=== PATIENT | female | born 1940 | race Caucasian/White ===

== ENCOUNTER 2023-08-25 09:01 | Outpatient (OUT) | payer MEDICARE, SELFPAY ==
[2023-08-25 09:28] LABS: Basophils Percent Auto 0.5 % (0.2-2.0); Eosinophils Absolute Auto 0.1 10^3/uL (0.0-0.7); Eosinophils Percent Auto 1.8 % (0.9-7.0); Hemoglobin 13.6 g/dL (12.0-16.0); Immature Granulocytes Abs Auto 0.02 10^3/uL (0.00-0.03); Immature Granulocytes Pct Auto 0.3 % (0.0-0.5); Lymphocytes Absolute Auto 3.4 10^3/uL (1.2-3.8); Lymphocytes Percent Auto 43.7 % (20.5-60.0); Mean Corpuscular HGB Conc 31.6 g/dL (29.9-35.2); Mean Corpuscular Hemoglobin 30.2 pg (26.7-34.0); Mean Corpuscular Volume 95.3 fL (81.0-99.0); Mean Platelet Volume 9.8 fL (9.5-13.5); Monocytes Absolute Auto 0.6 10^3/uL (0.3-0.8); Monocytes Percent Auto 8.2 % (1.7-12.0); Neutrophils Absolute Auto 3.6 10^3/uL (1.4-6.5); Neutrophils Percent Auto 45.5 % (43.0-75.0); Platelet Count 302 10^3/uL (150-450); Red Blood Count 4.51 10^6/uL (4.20-5.40); Red Cell Distribution Width 13.7 % (11.0-15.0); White Blood Count 7.8 10^3/uL (4.0-11.0)
[2023-08-25 10:14] LABS: Alanine Aminotransferase 21 U/L (14-59); Albumin Level 3.6 g/dL (3.4-5.0); Alkaline Phosphatase 59 U/L (46-116); Anion Gap 13.7; Aspartate Amino Transferase 15 U/L (15-37); BUN Creatinine Ratio 20.5; Bilirubin Total 0.7 mg/dL (0.2-1.0); Calcium 9.2 mg/dL (8.5-10.1); Carbon Dioxide 30.6 mmol/L (21.0-32.0); Chloride 103 mmol/L (98-107); Chol HDL Ratio 2.4; Cholesterol 133 mg/dL (<=200); Estimated GFR (African America >60 (>=60); Estimated GFR (Non-African Ame >60 (>=60); Free T3 2.86 pg/mL (2.18-3.98); Globulin 3.6 g/dL; Glucose 119 mg/dL (74-106); HDL Cholesterol 55 mg/dL (40-60); LDL Cholesterol Calculated 57.2 mg/dL; Potassium 4.3 mmol/L (3.5-5.1); Sodium 143 mmol/L (136-145); Thyroid Stimulating Hormone 0.105 uIU/mL (0.358-3.740); Total Protein 7.2 g/dL (6.4-8.2); Triglycerides 104 mg/dL (<=150); VLDL CHOLESTEROL 20.8 mg/dL
[2023-08-25 11:44] LABS: Microalbumin Urine Random 3.3 mg/dL (<=30.0)
[2023-08-25 11:45] LABS: Bilirubin Urine NEGATIVE (NEGATIVE); Blood Urine TRACE-I (NEGATIVE); Clarity Urine CLEAR (CLEAR); Color Urine LT. YELLOW (YELLOW); Glucose Urine UA NEGATIVE (NEGATIVE); Ketones Urine NEGATIVE (NEGATIVE); Leukocyte Esterase Urine TRACE (NEGATIVE); Nitrite Urine NEGATIVE (NEGATIVE); Protein Urine NEGATIVE (NEG/TRACE); Urobilinogen Urine 0.2 EU/dL (0.2-1.0); pH Urine 6.5 (5.0-9.0)
[2023-08-25 12:14] LABS: Bacteria Urine TRACE #/HPF (NONE SEEN); Cast Seen? NONE SEEN #/LPF (NONE SEEN); Crystals Seen? None Seen #/HPF (None Seen); Mucus Urine NONE SEEN (NONE SEEN); Squamous Epithelial Cell Urine FEW #/LPF (NONE/RARE); Urine Culture Indicated NO; WBC Urine 0-2 #/HPF (NONE SEEN)
[2023-08-25 17:10] LABS: Estimated Average Glucose 126 mg/dL
== END 2023-08-25 09:02 | disposition home or self-care (01) ==
PROVIDERS: PCP Nurse Practitioner; Visit Provider Nurse Practitioner
DX: I48.20 Chronic atrial fibrillation, unspecified (principal); E11.9 Type 2 diabetes mellitus without complications; E78.00 Pure hypercholesterolemia, unspecified; R94.6 Abnormal results of thyroid function studies
CPT/HCPCS: 36415; 80053; 80061; 81001; 82043; 83036; 84439; 84443; 84481; 85025

== ENCOUNTER 2023-09-15 09:25 | Outpatient (OUT) | payer MEDICARE, SELFPAY ==
[2023-09-15 12:08] LABS: Bilirubin Urine NEGATIVE (NEGATIVE); Blood Urine TRACE-I (NEGATIVE); Clarity Urine CLEAR (CLEAR); Color Urine YELLOW (YELLOW); Glucose Urine UA NEGATIVE (NEGATIVE); Ketones Urine NEGATIVE (NEGATIVE); Leukocyte Esterase Urine NEGATIVE (NEGATIVE); Nitrite Urine NEGATIVE (NEGATIVE); Protein Urine NEGATIVE (NEG/TRACE); Urobilinogen Urine 0.2 EU/dL (0.2-1.0); pH Urine 5.5 (5.0-9.0)
[2023-09-15 12:21] LABS: Bacteria Urine NONE SEEN #/HPF (NONE SEEN); Cast Seen? NONE SEEN #/LPF (NONE SEEN); Crystals Seen? None Seen #/HPF (None Seen); Mucus Urine NONE SEEN (NONE SEEN); RBC Urine 0-2 #/HPF (0-2); Squamous Epithelial Cell Urine RARE #/LPF (NONE/RARE); WBC Urine 0-2 #/HPF (NONE SEEN)
== END 2023-09-15 09:26 | disposition home or self-care (01) ==
LOC: LAB 09:25
PROVIDERS: PCP Nurse Practitioner; Visit Provider Nurse Practitioner
DX: R31.29 Other microscopic hematuria (principal)
CPT/HCPCS: 81001

== ENCOUNTER 2024-02-15 07:35 | Outpatient (OUT) | payer MEDICARE, SELFPAY ==
--- OUTSIDE RECORDS SUMMARY | 2024-02-15 07:39 | XMS_ITS | CCD ---
Author Organization [facility] Care Team Providers Care Fermenter Champagne Name Role Phone MD Glenroy Vera Attending Provider NON STAFF Primary Care Provider DO Howard Alejo Emergency Provider Kirstin Miller Primary Care Provider Al MD Perlita Pennington Admit Provider Al MD Perlita Pennington Attending Provider DO Colby Astorga Other Provider MD Rupert Anthony Attending Provider Glenroy Vera Unavailable CYNTHIA LINCOLN Attending Unavailable CYNTHIA LINCOLN Admitting Unavailable MD Kingston Gao Admit Provider MD Kingston Gao Attending Provider [phone] ELFEGO Dowling Other Provider Unavailable ELFEGO Winston Other Provider Unavailable ELFEGO Wahl Other Provider Unavailable ELFEGO Moise Other Provider Unavailable ELFEGO Marc Other Provider Unavailable ELFEGO Campbell Other Provider Unavailable ELFEGO Buck Other Provider Unavailable MD Cyndee Aguirre Other Provider MD Shadi Chahal Other Provider OMID Lorenz Other Provider DO Shelby Landrum Other Provider MD Kieran Scott Other Provider [phone] DO Jayesh Clark Other Provider [phone] MD Justyn Spann Other Provider MD Mayra Saha Other Provider Rubia, ANP-BC Selma Other Provider MD Lizette Pickard Other Provider MD Poli Collins Other Provider MD Andrea Muñoz Other Provider MD Jay Barrientos Other Provider DO Maykel Vila Other Provider Unavailable MD Sid Patel Other Provider MD Abilio Shafer Other Provider MD Gladys Cash Other Provider MD Dwight Kelley Other Provider Bailey, MODELING TEACHER-C Debbie Pleitez Other Provider MD Saulo Dukes Other Provider MD Abel Oglesby Other Provider MD Jesu Mcmanus Other Provider Unavailable MD Ann-Marie Mustafa Other Provider MD Rupert Anthony Other Provider MD Sandeep Morel Other Provider DO Letty Ramsey Other Provider MD Perlita Davis Other Provider DO Jr Zayas Other Provider DO Adis Rouse Other Provider OMID Singletary Other Provider DO Cm Zarco Other Provider MD Rik Davis Other Provider ELFEGO Hudson Other Provider Unavailable Unavailable Primary Care Provider MD Glenroy Grace Attending Provider Aichholz, Kirstin J Primary Care Provider Unavailable Primary Care Provider Unavailabl e Unavailable Primary Care Provider UnavailFANNIE [place] Referring Unavailable JUICE SEARS Attending Unavailable Josue SHIRLEY Admitting Unavailable JUICE SEARS Attending Unavailable JIN RIVERA Referring UnavailFANNIE [place] Referring Unavailable FANNIE BLANDON Referring Unavailable LUIZ ADAM Attending Unavailable AICHHOLZ, OCEAN TRANSPORTATION INTERMEDIARY KIRSTIN Primary Care Unavailable DR SHEILA INIGUEZ V Consulting Unavailable AICHHOLZ, OCEAN TRANSPORTATION INTERMEDIARY KIRSTIN Admitting Unavailable AICHHOLZ, OCEAN TRANSPORTATION INTERMEDIARY KIRSTIN Attending Unavailable AICHHOLZ, OCEAN TRANSPORTATION INTERMEDIARY KIRSTIN Consulting Unavailable AICHHOLZ, OCEAN TRANSPORTATION INTERMEDIARY KIRSTIN Primary Care Unavailable AICHHOLZ, OCEAN TRANSPORTATION INTERMEDIARY KIRSTIN Admitting Unavailable AICHHOLZ, OCEAN TRANSPORTATION INTERMEDIARY KIRSTIN Attending Unavailable AICHHOLZ, OCEAN TRANSPORTATION INTERMEDIARY KIRSTIN Consulting Unavailable AICHHOLZ, OCEAN TRANSPORTATION INTERMEDIARY KIRSTIN Primary Care Unavailable AICHHOLZ, OCEAN TRANSPORTATION INTERMEDIARY KIRSTIN Admitting Unavailable AICHHOLZ, OCEAN TRANSPORTATION INTERMEDIARY KIRSTIN Attending Unavailable AICHHOLZ, OCEAN TRANSPORTATION INTERMEDIARY KIRSTIN Primary Care Unavailable MISC, DR QUESADA Attending Unavailable MISCDR QUESADA Admitting Unavailable AICHHOLZ, OCEAN TRANSPORTATION INTERMEDIARY KIRSTIN Primary Care Unavailable AICHHOLZ, OCEAN TRANSPORTATION INTERMEDIARY KIRSTIN Admitting Unavailable AICHHOLZ, OCEAN TRANSPORTATION INTERMEDIARY KIRSTIN Attending Unavailable AICHHOLZ, OCEAN TRANSPORTATION INTERMEDIARY KIRSTIN Consulting Unavailable AICHHOLZ, OCEAN TRANSPORTATION INTERMEDIARY KIRSTIN Primary Care Unavailable DR SHEILA INIGUEZ V Consulting Unavailable AICHHOLZ, OCEAN TRANSPORTATION INTERMEDIARY KIRSTIN Admitting Unavailable AICHHOLZ, OCEAN TRANSPORTATION INTERMEDIARY KIRSTIN Attending Unavailable AICHHOLZ, OCEAN TRANSPORTATION INTERMEDIARY KIRSTIN Consulting Unavailable Glenroy Vera P Admitting Unavailable NON STAFF Primary Care Unavailable Glenroy Vera P Attending Unavailable NON STAFF Primary Care Unavailable Will Verael P Admitting Unavailable Glenroy Vera P Attending Unavailable Aichholz, Kirstin J Primary Care Unavailable Al Perlita Pennington Admitting Unavailab Rupert Joseph Attending Unavailable Colby Astorga Consulting Unavailable Aichholz, Kirstin J Primary Care Unavailable Kingston Gao Admitting Unavailable Kingston Gao Attending Unavailable Dinah Dowling Consulting Unavailable Rachna Winston Consulting Unavailable Giselle Wahl Consulting Unavailable Gloria Moise Consulting Unavailable Lucia Marc Consulting Unavailable Courtney Campbell Consulting Unavailable Cindy Buck Consulting Unavailable Cyndee Aguirre Consulting Unavailable TirsoShadi Consulting Unavailable Kirstin Lorenz Consulting Unavailable Shelby Landrum Consulting Unavailable Kieran Scott Consulting Unavailable Jayesh Clark Consulting UnavailJustyn Sanches Consulting Unavailable Mayra Saha Consulting Unavailable Selma Barkley Consulting Unavailable Lizette Pickard Consulting Unavailable Poli Collins Consulting Unavailable Andrea Muñoz Consulting Unavailable Jay Barrientos Consulting Unavailable Maykel Vila Consulting Unavailable Sid Patel Consulting Unavailable Abilio Shafer Consulting Unavailable Gladys Cash Consulting Unavailable Dwight Kelley Consulting Unavailable Debbie Avalos Consulting Unavailable Saulo Dukes Consulting Unavailab Abel Foley Consulting Unavailable Jesu Mcmanus Consulting Unavailable Ann-Marie Mustafa Consulting Unavailable Rupert Anthony Consulting Unavailable Sandeep Morel Consulting Jacquelin Letty Gómez Consulting Unavailable Perlita Davis Consulting Unavailab Jr Almeida Consulting Unavailable Adis Rouse Consulting Unavailable ObikaSarai Consulting Unavailable Cm Zarco Consulting Unavailable DaromarDenayalex M Consulting Unavailable Lexie Hudson Consulting Unavailable Kirstin Miller Primary Care Unavailable Glenroy Vera Attending Unavailable Glenroy Vera Admitting Unavailable EPHRAIM NAIR Attending Unavailable MONI ROBEROSN Attending Unavailable Medications Current Medications Medication Drug Class(es) Dates Sig (Normalized) Sig (Original) acetaminophen 500 mg oral tablet (14 sources) Start: 04-14-2022 take 500 mg by mouth every four hours Acetaminophen Active 500 MG PO Q4H 100 30 April 14, 2022 3:08pm Start: 04-04-2022 take 2 tablets by mo uth every four hours as needed acetaminophen (TYLENOL) 325 mg tablet 2 tablets by ORAL/FEEDING TUBE route every 4 hours as needed for pain or fever (specify). 0 04/04/2022 Active Comment on above: 2 tablets by ORAL/FE EDING TUBE route every 4 hours as needed for pain or fever (specify). aluminum hydroxide 40 mg/ml / magnesium hydroxide 40 mg/ml / simethicone 4 mg/ml oral suspension (2 sources) Start: 04-14-20 take 1 mL by mouth every four hours Alum-Mag Hydroxide-Simeth (Mag-Al Plus) 200-200-20 mg/5 mL Suspension Active 30 ML PO Q4H 1 April 14, 2022 3:08pm atorvastatin 40 mg oral tablet (2 sources) HMG-CoA Reductase Inhibitor Start: 04-14-20 take 40 mg by mouth once daily Atorvastatin Active 40 MG PO Daily April 14, 2022 3:08pm bumetanide 1 mg oral tablet (20 sources) Loop Diuretic Start: 03-09-20 End: 04-14-20 take 0.5-1 mg by mouth once daily Bumetanide Active 0.5 - 1 MG PO Daily April 14, 2022 12:00am Comment on above: Take 0.5-1 mg by papa once daily as needed (edema). cyclobenzaprine hydrochloride 5 mg oral tablet (2 sources) Muscle Relaxant Start: 04-14-20 take 5 mg by mouth three times daily Cyclobenzaprine Active 5 MG PO Three times daily April 14, 2022 3:08pm gabapentin 100 mg oral capsule (20 sources) Anti-epileptic Agent Start: 03-09-20 End: 04-14-20 take 100 mg by mouth three times daily Gabapentin Active 100 MG PO Three times daily April 14, 2022 12:00am take 1 capsule by mo [facility] every twenty-four hours Gabapentin 100 MG 1 capsule Orally Once a day Active Comment on above: Take 100 mg by mouth three times daily. glipiZIDE 5 mg oral tablet (20 sources) Sulfonylurea Start: 2 End: 2 take 5 mg by mouth twice daily at mealtime Glipizide Active 5 MG PO Twice daily with meals 60 April 14, 2022 12:00am Comment on above: Take 5 mg by mouth t wice daily before meals. lidocaine 0.04 mg/mg medicated patch (14 sources) Antiarrhythmic, Amide Local Anesthetic Start: 2 apply 1 dose topically once daily Lidocaine (Lidocaine Pain Relief) 4 % Adhesive Patch,Medicated Active 2 PATCH TOPICAL Daily 60 April 14, 2022 3:08pm Start: 04-05-2022 lidocaine (OFE ONPAS) 4 % patch Apply 2 Patches as directed once daily. 0 04/05/2022 Active Comment on above: Apply 2 Patches as d irected once daily. lisinopril 5 mg oral tablet (20 sources) Angiotensin Converting Enzyme Inhibitor Start: 03-09-2022 End: 04-14-2022 take 5 mg by mouth once daily Lisinopril Active 5 MG PO Daily April 14, 2022 12:00am Comment on above: Take 5 mg by mouth o nce daily. 24 hr metoprolol succinate 100 mg extended release oral tablet (20 sources) beta-Adrenergic Donna Start: 03-09-2022 End: 04-14-2022 take 100 mg by mouth once daily Metoprolol Succinate Active 100 MG PO Daily April 14, 2022 12:00am take 1 tablet by papa th every twelve hours Metoprolol Tartrate 100 MG 1 tablet with food Orally Twice a day Active Comment on above: Take 100 mg by mouth once daily. spironolactone 25 mg oral tablet (19 sources) Aldosterone Antagonist Start: 03-09-20 End: 04-14-20 take 12.5 mg by mouth once daily Spironolactone Active 12.5 MG PO Daily April 14, 2022 12:00am spironolactone ( ALDACTONE) 25 mg tablet Take 12.5 mg by mouth once daily. 0 Active Comment on above: Take 12.5 mg by mout h once daily. Completed/Discontinued Medications Medication Drug Class(es) Dates Sig (Normalized) Sig (Original) apixaban 5 mg oral tablet (20 sources) Factor Xa Inhibitor Start: 03-09-2022 End: 04-14-2022 take 1 tablet by mouth twice daily apixaban (ELIQUIS) 5 mg tab(s) Take 1 tablet by mouth twice daily. 0 04/10/2022 Active Comment on above: Take 1 tablet by papa th twice daily. celecoxib 200 mg oral capsule (6 sources) Nonsteroidal Anti-inflammatory Drug Start: 03-09-2022 End: 04-07-2022 take 200 mg by mouth once daily Celecoxib Discontinued 200 MG PO Daily March 09, 2022 2:30pm April 07, 2022 3:44pm docusate sodium 100 mg oral capsule (12 sources) Start: 04-04-2022 take 1 capsule by mouth twice daily docusate sodium (COLACE) 100 mg capsule Take 1 capsule by mouth twice daily. 0 04/04/2022 Active Comment on above: Take 1 capsule by mo [facility] twice daily. ezetimibe 10 mg oral tablet (18 sources) Dietary Cholesterol Absorption Inhibitor Start: 03-09-2022 End: 04-14-2022 take 10 mg by mouth once daily Ezetimibe Discontinued 10 MG PO Daily March 09, 2022 2:30pm April 14, 2022 3:13pm Comment on above: Take 10 mg by mouth once daily. glucose 0.45 mg/mg oral gel (12 sources) Start: 04-04-2022 dextrose (TRUEPLUS) 15 gram/32 mL oral gel Take 32 mL by mouth as needed. 0 04/04/2022 Active Comment on above: Take 32 mL by mouth as needed. metFORMIN hydrochloride 500 mg oral tablet (20 sources) Biguanide Start: 04-07-2022 take 1 tablet by mouth twice daily at mealtime metFORMIN (GLUCOPHAGE) 500 mg tablet Take 1 tablet by mouth twice daily with meals. 0 04/07/2022 Active Start: 03-09-2022 take 1000 mg by mout h twice daily Metformin Active 1000 MG PO Twice daily March 09, 2022 2:30pm Start: 03-09-2022 End: 04-14-2022 take 500 mg by mouth twice daily Metformin Discontinued 500 MG PO Twice daily March 09, 2022 2:30pm April 14, 2022 3:13pm Comment on above: Take 1 tablet by papa twice daily with meals. methocarbamol 750 mg oral tablet (14 sources) Muscle Relaxant Start: 04-04-20 End: 04-14-20 take 1 tablet by mouth every eight hours as needed methocarbamol (ROBAXIN) 750 mg tablet Take 1 tablet by mouth three times daily as needed. 0 04/04/2022 Active Comment on above: Take 1 tablet by papa th three times daily as needed. rosuvastatin calcium 5 mg oral tablet (17 sources) HMG-CoA Reductase Inhibitor Start: 03-09-20 End: 04-14-20 take 5 mg by mouth once daily Rosuvastatin Discontinued 5 MG PO Daily March 09, 2022 2:30pm April 14, 2022 3:13pm Comment on above: Take 5 mg by mouth o nce daily. tiZANidine 4 mg oral tablet (11 sources) Central alpha-2 Adrenergic Agonist Start: 03-09-20 End: 03-28-20 take 4 mg by mouth at bedtime Tizanidine Discontinued 4 MG PO Bedtime March 09, 2022 2:30pm March 28, 2022 10:03am Start: 03-09-2022 End: 04-07-2022 take 2 mg by mouth at bedtime Tizanidine Discontinued 2 MG PO Bedtime March 09, 2022 2:30pm April 07, 2022 3:46pm Problems Active Problems Problem Classification Problem Date Documented Da te Episodic/Chronic Cardiac dysrhythmias (19 sources) Atrial fibrillation; Translations: [Unspecified atrial fibrillation] Onset: 03-24-2022 03-28-2022 Chronic Congestive heart failure; nonhypertensive (2 sources) Chronic diastolic (congestive) heart failure; Translations: [Chronic diastolic (congestive) heart failure] Onset: 02-02-2024 Chronic Coronary atherosclerosis and other heart disease (4 sources) Coronary arteriosclerosis; Translations: [Atherosclerotic heart disease of [place] coronary artery without angina pectoris] Onset: 02-02-2024 03-28-2022 Chronic Diabetes mellitus without complication (18 sources) Diabetes mellitus; Translations: [Type 2 diabetes mellitus without complications] Onset: 03-24-2022 03-28-2022 Chronic Disorders of lipid metabolism (20 sources) Hyperlipidemia; Translations: [Hyperlipidemia, unspecified] Onset: 03-24-2022 03-28-2022 Chronic Essential hypertension (19 sources) Hypertensive disorder; Translations: [Essential (primary) hypertension] Onset: 03-24-2022 03-28-2022 Chronic Other acquired deformities (1 source) Scoliosis of lumbar spine; Translations: [Other forms of scoliosis, lumbar region] Chronic Other screening for suspected conditions (not mental disorders or infectious disease) (4 sources) Abnormal results of thyroid function studies; Translations: [ABNORMAL RESULTS THR FUNCTION STDY] Onset: 08-15-2022 Episodic Peripheral and visceral atherosclerosis (1 source) Peripheral vascular disease, unspecified; Translations: [PERIPHERAL VASCULAR DISEASE UNS] Onset: 02-16-2022 Chronic Residual codes; unclassified (2 sources) History of lumbar laminectomy; Translations: [Other specified postprocedural states] 04-08-2022 Episodic Spondylosis; intervertebral disc disorders; other back problems (4 sources) Spondylosis without myelopathy or radiculopathy, lumbar region; Translations: [SPONDYLS W/O MYELO-/RADICULOP LUMB] Onset: 02-18-2022 Chronic Unclassified (1 source) M48.061 - Spinal stenosis, lumbar region without neurogenic claudication; Translations: [M48.061 - Spinal stenosis, lumbar region without neurogenic claudication] Onset: 03-24-2022 Unclassified (1 source) Z01.812 - Encounter for preprocedural laboratory examination; Translations: [Z01.812 - Encounter for preprocedural laboratory examination] Onset: 03-09-2022 Unclassified (1 source) Z13.820 - Encounter for screening for osteoporosis; Translations: [Z13.820 - Encounter for screening for osteoporosis] Onset: 02-28-2022 Past or Other Problems Problem Classification Problem Date Documented Da te Episodic/Chronic Acquired foot deformities (20 sources) Foot-drop; Translations: [Foot drop, right foot] Onset: 03-23-2022 Resolved: 03-23-2022 03-23-2022 Episodic Administrative/social admission (5 sources) Other reduced mobility; Translations: [Impaired mobility and activities of daily living] Onset: 04-07-2022 04-08-2022 Episodic Malaise and fatigue (1 source) Weakness; Translations: [WEAKNESS] Onset: 02-10-2022 Episodic Other connective tissue disease (13 sources) Weakness of right leg; Translations: [Other symptoms and signs involving the musculoskeletal system] Onset: 03-29-2022 03-29-2022 Episodic Other gastrointestinal disorders (12 sources) Constipation; Translations: [Constipation, unspecified] Onset: 04-02-2022 04-03-2022 Episodic Residual codes; unclassified (3 sources) Other specified postprocedural states; Translations: [Other postprocedural status] Onset: 04-07-2022 Episodic Residual codes; unclassified (1 source) Other specified health status; Translations: [Z78.9 - Other specified health status] Onset: 04-07-2022 Episodic Residual codes; unclassified (2 sources) Edema, unspecified; Translations: [Edema, unspecified] Onset: 07-13-2023 Episodic Spondylosis; intervertebral disc disorders; other back problems (20 sources) Spinal stenosis of lumbar region; Translations: [Spinal stenosis, lumbar region without neurogenic claudication] Onset: 03-23-2022 Resolved: 03-23-2022 03-23-2022 Episodic Results Test Name Value Interpretation Reference Range Facility Office Visiton 02-02-2024 Follow-up visit [id number] Saeed Sarabia 1940 F Date Provider Department Center 02/02/2024 MONI SR [facility] Family History Problem Relation Age of Onset Heart attack Mother Coronary artery disease Mother Heart attack Father Coronary artery disease Father Multiple sclerosis Sister Family Status - Relation Status Age at Mother Father Sister Level of Service:[address]702 [place] OFFICE/OUTPATIENT ESTABLISHED MOD MDM 30 MIN Reason for Visit and Comments: Follow-up [189323] - 6 months Normal [facility] Office Visiton 07-13-2023 Follow-up visit [id number] Saeed Sarabia 1940 F Date Provider Department Center 07/13/2023 EPHRAIM MCKENZIE [facility] Family History Problem Relation Age of Onset Heart attack Mother Coronary artery disease Mother Heart attack Father Coronary artery disease Father Multiple sclerosis Sister Family Status - Relation Status Age at Mother Father Sister Level of Service:[address] [place] OFFICE/OUTPATIENT ESTABLISHED LOW MDM 20-29 MIN Normal [facility] CNPNon 09-07-2022 CNPN Telephone (NE50MN) SAEED SARABIA ([id number]) 1940 F Date Time Provider Department 09/07/22 JUICE SEARS [id number] During your visit today, we recorded the following information about you: Xi Arora 09/07/2022 10:56 AM Signed Discharge summary uploaded to [facility]. Francis Mcmanus RN 09/07/2022 2:05 PM Signed [facility] d/c note reviewed: Allergies As of Date: 09/07/2022 (No Known Allergies) Date Reviewed: 05/17/2022 Reviewed by: Paige Andrews MA - Fully Assessed Reason for Visit: Received Outside Medical Records [[id number]] Cmt: [facility] Prescriptions as of 09/07/2022 - metFORMIN (GLUCOPHAGE) 500 mg tablet Take 1 tablet by mouth twice daily with meals. - apixaban (ELIQUIS) 5 mg tab(s) Take 1 tablet by mouth twice daily. - acetaminophen (TYLENOL) 325 mg tablet 2 tablets by ORAL/FEEDING TUBE route every 4 hours as needed for pain or fever (specify). - dextrose (TRUEPLUS) 15 gram/32 mL oral gel Take 32 mL by mouth as needed. - docusate sodium (COLACE) 100 mg capsule Take 1 capsule by mouth twice daily. - lidocaine (SALONPAS) 4 % patch Apply 2 Patches as directed once daily. - methocarbamol (ROBAXIN) 750 mg tablet Take 1 tablet by mouth three times daily as needed. - bumetanide (BUMEX) 1 mg tablet Take 0.5-1 mg by mouth once daily as needed (edema). - gabapentin (NEURONTIN) 100 mg capsule Take 100 mg by mouth three times daily. - ezetimibe (ZETIA) 10 mg tablet Take 10 mg by mouth once daily. - lisinopril (ZESTRIL, PRINIVIL) 5 mg tablet Take 5 mg by mouth once daily. - metoprolol succinate ER (TOPROL XL) 100 mg Take 100 mg by mouth once daily. - rosuvastatin (CRESTOR) 5 mg tablet Take 5 mg by mouth once daily. - glipiZIDE (GLUCOTROL) 5 mg tablet Take 5 mg by mouth twice daily before meals. - spironolactone (ALDACTONE) 25 mg tablet Take 12.5 mg by mouth once daily. Problem List As Of Date 09/07/2022 Noted Resolved Spinal stenosis [M48.00] 03/28/2022 Right leg weakness [R29.898] 03/29/2022 HLD (hyperlipidemia) [E78.5] 03/29/2022 Foot drop, right foot [M21.371] 03/29/2022 Atrial fibrillation (HCC) [I48.91] 03/29/2022 Benign essential HTN [I10] 03/29/2022 DM type 2 (diabetes mellitus, type 2) (HCC) [E1*03/29/2022 Constipation [K59.00] 04/02/2022 Encounter Status:Closed by FRANCIS MCMANUS on 09/07/22 [facility] CNOVon 08-23-2022 CNOV Office Visit (ISAELSES) SAEED SARABIA ([id number]) 1940 F Date Time Provider Department 08/23/22 12:00 PM LUIZ ADAM During your visit today, we recorded the following information about you: Luiz Adam PA-C 08/23/2022 1:10 PM Signed SPINE SURGERY FOLLOW UP SERVICE DATE: 08/23/2022 SURGERY DATE: 03/31/2022 HPI: Saeed Sarabia is an 81 yo female with history of cardiac stent (on Eliquis)seen for 5 month post operative follow up s/p L2-5 laminectomy on 03/31/[address] Sears. She initially presented with significant right foot drop at which time imaging revealed lumbar stenosis. She was last seen in clinic for 6 week post op appt on 05/17/22. She was given a script for outpatient PT for continued lower extremity strengthening to improve her right foot drop. Today, she reports her right foot drop is continuing to improve. She completed PT twice a week for 6 weeks and feels this helped. She is now doing home exercises with ankle exercises/pumps using the exercise bands, and she is riding the recumbent bike every day for 30 minutes. She feels that overall she is doing well. Denies incisional issues, low back pain, lower extremity pain or paresthesias, gait disturbance, or bowel or bladder incontinence. She wears an AFO brace on the right foot. ANTIPLATELET OR ANTICOAGULATION STATUS: Yes cardiac stent on Eliquis PROMIS Score Percentiles Percentiles provide an indication of how the patient's score ranks in relation to the general population. Higher percentile rankings indicate better function/quality of life. 50th percentile is the average of the general population and indicates half of respondents had a worse score. Depression Screening: PHQ-9 Self-Harm (Item 9) response options: 0 Not at all 1 Several days 2 More than half the days 3 Nearly every day PHQ-9 Levels: 0-4 No to mild depression 5-9 Mild depression 10-14 Moderate depression 15-19 Moderately severe depression 20-27 Severe depression PHYSICAL EXAM: GENERAL APPEARANCE: Moderately obese.In no acute distress NEURO PSYCH: Patient oriented to person, place, and time. Mood pleasant. Benign affect. MUSCULOSKELETAL VISUAL INSPECTION CERVICAL: WNL THORACIC: WNL LUMBAR: WNL, well healed lumbar incision MOTOR: 5/5 in upper extremity muscle groups bilaterally. 4+/5 in bilateral hip flexors, 5/5 in bilateral quadriceps, 2/5 in right DF and PF, 5/5 in left DF and PF SENSORY: Normal sensory exam GAIT: Abnormal. Right foot drop. REFLEXES: +2 to bilateral U/L extremities. PROPRIOCEPTION: Normal. ASSESSMENT/PLAN Saeed Sarabia is an 81 yo female with history of cardiac stent (on Eliquis)seen for 5 month post operative follow up s/p L2-5 laminectomy on 03/31/[address] Sears.Today, she reports her right foot drop is continuing to improve. She completed PT twice a week for 6 weeks and feels this helped. She is now doing home exercises with ankle exercises/pumps using the exercise bands, and she is riding the recumbent bike every day for 30 minutes. She feels that overall she is doing well. Denies incisional issues, low back pain, lower extremity pain or paresthesias, gait disturbance, or bowel or bladder incontinence. She wears an AFO brace on the right foot. Patient is progressing well overall but does continue to have a right foot drop. I anticipate that her right foot drop will continue to improve with more time and strengthening exercises. Advised the patient to continue all that she is currently doing and to contact our office if she would like to resume outpatient PT and I can order a new script. All questions and concerns were answered and addressed. Patient is agreeable with this plan. The majority of the visit was spent counseling and/or coordinating care for the patient. The patient was counseled regarding post op recovery and nerve regeneration. Total face to face time was 10 minutes. SIGNATURE: Luiz Adam PA-C PATIENT NAME: Saeed Sarabia DATE: August 23, 2022 TIME: 9:09 AM PAGER: Referring Provider: SELF [200] Allergies As of Date: 08/23/2022 (No Known Allergies) Date Reviewed: 05/17/2022 Reviewed by: Paige Andrews MA - Fully Assessed Primary Visit Diagnosis:Foot drop, right foot [M21.371] Prescriptions as of 08/24/2022 - metFORMIN (GLUCOPHAGE) 500 mg tablet Take 1 tablet by mouth twice daily with meals. - apixaban (ELIQUIS) 5 mg tab(s) Take 1 tablet by mouth twice daily. - acetaminophen (TYLENOL) 325 mg tablet 2 tablets by ORAL/FEEDING TUBE route every 4 hours as needed for pain or fever (specify). - dextrose (TRUEPLUS) 15 gram/32 mL oral gel Take 32 mL by mouth as needed. - docusate sodium (COLACE) 100 mg capsule Take 1 capsule by mouth twice daily. - lidocaine (SALONPAS) 4 % patch Apply 2 Patches as directed once daily. (more content not included)... Normal [facility] FREE T3on 08-15-2022 FREE T3 2.11 pg/mlL Critically low 2.18-3.98 [facility] Comment on above: Performed By: #### F T3, TSH, CMP, LIPID ####[facility] [address] [place], [place] [address]LmDr. Adilene Koo FREE T4on 08-15-2022 Free T4 [Mass/Vol] 1.13 ng/dL Normal 0.76-1.46 [facility] Comment on above: Performed By: #### F T4 #### [facility] [address] [place], [place] [address] Dr. Adilene Koo GLYCOHEMOGLOBIN A1Con 2021 ADA RECOMMENDATION SEE BELOW Normal [facility] Comment on above: Result Comment: ADA RECOMMENDED LIMIT 4.0 - 6.0 ADA THERAPEUTIC TARGET < 7.0 ACTION SUGGESTED > 7.0 Performed By: #### A 1C #### [facility] [address] [place] [address] [address] Adilene Koo Glucose [Mass/Vol] 137 mg/dL Normal [facility] Comment on above: Performed By: #### A 1C #### [facility] [address] [place], [place] [address] Dr. Adilene Koo HbA1c (Bld) [Mass fraction] 6.4 % Critically high 4.5-6.2 [facility] Comment on above: Performed By: #### A 1C #### [facility] [address] [address] [address] Adilene Koo LIPID PROFILEon 08-15-2022 CHOL-HDL RATIO NORM SEE BELOW Normal [facility] Comment on above: Result Comment: 3.3 - 4.4 LOW RISK 4.4 - 7.1 AVERAGE RISK 7.1 - 11.0 MODERATE RISK >11.0 HIGH RISK Performed By: #### F T3, TSH, CMP, LIPID ####[facility] [address] [place] [id number]. Adilene Koo Cholesterol [Mass/Vol] 127 mg/dL Normal <=200 [facility] Comment on above: Performed By: #### F T3, TSH, CMP, LIPID ####[facility] [address] [place], [place] [address]IqKen Koo Cholesterol in HDL [Mass/Vol] 48 mg/dL Normal 40-60 [facility] Comment on above: Performed By: #### F T3, TSH, CMP, LIPID ####[facility] [address] [place], [place] [address]Pr. Adilene Koo Cholesterol in LDL [Mass/Vol] 60.2 mg/dL Normal [facility] Comment on above: Performed By: #### F T3, TSH, CMP, LIPID ####[facility] [address] [place], [place] [address]Wc. Adilene Koo Cholesterol.total/Choles terol in HDL [Mass ratio] 2.6 {ratio} Normal [facility] Comment on above: Performed By: #### F T3, TSH, CMP, LIPID ####[facility] [address] [place], [place] [address]Tx. Adilene Koo HDL NORMAL > or = 60 mg/dl - LOW CARDIOVASCULAR RISK <40 mg/dl - HIGH CARDIOVASCULAR RISK Normal [facility] Comment on above: Performed By: #### F T3, TSH, CMP, LIPID ####[facility] [address] [place] [id number]. Adilene Koo LDL CALC NORMAL SEE BELOW Normal [facility] Comment on above: Result Comment: <100 mg/dl OPTIMAL 100 - 129 mg/dl NEAR OR ABOVE OPTIMAL 130 - 159 mg/dl BORDERLINE HIGH 160 - 189 mg/dl HIGH >190 mg/dl VERY HIGH Performed By: #### F T3, TSH, CMP, LIPID ####[facility] [address] [place] [address]Dr. Adilene Koo Triglyceride [Mass/Vol] 94 mg/dL Normal <=150 [facility] Comment on above: Performed By: #### F T3, TSH, CMP, LIPID ####[facility] [address] [place] [id number]. Adilene Koo VLDL CALC 18.8 mg/dL Normal [facility] Comment on above: Performed By: #### F T3, TSH, CMP, LIPID ####[facility] [address] [place] [id number]. Adilene Koo MICROALBUMIN, RAND URon 11-0 mALB 1.6 mg/L Normal <=30.0 [facility] Comment on above: Performed By: #### M ALBR #### [facility] [address] [place], [place] [address] Dr. Adilene Koo PROF 14(COMP METB)on 022 Albumin [Mass/Vol] 3.2 g/dL Critically low 3.4-5.0 [facility] Comment on above: Performed By: #### F T3, TSH, CMP, LIPID ####[facility] [address] [place] [id number]. Adilene Koo Albumin/Globulin [Mass ratio] 0.9 {ratio} Normal [facility] Comment on above: Performed By: #### F T3, TSH, CMP, LIPID ####[facility] [address] [place] [address]Dr. Adilene Koo ALP [Catalytic activity/Vol] 59 U/L Normal 46-116 [facility] Comment on above: Performed By: #### F T3, TSH, CMP, LIPID ####[facility] [address] [place] [address]Dr. Adilene Koo ALT [Catalytic activity/Vol] 19 U/L Normal 14-59 [facility] Comment on above: Performed By: #### F T3, TSH, CMP, LIPID ####[facility] [address] [place], [place] [address]Dr. Adilene Koo Anion gap [Moles/Vol] 10.8 mmol/L Normal [facility] Comment on above: Performed By: #### F T3, TSH, CMP, LIPID ####[facility] [address] [place], [place] [address]Dr. Adilene Koo AST [Catalytic activity/Vol] 18 U/L Normal 15-37 [facility] Comment on above: Performed By: #### F T3, TSH, CMP, LIPID ####[facility] [address] [place], [place] [address]Dr. Adilene Koo Bilirubin [Mass/Vol] 0.4 mg/dL Normal 0.2-1.0 [facility] Comment on above: Performed By: #### F T3, TSH, CMP, LIPID ####[facility] [address] [place], [place] [address]Dr. Adilene Koo Calcium [Mass/Vol] 9.4 mg/dL Normal 8.5-10.1 [facility] Comment on above: Performed By: #### F T3, TSH, CMP, LIPID ####[facility] [address] [place], [place] [address]Dr. Adilene Koo Chloride [Moles/Vol] 106 mmol/L Normal 98-107 [facility] Comment on above: Performed By: #### F T3, TSH, CMP, LIPID ####[facility] [address] [place] [id number]. Adilene Koo CO2 [Moles/Vol] 28.9 mmol/L Normal 21.0-32.0 [facility] Comment on above: Performed By: #### F T3, TSH, CMP, LIPID ####[facility] [address] [place] [id number]. Josephinerossy Koo Creatinine [Mass/Vol] 0.73 mg/dL Normal 0.55-1.02 [facility] Comment on above: Performed By: #### F T3, TSH, CMP, LIPID ####[facility] [address] [place] [id number]. Adilene Koo EGFR-AF AUSTRALIAN >60 Normal >=60 [facility] Comment on above: Performed By: #### F T3, TSH, CMP, LIPID ####[facility] [address] [place] [address]Dr. Adilene Koo EGFR-NON AF AUSTRALIAN >60 Normal >=60 [facility] Comment on above: Performed By: #### F T3, TSH, CMP, LIPID ####[facility] [address] [place] [address]Dr. Adilene Koo Globulin (S) [Mass/Vol] 3.6 g/dL Normal [facility] Comment on above: Performed By: #### F T3, TSH, CMP, LIPID ####[facility] [address] [place] [phone]. Adilene Koo Glucose [Mass/Vol] 94 mg/dL Normal 74-106 [facility] Comment on above: Performed By: #### F T3, TSH, CMP, LIPID ####[facility] [address] [place] [phone]. Adilene Koo Potassium [Moles/Vol] 4.7 mmol/L Normal 3.5-5.1 [facility] Comment on above: Performed By: #### F T3, TSH, CMP, LIPID ####[facility] [address] [place] [id number]. Adilene Koo Protein [Mass/Vol] 6.8 g/dL Normal 6.4-8.2 [facility] Comment on above: Performed By: #### F T3, TSH, CMP, LIPID ####[facility] [address] [place] [address]Dr. Adilene Koo Sodium [Moles/Vol] 141 mmol/L Normal 136-145 [facility] Comment on above: Performed By: #### F T3, TSH, CMP, LIPID ####[facility] [address] [place] [address]Dr. Adilene Koo Urea nitrogen [Mass/Vol] 15.0 mg/dL Normal 7.0-18.0 [facility] Comment on above: Performed By: #### F T3, TSH, CMP, LIPID ####[facility] [address] [place] [address]Dr. Adilene Koo Urea nitrogen/Creatinine [Mass ratio] 20.5 mg/mg Normal [facility] Comment on above: Performed By: #### F T3, TSH, CMP, LIPID ####[facility] [address] [place] [address]Dr. Adilene Koo TSHon 08-15-2022 TSH 0.219 uIU/mL Critically low 0.358-3.740 [facility] Comment on above: Performed By: #### F T3, TSH, CMP, LIPID ####[facility] [address] [place] [address]Dr. Adilene Koo UA RANDOM W/MICROSCOPICon BACTERIA NONE SEEN Normal NONE SEEN [facility] Comment on above: Performed By: #### U AMIC #### [facility] [address] [place] [address] Dr. Adilene Koo Bilirubin Ql (U) Negative Normal NEGATIVE [facility] Comment on above: Performed By: #### U AMIC #### [facility] [address] [address] [address] Adilene Koo CAST NONE SEEN Normal NONE SEEN [facility] Comment on above: Performed By: #### U AMIC #### [facility] [address] [address] [address] Adilene Koo Clarity (U) CLEAR Normal CLEAR [facility] Comment on above: Performed By: #### U AMIC #### [facility] [address] [address] [address] Adilene Koo Color (U) LT. YELLOW Normal YELLOW [facility] Comment on above: Performed By: #### U AMIC #### [facility] [address] [address] [address] Adilene Koo Crystals LM Nom (Urine sed) NONE SEEN Normal NONE SEEN [facility] Comment on above: Performed By: #### U AMIC #### [facility] [address] [address] [address] Adilene Koo Epithelial cells LM Ql (Urine sed) RARE Normal NONE SEEN /RARE [facility] Comment on above: Performed By: #### U AMIC #### [facility] [address] [place] [address] Dr. Adilene Koo Glucose Ql (U) Negative Normal NEGATIVE [facility] Comment on above: Performed By: #### U AMIC #### [facility] [address] [place] [address] Dr. Adilene Koo Hemoglobin Ql (U) Negative Normal NEGATIVE [facility] Comment on above: Performed By: #### U AMIC #### [facility] [address] [place] [address] Dr. Adilene Koo Ketones Ql (U) Negative Normal NEGATIVE [facility] Comment on above: Performed By: #### U AMIC #### [facility] [address] [address] [address] Adilene Koo LEUKOCYTES Negative Normal NEGATIVE [facility] Comment on above: Performed By: #### U AMIC #### [facility] [address] [address] [address] Adilene Koo MUCOUS NONE SEEN Normal NONE SEEN [facility] Comment on above: Performed By: #### U AMIC #### [facility] [address] [place] [address] Dr. Adilene Koo Nitrite Ql (U) Negative Normal NEGATIVE [facility] Comment on above: Performed By: #### U AMIC #### [facility] [address] [address] [address] Adilene Koo pH (U) 6.0 [pH] Normal 5-9 [facility] Comment on above: Performed By: #### U AMIC #### [facility] [address] [address] [address] Adilene Koo RBC 0-2 Normal 0-2 [facility] Comment on above: Performed By: #### U AMIC #### [facility] [address] [address] [address] Adilene Koo SPEC GRAVITY 1.020 Normal 1.005-<=1.02 5 [facility] Comment on above: Performed By: #### U AMIC #### [facility] [address] [place] [address] Dr. Adilene Koo UA PROTEIN Negative Normal NEGATIVE/ TRACE [facility] Comment on above: Performed By: #### U AMIC #### [facility] [address] [place] [address] Dr. Adilene Koo Urobilinogen Qn (U) 0.2 {Juan'U}/dL Normal 0.2 - 1. 0 [facility] Comment on above: Performed By: #### U AMIC #### [facility] [address] [place] [address] Dr. Adilene Koo WBC 0-2 Abnormal NONE SEEN [facility] Comment on above: Performed By: #### U AMIC #### [facility] [address] [place] [address] Dr. Adilene Billingsley [facility]-29-2022 [facility] SAEED SARABIA ([id number]) 1940 F Date Time Provider Department 07/29/22 JUICE SEARS NE50MN During your visit today, we recorded the following information about you: Janice Alva Sec 07/29/2022 10:27 AM Signed SURGERY respiratory therapy aide Calling: Fax received from [facility] Dirk Villaeral PT Is Patient Requesting Appointment?: No Is Patient Calling due to Pain?: No Is Patient Requesting Medication?: No General Concerns: Physical Therapy Recertification Note to be signed and returned by fax to [phone]. Patient of: Dr. Renu Mcmanus RN 07/29/2022 12:14 PM Signed Paperwork uploaded via [employer]. Sent to Luis Adam for review and signature. Copies faxed to Tommie @ [phone] and onbase. Francis Mcmanus RN Allergies As of Date: 07/29/2022 (No Known Allergies) Date Reviewed: 05/17/2022 Reviewed by: Paige Andrews MA - Fully Assessed Reason for Visit: Other [Other] Cmt: Physical Therapy Recertification Note Prescriptions as of 07/29/2022 - metFORMIN (GLUCOPHAGE) 500 mg tablet Take 1 tablet by mouth twice daily with meals. - apixaban (ELIQUIS) 5 mg tab(s) Take 1 tablet by mouth twice daily. - acetaminophen (TYLENOL) 325 mg tablet 2 tablets by ORAL/FEEDING TUBE route every 4 hours as needed for pain or fever (specify). - dextrose (TRUEPLUS) 15 gram/32 mL oral gel Take 32 mL by mouth as needed. - docusate sodium (COLACE) 100 mg capsule Take 1 capsule by mouth twice daily. - lidocaine (SALONPAS) 4 % patch Apply 2 Patches as directed once daily. - methocarbamol (ROBAXIN) 750 mg tablet Take 1 tablet by mouth three times daily as needed. - bumetanide (BUMEX) 1 mg tablet Take 0.5-1 mg by mouth once daily as needed (edema). - gabapentin (NEURONTIN) 100 mg capsule Take 100 mg by mouth three times daily. - ezetimibe (ZETIA) 10 mg tablet Take 10 mg by mouth once daily. - lisinopril (ZESTRIL, PRINIVIL) 5 mg tablet Take 5 mg by mouth once daily. - metoprolol succinate ER (TOPROL XL) 100 mg Take 100 mg by mouth once daily. - rosuvastatin (CRESTOR) 5 mg tablet Take 5 mg by mouth once daily. - glipiZIDE (GLUCOTROL) 5 mg tablet Take 5 mg by mouth twice daily before meals. - spironolactone (ALDACTONE) 25 mg tablet Take 12.5 mg by mouth once daily. Problem List As Of Date 07/29/2022 Noted Resolved Spinal stenosis [M48.00] 03/28/2022 Right leg weakness [R29.898] 03/29/2022 HLD (hyperlipidemia) [E78.5] 03/29/2022 Foot drop, right foot [M21.371] 03/29/2022 Atrial fibrillation (HCC) [I48.91] 03/29/2022 Benign essential HTN [I10] 03/29/2022 DM type 2 (diabetes mellitus, type 2) (HCC) [E1*03/29/2022 Constipation [K59.00] 04/02/2022 Encounter Status:Closed by FRANCIS MCMANUS on 07/29/22 [facility] Jose Cruz 06-16-2022 [facility] Telephone (NE50MN) SAEED SARABIA ([id number]) 1940 F Date Time Provider Department 06/16/22 JUICE SEARS NE50MN During your visit today, we recorded the following information about you: Janice Thomas 06/16/2022 3:15 PM Signed Form received: From (agency / facility / parent): [facility] door person (if given): none given Phone #: [phone] Fax # : [phone] Email: Information requested: Discharge Physician Orders (Devero) Patient of Dr. Renu Mcmanus RN 06/16/2022 3:30 PM Signed Paperwork uploaded via [employer] and sent to Luis Adam for review and signature. Copies faxed to [facility] at [phone] per request and onbase. Francis Mcmanus RN Allergies As of Date: 06/16/2022 (No Known Allergies) Date Reviewed: 05/17/2022 Reviewed by: Paige Andrews MA - Fully Assessed Reason for Visit: Forms [913] Other [Other] Cmt: Discharge Physician Orders Prescriptions as of 06/16/2022 - metFORMIN (GLUCOPHAGE) 500 mg tablet Take 1 tablet by mouth twice daily with meals. - apixaban (ELIQUIS) 5 mg tab(s) Take 1 tablet by mouth twice daily. - acetaminophen (TYLENOL) 325 mg tablet 2 tablets by ORAL/FEEDING TUBE route every 4 hours as needed for pain or fever (specify). - dextrose (TRUEPLUS) 15 gram/32 mL oral gel Take 32 mL by mouth as needed. - docusate sodium (COLACE) 100 mg capsule Take 1 capsule by mouth twice daily. - lidocaine (SALONPAS) 4 % patch Apply 2 Patches as directed once daily. - methocarbamol (ROBAXIN) 750 mg tablet Take 1 tablet by mouth three times daily as needed. - bumetanide (BUMEX) 1 mg tablet Take 0.5-1 mg by mouth once daily as needed (edema). - gabapentin (NEURONTIN) 100 mg capsule Take 100 mg by mouth three times daily. - ezetimibe (ZETIA) 10 mg tablet Take 10 mg by mouth once daily. - lisinopril (ZESTRIL, PRINIVIL) 5 mg tablet Take 5 mg by mouth once daily. - metoprolol succinate ER (TOPROL XL) 100 mg Take 100 mg by mouth once daily. - rosuvastatin (CRESTOR) 5 mg tablet Take 5 mg by mouth once daily. - glipiZIDE (GLUCOTROL) 5 mg tablet Take 5 mg by mouth twice daily before meals. - spironolactone (ALDACTONE) 25 mg tablet Take 12.5 mg by mouth once daily. Problem List As Of Date 06/16/2022 Noted Resolved Spinal stenosis [M48.00] 03/28/2022 Right leg weakness [R29.898] 03/29/2022 HLD (hyperlipidemia) [E78.5] 03/29/2022 Foot drop, right foot [M21.371] 03/29/2022 Atrial fibrillation (HCC) [I48.91] 03/29/2022 Benign essential HTN [I10] 03/29/2022 DM type 2 (diabetes mellitus, type 2) (HCC) [E1*03/29/2022 Constipation [K59.00] 04/02/2022 Encounter Status:Closed by FRANCIS MCMANUS on 06/16/22 [facility] Jose Cruz 05-25-2022 [facility] Telephone (NE50MN) SAEED SARABIA ([id number]) 1940 F Date Time Provider Department 05/25/22 JUICE SEARS NE50MN During your visit today, we recorded the following information about you: Rosie Kwon Adm Asst 05/25/2022 12:40 PM Signed General call : Full name of person calling: Trish Anna from OT Relationship to patient: OT Phone # : [phone] Reason for call: Caller reporting that the patient was discharged from OT and transferred to Outpatient Therapy 05/23/22. Patient of Dr. Renu Mcmanus RN 05/25/2022 12:45 PM Signed Noted. Francis Mcmanus RN Allergies As of Date: 05/25/2022 (No Known Allergies) Date Reviewed: 05/17/2022 Reviewed by: Paige Andrews MA - Fully Assessed Reason for Visit: Other [3945] Cmt: OT Discharge Notification Prescriptions as of 05/25/2022 - metFORMIN (GLUCOPHAGE) 500 mg tablet Take 1 tablet by mouth twice daily with meals. - apixaban (ELIQUIS) 5 mg tab(s) Take 1 tablet by mouth twice daily. - acetaminophen (TYLENOL) 325 mg tablet 2 tablets by ORAL/FEEDING TUBE route every 4 hours as needed for pain or fever (specify). - dextrose (TRUEPLUS) 15 gram/32 mL oral gel Take 32 mL by mouth as needed. - docusate sodium (COLACE) 100 mg capsule Take 1 capsule by mouth twice daily. - lidocaine (SALONPAS) 4 % patch Apply 2 Patches as directed once daily. - methocarbamol (ROBAXIN) 750 mg tablet Take 1 tablet by mouth three times daily as needed. - bumetanide (BUMEX) 1 mg tablet Take 0.5-1 mg by mouth once daily as needed (edema). - gabapentin (NEURONTIN) 100 mg capsule Take 100 mg by mouth three times daily. - ezetimibe (ZETIA) 10 mg tablet Take 10 mg by mouth once daily. - lisinopril (ZESTRIL, PRINIVIL) 5 mg tablet Take 5 mg by mouth once daily. - metoprolol succinate ER (TOPROL XL) 100 mg Take 100 mg by mouth once daily. - rosuvastatin (CRESTOR) 5 mg tablet Take 5 mg by mouth once daily. - glipiZIDE (GLUCOTROL) 5 mg tablet Take 5 mg by mouth twice daily before meals. - spironolactone (ALDACTONE) 25 mg tablet Take 12.5 mg by mouth once daily. Problem List As Of Date 05/25/2022 Noted Resolved Spinal stenosis [M48.00] 03/28/2022 Right leg weakness [R29.898] 03/29/2022 HLD (hyperlipidemia) [E78.5] 03/29/2022 Foot drop, right foot [M21.371] 03/29/2022 Atrial fibrillation (HCC) [I48.91] 03/29/2022 Benign essential HTN [I10] 03/29/2022 DM type 2 (diabetes mellitus, type 2) (HCC) [E1*03/29/2022 Constipation [K59.00] 04/02/2022 Encounter Status:Closed by FRANCIS MCMANUS on 05/25/22 [facility] Telephone (NE50MN) CORNELLSAEED Nash ([id number]) 1940 F Date Time Provider Department 05/25/22 JUICE SEARS NE50MN During your visit today, we recorded the following information about you: Rosie Kwon Adm Asst 05/25/2022 4:27 PM Signed Form received: From (agency / facility / parent): [facility] door person (if given): none given Phone #: [phone] Fax # : [phone] Email: Information requested: Physician Orders (Radha) Patient of Dr. Renu Mcmanus RN 05/26/2022 8:04 AM Signed Forms uploaded via [employer]. Sent to Dr. Sears for review and signature. Copies faxed to [facility] at number provided and onbase. Francis Mcmanus RN Allergies As of Date: 05/25/2022 (No Known Allergies) Date Reviewed: 05/17/2022 Reviewed by: Paige Andrews MA - Fully Assessed Reason for Visit: Forms [003] Cmt: Physician Orders (Radha) - [facility] Prescriptions as of 05/26/2022 - metFORMIN (GLUCOPHAGE) 500 mg tablet Take 1 tablet by mouth twice daily with meals. - apixaban (ELIQUIS) 5 mg tab(s) Take 1 tablet by mouth twice daily. - acetaminophen (TYLENOL) 325 mg tablet 2 tablets by ORAL/FEEDING TUBE route every 4 hours as needed for pain or fever (specify). - dextrose (TRUEPLUS) 15 gram/32 mL oral gel Take 32 mL by mouth as needed. - docusate sodium (COLACE) 100 mg capsule Take 1 capsule by mouth twice daily. - lidocaine (SALONPAS) 4 % patch Apply 2 Patches as directed once daily. - methocarbamol (ROBAXIN) 750 mg tablet Take 1 tablet by mouth three times daily as needed. - bumetanide (BUMEX) 1 mg tablet Take 0.5-1 mg by mouth once daily as needed (edema). - gabapentin (NEURONTIN) 100 mg capsule Take 100 mg by mouth three times daily. - ezetimibe (ZETIA) 10 mg tablet Take 10 mg by mouth once daily. - lisinopril (ZESTRIL, PRINIVIL) 5 mg tablet Take 5 mg by mouth once daily. - metoprolol succinate ER (TOPROL XL) 100 mg Take 100 mg by mouth once daily. - rosuvastatin (CRESTOR) 5 mg tablet Take 5 mg by mouth once daily. - glipiZIDE (GLUCOTROL) 5 mg tablet Take 5 mg by mouth twice daily before meals. - spironolactone (ALDACTONE) 25 mg tablet Take 12.5 mg by mouth once daily. Problem List As Of Date 05/25/2022 Noted Resolved Spinal stenosis [M48.00] 03/28/2022 Right leg weakness [R29.898] 03/29/2022 HLD (hyperlipidemia) [E78.5] 03/29/2022 Foot drop, right foot [M21.371] 03/29/2022 Atrial fibrillation (HCC) [I48.91] 03/29/2022 Benign essential HTN [I10] 03/29/2022 DM type 2 (diabetes mellitus, type 2) (HCC) [E1*03/29/2022 Constipation [K59.00] 04/02/2022 Encounter Status:[facility] by [facility] Telephone (NE50MN) SAEED SARABIA ([id number]) 1940 F Date Time Provider Department 05/24/22 JUICE SEARS NE50MN During your visit today, we recorded the following information about you: Rosie Cher Givens Asst 05/24/2022 10:06 AM Signed Form received: From (agency / facility / parent): [facility] door person (if given): Ernesto Villareal PT Phone #: [phone] Fax # : [phone] Email: Information requested: Initial Examination Patient of Dr. Renu Mcmanus RN 05/24/2022 4:25 PM Signed Paperwork uploaded via [employer]. Sent to Dr. Sears for review and signature. Copies faxed to [facility] [phone] and onbase. Francis Mcmanus RN Allergies As of Date: 05/24/2022 (No Known Allergies) Date Reviewed: 05/17/2022 Reviewed by: Paige Andrews MA - Fully Assessed Reason for Visit: Forms [813] Cmt: [facility] - Initial Examinations Prescriptions as of 05/24/2022 - metFORMIN (GLUCOPHAGE) 500 mg tablet Take 1 tablet by mouth twice daily with meals. - apixaban (ELIQUIS) 5 mg tab(s) Take 1 tablet by mouth twice daily. - acetaminophen (TYLENOL) 325 mg tablet 2 tablets by ORAL/FEEDING TUBE route every 4 hours as needed for pain or fever (specify). - dextrose (TRUEPLUS) 15 gram/32 mL oral gel Take 32 mL by mouth as needed. - docusate sodium (COLACE) 100 mg capsule Take 1 capsule by mouth twice daily. - lidocaine (SALONPAS) 4 % patch Apply 2 Patches as directed once daily. - methocarbamol (ROBAXIN) 750 mg tablet Take 1 tablet by mouth three times daily as needed. - bumetanide (BUMEX) 1 mg tablet Take 0.5-1 mg by mouth once daily as needed (edema). - gabapentin (NEURONTIN) 100 mg capsule Take 100 mg by mouth three times daily. - ezetimibe (ZETIA) 10 mg tablet Take 10 mg by mouth once daily. - lisinopril (ZESTRIL, PRINIVIL) 5 mg tablet Take 5 mg by mouth once daily. - metoprolol succinate ER (TOPROL XL) 100 mg Take 100 mg by mouth once daily. - rosuvastatin (CRESTOR) 5 mg tablet Take 5 mg by mouth once daily. - glipiZIDE (GLUCOTROL) 5 mg tablet Take 5 mg by mouth twice daily before meals. - spironolactone (ALDACTONE) 25 mg tablet Take 12.5 mg by mouth once daily. Problem List As Of Date 05/24/2022 Noted Resolved Spinal stenosis [M48.00] 03/28/2022 Right leg weakness [R29.898] 03/29/2022 HLD (hyperlipidemia) [E78.5] 03/29/2022 Foot drop, right foot [M21.371] 03/29/2022 Atrial fibrillation (HCC) [I48.91] 03/29/2022 Benign essential HTN [I10] 03/29/2022 DM type 2 (diabetes mellitus, type 2) (HCC) [E1*03/29/2022 Constipation [K59.00] 04/02/2022 Encounter Status:Closed by FRANCIS MCMANUS on 05/24/22 [facility] 05-17-2022 [facility] Office Visit (DOROTHY) SAEED SARABIA ([id number]) 1940 F Date Time Provider Department 05/17/22 2:00 PM JUICE SEARS During your visit today, we recorded the following information about you: Juice Sears MD 05/17/2022 3:46 PM Signed SPINE SURGERY FOLLOW UP SERVICE DATE: 05/17/2022 SURGERY DATE: 03/31/22 CC: 6 week post op appt HPI: Saeed Sarabia is a 81 yo F with history of cardiac stent (on Eliquis) who underwent a L2-L5 laminectomy performed by Dr. Sears on 03/31/22 and is presenting today for 6 week post op appointment. She initially presented with significant right foot drop and imaging revealed lumbar spinal stenosis. Patient tolerated the procedure well and was discharged on 04/07/22. Today, she endorses some mild low back soreness, denies pain. Endorses continued lower extremity weakness and right foot paresthesias that occur with exercise, however she feels the right foot drop has significantly improved. She ambulates with the assistance of a walker around the house. She denies bowel or bladder incontinence, saddle anesthesia, upper extremity symptoms, and lower extremity radiculopathy. She is currently participating in physical therapy 2 x week with home health and feels it is going well. ANTIPLATELET OR ANTICOAGULATION STATUS: resumed Eliquis on 04/10/22 PHYSICAL EXAM: GENERAL APPEARANCE: Well nourished, well developed, and no apparent distress. NEURO PSYCH: Patient oriented to person, place, and time. Mood pleasant. Benign affect. MUSCULOSKELETAL: VISUAL INSPECTION CERVICAL: WNL THORACIC: WNL LUMBAR: WNL, well healed surgical incision without swelling, drainage, or wound dehiscence MOTOR: strength is 5/5 throughout all muscle groups in the upper extremities bilaterally, strength is 4/5 in right hip flexor, 4/5 right quad, 2/5 right dorsiflexor, 2/5 EHL and 4/5 plantarflexor, Strength is 5/5 throughout all muscle groups in the left lower extremity SENSORY: Normal sensory exam GAIT: slow and slightly unsteady REFLEXES: +2 to bilateral U/L extremities. ASSESSMENT/PLAN Saeed Sarabia is a 81 yo F here today for 6 week post operative follow up s/p L2-[address] Sears on 03/31/22. She initially presented with right foot drop and imaging revealed spinal stenosis. Patient tolerated the procedure well and was discharged on 04/07/22. Patient was given a script for outpatient physical therapy and she can follow up with Dr. Sears in 3 months to check on her progress. Luiz Adam PA-C May 17, 2022 1:04 PM SIGNATURE: Juice Sears MD PATIENT NAME: Saeed Sarabia DATE: May 17, 2022 TIME: 11:12 AM PAGER: Postop visit s/p lumbar laminectomy for lumbar radicular syndrome incision good R foot drop improving walking with walker Should start OP PT Juice Sears MD Referring Provider: FANNIE BLANDON [[id number]] Allergies As of Date: 05/17/2022 (No Known Allergies) Date Reviewed: 05/17/2022 Reviewed by: Paige Andrews MA - Fully Assessed Reason for Visit: Post-Op Visit [1236] Primary Visit Diagnosis:Spinal stenosis of lumbar region, unspecified whether neurogenic claudication present [M48.061] Other Visit Diagnosis:Right leg weakness [R29.898] Order(s):CONSULT TO PHYSICAL THERAPY (OUTSIDE) [[id number]] Order #: [id number]: 1 Prescriptions as of 05/17/2022 - metFORMIN (GLUCOPHAGE) 500 mg tablet Take 1 tablet by mouth twice daily with meals. - apixaban (ELIQUIS) 5 mg tab(s) Take 1 tablet by mouth twice daily. - acetaminophen (TYLENOL) 325 mg tablet 2 tablets by ORAL/FEEDING TUBE route every 4 hours as needed for pain or fever (specify). - dextrose (TRUEPLUS) 15 gram/32 mL oral gel Take 32 mL by mouth as needed. - docusate sodium (COLACE) 100 mg capsule Take 1 capsule by mouth twice daily. - lidocaine (SALONPAS) 4 % patch Apply 2 Patches as directed once daily. - methocarbamol (ROBAXIN) 750 mg tablet Take 1 tablet by mouth three times daily as needed. - bumetanide (BUMEX) 1 mg tablet Take 0.5-1 mg by mouth once daily as needed (edema). - gabapentin (NEURONTIN) 100 mg capsule Take 100 mg by mouth three times daily. - ezetimibe (ZETIA) 10 mg tablet Take 10 mg by mouth once daily. - lisinopril (ZESTRIL, PRINIVIL) 5 mg tablet Take 5 mg by mouth once daily. - metoprolol succinate ER (TOPROL XL) 100 mg Take 100 mg by mouth once daily. - rosuvastatin (CRESTOR) 5 mg tablet Take 5 mg by mouth once daily. - glipiZIDE (GLUCOTROL) 5 mg tablet Take 5 mg by mouth twice daily before meals. - spironolactone (ALDACTONE) 25 mg tablet Take 12.5 mg by mouth once daily. Problem List As Of Date 05/17/2022 Noted Resolved Spinal stenosis [M48.00] 03/28/2022 Right leg weakness [R29.898] 03/29/2022 HLD (hyperlipidemia) [E78.5] 03/29/2022 Foot drop, right maki (more content not included)... [facility]NE50MN[facility] CORNELLSAEED ([id number]) 1940 F Date Time Provider Department 05/12/22 JUICE SEARS NE50MN During your visit today, we recorded the following information about you: Mojgan Leger 05/12/2022 11:45 AM Signed Form received: From (agency / facility / parent): [facility] door person (if given): Phone #: [phone] Fax # : [phone] Email: Information requested: Physicians orders Patient of Dr. Sears Forwarded to nurse. Francis Mcmanus RN 05/12/2022 12:31 PM Signed Forms uploaded via [employer]. Sent to Dr. Sears for review and signature. Copies faxed to [facility] at [phone] and onbase. Francis Mcmanus RN Allergies As of Date: 05/12/2022 (No Known Allergies) Date Reviewed: 04/07/2022 Reviewed by: Allie Hoover RN - Fully Assessed Reason for Visit: General [Other] Cmt: [facility] Prescriptions as of 05/12/2022 - metFORMIN (GLUCOPHAGE) 500 mg tablet Take 1 tablet by mouth twice daily with meals. - apixaban (ELIQUIS) 5 mg tab(s) Take 1 tablet by mouth twice daily. - acetaminophen (TYLENOL) 325 mg tablet 2 tablets by ORAL/FEEDING TUBE route every 4 hours as needed for pain or fever (specify). - dextrose (TRUEPLUS) 15 gram/32 mL oral gel Take 32 mL by mouth as needed. - docusate sodium (COLACE) 100 mg capsule Take 1 capsule by mouth twice daily. - lidocaine (SALONPAS) 4 % patch Apply 2 Patches as directed once daily. - methocarbamol (ROBAXIN) 750 mg tablet Take 1 tablet by mouth three times daily as needed. - bumetanide (BUMEX) 1 mg tablet Take 0.5-1 mg by mouth once daily as needed (edema). - gabapentin (NEURONTIN) 100 mg capsule Take 100 mg by mouth three times daily. - ezetimibe (ZETIA) 10 mg tablet Take 10 mg by mouth once daily. - lisinopril (ZESTRIL, PRINIVIL) 5 mg tablet Take 5 mg by mouth once daily. - metoprolol succinate ER (TOPROL XL) 100 mg Take 100 mg by mouth once daily. - rosuvastatin (CRESTOR) 5 mg tablet Take 5 mg by mouth once daily. - glipiZIDE (GLUCOTROL) 5 mg tablet Take 5 mg by mouth twice daily before meals. - spironolactone (ALDACTONE) 25 mg tablet Take 12.5 mg by mouth once daily. Problem List As Of Date 05/12/2022 Noted Resolved Spinal stenosis [M48.00] 03/28/2022 Right leg weakness [R29.898] 03/29/2022 HLD (hyperlipidemia) [E78.5] 03/29/2022 Foot drop, right foot [M21.371] 03/29/2022 Atrial fibrillation (HCC) [I48.91] 03/29/2022 Benign essential HTN [I10] 03/29/2022 DM type 2 (diabetes mellitus, type 2) (HCC) [E1*03/29/2022 Constipation [K59.00] 04/02/2022 Encounter Status:Closed by FRANCIS [facility]ANUS [facility]12[facility] SAEED SARABIA ([id number]) 1940 F Date Time Provider Department 05/06/22 JUICE SEARS NE50MN During your visit today, we recorded the following information about you: Janice Thomas 05/06/2022 4:33 PM Signed SURGERY respiratory therapy aide Calling: [facility] Is Patient Requesting Appointment?: No Is Patient Calling due to Pain?: No Is Patient Requesting Medication?: No General Concerns: Plan of Care 04/17/22 - 06/15/22 Patient of: Dr. Renu Mcmanus RN 05/06/2022 4:57 PM Signed POC paperwork uploaded to [employer] and sent to Dr. Sears for review and signature. Copies faxed to [facility] at [phone] and onbase. Francis Mcmanus RN Allergies As of Date: 05/06/2022 (No Known Allergies) Date Reviewed: 04/07/2022 Reviewed by: Allie Hoover RN - Fully Assessed Reason for Visit: Other [Other] Cmt: [facility] Plan of Care 04/17/22 - 06/15/22 Prescriptions as of 05/06/2022 - metFORMIN (GLUCOPHAGE) 500 mg tablet Take 1 tablet by mouth twice daily with meals. - apixaban (ELIQUIS) 5 mg tab(s) Take 1 tablet by mouth twice daily. - acetaminophen (TYLENOL) 325 mg tablet 2 tablets by ORAL/FEEDING TUBE route every 4 hours as needed for pain or fever (specify). - dextrose (TRUEPLUS) 15 gram/32 mL oral gel Take 32 mL by mouth as needed. - docusate sodium (COLACE) 100 mg capsule Take 1 capsule by mouth twice daily. - lidocaine (SALONPAS) 4 % patch Apply 2 Patches as directed once daily. - methocarbamol (ROBAXIN) 750 mg tablet Take 1 tablet by mouth three times daily as needed. - bumetanide (BUMEX) 1 mg tablet Take 0.5-1 mg by mouth once daily as needed (edema). - gabapentin (NEURONTIN) 100 mg capsule Take 100 mg by mouth three times daily. - ezetimibe (ZETIA) 10 mg tablet Take 10 mg by mouth once daily. - lisinopril (ZESTRIL, PRINIVIL) 5 mg tablet Take 5 mg by mouth once daily. - metoprolol succinate ER (TOPROL XL) 100 mg Take 100 mg by mouth once daily. - rosuvastatin (CRESTOR) 5 mg tablet Take 5 mg by mouth once daily. - glipiZIDE (GLUCOTROL) 5 mg tablet Take 5 mg by mouth twice daily before meals. - spironolactone (ALDACTONE) 25 mg tablet Take 12.5 mg by mouth once daily. Problem List As Of Date 05/06/2022 Noted Resolved Spinal stenosis [M48.00] 03/28/2022 Right leg weakness [R29.898] 03/29/2022 HLD (hyperlipidemia) [E78.5] 03/29/2022 Foot drop, right foot [M21.371] 03/29/2022 Atrial fibrillation (HCC) [I48.91] 03/29/2022 Benign essential HTN [I10] 03/29/2022 DM type 2 (diabetes mellitus, type 2) (HCC) [E1*03/29/2022 Constipation [K59.00] 04/02/2022 Encounter Status:Closed by FRANCIS MCMANUS on [facility]06/[facility] (NE50MN) SAEED SARABIA ([id number]) 1940 F Date Time Provider Department 04/29/22 JUICE SEARS NE50MN During your visit today, we recorded the following information about you: KYLAH Rivera 04/29/2022 12:18 PM Signed Form received: From (agency / facility / parent): [facility] door person (if given): Mojgan Phone #: [phone] Fax # : ATTN Mojgan [phone] Email: Information requested: Plan of care Patient of Dr. Renu Mcmanus RN 04/29/2022 12:50 PM Signed Spoke to Mojgan from [facility] regarding plan of care - explained that Dr. Platt will not typically follow patients for extended recovery past the post surgical period. Saeed has a follow up appointment 05/17 - will discuss at this time if her home health plan of care needs to be transitioned to a different practitioner. Forms uploaded to [employer] and sent to Dr. Sears for review and signature. Copies faxed to [facility] [phone] and onbase. Francis Mcmanus RN Allergies As of Date: 04/29/2022 (No Known Allergies) Date Reviewed: 04/07/2022 Reviewed by: lAlie Hoover RN - Fully Assessed Reason for Visit: Forms [913] Prescriptions as of 04/29/2022 - metFORMIN (GLUCOPHAGE) 500 mg tablet Take 1 tablet by mouth twice daily with meals. - apixaban (ELIQUIS) 5 mg tab(s) Take 1 tablet by mouth twice daily. - acetaminophen (TYLENOL) 325 mg tablet 2 tablets by ORAL/FEEDING TUBE route every 4 hours as needed for pain or fever (specify). - dextrose (TRUEPLUS) 15 gram/32 mL oral gel Take 32 mL by mouth as needed. - docusate sodium (COLACE) 100 mg capsule Take 1 capsule by mouth twice daily. - lidocaine (SALONPAS) 4 % patch Apply 2 Patches as directed once daily. - methocarbamol (ROBAXIN) 750 mg tablet Take 1 tablet by mouth three times daily as needed. - bumetanide (BUMEX) 1 mg tablet Take 0.5-1 mg by mouth once daily as needed (edema). - gabapentin (NEURONTIN) 100 mg capsule Take 100 mg by mouth three times daily. - ezetimibe (ZETIA) 10 mg tablet Take 10 mg by mouth once daily. - lisinopril (ZESTRIL, PRINIVIL) 5 mg tablet Take 5 mg by mouth once daily. - metoprolol succinate ER (TOPROL XL) 100 mg Take 100 mg by mouth once daily. - rosuvastatin (CRESTOR) 5 mg tablet Take 5 mg by mouth once daily. - glipiZIDE (GLUCOTROL) 5 mg tablet Take 5 mg by mouth twice daily before meals. - spironolactone (ALDACTONE) 25 mg tablet Take 12.5 mg by mouth once daily. Problem List As Of Date 04/29/2022 Noted Resolved Spinal stenosis [M48.00] 03/28/2022 Right leg weakness [R29.898] 03/29/2022 HLD (hyperlipidemia) [E78.5] 03/29/2022 Foot drop, right foot [M21.371] 03/29/2022 Atrial fibrillation (HCC) [I48.91] 03/29/2022 Benign essential HTN [I10] 03/29/2022 DM type 2 (diabetes mellitus, type 2) (HCC) [E1*03/29/2022 Constipation [K59.00] 04/02/2022 Encounter Status:Closed by FRANCIS MCMANUS on 04/29/22 [facility] SAEED SARABIA ([id number]) 1940 F Date Time Provider Department 04/25/22 JUICE SEARS NE50MN During your visit today, we recorded the following information about you: KYLAH Rivera 04/25/2022 3:00 PM Signed Form received: From (agency / facility / parent): [facility] door person (if given): Phone #: [phone] Fax # : [phone] Email: Information requested: Plan of care Patient of Dr. Renu Mcmanus RN 04/25/2022 3:22 PM Signed Forms received. Uploaded and sent to Dr. Sears for review and signature via [employer]. Copies sent to [facility] via fax [phone] and onbase. Francis Mcmanus RN Allergies As of Date: 04/25/2022 (No Known Allergies) Date Reviewed: 04/07/2022 Reviewed by: Allie Hoover RN - Fully Assessed Reason for Visit: Forms [913] Cmt: [facility] Prescriptions as of 04/25/2022 - metFORMIN (GLUCOPHAGE) 500 mg tablet Take 1 tablet by mouth twice daily with meals. - apixaban (ELIQUIS) 5 mg tab(s) Take 1 tablet by mouth twice daily. - acetaminophen (TYLENOL) 325 mg tablet 2 tablets by ORAL/FEEDING TUBE route every 4 hours as needed for pain or fever (specify). - dextrose (TRUEPLUS) 15 gram/32 mL oral gel Take 32 mL by mouth as needed. - docusate sodium (COLACE) 100 mg capsule Take 1 capsule by mouth twice daily. - lidocaine (SALONPAS) 4 % patch Apply 2 Patches as directed once daily. - methocarbamol (ROBAXIN) 750 mg tablet Take 1 tablet by mouth three times daily as needed. - bumetanide (BUMEX) 1 mg tablet Take 0.5-1 mg by mouth once daily as needed (edema). - gabapentin (NEURONTIN) 100 mg capsule Take 100 mg by mouth three times daily. - ezetimibe (ZETIA) 10 mg tablet Take 10 mg by mouth once daily. - lisinopril (ZESTRIL, PRINIVIL) 5 mg tablet Take 5 mg by mouth once daily. - metoprolol succinate ER (TOPROL XL) 100 mg Take 100 mg by mouth once daily. - rosuvastatin (CRESTOR) 5 mg tablet Take 5 mg by mouth once daily. - glipiZIDE (GLUCOTROL) 5 mg tablet Take 5 mg by mouth twice daily before meals. - spironolactone (ALDACTONE) 25 mg tablet Take 12.5 mg by mouth once daily. Problem List As Of Date 04/25/2022 Noted Resolved Spinal stenosis [M48.00] 03/28/2022 Right leg weakness [R29.898] 03/29/2022 HLD (hyperlipidemia) [E78.5] 03/29/2022 Foot drop, right foot [M21.371] 03/29/2022 Atrial fibrillation (HCC) [I48.91] 03/29/2022 Benign essential HTN [I10] 03/29/2022 DM type 2 (diabetes mellitus, type 2) (HCC) [E1*03/29/2022 Constipation [K59.00] 04/02/2022 Encounter Status:Closed by FRANCIS MCMANUS on 04/25/22 [facility] 04-22-2022 [facility] Telephone (NE50MN) SAEED SARABIA ([id number]) 1940 F Date Time Provider Department 04/22/22 JUICE SEARS NE50MN During your visit today, we recorded the following information about you: Ana MONTERO 04/22/2022 12:19 PM Signed Form received: From (agency / facility / parent): [facility] door person (if given): Saeed Sarabia Phone #: [phone] (home) Fax # : [phone] Email: Information requested: therapy evaluation and care plan Patient of Dr. renu Mcmanus RN 04/22/2022 12:43 PM Signed Forms received. Uploaded to [employer] and sent to Dr. Sears for review and signature. Copies sent to [facility] at fax [phone] and onbase. Francis Mcmanus RN Allergies As of Date: 04/22/2022 (No Known Allergies) Date Reviewed: 04/07/2022 Reviewed by: Allie Hoover RN - Fully Assessed Reason for Visit: Forms [913] Cmt: [facility] Prescriptions as of 04/22/2022 - metFORMIN (GLUCOPHAGE) 500 mg tablet Take 1 tablet by mouth twice daily with meals. - apixaban (ELIQUIS) 5 mg tab(s) Take 1 tablet by mouth twice daily. - acetaminophen (TYLENOL) 325 mg tablet 2 tablets by ORAL/FEEDING TUBE route every 4 hours as needed for pain or fever (specify). - dextrose (TRUEPLUS) 15 gram/32 mL oral gel Take 32 mL by mouth as needed. - docusate sodium (COLACE) 100 mg capsule Take 1 capsule by mouth twice daily. - lidocaine (SALONPAS) 4 % patch Apply 2 Patches as directed once daily. - methocarbamol (ROBAXIN) 750 mg tablet Take 1 tablet by mouth three times daily as needed. - bumetanide (BUMEX) 1 mg tablet Take 0.5-1 mg by mouth once daily as needed (edema). - gabapentin (NEURONTIN) 100 mg capsule Take 100 mg by mouth three times daily. - ezetimibe (ZETIA) 10 mg tablet Take 10 mg by mouth once daily. - lisinopril (ZESTRIL, PRINIVIL) 5 mg tablet Take 5 mg by mouth once daily. - metoprolol succinate ER (TOPROL XL) 100 mg Take 100 mg by mouth once daily. - rosuvastatin (CRESTOR) 5 mg tablet Take 5 mg by mouth once daily. - glipiZIDE (GLUCOTROL) 5 mg tablet Take 5 mg by mouth twice daily before meals. - spironolactone (ALDACTONE) 25 mg tablet Take 12.5 mg by mouth once daily. Problem List As Of Date 04/22/2022 Noted Resolved Spinal stenosis [M48.00] 03/28/2022 Right leg weakness [R29.898] 03/29/2022 HLD (hyperlipidemia) [E78.5] 03/29/2022 Foot drop, right foot [M21.371] 03/29/2022 Atrial fibrillation (HCC) [I48.91] 03/29/2022 Benign essential HTN [I10] 03/29/2022 DM type 2 (diabetes mellitus, type 2) (HCC) [E1*03/29/2022 Constipation [K59.00] 04/02/2022 Encounter Status:Closed by FRANCIS MCMANUS on 04/22/22 [facility] [place] 04-15-2022 [place] Telephone (NE50MN) SAEED SARABIA ([id number]) 1940 F Date Time Provider Department 04/15/22 JUICE SEARS NE50MN During your visit today, we recorded the following information about you: Janice Alva Sec 04/15/2022 11:07 AM Signed SURGERY respiratory therapy aide Calling: Debbie Miller RNdebt management counselor team leader [facility] direct line Is Patient Requesting Appointment?: No Is Patient Calling due to Pain?: No Is Patient Requesting Medication?: No General Concerns: Requesting orders for home health PT and nurse to check on patient in the home. Patient of: Dr. Renu Mcmanus RN 04/15/2022 11:39 AM Signed Patient s/p 03/31/2022: L2-L5 laminectomy with Dr. Sears. Home health agency is requesting PT and home health order - per epic review, no orders seen in chart. Will forward to BLAYNE for review. ELFEGO Miller APRN.LEXI 04/15/2022 12:02 PM Signed Orders placed Dimas Ferreira APRN.[employer] Francis Mcmanus RN 04/15/2022 12:21 PM Signed Called and left VM to ELFEGO Elliott - requesting fax number or email to send PT/home health orders. ELFEGO Miller RN 04/18/2022 2:45 PM Signed Called and left vm with ELFEGO Elliott - requesting fax or email to provide requested orders. ELFEGO Miller Sec 04/19/2022 9:51 AM Signed Cris Leger RN at [facility] [phone], reports start of care for skilled nurse, PT, OT, ST and bath aide as of 04/16/22. No callback is necessary. Mojgan Leger 04/19/2022 12:43 PM Signed Can fax orders to [phone] to Debbie Miller. Francis Mcmanus RN 04/20/2022 4:33 PM Signed PT and home care orders faxed to listed contact and number below. Allergies As of Date: 04/15/2022 (No Known Allergies) Date Reviewed: 04/07/2022 Reviewed by: Allie Hoover RN - Fully Assessed Reason for Visit: Other [Other] Cmt: home health orders requested Primary Visit Diagnosis:Spinal stenosis of lumbar region, unspecified whether neurogenic claudication present [M48.061] Order(s):[facility] [[id number]] Order #: [id number]: 1 CONSULT TO PHYSICAL THERAPY (OUTSIDE) [[id number]] Order #: [id number]: 1 Prescriptions as of 04/20/2022 - metFORMIN (GLUCOPHAGE) 500 mg tablet Take 1 tablet by mouth twice daily with meals. - apixaban (ELIQUIS) 5 mg tab(s) Take 1 tablet by mouth twice daily. - acetaminophen (TYLENOL) 325 mg tablet 2 tablets by ORAL/FEEDING TUBE route every 4 hours as needed for pain or fever (specify). - dextrose (TRUEPLUS) 15 gram/32 mL oral gel Take 32 mL by mouth as needed. - docusate sodium (COLACE) 100 mg capsule Take 1 capsule by mouth twice daily. - lidocaine (SALONPAS) 4 % patch Apply 2 Patches as directed once daily. - methocarbamol (ROBAXIN) 750 mg tablet Take 1 tablet by mouth three times daily as needed. - bumetanide (BUMEX) 1 mg tablet Take 0.5-1 mg by mouth once daily as needed (edema). - gabapentin (NEURONTIN) 100 mg capsule Take 100 mg by mouth three times daily. - ezetimibe (ZETIA) 10 mg tablet Take 10 mg by mouth once daily. - lisinopril (ZESTRIL, PRINIVIL) 5 mg tablet Take 5 mg by mouth once daily. - metoprolol succinate ER (TOPROL XL) 100 mg Take 100 mg by mouth once daily. - rosuvastatin (CRESTOR) 5 mg tablet Take 5 mg by mouth once daily. - glipiZIDE (GLUCOTROL) 5 mg tablet Take 5 mg by mouth twice daily before meals. - spironolactone (ALDACTONE) 25 mg tablet Take 12.5 mg by mouth once daily. Problem List As Of Date 04/15/2022 Noted Resolved Spinal stenosis [M48.00] 03/28/2022 Right leg weakness [R29.898] 03/29/2022 HLD (hyperlipidemia) [E78.5] 03/29/2022 Foot drop, right foot [M21.371] 03/29/2022 Atrial fibrillation (HCC) [I48.91] 03/29/2022 Benign essential HTN [I10] 03/29/2022 DM type 2 (diabetes mellitus, type 2) (HCC) [E1*03/29/2022 Constipation [K59.00] 04/02/2022 Encounter Status:Closed by FRANCIS MCMANUS on 04/20/22 Normal [facility] Glucose Glucometer (dC) [M ass/Vol]Ordered By: Kingston Gao on 04-15-2022 Glucose [Mass/Vol] 112 mg/dL [facility] Comment on above: Random Glucose Refer ence Range is dependent on time and content of last meal. Glucose of more than 200 mg/dL in a nonstressed, ambulatory subject supports the diagnosis of Diabetes Mellitus. Glucose Poct Glucometerson 0 04-15-2022 Commemt1 Glu2: Cleaned Meter [facility] Comment on above: Result Comment: PERF ORMED BY: [facility] [address] [facility] [place] [address] PATHOLOGIST [employer] GUIDO ELIZALDE M.D. Performed By: #### G LULS #### Point of Care testing , Glucose [Mass/Vol] 112 mg/dL Normal [facility] Comment on above: Result Comment: Okay Glucose Reference Range is dependent on time and content of last meal. Glucose of more than 200 mg/dL in a nonstressed, ambulatory subject supports the diagnosis of Diabetes Mellitus. Performed By: #### G LULS #### Point of Care testing , No Panel InformationOrdered By: Kingston Gao on 04-15-2022 Bedside Glucose Comment Glu2: cleaned meter [facility] Glucose Poct Glucometerson 0 04-14-2022 Commemt1 Glu2: Cleaned Meter [facility] Comment on above: Result Comment: PERF ORMED BY: [facility] [address] [facility] [place] [address] PATHOLOGIST [employer]ICE GUIDO ELIZALDE M.D. Performed By: #### C BC, PT, PTT, CMP #### [facility] [address] Glucose [Mass/Vol] 116 mg/dL Normal [facility] Comment on above: Result Comment: Okay om Glucose Reference Range is dependent on time and content of last meal. Glucose of more than 200 mg/dL in a nonstressed, ambulatory subject supports the diagnosis of Diabetes Mellitus. Performed By: #### C BC, PT, PTT, CMP #### [address] Commemt1 Glu2: Cleaned Meter [facility] Comment on above: Result Comment: PERF ORMED BY: [place] [address] PATHOLOGIST [employer]ICE GUIDO ELIZALDE M.D. Performed By: #### C BC, PT, PTT, CMP #### [address] Glucose [Mass/Vol] 107 mg/dL Normal [facility] Comment on above: Result Comment: Okay om Glucose Reference Range is dependent on time and content of last meal. Glucose of more than 200 mg/dL in a nonstressed, ambulatory subject supports the diagnosis of Diabetes Mellitus. Performed By: #### C BC, PT, PTT, CMP #### [address] Glucose Poct Glucometerson 0 04-13-2022 Commemt1 Glu2: Cleaned Meter [facility] Comment on above: Result Comment: PERF ORMED BY: [place] [address] PATHOLOGIST [employer]ICE GUIDO ELIZALDE M.D. Performed By: #### G LULS #### Point of Care testing , Glucose [Mass/Vol] 83 mg/dL Normal [facility] Comment on above: Result Comment: Okay om Glucose Reference Range is dependent on time and content of last meal. Glucose of more than 200 mg/dL in a nonstressed, ambulatory subject supports the diagnosis of Diabetes Mellitus. Performed By: #### G LULS #### Point of Care testing , Glucose [Mass/Vol] 76 mg/dL Normal [facility] Comment on above: Result Comment: Okay om Glucose Reference Range is dependent on time and content of last meal. Glucose of more than 200 mg/dL in a nonstressed, ambulatory subject supports the diagnosis of Diabetes Mellitus. PERFORMED BY: [place] [address] PATHOLOGIST [employer]ICE GUIDO ELIZALDE M.D. Performed By: #### C BC, PT, PTT, CMP #### [address] Glucose Poct Glucometerson 0 04-12-2022 Commemt1 Glu2: Cleaned Meter [facility] Comment on above: Result Comment: PERF ORMED BY: [place] [address] PATHOLOGIST [employer]ICE GUIDO ELIZALDE M.D. Performed By: #### C BC, PT, PTT, CMP #### [address] Glucose [Mass/Vol] 238 mg/dL Normal [facility] Comment on above: Result Comment: Okay om Glucose Reference Range is dependent on time and content of last meal. Glucose of more than 200 mg/dL in a nonstressed, ambulatory subject supports the diagnosis of Diabetes Mellitus. Performed By: #### C BC, PT, PTT, CMP #### [address] Glucose [Mass/Vol] 86 mg/dL Normal [facility] Comment on above: Result Comment: Okay om Glucose Reference Range is dependent on time and content of last meal. Glucose of more than 200 mg/dL in a nonstressed, ambulatory subject supports the diagnosis of Diabetes Mellitus. PERFORMED BY: [place] [address] PATHOLOGIST [employer]ENTICE GUIDO ELIZALDE M.D. Performed By: #### G LULS #### Point of Care testing , Glucose Poct Glucometerson 0 04-11-2022 Commemt1 Glu2: Cleaned Meter [facility] Comment on above: Result Comment: PERF ORMED BY: [address] [place] [id number] PATHOLOGIST [employer]ICE GUIDO ELIZALDE M.D. Performed By: #### G LULS #### Point of Care testing , Glucose [Mass/Vol] 123 mg/dL Normal [facility] Comment on above: Result Comment: Okay om Glucose Reference Range is dependent on time and content of last meal. Glucose of more than 200 mg/dL in a nonstressed, ambulatory subject supports the diagnosis of Diabetes Mellitus. Performed By: #### G LULS #### Point of Care testing , Glucose [Mass/Vol] 107 mg/dL Normal [facility] Comment on above: Result Comment: Okay om Glucose Reference Range is dependent on time and content of last meal. Glucose of more than 200 mg/dL in a nonstressed, ambulatory subject supports the diagnosis of Diabetes Mellitus. PERFORMED BY: [address] [place] [id number] PATHOLOGIST [employer]ICE GUIDO ELIZALDE M.D. Performed By: #### G LULS #### Point of Care testing , Glucose Poct Glucometerson 0 04-10-2022 Glucose [Mass/Vol] 100 mg/dL Normal [facility] Comment on above: Result Comment: Okay om Glucose Reference Range is dependent on time and content of last meal. Glucose of more than 200 mg/dL in a nonstressed, ambulatory subject supports the diagnosis of Diabetes Mellitus. PERFORMED BY: [address] [place] [address] PATHOLOGIST [employer]ICE GUIDO ELIZALDE M.D. Performed By: #### G LULS #### Point of Care testing , Glucose [Mass/Vol] 99 mg/dL Normal [facility] Comment on above: Result Comment: Okay om Glucose Reference Range is dependent on time and content of last meal. Glucose of more than 200 mg/dL in a nonstressed, ambulatory subject supports the diagnosis of Diabetes Mellitus. PERFORMED BY: [address] [place] [address] PATHOLOGIST [employer]ICE GUIDO ELIZALDE M.D. Performed By: #### C BC, PT, PTT, CMP #### [facility] [address] [place] [id number] [place] A1C with Estimated Average G mehdi 04-09-2022 Glucose [Mass/Vol] 163 mg/dL Normal [facility] Comment on above: Result Comment: PERF ORMED BY: [facility] [address] [place] [id number] PATHOLOGIST [employer]ICE GUIDO ELIZALDE M.D. Performed By: #### G LULS #### Point of Care testing , HbA1c (Bld) [Mass fraction] 7.3 % High 4.3-5.6 [facility] Comment on above: Result Comment: Incr eased risk for diabetes: 5.7 - 6.4 diabetes: >6.4 glycemic control for adults with diabetes: <7.0 Performed By: #### G LULS #### Point of Care testing , Cholesterol [Mass/volume] in Serum or PlasmaOrdered By: Justyn Spann on 04-09-2022 Cholesterol [Mass/Vol] 128 mg/dL 140-[address] [facility] Comment on above: Chol less than 200 m g/dl low risk Chol 201-239 mg/dl borderline risk Chol 240 mg/dl and greater high risk Cholesterol in LDL Calc [Mas s/Vol]Ordered By: Justyn Spann on 04-09-2022 Cholesterol in LDL [Mass/Vol] 68 mg/dL 0-100 [facility] Comment on above: LDL ATP III CLASSIFI CATION LDL less than 100 mg/dL Optimal LDL 100-129 mg/dL Near or above optimal LDL 130-159 mg/dL Borderline high LDL 160-189 mg/dL High LDL greater than 189 mg/dL Very high Cholesterol in VLDL Calc [Ma ss/Vol]Ordered By: Justyn Spann on 04-09-2022 Cholesterol in VLDL [Mass/Vol] 22 mg/dL [facility] Glucose Poct Glucometerson 0 04-09-2022 Commemt1 Glu2: Cleaned Meter Normal [facility] Comment on above: Result Comment: PERF ORMED BY: [facility] [address] [place] [id number] PATHOLOGIST [employer]ICE GUIDO ELIZALDE M.D. Performed By: #### G LULS #### Point of Care testing , Glucose [Mass/Vol] 164 mg/dL Normal [facility] Comment on above: Result Comment: Okay Glucose Reference Range is dependent on time and content of last meal. Glucose of more than 200 mg/dL in a nonstressed, ambulatory subject supports the diagnosis of Diabetes Mellitus. Performed By: #### G LULS #### Point of Care testing , Commemt1 Glu2: Cleaned Meter Normal [facility] Comment on above: Result Comment: PERF ORMED BY: [place] [address] PATHOLOGIST [employer]ICE GUIDO ELIZALDE M.D. Performed By: #### C BC, PT, PTT, CMP #### [facility] [address] Glucose [Mass/Vol] 152 mg/dL Normal [facility] Comment on above: Result Comment: [facility] Glucose Reference Range is dependent on time and content of last meal. Glucose of more than 200 mg/dL in a nonstressed, ambulatory subject supports the diagnosis of Diabetes Mellitus. Performed By: #### C BC, PT, PTT, CMP #### [facility] [address] Glucose mean value [Mass/vol ume] in Blood Estimated from glycated hemoglobinOrdered By: Justyn Spann on 04-09-2022 Average glucose Estimated from glycated hemoglobin (Bld) [Mass/Vol] 163 mg/dL [facility] Hemoglobin A1c percentageOrd ered By: Justyn Spann on 04-09-2022 HbA1c (Bld) [Mass fraction] 7.3 % 4.3-5.6 [facility] Comment on above: Increased risk for d iabetes: 5.7 - 6.4 diabetes: >6.4 glycemic control for adults with diabetes: <7.0 Lipid Panelon 04-09-2022 Cholesterol [Mass/Vol] 128 mg/dL Low 140-[address] [facility] Comment on above: Result Comment: Chol less than 200 mg/dl low risk Chol 201-239 mg/dl borderline risk Chol 240 mg/dl and greater high risk Performed By: #### G LULS #### Point of Care testing , Cholesterol in HDL [Mass/Vol] 37 mg/dL Normal 35-85 [facility] Comment on above: Result Comment: HDL CHOL ATP-III CLASSIFICATION Cardiovascular Risk HDL > or equal to 60 mg/dL LOW HDL < 40 mg/dL HIGH Performed By: #### G LULS #### Point of Care testing , Cholesterol.total/Choles terol in HDL [Mass ratio] 3.5 {ratio} Normal <5.0 [facility] Comment on above: Result Comment: PERF ORMED BY: [facility] [address] [place] [address] PATHOLOGIST [employer]ICE GUIDO ELIZALDE M.D. Performed By: #### G LULS #### Point of Care testing , LDL Cholesterol,Calculated 68 mg/dL Normal 0-100 [facility] Comment on above: Result Comment: LDL ATP III CLASSIFICATION LDL less than 100 mg/dL Optimal LDL 100-129 mg/dL Near or above optimal LDL 130-159 mg/dL Borderline high LDL 160-189 mg/dL High LDL greater than 189 mg/dL Very high Performed By: #### G LULS #### Point of Care testing , Triglyceride w/Reflex 114 mg/dL Normal 35-149 [facility] Comment on above: Result Comment: TRIG ATP III CLASSIFICATION TRIG less than 150 mg/dL Normal TRIG 150-199 mg/dL Borderline high TRIG 200-500 mg/dL High TRIG greater than 500 mg/dL Very high Standard traceable to the Center for Disease Conrtrol and Prevention (CDC) test method. Performed By: #### G LULS #### Point of Care testing , VLDL CHOLESTEROL 22 mg/dL Normal [facility] Comment on above: Performed By: #### G LULS #### Point of Care testing , Serum or plasma high density lipoprotein (HDL) cholesterol measurementOrdered By: Justyn Spann on 04-09-2022 Cholesterol in HDL [Mass/Vol] 37 mg/dL 35-85 [facility] Comment on above: HDL CHOL ATP-III CLA SSIFICATION Cardiovascular Risk HDL > or equal to 60 mg/dL LOW HDL < 40 mg/dL HIGH Serum or plasma total choles terol/high density lipoprotein (HDL) cholesterol mass ratOrdered By: Justyn Spann on 04-09-2022 Cholesterol.total/Choles terol in HDL [Mass ratio] 3.5 {ratio} <5.0 [facility] Triglyceride [Mass/volume] i n Serum or PlasmaOrdered By: Justyn Spann on 04-09-2022 Triglyceride [Mass/Vol] 114 mg/dL 35-149 [facility] Comment on above: TRIG ATP III CLASSIF ICATION TRIG less than 150 mg/dL Normal TRIG 150-199 mg/dL Borderline high TRIG 200-500 mg/dL High TRIG greater than 500 mg/dL Very high Standard traceable to the Center for Disease Conrtrol and Prevention (CDC) test method. Albumin [Mass/volume] in Ser um or PlasmaOrdered By: Kingston Gao on 04-08-2022 Albumin [Mass/Vol] 2.6 g/dL Low 3.2-5.5 [facility] Comment on above: Performed By: #### C BC, PT, PTT, CMP #### [facility] [address] [place] [address] Automated basophil %Ordered By: Kingston Gao on 04-08-2022 Basophils/100 WBC (Bld) 0.6 % Normal . [facility] Comment on above: Performed By: #### C BC, PT, PTT, CMP #### [facility] [address] [place] [address] Automated basophil countOrde red By: Kingston Gao on 04-08-2022 Basophils (Bld) [#/Vol] 0.0 10*3/uL Normal 0.0-0.2 [facility] Comment on above: Result Comment: PERF ORMED BY: [place] [address] PATHOLOGIST [employer]ICE GUIDO ELIZALDE M.D. Performed By: #### C BC, PT, PTT, CMP #### [facility] [address] [place] [address] Automated blood lymphocyte c ount (number/volume)Ordered By: Kingston Gao on 04-08-2022 Lymphocytes (Bld) [#/Vol] 2.0 10*3/uL Normal 1.00-4.8 [facility] Comment on above: Performed By: #### C BC, PT, PTT, CMP #### [address] Automated blood lymphocyte c ount as percentage of total leukocytesOrdered By: Kingston Gao on 04-08-2022 Lymphocytes/100 WBC (Bld) 26.1 % Normal . [facility] Comment on above: Performed By: #### C BC, PT, PTT, CMP #### [address] Automated blood monocyte cou ntOrdered By: Kingston Gao on 04-08-2022 Monocytes (Bld) [#/Vol] 0.7 10*3/uL Normal 0.0-0.8 [facility] Comment on above: Performed By: #### C BC, PT, PTT, CMP #### [address] Automated blood platelet cou nt (count/volume)Ordered By: Kingston Gao on 04-08-2022 Platelets (Bld) [#/Vol] 285 10*3/uL Normal 150-450 [facility] Comment on above: Performed By: #### C BC, PT, PTT, CMP #### [address] Automated blood platelet elizabeth n volume measurementOrdered By: Kingston Gao on 04-08-2022 Platelet mean volume (Bld) [Entitic vol] 8.4 fL Normal 6.3-10.7 [facility] Comment on above: Performed By: #### C BC, PT, PTT, CMP #### [address] Automated eosinophil %Ordere d By: Kingston Gao on 04-08-2022 Eosinophils/100 WBC (Bld) 2.7 % Normal . [facility] Comment on above: Performed By: #### C BC, PT, PTT, CMP #### [address] Automated eosinophil countOr dered By: Kingston Murray on 04-08-2022 Eosinophils (Bld) [#/Vol] 0.2 10*3/uL Normal 0.0-0.45 [facility] Comment on above: Performed By: #### C BC, PT, PTT, CMP #### [address] Automated erythrocyte distri bution width ratioOrdered By: Kingston Gao on 04-08-2022 Erythrocyte distribution width (RBC) [Ratio] 14.0 % Normal 11.9-15.3 [facility] Comment on above: Performed By: #### C BC, PT, PTT, CMP #### [address] Automated erythrocyte mean c orpuscular hemoglobin (mass per erythrocyte)Ordered By: Kingston Gao on 04-08-2022 MCH (RBC) [Entitic mass] 30.4 pg Normal 24.7-34.3 [facility] Comment on above: Performed By: #### C BC, PT, PTT, CMP #### [address] Automated erythrocyte mean c orpuscular volumeOrdered By: Kingston Gao on 04-08-2022 MCV (RBC) [Entitic vol] 92.2 fL Normal 80-100 [facility] Comment on above: Performed By: #### C BC, PT, PTT, CMP #### [address] Automated monocyte %Ordered By: Kingston Gao on 04-08-2022 Monocytes/100 WBC (Bld) 9.4 % Normal . [facility] Comment on above: Performed By: #### C BC, PT, PTT, CMP #### [address] Automated neutrophil %Ordere d By: Kingston Gao on 04-08-2022 Neutrophils/100 WBC (Bld) 61.2 % Normal . [facility] Comment on above: Performed By: #### C BC, PT, PTT, CMP #### [address] Blood erythrocytes automated count (number/volume)Ordered By: Kingston Gao on 04-08-2022 RBC (Bld) [#/Vol] 3.69 10*6/uL Normal 3.60-5.00 [facility] Comment on above: Performed By: #### C BC, PT, PTT, CMP #### [address] Blood hemoglobin measurement (mass/volume)Ordered By: Kingston Gao on 04-08-2022 Hemoglobin (Bld) [Mass/Vol] 11.2 g/dL Low 11.8-15.4 [facility] Comment on above: Performed By: #### C BC, PT, PTT, CMP #### [address] Blood leukocytes automated c ount (number/volume)Ordered By: Kingston Gao on 04-08-2022 WBC (Bld) [#/Vol] 7.6 10*3/uL Normal 4.5-11.0 [facility] Comment on above: Performed By: #### C BC, PT, PTT, CMP #### [address] Blood neutrophil count by au tomated method (number/volume)Ordered By: Kingston Gao on 04-08-2022 Neutrophils (Bld) [#/Vol] 4.7 10*3/uL Normal 1.8-7.7 [facility] Comment on above: Performed By: #### C BC, PT, PTT, CMP #### [address] Complete Blood Count Auto Di ffon 04-08-2022 Mean Corpuscular HGB Conc 33.0 g/dL Normal 32.0-35.0 [facility] Comment on above: Performed By: #### C BC, PT, PTT, CMP #### [address] Complete Blood Count Auto Di ffOrdered By: Kingston Gao on 04-08-2022 Nucleated RBC/100 WBC (Bld) [Ratio] 0.1 % Normal 0-0.5 [facility] Comment on above: Performed By: #### C BC, PT, PTT, CMP #### [facility] [address] [place] [address] [place] Comprehensive Metabolic Pane michael 04-08-2022 ALT [Catalytic activity/Vol] 17 U/L Normal 10-60 [facility] Comment on above: Performed By: #### C BC, PT, PTT, CMP #### [facility] [address] [place] [address] [place] Creatinine Clr Calc Pharmacy 57.76 Normal [facility] Comment on above: Performed By: #### C BC, PT, PTT, CMP #### [facility] [address] Estimated GFR ( Froylan > 60 Normal [facility] Comment on above: Result Comment: GFR estimated reference range: According to KDOQI guidelines, <60 ml/min/1.73m2 is sufficient to diagnose a patient with chronic kidney disease. Performed By: #### C BC, PT, PTT, CMP #### [facility] [address] Estimated GFR (Non- Am > 60 Normal [facility] Comment on above: Performed By: #### C BC, PT, PTT, CMP #### [facility] [address] Estimated glomerular filtrat ion rate (GFR) non- AmericanOrdered By: Kingston Gao on 04-08-2022 GFR/1.73 sq M.predicted among non-blacks MDRD (S/P/Bld) [Vol rate/Area] > 60 mL/Min [facility] Glucose Poct Glucometerson 0 04-08-2022 Glucose [Mass/Vol] 83 mg/dL Normal [facility] Comment on above: Result Comment: Okay Glucose Reference Range is dependent on time and content of last meal. Glucose of more than 200 mg/dL in a nonstressed, ambulatory subject supports the diagnosis of Diabetes Mellitus. PERFORMED BY: [facility] [address] [place] [address] PATHOLOGIST [employer] GUIDO ELIZALDE M.D. Performed By: #### G INOCENTE #### Point of Care testing , Glucose [Mass/Vol] 115 mg/dL Normal [facility] Comment on above: Result Comment: [facility] Glucose Reference Range is dependent on time and content of last meal. Glucose of more than 200 mg/dL in a nonstressed, ambulatory subject supports the diagnosis of Diabetes Mellitus. PERFORMED BY: [place] [address] PATHOLOGIST [employer] GUIDO ELIAZLDE M.D. Performed By: #### C BC, PT, PTT, CMP #### [address] Hematocrit [Volume Fraction] of Blood by Automated countOrdered By: Kingston Gao on 04-08-2022 Hematocrit (Bld) [Volume fraction] 34.0 % Normal 34.0-46.4 [facility] Comment on above: Performed By: #### C BC, PT, PTT, CMP #### [address] MCHC Auto (RBC) [Mass/Vol]Or dered By: Kingston Gao on 04-08-2022 MCHC (RBC) [Mass/Vol] 33.0 g/dL 32.0-35.0 [facility] No Panel InformationOrdered By: Kingston Gao on 04-08-2022 Estimated GFR () > 60 mL/Min [facility] Comment on above: GFR estimated refere nce range: According to KDOQI guidelines, <60 ml/min/1.73m2 is sufficient to diagnose a patient with chronic kidney disease. Pharmacy Creatinine Clearance (Chem 57.76 [facility] Protein [Mass/volume] in Ser um or PlasmaOrdered By: Kingston Gao on 04-08-2022 Protein [Mass/Vol] 5.6 g/dL Low 6.1-7.9 [facility] Comment on above: Performed By: #### C BC, PT, PTT, CMP #### [facility] [address] [place] [address] Serum globulin measurement b y calculation (mass/volume)Ordered By: Kingston Goa on 04-08-2022 Globulin (S) [Mass/Vol] 3.0 g/dL Normal [facility] Comment on above: Performed By: #### C BC, PT, PTT, CMP #### [address] Serum or plasma alanine [place] otransferase measurement without P-5'-P (enzymatic activiOrdered By: Kingston Gao on 04-08-2022 ALT No additional P-5'-P [Catalytic activity/Vol] 17 U/L 10-60 [facility] Serum or plasma albumin/glob ulin mass ratioOrdered By: Kingston Gao on 04-08-2022 Albumin/Globulin [Mass ratio] 0.9 {ratio} Normal [facility] Comment on above: Performed By: #### C BC, PT, PTT, CMP #### [address] Serum or plasma alkaline dolly sphatase measurement (enzymatic activity/volume)Ordered By: Kingston Gao on 04-08-2022 ALP [Catalytic activity/Vol] 56 U/L Normal 32-92 [facility] Comment on above: Performed By: #### C BC, PT, PTT, CMP #### [address] Serum or plasma aspartate am inotransferase measurement (enzymatic activity/volume)Ordered By: Kingston Gao on 04-08-2022 AST [Catalytic activity/Vol] 18 U/L Normal 10-42 [facility] Comment on above: Performed By: #### C BC, PT, PTT, CMP #### [address] Serum or plasma calcium nakul urement (mass/volume)Ordered By: Kingston Gao on 04-08-2022 Calcium [Mass/Vol] 9.2 mg/dL Normal 8.2-10.2 [facility] Comment on above: Performed By: #### C BC, PT, PTT, CMP #### [address] Serum or plasma chloride elizabeth surement (moles/volume)Ordered By: Kingston Gao on 04-08-2022 Chloride [Moles/Vol] 101 mmol/L Normal 95-114 [facility] Comment on above: Performed By: #### C BC, PT, PTT, CMP #### [facility] [address] Serum or plasma creatinine m easurement with calculation of estimated glomerular filtrOrdered By: Kingston Gao on 04-08-2022 Creatinine [Mass/Vol] 0.72 mg/dL Normal 0.44-1.03 [facility] Comment on above: Performed By: #### C BC, PT, PTT, CMP #### [address] Serum or plasma glucose nakul urement (mass/volume)Ordered By: Kingston Gao on 04-08-2022 Glucose [Mass/Vol] 119 mg/dL High 70-100 [facility] Comment on above: ADA recommended refe rence range Random Glucose Reference Range is dependent on time and content of last meal. Glucose of more than 200 mg/dL in a nonstressed, ambulatory subject supports the diagnosis of Diabetes Mellitus. Result Comment: Okay om Glucose Reference Range is dependent on time and content of last meal. Glucose of more than 200 mg/dL in a nonstressed, ambulatory subject supports the diagnosis of Diabetes Mellitus. ADA recommended reference range Performed By: #### C BC, PT, PTT, CMP #### [address] Serum or plasma potassium me asurement (moles/volume)Ordered By: Kingston Gao on 04-08-2022 Potassium [Moles/Vol] 4.2 mmol/L Normal 3.5-5.1 [facility] Comment on above: Performed By: #### C BC, PT, PTT, CMP #### [address] Serum or plasma prealbumin m easurement (mass/volume)Ordered By: Kingston Gao on 04-08-2022 Prealbumin [Mass/Vol] 15.9 mg/dL Low 18.0-38.0 [facility] Comment on above: Result Comment: PERF ORMED BY: [place] [address] PATHOLOGIST [employer] APPRENTICE GUIDO ELIZALDE M.D. Performed By: #### C BC, PT, PTT, CMP #### [address] Serum or plasma sodium measu rement (moles/volume)Ordered By: Kingston Gao on 04-08-2022 Sodium [Moles/Vol] 138 mmol/L Normal 136-146 [facility] Comment on above: Performed By: #### C BC, PT, PTT, CMP #### [address] Serum or plasma total biliru bin measurement (mass/volume)Ordered By: Kingston Gao on 04-08-2022 Bilirubin [Mass/Vol] 0.5 mg/dL Normal 0.3-1.2 [facility] Comment on above: Performed By: #### C BC, PT, PTT, CMP #### [address] Serum or plasma total carbon dioxide measurement (moles/volume)Ordered By: Kingston Gao on 04-08-2022 CO2 [Moles/Vol] 28.4 mmol/L Normal 22.0-30.0 [facility] Comment on above: Performed By: #### C BC, PT, PTT, CMP #### [facility] [address] [place] [address] Serum or plasma urea nitroge n measurement (mass/volume)Ordered By: Kingston Goa on 04-08-2022 Urea nitrogen [Mass/Vol] 7 mg/dL Low 9-23 [facility] Comment on above: Performed By: #### C BC, PT, PTT, CMP #### [facility] [address] [place] [address] CNDSon 04-07-2022 CNDS HNO ID: [id number] Author: Fannie Blandon PA-C Service: Neurosurgery Author Type: Physician Pediatric Allergist Type: Discharge Summary Filed: 04/07/2022 11:07 AM Note Text: Attestation signed by Juice Sears MD at 04/07/2022 12:00 PM . [facility] DISCHARGE SUMMARY Account #: Data Unavailable Admission Date: 03/28/2022 Date of Evaluation: 04/04/2022 Time of Evaluation: 12:05 PM Attending: Dr. Juice Sears MD. Location: H060 [id number]/[id number] Discharge Date: 04/07/2022 Attending Physician: Juice Sears MD PCP: No primary care provider on file. None Treatment Team: Attending Provider: Juice Sears MD Primary Service: Fannie Blandon PA-C Reason for Hospitalization: Spinal stenosis POA: Yes Right leg weakness POA: Yes HLD (hyperlipidemia) POA: Yes Foot drop, right foot POA: Yes Atrial fibrillation (HCC) POA: Yes Benign essential HTN POA: Yes DM type 2 (diabetes mellitus, type 2) ([facility]) POA: Yes Constipation POA: Yes Final Diagnoses: Spinal stenosis POA: Yes Right leg weakness POA: Yes HLD (hyperlipidemia) POA: Yes Foot drop, right foot POA: Yes Atrial fibrillation (HCC) POA: Yes Benign essential HTN POA: Yes DM type 2 (diabetes mellitus, type 2) (HCC) POA: Yes Constipation POA: Yes Operations During Hospitalization: 03/31/2022: L2-L5 laminectomy Procedures During Hospitalization: No procedures performed Hospital Course: The patient was transferred from the [facility] to the [facility] for the right leg foot drop.. After being optimized for surgery by the Neurosurgery and Internal Medicine teams, Saeed Sarabia was identified and brought into the Operating Room by the anesthesia and nursing teams. Prior to surgery the patient was treated with antibiotics and continued with antibiotics postoperatively. The patient underwent a L2-L5 laminectomy with general endotracheal anesthesia. The patient tolerated the procedure and was taken to PACU in stable condition. The patient was then transferred up to the hospital room for postoperative management. Patient was fitted with sequential compression devices for DVT prophylaxis. Patient did very well post-operatively. She was able to work with physical and occupational therapy and was skilled for AR. Her drain was removed and SQH was initiated on POD #2 for DVT prophylaxis. She was also fitted for an AFO. Patient was given one day of IV toradol to reduce inflammation at the dorsal aspect of her right foot. She was able to ambulate better with staff upon discharge and following surgery than she had the previous month. DIscussed with patient to resume her eliquis on April 10. The patient was discharged on POD # 7 in stable condition. Complete and comprehensive discharge instructions were provided to the patient as well as necessary prescriptions. The patient had no further questions and was advised to call with any questions, concerns, or problems. Patient's pain was well controlled with Oral Pain Medications. DC the pt with an Rx for oxycodone for acute postop pain. > 30 MED are needed d/t type of surgery, postoperative course, and pain not adequately controlled with APAP and muscle relaxants. OARRS website checked and validated. All prescriptions have been APPROPRIATELY filled. No suspicious activity was identified.- 03/30/2022 by Fannie Blandon PA-C Physical Therapy was started on POD # 1. Patient progressed satisfactorily through physical therapy until discharge. Based upon the appropriate milestones the patient met during the hospital course, Physical Therapy recommended patient be discharged to Rehabilitation facility. Patient was hemodynamically stable postoperatively. No DVT was found on ultrasound. NO Imaging was performed during post-operative hospital course on post-op day. Internal Medicine was consulted during hospital course for pre-operative clearance. PMR was consulted for rehab disposition. HOME MEDICATIONS: Prior to Admission medications as of 03/31/22 1106 Medication Sig Last Dose Taking bumetanide (BUMEX) 1 mg tablet Take 0.5-1 mg by mouth once daily as needed (edema). Yes gabapentin (NEURONTIN) 100 mg capsule Take 100 mg by mouth three times daily. Yes ezetimibe (ZETIA) 10 mg tablet Take 10 mg by mouth once daily. Yes lisinopril (ZESTRIL, PRINIVIL) 5 mg tablet Take 5 mg by mouth once daily. Yes metoprolol succinate ER (TOPROL XL) 100 mg Take 100 mg by mouth once daily. Yes rosuvastatin (CRESTOR) 5 mg tablet Take 5 mg by mouth once daily. Yes glipiZIDE (GLUCOTROL) 5 mg tablet Take 5 mg by mouth twice daily before meals. Yes spironolactone (ALDACTONE) 25 mg tablet Take 12.5 mg by mouth once daily. Yes metFORMIN (GLUCOPHAGE) 500 mg tablet Take 1 tablet by mouth t (more content not included)... Normal [facility] Glucose Poct Glucometerson 0 04-07-2022 Glucose [Mass/Vol] 161 mg/dL Normal [facility] Comment on above: Result Comment: [facility] Glucose Reference Range is dependent on time and content of last meal. Glucose of more than 200 mg/dL in a nonstressed, ambulatory subject supports the diagnosis of Diabetes Mellitus. PERFORMED BY: [place] [phone] PATHOLOGIST [employer] APPRENTICE GUIDO ELIZALDE M.D. Performed By: #### C BC, PT, PTT, CMP #### [address] Glucose [Mass/Vol] 110 mg/dL Normal [facility] Comment on above: Result Comment: [facility] Glucose Reference Range is dependent on time and content of last meal. Glucose of more than 200 mg/dL in a nonstressed, ambulatory subject supports the diagnosis of Diabetes Mellitus. PERFORMED BY: [place] [phone] PATHOLOGIST [employer] APPRENTICE GUIDO ELIZALDE M.D. Performed By: #### G LULS #### Point of Care testing , THERAPY NTon 04-07-2022 THERAPY NT HNO ID: [id number] Author: Beka Black OTR/L Service: Occupational Therapy Author Type: Occupational Therapist Type: Therapy (PT/OT/Speech/Resp) Filed: 04/07/2022 9:09 AM Note Text: OCCUPATIONAL THERAPY MISSED VISIT SERVICE DATE: 04/07/2022 SERVICE TIME: 0908 to 0908 ROOM: [facility] Per chart pt planned for dc to AR today. Will defer OT this date and f/u per POC as appropriate if pt remains in acute care setting. SIGNATURE: TORRES White PATIENT NAME: Saeed Sarabia DATE: April 07, 2022 TIME: 9:09 AM Normal [facility] SARS-CoV-2 RNA Resp Ql HARMONY+p robeon 04-06-2022 SARS-CoV-2 (COVID-19) RNA HARMONY+probe Ql (Resp) COVID 19 RESULT: SARS-CoV-2 (Agent of COVID-19) Not Detected by RT-PCR or equivalent method. This test has been authorized by FDA under an Emergency Use Authorization (EUA). Normal [facility] Comment on above: Performed By: #### 9 4500-6 #### [facility] CLIA [id number] [address] [place] [address] STATES OF [facility] THERAPY NTon 04-06-2022 THERAPY NT HNO ID: [id number] Author: TORRES White Service: Occupational Therapy Author Type: Occupational Therapist Type: Therapy (PT/OT/Speech/Resp) Filed: 04/06/2022 2:34 PM Note Text: OCCUPATIONAL THERAPY MISSED VISIT SERVICE DATE: 04/06/2022 SERVICE TIME: 1434 to 1434 ROOM: [place] [address] Patient not seen due to Bathing. SIGNATURE: TORRES White PATIENT NAME: Saeed Sarabia DATE: April 06, 2022 TIME: 2:34 PM Normal [facility] THERAPY NT HNO ID: [id number] Author: Eugenia Wilkins, PT Service: ? Author Type: Physical Therapist Type: Therapy (PT/OT/Speech/Resp) Filed: 04/06/2022 10:50 AM Note Text: Physical Therapy Treatment SERVICE DATE: 04/06/2022 SERVICE TIME: 1009 to 1037 ROOM: H060- Recommended Discharge Disposition: Acute Rehab Recommended Discharge Disposition Comments: Will additionally benifit from orthotics consult for RLE AFO d/t drop foot. May progress to home pending clinical course. Recommended Discharge Disposition Due to: Patient requires an active, intensive rehabilitation therapy program due to:;ADL impairment resulting in caregiver dependence;anticipat e community discharge/previous community dweller;decline in functional status requiring daily skilled care;deficits affecting dominant side;deficits affecting non-dominant side;less than 3/5 weakness noted in:;distal LE;ongoing intervention of multiple therapy disciplines;prosthet ic / orthotic needs Anticipated Discharge Needs: Physical Assist at Home;Supervision at Home Physical Assist at Home for: Transfers;Ambulation ;Cleaning;Laundry;Sa fety;Shopping;Self Care;Meals;Stairs;Tr ansportation Supervision at Home due to: Decreased safety awareness Recommended Discharge Equipment: Orthosis PT 6 Clicks Score: 20 Precautions/Activity Restrictions: Fall Risk;Spine Current Hospital Course: 03/31 L2-5 laminectomies w arachnoid bleb repaired with tachosil Reason for Hospital Admission: scheduled sx Relevant Past Medical History: RA, DM II, HTN, HLD, CAD s/p stenting, Aifb on Eliquis Response to Therapy Interventions: Good participation in activities, On-track to achieve discharge goals Assessment Comments: Continues to progress well with mobility. Educated on gait mechanics, pt working toward swing through gait pattern with increased WB through RLE during stance. Improved gait with use of AFO. Continue skilled needs due to: Continued monitoring of vital signs during mobility required, Functional mobility/skill impairments Physical Therapy Problem List: Education Deficit;Safety Deficits;Decreased Activity Tolerance;Decreased Strength;Functional Mobility Impairment;Balance Impaired Treatment Interventions: Education;Strengthen ing;Functional Mobility Training;Balance Training;Energy Conservation Training Plan for next visit: Bed mobility, Chair transfer training, Gait training, Exercise instruction/handout, Sit to Stand Transfers, Standing Tolerance, Walker Training Home Environment Patient Lives With: Spouse Assistance Available: 24 Hour Entry To Home: Ramp Number Of Stairs To Bed/Bath: 0 Tub/Shower Type: walk in w/ bench; tub shower Laundry: A Equipment Owned: Cane;Rollator;Shower Chair Prior Functional Level: Required Assistance;Within Functional Limits;History of Falls Assistance Required With: Cleaning;Laundry;Elizabeth ls;Self Care;Transportation; Shopping 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 ; shares IADLs w/ ; IND ADLs; - driving (as of last few weeks d/t drop foot); + falls (tripped in bathroom d/t drop foot) Patient Report: Agreeable to PT session CURRENT FUNCTIONAL STATUS: Most recent performance Current Functional Mobility Assist Level Additional Information Rolling Minimal Assistance Supine to Sit Minimal Assistance Sit to Supine (not performed this session) Scooting Minimal Assistance Sit to Stand Stand By Assistance Stand to Sit Stand By Assistance Bed to Chair Minimal Assistance Bed To Chair Transfer Type: Stepping Bed To Chair Transfer Equipment: Wheeled Walker Toilet/Commode Contact Guard Assistance;Additiona l Information ambulates to/from bathroom, SBA for sit<>stand Gait Contact Guard Assistance;Additiona l Information Gait Device: Wheeled Walker Gait Distance (feet): 2x60'+15' RLE AFO donned prior to PT session, demonstrates improved RLE swing and clearance with use. Stairs Curb Step Car Transfer Blank mccullough indicate activity not attempted Gait Deviations Right Lower Extremity: Foot clearance decreased;Push off during terminal stance decreased;Stance time decreased;Step length decreased General Deviations/Observati ons: Christal decreased;Non-functi onal gait speed;UE weight bearing on assistive device excessive;Step length decreased;Narrow Base of Support -HLM: 7: Walk 25 feet or more Learning/Educational Needs: Discharge Plan;Equipment;Funct ional Activities/Mobility; Plan of Care;Precautions;Kike abilitation Techniques and Procedures;Safety Goals for Plan of Care: Patient /Caregiver Goals: Go To Rehab Goals: Patient will demonstrate progress to optimize functional mobility, maximize activity tolerance and endurance to maximize function upon discharge. Progress Toward Goals: Progressing as expected Rehab Potential: Good Patient will be discontinued from Physical Therapy when no further skilled needs are identified in (more content not included)... Normal [facility] THERAPY NTon 04-05-2022 THERAPY NT HNO ID: [id number] Author: Eugenia Wilkins PT Service: ? Author Type: Physical Therapist Type: Therapy (PT/OT/Speech/Resp) Filed: 04/05/2022 12:28 PM Note Text: Physical Therapy Treatment SERVICE DATE: 04/05/2022 SERVICE TIME: 1047 to 1134 ROOM: [place] [address] Recommended Discharge Disposition: Acute Rehab Recommended Discharge Disposition Comments: Will additionally benifit from orthotics consult for RLE AFO d/t drop foot. May progress to home pending clinical course. Recommended Discharge Disposition Due to: Patient requires an active, intensive rehabilitation therapy program due to:;ADL impairment resulting in caregiver dependence;anticipat e community discharge/previous community dweller;decline in functional status requiring daily skilled care;deficits affecting dominant side;deficits affecting non-dominant side;less than 3/5 weakness noted in:;distal LE;ongoing intervention of multiple therapy disciplines;prosthet ic / orthotic needs Anticipated Discharge Needs: Physical Assist at Home;Supervision at Home Physical Assist at Home for: Transfers;Ambulation ;Cleaning;Laundry;Sa fety;Shopping;Self Care;Meals;Stairs;Tr ansportation Supervision at Home due to: Decreased safety awareness Recommended Discharge Equipment: Orthosis PT 6 Clicks Score: 18 Precautions/Activity Restrictions: Fall Risk;Spine Current Hospital Course: 03/31 L2-5 laminectomies w arachnoid bleb repaired with tachosil Reason for Hospital Admission: scheduled sx Relevant Past Medical History: RA, DM II, HTN, HLD, CAD s/p stenting, Aifb on Eliquis Response to Therapy Interventions: Good participation in activities, On-track to achieve discharge goals ' Assessment Comments: Continues to demonstrates great improvement in gait training, improved with use of AFO. Continue skilled needs due to: Continued monitoring of vital signs during mobility required, Functional mobility/skill impairments Physical Therapy Problem List: Education Deficit;Safety Deficits;Decreased Activity Tolerance;Decreased Strength;Functional Mobility Impairment;Balance Impaired Treatment Interventions: Education;Strengthen ing;Functional Mobility Training;Balance Training;Energy Conservation Training Plan for next visit: Bed mobility, Chair transfer training, Gait training, Exercise instruction/handout, Sit to Stand Transfers, Standing Tolerance, Walker Training Home Environment Patient Lives With: Spouse Assistance Available: 24 Hour Entry To Home: Ramp Number Of Stairs To Bed/Bath: 0 Tub/Shower Type: walk in w/ bench; tub shower Laundry: A Equipment Owned: Cane;Rollator;Shower Chair Prior Functional Level: Required Assistance;Within Functional Limits;History of Falls Assistance Required With: Cleaning;Laundry;Elizabeth ls;Self Care;Transportation; Shopping 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 ; shares IADLs w/ ; IND ADLs; - driving (as of last few weeks d/t drop foot); + falls (tripped in bathroom d/t drop foot) Patient Report: Agreeable to PT session CURRENT FUNCTIONAL STATUS: Most recent performance Current Functional Mobility Assist Level Additional Information Rolling Minimal Assistance Supine to Sit Minimal Assistance Sit to Supine (not performed this session) Scooting Minimal Assistance Sit to Stand Contact Guard Assistance Stand to Sit Contact Guard Assistance Bed to Chair Minimal Assistance Bed To Chair Transfer Type: Stepping Bed To Chair Transfer Equipment: Wheeled Walker Toilet/Commode Contact Guard Assistance;Additiona l Information ambulates to/from bathroom, CGA for sit<>stand Gait Contact Guard Assistance;Additiona l Information Gait Device: Wheeled Walker (R AFO use) Gait Distance (feet): 2x60' RLE AFO donned prior to PT session, demonstrates improved RLE swing and clearance with use. Stairs Curb Step Car Transfer Blank mccullough indicate activity not attempted Gait Deviations Right Lower Extremity: Foot clearance decreased;Push off during terminal stance decreased;Stance time decreased;Step length decreased General Deviations/Observati ons: Christal decreased;Non-functi onal gait speed;UE weight bearing on assistive device excessive;Step length decreased;Narrow Base of Support -HLM: 7: Walk 25 feet or more Learning/Educational Needs: Discharge Plan;Equipment;Funct ional Activities/Mobility; Plan of Care;Precautions;Kike abilitation Techniques and Procedures;Safety Goals for Plan of Care: Patient /Caregiver Goals: Go To Rehab Goals: Patient will demonstrate progress to optimize functional mobility, maximize activity tolerance and endurance to maximize function upon discharge. Progress Toward Goals: Progressing as expected Rehab Potential: Good Patient will be discontinued from Physical Therapy when no further skilled needs are identified in this setting. PLAN: PT Frequency: Once daily Plan of Care developed with: Pa (more content not included)... Normal [facility] Basic metabolic 2000 panelon 04-04-2022 Anion gap [Moles/Vol] 10 mmol/L Normal 9-18 [facility] Comment on above: Order Comment: Speci men Type: BLOOD SPECIMENOrdering Facility: [facility] Address: [address] [id number] Performed By: #### 2 4321-2 ####[facility] LABCLIA [id number] [place] [address] [place] Calcium [Mass/Vol] 9.1 mg/dL Normal 8.5-10.2 [facility] Comment on above: Order Comment: Speci men Type: BLOOD SPECIMENOrdering Facility: [facility] Address: [address] [place], [place] [id number] Performed By: #### 2 4321-2 ####[facility] LABCLIA [id number] [place] [address] [place] Chloride [Moles/Vol] 98 mmol/L Normal 97-105 [facility] Comment on above: Order Comment: Speci men Type: BLOOD SPECIMENOrdering Facility: [facility] Address: [address] [place], [place] [phone] Performed By: #### 2 4321-2 ####[facility] LABCLIA [id number] [place] [address] [place] CO2 [Moles/Vol] 28 mmol/L Normal 22-30 [facility] Comment on above: Order Comment: Speci men Type: BLOOD SPECIMENOrdering Facility: [facility] Address: [address] [place] [address] Performed By: #### 2 4321-2 ####[facility] LABCLIA [id number] [place] [address] [place] Creatinine [Mass/Vol] 0.68 mg/dL Normal 0.58-0.96 [facility] Comment on above: Order Comment: Speci men Type: BLOOD SPECIMENOrdering Facility: [facility] Address: [address] [place], [place] [phone] Performed By: #### 2 4321-2 ####[facility] LABCLIA [id number] [place] [address] [place] ESTIMATED GLOMERULAR FILTRATION RATE 88 mL/min/1.73m??? Normal >=60 [facility] Comment on above: Order Comment: Akilah nieto Type: BLOOD SPECIMENOrdering Facility: [facility] Address: [address] [place] [address] Result Comment: Roz mated Glomerular Filtration Rate (eGFR) is calculated using the 2020 CKD-EPI creatinine equation. This equation utilizes serum creatinine, sex, and age as parameters. The creatinine assay has traceable calibration to isotope dilution-mass spectrometry. Refer to KDIGO guidelines for clinical interpretation. In patients with unstable renal function, e.g. those with acute kidney injury, the eGFR may not accurately reflect actual GFR. Performed By: #### 2 4321-2 ####[facility] LABIA [id number] [place] [address] [place] Glucose [Mass/Vol] 183 mg/dL High 74-99 [facility] Comment on above: Order Comment: Akilah nieto Type: BLOOD SPECIMENOrdering Facility: [facility] Address: [address] [place] [address] Result Comment: The [place] Diabetes Association (ADA) provides guidance for cutoff values for fasting glucose and random glucose. The ADA defines fasting as no caloric intake for at least 8 hours. Fasting plasma glucose results between 100 to 125 mg/dL indicate increased risk for diabetes (prediabetes). Fasting plasma glucose results greater than or equal to 126 mg/dL meet the criteria for diagnosis of diabetes. In the absence of unequivocal hyperglycemia, results should be confirmed by repeat testing. In a patient with classic symptoms of hyperglycemia or hyperglycemic crisis, random plasma glucose results greater than or equal to 200 mg/dL meet the criteria for diagnosis of diabetes. Reference: Standards of Medical Care in Diabetes 2016, [employer] Diabetes Association. Diabetes Care. 2016.39(Suppl 1). Performed By: #### 2 4321-2 ####[facility] LABIA [id number] [place] [address] [place] Potassium [Moles/Vol] 4.2 mmol/L Normal 3.7-5.1 [facility] Comment on above: Order Comment: Speci men Type: BLOOD SPECIMENOrdering Facility: [facility] Address: [address] [place] [address] Performed By: #### 2 4321-2 ####[facility] LABCLIA [id number] [place] [address] [place] Sodium [Moles/Vol] 136 mmol/L Normal 136-144 [facility] Comment on above: Order Comment: Speci men Type: BLOOD SPECIMENOrdering Facility: [facility] Address: [address] [place] [address] Performed By: #### 2 4321-2 ####[facility] LABCLIA [id number] [place] [address] [place] Urea nitrogen [Mass/Vol] 12 mg/dL Normal 7-21 [facility] Comment on above: Order Comment: Speci men Type: BLOOD SPECIMENOrdering Facility: [facility] Address: [address] [place] [address] Performed By: #### 2 4321-2 ####[facility] LABIA [id number] [place] [address] [place] CBC panel Auto (Bld)on 04-04 Erythrocyte distribution width (RBC) [Ratio] 13.4 % Normal 11.5-15.0 [facility] Comment on above: Order Comment: Speci men Type: BLOOD SPECIMENOrdering Facility: [facility] Address: [address] [place], [place] [phone] Performed By: #### 5 8410-2 ####[facility] LABCLIA [id number] [place] [address] [place] Hematocrit (Bld) [Volume fraction] 33.6 % Low 36.0-46.0 [facility] Comment on above: Order Comment: Speci men Type: BLOOD SPECIMENOrdering Facility: [facility] Address: [address] [place], [place] [phone] Performed By: #### 5 8410-2 ####[facility] LABIA [id number] [place] [address] [place] Hemoglobin (Bld) [Mass/Vol] 10.6 g/dL Low 11.5-15.5 [facility] Comment on above: Order Comment: Speci men Type: BLOOD SPECIMENOrdering Facility: [facility] Address: [address] [place], [place] [phone] Performed By: #### 5 8410-2 ####[facility] [id number] [place] [address] [place] MCH (RBC) [Entitic mass] 29.9 pg Normal 26.0-34.0 [facility] Comment on above: Order Comment: Speci men Type: BLOOD SPECIMENOrdering Facility: [facility] Address: [address] [place], [place] [phone] Performed By: #### 5 8410-2 ####[facility] [id number] [address] [place] MCHC (RBC) [Mass/Vol] 31.5 g/dL Normal 30.5-36.0 [facility] Comment on above: Order Comment: Speci men Type: BLOOD SPECIMENOrdering Facility: [facility] Address: [address] [place], [place] [phone] Performed By: #### 5 8410-2 ####[facility] LABIA [id number] [address] [place] MCV (RBC) [Entitic vol] 94.6 fL Normal 80.0-100.0 [facility] Comment on above: Order Comment: Speci men Type: BLOOD SPECIMENOrdering Facility: [facility] Address: [address] [place], [place] [phone] Performed By: #### 5 8410-2 ####[facility] [id number] [place] [address] [place] Nucleated RBC (Bld) [#/Vol] 10*3/uL Normal <0.01 [facility] Comment on above: Order Comment: Speci men Type: BLOOD SPECIMENOrdering Facility: [facility] Address: [address] [place], [place] [phone] Performed By: #### 5 8410-2 ####[facility] LABCLIA [id number] [place] [address] [place] Platelet mean volume (Bld) [Entitic vol] 11.2 fL Normal 9.0-12.7 [facility] Comment on above: Order Comment: Speci men Type: BLOOD SPECIMENOrdering Facility: [facility] Address: [address] [place] [address] Performed By: #### 5 8410-2 ####[facility] LABCLIA [id number] [place] [address] [place] Platelets (Bld) [#/Vol] 240 10*3/uL Normal 150-400 [facility] Comment on above: Order Comment: Speci men Type: BLOOD SPECIMENOrdering Facility: [facility] Address: [address] [place], [place] [phone] Performed By: #### 5 8410-2 ####[facility] LABCLIA [id number] [place] [address] [place] RBC (Bld) [#/Vol] 3.55 10*6/uL Low 3.90-5.20 [facility] Comment on above: Order Comment: Speci men Type: BLOOD SPECIMENOrdering Facility: [facility] Address: [address] [place], [place] [phone] Performed By: #### 5 8410-2 ####[facility] LABCLIA [id number] [place] [address] [place] WBC (Bld) [#/Vol] 8.74 10*3/uL Normal 3.70-11.00 [facility] Comment on above: Order Comment: Speci men Type: BLOOD SPECIMENOrdering Facility: [facility] Address: [address] [place], [place] [address] Performed By: #### 5 8410-2 ####[facility] LABCLIA [id number] [address] [place] NUTRITIONon 04-04-2022 NUTRITION HNO ID: [id number] Author: Stefania Parsons DTR Service: Nutrition Therapy Author Type: Asset Protection Associate Type: Nutrition Filed: 04/04/2022 3:16 PM Note Text: NUTRITION THERAPY PROPERTY MANAGEMENT ACCOUNTANT NOTE SERVICE DATE: 04/04/2022 SERVICE TIME: 1225 Visit Type: Length of Stay Plan of Care: Follow-Up: Monitor weekly Nursing Admission Assessment Malnutrition Score: 0 Nutrition Intake: Diet Orders (From admission, onward) Start Ordered 03/31/221929 DIET REGULAR START NOW 03/31/221918 Average intake over: Unable to determine Appetite: Good GI Symptoms: None Anthropometrics: There is no height or weight on file to calculate BMI. Loss of lean body mass/visual muscle wasting: No Weight Change: Stable Food Preferences: None Allergies: No food allergies MNT Billing: $ Routine Care : 1-15 minutes SIGNATURE: Stefania Parsons DTR PATIENT NAME: Saeed Sarabia DATE: April 04, 2022 TIME: 3:16 PM Normal [facility] SARS-CoV-2 RNA Resp Ql HARMONY+p robeon 04-04-2022 SARS-CoV-2 (COVID-19) RNA HARMONY+probe Ql (Resp) COVID 19 RESULT: SARS-CoV-2 (Agent of COVID-19) Not Detected by RT-PCR or equivalent method. This test has been authorized by FDA under an Emergency Use Authorization (EUA). Normal [facility] Comment on above: Performed By: #### 9 4500-6 ####[facility] LABIA [id number] [place] [address] [place] THERAPY NTon 04-04-2022 THERAPY NT HNO ID: [id number] Author: Osiel Calzada PTA Service: Physical Therapy Author Type: Cpht Type: Therapy (PT/OT/Speech/Resp) Filed: 04/04/2022 3:38 PM Note Text: Attestation signed by Eugenia Win PT at 04/04/2022 4:34 PM I reviewed and agree with the documentation corresponding to this therapy visit. SIGNATURE: Eugenia Win PT DATE: April 04, 2022 TIME: 4:34 PM Physical Therapy Treatment SERVICE DATE: 04/04/2022 SERVICE TIME: 1437 to 1515 ROOM: [place] [address] Recommended Discharge Disposition: Acute Rehab Recommended Discharge Disposition Comments: Will additionally benifit from orthotics consult for RLE AFO d/t drop foot. May progress to home pending clinical course. Recommended Discharge Disposition Due to: Patient requires an active, intensive rehabilitation therapy program due to:;ADL impairment resulting in caregiver dependence;anticipat e community discharge/previous community dweller;decline in functional status requiring daily skilled care;deficits affecting dominant side;deficits affecting non-dominant side;less than 3/5 weakness noted in:;distal LE;ongoing intervention of multiple therapy disciplines;prosthet ic / orthotic needs Anticipated Discharge Needs: Physical Assist at Home;Supervision at Home Physical Assist at Home for: Transfers;Ambulation ;Cleaning;Laundry;Sa fety;Shopping;Self Care;Meals;Stairs;Tr ansportation Supervision at Home due to: Decreased safety awareness Recommended Discharge Equipment: Orthosis PT 6 Clicks Score: 17 Precautions/Activity Restrictions: Fall Risk;Spine Current Hospital Course: 03/31 L2-5 laminectomies w arachnoid bleb repaired with tachosil Reason for Hospital Admission: scheduled sx Relevant Past Medical History: RA, DM II, HTN, HLD, CAD s/p stenting, Aifb on Eliquis Response to Therapy Interventions: Good participation in activities, On-track to achieve discharge goals Assessment Comments: Improving gait distances noted. Cues and support to aid in improving gait quality. Cue so to help patient verbalize precautions accurately. Most difficulty with dynamic standing balance with one hand hold assist support (see progress noted for details). Appropriate for acute rehab (patient motivated, and with accommodation should be able to tolerate higher intensity/3 hr therapies). Continue per care plan while in house. Continue skilled needs due to: Continued monitoring of vital signs during mobility required, Functional mobility/skill impairments Physical Therapy Problem List: Education Deficit;Pain;Safety Deficits;Impaired Self Care;Decreased Activity Tolerance;Decreased Strength;Decreased Range Of Motion;Functional Mobility Impairment;Balance Impaired;Sensory Deficit Treatment Interventions: Education;Strengthen ing;Functional Mobility Training;Balance Training;Energy Conservation Training Plan for next visit: Bed mobility, Chair transfer training, Gait training, Exercise instruction/handout, Sit to Stand Transfers, Standing Tolerance, Walker Training Home Environment Patient Lives With: Spouse Assistance Available: 24 Hour Entry To Home: Ramp Number Of Stairs To Bed/Bath: 0 Tub/Shower Type: walk in w/ bench; tub shower Laundry: A Equipment Owned: Cane;Rollator;Shower Chair Prior Functional Level: Required Assistance;Within Functional Limits;History of Falls Assistance Required With: Cleaning;Laundry;Elizabeth ls;Self Care;Transportation; Shopping 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 ; shares IADLs w/ ; IND ADLs; - driving (as of last few weeks d/t drop foot); + falls (tripped in bathroom d/t drop foot) Patient Report: Agreeable to PT session CURRENT FUNCTIONAL STATUS: Most recent performance Current Functional Mobility Assist Level Additional Information Rolling Minimal Assistance Supine to Sit Minimal Assistance Sit to Supine (not performed this session) Scooting Minimal Assistance Sit to Stand Minimal Assistance Stand to Sit Minimal Assistance Bed to Chair Minimal Assistance Bed To Chair Transfer Type: Stepping Bed To Chair Transfer Equipment: Wheeled Walker Toilet/Commode Minimal Assistance Gait Minimal Assistance Gait Device: Wheeled Walker (R AFO use) Gait Distance (feet): 20 feet, 35 feet. Limited by fatigue. Decreased gait quality noted. Stairs Curb Step Car Transfer Blank mccullough indicate activity not attempted Gait Deviations Right Lower Extremity: Foot clearance decreased;Push off during terminal stance decreased;Stance time decreased;Step length decreased General Deviations/Observati ons: Christal decreased;Non-functi onal gait speed;UE weight bearing on assistive device excessive;Step length decreased;Narrow Base of Support (fluxuatin (more content not included)... Normal [facility] Urinalysis complete panel (U )on 04-04-2022 Bilirubin Ql (U) Negative Normal Negative [facility] Comment on above: Order Comment: Speci men Type: URINE SPECIMENOrdering Facility: [facility] Address: [address] [place] [address] Performed By: #### 2 4356-8 ####[facility] LABIA [id number] [place] [address] [place] Clarity (Unsp spec) Clear Normal Clear [facility] Comment on above: Order Comment: Speci men Type: URINE SPECIMENOrdering Facility: [facility] Address: [address] [place] [address] Performed By: #### 2 4356-8 ####[facility] LABIA [id number] [place] [address] [place] Color (U) Yellow Normal Yellow [facility] Comment on above: Order Comment: Speci men Type: URINE SPECIMENOrdering Facility: [facility] Address: [address] [place] [address] Performed By: #### 2 4356-8 ####[facility] LABIA [id number] [place] [address] [place] Epithelial cells LM.HPF (Urine sed) [#/Area] Few Normal [facility] Comment on above: Order Comment: Speci men Type: URINE SPECIMENOrdering Facility: [facility] Address: [address] [place] [address] Result Comment: Few Performed By: #### 2 4356-8 ####[facility] LABCLIA [id number] [address] OF [facility] Glucose Test strip (U) [Mass/Vol] Negative Normal Negative [facility] Comment on above: Order Comment: Speci men Type: URINE SPECIMENOrdering Facility: [facility] Address: [address] [place], [place] [phone] Performed By: #### 2 4356-8 ####[facility] LABCLIA [id number] [address] [place] Hemoglobin Ql (U) Negative Normal Negative [facility] Comment on above: Order Comment: Speci men Type: URINE SPECIMENOrdering Facility: [facility] Address: [address] [place], [place] [phone] Performed By: #### 2 4356-8 ####[facility] LABCLIA [id number] [place] [address] [place] Ketones Ql (U) Trace Abnormal Negative [facility] Comment on above: Order Comment: Speci men Type: URINE SPECIMENOrdering Facility: [facility] Address: [address] [place], [place] [phone] Performed By: #### 2 4356-8 ####[facility] LABCLIA [id number] [address] [place] Leukocyte esterase Test strip Ql (U) Negative Normal Negative [facility] Comment on above: Order Comment: Speci men Type: URINE SPECIMENOrdering Facility: [facility] Address: [address] [place] [address] Performed By: #### 2 4356-8 ####[facility] LABCLIA [id number] [place] [address] [place] Nitrite Ql (U) Negative Normal Negative [facility] Comment on above: Order Comment: Speci men Type: URINE SPECIMENOrdering Facility: [facility] Address: [address] [place], [place] [phone] Performed By: #### 2 4356-8 ####[facility] LABIA [id number] [place] [address] [place] pH (U) 7.0 [pH] Normal 5.0-8.0 [facility] Comment on above: Order Comment: Speci men Type: URINE SPECIMENOrdering Facility: [facility] Address: [address] [place], [place] [phone] Performed By: #### 2 4356-8 ####[facility] LABIA [id number] [place] [address] [place] Protein (U) [Mass/Vol] 1+ Abnormal Negative Cl [facility] Comment on above: Order Comment: Speci men Type: URINE SPECIMENOrdering Facility: [facility] Address: [address] [place], [place] [phone] Performed By: #### 2 4356-8 ####[facility] LABIA [id number] [place] [address] [place] RBC LM.HPF (Urine sed) [#/Area] 3-5 /HPF Abnormal 0-3 /HPF [facility] Comment on above: Order Comment: Speci men Type: URINE SPECIMENOrdering Facility: [facility] Address: [address] [place], [place] [phone] Performed By: #### 2 4356-8 ####[facility] LABIA [id number] [place] [address] [place] Specific gravity (U) [Rel density] 1.015 Normal 1.005-1.030 [facility] Comment on above: Order Comment: Speci men Type: URINE SPECIMENOrdering Facility: [facility] Address: [address] [place], [place] [phone] Performed By: #### 2 4356-8 ####[facility] LABCLIA [id number] [place] [address] [place] Urobilinogen Ql (U) Negative Normal Negative [facility] Comment on above: Order Comment: Speci men Type: URINE SPECIMENOrdering Facility: [facility] Address: [address] [place] [address] Performed By: #### 2 4356-8 ####[facility] LABCLIA [id number] [place] [address] [place] WBC LM.HPF (Urine sed) [#/Area] 6-10 /HPF Abnormal 0-5 /HPF [facility] Comment on above: Order Comment: Speci men Type: URINE SPECIMENOrdering Facility: [facility] Address: [address] [place] [address] Performed By: #### 2 4356-8 ####[facility] LABIA [id number] [place] [address] [place] Basic metabolic 2000 panelon 04-03-2022 Anion gap [Moles/Vol] 9 mmol/L Normal 9-18 [facility] Comment on above: Order Comment: Speci men Type: BLOOD SPECIMENOrdering Facility: [facility] Address: [address] [place] [address] Performed By: #### 2 4321-2 ####[facility] LABIA [id number] [place] [address] [place] Calcium [Mass/Vol] 8.9 mg/dL Normal 8.5-10.2 [facility] Comment on above: Order Comment: Speci men Type: BLOOD SPECIMENOrdering Facility: [facility] Address: [address] [place], [place] [phone] Performed By: #### 2 4321-2 ####[facility] LABIA [id number] [place] [address] [place] Chloride [Moles/Vol] 97 mmol/L Normal 97-105 [facility] Comment on above: Order Comment: Speci men Type: BLOOD SPECIMENOrdering Facility: [facility] Address: [address] [place] [address] Performed By: #### 2 4321-2 ####[facility] LABCLIA [id number] [place] [address] [place] CO2 [Moles/Vol] 28 mmol/L Normal 22-30 [facility] Comment on above: Order Comment: Speci men Type: BLOOD SPECIMENOrdering Facility: [facility] Address: [address] [place] [address] Performed By: #### 2 4321-2 ####[facility] LABCLIA [id number] [address] STATES OF [facility] Creatinine [Mass/Vol] 0.80 mg/dL Normal 0.58-0.96 [facility] Comment on above: Order Comment: Speci men Type: BLOOD SPECIMENOrdering Facility: [facility] Address: [address] [place] [address] Performed By: #### 2 4321-2 ####[facility] LABCLIA [id number] [address] OF [facility] ESTIMATED GLOMERULAR FILTRATION RATE 74 mL/min/1.73m??? Normal >=60 [facility] Comment on above: Order Comment: Speci men Type: BLOOD SPECIMENOrdering Facility: [facility] Address: [address] [place], [place] [phone] Result Comment: Roz mated Glomerular Filtration Rate (eGFR) is calculated using the 2020 CKD-EPI creatinine equation. This equation utilizes serum creatinine, sex, and age as parameters. The creatinine assay has traceable calibration to isotope dilution-mass spectrometry. Refer to KDIGO guidelines for clinical interpretation. In patients with unstable renal function, e.g. those with acute kidney injury, the eGFR may not accurately reflect actual GFR. Performed By: #### 2 4321-2 ####[facility] LABCLIA [id number] [place] [address] [place] Glucose [Mass/Vol] 211 mg/dL High 74-99 [facility] Comment on above: Order Comment: Speci men Type: BLOOD SPECIMENOrdering Facility: [facility] Address: [address] [place] [address] Result Comment: The [place] Diabetes Association (ADA) provides guidance for cutoff values for fasting glucose and random glucose. The ADA defines fasting as no caloric intake for at least 8 hours. Fasting plasma glucose results between 100 to 125 mg/dL indicate increased risk for diabetes (prediabetes). Fasting plasma glucose results greater than or equal to 126 mg/dL meet the criteria for diagnosis of diabetes. In the absence of unequivocal hyperglycemia, results should be confirmed by repeat testing. In a patient with classic symptoms of hyperglycemia or hyperglycemic crisis, random plasma glucose results greater than or equal to 200 mg/dL meet the criteria for diagnosis of diabetes. Reference: Standards of Medical Care in Diabetes 2016, [place] Diabetes Association. Diabetes Care. 2016.39(Suppl 1). Performed By: #### 2 4321-2 ####[facility] LABCLIA [id number] [place] [address] [place] Potassium [Moles/Vol] 4.2 mmol/L Normal 3.7-5.1 [facility] Comment on above: Order Comment: Speci men Type: BLOOD SPECIMENOrdering Facility: [facility] Address: [address] [place], [place] [address] Performed By: #### 2 4321-2 ####[facility] LABCLIA [id number] [place] [address] [place] Sodium [Moles/Vol] 134 mmol/L Low 136-144 [facility] Comment on above: Order Comment: Speci men Type: BLOOD SPECIMENOrdering Facility: [facility] Address: [address] [place], [place] [address] Performed By: #### 2 4321-2 ####[facility] LABCLIA [id number] [place] [address] [place] Urea nitrogen [Mass/Vol] 14 mg/dL Normal 7-21 [facility] Comment on above: Order Comment: Speci men Type: BLOOD SPECIMENOrdering Facility: [facility] Address: [address] [place] [address] Performed By: #### 2 4321-2 ####[facility] LABCLIA [id number] [place] [address] [place] CBC panel Auto (Bld)on 04-03 Erythrocyte distribution width (RBC) [Ratio] 13.4 % Normal 11.5-15.0 [facility] Comment on above: Order Comment: Speci men Type: BLOOD SPECIMENOrdering Facility: [facility] Address: [address] [place] [address] Performed By: #### 5 8410-2 ####[facility] LABIA [id number] [place] [address] [place] Hematocrit (Bld) [Volume fraction] 31.8 % Low 36.0-46.0 [facility] Comment on above: Order Comment: Speci men Type: BLOOD SPECIMENOrdering Facility: [facility] Address: [address] [place] [address] Performed By: #### 5 8410-2 ####[facility] LABCLIA [id number] [place] [address] [place] Hemoglobin (Bld) [Mass/Vol] 10.3 g/dL Low 11.5-15.5 [facility] Comment on above: Order Comment: Speci men Type: BLOOD SPECIMENOrdering Facility: [facility] Address: [address] [place] [address] Performed By: #### 5 8410-2 ####[facility] LABIA [id number] [place] [address] [place] MCH (RBC) [Entitic mass] 30.2 pg Normal 26.0-34.0 [facility] Comment on above: Order Comment: Speci men Type: BLOOD SPECIMENOrdering Facility: [facility] Address: [address] [place] [address] Performed By: #### 5 8410-2 ####[facility] LABIA [id number] [place] [address] [place] MCHC (RBC) [Mass/Vol] 32.4 g/dL Normal 30.5-36.0 [facility] Comment on above: Order Comment: Speci men Type: BLOOD SPECIMENOrdering Facility: [facility] Address: [address] [place] [address] Performed By: #### 5 8410-2 ####[facility] LABIA [id number] [address] [place] MCV (RBC) [Entitic vol] 93.3 fL Normal 80.0-100.0 C [facility] Comment on above: Order Comment: Speci men Type: BLOOD SPECIMENOrdering Facility: [facility] Address: [address] [place], [place] [phone] Performed By: #### 5 8410-2 ####[facility] LABIA [id number] [place] [address] [place] Nucleated RBC (Bld) [#/Vol] 10*3/uL Normal <0.01 [facility] Comment on above: Order Comment: Speci men Type: BLOOD SPECIMENOrdering Facility: [facility] Address: [address] [place], [place] [phone] Performed By: #### 5 8410-2 ####[facility] LABIA [id number] [place] [address] [place] Platelet mean volume (Bld) [Entitic vol] 10.4 fL Normal 9.0-12.7 [facility] Comment on above: Order Comment: Speci men Type: BLOOD SPECIMENOrdering Facility: [facility] Address: [address] [place] [address] Performed By: #### 5 8410-2 ####[facility] LABIA [id number] [address] [place] Platelets (Bld) [#/Vol] 202 10*3/uL Normal 150-400 [facility] Comment on above: Order Comment: Speci men Type: BLOOD SPECIMENOrdering Facility: [facility] Address: [address] [place] [address] Performed By: #### 5 8410-2 ####[facility] [id number] [address] STATES OF [facility] RBC (Bld) [#/Vol] 3.41 10*6/uL Low 3.90-5.20 [facility] Comment on above: Order Comment: Speci men Type: BLOOD SPECIMENOrdering Facility: [facility] Address: [address] [place] [address] Performed By: #### 5 8410-2 ####[facility] [id number] [address] OF [facility] WBC (Bld) [#/Vol] 10.11 10*3/uL Normal 3.70-11.00 [facility] Comment on above: Order Comment: Speci men Type: BLOOD SPECIMENOrdering Facility: [facility] Address: [address] [place] [address] Performed By: #### 5 8410-2 ####[facility] [id number] [address] OF [facility] THERAPY NTon 04-03-2022 THERAPY NT HNO ID: [id number] Author: Osiel Calzada PTA Service: Physical Therapy Author Type: Cpht Type: Therapy (PT/OT/Speech/Resp) Filed: 04/03/2022 12:32 PM Note Text: Attestation signed by Cyndee Vernon PT DPT at 04/03/2022 1:25 PM I reviewed and agree with the documentation corresponding to this therapy visit. SIGNATURE: Cyndee Vernon PT, DPT DATE: April 03, 2022 TIME: 1:25 PM Physical Therapy Treatment SERVICE DATE: 04/03/2022 SERVICE TIME: 1052 to 1154 ROOM: [place] [address] Recommended Discharge Disposition: Acute Rehab Recommended Discharge Disposition Comments: Will additionally benifit from orthotics consult for RLE KEYSHAWNO d/t drop foot. May progress to home pending clinical course. Recommended Discharge Disposition Due to: Patient requires an active, intensive rehabilitation therapy program due to:;ADL impairment resulting in caregiver dependence;anticipat e community discharge/previous community dweller;decline in functional status requiring daily skilled care;deficits affecting dominant side;deficits affecting non-dominant side;less than 3/5 weakness noted in:;distal LE;ongoing intervention of multiple therapy disciplines;prosthet ic / orthotic needs Anticipated Discharge Needs: Physical Assist at Home;Supervision at Home Physical Assist at Home for: Transfers;Ambulation ;Cleaning;Laundry;Sa fety;Shopping;Self Care;Meals;Stairs;Tr ansportation Supervision at Home due to: Decreased safety awareness Recommended Discharge Equipment: Orthosis PT 6 Clicks Score: 17 Precautions/Activity Restrictions: Fall Risk;Spine Current Hospital Course: 03/31 L2-5 laminectomies w arachnoid bleb repaired with tachosil Reason for Hospital Admission: scheduled sx Relevant Past Medical History: RA, DM II, HTN, HLD, CAD s/p stenting, Aifb on Eliquis Response to Therapy Interventions: Good participation in activities, On-track to achieve discharge goals Assessment Comments: Tolerated activities well. Slight increase in gait distance noted. Tolerated use of R AFO during session. Will need continued therapies to progress functional mobility deficits as stated below in PT problem list. Acute rehab appropriate (motivated and with accommodation should be able to tolerate higher intensity therapies/3 hr therapies). Continue per care plan while in house. Continue skilled needs due to: Continued monitoring of vital signs during mobility required, Functional mobility/skill impairments Physical Therapy Problem List: Education Deficit;Pain;Safety Deficits;Impaired Self Care;Decreased Activity Tolerance;Decreased Strength;Decreased Range Of Motion;Functional Mobility Impairment;Balance Impaired;Sensory Deficit Treatment Interventions: Education;Self Care / Home Management;Strengthe nabeel;Functional Mobility Training;Balance Training Plan for next visit: Bed mobility, Chair transfer training, Gait training, Sit to Stand Transfers, Standing Balance, Equipment needed (specify) Home Environment Patient Lives With: Spouse Assistance Available: 24 Hour Entry To Home: Ramp Number Of Stairs To Bed/Bath: 0 Tub/Shower Type: walk in w/ bench; tub shower Laundry: A Equipment Owned: Cane;Rollator;Shower Chair Prior Functional Level: Required Assistance;Within Functional Limits;History of Falls Assistance Required With: Cleaning;Laundry;Elizabeth ls;Self Care;Transportation; Shopping 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 ; shares IADLs w/ ; IND ADLs; - driving (as of last few weeks d/t drop foot); + falls (tripped in bathroom d/t drop foot) Patient Report: Agreeable to PT session CURRENT FUNCTIONAL STATUS: Most recent performance Current Functional Mobility Assist Level Additional Information Rolling Minimal Assistance Supine to Sit Minimal Assistance Sit to Supine (not performed this session) Scooting Minimal Assistance Sit to Stand Minimal Assistance Stand to Sit Minimal Assistance Bed to Chair Minimal Assistance Bed To Chair Transfer Type: Stepping Bed To Chair Transfer Equipment: Wheeled Walker Toilet/Commode Minimal Assistance Wheeled walker use. Gait Minimal Assistance Gait Device: Wheeled Walker (use of R AFO) Gait Distance (feet): 15 feet, 5 feet Extended breaks between trials for recovery. Stairs Curb Step Car Transfer Blank mccullough indicate activity not attempted Gait Deviations Right Lower Extremity: Foot clearance decreased;Push off during terminal stance decreased;Stance time decreased;Step length decreased General Deviations/Observati ons: Christal decreased;Non-functi onal gait speed;UE weight bearing on assistive device excessive;Step length decreased;Narrow Base of Support (fluxuating steps lengths) -HLM: 6: W (more content not included)... Normal [facility] Basic metabolic 2000 panelon 04-02-2022 Anion gap [Moles/Vol] 9 mmol/L Normal 9-18 [facility] Comment on above: Order Comment: Speci men Type: BLOOD SPECIMENOrdering Facility: [facility] Address: [address] [place] [address] Performed By: #### 2 4321-2 ####[facility] LABCLIA [id number] [place] [address] [place] Calcium [Mass/Vol] 9.2 mg/dL Normal 8.5-10.2 [facility] Comment on above: Order Comment: Speci men Type: BLOOD SPECIMENOrdering Facility: [facility] Address: [address] [address] Performed By: #### 2 4321-2 ####[facility] LABCLIA [id number] [place] [address] [place] Chloride [Moles/Vol] 98 mmol/L Normal 97-105 [facility] Comment on above: Order Comment: Speci men Type: BLOOD SPECIMENOrdering Facility: [facility] Address: [address] Performed By: #### 2 4321-2 ####[facility] LABCLIA [id number] [place] [address] [place] CO2 [Moles/Vol] 26 mmol/L Normal 22-30 [facility] Comment on above: Order Comment: Speci men Type: BLOOD SPECIMENOrdering Facility: [facility] Address: [address] [place], [place] [address] Performed By: #### 2 4321-2 ####[facility] LABIA [id number] [address] STATES OF [facility] Creatinine [Mass/Vol] 0.69 mg/dL Normal 0.58-0.96 [facility] Comment on above: Order Comment: Speci men Type: BLOOD SPECIMENOrdering Facility: [facility] Address: [address] [place], [place] [address] Performed By: #### 2 4321-2 ####[facility] LABIA [id number] [address] OF [facility] ESTIMATED GLOMERULAR FILTRATION RATE 87 mL/min/1.73m??? Normal >=60 [facility] Comment on above: Order Comment: Speci men Type: BLOOD SPECIMENOrdering Facility: [facility] Address: [address] [place] [address] Result Comment: Roz mated Glomerular Filtration Rate (eGFR) is calculated using the 2020 CKD-EPI creatinine equation. This equation utilizes serum creatinine, sex, and age as parameters. The creatinine assay has traceable calibration to isotope dilution-mass spectrometry. Refer to KDIGO guidelines for clinical interpretation. In patients with unstable renal function, e.g. those with acute kidney injury, the eGFR may not accurately reflect actual GFR. Performed By: #### 2 4321-2 ####[facility] LABIA [id number] [place] [address] [place] Glucose [Mass/Vol] 287 mg/dL High 74-99 [facility] Comment on above: Order Comment: Speci men Type: BLOOD SPECIMENOrdering Facility: [facility] Address: [address] Result Comment: The [place] Diabetes Association (ADA) provides guidance for cutoff values for fasting glucose and random glucose. The ADA defines fasting as no caloric intake for at least 8 hours. Fasting plasma glucose results between 100 to 125 mg/dL indicate increased risk for diabetes (prediabetes). Fasting plasma glucose results greater than or equal to 126 mg/dL meet the criteria for diagnosis of diabetes. In the absence of unequivocal hyperglycemia, results should be confirmed by repeat testing. In a patient with classic symptoms of hyperglycemia or hyperglycemic crisis, random plasma glucose results greater than or equal to 200 mg/dL meet the criteria for diagnosis of diabetes. Reference: Standards of Medical Care in Diabetes 2016, [place] Diabetes Association. Diabetes Care. 2016.39(Suppl 1). Performed By: #### 2 4321-2 ####[facility] LABCLIA [id number] [place] [address] [place] Potassium [Moles/Vol] 4.0 mmol/L Normal 3.7-5.1 [facility] Comment on above: Order Comment: Speci men Type: BLOOD SPECIMENOrdering Facility: [facility] Address: [address] [place] [address] Performed By: #### 2 4321-2 ####[facility] LABCLIA [id number] [place] [address] [place] Sodium [Moles/Vol] 133 mmol/L Low 136-144 [facility] Comment on above: Order Comment: Musai men Type: BLOOD SPECIMENOrdering Facility: [facility] Address: [address] [place] [address] Performed By: #### 2 4321-2 ####[facility] LABCLIA [id number] [place] [address] [place] Urea nitrogen [Mass/Vol] 13 mg/dL Normal 7-21 [facility] Comment on above: Order Comment: Speci men Type: BLOOD SPECIMENOrdering Facility: [facility] Address: [address] [place] [address] Performed By: #### 2 4321-2 ####[facility] LABCLIA [id number] [place] [address] [place] CBC panel Auto (Bld)on 04-02 Erythrocyte distribution width (RBC) [Ratio] 13.3 % Normal 11.5-15.0 [facility] Comment on above: Order Comment: Speci men Type: BLOOD SPECIMENOrdering Facility: [facility] Address: [address] [place], [place] [address] Performed By: #### 5 8410-2 ####[facility] LABIA [id number] [place] [address] [place] Hematocrit (Bld) [Volume fraction] 33.4 % Low 36.0-46.0 [facility] Comment on above: Order Comment: Speci men Type: BLOOD SPECIMENOrdering Facility: [facility] Address: [address] [place], [place] [address] Performed By: #### 5 8410-2 ####[facility] LABIA [id number] [address] [place] Hemoglobin (Bld) [Mass/Vol] 10.7 g/dL Low 11.5-15.5 [facility] Comment on above: Order Comment: Speci men Type: BLOOD SPECIMENOrdering Facility: [facility] Address: [address] [place], [place] [address] Performed By: #### 5 8410-2 ####[facility] LABIA [id number] [place] [address] [place] MCH (RBC) [Entitic mass] 30.0 pg Normal 26.0-34.0 [facility] Comment on above: Order Comment: Speci men Type: BLOOD SPECIMENOrdering Facility: [facility] Address: [address] [place], [place] [address] Performed By: #### 5 8410-2 ####[facility] LABIA [id number] [place] [address] [place] MCHC (RBC) [Mass/Vol] 32.0 g/dL Normal 30.5-36.0 [facility] Comment on above: Order Comment: Speci men Type: BLOOD SPECIMENOrdering Facility: [facility] Address: [address] [place], [place] [address] Performed By: #### 5 8410-2 ####[facility] LABIA [id number] [address] STATES [facility] MCV (RBC) [Entitic vol] 93.6 fL Normal 80.0-100.0 C [facility] Comment on above: Order Comment: Speci men Type: BLOOD SPECIMENOrdering Facility: [facility] Address: [address] [place], [place] [address] Performed By: #### 5 8410-2 ####[facility] LABIA [id number] [place] [address] [place] Nucleated RBC (Bld) [#/Vol] 10*3/uL Normal <0.01 [facility] Comment on above: Order Comment: Speci men Type: BLOOD SPECIMENOrdering Facility: [facility] Address: [address] [place], [place] [address] Performed By: #### 5 8410-2 ####[facility] LABIA [id number] [place] [address] [place] Platelet mean volume (Bld) [Entitic vol] 10.5 fL Normal 9.0-12.7 [facility] Comment on above: Order Comment: Speci men Type: BLOOD SPECIMENOrdering Facility: [facility] Address: [address] [place] [address] Performed By: #### 5 8410-2 ####[facility] LABIA [id number] [place] [address] [place] Platelets (Bld) [#/Vol] 210 10*3/uL Normal 150-400 [facility] Comment on above: Order Comment: Speci men Type: BLOOD SPECIMENOrdering Facility: [facility] Address: [address] [place], [place] [phone] Performed By: #### 5 8410-2 ####[facility] LABIA [id number] [place] [address] [place] RBC (Bld) [#/Vol] 3.57 10*6/uL Low 3.90-5.20 [facility] Comment on above: Order Comment: Speci men Type: BLOOD SPECIMENOrdering Facility: [facility] Address: [address] [place] [address] Performed By: #### 5 8410-2 ####[facility] [id number] [place] [address] [place] WBC (Bld) [#/Vol] 11.18 10*3/uL High 3.70-11.00 [facility] Comment on above: Order Comment: Speci men Type: BLOOD SPECIMENOrdering Facility: [facility] Address: [address] [place] [address] Performed By: #### 5 8410-2 ####[facility] [id number] [place] [address] [place] Magn[facility] Magnesium [Mass/Vol] 2.1 mg/dL Normal 1.7-2.3 [facility] Comment on above: Order Comment: Speci men Type: BLOOD SPECIMENOrdering Facility: [facility] Address: [address] [place] [address] Performed By: #### 1 9123-9 ####[facility] [id number] [place] [address] [place] ANES POSTPROC EVALon 022 ANES POSTPROC EVAL HNO ID: [id number] Author: Ever Salcedo MD Service: ? Author Type: Anesthesiologist Type: Anesthesia Postprocedure Evaluation Filed: 04/01/2022 6:51 AM Note Text: POST ANESTHESIA EVALUATION NOTE : 1940 Procedure Summary Date: 03/31/22 Room / Location: [address] [facility] Anesthesia Start: 1616 Anesthesia Stop: 2012 Procedure: LAMINOTOMY W/DECOMPRESSION NERVE ROOT(S),INCLUDING PARTIAL FACETECTOMY,FORAMINO MIGUEL AND/OR EXCISION HERNIATED DISC; EA ADD'L INTERSPACE,CERVICAL/ LUMBAR (N/A Spine Lumbar) Diagnosis: Lumbar stenosis with neurogenic claudication Surgeons: Juice Sears MD Responsible Provider: Ever Salcedo MD Anesthesia Type: general ASA Status: 3 Anesthesia Type: general Airway Type: ETT Last Vitals Vitals Value Taken Time BP 140/70 04/01/22521 Temp 36.3 ?C (97.3 ?F) 04/01/22522 Pulse 98 04/01/22522 Resp 16 04/01/22521 SpO2 97 % 04/01/22522 [facility] AN POST OP NOTE Anesthesia Observations No Documentation SIGNATURE: Ever Salcedo MD PATIENT NAME: Saeed Sarabia DATE: April 01, 2022 TIME: 6:51 AM CSN: [id number] Normal [facility] Basic metabolic 2000 panelon 04-01-2022 Anion gap [Moles/Vol] 11 mmol/L Normal 9-18 [facility] Comment on above: Order Comment: Speci men Type: BLOOD SPECIMENOrdering Facility: [facility] Address: [address] [place] [address] Performed By: #### 2 4321-2 ####[facility] [id number] [place] [address] [place] Calcium [Mass/Vol] 8.8 mg/dL Normal 8.5-10.2 [facility] Comment on above: Order Comment: Speci men Type: BLOOD SPECIMENOrdering Facility: [facility] Address: [address] [place] [address] Performed By: #### 2 4321-2 ####[facility] LABIA [id number] [place] [address] [place] Chloride [Moles/Vol] 103 mmol/L Normal 97-105 [facility] Comment on above: Order Comment: Speci men Type: BLOOD SPECIMENOrdering Facility: [facility] Address: [address] [place] [address] Performed By: #### 2 4321-2 ####[facility] LABCLIA [id number] [place] [address] [place] CO2 [Moles/Vol] 25 mmol/L Normal 22-30 [facility] Comment on above: Order Comment: Speci men Type: BLOOD SPECIMENOrdering Facility: [facility] Address: [address] [place] [address] Performed By: #### 2 4321-2 ####[facility] LABIA [id number] [place] [address] [place] [facility] Creatinine [Mass/Vol] 0.70 mg/dL Normal 0.58-0.96 [facility] Comment on above: Order Comment: Speci men Type: BLOOD SPECIMENOrdering Facility: [facility] Address: [address] [place] [address] Performed By: #### 2 4321-2 ####[facility] LABIA [id number] [place] [address] [place] ESTIMATED GLOMERULAR FILTRATION RATE 87 mL/min/1.73m??? Normal >=60 [facility] Comment on above: Order Comment: Speci men Type: BLOOD SPECIMENOrdering Facility: [facility] Address: [address] [place] [address] Result Comment: Roz mated Glomerular Filtration Rate (eGFR) is calculated using the 2020 CKD-EPI creatinine equation. This equation utilizes serum creatinine, sex, and age as parameters. The creatinine assay has traceable calibration to isotope dilution-mass spectrometry. Refer to KDIGO guidelines for clinical interpretation. In patients with unstable renal function, e.g. those with acute kidney injury, the eGFR may not accurately reflect actual GFR. Performed By: #### 2 4321-2 ####[facility] LABCLIA [id number] [place] [address] [place] Glucose [Mass/Vol] 232 mg/dL High 74-99 [facility] Comment on above: Order Comment: Speci men Type: BLOOD SPECIMENOrdering Facility: [facility] Address: [address] [place] [address] Result Comment: The [place] Diabetes Association (ADA) provides guidance for cutoff values for fasting glucose and random glucose. The ADA defines fasting as no caloric intake for at least 8 hours. Fasting plasma glucose results between 100 to 125 mg/dL indicate increased risk for diabetes (prediabetes). Fasting plasma glucose results greater than or equal to 126 mg/dL meet the criteria for diagnosis of diabetes. In the absence of unequivocal hyperglycemia, results should be confirmed by repeat testing. In a patient with classic symptoms of hyperglycemia or hyperglycemic crisis, random plasma glucose results greater than or equal to 200 mg/dL meet the criteria for diagnosis of diabetes. Reference: Standards of Medical Care in Diabetes 2016, [place] Diabetes Association. Diabetes Care. 2016.39(Suppl 1). Performed By: #### 2 4321-2 ####[facility] LABCLIA [id number] [place] [address] [place] Potassium [Moles/Vol] 4.6 mmol/L Normal 3.7-5.1 [facility] Comment on above: Order Comment: Speci men Type: BLOOD SPECIMENOrdering Facility: [facility] Address: [address] [place] [address] Performed By: #### 2 4321-2 ####[facility] LABCLIA [id number] [place] [address] [place] Sodium [Moles/Vol] 139 mmol/L Normal 136-144 [facility] Comment on above: Order Comment: Speci men Type: BLOOD SPECIMENOrdering Facility: [facility] Address: [address] [place] [address] Performed By: #### 2 4321-2 ####[facility] LABCLIA [id number] [place] [address] [place] Urea nitrogen [Mass/Vol] 18 mg/dL Normal 7-21 [facility] Comment on above: Order Comment: Speci men Type: BLOOD SPECIMENOrdering Facility: [facility] Address: [address] [place] [address] Performed By: #### 2 4321-2 ####[facility] LABCLIA [id number] [place] [address] [place] CBC panel Auto (Bld)on 04-01 Erythrocyte distribution width (RBC) [Ratio] 13.0 % Normal 11.5-15.0 [facility] Comment on above: Order Comment: Speci men Type: BLOOD SPECIMENOrdering Facility: [facility] Address: [address] [place] [address] Performed By: #### 5 8410-2 ####[facility] LABIA [id number] [address] [place] Hematocrit (Bld) [Volume fraction] 36.7 % Normal 36.0-46.0 [facility] Comment on above: Order Comment: Speci men Type: BLOOD SPECIMENOrdering Facility: [facility] Address: [address] [place], [place] [phone] Performed By: #### 5 8410-2 ####[facility] LABIA [id number] [address] [place] Hemoglobin (Bld) [Mass/Vol] 12.0 g/dL Normal 11.5-15.5 [facility] Comment on above: Order Comment: Speci men Type: BLOOD SPECIMENOrdering Facility: [facility] Address: [address] [place], [place] [phone] Performed By: #### 5 8410-2 ####[facility] LABIA [id number] [place] [address] [place] MCH (RBC) [Entitic mass] 30.3 pg Normal 26.0-34.0 [facility] Comment on above: Order Comment: Speci men Type: BLOOD SPECIMENOrdering Facility: [facility] Address: [address] [place], [place] [phone] Performed By: #### 5 8410-2 ####[facility] [id number] [address] STATES [facility] MCHC (RBC) [Mass/Vol] 32.7 g/dL Normal 30.5-36.0 [facility] Comment on above: Order Comment: Speci men Type: BLOOD SPECIMENOrdering Facility: [facility] Address: [address] [place], [place] [phone] Performed By: #### 5 8410-2 ####[facility] [id number] [place] [address] [place] MCV (RBC) [Entitic vol] 92.7 fL Normal 80.0-100.0 [facility] Comment on above: Order Comment: Speci men Type: BLOOD SPECIMENOrdering Facility: [facility] Address: [address] [place], [place] [phone] Performed By: #### 5 8410-2 ####[facility] [id number] [address] [place] Nucleated RBC (Bld) [#/Vol] 10*3/uL Normal <0.01 [facility] Comment on above: Order Comment: Speci men Type: BLOOD SPECIMENOrdering Facility: [facility] Address: [address] [place], [place] [phone] Performed By: #### 5 8410-2 ####[facility] [id number] [place] [address] [place] Platelet mean volume (Bld) [Entitic vol] 10.3 fL Normal 9.0-12.7 [facility] Comment on above: Order Comment: Speci men Type: BLOOD SPECIMENOrdering Facility: [facility] Address: [address] [place], [place] [phone] Performed By: #### 5 8410-2 ####[facility] LABCLIA [id number] [place] [address] [place] Platelets (Bld) [#/Vol] 238 10*3/uL Normal 150-400 [facility] Comment on above: Order Comment: Speci men Type: BLOOD SPECIMENOrdering Facility: [facility] Address: [address] [place] [address] Performed By: #### 5 8410-2 ####[facility] LABIA [id number] [place] [address] [place] RBC (Bld) [#/Vol] 3.96 10*6/uL Normal 3.90-5.20 [facility] Comment on above: Order Comment: Speci men Type: BLOOD SPECIMENOrdering Facility: [facility] Address: [address] [place], [place] [phone] Performed By: #### 5 8410-2 ####[facility] LABIA [id number] [place] [address] [place] WBC (Bld) [#/Vol] 10.32 10*3/uL Normal 3.70-11.00 [facility] Comment on above: Order Comment: Speci men Type: BLOOD SPECIMENOrdering Facility: [facility] Address: [address] [place] [address] Performed By: #### 5 8410-2 ####[facility] LABIA [id number] [place] [id number] [place] CONSULTon 04-01-2022 CONSULT HNO ID: [id number] Author: Seth Montaño MD Service: Physical Medicine AND Rehabilitation Author Type: Physician Type: Consults Filed: 04/01/2022 3:27 PM Note Text: HOSPITAL INITIAL CONSULT: PMANDR SERVICE DATE: 04/01/2022 SERVICE TIME: 1450 REASON FOR CONSULTATION: assessment of rehab service needs Subjective PATIENT'S HOME ADDRESS: [address] [place], [place] [address] [place] [address] HISTORY: Saeed Sarabia is a 81 year old female whose current [facility] admission dates to 03/28/2022. History notes that she was admitted on that date from outside hospital. Ms. Sarabia is being seen at the request of Dr. Sears, the [facility] physician of record. She carries the rehabilitation diagnosis of lumbar polyradiculopathy. Ms Sarabia has history of CAD/PCI, HTN/HL, AF on eliquis, HFpEF, NIDDM, and arthritis. She has had LBP with sciatica for many years, with recent progression. About 2 weeks ago, she developed R foot drop and worsening pain in back and RLE. She had MRI at outside hospital and told she needed surgery; she transferred to [facility] on 03/28. Gabapentin increased but patient unable to tolerate. On 03/31 she underwent L3-5 decompressive laminectomies and L2-S1 root bilateral foraminotomies, dural repair and drain in place. Postop no significant complications noted. Prior to hospitalization, she relates a daily activity level that was independent at the household level with assistive devices She lives with spouse, generally good health; house with ramp and one floor layout . Daughter can assist part-time as well. ALLERGIES No Known Allergies Current Facility-Administere d Medications Medication Dose Route Frequency - sodium chloride 0.9 % (flush) 3-5 mL (BD POSIFLUSH) 3-5 mL INTRAVENOUS q 12 H - NaCl 0.9% iv flush bag 20 mL INTRAVENOUS PRN - gabapentin 100 mg cap(s) (NEURONTIN) 100 mg ORAL TID - rosuvastatin 5 mg tab(s) (CRESTOR) 5 mg ORAL DAILY - metoprolol succinate ER 100 mg tab(s) (TOPROL XL) 100 mg ORAL DAILY - ezetimibe 10 mg tab(s) (ZETIA) 10 mg ORAL DAILY - polyethylene glycol 3350 17 g packet (MIRALAX, GLYCOLAX) 17 g ORAL DAILY - magnesium hydroxide 400 mg/5 mL 30 mL (MOM) 30 mL ORAL/FEEDING TUBE DAILY - [MAR Hold due to Transfer] sodium chloride 0.9 % (flush) 2-10 mL (BD POSIFLUSH) 2-10 mL INTRAVENOUS DIRECTED PRN And - [MAR Hold due to Transfer] perflutren lipid microspheres 1.1 mg/mL 1.3 mL injection (DEFINITY) 1.3 mL INTRAVENOUS DIRECTED PRN - lisinopril 5 mg tab(s) (ZESTRIL, PRINIVIL) 5 mg ORAL/FEEDING TUBE DAILY - [START ON 04/02/2022] heparin 5,000 Units injection 5,000 Units SUBCUTANEOUS q 12 H - spironolactone 12.5 mg tab(s) (ALDACTONE) 12.5 mg ORAL DAILY - aluminum-magnesium hydroxide-simethicon e 200-200-20 mg/5 mL 30 mL (MAALOX,MYLANTA,MAG- AL PLUS) 30 mL ORAL/FEEDING TUBE q 6 H PRN - sodium chloride 0.9 % (flush) 3-5 mL (BD POSIFLUSH) 3-5 mL INTRAVENOUS q 12 H - acetaminophen 650 mg tab(s) (TYLENOL) 650 mg ORAL/FEEDING TUBE q 4 H PRN - docusate sodium 100 mg cap(s) (COLACE) 100 mg ORAL BID - senna 8.6 mg tab(s) (SENOKOT) 8.6 mg ORAL/FEEDING TUBE BID - HYDROmorphone (PF) 0.2 mg injection (DILAUDID) 0.2 mg INTRAVENOUS q 4 H PRN - ondansetron (PF) 4 mg injection (ZOFRAN) 4 mg INTRAVENOUS q 6 H PRN - oxyCODONE IR 5-10 mg tab(s) (ROXICODONE) 5-10 mg ORAL q 4 H PRN - methocarbamol 750 mg tab(s) (ROBAXIN) 750 mg ORAL TID PRN - lidocaine 4 % 2 Patch (SALONPAS) 2 Patch TRANSDERMAL DAILY And - lidocaine patch - REMOVE OTHER AT BEDTIME And - lidocaine - VERIFY PATCH OTHER q 8 H No past medical history on file. No past surgical history on file. Social History Tobacco Use - Smoking status: Not on file - Smokeless tobacco: Not on file Substance Use Topics - Alcohol use: Not on file - Drug use: Not on file No family history on file. ACTIVE PROBLEM LIST Spinal Stenosis Right Leg Weakness Hld (Hyperlipidemia) Foot Drop, Right Foot Atrial Fibrillation (Hcc) Benign Essential Htn Dm Type 2 (Diabetes Mellitus, Type 2) (Hcc) PMANDR REVIEW OF SYSTEMS: General: Weakness: yes , Poor appetite/nutrition none, Fevers none. Skin: Eczema/psoriasis: none, Rashes: none, Open skin or ulcers: HEENT: Vision issues: none, Hearing problems: none Cardiopulmonary: Chest pain: none, SOB: none, Cough: none. Musculoskeletal: Joint surgery: none, Joint swelling none, Spine disease: yes. GI: Constipation: yes, Diarrhea: none, Vomiting: none, Nausea: none. Genitourinary: Claire/SP:yes, Difficulty emptying: NA, Incontinence: NA. Psychiatric: Drug Dependence: none, Depression: none, Anxiety:none. Vascular: Claudication: none, Limb ulcers: none. Hx of DVT: none Endocrine: Diabetes:none, Thyroid disease: none, Weight loss: none. Neuro: Seizures: none, Dysphagia: none, Language impairment: none. Diet: Orders Placed This Encounter DIET REGULAR Objective PHYSICAL THERAPY 6- CLICKS SCORE: PT 6 Clicks Score (more content not included)... Normal [facility] NURSING PROGon 04-01-2022 NURSING PROG HNO ID: [id number] Author: Marina Hicks RN Service: Nursing Author Type: Registered Nurse Type: Nursing Progress Note Filed: 03/31/2022 10:46 PM Note Text: Pt back from PACU with family. Pt has c/o nausea. Pt pale, daughter and at bedside. Paged team to get orders for nausea meds and general med orders re-released. Normal [facility] OPERATIVE NOon 04-01-2022 OPERATIVE NO HNO ID: [id number] Author: Juice Sears MD Service: Neurosurgery Author Type: Physician Type: Operative Report Filed: 04/01/2022 8:29 AM Note Text: OPERATIVE/PROCEDURE REPORT LOG ID: [id number] SURGERY/PROCEDURE DATE: 03/31/2022 - 04/01/2022 INCISION/PROCEDURE START TIME: 5:02 PM INCISION CLOSE/PROCEDURE END TIME: 7:33 PM SURGEON(S)/PROCEDURA LIST(S) AND REGISTRY NP(S): Surgeon(s) and Role: * Juice Sears MD - Primary * Jorge Echols MD - Resident - Assisting * Padmini Trevizo MD - Resident - Assisting No Additional Staff SURGERY/PROCEDURE(S) : L2-5 laminectomy with bilateral foraminotomies of the L2-3-4 5 and S1 nerve roots ANESTHESIA: General SURGERY/PROCEDURE DETAILS: Patient was brought to the operating room and placed under general anesthesia. She was placed prone on the Shaw table. Her lumbar area was sterilely prepped and draped. Incision was marked in the midline extending from L2-S1. Incision was made with a #10 scalpel and carried down to the lumbar fascia. The lumbar fascia was sharply divided. L2-3-4 5 and the top of S1 were exposed. The patient had remarkable degenerative arthritic disease. I removed L2-3-4 and 5 with a combination of hand tools and the high-speed air drill. I then performed foraminotomies of the exiting L2-3-4 5 and S1 nerve roots bilaterally with a 3 and 4 mm punch. I encountered a durotomy at the L5 level however it was intact arachnoid with no CSF leak I therefore elected to place an artificial dural material over it. I did not place a suture. I placed a drain and closed the wound in anatomic layers. PRE-OP/PRE-PROCEDURE DIAGNOSIS: Lumbar stenosis with neurogenic claudication and foot drop POST-OP/POST-PROCEDU RE DIAGNOSIS: Same as Preop ESTIMATED BLOOD LOSS: 400 ml SPECIMENS: None IMPLANTABLE DEVICES: None DRAINS: subfascial COMPLICATIONS: None PARTICIPATION IN SURGERY/PROCEDURE: I/primary surgeon/proceduralis t performed the procedure with assistance. SIGNATURE: Juice Sears MD PATIENT NAME: Saeed Sarabia DATE: April 01, 2022 TIME: 8:26 AM Normal [facility] THERAPY NTon 04-01-2022 THERAPY NT HNO ID: [id number] Author: Sav Narvaez OT/Monik Service: Occupational Therapy Author Type: Occupational Therapist Type: Therapy (PT/OT/Speech/Resp) Filed: 04/01/2022 2:24 PM Note Text: Occupational Therapy Evaluation SERVICE DATE: 04/01/2022 SERVICE TIME: 1335 to 1414 ROOM: [place] [address] Recommended Discharge Disposition: Acute Rehab Recommended Discharge Disposition Due to: Patient requires an active, intensive rehabilitation therapy program due to:;ADL impairment resulting in caregiver dependence;decline in functional status requiring daily skilled care Anticipated Discharge Needs: Physical Assist at Home;Supervision at Home Physical Assist at Home for: Transfers;Ambulation ;Cleaning;Laundry;Sa fety;Shopping;Self Care;Meals;Stairs;Tr ansportation Supervision at Home due to: Decreased safety awareness OT 6 Clicks Score: 17 Precautions/Activity Restrictions: Fall Risk;Spine Current Hospital Course: 03/31 L2-5 laminectomies w arachnoid bleb repaired with tachosil Reason for Hospital Admission: scheduled sx Relevant Past Medical History: RA, DM II, HTN, HLD, CAD s/p stenting, Aifb on Eliquis Response to Therapy Interventions: Good participation in activities, Requires additional time to complete activities Assessment Comments: At this time, pt would benefit from AR stay in order to increase strength, functional mobility and independence required for ADL tasks. Pt with possible progression to home with home OT with continued OT in house. Continue skilled needs due to: Family training required, Functional impairment, Safety concerns Occupational Therapy Problem List: Safety Deficits;Impaired Self Care;Decreased Activity Tolerance;Decreased Range Of Motion;Decreased Strength;Functional Mobility Impairment;Balance Impaired Cognition/Communicat ion Deficits Responsiveness: Alert, Awake Follows Commands: 2-step Commands, Cueing Needed Cueing to Follow Commands: Minimum Cognitive Clinical Tests and Screens: 4AT Screening 4AT Screening Assess alertness (ask patient to state their name and address): Normal (fully alert, but not agitated, throughout assessment) Ask patient: age, date of , current year, and current location: No mistakes Ask patient to tell me the months of the year backwards order, starting with September : Starts but states <7 months / refuses to start Acute change or fluctuating mental status: No 4AT Score: 1 Delirium Positive/Negative: Negative Plan for next visit: Bed mobility, Standing balance, Standing tolerance, Dressing training Home Environment Patient Lives With: Spouse Assistance Available: 24 Hour Entry To Home: Ramp Number Of Stairs To Bed/Bath: 0 Tub/Shower Type: walk in w/ bench; tub shower Laundry: A Equipment Owned: Cane;Rollator;Shower Chair Prior Functional Level: Required Assistance;Within Functional Limits;History of Falls Assistance Required With: Cleaning;Laundry;Elizabeth ls;Self Care;Transportation; Shopping 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 ; shares IADLs w/ ; IND ADLs; - driving (as of last few weeks d/t drop foot); + falls (tripped in bathroom d/t drop foot) Patient Report: I'd like to brush my teeth CURRENT FUNCTIONAL STATUS: Most recent performance Current Activities of Daily Living Assist Level Additional Information Feeding Set Up Grooming Contact Guard Assistance Bathing Upper Body Contact Guard Assistance Bathing Lower Body Moderate Assistance Dressing Upper Body Contact Guard Assistance Dressing Lower Body Moderate Assistance Toileting Minimal Assistance Instrumental Activities of Daily Living Assist Level Additional Information Meal/Beverage Prep Cleaning Laundry Medication Management with Strategies Functional Mobility Assist Level Additional Information Rolling Supine to Sit Sit to Supine Scooting Sit to Stand Minimal Assistance Stand to Sit Minimal Assistance Bed to Chair Toilet/Commode Shower Functional Mobility Minimal Assistance Wheeled Walker Blank mccullough indicate activity not attempted Learning/Educational Needs: Discharge Plan;Equipment;Famil y Education/Training;F unctional Activities/Mobility; Plan of Care;Precautions;Kike abilitation Techniques and Procedures;Self Care;Safety Goals for Plan of Care: Patient /Caregiver Goals: Go Home;Care For Self Goals: Patient will demonstrate understanding of importance of mobility during hospital stay and resolve all self-care, cognitive and/or coping needs identified. Rehab Potential: Excellent Patient will be discontinued from Occupational Therapy when no further skilled needs are identified in this setting. PLAN: TREATMENT INTERVENTIONS: Therapy Diagnosis: Reduced mobility-other;Decre ased activities of daily living (ADL);Muscle Weakness (generalized);Unstea diness on feet;General symptoms and signs-other Interventions Provided: Evaluation;Self Care (more content not included)... Normal [facility] THERAPY NT HNO ID: [id number] Author: River Reyes PT Service: Physical Therapy Author Type: Physical Therapist Type: Therapy (PT/OT/Speech/Resp) Filed: 04/01/2022 2:52 PM Note Text: Physical Therapy Evaluation SERVICE DATE: 04/01/2022 SERVICE TIME: 1152 to 1250 ROOM: [place] [address] Recommended Discharge Disposition: Acute Rehab Recommended Discharge Disposition Comments: Will additionally benifit from orthotics consult for RLE AFO d/t drop foot. May progress to home pending clinical course. Recommended Discharge Disposition Due to: Patient requires an active, intensive rehabilitation therapy program due to:;ADL impairment resulting in caregiver dependence;anticipat e community discharge/previous community dweller;decline in functional status requiring daily skilled care;deficits affecting dominant side;deficits affecting non-dominant side;less than 3/5 weakness noted in:;distal LE;ongoing intervention of multiple therapy disciplines;prosthet ic / orthotic needs Anticipated Discharge Needs: Physical Assist at Home;Supervision at Home Physical Assist at Home for: Transfers;Ambulation ;Cleaning;Laundry;Sa fety;Shopping;Self Care;Meals;Stairs;Tr ansportation Supervision at Home due to: Decreased safety awareness Recommended Discharge Equipment: Orthosis PT 6 Clicks Score: 17 Precautions/Activity Restrictions: Fall Risk;Spine Current Hospital Course: 03/31 L2-5 laminectomies w arachnoid bleb repaired with tachosil Reason for Hospital Admission: scheduled sx Relevant Past Medical History: RA, DM II, HTN, HLD, CAD s/p stenting, Aifb on Eliquis Response to Therapy Interventions: Good participation in activities, Low activity tolerance Assessment Comments: Pt tolerated session well. Improved gait/balance noted with donning of RLE AFO. VC for controlled step length of RLE and staying in good position within FWW throughout. Continue skilled needs due to: Continued monitoring of vital signs during mobility required, Functional mobility/skill impairments, Safety concerns, Family training required Physical Therapy Problem List: Education Deficit;Pain;Safety Deficits;Impaired Self Care;Decreased Activity Tolerance;Decreased Strength;Decreased Range Of Motion;Functional Mobility Impairment;Balance Impaired;Sensory Deficit Treatment Interventions: Education;Self Care / Home Management;Energy Conservation Training;Joint Mobility;Strengtheni ng;Functional Mobility Training;Balance Training;Neuromuscul ar Re-education;Orthoti c Management and Training Plan for next visit: Bed mobility, Gait training, Equipment needed (specify), Sit to Stand Transfers, Standing Balance (R AFO, rollator) Home Environment Patient Lives With: Spouse Assistance Available: 24 Hour Entry To Home: Ramp Number Of Stairs To Bed/Bath: 0 Tub/Shower Type: walk in w/ bench; tub shower Laundry: A Equipment Owned: Cane;Rollator;Shower Chair Prior Functional Level: Required Assistance;Within Functional Limits;History of Falls Assistance Required With: Cleaning;Laundry;Elizabeth ls;Self Care;Transportation; Shopping 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 ; shares IADLs w/ ; IND ADLs; - driving (as of last few weeks d/t drop foot); + falls (tripped in bathroom d/t drop foot) Patient Report: agreeable to PT CURRENT FUNCTIONAL STATUS: Most recent performance Current Functional Mobility Assist Level Additional Information Rolling Minimal Assistance Supine to Sit Minimal Assistance Sit to Supine Scooting Minimal Assistance Sit to Stand Minimal Assistance Stand to Sit Minimal Assistance Bed to Chair Minimal Assistance Bed To Chair Transfer Type: Stepping Bed To Chair Transfer Equipment: Wheeled Walker Toilet/Commode Gait Minimal Assistance Gait Device: Other: See Comment;Wheeled Walker (R AFO) Gait Distance (feet): 4x8' Stairs Curb Step Car Transfer Blank mccullough indicate activity not attempted Gait Deviations Right Lower Extremity: Foot clearance decreased;Heel strike during initial stance decreased;Push off during terminal stance decreased General Deviations/Observati ons: Christal decreased;Difficulty changing direction/turning;Na rrow Base of Support;Non-function al gait speed;Step length decreased;Visual scanning/environment al awareness decreased;Improper distancing from assistive device;UE weight bearing on assistive device excessive JH-HLM: 6: Walk 10 steps or more Learning/Educational Needs: Discharge Plan;Disease Process;Equipment;[facility] Education/Training;F unctional Activities/Mobility; Pain Management;Plan of Care;Changes in Plan of Care;Precautions;PT In-Hospital Exercise Program;Rehabilitati on Techniques and Procedures;Safety Goals for Plan of Care: Patient /Caregiver Goals: Go To Rehab Goals: Patient will demonstrate progress to optimize functional mobility, maximize activity tolerance and endurance to maximize function upon dischar (more content not included)... Normal [facility] ANES PRE-OPon 03-31-2022 ANES PRE-OP HNO ID: [id number] Author: Nawaf Caballero APRN.GEOGRAPHY TEACHER Service: ? Author Type: Nurse Business Travel Consultant Type: Anesthesia Preprocedure Evaluation Filed: 03/31/2022 4:18 PM Note Text: ANESTHESIOLOGY DAY OF SURGERY NOTE : 1940 Procedure Information Anesthesia Start Date/Time: 03/31/22 1617 Procedure: LAMINOTOMY W/DECOMPRESSION NERVE ROOT(S),INCLUDING PARTIAL FACETECTOMY,FORAMINO MIGUEL AND/OR EXCISION HERNIATED DISC; EA ADD'L INTERSPACE,CERVICAL/ LUMBAR (N/A Spine Lumbar) Location: [facility] Surgeons: Juice Sears MD There is no height or weight on file to calculate BMI. Most recent hematocrit and potassium results: Hematocrit 43.1 03/28/2022 Potassium 4.2 03/28/2022 Relevant Problems CARDIO (+) Atrial fibrillation (HCC) (+) Benign essential HTN ENDO (+) DM type 2 (diabetes mellitus, type 2) (HCC) I - PHYSICAL EVALUATION AIRWAY Patient intubated: No. Tracheostomy tube not present Mallampati: I. TM distance: >3 FB. Neck ROM: full ROM without neurological symptoms. Mouth opening: adequate. Short neck: no. Thick neck: no Additional exam findings: no II - ANESTHESIA PLAN ASA Score: 3 Anesthetic Plan: general Airway type: ETT The patient is not a current smoker. NPO Status: adequate Beta Donna Administration of chronic beta donna medication planned. Monitoring plan: standard ASA and invasive hemodynamic monitoring. Monitoring method: arterial Line Postoperative analgesic plan: parenteral or oral opioids. Patient / Surrogate agrees to blood products: blood products not planned No vitals data found for the desired time range. Facility-Administere d Medications as of 03/31/2022 Medication Dose Route Frequency - aluminum-magnesium hydroxide-simethicon e 200-200-20 mg/5 mL 30 mL (MAALOX,MYLANTA,MAG- AL PLUS) 30 mL ORAL/FEEDING TUBE q 6 H PRN - [COMPLETED] lisinopril 5 mg tab(s) (ZESTRIL, PRINIVIL) 5 mg ORAL DAILY - [START ON 04/01/2022] lisinopril 5 mg tab(s) (ZESTRIL, PRINIVIL) 5 mg ORAL/FEEDING TUBE DAILY - [COMPLETED] heparin 5,000 Units injection 5,000 Units SUBCUTANEOUS q 12 H - [START ON 04/02/2022] heparin 5,000 Units injection 5,000 Units SUBCUTANEOUS q 12 H - NaCl 0.9% iv infusion 75 mL/hr INTRAVENOUS CONTINUOUS - [COMPLETED] sodium phosphate-sodium bisphosphate 133 mL enema (FLEET) 133 mL RECTAL ONCE - [START ON 04/01/2022] spironolactone 12.5 mg tab(s) (ALDACTONE) 12.5 mg ORAL DAILY - polyethylene glycol 3350 17 g packet (MIRALAX, GLYCOLAX) 17 g ORAL DAILY - senna 8.6 mg tab(s) (SENOKOT) 8.6 mg ORAL/FEEDING TUBE BID - magnesium hydroxide 400 mg/5 mL 30 mL (MOM) 30 mL ORAL/FEEDING TUBE DAILY - [COMPLETED] bumetanide 0.5 mg tab(s) (BUMEX) 0.5 mg ORAL DAILY - sodium chloride 0.9 % (flush) 2-10 mL (BD POSIFLUSH) 2-10 mL INTRAVENOUS DIRECTED PRN And - perflutren lipid microspheres 1.1 mg/mL 1.3 mL injection (DEFINITY) 1.3 mL INTRAVENOUS DIRECTED PRN - sodium chloride 0.9 % (flush) 3-5 mL (BD POSIFLUSH) 3-5 mL INTRAVENOUS q 12 H - NaCl 0.9% iv flush bag 20 mL INTRAVENOUS PRN - oxyCODONE IR 5-10 mg tab(s) (ROXICODONE) 5-10 mg ORAL q 3 H PRN - acetaminophen 325-650 mg tab(s) (TYLENOL) 325-650 mg ORAL q 4 H PRN - ondansetron orally disintegrating 4 mg tab(s) (ZOFRAN ODT) 4 mg ORAL q 6 H PRN Or - ondansetron (PF) 4 mg injection (ZOFRAN) 4 mg INTRAVENOUS q 6 H PRN - gabapentin 100 mg cap(s) (NEURONTIN) 100 mg ORAL TID - rosuvastatin 5 mg tab(s) (CRESTOR) 5 mg ORAL DAILY - metoprolol succinate ER 100 mg tab(s) (TOPROL XL) 100 mg ORAL DAILY - ezetimibe 10 mg tab(s) (ZETIA) 10 mg ORAL DAILY - tiZANidine 4 mg tab(s) (ZANAFLEX) 4 mg ORAL AT BEDTIME Outpatient Medications as of 03/31/2022 Medication Sig - bumetanide (BUMEX) 1 mg tablet Take 0.5-1 mg by mouth once daily as needed (edema). - celecoxib (CELEBREX) 200 mg capsule Take 200 mg by mouth once daily as needed for pain (arthritis). - gabapentin (NEURONTIN) 100 mg capsule Take 100 mg by mouth three times daily. - apixaban (ELIQUIS) 5 mg tab(s) Take by mouth twice daily. - ezetimibe (ZETIA) 10 mg tablet Take 10 mg by mouth once daily. - lisinopril (ZESTRIL, PRINIVIL) 5 mg tablet Take 5 mg by mouth once daily. - metoprolol succinate ER (TOPROL XL) 100 mg Take 100 mg by mouth once daily. - tiZANidine (ZANAFLEX) 4 mg tablet Take 4 mg by mouth daily at bedtime. - rosuvastatin (CRESTOR) 5 mg tablet Take 5 mg by mouth once daily. - metFORMIN (GLUCOPHAGE) 1,000 mg tablet Take 1,000 mg by mouth twice daily with meals. - glipiZIDE (GLUCOTROL) 5 mg tablet Take 5 mg by mouth twice daily before meals. - spironolactone (ALDACTONE) 25 mg tablet Take 12.5 mg by mouth once daily. I have interviewed and examined the patient. I have reviewed the medical record and/or the pre-anesthesia evaluation, pertinent labs, and test results. This contains updated information obtained within 48 hours of Surgery/Procedure. SIGNATURE: Nawaf Caballero APRN.C (more content not included)... [facility] BRIEF OP NOTon 03-31-2022 BRIEF OP NOT HNO ID: [id number] Author: Jorge Echols MD Service: Neurosurgery Author Type: Resident Type: Brief Op Note Filed: 03/31/2022 7:19 PM Note Text: BRIEF OPERATIVE / PROCEDURE NOTE LOG ID: [id number] SURGERY/PROCEDURE DATE: 03/31/2022 INCISION/PROCEDURE START TIME: 5:02 PM INCISION CLOSE/PROCEDURE END TIME: SURGEON(S)/PROCEDURA LIST(S) AND REGISTRY NP(S): Surgeon(s) and Role: * Juice Sears MD - Primary * Jorge Echols MD - Resident - Assisting * Padmini Trevizo MD - Resident - Assisting No Additional Staff SURGERY/PROCEDURE(S) : L3-5 decompressive laminectomies ANESTHESIA: General FINDINGS: Satisfactory decompression ESTIMATED BLOOD LOSS: 400 mls SPECIMENS: None COMPLICATIONS: None PRE-OP/PRE-PROCEDURE DIAGNOSIS: Lumbar stenosis POST-OP/POST-PROCEDU RE DIAGNOSIS: Same as Preop SIGNATURE: Jorge Echols MD PATIENT NAME: Saeed Sarabia DATE: March 31, 2022 TIME: 7:18 PM [facility] THERAPY NTon 03-31-2022 THERAPY NT HNO ID: [id number] Author: Maria Del Rosarioshavonne Tatum OT/Monik Service: Occupational Therapy Author Type: Occupational Therapist Type: Therapy (PT/OT/Speech/Resp) Filed: 03/31/2022 10:50 AM Note Text: OCCUPATIONAL THERAPY MISSED VISIT SERVICE DATE: 03/31/2022 SERVICE TIME: 1049 to 1049 ROOM: [place] [address] Patient not seen due to Hold: Pre-operative Consult. Plan for OR today 03/31, OT to follow up post-op. SIGNATURE: Maria Del Rosario Tatum OT/Monik PATIENT NAME: Saeed Sarabia DATE: March 31, 2022 TIME: 10:50 AM [facility] THERAPY NT HNO ID: [id number] Author: Janee Abdul PT Service: Physical Therapy Author Type: Physical Therapist Type: Therapy (PT/OT/Speech/Resp) Filed: 03/31/2022 8:20 AM Note Text: PHYSICAL THERAPY MISSED VISIT SERVICE DATE: 03/31/2022 SERVICE TIME: 0819 to 0819 ROOM: [place] [address] Patient not seen due to Surgery. Per chart, plan for OR today. PT to follow up post-op. SIGNATURE: Janee Abdul PT PATIENT NAME: Saeed Sarabia DATE: March 31, 2022 TIME: 8:20 AM [facility] XR VERIFY LEVEL [id number] 03-31-2022 XR VERIFY LEVEL L-SPINE-NB * * *Final Report* * * DATE OF EXAM: Mar 31 2022 5:24PM ESX [id number] - XR VERIFY LEVEL L-SPINE-NB / PROCEDURE REASON: OR 15 * * * * Physician Interpretation * * * * HISTORY: OR 15. TECHNIQUE: XR VERIFY LEVEL L-SPINE-NB Laterality: Not applicable Number of different views (projections): 1 COMPARISON: Outside radiographs dated 02/11/2022 RESULT: Single lateral view of the lumbar spine showing a clamp projecting the region of L3 spinous process and a probe with tip projecting the region of L3 pars interarticulares. COMMUNICATION: Communicated with Dr. Sears on 03/31/2022 at 5:27 PM via phone conversation and [employer]. IMPRESSION: Intraoperative spinal localization. Vineyard Tender: ROSS Transcribe Date/Time: Mar 31 2022 5:25P Dictated by : DEEDEE LYNN MD This examination was interpreted and the report reviewed and electronically signed by: DEEDEE LYNN MD on Mar 31 2022 5:28PM EST [id number] [facility] CONFIRM BLOOD TYPEon 022 ABO O [facility] Comment on above: Order Comment: Speci men Type: BLOOD SPECIMENOrdering Facility: [facility] Address: [address] [place] [address] Performed By: #### C ONABO ####[facility] BLOOD BANKIA [id number] [place] [address] [place] Rh Nom (Bld) Positive [facility] Comment on above: Order Comment: Speci men Type: BLOOD SPECIMENOrdering Facility: [facility] Address: [address] [place] [address] Performed By: #### C ONABO ####[facility] [id number] [place] [address] [place] HCG Preg Ur Qlon 03-30-2022 HCG ( test) Ql (U) Negative Normal Negative [facility] Comment on above: Order Comment: Speci men Type: URINE SPECIMENOrdering Facility: [facility] Address: [address] [place] [address] Result Comment: This test is intended to aid in the early detection of . Very dilute urine samples, as indicated by a low specific gravity, may not contain airport representative levels of hCG. This test detects intact hCG only. This test does not reliably detect hCG degradation products, including free-beta subunit and beta-core fragment. Therefore, this test may show reduced reactivity in urine after 8 weeks gestation. A number of conditions other than , including trophoblastic disease and certain non-trophoblastic neoplasms cause elevated levels of hCG. As with any assay employing mouse antibodies, the possibility exists for interference by human anti-mouse antibodies (HAMA) in the specimen. The test provides a presumptive diagnosis for . Performed By: #### 2 106-3 ####[facility] LABCLIA [id number] [place] [id number] [facility] THERAPY NTon 03-30-2022 THERAPY NT HNO ID: [id number] Author: Radha Miller OT/L Service: Occupational Therapy Author Type: Occupational Therapist Type: Therapy (PT/OT/Speech/Resp) Filed: 03/30/2022 8:50 AM Note Text: OCCUPATIONAL THERAPY MISSED VISIT SERVICE DATE: 03/30/2022 SERVICE TIME: 0850 to 0850 ROOM: [place] [address] Patient not seen due to Hold: Pre-operative Consult. Per chart, plan for OR 03/31. OT to follow up post-op. SIGNATURE: Radha Miller OT/L PATIENT NAME: Saeed Sarabia DATE: March 30, 2022 TIME: 8:50 AM [facility] THERAPY NT HNO ID: [id number] Author: Janee Abdul PT Service: Physical Therapy Author Type: Physical Therapist Type: Therapy (PT/OT/Speech/Resp) Filed: 03/30/2022 7:51 AM Note Text: PHYSICAL THERAPY MISSED VISIT SERVICE DATE: 03/30/2022 SERVICE TIME: 0750 to 0750 ROOM: [place] [address] Patient not seen due to Hold: Pre-operative Consult. Per chart, plan for OR 03/31. PT to follow up post-op. SIGNATURE: Janee Abdul PT PATIENT NAME: Saeed Sarabia DATE: March 30, 2022 TIME: 7:50 AM [facility] VDUVLSon 03-30-2022 VDUVLS Non-Invasive Vascular Laboratory [facility] J35 Lower Extremity Venous Duplex Bilateral/Complete Date of service/time: 03/30/2022 3:45:51 PM Name: SAEED SARABIA Date of : 1940 Age: 81 years Gender: F Clinical Indication Hospital transfer protocol. TECHNIQUE -------- A venous duplex ultrasound examination was performed, including grayscale imaging with compression maneuvers and color Doppler and spectral Doppler examination with augmentation maneuvers and response to respiration of the below mentioned veins. FINDINGS -------- RIGHT SIDE Distal external iliac vein Doppler: normal flow. Compression: normal. Common femoral vein Doppler: normal flow. Compression: normal. Femoral vein Doppler: normal flow. Compression: normal. Popliteal vein Doppler: normal flow. Compression: normal. Posterior tibial veins Compression: normal. Peroneal veins Compression: normal. Great saphenous vein Compression: normal. Small saphenous vein Compression: normal. LEFT SIDE Distal external iliac vein Doppler: normal flow. Compression: normal. Common femoral vein Doppler: normal flow. Compression: normal. Femoral vein Doppler: normal flow. Compression: normal. Popliteal vein Doppler: normal flow. Compression: normal. Posterior tibial veins Compression: normal. Peroneal veins Compression: normal. Great saphenous vein Compression: normal. Small saphenous vein Compression: normal. IMPRESSION RIGHT SIDE - DEEP VEINS Negative for acute deep vein thrombosis. LEFT SIDE - DEEP VEINS Negative for acute deep vein thrombosis. Technologist: Rigo Segundo T Ordering physician: FANNIE BLANDON Interpreting physician: Britney Ewing MD, RPVI Final [id number]. [id number] [email or web address] See Link below for Image [facility] Bacteria Ur Culton 2 Bacteria identified Cx Nom (U) ORGANISM ID: 1 10,000 -<50,000 CFU/ml Mixed microbiota [facility] Comment on above: Performed By: #### 6 30-4 #### [facility] LAB CLIA [id number] [address] [place] [address] [place] CONSULTon 03-29-2022 CONSULT HNO ID: [id number] Author: Martin Vazquez MD Service: General Internal Medicine Author Type: Physician Type: Consults Filed: 03/30/2022 4:02 PM Note Text: INTERNAL MEDICINE INITIAL CONSULT SERVICE DATE: 03/29/2022 SERVICE TIME: 3.29 PM REASON FOR CONSULT: Preoperative Evlautaion REQUESTING PHYSICIAN: Dr. Sears PRIMARY CARE PHYSICIAN: No primary care provider on file. Subjective HISTORY OF PRESENT ILLNESS: Ms. Sarabia is a 81 year old female who presents for decompression laminotomy. We are consulted for preoperative evaluation. No past medical history on file. No past surgical history on file. No family history on file. Social History Tobacco Use - Smoking status: Not on file - Smokeless tobacco: Not on file Substance Use Topics - Alcohol use: Not on file - Drug use: Not on file bumetanide (BUMEX) 1 mg tablet, Take 0.5-1 mg by mouth once daily as needed (edema). , Disp: , Rfl: celecoxib (CELEBREX) 200 mg capsule, Take 200 mg by mouth once daily as needed for pain (arthritis). , Disp: , Rfl: gabapentin (NEURONTIN) 100 mg capsule, Take 100 mg by mouth three times daily., Disp: , Rfl: apixaban (ELIQUIS) 5 mg tab(s), Take by mouth twice daily., Disp: , Rfl: ezetimibe (ZETIA) 10 mg tablet, Take 10 mg by mouth once daily., Disp: , Rfl: lisinopril (ZESTRIL, PRINIVIL) 5 mg tablet, Take 5 mg by mouth once daily., Disp: , Rfl: metoprolol succinate ER (TOPROL XL) 100 mg, Take 100 mg by mouth once daily., Disp: , Rfl: tiZANidine (ZANAFLEX) 4 mg tablet, Take 4 mg by mouth daily at bedtime., Disp: , Rfl: rosuvastatin (CRESTOR) 5 mg tablet, Take 5 mg by mouth once daily., Disp: , Rfl: metFORMIN (GLUCOPHAGE) 1,000 mg tablet, Take 1,000 mg by mouth twice daily with meals. , Disp: , Rfl: glipiZIDE (GLUCOTROL) 5 mg tablet, Take 5 mg by mouth twice daily before meals., Disp: , Rfl: spironolactone (ALDACTONE) 25 mg tablet, Take 12.5 mg by mouth once daily., Disp: , Rfl: Current Facility-Administere d Medications Medication Dose Route Frequency - sodium chloride 0.9 % (flush) 3-5 mL (BD POSIFLUSH) 3-5 mL INTRAVENOUS q 12 H - NaCl 0.9% iv flush bag 20 mL INTRAVENOUS PRN - oxyCODONE IR 5-10 mg tab(s) (ROXICODONE) 5-10 mg ORAL q 3 H PRN - acetaminophen 325-650 mg tab(s) (TYLENOL) 325-650 mg ORAL q 4 H PRN - ondansetron orally disintegrating 4 mg tab(s) (ZOFRAN ODT) 4 mg ORAL q 6 H PRN Or - ondansetron (PF) 4 mg injection (ZOFRAN) 4 mg INTRAVENOUS q 6 H PRN - gabapentin 100 mg cap(s) (NEURONTIN) 100 mg ORAL TID - rosuvastatin 5 mg tab(s) (CRESTOR) 5 mg ORAL DAILY - lisinopril 5 mg tab(s) (ZESTRIL, PRINIVIL) 5 mg ORAL DAILY - metoprolol succinate ER 100 mg tab(s) (TOPROL XL) 100 mg ORAL DAILY - ezetimibe 10 mg tab(s) (ZETIA) 10 mg ORAL DAILY - spironolactone 12.5 mg tab(s) (ALDACTONE) 12.5 mg ORAL DAILY - tiZANidine 4 mg tab(s) (ZANAFLEX) 4 mg ORAL AT BEDTIME - polyethylene glycol 3350 17 g packet (MIRALAX, GLYCOLAX) 17 g ORAL DAILY - senna 8.6 mg tab(s) (SENOKOT) 8.6 mg ORAL/FEEDING TUBE BID - magnesium hydroxide 400 mg/5 mL 30 mL (MOM) 30 mL ORAL/FEEDING TUBE DAILY - [START ON 03/30/2022] bumetanide 0.5 mg tab(s) (BUMEX) 0.5 mg ORAL DAILY - sodium chloride 0.9 % (flush) 2-10 mL (BD POSIFLUSH) 2-10 mL INTRAVENOUS DIRECTED PRN And - perflutren lipid microspheres 1.1 mg/mL 1.3 mL injection (DEFINITY) 1.3 mL INTRAVENOUS DIRECTED PRN ALLERGIES No Known Allergies COMPLETE REVIEW OF SYSTEMS: GENERAL: No weight loss, malaise or fevers RESPIRATORY: Negative for cough, hemoptysis, wheezing, COPD, dyspnea or shortness of breath CARDIOVASCULAR: Negative for chest pain, leg swelling, hypertension, CHF or palpitations GI: No nausea, vomiting, or diarrhea MUSCULOSKELETAL: Negative for joint pain or swelling, back pain or muscle pain ENDOCRINE: Negative for cold or heat intolerance, polyuria, polydipsia and goiter NEURO: No history of headaches, syncope, paralysis, seizures or tremors B/l leg weakness; currently non-ambulatory Objective PHYSICAL EXAM: Patient Vitals for the past 24 hrs: BP Temp Temp src Pulse Resp SpO2 03/29/22 1406 146/80 36.7 ?C (98.1 ?F) Oral 70 18 94 % 03/29/22 0903 126/61 36.6 ?C (97.9 ?F) Oral 65 20 95 % 03/29/22 0536 148/70 36.7 ?C (98.1 ?F) Oral 66 16 96 % 03/29/22 0212 149/67 36.7 ?C (98.1 ?F) Oral 71 16 95 % 03/28/22 2320 ? ? ? 74 ? 95 % 03/28/22 2319 179/73 36.7 ?C (98.1 ?F) Oral 73 16 93 % 03/28/22 2110 165/95 36.7 ?C (98.1 ?F) Oral 76 16 97 % 03/28/22 1721 145/70 36.7 ?C (98.1 ?F) Oral 69 17 96 % There is no height or weight on file to calculate BMI. GENERAL: Healthy, alert, no distress, cooperative, Smiling SKIN: Skin color, texture, turgor normal. No rashes or lesions. OROPHARYNX: Lips, mucosa, and tongue are normal.Teeth and gums, normal. Oropharynx normal. NECK: No jugulovenous distention, No carotid bruits, Carotid pulse normal contour, Supple LUNGS: Lungs clear to auscultation. Go (more content not included)... [facility] ECHOon 03-29-2022 Echocardiography Echocardiography Report: Transthoracic Echo [facility] Bedside Date of service: 03/29/2022 3:52:48 PM SELLING SPECIALIST Ordering physician: FANNIE BLANDON Indication: CAD Technologist: Amaris Madison [facility] Interpreting physician: Dorita Cesar MD PATIENT: Name: SAEED SARABIA : 1940 Age: 81 years Gender: F History of diabetes mellitus, hypertension, dyslipidemia, coronary artery disease, arrhythmia and heart failure with hospitalization. Primary rhythm: sinus. Height: 167.64 cm BSA: 1.94 m? Weight: 81.19 kg BMI: 28.9 kg/m? Heart rate 66 bpm Blood pressure 146/80 mmHg Color Doppler was utilized to interrogate the cardiac valves assessed and spectral Doppler was utilized to determine the flow velocities and pressure gradients reported in this exam. MEASUREMENTS: Value Indexed Normal Max aortic dimension 2.9 cm Ao < 3.8 Left atrium diameter 3.6 cm (M-Mode) Left atrial volume 42 ml (biplane A-L) 22 ml/m? Mame <= 34 LV stroke volume 40 ml (2D biplane) LV end diastolic volume 62 ml (2D biplane) 32.0 ml/m? 29<=EDVi<62 LV end systolic volume 23 ml (2D biplane) 11.6 ml/m? Ejection Fraction 64 % (2D biplane) EF > 54 FINDINGS: LEFT VENTRICLE The left ventricle is normal in size. Left ventricular systolic function is normal. Grade I left ventricular diastolic dysfunction. Mitral annular lateral E/e': 8.7. Mitral annular septal E/e': 11.2. Wall Motion: All scored segments are normal. RIGHT VENTRICLE The right ventricle is normal in size. Right ventricular systolic function is normal. RV systolic tissue Doppler velocity is 9.0 cm/s. Estimated right ventricular systolic pressure is 32 mmHg consistent with normal pulmonary artery pressures. Estimated right atrial pressure is 3 mmHg based on IVC assessment. LEFT ATRIUM The left atrial cavity is normal in size. RIGHT ATRIUM The right atrial cavity is normal in size. Inferior Vena Cava: The inferior vena cava appears normal measuring 1.5 cm. The vessel decreases greater than 50 percent with inspiration. MITRAL VALVE There is moderate mitral annular calcification observed posterior. There is trace mitral valve regurgitation. There is mild thickening. The peak mitral valve gradient is 8 mmHg. The mean mitral valve gradient is 2 mmHg. The pressure half time is 81 msec. The peak mitral E/A ratio is 0.70. The average mitral E/e' ratio is 9.9. The mitral flow deceleration time is 279 msec. TRICUSPID VALVE There is mild (1+ - 2+) tricuspid valve regurgitation. There is no thickening. AORTIC VALVE There is trace aortic valve regurgitation. Tricuspid aortic valve. There is mild thickening. The peak gradient is 9 mmHg (peak velocity = 153.6 cm/s). PULMONIC VALVE There is trace pulmonic valve regurgitation. There is thickening. AORTA The visualized aorta is normal in size. Measurements - Mid ascending aorta 2.9 cm. PULMONARY ARTERIES The pulmonary arteries are normal. PERICARDIUM There is no pericardial effusion. There is an epicardial fat pad. CONCLUSIONS: - Exam indication: CAD - The left ventricle is normal in size. Left ventricular systolic function is normal. EF = 64 ? 5% (2D biplane) - The right ventricle is normal in size. Right ventricular systolic function is normal. -No significant valvular abnormalities. - The patient has not had a prior echocardiographic exam for comparison. * * * Final * * * [id number]. [id number] ynamicsSISUID [facility] URINALYSIS, DIPSTICK ONLYon 03-29-2022 Bilirubin Ql (U) Negative Normal Negative [facility] Comment on above: Order Comment: Speci men Type: URINE SPECIMENOrdering Facility: [facility] Address: [address] [place] [address] Performed By: #### U A ####[facility] [id number] [place] [address] [place] Clarity (Unsp spec) Clear Normal Clear [facility] Comment on above: Order Comment: Speci men Type: URINE SPECIMENOrdering Facility: [facility] Address: [address] [place] [address] Performed By: #### U A ####[facility] [id number] [place] [address] [place] Color (U) Light Yellow Normal Yellow [facility] Comment on above: Order Comment: Speci men Type: URINE SPECIMENOrdering Facility: [facility] Address: [address] [place] [address] Performed By: #### U A ####[facility] LABCLIA [id number] [place] [address] [place] Glucose Test strip (U) [Mass/Vol] Negative Normal Negative [facility] Comment on above: Order Comment: Speci men Type: URINE SPECIMENOrdering Facility: [facility] Address: [address] [place], [place] [id number] Performed By: #### U A ####[facility] LABCLIA [id number] [place] [address] [place] Hemoglobin Ql (U) Negative Normal Negative [facility] Comment on above: Order Comment: Speci men Type: URINE SPECIMENOrdering Facility: [facility] Address: [address] [place], [place] [id number] Performed By: #### U A ####[facility] LABCLIA [id number] [address] [place] Ketones Ql (U) Negative Normal Negative [facility] Comment on above: Order Comment: Speci men Type: URINE SPECIMENOrdering Facility: [facility] Address: [address] [place], [place] [id number] Performed By: #### U A ####[facility] LABCLIA [id number] [address] Leukocyte esterase Test strip Ql (U) Negative Normal Negative [facility] Comment on above: Order Comment: Speci men Type: URINE SPECIMENOrdering Facility: [facility] Address: [address] [place] [id number] Performed By: #### U A ####[facility] LABCLIA [id number] [place] [address] [place] Nitrite Ql (U) Negative Normal Negative [facility] Comment on above: Order Comment: Speci men Type: URINE SPECIMENOrdering Facility: [facility] Address: [address] [place], [place] [phone] Performed By: #### U A ####[facility] LABIA [id number] [place] [address] [place] pH (U) 6.0 [pH] Normal 5.0-8.0 [facility] Comment on above: Order Comment: Speci men Type: URINE SPECIMENOrdering Facility: [facility] Address: [address] [place] [address] Performed By: #### U A ####[facility] LABIA [id number] [place] [address] [place] Protein (U) [Mass/Vol] Negative Normal Negative [facility] Comment on above: Order Comment: Speci men Type: URINE SPECIMENOrdering Facility: [facility] Address: [address] [place] [address] Performed By: #### U A ####[facility] [id number] [address] [place] Specific gravity (U) [Rel density] 1.017 Normal 1.005-1.030 [facility] Comment on above: Order Comment: Speci men Type: URINE SPECIMENOrdering Facility: [facility] Address: [address] [place] [address] Performed By: #### U A ####[facility] [id number] [place] [address] [place] Urobilinogen Ql (U) Negative Normal Negative [facility] Comment on above: Order Comment: Speci men Type: URINE SPECIMENOrdering Facility: [facility] Address: [address] [place] [address] Performed By: #### U A ####[facility] LABIA [id number] [place] [address] [place] Urine culture routineOrdered By: Kieran Scott on 06-21-2022 Bacteria identified Cx Nom (U) 2 Days [facility] Albumin [Mass/volume] in Ser um or PlasmaOrdered By: Kieran Scott on 03-28-2022 Albumin [Mass/Vol] 2.8 g/dL 3.2-5.5 [facility] Basic metabolic 2000 panelon 03-28-2022 Anion gap [Moles/Vol] 10 mmol/L Normal 9-18 [facility] Comment on above: Order Comment: Speci men Type: BLOOD SPECIMENOrdering Facility: [facility] Address: [address] [place] [address] Performed By: #### 1 988-5, 50311-3 ####[facility] LABCLIA [id number] [place] [address] [place] Calcium [Mass/Vol] 9.4 mg/dL Normal 8.5-10.2 [facility] Comment on above: Order Comment: Speci men Type: BLOOD SPECIMENOrdering Facility: [facility] Address: [address] [place] [address] Performed By: #### 1 988-5, 88365-0 ####[facility] LABCLIA [id number] [place] [address] [place] Chloride [Moles/Vol] 105 mmol/L Normal 97-105 [facility] Comment on above: Order Comment: Speci men Type: BLOOD SPECIMENOrdering Facility: [facility] Address: [address] [place], [place] [phone] Performed By: #### 1 988-5, 60370-9 ####[facility] LABCLIA [id number] [place] [address] [place] CO2 [Moles/Vol] 24 mmol/L Normal 22-30 [facility] Comment on above: Order Comment: Speci men Type: BLOOD SPECIMENOrdering Facility: [facility] Address: [address] [place], [place] [phone] Performed By: #### 1 988-5, 49672-7 ####[facility] LABIA [id number] [address] [address] [place] Creatinine [Mass/Vol] 0.72 mg/dL Normal 0.58-0.96 [facility] Comment on above: Order Comment: Akilah nieto Type: BLOOD SPECIMENOrdering Facility: [facility] Address: [address] [place] [address] Performed By: #### 1 988-5, 92511-5 ####[facility] LABIA [id number] [place] [address] [place] ESTIMATED GLOMERULAR FILTRATION RATE 84 mL/min/1.73m??? Normal >=60 [facility] Comment on above: Order Comment: Akilah nieto Type: BLOOD SPECIMENOrdering Facility: [facility] Address: [address] [place] [address] Result Comment: Roz mated Glomerular Filtration Rate (eGFR) is calculated using the 2020 CKD-EPI creatinine equation. This equation utilizes serum creatinine, sex, and age as parameters. The creatinine assay has traceable calibration to isotope dilution-mass spectrometry. Refer to KDIGO guidelines for clinical interpretation. In patients with unstable renal function, e.g. those with acute kidney injury, the eGFR may not accurately reflect actual GFR. Performed By: #### 1 988-5, 50978-6 ####[facility] LABIA [id number] [place] [address] [place] Glucose [Mass/Vol] 209 mg/dL High 74-99 [facility] Comment on above: Order Comment: Akilah nieto Type: BLOOD SPECIMENOrdering Facility: [facility] Address: [address] [address] Result Comment: The [place] Diabetes Association (ADA) provides guidance for cutoff values for fasting glucose and random glucose. The ADA defines fasting as no caloric intake for at least 8 hours. Fasting plasma glucose results between 100 to 125 mg/dL indicate increased risk for diabetes (prediabetes). Fasting plasma glucose results greater than or equal to 126 mg/dL meet the criteria for diagnosis of diabetes. In the absence of unequivocal hyperglycemia, results should be confirmed by repeat testing. In a patient with classic symptoms of hyperglycemia or hyperglycemic crisis, random plasma glucose results greater than or equal to 200 mg/dL meet the criteria for diagnosis of diabetes. Reference: Standards of Medical Care in Diabetes 2016, [place] Diabetes Association. Diabetes Care. 2016.39(Suppl 1). Performed By: #### 1 988-5, 71412-7 ####[facility] LABCLIA [id number] [place] [address] [place] Potassium [Moles/Vol] 4.2 mmol/L Normal 3.7-5.1 [facility] Comment on above: Order Comment: Akilah nieto Type: BLOOD SPECIMENOrdering Facility: [facility] Address: [address] [place] [address] Performed By: #### 1 988-5, 52696-6 ####[facility] LABCLIA [id number] [place] [address] [place] Sodium [Moles/Vol] 139 mmol/L Normal 136-144 [facility] Comment on above: Order Comment: Akilah nieto Type: BLOOD SPECIMENOrdering Facility: [facility] Address: [address] [place] [address] Performed By: #### 1 988-5, 46673-6 ####[facility] LABCLIA [id number] [place] [address] [place] Urea nitrogen [Mass/Vol] 21 mg/dL Normal 7-21 [facility] Comment on above: Order Comment: Speci men Type: BLOOD SPECIMENOrdering Facility: [facility] Address: [address] [place], [place] [phone] Performed By: #### 1 988-5, 21548-3 ####[facility] LABCLIA [id number] [place] [address] [place] Basophils Auto (Bld) [#/Vol] Ordered By: Kieran Scott on 03-28-2022 Basophils (Bld) [#/Vol] 0.0 10*3/uL 0.0-0.2 [facility] Basophils/100 WBC Auto (Bld) Ordered By: Kieran Tyler on 03-28-2022 Basophils/100 WBC (Bld) 0.6 % . [facility] Blood hemoglobin measurement (mass/volume)Ordered By: Kieran Benjaminmood on 03-28-2022 Hemoglobin (Bld) [Mass/Vol] 13.1 g/dL 11.8-15.4 [facility] Blood leukocytes automated c ount (number/volume)Ordered By: Kieran Scott on 03-28-2022 WBC (Bld) [#/Vol] 7.1 10*3/uL 4.5-11.0 [facility] CBC W Auto Differential pane l (Bld)on 03-28-2022 Basophils (Bld) [#/Vol] 10*3/uL Normal <0.11 [facility] Comment on above: Order Comment: Speci men Type: BLOOD SPECIMENOrdering Facility: [facility] Address: [address] [place] [address] Performed By: #### 5 7021-8 ####[facility] LABCLIA [id number] [address] [place] Basophils/100 WBC (Bld) 0.2 % Normal [facility] Comment on above: Order Comment: Speci men Type: BLOOD SPECIMENOrdering Facility: [facility] Address: [address] [address] Performed By: #### 5 7021-8 ####[facility] LABCLIA [id number] [place] [address] [place] Differential cell count method Nom (Bld) Auto Normal [facility] Comment on above: Order Comment: Speci men Type: BLOOD SPECIMENOrdering Facility: [facility] Address: [address] Performed By: #### 5 7021-8 ####[facility] LABCLIA [id number] [place] [address] [place] Eosinophils (Bld) [#/Vol] 0.21 10*3/uL Normal <0.46 [facility] Comment on above: Order Comment: Speci men Type: BLOOD SPECIMENOrdering Facility: [facility] Address: [address] [place] [address] Performed By: #### 5 7021-8 ####[facility] LABCLIA [id number] [place] [address] [place] Eosinophils/100 WBC (Bld) 2.5 % Normal [facility] Comment on above: Order Comment: Speci men Type: BLOOD SPECIMENOrdering Facility: [facility] Address: [address] [place] [address] Performed By: #### 5 7021-8 ####[facility] LABIA [id number] [place] [address] [place] Erythrocyte distribution width (RBC) [Ratio] 13.0 % Normal 11.5-15.0 [facility] Comment on above: Order Comment: Speci men Type: BLOOD SPECIMENOrdering Facility: [facility] Address: [address] [place] [address] Performed By: #### 5 7021-8 ####[facility] LABCLIA [id number] [place] [address] [place] Hematocrit (Bld) [Volume fraction] 43.1 % Normal 36.0-46.0 [facility] Comment on above: Order Comment: Speci men Type: BLOOD SPECIMENOrdering Facility: [facility] Address: [address] [place] [address] Performed By: #### 5 7021-8 ####[facility] LABIA [id number] [place] [address] [place] Hemoglobin (Bld) [Mass/Vol] 14.0 g/dL Normal 11.5-15.5 [facility] Comment on above: Order Comment: Speci men Type: BLOOD SPECIMENOrdering Facility: [facility] Address: [address] [place], [place] [phone] Performed By: #### 5 7021-8 ####[facility] LABCLIA [id number] [address] [place] IMMATURE GRAN % 0.4 % Normal [facility] Comment on above: Order Comment: Speci men Type: BLOOD SPECIMENOrdering Facility: [facility] Address: [address] [place], [place] [phone] Performed By: #### 5 7021-8 ####[facility] LABIA [id number] [address] [place] IMMATURE GRAN ABS 0.03 k/uL Normal <0.10 [facility] Comment on above: Order Comment: Speci men Type: BLOOD SPECIMENOrdering Facility: [facility] Address: [address] [place], [place] [phone] Performed By: #### 5 7021-8 ####[facility] LABIA [id number] [address] [place] Lymphocytes (Bld) [#/Vol] 2.70 10*3/uL Normal 1.00-4.00 [facility] Comment on above: Order Comment: Speci men Type: BLOOD SPECIMENOrdering Facility: [facility] Address: [address] [place], [place] [phone] Performed By: #### 5 7021-8 ####[facility] LABIA [id number] [address] [place] Lymphocytes/100 WBC (Bld) 32.6 % Normal [facility] Comment on above: Order Comment: Speci men Type: BLOOD SPECIMENOrdering Facility: [facility] Address: [address] [place], [place] [phone] Performed By: #### 5 7021-8 ####[facility] LABCLIA [id number] [address] MCH (RBC) [Entitic mass] 29.7 pg Normal 26.0-34.0 [facility] Comment on above: Order Comment: Speci men Type: BLOOD SPECIMENOrdering Facility: [facility] Address: [address] [place] [address] Performed By: #### 5 7021-8 ####[facility] LABIA [id number] [address] [place] MCHC (RBC) [Mass/Vol] 32.5 g/dL Normal 30.5-36.0 [facility] Comment on above: Order Comment: Speci men Type: BLOOD SPECIMENOrdering Facility: [facility] Address: [address] [place], [place] [phone] Performed By: #### 5 7021-8 ####[facility] LABIA [id number] [place] [address] [place] MCV (RBC) [Entitic vol] 91.3 fL Normal 80.0-100.0 [facility] Comment on above: Order Comment: Speci men Type: BLOOD SPECIMENOrdering Facility: [facility] Address: [address] [place] [address] Performed By: #### 5 7021-8 ####[facility] LABIA [id number] [address] [place] Monocytes (Bld) [#/Vol] 0.68 10*3/uL Normal <0.87 [facility] Comment on above: Order Comment: Speci men Type: BLOOD SPECIMENOrdering Facility: [facility] Address: [address] [place], [place] [phone] Performed By: #### 5 7021-8 ####[facility] LABIA [id number] [place] [address] [place] Monocytes/100 WBC (Bld) 8.2 % Normal [facility] Comment on above: Order Comment: Speci men Type: BLOOD SPECIMENOrdering Facility: [facility] Address: [address] [place] [address] Performed By: #### 5 7021-8 ####[facility] LABCLIA [id number] [place] [address] [place] Neutrophils (Bld) [#/Vol] 4.63 10*3/uL Normal 1.45-7.50 [facility] Comment on above: Order Comment: Speci men Type: BLOOD SPECIMENOrdering Facility: [facility] Address: [address] [place] [address] Performed By: #### 5 7021-8 ####[facility] LABCLIA [id number] [place] [address] [place] Neutrophils/100 WBC (Bld) 56.1 % Normal [facility] Comment on above: Order Comment: Speci men Type: BLOOD SPECIMENOrdering Facility: [facility] Address: [address] [place], [place] [phone] Performed By: #### 5 7021-8 ####[facility] LABCLIA [id number] [place] [address] [place] Nucleated RBC (Bld) [#/Vol] 10*3/uL Normal <0.01 [facility] Comment on above: Order Comment: Speci men Type: BLOOD SPECIMENOrdering Facility: [facility] Address: [address] [place], [place] [phone] Performed By: #### 5 7021-8 ####[facility] LABCLIA [id number] [place] [address] [place] Nucleated RBC/100 WBC (Bld) [Ratio] 0.0 /100 WBC Normal [facility] Comment on above: Order Comment: Speci men Type: BLOOD SPECIMENOrdering Facility: [facility] Address: [address] [place], [place] [phone] Performed By: #### 5 7021-8 ####[facility] LABIA [id number] [place] [address] [place] Platelet mean volume (Bld) [Entitic vol] 10.0 fL Normal 9.0-12.7 [facility] Comment on above: Order Comment: Speci men Type: BLOOD SPECIMENOrdering Facility: [facility] Address: [address] [place], [place] [phone] Performed By: #### 5 7021-8 ####[facility] LABIA [id number] [place] [address] [place] Platelets (Bld) [#/Vol] 240 10*3/uL Normal 150-400 [facility] Comment on above: Order Comment: Speci men Type: BLOOD SPECIMENOrdering Facility: [facility] Address: [address] [place], [place] [phone] Performed By: #### 5 7021-8 ####[facility] LABIA [id number] [place] [address] [place] RBC (Bld) [#/Vol] 4.72 10*6/uL Normal 3.90-5.20 [facility] Comment on above: Order Comment: Speci men Type: BLOOD SPECIMENOrdering Facility: [facility] Address: [address] [place] [address] Performed By: #### 5 7021-8 ####[facility] LABIA [id number] [place] [address] [place] WBC (Bld) [#/Vol] 8.27 10*3/uL Normal 3.70-11.00 [facility] Comment on above: Order Comment: Speci men Type: BLOOD SPECIMENOrdering Facility: [facility] Address: [address] [place] [address] Performed By: #### 5 7021-8 ####[facility] LABCLIA [id number] [address] [place] CRP SerPl-mCncon 03-28-2022 CRP [Mass/Vol] 0.6 mg/dL Normal <0.9 [facility] Comment on above: Order Comment: Speci men Type: BLOOD SPECIMENOrdering Facility: [facility] Address: [address] [address] Performed By: #### 1 988-5, 62860-4 ####[facility] LABCLIA [id number] [address] [place] Complete Blood Count Auto Di ffon 03-28-2022 Basophils (Bld) [#/Vol] 0.0 10*3/uL Normal 0.0-0.2 [facility] Comment on above: Result Comment: PERF ORMED BY: [facility] [address] [place] [address] PATHOLOGIST [employer] GUIDO ELIZALDE M.D. Performed By: #### G LULS #### Point of Care testing , Basophils/100 WBC (Bld) 0.6 % Normal . [facility] Comment on above: Performed By: #### G LULS #### Point of Care testing , Eosinophils (Bld) [#/Vol] 0.3 10*3/uL Normal 0.0-0.45 [facility] Comment on above: Performed By: #### G LULS #### Point of Care testing , Eosinophils/100 WBC (Bld) 3.9 % Normal . [facility] Comment on above: Performed By: #### G LULS #### Point of Care testing , Erythrocyte distribution width (RBC) [Ratio] 13.7 % Normal 11.9-15.3 [facility] Comment on above: Performed By: #### G LULS #### Point of Care testing , Hematocrit (Bld) [Volume fraction] 38.7 % Normal 34.0-46.4 [facility] Comment on above: Performed By: #### G LULS #### Point of Care testing , Hemoglobin (Bld) [Mass/Vol] 13.1 g/dL Normal 11.8-15.4 [facility] Comment on above: Performed By: #### G LULS #### Point of Care testing , Lymphocytes (Bld) [#/Vol] 2.7 10*3/uL Normal 1.00-4.8 [facility] Comment on above: Performed By: #### G LULS #### Point of Care testing , Lymphocytes/100 WBC (Bld) 37.6 % Normal . [facility] Comment on above: Performed By: #### G LULS #### Point of Care testing , MCH (RBC) [Entitic mass] 30.7 pg Normal 24.7-34.3 [facility] Comment on above: Performed By: #### G LULS #### Point of Care testing , MCV (RBC) [Entitic vol] 90.6 fL Normal 80-100 [facility] Comment on above: Performed By: #### G LULS #### Point of Care testing , Mean Corpuscular HGB Conc 33.9 g/dL Normal 32.0-35.0 [facility] Comment on above: Performed By: #### G LULS #### Point of Care testing , Monocytes (Bld) [#/Vol] 0.6 10*3/uL Normal 0.0-0.8 [facility] Comment on above: Performed By: #### G LULS #### Point of Care testing , Monocytes/100 WBC (Bld) 8.5 % Normal . [facility] Comment on above: Performed By: #### G LULS #### Point of Care testing , Neutrophils (Bld) [#/Vol] 3.5 10*3/uL Normal 1.8-7.7 [facility] Comment on above: Performed By: #### G LULS #### Point of Care testing , Neutrophils/100 WBC (Bld) 49.4 % Normal . [facility] Comment on above: Performed By: #### G INOCENTE #### Point of Care testing , Nucleated RBC/100 WBC (Bld) [Ratio] 0.2 % Normal 0-0.5 [facility] Comment on above: Performed By: #### G CLEMENTLS #### Point of Care testing , Platelet mean volume (Bld) [Entitic vol] 8.8 fL Normal 6.3-10.7 [facility] Comment on above: Performed By: #### G CLEMENTLS #### Point of Care testing , Platelets (Bld) [#/Vol] 245 10*3/uL Normal 150-450 [facility] Comment on above: Performed By: #### G INOCENTE #### Point of Care testing , RBC (Bld) [#/Vol] 4.27 10*6/uL Normal 3.60-5.00 [facility] Comment on above: Performed By: #### G INOCENTE #### Point of Care testing , WBC (Bld) [#/Vol] 7.1 10*3/uL Normal 4.5-11.0 [facility] Comment on above: Performed By: #### G INOCENTE #### Point of Care testing , Comprehensive Metabolic Pane michael 03-28-2022 Alanine Aminotransferase Normal 10-60 [facility] Comment on above: Result Comment: Unac ceptable specimen due to hemolysis. Redraw reordered. Performed By: #### G CLEMENTLS #### Point of Care testing , Albumin [Mass/Vol] 2.8 g/dL Low 3.2-5.5 [facility] Comment on above: Performed By: #### G INOCENTE #### Point of Care testing , Albumin/Globulin [Mass ratio] 1.0 {ratio} Normal [facility] Comment on above: Performed By: #### G CLEMENTLS #### Point of Care testing , Alkaline Phosphatase Normal 32-92 [facility] Comment on above: Result Comment: Unac ceptable specimen due to hemolysis. Redraw reordered. Performed By: #### G CLEMENTLS #### Point of Care testing , Aspartate Amino Transferase Normal 10-42 [facility] Comment on above: Result Comment: Unac ceptable specimen due to hemolysis. Redraw reordered. Performed By: #### G LULS #### Point of Care testing , Bilirubin,Total Normal 0.3-1.2 [facility] Comment on above: Result Comment: Unac ceptable specimen due to hemolysis. Redraw reordered. Performed By: #### G LULS #### Point of Care testing , Calcium [Mass/Vol] 8.8 mg/dL Normal 8.2-10.2 [facility] Comment on above: Performed By: #### G LULS #### Point of Care testing , Chloride [Moles/Vol] 104 mmol/L Normal 95-114 [facility] Comment on above: Performed By: #### G LULS #### Point of Care testing , CO2 [Moles/Vol] 25.7 mmol/L Normal 22.0-30.0 [facility] Comment on above: Performed By: #### G LULS #### Point of Care testing , Creatinine [Mass/Vol] 0.74 mg/dL Normal 0.44-1.03 [facility] Comment on above: Performed By: #### G LULS #### Point of Care testing , Creatinine Clr Calc Pharmacy 53.72 [facility] Comment on above: Result Comment: PERF ORMED BY: [facility] [address] [place] [address] PATHOLOGIST [employer] GUIDO ELIZALDE M.D. Performed By: #### G LULS #### Point of Care testing , Estimated GFR ( Froylan > 60 [facility] Comment on above: Result Comment: GFR estimated reference range: According to KDOQI guidelines, <60 ml/min/1.73m2 is sufficient to diagnose a patient with chronic kidney disease. Performed By: #### G LULS #### Point of Care testing , Estimated GFR (Non- Am > 60 [facility] Comment on above: Performed By: #### G LULS #### Point of Care testing , Globulin (S) [Mass/Vol] 2.9 g/dL Normal [facility] Comment on above: Performed By: #### G LULS #### Point of Care testing , Glucose [Mass/Vol] 193 mg/dL High 70-100 [facility] Comment on above: Result Comment: Okay Glucose Reference Range is dependent on time and content of last meal. Glucose of more than 200 mg/dL in a nonstressed, ambulatory subject supports the diagnosis of Diabetes Mellitus. ADA recommended reference range Performed By: #### G LULS #### Point of Care testing , Potassium Normal 3.5-5.1 [facility] Comment on above: Result Comment: Unac ceptable specimen due to hemolysis. Redraw reordered. Performed By: #### G LULS #### Point of Care testing , Protein [Mass/Vol] 5.7 g/dL Low 6.1-7.9 [facility] Comment on above: Performed By: #### G LULS #### Point of Care testing , Sodium [Moles/Vol] 138 mmol/L Normal 136-146 [facility] Comment on above: Performed By: #### G LULS #### Point of Care testing , Urea nitrogen [Mass/Vol] 18 mg/dL Normal 9-23 [facility] Comment on above: Performed By: #### G LULS #### Point of Care testing , Creatinine and Glomerular fi ltration rate.predicted panel (S/P/Bld)Ordered By: Kieran Scott on 03-28-2022 Creatinine [Mass/Vol] 0.74 mg/dL 0.44-1.03 [facility] ESR Westergren method (Bld) [Velocity]on 03-28-2022 ESR (Bld) [Velocity] 29 mm/h High 0-20 [facility] Comment on above: Order Comment: Speci men Type: BLOOD SPECIMENOrdering Facility: [facility] Address: [address] [place], [place] [address] Performed By: #### 4 537-7 ####[facility] LABCLIA [id number] [place] [address] [place] Eosinophils Auto (Bld) [#/Vo l]Ordered By: Kieran Scott on 03-28-2022 Eosinophils (Bld) [#/Vol] 0.3 10*3/uL 0.0-0.45 [facility] Eosinophils/100 WBC Auto (Bl d)Ordered By: Kieran Scott on 03-28-2022 Eosinophils/100 WBC (Bld) 3.9 % . [facility] Erythrocyte distribution wid th Auto (RBC) [Ratio]Ordered By: Kieran Scott on 03-28-2022 Erythrocyte distribution width (RBC) [Ratio] 13.7 % 11.9-15.3 [facility] Estimated glomerular filtrat ion rate (GFR) non- AmericanOrdered By: Kieran Scott on 03-28-2022 GFR/1.73 sq M.predicted among non-blacks MDRD (S/P/Bld) [Vol rate/Area] > 60 mL/Min [facility] Globulin Calc (S) [Mass/Vol] Ordered By: Kieran Scott on 03-28-2022 Globulin (S) [Mass/Vol] 2.9 g/dL [facility] Glucose Glucometer (BldC) [M ass/Vol]Ordered By: Rupert Anthony on 03-28-2022 Glucose [Mass/Vol] 236 mg/dL [facility] Comment on above: Random Glucose Refer ence Range is dependent on time and content of last meal. Glucose of more than 200 mg/dL in a nonstressed, ambulatory subject supports the diagnosis of Diabetes Mellitus. Glucose Poct Glucometerson 0 03-28-2022 Commemt1 Glu2: Cleaned Meter Normal [facility] Comment on above: Result Comment: PERF ORMED BY: [facility] [address] [place] [address] PATHOLOGIST [employer]OWERHOU[employer]LECT[employer]ICIAN APPRENTICE GUIDO ELIZALDE M.D. Performed By: #### C BC, PT, PTT, CMP #### [facility] [address] Glucose [Mass/Vol] 236 mg/dL Normal [facility] Comment on above: Result Comment: [facility] Glucose Reference Range is dependent on time and content of last meal. Glucose of more than 200 mg/dL in a nonstressed, ambulatory subject supports the diagnosis of Diabetes Mellitus. Performed By: #### C BC, PT, PTT, CMP #### [facility] [address] Glucose [Mass/Vol] 193 mg/dL Normal [facility] Comment on above: Result Comment: [facility] Glucose Reference Range is dependent on time and content of last meal. Glucose of more than 200 mg/dL in a nonstressed, ambulatory subject supports the diagnosis of Diabetes Mellitus. PERFORMED BY: [place] [address] PATHOLOGIST [employer]HOU[employer] ELECTRICIAN APPRENTICE GUIDO ELIZALDE M.D. Performed By: #### C BC, PT, PTT, CMP #### [address] HISTORY PHYSICALon HISTORY PHYSICAL HNO ID: [id number] Author: Fredy Marquez MD Service: Orthopaedic Surgery Author Type: Resident Type: HANDP Filed: 03/28/2022 7:18 PM Note Text: Attestation signed by Josue Shirley MD at 03/29/2022 10:02 AM Josue Shirley MD ORTHOPAEDIC SPINE SURGERY HISTORY AND PHYSICAL ADMISSION NOTE Patient Name: Saeed Sarabia Admission Date: 03/28/2022 Date of Evaluation: 03/28/2022 Time of Evaluation: 5:51 PM ASSESSMENT Saeed Sarabia is a 81 year old female with PMH of RA, DM II, HTN, HLD, CAD s/p stenting, Aifb on Eliquis (last 03/24) presenting with lumbar spinal stenosis with R foot weakness. PLAN - Admit to orthopaedic spine surgery service under Dr. Sears - Consented/posted for lumbar spine decompression, possible fusion - Plan for possible OR on 03/31 - Preoperative labs including: CBC, BMP, TANDS, Coags, CXR, ECG, ESR, CRP, UA/UCx - Maintenance IV fluids while NPO - 2 units of blood on hold for OR - Hold Eliquis - WBAT - Internal Medicine team consulted for preoperative clearance and recommendations CHIEF COMPLAINT / REASON FOR CONSULT: Direct admit to orthopaedics for lumbar spinal stenosis causing R foot weakness HISTORY OF PRESENT ILLNESS Saeed Sarabia is a 81 year old female with PMH of RA, DM II, HTN, HLD, CAD s/p stenting, Aifb on Eliquis (last 03/24) presenting with lumbar spine pain and R lower leg motor loss for the past 1.5 weeks. She reports low back pain for years, which has been getting worse over the past few months. She also recently developed radiation down both legs with associated numbness and tingling (R>L). She presented to OSH earlier this month due to worsening of symptoms and was found to have spinal canal stenosis. She was scheduled for surgery but unfortunately this got cancelled for unrelated reasons. She then developed R foot weakness about 1.5 weeks ago. She was transferred to for further management. Today, she reports pain is located mostly to the lower back with radiation to the RLE. This is controlled. Her RLE weakness is unchanged. She has no bowel or bladder incontinence. No saddle anesthesia. She reports a fall about 3 weeks ago prior to symptoms worsening. She is on Eliquis at home but they stopped it at OSH in preparation for surgery (has not taken since 03/24). She ambulated without assistance up to a month ago, and then with a walker since symptoms worsened. PAST MEDICAL HISTORY RA DM II HTN HLD CAD s/p stenting Aifb on Eliquis PAST SURGICAL HISTORY No past surgical history on file. PAST FAMILY HISTORY No family history on file. SOCIAL HISTORY Social History Socioeconomic History Marital status: Unknown Spouse name: Not on file Number of children: Not on file Years of education: Not on file Highest education level: Not on file Occupational History Not on file Tobacco Use Smoking status: Not on file Smokeless tobacco: Not on file Substance and Sexual Activity Alcohol use: Not on file Drug use: Not on file Sexual activity: Not on file Other Topics Concerns: Not on file Social History Narrative Not on file Social Determinants of Health Financial Resource Strain: Not on file Food Insecurity: Not on file Transportation Needs: Not on file Physical Activity: Not on file Stress: Not on file Social Connections: Not on file Housing Stability: Not on file COMPLETE REVIEW OF SYSTEMS PAIN ASSESSMENT: Refer to HPI GENERAL: No significant weight loss, fatigue HEENT: Negative for headaches, hearing/vision changes NECK: Negative for swelling RESPIRATORY: Negative for cough, hemoptysis, wheezing, or shortness of breath CARDIOVASCULAR: Negative for chest pain or palpitations GI: Negative for nausea or diarrhea : Negative for dysuria, frequency or incontinence MUSCULOSKELETAL: Refer HPI SKIN: Negative for lesion, rash, or pruritus PSYCH: Negative for significant symptoms HEMATOLOGY/LYMPHOLOG Y: Negative for prolonged bleed, easy bruising or swollen nodes ENDOCRINE: Negative for cold/heat intolerance or polydipsia NEURO: Negative for syncope, paralysis, seizures, or tremors PHYSICAL EXAM Vitals: BP 145/70 Pulse 69 Temp 36.7 ?C (98.1 ?F) (Oral) Resp 17 SpO2 96% General: NAD, AOx3 Peripheral pulses intact Equal chest expansion bilaterally, breathing comfortably at rest SPINE EXAM: Neck: Full range of motion. No stepoffs/deformities . No tenderness to palpation along spinous processes or paravertebral musculature Back: No stepoffs/deformities . No tenderness to palpation along spinous processes or paravertebral musculature Upper Extremity: L UE: D 5/ B 5/ T 5 WE / WF / FF 5/ IO 5/, SILT C5-T1 R UE: (more content not included)... Normal [facility] Hematocrit Auto (Bld) [Volum e fraction]Ordered By: Kieran Scott on 03-28-2022 Hematocrit (Bld) [Volume fraction] 38.7 % 34.0-46.4 [facility] Laboratory - Chemistry and C hemistry - challengeOrdered By: Kieran Scott on 03-28-2022 AST [Catalytic activity/Vol] 24 U/L 10-42 [facility] Laboratory - Hematology and Cell countsOrdered By: Kieran Tyler on 03-28-2022 Nucleated RBC/100 WBC (Bld) [Ratio] 0.2 % 0-0.5 [facility] Lymphocytes Auto (Bld) [#/Vo l]Ordered By: Kieran Tyler on 03-28-2022 Lymphocytes (Bld) [#/Vol] 2.7 10*3/uL 1.00-4.8 [facility] Lymphocytes/100 WBC Auto (Bl d)Ordered By: Kieran Tyler on 03-28-2022 Lymphocytes/100 WBC (Bld) 37.6 % . [facility] MCH Auto (RBC) [Entitic mass ]Ordered By: Kieran Benjaminmood on 03-28-2022 MCH (RBC) [Entitic mass] 30.7 pg 24.7-34.3 [facility] MCHC Auto (RBC) [Mass/Vol]Or dered By: Kieran Tyler on 03-28-2022 MCHC (RBC) [Mass/Vol] 33.9 g/dL 32.0-35.0 [facility] MCV Auto (RBC) [Entitic vol] Ordered By: Kieran Tyler on 03-28-2022 MCV (RBC) [Entitic vol] 90.6 fL 80-100 [facility] Monocytes Auto (Bld) [#/Vol] Ordered By: Kieran Tyler on 03-28-2022 Monocytes (Bld) [#/Vol] 0.6 10*3/uL 0.0-0.8 [facility] Monocytes/100 WBC Auto (Bld) Ordered By: Kieran Tyler on 03-28-2022 Monocytes/100 WBC (Bld) 8.5 % . [facility] NURSING PROGon 03-28-2022 NURSING PROG HNO ID: [id number] Author: Sriram Jane RN Service: ? Author Type: Registered Nurse Type: Nursing Progress Note Filed: 03/28/2022 5:46 PM Note Text: Nursing Progress Note Patient Name: Saeed Sarabia Patient Location: [place] [address]60 Daily Note: Patient admitted to 0 from OSH in stable condition. Oriented to room and call light function. Ortho/spine cellular phone repairer paged to notify of arrival. Awaiting orders. Patient resting comfortably with no pain at this time. This note was completed by: Sriram Bustillos [facility] Neutrophils Auto (Bld) [#/Vo l]Ordered By: Kieran Scott on 03-28-2022 Neutrophils (Bld) [#/Vol] 3.5 10*3/uL 1.8-7.7 [facility] Neutrophils/100 WBC Auto (Bl d)Ordered By: Kieran Scott on 03-28-2022 Neutrophils/100 WBC (Bld) 49.4 % . [facility] No Panel InformationOrdered By: Rupert Anthony on 03-28-2022 Bedside Glucose Comment Glu2: cleaned meter [facility] No Panel InformationOrdered By: Kieran Scott on 03-28-2022 Estimated GFR () > 60 mL/Min [facility] Comment on above: GFR estimated refere nce range: According to KDOQI guidelines, <60 ml/min/1.73m2 is sufficient to diagnose a patient with chronic kidney disease. Pharmacy Creatinine Clearance (Chem 53.72 [facility] PT panel Coag (PPP)on 2021 INR Coag (PPP) [Relative time] 1.0 {INR} Normal 0.9-1.3 [facility] Comment on above: Order Comment: Speci men Type: BLOOD SPECIMENOrdering Facility: [facility] Address: [address] [place] [address] [place] [address] Result Comment: [place] min K Antagonist (VKA) Therapeutic Range: INR 2 to 3 (Target INR of 2.5) Note: For patients treated with VKA drugs, such as warfarin, the [place] [employer] 2012 Guideline recommends a therapeutic INR range of 2 to 3 (target INR of 2.5). This recommendation includes high-risk patients with antiphospholipid syndrome with previous arterial or venous thromboembolism, current-generation mechanical or bioprosthetic aortic heart valve replacement. Note: Patients with mechanical aortic valve replacement and additional risk factors for thromboembolic events (atrial fibrillation, previous thromboembolism, LV dysfunction, hypercoagulable conditions) or an older generation mechanical AVR (i.e., ball in-Cage) or any mechanical MVR should have a INR therapeutic range of 2.5 to 3.5 (target INR of 3). Tri GH, et al. Chest 2012, 141:7S-47S Shailesh GALLEGO et al. [facility] 2017, 70: 252-289 Performed By: #### 3 4528-0, 47974-7 ####[facility] [id number] [place] [address] [place] PT Coag (PPP) [Time] 10.4 s Normal 9.7-13.0 [facility] Comment on above: Order Comment: Speci men Type: BLOOD SPECIMENOrdering Facility: [facility] Address: [address] [place] [address] Performed By: #### 3 4528-0, 39227-3 ####[facility] [id number] [place] [address] [place] Platelet mean volume Auto (B ld) [Entitic vol]Ordered By: Kieran Scott on 03-28-2022 Platelet mean volume (Bld) [Entitic vol] 8.8 fL 6.3-10.7 [facility] Platelets Auto (Bld) [#/Vol] Ordered By: Kieran Scott on 03-28-2022 Platelets (Bld) [#/Vol] 245 10*3/uL 150-450 [facility] Protein [Mass/volume] in Ser um or PlasmaOrdered By: Kieran Scott on 03-28-2022 Protein [Mass/Vol] 5.7 g/dL 6.1-7.9 [facility] RBC Auto (Bld) [#/Vol]Ordere d By: Kieran Scott on 03-28-2022 RBC (Bld) [#/Vol] 4.27 10*6/uL 3.60-5.00 [facility] Redraw Jadyn 03-28-2022 ALT [Catalytic activity/Vol] 25 U/L Normal 10-60 [facility] Comment on above: Order Comment: REDRA W Performed By: #### G LULS #### Point of Care testing , Redraw Tripp 03-28-2022 AST [Catalytic activity/Vol] 24 U/L Normal 10-42 [facility] Comment on above: Order Comment: REDRA W Performed By: #### G LULS #### Point of Care testing , Redraw Alkaline Phosphataseo n 03-28-2022 ALP [Catalytic activity/Vol] 50 U/L Normal 32-92 [facility] Comment on above: Order Comment: REDRA W Result Comment: PERF ORMED BY: [facility] [address] [place] [address] PATHOLOGIST [employer] APPRENTICE GUIDO ELIZALDE M.D. Performed By: #### G LULS #### Point of Care testing , Redraw Bilirubin,Totalon Bilirubin [Mass/Vol] 0.8 mg/dL Normal 0.3-1.2 [facility] Comment on above: Order Comment: REDRA W Performed By: #### G LULS #### Point of Care testing , Redraw Potassiumon Potassium [Moles/Vol] 4.7 mmol/L Normal 3.5-5.1 [facility] Comment on above: Order Comment: REDRA W Performed By: #### G LULS #### Point of Care testing , SARS-CoV-2 RNA Resp Ql HARMONY+p robeon 03-28-2022 SARS-CoV-2 (COVID-19) RNA HARMONY+probe Ql (Resp) COVID 19 RESULT: SARS-CoV-2 (Agent of COVID-19) Not Detected by RT-PCR or equivalent method. This test has been authorized by FDA under an Emergency Use Authorization (EUA). Normal [facility] Comment on above: Performed By: #### 9 4500-6 ####[facility] LABCLIA [id number] [address] STATES OF [facility] Serum or plasma alanine [place] otransferase measurement without P-5'-P (enzymatic activiOrdered By: Kieran Scott on 03-28-2022 ALT No additional P-5'-P [Catalytic activity/Vol] 25 U/L 10-60 [facility] Serum or plasma albumin/glob ulin mass ratioOrdered By: Kieran Scott on 03-28-2022 Albumin/Globulin [Mass ratio] 1.0 {ratio} [facility] Serum or plasma alkaline dolly sphatase measurement (enzymatic activity/volume)Ordered By: Kieran Scott on 03-28-2022 ALP [Catalytic activity/Vol] 50 U/L 32-92 [facility] Serum or plasma calcium nakul urement (mass/volume)Ordered By: Kieran Scott on 03-28-2022 Calcium [Mass/Vol] 8.8 mg/dL 8.2-10.2 [facility] Serum or plasma chloride elizabeth surement (moles/volume)Ordered By: Kieran Scott on 03-28-2022 Chloride [Moles/Vol] 104 mmol/L 95-114 [facility] Serum or plasma glucose nakul urement (mass/volume)Ordered By: Kieran Scott on 03-28-2022 Glucose [Mass/Vol] 193 mg/dL 70-100 [facility] Comment on above: ADA recommended refe rence range Random Glucose Reference Range is dependent on time and content of last meal. Glucose of more than 200 mg/dL in a nonstressed, ambulatory subject supports the diagnosis of Diabetes Mellitus. Serum or plasma potassium me asurement (moles/volume)Ordered By: Kieran Scott on 03-28-2022 Potassium [Moles/Vol] 4.7 mmol/L 3.5-5.1 [facility] Serum or plasma sodium measu rement (moles/volume)Ordered By: Kieran Scott on 03-28-2022 Sodium [Moles/Vol] 138 mmol/L 136-146 [facility] Serum or plasma total biliru bin measurement (mass/volume)Ordered By: Kieran Scott on 03-28-2022 Bilirubin [Mass/Vol] 0.8 mg/dL 0.3-1.2 [facility] Serum or plasma total carbon dioxide measurement (moles/volume)Ordered By: Kieran Scott on 03-28-2022 CO2 [Moles/Vol] 25.7 mmol/L 22.0-30.0 [facility] Serum or plasma urea nitroge n measurement (mass/volume)Ordered By: Kieran Scott on 03-28-2022 Urea nitrogen [Mass/Vol] 18 mg/dL 9-23 [facility] TYPE + SCREENon 03-28-2022 ABO O Normal [facility] Comment on above: Order Comment: Speci men Type: BLOOD SPECIMENOrdering Facility: [facility] Address: [address] [place] [address] Performed By: #### T SCR ####CC MAIN BLOOD BANKCLIA [id number] [address] [place] HISTORICAL AB SCR STATUS Negative Normal [facility] Comment on above: Order Comment: Speci men Type: BLOOD SPECIMENOrdering Facility: [facility] Address: [address] [place] [address] Performed By: #### T SCR ####CC MAIN BLOOD BANKCLIA [id number] [place] [address] [place] Rh Nom (Bld) Positive Normal [facility] Comment on above: Order Comment: Speci men Type: BLOOD SPECIMENOrdering Facility: [facility] Address: [address] [place] [address] Performed By: #### T SCR ####CC MAIN BLOOD BANKCLIA [id number] [place] [address] [place] TYPE AND SCREEN EXPIRATION 03/31/2022 23:59 Normal [facility] Comment on above: Order Comment: Speci men Type: BLOOD SPECIMENOrdering Facility: [facility] Address: [address] [place], [place] [phone] Performed By: #### T SCR ####CC MAIN BLOOD BANKCLIA [id number] [address] OF [place] XR CHEST 1V FRONTAL PORTon 0 03-28-2022 XR CHEST 1V FRONTAL PORT * * *Final Repo rt* * * DATE OF EXAM: Mar 28 2022 9:06PM TATE 5376 - XR CHEST 1V FRONTAL PORT / PROCEDURE REASON: Pre-op noncardiac surgery, low risk * * * * Physician Interpretation * * * * EXAMINATION: CHEST RADIOGRAPH (PORTABLE SINGLE VIEW AP) Exam Date/Time: 03/28/2022 9:06 PM Clinical History: Pre-op noncardiac surgery, low risk MQ: [id number] Comparison: 03/23/2022 RESULT: Lines, tubes, and devices: None. Lungs and pleura: No acute focal lung consolidation is seen. No substantial pleural effusion is seen. There is no pneumothorax. Cardiomediastinal silhouette: Stable cardiomediastinal silhouette. The aortic arch is atherosclerotic. IMPRESSION: See result. Vineyard Tender: PSCB Transcribe Date/Time: Mar 28 2022 9:08P Dictated by : LUZ ELENA HONEYCUTT MD This examination was interpreted and the report reviewed and electronically signed by: LUZ ELENA HONEYCUTT MD on Mar 28 2022 9:09PM EST [id number] Normal [facility] aPTT PPPon 03-28-2022 aPTT Coag (PPP) [Time] 23.7 s Normal 23.0-32.4 Cl [facility] Comment on above: Order Comment: Speci men Type: BLOOD SPECIMENOrdering Facility: [facility] Address: [address] [place], [place] [phone] Performed By: #### 3 4528-0, 66685-6 ####[facility] LABCLIA [id number] [place] [address] [place] Automated erythrocytes count in urine sediment (number/area)Ordered By: Kieran Tyler on 03-27-2022 RBC Auto (Urine sed) [#/Area] 10-19 [HPF] 0-4 [facility] Automated leukocytes count i n urine sediment (number/area)Ordered By: Kieran Tyler on 03-27-2022 WBC Auto (Urine sed) [#/Area] 5-9 [HPF] 0-4 [facility] Bilirubin Test strip Ql (U)O rdered By: Kieran Scott on 03-27-2022 Bilirubin Ql (U) Negative Negative [facility] Color Auto (U)Ordered By: Vivek Scott on 03-27-2022 Color (U) Yellow Yellow [facility] Complete Blood Count Auto Di ffon 03-27-2022 Basophils (Bld) [#/Vol] 0.0 10*3/uL Normal 0.0-0.2 [facility] Comment on above: Result Comment: PERF ORMED BY: [place] [address] PATHOLOGIST [employer] APPRENTICE GUIDO ELIZALDE M.D. Performed By: #### C BC, PT, PTT, CMP #### [facility] [address] [place] [address] [place] Basophils/100 WBC (Bld) 0.4 % Normal . [facility] Comment on above: Performed By: #### C BC, PT, PTT, CMP #### [facility] [address] [place] [id number] [place] Eosinophils (Bld) [#/Vol] 0.3 10*3/uL Normal 0.0-0.45 [facility] Comment on above: Performed By: #### C BC, PT, PTT, CMP #### [facility] [address] [place] [address] [place] Eosinophils/100 WBC (Bld) 4.2 % Normal . [facility] Comment on above: Performed By: #### C BC, PT, PTT, CMP #### [address] Erythrocyte distribution width (RBC) [Ratio] 13.8 % Normal 11.9-15.3 [facility] Comment on above: Performed By: #### C BC, PT, PTT, CMP #### [address] Hematocrit (Bld) [Volume fraction] 40.4 % Normal 34.0-46.4 [facility] Comment on above: Performed By: #### C BC, PT, PTT, CMP #### [address] Hemoglobin (Bld) [Mass/Vol] 13.6 g/dL Normal 11.8-15.4 [facility] Comment on above: Performed By: #### C BC, PT, PTT, CMP #### [address] Lymphocytes (Bld) [#/Vol] 3.0 10*3/uL Normal 1.00-4.8 [facility] Comment on above: Performed By: #### C BC, PT, PTT, CMP #### [address] Lymphocytes/100 WBC (Bld) 36.2 % Normal . [facility] Comment on above: Performed By: #### C BC, PT, PTT, CMP #### [address] MCH (RBC) [Entitic mass] 30.7 pg Normal 24.7-34.3 [facility] Comment on above: Performed By: #### C BC, PT, PTT, CMP #### [address] MCV (RBC) [Entitic vol] 90.9 fL Normal 80-100 [facility] Comment on above: Performed By: #### C BC, PT, PTT, CMP #### [address] Mean Corpuscular HGB Conc 33.7 g/dL Normal 32.0-35.0 [facility] Comment on above: Performed By: #### C BC, PT, PTT, CMP #### [facility] [address] Monocytes (Bld) [#/Vol] 0.8 10*3/uL Normal 0.0-0.8 [facility] Comment on above: Performed By: #### C BC, PT, PTT, CMP #### [facility] [address] Monocytes/100 WBC (Bld) 9.6 % Normal . [facility] Comment on above: Performed By: #### C BC, PT, PTT, CMP #### [address] Neutrophils (Bld) [#/Vol] 4.1 10*3/uL Normal 1.8-7.7 [facility] Comment on above: Performed By: #### C BC, PT, PTT, CMP #### [address] Neutrophils/100 WBC (Bld) 49.6 % Normal . [facility] Comment on above: Performed By: #### C BC, PT, PTT, CMP #### [place] [address] [place] Nucleated RBC/100 WBC (Bld) [Ratio] 0.0 % Normal 0-0.5 [facility] Comment on above: Performed By: #### C BC, PT, PTT, CMP #### [facility] [address] [place] [address] [place] Platelet mean volume (Bld) [Entitic vol] 8.6 fL Normal 6.3-10.7 [facility] Comment on above: Performed By: #### C BC, PT, PTT, CMP #### [facility] [address] [place] [address] [place] Platelets (Bld) [#/Vol] 240 10*3/uL Normal 150-450 [facility] Comment on above: Performed By: #### C BC, PT, PTT, CMP #### [facility] [address] [place] [address] RBC (Bld) [#/Vol] 4.45 10*6/uL Normal 3.60-5.00 [facility] Comment on above: Performed By: #### C BC, PT, PTT, CMP #### [address] WBC (Bld) [#/Vol] 8.2 10*3/uL Normal 4.5-11.0 [facility] Comment on above: Performed By: #### C BC, PT, PTT, CMP #### [address] Comprehensive Metabolic Pane michael 03-27-2022 Albumin [Mass/Vol] 2.9 g/dL Low 3.2-5.5 [facility] Comment on above: Performed By: #### C BC, PT, PTT, CMP #### [address] Albumin/Globulin [Mass ratio] 1.0 {ratio} Normal [facility] Comment on above: Performed By: #### C BC, PT, PTT, CMP #### [address] ALP [Catalytic activity/Vol] 51 U/L Normal 32-92 [facility] Comment on above: Performed By: #### C BC, PT, PTT, CMP #### [address] ALT [Catalytic activity/Vol] 26 U/L Normal 10-60 [facility] Comment on above: Performed By: #### C BC, PT, PTT, CMP #### [address] AST [Catalytic activity/Vol] 22 U/L Normal 10-42 [facility] Comment on above: Performed By: #### C BC, PT, PTT, CMP #### [address] Bilirubin [Mass/Vol] 0.8 mg/dL Normal 0.3-1.2 [facility] Comment on above: Performed By: #### C BC, PT, PTT, CMP #### [facility] [address] Calcium [Mass/Vol] 9.0 mg/dL Normal 8.2-10.2 [facility] Comment on above: Performed By: #### C BC, PT, PTT, CMP #### [facility] [address] Chloride [Moles/Vol] 101 mmol/L Normal 95-114 [facility] Comment on above: Performed By: #### C BC, PT, PTT, CMP #### [address] CO2 [Moles/Vol] 27.1 mmol/L Normal 22.0-30.0 [facility] Comment on above: Performed By: #### C BC, PT, PTT, CMP #### [address] Creatinine [Mass/Vol] 0.85 mg/dL Normal 0.44-1.03 [facility] Comment on above: Performed By: #### C BC, PT, PTT, CMP #### [address] Creatinine Clr Calc Pharmacy 50.56 [facility] Comment on above: Result Comment: PERF ORMED BY: [place] [address] PATHOLOGIST [employer]ICE GUIDO ELIZALDE M.D. Performed By: #### C BC, PT, PTT, CMP #### [address] Estimated GFR ( Froylan > 60 Normal [facility] Comment on above: Result Comment: GFR estimated reference range: According to KDOQI guidelines, <60 ml/min/1.73m2 is sufficient to diagnose a patient with chronic kidney disease. Performed By: #### C BC, PT, PTT, CMP #### [address] Estimated GFR (Non- Am > 60 Normal [facility] Comment on above: Performed By: #### C BC, PT, PTT, CMP #### [facility] [address] Globulin (S) [Mass/Vol] 3.0 g/dL Normal [facility] Comment on above: Performed By: #### C BC, PT, PTT, CMP #### [facility] [address] Glucose [Mass/Vol] 177 mg/dL High 70-100 [facility] Comment on above: Result Comment: [facility] Glucose Reference Range is dependent on time and content of last meal. Glucose of more than 200 mg/dL in a nonstressed, ambulatory subject supports the diagnosis of Diabetes Mellitus. ADA recommended reference range Performed By: #### C BC, PT, PTT, CMP #### [facility] [address] Potassium [Moles/Vol] 4.0 mmol/L Normal 3.5-5.1 [facility] Comment on above: Performed By: #### C BC, PT, PTT, CMP #### [facility] [address] Protein [Mass/Vol] 5.9 g/dL Low 6.1-7.9 [facility] Comment on above: Performed By: #### C BC, PT, PTT, CMP #### [facility] [address] Sodium [Moles/Vol] 139 mmol/L Normal 136-146 [facility] Comment on above: Performed By: #### C BC, PT, PTT, CMP #### [facility] [address] Urea nitrogen [Mass/Vol] 23 mg/dL Normal 9-23 [facility] Comment on above: Performed By: #### C BC, PT, PTT, CMP #### [facility] [address] [place] [address] [place] Dipstick and Microscopicon 0 03-27-2022 Appearance (U) Clear Normal Clear [facility] Comment on above: Order Comment: Name Collection Type:: Clean-Voided Midstream Performed By: #### G LULS #### Point of Care testing , Bacteria,Urine None Seen Normal None Seen [facility] Comment on above: Order Comment: Name Collection Type:: Clean-Voided Midstream Performed By: #### G LULS #### Point of Care testing , Bilirubin,Urine Negative Normal Negative [facility] Comment on above: Order Comment: Name Collection Type:: Clean-Voided Midstream Performed By: #### G LULS #### Point of Care testing , Color (U) Yellow Normal Yellow [facility] Comment on above: Order Comment: Name Collection Type:: Clean-Voided Midstream Performed By: #### G LULS #### Point of Care testing , Glucose Ql (U) 500 mg/dL High Normal [facility] Comment on above: Order Comment: Name Collection Type:: Clean-Voided Midstream Performed By: #### G LULS #### Point of Care testing , Hyaline Casts,Urine None Seen Normal 0-8 [facility] Comment on above: Order Comment: Name Collection Type:: Clean-Voided Midstream Result Comment: PERF ORMED BY: [facility] [address] [place] [address] PATHOLOGIST [employer]ICE GUIDO ELIZALDE M.D. Performed By: #### G LULS #### Point of Care testing , Ketones Ql (U) Negative Normal Negative [facility] Comment on above: Order Comment: Name Collection Type:: Clean-Voided Midstream Performed By: #### G LULS #### Point of Care testing , Leukocyte esterase Test strip Ql (U) 2+ High Negative [facility] Comment on above: Order Comment: Name Collection Type:: Clean-Voided Midstream Performed By: #### G LULS #### Point of Care testing , Nitrite,Urine Negative Normal Negative [facility] Comment on above: Order Comment: Name Collection Type:: Clean-Voided Midstream Performed By: #### G LULS #### Point of Care testing , Occult Blood,Urine 2+ High Negative [facility] Comment on above: Order Comment: Name Collection Type:: Clean-Voided Midstream Result Comment: PERF ORMED BY: [facility] [address] PATHOLOGIST [employer]ICE GUIDO ELIZALDE M.D. Performed By: #### G LULS #### Point of Care testing , pH (U) 5.5 [pH] Normal 5.0-9.0 [facility] Comment on above: Order Comment: Name Collection Type:: Clean-Voided Midstream Performed By: #### G LULS #### Point of Care testing , Protein,Urine Negative Normal Negative [facility] Comment on above: Order Comment: Name Collection Type:: Clean-Voided Midstream Performed By: #### G LULS #### Point of Care testing , RBC,Urine 10-19 High 0-4 [facility] Comment on above: Order Comment: Name Collection Type:: Clean-Voided Midstream Performed By: #### G LULS #### Point of Care testing , Specificy [place],Urine 1.012 Normal 1.001-1.030 [facility] Comment on above: Order Comment: Name Collection Type:: Clean-Voided Midstream Performed By: #### G LULS #### Point of Care testing , Squamous Epithelial Cell,Urine 0-1 Normal 0-2 [facility] Comment on above: Order Comment: Name Collection Type:: Clean-Voided Midstream Performed By: #### G LULS #### Point of Care testing , Urobilinogen,Urine Normal Normal Normal [facility] Comment on above: Order Comment: Name Collection Type:: Clean-Voided Midstream Performed By: #### G LULS #### Point of Care testing , WBC,Urine 5-9 High 0-4 [facility] Comment on above: Order Comment: Name Collection Type:: Clean-Voided Midstream Performed By: #### G LULS #### Point of Care testing , Glucose Poct Glucometerson 0 03-27-2022 Glucose [Mass/Vol] 164 mg/dL Normal [facility] Comment on above: Result Comment: Okay om Glucose Reference Range is dependent on time and content of last meal. Glucose of more than 200 mg/dL in a nonstressed, ambulatory subject supports the diagnosis of Diabetes Mellitus. PERFORMED BY: [place] [address] PATHOLOGIST [employer]ENTICE GUIDO ELIZALDE M.D. Performed By: #### C BC, PT, PTT, CMP #### [facility] [address] [place] [address] [place] Glucose [Mass/Vol] 222 mg/dL Normal [facility] Comment on above: Result Comment: Okay om Glucose Reference Range is dependent on time and content of last meal. Glucose of more than 200 mg/dL in a nonstressed, ambulatory subject supports the diagnosis of Diabetes Mellitus. PERFORMED BY: [place] [address] PATHOLOGIST [employer] APPRENTICE GUIDO ELIZALDE M.D. Performed By: #### C BC, PT, PTT, CMP #### [place] [id number] [place] Glucose [Mass/Vol] 256 mg/dL Normal [facility] Comment on above: Result Comment: Okay om Glucose Reference Range is dependent on time and content of last meal. Glucose of more than 200 mg/dL in a nonstressed, ambulatory subject supports the diagnosis of Diabetes Mellitus. PERFORMED BY: [place] [address] PATHOLOGIST [employer] APPRENTICE GUIDO ELIZALDE M.D. Performed By: #### C BC, PT, PTT, CMP #### [place] [id number] [place] Glucose [Mass/Vol] 202 mg/dL Normal [facility] Comment on above: Result Comment: Okay om Glucose Reference Range is dependent on time and content of last meal. Glucose of more than 200 mg/dL in a nonstressed, ambulatory subject supports the diagnosis of Diabetes Mellitus. PERFORMED BY: [address] [place] [id number] PATHOLOGIST [employer] APPRENTICE GUIDO ELIZALDE M.D. Performed By: #### C BC, PT, PTT, CMP #### [place] [id number] [facility] Ketones Auto test strip (U) [Mass/Vol]Ordered By: Kieran Scott on 03-27-2022 Ketones (U) [Mass/Vol] Negative Negative [facility] - UrinalysisOrder ed By: Kieran Scott on 03-27-2022 Hyaline casts LM Ql (Urine sed) None seen [LPF] 0-8 [facility] Nitrite Test strip Ql (U)Ord ered By: Kieran Scott on 03-27-2022 Nitrite Ql (U) Negative Negative [facility] Protein Auto test strip (U) [Mass/Vol]Ordered By: Kieran Scott on 03-27-2022 Protein (U) [Mass/Vol] Negative Negative [facility] Specific gravity Auto test s trip (U) [Rel density]Ordered By: Kieran Scott on 03-27-2022 Specific gravity (U) [Rel density] 1.012 1.001-1.030 [facility] Squamous epithelial cells de tection in urine sediment by light microscopyOrdered By: Kieran Scott on 03-27-2022 Epithelial cells.squamous LM Ql (Urine sed) 0-1 [HPF] 0-2 [facility] Urine Cultureon 03-27-2022 Bacteria identified Cx Nom (U) 75,000 colonies/ml mixed bacterial skin contaminants 2 Days PERFORMED BY: [place] [address] PATHOLOGIST [employer]ICE GUIDO ELIZALDE M.D. Normal [facility] Comment on above: Performed By: #### G LULS #### Point of Care testing , Urine bacteria detection by automated methodOrdered By: Kieran Scott on 03-27-2022 Bacteria Auto Ql (U) None seen None Seen [facility] Urine clarity by refractomet ry automatedOrdered By: Kieran Scott on 03-27-2022 Clarity Refractometry automated (U) Clear Clear [facility] Urine culture routineOrdered By: Kieran Scott on 03-27-2022 Bacteria identified Cx Nom (U) 2 Days [facility] Urine glucose measurement by automated test strip (mass/volume)Ordered By: Kieran Scott on 03-27-2022 Glucose Auto test strip (U) [Mass/Vol] 500 mg/dL Normal [facility] Urine hemoglobin detection b y automated test stripOrdered By: Kieran Scott on 03-27-2022 Hemoglobin Auto test strip Ql (U) 2+ Negative [facility] Urine leukocyte esterase det ection by automated test stripOrdered By: Kieran Scott on 03-27-2022 Leukocyte esterase Auto test strip Ql (U) 2+ Negative [facility] Urobilinogen Auto test strip (U) [Mass/Vol]Ordered By: Kieran Scott on 03-27-2022 Urobilinogen (U) [Mass/Vol] Normal mg/dL Normal [facility] pH Auto test strip (U)Ordere d By: Kieran Scott on 03-27-2022 pH (U) 5.5 [pH] 5.0-9.0 [facility] Glucose Poct Glucometerson 0 03-26-2022 Commemt1 Glu2: Cleaned Meter [facility] Comment on above: Result Comment: PERF ORMED BY: [address] [place] [address] PATHOLOGIST [employer]ENTICE GUIDO ELIZALDE M.D. Performed By: #### G LULS #### Point of Care testing , Glucose [Mass/Vol] 263 mg/dL Normal [facility] Comment on above: Result Comment: [facility] Glucose Reference Range is dependent on time and content of last meal. Glucose of more than 200 mg/dL in a nonstressed, ambulatory subject supports the diagnosis of Diabetes Mellitus. Performed By: #### G LULS #### Point of Care testing , Commemt1 Glu2: Cleaned Meter [facility] Comment on above: Result Comment: PERF ORMED BY: [address] [address] PATHOLOGIST [employer] APPRENTICE GUIDO ELIZALDE M.D. Performed By: #### C BC, PT, PTT, CMP #### [address] Glucose [Mass/Vol] 232 mg/dL Normal [facility] Comment on above: Result Comment: Okay om Glucose Reference Range is dependent on time and content of last meal. Glucose of more than 200 mg/dL in a nonstressed, ambulatory subject supports the diagnosis of Diabetes Mellitus. Performed By: #### C BC, PT, PTT, CMP #### [address] Commemt1 Glu2: Cleaned Meter [facility] Comment on above: Result Comment: PERF ORMED BY: [place] [address] PATHOLOGIST [employer] APPRENTICE GUIDO ELIZALDE M.D. Performed By: #### C BC, PT, PTT, CMP #### [address] Glucose [Mass/Vol] 283 mg/dL Normal [facility] Comment on above: Result Comment: Okay om Glucose Reference Range is dependent on time and content of last meal. Glucose of more than 200 mg/dL in a nonstressed, ambulatory subject supports the diagnosis of Diabetes Mellitus. Performed By: #### C BC, PT, PTT, CMP #### [address] Commemt1 Glu2: Cleaned Meter [facility] Comment on above: Result Comment: PERF ORMED BY: [place] [address] PATHOLOGIST [employer] APPRENTICE GUIDO ELIZALDE M.D. Performed By: #### C BC, PT, PTT, CMP #### [address] Glucose [Mass/Vol] 191 mg/dL Normal [facility] Comment on above: Result Comment: Okay om Glucose Reference Range is dependent on time and content of last meal. Glucose of more than 200 mg/dL in a nonstressed, ambulatory subject supports the diagnosis of Diabetes Mellitus. Performed By: #### C BC, PT, PTT, CMP #### [facility] [address] [place] [address] [place] Dipstick and Microscopicon 0 03-25-2022 Appearance (U) Clear Normal Clear [facility] Comment on above: Order Comment: Name Collection Type:: Claire Catheter Performed By: #### C BC, PT, PTT, CMP #### [facility] [address] [place] [address] [place] Bacteria,Urine None Seen Normal None Seen [facility] Comment on above: Order Comment: Name Collection Type:: Claire Catheter Performed By: #### C BC, PT, PTT, CMP #### [facility] [address] [place] [address] [place] Bilirubin,Urine Negative Normal Negative [facility] Comment on above: Order Comment: Name Collection Type:: Claire Catheter Performed By: #### C BC, PT, PTT, CMP #### [place] [address] [place] Color (U) Yellow Normal Yellow [facility] Comment on above: Order Comment: Name Collection Type:: Claire Catheter Performed By: #### C BC, PT, PTT, CMP #### [facility] [address] [place] [address] [place] Glucose Ql (U) Normal Normal Normal [facility] Comment on above: Order Comment: Name Collection Type:: Claire Catheter Performed By: #### C BC, PT, PTT, CMP #### [facility] [address] [place] [address] [place] Hyaline Casts,Urine 0-8 Normal 0-8 [facility] Comment on above: Order Comment: Name Collection Type:: Claire Catheter Result Comment: PERF ORMED BY: [place] [address] PATHOLOGIST [employer] APPRENTICE GUIDO ELIZALDE M.D. Performed By: #### C BC, PT, PTT, CMP #### [facility] [address] [place] [address] [place] Ketones Ql (U) Negative Normal Negative [facility] Comment on above: Order Comment: Name Collection Type:: Claire Catheter Performed By: #### C BC, PT, PTT, CMP #### [address] Leukocyte esterase Test strip Ql (U) 3+ High Negative [facility] Comment on above: Order Comment: Name Collection Type:: Claire Catheter Performed By: #### C BC, PT, PTT, CMP #### [address] Nitrite,Urine Negative Normal Negative [facility] Comment on above: Order Comment: Name Collection Type:: Claire Catheter Performed By: #### C BC, PT, PTT, CMP #### [address] Occult Blood,Urine 3+ High Negative [facility] Comment on above: Order Comment: Name Collection Type:: Claire Catheter Result Comment: PERF ORMED BY: [place] [address] PATHOLOGIST [employer] APPRENTICE GUIDO ELIZALDE M.D. Performed By: #### C BC, PT, PTT, CMP #### [address] pH (U) 6.0 [pH] Normal 5.0-9.0 [facility] Comment on above: Order Comment: Name Collection Type:: Claire Catheter Performed By: #### C BC, PT, PTT, CMP #### [place] [address] [place] Protein (U) [Mass/Vol] 30 mg/dL High Negative [facility] Comment on above: Order Comment: Name Collection Type:: Claire Catheter Performed By: #### C BC, PT, PTT, CMP #### [place] [address] [place] RBC,Urine Innumerable High 0-4 [facility] Comment on above: Order Comment: Name Collection Type:: Claire Catheter Performed By: #### C BC, PT, PTT, CMP #### [place] [address] [place] Specificy [place],Urine 1.024 Normal 1.001-1.030 [facility] Comment on above: Order Comment: Name Collection Type:: Claire Catheter Performed By: #### C BC, PT, PTT, CMP #### [facility] [address] Squamous Epithelial Cell,Urine 0-1 Normal 0-2 [facility] Comment on above: Order Comment: Name Collection Type:: Claire Catheter Performed By: #### C BC, PT, PTT, CMP #### [address] Urobilinogen,Urine Normal Normal Normal [facility] Comment on above: Order Comment: Name Collection Type:: Claire Catheter Performed By: #### C BC, PT, PTT, CMP #### [address] WBC,Urine 20-49 High 0-4 [facility] Comment on above: Order Comment: Name Collection Type:: Claire Catheter Performed By: #### C BC, PT, PTT, CMP #### [address] Glucose Poct Glucometerson 0 03-25-2022 Glucose [Mass/Vol] 267 mg/dL Normal [facility] Comment on above: Result Comment: Okay Glucose Reference Range is dependent on time and content of last meal. Glucose of more than 200 mg/dL in a nonstressed, ambulatory subject supports the diagnosis of Diabetes Mellitus. PERFORMED BY: [place] [address] PATHOLOGIST [employer] APPRENTICE GUIDO ELIZALDE M.D. Performed By: #### C BC, PT, PTT, CMP #### [facility] [address] [place] [address] Commemt1 Glu2: Cleaned Meter Normal [facility] Comment on above: Result Comment: PERF ORMED BY: [place] [address] PATHOLOGIST [employer] APPRENTICE GUIDO ELIZALDE M.D. Performed By: #### C BC, PT, PTT, CMP #### [address] Glucose [Mass/Vol] 190 mg/dL Normal [facility] Comment on above: Result Comment: Okay om Glucose Reference Range is dependent on time and content of last meal. Glucose of more than 200 mg/dL in a nonstressed, ambulatory subject supports the diagnosis of Diabetes Mellitus. Performed By: #### C BC, PT, PTT, CMP #### [address] Commemt1 Glu2: Cleaned Meter [facility] Comment on above: Result Comment: PERF ORMED BY: [place] [address] PATHOLOGIST [employer] APPRENTICE GUIDO ELIZALDE M.D. Performed By: #### C BC, PT, PTT, CMP #### [address] Glucose [Mass/Vol] 192 mg/dL Normal [facility] Comment on above: Result Comment: Okay om Glucose Reference Range is dependent on time and content of last meal. Glucose of more than 200 mg/dL in a nonstressed, ambulatory subject supports the diagnosis of Diabetes Mellitus. Performed By: #### C BC, PT, PTT, CMP #### [address] Commemt1 Glu2: Cleaned Meter [facility] Comment on above: Result Comment: PERF ORMED BY: [place] [address] PATHOLOGIST [employer] APPRENTICE GUIDO ELIZALDE M.D. Performed By: #### C BC, PT, PTT, CMP #### [address] Glucose [Mass/Vol] 146 mg/dL Normal [facility] Comment on above: Result Comment: Okay om Glucose Reference Range is dependent on time and content of last meal. Glucose of more than 200 mg/dL in a nonstressed, ambulatory subject supports the diagnosis of Diabetes Mellitus. Performed By: #### C BC, PT, PTT, CMP #### [facility] [address] [place] [address] [place] Urine Cultureon 03-25-2022 Bacteria identified Cx Nom (U) Urine Culture Results 75,000 colonies/ml Mixed Bacterial Skin Contaminants 2 Days PERFORMED BY: [place] [address] PATHOLOGIST [employer] APPRENTICE GUIDO ELIZALDE M.D. [facility] Comment on above: Performed By: #### C BC, PT, PTT, CMP #### [facility] [address] [place] [address] Basic Metabolic Panelon 03-09 Calcium [Mass/Vol] 9.0 mg/dL Normal 8.2-10.2 [facility] Comment on above: Performed By: #### C BC, PT, PTT, CMP #### [address] Chloride [Moles/Vol] 102 mmol/L Normal 95-114 [facility] Comment on above: Performed By: #### C BC, PT, PTT, CMP #### [address] CO2 [Moles/Vol] 24.3 mmol/L Normal 22.0-30.0 [facility] Comment on above: Performed By: #### C BC, PT, PTT, CMP #### [facility] [address] [place] [address] Creatinine [Mass/Vol] 1.00 mg/dL Normal 0.44-1.03 [facility] Comment on above: Performed By: #### C BC, PT, PTT, CMP #### [facility] [address] [place] [address] [place] Creatinine Clr Calc Pharmacy 42.78 [facility] Comment on above: Result Comment: PERF ORMED BY: [place] [address] PATHOLOGIST [employer] APPRENTICE GUIDO ELIZALDE M.D. Performed By: #### C BC, PT, PTT, CMP #### [address] [address] [place] Estimated GFR ( Froylan > 60 Normal [facility] Comment on above: Result Comment: GFR estimated reference range: According to KDOQI guidelines, <60 ml/min/1.73m2 is sufficient to diagnose a patient with chronic kidney disease. Performed By: #### C BC, PT, PTT, CMP #### [facility] [address] Estimated GFR (Non- Am 53 Normal [facility] Comment on above: Performed By: #### C BC, PT, PTT, CMP #### [facility] [address] Glucose [Mass/Vol] 351 mg/dL High 70-100 [facility] Comment on above: Result Comment: Okay om Glucose Reference Range is dependent on time and content of last meal. Glucose of more than 200 mg/dL in a nonstressed, ambulatory subject supports the diagnosis of Diabetes Mellitus. ADA recommended reference range Performed By: #### C BC, PT, PTT, CMP #### [address] Potassium [Moles/Vol] 4.6 mmol/L Normal 3.5-5.1 [facility] Comment on above: Performed By: #### C BC, PT, PTT, CMP #### [address] Sodium [Moles/Vol] 137 mmol/L Normal 136-146 [facility] Comment on above: Performed By: #### C BC, PT, PTT, CMP #### [address] Urea nitrogen [Mass/Vol] 30 mg/dL High 9-23 [facility] Comment on above: Performed By: #### C BC, PT, PTT, CMP #### [facility] [address] [place] [address] COVID-19 FRon 03-24-2022 SARS-CoV-2 (COVID-19) RNA HARMONY+probe Ql (Unsp spec) Negative Normal Negative [facility] Comment on above: Order Comment: Healt hcare Worker?: N Result Comment: Testing for SARS-CoV-2 by RT-PCR This test was developed and its performance characteristics determined by [employer] ([employer]) and validated at the [facility]. This test has not been FDA cleared or approved. This test has been authorized by FDA under an Emergency Use Authorization (EUA). This test has been validated in accordance with the FDA's Guidance Document (Policy for Diagnostics Testing in Laboratories Certified to Perform High Complexity Testing under CLIA prior to Emergency Use Authorization for Coronavirus Disease-2019 during the Public Health Emergency) issued on January 09, 2020. This test is only authorized for the duration of time the declaration that circumstances exist justifying the authorization of the emergency use of in vitro diagnostic tests for detection of SARS-CoV-2 virus and/or diagnosis of COVID-19 infection under section 564(b)(1) of the Act, 21 U.S.C. 360bbb-3(b)(1), unless the authorization is terminated or revoked sooner. PERFORMED BY: [address] [place] [address] PATHOLOGIST [employer]HOU[employer]RICIAN APPRENTICE GUIDO ELIZALDE M.D. Performed By: #### G LULS #### Point of Care testing , COVID-19 Positive/NegativeOr dered By: Howard Rivera on 03-24-2022 SARS-CoV-2 (COVID-19) N gene HARMONY+probe Ql (Resp) Negative Negative [facility] Comment on above: Testing for SARS-CoV -2 by RT-PCR This test was developed and its performance characteristics determined by [employer] and validated at the [facility]. This test has not been FDA cleared or approved. This test has been authorized by FDA under an Emergency Use Authorization (EUA). This test has been validated in accordance with the FDA's Guidance Document (Policy for Diagnostics Testing in Laboratories Certified to Perform High Complexity Testing under CLIA prior to Emergency Use Authorization for Coronavirus Disease-2019 during the Public Health Emergency) issued on January 09, 2020. This test is only authorized for the duration of time the declaration that circumstances exist justifying the authorization of the emergency use of in vitro diagnostic tests for detection of SARS-CoV-2 virus and/or diagnosis of COVID-19 infection under section 564(b)(1) of the Act, 21 U.S.C. 360bbb-3(b)(1), unless the authorization is terminated or revoked sooner. Complete Blood Count Auto Di ffon 03-24-2022 Basophils (Bld) [#/Vol] 0.0 10*3/uL Normal 0.0-0.2 [facility] Comment on above: Result Comment: PERF ORMED BY: [place] [address] PATHOLOGIST [employer]HOUSE ELECT[employer]ICIAN APPRENTICE GUIDO ELIZALDE M.D. Performed By: #### C BC, PT, PTT, CMP #### [address] Basophils/100 WBC (Bld) 0.1 % Normal . [facility] Comment on above: Performed By: #### C BC, PT, PTT, CMP #### [address] Eosinophils (Bld) [#/Vol] 0.0 10*3/uL Normal 0.0-0.45 [facility] Comment on above: Performed By: #### C BC, PT, PTT, CMP #### [address] Eosinophils/100 WBC (Bld) 0.0 % Normal . [facility] Comment on above: Performed By: #### C BC, PT, PTT, CMP #### [address] Erythrocyte distribution width (RBC) [Ratio] 13.5 % Normal 11.9-15.3 [facility] Comment on above: Performed By: #### C BC, PT, PTT, CMP #### [address] Hematocrit (Bld) [Volume fraction] 41.1 % Normal 34.0-46.4 [facility] Comment on above: Performed By: #### C BC, PT, PTT, CMP #### [address] Hemoglobin (Bld) [Mass/Vol] 13.5 g/dL Normal 11.8-15.4 [facility] Comment on above: Performed By: #### C BC, PT, PTT, CMP #### [address] Lymphocytes (Bld) [#/Vol] 0.8 10*3/uL Low 1.00-4.8 [facility] Comment on above: Performed By: #### C BC, PT, PTT, CMP #### [address] Lymphocytes/100 WBC (Bld) 11.1 % Normal . [facility] Comment on above: Performed By: #### C BC, PT, PTT, CMP #### [address] MCH (RBC) [Entitic mass] 30.0 pg Normal 24.7-34.3 [facility] Comment on above: Performed By: #### C BC, PT, PTT, CMP #### [address] MCV (RBC) [Entitic vol] 91.0 fL Normal 80-100 [facility] Comment on above: Performed By: #### C BC, PT, PTT, CMP #### [address] Mean Corpuscular HGB Conc 33.0 g/dL Normal 32.0-35.0 [facility] Comment on above: Performed By: #### C BC, PT, PTT, CMP #### [place] [address] [place] Monocytes (Bld) [#/Vol] 0.1 10*3/uL Normal 0.0-0.8 [facility] Comment on above: Performed By: #### C BC, PT, PTT, CMP #### [place] [address] [place] Monocytes/100 WBC (Bld) 0.8 % Normal . [facility] Comment on above: Performed By: #### C BC, PT, PTT, CMP #### [facility] [address] [place] [address] [place] Neutrophils (Bld) [#/Vol] 6.6 10*3/uL Normal 1.8-7.7 [facility] Comment on above: Performed By: #### C BC, PT, PTT, CMP #### [facility] [address] Neutrophils/100 WBC (Bld) 88.0 % Normal . [facility] Comment on above: Performed By: #### C BC, PT, PTT, CMP #### [address] Nucleated RBC/100 WBC (Bld) [Ratio] 0.0 % Normal 0-0.5 [facility] Comment on above: Performed By: #### C BC, PT, PTT, CMP #### [address] Platelet mean volume (Bld) [Entitic vol] 8.1 fL Normal 6.3-10.7 [facility] Comment on above: Performed By: #### C BC, PT, PTT, CMP #### [place] [address] [place] Platelets (Bld) [#/Vol] 252 10*3/uL Normal 150-450 [facility] Comment on above: Performed By: #### C BC, PT, PTT, CMP #### [place] [address] [place] RBC (Bld) [#/Vol] 4.52 10*6/uL Normal 3.60-5.00 [facility] Comment on above: Performed By: #### C BC, PT, PTT, CMP #### [place] [address] [place] WBC (Bld) [#/Vol] 7.5 10*3/uL Normal 4.5-11.0 [facility] Comment on above: Performed By: #### C BC, PT, PTT, CMP #### [address] Glucose Glucometer ([facility]) [M ass/Vol]Ordered By: Perlita Gautam on 03-24-2022 Glucose [Mass/Vol] 218 mg/dL [facility] Comment on above: Random Glucose Refer ence Range is dependent on time and content of last meal. Glucose of more than 200 mg/dL in a nonstressed, ambulatory subject supports the diagnosis of Diabetes Mellitus. Glucose Poct Glucometerson 0 03-24-2022 Glucose [Mass/Vol] 224 mg/dL Normal [facility] Comment on above: Result Comment: Okay Glucose Reference Range is dependent on time and content of last meal. Glucose of more than 200 mg/dL in a nonstressed, ambulatory subject supports the diagnosis of Diabetes Mellitus. PERFORMED BY: [place] [address] PATHOLOGIST POWERHOUSE ELECTRICIAN APPRENTICE GUIDO ELIZALDE M.D. Performed By: #### C BC, PT, PTT, CMP #### [address] Commemt1 Glu2: Cleaned Meter [facility] Comment on above: Result Comment: PERF ORMED BY: [place] [address] PATHOLOGIST POWERHOUSE ELECTRICIAN APPRENTICE GUIDO ELIZALDE M.D. Performed By: #### C BC, PT, PTT, CMP #### [address] Glucose [Mass/Vol] 306 mg/dL Normal [facility] Comment on above: Result Comment: Okay om Glucose Reference Range is dependent on time and content of last meal. Glucose of more than 200 mg/dL in a nonstressed, ambulatory subject supports the diagnosis of Diabetes Mellitus. Performed By: #### C BC, PT, PTT, CMP #### [facility] [address] [place] [address] Commemt1 Glu2: Cleaned Meter [facility] Comment on above: Result Comment: PERF ORMED BY: [place] [address] PATHOLOGIST [employer]OWERHOUSE ELECTRICIAN APPRENTICE GUIDO ELIZALDE M.D. Performed By: #### C BC, PT, PTT, CMP #### [facility] [address] Glucose [Mass/Vol] 392 mg/dL Normal [facility] Comment on above: Result Comment: Okay om Glucose Reference Range is dependent on time and content of last meal. Glucose of more than 200 mg/dL in a nonstressed, ambulatory subject supports the diagnosis of Diabetes Mellitus. Performed By: #### C BC, PT, PTT, CMP #### [facility] [address] Glucose [Mass/Vol] 277 mg/dL Normal [facility] Comment on above: Result Comment: Okay om Glucose Reference Range is dependent on time and content of last meal. Glucose of more than 200 mg/dL in a nonstressed, ambulatory subject supports the diagnosis of Diabetes Mellitus. PERFORMED BY: [place] [address] PATHOLOGIST [employer]OWERHOUSE ELECTRICIAN APPRENTICE GUIDO ELIZALDE M.D. Performed By: #### C BC, PT, PTT, CMP #### [address] Glucose [Mass/Vol] 218 mg/dL Normal [facility] Comment on above: Result Comment: Okay om Glucose Reference Range is dependent on time and content of last meal. Glucose of more than 200 mg/dL in a nonstressed, ambulatory subject supports the diagnosis of Diabetes Mellitus. PERFORMED BY: [place] [address] PATHOLOGIST [employer]OWERHOUSE ELECTRICIAN APPRENTICE GUIDO ELIZALDE M.D. Performed By: #### C BC, PT, PTT, CMP #### [address] Laboratory - Microbiology an d Antimicrobial susceptibilityOrdered By: Howard Rivera on 03-24-2022 SARS-CoV-2 (COVID-19) RNA HARMONY+probe Ql (Unsp spec) N/A [facility] Activated partial thrombopla stin time (aPTT) in platelet poor plasma by coagulation aOrdered By: Howard Rivera on 03-23-2022 aPTT Coag (PPP) [Time] 32.2 s 25.1-36.[address] [facility] Albumin [Mass/volume] in Ser um or PlasmaOrdered By: Howard Rivera on 03-23-2022 Albumin [Mass/Vol] 3.6 g/dL 3.2-5.5 [facility] Basophils Auto (Bld) [#/Vol] Ordered By: Howard Rivera on 03-23-2022 Basophils (Bld) [#/Vol] 0.1 10*3/uL 0.0-0.2 [facility] Basophils/100 WBC Auto (Bld) Ordered By: Howard Rivera on 03-23-2022 Basophils/100 WBC (Bld) 0.6 % [facility] Bilirubin Test strip Ql (U)O rdered By: Howard Rivera on 03-23-2022 Bilirubin Ql (U) Negative Negative [facility] Blood hemoglobin measurement (mass/volume)Ordered By: Howard Mendozaton on 03-23-2022 Hemoglobin (Bld) [Mass/Vol] 14.3 g/dL 11.8-15.4 [facility] Blood leukocytes automated c ount (number/volume)Ordered By: Howard Rivera on 03-23-2022 WBC (Bld) [#/Vol] 8.6 10*3/uL 4.5-11.0 [facility] COVID-19 Antigenon 2 COVID-19 Antigen Healthcare Worker?: N Reference Range: Negative Negative results, from patients with symptom onset beyond five days, should be treated as presumptive and confirmation with a molecular assay, if necessary, for patient management, may be performed. Negative results do not rule out COVID-19 and should not be used as the sole basis for treatment or patient management decisions, including infection control decisions. Negative results should be considered in the context of a patient's recent exposures, history and the presence of clinical signs and symptoms consistent with COVID-19. The Cecily SARS Antigen DRAKE does not differentiate between SARS-CoV and SARS-CoV-2. This test was developed and its performance characteristic determined by [employer] and validated at [facility]. This test has not been FDA cleared or approved. This test has been authorized by FDA under an Emergency Use Authorization (EUA). This test has been validated in accordance with the FDA's Guidance Document (Policy for Diagnostics Testing in Laboratories Certified to Perform High Complexity Testing under CLIA prior to Emergency Use Authorization for Coronavirus Disease-2019 during the Public Health Emergency) issued on January 09, 2020. This test is only authorized for the duration of time the declaration that circumstances exist justifying the authorization of the emergency use of in vitro diagnostic tests for detection of SARS-CoV-2 virus and/or diagnosis of COVID-19 infection under section 564(b)(1) of the Act, 21 U.S.C. 360bbb-3(b)(1), unless the authorization is terminated or revoked sooner. SARS-CoV+SARS-CoV-2 (COVID-19) Ag [Presence] in Respiratory specimen by Rapid immunoassay Negative for SARS Antigen by [employer] PERFORMED BY: [place] [address] PATHOLOGIST POWERHOUSE ELECTRICIAN APPRENTICE GUIDO ELIZALDE M.D. Normal [facility] Comment on above: Performed By: #### C BC, PT, PTT, CMP #### [address] COVID-19 SOFIAOrdered By: Jed Rivera on 03-23-2022 SARS-CoV+SARS-CoV-2 (COVID-19) Ag IA.rapid Ql (Resp) Negative Negative [facility] Comment on above: This is a duplicate Cecily SARS Antigen (DRAKE) result to be used for statistical tracking purpose only. Color Auto (U)Ordered By: Jed Rivera on 03-23-2022 Color (U) Yellow Yellow [facility] Complete Blood Count Auto Di ffon 03-23-2022 Basophils (Bld) [#/Vol] 0.1 10*3/uL Normal 0.0-0.2 [facility] Comment on above: Result Comment: PERF ORMED BY: [place] [address] PATHOLOGIST POWERHOUSE ELECTRICIAN APPRENTICE GUIDO ELIZALDE M.D. Performed By: #### C BC, PT, PTT, CMP #### [facility] [address] Basophils/100 WBC (Bld) 0.6 % Normal . [facility] Comment on above: Performed By: #### C BC, PT, PTT, CMP #### [facility] [address] Eosinophils (Bld) [#/Vol] 0.2 10*3/uL Normal 0.0-0.45 [facility] Comment on above: Performed By: #### C BC, PT, PTT, CMP #### [address] Eosinophils/100 WBC (Bld) 2.3 % Normal . [facility] Comment on above: Performed By: #### C BC, PT, PTT, CMP #### [address] Erythrocyte distribution width (RBC) [Ratio] 13.8 % Normal 11.9-15.3 [facility] Comment on above: Performed By: #### C BC, PT, PTT, CMP #### [address] Hematocrit (Bld) [Volume fraction] 43.4 % Normal 34.0-46.4 [facility] Comment on above: Performed By: #### C BC, PT, PTT, CMP #### [place] [address] [place] Hemoglobin (Bld) [Mass/Vol] 14.3 g/dL Normal 11.8-15.4 [facility] Comment on above: Performed By: #### C BC, PT, PTT, CMP #### [facility] [address] [place] [address] [place] Lymphocytes (Bld) [#/Vol] 3.3 10*3/uL Normal 1.00-4.8 [facility] Comment on above: Performed By: #### C BC, PT, PTT, CMP #### [place] [address] [place] Lymphocytes/100 WBC (Bld) 38.7 % Normal . [facility] Comment on above: Performed By: #### C BC, PT, PTT, CMP #### [address] MCH (RBC) [Entitic mass] 29.9 pg Normal 24.7-34.3 [facility] Comment on above: Performed By: #### C BC, PT, PTT, CMP #### [address] MCV (RBC) [Entitic vol] 91.0 fL Normal 80-100 [facility] Comment on above: Performed By: #### C BC, PT, PTT, CMP #### [address] Mean Corpuscular HGB Conc 32.9 g/dL Normal 32.0-35.0 [facility] Comment on above: Performed By: #### C BC, PT, PTT, CMP #### [address] Monocytes (Bld) [#/Vol] 0.8 10*3/uL Normal 0.0-0.8 [facility] Comment on above: Performed By: #### C BC, PT, PTT, CMP #### [address] Monocytes/100 WBC (Bld) 9.2 % Normal . [facility] Comment on above: Performed By: #### C BC, PT, PTT, CMP #### [address] Neutrophils (Bld) [#/Vol] 4.2 10*3/uL Normal 1.8-7.7 [facility] Comment on above: Performed By: #### C BC, PT, PTT, CMP #### [address] Neutrophils/100 WBC (Bld) 49.2 % Normal . [facility] Comment on above: Performed By: #### C BC, PT, PTT, CMP #### [address] Nucleated RBC/100 WBC (Bld) [Ratio] 0.0 % Normal 0-0.5 [facility] Comment on above: Performed By: #### C BC, PT, PTT, CMP #### [address] Platelet mean volume (Bld) [Entitic vol] 7.8 fL Normal 6.3-10.7 [facility] Comment on above: Performed By: #### C BC, PT, PTT, CMP #### [address] Platelets (Bld) [#/Vol] 295 10*3/uL Normal 150-450 [facility] Comment on above: Performed By: #### C BC, PT, PTT, CMP #### [address] RBC (Bld) [#/Vol] 4.77 10*6/uL Normal 3.60-5.00 [facility] Comment on above: Performed By: #### C BC, PT, PTT, CMP #### [address] WBC (Bld) [#/Vol] 8.6 10*3/uL Normal 4.5-11.0 [facility] Comment on above: Performed By: #### C BC, PT, PTT, CMP #### [address] Comprehensive Metabolic Pane michael 03-23-2022 Albumin [Mass/Vol] 3.6 g/dL Normal 3.2-5.5 [facility] Comment on above: Performed By: #### C BC, PT, PTT, CMP #### [address] Albumin/Globulin [Mass ratio] 1.1 {ratio} Normal [facility] Comment on above: Performed By: #### C BC, PT, PTT, CMP #### [address] ALP [Catalytic activity/Vol] 48 U/L Normal 32-92 [facility] Comment on above: Performed By: #### C BC, PT, PTT, CMP #### [facility] [address] [place] [address] [place] ALT [Catalytic activity/Vol] 18 U/L Normal 10-60 [facility] Comment on above: Performed By: #### C BC, PT, PTT, CMP #### [facility] [address] [place] [address] [place] AST [Catalytic activity/Vol] 22 U/L Normal 10-42 [facility] Comment on above: Performed By: #### C BC, PT, PTT, CMP #### [facility] [address] [place] [address] [place] Bilirubin [Mass/Vol] 0.6 mg/dL Normal 0.3-1.2 [facility] Comment on above: Performed By: #### C BC, PT, PTT, CMP #### [facility] [address] [place] [address] [place] Calcium [Mass/Vol] 9.6 mg/dL Normal 8.2-10.2 [facility] Comment on above: Performed By: #### C BC, PT, PTT, CMP #### [facility] [address] [place] [address] [place] Chloride [Moles/Vol] 103 mmol/L Normal 95-114 [facility] Comment on above: Performed By: #### C BC, PT, PTT, CMP #### [facility] [address] [place] [address] [place] CO2 [Moles/Vol] 27.4 mmol/L Normal 22.0-30.0 [facility] Comment on above: Performed By: #### C BC, PT, PTT, CMP #### [facility] [address] [place] [address] [place] Creatinine [Mass/Vol] 0.92 mg/dL Normal 0.44-1.03 [facility] Comment on above: Performed By: #### C BC, PT, PTT, CMP #### [facility] [address] [place] [address] [place] Creatinine Clr Calc Pharmacy 46.80 Normal [facility] Comment on above: Result Comment: PERF ORMED BY: [place] [address] PATHOLOGIST [employer] E[employer]ICIAN APPRENTICE GUIDO ELIZALDE M.D. Performed By: #### C BC, PT, PTT, CMP #### [facility] [address] Estimated GFR ( Froylan > 60 [facility] Comment on above: Result Comment: GFR estimated reference range: According to KDOQI guidelines, <60 ml/min/1.73m2 is sufficient to diagnose a patient with chronic kidney disease. Performed By: #### C BC, PT, PTT, CMP #### [facility] [address] Estimated GFR (Non- Am 59 [facility] Comment on above: Performed By: #### C BC, PT, PTT, CMP #### [address] Globulin (S) [Mass/Vol] 3.2 g/dL Normal [facility] Comment on above: Performed By: #### C BC, PT, PTT, CMP #### [address] Glucose [Mass/Vol] 114 mg/dL High 70-100 [facility] Comment on above: Result Comment: Okay Glucose Reference Range is dependent on time and content of last meal. Glucose of more than 200 mg/dL in a nonstressed, ambulatory subject supports the diagnosis of Diabetes Mellitus. ADA recommended reference range Performed By: #### C BC, PT, PTT, CMP #### [address] Potassium [Moles/Vol] 4.4 mmol/L Normal 3.5-5.1 [facility] Comment on above: Performed By: #### C BC, PT, PTT, CMP #### [address] Protein [Mass/Vol] 6.8 g/dL Normal 6.1-7.9 [facility] Comment on above: Performed By: #### C BC, PT, PTT, CMP #### [facility] [address] [place] [id number] [place] Sodium [Moles/Vol] 141 mmol/L Normal 136-146 [facility] Comment on above: Performed By: #### C BC, PT, PTT, CMP #### [facility] [address] [place] [address] [place] Urea nitrogen [Mass/Vol] 24 mg/dL High 9- [facility] Comment on above: Performed By: #### C BC, PT, PTT, CMP #### [facility] [address] Creatinine and Glomerular fi ltration rate.predicted panel (S/P/Bld)Ordered By: Howard Rivera on 03-23-2022 Creatinine [Mass/Vol] 0.92 mg/dL 0.44-1.03 [facility] ECG 12 lead ECGon 03-23-2022 ECG 12 lead ECG [facility] [address] [place] [address] [place] [address] Electrocardiograph Report Signed Patient: Saeed Sarabia MR#: [id number] : 1940 Acct:[id number] Age/Sex: 81 / F ADM Date: 03/24/22 Loc: Room: [address] [place] [address] Type: DIS INOo Attending Dr: Rupert Anthony MD Ordering Provider: Howard Rivera DO Date of Service: 03/23/22 ECG/ECG 12 lead ECG: Neuro Symptoms/Deficit Copies to: Test Reason : Blood Pressure : / mmHG Vent. Rate : 070 BPM Atrial Rate : 070 BPM P-R Int : 138 ms QRS Dur : 092 ms QT Int : 396 ms P-R-T Axes : 000 049 071 degrees QTc Int : 427 ms Normal sinus rhythm Normal ECG When compared with ECG of 09-MAR-2022 13:39, Previous ECG has undetermined rhythm, needs review Left bundle branch block is no longer present Confirmed by Howard Rivera DO ([id number]) on 03/24/2022 2:06:42 AM Referred By: Electronically Signed By:Howard Rivera DO Transcribed By: MUS Signed By Howard Rivera DO 03/24 0206 Normal [facility] Eosinophils Auto (Bld) [#/Vo l]Ordered By: Howard Rivera on 03-23-2022 Eosinophils (Bld) [#/Vol] 0.2 10*3/uL 0.0-0.45 [facility] Eosinophils/100 WBC Auto (Bl d)Ordered By: Howard Rivera on 03-23-2022 Eosinophils/100 WBC (Bld) 2.3 % [facility] Erythrocyte distribution wid th Auto (RBC) [Ratio]Ordered By: Howard Rivera on 03-23-2022 Erythrocyte distribution width (RBC) [Ratio] 13.8 % 11.9-15.3 [facility] Estimated glomerular filtrat ion rate (GFR) non- AmericanOrdered By: Howard Rivera on 03-23-2022 GFR/1.73 sq M.predicted among non-blacks MDRD (S/P/Bld) [Vol rate/Area] 59 mL/Min [facility] Globulin Calc (S) [Mass/Vol] Ordered By: Howard Rivera on 03-23-2022 Globulin (S) [Mass/Vol] 3.2 g/dL [facility] Hematocrit Auto (Bld) [Volum e fraction]Ordered By: Howard Rivera on 03-23-2022 Hematocrit (Bld) [Volume fraction] 43.4 % 34.0-46.4 [facility] Ketones Auto test strip (U) [Mass/Vol]Ordered By: Howard Rivera on 03-23-2022 Ketones (U) [Mass/Vol] Trace Negative [facility] - CoagulationOrde red By: Howard Rivera on 03-23-2022 PT Coag (PPP) [Time] 15.7 s 9.0-12.9 [facility] Laboratory - Hematology and Cell countsOrdered By: Howard Rivera on 03-23-2022 Nucleated RBC/100 WBC (Bld) [Ratio] 0.0 % 0-0.5 [facility] Lymphocytes Auto (Bld) [#/Vo l]Ordered By: Howard Rivera on 03-23-2022 Lymphocytes (Bld) [#/Vol] 3.3 10*3/uL 1.00-4.8 [facility] Lymphocytes/100 WBC Auto (Bl d)Ordered By: Howard Rivera on 03-23-2022 Lymphocytes/100 WBC (Bld) 38.7 % [facility] MCH Auto (RBC) [Entitic mass ]Ordered By: Howard Rivera on 03-23-2022 MCH (RBC) [Entitic mass] 29.9 pg 24.7-34.3 [facility] MCHC Auto (RBC) [Mass/Vol]Or dered By: Howard Rivera on 03-23-2022 MCHC (RBC) [Mass/Vol] 32.9 g/dL 32.0-35.0 [facility] MCV Auto (RBC) [Entitic vol] Ordered By: Howard Rivera on 03-23-2022 MCV (RBC) [Entitic vol] 91.0 fL 80-100 [facility] Monocytes Auto (Bld) [#/Vol] Ordered By: Howard Rivera on 03-23-2022 Monocytes (Bld) [#/Vol] 0.8 10*3/uL 0.0-0.8 [facility] Monocytes/100 WBC Auto (Bld) Ordered By: Howard Rivera on 03-23-2022 Monocytes/100 WBC (Bld) 9.2 % [facility] Neutrophils Auto (Bld) [#/Vo l]Ordered By: Howard Rivera on 03-23-2022 Neutrophils (Bld) [#/Vol] 4.2 10*3/uL 1.8-7.7 [facility] Neutrophils/100 WBC Auto (Bl d)Ordered By: Howard Rivera on 03-23-2022 Neutrophils/100 WBC (Bld) 49.2 % [facility] Nitrite Test strip Ql (U)Ord ered By: Howard Rivera on 03-23-2022 Nitrite Ql (U) Negative Negative [facility] No Panel InformationOrdered By: Howard Rivera on 03-23-2022 Estimated GFR () > 60 mL/Min [facility] Comment on above: GFR estimated refere nce range: According to KDOQI guidelines, <60 ml/min/1.73m2 is sufficient to diagnose a patient with chronic kidney disease. Pharmacy Creatinine Clearance (Chem 46.80 [facility] SARS Antigen (LFIA) [facility] SARS Antigen (LFIA) [facility] Partial Thromboplastin Timeo n 03-23-2022 aPTT Coag (Bld) [Time] 32.2 s Normal 25.1-36.5 [facility] Comment on above: Result Comment: PERF ORMED BY: [facility] [address] [place] [address] PATHOLOGIST [employer]ICE GUIDO ELIZALDE M.D. Performed By: #### C BC, PT, PTT, CMP #### [address] Platelet mean volume Auto (B ld) [Entitic vol]Ordered By: Howard Rivera on 03-23-2022 Platelet mean volume (Bld) [Entitic vol] 7.8 fL 6.3-10.7 [facility] Platelet poor plasma interna tional normalized ratio (INR) by coagulation assay (relatOrdered By: Howard Rivera on 03-23-2022 INR Coag (PPP) [Relative time] 1.4 {INR} [facility] Comment on above: INR Therapeutic Rang e A) Pre- and Peroperative OAT started two weeks before surgery. NOT HIP SURGERY: 1.5 - 2.5 HIP SURGERY: 2 - 3 B) Primary and secondary prevention of venous THROMBOSIS: 2 - 3 C) Active venous thrombosis, pulmonary embolism and prevention of recurrent venous thrombosis: 2 - 3 D) Prevention of arterial thromboembolism including patients with mechanical heart valves: 3 - 4.5 Platelets Auto (Bld) [#/Vol] Ordered By: Howard Rivera on 03-23-2022 Platelets (Bld) [#/Vol] 295 10*3/uL 150-450 [facility] Protein Auto test strip (U) [Mass/Vol]Ordered By: Howard Rivera on 03-23-2022 Protein (U) [Mass/Vol] Negative Negative [facility] Protein [Mass/volume] in Ser um or PlasmaOrdered By: Howard Rivera on 03-23-2022 Protein [Mass/Vol] 6.8 g/dL 6.1-7.9 [facility] Prothrombin Time INRon 03-23 INR Coag (PPP) [Relative time] 1.4 {INR} Normal [facility] Comment on above: Result Comment: INR Therapeutic Range A) Pre- and Peroperative OAT started two weeks before surgery. NOT HIP SURGERY: 1.5 - 2.5 HIP SURGERY: 2 - 3 B) Primary and secondary prevention of venous THROMBOSIS: 2 - 3 C) Active venous thrombosis, pulmonary embolism and prevention of recurrent venous thrombosis: 2 - 3 D) Prevention of arterial thromboembolism including patients with mechanical heart valves: 3 - 4.5 Performed By: #### C BC, PT, PTT, CMP #### [facility] [address] PT Coag (PPP) [Time] 15.7 s High 9.0-12.9 [facility] Comment on above: Performed By: #### C BC, PT, PTT, CMP #### [facility] [address] RBC Auto (Bld) [#/Vol]Ordere d By: Howard Rivera on 03-23-2022 RBC (Bld) [#/Vol] 4.77 10*6/uL 3.60-5.00 [facility] Serum or plasma alanine [place] otransferase measurement without P-5'-P (enzymatic activiOrdered By: Howard Rivera on 03-23-2022 ALT No additional P-5'-P [Catalytic activity/Vol] 18 U/L 10-60 [facility] Serum or plasma albumin/glob ulin mass ratioOrdered By: Howard Rivera on 03-23-2022 Albumin/Globulin [Mass ratio] 1.1 {ratio} [facility] Serum or plasma alkaline dolly sphatase measurement (enzymatic activity/volume)Ordered By: Howard Rivera on 03-23-2022 ALP [Catalytic activity/Vol] 48 U/L 32-92 [facility] Serum or plasma aspartate am inotransferase measurement (enzymatic activity/volume)Ordered By: Howard Rivera on 03-23-2022 AST [Catalytic activity/Vol] 22 U/L 10-42 [facility] Serum or plasma calcium nakul urement (mass/volume)Ordered By: Howard Rivera on 03-23-2022 Calcium [Mass/Vol] 9.6 mg/dL 8.2-10.2 [facility] Serum or plasma chloride elizabeth surement (moles/volume)Ordered By: Howard Rivera on 03-23-2022 Chloride [Moles/Vol] 103 mmol/L 95-114 [facility] Serum or plasma glucose nakul urement (mass/volume)Ordered By: Howard Rivera on 03-23-2022 Glucose [Mass/Vol] 114 mg/dL 70-100 [facility] Comment on above: ADA recommended refe rence range Random Glucose Reference Range is dependent on time and content of last meal. Glucose of more than 200 mg/dL in a nonstressed, ambulatory subject supports the diagnosis of Diabetes Mellitus. Serum or plasma potassium me asurement (moles/volume)Ordered By: Howard Rivera on 03-23-2022 Potassium [Moles/Vol] 4.4 mmol/L 3.5-5.1 [facility] Serum or plasma sodium measu rement (moles/volume)Ordered By: Howard Rivera on 03-23-2022 Sodium [Moles/Vol] 141 mmol/L 136-146 [facility] Serum or plasma total biliru bin measurement (mass/volume)Ordered By: Howard Rivera on 03-23-2022 Bilirubin [Mass/Vol] 0.6 mg/dL 0.3-1.2 [facility] Serum or plasma total carbon dioxide measurement (moles/volume)Ordered By: Howard Rivera on 03-23-2022 CO2 [Moles/Vol] 27.4 mmol/L 22.0-30.0 [facility] Serum or plasma urea nitroge n measurement (mass/volume)Ordered By: Howard Rivera on 03-23-2022 Urea nitrogen [Mass/Vol] 24 mg/dL 9-23 [facility] Cecily Ag Negativeon 03-23-20 Cecily Ag Negative Negative Normal Negative [facility] Comment on above: Result Comment: This is a duplicate Cecily SARS Antigen (DRAKE) result to be used for statistical tracking purpose only. PERFORMED BY: [place] [address] PATHOLOGIST [employer]ICE GUIDO ELIZALDE M.D. Performed By: #### G INOCENTE #### Point of Care testing , Specific gravity Auto test s trip (U) [Rel density]Ordered By: Howard Rivera on 03-23-2022 Specific gravity (U) [Rel density] 1.017 1.001-1.030 [facility] Troponin I High Sensitivityo n 03-23-2022 Troponin I High Sensitivity 6 pg/mL Normal 0- [facility] Comment on above: Result Comment: PERF ORMED BY: [place] [address] PATHOLOGIST [employer]ICE GUIDO ELIZALDE M.D. Performed By: #### C BC, PT, PTT, CMP #### [facility] [address] [place] [address] Troponin I.cardiac [Mass/vol ume] in Serum or Plasma by High sensitivity methodOrdered By: Howard Rivera on 03-23-2022 Troponin I.cardiac High sensitivity method [Mass/Vol] 6 pg/mL [facility] Urinalysison 03-23-2022 Appearance (U) Clear Normal Clear [facility] Comment on above: Order Comment: Name Collection Type:: Straight Catheter Performed By: #### U A #### [facility] [address] [place] [address] [place] Bilirubin,Urine Negative Normal Negative [facility] Comment on above: Order Comment: Name Collection Type:: Straight Catheter Performed By: #### U A #### [facility] [address] [place] [address] [place] Color (U) Yellow Normal Yellow [facility] Comment on above: Order Comment: Name Collection Type:: Straight Catheter Performed By: #### U A #### [facility] [address] [place] [address] [place] Glucose Ql (U) Normal Normal Normal [facility] Comment on above: Order Comment: Name Collection Type:: Straight Catheter Performed By: #### U A #### [address] Ketones Ql (U) Trace High Negative [facility] Comment on above: Order Comment: Name Collection Type:: Straight Catheter Performed By: #### U A #### [address] Leukocyte esterase Test strip Ql (U) Negative Normal Negative [facility] Comment on above: Order Comment: Name Collection Type:: Straight Catheter Performed By: #### U A #### [address] Nitrite,Urine Negative Normal Negative [facility] Comment on above: Order Comment: Name Collection Type:: Straight Catheter Performed By: #### U A #### [address] Occult Blood,Urine Negative Normal Negative [facility] Comment on above: Order Comment: Name Collection Type:: Straight Catheter Result Comment: PERF ORMED BY: [place] [address] PATHOLOGIST [employer]ICE GUIDO ELIZALDE M.D. Performed By: #### U A #### [address] pH (U) 7.5 [pH] Normal 5.0-9.0 [facility] Comment on above: Order Comment: Name Collection Type:: Straight Catheter Performed By: #### U A #### [address] Protein,Urine Negative Normal Negative [facility] Comment on above: Order Comment: Name Collection Type:: Straight Catheter Performed By: #### U A #### [place] [address] [place] Specificy [place],Urine 1.017 Normal 1.001-1.030 [facility] Comment on above: Order Comment: Name Collection Type:: Straight Catheter Performed By: #### U A #### [address] Urobilinogen,Urine Normal Normal Normal [facility] Comment on above: Order Comment: Name Collection Type:: Straight Catheter Performed By: #### U A #### [address] Urine clarity by refractomet ry automatedOrdered By: Howard Rivera on 03-23-2022 Clarity Refractometry automated (U) Clear Clear [facility] Urine glucose measurement by automated test strip (mass/volume)Ordered By: Howard Rivera on 03-23-2022 Glucose Auto test strip (U) [Mass/Vol] Normal mg/dL Normal [facility] Urine hemoglobin detection b y automated test stripOrdered By: Howard Rivera on 03-23-2022 Hemoglobin Auto test strip Ql (U) Negative Negative [facility] Urine leukocyte esterase det ection by automated test stripOrdered By: Howard Rivera on 03-23-2022 Leukocyte esterase Auto test strip Ql (U) Negative Negative [facility] Urobilinogen Auto test strip (U) [Mass/Vol]Ordered By: Howard Rivera on 03-23-2022 Urobilinogen (U) [Mass/Vol] Normal mg/dL Normal [facility] XR chest 1V portableon 03-23 XR chest 1V portable [facility] [place] [address] XRay Report Signed Patient: Saeed Sarabia MR#: [id number] : 1940 Acct:[id number] Age/Sex: 81 / F ADM Date: 03/23/22 Loc: ER Room: Type: [facility] ER Attending Dr: Copies to: Howard Rivera DO Ordering Provider: Howard Rivera DO Date of Service: 03/23/22 XR/XR chest 1V portable: Neuro Symptoms/Deficit XR chest 1V portable 03/23/2022 7:22 PM SIGNS AND SYMPTOMS: Right-sided foot drop , history of A. fib PROTOCOL: Frontal radiographs of the chest COMPARISON: None FINDINGS: The trachea is midline. Atherosclerotic changes are present in the thoracic aorta. The heart and mediastinal structures are within normal limits. Interstitial prominence is present bilaterally which may be chronic in nature. The lung parenchyma is clear. The bony thorax is intact. Degenerative changes are noted in the shoulders and thoracic spine. XR/XR chest 1V portable IMPRESSION: No acute cardiopulmonary pathology. Interstitial prominence is present bilaterally which is most likely chronic in nature. Impression dictated by: Donny Wolf M.D.03/23/2022 8:03 PM Dictation Location: [place] [address] Transcribed By: MICHAEL 03/23/222002 Dictated By: Donny Wolf II, MD 03/23/222001 Signed By: 03/23/222002 [facility] XR knee RT 4V*on 03-23-2022 XR knee RT 4V* [facility] [place] [address] [place] [address] XRay Report Signed Patient: Saeed Sarabia MR#: [id number] : 1940 Acct:[id number] Age/Sex: 81 / F ADM Date: 03/23/22 Loc: ER Room: Type: [facility] ER Attending Dr: Copies to: Howard Rivera DO Ordering Provider: Howard Rivera DO Date of Service: 03/23/22 XR/XR knee RT 4V*: Neuro Symptoms/Deficit XR knee RT 4V* 03/23/2022 7:22 PM SIGNS AND SYMPTOMS: Right foot drop PROTOCOL: Frontal, lateral, and oblique radiographs of the right knee COMPARISON: None FINDINGS: There is mild narrowing of the weightbearing joint spaces greatest medially. There is moderate patellofemoral joint space loss. 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 There is no fracture or dislocation. Vascular calcifications are present posteriorly. 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 There is also evidence suggesting underlying chondrocalcinosis. No acute bony injury. Impression dictated by: Donny Wolf M.D.03/23/2022 8:02 PM Dictation Location: [place] [address] Transcribed By: MICHAEL 03/23/222001 Dictated By: Donny Wolf II, MD 03/23/222000 Signed By: 03/23/222001 Normal [facility] pH Auto test strip (U)Ordere d By: Howard Rivera on 03-23-2022 pH (U) 7.5 [pH] 5.0-9.0 [facility] Basic Metabolic Panelon Calcium [Mass/Vol] 9.6 mg/dL Normal 8.2-10.2 [facility] Comment on above: Result Comment: PERF ORMED BY: [place] [address] PATHOLOGIST [employer]ICE GUIDO ELIZALDE M.D. Performed By: #### C BC, PT, PTT, CMP #### [address] Chloride [Moles/Vol] 99 mmol/L Normal 95-114 [facility] Comment on above: Performed By: #### C BC, PT, PTT, CMP #### [facility] [address] [place] [address] CO2 [Moles/Vol] 26.1 mmol/L Normal 22.0-30.0 [facility] Comment on above: Performed By: #### C BC, PT, PTT, CMP #### [facility] [address] [place] [address] Creatinine [Mass/Vol] 1.04 mg/dL High 0.44-1.03 [facility] Comment on above: Performed By: #### C BC, PT, PTT, CMP #### [facility] [address] [place] [address] Estimated GFR ( Froylan > 60 [facility] Comment on above: Result Comment: GFR estimated reference range: According to KDOQI guidelines, <60 ml/min/1.73m2 is sufficient to diagnose a patient with chronic kidney disease. Performed By: #### C BC, PT, PTT, CMP #### [address] Estimated GFR (Non- Am 51 [facility] Comment on above: Performed By: #### C BC, PT, PTT, CMP #### [address] [place] [address] [place] Glucose [Mass/Vol] 134 mg/dL High 70-100 [facility] Comment on above: Result Comment: Okay Glucose Reference Range is dependent on time and content of last meal. Glucose of more than 200 mg/dL in a nonstressed, ambulatory subject supports the diagnosis of Diabetes Mellitus. ADA recommended reference range Performed By: #### C BC, PT, PTT, CMP #### [facility] [address] Potassium [Moles/Vol] 4.8 mmol/L Normal 3.5-5.1 [facility] Comment on above: Performed By: #### C BC, PT, PTT, CMP #### [facility] [address] Sodium [Moles/Vol] 139 mmol/L Normal 136-146 [facility] Comment on above: Performed By: #### C BC, PT, PTT, CMP #### [facility] [address] Urea nitrogen [Mass/Vol] 21 mg/dL Normal 9-23 [facility] Comment on above: Performed By: #### C BC, PT, PTT, CMP #### [address] Basophils Auto (Bld) [#/Vol] Ordered By: Glenroy Vera on 03-09-2022 Basophils (Bld) [#/Vol] 0.1 10*3/uL 0.0-0.2 [facility] Basophils/100 WBC Auto (Bld) Ordered By: Glenroy Vera on 03-09-2022 Basophils/100 WBC (Bld) 0.8 % [facility] Blood hemoglobin measurement (mass/volume)Ordered By: Glenroy Vera on 03-09-2022 Hemoglobin (Bld) [Mass/Vol] 13.7 g/dL 11.8-15.4 [facility] Blood leukocytes automated c ount (number/volume)Ordered By: Glenroy Vera on 03-09-2022 WBC (Bld) [#/Vol] 6.4 10*3/uL 4.5-11.0 [facility] Complete Blood Count Auto Di ffon 03-09-2022 Basophils (Bld) [#/Vol] 0.1 10*3/uL Normal 0.0-0.2 [facility] Comment on above: Result Comment: PERF ORMED BY: [place] [address] PATHOLOGIST [employer]ICE GUIDO ELIZALDE M.D. Performed By: #### C BC, PT, PTT, CMP #### [address] Basophils/100 WBC (Bld) 0.8 % Normal . [facility] Comment on above: Performed By: #### C BC, PT, PTT, CMP #### [place] [address] [place] Eosinophils (Bld) [#/Vol] 0.1 10*3/uL Normal 0.0-0.45 [facility] Comment on above: Performed By: #### C BC, PT, PTT, CMP #### [address] Eosinophils/100 WBC (Bld) 1.9 % Normal . [facility] Comment on above: Performed By: #### C BC, PT, PTT, CMP #### [address] Erythrocyte distribution width (RBC) [Ratio] 13.8 % Normal 11.9-15.3 [facility] Comment on above: Performed By: #### C BC, PT, PTT, CMP #### [address] Hematocrit (Bld) [Volume fraction] 41.8 % Normal 34.0-46.4 [facility] Comment on above: Performed By: #### C BC, PT, PTT, CMP #### [address] Hemoglobin (Bld) [Mass/Vol] 13.7 g/dL Normal 11.8-15.4 [facility] Comment on above: Performed By: #### C BC, PT, PTT, CMP #### [address] Lymphocytes (Bld) [#/Vol] 2.1 10*3/uL Normal 1.00-4.8 [facility] Comment on above: Performed By: #### C BC, PT, PTT, CMP #### [address] Lymphocytes/100 WBC (Bld) 32.8 % Normal . [facility] Comment on above: Performed By: #### C BC, PT, PTT, CMP #### [address] MCH (RBC) [Entitic mass] 30.2 pg Normal 24.7-34.3 [facility] Comment on above: Performed By: #### C BC, PT, PTT, CMP #### [address] MCV (RBC) [Entitic vol] 92.0 fL Normal 80-100 [facility] Comment on above: Performed By: #### C BC, PT, PTT, CMP #### [address] Mean Corpuscular HGB Conc 32.8 g/dL Normal 32.0-35.0 [facility] Comment on above: Performed By: #### C BC, PT, PTT, CMP #### [address] Monocytes (Bld) [#/Vol] 0.5 10*3/uL Normal 0.0-0.8 [facility] Comment on above: Performed By: #### C BC, PT, PTT, CMP #### [address] Monocytes/100 WBC (Bld) 7.6 % Normal . [facility] Comment on above: Performed By: #### C BC, PT, PTT, CMP #### [address] Neutrophils (Bld) [#/Vol] 3.7 10*3/uL Normal 1.8-7.7 [facility] Comment on above: Performed By: #### C BC, PT, PTT, CMP #### [facility] [address] Neutrophils/100 WBC (Bld) 56.9 % Normal . [facility] Comment on above: Performed By: #### C BC, PT, PTT, CMP #### [address] Nucleated RBC/100 WBC (Bld) [Ratio] 0.1 % Normal 0-0.5 [facility] Comment on above: Performed By: #### C BC, PT, PTT, CMP #### [address] Platelet mean volume (Bld) [Entitic vol] 9.0 fL Normal 6.3-10.7 [facility] Comment on above: Performed By: #### C BC, PT, PTT, CMP #### [address] Platelets (Bld) [#/Vol] 277 10*3/uL Normal 150-450 [facility] Comment on above: Performed By: #### C BC, PT, PTT, CMP #### [address] RBC (Bld) [#/Vol] 4.55 10*6/uL Normal 3.60-5.00 [facility] Comment on above: Performed By: #### C BC, PT, PTT, CMP #### [address] WBC (Bld) [#/Vol] 6.4 10*3/uL Normal 4.5-11.0 [facility] Comment on above: Performed By: #### C BC, PT, PTT, CMP #### [address] Creatinine and Glomerular fi ltration rate.predicted panel (S/P/Bld)Ordered By: Glenroy Vera on 03-09-2022 Creatinine [Mass/Vol] 1.04 mg/dL 0.44-1.03 [facility] ECG 12 lead ECGon 03-09-2022 ECG 12 lead ECG [facility] Main [place] [id number] Electrocardiograph Report Signed Patient: Saeed Sarabia MR#: [id number] : 1940 Acct:[id number] Age/Sex: 81 / F ADM Date: 03/09/22 Loc: PS Room: Type: [facility] Attending Dr: Glenroy Vera MD Ordering Provider: Glenroy Vera MD Date of Service: 03/09/2210/30/1315 ECG/ECG 12 lead ECG: surgery 03-17-2022 Copies to: Test Reason : Blood Pressure : / mmHG Vent. Rate : 072 BPM Atrial Rate : 072 BPM P-R Int : 152 ms QRS Dur : 130 ms QT Int : 416 ms P-R-T Axes : 030 -07 105 degrees QTc Int : 455 ms sinus rhythm with rate dependent Left bundle branch block followed by blocked PAC and narrow sinus complexes Nonspecific ST abnormality in normal complexes Abnormal ECG No previous ECGs available Confirmed by PIEDAD LOCKHART DO ([id number]) on 03/12/2022 8:48:50 PM Referred By: MELIDA Electronically Signed By:PIEDAD LOCKHART DO Transcribed By: MUS Signed By Piedad Lockhart DO 03/12 Normal [facility] Eosinophils Auto (Bld) [#/Vo l]Ordered By: Glenroy Vera on 03-09-2022 Eosinophils (Bld) [#/Vol] 0.1 10*3/uL 0.0-0.45 [facility] Eosinophils/100 WBC Auto (Bl d)Ordered By: Glenroy Vera on 03-09-2022 Eosinophils/100 WBC (Bld) 1.9 % [facility] Erythrocyte distribution wid th Auto (RBC) [Ratio]Ordered By: Glenroy Vera on 03-09-2022 Erythrocyte distribution width (RBC) [Ratio] 13.8 % 11.9-15.3 [facility] Estimated glomerular filtrat ion rate (GFR) non- AmericanOrdered By: Glenroy Vera on 03-09-2022 GFR/1.73 sq M.predicted among non-blacks MDRD (S/P/Bld) [Vol rate/Area] 51 mL/Min [facility] Hematocrit Auto (Bld) [Volum e fraction]Ordered By: Glenroy Vera on 03-09-2022 Hematocrit (Bld) [Volume fraction] 41.8 % 34.0-46.4 [facility] Laboratory - Hematology and Cell countsOrdered By: Glenroy Vera on 03-09-2022 Nucleated RBC/100 WBC (Bld) [Ratio] 0.1 % 0-0.5 [facility] Lymphocytes Auto (Bld) [#/Vo l]Ordered By: Glenroy Vera on 03-09-2022 Lymphocytes (Bld) [#/Vol] 2.1 10*3/uL 1.00-4.8 [facility] Lymphocytes/100 WBC Auto (Bl d)Ordered By: Glenroy Vera on 03-09-2022 Lymphocytes/100 WBC (Bld) 32.8 % [facility] MCH Auto (RBC) [Entitic mass ]Ordered By: Glenroy Vera on 03-09-2022 MCH (RBC) [Entitic mass] 30.2 pg 24.7-34.3 [facility] MCHC Auto (RBC) [Mass/Vol]Or dered By: Glenroy Vera on 03-09-2022 MCHC (RBC) [Mass/Vol] 32.8 g/dL 32.0-35.0 [facility] MCV Auto (RBC) [Entitic vol] Ordered By: Glenroy Vera on 03-09-2022 MCV (RBC) [Entitic vol] 92.0 fL 80-100 F [facility] Monocytes Auto (Bld) [#/Vol] Ordered By: Glenroy Vera on 03-09-2022 Monocytes (Bld) [#/Vol] 0.5 10*3/uL 0.0-0.8 [facility] Monocytes/100 WBC Auto (Bld) Ordered By: Glenroy Vera on 03-09-2022 Monocytes/100 WBC (Bld) 7.6 % F [facility] Neutrophils Auto (Bld) [#/Vo l]Ordered By: Glenroy Vera on 03-09-2022 Neutrophils (Bld) [#/Vol] 3.7 10*3/uL 1.8-7.7 [facility] Neutrophils/100 WBC Auto (Bl d)Ordered By: Glenroy Vera on 03-09-2022 Neutrophils/100 WBC (Bld) 56.9 % [facility] No Panel InformationOrdered By: Glenroy Vera on 03-09-2022 Estimated GFR () > 60 mL/Min [facility] Comment on above: GFR estimated refere nce range: According to KDOQI guidelines, <60 ml/min/1.73m2 is sufficient to diagnose a patient with chronic kidney disease. Pharmacy Creatinine Clearance (Chem N/A [facility] Platelet mean volume Auto (B ld) [Entitic vol]Ordered By: Glenroy Vera on 03-09-2022 Platelet mean volume (Bld) [Entitic vol] 9.0 fL 6.3-10.7 [facility] Platelets Auto (Bld) [#/Vol] Ordered By: Glenroy Vera on 03-09-2022 Platelets (Bld) [#/Vol] 277 10*3/uL 150-450 [facility] RBC Auto (Bld) [#/Vol]Ordere d By: Glenroy Vera on 03-09-2022 RBC (Bld) [#/Vol] 4.55 10*6/uL 3.60-5.00 [facility] Serum or plasma calcium nakul urement (mass/volume)Ordered By: Glenroy Vera on 03-09-2022 Calcium [Mass/Vol] 9.6 mg/dL 8.2-10.2 [facility] Serum or plasma chloride elizabeth surement (moles/volume)Ordered By: Glenroy Vera on 03-09-2022 Chloride [Moles/Vol] 99 mmol/L 95-114 [facility] Serum or plasma glucose nakul urement (mass/volume)Ordered By: Glenroy Vera on 03-09-2022 Glucose [Mass/Vol] 134 mg/dL 70-100 [facility] Comment on above: ADA recommended refe rence range Random Glucose Reference Range is dependent on time and content of last meal. Glucose of more than 200 mg/dL in a nonstressed, ambulatory subject supports the diagnosis of Diabetes Mellitus. Serum or plasma potassium me asurement (moles/volume)Ordered By: Glenroy Vera on 03-09-2022 Potassium [Moles/Vol] 4.8 mmol/L 3.5-5.1 [facility] Serum or plasma sodium measu rement (moles/volume)Ordered By: Glenroy Vera on 03-09-2022 Sodium [Moles/Vol] 139 mmol/L 136-146 [facility] Serum or plasma total carbon dioxide measurement (moles/volume)Ordered By: Glenroy Vera on 03-09-2022 CO2 [Moles/Vol] 26.1 mmol/L 22.0-30.0 [facility] Serum or plasma urea nitroge n measurement (mass/volume)Ordered By: Glenroy Vera on 03-09-2022 Urea nitrogen [Mass/Vol] 21 mg/dL 9-23 [facility] MRI LSPINE WO CONon 02-19-20 MRI LSPINE WO CON EXAMINATION: MRI LSPINE WO CON HISTORY: Lumbar spondylosis with myelopathy COMPARISON: No relevant comparison available. TECHNIQUE: A variety of imaging planes and parameters were utilized for visualization of suspected pathology. FINDINGS: For the purposes of numbering, sagittal T2 image # 9 extends from the T10 vertebral body superiorly to the S3 level inferiorly. PARASPINAL AREA: Normal with no visible mass. BONES: Rotatory dextro scoliosis. Severe degenerative spondylosis and facet osteoarthropathy. Anterior wedging L2 vertebral body, chronic CORD/CAUDA EQUINA: Normal caliber, contour, and signal intensity. DISC LEVELS: 12-L1: Multilevel moderate disc space narrowing. No significant disc bulge or herniation. Ligamentum flavum hypertrophy. No central or foraminal stenosis L1-L2: Asymmetric disc space narrowing with disc collapse on the left. Endplate sclerosis. Bulky proliferative anterior posterior degenerative spondylosis. Ligamentum flavum hypertrophy and facet osteoarthropathy. Mild trefoil narrowing of the central canal. No right foraminal stenosis. Severe left foraminal stenosis, sagittal image 5 L2-L3: Asymmetric disc space narrowing, disc collapse on the right. Endplate sclerosis. Bulky proliferative anterior and posterior osteophyte formation. Ligamentum flavum hypertrophy and facet osteoarthropathy. Moderate narrowing of the central canal axial image #18. Severe bilateral foraminal stenosis. L3-L4: Disc space narrowing. Mild posterior disc/osteophyte complex. Severe ligamentum flavum hypertrophy and facet osteoarthropathy. Severe narrowing of the central canal measuring only 4 mm in anterior posterior dimension sagittal image 8, axial image 23. Mild bilateral foraminal stenosis left greater than right L4-L5: Disc desiccation. Moderate diffuse disc bulge and ligamentum flavum hypertrophy and facet osteoarthropathy. Severe central canal stenosis, the central canal measures 3 mm in anterior posterior dimension. Moderate right and mild left foraminal stenosis L5-S1: Moderate to severe disc space narrowing with endplate sclerosis. Moderate diffuse disc/osteophyte complex and ligamentum flavum hypertrophy and facet osteoarthropathy. Moderate narrowing of the central canal to 6.7 mm in anterior posterior dimension. Moderate bilateral foraminal stenosis IMPRESSION: Extensive degenerative changes with critical central and mild to severe foraminal stenosis at multiple levels as detailed above. Surgical consultation recommended Electronically authenticated by: SHEILA INIGUEZ Date: 2022-02-18 11:32 Normal [facility] US ARTERY LEG BILon 02-12-20 22 US ARTERY LEG BAILEY EXAMINATION: US ARTERY LEG BAILEY HISTORY: Peripheral vascular disease (disorder) COMPARISON: 12/17/2019 TECHNIQUE: Color duplex Doppler ultrasound evaluation analysis was performed in the usual manner. FINDINGS: RIGHT LOWER EXTREMITY ARTERIAL Mild diffuse atherosclerotic plaque. Biphasic waveform popliteal artery and distal External Iliac PSV: 77.9 cm/s External Iliac EDV: 6.2 cm/s Common Femoral PSV: 67.2 cm/s Common Femoral EDV: 3.1 cm/s Superficial Femoral Proximal PSV: 79.0 cm/s Proximal EDV: 5.6 cm/s Mid PSV: 80.1 cm/s Mid EDV: 5.6 cm/s Distal PSV: 81.4 cm/s Distal EDV: 9.2 cm/s Popliteal Proximal PSV: 40.0 cm/s Popliteal Proximal EDV: 0.0 cm/s Posterior Tibial Proximal PSV: 34.0 cm/s Proximal EDV: 3.4 cm/s Mid PSV: 58.1 cm/s Mid EDV: 3.4 cm/s Distal PSV: 72.4 cm/s Distal EDV: 3.4 cm/s Anterior Tibial Proximal PSV: 19.7 cm/s Proximal EDV: 4.5 cm/s Mid PSV: 42.8 cm/s Mid EDV: 0.0 cm/s Distal PSV: 39.5 cm/s Distal EDV: 4.5 cm/s LEFT LOWER EXTREMITY ARTERIAL Mild diffuse atherosclerotic plaque biphasic waveform popliteal artery and distal External Iliac PSV: 122.0 cm/s External Iliac EDV: 2.2 cm/s Common Femoral PSV: 70.7 cm/s Common Femoral EDV: 2.2 cm/s Superficial Femoral Proximal PSV: 81.4 cm/s Proximal EDV: 4.0 cm/s Mid PSV: 65.9 cm/s Mid EDV: 6.6 cm/s Distal PSV: 52.0 cm/s Distal EDV: 5.4 cm/s Popliteal Proximal PSV: 47 Popliteal Proximal EDV: 5.6 Posterior Tibial Proximal PSV: 27.0 cm/s Proximal EDV: 7.1 cm/s Mid PSV: 43.5 cm/s Mid EDV: 3.6 cm/s Distal PSV: 19.1 cm/s Distal EDV: Anterior Tibial Proximal PSV: 96.9 cm/s Proximal EDV: 5.3 cm/s Mid PSV: 55.7 cm/s Mid EDV: 6.2 cm/s Distal PSV: 71.4 cm/s Distal EDV: 5.3 cm/s IMPRESSION: Bilateral diffuse mild atherosclerotic plaque Wave form suggests bilateral mild ischemia popliteal arteries and below Electronically authenticated by: SHEILA INIGUEZ Date: 2022-02-11 16:21 Normal [facility] XR LSPINE 2_3 VIEWSon 2021 XR LSPINE 2_3 VIEWS EXAMINATION: XR LSPINE 2_3 VIEWS HISTORY: Spondylosis without myelopathy COMPARISON: 12/19/2019 FINDINGS: BONES: Rotatory dextroscoliosis of the thoracolumbar spine centered at L3. Moderate to severe diffuse degenerative spondylosis and facet osteoarthropathy DISC SPACES: Multilevel moderate to severe disc space narrowing with endplate sclerosis and vacuum disks PARASPINOUS: Negative. No paraspinous abnormality is seen. OTHER: Moderate diffuse atherosclerosis IMPRESSION: Moderate to severe degenerative changes, progressed from the prior exam Electronically authenticated by: SHEILA INIGUEZ Date: 2022-02-11 17:09 Normal [facility] VITAMIN B12on 02-10-2022 Cobalamin (Vitamin B12) [Mass/Vol] 359 pg/mL Normal 232-1245 [facility] Comment on above: Performed By: #### V B12LC #### [facility] [address] [address] [address] Adilene Koo CBC AUTO DIFFon 02-09-2022 BASO # 0.0 103/ul Normal 0.0-0.1 [facility] Comment on above: Performed By: #### C BC ####[facility] [address] [address]DrKen Koo Basophils/100 WBC (Bld) 0.2 % Normal 0.2-2.0 [facility] Comment on above: Performed By: #### C BC ####[facility] [address] [address]DrKen Koo EO # 0.1 103/ul Normal 0.0-0.7 [facility] Comment on above: Performed By: #### C BC ####[facility] [address] [address]Dr. Adilene Koo Eosinophils/100 WBC (Bld) 1.5 % Normal 0.9-7.0 [facility] Comment on above: Performed By: #### C BC ####[facility] [address] [address]DrKen Koo Erythrocyte distribution width (RBC) [Ratio] 13.2 % Normal 11.0-15.0 [facility] Comment on above: Performed By: #### C BC ####[facility] [address] [address]DrKen Koo Hematocrit (Bld) [Volume fraction] 46.3 % Normal 36.0-48.0 [facility] Comment on above: Performed By: #### C BC ####[facility] [address] [place], [place] [address]Dr. Adilene Koo Hemoglobin (Bld) [Mass/Vol] 14.1 g/dL Normal 12.0-16.0 [facility] Comment on above: Performed By: #### C BC ####[facility] [address] [address]Dr. Adilene Koo IG # 0.02 10e3/ul Normal 0.00-0.03 [facility] Comment on above: Performed By: #### C BC ####[facility] [address] [address]Dr. Adilene Koo IG % 0.2 % Normal 0.0-0.5 [facility] Comment on above: Performed By: #### C BC ####[facility] [address] [address]Dr. Adilene Koo LYMPH # 2.4 103/ul Normal 1.2-3.8 [facility] Comment on above: Performed By: #### C BC ####[facility] [address] [address]Dr. Adilene Koo Lymphocytes/100 WBC (Bld) 29.9 % Normal 20.5-60.0 [facility] Comment on above: Performed By: #### C BC ####[facility] [address] [address]Dr. Adilene Koo MANUAL DIFF REQ NO Normal [facility] Comment on above: Performed By: #### C BC ####[facility] [address] [address]Dr. Adilene Koo MCH (RBC) [Entitic mass] 29.2 pg Normal 26.7-34.0 [facility] Comment on above: Performed By: #### C BC ####[facility] [address] [address]Dr. Adilene Koo MCHC (RBC) [Mass/Vol] 30.5 g/dL Normal 29.9-35.2 [facility] Comment on above: Performed By: #### C BC ####[facility] [address] [address]Dr. Adilene Koo MCV (RBC) [Entitic vol] 95.9 fL Normal 81.0-99.0 [facility] Comment on above: Performed By: #### C BC ####[facility] [address] [place], [place] [address]Dr. Adilene Koo MONO # 0.6 103/ul Normal 0.3-0.8 [facility] Comment on above: Performed By: #### C BC ####[facility] [address] [place], [place] [address]Dr. Adilene Koo Monocytes/100 WBC (Bld) 8.0 % Normal 1.7-12.0 [facility] Comment on above: Performed By: #### C BC ####[facility] [address] [place], [place] [address]Dr. Adilene Koo NEUT # 4.8 103/ul Normal 1.4-6.5 [facility] Comment on above: Performed By: #### C BC ####[facility] [address] [place], [place] [address]Dr. Adilene Hayes Neutrophils/100 WBC (Bld) 60.2 % Normal 43.0-75.0 [facility] Comment on above: Performed By: #### C BC ####[facility] [address] [place], [place] [address]Dr. Adilene Hayes Platelet mean volume (Bld) [Entitic vol] 10.9 fL Normal 9.5-13.5 [facility] Comment on above: Performed By: #### C BC ####[facility] [address] [place], [place] [address]Dr. Adilene Hayes PLT 276 103/ul Normal 150-450 [facility] Comment on above: Performed By: #### C BC ####[facility] [address] [place], [place] [address]Dr. Adilene Hayes RBC 4.83 106/ul Normal 4.20-5.40 [facility] Comment on above: Performed By: #### C BC ####[facility] [address] [place], [place] [address]Dr. Adilene Koo WBC 8.0 103/ul Normal 4.0-11.0 [facility] Comment on above: Performed By: #### C BC ####[facility] [address] [address]Dr. Adilene Koo FREE T3on 02-09-2022 FREE T3 2.41 pg/mlL Normal 2.18-3.98 [facility] Comment on above: Performed By: #### B MP, FT3, TSH #### [facility] [address] [address] [address] Adilene Koo FREE T4on 02-09-2022 Free T4 [Mass/Vol] 1.39 ng/dL Normal 0.76-1.46 [facility] Comment on above: Performed By: #### F T4 ####[facility] [address] [address]Dr. Adilene Koo GLYCOHEMOGLOBIN A1Con 2021 ADA RECOMMENDATION SEE BELOW Normal [facility] Comment on above: Result Comment: ADA RECOMMENDED LIMIT 4.0 - 6.0 ADA THERAPEUTIC TARGET < 7.0 ACTION SUGGESTED > 7.0 Performed By: #### A 1C ####[facility] [address] [address]Dr. Adilene Koo Glucose [Mass/Vol] 137 mg/dL Normal [facility] Comment on above: Performed By: #### A 1C ####[facility] [address] [address]Dr. Adilene Koo HbA1c (Bld) [Mass fraction] 6.4 % Critically high 4.5-6.2 [facility] Comment on above: Performed By: #### A 1C ####[facility] [address] [address]Dr. Adilene Koo PROF CHEM 8 (BAS METB)on Anion gap [Moles/Vol] 9.1 mmol/L Normal [facility] Comment on above: Performed By: #### B MP, FT3, TSH #### [facility] [address] [address] [address] Adilene Koo Calcium [Mass/Vol] 9.0 mg/dL Normal 8.5-10.1 [facility] Comment on above: Performed By: #### B MP, FT3, TSH #### [facility] [address] [place] [address] Dr. Adilene Koo Chloride [Moles/Vol] 105 mmol/L Normal 98-107 [facility] Comment on above: Performed By: #### B MP, FT3, TSH #### [facility] [address] [place] [address] Dr. Adilene Koo CO2 [Moles/Vol] 30.5 mmol/L Normal 21.0-32.0 [facility] Comment on above: Performed By: #### B MP, FT3, TSH #### [facility] [address] [place] [address] Dr. Adilene Koo Creatinine [Mass/Vol] 0.93 mg/dL Normal 0.55-1.02 [facility] Comment on above: Performed By: #### B MP, FT3, TSH #### [facility] [address] [place] [address] Dr. Adilene Koo EGFR-AF AUSTRALIAN >60 Normal >=60 [facility] Comment on above: Performed By: #### B MP, FT3, TSH #### [facility] [address] [place] [address] Dr. Adilene Koo EGFR-NON AF AUSTRALIAN 58 mL/min/1.73m2 Critically low >=60 [facility] Comment on above: Performed By: #### B MP, FT3, TSH #### [facility] [address] [place] [address] Dr. Adilene Koo Glucose [Mass/Vol] 105 mg/dL Normal 74-106 [facility] Comment on above: Performed By: #### B MP, FT3, TSH #### [facility] [address] [place] [address] Dr. Adilene Koo Potassium [Moles/Vol] 4.6 mmol/L Normal 3.5-5.1 [facility] Comment on above: Performed By: #### B MP, FT3, TSH #### [facility] [address] [address] [address] Adilene Koo Sodium [Moles/Vol] 140 mmol/L Normal 136-145 [facility] Comment on above: Performed By: #### B MP, FT3, TSH #### [facility] [address] [address] [address] Adilene Koo Urea nitrogen [Mass/Vol] 20.0 mg/dL Critically high 7.0-18 .0 [facility] Comment on above: Performed By: #### B MP, FT3, TSH #### [facility] [address] [address] [address] Adilene Koo Urea nitrogen/Creatinine [Mass ratio] 21.5 mg/mg Normal [facility] Comment on above: Performed By: #### B MP, FT3, TSH #### [facility] [address] [place] [address] Dr. Adilene Koo TSHon 02-09-2022 TSH 0.134 uIU/mL Critically low 0.470-4.680 [facility] Comment on above: Performed By: #### B MP, FT3, TSH #### [facility] [address] [address] [address] Adilene Koo TSH RANGE SEE BELOW Normal [facility] Comment on above: Result Comment: <0.3 4 UIU/ml HYPERTHYROID 0.34-5.60 UIU/ml EUTHYROID >5.60 UIU/ml HYPOTHYROID Performed By: #### B MP, FT3, TSH #### [facility] [address] [place] [address] Dr. Adilene Koo Vital Signs Date Time Vital Sign Value Performing Clinician Facility 04-15-2022 06:02-0400 Body temperature 98.2 [degF] MD Glenroy Vera Work Phone: [facility] 04-15-2022 06:02-0400 Diastolic blood pressure 71 mm[Hg] MD Glenroy Vera Work Phone: [facility] 04-15-2022 06:02-0400 Heart rate 77 /min MD Glenroy Vera Work Phone: [facility] 04-15-2022 06:02-0400 Respiratory rate 16 /min MD Glenroy Vera Work Phone: [facility] 04-15-2022 06:02-0400 SaO2% (BldA) [Mass fraction] 96 % MD Glenroy Vera Work Phone: [facility] 04-15-2022 06:02-0400 Systolic blood pressure 131 mm[Hg] MD Glenroy Vera Work Phone: [facility] 04-15-2022 05:59-0400 Body weight 78.3 kg MD Glenroy Vera Work Phone: [facility] 04-14-2022 07:46-0400 Body height 167.64 cm MD Glenroy Vera Work Phone: [facility] 04-07-2022 15:42-0400 Body mass index (BMI) [Ratio] 27.7 kg/m2 MD Glenroy Vera Work Phone: [facility] 03-28-2022 12:00-0400 Body temperature 98 [degF] MD Glenroy Vera Work Phone: [facility] 03-28-2022 12:00-0400 Diastolic blood pressure 74 mm[Hg] MD Glenroy Vera Work Phone: [facility] 03-28-2022 12:00-0400 Heart rate 70 /min MD Glenroy Vera Work Phone: [facility] 03-28-2022 12:00-0400 SaO2% (BldA) [Mass fraction] 96 % MD Glenroy Vera Work Phone: [facility] 03-28-2022 12:00-0400 Systolic blood pressure 125 mm[Hg] MD Glenroy Vera Work Phone: [facility] 03-28-2022 11:50-0400 Body height 157.48 cm MD Glenroy Vera Work Phone: [facility] 03-28-2022 05:56-0400 Body weight 79.1 kg MD Glenroy Vera Work Phone: [facility] 03-28-2022 03:30-0400 Respiratory rate 19 /min MD Glenroy Vera Work Phone: [facility] 03-24-2022 04:00-0400 Body height 157.48 cm MD Glenroy Vera Work Phone: [facility] 03-24-2022 04:00-0400 Body mass index (BMI) [Ratio] 31.6 kg/m2 MD Glenroy Vera Work Phone: [facility] 03-24-2022 04:00-0400 Body temperature 97.8 [degF] MD Glenroy Vera Work Phone: [facility] 03-24-2022 04:00-0400 Body weight 78.4 kg MD Glenroy Vera Work Phone: [facility] 03-24-2022 04:00-0400 Diastolic blood pressure 77 mm[Hg] MD Glenroy Vera Work Phone: [facility] 03-24-2022 04:00-0400 Heart rate 113 /min MD Glenroy Vera Work Phone: [facility] 03-24-2022 04:00-0400 Respiratory rate 21 /min MD Glenroy Vera Work Phone: [facility] 03-24-2022 04:00-0400 SaO2% (BldA) [Mass fraction] 93 % MD Glenroy Vera Work Phone: [facility] 03-24-2022 04:00-0400 Systolic blood pressure 162 mm[Hg] MD Glenroy Vera Work Phone: [facility] 03-23-2022 15:30-0400 Body height 167.64 cm Glenroy Vera Other [facility] Other 03-23-2022 15:30-0400 Body mass index (BMI) [Ratio] 28.34 kg/m2 Glenroy Vera Other [facility] Other 03-23-2022 15:30-0400 Body weight 79.65 kg Glenroy Vera Other [facility] Other 03-09-2022 13:28-0400 Body height 158.75 cm MD Glenroy Vera Work Phone: [facility] 03-09-2022 13:28-0400 Body mass index (BMI) [Ratio] 32.1 kg/m2 MD Glenroy Vera Work Phone: [facility] 03-09-2022 13:28-0400 Body temperature 98.7 [degF] MD Glenroy Vera Work Phone: [facility] 03-09-2022 13:28-0400 Body weight 81 kg MD Glenroy Vera Work Phone: [facility] 03-09-2022 13:28-0400 Diastolic blood pressure 68 mm[Hg] MD Glenroy Vera Work Phone: [facility] 03-09-2022 13:28-0400 Heart rate 72 /min MD Glenroy Vera Work Phone: [facility] 03-09-2022 13:28-0400 Respiratory rate 16 /min MD Glenroy Vera Work Phone: [facility] 03-09-2022 13:28-0400 SaO2% (BldA) [Mass fraction] 96 % MD Glenroy Vera Work Phone: [facility] 03-09-2022 13:28-0400 Systolic blood pressure 144 mm[Hg] MD Glenroy Vera Work Phone: [facility] Encounters Encounter Date Encounter Type Care Provider Facility Start: 02-02-2024 End[facility]: 07-13-[facility]23 End: 07-13-2023 ambulatory EPHRAIM [facility] Start: 09-07-2022 Telephone encounter Juice Sears MD Work Phone: Neurology Comment on above: Received Outside Med ical Records ([facility] ) Start: 08-23-2022 End: 08-24-2022 ambulatory LUIZ ADAM Facility:[facility] Start: 08-23-2022 End: 08-23-2022 Patient encounter procedure Luiz Adam PA-C Work Phone: Neurosurgery Comment on above: Foot drop, right maki t (Primary Dx) Start: 08-15-2022 End: 08-16-2022 ambulatory [employer] [facility] KIRSTIN ROGERSFREDRICKAndrew Facility:[facility] Start: 07-29-2022 Telephone encounter Juice Sears MD Work Phone: Neurology Comment on above: Other (Service Center Assistant apy Recertification Note ) Start: 07-26-2022 End: 07-26-2022 Office outpatient new 20 minutes Clayton Hopper DPM Work Phone: Dr[facility] 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); Foot drop, right foot Start: 06-16-2022 Telephone encounter Juice Sears MD Work Phone: Neurology Comment on above: Forms; Other (Discha rge Physician Orders) Start: 05-25-2022 Telephone encounter Juice Sears MD Work Phone: Neurology Comment on above: Forms (Physician Ord ers (Radha) - [facility]//) Start: 05-23-2022 End: 07-29-2022 ambulatory [employer] INTERMEDIARY KIRSTIN AUGUSTO Facility:[facility] Start: 05-17-2022 End: 05-17-2022 ambulatory FANNIE BLANDON Facility:[facility] Start: 05-17-2022 End: 05-17-2022 Patient encounter procedure Juice Sears MD Work Phone: Neurosurgery Comment on above: Spinal stenosis of l umbar region, unspecified whether neurogenic claudication present (Primary Dx); Right leg weakness Start: 05-12-2022 Telephone encounter Juice Sears MD Work Phone: Neurology Comment on above: General ([facility]) Start: 05-06-2022 Telephone encounter Juice Sears MD Work Phone: Neurology Comment on above: Other ([facility] 04/17/22 - 06/15/22) Start: 04-29-2022 Telephone encounter Juice Sears MD Work Phone: Neurology Comment on above: Forms Start: 04-22-2022 Telephone encounter Juice Sears MD Work Phone: Neurology Comment on above: [facility] ([facility]) Start: 04-15-2022 Telephone encounter Juice Sears MD Work Phone: Neurology Comment on above: Other (home health o rders requested) Start: 04-07-2022 End: 04-15-2022 Evaluation and management of inpatient Kirstin Miller Facility:[facility] Start: 04-07-2022 End: 04-15-2022 Evaluation and management of inpatient MD Glenroy Vera Work Phone: [facility] Start: 04-05-2022 Evaluation and manag ement of inpatient [facility] Start: 03-30-2022 End: 03-30-2022 ambulatory FANNIE BLANDON Facility:[facility] Start: 03-28-2022 End: 04-07-2022 Evaluation and management of inpatient Josue SHIRLEY Facility:[facility] Start: 03-24-2022 End: 03-28-2022 ambulatory Kirstin Miller Facility:[facility] Start: 03-24-2022 End: 03-28-2022 Evaluation and management of inpatient MD Glenroy Vera Work Phone: [facility] [place] Start: 03-23-2022 End: 03-23-2022 ambulatory Glenroy Vera Other [facility] Other Start: 03-23-2022 Postop follow up vis it related to original px Glenroy Vera [facility] Start: 03-17-2022 End: 03-17-2022 ambulatory Kirstin Pricilla Leónhfredrickz Facility:[facility] Start: 03-17-2022 End: 03-17-2022 Departed Referred MD Glenroy Vera Work Phone: [facility] [place] Start: 03-15-2022 ambulatory [employer] INTERMEDIARY KIRSTIN AICHHOLZ Facil ity:[facility] Start: 03-09-2022 End: 03-09-2022 ambulatory NON STAFF Facility:[facility] Start: 03-09-2022 End: 03-09-2022 Patient encounter procedure MD Glenroy Vera Work Phone: [facility]-Pre-Surgical Testing Start: 02-28-2022 End: 02-28-2022 ambulatory Glenroy Vera Facility:[facility] Start: 02-28-2022 End: 02-28-2022 Patient encounter procedure MD Glenroy Vera Work Phone: [facility] Start: 02-18-2022 End: 02-19-2022 ambulatory [employer] INTERMEDIARY KIRSTIN AICHHOLZ Facility:[facility] Start: 02-11-2022 End: 02-12-2022 ambulatory [employer]SP[employer]ATION INTERMEDIARY KIRSTIN AICHHOLZ Facility:[facility] Start: 02-09-2022 End: 02-10-2022 ambulatory [employer] INTERMEDIARY KIRSTIN AICHHOLZ Facility:[facility] Procedures Date Procedure Procedure Detail Performing Clinician Start: 03-28-2022 Antibody screen FANNIE BLANDON Comment on above: Order Comment: Speci men Type: BLOOD SPECIMENOrdering Facility: [facility] Address: [address] [place] [id number] Performed By: #### T SCR ####CC MAIN BLOOD BANKCLIA [id number] [place] [id number] [place] Start: 03-27-2022 Urine culture MD Glenroy Vera Work Phone: Start: 03-23-2022 Plain chest X-ray MD Osborn Work Phone: Start: 03-23-2022 SARS Antigen (LFIA) MD Glenroy Vera Work Phone: Start: 02-28-2022 Dual energy X-ray absorptiometry MD Glenroy Vera Work Phone: Urine culture MD Glenroy sebastian Work Phone: Plan of Treatment Date Care Activity Detail Author Start: 06-09-2022 Influenza vaccination INFLUENZA (#1) [facility] Start: 04-14-2022 [facility] Work Phone: Start: 04-07-2022 Hospital admission [facility] Work Phone: Start: 04-07-2022 Referral to clinical manometer technician [facility] Work Phone: Start: 03-28-2022 [facility] Work Phone: Start: 03-27-2022 Urine culture Urine Culture [facility] Start: 03-24-2022 Referral to neurologist [facility] Work Phone: Start: 03-24-2022 Hospital admission [facility] Work Phone: Start: 03-17-2022 Excision of lumbar intervertebral disc OR Lumbar Discectomy (Not Applicable) [facility] Start: 11-23-2021 COVID-19 VACCINE (4 - Booster for Pfizer series) COVID-19 VACCINE (4 - Booster for Pfizer series) [facility] Start: 10-09-2021 ADVANCE DIRECTIVE DISCUSSION ADVANCE DIRECTIVE DISCUSSION [facility] Start: 10-09-2021 DEPRESSION ASSESSMENT DEPRESSION ASSESSMENT [facility] Start: 09-17-2021 COVID-19 VACCINE (4 - Booster for Pfizer series) COVID-19 VACCINE (4 - Booster for Pfizer series) [facility] Start: 2005 BONE DENSITY BONE DENSITY [facility] Start: 1990 SHINGRIX VACCINE (1 of 2) SHINGRIX VACCINE (1 of 2) [facility] Start: 1959 Urine microalbumin profile DTAP,TDAP,TD (1 - Tdap) [facility] Start: 1958 Hepatitis B surface antibody level LDL CHOLESTEROL [facility] Start: 1950 3 comp foot exam completed DIABETIC FOOT EXAM [facility] Start: 1950 Hepatitis B screening URINE ALBUMIN:CREATININE RATIO [facility] Start: 1950 Hepatitis C antibody, confirmatory test DILATED RETINAL EXAM [facility] Start: 1946 PNEUMOCOCCAL: 65+ (1 - PCV) PNEUMOCOCCAL: 65+ (1 - PCV) [facility] Start: 1945 Hemoglobin A1c/Hemoglobin.total in Blood HBA1C [facility] Basophil count [facility] Work Phone: Basophil percent differential count [facility] Work Phone: Calcium [Mass/volume ] in Serum or Plasma [facility] Work Phone: Carbon dioxide, tota l [Moles/volume] in Serum or Plasma [facility] Work Phone: Chloride [Moles/volu me] in Serum or Plasma [facility] Work Phone: Creatinine and Glome rular filtration rate.predicted panel - Serum, Plasma or Blood [facility] Work Phone: Eosinophil percent differential count [facility] Work Phone: Eosinophils [#/volum e] in Blood [facility] Work Phone: Erythrocyte mean corpuscular volume determination [facility] Work Phone: Erythrocytes [#/volu me] in Blood [facility] Work Phone: Glucose [Mass/volume ] in Serum or Plasma [facility] Work Phone: Hematocrit [Volume Fraction] of Blood [facility] Work Phone: Hemoglobin [Mass/vol ume] in Blood [facility] Work Phone: Hemoglobin distribut ion, width determination [facility] Work Phone: Leukocytes [#/volume ] in Blood [facility] Work Phone: Lymphocyte count [facility] Work Phone: Lymphocyte percent differential count [facility] Work Phone: Mean corpuscular hemoglobin concentration determination [facility] Work Phone: Mean corpuscular hemoglobin determination [facility] Work Phone: Measurement of renal function [facility] Work Phone: Monocyte count [facility] Work Phone: Monocyte percent differential count [facility] Work Phone: Neutrophil count [facility] Work Phone: Neutrophil percent differential count [facility] Work Phone: Patient Education How to Don an AFO [facility] Work Phone: Patient referral [facility] Work Phone: Platelet mean volume determination [facility] Work Phone: Platelets [#/volume] in Blood [facility] Work Phone: Potassium [Moles/vol ume] in Serum or Plasma [facility] Work Phone: SARS-CoV-2 (COVID-19 ) N gene [Presence] in Respiratory specimen by HARMONY with probe detection [facility] Work Phone: Sodium [Moles/volume ] in Serum or Plasma [facility] Work Phone: Urea nitrogen [Mass/volume] in Serum or Plasma [facility] Work Phone: [facility] Immunizations Immunization Date Immunization Notes Care Provider Fa cili 07-23-2021 COVID-19 mRNA Comirlibia (Pfizer) MD Glenroy Vera Work Phone: [facility] 12-03-2020 COVID-19 mRNAFrancisco (Pfizer) MD Glenroy Vera Work Phone: [facility] 11-11-2020 COVID-19 mRNAFrancisco (Pfizer) MD Glenroy Vera Work Phone: [facility] Payers Date Payer Category Payer Private Health Insurance [id number] 2022 Self-pay [id number] 2005 Medicare MEDICARE MEDICAR E A AND B [id number] 2005-Present [phone] [address] [address] [place] [id number] Medicare [id number] 2005 Medicare MEDICARE MEDICAR E A AND B [id number] 2005-Present [phone] [place] [address] Medicare [id number] 1959 Medicare [id number] 1959 Unknown [id number] 1940 Unknown [id number] 1940 Unknown [id number] 593 1940 Unknown [id number] 593 1940 Unknown [id number] 593 1940 Unknown [id number] 593 1940 Unknown [id number] 593 Unknown [id number] 531 Unknown [id number] 531 Unknown [id number] 531 Unknown [id number] 531 Unknown [id number] 531 Social History Date Type Detail Facility Tobacco smoking status ORIS Unknown if ever smoked [facility] Work Phone: Start: 1940 Sex Assigned At Female F [facility] Start: 03-09-2022 End: 04-08-2022 Tobacco smoking status NHIS Never smoked tobacco (finding) [facility] Sex Assigned At Sex Assigned At Bir [facility] Other Start: 05-17-2022 Tobacco smoking status ORIS Tobacco smoking consumption unknown [facility] Start: 1940 Sex Assigned At Not on file C [facility] Start: 05-07-2022 End: 08-23-2022 Exposure to SARS-CoV-2 (event) Not sure [facility] Goals Date Patient Goal Desired Activity /State Functional Status Date Assessment Result Facility 04-15-2022 Functional status Patient is 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 Baseline [facility] Work Phone: 03-28-2022 Functional status Patient is 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 Baseline [facility] Work Phone: 03-24-2022 Functional status Patient Not at Baseline [facility] Work Phone: Mental Status Date Assessment Result Facility 04-15-2022 Cognitive function Cognitive Sta tus Patient at Baseline [facility] Work Phone: 03-28-2022 Cognitive function Cognitive Sta tus Patient at Baseline [facility] Work Phone: 03-24-2022 Cognitive function Cognitive Sta tus Patient Not at Baseline [facility] Work Phone: Clinical Notes 03-23-2022 to 02-02-2024 Telephone Encounter - Francis Mcmanus RN - 09/07/2022 2:04 PM ESTTelephone Encounter - Xi Arora - 09/07/2022 10:52 AM Haven Adam PA-C - 08/23/2022 12:00 PM EST Note Date & Type Note Facility 02-02-2024 Note OR Cardiology - [facility] Subjective Saeed Sarabia is a 83 y.o. year old female patient being seen for Follow-up (6 months) Patient Active Problem List Diagnosis Coronary arteriosclerosis Atrial fibrillation (CMS/HCC) Diastolic heart failure (CMS/HCC) Essential hypertension Hyperlipidemia Mitral valve regurgitation Type 2 diabetes mellitus without complication (CMS/HCC) Constipation Foot drop, right foot Right leg weakness Spinal stenosis Family History Problem Relation Name Age of Onset Heart attack Mother Coronary artery disease Mother Heart attack Father Coronary artery disease Father Multiple sclerosis Sister Social History Tobacco Use Smoking status: Never Smokeless tobacco: Never Substance Use Topics Alcohol use: Not Currently HPI Saeed Sarabia is a 83 yo woman who is seen in follow up on CAD s/p stenting of the LAD and 70% PDA stenosis by cath in 2016 that is managed medically, paroxysmal atrial fibrillation status post cardioversion in 2016, diastolic heart failure on PRN diuretic therapy, and hypertension. She is maintained on anticoagulation with Eliquis 5 mg twice daily. She has tried statins in the past and had reaction. We started her on crestor 5 mg daily and she is tolerating that. She did not tolerate 10 mg daily. I previously added Zetia 10 mg daily. She has history of diabetes. Previously she developed pain in her right leg and underwent a lower extremity arterial duplex study on 12/17/2019 and this showed no evidence of occlusive disease. She was found to have nerve impingement. Today she reports that she has been doing well. She continues to ambulate with the assistance of a walker after her back surgery 2 years ago. She has no angina and no shortness of breath on her current level of exertion. She does not feel palpitations. She has no bleeding issues with Eliquis. No claudication. Her right leg is in a brace. Review of Systems Cardiovascular: Negative for chest pain, claudication, cyanosis, dyspnea on exertion, irregular heartbeat, leg swelling, near-syncope, orthopnea, palpitations, paroxysmal nocturnal dyspnea and syncope. Objective Visit Vitals BP 148/60 (BP Location: Left arm, Patient Position: Sitting, BP Cuff Size: Adult) Pulse 57 Resp 16 Ht 1.676 m (5' 6 ) Wt 74.5 kg (164 lb 3.2 oz) SpO2 98% BMI 26.50 kg/m??? Smoking Status Never BSA 1.86 m??? Physical Exam Constitutional: Appearance: She is well-developed. She is not ill-appearing. HENT: Head: Normocephalic and atraumatic. Nose: Nose normal. Eyes: General: No scleral icterus. Pupils: Pupils are equal, round, and reactive to light. Neck: Thyroid: No thyromegaly. Vascular: No JVD. Cardiovascular: Rate and Rhythm: Normal rate and regular rhythm. Pulses: Radial pulses are 2+ on the right side and 2+ on the left side. Heart sounds: Normal heart sounds. No murmur heard. No friction rub. No gallop. Comments: Right leg in brace Pulmonary: Effort: Pulmonary effort is normal. No respiratory distress. Breath sounds: Normal breath sounds. No wheezing or rales. Chest: Chest wall: No tenderness. Abdominal: General: Bowel sounds are normal. There is no distension. Palpations: Abdomen is soft. Tenderness: There is no abdominal tenderness. Musculoskeletal: General: No swelling. Cervical back: Neck supple. Right lower le+ Edema present. Left lower leg: No edema. Comments: Uses a walker to assist with ambulation Skin: General: Skin is warm and dry. Neurological: General: No focal deficit present. Mental Status: She is alert and oriented to person, place, and time. Psychiatric: Mood and Affect: Mood normal. Behavior: Behavior is cooperative. Judgment: Judgment normal. Allergies No Known Allergies Medications Current Outpatient Medications: acetaminophen (Tylenol) 500 mg tablet, 500 mg., Disp: , Rfl: apixaban (Eliquis) 5 mg tablet, Take 1 tablet (5 mg) by mouth in the morning and at bedtime., Disp: 180 tablet, Rfl: 3 ezetimibe (Zetia) 10 mg tablet, Take 1 tablet (10 mg) by mouth in the morning., Disp: 90 tablet, Rfl: 3 glipiZIDE (Glucotrol) 5 mg tablet, Take 1 tablet by mouth in the morning and at bedtime., Disp: , Rfl: metFORMIN (Glucophage) 1,000 mg tablet, Take 1 tablet by mouth in the morning and at bedtime., Disp: , Rfl: metoprolol succinate XL (Toprol-XL) 100 mg 24 hr tablet, Take 1 tablet (100 mg) by mouth in the morning., Disp: 90 tablet, Rfl: 3 rosuvastatin (Crestor) 5 mg tablet, Take 1 tablet (5 mg) by mouth at bedtime., Disp: 90 tablet, Rfl: 3 spironolactone (Aldactone) 25 mg tablet, TAKE 1/2 (ONE-HALF) OF A TABLET BY MOUTH EVERY DAY, Disp: 45 tablet, Rfl: 3 bumetanide (Bumex) 1 mg tablet, Take 1 tablet (1 mg) by mouth if needed (leg swelling and dyspnea)., Disp: 90 tablet, Rfl: 3 lisinopril 20 mg tablet, Take 1 tablet (20 mg) by mouth in the morning., Disp: (more content not included)... [facility] 07-13-2023 Note Patient here for 6 m o follow up CAD, chronic diastolic heart failure, hypertension, and PAF. Dr. Roberson increased lisinopril to 10mg daily at last apt in January 2023. She denies chest pain, SOB, palpitations, and bleeding on Eliquis. Review of Systems Cardiovascular: Positive for leg swelling (RLE). Musculoskeletal: Positive for muscle weakness. Neurological: Positive for weakness. All other systems reviewed and are negative. [facility] 07-13-2023 Note Cardiovascular Medic ine [facility] SUBJECTIVE No chief complaint on file. Saeed Sarabia is a 82 y.o. female here for follow-up. HPI PMHx: *CAD s/p stenting of the LAD and 70% PDA stenosis by cath in 2016 that is managed medically, *paroxysmal atrial fibrillation status post cardioversion in 2016, *diastolic heart failure on diuretic therapy and aldactone *hypertension. -She has tried statins in the past and had reaction. We started her on crestor 5 mg daily and she is tolerating that. She did not tolerate 10 mg daily. She is also tolerating Zetia 10 mg daily. *Diabetes type II *Previously she developed pain in her right leg and underwent a lower extremity arterial duplex study on 12/17/2019 and this showed no evidence of occlusive disease. She was found to have nerve impingement. 07/13/2023 -She has been doing well. -Denies c/o CP, dyspnea, orthopnea, PND, dizziness/LH, palpitations. -She has occasional leg swelling for which she takes her bumex for. -She does not routinely check her BP at home, she does have a cuff. Patient Active Problem List Diagnosis Coronary arteriosclerosis Atrial fibrillation (CMS/HCC) Diastolic heart failure (CMS/HCC) Essential hypertension Hyperlipidemia Mitral valve regurgitation Type 2 diabetes mellitus without complication (CMS/HCC) Constipation Foot drop, right foot Right leg weakness Spinal stenosis Past Medical History: Diagnosis Date Atrial fibrillation (CMS/HCC) CHF (congestive heart failure) ([facility]/HCC) Coronary artery disease Diabetes mellitus ([facility]/HCC) Heart valve disease Hyperlipidemia Hypertension Family History Problem Relation Name Age of Onset Heart attack Mother Coronary artery disease Mother Heart attack Father Coronary artery disease Father Multiple sclerosis Sister Social History Tobacco Use Smoking status: Never Smokeless tobacco: Never Substance Use Topics Alcohol use: Not Currently No Known Allergies ROS Cardiovascular: Positive for leg swelling (RLE). Musculoskeletal: Positive for muscle weakness. Neurological: Positive for weakness. All other systems reviewed and are negative. OBJECTIVE Visit Vitals BP 144/70 (BP Location: Left arm, Patient Position: Sitting) Pulse 60 Ht 1.676 m (5' 6 ) Wt 73 kg (161 lb) SpO2 98% BMI 25.99 kg/m??? Smoking Status Never BSA 1.84 m??? Medications: Current Outpatient Medications: glipiZIDE (Glucotrol) 5 mg tablet, Take 1 tablet by mouth in the morning and at bedtime., Disp: , Rfl: metFORMIN (Glucophage) 1,000 mg tablet, Take 1 tablet by mouth in the morning and at bedtime., Disp: , Rfl: nitroglycerin (Nitrostat) 0.4 mg SL tablet, Place 1 tablet as needed by sublingual route., Disp: , Rfl: apixaban (Eliquis) 5 mg tablet, Take 1 tablet (5 mg) by mouth in the morning and at bedtime., Disp: 180 tablet, Rfl: 3 bumetanide (Bumex) 1 mg tablet, Take 1 tablet (1 mg) by mouth if needed (1/2 to 1 tablet as needed for swelling)., Disp: 90 tablet, Rfl: 1 ezetimibe (Zetia) 10 mg tablet, Take 1 tablet (10 mg) by mouth in the morning., Disp: 90 tablet, Rfl: 3 lisinopril 10 mg tablet, Take 1 tablet (10 mg) by mouth in the morning., Disp: 90 tablet, Rfl: 3 metoprolol succinate XL (Toprol-XL) 100 mg 24 hr tablet, Take 1 tablet (100 mg) by mouth in the morning., Disp: 90 tablet, Rfl: 3 rosuvastatin (Crestor) 5 mg tablet, Take 1 tablet (5 mg) by mouth at bedtime., Disp: 90 tablet, Rfl: 3 spironolactone (Aldactone) 25 mg tablet, TAKE 1/2 (ONE-HALF) OF A TABLET BY MOUTH EVERY DAY, Disp: 45 tablet, Rfl: 3 Physical Exam Vitals reviewed. Constitutional: Appearance: Normal appearance. She is normal weight. HENT: Head: Normocephalic and atraumatic. Right Ear: External ear normal. Left Ear: External ear normal. Eyes: Extraocular Movements: Extraocular movements intact. Conjunctiva/sclera: Conjunctivae normal. Pupils: Pupils are equal, round, and reactive to light. Neck: Vascular: No carotid bruit. Cardiovascular: Rate and Rhythm: Normal rate and regular rhythm. Pulses: Normal pulses. Heart sounds: Normal heart sounds. Pulmonary: Effort: Pulmonary effort is normal. Breath sounds: Normal breath sounds. Abdominal: General: Bowel sounds are normal. Palpations: Abdomen is soft. Musculoskeletal: Cervical back: Neck supple. Right lower leg: No edema. Left lower leg: No edema. Comments: Right foot brace Skin: General: Skin is warm and dry. Neurological: General: No focal deficit present. Mental Status: She is alert and oriented to person, place, and time. Psychiatric: Mood and Affect: Mood normal. Behavior: Behavior normal. Thought Content: Thought content normal. Judgment: Judgment normal. Labs: 08/15/2022 BUN 15, Cr 0.73, eGFR >60, K 4.7, Na 141, ALT 19, AST 18 Chol 127, HDL 48, trig 94, LDL 60 TSH: 0.219 Hgb a1c 6.4 Testing/Procedures: EKG 12/16/2019: Sinus rhythm. Cardiac c (more content not included)... [facility] 09-07-2022 Miscellaneous Notes Images from the original note were not included. [facility] d/c note reviewed: Discharge summary uploaded to [employer]. documented in this encounter [facility] 08-23-2022 Note HNO ID: [id number] Author: Luiz Adam PA-C Service: ? Author Type: Physician Pediatric Allergist Type: Progress Notes Filed: 08/23/2022 1:10 PM Note Text: SPINE SURGERY FOLLOW UP SERVICE DATE: 08/23/2022 SURGERY DATE: 03/31/2022 HPI: Saeed Sarabia is an 81 yo female with history of cardiac stent (on Eliquis)seen for 5 month post operative follow up s/p L2-5 laminectomy on 03/31/[address] Sears. She initially presented with significant right foot drop at which time imaging revealed lumbar stenosis. She was last seen in clinic for 6 week post op appt on 05/17/22. She was given a script for outpatient PT for continued lower extremity strengthening to improve her right foot drop. Today, she reports her right foot drop is continuing to improve. She completed PT twice a week for 6 weeks and feels this helped. She is now doing home exercises with ankle exercises/pumps using the exercise bands, and she is riding the recumbent bike every day for 30 minutes. She feels that overall she is doing well. Denies incisional issues, low back pain, lower extremity pain or paresthesias, gait disturbance, or bowel or bladder incontinence. She wears an AFO brace on the right foot. ANTIPLATELET OR ANTICOAGULATION STATUS: Yes cardiac stent on Eliquis PROMIS Score Percentiles Percentiles provide an indication of how the patient's score ranks in relation to the general population. Higher percentile rankings indicate better function/quality of life. 50th percentile is the average of the general population and indicates half of respondents had a worse score. Depression Screening: PHQ-9 Self-Harm (Item 9) response options: 0 Not at all 1 Several days 2 More than half the days 3 Nearly every day PHQ-9 Levels: 0-4 No to mild depression 5-9 Mild depression 10-14 Moderate depression 15-19 Moderately severe depression 20-27 Severe depression PHYSICAL EXAM: GENERAL APPEARANCE: Moderately obese.In no acute distress NEURO PSYCH: Patient oriented to person, place, and time. Mood pleasant. Benign affect. MUSCULOSKELETAL VISUAL INSPECTION CERVICAL: WNL THORACIC: WNL LUMBAR: WNL, well healed lumbar incision MOTOR: 5/5 in upper extremity muscle groups bilaterally. 4+/5 in bilateral hip flexors, 5/5 in bilateral quadriceps, 2/5 in right DF and PF, 5/5 in left DF and PF SENSORY: Normal sensory exam GAIT: Abnormal. Right foot drop. REFLEXES: +2 to bilateral U/L extremities. PROPRIOCEPTION: Normal. ASSESSMENT/PLAN Saeed Sarabia is an 81 yo female with history of cardiac stent (on Eliquis)seen for 5 month post operative follow up s/p L2-5 laminectomy on 03/31/[address] Sears.Today, she reports her right foot drop is continuing to improve. She completed PT twice a week for 6 weeks and feels this helped. She is now doing home exercises with ankle exercises/pumps using the exercise bands, and she is riding the recumbent bike every day for 30 minutes. She feels that overall she is doing well. Denies incisional issues, low back pain, lower extremity pain or paresthesias, gait disturbance, or bowel or bladder incontinence. She wears an AFO brace on the right foot. Patient is progressing well overall but does continue to have a right foot drop. I anticipate that her right foot drop will continue to improve with more time and strengthening exercises. Advised the patient to continue all that she is currently doing and to contact our office if she would like to resume outpatient PT and I can order a new script. All questions and concerns were answered and addressed. Patient is agreeable with this plan. The majority of the visit was spent counseling and/or coordinating care for the patient. The patient was counseled regarding post op recovery and nerve regeneration. Total face to face time was 10 minutes. SIGNATURE: Luiz Adam PA-C PATIENT NAME: Saeed Sarabia DATE: August 23, 2022 TIME: 9:09 AM PAGER: [facility] 08-23-2022 History of Presen t illness Narrative SPINE SURGERY FOLLOW UP SERVICE DATE: 08/23/2022 SURGERY DATE: 03/31/2022 HPI: Saeed Sarabia is an 81 yo female with history of cardiac stent (on Eliquis)seen for 5 month post operative follow up s/p L2-5 laminectomy on 03/31/[address] Sears. She initially presented with significant right foot drop at which time imaging revealed lumbar stenosis. She was last seen in clinic for 6 week post op appt on 05/17/22. She was given a script for outpatient PT for continued lower extremity strengthening to improve her right foot drop. Today, she reports her right foot drop is continuing to improve. She completed PT twice a week for 6 weeks and feels this helped. She is now doing home exercises with ankle exercises/pumps using the exercise bands, and she is riding the recumbent bike every day for 30 minutes. She feels that overall she is doing well. Denies incisional issues, low back pain, lower extremity pain or paresthesias, gait disturbance, or bowel or bladder incontinence. She wears an AFO brace on the right foot. ANTIPLATELET OR ANTICOAGULATION STATUS: Yes cardiac stent on Eliquis PROMIS Score Percentiles Percentiles provide an indication of how the patient's score ranks in relation to the general population. Higher percentile rankings indicate better function/quality of life. 50th percentile is the average of the general population and indicates half of respondents had a worse score. Depression Screening: PHQ-9 Self-Harm (Item 9) response options: 0 Not at all 1 Several days 2 More than half the days 3 Nearly every day PHQ-9 Levels: 0-4 No to mild depression 5-9 Mild depression 10-14 Moderate depression 15-19 Moderately severe depression 20-27 Severe depression PHYSICAL EXAM: GENERAL APPEARANCE: Moderately obese.In no acute distress NEURO PSYCH: Patient oriented to person, place, and time. Mood pleasant. Benign affect. MUSCULOSKELETAL VISUAL INSPECTION CERVICAL: WNL THORACIC: WNL LUMBAR: WNL, well healed lumbar incision MOTOR: 5/5 in upper extremity muscle groups bilaterally. 4+/5 in bilateral hip flexors, 5/5 in bilateral quadriceps, 2/5 in right DF and PF, 5/5 in left DF and PF SENSORY: Normal sensory exam GAIT: Abnormal. Right foot drop. REFLEXES: +2 to bilateral U/L extremities. PROPRIOCEPTION: Normal. ASSESSMENT/PLAN Saeed Sarabia is an 81 yo female with history of cardiac stent (on Eliquis)seen for 5 month post operative follow up s/p L2-5 laminectomy on 03/31/[address] Sears.Today, she reports her right foot drop is continuing to improve. She completed PT twice a week for 6 weeks and feels this helped. She is now doing home exercises with ankle exercises/pumps using the exercise bands, and she is riding the recumbent bike every day for 30 minutes. She feels that overall she is doing well. Denies incisional issues, low back pain, lower extremity pain or paresthesias, gait disturbance, or bowel or bladder incontinence. She wears an AFO brace on the right foot. Patient is progressing well overall but does continue to have a right foot drop. I anticipate that her right foot drop will continue to improve with more time and strengthening exercises. Advised the patient to continue all that she is currently doing and to contact our office if she would like to resume outpatient PT and I can order a new script. All questions and concerns were answered and addressed. Patient is agreeable with this plan. The majority of the visit was spent counseling and/or coordinating care for the patient. The patient was counseled regarding post op recovery and nerve regeneration. Total face to face time was 10 minutes. SIGNATURE: Luiz Adam PA-C PATIENT NAME: Saeed Sarabia DATE: August 23, 2022 TIME: 9:09 AM PAGER: documented in this encounter [facility] 08-10-2022 History of Presen t illness Narrative Patient presents to the office with a chief complaint of my left foot is severely tender and sore. Patient has complete medial deviation of the fifth first second and third metatarsal causing a protruding of the navicular. Patient has tendinitis at the anterior extensor tendons and deep peroneal brevis and longus tendons are very sore when examined. She had this condition for years and this is the first time viewing the patient and her leg to foot alignment is significantly skewed. Patient was started to develop callus formation on the medial aspect of the navicular patient indicates that at time she feels a pulling on the inside of her foot. This can be related to the posterior tibialis tendon been strained. The patient vascular status and neurological status are intact of the left foot. 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 Peroneal brevis tendinitis of the left foot specifically at the base of the fifth metatarsal where the peroneal brevis is attached. Treatment strapping of the left midfoot with AJ strap and a phone pad in the medial arch. Due to the severe pain and deformity of the foot patient will be recommended to wear an AFO brace or a fusion of the subtalar joint. A prescription for AFO was written today and patient will be make an appointment for its avalibilty documented in this encounter [facility] 07-29-2022 Miscellaneous Notes Paperwork uploaded via [employer]. Sent to Luis Adam for review and signature. Copies faxed to [facility] @ [phone] and onbase. Francis Mcmanus RN SURGERY respiratory therapy aide Calling: Fax received from [facility] Dirk Villareal PT Is Patient Requesting Appointment?: No Is Patient Calling due to Pain?: No Is Patient Requesting Medication?: No General Concerns: Physical Therapy Recertification Note to be signed and returned by fax to [phone]. Patient of: Dr. Sears documented in this encounter [facility] 06-16-2022 Miscellaneous Notes Paperwork uploaded via [employer] and sent to Luis Adam for review and signature. Copies faxed to [employer] at [phone] per request and onbase. Francis Mcmanus RN Form received: From (agency / facility / parent): [facility] door person (if given): none given Phone #: [phone] Fax # : [phone] Email: Information requested: Discharge Physician Orders (Radha) Patient of Dr. Sears documented in this encounter [facility] 05-26-2022 Miscellaneous Notes Forms uploaded via [employer]. Sent to Dr. Sears for review and signature. Copies faxed to [facility] at number provided and onbase. Francis Mcmanus RN Form received: From (agency / facility / parent): [facility] door person (if given): none given Phone #: [phone] Fax # : [phone] Email: Information requested: Physician Orders (Radha) Patient of Dr. Sears documented in this encounter [facility] 05-17-2022 Note HNO ID: [id number] Author: Juice Sears MD Service: ? Author Type: Physician Type: Progress Notes Filed: 05/17/2022 3:46 PM Note Text: SPINE SURGERY FOLLOW UP SERVICE DATE: 05/17/2022 SURGERY DATE: 03/31/22 CC: 6 week post op appt HPI: Saeed Sarabia is a 81 yo F with history of cardiac stent (on Eliquis) who underwent a L2-L5 laminectomy performed by Dr. Sears on 03/31/22 and is presenting today for 6 week post op appointment. She initially presented with significant right foot drop and imaging revealed lumbar spinal stenosis. Patient tolerated the procedure well and was discharged on 04/07/22. Today, she endorses some mild low back soreness, denies pain. Endorses continued lower extremity weakness and right foot paresthesias that occur with exercise, however she feels the right foot drop has significantly improved. She ambulates with the assistance of a walker around the house. She denies bowel or bladder incontinence, saddle anesthesia, upper extremity symptoms, and lower extremity radiculopathy. She is currently participating in physical therapy 2 x week with home health and feels it is going well. ANTIPLATELET OR ANTICOAGULATION STATUS: resumed Eliquis on 04/10/22 PHYSICAL EXAM: GENERAL APPEARANCE: Well nourished, well developed, and no apparent distress. NEURO PSYCH: Patient oriented to person, place, and time. Mood pleasant. Benign affect. MUSCULOSKELETAL: VISUAL INSPECTION CERVICAL: WNL THORACIC: WNL LUMBAR: WNL, well healed surgical incision without swelling, drainage, or wound dehiscence MOTOR: strength is 5/5 throughout all muscle groups in the upper extremities bilaterally, strength is 4/5 in right hip flexor, 4/5 right quad, 2/5 right dorsiflexor, 2/5 EHL and 4/5 plantarflexor, Strength is 5/5 throughout all muscle groups in the left lower extremity SENSORY: Normal sensory exam GAIT: slow and slightly unsteady REFLEXES: +2 to bilateral U/L extremities. ASSESSMENT/PLAN Saeed Sarabia is a 81 yo F here today for 6 week post operative follow up s/p L2-[address] Sears on 03/31/22. She initially presented with right foot drop and imaging revealed spinal stenosis. Patient tolerated the procedure well and was discharged on 04/07/22. Patient was given a script for outpatient physical therapy and she can follow up with Dr. Sears in 3 months to check on her progress. Luiz Adam PA-C May 17, 2022 1:04 PM SIGNATURE: Juice Sears MD PATIENT NAME: Saeed Sarabia DATE: May 17, 2022 TIME: 11:12 AM PAGER: Postop visit s/p lumbar laminectomy for lumbar radicular syndrome incision good R foot drop improving walking with walker Should start OP PT Juice Sears MD [facility] 05-17-2022 History of Presen t illness Narrative SPINE SURGERY FOLLOW UP SERVICE DATE: 05/17/2022 SURGERY DATE: 03/31/22 CC: 6 week post op appt HPI: Saeed Sarabia is a 81 yo F with history of cardiac stent (on Eliquis) who underwent a L2-L5 laminectomy performed by Dr. Sears on 03/31/22 and is presenting today for 6 week post op appointment. She initially presented with significant right foot drop and imaging revealed lumbar spinal stenosis. Patient tolerated the procedure well and was discharged on 04/07/22. Today, she endorses some mild low back soreness, denies pain. Endorses continued lower extremity weakness and right foot paresthesias that occur with exercise, however she feels the right foot drop has significantly improved. She ambulates with the assistance of a walker around the house. She denies bowel or bladder incontinence, saddle anesthesia, upper extremity symptoms, and lower extremity radiculopathy. She is currently participating in physical therapy 2 x week with home health and feels it is going well. ANTIPLATELET OR ANTICOAGULATION STATUS: resumed Eliquis on 04/10/22 PHYSICAL EXAM: GENERAL APPEARANCE: Well nourished, well developed, and no apparent distress. NEURO PSYCH: Patient oriented to person, place, and time. Mood pleasant. Benign affect. MUSCULOSKELETAL: VISUAL INSPECTION CERVICAL: WNL THORACIC: WNL LUMBAR: WNL, well healed surgical incision without swelling, drainage, or wound dehiscence MOTOR: strength is 5/5 throughout all muscle groups in the upper extremities bilaterally, strength is 4/5 in right hip flexor, 4/5 right quad, 2/5 right dorsiflexor, 2/5 EHL and 4/5 plantarflexor, Strength is 5/5 throughout all muscle groups in the left lower extremity SENSORY: Normal sensory exam GAIT: slow and slightly unsteady REFLEXES: +2 to bilateral U/L extremities. ASSESSMENT/PLAN Saeed Sarabia is a 81 yo F here today for 6 week post operative follow up s/p L2-[address] Sears on 03/31/22. She initially presented with right foot drop and imaging revealed spinal stenosis. Patient tolerated the procedure well and was discharged on 04/07/22. Patient was given a script for outpatient physical therapy and she can follow up with Dr. Sears in 3 months to check on her progress. Luiz Adam PA-C May 17, 2022 1:04 PM SIGNATURE: Juice Sears MD PATIENT NAME: Saeed Sarabia DATE: May 17, 2022 TIME: 11:12 AM PAGER: Postop visit s/p lumbar laminectomy for lumbar radicular syndrome incision good R foot drop improving walking with walker Should start OP PT Juice Sears MD documented in this encounter [facility] 05-12-2022 Miscellaneous Notes Forms uploaded via [employer]. Sent to Dr. Sears for review and signature. Copies faxed to [facility] at [phone] and onbase. Francis Mcmanus RN Form received: From (agency / facility / parent): [facility] door person (if given): Phone #: [phone] Fax # : [phone] Email: Information requested: Physicians orders Patient of Dr. Sears Forwarded to nurse. documented in this encounter [facility] 05-06-2022 Miscellaneous Notes POC paperwork uploaded to [employer] and sent to Dr. Sears for review and signature. Copies faxed to [facility] at [phone] and onbase. Francis Mcmanus RN SURGERY respiratory therapy aide Calling: [facility] Is Patient Requesting Appointment?: No Is Patient Calling due to Pain?: No Is Patient Requesting Medication?: No General Concerns: Plan of Care 04/17/22 - 06/15/22 Patient of: Dr. Sears documented in this encounter [facility] 04-29-2022 Miscellaneous Notes Spoke to Mojgan from [facility] regarding plan of care - explained that Dr. Platt will not typically follow patients for extended recovery past the post surgical period. Saeed has a follow up appointment 05/17 - will discuss at this time if her home health plan of care needs to be transitioned to a different practitioner. Forms uploaded to [employer] and sent to Dr. Sears for review and signature. Copies faxed to [employer] [phone] and onbase. Francis Mcmanus RN Form received: From (agency / facility / parent): [facility] door person (if given): Mojgan Phone #: [phone] Fax # : ATTJanet Ulrich [phone] Email: Information requested: Plan of care Patient of Dr. Sears documented in this encounter [facility] 04-22-2022 Miscellaneous Notes Forms received. Uploaded to [employer] and sent to Dr. Sears for review and signature. Copies sent to [facility] at fax [phone] and onbase. Francis Mcmanus RN Form received: From (agency / facility / parent): [facility] door person (if given): Saeed Sarabia Phone #: [phone] (home) Fax # : [phone] Email: Information requested: therapy evaluation and care plan Patient of Dr. sears documented in this encounter [facility] 04-20-2022 Miscellaneous Notes PT and home care orders faxed to listed contact and number below. Can fax orders to [phone] to Debbie Miller. Cris Leger RN at [facility] [phone], reports start of care for skilled nurse, PT, OT, ST and bath aide as of 04/16/22. No callback is necessary. Called and left vm with ELFEGO Elliott - requesting fax or email to provide requested orders. Francis Mcmanus RN Called and left VM to Debbie, RN - requesting fax number or email to send PT/home health orders. Francis Mcmanus RN Orders placed Dimas Ferreira APRN.LEXI Patient s/p 03/31/2022: L2-L5 laminectomy with Dr. Sears. Home health agency is requesting PT and home health order - per epic review, no orders seen in chart. Will forward to BLAYNE for review. Francis Mcmanus RN SURGERY respiratory therapy aide Calling: Debibe Miller RNdebt management counselor team leader [facility] direct line Is Patient Requesting Appointment?: No Is Patient Calling due to Pain?: No Is Patient Requesting Medication?: No General Concerns: Requesting orders for home health PT and nurse to check on patient in the home. Patient of: Dr. Sears documented in this encounter [facility] 04-13-2022 Progress note Note Date/Time April 13, 2022 1:52pm [facility] [address] [place] [address] Physiatry(Rehab) Progress Note Signed Patient: Saeed Sarabia MR#: [id number] : 1940 Acct:[id number] Age/Sex: 81 / F Adm Date: 2 Loc: Room: 8V1149-2 Type : ADM IN Attending Dr: Kingston Gao MD Copies to: ~ <Brooklyn Swanson APRN - Last Filed: 04/13/22 13:52> Date of Service: 04/13/2022 Subjective <Brooklyn Swanson APRN - Last Filed: 04/13/22 13:52> Subjective Narrative: Ms. Sarabia is a 81 year old female with medical history of type 2 diabetes, A. fib anticoagulated with Eliquis, CAD, hypertension, hyperlipidemia presents to inpatient rehabilitation for strengthening s/p lumbar decompression surgery. She initially presented to [facility] ER on 03/23/2022 with complaints of bilateral lower extremity weakness (R>L), numbness, tingling, and right foot drop, as well as perineal numbness without difficulty urinating. She reported lower back pain with associated right lower extremity weakness for approximately6 months. The symptoms became progressively worse prior to the recent ER visit,which prompted her to start using a walker to assist with ambulation. She has had an MRI performed at [place] with Dr. 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 She was scheduled to have a lumbar surgery, but it was cancelled. [facility] neurosurgery was consulted, as there was no neurosurg coverage at [facility] on the day of admission. She was accepted to [facility] and transferred non-emergently, since there was no cauda equina-like symptoms. On 03/31/2022 she underwent L2-L5 laminectomy with arachnoid bleb repair with Tacho[employer] by Dr. Sears. No significant postop complications. On transfer to rehab, she reports improvement in bilateral lower extremity weakness, left leg paresthesias nearly resolved; residual numbness, tingling, burning sensation to the medial aspect of the right lower leg. Right foot drop persists, she was fitted for AFO brace. Back pain and lower extremity pain is improving, although she does report occasional shooting pains in the right leg. She reports being independent at baseline. She lives with her , who is in good health and able to assist with ADLs if needed. She stopped driving several months ago due to pain and weakness in the right lower extremity. Normally, she is ambulatory without an assistive device, however, has been usinga walker for the past several months. Interval history: She has no acute complaints. Reports no back pain. Incision assessed this morning, and no signs of infection/drainage noted. Sutures were removed yesterday, per patient report. She does endorse some right foot pain with weightbearing, as well as some neuropathic pain in RLE. Continues to wear AFO brace, believes it helps tremendously with ambulation. She ambulated 235 feet with a wheeled walker and contact-guard/standby assist x1in therapy this morning. Review of Systems <Brooklyn Swanson APRN - Last Filed: 04/13/22 13:52> Constitutional Constitutional: Denies fever(s) and Reports weakness Eyes Eyes: Reports system reviewed and no additional complaints, except as documented ENT Ears, Nose, Mouth, and Throat: Reports system reviewed and no additional complaints, except as documented Cardiovascular Cardiovascular: Reports system reviewed and no additional complaints, except as documented Respiratory Respiratory: Reports system reviewed and no additional complaints, except as documented Gastrointestinal Gastrointestinal: Reports system reviewed and no additional complaints, except as documented Genitourinary Genitourinary: Reports system reviewed and no additional complaints, except as documented Musculoskeletal Musculoskeletal: Reports abnormal gait, Reports muscle weakness, Reports numbness, Reports radiating pain into limb and Reports tingling Integumentary/Breasts Skin/Breast: Reports system reviewed and no additional complaints, except as documented Neurologic Neurologic: Reports system reviewed and no additional complaints, except as documented, Reports abnormal gait, Reports numbness, Reports tingling and Reports weakness Psychiatric Psychiatric: Reports system reviewed and no additional complaints, except as documented Endocrine Endocrine: Reports system reviewed and no additional complaints, except as documented Hematologic/Lymphatic Hematologic/Lymphatic: Reports system reviewed and no additional complaints, except as documented Allergic/Immunologic Allergic/Immunologic: Reports system reviewed and no additional complaints, except as documented Exam <Brooklyn Swanson APRN - Last Filed: 04/13/22 13:52> Physical Exam Vital Signs: Temp Pulse Resp BP Pulse Ox 98.5 F 79 16 125/73 96 04/13/22 05:00 04/13/22 05:00 04/13/22 05:00 04/13/22 05:00 04/13/22 05:00 Const General: cooperative, comfortable, no acute distress and well developed Nutritional Appearance: average body habitus Orientation: alert, awake and oriented x3 HEENT Head: normal to inspection Ears: hearing grossly normal bilaterally Eyes General: appearance normal, both eyes and all related structures Pupils: PERRL EOM: EOM intact bilaterally Neck Neck: full ROM, no lymphadenopathy, trachea midline, supple and nontender Chest Chest palpation & inspection: normal inspection of the chest Resp Effort & Inspection: normal respiratory effort, able to speak in complete sentences, symmetric chest movement, audible wheezes, no cough and not labored Auscultation: clear to auscultation bilaterally Cardio Jugular venous pressure: no JVD Palpation: normal PMI Heart Sounds: S1 normal and S2 normal GI Inspection: normal to inspection Palpation: soft, no hepatosplenomegaly and nontender Auscultation: normal bowel sounds General: deferred Musc Cervical Spine: cervical ROM normal Thoracic/Lumbar Spine: pain with thoraco-lumbar ROM Skin General: no rashes or lesions noted Neuro General: patient alert, patient awake and patient oriented x3 Cognition: normal cognition Speech: speech normal Motor: strength not 5/5 throughout and muscle tone abnormal Extrem General: abnormal ROM, capillary refill normal, no joint enlargement, no clubbing, cyanosis or edema, no pedal edema and no calf tenderness Psych Appearance: grossly normal Mood: congruent mood Affect: normal affect Speech and Movement: speech and movement normal Attitude: cooperative Thought Process: normal Thought Content: normal Insight: insight good Judgment: judgment good Objective <Brooklyn Swanson APRN - Last Filed: 04/13/22 13:52> Labs CBC & Chem 7: 04/08/22 06:00 04/08/22 06:00 Labs: Laboratory Results - last 24 hr 04/12/22 04/13/22 16:16 05:10 POC Glucose 238 76 POC Glucose Comment Glu2: cleaned meter Medications and Allergies Allergies and Active Meds: Allergies No Known Allergies Allergy (Verified 03/23/22 15:37) Active Medications Generic Name Dose Route Start Last Admin Trade Name Braedenq PRN Reason Stop Dose Admin Acetaminophen 500 mg 04/07/22 15:58 04/13/22 09:08 Acetaminophen 500 Mg Tablet PO 04/07/23 15:57 500 mg Q4H PRN Administration Pain Al Hydrox/Mg Hydrox/Simethicone 30 ml 04/07/22 15:58 Mag Hydrox/Al Hydrox/Simeth 30 Ml Udc PO 04/07/23 15:57 Q4H PRN Indigestion Apixaban 5 mg 04/10/22 09:00 04/13/22 08:41 Apixaban 5 Mg Tablet PO 04/10/23 08:59 5 mg BID LAUREN Administration Atorvastatin Calcium 40 mg 04/10/22 09:00 04/13/22 09:09 Atorvastatin 40 Mg Tablet PO 04/10/23 08:59 40 mg DAILY LAUREN Administration Bisacodyl 10 mg 04/07/22 15:58 Bisacodyl 10 Mg Supp.Rect [place] 04/07/23 15:57 DAILY PRN Constipation Bumetanide 0.5 - 1 mg 04/07/22 16:06 Bumetanide 1 Mg Tablet PO 04/07/23 16:05 DAILY PRN Edema Cyclobenzaprine HCl 5 mg 04/07/22 16:06 04/12/22 20:08 Cyclobenzaprine 5 Mg Tablet PO 5 mg TID PRN Administration Spasms Docusate Sodium 100 mg 04/07/22 15:58 Docusate 100 Mg Capsule PO 04/07/23 15:57 BID PRN Constipation Docusate Sodium 283 mg 04/07/22 15:58 Docusate Enema 283 Mg/5 Ml Enema [place] 04/07/23 15:57 DAILY PRN Constipation Gabapentin 100 mg 04/07/22 22:00 04/13/22 13:37 Gabapentin 100 Mg Capsule PO 04/07/23 21:59 100 mg TID LAUREN Administration Glipizide 5 mg 04/07/22 17:00 04/13/22 08:41 Glipizide 5 Mg Tablet PO 04/07/23 16:59 5 mg BID.WITH.MEALS LAUREN Administration Lactulose 30 gm 04/07/22 15:58 Lactulose 20 Gm/30 Ml Udc PO 04/07/23 15:57 DAILY PRN Constipation Lidocaine 2 patch 04/08/22 09:00 04/13/22 08:42 Lidocaine 4% Adh..Patch TOPICAL 04/08/23 08:59 2 patch DAILY LAUREN Administration Lisinopril 5 mg 04/08/22 09:00 04/13/22 08:41 Lisinopril 5 Mg Tablet PO 04/08/23 08:59 5 mg DAILY LAUREN Administration Metformin HCl 500 mg 04/07/22 17:00 04/13/22 08:41 Metformin 500 Mg Tablet PO 04/07/23 16:59 500 mg BID.WITH.MEALS LAUREN Administration Metoprolol Succinate 100 mg 04/08/22 09:00 04/13/22 08:41 Metoprolol Succinate 100 Mg Tab.Er.24h PO 04/08/23 08:59 100 mg DAILY LAUREN Administration Oxycodone HCl 5 mg 04/07/22 15:57 Oxycodone Ir 5 Mg Tablet PO Q4HR PRN Pain Sennosides 2 tab 04/08/22 12:00 Sennosides 8.6 Mg Tablet PO 04/08/23 11:59 DAILY@12 PRN If no BM in 2 days Sodium Chloride 0 ml 04/07/22 15:58 Sodium Chloride 0.9 % 10 Ml Syringe IV-PUSH 04/07/23 15:57 PRN PRN Flush Spironolactone 12.5 mg 04/08/22 09:00 04/13/22 08:41 Spironolactone 12.5 Mg Tablet PO 04/08/23 08:59 12.5 mg DAILY LAUREN Administration Assessment/Plan <Brooklyn Swanson, FABRIC WORKER SUPERVISOR - Last Filed: 04/13/22 13:52> Assessment/Plan (1) Diabetes: Plan: Stable on current oral medication regimen. Code(s): E11.9 - Type 2 diabetes mellitus without complications Status: Acute (2) Hyperlipidemia: Assessment/Problem Details: Stable, continue current red man Code(s): E78.5 - Hyperlipidemia, unspecified Status: Acute (3) Hypertension: Code(s): I10 - Essential (primary) hypertension Status: Acute (4) Atrial fibrillation: Assessment/Problem Details: Anticoagulated with Eliquis, which has been on hold for surgery. May resume 10 days postop, meanwhile continue heparin subcu Code(s): I48.91 - Unspecified atrial fibrillation Status: Acute (5) Foot drop, right: Assessment/Problem Details: Continue AFO brace Code(s): M21.371 - Foot drop, right foot Status: Acute (6) S/P lumbar laminectomy: Assessment/Problem Details: S/p lumbar laminectomy L2-L5 on 03/31/2022 with arachnoid bleb repair. Code(s): Z98.890 - Other specified postprocedural states Status: Acute (7) Impaired mobility and activities of daily living: Assessment/Problem Details: PT/OT to evaluate and treat. Code(s): Z74.09 - Other reduced mobility; Z78.9 - Other specified health status Status: Acute Plan 81-year-old female with longstanding history of lumbar stenosis with associated back pain and bilateral lower extremity weakness and paresthesia, s/p lumbar laminectomy at L2-L5 level with arachnoid bleb repair. * Endorses no acute complaints. * Vital signs are stable she is afebrile. * Lumbar incision healed sutures removed yesterday, incision is well approximated without signs of infection. There is no drainage noted. * Planning for home-going end of this week. Patient education Pressure ulcer prophylaxis; encourage mobilization, frequent postural changes, pressure-relief techniques DVT prophylaxis: Continue heparin SQ 3 times daily, resume home Eliquis on 04/10/2022 Encourage deep breathing exercise incentive spirometry. Monitor bladder. Toileting schedule. Continue current bladder management, with scans as needed and CIC if needed. Start bowel care program every day to obtain continence, prevent ileus. Maintain fall precautions Gait and balance retraining Functional training and self-care and home management, including activities of daily living and instrumental activities of daily living Provision of the necessary gait aids and functional adaptive equipment to enhance the patient's a functional latter-day Ensure adequate nutrition and hydration Sleep: Reports no issues Pain: Reports Tylenol provides sufficient relief. Occasional neuropathic pains in the right lower leg, may increase gabapentin as needed. Discharge planning: Home with End of this week. I spent greater than 15 minutes for services, including [id number] encounter with the patient, discussion of the case, plan of care, and exam; and [id number] activities, such as reviewing pertinent area development consultant documentation, recent therapy notes, laboratory and radiology studies, and discussion of case with care team including physician, nursing, human services case manager, and therapists. More than 50 % of time was spent on patient/family counseling or coordination ofcare. <Kingston Gao MD - Last Filed: 04/13/22 20:47> Assessment/Plan (1) Diabetes: (2) Hyperlipidemia: (3) Hypertension: (4) Atrial fibrillation: (5) Foot drop, right: (6) S/P lumbar laminectomy: (7) Impaired mobility and activities of daily living: Plan: Patient was personally seen by me, Dr. Gao, on the day of encounter, reviewed the history and the relevant portions of the chart, including current orders, allied health and area development consultant notes, labs/imaging and performed jacobs elements of exam and I formulated the plan of care and facilitated the medical decision making and confirmed the nurse practitioner note, as above Plan for home Monday with family FI went well today Documented By: Brooklyn Swanson, OMID 04/13/22 1 342 Signed By: <Electronically signed by OMID Swanson> 04/13/22 1352 <Electronically signed by Kingston Gao MD> 04/13/222046 [facility] Work Phone: 1(962) 691-310507-06-2022 Progress note Author Kingston Gao [facility] April 13, 2022 10:22am Note Date/Time April 13, 2022 10:15 am [facility] [address] [place] [address] Physiatry(Rehab) Progress Note Signed Patient: Saeed Sarabia MR#: [id number] : 1940 Acct:[id number] Age/Sex: 81 / F Adm Date: 2 Loc: Room: 3A5675-5 Type : ADM IN Attending Dr: Kingston Gao MD Copies to: ~ Date of Service: 04/12/2022 Subjective Subjective Narrative: Ms. Sarabia is a 81 year old female with medical history of type 2 diabetes, A. fib anticoagulated with Eliquis, CAD, hypertension, hyperlipidemia presents to inpatient rehabilitation for strengthening s/p lumbar decompression surgery. She initially presented to [facility] ER on 03/23/2022 with complaints of bilateral lower extremity weakness (R>L), numbness, tingling, and right foot drop, as well as perineal numbness without difficulty urinating. She reported lower back pain with associated right lower extremity weakness for approximately6 months. The symptoms became progressively worse prior to the recent ER visit,which prompted her to start using a walker to assist with ambulation. She has had an MRI performed at [place] with Dr. 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 She was scheduled to have a lumbar surgery, but it was cancelled. [facility] neurosurgery was consulted, as there was no neurosurg coverage at [facility] on the day of admission. [facility] accepted [facility] and transferred non-emergently, since there was no cauda equina-like symptoms. On 03/31/2022 she underwent L2-L5 laminectomy with arachnoid bleb repair with TachoSil by Dr. Sears. No significant postop complications. On transfer to rehab, she reports improvement in bilateral lower extremity weakness, left leg paresthesias nearly resolved; residual numbness, tingling, burning sensation to the medial aspect of the right lower leg. Right foot drop persists, she was fitted for AFO brace. Back pain and lower extremity pain is improving, although she does report occasional shooting pains in the right leg. She reports being independent at baseline. She lives with her , who is in good health and able to assist with ADLs if needed. She stopped driving several months ago due to pain and weakness in the right lower extremity. Normally, she is ambulatory without an assistive device, however, has been usinga walker for the past several months. Interval history: She is doing well Progressing towards functional goals Standby assist with mobility and self-care Getting some return at the ankle She has chronic bilateral edema in her lower extremities, we discussed teds thatshe uses at home Discussed at team meeting Family at the bedside. Review of Systems Constitutional Constitutional: Denies fever(s) and Reports weakness Eyes Eyes: Reports system reviewed and no additional complaints, except as documented ENT Ears, Nose, Mouth, and Throat: Reports system reviewed and no additional complaints, except as documented Cardiovascular Cardiovascular: Reports system reviewed and no additional complaints, except as documented Respiratory Respiratory: Reports system reviewed and no additional complaints, except as documented Gastrointestinal Gastrointestinal: Reports system reviewed and no additional complaints, except as documented Genitourinary Genitourinary: Reports system reviewed and no additional complaints, except as documented Musculoskeletal Musculoskeletal: Reports abnormal gait, Reports muscle weakness, Reports numbness, Reports radiating pain into limb and Reports tingling Integumentary/Breasts Skin/Breast: Reports system reviewed and no additional complaints, except as documented Neurologic Neurologic: Reports system reviewed and no additional complaints, except as documented, Reports abnormal gait, Reports numbness, Reports tingling and Reports weakness Psychiatric Psychiatric: Reports system reviewed and no additional complaints, except as documented Endocrine Endocrine: Reports system reviewed and no additional complaints, except as documented Hematologic/Lymphatic Hematologic/Lymphatic: Reports system reviewed and no additional complaints, except as documented Allergic/Immunologic Allergic/Immunologic: Reports system reviewed and no additional complaints, except as documented Exam Physical Exam Vital Signs: Temp Pulse Resp BP Pulse Ox 98.5 F 79 16 125/73 96 04/13/22 05:00 04/13/22 05:00 04/13/22 05:00 04/13/22 05:00 04/13/22 05:00 Const General: cooperative, comfortable, no acute distress and well developed Nutritional Appearance: average body habitus Orientation: alert, awake and oriented x3 HEENT Head: normal to inspection Ears: hearing grossly normal bilaterally Eyes General: appearance normal, both eyes and all related structures Pupils: PERRL EOM: EOM intact bilaterally Neck Neck: full ROM, no lymphadenopathy, trachea midline, supple and nontender Chest Chest palpation & inspection: normal inspection of the chest Resp Effort & Inspection: normal respiratory effort, able to speak in complete sentences, symmetric chest movement, audible wheezes, no cough and not labored Auscultation: clear to auscultation bilaterally Cardio Jugular venous pressure: no JVD Palpation: normal PMI Heart Sounds: S1 normal and S2 normal GI Inspection: normal to inspection Palpation: soft, no hepatosplenomegaly and nontender Auscultation: normal bowel sounds General: deferred Musc Cervical Spine: cervical ROM normal Thoracic/Lumbar Spine: pain with thoraco-lumbar ROM Skin General: no rashes or lesions noted Neuro General: patient alert, patient awake and patient oriented x3 Cognition: normal cognition Speech: speech normal Motor: strength not 5/5 throughout and muscle tone abnormal Extrem General: abnormal ROM, capillary refill normal, no joint enlargement, no clubbing, cyanosis or edema, no pedal edema and no calf tenderness Psych Appearance: grossly normal Mood: congruent mood Affect: normal affect Speech and Movement: speech and movement normal Attitude: cooperative Thought Process: normal Thought Content: normal Insight: insight good Judgment: judgment good Objective Labs CBC & Chem 7: 04/08/22 06:00 04/08/22 06:00 Labs: Laboratory Results - last 24 hr 04/12/22 04/13/22 16:16 05:10 POC Glucose 238 76 POC Glucose Comment Glu2: cleaned meter Medications and Allergies Allergies and Active Meds: Allergies No Known Allergies Allergy (Verified 03/23/22 15:37) Active Medications Generic Name Dose Route Start Last Admin Trade Name Freq PRN Reason Stop Dose Admin Acetaminophen 500 mg 04/07/22 15:58 04/13/22 09:08 Acetaminophen 500 Mg Tablet PO 04/07/23 15:57 500 mg Q4H PRN Administration Pain Al Hydrox/Mg Hydrox/Simethicone 30 ml 04/07/22 15:58 Mag Hydrox/Al Hydrox/Simeth 30 Ml Udc PO 04/07/23 15:57 Q4H PRN Indigestion Apixaban 5 mg 04/10/22 09:00 04/13/22 08:41 Apixaban 5 Mg Tablet PO 04/10/23 08:59 5 mg BID LAUREN Administration Atorvastatin Calcium 40 mg 04/10/22 09:00 04/13/22 09:09 Atorvastatin 40 Mg Tablet PO 04/10/23 08:59 40 mg DAILY LAUREN Administration Bisacodyl 10 mg 04/07/22 15:58 Bisacodyl 10 Mg Supp.Rect [place] 04/07/23 15:57 DAILY PRN Constipation Bumetanide 0.5 - 1 mg 04/07/22 16:06 Bumetanide 1 Mg Tablet PO 04/07/23 16:05 DAILY PRN Edema Cyclobenzaprine HCl 5 mg 04/07/22 16:06 04/12/22 20:08 Cyclobenzaprine 5 Mg Tablet PO 5 mg TID PRN Administration Spasms Docusate Sodium 100 mg 04/07/22 15:58 Docusate 100 Mg Capsule PO 04/07/23 15:57 BID PRN Constipation Docusate Sodium 283 mg 04/07/22 15:58 Docusate Enema 283 Mg/5 Ml Enema [place] 04/07/23 15:57 DAILY PRN Constipation Gabapentin 100 mg 04/07/22 22:00 04/13/22 08:41 Gabapentin 100 Mg Capsule PO 04/07/23 21:59 100 mg TID LAUREN Administration Glipizide 5 mg 04/07/22 17:00 04/13/22 08:41 Glipizide 5 Mg Tablet PO 04/07/23 16:59 5 mg BID.WITH.MEALS LAUREN Administration Lactulose 30 gm 04/07/22 15:58 Lactulose 20 Gm/30 Ml Udc PO 04/07/23 15:57 DAILY PRN Constipation Lidocaine 2 patch 04/08/22 09:00 04/13/22 08:42 Lidocaine 4% Adh..Patch TOPICAL 04/08/23 08:59 2 patch DAILY LAUREN Administration Lisinopril 5 mg 04/08/22 09:00 04/13/22 08:41 Lisinopril 5 Mg Tablet PO 04/08/23 08:59 5 mg DAILY LAUREN Administration Metformin HCl 500 mg 04/07/22 17:00 04/13/22 08:41 Metformin 500 Mg Tablet PO 04/07/23 16:59 500 mg BID.WITH.MEALS LAUREN Administration Metoprolol Succinate 100 mg 04/08/22 09:00 04/13/22 08:41 Metoprolol Succinate 100 Mg Tab.Er.24h PO 04/08/23 08:59 100 mg DAILY LAUREN Administration Oxycodone HCl 5 mg 04/07/22 15:57 Oxycodone Ir 5 Mg Tablet PO Q4HR PRN Pain Sennosides 2 tab 04/08/22 12:00 Sennosides 8.6 Mg Tablet PO 04/08/23 11:59 DAILY@12 PRN If no BM in 2 days Sodium Chloride 0 ml 04/07/22 15:58 Sodium Chloride 0.9 % 10 Ml Syringe IV-PUSH 04/07/23 15:57 PRN PRN Flush Spironolactone 12.5 mg 04/08/22 09:00 04/13/22 08:41 Spironolactone 12.5 Mg Tablet PO 04/08/23 08:59 12.5 mg DAILY LAUREN Administration Assessment/Plan Assessment/Plan (1) Diabetes: Plan: Stable on current oral medication regimen. Code(s): E11.9 - Type 2 diabetes mellitus without complications Status: Acute (2) Hyperlipidemia: Assessment/Problem Details: Stable, continue current red man Code(s): E78.5 - Hyperlipidemia, unspecified Status: Acute (3) Hypertension: Code(s): I10 - Essential (primary) hypertension Status: Acute (4) Atrial fibrillation: Assessment/Problem Details: Anticoagulated with Eliquis, which has been on hold for surgery. May resume 10 days postop, meanwhile continue heparin subcu Code(s): I48.91 - Unspecified atrial fibrillation Status: Acute (5) Foot drop, right: Assessment/Problem Details: Continue AFO brace Code(s): M21.371 - Foot drop, right foot Status: Acute (6) S/P lumbar laminectomy: Assessment/Problem Details: S/p lumbar laminectomy L2-L5 on 03/31/2022 with arachnoid bleb repair. Code(s): Z98.890 - Other specified postprocedural states Status: Acute (7) Impaired mobility and activities of daily living: Assessment/Problem Details: PT/OT to evaluate and treat. Code(s): Z74.09 - Other reduced mobility; Z78.9 - Other specified health status Status: Acute Plan 81-year-old female with longstanding history of lumbar stenosis with associated back pain and bilateral lower extremity weakness and paresthesia, s/p lumbar laminectomy at L2-L5 level with arachnoid bleb repair. She is doing really well Progressing appropriately towards functional goals Pain is controlled Ambulating 235 feet Patient education Pressure ulcer prophylaxis; encourage mobilization, frequent postural changes, pressure-relief techniques DVT prophylaxis: Continue heparin SQ 3 times daily, resume home Eliquis on 04/10/2022 Encourage deep breathing exercise incentive spirometry. Monitor bladder. Toileting schedule. Continue current bladder management, with scans as needed and CIC if needed. Start bowel care program every day to obtain continence, prevent ileus. Maintain fall precautions Gait and balance retraining Functional training and self-care and home management, including activities of daily living and instrumental activities of daily living Provision of the necessary gait aids and functional adaptive equipment to enhance the patient's a functional latter-day Ensure adequate nutrition and hydration Sleep: Reports no issues Pain: Reports Tylenol provides sufficient relief. Occasional neuropathic pains in the right lower leg, may increase gabapentin as needed. Discharge planning: Home with End of this week. Documented By: Kingston Gao MD 04/12/22 101 Signed By: <Electronically signed by Kingston Gao MD> 04/13/22 1022 [facility] Work Phone: 1(163) 996-315407-01-2022 History and physical note Author Kingston Gao [facility] April 08, 2022 1:06pm Note Date/Time April 08, 2022 10:50 am [facility] [address] [place] [address] Physiatry (Rehab) H&P Signed Patient: Saeed Sarabia MR#: [id number] : 1940 Acct:[id number] Age/Sex: 81 / F Adm Date: 2 Loc: Room: 7R7846-7 Type : ADM IN Attending Dr: Kingston Gao MD Copies to: OMID Walker MD Lisa J Aichholz, MODELING TEACHER-C~ <Brooklyn Swanson APRN - Last Filed: 04/08/22 13:03> Date of Service: 04/08/2022 HPI <Brooklyn Swanson APRN - Last Filed: 04/08/22 13:03> The patient was seen and examined on: 04/08/22 History of Present Illness: Ms. Sarabia is a 81 year old female with medical history of type 2 diabetes, A. fib anticoagulated with Eliquis, CAD, hypertension, hyperlipidemia presents to inpatient rehabilitation for strengthening s/p lumbar decompression surgery. She initially presented to [facility] ER on 03/23/2022 with complaints of bilateral lower extremity weakness (R>L), numbness, tingling, and right foot drop, as well as perineal numbness without difficulty urinating. She reported lower back pain with associated right lower extremity weakness for approximately6 months. The symptoms became progressively worse prior to the recent ER visit,which prompted her to start using a walker to assist with ambulation. She has had an MRI performed at [place] with Dr. 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 She was scheduled to have a lumbar surgery, but it was cancelled. [facility] neurosurgery was consulted, as there was no neurosurg coverage at [facility] on the day of admission. She was accepted to [facility] and transferred non-emergently, since there was no cauda equina-like symptoms. On 03/31/2022 she underwent L2-L5 laminectomy with arachnoid bleb repair with TachoSil by Dr. Sears. No significant postop complications. On transfer to rehab, she reports improvement in bilateral lower extremity weakness, left leg paresthesias nearly resolved; residual numbness, tingling, burning sensation to the medial aspect of the right lower leg. Right foot drop persists, she was fitted for AFO brace. Back pain and lower extremity pain is improving, although she does report occasional shooting pains in the right leg. She reports being independent at baseline. She lives with her , who is in good health and able to assist with ADLs if needed. She stopped driving several months ago due to pain and weakness in the right lower extremity. Normally, she is ambulatory without an assistive device, however, has been usinga walker for the past several months. PMFSH <Brooklyn Swanson APRN - Last Filed: 04/08/22 13:03> Vaccinated for COVID-19?: Yes Medical History (Updated 04/08/22 @ 12:51 by Brooklyn Swanson APRN) Arthritis Atrial fibrillation CAD (coronary artery disease) Diabetes GERD (gastroesophageal reflux disease) Hematoma following angiography History of cardioversion 2011 (w/RODRIGUEZ), 2015 Hyperlipidemia Hypertension Mitral valve regurgitation Surgical History (Updated 04/08/22 @ 12:51 by Brooklyn Swanson APRN) History of cardiac cath x 2 History of evacuation of hematoma History of PTCA 2005 No pertinent past surgical history Family History Father Heart attack CAD (coronary artery disease) Mother Heart attack CAD (coronary artery disease) Daughter Multiple sclerosis Social History Smoking Status: Never smoker Substance Use Type: None Review of Systems <Brooklyn Swanson APRN - Last Filed: 04/08/22 13:03> Constitutional Constitutional: Denies fever(s) and Reports weakness Eyes Eyes: Reports system reviewed and no additional complaints, except as documented ENT Ears, Nose, Mouth, and Throat: Reports system reviewed and no additional complaints, except as documented Cardiovascular Cardiovascular: Reports system reviewed and no additional complaints, except as documented Respiratory Respiratory: Reports system reviewed and no additional complaints, except as documented Gastrointestinal Gastrointestinal: Reports system reviewed and no additional complaints, except as documented Genitourinary Genitourinary: Reports system reviewed and no additional complaints, except as documented Musculoskeletal Musculoskeletal: Reports abnormal gait, Reports muscle weakness, Reports numbness, Reports radiating pain into limb and Reports tingling Integumentary/Breasts Skin/Breast: Reports system reviewed and no additional complaints, except as documented Neurologic Neurologic: Reports system reviewed and no additional complaints, except as documented Psychiatric Psychiatric: Reports system reviewed and no additional complaints, except as documented Endocrine Endocrine: Reports system reviewed and no additional complaints, except as documented Hematologic/Lymphatic Hematologic/Lymphatic: Reports system reviewed and no additional complaints, except as documented Allergic/Immunologic Allergic/Immunologic: Reports system reviewed and no additional complaints, except as documented Meds <Brooklyn Swanson APRN - Last Filed: 04/08/22 13:03> Medications and Allergies Allergies No Known Allergies Allergy (Verified 03/23/22 15:37) Home and Active Meds: Home Medications apixaban 5 mg tablet (Eliquis) 5 mg PO BID 03/09/22 [History Confirmed 04/07/22] bumetanide 1 mg tablet 0.5 - 1 mg PO DAILY PRN 03/09/22 [History Confirmed 04/07/22] ezetimibe 10 mg tablet 10 mg PO DAILY 03/09/22 [History Confirmed 04/07/22] gabapentin 100 mg capsule 100 mg PO TID 03/09/22 [History Confirmed 04/07/22] glipizide 5 mg tablet 5 mg PO BID 03/09/22 [History Confirmed 04/07/22] lisinopril 5 mg tablet 5 mg PO DAILY 03/09/22 [History Confirmed 04/07/22] metformin 1,000 mg tablet 500 mg PO BID 03/09/22 [History Confirmed 04/07/22] metoprolol succinate 100 mg tablet,extended release 24 hr 100 mg PO DAILY 03/09/22 [History Confirmed 04/07/22] rosuvastatin 5 mg tablet 5 mg PO DAILY 03/09/22 [History Confirmed 04/07/22] spironolactone 25 mg tablet 12.5 mg PO DAILY 03/09/22 [History Confirmed 04/07/22] methocarbamol 750 mg tablet 750 mg PO TID PRN 04/07/22 [History Confirmed 04/07/22] Active Medications Acetaminophen (Acetaminophen 500 Mg Tablet) 500 mg PO Q4H PRN PRN Reason: Pain Stop: 04/07/23 15:57 Al Hydrox/Mg Hydrox/Simethicone (Mag Hydrox/Al Hydrox/Simeth 30 Ml Udc) 30 ml PO Q4H PRN PRN Reason: Indigestion Stop: 04/07/23 15:57 Apixaban (Apixaban 5 Mg Tablet) 5 mg PO BID LAUREN Stop: 04/10/23 08:59 Atorvastatin Calcium (Atorvastatin 20 Mg Tablet) 20 mg PO DAILY LAUREN Stop: 04/08/23 08:59 Last Admin: 04/08/22 09:48 Dose: 20 mg Documented by: Bisacodyl (Bisacodyl 10 Mg Supp.Rect) 10 mg [place] DAILY PRN PRN Reason: Constipation Stop: 04/07/23 15:57 Bumetanide (Bumetanide 1 Mg Tablet) 0.5 - 1 mg PO DAILY PRN PRN Reason: Edema Stop: 04/07/23 16:05 Cyclobenzaprine HCl (Cyclobenzaprine 5 Mg Tablet) 5 mg PO TID PRN PRN Reason: Spasms Docusate Sodium (Docusate 100 Mg Capsule) 100 mg PO BID PRN PRN Reason: Constipation Stop: 04/07/23 15:57 Docusate Sodium (Docusate Enema 283 Mg/5 Ml Enema) 283 mg [place] DAILY PRN PRN Reason: Constipation Stop: 04/07/23 15:57 Ezetimibe (Ezetimibe 10 Mg Tablet) 10 mg PO DAILY [facility] Stop: 04/08/23 08:59 Last Admin: 04/08/22 09:48 Dose: 10 mg Documented by: Gabapentin (Gabapentin 100 Mg Capsule) 100 mg PO TID [facility] Stop: 04/07/23 21:59 Last Admin: 04/08/22 09:48 Dose: 100 mg Documented by: Glipizide (Glipizide 5 Mg Tablet) 5 mg PO BID.WITH.MEALS [facility] Stop: 04/07/23 16:59 Last Admin: 04/08/22 09:48 Dose: 5 mg Documented by: Heparin Sodium (Porcine) (Heparin 5,000 Unit/Ml Vial) 5,000 unit SUBCUT Q12HR [facility] Stop: 04/09/22 21:01 Last Admin: 04/08/22 09:49 Dose: 5,000 unit Documented by: Lactulose (Lactulose 20 Gm/30 Ml Udc) 30 gm PO DAILY PRN PRN Reason: Constipation Stop: 04/07/23 15:57 Lidocaine (Lidocaine 4% Adh..Patch) 2 patch TOPICAL DAILY [facility] Stop: 04/08/23 08:59 Last Admin: 04/08/22 09:49 Dose: 2 patch Documented by: Lisinopril (Lisinopril 5 Mg Tablet) 5 mg PO DAILY [facility] Stop: 04/08/23 08:59 Last Admin: 04/08/22 09:48 Dose: 5 mg Documented by: Metformin HCl (Metformin 500 Mg Tablet) 500 mg PO BID.WITH.MEALS [facility] Stop: 04/07/23 16:59 Last Admin: 04/08/22 09:48 Dose: 500 mg Documented by: Metoprolol Succinate (Metoprolol Succinate 100 Mg Tab.Er.24h) 100 mg PO DAILY [facility] Stop: 04/08/23 08:59 Last Admin: 04/08/22 09:48 Dose: 100 mg Documented by: Oxycodone HCl (Oxycodone Ir 5 Mg Tablet) 5 mg PO Q4HR PRN PRN Reason: Pain Sennosides (Sennosides 8.6 Mg Tablet) 2 tab PO DAILY@12 PRN PRN Reason: If no BM in 2 days Stop: 04/08/23 11:59 Sodium Chloride (Sodium Chloride 0.9 % 10 Ml Syringe) 0 ml IV-PUSH PRN PRN PRN Reason: Flush Stop: 04/07/23 15:57 Spironolactone (Spironolactone 12.5 Mg Tablet) 12.5 mg PO DAILY LAUREN Stop: 04/08/23 08:59 Last Admin: 04/08/22 09:48 Dose: 12.5 mg Documented by: Exam <Brooklyn Swanson APRN - Last Filed: 04/08/22 13:03> Physical Exam Vital Signs: Temp Pulse Resp BP Pulse Ox 98.0 F 81 16 136/77 93 L 04/08/22 05:00 04/08/22 05:00 04/08/22 05:00 04/08/22 05:00 04/08/22 05:00 Const General: cooperative, comfortable, no acute distress and well developed Nutritional Appearance: average body habitus Orientation: alert, awake and oriented x3 HEENT Head: normal to inspection Ears: hearing grossly normal bilaterally Eyes General: appearance normal, both eyes and all related structures Pupils: PERRL EOM: EOM intact bilaterally Neck Neck: full ROM, no lymphadenopathy, trachea midline, supple and nontender Chest Chest palpation & inspection: normal inspection of the chest Resp Effort & Inspection: normal respiratory effort, able to speak in complete sentences, symmetric chest movement, audible wheezes, no cough and not labored Auscultation: clear to auscultation bilaterally Cardio Jugular venous pressure: no JVD Palpation: normal PMI Heart Sounds: S1 normal and S2 normal GI Inspection: normal to inspection Palpation: soft, no hepatosplenomegaly and nontender Auscultation: normal bowel sounds General: deferred Musc Cervical Spine: cervical ROM normal Thoracic/Lumbar Spine: pain with thoraco-lumbar ROM Skin General: no rashes or lesions noted Neuro General: patient alert, patient awake and patient oriented x3 Cognition: normal cognition Speech: speech normal Motor: strength not 5/5 throughout and muscle tone abnormal right lower extremity hypotonic Other: Right lower extremity weakness throughout, plantar flexion 4/5, dorsiflexion 2/5. Paresthesia to medial right lower leg. Extrem General: abnormal ROM, capillary refill normal, no joint enlargement, no clubbing, cyanosis or edema, no pedal edema and no calf tenderness Psych Appearance: grossly normal Mood: congruent mood Affect: normal affect Speech and Movement: speech and movement normal Attitude: cooperative Thought Process: normal Thought Content: normal Insight: insight good Judgment: judgment good Results <Brooklyn Swanson APRN - Last Filed: 04/08/22 13:03> Labs Labs: Laboratory Results - last 24 hr 04/07/22 04/07/22 04/08/22 17:16 21:44 06:00 Corrected WBC 7.6 Uncorrected WBC Count 7.6 RBC 3.69 Hgb 11.2 L Hct 34.0 MCV 92.2 MCH 30.4 MCHC 33.0 RDW 14.0 Plt Count 285 MPV 8.4 Neut % (Auto) 61.2 Lymph % (Auto) 26.1 Eagle % (Auto) 9.4 Eos % (Auto) 2.7 Baso % (Auto) 0.6 Neut # (Auto) 4.7 Lymph # (Auto) 2.0 Eagle # (Auto) 0.7 Eos # (Auto) 0.2 Baso # (Auto) 0.0 Nucleated RBC % (auto) 0.1 PHA Creatinine Clear Sodium Potassium Chloride Carbon Dioxide BUN Creatinine Est GFR ( Amer) Est GFR (Non-Af Amer) Glucose POC Glucose 110 161 Calcium Total Bilirubin AST ALT Alkaline Phosphatase Total Protein Albumin Globulin Albumin/Globulin Ratio Prealbumin 04/08/22 04/08/22 06:00 06:28 Corrected WBC Uncorrected WBC Count RBC Hgb Hct MCV MCH MCHC RDW Plt Count MPV Neut % (Auto) Lymph % (Auto) Eagle % (Auto) Eos % (Auto) Baso % (Auto) Neut # (Auto) Lymph # (Auto) Eagle # (Auto) Eos # (Auto) Baso # (Auto) Nucleated RBC % (auto) PHA Creatinine Clear 57.76 Sodium 138 Potassium 4.2 Chloride 101 Carbon Dioxide 28.4 BUN 7 L Creatinine 0.72 Est GFR ( Amer) > 60 Est GFR (Non-Af Amer) > 60 Glucose 119 H POC Glucose 115 Calcium 9.2 Total Bilirubin 0.5 AST 18 ALT 17 Alkaline Phosphatase 56 Total Protein 5.6 L Albumin 2.6 L Globulin 3.0 Albumin/Globulin Ratio 0.9 Prealbumin 15.9 L Additional Results Results Comment: I reviewed clinical lab tests, radiology reports and obtained and summated medical records and have ordered follow up lab tests and imaging studies as needed for rehabilitation care. Functional Status <Brooklyn Swanson APRN - Last Filed: 04/08/22 13:03> Prior Level of Function Narrative: Previously independent Current Level of Function Narrative: Mod assist for showering, supervision for hygiene and toileting. Walks 50 feet x 2 with a wheeled walker standby assist <Kingston Gao MD - Last Filed: 04/08/22 13:06> Individualized Plan of Care Plan of Care: Individualized Overall Plan of Care: Admit Date/Time: April 07, 2022 Expected LOS: 10 days Expected Discharge Destination: Home Rehabilitation [facility]: 03 Primary Diagnosis: Lumbar stenosis status postlaminectomy with arachnoid bleb repair Patient?s/Family?s anticipated outcomes/personal goals: To have patient become more independent and to return home. Medical/ Functional Prognosis: Good Anticipated Functional Outcomes/Goals and Interventions: -Therapy Functional Outcome/Goal: Mobility/Locomotion: Patient likely to be modified independent with ambulation with assistive device. Anticipated interventions: Physician management, PT, Nutrition, Rehab Nursing - Therapy Functional Outcome/Goal: Self Care: Patient likely to be functionally modified independent for activities of daily living using assistive / adaptive equipment as needed. Anticipated interventions: Physician management, PT, OT, Nutrition, Rehab Nursing - Therapy Functional Outcome/Goal: Bladder/Bowel Management: Patient likely to be modified independent with bladder care and independent with bowel care. Anticipated interventions: Physician management, PT, OT, Nutrition, Rehab Nursing -Therapy Functional Outcome/Goal: Communication/Cognition: Patient will be able to communicate fully and be safe cognitively. Anticipated interventions: Physician management, PT, OT, Nutrition, Rehab Nursing -Therapy Functional Outcome/Goal: Patient will have adequate pain control less than 4/10 and understand how to take pain medications to achieve pain control. Anticipated interventions: Physician management, PT, OT, Nutrition, Rehab Nursing -Therapy Functional Outcome/Goal: Patient will improve endurance to be able to tolerate all daily self care activities and avocational activities. Anticipated interventions: Physician management, PT, OT, Nutrition, Rehab Nursing -Therapy Functional Outcome/Goal: Patient will understand and assimilate / integrate education regarding management of their medical conditions to maintainhealth and wellbeing. Anticipated interventions: Physician management, PT, OT, Nutrition, Rehab Nursing Required Therapy PT: 1.5 hour per day at least 5 days per week with additional therapy on as needed basis. Comments: PT to improve pt's strength, endurance, bed mobility, transfers (sit-stand), standing balance, gait quality on level surfaces and stairs, coordination and functional ADL skills. Will also work to improve pt's safety awareness during transfers and ambulation. OT: 1.5 hour per day at least 5 days per week with additional therapy on as needed basis. Comments: OT for basic ADL re-training (bathing, dressing, toileting, continence, grooming, feeding, transferring), to increase activity tolerance andfunctional mobility and to evaluate for adaptive and assistive devices. Will work to improve pt's endurance and educate pt on fall prevention and energy conservation techniques-pacing strategies and proper breathing techniques duringfunctional tasks. Other: Nutrition, Rehab nursing, Wound, P&O RATIONALE FOR IRF ADMISSION: Patient has both medical and functional complexities that require 24 hour daily monitoring and intervention from Speech And Language Clinician as well as other consulting physicians including internal medicine as well as 24 hour daily automatic lehr operator nursing - for medical safe / optimal management. Patient requires interdisciplinary therapy team rehabilitation care including OT, PT, SW, Psychology, Rehab Nursing, requires and can tolerate at least 3 hours of daily OT and PT therapy at least 5 days weekly. The following medical conditions significantly impact the rehabilitation process and are beingaddressed daily and can not be managed at home or in a lesser intense medical setting: Refer to above problem oriented plan of care Assessment/Plan <Brooklyn Swanson APRN - Last Filed: 04/08/22 13:03> (1) Diabetes: Plan: Stable on current oral medication regimen. Code(s): E11.9 - Type 2 diabetes mellitus without complications Status: Acute (2) Hyperlipidemia: Assessment/Problem Details: Stable, continue current red man Code(s): E78.5 - Hyperlipidemia, unspecified Status: Acute (3) Hypertension: Code(s): I10 - Essential (primary) hypertension Status: Acute (4) Atrial fibrillation: Assessment/Problem Details: Anticoagulated with Eliquis, which has been on hold for surgery. May resume 10 days postop, meanwhile continue heparin subcu Code(s): I48.91 - Unspecified atrial fibrillation Status: Acute (5) Foot drop, right: Assessment/Problem Details: Continue AFO brace Code(s): M21.371 - Foot drop, right foot Status: Acute (6) S/P lumbar laminectomy: Assessment/Problem Details: S/p lumbar laminectomy L2-L5 on 03/31/2022 with arachnoid bleb repair. Code(s): Z98.890 - Other specified postprocedural states Status: Acute (7) Impaired mobility and activities of daily living: Assessment/Problem Details: PT/OT to evaluate and treat. Code(s): Z74.09 - Other reduced mobility; Z78.9 - Other specified health status Status: Acute Plan 81-year-old female with longstanding history of lumbar stenosis with associated back pain and bilateral lower extremity weakness and paresthesia, s/p lumbar laminectomy at L2-L5 level with arachnoid bleb repair. * Continue heparin x3 days, then may resume home Eliquis per neurosurgery orders. * Her pain is reasonably controlled with just Tylenol. She does report occasional shooting pains down her right leg, especially the medial aspect of the lower leg. May consider increasing gabapentin if the pain becomes more severe. * Moving bowel and bladder without issues. Continue to monitor for urinary retention/or constipation * Pertinent blood work reviewed, unremarkable. Patient education Pressure ulcer prophylaxis; encourage mobilization, frequent postural changes, pressure-relief techniques DVT prophylaxis: Continue heparin SQ 3 times daily, resume home Eliquis on 04/10/2022 Encourage deep breathing exercise incentive spirometry. Monitor bladder. Toileting schedule. Continue current bladder management, with scans as needed and CIC if needed. Start bowel care program every day to obtain continence, prevent ileus. Maintain fall precautions Gait and balance retraining Functional training and self-care and home management, including activities of daily living and instrumental activities of daily living Provision of the necessary gait aids and functional adaptive equipment to enhance the patient's a functional latter-day Ensure adequate nutrition and hydration Sleep: Reports no issues Pain: Reports Tylenol provides sufficient relief. Occasional neuropathic pains in the right lower leg, may increase gabapentin as needed. Discharge planning: Home with in 7 to 10 days. I spent greater than 15 minutes for services, including [id number] encounter with the patient, discussion of the case, plan of care, and exam; and [id number] activities, such as reviewing pertinent area development consultant documentation, recent therapy notes, laboratory and radiology studies, and discussion of case with care team including physician, nursing, human services case manager, and therapists. More than 50 % of time was spent on patient/family counseling or coordination ofcare. <Kingston Gao MD - Last Filed: 04/08/22 13:06> (1) Diabetes: (2) Hyperlipidemia: (3) Hypertension: (4) Atrial fibrillation: (5) Foot drop, right: (6) S/P lumbar laminectomy: (7) Impaired mobility and activities of daily living: Plan: Patient was personally seen by me, Dr. Gao, on the day of encounter, reviewed the history and the relevant portions of the chart, including current orders, allied health and area development consultant notes, labs/imaging and performed jacobs elements of exam and I formulated the plan of care and facilitated the medical decision making and confirmed the nurse practitioner note, as above PT to improve pt's strength, endurance, bed mobility, transfers (sit-stand), standing balance, gait quality on level surfaces and stairs, coordination and functional ADL skills. Will also work to improve pt's safety awareness during transfers and ambulation. OT for basic ADL re-training (bathing, dressing, toileting, continence, grooming, feeding, transferring), to increase activity tolerance and functional mobility and to evaluate for adaptive and assistive devices. Will work to improve pt's endurance and educate pt on fall prevention and energy conservationtechniques-pacing strategies and proper breathing techniques during functional tasks. Patient education Pressure ulcer prophylaxis; encourage mobilization, frequent postural changes, pressure-relief techniques DVT prophylaxis Encourage deep breathing exercise incentive spirometry. Monitor bladder. Toileting schedule. Continue current bladder management, with scans as needed and CIC if needed. Start bowel care program every day to obtain continence, prevent ileus. Maintain fall precautions Gait and balance retraining Provision of the necessary gait aids and functional adaptive equipment to enhance the patient's a functional latter-day Encourage deep breathing exercises and incentive spirometry RD evaluation Ensure adequate nutrition and hydration Discharge planning. Documented By: Brooklyn Swanson APRN 04/08/22 1 047 Signed By: <Electronically signed by Kingston Gao MD> 04/08/22 [address] [facility] Work Phone: [phone] 537-642707-01-2022 Consult note Author Justyn Spann [facility] April 08, 2022 1:04pm Note Date/Time April 08, 2022 1:01p m [facility] [address] [place] [address] Hospitalist Consult Note Signed Patient: Saeed Sarabia MR#: [id number] : 1940 Acct:[id number] Age/Sex: 81 / F Adm Date: 2 Loc: Room: [address] [place] [address] Type : ADM IN Attending Dr: Kingston Gao MD Copies to: MD Kingston Stauffer MD Lisa J Aichholz, MODELING TEACHER-C~ HPI DATE OF CONSULTATION: 04/08/22 REQUESTING PROVIDER: Kingston Gao Consult Narrative HPI: Patient is an 81-year-old female, with known history of spinal stenosis, who underwent spinal surgical intervention at [facility]. She has presented to our facility on 05 April, complaining of severe pain in the right lower extremity, foot drop, which was attributed to her known spinal stenosis. Arrangements were made, and the patient was transferred to [facility] for surgical care. The procedure was uncomplicated, and the patient was transferred back to our inpatient rehab facility on April 07. At the time of examination, the patient is resting in her chair. She has no complaints apart from some pain in the right lower extremity. This is tolerable. She had some issues with her bowels, initially she was constipated, but now she has loose stools. Past medical history Atrial fibrillation, anticoagulated with Eliquis Diabetes mellitus type 2 Hypertension and dyslipidemia Spinal stenosis GERD CAD status post PTCI 2005 Family history as noted 10 point review of systems negative except as noted above Physical exam Patient was seen in the rehab unit. Patient appears comfortable, in no distress. Skin is normally colored, no icterus, cyanosis or edema noted. Joints are without any effusion. Abdomen is soft, benign, no rebound or rigidity. No organomegaly. Bowel sounds present. Heart very slightly irregular, no gallop rub JVD audible. Lungs are clear to auscultation, no rales, ronchi or wheezes. HENT normal Neurological: Patient is awake. Cognition is normal. Cranial nerves are intact. Power appears symmetric in all 4 extremities on a cursory exam. Gait was not assessed. Psych: affect is normal. Labs imaging reviewed Assessment and plan: #1 status post spinal decompressive surgery for stenosis at [facility]. No complications. Further postoperative care per rehab physician. DVT prophylaxis?Heparin Pain control as necessary #2 atrial fibrillation. Rate controlled. Patient is anticoagulated with apixaban. 3. CAD. Anticoagulated as noted On statin and ezetimibe. It may be worthwhile rechecking a lipid panel. I would prefer to use a higher dose of statin and discontinue ezetimibe. #4 diabetes mellitus type 2 On glipizide and metformin. Will check cost/coverage with outpatient pharmacy for a DPP 4 agent such as Januvia. Has cardiac benefits and is preferred over sulfonylureas and current standard of care. Other stable problems include Dyslipidemia?see notes above GERD Hypertension PMFSH Vaccinated for COVID-19?: Yes Medical History (Updated 04/08/22 @ 12:51 by Brooklyn Swanson APRN) Arthritis Atrial fibrillation CAD (coronary artery disease) Diabetes GERD (gastroesophageal reflux disease) Hematoma following angiography History of cardioversion 2011 (w/RODRIGUEZ), 2015 Hyperlipidemia Hypertension Mitral valve regurgitation Surgical History (Updated 04/08/22 @ 12:51 by Brooklyn Swanson APRN) History of cardiac cath x 2 History of evacuation of hematoma History of PTCA 2005 No pertinent past surgical history Family History Father Heart attack CAD (coronary artery disease) Mother Heart attack CAD (coronary artery disease) Daughter Multiple sclerosis Social History Smoking Status: Never smoker Substance Use Type: None Meds Medications and Allergies Allergies No Known Allergies Allergy (Verified 03/23/22 15:37) Home Medications apixaban 5 mg tablet (Eliquis) 5 mg PO BID 03/09/22 [History Confirmed 04/07/22] bumetanide 1 mg tablet 0.5 - 1 mg PO DAILY PRN 03/09/22 [History Confirmed 04/07/22] ezetimibe 10 mg tablet 10 mg PO DAILY 03/09/22 [History Confirmed 04/07/22] gabapentin 100 mg capsule 100 mg PO TID 03/09/22 [History Confirmed 04/07/22] glipizide 5 mg tablet 5 mg PO BID 03/09/22 [History Confirmed 04/07/22] lisinopril 5 mg tablet 5 mg PO DAILY 03/09/22 [History Confirmed 04/07/22] metformin 1,000 mg tablet 500 mg PO BID 03/09/22 [History Confirmed 04/07/22] metoprolol succinate 100 mg tablet,extended release 24 hr 100 mg PO DAILY 03/09/22 [History Confirmed 04/07/22] rosuvastatin 5 mg tablet 5 mg PO DAILY 03/09/22 [History Confirmed 04/07/22] spironolactone 25 mg tablet 12.5 mg PO DAILY 03/09/22 [History Confirmed 04/07/22] methocarbamol 750 mg tablet 750 mg PO TID PRN 04/07/22 [History Confirmed 04/07/22] Active Medications: Active Medications Generic Name Dose Route Start Last Admin Trade Name Freq PRN Reason Stop Dose Admin Acetaminophen 500 mg 04/07/22 15:58 04/08/22 12:38 Acetaminophen 500 Mg Tablet PO 04/07/23 15:57 500 mg Q4H PRN Administration Pain Al Hydrox/Mg Hydrox/Simethicone 30 ml 04/07/22 15:58 Mag Hydrox/Al Hydrox/Simeth 30 Ml Udc PO 04/07/23 15:57 Q4H PRN Indigestion Apixaban 5 mg 04/10/22 09:00 Apixaban 5 Mg Tablet PO 04/10/23 08:59 BID LAUREN Atorvastatin Calcium 20 mg 04/08/22 09:00 04/08/22 09:48 Atorvastatin 20 Mg Tablet PO 04/08/23 08:59 20 mg DAILY LAUREN Administration Bisacodyl 10 mg 04/07/22 15:58 Bisacodyl 10 Mg Supp.Rect [place] 04/07/23 15:57 DAILY PRN Constipation Bumetanide 0.5 - 1 mg 04/07/22 16:06 Bumetanide 1 Mg Tablet PO 04/07/23 16:05 DAILY PRN Edema Cyclobenzaprine HCl 5 mg 04/07/22 16:06 Cyclobenzaprine 5 Mg Tablet PO TID PRN Spasms Docusate Sodium 100 mg 04/07/22 15:58 Docusate 100 Mg Capsule PO 04/07/23 15:57 BID PRN Constipation Docusate Sodium 283 mg 04/07/22 15:58 Docusate Enema 283 Mg/5 Ml Enema [place] 04/07/23 15:57 DAILY PRN Constipation Ezetimibe 10 mg 04/08/22 09:00 04/08/22 09:48 Ezetimibe 10 Mg Tablet PO 04/08/23 08:59 10 mg DAILY LAUREN Administration Gabapentin 100 mg 04/07/22 22:00 04/08/22 09:48 Gabapentin 100 Mg Capsule PO 04/07/23 21:59 100 mg TID LAUREN Administration Glipizide 5 mg 04/07/22 17:00 04/08/22 09:48 Glipizide 5 Mg Tablet PO 04/07/23 16:59 5 mg BID.WITH.MEALS LAUREN Administration Heparin Sodium (Porcine) 5,000 unit 04/07/22 21:00 04/08/22 09:49 Heparin 5,000 Unit/Ml Vial SUBCUT 04/09/22 21:01 5,000 unit Q12HR LAUREN Administration Lactulose 30 gm 04/07/22 15:58 Lactulose 20 Gm/30 Ml Udc PO 04/07/23 15:57 DAILY PRN Constipation Lidocaine 2 patch 04/08/22 09:00 04/08/22 09:49 Lidocaine 4% Adh..Patch TOPICAL 04/08/23 08:59 2 patch DAILY LAUREN Administration Lisinopril 5 mg 04/08/22 09:00 04/08/22 09:48 Lisinopril 5 Mg Tablet PO 04/08/23 08:59 5 mg DAILY LAUREN Administration Metformin HCl 500 mg 04/07/22 17:00 04/08/22 09:48 Metformin 500 Mg Tablet PO 04/07/23 16:59 500 mg BID.WITH.MEALS LAUREN Administration Metoprolol Succinate 100 mg 04/08/22 09:00 04/08/22 09:48 Metoprolol Succinate 100 Mg Tab.Er.24h PO 04/08/23 08:59 100 mg DAILY LAUREN Administration Oxycodone HCl 5 mg 04/07/22 15:57 Oxycodone Ir 5 Mg Tablet PO Q4HR PRN Pain Sennosides 2 tab 04/08/22 12:00 Sennosides 8.6 Mg Tablet PO 04/08/23 11:59 DAILY@12 PRN If no BM in 2 days Sodium Chloride 0 ml 04/07/22 15:58 Sodium Chloride 0.9 % 10 Ml Syringe IV-PUSH 04/07/23 15:57 PRN PRN Flush Spironolactone 12.5 mg 04/08/22 09:00 04/08/22 09:48 Spironolactone 12.5 Mg Tablet PO 04/08/23 08:59 12.5 mg DAILY LAUREN Administration Exam Physical Exam Vital Signs: Temp Pulse Resp BP Pulse Ox 98.0 F 81 16 136/77 93 L 04/08/22 05:00 04/08/22 05:00 04/08/22 05:00 04/08/22 05:00 04/08/22 05:00 Results Lab Results Labs: Laboratory Results - last 72 hr 04/08/22 06:28: POC Glucose 115 04/08/22 06:00: PHA Creatinine Clear 57.76, Sodium 138, Potassium 4.2, Chloride 101, Carbon Dioxide 28.4, BUN 7 L, Creatinine 0.72, Est GFR ( Amer) > 60,Est GFR (Non-Af Amer) > 60, Glucose 119 H, Calcium 9.2, Total Bilirubin 0.5, AST18, ALT 17, Alkaline Phosphatase 56, Total Protein 5.6 L, Albumin 2.6 L, Globulin 3.0, Albumin/Globulin Ratio 0.9, Prealbumin 15.9 L 04/08/22 06:00: Corrected WBC 7.6, Uncorrected WBC Count 7.6, RBC 3.69, Hgb 11.2L, Hct 34.0, MCV 92.2, MCH 30.4, MCHC 33.0, RDW 14.0, Plt Count 285, MPV 8.4, Neut % (Auto) 61.2, Lymph % (Auto) 26.1, Eagle % (Auto) 9.4, Eos % (Auto) 2.7, Baso% (Auto) 0.6, Neut # (Auto) 4.7, Lymph # (Auto) 2.0, Eagle # (Auto) 0.7, Eos # (Auto) 0.2, Baso # (Auto) 0.0, Nucleated RBC % (auto) 0.1 04/07/22 21:44: POC Glucose 161 04/07/22 17:16: POC Glucose 110 Documented By: Justyn Spann MD 04/08/22 1257 Signed By: <Electronically signed by Justyn Spann MD> 04/08/[address] [facility] Work Phone: 1(123) 254-728206-30-2022 NoteHNO ID: [id number] Author: Kirstin Lord RN Service: Care Management Author Type: Registered Nurse Type: Care Mgt Progress Note Filed: 04/07/2022 1:04 PM Note Text: CARE MANAGEMENT DISCHARGE NOTE SERVICE DATE: 04/07/2022 SERVICE TIME: 1256 LOS: 10 days Admission Date: 03/28/2022 DISCHARGE ARRANGEMENT (list agency and phone number) Discharge Arrangement: Acute Rehabilitation Facility Provider Name: [facility] CAREGIVER ASSESSMENT: Caregiver is ready, willing and able to meet the patient's needs as recommended by the inter-professional team:: Other: See Comment (TBD) Patient's transition needs and plan for meeting these needs: Plan for AR. HANDOFF COMMUNICATION: Handoff to: Other Caregiver (Nurse to Nurse report. 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 Plan for AR. [facility] has accepted. Pt. to D/C today at 1 PM via [facility]MT-stretcher, BLS as was arranged on 04/05/2022 via [facility]. Chart envelope updated and in pt. chart rack. Report number provided and Nurse aware. D/C instructions, snapshot, and COVID-19 test results from 04/06/2022 sent via [employer]. Pt. and family ( and daughters) aware, satisfied, and agreeable to D/C plan and freedom of choice. SIGNATURE: Kirstin Lord RN PATIENT NAME: Saeed Sarabia DATE: April 07, 2022 TIME: 12:55 PM PAGER/CONTACT #: [phone]-29-[facility]22 NoteHNO ID: [id number] Author: Kirstin Lord RN Service: Care Management Author Type: Registered Nurse Type: Care Mgt Progress Note Filed: 04/06/2022 1:45 PM Note Text: CARE MANAGEMENT PROGRESS NOTE SERVICE DATE: 04/06/2022 SERVICE TIME: 134 LOS: 9 days Needs Prior to Discharge: To Be Determined;Other: See Comment (COVID-19 test, per [place] protocol) Plan for D/C tomorrow, 04/07/2022. Plan for AR. [facility] has accepted. A bed is anticipated to be available tomorrow. At this time, [facility] ambulance transport has been arranged for 1 PM , 04/07/2022. Trip was arranged via [facility] on 04/05/2022. Pt., daughter Lorie, and pt.'s made aware. All are satisfied with the plan. A COVID-19 test to be completed today, per [place] protocol. CM/SW to follow for D/C planning needs. SIGNATURE: Kirstin Lord RN PATIENT NAME: Saeed Sarabia DATE: April 06, 2022 TIME: 1:41 PM PAGER/CONTACT #: [phone]06-29-2022 NoteHNO ID: [id number] Author: Fannie Blandon PA-C Service: Neurosurgery Author Type: Physician Pediatric Allergist Type: Progress Notes Filed: 04/06/2022 11:20 AM Note Text: SERVICE DATE: 04/06/2022 SERVICE TIME: 11:20 AM NEURO SURGERY PROGRESS NOTE Account #: Data Unavailable Admission Date: 03/28/2022 Date of Evaluation: April 06, 2022 Time of Evaluation: 11:19 AM Attending: Dr. Juice Sears MD. Location: H060 [id number] Please page -: Fannie Blandon PA-C [phone] -: Afshin Tran PA-C - and weekends: [phone] or BLAYNE cellular phone repairer Subjective S/p L3-L5 laminectomy INTERVAL HPI: reports that her pain is well controlled with her current medications. She states with assistance she can now walk to the bathroom. Her states this is the best she has walked in 3 months. Overnight events noted: none. MEDICATIONS: Current Facility-Administered Medications Medication Dose Route Frequency - sodium chloride 0.9 % (flush) 3-5 mL (BD POSIFLUSH) 3-5 mL INTRAVENOUS q 12 H - NaCl 0.9% iv flush bag 20 mL INTRAVENOUS PRN - gabapentin 100 mg cap(s) (NEURONTIN) 100 mg ORAL TID - rosuvastatin 5 mg tab(s) (CRESTOR) 5 mg ORAL DAILY - metoprolol succinate ER 100 mg tab(s) (TOPROL XL) 100 mg ORAL DAILY - ezetimibe 10 mg tab(s) (ZETIA) 10 mg ORAL DAILY - polyethylene glycol 3350 17 g packet (MIRALAX, GLYCOLAX) 17 g ORAL DAILY - lisinopril 5 mg tab(s) (ZESTRIL, PRINIVIL) 5 mg ORAL/FEEDING TUBE DAILY - heparin 5,000 Units injection 5,000 Units SUBCUTANEOUS q 12 H - spironolactone 12.5 mg tab(s) (ALDACTONE) 12.5 mg ORAL DAILY - aluminum-magnesium hydroxide-simethicone 200-200-20 mg/5 mL 30 mL (MAALOX,MYLANTA,MAG-AL PLUS) 30 mL ORAL/FEEDING TUBE q 6 H PRN - sodium chloride 0.9 % (flush) 3-5 mL (BD POSIFLUSH) 3-5 mL INTRAVENOUS q 12 H - acetaminophen 650 mg tab(s) (TYLENOL) 650 mg ORAL/FEEDING TUBE q 4 H PRN - docusate sodium 100 mg cap(s) (COLACE) 100 mg ORAL BID - methocarbamol 750 mg tab(s) (ROBAXIN) 750 mg ORAL TID PRN - lidocaine 4 % 2 Patch (SALONPAS) 2 Patch TRANSDERMAL DAILY And - lidocaine patch - REMOVE OTHER AT BEDTIME And - lidocaine - VERIFY PATCH OTHER q 8 H - senna 8.6 mg tab(s) (SENOKOT) 8.6 mg ORAL/FEEDING TUBE DAILY PRN - oxyCODONE IR 5 mg tab(s) (ROXICODONE) 5 mg ORAL q 4 H PRN - glipiZIDE 5 mg tab(s) (GLUCOTROL) 5 mg ORAL BID AC - dextrose 15 gram/32 mL 15 g (TRUEPLUS) 15 g ORAL PRN Or - glucagon 1 mg injection 1 mg INTRAMUSCULAR PRN Or - dextrose 10% iv bolus 12.5 g INTRAVENOUS PRN - magnesium hydroxide 400 mg/5 mL 30 mL (MOM) 30 mL ORAL/FEEDING TUBE DAILY PRN - metFORMIN 500 mg tab(s) (GLUCOPHAGE) 500 mg ORAL BID w MEALS Objective PHYSICAL EXAM: General: A AND O x 3. Appears stated age, overweight, in no apparent distress. Psychiatric: Mood and affect: Appropriate. Skin: Color, texture, turgor normal. No rashes or lesions- large ecchymosis on inside of right upper arm. Abdomen active bowel sounds with negative tenderness to palpation, soft with mild distention Musculoskeletal: Sensory:parethesias noted on top of right dorsal foot but not present on plantar aspect Gait: Right foot drop- wide based and unsteady without assistance. Can pivot to the bedside commode with assistance. Muscle strength: UE BICEPS TRICEPS DELTS Sales Architect R 5/5 5/5 5/5 5/5 L 5/5 5/5 5/5 5/5 LE Hip Flex Knee Flex Knee Extend Plantarflex Dorsiflex EHL R 4/5 4/5 4/5 4/5 1/5 1/5 L 5/5 5/5 5/5 5/5 5/5 5/5 III, IV, EOM full XII Tongue midline, mobile Drift:negative pronator drift Speech:intact and appropriate Hemineglect:not present LABS: CBC, Coags, BMP, Mg, Phos Recent Labs 04/04/22 0645 WBC 8.74 HB 10.6* HCT 33.6* PLT 240 NA 136 K 4.2 CHLOR 98 CO2 28 BUN 12 CREAT 0.68 GLUC 183* CA 9.1 Recent Labs 04/05/22 1124 04/05/22 0735 04/04/22 1710 04/04/22 1208 PCGLUCOSE 230* 153* 188* 298* Anion Gap Date Value Ref Range Status 04/04/2022 10 9 - 18 mmol/L Final VITAL SIGNS 24 HOUR REVIEW: 04/06/22 0208 04/06/22 0400 04/06/22 0641 04/06/22 0924 BP: 136/66 148/70 (!) 130/47 Pulse: 70 76 75 Resp: 16 16 17 Temp: 36.5 ?C (97.7 ?F) 36.4 ?C (97.5 ?F) 36.6 ?C (97.9 ?F) TempSrc: Axillary Oral SpO2: 97% 98% 96% Weight: Intake/Output Summary (Last 24 hours) at 04/06/2022 1119 Last data filed at 04/06/2022 0935 Gross per 24 hour Intake 460 ml Output ? Net 460 ml IMAGING: CXR: Lines, tubes, and devices: ?None. Lungs and pleura: ?No acute focal lung consolidation is seen. No substantial pleural effusion is seen. There is no pneumothorax. Cardiomediastinal silhouette: ?Stable cardiomediastinal silhouette. ?The aortic arch is atherosclerotic. Echo: Exam indication: CAD - The left ventricle is normal in size. Left ventricular systolic function is normal. EF = 64 ? 5% (2D biplane) - The right ventricle is normal in size. Right ventricular systol (more content not included)...[facility]06[facility] NoteHNO ID: [id number] Author: Kirstin Lord RN Service: Care Management Author Type: Registered Nurse Type: Care Mgt Progress Note Filed: 04/05/2022 1:26 PM Note Text: CARE MANAGEMENT PROGRESS NOTE SERVICE DATE: 04/05/2022 SERVICE TIME: 1321 LOS: 8 days Needs Prior to Discharge: To Be Determined;Discharge Transportation;Other: See Comment (COVID-19 test, per [place] protocol) D/C ready. Plan for AR. [facility] is the facility of choice, and they are able to accept. A bed is anticipated to be available on . LIV Blandon made aware. A task was sent to the [facility] with a request for ambulance transport to be arranged for afternoon. A COVID-19 test is needed, per [place] protocol. A text was sent to LIV Blandon with a request for a COVID-19 test to be completed tomorrow, 04/06/2022. CM/SW to follow for D/C planning needs. SIGNATURE: Kirstin Lord RN PATIENT NAME: Saeed Sarabia DATE: April 05, 2022 TIME: 1:21 PM PAGER/CONTACT #: [phone] Hospital06-28-2022 NoteHNO ID: [id number] Author: Fannie Blandon PA-C Service: Neurosurgery Author Type: Physician Pediatric Allergist Type: Progress Notes Filed: 04/05/2022 12:46 PM Note Text: SERVICE DATE: 04/05/2022 SERVICE TIME: 12:46 PM NEURO SURGERY PROGRESS NOTE Account #: Data Unavailable Admission Date: 03/28/2022 Date of Evaluation: April 04, 2022 Time of Evaluation: 11:50 AM Attending: Dr. Juice Sears MD. Location: H060 [id number] Please page Mon-Mon-4p: Fannie Blandon PA-C [phone] Mon-Mon-6p: Afshin Tran PA-C Mon-Mon-7a and weekends: [phone] or BLAYNE cellular phone repairer Subjective S/p L3-L5 laminectomy INTERVAL HPI: reports that her pain is well controlled with her current medications. She states is eager to get to rehab. She would defer any bowel regimen today as she has had several bowel movements. She states that her daughter got her a new shoe that doesn't trigger her pain as much at the top of her foot. Overnight events noted: none. MEDICATIONS: Current Facility-Administered Medications Medication Dose Route Frequency - sodium chloride 0.9 % (flush) 3-5 mL (BD POSIFLUSH) 3-5 mL INTRAVENOUS q 12 H - NaCl 0.9% iv flush bag 20 mL INTRAVENOUS PRN - gabapentin 100 mg cap(s) (NEURONTIN) 100 mg ORAL TID - rosuvastatin 5 mg tab(s) (CRESTOR) 5 mg ORAL DAILY - metoprolol succinate ER 100 mg tab(s) (TOPROL XL) 100 mg ORAL DAILY - ezetimibe 10 mg tab(s) (ZETIA) 10 mg ORAL DAILY - polyethylene glycol 3350 17 g packet (MIRALAX, GLYCOLAX) 17 g ORAL DAILY - lisinopril 5 mg tab(s) (ZESTRIL, PRINIVIL) 5 mg ORAL/FEEDING TUBE DAILY - heparin 5,000 Units injection 5,000 Units SUBCUTANEOUS q 12 H - spironolactone 12.5 mg tab(s) (ALDACTONE) 12.5 mg ORAL DAILY - aluminum-magnesium hydroxide-simethicone 200-200-20 mg/5 mL 30 mL (MAALOX,MYLANTA,MAG-AL PLUS) 30 mL ORAL/FEEDING TUBE q 6 H PRN - sodium chloride 0.9 % (flush) 3-5 mL (BD POSIFLUSH) 3-5 mL INTRAVENOUS q 12 H - acetaminophen 650 mg tab(s) (TYLENOL) 650 mg ORAL/FEEDING TUBE q 4 H PRN - docusate sodium 100 mg cap(s) (COLACE) 100 mg ORAL BID - methocarbamol 750 mg tab(s) (ROBAXIN) 750 mg ORAL TID PRN - lidocaine 4 % 2 Patch (SALONPAS) 2 Patch TRANSDERMAL DAILY And - lidocaine patch - REMOVE OTHER AT BEDTIME And - lidocaine - VERIFY PATCH OTHER q 8 H - metFORMIN 500 mg tab(s) (GLUCOPHAGE) 500 mg ORAL DAILY WITH BREAKFAST - senna 8.6 mg tab(s) (SENOKOT) 8.6 mg ORAL/FEEDING TUBE DAILY PRN - oxyCODONE IR 5 mg tab(s) (ROXICODONE) 5 mg ORAL q 4 H PRN - glipiZIDE 5 mg tab(s) (GLUCOTROL) 5 mg ORAL BID AC - dextrose 15 gram/32 mL 15 g (TRUEPLUS) 15 g ORAL PRN Or - glucagon 1 mg injection 1 mg INTRAMUSCULAR PRN Or - dextrose 10% iv bolus 12.5 g INTRAVENOUS PRN - magnesium hydroxide 400 mg/5 mL 30 mL (MOM) 30 mL ORAL/FEEDING TUBE DAILY PRN Objective PHYSICAL EXAM: General: A AND O x 3. Appears stated age, overweight, in no apparent distress. Psychiatric: Mood and affect: Appropriate. Skin: Color, texture, turgor normal. No rashes or lesions- large ecchymosis on inside of right upper arm. Abdomen active bowel sounds with negative tenderness to palpation, soft with mild distention Musculoskeletal: Sensory:parethesias noted on top of right dorsal foot but not present on plantar aspect Gait: Right foot drop- wide based and unsteady without assistance. Can pivot to the bedside commode with assistance. Muscle strength: UE BICEPS TRICEPS DELTS Sales Architect R / 5/5 5/ 5/5 L 5/ 5/5 5/5 5/ LE Hip Flex Knee Flex Knee Extend Plantarflex Dorsiflex EHL R 01/11/02 09/02 09/02 06/02 06/5 L /02 10/02 10/02 10/02/10 5 III, IV, EOM full XII Tongue midline, mobile Drift:negative pronator drift Speech:intact and appropriate Hemineglect:not present LABS: CBC, Coags, BMP, Mg, Phos Recent Labs 04/04/22 0645 04/03/22 0518 WBC 8.74 10.11 HB 10.6* 10.3* HCT 33.6* 31.8* PLT 240 202 NA 136 134* K 4.2 4.2 CHLOR 98 97 CO2 28 28 BUN 12 14 CREAT 0.68 0.80 GLUC 183* 211* CA 9.1 8.9 Recent Labs 04/05/22 1124 04/05/22 0735 04/04/22 1710 04/04/22 1208 PCGLUCOSE 230* 153* 188* 298* Anion Gap Date Value Ref Range Status 04/04/2022 10 9 - 18 mmol/L Final VITAL SIGNS 24 HOUR REVIEW: 04/05/22 0231 04/05/22 0400 04/05/22 0601 04/05/22 1024 BP: 120/71 145/55 120/56 Pulse: 66 70 60 Resp: 16 16 16 17 Temp: 36.9 ?C (98.4 ?F) 36.7 ?C (98.1 ?F) 36.8 ?C (98.2 ?F) TempSrc: Axillary Oral Oral SpO2: 95% 95% 97% Weight: Intake/Output Summary (Last 24 hours) at 04/05/2022 1244 Last data filed at 04/05/2022 0900 Gross per 24 hour Intake 860 ml Output ? Net 860 ml IMAGING: CXR: Lines, tubes, and devices: ?None. Lungs and pleura: ?No acute focal lung consolidation is seen. No substantial pleural effusion is seen. There is no pneumothorax. Cardiomediastinal silhouette: ?Stable cardiomediastinal silhouette. ?The aortic arch is atherosclerotic. Echo: Exam indication (more content not included)...[facility] 04-04-2022 NoteHNO ID: [id number] Author: Kirstin Lord RN Service: Care Management Author Type: Registered Nurse Type: Care Mgt Progress Note Filed: 04/04/2022 3:35 PM Note Text: CARE MANAGEMENT PROGRESS NOTE SERVICE DATE: 04/04/2022 SERVICE TIME: 1522 LOS: 7 days Needs Prior to Discharge: To Be Determined;Patient/Family;Discharge Transportation;Accepting Facility;Bed Availability D/C ready. Plan for AR. A referral had been sent to [facility] and [facility] on 04/01/2022. [facility] is the facility of choice. No bed is available at this time. Facility is uncertain when a bed will be available. [facility] able to accept. Pt., pt.'s , and pt.'s daughter aware of the above. Family/pt. still very much interested in placement at [facility] due to proximity to pt.'s home. Family is requesting for this CM to follow up tomorrow with [facility] in the AM about bed availability. In the meantime, daughter is requesting that a referral be sent to [facility]. Referral sent. Await response. Pt. and family aware that if a bed is not available tomorrow at [facility] and [facility] can not accept, plan will be for admit to [facility]. COVID-19 test sent per [facility] protocol. CM/SW to follow for D/C planning needs. SIGNATURE: Kirstin Lord RN PATIENT NAME: Saeed Sarabia DATE: April 04, 2022 TIME: 3:23 PM PAGER/CONTACT #: [phone] Hospital06-27-2022 NoteHNO ID: [id number] Author: Fannie Blandon PA-C Service: Neurosurgery Author Type: Physician Pediatric Allergist Type: Progress Notes Filed: 04/04/2022 11:53 AM Note Text: SERVICE DATE: 04/04/2022 SERVICE TIME: 11:53 AM NEURO SURGERY PROGRESS NOTE Account #: Data Unavailable Admission Date: 03/28/2022 Date of Evaluation: April 04, 2022 Time of Evaluation: 11:50 AM Attending: Dr. Juice Sears MD. [address] Please page -p: Fannie Blandon PA-C [phone] Mon-Mon-6p: Afshin Tran PA-C Mon-Mon- and weekends: [phone] or BLAYNE cellular phone repairer Subjective S/p L3-L5 laminectomy INTERVAL HPI: reports that her pain is well controlled with her current medications. She states is eager to get to rehab. She would defer any bowel regimen today as she has had several bowel movements. Overnight events noted: none. MEDICATIONS: Current Facility-Administered Medications Medication Dose Route Frequency - sodium chloride 0.9 % (flush) 3-5 mL (BD POSIFLUSH) 3-5 mL INTRAVENOUS q 12 H - NaCl 0.9% iv flush bag 20 mL INTRAVENOUS PRN - gabapentin 100 mg cap(s) (NEURONTIN) 100 mg ORAL TID - rosuvastatin 5 mg tab(s) (CRESTOR) 5 mg ORAL DAILY - metoprolol succinate ER 100 mg tab(s) (TOPROL XL) 100 mg ORAL DAILY - ezetimibe 10 mg tab(s) (ZETIA) 10 mg ORAL DAILY - polyethylene glycol 3350 17 g packet (MIRALAX, GLYCOLAX) 17 g ORAL DAILY - magnesium hydroxide 400 mg/5 mL 30 mL (MOM) 30 mL ORAL/FEEDING TUBE DAILY - lisinopril 5 mg tab(s) (ZESTRIL, PRINIVIL) 5 mg ORAL/FEEDING TUBE DAILY - heparin 5,000 Units injection 5,000 Units SUBCUTANEOUS q 12 H - spironolactone 12.5 mg tab(s) (ALDACTONE) 12.5 mg ORAL DAILY - aluminum-magnesium hydroxide-simethicone 200-200-20 mg/5 mL 30 mL (MAALOX,MYLANTA,MAG-AL PLUS) 30 mL ORAL/FEEDING TUBE q 6 H PRN - sodium chloride 0.9 % (flush) 3-5 mL (BD POSIFLUSH) 3-5 mL INTRAVENOUS q 12 H - acetaminophen 650 mg tab(s) (TYLENOL) 650 mg ORAL/FEEDING TUBE q 4 H PRN - docusate sodium 100 mg cap(s) (COLACE) 100 mg ORAL BID - HYDROmorphone (PF) 0.2 mg injection (DILAUDID) 0.2 mg INTRAVENOUS q 4 H PRN - ondansetron (PF) 4 mg injection (ZOFRAN) 4 mg INTRAVENOUS q 6 H PRN - oxyCODONE IR 5-10 mg tab(s) (ROXICODONE) 5-10 mg ORAL q 4 H PRN - methocarbamol 750 mg tab(s) (ROBAXIN) 750 mg ORAL TID PRN - lidocaine 4 % 2 Patch (SALONPAS) 2 Patch TRANSDERMAL DAILY And - lidocaine patch - REMOVE OTHER AT BEDTIME And - lidocaine - VERIFY PATCH OTHER q 8 H - lactulose 20 g CUP (DUPHALAC, CONSTULOSE) 20 g ORAL/FEEDING TUBE TID - senna 17.2 mg tab(s) (SENOKOT) 17.2 mg ORAL/FEEDING TUBE BID - metFORMIN 500 mg tab(s) (GLUCOPHAGE) 500 mg ORAL DAILY WITH BREAKFAST Objective PHYSICAL EXAM: General: A AND O x 3. Appears stated age, overweight, in no apparent distress. Psychiatric: Mood and affect: Appropriate. Skin: Color, texture, turgor normal. No rashes or lesions- large ecchymosis on inside of right upper arm. Abdomen active bowel sounds with negative tenderness to palpation, soft with mild distention Musculoskeletal: Sensory:parethesias noted on top of right dorsal foot but not present on plantar aspect Gait: Right foot drop- wide based and unsteady without assistance. Can pivot to the bedside commode with assistance. Muscle strength: UE BICEPS TRICEPS DELTS Sales Architect R 5/5 5/5 5/5 5/5 L 5/5 5/5 5/5 5/5 LE Hip Flex Knee Flex Knee Extend Plantarflex Dorsiflex EHL R 4/5 4/5 4/5 4/5 1/5 2/5 L 5/5 5/5 5/5 5/5 5/5 5/5 III, IV, EOM full XII Tongue midline, mobile Drift:negative pronator drift Speech:intact and appropriate Hemineglect:not present LABS: CBC, Coags, BMP, Mg, Phos Recent Labs 04/04/22 0645 04/03/22 0518 04/02/22 1047 04/02/22 0011 WBC 8.74 10.11 11.18* -- HB 10.6* 10.3* 10.7* -- HCT 33.6* 31.8* 33.4* -- PLT 240 202 210 -- NA -- 134* 133* -- K -- 4.2 4.0 -- CHLOR -- 97 98 -- CO2 -- 28 26 -- BUN -- 14 13 -- CREAT -- 0.80 0.69 -- GLUC -- 211* 287* -- CA -- 8.9 9.2 -- MG -- -- -- 2.1 Anion Gap Date Value Ref Range Status 04/03/2022 9 9 - 18 mmol/L Final VITAL SIGNS 24 HOUR REVIEW: 04/03/22 2136 04/04/22 0118 04/04/22 0612 04/04/22 0829 BP: 138/53 134/72 148/65 132/60 Pulse: 68 77 70 62 Resp: 18 20 16 18 Temp: 37.1 ?C (98.8 ?F) 36.9 ?C (98.4 ?F) 36.7 ?C (98.1 ?F) 37 ?C (98.6 ?F) TempSrc: Oral Oral Oral Oral SpO2: 96% 92% 95% 96% Weight: Intake/Output Summary (Last 24 hours) at 04/04/2022 1150 Last data filed at 04/04/2022 0900 Gross per 24 hour Intake 660 ml Output ? Net 660 ml IMAGING: CXR: Lines, tubes, and devices: ?None. Lungs and pleura: ?No acute focal lung consolidation is seen. No substantial pleural effusion is seen. There is no pneumothorax. Cardiomediastinal silhouette: ?Stable cardiomediastinal silhouette. ?The aortic arch is atherosclerotic. Echo: Exam indication: CAD - The left ventricle is normal in size. Left ventri (more content not included)...[facility]06-26-2022 NoteHNO ID: [id number] Author: Fannie Blandon PA-C Service: Neurosurgery Author Type: Physician Pediatric Allergist Type: Progress Notes Filed: 04/03/2022 5:16 PM Note Text: SERVICE DATE: 04/03/2022 SERVICE TIME: 5:16 PM NEURO SURGERY PROGRESS NOTE Account #: Data Unavailable Admission Date: 03/28/2022 Date of Evaluation: April 03, 2022 Time of Evaluation: 5:12 PM Attending: Dr. Juice Sears MD. [id number] Please page -p: Fannie Blandon PA-C [phone] Mon-Mon-6p: Afshin Tran PA-C Mon-Mon- and weekends: [phone] or BLAYNE cellular phone repairer Subjective S/p L3-L5 laminectomy INTERVAL HPI: reports that she was able to have a bowel movement yesterday and feels much better. She states that her right dorsal foot pain is better but does worsen when pressure is applied to it such as when placing on her shoes. She states that overall her pain is controlled but that she hasn't had much improved yet with the dorsiflexion of her right ankle. 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 Overnight events noted: none. MEDICATIONS: Current Facility-Administered Medications Medication Dose Route Frequency - sodium chloride 0.9 % (flush) 3-5 mL (BD POSIFLUSH) 3-5 mL INTRAVENOUS q 12 H - NaCl 0.9% iv flush bag 20 mL INTRAVENOUS PRN - gabapentin 100 mg cap(s) (NEURONTIN) 100 mg ORAL TID - rosuvastatin 5 mg tab(s) (CRESTOR) 5 mg ORAL DAILY - metoprolol succinate ER 100 mg tab(s) (TOPROL XL) 100 mg ORAL DAILY - ezetimibe 10 mg tab(s) (ZETIA) 10 mg ORAL DAILY - polyethylene glycol 3350 17 g packet (MIRALAX, GLYCOLAX) 17 g ORAL DAILY - magnesium hydroxide 400 mg/5 mL 30 mL (MOM) 30 mL ORAL/FEEDING TUBE DAILY - lisinopril 5 mg tab(s) (ZESTRIL, PRINIVIL) 5 mg ORAL/FEEDING TUBE DAILY - heparin 5,000 Units injection 5,000 Units SUBCUTANEOUS q 12 H - spironolactone 12.5 mg tab(s) (ALDACTONE) 12.5 mg ORAL DAILY - aluminum-magnesium hydroxide-simethicone 200-200-20 mg/5 mL 30 mL (MAALOX,MYLANTA,MAG-AL PLUS) 30 mL ORAL/FEEDING TUBE q 6 H PRN - sodium chloride 0.9 % (flush) 3-5 mL (BD POSIFLUSH) 3-5 mL INTRAVENOUS q 12 H - acetaminophen 650 mg tab(s) (TYLENOL) 650 mg ORAL/FEEDING TUBE q 4 H PRN - docusate sodium 100 mg cap(s) (COLACE) 100 mg ORAL BID - HYDROmorphone (PF) 0.2 mg injection (DILAUDID) 0.2 mg INTRAVENOUS q 4 H PRN - ondansetron (PF) 4 mg injection (ZOFRAN) 4 mg INTRAVENOUS q 6 H PRN - oxyCODONE IR 5-10 mg tab(s) (ROXICODONE) 5-10 mg ORAL q 4 H PRN - methocarbamol 750 mg tab(s) (ROBAXIN) 750 mg ORAL TID PRN - lidocaine 4 % 2 Patch (SALONPAS) 2 Patch TRANSDERMAL DAILY And - lidocaine patch - REMOVE OTHER AT BEDTIME And - lidocaine - VERIFY PATCH OTHER q 8 H - lactulose 20 g CUP (DUPHALAC, CONSTULOSE) 20 g ORAL/FEEDING TUBE TID - senna 17.2 mg tab(s) (SENOKOT) 17.2 mg ORAL/FEEDING TUBE BID Objective PHYSICAL EXAM: General: A AND O x 3. Appears stated age, overweight, in no apparent distress. Psychiatric: Mood and affect: Appropriate. Skin: Color, texture, turgor normal. No rashes or lesions- large ecchymosis on inside of right upper arm. Abdomen active bowel sounds with negative tenderness to palpation, soft with mild distention Musculoskeletal: Sensory:parethesias noted on top of right dorsal foot but not present on plantar aspect Gait: Right foot drop- wide based and unsteady without assistance. Can pivot to the bedside commode with assistance. Muscle strength: UE BICEPS TRICEPS DELTS Sales Architect R 5/5 5/5 5/5 5/5 L 5/5 5/5 5/5 5/5 LE Hip Flex Knee Flex Knee Extend Plantarflex Dorsiflex EHL R 4/5 4/5 4/5 4/5 1/5 2/5 L 5/5 5/5 5/5 5/5 5/5 5/5 III, IV, EOM full XII Tongue midline, mobile Drift:negative pronator drift Speech:intact and appropriate Hemineglect:not present LABS: CBC, Coags, BMP, Mg, Phos Recent Labs 04/03/22 0518 04/02/22 1047 04/02/22 0011 04/01/22 0839 WBC 10.11 11.18* -- 10.32 HB 10.3* 10.7* -- 12.0 HCT 31.8* 33.4* -- 36.7 PLT 202 210 -- 238 NA 134* 133* -- 139 K 4.2 4.0 -- 4.6 CHLOR 97 98 -- 103 CO2 28 26 -- 25 BUN 14 13 -- 18 CREAT 0.80 0.69 -- 0.70 GLUC 211* 287* -- 232* CA 8.9 9.2 -- 8.8 MG -- -- 2.1 -- Anion Gap Date Value Ref Range Status 04/03/2022 9 9 - 18 mmol/L Final VITAL SIGNS 24 HOUR REVIEW: 04/03/22 0058 04/03/22 0542 04/03/22 0928 04/03/22 1343 BP: 135/68 131/68 141/67 (!) 120/46 Pulse: 77 63 62 68 Resp: 20 20 17 16 Temp: 36.8 ?C (98.2 ?F) 36.5 ?C (97.7 ?F) 36.7 ?C (98.1 ?F) 36.8 ?C (98.2 ?F) TempSrc: Oral Oral Axillary Oral SpO2: 93% 94% 97% 96% Weight: Intake/Output Summary (Last 24 hours) at 04/03/2022 1712 Last data filed at 04/03/2022 0300 Gross per 24 hour Intake 400 ml Output 390 ml Net 10 ml IMAGING: CXR: Lines, tubes, and devices: ?None. Lungs and pleura: ?No acute focal lung consolidation is seen. No substantial pleural effusion is seen. There is no pneumothorax. Cardiomediastinal silhouette (more content not included)...[facility]06-25-2022 NoteHNO ID: [id number] Author: Fannie Blandon PA-C Service: Neurosurgery Author Type: Physician Pediatric Allergist Type: Progress Notes Filed: 04/02/2022 1:07 PM Note Text: SERVICE DATE: 04/02/2022 SERVICE TIME: 1:07 PM NEURO SURGERY PROGRESS NOTE Account #: Data Unavailable Admission Date: 03/28/2022 Date of Evaluation: March 29, 2022 Time of Evaluation: 12:45 PM Attending: Dr. Juice Sears MD. [address] Please page -p: Fannie Blandon PA-C [phone] -6p: Courtney Deshpande [facility] [phone] - and weekends: [phone] or BLAYNE cellular phone repairer Subjective S/p L3-L5 laminectomy INTERVAL HPI: reports that she just started experiencing severe pain on the top of her right foot. She states that it seems to be worse than before surgery. She states that this just occurred and that after surgery her ankle /foot pain has resolved. Her foot was also crooked in the bed against the end of the bed. I was able to straighten and we discussed adding an anti-inflammatory. She also reported that she still has significant constipation and is willing to try an enema today. Overnight events noted: none. MEDICATIONS: Current Facility-Administered Medications Medication Dose Route Frequency - sodium chloride 0.9 % (flush) 3-5 mL (BD POSIFLUSH) 3-5 mL INTRAVENOUS q 12 H - NaCl 0.9% iv flush bag 20 mL INTRAVENOUS PRN - gabapentin 100 mg cap(s) (NEURONTIN) 100 mg ORAL TID - rosuvastatin 5 mg tab(s) (CRESTOR) 5 mg ORAL DAILY - metoprolol succinate ER 100 mg tab(s) (TOPROL XL) 100 mg ORAL DAILY - ezetimibe 10 mg tab(s) (ZETIA) 10 mg ORAL DAILY - polyethylene glycol 3350 17 g packet (MIRALAX, GLYCOLAX) 17 g ORAL DAILY - magnesium hydroxide 400 mg/5 mL 30 mL (MOM) 30 mL ORAL/FEEDING TUBE DAILY - [MAR Hold due to Transfer] sodium chloride 0.9 % (flush) 2-10 mL (BD POSIFLUSH) 2-10 mL INTRAVENOUS DIRECTED PRN And - [MAR Hold due to Transfer] perflutren lipid microspheres 1.1 mg/mL 1.3 mL injection (DEFINITY) 1.3 mL INTRAVENOUS DIRECTED PRN - lisinopril 5 mg tab(s) (ZESTRIL, PRINIVIL) 5 mg ORAL/FEEDING TUBE DAILY - heparin 5,000 Units injection 5,000 Units SUBCUTANEOUS q 12 H - spironolactone 12.5 mg tab(s) (ALDACTONE) 12.5 mg ORAL DAILY - aluminum-magnesium hydroxide-simethicone 200-200-20 mg/5 mL 30 mL (MAALOX,MYLANTA,MAG-AL PLUS) 30 mL ORAL/FEEDING TUBE q 6 H PRN - sodium chloride 0.9 % (flush) 3-5 mL (BD POSIFLUSH) 3-5 mL INTRAVENOUS q 12 H - acetaminophen 650 mg tab(s) (TYLENOL) 650 mg ORAL/FEEDING TUBE q 4 H PRN - docusate sodium 100 mg cap(s) (COLACE) 100 mg ORAL BID - senna 8.6 mg tab(s) (SENOKOT) 8.6 mg ORAL/FEEDING TUBE BID - HYDROmorphone (PF) 0.2 mg injection (DILAUDID) 0.2 mg INTRAVENOUS q 4 H PRN - ondansetron (PF) 4 mg injection (ZOFRAN) 4 mg INTRAVENOUS q 6 H PRN - oxyCODONE IR 5-10 mg tab(s) (ROXICODONE) 5-10 mg ORAL q 4 H PRN - methocarbamol 750 mg tab(s) (ROBAXIN) 750 mg ORAL TID PRN - lidocaine 4 % 2 Patch (SALONPAS) 2 Patch TRANSDERMAL DAILY And - lidocaine patch - REMOVE OTHER AT BEDTIME And - lidocaine - VERIFY PATCH OTHER q 8 H - keTORolac 15 mg injection (TORADOL) 15 mg INTRAVENOUS q 6 H Objective PHYSICAL EXAM: General: A AND O x 3. Appears stated age, overweight, in no apparent distress. Psychiatric: Mood and affect: Appropriate. Skin: Color, texture, turgor normal. No rashes or lesions Abdomen hypoactive bowel sounds with negative tenderness to palpation, soft with mild distention Musculoskeletal: Sensory:parethesias noted on top of right dorsal foot but not present on plantar aspect Gait: No assessed Muscle strength: UE BICEPS TRICEPS DELTS Sales Architect R 5/5 5/5 5/5 5/5 L 5/5 5/5 5/5 5/5 LE Hip Flex Knee Flex Knee Extend Plantarflex Dorsiflex EHL R 4/5 4/5 4/5 4/5 1/5 2/5 L 5/5 5/5 5/5 5/5 5/5 5/5 III, IV, EOM full XII Tongue midline, mobile Drift:negative pronator drift Speech:intact and appropriate Hemineglect:not present LABS: CBC, Coags, BMP, Mg, Phos Recent Labs 04/02/22 1047 04/02/22 0011 04/01/22 0839 WBC 11.18* -- 10.32 HB 10.7* -- 12.0 HCT 33.4* -- 36.7 PLT 210 -- 238 NA -- -- 139 K -- -- 4.6 CHLOR -- -- 103 CO2 -- -- 25 BUN -- -- 18 CREAT -- -- 0.70 GLUC -- -- 232* CA -- -- 8.8 MG -- 2.1 -- Anion Gap Date Value Ref Range Status 04/01/2022 11 9 - 18 mmol/L Final VITAL SIGNS 24 HOUR REVIEW: 04/01/22 2124 04/02/22 0102 04/02/22 0534 04/02/22 0955 BP: 150/68 128/61 120/53 116/56 Pulse: 72 77 72 74 Resp: 20 20 20 17 Temp: 37.2 ?C (99 ?F) 36.5 ?C (97.7 ?F) 36.7 ?C (98.1 ?F) 36.6 ?C (97.9 ?F) TempSrc: Oral Oral Oral Oral SpO2: 95% 92% 94% 92% Weight: Intake/Output Summary (Last 24 hours) at 04/02/2022 1300 Last data filed at 04/02/2022 0200 Gross per 24 hour Intake 220 ml Output ? Net 220 ml IMAGING: CXR: Lines, tubes, and devices: ?None. Lungs and pleura: ?No acute focal lung consolidation is seen. No (more content not included)...[facility]06-24-2022 NoteHNO ID: [id number] Author: Kirstin Lord RN Service: Care Management Author Type: Registered Nurse Type: Care Mgt Initial Assessment Filed: 04/01/2022 3:22 PM Note Text: CARE MANAGEMENT: ASSESSMENT AND DISCHARGE PLAN SERVICE DATE: April 01, 2022 SERVICE TIME: 1513 PRIMARY CARE PHYSICIAN: No primary care provider on file. Phone: None Primary Contact: Extended Emergency Contact Information Primary Emergency Contact: CornellSammy Mobile Relation: Spouse ADMISSION STATUS: Inpatient Insurance Provider: MEDICARE A AND B NEEDS PRIOR TO DISCHARGE Needs Prior to Discharge: To Be Determined;Accepting Facility;Patient/Family;Discharge Transportation;Other: See Comment (Updated PT/OT notes Monday; PMANDR evaluation; possible COVID-19 test, per [facility] protocol) POTENTIAL TRANSITION PLANS Rehab Facility Based on clinical judgement, Care Management will address the following needs: Functional ADVANCE DIRECTIVES Current Advance Directive: None Neurology Hospitalist Attempted to Assist with AD Completion: Yes Action: Patient Unwilling MS/BEHAVIOR Baseline Mental Status Prior to this Illness what was the patient's Baseline Mental Status?: Alert AND Oriented Prior to this illness, has anyone described the patient having any of the following behaviors?: Not Applicable Relationship of the informant to the patient:: Self READMISSION Last Discharge Date: N/A Is this Within the Past 30 days? 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 Use of any community resources?: No Does the patient have a stable and supportive living arrangement and home setting?: Yes Situation: Pt. lives with in a one story home. Are there any potential risks or gaps identified by risk/functional/fall,etc. scores in the EMR?: Yes Situation: High fall risk; PT/OT 6 clicks score is 17. Recommendation: Acute Rehab Any potential risks related to substance abuse and/or behavioral health?: No Based on clinical judgement, Care Management will address the following needs: Functional CAREGIVER ASSESSMENT Caregiver is ready, willing and able to meet the patient's needs as recommended by the inter-professional team:: Other: See Comment (TBD) Patient's transition needs and plan for meeting these needs: Plan for [facility]. FUNCTIONAL How do you manage to accomplish the following: Independent: Ambulation;Bathe/Shower;Dress;Meals/Meal Prep;Going to the bathroom;Medication Management Dependent: Transportation to appointments/community (Pt. is able to drive, but has not for the last month.) Services/Needs//Equipment Does Patient Currently Receive Any Community Services or Home Care?: None Equipment Prior to Admission: Cane;Bedside Commode;Walker;Tub bench/chair;Wheelchair;Rollator Scooter;Glucometer;Hospital Bed;Other: See Comment (Grab bars) Has the Patient Been in a Care Home Facility in the Past 30 days?: No No medical discharge barriers identified at this time. No social discharge barriers identified at this time. No behavioral/cognitive discharge barriers identified at this time. FREEDOM OF CHOICE EXPLAINED: [place] of Choice Given: Yes Level of Care Discussed: Inpatient Rehab Facility Financial Disclosure Provided: Yes Financial Disclosure Comments: [facility] list Provider List: Rehab Facility Provider list within the patient's requested geographic area shared with the patient/family: Yes within: Other: See Comment (50 miles) of zip code: [address] Quality and resource use metrics shared with the patient that are relevant to the patient's goals of care and treatment preferences:: Yes Metrics: Incidence of Major Falls;Functional Status;Discharge to Community;Potentially Preventable 30-day Post Discharge Readmission Rates Are you interested in bedside delivery of your medications? No D/C likely early next week. PT/OT recommending [facility]; PMANDR pending. CM spoke with pt. about D/C plan and recommendation for [facility], Pt. in agreement. A list of [facility] facilities was provided for review. A referral was sent to [facility] and [facility] [place] as requested by pt.. Await response. 24 hour notice may be required for the arrangement of ambulance transport. An OOP, up front cost may be required for ambulance transport. Pt. was made aware of this and also aware that insurance may not cover the cost of ambulance (more content not included)...[facility]06-24-2022 NoteHNO ID: [id number] Author: Padmini Trevizo MD Service: Neurosurgery Author Type: Resident Type: Progress Notes Filed: 04/01/2022 7:04 AM Note Text: Neurosurgery Inpatient Progress Note Interval HPI: POD1 s/p L2-5 laminectomies w arachnoid bleb repaired with tachosil Objective: 03/31/22223004/01/2220004/01/2252104/01/22522 BP: 149/70 130/70 140/70 Pulse: 81 98 95 98 Resp: 18 16 16 Temp: 36.4 ?C (97.5 ?F) 36.4 ?C (97.5 ?F) 36.3 ?C (97.3 ?F) TempSrc: Oral Oral Oral SpO2: 100% 99% 98% 97% Weight: EXAM: NAD, AAO x 3 CN grossly intact Strength: L: Delt 5/5, Bi 5/5, Tri 5/5, Sales Architect 5/5, Intrins 5/5 R: Delt 5/5, Bi 5/5, Tri 5/5, Sales Architect 5/5, Intrins 5/5 L: HF 5/5, KE 5/5, DF 5/5, EHL 5/5, PF 5/5 R: HF 4+/5, KE 4+/5, DF 0/5, EHL 1/5, PF 0/5 R foot numb to mid silva Drain output bloody A/P: PMH of RA, DM II, HTN, HLD, CAD s/p stenting, Aifb on Eliquis (last 03/24) presenting with lumbar spinal stenosis with R foot weakness now s/p 03/31/22 L2-5 laminectomies w arachnoid bleb repaired with tachosil RNF Periop abx x24 hrs Drain to half suction, continue today Slow liberalization of HOB today Pain control w PO meds PT OT if tolerating HOB elevation SCDs no SQH until POD2 Derm c/s for mole on R breast Padmini Trevizo MD Neurosurgery, PGY-4 Pager: [phone] April 01, 2022 Neurosurgery cellular phone repairer: [phone] Please page [phone] on weekends and after 6pmNew[facility]06[facility] NoteHNO ID: [id number] Author: Padmini Trevizo MD Service: Neurosurgery Author Type: Resident Type: Progress Notes Filed: 03/31/2022 8:11 PM Note Text: Neurosurgery POC Note Interval HPI: S/p L2-5 laminectomies w arachnoid bleb repaired with tachosil Objective: 03/30/224 03/30/22204503/31/22 0603/31/22 0958 BP: 139/77 153/99 146/77 (!) 140/47 Pulse: 69 76 70 64 Resp: Temp: 36.3 ?C (97.3 ?F) 36.6 ?C (97.9 ?F) 36.5 ?C (97.7 ?F) 36.9 ?C (98.4 ?F) TempSrc: Oral Oral Oral Axillary SpO2: 96% 95% 98% 97% Weight: EXAM: NAD, AAO x 2 CN grossly intact Strength: L: Delt 5/5, Bi 5/5, Tri 5/5, Sales Architect 5/5, Intrins 5/5 R: Delt 5/5, Bi 5/5, Tri 5/5, Sales Architect 5/5, Intrins 5/5 L: HF 5/5, KE 5/5, DF 5/5, EHL 5/5, PF 5/5 R: HF 4+/5, KE 4+/5, DF 0/5, EHL 1/5, PF 0/5 R foot numb to mid silva A/P: PMH of RA, DM II, HTN, HLD, CAD s/p stenting, Aifb on Eliquis (last 03/24) presenting with lumbar spinal stenosis with R foot weakness now s/p 03/31/22 L2-5 laminectomies w arachnoid bleb repaired with tachosil PACU to RNF Periop abx x24 hrs Drain to half suction HOB flat overnight Pain control w PO meds PT OT ADAT SCDs no SQH until POD2 Derm c/s for mole on R breast Padmini Trevizo MD Neurosurgery, PGY-4 Pager # [phone] March 31, 2022 Please page [phone] after 6 PM and on weekendOhioHealth O'[facility] NoteHNO ID: [id number] Author: Nawaf Caballero APRN.GEOGRAPHY TEACHER Service: ? Author Type: Nurse Business Travel Consultant Type: Anesthesia Procedure Notes Filed: 03/31/2022 6:06 PM Note Text: ANESTHESIOLOGY PROCEDURE NOTE PIV General Information Procedure Start Time/Medication Administration: 03/31/2022 4:32 PM Patient Location: OR Staffing Anesthesiologist: Ever Salcedo MD Performed by: anesthesiologist Preparation Sterility Preparation: hand hygiene performed prior to procedure, mask used, skin prep agent completely dried prior to procedure Site Prep: alcohol Procedure Details Indication: need for IV access Needle Size/Type: 16 gauge angiocath Orientation: Right Location: Wrist Imaging Guidance Used: No SIGNATURE: Nawaf Caballero APRN.GEOGRAPHY TEACHER PATIENT NAME: Saeed Sarabia DATE: March 31, 2022 TIME: 6:05 PM CSN: [id number] [facility]06-23-2022 NoteHNO ID: [id number] Author: Nawaf Caballero APRN.GEOGRAPHY TEACHER Service: ? Author Type: Nurse Business Travel Consultant Type: Anesthesia Procedure Notes Filed: 03/31/2022 6:05 PM Note Text: ANESTHESIOLOGY PROCEDURE NOTE A-Line General Information Procedure Start Time/Medication Administration: 03/31/2022 4:40 PM Patient location during procedure: OR Timeout Performed Pre-procedure: timeout performed Indication: continuous blood pressure monitoring Staffing GEOGRAPHY TEACHER: Nawaf Caballero APRN.GEOGRAPHY TEACHER Preparation Sterility Preparation: hand hygiene performed prior to procedure, sterile gloves, drapes, and procedure tray, mask used, sterile drape used during line insertion, skin prep agent completely dried prior to procedure Site Prep: Chloraprep Procedure Details Catheter Size: 5 Fr Catheter Length: 5.25 in Micropuncture Kit Used: No Guidewire Used: Yes Guidewire Removed Intact: YesLaterality: left Site: radial artery Ultrasound Guided: NoLine Secured: tape and occlusive biodressing Events Events: patient tolerated procedure well with no complications SIGNATURE: Nawaf Caballero APRN.CRNA PATIENT NAME: Saeed Sarabia DATE: March 31, 2022 TIME: 6:01 PM CSN: [id number] Hospital06-23-2022 NoteHNO ID: [id number] Author: Ever Salcedo MD Service: ? Author Type: Anesthesiologist Type: Anesthesia Procedure Notes Filed: 03/31/2022 5:49 PM Note Text: ANESTHESIOLOGY PROCEDURE NOTE Airway General Information Procedure Start Time/Medication Administration: 03/31/2022 4:29 PM Patient location during procedure: OR Timeout Performed Pre-procedure: timeout performed Consent Obtained: Yes Patient identity confirmed: arm band and care coding team lead Staffing Anesthesiologist: Ever Salcedo MD Performed by: anesthesiologist Indications and Patient Condition Preoxygenated: yes Patient position: sniffing Manual In-Line Stabilization: No Difficult Mask: No Indications for airway management: anesthesia anesthesia circuit Method: asleep Cricoid Pressure: No Final Airway Details Final airway type: endotracheal airway Final Endotracheal Airway: ETT Cuffed: yes Successful intubation technique: video laryngoscopy Devices used: Massey Blade size: #3 ETT size (mm): 7.0 Measured from: lips Measurement (cm): 21 Placement verified by: capnometry Cormack-Lehane Classification: grade I - full view of glottis Number of attempts at approach: 1 Failed airway: no Unrecognized esophageal intubation: no Airway not difficult SIGNATURE: Nawaf Caballero APRN.CRNA PATIENT NAME: Saeed Sarabia DATE: March 31, 2022 TIME: 5:27 PM CSN: [id number] Hospital06-23-2022 NoteHNO ID: [id number] Author: Nawaf Caballero APRN.CRNA Service: ? Author Type: Nurse Business Travel Consultant Type: Anesthesia Procedure Notes Filed: 03/31/2022 5:24 PM Note Text: ANESTHESIOLOGY PROCEDURE NOTE PIV General Information Procedure Start Time/Medication Administration: 03/31/2022 4:21 PM Patient Location: OR Staffing GEOGRAPHY TEACHER: Nawaf Caballero APRN.CRNA Preparation Sterility Preparation: hand hygiene performed prior to procedure, mask used, skin prep agent completely dried prior to procedure Site Prep: alcohol Procedure Details Indication: need for IV access Needle Size/Type: 18 gauge angiocath Orientation: Left Location: Wrist Imaging Guidance Used: No SIGNATURE: Nawaf Caballero APRN.CRNA PATIENT NAME: Saeed Sarabia DATE: March 31, 2022 TIME: 5:22 PM CSN: [id number] Hospital06-22-2022 NoteHNO ID: [id number] Author: Fannie Blandon PA-C Service: Neurosurgery Author Type: Physician Pediatric Allergist Type: Progress Notes Filed: 03/30/2022 12:04 PM Note Text: SERVICE DATE: 03/30/2022 SERVICE TIME: 12:03 PM NEURO SURGERY PROGRESS NOTE Account #: Data Unavailable Admission Date: 03/28/2022 Date of Evaluation: March 29, 2022 Time of Evaluation: 12:45 PM Attending: Dr. Juice Sears MD. Location: [place] [address] Please page Mon-Mon-4p: Fannie Blandon PA-C [phone] Mon-Mon-6p: Courtney Deshpande [facility] [phone] Mon-Mon-7a and weekends: [phone] or BLAYNE cellular phone repairer Subjective INTERVAL HPI: reports no other concerns today. She was glad that her Echo looked good from yesterday. She states she still hasn't had a bowel movement. We discussed trying an enema today. Overnight events noted: none. MEDICATIONS: Current Facility-Administered Medications Medication Dose Route Frequency - sodium chloride 0.9 % (flush) 3-5 mL (BD POSIFLUSH) 3-5 mL INTRAVENOUS q 12 H - NaCl 0.9% iv flush bag 20 mL INTRAVENOUS PRN - oxyCODONE IR 5-10 mg tab(s) (ROXICODONE) 5-10 mg ORAL q 3 H PRN - acetaminophen 325-650 mg tab(s) (TYLENOL) 325-650 mg ORAL q 4 H PRN - ondansetron orally disintegrating 4 mg tab(s) (ZOFRAN ODT) 4 mg ORAL q 6 H PRN Or - ondansetron (PF) 4 mg injection (ZOFRAN) 4 mg INTRAVENOUS q 6 H PRN - gabapentin 100 mg cap(s) (NEURONTIN) 100 mg ORAL TID - rosuvastatin 5 mg tab(s) (CRESTOR) 5 mg ORAL DAILY - metoprolol succinate ER 100 mg tab(s) (TOPROL XL) 100 mg ORAL DAILY - ezetimibe 10 mg tab(s) (ZETIA) 10 mg ORAL DAILY - spironolactone 12.5 mg tab(s) (ALDACTONE) 12.5 mg ORAL DAILY - tiZANidine 4 mg tab(s) (ZANAFLEX) 4 mg ORAL AT BEDTIME - polyethylene glycol 3350 17 g packet (MIRALAX, GLYCOLAX) 17 g ORAL DAILY - senna 8.6 mg tab(s) (SENOKOT) 8.6 mg ORAL/FEEDING TUBE BID - magnesium hydroxide 400 mg/5 mL 30 mL (MOM) 30 mL ORAL/FEEDING TUBE DAILY - sodium chloride 0.9 % (flush) 2-10 mL (BD POSIFLUSH) 2-10 mL INTRAVENOUS DIRECTED PRN And - perflutren lipid microspheres 1.1 mg/mL 1.3 mL injection (DEFINITY) 1.3 mL INTRAVENOUS DIRECTED PRN - [START ON 04/01/2022] lisinopril 5 mg tab(s) (ZESTRIL, PRINIVIL) 5 mg ORAL/FEEDING TUBE DAILY - heparin 5,000 Units injection 5,000 Units SUBCUTANEOUS q 12 H - [START ON 04/02/2022] heparin 5,000 Units injection 5,000 Units SUBCUTANEOUS q 12 H - [START ON 03/31/2022] NaCl 0.9% iv infusion 75 mL/hr INTRAVENOUS CONTINUOUS Objective PHYSICAL EXAM: General: A AND O x 3. Appears stated age, overweight, in no apparent distress. Psychiatric: Mood and affect: Appropriate. Skin: Color, texture, turgor normal. No rashes or lesions Abdomen hypoactive bowel sounds with negative tenderness to palpation Musculoskeletal: Sensory: numbness the entire right leg from her hip distally Gait: No assessed Muscle strength: UE BICEPS TRICEPS DELTS Sales Architect R 5/5 5/5 5/5 5/5 L 5/5 5/5 5/5 5/5 LE Hip Flex Knee Flex Knee Extend Plantarflex Dorsiflex EHL R 4/5 4/5 4/5 3/5 2/5 2/5 L 5/5 5/5 5/5 5/5 5/5 5/5 III, IV, EOM full XII Tongue midline, mobile Drift:negative pronator drift Speech:intact and appropriate Hemineglect:not present LABS: CBC, Coags, BMP, Mg, Phos Recent Labs 03/28/22201403/28/22 1842 WBC -- 8.27 HB -- 14.0 HCT -- 43.1 PLT -- 240 INR 1.0 -- APTT 23.7 -- NA -- 139 K -- 4.2 CHLOR -- 105 CO2 -- 24 BUN -- 21 CREAT -- 0.72 GLUC -- 209* CA -- 9.4 Anion Gap Date Value Ref Range Status 03/28/2022 10 9 - 18 mmol/L Final VITAL SIGNS 24 HOUR REVIEW: 03/29/22 2116 03/30/22 0145 03/30/22 0600 03/30/22 1002 BP: 111/64 129/67 146/61 Pulse: 65 60 65 Resp: 18 18 18 Temp: 37.2 ?C (99 ?F) 36.5 ?C (97.7 ?F) 36.6 ?C (97.9 ?F) TempSrc: Axillary Axillary Oral SpO2: 92% 96% 94% Weight: 75.6 kg (166 lb 10.7 oz) Intake/Output Summary (Last 24 hours) at 03/30/2022 1201 Last data filed at 03/30/2022 1000 Gross per 24 hour Intake 280 ml Output 1275 ml Net -995 ml IMAGING: CXR: Lines, tubes, and devices: ?None. Lungs and pleura: ?No acute focal lung consolidation is seen. No substantial pleural effusion is seen. There is no pneumothorax. Cardiomediastinal silhouette: ?Stable cardiomediastinal silhouette. ?The aortic arch is atherosclerotic. Echo: Exam indication: CAD - The left ventricle is normal in size. Left ventricular systolic function is normal. EF = 64 ? 5% (2D biplane) - The right ventricle is normal in size. Right ventricular systolic function is normal. -No significant valvular abnormalities. - The patient has not had a prior CC echocardiographic exam for comparison. Lines, Drains, and Airways Line Peripheral 03/28/22 1751 Assessment Short Left Antecubital 18 Gauge 1 day PATIENT CHECK LIST: Needs PT or OT Evaluation Vascular access necessary Claire/drains: No No restraint necessary No Central line needed Pendin (more content not included)...[facility]06-21-2022 Note HNO ID: [id number] Author: Fannie Blandon PA-C Service: Neurosurgery Author Type: Physician Pediatric Allergist Type: Progress Notes Filed: 03/29/2022 1:03 PM Note Text: SERVICE DATE: 03/29/2022 SERVICE TIME: 1:03 PM NEURO SURGERY PROGRESS NOTE Account #: Data Unavailable Admission Date: 03/28/2022 Date of Evaluation: March 29, 2022 Time of Evaluation: 12:45 PM Attending: Dr. Juice Sears MD. [address] Please page -: Fannie Blandon PA-C [phone] Mon-Mon-p: Courtney Deshpande CNP [phone] Mon-Mon- and weekends: [id number] or BLAYNE cellular phone repairer Subjective INTERVAL HPI: reports she still has significant right greater than left painful, numbness and burning pain. She states that she tried to stand today and walk to the bathroom but she needs a lot of help and a walker. She states that she normally wears depends so it is hard to see if she has had any chnages with her urination however she has not had a bowel movement in several days and feels very uncomfortable today. She reports no changing symptoms since admission. She also reports with higher doses of gabapentin makes her throw up. Denies excessive pain, bleeding, drainage, nausea, vomiting, chest pain, shortness of breath, light headedness, swelling, itching and calf pain. Patient reports she was scheduled for spine surgery for April 16. Overnight events noted: none. MEDICATIONS: Current Facility-Administered Medications Medication Dose Route Frequency - sodium chloride 0.9 % (flush) 3-5 mL (BD POSIFLUSH) 3-5 mL INTRAVENOUS q 12 H - NaCl 0.9% iv flush bag 20 mL INTRAVENOUS PRN - oxyCODONE IR 5-10 mg tab(s) (ROXICODONE) 5-10 mg ORAL q 3 H PRN - acetaminophen 325-650 mg tab(s) (TYLENOL) 325-650 mg ORAL q 4 H PRN - ondansetron orally disintegrating 4 mg tab(s) (ZOFRAN ODT) 4 mg ORAL q 6 H PRN Or - ondansetron (PF) 4 mg injection (ZOFRAN) 4 mg INTRAVENOUS q 6 H PRN - gabapentin 100 mg cap(s) (NEURONTIN) 100 mg ORAL TID - rosuvastatin 5 mg tab(s) (CRESTOR) 5 mg ORAL DAILY - lisinopril 5 mg tab(s) (ZESTRIL, PRINIVIL) 5 mg ORAL DAILY - metoprolol succinate ER 100 mg tab(s) (TOPROL XL) 100 mg ORAL DAILY - ezetimibe 10 mg tab(s) (ZETIA) 10 mg ORAL DAILY - spironolactone 12.5 mg tab(s) (ALDACTONE) 12.5 mg ORAL DAILY - tiZANidine 4 mg tab(s) (ZANAFLEX) 4 mg ORAL AT BEDTIME - polyethylene glycol 3350 17 g packet (MIRALAX, GLYCOLAX) 17 g ORAL DAILY - senna 8.6 mg tab(s) (SENOKOT) 8.6 mg ORAL/FEEDING TUBE BID - magnesium hydroxide 400 mg/5 mL 30 mL (MOM) 30 mL ORAL/FEEDING TUBE DAILY - [START ON 03/30/2022] bumetanide 0.5 mg tab(s) (BUMEX) 0.5 mg ORAL DAILY Objective PHYSICAL EXAM: General: A AND O x 3. Appears stated age, overweight, in no apparent distress. Psychiatric: Mood and affect: Appropriate. Skin: Color, texture, turgor normal. No rashes or lesions Abdomen hypoactive bowel sounds with negative tenderness to palpation Musculoskeletal: Sensory: numbness the entire right leg from her hip distally Gait: No assessed Muscle strength: UE BICEPS TRICEPS DELTS Sales Architect R 5/5 5/5 5/5 5/5 L 5/5 5/5 5/5 5/5 LE Hip Flex Knee Flex Knee Extend Plantarflex Dorsiflex EHL R 4/5 4/5 4/5 3/5 2/5 2/5 L 5/5 5/5 5/5 5/5 5/5 5/5 III, IV, EOM full XII Tongue midline, mobile Drift:negative pronator drift Speech:intact and appropriate Hemineglect:not present LABS: CBC, Coags, BMP, Mg, Phos Recent Labs 03/28/22201403/28/22 1842 WBC -- 8.27 HB -- 14.0 HCT -- 43.1 PLT -- 240 INR 1.0 -- APTT 23.7 -- NA -- 139 K -- 4.2 CHLOR -- 105 CO2 -- 24 BUN -- 21 CREAT -- 0.72 GLUC -- 209* CA -- 9.4 Anion Gap Date Value Ref Range Status 03/28/2022 10 9 - 18 mmol/L Final VITAL SIGNS 24 HOUR REVIEW: 03/28/22 2320 03/29/22 0212 03/29/22 0536 03/29/22 0903 BP: 149/67 148/70 126/61 Pulse: 74 71 66 65 Resp: 16 16 20 Temp: 36.7 ?C (98.1 ?F) 36.7 ?C (98.1 ?F) 36.6 ?C (97.9 ?F) TempSrc: Oral Oral Oral SpO2: 95% 95% 96% 95% Intake/Output Summary (Last 24 hours) at 03/29/2022 1250 Last data filed at 03/29/2022 1000 Gross per 24 hour Intake 118 ml Output 550 ml Net -432 ml IMAGING: CXR: Lines, tubes, and devices: ?None. Lungs and pleura: ?No acute focal lung consolidation is seen. No substantial pleural effusion is seen. There is no pneumothorax. Cardiomediastinal silhouette: ?Stable cardiomediastinal silhouette. ?The aortic arch is atherosclerotic. Lines, Drains, and Airways Line Peripheral 03/28/22 1751 Assessment Short Left Antecubital 18 Gauge <1 day PATIENT CHECK LIST: Needs PT or OT Evaluation Vascular access necessary Claire/drains: No No restraint necessary No Central line needed Pending studies: lower extremity dvt scan Consults requested: Service internal medicine Fannie Blandon PA-C Neurosurgery The above was discussed with the Attending Physician: Juice Sears MD Assessment AND Plan 8 (more content not included)...[facility]06-20-2022 NoteHNO ID: [id number] Author: Tamra Minor [facility] Service: Pharmacy Author Type: Pharmacist Type: Plan of Care Filed: 03/28/2022 8:53 PM Note Text: PHARMACY MEDICATION REVIEW Patient Name: Saeed Sarabia : 1940 The following medications were updated within the [employer] medication list: Medications ADDED to [employer] medication list ? All below medications added Medications CHANGED on [employer] medication list ? NA Medications REMOVED from [employer] medication list ? NA Additional comments: patient transferred from OSH where some medications were held (apixaban, bumetanide, spironolactone), substituted (rosuvastatin -> atorvastatin AND metformin + glipizide -> Aspart 3 units w/ meals + Detemir 5 units w/ breakfast) The below information represents the best possible medication history: Yes Medication history completed by: Pharmacist: Tamra Minor RPh Source of history: Outside hospital records - Name:[facility] [place] and Pharmacy records: [facility] (via [facility]) Medication nonadherence identified: No barriers noted Reconciliation completed: Yes Completed by: Tamra Minor RPh All [employer] medications addressed by LIP Patient interested in Bedside Delivery Services or using OP Pharmacy at discharge? Unable to assess Preferred outpatient pharmacy: No Pharmacies Listed Allergies: No Known Allergies Prior to Admission Medications Prescriptions Last Dose Informant Patient Reported? Taking? apixaban (ELIQUIS) 5 mg tab(s) Yes Yes Sig: Take by mouth twice daily. bumetanide (BUMEX) 1 mg tablet Yes Yes Sig: Take 0.5-1 mg by mouth once daily as needed (edema). celecoxib (CELEBREX) 200 mg capsule Yes Yes Sig: Take 200 mg by mouth once daily as needed for pain (arthritis). ezetimibe (ZETIA) 10 mg tablet Yes Yes Sig: Take 10 mg by mouth once daily. gabapentin (NEURONTIN) 100 mg capsule Yes Yes Sig: Take 100 mg by mouth three times daily. glipiZIDE (GLUCOTROL) 5 mg tablet Yes Yes Sig: Take 5 mg by mouth twice daily before meals. lisinopril (ZESTRIL, PRINIVIL) 5 mg tablet Yes Yes Sig: Take 5 mg by mouth once daily. metFORMIN (GLUCOPHAGE) 1,000 mg tablet Yes Yes Sig: Take 1,000 mg by mouth twice daily with meals. metoprolol succinate ER (TOPROL XL) 100 mg Yes Yes Sig: Take 100 mg by mouth once daily. rosuvastatin (CRESTOR) 5 mg tablet Yes Yes Sig: Take 5 mg by mouth once daily. spironolactone (ALDACTONE) 25 mg tablet Yes Yes Sig: Take 12.5 mg by mouth once daily. tiZANidine (ZANAFLEX) 4 mg tablet Yes Yes Sig: Take 4 mg by mouth daily at bedtime. Facility-Administered Medications: None Tamra Minor [facility] 03/28/2022[facility]06-19-2022 Progress note Author Kieran Scott [facility] March 27, 2022 3:10pm Note Date/Time March 27, 2022 3:10 pm [facility] [address] [place] [address] Hospitalist Progress Note Signed Patient: Saeed Sarabia MR#: [id number] : 1940 Acct:[id number] Age/Sex: 81 / F Adm Date: 2 Loc: Room: [address] [place] [address] Type : ADM INOo Attending Dr: Kieran Scott MD Copies to: ~ Date of Service: 03/27/2022 Subjective Subjective Narrative: 03/27/2022 Patient was seen at bedside. She was able to get onto the couch. She is resting comfortably. Her was in the room too. She did not have any complaint other than her usual numbness and weakness. She is still waiting to be transferred to [facility]. We still did not hear any open bed for her. She is unable to lift the foot. States that she has shooting pain in her right leg with any movement. She is otherwise hemodynamically stable and is saturating well on room air and is afebrile. Exam Physical Exam Vital Signs: Temp Pulse Resp BP Pulse Ox 97.7 F 73 15 138/76 93 L 03/27/22 11:50 03/27/22 11:50 03/27/22 11:50 03/27/22 11:50 03/27/22 11:50 Objective Lab Results CBC & Chem 7: 03/27/22 04:49 03/27/22 04:49 Microbiology Results Microbiology 03/25/22 08:35 Urine, Claire Urine Culture - Final Meds Allergies and Active Meds Allergies No Known Allergies Allergy (Verified 03/23/22 15:37) Active Meds: Active Medications Generic Name Dose Route Start Last Admin Trade Name Kris PRN Reason Stop Dose Admin Acetaminophen 650 mg 03/24/22 13:48 03/27/22 11:56 Acetaminophen 325 Mg Tablet PO 03/24/23 13:47 650 mg Q6H PRN Administration Pain Atorvastatin Calcium 10 mg 03/24/22 09:00 03/27/22 08:34 Atorvastatin 10 Mg Tablet PO 03/24/23 08:59 10 mg DAILY LAUREN Administration Bumetanide 0.5 - 1 mg 03/24/22 04:24 Bumetanide 1 Mg Tablet PO 03/24/23 04:23 DAILY PRN Edema Celecoxib 200 mg 03/24/22 04:24 03/27/22 08:42 Celecoxib 200 Mg Capsule PO 03/24/23 04:23 200 mg DAILY PRN Administration arthritic pain Dextrose 0 gm 03/24/22 04:25 Dextrose 50% In Water 25 Gm/50 Ml Syringe IV-PUSH 03/24/23 04:24 PRN PRN Hypoglycemia Ezetimibe 10 mg 03/24/22 09:00 03/27/22 08:34 Ezetimibe 10 Mg Tablet PO 03/24/23 08:59 10 mg DAILY LAUREN Administration Gabapentin 100 mg 03/25/22 14:00 03/27/22 14:04 Gabapentin 100 Mg Capsule PO 03/25/23 13:59 100 mg TID LAUREN Administration Glucose 0 gm 03/24/22 04:25 Dextrose 40% Gel 15 Gm Tube PO 03/24/23 04:24 PRN PRN Hypoglycemia Insulin Aspart 0 units 03/24/22 08:00 03/27/22 12:48 Insulin Aspart 300 Units/3 Ml Insuln.Pen SUBCUT 03/24/23 07:59 3 units TID.WM.HS LAUREN Administration Protocol Insulin Detemir 5 units 03/24/22 08:00 03/27/22 08:36 Insulin Detemir 300 Units/3 Ml Insuln.Pen SUBCUT 03/24/23 07:59 5 units DAILY.WITH.BKFAST LAUREN Administration Lisinopril 5 mg 03/24/22 09:00 03/27/22 08:34 Lisinopril 5 Mg Tablet PO 03/24/23 08:59 5 mg DAILY LAUREN Administration Metoprolol Succinate 100 mg 03/24/22 09:00 03/27/22 08:34 Metoprolol Succinate 100 Mg Tab.Er.24h PO 03/24/23 08:59 100 mg DAILY LAUREN Administration Ondansetron HCl 4 mg 03/24/22 14:01 03/24/22 14:05 Ondansetron 4 Mg/2 Ml Vial IV-PUSH 03/24/23 14:00 4 mg Q6H PRN Administration Nausea And Vomiting Sodium Chloride 0 ml 03/23/22 15:36 Sodium Chloride 0.9 % 10 Ml Syringe IV-PUSH 03/23/23 15:35 PRN PRN Flush Tizanidine HCl 2 mg 03/25/22 22:00 03/26/22 21:17 Tizanidine 4 Mg Tablet PO 03/25/23 21:59 2 mg HS LAUREN Administration A&P - Hospitalist Assessment/Plan (1) Lumbar spinal stenosis: (2) Foot drop, right: Plan 03/27/2022 Patient is waiting to be transferred to [facility]. We do not have any neurosurgical coverage in this hospital for now. I have called the transfer center. Clinic once again to get the updates and current status of her bed situation. Unfortunately patient still do not have any bed to be transferred to. Yesterday there was a discussion that patient may go on her own with a private vehicle. However today family is thinking that is better off to go fromhospital to hospital directly. We will continue with current medical therapy and plan as given below. I will DC her Claire catheter. She has traumatic urinecollection with plenty RBC. We will try to use [place] and repeat UA for today. Admission Assessment and Plan: Lumbar spinal stenosis/right foot drop Patient continues to have weakness in the right foot with numbness MRI lumbar spine from [facility] reviewed which showed L4-L5 disc desiccation, moderate diffuse disc bulge and ligamentum flavum hypertrophy and facet osteoarthropathy, severe central canal stenosis, moderate right and mild left foraminal stenosis, L5-S1 moderate to severe disc space narrowing with endplate sclerosis Patient has been accepted by neurosurgery at [facility] and is awaiting bed Family is upset that she does not have a bed available yet at [facility] and wants to go to [facility] if possible. Spoke to neurosurgery at [facility] who would like to see the patient on consult if accepted by medical service. Awaiting call from medical service. Chronic conditions: Atrial fibrillation-we will hold Eliquis at this point due to possible surgery Type 2 diabetes/hypertension?we will resume home medications CODE STATUS: Full code DVT prophylaxis: SCDs Documented By: Kieran Scott MD 03/27/22 1504 Signed By: <Electronically signed by Kieran Scott MD> 03/27/22 15[address] [facility] Work Phone: 1(284) 411-663506-18-2022 Progress note Author Kieran Scott [facility] March 26, 2022 3:44pm Note Date/Time March 26, 2022 3:37 pm [facility] [address] [place] [address] Hospitalist Progress Note Signed Patient: Saeed Sarabia MR#: [id number] : 1940 Acct:[id number] Age/Sex: 81 / F Adm Date: 2 Loc: 4N Room: [address] [place] [address] Type : ADM INOo Attending Dr: Kieran Scott MD Copies to: ~ Date of Service: 03/26/2022 Subjective Subjective Narrative: 03/26/2022 Patient was seen at bedside. She was able to get onto the couch. She is resting comfortably. Her was in the room 2. She did not have any complaint other than her usual numbness and weakness. She is still waiting to be transferred to [facility]. We still did not hear any open bed for her. She is unable to lift the foot. States that she has shooting pain in her right leg with any movement. She is otherwise hemodynamically stable and is saturating well on room air and is afebrile. Exam Physical Exam Vital Signs: Temp Pulse Resp BP Pulse Ox 98.2 F 68 20 106/61 93 L 03/26/22 12:00 03/26/22 12:00 03/26/22 12:00 03/26/22 12:00 03/26/22 12:00 Objective Lab Results CBC & Chem 7: 03/24/22 06:14 03/24/22 06:14 Microbiology Results Microbiology 03/25/22 08:35 Urine, Claire Urine Culture - Preliminary <9,000 colonies/ml mixed bacterial skin contaminants 1 Day Meds Allergies and Active Meds Allergies No Known Allergies Allergy (Verified 03/23/22 15:37) Active Meds: Active Medications Generic Name Dose Route Start Last Admin Trade Name Kris PRN Reason Stop Dose Admin Acetaminophen 650 mg 03/24/22 13:48 03/26/22 09:27 Acetaminophen 325 Mg Tablet PO 03/24/23 13:47 650 mg Q6H PRN Administration Pain Atorvastatin Calcium 10 mg 03/24/22 09:00 03/26/22 08:41 Atorvastatin 10 Mg Tablet PO 03/24/23 08:59 10 mg DAILY LAUREN Administration Bumetanide 0.5 - 1 mg 03/24/22 04:24 Bumetanide 1 Mg Tablet PO 03/24/23 04:23 DAILY PRN Edema Celecoxib 200 mg 03/24/22 04:24 03/26/22 09:27 Celecoxib 200 Mg Capsule PO 03/24/23 04:23 200 mg DAILY PRN Administration arthritic pain Dextrose 0 gm 03/24/22 04:25 Dextrose 50% In Water 25 Gm/50 Ml Syringe IV-PUSH 03/24/23 04:24 PRN PRN Hypoglycemia Ezetimibe 10 mg 03/24/22 09:00 03/26/22 08:40 Ezetimibe 10 Mg Tablet PO 03/24/23 08:59 10 mg DAILY LAUREN Administration Gabapentin 100 mg 03/25/22 14:00 03/26/22 14:40 Gabapentin 100 Mg Capsule PO 03/25/23 13:59 100 mg TID LAUREN Administration Glucose 0 gm 03/24/22 04:25 Dextrose 40% Gel 15 Gm Tube PO 03/24/23 04:24 PRN PRN Hypoglycemia Insulin Aspart 0 units 03/24/22 08:00 03/26/22 12:33 Insulin Aspart 300 Units/3 Ml Insuln.Pen SUBCUT 03/24/23 07:59 3 units TID.WM.HS LAUREN Administration Protocol Insulin Detemir 5 units 03/24/22 08:00 03/26/22 08:41 Insulin Detemir 300 Units/3 Ml Insuln.Pen SUBCUT 03/24/23 07:59 5 units DAILY.WITH.BKFAST LAUREN Administration Lisinopril 5 mg 03/24/22 09:00 03/26/22 08:41 Lisinopril 5 Mg Tablet PO 03/24/23 08:59 5 mg DAILY LAUREN Administration Metoprolol Succinate 100 mg 03/24/22 09:00 03/26/22 08:41 Metoprolol Succinate 100 Mg Tab.Er.24h PO 03/24/23 08:59 100 mg DAILY LAUREN Administration Ondansetron HCl 4 mg 03/24/22 14:01 03/24/22 14:05 Ondansetron 4 Mg/2 Ml Vial IV-PUSH 03/24/23 14:00 4 mg Q6H PRN Administration Nausea And Vomiting Sodium Chloride 0 ml 03/23/22 15:36 Sodium Chloride 0.9 % 10 Ml Syringe IV-PUSH 03/23/23 15:35 PRN PRN Flush Tizanidine HCl 2 mg 03/25/22 22:00 03/25/22 20:59 Tizanidine 4 Mg Tablet PO 03/25/23 21:59 2 mg HS LAUREN Administration A&P - Hospitalist Assessment/Plan (1) Lumbar spinal stenosis: (2) Foot drop, right: Plan 03/26/2022 Patient is waiting to be transferred to [facility]. We do not have any neurosurgical coverage in this hospital for now. I have called the transfer center. Clinic once again to get the updates and current status of her bed situation. Unfortunately patient still do not have any bed to be transferred to. Yesterday there was a discussion that patient may go on her own with a private vehicle. However today family is thinking that is better off to go fromspital to hospital directly. We will continue with current medical therapy and plan as given below. Admission Assessment and Plan: Lumbar spinal stenosis/right foot drop Patient continues to have weakness in the right foot with numbness MRI lumbar spine from [facility] reviewed which showed L4-L5 disc desiccation, moderate diffuse disc bulge and ligamentum flavum hypertrophy and facet osteoarthropathy, severe central canal stenosis, moderate right and mild left foraminal stenosis, L5-S1 moderate to severe disc space narrowing with endplate sclerosis Patient has been accepted by neurosurgery at [facility] and is awaiting bed Family is upset that she does not have a bed available yet at [facility] and wants to go to [facility] if possible. Spoke to neurosurgery at [facility] who would like to see the patient on consult if accepted by medical service. Awaiting call from medical service. Chronic conditions: Atrial fibrillation-we will hold Eliquis at this point due to possible surgery Type 2 diabetes/hypertension?we will resume home medications CODE STATUS: Full code DVT prophylaxis: SCDs Documented By: Kieran Scott MD 03/26/22 1522 Signed By: <Electronically signed by Kieran Scott MD> 03/26/22 1544 [facility] Work Phone: [phone]) 472-227806-17-2022 Progress note Author Rupert Anthony [facility] March 25, 2022 3:36pm Note Date/Time March 25, 2022 3:36 pm [facility] [address] [place] [address] Hospitalist Progress Note Signed Patient: Saeed Sarabia MR#: [id number] : 1940 Acct:[id number] Age/Sex: 81 / F Adm Date: 2 Loc: Room: [address] [place] [address] Type : ADM INOo Attending Dr: Rupert Anthony MD Copies to: ~ Date of Service: 03/25/2022 Subjective Subjective Narrative: Patient seen and examined. Patient continues to complain numbness and weakness in the right foot and is unable to lift the foot. States that she has shooting pain in her right leg with any movement. She is otherwise hemodynamically stable and is saturating well on room air and is afebrile. Exam Physical Exam Vital Signs: Temp Pulse Resp BP Pulse Ox 98.3 F 66 26 H 147/65 H 96 03/25/22 12:00 03/25/22 12:00 03/25/22 12:00 03/25/22 12:00 03/25/22 12:00 Narrative: General: Awake, alert, oriented x3 not in acute distress HEENT: Normocephalic, atraumatic, PERRLA, normal mucosa Cardiovascular: Regular rate and rhythm , S1-S2 heard, no murmurs or gallops Lungs: No wheezing or rhonchi heard Gastrointestinal: Soft, nontender, bowel sounds heard Extremities: No edema Neurological: 5/5 strength in bilateral upper extremities and left lower extremity, 4/5 strength with hip flexion and extension in the right lower extremity, 0/5 with dorsiflexion, extension, inversion and eversion of the rightfoot, slightly diminished sensation in right foot Speech normal. Skin: Dry and warm, no rashes or lesions Psych: Normal mood and affect Objective Lab Results CBC & Chem 7: 03/24/22 06:14 03/24/22 06:14 Meds Allergies and Active Meds Allergies No Known Allergies Allergy (Verified 03/23/22 15:37) Active Meds: Active Medications Generic Name Dose Route Start Last Admin Trade Name Kris PRN Reason Stop Dose Admin Acetaminophen 650 mg 03/24/22 13:48 03/24/22 13:55 Acetaminophen 325 Mg Tablet PO 03/24/23 13:47 650 mg Q6H PRN Administration Pain Atorvastatin Calcium 10 mg 03/24/22 09:00 03/25/22 08:43 Atorvastatin 10 Mg Tablet PO 03/24/23 08:59 10 mg DAILY LAUREN Administration Bumetanide 0.5 - 1 mg 03/24/22 04:24 Bumetanide 1 Mg Tablet PO 03/24/23 04:23 DAILY PRN Edema Celecoxib 200 mg 03/24/22 04:24 Celecoxib 200 Mg Capsule PO 03/24/23 04:23 DAILY PRN arthritic pain Dextrose 0 gm 03/24/22 04:25 Dextrose 50% In Water 25 Gm/50 Ml Syringe IV-PUSH 03/24/23 04:24 PRN PRN Hypoglycemia Ezetimibe 10 mg 03/24/22 09:00 03/25/22 08:44 Ezetimibe 10 Mg Tablet PO 03/24/23 08:59 10 mg DAILY LAUREN Administration Gabapentin 100 mg 03/25/22 14:00 03/25/22 14:02 Gabapentin 100 Mg Capsule PO 03/25/23 13:59 100 mg TID LAUREN Administration Glucose 0 gm 03/24/22 04:25 Dextrose 40% Gel 15 Gm Tube PO 03/24/23 04:24 PRN PRN Hypoglycemia Insulin Aspart 0 units 03/24/22 08:00 03/25/22 11:46 Insulin Aspart 300 Units/3 Ml Insuln.Pen SUBCUT 03/24/23 07:59 1 units TID.WM.HS LAUREN Administration Protocol Insulin Detemir 5 units 03/24/22 08:00 03/25/22 08:44 Insulin Detemir 300 Units/3 Ml Insuln.Pen SUBCUT 03/24/23 07:59 5 units DAILY.WITH.BKFAST LAUREN Administration Lisinopril 5 mg 03/24/22 09:00 03/25/22 08:43 Lisinopril 5 Mg Tablet PO 03/24/23 08:59 5 mg DAILY LAUREN Administration Metoprolol Succinate 100 mg 03/24/22 09:00 03/25/22 08:44 Metoprolol Succinate 100 Mg Tab.Er.24h PO 03/24/23 08:59 100 mg DAILY LAUREN Administration Ondansetron HCl 4 mg 03/24/22 14:01 03/24/22 14:05 Ondansetron 4 Mg/2 Ml Vial IV-PUSH 03/24/23 14:00 4 mg Q6H PRN Administration Nausea And Vomiting Sodium Chloride 0 ml 03/23/22 15:36 Sodium Chloride 0.9 % 10 Ml Syringe IV-PUSH 03/23/23 15:35 PRN PRN Flush Tizanidine HCl 2 mg 03/25/22 22:00 Tizanidine 4 Mg Tablet PO 03/25/23 21:59 HS [facility] A&P - Hospitalist Assessment/Plan (1) Lumbar spinal stenosis: (2) Foot drop, right: Plan Lumbar spinal stenosis/right foot drop Patient continues to have weakness in the right foot with numbness MRI lumbar spine from [facility] reviewed which showed L4-L5 disc desiccation, moderate diffuse disc bulge and ligamentum flavum hypertrophy and facet osteoarthropathy, severe central canal stenosis, moderate right and mild left foraminal stenosis, L5-S1 moderate to severe disc space narrowing with endplate sclerosis Patient has been accepted by neurosurgery at [facility] and is awaiting bed Family is upset that she does not have a bed available yet at [facility] and wants to go to [facility] if possible. Spoke to neurosurgery at [facility] who would like to see the patient on consult if accepted by medical service. Awaiting call from medical service. Chronic conditions: Atrial fibrillation-we will hold Eliquis at this point due to possible surgery Type 2 diabetes/hypertension?we will resume home medications CODE STATUS: Full code DVT prophylaxis: SCDs Documented By: Rupert Anthony MD 03/25/22 1527 Signed By: <Electronically signed by Rupert Anthony MD> 03/25/[address] [facility] Work Phone: [phone] 768-620406-17-2022 Consult note Author Yvrose Crocker [facility] March 25, 2022 10:12am Note Date/Time March 24, 2022 9:58 am [facility] [address] [place] [address] Neurology Consult Note Signed with Addenda Patient: Saeed Sarabia MR#: [id number] : 1940 Acct:[id number] Age/Sex: 81 / F Adm Date: 2 Loc: Room: [address] [place] [address] Type : ADM INOo Attending Dr: Rupert Anthony MD Copies to: MD Yvrose Colin, BLAKE Ford~ ADDENDUM1 Patient still having discomfort in the right lower extremity described as burning type pain into her leg and groin. We will increase her gabapentin to 3 times a day 100 mg. We will also make her Zanaflex scheduled to set up as needed. Can consider steroid dosing. If the patient does not have a bed assignment at [facility] today we can contact [facility] or [facility] for other options. Patient and state understanding and are agreeable. Addendum Documented By: JH Crocker 03/25/22 1012 Addendum Signed By: <Electronically signed by JH Crocker> 03/25/22 1012 HPI Consult Date: 03/24/22 [employer] Dolls: BLAKE Green with Dr Astorga Reason for consult: Foot drop Consult Narrative HPI: Patient is an 81-year-old female with medical history of atrial fibrillation on Eliquis, diabetes mellitus type 2, hypertension, hyperlipidemia, and spinal stenosis. She is being seen in neurological consultation at request of the hospital service for right foot drop. Patient was scheduled to have surgery on her lumbar spine on 03/17 however this was canceled. Patient noticed the foot drop approximately 1 week ago with acute worsening over the last couple of days. She did fall approximately 3 days ago in the bathroom. She reports numbness and pain described as a burning sensation that radiates from her foot up her legand into her groin and rectum. She states the pain and her lower extremities, right greater than left, is not necessarily different. Her greatest concern over new symptoms is the foot drop. She denies loss of bowel or bladder control. However, she does report that she had difficulty emptying her bladder,getting her urine started, yesterday. She denies any saddle paresthesias. She did receive dexamethasone in the emergency room and reports some improvement in her pain level. She had an MRI scan of her lumbar spine at [facility] recently which prompted the surgery. She denies headache, vision changes, dysarthria, dysphagia, weakness in her upper extremities, or weakness in her left lower extremity. Review of Systems Constitutional Constitutional: Denies chills and Denies fever(s) Eyes Eyes: Denies blurry vision, Denies diplopia and Denies loss of vision ENT Ears, Nose, Mouth, and Throat: Denies nasal congestion and Denies nasal discharge Cardiovascular Cardiovascular: Denies chest pain and Denies palpitations Respiratory Respiratory: Denies cough and Denies dyspnea Gastrointestinal Gastrointestinal: Denies change in bowel habits, Denies fecal incontinence, Denies nausea and Denies vomiting Genitourinary Genitourinary: Denies dysuria, Reports urinary frequency, Denies urinary incontinence and Denies urinary urgency Musculoskeletal Musculoskeletal: Reports back pain, Reports muscle weakness, Denies neck pain and Reports radiating pain into limb Integumentary/Breasts Skin/Breast: Denies pruritus and Denies rash Neurologic Neurologic: Reports as per HPI Psychiatric Psychiatric: Denies confusion PMFSH Vaccinated for COVID-19?: Yes Medical History Arthritis Atrial fibrillation CAD (coronary artery disease) Diabetes GERD (gastroesophageal reflux disease) Hematoma following angiography History of cardioversion 2011 (w/RODRIGUEZ), 2015 Hyperlipidemia Hypertension Mitral valve regurgitation Surgical History History of cardiac cath x 2 History of evacuation of hematoma History of PTCA 2005 No pertinent past surgical history Family History Father Heart attack CAD (coronary artery disease) Mother Heart attack CAD (coronary artery disease) Daughter Multiple sclerosis Social History Smoking Status: Never smoker Substance Use Type: None Meds Medications and Allergies Allergies No Known Allergies Allergy (Verified 03/23/22 15:37) Home Medications apixaban 5 mg tablet (Eliquis) 5 mg PO BID 03/09/22 [History Confirmed 03/23/22] bumetanide 1 mg tablet 0.5 - 1 mg PO DAILY PRN 03/09/22 [History Confirmed 03/23/22] celecoxib 200 mg capsule 200 mg PO DAILY PRN 03/09/22 [History Confirmed 03/23/22] ezetimibe 10 mg tablet 10 mg PO DAILY 03/09/22 [History Confirmed 03/23/22] gabapentin 100 mg capsule 100 mg PO TID PRN 03/09/22 [History Confirmed 03/23/22] glipizide 5 mg tablet 5 mg PO BID 03/09/22 [History Confirmed 03/23/22] lisinopril 5 mg tablet 5 mg PO DAILY 03/09/22 [History Confirmed 03/23/22] metformin 1,000 mg tablet 1,000 mg PO BID 03/09/22 [History Confirmed 03/23/22] metoprolol succinate 100 mg tablet,extended release 24 hr 100 mg PO DAILY 03/09/22 [History Confirmed 03/23/22] rosuvastatin 5 mg tablet 5 mg PO DAILY 03/09/22 [History Confirmed 03/23/22] spironolactone 25 mg tablet 12.5 mg PO DAILY 03/09/22 [History Confirmed 03/23/22] tizanidine 4 mg tablet 2 mg PO HS PRN 03/09/22 [History Confirmed 03/23/22] tizanidine 4 mg tablet 4 mg PO HS PRN 03/09/22 [History Confirmed 03/23/22] Exam Physical Exam Vital Signs: Temp Pulse Resp BP Pulse Ox 97.6 F 92 H 20 144/80 H 94 L 03/24/22 07:55 03/24/22 07:55 03/24/22 07:55 03/24/22 07:55 03/24/22 07:55 Narrative: GENERAL EXAM: * Constitutional - Patient appears well nourished and well groomed * Patient is alert and oriented x3. * Apical is regular rate and irregular rhythm. No murmur was appreciated. No edema noted. Pulses are normal * Lung sounds are clear to auscultation * Abdomen is soft with normal bowel sounds * Neck is supple without carotid bruit * Ophthalmoscopic exam deferred. No injection or drainage noted. NEURO EXAM: * Attention span/concentration normal * Speech is clear and fluent * Cranial nerve II. Vision is intact. FELIZ * Cranial nerve III, IV and . Extraocular muscles are intact. No nystagmus is appreciated * Cranial nerve V and VII. No facial asymmetry is appreciated. Temperature and pinprick is equal bilaterally * Cranial nerve VIII hearing is intact * Cranial nerve IX and X speech is clear fluent. Palate elevates symmetrically * Cranial nerve XI head turn side to side full range of motion. Shoulder shrug is equal bilaterally * Cranial nerve XII tongue is midline full range of motion MOTOR EXAM: * Strength is 5/5 in bilateral upper extremities. No pronator drift was appreciated * 5/5 in the left lower extremity throughout with mild straight leg raise. * 4/5 with hip flexion and extension in the right lower extremity. 0/5 with dorsiflexion, extension, inversion, and eversion of the right foot * Muscle tone and bulk are normal * Gait not assessed SENSORY EXAM: * Temperature, pinprick, vibration are intact in all 4 extremities. She reports decreased pinprick and cold sensation in the top of the foot on the right compared to the left CEREBELLAR EXAM: * Rjezmj-iu-srjo and alternating movements are intact and normal in bilateral upper extremities * Yszi-cw-nnin and alternating movements are intact and normal in the left lower extremity. She is able to do malx-sk-cwfd with the right lower extremity with some difficulty secondary to weakness. Unable to do alternating movements at the toe or ankle on the right REFLEX EXAM: * 2/4 at the bicep and brachioradialis bilaterally. * 2/4 at the patella and Achilles on the left. * 0/4 at the patella and Achilles on the right Results Laboratory Findings CBC and BMP: 03/24/22 06:14 03/24/22 06:14 Diagnostic Findings Imaging/Impressions: ITS Impressions Chest X-Ray 03/23/22 19:20 IMPRESSION: No acute cardiopulmonary pathology. Interstitial prominence is present bilaterally which is most likely chronic in nature. Impression dictated by: Donny Wolf M.D.03/23/2022 8:03 PM Dictation Location: [place] [address] Knee X-Ray 03/23/22 19:20 IMPRESSION: Tricompartmental osteoarthritic changes are noted. There is also evidence suggesting underlying chondrocalcinosis. No acute bony injury. Impression dictated by: Donny Wolf M.D.03/23/2022 8:02 PM Dictation Location: [place] [address] Assessment/Plan (1) Lumbar spinal stenosis: Code(s): M48.061 - Spinal stenosis, lumbar region without neurogenic claudication Status: Acute (2) Foot drop, right: Code(s): M21.371 - Foot drop, right foot Status: Acute Plan Patient is an 81-year-old female with medical history of atrial fibrillation on Eliquis, diabetes mellitus type 2, hypertension, hyperlipidemia. In addition she has a history of significant spinal stenosis and was scheduled to undergo surgical intervention on 03/17/2022 which was canceled for extenuating circumstances. Patient developed right foot drop approximately 1 week ago. She did have a fall in the bathroom with acute worsening of her foot drop over the last couple of days. Patient has absent dorsiflexion, extension, inversion, andeversion consistent with L4-5 L5-S1 distribution in the right lower extremity. She has back pain described as burning and tingling sensation with radiation from her back into her groin and down her right leg more than the left which is notnew but persistent. Again this is consistent with her degenerative spine disease. I do not get the sense that there is a new neurological process that would require evaluation at this time. She recently had MRI of her lumbar spinein February at the [facility] which is available for review. She was exceptedat the [facility] and we are awaiting a bed. 1. MRI of the lumbar spine from [facility] reviewed. Awaiting a bed assignment at [facility]. I will defer further work-up to the accepting team at that facility. 2. Diabetes mellitus type 2. Glucose 351. Primary team will manage 3. LFTs normal 4. Cardiac troponin normal 5. Urinalysis normal 6. COVID-19 negative 7. PT/OT. May need AFO. 8. Further recommendations to follow based on patient's clinical course. If foot drop persist in the future we can consider EMG. Attestation Statement I agree with the above. Patient seen and examined. Images from an outside hospital that were uploaded into PACS were personally reviewed. Severe lumbar spondylosis. Multilevel central canal stenosis from L3-4 to L5-S1, partly because of bulging disks and partly because of intruding posterior elements into the central canal. Exam reveals dorsiflexion paralysis of the right lower extremity as well as inversion and eversion severe weakness. I suspect the etiology represents a L5 (or maybe L4) motor radiculopathy. Less likely common peroneal nerve. She was slated to have lumbar surgery here; now awaiting transfer. No other recommendations. Documented By: JH Latif [id number] Signed By: <Electronically signed by JH Crocker> 03/24/22 1117 <Electronically signed by Colby Astorga DO> 03/24/224 [facility] Work Phone: 1([phone]) 371-317706-16-2022 Progress note Author Rupert Anthony [facility] March 24, 2022 5:12pm Note Date/Time March 24, 2022 5:12 pm [facility] [address] [place] [address] Progress Note Signed Patient: Saeed Sarabia MR#: [id number] : 1940 Acct:[id number] Age/Sex: 81 / F Adm Date: 2 Loc: Room: [address] [place] [address] Type : ADM INOo Attending Dr: Rupert Anthony MD Copies to: ~ Date of Service: 03/24/2022 Progress Narrative Note PROGRESS NOTE Progress Note: Patient admitted last night for right foot drop. Patient has been accepted to [facility] by neurosurgery and is awaiting bed. Patient denies any pain in her right leg at this time. Continue current management. Neurology and neurosurgery has been consulted. Documented By: Rupert Anthony MD 03/24/221710 Signed By: <Electronically signed by Rupert Anthony MD> 03/24/221711 [facility] Work Phone: 1([phone]) 481-228206-16-2022 History and physical note Author Perlita Gautam [facility] March 24, 2022 4:44am Note Date/Time March 24, 2022 4:24 am [facility] [address] [place] [address] Hospitalist H&P Signed Patient: Saeed Sarabia MR#: [id number] : 1940 Acct:[id number] Age/Sex: 81 / F Adm Date: 2 Loc: Room: [address] [place] [address] Type : ADM IN Attending Dr: Perlita Braxton MD Copies to: MD Sarai Martin APRN Lisa J Aichholz, NP-C~ HPI DATE OF EXAMINATION: 03/24/22 CHIEF COMPLAINT: Right foot drop HISTORY OF PRESENT ILLNESS: Patient is a 81-year-old female with a PMX of atrial fibrillation on Eliquis, diabetes, hypertension, hyperlipidemia, spinal stenosis who presents to the ER with left foot drop. Onset of symptoms was 3 days ago, she states associated symptoms of numbness, tinglingand a burning sensation all the way up her leg allthe way up to the groin area and rectum. She reports that the numbness around her groin area has somewhat improved. She denies having loss of bowel and bladder control. Patient was scheduled to have back surgery on 03/17/2022 but wasunable to cancel. Patient denies any trauma. She dchest pain or palpitation. No cough, dyspnea, or pain with inspiration. No abdominal pain or indigestion,constipation or diarrhea, nausea or vomiting. No dysuria or retention. No headache or dizziness. No fevers Upon arrival to the ER, EKG showed normal sinus rhythm heart rate 70 bpm. Chest x-ray with no acute cardiopulmonary. Knee x-ray shows no acute bony injury. WBCunremarkable. Patient was administered dexamethasone 16 mg. Patient will be admitted by hospitalist team for further evaluation and treatment. Review of Systems Review of Systems Review of systems: Point review of systems obtained negative unless noted in HPI or below [facility] Vaccinated for COVID-19?: Yes Medical History Arthritis Atrial fibrillation CAD (coronary artery disease) Diabetes GERD (gastroesophageal reflux disease) Hematoma following angiography History of cardioversion 2011 (w/RODRIGUEZ), 2015 Hyperlipidemia Hypertension Mitral valve regurgitation Surgical History History of cardiac cath x 2 History of evacuation of hematoma History of PTCA 2005 No pertinent past surgical history Family History Father Heart attack CAD (coronary artery disease) Mother Heart attack CAD (coronary artery disease) Daughter Multiple sclerosis Social History Smoking Status: Never smoker Substance Use Type: None Meds Medications and Allergies Allergies No Known Allergies Allergy (Verified 03/23/22 15:37) Home Medications apixaban 5 mg tablet (Eliquis) 5 mg PO BID 03/09/22 [History Confirmed 03/23/22] bumetanide 1 mg tablet 0.5 - 1 mg PO DAILY PRN 03/09/22 [History Confirmed 03/23/22] celecoxib 200 mg capsule 200 mg PO DAILY PRN 03/09/22 [History Confirmed 03/23/22] ezetimibe 10 mg tablet 10 mg PO DAILY 03/09/22 [History Confirmed 03/23/22] gabapentin 100 mg capsule 100 mg PO TID PRN 03/09/22 [History Confirmed 03/23/22] glipizide 5 mg tablet 5 mg PO BID 03/09/22 [History Confirmed 03/23/22] lisinopril 5 mg tablet 5 mg PO DAILY 03/09/22 [History Confirmed 03/23/22] metformin 1,000 mg tablet 1,000 mg PO BID 03/09/22 [History Confirmed 03/23/22] metoprolol succinate 100 mg tablet,extended release 24 hr 100 mg PO DAILY 03/09/22 [History Confirmed 03/23/22] rosuvastatin 5 mg tablet 5 mg PO DAILY 03/09/22 [History Confirmed 03/23/22] spironolactone 25 mg tablet 12.5 mg PO DAILY 03/09/22 [History Confirmed 03/23/22] tizanidine 4 mg tablet 2 mg PO HS PRN 03/09/22 [History Confirmed 03/23/22] tizanidine 4 mg tablet 4 mg PO HS PRN 03/09/22 [History Confirmed 03/23/22] Exam Physical Exam Vital Signs: Temp Pulse Resp BP Pulse Ox 97.8 F 113 H 21 162/77 H 93 L 03/24/22 04:00 03/24/22 04:00 03/24/22 04:00 03/24/22 04:00 03/24/22 04:00 Narrative: CONST- Appears well -developed and well nourished No acute distress. HEAD - Normocephalic and atraumatic EENT-Sclera nonicteric and conjunctive are nonerythemic, moist oral mucosa, pharynx clear NECK-Supple, no cervical lymphadenopathy CARDIAC-normal rate, regular rhythm, normal S1 & S2. PULM-diminished without wheeze or rhonchi, RA, no accessory muscle use or cough noted ABD - Soft. Bowel sounds are normal. No distention No tenderness EXTREM-no edema BLE calves nontender. Right foot drop SKIN- W/D good turgor MS- MAEX4 spontaneously with equal with equal strength NEURO- A&Ox3 speech clear and tongue midline, equal facial symmetry no focal motor deficits PSYCH-Mood, affect and behavior appropriate Results Lab Results Labs: Laboratory Last Values Corrected WBC 8.6 X10E3/uL (3.8-11.6) 03/23/22 19:25 Uncorrected WBC Count 8.6 x10E3/uL (4.5-11.0) 03/23/22: RBC 4.77 x10E6/uL (3.60-5.00) 03/23/22 19:25 Hgb 14.3 g/dL (11.8-15.4) 03/23/22 19: Hct 43.4 % (34.0-46.4) 03/23/22 19: MCV 91.0 fl (80-100) 03/23/22 19:25 MCH 29.9 pg (24.7-34.3) 03/23/22 19: MCHC 32.9 g/dL (32.0-35.0) 03/23/22: RDW 13.8 % (11.9-15.3) 03/23/22 19:25 Plt Count 295 x10E3/uL (150-450) 03/23/22 19: MPV 7.8 fl (6.3-10.7) 03/23/22 19: Neut % (Auto) 49.2 % (.) 03/23/22: Lymph % (Auto) 38.7 % (.) 03/23/22 19: Eagle % (Auto) 9.2 % (.) 03/23/22 19: Eos % (Auto) 2.3 % (.) 03/23/22:25 Baso % (Auto) 0.6 % (.) 03/23/22 19:25 Neut # (Auto) 4.2 x10E3/uL (1.8-7.7) 03/23/22 19:25 Lymph # (Auto) 3.3 x10E3/uL (1.00-4.8) 03/23/22 19:25 Eagle # (Auto) 0.8 x10E3/uL (0.0-0.8) 03/23/22:25 Eos # (Auto) 0.2 x10E3/uL (0.0-0.45) 03/23/22 19:25 Baso # (Auto) 0.1 x10E3/uL (0.0-0.2) 03/23/22 19: Nucleated RBC % (auto) 0.0 % (0-0.5) 03/23/22: PT 15.7 Seconds (9.0-12.9) H 03/23/22 19:25 INR 1.4 03/23/22: APTT 32.2 Seconds (25.1-36.5) 03/23/22 19:25 PHA Creatinine Clear 46.80 03/23/22 19:25 Sodium 141 mmol/L (136-146) 03/23/22 19:25 Potassium 4.4 mmol/L (3.5-5.1) 03/23/22 19: Chloride 103 mmol/L (95-114) 03/23/22 19:25 Carbon Dioxide 27.4 mmol/L (22.0-30.0) 03/23/22 19:25 BUN 24 mg/dL (9-23) H 03/23/22 19:25 Creatinine 0.92 mg/dL (0.44-1.03) 03/23/22 19:25 Est GFR ( Amer) > 60 mL/Min 03/23/22 19:25 Est GFR (Non-Af Amer) 59 mL/Min 03/23/22 19:25 Glucose 114 mg/dL (70-100) H 03/23/22 19:25 Calcium 9.6 mg/dL (8.2-10.2) 03/23/22 19:25 Total Bilirubin 0.6 mg/dL (0.3-1.2) 03/23/22 19:25 AST 22 U/L (10-42) 03/23/22 19:25 ALT 18 U/L (10-60) 03/23/22 19:25 Alkaline Phosphatase 48 U/L (32-92) 03/23/22 19:25 Troponin I High Sens 6 pg/mL (0-15) 03/23/22 19:25 Total Protein 6.8 gm/dL (6.1-7.9) 03/23/22: Albumin 3.6 gm/dL (3.2-5.5) 03/23/22:25 Globulin 3.2 gm/dL 03/23/22: Albumin/Globulin Ratio 1.1 03/23/22 19:25 Urine Color Yellow (Yellow) 03/23/22 19:45 Urine Appearance Clear (Clear) 03/23/22 19:45 Urine pH 7.5 (5.0-9.0) 03/23/22 19:45 Ur Specific [place] 1.017 (1.001-1.030) 03/23/22 19:45 Urine Protein Negative mg/dL (Negative) 03/23/22 19:45 Urine Glucose (UA) Normal mg/dL (Normal) 03/23/22 19:45 Urine Ketones Trace (Negative) H 03/23/22 19:45 Urine Occult Blood Negative (Negative) 03/23/22 19:45 Urine Nitrite Negative (Negative) 03/23/22 19:45 Urine Bilirubin Negative (Negative) 03/23/22 19:45 Urine Urobilinogen Normal mg/dL (Normal) 03/23/22 19:45 Ur Leukocyte Esterase Negative (Negative) 03/23/22 19:45 COVID-19 PCR Interp N/A 03/24/22 03:05 SARS Antigen (LFIA) Negative (Negative) 03/23/22 19:25 Microbiology Results Micro: Microbiology - Results from entire visit 03/23/22 19:25 Nasal SARS Antigen (LFIA) - Final A&P - Hospitalist Assessment/Plan (1) Lumbar spinal stenosis: (2) Foot drop, right: Plan Lumbar spinal stenosis/right foot drop-presents with worsening foot drop since since 3 days ago with tingling, burning sensation and numbness all the way up tothe groin area. Reports slight improvement of numbness around the groin area, denies losing bowel or bladder control. She was scheduled to have surgery for the severe spinal stenosis on 03/17/[address] Berkowitz but was however canceled. ?Right knee x-ray negative for acute injury ?Patient was administered dexamethasone in ED ?ER physician spoke with Dr. Shirley at [facility] neurosurgery who accepted patient and is pending bed availability. According to ER physician conversationwith Dr. Cruz there was no concerns for Julian monsalve at this point. ?MRI from [facility] pending availability, showing L4-L5 severe stenosis with possible synovial cyst ?Consult neurosurgery Chronic conditions: Atrial fibrillation-we will hold Eliquis at this point due to possible surgery Type 2 diabetes/hypertension?we will resume home medications CODE STATUS: Full code DVT prophylaxis: SCDs Attending Provider Attestation Attending Physician Attestation: I personally saw this patient on the day of the encounter, reviewed the history,performed the jacobs elements of the exam, formulated the plan of care and confirmed the resident's/help desk intern/medical student's dictation/written note. Documented By: Sarai Singletary APRN 03/24/22 0407 Signed By: <Electronically signed by OMID Singletary> 03/24/22 0438 <Electronically signed by Perlita Braxton MD> 03/24/[address] [facility] Work Phone: 1([phone]) 782-919806-15-2022 Evaluation note* Encounter Date Diagnosis Assessment Notes Treatment Notes Treatment Clinical Notes Mar, Right foot drop (ICD-10 - M21.371) Patient was referred to the emergency room for emergency evaluation in anticipation of probably being transferred to a tertiary center. Mar, Spinal stenosis, lumbar region with neurogenic claudication (ICD-10 - M48.062) [employer] Other evaluation noteNo assessment information available [facility] Work Phone: Evaluation note* Diagnosis Onset Date Resolution Status Foot drop, right acute Lumbar spinal stenosis acute [facility] Work Phone: Evaluation note* Diagnosis Onset Date Resolution Status Foot drop, right acute Lumbar spinal stenosis acute Atrial fibrillation acute Diabetes acute Foot drop, right acute Hyperlipidemia acute Hypertension acute Impaired mobility and activities of daily living acute S/P lumbar laminectomy acute [facility] Work Phone: Evaluation note* Diagnosis Spinal stenosis of lumbar region, unspecified whether neurogenic claudication present- [facility] the chronically ill note* Diagnosis Spinal stenosis of lumbar region, unspecified whether neurogenic claudication present- Primary Right leg weakness Other musculoskeletal symptoms referable to limbs [facility] Diagnosis Acquired talipes equinovalgus of right foot- Primary Foot drop, right foot [facility] Diagnosis Foot drop, right foot- Primary documented in this encounter [facility] general Narrative - Reported* Type Description Date Medical History hypertension Medical History diabetes mallitus Medical History hypercholesterolemia Medical History mitral valve regurgitation Medical History Heart Failure/Diastolic Surgical History blood clot Hospitalization History See Above [facility] Other Chief Complaint and Reason for Visit Chief Complaint z78.0 Chief Complaint z78.0 Stenosis Chief Complaint z78.0 Stenosis drop foot right side Reason for Visit Foot drop, right Lumbar spinal stenosis Chief Complaint z78.0 Stenosis drop foot right side lumbar stenosis s/p decompressive lami L2-5 Reason for Visit Foot drop, right Lumbar spinal stenosis Atrial fibrillation Diabetes Foot drop, right Hyperlipidemia Hypertension Impaired mobility and activities of daily living S/P lumbar laminectomy Chief Complaint Stenosis drop foot right side lumbar stenosis s/p decompressive lami L2-5 Reason for Visit Foot drop, right Lumbar spinal stenosis Atrial fibrillation Diabetes Foot drop, right Hyperlipidemia Hypertension Impaired mobility and activities of daily living S/P lumbar laminectomy Advance Directives No Advanced Directives Records Found Advance Directive Response Recorded Date/ Time Advance Directives No February 25 11:14am Documents on File Type Date 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 Advance Directive(s) 03/29/2022 8:42 PM Latest Code Status on File Code Status Date Activated Date Inactivated Comments Full Code 03/28/2022 5:55 PM 04/07/2022 4:54 PM Full Code Order Discussed With: Patient Family History No Family History Records Found Relationship Condition Age at Onset Recorded Date/T danis father Myocardial infarction Unknown Coronary artery disease Unknown Not Specified Myocardial infarction Unknown daughter Multiple sclerosis Unknown Summary Purpose Additional Source Comments Care Teams (unrecognized sec tion and content) Team Status: Inactive Member Role Status Dates Glenroy Vera MD Attending Provider Active NON STAFF Primary Care Provider Active Team Status: Active Member Role Status Dates NON STAFF Primary Care Provider Active Team Status: Inactive Member Role Status Dates NON STAFF Primary Care Provider Active Glenroy Vera MD Attending Provider Active Team Status: Active Member Role Status Dates Howard Rivera , DO Emergency Provider Active [facility] Primary Care Provider Active Perlita Braxton MD Admit Provider, Attending Kamari mooney Active Team Status: Active Member Role Status Dates [facility] Primary Care Provider Active Team Status: Inactive Member Role Status Dates Howard Rivera , DO Emergency Provider Active [facility] Primary Care Provider Active Perlita Braxton MD Admit Provider Active Colby Astorga , DO Other Provider Active Rupert Anthony MD Attending Provider Active Team Status: Inactive Member Role Status Dates [facility] Primary Care Provider Active Kingston Gao MD Admit Provider, Attending Provider A ctive Dinah Dowling , ELFEGO Other Provider Active Rachna Wintson , ELFEGO Other Provider Active Giselle Wahl , ELFEGO Other Provider Active Gloria Moise , ELFEGO Other Provider Active Lucia Marc , ELFEGO Other Provider Active Courtney Campbell , ELFEGO Other Provider Active Cindy Buck , RN Other Provider Active Cyndee Aguirre MD Other Provider Active Shadi Chahal MD Other Provider Active Kirstin Lorenz APRN Other Provider Active Shelby Landrum DO Other Provider Active Kieran Scott MD Other Provider Active Jayesh Clark , DO Other Provider Active Justyn Spann MD Other Provider Active Mayra Saha MD Other Provider Active Selma Barkley , ANP-BC Other Provider Active Lizette Pickard MD Other Provider Active Poli Collins MD Other Provider Active Andrea Muñoz MD Other Provider Active Jay Barrientos MD Other Provider Active Maykel Vila , DO Other Provider Active Sid Patel MD Other Provider Active Abilio Shafer MD Other Provider Active Gladys Cash MD Other Provider Active Dwight Kelley MD Other Provider Active Debbie Avalos , MODELING TEACHER-C Other Provider Active Saulo Dukes MD Other Provider Active Abel Oglesby MD Other Provider Active Jesu Mcmanus MD Other Provider Active Ann-Marie Mustafa MD Other Provider Active Rupert Anthony MD Other Provider Active Sandeep Hillman MD Other Provider Active Letty Ramsey , DO Other Provider Active Perlita Braxton MD Other Provider Active Jr Zayas , DO Other Provider Active Adis Rouse , DO Other Provider Active Sarai Singletary APRN Other Provider Active Cm Zarco , DO Other Provider Active Rik Davis MD Other Provider Active Lexie Hudson RN Other Provider Active Team Status: Inactive Member Role Status Dates Glenroy Vera MD Attending Provider Active Kirstin Miller Primary Care Provider Active Goals (unrecognized section and content) Goals may be documented in a n alternate sectionGoals may be documented in an alternate sectionGoals may be documented in an alternate sectionNo Information REASON FOR VISIT (unrecogniz ed section and content) Reason Comments Other home health orders r equested Reason Comments Forms [facility] ter Reason Comments Forms Reason Comments Other [facility] Plan of Ca re 04/17/22 - 06/15/22 Reason Comments General [facility] Reason Comments Post-Op Visit Reason Comments Forms Physician Orders ([place]) - [facility] Reason Comments Forms Other Discharge Physician Orders Reason Comments Other Physical Therapy Rec ertification Note Reason Comments Received Outside Medical Records [facility] INFORMATION SOURCE (unrecogn ized section and content) DATE CREATED AUTHOR 04/06/2022 [facility] DATE CREATED AUTHOR AUTHOR'S ORGANIZ ATION 09/08/2022 [facility] DATE CREATED AUTHOR AUTHOR'S ORGANIZ ATION 09/15/2022 [facility] DATE CREATED AUTHOR AUTHOR'S ORGANIZ ATION 11/12/2022 [facility] DATE CREATED AUTHOR AUTHOR'S ORGANIZ ATION 02/04/2024 [facility] Source Comments (unrecognize d section and content) In the event this informatio n is protected by the Federal Confidentiality of Alcohol and Drug Abuse Patient Records regulations: The Federal rules restrict any use of the information to criminally investigate or prosecute any alcohol or drug abuse patient.[facility] the event this information is protected by the Federal Confidentiality of Alcohol and Drug Abuse Patient Records regulations: The Federal rules restrict any use of the information to criminally investigate or prosecute any alcohol or drug abuse patient.[facility] the event this information is protected by the Federal Confidentiality of Alcohol and Drug Abuse Patient Records regulations: The Federal rules restrict any use of the information to criminally investigate or prosecute any alcohol or drug abuse patient.[facility] the event this information is protected by the Federal Confidentiality of Alcohol and Drug Abuse Patient Records regulations: The Federal rules restrict any use of the information to criminally investigate or prosecute any alcohol or drug abuse patient.[facility] the event this information is protected by the Federal Confidentiality of Alcohol and Drug Abuse Patient Records regulations: The Federal rules restrict any use of the information to criminally investigate or prosecute any alcohol or drug abuse patient.[facility] the event this information is protected by the Federal Confidentiality of Alcohol and Drug Abuse Patient Records regulations: The Federal rules restrict any use of the information to criminally investigate or prosecute any alcohol or drug abuse patient.[facility] the event this information is protected by the Federal Confidentiality of Alcohol and Drug Abuse Patient Records regulations: The Federal rules restrict any use of the information to criminally investigate or prosecute any alcohol or drug abuse patient.[facility] the event this information is protected by the Federal Confidentiality of Alcohol and Drug Abuse Patient Records regulations: The Federal rules restrict any use of the information to criminally investigate or prosecute any alcohol or drug abuse patient.[facility] the event this information is protected by the Federal Confidentiality of Alcohol and Drug Abuse Patient Records regulations: The Federal rules restrict any use of the information to criminally investigate or prosecute any alcohol or drug abuse patient.[facility] the event this information is protected by the Federal Confidentiality of Alcohol and Drug Abuse Patient Records regulations: The Federal rules restrict any use of the information to criminally investigate or prosecute any alcohol or drug abuse patient.[facility] the event this information is protected by the Federal Confidentiality of Alcohol and Drug Abuse Patient Records regulations: The Federal rules restrict any use of the information to criminally investigate or prosecute any alcohol or drug abuse patient.[facility] the event this information is protected by the Federal Confidentiality of Alcohol and Drug Abuse Patient Records regulations: The Federal rules restrict any use of the information to criminally investigate or prosecute any alcohol or drug abuse patient.[facility] FOR RECORDS PERTAINING TO PATIENTS WHO ARE OR HAVE BEEN ENROLLED IN A CHEMICAL DEPENDENCY/SUBSTANCEABUSE PROGRAM, SOME INFORMATION MAY BE OMITTED. This clinical summary was aggregated from multiple sources. Caution should be exercised in using it in the provision of clinical care. This summary normalizes information from multiple sources, and as a consequence, information in this document may materially change the coding, format and clinical context of patient data. In addition, data may be omitted in some cases. CLINICAL DECISIONS SHOULD BE BASED ON THE PRIMARY CLINICAL RECORDS. [facility], [facility]. provides no warranty or guarantee of the accuracy or completeness of information in this document.
--- NOTE | 2024-02-15 08:00 | CA_ITS ---
Patient Name: SAEED JOHNSON MR#: [id number] : 1940 Exam Date: 02/15/2024 Ordering Doctor: DR MONI ROBERSON M.D. ECHOCARDIOGRAM REPORT PROCEDURE: CA ECHO DOPPLER COMPLETE INDICATIONS: Diastolic heart failure, hypertension, diabetes COMPARISON: None. DESCRIPTION: COMPLETE ECHOCARDIOGRAM Real-time transthoracic echocardiography with 2D, M-mode, spectral and color flow Doppler performed. QUALITY: Technical quality was good. 66 , 160#, BSA 1.82 m2, BP 148/86 LEFT VENTRICLE: Normal chamber size. Mild concentric left ventricular hypertrophy. Normal systolic function. LV EF: Normal left ventricular ejection fraction, (>55%). DIASTOLIC: Diastolic function is indeterminate. ATRIAL SEPTUM: Visually appears intact. LEFT ATRIUM: Moderate dilatation. RIGHT ATRIUM: Mild dilatation. RIGHT VENTRICLE: Normal chamber size. Normal right ventricular systolic function. TRICUSPID VALVE: Normal mobility and thickness. No stenosis with trivial regurgitation. No evidence of pulmonary hypertension. RVSP 30 mmHg MITRAL VALVE: Normal mobility and thickness. No evidence of mitral valve stenosis. Mild mitral annular calcification. Trivial mitral regurgitation. AORTIC VALVE: Normal trileaflet appearance. Mildly calcified aortic valve. Normal leaflet mobility. No evidence of aortic valve stenosis. No aortic regurgitation. AORTIC ROOT: Normal diameter and appearance. Ascending aorta is normal in size. PULMONIC VALVE: Normal thickness and mobility. No stenosis. Trivial regurgitation. PERICARDIUM: No evidence of pericardial effusion. IVC: Collapses with inspirations. IVC is normal in size. PLEURA: CONCLUSION: 1. Mild concentric left ventricular hypertrophy with normal systolic function. LVEF is 55-60%. 2. Normal right ventricular size and systolic function. 3. No significant valvular dysfunction. 4. Normal right sided pressures. 5. Mild to moderate biatrial dilatation. Adult Echocardiography Procedure Report Left Ventricle LVEDD (3.7 - 5.6 cm): 4.68 cm LVESD (2.2 - 4.0 cm): 3.63 cm LVIVS thickness (0.6 - 1.2 cm): 1.09 cm LVPW thickness (0.5 - 1.0 cm): 1.08 cm e': 0.07 m/s E - e': 10.52 LVOT Max Gradient: 4.78 mm[Hg] LVOT Area (cm2): 1.09 m/s Peak Velocity (LVOT): 1.09 m/s Mean Velocity (LVOT): 0.69 m/s LVOT Diameter 2.14 cm Left Atrium LA Volume Index (2D A2C): 42.18 ml/m2 Left Atrium Systolic Dimension: 3.97 cm Mitral Valve MV E to A Ratio: 0.64 Mitral Valve A-Wave Peak Velocity: 1.08 m/s Mitral Valve E-Wave Peak Velocity: 0.70 m/s Right Ventricle Aorta AO Root Diam: 2.92 cm Ascending Ao Diam: 3.02 cm Aortic Valve AoV Area (Peak Gianni): 2.53 cm2, 2.57 cm2 AoV Area (VTI): 2.49 cm2, 2.51 cm2 Peak Velocity(Antegrade Flow): 1.53 m/s, 1.55 m/s Peak Gradient(Antegrade Flow): 9.33 mm[Hg], 9.64 mm[Hg] Mean Velocity(Antegrade Flow): 1.07 m/s, 1.09 m/s Mean Gradient(Antegrade Flow): 5.27 mm[Hg], 5.41 mm[Hg] Velocity Time Integral: 40.31 cm, 40.74 cm Tricuspid Valve Peak Velocity (Regurgitant Flow): 2.58 m/s Pulmonic Valve Peak Velocity: 0.79 m/s Peak Gradient: 2.50 mm[Hg] Right Atrium Right Atrium Systolic Pressure: 39.72 ml, 39.72 ml Dictated by: Moni Roberson M.D. on 02/15/2024 at 17:44 Approved by: Moni Roberson M.D. on 02/15/2024 at 17:50
== END 2024-02-15 07:36 | disposition home or self-care (01) ==
LOC: CARD 07:36
PROVIDERS: PCP Nurse Practitioner; Visit Provider Internal Medicine Interventional Cardiology
DX: I25.10 Atherosclerotic heart disease of native coronary artery without angina pectoris (principal); I50.32 Chronic diastolic (congestive) heart failure; I48.0 Paroxysmal atrial fibrillation
CPT/HCPCS: 93306

== ENCOUNTER 2024-02-26 07:53 | Outpatient (OUT) | payer MEDICARE, SELFPAY ==
[2024-02-26 08:34] LABS: Basophils Percent Auto 0.4 % (0.2-2.0); Eosinophils Absolute Auto 0.2 10^3/uL (0.0-0.7); Eosinophils Percent Auto 2.2 % (0.9-7.0); Hematocrit 41.9 % (36.0-48.0); Hemoglobin 12.9 g/dL (12.0-16.0); Immature Granulocytes Abs Auto 0.01 10^3/uL (0.00-0.03); Immature Granulocytes Pct Auto 0.1 % (0.0-0.5); Lymphocytes Absolute Auto 2.8 10^3/uL (1.2-3.8); Lymphocytes Percent Auto 40.7 % (20.5-60.0); Mean Corpuscular HGB Conc 30.8 g/dL (29.9-35.2); Mean Corpuscular Hemoglobin 29.8 pg (26.7-34.0); Mean Corpuscular Volume 96.8 fL (81.0-99.0); Mean Platelet Volume 9.6 fL (9.5-13.5); Monocytes Absolute Auto 0.6 10^3/uL (0.3-0.8); Monocytes Percent Auto 8.8 % (1.7-12.0); Neutrophils Absolute Auto 3.2 10^3/uL (1.4-6.5); Neutrophils Percent Auto 47.8 % (43.0-75.0); Platelet Count 262 10^3/uL (150-450); Red Blood Count 4.33 10^6/uL (4.20-5.40); Red Cell Distribution Width 13.2 % (11.0-15.0); White Blood Count 6.8 10^3/uL (4.0-11.0)
[2024-02-26 09:52] LABS: Alanine Aminotransferase 19 U/L (14-59); Albumin Globulin Ratio 0.9; Albumin Level 3.4 g/dL (3.4-5.0); Alkaline Phosphatase 56 U/L (46-116); Anion Gap 13.1; Aspartate Amino Transferase 15 U/L (15-37); BUN Creatinine Ratio 21.8; Bilirubin Total 0.6 mg/dL (0.2-1.0); Calcium 9.5 mg/dL (8.5-10.1); Carbon Dioxide 28.4 mmol/L (21.0-32.0); Chloride 105 mmol/L (98-107); Chol HDL Ratio 2.3; Cholesterol 136 mg/dL (<=200); Estimated GFR (African America >60 (>=60); Estimated GFR (Non-African Ame >60 (>=60); Globulin 3.6 g/dL; Glucose 109 mg/dL (74-106); HDL Cholesterol 59 mg/dL (40-60); Potassium 4.5 mmol/L (3.5-5.1); Sodium 142 mmol/L (136-145); Thyroid Stimulating Hormone 0.082 uIU/mL (0.358-3.740); Triglycerides 110 mg/dL (<=150)
[2024-02-26 09:54] LABS: Free T4 1.21 ng/dL (0.76-1.46)
[2024-02-26 11:38] LABS: Estimated Average Glucose 123 mg/dL; Glycohemoglobin A1C 5.9 % (4.5-6.2)
[2024-02-26 12:47] LABS: Creatinine Urine Random 42.88 mg/dL (20.00-300.00); Microalbum Creatinine Ratio Ur 46.6 mg/g (0.0-29.9)
[2024-02-26 12:53] LABS: Bilirubin Urine NEGATIVE (NEGATIVE); Blood Urine NEGATIVE (NEGATIVE); Clarity Urine CLEAR (CLEAR); Color Urine LT. YELLOW (YELLOW); Glucose Urine UA NEGATIVE (NEGATIVE); Ketones Urine NEGATIVE (NEGATIVE); Leukocyte Esterase Urine NEGATIVE (NEGATIVE); Nitrite Urine NEGATIVE (NEGATIVE); Protein Urine NEGATIVE (NEG/TRACE); Urobilinogen Urine 0.2 EU/dL (0.2-1.0); pH Urine 6.5 (5.0-9.0)
[2024-02-26 13:04] LABS: Urine Microscopic Indicated NO
== END 2024-02-26 07:54 | disposition home or self-care (01) ==
PROVIDERS: PCP Nurse Practitioner; Visit Provider Nurse Practitioner
DX: E78.2 Mixed hyperlipidemia (principal); I10 Essential (primary) hypertension; I48.20 Chronic atrial fibrillation, unspecified; E11.9 Type 2 diabetes mellitus without complications; R79.89 Other specified abnormal findings of blood chemistry
CPT/HCPCS: 36415; 80053; 80061; 81003; 82043; 82570; 83036; 84439; 84443; 85025

== ENCOUNTER 2024-08-20 10:13 | Outpatient (OUT) | payer MEDICARE, SELFPAY ==
[2024-08-20 11:07] LABS: Basophils Percent Auto 0.3 % (0.2-2.0); Eosinophils Absolute Auto 0.1 10^3/uL (0.0-0.7); Eosinophils Percent Auto 0.7 % (0.9-7.0); Hemoglobin 12.5 g/dL (12.0-16.0); Immature Granulocytes Abs Auto 0.01 10^3/uL (0.00-0.03); Immature Granulocytes Pct Auto 0.1 % (0.0-0.5); Lymphocytes Absolute Auto 2.1 10^3/uL (1.2-3.8); Lymphocytes Percent Auto 31.5 % (20.5-60.0); Mean Corpuscular HGB Conc 31.3 g/dL (29.9-35.2); Mean Corpuscular Volume 95.9 fL (81.0-99.0); Mean Platelet Volume 9.9 fL (9.5-13.5); Monocytes Absolute Auto 0.6 10^3/uL (0.3-0.8); Monocytes Percent Auto 8.5 % (1.7-12.0); Neutrophils Absolute Auto 3.9 10^3/uL (1.4-6.5); Neutrophils Percent Auto 58.9 % (43.0-75.0); Platelet Count 263 10^3/uL (150-450); Red Blood Count 4.17 10^6/uL (4.20-5.40); Red Cell Distribution Width 13.6 % (11.0-15.0); White Blood Count 6.7 10^3/uL (4.0-11.0)
[2024-08-20 11:45] LABS: Anion Gap 15.7; BUN Creatinine Ratio 16.5; Calcium 9.5 mg/dL (8.5-10.1); Carbon Dioxide 27.8 mmol/L (21.0-32.0); Chloride 108 mmol/L (98-107); Estimated GFR (African America >60 (>=60 mL/min/1.73m^2); Estimated GFR (Non-African Ame >60 (>=60 mL/min/1.73m^2); Glucose 118 mg/dL (74-106); Potassium 4.5 mmol/L (3.5-5.1); Sodium 147 mmol/L (136-145)
== END 2024-08-20 10:14 | disposition home or self-care (01) ==
LOC: LAB 10:16
PROVIDERS: PCP Nurse Practitioner; Visit Provider Nurse Practitioner
DX: I48.20 Chronic atrial fibrillation, unspecified (principal); E11.9 Type 2 diabetes mellitus without complications; D68.69 Other thrombophilia
CPT/HCPCS: 36415; 80048; 85025

== ENCOUNTER 2024-08-29 09:26 | Outpatient (OUT) | payer MEDICARE, SELFPAY ==
--- OUTSIDE RECORDS SUMMARY | 2024-08-29 09:51 | XMS_ITS | CCD ---
Author Organization [facility] Inform ion Partnership [facility] Care Team Providers Care Board Catcher Name Role Phone MD Glenroy Vera Attending Provider [phone] NON STAFF Primary Care Provider DO Howard Alejo Emergency Provider [phone] Kirstin Miller Primary Care Provider [phone] Al MD Perlita Pennington Admit Provider Al MD Perlita Pennington Attending Provider [phone] DO Colby Astorga Other Provider MD Rupert Anthony Attending Provider Glenroy Vera Unavailable CYNTHIA LINCOLN Attending Unavailable CYNTHIA LINCOLN Admitting Unavailable MD Kingston Gao Admit Provider MD Kingston Gao Attending Provider [phone] ELFEGO Dowling Other Provider Unavailable ELFEGO Winston Other Provider Unavailable ELFEGO Wahl Other Provider Unavailable ELFEGO Moise Other Provider Unavailable ELFEGO Marc Other Provider Unavailable ELFEGO Campbell Other Provider Unavailable ELFEGO Buck Other Provider Unavailable MD Cyndee Aguirre Other Provider MD Shadi Chahal Other Provider OMID Lorenz Other Provider DO Shelby Landrum Other Provider MD Kieran Scott Other Provider [phone] DO Jayesh Clark Other Provider MD Justyn Spann Other Provider MD Mayra Saha Other Provider Rubia, ANP-BC Selma Other Provider MD Lizette Pickard Other Provider MD Poli Collins Other Provider MD Andrea Muñoz Other Provider MD Jay Barrientos Other Provider DO Maykel Vila Other Provider Unavailable MD Sid Patel Other Provider MD Abilio Shafer Other Provider MD Gladys Cash Other Provider MD Dwight Kelley Other Provider Bailey, [employer] Debbie Pleitez Other Provider [phone] MD Saulo Dukes Other Provider MD Abel Oglesby Other Provider MD Jesu Mcmanus Other Provider Unavailable MD Ann-Marie Mustafa Other Provider MD Rupert Anthony Other Provider Dada Hillman MD Sandeep Other Provider DO Letty Ramsey Other Provider MD Perlita Davis Other Provider DO Jr Zayas Other Provider DO Adis Rouse Other Provider OMID Singletary Other Provider DO Cm Zarco Other Provider MD Rik Davis Other Provider ELFEGO Hudson Other Provider Unavailable Unavailable Primary Care Provider MD Glenroy Grace Attending Provider Aicmaria elena, Kirstin J Primary Care Provider Unavailable Primary Care Provider Unavailabl e Unavailable Primary Care Provider UnavailFANNIE [place] Referring Unavailable JUICE ESARS Attending Unavailable Josue SHIRLEY Admitting Unavailable JUICE SEARS Attending Unavailable JIN RIVERA Referring UnavailFANNIE [place] Referring Unavailable FANNIE BLANDON Referring Unavailable LUIZ ADAM Attending Unavailable AICHHOLZ, BULK FLUIDS HANDLER KIRSTIN Primary Care Unavailable DR SHEILA INIGUEZ V Consulting Unavailable AICHHOLZ, BULK FLUIDS HANDLER KIRSTIN Admitting Unavailable AICHHOLZ, BULK FLUIDS HANDLER KIRSTIN Attending Unavailable AICHHOLZ, BULK FLUIDS HANDLER KIRSTIN Consulting Unavailable AICHHOLZ, BULK FLUIDS HANDLER KIRSTIN Primary Care Unavailable AICHHOLZ, BULK FLUIDS HANDLER KIRSTIN Admitting Unavailable AICHHOLZ, BULK FLUIDS HANDLER KIRSTIN Attending Unavailable AICHHOLZ, BULK FLUIDS HANDLER KIRSTIN Consulting Unavailable AICHHOLZ, BULK FLUIDS HANDLER KIRSTIN Primary Care Unavailable AICHHOLZ, BULK FLUIDS HANDLER KIRSTIN Admitting Unavailable AICHHOLZ, BULK FLUIDS HANDLER KIRSTIN Attending Unavailable AICHHOLZ, BULK FLUIDS HANDLER KIRSTIN Primary Care Unavailable MISC, DR QUESADA Attending Unavailable MISCDR QUESADA Admitting Unavailable AICHHOLZ, BULK FLUIDS HANDLER KIRSTIN Primary Care Unavailable AICHHOLZ, BULK FLUIDS HANDLER KIRSTIN Admitting Unavailable AICHHOLZ, BULK FLUIDS HANDLER KIRSTIN Attending Unavailable AICHHOLZ, BULK FLUIDS HANDLER KIRSTIN Consulting Unavailable AICHHOLZ, BULK FLUIDS HANDLER KIRSTIN Primary Care Unavailable DR SHEILA INIGUEZ V Consulting Unavailable AICHHOLZ, BULK FLUIDS HANDLER KIRSTIN Admitting Unavailable AICHHOLZ, BULK FLUIDS HANDLER KIRSTIN Attending Unavailable AICHHOLZ, BULK FLUIDS HANDLER KIRSTIN Consulting Unavailable Glenroy Vera P Admitting Unavailable NON STAFF Primary Care Unavailable Glenroy Vera Attending Unavailable NON STAFF Primary Care Unavailable Glenroy Vera P Admitting Unavailable Glenroy Vera P Attending Unavailable Aichholz, Kirstin J Primary Care Unavailable Perlita Davsi Admitting Unavailab Rupert Joseph Attending Unavailable Colby Astorga Consulting Unavailable Aichholz, Kirstin J Primary Care Unavailable Kingston Gao Admitting Unavailable Kingston Gao Attending Unavailable Dinah Dowling Consulting Unavailable Rachna Winston Consulting Unavailable Giselle Wahl Consulting Unavailable Gloria Moise Consulting Unavailable Lucia Marc Consulting Unavailable Courtney Campbell Consulting Unavailable Cindy Buck Consulting Unavailable Cyndee Aguirre Consulting Unavailable TirsoShadi monroy Consulting Unavailable Kirstin Lorenz Consulting Unavailable Shelby [...] [place] Consulting Unavailable Adis Rouse Consulting Unavailable ObSarai gray Consulting Unavailable Cm Zarco Consulting Unavailable DaromaRik cowan M Consulting Unavailable Lexie Hudson Consulting Unavailable Kirstin Miller Primary Care Unavailable Glenroy Vera Attending Unavailable Glenroy Vera Admitting Unavailable EPHRAIM NAIR Attending Unavailable MONI ROBERSON Attending Unavailable Mike Steiner MD Primary Care Provider Paul [employer], Kirstin Unavailable KIRSTIN MILLER Attending Unavailable KIRSTIN MILLER Attending Unavailable Mike Steiner MD Primary Care Provider Medications Current Medications Medication Drug Class(es) Dates Sig (Normalized) Sig (Original) acetaminophen 500 mg oral tablet (14 sources) Start: 04-14-2022 take 500 mg by mouth every four hours Acetaminophen Active 500 MG PO Q4H 100 April 14, 2022 3:08pm Start: 04-04-2022 take [...] 4 mg/ml oral suspension (2 sources) Start: 2 take 1 mL by mouth every four hours Alum-Mag Hydroxide-Simeth (Mag-Al Plus) 200-200-20 mg/5 mL Suspension Active 30 ML PO Q4H 11 07April 14, 2022 3:08pm atorvastatin 40 mg oral tablet (2 sources) HMG-CoA Reductase Inhibitor Start: 2 take 40 mg by mouth once daily Atorvastatin Active 40 MG PO Daily April 14, 2022 3:08pm bumetanide 1 mg oral tablet (20 sources) Loop Diuretic Start: 4 take 1 tablet by mouth every twenty-four hours as needed bumetanide (Bumex) 1 MG tablet Take 1 mg by mouth Daily as needed (edema) 02/02/2024 Active Start: 03-09-2022 End: 04-14-2022 take 0.5-1 mg by mouth once daily Bumetanide Active 0.5 - 1 MG PO Daily April 14, 2022 12:00am Comment on above: Take 0.5-1 mg by [facility] once daily as needed (edema). cyclobenzaprine hydrochloride [...] 2022 12:00am take 1 capsule by mo [facility] every twenty-four hours Gabapentin 100 MG 1 capsule Orally Once a day Active Comment on above: Take 100 mg by mouth three times daily. glipiZIDE 5 mg oral tablet (20 sources) Sulfonylurea Start: End: 5 take 1 tablet by mouth in the morning glipiZIDE (Glucotrol) 5 MG tablet Indications: Type 2 diabetes mellitus without complications (CMS/HCC) Take 1 tablet (5 mg) by mouth in the morning and 1 tablet (5 mg) in the evening. Take before meals. 180 tablet 1 08/20/2024 11/18/2024 Active Start: 03-09-2022 End: 04-14-2022 take 5 mg by mouth twice daily at mealtime Glipizide Active 5 MG PO Twice daily with meals 60 April 14, 2022 12:00am Comment on above: Take 5 mg by mouth t wice daily before meals. lidocaine 0.04 mg/mg medicated patch (14 sources) Antiarrhythmic, Amide Local Anesthetic Start: 04-14-2022 apply 1 dose topically once daily Lidocaine (Lidocaine Pain Relief) 4 % Adhesive Patch,Medicated Active 2 PATCH TOPICAL Daily 60 April 14, 2022 3:08pm Start: 04-05-2022 lidocaine (OFE ONPAS) 4 % patch Apply 2 Patches as directed once daily. 0 04/05/2022 Active Comment on above: Apply 2 Patches as d irected once daily. lisinopril 20 mg oral tablet (20 sources) Angiotensin Converting Enzyme Inhibitor Start: 4 End: 5 take 1 tablet by mouth in the morning lisinopril 20 MG tablet Take 20 mg by mouth in the morning. 02/02/2024 02/01/2025 Active Start: 03-09-2022 End: 04-14-2022 take 5 mg by mouth once daily Lisinopril Active 5 MG P O Daily 30 April 14, 2022 12:00am Comment on above: Take 5 mg by mouth o nce daily. metFORMIN hydrochloride 1000 mg oral tablet (20 sources) Biguanide Start: 4 End: 5 take 1 tablet by mouth in the morning metFORMIN (Glucophage) 1000 MG tablet Indications: Type 2 diabetes mellitus without complications (CMS/HCC) Take 1 tablet (1,000 mg) by mouth in the morning and 1 tablet (1,000 mg) in the evening. Take with meals. 180 tablet 1 08/20/2024 11/18/2024 Active Start: 04-07-2022 take 1 tablet by papa th twice daily at mealtime metFORMIN (GLUCOPHAGE) 500 mg tablet Take 1 tablet by mouth twice daily with meals. 0 04/07/2022 Active Start: 03-09-2022 take 1000 mg by mout h twice daily Metformin Active 1000 MG PO Twice daily March 09, 2022 2:30pm Start: 03-09-2022 End: 04-14-2022 take 500 mg by mouth twice daily Metformin Discontinue d 500 MG PO Twice daily March 09, 2022 2:30pm April 14, 2022 3:13pm Comment on above: Take 1 tablet by papa th twice daily with meals. 24 hr metoprolol succinate 100 mg extended release oral tablet (20 sources) beta-Adrenergic Donna Start: 03-09-2022 End: 04-14-2022 take 100 mg by mouth once daily Metoprolol Succinate Active 100 MG PO Daily April 14, 2022 12:00am take 1 tablet by papa th every twenty-four hours in the morning metoprolol succinate XL (Toprol-XL) 100 MG 24 hr tablet Take 100 mg by mouth in the morning. Active take 1 tablet by mouth every twe lve hours Metoprolol Tartrate 100 MG 1 tablet with food Orally Twice a day Active Comment on above: Take 100 mg by mouth once daily. spironolactone 25 mg oral tablet (20 sources) Aldosterone Antagonist Start: 03-09-20 End: 04-14-20 take 12.5 mg by mouth once daily Spironolactone Active 12.5 MG PO Daily April 14, 2022 12:00am take 1 tablet by mouth once spir onolactone (Aldactone) 25 MG tablet Take 25 mg by mouth 1 (one) time Active spironolactone ( ALDACTONE) 25 mg tablet Take 12.5 mg by mouth once daily. 0 Active Comment on above: Take 12.5 mg by mout h once daily. Completed/Discontinued Medications Medication Drug Class(es) Dates Sig (Normalized) Sig (Original) alendronic acid 70 mg oral tablet (5 sources) Bisphosphonate End: 08-20-2024 alendronate (Fosamax) 70 MG tablet Take 70 mg by mouth every 7 (seven) days 08/20/2024 Discontinued (Therapy completed) apixaban 5 mg oral tablet (20 sources) Factor Xa Inhibitor Start: 03-09-2022 End: 04-14-2022 take 1 tablet by mouth twice daily apixaban (ELIQUIS) 5 mg tab(s) Take 1 tablet by mouth twice daily. 0 04/10/2022 Active Comment on above: Take 1 tablet by papa twice daily. celecoxib 200 mg oral capsule (11 sources) Nonsteroidal Anti-inflammatory Drug Start: 03-09-2022 End: 08-20-2024 take 200 mg by mouth once daily Celecoxib Discontinued 200 MG PO Daily March 09, 2022 2:30pm April 07, 2022 3:44pm docusate sodium 100 mg oral capsule (12 sources) Start: 04-04-2022 take 1 capsule by mouth twice daily docusate sodium (COLACE) 100 mg capsule Take 1 capsule by mouth twice daily. 0 04/04/2022 Active Comment on above: Take 1 capsule by mo [facility] twice daily. ezetimibe 10 mg oral tablet (20 sources) Dietary Cholesterol Absorption Inhibitor Start: 03-09-2022 [...] Take 32 mL by mouth as needed. methocarbamol 750 mg oral tablet (14 sources) Muscle Relaxant Start: 04-04-2022 End: 04-14-2022 take 1 tablet by mouth every eight hours as needed methocarbamol (ROBAXIN) 750 mg tablet Take 1 tablet by mouth three times daily as needed. 0 04/04/2022 Active Comment on above: Take 1 tablet by papa three times daily as needed. nitroglycerin 0.4 mg sublingual tablet (5 sources) Nitrate Vasodilator End: 08-20-2024 nitroglycerin (Nitrostat) 0.[address] 0.4 mg under the tongue every 5 (five) minutes if needed for chest pain 08/20/2024 Discontinued (Therapy completed) rosuvastatin calcium 5 mg oral tablet (20 sources) HMG-CoA Reductase Inhibitor Start: 03-09-2022 End: 04-14-2022 take 5 mg by mouth once daily Rosuvastatin Discontinued 5 MG PO Daily March 09, 2022 2:30pm April 14, 2022 3:13pm Comment on above: Take 5 mg by mouth o nce daily. tiZANidine 4 mg oral tablet (16 sources) Central alpha-2 Adrenergic Agonist Start: 03-09-2022 End: 08-20-2024 take 4 mg by mouth at bedtime Tizanidine Discontinued 4 MG PO Bedtime March 09, 2022 2:30pm March 28, 2022 10:03am Start: 03-09-2022 End: 04-07-2022 take 2 mg by mouth at bedtime Tizanidine Discontinued 2 MG PO Bedtime March 09, 2022 2:30pm April 07, 2022 3:46pm Problems Active Problems Problem Classification Problem Date Documented Da te Episodic/Chronic Cardiac dysrhythmias (20 sources) Atrial fibrillation; Translations: [Unspecified atrial fibrillation] Onset: 02-01-2012 03-28-2022 Chronic Coagulation and hemorrhagic disorders (6 sources) Thrombophilia; Translations: [Other thrombophilia] Onset: 08-20-2024 08-20-2024 Chronic Congestive heart failure; nonhypertensive (10 sources) Chronic diastolic (congestive) heart failure; Translations: [Diastolic heart failure] Onset: 01-17-2014 Chronic Coronary atherosclerosis and other heart disease (12 sources) Coronary arteriosclerosis; Translations: [Atherosclerotic heart disease of [place] coronary artery without angina pectoris] Onset: 11-17-2021 03-28-2022 Chronic Diabetes mellitus with complications (6 sources) 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 mellitus; Translations: [Type 2 diabetes mellitus with diabetic neuropathy, unspecified] Onset: 08-20-2024 08-20-2024 Chronic Diabetes mellitus without complication (20 sources) Diabetes mellitus; Translations: [Type 2 diabetes mellitus without complications] Onset: 02-01-2012 03-28-2022 Chronic Disorders of lipid metabolism (20 sources) Hyperlipidemia; Translations: [Hyperlipidemia, unspecified] Onset: 02-01-2012 03-28-2022 Chronic Essential hypertension (20 sources) Hypertensive disorder; Translations: [Essential (primary) hypertension] Onset: 02-01-2012 03-28-2022 Chronic Heart valve disorders (6 sources) Mitral valve regurgitation; Translations: [Nonrheumatic mitral (valve) insufficiency] Onset: 02-01-2012 02-15-2024 Chronic Other acquired deformities (1 source) Scoliosis of lumbar spine; Translations: [Other forms of scoliosis, lumbar region] Chronic Peripheral and visceral atherosclerosis (7 sources) Peripheral vascular disease, unspecified; Translations: [Peripheral vascular disease] Onset: 02-16-2022 08-20-2024 Chronic Residual codes; unclassified (2 sources) History of lumbar laminectomy; Translations: [Other specified postprocedural states] 04-08-2022 Episodic Spondylosis; intervertebral disc disorders; other back problems (4 sources) Spondylosis without myelopathy or radiculopathy, lumbar region; Translations: [SPONDYLS W/O MYELO-/RADICULOP LUMB] Onset: 02-18-2022 Chronic Spondylosis; intervertebral disc disorders; other back problems (20 sources) Spinal stenosis of lumbar region; Translations: [Spinal stenosis, lumbar region without neurogenic claudication] Onset: 03-23-2022 Resolved: 08-20-2024 03-23-2022 Episodic Unclassified (1 source) M48.061 - Spinal stenosis, [...] source) Weakness; Translations: [WEAKNESS] Onset: 02-10-2022 Episodic Mood disorders (6 sources) Mood disorders Onset: 02-15-2024 02-15-2024 Other connective tissue disease (13 sources) Weakness of right leg; Translations: [Other symptoms and signs involving the musculoskeletal system] Onset: 03-29-2022 03-29-2022 Episodic Other connective tissue disease (6 sources) Other symptoms and signs involving the musculoskeletal system; Translations: [Other musculoskeletal symptoms referable to limbs] Onset: 03-29-2022 02-15-2024 Episodic Other gastrointestinal disorders (18 sources) Constipation; Translations: [Constipation, unspecified] Onset: 04-02-2022 04-03-2022 Episodic Other screening for suspected conditions (not mental disorders or infectious disease) (10 sources) Abnormal results of thyroid function studies; Translations: [Thyroid function tests abnormal] Onset: 08-15-2022 Episodic Residual codes; unclassified (3 sources) Other specified postprocedural states; Translations: [Other postprocedural status] Onset: 04-07-2022 Episodic Residual codes; unclassified (1 source) Other specified health status; Translations: [Z78.9 - Other specified health status] Onset: 04-07-2022 Episodic Residual codes; unclassified (2 sources) Edema, unspecified; Translations: [Edema, unspecified] Onset: 07-13-2023 Episodic Results Test Name Value Interpretation Reference Range Facility ALL BASIC METABOLIC PANELon 08-20-2024 Anion gap [Moles/Vol] 15.7 mmol/L [facility] Calcium [Mass/Vol] 9.5 mg/dL 8.5 - 10. 1 mg/dL [facility] Chloride [Moles/Vol] 108 mmol/L High 98 - 10 7 mmol/L [facility] CO2 [Moles/Vol] 27.8 mmol/L 21.0 - 32.0 mmol/L [facility] Creatinine [Mass/Vol] 0.85 mg/dL 0.55 - 1.02 mg/dL [facility] GFR/1.73 sq M.predicted CKD-EPI (S/P/Bld) [Vol rate/Area] >60 >=60 mL/min/1.73m 2 [facility] Glucose [Mass/Vol] 118 mg/dL High 74 - 106 mg/dL [facility] Interpretation and review of laboratory results Abnormal [facility] Potassium [Moles/Vol] 4.5 mmol/L 3.5 - 5.1 mmol/L [facility] Sodium [Moles/Vol] 147 mmol/L High 136 - 145 mmol/L [facility] TBH EGFR-NON AF IRISH >60 >=6 0 mL/min/1.73m 2 [facility] Urea nitrogen [Mass/Vol] 14 mg/dL 7.0 - 18.0 mg/dL [facility] Urea nitrogen/Creatinine [Mass ratio] 16.5 mg/mg [facility] ALL CBC WITH AUTO DIFFon BASOPHILS ABSOLUTE AUTO 0 [facility] Basophils/100 WBC (Bld) 0.3 % 0.2 - 2.0 % [facility] Eosinophils/100 WBC (Bld) 0.7 % Low 0.9 - 7.0 % [facility] Erythrocyte distribution width (RBC) [Ratio] 13.6 % 11.0 - 15.0 % [facility] Hematocrit (Bld) [Volume fraction] 40 % 36.0 - 48.0 % [facility] Hemoglobin (Bld) [Mass/Vol] 12.5 g/dL 12.0 - 16.0 g/dL [facility] IMMATURE GRANULOCYTES ABS AUTO 0.01 [facility] Immature granulocytes/100 WBC (Bld) 0.1 % 0.0 - 0.5 % [facility] Interpretation and review of laboratory results Abnormal [facility] LYMPHOCYTES ABSOLUTE AUTO 2.1 [facility] Lymphocytes/100 WBC (Bld) 31.5 % 20.5 - 60.0 % [facility] MCH (RBC) [Entitic mass] 30 pg 26. 7 - 34.0 pg [facility] MCHC (RBC) [Mass/Vol] 31.3 g/dL 29.9 - 35.2 g/dL [facility] MCV (RBC) [Entitic vol] 95.9 fL 81.0 - 99.0 fL [facility] MONOCYTES ABSOLUTE AUTO 0.6 N [facility] Monocytes/100 WBC (Bld) 8.5 % 1.7 - 12.0 % [facility] NEUTROPHILS ABSOLUTE AUTO 3.9 [facility] Neutrophils/100 WBC (Bld) 58.9 % 43.0 - 75.0 % [facility] Platelet mean volume (Bld) [Entitic vol] 9.9 fL 9.5 - 13.5 fL [facility] EO # 0.1 [facility] PLT 263 [facility] RBC 4.17 Low [facility] WBC 6.7 [facility] HbA1c (Bld) [Mass fraction]o n 08-20-2024 Interpretation and review of laboratory results Normal [facility] - Hematology and Cell countson 08-20-2024 HbA1c (Bld) [Mass fraction] 6/1% [facility] 36on 02-19-2024 36 Regarding echo from 02/15/2024: MD Aubrie Bansal MA Her echo is within normal limits. Patient informed. Normal [facility] Office Visiton 02-02-2024 Follow-up visit [id number] Saeed Sarabia 1940 F Date Provider Department Center 02/02/2024 367-MONI ROBERSON [facility] Family History Problem Relation Age of Onset Heart attack Mother Coronary artery disease Mother Heart attack Father Coronary artery disease Father Multiple sclerosis Sister Family Status - Relation Status Age at Mother Father Sister Level of Service:41792 [place] OFFICE/OUTPATIENT ESTABLISHED MOD MDM 30 MIN Reason for Visit and Comments: Follow-up [771315] - 6 months [facility] Office Visiton 07-13-2023 Follow-up visit [id number] Saeed Sarabia 1940 Date Provider Department Center 07/13/2023 EPHRAIM MCKENZIE [facility] Family History Problem Relation Age of Onset Heart attack Mother Coronary artery disease Mother Heart attack Father Coronary artery disease Father Multiple sclerosis Sister Family Status - Relation Status Age at Mother Father Sister Level of Service:62344 [place] OFFICE/OUTPATIENT ESTABLISHED LOW MDM 20-29 MIN [facility] Jose Cruz 09-07-2022 LEXIN Telephone ([id number]) ALEXSAEED ([id number]) 1940 F Date Time Provider Department 09/07/22 JUICE SEARS NE50MN During your visit today, we recorded the following information about you: Xi Arora 09/07/2022 10:56 AM Signed Discharge summary uploaded to [facility]. Francis Mcmanus RN 09/07/2022 2:05 PM Signed [facility] d/c note reviewed: Allergies As of Date: 09/07/2022 (No Known Allergies) Date Reviewed: 05/17/2022 Reviewed by: Paige Andrews MA - Fully Assessed Reason for Visit: Received Outside Medical Records [[id number]] Cmt: [facility] Prescriptions as of 09/07/2022 - metFORMIN [...] Encounter Status:Closed by FRANCIS MCMANUS on 09/07/22 [facility] CNOVon 08-23-2022 CNOV Office Visit (NEUSES) SAEED SARABIA ([id number]) 1940 F Date Time Provider Department 08/23/22 [...] once daily. (more content not included)... Normal [facility] FREE T3on 08-15-2022 FREE T3 2.11 pg/mlL Critically low 2.18-3.98 [facility] Comment on above: Performed By: #### F T3, TSH, CMP, LIPID ####[facility] [address] [place], [place] [address]DsKen Koo FREE T4on 08-15-2022 Free T4 [Mass/Vol] 1.13 ng/dL Normal 0.76-1.46 [facility] Comment on above: Performed By: #### F T4 #### [facility] [id number] Adilene Koo GLYCOHEMOGLOBIN A1Con 2021 ADA RECOMMENDATION SEE BELOW Normal [facility] Comment on above: Result Comment: ADA RECOMMENDED LIMIT 4.0 - 6.0 ADA THERAPEUTIC TARGET < 7.0 ACTION SUGGESTED > 7.0 Performed By: #### A 1C #### [facility] [address] [address] [address] Adilene Koo Glucose [Mass/Vol] 137 mg/dL Normal [facility] Comment on above: Performed By: #### A 1C #### [facility] [address] [address] [address] Adilene Koo HbA1c (Bld) [Mass fraction] 6.4 % Critically high 4.5-6.2 [facility] Comment on above: Performed By: #### A 1C #### [facility] [address] [address] [address] Adilene Koo LIPID PROFILEon 08-15-2022 CHOL-HDL RATIO NORM SEE BELOW Normal [facility] Comment on above: Result Comment: 3.3 - 4.4 LOW RISK 4.4 - 7.1 AVERAGE RISK 7.1 - 11.0 MODERATE RISK >11.0 HIGH RISK Performed By: #### F T3, TSH, CMP, LIPID ####[facility] [address] [place], [place] [address]JaKen Koo Cholesterol [Mass/Vol] 127 mg/dL Normal <=200 Th [facility] Comment on above: Performed By: #### F T3, TSH, CMP, LIPID ####[facility] [address] [place], [place] [address]KyKen Koo Cholesterol in HDL [Mass/Vol] 48 mg/dL Normal 40-60 [facility] Comment on above: Performed By: #### F T3, TSH, CMP, LIPID ####[facility] [address] [id number][address] Adilene Koo Cholesterol in LDL [Mass/Vol] 60.2 mg/dL Normal [facility] Comment on above: Performed By: #### F T3, TSH, CMP, LIPID ####[facility] [id number] [id number][address] Adilene Koo Cholesterol.total/Choles terol in HDL [Mass ratio] 2.6 {ratio} Normal [facility] Comment on above: Performed By: #### F T3, TSH, CMP, LIPID ####[facility] [address] [id number]. Adilene Koo HDL NORMAL > or = 60 mg/dl - LOW CARDIOVASCULAR RISK <40 mg/dl - HIGH CARDIOVASCULAR RISK Normal [facility] Comment on above: Performed By: #### F T3, TSH, CMP, LIPID ####[facility] [address] [id number]. Adilene Koo LDL CALC NORMAL SEE BELOW Normal [facility] Comment on above: Result Comment: <100 mg/dl OPTIMAL 100 - 129 mg/dl NEAR OR ABOVE OPTIMAL 130 - 159 mg/dl BORDERLINE HIGH 160 - 189 mg/dl HIGH >190 mg/dl VERY HIGH Performed By: #### F T3, TSH, CMP, LIPID ####[facility] [address] [id number] Koo Triglyceride [Mass/Vol] 94 mg/dL Normal <=150 [facility] Comment on above: Performed By: #### F T3, TSH, CMP, LIPID ####[facility] [address] [address]Dr. Adilene Koo VLDL CALC 18.8 mg/dL Normal [facility] Comment on above: Performed By: #### F T3, TSH, CMP, LIPID ####[facility] [address] [id number] Koo MICROALBUMIN, RAND URon 11-0 mALB 1.6 mg/L Normal <=30.0 [facility] Comment on above: Performed By: #### M ALBR #### [facility] [id number] Adilene Koo PROF 14(COMP METB)on 022 Albumin [Mass/Vol] 3.2 g/dL Critically low 3.4-5.0 [facility] Comment on above: Performed By: #### F T3, TSH, CMP, LIPID ####[facility] [address] [address]Dr. Adilene Koo Albumin/Globulin [Mass ratio] 0.9 {ratio} Normal [facility] Comment on above: Performed By: #### F T3, TSH, CMP, LIPID ####[facility] [address] [address]Dr. Adilene Koo ALP [Catalytic activity/Vol] 59 U/L Normal 46-116 [facility] Comment on above: Performed By: #### F T3, TSH, CMP, LIPID ####[facility] [address] [place], [place] [address]Dr. Adilene Koo ALT [Catalytic activity/Vol] 19 U/L Normal 14-59 [facility] Comment on above: Performed By: #### F T3, TSH, CMP, LIPID ####[facility] [address] [address]Dr. Adilene Koo Anion gap [Moles/Vol] 10.8 mmol/L Normal [facility] Comment on above: Performed By: #### F T3, TSH, CMP, LIPID ####[facility] [address] [place], [place] [address]Dr. Adilene Koo AST [Catalytic activity/Vol] 18 U/L Normal 15-37 [facility] Comment on above: Performed By: #### F T3, TSH, CMP, LIPID ####[facility] [address] [place], [place] [address]Dr. Adilene Koo Bilirubin [Mass/Vol] 0.4 mg/dL Normal 0.2-1.0 [facility] Comment on above: Performed By: #### F T3, TSH, CMP, LIPID ####[facility] [address] [place], [place] [address]Dr. Adilene Koo Calcium [Mass/Vol] 9.4 mg/dL Normal 8.5-10.1 [facility] Comment on above: Performed By: #### F T3, TSH, CMP, LIPID ####[facility] [address] [address]Dr. Adilene Koo Chloride [Moles/Vol] 106 mmol/L Normal 98-107 [facility] Comment on above: Performed By: #### F T3, TSH, CMP, LIPID ####[facility] [address] [address]Dr. Adilene Koo CO2 [Moles/Vol] 28.9 mmol/L Normal 21.0-32.0 [facility] Comment on above: Performed By: #### F T3, TSH, CMP, LIPID ####[facility] [address] [place], [place] [address]Dr. Adilene Koo Creatinine [Mass/Vol] 0.73 mg/dL Normal 0.55-1.02 [facility] Comment on above: Performed By: #### F T3, TSH, CMP, LIPID ####[facility] [address] [address]Dr. Adilene Koo EGFR-AF IRISH >60 Normal >=60 [facility] Comment on above: Performed By: #### F T3, TSH, CMP, LIPID ####[facility] [address] [place], [place] [address]Dr. Adilene Koo EGFR-NON AF IRISH >60 Normal >=60 [facility] Comment on above: Performed By: #### F T3, TSH, CMP, LIPID ####[facility] [address] [address]Dr. Adilene Koo Globulin (S) [Mass/Vol] 3.6 g/dL Normal [facility] Comment on above: Performed By: #### F T3, TSH, CMP, LIPID ####[facility] [address] [address]Dr. Adilene Koo Glucose [Mass/Vol] 94 mg/dL Normal 74-106 [facility] Comment on above: Performed By: #### F T3, TSH, CMP, LIPID ####[facility] [address] [address]Dr. Adilene Koo Potassium [Moles/Vol] 4.7 mmol/L Normal 3.5-5.1 [facility] Comment on above: Performed By: #### F T3, TSH, CMP, LIPID ####[facility] [address] [address]Dr. Adilene Koo Protein [Mass/Vol] 6.8 g/dL Normal 6.4-8.2 [facility] Comment on above: Performed By: #### F T3, TSH, CMP, LIPID ####[facility] [address] [address]Dr. Adilene Koo Sodium [Moles/Vol] 141 mmol/L Normal 136-145 [facility] Comment on above: Performed By: #### F T3, TSH, CMP, LIPID ####[facility] [address] [address]Dr. Adilene Koo Urea nitrogen [Mass/Vol] 15.0 mg/dL Normal 7.0-18.0 [facility] Comment on above: Performed By: #### F T3, TSH, CMP, LIPID ####[facility] [address] [address]Dr. Adilene oKo Urea nitrogen/Creatinine [Mass ratio] 20.5 mg/mg Normal [facility] Comment on above: Performed By: #### F T3, TSH, CMP, LIPID ####[facility] [address] [address]Dr. Adilene Koo TSHon 08-15-2022 TSH 0.219 uIU/mL Critically low 0.358-3.[address] [facility] Comment on above: Performed By: #### F T3, TSH, CMP, LIPID ####[facility] [address] [address]Dr. Adilene Koo UA RANDOM W/MICROSCOPICon BACTERIA NONE SEEN Normal NONE SEEN [facility] Comment on above: Performed By: #### U AMIC #### [facility] [address] [id number] Adilene Koo Bilirubin Ql (U) Negative Normal NEGATIVE [facility] Comment on above: Performed By: #### U AMIC #### [facility] [address] [address] [address] Adilene Koo CAST NONE SEEN Normal NONE SEEN [facility] Comment on above: Performed By: #### U AMIC #### [facility] [address] [address] [address] Adilene Koo Clarity (U) CLEAR Normal CLEAR [facility] Comment on above: Performed By: #### U AMIC #### [facility] [address] [address] [address] Adilene Koo Color (U) LT. YELLOW Normal YELLOW [facility] Comment on above: Performed By: #### U AMIC #### [facility] [address] [address] [address] Adilene Koo Crystals LM Nom (Urine sed) NONE SEEN Normal NONE SEEN [facility] Comment on above: Performed By: #### U AMIC #### [facility] [address] [address] [address] Adilene Koo Epithelial cells LM Ql (Urine sed) RARE Normal NONE SEEN /RARE [facility] Comment on above: Performed By: #### U AMIC #### [facility] [address] [address] [address] Adilene Koo Glucose Ql (U) Negative Normal NEGATIVE [facility] Comment on above: Performed By: #### U AMIC #### [facility] [address] [address] [address] Adilene Koo Hemoglobin Ql (U) Negative Normal NEGATIVE [facility] Comment on above: Performed By: #### U AMIC #### [facility] [address] [address] [address] Adilene Koo Ketones Ql (U) Negative Normal NEGATIVE [facility] Comment on above: Performed By: #### U AMIC #### [facility] [address] [address] [address] Adilene Koo LEUKOCYTES Negative Normal NEGATIVE [facility] Comment on above: Performed By: #### U AMIC #### [facility] [address] [address] [address] Adilene Koo MUCOUS NONE SEEN Normal NONE SEEN [facility] Comment on above: Performed By: #### U AMIC #### [facility] [address] [place] [address] Dr. Adilene Koo Nitrite Ql (U) Negative Normal NEGATIVE [facility] Comment on above: Performed By: #### U AMIC #### [facility] [address] [place] [address] Dr. Adilene Koo pH (U) 6.0 [pH] Normal 5-9 [facility] Comment on above: Performed By: #### U AMIC #### [facility] [address] [place] [address] Dr. Adilene Koo RBC 0-2 Normal 0-2 [facility] Comment on above: Performed By: #### U AMIC #### [facility] [address] [place] [address] Dr. Adilene Koo SPEC GRAVITY 1.020 Normal 1.005-<=1.02 5 [facility] Comment on above: Performed By: #### U AMIC #### [facility] [address] [place] [address] Dr. Adilene Koo UA PROTEIN Negative Normal NEGATIVE/ TRACE [facility] Comment on above: Performed By: #### U AMIC #### [facility] [address] [place] [address] Dr. Adilene Koo Urobilinogen Qn (U) 0.2 {Juan'U}/dL Normal 0.2 - 1. 0 [facility] Comment on above: Performed By: #### U AMIC #### [facility] [address] [place] [address] Dr. Adilene Koo WBC 0-2 Abnormal NONE SEEN [facility] Comment on above: Performed By: #### U AMIC #### [facility] [address] [place] [address] Dr. Adilene Billingsley 07-29-2022 [place] Telephone (NE50MN) ALEXSAEED ([id number]) 1940 F Date Time Provider Department 07/29/22 JUICE SEARS NE50MN During your visit today, we recorded the following information about you: Janice Alva Sec 07/29/2022 10:27 AM Signed SURGERY creative assistant Calling: Fax received from [facility] Dirk Villareal PT Is Patient Requesting Appointment?: No Is Patient Calling due to Pain?: No Is Patient Requesting Medication?: No General Concerns: Physical Therapy Recertification Note to be signed and returned by fax to [phone]. Patient of: Dr. Renu Mcmanus RN 07/29/2022 12:14 PM Signed Paperwork uploaded via [employer]. Sent to Luis Adam for review and signature. Copies faxed to Tommie @ [phone] and onbase. Francis Mcmanus RN Allergies As [...] Encounter Status:Closed by FRANCIS MCMANUS on 07/29/22 [facility] SAEED SARABIA ([id number]) 1940 F Date Time Provider Department 06/16/22 JUICE SEARS NE50MN During your visit today, we recorded the following information about you: Janice Thomas 06/16/2022 3:15 PM Signed Form received: From (agency / facility / parent): [facility] crane ladle person (if given): none given Phone #: [phone] Fax # : [phone] Email: Information requested: Discharge Physician Orders (Radha) Patient of Dr. Renu Mcmanus RN 06/16/2022 3:30 PM Signed Paperwork uploaded via [employer] and sent to Luis dAam for review and signature. Copies faxed to [facility] at [phone] per request and onbase. Francis Mcmanus RN [...] Encounter Status:Closed by FRANC[facility]CMANUS [facility] SAEED SARABIA ([id number]) 1940 F Date Time Provider Department 05/25/22 JUICE SEARS NE50MN During your visit today, we recorded the following information about you: Rosie Kwon Adm Asst 05/25/2022 12:40 PM Signed General call : Full name of person calling: Trish Anna from OT Relationship to patient: OT Phone # : [phone] Reason for call: Caller reporting that the [...] Encounter Status:Closed by FRANCIS MCMANUS on 05/25/22 [facility] Telephone (NE50MN) ALEXSAEED Nash ([id number]) 1940 F Date Time Provider Department 05/25/22 JUICE SEARS NE50MN During your visit today, we recorded the following information about you: Rosie Kwon Adm Asst 05/25/2022 4:27 PM Signed Form received: From (agency / facility / parent): [facility] crane ladle person (if given): none given Phone #: [phone] Fax # : [phone] Email: Information requested: Physician Orders (Radha) Patient of Dr. Renu Mcmanus RN 05/26/2022 8:04 AM Signed Forms uploaded via [employer]. Sent to Dr. Sears for review and signature. Copies faxed to [facility] at number provided and onbase. Francis Mcmanus RN Allergies As of Date: 05/25/2022 (No Known Allergies) Date Reviewed: 05/17/2022 Reviewed by: Paige Andrews MA - Fully Assessed Reason for Visit: Forms [073] Cmt: Physician Orders (Radha) - [facility] Prescriptions as of 05/26/2022 - metFORMIN (GLUCOPHAGE) [...] Encounter Status:Closed by FRANCIS MCMANUS on 05/26/22 [facility] Jose Cruz 05-24-2022 [place] Telephone (NE50MN) ALEXSAEED Nash ([id number]) 1940 F Date Time Provider Department 05/24/22 JUICE SEARS NE50MN During your visit today, we recorded the following information about you: Rosie Kwon Adm Asst 05/24/2022 10:06 AM Signed Form received: From (agency / facility / parent): [facility] Services crane ladle person (if given): Ernesto Villareal PT Phone #: [phone] Fax # : [phone] Email: Information requested: Initial Examination Patient of Dr. Renu Mcmanus RN 05/24/2022 4:25 PM Signed Paperwork uploaded via [employer]. Sent to Dr. Sears for review and signature. Copies faxed to [facility] [phone] and onbase. Francis Mcmanus RN Allergies As of Date: 05/24/2022 (No Known Allergies) Date Reviewed: 05/17/2022 Reviewed by: Paige Andrews MA - Fully Assessed Reason for Visit: Forms [023] Cmt: [facility] - Initial Examinations Prescriptions as of 05/24/2022 [...] Encounter Status:Closed by FRANCIS MCMANUS on 05/24/22 [facility] CNOVon 05-17-2022 CNOV Office Visit (DOROTHY) SAEED SARABIA ([id number]) 1940 F Date Time Provider Department 05/17/22 [...] Juice Sears MD Referring Provider: FANNIE BLANDON [[id number]] Allergies As of Date: 05/17/2022 (No Known Allergies) Date Reviewed: 05/17/2022 Reviewed by: Paige Andrews MA - Fully Assessed Reason for Visit: Post-Op Visit [1236] Primary Visit Diagnosis:Spinal stenosis of lumbar region, unspecified whether neurogenic claudication present [M48.061] Other Visit Diagnosis:Right leg weakness [R29.898] Order(s):CONSULT TO PHYSICAL THERAPY (OUTSIDE) [[id number]] Order #: [id number]: 1 Prescriptions as of 05/17/2022 - metFORMIN [...] right maki (more content not included)... [facility] SAEED SARABIA ([id number]) 1940 F Date Time Provider Department 05/12/22 JUICE SEARS NE50MN During your visit today, we recorded the following information about you: Mojgan Arsen 05/12/2022 11:45 AM Signed Form received: From (agency / facility / parent): [facility] crane ladle person (if given): Phone #: [phone] Fax # : [phone] Email: Information requested: Physicians orders Patient of Dr. Sears Forwarded to nurse. Francis Mcmanus RN 05/12/2022 12:31 PM Signed Forms uploaded via [employer]. Sent to Dr. Sears for review and signature. Copies faxed to [facility] at [phone] and onbase. Francis Mcmanus RN Allergies As of Date: 05/12/2022 (No Known Allergies) Date Reviewed: 04/07/2022 Reviewed by: Allie Hoover RN - Fully Assessed Reason for Visit: General [Other] Cmt: [facility] Prescriptions as of 05/12/2022 - metFORMIN (GLUCOPHAGE) [...] Encounter Status:Closed by FRANCIS MCMANUS on 05/12/22 [facility] Jose Cruz 05-06-2022 [place] Telephone (NE50MN) ALEXSAEED ([id number]) 1940 F Date Time Provider Department 05/06/22 JUICE SEARS NE50MN During your visit today, we recorded the following information about you: Janice Alva Sec 05/06/2022 4:33 PM Signed SURGERY creative assistant Calling: [facility] Is Patient Requesting Appointment?: No Is Patient Calling due to Pain?: No Is Patient Requesting Medication?: No General Concerns: Plan of Care 04/17/22 - 06/15/22 Patient of: Dr. Renu Mcmanus RN 05/06/2022 4:57 PM Signed POC paperwork uploaded to [employer] and sent to Dr. Sears for review and signature. Copies faxed to [facility] at [phone] and onbase. Francis Mcmanus RN Allergies As of Date: 05/06/2022 (No Known Allergies) Date Reviewed: 04/07/2022 Reviewed by: Allie Hoover RN - Fully Assessed Reason for Visit: Other [Other] Cmt: [facility] Plan of Care 04/17/22 - 06/15/22 Prescriptions [...] Encounter Status:Closed by FRANCIS MCMANUS on 05/06/22 [facility] Telephone (NE50MN) SAEED SARABIA ([id number]) 1940 F Date Time Provider Department 04/29/22 JUICE SEARS NE50MN During your visit today, we recorded the following information about you: KYLAH Rivera 04/29/2022 12:18 PM Signed Form received: From (agency / facility / parent): [facility] crane ladle person (if given): Mojgan Phone #: [phone] Fax # : ATTJanet Ulrich [phone] Email: Information requested: Plan of care Patient of Dr. Renu Mcmanus RN 04/29/2022 12:50 PM Signed Spoke to Mojgan from [facility] regarding plan of care - explained that Dr. Platt will not typically follow patients for extended recovery past the post surgical period. Saeed has a follow up appointment 05/17 - will discuss at this time if her home health plan of care needs to be transitioned to a different practitioner. Forms uploaded to [employer] and sent to Dr. Sears for review and signature. Copies faxed to [facility] [phone] and onbase. Francis Mcmanus RN Allergies As [...] Encounter Status:Closed by FRANCIS MCMANUS on 04/29/22 [facility] SAEED SARABIA ([id number]) 1940 F Date Time Provider Department 04/25/22 JUICE SEARS NE50MN During your visit today, we recorded the following information about you: KYLAH Rivera 04/25/2022 3:00 PM Signed Form received: From (agency / facility / parent): [facility] crane ladle person (if given): Phone #: [phone] Fax # : [phone] Email: Information requested: Plan of care Patient of Dr. Renu Mcmanus RN 04/25/2022 3:22 PM Signed Forms received. Uploaded and sent to Dr. Sears for review and signature via [employer]. Copies sent to [facility] via fax [phone] and onbase. Francis Mcmanus RN Allergies As of Date: 04/25/2022 (No Known Allergies) Date Reviewed: 04/07/2022 Reviewed by: Allie Hoover RN - Fully Assessed Reason for Visit: Forms [833] Cmt: [facility] Prescriptions as of 04/25/2022 - metFORMIN (GLUCOPHAGE) [...] Encounter Status:Closed by FRANCIS MCMANUS on 04/25/22 [facility] Jose Cruz 04-22-2022 [facility] Telephone (NE50MN) SAEED SARABIA ([id number]) 1940 F Date Time Provider Department 04/22/22 JUICE SEARS NE50MN During your visit today, we recorded the following information about you: Ana Hank MONTERO 04/22/2022 12:19 PM Signed Form received: From (agency / facility / parent): [facility] crane ladle person (if given): Saeed Sarabia Phone #: [phone] (home) Fax # : [phone] Email: Information requested: therapy evaluation and care plan Patient of Dr. renu Mcmanus RN 04/22/2022 12:43 PM Signed Forms received. Uploaded to [employer] and sent to Dr. Sears for review and signature. Copies sent to [facility] at fax [phone] and onbase. Francis Mcmanus RN Allergies As of Date: 04/22/2022 (No Known Allergies) Date Reviewed: 04/07/2022 Reviewed by: Allie Hoover RN - Fully Assessed Reason for Visit: Forms [583] Cmt: [facility] Prescriptions as of 04/22/2022 - metFORMIN (GLUCOPHAGE) [...] Encounter Status:Closed by FRANCIS MCMANUS on 04/22/22 [facility] SAEED SARABIA ([id number]) 1940 F Date Time Provider Department 04/15/22 JUICE SEARS NE50MN During your visit today, we recorded the following information about you: Janice Alva Sec 04/15/2022 11:07 AM Signed SURGERY creative assistant Calling: Debbie Miller RNmanagement psychologist coding team lead [facility] direct line Is Patient Requesting Appointment?: No Is Patient Calling due to Pain?: No Is Patient Requesting Medication?: No General Concerns: Requesting orders for home health PT and nurse to check on patient in the home. Patient of: Dr. Renu Mcmanus RN 04/15/2022 11:39 AM Signed Patient s/p 03/31/2022: L2-L5 laminectomy with Dr. Sears. [place] [facility] is requesting PT and home health order - per epic review, no orders seen in chart. Will forward to BLAYNE for review. ELFEGO Miller APRN.LEXI 04/15/2022 12:02 PM Signed Orders placed Dimas Ferreira APRN.LEXI Mcmanus RN 04/15/2022 12:21 PM Signed Called and left VM to ELFEGO Elliott - requesting fax number or email to send PT/home health orders. ELFEGO Miller RN 04/18/2022 2:45 PM Signed Called and left vm with ELFEGO Elliott - requesting fax or email to provide requested orders. ELFEGO Miller Sec 04/19/2022 9:51 AM Signed Cris Leger RN at [facility] [phone], reports start of care for skilled nurse, PT, OT, ST and bath aide as of 04/16/22. No callback is necessary. Mojgan Leger 04/19/2022 12:43 PM Signed Can fax orders to [phone] to Debbie Miller. Francis Mcmanus RN 04/20/2022 [...] region, unspecified whether neurogenic claudication present [M48.061] Order(s):[facility] [[id number]] Order #: [id number]: 1 CONSULT TO PHYSICAL THERAPY (OUTSIDE) [[id number]] Order #: [id number]: 1 Prescriptions as of 04/20/2022 - metFORMIN [...] Status:Closed by FRANCIS MCMANUS on 04/20/22 Normal [facility] Glucose Glucometer (BldC) [M ass/Vol]Ordered By: Kingston Gao on 04-15-2022 Glucose [Mass/Vol] 112 mg/dL [facility] Comment on above: Random Glucose Refer ence Range is dependent on time and content of last meal. Glucose of more than 200 mg/dL in a nonstressed, ambulatory subject supports the diagnosis of Diabetes Mellitus. Glucose Poct Glucometerson 0 04-15-2022 Commemt1 Glu2: Cleaned Meter [facility] Comment on above: Result Comment: PERF ORMED BY: [facility] [address] [place] [address] PATHOLOGIST W[employer]LESS SALES MANAGER GUIDO ELIZALDE M.D. Performed By: #### G LULS #### Point of Care testing , Glucose [Mass/Vol] 112 mg/dL Normal [facility] Comment on above: Result Comment: [facility] Glucose Reference Range is dependent on time and content of last meal. Glucose of more than 200 mg/dL in a nonstressed, ambulatory subject supports the diagnosis of Diabetes Mellitus. Performed By: #### G LULS #### Point of Care testing , No Panel InformationOrdered By: Kingston Gao on 04-15-2022 Bedside Glucose Comment Glu2: cleaned meter [facility] [facility] Glucose Poct Glucometerson 0 04-14-2022 Commemt1 Glu2: Cleaned Meter [facility] Comment on above: Result Comment: PERF ORMED BY: [place] [address] PATHOLOGIST W[employer]LESS SALES MANAGER GUIDO ELIZALDE M.D. Performed By: #### C BC, PT, PTT, CMP #### [place] [address] [place] Glucose [Mass/Vol] 116 mg/dL Normal [facility] Comment on above: Result Comment: [place] om Glucose Reference Range is dependent on time and content of last meal. Glucose of more than 200 mg/dL in a nonstressed, ambulatory subject supports the diagnosis of Diabetes Mellitus. Performed By: #### C BC, PT, PTT, CMP #### [address] Commemt1 Glu2: Cleaned Meter [facility] Comment on above: Result Comment: PERF ORMED BY: [place] [address] PATHOLOGIST WIRELESS SALES MANAGER GUIDO ELIZALDE M.D. Performed By: #### C BC, PT, PTT, CMP #### [place] [address] [place] Glucose [Mass/Vol] 107 mg/dL Normal [facility] Comment on above: Result Comment: [place] om Glucose Reference Range is dependent on time and content of last meal. Glucose of more than 200 mg/dL in a nonstressed, ambulatory subject supports the diagnosis of Diabetes Mellitus. Performed By: #### C BC, PT, PTT, CMP #### [facility] [address] [place] [address] [place] Glucose Poct Glucometerson 0 04-13-2022 Commemt1 Glu2: Cleaned Meter [facility] Comment on above: Result Comment: PERF ORMED BY: [place] [address] PATHOLOGIST WIRELESS SALES MANAGER GUIDO ELIZALDE M.D. Performed By: #### G LULS #### Point of Care testing , Glucose [Mass/Vol] 83 mg/dL Normal [facility] Comment on above: Result Comment: [place] om Glucose Reference Range is dependent on time and content of last meal. Glucose of more than 200 mg/dL in a nonstressed, ambulatory subject supports the diagnosis of Diabetes Mellitus. Performed By: #### G LULS #### Point of Care testing , Glucose [Mass/Vol] 76 mg/dL Normal [facility] Comment on above: Result Comment: [place] om Glucose Reference Range is dependent on time and content of last meal. Glucose of more than 200 mg/dL in a nonstressed, ambulatory subject supports the diagnosis of Diabetes Mellitus. PERFORMED BY: [place] [address] PATHOLOGIST WIRELESS SALES MANAGER GUIDO ELIZALDE M.D. Performed By: #### C BC, PT, PTT, CMP #### [address] Glucose Poct Glucometerson 0 04-12-2022 Commemt1 Glu2: Cleaned Meter Normal [facility] Comment on above: Result Comment: PERF ORMED BY: [place] [address] PATHOLOGIST WIRELESS SALES MANAGER GUIDO ELIZALDE M.D. Performed By: #### C BC, PT, PTT, CMP #### [address] Glucose [Mass/Vol] 238 mg/dL Normal [facility] Comment on above: Result Comment: [place] om Glucose Reference Range is dependent on time and content of last meal. Glucose of more than 200 mg/dL in a nonstressed, ambulatory subject supports the diagnosis of Diabetes Mellitus. Performed By: #### C BC, PT, PTT, CMP #### [address] Glucose [Mass/Vol] 86 mg/dL Normal [facility] Comment on above: Result Comment: [place] om Glucose Reference Range is dependent on time and content of last meal. Glucose of more than 200 mg/dL in a nonstressed, ambulatory subject supports the diagnosis of Diabetes Mellitus. PERFORMED BY: [facility] [address] [place] [address] PATHOLOGIST WIRELESS SALES MANAGER GUIDO ELIZALDE M.D. Performed By: #### G LULS #### Point of Care testing , Glucose Poct Glucometerson 0 04-11-2022 Commemt1 Glu2: Cleaned Meter Normal [facility] Comment on above: Result Comment: PERF ORMED BY: [facility] [address] [place] [address] PATHOLOGIST WIRELESS SALES MANAGER GUIDO ELIZALDE M.D. Performed By: #### G LULS #### Point of Care testing , Glucose [Mass/Vol] 123 mg/dL Normal [facility] Comment on above: Result Comment: [place] om Glucose Reference Range is dependent on time and content of last meal. Glucose of more than 200 mg/dL in a nonstressed, ambulatory subject supports the diagnosis of Diabetes Mellitus. Performed By: #### G LULS #### Point of Care testing , Glucose [Mass/Vol] 107 mg/dL Normal [facility] Comment on above: Result Comment: [place] om Glucose Reference Range is dependent on time and content of last meal. Glucose of more than 200 mg/dL in a nonstressed, ambulatory subject supports the diagnosis of Diabetes Mellitus. PERFORMED BY: [address] [place] [id number] PATHOLOGIST WIRELESS SALES MANAGER GUIDO ELIZALDE M.D. Performed By: #### G LULS #### Point of Care testing , Glucose Poct Glucometerson 0 04-10-2022 Glucose [Mass/Vol] 100 mg/dL Normal [facility] Comment on above: Result Comment: [place] om Glucose Reference Range is dependent on time and content of last meal. Glucose of more than 200 mg/dL in a nonstressed, ambulatory subject supports the diagnosis of Diabetes Mellitus. PERFORMED BY: [facility] [address] [place] [id number] PATHOLOGIST WIRELESS SALES MANAGER GUIDO ELIZALDE M.D. Performed By: #### G LULS #### Point of Care testing , Glucose [Mass/Vol] 99 mg/dL Normal [facility] Comment on above: Result Comment: [facility] Glucose Reference Range is dependent on time and content of last meal. Glucose of more than 200 mg/dL in a nonstressed, ambulatory subject supports the diagnosis of Diabetes Mellitus. PERFORMED BY: [facility] [address] [place] [address] PATHOLOGIST WIRELESS SALES MANAGER GUIDO ELIZALDE M.D. Performed By: #### C BC, PT, PTT, CMP #### [facility] [address] [place] [address] [place] A1C with Estimated Average G mehdi 04-09-2022 Glucose [Mass/Vol] 163 mg/dL Normal [facility] Comment on above: Result Comment: PERF ORMED BY: [facility] [address] [place] [address] PATHOLOGIST WIRELESS SALES MANAGER GUIDO ELIZALDE M.D. Performed By: #### G LULS #### Point of Care testing , HbA1c (Bld) [Mass fraction] 7.3 % High 4.3-5.6 [facility] Comment on above: Result Comment: Incr eased risk for diabetes: 5.7 - 6.4 diabetes: >6.4 glycemic control for adults with diabetes: <7.0 Performed By: #### G LULS #### Point of Care testing , Cholesterol [Mass/volume] in Serum or PlasmaOrdered By: Justyn Spann on 04-09-2022 Cholesterol [Mass/Vol] 128 mg/dL 140-200 [facility] Comment on above: Chol less than 200 m g/dl low risk Chol 201-239 mg/dl borderline risk Chol 240 mg/dl and greater high risk Cholesterol in LDL Calc [Mas s/Vol]Ordered By: Justyn Spann on 04-09-2022 Cholesterol in LDL [Mass/Vol] 68 mg/dL 0-100 [facility] Comment on above: LDL ATP III CLASSIFI CATION LDL less than 100 mg/dL Optimal LDL 100-129 mg/dL Near or above optimal LDL 130-159 mg/dL Borderline high LDL 160-189 mg/dL High LDL greater than 189 mg/dL Very high Cholesterol in VLDL Calc [Ma ss/Vol]Ordered By: Justyn Spann on 04-09-2022 Cholesterol in VLDL [Mass/Vol] 22 mg/dL [facility] Glucose Poct Glucometerson 0 04-09-2022 Commemt1 Glu2: Cleaned Meter [facility] Comment on above: Result Comment: PERF ORMED BY: [place] [address] PATHOLOGIST WIRELESS SALES MANAGER GUIDO ELIZALDE M.D. Performed By: #### G LULS #### Point of Care testing , Glucose [Mass/Vol] 164 mg/dL Normal [facility] Comment on above: Result Comment: [place] Glucose Reference Range is dependent on time and content of last meal. Glucose of more than 200 mg/dL in a nonstressed, ambulatory subject supports the diagnosis of Diabetes Mellitus. Performed By: #### G LULS #### Point of Care testing , Commemt1 Glu2: Cleaned Meter [facility] Comment on above: Result Comment: PERF ORMED BY: [place] [address] PATHOLOGIST WIRELESS SALES MANAGER GUIDO ELIZALDE M.D. Performed By: #### C BC, PT, PTT, CMP #### [facility] [address] [place] [address] Glucose [Mass/Vol] 152 mg/dL Normal [facility] Comment on above: Result Comment: [place] Glucose Reference Range is dependent on time and content of last meal. Glucose of more than 200 mg/dL in a nonstressed, ambulatory subject supports the diagnosis of Diabetes Mellitus. Performed By: #### C BC, PT, PTT, CMP #### [facility] [address] [place] [address] Glucose mean value [Mass/vol ume] in Blood Estimated from glycated hemoglobinOrdered By: Justyn Spann on 04-09-2022 Average glucose Estimated from glycated hemoglobin (Bld) [Mass/Vol] 163 mg/dL [facility] Hemoglobin A1c percentageOrd ered By: Justyn Spann on 04-09-2022 HbA1c (Bld) [Mass fraction] 7.3 % 4.3-5.6 [facility] Comment on above: Increased risk for d iabetes: 5.7 - 6.4 diabetes: >6.4 glycemic control for adults with diabetes: <7.0 Lipid Panelon 04-09-2022 Cholesterol [Mass/Vol] 128 mg/dL Low 140-200 [facility] Comment on above: Result Comment: Chol less than 200 mg/dl low risk Chol 201-239 mg/dl borderline risk Chol 240 mg/dl and greater high risk Performed By: #### G LULS #### Point of Care testing , Cholesterol in HDL [Mass/Vol] 37 mg/dL Normal 35-85 [facility] Comment on above: Result Comment: HDL CHOL ATP-III CLASSIFICATION Cardiovascular Risk HDL > or equal to 60 mg/dL LOW HDL < 40 mg/dL HIGH Performed By: #### G LULS #### Point of Care testing , Cholesterol.total/Choles terol in HDL [Mass ratio] 3.5 {ratio} Normal <5.0 [facility] Comment on above: Result Comment: PERF ORMED BY: [facility] [address] [place] [address] PATHOLOGIST WIRELESS SALES MANAGER GUIDO ELIZALDE M.D. Performed By: #### G LULS #### Point of Care testing , LDL Cholesterol,Calculated 68 mg/dL Normal 0-100 [facility] Comment on above: Result Comment: LDL ATP III CLASSIFICATION LDL less than 100 mg/dL Optimal LDL 100-129 mg/dL Near or above optimal LDL 130-159 mg/dL Borderline high LDL 160-189 mg/dL High LDL greater than 189 mg/dL Very high Performed By: #### G LULS #### Point of Care testing , Triglyceride w/Reflex 114 mg/dL Normal 35-149 [facility] Comment on above: Result Comment: TRIG ATP III CLASSIFICATION TRIG less than 150 mg/dL Normal TRIG 150-199 mg/dL Borderline high TRIG 200-500 mg/dL High TRIG greater than 500 mg/dL Very high Standard traceable to the Center for Disease Conrtrol and Prevention (CDC) test method. Performed By: #### G LULS #### Point of Care testing , VLDL CHOLESTEROL 22 mg/dL Normal [facility] Comment on above: Performed By: #### G LULS #### Point of Care testing , Serum or plasma high density lipoprotein (HDL) cholesterol measurementOrdered By: Justyn Spann on 04-09-2022 Cholesterol in HDL [Mass/Vol] 37 mg/dL 35-85 [facility] Comment on above: HDL CHOL ATP-III CLA SSIFICATION Cardiovascular Risk HDL > or equal to 60 mg/dL LOW HDL < 40 mg/dL HIGH Serum or plasma total choles terol/high density lipoprotein (HDL) cholesterol mass ratOrdered By: Justyn Spann on 04-09-2022 Cholesterol.total/Choles terol in HDL [Mass ratio] 3.5 {ratio} <5.0 [facility] Triglyceride [Mass/volume] i n Serum or PlasmaOrdered By: Justyn Spann on 04-09-2022 Triglyceride [Mass/Vol] 114 mg/dL 35-149 [facility] Comment on above: TRIG ATP III CLASSIF ICATION TRIG less than 150 mg/dL Normal TRIG 150-199 mg/dL Borderline high TRIG 200-500 mg/dL High TRIG greater than 500 mg/dL Very high Standard traceable to the Center for Disease Conrtrol and Prevention (CDC) test method. Albumin [Mass/volume] in Ser um or PlasmaOrdered By: Kingston Gao on 04-08-2022 Albumin [Mass/Vol] 2.6 g/dL Low 3.2-5.5 [facility] Comment on above: Performed By: #### C BC, PT, PTT, CMP #### [facility] [address] [place] [address] [place] Automated basophil %Ordered By: Kingston Gao on 04-08-2022 Basophils/100 WBC (Bld) 0.6 % Normal . [facility] Comment on above: Performed By: #### C BC, PT, PTT, CMP #### [facility] [address] [place] [address] [place] Automated basophil countOrde red By: Kingston Gao on 04-08-2022 Basophils (Bld) [#/Vol] 0.0 10*3/uL Normal 0.0-0.2 [facility] Comment on above: Result Comment: PERF ORMED BY: [place] [address] PATHOLOGIST WIRELESS SALES MANAGER GUIDO ELIZALDE M.D. Performed By: #### C BC, PT, PTT, CMP #### [address] Automated blood lymphocyte c ount (number/volume)Ordered By: Kingston Gao on 04-08-2022 Lymphocytes (Bld) [#/Vol] 2.0 10*3/uL Normal 1.00-4.8 [facility] Comment on above: Performed By: #### C BC, PT, PTT, CMP #### [address] Automated blood lymphocyte c ount as percentage of total leukocytesOrdered By: Kingston Gao on 04-08-2022 Lymphocytes/100 WBC (Bld) 26.1 % Normal . [facility] Comment on above: Performed By: #### C BC, PT, PTT, CMP #### [address] Automated blood monocyte cou ntOrdered By: Kingston Gao on 04-08-2022 Monocytes (Bld) [#/Vol] 0.7 10*3/uL Normal 0.0-0.8 [facility] Comment on above: Performed By: #### C BC, PT, PTT, CMP #### [address] Automated blood platelet cou nt (count/volume)Ordered By: Kignston Gao on 04-08-2022 Platelets (Bld) [#/Vol] 285 10*3/uL Normal 150-450 [facility] Comment on above: Performed By: #### C BC, PT, PTT, CMP #### [address] Automated blood platelet elizabeth n volume measurementOrdered By: Kingston Gao on 04-08-2022 Platelet mean volume (Bld) [Entitic vol] 8.4 fL Normal 6.3-10.7 [facility] Comment on above: Performed By: #### C BC, PT, PTT, CMP #### [facility] [address] [place] [address] Automated eosinophil %Ordere d By: Kingston Gao on 04-08-2022 Eosinophils/100 WBC (Bld) 2.7 % Normal . [facility] Comment on above: Performed By: #### C BC, PT, PTT, CMP #### [address] Automated eosinophil countOr dered By: Kingston Gao on 04-08-2022 Eosinophils (Bld) [#/Vol] 0.2 10*3/uL Normal 0.0-0.45 [facility] Comment on above: Performed By: #### C BC, PT, PTT, CMP #### [address] Automated erythrocyte distri bution width ratioOrdered By: Kingston Gao on 04-08-2022 Erythrocyte distribution width (RBC) [Ratio] 14.0 % Normal 11.9-15.3 [facility] Comment on above: Performed By: #### C BC, PT, PTT, CMP #### [address] Automated erythrocyte mean c orpuscular hemoglobin (mass per erythrocyte)Ordered By: Kingston Gao on 04-08-2022 MCH (RBC) [Entitic mass] 30.4 pg Normal 24.7-34.3 [facility] Comment on above: Performed By: #### C BC, PT, PTT, CMP #### [address] Automated erythrocyte mean c orpuscular volumeOrdered By: Kingston Gao on 04-08-2022 MCV (RBC) [Entitic vol] 92.2 fL Normal 80-100 [facility] Comment on above: Performed By: #### C BC, PT, PTT, CMP #### [address] Automated monocyte %Ordered By: Kingston Gao on 04-08-2022 Monocytes/100 WBC (Bld) 9.4 % Normal . [facility] Comment on above: Performed By: #### C BC, PT, PTT, CMP #### [address] Automated neutrophil %Ordere d By: Kingston Gao on 04-08-2022 Neutrophils/100 WBC (Bld) 61.2 % Normal . [facility] Comment on above: Performed By: #### C BC, PT, PTT, CMP #### [address] Blood erythrocytes automated count (number/volume)Ordered By: Kingston Goa on 04-08-2022 RBC (Bld) [#/Vol] 3.69 10*6/uL Normal 3.60-5.00 [facility] Comment on above: Performed By: #### C BC, PT, PTT, CMP #### [address] Blood hemoglobin measurement (mass/volume)Ordered By: Kingston Gao on 04-08-2022 Hemoglobin (Bld) [Mass/Vol] 11.2 g/dL Low 11.8-15.4 [facility] Comment on above: Performed By: #### C BC, PT, PTT, CMP #### [address] Blood leukocytes automated c ount (number/volume)Ordered By: Kingston Gao on 04-08-2022 WBC (Bld) [#/Vol] 7.6 10*3/uL Normal 4.5-11.0 [facility] Comment on above: Performed By: #### C BC, PT, PTT, CMP #### [address] Blood neutrophil count by au tomated method (number/volume)Ordered By: Kingston Gao on 04-08-2022 Neutrophils (Bld) [#/Vol] 4.7 10*3/uL Normal 1.8-7.7 [facility] Comment on above: Performed By: #### C BC, PT, PTT, CMP #### [place] [address] [place] Complete Blood Count Auto Di ffon 04-08-2022 Mean Corpuscular HGB Conc 33.0 g/dL Normal 32.0-35.0 [facility] Comment on above: Performed By: #### C BC, PT, PTT, CMP #### [facility] [address] [place] [address] Complete Blood Count Auto Di ffOrdered By: Kingston Gao on 04-08-2022 Nucleated RBC/100 WBC (Bld) [Ratio] 0.1 % Normal 0-0.5 [facility] Comment on above: Performed By: #### C BC, PT, PTT, CMP #### [facility] [address] [place] [address] Comprehensive Metabolic Pane michael 04-08-2022 ALT [Catalytic activity/Vol] 17 U/L Normal 10-60 [facility] Comment on above: Performed By: #### C BC, PT, PTT, CMP #### [address] Creatinine Clr Calc Pharmacy 57.76 [facility] Comment on above: Performed By: #### C BC, PT, PTT, CMP #### [address] Estimated GFR ( Froylan > 60 Normal [facility] Comment on above: Result Comment: GFR estimated reference range: According to KDOQI guidelines, <60 ml/min/1.73m2 is sufficient to diagnose a patient with chronic kidney disease. Performed By: #### C BC, PT, PTT, CMP #### [facility] [address] [place] [address] Estimated GFR (Non- Am > 60 Normal [facility] Comment on above: Performed By: #### C BC, PT, PTT, CMP #### [address] Estimated glomerular filtrat ion rate (GFR) non- AmericanOrdered By: Kingston Gao on 04-08-2022 GFR/1.73 sq M.predicted among non-blacks MDRD (S/P/Bld) [Vol rate/Area] > 60 mL/Min [facility] Glucose Poct Glucometerson 0 04-08-2022 Glucose [Mass/Vol] 83 mg/dL Normal [facility] Comment on above: Result Comment: [facility] Glucose Reference Range is dependent on time and content of last meal. Glucose of more than 200 mg/dL in a nonstressed, ambulatory subject supports the diagnosis of Diabetes Mellitus. PERFORMED BY: [facility] [address] [place] [address] PATHOLOGIST WIRELESS SALES MANAGER GUIDO ELIZALDE M.D. Performed By: #### G LULS #### Point of Care testing , Glucose [Mass/Vol] 115 mg/dL Normal [facility] Comment on above: Result Comment: [facility] Glucose Reference Range is dependent on time and content of last meal. Glucose of more than 200 mg/dL in a nonstressed, ambulatory subject supports the diagnosis of Diabetes Mellitus. PERFORMED BY: [facility] [address] [place] [address] PATHOLOGIST WIRELESS SALES MANAGER GUIDO ELIZALDE M.D. Performed By: #### C BC, PT, PTT, CMP #### [facility] [address] [place], [place] [id number] [facility] Hematocrit [Volume Fraction] of Blood by Automated countOrdered By: Kingston Gao on 04-08-2022 Hematocrit (Bld) [Volume fraction] 34.0 % Normal 34.0-46.4 [facility] Comment on above: Performed By: #### C BC, PT, PTT, CMP #### [facility] [address] [place] [address] MCHC Auto (RBC) [Mass/Vol]Or dered By: Kingston Gao on 04-08-2022 MCHC (RBC) [Mass/Vol] 33.0 g/dL 32.0-35.0 [facility] No Panel InformationOrdered By: Kingston Gao on 04-08-2022 Estimated GFR () > 60 mL/Min [facility] Comment on above: GFR estimated refere nce range: According to KDOQI guidelines, <60 ml/min/1.73m2 is sufficient to diagnose a patient with chronic kidney disease. Pharmacy Creatinine Clearance (Chem 57.76 [facility] Protein [Mass/volume] in Ser um or PlasmaOrdered By: Kingston Gao on 04-08-2022 Protein [Mass/Vol] 5.6 g/dL Low 6.1-7.9 [facility] Comment on above: Performed By: #### C BC, PT, PTT, CMP #### [facility] [address] Serum globulin measurement b y calculation (mass/volume)Ordered By: Kingston Gao on 04-08-2022 Globulin (S) [Mass/Vol] 3.0 g/dL Normal [facility] Comment on above: Performed By: #### C BC, PT, PTT, CMP #### [address] Serum or plasma alanine [place] otransferase measurement without P-5'-P (enzymatic activiOrdered By: Kingston Gao on 04-08-2022 ALT No additional P-5'-P [Catalytic activity/Vol] 17 U/L 10-60 [facility] Serum or plasma albumin/glob ulin mass ratioOrdered By: Kingston Gao on 04-08-2022 Albumin/Globulin [Mass ratio] 0.9 {ratio} Normal [facility] Comment on above: Performed By: #### C BC, PT, PTT, CMP #### [address] Serum or plasma alkaline dolly sphatase measurement (enzymatic activity/volume)Ordered By: Kingston Gao on 04-08-2022 ALP [Catalytic activity/Vol] 56 U/L Normal 32-92 [facility] Comment on above: Performed By: #### C BC, PT, PTT, CMP #### [facility] [address] [place] [address] Serum or plasma aspartate am inotransferase measurement (enzymatic activity/volume)Ordered By: Kingston Gao on 04-08-2022 AST [Catalytic activity/Vol] 18 U/L Normal 10-42 [facility] Comment on above: Performed By: #### C BC, PT, PTT, CMP #### [address] [place] [address] [place] Serum or plasma calcium nakul urement (mass/volume)Ordered By: Kingston Gao on 04-08-2022 Calcium [Mass/Vol] 9.2 mg/dL Normal 8.2-10.2 [facility] Comment on above: Performed By: #### C BC, PT, PTT, CMP #### [facility] [address] Serum or plasma chloride elizabeth surement (moles/volume)Ordered By: Kingston Gao on 04-08-2022 Chloride [Moles/Vol] 101 mmol/L Normal 95-114 [facility] Comment on above: Performed By: #### C BC, PT, PTT, CMP #### [address] Serum or plasma creatinine m easurement with calculation of estimated glomerular filtrOrdered By: Kingston Gao on 04-08-2022 Creatinine [Mass/Vol] 0.72 mg/dL Normal 0.44-1.03 [facility] Comment on above: Performed By: #### C BC, PT, PTT, CMP #### [facility] [address] Serum or plasma glucose nakul urement (mass/volume)Ordered By: Kingston Gao on 04-08-2022 Glucose [Mass/Vol] 119 mg/dL High 70-100 [facility] Comment on above: ADA recommended refe rence range Random Glucose Reference Range is dependent on time and content of last meal. Glucose of more than 200 mg/dL in a nonstressed, ambulatory subject supports the diagnosis of Diabetes Mellitus. Result Comment: [place] Glucose Reference Range is dependent on time and content of last meal. Glucose of more than 200 mg/dL in a nonstressed, ambulatory subject supports the diagnosis of Diabetes Mellitus. ADA recommended reference range Performed By: #### C BC, PT, PTT, CMP #### [facility] [address] Serum or plasma potassium me asurement (moles/volume)Ordered By: Kingston Gao on 04-08-2022 Potassium [Moles/Vol] 4.2 mmol/L Normal 3.5-5.1 [facility] Comment on above: Performed By: #### C BC, PT, PTT, CMP #### [address] Serum or plasma prealbumin m easurement (mass/volume)Ordered By: Kingston Gao on 04-08-2022 Prealbumin [Mass/Vol] 15.9 mg/dL Low 18.0-38.0 [facility] Comment on above: Result Comment: PERF ORMED BY: [place] [address] PATHOLOGIST W[employer]ESS SALES MANAGER GUIDO ELIZALDE M.D. Performed By: #### C BC, PT, PTT, CMP #### [address] Serum or plasma sodium measu rement (moles/volume)Ordered By: Kingston Gao on 04-08-2022 Sodium [Moles/Vol] 138 mmol/L Normal 136-146 [facility] Comment on above: Performed By: #### C BC, PT, PTT, CMP #### [address] Serum or plasma total biliru bin measurement (mass/volume)Ordered By: Kingston Gao on 04-08-2022 Bilirubin [Mass/Vol] 0.5 mg/dL Normal 0.3-1.2 [facility] [facility] Comment on above: Performed By: #### C BC, PT, PTT, CMP #### [address] Serum or plasma total carbon dioxide measurement (moles/volume)Ordered By: Kingston Gao on 04-08-2022 CO2 [Moles/Vol] 28.4 mmol/L Normal 22.0-30.0 [facility] Comment on above: Performed By: #### C BC, PT, PTT, CMP #### [address] Serum or plasma urea nitroge n measurement (mass/volume)Ordered By: Kingston Gao on 04-08-2022 Urea nitrogen [Mass/Vol] 7 mg/dL Low 9-23 [facility] Comment on above: Performed By: #### C BC, PT, PTT, CMP #### [facility] [address] CNDSon 04-07-2022 CNDS HNO ID: [id number] Author: Fannie Blandon PA-C Service: Neurosurgery Author Type: Physician Infant Nanny Type: Discharge Summary Filed: 04/07/2022 11:07 AM Note Text: Attestation signed by Juice Sears MD at 04/07/2022 12:00 PM . [facility] DISCHARGE SUMMARY Account #: Data Unavailable Admission Date: 03/28/2022 Date of Evaluation: 04/04/2022 Time of Evaluation: 12:05 PM Attending: Dr. Juice Sears MD. Location: [place] [id number] Discharge Date: 04/07/2022 Attending Physician: Juice Sears [...] 2) (HCC) POA: Yes Constipation POA: Yes Final Diagnoses: [...] Course: The patient was transferred from the [facility] to the [facility] for the right leg foot drop.. [...] mouth t (more content not included)... Normal [facility] Glucose Poct Glucometerson 0 04-07-2022 Glucose [Mass/Vol] 161 mg/dL Normal [facility] Comment on above: Result Comment: [facility] Glucose Reference Range is dependent on time and content of last meal. Glucose of more than 200 mg/dL in a nonstressed, ambulatory subject supports the diagnosis of Diabetes Mellitus. PERFORMED BY: [place] [address] PATHOLOGIST WIRELESS SALES MANAGER GUIDO ELIZALDE M.D. Performed By: #### C BC, PT, PTT, CMP #### [address] Glucose [Mass/Vol] 110 mg/dL Normal [facility] Comment on above: Result Comment: [facility] Glucose Reference Range is dependent on time and content of last meal. Glucose of more than 200 mg/dL in a nonstressed, ambulatory subject supports the diagnosis of Diabetes Mellitus. PERFORMED BY: [facility] [place] [address] PATHOLOGIST WIRELESS SALES MANAGER GUIDO ELIZLADE M.D. Performed By: #### G LULS #### Point of Care testing , THERAPY NTon 04-07-2022 THERAPY NT HNO ID: [id number] Author: RADHA White/Monik Service: Occupational Therapy Author Type: Occupational Therapist Type: Therapy (PT/OT/Speech/Resp) Filed: 04/07/2022 9:09 AM Note Text: OCCUPATIONAL THERAPY MISSED VISIT SERVICE DATE: 04/07/2022 SERVICE TIME: 907 to 0908 ROOM: [place] [address] Per chart pt planned for dc to [place] today. Will defer OT this date and f/u per POC as appropriate if pt remains in acute care setting. SIGNATURE: TORRES White PATIENT NAME: Saeed Sarabia DATE: April 07, 2022 TIME: 9:09 AM Normal [facility] SARS-CoV-2 RNA Resp Ql HARMONY+p robeon 04-06-2022 SARS-CoV-2 (COVID-19) RNA HARMONY+probe Ql (Resp) COVID 19 RESULT: SARS-CoV-2 (Agent of COVID-19) Not Detected by RT-PCR or equivalent method. This test has been authorized by FDA under an Emergency Use Authorization (EUA). Normal [facility] Comment on above: Performed By: #### 9 4500-6 #### [facility] CLIA [id number] [address] [place] [address] THERAPY NTon 04-06-2022 THERAPY NT HNO ID: [id number] Author: RADHA White/Monik Service: Occupational Therapy Author Type: Occupational Therapist Type: Therapy (PT/OT/Speech/Resp) Filed: 04/06/2022 2:34 PM Note Text: OCCUPATIONAL THERAPY MISSED VISIT SERVICE DATE: 04/06/2022 SERVICE TIME: 1434 to 1434 ROOM: [place] [address] Patient not seen due to Bathing. SIGNATURE: TORRES White PATIENT NAME: Saeed Sarabia DATE: April 06, 2022 TIME: 2:34 PM Normal [facility] THERAPY NT HNO ID: [id number] Author: Eugenia Wilkins, PT Service: ? 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 Normal [facility] THERAPY NTon 04-05-2022 THERAPY NT HNO ID: [id number] Author: Eugenia Wilkins, PT Service: ? 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 Normal [facility] Basic metabolic 2000 panelon 04-04-2022 Anion gap [Moles/Vol] 10 mmol/L Normal 9-18 [facility] Comment on above: Order Comment: Speci men Type: BLOOD SPECIMENOrdering Facility: [facility] Address: [address] [place] [address] Performed By: #### 2 4321-2 ####[facility] LABCLIA [id number] [place] [address] [place] Calcium [Mass/Vol] 9.1 mg/dL Normal 8.5-10.2 [facility] Comment on above: Order Comment: Speci men Type: BLOOD SPECIMENOrdering Facility: [facility] Address: [address] [place] [address] Performed By: #### 2 4321-2 ####[facility] LABCLIA [id number] [place] [address] [place] Chloride [Moles/Vol] 98 mmol/L Normal 97-105 [facility] Comment on above: Order Comment: Speci men Type: BLOOD SPECIMENOrdering Facility: [facility] Address: [address] [place], [place] [address] Performed By: #### 2 4321-2 ####[facility] LABCLIA [id number] [place] [address] [place] CO2 [Moles/Vol] 28 mmol/L Normal 22-30 [facility] Comment on above: Order Comment: Speci men Type: BLOOD SPECIMENOrdering Facility: [facility] Address: [address] [place], [place] [address] Performed By: #### 2 4321-2 ####[facility] LABCLIA [id number] [place] [address] [place] Creatinine [Mass/Vol] 0.68 mg/dL Normal 0.58-0.96 [facility] Comment on above: Order Comment: Akilah nieto Type: BLOOD SPECIMENOrdering Facility: [facility] Address: [address] [place] [address] Performed By: #### 2 4321-2 ####[facility] LABCLIA [id number] [place] [address] [place] ESTIMATED GLOMERULAR FILTRATION RATE 88 mL/min/1.73m??? Normal >=60 [facility] Comment on above: Order Comment: Akilah nieto Type: BLOOD SPECIMENOrdering Facility: [facility] Address: [address] [place] [address] Result Comment: Roz mated Glomerular Filtration Rate [...] Performed By: #### 2 4321-2 ####[facility] LABCLIA [id number] [place] [address] [place] Glucose [Mass/Vol] 183 mg/dL High 74-99 [facility] Comment on above: Order Comment: Akilah nieto Type: BLOOD SPECIMENOrdering Facility: [facility] Address: [address] Result Comment: The [place] Diabetes Association (ADA) provides guidance for cutoff [...] Standards of Medical Care in Diabetes 2016, [place] [employer]. Diabetes Care. 2016.39(Suppl 1). Performed By: #### 2 4321-2 ####[facility] LABCLIA [id number] [place] [address] [place] Potassium [Moles/Vol] 4.2 mmol/L Normal 3.7-5.1 [facility] Comment on above: Order Comment: Speci men Type: BLOOD SPECIMENOrdering Facility: [facility] Address: [address] [place] [address] Performed By: #### 2 4321-2 ####[facility] LABCLIA [id number] [place] [address] [place] Sodium [Moles/Vol] 136 mmol/L Normal 136-144 [facility] Comment on above: Order Comment: Speci men Type: BLOOD SPECIMENOrdering Facility: [facility] Address: [address] [place] [address] Performed By: #### 2 4321-2 ####[facility] LABCLIA [id number] [place] [address] [place] Urea nitrogen [Mass/Vol] 12 mg/dL Normal 7-21 [facility] Comment on above: Order Comment: Speci men Type: BLOOD SPECIMENOrdering Facility: [facility] Address: [address] [place] [address] Performed By: #### 2 4321-2 ####[facility] LABCLIA [id number] [place] [address] [place] CBC panel Auto (Bld)on 04-04 Erythrocyte distribution width (RBC) [Ratio] 13.4 % Normal 11.5-15.0 [facility] Comment on above: Order Comment: Speci men Type: BLOOD SPECIMENOrdering Facility: [facility] Address: [address] [place] [address] Performed By: #### 5 8410-2 ####[facility] LABCLIA [id number] [place] [address] [place] Hematocrit (Bld) [Volume fraction] 33.6 % Low 36.0-46.0 [facility] Comment on above: Order Comment: Speci men Type: BLOOD SPECIMENOrdering Facility: [facility] Address: [address] [place] [address] Performed By: #### 5 8410-2 ####[facility] LABIA [id number] [place] [address] [place] Hemoglobin (Bld) [Mass/Vol] 10.6 g/dL Low 11.5-15.5 [facility] Comment on above: Order Comment: Speci men Type: BLOOD SPECIMENOrdering Facility: [facility] Address: [address] [place] [address] Performed By: #### 5 8410-2 ####[facility] LABIA [id number] [address] [place] MCH (RBC) [Entitic mass] 29.9 pg Normal 26.0-34.0 [facility] Comment on above: Order Comment: Speci men Type: BLOOD SPECIMENOrdering Facility: [facility] Address: [address] [place] [address] Performed By: #### 5 8410-2 ####[facility] LABIA [id number] [address] [place] MCHC (RBC) [Mass/Vol] 31.5 g/dL Normal 30.5-36.0 [facility] Comment on above: Order Comment: Speci men Type: BLOOD SPECIMENOrdering Facility: [facility] Address: [address] [place] [address] Performed By: #### 5 8410-2 ####[facility] LABIA [id number] [address] [place] MCV (RBC) [Entitic vol] 94.6 fL Normal 80.0-100.0 [facility] Comment on above: Order Comment: Speci men Type: BLOOD SPECIMENOrdering Facility: [facility] Address: [address] [place] [address] Performed By: #### 5 8410-2 ####[facility] LABCLIA [id number] [place] [address] [place] Nucleated RBC (Bld) [#/Vol] 10*3/uL Normal <0.01 [facility] Comment on above: Order Comment: Speci men Type: BLOOD SPECIMENOrdering Facility: [facility] Address: [address] [place], [place] [address] Performed By: #### 5 8410-2 ####[facility] LABIA [id number] [place] [address] [place] Platelet mean volume (Bld) [Entitic vol] 11.2 fL Normal 9.0-12.7 [facility] Comment on above: Order Comment: Speci men Type: BLOOD SPECIMENOrdering Facility: [facility] Address: [address] [place] [phone] Performed By: #### 5 8410-2 ####[facility] LABCLIA [id number] [place] [address] [place] Platelets (Bld) [#/Vol] 240 10*3/uL Normal 150-400 [facility] Comment on above: Order Comment: Speci men Type: BLOOD SPECIMENOrdering Facility: [facility] Address: [address] [place] [address] Performed By: #### 5 8410-2 ####[facility] LABCLIA [id number] [place] [address] [place] RBC (Bld) [#/Vol] 3.55 10*6/uL Low 3.90-5.20 [facility] Comment on above: Order Comment: Speci men Type: BLOOD SPECIMENOrdering Facility: [facility] Address: [address] [place] [address] Performed By: #### 5 8410-2 ####[facility] LABCLIA [id number] [address] [place] WBC (Bld) [#/Vol] 8.74 10*3/uL Normal 3.70-11.00 [facility] Comment on above: Order Comment: Speci men Type: BLOOD SPECIMENOrdering Facility: [facility] Address: [address] [place] [address] Performed By: #### 5 8410-2 ####[facility] LABCLIA [id number] [address] [place] NUTRITIONon 04-04-2022 NUTRITION HNO ID: [id number] Author: Stefania Parsons DTR Service: Nutrition Therapy Author Type: Document Scanner Type: Nutrition Filed: 04/04/2022 3:16 PM Note Text: NUTRITION THERAPY SPECIALIST WOUND CARE NOTE SERVICE DATE: 04/04/2022 SERVICE TIME: 1225 Visit Type: Length of Stay Plan of Care: Follow-Up: Monitor weekly Nursing Admission Assessment Malnutrition Score: 0 Nutrition Intake: Diet Orders (From admission, onward) Start Ordered 03/31/221929 DIET REGULAR START NOW 03/31/22 191 Average intake over: Unable to determine Appetite: [...] April 04, 2022 TIME: 3:16 PM Normal [facility] SARS-CoV-2 RNA Resp Ql HARMONY+p yasmaniecompa 04-04-2022 SARS-CoV-2 (COVID-19) RNA HARMONY+probe Ql (Resp) COVID 19 RESULT: SARS-CoV-2 (Agent of COVID-19) Not Detected by RT-PCR or equivalent method. This test has been authorized by FDA under an Emergency Use Authorization (EUA). Normal [facility] Comment on above: Performed By: #### 9 4500-6 ####[facility] LABCLIA [id number] [address] OF [facility] THERAPY NTon 04-04-2022 THERAPY NT HNO ID: [id number] Author: Osiel Calzada PTA Service: Physical Therapy Author Type: Software Quality Engineer Type: Therapy (PT/OT/Speech/Resp) Filed: 04/04/2022 3:38 PM Note Text: Attestation signed by Eugenia Win PT at 04/04/2022 4:34 PM I reviewed and agree with the documentation corresponding to this therapy visit. 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 Normal [facility] Urinalysis complete panel (U )on 04-04-2022 Bilirubin Ql (U) Negative Normal [facility] Comment on above: Order Comment: Speci men Type: URINE SPECIMENOrdering Facility: [facility] Address: [address] [place] [address] Performed By: #### 2 4356-8 ####[facility] LABIA [id number] [place] [address] [place] Clarity (Unsp spec) Clear Normal Clear [facility] Comment on above: Order Comment: Speci men Type: URINE SPECIMENOrdering Facility: [facility] Address: [address] [address] Performed By: #### 2 4356-8 ####[facility] LABCLIA [id number] [place] [address] [place] Color (U) Yellow Normal Yellow [facility] Comment on above: Order Comment: Speci men Type: URINE SPECIMENOrdering Facility: [facility] Address: [address] [place] [address] Performed By: #### 2 4356-8 ####[facility] LABCLIA [id number] [place] [address] [place] Epithelial cells LM.HPF (Urine sed) [#/Area] Few Normal [facility] Comment on above: Order Comment: Speci men Type: URINE SPECIMENOrdering Facility: [facility] Address: [address] [place], [place] [address] Result Comment: Few Performed By: #### 2 4356-8 ####[facility] LABCLIA [id number] [address] [place] Glucose Test strip (U) [Mass/Vol] Negative Normal Negative [facility] Comment on above: Order Comment: Speci men Type: URINE SPECIMENOrdering Facility: [facility] Address: [address] [place], [place] [address] Performed By: #### 2 4356-8 ####[facility] LABCLIA [id number] [place] [address] [place] Hemoglobin Ql (U) Negative Normal Negative [facility] Comment on above: Order Comment: Speci men Type: URINE SPECIMENOrdering Facility: [facility] Address: [address] [place], [place] [address] Performed By: #### 2 4356-8 ####[facility] LABCLIA [id number] [place] [address] [place] Ketones Ql (U) Trace Abnormal Negative [facility] Comment on above: Order Comment: Speci men Type: URINE SPECIMENOrdering Facility: [facility] Address: [address] [place], [place] [address] Performed By: #### 2 4356-8 ####[facility] LABCLIA [id number] [place] [address] [place] Leukocyte esterase Test strip Ql (U) Negative Normal Negative [facility] Comment on above: Order Comment: Speci men Type: URINE SPECIMENOrdering Facility: [facility] Address: [address] [place] [address] Performed By: #### 2 4356-8 ####[facility] LABCLIA [id number] [place] [address] [place] Nitrite Ql (U) Negative Normal Negative [facility] Comment on above: Order Comment: Speci men Type: URINE SPECIMENOrdering Facility: [facility] Address: [address] [place] [address] Performed By: #### 2 4356-8 ####[facility] LABCLIA [id number] [place] [address] [place] pH (U) 7.0 [pH] Normal 5.0-8.0 [facility] Comment on above: Order Comment: Speci men Type: URINE SPECIMENOrdering Facility: [facility] Address: [address] [place] [address] Performed By: #### 2 4356-8 ####[facility] LABCLIA [id number] [place] [address] [place] Protein (U) [Mass/Vol] 1+ Abnormal Negative [facility] Comment on above: Order Comment: Speci men Type: URINE SPECIMENOrdering Facility: [facility] Address: [address] [place], [place] [address] Performed By: #### 2 4356-8 ####[facility] LABCLIA [id number] [place] [address] [place] RBC LM.HPF (Urine sed) [#/Area] 3-5 /HPF Abnormal 0-3 /HPF [facility] Comment on above: Order Comment: Speci men Type: URINE SPECIMENOrdering Facility: [facility] Address: [address] [place], [place] [address] Performed By: #### 2 4356-8 ####[facility] LABCLIA [id number] [place] [address] [place] Specific gravity (U) [Rel density] 1.015 Normal 1.005-1.030 [facility] Comment on above: Order Comment: Speci men Type: URINE SPECIMENOrdering Facility: [facility] Address: [address] [place] [address] Performed By: #### 2 4356-8 ####[facility] LABIA [id number] [place] [address] [place] Urobilinogen Ql (U) Negative Normal Negative [facility] Comment on above: Order Comment: Speci men Type: URINE SPECIMENOrdering Facility: [facility] Address: [address] [place] [address] Performed By: #### 2 4356-8 ####[facility] LABIA [id number] [place] [address] [place] WBC LM.HPF (Urine sed) [#/Area] 6-10 /HPF Abnormal 0-5 /HPF [facility] Comment on above: Order Comment: Speci men Type: URINE SPECIMENOrdering Facility: [facility] Address: [address] [place] [address] Performed By: #### 2 4356-8 ####[facility] LABIA [id number] [place] [address] [place] Basic metabolic 2000 panelon 04-03-2022 Anion gap [Moles/Vol] 9 mmol/L Normal 9-18 [facility] Comment on above: Order Comment: Speci men Type: BLOOD SPECIMENOrdering Facility: [facility] Address: [address] [place] [address] Performed By: #### 2 4321-2 ####[facility] LABIA [id number] [place] [address] [place] Calcium [Mass/Vol] 8.9 mg/dL Normal 8.5-10.2 [facility] Comment on above: Order Comment: Speci men Type: BLOOD SPECIMENOrdering Facility: [facility] Address: [address] Performed By: #### 2 4321-2 ####[facility] LABCLIA [id number] [place] [address] [place] Chloride [Moles/Vol] 97 mmol/L Normal 97-105 [facility] Comment on above: Order Comment: Speci men Type: BLOOD SPECIMENOrdering Facility: [facility] Address: [address] [place], [place] [address] Performed By: #### 2 4321-2 ####[facility] LABCLIA [id number] [place] [address] [place] CO2 [Moles/Vol] 28 mmol/L Normal 22-30 [facility] Comment on above: Order Comment: Speci men Type: BLOOD SPECIMENOrdering Facility: [facility] Address: [address] [place], [place] [address] Performed By: #### 2 4321-2 ####[facility] LABCLIA [id number] [place] [address] [place] Creatinine [Mass/Vol] 0.80 mg/dL Normal 0.58-0.96 [facility] Comment on above: Order Comment: Speci men Type: BLOOD SPECIMENOrdering Facility: [facility] Address: [address] [place], [place] [address] Performed By: #### 2 4321-2 ####[facility] LABCLIA [id number] [place] [address] [place] ESTIMATED GLOMERULAR FILTRATION RATE 74 mL/min/1.73m??? Normal >=60 [facility] Comment on above: Order Comment: Speci men Type: BLOOD SPECIMENOrdering Facility: [facility] Address: [address] [place], [place] [address] Result Comment: Roz mated Glomerular Filtration Rate [...] Performed By: #### 2 4321-2 ####[facility] LABIA [id number] [place] [address] [place] Glucose [Mass/Vol] 211 mg/dL High 74-99 [facility] Comment on above: Order Comment: Specnae nieto Type: BLOOD SPECIMENOrdering Facility: [facility] Address: [address] [place] [address] Result Comment: The [place] Diabetes Association (ADA) provides guidance for cutoff [...] Standards of Medical Care in Diabetes 2016, [place] [employer]. Diabetes Care. 2016.39(Suppl 1). Performed By: #### 2 4321-2 ####[facility] LABIA [id number] [place] [address] [place] Potassium [Moles/Vol] 4.2 mmol/L Normal 3.7-5.1 [facility] Comment on above: Order Comment: Akilah nieto Type: BLOOD SPECIMENOrdering Facility: [facility] Address: [address] [address] Performed By: #### 2 4321-2 ####[facility] LABIA [id number] [place] [address] [place] Sodium [Moles/Vol] 134 mmol/L Low 136-144 [facility] Comment on above: Order Comment: Speci men Type: BLOOD SPECIMENOrdering Facility: [facility] Address: [address] [place], [place] [address] Performed By: #### 2 4321-2 ####[facility] LABCLIA [id number] [place] [address] [place] Urea nitrogen [Mass/Vol] 14 mg/dL Normal 7-21 [facility] Comment on above: Order Comment: Speci men Type: BLOOD SPECIMENOrdering Facility: [facility] Address: [address] [place] [address] Performed By: #### 2 4321-2 ####[facility] LABIA [id number] [place] [address] [place] CBC panel Auto (Bld)on 04-03 Erythrocyte distribution width (RBC) [Ratio] 13.4 % Normal 11.5-15.0 [facility] Comment on above: Order Comment: Speci men Type: BLOOD SPECIMENOrdering Facility: [facility] Address: [address] [place], [place] [address] Performed By: #### 5 8410-2 ####[facility] LABCLIA [id number] [place] [address] [place] Hematocrit (Bld) [Volume fraction] 31.8 % Low 36.0-46.0 [facility] Comment on above: Order Comment: Speci men Type: BLOOD SPECIMENOrdering Facility: [facility] Address: [address] [place], [place] [address] Performed By: #### 5 8410-2 ####[facility] LABCLIA [id number] [place] [address] [place] Hemoglobin (Bld) [Mass/Vol] 10.3 g/dL Low 11.5-15.5 [facility] Comment on above: Order Comment: Speci men Type: BLOOD SPECIMENOrdering Facility: [facility] Address: [address] [place], [place] [address] Performed By: #### 5 8410-2 ####[facility] [id number] [address] MCH (RBC) [Entitic mass] 30.2 pg Normal 26.0-34.0 [facility] Comment on above: Order Comment: Speci men Type: BLOOD SPECIMENOrdering Facility: [facility] Address: [address] [place], [place] [address] Performed By: #### 5 8410-2 ####[facility] [id number] [address] [place] MCHC (RBC) [Mass/Vol] 32.4 g/dL Normal 30.5-36.0 [facility] Comment on above: Order Comment: Speci men Type: BLOOD SPECIMENOrdering Facility: [facility] Address: [address] [place], [place] [address] Performed By: #### 5 8410-2 ####[facility] [id number] [address] [place] MCV (RBC) [Entitic vol] 93.3 fL Normal 80.0-100.0 [facility] Comment on above: Order Comment: Speci men Type: BLOOD SPECIMENOrdering Facility: [facility] Address: [address] [place], [place] [address] Performed By: #### 5 8410-2 ####[facility] [id number] [address] [place] Nucleated RBC (Bld) [#/Vol] 10*3/uL Normal <0.01 [facility] Comment on above: Order Comment: Speci men Type: BLOOD SPECIMENOrdering Facility: [facility] Address: [address] [place], [place] [address] Performed By: #### 5 8410-2 ####[facility] LABIA [id number] [place] [address] [place] Platelet mean volume (Bld) [Entitic vol] 10.4 fL Normal 9.0-12.7 [facility] Comment on above: Order Comment: Speci men Type: BLOOD SPECIMENOrdering Facility: [facility] Address: [address] [place], [place] [address] Performed By: #### 5 8410-2 ####[facility] LABIA [id number] [place] [address] [place] Platelets (Bld) [#/Vol] 202 10*3/uL Normal 150-400 [facility] Comment on above: Order Comment: Speci men Type: BLOOD SPECIMENOrdering Facility: [facility] Address: [address] [place], [place] [address] Performed By: #### 5 8410-2 ####[facility] LABIA [id number] [place] [address] [place] RBC (Bld) [#/Vol] 3.41 10*6/uL Low 3.90-5.20 [facility] Comment on above: Order Comment: Speci men Type: BLOOD SPECIMENOrdering Facility: [facility] Address: [address] [place] [phone] Performed By: #### 5 8410-2 ####[facility] LABIA [id number] [place] [address] [place] WBC (Bld) [#/Vol] 10.11 10*3/uL Normal 3.70-11.00 [facility] Comment on above: Order Comment: Speci men Type: BLOOD SPECIMENOrdering Facility: [facility] Address: [address] [place], [place] [address] Performed By: #### 5 8410-2 ####[facility] SANJEEV [id number] [address] STATES OF [facility] THERAPY NTon 04-03-2022 THERAPY NT HNO ID: [id number] Author: Osiel Calzada PTA Service: Physical Therapy Author Type: Software Quality Engineer Type: Therapy (PT/OT/Speech/Resp) Filed: 04/03/2022 12:32 PM Note Text: Attestation signed by Cyndee Vernon PT, DPT at 04/03/2022 1:25 PM I reviewed and agree with the documentation corresponding to this therapy visit. 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 Normal [facility] Basic metabolic 2000 panelon 04-02-2022 Anion gap [Moles/Vol] 9 mmol/L Normal 9-18 [facility] Comment on above: Order Comment: Speci men Type: BLOOD SPECIMENOrdering Facility: [facility] Address: [address] [place] [address] Performed By: #### 2 4321-2 ####[facility] LABCLIA [id number] [place] [address] [place] Calcium [Mass/Vol] 9.2 mg/dL Normal 8.5-10.2 [facility] Comment on above: Order Comment: Speci men Type: BLOOD SPECIMENOrdering Facility: [facility] Address: [address] Performed By: #### 2 4321-2 ####[facility] LABCLIA [id number] [place] [address] [place] Chloride [Moles/Vol] 98 mmol/L Normal 97-105 [facility] Comment on above: Order Comment: Speci men Type: BLOOD SPECIMENOrdering Facility: [facility] Address: [address] Performed By: #### 2 4321-2 ####[facility] LABCLIA [id number] [place] [address] [place] CO2 [Moles/Vol] 26 mmol/L Normal 22-30 [facility] Comment on above: Order Comment: Speci men Type: BLOOD SPECIMENOrdering Facility: [facility] Address: [address] [place] [address] Performed By: #### 2 4321-2 ####[facility] LABCLIA [id number] [place] [address] [place] Creatinine [Mass/Vol] 0.69 mg/dL Normal 0.58-0.96 [facility] Comment on above: Order Comment: Speci men Type: BLOOD SPECIMENOrdering Facility: [facility] Address: [address] [place] [address] Performed By: #### 2 4321-2 ####[facility] LABIA [id number] [address] [place] ESTIMATED GLOMERULAR FILTRATION RATE 87 mL/min/1.73m??? Normal >=60 [facility] Comment on above: Order Comment: Speci men Type: BLOOD SPECIMENOrdering Facility: [facility] Address: [address] [place] [address] Result Comment: Roz mated Glomerular Filtration Rate [...] Performed By: #### 2 4321-2 ####[facility] LABCLIA [id number] [place] [address] [place] Glucose [Mass/Vol] 287 mg/dL High 74-99 [facility] Comment on above: Order Comment: Speci men Type: BLOOD SPECIMENOrdering Facility: [facility] Address: [address] [place] [phone] Result Comment: The [place] Diabetes [employer] (ADA) provides guidance for cutoff [...] Standards of Medical Care in Diabetes 2016, [place] [employer]. Diabetes Care. 2016.39(Suppl 1). Performed By: #### 2 4321-2 ####[facility] LABCLIA [id number] [place] [address] [place] Potassium [Moles/Vol] 4.0 mmol/L Normal 3.7-5.1 [facility] Comment on above: Order Comment: Speci men Type: BLOOD SPECIMENOrdering Facility: [facility] Address: [address] [place] [phone] Performed By: #### 2 4321-2 ####[facility] LABCLIA [id number] [place] [address] [place] Sodium [Moles/Vol] 133 mmol/L Low 136-144 [facility] Comment on above: Order Comment: Speci men Type: BLOOD SPECIMENOrdering Facility: [facility] Address: [address] [place] [phone] Performed By: #### 2 4321-2 ####[facility] LABCLIA [id number] [place] [address] [place] Urea nitrogen [Mass/Vol] 13 mg/dL Normal 7-21 [facility] Comment on above: Order Comment: Speci men Type: BLOOD SPECIMENOrdering Facility: [facility] Address: [address] [place] [address] Performed By: #### 2 4321-2 ####[facility] LABIA [id number] [address] [place] CBC panel Auto (Bld)on 04-02 Erythrocyte distribution width (RBC) [Ratio] 13.3 % Normal 11.5-15.0 [facility] Comment on above: Order Comment: Speci men Type: BLOOD SPECIMENOrdering Facility: [facility] Address: [address] [place] [address] Performed By: #### 5 8410-2 ####[facility] [id number] [address] [place] Hematocrit (Bld) [Volume fraction] 33.4 % Low 36.0-46.0 [facility] Comment on above: Order Comment: Speci men Type: BLOOD SPECIMENOrdering Facility: [facility] Address: [address] [place] [address] Performed By: #### 5 8410-2 ####[facility] [id number] [place] [address] [place] Hemoglobin (Bld) [Mass/Vol] 10.7 g/dL Low 11.5-15.5 [facility] Comment on above: Order Comment: Speci men Type: BLOOD SPECIMENOrdering Facility: [facility] Address: [address] [place], [place] [address] Performed By: #### 5 8410-2 ####[facility] [id number] [place] [address] [place] MCH (RBC) [Entitic mass] 30.0 pg Normal 26.0-34.0 [facility] Comment on above: Order Comment: Speci men Type: BLOOD SPECIMENOrdering Facility: [facility] Address: [address] [place], [place] [address] Performed By: #### 5 8410-2 ####[facility] LABCLIA [id number] [address] [place] MCHC (RBC) [Mass/Vol] 32.0 g/dL Normal 30.5-36.0 [facility] Comment on above: Order Comment: Speci men Type: BLOOD SPECIMENOrdering Facility: [facility] Address: [address] [place], [place] [address] Performed By: #### 5 8410-2 ####[facility] LABIA [id number] [address] [place] MCV (RBC) [Entitic vol] 93.6 fL Normal 80.0-100.0 [facility] Comment on above: Order Comment: Speci men Type: BLOOD SPECIMENOrdering Facility: [facility] Address: [address] [place], [place] [address] Performed By: #### 5 8410-2 ####[facility] LABIA [id number] [address] [place] Nucleated RBC (Bld) [#/Vol] 10*3/uL Normal <0.01 [facility] Comment on above: Order Comment: Speci men Type: BLOOD SPECIMENOrdering Facility: [facility] Address: [address] [place] [phone] Performed By: #### 5 8410-2 ####[facility] LABIA [id number] [address] [place] Platelet mean volume (Bld) [Entitic vol] 10.5 fL Normal 9.0-12.7 [facility] Comment on above: Order Comment: Speci men Type: BLOOD SPECIMENOrdering Facility: [facility] Address: [address] [place], [place] [address] Performed By: #### 5 8410-2 ####[facility] LABIA [id number] [place] [address] [place] Platelets (Bld) [#/Vol] 210 10*3/uL Normal 150-400 [facility] Comment on above: Order Comment: Speci men Type: BLOOD SPECIMENOrdering Facility: [facility] Address: [address] [place], [place] [address] Performed By: #### 5 8410-2 ####[facility] LABCLIA [id number] [place] [address] [place] RBC (Bld) [#/Vol] 3.57 10*6/uL Low 3.90-5.20 [facility] Comment on above: Order Comment: Speci men Type: BLOOD SPECIMENOrdering Facility: [facility] Address: [address] [place] [address] Performed By: #### 5 8410-2 ####[facility] LABCLIA [id number] [place] [address] [place] [facility] WBC (Bld) [#/Vol] 11.18 10*3/uL High 3.70-11.00 [facility] Comment on above: Order Comment: Speci men Type: BLOOD SPECIMENOrdering Facility: [facility] Address: [address] [place], [place] [address] Performed By: #### 5 8410-2 ####[facility] LABCLIA [id number] [place] [address] [place] Magnesium SerPl-mCncon 04-02 Magnesium [Mass/Vol] 2.1 mg/dL Normal 1.7-2.3 [facility] Comment on above: Order Comment: Speci men Type: BLOOD SPECIMENOrdering Facility: [facility] Address: [address] [place], [place] [address] Performed By: #### 1 9123-9 ####[facility] LABCLIA [id number] [place] [address] [place] ANES POSTPROC EVALon 022 ANES POSTPROC EVAL HNO ID: [id number] Author: Ever Salcedo MD Service: ? Author Type: Anesthesiologist Type: Anesthesia Postprocedure Evaluation Filed: 04/01/2022 6:51 AM Note Text: POST ANESTHESIA EVALUATION NOTE : 1940 Procedure Summary Date: 03/31/22 Room / Location: [address] Anesthesia Start: 1616 Anesthesia Stop: 2012 Procedure: LAMINOTOMY W/DECOMPRESSION NERVE ROOT(S),INCLUDING PARTIAL FACETECTOMY,FORAMINO MIGUEL AND/OR EXCISION HERNIATED DISC; EA ADD'L INTERSPACE,CERVICAL/ LUMBAR (N/A Spine Lumbar) Diagnosis: Lumbar stenosis with neurogenic claudication Surgeons: Juice Sears MD Responsible Provider: Ever Salcedo MD Anesthesia Type: general ASA Status: 3 Anesthesia Type: general Airway Type: ETT Last Vitals Vitals Value Taken Time BP 140/70 04/01/22 0522 Temp 36.3 ?C (97.3 ?F) 04/01/22 0523 Pulse 98 04/01/22 0523 Resp 16 04/01/22 0522 SpO2 97 % 04/01/22 05 [facility] AN POST OP NOTE Anesthesia Observations No Documentation SIGNATURE: Ever Salcedo MD PATIENT NAME: Saeed Sarabia DATE: April 01, 2022 TIME: 6:51 AM CSN: [id number] Normal [facility] Basic metabolic 2000 panelon 04-01-2022 Anion gap [Moles/Vol] 11 mmol/L Normal 9-18 [facility] Comment on above: Order Comment: Speci men Type: BLOOD SPECIMENOrdering Facility: [facility] Address: [address] [place], [place] [phone] Performed By: #### 2 4321-2 ####[facility] LABCLIA [id number] [place] [address] [place] Calcium [Mass/Vol] 8.8 mg/dL Normal 8.5-10.2 [facility] Comment on above: Order Comment: Speci men Type: BLOOD SPECIMENOrdering Facility: [facility] Address: [address] Performed By: #### 2 4321-2 ####[facility] LABCLIA [id number] [place] [address] [place] Chloride [Moles/Vol] 103 mmol/L Normal 97-105 [facility] Comment on above: Order Comment: Speci men Type: BLOOD SPECIMENOrdering Facility: [facility] Address: [address] [place], [place] [address] Performed By: #### 2 4321-2 ####[facility] LABCLIA [id number] [place] [address] [place] CO2 [Moles/Vol] 25 mmol/L Normal 22-30 [facility] Comment on above: Order Comment: Speci men Type: BLOOD SPECIMENOrdering Facility: [facility] Address: [address] [place], [place] [address] Performed By: #### 2 4321-2 ####[facility] LABCLIA [id number] [place] [address] [place] Creatinine [Mass/Vol] 0.70 mg/dL Normal 0.58-0.96 [facility] Comment on above: Order Comment: Speci men Type: BLOOD SPECIMENOrdering Facility: [facility] Address: [address] [place], [place] [address] Performed By: #### 2 4321-2 ####[facility] LABIA [id number] [place] [address] [place] ESTIMATED GLOMERULAR FILTRATION RATE 87 mL/min/1.73m??? Normal >=60 [facility] Comment on above: Order Comment: Speci men Type: BLOOD SPECIMENOrdering Facility: [facility] Address: [address] [place], [place] [address] Result Comment: Roz mated Glomerular Filtration Rate [...] Performed By: #### 2 4321-2 ####[facility] LABCLIA [id number] [address] [address] [place] Glucose [Mass/Vol] 232 mg/dL High 74-99 [facility] Comment on above: Order Comment: Speci men Type: BLOOD SPECIMENOrdering Facility: [facility] Address: [address] [phone] Result Comment: The [place] [employer] (ADA) provides guidance for cutoff [...] Standards of Medical Care in Diabetes 2016, [place] [employer]. Diabetes Care. 2016.39(Suppl 1). Performed By: #### 2 4321-2 ####[facility] LABCLIA [id number] [place] [address] [place] Potassium [Moles/Vol] 4.6 mmol/L Normal 3.7-5.1 [facility] Comment on above: Order Comment: Speci men Type: BLOOD SPECIMENOrdering Facility: [facility] Address: [address] [place] [address] Performed By: #### 2 4321-2 ####[facility] LABCLIA [id number] [address] [address] [place] Sodium [Moles/Vol] 139 mmol/L Normal 136-144 [facility] Comment on above: Order Comment: Speci men Type: BLOOD SPECIMENOrdering Facility: [facility] Address: [address] [place], [place] [address] Performed By: #### 2 4321-2 ####[facility] LABCLIA [id number] [place] [address] [place] Urea nitrogen [Mass/Vol] 18 mg/dL Normal 7-21 [facility] Comment on above: Order Comment: Speci men Type: BLOOD SPECIMENOrdering Facility: [facility] Address: [address] [place], [place] [address] Performed By: #### 2 4321-2 ####[facility] LABIA [id number] [place] [address] [place] CBC panel Auto (Bld)on 04-01 Erythrocyte distribution width (RBC) [Ratio] 13.0 % Normal 11.5-15.0 [facility] Comment on above: Order Comment: Speci men Type: BLOOD SPECIMENOrdering Facility: [facility] Address: [address] [place], [place] [address] Performed By: #### 5 8410-2 ####[facility] LABIA [id number] [place] [address] [place] Hematocrit (Bld) [Volume fraction] 36.7 % Normal 36.0-46.0 [facility] Comment on above: Order Comment: Speci men Type: BLOOD SPECIMENOrdering Facility: [facility] Address: [address] [place], [place] [address] Performed By: #### 5 8410-2 ####[facility] LABIA [id number] [place] [address] [place] Hemoglobin (Bld) [Mass/Vol] 12.0 g/dL Normal 11.5-15.5 [facility] Comment on above: Order Comment: Speci men Type: BLOOD SPECIMENOrdering Facility: [facility] Address: [address] [place], [place] [address] Performed By: #### 5 8410-2 ####[facility] LABIA [id number] [address] STATES [facility] MCH (RBC) [Entitic mass] 30.3 pg Normal 26.0-34.0 [facility] Comment on above: Order Comment: Speci men Type: BLOOD SPECIMENOrdering Facility: [facility] Address: [address] [place], [place] [address] Performed By: #### 5 8410-2 ####[facility] LABIA [id number] [address] [place] MCHC (RBC) [Mass/Vol] 32.7 g/dL Normal 30.5-36.0 [facility] Comment on above: Order Comment: Speci men Type: BLOOD SPECIMENOrdering Facility: [facility] Address: [address] [place], [place] [address] Performed By: #### 5 8410-2 ####[facility] LABIA [id number] [address] [place] MCV (RBC) [Entitic vol] 92.7 fL Normal 80.0-100.0 [facility] Comment on above: Order Comment: Speci men Type: BLOOD SPECIMENOrdering Facility: [facility] Address: [address] [place], [place] [address] Performed By: #### 5 8410-2 ####[facility] LABIA [id number] [place] [address] [place] Nucleated RBC (Bld) [#/Vol] 10*3/uL Normal <0.01 [facility] Comment on above: Order Comment: Speci men Type: BLOOD SPECIMENOrdering Facility: [facility] Address: [address] [place], [place] [address] Performed By: #### 5 8410-2 ####[facility] LABCLIA [id number] [place] [address] [place] Platelet mean volume (Bld) [Entitic vol] 10.3 fL Normal 9.0-12.7 [facility] Comment on above: Order Comment: Speci men Type: BLOOD SPECIMENOrdering Facility: [facility] Address: [address] [place], [place] [id number] Performed By: #### 5 8410-2 ####[facility] LABCLIA [id number] [place] [address] [place] Platelets (Bld) [#/Vol] 238 10*3/uL Normal 150-400 [facility] Comment on above: Order Comment: Speci men Type: BLOOD SPECIMENOrdering Facility: [facility] Address: [address] [place], [place] [id number] Performed By: #### 5 8410-2 ####[facility] LABIA [id number] [place] [address] [place] RBC (Bld) [#/Vol] 3.96 10*6/uL Normal 3.90-5.20 [facility] Comment on above: Order Comment: Speci men Type: BLOOD SPECIMENOrdering Facility: [facility] Address: [address] [place], [place] [address] Performed By: #### 5 8410-2 ####[facility] LABIA [id number] [place] [address] [place] WBC (Bld) [#/Vol] 10.32 10*3/uL Normal 3.70-11.00 [facility] Comment on above: Order Comment: Speci men Type: BLOOD SPECIMENOrdering Facility: [facility] Address: [address] [place], [place] [address] Performed By: #### 5 8410-2 ####[facility] LABIA [id number] [place] [address] [place] CONSULTon 04-01-2022 CONSULT HNO ID: [id number] Author: Seth Montaño MD Service: Physical Medicine AND Rehabilitation Author Type: Physician Type: Consults Filed: 04/01/2022 3:27 PM Note Text: HOSPITAL INITIAL CONSULT: PMANDR SERVICE DATE: 04/01/2022 SERVICE TIME: 1450 REASON FOR CONSULTATION: assessment of rehab service needs Subjective PATIENT'S HOME ADDRESS: [address] [place] [address] [address] [facility] [address] HISTORY: Saeed Sarabia is a 81 year old female whose current [facility] admission dates to 03/28/2022. History notes that she was admitted on that date from outside hospital. Ms. Sarabia is being seen at the request of Dr. Sears, the [facility] physician of record. She carries the rehabilitation [...] told she needed surgery; she transferred to [facility] on 03/28. Gabapentin increased but patient [...] Clicks Score (more content not included)... Normal [facility] NURSING PROGon 04-01-2022 NURSING PROG HNO ID: [id number] Author: Marina Hicks RN Service: Nursing Author Type: Registered Nurse Type: Nursing Progress Note Filed: 03/31/2022 10:46 PM Note Text: Pt back from PACU with family. Pt has c/o nausea. Pt pale, daughter and at bedside. Paged team to get orders for nausea meds and general med orders re-released. Normal [facility] OPERATIVE NOon 04-01-2022 OPERATIVE NO HNO ID: [id number] Author: Juice Sears MD Service: Neurosurgery Author Type: Physician Type: Operative Report Filed: 04/01/2022 8:29 AM Note Text: OPERATIVE/PROCEDURE REPORT LOG ID: [id number] SURGERY/PROCEDURE DATE: 03/31/2022 - 04/01/2022 INCISION/PROCEDURE START TIME: 5:02 PM INCISION CLOSE/PROCEDURE END TIME: 7:33 PM SURGEON(S)/PROCEDURA LIST(S) AND BARTENDERS(S): Surgeon(s) and Role: * Juice Sears MD [...] April 01, 2022 TIME: 8:26 AM Normal [facility] THERAPY NTon 04-01-2022 THERAPY NT HNO ID: [id number] Author: Sav Narvaez OT/L Service: Occupational Therapy Author Type: Occupational Therapist Type: Therapy (PT/OT/Speech/Resp) Filed: 04/01/2022 2:24 PM Note Text: Occupational Therapy Evaluation SERVICE DATE: 04/01/2022 SERVICE TIME: 1335 to 1414 ROOM: [place] [address] Recommended Discharge Disposition: Acute Rehab Recommended Discharge [...] of the year backwards order, starting with Pritesh : Starts but states <7 months / [...] ls;Self Care;Transportation; Shopping Prior Functional Level 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 Normal [facility] ANES PRE-OPon 03-31-2022 ANES PRE-OP HNO ID: [id number] Author: Nawaf Caballero APRN.AUTO PORTER Service: ? Author Type: Nurse Test Engineering Intern Type: Anesthesia Preprocedure Evaluation Filed: 03/31/2022 4:18 PM Note Text: ANESTHESIOLOGY DAY OF SURGERY NOTE : 1940 Procedure Information Anesthesia Start Date/Time: 03/31/22 1617 Procedure: LAMINOTOMY W/DECOMPRESSION NERVE ROOT(S),INCLUDING PARTIAL FACETECTOMY,FORAMINO MIGUEL AND/OR EXCISION HERNIATED DISC; EA ADD'L INTERSPACE,CERVICAL/ LUMBAR (N/A Spine Lumbar) Location: [facility]IN [facility] Surgeons: Juice eSars MD There is no height or weight [...] Caballero APRN.C (more content not included)... Normal [facility] BRIEF OP NOTon 03-31-2022 BRIEF OP NOT HNO ID: [id number] Author: Jorge Echols MD Service: Neurosurgery Author Type: Resident Type: Brief Op Note Filed: 03/31/2022 7:19 PM Note Text: BRIEF OPERATIVE / PROCEDURE NOTE LOG ID: [id number] SURGERY/PROCEDURE DATE: 03/31/2022 INCISION/PROCEDURE START TIME: 5:02 PM INCISION CLOSE/PROCEDURE END TIME: SURGEON(S)/PROCEDURA LIST(S) AND BARTENDERS(S): Surgeon(s) and Role: * Juice Sears MD [...] March 31, 2022 TIME: 7:18 PM Normal [facility] THERAPY NTon 03-31-2022 THERAPY NT HNO ID: [id number] Author: Maria Del Rosario Tatum OT/L Service: Occupational Therapy Author Type: Occupational Therapist Type: Therapy (PT/OT/Speech/Resp) Filed: 03/31/2022 10:50 AM Note Text: OCCUPATIONAL THERAPY MISSED VISIT SERVICE DATE: 03/31/2022 SERVICE TIME: 1049 to 1049 ROOM: [place] [address] Patient not seen due to Hold: Pre-operative Consult. Plan for OR today 03/31, OT to follow up post-op. SIGNATURE: Maria Del Rosario Tatum OT/Monik PATIENT NAME: Saeed Sarabia DATE: March 31, 2022 TIME: 10:50 AM Normal [facility] THERAPY NT HNO ID: [id number] Author: Janee Abdul PT Service: Physical Therapy Author Type: Physical Therapist Type: Therapy (PT/OT/Speech/Resp) Filed: 03/31/2022 8:20 AM Note Text: PHYSICAL THERAPY MISSED VISIT SERVICE DATE: 03/31/2022 SERVICE TIME: 0819 to 0819 ROOM: [place] [address] Patient not seen due to Surgery. Per chart, plan for OR today. PT to follow up post-op. SIGNATURE: Janee Abdul PT PATIENT NAME: Saeed Sarabia DATE: March 31, 2022 TIME: 8:20 AM Normal [facility] XR VERIFY LEVEL B-PRDUP-XOaw 03-31-2022 XR VERIFY LEVEL L-SPINE-NB * * [...] at 5:27 PM via phone conversation and [employer] Teams. IMPRESSION: Intraoperative spinal localization. Lead Massage Therapist: PSCB Transcribe Date/Time: Mar 31 2022 5:25P Dictated by : DEEDEE LYNN MD This examination was interpreted and the report reviewed and electronically signed by: DEEDEE LYNN MD on Mar 31 2022 5:28PM EST [id number] Normal [facility] CONFIRM BLOOD TYPEon 022 ABO O Normal [facility] Comment on above: Order Comment: Speci men Type: BLOOD SPECIMENOrdering Facility: [facility] Address: [address] [place] [address] Performed By: #### C ONABO ####[facility] [id number] [place] [address] [place] Rh Nom (Bld) Positive Normal [facility] Comment on above: Order Comment: Speci men Type: BLOOD SPECIMENOrdering Facility: [facility] Address: [address] [place] [address] Performed By: #### C ONABO ####[facility] [id number] [place] [address] [place] HCG Preg Ur Qlon 03-30-2022 HCG ( test) Ql (U) Negative Normal Negative [facility] Comment on above: Order Comment: Speci men Type: URINE SPECIMENOrdering Facility: [facility] Address: [address] [place] [address] Result Comment: This test is intended to aid in the early detection of . Very dilute urine samples, as indicated by a low specific gravity, may not contain dairy supplies sales representative levels of hCG. This test detects [...] Performed By: #### 2 106-3 ####[facility] LABCLIA [id number] [address] THERAPY NTon 03-30-2022 THERAPY NT HNO ID: [id number] Author: Radha Miller OT/L Service: Occupational Therapy Author Type: Occupational Therapist Type: Therapy (PT/OT/Speech/Resp) Filed: 03/30/2022 8:50 AM Note Text: OCCUPATIONAL THERAPY MISSED VISIT SERVICE DATE: 03/30/2022 SERVICE TIME: 0850 to 0850 ROOM: [place] [address] Patient not seen due to Hold: Pre-operative Consult. Per chart, plan for OR 03/31. OT to follow up post-op. SIGNATURE: Radha Miller OT/L PATIENT NAME: Saeed Sarabia DATE: March 30, 2022 TIME: 8:50 AM Normal [facility] THERAPY NT HNO ID: [id number] Author: Janee Abdul PT Service: Physical Therapy Author Type: Physical Therapist Type: Therapy (PT/OT/Speech/Resp) Filed: 03/30/2022 7:51 AM Note Text: PHYSICAL THERAPY MISSED VISIT SERVICE DATE: 03/30/2022 SERVICE TIME: 0750 to 0750 ROOM: [place] [address] Patient not seen due to Hold: Pre-operative Consult. Per chart, plan for OR 03/31. PT to follow up post-op. SIGNATURE: Janee Abdul PT PATIENT NAME: Saeed Sarabia DATE: March 30, 2022 TIME: 7:50 AM Normal [facility] VDUVLSon 03-30-2022 VDUVLS Non-Invasive Vascular Laboratory [facility] J35 Lower Extremity Venous Duplex Bilateral/Complete Date [...] FANNIE BLANDON Interpreting physician: Britney Ewing MD, LORETO Final 1.3.12.2.1107.5.8.9. [id number] ynamicsSISUID See Link below for Image Normal [facility] Bacteria Ur Culton 2 Bacteria identified Cx Nom (U) ORGANISM ID: 1 10,000 -<50,000 CFU/ml Mixed microbiota Normal [facility] Comment on above: Performed By: #### 6 30-4 #### [facility] LAB CLIA [id number] [address] [place] [address] [place] CONSULTon 03-29-2022 CONSULT HNO ID: [id number] Author: Martin Vazquez MD Service: General Internal [...] auscultation. Go (more content not included)... Normal [facility] ECHOon 03-29-2022 Echocardiography Echocardiography Report: Transthoracic Echo [facility] Bedside Date of service: 03/29/2022 3:52:48 PM APPRENTICE COMBINATION Ordering physician: FANNIE BLANDON Indication: CAD Technologist: Amaris Madison RD Interpreting physician: Dorita Cesar MD PATIENT: Name: [...] a prior CC echocardiographic exam for comparison. * * * Final * * * 1.3.12.2.1107.5.8.9. [id number] ynamicsSISUID Normal [facility] URINALYSIS, DIPSTICK ONLYon 03-29-2022 Bilirubin Ql (U) Negative Normal [facility] Comment on above: Order Comment: Speci men Type: URINE SPECIMENOrdering Facility: [facility] Address: [address] [place] [address] Performed By: #### U A ####[facility] LABCLIA [id number] [place] [address] [place] Clarity (Unsp spec) Clear Normal Clear [facility] Comment on above: Order Comment: Speci men Type: URINE SPECIMENOrdering Facility: [facility] Address: [address] [place] [address] Performed By: #### U A ####[facility] LABCLIA [id number] [place] [address] [place] Color (U) Light Yellow Normal Yellow [facility] Comment on above: Order Comment: Speci men Type: URINE SPECIMENOrdering Facility: [facility] Address: [address] [place], [place] [address] Performed By: #### U A ####[facility] LABCLIA [id number] [address] [place] Glucose Test strip (U) [Mass/Vol] Negative Normal Negative [facility] Comment on above: Order Comment: Speci men Type: URINE SPECIMENOrdering Facility: [facility] Address: [address] [place], [place] [address] Performed By: #### U A ####[facility] LABCLIA [id number] [address] [place] Hemoglobin Ql (U) Negative Normal Negative [facility] Comment on above: Order Comment: Speci men Type: URINE SPECIMENOrdering Facility: [facility] Address: [address] [place], [place] [address] Performed By: #### U A ####[facility] LABCLIA [id number] [address] [place] Ketones Ql (U) Negative Normal Negative [facility] Comment on above: Order Comment: Speci men Type: URINE SPECIMENOrdering Facility: [facility] Address: [address] Performed By: #### U A ####[facility] LABCLIA [id number] [address] [place] Leukocyte esterase Test strip Ql (U) Negative Normal Negative [facility] Comment on above: Order Comment: Speci men Type: URINE SPECIMENOrdering Facility: [facility] Address: [address] [place] [address] Performed By: #### U A ####[facility] LABCLIA [id number] [place] [address] [place] Nitrite Ql (U) Negative Normal Negative [facility] Comment on above: Order Comment: Speci men Type: URINE SPECIMENOrdering Facility: [facility] Address: [address] [place] [address] Performed By: #### U A ####[facility] LABIA [id number] [place] [address] [place] pH (U) 6.0 [pH] Normal 5.0-8.0 [facility] Comment on above: Order Comment: Speci men Type: URINE SPECIMENOrdering Facility: [facility] Address: [address] [place] [address] Performed By: #### U A ####[facility] LABIA [id number] [place] [address] [place] Protein (U) [Mass/Vol] Negative Normal Negative [facility] Comment on above: Order Comment: Speci men Type: URINE SPECIMENOrdering Facility: [facility] Address: [address] [place] [address] Performed By: #### U A ####[facility] LABIA [id number] [place] [address] [place] Specific gravity (U) [Rel density] 1.017 Normal 1.005-1.030 [facility] Comment on above: Order Comment: Speci men Type: URINE SPECIMENOrdering Facility: [facility] Address: [address] [place] [address] Performed By: #### U A ####[facility] LABIA [id number] [place] [address] [place] Urobilinogen Ql (U) Negative Normal Negative [facility] Comment on above: Order Comment: Speci men Type: URINE SPECIMENOrdering Facility: [facility] Address: [address] [place], [place] [address] Performed By: #### U A ####[facility] LABCLIA [id number] [place] [address] [place] Urine culture routineOrdered By: Kieran Scott on 03-29-2022 Bacteria identified Cx Nom (U) 2 Days [facility] Albumin [Mass/volume] in Ser um or PlasmaOrdered By: Kieran Tyler on 03-28-2022 Albumin [Mass/Vol] 2.8 g/dL 3.2-5.5 [facility] Basic metabolic 2000 panelon 03-28-2022 Anion gap [Moles/Vol] 10 mmol/L Normal 9-18 [facility] Comment on above: Order Comment: Speci men Type: BLOOD SPECIMENOrdering Facility: [facility] Address: [address] [place], [place] [address] Performed By: #### 1 988-5, 80737-1 ####[facility] LABCLIA [id number] [place] [address] [place] Calcium [Mass/Vol] 9.4 mg/dL Normal 8.5-10.2 [facility] Comment on above: Order Comment: Speci men Type: BLOOD SPECIMENOrdering Facility: [facility] Address: [address] [place], [place] [address] Performed By: #### 1 988-5, 35169-4 ####[facility] LABCLIA [id number] [place] [address] [place] Chloride [Moles/Vol] 105 mmol/L Normal 97-105 [facility] Comment on above: Order Comment: Speci men Type: BLOOD SPECIMENOrdering Facility: [facility] Address: [address] [place], [place] [address] Performed By: #### 1 988-5, 13079-1 ####[facility] LABCLIA [id number] [place] [address] [place] CO2 [Moles/Vol] 24 mmol/L Normal 22-30 [facility] Comment on above: Order Comment: Speci men Type: BLOOD SPECIMENOrdering Facility: [facility] Address: [address] [place] [address] Performed By: #### 1 988-5, 72567-0 ####[facility] [id number] [address] [place] Creatinine [Mass/Vol] 0.72 mg/dL Normal 0.58-0.96 [facility] Comment on above: Order Comment: Speci men Type: BLOOD SPECIMENOrdering Facility: [facility] Address: [address] [place] [address] Performed By: #### 1 988-5, 74629-1 ####[facility] [id number] [address] [place] ESTIMATED GLOMERULAR FILTRATION RATE 84 mL/min/1.73m??? Normal >=60 [facility] Comment on above: Order Comment: Speci men Type: BLOOD SPECIMENOrdering Facility: [facility] Address: [address] [place] [address] Result Comment: Roz mated Glomerular Filtration Rate [...] actual GFR. Performed By: #### 1 988-5, 98556-6 ####[facility] [id number] [place] [address] [place] Glucose [Mass/Vol] 209 mg/dL High 74-99 [facility] Comment on above: Order Comment: Speci men Type: BLOOD SPECIMENOrdering Facility: [facility] Address: [address] [place], [place] [address] Result Comment: The [place] [employer] Association (ADA) provides guidance for cutoff [...] Standards of Medical Care in Diabetes 2016, [place] [employer]. Diabetes Care. 2016.39(Suppl 1). Performed By: #### 1 988-5, 54705-8 ####[facility] LABCLIA [id number] [place] [address] [place] Potassium [Moles/Vol] 4.2 mmol/L Normal 3.7-5.1 [facility] Comment on above: Order Comment: Speci men Type: BLOOD SPECIMENOrdering Facility: [facility] Address: [address] [place] [address] Performed By: #### 1 988-5, 27390-3 ####[facility] LABCLIA [id number] [place] [address] [place] Sodium [Moles/Vol] 139 mmol/L Normal 136-144 [facility] Comment on above: Order Comment: Speci men Type: BLOOD SPECIMENOrdering Facility: [facility] Address: [address] [place], [place] [address] Performed By: #### 1 988-5, 72736-4 ####[facility] LABCLIA [id number] [place] [address] [place] Urea nitrogen [Mass/Vol] 21 mg/dL Normal 7-21 [facility] Comment on above: Order Comment: Speci men Type: BLOOD SPECIMENOrdering Facility: [facility] Address: [address] [place] [address] Performed By: #### 1 988-5, 67552-9 ####[facility] LABCLIA [id number] [place] [address] [place] Basophils Auto (Bld) [#/Vol] Ordered By: Kieran Tyler on 03-28-2022 Basophils (Bld) [#/Vol] 0.0 10*3/uL 0.0-0.2 [facility] Basophils/100 WBC Auto (Bld) Ordered By: Kieran Tyler on 03-28-2022 Basophils/100 WBC (Bld) 0.6 % . [facility] Blood hemoglobin measurement (mass/volume)Ordered By: Kirean Tyler on 03-28-2022 Hemoglobin (Bld) [Mass/Vol] 13.1 g/dL 11.8-15.4 [facility] Blood leukocytes automated c ount (number/volume)Ordered By: Kieran Tyler on 03-28-2022 WBC (Bld) [#/Vol] 7.1 10*3/uL 4.5-11.0 [facility] CBC W Auto Differential pane l (Bld)on 03-28-2022 Basophils (Bld) [#/Vol] 10*3/uL Normal <0.11 [facility] Comment on above: Order Comment: Speci men Type: BLOOD SPECIMENOrdering Facility: [facility] Address: [address] [address] Performed By: #### 5 7021-8 ####[facility] LABCLIA [id number] [address] [place] Basophils/100 WBC (Bld) 0.2 % Normal [facility] Comment on above: Order Comment: Speci men Type: BLOOD SPECIMENOrdering Facility: [facility] Address: [address] [place] [address] Performed By: #### 5 7021-8 ####[facility] LABCLIA [id number] [place] [address] [place] Differential cell count method Nom (Bld) Auto Normal [facility] Comment on above: Order Comment: Speci men Type: BLOOD SPECIMENOrdering Facility: [facility] Address: [address] [place] [address] Performed By: #### 5 7021-8 ####[facility] LABCLIA [id number] [place] [address] [place] Eosinophils (Bld) [#/Vol] 0.21 10*3/uL Normal <0.46 [facility] Comment on above: Order Comment: Speci men Type: BLOOD SPECIMENOrdering Facility: [facility] Address: [address] [place] [address] Performed By: #### 5 7021-8 ####[facility] LABCLIA [id number] [place] [address] [place] Eosinophils/100 WBC (Bld) 2.5 % Normal [facility] Comment on above: Order Comment: Speci men Type: BLOOD SPECIMENOrdering Facility: [facility] Address: [address] [place], [place] [address] Performed By: #### 5 7021-8 ####[facility] LABCLIA [id number] [place] [address] [place] Erythrocyte distribution width (RBC) [Ratio] 13.0 % Normal 11.5-15.0 [facility] Comment on above: Order Comment: Speci men Type: BLOOD SPECIMENOrdering Facility: [facility] Address: [address] [place], [place] [address] Performed By: #### 5 7021-8 ####[facility] LABCLIA [id number] [place] [address] [place] Hematocrit (Bld) [Volume fraction] 43.1 % Normal 36.0-46.0 [facility] Comment on above: Order Comment: Speci men Type: BLOOD SPECIMENOrdering Facility: [facility] Address: [address] [place] [address] Performed By: #### 5 7021-8 ####[facility] LABCLIA [id number] [place] [address] [place] Hemoglobin (Bld) [Mass/Vol] 14.0 g/dL Normal 11.5-15.5 [facility] Comment on above: Order Comment: Speci men Type: BLOOD SPECIMENOrdering Facility: [facility] Address: [address] [place] [address] Performed By: #### 5 7021-8 ####[facility] LABIA [id number] [address] [place] IMMATURE GRAN % 0.4 % Normal [facility] Comment on above: Order Comment: Speci men Type: BLOOD SPECIMENOrdering Facility: [facility] Address: [address] [place] [address] Performed By: #### 5 7021-8 ####[facility] LABIA [id number] [place] [address] [place] IMMATURE GRAN ABS 0.03 k/uL Normal <0.10 [facility] [facility] Comment on above: Order Comment: Speci men Type: BLOOD SPECIMENOrdering Facility: [facility] Address: [address] [place], [place] [address] Performed By: #### 5 7021-8 ####[facility] LABIA [id number] [place] [address] [place] Lymphocytes (Bld) [#/Vol] 2.70 10*3/uL Normal 1.00-4.00 [facility] Comment on above: Order Comment: Speci men Type: BLOOD SPECIMENOrdering Facility: [facility] Address: [address] [place], [place] [address] Performed By: #### 5 7021-8 ####[facility] LABIA [id number] [address] [place] [facility] Lymphocytes/100 WBC (Bld) 32.6 % Normal [facility] Comment on above: Order Comment: Speci men Type: BLOOD SPECIMENOrdering Facility: [facility] Address: [address] [place], [place] [address] Performed By: #### 5 7021-8 ####[facility] LABIA [id number] [address] [place] MCH (RBC) [Entitic mass] 29.7 pg Normal 26.0-34.0 [facility] Comment on above: Order Comment: Speci men Type: BLOOD SPECIMENOrdering Facility: [facility] Address: [address] [place], [place] [address] Performed By: #### 5 7021-8 ####[facility] [id number] [address] [facility] MCHC (RBC) [Mass/Vol] 32.5 g/dL Normal 30.5-36.0 [facility] Comment on above: Order Comment: Speci men Type: BLOOD SPECIMENOrdering Facility: [facility] Address: [address] [place], [place] [address] Performed By: #### 5 7021-8 ####[facility] LABIA [id number] [address] [place] MCV (RBC) [Entitic vol] 91.3 fL Normal 80.0-100.0 [facility] Comment on above: Order Comment: Speci men Type: BLOOD SPECIMENOrdering Facility: [facility] Address: [address] [place] [address] Performed By: #### 5 7021-8 ####[facility] [id number] [id number], [place] [address] [place] Monocytes (Bld) [#/Vol] 0.68 10*3/uL Normal <0.87 [facility] Comment on above: Order Comment: Speci men Type: BLOOD SPECIMENOrdering Facility: [facility] Address: [address] [place], [place] [address] Performed By: #### 5 7021-8 ####[facility] LABCLIA [id number] [place] [address] [place] Monocytes/100 WBC (Bld) 8.2 % Normal [facility] Comment on above: Order Comment: Speci men Type: BLOOD SPECIMENOrdering Facility: [facility] Address: [address] [place], [place] [address] Performed By: #### 5 7021-8 ####[facility] LABCLIA [id number] [place] [address] [place] Neutrophils (Bld) [#/Vol] 4.63 10*3/uL Normal 1.45-7.50 [facility] Comment on above: Order Comment: Speci men Type: BLOOD SPECIMENOrdering Facility: [facility] Address: [address] [place], [place] [address] Performed By: #### 5 7021-8 ####[facility] LABCLIA [id number] [place] [address] [place] Neutrophils/100 WBC (Bld) 56.1 % Normal [facility] Comment on above: Order Comment: Speci men Type: BLOOD SPECIMENOrdering Facility: [facility] Address: [address] [place], [place] [address] Performed By: #### 5 7021-8 ####[facility] LABCLIA [id number] [place] [address] [place] Nucleated RBC (Bld) [#/Vol] 10*3/uL Normal <0.01 [facility] Comment on above: Order Comment: Speci men Type: BLOOD SPECIMENOrdering Facility: [facility] Address: [address] [place], [place] [address] Performed By: #### 5 7021-8 ####[facility] LABIA [id number] [place] [address] [place] Nucleated RBC/100 WBC (Bld) [Ratio] 0.0 /100 WBC Normal [facility] Comment on above: Order Comment: Speci men Type: BLOOD SPECIMENOrdering Facility: [facility] Address: [address] [place], [place] [address] Performed By: #### 5 7021-8 ####[facility] [id number] [place] [address] [place] Platelet mean volume (Bld) [Entitic vol] 10.0 fL Normal 9.0-12.7 [facility] Comment on above: Order Comment: Speci men Type: BLOOD SPECIMENOrdering Facility: [facility] Address: [address] [place], [place] [address] Performed By: #### 5 7021-8 ####[facility] LABIA [id number] [place] [address] [place] Platelets (Bld) [#/Vol] 240 10*3/uL Normal 150-400 [facility] Comment on above: Order Comment: Speci men Type: BLOOD SPECIMENOrdering Facility: [facility] Address: [address] [place] [address] Performed By: #### 5 7021-8 ####[facility] LABIA [id number] [place] [address] [place] RBC (Bld) [#/Vol] 4.72 10*6/uL Normal 3.90-5.20 [facility] Comment on above: Order Comment: Speci men Type: BLOOD SPECIMENOrdering Facility: [facility] Address: [address] [place] [address] Performed By: #### 5 7021-8 ####[facility] LABCLIA [id number] [place] [address] [place] WBC (Bld) [#/Vol] 8.27 10*3/uL Normal 3.70-11.00 [facility] Comment on above: Order Comment: Speci men Type: BLOOD SPECIMENOrdering Facility: [facility] Address: [address] [place] [address] Performed By: #### 5 7021-8 ####[facility] LABCLIA [id number] [place] [address] [place] CRP SerPl-mCncon 03-28-2022 CRP [Mass/Vol] 0.6 mg/dL Normal <0.9 [facility] Comment on above: Order Comment: Speci men Type: BLOOD SPECIMENOrdering Facility: [facility] Address: [address] [place] [address] Performed By: #### 1 988-5, 64826-0 ####[facility] LABIA [id number] [place] [address] [place] Complete Blood Count Auto Di ffon 03-28-2022 Basophils (Bld) [#/Vol] 0.0 10*3/uL Normal 0.0-0.2 [facility] Comment on above: Result Comment: PERF ORMED BY: [facility] [address] [place] [address] PATHOLOGIST [employer] MANAGER GUIDO ELIZALDE M.D. Performed By: #### G LULS #### Point of Care testing , Basophils/100 WBC (Bld) 0.6 % Normal . [facility] Comment on above: Performed By: #### G LULS #### Point of Care testing , Eosinophils (Bld) [#/Vol] 0.3 10*3/uL Normal 0.0-0.45 [facility] Comment on above: Performed By: #### G LULS #### Point of Care testing , Eosinophils/100 WBC (Bld) 3.9 % Normal . [facility] Comment on above: Performed By: #### G LULS #### Point of Care testing , Erythrocyte distribution width (RBC) [Ratio] 13.7 % Normal 11.9-15.3 [facility] Comment on above: Performed By: #### G LULS #### Point of Care testing , Hematocrit (Bld) [Volume fraction] 38.7 % Normal 34.0-46.4 [facility] Comment on above: Performed By: #### G LULS #### Point of Care testing , Hemoglobin (Bld) [Mass/Vol] 13.1 g/dL Normal 11.8-15.4 [facility] Comment on above: Performed By: #### G LULS #### Point of Care testing , Lymphocytes (Bld) [#/Vol] 2.7 10*3/uL Normal 1.00-4.8 [facility] Comment on above: Performed By: #### G LULS #### Point of Care testing , Lymphocytes/100 WBC (Bld) 37.6 % Normal . [facility] Comment on above: Performed By: #### G LULS #### Point of Care testing , MCH (RBC) [Entitic mass] 30.7 pg Normal 24.7-34.3 [facility] Comment on above: Performed By: #### G LULS #### Point of Care testing , MCV (RBC) [Entitic vol] 90.6 fL Normal 80-100 [facility] Comment on above: Performed By: #### G LULS #### Point of Care testing , Mean Corpuscular HGB Conc 33.9 g/dL Normal 32.0-35.0 [facility] Comment on above: Performed By: #### G LULS #### Point of Care testing , Monocytes (Bld) [#/Vol] 0.6 10*3/uL Normal 0.0-0.8 [facility] Comment on above: Performed By: #### G LULS #### Point of Care testing , Monocytes/100 WBC (Bld) 8.5 % Normal . [facility] Comment on above: Performed By: #### G INOCENTE #### Point of Care testing , Neutrophils (Bld) [#/Vol] 3.5 10*3/uL Normal 1.8-7.7 [facility] Comment on above: Performed By: #### G CLEMENTLS #### Point of Care testing , Neutrophils/100 WBC (Bld) 49.4 % Normal . [facility] Comment on above: Performed By: #### G CLEMENTLS #### Point of Care testing , Nucleated RBC/100 WBC (Bld) [Ratio] 0.2 % Normal 0-0.5 [facility] Comment on above: Performed By: #### G CLEMENTLS #### Point of Care testing , Platelet mean volume (Bld) [Entitic vol] 8.8 fL Normal 6.3-10.7 [facility] Comment on above: Performed By: #### G INOCENTE #### Point of Care testing , Platelets (Bld) [#/Vol] 245 10*3/uL Normal 150-450 [facility] Comment on above: Performed By: #### G INOCENTE #### Point of Care testing , RBC (Bld) [#/Vol] 4.27 10*6/uL Normal 3.60-5.00 [facility] Comment on above: Performed By: #### G CLEMENTLS #### Point of Care testing , WBC (Bld) [#/Vol] 7.1 10*3/uL Normal 4.5-11.0 [facility] Comment on above: Performed By: #### G CLEMENTLS #### Point of Care testing , Comprehensive Metabolic Pane michael 03-28-2022 Alanine Aminotransferase Normal 10-60 [facility] Comment on above: Result Comment: Unac ceptable specimen due to hemolysis. Redraw reordered. Performed By: #### G CLEMENTLS #### Point of Care testing , Albumin [Mass/Vol] 2.8 g/dL Low 3.2-5.5 [facility] Comment on above: Performed By: #### G INOCENTE #### Point of Care testing , Albumin/Globulin [Mass ratio] 1.0 {ratio} Normal [facility] Comment on above: Performed By: #### G LULS #### Point of Care testing , Alkaline Phosphatase Normal 32-92 [facility] Comment on above: Result Comment: Unac ceptable specimen due to hemolysis. Redraw reordered. Performed By: #### G LULS #### Point of Care testing , Aspartate Amino Transferase Normal 10-42 [facility] Comment on above: Result Comment: Unac ceptable specimen due to hemolysis. Redraw reordered. Performed By: #### G LULS #### Point of Care testing , Bilirubin,Total Normal 0.3-1.2 [facility] Comment on above: Result Comment: Unac ceptable specimen due to hemolysis. Redraw reordered. Performed By: #### G LULS #### Point of Care testing , Calcium [Mass/Vol] 8.8 mg/dL Normal 8.2-10.2 [facility] Comment on above: Performed By: #### G LULS #### Point of Care testing , Chloride [Moles/Vol] 104 mmol/L Normal 95-114 [facility] Comment on above: Performed By: #### G LULS #### Point of Care testing , CO2 [Moles/Vol] 25.7 mmol/L Normal 22.0-30.0 [facility] Comment on above: Performed By: #### G LULS #### Point of Care testing , Creatinine [Mass/Vol] 0.74 mg/dL Normal 0.44-1.03 [facility] Comment on above: Performed By: #### G LULS #### Point of Care testing , Creatinine Clr Calc Pharmacy 53.72 [facility] Comment on above: Result Comment: PERF ORMED BY: [facility] [address] [place] [address] PATHOLOGIST [employer] MANAGER GUIDO ELIZALDE M.D. Performed By: #### G LULS #### Point of Care testing , Estimated GFR ( Froylan > 60 Normal [facility] Comment on above: Result Comment: GFR estimated reference range: According to KDOQI guidelines, <60 ml/min/1.73m2 is sufficient to diagnose a patient with chronic kidney disease. Performed By: #### G LULS #### Point of Care testing , Estimated GFR (Non- Am > 60 Normal [facility] Comment on above: Performed By: #### G LULS #### Point of Care testing , Globulin (S) [Mass/Vol] 2.9 g/dL Normal [facility] Comment on above: Performed By: #### G LULS #### Point of Care testing , Glucose [Mass/Vol] 193 mg/dL High 70-100 [facility] Comment on above: Result Comment: Lookout Glucose Reference Range is dependent on time and content of last meal. Glucose of more than 200 mg/dL in a nonstressed, ambulatory subject supports the diagnosis of Diabetes Mellitus. ADA recommended reference range Performed By: #### G LULS #### Point of Care testing , Potassium Normal 3.5-5.1 [facility] Comment on above: Result Comment: Unac ceptable specimen due to hemolysis. Redraw reordered. Performed By: #### G LULS #### Point of Care testing , Protein [Mass/Vol] 5.7 g/dL Low 6.1-7.9 [facility] Comment on above: Performed By: #### G LULS #### Point of Care testing , Sodium [Moles/Vol] 138 mmol/L Normal 136-146 [facility] Comment on above: Performed By: #### G LULS #### Point of Care testing , Urea nitrogen [Mass/Vol] 18 mg/dL Normal 9-23 [facility] Comment on above: Performed By: #### G LULS #### Point of Care testing , Creatinine and Glomerular fi ltration rate.predicted panel (S/P/Bld)Ordered By: Kieran Scott on 03-28-2022 Creatinine [Mass/Vol] 0.74 mg/dL 0.44-1.03 [facility] ESR Westergren method (Bld) [Velocity]on 03-28-2022 ESR (Bld) [Velocity] 29 mm/h High 0-20 [facility] Comment on above: Order Comment: Speci men Type: BLOOD SPECIMENOrdering Facility: [facility] Address: [address] [place] [address] Performed By: #### 4 537-7 ####[facility] LABCLIA [id number] [address] [place] [address] [place] Eosinophils Auto (Bld) [#/Vo l]Ordered By: Kieran Scott on 03-28-2022 Eosinophils (Bld) [#/Vol] 0.3 10*3/uL 0.0-0.45 [facility] Eosinophils/100 WBC Auto (Bl d)Ordered By: Kieran Scott on 03-28-2022 Eosinophils/100 WBC (Bld) 3.9 % . [facility] Erythrocyte distribution wid th Auto (RBC) [Ratio]Ordered By: Kieran Scott on 03-28-2022 Erythrocyte distribution width (RBC) [Ratio] 13.7 % 11.9-15.3 [facility] Estimated glomerular filtrat ion rate (GFR) non- AmericanOrdered By: Kieran Scott on 03-28-2022 GFR/1.73 sq M.predicted among non-blacks MDRD (S/P/Bld) [Vol rate/Area] > 60 mL/Min [facility] Globulin Calc (S) [Mass/Vol] Ordered By: Kieran Scott on 03-28-2022 Globulin (S) [Mass/Vol] 2.9 g/dL [facility] Glucose Glucometer (BldC) [M ass/Vol]Ordered By: Rupert Anthony on 03-28-2022 Glucose [Mass/Vol] 236 mg/dL [facility] Comment on above: Random Glucose Refer ence Range is dependent on time and content of last meal. Glucose of more than 200 mg/dL in a nonstressed, ambulatory subject supports the diagnosis of Diabetes Mellitus. Glucose Poct Glucometerson 0 03-28-2022 Commemt1 Glu2: Cleaned Meter Normal [facility] Comment on above: Result Comment: PERF ORMED BY: [place] [address] PATHOLOGIST [employer]ESS SALES MANAGER GUIDO ELIZALDE M.D. Performed By: #### C BC, PT, PTT, CMP #### [address] Glucose [Mass/Vol] 236 mg/dL Normal [facility] Comment on above: Result Comment: Lookout om Glucose Reference Range is dependent on time and content of last meal. Glucose of more than 200 mg/dL in a nonstressed, ambulatory subject supports the diagnosis of Diabetes Mellitus. Performed By: #### C BC, PT, PTT, CMP #### [address] Glucose [Mass/Vol] 193 mg/dL Normal [facility] Comment on above: Result Comment: Lookout om Glucose Reference Range is dependent on time and content of last meal. Glucose of more than 200 mg/dL in a nonstressed, ambulatory subject supports the diagnosis of Diabetes Mellitus. PERFORMED BY: [place] [address] PATHOLOGIST W[employer]ESS SALES MANAGER GUIDO ELIZALDE M.D. Performed By: #### C BC, PT, PTT, CMP #### [place] [id number] [facility] HISTORY PHYSICALon HISTORY PHYSICAL HNO ID: [id number] Author: Fredy Marquez MD Service: Orthopaedic Surgery Author Type: Resident Type: HANDP Filed: 03/28/2022 7:18 PM Note Text: Attestation signed by Joseu Shirley MD at 03/29/2022 10:02 AM Josue [...] paravertebral musculature Upper Extremity: L UE: D 5/5 B 02/10 T 02/10 WE / WF 02/10 FF / IO /, SILT C5-T1 R UE: (more content not included)... Normal [facility] Hematocrit Auto (Bld) [Volum e fraction]Ordered By: Kieran Scott on 03-28-2022 Hematocrit (Bld) [Volume fraction] 38.7 % 34.0-46.4 [facility] - Chemistry and C hemistry - challengeOrdered By: Kieran Scott on 03-28-2022 AST [Catalytic activity/Vol] 24 U/L 10-42 [facility] - Hematology and Cell countsOrdered By: Kieran Scott on 03-28-2022 Nucleated RBC/100 WBC (Bld) [Ratio] 0.2 % 0-0.5 [facility] Lymphocytes Auto (Bld) [#/Vo l]Ordered By: Kieran Scott on 03-28-2022 Lymphocytes (Bld) [#/Vol] 2.7 10*3/uL 1.00-4.8 [facility] Lymphocytes/100 WBC Auto (Bl d)Ordered By: Kieran Scott on 03-28-2022 Lymphocytes/100 WBC (Bld) 37.6 % . [facility] MCH Auto (RBC) [Entitic mass ]Ordered By: Kieran Scott on 03-28-2022 MCH (RBC) [Entitic mass] 30.7 pg 24.7-34.3 [facility] MCHC Auto (RBC) [Mass/Vol]Or dered By: Kieran Scott on 03-28-2022 MCHC (RBC) [Mass/Vol] 33.9 g/dL 32.0-35.0 [facility] MCV Auto (RBC) [Entitic vol] Ordered By: Kieran Scott on 03-28-2022 MCV (RBC) [Entitic vol] 90.6 fL 80-100 [facility] Monocytes Auto (Bld) [#/Vol] Ordered By: Kieran Scott on 03-28-2022 Monocytes (Bld) [#/Vol] 0.6 10*3/uL 0.0-0.8 [facility] Monocytes/100 WBC Auto (Bld) Ordered By: Kieran Scott on 03-28-2022 Monocytes/100 WBC (Bld) 8.5 % . [facility] NURSING PROGon 03-28-2022 NURSING PROG HNO ID: [id number] Author: Sriram Jane RN Service: ? Author Type: Registered Nurse Type: Nursing Progress Note Filed: 03/28/2022 5:46 PM Note Text: Nursing Progress Note Patient Name: Saeed Sarabia Patient Location: [place] [address] Daily Note: Patient admitted to [facility] from OSH in stable condition. Oriented to room and call light function. Ortho/spine information coordinator paged to notify of arrival. Awaiting orders. Patient resting comfortably with no pain at this time. This note was completed by: Sriram Jane Normal [facility] Neutrophils Auto (Bld) [#/Vo l]Ordered By: Kieran Scott on 03-28-2022 Neutrophils (Bld) [#/Vol] 3.5 10*3/uL 1.8-7.7 [facility] Neutrophils/100 WBC Auto (Bl d)Ordered By: Kieran Scott on 03-28-2022 Neutrophils/100 WBC (Bld) 49.4 % . [facility] No Panel InformationOrdered By: Rupert Anthony on 03-28-2022 Bedside Glucose Comment Glu2: cleaned meter [facility] No Panel InformationOrdered By: Kieran Scott on 03-28-2022 Estimated GFR () > 60 mL/Min [facility] Comment on above: GFR estimated refere nce range: According to KDOQI guidelines, <60 ml/min/1.73m2 is sufficient to diagnose a patient with chronic kidney disease. Pharmacy Creatinine Clearance (Chem 53.72 [facility] PT panel Coag (PPP)on 2021 INR Coag (PPP) [Relative time] 1.0 {INR} Normal 0.9-1.3 [facility] Comment on above: Order Comment: Akilah nieto Type: BLOOD SPECIMENOrdering Facility: [facility] Address: [address] [place], [place] [address] Result Comment: [place] min K Antagonist (VKA) Therapeutic Range: INR 2 to 3 (Target INR of 2.5) Note: For patients treated with VKA drugs, such as warfarin, the [place] [employer] 2012 Guideline recommends [...] 2.5 to 3.5 (target INR of 3). Patriciott GH, et al. Chest 2012, 141:7S-47S Shailesh RA, et al. [facility] 2017, 70: 252-289 Performed By: #### 3 4528-0, 62876-0 ####[facility] LABCLIA [id number] [place] [address] [place] PT Coag (PPP) [Time] 10.4 s Normal 9.7-13.0 [facility] Comment on above: Order Comment: Akilah nieto Type: BLOOD SPECIMENOrdering Facility: [facility] Address: [address] [place] [address] Performed By: #### 3 4528-0, 57091-5 ####[facility] LABCLIA [id number] [place] [address] [place] Platelet mean volume Auto (B ld) [Entitic vol]Ordered By: Kieran Scott on 03-28-2022 Platelet mean volume (Bld) [Entitic vol] 8.8 fL 6.3-10.7 [facility] Platelets Auto (Bld) [#/Vol] Ordered By: Kieran Scott on 03-28-2022 Platelets (Bld) [#/Vol] 245 10*3/uL 150-450 [facility] Protein [Mass/volume] in Ser um or PlasmaOrdered By: Kieran Scott on 03-28-2022 Protein [Mass/Vol] 5.7 g/dL 6.1-7.9 [facility] RBC Auto (Bld) [#/Vol]Ordere d By: Kieran Scott on 03-28-2022 RBC (Bld) [#/Vol] 4.27 10*6/uL 3.60-5.00 [facility] Redraw Jadyn 03-28-2022 ALT [Catalytic activity/Vol] 25 U/L Normal 10-60 [facility] Comment on above: Order Comment: REDRA W Performed By: #### G LULS #### Point of Care testing , Redraw Tripp 03-28-2022 AST [Catalytic activity/Vol] 24 U/L Normal 10-42 [facility] Comment on above: Order Comment: REDRA W Performed By: #### G LULS #### Point of Care testing , Redraw Alkaline Phosphataseo n 03-28-2022 ALP [Catalytic activity/Vol] 50 U/L Normal 32-92 [facility] Comment on above: Order Comment: REDRA W Result Comment: PERF ORMED BY: [facility] [address] [place] [address] PATHOLOGIST W[employer] SALES MANAGER GUIDO ELIZALDE M.D. Performed By: #### G LULS #### Point of Care testing , Redraw Bilirubin,Totalon Bilirubin [Mass/Vol] 0.8 mg/dL Normal 0.3-1.2 [facility] Comment on above: Order Comment: REDRA W Performed By: #### G LULS #### Point of Care testing , Redraw Potassiumon 2 Potassium [Moles/Vol] 4.7 mmol/L Normal 3.5-5.1 [facility] Comment on above: Order Comment: REDRA W Performed By: #### G INOCENTE #### Point of Care testing , SARS-CoV-2 RNA Resp Ql HARMONY+p robeon 03-28-2022 SARS-CoV-2 (COVID-19) RNA HARMONY+probe Ql (Resp) COVID 19 RESULT: SARS-CoV-2 (Agent of COVID-19) Not Detected by RT-PCR or equivalent method. This test has been authorized by FDA under an Emergency Use Authorization (EUA). Normal [facility] Comment on above: Performed By: #### 9 4500-6 ####[facility] LABCLIA [id number] [address] STATES OF [facility] Serum or plasma alanine [place] otransferase measurement without P-5'-P (enzymatic activiOrdered By: Kieran Scott on 03-28-2022 ALT No additional P-5'-P [Catalytic activity/Vol] 25 U/L 10-60 [facility] Serum or plasma albumin/glob ulin mass ratioOrdered By: Kieran Scott on 03-28-2022 Albumin/Globulin [Mass ratio] 1.0 {ratio} [facility] Serum or plasma alkaline dolly sphatase measurement (enzymatic activity/volume)Ordered By: Kieran Scott on 03-28-2022 ALP [Catalytic activity/Vol] 50 U/L 32-92 [facility] Serum or plasma calcium nakul urement (mass/volume)Ordered By: Kieran Scott on 03-28-2022 Calcium [Mass/Vol] 8.8 mg/dL 8.2-10.2 [facility] Serum or plasma chloride elizabeth surement (moles/volume)Ordered By: Kieran Scott on 03-28-2022 Chloride [Moles/Vol] 104 mmol/L 95-114 [facility] Serum or plasma glucose nakul urement (mass/volume)Ordered By: Kieran Scott on 03-28-2022 Glucose [Mass/Vol] 193 mg/dL 70-100 [facility] Comment on above: ADA recommended refe rence range Random Glucose Reference Range is dependent on time and content of last meal. Glucose of more than 200 mg/dL in a nonstressed, ambulatory subject supports the diagnosis of Diabetes Mellitus. Serum or plasma potassium me asurement (moles/volume)Ordered By: Kieran Scott on 03-28-2022 Potassium [Moles/Vol] 4.7 mmol/L 3.5-5.1 [facility] Serum or plasma sodium measu rement (moles/volume)Ordered By: Kieran Scott on 03-28-2022 Sodium [Moles/Vol] 138 mmol/L 136-146 [facility] Serum or plasma total biliru bin measurement (mass/volume)Ordered By: Kieran Scott on 03-28-2022 Bilirubin [Mass/Vol] 0.8 mg/dL 0.3-1.2 [facility] Serum or plasma total carbon dioxide measurement (moles/volume)Ordered By: Kieran Scott on 03-28-2022 CO2 [Moles/Vol] 25.7 mmol/L 22.0-30.0 [facility] Serum or plasma urea nitroge n measurement (mass/volume)Ordered By: Kieran Scott on 03-28-2022 Urea nitrogen [Mass/Vol] 18 mg/dL 9-23 [facility] TYPE + SCREENon 03-28-2022 ABO O Normal [facility] Comment on above: Order Comment: Speci men Type: BLOOD SPECIMENOrdering Facility: [facility] Address: [address] [address] Performed By: #### T SCR ####CC MAIN BLOOD BANKCLIA [id number] [address] HISTORICAL AB SCR STATUS Negative Normal [facility] Comment on above: Order Comment: Speci men Type: BLOOD SPECIMENOrdering Facility: [facility] Address: [address] [address] Performed By: #### T SCR ####CC MAIN BLOOD BANKCLIA [id number] [address] Rh Nom (Bld) Positive Normal [facility] Comment on above: Order Comment: Speci men Type: BLOOD SPECIMENOrdering Facility: [facility] Address: [address] [place] [address] Performed By: #### T SCR ####CC MAIN BLOOD BANKCLIA [id number] [address] TYPE AND SCREEN EXPIRATION 03/31/2022 23:59 Normal [facility] Comment on above: Order Comment: Speci men Type: BLOOD SPECIMENOrdering Facility: [facility] Address: [address] [place] [address] Performed By: #### T SCR ####CC MAIN BLOOD BANKCLIA [id number] [address] XR CHEST 1V FRONTAL PORTon 0 03-28-2022 [...] aortic arch is atherosclerotic. IMPRESSION: See result. Lead Massage Therapist: ROSS Transcribe Date/Time: Mar 28 2022 9:08P Dictated by : LUZ ELENA HONEYCUTT MD This examination was interpreted and the report reviewed and electronically signed by: LUZ ELENA HONEYCUTT MD on Mar 28 2022 9:09PM EST [id number] Normal [facility] aPTT PPPon 03-28-2022 aPTT Coag (PPP) [Time] 23.7 s Normal 23.0-32.4 [facility] Comment on above: Order Comment: Speci men Type: BLOOD SPECIMENOrdering Facility: [facility] Address: [address] [id number] Performed By: #### 3 4528-0, 51327-2 ####[facility] LABCLIA [id number] [facility] [id number] [address] [place] Automated erythrocytes count in urine sediment (number/area)Ordered By: Kieran Scott on 03-27-2022 RBC Auto (Urine sed) [#/Area] 10-19 [HPF] 0-4 [facility] Automated leukocytes count i n urine sediment (number/area)Ordered By: Kieran Scott on 03-27-2022 WBC Auto (Urine sed) [#/Area] 5-9 [HPF] 0-4 [facility] Bilirubin Test strip Ql (U)O rdered By: Kieran Scott on 03-27-2022 Bilirubin Ql (U) Negative Negative [facility] Color Auto (U)Ordered By: Vivek Scott on 03-27-2022 Color (U) Yellow Yellow [facility] Complete Blood Count Auto Di ffon 03-27-2022 Basophils (Bld) [#/Vol] 0.0 10*3/uL Normal 0.0-0.2 [facility] Comment on above: Result Comment: PERF ORMED BY: [facility] [address] [facility] [place] [address] PATHOLOGIST [employer] MANAGER GUIDO ELIZALDE M.D. Performed By: #### C BC, PT, PTT, CMP #### [facility] [address] Basophils/100 WBC (Bld) 0.4 % Normal . [facility] Comment on above: Performed By: #### C BC, PT, PTT, CMP #### [facility] [address] [place] [address] Eosinophils (Bld) [#/Vol] 0.3 10*3/uL Normal 0.0-0.45 [facility] Comment on above: Performed By: #### C BC, PT, PTT, CMP #### [address] Eosinophils/100 WBC (Bld) 4.2 % Normal . [facility] Comment on above: Performed By: #### C BC, PT, PTT, CMP #### [address] Erythrocyte distribution width (RBC) [Ratio] 13.8 % Normal 11.9-15.3 [facility] Comment on above: Performed By: #### C BC, PT, PTT, CMP #### [address] Hematocrit (Bld) [Volume fraction] 40.4 % Normal 34.0-46.4 [facility] Comment on above: Performed By: #### C BC, PT, PTT, CMP #### [address] Hemoglobin (Bld) [Mass/Vol] 13.6 g/dL Normal 11.8-15.4 [facility] Comment on above: Performed By: #### C BC, PT, PTT, CMP #### [address] Lymphocytes (Bld) [#/Vol] 3.0 10*3/uL Normal 1.00-4.8 [facility] Comment on above: Performed By: #### C BC, PT, PTT, CMP #### [address] Lymphocytes/100 WBC (Bld) 36.2 % Normal . [facility] Comment on above: Performed By: #### C BC, PT, PTT, CMP #### [address] MCH (RBC) [Entitic mass] 30.7 pg Normal 24.7-34.3 [facility] Comment on above: Performed By: #### C BC, PT, PTT, CMP #### [facility] [address] MCV (RBC) [Entitic vol] 90.9 fL Normal 80-100 [facility] Comment on above: Performed By: #### C BC, PT, PTT, CMP #### [address] Mean Corpuscular HGB Conc 33.7 g/dL Normal 32.0-35.0 [facility] Comment on above: Performed By: #### C BC, PT, PTT, CMP #### [address] Monocytes (Bld) [#/Vol] 0.8 10*3/uL Normal 0.0-0.8 [facility] Comment on above: Performed By: #### C BC, PT, PTT, CMP #### [address] Monocytes/100 WBC (Bld) 9.6 % Normal . [facility] Comment on above: Performed By: #### C BC, PT, PTT, CMP #### [address] Neutrophils (Bld) [#/Vol] 4.1 10*3/uL Normal 1.8-7.7 [facility] Comment on above: Performed By: #### C BC, PT, PTT, CMP #### [place] [address] [place] Neutrophils/100 WBC (Bld) 49.6 % Normal . [facility] Comment on above: Performed By: #### C BC, PT, PTT, CMP #### [place] [address] [place] Nucleated RBC/100 WBC (Bld) [Ratio] 0.0 % Normal 0-0.5 [facility] Comment on above: Performed By: #### C BC, PT, PTT, CMP #### [place] [address] [place] Platelet mean volume (Bld) [Entitic vol] 8.6 fL Normal 6.3-10.7 [facility] Comment on above: Performed By: #### C BC, PT, PTT, CMP #### [facility] [address] Platelets (Bld) [#/Vol] 240 10*3/uL Normal 150-450 [facility] Comment on above: Performed By: #### C BC, PT, PTT, CMP #### [address] RBC (Bld) [#/Vol] 4.45 10*6/uL Normal 3.60-5.00 [facility] Comment on above: Performed By: #### C BC, PT, PTT, CMP #### [address] WBC (Bld) [#/Vol] 8.2 10*3/uL Normal 4.5-11.0 [facility] Comment on above: Performed By: #### C BC, PT, PTT, CMP #### [address] Comprehensive Metabolic Pane michael 03-27-2022 Albumin [Mass/Vol] 2.9 g/dL Low 3.2-5.5 [facility] Comment on above: Performed By: #### C BC, PT, PTT, CMP #### [address] Albumin/Globulin [Mass ratio] 1.0 {ratio} Normal [facility] Comment on above: Performed By: #### C BC, PT, PTT, CMP #### [facility] [address] [place] [address] ALP [Catalytic activity/Vol] 51 U/L Normal 32-92 [facility] Comment on above: Performed By: #### C BC, PT, PTT, CMP #### [address] ALT [Catalytic activity/Vol] 26 U/L Normal 10-60 [facility] Comment on above: Performed By: #### C BC, PT, PTT, CMP #### [facility] [address] [place] [address] [place] AST [Catalytic activity/Vol] 22 U/L Normal 10-42 [facility] Comment on above: Performed By: #### C BC, PT, PTT, CMP #### [facility] [address] Bilirubin [Mass/Vol] 0.8 mg/dL Normal 0.3-1.2 [facility] Comment on above: Performed By: #### C BC, PT, PTT, CMP #### [facility] [address] Calcium [Mass/Vol] 9.0 mg/dL Normal 8.2-10.2 [facility] Comment on above: Performed By: #### C BC, PT, PTT, CMP #### [facility] [address] Chloride [Moles/Vol] 101 mmol/L Normal 95-114 [facility] Comment on above: Performed By: #### C BC, PT, PTT, CMP #### [facility] [address] [place] [address] [place] CO2 [Moles/Vol] 27.1 mmol/L Normal 22.0-30.0 [facility] Comment on above: Performed By: #### C BC, PT, PTT, CMP #### [facility] [address] [place] [address] [place] Creatinine [Mass/Vol] 0.85 mg/dL Normal 0.44-1.03 [facility] Comment on above: Performed By: #### C BC, PT, PTT, CMP #### [facility] [address] [place] [address] [place] Creatinine Clr Calc Pharmacy 50.56 Normal [facility] Comment on above: Result Comment: PERF ORMED BY: [place] [address] PATHOLOGIST [employer] MANAGER GUIDO ELIZALDE M.D. Performed By: #### C BC, PT, PTT, CMP #### [facility] [address] [place] [address] [place] Estimated GFR ( Froylan > 60 Normal [facility] Comment on above: Result Comment: GFR estimated reference range: According to KDOQI guidelines, <60 ml/min/1.73m2 is sufficient to diagnose a patient with chronic kidney disease. Performed By: #### C BC, PT, PTT, CMP #### [facility] [address] Estimated GFR (Non- Am > 60 Normal [facility] Comment on above: Performed By: #### C BC, PT, PTT, CMP #### [facility] [address] Globulin (S) [Mass/Vol] 3.0 g/dL Normal [facility] Comment on above: Performed By: #### C BC, PT, PTT, CMP #### [address] Glucose [Mass/Vol] 177 mg/dL High 70-100 [facility] Comment on above: Result Comment: [place] Glucose Reference Range is dependent on time and content of last meal. Glucose of more than 200 mg/dL in a nonstressed, ambulatory subject supports the diagnosis of Diabetes Mellitus. ADA recommended reference range Performed By: #### C BC, PT, PTT, CMP #### [address] Potassium [Moles/Vol] 4.0 mmol/L Normal 3.5-5.1 [facility] Comment on above: Performed By: #### C BC, PT, PTT, CMP #### [address] Protein [Mass/Vol] 5.9 g/dL Low 6.1-7.9 [facility] Comment on above: Performed By: #### C BC, PT, PTT, CMP #### [address] Sodium [Moles/Vol] 139 mmol/L Normal 136-146 [facility] Comment on above: Performed By: #### C BC, PT, PTT, CMP #### [facility] [address] [place] [address] [place] Urea nitrogen [Mass/Vol] 23 mg/dL Normal 9-23 [facility] Comment on above: Performed By: #### C BC, PT, PTT, CMP #### [facility] [address] [place] [address] [place] Dipstick and Microscopicon 0 03-27-2022 Appearance (U) Clear Normal Clear [facility] Comment on above: Order Comment: Name Collection Type:: Clean-Voided Midstream Performed By: #### G LULS #### Point of Care testing , Bacteria,Urine None Seen Normal None Seen [facility] Comment on above: Order Comment: Name Collection Type:: Clean-Voided Midstream Performed By: #### G LULS #### Point of Care testing , Bilirubin,Urine Negative Normal Negative [facility] Comment on above: Order Comment: Name Collection Type:: Clean-Voided Midstream Performed By: #### G LULS #### Point of Care testing , Color (U) Yellow Normal Yellow [facility] Comment on above: Order Comment: Name Collection Type:: Clean-Voided Midstream Performed By: #### G LULS #### Point of Care testing , Glucose Ql (U) 500 mg/dL High Normal [facility] Comment on above: Order Comment: Name Collection Type:: Clean-Voided Midstream Performed By: #### G LULS #### Point of Care testing , Hyaline Casts,Urine None Seen Normal 0-8 [facility] Comment on above: Order Comment: Name Collection Type:: Clean-Voided Midstream Result Comment: PERF ORMED BY: [place] [address] PATHOLOGIST [employer] SAL[employer] MANAGER GUIDO ELIZALDE M.D. Performed By: #### G LULS #### Point of Care testing , Ketones Ql (U) Negative Normal Negative [facility] Comment on above: Order Comment: Name Collection Type:: Clean-Voided Midstream Performed By: #### G LULS #### Point of Care testing , Leukocyte esterase Test strip Ql (U) 2+ High Negative [facility] Comment on above: Order Comment: Name Collection Type:: Clean-Voided Midstream Performed By: #### G LULS #### Point of Care testing , Nitrite,Urine Negative Normal Negative [facility] Comment on above: Order Comment: Name Collection Type:: Clean-Voided Midstream Performed By: #### G LULS #### Point of Care testing , Occult Blood,Urine 2+ High Negative [facility] Comment on above: Order Comment: Name Collection Type:: Clean-Voided Midstream Result Comment: PERF ORMED BY: [facility] [address] [place] [address] PATHOLOGIST [employer] SAL[employer] MANAGER GUIDO ELIZALDE M.D. Performed By: #### G LULS #### Point of Care testing , pH (U) 5.5 [pH] Normal 5.0-9.0 [facility] Comment on above: Order Comment: Name Collection Type:: Clean-Voided Midstream Performed By: #### G LULS #### Point of Care testing , Protein,Urine Negative Normal Negative [facility] Comment on above: Order Comment: Name Collection Type:: Clean-Voided Midstream Performed By: #### G LULS #### Point of Care testing , RBC,Urine 10-19 High 0-4 [facility] Comment on above: Order Comment: Name Collection Type:: Clean-Voided Midstream Performed By: #### G LULS #### Point of Care testing , Specificy [place],Urine 1.012 Normal 1.001-1.030 [facility] Comment on above: Order Comment: Name Collection Type:: Clean-Voided Midstream Performed By: #### G LULS #### Point of Care testing , Squamous Epithelial Cell,Urine 0-1 Normal 0-2 [facility] Comment on above: Order Comment: Name Collection Type:: Clean-Voided Midstream Performed By: #### G LULS #### Point of Care testing , Urobilinogen,Urine Normal Normal Normal [facility] Comment on above: Order Comment: Name Collection Type:: Clean-Voided Midstream Performed By: #### G INOCENTE #### Point of Care testing , WBC,Urine 5-9 High 0-4 [facility] Comment on above: Order Comment: Name Collection Type:: Clean-Voided Midstream Performed By: #### G INOCENTE #### Point of Care testing , Glucose Poct Glucometerson 0 03-27-2022 Glucose [Mass/Vol] 164 mg/dL Normal [facility] Comment on above: Result Comment: [place] om Glucose Reference Range is dependent on time and content of last meal. Glucose of more than 200 mg/dL in a nonstressed, ambulatory subject supports the diagnosis of Diabetes Mellitus. PERFORMED BY: [place] [address] PATHOLOGIST W[employer] SAL[employer] MANAGER GUIDO ELIZALDE M.D. Performed By: #### C BC, PT, PTT, CMP #### [facility] [address] [place] [address] [place] Glucose [Mass/Vol] 222 mg/dL Normal [facility] Comment on above: Result Comment: [place] om Glucose Reference Range is dependent on time and content of last meal. Glucose of more than 200 mg/dL in a nonstressed, ambulatory subject supports the diagnosis of Diabetes Mellitus. PERFORMED BY: [place] [address] PATHOLOGIST W[employer]ESS SALES MANAGER GUIDO ELIZALDE M.D. Performed By: #### C BC, PT, PTT, CMP #### [facility] [address] [place] [address] [place] Glucose [Mass/Vol] 256 mg/dL Normal [facility] Comment on above: Result Comment: [place] om Glucose Reference Range is dependent on time and content of last meal. Glucose of more than 200 mg/dL in a nonstressed, ambulatory subject supports the diagnosis of Diabetes Mellitus. PERFORMED BY: [place] [address] PATHOLOGIST W[employer]ESS SALES MANAGER GUIDO ELIZALDE M.D. Performed By: #### C BC, PT, PTT, CMP #### [place] [address] [place] Glucose [Mass/Vol] 202 mg/dL Normal [facility] Comment on above: Result Comment: [facility] Glucose Reference Range is dependent on time and content of last meal. Glucose of more than 200 mg/dL in a nonstressed, ambulatory subject supports the diagnosis of Diabetes Mellitus. PERFORMED BY: [address] [address] PATHOLOGIST W[employer]ESS SALES MANAGER GUIDO ELIZALDE M.D. Performed By: #### C BC, PT, PTT, CMP #### [address] [address] [facility] Ketones Auto test strip (U) [Mass/Vol]Ordered By: Kieran Scott on 03-27-2022 Ketones (U) [Mass/Vol] Negative Negative [facility] - UrinalysisOrder ed By: Kieran Scott on 03-27-2022 Hyaline casts LM Ql (Urine sed) None seen [LPF] 0-8 [facility] Nitrite Test strip Ql (U)Ord ered By: Kieran Scott on 03-27-2022 Nitrite Ql (U) Negative Negative [facility] Protein Auto test strip (U) [Mass/Vol]Ordered By: Kieran Scott on 03-27-2022 Protein (U) [Mass/Vol] Negative Negative [facility] Specific gravity Auto test s trip (U) [Rel density]Ordered By: Kieran Benjaminmood on 03-27-2022 Specific gravity (U) [Rel density] 1.012 1.001-1.030 [facility] Squamous epithelial cells de tection in urine sediment by light microscopyOrdered By: Kieran Scott on 03-27-2022 Epithelial cells.squamous LM Ql (Urine sed) 0-1 [HPF] 0-2 [facility] Urine Cultureon 03-27-2022 Bacteria identified Cx Nom (U) 75,000 colonies/ml mixed bacterial skin contaminants 2 Days PERFORMED BY: [address] [address] PATHOLOGIST W[employer] SALES MANAGER GUIDO ELIZALDE M.D. [facility] Comment on above: Performed By: #### G LULS #### Point of Care testing , Urine bacteria detection by automated methodOrdered By: Kieran Scott on 03-27-2022 Bacteria Auto Ql (U) None seen None Seen [facility] Urine clarity by refractomet ry automatedOrdered By: Kieran Scott on 03-27-2022 Clarity Refractometry automated (U) Clear Clear [facility] Urine culture routineOrdered By: Kieran Scott on 03-27-2022 Bacteria identified Cx Nom (U) 2 Days [facility] Urine glucose measurement by automated test strip (mass/volume)Ordered By: Kieran Scott on 03-27-2022 Glucose Auto test strip (U) [Mass/Vol] 500 mg/dL Normal [facility] Urine hemoglobin detection b y automated test stripOrdered By: Kieran Scott on 03-27-2022 Hemoglobin Auto test strip Ql (U) 2+ Negative [facility] Urine leukocyte esterase det ection by automated test stripOrdered By: Kieran Scott on 03-27-2022 Leukocyte esterase Auto test strip Ql (U) 2+ Negative [facility] Urobilinogen Auto test strip (U) [Mass/Vol]Ordered By: Kieran Scott on 03-27-2022 Urobilinogen (U) [Mass/Vol] Normal mg/dL Normal [facility] pH Auto test strip (U)Ordere d By: Kieran Scott on 03-27-2022 pH (U) 5.5 [pH] 5.0-9.0 [facility] Glucose Poct Glucometerson 0 03-26-2022 Commemt1 Glu2: Cleaned Meter Normal [facility] Comment on above: Result Comment: PERF ORMED BY: [facility] [address] [place] [address] PATHOLOGIST W[employer] SAL[employer] MANAGER GUIDO ELIZALDE M.D. Performed By: #### G LULS #### Point of Care testing , Glucose [Mass/Vol] 263 mg/dL Normal [facility] Comment on above: Result Comment: [facility] Glucose Reference Range is dependent on time and content of last meal. Glucose of more than 200 mg/dL in a nonstressed, ambulatory subject supports the diagnosis of Diabetes Mellitus. Performed By: #### G LULS #### Point of Care testing , Commemt1 Glu2: Cleaned Meter [facility] Comment on above: Result Comment: PERF ORMED BY: [place] [address] PATHOLOGIST W[employer] SALES MANAGER GUIDO ELIZALDE M.D. Performed By: #### C BC, PT, PTT, CMP #### [address] Glucose [Mass/Vol] 232 mg/dL Normal [facility] Comment on above: Result Comment: [place] om Glucose Reference Range is dependent on time and content of last meal. Glucose of more than 200 mg/dL in a nonstressed, ambulatory subject supports the diagnosis of Diabetes Mellitus. Performed By: #### C BC, PT, PTT, CMP #### [address] Commemt1 Glu2: Cleaned Meter [facility] Comment on above: Result Comment: PERF ORMED BY: [place] [address] PATHOLOGIST W[employer] SALES MANAGER GUIDO ELIZALDE M.D. Performed By: #### C BC, PT, PTT, CMP #### [place] [address] [place] Glucose [Mass/Vol] 283 mg/dL Normal [facility] Comment on above: Result Comment: [place] om Glucose Reference Range is dependent on time and content of last meal. Glucose of more than 200 mg/dL in a nonstressed, ambulatory subject supports the diagnosis of Diabetes Mellitus. Performed By: #### C BC, PT, PTT, CMP #### [address] Commemt1 Glu2: Cleaned Meter [facility] Comment on above: Result Comment: PERF ORMED BY: [place] [address] PATHOLOGIST W[employer] SALES MANAGER GUIDO ELIZALDE M.D. Performed By: #### C BC, PT, PTT, CMP #### [facility] [address] [place] [address] [place] Glucose [Mass/Vol] 191 mg/dL Normal [facility] Comment on above: Result Comment: [place] Glucose Reference Range is dependent on time and content of last meal. Glucose of more than 200 mg/dL in a nonstressed, ambulatory subject supports the diagnosis of Diabetes Mellitus. Performed By: #### C BC, PT, PTT, CMP #### [facility] [address] [place] [address] [place] Dipstick and Microscopicon 0 03-25-2022 Appearance (U) Clear Normal Clear [facility] Comment on above: Order Comment: Name Collection Type:: Claire Catheter Performed By: #### C BC, PT, PTT, CMP #### [facility] [address] Bacteria,Urine None Seen Normal None Seen [facility] Comment on above: Order Comment: Name Collection Type:: Claire Catheter Performed By: #### C BC, PT, PTT, CMP #### [facility] [address] [place] [address] [place] Bilirubin,Urine Negative Normal Negative [facility] Comment on above: Order Comment: Name Collection Type:: Claire Catheter Performed By: #### C BC, PT, PTT, CMP #### [facility] [address] [place] [id number] [place] Color (U) Yellow Normal Yellow [facility] Comment on above: Order Comment: Name Collection Type:: Claire Catheter Performed By: #### C BC, PT, PTT, CMP #### [facility] [address] [id number] [place] Glucose Ql (U) Normal Normal Normal [facility] Comment on above: Order Comment: Name Collection Type:: Claire Catheter Performed By: #### C BC, PT, PTT, CMP #### [facility] [address] [id number] [place] Hyaline Casts,Urine 0-8 Normal 0-8 [facility] Comment on above: Order Comment: Name Collection Type:: Claire Catheter Result Comment: PERF ORMED BY: [place] [address] PATHOLOGIST W[employer] SALES MANAGER GUIDO ELIZALDE M.D. Performed By: #### C BC, PT, PTT, CMP #### [place] [address] [place] Ketones Ql (U) Negative Normal Negative [facility] Comment on above: Order Comment: Name Collection Type:: Claire Catheter Performed By: #### C BC, PT, PTT, CMP #### [address] Leukocyte esterase Test strip Ql (U) 3+ High Negative [facility] Comment on above: Order Comment: Name Collection Type:: Claire Catheter Performed By: #### C BC, PT, PTT, CMP #### [place] [address] [place] Nitrite,Urine Negative Normal Negative [facility] Comment on above: Order Comment: Name Collection Type:: Claire Catheter Performed By: #### C BC, PT, PTT, CMP #### [place] [address] [place] Occult Blood,Urine 3+ High Negative [facility] Comment on above: Order Comment: Name Collection Type:: Claire Catheter Result Comment: PERF ORMED BY: [place] [address] PATHOLOGIST WIRELESS SALES MANAGER GUIDO ELIZALDE M.D. Performed By: #### C BC, PT, PTT, CMP #### [place] [address] [place] pH (U) 6.0 [pH] Normal 5.0-9.0 [facility] Comment on above: Order Comment: Name Collection Type:: Claire Catheter Performed By: #### C BC, PT, PTT, CMP #### [place] [id number] [place] Protein (U) [Mass/Vol] 30 mg/dL High Negative [facility] Comment on above: Order Comment: Name Collection Type:: Claire Catheter Performed By: #### C BC, PT, PTT, CMP #### [facility] [address] [place] [address] RBC,Urine Innumerable High 0-4 [facility] Comment on above: Order Comment: Name Collection Type:: Claire Catheter Performed By: #### C BC, PT, PTT, CMP #### [facility] [address] [place] [address] Specificy [place],Urine 1.024 Normal 1.001-1.030 [facility] Comment on above: Order Comment: Name Collection Type:: Claire Catheter Performed By: #### C BC, PT, PTT, CMP #### [address] Squamous Epithelial Cell,Urine 0-1 Normal 0-2 [facility] Comment on above: Order Comment: Name Collection Type:: Claire Catheter Performed By: #### C BC, PT, PTT, CMP #### [address] Urobilinogen,Urine Normal Normal Normal [facility] Comment on above: Order Comment: Name Collection Type:: Claire Catheter Performed By: #### C BC, PT, PTT, CMP #### [address] WBC,Urine 20-49 High 0-4 [facility] Comment on above: Order Comment: Name Collection Type:: Claire Catheter Performed By: #### C BC, PT, PTT, CMP #### [address] Glucose Poct Glucometerson 0 03-25-2022 Glucose [Mass/Vol] 267 mg/dL Normal [facility] Comment on above: Result Comment: [facility] Glucose Reference Range is dependent on time and content of last meal. Glucose of more than 200 mg/dL in a nonstressed, ambulatory subject supports the diagnosis of Diabetes Mellitus. PERFORMED BY: [place] [address] PATHOLOGIST WIRELESS SALES MANAGER GUIDO ELIZALDE M.D. Performed By: #### C BC, PT, PTT, CMP #### [address] Commemt1 Glu2: Cleaned Meter [facility] Comment on above: Result Comment: PERF ORMED BY: [place] [address] PATHOLOGIST WIRELESS SALES MANAGER GUIDO ELIZALDE M.D. Performed By: #### C BC, PT, PTT, CMP #### [address] Glucose [Mass/Vol] 190 mg/dL Normal [facility] Comment on above: Result Comment: [place] Glucose Reference Range is dependent on time and content of last meal. Glucose of more than 200 mg/dL in a nonstressed, ambulatory subject supports the diagnosis of Diabetes Mellitus. Performed By: #### C BC, PT, PTT, CMP #### [address] Commemt1 Glu2: Cleaned Meter [facility] Comment on above: Result Comment: PERF ORMED BY: [place] [address] PATHOLOGIST WIRELESS SALES MANAGER GUIDO ELIZALDE M.D. Performed By: #### C BC, PT, PTT, CMP #### [place] [address] [place] Glucose [Mass/Vol] 192 mg/dL Normal [facility] Comment on above: Result Comment: [place] Glucose Reference Range is dependent on time and content of last meal. Glucose of more than 200 mg/dL in a nonstressed, ambulatory subject supports the diagnosis of Diabetes Mellitus. Performed By: #### C BC, PT, PTT, CMP #### [address] Commemt1 Glu2: Cleaned Meter [facility] Comment on above: Result Comment: PERF ORMED BY: [place] [address] PATHOLOGIST WIRELESS SALES MANAGER GUIDO ELIZALDE M.D. Performed By: #### C BC, PT, PTT, CMP #### [address] Glucose [Mass/Vol] 146 mg/dL Normal [facility] Comment on above: Result Comment: [facility] Glucose Reference Range is dependent on time and content of last meal. Glucose of more than 200 mg/dL in a nonstressed, ambulatory subject supports the diagnosis of Diabetes Mellitus. Performed By: #### C BC, PT, PTT, CMP #### [address] Urine Cultureon 03-25-2022 Bacteria identified Cx Nom (U) Urine Culture Results 75,000 colonies/ml Mixed Bacterial Skin Contaminants 2 Days PERFORMED BY: [place] [address] PATHOLOGIST WIRELESS SALES MANAGER GUIDO ELIZALDE M.D. [facility] Comment on above: Performed By: #### C BC, PT, PTT, CMP #### [address] Basic Metabolic Panelon 03-09 Calcium [Mass/Vol] 9.0 mg/dL Normal 8.2-10.2 [facility] Comment on above: Performed By: #### C BC, PT, PTT, CMP #### [address] Chloride [Moles/Vol] 102 mmol/L Normal 95-114 [facility] Comment on above: Performed By: #### C BC, PT, PTT, CMP #### [address] CO2 [Moles/Vol] 24.3 mmol/L Normal 22.0-30.0 [facility] Comment on above: Performed By: #### C BC, PT, PTT, CMP #### [address] Creatinine [Mass/Vol] 1.00 mg/dL Normal 0.44-1.03 [facility] Comment on above: Performed By: #### C BC, PT, PTT, CMP #### [address] Creatinine Clr Calc Pharmacy 42.78 [facility] Comment on above: Result Comment: PERF ORMED BY: [place] [address] PATHOLOGIST WIRELESS SALES MANAGER GUIDO ELIZALDE M.D. Performed By: #### C BC, PT, PTT, CMP #### [address] Estimated GFR ( Froylan > 60 [facility] Comment on above: Result Comment: GFR estimated reference range: According to KDOQI guidelines, <60 ml/min/1.73m2 is sufficient to diagnose a patient with chronic kidney disease. Performed By: #### C BC, PT, PTT, CMP #### [address] Estimated GFR (Non- Am 53 [facility] Comment on above: Performed By: #### C BC, PT, PTT, CMP #### [address] Glucose [Mass/Vol] 351 mg/dL High 70-100 [facility] Comment on above: Result Comment: [place] Glucose Reference Range is dependent on time and content of last meal. Glucose of more than 200 mg/dL in a nonstressed, ambulatory subject supports the diagnosis of Diabetes Mellitus. ADA recommended reference range Performed By: #### C BC, PT, PTT, CMP #### [place] [address] [place] Potassium [Moles/Vol] 4.6 mmol/L Normal 3.5-5.1 [facility] Comment on above: Performed By: #### C BC, PT, PTT, CMP #### [address] Sodium [Moles/Vol] 137 mmol/L Normal 136-146 [facility] Comment on above: Performed By: #### C BC, PT, PTT, CMP #### [address] Urea nitrogen [Mass/Vol] 30 mg/dL High 9-23 [facility] Comment on above: Performed By: #### C BC, PT, PTT, CMP #### [place] [id number] [facility] SARS-CoV-2 (COVID-19) RNA HARMONY+probe Ql (Unsp spec) Negative Normal Negative [facility] Comment on above: Order Comment: Healt hcare Worker?: N Result Comment: Testing for SARS-CoV-2 by RT-PCR This test was developed and its performance characteristics determined by [employer] ([employer]) and validated at the [facility]. This test has not been FDA cleared [...] is terminated or revoked sooner. PERFORMED BY: [place] [address] PATHOLOGIST WIRELESS SALES MANAGER GUIDO ELIZALDE M.D. Performed By: #### G LULS #### Point of Care testing , COVID-19 Positive/NegativeOr dered By: Howard Rivera on 03-24-2022 SARS-CoV-2 (COVID-19) N gene HARMONY+probe Ql (Resp) Negative Negative [facility] Comment on above: Testing for SARS-CoV -2 by RT-PCR This test was developed and its performance characteristics determined by [employer] ([employer]) and validated at the [facility]. This test has not been FDA cleared [...] Basophils (Bld) [#/Vol] 0.0 10*3/uL Normal 0.0-0.2 [facility] Comment on above: Result Comment: PERF ORMED BY: [place] [address] PATHOLOGIST WIRELESS SALES MANAGER GUIDO ELIZALDE M.D. Performed By: #### C BC, PT, PTT, CMP #### [facility] [address] [place] [address] Basophils/100 WBC (Bld) 0.1 % Normal . [facility] Comment on above: Performed By: #### C BC, PT, PTT, CMP #### [facility] [address] [place] [address] Eosinophils (Bld) [#/Vol] 0.0 10*3/uL Normal 0.0-0.45 [facility] Comment on above: Performed By: #### C BC, PT, PTT, CMP #### [facility] [address] [place] [address] Eosinophils/100 WBC (Bld) 0.0 % Normal . [facility] Comment on above: Performed By: #### C BC, PT, PTT, CMP #### [address] Erythrocyte distribution width (RBC) [Ratio] 13.5 % Normal 11.9-15.3 [facility] Comment on above: Performed By: #### C BC, PT, PTT, CMP #### [address] Hematocrit (Bld) [Volume fraction] 41.1 % Normal 34.0-46.4 [facility] Comment on above: Performed By: #### C BC, PT, PTT, CMP #### [address] Hemoglobin (Bld) [Mass/Vol] 13.5 g/dL Normal 11.8-15.4 [facility] Comment on above: Performed By: #### C BC, PT, PTT, CMP #### [address] Lymphocytes (Bld) [#/Vol] 0.8 10*3/uL Low 1.00-4.8 [facility] Comment on above: Performed By: #### C BC, PT, PTT, CMP #### [address] Lymphocytes/100 WBC (Bld) 11.1 % Normal . [facility] Comment on above: Performed By: #### C BC, PT, PTT, CMP #### [address] MCH (RBC) [Entitic mass] 30.0 pg Normal 24.7-34.3 [facility] Comment on above: Performed By: #### C BC, PT, PTT, CMP #### [address] MCV (RBC) [Entitic vol] 91.0 fL Normal 80-100 [facility] Comment on above: Performed By: #### C BC, PT, PTT, CMP #### [address] Mean Corpuscular HGB Conc 33.0 g/dL Normal 32.0-35.0 [facility] Comment on above: Performed By: #### C BC, PT, PTT, CMP #### [address] Monocytes (Bld) [#/Vol] 0.1 10*3/uL Normal 0.0-0.8 [facility] Comment on above: Performed By: #### C BC, PT, PTT, CMP #### [facility] [address] Monocytes/100 WBC (Bld) 0.8 % Normal . [facility] Comment on above: Performed By: #### C BC, PT, PTT, CMP #### [facility] [address] Neutrophils (Bld) [#/Vol] 6.6 10*3/uL Normal 1.8-7.7 [facility] Comment on above: Performed By: #### C BC, PT, PTT, CMP #### [facility] [address] Neutrophils/100 WBC (Bld) 88.0 % Normal . [facility] Comment on above: Performed By: #### C BC, PT, PTT, CMP #### [facility] [address] Nucleated RBC/100 WBC (Bld) [Ratio] 0.0 % Normal 0-0.5 [facility] Comment on above: Performed By: #### C BC, PT, PTT, CMP #### [address] Platelet mean volume (Bld) [Entitic vol] 8.1 fL Normal 6.3-10.7 [facility] Comment on above: Performed By: #### C BC, PT, PTT, CMP #### [facility] [address] [place] [address] [place] Platelets (Bld) [#/Vol] 252 10*3/uL Normal 150-450 [facility] Comment on above: Performed By: #### C BC, PT, PTT, CMP #### [place] [address] [place] RBC (Bld) [#/Vol] 4.52 10*6/uL Normal 3.60-5.00 [facility] Comment on above: Performed By: #### C BC, PT, PTT, CMP #### [facility] [address] WBC (Bld) [#/Vol] 7.5 10*3/uL Normal 4.5-11.0 [facility] Comment on above: Performed By: #### C BC, PT, PTT, CMP #### [facility] [address] [place] [address] [place] Glucose Glucometer (BldC) [M ass/Vol]Ordered By: Perlita Gautam on 03-24-2022 Glucose [Mass/Vol] 218 mg/dL [facility] Comment on above: Random Glucose Refer ence Range is dependent on time and content of last meal. Glucose of more than 200 mg/dL in a nonstressed, ambulatory subject supports the diagnosis of Diabetes Mellitus. Glucose Poct Glucometerson 0 03-24-2022 Glucose [Mass/Vol] 224 mg/dL Normal [facility] Comment on above: Result Comment: [place] Glucose Reference Range is dependent on time and content of last meal. Glucose of more than 200 mg/dL in a nonstressed, ambulatory subject supports the diagnosis of Diabetes Mellitus. PERFORMED BY: [place] [address] PATHOLOGIST WIRELESS SALES MANAGER GUIDO ELIZALDE M.D. Performed By: #### C BC, PT, PTT, CMP #### [facility] [address] Commemt1 Glu2: Cleaned Meter Normal [facility] Comment on above: Result Comment: PERF ORMED BY: [place] [address] PATHOLOGIST WIRELESS SALES MANAGER GUIDO ELIZALDE M.D. Performed By: #### C BC, PT, PTT, CMP #### [facility] [address] Glucose [Mass/Vol] 306 mg/dL Normal [facility] Comment on above: Result Comment: [place] Glucose Reference Range is dependent on time and content of last meal. Glucose of more than 200 mg/dL in a nonstressed, ambulatory subject supports the diagnosis of Diabetes Mellitus. Performed By: #### C BC, PT, PTT, CMP #### [address] Commemt1 Glu2: Cleaned Meter Normal [facility] Comment on above: Result Comment: PERF ORMED BY: [place] [address] PATHOLOGIST WIRELESS SALES MANAGER GUIDO ELIZALDE M.D. Performed By: #### C BC, PT, PTT, CMP #### [address] Glucose [Mass/Vol] 392 mg/dL Normal [facility] Comment on above: Result Comment: [place] Glucose Reference Range is dependent on time and content of last meal. Glucose of more than 200 mg/dL in a nonstressed, ambulatory subject supports the diagnosis of Diabetes Mellitus. Performed By: #### C BC, PT, PTT, CMP #### [address] Glucose [Mass/Vol] 277 mg/dL Normal [facility] Comment on above: Result Comment: [place] Glucose Reference Range is dependent on time and content of last meal. Glucose of more than 200 mg/dL in a nonstressed, ambulatory subject supports the diagnosis of Diabetes Mellitus. PERFORMED BY: [place] [address] PATHOLOGIST WIRELESS SALES MANAGER GUIDO ELIZALDE M.D. Performed By: #### C BC, PT, PTT, CMP #### [address] Glucose [Mass/Vol] 218 mg/dL Normal [facility] Comment on above: Result Comment: [place] Glucose Reference Range is dependent on time and content of last meal. Glucose of more than 200 mg/dL in a nonstressed, ambulatory subject supports the diagnosis of Diabetes Mellitus. PERFORMED BY: [place] [address] PATHOLOGIST WIRELESS SALES MANAGER GUIDO ELIZALDE M.D. Performed By: #### C BC, PT, PTT, CMP #### [facility] [address] [place] [id number] [facility] Laboratory - Microbiology an d Antimicrobial susceptibilityOrdered By: Howard Rivera on 03-24-2022 SARS-CoV-2 (COVID-19) RNA HARMONY+probe Ql (Unsp spec) N/A [facility] Activated partial thrombopla stin time (aPTT) in platelet poor plasma by coagulation aOrdered By: Howard Rivera on 03-23-2022 aPTT Coag (PPP) [Time] 32.2 s 25.1-36.5 [facility] Albumin [Mass/volume] in Ser um or PlasmaOrdered By: Howard Rivera on 03-23-2022 Albumin [Mass/Vol] 3.6 g/dL 3.2-5.5 [facility] Basophils Auto (Bld) [#/Vol] Ordered By: Howard Rivera on 03-23-2022 Basophils (Bld) [#/Vol] 0.1 10*3/uL 0.0-0.2 [facility] Basophils/100 WBC Auto (Bld) Ordered By: Howard Rivera on 03-23-2022 Basophils/100 WBC (Bld) 0.6 % [facility] Bilirubin Test strip Ql (U)O rdered By: Howard Rivera on 03-23-2022 Bilirubin Ql (U) Negative Negative [facility] Blood hemoglobin measurement (mass/volume)Ordered By: Howard Rivera on 03-23-2022 Hemoglobin (Bld) [Mass/Vol] 14.3 g/dL 11.8-15.4 [facility] Blood leukocytes automated c ount (number/volume)Ordered By: Howard Rivera on 03-23-2022 WBC (Bld) [#/Vol] 8.6 10*3/uL 4.5-11.0 [facility] COVID-19 Antigenon COVID-19 Antigen Healthcare Worker?: N Reference Range: [...] developed and its performance characteristic determined by [employer] and validated at [facility]. This test has not been FDA cleared [...] for SARS Antigen by DRAKE PERFORMED BY: [place] [address] PATHOLOGIST WIRELESS SALES MANAGER GUIDO ELIZALDE M.D. [facility] Comment on above: Performed By: #### C BC, PT, PTT, CMP #### [facility] [address] [place] [address] COVID-19 SOFIAOrdered By: Jed Rivera on 03-23-2022 SARS-CoV+SARS-CoV-2 (COVID-19) Ag IA.rapid Ql (Resp) Negative Negative [facility] Comment on above: This is a duplicate Cecily SARS Antigen (DRAKE) result to be used for statistical tracking purpose only. Color Auto (U)Ordered By: Jed Rivera on 03-23-2022 Color (U) Yellow Yellow [facility] Complete Blood Count Auto Di ffon 03-23-2022 Basophils (Bld) [#/Vol] 0.1 10*3/uL Normal 0.0-0.2 [facility] Comment on above: Result Comment: PERF ORMED BY: [place] [address] PATHOLOGIST WIRELESS SALES MANAGER GUIDO ELIZALDE M.D. Performed By: #### C BC, PT, PTT, CMP #### [address] Basophils/100 WBC (Bld) 0.6 % Normal . [facility] Comment on above: Performed By: #### C BC, PT, PTT, CMP #### [address] Eosinophils (Bld) [#/Vol] 0.2 10*3/uL Normal 0.0-0.45 [facility] Comment on above: Performed By: #### C BC, PT, PTT, CMP #### [address] Eosinophils/100 WBC (Bld) 2.3 % Normal . [facility] Comment on above: Performed By: #### C BC, PT, PTT, CMP #### [address] Erythrocyte distribution width (RBC) [Ratio] 13.8 % Normal 11.9-15.3 [facility] Comment on above: Performed By: #### C BC, PT, PTT, CMP #### [address] Hematocrit (Bld) [Volume fraction] 43.4 % Normal 34.0-46.4 [facility] Comment on above: Performed By: #### C BC, PT, PTT, CMP #### [address] Hemoglobin (Bld) [Mass/Vol] 14.3 g/dL Normal 11.8-15.4 [facility] Comment on above: Performed By: #### C BC, PT, PTT, CMP #### [address] [place] [address] [place] Lymphocytes (Bld) [#/Vol] 3.3 10*3/uL Normal 1.00-4.8 [facility] Comment on above: Performed By: #### C BC, PT, PTT, CMP #### [facility] [address] Lymphocytes/100 WBC (Bld) 38.7 % Normal . [facility] Comment on above: Performed By: #### C BC, PT, PTT, CMP #### [address] MCH (RBC) [Entitic mass] 29.9 pg Normal 24.7-34.3 [facility] Comment on above: Performed By: #### C BC, PT, PTT, CMP #### [address] MCV (RBC) [Entitic vol] 91.0 fL Normal 80-100 [facility] Comment on above: Performed By: #### C BC, PT, PTT, CMP #### [address] Mean Corpuscular HGB Conc 32.9 g/dL Normal 32.0-35.0 [facility] Comment on above: Performed By: #### C BC, PT, PTT, CMP #### [address] Monocytes (Bld) [#/Vol] 0.8 10*3/uL Normal 0.0-0.8 [facility] Comment on above: Performed By: #### C BC, PT, PTT, CMP #### [place] [address] [place] Monocytes/100 WBC (Bld) 9.2 % Normal . [facility] Comment on above: Performed By: #### C BC, PT, PTT, CMP #### [address] Neutrophils (Bld) [#/Vol] 4.2 10*3/uL Normal 1.8-7.7 [facility] Comment on above: Performed By: #### C BC, PT, PTT, CMP #### [address] Neutrophils/100 WBC (Bld) 49.2 % Normal . [facility] Comment on above: Performed By: #### C BC, PT, PTT, CMP #### [address] Nucleated RBC/100 WBC (Bld) [Ratio] 0.0 % Normal 0-0.5 [facility] Comment on above: Performed By: #### C BC, PT, PTT, CMP #### [address] Platelet mean volume (Bld) [Entitic vol] 7.8 fL Normal 6.3-10.7 [facility] Comment on above: Performed By: #### C BC, PT, PTT, CMP #### [address] Platelets (Bld) [#/Vol] 295 10*3/uL Normal 150-450 [facility] Comment on above: Performed By: #### C BC, PT, PTT, CMP #### [address] RBC (Bld) [#/Vol] 4.77 10*6/uL Normal 3.60-5.00 [facility] Comment on above: Performed By: #### C BC, PT, PTT, CMP #### [address] WBC (Bld) [#/Vol] 8.6 10*3/uL Normal 4.5-11.0 [facility] Comment on above: Performed By: #### C BC, PT, PTT, CMP #### [address] Comprehensive Metabolic Pane michael 03-23-2022 Albumin [Mass/Vol] 3.6 g/dL Normal 3.2-5.5 [facility] Comment on above: Performed By: #### C BC, PT, PTT, CMP #### [facility] [address] [place] [address] [place] Albumin/Globulin [Mass ratio] 1.1 {ratio} Normal [facility] Comment on above: Performed By: #### C BC, PT, PTT, CMP #### [facility] [address] ALP [Catalytic activity/Vol] 48 U/L Normal 32-92 [facility] Comment on above: Performed By: #### C BC, PT, PTT, CMP #### [facility] [address] ALT [Catalytic activity/Vol] 18 U/L Normal 10-60 [facility] Comment on above: Performed By: #### C BC, PT, PTT, CMP #### [facility] [address] AST [Catalytic activity/Vol] 22 U/L Normal 10-42 [facility] Comment on above: Performed By: #### C BC, PT, PTT, CMP #### [facility] [address] Bilirubin [Mass/Vol] 0.6 mg/dL Normal 0.3-1.2 [facility] Comment on above: Performed By: #### C BC, PT, PTT, CMP #### [facility] [address] Calcium [Mass/Vol] 9.6 mg/dL Normal 8.2-10.2 [facility] Comment on above: Performed By: #### C BC, PT, PTT, CMP #### [facility] [address] [place] [address] [place] Chloride [Moles/Vol] 103 mmol/L Normal 95-114 [facility] Comment on above: Performed By: #### C BC, PT, PTT, CMP #### [facility] [address] CO2 [Moles/Vol] 27.4 mmol/L Normal 22.0-30.0 [facility] Comment on above: Performed By: #### C BC, PT, PTT, CMP #### [facility] [address] Creatinine [Mass/Vol] 0.92 mg/dL Normal 0.44-1.03 [facility] Comment on above: Performed By: #### C BC, PT, PTT, CMP #### [facility] [address] Creatinine Clr Calc Pharmacy 46.80 [facility] Comment on above: Result Comment: PERF ORMED BY: [place] [address] PATHOLOGIST WIRELESS SALES MANAGER GUIDO ELIZALDE M.D. Performed By: #### C BC, PT, PTT, CMP #### [facility] [address] Estimated GFR ( Froylan > 60 [facility] Comment on above: Result Comment: GFR estimated reference range: According to KDOQI guidelines, <60 ml/min/1.73m2 is sufficient to diagnose a patient with chronic kidney disease. Performed By: #### C BC, PT, PTT, CMP #### [facility] [address] Estimated GFR (Non- Am 59 [facility] Comment on above: Performed By: #### C BC, PT, PTT, CMP #### [address] Globulin (S) [Mass/Vol] 3.2 g/dL Normal [facility] Comment on above: Performed By: #### C BC, PT, PTT, CMP #### [facility] [address] Glucose [Mass/Vol] 114 mg/dL High 70-100 [facility] Comment on above: Result Comment: [place] Glucose Reference Range is dependent on time and content of last meal. Glucose of more than 200 mg/dL in a nonstressed, ambulatory subject supports the diagnosis of Diabetes Mellitus. ADA recommended reference range Performed By: #### C BC, PT, PTT, CMP #### [facility] [address] Potassium [Moles/Vol] 4.4 mmol/L Normal 3.5-5.1 [facility] Comment on above: Performed By: #### C BC, PT, PTT, CMP #### [facility] [address] Protein [Mass/Vol] 6.8 g/dL Normal 6.1-7.9 [facility] Comment on above: Performed By: #### C BC, PT, PTT, CMP #### [facility] [address] [place] [id number] [facility] Sodium [Moles/Vol] 141 mmol/L Normal 136-146 [facility] Comment on above: Performed By: #### C BC, PT, PTT, CMP #### [facility] [address] [place] [phone] [facility] Urea nitrogen [Mass/Vol] 24 mg/dL High 9-23 [facility] Comment on above: Performed By: #### C BC, PT, PTT, CMP #### [facility] [address] Creatinine and Glomerular fi ltration rate.predicted panel (S/P/Bld)Ordered By: Howard Rivera on 03-23-2022 Creatinine [Mass/Vol] 0.92 mg/dL 0.44-1.03 [facility] ECG 12 lead ECGon 03-23-2022 ECG 12 lead ECG [facility] [place] [address] [place] [address] Electrocardiograph Report Signed Patient: Saeed Sarabia MR#: [id number] : 1940 Acct:[id number] Age/Sex: 81 / F ADM Date: 03/24/22 Loc: Room: 0W7436-5 Type: DIS INOo Attending Dr: Rupert Anthony [...] longer present Confirmed by Howard Rivera DO ([id number]) on 03/24/2022 2:06:42 AM Referred By: Electronically Signed By:Howard Rivera DO Transcribed By: MUS Signed By Howard Rivera DO 03/24 0206 Normal [facility] Eosinophils Auto (Bld) [#/Vo l]Ordered By: Howard Rivera on 03-23-2022 Eosinophils (Bld) [#/Vol] 0.2 10*3/uL 0.0-0.45 [facility] Eosinophils/100 WBC Auto (Bl d)Ordered By: Howard Rivera on 03-23-2022 Eosinophils/100 WBC (Bld) 2.3 % [facility] Erythrocyte distribution wid th Auto (RBC) [Ratio]Ordered By: Howard Rivera on 03-23-2022 Erythrocyte distribution width (RBC) [Ratio] 13.8 % 11.9-15.3 [facility] Estimated glomerular filtrat ion rate (GFR) non- AmericanOrdered By: Howard Rivera on 03-23-2022 GFR/1.73 sq M.predicted among non-blacks MDRD (S/P/Bld) [Vol rate/Area] 59 mL/Min [facility] Globulin Calc (S) [Mass/Vol] Ordered By: Howard Rivera on 03-23-2022 Globulin (S) [Mass/Vol] 3.2 g/dL [facility] Hematocrit Auto (Bld) [Volum e fraction]Ordered By: Howard Rivera on 03-23-2022 Hematocrit (Bld) [Volume fraction] 43.4 % 34.0-46.4 [facility] Ketones Auto test strip (U) [Mass/Vol]Ordered By: Howard Rivera on 03-23-2022 Ketones (U) [Mass/Vol] Trace [facility] - CoagulationOrde red By: Howard Rivera on 03-23-2022 PT Coag (PPP) [Time] 15.7 s 9.0-12.9 [facility] Laboratory - Hematology and Cell countsOrdered By: Howard Rivera on 03-23-2022 Nucleated RBC/100 WBC (Bld) [Ratio] 0.0 % 0-0.5 [facility] Lymphocytes Auto (Bld) [#/Vo l]Ordered By: Howard Rivera on 03-23-2022 Lymphocytes (Bld) [#/Vol] 3.3 10*3/uL 1.00-4.8 [facility] Lymphocytes/100 WBC Auto (Bl d)Ordered By: Howard Rivera on 03-23-2022 Lymphocytes/100 WBC (Bld) 38.7 % [facility] MCH Auto (RBC) [Entitic mass ]Ordered By: Howard Rivera on 03-23-2022 MCH (RBC) [Entitic mass] 29.9 pg 24.7-34.3 [facility] MCHC Auto (RBC) [Mass/Vol]Or dered By: Howard Rivera on 03-23-2022 MCHC (RBC) [Mass/Vol] 32.9 g/dL 32.0-35.0 [facility] MCV Auto (RBC) [Entitic vol] Ordered By: Howard Rivera on 03-23-2022 MCV (RBC) [Entitic vol] 91.0 fL 80-100 [facility] Monocytes Auto (Bld) [#/Vol] Ordered By: Howard Rivera on 03-23-2022 Monocytes (Bld) [#/Vol] 0.8 10*3/uL 0.0-0.8 [facility] Monocytes/100 WBC Auto (Bld) Ordered By: Howard Rivera on 03-23-2022 Monocytes/100 WBC (Bld) 9.2 % [facility] Neutrophils Auto (Bld) [#/Vo l]Ordered By: Howard Rivera on 03-23-2022 Neutrophils (Bld) [#/Vol] 4.2 10*3/uL 1.8-7.7 [facility] Neutrophils/100 WBC Auto (Bl d)Ordered By: Howard Rivera on 03-23-2022 Neutrophils/100 WBC (Bld) 49.2 % [facility] Nitrite Test strip Ql (U)Ord ered By: Howard Rivera on 03-23-2022 Nitrite Ql (U) Negative Negative [facility] No Panel InformationOrdered By: Howard Rivera on 03-23-2022 Estimated GFR () > 60 mL/Min [facility] Comment on above: GFR estimated refere nce range: According to KDOQI guidelines, <60 ml/min/1.73m2 is sufficient to diagnose a patient with chronic kidney disease. Pharmacy Creatinine Clearance (Chem 46.80 [facility] SARS Antigen (LFIA) [facility] SARS Antigen (LFIA) [facility] Partial Thromboplastin Timeo n 03-23-2022 aPTT Coag (Bld) [Time] 32.2 s Normal 25.1-36.5 Fi [facility] Comment on above: Result Comment: PERF ORMED BY: [place] [address] PATHOLOGIST [employer]NA[employer] GUIDO ELIZALDE M.D. Performed By: #### C BC, PT, PTT, CMP #### [address] Platelet mean volume Auto (B ld) [Entitic vol]Ordered By: Howard Rivera on 03-23-2022 Platelet mean volume (Bld) [Entitic vol] 7.8 fL 6.3-10.7 [facility] Platelet poor plasma interna tional normalized ratio (INR) by coagulation assay (relatOrdered By: Howard Rivera on 03-23-2022 INR Coag (PPP) [Relative time] 1.4 {INR} [facility] Comment on above: INR Therapeutic Rang e [...] 03-23-2022 Platelets (Bld) [#/Vol] 295 10*3/uL 150-450 [facility] Protein Auto test strip (U) [Mass/Vol]Ordered By: Howard Rivera on 03-23-2022 Protein (U) [Mass/Vol] Negative Negative [facility] Protein [Mass/volume] in Ser um or PlasmaOrdered By: Howard Rivera on 03-23-2022 Protein [Mass/Vol] 6.8 g/dL 6.1-7.9 [facility] Prothrombin Time INRon 03-23 INR Coag (PPP) [Relative time] 1.4 {INR} Normal [facility] Comment on above: Result Comment: INR Therapeutic [...] #### C BC, PT, PTT, CMP #### [facility] [address] PT Coag (PPP) [Time] 15.7 s High 9.0-12.9 [facility] Comment on above: Performed By: #### C BC, PT, PTT, CMP #### [facility] [address] RBC Auto (Bld) [#/Vol]Ordere d By: Howard Rivera on 03-23-2022 RBC (Bld) [#/Vol] 4.77 10*6/uL 3.60-5.00 [facility] Serum or plasma alanine [place] otransferase measurement without P-5'-P (enzymatic activiOrdered By: Howard Rivera on 03-23-2022 ALT No additional P-5'-P [Catalytic activity/Vol] 18 U/L 10-60 [facility] Serum or plasma albumin/glob ulin mass ratioOrdered By: Howard Rivera on 03-23-2022 Albumin/Globulin [Mass ratio] 1.1 {ratio} [facility] Serum or plasma alkaline dolly sphatase measurement (enzymatic activity/volume)Ordered By: Howard Rivera on 03-23-2022 ALP [Catalytic activity/Vol] 48 U/L 32-92 [facility] Serum or plasma aspartate am inotransferase measurement (enzymatic activity/volume)Ordered By: Howard Rivera on 03-23-2022 AST [Catalytic activity/Vol] 22 U/L 10-42 [facility] Serum or plasma calcium nakul urement (mass/volume)Ordered By: Howard Rivera on 03-23-2022 Calcium [Mass/Vol] 9.6 mg/dL 8.2-10.2 [facility] Serum or plasma chloride elizabeth surement (moles/volume)Ordered By: Howard Rivera on 03-23-2022 Chloride [Moles/Vol] 103 mmol/L 95-114 [facility] Serum or plasma glucose nakul urement (mass/volume)Ordered By: Howard Rivera on 03-23-2022 Glucose [Mass/Vol] 114 mg/dL 70-100 [facility] Comment on above: ADA recommended refe rence range Random Glucose Reference Range is dependent on time and content of last meal. Glucose of more than 200 mg/dL in a nonstressed, ambulatory subject supports the diagnosis of Diabetes Mellitus. Serum or plasma potassium me asurement (moles/volume)Ordered By: Howard Rivera on 03-23-2022 Potassium [Moles/Vol] 4.4 mmol/L 3.5-5.1 [facility] Serum or plasma sodium measu rement (moles/volume)Ordered By: Howard Rivera on 03-23-2022 Sodium [Moles/Vol] 141 mmol/L 136-146 [facility] Serum or plasma total biliru bin measurement (mass/volume)Ordered By: Howard Rivera on 03-23-2022 Bilirubin [Mass/Vol] 0.6 mg/dL 0.3-1.2 [facility] Serum or plasma total carbon dioxide measurement (moles/volume)Ordered By: Howard Rivera on 03-23-2022 CO2 [Moles/Vol] 27.4 mmol/L 22.0-30.0 [facility] Serum or plasma urea nitroge n measurement (mass/volume)Ordered By: Howard Rivera on 03-23-2022 Urea nitrogen [Mass/Vol] 24 mg/dL 07-01 [facility] Cecily Ag Negativeon 03-23-20 22 Cecily Ag Negative Negative Normal Negative [facility] Comment on above: Result Comment: This is a duplicate Cecily SARS Antigen (DRAKE) result to be used for statistical tracking purpose only. PERFORMED BY: [place] [address] PATHOLOGIST [employer] MANAGER GUIDO EILZALDE M.D. Performed By: #### G INOCENTE #### Point of Care testing , Specific gravity Auto test s trip (U) [Rel density]Ordered By: Howard Rivera on 03-23-2022 Specific gravity (U) [Rel density] 1.017 1.001-1.030 [facility] Troponin I High Sensitivityo n 03-23-2022 Troponin I High Sensitivity 6 pg/mL Normal [facility] Comment on above: Result Comment: PERF ORMED BY: [place] [address] PATHOLOGIST [employer] MANAGER GUIDO ELIZALDE M.D. Performed By: #### C BC, PT, PTT, CMP #### [facility] [address] [place] [address] Troponin I.cardiac [Mass/vol ume] in Serum or Plasma by High sensitivity methodOrdered By: Howard Rivera on 03-23-2022 Troponin I.cardiac High sensitivity method [Mass/Vol] 6 pg/mL 0 [facility] Urinalysison 03-23-2022 Appearance (U) Clear Normal Clear [facility] Comment on above: Order Comment: Name Collection Type:: Straight Catheter Performed By: #### U A #### [facility] [address] [place] [address] Bilirubin,Urine Negative Normal Negative [facility] Comment on above: Order Comment: Name Collection Type:: Straight Catheter Performed By: #### U A #### [address] Color (U) Yellow Normal Yellow [facility] Comment on above: Order Comment: Name Collection Type:: Straight Catheter Performed By: #### U A #### [address] Glucose Ql (U) Normal Normal Normal [facility] Comment on above: Order Comment: Name Collection Type:: Straight Catheter Performed By: #### U A #### [address] Ketones Ql (U) Trace High Negative [facility] Comment on above: Order Comment: Name Collection Type:: Straight Catheter Performed By: #### U A #### [address] Leukocyte esterase Test strip Ql (U) Negative Normal Negative [facility] Comment on above: Order Comment: Name Collection Type:: Straight Catheter Performed By: #### U A #### [address] Nitrite,Urine Negative Normal Negative [facility] Comment on above: Order Comment: Name Collection Type:: Straight Catheter Performed By: #### U A #### [address] Occult Blood,Urine Negative Normal Negative [facility] Comment on above: Order Comment: Name Collection Type:: Straight Catheter Result Comment: PERF ORMED BY: [address] [place] [address] PATHOLOGIST [employer] MANAGER GUIDO ELIZALDE M.D. Performed By: #### U A #### [place] [address] [place] pH (U) 7.5 [pH] Normal 5.0-9.0 [facility] Comment on above: Order Comment: Name Collection Type:: Straight Catheter Performed By: #### U A #### [address] Protein,Urine Negative Normal Negative [facility] Comment on above: Order Comment: Name Collection Type:: Straight Catheter Performed By: #### U A #### [facility] [address] Specificy [place],Urine 1.017 Normal 1.001-1.030 [facility] Comment on above: Order Comment: Name Collection Type:: Straight Catheter Performed By: #### U A #### [facility] [address] [place] [address] [place] Urobilinogen,Urine Normal Normal Normal [facility] Comment on above: Order Comment: Name Collection Type:: Straight Catheter Performed By: #### U A #### [facility] [address] Urine clarity by refractomet ry automatedOrdered By: Howard Rivera on 03-23-2022 Clarity Refractometry automated (U) Clear Clear [facility] Urine glucose measurement by automated test strip (mass/volume)Ordered By: Howard Rivera on 03-23-2022 Glucose Auto test strip (U) [Mass/Vol] Normal mg/dL Normal [facility] Urine hemoglobin detection b y automated test stripOrdered By: Howard Rivera on 03-23-2022 Hemoglobin Auto test strip Ql (U) Negative Negative [facility] Urine leukocyte esterase det ection by automated test stripOrdered By: Howard Rivera on 03-23-2022 Leukocyte esterase Auto test strip Ql (U) Negative Negative [facility] Urobilinogen Auto test strip (U) [Mass/Vol]Ordered By: Howard Rivera on 03-23-2022 Urobilinogen (U) [Mass/Vol] Normal mg/dL Normal [facility] XR chest 1V portableon 03-23 XR chest 1V portable [facility] [place] [address] [place] [address] XRay Report Signed Patient: Saeed Sarabia MR#: [id number] : 1940 Acct:[id number] Age/Sex: 81 / F ADM Date: 03/23/22 Loc: ER Room: Type: [facility] ER Attending Dr: Copies to: Howard Rivera DO Ordering Provider: Hwoard Rivera DO Date of Service: 03/23/22 XR/XR [...] Donny Wolf M.D.03/23/2022 8:03 PM Dictation Location: [place] [address] Transcribed By: [facility] 03/23/222002 Dictated By: Donny Wolf II, MD 03/23/222001 Signed By: 03/23/222002 Normal [facility] XR knee RT 4V*on 03-23-2022 XR knee RT 4V* [place] [address] XRay Report Signed Patient: Saeed Sarabia MR#: [id number] : 1940 Acct:[id number] Age/Sex: 81 / F ADM Date: 03/23/22 Loc: ER Room: Type: [facility] ER Attending Dr: Copies to: Howard Rivera [...] Donny Wolf M.D.03/23/2022 8:02 PM Dictation Location: [place] [address] Transcribed By: [facility] 03/23/222001 Dictated By: Donny Wolf II, MD 03/23/222000 Signed By: 03/23/222001 Normal [facility] pH Auto test strip (U)Ordere d By: Howard Rivera on 03-23-2022 pH (U) 7.5 [pH] 5.0-9.0 [facility] Basic Metabolic Panelon Calcium [Mass/Vol] 9.6 mg/dL Normal 8.2-10.2 [facility] Comment on above: Result Comment: PERF ORMED BY: [place] [address] PATHOLOGIST [employer] MANAGER GUIDO ELIZALDE M.D. Performed By: #### C BC, PT, PTT, CMP #### [facility] [address] [place] [address] [place] Chloride [Moles/Vol] 99 mmol/L Normal 95-114 [facility] Comment on above: Performed By: #### C BC, PT, PTT, CMP #### [facility] [address] CO2 [Moles/Vol] 26.1 mmol/L Normal 22.0-30.0 [facility] Comment on above: Performed By: #### C BC, PT, PTT, CMP #### [facility] [address] [place] [address] [place] Creatinine [Mass/Vol] 1.04 mg/dL High 0.44-1.03 [facility] Comment on above: Performed By: #### C BC, PT, PTT, CMP #### [facility] [address] [place] [address] [place] Estimated GFR ( Froylan > 60 Normal [facility] Comment on above: Result Comment: GFR estimated reference range: According to KDOQI guidelines, <60 ml/min/1.73m2 is sufficient to diagnose a patient with chronic kidney disease. Performed By: #### C BC, PT, PTT, CMP #### [facility] [address] Estimated GFR (Non- Am 51 Normal [facility] Comment on above: Performed By: #### C BC, PT, PTT, CMP #### [facility] [address] Glucose [Mass/Vol] 134 mg/dL High 70-100 [facility] Comment on above: Result Comment: [place] Glucose Reference Range is dependent on time and content of last meal. Glucose of more than 200 mg/dL in a nonstressed, ambulatory subject supports the diagnosis of Diabetes Mellitus. ADA recommended reference range Performed By: #### C BC, PT, PTT, CMP #### [address] Potassium [Moles/Vol] 4.8 mmol/L Normal 3.5-5.1 [facility] Comment on above: Performed By: #### C BC, PT, PTT, CMP #### [address] Sodium [Moles/Vol] 139 mmol/L Normal 136-146 [facility] Comment on above: Performed By: #### C BC, PT, PTT, CMP #### [address] Urea nitrogen [Mass/Vol] 21 mg/dL Normal 9-23 [facility] Comment on above: Performed By: #### C BC, PT, PTT, CMP #### [facility] [address] [place] [address] [place] Basophils Auto (Bld) [#/Vol] Ordered By: Glenroy Vera on 03-09-2022 Basophils (Bld) [#/Vol] 0.1 10*3/uL 0.0-0.2 [facility] Basophils/100 WBC Auto (Bld) Ordered By: Glenroy Vera on 03-09-2022 Basophils/100 WBC (Bld) 0.8 % [facility] Blood hemoglobin measurement (mass/volume)Ordered By: Glenroy Vera on 03-09-2022 Hemoglobin (Bld) [Mass/Vol] 13.7 g/dL 11.8-15.4 [facility] Blood leukocytes automated c ount (number/volume)Ordered By: Glenroy Vera on 03-09-2022 WBC (Bld) [#/Vol] 6.4 10*3/uL 4.5-11.0 [facility] Complete Blood Count Auto Di ffon 03-09-2022 Basophils (Bld) [#/Vol] 0.1 10*3/uL Normal 0.0-0.2 [facility] Comment on above: Result Comment: PERF ORMED BY: [place] [address] PATHOLOGIST [employer] MANAGER GUIDO ELIZALDE M.D. Performed By: #### C BC, PT, PTT, CMP #### [address] Basophils/100 WBC (Bld) 0.8 % Normal . [facility] Comment on above: Performed By: #### C BC, PT, PTT, CMP #### [address] Eosinophils (Bld) [#/Vol] 0.1 10*3/uL Normal 0.0-0.45 [facility] Comment on above: Performed By: #### C BC, PT, PTT, CMP #### [address] Eosinophils/100 WBC (Bld) 1.9 % Normal . [facility] Comment on above: Performed By: #### C BC, PT, PTT, CMP #### [address] Erythrocyte distribution width (RBC) [Ratio] 13.8 % Normal 11.9-15.3 [facility] Comment on above: Performed By: #### C BC, PT, PTT, CMP #### [address] Hematocrit (Bld) [Volume fraction] 41.8 % Normal 34.0-46.4 [facility] Comment on above: Performed By: #### C BC, PT, PTT, CMP #### [address] Hemoglobin (Bld) [Mass/Vol] 13.7 g/dL Normal 11.8-15.4 [facility] Comment on above: Performed By: #### C BC, PT, PTT, CMP #### [address] Lymphocytes (Bld) [#/Vol] 2.1 10*3/uL Normal 1.00-4.8 [facility] Comment on above: Performed By: #### C BC, PT, PTT, CMP #### [address] Lymphocytes/100 WBC (Bld) 32.8 % Normal . [facility] Comment on above: Performed By: #### C BC, PT, PTT, CMP #### [address] MCH (RBC) [Entitic mass] 30.2 pg Normal 24.7-34.3 [facility] Comment on above: Performed By: #### C BC, PT, PTT, CMP #### [address] MCV (RBC) [Entitic vol] 92.0 fL Normal 80-100 [facility] Comment on above: Performed By: #### C BC, PT, PTT, CMP #### [address] Mean Corpuscular HGB Conc 32.8 g/dL Normal 32.0-35.0 [facility] Comment on above: Performed By: #### C BC, PT, PTT, CMP #### [address] Monocytes (Bld) [#/Vol] 0.5 10*3/uL Normal 0.0-0.8 [facility] Comment on above: Performed By: #### C BC, PT, PTT, CMP #### [facility] [address] [place] [address] [place] Monocytes/100 WBC (Bld) 7.6 % Normal . [facility] Comment on above: Performed By: #### C BC, PT, PTT, CMP #### [facility] [address] Neutrophils (Bld) [#/Vol] 3.7 10*3/uL Normal 1.8-7.7 [facility] Comment on above: Performed By: #### C BC, PT, PTT, CMP #### [facility] [address] [place] [address] [place] Neutrophils/100 WBC (Bld) 56.9 % Normal . [facility] Comment on above: Performed By: #### C BC, PT, PTT, CMP #### [facility] [address] [place] [address] [place] Nucleated RBC/100 WBC (Bld) [Ratio] 0.1 % Normal 0-0.5 [facility] Comment on above: Performed By: #### C BC, PT, PTT, CMP #### [facility] [address] [place] [address] [place] Platelet mean volume (Bld) [Entitic vol] 9.0 fL Normal 6.3-10.7 [facility] Comment on above: Performed By: #### C BC, PT, PTT, CMP #### [facility] [address] [place] [address] [place] Platelets (Bld) [#/Vol] 277 10*3/uL Normal 150-450 [facility] Comment on above: Performed By: #### C BC, PT, PTT, CMP #### [facility] [address] [place] [address] [place] RBC (Bld) [#/Vol] 4.55 10*6/uL Normal 3.60-5.00 [facility] Comment on above: Performed By: #### C BC, PT, PTT, CMP #### [facility] [address] [place] [address] [place] WBC (Bld) [#/Vol] 6.4 10*3/uL Normal 4.5-11.0 [facility] Comment on above: Performed By: #### C BC, PT, PTT, CMP #### [place] [address] [place] Creatinine and Glomerular fi ltration rate.predicted panel (S/P/Bld)Ordered By: Glenroy Vera on 03-09-2022 Creatinine [Mass/Vol] 1.04 mg/dL 0.44-1.03 [facility] ECG 12 lead ECGon 03-09-2022 ECG 12 lead ECG [facility] [place] [address] [place] [address] Electrocardiograph Report Signed Patient: Saeed Sarabia MR#: [id number] : 1940 Acct:[id number] Age/Sex: 81 / F ADM Date: 03/09/22 Loc: Room: Type: [facility] Attending Dr: Glenroy Vera MD Ordering Provider: [...] Signed By Piedad Lockhart DO 03/12 Normal [facility] Eosinophils Auto (Bld) [#/Vo l]Ordered By: Glenroy Vera on 03-09-2022 Eosinophils (Bld) [#/Vol] 0.1 10*3/uL 0.0-0.45 [facility] Eosinophils/100 WBC Auto (Bl d)Ordered By: Glenroy Vera on 03-09-2022 Eosinophils/100 WBC (Bld) 1.9 % [facility] Erythrocyte distribution wid th Auto (RBC) [Ratio]Ordered By: Glenroy Vera on 03-09-2022 Erythrocyte distribution width (RBC) [Ratio] 13.8 % 11.9-15.3 [facility] Estimated glomerular filtrat ion rate (GFR) non- AmericanOrdered By: Glenroy Vera on 03-09-2022 GFR/1.73 sq M.predicted among non-blacks MDRD (S/P/Bld) [Vol rate/Area] 51 mL/Min [facility] Hematocrit Auto (Bld) [Volum e fraction]Ordered By: Glenroy Vera on 03-09-2022 Hematocrit (Bld) [Volume fraction] 41.8 % 34.0-46.4 [facility] Laboratory - Hematology and Cell countsOrdered By: Glenroy Vera on 03-09-2022 Nucleated RBC/100 WBC (Bld) [Ratio] 0.1 % 0-0.5 [facility] Lymphocytes Auto (Bld) [#/Vo l]Ordered By: Glenroy Vera on 03-09-2022 Lymphocytes (Bld) [#/Vol] 2.1 10*3/uL 1.00-4.8 [facility] Lymphocytes/100 WBC Auto (Bl d)Ordered By: Glenroy Vera on 03-09-2022 Lymphocytes/100 WBC (Bld) 32.8 % [facility] MCH Auto (RBC) [Entitic mass ]Ordered By: Glenroy Vera on 03-09-2022 MCH (RBC) [Entitic mass] 30.2 pg 24.7-34.3 [facility] MCHC Auto (RBC) [Mass/Vol]Or dered By: Glenroy Vera on 03-09-2022 MCHC (RBC) [Mass/Vol] 32.8 g/dL 32.0-35.0 [facility] MCV Auto (RBC) [Entitic vol] Ordered By: Glenroy Vera on 03-09-2022 MCV (RBC) [Entitic vol] 92.0 fL 80-100 [facility] Monocytes Auto (Bld) [#/Vol] Ordered By: Glenroy Vera on 03-09-2022 Monocytes (Bld) [#/Vol] 0.5 10*3/uL 0.0-0.8 [facility] Monocytes/100 WBC Auto (Bld) Ordered By: Glenroy Vera on 03-09-2022 Monocytes/100 WBC (Bld) 7.6 % [facility] Neutrophils Auto (Bld) [#/Vo l]Ordered By: Glenroy Vera on 03-09-2022 Neutrophils (Bld) [#/Vol] 3.7 10*3/uL 1.8-7.7 [facility] Neutrophils/100 WBC Auto (Bl d)Ordered By: Glenroy Vera on 03-09-2022 Neutrophils/100 WBC (Bld) 56.9 % [facility] No Panel InformationOrdered By: Glenroy Vera on 03-09-2022 Estimated GFR () > 60 mL/Min [facility] Comment on above: GFR estimated refere nce range: According to KDOQI guidelines, <60 ml/min/1.73m2 is sufficient to diagnose a patient with chronic kidney disease. Pharmacy Creatinine Clearance (Chem N/A [facility] Platelet mean volume Auto (B ld) [Entitic vol]Ordered By: Glenroy Vera on 03-09-2022 Platelet mean volume (Bld) [Entitic vol] 9.0 fL 6.3-10.7 [facility] Platelets Auto (Bld) [#/Vol] Ordered By: Glenory Vera on 03-09-2022 Platelets (Bld) [#/Vol] 277 10*3/uL 150-450 [facility] RBC Auto (Bld) [#/Vol]Ordere d By: Glenroy Vera on 03-09-2022 RBC (Bld) [#/Vol] 4.55 10*6/uL 3.60-5.00 [facility] Serum or plasma calcium nakul urement (mass/volume)Ordered By: Glenroy Vera on 03-09-2022 Calcium [Mass/Vol] 9.6 mg/dL 8.2-10.2 [facility] Serum or plasma chloride elizabeth surement (moles/volume)Ordered By: Glenroy Vera on 03-09-2022 Chloride [Moles/Vol] 99 mmol/L 95-114 [facility] Serum or plasma glucose nakul urement (mass/volume)Ordered By: Glenroy Vera on 03-09-2022 Glucose [Mass/Vol] 134 mg/dL 70-100 [facility] Comment on above: ADA recommended refe rence range Random Glucose Reference Range is dependent on time and content of last meal. Glucose of more than 200 mg/dL in a nonstressed, ambulatory subject supports the diagnosis of Diabetes Mellitus. Serum or plasma potassium me asurement (moles/volume)Ordered By: Glenroy Vera on 03-09-2022 Potassium [Moles/Vol] 4.8 mmol/L 3.5-5.1 [facility] Serum or plasma sodium measu rement (moles/volume)Ordered By: Glenroy Vera on 03-09-2022 Sodium [Moles/Vol] 139 mmol/L 136-146 [facility] Serum or plasma total carbon dioxide measurement (moles/volume)Ordered By: Glenroy Vera on 03-09-2022 CO2 [Moles/Vol] 26.1 mmol/L 22.0-30.0 [facility] Serum or plasma urea nitroge n measurement (mass/volume)Ordered By: Glenroy Vera on 03-09-2022 Urea nitrogen [Mass/Vol] 21 mg/dL 9-23 [facility] MRI LSPINE WO CONon 02-19-20 MRI [facility] WO CON EXAMINATION: MRI [facility] WO CON HISTORY: Lumbar spondylosis with myelopathy [...] by: SHEILA INIGUEZ Date: 2022-02-18 11:32 Normal [facility] US ARTERY LEG BILon 02-12-20 22 [...] by: SHEILA INIGUEZ Date: 2022-02-11 16:21 Normal [facility] XR LSPINE 2_3 VIEWSon 05-06- 2022 XR LSPINE 2_3 VIEWS EXAMINATION: XR LSPINE [...] by: SHEILA INIGUEZ Date: 2022-02-11 17:09 Normal [facility] VITAMIN B12on 02-10-2022 Cobalamin (Vitamin B12) [Mass/Vol] 359 pg/mL Normal 232-1245 [facility] Comment on above: Performed By: #### V B12LC #### [facility] [address] [place], [place] [address] Dr. Adilene Koo CBC AUTO DIFFon 02-09-2022 BASO # 0.0 103/ul Normal 0.0-0.1 [facility] Comment on above: Performed By: #### C BC ####[facility] [address] [place] [address]DrKen Koo Basophils/100 WBC (Bld) 0.2 % Normal 0.2-2.0 [facility] Comment on above: Performed By: #### C BC ####[facility] [address] [place] [id number] Koo EO # 0.1 103/ul Normal 0.0-0.7 [facility] Comment on above: Performed By: #### C BC ####[facility] [address] [place], [place] [address]UeKen Koo Eosinophils/100 WBC (Bld) 1.5 % Normal 0.9-7.0 [facility] Comment on above: Performed By: #### C BC ####[facility] [address] [place] [id number] Koo Erythrocyte distribution width (RBC) [Ratio] 13.2 % Normal 11.0-15.0 [facility] Comment on above: Performed By: #### C BC ####[facility] [address] [place] [address]Dr. Adilene Koo Hematocrit (Bld) [Volume fraction] 46.3 % Normal 36.0-48.0 [facility] Comment on above: Performed By: #### C BC ####[facility] [address] [place] [address]Dr. Adilene Koo Hemoglobin (Bld) [Mass/Vol] 14.1 g/dL Normal 12.0-16.0 [facility] Comment on above: Performed By: #### C BC ####[facility] [address] [place], [place] [address]Dr. Josephinerossy Koo IG # 0.02 10e3/ul Normal 0.00-0.03 [facility] Comment on above: Performed By: #### C BC ####[facility] [address] [place], [place] [address]Dr. Josephinerossy Koo IG % 0.2 % Normal 0.0-0.5 [facility] Comment on above: Performed By: #### C BC ####[facility] [address] [place], [place] [address]Dr. Josephinerossy Koo LYMPH # 2.4 103/ul Normal 1.2-3.8 [facility] Comment on above: Performed By: #### C BC ####[facility] [address] [place], [place] [address]Dr. Adilene Koo Lymphocytes/100 WBC (Bld) 29.9 % Normal 20.5-60.0 [facility] Comment on above: Performed By: #### C BC ####[facility] [address] [place], [place] [address]Dr. Adilene Koo MANUAL DIFF REQ NO Normal [facility] Comment on above: Performed By: #### C BC ####[facility] [address]vw[address] [place], [place] [address]Dr. Adilene Koo MCH (RBC) [Entitic mass] 29.2 pg Normal 26.7-34.0 [facility] Comment on above: Performed By: #### C BC ####[facility] [address] [place] [id number]. Adilene Hayes MCHC (RBC) [Mass/Vol] 30.5 g/dL Normal 29.9-35.2 [facility] Comment on above: Performed By: #### C BC ####[facility] [address] [place] [id number]. Adilene Koo MCV (RBC) [Entitic vol] 95.9 fL Normal 81.0-99.0 [facility] Comment on above: Performed By: #### C BC ####[facility] [address] [place], [place] [address]Dr. Adilene Koo MONO # 0.6 103/ul Normal 0.3-0.8 [facility] Comment on above: Performed By: #### C BC ####[facility] [address] [place], [place] [address]Dr. Adilene Koo Monocytes/100 WBC (Bld) 8.0 % Normal 1.7-12.0 [facility] Comment on above: Performed By: #### C BC ####[facility] [address] [place], [place] [address]Dr. Adilene Koo NEUT # 4.8 103/ul Normal 1.4-6.5 [facility] Comment on above: Performed By: #### C BC ####[facility] [address] [place], [place] [address]Dr. Adilene Koo Neutrophils/100 WBC (Bld) 60.2 % Normal 43.0-75.0 [facility] Comment on above: Performed By: #### C BC ####[facility] [address] [place], [place] [address]DrKen Koo Platelet mean volume (Bld) [Entitic vol] 10.9 fL Normal 9.5-13.5 [facility] Comment on above: Performed By: #### C BC ####[facility] [address] [place], [place] [address]Dr. Adilene Koo PLT 276 103/ul Normal 150-450 [facility] Comment on above: Performed By: #### C BC ####[facility] [address] [place] [address]Dr. Adilene Koo RBC 4.83 106/ul Normal 4.20-5.40 [facility] Comment on above: Performed By: #### C BC ####[facility] [address] [place] [id number] Koo WBC 8.0 103/ul Normal 4.0-11.0 [facility] Comment on above: Performed By: #### C BC ####[facility] [address] [place] [address]Dr. Adilene Koo FREE T3on 02-09-2022 FREE T3 2.41 pg/mlL Normal 2.18-3.98 [facility] Comment on above: Performed By: #### B MP, FT3, TSH #### [facility] [address] [place] [address] [address] Adilene Koo FREE T4on 02-09-2022 Free T4 [Mass/Vol] 1.39 ng/dL Normal 0.76-1.46 [facility] Comment on above: Performed By: #### F T4 ####[facility] [address] [place] [address]Dr. Adilene Koo GLYCOHEMOGLOBIN A1Con 2021 ADA RECOMMENDATION SEE BELOW Normal [facility] Comment on above: Result Comment: ADA RECOMMENDED LIMIT 4.0 - 6.0 ADA THERAPEUTIC TARGET < 7.0 ACTION SUGGESTED > 7.0 Performed By: #### A 1C ####[facility] [address] [place] [address]DrKen Koo Glucose [Mass/Vol] 137 mg/dL Normal [facility] Comment on above: Performed By: #### A 1C ####[facility] [address] [place] [address]DrKen Koo HbA1c (Bld) [Mass fraction] 6.4 % Critically high 4.5-6.2 [facility] Comment on above: Performed By: #### A 1C ####[facility] [address] [place] [address]Dr. Adilene Koo PROF CHEM 8 (BAS METB)on Anion gap [Moles/Vol] 9.1 mmol/L Normal [facility] Comment on above: Performed By: #### B MP, FT3, TSH #### [facility] [address] [place] [address] [address] Adilene Koo Calcium [Mass/Vol] 9.0 mg/dL Normal 8.5-10.1 [facility] Comment on above: Performed By: #### B MP, FT3, TSH #### [facility] [address] [place] [address] [address] Adilene Koo Chloride [Moles/Vol] 105 mmol/L Normal 98-107 [facility] Comment on above: Performed By: #### B MP, FT3, TSH #### [facility] [address] [place] [address] [address] Adilene Koo CO2 [Moles/Vol] 30.5 mmol/L Normal 21.0-32.0 [facility] Comment on above: Performed By: #### B MP, FT3, TSH #### [facility] [address] [place] [address] [address] Adilene Koo Creatinine [Mass/Vol] 0.93 mg/dL Normal 0.55-1.02 [facility] Comment on above: Performed By: #### B MP, FT3, TSH #### [facility] [address] [place] [address] [address] Adilene Koo EGFR-AF IRISH >60 Normal >=60 [facility] Comment on above: Performed By: #### B MP, FT3, TSH #### [facility] [address] [place] [address] [address] Adilene Koo EGFR-NON AF IRISH 58 mL/min/1.73m2 Critically low >=60 [facility] Comment on above: Performed By: #### B MP, FT3, TSH #### [facility] [address] [place] [address] [address] Adilene Koo Glucose [Mass/Vol] 105 mg/dL Normal 74-106 [facility] Comment on above: Performed By: #### B MP, FT3, TSH #### [facility] [address] [place] [address] Dr. Adilene Koo Potassium [Moles/Vol] 4.6 mmol/L Normal 3.5-5.1 [facility] Comment on above: Performed By: #### B MP, FT3, TSH #### [facility] [address] [place] [address] Dr. Adilene Koo Sodium [Moles/Vol] 140 mmol/L Normal 136-145 [facility] Comment on above: Performed By: #### B MP, FT3, TSH #### [facility] [address] [place] [address] Dr. Adilene Koo Urea nitrogen [Mass/Vol] 20.0 mg/dL Critically high 7.0-18 .0 [facility] Comment on above: Performed By: #### B MP, FT3, TSH #### [facility] [address] [place] [address] Dr. Adilene Koo Urea nitrogen/Creatinine [Mass ratio] 21.5 mg/mg Normal [facility] Comment on above: Performed By: #### B MP, FT3, TSH #### [facility] [address] [place] [address] Dr. Adilene Koo TSHon 02-09-2022 TSH 0.134 uIU/mL Critically low 0.470-4.680 [facility] Comment on above: Performed By: #### B MP, FT3, TSH #### [facility] [address] [place] [address] Dr. Adilene Koo TSH RANGE SEE BELOW Normal [facility] Comment on above: Result Comment: <0.3 4 UIU/ml HYPERTHYROID 0.34-5.60 UIU/ml EUTHYROID >5.60 UIU/ml HYPOTHYROID Performed By: #### B MP, FT3, TSH #### [facility] [address] [place] [address] Dr. Adilene Koo Vital Signs Date Time Vital Sign Value Performing Clinician Facility 08-20-2024 09:19-0500 Body temperature 97.81 [degF] Kirstin Miller [employer] Work Phone: [facility] 08-20-2024 09:19-0500 Body weight 74.57 kg Kirstin Leónz [employer] Work Phone: [facility] 08-20-2024 09:19-0500 Diastolic blood pressure 76 mm[Hg] Kirstinfranky Meansholz [employer] Work Phone: [facility] 08-20-2024 09:19-0500 Heart rate 59 /min Kirstin Claryholz [employer] Work Phone: [facility] 08-20-2024 09:19-0500 Respiratory rate 18 /min Kirstinfranky Meansholz [employer] Work Phone: [facility] 08-20-2024 09:19-0500 SaO2% (BldA) [Mass fraction] 99 % Kirstin Leónz [employer] Work Phone: [facility] 08-20-2024 09:19-0500 Systolic blood pressure 148 mm[Hg] Kirstin Meansholz [employer] Work Phone: [facility] 04-15-2022 06:02-0400 Body temperature 98.2 [degF] MD Glenroy Vera Work Phone: [facility] 04-15-2022 06:02-0400 Diastolic blood pressure 71 mm[Hg] MD Glenroy Vera Work Phone: [facility] 04-15-2022 06:02-0400 Heart rate 77 /min MD Glenroy Vera Work Phone: [facility] 04-15-2022 06:02-0400 Respiratory rate 16 /min MD Glenroy Vera Work Phone: [facility] 04-15-2022 06:02-0400 SaO2% (BldA) [Mass fraction] 96 % MD Glenroy Vera Work Phone: [facility] 04-15-2022 06:02-0400 Systolic blood pressure 131 mm[Hg] MD Glenroy Vera Work Phone: [facility] 04-15-2022 05:59-0400 Body weight 78.3 kg MD Glenroy Vera Work Phone: [facility] 04-14-2022 07:46-0400 Body height 167.64 cm MD Glenroy Vera Work Phone: [facility] 04-07-2022 15:42-0400 Body mass index (BMI) [Ratio] 27.7 kg/m2 MD Glenroy Vera Work Phone: [facility] 03-28-2022 12:00-0400 Body temperature 98 [degF] MD Glenroy Vera Work Phone: [facility] 03-28-2022 12:00-0400 Diastolic blood pressure 74 mm[Hg] MD Glenroy Vera Work Phone: [facility] 03-28-2022 12:00-0400 Heart rate 70 /min MD Glenroy Vera Work Phone: [facility] 03-28-2022 12:00-0400 SaO2% (BldA) [Mass fraction] 96 % MD Glenroy Vera Work Phone: [facility] 03-28-2022 12:00-0400 Systolic blood pressure 125 mm[Hg] MD Glenroy Vera Work Phone: [facility] 03-28-2022 11:50-0400 Body height 157.48 cm MD Glenroy Vera Work Phone: [facility] 03-28-2022 05:56-0400 Body weight 79.1 kg MD Glenroy Vera Work Phone: [facility] 03-28-2022 03:30-0400 Respiratory rate 19 /min MD Glenroy Vera Work Phone: [facility] 03-24-2022 04:00-0400 Body height 157.48 cm MD Glenroy Vera Work Phone: [facility] 03-24-2022 04:00-0400 Body mass index (BMI) [Ratio] 31.6 kg/m2 MD Glenroy Vera Work Phone: [facility] 03-24-2022 04:00-0400 Body temperature 97.8 [degF] MD Glenroy Vera Work Phone: [facility] 03-24-2022 04:00-0400 Body weight 78.4 kg MD Glenroy Vera Work Phone: [facility] 03-24-2022 04:00-0400 Diastolic blood pressure 77 mm[Hg] MD Glenroy Vera Work Phone: [facility] 03-24-2022 04:00-0400 Heart rate 113 /min MD Glenroy Vera Work Phone: [facility] 03-24-2022 04:00-0400 Respiratory rate 21 /min MD Glenroy Vera Work Phone: [facility] 03-24-2022 04:00-0400 SaO2% (BldA) [Mass fraction] 93 % MD Glenroy Vera Work Phone: [facility] 03-24-2022 04:00-0400 Systolic blood pressure 162 mm[Hg] MD Glenroy Vear Work Phone: [facility] 03-23-2022 15:30-0400 Body height 167.64 cm Glenroy Vera Other [facility] [place] [facility] Other 03-23-2022 15:30-0400 Body mass index (BMI) [Ratio] 28.34 kg/m2 Glenroy Vera Other [facility] [place] [facility] Other 03-23-2022 15:30-0400 Body weight 79.65 kg Glenroy Vera Other [facility] Other 03-09-2022 13:28-0400 Body height 158.75 cm MD Glenroy Vera Work Phone: [facility] 03-09-2022 13:28-0400 Body mass index (BMI) [Ratio] 32.1 kg/m2 MD Glenroy Vera Work Phone: [facility] 03-09-2022 13:28-0400 Body temperature 98.7 [degF] MD Glenroy Vera Work Phone: [facility] 03-09-2022 13:28-0400 Body weight 81 kg MD Glenroy Vera Work Phone: [facility] 03-09-2022 13:28-0400 Diastolic blood pressure 68 mm[Hg] MD Glenroy Vera Work Phone: [facility] 03-09-2022 13:28-0400 Heart rate 72 /min MD Glenroy Vera Work Phone: [facility] 03-09-2022 13:28-0400 Respiratory rate 16 /min MD Glenroy Vera Work Phone: [facility] 03-09-2022 13:28-0400 SaO2% (BldA) [Mass fraction] 96 % MD Glenroy Vera Work Phone: [facility] 03-09-2022 13:28-0400 Systolic blood pressure 144 mm[Hg] MD Glenroy Vera Work Phone: [facility] Encounters Encounter Date Encounter Type Care Provider Facility Start: 08-20-2024 End: 08-20-2024 Bamboo flowsheet Kirstin Miller [employer] Work Phone: [facility] Start: 08-20-2024 End: 08-20-2024 Bamboo flowsheet Kirstin Miller [employer] Work Phone: [facility] Start: 08-20-2024 End: 08-20-2024 Clinisync Result Encounter Kirstinfranky Leónz [employer] Work Phone: [facility] External Department Unsolicited Start: 08-20-2024 End: 08-20-2024 Office outpatient visit 25 minutes Kirstin Mauhholz [employer] Work Phone: [facility] Comment on above: Type 2 diabetes fernandez itus without complication, without long- term current use of insulin ([facility]/HCC) (Primary Dx); Other thrombophilia ([facility]/HCC); Type 2 diabetes mellitus with diabetic neuropathy, unspecified ([facility]/HCC); Peripheral vascular disease, unspecified ([facility]/HCC); Unspecified diastolic (congestive) heart failure ([facility]/HCC); Chronic atrial fibrillation (HCC) ([facility]/HCC); Benign essential HTN ([facility]); Coronary arteriosclerosis ([facility]/HCC); Type 2 diabetes mellitus without complications ([facility]/HCC) Start: 08-20-2024 End: 08-20-2024 ambulatory KIRSTIN AICHHOLZ Not Available Start: 08-18-2024 End: 08-18-2024 Refill Kirstin Aichholz [employer] Work Phone: [facility] Comment on above: Type 2 diabetes fernandez itus without complications (CMS/HCC) Start: 08-11-2024 End: 08-12-2024 Refill Kirstin Aichholz [employer] Work Phone: [facility] Comment on above: Type 2 diabetes fernandez itus without complication, without long- term current use of insulin ([facility]/HCC) Start: 02-15-2024 End: 02-15-2024 ambulatory KIRSTIN AICHHOLZ Not Available Start: 02-15-2024 Patient encounter procedure Kirstin Romeliaz [employer] Work Phone: [facility] Start: 02-02-2024 End: 02-02-2024 ambulatory [facility] Start: 07-13-2023 End: 07-13-2023 ambulatory EPHRAIM [facility] Start: 09-07-2022 Telephone encounter Juice Sears MD Work Phone: Neurology Comment on above: Received Outside Med ical Records ([facility] ) Start: 08-23-2022 End: 08-24-2022 ambulatory LUIZ DEONNA Facility:[facility] Start: 08-23-2022 End: 08-23-2022 Patient encounter procedure Luiz PECK-C Work Phone: Neurosurgery Comment on above: Foot drop, right maki t (Primary Dx) Start: 08-15-2022 End: 08-16-2022 ambulatory [employer] KIRSTIN MILLER Facility:[facility] Start: 07-29-2022 Telephone encounter Juice Sears MD Work Phone: Neurology Comment on above: Other (Physician Recruiter apy Recertification Note ) Start: 07-26-2022 End: 07-26-2022 Office outpatient new 20 minutes Clayton Hopper DPM Work Phone: Dr[facility] 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); Foot drop, right foot Start: 06-16-2022 Telephone encounter Juice Sears MD Work Phone: Neurology Comment on above: Forms; Other (Discha rge Physician Orders) Start: 05-25-2022 Telephone encounter Juice Sears MD Work Phone: Neurology Comment on above: Forms (Physician Ord ers ([facility]//) Start: 05-23-2022 End: 07-29-2022 ambulatory [employer] KIRSTIN MILLER Facility:[facility] Start: 05-17-2022 End: 05-17-2022 ambulatory FANNIE BLANDON Facility:[facility] Start: 05-17-2022 End: 05-17-2022 Patient encounter procedure Juice Sears MD Work Phone: Neurosurgery Comment on above: Spinal stenosis of l umbar region, unspecified whether neurogenic claudication present (Primary Dx); Right leg weakness Start: 05-12-2022 Telephone encounter Juice Sears MD Work Phone: Neurology Comment on above: General ([facility]) Start: 05-06-2022 Telephone encounter Juice Sears MD Work Phone: Neurology Comment on above: Other ([facility] 04/17/22 - 06/15/22) Start: 04-29-2022 Telephone encounter Juice Sears MD Work Phone: Neurology Comment on above: Forms Start: 04-22-2022 Telephone encounter Juice Sears MD Work Phone: Neurology Comment on above: Forms ([facility]) Start: 04-15-2022 Telephone encounter Juice Sears MD Work Phone: Neurology Comment on above: Other (home health o rders requested) Start: 04-07-2022 End: 04-15-2022 Evaluation and management of inpatient Kirstin Miller Facility:[facility] Start: 04-07-2022 End: 04-15-2022 Evaluation and management of inpatient MD Glenroy Vera Work Phone: [facility] Start: 04-05-2022 Evaluation and manag ement of inpatient [facility] Start: 03-30-2022 End: 03-30-2022 ambulatory FANNIE BLANDON Facility:[facility] Start: 03-28-2022 End: 04-07-2022 Evaluation and management of inpatient Josue SHIRLEY Facility:[facility] Start: 03-24-2022 End: 03-28-2022 ambulatory Kirstin Miller Facility:[facility] Start: 03-24-2022 End: 03-28-2022 Evaluation and management of inpatient MD Glenroy Vera Work Phone: [facility] Start: 03-23-2022 End: 03-23-2022 ambulatory Glenroy Vera Other [facility] Other Start: 03-23-2022 Postop follow up vis it related to original rey Vera [facility] Start: 03-17-2022 End: 03-17-2022 ambulatory Kirstin Pricilla Leónz Facility:[facility] Start: 03-17-2022 End: 03-17-2022 Departed Referred MD Glenroy Vera Work Phone: [facility] [place] Start: 03-15-2022 ambulatory [employer] KIRSTIN PAUL Facil ity:[facility] Start: 03-09-2022 End: 03-09-2022 ambulatory NON STAFF Facility:[facility] Start: 03-09-2022 End: 03-09-2022 Patient encounter procedure MD Glenroy Vera Work Phone: [facility] Start: 02-28-2022 End: 02-28-2022 ambulatory Glenroy Vera Facility:[facility] Start: 02-28-2022 End: 02-28-2022 Patient encounter procedure MD Glenroy Vera Work Phone: [facility] Start: 02-18-2022 End: 02-19-2022 ambulatory [employer] KIRSTIN AICHHOLZ Facility:[facility] Start: 02-11-2022 End: 02-12-2022 ambulatory [employer] KIRSTIN AICHHOLZ Facility:[facility] Start: 02-09-2022 End: 02-10-2022 ambulatory [employer] KIRSTIN AICHHOLZ Facility:[facility] Procedures Date Procedure Procedure Detail Performing Clinician Start: 08-20-2024 ALL CBC WITH AUTO DIFF Kirstin Paul [employer] Work Phone: Start: 08-20-2024 ALL BASIC METABOLIC PANEL Kirstin Paul [employer] Work Phone: Start: 08-20-2024 Hemoglobin glycosylated a1c Kirstin Paul [employer] Work Phone: Start: 03-28-2022 Antibody screen FANNIE ONJASON Comment on above: Order Comment: Speci men Type: BLOOD SPECIMENOrdering Facility: [facility] Address: [address] [place] [id number] Performed By: #### T SCR ####CC MAIN BLOOD BANKCLIA [id number] [place] [id number] [place] Start: 03-27-2022 Urine culture MD Glenroy Vera Work Phone: Start: 03-23-2022 Plain chest X-ray MD Osborn Work Phone: Start: 03-23-2022 SARS Antigen (LFIA) MD Glenroy Vera Work Phone: Start: 02-28-2022 Dual energy X-ray absorptiometry MD Glenroy Vera Work Phone: Urine culture MD Glenroy sebastian Work Phone: Plan of Treatment Date Care Activity Detail Author Start: 02-25-2025 Urine screening for protein Diabetes: Urine Protein Screening [facility] Start: 02-18-2025 End: 02-18-2025 Patient encounter procedure 02/18/2025 10:30 AM EDT Office Visit [facility] [address] [place] [id number] Kirstin Miller NP [address] [place] [id number] [facility] Start: 02-14-2025 Medicare Annual Well ness (AWV) Medicare Annual Wellness (AWV) [facility] Start: 12-19-2024 Glaucoma screening Diabetes: R etinopathy Screening [facility] Start: 11-20-2024 Hemoglobin A1c measurement Diabetes: Hemoglobin A1C [facility] Start: 08-20-2024 End: 08-20-2025 Basic metabolic 1998 panel - Serum or Plasma Basic metabolic panel Lab Routine Type 2 diabetes mellitus without complication, without long-term current use of insulin ([facility]) Expected: 08/20/2024 (Approximate), Expires: 08/20/2025 [facility] Work Phone: Comment on above: Expected: 08/20/2024 (Approximate), Expires: 08/20/2025 Start: 08-20-2024 End: 08-20-2025 CBC W Auto Differential panel - Blood CBC and differential Lab Routine Other thrombophilia (CMS/HCC) Chronic atrial fibrillation (HCC) (CMS/HCC) Expected: 08/20/2024 (Approximate), Expires: 08/20/2025 [facility] Comment on above: Expected: 08/20/2024 (Approximate), Expires: 08/20/2025 Start: 08-20-2024 End: 08-20-2024 Patient encounter procedure 08/20/2024 9:20 AM EST Office Visit [facility] [address] [place] [address] Kirstin Miller NP [address] [place] [id number] [facility] Start: 06-09-2024 Influenza vaccination Influenza Vacc ine (#1) [facility] Start: 11-25-2023 Hemoglobin A1c measurement Diabetes: Hemoglobin A1C [facility] Start: 06-09-2022 Influenza vaccination INFLUENZA (#1) [facility] Start: 04-14-2022 [facility] Work Phone: Start: 04-07-2022 Hospital admission [facility] Work Phone: Start: 04-07-2022 Referral to clinical director regulatory affairs [facility] Work Phone: Start: 03-28-2022 [facility] Work Phone: Start: 03-27-2022 Urine culture Urine Culture [facility] Start: 03-24-2022 Referral to neurologist [facility] Work Phone: Start: 03-24-2022 Hospital admission [facility] Work Phone: Start: 03-17-2022 Excision of lumbar intervertebral disc OR Lumbar Discectomy (Not Applicable) [facility] Start: 11-23-2021 COVID-19 VACCINE (4 - Booster for Pfizer series) COVID-19 VACCINE (4 - Booster for Pfizer series) [facility] Start: 10-09-2021 ADVANCE DIRECTIVE DISCUSSION ADVANCE DIRECTIVE DISCUSSION [facility] Start: 10-09-2021 DEPRESSION ASSESSMENT DEPRESSION ASS ESSMENT [facility] Start: 09-17-2021 COVID-19 VACCINE (4 - Booster for Pfizer series) COVID-19 VACCINE (4 - Booster for Pfizer series) [facility] Start: 2005 BONE DENSITY BONE DENSITY [facility] Start: 1990 SHINGRIX VACCINE (1 of 2) SHINGRIX VACCINE (1 of 2) [facility] Start: 1959 Urine microalbumin profile DTAP,TDAP,TD (1 - Tdap) [facility] Start: 1958 Hepatitis B surface antibody level LDL CHOLESTEROL [facility] Start: 1950 3 comp foot exam completed DIABETIC FOOT EXAM [facility] Start: 1950 Hepatitis B screening URINE ALBUMIN:CREATININE RATIO [facility] Start: 1950 Hepatitis C antibody , confirmatory test DILATED RETINAL EXAM [facility] Start: 1946 PNEUMOCOCCAL: 65+ (1 - PCV) PNEUMOCOCCAL: 65+ (1 - PCV) [facility] Start: 1945 Hemoglobin A1c/Hemoglobin.total in Blood HBA1C [facility] Basophil count [facility] Work Phone: Basophil percent differential count [facility] Work Phone: Calcium [Mass/volume ] in Serum or Plasma [facility] Work Phone: Carbon dioxide, tota l [Moles/volume] in Serum or Plasma [facility] Work Phone: Chloride [Moles/volu me] in Serum or Plasma [facility] Work Phone: Creatinine and Glomerular filtration rate.predicted panel - Serum, Plasma or Blood [facility] Work Phone: Eosinophil percent differential count [facility] Work Phone: Eosinophils [#/volum e] in Blood [facility] Work Phone: Erythrocyte mean corpuscular volume determination [facility] Work Phone: Erythrocytes [#/volu me] in Blood [facility] Work Phone: Glucose [Mass/volume ] in Serum or Plasma [facility] Work Phone: Hematocrit [Volume Fraction] of Blood [facility] Work Phone: Hemoglobin [Mass/vol ume] in Blood [facility] Work Phone: Hemoglobin distribut ion, width determination [facility] Work Phone: Leukocytes [#/volume ] in Blood [facility] Work Phone: Lymphocyte count [facility] Work Phone: Lymphocyte percent differential count [facility] Work Phone: Mean corpuscular hemoglobin concentration determination [facility] Work Phone: Mean corpuscular hemoglobin determination [facility] Work Phone: Measurement of renal function [facility] Work Phone: Monocyte count [facility] Work Phone: Monocyte percent differential count [facility] Work Phone: Neutrophil count [facility] Work Phone: Neutrophil percent differential count [facility] Work Phone: Patient Education How [facility] Work Phone: Patient referral [facility] Work Phone: Platelet mean volume determination [facility] Work Phone: Platelets [#/volume] in Blood [facility] Work Phone: Potassium [Moles/vol ume] in Serum or Plasma [facility] Work Phone: SARS-CoV-2 (COVID-19 ) N gene [Presence] in Respiratory specimen by HARMONY with probe detection [facility] Work Phone: Sodium [Moles/volume ] in Serum or Plasma [facility] Work Phone: Urea nitrogen [Mass/volume] in Serum or Plasma [facility] Work Phone: [facility] Immunizations Immunization Date Immunization Notes Care Provider Fa [facility] 07-25-2023 Influenza, High-dose Seasonal, Quadrivalent, Preservative Free Kirstin Aichholz [employer] Work Phone: [facility] 07-25-2023 influenza virus vacc ine, unspecified formulation Kirstin Aichholz [employer] Work Phone: [facility] 08-08-2022 Influenza, High-dose Seasonal, Quadrivalent, Preservative Free Kirstin Aichholz [employer] Work Phone: [facility] 07-23-2021 COVID-19 mRNA, Comir libia (Pfizer) MD Glenroy Vera Work Phone: [facility] 07-16-2021 Influenza, Seasonal, Quadrivalent, Adjuvanted Kirstin Aichholz [employer] Work Phone: [facility] 12-03-2020 COVID-19 mRNA, Comir libia (Pfizer) MD Glenroy Vera Work Phone: [facility] 11-11-2020 COVID-19 mRNA, Comir libia (Pfizer) MD Glenroy Vera Work Phone: [facility] 06-06-2020 influenza, injectabl e, quadrivalent, preservative free Kirstin Aichholz [employer] Work Phone: [facility] 07-18-2019 Seasonal, quadrivale nt, recombinant, injectable influenza vaccine, preservative free Kirstin Aichholz [employer] Work Phone: [facility] 07-25-2018 Seasonal trivalent influenza vaccine, adjuvanted, preservative free Kirstin Aichholz [employer] Work Phone: [facility] 07-28-2017 influenza, high dose seasonal, preservative-free Kirstin Meansmegan [employer] Work Phone: [facility] 07-26-2016 pneumococcal polysaccharide vaccine, 23 valent Kirstin Aicanthanholz [employer] Work Phone: [facility] 03-23-2015 pneumococcal conjuga te vaccine, 13 valent Kirstin Claryholz [employer] Work Phone: [facility] Payers Date Payer Category Payer Private Health Insurance AARP mber [id number] 2022 Private Health Insurance [id number] 2022 Self-pay [id number] 2005 Medicare MEDICARE MEDICAR E A AND B [id number] 2005-Present [phone] [place] [address] Medicare [id number] 2005 Medicare [id number] 1959 Medicare [id number] 1959 [facility] [id number] 1940 Unknown [id number] 1940 Unknown [id number] 1940 Unknown [id number] 1940 Unknown [id number] .593 1940 Unknown [id number] 1940 Unknown [id number] 1940 Unknown [id number] .[id number] 1940 Unknown [id number] .1259 Unknown [id number] .531 Unknown [id number] .531 Unknown [id number] .531 Unknown [id number] .[id number] Unknown [id number] .531 Social History Date Type Detail Facility Tobacco smoking status WVIS Unknown if ever smoked [facility] Work Phone: Start: 1940 Sex Assigned At Female F [facility] Start: 03-09-2022 End: 02-15-2024 Tobacco smoking status NHIS Never smoked tobacco (finding) [facility] Start: 02-15-2024 End: 08-20-2024 Sex Assigned At [facility] Start: 05-17-2022 Tobacco smoking status NHIS Tobacco smoking consumption unknown [facility] Start: 1940 Sex Assigned At Not on file [facility] Start: 05-07-2022 End: 08-23-2022 Exposure to SARS-CoV-2 (event) Not sure [facility] Start: 02-15-2024 Tobacco use and exposure Smokeless tobacco non-user [facility] Start: 02-15-2024 End: 08-20-2024 Alcoholic beverage intake Lifetime non-drinker (finding) [facility] Start: 02-15-2024 End: 08-20-2024 History of Social function [facility] Start: 02-15-2024 Alcohol Comment coffee: 1-2 daily NO [facility] Goals Date Patient Goal Desired Activity /State Functional Status Date Assessment Result Facility 04-15-2022 Functional status Patient is 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 Baseline [facility] Work Phone: 03-28-2022 Functional status Patient is 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 Baseline [facility] Work Phone: 03-24-2022 Functional status Patient Not at Baseline [facility] Work Phone: Mental Status Date Assessment Result Facility 04-15-2022 Cognitive function Cognitive Sta tus Patient at Baseline [facility] Work Phone: 03-28-2022 Cognitive function Cognitive Sta tus Patient at Baseline [facility] Work Phone: 03-24-2022 Cognitive function Cognitive Sta tus Patient Not at Baseline [facility] Work Phone: Clinical Notes 03-23-2022 to 08-20-2024 Kirstin Miller NP - 08/20/2024 9:20 AM ESTKirstin Miller NP - 08/20/2024 6:39 AM ESTKirstin Miller NP - 08/20/2024 6:38 AM ESTKirstin Miller NP - 08/20/2024 6:38 AM ESTPatient Instructions Note Date & Type Note Facility 08-20-2024 History of Presen t illness Narrative Images from the original note were not included. kailyn Sarabia is a 83 y.o. female presents with chief complaint of No chief complaint on file. HPI: Diabetes She presents for her follow-up diabetic visit. She has type 2 diabetes mellitus. Her disease course has been stable. There are no hypoglycemic associated symptoms. Pertinent negatives for hypoglycemia include no dizziness, headaches, nervousness/anxiousness, seizures or tremors. Associated symptoms include foot paresthesias (right foot NT, more lumbar related). Pertinent negatives for diabetes include no blurred vision, no chest pain, no polydipsia, no polyphagia and no polyuria. There are no hypoglycemic complications. Symptoms are stable. Pertinent negatives for diabetic complications include no CVA, heart disease, nephropathy, peripheral neuropathy or retinopathy. Risk factors for coronary artery disease include diabetes mellitus, hypertension, post-menopausal and sedentary lifestyle. Current diabetic treatment includes oral agent (dual therapy). She is compliant with treatment all of the time. An BONIFACIO inhibitor/angiotensin II receptor donna is being taken. Eye exam is current. Hypertension This is a chronic problem. The current episode started more than 1 year ago. The problem is unchanged. Associated symptoms include peripheral edema. Pertinent negatives include no blurred vision, chest pain, headaches, neck pain, orthopnea, palpitations or shortness of breath. There are no associated agents to hypertension. Risk factors for coronary artery disease include diabetes mellitus, dyslipidemia, sedentary lifestyle and post-menopausal state. Past treatments include beta blockers and BONIFACIO inhibitors. The current treatment provides moderate improvement. There are no compliance problems. There is no history of CAD/ME, CVA or retinopathy. SUBJECTIVE: MEDICATIONS: Current Outpatient Medications Medication Instructions bumetanide (BUMEX) 1 mg, Oral, Daily PRN Eliquis 5 mg, 2 times daily ezetimibe (ZETIA) 10 mg, Nightly glipiZIDE (GLUCOTROL) 5 mg, Oral, 2 times daily before meals lisinopril 20 mg, Daily RT metFORMIN (GLUCOPHAGE) 1,000 mg, Oral, 2 times daily with meals metoprolol succinate XL (TOPROL-XL) 100 mg, Every morning rosuvastatin (CRESTOR) 5 mg, Nightly spironolactone (ALDACTONE) 25 mg, Once ALLERGIES: No Known Allergies REVIEW OF SYMPTOMS: Review of Systems Constitutional: Negative for appetite change, chills and fever. HENT: Negative for congestion, ear pain and sore throat. Eyes: Negative for blurred vision, pain, discharge, redness and visual disturbance. Respiratory: Negative for cough, shortness of breath and wheezing. Cardiovascular: Negative for chest pain, palpitations, orthopnea and leg swelling. Gastrointestinal: Negative for abdominal pain, blood in stool, constipation, diarrhea, nausea and vomiting. Genitourinary: Negative for difficulty urinating, dysuria and frequency. Musculoskeletal: Negative for arthralgias, back pain, joint swelling, myalgias and neck pain. Skin: Negative for rash and wound. Neurological: Positive for numbness (right foot, secondary to lumbar radiculopathy). Negative for dizziness, tremors, seizures, syncope and headaches. Psychiatric/Behavioral: Negative for behavioral problems, self-injury and suicidal ideas. The patient is not nervous/anxious. Hematological: Does not bruise/bleed easily. Endocrine: Negative for polydipsia, polyphagia and polyuria. Allergic/Immunologic: Negative for environmental allergies and food allergies. PAST MEDICAL HISTORY History reviewed. No pertinent past medical history. History reviewed. No pertinent surgical history. family history is not on file. OBJECTIVE: Visit Vitals BP 148/76 (BP Location: Left arm, Patient Position: Sitting, BP Cuff Size: Adult long) Pulse 59 Temp 97.8 F (Temporal) Resp 18 Wt 164 lb 6.4 oz SpO2 99% Smoking Status Never Physical Exam Vitals and nursing note reviewed. Constitutional: General: She is not in acute distress. Appearance: Normal appearance. She is obese. HENT: Head: Normocephalic and atraumatic. Right Ear: External ear normal. Left Ear: External ear normal. Nose: Nose normal. Mouth/Throat: Mouth: Mucous membranes are moist. Eyes: Extraocular Movements: Extraocular movements intact. Conjunctiva/sclera: Conjunctivae normal. Neck: Vascular: No carotid bruit. Cardiovascular: Rate and Rhythm: Normal rate and regular rhythm. Pulses: Normal pulses. Heart sounds: Normal heart sounds. Pulmonary: Effort: Pulmonary effort is normal. Breath sounds: Normal breath sounds. No wheezing or rales. Abdominal: General: Bowel sounds are normal. There is no distension. Palpations: Abdomen is soft. There is no mass. Tenderness: There is no abdominal tenderness. Musculoskeletal: General: Normal range of motion. Cervical back: Normal range of motion and neck supple. Right lower leg: Edema present. Left lower leg: Edema present. Comments: Trace-1+ RLE, trace to LLE Uses a walker to walk Skin: General: Skin is warm and dry. Capillary Refill: Capillary refill takes 2 to 3 seconds. Findings: No rash. Neurological: General: No focal deficit present. Mental Status: She is alert and oriented to person, place, and time. Motor: Weakness present. Gait: Gait abnormal. Psychiatric: Mood and Affect: Mood normal. Behavior: Behavior normal. Thought Content: Thought content normal. Judgment: Judgment normal. ASSESSMENT AND PLAN: Follow up in about 6 months (around 02/17/2025) for Recheck. Problem List Items Addressed This Visit Atrial fibrillation (CMS/HCC) Continue eliquis therapy as b donna therapy No current symptoms Relevant Orders CBC and differential Benign essential HTN ([facility]/HCC) Please check blood pressure daily and record- call if higher than 150/90 DASH diet Limit caffeine Take medication as directed Contact office if chest pain, pressure, dizziness, shortness of breath, swelling legs Recommend slow position changes I do recommend keeping at current dose of meds, with her age concern would be over possible increase in dizziness and possible fall Coronary arteriosclerosis ([facility]) Cont statin, b donna Unspecified diastolic (congestive) heart failure ([facility]/HCC) Continue with cardiology as well as diuretics, BONIFACIO and b donna Type 2 diabetes mellitus without complication ([facility]) - Primary Check blood sugars daily, notify if <70 or >200. Take medications (pills or insulin) as directed. Monitor for s/s of hypoglycemia (sweaty, dizziness, nausea, vomiting, or shakiness). Watch for increase in thirst, urination, or appetite. Inspect feet frequently monitoring for open wounds , and also recommend yearly eye exam. Pt should attempt to remain as physically active as chronic conditions allow, as well as trying to follow a diet low in carbohydrates, and simple sugars. A1c 6.1% Relevant Orders POCT glycosylated hemoglobin (Hb A1C) docked device (Completed) Basic metabolic panel Other thrombophilia (CMS/HCC) Continue with eliquis Relevant Orders CBC and differential Peripheral vascular disease, unspecified ([facility]/HCC) Continue current meds Control of BP as well as DM Type 2 diabetes mellitus with diabetic neuropathy, unspecified (CMS/HCC) Recommend tight blood glucose control Other Visit Diagnoses Type 2 diabetes mellitus without complications (CMS/HCC) Relevant Medications glipiZIDE (Glucotrol) 5 MG tablet metFORMIN (Glucophage) 1000 MG tablet Other Relevant Orders POCT glycosylated hemoglobin (Hb A1C) docked device (Completed) Basic metabolic panel Associated Problem(s): Other thrombophilia (CMS/HCC) Continue with eliquis Associated Problem(s): Type 2 diabetes mellitus without complication (CMS/HCC) Check blood sugars daily, notify if <70 or >200. Take medications (pills or insulin) as directed. Monitor for s/s of hypoglycemia (sweaty, dizziness, nausea, vomiting, or shakiness). Watch for increase in thirst, urination, or appetite. Inspect feet frequently monitoring for open wounds , and also recommend yearly eye exam. Pt should attempt to remain as physically active as chronic conditions allow, as well as trying to follow a diet low in carbohydrates, and simple sugars. A1c 6.1% Associated Problem(s): Unspecified diastolic (congestive) heart failure (CMS/HCC) Continue with cardiology as well as diuretics, BONIFACIO and b donna Associated Problem(s): Peripheral vascular disease, unspecified (CMS/HCC) Continue current meds Control of BP as well as DM Associated Problem(s): Coronary arteriosclerosis (CMS/HCC) Cont statin, b donna Associated Problem(s): Benign essential HTN (CMS/HCC) Please check blood pressure daily and record- call if higher than 150/90 DASH diet Limit caffeine Take medication as directed Contact office if chest pain, pressure, dizziness, shortness of breath, swelling legs Recommend slow position changes I do recommend keeping at current dose of meds, with her age concern would be over possible increase in dizziness and possible fall Associated Problem(s): Atrial fibrillation (CMS/HCC) Continue eliquis therapy as b donna therapy No current symptoms Associated Problem(s): Type 2 diabetes mellitus with diabetic neuropathy, unspecified (CMS/HCC) Recommend tight blood glucose control documented in this encounter [facility] 08-20-2024 Instructions Kirstin Miller NP - 08/20/2024 9:20 AM EST Monitor blood pressure at home, if consistent higher than 140/90 let me know documented in this encounter [facility] 02-02-2024 Note MD Cardiology - [facility] Hawa Saeed Sarabia is a 83 y.o. year [...] the morning., Disp: (more content not included)... [facility] 07-13-2023 Note Patient here for 6 m [...] All other systems reviewed and are negative. [facility] 07-13-2023 Note Cardiovascular Medic ine [facility] SUBJECTIVE No chief complaint on file. [...] Atrial fibrillation (CMS/HCC) CHF (congestive heart failure) (CMS/HCC) Coronary artery disease Diabetes mellitus (CMS/HCC) Heart valve disease Hyperlipidemia Hypertension Family History [...] rhythm. Cardiac c (more content not included)... [facility] 09-07-2022 Miscellaneous Notes Images from the original note were not included. [facility] d/c note reviewed: Discharge summary uploaded to [email or web address]. documented in this encounter [facility] 08-23-2022 Note HNO ID: [id number] Author: Luiz Adam PA-C Service: ? Author Type: Physician Infant Nanny Type: Progress Notes Filed: 08/23/2022 1:10 PM [...] SIGNATURE: Luiz Adam PA-C PATIENT NAME: Saeed aSrabia DATE: August 23, 2022 TIME: 9:09 AM PAGER: [facility] 08-23-2022 History of Presen t illness Narrative [...] 9:09 AM PAGER: documented in this encounter [facility] 08-10-2022 History of Presen t illness [...] for its avalibilty documented in this encounter [facility] 07-29-2022 Miscellaneous Notes Paperwork uploaded via [employer]. Sent to Luis Adam for review and signature. Copies faxed to Tommie @ [phone] and onbase. Francis Mcmanus RN SURGERY creative assistant Calling: Fax received from [facility] Dirk Villareal PT Is Patient Requesting Appointment?: No Is Patient Calling due to Pain?: No Is Patient Requesting Medication?: No General Concerns: Physical Therapy Recertification Note to be signed and returned by fax to [phone]. Patient of: Dr. Sears documented in this encounter [facility] 06-16-2022 Miscellaneous Notes Paperwork uploaded via [employer] and sent to Luis Adam for review and signature. Copies faxed to [facility] [address] [facility] at [phone] per request and onbase. Francis Mcmanus RN Form received: From (agency / facility / parent): [facility] crane ladle person (if given): none given Phone #: [phone] Fax # : [phone] Email: Information requested: Discharge Physician Orders (Devero) Patient of Dr. Sears documented in this encounter [facility] 05-26-2022 Miscellaneous Notes Forms uploaded via [employer]. Sent to Dr. Sears for review and signature. Copies faxed to [facility] at number provided and onbase. Francis Mcmanus RN Form received: From (agency / facility / parent): [facility] crane ladle person (if given): none given Phone #: [phone] Fax # : [phone] Email: Information requested: Physician Orders (Devero) Patient of Dr. Sears documented in this encounter [facility] 05-17-2022 Note HNO ID: [id number] Author: Juice Sears MD Service: ? Author [...] PA-C May 17, 2022 1:04 PM SIGNATURE: Jiuce Sears MD PATIENT NAME: Saeed Sarabia DATE: May 17, 2022 TIME: 11:12 AM PAGER: Postop visit s/p lumbar laminectomy for lumbar radicular syndrome incision good R foot drop improving walking with walker Should start OP PT Juice Sears MD [facility] 05-17-2022 History of Presen t illness Narrative [...] Juice Sears MD documented in this encounter [facility] 05-12-2022 Miscellaneous Notes Forms uploaded via [employer]. Sent to Dr. Sears for review and signature. Copies faxed to [facility] at [phone] and onbase. Francis Mcmanus RN Form received: From (agency / facility / parent): [facility] crane ladle person (if given): Phone #: [phone] Fax # : [phone] Email: Information requested: Physicians orders Patient of Dr. Sears Forwarded to nurse. documented in this encounter [facility] 05-06-2022 Miscellaneous Notes POC paperwork uploaded to [employer] and sent to Dr. Sears for review and signature. Copies faxed to [facility] at [phone] and onbase. Francis Mcmanus RN SURGERY creative assistant Calling: [facility] Is Patient Requesting Appointment?: No Is Patient Calling due to Pain?: No Is Patient Requesting Medication?: No General Concerns: Plan of Care 04/17/22 - 06/15/22 Patient of: Dr. Sears documented in this encounter [facility] 04-29-2022 Miscellaneous Notes Spoke to Mojgan from [facility] regarding plan of care - explained that Dr. Platt will not typically follow patients for extended recovery past the post surgical period. Saeed has a follow up appointment 05/17 - will discuss at this time if her home health plan of care needs to be transitioned to a different practitioner. Forms uploaded to [employer] and sent to Dr. Sears for review and signature. Copies faxed to [facility] [phone] and onbase. Francis Mcmanus RN Form received: From (agency / facility / parent): [facility] crane ladle person (if given): Mojgan Phone #: [phone] Fax # : ATTN Mojgan [phone] Email: Information requested: Plan of care Patient of Dr. Sears documented in this encounter [facility] 04-22-2022 Miscellaneous Notes Forms received. Uploaded to [employer] and sent to Dr. Sears for review and signature. Copies sent to [facility] at fax [phone] and onbase. Francis Mcmanus RN Form received: From (agency / facility / parent): [facility] crane ladle person (if given): Saeed Sarabia Phone #: [phone] (home) Fax # : [phone] Email: Information requested: therapy evaluation and care plan Patient of Dr. sears documented in this encounter [facility] 04-20-2022 Miscellaneous Notes PT and home care orders faxed to listed contact and number below. Can fax orders to [phone] to Debbie Miller. Cris Leger RN at [facility] [phone], reports start of care for skilled nurse, PT, OT, ST and bath aide as of 04/16/22. No callback is necessary. Called and left vm with ELFEGO Elliott - requesting fax or email to provide requested orders. Francis Mcmanus RN Called and left VM to ELFEGO Elliott - requesting fax number or email to send PT/home health orders. Francis Mcmanus RN Orders placed Dimas Ferreira APRN.CNP Patient s/p 03/31/2022: L2-L5 laminectomy with Dr. Sears. Home health agency is requesting PT and home health order - per epic review, no orders seen in chart. Will forward to BLAYNE for review. Francis Mcmanus RN SURGERY creative assistant Calling: Debbie Miller RNmanagement psychologist coding team lead [facility] direct line Is Patient Requesting Appointment?: No Is Patient Calling due to Pain?: No Is Patient Requesting Medication?: No General Concerns: Requesting orders for home health PT and nurse to check on patient in the home. Patient of: Dr. Sears documented in this encounter [facility] 04-13-2022 Progress note Note Date/Time April 13, 2022 1:52pm [facility] [address] [place] [address] Physiatry(Rehab) Progress Note Signed Patient: Saeed Sarabia MR#: [id number] : 1940 Acct:[id number] Age/Sex: 81 / F Adm Date: 2 Loc: 5T Room: [address] [place] [address] Type : ADM IN Attending Dr: Kingston Gao MD Copies to: ~ <Brooklyn Swanson APRN - Last Filed: 04/13/22 13:52> Date of Service: 04/13/2022 Subjective <Brooklyn Swanson APRN - Last Filed: 04/13/22 13:52> Subjective Narrative: Ms. Saraiba is a 81 year old female with medical history of type 2 diabetes, A. fib anticoagulated with Eliquis, CAD, hypertension, hyperlipidemia presents to inpatient rehabilitation for strengthening s/p lumbar decompression surgery. She initially presented to [facility] ER on 03/23/2022 with complaints of bilateral [...] She has had an MRI performed at [facility] with Dr. 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 She was scheduled to have a lumbar surgery, but it was cancelled. [facility] neurosurgery was consulted, as there was no neurosurg coverage at [facility] on the day of admission. She was accepted to [facility] and transferred non-emergently, since there was no [...] mg 04/07/22 15:58 Bisacodyl 10 Mg Supp.Rect VT 04/07/23 15:57 DAILY PRN Constipation Bumetanide 0.5 [...] 15:58 Docusate Enema 283 Mg/5 Ml Enema VT 04/07/23 15:57 DAILY PRN Constipation Gabapentin 100 [...] 12.5 mg DAILY LAUREN Administration Assessment/Plan <Brooklyn Swanson APRN - Last Filed: 04/13/22 13:52> Assessment/Plan (1) [...] equipment to enhance the patient's a functional sabianism Ensure adequate nutrition and hydration Sleep: Reports no issues Pain: Reports Tylenol provides sufficient relief. Occasional neuropathic pains in the right lower leg, may increase gabapentin as needed. Discharge planning: Home with End of this week. I spent greater than 15 minutes for services, including iism-xi-cske encounter with the patient, discussion of the case, plan of care, and exam; and pfofmfb-ss-plpd activities, such as reviewing pertinent business info consultant documentation, recent therapy notes, laboratory and radiology studies, and discussion of case with care team including physician, nursing, case picker, and therapists. More than 50 % of [...] chart, including current orders, allied health and business info consultant notes, labs/imaging and performed jacobs elements of exam and I formulated the plan of care and facilitated the medical decision making and confirmed the nurse practitioner note, as above Plan for home Monday with family FI went well today Documented By: Brooklyn Swanson APRN 04/13/22 1 342 Signed By: <Electronically signed by OMID Swanson> 04/13/22 1352 <Electronically signed by Kingston Gao MD> 04/13/222046 [facility] Work Phone: 1(995) 568-924107-06-2022 Progress note Author Kingston Gao [facility] April 13, 2022 10:22am Note Date/Time April 13, 2022 10:[address] [facility] [address] [place] [address] Physiatry(Rehab) Progress Note Signed Patient: Saeed Sarabia MR#: [id number] : 1940 Acct:[id number] Age/Sex: 81 / F Adm Date: 2 Loc: Room: [address] [place] [address] Type : ADM IN Attending Dr: Kingston Gao MD Copies to: ~ Date of Service: 04/12/2022 Subjective Subjective Narrative: Ms. Sarabia is a 81 year old female with medical history of type 2 diabetes, A. fib anticoagulated with Eliquis, CAD, hypertension, hyperlipidemia presents to inpatient rehabilitation for strengthening s/p lumbar decompression surgery. She initially presented to [facility] ER on 03/23/2022 with complaints of bilateral [...] She has had an MRI performed at [facility] with Dr. 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 She was scheduled to have a lumbar surgery, but it was cancelled. [facility] neurosurgery was consulted, as there was no neurosurg coverage at [facility] on the day of admission. She was accepted to [facility] and transferred non-emergently, since there was no [...] Kris PRN Reason Stop Dose Admin Acetaminophen 500 [...] mg 04/07/22 15:58 Bisacodyl 10 Mg Supp.Rect VT 04/07/23 15:57 DAILY PRN Constipation Bumetanide 0.5 [...] 15:58 Docusate Enema 283 Mg/5 Ml Enema VT 04/07/23 15:57 DAILY PRN Constipation Gabapentin 100 [...] equipment to enhance the patient's a functional sabianism Ensure adequate nutrition and hydration Sleep: Reports no issues Pain: Reports Tylenol provides sufficient relief. Occasional neuropathic pains in the right lower leg, may increase gabapentin as needed. Discharge planning: Home with End of this week. Documented By: Kingston Gao MD 04/12/22 1012 Signed By: <Electronically signed by Kingston Gao MD> 04/13/22 1022 [facility] Work Phone: 1(283) 607-626907-01-2022 History and physical note Author Kingston Gao [facility] April 08, 2022 1:06pm Note Date/Time April 08, 2022 10:50 am [facility] [address] [place] [address] Physiatry (Rehab) H&P Signed Patient: Saeed Sarabia MR#: [id number] : 1940 Acct:[id number] Age/Sex: 81 / F Adm Date: 2 Loc: Room: 1G0115-8 Type : ADM IN Attending Dr: Kingston Gao MD Copies to: OMID Walker MD Lisa J Aichholz, [employer]-C~ <Brooklyn Swanson APRN - Last Filed: 04/08/22 [...] lumbar decompression surgery. She initially presented to [facility] ER on 03/23/2022 with complaints of bilateral [...] She has had an MRI performed at [facility] with Dr. 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 She was scheduled to have a lumbar surgery, but it was cancelled. [facility] neurosurgery was consulted, as there was no neurosurg coverage at [facility] on the day of admission. She was accepted to [facility] and transferred non-emergently, since there was no [...] following angiography History of cardioversion 2011 (w/RODRIGUEZ), 2016 Hyperlipidemia Hypertension Mitral valve regurgitation Surgical History [...] additional complaints, except as documented Meds <Brooklyn Swanson, HEAD LOFT WORKER - Last Filed: 04/08/22 13:03> Medications and [...] 5 Mg Tablet) 5 mg PO BID [facility] Stop: 04/10/23 08:59 Atorvastatin Calcium (Atorvastatin 20 Mg Tablet) 20 mg PO DAILY LAUREN Stop: 04/08/23 08:59 Last Admin: 04/08/22 09:48 Dose: 20 mg Documented by: Bisacodyl (Bisacodyl 10 Mg Supp.Rect) 10 mg VT DAILY PRN PRN Reason: Constipation Stop: 04/07/23 [...] Enema 283 Mg/5 Ml Enema) 283 mg VT DAILY PRN PRN Reason: Constipation Stop: 04/07/23 [...] 500 Mg Tablet) 500 mg PO BID.WITH.MEALS LAUREN Stop: 04/07/23 16:59 Last Admin: 04/08/22 09:48 Dose: 500 mg Documented by: Metoprolol Succinate (Metoprolol Succinate 100 Mg Tab.Er.24h) 100 mg PO DAILY LAUREN Stop: 04/08/23 08:59 [...] 12.5 Mg Tablet) 12.5 mg PO DAILY [facility] [...] % (Auto) 61.2 Lymph % (Auto) 26.1 Webb % (Auto) 9.4 Eos % (Auto) 2.7 Baso % (Auto) 0.6 Neut # (Auto) 4.7 Lymph # (Auto) 2.0 Webb # (Auto) 0.7 Eos # (Auto) 0.2 [...] MPV Neut % (Auto) Lymph % (Auto) Webb % (Auto) Eos % (Auto) Baso % (Auto) Neut # (Auto) Lymph # (Auto) Webb # (Auto) Eos # (Auto) Baso # [...] 10 days Expected Discharge Destination: Home Rehabilitation IGC: 03.9 Primary Diagnosis: Lumbar stenosis status postlaminectomy with [...] 24 hour daily monitoring and intervention from Wireless Manager as well as other consulting physicians including internal medicine as well as 24 hour daily client hr manager nursing - for medical safe / optimal [...] equipment to enhance the patient's a functional sabianism Ensure adequate nutrition and hydration Sleep: Reports no issues Pain: Reports Tylenol provides sufficient relief. Occasional neuropathic pains in the right lower leg, may increase gabapentin as needed. Discharge planning: Home with in 7 to 10 days. I spent greater than 15 minutes for services, including xfle-qf-joqx encounter with the patient, discussion of the case, plan of care, and exam; and bxfnyts-ag-cqky activities, such as reviewing pertinent business info consultant documentation, recent therapy notes, laboratory and radiology studies, and discussion of case with care team including physician, nursing, case picker, and therapists. More than 50 % of [...] chart, including current orders, allied health and business info consultant notes, labs/imaging and performed jacobs elements [...] equipment to enhance the patient's a functional sabianism Encourage deep breathing exercises and incentive spirometry RD evaluation Ensure adequate nutrition and hydration Discharge planning. Documented By: Brooklyn Swanson APRN 04/08/22 1 047 Signed By: <Electronically signed by Kingston Gao MD> 04/08/22 1306 [facility] Work Phone: 1(591) 996-302407-01-2022 Consult note Author Justyn Spann [facility] April 08, 2022 1:04pm Note Date/Time April 08, 2022 1:01p [facility] [address] [place] [address] Hospitalist Consult Note Signed Patient: Saeed Sarabia MR#: [id number] : 1940 Acct:[id number] Age/Sex: 81 / F Adm Date: 2 Loc: Room: [address] [place] [address] Type : ADM IN Attending Dr: Kingston Gao MD Copies to: MD Kingston Stauffer MD Lisa J Aichholz, [employer]-C~ HPI DATE OF CONSULTATION: 04/08/22 REQUESTING PROVIDER: Kingston Gao Consult Narrative HPI: Patient is an 81-year-old female, with known history of spinal stenosis, who underwent spinal surgical intervention at [facility]. She has presented to our facility on 05 April, complaining of severe pain in the right lower extremity, foot drop, which was attributed to her known spinal stenosis. Arrangements were made, and the patient was transferred to [facility] for surgical care. The procedure was [...] post spinal decompressive surgery for stenosis at [facility]. No complications. Further postoperative care per [...] problems include Dyslipidemia?see notes above GERD Hypertension [facility] Vaccinated for COVID-19?: Yes Medical History (Updated [...] 08:59 BID LAUREN Atorvastatin Calcium 20 mg 07/01/22 09:00 04/08/22 09:48 Atorvastatin 20 Mg Tablet PO 04/08/23 08:59 20 mg DAILY LAUREN Administration Bisacodyl 10 mg 04/07/22 15:58 Bisacodyl 10 Mg Supp.Rect VT 04/07/23 15:57 DAILY PRN Constipation Bumetanide 0.5 [...] 15:58 Docusate Enema 283 Mg/5 Ml Enema VT 04/07/23 15:57 DAILY PRN Constipation Ezetimibe 10 [...] % (Auto) 61.2, Lymph % (Auto) 26.1, Webb % (Auto) 9.4, Eos % (Auto) 2.7, Baso% (Auto) 0.6, Neut # (Auto) 4.7, Lymph # (Auto) 2.0, Webb # (Auto) 0.7, Eos # (Auto) 0.2, Baso # (Auto) 0.0, Nucleated RBC % (auto) 0.1 04/07/22 21:44: POC Glucose 161 04/07/22 17:16: POC Glucose 110 Documented By: Justyn Spann MD 04/08/22 1257 Signed By: <Electronically signed by Justyn Spann MD> 04/08/22 1304 [facility] Work Phone: 1(345) 599-950506-30-2022 NoteHNO ID: [id number] Author: Kirstin Lord RN Service: Care Management Author Type: Registered Nurse Type: Care Mgt Progress Note Filed: 04/07/2022 1:04 PM Note Text: CARE MANAGEMENT DISCHARGE NOTE SERVICE DATE: 04/07/2022 SERVICE TIME: 1256 LOS: 10 days Admission Date: 03/28/2022 DISCHARGE ARRANGEMENT (list agency and phone number) Discharge Arrangement: Acute Rehabilitation Facility Provider Name: [facility] CAREGIVER ASSESSMENT: Caregiver is ready, willing and able to meet the patient's needs as recommended by the inter-professional team:: Other: See Comment (TBD) Patient's transition needs and plan for meeting these needs: Plan for AR. HANDOFF COMMUNICATION: Handoff to: Other Caregiver (Nurse to Nurse report. Summary of care to be sent to [facility].) TRANSPORTATION ARRANGEMENTS: Transportation Arrangements: Ambulance Transportation Agency and Phone #:: [facility] [phone] Date of Trip: 04/07/22 Time of Trip: 1300 Type of Service: BLS Non-emergency Is Patient Medicaid Pending?: No Was transportation financial coverage discussed with family?: Patient;Spouse;Family (Daughter Lorie) Manager [employer] Location: Main [place] Destination: [facility] Financial Care Management Responsibility: None ADDITIONAL CONTACT RESOURCES: N/A Discharge Information Row Name Admission (Current) from 03/28/2022 in [place] [id number] Rehab Facility Agency [facility] D/C ready. Plan for AR. [facility] [place] has accepted. Pt. to D/C today at 1 PM via MMT-stretcher, BLS as was arranged on 04/05/2022 via [employer]. Chart envelope updated and in pt. chart rack. Report number provided and Nurse aware. D/C instructions, snapshot, and COVID-19 test results from 04/06/2022 sent via [employer]. Pt. and family ( and daughters) aware, satisfied, and agreeable to D/C plan and freedom of choice. SIGNATURE: Kirstin Lord RN PATIENT NAME: Saeed Sarabia DATE: April 07, 2022 TIME: 12:55 PM PAGER/CONTACT #: [phone]22 NoteHNO ID: [id number] Author: Kirstin Lord RN Service: Care Management Author Type: Registered Nurse Type: Care Mgt Progress Note Filed: 04/06/2022 1:45 PM Note Text: CARE MANAGEMENT PROGRESS NOTE SERVICE DATE: 04/06/2022 SERVICE TIME: 1341 LOS: 9 days Needs Prior to Discharge: To Be Determined;Other: See Comment (COVID-19 test, per [place] protocol) Plan for D/C tomorrow, 04/07/2022. Plan for AR. [facility] has accepted. A bed [...] follow for D/C planning needs. SIGNATURE: Kirstin Shomon, RN PATIENT NAME: Saeed Sarabia DATE: April 06, 2022 TIME: 1:41 PM PAGER/CONTACT #: [phone]06-29-2022 NoteHNO ID: [id number] Author: Fannie Blandon PA-C Service: Neurosurgery Author Type: Physician Infant Nanny Type: Progress Notes Filed: 04/06/2022 11:20 AM Note Text: SERVICE DATE: 04/06/2022 SERVICE TIME: 11:20 AM NEURO SURGERY PROGRESS NOTE Account #: Data Unavailable Admission Date: 03/28/2022 Date of Evaluation: April 06, 2022 Time of Evaluation: 11:19 AM Attending: Dr. Juice Sears MD. Location: [place] [id number] Please page Mon-Mon-4p: Fannie Blandon PA-C [phone] Mon-Monp-6p: Afshin Tran PA-C Mon-Mon- and weekends: or BLAYNE information coordinator Subjective S/p L3-L5 laminectomy INTERVAL HPI: reports [...] assistance. Muscle strength: UE BICEPS TRICEPS DELTS Monitoring Analyst R 5/5 5/5 5/5 5/5 L 5/5 [...] size. Right ventricular systol (more content not included)...[facility]06-28-[facility]22 NoteHNO ID: [id number] Author: Kirstin Lord RN Service: Care Management Author Type: Registered Nurse Type: Care Mgt Progress Note Filed: 04/05/2022 1:26 PM Note Text: CARE MANAGEMENT PROGRESS NOTE SERVICE DATE: 04/05/2022 SERVICE TIME: 1321 LOS: 8 days Needs Prior to Discharge: To Be Determined;Discharge Transportation;Other: See Comment (COVID-19 test, per AR protocol) D/C ready. Plan for AR. [facility] is the facility of [...] 05, 2022 TIME: 1:21 PM PAGER/CONTACT #: [phone] [facility] Center06-28-2022 NoteHNO ID: [id number] Author: Fannie Blandon PA-C Service: Neurosurgery Author Type: Physician Infant Nanny Type: Progress Notes Filed: 04/05/2022 12:46 PM Note Text: SERVICE DATE: 04/05/2022 SERVICE TIME: 12:46 PM NEURO SURGERY PROGRESS NOTE Account #: Data Unavailable Admission Date: 03/28/2022 Date of Evaluation: April 04, 2022 Time of Evaluation: 11:50 AM Attending: Dr. Juice Sears MD. Location: H060 043/H060-43 Please page -p: Fannie Blandon PA-C [phone] Mon-Mon-6p: Afshin Tran PA-C Mon-Mon-7a and weekends: [phone] or BLAYNE information coordinator Subjective S/p L3-L5 laminectomy INTERVAL HPI: reports [...] assistance. Muscle strength: UE BICEPS TRICEPS DELTS Monitoring Analyst R 5/5 5/5 5/5 5/5 L 5/5 [...] atherosclerotic. Echo: Exam indication (more content not included)...[facility] 04-04-2022 NoteHNO ID: [id number] Author: Kirstin Lord RN Service: Care Management Author Type: Registered Nurse Type: Care Mgt Progress Note Filed: 04/04/2022 3:35 PM Note Text: CARE MANAGEMENT PROGRESS NOTE SERVICE DATE: 04/04/2022 SERVICE TIME: 1523 LOS: 7 days Needs Prior to Discharge: To Be Determined;Patient/Family;Discharge Transportation;Accepting Facility;Bed Availability D/C ready. Plan for AR. A referral had been sent to [facility] and [facility] on 04/01/2022. [facility] is the facility of choice. No bed is available at this time. Facility is uncertain when a bed will be available. [facility] able to accept. Pt., pt.'s , and pt.'s daughter aware of the above. Family/pt. still very much interested in placement at [facility] due to proximity to pt.'s home. Family is requesting for this CM to follow up tomorrow with [facility] in the AM about bed availability. In the meantime, daughter is requesting that a referral be sent to [facility]. Referral sent. Await response. Pt. and family aware that if a bed is not available tomorrow at [facility] and [facility] can not accept, plan will be for admit to [facility]. COVID-19 test sent per [facility] protocol. CM/SW to follow for D/C planning needs. SIGNATURE: Kirstin Lord RN PATIENT NAME: Saeed Sarabia DATE: April 04, 2022 TIME: 3:23 PM PAGER/CONTACT #: [phone] County Health Center06-27-2022 NoteHNO ID: [id number] Author: Fannie Blandon PA-C Service: Neurosurgery Author Type: Physician Infant Nanny Type: Progress Notes Filed: 04/04/2022 11:53 AM Note Text: SERVICE DATE: 04/04/2022 SERVICE TIME: 11:53 AM NEURO SURGERY PROGRESS NOTE Account #: Data Unavailable Admission Date: 03/28/2022 Date of Evaluation: April 04, 2022 Time of Evaluation: 11:50 AM Attending: Dr. Juice Sears MD. [address] Please page 7a-4p: Fannie Blandon PA-C [phone] 4p-6p: Afshin Tran PA-C Mon-Mon 6p-7a and weekends: [phone] or BLAYNE information coordinator Subjective S/p L3-L5 laminectomy INTERVAL HPI: reports [...] assistance. Muscle strength: UE BICEPS TRICEPS DELTS Monitoring Analyst R 5/5 5/5 5/5 5/5 L 5/5 5/5 5/5 5/5 LE Hip Flex Knee Flex Knee Extend Plantarflex Dorsiflex EHL R 4/5 4/5 4/5 4/5 /5 2/5 L 5/5 5/5 5/5 5/5 5/5 [...] in size. Left ventri (more content not included)...[facility]06-26-2022 NoteHNO ID: [id number] Author: Fannie Blandon PA-C Service: Neurosurgery Author Type: Physician Infant Nanny Type: Progress Notes Filed: 04/03/2022 5:16 PM Note Text: SERVICE DATE: 04/03/2022 SERVICE TIME: 5:16 PM NEURO SURGERY PROGRESS NOTE Account #: Data Unavailable Admission Date: 03/28/2022 Date of Evaluation: April 03, 2022 Time of Evaluation: 5:12 PM Attending: Dr. Juice Sears MD. Location: [facility] 043/[id number] Please page -p: Fannie Blandon PA-C [phone] -6p: Afshin Tran PA-C - and weekends: or BLAYNE information coordinator Subjective S/p L3-L5 laminectomy INTERVAL HPI: reports [...] assistance. Muscle strength: UE BICEPS TRICEPS DELTS Monitoring Analyst R 5/5 5/5 5/5 5/5 L 5/5 [...] 120/46 Pulse: 77 63 62 68 Resp: 16 Temp: 36.8 ?C (98.2 ?F) 36.5 [...] no pneumothorax. Cardiomediastinal silhouette (more content not included)...[facility]06-25-2022 NoteHNO ID: [id number] Author: Fannie Blandon PA-C Service: Neurosurgery Author Type: Physician Infant Nanny Type: Progress Notes Filed: 04/02/2022 1:07 PM Note Text: SERVICE DATE: 04/02/2022 SERVICE TIME: 1:07 PM NEURO SURGERY PROGRESS NOTE Account #: Data Unavailable Admission Date: 03/28/2022 Date of Evaluation: March 29, 2022 Time of Evaluation: 12:45 PM Attending: Dr. Juice Sears MD. Location: [place] [address] Please page -4p: Fannie Blandon PA-C [phone] -6p: Courtney Deshpande [facility] [phone] Mon-Mon- and weekends: [phone] or BLAYNE information coordinator Subjective S/p L3-L5 laminectomy INTERVAL HPI: reports [...] assessed Muscle strength: UE BICEPS TRICEPS DELTS Monitoring Analyst R 5/5 5/5 5/5 5/5 L 5/5 [...] mmol/L Final VITAL SIGNS 24 HOUR REVIEW: 04/01/22212304/02/22 0102 04/02/22 0534 04/02/22 0955 BP: 150/68 128/61 120/53 116/56 Pulse: 72 77 72 74 Resp: Temp: 37.2 ?C (99 ?F) 36.5 ?C [...] consolidation is seen. No (more content not included)...[facility]06-24-2022 NoteHNO ID: [id number] Author: Kirstin Lord RN Service: Care Management Author Type: Registered Nurse Type: Care Mgt Initial Assessment Filed: 04/01/2022 3:22 PM Note Text: CARE MANAGEMENT: ASSESSMENT AND DISCHARGE PLAN SERVICE DATE: April 01, 2022 SERVICE TIME: 1514 PRIMARY CARE PHYSICIAN: No primary care provider on file. Phone: None Primary Contact: Extended Emergency Contact Information Primary Emergency Contact: Sammy Sarabia Mobile Relation: Spouse ADMISSION STATUS: Inpatient Insurance Provider: MEDICARE A AND B NEEDS PRIOR TO DISCHARGE Needs Prior to Discharge: To Be Determined;Accepting Facility;Patient/Family;Discharge Transportation;Other: See Comment (Updated PT/OT notes Monday; PMANDR evaluation; possible COVID-19 test, per [place] protocol) POTENTIAL TRANSITION PLANS Rehab Facility Based on clinical judgement, Care Management will address the following needs: Functional ADVANCE DIRECTIVES Current Advance Directive: None Associate Professor Attempted to Assist with AD Completion: Yes [...] discharge within 30 days: No PATIENT SCREEN 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 No social discharge barriers identified at this time. No behavioral/cognitive discharge barriers identified at this time. FREEDOM OF CHOICE EXPLAINED: [place] of Choice Given: Yes Level of Care Discussed: Inpatient Rehab Facility Financial Disclosure Provided: Yes Financial Disclosure Comments: CarePort list Provider List: Rehab Facility Provider list within the patient's requested geographic area shared with the patient/family: Yes within: Other: See Comment (50 miles) of zip code: [address] Quality and resource use metrics shared with [...] for review. A referral was sent to [facility] and [facility] as requested by pt.. Await response. 24 hour notice may be required for the arrangement of ambulance transport. An OOP, up front cost may be required for ambulance transport. Pt. was made aware of this and also aware that insurance may not cover the cost of ambulance (more content not included)...[facility]06-24-2022 NoteHNO ID: [id number] Author: Padmini Trevizo MD Service: Neurosurgery Author Type: Resident Type: Progress Notes Filed: 04/01/2022 7:04 AM Note Text: Neurosurgery Inpatient Progress Note Interval HPI: POD1 s/p L2-5 laminectomies w arachnoid bleb repaired with tachosil Objective: 03/31/22 2231 04/01/22 0201 04/01/22 0522 04/01/22 0523 BP: 149/70 130/70 140/70 Pulse: 81 98 95 98 Resp: 18 16 16 Temp: 36.4 ?C (97.5 ?F) 36.4 ?C (97.5 ?F) 36.3 ?C (97.3 ?F) TempSrc: Oral Oral Oral SpO2: 100% 99% 98% 97% Weight: EXAM: NAD, AAO x 3 CN grossly intact Strength: L: Delt 5/5, Bi 5/5, Tri 5/5, Monitoring Analyst 5/5, Intrins 5/5 R: Delt 5/5, Bi 5/5, Tri 5/5, Monitoring Analyst 5/5, Intrins 5/5 L: HF 5/5, KE [...] breast Padmini Trevizo MD Neurosurgery, PGY-4 Pager: [phone] April 01, 2022 Neurosurgery information coordinator: [phone] Please page [phone] on weekends and after 6pmF[facility]on [facility] NoteHNO ID: [id number] Author: Padmini Trevizo MD Service: Neurosurgery Author Type: Resident Type: Progress Notes Filed: 03/31/2022 8:11 PM Note Text: Neurosurgery POC Note Interval HPI: S/p L2-5 laminectomies w arachnoid bleb repaired with tachosil Objective: 03/30/22 1804 03/30/22 2046 03/31/22 0614 03/31/22 0958 BP: 139/77 153/99 146/77 (!) 140/47 Pulse: 69 76 70 64 Resp: 17 18 16 16 Temp: 36.3 ?C (97.3 ?F) 36.6 ?C (97.9 ?F) 36.5 ?C (97.7 ?F) 36.9 ?C (98.4 ?F) TempSrc: Oral Oral Oral Axillary SpO2: 96% 95% 98% 97% Weight: EXAM: NAD, AAO x 2 CN grossly intact Strength: L: Delt 5/5, Bi 5/5, Tri 5/5, Monitoring Analyst 5/5, Intrins 5/5 R: Delt 5/5, Bi 5/5, Tri 5/5, Monitoring Analyst 5/5, Intrins 5/5 L: HF 5/5, KE [...] Padmini Trevizo MD Neurosurgery, PGY-4 Pager # [phone] March 31, 2022 Please page [phone] after 6 PM and [facility] NoteHNO ID: [id number] Author: Nawaf Caballero APRN.AUTO PORTER Service: ? Author Type: Nurse Test Engineering Intern Type: Anesthesia Procedure Notes Filed: 03/31/2022 6:06 [...] March 31, 2022 TIME: 6:05 PM CSN: [id number] [facility]06-[facility] NoteHNO ID: [id number] Author: Nawaf Caballero APRN.AUTO PORTER Service: ? Author Type: Nurse Test Engineering Intern Type: Anesthesia Procedure Notes Filed: 03/31/2022 6:05 PM Note Text: ANESTHESIOLOGY PROCEDURE NOTE A-Line General Information Procedure Start Time/Medication Administration: 03/31/2022 4:40 PM Patient location during procedure: OR Timeout Performed Pre-procedure: timeout performed Indication: continuous blood pressure monitoring Staffing AUTO PORTER: Nawaf Caballero APRN.CRNA Preparation Sterility Preparation: hand [...] complications SIGNATURE: Nawaf Caballero APRN.CRNA PATIENT NAME: Seaed Sarabia DATE: March 31, 2022 TIME: 6:01 PM CSN: [id number] County Health Center06-23-2022 NoteHNO ID: [id number] Author: Ever Salcedo MD Service: ? 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 Author Type: Nurse Test Engineering Intern Type: Anesthesia Procedure Notes Filed: 03/31/2022 5:24 PM Note Text: ANESTHESIOLOGY PROCEDURE NOTE PIV General Information Procedure Start Time/Medication Administration: 03/31/2022 4:21 PM Patient Location: OR Staffing AUTO PORTER: Nawaf Caballero APRN.AUTO PORTER Preparation Sterility Preparation: hand hygiene performed prior to procedure, mask used, skin prep agent completely dried prior to procedure Site Prep: alcohol Procedure Details Indication: need for IV access Needle Size/Type: 18 gauge angiocath Orientation: Left Location: Wrist Imaging Guidance Used: No SIGNATURE: Nawaf Caballero APRN.CRNA PATIENT NAME: Saeed Sarabia DATE: March 31, 2022 TIME: 5:22 PM CSN: [id number] [facility] Center06-22-2022 NoteHNO ID: [id number] Author: Fannie Blandon PA-C Service: Neurosurgery Author Type: Physician Infant Nanny Type: Progress Notes Filed: 03/30/2022 12:04 PM Note Text: SERVICE DATE: 03/30/2022 SERVICE TIME: 12:03 PM NEURO SURGERY PROGRESS NOTE Account #: Data Unavailable Admission Date: 03/28/2022 Date of Evaluation: March 29, 2022 Time of Evaluation: 12:45 PM Attending: Dr. Juice Sears MD. Location: [place] [id number]/[id number] Please page -4p: Fannie Blandon PA-C [phone] Mon-Monp-6p: Courtney Deshpande CNP [phone] Mon-Mon- and weekends: [phone] or BLAYNE information coordinator Subjective INTERVAL HPI: reports no other concerns [...] assessed Muscle strength: UE BICEPS TRICEPS DELTS Monitoring Analyst R 5/5 5/5 5/5 5/5 L 5/5 [...] Central line needed Pendin (more content not included)...[facility]06-21-2022 Note HNO ID: [id number] Author: Fannie Blandon PA-C Service: Neurosurgery Author Type: Physician Infant Nanny Type: Progress Notes Filed: 03/29/2022 1:03 PM Note Text: SERVICE DATE: 03/29/2022 SERVICE TIME: 1:03 PM NEURO SURGERY PROGRESS NOTE Account #: Data Unavailable Admission Date: 03/28/2022 Date of Evaluation: March 29, 2022 Time of Evaluation: 12:45 PM Attending: Dr. Juice Sears MD. [address] Please page -4p: Fannie Blandon PA-C [phone] Mon-Mon-6p: Courtney Deshpande CNP [phone] Mon-Mon- and weekends: [phone] or BLAYNE information coordinator Subjective INTERVAL HPI: reports she still has [...] assessed Muscle strength: UE BICEPS TRICEPS DELTS Monitoring Analyst R 5/5 5/5 5/5 5/5 L 5/5 [...] Assessment AND Plan 8 (more content not included)...[facility]06-20-2022 NoteHNO ID: [id number] Author: Tamra Minor RPh Service: Pharmacy Author Type: Pharmacist Type: Plan of Care Filed: 03/28/2022 8:53 PM Note Text: PHARMACY MEDICATION REVIEW Patient Name: Saeed Sarabia : 1940 The following medications were updated within the BLOCKING MACHINE OPERATOR SECOND medication list: Medications ADDED to BLOCKING MACHINE OPERATOR SECOND medication list ? All below medications added Medications CHANGED on BLOCKING MACHINE OPERATOR SECOND medication list ? NA Medications REMOVED from BLOCKING MACHINE OPERATOR SECOND medication list ? NA Additional comments: patient transferred from O[facility] where some medications were held (apixaban, bumetanide, spironolactone), substituted (rosuvastatin -> atorvastatin AND metformin + glipizide -> Aspart 3 units w/ meals + Detemir 5 units w/ breakfast) The below information represents the best possible medication history: Yes Medication history completed by: Pharmacist: Tamra Minor RPh Source of history: Outside hospital records - Name:[facility] and Pharmacy records: [facility] [place] [facility] (via [facility]) Medication nonadherence identified: No barriers noted Reconciliation completed: Yes Completed by: Tamra Minor RPh All BLOCKING MACHINE OPERATOR SECOND medications addressed by LIP Patient interested in Bedside Delivery Services or using [facility] at discharge? Unable to assess [...] at bedtime. Facility-Administered Medications: None Tamra Minor [facility] 03/28/2022[facility]06-19-2022 Progress note Author Kieran Scott [facility] March 27, 2022 3:10pm Note Date/Time March 27, 2022 3:[address] [facility] [address] [place] [address] Hospitalist Progress Note Signed Patient: Saeed Sarabia MR#: [id number] : 1940 Acct:[id number] Age/Sex: 81 / F Adm Date: 2 Loc: 4N Room: 7F3118-9 Type : ADM INOo Attending Dr: Kieran [...] is still waiting to be transferred to [facility]. We still did not hear any open [...] Freq PRN Reason Stop Dose Admin Acetaminophen 650 [...] Patient is waiting to be transferred to [facility]. We do not have any neurosurgical coverage [...] plenty RBC. We will try to use [place] and repeat UA for today. Admission Assessment and Plan: Lumbar spinal stenosis/right foot drop Patient continues to have weakness in the right foot with numbness MRI lumbar spine from [facility] reviewed which showed L4-L5 disc desiccation, moderate diffuse disc bulge and ligamentum flavum hypertrophy and facet osteoarthropathy, severe central canal stenosis, moderate right and mild left foraminal stenosis, L5-S1 moderate to severe disc space narrowing with endplate sclerosis Patient has been accepted by neurosurgery at [facility] and is awaiting bed Family is upset that she does not have a bed available yet at [facility] and wants to go to [facility] if possible. Spoke to neurosurgery at [facility] who would like to see the patient on consult if accepted by medical service. Awaiting call from medical service. Chronic conditions: Atrial fibrillation-we will hold Eliquis at this point due to possible surgery Type 2 diabetes/hypertension?we will resume home medications CODE STATUS: Full code DVT prophylaxis: SCDs Documented By: Kieran Scott MD 03/27/22 1507 Signed By: <Electronically signed by Kieran Scott MD> 03/27/22 3870 [facility] Work Phone: 1(215) 760-992806-18-2022 Progress note Author Kieran Scott [facility] March 26, 2022 3:44pm Note Date/Time March 26, 2022 3:[address] [facility] [address] [place] [address] Hospitalist Progress Note Signed Patient: Saeed Sarabia MR#: [id number] : 1940 Acct:[id number] Age/Sex: 81 / F Adm Date: 2 Loc: 4N Room: 0C7218-9 Type : ADM INOo Attending Dr: Kieran [...] is still waiting to be transferred to [facility]. We still did not hear any open [...] Freq PRN Reason Stop Dose Admin Acetaminophen 650 [...] Patient is waiting to be transferred to [facility]. We do not have any neurosurgical coverage [...] [facility] We will continue with current medical therapy and plan as given below. Admission Assessment and Plan: Lumbar spinal stenosis/right foot drop Patient continues to have weakness in the right foot with numbness MRI lumbar spine from [facility] reviewed which showed L4-L5 disc desiccation, moderate diffuse disc bulge and ligamentum flavum hypertrophy and facet osteoarthropathy, severe central canal stenosis, moderate right and mild left foraminal stenosis, L5-S1 moderate to severe disc space narrowing with endplate sclerosis Patient has been accepted by neurosurgery at [facility] and is awaiting bed Family is upset that she does not have a bed available yet at [facility] and wants to go to [facility] if possible. Spoke to neurosurgery at [facility] who would like to see the patient on consult if accepted by medical service. Awaiting call from medical service. Chronic conditions: Atrial fibrillation-we will hold Eliquis at this point due to possible surgery Type 2 diabetes/hypertension?we will resume home medications CODE STATUS: Full code DVT prophylaxis: SCDs Documented By: Kieran Scott MD 03/26/22 152 Signed By: <Electronically signed by Kieran Scott MD> 03/26/22 1548 [facility] Work Phone: 1(246) 592-657206-17-2022 Progress note Author Rupert Anthony [facility] March 25, 2022 3:36pm Note Date/Time March 25, 2022 3:[address] [facility] [address] [place] [address] Hospitalist Progress Note Signed Patient: Saeed Sarabia MR#: [id number] : 1940 Acct:[id number] Age/Sex: 81 / F Adm Date: 2 Loc: Room: [address] [place] [address] Type : ADM INOo Attending Dr: Rupert [...] Freq PRN Reason Stop Dose Admin Acetaminophen 650 [...] Insuln.Pen SUBCUT 03/24/23 07:59 1 units TID.[facility] Administration Protocol Insulin Detemir 5 units 03/24/22 [...] Tizanidine 4 Mg Tablet PO 03/25/23 21:59 [facility] A&P - Hospitalist Assessment/Plan (1) Lumbar spinal stenosis: (2) Foot drop, right: Plan Lumbar spinal stenosis/right foot drop Patient continues to have weakness in the right foot with numbness MRI lumbar spine from [facility] reviewed which showed L4-L5 disc desiccation, moderate diffuse disc bulge and ligamentum flavum hypertrophy and facet osteoarthropathy, severe central canal stenosis, moderate right and mild left foraminal stenosis, L5-S1 moderate to severe disc space narrowing with endplate sclerosis Patient has been accepted by neurosurgery at [facility] and is awaiting bed Family is upset that she does not have a bed available yet at [facility] and wants to go to [facility] if possible. Spoke to neurosurgery at [facility] who would like to see the [...] <Electronically signed by Rupert Anthony MD> 03/25/22 1536 [facility] Work Phone: 1(112) 894-520006-17-2022 Consult note Author Yvrose Crocker [facility] March 25, 2022 10:12am Note Date/Time March 24, 2022 9:[address] [facility] [address] [place] [address] Neurology Consult Note Signed with Addenda Patient: Saeed Sarabia MR#: [id number] : 1940 Acct:[id number] Age/Sex: 81 / F Adm Date: 2 Loc: Room: [address] [place] [address] Type : ADM INOo Attending Dr: Rupert [...] does not have a bed assignment at [facility] today we can contact [facility] or [facility] for other options. Patient and state understanding and are agreeable. Addendum Documented By: JH Crocker 03/25/22 1012 Addendum Signed By: <Electronically signed by JH Crocker> 03/25/22 1012 HPI Consult Date: 03/24/22 Bartenders: BLAKE Green with Dr Astorga Reason for [...] MRI scan of her lumbar spine at [facility] recently which prompted the surgery. She [...] following angiography History of cardioversion 2011 (w/RODRIGUEZ), 2016 Hyperlipidemia Hypertension Mitral valve regurgitation Surgical History [...] compared to the left CEREBELLAR EXAM: * Vipuco-ky-tgkb and alternating movements are intact and normal in bilateral upper extremities * Szlj-pd-zgfm and alternating movements are intact and normal in the left lower extremity. 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 There is also evidence suggesting underlying chondrocalcinosis. No acute bony injury. Impression dictated by: Donny Wolf M.D.03/23/2022 8:02 PM Dictation Location: [place] [address] Assessment/Plan (1) Lumbar spinal stenosis: Code(s): M48.061 [...] of her lumbar spinein February at the [facility] which is available for review. She was exceptedat the [facility] and we are awaiting a bed. 1. MRI of the lumbar spine from [facility] reviewed. Awaiting a bed assignment at [facility]. I will defer further work-up to [...] No other recommendations. Documented By: JH Latif 0972 Signed By: <Electronically signed by JH Crocker> 03/24/22 1117 <Electronically signed by Colby Astorga DO> 03/24/22 4980 [facility] Work Phone: 1(561) 277-374506-16-2022 Progress note Author Rupert Anthony [facility] March 24, 2022 5:12pm Note Date/Time March 24, 2022 5:[address] [facility] [address] [place] [address] Progress Note Signed Patient: Saeed Sarabia MR#: [id number] : 1940 Acct:[id number] Age/Sex: 81 / F Adm Date: 2 Loc: Room: 0K0291-6 Type : ADM INOo Attending Dr: Rupert Anthony MD Copies to: ~ Date of Service: 03/24/2022 Progress Narrative Note PROGRESS NOTE Progress Note: Patient admitted last night for right foot drop. Patient has been accepted to [facility] by neurosurgery and is awaiting bed. Patient denies any pain in her right leg at this time. Continue current management. Neurology and neurosurgery has been consulted. Documented By: Rupert Anthony MD 03/24/221710 Signed By: <Electronically signed by Rupert Anthony MD> 03/24/221711 [facility] Work Phone: 1(835) 858-757506-16-2022 History and physical note Author Perlita Gautam [facility] March 24, 2022 4:44am Note Date/Time March 24, 2022 4:24 am [facility] [address] [place] [address] Hospitalist H&P Signed Patient: Saeed Sarabia MR#: [id number] : 1940 Acct:[id number] Age/Sex: 81 / F Adm Date: 2 Loc: Room: [address] [place] [address] Type : ADM IN Attending Dr: Perlita Braxton MD Copies to: MD Sarai Martin APRN Lisa J Aichholz, RONNIE-C~ HPI DATE OF EXAMINATION: 03/24/22 CHIEF COMPLAINT: [...] negative unless noted in HPI or below PMFSH Vaccinated for COVID-19?: Yes Medical History Arthritis Atrial fibrillation CAD (coronary artery disease) Diabetes GERD (gastroesophageal reflux disease) Hematoma following angiography History of cardioversion 2011 (w/RODRIGUEZ), 2016 Hyperlipidemia Hypertension Mitral valve regurgitation Surgical History [...] 19:25 Uncorrected WBC Count 8.6 x10E3/uL (4.5-11.0) 03/23/22 19:25 RBC 4.77 x10E6/uL (3.60-5.00) 03/23/22 19:25 Hgb 14.3 g/dL (11.8-15.4) 03/23/22 19:25 Hct 43.4 % (34.0-46.4) 03/23/22 19:25 MCV 91.0 fl (80-100) 03/23/22 19:25 MCH 29.9 pg (24.7-34.3) 03/23/22 19:25 MCHC 32.9 g/dL (32.0-35.0) 03/23/22 19: RDW 13.8 % (11.9-15.3) 03/23/22:25 Plt Count 295 x10E3/uL (150-450) 03/23/22: MPV 7.8 fl (6.3-10.7) 03/23/22 19:25 Neut % (Auto) 49.2 % (.) 03/23/22: Lymph % (Auto) 38.7 % (.) 03/23/22: Webb % (Auto) 9.2 % (.) 03/23/22: Eos % (Auto) 2.3 % (.) 03/23/22: Baso % (Auto) 0.6 % (.) 03/23/22: Neut # (Auto) 4.2 x10E3/uL (1.8-7.7) 03/23/22: Lymph # (Auto) 3.3 x10E3/uL (1.00-4.8) 03/23/22: Webb # (Auto) 0.8 x10E3/uL (0.0-0.8) 03/23/22: Eos # (Auto) 0.2 x10E3/uL (0.0-0.45) 03/23/22: Baso # (Auto) 0.1 x10E3/uL (0.0-0.2) 03/23/22: Nucleated RBC % (auto) 0.0 % (0-0.5) 03/23/22: PT 15.7 Seconds (9.0-12.9) H 03/23/22 19:25 INR 1.4 03/23/22:25 APTT 32.2 Seconds (25.1-36.5) 03/23/22 19:25 PHA Creatinine Clear 46.80 03/23/22 19:25 Sodium 141 mmol/L (136-146) 03/23/22 19:25 Potassium 4.4 mmol/L (3.5-5.1) 03/23/22:25 Chloride 103 mmol/L (95-114) 03/23/22 19:25 Carbon [...] 03/23/22 19:25 Total Protein 6.8 gm/dL (6.1-7.9) 03/23/22 19:25 Albumin 3.6 gm/dL (3.2-5.5) 03/23/22 19:25 Globulin 3.2 gm/dL 03/23/22 19:25 Albumin/Globulin Ratio 1.1 03/23/22 19:25 Urine Color Yellow (Yellow) 03/23/22 19:45 Urine Appearance Clear (Clear) 03/23/22 19:45 Urine pH 7.5 (5.0-9.0) 03/23/22 19:45 Ur Specific [place] 1.017 (1.001-1.030) 03/23/22 19:45 Urine Protein Negative [...] ?ER physician spoke with Dr. Shirley at [facility] neurosurgery who accepted patient and is pending bed availability. According to ER physician conversationwith Dr. Cruz there was no concerns for Julian monsalve at this point. ?MRI from [facility] pending availability, showing L4-L5 severe stenosis [...] the plan of care and confirmed the resident's/international bank manager/medical student's dictation/written note. Documented By: Sarai Singletary APRN 03/24/229 Signed By: <Electronically signed by OMID Singletary> 03/24/22 0438 <Electronically signed by Perlita Braxton MD> 03/24/22443 [facility] Work Phone: [phone] Evaluation note* Encounter Date Diagnosis Assessment Notes Treatment Notes Treatment Clinical Notes Mar, Right foot drop (ICD-10 - M21.371) Patient was referred to the emergency room for emergency evaluation in anticipation of probably being transferred to a tertiary center. 15 Mar, 2022 Spinal stenosis, lumbar region with neurogenic claudication (ICD-10 - M48.062) [facility] Other evaluation noteNo assessment information available [facility] Work Phone: Evaluation note* Diagnosis Onset Date Resolution Status Foot drop, right acute Lumbar spinal stenosis acute [facility] Work Phone: Evaluation note* Diagnosis Onset Date Resolution Status Foot drop, right acute Lumbar spinal stenosis acute Atrial fibrillation acute Diabetes acute Foot drop, right acute Hyperlipidemia acute Hypertension acute Impaired mobility and activities of daily living acute S/P lumbar laminectomy acute [facility] Work Phone: Evaluation note* Diagnosis Spinal stenosis of lumbar region, unspecified whether neurogenic claudication present- Primary [facility] Spinal stenosis of lumbar region, unspecified whether neurogenic claudication present- Primary Right leg weakness Other musculoskeletal symptoms referable to limbs [facility] Acquired talipes equinovalgus of right foot- Primary Foot drop, right foot [facility] Diagnosis Foot drop, right foot- Primary [facility] Diagnosis Encounter for subsequent annual wellness visit (AWV) in Medicare patient- Primary Benign essential HTN (CMS/HCC) Chronic atrial fibrillation (HCC) (CMS/HCC) Atrial fibrillation Type 2 diabetes mellitus without complication, without long-term current use of insulin (CMS/HCC) Mixed hyperlipidemia (CMS/HCC) Mixed hyperlipidemia Abnormal thyroid blood test Type 2 diabetes mellitus without complication, without long-term current use of insulin (CMS/HCC) documented in this encounter [facility]* Diagnosis Encounter for subsequent annual wellness visit (AWV) in Medicare patient- Primary Benign essential HTN (CMS/HCC) Chronic atrial fibrillation (HCC) (CMS/HCC) Atrial fibrillation Type 2 diabetes mellitus without complication, without long-term current use of insulin (CMS/HCC) Mixed hyperlipidemia (CMS/HCC) Mixed hyperlipidemia Abnormal thyroid blood test Type 2 diabetes mellitus without complications (CMS/HCC) documented in this encounter [facility] HealthcareEvaluation note* Diagnosis Encounter for subsequent annual wellness visit (AWV) in Medicare patient- Primary Benign essential HTN (CMS/HCC) Chronic atrial fibrillation (HCC) (CMS/HCC) Atrial fibrillation Type 2 diabetes mellitus without complication, without long-term current use of insulin (CMS/HCC) Mixed hyperlipidemia (CMS/HCC) Mixed hyperlipidemia Abnormal thyroid blood test Type 2 diabetes mellitus without complication, without long-term current use of insulin (CMS/HCC)- Primary Other thrombophilia (CMS/HCC) Type 2 diabetes mellitus with diabetic neuropathy, unspecified (CMS/HCC) Peripheral vascular disease, unspecified (CMS/HCC) Peripheral vascular disease, unspecified Unspecified diastolic (congestive) heart failure (CMS/HCC) Chronic atrial fibrillation (HCC) (CMS/HCC) Atrial fibrillation Benign essential HTN (CMS/HCC) Coronary arteriosclerosis (CMS/HCC) Coronary atherosclerosis of unspecified type of vessel, [place] or graft Type 2 diabetes mellitus without complications (CMS/HCC) [facility] - Reported* Type Description Date Medical History hypertension Medical History diabetes mallitus Medical History hypercholesterolemia Medical History mitral valve regurgitation Medical History Heart Failure/Diastolic Surgical History blood clot Hospitalization History See Above [facility] Other Chief Complaint and Reason for Visit [...] daily living S/P lumbar laminectomy Advance Directives Advance Directive Response Recorded Date/ Time Advance Directives No February 25 11:14am Documents on File Type Date Recorded 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 Advance Directive(s) 03/29/2022 8:42 PM Latest Code Status on File Code Status Date Activated Date Inactivated Comments Full Code 03/28/2022 5:55 PM 04/07/2022 4:54 PM Full Code Order Discussed With: Patient Family History Relationship Condition Age at Onset Recorded Date/T [...] , DO Emergency Provider Active Kirstin J [facility] Primary Care Provider Active Perlita Braxton MD Admit Provider, Attending Kamari mooney Active Team Status: Active Member Role Status Dates Kirstin J [facility] Primary Care Provider Active Team Status: Inactive Member Role Status Dates Howard Rivera , DO Emergency Provider Active Kirstin J [facility] Primary Care Provider Active Perlita Braxton MD Admit Provider Active Colby Astorga , Other Provider Active Rupert Anthony MD Attending Provider Active Team Status: Inactive Member Role Status Dates Kirstin J [facility] Primary Care Provider Active Kingston Gao MD Admit Provider, Attending Provider A ctive Dinah Dowling , RN Other Provider Active Rachna Winston , RN Other Provider Active Giselle Wahl , RN Other Provider Active Gloria Moise , RN Other Provider Active Lucia Marc , ELFEGO Other Provider Active Courtney Campbell , RN Other Provider Active Cindy Buck , ELFEGO Other Provider Active Cyndee Aguirre MD Other Provider Active Shadi Chahal MD Other Provider Active Kirstin Lorenz APRN Other Provider Active Shelby Landrum , Other Provider Active Kieran Scott MD Other [...] MD Other Provider Active Debbie Avalos , RONNIE-C Other Provider Active Saulo Dukes MD Other [...] Active Kirstin Miller Primary Care Provider Active Board Catcher Relationship Specialty Start Date End Date Mike Steiner MD PCP - General Family Medicine 08/09/23 Kirstin Miller NP [address] [place] [address] Nurse Practitioner Family Medicine 08/09/23 Board Catcher Relationship Specialty Start Date End Date Mike Steiner MD PCP - General Family Medicine 08/09/23 Kirstin Miller NP [address] [place] [address] Nurse Practitioner Family Medicine 08/09/23 Board Catcher Relationship Specialty Start Date End Date Mike Steiner MD [address] [place] [address] PCP - General Family Medicine 08/20/24 Kirstin Miller NP [address] [place] [phone] Nurse Practitioner Family Medicine 08/09/23 Board Catcher Relationship Specialty Start Date End Date Mike Steiner MD [address] [place] [phone] PCP - General Family Medicine 08/20/24 Kirstin Miller NP [address] [place] [phone] Nurse Practitioner Family Medicine 08/09/23 Board Catcher Relationship Specialty Start Date End Date Mike Steiner MD [address] [place] [phone] PCP - General Family Medicine 08/20/24 Kirstin Miller NP [address] [place] [phone] Nurse Practitioner Family Medicine 08/09/23 Goals (unrecognized section and content) Goals may be documented in a n alternate sectionGoals may be documented in an alternate sectionGoals may be documented in an alternate sectionNo Information REASON FOR VISIT (unrecogniz ed section and content) Reason Comments Other home health orders r equested Reason Comments Forms [facility] ter Reason Comments Forms Reason Comments Other Counts Include [facility] At [facility] Plan of Ca re 04/17/22 - 06/15/22 Reason Comments General [facility] [place] Comments Post-Op Visit Reason Comments Forms Physician Orders ([place]) - [facility] Reason Comments Forms Other Discharge Physician Orders Reason Comments Other Physical Therapy Rec ertification Note Reason Comments Received Outside Medical Records [facility] Reason Comments Med Refill INFORMATION SOURCE (unrecogn ized section and content) DATE CREATED AUTHOR 04/06/2022 [facility] DATE CREATED AUTHOR AUTHOR'S ORGANIZ ATION 09/08/2022 [facility] DATE CREATED AUTHOR AUTHOR'S ORGANIZ ATION 09/15/2022 [facility] DATE CREATED AUTHOR AUTHOR'S ORGANIZ ATION 11/12/2022 [facility] DATE CREATED AUTHOR AUTHOR'S ORGANIZ ATION 02/20/2024 [facility] DATE CREATED AUTHOR AUTHOR'S ORGANIZ ATION 08/22/2024 [facility] EPIC Source Comments (unrecognize d section and content) In the event this informatio n is protected by the Federal Confidentiality of Alcohol and Drug Abuse Patient Records regulations: The Federal rules restrict any use of the information to criminally investigate or prosecute any alcohol or drug abuse patient.[facility] the event this information is protected by the Federal Confidentiality of Alcohol and Drug Abuse Patient Records regulations: The Federal rules restrict any use of the information to criminally investigate or prosecute any alcohol or drug abuse patient.[facility] the event this information is protected by the Federal Confidentiality of Alcohol and Drug Abuse Patient Records regulations: The Federal rules restrict any use of the information to criminally investigate or prosecute any alcohol or drug abuse patient.[facility] the event this information is protected by the Federal Confidentiality of Alcohol and Drug Abuse Patient Records regulations: The Federal rules restrict any use of the information to criminally investigate or prosecute any alcohol or drug abuse patient.[facility] the event this information is protected by the Federal Confidentiality of Alcohol and Drug Abuse Patient Records regulations: The Federal rules restrict any use of the information to criminally investigate or prosecute any alcohol or drug abuse patient.[facility] the event this information is protected by the Federal Confidentiality of Alcohol and Drug Abuse Patient Records regulations: The Federal rules restrict any use of the information to criminally investigate or prosecute any alcohol or drug abuse patient.[facility] the event this information is protected by the Federal Confidentiality of Alcohol and Drug Abuse Patient Records regulations: The Federal rules restrict any use of the information to criminally investigate or prosecute any alcohol or drug abuse patient.[facility] the event this information is protected by the Federal Confidentiality of Alcohol and Drug Abuse Patient Records regulations: The Federal rules restrict any use of the information to criminally investigate or prosecute any alcohol or drug abuse patient.[facility] the event this information is protected by the Federal Confidentiality of Alcohol and Drug Abuse Patient Records regulations: The Federal rules restrict any use of the information to criminally investigate or prosecute any alcohol or drug abuse patient.[facility] the event this information is protected by the Federal Confidentiality of Alcohol and Drug Abuse Patient Records regulations: The Federal rules restrict any use of the information to criminally investigate or prosecute any alcohol or drug abuse patient.[facility] the event this information is protected by the Federal Confidentiality of Alcohol and Drug Abuse Patient Records regulations: The Federal rules restrict any use of the information to criminally investigate or prosecute any alcohol or drug abuse patient.[facility] Hospital[facility] the event this information is protected by the Federal Confidentiality of Alcohol and Drug Abuse Patient Records regulations: The Federal rules restrict any use of the information to criminally investigate or prosecute any alcohol or drug abuse patient.[facility] FOR RECORDS PERTAINING TO PATIENTS WHO [...] BE BASED ON THE PRIMARY CLINICAL RECORDS. [facility] [employer] [facility]. provides no warranty or guarantee of the accuracy or completeness of information in this document.
[2024-08-29 10:18] LABS: Anion Gap 15.8; BUN Creatinine Ratio 19.6; Calcium 9.8 mg/dL (8.5-10.1); Carbon Dioxide 26.4 mmol/L (21.0-32.0); Chloride 103 mmol/L (98-107); Estimated GFR (African America 59 (>=60 mL/min/1.73m^2); Estimated GFR (Non-African Ame 49 (>=60 mL/min/1.73m^2); Glucose 266 mg/dL (74-106); Potassium 4.2 mmol/L (3.5-5.1); Sodium 141 mmol/L (136-145)
[2024-08-29 11:37] LABS: Bilirubin Urine NEGATIVE (NEGATIVE); Blood Urine NEGATIVE (NEGATIVE); Clarity Urine CLEAR (CLEAR); Color Urine LT. YELLOW (YELLOW); Glucose Urine UA NEGATIVE (NEGATIVE); Ketones Urine NEGATIVE (NEGATIVE); Leukocyte Esterase Urine TRACE (NEGATIVE); Nitrite Urine NEGATIVE (NEGATIVE); Protein Urine NEGATIVE (NEG/TRACE); Urine Microscopic Indicated YES; Urobilinogen Urine 0.2 EU/dL (0.2-1.0); pH Urine 5.5 (5.0-9.0)
[2024-08-29 12:05] LABS: Bacteria Urine TRACE #/HPF (NONE SEEN); Mucus Urine NONE SEEN (NONE SEEN); RBC Urine NONE SEEN #/HPF (0-2)
[2024-08-29 12:06] LABS: Cast Seen? SEEN #/LPF (NONE SEEN); Crystals Seen? None Seen #/HPF (None Seen); Hyaline Casts Urine RARE; Squamous Epithelial Cell Urine FEW #/LPF (NONE/RARE)
[2024-09-02 12:09] LABS: Osmolality, Urine 561 mOsmol/kg (.)
== END 2024-08-29 09:27 | disposition home or self-care (01) ==
LOC: LAB 09:27
PROVIDERS: PCP Nurse Practitioner; Visit Provider Nurse Practitioner
DX: E87.0 Hyperosmolality and hypernatremia (principal)
CPT/HCPCS: 36415; 80048; 81001; 83930; 83935

== ENCOUNTER 2024-09-17 10:59 | Emergency (ER) | payer MEDICARE, SELFPAY ==
[2024-09-17] VITALS (38 sets, daily range): BP systolic 125–182; BP diastolic 62–81; PULSE 73–117; TEMP 36.9; O2SAT 80–99; BMI 25.8
[2024-09-17 11:12] LABS: Glucometer 149 mg/dL (74-106)
--- NOTE | 2024-09-17 11:26 | CT_ITS ---
The [address] [address] Patient Name: SAEED JOHNSON MRN: [id number] date: 1940 Sex: F Assigned Patient Location: ER Current Patient Location: ER Accession/Order Number: [id number] Exam Date: 09/17/2024 11:58 Report Date: 09/17/2024 12:57 At the request of: EDMUNDO FOX Procedure: CT head/brain wo con EXAM: CT head/brain wo con HISTORY: AMS COMPARISON: None. TECHNIQUE: CT of the brain was obtained without contrast. Axial, coronal and sagittal reconstructions were obtained. FINDINGS: There is multifocal calcification of the vessels at the level of the skull base. Extensive periventricular white matter hypoattenuation is seen suggestive of chronic small vessel ischemic disease. 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 There is no CT evidence of acute intracranial hemorrhage mass effect or midline shift. The lenses have been extracted. There is cerumen in the right ear. CT/CT head/brain wo con IMPRESSION: 1. There is no CT evidence of acute intracranial hemorrhage, mass effect or midline shift. 2. Chronic changes related to small vessel ischemic disease and old infarctions as described above. If there is a clinical concern on acute symptoms, need for further evaluation with brain MRI can be determined clinically. Electronically authenticated by: LUZ MARINA RODRÍGUEZ Date: 09/17/2024 12:57
--- NOTE | 2024-09-17 11:26 | ECG_ITS ---
The [facility] Test Date: 2024-09-17 Pat Name: SAEED JOHNSON Department: Room: - Gender: Female Ward Service Supervisor: : 1940 Requested By: GALINDO CASAS Order Number: [id number] Reading MD: CRISTIANO HERRERA Measurements Intervals [place] Rate: 82 P: -30 MD: 138 QRS: 15 QRSD: 130 T: 102 QT: 408 QTc: 447 Interpretive Statements 1100 Sinus rhythm 2550 Left bundle branch block 9150 abnormal ECG Compared to ECG 12/16/2019 23:50:15 Left bundle-branch block now present T-wave abnormality no longer present Electronically Signed On 09-19-2024 8:02:16 EST by CRISTIANO HERRERA
--- NOTE | 2024-09-17 11:26 | XR_ITS ---
The [address] [address] Patient Name: SAEED JOHNSON MRN: [id number] date: 1940 Sex: F Assigned Patient Location: ER Current Patient Location: ER Accession/Order Number: [id number] Exam Date: 09/17/2024 12:17 Report Date: 09/17/2024 12:32 At the request of: EDMUNDO FOX Procedure: XR chest 2V EXAM: Chest x-ray HISTORY: AMS . COMPARISON: None. TECHNIQUE: Frontal and lateral chest FINDINGS: Heart and vascularity are unremarkable. Lungs are free of focal infiltrates. Atherosclerotic changes of the thoracic aorta are noted. Spondylosis of the spine is noted. XR/XR chest 2V IMPRESSION: No acute heart or lung disease identified. Electronically authenticated by: SHEILA PEDRAZA Date: 09/17/2024 12:32
--- NOTE | 2024-09-17 11:28 | ED_ITS ---
HPI HPI - General Adult General Chief complaint: Altered Mental Status Stated complaint: SHARP PAINS IN STOMACH UTI Time Seen by Provider: 09/17/24 11:21 Source: patient Mode of arrival: Wheelchair Limitations: altered mental status History of Present Illness HPI narrative: Patient presenting to the emergency department for evaluation of overall not feeling well. Patient presenting with her , he states that for the last week or 2 she has been treated for UTI. He states over the last 3 to 4 days she has been slowly progressively neurologically declining. States that she does not want to do her daily activities, he is not getting up in the mornings, drinking her coffee, does not seem to want to get up however breakfast, he states whenever he talks to her, asks her questions and takes a very long time to answer them, sometimes she will not answer him at all. She just blankly stare at him. He states has been getting worse over the last 3 to 4 days. He states this morning she started complaining of abdominal pain, she states it was in the lower abdomen, was this morning, the entire lower abdomen, left, right, mid line to the lower abdomen. She denies any urinary symptoms right now. Is not having any chest pain, shortness of breath, blurry vision, double vision. He states that she is not slurring her speech, did not have facial droop or weakness. She is being slowly declining over the last 4 days. No other at this time Related Data Home Medications ?Medication ?Instructions ?Recorded ?Confirmed apixaban 5 mg tablet (Eliquis) 5 mg PO BID 09/17/24 09/17/24 ezetimibe 10 mg tablet 10 mg PO DAILY 09/17/24 09/17/24 glipizide 5 mg tablet 5 mg PO BID 09/17/24 09/17/24 lisinopril 20 mg tablet 20 mg PO DAILY 09/17/24 09/17/24 metformin 1,000 mg tablet 1,000 mg PO BID 09/17/24 09/17/24 metoprolol succinate 100 mg 100 mg PO DAILY 09/17/24 09/17/24 tablet,extended release 24 hr rosuvastatin 5 mg tablet 5 mg PO BEDTIME 09/17/24 09/17/24 spironolactone 25 mg tablet 12.5 mg PO DAILY 09/17/24 09/17/24 Allergies Allergy/AdvReac Type Severity Reaction Status Date / Time No Known Drug Allergies Allergy Verified 09/17/24 11:18 Opioid HPI Opioid Management Most Recent Opioid Data: Last Pain Scale 0 09/17/24 11:29 09/17/24 Last ED Pain Assessment 09/17/24 11:29 Review of Systems ROS Narrative Negative unless otherwise stated in the HPI Exam Narrative Exam Narrative: General: NAD, AAOx3, no distress Neck: Supple, no LAD, nonmeningeal Respiratory: respiratory effort normal, speaks in full sentences, no tripod position, no accessory muscle use. Lungs clear to auscultation without rhonchi, wheezes, rales Cardiac: Regular rate and rhythm, no edema, regular s1/s2, no m/g/r Abdomen: Soft, nondistended, tenderness to the left lower quadrant, right lower quadrant, suprapubic region. No evidence of fluid wave. No pulsatile masses on exam, rebound tenderness, Spear sign or pain over [place]bur[place]'s point. Neuro: Speech is clear and appropriate. Normal level of consciousness. Gait and coordination are normal. 5/5 strength in all extremities, NIH stroke scale of 0, no focal deficits, slow to answer questions, sometimes will not answer questions or follow commands, appears confused at times but is alert and oriented x 3 Constitutional Vital Signs, click to edit/add: Last Vital Signs Temp 98.4 F 09/17/24 11:07 Pulse 89 09/17/24 11:07 Resp 20 09/17/24 11:07 BP 182/81 H 09/17/24 11:07 Pulse Ox 95 09/17/24 11:30 O2 Del Method Room Air 09/17/24 11:30 Course Vital Signs Vital signs: Vital Signs Temperature 98.4 F 09/17/24 11:07 Pulse Rate 89 09/17/24 11:07 Respiratory Rate 20 09/17/24 11:07 Blood Pressure 182/81 H 09/17/24 11:07 Pulse Oximetry 97 09/17/24 11:07 Oxygen Delivery Method Room Air 09/17/24 11:07 Temperature 98.4 F 09/17/24 11:07 Pulse Rate 89 09/17/24 11:07 Respiratory Rate 20 09/17/24 11:07 Blood Pressure 182/81 H 09/17/24 11:07 Pulse Oximetry 95 09/17/24 11:30 Oxygen Delivery Method Room Air 09/17/24 11:30 Medical Decision Making MDM Narrative Medical decision making narrative: MDM Patient with history as above presented with abdominal pain, mental status changes. History obtained from patient, . Patient was nontoxic, stable. Ambulatory. Exam as above. EKG reviewed. Labs reviewed. Independently reviewed imaging. Reviewed external records. Differential diagnosis considered. Overall presentation is consistent with mental status changes, acute for chronic cholecystitis [address] Barrett, he states he is not on-call, who does not see patient as a patient. States that the patient was going to be admitted without a surgical consult would be fine, but call list is only for outpatient follow- ups. 14[facility] notified for transfer at this time [address] Alfonso, accepted transfer at this time. Transfer center has discussed with general surgery who wanted sent ER to ER. Lab Data Labs: Lab Results 09/17/24 09/17/24 09/17/24 Range/Units 11:10 11:20 11:52 WBC 7.9 (4.0-11.0) 10^3/uL RBC 4.50 (4.20-5.40) 10^6/uL Hgb 13.6 (12.0-16.0) g/dL Hct 42.7 (36.0-48.0) % MCV 94.9 (81.0-99.0) fL MCH 30.2 (26.7-34.0) pg MCHC 31.9 (29.9-35.2) g/dL RDW 13.0 (11.0-15.0) % Plt Count 305 (150-450) 10^3/uL MPV 9.8 (9.5-13.5) fL Neut % (Auto) 63.4 (43.0-75.0) % Lymph % (Auto) 28.8 (20.5-60.0) % [place] % (Auto) 6.8 (1.7-12.0) % Eos % (Auto) 0.5 L (0.9-7.0) % Baso % (Auto) 0.4 (0.2-2.0) % Neut # (Auto) 5.0 (1.4-6.5) 10^3/uL Lymph # (Auto) 2.3 (1.2-3.8) 10^3/uL [place] # (Auto) 0.5 (0.3-0.8) 10^3/uL Eos # (Auto) 0.0 (0.0-0.7) 10^3/uL Baso # (Auto) 0.0 (0.0-0.1) 10^3/uL Abs Immat Gran (auto) 0.01 (0.00-0.03) 10^3/uL Imm/Tot Granulo (auto) 0.1 (0.0-0.5) % PT 11.2 (9.0-11.6) sec INR 1.06 Sodium 135 L (136-145) mmol/L Potassium 4.4 (3.5-5.1) mmol/L Chloride 100 (98-107) mmol/L Carbon Dioxide 27.7 (21.0-32.0) mmol/L Anion Gap 11.7 BUN 23.0 H (7.0-18.0) mg/dL Creatinine 1.03 H (0.55-1.02) mg/dL Est GFR ( Amer) >60 (>=60 mL/min/1.73m^2) Est GFR (Non-Af Amer) 51 L (>=60 mL/min/1.73m^2) BUN/Creatinine Ratio 22.3 Glucose 213 H (74-106) mg/dL Calcium 9.9 (8.5-10.1) mg/dL Total Bilirubin 0.6 (0.2-1.0) mg/dL AST 16 (15-37) U/L ALT 20 (14-59) U/L Alkaline Phosphatase 54 (46-116) U/L Troponin I High Sens 5.6 (4.0-51.3) pg/mL Total Protein 7.1 (6.4-8.2) g/dL Albumin 3.5 (3.4-5.0) g/dL Globulin 3.6 g/dL Albumin/Globulin Ratio 1.0 Lipase 44.0 (16.0-77.0) U/L TSH 0.041 L (0.358-3.740) uIU/mL Urine Color Lt. yellow (YELLOW) Urine Clarity Clear (CLEAR) Urine pH 5.0 (5.0-9.0) Ur Specific [place] 1.020 (1.005-1.025) Urine Protein Negative (NEG/TRACE) mg/dL Urine Glucose (UA) Negative (NEGATIVE) mg/dL Urine Ketones 15 A (NEGATIVE) mg/dL Urine Occult Blood Negative (NEGATIVE) Urine Nitrite Negative (NEGATIVE) Urine Bilirubin Negative (NEGATIVE) Urine Urobilinogen 0.2 (0.2-1.0) EU/dL Ur Leukocyte Esterase Trace A (NEGATIVE) Urine RBC None seen (0-2) #/HPF Urine WBC 0-2 A (NONE SEEN) #/HPF Ur Squamous Epith Cells Few A (NONE/RARE) #/LPF Urine Bacteria None seen (NONE SEEN) #/HPF Urine Mucus None seen (NONE SEEN) Ur Culture Indicated? No POC Glucose 149 H (74-106) mg/dL Discharge Plan Discharge Chief Complaint: Altered Mental Status Clinical Impression: Altered mental status, Cholecystitis Patient Disposition: [facility] Time of Disposition Decision: 15:32 Discharge Location: [facility] Med Discharge location: ED, Dr. Alfonso Condition: Good Prescriptions / Home Meds: No Action Eliquis 5 mg tablet 5 mg PO BID ezetimibe 10 mg tablet 10 mg PO DAILY glipizide 5 mg tablet 5 mg PO BID lisinopril 20 mg tablet 20 mg PO DAILY metformin 1,000 mg tablet 1,000 mg PO BID metoprolol succinate 100 mg tablet extended release 24 hr 100 mg PO DAILY rosuvastatin 5 mg tablet 5 mg PO BEDTIME spironolactone 25 mg tablet 12.5 mg PO DAILY Print Language: Tamazight Referrals: Kirstin Miller NP [Primary Care Provider] - 1 week
--- NOTE | 2024-09-17 11:28 | CT_ITS ---
[address] [address] Patient Name: SAEED JOHNSON MRN: [id number] date: 1940 Sex: F Assigned Patient Location: ER Current Patient Location: Accession/Order Number: [id number] Exam Date: 09/17/2024 11:58 Report Date: 09/17/2024 13:59 At the request of: EDMUNDO FOX Procedure: CT abdomen pelvis w con EXAMINATION: CT abdomen pelvis w con HISTORY: abdominal pain COMPARISON: No relevant comparison available. TECHNIQUE: Axial, Coronal, and Sagittal images were obtained without and/or with IV contrast as indicated by examination type. Dose reduction techniques were achieved by using automated exposure control and/or adjustment of mA and/or kV according to patient size and/or use of iterative reconstruction technique. FINDINGS: LUNG BASES: No visible pulmonary or pleural disease. LIVER: No enlargement, atrophy, suspicious density, or significant focal lesion. BILIARY: The gallbladder is filled with stones and demonstrates abnormal wall thickening, 4 mm. No appreciable stones within the duct or abnormal duct dilation. PANCREAS: No lesion, fluid collection, or abnormal duct dilatation. SPLEEN: No enlargement or focal lesion. ADRENALS: No mass or enlargement. KIDNEYS: A few small nonobstructing stones within kidneys bilaterally. Mild cortical thinning. BOWEL/MESENTERY: No visible mass, obstruction, or bowel wall thickening. AORTA/VASCULAR: Marked atherosclerotic disease of distal aorta. No aneurysm. RETROPERITONEUM: No mass or adenopathy. LYMPH NODES: No adenopathy. URINARY BLADDER: No visible focal wall thickening, lesion, or calculus. PELVIC ORGANS: Abnormal thickened endometrium, 19 mm. ABDOMINAL WALL: No mass or hernia. BONES: Marked degenerative changes of lumbar spine. OTHER: Negative. CT/CT abdomen pelvis w con IMPRESSION: 1. Cholelithiasis and mild acute versus chronic cholecystitis. 2. Nonobstructing bilateral nephrolithiasis. 3. Marked atherosclerotic disease of distal aorta. 4. Abnormally thickened endometrium, 19 mm; hyperplasia versus mass.. Normal uterine contour; no appreciable mass. Electronically authenticated by: PAULA JEWELL Date: 09/17/2024 13:59
[2024-09-17 11:41] LABS: Basophils Percent Auto 0.4 % (0.2-2.0); Eosinophils Percent Auto 0.5 % (0.9-7.0); Hematocrit 42.7 % (36.0-48.0); Hemoglobin 13.6 g/dL (12.0-16.0); Immature Granulocytes Abs Auto 0.01 10^3/uL (0.00-0.03); Immature Granulocytes Pct Auto 0.1 % (0.0-0.5); Lymphocytes Absolute Auto 2.3 10^3/uL (1.2-3.8); Lymphocytes Percent Auto 28.8 % (20.5-60.0); Mean Corpuscular HGB Conc 31.9 g/dL (29.9-35.2); Mean Corpuscular Hemoglobin 30.2 pg (26.7-34.0); Mean Corpuscular Volume 94.9 fL (81.0-99.0); Mean Platelet Volume 9.8 fL (9.5-13.5); Monocytes Absolute Auto 0.5 10^3/uL (0.3-0.8); Monocytes Percent Auto 6.8 % (1.7-12.0); Neutrophils Percent Auto 63.4 % (43.0-75.0); Platelet Count 305 10^3/uL (150-450); White Blood Count 7.9 10^3/uL (4.0-11.0)
[2024-09-17 11:54] LABS: Alanine Aminotransferase 20 U/L (14-59); Albumin Level 3.5 g/dL (3.4-5.0); Alkaline Phosphatase 54 U/L (46-116); Anion Gap 11.7; Aspartate Amino Transferase 16 U/L (15-37); BUN Creatinine Ratio 22.3; Bilirubin Total 0.6 mg/dL (0.2-1.0); Calcium 9.9 mg/dL (8.5-10.1); Carbon Dioxide 27.7 mmol/L (21.0-32.0); Chloride 100 mmol/L (98-107); Estimated GFR (African America >60 (>=60 mL/min/1.73m^2); Estimated GFR (Non-African Ame 51 (>=60 mL/min/1.73m^2); Globulin 3.6 g/dL; Glucose 213 mg/dL (74-106); INR 1.06; Potassium 4.4 mmol/L (3.5-5.1); Prothrombin Time 11.2 sec (9.0-11.6); Sodium 135 mmol/L (136-145); Total Protein 7.1 g/dL (6.4-8.2)
[2024-09-17 12:02] LABS: Thyroid Stimulating Hormone 0.041 uIU/mL (0.358-3.740); Troponin I High Sensitivity 5.6 pg/mL (4.0-51.3)
[2024-09-17 12:10] LABS: Bilirubin Urine NEGATIVE (NEGATIVE); Blood Urine NEGATIVE (NEGATIVE); Clarity Urine CLEAR (CLEAR); Color Urine LT. YELLOW (YELLOW); Glucose Urine UA NEGATIVE (NEGATIVE); Ketones Urine 15 mg/dL (NEGATIVE); Leukocyte Esterase Urine TRACE (NEGATIVE); Nitrite Urine NEGATIVE (NEGATIVE); Protein Urine NEGATIVE (NEG/TRACE); Urobilinogen Urine 0.2 EU/dL (0.2-1.0)
[2024-09-17 12:11] LABS: Urine Microscopic Indicated YES
[2024-09-17 12:25] LABS: Bacteria Urine NONE SEEN #/HPF (NONE SEEN); Mucus Urine NONE SEEN (NONE SEEN); RBC Urine NONE SEEN #/HPF (0-2); Squamous Epithelial Cell Urine FEW #/LPF (NONE/RARE); Urine Culture Indicated NO; WBC Urine 0-2 #/HPF (NONE SEEN)
[2024-09-17] MEDS: CEFTRIAXONE 1,000 MG in 0.9 % SODIUM CHLORIDE 50 ML 100 MG IV (16:32)
[2024-09-17] MEDS: METRONIDAZOLE/SODIUM CHLORIDE 500 MG/100 ML PREMIX 100 MG IV (16:49)
== END 2024-09-17 17:49 | disposition short-term general hospital (02) ==
PROVIDERS: Emergency Provider Emergency Medicine; PCP Nurse Practitioner
DX: K80.10 Calculus of gallbladder with chronic cholecystitis without obstruction (principal); R41.82 Altered mental status, unspecified; Z87.440 Personal history of urinary (tract) infections
CPT/HCPCS: 36415; 70450; 71046; 74177; 80053; 81001; 83690; 84443; 84484; 85025; 85610; 93005; 96365; 96368; 99285; J0696; J1836; Q9967

== ENCOUNTER 2024-10-15 11:10 | Emergency (ER) | payer MEDICARE, SELFPAY ==
[2024-10-15 11:22] VITALS: BP 160/80; PULSE 84; TEMP 36.8; O2SAT 98; BMI 37.1
--- NOTE | 2024-10-15 11:33 | ED_ITS ---
HPI HPI - General Adult General Chief complaint: Abdominal Pain Stated complaint: ABDOMINAL PAIN Time Seen by Provider: 10/15/24 11:22 Source: patient Mode of arrival: walk-in Limitations: no limitations History of Present Illness HPI narrative: Patient presented to the emergency department for evaluation of abdominal pain. Patient is here with her , they state that she was here approximately a month ago, she was found to have gallstones, shifted White, they determined that it was not infected gallbladder and she was hospitalized for about a week and then discharged. He states she has been fine for the last several weeks and then started complaining yesterday of abdominal pain again. Patient states that it is in the lower abdomen, intermittent, sharp and achy right lower quadrant, left lower quadrant, suprapubic. Denies hematuria, urgency, frequency. No nausea or vomiting, no diarrhea. No other complaints at this time Related Data Home Medications ?Medication ?Instructions ?Recorded ?Confirmed apixaban 5 mg tablet (Eliquis) 5 mg PO BID 09/17/24 10/15/24 ezetimibe 10 mg tablet 10 mg PO DAILY 09/17/24 10/15/24 glipizide 5 mg tablet 5 mg PO BID 09/17/24 10/15/24 lisinopril 20 mg tablet 20 mg PO DAILY 09/17/24 10/15/24 metformin 1,000 mg tablet 1,000 mg PO BID 09/17/24 10/15/24 metoprolol succinate 100 mg 100 mg PO DAILY 09/17/24 10/15/24 tablet,extended release 24 hr rosuvastatin 5 mg tablet 5 mg PO BEDTIME 09/17/24 10/15/24 spironolactone 25 mg tablet 12.5 mg PO DAILY 09/17/24 10/15/24 lisinopril 10 mg tablet 10 mg PO DAILY 10/15/24 10/15/24 pantoprazole 40 mg tablet,delayed 40 mg PO BID 10/15/24 10/15/24 release Allergies Allergy/AdvReac Type Severity Reaction Status Date / Time morphine AdvReac Nausea Verified 10/15/24 12:32 Opioid HPI Opioid Management Most Recent Opioid Data: Last Pain Scale 0 09/17/24 11:29 09/17/24 Review of Systems ROS Narrative Negative unless otherwise stated in the HPI PFSH PFSH Social History Little interest or pleasure in doing things: not at all Feeling down, depressed, or hopeless: not at all Exam Narrative Exam Narrative: General: NAD, AAOx3, no distress HEENT: NCAT, mmm Neck: Supple, no LAD, nonmeningeal Respiratory: respiratory effort normal, speaks in full sentences, no tripod position, no accessory muscle use. Lungs clear to auscultation without rhonchi, wheezes, rales Cardiac: Regular rate and rhythm, no edema, regular s1/s2, no m/g/r Abdomen: Soft, tenderness to palpation in the lower hemiabdomen. No evidence of fluid wave. No pulsatile masses on exam, rebound tenderness, Spear sign or pain over Mcburney's point. Constitutional Vital Signs, click to edit/add: Last Vital Signs Temp 98.2 F 10/15/24 11:22 Pulse 84 10/15/24 11:22 Resp 18 10/15/24 11:22 BP 160/80 H 10/15/24 11:22 Pulse Ox 98 10/15/24 11:22 O2 Del Method Room Air 10/15/24 11:22 Course Vital Signs Vital signs: Vital Signs Temperature 98.2 F 10/15/24 11:22 Pulse Rate 84 10/15/24 11:22 Respiratory Rate 18 10/15/24 11:22 Blood Pressure 160/80 H 10/15/24 11:22 Pulse Oximetry 98 10/15/24 11:22 Oxygen Delivery Method Room Air 10/15/24 11:22 Temperature 98.2 F 10/15/24 11:22 Pulse Rate 84 10/15/24 11:22 Respiratory Rate 18 10/15/24 11:22 Blood Pressure 160/80 H 10/15/24 11:22 Pulse Oximetry 98 10/15/24 11:22 Oxygen Delivery Method Room Air 10/15/24 11:22 Medical Decision Making MDM Narrative Medical decision making narrative: Pt who presents for abdominal pain. Patient on exam was well appearing, no distress with benign, non peritoneal abdomen. At this point in time, history and benign exam do not suggest acute intra-abdominal process such as appendicitis, obstruction, cholecystitis or other acute intra-abdominal process. Laboratory studies were done and not suggestive of acute disease. Patient given IV fluids and symptomatic control with improvement. Pt is tolerating PO intake at this time. Unclear etiology for pain at this time. Shared decision making was utilized with patient r and and patient agrees with plan of care. Patient's is upset, states that he wasted his time by coming here, I discussed with him the findings on the CT, recommending WATER REGISTRAR consultation. He states he knew that from his follow-up with her PCP, they told him there is setting her up with an CABLE MOCK UP ASSEMBLER because of something that they felt. But he wants an antibiotic or something to help clear this all out until they can see the CABLE MOCK UP ASSEMBLER. I discussed with him that there is no indication for antibiotics, she has no signs of infection. Unclear etiology for abdominal pain but given that she is most tender in the suprapubic as well as right and left lower quadrants, this is likely related to the WATER REGISTRAR issue that they found. He again was upset which she discussed with staff and just told us to go away and stopped talking to examiner. I have recommended Tylenol for pain control as well as fluids with close PCP follow up. Patient should return to the ER in 8-12 hours if having persistent or worsening pain. Advanced guidance has been given. Vss, pex is benign at this time. Pt to fu with pcp 1-2 days for reeval, rter should sx worsen, persist or become worrysome in any way. Pt expressed understanding and agreement with plan of care at this time. Will fu as planned. Pt stable for discharge. Lab Data Labs: Lab Results 10/15/24 Range/Units 11:39 WBC 7.4 (4.0-11.0) 10^3/uL RBC 4.35 (4.20-5.40) 10^6/uL Hgb 13.2 (12.0-16.0) g/dL Hct 41.4 (36.0-48.0) % MCV 95.2 (81.0-99.0) fL MCH 30.3 (26.7-34.0) pg MCHC 31.9 (29.9-35.2) g/dL RDW 13.5 (11.0-15.0) % Plt Count 239 (150-450) 10^3/uL MPV 9.7 (9.5-13.5) fL Neut % (Auto) 56.6 (43.0-75.0) % Lymph % (Auto) 28.8 (20.5-60.0) % [place] % (Auto) 5.7 (1.7-12.0) % Eos % (Auto) 8.7 H (0.9-7.0) % Baso % (Auto) 0.1 L (0.2-2.0) % Neut # (Auto) 4.2 (1.4-6.5) 10^3/uL Lymph # (Auto) 2.1 (1.2-3.8) 10^3/uL [place] # (Auto) 0.4 (0.3-0.8) 10^3/uL Eos # (Auto) 0.6 (0.0-0.7) 10^3/uL Baso # (Auto) 0.0 (0.0-0.1) 10^3/uL Abs Immat Gran (auto) 0.01 (0.00-0.03) 10^3/uL Imm/Tot Granulo (auto) 0.1 (0.0-0.5) % Sodium 135 L (136-145) mmol/L Potassium 4.8 (3.5-5.1) mmol/L Chloride 100 (98-107) mmol/L Carbon Dioxide 22.1 (21.0-32.0) mmol/L Anion Gap 17.7 BUN 15.0 (7.0-18.0) mg/dL Creatinine 0.92 (0.55-1.02) mg/dL Est GFR ( Amer) >60 (>=60 mL/min/1.73m^2) Est GFR (Non-Af Amer) 58 L (>=60 mL/min/1.73m^2) BUN/Creatinine Ratio 16.3 Glucose 166 H (74-106) mg/dL Calcium 9.5 (8.5-10.1) mg/dL Total Bilirubin 0.4 (0.2-1.0) mg/dL AST 25 (15-37) U/L ALT 21 (14-59) U/L Alkaline Phosphatase 57 (46-116) U/L Total Protein 7.1 (6.4-8.2) g/dL Albumin 3.3 L (3.4-5.0) g/dL Globulin 3.8 g/dL Albumin/Globulin Ratio 0.9 Lipase 44.0 (16.0-77.0) U/L Urine Color Lt. yellow (YELLOW) Urine Clarity Clear (CLEAR) Urine pH 6.0 (5.0-9.0) Ur Specific [place] 1.015 (1.005-1.025) Urine Protein Negative (NEG/TRACE) mg/dL Urine Glucose (UA) Negative (NEGATIVE) mg/dL Urine Ketones Negative (NEGATIVE) mg/dL Urine Occult Blood Negative (NEGATIVE) Urine Nitrite Negative (NEGATIVE) Urine Bilirubin Negative (NEGATIVE) Urine Urobilinogen 0.2 (0.2-1.0) EU/dL Ur Leukocyte Esterase Negative (NEGATIVE) Urine RBC None seen (0-2) #/HPF Urine WBC None seen (NONE SEEN) #/HPF Ur Squamous Epith Cells None seen (NONE/RARE) #/LPF Urine Crystals None seen (None Seen) #/HPF Urine Bacteria Trace A (NONE SEEN) #/HPF Urine Casts None seen (NONE SEEN) #/LPF Urine Mucus None seen (NONE SEEN) Discharge Plan Discharge Chief Complaint: Abdominal Pain Clinical Impression: Abdominal pain Patient Disposition: Home, Self-Care Time of Disposition Decision: 13:13 Condition: Good Prescriptions / Home Meds: No Action Eliquis 5 mg tablet 5 mg PO BID ezetimibe 10 mg tablet 10 mg PO DAILY glipizide 5 mg tablet 5 mg PO BID lisinopril 20 mg tablet 20 mg PO DAILY metformin 1,000 mg tablet 1,000 mg PO BID metoprolol succinate 100 mg tablet extended release 24 hr 100 mg PO DAILY rosuvastatin 5 mg tablet 5 mg PO BEDTIME spironolactone 25 mg tablet 12.5 mg PO DAILY pantoprazole 40 mg tablet,delayed release (DR/EC) 40 mg PO BID Rx Instructions: take before morning and evening meal lisinopril 10 mg tablet 10 mg PO DAILY Print Language: Nicaraguan Instructions: Abdominal Pain (ED) Additional Instructions: Follow-up with your PCP in the next 1 to 2 days. Return to the emergency department should symptoms worsen or become worrisome in any way. Follow-up with CABLE MOCK UP ASSEMBLER as discussed and planned Referrals: Kirstin Miller NP [Primary Care Provider] - 1 week
[2024-10-15] MEDS: MORPHINE SULFATE 2 MG/ML SYRINGE 4 MG IV (11:55)
[2024-10-15] MEDS: ONDANSETRON PF 4 MG/2 ML VIAL IV (11:55)
[2024-10-15] MEDS: 0.9 % SODIUM CHLORIDE 1,000 ML 999 ML IV (11:56)
[2024-10-15 11:58] LABS: Basophils Percent Auto 0.1 % (0.2-2.0); Eosinophils Absolute Auto 0.6 10^3/uL (0.0-0.7); Eosinophils Percent Auto 8.7 % (0.9-7.0); Hematocrit 41.4 % (36.0-48.0); Hemoglobin 13.2 g/dL (12.0-16.0); Immature Granulocytes Abs Auto 0.01 10^3/uL (0.00-0.03); Immature Granulocytes Pct Auto 0.1 % (0.0-0.5); Lymphocytes Absolute Auto 2.1 10^3/uL (1.2-3.8); Lymphocytes Percent Auto 28.8 % (20.5-60.0); Mean Corpuscular HGB Conc 31.9 g/dL (29.9-35.2); Mean Corpuscular Hemoglobin 30.3 pg (26.7-34.0); Mean Corpuscular Volume 95.2 fL (81.0-99.0); Mean Platelet Volume 9.7 fL (9.5-13.5); Monocytes Absolute Auto 0.4 10^3/uL (0.3-0.8); Monocytes Percent Auto 5.7 % (1.7-12.0); Neutrophils Absolute Auto 4.2 10^3/uL (1.4-6.5); Neutrophils Percent Auto 56.6 % (43.0-75.0); Platelet Count 239 10^3/uL (150-450); Red Blood Count 4.35 10^6/uL (4.20-5.40); Red Cell Distribution Width 13.5 % (11.0-15.0); White Blood Count 7.4 10^3/uL (4.0-11.0)
[2024-10-15 11:59] LABS: Bilirubin Urine NEGATIVE (NEGATIVE); Blood Urine NEGATIVE (NEGATIVE); Clarity Urine CLEAR (CLEAR); Color Urine LT. YELLOW (YELLOW); Glucose Urine UA NEGATIVE (NEGATIVE); Ketones Urine NEGATIVE (NEGATIVE); Leukocyte Esterase Urine NEGATIVE (NEGATIVE); Nitrite Urine NEGATIVE (NEGATIVE); Protein Urine NEGATIVE (NEG/TRACE); Specific Gravity Urine 1.015 (1.005-1.025); Urobilinogen Urine 0.2 EU/dL (0.2-1.0)
--- NOTE | 2024-10-15 12:11 | CT_ITS ---
[address] [address] Patient Name: SAEED JOHNSON MRN: [id number] date: 1940 Sex: F Assigned Patient Location: ER Current Patient Location: .MAIN Accession/Order Number: [id number] Exam Date: 10/15/2024 11:58 Report Date: 10/15/2024 12:43 At the request of: EDMUNDO FOX Procedure: CT abdomen pelvis w con EXAMINATION: CT abdomen pelvis w con HISTORY: abdominal pain COMPARISON: CT abdomen pelvis 09/17/2024 TECHNIQUE: Axial, Coronal, and Sagittal images were obtained without and/or with IV contrast as indicated by examination type. Dose reduction techniques were achieved by using automated exposure control and/or adjustment of mA and/or kV according to patient size and/or use of iterative reconstruction technique. FINDINGS: LUNG BASES: No visible pulmonary or pleural disease. LIVER: No enlargement, atrophy, suspicious density, or significant focal lesion. BILIARY: Numerous 1 cm stones within noninflamed gallbladder. PANCREAS: No lesion, fluid collection, or abnormal duct dilatation. SPLEEN: No enlargement or focal lesion. ADRENALS: No mass or enlargement. KIDNEYS: Small nonobstructing stone within right and left kidney. Cortical atrophy bilaterally. Unremarkable ureters. BOWEL/MESENTERY: Mild diverticulosis of descending and sigmoid colon without acute inflammatory changes. No visible mass, obstruction, or bowel wall thickening. AORTA/VASCULAR: Marked atherosclerotic disease. No aneurysm. RETROPERITONEUM: No mass or adenopathy. LYMPH NODES: No adenopathy. URINARY BLADDER: No visible focal wall thickening, lesion, or calculus. PELVIC ORGANS: Endometrium is 12 mm in thickness. ABDOMINAL WALL: No mass or hernia. BONES: Reversal normal lordotic curvature of upper lumbar spine. Multilevel marked degenerative disc disease and facet arthropathy of lumbar spine. OTHER: Negative. CT/CT abdomen pelvis w con IMPRESSION: 1. No appreciable acute abnormality to account for patient's symptoms. 2. Cholelithiasis. 3. Nonobstructing bilateral nephrolithiasis. 4. Marked atherosclerotic disease. 5. Uterine endometrium is 12 mm in thickness which is abnormal for patient of this age. Consider PRESERVATIONIST consultation.. Electronically authenticated by: PAULA JEWELL Date: 10/15/2024 12:43
[2024-10-15 12:19] LABS: Alanine Aminotransferase 21 U/L (14-59); Albumin Globulin Ratio 0.9; Albumin Level 3.3 g/dL (3.4-5.0); Alkaline Phosphatase 57 U/L (46-116); Anion Gap 17.7; Aspartate Amino Transferase 25 U/L (15-37); BUN Creatinine Ratio 16.3; Bilirubin Total 0.4 mg/dL (0.2-1.0); Calcium 9.5 mg/dL (8.5-10.1); Carbon Dioxide 22.1 mmol/L (21.0-32.0); Chloride 100 mmol/L (98-107); Estimated GFR (African America >60 (>=60 mL/min/1.73m^2); Estimated GFR (Non-African Ame 58 (>=60 mL/min/1.73m^2); Globulin 3.8 g/dL; Glucose 166 mg/dL (74-106); Potassium 4.8 mmol/L (3.5-5.1); Sodium 135 mmol/L (136-145); Total Protein 7.1 g/dL (6.4-8.2)
[2024-10-15 12:30] LABS: Bacteria Urine TRACE #/HPF (NONE SEEN); Cast Seen? NONE SEEN #/LPF (NONE SEEN); Crystals Seen? None Seen #/HPF (None Seen); Mucus Urine NONE SEEN (NONE SEEN); RBC Urine NONE SEEN #/HPF (0-2); Squamous Epithelial Cell Urine NONE SEEN #/LPF (NONE/RARE); WBC Urine NONE SEEN #/HPF (NONE SEEN)
[2024-10-15 13:22] VITALS: BP 170/73; PULSE 87; O2SAT 98
== END 2024-10-15 13:36 | disposition home or self-care (01) ==
PROVIDERS: Emergency Provider Emergency Medicine; PCP Nurse Practitioner
DX: R10.31 Right lower quadrant pain (principal); R10.32 Left lower quadrant pain; K80.20 Calculus of gallbladder without cholecystitis without obstruction; R93.89 Abnormal findings on diagnostic imaging of other specified body structures
CPT/HCPCS: 36415; 74177; 80053; 81001; 83690; 85025; 99284; J2270; J2405; Q9967

== ENCOUNTER 2025-01-31 08:34 | Outpatient (OUT) | payer MEDICARE, SELFPAY ==
[2025-01-31 09:04] LABS: Basophils Percent Auto 0.4 % (0.2-2.0); Eosinophils Absolute Auto 0.3 10^3/uL (0.0-0.7); Eosinophils Percent Auto 3.7 % (0.9-7.0); Hematocrit 41.9 % (36.0-48.0); Immature Granulocytes Abs Auto 0.01 10^3/uL (0.00-0.03); Immature Granulocytes Pct Auto 0.1 % (0.0-0.5); Lymphocytes Absolute Auto 3.7 10^3/uL (1.2-3.8); Lymphocytes Percent Auto 47.2 % (20.5-60.0); Mean Corpuscular Hemoglobin 30.4 pg (26.7-34.0); Mean Corpuscular Volume 98.1 fL (81.0-99.0); Mean Platelet Volume 9.4 fL (9.5-13.5); Monocytes Absolute Auto 0.6 10^3/uL (0.3-0.8); Monocytes Percent Auto 8.3 % (1.7-12.0); Neutrophils Absolute Auto 3.1 10^3/uL (1.4-6.5); Neutrophils Percent Auto 40.3 % (43.0-75.0); Platelet Count 283 10^3/uL (150-450); Red Blood Count 4.27 10^6/uL (4.20-5.40); White Blood Count 7.7 10^3/uL (4.0-11.0)
[2025-01-31 09:27] LABS: Alanine Aminotransferase 19 U/L (14-59); Albumin Level 3.6 g/dL (3.4-5.0); Alkaline Phosphatase 55 U/L (46-116); Anion Gap 13.8; Aspartate Amino Transferase 20 U/L (15-37); BUN Creatinine Ratio 23.8; Bilirubin Total 0.6 mg/dL (0.2-1.0); Calcium 9.7 mg/dL (8.5-10.1); Carbon Dioxide 29.5 mmol/L (21.0-32.0); Chloride 107 mmol/L (98-107); Chol HDL Ratio 2.3; Cholesterol 145 mg/dL (<=200); Estimated GFR (African America >60 (>=60 mL/min/1.73m^2); Estimated GFR (Non-African Ame 52 (>=60 mL/min/1.73m^2); Globulin 3.5 g/dL; Glucose 105 mg/dL (74-106); HDL Cholesterol 62 mg/dL (40-60); Potassium 4.3 mmol/L (3.5-5.1); Sodium 146 mmol/L (136-145); Total Protein 7.1 g/dL (6.4-8.2); Triglycerides 114 mg/dL (<=150); VLDL CHOLESTEROL 22.8 mg/dL
[2025-01-31 10:20] LABS: Estimated Average Glucose 117 mg/dL; Glycohemoglobin A1C 5.7 % (4.5-6.2)
[2025-01-31 12:52] LABS: Bilirubin Urine NEGATIVE (NEGATIVE); Blood Urine NEGATIVE (NEGATIVE); Clarity Urine CLEAR (CLEAR); Color Urine YELLOW (YELLOW); Glucose Urine UA NEGATIVE (NEGATIVE); Ketones Urine TRACE mg/dL (NEGATIVE); Leukocyte Esterase Urine TRACE (NEGATIVE); Nitrite Urine NEGATIVE (NEGATIVE); Protein Urine TRACE mg/dL (NEG/TRACE); Specific Gravity Urine 1.025 (1.005-1.025); Urobilinogen Urine 0.2 EU/dL (0.2-1.0)
[2025-01-31 12:58] LABS: Creatinine Urine Random 186.61 mg/dL (20.00-300.00); Microalbum Creatinine Ratio Ur 9.6 mg/g (0.0-29.9); Microalbumin Urine Random 1.8 mg/dL (<=30.0)
[2025-01-31 13:24] LABS: Urine Microscopic Indicated YES
[2025-01-31 13:28] LABS: Bacteria Urine TRACE #/HPF (NONE SEEN); Cast Seen? SEEN #/LPF (NONE SEEN); Crystals Seen? None Seen #/HPF (None Seen); Hyaline Casts Urine RARE; Mucus Urine NONE SEEN (NONE SEEN); RBC Urine NONE SEEN #/HPF (0-2); Squamous Epithelial Cell Urine FEW #/LPF (NONE/RARE)
[2025-02-01 04:07] LABS: Vitamin B12 600 pg/mL (232-1245)
== END 2025-01-31 08:35 | disposition home or self-care (01) ==
LOC: LAB 08:35
PROVIDERS: PCP Nurse Practitioner; Visit Provider Nurse Practitioner
DX: E78.2 Mixed hyperlipidemia (principal); I10 Essential (primary) hypertension; E53.8 Deficiency of other specified B group vitamins; E11.9 Type 2 diabetes mellitus without complications
CPT/HCPCS: 36415; 80053; 80061; 81001; 82043; 82570; 82607; 83036; 85025

== ENCOUNTER 2025-04-19 08:27 | Emergency (ER) | payer MEDICARE, SELFPAY ==
--- OUTSIDE RECORDS SUMMARY | 2025-04-19 08:33 | XMS_ITS | Clinical Summary ---
Author Organization [facility] Address [address] [place] [address] Care Team Providers Care Statistician Name Role Phone Unavailable Primary Care Provider Unavailabl e Social History Tobacco Use Types Packs/Day Years Used Date Smoking Tobacco: Never Assessed Comments Unknown Sex and Gender Information Value Date Recorded Sex Assigned at Not on file Legal Sex Female 10:23 PM EST Gender Identity Not on file Sexual Orientation Not on file Plan of Treatment Not on file
--- OUTSIDE RECORDS SUMMARY | 2025-04-19 08:33 | XMS_ITS | Encounter Summary ---
Author Organization [facility] Address [address] [facility] [place] [address] Care Team Providers Care Steward/Stewardess Tourist Class Name Role Phone Kirstin Miller NP Unavailable [phone] Mike Steiner MD Primary Care Provider [phone] Encounter Details Date Type Department Care Team (Late st Contact Info) Description 09/17/2024 Orders Only [facility] [address] [place] [address] Kirstin Miller, RONNIE [address] [place] [address] Social History Tobacco Use Types Packs/Day Years Used Date Smoking Tobacco: Never Smokeless Tobacco: Never Alcohol Use Standard Drinks/Week Comments Never 0 (1 standard drink = 0.6 oz pur e alcohol) coffee: 1-2 daily Comments Unknown Sex and Gender Information Value Date Recorded Sex Assigned at Not on file Legal Sex Female 7:13 PM EDT Gender Identity Not on file Sexual Orientation Not on file documented as of this encounter Plan of Treatment Upcoming Encounters Date Type Department Care Team (Late st Contact Info) Description 05/22/2025 10:30 AM EDT Office Visit [facility] [address] [place] [address] Kirstin Miller, RONNIE [address] [place] [phone] 02/23/2026 10:30 AM EDT Office Visit [facility] [address] [place] [address] Kirstin Miller NP [address] [place] [address] documented as of this encounter Procedures Procedure Name Priority Date/Time Associated Diagnosis Comments XR CHEST 2 VIEWS Routine 09/17/2024 12:42 PM EST documented in this encounter Results * XR chest 2 views (09/17/2024 12:42 PM EST) Anatomical Region Laterality Modality Chest Radiographic Daniella ging us Kirstin Miller MANAGER LAUNDRY IMG XR PROCEDURES Final Result documented in this encounter Visit Diagnoses Not on filedocumented in this encounter Additional Health Concerns Assessment Noted Time PHQ-9 Depression Total Score: 1 02/15/20 24 4:46 PM EDT documented as of this encounter Care Teams Steward/Stewardess Tourist Class Relationship Specialty Start Date End Date Mike Steiner MD [address] [place] [phone] PCP - General Family Medicine 08/20/24 Kirstin Miller NP [address] [place] [address] Nurse Practitioner Family Medicine 08/09/23 documented as of this encounter
--- OUTSIDE RECORDS SUMMARY | 2025-04-19 08:33 | XMS_ITS | Encounter Summary ---
Author Organization [facility] Address [address] [facility] [place] [address] Care Team Providers Care As400 Operator Name Role Phone Kirstin Miller NP Unavailable [phone] Mike Steiner MD Primary Care Provider [phone] Encounter Details Date Type Department Care Team (Late st Contact Info) Description 10/15/2024 Orders Only [facility] [address] [place] [phone] Social History Tobacco Use Types Packs/Day Years [...] 05/22/2025 10:30 AM EDT Office Visit [facility] [address] [place] [address] Kirstin Miller NP [address] [place] [phone] 02/23/2026 10:30 AM EDT Office Visit [facility] [address] [place] [address] Kirstin Miller NP [address] [place] [address] documented as of this encounter Procedures Procedure Name Priority Date/Time Associated Diagnosis Comments CT ABDOMEN/PELVIS WITH CONTRAST Routine 10/15/2024 1:02 PM EST documented in this encounter Results * CT ABDOMEN/PELVIS WITH CONTRAST (10/15/2024 1:02 PM EST) Anatomical Region Laterality Modality Radiographic Daniella ging [facility] IMG XR PROCEDURES Final Result documented in this encounter Visit Diagnoses Not on filedocumented in this encounter Additional Health Concerns Assessment Noted Time PHQ-9 Depression Total Score: 1 02/15/20 24 4:46 PM EDT documented as of this encounter Care Teams As400 Operator Relationship Specialty Start Date End Date Mike Steiner MD [address] [place] [address] PCP - General Family Medicine 08/20/24 Kirstin Miller NP [address] [place] [address] Nurse Practitioner Family Medicine 08/09/23 documented as of this encounter
--- OUTSIDE RECORDS SUMMARY | 2025-04-19 08:33 | XMS_ITS | Encounter Summary ---
Author Organization [facility] Address [address] [facility] [place] [address] Care Team Providers Care Plsql Developer Name Role Phone Kirstin Miller NP Unavailable [phone] Mike Steiner MD Primary Care Provider [phone] Encounter Details Date Type Department Care Team (Late st Contact Info) Description 09/19/2024 Orders Only [facility] [address] [place] [address] Kirstin Miller, RONNIE [address] [place] [address] Social History Tobacco Use Types Packs/Day Years [...] Office Visit [facility] [address] [place] [address] Kirstin Miller, RONNIE [address] [place] [phone] 02/23/2026 10:30 AM EDT Office Visit [facility] [address] [place] [address] Kirstin Miller NP [address] [place] [address] documented as of this encounter Procedures Procedure Name Priority Date/Time Associated Diagnosis Comments SCANNED LABS Routine 09/19/2024 8:43 AM EST documented in this encounter Results * SCANNED LABS (09/19/2024 8:43 AM EST) us Kirstin Miller DONOR RELATIONS OFFICER LAB CHG PERFORMABLES Final Resu lt documented in this encounter Visit Diagnoses Not on filedocumented in this encounter Additional Health Concerns Assessment Noted Time PHQ-9 Depression Total Score: 1 02/15/20 24 4:46 PM EDT documented as of this encounter Care Teams Plsql Developer Relationship Specialty Start Date End Date Mkie Steiner MD [address] [place] [address] PCP - General Family Medicine 08/20/24 Kirstin Miller NP [address] [place] [address] Nurse Practitioner Family Medicine 08/09/23 documented as of this encounter
--- OUTSIDE RECORDS SUMMARY | 2025-04-19 08:33 | XMS_ITS | Encounter Summary ---
Author Organization [facility] Address [address] [facility] [place] [address] Care Team Providers Care Wash Driller Helper Name Role Phone Kirstin Miller NP Unavailable [phone] Mike Steiner MD Primary Care Provider Encounter Details Date Type Department Care Team (Late st Contact Info) Description 10/22/2024 Orders Only [facility] [address] [place] [address] Kirstin Miller, RESEARCH AND DEVELOPMENT MANAGER [address] [place] [address] Thickened endometrium (Primary Dx) Social History Tobacco Use Types Packs/Day Years [...] on file documented as of this encounter Progress Notes * Kirstin Miller NP - 10/22/2024 12:49 PM ESTAssociated Problem(s): Thickened endometrium Noted on CT scan 09/17/24 Discussion of this was done today with daughter and pt We discussed that this could be a benign or a malignant etiology She will think about what to do in the next few weeks and I will contact her early October for answer as to what we do next 10/10/24: reports will proceed with pelvic US documented in this encounter Plan of Treatment Upcoming Encounters Date Type Department Care Team (Late st Contact Info) Description 05/22/2025 10:30 AM EDT Office Visit [facility] [address] [place] [address] Kirstin Miller NP [address] [place] [address] 02/23/2026 10:30 AM EDT Office Visit [facility] [address] [place] [address] Kirstin Miller NP [address] [place] [address] documented as of this encounter Visit Diagnoses Diagnosis Thickened endometrium- Primary Nonspecific (abnormal) findings on radiological and other examination of genitourinary organs documented in this encounter Additional Health Concerns Assessment Noted Time PHQ-9 Depression Total Score: 1 02/15/20 24 4:46 PM EDT documented as of this encounter Care Teams Wash Driller Helper Relationship Specialty Start Date End Date Mike Steiner MD [address] [place] [phone] PCP - General Family Medicine 08/20/24 Kirstin Miller NP [address] [place] [address] Nurse Practitioner Family Medicine 08/09/23 documented as of this encounter
--- OUTSIDE RECORDS SUMMARY | 2025-04-19 08:33 | XMS_ITS | Encounter Summary ---
Author Organization [facility] Address [address] [facility] [place] [address] Care Team Providers Care Cad Technician Name Role Phone Kirstin Miller NP Unavailable [phone] Mike Steiner MD Primary Care Provider [phone] Encounter Details Date Type Department Care Team (Late st Contact Info) Description 12/26/[address] [facility] [address] [place] [address] Kirstin Miller, RONNIE [address] [place] [address] Social History Tobacco Use Types Packs/Day Years [...] Office Visit [facility] [address] [place] [address] Kirstin Miller, RONNIE [address] [place] [phone] 02/23/2026 10:30 AM EDT Office Visit [facility] [address] [place] [address] Kirstin Miller NP [address] [place] [phone] documented as of this encounter Procedures Procedure Name Priority Date/Time Associated Diagnosis Comments DIABETIC RETINOPATHY SCREENING - OU - BOTH EYES Routine 12/26/2024 10:18 AM EDT documented in this encounter Results * Diabetic Retinopathy Screening - OU - Both Eyes (12/26/2024 10:18 AM EDT) Anatomical Region Laterality Modality Head Other us Kirstin Miller NP OPHTH PHOTOGRAPHY Final Result documented in this encounter Visit Diagnoses Not on filedocumented in this encounter Additional Health Concerns Assessment Noted Time PHQ-9 Depression Total Score: 1 02/15/20 24 4:46 PM EDT documented as of this encounter Care Teams Cad Technician Relationship Specialty Start Date End Date Mike Setiner MD [address] [place] [address] PCP - General Family Medicine 08/20/24 Kirstin Miller NP [address] [place] [address] Nurse Practitioner Family Medicine 08/09/23 documented as of this encounter
--- OUTSIDE RECORDS SUMMARY | 2025-04-19 08:33 | XMS_ITS | Encounter Summary ---
Author Organization [facility] Address [address] [place] [address] Care Team Providers Care Windmill Technician Name Role Phone Kirstin Miller MD Primary Care Provider [phone] Reason for Visit * Reason Comments Med Refill Encounter Details Date Type Department Care Team (Late st Contact Info) Description 12/02/2022 Refill [facility] [address] [place] [id number] Nela Garcia, DIRECTOR OF COMPLIANCE [address] [place] [address] Essential (primary) hypertension Social History Tobacco Use Types Packs/Day Years Used Date Smoking Tobacco: Never Assessed Comments Unknown Sex and Gender Information Value Date Recorded Sex Assigned at Female 09/17/2024 9:18 PM EST Legal Sex Female 10:17 PM EDT Gender Identity Female 09/17/2024 9:18 PM EST Sexual Orientation Heterosexual or Straight 09/08 9:18 PM EST documented as of this encounter Miscellaneous Notes * Telephone Encounter - GUMARO VOGEL - 12/06/2022 10:49 AM EST Last visit: 11/17/2021 Last labs: 04/04/2022 Last rx & refills: 03/10/2022 - unknown Next visit scheduled: 01/16/2023 Rx approved/denied: approved. Notes: rx approved per protocol. documented in this encounter Plan of Treatment Not on file documented as of this encounter Visit Diagnoses Diagnosis Essential (primary) hypertension Unspecified essential hypertension documented in this encounter Care Teams Windmill Technician Relationship Specialty Start Date End Date Kirstin Miller MD [address] [place] [address] PCP - General 01/16/23 documented as of this encounter
--- OUTSIDE RECORDS SUMMARY | 2025-04-19 08:33 | XMS_ITS | Clinical Summary ---
Author Organization [facility] Healthcare Address [address] [place] [address] Care Team Providers Care Structural Layout Worker Name Role Phone Kirstin Miller NP Unavailable [phone] Mike Steiner MD Primary Care Provider [phone] Allergies Active Allergy Reactions Criticality Noted Date Comments Morphine GI intolerance,Nausea Only Low 4 Medications Eliquis 5 MG tablet Take 5 mg by mouth in the morning and 5 mg before bedtime. Active bumetanide (Bumex) 1 MG tablet Take 1 mg by mouth Daily as needed (edema) 4 Active ezetimibe (Zetia) 10 MG tablet Take 10 mg by mouth at bedtime Active lisinopril 20 MG tablet Take 20 mg by mouth in the morning. 4 Active metoprolol succinate XL (Toprol-XL) 100 MG 24 hr tablet Take 100 mg by mouth in the morning. Active rosuvastatin (Crestor) 5 MG tablet Take 5 mg by mouth at bedtime Active spironolactone (Aldactone) 25 MG tablet Take 25 mg by mouth 1 (one) time Active fluconazole (Diflucan) 150 MG tabletIndications :Vaginal yeast infection Take 1 dose, then repeat in 3 days 2 tablet 4 Active Multiple Vitamins-Minerals (Oncovite) tablet Take 1 tablet by mouth in the morning. 5 Active cyanocobalamin (Vitamin B-12) 1000 MCG tablet Take 1,000 mcg by mouth in the morning. Active MAGNESIUM PO Take 250 mg by mouth in the morning. Active nitroglycerin (Nitrostat) 0.[address] 0.4 mg under the tongue 5 Active glucose blood (Accu-Chek Guide Test) test stripIndications: Type 2 diabetes mellitus without complication, without long-term current use of insulin (HCC) Use once daily. Use as instructed 50 each 8 5 12/03/19 26 Active Drug Thompson Unilet Lancets 30G misc use to test BLOOD SUGAR DAILY 5 Active Blood Glucose Monitoring Suppl (True Metrix Meter) w/Device kit USE DIRECTED 5 Active metFORMIN (Glucophage) 1000 MG tabletIndications :Type 2 diabetes mellitus without complications (HCC) Take 1 tablet (1,000 mg) by mouth in the morning and 1 tablet (1,000 mg) in the evening. Take with meals. 180 tablet 1 5 05/19/20 Active glipiZIDE (Glucotrol) 5 MG tabletIndications :Type 2 diabetes mellitus without complications (HCC) Take 1 tablet (5 mg) by mouth in the morning and 1 tablet (5 mg) in the evening. Take before meals. 180 tablet 1 5 05/19/20 Active pantoprazole (ProtoNix) 40 MG EC tabletIndications :Acute gastric ulcer without hemorrhage or perforation Take 1 tablet (40 mg) by mouth in the morning and 1 tablet (40 mg) in the evening. Take before meals. 180 tablet 1 05/19/20 Active Active Problems Problem Noted Date Diagnosed Date Type 2 diabetes mellitus wit h diabetic peripheral angiopathy without gangrene 10/30/2024 Assessment & Plan (02/18/2025 6:22 AM EDT): Continue with risk factor modification and control blood glucose as well as BP Assessment & Plan (12/03/2024 6:16 AM EST): Continue with risk factor modification and control blood glucose as well as BP Assessment & Plan (10/30/2024 6:55 AM EST): Good glucose control, cont meds Abnormal ultrasound of endometrium 10/29/2024 Assessment & Plan (10/30/2024 6:56 AM EST): Continue with WORKER'[employer] COMPENSATION CLAIMS EXAMINER Will be having biopsy Endocervical polyp 10/29/2024 Assessment & Plan (10/30/2024 6:56 AM EST): Noted on WORKER'S COMPENSATION CLAIMS EXAMINER exam and pelvic US Will get biopsy Endometrial polyp 10/29/2024 Assessment & Plan (10/30/2024 6:57 AM EST): Seen on WORKER'S COMPENSATION CLAIMS EXAMINER exam and had US, will be having biopsy Vitamin B12 deficiency 10/21/2024 Assessment & Plan (10/30/2024 6:57 AM EST): Started on supplement Unsure if contributing to her neuro status 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 10/18/2024 Delirium due to another medical condition 2024 Assessment & Plan (10/30/2024 11:11 AM EST): Reviewed neurology notes Low MOCA score as well Alert in office, answers questions appropriately Weight loss 10/18/2024 Malnutrition of moderate degree (HHS-HCC) 2024 Altered mental status 10/16/2024 Overview (10/18/2024): Had MRI brain at [facility] 09/19/24: mod periventricular FLAIR hyperintensities (chronic microvascular ischemia), seq of non acute lacunar infarct right centrum semiovale Assessment & Plan (10/30/2024 6:58 AM EST): Noted neuro notes Also had MRI brain Lower abdominal pain 10/16/2024 Assessment & Plan (12/03/2024 6:21 AM EST): Has had EGD and colonoscopy: colon polyp tubular adenoma and no malignancy Had endometrial biopsy: no malignancy Thickened endometrium 09/30/2024 Assessment & Plan (12/03/2024 6:22 AM EST): Had recent US with [facility] yesterday, I have reviewed notes and pelvic US Biopsy was neg for malignancy Is scheduled for hysteroscopy on 12/06/24 Assessment & Plan (10/30/2024 6:56 AM EST): Had recent US with [facility] yesterday, I have reviewed notes and pelvic US Plan to get biopsy Assessment & Plan (10/22/2024 12:49 PM EST): Noted on CT scan 09/17/24 Discussion of this was done today with daughter and pt We discussed that this could be a benign or a malignant etiology She will think about what to do in the next few weeks and I will contact her early October for answer as to what we do next 10/10/24: reports will proceed with pelvic US Assessment & Plan (10/10/2024 5:26 PM EST): Noted on CT scan 09/17/24 Discussion of this was done today with daughter and pt We discussed that this could be a benign or a malignant etiology She will think about what to do in the next few weeks and I will contact her early October for answer as to what we do next 10/10/24: reports will proceed with pelvic US Assessment & Plan (09/30/2024 1:09 PM EST): Noted on CT scan 09/17/24 Discussion of this was done today with daughter and pt We discussed that this could be a benign or a malignant etiology She will think about what to do in the next few weeks and I will contact her early October for answer as to what we do next Acute gastric ulcer without hemorrhage or perfor ation 09/30/2024 Overview (10/18/2024): EGD at [facility] 10/01 mild LA grade A esophagitis, 2 small ulcers Assessment & Plan (02/18/2025 11:23 AM EDT): Had fu EGD in October no malignancy Continue PPI BID Assessment & Plan (12/03/2024 6:20 AM EST): Had fu EGD in October no malignancy Assessment & Plan (09/30/2024 1:08 PM EST): Is going to fu with GI Continue PPI at BID ?causing some looser stools?? Obtain copies of EGD Acute cholecystitis 09/17/2024 Assessment & Plan (09/30/2024 1:08 PM EST): Was transferred to [facility] for this, no surgery as of yet Will need to review notes Acute metabolic encephalopathy 09/17/2024 Assessment & Plan (10/30/2024 6:54 AM EST): Dx in hospital Assessment & Plan (09/30/2024 1:07 PM EST): Was part of diagnosis when admitted to [facility] for gallballer resolved Cholelithiasis 09/17/2024 Vaginal yeast infection 08/30/2024 Hypernatremia 08/23/2024 Other thrombophilia ([facility]) 08/20/2024 Assessment & Plan (12/03/2024 6:17 AM EST): On eliquis Assessment & Plan (10/30/2024 6:58 AM EST): On eliquis Assessment & Plan (08/20/2024 6:39 AM EST): Continue with eliquis Peripheral vascular disease, unspecified 024 Assessment & Plan (08/20/2024 6:38 AM EST): Continue current meds Control of BP as well as DM Type 2 diabetes mellitus wit h diabetic neuropathy, unspecified 08/20/2024 Assessment & Plan (02/18/2025 6:21 AM EDT): Close monitoring of feet for s/s wounds, callous, or infection Good blood sugar control Assessment & Plan (12/03/2024 6:17 AM EST): Close monitoring of feet for s/s wounds, callous, or infection Good blood sugar control Assessment & Plan (10/30/2024 6:54 AM EST): Check blood sugars daily, notify if <70 [...] diet low in carbohydrates, and simple sugars. Current meds: glipizide as well as metformin Current A1c test: 6.1% on 08/20/2024 Assessment & Plan (09/30/2024 6:40 AM EST): Check blood sugars daily, notify if <70 [...] diet low in carbohydrates, and simple sugars. Current meds: glipizide as well as metformin Current A1c test: 6.1% on 08/20/2024 Assessment & Plan (08/20/2024 6:36 AM EST): Recommend tight blood glucose control Lumbar spinal stenosis 08/20/2024 Abnormal thyroid blood test 02/15/2024 Encounter for subsequent [facility] wellness visit (AWV) in Medicare patient 02/15/2024 Assessment & Plan (02/18/2025 6:24 AM EDT): Reviewed Ht/Wt/BMI Recommend eye exam yearly Recommend dental exams twice a year Exercises is recommended most days of the week (appropriate as chronic conditions allow) Follow up yearly and prn Assessment & Plan (02/15/2024 6:04 PM EDT): Reviewed Ht/Wt/BMI Recommend eye exam yearly Recommend dental exams twice a year Exercises is recommended most days of the week (appropriate as chronic conditions allow) Follow up yearly and prn Declines mammogram and colon cancer screening Constipation 04/02/2022 Overview (02/15/2024): Last Assessment & Plan: Assessment: POA PLAN: Currently: resolved Last Assessment & Plan: Assessment: POA PLAN: Currently: resolved Foot drop, right foot 03/29/2022 Overview (02/15/2024): Last Assessment & Plan: Assessment: POA PLAN: No improved yet s/p surgery AFO ordered and at the bedside Appreciate PT/OT evaluation Last Assessment & Plan: Assessment: POA PLAN: No improved yet s/p surgery AFO ordered and at the bedside Appreciate PT/OT evaluation Assessment & Plan (02/18/2025 6:22 AM EDT): Secondary to lumbar etiology Uses a walker, and brace as well for foot drop Right leg weakness 03/29/2022 Overview (02/15/2024): Last Assessment & Plan: Assessment: POA PLAN: Distal > proximal Appreciate PT/OT evaluation. Last Assessment & Plan: Assessment: POA PLAN: Distal > proximal Appreciate PT/OT evaluation. Coronary arteriosclerosis 11/17/2021 Assessment & Plan (08/20/2024 6:38 AM EST): Cont statin, b donna Chronic diastolic (congestive) heart failure 08/2014 Assessment & Plan (02/18/2025 6:22 AM EDT): Continue with cardiology as well as diuretics, BONIFACIO and b donna Assessment & Plan (10/30/2024 6:55 AM EST): Continue with cardiology as well as diuretics, BONIFACIO and b donna Assessment & Plan (09/30/2024 6:41 AM EST): Continue with cardiology as well as diuretics, BONIFACIO and b donna Assessment & Plan (08/20/2024 6:38 AM EST): Continue with cardiology as well as diuretics, BONIFACIO and b donna Chronic atrial fibrillation, unspecified 012 Overview (02/15/2024): Last Assessment & Plan: Assessment: POA PLAN: Will place telemetry eliquis held since 03/24 per patient Will restart 10 days after surgery- MondayApril 10 Assessment & Plan (02/18/2025 6:21 AM EDT): Continue eliquis therapy as b donna therapy No current symptoms, NSR today Continue w cardiology Assessment & Plan (12/03/2024 6:15 AM EST): Continue eliquis therapy as b donna therapy No current symptoms, NSR today Continue w cardiology Assessment & Plan (10/30/2024 11:11 AM EST): Continue eliquis therapy as b donna therapy No current symptoms, NSR today Continue w cardiology Assessment & Plan (09/30/2024 1:08 PM EST): Continue eliquis therapy as b donna therapy No current symptoms Continue w cardiology Assessment & Plan (08/20/2024 6:37 AM EST): Continue eliquis therapy as b donna therapy No current symptoms Benign essential HTN 02/01/2012 Overview (02/15/2024): Last Assessment & Plan: Assessment: POA PLAN: Continue home regimen of lisinopril 5mg Qday + metoprolol ER 100mg Qday Assessment & Plan (02/18/2025 6:21 AM EDT): Please check blood pressure daily and record DASH diet Limit caffeine Take medication as directed Contact office if chest pain, pressure, dizziness, shortness of breath, swelling legs Recommend slow position changes Current meds: lisinopril, metoprolol, spironolactone Assessment & Plan (12/03/2024 6:15 AM EST): Please check blood pressure daily and record DASH diet Limit caffeine Take medication as directed Contact office if chest pain, pressure, dizziness, shortness of breath, swelling legs Recommend slow position changes Current meds: lisinopril, metoprolol, spironolactone Assessment & Plan (10/30/2024 6:54 AM EST): Please check blood pressure daily and record DASH diet Limit caffeine Take medication as directed Contact office if chest pain, pressure, dizziness, shortness of breath, swelling legs Recommend slow position changes Current meds: lisinopril, metoprolol, spironolactone Assessment & Plan (09/30/2024 6:41 AM EST): Please check blood pressure daily and record DASH diet Limit caffeine Take medication as directed Contact office if chest pain, pressure, dizziness, shortness of breath, swelling legs Recommend slow position changes Current meds: lisinopril, metoprolol, spironolactone Assessment & Plan (08/20/2024 10:27 AM EST): Please check blood pressure daily and record- call if higher than 150/90 DASH diet Limit caffeine Take medication as directed Contact office if chest pain, pressure, dizziness, shortness of breath, swelling legs Recommend slow position changes I do recommend keeping at current dose of meds, with her age concern would be over possible increase in dizziness and possible fall Hyperlipidemia 02/01/2012 Overview (02/15/2024): Last Assessment & Plan: Assessment: POA PLAN: Continue home medication Assessment & Plan (02/18/2025 6:24 AM EDT): On zetia and crestor Check labs yearly and prn dose chagnes Assessment & Plan (12/03/2024 6:17 AM EST): On zetia and crestor Check labs yearly and prn dose chagnes Mitral valve regurgitation 02/01/2012 Type 2 diabetes mellitus without complication Overview (02/15/2024): Last Assessment & Plan: Assessment: POA PLAN: Will resume home metformin (BID) and glipizide SS1 Assessment & Plan (02/18/2025 6:24 AM EDT): Check blood sugars daily, notify if <70 [...] diet low in carbohydrates, and simple sugars. Current meds: glipizide, metformin, bonifacio, statin, A1c 5.7% 01/31/25 Assessment & Plan (12/03/2024 9:32 AM EST): Check blood sugars daily, notify if <70 [...] diet low in carbohydrates, and simple sugars. Current meds: glipizide, metformin, bonifacio, statin, A1c 5.8% Assessment & Plan (10/30/2024 6:57 AM EST): Check blood sugars daily, notify if <70 [...] diet low in carbohydrates, and simple sugars. Current meds: glipizide, metformin, bonifacio, statin, A1c 6.1% on 08/20/2024 Assessment & Plan (09/30/2024 6:43 AM EST): Check blood sugars daily, notify if <70 [...] diet low in carbohydrates, and simple sugars. Current meds: glipizide, metformin, bonifacio, statin, A1c 6.1% on 08/20/2024 Assessment & Plan (08/20/2024 9:43 AM EST): Check blood sugars daily, notify if <70 [...] in carbohydrates, and simple sugars. A1c 6.1% Resolved Problems Problem Noted Date Diagnosed Date Resolved Date Non-recurrent acute suppurat shaina otitis media of right ear without spontaneous rupture of tympanic membrane 10/10/2024 12/03/2024 Assessment & Plan (10/10/2024 4:54 PM EST): Likely secondary to sinus infection Will treat with atb Fu if not better Other acute sinusitis 10/10/20242024 Assessment & Plan (10/10/2024 4:56 PM EST): Discussed with pt and spouse likely viral in origin with differentials of COVID, FLU, or RSV to name a few, they do not wish to be tested and would not take anti virals if needed At this point they can continue to manage with fluids, rest, tylenol prn fever/body aches and Coricidin HPB for other symptoms Will contact office if worsens UTI symptoms 08/30/2024 09/30/2024 Spinal stenosis 03/28/2022 08/20/2024 Overview (02/15/2024): Last Assessment & Plan: Assessment: POA PLAN: L3-L5 laminectomhy on 03/31/[address] Jamison Overall doing well Drain removed SQH POD #2 Pain controlled Appreciate PT/OT and PMR- anticipated d/c to [facility] on Last Assessment & Plan: Assessment: POA PLAN: L3-L5 laminectomhy on 03/31/[address] Jamison Overall doing well Drain removed SQH POD #2 Pain controlled Appreciate PT/OT and PMR- anticipated d/c to [facility] on Encounters Date Type Department Care Team Description 02/18/2025 10:30 AM EDT Office Visit [facility] [address] [place] [address] Kirstin Miller NP Encounter for subsequent annual wellness visit (AWV) in Medicare patient (Primary Dx); Type 2 diabetes mellitus with diabetic neuropathy, without long-term current use of insulin (HCC); Benign essential HTN ; Chronic atrial fibrillation, unspecified (HCC); Chronic diastolic (congestive) heart failure (HCC); Type 2 diabetes mellitus with diabetic peripheral angiopathy without gangrene, without long-term current use of insulin (HCC); Foot drop, right foot; Type 2 diabetes mellitus without complication, without long-term current use of insulin (HCC); Mixed hyperlipidemia ; Type 2 diabetes mellitus without complications (HCC); Acute gastric ulcer without hemorrhage or perforation 02/18/2025 Bamboo flowsheet [facility] [address] [place] [phone] Kirstin Miller NP 01/31/2025 Clinisync Result Encounter [facility] External Department Unsolicited Kirstin Miller NP 01/30/2025 Orders Only [facility] [address] [place] [phone] Kirstin Miller NP Benign essential HTN (Primary Dx); Type 2 diabetes mellitus without complication, without long-term current use of insulin (HCC); Mixed hyperlipidemia ; Vitamin B12 deficiency from Last 3 Months Immunizations Immunization Administration Dates Next Due Influenza, High Dose Seasonal, Preservative Free 07/22/2024,07/28/2017 Influenza, High-dose Seasona l, Quadrivalent, Preservative Free 07/25/2023,08/08/2022 Influenza, Seasonal, Quadrivalent, Adjuvanted Influenza, injectable, quadrivalent, preservativ e free 06/06/2020 Influenza, recombinant, quad rivalent, injectable, preservative free 07/18/2019 Influenza, trivalent, adjuvanted 07/25/2018 Pneumococcal Conjugate PCV 13 03/23/2015 Pneumococcal Polysaccharide PPSV23 07/26/2016 Social History Tobacco Use Types Packs/Day Years Used Date Smoking Tobacco: Never Smokeless Tobacco: Never Tobacco Cessation:Counseling Given: Not Answered Alcohol Use Standard Drinks/Week Comments Never 0 (1 standard drink = 0.6 oz pur e alcohol) coffee: 1-2 daily PHQ-2 Answer Date Recorded Patient Health Questionnaire-2 Score 0 02/18/2025 Comments Unknown Sex and Gender Information Value Date Recorded Sex Assigned at Not on file Legal Sex Female 7:13 PM EDT Gender Identity Not on file Sexual Orientation Not on file Last Filed Vital Signs Vital Sign Reading Time Taken Comments Blood Pressure 128/70 02/18/2025 10:34 AM EDT Pulse 57 02/18/2025 10:34 AM EDT Temperature 36.6 C (97.8 F) 02/18/2025 10:34 AM EDT Respiratory Rate 20 02/18/2025 10:34 AM EDT Oxygen Saturation 95% 02/18/2025 10:34 AM EDT Inhaled Oxygen Concentration - - Weight 72.8 kg (160 lb 9.6 oz) 02/18/2025 10:34 AM EDT Height 162.6 cm (5' 4 ) 09/30/2024 10:40 AM EST Body Mass Index 27.57 09/30/2024 10:40 AM EST Plan of Treatment Upcoming Encounters Date Type Department Care Team (Late st Contact Info) Description 05/22/2025 10:30 AM EDT Office Visit [facility] [address] [place] [address] Kirstin Miller, RONNIE [address] [place] [phone] 02/23/2026 10:30 AM EDT Office Visit [facility] [address] [place] [address] Kirstin Miller, RONNIE [address] [place] [phone] Health Maintenance Due Date Last Done Comments Diabetes: Hemoglobin A1C 03/02/2025 025, 08/20/2024, 02/26/2024, Additional history exists Influenza Vaccine (#1) 2025 4, 07/25/2023, 08/08/2022, Additional history exists Diabetes: Urine Protein Screening 01/31/2026 025, 08/25/2023 Diabetes: Retinopathy Screening 12/26/2026 5, 12/19/2022 Pneumococcal Vaccine: 65+ Years Completed 6, 03/23/2015 Procedures Procedure Name Priority Date/Time Associated Diagnosis Comments TB URINE MICROSCOPIC ONLY Routine 01/31/2025 12:00 PM EDT [facility] UA (CLEAN/CATCH) MICROSCOPIC IF INDICATE Routine 01/31/2025 12:00 PM EDT [facility] MICROALB CREAT RATIO RANDOM Routine 01/31/2025 12:00 PM EDT VITAMIN B12 Routine 01/31/2025 8:56 AM EDT MLR HEMOGLOBIN A1C Routine 01/31/2025 8: 56 AM EDT ALL LIPID PROFILE (FASTING) Routine 01/31/2025 8:56 AM EDT [facility] CMP (CMP) (FOR REMOTE [facility] USE) Routine 01/31/2025 8:56 AM EDT ALL CBC WITH AUTO DIFF Routine 01/31/2025 8:56 AM EDT DIABETIC RETINOPATHY SCREENING - OU - BOTH EYES Routine 12/26/2024 10:18 AM EDT POCT GLYCOSYLATED HEMOGLOBIN (HGB A1C) Routine 12/03/2024 9:30 AM EST Type 2 diabetes mellitus without complication, without long-term current use of insulin (HCC) from Last 3 Months or Most Recently Relevant to Health Maintenance Results * (ABNORMAL) [facility] URINE MICROSCOPIC ONLY (01/31/2025 12:00 PM EDT) TBH WBC 2-5(A) NONE SEEN #/HPF TBH TBH RBC NONE SEEN 0 - 2 #/HPF TBH BACTERIA URINE TRACE(A) NONE SEEN #/HPF TBH MUCUS URINE NONE SEEN NONE SEEN TBH SQUAMOUS EPITHELIAL CELL URINE FEW(A) NONE/RARE #/LPF TBH CRYSTALS SEEN? None Seen None Seen #/HPF TBH CAST SEEN? SEEN(A) NONE SEEN #/LPF TBH HYALINE CASTS URINE RARE TBH 01/31/2025 12:0 0 PM EDT 01/31/2025 12:26 PM EDT Narrative [facility] - 01/31/2025 1:29 PM EDT us Kirstin Miller NP [facility]IS[facility] Final Result [facility] * (ABNORMAL) TBH UA (CLEAN/CATCH) MICROSCOPIC IF INDICATE (01/31/2025 12:00 PM EDT) COLOR URINE YELLOW YELLOW TBH CLARITY URINE CLEAR CLEAR TBH SPECIFIC GRAVITY URINE 1.025 1.005 - 1.025 TBH PH URINE 6.0 5.0 - 9.0 TBH PROTEIN URINE TRACE NEG/TRACE mg/dL TBH GLUCOSE URINE UA NEGATIVE NEGATIVE mg/dL TBH BILIRUBIN URINE NEGATIVE NEGATIVE TBH KETONES URINE TRACE(A) NEGATIVE mg/dL TBH BLOOD URINE NEGATIVE NEGATIVE TBH NITRITE URINE NEGATIVE NEGATIVE TBH UROBILINOGEN URINE 0.2 0.2 - 1.0 EU/dL TBH LEUKOCYTE ESTERASE URINE TRACE(A) NEGATIVE TBH URINE MICROSCOPIC INDICATED YES TBH 01/31/2025 12:0 0 PM EDT 01/31/2025 12:26 PM EDT Narrative CLINISYNC - 01/31/2025 1:29 PM EDT us Kirstin Miller NP CLINISYNC Final Result Performing Organization Address [facility] de Phone Number CLINISYUT TB * TB MICROALB CREAT RATIO RANDOM (01/31/2025 12:00 PM EDT) MICROALBUMIN URINE RANDOM 1.8 <=30.0 mg/dL TB CREATININE URINE RANDOM 186.61 20.00 - 300.00 mg/dL TB MICROALBUM CREATININE RATIO UR 9.6 0.0 - 29.9 mg/g TB Comment: NO MICROALBUMINURIA 0-29 MG/G CLINICAL MICROALBUMINURIA 30-300 MG/G MACROALBUMINURIA >300 MG/G 01/31/2025 12:0 0 PM EDT 01/31/2025 12:26 PM EDT Narrative CLINISYNC - 01/31/2025 1:02 PM EDT us Kirstin Miller NP CLINISYNC Final Result Performing Organization Address [facility] de Phone Number CLINISYUT TB * VITAMIN B12 (01/31/2025 8:56 AM EDT) VITAMIN B12 600 232 - 1245 pg/mL TBH Comment: Performed at: [facility] [id number] Taxi Proprietor: Leonidas Ivy PhD, Phone: [phone] 01/31/2025 8:56 AM EDT 01/31/2025 8:57 AM EDT Narrative CLINISYNC - 02/01/2025 4:07 AM EDT Kirstin Miller NP LAB BLOOD ORDERABLES Final Resu lt [facility]IS[facility] TB * MLR HEMOGLOBIN A1C (01/31/2025 8:56 AM EDT) GLYCOHEMOGLOBIN A1C 5.7 4.5 - 6.2 % TB Comment: ADA RECOMMENDED LIMIT 4.0 - 6.0 ADA THERAPEUTIC TARGET < 7.0 ACTION SUGGESTED > 7.0 ESTIMATED AVERAGE GLUCOSE 117 mg/dL TB 01/31/2025 8:56 AM EDT 01/31/2025 8:57 AM EDT Narrative CLINISYNC - 01/31/2025 10:28 AM EDT Kirstin Miller NP CL[facility]IS[facility]NC Final Result [facility] * (ABNORMAL) [facility] CMP (CMP) (FOR REMOTE [facility] USE) (01/31/2025 8:56 AM EDT) SODIUM 146(H) 136 - 145 mmol/L TBH POTASSIUM 4.3 3.5 - 5.1 mmol/L TBH CHLORIDE 107 98 - 107 mmol/L TBH CARBON DIOXIDE 29.5 21.0 - 32.0 mmol/L TBH ANION GAP 13.8 TBH GLUCOSE 105 74 - 106 mg/dL TBH BLOOD UREA NITROGEN 24.0(H) 7.0 - 18.0 mg/dL TBH CREATININE 1.01 0.55 - 1.02 mg/dL TBH TBH EGFR-AF BELIZEAN >60 >=60 mL/min/1. 73m 2 TBH TBH EGFR-NON AF BELIZEAN 52(L) >=60 mL/min/1. 73m 2 TBH BUN CREATININE RATIO 23.8 TBH CALCIUM 9.7 8.5 - 10.1 mg/dL TBH BILIRUBIN TOTAL 0.6 0.2 - 1.0 mg/dL TBH ASPARTATE AMINO TRANSFERASE 20 15 - 37 U/L TBH ALANINE AMINOTRANSFERASE 19 14 - 59 U/L TBH ALKALINE PHOSPHATASE 55 46 - 116 U/L TBH TOTAL PROTEIN 7.1 6.4 - 8.2 g/dL TBH ALBUMIN LEVEL 3.6 3.4 - 5.0 g/dL TBH GLOBULIN 3.5 g/dL TBH ALBUMIN GLOBULIN RATIO 1.0 TBH 01/31/2025 8:56 AM EDT 01/31/2025 8:57 AM EDT Narrative CLINISYNC - 01/31/2025 9:29 AM EDT Kirstin Miller NP CLINISYNC Final Result [facility] * (ABNORMAL) ALL LIPID PROFILE (FASTING) (01/31/2025 8:56 AM EDT) TRIGLYCERIDES 114 <=150 mg/dL TBH CHOLESTEROL 145 <=200 mg/dL TBH HDL CHOLESTEROL 62(H) 40 - 60 mg/dL TB Comment: > or =60 mg/dl - LOW CARDIOVASCULAR RISK <40 mg/dl - HIGH CARDIOVASCULAR RISK LDL CHOLESTEROL CALCULATED 61.0 mg/dL TB Comment: <100 mg/dl OPTIMAL 100-129 mg/dl NEAR OR ABOVE OPTIMAL 130-159 mg/dl BORDERLINE HIGH 160-189 mg/dl HIGH >190 mg/dl VERY HIGH VLDL CHOLESTEROL 22.8 mg/dL TB CHOL HDL RATIO 2.3 TB Comment: 3.3 - 4.4 LOW RISK 4.4 - 7.1 AVERAGE RISK 7.1 - 11.0 MODERATE RISK >11.0 HIGH RISK 01/31/2025 8:56 AM EDT 01/31/2025 8:57 AM EDT Narrative CLINISYNC - 01/31/2025 9:29 AM EDT us Kirstin Meansfredrickjaziel RONNIE CLINISYNC Final Result [facility] * (ABNORMAL) ALL CBC WITH AUTO DIFF (01/31/2025 8:56 AM EDT) [facility] TB WBC 7.7 4.0 - 11.0 10 3/uL TBH TBH RBC 4.27 4.20 - 5.40 10 6/uL TBH TBH HGB 13.0 12.0 - 16.0 g/dL TBH TBH HCT 41.9 36.0 - 48.0 % TBH TBH MCV 98.1 81.0 - 99.0 fL TBH TBH MCH 30.4 26.7 - 34.0 pg TBH TBH MCHC 31.0 29.9 - 35.2 g/dL TBH TBH RDW 13.0 11.0 - 15.0 % TBH TBH PLT 283 150 - 450 10 3/uL TBH TBH MPV 9.4(L) 9.5 - 13.5 fL TBH NEUTROPHILS PERCENT AUTO 40.3(L) 43.0 - 75.0 % TBH LYMPHOCYTES PERCENT AUTO 47.2 20.5 - 60.0 % TBH MONOCYTES PERCENT AUTO 8.3 1.7 - 12.0 % TBH TBH EO % 3.7 0.9 - 7.0 % TBH BASOPHILS PERCENT AUTO 0.4 0.2 - 2.0 % TBH IMMATURE GRANULOCYTES PCT AUTO 0.1 0.0 - 0.5 % TBH NEUTROPHILS ABSOLUTE AUTO 3.1 1.4 - 6.5 10 3/uL TBH LYMPHOCYTES ABSOLUTE AUTO 3.7 1.2 - 3.8 10 3/uL TBH MONOCYTES ABSOLUTE AUTO 0.6 0.3 - 0.8 10 3/uL TBH TBH EO # 0.3 0.0 - 0.7 10 3/uL TBH BASOPHILS ABSOLUTE AUTO 0.0 0.0 - 0.1 10 3/uL TBH IMMATURE GRANULOCYTES ABS AUTO 0.01 0.00 - 0.03 10 3/uL TBH 01/31/2025 8:56 AM EDT 01/31/2025 8:57 AM EDT Narrative CLINISYNC - 01/31/2025 9:05 AM EDT Kirstin Miller NP CLINISYNC Final Result [facility] * Diabetic Retinopathy Screening - OU - Both Eyes (12/26/2024 10:18 AM EDT) Anatomical Region Laterality Modality Head Other Kirstin Miller NP OPHTH PHOTOGRAPHY Final Result * (ABNORMAL) POCT glycosylated hemoglobin (Hb A1C) docked device (12/03/2024 9:30 AM EST) Hemoglobin A1C 5.8% Blood Venous blood specimen / Unknown 12/03/2024 9:30 AM EST Kirstin Miller NP POINT OF CARE TEST ENTER/EDIT O RDERABLES Final Result from Last 3 Months or Most Recently Relevant to Health Maintenance Insurance MEDICARE [facility] Care Teams Structural Layout Worker Relationship Specialty Start Date End Date Mike Steiner MD [address] [place] [id number] PCP - General Family Medicine 08/20/24 Kirstin Miller NP [address] [place] [phone] Nurse Practitioner Family Medicine 08/09/23
--- OUTSIDE RECORDS SUMMARY | 2025-04-19 08:33 | XMS_ITS | Clinical Summary ---
Author Organization [facility] Address [address] [place] [id number] Care Team Providers Care Catshovel Driver Name Role Phone Paul Kirstin Vitale CNP Primary Care Provider Allergies Active Allergy Reactions Criticality Noted Date Comments Morphine GI Upset Low 09/17/2024 Medications bumetanide (BUMEX) 1 mg tablet Take 0.5-1 mg by mouth once daily as needed (edema). Active ezetimibe (ZETIA) 10 mg tablet Take 10 mg by mouth once daily. Active lisinopril (ZESTRIL, PRINIVIL) 5 mg tablet Take 20 mg by mouth once daily. Active metoprolol succinate ER (TOPROL XL) 100 mg Take 100 mg by mouth once daily. Active rosuvastatin (CRESTOR) 5 mg tablet Take 5 mg by mouth once daily. Active glipiZIDE (GLUCOTROL) 5 mg tablet Take 5 mg by mouth twice daily before meals. Active spironolactone (ALDACTONE) 25 mg tablet Take 12.5 mg by mouth once daily. Active apixaban (ELIQUIS) 5 mg tab(s) Take 1 tablet by mouth twice daily. 2 Active acetaminophen (TYLENOL) 325 mg tablet 2 tablets by ORAL/FEEDING TUBE route every 4 hours as needed for pain or fever (specify). 2 Active metFORMIN (GLUCOPHAGE) 500 mg tablet Take 1 tablet by mouth twice daily with meals. [address] (PROTONIX) 40 mg tablet TAKE 1 TABLET BY MOUTH TWICE DAILY (IN THE MORNING and IN THE EVENING) BEFORE MEALS Active therapeutic multivitamin (THERA VITAMIN) tablet Take 1 tablet by mouth once daily. 5 Active cyanocobalamin (VITAMIN B-12) 1,000 mcg tab Take 1,000 mcg by mouth once daily. Active Magnesium 250 mg tab Take 250 mg by mouth once daily. Active Active Problems Problem Noted Date Diagnosed Date Endometrial polyp 10/29/2024 Assessment & Plan (11/04/2024 4:11 PM EST): - Recommended hysteroscopic removal of polyp and endometrial sampling. - Risks, benefits, and alternatives discussed with the patient. Risks including, but not limited to: bleeding, infection, injury to nearby structures (highest risk to bowel, bladder), uterine perforation as well as surgical risks of DVT, PE, HI, . All questions and concerns were addressed. Pt is willing to accept a blood transfusion in the case of excessive blood loss. She is agreeable to Exam under anesthesia, operative hysteroscopy, dilation and curettage, polypectomy, possible blood transfusion and informed consent was obtained. - Will need cardiology clearance, courtney foss. Will attempted to reach out to Dr. Roberson to make him aware. Pt has an appointment with him in the coming weeks. Orders: SURGICAL REQUEST - ELECTIVE (05/2020) Endocervical polyp 10/29/2024 Thickened endometrium 10/29/2024 Abnormal ultrasound of endometrium 10/29/2024 Vitamin B12 deficiency 10/21/2024 Cellulitis of foot 10/18/2024 Weight loss 10/18/2024 Diarrhea 10/18/2024 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 10/18/2024 Delirium due to another medical condition 2024 Malnutrition of moderate degree 10/17/2024 Abdominal pain 10/16/2024 Assessment & Plan (10/16/2024 9:27 PM EST): - Presents with mild lower abdominal pain - CT ABD/PEL did not show any acute process other than endometrial thickening - Pain control with Tylenol PRN Constipation 04/02/2022 Assessment & Plan (04/05/2022 12:45 PM EDT): Assessment: POA PLAN: Currently: resolved Assessment & Plan (04/04/2022 11:53 AM EDT): Assessment: POA PLAN: Currently: resolved Assessment & Plan (04/02/2022 1:08 PM EDT): Assessment: POA PLAN: Currently: Colace, senna, mom, recent fleet, cotton seed enema Right leg weakness 03/29/2022 Assessment & Plan (04/06/2022 11:20 AM EDT): Assessment: POA PLAN: Distal > proximal Appreciate PT/OT evaluation. Assessment & Plan (04/05/2022 12:45 PM EDT): Assessment: POA PLAN: Distal > proximal Appreciate PT/OT evaluation. Assessment & Plan (04/04/2022 11:52 AM EDT): Assessment: POA PLAN: Distal > proximal Appreciate PT/OT evaluation. Assessment & Plan (04/03/2022 5:15 PM EDT): Assessment: POA PLAN: Distal > proximal Appreciate PT/OT evaluation. Assessment & Plan (04/02/2022 1:06 PM EDT): Assessment: POA PLAN: Distal > proximal Appreciate PT/OT evaluation. Assessment & Plan (03/30/2022 12:03 PM EDT): Assessment: POA PLAN: Distal > proximal Appreciate PT/OT evaluation. Assessment & Plan (03/29/2022 12:54 PM EDT): Assessment: POA PLAN: Distal > proximal Appreciate PT/OT evaluation. HLD (hyperlipidemia) 03/29/2022 Assessment & Plan (11/15/2024 3:46 PM EST): Assessment: takes Vic Stewart, stable Assessment & Plan (04/06/2022 11:20 AM EDT): Assessment: POA PLAN: Continue home medication Assessment & Plan (04/05/2022 12:45 PM EDT): Assessment: POA PLAN: Continue home medication Assessment & Plan (04/04/2022 11:52 AM EDT): Assessment: POA PLAN: Continue home medication Assessment & Plan (03/30/2022 12:03 PM EDT): Assessment: POA PLAN: Continue home medication Assessment & Plan (03/29/2022 12:54 PM EDT): Assessment: POA PLAN: Continue home medication Foot drop, right foot 03/29/2022 Assessment & Plan (04/06/2022 11:20 AM EDT): Assessment: POA PLAN: No improved yet s/p surgery AFO ordered and at the bedside Appreciate PT/OT evaluation Assessment & Plan (04/05/2022 12:45 PM EDT): Assessment: POA PLAN: No improved yet s/p surgery AFO ordered and at the bedside Appreciate PT/OT evaluation Assessment & Plan (04/04/2022 11:52 AM EDT): Assessment: POA PLAN: No improved yet s/p surgery AFO ordered Appreciate PT/OT evaluation Assessment & Plan (04/03/2022 5:15 PM EDT): Assessment: POA PLAN: No improved yet s/p surgery AFO ordered Appreciate PT/OT evaluation Assessment & Plan (04/02/2022 1:06 PM EDT): Assessment: POA PLAN: No improved yet s/p surgery AFO ordered Appreciate PT/OT evaluation Assessment & Plan (03/30/2022 12:03 PM EDT): Assessment: POA PLAN: OR on Appreciate PT/OT evaluation Assessment & Plan (03/29/2022 12:59 PM EDT): Assessment: POA PLAN: OR on Appreciate PT/OT evaluation Atrial fibrillation 03/29/2022 Assessment & Plan (11/15/2024 3:43 PM EST): Assessment: takes Eliquis daily, will stop 2 days pre op,currently stable Assessment & Plan (10/16/2024 11:03 PM EST): - Currently in sinus rhythm - Continue SURFACE LOGGING SYSTEMS LOGGER Eliquis and metoprolol - Tele order Assessment & Plan (04/06/2022 11:20 AM EDT): Assessment: POA PLAN: Will place telemetry eliquis held since 03/24 per patient Will restart 10 days after surgery- MondayApril 10 Assessment & Plan (04/05/2022 12:46 PM EDT): Assessment: POA PLAN: Will place telemetry eliquis held since 03/24 per patient Will restart 10 days after surgery- MondayApril 10 Assessment & Plan (04/04/2022 11:53 AM EDT): Assessment: POA PLAN: Will place telemetry eliquis held since 03/24 per patient Will restart 10 days after surgery- MondayApril 10 Assessment & Plan (04/03/2022 5:16 PM EDT): Assessment: POA PLAN: Will place telemetry eliquis held since 03/24 per patient Will restart 10 days after surgery- MondayApril 10 Assessment & Plan (04/02/2022 1:07 PM EDT): Assessment: POA PLAN: Will place telemetry eliquis held since 03/24 per patient Will restart 10 days after surgery- MondayApril 10 Assessment & Plan (03/30/2022 12:03 PM EDT): Assessment: POA PLAN: Will place telemetry eliquis held since 03/24 per patient Will restart 10 days after surgery Assessment & Plan (03/29/2022 1:00 PM EDT): Assessment: POA PLAN: Will place telemetry eliquis held since 03/24 per patient Benign essential HTN 03/29/2022 Assessment & Plan (11/15/2024 3:44 PM EST): Assessment: takes Lisinopril,Metoprolol,stable BP 147/56 taken at [facility] visit 11/15/24 Assessment & Plan (04/06/2022 11:20 AM EDT): Assessment: POA PLAN: Continue home regimen of lisinopril 5mg Qday + metoprolol ER 100mg Qday Assessment & Plan (04/05/2022 12:45 PM EDT): Assessment: POA PLAN: Continue home regimen of lisinopril 5mg Qday + metoprolol ER 100mg Qday Assessment & Plan (04/04/2022 11:53 AM EDT): Assessment: POA PLAN: Continue home regimen of lisinopril 5mg Qday + metoprolol ER 100mg Qday Assessment & Plan (04/03/2022 5:16 PM EDT): Assessment: POA PLAN: Continue home regimen of lisinopril 5mg Qday + metoprolol ER 100mg Qday Assessment & Plan (04/02/2022 1:07 PM EDT): Assessment: POA PLAN: Continue home regimen of lisinopril 5mg Qday + metoprolol ER 100mg Qday Assessment & Plan (03/30/2022 12:03 PM EDT): Assessment: POA PLAN: Continue home regimen of lisinopril 5mg Qday + metoprolol ER 100mg Qday Assessment & Plan (03/29/2022 1:02 PM EDT): Assessment: POA PLAN: Continue home regimen of lisinopril 5mg Qday + metoprolol ER 100mg Qday DM type 2 (diabetes mellitus, type 2) 03/29/2022 Assessment & Plan (11/15/2024 3:46 PM EST): Assessment: takes Metformin,Glipizide currently stable Glucose Date Value Ref Range Status 10/20/2024 135 (H) 74 - 99 mg/dL Final Comment: The [place] [employer] Association (ADA) provides guidance for cutoff [...] Standards of Medical Care in Diabetes 2016, [place] [employer]. Diabetes Care. 2016.39(Suppl 1). Assessment & Plan (10/16/2024 11:03 PM EST): - Blood glucose 127 in the ED - Continue SURFACE LOGGING SYSTEMS LOGGER metformin and glipizide - SSI - Carb controlled diet Assessment & Plan (04/06/2022 11:20 AM EDT): Assessment: POA PLAN: Will resume home metformin (BID) and glipizide SS1 Assessment & Plan (04/05/2022 12:45 PM EDT): Assessment: POA PLAN: Will resume home metformin and glipizide SS1 Assessment & Plan (04/04/2022 11:53 AM EDT): Assessment: POA PLAN: Will resume home metformin and glipizide SS1 Assessment & Plan (04/03/2022 5:15 PM EDT): Assessment: POA PLAN: Hold metformin and glipizide SS1 Assessment & Plan (03/30/2022 12:03 PM EDT): Assessment: POA PLAN: Hold metformin and glipizide SS1 Assessment & Plan (03/29/2022 1:03 PM EDT): Assessment: POA PLAN: Hold metformin and glipizide SS1 Spinal stenosis 03/28/2022 Assessment & Plan (04/06/2022 11:20 AM EDT): Assessment: POA PLAN: L3-L5 laminectomhy on 03/31/[address] Jamison Overall doing well Drain removed SQH POD #2 Pain controlled Appreciate PT/OT and PMR- anticipated d/c to [facility] on Assessment & Plan (04/05/2022 12:45 PM EDT): Assessment: POA PLAN: L3-L5 laminectomhy on 03/31/[address] Jamison Overall doing well Drain removed SQH POD #2 Pain controlled Appreciate PT/OT and PMR- anticipated d/c to [facility] on Assessment & Plan (04/04/2022 11:52 AM EDT): Assessment: POA PLAN: L3-L5 laminectomhy on 03/31/[address] Jamison Overall doing well Drain removed SQH POD #2 Pain controlled Appreciate PT/OT and PMR- anticipated d/c to [facility] on Monday Assessment & Plan (04/03/2022 5:15 PM EDT): Assessment: POA PLAN: L3-L5 laminectomhy on 03/31/[address] Jamison Overall doing well Drain removed SQH POD #2 Pain controlled Appreciate PT/OT and PMR- anticipated d/c to [facility] on Monday Assessment & Plan (04/02/2022 1:06 PM EDT): Assessment: POA PLAN: L3-L5 laminectomhy on 03/31/[address] Jamison Overall doing well Monitor gilmer outpt- most likely d/c tomorrow [facility] POD #2 Pain controll- toradol added for worsened right dorsal foot pain Appreciate PT/OT and PMR- anticipated d/c to [facility] on Monday Assessment & Plan (03/30/2022 12:03 PM EDT): Assessment: POA PLAN: Anticipated lumbar surgery on 03/31/[address] Jamison Assessment & Plan (03/29/2022 12:53 PM EDT): Assessment: POA PLAN: Anticipated lumbar surgery on 03/31/[address] Jamison CAD (coronary artery disease) Assessment & Plan (11/15/2024 3:45 PM EST): Assessment: had LAD stent placed 2005 followed per [employer] Dr. Roberson Resolved Problems Problem Noted Date Diagnosed Date Resolved Date Altered mental status 10/16/20242024 Assessment & Plan (10/17/2024 5:17 AM EST): - Presents with AMS over the last 3 days - Previous MRI of brain 1 month ago when pt had similar symptoms to today showed no acute process with chronic ischemic changes - Lab work is unremarkable, UA is negative - There are no focal deficits on exam, no sensory or motor deficits - Utox ordered - Fall and delirium precautions - Tele order - Care Management consult - Neurology Consult, appreciate involvement Immunizations Immunization Administration Dates Next Due influenza (HD-IIV3) vaccine, age 65+ yr, high dose, trivalent, PF (FLUZONE HIGH-DOSE) 07/22/2024,07/28/2017 influenza (HD-IIV4) vaccine, age 65+ yr, high dose, quadrivalent, PF (FLUZONE HIGH-DOSE) 07/25/2023,08/08/2022 influenza (IIV4) vaccine, ag e 6 mo - 64 yr, quadrivalent, PF (AFLURIA, FLUARIX, FLULAVAL, FLUZONE) 06/06/2020 influenza (RIV4) vaccine, re combinant, quadrivalent, PF (FLUBLOK) 07/18/2019 influenza (aIIV3) vaccine, a ge 65+ yr, trivalent, PF (FLUAD) 07/25/2018 influenza (aIIV4) vaccine, a ge 65+ yr, quadrivalent, PF (FLUAD QUAD) 07/16/2021 pneumococcal conjugate (PCV1 3) vaccine, 13 valent (PREVNAR 13) 03/23/2015 pneumococcal polysaccharide (PPV23) vaccine, 23 valent (PNEUMOVAX 23) 07/26/2016 Family History Medical History Relation Comments Ischemic Heart Disease Father Ischemic Heart Disease Mother Relation Status Comments Father Mother Social History Tobacco Use Types Packs/Day Years Used Date Smoking Tobacco: Never Passive Smoke Exposure: Never Smokeless Tobacco: Never Tobacco Cessation:Counseling Given: Not Answered Alcohol Use Standard Drinks/Week Comments Never 0 (1 standard drink = 0.6 oz pur e alcohol) [facility] Utilities Answer Date Recorded In the past 12 months has th e [employer], gas, oil, or water Convene threatened to shut off services in your home? No 10/17/2024 Hunger Vital Sign Answer Date Recorded Within the past 12 months, y ou worried that your food would run out before you got the money to buy more. Never true 10/17/19 25 Within the past 12 months, t he food you bought just didn't last and you didn't have money to get more. Never true 10/17/2024 PRAPARE - Transportation Answer Date Re corded In the past 12 months, has l ack of transportation kept you from medical appointments or from getting medications? No 06/2025 In the past 12 months, has l ack of transportation kept you from meetings, work, or from getting things needed for daily living? No 10/17/2024 Housing Stability Vital Sign Answer Jovany e Recorded In the last 12 months, was t here a time when you were not able to pay the mortgage or rent on time? No 10/17/2024 In the past 12 months, how m any times have you moved where you were living? 1 10/17/2024 At any time in the past 12 m [facility], were you homeless or living in a fpc (including now)? No 10/17/2024 Area Deprivation Index Answer Date Terry rded National Score (1-100), lower number is lower ri sk 63 10/17/2024 State Score (1-10), lower number is lower risk 4 10/17/2024 Data from: https://www.neighborhoodatlas.medicine.[facility].edu/. Last address used for calculation [address] 10/17/2024 Comments No Sex and Gender Information Value Date Recorded Sex Assigned at Female 11/02/2024 3:37 PM EST Legal Sex Female 8:39 PM EDT Gender Identity Female 11/02/2024 3:37 PM EST Sexual Orientation Not on file Last Filed Vital Signs Vital Sign Reading Time Taken Comments Blood Pressure 167/74 01/17/2025 10:18 AM EDT Pulse 62 01/17/2025 10:18 AM EDT Temperature 36.4 C (97.5 F) 12/06/2024 10:19 AM EST Respiratory Rate 18 12/06/2024 10:00 AM EST Oxygen Saturation 99% 01/17/2025 10:18 AM EDT Inhaled Oxygen Concentration - - Weight 73.1 kg (161 lb 2.5 oz) 01/17/2025 10:18 AM EDT Height 167.6 cm (5' 6 ) 12/17/2024 8:54 AM EDT Body Mass Index 26.01 12/17/2024 8:54 AM EDT Plan of Treatment Health Maintenance Due Date Last Done Comments Diabetic Foot Exam 1950 Dilated Retinal Exam 1950 Urine Albumin:Creatinine Ratio 1950 Anxiety Screening 1958 Depression Screening 1958 LDL Cholesterol 1958 DTaP,Tdap,Td Vaccine (1 - Tdap) 1959 Shingrix Vaccine (1 of 2) 1990 Medicare Annual Wellness Visit 10/09/2005 Bone Density Screening 2005 RSV Vaccine (1 - 1-dose 75+ series) 2015 Covid-19 Vaccine (2023-2 5 season) 2024 08/12/2022, 04/26/2022, 07/23/2021, Additional history exists Advance Directive Discussion 10/09/2024 HbA1C 06/02/2025 12/03/2024, 08/20/2024 Influenza Vaccine (#1) 2025 4, 07/25/2023, 08/08/2022, Additional history exists Pneumococcal Vaccine: 50+ Completed 07/26/2016, [address] [place] [address] MEDICARE Member Subscriber Plan / Payer (Ef fective 2005-Present) Name:Bhumika Sarabia Member ID:[id number] Relation to Subscriber:Self Name:Bhumika Sarabia Subscriber ID:[id number] Payer ID:Not on file Group ID:Not on file Type:Medicare Address: [address] Advance Directives * Full Code (Latest Code Status on File) Date Activated Date Inactivated Comments 10/16/2024 8:19 PM 10/21/2024 9:41 PM Question Answer Comments Full Code Order Discussed With: Discussion Not M edically Appropriate * Full Code Date Activated Date Inactivated Comments 03/28/2022 5:55 PM 04/07/2022 4:54 PM Question Answer Comments Full Code Order Discussed With: Patient Care Teams Catshovel Driver Relationship Specialty Start Date End Date Kirstin Miller, RADIAL [employer] OPERATOR [employer] [id number] [place] [address] PCP - General Family Medicine 10/16/24
--- OUTSIDE RECORDS SUMMARY | 2025-04-19 08:33 | XMS_ITS | Encounter Summary ---
Author Organization [facility] Address [address] [place] [address] Care Team Providers Care Account Manager Employee Benefits Name Role Phone Mike Steiner MD Primary Care Provider [phone] Kirstin Miller NP Unavailable [phone] Mike Steiner MD Primary Care Provider [phone] Encounter Details Date Type Department Care Team (Late st Contact Info) Description 02/15/2024 Clinisync Result Encounter [facility] External Department Unsolicited Provider, Generic External Data Social History Tobacco Use Types Packs/Day Years [...] on file documented as of this encounter Functional Status * Over the past 2 weeks, how often have you been bothered by any of the following problems? Question Answer Date of Assessment Author Little interest or pleasure in doing things Not at all 02/15/2024 4:46 PM EDT CAROLE GARCIA Feeling down, depressed, or hopeless Not at all 02/15/2024 4:46 PM EDT CAROLE GARCIA Patient Health Questionnaire -2 Score 0 02/15/2024 4:46 PM EDT CAROLE GARCIA * Question Answer Date of Assessment Author Trouble falling or staying asleep, or sleeping too much Not at all 02/15/2024 4:46 PM EDT FELIPE CAMPOS Feeling tired or having little energy Several days 02/15/2024 4:46 PM CAROLE MCNAMARA Poor appetite or overeating Not at all 02/15/2024 4: 46 PM FELIPE MCNAMARA Feeling bad about yourself - or that you are a failure or have let yourself or your family down Not at all 02/15/2024 4:46 PM CAROLE MCNAMARA Trouble concentrating on things, such as reading the newspaper or watching television Not at all 02/15/2024 4:46 PM CAROLE MCNAMARA Moving or speaking so slowly that other people could have noticed? Or the opposite - being so fidgety or restless that you have been moving around a lot more than usual. Not at all 02/15/2024 4:46 PM HUYT FELIPE CAMPOS Thoughts that you would be better off or hurting yourself in some way Not at all 02/15/2024 4:46 PM JOAN MCNAMARA Patient Health Questionnaire-9 Score 1 02/15/2024 4:46 PM SUHA MCNAMARA SHA * How difficult have these problems made it for you to do your work, take care of things at home, or get along with other people? Answer Date of Assessment Author Not difficult at all 02/15/2024 4:46 PM HUYT FELIPE CARLTON * Geriatric Depression Scale (Short Version) Question Answer Date of Assessment Author Are you basically satisfied with your life? Yes 02/15/2024 4:49 PM CAROLE MCNAMARA Have you dropped many of you r activities and interests? No 02/15/2024 4:49 PM FELIPE MCNAMARA Do you feel that your life is empty? No 06/2024 4:49 PM FELIPE MCNAMARA Do you often get bored? No 02/15/2024 4:49 P M FELIPE MCNAMARA Are you in good spirits most of the time? Yes 02/15/2024 4:49 PM CAROLE MCNAMARA Are you afraid that somethin g bad is going to happen to you? No 02/15/2024 4:49 PM EDT BRANDAN GARCIA Do you feel happy most of the time? Yes 02/14 4:49 PM EDT FELIPE GARCIA Do you often feel helpless? No 02/15/2024 4: 49 PM EDT CAROLE GARCIAA Do you prefer to stay at [facility], rather than going out and doing new things? Yes 02/15/2024 4:49 PM EDT CAROLE GARCIA Do you feel you have more pr oblems with memory than most? No 02/15/2024 4:49 PM EDT JUN GARCIA Do you think it is wonderful to be alive now? Yes 02/15/2024 4:49 PM EDT CAROLE GARCIA Do you feel pretty worthless the way you are now? No 02/15/2024 4:49 PM EDT CAROLE GARCIA Do you feel full of energy? Yes 02/15/2024 4: 49 PM EDT FELIPE GARCIA Do you feel that your situat ion is hopeless? No 02/15/2024 4:49 PM EDT CAROLE GARCIA Do you think that most peopl e are better off than you are? No 02/15/2024 4:49 PM EDT Janet GARCIA Geriatric Depression Scale ( Short Version) Total 1 02/15/2024 4:49 PM EDT CAROLE GARCIA documented as of this encounter Plan of Treatment Upcoming Encounters Date Type Department Care Team (Late st Contact Info) Description 05/22/2025 10:30 AM EDT Office Visit [facility] [address] [place] [address] Kirstin Miller NP [address] [place] [address] 02/23/2026 10:30 AM EDT Office Visit [facility] [address] [place] [address] Kirstin Miller NP [address] [place] [address] documented as of this encounter Procedures Procedure Name Priority Date/Time Associated Diagnosis Comments CA ECHO DOPPLER COMPLETE 02/15/2024 5:50 PM EDT documented in this encounter Results * CA ECHO DOPPLER COMPLETE (02/15/2024 5:50 PM EDT) Anatomical Region Laterality Modality Other 02/15/2024 5:50 PM EDT Narrative 02/15/2024 5:52 PM EDT [address] [address] Cardiology Report Signed Patient: SAEED JOHNSON MR#: [id number] : 1940 Acct:[id number] Age/Sex: 83 / F ADM Date: 02/15/24 Loc: CARD Attending Dr: MONI ROBERSON Ordering Physician: MONI ROBERSON Date of Service: 02/15/24 Procedure(s): CA echo doppler complete Accession Number(s): [id number] cc: Kirstin Miller ZYGLO INSPECTOR; MONI ROBERSON Patient Name: SAEED JOHNSON MR#: [id number] : 1940 Exam Date: 02/15/2024 Ordering Doctor: DR MONI ROBERSON M.D. ECHOCARDIOGRAM REPORT PROCEDURE: CA ECHO DOPPLER COMPLETE INDICATIONS: Diastolic heart failure, hypertension, diabetes COMPARISON: None. DESCRIPTION: COMPLETE ECHOCARDIOGRAM Real-time transthoracic echocardiography with 2D, M-mode, spectral and color flow Doppler performed. QUALITY: Technical quality was good. 66 , 160#, BSA 1.82 m2, BP 148/86 LEFT VENTRICLE: Normal chamber size. Mild concentric left ventricular hypertrophy. Normal systolic function. LV EF: Normal left ventricular ejection fraction, (>55%). DIASTOLIC: Diastolic function is indeterminate. ATRIAL SEPTUM: Visually appears intact. LEFT ATRIUM: Moderate dilatation. RIGHT ATRIUM: Mild dilatation. RIGHT VENTRICLE: Normal chamber size. Normal right ventricular systolic function. TRICUSPID VALVE: Normal mobility and thickness. No stenosis with trivial regurgitation. No evidence of pulmonary hypertension. RVSP 30 mmHg MITRAL VALVE: Normal mobility and thickness. No evidence of mitral valve stenosis. Mild mitral annular calcification. Trivial mitral regurgitation. AORTIC VALVE: Normal trileaflet appearance. Mildly calcified aortic valve. Normal leaflet mobility. No evidence of aortic valve stenosis. No aortic regurgitation. AORTIC ROOT: Normal diameter and appearance. Ascending aorta is normal in size. PULMONIC VALVE: Normal thickness and mobility. No stenosis. Trivial regurgitation. PERICARDIUM: No evidence of pericardial effusion. IVC: Collapses with inspirations. IVC is normal in size. PLEURA: CONCLUSION: 1. Mild concentric left ventricular hypertrophy with normal systolic function. LVEF is 55-60%. 2. Normal right ventricular size and systolic function. 3. No significant valvular dysfunction. 4. Normal right sided pressures. 5. Mild to moderate biatrial dilatation. Adult Echocardiography Procedure Report Left Ventricle LVEDD (3.7 - 5.6 cm): 4.68 cm LVESD (2.2 - 4.0 cm): 3.63 cm LVIVS thickness (0.6 - 1.2 cm): 1.09 cm LVPW thickness (0.5 - 1.0 cm): 1.08 cm e': 0.07 m/s E - e': 10.52 LVOT Max Gradient: 4.78 mm[Hg] LVOT Area (cm2): 1.09 m/s Peak Velocity (LVOT): 1.09 m/s Mean Velocity (LVOT): 0.69 m/s LVOT Diameter 2.14 cm Left Atrium LA Volume Index (2D A2C): 42.18 ml/m2 Left Atrium Systolic Dimension: 3.97 cm Mitral Valve MV E to A Ratio: 0.64 Mitral Valve A-Wave Peak Velocity: 1.08 m/s Mitral Valve E-Wave Peak Velocity: 0.70 m/s Right Ventricle Aorta AO Root Diam: 2.92 cm Ascending Ao Diam: 3.02 cm Aortic Valve AoV Area (Peak Gianni): 2.53 cm2, 2.57 cm2 AoV Area (VTI): 2.49 cm2, 2.51 cm2 Peak Velocity(Antegrade Flow): 1.53 m/s, 1.55 m/s Peak Gradient(Antegrade Flow): 9.33 mm[Hg], 9.64 mm[Hg] Mean Velocity(Antegrade Flow): 1.07 m/s, 1.09 m/s Mean Gradient(Antegrade Flow): 5.27 mm[Hg], 5.41 mm[Hg] Velocity Time Integral: 40.31 cm, 40.74 cm Tricuspid Valve Peak Velocity (Regurgitant Flow): 2.58 m/s Pulmonic Valve Peak Velocity: 0.79 m/s Peak Gradient: 2.50 mm[Hg] Right Atrium Right Atrium Systolic Pressure: 39.72 ml, 39.72 ml Dictated by: Moni Roberson M.D. on 02/15/2024 at 17:44 Approved by: Moni Roberson M.D. on 02/15/2024 at 17:50 Dictated By: MONI ROBERSON Signed By: 02/15/241751 DD/ 49 TD/TT: Continuing Education Instructor: Procedure Note Radiology, Radiologist, MD - 02/15/2024 [place] [address] Cardiology Report Signed Patient: SAEED JOHNSON SMR#: [id number] : 1940cct:[id number] Age/Sex: 83 / FADM Date: 02/15/24 Loc: CARD Attending Dr: MONI ROBERSON Ordering Physician: MONI ROBERSON Date of Service: 02/15/24 Procedure(s): CA echo doppler complete Accession Number(s): [id number] cc: Kirstin Miller ZYGLO INSPECTOR; MONI ROBERSON Patient Name: SAEED JOHNSON MR#: [id number] : 1940 Exam Date: 02/15/2024 Ordering Doctor: DR MONI ROBERSON M.D. ECHOCARDIOGRAM REPORT PROCEDURE: CA ECHO DOPPLER COMPLETE INDICATIONS: Diastolic heart failure, hypertension, diabetes COMPARISON: None. DESCRIPTION: COMPLETE ECHOCARDIOGRAM Real-time transthoracic echocardiography with 2D, M-mode, spectral and color flow Dopplerperformed. QUALITY: Technical quality was good. 66 , 160#, BSA 1.82 m2, BP148/86 LEFT VENTRICLE: Normal chamber size. Mild concentric left ventricular hypertrophy. Normal systolic function. LV EF: Normal left ventricular ejection fraction, (>55%). DIASTOLIC: Diastolic function is indeterminate. ATRIAL SEPTUM: Visually appears intact. LEFT ATRIUM: Moderate dilatation. RIGHT ATRIUM: Mild dilatation. RIGHT VENTRICLE: Normal chamber size. Normal right ventricularsystolic function. TRICUSPID VALVE: Normal mobility and thickness. No stenosis withtrivial regurgitation. No evidence of pulmonary hypertension. RVSP 30 mmHg MITRAL VALVE: Normal mobility and thickness. No evidence of mitralvalve stenosis. Mild mitral annular calcification. Trivial mitralregurgitation. AORTIC VALVE: Normal trileaflet appearance. Mildly calcified aorticvalve. Normal leaflet mobility. No evidence of aortic valve stenosis. No aortic regurgitation. AORTIC ROOT: Normal diameter and appearance. Ascending aorta is normalin size. PULMONIC VALVE: Normal thickness and mobility. No stenosis. Trivial regurgitation. PERICARDIUM: No evidence of pericardial effusion. IVC: Collapses with inspirations. IVC is normal in size. PLEURA: CONCLUSION: 1. Mild concentric left ventricular hypertrophy with normal systolicfunction. LVEF is 55-60%. 2. Normal right ventricular size and systolic function. 3. No significant valvular dysfunction. 4. Normal right sided pressures. 5. Mild to moderate biatrial dilatation. Adult Echocardiography Procedure Report Left Ventricle LVEDD (3.7 - 5.6 cm): 4.68 cm LVESD (2.2 - 4.0 cm): 3.63 cm LVIVS thickness (0.6 - 1.2 cm): 1.09 cm LVPW thickness (0.5 - 1.0 cm): 1.08 cm e': 0.07 m/s E - e': 10.52 LVOT Max Gradient: 4.78 mm[Hg] LVOT Area (cm2): 1.09 m/s Peak Velocity (LVOT): 1.09 m/s Mean Velocity (LVOT): 0.69 m/s LVOT Diameter 2.14 cm Left Atrium LA Volume Index (2D A2C): 42.18 ml/m2 Left Atrium Systolic Dimension: 3.97 cm Mitral Valve MV E to A Ratio: 0.64 Mitral Valve A-Wave Peak Velocity: 1.08 m/s Mitral Valve E-Wave Peak Velocity: 0.70 m/s Right Ventricle Aorta AO Root Diam: 2.92 cm Ascending Ao Diam: 3.02 cm Aortic Valve AoV Area (Peak Gianni): 2.53 cm2, 2.57 cm2 AoV Area (VTI): 2.49 cm2, 2.51 cm2 Peak Velocity(Antegrade Flow): 1.53 m/s, 1.55 m/s Peak Gradient(Antegrade Flow): 9.33 mm[Hg], 9.64 mm[Hg] Mean Velocity(Antegrade Flow): 1.07 m/s, 1.09 m/s Mean Gradient(Antegrade Flow): 5.27 mm[Hg], 5.41 mm[Hg] Velocity Time Integral: 40.31 cm, 40.74 cm Tricuspid Valve Peak Velocity (Regurgitant Flow): 2.58 m/s Pulmonic Valve Peak Velocity: 0.79 m/s Peak Gradient: 2.50 mm[Hg] Right Atrium Right Atrium Systolic Pressure: 39.72 ml, 39.72 ml Dictated by: Moni Roberson M.D. on 02/15/2024 at 17:44 Approved by: Moni Roberson M.D. on 02/15/2024 at 17:50 Dictated By: MONI ROBERSON Signed By:02/15/241751 DD/ 49 TD/TT: Continuing Education Instructor: us Generic External Data Provider [facility] Final Result documented in this encounter Visit Diagnoses Not on filedocumented in this encounter Additional Health Concerns Assessment Noted Time PHQ-9 Depression Total Score: 1 02/15/20 4:46 PM EDT documented as of this encounter Care Teams Account Manager Employee Benefits Relationship Specialty Start Date End Date Mike Steiner MD PCP - General Family Medicine 08/09/23 08/19/24 Mike Steiner MD [address] [place] [address] PCP - General Family Medicine 08/20/24 Kirstin Miller NP [address] [place] [phone] Nurse Practitioner Family Medicine 08/09/23 documented as of this encounter
--- OUTSIDE RECORDS SUMMARY | 2025-04-19 08:33 | XMS_ITS | Encounter Summary ---
Author Organization [facility] Address [address] [facility] [place] [address] Care Team Providers Care Tool Pusher Name Role Phone Mike Steiner MD Primary Care Provider [phone] Kirstin Miller FIELD SERVICE REPRESENTATIVE Unavailable [phone] Mike Steiner MD Primary Care Provider [phone] Encounter Details Date Type Department Care Team (Late st Contact Info) Description 02/16/2024 Orders Only [facility] [address] [facility] [address] [place] [phone] Jose Roberson MD [address] [place] [address] Social History Tobacco Use Types Packs/Day Years [...] 05/22/2025 10:30 AM EDT Office Visit [facility] [address] [place] [address] Kirstin Miller NP [address] [place] [address] 02/23/2026 10:30 AM EDT Office Visit [facility] [address] [place] [phone] Kirstin Miller, RONNIE [address] [place] [phone] documented as of this encounter Procedures Procedure Name Priority Date/Time Associated Diagnosis Comments ECHO TRANSTHORACIC W/ DOPPLER Routine 02/15/2024 11:18 AM EDT documented in this encounter Results * ECHO TRANSTHORACIC W/ DOPPLER (02/15/2024 11:18 AM EDT) Anatomical Region Laterality Modality Radiographic Daniella ging us Jose Roberson MD IMG XR PROCEDURES Final Resu lt documented in this encounter Visit Diagnoses Not on filedocumented in this encounter Additional Health Concerns Assessment Noted Time PHQ-9 Depression Total Score: 1 02/15/20 24 4:46 PM EDT documented as of this encounter Care Teams Tool Pusher Relationship Specialty Start Date End Date Mike Steiner MD PCP - General Family Medicine 08/09/23 08/19/24 Mike Steiner MD [address] [place] [phone] PCP - General Family Medicine 08/20/24 Kirstin Miller NP [address] [place] [phone] Nurse Practitioner Family Medicine 08/09/23 documented as of this encounter
--- OUTSIDE RECORDS SUMMARY | 2025-04-19 08:33 | XMS_ITS | Encounter Summary ---
Author Organization [facility] Address [address] [place] [address] Care Team Providers Care Roadside Mechanic Name Role Phone Paul Kirstin Vitale CNP Primary Care Provider [phone] Source Comments In the event this information is protected by the Federal Confidentiality of Alcohol and Drug AbusePatient Records regulations: The Federal rules restrict any use of the information to criminally investigate or prosecute any alcohol or drug abuse patient.[facility] Encounter Details Date Type Department Care Team (Late st Contact Info) Description 11/29/2024 Get Medical Advice Obstetrics/Gynecology [address] [place] [address] Provider, [facility] Procedure on 12/06 Social History Tobacco Use Types Packs/Day Years Used Date Smoking Tobacco: Never Passive Smoke Exposure: Never Smokeless Tobacco: Never Alcohol Use Standard Drinks/Week Comments Never 0 (1 standard drink = 0.6 oz pur e alcohol) [facility] Utilities Answer Date Recorded In the past 12 months has [employer], [employer], or [employer] threatened to shut off services in your [...] any time in the past 12 m ont, were you homeless or living in a assisted (including now)? No 10/17/2024 Area Deprivation Index Answer Date Terry rded National Score (1-100), lower number is lower ri sk 63 10/17/2024 State Score (1-10), lower number is lower risk 4 10/17/2024 Data from: https://www.neighborhoodatlas.medicine.[facility].edu/. Last address used for calculation [address] 10/17/2024 Comments No Sex and Gender Information Value Date Recorded Sex Assigned at Female 11/02/2024 3:37 PM EST Legal Sex Female 8:39 PM EDT Gender Identity Female 11/02/2024 3:37 PM EST Sexual Orientation Not on file documented as of this encounter Functional Status * Are you deaf or do you have serious difficulty hearing? Answer Date of Assessment Author No 10/21/2024 6:01 PM Sergio Longo RN * Are you blind or do you have serious difficulty seeing, even when wearing glasses? Answer Date of Assessment Author No 10/21/2024 6:01 PM Sergio Longo RN * Do you have serious difficulty walking or climbing stairs? Answer Date of Assessment Author No 10/21/2024 6:01 PM Sergio oLngo RN * Do you have difficulty dressing or bathing? Answer Date of Assessment Author No 10/21/2024 6:01 PM Sergio Longo RN * Because of a physical, mental, or emotional condition, do you have difficulty doing errands alone such as visiting a doctor's office or shopping? Answer Date of Assessment Author No 10/21/2024 6:01 PM Sergio Longo RN documented as of this encounter Mental Status * Because of a physical, mental, or emotional condition, do you have serious difficulty concentrating, remembering, or making decisions? Answer Entry Date Author No 10/21/2024 6:01 PM Sergio Longo RN documented in this encounter Plan of Treatment Not on file documented as of this encounter Visit Diagnoses Not on filedocumented in this encounter Care Teams Roadside Mechanic Relationship Specialty Start Date End Date Kirstin Miller CNP [address] [place] [address] PCP - General Family Medicine 10/16/24 documented as of this encounter
--- OUTSIDE RECORDS SUMMARY | 2025-04-19 08:33 | XMS_ITS | Clinical Summary ---
Author Organization [facility] Address [address] [place] [address] Care Team Providers Care Fund Raiser Name Role Phone Kirstin Miller MD Primary Care Provider [phone] Allergies Active Allergy Reactions Criticality Noted Date Comments Morphine Nausea Only,GI intolerance Low 09/17/2024 narcotics cause vomiting Medications glipiZIDE (Glucotrol) 5 mg tablet Take 1 tablet by mouth in the morning and at bedtime. Active metFORMIN (Glucophage) 1,000 mg tablet Take 1 tablet by mouth in the morning and at bedtime. Active bumetanide (Bumex) 1 mg tabletIndication s:Chronic diastolic congestive heart failure (CMS/HCC) Take 1 tablet (1 mg) by mouth if needed (leg swelling and dyspnea). 90 tablet 3 4 Active pantoprazole (ProtoNix) 40 mg EC tabletIndication s:Acute gastric ulcer without hemorrhage or perforation Take 1 tablet (40 mg) by mouth before breakfast and before evening meal for 196 doses. Do not crush, chew, or split. 60 tablet 3 4 Active polyethylene glycol (Glycolax) 17 gram/dose powderIndication s:Screening for malignant neoplasm of colon Use as directed for colonoscopy prep. Follow Physician's instructions. 238 g 5 Active bisacodyl (Dulcolax) 5 mg EC tabletIndication s:Screening for malignant neoplasm of colon Do not crush, chew, or split. Use as directed for colonoscopy prep. Follow Physician's instructions. 4 tablet 5 Active apixaban (Eliquis) 5 mg tabletIndication s:Paroxysmal atrial fibrillation (CMS/HCC) Take 1 tablet (5 mg) by mouth in the morning and at bedtime. 180 tablet 3 5 Active ezetimibe (Zetia) 10 mg tabletIndication s:Coronary artery disease involving [place] coronary artery of [place] heart without angina pectoris Take 1 tablet (10 mg) by mouth once daily as directed. 90 tablet 3 5 11/07/19 26 Active lisinopril 20 mg tabletIndication s:Primary hypertension Take 1 tablet (20 mg) by mouth once daily as directed. 90 tablet 3 5 11/07/19 26 Active metoprolol succinate XL (Toprol-XL) 100 mg 24 hr tabletIndication s:Coronary artery disease involving [place] coronary artery of [place] heart without angina pectoris Take 1 tablet (100 mg) by mouth once daily as directed. 90 tablet 3 5 Active rosuvastatin (Crestor) 5 mg tabletIndication s:Coronary artery disease involving [place] coronary artery of [place] heart without angina pectoris Take 1 tablet (5 mg) by mouth at bedtime. 90 tablet 3 5 Active spironolactone (Aldactone) 25 mg tabletIndication s:Primary hypertension TAKE 1/2 (ONE-HALF) OF A TABLET BY MOUTH EVERY DAY 45 tablet 3 5 Active nitroglycerin (Nitrostat) 0.4 mg SL tabletIndication s:Coronary artery disease involving [place] coronary artery of [place] heart without angina pectoris Place 1 tablet (0.4 mg) under the tongue every 5 (five) minutes if needed for chest pain. 25 tablet 3 5 Active Additional Information Patient not taking.Reported on 11/13/2024 Active Problems Problem Noted Date Diagnosed Date Type 2 diabetes mellitus wit h diabetic peripheral angiopathy without gangrene 10/30/2024 Abnormal ultrasound of endometrium 10/29/2024 Endocervical polyp 10/29/2024 Endometrial polyp 10/29/2024 Vitamin B12 deficiency 10/21/2024 Cellulitis of foot 10/18/2024 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 10/18/2024 Delirium due to another medical condition 2024 Diarrhea 10/18/2024 Weight loss 10/18/2024 Malnutrition of moderate degree 10/17/2024 Altered mental status 10/16/2024 Overview (11/07/2024): Had MRI brain at [facility] 09/19/24: mod periventricular FLAIR hyperintensities (chronic microvascular ischemia), seq of non acute lacunar infarct right centrum semiovale Non-recurrent acute suppurat shaina otitis media of right ear without spontaneous rupture of tympanic membrane 10/10/2024 Other acute sinusitis 10/10/2024 Acute gastric ulcer without hemorrhage or perfor ation 09/30/2024 Overview (11/07/2024): EGD at [facility] 10/01 mild LA grade A esophagitis, 2 small ulcers Thickened endometrium 09/30/2024 Acute abdominal pain 09/17/2024 Assessment & Plan (09/17/2024 9:19 PM EST): Relevant Hx: CT scan completed at [facility] on 09/17/24 indicated cholecystitis and cholelithiasis Today's Plan: Discussed with Dr. Lombardi, not clear that her abdominal pain is due to acute cholecystitis as lipase, bilirubin, WBC are all WNL and physical exam findings do not correlate well with cholecystitis. Will have CT imaging of abdomen transferred from [facility] and order HIDA scan to further evaluate, as well as obtain ionized calcium, magnesium, and phosphorus labs. Recommend medicine admit and NPO status while waiting for HIDA scan. No associated orders from this encounter found during lookback period of 72 hours. Acute metabolic encephalopathy 09/17/2024 Acute cholecystitis 09/17/2024 Cholelithiasis 09/17/2024 Vaginal yeast infection 08/30/2024 Hypernatremia 08/23/2024 Other thrombophilia 08/20/2024 Peripheral vascular disease, unspecified 024 Type 2 diabetes mellitus wit h diabetic neuropathy, unspecified 08/20/2024 Abnormal thyroid blood test 02/15/2024 [address] for subsequent [facility] wellness visit (AWV) in Medicare patient 02/15/2024 Constipation 04/02/2022 Overview (01/05/2023): Last Assessment & Plan: Assessment: POA PLAN: Currently: resolved Foot drop, right foot 03/29/2022 Overview (01/05/2023): Last Assessment & Plan: Assessment: POA PLAN: No improved yet s/p surgery AFO ordered and at the bedside Appreciate PT/OT evaluation Right leg weakness 03/29/2022 Overview (01/05/2023): Last Assessment & Plan: Assessment: POA PLAN: Distal > proximal Appreciate PT/OT evaluation. Spinal stenosis 03/28/2022 Overview (01/05/2023): Last Assessment & Plan: Assessment: POA PLAN: L3-L5 laminectomhy on 03/31/[address] Jamison Overall doing well Drain removed SQH POD #2 Pain controlled Appreciate PT/OT and PMR- anticipated d/c to [facility] on Coronary arteriosclerosis 11/17/2021 Diastolic heart failure 01/17/2014 Atrial fibrillation 02/01/2012 Essential hypertension 02/01/2012 Hyperlipidemia 02/01/2012 Mitral valve regurgitation 02/01/2012 Type 2 diabetes mellitus without complication Immunizations Immunization Administration Dates Next Due Covid ([employer]) Bivalent Abbie ter =>12 YRS 08/12/2022 Influenza, High Dose Seasona l, Preservative Free 07/28/2017 Influenza, High-dose Seasona l, Quadrivalent, Preservative Free 08/08/2022 Influenza, Seasonal, Quadriv alent, Adjuvanted 07/16/2021 Influenza, injectable, quadr ivalent, preservative free 06/06/2020 Influenza, recombinant, quad rivalent, injectable, preservative free 07/18/2019 Influenza, trivalent, adjuvanted 07/25/2018 Pfizer SARS-CoV-2 Vaccination 04/26/2022 ,07/23/2021,12/03/2020,11/11 Pneumococcal Conjugate PCV 13 03/23/2015 Pneumococcal Polysaccharide PPV23 07/26/2016 Family History Medical History Relation Name Comments Coronary artery disease Father Heart attack Father Coronary artery disease Mother Heart attack Mother Multiple sclerosis Sister Relation Name Status Comments Father Mother Sister Social History Tobacco Use Types Packs/Day Years Used Date Smoking Tobacco: Never Smokeless Tobacco: Never Tobacco Cessation:Counseling Given: Not Answered Alcohol Use Standard Drinks/Week Comments Not Currently 0 (1 standard drink = 0.6 oz pur e alcohol) [facility] Utilities Answer Date Recorded In the past 12 months has th e [employer], gas, oil, or water spotflux threatened to shut off services in your home? Patient unable to answer 09/18/2024 Humiliation, Afraid, Rape, a nd Kick questionnaire Answer Date Recorded Within the last year, have y ou been afraid of your partner or ex-partner? Patient unable to answer 09/18/2024 Emotionally Abused Not on file 09/18/2024 Physically Abused Not on file 09/18/2024 Sexually Abused Not on file 09/18/2024 Overall Financial Resource Strain (CARDIA) Answe r Date Recorded How hard is it for you to pa y for the very basics like food, housing, medical care, and heating? Patient unable to answer 09/18/2024 Transportation Answer Date Recorded In the past 12 months, has l ack of transportation kept you from medical appointments or from getting medications? Patient unable to answer 09/18/2024 Lack of Transportation (Non-Medical) Not on file 09/18/2024 Housing Stability Vital Sign Answer Jovany e Recorded In the last 12 months, was t here a time when you were not able to pay the mortgage or rent on time? Patient unable to answer 09/18/2024 Number of Times Moved in the Last Year Not on fi le 09/18/2024 At any time in the past [address] [facility], were you homeless or living in a intermediate (including now)? Patient unable to answer 09/18/2024 Hunger Vital Sign Answer Date Recorded Within the past 12 months, y ou worried that your food would run out before you got the money to buy more. Patient unable to answer 09/18/2024 Ran Out of Food in the Last Year Not on file 09/18/2024 Comments No Sex and Gender Information Value Date Recorded Sex Assigned at Female 09/17/2024 9:18 PM EST Legal Sex Female 10:17 PM EDT Gender Identity Female 09/17/2024 9:18 PM EST Sexual Orientation Heterosexual or Straight 09/08 9:18 PM EST Last Filed Vital Signs Vital Sign Reading Time Taken Comments Blood Pressure 122/53 11/13/2024 12:05 PM EST Pulse 66 11/13/2024 12:05 PM EST Temperature 36.2 C (97.2 F) 11/13/2024 11:50 AM EST Respiratory Rate 16 11/13/2024 12:05 PM EST Oxygen Saturation 98% 11/13/2024 12:05 PM EST Inhaled Oxygen Concentration - - Weight 69.2 kg (152 lb 8.9 oz) 11/13/2024 9:40 A M EST Height 157.5 cm (5' 2 ) 11/13/2024 9:40 AM EST Body Mass Index 27.9 11/13/2024 9:40 AM EST Plan of Treatment Health Maintenance Due Date Last Done Comments Diabetes: Hemoglobin A1C 1940 Medicare Annual Wellness (AWV) 1940 Diabetes: Retinopathy Screening 1950 Depression Screening 1952 Diabetes: Urine Protein Screening 1959 Adult Tetanus 1962 Zoster Vaccines (1 of 2) 1990 COVID-19 Vaccine ( season) 2024 07/22/2024, 07/25/2023, 08/12/2022, Additional history exists Influenza Vaccine (#1) 2025 , 07/25/2023, 08/08/2022, Additional history exists Fall Risk Screening 09/21/2025 09/21/2024 Pneumococcal Vaccine: 50+ Years Completed 07/26/2016, 03/23/2015 HIB Vaccines Aged Out No longer eligi ble based on patient's age to complete this topic HPV Vaccines Aged Out No longer eligi ble based on patient's age to complete this topic IPV Vaccines Aged Out No longer eligi ble based on patient's age to complete this topic Meningococcal B Vaccine Aged Out No l onger eligible based on patient's age to complete this topic Meningococcal Vaccine Aged Out No michael quynh eligible based on patient's age to complete this topic Rotavirus Vaccines Aged Out No longer eligible based on patient's age to complete this topic Insurance MEDICARE [facility] Advance Directives * Full Code (Latest Code Status on File) Date Activated Date Inactivated Comments 09/17/2024 10:17 PM 09/21/2024 4:43 PM Care Teams Fund Raiser Relationship Specialty Start Date End Date Kirstin Miller MD [address] [place] [address] PCP - General 01/16/23
[2025-04-19 08:35] VITALS: BP 173/66; PULSE 62; TEMP 37.3; O2SAT 98; BMI 25.0
--- OUTSIDE RECORDS SUMMARY | 2025-04-19 08:35 | XMS_ITS | CCD ---
Author Organization [facility] Care Team Providers Care Photographic Laboratory Technician Name Role Phone MD Atul Vera Attending Provider NON STAFF Primary Care Provider UnavailDO Howard Lennon Emergency Provider Galindo Miller Primary Care Provider [phone] MD Perlita Davis Admit Provider Al MD Perlita Pennington Attending Provider [phone] DO Colby Astorga Other Provider MD Rupert Anthony Attending Provider [phone] Atul Vera Unavailable MARGARETTE LINCOLN Attending Unavailable MARGARETTE LINCOLN Admitting Unavailable MD Kingston Gao Admit Provider MD Kingston Gao Attending Provider [phone] ELFEGO Dowling Other Provider Unavailable ELFEGO Winston Other Provider Unavailable ELFEGO Wahl Other Provider Unavailable ELFEGO Moise Other Provider Unavailable ELFEGO Marc Other Provider Unavailable ELFEGO Campbell Other Provider Unavailable ELFEGO Buck Other Provider Unavailable MD Cyndee Aguirre Other Provider MD Shadi Chahal Other Provider OMID Lorenz Other Provider DO Shelby Landrum Other Provider MD Kieran Scott Other Provider [phone] DO Jayesh Clark Other Provider MD Justyn Spann Other Provider MD Mayra Saha Other Provider Rubia ANP-BC Selma Other Provider MD Lizette Pickard Other Provider MD Poli Collins Other Provider MD Andrea Muñoz Other Provider MD Jay Barrientos Other Provider DO Annelise Vila Other Provider Unavailable MD Nitin Patel Other Provider MD Abilio Shafer Other Provider MD Gladys Cash Other Provider MD Dwight Kelley Other Provider Bailey PIECE GOODS CLERK-Carlos Pleitez Other Provider MD Saulo Dukes Other [...] Other Provider Unavailable Unavailable Primary Care Provider UnavailMD Atul Thompson Attending Provider [phone] Galindo Miller Primary Care Provider [phone] Unavailable Primary Care Provider Unavailabl e Unavailable Primary Care Provider Unavailabl e AICHHOLZ, LAUNDRY AIDE GALINDO Primary Care Unavailable DR SHEILA INIGUEZ V Consulting Unavailable AICHHOLZ, LAUNDRY AIDE GALINDO Admitting Unavailable AICHHOLZ, LAUNDRY AIDE GALINDO Attending Unavailable AICHHOLZ, LAUNDRY AIDE GALINDO Consulting Unavailable AICHHOLZ, LAUNDRY AIDE GALINDO Primary Care Unavailable AICHHOLZ, LAUNDRY AIDE GALINDO Admitting Unavailable AICHHOLZ, LAUNDRY AIDE GALINDO Attending Unavailable AICHHOLZ, LAUNDRY AIDE GALINDO Consulting Unavailable AICHHOLZ, LAUNDRY AIDE GALINDO Primary Care Unavailable AICHHOLZ, LAUNDRY AIDE GALINDO Admitting Unavailable AICHHOLZ, LAUNDRY AIDE GALINDO Attending Unavailable AICHHOLZ, LAUNDRY AIDE GALINDO Primary Care Unavailable MISC, DOCTOR Attending Unavailable MISC, DOCTOR Admitting Unavailable AICHHOLZ, LAUNDRY AIDE GALINDO Primary Care Unavailable AICHHOLZ, LAUNDRY AIDE GALINDO Admitting Unavailable AICHHOLZ, LAUNDRY AIDE GALINDO Attending Unavailable AICHHOLZ, LAUNDRY AIDE GALINDO Consulting Unavailable AICHHOLZ, LAUNDRY AIDE GALINDO Primary Care Unavailable DR SHEILA INIGUEZ V Consulting Unavailable AICHHOLZ, LAUNDRY AIDE GALINDO Admitting Unavailable AICHHOLZ, LAUNDRY AIDE GALINDO Attending Unavailable AICHHOLZ, LAUNDRY AIDE GALINDO Consulting Unavailable Atul Vera P Admitting Unavailable NON STAFF Primary Care Unavailable Atul Vera Attending Unavailable NON STAFF Primary Care Unavailable Atul Vera P Admitting Unavailable Atul Vera P Attending Unavailable Aichholz, Galindo J Primary Care Unavailable Al Perlita Pennington Admitting Unavailab Rupert Joseph Attending Unavailable Colby Astorga Consulting Unavailable Aichholz, Galindo J Primary Care Unavailable Kingston Gao Admitting Unavailable Kingston Gao Attending Unavailable Dinah Dowling Consulting Unavailable Rachna Winston Consulting Unavailable Giselle Wahl Consulting Unavailable Gloria Moise Consulting Unavailable Lucia Marc Consulting Unavailable Courtney Campbell Consulting Unavailable Cindy Buck Consulting Unavailable Cyndee Aguirre Consulting Unavailable Shadi Chahal Consulting Unavailable Galindo Lorenz M Consulting Unavailable Shelby Landrum Consulting Unavailable Tyler, Kieran Consulting Unavailable Jayesh Clark Consulting UnavailJustyn Sanches Consulting Unavailable Mayra Saha Consulting Unavailable Selma Barkley Consulting Unavailable Lizette Pickard Consulting Unavailable Poli Collins Consulting Unavailable Andrea Muñoz Consulting Unavailable Jay Barrientos Consulting Unavailable Annelise Vila Consulting Unavailable Nitin Patel Consulting Unavailable Abilio Shafer Consulting Unavailable Gladys Cash Consulting Unavailable Dwight Kelley Consulting Unavailable Debbie Avalos Consulting Unavailable DoSaulo lopez Consulting Unavailab quinten Mendel, Abel Consulting Unavailable Jesu Mcmanus Consulting Unavailable MoonAnn-Marie tobar Consulting Unavailable Raj, Rupert Consulting Unavailable Ghadrian Hillman, Sandeep Consulting Jacquelin Letty Gómez Consulting Unavailable Perlita Davis Consulting Unavailab Jr Almeida Consulting Unavailable MiniAdis schroeder Consulting Unavailable Obika, Sarai Consulting Unavailable Cm Zarco Consulting Unavailable Daromar, Obaydah M Consulting Unavailable Lexie Hudson Consulting Unavailable Paul Galindo Pricilla Primary Care Unavailable Atul Vera Attending Unavailable Atul Vera Admitting Unavailable Mike Steiner MD Primary Care Provider Brimegan PIECE GOODS CLERK, Galindo Unavailable Mike Steiner MD Primary Care Provider Paul LAUNDRY AIDE, Galindo Vitale Primary Care Provider JOSE ROBERSON Attending Unavailable ANNELISE PIEREC Referring Unavailable RITIKA, MIRRA Referring Unavailable SANDOVAL, DANIA Referring Unavailable SHELLY RICKS Attending Unavailable KAYLEIGH RIVERA Referring Unavailable BRADFORD DAVIS Admitting Unavailable BRADFORD DAVIS Attending Unavailable NITIN ROBERTS Referring Unavailable ANNELISE PIERCE Referring Unavailable JOSE ROBERSON Attending Unavailable DOMINIQUE, EDMUNDO Referring Unavailable RODNEY, BONAVENTURE Admitting Unavailable KAYLEIGH RIVERA Attending Unavailable GALINDO MILLER Primary Care Unavailable CAYLA EDWARD Attending Unavailable NED TERAN Referring Unavailable AL THOMPSON Attending Unavailable ATUL MARTIN Admitting Unavailable AICHHOLZ, GALINDO CURTIS Primary Care Unavailable ROSIE IZAGUIRRE Consulting Unavailable AICHHOLZ, GALINDO CURTIS Primary Care Unavailable HIRZEL, LUCIANA M Attending Unavailable HIRZEL, LUCIANA M Admitting Unavailable BRENDON DORSEY Attending Unavailable AICHHOLZ, GALINDO CURTIS Primary Care Unavailable HIRZEL, LUCIANA M Referring Unavailable AICHHOLZ, GALINDO CURTIS Primary Care Unavailable HIRZEL, LUCIANA M Attending Unavailable AICHHOLZ, GALINDO CURTIS Primary Care Unavailable SELF Referring Unavailable ROLANDA CHAPARRO Referring Unavailable AICHHOLZ, GALINDO CURTIS Primary Care Unavailable DINORA CARROLL Attending Unavailable HIRZEL, LUCIANA M Attending Unavailable AICHHOLZ, GALINDO CURTIS Primary Care Unavailable MAXINE SINGH Referring Unavailable AICHHOLZ, GALINDO CURTIS Primary Care Unavailable HIRZEL, LUCIANA M Referring Unavailable AICHHOLZ, AGLINDO CURTIS Primary Care Unavailable HIRZEL, LUCIANA M Attending Unavailable AICHHOLZ, GALINDO CURTIS Primary Care Unavailable AICHHOLZ, GALINDO Attending Unavailable AICHHOLZ, GALINDO Attending Unavailable AICHHOLZ, GALINDO Attending Unavailable AICHHOLZ, GALINDO Attending Unavailable AICHHOLZ, GALINDO Attending Unavailable AICHHOLZ, GALINDO Attending Unavailable Allergies Allergy Classification Reported Allergen(s) Allergy Type Date of Onset Reaction(s) Facility (20 sources) Morphine; Translations: [MORPHINE] Drug Allergy 4 GI intolerance, Nausea Only, GI Upset [facility] Work Phone: Medications Current Medications Medication Drug Class(es) Dates Sig (Normalized) Sig (Original) acetaminophen 500 mg oral tablet (20 sources) Start: 04-14-2022 take 500 mg by mouth every four hours Acetaminophen Active 500 MG PO Q4H 100 30 April 14, 2022 3:08pm Start: 04-04-2022 take 2 tablets enter al route every four hours as needed acetaminophen (TYLENOL) 325 mg tablet 2 tablets by ORAL/FEEDING TUBE route every 4 hours as needed for pain or fever (specify). 04/04/2022 Active Start: 04-04-2022 take 2 tablets by mo [...] PO Q4H 1 April 14, 2022 3:08pm amoxicillin 500 mg oral capsule (1 source) Penicillin-class Antibacterial Start: 08-30-20 End: 09-09-20 take 1 capsule by mouth in the morning amoxicillin (Amoxil) 500 MG capsule Indications: UTI symptoms Take 1 capsule (500 mg) by mouth in the morning and 1 capsule (500 mg) before bedtime. Do all this for 10 days. 20 capsule 08/30/2024 09/09/2024 Active amoxicillin 875 mg / clavulanate 125 mg oral tablet (2 sources) Penicillin-class Antibacterial Start: 10-10-19 End: 10-20-19 take 1 tablet by mouth in the morning amoxicillin-clavulan ate (Augmentin) 875-125 MG tablet Indications: Non-recurrent acute suppurative otitis media of right ear without spontaneous rupture of tympanic membrane Take 1 tablet (875 mg) by mouth in the morning and 1 tablet (875 mg) before bedtime. Do all this for 10 days. 20 tablet 10/10/2024 10/20/2024 Active apixaban 5 mg oral tablet (20 sources) Factor Xa Inhibitor Start: 03-09-20 End: 04-14-20 take 1 tablet by mouth twice daily apixaban (ELIQUIS) 5 mg tab(s) Take 1 tablet by mouth twice daily. 04/10/2022 Active Comment on above: Take 1 tablet by papa th twice daily. atorvastatin 40 mg oral tablet (2 sources) HMG-CoA Reductase Inhibitor Start: 04-14-20 take 40 mg by mouth once daily Atorvastatin Active 40 MG PO Daily April 14, 2022 3:08pm Blood Glucose Monitoring Suppl (True Metrix Meter) w/Device kit (3 sources) Start: 12-05-19 Blood Glucose Monitoring Suppl (True Metrix Meter) w/Device kit USE DIRECTED 12/05/2024 Active bumetanide 1 mg oral tablet (20 sources) Loop Diuretic Start: 02-02-20 take 1 tablet by mouth every twenty-four [...] Three times daily April 14, 2022 3:08pm docusate sodium 100 mg oral capsule (13 sources) Start: 04-04-20 take 1 capsule by mouth twice daily docusate sodium (COLACE) 100 mg capsule Take 1 capsule by mouth twice daily. 04/04/2022 Active Comment on above: Take [address] [facility] twice daily. fluconazole 150 mg oral tablet (20 sources) Azole Antifungal Start: 08-30-20 fluconazole (Diflucan) 150 MG tablet Indications: Vaginal yeast infection Take 1 dose, then repeat in 3 days 2 tablet 08/30/2024 Active gabapentin 100 mg oral capsule (20 sources) Anti-epileptic Agent Start: 03-09-20 End: 10-24-19 take 100 mg by mouth three times daily Gabapentin Active 100 MG PO Three times daily April 14, 2022 12:00am take 1 capsule by mo ut every twenty-four hours Gabapentin 100 MG 1 capsule Orally Once a day Active Comment on above: Take 100 mg by mouth three times daily. glipiZIDE 5 mg oral tablet (20 sources) Sulfonylurea Start: 4 End: take 1 tablet by mouth in the morning glipiZIDE (Glucotrol) 5 MG tablet Indications: Type 2 diabetes mellitus without complications Take 1 tablet (5 mg) by mouth in the morning and 1 tablet (5 mg) in the evening. Take before meals. 180 tablet 1 02/18/2025 05/19/2025 Active Start: 03-09-2022 End: 04-14-2022 take 5 mg by mouth twice daily at mealtime Glipizide Active 5 MG PO Twice daily with meals 60 April 14, 2022 12:00am Comment on above: Take 5 mg by mouth t wice daily before meals. lidocaine 0.04 mg/mg medicated patch (15 sources) Antiarrhythmic, Amide Local Anesthetic Start: 04-14-2022 apply 1 dose topically once daily Lidocaine (Lidocaine Pain Relief) 4 % Adhesive Patch,Medicated Active 2 PATCH TOPICAL Daily 60 April 14, 2022 3:08pm Start: 04-05-2022 lidocaine (OFE ONPAS) 4 % patch Apply 2 Patches as directed once daily. 04/05/2022 Active Comment on above: Apply 2 Patches as d irected once daily. lisinopril 20 mg oral tablet (20 sources) Angiotensin Converting Enzyme Inhibitor Start: End: take 1 tablet by mouth in the morning lisinopril 20 MG tablet Take 20 mg by mouth in the morning. 02/02/2024 Active Start: 03-09-2022 End: 04-14-2022 take 5 mg by mouth once daily Lisinopril Active 5 MG P O Daily April 14, 2022 12:00am take 4 tablets by mo uth once daily lisinopril (ZESTRIL, PRINIVIL) 5 mg tablet Take 20 mg by mouth once daily. Active Comment on above: Take 5 mg by mouth o nce daily. Magnesium (20 sources) take 250 mg by mouth in the morning MAGNESIUM PO Take 250 mg by mouth in the morning. Active take 1 tablet by mouth once suma y Magnesium 250 mg tab Take 250 mg by mouth once daily. Active metFORMIN hydrochloride 1000 mg oral tablet (20 sources) Biguanide Start: 05-22-2024 End: 05-19-2025 take 1 tablet by mouth in the morning metFORMIN (Glucophage) 1000 MG tablet Indications: Type 2 diabetes mellitus without complications Take 1 tablet (1,000 mg) by mouth in the morning and 1 tablet (1,000 mg) in the evening. Take with meals. 180 tablet 1 02/18/2025 05/19/2025 Active Start: 04-07-2022 take 1 tablet by papa th twice daily at mealtime metFORMIN (GLUCOPHAGE) 500 mg tablet Take 1 tablet by mouth twice daily with meals. 04/07/2022 Active Start: 03-09-2022 take 1000 mg by mout h twice daily Metformin Active 1000 MG PO Twice daily March 09, 2022 2:30pm Start: 03-09-2022 End: 04-14-2022 take 500 mg by mouth twice daily Metformin Discontinue d 500 MG PO Twice daily March 09, 2022 2:30pm April 14, 2022 3:13pm Comment on above: Take 1 tablet by papa th twice daily with meals. methocarbamol 750 mg oral tablet (15 sources) Muscle Relaxant Start: End: take 1 tablet by mouth every eight hours as needed methocarbamol (ROBAXIN) 750 mg tablet Take 1 tablet by mouth three times daily as needed. 04/04/2022 Active Comment on above: Take 1 tablet by papa th three times daily as needed. 24 hr metoprolol succinate 100 mg extended release oral tablet (20 sources) beta-Adrenergic Donna Start: End: 2 take 100 mg by mouth once daily [...] Take 100 mg by mouth once daily. Multiple Vitamins-Minerals (Oncovite) tablet (14 sources) Start: 10-21-19 take 1 tablet by mouth in the morning Multiple Vitamins-Minerals (Oncovite) tablet Take 1 tablet by mouth in the morning. 10/21/2024 Active nitroglycerin 0.4 mg sublingual tablet (13 sources) Nitrate Vasodilator Start: 11-07-19 nitroglycerin (Nitrostat) 0.[address] 0.4 mg under the tongue 11/07/2024 Active End: 11-12-2024 nitroglycerin (Nitrostat) 0. [address] 0.4 mg under the tongue every 5 (five) minutes if needed for chest pain 08/20/2024 Discontinued (Therapy completed) pantoprazole 40 mg delayed release oral tablet (20 sources) Proton Pump Inhibitor Start: 09-21-2024 End: 05-19-2025 take 1 tablet by mouth in the morning pantoprazole (ProtoNix) 40 MG EC tablet Indications: Acute gastric ulcer without hemorrhage or perforation Take 1 tablet (40 mg) by mouth in the morning and 1 tablet (40 mg) in the evening. Take before meals. 180 tablet 1 02/18/2025 05/19/2025 Active spironolactone 25 mg oral tablet (20 sources) Aldosterone Antagonist Start: 03-09-2022 End: 04-14-2022 take 12.5 mg by mouth once daily Spironolactone Active 12.5 MG PO Daily April 14, 2022 12:00am take 1 tablet by mouth once spir onolactone (Aldactone) 25 MG tablet Take 25 mg by mouth 1 (one) time Active spironolactone ( ALDACTONE) 25 mg tablet Take 12.5 mg by mouth once daily. Active Comment on above: Take 12.5 mg by mout h once daily. therapeutic multivitamin (THERA VITAMIN) tablet (14 sources) Start: take 1 tablet by mouth once daily therapeutic multivitamin (THERA VITAMIN) tablet Take 1 tablet by mouth once daily. 10/21/2024 Active vitamin b12 1 mg oral tablet (20 sources) Vitamin B12 take 1 tablet by mouth in the morning cyanocobalamin (Vitamin B-12) 1000 MCG tablet Take 1,000 mcg by mouth in the morning. Active Completed/Discontinued Medications Medication Drug Class(es) Dates Sig (Normalized) Sig (Original) alendronic acid 70 mg oral tablet (5 sources) Bisphosphonate End: 08-20-2024 alendronate (Fosamax) 70 MG tablet Take 70 mg by mouth every 7 (seven) days 08/20/2024 Discontinued (Therapy completed) celecoxib 200 mg oral capsule (11 sources) Nonsteroidal Anti-inflammatory Drug Start: 03-09-2022 End: 08-20-2024 take 200 mg by mouth once daily Celecoxib Discontinued 200 MG PO Daily March 09, 2022 2:30pm April 07, 2022 3:44pm ezetimibe 10 mg oral tablet (20 sources) Dietary Cholesterol Absorption Inhibitor Start: 03-09-2022 End: 04-14-2022 take 10 mg by mouth once daily Ezetimibe Discontinued 10 MG PO Daily March 09, 2022 2:30pm April 14, 2022 3:13pm Comment on above: Take 10 mg by mouth once daily. glucose 0.45 mg/mg oral gel (14 sources) Start: 04-04-2022 End: 10-24-2024 dextrose (TRUEPLUS) 15 gram/32 mL oral gel Take 32 mL by mouth as needed. 04/04/2022 10/24/2024 Discontinued Comment on above: Take 32 mL by mouth as needed. rosuvastatin calcium 5 mg oral tablet (20 [...] foot] Onset: 03-23-2022 Resolved: 03-23-2022 03-23-2022 Episodic Calculus of urinary tract (1 source) Calculus of kidney; Translations: [Nephrolithiasis] Onset: 10-16-2024 Episodic Cardiac dysrhythmias (20 sources) Atrial fibrillation; Translations: [Unspecified atrial fibrillation] Onset: 02-01-2012 03-28-2022 Chronic Coagulation and hemorrhagic disorders (20 sources) Thrombophilia; Translations: [Other thrombophilia] Onset: 08-20-2024 08-20-2024 Chronic Conduction disorders (2 sources) Left bundle-branch block, unspecified; Translations: [Left bundle-branch block, unspecified] Onset: 11-07-2024 Chronic Congestive heart failure; nonhypertensive (20 sources) Diastolic heart failure; Translations: [Unspecified diastolic (congestive) heart failure] Onset: 01-17-2014 02-15-2024 Chronic Coronary atherosclerosis and other heart disease (20 sources) Coronary arteriosclerosis; Translations: [Atherosclerotic heart disease of [place] coronary artery without angina pectoris] Onset: 11-17-2021 03-28-2022 Chronic Delirium, dementia, and amnestic and other cognitive disorders (20 sources) Delirium; Translations: [Delirium due to known physiological condition] Onset: 10-18-2024 10-21-2024 Chronic Diabetes mellitus with complications (20 sources) 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 [...] [Essential (primary) hypertension] Onset: 02-01-2012 03-28-2022 Chronic Gastroduodenal ulcer (except hemorrhage) (20 sources) Acute gastric ulcer without hemorrhage AND without perforation; Translations: [Acute gastric ulcer without hemorrhage or perforation] Onset: 09-17-2024 09-30-2024 Episodic Heart valve disorders (20 sources) Mitral valve regurgitation; Translations: [Nonrheumatic mitral (valve) insufficiency] Onset: 02-01-2012 02-15-2024 Chronic Malaise and fatigue (3 sources) Weakness; Translations: [WEAKNESS] Onset: 02-10-2022 Episodic Nutritional deficiencies (20 sources) Malnutrition (calorie); Translations: [Moderate protein-calorie malnutrition] Onset: 10-17-2024 10-18-2024 Chronic Other acquired deformities (1 source) Scoliosis of lumbar spine; Translations: [Other forms of scoliosis, lumbar region] Chronic Other aftercare (1 source) Surgical follow-up; Translations: [Encounter for follow-up examination after completed treatment for conditions other than malignant neoplasm] 12-17-2024 Episodic Other female genital disorders (1 source) Endometrial hyperplasia, unspecified; Translations: [Endometrial hyperplasia] Onset: 10-16-2024 Chronic Other nervous system disorders (20 sources) Metabolic encephalopathy; Translations: [Metabolic encephalopathy] Onset: 09-17-2024 09-30-2024 Chronic Other nervous system disorders (20 sources) Complex regional pain syndrome type I of right lower limb; Translations: [Complex regional pain syndrome I of right lower limb] Onset: 10-18-2024 10-18-2024 Chronic Other nervous system disorders (1 source) Impaired cognition; Translations: [Other symptoms and signs involving cognitive functions and awareness] 10-29-2024 Episodic Other nutritional; endocrine; and metabolic disorders (20 sources) Weight loss; Translations: [Abnormal weight loss] Onset: 10-18-2024 10-18-2024 Episodic Other nutritional; endocrine; and metabolic disorders (1 source) Anorexia; Translations: [Decreased appetite] Onset: 10-16-2024 Episodic Other nutritional; endocrine; and metabolic disorders (1 source) Unintentional weight loss; Translations: [Abnormal weight loss] 01-17-2025 Episodic Other screening for suspected conditions (not mental disorders or infectious disease) (20 sources) Endometrium thickened; Translations: [Abnormal findings on diagnostic imaging of other specified body structures] Onset: 09-30-2024 09-30-2024 Chronic Peripheral and visceral atherosclerosis (20 sources) Peripheral vascular disease, unspecified; Translations: [Peripheral vascular disease] Onset: 02-16-2022 08-20-2024 Chronic Residual codes; unclassified (2 sources) History of lumbar laminectomy; Translations: [Other specified postprocedural states] 04-08-2022 Episodic Residual codes; unclassified (1 source) Confusional state; Translations: [Disorientation, unspecified] 10-16-2024 Episodic Residual codes; unclassified (1 source) Altered mental status, unspecified; Translations: [Altered mental status, unspecified altered mental status type] Onset: 10-16-2024 Episodic Spondylosis; intervertebral disc disorders; other back [...] Classification Problem Date Documented Da te Episodic/Chronic Abdominal pain (20 sources) Abdominal pain; Translations: [Unspecified abdominal pain] Onset: 09-17-2024 10-16-2024 Episodic Administrative/social admission (5 sources) Other reduced mobility; Translations: [Impaired mobility and activities of daily living] Onset: 04-07-2022 04-08-2022 Episodic Biliary tract disease (20 sources) Acute cholecystitis; Translations: [Acute cholecystitis] Onset: 09-17-2024 09-30-2024 Episodic Fluid and electrolyte disorders (20 sources) Hypernatremia; Translations: [Hyperosmolality and hypernatremia] Onset: 08-23-2024 08-23-2024 Episodic Genitourinary symptoms and ill-defined conditions (20 sources) Urinary symptoms ; Translations: [Unspecified symptoms and signs involving the genitourinary system] Onset: 08-30-2024 Resolved: 09-30-2024 08-30-2024 Episodic Mood disorders (20 sources) Mood disorders Onset: 02-15-2024 Resolved: 02-18-2025 02-15-2024 Mycoses (20 sources) Candidiasis of vagina; Translations: [Vaginal yeast infection] Onset: 08-30-2024 08-30-2024 Episodic Nutritional deficiencies (20 sources) Cobalamin deficiency; Translations: [Deficiency of other specified B group vitamins] Onset: 10-21-2024 10-21-2024 Episodic Other connective tissue disease (13 sources) Weakness of right leg; Translations: [Other symptoms and signs involving the musculoskeletal system] Onset: 03-29-2022 03-29-2022 Episodic Other connective tissue disease (20 sources) Other symptoms and signs involving the musculoskeletal system; Translations: [Other musculoskeletal symptoms referable to limbs] Onset: 03-29-2022 02-15-2024 Episodic Other female genital disorders (20 sources) Polyp of corpus uteri; Translations: [Polyp of corpus uteri] Onset: 10-29-2024 10-29-2024 Episodic Other female genital disorders (20 sources) Endocervical polyp; Translations: [Polyp of cervix uteri] Onset: 10-29-2024 10-29-2024 Episodic Other gastrointestinal disorders (20 sources) Constipation; Translations: [Constipation, unspecified] Onset: 04-02-2022 04-03-2022 Episodic Other gastrointestinal disorders (14 sources) Diarrhea; Translations: [Diarrhea, unspecified] Onset: 10-18-2024 10-18-2024 Episodic Other nutritional; endocrine; and metabolic disorders (7 sources) Weight decreased; Translations: [Abnormal weight loss] Onset: 10-18-2024 10-18-2024 Episodic Other screening for suspected conditions (not mental disorders or infectious disease) (20 sources) Abnormal results of thyroid function studies; Translations: [Thyroid function tests abnormal] Onset: 08-15-2022 Episodic Other upper respiratory infections (19 sources) Acute sinusitis; Translations: [Other acute sinusitis] Onset: 10-10-2024 Resolved: 12-03-2024 10-10-2024 Episodic Otitis media and related conditions (19 sources) Acute suppurative otitis media without spontaneous rupture of ear drum; Translations: [Acute suppurative otitis media without spontaneous rupture of ear drum, right ear] Onset: 10-10-2024 Resolved: 12-03-2024 10-10-2024 Episodic Residual codes; unclassified (3 sources) Other specified postprocedural states; Translations: [Other postprocedural status] Onset: 04-07-2022 Episodic Residual codes; unclassified (1 source) Other specified health status; Translations: [Z78.9 - Other specified health status] Onset: 04-07-2022 Episodic Residual codes; unclassified (20 sources) Altered mental status; Translations: [Altered mental status, unspecified] Onset: 10-16-2024 Resolved: 01-06-2025 10-18-2024 Episodic Skin and subcutaneous tissue infections (14 sources) Cellulitis of foot; Translations: [Cellulitis of unspecified part of limb] Onset: 10-18-2024 10-18-2024 Episodic Spondylosis; intervertebral disc disorders; other back problems (20 sources) Spinal stenosis of lumbar region; Translations: [Spinal stenosis, lumbar region without neurogenic claudication] Onset: 03-23-2022 Resolved: 08-20-2024 03-23-2022 Episodic Results Test Name Value Interpretation Reference Range Facility ALL CBC WITH AUTO DIFFon BASOPHILS ABSOLUTE AUTO 0 N [facility] Basophils/100 WBC (Bld) 0.4 % 0.2 - 2.0 % [facility] Eosinophils/100 WBC (Bld) 3.7 % 0.9 - 7.0 % [facility] Erythrocyte distribution width (RBC) [Ratio] 13 % 11.0 - 15.0 % [facility] Hematocrit (Bld) [Volume fraction] 41.9 % 36.0 - 48.0 % [facility] Hemoglobin (Bld) [Mass/Vol] 13 g/dL 12.0 - 16.0 g/dL [facility] IMMATURE GRANULOCYTES ABS AUTO 0.01 [facility] Immature granulocytes/100 WBC (Bld) 0.1 % 0.0 - 0.5 % [facility] Interpretation and review of laboratory results Abnormal [facility] LYMPHOCYTES ABSOLUTE AUTO 3.7 [facility] Lymphocytes/100 WBC (Bld) 47.2 % 20.5 - 60.0 % [facility] MCH (RBC) [Entitic mass] 30.4 pg 26. 7 - 34.0 pg [facility] MCHC (RBC) [Mass/Vol] 31 g/dL 29.9 - 35.2 g/dL [facility] MCV (RBC) [Entitic vol] 98.1 fL 81.0 - 99.0 fL [facility] MONOCYTES ABSOLUTE AUTO 0.6 N [facility] Monocytes/100 WBC (Bld) 8.3 % 1.7 - 12.0 % [facility] NEUTROPHILS ABSOLUTE AUTO 3.1 [facility] Neutrophils/100 WBC (Bld) 40.3 % Low 43.0 - 75.0 % [facility] Platelet mean volume (Bld) [Entitic vol] 9.4 fL Low 9.5 - 13.5 fL [facility] EO # 0.3 [facility] PLT 283 [facility] RBC 4.27 [facility] WBC 7.7 [facility] CNOVon 01-17-2025 CNOV Office Visit ([facility] ) SAEED SARABIA ([id number]) 1940 F Date Time Provider Department 01/17/25 10:30 AM DINORA CARROLL [facility] During your visit today, we recorded the following information about you: Pulse Blood pressure Weight 62/minute 167/74 73.1 kg Dinora Carroll APRN.LAUNDRY AIDE 01/17/2025 1:31 PM Signed Consultation requested by Dr. Rolanda Chaparro for an opinion regarding weight loss. My final recommendations will be communicated back to the requesting physician by way of shared medical record or fax. REASON FOR VISIT: weight loss HPI: Saeed Sarabia is a 84 year old female who presents for unintentional weight loss and a history of abdominal pain. Approximately one year ago, patient began experiencing abdominal pain. Initial evaluations at [facility] suggested the presence of multiple gallstones, with recommendations for cholecystectomy. However, subsequent evaluations by another physician at the same hospital contradicted this recommendation, stating that surgery was not necessary. After a week of hospitalization and multiple tests, no definitive cause for the abdominal pain was identified. Due to persistent severe pain, patient was taken to the [facility], where further evaluations were conducted, including an endoscopy and various scans. A colonoscopy performed at [facility] revealed non-cancerous polyps, which were removed. During the evaluations at [facility], a scan indicated uterine thickening, leading to concerns about potential cancer. A golf ball cover treater at [facility] subsequently removed a polyp measuring 2 cm by 9 cm from the uterus and cervix. Following this procedure, patient's abdominal pain reportedly resolved. Patient has a known history of gallstones, with conflicting medical opinions on the necessity of cholecystectomy. One physician at [facility] recommended immediate surgery, stating the gallbladder was completely full of stones, while another physician at [facility] advised against it. Patient has also experienced significant unintentional weight loss, approximately 30 pounds over the past six months, but her weight has stabilized recently. She is diabetic and notes that her medication influences her appetite. She reportedly eats like a bird and drinks two 24-ounce cups of water daily, along with protein drinks. . Past Clinical Work-Up: RUQ US 10/18/24: CHOLELITHIASIS. 11/13/24: Normal perianal and digital rectal exam Two sessile polyps in the cecum, measuring 3-5 mm. Removed with cold snare. Removal and retrieval was complete One sessile polyp in the ascending colon, measuring 4 mm. Removed with cold snare. Removal and retrieval was complete One sessile polyp in the ascending colon, one fold distal to the ileocecal valve on the same side, measuring 20 mm. Eleview was injected to raise the polyp and separate it from the muscularis propria. The polyp was then resected using piecemeal cold snare polypectomy. 4 hemostatic clips were used to close the mucosal defect. Removal and retrieval was complete Moderate diverticulosis in the sigmoid and descending colons External hemorrhoids seen in the rectum on retroflexion EGD 10/21/24: - Normal duodenal bulb and second portion of the duodenum. Biopsies were taken with a cold forceps to rule out Whipple's Disease. - Erythematous mucosa in the antrum. Biopsied. - Z-line, 38 cm from the incisors. - Normal esophagus. CTAP 10/16/24: IMPRESSION: 1. Bilateral nonobstructing renal calculi. 2. Suggestion of endometrial thickening measuring 15 mm. Recommend nonemergent pelvic ultrasound for further evaluation. 3. Cholelithiasis. 4. Diverticulosis. ALLERGIES Allergen Reactions Morphine GI Upset PAST MEDICAL HISTORY Diagnosis Date A-fib (HCC) CAD (coronary artery disease) Heart attack (HCC) HTN (hypertension) PAST SURGICAL HISTORY Procedure Laterality Date BACK SURGERY HX HEART SURGERY HX 2006 stent placed FAMILY HISTORY Problem Relation Age of Onset Ischemic Heart Disease Mother Ischemic Heart Disease Father Social History Tobacco Use Smoking status: Never Passive exposure: Never Smokeless tobacco: Never Substance Use Topics Alcohol use: Never Drug use: Never Current Outpatient Medications Medication Sig cyanocobalamin (VITAMIN B-12) 1,000 mcg tab Take 1,000 mcg by mouth once daily. Magnesium 250 mg tab Take 250 mg by mouth once daily. therapeutic multivitamin (THERA VITAMIN) tablet Take 1 tablet by mouth once daily. pantoprazole DR (PROTONIX) 40 mg tablet TAKE 1 TABLET BY MOUTH TWICE DAILY (IN THE MORNING and IN THE EVENING) BEFORE MEALS metFORMIN (GLUCOPHAGE) 500 mg tablet Take 1 tablet by mouth twice daily with meals. apixaban (ELIQUIS) 5 mg tab(s) Take 1 tablet by mouth twice daily. acetaminophen (TYLENOL) 3 (more content not included)... Normal [facility] HISTORY PHYSICALon HISTORY PHYSICAL HNO ID: [id number] Author: DINORA CARROLL APRN.LAUNDRY AIDE Service: ? Author Type: Nurse Practitioner Type: H&P Filed: 01/17/2025 13:31 Note Text: Consultation requested by Dr. Rolanda Chaparro for an opinion regarding weight loss. My final recommendations will be communicated back to the requesting physician by way of shared medical record or fax. REASON FOR VISIT: weight loss HPI: Saeed Sarabia is a 84 year old female who presents for unintentional weight loss and a history of abdominal pain. Approximately one year ago, patient began experiencing abdominal pain. Initial evaluations at [facility] suggested the presence of multiple gallstones, with recommendations for cholecystectomy. However, subsequent evaluations by another physician at the same hospital contradicted this recommendation, stating that surgery was not necessary. After a week of hospitalization and multiple tests, no definitive cause for the abdominal pain was identified. Due to persistent severe pain, patient was taken to the [facility] Room, where further evaluations were conducted, including an endoscopy and various scans. A colonoscopy performed at [facility] revealed non-cancerous polyps, which were removed. During the evaluations at [facility], a scan indicated uterine thickening, leading to concerns about potential cancer. A golf ball cover treater at [facility] subsequently removed a polyp measuring 2 cm by 9 cm from the uterus and cervix. Following this procedure, patient's abdominal pain reportedly resolved. Patient has a known history of gallstones, with conflicting medical opinions on the necessity of cholecystectomy. One physician at [facility] recommended immediate surgery, stating the gallbladder was completely full of stones, while another physician at [facility] advised against it. Patient has also experienced significant unintentional weight loss, approximately 30 pounds over the past six months, but her weight has stabilized recently. She is diabetic and notes that her medication influences her appetite. She reportedly eats like a bird and drinks two 24-ounce cups of water daily, along with protein drinks. . Past Clinical Work-Up: RUQ US 10/18/24: CHOLELITHIASIS. 11/13/24: Normal perianal and digital rectal exam Two sessile polyps in the cecum, measuring 3-5 mm. Removed with cold snare. Removal and retrieval was complete One sessile polyp in the ascending colon, measuring 4 mm. Removed with cold snare. Removal and retrieval was complete One sessile polyp in the ascending colon, one fold distal to the ileocecal valve on the same side, measuring 20 mm. Eleview was injected to raise the polyp and separate it from the muscularis propria. The polyp was then resected using piecemeal cold snare polypectomy. 4 hemostatic clips were used to close the mucosal defect. Removal and retrieval was complete Moderate diverticulosis in the sigmoid and descending colons External hemorrhoids seen in the rectum on retroflexion EGD 10/21/24: - Normal duodenal bulb and second portion of the duodenum. Biopsies were taken with a cold forceps to rule out Whipple's Disease. - Erythematous mucosa in the antrum. Biopsied. - Z-line, 38 cm from the incisors. - Normal esophagus. CTAP 10/16/24: IMPRESSION: 1. Bilateral nonobstructing renal calculi. 2. Suggestion of endometrial thickening measuring 15 mm. Recommend nonemergent pelvic ultrasound for further evaluation. 3. Cholelithiasis. 4. Diverticulosis. ALLERGIES Allergen Reactions Morphine GI Upset PAST MEDICAL HISTORY Diagnosis Date A-fib (HCC) CAD (coronary artery disease) Heart attack (HCC) HTN (hypertension) PAST SURGICAL HISTORY Procedure Laterality Date BACK SURGERY HX HEART SURGERY HX 2006 stent placed FAMILY HISTORY Problem Relation Age of Onset Ischemic Heart Disease Mother Ischemic Heart Disease Father Social History Tobacco Use Smoking status: Never Passive exposure: Never Smokeless tobacco: Never Substance Use Topics Alcohol use: Never Drug use: Never Current Outpatient Medications Medication Sig cyanocobalamin (VITAMIN B-12) 1,000 mcg tab Take 1,000 mcg by mouth once daily. Magnesium 250 mg tab Take 250 mg by mouth once daily. therapeutic multivitamin (THERA VITAMIN) tablet Take 1 tablet by mouth once daily. pantoprazole DR (PROTONIX) 40 mg tablet TAKE 1 TABLET BY MOUTH TWICE DAILY (IN THE MORNING and IN THE EVENING) BEFORE MEALS metFORMIN (GLUCOPHAGE) 500 mg tablet Take 1 tablet by mouth twice daily with meals. apixaban (ELIQUIS) 5 mg tab(s) Take 1 tablet by mouth twice daily. acetaminophen (TYLENOL) 325 mg tablet 2 tablets by ORAL/FEEDING TUBE route every 4 hours as needed for pain or fever (specify). bumetanide (BUMEX) 1 mg tablet Take 0.5-1 mg by mouth once daily as needed (edema). ezetimibe (ZETIA) 10 mg tablet Take 10 mg by mouth once daily (more content not included)... Normal [facility] CNOVon 12-17-2024 CNOV Office Visit ([facility] ) SAEED SARABIA ([id number]) 1940 F Date Time Provider Department 12/17/24 9:00 AM LUCIANA GREEN [facility] During your visit today, we recorded the following information about you: Pulse Blood pressure Weight Height 70/minute 120/70 72.5 kg 1.676 m Cara Young MA 12/17/2024 12:51 PM Signed Powder Operator offered: Patient declines. Luciana Green DO 12/17/2024 12:51 PM Signed DATE OF SERVICE: 12/17/2024 PROBLEM: Saeed Sarabia presents for postop visit. SURGERY AND DATE: 12/06/2024, Operative hysteroscopy, polypectomy PATHOLOGY: A. Uterus, endometrium, polypectomy -Fragments of benign endometrial polyp B. Uterus, endometrium, dilation and curettage -Fragments of superficial inactive endometrium -Fragments of benign endometrial polyp SUBJECTIVE/INTERVAL HISTORY: Saeed Sarabia feels well. Denies SOB, CP, cough. Appetite is good. Normal bowel and bladder function. Pain is resolved. No bleeding SENSITIVE EXAM: Sensitive exam declined. Discussed rationale and impact on treatment. OBJECTIVE: VITALS: BP 120/70 Pulse 70 Ht 167.6 cm (5' 6 ) Wt 72.5 kg (159 lb 13.3 oz) SpO2 97% BMI 25.80 kg/m? HEENT: Normocephalic, atraumatic, mucus membranes moist, and no lesions LUNGS: Normal work of breathing. HEART: Regular rate. ABDOMEN: Abdomen soft, non-tender PELVIC: offered, declined ASSESSMENT: S/p operative hysteroscopy, polypectomy, healing well PLAN: 1. Discussed results of pathology and implications with patient. 2. Postop restrictions reviewed. Luciana Green DO Allergies As of Date: 12/17/2024 Noted Allergy Reaction MORPHINE 09/17/2024 8 - GI Upset Date Reviewed: 12/17/2024 Reviewed by: Cara Young MA - Fully Assessed Reason for Visit: Post Op [174] Cmt: Had polyp removed, bled for 4 to 5 days after Primary Visit Diagnosis:Postop check [Z09] Prescriptions as of 12/17/2024 - cyanocobalamin (VITAMIN B-12) 1,000 mcg tab Take 1,000 mcg by mouth once daily. - Magnesium 250 mg tab Take 250 mg by mouth once daily. - therapeutic multivitamin (THERA VITAMIN) tablet Take 1 tablet by mouth once daily. - pantoprazole DR (PROTONIX) 40 mg tablet TAKE 1 TABLET BY MOUTH TWICE DAILY (IN THE MORNING and IN THE EVENING) BEFORE MEALS - metFORMIN (GLUCOPHAGE) 500 mg tablet Take 1 tablet by mouth twice daily with meals. - apixaban (ELIQUIS) 5 mg tab(s) Take 1 tablet by mouth twice daily. - acetaminophen (TYLENOL) 325 mg tablet 2 tablets by ORAL/FEEDING TUBE route every 4 hours as needed for pain or fever (specify). - bumetanide (BUMEX) 1 mg tablet Take 0.5-1 mg by mouth once daily as needed (edema). - ezetimibe (ZETIA) 10 mg tablet Take 10 mg by mouth once daily. - lisinopril (ZESTRIL, PRINIVIL) 5 mg tablet Take 20 mg by mouth once daily. - metoprolol [...] once daily. Problem List As Of Date 12/17/2024 Noted Resolved Spinal stenosis [M48.00] 03/28/2022 Right leg weakness [R29.898] 03/29/2022 HLD (hyperlipidemia) [E78.5] 03/29/2022 Foot drop, right foot [M21.371] 03/29/2022 Atrial fibrillation (HCC) [I48.91] 03/29/2022 Benign essential HTN [I10] 03/29/2022 DM type 2 (diabetes mellitus, type 2) (HCC) [E1*03/29/2022 Constipation [K59.00] 04/02/2022 Altered mental status [R41.82] 10/16/2024 Abdominal pain [R10.9] 10/16/2024 Malnutrition of moderate degree (HCC) [E44.0] 10/17/2024 Cellulitis of foot [L03.119] 10/18/2024 Weight loss [R63.4] 10/18/2024 Diarrhea [R19.7] 10/18/2024 Complex regional pain syndrome type 1 of right *10/18/2024 Delirium due to another medical condition [F05] 10/18/2024 Vitamin B12 deficiency [E53.8] 10/21/2024 Endometrial polyp [N84.0] 10/29/2024 Endocervical polyp [N84.1] 10/29/2024 Thickened endometrium [R93.89] 10/29/2024 Abnormal ultrasound of endometrium [R93.5] 10/29/2024 CAD (coronary artery disease) [I25.10] Encounter Status:Closed by LUCIANA GREEN on 12/17/24 Normal [facility] ANES POSTPROC EVALon 025 ANES POSTPROC EVAL HNO ID: [id number] Author: BERLIN NAQVI MD Service: Anesthesiology Author Type: Anesthesiologist Type: Anesthesia Postprocedure Evaluation Filed: 12/06/2024 11:36 Note Text: POST ANESTHESIA EVALUATION NOTE : 1940 Procedure Summary Date: 12/06/24 Room / Location: OR11 / [facility] OR Anesthesia Start: 731 Anesthesia Stop: 910 Procedures: EXAM UNDER ANESTHESIA PELVIC / VAGINAL (Vagina ) HYSTEROSCOPY SURGICAL W/SAMPLING BIOPSY OF ENDOMETRIUM AND/OR POLYPECTOMY W/ OR W/O DANDC (TRUCLEAR) Diagnosis: Endometrial polyp (Endometrial polyp [N84.0]) Surgeons: Luciana Green DO Responsible Provider: Berlin Naqvi MD Anesthesia Type: general ASA Status: 3 Anesthesia Type: general Airway Type: LMA, ETT Last Vitals Vitals Value Taken Time BP 135/88 12/06/24 1019 Temp 36.4 ?C (97.5 ?F) 12/06/24 1019 HR SpO2 60 12/06/24 1023 Resp 15 12/06/24 1000 SpO2 100 % 12/06/24 1023 Vitals shown include unfiled device data. [facility] AN POST OP NOTE Anesthesia Observations No Documentation SIGNATURE: Berlin Naqvi MD PATIENT NAME: Saeed Sarabia DATE: December 06, 2024 TIME: 11:36 AM CSN: [id number] [facility] ANES PRE-OPon 12-06-2024 ANES PRE-OP HNO ID: [id number] Author: BERLIN NAQVI MD Service: Anesthesiology Author Type: Anesthesiologist Type: Anesthesia Preprocedure Evaluation Filed: 12/06/2024 07:27 Note Text: ANESTHESIOLOGY DAY OF SURGERY NOTE : 1940 Procedure Information Date/Time: 12/06/2430 Procedures: EXAM UNDER ANESTHESIA PELVIC / VAGINAL (Vagina ) HYSTEROSCOPY SURGICAL W/SAMPLING BIOPSY OF ENDOMETRIUM AND/OR POLYPECTOMY W/ OR W/O DANDC (TRUCLEAR) Location: OR11 / OR Surgeons: Luciana Green DO Estimated body mass index is 24.73 kg/m? as calculated from the following: Height as of 11/15/24: 167.6 cm (5' 6 ). Weight as of 11/15/24: 69.5 kg (153 lb 3.5 oz). Most recent hematocrit and potassium results: Hematocrit 36.0 10/20/2024 Potassium 3.7 10/20/2024 Relevant Problems CARDIO (+) Atrial fibrillation (HCC) (+) Benign essential HTN (+) CAD (coronary artery disease) ENDO (+) DM type 2 (diabetes mellitus, type 2) (HCC) I - PHYSICAL EVALUATION AIRWAY Patient intubated: No. Tracheostomy tube not present Mallampati: III. TM distance: >3 FB. Neck ROM: limited flexion and extension. Mouth opening: adequate. Short neck: no. Thick neck: no DENTAL Dentures, upper: complete. II - ANESTHESIA PLAN ASA Score: 3 Anesthetic Plan: general Airway type: LMA Beta Donna Monitoring Plan Post Procedure Analgesic Plan Informed Consent Anesthetic risks, benefits, alternatives, personnel and consent discussed: yes. Patient / Responsible Democrat agrees to proceed: yes Patient / Surrogate agrees to blood products: blood products not planned Vitals Value Taken Time BP 160/68 12/06/24 0637 Pulse 76 12/06/2437 Resp 16 12/06/2437 Temp 36.3 ?C (97.3 ?F) 12/06/24636 SpO2 98 % 12/06/24636 No current facility-administered medications on file as of 12/06/2024. Outpatient Medications as of 12/06/2024 Medication Sig cyanocobalamin (VITAMIN B-12) 1,000 mcg tab Take 1,000 mcg by mouth once daily. acetaminophen (TYLENOL) 325 mg tablet 2 tablets by ORAL/FEEDING TUBE route every 4 hours as needed for pain or fever (specify). bumetanide (BUMEX) 1 mg tablet Take 0.5-1 mg by mouth once daily as needed (edema). Magnesium 250 mg tab Take 250 mg by mouth once daily. therapeutic multivitamin (THERA VITAMIN) tablet Take 1 tablet by mouth once daily. pantoprazole DR (PROTONIX) 40 mg tablet TAKE 1 TABLET BY MOUTH TWICE DAILY (IN THE MORNING and IN THE EVENING) BEFORE MEALS metFORMIN (GLUCOPHAGE) 500 mg tablet Take 1 tablet by mouth twice daily with meals. apixaban (ELIQUIS) 5 mg tab(s) Take 1 tablet by mouth twice daily. ezetimibe (ZETIA) 10 mg tablet Take 10 mg by mouth once daily. lisinopril (ZESTRIL, PRINIVIL) 5 mg tablet Take 20 mg by mouth once daily. metoprolol succinate ER (TOPROL XL) 100 mg Take 100 mg by mouth once daily. rosuvastatin (CRESTOR) 5 mg tablet Take 5 mg by mouth once daily. glipiZIDE (GLUCOTROL) 5 mg tablet Take 5 mg by mouth twice daily before meals. spironolactone (ALDACTONE) 25 mg tablet Take 12.5 mg by mouth once daily. I have interviewed and examined the patient. I have reviewed the medical record and/or the pre-anesthesia evaluation, pertinent labs, and test results. This contains updated information obtained within 48 hours of Surgery/Procedure. SIGNATURE: Berlin Naqvi MD PATIENT NAME: Saeed Sarabia DATE: December 06, 2024 TIME: 7:27 AM CSN: [id number] [facility] BRIEF OP NOTon 12-06-2024 BRIEF OP NOT HNO ID: [id number] Author: ITZ AVALOS RN Service: ? Author Type: Registered Nurse Type: Brief Op Note Filed: 12/06/2024 09:02 Note Text: Per Surgeon, Fluid deficit is 285cc. [facility] TYPE + SCREENon 12-06-19 25 ABO O [facility] Rh Nom (Bld) Positive [facility] TYPE AND SCREEN EXPIRATION 12/09/2024 23:59 [facility] Specimen Type: BLOOD SPECIMEN Ordering Facility: [facility] Address: [address] [place] [address] BLOOD BANK [place] [id number] [address] [place] [address] [place] [facility] NURSING PROGon 12-06-2024 NURSING PROG HNO ID: [id number] Author: KATHY TAVERAS RN Service: Nursing Author Type: Registered Nurse Type: Nursing Progress Note Filed: 12/06/2024 10:12 Note Text: POST OP LEARNING RESPONSE INSTRUCTION PROVIDED TO: Patient and family member METHOD OF INSTRUCTION: Individual instruction Written instruction/Handouts Verbal instruction PATIENT / FAMILY RESPONSE: Verbalizes understanding FOLLOW-UP PLAN: Complete - No need for follow-up SUPPLEMENTAL MATERIAL: None REFERRAL (RECOMMENDATION): None Electronically Signed By: Kathy Taveras RN In Department: [facility] OPERATING ROOM Normal [facility] OPERATIVE NOon 12-06-2024 OPERATIVE NO HNO ID: [id number] Author: LUCIANA GREEN DO Service: Obstetrics Author Type: Physician Type: Operative Report Filed: 12/06/2024 09:21 Note Text: DIAGNOSTIC IMAGING MANAGER OPERATIVE/PROCEDURE REPORT LOG ID: [id number] Surgery/Procedure Date: 12/06/2024 Incision/Procedure Start Time: 8:09 AM Incision Close/Procedure End Time: 8:47 AM Surgeon(s)/Procedurali st(s) and Supervisor Fur Floor Worker(s): Surgeons and Role: * Luciana Green DO - Primary No Additional Staff Informed Consent: Informed Consent obtained and on the chart Procedure: Operative Hysteroscopy with Polypectomy and DANDC Pre-Op/Pre-Procedure Diagnosis: Endometrial polyp Post-Op/Post-Procedure Diagnosis: Same as pre-op diagnosis Antibiotic: None Procedure Details: Patient was taken to the operating room where the sign-in and time out were completed. General anesthesia was induced and found to be adequate. She was placed in dorsal lithotomy position with her feet in Yellowfin stirrups with careful attention not to hyperflex or hyperextend the knees or hips. SCDs were placed and turned on for DVT prophylaxis. Examination under anesthesia was performed to ascertain the position of the uterus which noted to be midposition. Patient was prepped and draped in the usual fashion. An open-sided speculum was placed in the patient's vagina with clear visualization of the cervix. The anterior lip of the cervix was grasped with a single tooth tenaculum. Cervix was already dilated due to the prolapsing polyp through the cervical os. A trueclear compatible hysteroscope was introduced under direct visualization, and the uterus was distended with normal saline. Fluid deficit was 285 cc. The hysteroscope was then used for initial survey revealing below findings. The uterine cavity was well visualized. The fallopian tube ostia were visualized bilaterally. Findings: Endometrium: Thin endometrium and area posteriorly of pseudopolypoid changes Endometrial cavity: Normal Polyps: Endometrial polyp: originating from left posterior uterine wall and prolapsing through the cervix. ~4cm in length. Areas of vasculature and calcifications Fibroids: No fibroids Other: cervix dilated after removal of polyp Additional techniques Include: TRUCLEAR MORCELLATOR: The Truclear morcellator was then placed into the uterine cavity and under direct visualization, the Polyp 's stalk was morcellated. The polyp was grasped with polyp forceps and removed and sent to Pathology. The cavity was noted to be empty and good hemostasis was noted. DANDC: A curette was introduced into the uterus without difficulty. A sharp curettage was performed gently. The endometrium curettings were collected on a telfa dressing. All instruments were removed from vagina and uterine cavity. Sign-out was completed. Distention Media: NS IV Fluids: 1000 Urine Output: 200 mL Estimated Blood Loss: < 10 mL Specimens: Endocervical curettings and Endometrial polyp Implantable Devices: NONE Drains: None Complications: None A digital sweep of the vaginal canal was performed by Luciana Green DO and it was ascertained that no instruments or other foreign bodies are retained within the cavity. Sponge, lap, and needle counts were correct times two and the patient was taken to the recovery room with stable vital signs after tolerating the procedure well. I/primary surgeon/proceduralist performed the entire procedure. SIGNATURE: Luciana Green DO PATIENT NAME: Saeed Sarabia DATE: December 06, 2024 TIME: 9:16 AM PAGER/CONTACT #: [facility] Pathology biopsy report Carlos (Tiss)on 12-06-2024 AP DISCLAIMER [facility] Comment on above: Order Comment: Speci men Type: TISSUE SPECIMENOrdering Facility: [facility] Address: [address] [place] [address] Result Comment: Ish beltrán Developed Test (LDT) Disclaimer: Performance characteristics of immunohistochemical, immunofluorescent, and chromogenic in-situ hybridization tests have been determined by the performing laboratory within [facility] and Laboratory Medicine Department ([facility], [facility], [facility], [facility], [facility], [facility], or [facility]) in a manner consistent with CLIA requirements. One or more of these tests may not have been cleared or approved by the FDA. [facility] is regulated under CLIA as qualified to perform high-complexity testing. These tests are used for clinical purposes. These should not be regarded as investigational or for research. Positive and negative controls stain appropriately. Performed By: #### 6 6121-5 ####[facility] LABCLIA [id number] [address] [address] [place] CASE REPORT Normal [facility] Comment on above: Order Comment: Speci men Type: TISSUE SPECIMENOrdering Facility: [facility] Address: [address] [place] [address] Result Comment: Surg ica Pathology Report Case: [id number] Authorizing Provider: Luciana Green DO Collected: 12/06/2024 08:36 AM Ordering Location: [facility] Received: 12/06/2024 09:22 AM Operating Room Pathologist: Robyn Minaya MD Specimens: A) - Endometrium, Polyp B) - Endometrium, Curettings Performed By: #### 6 6121-5 ####[facility] LABCLIA [id number] [address] [place] [address] [place] CLINICAL HISTORY Normal [facility] Comment on above: Order Comment: Speci men Type: TISSUE SPECIMENOrdering Facility: [facility] Address: [address] [place] [address] Result Comment: Pre- op diagnosis: Endometrial polyp [N84.0] Performed By: #### 6 6121-5 ####[facility] LABCLIA [id number] [address] [place] [address] [facility] [place] FINAL DIAGNOSIS Normal [facility] Comment on above: Order Comment: Speci men Type: TISSUE SPECIMENOrdering Facility: [facility] Address: [address] [place] [address] Result Comment: A. U terus, endometrium, polypectomy -Fragments of benign endometrial polyp B. Uterus, endometrium, dilation and curettage -Fragments of superficial inactive endometrium -Fragments of benign endometrial polyp at 1231 EST Performed By: #### 6 6121-5 ####[facility] LABCLIA [id number] [address] [place] [address] [place] FINAL PERFORMING LAB Normal [facility] Comment on above: Order Comment: Speci men Type: TISSUE SPECIMENOrdering Facility: [facility] Address: [address] [place] [address] Result Comment: Diag nostic interpretation performed at: [facility], [address] [place] [address], [facility] [address] [address] CLIA# [id number] Roller Varnisher: Liam Naik MD Performed By: #### 6 6121-5 ####[facility] LABCLIA [id number] [address] [place] GROSS DESCRIPTION Normal [facility] Comment on above: Order Comment: Speci men Type: TISSUE SPECIMENOrdering Facility: [facility] Address: [address] [place] [address] Result Comment: A. E ndometrium, Polyp Received in formalin are two segments of frank-pink to red-brown polypoid tissue aggregating to 9.0 x 1.8 x 0.8 cm. The larger specimen is serially sectioned and totally submitted in cassettes A1-A4. The smaller specimen is bisected and totally submitted in cassette A5. B. Endometrium, Curettings Received in formalin are multiple frank-white, soft feathery segments of tissue aggregating to 2.5 x 2.0 x 0.5 cm. Totally submitted in one cassette. VY December 06, 2024 1:33 PM Gross examination performed at [facility], [address] [place] [address] Performed By: #### 6 6121-5 ####[facility] LABCLIA [id number] [place] [address] [place] TYPE + SCREENon 12-06-2024 ABO O [facility] Comment on above: Order Comment: Speci men Type: BLOOD SPECIMENOrdering Facility: [facility] Address: [address] [place] [address] Performed By: #### T SCR ####[facility] [id number] [place] [address] [place] Rh Nom (Bld) Positive [facility] Comment on above: Order Comment: Specnae nieto Type: BLOOD SPECIMENOrdering Facility: [facility] Address: [address] [place] [address] Performed By: #### T SCR ####[facility]ANKCLIA [id number] [place] [id number] [facility] [place] TYPE AND SCREEN EXPIRATION 12/09/2024 23:59 Normal [facility] Comment on above: Order Comment: Speci men Type: BLOOD SPECIMENOrdering Facility: [facility] Address: [address] [place] [address] Performed By: #### T SCR ####[facility] BANKCLIA [id number] [place] [id number] [facility] HbA1c (Bld) [Mass fraction]o n 12-03-2024 Interpretation and review of laboratory results Abnormal [facility] - Hematology and Cell countson 12-03-2024 HbA1c (Bld) [Mass fraction] 5.80 % [facility] XR CHEST 2V FRONTAL/LATon * * *Final Report* * * DATE OF EXAM: Nov 15 2024 2:40PM NOX [id number] - XR CHEST 2V FRONTAL/LAT / PROCEDURE REASON: multiple diagnoses * * * * Physician Interpretation * * * * EXAMINATION: CHEST RADIOGRAPH (2 VIEW FRONTAL and LATERAL) CLINICAL HISTORY: Pre-op evaluation Benign essential HTN MQ: XC2_6 EXAM DATE/TIME: 11/15/2024 2:40 PM COMPARISON: No relevant prior studies available. RESULT: Lines, tubes, and devices: None. Lungs and pleura: No consolidation. Bibasal atelectatic changes. No lung mass. No pleural effusion. No pneumothorax. Cardiomediastinal silhouette: Heart size is within normal limits. Calcified aortic knuckle. Bones and soft tissues: Multilevel vertebral degenerative changes. No acute skeletal findings. IMPRESSION: No acute radiographic abnormality. Fat Pressroom Worker: PSCB Transcribe Date/Time: Nov 18 2024 12:10P Dictated by : VIOLET MONTENEGRO MD This examination was interpreted and the report reviewed and electronically signed by: VIOLET MONTENEGRO MD on Nov 18 2024 12:12PM EST [id number]^SI^ ACN [facility], MD N[place] - 11/19/2024 * * *Final Report* * * DATE OF EXAM: Nov 15 2024 2:40PM NOX 5291 - XR CHEST 2V FRONTAL/LAT / PROCEDURE REASON: multiple diagnoses * * * * Physician Interpretation * * * * EXAMINATION: CHEST RADIOGRAPH (2 VIEW FRONTAL and LATERAL) CLINICAL HISTORY: Pre-op evaluation Benign essential HTN MQ: XC2_6 EXAM DATE/TIME: 11/15/2024 2:40 PM COMPARISON: No relevant prior studies available. RESULT: Lines, tubes, and devices: None. Lungs and pleura: No consolidation. Bibasal atelectatic changes. No lung mass. No pleural effusion. No pneumothorax. Cardiomediastinal silhouette: Heart size is within normal limits. Calcified aortic knuckle. Bones and soft tissues: Multilevel vertebral degenerative changes. No acute skeletal findings. IMPRESSION: No acute radiographic abnormality. Fat Pressroom Worker: [email or web address] Transcribe Date/Time: Nov 18 2024 12:10P Dictated by : VIOLET MONTENEGRO MD This examination was interpreted and the report reviewed and electronically signed by: VIOLET MONTENEGRO MD on Nov 18 2024 12:12PM EST [id number]^[email or web address]^SI^ ACN [facility] XR CHEST 2V FRONTAL/LATOrder ed By: Radiologist Radiology on 11-18-2024 [facility] Work Phone: HISTORY PHYSICALon HISTORY PHYSICAL HNO ID: [id number] Author: MAXINE SINGH APRN.DOG RACES MANAGER Service: ? Author Type: Clinical Nurse Specialist Type: H&P Filed: 11/18/2024 12:26 Note Text: [facility] HISTORY AND PHYSICAL EXAMINATION SERVICE DATE: 11/14/2024 SERVICE TIME: 3:47 PM PRIMARY CARE PHYSICIAN: Galindo Miller CNP, LAUNDRY AIDE Assessment Patient has the following medical conditions which may affect ashley-operative course: Atrial fibrillation (HCC) Assessment: takes Eliquis daily, will stop 2 days pre op,currently stable Benign essential HTN Assessment: takes Lisinopril,Metoprolol, stable BP 147/56 taken at [facility] visit 11/15/24 CAD (coronary artery disease) Assessment: had LAD stent placed 2005 followed per [facility] Hearing Officer Dr. Roberson DM type 2 (diabetes mellitus, type 2) ([facility]) Assessment: takes Metformin,Glipizide currently stable Glucose Date Value Ref Range Status 10/20/2024 135 (H) 74 - 99 mg/dL Final Comment: The [place] Diabetes Association (ADA) provides guidance for cutoff [...] Standards of Medical Care in Diabetes 2016, [place] [employer]. Diabetes Care. 2016.39(Suppl 1). HLD (hyperlipidemia) Assessment: takes Vic Stewart, stable Wallace Activity Status Index: METS: Walk indoors, such as around the house (1.75 METs) Do light work around the house, such as dusting or washing dishes (2.70 METs) Take care of self; that is eating, dressing, bathing, using the toilet (2.75 METs) Walk a block or two on level ground (2.75 METs) Do moderate work around the house, such as vacuuming, sweeping floors, or carrying in groceries (3.50 METs) Do yardwork, such as raking leaves, weeding, or pushing a power mower (4.50 METs) Climb a flight of stairs or walk up a hill (5.50 METs) DASI Score: 23.45 Patient denies any chest pain or undue shortness of breath with the above physical activity. Clinical Frailty Scale: 5. Mildly frail STOP-Bang Score: Has or is being treated for high blood pressure Denies snoring loudly Denies feeling tired, fatigued, or sleepy during the daytime Has not been observed to stop breathing or choking/gasping during sleep BMI less than or equal to 35 kg/m2 Patient 50 years old or younger Does not have a large neck Non-male patient STOP-Bang Score: 1 [id number] Score: Age: >=75 Sex: female CHF history: No Hypertension history: Yes Stroke/TIA/thromboembo lism history: No Vascular disease history: No Diabetes history: Yes [id number] Score: 5 ARISCAT Score: Age: >80 Preoperative SpO2: >=96% Respiratory infection in the last month: No Preoperative anemia: Yes Surgical incision: peripheral Duration of surgery: <2 hrs Emergency procedure: No ARISCAT Score: 27 ANESTHESIA FINDINGS: Intubation History: No history of difficult intubation Significant Anesthesia Considerations: none Airway History: No history of difficult airway I - PHYSICAL EVALUATION AIRWAY Patient intubated: No. Tracheostomy tube not present Mallampati: III. TM distance: >3 FB. Neck ROM: full ROM without neurological symptoms. Mouth opening: adequate. Short neck: no. Thick neck: no Wang present: no Lip Bite Test: II Microretrognathia/Micr onagthia/Recessed Chin: No DENTAL Normal dental observations. Dental findings: teeth intact. Dentures, upper: complete. II - ANESTHESIA PLAN Anesthetic Plan: other Anesthetic plan additional comments: Anesthesia choice. Beta Donna Monitoring Plan Post Procedure Analgesic Plan Prepared for Surgery: optimally prepared for surgery, pending day of surgery. Chest Xray CONSULTS: Patient does not require consults for optimization at this time The following consults have been initiated at this time: cardiology (cardiac clearance in epic of 11/07/[address] Jose Roberson). Planned Anesthetic: other The Following Tests/Procedures Have Been Initiated: Orders Placed This Encounter XR CHEST 2V FRONTAL/LAT Standing Status: Future Number of Occurrences: 1 Standing Expiration Date: 12/13/2025 REASON FOR VISIT: Saeed Sarabia is a 84 year old female who is scheduled for Procedure(s): EXAM UNDER ANESTHESIA PELVIC / VAGINAL (N/A) HYSTEROSCOPY SURGICAL W/SAMPLING BIOPSY OF ENDOMETRIUM AND/OR POLYPECTOMY W/ OR W/O DANDC (more content not included)... Normal [facility] XR CHEST 2V FRONTAL/LATon XR CHEST 2V FRONTAL/LAT * * *Final Repor t* * * DATE OF EXAM: Nov 15 2024 2:40PM NOX [id number] - XR CHEST 2V FRONTAL/LAT / PROCEDURE REASON: multiple diagnoses * * * * Physician Interpretation * * * * EXAMINATION: CHEST RADIOGRAPH (2 VIEW FRONTAL and LATERAL) CLINICAL HISTORY: Pre-op evaluation Benign essential HTN MQ: XC2_6 EXAM DATE/TIME: 11/15/2024 2:40 PM COMPARISON: No relevant prior studies available. RESULT: Lines, tubes, and devices: None. Lungs and pleura: No consolidation. Bibasal atelectatic changes. No lung mass. No pleural effusion. No pneumothorax. Cardiomediastinal silhouette: Heart size is within normal limits. Calcified aortic knuckle. Bones and soft tissues: Multilevel vertebral degenerative changes. No acute skeletal findings. IMPRESSION: No acute radiographic abnormality. Fat Pressroom Worker: PSCB Transcribe Date/Time: Nov 18 2024 12:10P Dictated by : VIOLET MONTENEGRO MD This examination was interpreted and the report reviewed and electronically signed by: VIOLET MONTENEGRO MD on Nov 18 2024 12:12PM EST [id number] Normal [facility] Radiology Study observation (narrative) [facility] HISTOLOGY - TISSUE EXAMon LAB AP CASE REPORT Normal [facility] Comment on above: Result Comment: Surg ical Pathology Case: [id number] Authorizing Provider: Bradford Davis MD Collected: 11/13/2024 1100 Ordering Location: [facility] Received: 11/13/2024 [facility] Pathologist: Cyndee Eden MD Specimens: A) - Large Intestine, Cecum, cecum polyp to r/o adenoma B) - Large Intestine, Right/Ascending Colon, asending EMR polyp to R/O adenoma Performed By: #### L [id number] ####[facility] (BEAKER)[address], [facility] [address] LAB AP CLINICAL INFORMATION Order Diagnoses Normal [facility] Comment on above: Result Comment: R10. 9 - Abdominal pain, unspecified site [ICD-10-CM] Performed By: #### L [id number] ####[facility] ([facility]ER)[address], [facility] [address] LAB AP DIAGNOSIS COMMENT B. Due to exten sive specimen fragmentation, it is not possible to differentiate a sessile serrated adenoma from a hyperplastic polyp. Suggest endoscopic correlation and close follow-up. [facility] Comment on above: Performed By: #### L [id number] ####[facility] ([facility])[address] [place] [place] [address] LAB AP GROSS DESCRIPTION [facility] Comment on above: Result Comment: A. L arge Intestine, Cecum. Part A is received in formalin labeled Saeed Cornell and cecum polyp to rule out adenoma . It consists of 2 frank-pink, irregular pieces of mucosal tissue measuring 0.2 cm and 0.4 cm in greatest dimension. The specimen is submitted in toto in 1 cassette. Brandi Menendez, Pathologists' Supervisor Fur Floor Worker student Trinidad Ornelas, Pathologists' Supervisor Fur Floor Worker student Johnnie. Large Intestine, Right/Ascending Colon. Part B is received in formalin labeled Saeed Cornell and ascending EMR polyp to rule out adenoma . It consists of multiple frank-pink, irregular pieces of mucosal tissue measuring 2.3 x 1.7 x 0.3 cm in aggregate. The specimen is submitted in toto in 1 cassette. No specimen is received pinned to a surgical board. Brandi Menendez, Pathologists' Supervisor Fur Floor Worker student Trinidad Ornelas, Pathologists' Supervisor Fur Floor Worker student Performed By: #### L [id number] ####[facility] ([facility])[address] [place] [place] [address] LAB AP MICROSCOPIC DESCRIPTION Microscopic examination performed. [facility] Comment on above: Performed By: #### L [id number] ####[facility] ([facility])[address] [place] [place] [address] LAB AP REPORT FINAL DIAGNOSIS NARRATIVE [facility] Comment on above: Result Comment: A. C olon, cecal polyp, polypectomy: - Tubular adenoma. - No high grade dysplasia is seen. B. Colon, ascending polyp, polypectomy: - Multiple fragments of serrated polyp with no dysplasia. - See comment. Performed By: #### L [id number] ####[facility] ([facility])[address] [place] [place] [address] POCT GLUCOSE METER UNSOLICIT ED RESULTSon 11-13-2024 Glucose [Mass/Vol] 120 mg/dL High 70-105 [facility] Comment on above: Order Comment: Waive d Testing in the ED is performed under the ED CLIA certificate #[id number]. Result Comment: jhag eman Performed By: #### L [id number] #### [facility] (BEAKER) [address] [place] [address] Prep for Procedureon 025 Prep for Procedure [id number] Saeed Sarabia 1940 F Date Provider Department Center 11/13/2024 [facility] [facility] PREOP [facility] C Family History Problem Relation Age of Onset Heart attack Mother Coronary artery disease Mother Heart attack Father Coronary artery disease Father Multiple sclerosis Sister Family Status - Relation Status Age at Mother Father Sister Normal [facility] CNPNon 11-07-2024 CNPN Telephone (OGFVWE) SAEED SARABIA ([id number]) 1940 F Date Time Provider Department 11/07/24 LUCIANA GREEN OGFVWE During your visit today, we recorded the following information about you: Alton Wang 11/07/2024 4:33 PM Signed [facility] Hearing Officer office called to give update from office visit today, see CareEverywhere: Preoperative evaluation for colonoscopy and uterine DANDC: She can proceed at low to intermediate cardiac risk. She can hold Eliquis 2 days prior to the procedures and resume Eliquis afterwards. Please advise Allergies As of Date: 11/07/2024 Noted Allergy Reaction MORPHINE 09/17/2024 8 - GI Upset Date Reviewed: 11/04/2024 Reviewed by: Luciana Green, DO - Fully Assessed Reason for Visit: Schedule Surgery [1330] Prescriptions as of 11/14/2024 - cyanocobalamin (VITAMIN B-12) 1,000 mcg tab Take 1,000 mcg by mouth once daily. - Magnesium 250 mg tab Take 250 mg by mouth once daily. - therapeutic multivitamin (THERA VITAMIN) tablet Take 1 tablet by mouth once daily. - pantoprazole DR (PROTONIX) 40 mg tablet TAKE 1 TABLET BY MOUTH TWICE DAILY (IN THE MORNING and IN THE EVENING) BEFORE MEALS - metFORMIN (GLUCOPHAGE) 500 mg tablet Take 1 tablet by mouth twice daily with meals. - apixaban (ELIQUIS) 5 mg tab(s) Take 1 tablet by mouth twice daily. - acetaminophen (TYLENOL) 325 mg tablet 2 tablets by ORAL/FEEDING TUBE route every 4 hours as needed for pain or fever (specify). - bumetanide (BUMEX) 1 mg tablet Take 0.5-1 mg by mouth once daily as needed (edema). - ezetimibe (ZETIA) 10 mg tablet Take 10 mg by mouth once daily. - lisinopril (ZESTRIL, PRINIVIL) 5 mg tablet Take 20 mg by mouth once daily. - metoprolol [...] once daily. Problem List As Of Date 11/07/2024 Noted Resolved Spinal stenosis [M48.00] 03/28/2022 Right leg weakness [R29.898] 03/29/2022 HLD (hyperlipidemia) [E78.5] 03/29/2022 Foot drop, right foot [M21.371] 03/29/2022 Atrial fibrillation (HCC) [I48.91] 03/29/2022 Benign essential HTN [I10] 03/29/2022 DM type 2 (diabetes mellitus, type 2) (HCC) [E1*03/29/2022 Constipation [K59.00] 04/02/2022 Altered mental status [R41.82] 10/16/2024 Abdominal pain [R10.9] 10/16/2024 Malnutrition of moderate degree (HCC) [E44.0] 10/17/2024 Cellulitis of foot [L03.119] 10/18/2024 Weight loss [R63.4] 10/18/2024 Diarrhea [R19.7] 10/18/2024 Complex regional pain syndrome type 1 of right *10/18/2024 Delirium due to another medical condition [F05] 10/18/2024 Vitamin B12 deficiency [E53.8] 10/21/2024 Endometrial polyp [N84.0] 10/29/2024 Endocervical polyp [N84.1] 10/29/2024 Thickened endometrium [R93.89] 10/29/2024 Abnormal ultrasound of endometrium [R93.5] 10/29/2024 Encounter Status:Closed by ALTON WANG on 11/14/24 Normal [facility] HPon 11-07-2024 [facility] Cardiology - [facility] Subjective Saeed Sarabia is a 84 y.o. year old female patient being seen for 9 mo follow up CAD, CHF, PAF, and hypertension. She needs clearance for colonoscopy scheduled 11/13/2024 at [facility] with Dr. Davis. Patient also states she needs clearance for D&C at [facility] for uterine polyp. Denies chest pain, SOB, palpitations, lightheadedness/syncop e, and bleeding on Eliquis. Had EKG last month. Patient Active Problem List Diagnosis Coronary arteriosclerosis Atrial fibrillation (CMS/HCC) Diastolic heart failure (CMS/HCC) Essential hypertension Hyperlipidemia Mitral valve regurgitation Type 2 diabetes mellitus without complication (CMS/HCC) Constipation Foot drop, right foot Right leg weakness Spinal stenosis Acute abdominal pain Acute metabolic encephalopathy Acute cholecystitis Cholelithiasis Abnormal thyroid blood test Abnormal ultrasound of endometrium Acute gastric ulcer without hemorrhage or perforation Altered mental status Cellulitis of foot 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 Delirium due to another medical condition Diarrhea Encounter for subsequent annual wellness visit (AWV) in Medicare patient Endocervical polyp Endometrial polyp Hypernatremia Malnutrition of moderate degree (CMS/HCC) Non-recurrent acute suppurative otitis media of right ear without spontaneous rupture of tympanic membrane Other acute sinusitis Other thrombophilia (CMS/HCC) Peripheral vascular disease, unspecified (CMS/HCC) Thickened endometrium Type 2 diabetes mellitus with diabetic neuropathy, unspecified (CMS/HCC) Type 2 diabetes mellitus with diabetic peripheral angiopathy without gangrene (CMS/HCC) Vaginal yeast infection Vitamin B12 deficiency Weight loss Family History Problem Relation Name Age of Onset Heart attack Mother Coronary artery disease Mother Heart attack Father Coronary artery disease Father Multiple sclerosis Sister Social History Tobacco Use Smoking status: Never Smokeless tobacco: Never Vaping Use Vaping status: Never Used Substance Use Topics Alcohol use: Not Currently Drug use: Never HPI Saeed Sarabia is a 84 yo woman who is seen in follow [...] the assistance of a walker after her prior back surgery. She has no angina and no shortness of breath on her current level of exertion. She does not feel palpitations. She has no bleeding issues with Eliquis. No claudication. Her right leg is in a brace. She needs to undergo colonoscopy as well as uterine D&C surgeries. Review of Systems Musculoskeletal: Positive for muscle weakness. Objective Visit Vitals BP 152/76 (BP Location: Right arm, Patient Position: Sitting) Pulse 77 Ht 1.676 m (5' 6 ) Wt 69.9 kg (154 lb) SpO2 99% BMI 24.86 kg/m??? Smoking Status Never BSA 1.8 m??? Physical Exam Constitutional: Appearance: She is [...] person, place, and time. Psychiatric: Mood and (more content not included)... Normal [facility] Office Visiton 11-07-2024 Follow-up visit [id number] Saeed Sarabia 1940 F Date Provider Department Center 11/07/2024 NavarroJOSE ROBERSON [facility] Family History Problem Relation Age of Onset Heart attack Mother Coronary artery disease Mother Heart attack Father Coronary artery disease Father Multiple sclerosis Sister Family Status - Relation Status Age at Mother Father Sister Level of Service:17113 [place] OFFICE/OUTPATIENT ESTABLISHED MOD MDM 30 MIN Normal [facility] Jose Cruz 11-05-2024 [place] Telephone (OGFVWE) SAEED SARABIA ([id number]) 1940 F Date Time Provider Department 11/05/24 LUCIANA GREEN OGFVWE During your visit today, we recorded the following information about you: Rehan Rashid RN 11/05/2024 11:19 AM Signed ----- Message from Luciana Green DO sent at 11/04/2024 4:08 PM EST ----- Regarding: chad TRACIE Zelaya, Can you let this patient or her know that I was unable to reach her beef cattle grazier and to have them tell the beef cattle grazier to review my note and that she is going to have surgery and they will need recs. Epic wont let me message him due to him being at [facility] but we can see things in care everywhere. Thanks, Rehan Kowalski RN 11/05/2024 11:[address] to patient who was identified by name and . Reviewed/Discussed DO Manpreet message in detail. Pt verbalized understanding and agreed with the plan. No questions or other concerns at this time. Rehan Rashid RN Allergies As of Date: 11/05/2024 Noted Allergy Reaction MORPHINE 09/17/2024 8 - GI Upset Date Reviewed: 11/04/2024 Reviewed by: Luciana Green DO - Fully Assessed Prescriptions as of 11/05/2024 - cyanocobalamin (VITAMIN B-12) 1,000 mcg tab Take 1,000 mcg by mouth once daily. - Magnesium 250 mg tab Take 250 mg by mouth once daily. - therapeutic multivitamin (THERA VITAMIN) tablet Take 1 tablet by mouth once daily. - pantoprazole DR (PROTONIX) 40 mg tablet TAKE 1 TABLET BY MOUTH TWICE DAILY (IN THE MORNING and IN THE EVENING) BEFORE MEALS - metFORMIN (GLUCOPHAGE) 500 mg tablet Take 1 tablet by mouth twice daily with meals. - apixaban (ELIQUIS) 5 mg tab(s) Take 1 tablet by mouth twice daily. - acetaminophen (TYLENOL) 325 mg tablet 2 tablets by ORAL/FEEDING TUBE route every 4 hours as needed for pain or fever (specify). - bumetanide (BUMEX) 1 mg tablet Take 0.5-1 mg by mouth once daily as needed (edema). - ezetimibe (ZETIA) 10 mg tablet Take 10 mg by mouth once daily. - lisinopril (ZESTRIL, PRINIVIL) 5 mg tablet Take 20 mg by mouth once daily. - metoprolol [...] once daily. Problem List As Of Date 11/05/2024 Noted Resolved Spinal stenosis [M48.00] 03/28/2022 Right leg weakness [R29.898] 03/29/2022 HLD (hyperlipidemia) [E78.5] 03/29/2022 Foot drop, right foot [M21.371] 03/29/2022 Atrial fibrillation (HCC) [I48.91] 03/29/2022 Benign essential HTN [I10] 03/29/2022 DM type 2 (diabetes mellitus, type 2) (HCC) [E1*03/29/2022 Constipation [K59.00] 04/02/2022 Altered mental status [R41.82] 10/16/2024 Abdominal pain [R10.9] 10/16/2024 Malnutrition of moderate degree (HCC) [E44.0] 10/17/2024 Cellulitis of foot [L03.119] 10/18/2024 Weight loss [R63.4] 10/18/2024 Diarrhea [R19.7] 10/18/2024 Complex regional pain syndrome type 1 of right *10/18/2024 Delirium due to another medical condition [F05] 10/18/2024 Vitamin B12 deficiency [E53.8] 10/21/2024 Endometrial polyp [N84.0] 10/29/2024 Endocervical polyp [N84.1] 10/29/2024 Thickened endometrium [R93.89] 10/29/2024 Abnormal ultrasound of endometrium [R93.5] 10/29/2024 Encounter Status:Closed by REHAN RASHID on 11/05/24 Normal [facility] CNOVon 11-04-2024 CNOV Office Visit (OGFVWE ) SAEED SARABIA ([id number]) 1940 F Date Time Provider Department 11/04/24 9:00 AM LUCIANA GREEN OGFVWE During your visit today, we recorded the following information about you: Pulse Blood pressure Weight Height 80/minute 160/82 70.5 kg 1.676 m Luciana Green, DO 11/04/2024 4:11 PM Signed Saeed Sarabia is a 84 year old female who presents for surgical consult. Has endometrial polyp. SIS results (10/29/24): Saline infusion sonohysterogram demonstrated an intracavitary lesion. The details of these findings are described in the procedure section below. The uterus is axial and measures 71 mm x 32 mm x 41 mm. The thickened, irregular and avascular endometrium measures 9.7 mm. The myometrium is heterogenous. There is a large endometrial polyp extending down to the cervix. This polyp measures 34 mm x 20 mm x 19 mm. On examination, while performing the SIS, this large mass is extending down through the external cervical os and is thick and firm. EMB results (10/29/24): A. Endometrium, biopsy: - Superficial strips of inactive endometrium, see comment. REVIEW OF SYSTEMS Allergies and current medication updated:Yes HISTORY OB History No obstetric history on file. 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 No pertinent family history. Social History Tobacco Use Smoking status: Never Passive exposure: Never Smokeless tobacco: Never Substance Use Topics Alcohol use: Never Drug use: Never Current Outpatient Medications Medication Sig cyanocobalamin (VITAMIN B-12) 1,000 mcg tab Take 1,000 mcg by mouth once daily. Magnesium 250 mg tab Take 250 mg by mouth once daily. therapeutic multivitamin (THERA VITAMIN) tablet Take 1 tablet by mouth once daily. pantoprazole DR (PROTONIX) 40 mg tablet TAKE 1 TABLET BY MOUTH TWICE DAILY (IN THE MORNING and IN THE EVENING) BEFORE MEALS metFORMIN (GLUCOPHAGE) 500 mg tablet Take 1 tablet by mouth twice daily with meals. apixaban (ELIQUIS) 5 mg tab(s) Take 1 tablet by mouth twice daily. acetaminophen (TYLENOL) 325 mg tablet 2 tablets by ORAL/FEEDING TUBE route every 4 hours as needed for pain or fever (specify). bumetanide (BUMEX) 1 mg tablet Take 0.5-1 mg by mouth once daily as needed (edema). ezetimibe (ZETIA) 10 mg tablet Take 10 mg by mouth once daily. lisinopril (ZESTRIL, PRINIVIL) 5 mg tablet Take 20 mg by mouth once daily. metoprolol succinate ER (TOPROL XL) 100 mg Take 100 mg by mouth once daily. rosuvastatin (CRESTOR) 5 mg tablet Take 5 mg by mouth once daily. glipiZIDE (GLUCOTROL) 5 mg tablet Take 5 mg by mouth twice daily before meals. spironolactone (ALDACTONE) 25 mg tablet Take 12.5 mg by mouth once daily. No current facility-administered medications for this visit. Allergies As of Date: 11/04/2024 Allergen Noted Reaction MORPHINE 09/17/2024 GI Upset Fully Assessed 11/04/2024 EXAM: BP 160/82 Pulse 80 Ht 5' 6 (1.68m) Wt 155 lb 6.8 oz (70.5kg) SpO2 98% BMI 25.10 kg/(m2). GENERAL: Appears comfortable, in no apparent distress HEENT: Normocephalic, atraumatic, and mucus membranes moist NECK: Supple and full range of motion DERMATOLOGY: Normal, without lesions, non-icteric, and non-hirsute CHEST: Normal inspiratory effort NEURO: alert and oriented x3,exam grossly non-focal EXTREMITIES: normal SENSITIVE EXAM: Sensitive exam not performed. ASSESSMENT AND PLAN: Assessment AND Plan Endometrial polyp - Recommended hysteroscopic removal of polyp and endometrial sampling. - Risks, benefits, and alternatives discussed with the patient. Risks including, but not limited to: bleeding, infection, injury to nearby structures (highest risk to bowel, bladder), uterine perforation as well as surgical risks of DVT, PE, ME, . All questions and concerns were addressed. [...] weeks. Orders: SURGICAL REQUEST - ELECTIVE (05/2020) Luciana Green DO Medical Decision Making: Problems: Moderate: New problem with uncertain prognosis Risk: Moderate: Decision on minor surgery w/ risk factors Medical Decision Making Level: 4 - Mode (more content not included)... Normal [facility] SURGICAL PATHOLOGYon [facility] CASE REPORT [facility] Comment on above: Surgical Pathology R eport Case: [id number] Authorizing Provider: Gabriela Centeno MD Collected: 10/29/2024 10:40 AM Ordering Location: OB/Gynecology Received: 10/29/2024 11:58 AM Pathologist: Sabina Santiago MD Specimen: Endometrium, Biopsy, endonetrium [facility] CLINICAL HISTORY thickened endometri um on CT and pelvic ultrasound, large polyp prolapsing out of the cervix appears to be attached to endometrial polyp. growt, no bleeding [facility] DIAGNOSIS COMMENT Sections show limi rashi superficial strips of inactive endometrium without intact underlying stroma. There is no evidence of malignancy in this specimen. An endometrial curetting is recommended if clinical indicated. [facility] Comment on above: A. Endometrium, biop sy: - Superficial strips of inactive endometrium, see comment. FINAL PERFORMING LAB [facility] Comment on above: Diagnostic interpret ation performed at: [facility], [address] [place] [address], Desk [address]IA[address] [id number] Roller Varnisher: Liam Naik MD [facility] GROSS DESCRIPTION [facility] Comment on above: A. Endometrium, Biop sy Received in formalin are multiple frank, soft feathery segments of tissue mixed with mucinous material aggregating to 0.3 x 0.1 x 0.1 cm. Totally submitted in one cassette. May not survive processing. Gross examination performed at [facility], [address] [place] [address] [facility] 10/29/2024 5:17 PM Specimen Type: TISSU E SPECIMEN Ordering Facility: [facility] Address: [address], [place] [address] Original Ordering Provider: GABRIELA CENTENO [facility] 10-30-2024 CNPN Telephone (OBGFVC) SAEED SARABIA ([id number]) 1940 F Date Time Provider Department 10/30/24 GABRIELA CENTENO [facility] During your visit today, we recorded the following information about you: Gabriela Centeno MD 10/30/2024 2:21 PM Signed Spoke with patient's Sammy (patient gave consent to speak with him yesterday). Reported endometrial biopsy with superficial strips of inactive endometrium. Recommend to follow up with Dr. Green as the biopsy did not have enough tissue and they need to get the polyp removed.Told patient's he needs to schedule an appointment with Dr. Green for his . Forwarded results of endometrial biopsy to Dr. Green. FINAL DIAGNOSIS A. Endometrium, biopsy: - Superficial strips of inactive endometrium, see comment. Diagnosis Comment Sections show limited superficial strips of inactive endometrium without intact underlying stroma. There is no evidence of malignancy in this specimen. An endometrial curetting is recommended if clinical indicated. Gabriela Centeno MD Allergies As of Date: 10/30/2024 Noted Allergy Reaction MORPHINE 09/17/2024 8 - GI Upset Date Reviewed: 10/29/2024 Reviewed by: Gabriela Centeno MD - Fully Assessed Prescriptions as of 10/30/2024 - cyanocobalamin (VITAMIN B-12) 1,000 mcg tab Take 1,000 mcg by mouth once daily. - Magnesium 250 mg tab Take 250 mg by mouth once daily. - therapeutic multivitamin (THERA VITAMIN) tablet Take 1 tablet by mouth once daily. - pantoprazole DR (PROTONIX) 40 mg tablet TAKE 1 TABLET BY MOUTH TWICE DAILY (IN THE MORNING and IN THE EVENING) BEFORE MEALS - metFORMIN (GLUCOPHAGE) 500 mg tablet Take 1 tablet by mouth twice daily with meals. - apixaban (ELIQUIS) 5 mg tab(s) Take 1 tablet by mouth twice daily. - acetaminophen (TYLENOL) 325 mg tablet 2 tablets by ORAL/FEEDING TUBE route every 4 hours as needed for pain or fever (specify). - bumetanide (BUMEX) 1 mg tablet Take 0.5-1 mg by mouth once daily as needed (edema). - ezetimibe (ZETIA) 10 mg tablet Take 10 mg by mouth once daily. - lisinopril (ZESTRIL, PRINIVIL) 5 mg tablet Take 20 mg by mouth once daily. - metoprolol [...] once daily. Problem List As Of Date 10/30/2024 Noted Resolved Spinal stenosis [M48.00] 03/28/2022 Right leg weakness [R29.898] 03/29/2022 HLD (hyperlipidemia) [E78.5] 03/29/2022 Foot drop, right foot [M21.371] 03/29/2022 Atrial fibrillation (HCC) [I48.91] 03/29/2022 Benign essential HTN [I10] 03/29/2022 DM type 2 (diabetes mellitus, type 2) (HCC) [E1*03/29/2022 Constipation [K59.00] 04/02/2022 Altered mental status [R41.82] 10/16/2024 Abdominal pain [R10.9] 10/16/2024 Malnutrition of moderate degree (HCC) [E44.0] 10/17/2024 Cellulitis of foot [L03.119] 10/18/2024 Weight loss [R63.4] 10/18/2024 Diarrhea [R19.7] 10/18/2024 Complex regional pain syndrome type 1 of right *10/18/2024 Delirium due to another medical condition [F05] 10/18/2024 Vitamin B12 deficiency [E53.8] 10/21/2024 Endometrial polyp [N84.0] 10/29/2024 Endocervical polyp [N84.1] 10/29/2024 Thickened endometrium [R93.89] 10/29/2024 Abnormal ultrasound of endometrium [R93.5] 10/29/2024 Encounter Status:Closed by GABRIELA CENTENO on 10/30/24 [facility] CNOVon 10-29-2024 CNOV Office Visit ([facility] ) SAEED SARABIA Saad ([id number]) 1940 F Date Time Provider Department 10/29/24 12:30 PM BRENDON DORSEY [facility] During your visit today, we recorded the following information about you: Brendon Dorsey MD 10/29/2024 3:53 PM Signed [facility] New Patient Evaluation Date: October 29, 2024 Patient Name: Saeed Sarabia [facility] was asked by to evaluate Saeed Sarabia. Our recommendations of care will be communicated by shared medical record. Reason for Evaluation/Chief complaint: memory concerns Accompanied by: SUBJECTIVE: HPI: Saeed Sarabia is a 84 year old Right handed female who presents to the [facility] for an initial evaluation. Patient has been seen and referred by . Patient has a pertinent PMHx significant for CAD, Atrial Fibrillation, . Today's visit: Visit was scheduled by her daughter. She has been admitted for for confusions. notices that she has been more confused in the last couple of months. Family will ask her questions and she will not be able to respond. She will go blank. has been doing her medication management for a few years. She stopped driving 2.5 years ago because of the foot drop. 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 HS education. 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 She cleans her house and cooks. She is independent in self care. Spoke with daughter on the phone after visit: Lorie notes that she had been having memory problems which were partly attributed to UTI. But she worries that it is more than just UTI. She improved after antibiotics but then confusion came back 2 weeks later. When in [place] she was hallucinating. She got IV antibiotics for UTI. What triggered the visit to ER was two episodes of non-responsiveness noted by daughter while she was on the phone with her. She asked her some questions on the phone and Saeed could not respond. But when she was asked her mom are you there? And she responded yes. She was awake and alert but confused. Prior to these episodes, Over the last year, she would have trouble recalling certain information. Short-term Memory: Repeats questions/statements: NO Misplacing items around the house: NO Difficulty remembering details of recent conversations within a few hours: Yes Difficulty remembering names of familiar people (not family or friends): NO Missed some appointments or major events due to memory changes: NO Language: Word-finding difficulty: NO Fluency: NO Difficulty understanding conversations: NO Difficulty with reading or writing: NO Difficulty with reading comprehension: No Mood: normal Neurobehavioral symptoms: normal Sleep: normal Parkinsonism: normal REVIEW OF SYSTEMS: Weight change/Appetite: no concerns Hearing: no change Vision: no change Constipation, Diarrhea: no Incontinence: no Chest pain: No Edema: No Dyspnea: No Falls/injuries/acciden ts: No NEURO: SEE HPI OUTPATIENT MEDICATIONS Current Outpatient Medications on File Prior to Visit Medication Sig therapeutic multivitamin (THERA VITAMIN) tablet Take 1 tablet by mouth once daily. pantoprazole DR (PROTONIX) 40 mg tablet TAKE 1 TABLET BY MOUTH TWICE DAILY (IN THE MORNING and IN THE EVENING) BEFORE MEALS metFORMIN (GLUCOPHAGE) 500 mg tablet Take 1 tablet by mouth twice daily with meals. apixaban (ELIQUIS) 5 mg tab(s) Take 1 tablet by mouth twice daily. acetaminophen (TYLENOL) 325 mg tablet 2 tablets by ORAL/FEEDING TUBE route every 4 hours as needed for pain or fever (specify). bumetanide (BUMEX) 1 mg tablet Take 0.5-1 mg by mouth once daily as needed (edema). ezetimibe (ZETIA) 10 mg tablet Take 10 mg by mouth once daily. lisinopril (ZESTRIL, PRINIVIL) 5 mg tablet Take 20 mg by mouth once daily. metoprolol succinate ER (TOPROL XL) 100 mg Take 100 mg by mouth once daily. rosuvastatin (CRESTOR) 5 mg tablet Take 5 mg by mouth once daily. glipiZIDE (GLUCOTROL) 5 mg tablet Take 5 mg by mouth twice daily before meals. spironolactone (ALDACTONE) 25 mg tablet Take 12.5 mg by mouth once daily. No current facility-administered medications on file prior to visit. MEDICAL HISTORY PAST MEDICAL HISTORY Diagnosis Date A-fib (HCC) Heart attack (HCC) SURGICAL HISTORY PAST SURGICAL HISTORY Procedure Laterality Date BACK SURGERY HX HEART SURGERY HX SOCIAL HISTORY Social History Tobacco Use Smoking status: Never Passive exposure: Never Smokeless tobacco: Never Substance Use Topics Alcohol use: Never D (more content not included)... Normal [facility] CNOV Office Visit ([facility] ) SAEED SARABIA ([id number]) 1940 F Date Time Provider Department 10/29/24 10:[address] [facility] During your visit today, we recorded the following information about you: Pulse Blood pressure Weight Height 66/minute 155/73 68 kg 1.676 m Gabriela Centeno MD 10/29/2024 8:34 PM Signed Saeed Sarabia is a 84 year old No obstetric history on file. here for SIS. Referred by: Luciana Green [id number] [place] [address] Chief Complaint: Thickened endometrium Endometrial Biopsy: No Ultrasound: No Hormonal therapy: No. LMP: No LMP recorded. Patient is postmenopausal. Cycles: n/a Contraception: N/A HCG: n/a UNIVERSAL PROTOCOL / SAFETY CHECKLIST Procedure to be Performed: Saline infusion sonohysterogram and endometrial biopsy Sign In: A Moment of CARE was completed. Personnel directly involved with the procedure wore the appropriate PPE (Personal Protective Equipment). No special equipment needed. Patient/Surrogate Stated/Verified: PATIENT VERIFIED(optional for EMERGENT procedures): Patient name, Date of , Relevant allergies, and The intended procedure Time Out Communication: Intended patient and procedure match the source documents. Consent documented and matches the intended procedure. Relevant labs, photos, and/or imaging studies have been reviewed. No correct side/site applicable for marking and visibility. No medications required for procedure. No fire risk assessment and interventions applicable. No implant(s) inserted. Sign Out: SIGN OUT (optional for EMERGENT procedures): All specimen containers correctly labeled. All instruments, equipment, possible retained foreign bodies accounted for. Post-procedure follow-up management communicated and Plan of Care Visit completed when applicable. Gabriela Centeno MD PROCEDURE: Saline Infusion Sonohysterogram and Endometrial Biopsy EXTERNAL GENITALIA: Normal in appearance without lesions VAGINA: Normal in appearance without lesions Speculum placed into the vagina with excellent visualization of the cervix. Cervix cleaned with betadine. There is a large endocervical polyp/mass that is quite thick. SIS catheter inserted into the uterus without difficulty. The cervix external os was approximately 1 cm dilated. Speculum removed and 10 mL sterile saline injected into the uterine cavity under ultrasound guidance. See ViewPoint for procedure results. Endometrial Biopsy was performed as follows: A speculum placed in vagina with good visualization of cervix; cervix swabbed x3 with Betadine solution. Endometrial sampling achieved with Pipelle sampling unit. Tissue collected, labelled and sent to Pathology. Instruments removed. Procedure Summary: Patient tolerated procedure well. Patient to schedule follow-up virtual visit for results See ViewPoint for procedure results. Gabriela Centeno MD Ultrasound Gabriela Centeno MD 10/29/2024 10:34 AM Signed SALINE INFUSION SONOGRAPHY (SIS) is an office procedure used to evaluate the intrauterine cavity or inside lining of the uterus. This is achieved by intrauterine infusion of a saline solution during transvaginal ultrasound (an ultrasound using a vaginal probe). A small, flexible catheter is passed through the cervix (the opening of the uterus) into the uterus so the sterile water can distend the uterine doty and allow visualization of the uterine cavity. AFTER THE PROCEDURE: A small amount of bleeding, cramping, or watery discharge is expected. You may use pads. Tylenol, Advil, or Motrin may be used for abdominal cramping or discomfort you may experience. Refrain from douching or intercourse for 7 days. Showers or tub baths are allowed. However, refrain from hot tubs and swimming for 7 days. NOTIFY YOUR PHYSICIAN'S OFFICE IF YOU HAVE A TEMPERATURE OF 100.4 DEGREES OR HIGHER, OR IF YOU EXPERIENCE SEVERE ABDOMINAL PAIN, OR HEAVY BLEEDING. YOUR PHYSICIAN WILL NOTIFY YOU OF YOUR TEST RESULTS Post-Endometrial Biopsy Instructions You just had a procedure called an Endometrial Biopsy. This means a specimen of tissue was removed from the lining of the uterus for the pathologist to study. The reason for this test was explained to you by your Doctor. IMPORTANT THINGS TO REMEMBER: 1. You may experience vaginal bleeding or spotting. Please the office if: Vaginal discharge increases in quantity or begins to have an unpleasant odor. You experience discomfort that Advil does not relieve quickly. Unusually heavy vaginal bleeding or swelling develops. You develop signs of infection (fever over 100.4 F, chills, aching, or tiredness) 2. You should avoid sexual intercourse, use of tampons and douching for at least one week. . If you have any questions, call the office at any time. Referring Provider: CASSY GREEN (more content not included)... Normal [facility] SURGICAL PATHOLOGYon 025 CASE REPORT Normal [facility] Comment on above: Order Comment: Speci men Type: TISSUE SPECIMENOrdering Facility: [facility] Address: [address] [place] [address] Result Comment: Surg ical Pathology Report Case: [id number] Authorizing Provider: Gabriela Centeno MD Collected: 10/29/2024 10:40 AM Ordering Location: OB/Gynecology Received: 10/29/2024 11:58 AM Pathologist: Sabnia Santiago MD Specimen: Endometrium, Biopsy, endonetrium Performed By: #### S ####[facility] LABCL[facility] [id number] [place] [address] [place] CLINICAL HISTORY thickened endometriu m on CT and pelvic ultrasound, large polyp prolapsing out of the cervix appears to be attached to endometrial polyp. growt, no bleeding Normal [facility] Comment on above: Order Comment: Speci men Type: TISSUE SPECIMENOrdering Facility: [facility] Address: [address] [place] [address] Performed By: #### S ####[facility] LABIA [id number] [address] [place] DIAGNOSIS COMMENT Sections show limite d superficial strips of inactive endometrium without intact underlying stroma. There is no evidence of malignancy in this specimen. An endometrial curetting is recommended if clinical indicated. Normal [facility] Comment on above: Order Comment: Speci men Type: TISSUE SPECIMENOrdering Facility: [facility] Address: [address] [place] [address] Performed By: #### S ####[facility] LABIA [id number] [address] [place] FINAL DIAGNOSIS Normal [facility] Comment on above: Order Comment: Speci men Type: TISSUE SPECIMENOrdering Facility: [facility] Address: [address] [place] [address] Result Comment: A. E ndometrium, biopsy: - Superficial strips of inactive endometrium, see comment. Performed By: #### S ####[facility] LABCLIA [id number] [place] [address] [place] FINAL PERFORMING LAB Normal [facility] Comment on above: Order Comment: Speci men Type: TISSUE SPECIMENOrdering Facility: [facility] Address: [address] [place] [address] Result Comment: Diag nostic interpretation performed at: [facility], [address] [place] [address] CLIA# [id number] Roller Varnisher: Liam Naik MD Performed By: #### S ####[facility] LABIA [id number] [address] STATES OF [facility] GROSS DESCRIPTION Normal [facility] Comment on above: Order Comment: Speci men Type: TISSUE SPECIMENOrdering Facility: [facility] Address: [address] [place] [address] Result Comment: A. E ndometrium, Biopsy Received in formalin are multiple frank, soft feathery segments of tissue mixed with mucinous material aggregating to 0.3 x 0.1 x 0.1 cm. Totally submitted in one cassette. May not survive processing. Gross examination performed at [facility], [address] [place] [address] 10/29/2024 5:17 PM Performed By: #### S ####[facility] LABIA [id number] [place] [address] [place] US Uterus and Fallopian tube s W saline IUon 10-29-2024 Indication cervical polyp on exam Impression Saline infusion sonohysterogram demonstrated an intracavitary lesion. The details of these findings are described in the procedure section below. The uterus is axial and measures 71 mm x 32 mm x 41 mm. The thickened, irregular and avascular endometrium measures 9.7 mm. The myometrium is heterogenous. There is a large endometrial polyp extending down to the cervix. This polyp measures 34 mm x 20 mm x 19 mm. On examination, while performing the SIS, this large mass is extending down through the external cervical os and is thick and firm. The right ovary is not visualized. The left ovary is not visualized. There is no free fluid visualized. Endometrial biopsy performed as requested. Technique: Three dimensional imaging was created on a dedicated stand-alone 3D workstation with images created and archived, and supervised and reviewed by the interpreting physician utilizing images from a US Scan performed on 10/28/24. Recommendations Consider hysteroscopic evaluation and management of intracavitary lesion if clinically indicated pending endometrial biopsy results. Endometrial biopsy performed as requested. See Epic documentation. Menstrual History Contraception: menopausal. HRT: No Method Transabdominal and transvaginal ultrasound examination, 3D ultrasound examination, Color Doppler examination, Saline Infusion Sonohysterogram. View: Adequate visualization Uterus Uterus: Visualized Uterus position: axial Description of uterine malformations: normally shaped Myometrium: heterogeneous Endometrium: thickened,irregular Cervix details: polyp noted Uterus length 71 mm Uterus width 41 mm Uterus height 32 mm Uterus Vol 49.5 cm Endometrial thickness single layer 4.5 mm Endom. th. single layer 5.2 mm Side: anterior Side: posterior Endometrial thickness, total 9.7 mm Polyps: Polyps identified Uterine polyp D1 34 mm Uterine polyp D2 20 mm Uterine polyp D3 19 mm Uterine polyp mean 24.3 mm Uterine polyp findings: cavity filling extending down to the cervix Right Ovary Rt ovary: Not visualized Left Ovary Lt ovary: Not visualized Cul de Sac Visualized. no free fluid visualized Procedure Saline infused ultrasound was performed and shows evidence of intrauterine pathology. An endometrial polyp was seen originating from the endometrium measuring 34 mm X 20 mm X 19 mm. The anterior single layer endometrial thickness measured 4.5 mm and the posterior single layer endometrial thickness measured 5.2 mm. Endometrial biopsy performed as requested. Performed By: Rehan Costa RDMS Read By: Gabriela Centeno M.D. MATERNAL MEDICINE [facility] Radiology Study observation (narrative) [facility] Office [facility] (OGFVWE ) SAEED SARABIA ([id number]) 1940 F Date Time Provider Department 10/24/24 1:30 PM NICHOLASLUCIANA SWEENEY Danay OGFVWE During your visit today, we recorded the following information about you: Pulse Blood pressure Weight Height 65/minute 120/70 70.3 kg 1.651 m Cara Young MA 10/24/2024 3:36 PM Signed Powder Operator offered: Patient declines. Luciana Green, 10/24/2024 3:36 PM Signed Saeed Sarabia is a 84 year old female who presents for thickened endometrial stripe on CT scan in ED. No bleeding since menopause at age 52. , vaginal deliveries. No hx of fibroids, polyps, endometriosis. No hormonal therapy. All normal pap smears. REVIEW OF SYSTEMS Abdomen: No bloating, early satiety, indigestion, or increased flatulence. No abdominal pain, nausea, vomiting, diarrhea, or constipation. Bladder: No dysuria, gross hematuria, urinary frequency, urinary urgency, or incontinence. Expanded ROS: N/A Allergies and current medication updated:Yes History HISTORY OB History No obstetric history on file. 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 No pertinent family history. Social History Tobacco Use Smoking status: Never Passive exposure: Never Smokeless tobacco: Never Substance Use Topics Alcohol use: Never Drug use: Never Current Outpatient Medications Medication Sig therapeutic multivitamin (THERA VITAMIN) tablet Take 1 tablet by mouth once daily. pantoprazole DR (PROTONIX) 40 mg tablet TAKE 1 TABLET BY MOUTH TWICE DAILY (IN THE MORNING and IN THE EVENING) BEFORE MEALS metFORMIN (GLUCOPHAGE) 500 mg tablet Take 1 tablet by mouth twice daily with meals. ezetimibe (ZETIA) 10 mg tablet Take 10 mg by mouth once daily. lisinopril (ZESTRIL, PRINIVIL) 5 mg tablet Take 20 mg by mouth once daily. metoprolol succinate ER (TOPROL XL) 100 mg Take 100 mg by mouth once daily. rosuvastatin (CRESTOR) 5 mg tablet Take 5 mg by mouth once daily. glipiZIDE (GLUCOTROL) 5 mg tablet Take 5 mg by mouth twice daily before meals. spironolactone (ALDACTONE) 25 mg tablet Take 12.5 mg by mouth once daily. apixaban (ELIQUIS) 5 mg tab(s) Take 1 tablet by mouth twice daily. acetaminophen (TYLENOL) 325 mg tablet 2 tablets by ORAL/FEEDING TUBE route every 4 hours as needed for pain or fever (specify). dextrose (TRUEPLUS) 15 gram/32 mL oral gel Take 32 mL by mouth as needed. (Patient not taking: Reported on 10/16/2024) bumetanide (BUMEX) 1 mg tablet Take 0.5-1 mg by mouth once daily as needed (edema). (Patient not taking: Reported on 10/16/2024) gabapentin (NEURONTIN) 100 mg capsule Take 100 mg by mouth three times daily. (Patient not taking: Reported on 10/16/2024) No current facility-administered medications for this visit. Allergies As of Date: 10/24/2024 Allergen Noted Reaction MORPHINE 09/17/2024 GI Upset Fully Assessed 10/24/2024 EXAM: BP 120/70 Pulse 65 Ht 5' 5 (1.65m) Wt 154 lb 15.7 oz (70.3kg) SpO2 98% BMI 25.79 kg/(m2). GENERAL: Appears comfortable, in no apparent distress HEENT: Normocephalic, atraumatic NECK: Supple and full range of motion DERMATOLOGY: Normal, without lesions, non-icteric, and non-hirsute, bruising CHEST: Normal inspiratory effort ABDOMEN: soft, non-tender, and no masses PELVIC: external genitalia normal, atrophic skin changes on vulva, large irregular vascular polyp noted through cervical os protruding about 3 cm in length (at least 1 cm diameter) from os. Cervical os about 1 cm dilated around polyp. No bleeding. BIMANUAL: uterus normal size, shape and consistency, no adnexal masses, and non-tender, polyp palpated through mildly dilated os NEURO: alert and oriented x3,exam grossly non-focal EXTREMITIES: normal SENSITIVE EXAM: The sensitive examination was discussed with the Patient or Patient's Authorized Inspector Machine Cut Glass. As applicable, any other physician, advance practice provider, medical student, or other health professional student that will be observing or involved in the sensitive examination for educational or training purposes was discussed with the Patient or Authorized Inspector Machine Cut Glass. The Patient or Authorized Inspector Machine Cut Glass has agreed to proceed with the sensitive examination. (Sensitive examination includes inspection and/or palpation of the breasts, pelvis, prostate and anorectal regions). ASSESSMENT AND PLAN: Assessment AND Plan Thickened endometrium - Likely secondary to polyp seen protruding through cervix - Recommend US/SIS to evaluate and discussed need to (more content not included)... Normal [facility] Orders Onlyon 10-23-2024 Orders Only [id number] Saeed Sarabia 1940 F Date Provider Department Center 10/23/2024 [id number], MALISSA ASC OR RANJANA Family History Problem Relation Age of Onset Heart attack Mother Coronary artery disease Mother Heart attack Father Coronary artery disease Father Multiple sclerosis Sister Family Status - Relation Status Age at Mother Father Sister Normal [facility] SURGICAL PATHOLOGYon F CASE REPORT [facility] Comment on above: Surgical Pathology R eport Case: [id number] Authorizing Provider: Atul Crowder MD Collected: 10/21/2024 10:59 AM Ordering Location: [facility] Received: 10/21/2024 12:39 PM Endoscopy - ENDO Pathologist: Ned Michel MD Specimens: A) - Small Bowel, Duodenum, Biopsy, Jar A, R/O Whipple's Disease B) - Stomach, Biopsy, Jar B R/O H.Pylori [facility] FINAL DIAGNOSIS [facility] Comment on above: A. Duodenum, biopsy: - Duodenal mucosa with no significant pathologic change. B. Stomach, biopsy: - Gastric antral and oxyntic-type mucosa with mild reactive epithelial changes and histologic features consistent with proton pump inhibitor use. - No intestinal metaplasia or morphologic evidence of Helicobacter pylori organisms. [facility] FINAL PERFORMING LAB [facility] Comment on above: Diagnostic interpret ation performed at: [facility], [address] [place] [address], [address] [address] CLIA# [id number] Roller Varnisher: Liam Naik MD [facility] GROSS DESCRIPTION [facility] Comment on above: A. Small Bowel, Duod enum, Biopsy Received in formalin are multiple pieces of frank, soft tissue aggregating to 1.2 x 0.2 x 0.2 cm. Totally submitted in one cassette. B. Stomach, Biopsy Received in formalin are multiple pieces of frank, soft tissue aggregating to 0.9 x 0.3 x 0.2 cm. Totally submitted in one cassette. Gross examination performed at [facility], [address] [place] [address] October 21, 2024 5:42 PM Specimen Type: TISSU E SPECIMEN Ordering Facility: [facility] Address: [address] [place] [address] Original Ordering Provider: ATUL CROWDER [facility] ANES POSTPROC EVALon 025 ANES POSTPROC EVAL HNO ID: [id number] Author: RAMIREZ SOLIS MD Service: Critical Care Author Type: Anesthesiologist Type: Anesthesia Postprocedure Evaluation Filed: 10/21/2024 12:59 Note Text: POST ANESTHESIA EVALUATION NOTE : 1940 Procedure Summary Date: 10/21/24 Room / Location: [facility] Endoscopy - ENDO Anesthesia Start: 1052 Anesthesia Stop: 1115 Procedure: EGD DIAGNOSTIC Diagnosis: (Dyspepsia, Unspecified) Scheduled Providers: Atul Crowder MD; Ramirez Solis MD; Cayla Edwadr APRN.CORK MOLDER Responsible Provider: Ramirez Solis MD Anesthesia Type: MAC ASA Status: 3 Anesthesia Type: MAC Last Vitals Vitals Value Taken Time BP 156/76 10/21/24 1217 Temp 36.7 ?C (98.1 ?F) 10/21/24 1217 HR SpO2 53 10/21/24 1145 Resp 18 10/21/24 1217 SpO2 96 % 10/21/24 1217 Post Anesthesia Patient Status Patient Evaluation: PACU. PACU/ICU Patient Condition: stable. Anticipated Disposition: inpatient floor planned admission. Neurological Status: aware and responsive. Pulmonary Status: breathing comfortably on room air Airway Control: returned to baseline unsupported. Cardiovascular Status: stable. Pain Management: clinically adequate - multimodal analgesia pain management approach Postoperative Hydration: acceptable. Intraoperative Events: no significant anesthesia events Post Operative Nausea/Vomiting Status: no significant post operative nausea or vomiting Recommendation: continue current plan of care. Anesthesia Observations No Documentation SIGNATURE: Ramirez Solis MD PATIENT NAME: Saeed Sarabia DATE: October 21, 2024 TIME: 12:59 PM CSN: [id number] Normal [facility] ANES PRE-OPon 10-21-2024 ANES PRE-OP HNO ID: [id number] Author: RAMIREZ SOLIS MD Service: Critical Care Author Type: Anesthesiologist Type: Anesthesia Preprocedure Evaluation Filed: 10/21/2024 10:23 Note Text: ANESTHESIOLOGY DAY OF SURGERY NOTE : 1940 Procedure Information Date/Time: 10/21/24 1000 Scheduled providers: Atul Crowder MD; Ramirez Solis MD; Cayla Edward APRN.CORK MOLDER Procedure: EGD DIAGNOSTIC Location: [facility] Endoscopy - ENDO Estimated body mass index is 27.96 kg/m? as calculated from the following: Height as of this encounter: 165.1 cm (5' 5 ). Weight as of this encounter: 76.2 kg (168 lb). Most recent hematocrit and potassium results: Hematocrit 36.0 10/20/2024 Potassium 3.7 10/20/2024 Relevant Problems CARDIO (+) Atrial fibrillation (HCC) (+) Benign essential HTN ENDO (+) DM type 2 (diabetes mellitus, type 2) (HCC) Psychiatry (+) Confusion I - PHYSICAL EVALUATION AIRWAY Patient intubated: No. Tracheostomy tube not present Mallampati: II. TM distance: >3 FB. Neck ROM: full ROM without neurological symptoms. Mouth opening: adequate. Short neck: no. Thick neck: no DENTAL Dental findings: poor dentition and missing tooth/teeth. Additional exam findings: yes. CARDIOVASCULAR Rhythm: regular Rate: normal PULMONARY Breath sounds clear to auscultation. Other findings: AAO x 1 , person only. II - ANESTHESIA PLAN ASA Score: 3 Anesthetic Plan: MAC The patient is not a current smoker. NPO Status: adequate Anesthetic plan additional comments: Discussed possibility of mental decline in the setting of anesthesia and ongoing mental issues. Beta Donna Monitoring Plan Monitoring plan: standard ASA. Post Procedure Analgesic Plan Postoperative analgesic plan: multimodal analgesia. Informed Consent Anesthetic risks, benefits, alternatives, personnel and consent discussed: yes. Patient / Responsible Democrat agrees to proceed: yes Patient / Surrogate agrees to blood products: Yes Significant changes in the patient condition since the History and Physical, not otherwise documented in primary service progress note: no. Potential Anesthesia issues that may suggest increased risk of complications or contraindication to planned procedure: none. Vitals Value Taken Time BP 176/79 10/21/24 1008 Pulse 66 10/21/24 1008 Resp 22 10/21/24 1008 Temp 36.8 ?C (98.2 ?F) 10/21/24 1008 SpO2 94 % 10/21/24 1008 Facility-Administered Medications as of 10/21/2024 Medication Dose Route Frequency haloperidol 2 mg tab(s) (HALDOL) 2 mg ORAL AT BEDTIME haloperidol 0.5 mg tab(s) (HALDOL) 0.5 mg ORAL DAILY PRN [COMPLETED] cyanocobalamin 1,000 mcg injection 1,000 mcg INTRAMUSCULAR ONCE [COMPLETED] haloperidol lactate 2 mg short-acting injection (HALDOL) 2 mg INTRAVENOUS ONCE [] lactated ringers iv infusion 100 mL/hr INTRAVENOUS CONTINUOUS ezetimibe 10 mg tab(s) (ZETIA) 10 mg ORAL DAILY lisinopril 5 mg tab(s) (ZESTRIL) 5 mg ORAL DAILY metoprolol succinate ER 100 mg tab(s) (TOPROL XL) 100 mg ORAL DAILY rosuvastatin 5 mg tab(s) (CRESTOR) 5 mg ORAL DAILY spironolactone 12.5 mg tab(s) (ALDACTONE) 12.5 mg ORAL DAILY metFORMIN 500 mg tab(s) (GLUCOPHAGE) 500 mg ORAL BID w MEALS pantoprazole DR 40 mg tab(s) (PROTONIX) 40 mg ORAL BID AC (0600/1600) NaCl 0.9% iv flush bag 20 mL INTRAVENOUS PRN senna-docusate 8.6-50 mg 1 tablet (SENNA-S) 1 tablet ORAL BID PRN melatonin 6 mg tab(s) 6 mg ORAL AT BEDTIME PRN ondansetron (PF) 4 mg injection (ZOFRAN) 4 mg INTRAVENOUS q 6 H PRN acetaminophen 500-1,000 mg tab(s) (TYLENOL) 500-1,000 mg ORAL q 6 H PRN dextrose 40 % 15 g 15 g ORAL PRN Or glucagon 1 mg injection 1 mg INTRAMUSCULAR PRN Or dextrose 10% iv bolus 12.5 g INTRAVENOUS PRN insulin lispro injection (rapid acting) (ADMElog) SUBCUTANEOUS w MEALS AND HS [COMPLETED] magnesium sulfate iv piggyback in sterile water 2 g 50 mL 2 g INTRAVENOUS ONCE Outpatient Medications as of 10/21/2024 Medication Sig metFORMIN (GLUCOPHAGE) 500 mg tablet Take 1 tablet by mouth twice daily with meals. apixaban (ELIQUIS) 5 mg tab(s) Take 1 tablet by mouth twice daily. acetaminophen (TYLENOL) 325 mg tablet 2 tablets by ORAL/FEEDING TUBE route every 4 hours as needed for pain or fever (specify). dextrose (TRUEPLUS) 15 gram/32 mL oral gel Take 32 mL by mouth as needed. (Patient not taking: Reported on 10/16/2024) docusate sodium (COLACE) 100 mg capsule Take 1 capsule by mouth twice daily. (Patient not taking: Reported on 10/16/2024) lidocaine (SALONPAS) 4 % patch Apply 2 Patches as directed once daily. (Patient not taking: Reported on 10/16/2024) methocarbamol (ROBAXIN) 750 mg tablet Take 1 tablet by mouth three times daily as needed. (Patient not taking: Reported on 10/16/2024) bumetanide (BUMEX) 1 mg tablet Take 0.5-1 mg by mouth once daily as needed (edema). (Patient not taking: Reported on 10/16/2024) gabapentin (NEURONTIN) 100 mg capsule Take 100 mg by mouth three times d (more content not included)... [facility] 10-21-2024 [facility] HNO ID: [id number] Author: AL THOMPSON MD Service: General Internal Medicine Author Type: Nurse Practitioner Type: Discharge Summary Filed: 10/21/2024 21:53 Note Text: Attestation signed by Al Thompson MD at 10/21/2024 9:53 PM Jay DISCHARGE SUMMARY PATIENT NAME: Saeed Sarabia Code Status: Full Code Highest Readmission Risk Score: 28 The 30 day readmissions risk score is derived from an internally validated risk model which evaluates patient level characteristics, utilization history, medication orders and lab results up until the day of discharge. Patients with a score of 40 or above are considered highest risk for readmission. Specific patient level drivers will be listed at the bottom of the summary. Admission Information Admission Information ADMIT DATE: 10/16/2024 DISCHARGE DATE: 10/21/2024 MY DOCTORS AND MEDICAL TEAM: My Main Hospital Doctor: Al Thompson MD Primary Care Provider: Galindo Miller CNP, LAUNDRY AIDE My Medical Team Members: Treatment Team: Attending Provider: Al Thompson MD Nurse Practitioner: Rolanda Chaparro APRN.CNP MY CONDITION AT DISCHARGE: Stable REASON I WAS IN THE HOSPITAL: Altered mental status, abdominal pain SUMMARY OF WHAT HAPPENED WHILE I WAS IN THE HOSPITAL: Patient was admitted for Altered mental status, abdominal pain. Presented with altered mental status, unintentional weight loss. MRI Brain: - Negative for acute intracranial process CT Abdomen/Pelvis: 1. Bilateral nonobstructing renal calculi. 2. Suggestion of endometrial thickening measuring 15 mm. Recommend nonemergent pelvic ultrasound for further evaluation. Please follow up with your golf ball cover treater on an outpatient basis 3. Cholelithiasis. 4. Diverticulosis. Abdominal Ultrasound: - Cholelithiasis Right Lower Extremity Ultrasound: - Negative for deep vein thrombosis EEG: - Negative for seizures GI consulted and performed EGD: EGD: Impression: - Normal duodenal bulb and second portion of the duodenum. Biopsies were taken with a cold forceps to rule out Whipple's Disease. - Erythematous mucosa in the antrum. Biopsied. - Z-line, 38 cm from the incisors. - Normal esophagus. Vitamin B12 level low at 229. Cyanocobalamin 1000 mcg IM given 10/19/23. Please follow up with: Neurology Gastroenterology OTHER PROBLEMS/DIAGNOSIS: Principal Problem: Altered mental status Active Problems: Spinal stenosis Atrial fibrillation (HCC) Abdominal pain Malnutrition of moderate degree (HCC) Cellulitis of foot Weight loss Diarrhea 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 Delirium due to another medical condition Resolved Problems: * No resolved hospital problems. * OPERATIONS PERFORMED WHILE IN THE HOSPITAL: IMPORTANT TEST/PROCEDURES: EGD MRI CT Scan Biopsy TEST RESULTS NOT AVAILABLE AT THIS TIME: Biopsy results Discharge Disposition Home/Self Care Activity When You Leave the Hospital Activity Weight bearing as tolerated No walking restrictions Diet Instructions Diet Low cholesterol High protein diet with multi-vitamin supplementation Call Your Doctor If You have lightheadedness, fainting, or confusion You have persistent nausea/vomiting over 24 hours Your temperature is greater than 101F Additional Provider to Provider Information: 84 y/o with a history of paroxysmal Afib, hypertension and diabetes presents with complaints of mental status changes over the last 3 days, abdominal pain and unintentional weight loss. Recent admission in [place] for similar symptoms with negative CTH and MRI with improvement of symptoms.. Principal Problem: Altered mental status (POA: Yes) Delirium due to another medical condition (POA: Yes) - MRI Brain negative for acute intracranial process - EEG negative for seizure - GI performed EGD with biopsy fo rule out Whipples disease - Urine polyphobilinogen negative - Ammonia, Folate WNL - Follow up with neurology [facility] as an outpatient - Follow up with PCP, Geriatrics outpatient Active Problems: Atrial fibrillation (HCC) (POA: Yes) - Resume home Eliquis 5 mg PO BID - Resume home Metoprolol succinate 100 mg PO Daily Malnutrition of moderate degree (HCC) (POA: Yes) Weight loss (POA: Yes) Vitamin B12 Deficiency - Outpatient GI follow up - Start daily multivitamin -> reviewed high calorie/protein supplementation and taking MV every day - Vitamin B12 229 -> cyanocobalamin 1000 mcg IM x 1 given 10/19/24 - Follow up with PCP 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 (POA: Yes) - Ultrasound RLE negative for DVT - Cont. Gabapentin 100 mg PO TID Resolved Problems: * No resolved hospital problems. * Treatment Team: Attending Provider: Al Thompson MD (more content not included)... Normal [facility] CONSULT PROGon 10-21-2024 CONSULT PROG HNO ID: [id number] Author: DAI BHATT APRN.LEXI Service: Psychiatry Author Type: Nurse Practitioner Type: Consult Progress Note Filed: 10/21/2024 16:03 Note Text: CL FOLLOW UP - PSYCHIATRY CONSULTATION PROGRESS NOTE SERVICE DATE: October 21, 2024 SERVICE TIME: 1425 Visit Type: In person Some elements have been copied from previous notes, the elements have been updated and all reflect current decision making from today - October 21, 2024. My final impression and recommendations will be communicated back to the requesting physician by way of the shared medical record. Subjective PRESENT HISTORY: Saeed has not required any prn haloperidol. She reports she slept well overnight with scheduled qhs haldol. No depression, suicidality, psychotic symptoms. She had a robust appetite. She underwent egd today with biopsy to assess for whipple's disease. Her family feels she is improved compared to when she came in. Does Patient Have Any Suicidal Ideations: No MEDICATIONS: Current Facility-Administered Medications Medication Dose Route Frequency Provider Last Rate Last Admin lactated ringers iv infusion 50 mL/hr INTRAVENOUS CONTINUOUS Ramirez Solis MD 50 mL/hr at 10/21/24 1343 50 mL/hr at 10/21/24 1343 ipratropium-albuterol 3 mL nebulizer solution (DUONEB) 3 mL INHALATION PRN Ramirez Solis MD ondansetron 4 mg tab(s) (ZOFRAN) 4 mg ORAL q 6 H PRN Ramirez Solis MD Or ondansetron (PF) 4 mg injection (ZOFRAN) 4 mg INTRAVENOUS q 6 H PRN Ramirez Solis MD acetaminophen 650 mg tab(s) (TYLENOL) 650 mg ORAL PRN Ramirez Solis MD haloperidol 2 mg tab(s) (HALDOL) 2 mg ORAL AT BEDTIME Atul Crowder MD 2 mg at 10/20/24 2130 haloperidol 0.5 mg tab(s) (HALDOL) 0.5 mg ORAL DAILY PRN Atul Crowder MD ezetimibe 10 mg tab(s) (ZETIA) 10 mg ORAL DAILY Atul Crowder MD 10 mg at 10/21/241338 lisinopril 5 mg tab(s) (ZESTRIL) 5 mg ORAL DAILY Atul Crowder MD 5 mg at 10/20/242128 metoprolol succinate ER 100 mg tab(s) (TOPROL XL) 100 mg ORAL DAILY Atul Crowder MD 100 mg at 10/20/242131 rosuvastatin 5 mg tab(s) (CRESTOR) 5 mg ORAL DAILY Atul Crowder MD 5 mg at 10/21/241338 spironolactone 12.5 mg tab(s) (ALDACTONE) 12.5 mg ORAL DAILY Atul Crowder MD 12.5 mg at 10/21/241338 metFORMIN 500 mg tab(s) (GLUCOPHAGE) 500 mg ORAL BID w MEALS Atul Crowder MD 500 mg at 10/21/241338 pantoprazole DR 40 mg tab(s) (PROTONIX) 40 mg ORAL BID AC (0600/1600) Atul Crowder MD 40 mg at 10/21/24611 NaCl 0.9% iv flush bag 20 mL INTRAVENOUS PRN Atul Crowder MD senna-docusate 8.6-50 mg 1 tablet (SENNA-S) 1 tablet ORAL BID PRN Atul Crowder MD melatonin 6 mg tab(s) 6 mg ORAL AT BEDTIME PRN Atul Crowder MD 6 mg at 10/19/242020 ondansetron (PF) 4 mg injection (ZOFRAN) 4 mg INTRAVENOUS q 6 H PRN Atul Crowder MD acetaminophen 500-1,000 mg tab(s) (TYLENOL) 500-1,000 mg ORAL q 6 H PRN Atul Crowder MD 500 mg at 10/20/242131 dextrose 40 % 15 g 15 g ORAL PRN Atul Crowder MD Or glucagon 1 mg injection 1 mg INTRAMUSCULAR PRN Atul Crowder MD Or dextrose 10% iv bolus 12.5 g INTRAVENOUS PRN Atul Crowder MD insulin lispro injection (rapid acting) (ADMElog) SUBCUTANEOUS w MEALS AND HS Atul Crowder MD 1 Units at 10/20/242126 Objective LABS : Lab Results Component Value Date/Time WBC 6.98 10/20/2024 11:56 PM RBC 3.91 10/20/2024 11:56 PM HCT 36.0 10/20/2024 11:56 PM MCV 92.1 10/20/2024 11:56 PM MCH 30.4 10/20/2024 11:56 PM MCHC 33.1 10/20/2024 11:56 PM RDWCV 14.0 10/20/2024 11:56 PM PLT 278 10/20/2024 11:56 PM NEUTP 56.0 10/20/2024 11:56 PM LYMPHP 28.9 10/20/2024 11:56 PM MONOP 10.0 10/20/2024 11:56 PM EODINP 4.6 10/20/2024 11:56 PM BASOP 0.4 10/20/2024 11:56 PM ABSNEUT 3.90 10/20/2024 11:56 PM ABSMONO 0.70 10/20/2024 11:56 PM ABSEOSIN 0.32 10/20/2024 11:56 PM ABSBASO 0.03 10/20/2024 11:56 PM GLUC 135 (H) 10/20/2024 11:56 PM NA 137 10/20/2024 11:56 PM K 3.7 10/20/2024 11:56 PM CHLOR 99 10/20/2024 11:56 PM BUN 11 10/20/2024 11:56 PM CREAT 0.74 10/20/2024 11:56 PM MG 2.0 10/17/2024 06:28 AM TSH 0.103 (L) 10/17/2024 06:28 AM CO2 28 10/20/2024 11:56 PM TPROT 6.2 (L) 10/20/2024 11:56 PM ALB 3.5 (L) 10/20/2024 11:56 PM CA 9.0 10/20/2024 11:56 PM AST 20 10/20/2024 11:56 PM ALT 16 10/20/2024 11:56 PM ALKPHOS 58 10/20/2024 11:56 PM TBILI 0.3 10/20/2024 11:56 PM Vital Signs: 10/21/24 1115 10/21/24 1145 10/21/24 1217 10/21/24 1532 BP: 125/69 156/76 136/56 Pulse: 73 (!) 53 (!) 59 68 Resp: 8 18 18 Temp: 36.7 ?C (98.1 ?F) 36.9 ?C (98.4 ?F) TempSrc: Oral Oral SpO2: 100% 95% 96% 97% Weight: Height: PHYSICAL EXAMINATION: Muscle Tone/Strength: No Tremors, Rigidity, Hyperreflexia, or Clonus. Moved Extremities Against [place]. Gait / Station: Unable to Examine: sitting in a chair at the bedside MENTAL STATUS EXAMINATION: Appearance: In hospital gown, well groomed, good eye contact, and sitting in chair at the bedside Beh (more content not included)... Normal [facility] HISTORY PHYSICALon HISTORY PHYSICAL HNO ID: [id number] Author: ATUL CROWDER MD Service: Gastroenterology Author Type: Physician Type: H&P Filed: 10/21/2024 08:02 Note Text: HISTORY AND PHYSICAL Saeed Sarabia, 84 year old female with PMH afib(eliquis), HTN, DM-type II, and gastric/duodenal ulcers (09/2024) who presented to ED 10/16 for mental status change x 3 days, abdominal pain/distention. GI consulted for evaluation of intermittent confusion, abdominal pain. EGD performed to rule out Whipple Disease. Current history and physical on file: Yes Is a new History and Physical required for today's visit? No Indication for procedure: Other rule out Whipple Disease. PROCEDURE(S) SCHEDULED FOR: EGD (Esophagogastroduodeno scopy) with or without biopsies, removal of polyps or lesions, dilation ( any means), treatment of bleeding ( any means), Barrx treatment of Fawad's Esophagus, image tube placement or cryo therapy treatment based on clinical findings. BASELINE BEHAVIOR: Calm BASELINE ORIENTATION: A AND O x3 All medications and allergies reviewed: Yes Skin Assessment: Warm dry mucus membranes pink Airway/Respiratory Assessment: Airway: visualization of the uvula- Yes Mouth: opening greater than 2 fingerbreadths- Yes Neck: full range of motion- Yes Breath sounds clear/equal- Yes Cardiac Assessment: Regular rate and rhythm without murmur Abdominal Assessment: Abdomen soft, non-tender, no masses or organomegaly. Sedation Plan: MAC Additional Comments: None Atul Crowder MD [facility] NURSING PROGon 10-21-2024 NURSING PROG HNO ID: [id number] Author: JOIE FUENTES, RN Service: Nursing Author Type: Registered Nurse Type: Nursing Progress Note Filed: 10/21/2024 10:10 Note Text: PATIENT EDUCATION TOPIC: PROCEDURE / SURGERY: Pre Procedure Teaching: EGD PATIENT NAME: Saeed Sarabia PATIENT LOCATION: [facility] ENDO POOL/[facility] ENDO POOL READINESS TO LEARN COGNITIVE ABILITY: Alert and orientedx1 MOTIVATION TO LEARN: Interested FAMILY SUPPORT: High - Very involved in pt care INSTRUCTION PROVIDED TO: Patient, Family member, and Caregiver PATIENT LEARNS BEST BY: Individual Instruction FACTORS AFFECTING LEARNING: None PHYSICAL LIMITATIONS AFFECTING LEARNING: None LEARNING RESPONSE DIAGNOSIS: ADULT: Well Adult PATIENT/FAMILY RESPONSE: Verbalizes understanding of: PRE-PROCEDURE INSTRUCTIONS-Correct action to take to follow pre-procedure instructions METHOD OF INSTRUCTION: Individual instruction FOLLOW-UP PLAN: Complete - No need for follow-up INSTRUCTIONAL AIDS USED: NA SUPPLEMENTAL MATERIAL PROVIDED TO PATIENT: None REFERRAL (RECOMMENDATION): None Electronically Signed By: Joie Fuentes [facility] SURGICAL PATHOLOGYon 025 CASE REPORT [facility] Comment on above: Order Comment: Akilah nieto Type: TISSUE SPECIMENOrdering Facility: [facility] Address: [address] [place] [address] Result Comment: Surg ical Pathology Report Case: [id number] Authorizing Provider: Atul Crowder MD Collected: 10/21/2024 10:59 AM Ordering Location: [facility] Received: 10/21/2024 12:39 PM Endoscopy - ENDO Pathologist: Ned Michel MD Specimens: A) - Small Bowel, Duodenum, Biopsy, Jar A, R/O Whipple's Disease B) - Stomach, Biopsy, Jar B R/O H.Pylori Performed By: #### S ####[facility] LABCLIA [id number] [place] [address] [place] FINAL DIAGNOSIS [facility] Comment on above: Order Comment: Speci men Type: TISSUE SPECIMENOrdering Facility: [facility] Address: [address] [place] [address] Result Comment: AKen Mercado uodenum, biopsy: - Duodenal mucosa with no significant pathologic change. B. Stomach, biopsy: - Gastric antral and oxyntic-type mucosa with mild reactive epithelial changes and histologic features consistent with proton pump inhibitor use. - No intestinal metaplasia or morphologic evidence of Helicobacter pylori organisms. Performed By: #### S ####[facility] LABCLIA [id number] [address] STATES OF [facility] FINAL PERFORMING LAB Normal [facility] Comment on above: Order Comment: Speci men Type: TISSUE SPECIMENOrdering Facility: [facility] Address: [address] [place] [address] Result Comment: Diag nostic interpretation performed at: [facility], [address] [place] [address] CLIA# [id number] Roller Varnisher: Liam Naik MD Performed By: #### S ####[facility] LABCLIA [id number] [address] GROSS DESCRIPTION Normal [facility] Comment on above: Order Comment: Speci [facility] Type: TISSUE SPECIMENOrdering Facility: [facility] Address: [address] [place] [address] Result Comment: A. S mall Bowel, Duodenum, Biopsy Received in formalin are multiple pieces of frank, soft tissue aggregating to 1.2 x 0.2 x 0.2 cm. Totally submitted in one cassette. B. Stomach, Biopsy Received in formalin are multiple pieces of frank, soft tissue aggregating to 0.9 x 0.3 x 0.2 cm. Totally submitted in one cassette. Gross examination performed at [facility], [address] [place] [address] KK October 21, 2024 5:42 PM Performed By: #### S ####[facility] LABCLIA [id number] [address] [address] [place] Upper GI endoscopyon 025 Upper GI endoscopy [facility] Gastrointestinal Endoscopy Patient Name: Saeed Sarabia Procedure Date: 10/21/2024 10:40 AM Date of : 1940 Admit Type: Inpatient Age: 84 Room: [place] [address] Gender: Female Note Status: Finalized Attending MD: Atul Crowder MD, [id number] Procedure: Upper GI endoscopy Indications: Dyspepsia Providers: Atul Crowder MD, Tatiana Barboza, ELFEGO, Urvashi Pacheco, ELFEGO (Assisting Nurse) Patient Profile: This is an 84 year old female with PMH afib(eliquis), HTN, DM-type II, and gastric/duodenal ulcers (09/2024) who presented to ED 10/16 for mental status change x 3 days, abdominal pain/distention. GI consulted for evaluation of intermittent confusion, abdominal pain. EGD performed to rule out Whipple Disease. Refer to note in patient chart for documentation of history and physical. Referring Physician: Ned Gonzales (event attendant) Anthony (Referring MD) Medicines: Monitored Anesthesia Care Complications: No immediate complications. Procedure: Pre-Anesthesia Assessment: - Prior to the procedure, a History and Physical was performed, and patient medications and allergies were reviewed. The patient's tolerance of previous anesthesia was also reviewed. The risks and benefits of the procedure and the sedation options and risks were discussed with the patient. All questions were answered, and informed consent was obtained. Prior Anticoagulants: The patient has taken Eliquis (apixaban), last dose was 3 days prior to procedure. ASA Grade Assessment: III - A patient with severe systemic disease. After reviewing the risks and benefits, the patient was deemed in satisfactory condition to undergo the procedure. After obtaining informed consent, the endoscope was passed under direct vision. Throughout the procedure, the patient's blood pressure, pulse, and oxygen saturations were monitored continuously. The Endoscope was introduced through the mouth, and advanced to the second part of duodenum. The upper GI endoscopy was accomplished without difficulty. The patient tolerated the procedure well. Moderate Sedation: MAC anesthesia was administered by the anesthesia team. Total Procedure Duration: 0 hours 5 minutes 38 seconds Findings: The duodenal bulb and second portion of the duodenum were normal. Biopsies were taken with a cold forceps to rule out Whipple's Disease. The pathology specimen was placed into Bottle A. Patchy mildly erythematous mucosa without bleeding was found in the gastric antrum. Biopsies were taken with a cold forceps for {skip} . The pathology specimen was placed into Bottle B. The exam of the stomach was otherwise normal. The Z-line was found 38 cm from the incisors. The examined esophagus was normal. Impression: - Normal duodenal bulb and second portion of the duodenum. Biopsies were taken with a cold forceps to rule out Whipple's Disease. - Erythematous mucosa in the antrum. Biopsied. - Z-line, 38 cm from the incisors. - Normal esophagus. Recommendation: - Return patient to [facility] for [facility] care. - Resume previous diet. - Continue present medications. - The patient is not currently taking anticoagulant or antiplatelet agents. Procedure Code(s): --- Professional --- 34427, Esophagogastroduodenos copy, flexible, transoral; with biopsy, single or multiple Diagnosis Code(s): --- Professional --- K31.89, Other diseases of stomach and duodenum R10.13, Epigastric pain CPT copyright 2020 [employer]. All rights reserved. The codes documented in this report are preliminary and upon laminate floor installer review may be revised to meet current compliance requirements. Attending Participation: I personally performed the entire procedure. Scope In: 10:59:20 AM Scope Out: 11:04:58 AM MD Atlu Dumas MD 10/21/2024 11:15:51 AM This report has been signed electronically by Atul Crowder MD Number of Addenda: 0 Note Initiated On: 10/21/2024 10:40 AM Estimated Blood Loss: Estimated blood loss was minimal. Normal [facility] CBC W Auto Differential pane l (Bld)on 10-20-2024 Basophils (Bld) [#/Vol] 0.03 10*3/uL Normal <0.11 [facility] Comment on above: Order Comment: Speci men Type: BLOOD SPECIMENOrdering Facility: [facility] Address: [address] [place] [address] Performed By: #### 5 7021-8 ####[facility]ORATORYCLIA [id number] [place] [address] [place] Basophils/100 WBC (Bld) 0.4 % Normal [facility] Comment on above: Order Comment: Speci men Type: BLOOD SPECIMENOrdering Facility: [facility] Address: [address] [place] [address] Performed By: #### 5 7021-8 ####[facility]ORATORYCLIA [id number] [place] [address] [place] Differential cell count method Nom (Bld) Auto Normal [facility] Comment on above: Order Comment: Speci men Type: BLOOD SPECIMENOrdering Facility: [facility] Address: [address] [place] [address] Performed By: #### 5 7021-8 ####[facility] LABORATORYCLIA [id number] [place] [address] [place] Eosinophils (Bld) [#/Vol] 0.32 10*3/uL Normal <0.46 [facility] Comment on above: Order Comment: Speci men Type: BLOOD SPECIMENOrdering Facility: [facility] Address: [address] [place] [address] Performed By: #### 5 7021-8 ####[facility] LABORATORYCLIA [id number] [address] [place] Eosinophils/100 WBC (Bld) 4.6 % Normal [facility] Comment on above: Order Comment: Speci men Type: BLOOD SPECIMENOrdering Facility: [facility] Address: [address] [place] [address] Performed By: #### 5 7021-8 ####[facility] LABORATORYCLIA [id number] [place] [address] [place] Erythrocyte distribution width (RBC) [Ratio] 14.0 % Normal 11.5-15.0 [facility] Comment on above: Order Comment: Speci men Type: BLOOD SPECIMENOrdering Facility: [facility] Address: [address] [place] [address] Performed By: #### 5 7021-8 ####[facility] LABORATORYCLIA [id number] [place] [address] [place] Hematocrit (Bld) [Volume fraction] 36.0 % Normal 36.0-46.0 [facility] Comment on above: Order Comment: Speci men Type: BLOOD SPECIMENOrdering Facility: [facility] Address: [address] [place] [address] Performed By: #### 5 7021-8 ####[facility] LABORATORYCLIA [id number] [place] [id number] [place] Hemoglobin (Bld) [Mass/Vol] 11.9 g/dL Normal 11.5-15.5 [facility] Comment on above: Order Comment: Speci men Type: BLOOD SPECIMENOrdering Facility: [facility] Address: [address] [place] [address] Performed By: #### 5 7021-8 ####[facility] LABORATORYCLIA [id number] [place] [address] [place] Immature granulocytes (Bld) [#/Vol] 10*3/uL Normal <0.10 [facility] Comment on above: Order Comment: Speci men Type: BLOOD SPECIMENOrdering Facility: [facility] Address: [address] [place] [address] Performed By: #### 5 7021-8 ####[facility] LABORATORYCLIA [id number] [place] [address] [place] Immature granulocytes/100 WBC (Bld) 0.1 % Normal [facility] Comment on above: Order Comment: Speci men Type: BLOOD SPECIMENOrdering Facility: [facility] Address: [address] [place] [address] Performed By: #### 5 7021-8 ####[facility] LABORATORYCLIA [id number] [place] [id number] [place] Lymphocytes (Bld) [#/Vol] 2.02 10*3/uL Normal 1.00-4.00 [facility] Comment on above: Order Comment: Speci men Type: BLOOD SPECIMENOrdering Facility: [facility] Address: [address] [place] [address] Performed By: #### 5 7021-8 ####[facility] LABORATORYCLIA [id number] [address] [place] Lymphocytes/100 WBC (Bld) 28.9 % Normal [facility] Comment on above: Order Comment: Speci men Type: BLOOD SPECIMENOrdering Facility: [facility] Address: [address] [place] [address] Performed By: #### 5 7021-8 ####[facility] LABORATORYCLIA [id number] [address] MCH (RBC) [Entitic mass] 30.4 pg Normal 26.0-34.0 [facility] Comment on above: Order Comment: Speci men Type: BLOOD SPECIMENOrdering Facility: [facility] Address: [address] [place] [address] Performed By: #### 5 7021-8 ####[facility] LABORATORYCLIA [id number] [address] [place] MCHC (RBC) [Mass/Vol] 33.1 g/dL Normal 30.5-36.0 [facility] Comment on above: Order Comment: Speci men Type: BLOOD SPECIMENOrdering Facility: [facility] Address: [address] [place] [address] Performed By: #### 5 7021-8 ####[facility] LABORATORYCLIA [id number] [address] [place] MCV (RBC) [Entitic vol] 92.1 fL Normal 80.0-100.0 [facility] Comment on above: Order Comment: Speci men Type: BLOOD SPECIMENOrdering Facility: [facility] Address: [address] [place] [address] Performed By: #### 5 7021-8 ####[facility] LABORATORYCLIA [id number] [address] Monocytes (Bld) [#/Vol] 0.70 10*3/uL Normal <0.87 [facility] Comment on above: Order Comment: Speci men Type: BLOOD SPECIMENOrdering Facility: [facility] Address: [address] [place] [address] Performed By: #### 5 7021-8 ####[facility] LABORATORYCLIA [id number] [place] [id number] [place] Monocytes/100 WBC (Bld) 10.0 % Normal [facility] Comment on above: Order Comment: Speci men Type: BLOOD SPECIMENOrdering Facility: [facility] Address: [address] [place] [address] Performed By: #### 5 7021-8 ####[facility] LABORATORYCLIA [id number] [place] [id number] [place] Neutrophils (Bld) [#/Vol] 3.90 10*3/uL Normal 1.45-7.50 [facility] Comment on above: Order Comment: Speci men Type: BLOOD SPECIMENOrdering Facility: [facility] Address: [address] [place] [address] Performed By: #### 5 7021-8 ####[facility] LABORATORYCLIA [id number] [place] [id number] [place] Neutrophils/100 WBC (Bld) 56.0 % Normal [facility] Comment on above: Order Comment: Speci men Type: BLOOD SPECIMENOrdering Facility: [facility] Address: [address] [place] [address] Performed By: #### 5 7021-8 ####[facility] LABORATORYCLIA [id number] [place] [id number] [place] Nucleated RBC (Bld) [#/Vol] 10*3/uL Normal <0.01 [facility] Comment on above: Order Comment: Speci men Type: BLOOD SPECIMENOrdering Facility: [facility] Address: [address] [place] [address] Performed By: #### 5 7021-8 ####[facility] LABORATORYCLIA [id number] [place] [id number] [place] Nucleated RBC/100 WBC (Bld) [Ratio] 0.0 /100 WBC Normal [facility] Comment on above: Order Comment: Speci men Type: BLOOD SPECIMENOrdering Facility: [facility] Address: [address] [place] [address] Performed By: #### 5 7021-8 ####[facility] LABORATORYCLIA [id number] [place] [id number] [place] Platelet mean volume (Bld) [Entitic vol] 9.4 fL Normal 9.0-12.7 [facility] Comment on above: Order Comment: Speci men Type: BLOOD SPECIMENOrdering Facility: [facility] Address: [address] [place] [address] Performed By: #### 5 7021-8 ####[facility] LABORATORYCLIA [id number] [place] [id number] [place] Platelets (Bld) [#/Vol] 278 10*3/uL Normal 150-400 [facility] Comment on above: Order Comment: Speci men Type: BLOOD SPECIMENOrdering Facility: [facility] Address: [address] [place] [address] Performed By: #### 5 7021-8 ####[facility] LABORATORYCLIA [id number] [place] [id number] [place] RBC (Bld) [#/Vol] 3.91 10*6/uL Normal 3.90-5.20 [facility] Comment on above: Order Comment: Speci men Type: BLOOD SPECIMENOrdering Facility: [facility] Address: [address] [place] [address] Performed By: #### 5 7021-8 ####[facility] LABORATORYCLIA [id number] [place] [id number] [place] WBC (Bld) [#/Vol] 6.98 10*3/uL Normal 3.70-11.00 [facility] Comment on above: Order Comment: Speci men Type: BLOOD SPECIMENOrdering Facility: [facility] Address: [address] [place] [address] Performed By: #### 5 7021-8 ####[facility] LABORATORYCLIA [id number] [place] [id number] [place] CONSULTon 10-20-2024 CONSULT HNO ID: [id number] Author: PUJA PEREZ MD Service: Psychiatry Author Type: Physician Type: Consults Filed: 10/20/2024 11:47 Note Text: [facility] - PSYCHIATRY INITIAL CONSULTATION NOTE SERVICE DATE: October 20, 2024 SERVICE TIME: 7:17 AM Visit Type: In person CONSULTING SERVICE : Psychiatry, requested by REASON FOR CONSULTATION: Delirium. Subjective IDENTIFYING INFO: Ms. Sarabia is a 84 year old female from [place], [place] HISTORY OF PRESENT ILLNESS : Patient is 84 yo female presenting with AMS with no past psychiatry history. Daughter is at her side and she provided most of history Patient had an UTI 1 months ago and after she started to getting confused with visual hallucination seeing bugs . Patient received ATB and she was improving until 4 days ago when she started with confusion Patient denied symptoms of depression/ panic disorder. OCD/ PTSD/ Psychosis/ substance use disorder No previous hospitalizations. No previous SA. No self mutilation behaviors Denied CURRENT SI/HI Does Patient Have Any Suicidal Ideations: No STRESSORS: being hospitalized COLLATERAL INFORMATION: Her daughter see HPI PSYCHIATRIC REVIEW OF SYMPTOMS: Pertinent Positives: see HPI The remainder was reviewed and unremarkable. MEDICAL REVIEW OF SYSTEMS: Pertinent Positives: The remainder was reviewed and unremarkable. PSYCHIATRIC HISTORY: Diagnoses: None Current Psychiatrist: None Current Therapist: None Psychiatric Hospitalization(s): None History of Suicide Attempts: None Previous Psychiatric Medication Trials: none Current Outpatient Psychiatric Medications: none SUBSTANCE ABUSE HISTORY: Alcohol: No history of use or dependence Marijuana: No history of use or dependence Cocaine: No history of use or dependence Opioids: No history of use or dependence Other Substance Use: No history of use or dependence SOCIAL HISTORY: Childhood: pretty good Relationships: x 62 years Children: Yes, (4) adult children - maintains Very Good relationship Living Situation: lives with Education: High school Employment: Retired Current Supports: spouse/partner and adult children Legal History: Denied Worship Affiliation(s): none Abuse History: She denied a history of emotional, physical or sexual abuse, or any history of trauma. FAMILY PSYCHIATRIC HISTORY: ?? Dementia (Father) No family history on file. No past medical history on file. No past surgical history on file. Current Facility-Administered Medications Medication Dose Route Frequency ezetimibe 10 mg tab(s) (ZETIA) 10 mg ORAL DAILY lisinopril 5 mg tab(s) (ZESTRIL) 5 mg ORAL DAILY metoprolol succinate ER 100 mg tab(s) (TOPROL XL) 100 mg ORAL DAILY rosuvastatin 5 mg tab(s) (CRESTOR) 5 mg ORAL DAILY spironolactone 12.5 mg tab(s) (ALDACTONE) 12.5 mg ORAL DAILY metFORMIN 500 mg tab(s) (GLUCOPHAGE) 500 mg ORAL BID w MEALS pantoprazole DR 40 mg tab(s) (PROTONIX) 40 mg ORAL BID AC (0600/1600) NaCl 0.9% iv flush bag 20 mL INTRAVENOUS PRN senna-docusate 8.6-50 mg 1 tablet (SENNA-S) 1 tablet ORAL BID PRN melatonin 6 mg tab(s) 6 mg ORAL AT BEDTIME PRN ondansetron (PF) 4 mg injection (ZOFRAN) 4 mg INTRAVENOUS q 6 H PRN acetaminophen 500-1,000 mg tab(s) (TYLENOL) 500-1,000 mg ORAL q 6 H PRN dextrose 40 % 15 g 15 g ORAL PRN Or glucagon 1 mg injection 1 mg INTRAMUSCULAR PRN Or dextrose 10% iv bolus 12.5 g INTRAVENOUS PRN insulin lispro injection (rapid acting) (ADMElog) SUBCUTANEOUS w MEALS AND HS ALLERGIES Allergen Reactions Morphine GI Upset Objective VITAL SIGNS: 10/19/24 1527 10/19/24 1911 10/19/24 2253 10/20/24 0516 BP: 159/68 162/79 132/64 163/71 Pulse: 70 70 (!) 58 65 Resp: 18 20 16 18 Temp: 36.4 ?C (97.5 ?F) 37.1 ?C (98.8 ?F) 37.1 ?C (98.8 ?F) 36.7 ?C (98.1 ?F) TempSrc: Oral Oral Oral Oral SpO2: 98% 95% 100% 95% Weight: Height: PHYSICAL EXAMINATION: Muscle Tone/Strength: No Tremors, Rigidity, Hyperreflexia, or Clonus. Moved Extremities Against [place]. Gait / Station: Not assessed MENTAL STATUS EXAMINATION: Appearance: In hospital gown, well groomed, good eye contact Behavior: Engaged readily, cooperative, appropriate. Psychomotor: No psychomotor agitation. Cognition: Level of Consciousness: Awake and alert. No fluctuation in wakefulness. Orientation: Person Memory: Mildly impaired Attention/Concentratio n: Fair Fund of Knowledge: Able to demonstrate an awareness of current events. Mood: Euthymic Affect: Mood-congruent and reactive within a normal range. Speech/Language: Appropriate tone, prosody, radha, phonetics, and syntax Thought Form: Goal directed. No Loosening of associations Thought Content: No delusions. Perceptual disturbances: No hallucinations. Safety: Suicidal Ideations: No suicidal ideation, intent or plan. Homicidal Ideations: No homicidal ideation, intent or plan. Insight: Recognized the presence of illnes (more content not included)... Normal [facility] Comprehensive metabolic 2000 panelon 10-20-2024 Albumin [Mass/Vol] 3.5 g/dL Low 3.9-4.9 [facility] Comment on above: Order Comment: Speci men Type: BLOOD SPECIMENOrdering Facility: [facility] Address: [address] [place] [address] Performed By: #### 2 4323-8 ####[facility] LABORATORYCLIA [id number] [place] [address] [place] ALP [Catalytic activity/Vol] 58 U/L Normal 34-123 [facility] Comment on above: Order Comment: Speci men Type: BLOOD SPECIMENOrdering Facility: [facility] Address: [address] [place] [address] Performed By: #### 2 4323-8 ####[facility] LABORATORYCLIA [id number] [place] [id number] [place] ALT [Catalytic activity/Vol] 16 U/L Normal 7-38 [facility] Comment on above: Order Comment: Speci men Type: BLOOD SPECIMENOrdering Facility: [facility] Address: [address] [place] [address] Performed By: #### 2 4323-8 ####[facility] LABORATORYCLIA [id number] [place] [id number] [place] Anion gap [Moles/Vol] 10 mmol/L Normal 8-15 [facility] Comment on above: Order Comment: Speci men Type: BLOOD SPECIMENOrdering Facility: [facility] Address: [address] [place] [address] Performed By: #### 2 4323-8 ####[facility] LABORATORYCLIA [id number] [place] [id number] [place] AST [Catalytic activity/Vol] 20 U/L Normal 13-35 [facility] Comment on above: Order Comment: Speci men Type: BLOOD SPECIMENOrdering Facility: [facility] Address: [address] [place] [address] Performed By: #### 2 4323-8 ####[facility] LABORATORYCLIA [id number] [place] [address] [place] Bilirubin [Mass/Vol] 0.3 mg/dL Normal 0.2-1.3 [facility] Comment on above: Order Comment: Speci men Type: BLOOD SPECIMENOrdering Facility: [facility] Address: [address] [place] [address] Performed By: #### 2 4323-8 ####[facility] LABORATORYCLIA [id number] [place] [address] [place] Calcium [Mass/Vol] 9.0 mg/dL Normal 8.5-10.2 [facility] Comment on above: Order Comment: Speci men Type: BLOOD SPECIMENOrdering Facility: [facility] Address: [address] [place] [address] Performed By: #### 2 4323-8 ####[facility] LABORATORYCLIA [id number] [place] [address] [place] Chloride [Moles/Vol] 99 mmol/L Normal 98-107 [facility] Comment on above: Order Comment: Speci men Type: BLOOD SPECIMENOrdering Facility: [facility] Address: [address] [place] [address] Performed By: #### 2 4323-8 ####[facility] LABORATORYCLIA [id number] [place] [id number] [place] CO2 [Moles/Vol] 28 mmol/L Normal 22-30 [facility] Comment on above: Order Comment: Speci men Type: BLOOD SPECIMENOrdering Facility: [facility] Address: [address] [place] [address] Performed By: #### 2 4323-8 ####NIMIT[facility] LABORATORYCLIA [id number] [place] [id number] [place] Creatinine [Mass/Vol] 0.74 mg/dL Normal 0.58-0.96 [facility] Comment on above: Order Comment: [facility] Type: BLOOD SPECIMENOrdering Facility: [facility] Address: [address] [place] [address] Performed By: #### 2 4323-8 ####NIMITZ LABORATORYCLIA [id number] [place] [id number] [place] Creatinine and Glomerular filtration rate.predicted panel (S/P/Bld) 80 mL/min/1.73m??? Normal >=60 [facility] Comment on above: Order Comment: [facility] Type: BLOOD SPECIMENOrdering Facility: [facility] Address: [address] [place] [address] Result Comment: Roz mated Glomerular Filtration Rate [...] reflect actual GFR. Performed By: #### 2 4323-8 ####NIMITZ LABORATORYCLIA [id number] [place] [id number] [place] Glucose [Mass/Vol] 135 mg/dL High 74-99 [facility] Comment on above: Order Comment: [facility] Type: BLOOD SPECIMENOrdering Facility: [facility] Address: [address] [place] [address] Result Comment: The [place] [employer] (ADA) provides guidance for cutoff [...] Standards of Medical Care in Diabetes 2016, [place] [employer]. Diabetes Care. 2016.39(Suppl 1). Performed By: #### 2 4323-8 ####[facility] LABORATORYCLIA [id number] [place] [id number] [place] Potassium [Moles/Vol] 3.7 mmol/L Normal 3.7-5.1 [facility] Comment on above: Order Comment: Speci men Type: BLOOD SPECIMENOrdering Facility: [facility] Address: [address] [place] [address] Performed By: #### 2 4323-8 ####[facility] LABORATORYCLIA [id number] [place] [address] [place] Protein [Mass/Vol] 6.2 g/dL Low 6.3-8.0 [facility] Comment on above: Order Comment: Speci men Type: BLOOD SPECIMENOrdering Facility: [facility] Address: [address] [place] [address] Performed By: #### 2 4323-8 ####[facility] LABORATORYCLIA [id number] [place] [id number] [place] Sodium [Moles/Vol] 137 mmol/L Normal 136-144 [facility] Comment on above: Order Comment: Speci men Type: BLOOD SPECIMENOrdering Facility: [facility] Address: [address] [place] [address] Performed By: #### 2 4323-8 ####N[facility] LABORATORYCLIA [id number] [place] [id number] [place] Urea nitrogen [Mass/Vol] 11 mg/dL Normal 7-21 [facility] Comment on above: Order Comment: Speci men Type: BLOOD SPECIMENOrdering Facility: [facility] Address: [address] [place] [address] Performed By: #### 2 4323-8 ####[facility] LABORATORYCLIA [id number] [place] [address] [place] HISTORY PHYSICALon HISTORY PHYSICAL HNO ID: [id number] Author: AL THOMPSON MD Service: ? Author Type: Physician Type: H&P Filed: 10/20/2024 19:06 Note Text: INTERNAL MEDICINE HANDP EXAMINATION SERVICE DATE: 10/20/2024 SERVICE TIME: 6:22 PM PRIMARY CARE PHYSICIAN: Galindo Miller, LAUNDRY AIDE, LAUNDRY AIDE CHIEF COMPLAINT Recurrent encephalopathy HISTORY OF PRESENT ILLNESS HPI: Ms. Sarabia is a 84 year old female who presents with recurrent encephalopathy. Patient has PMHx of HTN, HLD, DM-2, GERD, HFpEF (LVEF 64%), and Atrial fibrillation (Eliquis). Patient came in from [place] on 10/16/2024 for recurrent mental status change, with hallucinations. History was taken from her at bedside. On 09/17/2024 patient was evaluated for similar complaint at [facility] (acute mental status change with hallucinations). She was also complaining of abdominal pain and 30 pound involuntary weight loss. During the above admission, she was evaluated by neurology, and brain CT as well as MRI with no acute finding to explain her symptoms. Symptoms resolved with UTI treatment and patient was discharged home with improved mental status. Patient now comes back with recurrent mental status change and hallucination. According to her , prior to [facility] admission patient was totally functional able to do all of her ADLs without assistance. In ED temperature 36.6, heart rate of 64, blood pressure 123/71, SpO2 96% on room air. EKG shows NSR with LBBB. Lab results initially within normal limits except for magnesium 1.6, TSH 0.103, urine tox screen is negative, B12 229, folic acid 14.7, WBC 5.4, hemoglobin 11.8, platelet count 246. UA was negative. CXR. Patchy bibasilar atelectasis/infiltrate . Brain MRI. No acute intracranial process or mass. Chronic changes as described. CT abdomen pelvis. Bilateral nonobstructing renal calculi. Suggestion of endometrial thickening measuring 15 mm. Recommend nonemergent pelvic ultrasound for further evaluation. Cholelithiasis. Diverticulosis. Right upper quadrant ultrasound. CHOLELITHIASIS. Right lower extremity venous duplex scan. Negative study for proximal DVT in the right lower extremity. Negative study for calf DVT in the right lower extremity. Negative study for superficial thrombophlebitis in the imaged segments of the right lower extremity. MEDICAL/SURGICAL HISTORY No past medical history on file. No past surgical history on file. No family history on file. MEDICATIONS pantoprazole DR (PROTONIX) 40 mg tablet, TAKE 1 TABLET BY MOUTH TWICE DAILY (IN THE MORNING and IN THE EVENING) BEFORE MEALS, Disp: , Rfl: metFORMIN (GLUCOPHAGE) 500 mg tablet, Take 1 tablet by mouth twice daily with meals., Disp: , Rfl: apixaban (ELIQUIS) 5 mg tab(s), Take 1 tablet by mouth twice daily., Disp: , Rfl: acetaminophen (TYLENOL) 325 mg tablet, 2 tablets by ORAL/FEEDING TUBE route every 4 hours as needed for pain or fever (specify)., Disp: , Rfl: dextrose (TRUEPLUS) 15 gram/32 mL oral gel, Take 32 mL by mouth as needed. (Patient not taking: Reported on 10/16/2024), Disp: , Rfl: docusate sodium (COLACE) 100 mg capsule, Take 1 capsule by mouth twice daily. (Patient not taking: Reported on 10/16/2024), Disp: , Rfl: lidocaine (SALONPAS) 4 % patch, Apply 2 Patches as directed once daily. (Patient not taking: Reported on 10/16/2024), Disp: , Rfl: methocarbamol (ROBAXIN) 750 mg tablet, Take 1 tablet by mouth three times daily as needed. (Patient not taking: Reported on 10/16/2024), Disp: , Rfl: bumetanide (BUMEX) 1 mg tablet, Take 0.5-1 mg by mouth once daily as needed (edema). (Patient not taking: Reported on 10/16/2024), Disp: , Rfl: gabapentin (NEURONTIN) 100 mg capsule, Take 100 mg by mouth three times daily. (Patient not taking: Reported on 10/16/2024), Disp: , Rfl: ezetimibe (ZETIA) 10 mg tablet, Take 10 mg by mouth once daily., Disp: , Rfl: lisinopril (ZESTRIL, PRINIVIL) 5 mg tablet, Take 20 mg by mouth once daily., Disp: , Rfl: metoprolol succinate ER (TOPROL XL) 100 mg, Take 100 mg by mouth once daily., Disp: , Rfl: rosuvastatin (CRESTOR) 5 mg tablet, Take 5 mg by mouth once daily., Disp: , Rfl: glipiZIDE (GLUCOTROL) 5 mg tablet, Take 5 mg by mouth twice daily before meals., Disp: , Rfl: spironolactone (ALDACTONE) 25 mg tablet, Take 12.5 mg by mouth once daily., Disp: , Rfl: ALLERGIES ALLERGIES Allergen Reactions Morphine GI Upset COMPLETE REVIEW OF SYSTEMS GENERAL: No weight loss, malaise or fevers RESPIRATORY: Negative for cough, hemoptysis, wheezing, COPD, dyspnea or shortness of breath CARDIOVASCULAR: Negative for chest pain, leg swelling, hypertension, CHF or palpitations GI: No nausea, vomiting, or diarrhea : No history of dysuria, frequency or incontinence MUSCULOSKELETAL: Negative for joint pain or swelling, back pain or muscle pain SKIN: Negative for lesions, rash, and itching NEURO: No history of headaches, syncope, paralysis, seizu (more content not included)... Normal [facility] NURSING PROGon 10-20-2024 NURSING PROG HNO ID: [id number] Author: RED COVINGTON RN Service: Nursing Author Type: Registered Nurse Type: Nursing Progress Note Filed: 10/20/2024 09:38 Note Text: Nursing Progress Note: AANDO x 3, pleasant and cooperative.VSS; Afebrile. Meds given as ordered, pills whole with water (see MAR). Voiced no complaints of pain at this time, resting quietly. PT up with 1 assist and a walker, gait unsteady. Safety maintained at this time, call light and personal belongings in reach, bed locked and lowered. PT states no other needs at this time. Normal [facility] CREATININE BLDon 10-19-2024 Creatinine [Mass/Vol] 0.70 mg/dL Normal 0.58-0.96 [facility] Comment on above: Order Comment: Speci men Type: BLOOD SPECIMENOrdering Facility: [facility] Address: [address] [place] [address] Performed By: #### 3 024-7, CRET1, 3051-0 ####[facility] LABCLIA [id number] [place] [address] [place] Creatinine and Glomerular filtration rate.predicted panel (S/P/Bld) 85 mL/min/1.73m??? Normal >=60 [facility] Comment on above: Order Comment: Akilah nieto Type: BLOOD SPECIMENOrdering Facility: [facility] Address: [address] [place] [address] Result Comment: Roz mated Glomerular Filtration Rate [...] accurately reflect actual GFR. Performed By: #### 3 024-7, CRET1, 3051-0 ####[facility] LABIA [id number] [place] [address] [place] [facility]19 25 Folate [Mass/Vol] 14.7 ng/mL Normal >4.7 [facility] Comment on above: Order Comment: Akilah nieto Type: BLOOD SPECIMENOrdering Facility: [facility] Address: [address] [place] [address] Performed By: #### 2 284-8, 2132-9 ####[facility] LABORATORYCLIA [id number] [place] [address] [place] NURSING PROGon 10-19-2024 NURSING PROG HNO ID: [id number] Author: RED COVINGTON, ELFEGO Service: Nursing Author Type: Registered Nurse Type: Nursing Progress Note Filed: 10/19/2024 10:09 Note Text: Nursing Progress Note: AANDO x 2, DO to time, pleasant and cooperative.VSS; Afebrile. Meds given as ordered, pills whole with water (see MAR). Voiced no complaints of pain at this time, sitting in bedside chair. Telemetry order verified and current, SR on monitor, no C/O chest pain/discomfort. PT up with 1 assist and a walker. Safety maintained at this time, call light and personal belongings in reach, bed locked and lowered. PT states no other needs at this time. Normal [facility] T3Free SerPl-mCncon 10-19-19 25 Free T3 [Mass/Vol] 2.6 pg/mL Normal 2.3-4.1 [facility] Comment on above: Order Comment: Speci men Type: BLOOD SPECIMENOrdering Facility: [facility] Address: [address] [place] [address] Performed By: #### 3 024-7, CRET1, 3050 ####[facility] [id number] [place] [address] [place] T4 Free SerPl-mCncon 025 Free T4 [Mass/Vol] 1.5 ng/dL Normal 0.9-1.7 [facility] Comment on above: Order Comment: Musai gerson Type: BLOOD SPECIMENOrdering Facility: [facility] Address: [address] [place] [address] Performed By: #### 3 024-7, CRET1, 0 ####[facility] [id number] [place] [address] [place] VITAMIN B1 (THIAMINE), WHOLE BLOODon 10-19-2024 Thiamine (Bld) [Moles/Vol] 179.7 nmol/L Normal 84.3-213.3 [facility] Comment on above: Order Comment: Musai men Type: BLOOD SPECIMENOrdering Facility: [facility] Address: [address] [place] [address] Result Comment: This assay measures the concentration of thiamine diphosphate (TDP), the primary active form of vitamin B1. Approximately 90 percent of vitamin B1 present in whole blood is TDP. Thiamine and thiamine monophosphate, which comprise the remaining 10 percent, are not measured. This test was developed, and its performance characteristics determined by the [facility] Department of Pathology and Laboratory Medicine. It has not been cleared or approved by the FDA. The [facility] Department of Pathology and Laboratory Medicine is regulated under CLIA as qualified to perform high-complexity testing. This test is used for clinical purposes. It should not be regarded as investigational or for research. Performed By: #### B 1WB ####[facility] LABCLIA [id number] [place] [address] [place] VITAMIN B6/PYRIDOXINon 10-19 VITAMIN B6 20.3 nmol/L Normal 20.0-125.0 [facility] Comment on above: Order Comment: Speci men Type: BLOOD SPECIMENOrdering Facility: [facility] Address: [address] [place] [address] Result Comment: INTE RPRETIVE INFORMATION: Vitamin B6 (Pyridoxal 5-Phosphate) Pyridoxal 5'-phosphate measured in a specimen collected following an 8-hour or overnight fast accurately indicates vitamin B6 nutritional status. Non-fasting specimen concentration reflects recent vitamin intake. This test was developed and its performance characteristics determined by [facility]. It has not been cleared or approved by the US Food and Drug Administration. This test was performed in a CLIA certified laboratory and is intended for clinical purposes. Performed By: [facility] [address] [place] [address] Roller Varnisher: Ash Worley MD, PhD CLIA Number: [id number] Performed By: #### V ITB6 ####[facility] [id number] [place] [address] Vit B12 SerPl-mCncon 025 Cobalamin (Vitamin B12) [Mass/Vol] 229 pg/mL Low 232-1245 [facility] Comment on above: Order Comment: Speci men Type: BLOOD SPECIMENOrdering Facility: [facility] Address: [address] [place] [address] Performed By: #### 2 284-8, 2132-9 ####[facility] LABORATORYCLIA [id number] [place] [address] [place] Ammonia Plas-sCncon 10-18-19 25 Ammonia (P) [Moles/Vol] 27 umol/L Normal 11-51 [facility] Comment on above: Order Comment: Speci men Type: BLOOD SPECIMENOrdering Facility: [facility] Address: [address] [place] [address] Performed By: #### 1 6362-6 ####[facility]IM[facility]Z LABORATORYIA [id number] [place] [id number] [facility] CONSULTon 10-18-2024 CONSULT HNO ID: [id number] Author: NED TERAN APRN.CNP Service: Gastroenterology Author Type: Nurse Practitioner Type: Consults Filed: 10/18/2024 14:07 Note Text: CONSULT: GASTROENTEROLOGY SERVICE SERVICE DATE: 10/18/2024 SERVICE TIME: 10:00 AM REASON FOR CONSULT: intermittent confusion, abdominal pain REQUESTING PHYSICIAN: Dr. Dorman PRIMARY CARE PHYSICIAN: Galindo Miller, LAUNDRY AIDE, LAUNDRY AIDE Subjective Ms. Sarabia is a 84 year old female with PMH afib(eliquis), HTN, DM-type II, and gastric/duodenal ulcers (09/2024) who presented to ED 10/16 for mental status change x 3 days, abdominal pain/distention. GI consulted for evaluation of intermittent confusion, abdominal pain. Patient initially presented to [facility] mid September 19 for altered mental status and abdominal pain. Work up including CT, HIDA, and EGD were done with no biopsies. Family reports patient mental status was improving at discharge from hospital, and almost to baseline until past Monday when pt mental status became drastically altered again. Patient is only alert x 1 for my exam and interview, but pleasant and undergoing BEM monitoring for seizure work up. Reports abdominal pain is more lower/central, no aggravating or alleviating factors. Admits to diarrhea but attributes to DM medication. Family reports weight loss of about 30# over past 1-2 months. Denies fever , chills, chest pain, sob, dysphagia, odynophagia, dyspepsia, melena, or hematochezia. On eliquis presently. Denies NSAIDs or OTC/supplements. No new medications except PPI for treatment of ulcers noted in September on EGD. Denies nicotine, etoh, or other illicit drug use. Denies family hx of GI issues or malignancy. Hx of recent EGD, no colon noted. Previous GI work up: 09/20/2024 EGD done for abd pain done at [facility] Mild LA grade A esophagitis Two small ulcers in the gastric body with overlying adherent clots. The ulcers were not bleeding Gastritis and two healing clean based ulcers in the gastric antrum Multiple ulcers in D2 and D3. Some were clean base and a few had overlying flat pigmented spots. *No biopsies collected 09/18/2024 NM LIVER/SPLEEN-HIDA There is brisk tracer uptake by the liver, Radioactive bile could be seen entering the bowel in the first 60 minutes. Impression/Recommendat ions Ms. Sarabia is a 84 year old female with PMH afib(eliquis), HTN, DM-type II, and gastric/duodenal ulcers (09/2024) who presented to ED 10/16 for mental status change x 3 days, abdominal pain/distention. GI consulted for evaluation of intermittent confusion, abdominal pain. #Altered mental status (POA: Yes) #Lower abdominal pain (POA: Yes) #Malnutrition of moderate degree (HCC) (POA: Yes) #Cellulitis of foot (POA: Yes) -On eliquis presently -afebrile, HDS; ABD EXAM: soft, endorses lower/mid abd pain, no grimacing or guarding with palpation, BS + -LABS: No leukocytosis, Hgb: 11.8, plt: 246; BUN/creat: 10/0.80; Albumin: 3.4, Tbili/AP/ALT/AST WNL; Urine (-), UDS (-) -CT ABD/PEL: 1. Bilateral nonobstructing renal calculi. 2. Suggestion of endometrial thickening measuring 15 mm. Recommend nonemergent pelvic ultrasound for further evaluation. 3. Cholelithiasis. 4. Diverticulosis. PLAN: -diet as tolerated for now -check ammonia level -Obtain RUQ US -Consideration of repeat EGD +/- Colonoscopy w/ duodenal biopsies PAS staining for requested work up of Whipples disease per Neuro, earliest would be 10/21 ; AC would need held starting 10/19, pt expressed did not want Colon, but family at bedside would encourage pt to cooperate for further testing if warranted for diagnosis - For Endoscopic Procedures: Monitor labs and keep K 3.5-5, INR < 1.5, PLT > 50, Hgb > 7. Type and screen updated. -Will follow along as needed -Case to be d/w staff: Dr. Karb for any other additional recs Addendum: 1400 d/w staff, agrees with above GI POC, will repeat EGD with biopsies on Saturday 10/21, please hold AC starting 10/19. Will update nursing and primary team. FUNCTIONAL STATUS: Partially dependent No past medical history on file. No past surgical history on file. No family history on file. pantoprazole DR (PROTONIX) 40 mg tablet, TAKE 1 TABLET BY MOUTH TWICE DAILY (IN THE MORNING and IN THE EVENING) BEFORE MEALS, Disp: , Rfl: metFORMIN (GLUCOPHAGE) 500 mg tablet, Take 1 tablet by mouth twice daily with meals., Disp: , Rfl: apixaban (ELIQUIS) 5 mg tab(s), Take 1 tablet by mouth twice daily., Disp: , Rfl: acetaminophen (TYLENOL) 325 mg tablet, 2 tablets by ORAL/FEEDING TUBE route every 4 hours as needed for pain or fever (specify)., Disp: , Rfl: dextrose (TRUEPLUS) 15 gram/32 mL oral gel, Take 32 mL by mouth as needed. (Patient not taking: Reported on 10/16/2024), Disp: , Rfl: docusate sodium (COLACE) 100 mg capsule, Take 1 capsule by mouth twice daily. (Patient not taking: Reported on 10/16/2024), Disp: , Rfl: lidoc (more content not included)... Normal [facility] NURSING PROGon 10-18-2024 NURSING PROG HNO ID: [id number] Author: CHER CALDERON RN Service: Nursing Author Type: Registered Nurse Type: Nursing Progress Note Filed: 10/18/2024 01:10 Note Text: Event(s) / Intervention Note: PATIENT NAME: Saeed Sarabia Patient Location: [place] [id number] Room: [place] [address] The patient was observed having the following problems: Patient restless and confused attempting to pull off EEG leads and trying to get out of bed stating I'm getting out of here , patent offered toileting and accepted, patient assisted to the restroom then assisted back to bed. Continued to try to get up and pulled at lines and was unable to redirect, PIECE GOODS CLERK notified and came to the bedside. The time of the event occurred at: 0020 The following intervention(s) were initiated: Placed new order for one time dose of IV haldol, patient compliant with administration. After the initiated interventions, the following observation(s) were made: nothing further noted. Will continue to observe and check with patient.. [facility] US ABD RIGHT UPPER QUADRANTo n 10-18-2024 US ABD RIGHT UPPER QUADRANT * * *Final Report* * * DATE OF EXAM: Oct 18 2024 4:44PM FVU 1032 - US ABD RIGHT UPPER QUADRANT / PROCEDURE REASON: Cholelithiasis * * * * Physician Interpretation * * * * EXAMINATION: RIGHT UPPER QUADRANT ULTRASOUND CLINICAL HISTORY: Right abdominal pain TECHNIQUE: Sonography of the right upper quadrant was performed. Images were obtained and stored in a permanent archive. MQ: URUQ_2 COMPARISON: Abdomen CT dated 10/16/2024 RESULT: Pancreas: Normal sonographic appearance. Portions obscured: tail Liver: Echotexture: Normal, homogeneous. Echogenicity: Normal Surface contour: Smooth Lesions: None. Biliary: No intrahepatic biliary duct dilation. CBD: 0.6 cm at the hilum. Gallbladder: Normal caliber -Contents: There are multiple calcified shadowing gallstones, unchanged. -Wall: Normal -Other: No pericholecystic fluid. Right Kidney: No hydronephrosis. Ascites: None. IMPRESSION: CHOLELITHIASIS. Fat Pressroom Worker: ROSS Transcribe Date/Time: Oct 18 2024 5:04P Dictated by : YAKELIN NICOLE MD This examination was interpreted and the report reviewed and electronically signed by: YAKELIN NICOLE MD on Oct 18 2024 5:06PM EST [id number] [facility] ALLIED HEALTHon 10-17-2024 ALLIED HEALTH HNO ID: [id number] Author: GALINDO FROST, clay artist Service: Radiology Author Type: Supervisor Cemetery Workers Type: Allied Health Filed: 10/17/2024 17:47 Note Text: Radiology Service Progress Note PATIENT NAME: Saeed Sarabia DATE OF SERVICE: October 17, 2024 TIME: 5:47 PM PATIENT IDENTITY VERIFICATION COMPLETED USING TWO (2) IDENTIFIERS: Name and Date of confirmed by patient verbally and Name and Date of confirmed by identification band. FALL SCREENING: Has the patient had 2 falls in the last year or 1 fall with injury or currently using an Ambulatory Assistive Device (Walker, Cane, Wheelchair, Crutches, etc.)? Inpatient: Screened on floor PATIENT GENDER DATA: Female. status: : No status: NO. PATIENT RELEVANT IMPLANT DATA REVIEWED: Yes PATIENT PRESENTS WITH AN IMPLANTABLE OR ATTACHED REVIEW RN: No RADIOLOGY DEPARTMENT: MR; Exam(s) Completed: Head: Routine Brain PERIPHERAL IV DATA: Not applicable SIGNED BY: Galindo Frost, clay artist October 17, 2024 5:47 PM Normal [facility] CBC panel Auto (Bld)on 10-17 Erythrocyte distribution width (RBC) [Ratio] 13.6 % Normal 11.5-15.0 [facility] Comment on above: Order Comment: Speci men Type: BLOOD SPECIMENOrdering Facility: [facility] Address: [address] [place] [address] Performed By: #### 5 8410-2 ####NIMITZ LABORATORYCLIA [id number] [place] [address] [place] Hematocrit (Bld) [Volume fraction] 35.9 % Low 36.0-46.0 [facility] Comment on above: Order Comment: Musai gerson Type: BLOOD SPECIMENOrdering Facility: [facility] Address: [address] [place] [address] Performed By: #### 5 8410-2 ####NIMITZ LABORATORYCLIA [id number] [place] [id number] [place] Hemoglobin (Bld) [Mass/Vol] 11.8 g/dL Normal 11.5-15.5 [facility] Comment on above: Order Comment: Speci men Type: BLOOD SPECIMENOrdering Facility: [facility] Address: [address] [place] [address] Performed By: #### 5 8410-2 ####NIMITZ LABORATORYCLIA [id number] [place] [address] [place] MCH (RBC) [Entitic mass] 30.9 pg Normal 26.0-34.0 [facility] Comment on above: Order Comment: Speci men Type: BLOOD SPECIMENOrdering Facility: [facility] Address: [address] [place] [address] Performed By: #### 5 8410-2 ####GRANT LABORATORYCLIA [id number] [address] [place] MCHC (RBC) [Mass/Vol] 32.9 g/dL Normal 30.5-36.0 [facility] Comment on above: Order Comment: Speci men Type: BLOOD SPECIMENOrdering Facility: [facility] Address: [address] [place] [address] Performed By: #### 5 8410-2 ####[facility] LABORATORYCLIA [id number] [address] [place] MCV (RBC) [Entitic vol] 94.0 fL Normal 80.0-100.0 [facility] Comment on above: Order Comment: Speci men Type: BLOOD SPECIMENOrdering Facility: [facility] Address: [address] [place] [address] Performed By: #### 5 8410-2 ####[facility] LABORATORYCLIA [id number] [place] [address] [place] Nucleated RBC (Bld) [#/Vol] 10*3/uL Normal <0.01 [facility] Comment on above: Order Comment: Speci men Type: BLOOD SPECIMENOrdering Facility: [facility] Address: [address] [place] [address] Performed By: #### 5 8410-2 ####GRANT LABORATORYCLIA [id number] [address] [place] Platelet mean volume (Bld) [Entitic vol] 9.6 fL Normal 9.0-12.7 [facility] Comment on above: Order Comment: Speci men Type: BLOOD SPECIMENOrdering Facility: [facility] Address: [address] [place] [address] Performed By: #### 5 8410-2 ####GRANT LABORATORYCLIA [id number] [place] [address] [facility] [place] Platelets (Bld) [#/Vol] 246 10*3/uL Normal 150-400 [facility] Comment on above: Order Comment: Speci men Type: BLOOD SPECIMENOrdering Facility: [facility] Address: [address] [place] [address] Performed By: #### 5 8410-2 ####NIMITZ LABORATORYCLIA [id number] [place] [address] [place] RBC (Bld) [#/Vol] 3.82 10*6/uL Low 3.90-5.20 [facility] Comment on above: Order Comment: Speci men Type: BLOOD SPECIMENOrdering Facility: [facility] Address: [address] [place] [address] Performed By: #### 5 8410-2 ####NIMITZ LABORATORYCLIA [id number] [place] [address] [place] WBC (Bld) [#/Vol] 5.44 10*3/uL Normal 3.70-11.00 [facility] Comment on above: Order Comment: Speci men Type: BLOOD SPECIMENOrdering Facility: [facility] Address: [address] [place] [address] Performed By: #### 5 8410-2 ####NIMITZ LABORATORYCLIA [id number] [place] [id number] [place] CNCOon 10-17-2024 CNCO Letter Text Normal [facility] CONSULTon 10-17-2024 CONSULT HNO ID: [id number] Author: TYLER MATA MD Service: Neurology General Author Type: Physician Type: Consults Filed: 10/17/2024 21:23 Note Text: INITIAL CONSULT - GENERAL NEUROLOGY SERVICE DATE: 10/17/2024 SERVICE TIME: 9:11 AM Team Requesting Consult: Medicine Current Attending Provider: Atul Martin DO Neurology was asked to evaluate Saeed Sarabia, a 84 year old female. Our recommendations of care will be communicated by shared medical record. Subjective HPI: Saeed Sarabia is a 84 year old female with p,hx of HTN, T2DM, cholecystitis presented to the ED with 3 days of AMS and abdominal pain. Of note, she had a recent admission at OSH 09/17 with abdominal pain and AMS found to have cholelithiasis (no acute cholecystitis and EGD with esophagitis and non-bleeding ulcers) unclear what was causing her abdominal pain. She was evaluated by neuro at that time with CTH and MRI brain reportedly unremarkable. Spouse said that she had significant improvement since then and was near her baseline until this past Monday. Prior to September, spouse said she had no cognitive issues and was independent with cooking, cleaning and ADL's. She has not driven in 2 years due to right foot drop, he also took over finances around that time but denies it being related to cognitive issues. Daughter reported that she has events of being unresponsive (starring off) lasting from minutes most of time and rarely to few hours. She would out of blue stop answering question. No associated seizure like activity or automatism. She has decline in her memory. Family noticed distention in her abdomen. She lost 20 lbs since last year Work-up so far notable for CT A/P with cholelithiasis and non-obstructing renal calculi. Labs largely unremarkable including CBC, CMP, Utox and UA. Current Facility-Administered Medications Medication Dose Route Frequency apixaban 5 mg tab(s) (ELIQUIS) 5 mg ORAL BID ezetimibe 10 mg tab(s) (ZETIA) 10 mg ORAL DAILY lisinopril 5 mg tab(s) (ZESTRIL) 5 mg ORAL DAILY metoprolol succinate ER 100 mg tab(s) (TOPROL XL) 100 mg ORAL DAILY rosuvastatin 5 mg tab(s) (CRESTOR) 5 mg ORAL DAILY spironolactone 12.5 mg tab(s) (ALDACTONE) 12.5 mg ORAL DAILY metFORMIN 500 mg tab(s) (GLUCOPHAGE) 500 mg ORAL BID w MEALS pantoprazole DR 40 mg tab(s) (PROTONIX) 40 mg ORAL BID AC (0600/1600) NaCl 0.9% iv flush bag 20 mL INTRAVENOUS PRN senna-docusate 8.6-50 mg 1 tablet (SENNA-S) 1 tablet ORAL BID PRN melatonin 6 mg tab(s) 6 mg ORAL AT BEDTIME PRN ondansetron (PF) 4 mg injection (ZOFRAN) 4 mg INTRAVENOUS q 6 H PRN acetaminophen 500-1,000 mg tab(s) (TYLENOL) 500-1,000 mg ORAL q 6 H PRN dextrose 40 % 15 g 15 g ORAL PRN Or glucagon 1 mg injection 1 mg INTRAMUSCULAR PRN Or dextrose 10% iv bolus 12.5 g INTRAVENOUS PRN insulin lispro injection (rapid acting) (ADMElog) SUBCUTANEOUS w MEALS AND HS lactated ringers iv infusion 100 mL/hr INTRAVENOUS CONTINUOUS No past medical history on file. No past surgical history on file. No family history on file. ALLERGIES Allergen Reactions Morphine GI Upset Objective General: appears comfortable in no acute distress HEENT: Normocephalic/atraumat ic, sclera non-icteric Lungs: unlabored respiratory effort on RA Abdomen: soft, non-tender, -distended Extremities: warm and well perfused, no significant ecchymosis or edema Skin: warm, dry; no lesions Neurological: Mental Status: Alert and oriented x2 (knows she is at but cannot identify hospital, knows the month but not the year). Poor insight. Struggles with complex commands. Language: normal fluency and radha, no dysarthria, able to follow commands and name, repetition intact I: Deferred examination II: Intact to finger counting in all 4 quadrants III/IV/: Extraocular movements intact throughout, no nystagmus V: Facial sensation intact and equal bilaterally VII: Facial movements symmetric; no facial droop or ptosis VIII: Hearing intact to voice and finger rub bilaterally IX, X: palate elevates symmetrically, gag not examined XI: Shoulder shrug and sternocleidomastoid strength full bilaterally XII: Tongue protrudes midline Motor: Inspection: Normal bulk, No atrophy, No fasciculations noted throughout. No involuntary movements including tremor at rest. Tone: Unremarkable throughout all four extremities. Muscle Right Left Shoulder Abduction 5/5 5/5 Elbow Flexion 5/5 5/5 Elbow Extension 5/5 5/5 Wrist flexion 5/5 5/5 Wrist extension 5/5 5/5 Finger flexion 5/5 5/5 Finger Extension 5/5 5/5 Finger abduction 5/5 5/5 Finger adduction 5/5 5/5 Abductor pollicis brevis 5/5 5/5 Hip Flexors 5/5 5/5 Hip Extensors 5/5 5/5 Knee Flexion 4/5 5/5 Knee Extension 4+/5 5/5 Foot Dorsiflexion 5/5 5/5 Foot Plantarflexion 0/5 5/5 Sensation: Light touch: intact Dorsal Column Vibration: intact Spinothalamic Pinprick: diminished in RLE only Reflexes: Upper (more content not included)... Normal [facility] Comprehensive metabolic 2000 panelon 10-17-2024 Albumin [Mass/Vol] 3.4 g/dL Low 3.9-4.9 [facility] Comment on above: Order Comment: Speci men Type: BLOOD SPECIMENOrdering Facility: [facility] Address: [address] [place] [id number] Performed By: #### 2 4323-8, 6-3, 26428-5, 23188-3 ####NIMITZ LABORATORYCLIA [id number] [place] [id number] [place] ALP [Catalytic activity/Vol] 46 U/L Normal 34-123 [facility] Comment on above: Order Comment: Speci men Type: BLOOD SPECIMENOrdering Facility: [facility] Address: [address] [place] [address] Performed By: #### 2 4323-8, 6-3, 05913-5, 42233-5 ####NIMITZ LABORATORYCLIA [id number] [place] [id number] [place] ALT [Catalytic activity/Vol] 17 U/L Normal 7-38 [facility] Comment on above: Order Comment: Speci men Type: BLOOD SPECIMENOrdering Facility: [facility] Address: [address] [place] [id number] Performed By: #### 2 4323-8, 6-3, 12659-5, 95590-1 ####NIMITZ LABORATORYCLIA [id number] [place] [address] [place] Anion gap [Moles/Vol] 10 mmol/L Normal 8-15 [facility] Comment on above: Order Comment: Speci men Type: BLOOD SPECIMENOrdering Facility: [facility] Address: [address] [place] [address] Performed By: #### 2 4323-8, 3016-3, 83186-4, 83749-1 ####NIMITZ LABORATORYCLIA [id number] [place] [address] [place] AST [Catalytic activity/Vol] 22 U/L Normal 13-35 [facility] Comment on above: Order Comment: Speci men Type: BLOOD SPECIMENOrdering Facility: [facility] Address: [address] [place] [address] Performed By: #### 2 4323-8, 6-3, , 96018-3 ####NIMITZ LABORATORYCLIA [id number] [place] [address] [place] Bilirubin [Mass/Vol] 0.3 mg/dL Normal 0.2-1.3 [facility] Comment on above: Order Comment: Speci men Type: BLOOD SPECIMENOrdering Facility: [facility] Address: [address] [place] [address] Performed By: #### 2 4323-8, 3015-3, , 81847-0 ####NIMITZ LABORATORYCLIA [id number] [place] [id number] [place] Calcium [Mass/Vol] 9.2 mg/dL Normal 8.5-10.2 [facility] Comment on above: Order Comment: Speci men Type: BLOOD SPECIMENOrdering Facility: [facility] Address: [address] [place] [address] Performed By: #### 2 4323-8, 6-3, , 58824-9 ####NIMITZ LABORATORYCLIA [id number] [place] [id number] [place] Chloride [Moles/Vol] 102 mmol/L Normal 98-107 [facility] Comment on above: Order Comment: Speci men Type: BLOOD SPECIMENOrdering Facility: [facility] Address: [address] [place] [address] Performed By: #### 2 4323-8, 6-3, 09852-5, 83008-6 ####NIMITZ LABORATORYCLIA [id number] [place] [address] [place] CO2 [Moles/Vol] 28 mmol/L Normal 22-30 [facility] Comment on above: Order Comment: Musai gerson Type: BLOOD SPECIMENOrdering Facility: [facility] Address: [address] [place] [address] Performed By: #### 2 4323-8, 3016-3, 52894-7, 37819-0 ####NIMITZ LABORATORYCLIA [id number] [place] [id number] [place] Creatinine [Mass/Vol] 0.80 mg/dL Normal 0.58-0.96 [facility] Comment on above: Order Comment: Musai men Type: BLOOD SPECIMENOrdering Facility: [facility] Address: [address] [place] [address] Performed By: #### 2 4323-8, 6-3, , 85338-9 ####NIMITZ LABORATORYCLIA [id number] [place] [address] [place] Creatinine and Glomerular filtration rate.predicted panel (S/P/Bld) 73 mL/min/1.73m??? Normal >=60 [facility] Comment on above: Order Comment: Akilah nieto Type: BLOOD SPECIMENOrdering Facility: [facility] Address: [address] [place] [address] Result Comment: Roz mated Glomerular Filtration Rate [...] reflect actual GFR. Performed By: #### 2 4323-8, 6-3, , 78819-3 ####NIMITZ LABORATORYCLIA [id number] [place] [id number] [place] Glucose [Mass/Vol] 103 mg/dL High 74-99 [facility] Comment on above: Order Comment: Speci men Type: BLOOD SPECIMENOrdering Facility: [facility] Address: [address] [place] [address] Result Comment: The [place] [employer] (ADA) provides guidance for cutoff [...] Standards of Medical Care in Diabetes 2016, [place] [employer]. Diabetes Care. 2016.39(Suppl 1). Performed By: #### 2 4323-8, 6-3, , 99465-3 ####GRANT LABORATORYCLIA [id number] [place] [address] [place] Potassium [Moles/Vol] 4.4 mmol/L Normal 3.7-5.1 [facility] Comment on above: Order Comment: Speci men Type: BLOOD SPECIMENOrdering Facility: [facility] Address: [address] [place] [address] Performed By: #### 2 4323-8, 6-3, , 63497-6 ####GRANT LABORATORYCLIA [id number] [place] [id number] [place] Protein [Mass/Vol] 5.8 g/dL Low 6.3-8.0 [facility] Comment on above: Order Comment: Speci men Type: BLOOD SPECIMENOrdering Facility: [facility] Address: [address] [place] [address] Performed By: #### 2 4323-8, 3, , 31384-9 ####[facility] LABORATORYCLIA [id number] [place] [id number] [place] Sodium [Moles/Vol] 140 mmol/L Normal 136-144 [facility] Comment on above: Order Comment: Speci men Type: BLOOD SPECIMENOrdering Facility: [facility] Address: [address] [place] [id number] Performed By: #### 2 4323-8, 3016-3, 08291-0, 22817-4 ####GRANT LABORATORYCLIA [id number] [place] [id number] [place] Urea nitrogen [Mass/Vol] 10 mg/dL Normal 7-21 [facility] Comment on above: Order Comment: Speci men Type: BLOOD SPECIMENOrdering Facility: [facility] Address: [address] [place] [address] Performed By: #### 2 4323-8, 6-3, 94725-5, 84737-5 ####GRANT LABORATORYCLIA [id number] [place] [id number] [place] Iron and Iron binding capaci ty panelon 10-17-2024 Iron [Mass/Vol] 74 ug/dL Normal 41-186 [facility] Comment on above: Order Comment: Speci men Type: BLOOD SPECIMENOrdering Facility: [facility] Address: [address] [place] [address] Performed By: #### 2 4323-8, 6-3, , 39505-3 ####GRANT LABORATORYCLIA [id number] [place] [id number] [place] Iron binding capacity [Mass/Vol] 235 ug/dL Normal 232-386 [facility] Comment on above: Order Comment: Speci men Type: BLOOD SPECIMENOrdering Facility: [facility] Address: [address] [place] [address] Performed By: #### 2 4323-8, 6-3, 65701-4, 58342-7 ####GRANT LABORATORYCLIA [id number] [place] [id number] [place] Iron/TIBC [Molar ratio] 31.5 % Normal 20.0-55.0 [facility] Comment on above: Order Comment: Speci men Type: BLOOD SPECIMENOrdering Facility: [facility] Address: [address] [place] [address] Performed By: #### 2 4323-8, 3016-3, 54922-2, 05123-2 ####NIMITZ LABORATORYCLIA [id number] [place] [address] [place] MRI BRAIN WO IVCONon 025 MRI BRAIN WO IVCON * * *Final Report* * * DATE OF EXAM: Oct 17 2024 5:58PM [facility] 0294 - MRI BRAIN WO IVCON / PROCEDURE REASON: Altered mental status, nontraumatic (Ped 0-18y) * * * * Physician Interpretation * * * * EXAMINATION: MRI BRAIN WO IVCON HISTORY: Altered mental status TECHNIQUE: Routine brain MRI protocol without contrast including diffusion images. MQ: MRBWO_2 COMPARISON: None. RESULT: Acute Change: No diffusion restriction to suggest acute infarct. Hemorrhage: Foci of probable chronic microhemorrhages in the subcortical left parietal lobe. Chronic hemosiderin associated with old RIGHT centrum semiovale/jernigan radiata lacunar infarcts. Mass Lesion / Mass Effect: No intracranial mass. No extra-axial collection. No midline shift. Chronic Change: Scattered patchy and confluent T2/FLAIR hyperintensities in the supratentorial white matter. Old lacunar infarcts in the RIGHT centrum semiovale and RIGHT jernigan radiata. Parenchyma: Mild parenchymal volume loss for age. Ventricles: Ventricular enlargement concordant with the degree of parenchymal volume loss. Skull Base: Grossly normal pituitary region. Normal craniocervical junction. No marrow replacing process. Vasculature: Major intracranial arterial structures and dural venous sinuses show typical flow void, suggesting patency by spin echo criteria. Other: Mucosal thickening in the ethmoid air cells. Clear mastoid air cells. Bilateral lens replacements. Unremarkable extracranial soft tissues. IMPRESSION: No acute intracranial process or mass. Chronic changes as described. Fat Pressroom Worker: PSCB Transcribe Date/Time: Oct 17 2024 6:11P Dictated by : ADINA AGEE MD This examination was interpreted and the report reviewed and electronically signed by: GEOFFREY ZAYAS MD on Oct 17 2024 6:44PM EST [id number] Normal [facility] Magnesium SerPl-mCncon 10-17 Magnesium [Mass/Vol] 2.0 mg/dL Normal 1.7-2.3 [facility] Comment on above: Order Comment: Speci men Type: BLOOD SPECIMENOrdering Facility: [facility] Address: [facility] [place] [address] Performed By: #### 2 4323-8, 3016-3, 04124-4, 10437-8 ####[facility] LABORATORYCLIA [id number] [place] [address] [place] NURSING PROGon 10-17-2024 NURSING PROG HNO ID: [id number] Author: RED COVINGTON, ELFEGO Service: Nursing Author Type: Registered Nurse Type: Nursing Progress Note Filed: 10/17/2024 09:00 Note Text: Nursing Progress Note: AANDO x 2, DO to time, pleasant and cooperative.VSS; Afebrile. Meds given as ordered, pills whole with water (see MAR). Voiced no complaints of pain at this time, resting quietly. Telemetry order verified and current, SR on monitor, no C/O chest pain/discomfort. PT up with 1 assist and a walker. Safety maintained at this time, call light and personal belongings in reach, bed locked and lowered. PT states no other needs at this time. Normal [facility] NUTRITIONon 10-17-2024 NUTRITION HNO ID: [id number] Author: PATIENCE COVINGTON RD Service: NST-Nutrition Support Team Author Type: Registered Dietitian Type: Nutrition Filed: 10/17/2024 12:43 Note Text: NUTRITION THERAPY INITIAL ASSESSMENT SERVICE DATE: 10/17/2024 SERVICE TIME: 1215 Nutrition Assessment: Recommended Malnutrition Diagnosis: Moderate Protein-Calorie Malnutrition In the context of: Acute Illness or Injury Based on: Subcutaneous Fat Loss, Muscle Loss, Insufficient Energy Intake Nutrition Diagnosis: Problem: Suboptimal oral intake Related to: Acute illness As evidenced by: Food/nutrition related history, Patient/family self-report, Weight loss, Imaging studies, Pain, Anorexia, Depletion of fat/muscle stores, Medical condition Care Plan: Continue current diet Supplements: Magic Cup, Mighty Shake No Sugar Added Medications: Sliding scale 1, Stool softener Monitor and Evaluation: Meet greater than 75% of estimated needs, Monitor fluid/electrolyte balance, Monitor bowel function, Monitor labs, I/Os, vital signs, weight HPI: 84 yo female presenting with AMS, abdominal pain. Imaging showing bilateral nonobstructing renal calculi, possible endometrial thickening, cholelithiasis, diverticulosis. Recent hospitalization for same symptoms - encephalopathy of unclear etiology. Improvement since previous admit with recurrence of symptoms. Intake History: Nutrition Intake Prior to Admission: Less than 50% estimated energy needs greater than or equal to 1 month Current Nutrition Intake: Less than 50% estimated energy needs Current Intake Over time: (1 day) Dosing Weight: 76.2 kg (167 lb 15.9 oz) Dosing Weight Type: Admit weight Estimated kilocalorie needs: 1520 - 1900 Calorie Calculation Method: 20-25 kcals/kg Estimated protein needs (grams): 91 - 115 Grams protein determined by: 1.2 - 1.5 g/kg Diet Orders (From admission, onward) Start Ordered 10/17/24914 DIET REGULAR START NOW 10/17/24 09 Anthropometrics: Height: 165.1 cm (5' 5 ) Weight: 76.2 kg (168 lb) Usual Weight: 81.6 kg (180 lb) October 2023 Usual Weight Obtained From: Family/Caregiver Body mass index is 27.96 kg/m?. Weight change percentage over time: -6.7% x 1 year Weight Change: Not clinically significant weight loss Physical Exam: Subcutaneous fat loss: Subcutaneous Fat Loss Assessed Orbital: Sightly dark circles, somewhat hollow look (Mild) Upper Arm (Triceps): Some depth to pinch, not ample fat (Mild) Muscle loss: Muscle Loss Assessed Temporalis: Slight depression (Mild) Clavicle: Well defined muscle (No loss) Acromion: Well defind muscle, rounded curve (No loss) Interosseous (Hand): Slight depression of muscle (Mild) Quadricep: Mild depression on inner thigh, kneecap more prominent (Mild) Gastrocnemius: Not well-developed muscle (Mild) Potential micronutrient deficiency: No deficiency identified Edema/Ascites: No edema GI Symptoms: Anorexia, Abdominal pain Stool Amount: WNL Functional Status: Regressed Potential Signs of Inflammation: Chronic condition, Hypoalbuminemia, Hyperglycemia, Imaging studies T2DM, HLD MNT Billing: $ Initial Assessment: 1-15 minutes SIGNATURE: Patience Covington RD PATIENT NAME: Saeed Sarabia DATE: October 17, 2024 TIME: 12:34 PM [facility] PORPHOBILINOGEN (PBG), URINE , SCREENon 10-17-2024 PORPHOBILINOGEN (PBG), URINE, SCREEN Negative Normal Negative [facility] Comment on above: Order Comment: Speci men Type: URINE SPECIMENOrdering Facility: [facility] Address: [address] [place] [address] Result Comment: This test was developed, and its performance characteristics determined by the [facility] Department of Pathology and Laboratory Medicine. It has not been cleared or approved by the FDA. The [facility] Department of Pathology and Laboratory Medicine is regulated under CLIA as qualified to perform high-complexity testing. This test is used for clinical purposes. It should not be regarded as investigational or for research. Performed By: #### U PBG ####[facility] LABCLIA [id number] [place] [address] [place] TOXICOLOGY SCREEN, ROUTINE U RINEon 10-17-2024 Amphetamines Confirm (U) [Mass/Vol] Negative Normal Negative [facility] Comment on above: Order Comment: Speci men Type: URINE SPECIMENOrdering Facility: [facility] Address: [address] [place] [address] Result Comment: Cuto ff threshold at 1000 ng/mL. Performed By: #### U TOX2 ####GRANT LABORATORYCLIA [id number] [place] [address] [place] BARBITURATES, URINE Negative Normal Negative [facility] Comment on above: Order Comment: Speci men Type: URINE SPECIMENOrdering Facility: [facility] Address: [address] [place] [address] Result Comment: Cuto ff threshold at 200 ng/mL. Performed By: #### U TOX2 ####[facility] LABORATORYCLIA [id number] [place] [address] [place] BENZODIAZEPINES, UR Negative Normal Negative [facility] Comment on above: Order Comment: Speci men Type: URINE SPECIMENOrdering Facility: [facility] Address: [address] [place] [address] Result Comment: Cuto ff threshold at 200 ng/mL. Performed By: #### U TOX2 ####[facility] LABORATORYCLIA [id number] [place] [address] [place] Cannabinoids Screen Ql (U) Negative Normal Negative [facility] Comment on above: Order Comment: Speci men Type: URINE SPECIMENOrdering Facility: [facility] Address: [address] [place] [address] Result Comment: Cuto ff threshold at 50 ng/mL. Performed By: #### U TOX2 ####DRE[facility] LABORATORYCLIA [id number] [place] [address] [place] Cocaine Ql (U) Negative Normal Negative [facility] Comment on above: Order Comment: Speci men Type: URINE SPECIMENOrdering Facility: [facility] Address: [address] [place] [address] Result Comment: Cuto ff threshold at 300 ng/mL. Performed By: #### U TOX2 ####[facility] LABORATORYCLIA [id number] [place] [address] [place] Ethanol (U) [Mass/Vol] <11 Normal <11 [facility] Comment on above: Order Comment: Speci men Type: URINE SPECIMENOrdering Facility: [facility] Address: [address] [place] [address] Performed By: #### U TOX2 ####[facility] LABORATORYCLIA [id number] [address] [place] Opiates Screen Ql (U) Negative Normal Negative [facility] Comment on above: Order Comment: Speci men Type: URINE SPECIMENOrdering Facility: [facility] Address: [address] [place] [address] Result Comment: Cuto ff threshold at 300 ng/mL. Performed By: #### U TOX2 ####[facility] LABORATORYCLIA [id number] [place] [address] [place] oxyCODONE cutoff Screen (U) [Mass/Vol] Negative Normal Negative [facility] Comment on above: Order Comment: Speci men Type: URINE SPECIMENOrdering Facility: [facility] Address: [address], [place] [address] Result Comment: Cuto ff threshold at 100 ng/mL. Performed By: #### U TOX2 ####NIMIT[facility] LABORATORYCLIA [id number] [place] [id number] [facility] Phencyclidine Ql (U) Negative Normal Negative [facility] Comment on above: Order Comment: Speci men Type: URINE SPECIMENOrdering Facility: [facility] Address: [address] [place] [address] Result Comment: Cuto ff threshold at 25 ng/mL. Performed By: #### U TOX2 ####NIMITZ LABORATORYCLIA [id number] [place] [id number] [place] TSH SerPl-aCncon 10-17-2024 TSH Qn 0.103 m[IU]/L Low 0.270-4.200 [facility] Comment on above: Order Comment: Speci men Type: BLOOD SPECIMENOrdering Facility: [facility] Address: [address] [place] [address] Performed By: #### 2 4323-8, 3016-3, 48979-9, 04229-5 ####NIMITZ LABORATORYCLIA [id number] [place] [id number] [place] ALLIED HEALTHon 10-16-2024 ALLIED HEALTH HNO ID: [id number] Author: WAYNE BRANHAM RDMS Service: Radiology Author Type: Client Support Professional Type: Allied Health Filed: 10/16/2024 16:40 Note Text: Radiology Service Progress Note PATIENT NAME: Saeed Sarabia DATE OF SERVICE: October 16, 2024 TIME: 4:39 PM PATIENT IDENTITY VERIFICATION COMPLETED USING TWO (2) IDENTIFIERS: Name and Date of confirmed by patient verbally and Name and Date of confirmed by identification band. FALL SCREENING: Has the patient had 2 falls in the last year or 1 fall with injury or currently using an Ambulatory Assistive Device (Walker, Cane, Wheelchair, Crutches, etc.)? Emergency Room Patient: Screened in ED PATIENT GENDER DATA: Female. status: : No status: N/A PATIENT RELEVANT IMPLANT DATA REVIEWED: Not Applicable PATIENT PRESENTS WITH AN IMPLANTABLE OR ATTACHED REVIEW RN: No RADIOLOGY DEPARTMENT: Ultrasound PERIPHERAL IV DATA: Not applicable SIGNED BY: Wayne Branham RDMS October 16, 2024 4:39 PM [facility] HNO ID: [id number] Author: DULCE BURTON CT Service: Radiology Author Type: Supervisor Cemetery Workers Type: Allied Health Filed: 10/16/2024 15:37 Note Text: Radiology Service Progress Note DATE OF SERVICE: October 16, 2024 TIME: 3:36 PM PATIENT IDENTITY VERIFICATION COMPLETED USING TWO (2) STANDARD IDENTIFIERS: Name and Date of confirmed by patient verbally. FALL SCREENING: Has the patient had 2 falls in the last year or 1 fall with injury or currently using an Ambulatory Assistive Device (Walker, Cane, Wheelchair, Crutches, etc.)? No PATIENT GENDER DATA: Female. status: : No status: NO. PATIENT RELEVANT IMPLANT DATA REVIEWED: Not Applicable PATIENT PRESENTS WITH AN IMPLANTABLE OR ATTACHED REVIEW RN: No ALLERGIES: Reviewed and unchanged CONTRAST ALLERGY: NO. EXAM: CT -CONTRAST INDUCED NEPHROPATHY RISK FACTORS: Patient age > 60 years CREATININE: Creatinine Date Value Ref Range Status 10/16/2024 0.83 0.58 - 0.96 mg/dL Final 04/04/2022 0.68 0.58 - 0.96 mg/dL Final 04/03/2022 0.80 0.58 - 0.96 mg/dL Final Estimated Glomerular Filtration Rate Date Value Ref Range Status 10/16/2024 70 >=60 mL/min/1.73m? Final Comment: Estimated Glomerular Filtration Rate (eGFR) is calculated using the 2020 CKD-EPI creatinine equation. This equation utilizes serum creatinine, sex, and age as parameters. The creatinine assay has traceable calibration to isotope dilution-mass spectrometry. Refer to KDIGO guidelines for clinical interpretation. In patients with unstable renal function, e.g. those with acute kidney injury, the eGFR may not accurately reflect actual GFR. P.O.C.T. RESULTS: POC done: Yes, See Lab Tab October 16, 2024 TREATMENT: N/A and No Hydration needed. PERIPHERAL IV DATA: Inpatient - refer to LDA documentation RADIOLOGY DEPARTMENT: CT; Exam(s) Completed: Abdomen/Pelvis SIGNATURE: GRACY Garcia PATIENT NAME: Saeed Sarabia DATE: October 16, 2024 TIME: 3:36 PM [facility] HNO ID: [id number] Author: COLBY DE JESUS RT(R) Service: Radiology Author Type: Technologist Type: Allied Health Filed: 10/16/2024 14:19 Note Text: Radiology Service Progress Note PATIENT NAME: Saeed Sarabia DATE OF SERVICE: October 16, 2024 TIME: 2:19 PM PATIENT IDENTITY VERIFICATION COMPLETED USING TWO (2) IDENTIFIERS: Name and Date of confirmed by patient verbally. FALL SCREENING: Has the patient had 2 falls in the last year or 1 fall with injury or currently using an Ambulatory Assistive Device (Walker, Cane, Wheelchair, Crutches, etc.)? Inpatient: Screened on floor PATIENT GENDER DATA: Female. status: : No status: NO. PATIENT RELEVANT IMPLANT DATA REVIEWED: Not Applicable PATIENT PRESENTS WITH AN IMPLANTABLE OR ATTACHED REVIEW RN: No RADIOLOGY DEPARTMENT: General X-ray: Exam(s) Completed: Chest X-Ray PERIPHERAL IV DATA: Not applicable SIGNED BY: RT Mariana(R) October 16, 2024 2:19 PM [facility] CBC W Auto Differential pane l (Bld)on 10-16-2024 Basophils (Bld) [#/Vol] 10*3/uL Normal <0.11 [facility] Comment on above: Order Comment: Speci men Type: BLOOD SPECIMENOrdering Facility: [facility] Address: [address] [place] [address] Performed By: #### 5 7021-8 ####NIMITZ LABORATORYCLIA [id number] [place] [address] [place] Basophils/100 WBC (Bld) 0.1 % Normal [facility] Comment on above: Order Comment: Speci men Type: BLOOD SPECIMENOrdering Facility: [facility] Address: [address] [place] [address] Performed By: #### 5 7021-8 ####NIMITZ LABORATORYCLIA [id number] [place] [address] [place] Differential cell count method Nom (Bld) Auto [facility] Comment on above: Order Comment: Speci men Type: BLOOD SPECIMENOrdering Facility: [facility] Address: [address] [place] [address] Performed By: #### 5 7021-8 ####GRANT LABORATORYCLIA [id number] [place] [id number] [place] Eosinophils (Bld) [#/Vol] 0.45 10*3/uL Normal <0.46 [facility] Comment on above: Order Comment: Speci men Type: BLOOD SPECIMENOrdering Facility: [facility] Address: [address] [place] [address] Performed By: #### 5 7021-8 ####[facility] LABORATORYCLIA [id number] [place] [address] [place] Eosinophils/100 WBC (Bld) 5.5 % Normal [facility] Comment on above: Order Comment: Speci men Type: BLOOD SPECIMENOrdering Facility: [facility] Address: [address] [place] [address] Performed By: #### 5 7021-8 ####GRANT LABORATORYCLIA [id number] [place] [address] [place] Erythrocyte distribution width (RBC) [Ratio] 13.6 % Normal 11.5-15.0 [facility] Comment on above: Order Comment: Speci men Type: BLOOD SPECIMENOrdering Facility: [facility] Address: [address] [place] [address] Performed By: #### 5 7021-8 ####GRANT LABORATORYCLIA [id number] [place] [address] [place] Hematocrit (Bld) [Volume fraction] 41.4 % Normal 36.0-46.0 [facility] Comment on above: Order Comment: Speci men Type: BLOOD SPECIMENOrdering Facility: [facility] Address: [address] [place] [address] Performed By: #### 5 7021-8 ####[facility] LABORATORYCLIA [id number] [place] [address] [place] Hemoglobin (Bld) [Mass/Vol] 13.4 g/dL Normal 11.5-15.5 [facility] Comment on above: Order Comment: Speci men Type: BLOOD SPECIMENOrdering Facility: [facility] Address: [address] [place] [address] Performed By: #### 5 7021-8 ####GRANT LABORATORYCLIA [id number] [place] [id number] [place] Immature granulocytes (Bld) [#/Vol] 0.03 10*3/uL Normal <0.10 [facility] Comment on above: Order Comment: Speci men Type: BLOOD SPECIMENOrdering Facility: [facility] Address: [address] [place] [address] Performed By: #### 5 7021-8 ####GRANT LABORATORYCLIA [id number] [place] [id number] [facility] [place] Immature granulocytes/100 WBC (Bld) 0.4 % Normal [facility] Comment on above: Order Comment: Speci men Type: BLOOD SPECIMENOrdering Facility: [facility] Address: [address] [place] [address] Performed By: #### 5 7021-8 ####GRANT LABORATORYCLIA [id number] [place] [address] [place] Lymphocytes (Bld) [#/Vol] 3.33 10*3/uL Normal 1.00-4.00 [facility] Comment on above: Order Comment: Speci men Type: BLOOD SPECIMENOrdering Facility: [facility] Address: [address] [place] [address] Performed By: #### 5 7021-8 ####GRANT LABORATORYCLIA [id number] [place] [id number] [place] Lymphocytes/100 WBC (Bld) 40.6 % Normal [facility] Comment on above: Order Comment: Speci men Type: BLOOD SPECIMENOrdering Facility: [facility] Address: [address] [place] [address] Performed By: #### 5 7021-8 ####[facility] LABORATORYCLIA [id number] [place] [id number] [place] MCH (RBC) [Entitic mass] 29.9 pg Normal 26.0-34.0 [facility] Comment on above: Order Comment: Speci men Type: BLOOD SPECIMENOrdering Facility: [facility] Address: [address] [place] [address] Performed By: #### 5 7021-8 ####GRANT LABORATORYCLIA [id number] [place] [address] [place] MCHC (RBC) [Mass/Vol] 32.4 g/dL Normal 30.5-36.0 [facility] Comment on above: Order Comment: Speci men Type: BLOOD SPECIMENOrdering Facility: [facility] Address: [address] [place] [address] Performed By: #### 5 7021-8 ####[facility] LABORATORYCLIA [id number] [address] [place] MCV (RBC) [Entitic vol] 92.4 fL Normal 80.0-100.0 [facility] Comment on above: Order Comment: Speci men Type: BLOOD SPECIMENOrdering Facility: [facility] Address: [address] [place] [address] Performed By: #### 5 7021-8 ####GRANT LABORATORYCLIA [id number] [place] [address] [place] Monocytes (Bld) [#/Vol] 0.50 10*3/uL Normal <0.87 [facility] Comment on above: Order Comment: Speci men Type: BLOOD SPECIMENOrdering Facility: [facility] Address: [address] [place] [address] Performed By: #### 5 7021-8 ####GRANT LABORATORYCLIA [id number] [address] [place] Monocytes/100 WBC (Bld) 6.1 % Normal [facility] Comment on above: Order Comment: Speci men Type: BLOOD SPECIMENOrdering Facility: [facility] Address: [address] [place] [address] Performed By: #### 5 7021-8 ####GRANT LABORATORYCLIA [id number] [place] [address] [place] Neutrophils (Bld) [#/Vol] 3.89 10*3/uL Normal 1.45-7.50 [facility] Comment on above: Order Comment: Speci men Type: BLOOD SPECIMENOrdering Facility: [facility] Address: [address] [place] [address] Performed By: #### 5 7021-8 ####GR[facility] LABORATORYCLIA [id number] [place] [address] [place] Neutrophils/100 WBC (Bld) 47.3 % Normal [facility] Comment on above: Order Comment: Speci men Type: BLOOD SPECIMENOrdering Facility: [facility] Address: [address] [place] [address] Performed By: #### 5 7021-8 ####[facility] LABORATORYCLIA [id number] [place] [address] [place] Nucleated RBC (Bld) [#/Vol] 10*3/uL Normal <0.01 [facility] Comment on above: Order Comment: Speci men Type: BLOOD SPECIMENOrdering Facility: [facility] Address: [address] [place] [address] Performed By: #### 5 7021-8 ####GR[facility] LABORATORYCLIA [id number] [place] [address] [place] Nucleated RBC/100 WBC (Bld) [Ratio] 0.0 /100 WBC Normal [facility] Comment on above: Order Comment: Speci men Type: BLOOD SPECIMENOrdering Facility: [facility] Address: [address] [place] [address] Performed By: #### 5 7021-8 ####[facility] LABORATORYCLIA [id number] [place] [id number] [place] Platelet mean volume (Bld) [Entitic vol] 9.9 fL Normal 9.0-12.7 [facility] Comment on above: Order Comment: Speci men Type: BLOOD SPECIMENOrdering Facility: [facility] Address: [address] [place] [address] Performed By: #### 5 7021-8 ####NIMIT[facility] LABORATORYCLIA [id number] [place] [id number] [facility] [place] Platelets (Bld) [#/Vol] 288 10*3/uL Normal 150-400 [facility] Comment on above: Order Comment: Speci men Type: BLOOD SPECIMENOrdering Facility: [facility] Address: [address] [place] [address] Performed By: #### 5 7021-8 ####NIM[facility] LABORATORYCLIA [id number] [place] [id number] [facility] [place] RBC (Bld) [#/Vol] 4.48 10*6/uL Normal 3.90-5.20 [facility] Comment on above: Order Comment: Speci men Type: BLOOD SPECIMENOrdering Facility: [facility] Address: [address] [place] [address] Performed By: #### 5 7021-8 ####NIM[facility] LABORATORYCLIA [id number] [place] [id number] [facility] [place] WBC (Bld) [#/Vol] 8.21 10*3/uL Normal 3.70-11.00 [facility] Comment on above: Order Comment: Speci men Type: BLOOD SPECIMENOrdering Facility: [facility] Address: [address] [place] [address] Performed By: #### 5 7021-8 ####N[facility] LABORATORYCLIA [id number] [place] [id number] [facility] CNOVon 10-16-2024 CNOV Office Visit (EXPNOL ) SAEED SARABIA ([id number]) 1940 F Date Time Provider Department 10/16/24 11:55 AM BRIANA SCHWARZ EXPNOL During your visit today, we recorded the following information about you: Temperature Pulse Respiration Blood pressure 99.3 degrees 76/minute 18/minute 156/61 Briana Schwarz PA-C 10/16/2024 12:57 PM Signed [facility] October 16, 2024 Saeed Sarabia 1940 Patient presents with: Abdominal Pain: X6 wks on and off, change in mental status x3 days Was recently treated for uti getting better then abd pain and admitted to [place] and then transferred to [place] and admitted for a week with gall stone. Was doing well until about 2-3 days ago and became confused and still lower abd pain. No nausea vomiting diarrhea. 10/16/24 1222 BP: 156/61 Pulse: 76 Resp: 18 Temp: 37.4 ?C (99.3 ?F) TempSrc: Temporal SpO2: 98% The patient was seen today for abd pain and confusion. The patient was advised that her complaints and condition require a higher level of care and she was subsequently referred to ER due to the limitations of [facility] testing capabilities. The patient verbalized understanding and denies questions. Patient transported to Emergency Department by who refused transport Abd exam with lower abd pain no guarding no masses no rebound. The patient refused transfer to ER by ambulance. The patient was accompanied by and states that they feel safe to self transport. Advised of possible risks. Report called Briana Schwarz PA-C [facility] Referring Provider: SELF [200] Allergies As of Date: 10/16/2024 Noted Allergy Reaction MORPHINE 09/17/2024 8 - GI Upset Date Reviewed: 10/16/2024 Reviewed by: Brianna Rasmussen DO - Fully Assessed Reason for Visit: Abdominal Pain [1] Cmt: X6 wks on and off, change in mental status x3 days Primary Visit Diagnosis:Confusion [R41.0] Other Visit Diagnosis:Abdominal pain, unspecified abdominal location [R10.9] Prescriptions as of 10/16/2024 - pantoprazole DR (PROTONIX) 40 mg tablet TAKE 1 TABLET BY MOUTH TWICE DAILY (IN THE MORNING and IN THE EVENING) BEFORE MEALS - metFORMIN (GLUCOPHAGE) 500 mg tablet Take [...] once daily. Problem List As Of Date 10/16/2024 Noted Resolved Spinal stenosis [M48.00] 03/28/2022 Right leg weakness [R29.898] 03/29/2022 HLD (hyperlipidemia) [E78.5] 03/29/2022 Foot drop, right foot [M21.371] 03/29/2022 Atrial fibrillation (HCC) [I48.91] 03/29/2022 Benign essential HTN [I10] 03/29/2022 DM type 2 (diabetes mellitus, type 2) (HCC) [E1*03/29/2022 Constipation [K59.00] 04/02/2022 Encounter Status:Closed by BRIANA SCHWARZ on 10/16/24 Normal [facility] CT ABD/PEL W IVCONon 025 CT ABD/PEL W IVCON * * *Final Report* * * DATE OF EXAM: Oct 16 2024 3:43PM [facility] 0530 - CT ABD/PEL W IVCON / PROCEDURE REASON: Abdominal pain, acute, nonlocalized * * * * Physician Interpretation * * * * EXAMINATION: CT ABDOMEN AND PELVIS WITH IV CONTRAST CLINICAL HISTORY: Pain TECHNIQUE: CT of the abdomen and pelvis was performed using standard technique, scanning from just above the dome of the diaphragm to the symphysis pubis. MQ: CTAP_3 Contrast: IV: 100 ml of Omnipaque 350 : ml of CT Radiation dose: Integrated Dose-length product (DLP) for this visit = 621 mGy*cm. CT Dose Reduction Employed: Automated exposure control (AEC) COMPARISON: None. RESULT: Liver: No mass. Biliary: No bile duct dilation. Cholelithiasis. Spleen: No mass. No splenomegaly. Pancreas: No mass or duct dilation. Adrenals: No mass. Kidneys: Bilateral nonobstructing renal calculi. 2 mm left lower pole calculus. There are approximately 1 3 stones in the right kidney with the largest in the lower pole measuring 4 mm. No hydronephrosis. GI tract: No dilation or wall thickening. Normal appendix. Diverticulosis. Lymph nodes: No abdominal or pelvic lymphadenopathy. Mesentery/Peritoneum: No ascites or mass. Retroperitoneum: No mass. Vasculature: - Abdominal aorta and iliac arteries: Atherosclerotic calcifications without aneurysm. - Celiac and SMA: Atherosclerotic calcifications at the origins. - Portal venous system (SMV, splenic vein, portal vein and branches): Patent. - Hepatic veins: Incompletely opacified, likely due to early phase of enhancement. Pelvis: Suggestion of endometrial thickening measuring 15 mm. Bones/Soft Tissues: Degenerative changes. Lower thorax: Coronary artery and mitral annular calcification and. Localizer images: No additional findings. IMPRESSION: 1. Bilateral nonobstructing renal calculi. 2. Suggestion of endometrial thickening measuring 15 mm. Recommend nonemergent pelvic ultrasound for further evaluation. 3. Cholelithiasis. 4. Diverticulosis. ACTIONABLE RESULT: FOLLOW-UP Acuity: Actionable Findings: Female reproductive tract (pelvis, adnexa) Routing code: WH_1 Recommendation: US FEMALE PELVIS NON-OB NON TORSION ([id number]) Time Frame: At the discretion of the clinical team. COMMUNICATION: Results will be communicated with the ordering provider via [employer] staff message or phone message by [employer] within 2 business days of report finalization. --END OF FINDING-- Fat Pressroom Worker: ROSS Transcribe Date/Time: Oct 16 2024 3:53P Dictated by : YUKI FRAGOSO MD This examination was interpreted and the report reviewed and electronically signed by: YUKI FRAGOSO MD on Oct 16 2024 4:13PM EST [id number] ACTIONABLE Invalid Interpretation Code [facility] Comprehensive metabolic 2000 panelon 10-16-2024 Albumin [Mass/Vol] 4.1 g/dL Normal 3.9-4.9 [facility] Comment on above: Order Comment: Speci men Type: BLOOD SPECIMENOrdering Facility: [facility] Address: [address] [place] [address] Performed By: #### 2 8, ####NIMITZ LABORATORYCLIA [id number] [place] [address] [place] ALP [Catalytic activity/Vol] 56 U/L Normal 34-123 [facility] Comment on above: Order Comment: Speci men Type: BLOOD SPECIMENOrdering Facility: [facility] Address: [address] [place] [address] Performed By: #### 2 4323-05, ####NIMITZ LABORATORYCLIA [id number] [place] [id number] [place] ALT [Catalytic activity/Vol] 17 U/L Normal 7-38 [facility] Comment on above: Order Comment: Speci men Type: BLOOD SPECIMENOrdering Facility: [facility] Address: [address] [place] [address] Performed By: #### 2 8, ####NIMITZ LABORATORYCLIA [id number] [place] [id number] [place] Anion gap [Moles/Vol] 22 mmol/L High 8-15 [facility] Comment on above: Order Comment: Speci men Type: BLOOD SPECIMENOrdering Facility: [facility] Address: [address] [place] [address] Performed By: #### 2 4323-05, ####GRANT LABORATORYCLIA [id number] [place] [id number] [place] AST [Catalytic activity/Vol] 24 U/L Normal 13-35 [facility] Comment on above: Order Comment: Speci men Type: BLOOD SPECIMENOrdering Facility: [facility] Address: [address] [place] [address] Performed By: #### 2 3-8, ####GRANT LABORATORYCLIA [id number] [place] [id number] [place] Bilirubin [Mass/Vol] 0.4 mg/dL Normal 0.2-1.3 [facility] Comment on above: Order Comment: Speci men Type: BLOOD SPECIMENOrdering Facility: [facility] Address: [address] [place] [address] Performed By: #### 2 4322-8, ####GRANT LABORATORYCLIA [id number] [place] [address] [place] Calcium [Mass/Vol] 9.7 mg/dL Normal 8.5-10.2 [facility] Comment on above: Order Comment: Speci men Type: BLOOD SPECIMENOrdering Facility: [facility] Address: [address] [place] [address] Performed By: #### 2 4322-8, ####GRANT LABORATORYCLIA [id number] [place] [id number] [place] Chloride [Moles/Vol] 96 mmol/L Low 98-107 [facility] Comment on above: Order Comment: Speci men Type: BLOOD SPECIMENOrdering Facility: [facility] Address: [address] [place] [address] Performed By: #### 2 4323-8, ####GRANT LABORATORYCLIA [id number] [place] [id number] [place] CO2 [Moles/Vol] 19 mmol/L Low 22-30 [facility] Comment on above: Order Comment: Speci men Type: BLOOD SPECIMENOrdering Facility: [facility] Address: [address] [place], [place] [address] [id number] Performed By: #### 2 4323-8, ####NIMITZ LABORATORYCLIA [id number] [place] [id number] [place] Creatinine [Mass/Vol] 0.83 mg/dL Normal 0.58-0.96 [facility] Comment on above: Order Comment: Speci men Type: BLOOD SPECIMENOrdering Facility: [facility] Address: [address] [place] [address] Performed By: #### 2 4323-8, ####NIMITZ LABORATORYCLIA [id number] [place] [id number] [place] Creatinine and Glomerular filtration rate.predicted panel (S/P/Bld) 70 mL/min/1.73m??? Normal >=60 [facility] Comment on above: Order Comment: Speci gerson Type: BLOOD SPECIMENOrdering Facility: [facility] Address: [address] [place] [address] Result Comment: Roz mated Glomerular Filtration Rate [...] reflect actual GFR. Performed By: #### 2 4323-8, ####[facility] LABORATORYCLIA [id number] [place] [id number] [place] Glucose [Mass/Vol] 127 mg/dL High 74-99 [facility] Comment on above: Order Comment: Speci men Type: BLOOD SPECIMENOrdering Facility: [facility] Address: [address] [place] [address] Result Comment: The [place] Diabetes Association (ADA) provides guidance for cutoff [...] Standards of Medical Care in Diabetes 2016, [place] [employer] Association. Diabetes Care. 2016.39(Suppl 1). Performed By: #### 2 4323-8, ####GRANT LABORATORYCLIA [id number] [place] [id number] [place] Potassium [Moles/Vol] 4.4 mmol/L Normal 3.7-5.1 [facility] Comment on above: Order Comment: Akilah nieto Type: BLOOD SPECIMENOrdering Facility: [facility] Address: [address] [place] [address] Performed By: #### 2 4328, ####GRANT LABORATORYCLIA [id number] [place] [id number] [place] Protein [Mass/Vol] 7.3 g/dL Normal 6.3-8.0 [facility] Comment on above: Order Comment: Speci men Type: BLOOD SPECIMENOrdering Facility: [facility] Address: [address] [place] [address] Performed By: #### 2 4323-8, ####GRANT LABORATORYCLIA [id number] [place] [id number] [place] Sodium [Moles/Vol] 137 mmol/L Normal 136-144 [facility] Comment on above: Order Comment: Speci men Type: BLOOD SPECIMENOrdering Facility: [facility] Address: [address] [place] [address] Performed By: #### 2 4323-, ####[facility] LABORATORYCLIA [id number] [place] [id number] [place] Urea nitrogen [Mass/Vol] 12 mg/dL Normal 7-21 [facility] Comment on above: Order Comment: Speci men Type: BLOOD SPECIMENOrdering Facility: [facility] Address: [address] [place] [address] Performed By: #### 2 4323-8, 05707-2 ####GRANT LABORATORYIA [id number] [place] [id number] [place] ECG COMPLETEon 10-16-2024 ECG COMPLETE Ventricular Rate : 7 6 BPM Atrial Rate : 77 BPM P-R Interval : 113 ms QRS Duration : 146 ms Q-T Interval : 413 ms QTC Calculation(Bazett) : 465 ms Calculated P Bertrand : 97 degrees Calculated R Bertrand : -42 degrees Calculated T Bertrand : 100 degrees Sinus rhythm Atrial premature complex Borderline short [place] interval Left bundle branch block Abnormal ECG No Stemi Confirmed by JASON SAGASTUME MD ([id number]) on 10/16/2024 4:13:30 PM NAME : SAEED SARABIA PID : [id number] : 1940 Gender : Female Race : ORD : [id number] Procedure Date : Oct 16 2024 13:36:17 Edit Date : Oct 16 2024 16:13:35 Diagnosis: Sinus rhythm Atrial premature complex Borderline short [place] interval Left bundle branch block Abnormal ECG No Stemi Confirmed by JASON SAGASTUME MD ([id number]) on 10/16/2024 4:13:30 PM Test Reason : Chest Pain Location : 402 : FVED [id number] Overread By : JASON SAGASTUME MD Edited By : JASON SAGASTUME MD Referred By : , Acquired by : [id number], [facility] ED NOTEon 10-16-2024 ED NOTE HNO ID: [id number] Author: TRUMAN SUBRAMANIAN RN Service: ? Author Type: Registered Nurse Type: ED Notes Filed: 10/16/2024 13:29 Note Text: Bed: 08-ED Expected date: 10/16/24 Expected time: 12:55 PM Means of arrival: [facility]/EMS Comments: 84F confusion x 3 days per spouse From AANDox2 169/96, 88, 96%, BGL 135 +IV prenotification [facility] ED PROV NOTEon 10-16-2024 ED PROV NOTE HNO ID: [id number] Author: EVER KEENE DO Service: ? Author Type: Physician Type: ED Provider Notes Filed: 10/16/2024 17:34 Note Text: ED CONTINUATION OF CARE NOTE Code Status: Prior Assumed care from: Dr. Sagastume Presentation / Findings / Interventions / Plan / Items to Follow Up: CT scan of the abdomen pelvis as well as DVT ultrasound and reevaluation. Clinical Impressions as of 10/16/24 1733 Altered mental status, unspecified altered mental status type Lower abdominal pain Decreased appetite Nephrolithiasis Biliary calculus of other site without obstruction Endometrial hyperplasia Medical Decision Making Patient remained hemodynamically stable and afebrile. No focal findings on my exam. She did receive a CT scan of her abdomen pelvis which did show nephrolithiasis as well as cholelithiasis with no significant new acute findings other than endometrial thickening. Family and patient informed of these findings. They do not feel comfortable with home discharge at this time given patient's current altered mentation. I did review her [facility] note which did show that she had an MRI scan of her head which did show chronic microvascular changes with nothing acute. Patient will be admitted to the CDU for further management of her altered mentation. 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 Abdominal Pain: Distention noted problems with abdominal pain and pressure for some time. Sent By Md: [facility] pt to ED for further eval HPI Patient is an 84-year-old female who presents with altered mental status. Brought in by family. Increasing confusion over the past few days. Patient was recently hospitalized in [place] for abdominal pain, confusion. Encephalopathy of unclear etiology, improved prior to discharge. She had initial findings concerning for cholecystitis however had a HIDA scan inpatient that was negative. Family states that she was improved upon discharge but symptoms have recurred and worsened. She is also complaining of increased lower abdominal pain/distention. Decreased p.o. intake over the past 24 hours. No past medical history on file. No past surgical history on file. No family history on file. Social History Tobacco Use Smoking status: Not on file Smokeless tobacco: Not on file Substance and Sexual Activity Alcohol use: Not on file Drug use: Not on file Sexual activity: Not on file ALLERGIES Allergen Reactions Morphine GI Upset Review of Systems Constitutional: Positive for appetite change. Negative for chills and fever. HENT: Negative for trouble swallowing. Eyes: Negative for visual disturbance. Respiratory: Negative for cough and shortness of breath. Cardiovascular: Negative for chest pain and leg swelling. Gastrointestinal: Positive for abdominal pain. Negative for diarrhea, nausea and vomiting. Genitourinary: Negative for difficulty urinating. Musculoskeletal: Negative for back pain and neck pain. Skin: Negative for rash and wound. Neurological: Negative for dizziness, syncope, light-headedness and headaches. Psychiatric/Behavioral : Positive for confusion. Negative for behavioral problems. Physical Exam Vitals [10/16/24 1333] BP Pulse Temp Temp src Resp SpO2 Weight Height 98/80 84 36.6 ?C (97.8 ?F) Oral 18 95 % 76.2 kg (168 lb) 1.651 m (5' 5 ) Physical Exam Vitals and nursing note reviewed. Constitutional: Appearance: She is well-developed. She is not toxic-appearing. HENT: Head: Normocephalic and atraumatic. Right Ear: External ear normal. Left Ear: External ear normal. Nose: Nose normal. No rhinorrhea. Mouth/Throat: Mouth: Mucous membranes are moist. Eyes: General: No scleral icterus. Extraocular Movements: Extraocular movements intact. Conjunctiva/sclera: Conjunctivae normal. Pupils: Pupils are equal, round, and reactive to light. Cardiovascular: Rate and Rhythm: Normal rate and regular rhythm. Pulses: Normal pulses. Heart sounds: Normal heart sounds. Pulmonary: Effort: Pulmonary effort is normal. No respiratory distress. Breath sounds: No wheezing. Abdominal: General: There is no distension. Palpations: Abdomen is soft. Tenderness: There is no abdominal tenderness. Musculoskeletal: General: No swelling, tenderness or deformity. Normal range of motion. Cervical back: Normal range of motion and neck supple. Skin: General: Skin is warm and dry. Capillary Refill: Capillary refill takes less than 2 seconds. Neurological: Mental Status: She is alert. She is disoriented. GCS: GCS eye subscore is 4. GCS verbal subscore is 4. GCS motor subscore is 6. Motor: No weakness. Psychiatric: Behavior: Behavior normal. Diagnostic Testing ED Labs Ordered and Reviewed COVID AND INFLUENZA A/B AND RSV PCR, EXPEDITED - Normal Narrative: Reference Range (the expected result in uninfected individuals): Not detected COMPLETE BLOOD COUNT AND DIFFERENTIAL COMPREHENSIVE METABOLIC PANEL MAGNESIUM URINALYSIS (WITH MICROSCOPIC) WITH CULTURE IF INDICATED Procedures ED Course / Clinical Impression Clinical Impressions as of 10/16/24 1525 Altered mental status, unspecified altered mental status type Lower abdominal pain Decreased appetite MDM / Disposition / Plan Patient is an 84-year-old female who presents via EMS from urgent care for altered mental status. Brought in by . Patient was admitted to [place] in September for similar presentation, no source for her confusion was identified and she improved while in the ED. Patient's states that she was doing better however symptoms recurred. Seems more confused and usual, poor appetite. She is endorsing lower abdominal pain. Normal urine and stool output. On exam she is awake and alert. abdomen is soft, nontender with no rebound or guarding. Clear speech. She is confused however no focal findings. Family is at bedside. At this time [facility]more content not included)... Normal [facility] ED PROV NOTE HNO ID: [id number] Author: BRIANNA RASMUSSEN DO Service: Emergency Medicine Author Type: Physician Type: ED Provider Notes Filed: 10/16/2024 12:53 Note Text: ED E-CONSULT PROVIDER TO PROVIDER NOTE SERVICE DATE: 10/16/2024 [email or web address] SERVICE TIME: 12:49 PM REQUESTING PROVIDER: Briana Schwarz PA-C REQUESTING LOCATION: [facility] CONSULTING SERVICE: Emergency Services I am being asked to provide an opinion on management for Saeed who is a 84 year old female. ASSESSMENT Recent treatment for UTI end of August Admitted to OSH in September Increased confusion x 3 days, disoriented No N/V + lower abd pain From chart review from OSH admission: Hospital course: 83yoF who was admitted from [place] to [facility] on 09/17 for concern for cholecystitis. Patient was seen at [place] ED for abdominal pain and AMS. CT head was unremarkable but CT Abd showed signs concerning for cholecystitis with the presence of cholelithiasis. She was transferred to [facility] with General Surgery evaluation. HIDA was negative for acute cholecystitis, so no surgical intervention was pursued. LFTs were wnl. As the patient continued to exhibit abdominal pain and N/V, GI was consulted as well. EGD was performed that showed esophagitis and non-bleeding gastric ulcers. She was provided with PPI and instructed to follow up outpatient for repeat EGD in several weeks. H pylori testing pending at time of discharge. The patient was encephalopathic as well without clear cause. UA and metabolic testing was unremarkable. MRI was unremarkable as well beyond chronic ischemic changes. Regardless, she was treated with 3 days Bactrim and showed improvement to her mentation. Neurology was consulted who recommended no further diagnostics as the patient returned to baseline prior to discharge. RECOMMENDATIONS Send to ED - [facility] This plan was discussed with requesting provider. I spent 11 minutes reviewing records, addressing clinical questions/concerns, and transmitting my assessment and recommendations (by direct communication if indicated) to the requesting team. The patient or patient's education courses sales representative consented to e-consultation. SIGNATURE: Brianna Rasmussen DO PATIENT NAME: Saeed Sarabia DATE: October 16, 2024 TIME: 12:49 PM I have communicated my name and active licensure. The patient's identity and physical location were verified at the time of this visit. Either the patient or their legal education courses sales representative has been informed of the risks and benefits of -- and alternatives to -- treatment through a remote evaluation and consents to proceed with the evaluation remotely. BRIANNA RASMUSSEN 10/16/24 1253 [facility] HISTORY PHYSICALon HISTORY PHYSICAL HNO ID: [id number] Author: SUSAN SPRAGUE PA-C Service: General Internal Medicine Author Type: Physician Supervisor Fur Floor Worker Type: H&P Filed: 10/17/2024 05:17 Note Text: Department of Internal Medicine HISTORY AND PHYSICAL EXAMINATION SERVICE DATE: 10/16/2024 SERVICE TIME: 8:20 PM PRIMARY CARE PHYSICIAN: Galindo Miller, LAUNDRY AIDE, LAUNDRY AIDE CONTACT COVERAGE: See Treatment Team and contact assigned BLAYNE. If no BLAYNE assigned: -5N/5W/5PAV/6th floor/2S or ED Hold, naheed YEVGENIY House Team A: [phone] -[facility], naheed YEVGENIY House Team B: [phone] Subjective CHIEF COMPLAINT: Altered Mental Status HPI: 84 y/o with a PMHx of paroxysmal Afib, hypertension and diabetes presents with complaints of mental status changes over the last 3 days. She has also had decreased po intake recently, stating that she has lost 15 lbs in the last few weeks, although admission from 1 month ago reveals that she has gained about 5 lbs in this time. She was admitted to [facility] on 09/17 for concern for cholecystitis where she had abdominal pain and similar AMS to today. CT head and subsequent MRI was unremarkable beyond chronic ischemic changes. Pt returned to baseline prior to discharge and neurology signed off. Pt is complaining of similar abdominal pain today as one month ago. She denies fever, chills, nausea, vomiting, constipation, diarrhea, chest pain, cough, shortness of breath and urinary symptoms. Lab results are largely unremarkable. UA is negative for UTI. CT of ABD/PEL reveals bilateral non obstructing renal calculi, cholelithiasis, diverticulosis and endometrial thickening of 15 mm. Negative DVT study. CXR shows patchy bibasilar atelectasis/infiltrate . Code status discussion is not medically appropriate at this time due to patient's AMS, FULL CODE by default. Recommend code status discussion while pt demonstrates lucidity. No past medical history on file. No past surgical history on file. No family history on file. pantoprazole DR (PROTONIX) 40 mg tablet, TAKE 1 TABLET BY MOUTH TWICE DAILY (IN THE MORNING and IN THE EVENING) BEFORE MEALS, Disp: , Rfl: metFORMIN (GLUCOPHAGE) 500 mg tablet, Take 1 tablet by mouth twice daily with meals., Disp: , Rfl: apixaban (ELIQUIS) 5 mg tab(s), Take 1 tablet by mouth twice daily., Disp: , Rfl: acetaminophen (TYLENOL) 325 mg tablet, 2 tablets by ORAL/FEEDING TUBE route every 4 hours as needed for pain or fever (specify)., Disp: , Rfl: dextrose (TRUEPLUS) 15 gram/32 mL oral gel, Take 32 mL by mouth as needed. (Patient not taking: Reported on 10/16/2024), Disp: , Rfl: docusate sodium (COLACE) 100 mg capsule, Take 1 capsule by mouth twice daily. (Patient not taking: Reported on 10/16/2024), Disp: , Rfl: lidocaine (SALONPAS) 4 % patch, Apply 2 Patches as directed once daily. (Patient not taking: Reported on 10/16/2024), Disp: , Rfl: methocarbamol (ROBAXIN) 750 mg tablet, Take 1 tablet by mouth three times daily as needed. (Patient not taking: Reported on 10/16/2024), Disp: , Rfl: bumetanide (BUMEX) 1 mg tablet, Take 0.5-1 mg by mouth once daily as needed (edema). (Patient not taking: Reported on 10/16/2024), Disp: , Rfl: gabapentin (NEURONTIN) 100 mg capsule, Take 100 mg by mouth three times daily. (Patient not taking: Reported on 10/16/2024), Disp: , Rfl: ezetimibe (ZETIA) 10 mg tablet, Take 10 mg by mouth once daily., Disp: , Rfl: lisinopril (ZESTRIL, PRINIVIL) 5 mg tablet, Take 5 mg by mouth once daily., Disp: , Rfl: metoprolol succinate ER (TOPROL XL) 100 mg, Take 100 mg by mouth once daily., Disp: , Rfl: rosuvastatin (CRESTOR) 5 mg tablet, Take 5 mg by mouth once daily., Disp: , Rfl: glipiZIDE (GLUCOTROL) 5 mg tablet, Take 5 mg by mouth twice daily before meals., Disp: , Rfl: spironolactone (ALDACTONE) 25 mg tablet, Take 12.5 mg by mouth once daily., Disp: , Rfl: ALLERGIES Allergen Reactions Morphine GI Upset COMPLETE REVIEW OF SYSTEMS: Review of Systems Constitutional: Positive for appetite change. Negative for chills and fever. Respiratory: Negative for cough and shortness of breath. Cardiovascular: Negative for chest pain. Gastrointestinal: Positive for abdominal pain. Negative for constipation, diarrhea, nausea and vomiting. Genitourinary: Negative for difficulty urinating, dysuria and frequency. Psychiatric/Behavioral : Positive for confusion. Objective PHYSICAL EXAM: Physical Exam Constitutional: General: She is not in acute distress. Appearance: Normal appearance. HENT: Head: Normocephalic and atraumatic. Mouth/Throat: Mouth: Mucous membranes are moist. Eyes: Extraocular Movements: Extraocular movements intact. Pupils: Pupils are equal, round, and reactive to light. Cardiovascular: Rate and Rhythm: Normal rate and regular rhythm. Heart sounds: No murmur heard. Pulmonary: Effort: Pulmonary effort is normal. No respiratory distress. Breath sounds: Normal breath sounds. No wheezing. Abdominal: Palpations: Abdomen is (more content not included)... Normal [facility] Magnesium SerPl-mCncon 10-16 Magnesium [Mass/Vol] 1.6 mg/dL Low 1.7-2.3 [facility] Comment on above: Order Comment: Speci men Type: BLOOD SPECIMENOrdering Facility: [facility] Address: [address] [place] [address] Performed By: #### 2 4323-8, 00631-2 ####NIM[facility] LABORATORYCLIA [id number] [place] [address] [place] US DVT LOWER RTon 10-16-2024 US DVT LOWER RT * * *Final Report* * * DATE OF EXAM: Oct 16 2024 4:47PM U 1007 - US DVT LOWER RT / PROCEDURE REASON: Leg swelling * * * * Physician Interpretation * * * * EXAMINATION: RIGHT LOWER EXTREMITY DEEP VENOUS ULTRASOUND WITH DOPPLER IMAGING CLINICAL HISTORY: TECHNIQUE: Grayscale with compression maneuvers, color Doppler and spectral Doppler imaging of the right proximal deep veins was performed. Grayscale with compression maneuvers of the peroneal and posterior tibial veins was performed. The right great and small saphenous veins were evaluated at their insertion to the deep system. The contralateral common femoral vein was imaged for comparison. Images were obtained and stored in a permanent archive. MQ: USLER_1 COMPARISON: None RESULT: RIGHT LOWER EXTREMITY PROXIMAL DEEP VEINS Distal External Iliac, Common Femoral and proximal Profunda Veins: Compression: Normal Doppler: Normal, spontaneous respirophasic flow. Normal response to augmentation. Femoral vein: Compression: Normal Doppler: Normal, spontaneous flow. Normal response to augmentation. Popliteal vein: Compression: Normal Doppler: Normal, spontaneous flow. Normal response to augmentation. CALF DEEP VEINS Peroneal veins: Normal compression. Posterior tibial veins: Normal compression. Gastrocnemius and Soleal veins: Not imaged. SUPERFICIAL VEINS Great saphenous: Patent and compressible at insertion into common femoral vein; not otherwise assessed. Small Saphenous: Patent and compressible in the proximal calf, not otherwise assessed. LEFT LOWER EXTREMITY (FOR COMPARISON) Common Femoral Vein: Compression: Normal Doppler: Normal, spontaneous respirophasic flow. Normal response to augmentation. IMPRESSION: Negative study for proximal DVT in the right lower extremity. Negative study for calf DVT in the right lower extremity. Negative study for superficial thrombophlebitis in the imaged segments of the right lower extremity. Fat Pressroom Worker: PSCB Transcribe Date/Time: Oct 16 2024 4:56P Dictated by : CLARY HUERTAS MD This examination was interpreted and the report reviewed and electronically signed by: CLARY HUERTAS MD on Oct 16 2024 5:07PM EST [id number] Normal [facility] Urinalysis complete panel (U )on 10-16-2024 Bilirubin Ql (U) Negative Normal Negative [facility] Comment on above: Order Comment: Speci men Type: URINE SPECIMENOrdering Facility: [facility] Address: [address] [place] [address] Performed By: #### 2 4356-8 ####NIMITZ LABORATORYCLIA [id number] [place] [address] [place] Clarity (Unsp spec) Clear Normal Clear [facility] Comment on above: Order Comment: Speci men Type: URINE SPECIMENOrdering Facility: [facility] Address: [address] [place] [address] Performed By: #### 2 4356-8 ####NIMITZ LABORATORYCLIA [id number] [place] [address] [place] Color (U) Light Yellow Normal Yellow [facility] Comment on above: Order Comment: Speci men Type: URINE SPECIMENOrdering Facility: [facility] Address: [address] [place] [address] Performed By: #### 2 4356-8 ####NIMITZ LABORATORYCLIA [id number] [address] Epithelial cells LM.HPF (Urine sed) [#/Area] Few Normal [facility] Comment on above: Order Comment: Speci men Type: URINE SPECIMENOrdering Facility: [facility] Address: [address] [place] [address] Performed By: #### 2 4356-8 ####[facility] LABORATORYCLIA [id number] [address] [place] [facility] Glucose Test strip (U) [Mass/Vol] Negative Normal Trace, Negative [facility] Comment on above: Order Comment: Speci men Type: URINE SPECIMENOrdering Facility: [facility] Address: [address] [place] [address] Performed By: #### 2 4356-8 ####[facility] LABORATORYCLIA [id number] [address] [place] [facility] Hemoglobin Ql (U) Negative Normal Negative, Trace [facility] Comment on above: Order Comment: Speci men Type: URINE SPECIMENOrdering Facility: [facility] Address: [address] [place] [address] Performed By: #### 2 4356-8 ####[facility] LABORATORYCLIA [id number] [address] [place] Hyaline casts (Urine sed) [#/Area] 1-3 /LPF Abnormal 0 /LPF [facility] Comment on above: Order Comment: Speci men Type: URINE SPECIMENOrdering Facility: [facility] Address: [address] [place] [address] Performed By: #### 2 4356-8 ####[facility] LABORATORYCLIA [id number] [address] [place] [facility] Ketones Ql (U) Negative Normal Negative, Trace [facility] Comment on above: Order Comment: Speci men Type: URINE SPECIMENOrdering Facility: [facility] Address: [address] [place] [address] Performed By: #### 2 4356-8 ####[facility] LABORATORYCLIA [id number] [address] Leukocyte esterase Test strip Ql (U) Negative Normal Negative, 25 Oh/uL [facility] Comment on above: Order Comment: Speci men Type: URINE SPECIMENOrdering Facility: [facility] Address: [address] [place] [address] Performed By: #### 2 4356-8 ####[facility] LABORATORYCLIA [id number] [place] [address] [place] Nitrite Ql (U) Negative Normal Negative [facility] Comment on above: Order Comment: Speci men Type: URINE SPECIMENOrdering Facility: [facility] Address: [address] [place] [address] Performed By: #### 2 4356-8 ####[facility] LABORATORYCLIA [id number] [place] [address] [place] pH (U) 6.0 [pH] Normal 5.0-8.0 [facility] Comment on above: Order Comment: Speci men Type: URINE SPECIMENOrdering Facility: [facility] Address: [address] [place] [address] Performed By: #### 2 4356-8 ####[facility] LABORATORYCLIA [id number] [place] [address] [place] Protein (U) [Mass/Vol] Negative Normal Trace , Negative [facility] Comment on above: Order Comment: Speci men Type: URINE SPECIMENOrdering Facility: [facility] Address: [address] [place] [address] Performed By: #### 2 4356-8 ####[facility] LABORATORYCLIA [id number] [place] [address] [place] RBC LM.HPF (Urine sed) [#/Area] 0-3 /HPF Normal 0-3 /HPF [facility] Comment on above: Order Comment: Speci men Type: URINE SPECIMENOrdering Facility: [facility] Address: [address] [place] [address] Performed By: #### 2 4356-8 ####[facility] LABORATORYCLIA [id number] [place] [address] [place] Specific gravity (U) [Rel density] 1.010 Normal 1.005-1.030 [facility] Comment on above: Order Comment: Speci men Type: URINE SPECIMENOrdering Facility: [facility] Address: [address] [place] [address] Performed By: #### 2 4356-8 ####NIMIT[facility] LABORATORYCLIA [id number] [place] [address] [place] Urobilinogen Ql (U) Normal Normal Normal [facility] Comment on above: Order Comment: Speci men Type: URINE SPECIMENOrdering Facility: [facility] Address: [address] [place] [address] Performed By: #### 2 4356-8 ####NIMITZ LABORATORYIA [id number] [place] [address] [place] WBC LM.HPF (Urine sed) [#/Area] 0-5 /HPF Normal 0-5 /HPF [facility] Comment on above: Order Comment: Speci men Type: URINE SPECIMENOrdering Facility: [facility] Address: [address] [place] [address] Performed By: #### 2 4356-8 ####NIMITZ LABORATORYCLIA [id number] [place] [address] [place] XR CHEST 1V FRONTAL PORTon 0 10-16-2024 XR CHEST 1V FRONTAL PORT * * *Final Repo rt* * * DATE OF EXAM: Oct 16 2024 2:20PM FVX 5376 - XR CHEST 1V FRONTAL PORT / PROCEDURE REASON: Mental status change * * * * Physician Interpretation * * * * EXAMINATION: CHEST RADIOGRAPH (PORTABLE SINGLE VIEW AP) Exam Date/Time: 10/16/2024 2:20 PM CLINICAL HISTORY: Mental status change MQ: XCPR_5 Comparison: Chest x-ray dated 03/28/2022 RESULT: Lines, tubes, and devices: None. Lungs and pleura: There is patchy bibasilar atelectasis/infiltrate , new since 03/28/2022. Cardiomediastinal silhouette: Stable cardiomediastinal silhouette. Other: No bony abnormalities. IMPRESSION: PATCHY BIBASILAR ATELECTASIS/INFILTRATE , NEW SINCE 03/28/2022 Fat Pressroom Worker: ROSS Transcribe Date/Time: Oct 16 2024 3:06P Dictated by : YAKELIN NICOLE MD This examination was interpreted and the report reviewed and electronically signed by: YAKELIN NICOLE MD on Oct 16 2024 3:06PM EST [id number] [facility] 30on 09-21-2024 30 The patient is Moderately Stable - Low risk of patient condition declining or worsening The patient's goals for the shift include comfort/rest The clinical goals for the shift include VSS/Comfort Problem: Pain - Adult Goal: Verbalizes/displays adequate comfort level or baseline comfort level Outcome: Progressing Problem: Safety - Adult Goal: Free from fall injury Outcome: Progressing Problem: Discharge Planning Goal: Discharge to home or other facility with appropriate resources Outcome: Progressing Problem: Chronic Conditions and Co-morbidities Goal: Patient's chronic conditions and co-morbidity symptoms are monitored and maintained or improved Outcome: Progressing Normal [facility] 30 Daily Case Managemen t Update Multidisciplinary rounds have been completed. Barriers to Discharge: Patient is medically ready for hospital discharge at this time. Follow up GI appointment and procedure requests sent, and AVS has been completed. Patients primary RN notified of patients discharge readiness. PT/OT have recommended SNF placement at time of discharge, however, patient continues to deny placement. Patient will discharge to home. No further OTM needs identified at this time. [facility] will continue to follow patient and assist with any further discharge related needs. Diet: Dietary Orders (From admission, onward) Start Ordered 09/20/24 0945 Regular Diet Heart Healthy/HTN, CABG,Stroke, (2gNA, low fat, low cholesterol); Diabetic Female (carb 45g/meal) Diet effective now Question Answer Comment Room Service? Yes Fat restriction: Heart Healthy/HTN, CABG,Stroke, (2gNA, low fat, low cholesterol) Carbohydrate restriction: Diabetic Female (carb 45g/meal) 09/20/24 0945 Physician Expected Discharge Date: 09/21/2024 Discharge Delays: PT Six Click Score: 16 OT Six Click Score: 17 PT Recommendations: Outpatient PT (with focus on balance) OT Recommendations: retirement facility placement Does patient understand post acute plan of care? Yes Is expected discharge disposition appropriate for patient?: Yes New Consults: Consult Orders (From admission, onward) Start Ordered 09/17/242218 Inpatient consult to General Surgery Once Specialty: General Surgery Provider: (Not yet assigned) Question Answer Comment Consulting Group GENERAL SURGERY TEAM Reason for Consult? Cholelithiasis with with cholecystitis Level of Consultation Consultation and Management 09/17/24221709/17/242130 Inpatient consult to Hospitalist Once Specialty: Internal Medicine Provider: (Not yet assigned) Question Answer Comment Consulting Group HOSPITALIST (ADMIT/FLOAT) Reason for Consult? confusion, cholecystitis Level of Consultation Consultation and Management 09/17/242130 Ancillary Consults (From admission, onward) Start Ordered 09/19/24811 Inpatient consult to Social Work Once Provider: (Not yet assigned) Question Answer Comment Is discharge planning needed? If yes, who is requesting discharge planning? Other (Comment) Care Coordination Select all services needed for the patient Other Other: PT ordered et pt refused. OT recs Home w 24 vs C vs SNF. Please follow for discharge planning. 09/19/2481109/17/242213 Inpatient Consult to Social Work Once Provider: (Not yet assigned) Question Answer Comment Select all services needed for the patient Other Other: Facilitate discharge plans 09/17/242216 Therapy Orders (From admission, onward) Start Ordered 09/17/242213 PT eval and treat Until therapy completed Question: Reason for PT? Answer: Evaluate and treat 09/17/24221609/17/242213 OT eval and treat Until therapy completed Question: Reason for OT? Answer: Evaluate and treat 09/17/242216 Normal [facility] CBC WITH AUTO DIFFERENTIALon 09-21-2024 Basophils (Bld) [#/Vol] 0.03 10*3/uL Normal 0.00-0.20 [facility] Comment on above: Performed By: #### L AB54 #### [facility] RESPIRATORY THERAPY [address] [place] [address] [facility] Basophils/100 WBC (Bld) 0.4 % Normal 0.0-1.0 [facility] Comment on above: Performed By: #### L AB54 #### [facility] RESPIRATORY THERAPY [address] [place] [address] [place] Eosinophils (Bld) [#/Vol] 0.18 10*3/uL Normal 0.00-0.50 [facility] Comment on above: Performed By: #### L AB54 #### [facility] RESPIRATORY THERAPY [address] Eosinophils/100 WBC (Bld) 2.3 % Normal 0.0-6.0 [facility] Comment on above: Performed By: #### L AB54 #### [facility] RESPIRATORY THERAPY [address] Erythrocyte distribution width (RBC) [Ratio] 13.2 % Normal 11.5-15.0 [facility] Comment on above: Performed By: #### L AB54 #### [facility] RESPIRATORY THERAPY [address] ERYTHROCYTE MEAN CORPUSCULAR HEMOGLOBIN CONCENTRATION (G/DL) BY AUTOMATED 31.7 g/dL Low 32.0-35.0 [facility] Comment on above: Performed By: #### L AB54 #### [facility] RESPIRATORY THERAPY [address] Hematocrit (Bld) [Volume fraction] 38.8 % Normal 36.0-48.0 [facility] Comment on above: Performed By: #### L AB54 #### [facility] RESPIRATORY THERAPY [address] [place], [place] [address] Hemoglobin (Bld) [Mass/Vol] 12.3 g/dL Normal 12.0-15.0 [facility] Comment on above: Performed By: #### L AB54 #### [facility] RESPIRATORY THERAPY [address] [place], [place] [address] Immature granulocytes (Bld) [#/Vol] 0.03 10*3/uL Normal 0.00-0.20 [facility] Comment on above: Performed By: #### L AB54 #### [facility] RESPIRATORY THERAPY [address] [place], [place] [address] Immature granulocytes/100 WBC (Bld) 0.4 % Normal 0.0-1.0 [facility] Comment on above: Performed By: #### L AB54 #### [facility] RESPIRATORY THERAPY [address] [place] [address] [facility] Lymphocytes (Bld) [#/Vol] 2.57 10*3/uL Normal 1.20-4.00 [facility] Comment on above: Performed By: #### L AB54 #### [facility] RESPIRATORY THERAPY [address] [place] [address] [facility] Lymphocytes/100 WBC (Bld) 33.2 % Normal 20.0-45.0 [facility] Comment on above: Performed By: #### L AB54 #### [facility] RESPIRATORY THERAPY [address] [place] [address] [facility] MCH (RBC) [Entitic mass] 29.9 pg Normal 27.0-33.0 [facility] Comment on above: Performed By: #### L AB54 #### [facility] RESPIRATORY THERAPY [address] [place] [address] [facility] MCV (RBC) [Entitic vol] 94.2 fL Normal 82.0-98.0 [facility] Comment on above: Performed By: #### L AB54 #### [facility] RESPIRATORY THERAPY [address] [place] [address] [facility] Monocytes (Bld) [#/Vol] 0.74 10*3/uL Normal 0.10-1.00 [facility] Comment on above: Performed By: #### L AB54 #### [facility] RESPIRATORY THERAPY [address] [place] [address] [place] Monocytes/100 WBC (Bld) 9.6 % Normal 5.0-12.0 [facility] Comment on above: Performed By: #### L AB54 #### [facility] RESPIRATORY THERAPY [address] [place] [address] [place] Neutrophils (Bld) [#/Vol] 4.21 10*3/uL Normal 1.60-7.60 [facility] Comment on above: Performed By: #### L AB54 #### [facility] RESPIRATORY THERAPY [address] [place] [address] [place] Neutrophils/100 WBC (Bld) 54.5 % Normal 40.0-72.0 [facility] Comment on above: Performed By: #### L AB54 #### [facility] RESPIRATORY THERAPY [address] [place] [address] [place] NRBC (PER 100 WBCS) BY AUTOMATED COUNT 0.0 % Normal 0 [facility] Comment on above: Performed By: #### L AB54 #### [facility] RESPIRATORY THERAPY [address] [place] [address] [place] PLATELETS (10*3/UL) IN BLOOD AUTOMATED COUNT 289 10*3/uL Normal 150-400 [facility] Comment on above: Performed By: #### L AB54 #### [facility] RESPIRATORY THERAPY [address] [place] [address] [facility] RBC (Bld) [#/Vol] 4.12 10*6/uL Normal 3.80-5.00 [facility] Comment on above: Performed By: #### L AB54 #### [facility] RESPIRATORY THERAPY [address] [place] [address] [facility] WBC (Bld) [#/Vol] 7.73 10*3/uL Normal 4.00-10.60 [facility] Comment on above: Performed By: #### L AB54 #### [facility] RESPIRATORY THERAPY [address] [place] [address] [facility] COMPREHENSIVE METABOLIC PANE Sadiq 09-21-2024 Albumin [Mass/Vol] 3.5 g/dL Normal 3.5-5.7 [facility] Comment on above: Performed By: #### L AB17 ####[facility]OSP[facility] LAB (BEAKER)[address] [facility] [address] ALP [Catalytic activity/Vol] 45 U/L Normal 34-104 [facility] Comment on above: Performed By: #### L AB17 ####[facility] (BEAKER)[address] [place] [address] ALT [Catalytic activity/Vol] 25 U/L Normal 7-52 [facility] Comment on above: Performed By: #### L AB17 ####[facility] ([facility])[address] [place] [address] Anion gap [Moles/Vol] 12 mmol/L Normal 7-20 [facility] Comment on above: Performed By: #### L AB17 ####[facility] ([facility]AKER)[address] [place] [address] AST [Catalytic activity/Vol] 31 U/L Normal 13-39 [facility] Comment on above: Performed By: #### L AB17 ####[facility] (BEAKER)[address] [place] [address] Bilirubin [Mass/Vol] 0.5 mg/dL Normal 0.3-1.0 [facility] Comment on above: Performed By: #### L AB17 ####[facility] ([facility]ER)[address] [place] [address] Calcium [Mass/Vol] 8.7 mg/dL Normal 8.6-10.3 [facility] Comment on above: Performed By: #### L AB17 ####[facility] (BEAKER)[address] [place] [address] Chloride [Moles/Vol] 104 mmol/L Normal 98-107 [facility] Comment on above: Performed By: #### L AB17 ####[facility] ([facility]AKER)[address] [place] [address] CO2 [Moles/Vol] 26 mmol/L Normal 21-31 [facility] Comment on above: Performed By: #### L AB17 ####[facility] ([facility]AKER)[address] [place] [address] Creatinine [Mass/Vol] 1.00 mg/dL Normal 0.60-1.20 [facility] Comment on above: Performed By: #### L AB17 ####[facility] ([facility]AKER)[address] [place] [address] GLOMERULAR FILTRATION RATE ML/MIN/1.73 SQ M.PREDICTED 55.9 mL/min/1.73m*2 Low >60.0 [facility] Comment on above: Result Comment: The [facility]???s estimated glomerular filtration rate (eGFR) will no longer include consideration of race in its calculation. The [employer]???s eGFR Task Force developed new recommendations for the estimation of the glomerular filtration rate in the [place] They recommend immediate implementation of the new equation refit without the race variable in all laboratories because the calculation does not include race. In addition to not including race in the calculation and reporting, it included diversity in its development, and has acceptable performance characteristics and potential consequences that do not disproportionately affect any one group of individuals. Performed By: #### L [id number] ####[facility] ([facility])[address] [place] [address] Glucose [Mass/Vol] 131 mg/dL High 70-100 [facility] Comment on above: Performed By: #### L [id number] ####[facility] ([facility])[address] [place] [address] Potassium [Moles/Vol] 4.4 mmol/L Normal 3.5-5.1 [facility] Comment on above: Performed By: #### L [id number] ####[facility] ([facility])[address] [place] [address] Protein [Mass/Vol] 5.9 g/dL Low 6.0-8.3 [facility] Comment on above: Performed By: #### L [id number] ####[facility] ([facility])[address] [place] [address] Sodium [Moles/Vol] 138 mmol/L Normal 136-145 [facility] Comment on above: Performed By: #### L [id number] ####[facility] ([facility])[address] [place] [address] Urea nitrogen [Mass/Vol] 15 mg/dL Normal 7-25 [facility] Comment on above: Performed By: #### L [id number] ####[facility] ([facility])[address] [place] [address] UREA NITROGEN/CREATININE (MASS RATIO) IN SER/PLAS 15.0 Normal [facility] Comment on above: Performed By: #### L [id number] ####[facility] ([facility])[address] [place] [address] POCT GLUCOSE METER UNSOLICIT ED RESULTSon 09-21-2024 Glucose [Mass/Vol] 182 mg/dL High 70-105 [facility] Comment on above: Order Comment: Waive d Testing in the ED is performed under the ED CLIA certificate #[id number]. Result Comment: srab ee Performed By: #### L [id number] ####[facility] ([facility])[address] [place] [address] Glucose [Mass/Vol] 114 mg/dL High 70-105 [facility] Comment on above: Order Comment: Waive d Testing in the ED is performed under the ED CLIA certificate #[id number]. Result Comment: srab ee Performed By: #### L [id number] #### [facility] ([facility]) [address] [place] [address] 30on 09-20-2024 30 The patient is Moderately Stable - Low risk of patient condition declining or worsening The patient's goals for the shift include comfort/rest The clinical goals for the shift include VSS/Comfort Problem: Pain - Adult Goal: Verbalizes/displays adequate comfort level or baseline comfort level Outcome: Progressing Problem: Safety - Adult Goal: Free from fall injury Outcome: Progressing Problem: Discharge Planning Goal: Discharge to home or other facility with appropriate resources Outcome: Progressing Problem: Skin/Tissue Integrity - Adult Goal: Skin integrity remains intact Outcome: Progressing Normal [facility] CBC WITH AUTO DIFFERENTIALon 09-20-2024 Basophils (Bld) [#/Vol] 0.03 10*3/uL Normal 0.00-0.20 [facility] Comment on above: Performed By: #### L [id number] ####[facility] ([facility])[address] [place] [address] Basophils/100 WBC (Bld) 0.4 % Normal 0.0-1.0 [facility] Comment on above: Performed By: #### L [id number] ####[facility] ([facility])[address] [place] [address] Eosinophils (Bld) [#/Vol] 0.12 10*3/uL Normal 0.00-0.50 [facility] Comment on above: Performed By: #### L [id number] ####[facility] ([facility])[address] [place] [address] Eosinophils/100 WBC (Bld) 1.6 % Normal 0.0-6.0 [facility] Comment on above: Performed By: #### L [id number] ####[facility] ([facility])[address] [place] [address] Erythrocyte distribution width (RBC) [Ratio] 13.4 % Normal 11.5-15.0 [facility] Comment on above: Performed By: #### L [id number] ####[facility] ([facility])[address] [place] [address] ERYTHROCYTE MEAN CORPUSCULAR HEMOGLOBIN CONCENTRATION (G/DL) BY AUTOMATED 32.0 g/dL Normal 32.0-35.0 [facility] Comment on above: Performed By: #### L [id number] ####[facility] ([facility])[address] [place] [address] Hematocrit (Bld) [Volume fraction] 39.7 % Normal 36.0-48.0 [facility] Comment on above: Performed By: #### L [id number] ####[facility] ([facility])[address] [place] [address] Hemoglobin (Bld) [Mass/Vol] 12.7 g/dL Normal 12.0-15.0 [facility] Comment on above: Performed By: #### L [id number] ####[facility] ([facility])[address] [place] [address] Immature granulocytes (Bld) [#/Vol] 0.04 10*3/uL Normal 0.00-0.20 [facility] Comment on above: Performed By: #### L [id number] ####[facility] ([facility])[address] [place] [address] Immature granulocytes/100 WBC (Bld) 0.5 % Normal 0.0-1.0 [facility] Comment on above: Performed By: #### L [id number] ####[facility] ([facility])[address] [place] [address] Lymphocytes (Bld) [#/Vol] 1.74 10*3/uL Normal 1.20-4.00 [facility] Comment on above: Performed By: #### L [id number] ####[facility] ([facility])[address] [place] [address] Lymphocytes/100 WBC (Bld) 22.6 % Normal 20.0-45.0 [facility] Comment on above: Performed By: #### L [id number] ####[facility] ([facility])[address] [place] [address] MCH (RBC) [Entitic mass] 30.0 pg Normal 27.0-33.0 [facility] Comment on above: Performed By: #### L [id number] ####[facility] ([facility])[address] [place] [address] MCV (RBC) [Entitic vol] 93.6 fL Normal 82.0-98.0 [facility] Comment on above: Performed By: #### L [id number] ####[facility] ([facility])[address] [place] [address] Monocytes (Bld) [#/Vol] 0.73 10*3/uL Normal 0.10-1.00 [facility] Comment on above: Performed By: #### L [id number] ####[facility] ([facility])[address] [place] [address] Monocytes/100 WBC (Bld) 9.5 % Normal 5.0-12.0 [facility] Comment on above: Performed By: #### L [id number] ####[facility] ([facility])[address] [place] [address] Neutrophils (Bld) [#/Vol] 5.08 10*3/uL Normal 1.60-7.60 [facility] Comment on above: Performed By: #### L [id number] ####[facility] ([facility])[address] [place] [address] Neutrophils/100 WBC (Bld) 65.9 % Normal 40.0-72.0 [facility] Comment on above: Performed By: #### L [id number] ####[facility] ([facility])[address] [place] [address] NRBC (PER 100 WBCS) BY AUTOMATED COUNT 0.0 % Normal 0 [facility] Comment on above: Performed By: #### L [id number] ####[facility] ([facility])[address] [place] [address] PLATELETS (10*3/UL) IN BLOOD AUTOMATED COUNT 286 10*3/uL Normal 150-400 [facility] Comment on above: Performed By: #### L [id number] ####[facility] ([facility])[address] [place], [place] [address] RBC (Bld) [#/Vol] 4.24 10*6/uL Normal 3.80-5.00 [facility] Comment on above: Performed By: #### L [id number] ####[facility] ([facility])[address] [place], [place] [address] WBC (Bld) [#/Vol] 7.70 10*3/uL Normal 4.00-10.60 [facility] Comment on above: Performed By: #### L [id number] ####[facility] ([facility])[address] [place] [address] COMPREHENSIVE METABOLIC PANE Sadiq 09-20-2024 Albumin [Mass/Vol] 3.7 g/dL Normal 3.5-5.7 [facility] Comment on above: Performed By: #### L [id number] #### [facility] ([facility]) [address] [place] [address] ALP [Catalytic activity/Vol] 44 U/L Normal 34-104 [facility] Comment on above: Performed By: #### L [id number] #### [facility] ([facility]) [address] [place] [address] ALT [Catalytic activity/Vol] 12 U/L Normal 7-52 [facility] Comment on above: Performed By: #### L [id number] #### [facility] ([facility]) [address] [place] [address] Anion gap [Moles/Vol] 11 mmol/L Normal 7-20 [facility] Comment on above: Performed By: #### L [id number] #### [facility] ([facility]) [address] [place] [address] AST [Catalytic activity/Vol] 22 U/L Normal 13-39 [facility] Comment on above: Performed By: #### L [id number] #### [facility] ([facility]) [address] [place] [address] Bilirubin [Mass/Vol] 0.5 mg/dL Normal 0.3-1.0 [facility] Comment on above: Performed By: #### L [id number] #### [facility] ([facility]) [address] [place] [address] Calcium [Mass/Vol] 9.0 mg/dL Normal 8.6-10.3 [facility] Comment on above: Performed By: #### L [id number] #### [facility] ([facility]) [address] [place] [address] Chloride [Moles/Vol] 104 mmol/L Normal 98-107 [facility] Comment on above: Performed By: #### L [id number] #### [facility] ([facility]) [address] [place] [address] CO2 [Moles/Vol] 27 mmol/L Normal 21-31 [facility] Comment on above: Performed By: #### L [id number] #### [facility] ([facility]) [address] [place] [address] Creatinine [Mass/Vol] 0.86 mg/dL Normal 0.60-1.20 [facility] Comment on above: Performed By: #### L [id number] #### [facility] ([facility]) [address] [place] [address] GLOMERULAR FILTRATION RATE ML/MIN/1.73 SQ M.PREDICTED 67.0 mL/min/1.73m*2 Normal >60.0 [facility] Comment on above: Result Comment: The [facility]???s estimated glomerular filtration rate (eGFR) will no longer include consideration of race in its calculation. The National Kid[employer] Foundation???s eGFR Task Force developed new recommendations for the estimation of the glomerular filtration rate in the [place] They recommend immediate implementation of the new equation refit without the race variable in all laboratories because the calculation does not include race. In addition to not including race in the calculation and reporting, it included diversity in its development, and has acceptable performance characteristics and potential consequences that do not disproportionately affect any one group of individuals. Performed By: #### L [id number] #### [facility] ([facility]) [address] [place] [address] Glucose [Mass/Vol] 115 mg/dL High 70-100 [facility] Comment on above: Performed By: #### L [id number] #### [facility] ([facility]) [address] [place] [address] Potassium [Moles/Vol] 4.1 mmol/L Normal 3.5-5.1 [facility] Comment on above: Performed By: #### L [id number] #### [facility] ([facility]) [address] [place] [address] Protein [Mass/Vol] 6.2 g/dL Normal 6.0-8.3 [facility] Comment on above: Performed By: #### L [id number] #### [facility] ([facility]) [address] [place] [address] Sodium [Moles/Vol] 138 mmol/L Normal 136-145 [facility] Comment on above: Performed By: #### L [id number] #### [facility] ([facility]) [address] [place] [address] Urea nitrogen [Mass/Vol] 12 mg/dL Normal 7-25 [facility] Comment on above: Performed By: #### L [id number] #### [facility] ([facility]) [address] [place] [address] UREA NITROGEN/CREATININE (MASS RATIO) IN SER/PLAS 14.0 Normal [facility] Comment on above: Performed By: #### L [id number] #### [facility] ([facility]) [address] [place] [address] CONSULTon 09-20-2024 CONSULT Reason For Consult Encephalopathy without clear etiology Referring Provider: Kayleigh Rivera MD History Of Present Illness Saeed Sarabia is a 83 y.o. female who was transferred from [facility] to [facility] with cholelithiasis and acute cholecystitis. She has significant past medical history for diabetes type 2, HTN, CAD with stents, HLD, A-fib (on Eliquis), lumbar stenosis, lower back pain, right foot drop, and inability to ambulate. Reportedly patient's been confused for period of time prior to admission. Neurology consulted today due to encephalopathy. Patient was seen and examined today at bedside. She is sitting up in chair, no acute distress noted. She is accompanied by her daughter and who assist in providing pertinent health history. reports patient's memory and mentation has been slowly declining over the last 1 to 2 months. It takes her longer to answer questions, and she is more forgetful. Patient is oriented to self, knows she is in the hospital although unclear which hospital she is in, knows the month is September and the year is 2023. She tells me the president elect is Trtyrell. She is able to follow simple one-step commands, has difficulty following two-step commands but is able to with redirection and rephrasing question. 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 Family is unaware of previous stroke. Past Medical History She has a past medical history of Atrial fibrillation (CMS/HCC), CHF (congestive heart failure) (CMS/HCC), Coronary artery disease, Diabetes mellitus (CMS/HCC), Heart valve disease, Hyperlipidemia, and Hypertension. Surgical History She has a past surgical history that includes Cardiac catheterization; Cardioversion; and Back surgery. Family History Family History Problem Relation Name Age of Onset Heart attack Mother Coronary artery disease Mother Heart attack Father Coronary artery disease Father Multiple sclerosis Sister Social History She reports that she has never smoked. She has never used smokeless tobacco. She reports that she does not currently use alcohol. She reports that she does not use drugs. Allergies Morphine Medications Medications Prior to Admission Medication Sig Dispense Refill Last Dose acetaminophen (Tylenol) 500 mg tablet Take 1,000 mg by mouth every 6 (six) hours if needed for moderate pain (4-7 pain score), mild pain (1-3 pain score), headaches or fever greater than or equal to 38 degrees Celsius. Past Week apixaban (Eliquis) 5 mg tablet Take 1 tablet (5 mg) by mouth in the morning and at bedtime. 180 tablet 3 09/17/2024 bumetanide (Bumex) 1 mg tablet Take 1 tablet (1 mg) by mouth if needed (leg swelling and dyspnea). 90 tablet 3 Past Month glipiZIDE (Glucotrol) 5 mg tablet Take 1 tablet by mouth in the morning and at bedtime. 09/17/2024 lisinopril 20 mg tablet Take 1 tablet (20 mg) by mouth in the morning. 90 tablet 3 09/17/2024 metFORMIN (Glucophage) 1,000 mg tablet Take 1 tablet by mouth in the morning and at bedtime. 09/17/2024 metoprolol succinate XL (Toprol-XL) 100 mg 24 hr tablet TAKE 1 TABLET BY MOUTH IN THE MORNING 90 tablet 3 09/17/2024 rosuvastatin (Crestor) 5 mg tablet Take 1 tablet (5 mg) by mouth at bedtime. 90 tablet 3 Past Week spironolactone (Aldactone) 25 mg tablet TAKE 1/2 (ONE-HALF) OF A TABLET BY MOUTH EVERY DAY (Patient taking differently: Take 0.5 tablets by mouth if needed each day. TAKE 1/2 (ONE-HALF) OF A TABLET BY MOUTH EVERY DAY) 45 tablet 3 Past Month ezetimibe (Zetia) 10 mg tablet Take 1 tablet (10 mg) by mouth once daily as directed. (Patient taking differently: Take 0.5 tablets by mouth once daily as directed.) 90 tablet 3 nitroglycerin (Nitrostat) 0.[address] 1 tablet as needed by sublingual route. Unknown tiZANidine (Zanaflex) 4 mg tablet TAKE 1/2 (ONE-HALF) TO 1 (ONE) TABLET BY MOUTH AT BEDTIME [facility] Medic[facility] Medication Dose Route Frequency Last Admin acetaminophen 650 mg oral q6h PRN apixaban 5 mg oral BID 5 mg at 09/19/242 bumetanide 1 mg oral PRN glucose 24 g oral q15 min PRN Or dextrose 50 % in water (D50W) 25 g intravenous q15 min PRN ezetimibe 10 mg oral Once Daily 10 mg at 09/19/24 1102 insulin lispro 0-10 Units subcutaneous TID with meals 2 Units at 09/19/24 1258 And insulin lispro 0-8 Units subcutaneous Nightly lactated Ringer's 30 mL/hr intravenous Continuous lisinopril 20 mg oral Daily 20 mg at 09/19/24 1102 metoprolol succinate XL 100 mg oral q AM 100 mg at 09/19/24 1102 ondansetron ODT 4 mg oral q8h PRN 4 mg at 09/19/24 1000 Or ondansetron 4 mg intravenous q6h PRN 4 mg at 09/18/24 1105 polyethylene glycol 17 g oral Daily 17 g at 09/18/24 1541 rosuvastatin 5 mg oral Nightly 5 mg at 09/19/242 sennosides-docusate sodium 1 tablet oral BID PRN sodium chloride 10 mL intravenou (more content not included)... Normal [facility] GASTRINon 09-20-2024 GASTRIN (PG/ML) IN SER/PLAS 21 pg/mL Normal 0-100 [facility] Comment on above: Result Comment: Perf ormed By: EDMdesigner [address] [place] [id number] Roller Varnisher: Ash Worley MD, PhD CLIA Number: [id number] Performed By: #### L [id number] #### [facility] (BEAKER) [address] [place] [address] HPon 09-20-2024 HP H&P reviewed. The patient was examined and there are no changes to the H&P. Normal [facility] NURSNOTEon 09-20-[address] Ramiro rodrigez with patient being discharged from PACU to return to bed 4184 Normal [facility] NURSNOTE May resume a Regular Diet, with strict anti-reflux measures. May resume all medications as ordered by admitting physician. New prescription for Pantoprazole 40 mg PO BID. Repeat EGD Scope outpatient in 8 weeks for evaluation on ulcers and biopsy samples. Normal [facility] NURSNOTE EGD Findings: Gastri c Ulcers; Duodenal Ulcers; LA Grade A Esophagitis Normal [facility] NURSNOTE . [facility] POCT GLUCOSE METER UNSOLICIT ED RESULTSon 09-20-2024 Glucose [Mass/Vol] 138 mg/dL High 70-105 [facility] Comment on above: Order Comment: Waive d Testing in the ED is performed under the ED CLIA certificate #[id number]. Result Comment: [email or web address] Performed By: #### L [id number] ####[facility] ([facility])[address] [place] [address] Glucose [Mass/Vol] 220 mg/dL High 70-105 [facility] Comment on above: Order Comment: Waive d Testing in the ED is performed under the ED CLIA certificate #[id number]. Result Comment: srab ee Performed By: #### L [id number] ####[facility] ([facility])[address] [place] [address] Glucose [Mass/Vol] 165 mg/dL High 70-105 [facility] Comment on above: Order Comment: Waive d Testing in the ED is performed under the ED CLIA certificate #[id number]. Result Comment: [email or web address] Performed By: #### L [id number] ####[facility] ([facility])[address] [place] [address] 30on 09-19-2024 30 The patient is Moderately Stable - Low risk of patient condition declining or worsening The patient's goals for the shift include comfort The clinical goals for the shift include VSS, comfort Normal [facility] AMMONIAon 09-19-2024 AMMONIA (UMOL/L) IN PLASMA 25 umol/L Normal 18-72 [facility] Comment on above: Performed By: #### L [id number] #### [facility] [address] [place] [address] [place] CBC WITH AUTO DIFFERENTIALon 09-19-2024 Basophils (Bld) [#/Vol] 0.03 10*3/uL Normal 0.00-0.20 [facility] Comment on above: Performed By: #### L [id number] ####[facility] ([facility]ER)[address] [place] [address] Basophils/100 WBC (Bld) 0.3 % Normal 0.0-1.0 [facility] Comment on above: Performed By: #### L [id number] ####[facility] ([facility]ER)[address] [place] [address] Eosinophils (Bld) [#/Vol] 0.03 10*3/uL Normal 0.00-0.50 [facility] Comment on above: Performed By: #### L [id number] ####[facility] ([facility]ER)[address] [place] [address] Eosinophils/100 WBC (Bld) 0.3 % Normal 0.0-6.0 [facility] Comment on above: Performed By: #### L [id number] ####[facility] (BE[facility]ER)[address] [place] [address] Erythrocyte distribution width (RBC) [Ratio] 13.2 % Normal 11.5-15.0 [facility] Comment on above: Performed By: #### L [id number] ####[facility] ([facility]ER)[address] [place] [address] ERYTHROCYTE MEAN CORPUSCULAR HEMOGLOBIN CONCENTRATION (G/DL) BY AUTOMATED 32.4 g/dL Normal 32.0-35.0 [facility] Comment on above: Performed By: #### L [id number] ####[facility] ([facility])[address] [place] [address] Hematocrit (Bld) [Volume fraction] 41.3 % Normal 36.0-48.0 [facility] Comment on above: Performed By: #### L [id number] ####[facility] ([facility])[address] [place] [address] Hemoglobin (Bld) [Mass/Vol] 13.4 g/dL Normal 12.0-15.0 [facility] Comment on above: Performed By: #### L [id number] ####[facility] ([facility])[address] [place] [address] Immature granulocytes (Bld) [#/Vol] 0.03 10*3/uL Normal 0.00-0.20 [facility] Comment on above: Performed By: #### L [id number] ####[facility] ([facility])[address] [place] [address] Immature granulocytes/100 WBC (Bld) 0.3 % Normal 0.0-1.0 [facility] Comment on above: Performed By: #### L [id number] ####[facility] ([facility]ER)[address] [place] [address] Lymphocytes (Bld) [#/Vol] 2.15 10*3/uL Normal 1.20-4.00 [facility] Comment on above: Performed By: #### L [id number] ####[facility] ([facility]ER)[address] [place] [address] Lymphocytes/100 WBC (Bld) 20.7 % Normal 20.0-45.0 [facility] Comment on above: Performed By: #### L [id number] ####[facility] ([facility]ER)[address] [place] [address] MCH (RBC) [Entitic mass] 30.2 pg Normal 27.0-33.0 [facility] Comment on above: Performed By: #### L [id number] ####[facility] (BEAKER)[address] [place] [address] MCV (RBC) [Entitic vol] 93.0 fL Normal 82.0-98.0 [facility] Comment on above: Performed By: #### L [id number] ####[facility] (BEAKER)[address] [place] [address] Monocytes (Bld) [#/Vol] 0.90 10*3/uL Normal 0.10-1.00 [facility] Comment on above: Performed By: #### L [id number] ####[facility] (BEAKER)[address] [place], [place] [address] Monocytes/100 WBC (Bld) 8.7 % Normal 5.0-12.0 [facility] Comment on above: Performed By: #### L [id number] ####[facility] ([facility]ER)[address] [place] [address] Neutrophils (Bld) [#/Vol] 7.25 10*3/uL Normal 1.60-7.60 [facility] Comment on above: Performed By: #### L [id number] ####[facility] (BEAKER)[address] [place] [address] Neutrophils/100 WBC (Bld) 69.7 % Normal 40.0-72.0 [facility] Comment on above: Performed By: #### L [id number] ####[facility] (BEAKER)[address] [place] [address] NRBC (PER 100 WBCS) BY AUTOMATED COUNT 0.0 % Normal 0 [facility] Comment on above: Performed By: #### L [id number] ####[facility] ([facility]AK[facility])[address] [place] [address] PLATELETS (10*3/UL) IN BLOOD AUTOMATED COUNT 333 10*3/uL Normal 150-400 [facility] Comment on above: Performed By: #### L [id number] ####[facility] (BEAKER)[address] [place] [address] RBC (Bld) [#/Vol] 4.44 10*6/uL Normal 3.80-5.00 [facility] Comment on above: Performed By: #### L [id number] ####[facility] ([facility])[address] [place] [address] WBC (Bld) [#/Vol] 10.39 10*3/uL Normal 4.00-10.60 [facility] Comment on above: Performed By: #### L [id number] ####[facility] ([facility])[address] [place] [address] COMPREHENSIVE METABOLIC PANE Sadiq 09-19-2024 Albumin [Mass/Vol] 4.0 g/dL Normal 3.5-5.7 [facility] Comment on above: Performed By: #### L [id number] ####[facility] ([facility])[address] [place] [address] ALP [Catalytic activity/Vol] 49 U/L Normal 34-104 [facility] Comment on above: Performed By: #### L [id number] ####[facility] ([facility])[address] [place] [address] ALT [Catalytic activity/Vol] 11 U/L Normal 7-52 [facility] Comment on above: Performed By: #### L [id number] ####[facility] ([facility])[address] [place] [address] Anion gap [Moles/Vol] 14 mmol/L Normal 7-20 [facility] Comment on above: Performed By: #### L [id number] ####[facility] ([facility])[address] [place] [address] AST [Catalytic activity/Vol] 18 U/L Normal 13-39 [facility] Comment on above: Performed By: #### L [id number] ####[facility] ([facility])[address] [place] [address] Bilirubin [Mass/Vol] 0.5 mg/dL Normal 0.3-1.0 [facility] Comment on above: Performed By: #### L [id number] ####[facility] ([facility])[address] [place] [address] Calcium [Mass/Vol] 9.4 mg/dL Normal 8.6-10.3 [facility] Comment on above: Performed By: #### L [id number] ####[facility] ([facility])[address] [place] [address] Chloride [Moles/Vol] 102 mmol/L Normal 98-107 [facility] Comment on above: Performed By: #### L [id number] ####[facility] ([facility])[address] [place] [address] CO2 [Moles/Vol] 25 mmol/L Normal 21-31 [facility] Comment on above: Performed By: #### L [id number] ####[facility] ([facility])[address] [place] [address] Creatinine [Mass/Vol] 0.79 mg/dL Normal 0.60-1.20 [facility] Comment on above: Performed By: #### L [id number] ####[facility] ([facility])[address] [place] [address] GLOMERULAR FILTRATION RATE ML/MIN/1.73 SQ M.PREDICTED 74.2 mL/min/1.73m*2 Normal >60.0 [facility] Comment on above: Result Comment: The [facility]???s estimated glomerular filtration rate (eGFR) will no longer include consideration of race in its calculation. The National Kidney Foundation???s eGFR Task Force developed new recommendations for the estimation of the glomerular filtration rate in the [place] They recommend immediate implementation of the new equation refit without the race variable in all laboratories because the calculation does not include race. In addition to not including race in the calculation and reporting, it included diversity in its development, and has acceptable performance characteristics and potential consequences that do not disproportionately affect any one group of individuals. Performed By: #### L [id number] ####[facility] ([facility])[address] [place] [address] Glucose [Mass/Vol] 147 mg/dL High 70-100 [facility] Comment on above: Performed By: #### L [id number] ####[facility] ([facility])[address] [place] [address] Potassium [Moles/Vol] 4.0 mmol/L Normal 3.5-5.1 [facility] Comment on above: Performed By: #### L [id number] ####[facility] ([facility])[address] [place] [address] Protein [Mass/Vol] 6.5 g/dL Normal 6.0-8.3 [facility] Comment on above: Performed By: #### L [id number] ####[facility] ([facility])[address] [place] [address] Sodium [Moles/Vol] 137 mmol/L Normal 136-145 [facility] Comment on above: Performed By: #### L [id number] ####[facility] ([facility])[address] [place] [address] Urea nitrogen [Mass/Vol] 12 mg/dL Normal 7-25 [facility] Comment on above: Performed By: #### L [id number] ####[facility] ([facility])[address] [place] [address] UREA NITROGEN/CREATININE (MASS RATIO) IN SER/PLAS 15.2 Normal [facility] Comment on above: Performed By: #### L [id number] ####[facility] ([facility])[address] [place] [address] MAGNESIUMon 09-19-2024 Magnesium [Mass/Vol] 1.7 mg/dL Low 1.9-2.7 [facility] Comment on above: Performed By: #### L [id number] ####[facility] ([facility])[address] [place] [address] POCT GLUCOSE METER UNSOLICIT ED RESULTSon 09-19-2024 Glucose [Mass/Vol] 140 mg/dL High 70-105 [facility] Comment on above: Order Comment: Waive d Testing in the ED is performed under the ED CLIA certificate #[id number]. Result Comment: [email or web address] Performed By: #### L [id number] ####[facility] (BEAKER)[address] [place] [address] Glucose [Mass/Vol] 146 mg/dL High 70-105 [facility] Comment on above: Order Comment: Waive d Testing in the ED is performed under the ED CLIA certificate #[id number]. Result Comment: [email or web address] Performed By: #### L [id number] ####[facility] ([facility])[address] [facility] [place] [address] Glucose [Mass/Vol] 198 mg/dL High 70-105 [facility] Comment on above: Order Comment: Waive d Testing in the ED is performed under the ED CLIA certificate #[id number]. Result Comment: [email or web address] Performed By: #### L [id number] #### [facility] [address] [place] [address] [facility] Glucose [Mass/Vol] 151 mg/dL High 70-105 [facility] Comment on above: Order Comment: Waive d Testing in the ED is performed under the ED CLIA certificate #[id number]. Result Comment: [email or web address] Performed By: #### L [id number] ####[facility] (AKER)[address] [place] [address] 30on 09-18-2024 30 The patient is Moderately Stable - Low risk of patient condition declining or worsening The patient's goals for the shift include comfort The clinical goals for the shift include comfort Normal [facility] 30 Daily Case Managemen t Update Multidisciplinary rounds have been completed. Barriers to Discharge: Patient is a transfer from [facility] for c/o abd pain, AMS and CT scan of abdomen that had concern for acute vs chronic cholecystitis and cholelithiasis. HIDA scan today, GI and GS were consulted. Discharge dispo: PT/OT ordered, OT rec SNF, PT eval pending. SW is consulted and made aware. Diet: Dietary Orders (From admission, onward) Start Ordered 09/19/24 0001 Diet NPO Diet effective midnight Comments: Sips with medications Question: Reason for NPO: Answer: Operation/Procedure 09/18/24 1656 09/18/24 1302 Regular Diet Pancreatitis/Low Fat Diet effective now Question Answer Comment Room Service? Yes Fat restriction: Pancreatitis/Low Fat 09/18/24 1302 Physician Expected Discharge Date: 09/19/2024 Discharge Delays: PT Six Click Score: 17 OT Six Click Score: 17 PT Recommendations: OT Recommendations: retirement facility placement (vs return home with 24 hour supervision and Home OT) New Consults: Consult Orders (From admission, onward) Start Ordered 09/17/242218 Inpatient consult to General Surgery Once Specialty: General Surgery Provider: (Not yet assigned) Question Answer Comment Consulting Group GENERAL SURGERY TEAM Reason for Consult? Cholelithiasis with with cholecystitis Level of Consultation Consultation and Management 09/17/24221709/17/242130 Inpatient consult to Hospitalist Once Specialty: Internal Medicine Provider: (Not yet assigned) Question Answer Comment Consulting Group HOSPITALIST (ADMIT/FLOAT) Reason for Consult? confusion, cholecystitis Level of Consultation Consultation and Management 09/17/242130 Ancillary Consults (From admission, onward) Start Ordered 09/17/242213 Inpatient Consult to Social Work Once Provider: (Not yet assigned) Question Answer Comment Select all services needed for the patient Other Other: Facilitate discharge plans 09/17/242216 Therapy Orders (From admission, onward) Start Ordered 09/17/242213 PT eval and treat Until therapy completed Question: Reason for PT? Answer: Evaluate and treat 09/17/24221609/17/24 221 OT eval and treat Until therapy completed Question: Reason for OT? Answer: Evaluate and treat 09/17/242216 Normal [facility] 30 The patient is Moderately Stable - Low risk of patient condition declining or worsening The patient's goals for the shift include The clinical goals for the shift include Problem: Pain - Adult Goal: Verbalizes/displays adequate comfort level or baseline comfort level Outcome: Not Progressing Problem: Safety - Adult Goal: Free from fall injury Outcome: Not Progressing Problem: Discharge Planning Goal: Discharge to home or other facility with appropriate resources Outcome: Not Progressing Problem: Chronic Conditions and Co-morbidities Goal: Patient's chronic conditions and co-morbidity symptoms are monitored and maintained or improved Outcome: Not Progressing Normal [facility] BASIC METABOLIC PANELon 12-1 Anion gap [Moles/Vol] 13 mmol/L Normal 7-20 [facility] Comment on above: Performed By: #### L [id number] #### [facility] [address] [place] [address] [facility] Calcium [Mass/Vol] 9.0 mg/dL Normal 8.6-10.3 [facility] Comment on above: Performed By: #### L [id number] #### [facility] [address] [place] [address] [facility] Chloride [Moles/Vol] 102 mmol/L Normal 98-107 [facility] Comment on above: Performed By: #### L [id number] #### [facility] [address] [place] [address] [facility] CO2 [Moles/Vol] 27 mmol/L Normal 21-31 [facility] Comment on above: Performed By: #### L [id number] #### [facility] [address] [place] [address] [facility] Creatinine [Mass/Vol] 0.72 mg/dL Normal 0.60-1.20 [facility] Comment on above: Performed By: #### L [id number] #### [facility] [address] [place] [address] [facility] GLOMERULAR FILTRATION RATE ML/MIN/1.73 SQ M.PREDICTED 82.9 mL/min/1.73m*2 Normal >60.0 [facility] Comment on above: Result Comment: The [facility]???s estimated glomerular filtration rate (eGFR) will no longer include consideration of race in its calculation. The National Kidney Foundation???s eGFR Task Force developed new recommendations for the estimation of the glomerular filtration rate in the [place] They recommend immediate implementation of the new equation refit without the race variable in all laboratories because the calculation does not include race. In addition to not including race in the calculation and reporting, it included diversity in its development, and has acceptable performance characteristics and potential consequences that do not disproportionately affect any one group of individuals. Performed By: #### L [id number] #### [facility] [address] [place] [address] [facility] Glucose [Mass/Vol] 112 mg/dL High 70-100 [facility] Comment on above: Performed By: #### L [id number] #### [facility] [address] [place] [address] [facility] Potassium [Moles/Vol] 4.0 mmol/L Normal 3.5-5.1 [facility] Comment on above: Performed By: #### L [id number] #### [facility] [address] [place] [address] [facility] Sodium [Moles/Vol] 138 mmol/L Normal 136-145 [facility] Comment on above: Performed By: #### L [id number] #### [facility] [address] [place] [address] [facility] Urea nitrogen [Mass/Vol] 17 mg/dL Normal 7-25 [facility] Comment on above: Performed By: #### L [id number] #### [facility] [address] [place] [address] [place] UREA NITROGEN/CREATININE (MASS RATIO) IN SER/PLAS 23.6 Normal [facility] Comment on above: Performed By: #### L [id number] #### [facility] [address] [place] [address] [facility] CBCon 09-18-2024 Erythrocyte distribution width (RBC) [Ratio] 13.2 % Normal 11.5-15.0 [facility] Comment on above: Performed By: #### L [id number] #### [facility] [address] [place] [address] [facility] ERYTHROCYTE MEAN CORPUSCULAR HEMOGLOBIN CONCENTRATION (G/DL) BY AUTOMATED 31.5 g/dL Low 32.0-35.0 [facility] Comment on above: Performed By: #### L [id number] #### [facility] [address] [place] [address] [place] Hematocrit (Bld) [Volume fraction] 39.1 % Normal 36.0-48.0 [facility] Comment on above: Performed By: #### L [id number] #### [facility] [address] Hemoglobin (Bld) [Mass/Vol] 12.3 g/dL Normal 12.0-15.0 [facility] Comment on above: Performed By: #### L [id number] #### [facility] [address] MCH (RBC) [Entitic mass] 30.4 pg Normal 27.0-33.0 [facility] Comment on above: Performed By: #### L [id number] #### [facility] [address] MCV (RBC) [Entitic vol] 96.8 fL Normal 82.0-98.0 [facility] Comment on above: Performed By: #### L [id number] #### [facility] [address] PLATELETS (10*3/UL) IN BLOOD AUTOMATED COUNT 284 10*3/uL Normal 150-400 [facility] Comment on above: Performed By: #### L [id number] #### [facility] [address] RBC (Bld) [#/Vol] 4.04 10*6/uL Normal 3.80-5.00 [facility] Comment on above: Performed By: #### L [id number] #### [facility] [address] WBC (Bld) [#/Vol] 6.54 10*3/uL Normal 4.00-10.60 [facility] Comment on above: Performed By: #### L [id number] #### [facility] [address] CONSULTon 09-18-2024 CONSULT -- Attestation signed by Anaya Khanna MD at 09/18/2024 10:42 PM The patient was seen and examined. Agree with assessment and plan. The patient was admitted with epigastric and right upper quadrant in addition to mid abdominal pain. The symptoms of abdominal pain associated with change in mental status. HIDA scan was negative for cholecystitis. No signs of choledocholithiasis. Liver function tests are normal. The patient is being scheduled for brain imaging. Tentative plan for upper endoscopy to rule out peptic ulcer disease September 19, 2024. Initial Gastroenterology/Hepat ology Consultation Note IDENTIFYING DATA PATIENT: Saeed Sarabia ADMIT DATE: 09/17/2024 TIME OF EVALUATION: 09/18/2024 9:42 AM Reason for Consult: Abdominal pain and cholelithiasis/Cholecy stitis Admitting Physician: Kayleigh Rivera MD HISTORY OF PRESENT ILLNESS Saeed Sarabia is a 83 y.o. female with a known past medical history significant for diabetes mellitus, hypertension, CAD s/p stent placement, HLD, A-fib on Eliquis, history of lumbar stenosis and lower back pain who was transferred from [facility] ER due to abdominal pain and the diagnosis of cholelithiasis with acute cholecystitis. History was taken from chart since the patient was a poor historian. The story of the patient goes back to 2 months ago when she has been complaining of abdominal pain, poor appetite and worsening her mental status. She was taken to [facility] ER for the evaluation of the abdominal pain. CT scan of the abdomen and pelvis there showed significant cholelithiasis with findings suggestive of acute cholecystitis. Therefore, the patient was transferred to our facility for further evaluation. Upon my assessment: Patient was afebrile and hemodynamically stable. CBC unremarkable. CMP showed normal lipase and LFTs. Abdominal exam was unremarkable. GI HISTORY SUMMARY TABLE Last EGD Last colonoscopy Primary GI physician PAST MEDICAL, SURGICAL, FAMILY, and SOCIAL HISTORY Past Medical History: Past Medical History: Diagnosis Date Atrial fibrillation (CMS/HCC) CHF (congestive heart failure) (CMS/HCC) Coronary artery disease Diabetes mellitus (CMS/HCC) Heart valve disease Hyperlipidemia Hypertension Past Surgical History: Past Surgical History: Procedure Laterality Date BACK SURGERY CARDIAC CATHETERIZATION CARDIOVERSION Family History: Family History Problem Relation Name Age of Onset Heart attack Mother Coronary artery disease Mother Heart attack Father Coronary artery disease Father Multiple sclerosis Sister Social History: Social History Tobacco Use Smoking status: Never Smokeless tobacco: Never Vaping Use Vaping status: Never Used Substance Use Topics Alcohol use: Not Currently Drug use: Never Allergies: Allergies Allergen Reactions Morphine GI intolerance nausea MEDICATIONS Home Medications: Prior to Admission medications Medication Sig Start Date End Date Taking? Authorizing Provider acetaminophen (Tylenol) 500 mg tablet 500 mg. 04/14/22 Historical Provider, apixaban (Eliquis) 5 mg tablet Take 1 tablet (5 mg) by mouth in the morning and at bedtime. 07/13/23 Nela Garcia NP bumetanide (Bumex) 1 mg tablet Take 1 tablet (1 mg) by mouth if needed (leg swelling and dyspnea). 02/02/24 Jose Roberson MD ezetimibe (Zetia) 10 mg tablet Take 1 tablet (10 mg) by mouth once daily as directed. 05/22/24 05/22/25 Jose Roberson MD glipiZIDE (Glucotrol) 5 mg tablet Take 1 tablet by mouth in the morning and at bedtime. Historical Provider, lisinopril 20 mg tablet Take 1 tablet (20 mg) by mouth in the morning. 02/02/24 02/01/25 Jose Roberson MD metFORMIN (Glucophage) 1,000 mg tablet Take 1 tablet by mouth in the morning and at bedtime. Historical Provider, metoprolol succinate XL (Toprol-XL) 100 mg 24 hr tablet TAKE 1 TABLET BY MOUTH IN THE MORNING 08/12/24 Nela Garcia NP nitroglycerin (Nitrostat) 0.[address] 1 tablet as needed by sublingual route. Historical Provider, rosuvastatin (Crestor) 5 mg tablet Take 1 tablet (5 mg) by mouth at bedtime. 07/30/24 Nela Garcia NP spironolactone (Aldactone) 25 mg tablet TAKE 1/2 (ONE-HALF) OF A TABLET BY MOUTH EVERY DAY 09/03/24 Jose Roberson MD tiZANidine (Zanaflex) 4 mg tablet TAKE 1/2 (ONE-HALF) TO 1 (ONE) TABLET BY MOUTH AT BEDTIME Historical Provider, Current Medications: cefTRIAXone, 2 g, intravenous, q24h insulin lispro, 0-10 Units, subcutaneous, TID with meals And insulin lispro, 0-8 Units, subcutaneous, Nightly metroNIDAZOLE, 500 mg, intravenous, q12h PRNs: acetaminophen, 650 mg, q6h PRN glucose, 24 g, q15 min PRN Or dextrose 50 % in water (D50W), 25 g, q15 min PRN ondanse (more content not included)... Normal [facility] 09-18-2024 -- Attestation signed by Anaya Khanna MD at 09/18/2024 10:42 PM The patient was seen and examined. Agree with assessment and plan. The patient was admitted with epigastric and right upper quadrant in addition to mid abdominal pain. The symptoms of abdominal pain associated with change in mental status. HIDA scan was negative for cholecystitis. No signs of choledocholithiasis. Liver function tests are normal. The patient is being scheduled for brain imaging. Tentative plan for upper endoscopy to rule out peptic ulcer disease September 19, 2024. Initial Gastroenterology/Hepat ology Consultation Note IDENTIFYING DATA PATIENT: Saeed Sarabia ADMIT DATE: 09/17/2024 TIME OF EVALUATION: 09/18/2024 9:42 AM Reason for Consult: Abdominal pain and cholelithiasis/Cholecy stitis Admitting Physician: Kayleigh Rivera MD HISTORY OF PRESENT ILLNESS Saeed Sarabia is a 83 y.o. female with a known past medical history significant for diabetes mellitus, hypertension, CAD s/p stent placement, HLD, A-fib on Eliquis, history of lumbar stenosis and lower back pain who was transferred from [facility] ER due to abdominal pain and the diagnosis of cholelithiasis with acute cholecystitis. History was taken from chart since the patient was a poor historian. The story of the patient goes back to 2 months ago when she has been complaining of abdominal pain, poor appetite and worsening her mental status. She was taken to [facility] ER for the evaluation of the abdominal pain. CT scan of the abdomen and pelvis there showed significant cholelithiasis with findings suggestive of acute cholecystitis. Therefore, the patient was transferred to our facility for further evaluation. Upon my assessment: Patient was afebrile and hemodynamically stable. CBC unremarkable. CMP showed normal lipase and LFTs. Abdominal exam was unremarkable. GI HISTORY SUMMARY TABLE Last EGD Last colonoscopy Primary GI physician PAST MEDICAL, SURGICAL, FAMILY, and SOCIAL HISTORY Past Medical History: Past Medical History: Diagnosis Date Atrial fibrillation (CMS/HCC) CHF (congestive heart failure) ([facility]/HCC) Coronary artery disease Diabetes mellitus ([facility]/HCC) Heart valve disease Hyperlipidemia Hypertension Past Surgical History: Past Surgical History: Procedure Laterality Date BACK SURGERY CARDIAC CATHETERIZATION CARDIOVERSION Family History: Family History Problem Relation Name Age of Onset Heart attack Mother Coronary artery disease Mother Heart attack Father Coronary artery disease Father Multiple sclerosis Sister Social History: Social History Tobacco Use Smoking status: Never Smokeless tobacco: Never Vaping Use Vaping status: Never Used Substance Use Topics Alcohol use: Not Currently Drug use: Never Allergies: Allergies Allergen Reactions Morphine GI intolerance nausea MEDICATIONS Home Medications: Prior to Admission medications Medication Sig Start Date End Date Taking? Authorizing Provider acetaminophen (Tylenol) 500 mg tablet 500 mg. 04/14/22 Historical Provider, apixaban (Eliquis) 5 mg tablet Take 1 tablet (5 mg) by mouth in the morning and at bedtime. 07/13/23 Nela Garcia NP bumetanide (Bumex) 1 mg tablet Take 1 tablet (1 mg) by mouth if needed (leg swelling and dyspnea). 02/02/24 Jose Roberson MD ezetimibe (Zetia) 10 mg tablet Take 1 tablet (10 mg) by mouth once daily as directed. 05/22/24 05/22/25 Jose Roberson MD glipiZIDE (Glucotrol) 5 mg tablet Take 1 tablet by mouth in the morning and at bedtime. Historical Provider, lisinopril 20 mg tablet Take 1 tablet (20 mg) by mouth in the morning. 02/02/24 02/01/25 Jose Roberson MD metFORMIN (Glucophage) 1,000 mg tablet Take 1 tablet by mouth in the morning and at bedtime. Historical Provider, metoprolol succinate XL (Toprol-XL) 100 mg 24 hr tablet TAKE 1 TABLET BY MOUTH IN THE MORNING 08/12/24 Nela Garcia NP nitroglycerin (Nitrostat) 0.[address] 1 tablet as needed by sublingual route. Historical Provider, rosuvastatin (Crestor) 5 mg tablet Take 1 tablet (5 mg) by mouth at bedtime. 07/30/24 Nela Garcia NP spironolactone (Aldactone) 25 mg tablet TAKE 1/2 (ONE-HALF) OF A TABLET BY MOUTH EVERY DAY 09/03/24 Jose Roberson MD tiZANidine (Zanaflex) 4 mg tablet TAKE 1/2 (ONE-HALF) TO 1 (ONE) TABLET BY MOUTH AT BEDTIME Historical Provider, Current Medications: cefTRIAXone, 2 g, intravenous, q24h insulin lispro, 0-10 Units, subcutaneous, TID with meals And insulin lispro, 0-8 Units, subcutaneous, Nightly metroNIDAZOLE, 500 mg, intravenous, q12h PRNs: acetaminophen, 650 mg, q6h PRN glucose, 24 g, q15 min PRN Or dextrose 50 % in water (D50W), 25 g, q15 min PRN ondanse (more content not included)... Normal [facility] MR BRAIN WO CONTRASTon 09-18 MR BRAIN WO CONTRAST MR BRAIN WO CONTRAS T 09/19/2024 3:46 PM HISTORY: Mental status change, persistent or worsening transient altered level awareness. AMS with normal CT . PROTOCOL: Multiplanar multisequence MRI of brain without intravenous contrast. COMPARISON: CT 09/17/2024. FINDINGS: No acute ischemia, no ventricular outflow obstruction. No acute intracranial hemorrhage. Moderate burden white matter FLAIR hyperintensities of the, subcortical and periventricular white matter. Sequentially nonacute lacunar infarct right centrum semiovale. Unremarkable intracranial vascular flow voids. Unremarkable visualized suprahyoid neck, scalp soft tissues. Lens replacements. Mild mucosal thickening ethmoid air cells. A dentulous maxilla. IMPRESSION: Moderate periventricular FLAIR hyperintensities, most often seen setting of chronic microvascular ischemia. 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 No acute intracranial abnormality. Electronically signed: Otilio Wilson MD. 8 Invalid Interpretation Code [facility] POCT GLUCOSE METER UNSOLICIT ED RESULTSon 09-18-2024 Glucose [Mass/Vol] 154 mg/dL High 70-105 [facility] Comment on above: Order Comment: Waive d Testing in the ED is performed under the ED CLIA certificate #[id number]. Result Comment: [email or web address] Performed By: #### L [id number] ####[facility] (BEAKER)[address] [place] [address] Glucose [Mass/Vol] 211 mg/dL High 70-105 [facility] Comment on above: Order Comment: Waive d Testing in the ED is performed under the ED CLIA certificate #[id number]. Result Comment: danica ppe Performed By: #### L [id number] ####[facility] (BEAKER)[address] [place] [address] Glucose [Mass/Vol] 170 mg/dL High 70-105 [facility] Comment on above: Order Comment: Waive d Testing in the ED is performed under the ED CLIA certificate #[id number]. Result Comment: [email or web address] Performed By: #### L [id number] ####[facility] (BEAKER)[address] [place] [address] Glucose [Mass/Vol] 125 mg/dL High 70-105 [facility] Comment on above: Order Comment: Waive d Testing in the ED is performed under the ED CLIA certificate #[id number]. Result Comment: [email or web address] [email or web address] Performed By: #### L [id number] #### [facility] THER[facility] [address] T4, FREEon 09-18-2024 THYROXINE (T4) FREE (NG/DL) IN SER/PLAS 1.38 ng/dL Normal 0.71-1.85 [facility] Comment on above: Performed By: #### L [id number] #### [facility] [address] TSH3 REFLEX TO FT4on 024 THYROTROPIN (MIU/L) IN SER/PLAS BY DETECTION LIMIT <= 0.05 MIU/L 0.04 mIU/L Low 0.34-5.60 [facility] Comment on above: Performed By: #### L [id number] #### [facility] [address] CALCIUM, IONIZEDon CALCIUM IONIZED (MMOL/L) IN BLOOD 1.02 mmol/L Low 1.15-1.33 [facility] Comment on above: Performed By: #### L [id number] #### [facility] [address] CBC WITH AUTO DIFFERENTIALon 09-17-2024 Basophils (Bld) [#/Vol] 0.02 10*3/uL Normal 0.00-0.20 [facility] Comment on above: Performed By: #### L [id number] ####[facility] ([facility]AKER)[address] [place] [address] Basophils/100 WBC (Bld) 0.3 % Normal 0.0-1.0 [facility] Comment on above: Performed By: #### L [id number] ####[facility] (BEAKER)[address] [place] [address] Eosinophils (Bld) [#/Vol] 0.06 10*3/uL Normal 0.00-0.50 [facility] Comment on above: Performed By: #### L [id number] ####[facility] ([facility])[address] [place] [address] Eosinophils/100 WBC (Bld) 0.8 % Normal 0.0-6.0 [facility] Comment on above: Performed By: #### L [id number] ####[facility] ([facility])[address] [place] [address] Erythrocyte distribution width (RBC) [Ratio] 13.1 % Normal 11.5-15.0 [facility] Comment on above: Performed By: #### L [id number] ####[facility] ([facility])[address] [place] [address] ERYTHROCYTE MEAN CORPUSCULAR HEMOGLOBIN CONCENTRATION (G/DL) BY AUTOMATED 33.1 g/dL Normal 32.0-35.0 [facility] Comment on above: Performed By: #### L [id number] ####[facility] ([facility])[address] [place] [address] Hematocrit (Bld) [Volume fraction] 39.0 % Normal 36.0-48.0 [facility] Comment on above: Performed By: #### L [id number] ####[facility] ([facility])[address] [place] [address] Hemoglobin (Bld) [Mass/Vol] 12.9 g/dL Normal 12.0-15.0 [facility] Comment on above: Performed By: #### L [id number] ####[facility] (BEAKER)[address] [place] [address] Immature granulocytes (Bld) [#/Vol] 0.01 10*3/uL Normal 0.00-0.20 [facility] Comment on above: Performed By: #### L [id number] ####[facility] (BEAKER)[address] [place] [address] Immature granulocytes/100 WBC (Bld) 0.1 % Normal 0.0-1.0 [facility] Comment on above: Performed By: #### L [id number] ####[facility] (BEAKER)[address] [place] [address] Lymphocytes (Bld) [#/Vol] 2.03 10*3/uL Normal 1.20-4.00 [facility] Comment on above: Performed By: #### L [id number] ####[facility] (BEAKER)[address] [place] [address] Lymphocytes/100 WBC (Bld) 28.6 % Normal 20.0-45.0 [facility] Comment on above: Performed By: #### L [id number] ####[facility] ([facility])[address] [place] [address] MCH (RBC) [Entitic mass] 30.2 pg Normal 27.0-33.0 [facility] Comment on above: Performed By: #### L [id number] ####[facility] (BEAKER)[address] [place] [address] MCV (RBC) [Entitic vol] 91.3 fL Normal 82.0-98.0 [facility] Comment on above: Performed By: #### L [id number] ####[facility] (BEAKER)[address] [place] [address] Monocytes (Bld) [#/Vol] 0.67 10*3/uL Normal 0.10-1.00 [facility] Comment on above: Performed By: #### L [id number] ####[facility] (BE[facility]ER)[address] [place] [address] Monocytes/100 WBC (Bld) 9.4 % Normal 5.0-12.0 [facility] Comment on above: Performed By: #### L [id number] ####[facility] ([facility]ER)[address] [place] [address] Neutrophils (Bld) [#/Vol] 4.31 10*3/uL Normal 1.60-7.60 [facility] Comment on above: Performed By: #### L [id number] ####[facility] ([facility])[address] [place] [address] Neutrophils/100 WBC (Bld) 60.8 % Normal 40.0-72.0 [facility] Comment on above: Performed By: #### L [id number] ####[facility] ([facility])[address] [place] [address] NRBC (PER 100 WBCS) BY AUTOMATED COUNT 0.0 % Normal 0 [facility] Comment on above: Performed By: #### L [id number] ####[facility] ([facility])[address] [place] [address] PLATELETS (10*3/UL) IN BLOOD AUTOMATED COUNT 301 10*3/uL Normal 150-400 [facility] Comment on above: Performed By: #### L [id number] ####[facility] ([facility])[address] [place] [address] RBC (Bld) [#/Vol] 4.27 10*6/uL Normal 3.80-5.00 [facility] Comment on above: Performed By: #### L [id number] ####[facility] ([facility])[address] [place], [place] [address] WBC (Bld) [#/Vol] 7.10 10*3/uL Normal 4.00-10.60 [facility] Comment on above: Performed By: #### L [id number] ####[facility] ([facility]ER)[address] [place] [address] COMPREHENSIVE METABOLIC PANE Sadiq 09-17-2024 Albumin [Mass/Vol] 3.9 g/dL Normal 3.5-5.7 [facility] Comment on above: Performed By: #### L [id number] #### [facility] ([facility]) [address] [place] [address] ALP [Catalytic activity/Vol] 43 U/L Normal 34-104 [facility] Comment on above: Performed By: #### L [id number] #### [facility] ([facility]) [address] [place] [address] ALT [Catalytic activity/Vol] 11 U/L Normal 7-52 [facility] Comment on above: Performed By: #### L [id number] #### [facility] ([facility]) [address] [place] [address] Anion gap [Moles/Vol] 14 mmol/L Normal 7-20 [facility] Comment on above: Performed By: #### L [id number] #### [facility] ([facility]) [address] [place] [address] AST [Catalytic activity/Vol] 15 U/L Normal 13-39 [facility] Comment on above: Performed By: #### L [id number] #### [facility] ([facility]) [address] [place] [address] Bilirubin [Mass/Vol] 0.5 mg/dL Normal 0.3-1.0 [facility] Comment on above: Performed By: #### L [id number] #### [facility] ([facility]) [address] [place] [address] Calcium [Mass/Vol] 9.2 mg/dL Normal 8.6-10.3 [facility] Comment on above: Performed By: #### L [id number] #### [facility] ([facility]) [address] [place] [address] Chloride [Moles/Vol] 102 mmol/L Normal 98-107 [facility] Comment on above: Performed By: #### L [id number] #### [facility] ([facility]) [address] [place] [address] CO2 [Moles/Vol] 24 mmol/L Normal 21-31 [facility] Comment on above: Performed By: #### L [id number] #### [facility] ([facility]) [address] [place] [id number] Creatinine [Mass/Vol] 0.68 mg/dL Normal 0.60-1.20 [facility] Comment on above: Performed By: #### L [id number] #### [facility] ([facility]) [address] [place] [id number] GLOMERULAR FILTRATION RATE ML/MIN/1.73 SQ M.PREDICTED 86.4 mL/min/1.73m*2 Normal >60.0 [facility] Comment on above: Result Comment: The [facility]???s estimated glomerular filtration rate (eGFR) will no longer include consideration of race in its calculation. The National Kid[employer] Foundation???s eGFR Task Force developed new recommendations for the estimation of the glomerular filtration rate in the [place] They recommend immediate implementation of the new equation refit without the race variable in all laboratories because the calculation does not include race. In addition to not including race in the calculation and reporting, it included diversity in its development, and has acceptable performance characteristics and potential consequences that do not disproportionately affect any one group of individuals. Performed By: #### L [id number] #### [facility] ([facility]) [address] [place] [id number] Glucose [Mass/Vol] 128 mg/dL High 70-100 [facility] Comment on above: Performed By: #### L [id number] #### [facility] ([facility]) [address] [place] [id number] Potassium [Moles/Vol] 4.2 mmol/L Normal 3.5-5.1 [facility] Comment on above: Performed By: #### L [id number] #### [facility] ([facility]) [address] [place] [id number] Protein [Mass/Vol] 6.7 g/dL Normal 6.0-8.3 [facility] Comment on above: Performed By: #### L [id number] #### [facility] ([facility]) [address] [place] [id number] Sodium [Moles/Vol] 136 mmol/L Normal 136-145 [facility] Comment on above: Performed By: #### L [id number] #### [facility] ([facility]) [address] [place] [address] Urea nitrogen [Mass/Vol] 16 mg/dL Normal 7-25 [facility] Comment on above: Performed By: #### L [id number] #### [facility] ([facility]) [address] [place] [address] UREA NITROGEN/CREATININE (MASS RATIO) IN SER/PLAS 23.5 Normal [facility] Comment on above: Performed By: #### L [id number] #### [facility] ([facility]) [address] [place] [address] CONSULTon 09-17-2024 CONSULT Reason For Consult Abdominal pain Referring Provider: [facility] History Of Present Illness Saeed Sarabia is a 83 y.o. female presenting with Abdominal Pain; Altered Mental Status. Patient is not at baseline mental status per and daughter at bedside, states she has had AMS for at least 1 day with recent history of UTI for which she just completed antibiotics for. Patient was transferred from [facility], where she had CT scan of abdomen that found acute vs chronic cholecystitis and cholelithiasis, she also had CT of brain that was negative for any acute intracranial process. History is primarily gathered from at bedside. Patient has been complaining of chronic abdominal pain for at least one month that has been significantly worse for the past 4 days. Pain was described as sharp pain that is rated 8/10 in severity, is constant, and does not radiate anywhere and does not appear to be exacerbated or relieved with eating. It is not clear if there was any nausea per the and no vomiting has happened per the . States no issues with constipation or diarrhea. reports she had a bowel movement yesterday and she last ate at 11 AM yesterday. She has been tolerating drinking fluids. Patient was also given Rocephin and Flagyll at [facility] during her ER visit today, prior to transfer. Past Medical History She has a past medical history of Atrial fibrillation (CMS/HCC), CHF (congestive heart failure) (CMS/HCC), Coronary artery disease, Diabetes mellitus (CMS/HCC), Heart valve disease, Hyperlipidemia, and Hypertension. Surgical History She has a past surgical history that includes Cardiac catheterization; Cardioversion; and Back surgery. Family History Family History Problem Relation Name Age of Onset Heart attack Mother Coronary artery disease Mother Heart attack Father Coronary artery disease Father Multiple sclerosis Sister Social History She reports that she has never smoked. She has never used smokeless tobacco. She reports that she does not currently use alcohol. She reports that she does not use drugs. Allergies Morphine Medications (Not in a hospital admission) No current facility-administered medications for this encounter. Review of Systems Review of Systems Constitutional: Positive for appetite change. Negative for activity change, chills and fever. HENT: Negative. Respiratory: Negative. Cardiovascular: Negative. Gastrointestinal: Positive for abdominal pain and nausea. Negative for abdominal distention, constipation, diarrhea and vomiting. Genitourinary: UTI Musculoskeletal: Positive for back pain. Skin: Negative. Psychiatric/Behavioral : Positive for confusion. Last Recorded Vitals Patient Vitals for the past 24 hrs: BP Temp Temp src Pulse Resp SpO2 Height Weight 09/17/24 1925 160/76 36.8 ???C (98.3 ???F) Oral 90 16 94 % 1.676 m (5' 6 ) 75.3 kg (166 lb) Physical Exam Physical Exam Constitutional: General: She is not in acute distress. Appearance: Normal appearance. She is normal weight. She is not ill-appearing. HENT: Head: Normocephalic and atraumatic. Mouth/Throat: Mouth: Mucous membranes are moist. Eyes: Extraocular Movements: Extraocular movements intact. Conjunctiva/sclera: Conjunctivae normal. Pupils: Pupils are equal, round, and reactive to light. Cardiovascular: Rate and Rhythm: Normal rate and regular rhythm. Pulses: Normal pulses. Heart sounds: Normal heart sounds. Pulmonary: Effort: Pulmonary effort is normal. Breath sounds: Normal breath sounds. Abdominal: General: There is no distension. Palpations: Abdomen is soft. Tenderness: There is abdominal tenderness (RLQ, LLQ, Periumbilical). There is no guarding or rebound. Hernia: A hernia (Umbilical hernia, reducible) is present. Comments: Protuberant abdomen, hypoactive bowel sounds, negative Spear Sign Musculoskeletal: General: No swelling or tenderness. Normal range of motion. Comments: Chronic right dropfoot Skin: General: Skin is warm and dry. Capillary Refill: Capillary refill takes less than 2 seconds. Coloration: Skin is not jaundiced. Findings: No bruising or erythema. Neurological: Mental Status: She is alert. Cranial Nerves: No cranial nerve deficit. Sensory: No sensory deficit. Motor: No weakness. Comments: AAOx2 (Name and Location) Psychiatric: Mood and Affect: Mood normal. Behavior: Behavior normal. Relevant Results Admission on 09/17/2024 Component Date Value Ref Range Status Sodium 09/17/2024 136 136 - 145 mmol/L Final Potassium 09/17/2024 4.2 3.5 - 5.1 mmol/L Final Chloride 09/17/2024 102 98 - 107 mmol/L Final CO2 09/17/2024 24 21 - 31 mmol/L Final Anion Gap 09/17/2024 14 7 - 20 mmol/L Final BUN 09/17/2024 16 7 - 25 mg/dL Final Creatinine 09/17/2024 0.68 0.60 - 1.20 mg/dL Final BUN/Creatinine Ratio 09/17/2024 23.5 Final Glucose 09/17/2024 128 (H) 7 (more content not included)... 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 Per facility report, [facility] did not have a surgery bed available, so pt will be getting surgery at [facility]. Pt was diagnosed with cholelithiasis and finished antibiotics - Rocephin and Flagyll at facility. Per facility report, WBC negative, CT head negative, and CT abd shows cholecystitis. Pt has abdominal pain and hx of confusion and UTIs. Per [facility] report, pt is typically A&Ox4. Upon arrival to ER, pt is A&Ox2 - alert to self and time only. Per [facility] report, pt's daughter states pt cannot have morphine or narcotics d/t causing nausea and only takes Tylenol for pain. Pt denies SOB and CP. Normal [facility] EDPROVon 09-17-2024 EDPROV History of Present Illness Chief Complaint Patient presents with Abdominal Pain Transferred from [facility]; will be getting surgery at [facility] Altered Mental Status Initial evaluation completed by Dr. Vasquez at 7:20 PM. Saeed Sarabia is a 83 y.o. female presenting to the ED with c/o Abdominal Pain, Altered Mental Status. Patient reports via EMS and is a transfer from [facility]. Patient reports that she has gallstones and is scheduled to have surgery. Patient reportedly has had decreased appetite and nausea. According to the facility, patient has has a neurologic decline, and is recovering from a UTI. Patient states that she has a headache, abdominal pain and nausea. Patient denies vomiting. Patient has an additional medical history of DM, HLD, HTN, and gallstones. Patient is currently on Eliquis. 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 used: No Altered Mental Status Associated symptoms: abdominal pain, headaches and nausea Associated symptoms: no vomiting Abdominal Pain Associated symptoms: nausea Associated symptoms: no vomiting No data recorded History Past Medical History: Diagnosis Date Atrial fibrillation ([facility]) CHF (congestive heart failure) ([facility]/HCC) Coronary artery disease Diabetes mellitus ([facility]) Heart valve disease Hyperlipidemia Hypertension Past Surgical History: Procedure Laterality Date BACK SURGERY CARDIAC CATHETERIZATION CARDIOVERSION Family History Problem Relation Name Age of Onset Heart attack Mother Coronary artery disease Mother Heart attack Father Coronary artery disease Father Multiple sclerosis Sister Social History Tobacco Use Smoking status: Never Smokeless tobacco: Never Substance Use Topics Alcohol use: Not Currently Drug use: Not on file Review of Systems Review of Systems Constitutional: Positive for appetite change (decreased). Gastrointestinal: Positive for abdominal pain and nausea. Negative for vomiting. Neurological: Positive for headaches. Altered Mental Status Physical Exam ED Triage Vitals [09/17/241924] Temp Heart Rate Resp BP 36.8 ???C (98.3 ???F) 90 16 160/76 SpO2 Temp Source Heart Rate Source Patient Position 94 % Oral Monitor Sitting BP Location FiO2 (%) Left arm -- Physical Exam Vitals reviewed. Constitutional: General: She is not in acute distress. Appearance: Normal appearance. She is not ill-appearing or toxic-appearing. HENT: Head: Normocephalic and atraumatic. Mouth/Throat: Mouth: Mucous membranes are moist. Eyes: Conjunctiva/sclera: Conjunctivae normal. Cardiovascular: Rate and Rhythm: Normal rate and regular rhythm. Heart sounds: No murmur heard. Pulmonary: Effort: Pulmonary effort is normal. No respiratory distress. Breath sounds: Normal breath sounds. No stridor. Abdominal: General: There is no distension. Palpations: Abdomen is soft. Tenderness: There is abdominal tenderness (mild, diffuse). Musculoskeletal: General: No swelling. Cervical back: Neck supple. Right lower leg: No edema. Left lower leg: No edema. Comments: Normal movement Skin: General: Skin is warm and dry. Capillary Refill: Capillary refill takes less than 2 seconds. Findings: No rash. Neurological: General: No focal deficit present. Mental Status: She is alert. She is confused. Motor: Weakness (generalized) present. Psychiatric: Mood and Affect: Mood normal. Behavior: Behavior normal. Procedures ED Course & MDM Diagnoses as of 09/17/241942 Cholecystitis Medical Decision Making Gen surg plans hida scan for further eval in am Hospitalist contacted for admission Amount and/or Complexity of Data Reviewed External Data Reviewed: labs and radiology. Labs: ordered. Decision-making details documented in ED Course. Risk Decision regarding hospitalization. Seth Man scribe, documented on behalf of Dr. Vasquez. Chief complaint Abdominal Pain, Altered Mental Status Plan of Care: UA, CBC, Troponin, Lipase, CMP Attestation: Provider Statement BLAYNE: Provider Statement 2nd Scribe. By electronically signing this emergency patient record, the Emergency Physician/PIECE GOODS CLERK/PA-C attests that all entries made into the electronic medical record by the scribe prior to the Physician/PIECE GOODS CLERK/PA-C signature reflect an accurate accounting of the evaluation and care rendered by that Emergency Physician/PIECE GOODS CLERK/PA-C. The Emergency Physician/PIECE GOODS CLERK/PA-C assumes full responsibility for those entries. The Emergency Physician/PIECE GOODS CLERK/PA-C also attests that any patient testing or treatment that was instituted by nursing staff. Sanjeev Vasquez MD 09/17/24 2130 Normal [facility] LIPASEon 09-17-2024 LIPASE (U/L) IN SER/PLAS 27 U/L Normal 11-82 [facility] Comment on above: Performed By: #### L [id number] ####[facility] ([facility])[address] [place] [address] MAGNESIUMon 09-17-2024 Magnesium [Mass/Vol] 1.5 mg/dL Low 1.9-2.7 [facility] Comment on above: Performed By: #### L [id number] ####[facility] ([facility])[address] [place] [address] NM HIDA WO EJECTION FRACTION on 09-17-2024 NM HIDA WO EJECTION FRACTION [facility] HIDA CLINICAL HISTORY: 83-year-old with concern for cholecystitis. Cholelithiasis reported on prior imaging. COMPARISON: None. TECHNIQUE: Following the uneventful intravenous administration of 8.1 mCi Tc-99m mebrofenin, dynamic images of the right upper quadrant were acquired in the anterior projection for 60 seconds per frame for 1 hour. COMMENTS: There is brisk tracer uptake by the liver, Radioactive bile could be seen entering the bowel in the first 60 minutes. The gallbladder was visualized. IMPRESSION: 1. No evidence of acute cholecystitis. Electronically signed: Felicita Leal. Normal [facility] PHOSPHORUSon 09-17-2024 Magnesium [Mass/Vol] 3.3 mg/dL Normal 2.5-5.0 [facility] Comment on above: Performed By: #### L [id number] ####[facility] ([facility])[address] [place] [address] POCT GLUCOSE METER UNSOLICIT ED RESULTSon 09-17-2024 Glucose [Mass/Vol] 129 mg/dL High 70-105 [facility] Comment on above: Order Comment: Waive d Testing in the ED is performed under the ED CLIA certificate #[id number]. Result Comment: tloy d Performed By: #### L [id number] #### [facility] RESPIRATORY THERAPY [address] [place] [address] [place] TROPONIN Ion 09-17-2024 Troponin I.cardiac [Mass/Vol] 0.01 ng/mL Normal 0.00-0.04 [facility] Comment on above: Performed By: #### L [id number] #### [facility] ([facility]) [address] [place] [address] URINALYSIS MICROSCOPIC WITH REFLEX CULTUREon 09-17-2024 MUCUS (#/LPF) IN URINE SEDIMENT Occasional Normal None Seen, Occasional, Few [facility] Comment on above: Performed By: #### L [id number] ####[facility] ([facility])[address] [place] [address] RBC (#/HPF) IN URINE SEDIMENT 0-2 Normal None Seen, 0-2 [facility] Comment on above: Performed By: #### L [id number] ####[facility] ([facility])[address] [place] [address] SQUAMOUS EPITHELIAL CELLS (#/LPF) IN URINE SEDIMENT Few Normal None Seen, Occasional, Few [facility] Comment on above: Performed By: #### L [id number] ####[facility] ([facility])[address] [place] [address] WBC (LEUKOCYTE) (#/HPF) IN URINE SEDIMENT 3-5 Abnormal None Seen, 0-2 [facility] Comment on above: Performed By: #### L [id number] ####[facility] ([facility])[address] [place] [address] URINALYSIS WITH REFLEX CULTU REon 09-17-2024 BILIRUBIN, TOTAL PRESENCE IN URINE Negative Normal Negative [facility] Comment on above: Performed By: #### L [id number] #### [facility] ([facility]) [address] [place] [address] Clarity (U) Clear Normal Clear [facility] Comment on above: Performed By: #### L [id number] #### [facility] ([facility]) [address] [place] [address] Color (U) Colorless Normal Colorless, Yellow, Light-Yello w [facility] Comment on above: Performed By: #### L [id number] #### [facility] ([facility]) [address] [place] [address] GLUCOSE (MG/DL) IN URINE Normal Normal Normal [facility] Comment on above: Performed By: #### L [id number] #### [facility] ([facility]) [address] [place] [address] HEMOGLOBIN PRESENCE IN URINE Trace Abnormal Negative [facility] Comment on above: Performed By: #### L [id number] #### [facility] ([facility]) [address] [place] [address] Ketones Ql (U) Trace Abnormal Negative [facility] Comment on above: Performed By: #### L [id number] #### [facility] ([facility]) [address] [place] [address] LEUKOCYTE ESTERASE PRESENCE IN URINE BY TEST STRIP Negative Normal Negative [facility] Comment on above: Performed By: #### L [id number] #### [facility] ([facility]) [address] [place] [address] NITRITE PRESENCE IN URINE Negative Normal Negative [facility] Comment on above: Performed By: #### L [id number] #### [facility] ([facility]) [address] [place] [address] pH (U) 5.0 [pH] Normal 5.0-8.0 [facility] Comment on above: Performed By: #### L [id number] #### [facility] ([facility]) [address] [place] [address] Protein (U) [Mass/Vol] Negative Normal Negative [facility] Comment on above: Performed By: #### L [id number] #### [facility] ([facility]) [address] [place] [address] Specific gravity (U) [Rel density] 1.026 Normal 1.010-1.030 [facility] Comment on above: Performed By: #### L [id number] #### [facility] ([facility]) [address] [place] [address] UROBILINOGEN (MG/DL) IN URINE Normal Normal Normal [facility] Comment on above: Performed By: #### L [id number] #### [facility] ([facility]) [address] [place] [address] VENOUS BLOOD GAS WITH IONIZE D CALCIUMon 09-17-2024 Base excess Calc (BldV) [Moles/Vol] -4.9000 mmol/L Normal [facility] Comment on above: Performed By: #### L [id number] #### [facility] RESPIRATORY THERAPY [address] [place] [address] [facility] CALCIUM IONIZED (MMOL/L) IN BLOOD 1.04 mmol/L Low 1.15-1.33 [facility] Comment on above: Performed By: #### L [id number] #### [facility] RESPIRATORY THERAPY [address] [place] [address] [facility] CO2 (BldV) [Partial pressure] 26 mm[Hg] Low 40-50 [facility] Comment on above: Performed By: #### L [id number] #### [facility] RESPIRATORY THERAPY [address] [place] [address] [facility] HCO3 (Bld) [Moles/Vol] 17.7 mmol/L Normal [facility] Comment on above: Performed By: #### L [id number] #### [facility] RESPIRATORY THERAPY [address] [place] [address] [place] Oxygen (BldV) [Partial pressure] 147 mm[Hg] High 35-45 [facility] Comment on above: Performed By: #### L [id number] #### [facility] RESPIRATORY THERAPY [address] [place] [address] [place] OXYGEN SATURATION (%) IN VENOUS BLOOD 99.8 % High 65.0-75.0 [facility] Comment on above: Performed By: #### L [id number] #### [facility] RESPIRATORY THERAPY [address] [place] [address] [place] PH OF VENOUS BLOOD 7.44 High 7.31-7.41 [facility] Comment on above: Performed By: #### L [id number] #### [facility] RESPIRATORY THERAPY [address] [place] [address] [facility] ALL BASIC METABOLIC PANELon 08-29-2024 Anion gap [Moles/Vol] 15.8 mmol/L NO [facility] Calcium [Mass/Vol] 9.8 mg/dL 8.5 - 10. 1 mg/dL [facility] Chloride [Moles/Vol] 103 mmol/L 98 - 10 7 mmol/L [facility] CO2 [Moles/Vol] 26.4 mmol/L 21.0 - 32.0 mmol/L [facility] Creatinine [Mass/Vol] 1.07 mg/dL High 0.55 - 1.02 mg/dL [facility] GFR/1.73 sq M.predicted CKD-EPI (S/P/Bld) [Vol rate/Area] 59 Low >=60 mL/min/1.73 m 2 [facility] Glucose [Mass/Vol] 266 mg/dL High 74 - 106 mg/dL [facility] Interpretation and review of laboratory results Abnormal [facility] Potassium [Moles/Vol] 4.2 mmol/L 3.5 - 5.1 mmol/L [facility] Sodium [Moles/Vol] 141 mmol/L 136 - 145 mmol/L [facility] TBH EGFR-NON AF AUSTRALIAN 49 Low >=6 0 mL/min/1.73 m 2 [facility] Urea nitrogen [Mass/Vol] 21 mg/dL High 7.0 - 18.0 mg/dL [facility] Urea nitrogen/Creatinine [Mass ratio] 19.6 mg/mg [facility] ALL BASIC METABOLIC PANELon 08-20-2024 Anion gap [Moles/Vol] 15.7 mmol/L NO [facility] Calcium [Mass/Vol] 9.5 mg/dL 8.5 - 10. 1 mg/dL [facility] Chloride [Moles/Vol] 108 mmol/L High 98 - 10 7 mmol/L [facility] CO2 [Moles/Vol] 27.8 mmol/L 21.0 - 32.0 mmol/L [facility] Creatinine [Mass/Vol] 0.85 mg/dL 0.55 - 1.02 mg/dL [facility] GFR/1.73 sq M.predicted CKD-EPI (S/P/Bld) [Vol rate/Area] >60 >=60 mL/min/1.73 m 2 [facility] Glucose [Mass/Vol] 118 mg/dL High 74 - 106 mg/dL [facility] Interpretation and review of laboratory results Abnormal [facility] Potassium [Moles/Vol] 4.5 mmol/L 3.5 - 5.1 mmol/L [facility] Sodium [Moles/Vol] 147 mmol/L High 136 - 145 mmol/L [facility] EGFR-NON AF AUSTRALIAN >60 >=6 0 mL/min/1.73 m 2 [facility] Urea nitrogen [Mass/Vol] 14 mg/dL 7.0 - 18.0 mg/dL [facility] Urea nitrogen/Creatinine [Mass ratio] 16.5 mg/mg [facility] ALL CBC WITH AUTO DIFFon BASOPHILS ABSOLUTE AUTO 0 N [facility] Basophils/100 WBC (Bld) 0.3 % 0.2 - 2.0 % [facility] Eosinophils/100 WBC (Bld) 0.7 % Low 0.9 - 7.0 % [facility] Erythrocyte distribution width (RBC) [Ratio] 13.6 % 11.0 - 15.0 % [facility] Hematocrit (Bld) [Volume fraction] 40 % 36.0 - 48.0 % [facility] Hemoglobin (Bld) [Mass/Vol] 12.5 g/dL 12.0 - 16.0 g/dL [facility] IMMATURE GRANULOCYTES ABS AUTO 0.01 [facility] Immature granulocytes/100 WBC (Bld) 0.1 % 0.0 - 0.5 % [facility] Interpretation and review of laboratory results Abnormal [facility] LYMPHOCYTES ABSOLUTE AUTO 2.1 [facility] Lymphocytes/100 WBC (Bld) 31.5 % 20.5 - 60.0 % [facility] MCH (RBC) [Entitic mass] 30 pg 26. 7 - 34.0 pg [facility] MCHC (RBC) [Mass/Vol] 31.3 g/dL 29.9 - 35.2 g/dL [facility] MCV (RBC) [Entitic vol] 95.9 fL 81.0 - 99.0 fL [facility] MONOCYTES ABSOLUTE AUTO 0.6 N [facility] Monocytes/100 WBC (Bld) 8.5 % 1.7 - 12.0 % [facility] NEUTROPHILS ABSOLUTE AUTO 3.9 [facility] Neutrophils/100 WBC (Bld) 58.9 % 43.0 - 75.0 % [facility] Platelet mean volume (Bld) [Entitic vol] 9.9 fL 9.5 - 13.[address] [facility] EO # 0.1 [facility] PLT [address] [facility] RBC 4.[address] [facility] WBC 6.7 [facility] HbA1c (Bld) [Mass fraction]o n 08-20-2024 Interpretation and review of laboratory results Normal [facility] Laboratory - Hematology and Cell countson 08-20-2024 HbA1c (Bld) [Mass fraction] 6/1% [facility] 36on 02-19-2024 36 Regarding echo from 02/15/2024: MD Cara Bansal MA Her echo is within normal limits. Patient informed. Normal [facility] Office Visiton 02-02-2024 Follow-up visit [id number] Saeed Sarabia 1940 F Date Provider Department Center 02/02/2024 JOSE SR [facility] Family History Problem Relation Age of Onset Heart attack Mother Coronary artery disease Mother Heart attack Father Coronary artery disease Father Multiple sclerosis Sister Family Status - Relation Status Age at Mother Father Sister Level of Service:00198 [place] OFFICE/OUTPATIENT ESTABLISHED MOD MDM 30 MIN Reason for Visit and Comments: Follow-up [474547] - 6 months Normal [facility] FREE T3on 08-15-2022 FREE T3 2.11 pg/mlL Critically low 2.18-3.98 [facility] Comment on above: Performed By: #### F T3, TSH, CMP, LIPID ####[facility] [address] [place], [place] [address]WuDr. Adilene Koo FREE T4on 08-15-2022 Free T4 [Mass/Vol] 1.13 ng/dL Normal 0.76-1.46 [facility] Comment on above: Performed By: #### F T4 #### [facility] [address] [place], [place] [address] Dr. Adilene Koo GLYCOHEMOGLOBIN A1Con 2021 ADA RECOMMENDATION SEE BELOW Normal [facility] Comment on above: Result Comment: ADA RECOMMENDED LIMIT 4.0 - 6.0 ADA THERAPEUTIC TARGET < 7.0 ACTION SUGGESTED > 7.0 Performed By: #### A 1C #### [facility] [address] [place] [address] [address] Adilene Koo Glucose [Mass/Vol] 137 mg/dL Normal [facility] Comment on above: Performed By: #### A 1C #### [facility] [address] [place] [id number] Adilene Koo HbA1c (Bld) [Mass fraction] 6.4 % Critically high 4.5-6.2 [facility] Comment on above: Performed By: #### A 1C #### [facility] [address] [place] [place] [address] [address] Adilene Koo LIPID PROFILEon 08-15-2022 CHOL-HDL RATIO NORM SEE BELOW Normal [facility] Comment on above: Result Comment: 3.3 - 4.4 LOW RISK 4.4 - 7.1 AVERAGE RISK 7.1 - 11.0 MODERATE RISK >11.0 HIGH RISK Performed By: #### F T3, TSH, CMP, LIPID ####[facility] [address] [place] [id number] Koo Cholesterol [Mass/Vol] 127 mg/dL Normal <=200 [facility] Comment on above: Performed By: #### F T3, TSH, CMP, LIPID ####[facility] [address] [place] [id number] Koo Cholesterol in HDL [Mass/Vol] 48 mg/dL Normal 40-60 [facility] Comment on above: Performed By: #### F T3, TSH, CMP, LIPID ####[facility] [address] [place] [id number] Koo Cholesterol in LDL [Mass/Vol] 60.2 mg/dL Normal [facility] Comment on above: Performed By: #### F T3, TSH, CMP, LIPID ####[facility] [address] [place] [id number] Koo Cholesterol.total/Choles terol in HDL [Mass ratio] 2.6 {ratio} Normal [facility] Comment on above: Performed By: #### F T3, TSH, CMP, LIPID ####[facility] [address] [place] [id number] Koo HDL NORMAL > or = 60 mg/dl - LO W CARDIOVASCULAR RISK <40 mg/dl - HIGH CARDIOVASCULAR RISK Normal [facility] Comment on above: Performed By: #### F T3, TSH, CMP, LIPID ####[facility] [address] [place] [id number] Koo LDL CALC NORMAL SEE BELOW Normal [facility] Comment on above: Result Comment: <100 mg/dl OPTIMAL 100 - 129 mg/dl NEAR OR ABOVE OPTIMAL 130 - 159 mg/dl BORDERLINE HIGH 160 - 189 mg/dl HIGH >190 mg/dl VERY HIGH Performed By: #### F T3, TSH, CMP, LIPID ####[facility] [address] [place] [address]DrKen Koo Triglyceride [Mass/Vol] 94 mg/dL Normal <=150 [facility] Comment on above: Performed By: #### F T3, TSH, CMP, LIPID ####[facility] [address] [place] [address]DrKen Koo VLDL CALC 18.8 mg/dL Normal [facility] Comment on above: Performed By: #### F T3, TSH, CMP, LIPID ####[facility] [address] [place] [address]Dr. Adilene Koo MICROALBUMIN, RAND URon 11-0 mALB 1.6 mg/L Normal <=30.0 [facility] Comment on above: Performed By: #### M ALBR #### [facility] [address] [place] [address] [address] Adilene Koo PROF 14(COMP METB)on 022 Albumin [Mass/Vol] 3.2 g/dL Critically low 3.4-5.0 [facility] Comment on above: Performed By: #### F T3, TSH, CMP, LIPID ####[facility] [address] [place] [id number] Koo Albumin/Globulin [Mass ratio] 0.9 {ratio} Normal [facility] Comment on above: Performed By: #### F T3, TSH, CMP, LIPID ####[facility] [address] [place] [address]Dr. Adilene Koo ALP [Catalytic activity/Vol] 59 U/L Normal 46-116 [facility] Comment on above: Performed By: #### F T3, TSH, CMP, LIPID ####[facility] [address] [place] [id number]. Adilene Koo ALT [Catalytic activity/Vol] 19 U/L Normal 14-59 [facility] Comment on above: Performed By: #### F T3, TSH, CMP, LIPID ####[facility] [address] [place] [id number]. Adilene Koo Anion gap [Moles/Vol] 10.8 mmol/L Normal [facility] Comment on above: Performed By: #### F T3, TSH, CMP, LIPID ####[facility] [address] [place] [address]Dr. Adilene Koo AST [Catalytic activity/Vol] 18 U/L Normal 15-37 [facility] Comment on above: Performed By: #### F T3, TSH, CMP, LIPID ####[facility] [address] [place] [address]Dr. Adilene Koo Bilirubin [Mass/Vol] 0.4 mg/dL Normal 0.2-1.0 [facility] Comment on above: Performed By: #### F T3, TSH, CMP, LIPID ####[facility] [address] [place] [id number]. Adilene Koo Calcium [Mass/Vol] 9.4 mg/dL Normal 8.5-10.1 [facility] Comment on above: Performed By: #### F T3, TSH, CMP, LIPID ####[facility] [address] [place] [address]Dr. Adilene Koo Chloride [Moles/Vol] 106 mmol/L Normal 98-107 [facility] Comment on above: Performed By: #### F T3, TSH, CMP, LIPID ####[facility] [address] [place] [address]Dr. Adilene Koo CO2 [Moles/Vol] 28.9 mmol/L Normal 21.0-32.0 [facility] Comment on above: Performed By: #### F T3, TSH, CMP, LIPID ####[facility] [address] [place] [address]Dr. Adilene Koo Creatinine [Mass/Vol] 0.73 mg/dL Normal 0.55-1.02 [facility] Comment on above: Performed By: #### F T3, TSH, CMP, LIPID ####[facility] [address] [place] [address]Dr. Adilene Hayes EGFR-AF AUSTRALIAN >60 Normal >=60 [facility] Comment on above: Performed By: #### F T3, TSH, CMP, LIPID ####[facility] [address] [place] [address]Dr. Adilene Koo EGFR-NON AF AUSTRALIAN >60 Normal >=60 [facility] Comment on above: Performed By: #### F T3, TSH, CMP, LIPID ####[facility] [address] [place] [address]Dr. Adilene Koo Globulin (S) [Mass/Vol] 3.6 g/dL Normal [facility] Comment on above: Performed By: #### F T3, TSH, CMP, LIPID ####[facility] [address] [place] [address]Dr. Adilene Koo Glucose [Mass/Vol] 94 mg/dL Normal 74-106 [facility] Comment on above: Performed By: #### F T3, TSH, CMP, LIPID ####[facility] [address] [place] [address]Dr. Adilene Koo Potassium [Moles/Vol] 4.7 mmol/L Normal 3.5-5.1 [facility] Comment on above: Performed By: #### F T3, TSH, CMP, LIPID ####[facility] [address] [place] [address]Dr. Adilene Koo Protein [Mass/Vol] 6.8 g/dL Normal 6.4-8.2 [facility] Comment on above: Performed By: #### F T3, TSH, CMP, LIPID ####[facility] [address] [place] [id number]. Adilene Koo Sodium [Moles/Vol] 141 mmol/L Normal 136-145 [facility] Comment on above: Performed By: #### F T3, TSH, CMP, LIPID ####[facility] [address] [place] [address]Dr. Adilene Koo Urea nitrogen [Mass/Vol] 15.0 mg/dL Normal 7.0-18.0 [facility] Comment on above: Performed By: #### F T3, TSH, CMP, LIPID ####[facility] [address] [place] [address]Dr. Adilene Koo Urea nitrogen/Creatinine [Mass ratio] 20.5 mg/mg Normal [facility] Comment on above: Performed By: #### F T3, TSH, CMP, LIPID ####[facility] [address] [place] [address]Dr. Adilene Koo TSHon 08-15-2022 TSH 0.219 uIU/mL Critically low 0.358-3.740 [facility] Comment on above: Performed By: #### F T3, TSH, CMP, LIPID ####[facility] [address] [place] [address]Dr. Adilene Koo UA RANDOM W/MICROSCOPICon BACTERIA NONE SEEN Normal NONE SEEN [facility] Comment on above: Performed By: #### U AMIC #### [facility] [address] [place] [address] [address] Adilene Koo Bilirubin Ql (U) Negative Normal NEGATIVE [facility] Comment on above: Performed By: #### U AMIC #### [facility] [address] [place] [address] [address] Adilene Koo CAST NONE SEEN Normal NONE SEEN [facility] Comment on above: Performed By: #### U AMIC #### [facility] [address] [place] [address] [address] Adilene Koo Clarity (U) CLEAR Normal CLEAR [facility] Comment on above: Performed By: #### U AMIC #### [facility] [address] [place] [address] [address] Adilene Koo Color (U) LT. YELLOW Normal YELLOW [facility] Comment on above: Performed By: #### U AMIC #### [facility] [address] [place] [address] Dr. Adilene Koo Crystals LM Nom (Urine sed) NONE SEEN Normal NONE SEEN [facility] Comment on above: Performed By: #### U AMIC #### [facility] [address] [place] [address] Dr. Adilene Koo Epithelial cells LM Ql (Urine sed) RARE Normal NONE SEEN /RARE [facility] Comment on above: Performed By: #### U AMIC #### [facility] [address] [place] [address] Dr. Adilene Koo Glucose Ql (U) Negative Normal NEGATIVE [facility] Comment on above: Performed By: #### U AMIC #### [facility] [address] [place] [address] Dr. Adilene Koo Hemoglobin Ql (U) Negative Normal NEGATIVE [facility] Comment on above: Performed By: #### U AMIC #### [facility] [address] [place] [address] Dr. Adilene Koo Ketones Ql (U) Negative Normal NEGATIVE [facility] Comment on above: Performed By: #### U AMIC #### [facility] [address] [place] [address] Dr. Adilene Koo LEUKOCYTES Negative Normal NEGATIVE [facility] Comment on above: Performed By: #### U AMIC #### [facility] [address] [place] [address] Dr. Adilene Koo MUCOUS NONE SEEN Normal NONE SEEN [facility] Comment on above: Performed By: #### U AMIC #### [facility] [address] [place] [address] Dr. Adilene Koo Nitrite Ql (U) Negative Normal NEGATIVE [facility] Comment on above: Performed By: #### U AMIC #### [facility] [address] [place] [address] Dr. Adilene Koo pH (U) 6.0 [pH] Normal 5-9 [facility] Comment on above: Performed By: #### U AMIC #### [facility] [address] [place] [address] [address] Adilene Koo RBC 0-2 Normal 0-2 [facility] Comment on above: Performed By: #### U AMIC #### [facility] [address] [place] [address] [address] Adilene Koo SPEC GRAVITY 1.020 Normal 1.005-<=1.0 25 [facility] Comment on above: Performed By: #### U AMIC #### [facility] [address] [place] [address] [address] Adilene Koo UA PROTEIN Negative Normal NEGATIVE/ TRACE [facility] Comment on above: Performed By: #### U AMIC #### [facility] [address] [place] [address] [address] Adilene Koo Urobilinogen Qn (U) 0.2 {Juan'U}/dL Normal 0.2 - 1. 0 [facility] Comment on above: Performed By: #### U AMIC #### [facility] [address] [address] [address] Adilene Koo WBC 0-2 Abnormal NONE SEEN [facility] Comment on above: Performed By: #### U AMIC #### [facility] [address] [address] [address] Adilene Koo Glucose Glucometer (BldC) [M ass/Vol]Ordered By: Kingston Gao on 04-15-2022 Glucose [Mass/Vol] 112 mg/dL [facility] Comment on above: Random Glucose Refer ence Range is dependent on time and content of last meal. Glucose of more than 200 mg/dL in a nonstressed, ambulatory subject supports the diagnosis of Diabetes Mellitus. Glucose Poct Glucometerson 0 04-15-2022 Commemt1 Glu2: Cleaned Meter Normal [facility] Comment on above: Result Comment: PERF ORMED BY: [facility] [address] [place] [address] PATHOLOGIST ATHLETIC TRAINER JIANLAN SUN M.D. Performed By: #### G INOCENTE #### Point of Care testing , Glucose [Mass/Vol] 112 mg/dL Normal [facility] Comment on above: Result Comment: [place] Glucose Reference Range is dependent on time and content of last meal. Glucose of more than 200 mg/dL in a nonstressed, ambulatory subject supports the diagnosis of Diabetes Mellitus. Performed By: #### G LUMARKUS #### Point of Care testing , No Panel InformationOrdered By: Kingston Gao on 04-15-2022 Bedside Glucose Comment Glu2: cleaned meter [facility] Glucose Poct Glucometerson 0 04-14-2022 Commemt1 Glu2: Cleaned Meter [facility] Comment on above: Result Comment: PERF ORMED BY: [place] [address] PATHOLOGIST ATHLETIC TRAINER GUIDO ELIZALDE M.D. Performed By: #### C BC, PT, PTT, CMP #### [facility] [address] [place] [address] Glucose [Mass/Vol] 116 mg/dL Normal [facility] Comment on above: Result Comment: [place] Glucose Reference Range is dependent on time and content of last meal. Glucose of more than 200 mg/dL in a nonstressed, ambulatory subject supports the diagnosis of Diabetes Mellitus. Performed By: #### C BC, PT, PTT, CMP #### [facility] [address] [place] [address] Commemt1 Glu2: Cleaned Meter [facility] Comment on above: Result Comment: PERF ORMED BY: [facility] [address] [place] [address] PATHOLOGIST ATHLETIC TRAINER GUIDO ELIZALDE M.D. Performed By: #### C BC, PT, PTT, CMP #### [facility] [address] [place] [address] Glucose [Mass/Vol] 107 mg/dL Normal [facility] Comment on above: Result Comment: [place] Glucose Reference Range is dependent on time and content of last meal. Glucose of more than 200 mg/dL in a nonstressed, ambulatory subject supports the diagnosis of Diabetes Mellitus. Performed By: #### C BC, PT, PTT, CMP #### [facility] [address] [id number] [place] Glucose Poct Glucometerson 0 04-13-2022 Commemt1 Glu2: Cleaned Meter [facility] Comment on above: Result Comment: PERF ORMED BY: [address] [place] [address] PATHOLOGIST ATHLETIC TRAINER GUIDO ELIZALDE M.D. Performed By: #### G LULS #### Point of Care testing , Glucose [Mass/Vol] 83 mg/dL Normal [facility] Comment on above: Result Comment: [place] Glucose Reference Range is dependent on time and content of last meal. Glucose of more than 200 mg/dL in a nonstressed, ambulatory subject supports the diagnosis of Diabetes Mellitus. Performed By: #### G LULS #### Point of Care testing , Glucose [Mass/Vol] 76 mg/dL Normal [facility] Comment on above: Result Comment: [place] Glucose Reference Range is dependent on time and content of last meal. Glucose of more than 200 mg/dL in a nonstressed, ambulatory subject supports the diagnosis of Diabetes Mellitus. PERFORMED BY: [place] [address] PATHOLOGIST ATHLETIC TRAINER GUIDO ELIZALDE M.D. Performed By: #### C BC, PT, PTT, CMP #### [facility] [address] [place], [place] [id number] [facility] Glucose Poct Glucometerson 0 04-12-2022 Commemt1 Glu2: Cleaned Meter [facility] Comment on above: Result Comment: PERF ORMED BY: [address] [place] [address] PATHOLOGIST ATHLETIC TRAINER GUIDO ELIZALDE M.D. Performed By: #### C BC, PT, PTT, CMP #### [facility] [address] [place] [address] [place] Glucose [Mass/Vol] 238 mg/dL Normal [facility] Comment on above: Result Comment: [place] Glucose Reference Range is dependent on time and content of last meal. Glucose of more than 200 mg/dL in a nonstressed, ambulatory subject supports the diagnosis of Diabetes Mellitus. Performed By: #### C BC, PT, PTT, CMP #### [address] Glucose [Mass/Vol] 86 mg/dL Normal [facility] Comment on above: Result Comment: [place] Glucose Reference Range is dependent on time and content of last meal. Glucose of more than 200 mg/dL in a nonstressed, ambulatory subject supports the diagnosis of Diabetes Mellitus. PERFORMED BY: [place] [address] PATHOLOGIST ATHLETIC TRAINER GUIDO ELIZALDE M.D. Performed By: #### G LULS #### Point of Care testing , Glucose Poct Glucometerson 0 04-11-2022 Commemt1 Glu2: Cleaned Meter Normal [facility] Comment on above: Result Comment: PERF ORMED BY: [place] [address] PATHOLOGIST ATHLETIC TRAINER GUIDO ELIZALDE M.D. Performed By: #### G LULS #### Point of Care testing , Glucose [Mass/Vol] 123 mg/dL Normal [facility] Comment on above: Result Comment: [place] Glucose Reference Range is dependent on time and content of last meal. Glucose of more than 200 mg/dL in a nonstressed, ambulatory subject supports the diagnosis of Diabetes Mellitus. Performed By: #### G LULS #### Point of Care testing , Glucose [Mass/Vol] 107 mg/dL Normal [facility] Comment on above: Result Comment: [place] Glucose Reference Range is dependent on time and content of last meal. Glucose of more than 200 mg/dL in a nonstressed, ambulatory subject supports the diagnosis of Diabetes Mellitus. PERFORMED BY: [place] [address] PATHOLOGIST ATHLETIC TRAINER GUIDO ELIZALDE M.D. Performed By: #### G LULS #### Point of Care testing , Glucose Poct Glucometerson 0 7-03-2022 Glucose [Mass/Vol] 100 mg/dL Normal [facility] Comment on above: Result Comment: [facility] Glucose Reference Range is dependent on time and content of last meal. Glucose of more than 200 mg/dL in a nonstressed, ambulatory subject supports the diagnosis of Diabetes Mellitus. PERFORMED BY: [place] [address] PATHOLOGIST ATHLETIC TRAINER GUIDO ELIZALDE M.D. Performed By: #### G LULS #### Point of Care testing , Glucose [Mass/Vol] 99 mg/dL Normal [facility] Comment on above: Result Comment: [facility] Glucose Reference Range is dependent on time and content of last meal. Glucose of more than 200 mg/dL in a nonstressed, ambulatory subject supports the diagnosis of Diabetes Mellitus. PERFORMED BY: [place] [address] PATHOLOGIST ATHLETIC TRAINER GUIDO ELIZALDE M.D. Performed By: #### C BC, PT, PTT, CMP #### [place] [address] [place] A1C with Estimated Average G sherleyn 04-09-2022 Glucose [Mass/Vol] 163 mg/dL Normal [facility] Comment on above: Result Comment: PERF ORMED BY: [place] [address] PATHOLOGIST ATHLETIC TRAINER GUIDO ELIZALDE M.D. Performed By: #### G LULS #### Point of Care testing , HbA1c (Bld) [Mass fraction] 7.3 % High 4.3-5.6 [facility] Comment on above: Result Comment: Incr eased risk for diabetes: 5.7 - 6.4 diabetes: >6.4 glycemic control for adults with diabetes: <7.0 Performed By: #### G LULS #### Point of Care testing , Cholesterol [Mass/volume] in Serum or PlasmaOrdered By: Justyn Spann on 04-09-2022 Cholesterol [Mass/Vol] 128 mg/dL 140-200 [facility] Comment on above: Chol less than 200 m g/dl low risk Chol 201-239 mg/dl borderline risk Chol 240 mg/dl and greater high risk Cholesterol in LDL Calc [Mas s/Vol]Ordered By: Justyn Spann on 04-09-2022 Cholesterol in LDL [Mass/Vol] 68 mg/dL 0-100 [facility] Comment on above: LDL ATP III CLASSIFI CATION LDL less than 100 mg/dL Optimal LDL 100-129 mg/dL Near or above optimal LDL 130-159 mg/dL Borderline high LDL 160-189 mg/dL High LDL greater than 189 mg/dL Very high Cholesterol in VLDL Calc [Ma ss/Vol]Ordered By: Justyn Spann on 04-09-2022 Cholesterol in VLDL [Mass/Vol] 22 mg/dL [facility] Glucose Poct Glucometerson 0 04-09-2022 Commemt1 Glu2: Cleaned Meter [facility] Comment on above: Result Comment: PERF ORMED BY: [place] [address] PATHOLOGIST ATHLETIC TRAINER GUIDO ELIZALDE M.D. Performed By: #### G LULS #### Point of Care testing , Glucose [Mass/Vol] 164 mg/dL Normal [facility] Comment on above: Result Comment: [place] Glucose Reference Range is dependent on time and content of last meal. Glucose of more than 200 mg/dL in a nonstressed, ambulatory subject supports the diagnosis of Diabetes Mellitus. Performed By: #### G LULS #### Point of Care testing , Commemt1 Glu2: Cleaned Meter [facility] Comment on above: Result Comment: PERF ORMED BY: [place] [address] PATHOLOGIST ATHLETIC TRAINER GUIDO ELIZALDE M.D. Performed By: #### C BC, PT, PTT, CMP #### [facility] [address] [place] [address] Glucose [Mass/Vol] 152 mg/dL Normal [facility] Comment on above: Result Comment: [place] Glucose Reference Range is dependent on time and content of last meal. Glucose of more than 200 mg/dL in a nonstressed, ambulatory subject supports the diagnosis of Diabetes Mellitus. Performed By: #### C BC, PT, PTT, CMP #### [address] Glucose mean value [Mass/vol ume] in Blood Estimated from glycated hemoglobinOrdered By: Justyn Spann on 04-09-2022 Average glucose Estimated from glycated hemoglobin (Bld) [Mass/Vol] 163 mg/dL [facility] Hemoglobin A1c percentageOrd ered By: Justyn Spann on 04-09-2022 HbA1c (Bld) [Mass fraction] 7.3 % 4.3-5.6 [facility] Comment on above: Increased risk for d iabetes: 5.7 - 6.4 diabetes: >6.4 glycemic control for adults with diabetes: <7.0 Lipid Panelon 04-09-2022 Cholesterol [Mass/Vol] 128 mg/dL Low 140-200 [facility] Comment on above: Result Comment: Chol less than 200 mg/dl low risk Chol 201-239 mg/dl borderline risk Chol 240 mg/dl and greater high risk Performed By: #### G LULS #### Point of Care testing , Cholesterol in HDL [Mass/Vol] 37 mg/dL Normal 35-85 [facility] Comment on above: Result Comment: HDL CHOL ATP-III CLASSIFICATION Cardiovascular Risk HDL > or equal to 60 mg/dL LOW HDL < 40 mg/dL HIGH Performed By: #### G LULS #### Point of Care testing , Cholesterol.total/Choles terol in HDL [Mass ratio] 3.5 {ratio} Normal <5.0 [facility] Comment on above: Result Comment: PERF ORMED BY: [facility] [address] [place] [address] PATHOLOGIST ATHLETIC TRAINER GUIDO ELIZALDE M.D. Performed By: #### G LULS #### Point of Care testing , LDL Cholesterol,Calculated 68 mg/dL Normal 0-100 [facility] Comment on above: Result Comment: LDL ATP III CLASSIFICATION LDL less than 100 mg/dL Optimal LDL 100-129 mg/dL Near or above optimal LDL 130-159 mg/dL Borderline high LDL 160-189 mg/dL High LDL greater than 189 mg/dL Very high Performed By: #### G LULS #### Point of Care testing , Triglyceride w/Reflex 114 mg/dL Normal 35-149 [facility] Comment on [...] testing , VLDL CHOLESTEROL 22 mg/dL Normal [facility] Comment on above: Performed By: #### G LULS #### Point of Care testing , Serum or plasma high density lipoprotein (HDL) cholesterol measurementOrdered By: Justyn Spann on 04-09-2022 Cholesterol in HDL [Mass/Vol] 37 mg/dL 35-85 [facility] Comment on above: HDL CHOL ATP-III CLA SSIFICATION Cardiovascular Risk HDL > or equal to 60 mg/dL LOW HDL < 40 mg/dL HIGH Serum or plasma total choles terol/high density lipoprotein (HDL) cholesterol mass ratOrdered By: Justyn Spann on 04-09-2022 Cholesterol.total/Choles terol in HDL [Mass ratio] 3.5 {ratio} <5.0 [facility] Triglyceride [Mass/volume] i n Serum or PlasmaOrdered By: Justyn Spann on 04-09-2022 Triglyceride [Mass/Vol] 114 mg/dL 35-149 [facility] Comment on above: TRIG ATP III CLASSIF ICATION TRIG less than 150 mg/dL Normal TRIG 150-199 mg/dL Borderline high TRIG 200-500 mg/dL High TRIG greater than 500 mg/dL Very high Standard traceable to the Center for Disease Conrtrol and Prevention (CDC) test method. Albumin [Mass/volume] in Ser um or PlasmaOrdered By: Kingston Gao on 04-08-2022 Albumin [Mass/Vol] 2.6 g/dL Low 3.2-5.5 [facility] Comment on above: Performed By: #### C BC, PT, PTT, CMP #### [address] Automated basophil %Ordered By: Kingston Murray on 04-08-2022 Basophils/100 WBC (Bld) 0.6 % Normal . [facility] Comment on above: Performed By: #### C BC, PT, PTT, CMP #### [address] Automated basophil countOrde red By: Kingston Gao on 04-08-2022 Basophils (Bld) [#/Vol] 0.0 10*3/uL Normal 0.0-0.2 [facility] Comment on above: Result Comment: PERF ORMED BY: [place] [address] PATHOLOGIST ATHLETIC TRAINER GUIDO ELIZALDE M.D. Performed By: #### C BC, PT, PTT, CMP #### [address] Automated blood lymphocyte c ount (number/volume)Ordered By: Kingston Gao on 04-08-2022 Lymphocytes (Bld) [#/Vol] 2.0 10*3/uL Normal 1.00-4.8 [facility] Comment on above: Performed By: #### C BC, PT, PTT, CMP #### [address] Automated blood lymphocyte c ount as percentage of total leukocytesOrdered By: Kingston Gao on 04-08-2022 Lymphocytes/100 WBC (Bld) 26.1 % Normal . [facility] Comment on above: Performed By: #### C BC, PT, PTT, CMP #### [address] Automated blood monocyte cou ntOrdered By: Kingston Gao on 04-08-2022 Monocytes (Bld) [#/Vol] 0.7 10*3/uL Normal 0.0-0.8 [facility] Comment on above: Performed By: #### C BC, PT, PTT, CMP #### [address] Automated blood platelet cou nt (count/volume)Ordered By: Kingston Gao on 04-08-2022 Platelets (Bld) [#/Vol] 285 10*3/uL Normal 150-450 [facility] Comment on above: Performed By: #### C BC, PT, PTT, CMP #### [address] Automated blood platelet juliana n volume measurementOrdered By: Kingston Gao on 04-08-2022 Platelet mean volume (Bld) [Entitic vol] 8.4 fL Normal 6.3-10.7 [facility] Comment on above: Performed By: #### C BC, PT, PTT, CMP #### [address] Automated eosinophil %Ordere d By: Kingston Gao on 04-08-2022 Eosinophils/100 WBC (Bld) 2.7 % Normal . [facility] Comment on above: Performed By: #### C BC, PT, PTT, CMP #### [address] Automated eosinophil countOr dered By: Kingston Gao on 04-08-2022 Eosinophils (Bld) [#/Vol] 0.2 10*3/uL Normal 0.0-0.45 [facility] Comment on above: Performed By: #### C BC, PT, PTT, CMP #### [address] Automated erythrocyte distri bution width ratioOrdered By: Kingston Gao on 04-08-2022 Erythrocyte distribution width (RBC) [Ratio] 14.0 % Normal 11.9-15.3 [facility] Comment on above: Performed By: #### C BC, PT, PTT, CMP #### [address] Automated erythrocyte mean c orpuscular hemoglobin (mass per erythrocyte)Ordered By: Kingston Gao on 04-08-2022 MCH (RBC) [Entitic mass] 30.4 pg Normal 24.7-34.3 [facility] Comment on above: Performed By: #### C BC, PT, PTT, CMP #### [address] Automated erythrocyte mean c orpuscular volumeOrdered By: Kingston Gao on 04-08-2022 MCV (RBC) [Entitic vol] 92.2 fL Normal 80-100 [facility] Comment on above: Performed By: #### C BC, PT, PTT, CMP #### [address] Automated monocyte %Ordered By: Kingston Gao on 04-08-2022 Monocytes/100 WBC (Bld) 9.4 % Normal . [facility] Comment on above: Performed By: #### C BC, PT, PTT, CMP #### [address] Automated neutrophil %Ordere d By: Kingston Gao on 04-08-2022 Neutrophils/100 WBC (Bld) 61.2 % Normal . [facility] Comment on above: Performed By: #### C BC, PT, PTT, CMP #### [address] Blood erythrocytes automated count (number/volume)Ordered By: Kingston Gao on 04-08-2022 RBC (Bld) [#/Vol] 3.69 10*6/uL Normal 3.60-5.00 [facility] Comment on above: Performed By: #### C BC, PT, PTT, CMP #### [address] Blood hemoglobin measurement (mass/volume)Ordered By: Kingston Gao on 04-08-2022 Hemoglobin (Bld) [Mass/Vol] 11.2 g/dL Low 11.8-15.4 [facility] Comment on above: Performed By: #### C BC, PT, PTT, CMP #### [address] Blood leukocytes automated c ount (number/volume)Ordered By: Kingston Gao on 04-08-2022 WBC (Bld) [#/Vol] 7.6 10*3/uL Normal 4.5-11.0 [facility] Comment on above: Performed By: #### C BC, PT, PTT, CMP #### [address] Blood neutrophil count by au tomated method (number/volume)Ordered By: Kingston Gao on 04-08-2022 Neutrophils (Bld) [#/Vol] 4.7 10*3/uL Normal 1.8-7.7 [facility] Comment on above: Performed By: #### C BC, PT, PTT, CMP #### [address] Complete Blood Count Auto Di ffon 04-08-2022 Mean Corpuscular HGB Conc 33.0 g/dL Normal 32.0-35.0 [facility] Comment on above: Performed By: #### C BC, PT, PTT, CMP #### [address] Complete Blood Count Auto Di ffOrdered By: Kingston Gao on 04-08-2022 Nucleated RBC/100 WBC (Bld) [Ratio] 0.1 % Normal 0-0.5 [facility] Comment on above: Performed By: #### C BC, PT, PTT, CMP #### [address] Comprehensive Metabolic Pane sadiq 04-08-2022 ALT [Catalytic activity/Vol] 17 U/L Normal 10-60 [facility] Comment on above: Performed By: #### C BC, PT, PTT, CMP #### [address] Creatinine Clr Calc Pharmacy 57.76 Normal [facility] Comment on above: Performed By: #### C BC, PT, PTT, CMP #### [address] Estimated GFR ( Froylan > 60 Normal [facility] Comment on above: Result Comment: GFR estimated reference range: According to KDOQI guidelines, <60 ml/min/1.73m2 is sufficient to diagnose a patient with chronic kidney disease. Performed By: #### C BC, PT, PTT, CMP #### [address] Estimated GFR (Non- Am > 60 Normal [facility] Comment on above: Performed By: #### C BC, PT, PTT, CMP #### [address] Estimated glomerular filtrat ion rate (GFR) non- AmericanOrdered By: Kingston Gao on 04-08-2022 GFR/1.73 sq M.predicted among non-blacks MDRD (S/P/Bld) [Vol rate/Area] > 60 mL/Min [facility] Glucose Poct Glucometerson 0 04-08-2022 Glucose [Mass/Vol] 83 mg/dL Normal [facility] Comment on above: Result Comment: [facility] Glucose Reference Range is dependent on time and content of last meal. Glucose of more than 200 mg/dL in a nonstressed, ambulatory subject supports the diagnosis of Diabetes Mellitus. PERFORMED BY: [place] [address] PATHOLOGIST ATHLETIC TRAINER GUIDO ELIZALDE M.D. Performed By: #### G LULS #### Point of Care testing , Glucose [Mass/Vol] 115 mg/dL Normal [facility] Comment on above: Result Comment: [facility] Glucose Reference Range is dependent on time and content of last meal. Glucose of more than 200 mg/dL in a nonstressed, ambulatory subject supports the diagnosis of Diabetes Mellitus. PERFORMED BY: [place] [address] PATHOLOGIST ATHLETIC TRAINER GUIDO ELIZALDE M.D. Performed By: #### C BC, PT, PTT, CMP #### [address] Hematocrit [Volume Fraction] of Blood by Automated countOrdered By: Kingston Gao on 04-08-2022 Hematocrit (Bld) [Volume fraction] 34.0 % Normal 34.0-46.4 [facility] Comment on above: Performed By: #### C BC, PT, PTT, CMP #### [address] MCHC Auto (RBC) [Mass/Vol]Or dered By: Kingston Gao on 04-08-2022 MCHC (RBC) [Mass/Vol] 33.0 g/dL 32.0-35.0 [facility] No Panel InformationOrdered By: Kingston Gao on 04-08-2022 Estimated GFR () > 60 mL/Min [facility] Comment on above: GFR estimated refere nce range: According to KDOQI guidelines, <60 ml/min/1.73m2 is sufficient to diagnose a patient with chronic kidney disease. Pharmacy Creatinine Clearance (Chem 57.76 [facility] Protein [Mass/volume] in Ser um or PlasmaOrdered By: Kingston Gao on 04-08-2022 Protein [Mass/Vol] 5.6 g/dL Low 6.1-7.9 [facility] Comment on above: Performed By: #### C BC, PT, PTT, CMP #### [facility] [address] Serum globulin measurement b y calculation (mass/volume)Ordered By: Kingston Gao on 04-08-2022 Globulin (S) [Mass/Vol] 3.0 g/dL Normal [facility] Comment on above: Performed By: #### C BC, PT, PTT, CMP #### [facility] [address] Serum or plasma alanine [place] otransferase measurement without P-5'-P (enzymatic activiOrdered By: Kingston Gao on 04-08-2022 ALT No additional P-5'-P [Catalytic activity/Vol] 17 U/L 10-60 [facility] Serum or plasma albumin/glob ulin mass ratioOrdered By: Kingston Gao on 04-08-2022 Albumin/Globulin [Mass ratio] 0.9 {ratio} Normal [facility] Comment on above: Performed By: #### C BC, PT, PTT, CMP #### [address] Serum or plasma alkaline dolly sphatase measurement (enzymatic activity/volume)Ordered By: Kingston Gao on 04-08-2022 ALP [Catalytic activity/Vol] 56 U/L Normal 32-92 [facility] Comment on above: Performed By: #### C BC, PT, PTT, CMP #### [address] Serum or plasma aspartate am inotransferase measurement (enzymatic activity/volume)Ordered By: Kingston Gao on 04-08-2022 AST [Catalytic activity/Vol] 18 U/L Normal 10-42 [facility] Comment on above: Performed By: #### C BC, PT, PTT, CMP #### [address] Serum or plasma calcium nakul urement (mass/volume)Ordered By: Kingston Gao on 04-08-2022 Calcium [Mass/Vol] 9.2 mg/dL Normal 8.2-10.2 [facility] Comment on above: Performed By: #### C BC, PT, PTT, CMP #### [address] Serum or plasma chloride juliana surement (moles/volume)Ordered By: Kingston Gao on 04-08-2022 Chloride [Moles/Vol] 101 mmol/L Normal 95-114 [facility] Comment on above: Performed By: #### C BC, PT, PTT, CMP #### [address] Serum or plasma creatinine m easurement with calculation of estimated glomerular filtrOrdered By: Kingston Gao on 04-08-2022 Creatinine [Mass/Vol] 0.72 mg/dL Normal 0.44-1.03 [facility] Comment on above: Performed By: #### C BC, PT, PTT, CMP #### [address] Serum or plasma glucose nakul urement (mass/volume)Ordered By: Kingston Gao on 04-08-2022 Glucose [Mass/Vol] 119 mg/dL High 70-100 [facility] Comment on above: ADA recommended refe rence range Random Glucose Reference Range is dependent on time and content of last meal. Glucose of more than 200 mg/dL in a nonstressed, ambulatory subject supports the diagnosis of Diabetes Mellitus. Result Comment: [facility] Glucose Reference Range is dependent on time and content of last meal. Glucose of more than 200 mg/dL in a nonstressed, ambulatory subject supports the diagnosis of Diabetes Mellitus. ADA recommended reference range Performed By: #### C BC, PT, PTT, CMP #### [address] Serum or plasma potassium me asurement (moles/volume)Ordered By: Kingston Gao on 04-08-2022 Potassium [Moles/Vol] 4.2 mmol/L Normal 3.5-5.1 [facility] Comment on above: Performed By: #### C BC, PT, PTT, CMP #### [address] Serum or plasma prealbumin m easurement (mass/volume)Ordered By: Kingston Gao on 04-08-2022 Prealbumin [Mass/Vol] 15.9 mg/dL Low 18.0-38.0 [facility] Comment on above: Result Comment: PERF ORMED BY: [place] [address] PATHOLOGIST ATHLETIC TRAINER GUIDO ELIZALDE M.D. Performed By: #### C BC, PT, PTT, CMP #### [address] Serum or plasma sodium measu rement (moles/volume)Ordered By: Kingston Gao on 04-08-2022 Sodium [Moles/Vol] 138 mmol/L Normal 136-146 [facility] Comment on above: Performed By: #### C BC, PT, PTT, CMP #### [address] Serum or plasma total biliru bin measurement (mass/volume)Ordered By: Kingston Gao on 04-08-2022 Bilirubin [Mass/Vol] 0.5 mg/dL Normal 0.3-1.2 [facility] Comment on above: Performed By: #### C BC, PT, PTT, CMP #### [address] Serum or plasma total carbon dioxide measurement (moles/volume)Ordered By: Kingston Gao on 04-08-2022 CO2 [Moles/Vol] 28.4 mmol/L Normal 22.0-30.0 [facility] Comment on above: Performed By: #### C BC, PT, PTT, CMP #### [facility] [address] Serum or plasma urea nitroge n measurement (mass/volume)Ordered By: Kingston Gao on 04-08-2022 Urea nitrogen [Mass/Vol] 7 mg/dL Low 07-01 [facility] Comment on above: Performed By: #### C BC, PT, PTT, CMP #### [facility] [address] Glucose Poct Glucometerson 0 04-07-2022 Glucose [Mass/Vol] 161 mg/dL Normal [facility] Comment on above: Result Comment: [place] Glucose Reference Range is dependent on time and content of last meal. Glucose of more than 200 mg/dL in a nonstressed, ambulatory subject supports the diagnosis of Diabetes Mellitus. PERFORMED BY: [place] [address] PATHOLOGIST ATHLETIC TRAINER GUIDO ELIZALDE M.D. Performed By: #### C BC, PT, PTT, CMP #### [facility] [address] Glucose [Mass/Vol] 110 mg/dL Normal [facility] Comment on above: Result Comment: [place] Glucose Reference Range is dependent on time and content of last meal. Glucose of more than 200 mg/dL in a nonstressed, ambulatory subject supports the diagnosis of Diabetes Mellitus. PERFORMED BY: [place] [address] PATHOLOGIST ATHLETIC TRAINER GUIDO ELIZALDE M.D. Performed By: #### G LULS #### Point of Care testing , Urine culture routineOrdered By: Kieran Scott on 03-29-2022 Bacteria identified Cx Nom (U) 2 Days [facility] Albumin [Mass/volume] in Ser um or PlasmaOrdered By: Kieran Scott on 03-28-2022 Albumin [Mass/Vol] 2.8 g/dL 3.2-5.5 [facility] Basophils Auto (Bld) [#/Vol] Ordered By: Kieran Tyler on 03-28-2022 Basophils (Bld) [#/Vol] 0.0 10*3/uL 0.0-0.2 [facility] Basophils/100 WBC Auto (Bld) Ordered By: Kieran Tyler on 03-28-2022 Basophils/100 WBC (Bld) 0.6 % . F [facility] Blood hemoglobin measurement (mass/volume)Ordered By: Kieran Benjaminmood on 03-28-2022 Hemoglobin (Bld) [Mass/Vol] 13.1 g/dL 11.8-15.4 [facility] Blood leukocytes automated c ount (number/volume)Ordered By: Kieran Scott on 03-28-2022 WBC (Bld) [#/Vol] 7.1 10*3/uL 4.5-11.0 [facility] Complete Blood Count Auto Di ffon 03-28-2022 Basophils (Bld) [#/Vol] 0.0 10*3/uL Normal 0.0-0.2 [facility] Comment on above: Result Comment: PERF ORMED BY: [facility] [address] [place] [address] PATHOLOGIST ATHLETIC TRAINER GUIDO ELIZALDE M.D. Performed By: #### G LULS #### Point of Care testing , Basophils/100 WBC (Bld) 0.6 % Normal . [facility] Comment on above: Performed By: #### G LULS #### Point of Care testing , Eosinophils (Bld) [#/Vol] 0.3 10*3/uL Normal 0.0-0.45 [facility] Comment on above: Performed By: #### G LULS #### Point of Care testing , Eosinophils/100 WBC (Bld) 3.9 % Normal . [facility] Comment on above: Performed By: #### G LULS #### Point of Care testing , Erythrocyte distribution width (RBC) [Ratio] 13.7 % Normal 11.9-15.3 [facility] Comment on above: Performed By: #### G INOCENTE #### Point of Care testing , Hematocrit (Bld) [Volume fraction] 38.7 % Normal 34.0-46.4 [facility] Comment on above: Performed By: #### G CLEMENTLS #### Point of Care testing , Hemoglobin (Bld) [Mass/Vol] 13.1 g/dL Normal 11.8-15.4 [facility] Comment on above: Performed By: #### G CLEMENTLS #### Point of Care testing , Lymphocytes (Bld) [#/Vol] 2.7 10*3/uL Normal 1.00-4.8 [facility] Comment on above: Performed By: #### G CLEMENTLS #### Point of Care testing , Lymphocytes/100 WBC (Bld) 37.6 % Normal . [facility] Comment on above: Performed By: #### G CLEMENTLS #### Point of Care testing , MCH (RBC) [Entitic mass] 30.7 pg Normal 24.7-34.3 [facility] Comment on above: Performed By: #### Shanti VAUGHANLS #### Point of Care testing , MCV (RBC) [Entitic vol] 90.6 fL Normal 80-100 [facility] Comment on above: Performed By: #### G CLEMENTLS #### Point of Care testing , Mean Corpuscular HGB Conc 33.9 g/dL Normal 32.0-35.0 [facility] Comment on above: Performed By: #### G INOCENTE #### Point of Care testing , Monocytes (Bld) [#/Vol] 0.6 10*3/uL Normal 0.0-0.8 [facility] Comment on above: Performed By: #### G CLEMENTLS #### Point of Care testing , Monocytes/100 WBC (Bld) 8.5 % Normal . [facility] Comment on above: Performed By: #### G INOCENTE #### Point of Care testing , Neutrophils (Bld) [#/Vol] 3.5 10*3/uL Normal 1.8-7.7 [facility] Comment on above: Performed By: #### G INOCENTE #### Point of Care testing , Neutrophils/100 WBC (Bld) 49.4 % Normal . [facility] Comment on above: Performed By: #### G CLEMENTLS #### Point of Care testing , Nucleated RBC/100 WBC (Bld) [Ratio] 0.2 % Normal 0-0.5 [facility] Comment on above: Performed By: #### G CLEMENTLS #### Point of Care testing , Platelet mean volume (Bld) [Entitic vol] 8.8 fL Normal 6.3-10.7 [facility] Comment on above: Performed By: #### G INOCENTE #### Point of Care testing , Platelets (Bld) [#/Vol] 245 10*3/uL Normal 150-450 [facility] Comment on above: Performed By: #### G CLEMENTLS #### Point of Care testing , RBC (Bld) [#/Vol] 4.27 10*6/uL Normal 3.60-5.00 [facility] Comment on above: Performed By: #### G INOCENTE #### Point of Care testing , WBC (Bld) [#/Vol] 7.1 10*3/uL Normal 4.5-11.0 [facility] Comment on above: Performed By: #### G CLEMENTLS #### Point of Care testing , Comprehensive Metabolic Pane sadiq 03-28-2022 Alanine Aminotransferase Normal 10-60 [facility] Comment on above: Result Comment: Unac ceptable specimen due to hemolysis. Redraw reordered. Performed By: #### G CLEMENTLS #### Point of Care testing , Albumin [Mass/Vol] 2.8 g/dL Low 3.2-5.5 [facility] Comment on above: Performed By: #### G CLEMENTLS #### Point of Care testing , Albumin/Globulin [Mass ratio] 1.0 {ratio} Normal [facility] Comment on above: Performed By: #### G CLEMENTLS #### Point of Care testing , Alkaline Phosphatase Normal 32-92 [facility] Comment on above: Result Comment: Unac ceptable specimen due to hemolysis. Redraw reordered. Performed By: #### G LULS #### Point of Care testing , Aspartate Amino Transferase Normal 10-42 [facility] Comment on above: Result Comment: Unac ceptable specimen due to hemolysis. Redraw reordered. Performed By: #### G LULS #### Point of Care testing , Bilirubin,Total Normal 0.3-1.2 [facility] Comment on above: Result Comment: Unac ceptable specimen due to hemolysis. Redraw reordered. Performed By: #### G LULS #### Point of Care testing , Calcium [Mass/Vol] 8.8 mg/dL Normal 8.2-10.2 [facility] Comment on above: Performed By: #### G LULS #### Point of Care testing , Chloride [Moles/Vol] 104 mmol/L Normal 95-114 [facility] Comment on above: Performed By: #### G LULS #### Point of Care testing , CO2 [Moles/Vol] 25.7 mmol/L Normal 22.0-30.0 [facility] Comment on above: Performed By: #### G LULS #### Point of Care testing , Creatinine [Mass/Vol] 0.74 mg/dL Normal 0.44-1.03 [facility] Comment on above: Performed By: #### G LULS #### Point of Care testing , Creatinine Clr Calc Pharmacy 53.72 [facility] Comment on above: Result Comment: PERF ORMED BY: [facility] [address] [place] [address] PATHOLOGIST ATHLETIC TRAINER GUIDO ELIZALDE M.D. Performed By: #### G LULS #### Point of Care testing , Estimated GFR ( Froylan > 60 Normal [facility] Comment on above: Result Comment: GFR estimated reference range: According to KDOQI guidelines, <60 ml/min/1.73m2 is sufficient to diagnose a patient with chronic kidney disease. Performed By: #### G LULS #### Point of Care testing , Estimated GFR (Non- Am > 60 Normal [facility] Comment on above: Performed By: #### G LULS #### Point of Care testing , Globulin (S) [Mass/Vol] 2.9 g/dL Normal [facility] Comment on above: Performed By: #### G LULS #### Point of Care testing , Glucose [Mass/Vol] 193 mg/dL High 70-100 [facility] Comment on above: Result Comment: [facility] Glucose Reference Range is dependent on time and content of last meal. Glucose of more than 200 mg/dL in a nonstressed, ambulatory subject supports the diagnosis of Diabetes Mellitus. ADA recommended reference range Performed By: #### G LULS #### Point of Care testing , Potassium Normal 3.5-5.1 [facility] Comment on above: Result Comment: Unac ceptable specimen due to hemolysis. Redraw reordered. Performed By: #### G LULS #### Point of Care testing , Protein [Mass/Vol] 5.7 g/dL Low 6.1-7.9 [facility] Comment on above: Performed By: #### G LULS #### Point of Care testing , Sodium [Moles/Vol] 138 mmol/L Normal 136-146 [facility] Comment on above: Performed By: #### G LULS #### Point of Care testing , Urea nitrogen [Mass/Vol] 18 mg/dL Normal 9-23 [facility] Comment on above: Performed By: #### G LULS #### Point of Care testing , Creatinine and Glomerular fi ltration rate.predicted panel (S/P/Bld)Ordered By: Kieran Scott on 03-28-2022 Creatinine [Mass/Vol] 0.74 mg/dL 0.44-1.03 [facility] Eosinophils Auto (Bld) [#/Vo l]Ordered By: Kieran Tyler on 03-28-2022 Eosinophils (Bld) [#/Vol] 0.3 10*3/uL 0.0-0.45 [facility] Eosinophils/100 WBC Auto (Bl d)Ordered By: Kieran Scott on 03-28-2022 Eosinophils/100 WBC (Bld) 3.9 % . [facility] Erythrocyte distribution wid th Auto (RBC) [Ratio]Ordered By: Kieran Scott on 03-28-2022 Erythrocyte distribution width (RBC) [Ratio] 13.7 % 11.9-15.3 [facility] Estimated glomerular filtrat ion rate (GFR) non- AmericanOrdered By: Kieran Scott on 03-28-2022 GFR/1.73 sq M.predicted among non-blacks MDRD (S/P/Bld) [Vol rate/Area] > 60 mL/Min [facility] Globulin Calc (S) [Mass/Vol] Ordered By: Kieran Scott on 03-28-2022 Globulin (S) [Mass/Vol] 2.9 g/dL F [facility] Glucose Glucometer (BldC) [M ass/Vol]Ordered By: Rupert Anthony on 03-28-2022 Glucose [Mass/Vol] 236 mg/dL [facility] Comment on above: Random Glucose Refer ence Range is dependent on time and content of last meal. Glucose of more than 200 mg/dL in a nonstressed, ambulatory subject supports the diagnosis of Diabetes Mellitus. Glucose Poct Glucometerson 0 03-28-2022 Commemt1 Glu2: Cleaned Meter Normal [facility] Comment on above: Result Comment: PERF ORMED BY: [place] [address] PATHOLOGIST ATHLETIC TRAINER GUIDO ELIZALDE M.D. Performed By: #### C BC, PT, PTT, CMP #### [facility] [address] Glucose [Mass/Vol] 236 mg/dL Normal [facility] Comment on above: Result Comment: [place] Glucose Reference Range is dependent on time and content of last meal. Glucose of more than 200 mg/dL in a nonstressed, ambulatory subject supports the diagnosis of Diabetes Mellitus. Performed By: #### C BC, PT, PTT, CMP #### [facility] [address] [place] [id number] [facility] Glucose [Mass/Vol] 193 mg/dL Normal [facility] Comment on above: Result Comment: [facility] Glucose Reference Range is dependent on time and content of last meal. Glucose of more than 200 mg/dL in a nonstressed, ambulatory subject supports the diagnosis of Diabetes Mellitus. PERFORMED BY: [facility] [address] [facility] [place] [address] PATHOLOGIST ATHLETIC TRAINER GUIDO ELIZALDE M.D. Performed By: #### C BC, PT, PTT, CMP #### [facility] [address] Hematocrit Auto (Bld) [Volum e fraction]Ordered By: Kieran Scott on 03-28-2022 Hematocrit (Bld) [Volume fraction] 38.7 % 34.0-46.4 [facility] Laboratory - Chemistry and C hemistry - challengeOrdered By: Kieran Scott on 03-28-2022 AST [Catalytic activity/Vol] 24 U/L 10-42 [facility] Laboratory - Hematology and Cell countsOrdered By: Kieran Scott on 03-28-2022 Nucleated RBC/100 WBC (Bld) [Ratio] 0.2 % 0-0.5 [facility] Lymphocytes Auto (Bld) [#/Vo l]Ordered By: Kieran Scott on 03-28-2022 Lymphocytes (Bld) [#/Vol] 2.7 10*3/uL 1.00-4.8 [facility] Lymphocytes/100 WBC Auto (Bl d)Ordered By: Kieran Scott on 03-28-2022 Lymphocytes/100 WBC (Bld) 37.6 % . [facility] MCH Auto (RBC) [Entitic mass ]Ordered By: Kieran Scott on 03-28-2022 MCH (RBC) [Entitic mass] 30.7 pg 24.7-34.3 [facility] MCHC Auto (RBC) [Mass/Vol]Or dered By: Kieran Scott on 03-28-2022 MCHC (RBC) [Mass/Vol] 33.9 g/dL 32.0-35.0 [facility] MCV Auto (RBC) [Entitic vol] Ordered By: Kieran Scott on 03-28-2022 MCV (RBC) [Entitic vol] 90.6 fL 80-100 [facility] Monocytes Auto (Bld) [#/Vol] Ordered By: Kieran Tyler on 03-28-2022 Monocytes (Bld) [#/Vol] 0.6 10*3/uL 0.0-0.8 [facility] Monocytes/100 WBC Auto (Bld) Ordered By: Kieran Tyler on 03-28-2022 Monocytes/100 WBC (Bld) 8.5 % . [facility] Neutrophils Auto (Bld) [#/Vo l]Ordered By: Kieran Scott on 03-28-2022 Neutrophils (Bld) [#/Vol] 3.5 10*3/uL 1.8-7.7 [facility] Neutrophils/100 WBC Auto (Bl d)Ordered By: Kieran Scott on 03-28-2022 Neutrophils/100 WBC (Bld) 49.4 % . [facility] No Panel InformationOrdered By: Rupert Anthony on 03-28-2022 Bedside Glucose Comment Glu2: cleaned meter [facility] No Panel InformationOrdered By: Kieran Scott on 03-28-2022 Estimated GFR () > 60 mL/Min [facility] Comment on above: GFR estimated refere nce range: According to KDOQI guidelines, <60 ml/min/1.73m2 is sufficient to diagnose a patient with chronic kidney disease. Pharmacy Creatinine Clearance (Chem 53.72 [facility] Platelet mean volume Auto (B ld) [Entitic vol]Ordered By: Kieran Scott on 03-28-2022 Platelet mean volume (Bld) [Entitic vol] 8.8 fL 6.3-10.7 [facility] Platelets Auto (Bld) [#/Vol] Ordered By: Kieran Scott on 03-28-2022 Platelets (Bld) [#/Vol] 245 10*3/uL 150-450 [facility] Protein [Mass/volume] in Ser um or PlasmaOrdered By: Kieran Scott on 03-28-2022 Protein [Mass/Vol] 5.7 g/dL 6.1-7.9 [facility] RBC Auto (Bld) [#/Vol]Ordere d By: Kieran Scott on 03-28-2022 RBC (Bld) [#/Vol] 4.27 10*6/uL 3.60-5.00 [facility] Redraw Jadyn 03-28-2022 ALT [Catalytic activity/Vol] 25 U/L Normal 10-60 [facility] Comment on above: Order Comment: REDRA W Performed By: #### G LULS #### Point of Care testing , Redraw Tripp 03-28-2022 AST [Catalytic activity/Vol] 24 U/L Normal 10-42 [facility] Comment on above: Order Comment: REDRA W Performed By: #### G LULS #### Point of Care testing , Redraw Alkaline Phosphataseo n 03-28-2022 ALP [Catalytic activity/Vol] 50 U/L Normal 32-92 [facility] Comment on above: Order Comment: REDRA W Result Comment: PERF ORMED BY: [facility] [address] [place] [address] PATHOLOGIST ATHLETIC TRAINER GUIDO ELIZALDE M.D. Performed By: #### G LULS #### Point of Care testing , Redraw Bilirubin,Totalon Bilirubin [Mass/Vol] 0.8 mg/dL Normal 0.3-1.2 [facility] Comment on above: Order Comment: REDRA W Performed By: #### G LULS #### Point of Care testing , Redraw Potassiumon Potassium [Moles/Vol] 4.7 mmol/L Normal 3.5-5.1 [facility] Comment on above: Order Comment: REDRA W Performed By: #### G LULS #### Point of Care testing , Serum or plasma alanine [place] otransferase measurement without P-5'-P (enzymatic activiOrdered By: Kieran Scott on 03-28-2022 ALT No additional P-5'-P [Catalytic activity/Vol] 25 U/L 10-60 [facility] Serum or plasma albumin/glob ulin mass ratioOrdered By: Kieran Scott on 03-28-2022 Albumin/Globulin [Mass ratio] 1.0 {ratio} [facility] Serum or plasma alkaline dolly sphatase measurement (enzymatic activity/volume)Ordered By: Kieran Scott on 03-28-2022 ALP [Catalytic activity/Vol] 50 U/L 32-92 [facility] Serum or plasma calcium nakul urement (mass/volume)Ordered By: Kieran Scott on 03-28-2022 Calcium [Mass/Vol] 8.8 mg/dL 8.2-10.2 [facility] Serum or plasma chloride juliana surement (moles/volume)Ordered By: Kieran Scott on 03-28-2022 Chloride [Moles/Vol] 104 mmol/L 95-114 [facility] Serum or plasma glucose nakul urement (mass/volume)Ordered By: Kieran Scott on 03-28-2022 Glucose [Mass/Vol] 193 mg/dL 70-100 [facility] Comment on above: ADA recommended refe rence range Random Glucose Reference Range is dependent on time and content of last meal. Glucose of more than 200 mg/dL in a nonstressed, ambulatory subject supports the diagnosis of Diabetes Mellitus. Serum or plasma potassium me asurement (moles/volume)Ordered By: Kieran Scott on 03-28-2022 Potassium [Moles/Vol] 4.7 mmol/L 3.5-5.1 [facility] Serum or plasma sodium measu rement (moles/volume)Ordered By: Kieran Scott on 03-28-2022 Sodium [Moles/Vol] 138 mmol/L 136-146 [facility] Serum or plasma total biliru bin measurement (mass/volume)Ordered By: Kieran Scott on 03-28-2022 Bilirubin [Mass/Vol] 0.8 mg/dL 0.3-1.2 [facility] Serum or plasma total carbon dioxide measurement (moles/volume)Ordered By: Kieran Scott on 03-28-2022 CO2 [Moles/Vol] 25.7 mmol/L 22.0-30.0 [facility] Serum or plasma urea nitroge n measurement (mass/volume)Ordered By: Kieran Bensonod on 03-28-2022 Urea nitrogen [Mass/Vol] 18 mg/dL 9-23 [facility] Automated erythrocytes count in urine sediment (number/area)Ordered By: Kieran Benjaminmood on 03-27-2022 RBC Auto (Urine sed) [#/Area] 10-19 [HPF] 0-4 [facility] Automated leukocytes count i n urine sediment (number/area)Ordered By: Kieran Benjaminmood on 03-27-2022 WBC Auto (Urine sed) [#/Area] 5-9 [HPF] 0-4 [facility] Bilirubin Test strip Ql (U)O rdered By: Kieran Bensonod on 03-27-2022 Bilirubin Ql (U) Negative Negative [facility] Color Auto (U)Ordered By: Vivek rastareyes Tyler on 03-27-2022 Color (U) Yellow Yellow [facility] Complete Blood Count Auto Di ffon 03-27-2022 Basophils (Bld) [#/Vol] 0.0 10*3/uL Normal 0.0-0.2 [facility] Comment on above: Result Comment: PERF ORMED BY: [place] [address] PATHOLOGIST ATHLETIC TRAINER GUIDO ELIZALDE M.D. Performed By: #### C BC, PT, PTT, CMP #### [facility] [address] [place] [address] [place] Basophils/100 WBC (Bld) 0.4 % Normal . [facility] Comment on above: Performed By: #### C BC, PT, PTT, CMP #### [facility] [address] [place] [address] [place] Eosinophils (Bld) [#/Vol] 0.3 10*3/uL Normal 0.0-0.45 [facility] Comment on above: Performed By: #### C BC, PT, PTT, CMP #### [facility] [address] [place] [address] [place] Eosinophils/100 WBC (Bld) 4.2 % Normal . [facility] Comment on above: Performed By: #### C BC, PT, PTT, CMP #### [facility] [address] Erythrocyte distribution width (RBC) [Ratio] 13.8 % Normal 11.9-15.3 [facility] Comment on above: Performed By: #### C BC, PT, PTT, CMP #### [address] Hematocrit (Bld) [Volume fraction] 40.4 % Normal 34.0-46.4 [facility] Comment on above: Performed By: #### C BC, PT, PTT, CMP #### [address] Hemoglobin (Bld) [Mass/Vol] 13.6 g/dL Normal 11.8-15.4 [facility] Comment on above: Performed By: #### C BC, PT, PTT, CMP #### [address] Lymphocytes (Bld) [#/Vol] 3.0 10*3/uL Normal 1.00-4.8 [facility] Comment on above: Performed By: #### C BC, PT, PTT, CMP #### [address] Lymphocytes/100 WBC (Bld) 36.2 % Normal . [facility] Comment on above: Performed By: #### C BC, PT, PTT, CMP #### [address] MCH (RBC) [Entitic mass] 30.7 pg Normal 24.7-34.3 [facility] Comment on above: Performed By: #### C BC, PT, PTT, CMP #### [address] MCV (RBC) [Entitic vol] 90.9 fL Normal 80-100 [facility] Comment on above: Performed By: #### C BC, PT, PTT, CMP #### [facility] [address] Mean Corpuscular HGB Conc 33.7 g/dL Normal 32.0-35.0 [facility] Comment on above: Performed By: #### C BC, PT, PTT, CMP #### [facility] [address] Monocytes (Bld) [#/Vol] 0.8 10*3/uL Normal 0.0-0.8 [facility] Comment on above: Performed By: #### C BC, PT, PTT, CMP #### [address] Monocytes/100 WBC (Bld) 9.6 % Normal . [facility] Comment on above: Performed By: #### C BC, PT, PTT, CMP #### [address] Neutrophils (Bld) [#/Vol] 4.1 10*3/uL Normal 1.8-7.7 [facility] Comment on above: Performed By: #### C BC, PT, PTT, CMP #### [place] [address] [place] Neutrophils/100 WBC (Bld) 49.6 % Normal . [facility] Comment on above: Performed By: #### C BC, PT, PTT, CMP #### [place] [address] [place] Nucleated RBC/100 WBC (Bld) [Ratio] 0.0 % Normal 0-0.5 [facility] Comment on above: Performed By: #### C BC, PT, PTT, CMP #### [place] [address] [place] Platelet mean volume (Bld) [Entitic vol] 8.6 fL Normal 6.3-10.7 [facility] Comment on above: Performed By: #### C BC, PT, PTT, CMP #### [place] [address] [place] Platelets (Bld) [#/Vol] 240 10*3/uL Normal 150-450 [facility] Comment on above: Performed By: #### C BC, PT, PTT, CMP #### [address] RBC (Bld) [#/Vol] 4.45 10*6/uL Normal 3.60-5.00 [facility] Comment on above: Performed By: #### C BC, PT, PTT, CMP #### [address] WBC (Bld) [#/Vol] 8.2 10*3/uL Normal 4.5-11.0 [facility] Comment on above: Performed By: #### C BC, PT, PTT, CMP #### [address] Comprehensive Metabolic Pane sadiq 03-27-2022 Albumin [Mass/Vol] 2.9 g/dL Low 3.2-5.5 [facility] Comment on above: Performed By: #### C BC, PT, PTT, CMP #### [address] Albumin/Globulin [Mass ratio] 1.0 {ratio} Normal [facility] Comment on above: Performed By: #### C BC, PT, PTT, CMP #### [facility] [address] [place] [address] ALP [Catalytic activity/Vol] 51 U/L Normal 32-92 [facility] [facility] Comment on above: Performed By: #### C BC, PT, PTT, CMP #### [facility] [address] [place] [address] ALT [Catalytic activity/Vol] 26 U/L Normal 10-60 [facility] Comment on above: Performed By: #### C BC, PT, PTT, CMP #### [facility] [address] [place] [address] AST [Catalytic activity/Vol] 22 U/L Normal 10-42 [facility] Comment on above: Performed By: #### C BC, PT, PTT, CMP #### [facility] [address] Bilirubin [Mass/Vol] 0.8 mg/dL Normal 0.3-1.2 [facility] Comment on above: Performed By: #### C BC, PT, PTT, CMP #### [facility] [address] Calcium [Mass/Vol] 9.0 mg/dL Normal 8.2-10.2 [facility] Comment on above: Performed By: #### C BC, PT, PTT, CMP #### [facility] [address] Chloride [Moles/Vol] 101 mmol/L Normal 95-114 [facility] Comment on above: Performed By: #### C BC, PT, PTT, CMP #### [address] CO2 [Moles/Vol] 27.1 mmol/L Normal 22.0-30.0 [facility] Comment on above: Performed By: #### C BC, PT, PTT, CMP #### [address] Creatinine [Mass/Vol] 0.85 mg/dL Normal 0.44-1.03 [facility] Comment on above: Performed By: #### C BC, PT, PTT, CMP #### [address] Creatinine Clr Calc Pharmacy 50.56 [facility] Comment on above: Result Comment: PERF ORMED BY: [place] [address] PATHOLOGIST ATHLETIC TRAINER GUIDO ELIZALDE M.D. Performed By: #### C BC, PT, PTT, CMP #### [address] Estimated GFR ( Froylan > 60 Normal [facility] Comment on above: Result Comment: GFR estimated reference range: According to KDOQI guidelines, <60 ml/min/1.73m2 is sufficient to diagnose a patient with chronic kidney disease. Performed By: #### C BC, PT, PTT, CMP #### [facility] [address] Estimated GFR (Non- Am > 60 Normal [facility] Comment on above: Performed By: #### C BC, PT, PTT, CMP #### [facility] [address] Globulin (S) [Mass/Vol] 3.0 g/dL Normal F [facility] Comment on above: Performed By: #### C BC, PT, PTT, CMP #### [facility] [address] Glucose [Mass/Vol] 177 mg/dL High 70-100 [facility] Comment on above: Result Comment: [place] Glucose Reference Range is dependent on time and content of last meal. Glucose of more than 200 mg/dL in a nonstressed, ambulatory subject supports the diagnosis of Diabetes Mellitus. ADA recommended reference range Performed By: #### C BC, PT, PTT, CMP #### [facility] [address] Potassium [Moles/Vol] 4.0 mmol/L Normal 3.5-5.1 [facility] Comment on above: Performed By: #### C BC, PT, PTT, CMP #### [facility] [address] Protein [Mass/Vol] 5.9 g/dL Low 6.1-7.9 [facility] Comment on above: Performed By: #### C BC, PT, PTT, CMP #### [facility] [address] Sodium [Moles/Vol] 139 mmol/L Normal 136-146 [facility] Comment on above: Performed By: #### C BC, PT, PTT, CMP #### [facility] [address] Urea nitrogen [Mass/Vol] 23 mg/dL Normal 9-23 [facility] Comment on above: Performed By: #### C BC, PT, PTT, CMP #### [place] [address] [place] Dipstick and Microscopicon 0 03-27-2022 Appearance (U) Clear Normal Clear [facility] Comment on above: Order Comment: Name Collection Type:: Clean-Voided Midstream Performed By: #### G LULS #### Point of Care testing , Bacteria,Urine None Seen Normal None Seen [facility] Comment on above: Order Comment: Name Collection Type:: Clean-Voided Midstream Performed By: #### G LULS #### Point of Care testing , Bilirubin,Urine Negative Normal Negative [facility] Comment on above: Order Comment: Name Collection Type:: Clean-Voided Midstream Performed By: #### G LULS #### Point of Care testing , Color (U) Yellow Normal Yellow [facility] Comment on above: Order Comment: Name Collection Type:: Clean-Voided Midstream Performed By: #### G LULS #### Point of Care testing , Glucose Ql (U) 500 mg/dL High Normal [facility] Comment on above: Order Comment: Name Collection Type:: Clean-Voided Midstream Performed By: #### G LULS #### Point of Care testing , Hyaline Casts,Urine None Seen Normal 0-8 [facility] Comment on above: Order Comment: Name Collection Type:: Clean-Voided Midstream Result Comment: PERF ORMED BY: [place] [address] PATHOLOGIST ATHLETIC TRAINER GUIDO ELIZALDE M.D. Performed By: #### G LULS #### Point of Care testing , Ketones Ql (U) Negative Normal Negative [facility] Comment on above: Order Comment: Name Collection Type:: Clean-Voided Midstream Performed By: #### G LULS #### Point of Care testing , Leukocyte esterase Test strip Ql (U) 2+ High Negative [facility] Comment on above: Order Comment: Name Collection Type:: Clean-Voided Midstream Performed By: #### G LULS #### Point of Care testing , Nitrite,Urine Negative Normal Negative [facility] Comment on above: Order Comment: Name Collection Type:: Clean-Voided Midstream Performed By: #### G LULS #### Point of Care testing , Occult Blood,Urine 2+ High Negative [facility] Comment on above: Order Comment: Name Collection Type:: Clean-Voided Midstream Result Comment: PERF ORMED BY: [place] [address] PATHOLOGIST ATHLETIC TRAINER GUIDO ELIZALDE M.D. Performed By: #### G LULS #### Point of Care testing , pH (U) 5.5 [pH] Normal 5.0-9.0 [facility] Comment on above: Order Comment: Name Collection Type:: Clean-Voided Midstream Performed By: #### G LULS #### Point of Care testing , Protein,Urine Negative Normal Negative [facility] Comment on above: Order Comment: Name Collection Type:: Clean-Voided Midstream Performed By: #### G LULS #### Point of Care testing , RBC,Urine 10-19 High 0-4 [facility] Comment on above: Order Comment: Name Collection Type:: Clean-Voided Midstream Performed By: #### G LULS #### Point of Care testing , Specificy [place],Urine 1.012 Normal 1.001-1.030 [facility] Comment on above: Order Comment: Name Collection Type:: Clean-Voided Midstream Performed By: #### G LULS #### Point of Care testing , Squamous Epithelial Cell,Urine 0-1 Normal 0-2 [facility] Comment on above: Order Comment: Name Collection Type:: Clean-Voided Midstream Performed By: #### G LULS #### Point of Care testing , Urobilinogen,Urine Normal Normal Normal [facility] Comment on above: Order Comment: Name Collection Type:: Clean-Voided Midstream Performed By: #### G LULS #### Point of Care testing , WBC,Urine 5-9 High 0-4 [facility] Comment on above: Order Comment: Name Collection Type:: Clean-Voided Midstream Performed By: #### G LULS #### Point of Care testing , Glucose Poct Glucometerson 0 03-27-2022 Glucose [Mass/Vol] 164 mg/dL Normal [facility] Comment on above: Result Comment: [place] om Glucose Reference Range is dependent on time and content of last meal. Glucose of more than 200 mg/dL in a nonstressed, ambulatory subject supports the diagnosis of Diabetes Mellitus. PERFORMED BY: [place] [address] PATHOLOGIST ATHLETIC TRAINER GUIDO ELIZALDE M.D. Performed By: #### C BC, PT, PTT, CMP #### [place] [address] [place] Glucose [Mass/Vol] 222 mg/dL Normal [facility] Comment on above: Result Comment: [place] om Glucose Reference Range is dependent on time and content of last meal. Glucose of more than 200 mg/dL in a nonstressed, ambulatory subject supports the diagnosis of Diabetes Mellitus. PERFORMED BY: [place] [address] PATHOLOGIST ATHLETIC TRAINER GUIDO ELIZALDE M.D. Performed By: #### C BC, PT, PTT, CMP #### [facility] [address] [place] [address] Glucose [Mass/Vol] 256 mg/dL Normal [facility] Comment on above: Result Comment: [place] om Glucose Reference Range is dependent on time and content of last meal. Glucose of more than 200 mg/dL in a nonstressed, ambulatory subject supports the diagnosis of Diabetes Mellitus. PERFORMED BY: [place] [address] PATHOLOGIST ATHLETIC TRAINER GUIDO ELIZALDE M.D. Performed By: #### C BC, PT, PTT, CMP #### [facility] [address] [place] [address] [place] Glucose [Mass/Vol] 202 mg/dL Normal [facility] Comment on above: Result Comment: [place] om Glucose Reference Range is dependent on time and content of last meal. Glucose of more than 200 mg/dL in a nonstressed, ambulatory subject supports the diagnosis of Diabetes Mellitus. PERFORMED BY: [place] [address] PATHOLOGIST ATHLETIC TRAINER GUIDO ELIZALDE M.D. Performed By: #### C BC, PT, PTT, CMP #### [place] [id number] [facility] Ketones Auto test strip (U) [Mass/Vol]Ordered By: Kieran Scott on 03-27-2022 Ketones (U) [Mass/Vol] Negative Negative [facility] - UrinalysisOrder ed By: Kieran Scott on 03-27-2022 Hyaline casts LM Ql (Urine sed) None seen [LPF] 0-8 [facility] Nitrite Test strip Ql (U)Ord ered By: Kieran Scott on 03-27-2022 Nitrite Ql (U) Negative Negative [facility] Protein Auto test strip (U) [Mass/Vol]Ordered By: Kieran Scott on 03-27-2022 Protein (U) [Mass/Vol] Negative Negative [facility] Specific gravity Auto test s trip (U) [Rel density]Ordered By: Kieran Scott on 03-27-2022 Specific gravity (U) [Rel density] 1.012 1.001-1.030 [facility] Squamous epithelial cells de tection in urine sediment by light microscopyOrdered By: Kieran Scott on 03-27-2022 Epithelial cells.squamous LM Ql (Urine sed) 0-1 [HPF] 0-2 [facility] Urine Cultureon 03-27-2022 Bacteria identified Cx Nom (U) 75,000 colonies/ml mixed bacterial skin contaminants 2 Days PERFORMED BY: [place] [address] PATHOLOGIST ATHLETIC TRAINER GUIDO ELIZALDE M.D. Normal [facility] Comment on above: Performed By: #### G LULS #### Point of Care testing , Urine bacteria detection by automated methodOrdered By: Kieran Scott on 03-27-2022 Bacteria Auto Ql (U) None seen None Seen [facility] Urine clarity by refractomet ry automatedOrdered By: Kieran Scott on 03-27-2022 Clarity Refractometry automated (U) Clear Clear [facility] Urine culture routineOrdered By: Kieran Scott on 03-27-2022 Bacteria identified Cx Nom (U) 2 Days [facility] Urine glucose measurement by automated test strip (mass/volume)Ordered By: Kieran Scott on 03-27-2022 Glucose Auto test strip (U) [Mass/Vol] 500 mg/dL Normal [facility] Urine hemoglobin detection b y automated test stripOrdered By: Kieran Scott on 03-27-2022 Hemoglobin Auto test strip Ql (U) 2+ Negative [facility] Urine leukocyte esterase det ection by automated test stripOrdered By: Kieran Scott on 03-27-2022 Leukocyte esterase Auto test strip Ql (U) 2+ Negative [facility] Urobilinogen Auto test strip (U) [Mass/Vol]Ordered By: Kieran Scott on 03-27-2022 Urobilinogen (U) [Mass/Vol] Normal mg/dL Normal [facility] pH Auto test strip (U)Ordere d By: Kieran Scott on 03-27-2022 pH (U) 5.5 [pH] 5.0-9.0 [facility] Glucose Poct Glucometerson 0 03-26-2022 Commemt1 Glu2: Cleaned Meter [facility] Comment on above: Result Comment: PERF ORMED BY: [facility] [address] [facility] [place] [address] PATHOLOGIST ATHLETIC TRAINER GUIDO ELIZALDE M.D. Performed By: #### G LULS #### Point of Care testing , Glucose [Mass/Vol] 263 mg/dL Normal [facility] Comment on above: Result Comment: [facility] Glucose Reference Range is dependent on time and content of last meal. Glucose of more than 200 mg/dL in a nonstressed, ambulatory subject supports the diagnosis of Diabetes Mellitus. Performed By: #### G LULS #### Point of Care testing , Commemt1 Glu2: Cleaned Meter [facility] Comment on above: Result Comment: PERF ORMED BY: [facility] [address] [place] [address] PATHOLOGIST ATHLETIC TRAINER GUIDO ELIZALDE M.D. Performed By: #### C BC, PT, PTT, CMP #### [address] Glucose [Mass/Vol] 232 mg/dL Normal [facility] Comment on above: Result Comment: [place] om Glucose Reference Range is dependent on time and content of last meal. Glucose of more than 200 mg/dL in a nonstressed, ambulatory subject supports the diagnosis of Diabetes Mellitus. Performed By: #### C BC, PT, PTT, CMP #### [address] Commemt1 Glu2: Cleaned Meter [facility] Comment on above: Result Comment: PERF ORMED BY: [place] [address] PATHOLOGIST ATHLETIC TRAINER GUIDO ELIZALDE M.D. Performed By: #### C BC, PT, PTT, CMP #### [place] [address] [place] Glucose [Mass/Vol] 283 mg/dL Normal [facility] Comment on above: Result Comment: [place] om Glucose Reference Range is dependent on time and content of last meal. Glucose of more than 200 mg/dL in a nonstressed, ambulatory subject supports the diagnosis of Diabetes Mellitus. Performed By: #### C BC, PT, PTT, CMP #### [address] Commemt1 Glu2: Cleaned Meter [facility] Comment on above: Result Comment: PERF ORMED BY: [place] [address] PATHOLOGIST ATHLETIC TRAINER GUIDO ELIZALDE M.D. Performed By: #### C BC, PT, PTT, CMP #### [address] Glucose [Mass/Vol] 191 mg/dL Normal [facility] Comment on above: Result Comment: [place] om Glucose Reference Range is dependent on time and content of last meal. Glucose of more than 200 mg/dL in a nonstressed, ambulatory subject supports the diagnosis of Diabetes Mellitus. Performed By: #### C BC, PT, PTT, CMP #### [facility] [address] [place] [address] [place] Dipstick and Microscopicon 0 03-25-2022 Appearance (U) Clear Normal Clear [facility] Comment on above: Order Comment: Name Collection Type:: Claire Catheter Performed By: #### C BC, PT, PTT, CMP #### [facility] [address] [place] [address] [place] Bacteria,Urine None Seen Normal None Seen [facility] Comment on above: Order Comment: Name Collection Type:: Claire Catheter Performed By: #### C BC, PT, PTT, CMP #### [place] [address] [place] Bilirubin,Urine Negative Normal Negative [facility] Comment on above: Order Comment: Name Collection Type:: Claire Catheter Performed By: #### C BC, PT, PTT, CMP #### [address] Color (U) Yellow Normal Yellow [facility] Comment on above: Order Comment: Name Collection Type:: Claire Catheter Performed By: #### C BC, PT, PTT, CMP #### [place] [address] [place] Glucose Ql (U) Normal Normal Normal [facility] Comment on above: Order Comment: Name Collection Type:: Claire Catheter Performed By: #### C BC, PT, PTT, CMP #### [place] [address] [place] Hyaline Casts,Urine 0-8 Normal 0-8 [facility] Comment on above: Order Comment: Name Collection Type:: Claire Catheter Result Comment: PERF ORMED BY: [place] [address] PATHOLOGIST ATHLETIC TRAINER GUIDO ELIZALDE M.D. Performed By: #### C BC, PT, PTT, CMP #### [facility] [address] [place] [address] [place] Ketones Ql (U) Negative Normal Negative [facility] Comment on above: Order Comment: Name Collection Type:: Claire Catheter Performed By: #### C BC, PT, PTT, CMP #### [facility] [address] Leukocyte esterase Test strip Ql (U) 3+ High Negative [facility] Comment on above: Order Comment: Name Collection Type:: Claire Catheter Performed By: #### C BC, PT, PTT, CMP #### [facility] [address] [place] [address] [place] Nitrite,Urine Negative Normal Negative [facility] Comment on above: Order Comment: Name Collection Type:: Claire Catheter Performed By: #### C BC, PT, PTT, CMP #### [address] Occult Blood,Urine 3+ High Negative [facility] Comment on above: Order Comment: Name Collection Type:: Claire Catheter Result Comment: PERF ORMED BY: [place] [address] PATHOLOGIST ATHLETIC TRAINER GUIDO ELIZALDE M.D. Performed By: #### C BC, PT, PTT, CMP #### [facility] [address] [place] [address] [place] pH (U) 6.0 [pH] Normal 5.0-9.0 [facility] Comment on above: Order Comment: Name Collection Type:: Claire Catheter Performed By: #### C BC, PT, PTT, CMP #### [facility] [address] [place] [address] [place] Protein (U) [Mass/Vol] 30 mg/dL High Negative [facility] Comment on above: Order Comment: Name Collection Type:: Claire Catheter Performed By: #### C BC, PT, PTT, CMP #### [place] [address] [place] RBC,Urine Innumerable High 0-4 [facility] Comment on above: Order Comment: Name Collection Type:: Claire Catheter Performed By: #### C BC, PT, PTT, CMP #### [address] Specificy [place],Urine 1.024 Normal 1.001-1.030 [facility] Comment on above: Order Comment: Name Collection Type:: Claire Catheter Performed By: #### C BC, PT, PTT, CMP #### [address] Squamous Epithelial Cell,Urine 0-1 Normal 0-2 [facility] Comment on above: Order Comment: Name Collection Type:: Claire Catheter Performed By: #### C BC, PT, PTT, CMP #### [address] Urobilinogen,Urine Normal Normal Normal [facility] Comment on above: Order Comment: Name Collection Type:: Claire Catheter Performed By: #### C BC, PT, PTT, CMP #### [address] WBC,Urine 20-49 High 0-4 [facility] Comment on above: Order Comment: Name Collection Type:: Claire Catheter Performed By: #### C BC, PT, PTT, CMP #### [address] Glucose Poct Glucometerson 0 03-25-2022 Glucose [Mass/Vol] 267 mg/dL Normal [facility] Comment on above: Result Comment: [facility] Glucose Reference Range is dependent on time and content of last meal. Glucose of more than 200 mg/dL in a nonstressed, ambulatory subject supports the diagnosis of Diabetes Mellitus. PERFORMED BY: [place] [address] PATHOLOGIST ATHLETIC TRAINER GUIDO ELIZALDE M.D. Performed By: #### C BC, PT, PTT, CMP #### [address] Commemt1 Glu2: Cleaned Meter Normal [facility] Comment on above: Result Comment: PERF ORMED BY: [address] [place] [address] PATHOLOGIST ATHLETIC TRAINER GUIDO ELIZALDE M.D. Performed By: #### C BC, PT, PTT, CMP #### [address] Glucose [Mass/Vol] 190 mg/dL Normal [facility] Comment on above: Result Comment: [place] Glucose Reference Range is dependent on time and content of last meal. Glucose of more than 200 mg/dL in a nonstressed, ambulatory subject supports the diagnosis of Diabetes Mellitus. Performed By: #### C BC, PT, PTT, CMP #### [address] Commemt1 Glu2: Cleaned Meter [facility] Comment on above: Result Comment: PERF ORMED BY: [place] [address] PATHOLOGIST ATHLETIC TRAINER GUIDO ELIZALDE M.D. Performed By: #### C BC, PT, PTT, CMP #### [address] Glucose [Mass/Vol] 192 mg/dL Normal [facility] Comment on above: Result Comment: [place] om Glucose Reference Range is dependent on time and content of last meal. Glucose of more than 200 mg/dL in a nonstressed, ambulatory subject supports the diagnosis of Diabetes Mellitus. Performed By: #### C BC, PT, PTT, CMP #### [facility] [address] [place] [address] Commemt1 Glu2: Cleaned Meter [facility] Comment on above: Result Comment: PERF ORMED BY: [place] [address] PATHOLOGIST ATHLETIC TRAINER GUIDO ELIZALDE M.D. Performed By: #### C BC, PT, PTT, CMP #### [address] Glucose [Mass/Vol] 146 mg/dL Normal [facility] Comment on above: Result Comment: [place] om Glucose Reference Range is dependent on time and content of last meal. Glucose of more than 200 mg/dL in a nonstressed, ambulatory subject supports the diagnosis of Diabetes Mellitus. Performed By: #### C BC, PT, PTT, CMP #### [address] Urine Cultureon 03-25-2022 Bacteria identified Cx Nom (U) Urine Culture Results 75,000 colonies/ml Mixed Bacterial Skin Contaminants 2 Days PERFORMED BY: [place] [address] PATHOLOGIST ATHLETIC TRAINER GUIDO ELIZALDE M.D. [facility] Comment on above: Performed By: #### C BC, PT, PTT, CMP #### [address] Basic Metabolic Panelon 03-09 Calcium [Mass/Vol] 9.0 mg/dL Normal 8.2-10.2 [facility] Comment on above: Performed By: #### C BC, PT, PTT, CMP #### [address] Chloride [Moles/Vol] 102 mmol/L Normal 95-114 [facility] Comment on above: Performed By: #### C BC, PT, PTT, CMP #### [address] CO2 [Moles/Vol] 24.3 mmol/L Normal 22.0-30.0 [facility] Comment on above: Performed By: #### C BC, PT, PTT, CMP #### [address] Creatinine [Mass/Vol] 1.00 mg/dL Normal 0.44-1.03 [facility] Comment on above: Performed By: #### C BC, PT, PTT, CMP #### [address] Creatinine Clr Calc Pharmacy 42.78 [facility] Comment on above: Result Comment: PERF ORMED BY: [place] [address] PATHOLOGIST ATHLETIC TRAINER GUIDO ELIZALDE M.D. Performed By: #### C BC, PT, PTT, CMP #### [address] Estimated GFR ( Froylan > 60 [facility] Comment on above: Result Comment: GFR estimated reference range: According to KDOQI guidelines, <60 ml/min/1.73m2 is sufficient to diagnose a patient with chronic kidney disease. Performed By: #### C BC, PT, PTT, CMP #### [address] Estimated GFR (Non- Am 53 [facility] Comment on above: Performed By: #### C BC, PT, PTT, CMP #### [address] Glucose [Mass/Vol] 351 mg/dL High 70-100 [facility] Comment on above: Result Comment: [place] om Glucose Reference Range is dependent on time and content of last meal. Glucose of more than 200 mg/dL in a nonstressed, ambulatory subject supports the diagnosis of Diabetes Mellitus. ADA recommended reference range Performed By: #### C BC, PT, PTT, CMP #### [address] Potassium [Moles/Vol] 4.6 mmol/L Normal 3.5-5.1 [facility] Comment on above: Performed By: #### C BC, PT, PTT, CMP #### [address] Sodium [Moles/Vol] 137 mmol/L Normal 136-146 [facility] Comment on above: Performed By: #### C BC, PT, PTT, CMP #### [address] Urea nitrogen [Mass/Vol] 30 mg/dL High 9-23 [facility] Comment on above: Performed By: #### C BC, PT, PTT, CMP #### [address] [facility] SARS-CoV-2 (COVID-19) RNA HARMONY+probe Ql (Unsp spec) Negative Normal Negative [facility] Comment on above: Order Comment: 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 This test has not been FDA [...] is terminated or revoked sooner. PERFORMED BY: [address] [address] PATHOLOGIST ATHLETIC TRAINER GUIDO ELIZALDE M.D. Performed By: #### G INOCENTE #### Point of Care testing , COVID-19 Positive/NegativeOr dered By: Howard Stauffer on 03-24-2022 SARS-CoV-2 (COVID-19) N gene HARMONY+probe Ql (Resp) Negative Negative [facility] Comment on above: Testing for SARS-CoV -2 by RT-PCR This test was developed and its performance characteristics determined by [employer] and validated at the [facility]. This test has not been FDA [...] [#/Vol] 0.0 10*3/uL Normal 0.0-0.2 [facility] Comment on above: Result Comment: PERF ORMED BY: [place] [address] PATHOLOGIST ATHLETIC TRAINER GUIDO ELIZALDE M.D. Performed By: #### C BC, PT, PTT, CMP #### [facility] [address] [place] [address] Basophils/100 WBC (Bld) 0.1 % Normal . [facility] Comment on above: Performed By: #### C BC, PT, PTT, CMP #### [facility] [address] [place] [address] Eosinophils (Bld) [#/Vol] 0.0 10*3/uL Normal 0.0-0.45 [facility] Comment on above: Performed By: #### C BC, PT, PTT, CMP #### [address] Eosinophils/100 WBC (Bld) 0.0 % Normal . [facility] Comment on above: Performed By: #### C BC, PT, PTT, CMP #### [facility] [address] [place] [address] Erythrocyte distribution width (RBC) [Ratio] 13.5 % Normal 11.9-15.3 [facility] Comment on above: Performed By: #### C BC, PT, PTT, CMP #### [facility] [address] [place] [address] Hematocrit (Bld) [Volume fraction] 41.1 % Normal 34.0-46.4 [facility] Comment on above: Performed By: #### C BC, PT, PTT, CMP #### [address] Hemoglobin (Bld) [Mass/Vol] 13.5 g/dL Normal 11.8-15.4 [facility] Comment on above: Performed By: #### C BC, PT, PTT, CMP #### [address] Lymphocytes (Bld) [#/Vol] 0.8 10*3/uL Low 1.00-4.8 [facility] Comment on above: Performed By: #### C BC, PT, PTT, CMP #### [address] Lymphocytes/100 WBC (Bld) 11.1 % Normal . [facility] Comment on above: Performed By: #### C BC, PT, PTT, CMP #### [address] MCH (RBC) [Entitic mass] 30.0 pg Normal 24.7-34.3 [facility] Comment on above: Performed By: #### C BC, PT, PTT, CMP #### [address] MCV (RBC) [Entitic vol] 91.0 fL Normal 80-100 [facility] Comment on above: Performed By: #### C BC, PT, PTT, CMP #### [address] Mean Corpuscular HGB Conc 33.0 g/dL Normal 32.0-35.0 [facility] Comment on above: Performed By: #### C BC, PT, PTT, CMP #### [address] Monocytes (Bld) [#/Vol] 0.1 10*3/uL Normal 0.0-0.8 [facility] Comment on above: Performed By: #### C BC, PT, PTT, CMP #### [address] Monocytes/100 WBC (Bld) 0.8 % Normal . [facility] Comment on above: Performed By: #### C BC, PT, PTT, CMP #### [facility] [address] [place] [address] [place] Neutrophils (Bld) [#/Vol] 6.6 10*3/uL Normal 1.8-7.7 [facility] Comment on above: Performed By: #### C BC, PT, PTT, CMP #### [facility] [address] Neutrophils/100 WBC (Bld) 88.0 % Normal . [facility] Comment on above: Performed By: #### C BC, PT, PTT, CMP #### [facility] [address] Nucleated RBC/100 WBC (Bld) [Ratio] 0.0 % Normal 0-0.5 [facility] Comment on above: Performed By: #### C BC, PT, PTT, CMP #### [facility] [address] [place] [address] [place] Platelet mean volume (Bld) [Entitic vol] 8.1 fL Normal 6.3-10.7 [facility] Comment on above: Performed By: #### C BC, PT, PTT, CMP #### [facility] [address] [place] [address] [place] Platelets (Bld) [#/Vol] 252 10*3/uL Normal 150-450 [facility] Comment on above: Performed By: #### C BC, PT, PTT, CMP #### [facility] [address] [place] [address] [place] RBC (Bld) [#/Vol] 4.52 10*6/uL Normal 3.60-5.00 [facility] Comment on above: Performed By: #### C BC, PT, PTT, CMP #### [facility] [address] [place] [address] [place] WBC (Bld) [#/Vol] 7.5 10*3/uL Normal 4.5-11.0 [facility] Comment on above: Performed By: #### C BC, PT, PTT, CMP #### [facility] [address] [place] [address] [place] Glucose Glucometer (dC) [M ass/Vol]Ordered By: Perlita Gautam on 03-24-2022 Glucose [Mass/Vol] 218 mg/dL [facility] Comment on above: Random Glucose Refer ence Range is dependent on time and content of last meal. Glucose of more than 200 mg/dL in a nonstressed, ambulatory subject supports the diagnosis of Diabetes Mellitus. Glucose Poct Glucometerson 0 03-24-2022 Glucose [Mass/Vol] 224 mg/dL Normal [facility] Comment on above: Result Comment: [place] om Glucose Reference Range is dependent on time and content of last meal. Glucose of more than 200 mg/dL in a nonstressed, ambulatory subject supports the diagnosis of Diabetes Mellitus. PERFORMED BY: [place] [address] PATHOLOGIST ATHLETIC TRAINER GUIDO ELIZALDE M.D. Performed By: #### C BC, PT, PTT, CMP #### [address] Commemt1 Glu2: Cleaned Meter [facility] Comment on above: Result Comment: PERF ORMED BY: [facility] [address] [place] [address] PATHOLOGIST ATHLETIC TRAINER GUIDO ELIZALDE M.D. Performed By: #### C BC, PT, PTT, CMP #### [facility] [address] Glucose [Mass/Vol] 306 mg/dL Normal [facility] Comment on above: Result Comment: [place] om Glucose Reference Range is dependent on time and content of last meal. Glucose of more than 200 mg/dL in a nonstressed, ambulatory subject supports the diagnosis of Diabetes Mellitus. Performed By: #### C BC, PT, PTT, CMP #### [facility] [address] Commemt1 Glu2: Cleaned Meter [facility] Comment on above: Result Comment: PERF ORMED BY: [place] [address] PATHOLOGIST ATHLETIC TRAINER GUIDO ELIZALDE M.D. Performed By: #### C BC, PT, PTT, CMP #### [place] [address] [place] Glucose [Mass/Vol] 392 mg/dL Normal [facility] Comment on above: Result Comment: [place] om Glucose Reference Range is dependent on time and content of last meal. Glucose of more than 200 mg/dL in a nonstressed, ambulatory subject supports the diagnosis of Diabetes Mellitus. Performed By: #### C BC, PT, PTT, CMP #### [address] Glucose [Mass/Vol] 277 mg/dL Normal [facility] Comment on above: Result Comment: [place] om Glucose Reference Range is dependent on time and content of last meal. Glucose of more than 200 mg/dL in a nonstressed, ambulatory subject supports the diagnosis of Diabetes Mellitus. PERFORMED BY: [place] [address] PATHOLOGIST ATHLETIC TRAINER GUIDO ELIZALDE M.D. Performed By: #### C BC, PT, PTT, CMP #### [address] Glucose [Mass/Vol] 218 mg/dL Normal [facility] Comment on above: Result Comment: [place] om Glucose Reference Range is dependent on time and content of last meal. Glucose of more than 200 mg/dL in a nonstressed, ambulatory subject supports the diagnosis of Diabetes Mellitus. PERFORMED BY: [place] [address] PATHOLOGIST ATHLETIC TRAINER GUIDO ELIZALDE M.D. Performed By: #### C BC, PT, PTT, CMP #### [address] Laboratory - Microbiology an d Antimicrobial susceptibilityOrdered By: Howard Stauffer on 03-24-2022 SARS-CoV-2 (COVID-19) RNA HARMONY+probe Ql (Unsp spec) N/A [facility] Activated partial thrombopla stin time (aPTT) in platelet poor plasma by coagulation aOrdered By: Howard Stauffer on 03-23-2022 aPTT Coag (PPP) [Time] 32.2 s 25.1-36.5 [facility] Albumin [Mass/volume] in Ser um or PlasmaOrdered By: Howard Stauffer on 03-23-2022 Albumin [Mass/Vol] 3.6 g/dL 3.2-5.5 [facility] Basophils Auto (Bld) [#/Vol] Ordered By: Howard Stauffer on 03-23-2022 Basophils (Bld) [#/Vol] 0.1 10*3/uL 0.0-0.2 [facility] Basophils/100 WBC Auto (Bld) Ordered By: Howard Stauffer on 03-23-2022 Basophils/100 WBC (Bld) 0.6 % F [facility] Bilirubin Test strip Ql (U)O rdered By: Howard Stauffer on 03-23-2022 Bilirubin Ql (U) Negative Negative [facility] Blood hemoglobin measurement (mass/volume)Ordered By: Howard Stauffer on 03-23-2022 Hemoglobin (Bld) [Mass/Vol] 14.3 g/dL 11.8-15.4 [facility] Blood leukocytes automated c ount (number/volume)Ordered By: Howard Stauffer on 03-23-2022 WBC (Bld) [#/Vol] 8.6 10*3/uL 4.5-11.0 [facility] COVID-19 Antigenon COVID-19 Antigen Healthcare Worker?: [...] developed and its performance characteristic determined by [employer] and validated at [facility]. This test has not been FDA [...] for SARS Antigen by [employer] PERFORMED BY: [place] [address] PATHOLOGIST ATHLETIC TRAINER GUIDO ELIZALDE M.D. Normal [facility] Comment on above: Performed By: #### C BC, PT, PTT, CMP #### [address] COVID-19 SOFIAOrdered By: Jed Stauffer on 03-23-2022 SARS-CoV+SARS-CoV-2 (COVID-19) Ag IA.rapid Ql (Resp) Negative Negative [facility] Comment on above: This is a duplicate Cecily SARS Antigen (DRAKE) result to be used for statistical tracking purpose only. Color Auto (U)Ordered By: Jed Stauffer on 03-23-2022 Color (U) Yellow Yellow [facility] Complete Blood Count Auto Di ffon 03-23-2022 Basophils (Bld) [#/Vol] 0.1 10*3/uL Normal 0.0-0.2 [facility] Comment on above: Result Comment: PERF ORMED BY: [place] [address] PATHOLOGIST ATHLETIC TRAINER GUIDO ELIZALDE M.D. Performed By: #### C BC, PT, PTT, CMP #### [address] Basophils/100 WBC (Bld) 0.6 % Normal . [facility] Comment on above: Performed By: #### C BC, PT, PTT, CMP #### [address] Eosinophils (Bld) [#/Vol] 0.2 10*3/uL Normal 0.0-0.45 [facility] Comment on above: Performed By: #### C BC, PT, PTT, CMP #### [address] Eosinophils/100 WBC (Bld) 2.3 % Normal . [facility] Comment on above: Performed By: #### C BC, PT, PTT, CMP #### [address] Erythrocyte distribution width (RBC) [Ratio] 13.8 % Normal 11.9-15.3 [facility] Comment on above: Performed By: #### C BC, PT, PTT, CMP #### [address] Hematocrit (Bld) [Volume fraction] 43.4 % Normal 34.0-46.4 [facility] Comment on above: Performed By: #### C BC, PT, PTT, CMP #### [address] Hemoglobin (Bld) [Mass/Vol] 14.3 g/dL Normal 11.8-15.4 [facility] Comment on above: Performed By: #### C BC, PT, PTT, CMP #### [address] Lymphocytes (Bld) [#/Vol] 3.3 10*3/uL Normal 1.00-4.8 [facility] Comment on above: Performed By: #### C BC, PT, PTT, CMP #### [facility] [address] [place] [address] [place] Lymphocytes/100 WBC (Bld) 38.7 % Normal . [facility] Comment on above: Performed By: #### C BC, PT, PTT, CMP #### [facility] [address] [place] [address] [place] MCH (RBC) [Entitic mass] 29.9 pg Normal 24.7-34.3 [facility] Comment on above: Performed By: #### C BC, PT, PTT, CMP #### [facility] [address] MCV (RBC) [Entitic vol] 91.0 fL Normal 80-100 F [facility] Comment on above: Performed By: #### C BC, PT, PTT, CMP #### [address] Mean Corpuscular HGB Conc 32.9 g/dL Normal 32.0-35.0 [facility] Comment on above: Performed By: #### C BC, PT, PTT, CMP #### [facility] [address] [place] [address] [place] Monocytes (Bld) [#/Vol] 0.8 10*3/uL Normal 0.0-0.8 [facility] Comment on above: Performed By: #### C BC, PT, PTT, CMP #### [place] [address] [place] Monocytes/100 WBC (Bld) 9.2 % Normal . [facility] Comment on above: Performed By: #### C BC, PT, PTT, CMP #### [facility] [address] [place] [address] [place] Neutrophils (Bld) [#/Vol] 4.2 10*3/uL Normal 1.8-7.7 [facility] Comment on above: Performed By: #### C BC, PT, PTT, CMP #### [place] [address] [place] Neutrophils/100 WBC (Bld) 49.2 % Normal . [facility] Comment on above: Performed By: #### C BC, PT, PTT, CMP #### [address] Nucleated RBC/100 WBC (Bld) [Ratio] 0.0 % Normal 0-0.5 [facility] Comment on above: Performed By: #### C BC, PT, PTT, CMP #### [address] Platelet mean volume (Bld) [Entitic vol] 7.8 fL Normal 6.3-10.7 [facility] Comment on above: Performed By: #### C BC, PT, PTT, CMP #### [address] Platelets (Bld) [#/Vol] 295 10*3/uL Normal 150-450 [facility] Comment on above: Performed By: #### C BC, PT, PTT, CMP #### [address] RBC (Bld) [#/Vol] 4.77 10*6/uL Normal 3.60-5.00 [facility] Comment on above: Performed By: #### C BC, PT, PTT, CMP #### [address] WBC (Bld) [#/Vol] 8.6 10*3/uL Normal 4.5-11.0 [facility] Comment on above: Performed By: #### C BC, PT, PTT, CMP #### [address] Comprehensive Metabolic Pane sadiq 03-23-2022 Albumin [Mass/Vol] 3.6 g/dL Normal 3.2-5.5 [facility] Comment on above: Performed By: #### C BC, PT, PTT, CMP #### [address] Albumin/Globulin [Mass ratio] 1.1 {ratio} Normal [facility] Comment on above: Performed By: #### C BC, PT, PTT, CMP #### [facility] [address] [place] [address] [place] ALP [Catalytic activity/Vol] 48 U/L Normal 32-92 [facility] Comment on above: Performed By: #### C BC, PT, PTT, CMP #### [facility] [address] [place] [address] [place] ALT [Catalytic activity/Vol] 18 U/L Normal 10-60 [facility] Comment on above: Performed By: #### C BC, PT, PTT, CMP #### [facility] [address] AST [Catalytic activity/Vol] 22 U/L Normal 10-42 [facility] Comment on above: Performed By: #### C BC, PT, PTT, CMP #### [facility] [address] Bilirubin [Mass/Vol] 0.6 mg/dL Normal 0.3-1.2 [facility] Comment on above: Performed By: #### C BC, PT, PTT, CMP #### [facility] [address] [place] [address] [place] Calcium [Mass/Vol] 9.6 mg/dL Normal 8.2-10.2 [facility] Comment on above: Performed By: #### C BC, PT, PTT, CMP #### [facility] [address] [place] [address] [place] Chloride [Moles/Vol] 103 mmol/L Normal 95-114 [facility] Comment on above: Performed By: #### C BC, PT, PTT, CMP #### [facility] [address] [place] [address] [place] CO2 [Moles/Vol] 27.4 mmol/L Normal 22.0-30.0 [facility] Comment on above: Performed By: #### C BC, PT, PTT, CMP #### [facility] [address] [place] [address] [place] Creatinine [Mass/Vol] 0.92 mg/dL Normal 0.44-1.03 [facility] Comment on above: Performed By: #### C BC, PT, PTT, CMP #### [address] Creatinine Clr Calc Pharmacy 46.80 [facility] Comment on above: Result Comment: PERF ORMED BY: [place] [address] PATHOLOGIST ATHLETIC TRAINER GUIDO ELIZALDE M.D. Performed By: #### C BC, PT, PTT, CMP #### [address] Estimated GFR ( Froylan > 60 [facility] Comment on above: Result Comment: GFR estimated reference range: According to KDOQI guidelines, <60 ml/min/1.73m2 is sufficient to diagnose a patient with chronic kidney disease. Performed By: #### C BC, PT, PTT, CMP #### [address] Estimated GFR (Non- Am 59 [facility] Comment on above: Performed By: #### C BC, PT, PTT, CMP #### [address] Globulin (S) [Mass/Vol] 3.2 g/dL Normal [facility] Comment on above: Performed By: #### C BC, PT, PTT, CMP #### [address] Glucose [Mass/Vol] 114 mg/dL High 70-100 [facility] Comment on above: Result Comment: [place] Glucose Reference Range is dependent on time and content of last meal. Glucose of more than 200 mg/dL in a nonstressed, ambulatory subject supports the diagnosis of Diabetes Mellitus. ADA recommended reference range Performed By: #### C BC, PT, PTT, CMP #### [address] Potassium [Moles/Vol] 4.4 mmol/L Normal 3.5-5.1 [facility] Comment on above: Performed By: #### C BC, PT, PTT, CMP #### [place] [address] [place] Protein [Mass/Vol] 6.8 g/dL Normal 6.1-7.9 [facility] Comment on above: Performed By: #### C BC, PT, PTT, CMP #### [facility] [address] Sodium [Moles/Vol] 141 mmol/L Normal 136-146 [facility] Comment on above: Performed By: #### C BC, PT, PTT, CMP #### [facility] [address] Urea nitrogen [Mass/Vol] 24 mg/dL High 9- [facility] Comment on above: Performed By: #### C BC, PT, PTT, CMP #### [facility] [address] Creatinine and Glomerular fi ltration rate.predicted panel (S/P/Bld)Ordered By: Howard Stauffer on 03-23-2022 Creatinine [Mass/Vol] 0.92 mg/dL 0.44-1.03 [facility] ECG 12 lead ECGon 03-23-2022 ECG 12 lead ECG [facility] [address] [place] [address] [place] [address] Electrocardiograph Report Signed Patient: Saeed Sarabia MR#: [id number] : 1940 Acct:[id number] Age/Sex: 81 / F ADM Date: 03/24/22 Loc: Room: [address] [place] [address] Type: DIS INOo Attending Dr: Rupert Anthony MD Ordering Provider: Howard Stauffre DO Date of Service: 03/23/22 ECG/ECG 12 [...] is no longer present Confirmed by Howard Stauffer DO ([id number]) on 03/24/2022 2:06:42 AM Referred By: Electronically Signed By:Howard Stauffer DO Transcribed By: MUS Signed By Howard Stauffer DO 03/24 0206 Normal [facility] Eosinophils Auto (Bld) [#/Vo l]Ordered By: Howard Stauffer on 03-23-2022 Eosinophils (Bld) [#/Vol] 0.2 10*3/uL 0.0-0.45 [facility] Eosinophils/100 WBC Auto (Bl d)Ordered By: Howard Stauffer on 03-23-2022 Eosinophils/100 WBC (Bld) 2.3 % [facility] Erythrocyte distribution wid th Auto (RBC) [Ratio]Ordered By: Howard Stauffer on 03-23-2022 Erythrocyte distribution width (RBC) [Ratio] 13.8 % 11.9-15.3 [facility] Estimated glomerular filtrat ion rate (GFR) non- AmericanOrdered By: Howard Stauffer on 03-23-2022 GFR/1.73 sq M.predicted among non-blacks MDRD (S/P/Bld) [Vol rate/Area] 59 mL/Min [facility] Globulin Calc (S) [Mass/Vol] Ordered By: Howard Stauffer on 03-23-2022 Globulin (S) [Mass/Vol] 3.2 g/dL F [facility] Hematocrit Auto (Bld) [Volum e fraction]Ordered By: Howard Stauffer on 03-23-2022 Hematocrit (Bld) [Volume fraction] 43.4 % 34.0-46.4 [facility] Ketones Auto test strip (U) [Mass/Vol]Ordered By: Howard Stauffer on 03-23-2022 Ketones (U) [Mass/Vol] Trace Negative Fi [facility]formerly [facility] Laboratory - CoagulationOrde red By: Howard Stauffer on 03-23-2022 PT Coag (PPP) [Time] 15.7 s 9.0-12.9 [facility] Laboratory - Hematology and Cell countsOrdered By: Howard Stauffer on 03-23-2022 Nucleated RBC/100 WBC (Bld) [Ratio] 0.0 % 0-0.5 [facility] Lymphocytes Auto (Bld) [#/Vo l]Ordered By: Howard Stauffer on 03-23-2022 Lymphocytes (Bld) [#/Vol] 3.3 10*3/uL 1.00-4.8 [facility] Lymphocytes/100 WBC Auto (Bl d)Ordered By: Howard Stauffer on 03-23-2022 Lymphocytes/100 WBC (Bld) 38.7 % [facility] MCH Auto (RBC) [Entitic mass ]Ordered By: Howard Stauffer on 03-23-2022 MCH (RBC) [Entitic mass] 29.9 pg 24.7-34.3 [facility] MCHC Auto (RBC) [Mass/Vol]Or dered By: Howard Stauffer on 03-23-2022 MCHC (RBC) [Mass/Vol] 32.9 g/dL 32.0-35.0 [facility] MCV Auto (RBC) [Entitic vol] Ordered By: Howard Stauffer on 03-23-2022 MCV (RBC) [Entitic vol] 91.0 fL 80-100 F [facility] Monocytes Auto (Bld) [#/Vol] Ordered By: Howard Stauffer on 03-23-2022 Monocytes (Bld) [#/Vol] 0.8 10*3/uL 0.0-0.8 [facility] Monocytes/100 WBC Auto (Bld) Ordered By: Howard Stauffer on 03-23-2022 Monocytes/100 WBC (Bld) 9.2 % F [facility] Neutrophils Auto (Bld) [#/Vo l]Ordered By: Howard Stauffer on 03-23-2022 Neutrophils (Bld) [#/Vol] 4.2 10*3/uL 1.8-7.7 [facility] Neutrophils/100 WBC Auto (Bl d)Ordered By: Howard Stauffer on 03-23-2022 Neutrophils/100 WBC (Bld) 49.2 % [facility] Nitrite Test strip Ql (U)Ord ered By: Howard Stauffer on 03-23-2022 Nitrite Ql (U) Negative Negative [facility] No Panel InformationOrdered By: Howard Stauffer on 03-23-2022 Estimated GFR () > 60 mL/Min [facility] Comment on above: GFR estimated refere nce range: According to KDOQI guidelines, <60 ml/min/1.73m2 is sufficient to diagnose a patient with chronic kidney disease. Pharmacy Creatinine Clearance (Chem 46.80 [facility] SARS Antigen (LFIA) [facility] SARS Antigen (LFIA) [facility] Partial Thromboplastin Timeo n 03-23-2022 aPTT Coag (Bld) [Time] 32.2 s Normal 25.1-36.5 [facility] Comment on above: Result Comment: PERF ORMED BY: [place] [address] PATHOLOGIST ATHLETIC TRAINER GUIDO ELIZALDE M.D. Performed By: #### C BC, PT, PTT, CMP #### [address] Platelet mean volume Auto (B ld) [Entitic vol]Ordered By: Howard Stauffer on 03-23-2022 Platelet mean volume (Bld) [Entitic vol] 7.8 fL 6.3-10.7 [facility] Platelet poor plasma interna tional normalized ratio (INR) by coagulation assay (relatOrdered By: Howard Stauffer on 03-23-2022 INR Coag (PPP) [Relative time] 1.4 {INR} [facility] Comment on above: INR Therapeutic Rang [...] Platelets Auto (Bld) [#/Vol] Ordered By: Howard Stauffer on 03-23-2022 Platelets (Bld) [#/Vol] 295 10*3/uL 150-450 [facility] Protein Auto test strip (U) [Mass/Vol]Ordered By: Howard Stauffer on 03-23-2022 Protein (U) [Mass/Vol] Negative Negative [facility] Protein [Mass/volume] in Ser um or PlasmaOrdered By: Howard Stauffer on 03-23-2022 Protein [Mass/Vol] 6.8 g/dL 6.1-7.9 [facility] Prothrombin Time INRon 03-23 INR Coag (PPP) [Relative time] 1.4 {INR} Normal [facility] Comment on above: Result Comment: INR [...] #### C BC, PT, PTT, CMP #### [facility] [address] PT Coag (PPP) [Time] 15.7 s High 9.0-12.9 [facility] Comment on above: Performed By: #### C BC, PT, PTT, CMP #### [facility] [address] RBC Auto (Bld) [#/Vol]Ordere d By: Howard Stauffer on 03-23-2022 RBC (Bld) [#/Vol] 4.77 10*6/uL 3.60-5.00 [facility] Serum or plasma alanine [place] otransferase measurement without P-5'-P (enzymatic activiOrdered By: Howard Stauffer on 03-23-2022 ALT No additional P-5'-P [Catalytic activity/Vol] 18 U/L 10-60 [facility] Serum or plasma albumin/glob ulin mass ratioOrdered By: Howard Stauffer on 03-23-2022 Albumin/Globulin [Mass ratio] 1.1 {ratio} [facility] Serum or plasma alkaline dolly sphatase measurement (enzymatic activity/volume)Ordered By: Howard Stauffer on 03-23-2022 ALP [Catalytic activity/Vol] 48 U/L 32-92 [facility] Serum or plasma aspartate am inotransferase measurement (enzymatic activity/volume)Ordered By: Howard Stauffer on 03-23-2022 AST [Catalytic activity/Vol] 22 U/L 10-42 [facility] Serum or plasma calcium nakul urement (mass/volume)Ordered By: Howard Stauffer on 03-23-2022 Calcium [Mass/Vol] 9.6 mg/dL 8.2-10.2 [facility] Serum or plasma chloride juliana surement (moles/volume)Ordered By: Howard Stauffer on 03-23-2022 Chloride [Moles/Vol] 103 mmol/L 95-114 [facility] Serum or plasma glucose nakul urement (mass/volume)Ordered By: Howard Stauffer on 03-23-2022 Glucose [Mass/Vol] 114 mg/dL 70-100 [facility] Comment on above: ADA recommended refe rence range Random Glucose Reference Range is dependent on time and content of last meal. Glucose of more than 200 mg/dL in a nonstressed, ambulatory subject supports the diagnosis of Diabetes Mellitus. Serum or plasma potassium me asurement (moles/volume)Ordered By: Howard Stauffer on 03-23-2022 Potassium [Moles/Vol] 4.4 mmol/L 3.5-5.1 [facility] Serum or plasma sodium measu rement (moles/volume)Ordered By: Howard Stauffer on 03-23-2022 Sodium [Moles/Vol] 141 mmol/L 136-146 [facility] Serum or plasma total biliru bin measurement (mass/volume)Ordered By: Howard Stauffer on 03-23-2022 Bilirubin [Mass/Vol] 0.6 mg/dL 0.3-1.2 [facility] Serum or plasma total carbon dioxide measurement (moles/volume)Ordered By: Howard Stauffer on 03-23-2022 CO2 [Moles/Vol] 27.4 mmol/L 22.0-30.0 [facility] Serum or plasma urea nitroge n measurement (mass/volume)Ordered By: Howard Stauffer on 03-23-2022 Urea nitrogen [Mass/Vol] 24 mg/dL 9-23 [facility] Cecily Ag Negativeon 03-23-20 22 Cecily Ag Negative Negative Normal Negative [facility] Comment on above: Result Comment: This is a duplicate Cecily SARS Antigen (DRAKE) result to be used for statistical tracking purpose only. PERFORMED BY: [place] [address] PATHOLOGIST ATHLETIC TRAINER GUIDO ELIZALDE M.D. Performed By: #### G INOCENTE #### Point of Care testing , Specific gravity Auto test s trip (U) [Rel density]Ordered By: Howard Stauffer on 03-23-2022 Specific gravity (U) [Rel density] 1.017 1.001-1.030 [facility] Troponin I High Sensitivityo n 03-23-2022 Troponin I High Sensitivity 6 pg/mL Normal [facility] Comment on above: Result Comment: PERF ORMED BY: [place] [address] PATHOLOGIST ATHLETIC TRAINER GUIDO ELIZALDE M.D. Performed By: #### C BC, PT, PTT, CMP #### [facility] [address] [place] [address] [place] Troponin I.cardiac [Mass/vol ume] in Serum or Plasma by High sensitivity methodOrdered By: Howard Stauffer on 03-23-2022 Troponin I.cardiac High sensitivity method [Mass/Vol] 6 pg/mL [facility] Urinalysison 03-23-2022 Appearance (U) Clear Normal Clear [facility] Comment on above: Order Comment: Name Collection Type:: Straight Catheter Performed By: #### U A #### [facility] [address] [place] [address] [place] Bilirubin,Urine Negative Normal Negative [facility] Comment on above: Order Comment: Name Collection Type:: Straight Catheter Performed By: #### U A #### [facility] [address] [place], [place] [id number] [place] Color (U) Yellow Normal Yellow [facility] Comment on above: Order Comment: Name Collection Type:: Straight Catheter Performed By: #### U A #### [address] Glucose Ql (U) Normal Normal Normal [facility] Comment on above: Order Comment: Name Collection Type:: Straight Catheter Performed By: #### U A #### [address] Ketones Ql (U) Trace High Negative [facility] Comment on above: Order Comment: Name Collection Type:: Straight Catheter Performed By: #### U A #### [address] Leukocyte esterase Test strip Ql (U) Negative Normal Negative [facility] Comment on above: Order Comment: Name Collection Type:: Straight Catheter Performed By: #### U A #### [address] Nitrite,Urine Negative Normal Negative [facility] Comment on above: Order Comment: Name Collection Type:: Straight Catheter Performed By: #### U A #### [address] Occult Blood,Urine Negative Normal Negative [facility] Comment on above: Order Comment: Name Collection Type:: Straight Catheter Result Comment: PERF ORMED BY: [place] [address] PATHOLOGIST ATHLETIC TRAINER GUIDO ELIZALDE M.D. Performed By: #### U A #### [address] pH (U) 7.5 [pH] Normal 5.0-9.0 [facility] Comment on above: Order Comment: Name Collection Type:: Straight Catheter Performed By: #### U A #### [address] Protein,Urine Negative Normal Negative [facility] Comment on above: Order Comment: Name Collection Type:: Straight Catheter Performed By: #### U A #### [address] Specificy [place],Urine 1.017 Normal 1.001-1.030 [facility] Comment on above: Order Comment: Name Collection Type:: Straight Catheter Performed By: #### U A #### [facility] [address] [place] [id number] [facility] Urobilinogen,Urine Normal Normal Normal [facility] Comment on above: Order Comment: Name Collection Type:: Straight Catheter Performed By: #### U A #### [facility] [address] [place], [place] [id number] [place] Urine clarity by refractomet ry automatedOrdered By: Howard Stauffer on 03-23-2022 Clarity Refractometry automated (U) Clear Clear [facility] Urine glucose measurement by automated test strip (mass/volume)Ordered By: Howard Stauffer on 03-23-2022 Glucose Auto test strip (U) [Mass/Vol] Normal mg/dL Normal [facility] Urine hemoglobin detection b y automated test stripOrdered By: Howard Stauffer on 03-23-2022 Hemoglobin Auto test strip Ql (U) Negative Negative [facility] Urine leukocyte esterase det ection by automated test stripOrdered By: Howard Stauffer on 03-23-2022 Leukocyte esterase Auto test strip Ql (U) Negative Negative [facility] Urobilinogen Auto test strip (U) [Mass/Vol]Ordered By: Howard Stauffer on 03-23-2022 Urobilinogen (U) [Mass/Vol] Normal mg/dL Normal [facility] XR chest 1V portableon 03-23 XR chest 1V portable [facility] Main [place] [id number] XRay Report Signed Patient: Saeed Sarabia MR#: [id number] : 1940 Acct:[id number] Age/Sex: 81 / F ADM Date: 03/23/22 Loc: ER Room: Type: [facility] ER Attending Dr: Copies to: Howard Stauffer DO Ordering Provider: Howard Stauffer DO Date of Service: 03/23/22 XR/XR chest [...] Donny Wolf M.D.03/23/2022 8:03 PM Dictation Location: [place] [address] Transcribed By: MICHAEL 03/23/222002 Dictated By: Donny Wolf II, MD 03/23/222001 Signed By: 03/23/222002 Normal [facility] XR knee RT 4V*on 03-23-2022 XR knee RT 4V* [facility] [address] [place] [address] [place] [address] XRay Report Signed Patient: Saeed Sarabia MR#: [id number] : 1940 Acct:[id number] Age/Sex: 81 / F ADM Date: 03/23/22 Loc: ER Room: Type: [facility] ER Attending Dr: Copies to: Howard Stauffer DO Ordering Provider: Howard Stauffer DO Date of Service: 03/23/22 XR/XR knee [...] Donny Wolf M.D.03/23/2022 8:02 PM Dictation Location: [place] [address] Transcribed By: MICHAEL 03/23/222001 Dictated By: Donny Wolf II, MD 03/23/222000 Signed By: 03/23/222001 Normal [facility] pH Auto test strip (U)Ordere d By: Howard Stauffer on 03-23-2022 pH (U) 7.5 [pH] 5.0-9.0 [facility] Basic Metabolic Panelon 06-0 Calcium [Mass/Vol] 9.6 mg/dL Normal 8.2-10.2 [facility] Comment on above: Result Comment: PERF ORMED BY: [place] [address] PATHOLOGIST ATHLETIC TRAINER GUIDO ELIZALDE M.D. Performed By: #### C BC, PT, PTT, CMP #### [facility] [address] [place] [address] Chloride [Moles/Vol] 99 mmol/L Normal 95-114 [facility] Comment on above: Performed By: #### C BC, PT, PTT, CMP #### [facility] [address] [place] [address] [place] CO2 [Moles/Vol] 26.1 mmol/L Normal 22.0-30.0 [facility] Comment on above: Performed By: #### C BC, PT, PTT, CMP #### [place] [address] [place] Creatinine [Mass/Vol] 1.04 mg/dL High 0.44-1.03 [facility] Comment on above: Performed By: #### C BC, PT, PTT, CMP #### [facility] [address] [place] [id number] [place] Estimated GFR ( Froylan > 60 Normal [facility] Comment on above: Result Comment: GFR estimated reference range: According to KDOQI guidelines, <60 ml/min/1.73m2 is sufficient to diagnose a patient with chronic kidney disease. Performed By: #### C BC, PT, PTT, CMP #### [facility] [address] [place] [address] [place] Estimated GFR (Non- Am 51 Normal [facility] Comment on above: Performed By: #### C BC, PT, PTT, CMP #### [facility] [address] [place] [address] [place] Glucose [Mass/Vol] 134 mg/dL High 70-100 [facility] Comment on above: Result Comment: [place] Glucose Reference Range is dependent on time and content of last meal. Glucose of more than 200 mg/dL in a nonstressed, ambulatory subject supports the diagnosis of Diabetes Mellitus. ADA recommended reference range Performed By: #### C BC, PT, PTT, CMP #### [facility] [address] Potassium [Moles/Vol] 4.8 mmol/L Normal 3.5-5.1 [facility] Comment on above: Performed By: #### C BC, PT, PTT, CMP #### [facility] [address] [place] [address] [place] Sodium [Moles/Vol] 139 mmol/L Normal 136-146 [facility] Comment on above: Performed By: #### C BC, PT, PTT, CMP #### [facility] [address] [place] [address] [place] Urea nitrogen [Mass/Vol] 21 mg/dL Normal 9-23 [facility] Comment on above: Performed By: #### C BC, PT, PTT, CMP #### [facility] [address] [place] [address] [place] Basophils Auto (Bld) [#/Vol] Ordered By: Atul Vera on 03-09-2022 Basophils (Bld) [#/Vol] 0.1 10*3/uL 0.0-0.2 [facility] Basophils/100 WBC Auto (Bld) Ordered By: Atul Vera on 03-09-2022 Basophils/100 WBC (Bld) 0.8 % [facility] Blood hemoglobin measurement (mass/volume)Ordered By: Atul Vera on 03-09-2022 Hemoglobin (Bld) [Mass/Vol] 13.7 g/dL 11.8-15.4 [facility] Blood leukocytes automated c ount (number/volume)Ordered By: Atul Vera on 03-09-2022 WBC (Bld) [#/Vol] 6.4 10*3/uL 4.5-11.0 [facility] Complete Blood Count Auto Di ffon 03-09-2022 Basophils (Bld) [#/Vol] 0.1 10*3/uL Normal 0.0-0.2 [facility] Comment on above: Result Comment: PERF ORMED BY: [place] [address] PATHOLOGIST ATHLETIC TRAINER GUIDO ELIZALDE M.D. Performed By: #### C BC, PT, PTT, CMP #### [address] Basophils/100 WBC (Bld) 0.8 % Normal . [facility] Comment on above: Performed By: #### C BC, PT, PTT, CMP #### [facility] [address] [place] [address] Eosinophils (Bld) [#/Vol] 0.1 10*3/uL Normal 0.0-0.45 [facility] Comment on above: Performed By: #### C BC, PT, PTT, CMP #### [address] Eosinophils/100 WBC (Bld) 1.9 % Normal . [facility] Comment on above: Performed By: #### C BC, PT, PTT, CMP #### [facility] [address] [place] [address] Erythrocyte distribution width (RBC) [Ratio] 13.8 % Normal 11.9-15.3 [facility] Comment on above: Performed By: #### C BC, PT, PTT, CMP #### [facility] [address] [place] [address] Hematocrit (Bld) [Volume fraction] 41.8 % Normal 34.0-46.4 [facility] Comment on above: Performed By: #### C BC, PT, PTT, CMP #### [address] Hemoglobin (Bld) [Mass/Vol] 13.7 g/dL Normal 11.8-15.4 [facility] Comment on above: Performed By: #### C BC, PT, PTT, CMP #### [address] Lymphocytes (Bld) [#/Vol] 2.1 10*3/uL Normal 1.00-4.8 [facility] Comment on above: Performed By: #### C BC, PT, PTT, CMP #### [address] Lymphocytes/100 WBC (Bld) 32.8 % Normal . [facility] Comment on above: Performed By: #### C BC, PT, PTT, CMP #### [address] MCH (RBC) [Entitic mass] 30.2 pg Normal 24.7-34.3 [facility] Comment on above: Performed By: #### C BC, PT, PTT, CMP #### [address] MCV (RBC) [Entitic vol] 92.0 fL Normal 80-100 [facility] Comment on above: Performed By: #### C BC, PT, PTT, CMP #### [address] Mean Corpuscular HGB Conc 32.8 g/dL Normal 32.0-35.0 [facility] Comment on above: Performed By: #### C BC, PT, PTT, CMP #### [address] Monocytes (Bld) [#/Vol] 0.5 10*3/uL Normal 0.0-0.8 [facility] Comment on above: Performed By: #### C BC, PT, PTT, CMP #### [address] Monocytes/100 WBC (Bld) 7.6 % Normal . [facility] Comment on above: Performed By: #### C BC, PT, PTT, CMP #### [address] Neutrophils (Bld) [#/Vol] 3.7 10*3/uL Normal 1.8-7.7 [facility] Comment on above: Performed By: #### C BC, PT, PTT, CMP #### [address] Neutrophils/100 WBC (Bld) 56.9 % Normal . [facility] Comment on above: Performed By: #### C BC, PT, PTT, CMP #### [address] Nucleated RBC/100 WBC (Bld) [Ratio] 0.1 % Normal 0-0.5 [facility] Comment on above: Performed By: #### C BC, PT, PTT, CMP #### [address] Platelet mean volume (Bld) [Entitic vol] 9.0 fL Normal 6.3-10.7 [facility] Comment on above: Performed By: #### C BC, PT, PTT, CMP #### [place] [address] [place] Platelets (Bld) [#/Vol] 277 10*3/uL Normal 150-450 [facility] Comment on above: Performed By: #### C BC, PT, PTT, CMP #### [place] [address] [place] RBC (Bld) [#/Vol] 4.55 10*6/uL Normal 3.60-5.00 [facility] Comment on above: Performed By: #### C BC, PT, PTT, CMP #### [place] [address] [place] WBC (Bld) [#/Vol] 6.4 10*3/uL Normal 4.5-11.0 [facility] Comment on above: Performed By: #### C BC, PT, PTT, CMP #### [place] [address] [facility] Creatinine and Glomerular fi ltration rate.predicted panel (S/P/Bld)Ordered By: Atul Vera on 03-09-2022 Creatinine [Mass/Vol] 1.04 mg/dL 0.44-1.03 [facility] ECG 12 lead ECGon 03-09-2022 ECG 12 lead ECG [facility] [address] [place] [address] [place] [address] Electrocardiograph Report Signed Patient: Saeed Sarabia MR#: [id number] : 1940 Acct:[id number] Age/Sex: 81 / F ADM Date: 03/09/22 Loc: Room: Type: [facility] Attending Dr: Atul Vera MD Ordering Provider: Atul Vera MD Date of Service: 03/09/2210/30/1315 ECG/ECG [...] Piedad Lockhart DO 03/12 Normal [facility] Eosinophils Auto (Bld) [#/Vo l]Ordered By: Atul Vera on 03-09-2022 Eosinophils (Bld) [#/Vol] 0.1 10*3/uL 0.0-0.45 [facility] Eosinophils/100 WBC Auto (Bl d)Ordered By: Atul Vera on 03-09-2022 Eosinophils/100 WBC (Bld) 1.9 % [facility] Erythrocyte distribution wid th Auto (RBC) [Ratio]Ordered By: Atul Vera on 03-09-2022 Erythrocyte distribution width (RBC) [Ratio] 13.8 % 11.9-15.3 [facility] Estimated glomerular filtrat ion rate (GFR) non- AmericanOrdered By: Atul Vera on 03-09-2022 GFR/1.73 sq M.predicted among non-blacks MDRD (S/P/Bld) [Vol rate/Area] 51 mL/Min [facility] Hematocrit Auto (Bld) [Volum e fraction]Ordered By: Atul Vera on 03-09-2022 Hematocrit (Bld) [Volume fraction] 41.8 % 34.0-46.4 [facility] Laboratory - Hematology and Cell countsOrdered By: Atul Vera on 03-09-2022 Nucleated RBC/100 WBC (Bld) [Ratio] 0.1 % 0-0.5 [facility] Lymphocytes Auto (Bld) [#/Vo l]Ordered By: Atul Vera on 03-09-2022 Lymphocytes (Bld) [#/Vol] 2.1 10*3/uL 1.00-4.8 [facility] Lymphocytes/100 WBC Auto (Bl d)Ordered By: Atul Vera on 03-09-2022 Lymphocytes/100 WBC (Bld) 32.8 % [facility] MCH Auto (RBC) [Entitic mass ]Ordered By: Atul Vera on 03-09-2022 MCH (RBC) [Entitic mass] 30.2 pg 24.7-34.3 [facility] MCHC Auto (RBC) [Mass/Vol]Or dered By: Atul Vera on 03-09-2022 MCHC (RBC) [Mass/Vol] 32.8 g/dL 32.0-35.0 [facility] MCV Auto (RBC) [Entitic vol] Ordered By: Atul Vera on 03-09-2022 MCV (RBC) [Entitic vol] 92.0 fL 80-100 [facility] Monocytes Auto (Bld) [#/Vol] Ordered By: Atul Vera on 03-09-2022 Monocytes (Bld) [#/Vol] 0.5 10*3/uL 0.0-0.8 [facility] Monocytes/100 WBC Auto (Bld) Ordered By: Atul Vera on 03-09-2022 Monocytes/100 WBC (Bld) 7.6 % [facility] Neutrophils Auto (Bld) [#/Vo l]Ordered By: Atul Vera on 03-09-2022 Neutrophils (Bld) [#/Vol] 3.7 10*3/uL 1.8-7.7 [facility] Neutrophils/100 WBC Auto (Bl d)Ordered By: Atul Vera on 03-09-2022 Neutrophils/100 WBC (Bld) 56.9 % [facility] No Panel InformationOrdered By: Atul Vera on 03-09-2022 Estimated GFR () > 60 mL/Min [facility] Comment on above: GFR estimated refere nce range: According to KDOQI guidelines, <60 ml/min/1.73m2 is sufficient to diagnose a patient with chronic kidney disease. Pharmacy Creatinine Clearance (Chem N/A [facility] Platelet mean volume Auto (B ld) [Entitic vol]Ordered By: tAul Vera on 03-09-2022 Platelet mean volume (Bld) [Entitic vol] 9.0 fL 6.3-10.7 [facility] Platelets Auto (Bld) [#/Vol] Ordered By: Atul Vera on 03-09-2022 Platelets (Bld) [#/Vol] 277 10*3/uL 150-450 [facility] RBC Auto (Bld) [#/Vol]Ordere d By: Atul Vera on 03-09-2022 RBC (Bld) [#/Vol] 4.55 10*6/uL 3.60-5.00 [facility] Serum or plasma calcium nakul urement (mass/volume)Ordered By: Atul Vera on 03-09-2022 Calcium [Mass/Vol] 9.6 mg/dL 8.2-10.2 [facility] Serum or plasma chloride juliana surement (moles/volume)Ordered By: Atul Vera on 03-09-2022 Chloride [Moles/Vol] 99 mmol/L 95-114 [facility] Serum or plasma glucose nakul urement (mass/volume)Ordered By: Atul Vera on 03-09-2022 Glucose [Mass/Vol] 134 mg/dL 70-100 [facility] Comment on above: ADA recommended refe rence range Random Glucose Reference Range is dependent on time and content of last meal. Glucose of more than 200 mg/dL in a nonstressed, ambulatory subject supports the diagnosis of Diabetes Mellitus. Serum or plasma potassium me asurement (moles/volume)Ordered By: Atul Vera on 03-09-2022 Potassium [Moles/Vol] 4.8 mmol/L 3.5-5.1 [facility] Serum or plasma sodium measu rement (moles/volume)Ordered By: Atul Vera on 03-09-2022 Sodium [Moles/Vol] 139 mmol/L 136-146 [facility] Serum or plasma total carbon dioxide measurement (moles/volume)Ordered By: Atul Vera on 03-09-2022 CO2 [Moles/Vol] 26.1 mmol/L 22.0-30.0 [facility] Serum or plasma urea nitroge n measurement (mass/volume)Ordered By: Atul Vera on 03-09-2022 Urea nitrogen [Mass/Vol] 21 mg/dL 9-23 [facility] MRI LSTAMPA WO CONon 02-19-20 MRI [facility] CON EXAMINATION: MRI [facility] CON HISTORY: Lumbar spondylosis with myelopathy COMPARISON: [...] by: SHEILA INIGUEZ Date: 2022-02-18 11:32 Normal [facility] US ARTERY LEG BILon 02-12-20 22 US ARTERY LEG HONG EXAMINATION: US FORD RY LEG HONG HISTORY: Peripheral vascular disease (disorder) COMPARISON: 12/17/2019 [...] by: SHEILA INIGUEZ Date: 2022-02-11 16:21 Normal [facility] XR LSPINE 2_3 VIEWSon 2021 XR LSPINE 2_3 VIEWS EXAMINATION: XR LSPI NE 2_3 VIEWS 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 Adilene Koo CBC AUTO DIFFon 02-09-2022 BASO # 0.0 103/ul Normal 0.0-0.1 [facility] Comment on above: Performed By: #### C BC ####[facility] [address] [place] [id number]. Adilene Koo Basophils/100 WBC (Bld) 0.2 % Normal 0.2-2.0 [facility] Comment on above: Performed By: #### C BC ####[facility] [address] [place] [id number]. Adilene Koo EO # 0.1 103/ul Normal 0.0-0.7 [facility] Comment on above: Performed By: #### C BC ####[facility] [address] [place] [id number]. Adilene Koo Eosinophils/100 WBC (Bld) 1.5 % Normal 0.9-7.0 [facility] Comment on above: Performed By: #### C BC ####[facility] [address] [place] [id number] Koo Erythrocyte distribution width (RBC) [Ratio] 13.2 % Normal 11.0-15.0 [facility] Comment on above: Performed By: #### C BC ####[facility] [address] [place] [id number]. Adilene Koo Hematocrit (Bld) [Volume fraction] 46.3 % Normal 36.0-48.0 [facility] Comment on above: Performed By: #### C BC ####[facility] [address] [place] [address]Dr. Adilene Koo Hemoglobin (Bld) [Mass/Vol] 14.1 g/dL Normal 12.0-16.0 [facility] Comment on above: Performed By: #### C BC ####[facility] [address] [place] [address]Dr. Adilene Koo IG # 0.02 10e3/ul Normal 0.00-0.03 [facility] Comment on above: Performed By: #### C BC ####[facility] [address] [place], [place] [address]Dr. Adilene Koo IG % 0.2 % Normal 0.0-0.5 [facility] Comment on above: Performed By: #### C BC ####[facility] [address] [place], [place] [address]Dr. Adilene Hayes LYMPH # 2.4 103/ul Normal 1.2-3.8 [facility] Comment on above: Performed By: #### C BC ####[facility] [address] [place], [place] [address]Dr. Adilene Hayes Lymphocytes/100 WBC (Bld) 29.9 % Normal 20.5-60.0 [facility] Comment on above: Performed By: #### C BC ####[facility] [address] [place], [place] [address]Dr. Josephinerossy Koo MANUAL DIFF REQ NO Normal [facility] Comment on above: Performed By: #### C BC ####[facility] [address] [place], [place] [address]Dr. Adilene Hayes MCH (RBC) [Entitic mass] 29.2 pg Normal 26.7-34.0 [facility] Comment on above: Performed By: #### C BC ####[facility] [address] [place] [address]Dr. Adilene Koo MCHC (RBC) [Mass/Vol] 30.5 g/dL Normal 29.9-35.2 [facility] Comment on above: Performed By: #### C BC ####[facility] [address] [place] [address]Dr. Adilene Koo MCV (RBC) [Entitic vol] 95.9 fL Normal 81.0-99.0 [facility] Comment on above: Performed By: #### C BC ####[facility] [address] [place], [place] [address]Dr. Adilene Koo MONO # 0.6 103/ul Normal 0.3-0.8 [facility] Comment on above: Performed By: #### C BC ####[facility] [address] [place], [place] [address]Dr. Adilene Hayes Monocytes/100 WBC (Bld) 8.0 % Normal 1.7-12.0 [facility] Comment on above: Performed By: #### C BC ####[facility] [address] [place], [place] [address]Dr. Adilene Koo NEUT # 4.8 103/ul Normal 1.4-6.5 [facility] Comment on above: Performed By: #### C BC ####[facility] [address] [place], [place] [address]Dr. Adilene Hayes Neutrophils/100 WBC (Bld) 60.2 % Normal 43.0-75.0 [facility] Comment on above: Performed By: #### C BC ####[facility] [address] [place], [place] [address]Dr. Adilene Hayes Platelet mean volume (Bld) [Entitic vol] 10.9 fL Normal 9.5-13.5 [facility] Comment on above: Performed By: #### C BC ####[facility] [facility] [id number] [place], [place] [address]Dr. Adilene Hayes PLT 276 103/ul Normal 150-450 [facility] Comment on above: Performed By: #### C BC ####[facility] [address] [place], [place] [address]Dr. Adilene Koo RBC 4.83 106/ul Normal 4.20-5.40 [facility] Comment on above: Performed By: #### C BC ####[facility] [address] [address]Dr. Adilene Koo WBC 8.0 103/ul Normal 4.0-11.0 [facility] Comment on above: Performed By: #### C BC ####[facility] [address] [id number]. Adilene Koo FREE T3on 02-09-2022 FREE T3 2.41 pg/mlL Normal 2.18-3.98 [facility] Comment on above: Performed By: #### B MP, FT3, TSH #### [facility] [address] [address] [address] Adilene Koo FREE T4on 02-09-2022 Free T4 [Mass/Vol] 1.39 ng/dL Normal 0.76-1.46 [facility] Comment on above: Performed By: #### F T4 ####[facility] [id number] [address]Dr. Adilene Koo GLYCOHEMOGLOBIN A1Con 2021 ADA RECOMMENDATION SEE BELOW Normal [facility] Comment on above: Result Comment: ADA RECOMMENDED LIMIT 4.0 - 6.0 ADA THERAPEUTIC TARGET < 7.0 ACTION SUGGESTED > 7.0 Performed By: #### A 1C ####[facility] [address] [address]Dr. Adilene Koo Glucose [Mass/Vol] 137 mg/dL Normal [facility] Comment on above: Performed By: #### A 1C ####[facility] [address] [address]Dr. Adilene Koo HbA1c (Bld) [Mass fraction] 6.4 % Critically high 4.5-6.2 [facility] Comment on above: Performed By: #### A 1C ####[facility] [address] [address]Dr. Adilene Koo PROF CHEM 8 (BAS METB)on Anion gap [Moles/Vol] 9.1 mmol/L Normal [facility] Comment on above: Performed By: #### B MP, FT3, TSH #### [facility] [address] [address] [address] Adilene Koo Calcium [Mass/Vol] 9.0 mg/dL Normal 8.5-10.1 [facility] Comment on above: Performed By: #### B MP, FT3, TSH #### [facility] [address] [address] [address] Adilene Koo Chloride [Moles/Vol] 105 mmol/L Normal 98-107 [facility] Comment on above: Performed By: #### B MP, FT3, TSH #### [facility] [address] [address] [address] Adilene Koo CO2 [Moles/Vol] 30.5 mmol/L Normal 21.0-32.0 [facility] Comment on above: Performed By: #### B MP, FT3, TSH #### [facility] [address] [place] [address] Dr. Adilene Koo Creatinine [Mass/Vol] 0.93 mg/dL Normal 0.55-1.02 [facility] Comment on above: Performed By: #### B MP, FT3, TSH #### [facility] [address] [place] [address] Dr. Adilene Koo EGFR-AF AUSTRALIAN >60 Normal >=60 [facility] Comment on above: Performed By: #### B MP, FT3, TSH #### [facility] [address] [place] [address] Dr. Adilene Koo EGFR-NON AF AUSTRALIAN 58 mL/min/1.73m2 Critically low >=60 [facility] Comment on above: Performed By: #### B MP, FT3, TSH #### [facility] [address] [place] [address] Dr. Adilene Koo Glucose [Mass/Vol] 105 mg/dL Normal 74-106 [facility] Comment on above: Performed By: #### B MP, FT3, TSH #### [facility] [address] [place] [address] Dr. Adilene Koo Potassium [Moles/Vol] 4.6 mmol/L Normal 3.5-5.1 [facility] Comment on above: Performed By: #### B MP, FT3, TSH #### [facility] [address] [place] [address] Dr. Adilene Koo Sodium [Moles/Vol] 140 mmol/L Normal 136-145 [facility] Comment on above: Performed By: #### B MP, FT3, TSH #### [facility] [address] [address] [address] Adilene Koo Urea nitrogen [Mass/Vol] 20.0 mg/dL Critically high 7.0-18 .0 [facility] Comment on above: Performed By: #### B MP, FT3, TSH #### [facility] [address] [place] [address] Dr. Adilene Koo Urea nitrogen/Creatinine [Mass ratio] 21.5 mg/mg Normal [facility] Comment on above: Performed By: #### B MP, FT3, TSH #### [facility] [address] [place] [address] Dr. Adilene Koo TSHon 02-09-2022 TSH 0.134 uIU/mL Critically low 0.470-4.680 [facility] Comment on above: Performed By: #### B MP, FT3, TSH #### [facility] [address] [place] [address] Dr. Adilene Koo TSH RANGE SEE BELOW Normal [facility] Comment on above: Result Comment: <0.3 4 UIU/ml HYPERTHYROID 0.34-5.60 UIU/ml EUTHYROID >5.60 UIU/ml HYPOTHYROID Performed By: #### B MP, FT3, TSH #### [facility] [address] [place] [address] Dr. Adilene Koo Vital Signs Date Time Vital Sign Value Performing Clinician Facility 02-18-2025 10:34-0400 Body mass index (BMI) [Ratio] 27.57 kg/m2 Galindo Miller PIECE GOODS CLERK Work Phone[facility] 02-18-2025 10:34-0400 Body temperature 97.81 [degF] Galindo Miller [employer]IECE GOODS CLERK Work Phone: [facility] 02-18-2025 10:34-0400 Body weight 72.85 kg Galindo Miller [employer]IECE GOODS CLERK Work Phone: [facility] 02-18-2025 10:34-0400 Diastolic blood pressure 70 mm[Hg] Galindo Miller [employer]IECE GOODS CLERK Work Phone: [facility] 02-18-2025 10:34-0400 Heart rate 57 /min Galindo Miller [employer]IECE GOODS CLERK Work Phone: [facility] 02-18-2025 10:34-0400 Respiratory rate 20 /min Galindo Miller [employer]IECE GOODS CLERK Work Phone: [facility] 02-18-2025 10:34-0400 SaO2% (BldA) [Mass fraction] 95 % Galindo Miller [employer]CE GOODS CLERK Work Phone: [facility] 02-18-2025 10:34-0400 Systolic blood pressure 128 mm[Hg] Galindo Miller PIECE GOODS CLERK Work Phone: [facility] 01-17-2025 10:18-0400 Body mass index (BMI) [Ratio] 26.01 kg/m2 Dinora Pack CNA CAREGIVER.LAUNDRY AIDE Work Phone: [facility] 01-17-2025 10:18-0400 Body weight 73.1 kg Dinora Pack CNA CAREGIVER.LAUNDRY AIDE Work Phone: [facility] 01-17-2025 10:18-0400 Diastolic blood pressure 74 mm[Hg] Dinora Pack CNA CAREGIVER.LAUNDRY AIDE Work Phone: [facility] 01-17-2025 10:18-0400 Heart rate 62 /min Dinora Pack CNA CAREGIVER.LAUNDRY AIDE Work Phone: [facility] 01-17-2025 10:18-0400 SaO2% (BldA) [Mass fraction] 99 % Dinora Pack CNA CAREGIVER.LAUNDRY AIDE Work Phone: [facility] 01-17-2025 10:18-0400 Systolic blood pressure 167 mm[Hg] Dinora Glen YUSUFLAUNDRY AIDE Work Phone: [facility] 12-17-2024 08:54-0400 Body height 167.6 cm Luciananabil Zimmermanzel DO Work Phone: [facility] 12-17-2024 08:54-0400 Body mass index (BMI) [Ratio] 25.8 kg/m2 Luciana Hirzel DO Work Phone: [facility] 12-17-2024 08:54-0400 Body weight 72.5 kg Luciana Hirzel DO Work Phone: [facility] 12-17-2024 08:54-0400 Diastolic blood pressure 70 mm[Hg] Luciana Hirzel DO Work Phone: [facility] 12-17-2024 08:54-0400 Heart rate 70 /min Luciana Hirzel DO Work Phone: [facility] 12-17-2024 08:54-0400 SaO2% (BldA) [Mass fraction] 97 % Luciana Hirzel DO Work Phone: [facility] 12-17-2024 08:54-0400 Systolic blood pressure 120 mm[Hg] Luciana Hirzel DO Work Phone: [facility] 12-03-2024 09:00-0500 Body mass index (BMI) [Ratio] 26.67 kg/m2 Galindo Miller PIECE GOODS CLERK Work Phone: [facility] 12-03-2024 09:00-0500 Body temperature 98.2 [degF] Galindo Miller PIECE GOODS CLERK Work Phone: [facility] 12-03-2024 09:00-0500 Body weight 70.49 kg Galindo Miller PIECE GOODS CLERK Work Phone: [facility] 12-03-2024 09:00-0500 Diastolic blood pressure 76 mm[Hg] Galindo Miller PIECE GOODS CLERK Work Phone: [facility] 12-03-2024 09:00-0500 Heart rate 64 /min Galindo Meansmegan [employer]IECE GOODS CLERK Work Phone: [facility] 12-03-2024 09:00-0500 Respiratory rate 18 /min Galindo Meansmegan [employer]IECE GOODS CLERK Work Phone: [facility] 12-03-2024 09:00-0500 SaO2% (BldA) [Mass fraction] 99 % Galindo Leónjaziel P[employer]CE GOODS CLERK Work Phone: [facility] 12-03-2024 09:00-0500 Systolic blood pressure 130 mm[Hg] Galindo Meansmegan PIECE GOODS CLERK Work Phone: [facility] 11-15-2024 13:50-0500 Body height 167.6 cm Pacc 2 Work Phone: [facility] 11-15-2024 13:50-0500 Body mass index (BMI) [Ratio] 24.73 kg/m2 Pacc 2 Work Phone: [facility] 11-15-2024 13:50-0500 Body temperature 99.19 [degF] Pacc 2 Work Phone: [facility] 11-15-2024 13:50-0500 Body weight 69.5 kg Pacc 2 Work Phone: [facility] 11-15-2024 13:50-0500 Diastolic blood pressure 56 mm[Hg] Pacc 2 Work Phone: [facility] 11-15-2024 13:50-0500 Heart rate 64 /min Pacc 2 Work Phone: [facility] 11-15-2024 13:50-0500 Respiratory rate 16 /min Pacc 2 Work Phone: [facility] 11-15-2024 13:50-0500 SaO2% (BldA) [Mass fraction] 97 % Pacc 2 Work Phone: [facility] 11-15-2024 13:50-0500 Systolic blood pressure 147 mm[Hg] Pacc 2 Work Phone: [facility] 11-04-2024 08:44-0500 Body height 167.6 cm Luciana Hirzel DO Work Phone: [facility] 11-04-2024 08:44-0500 Body mass index (BMI) [Ratio] 25.09 kg/m2 Luciana Hirzel DO Work Phone: [facility] 11-04-2024 08:44-0500 Body weight 70.5 kg Luciana Hirzel DO Work Phone: [facility] 11-04-2024 08:44-0500 Diastolic blood pressure 82 mm[Hg] Luciana Hirzel DO Work Phone: [facility] 11-04-2024 08:44-0500 Heart rate 80 /min Luciana Hirzel DO Work Phone: [facility] 11-04-2024 08:44-0500 SaO2% (BldA) [Mass fraction] 98 % Luciana Hirzel DO Work Phone: [facility] 11-04-2024 08:44-0500 Systolic blood pressure 160 mm[Hg] Luciana Hirzel DO Work Phone: [facility] 10-30-2024 11:13-0500 Heart rate 62 /min Galindo Miller [employer]IECE GOODS CLERK Work Phone: [facility] 10-30-2024 10:09-0500 Body mass index (BMI) [Ratio] 26.47 kg/m2 Galindo Romeliaz [employer]CE GOODS CLERK Work Phone: [facility] 10-30-2024 10:09-0500 Body temperature 98.49 [degF] Gailndo Paul PIECE GOODS CLERK Work Phone: [facility] 10-30-2024 10:09-0500 Body weight 69.94 kg Galindo Paul PIECE GOODS CLERK Work Phone: [facility] 10-30-2024 10:09-0500 Diastolic blood pressure 69 mm[Hg] Galindo Paul PIECE GOODS CLERK Work Phone: [facility] 10-30-2024 10:09-0500 Respiratory rate 18 /min Galindo Meansmegan [employer]CE GOODS CLERK Work Phone: [facility] 10-30-2024 10:09-0500 SaO2% (BldA) [Mass fraction] 95 % Galindo Meansmegan PIECE GOODS CLERK Work Phone: [facility] 10-30-2024 10:09-0500 Systolic blood pressure 140 mm[Hg] Galindo Leónjaziel [employer]CE [employer] CLERK Work Phone: [facility] 10-29-2024 09:15-0500 Diastolic blood pressure 73 mm[Hg] Us Stro Work Phone: [facility] Comment on above: retaken 10-29-2024 09:15-0500 Heart rate 66 /min Us Stro Work Phone: [facility] 10-29-2024 09:15-0500 Systolic blood pressure 155 mm[Hg] Us Stro Work Phone: [facility] Comment on above: retaken 10-29-2024 09:14-0500 Body height 167.6 cm Us Stro Work Phone: [facility] 10-29-2024 09:14-0500 Body mass index (BMI) [Ratio] 24.21 kg/m2 Us Stro Work Phone: [facility] 10-29-2024 09:14-0500 Body weight 68.04 kg Us Stro Work Phone: [facility] 10-24-2024 13:18-0500 Body height 165.1 cm Luciana Hirzel DO Work Phone: [facility] 10-24-2024 13:18-0500 Body mass index (BMI) [Ratio] 25.79 kg/m2 Luciana Hirzel DO Work Phone: [facility] 10-24-2024 13:18-0500 Body weight 70.3 kg Luciana Hirzel DO Work Phone: [facility] 10-24-2024 13:18-0500 Diastolic blood pressure 70 mm[Hg] Luciana Green DO Work Phone: [facility] 10-24-2024 13:18-0500 Heart rate 65 /min Luciana Zimmermanzel DO Work Phone: [facility] 10-24-2024 13:18-0500 SaO2% (BldA) [Mass fraction] 98 % Luciana Green DO Work Phone: [facility] 10-24-2024 13:18-0500 Systolic blood pressure 120 mm[Hg] Luciana Zimmermanzel DO Work Phone: [facility] 10-16-2024 12:22-0500 Body temperature 99.3 [degF] Briana Torsney PA-C Work Phone: [facility] 10-16-2024 12:22-0500 Diastolic blood pressure 61 mm[Hg] Briana Torsney PA-C Work Phone: [facility] 10-16-2024 12:22-0500 Heart rate 76 /min Briana Torsney PA-C Work Phone: [facility] 10-16-2024 12:22-0500 Respiratory rate 18 /min Briana Torsney PA-C Work Phone: [facility] 10-16-2024 12:22-0500 SaO2% (BldA) [Mass fraction] 98 % Briana Torsney PA-C Work Phone: [facility] 10-16-2024 12:22-0500 Systolic blood pressure 156 mm[Hg] Briana Torsney PA-C Work Phone: [facility] 10-10-2024 15:01-0500 Body mass index (BMI) [Ratio] 26.78 kg/m2 Galindo Miller PIECE GOODS CLERK Work Phone: [facility] 10-10-2024 15:01-0500 Body temperature 99.19 [degF] Galindo Miller PIECE GOODS CLERK Work Phone: [facility] 10-10-2024 15:01-0500 Body weight 70.76 kg Galindo Aichholz PIECE GOODS CLERK Work Phone: [facility] 10-10-2024 15:01-0500 Diastolic blood pressure 78 mm[Hg] Galindo Aichholz PIECE GOODS CLERK Work Phone: [facility] 10-10-2024 15:01-0500 Heart rate 67 /min Galindo Aichholz PIECE GOODS CLERK Work Phone: [facility] 10-10-2024 15:01-0500 SaO2% (BldA) [Mass fraction] 97 % Galindo Aichholz PIECE GOODS CLERK Work Phone: [facility] 10-10-2024 15:01-0500 Systolic blood pressure 138 mm[Hg] Galindo Aichholz PIECE GOODS CLERK Work Phone: [facility] 09-30-2024 10:40-0500 Body height 162.6 cm Galindo Aichholz PIECE GOODS CLERK Work Phone: [facility] 09-30-2024 10:40-0500 Body mass index (BMI) [Ratio] 26.91 kg/m2 Galindo Aichholz PIECE GOODS CLERK Work Phone: [facility] 09-30-2024 10:40-0500 Body temperature 97.81 [degF] Galindo Aichholz PIECE GOODS CLERK Work Phone: [facility] 09-30-2024 10:40-0500 Body weight 71.12 kg Galindo Aichholz PIECE GOODS CLERK Work Phone: [facility] 09-30-2024 10:40-0500 Diastolic blood pressure 80 mm[Hg] Galindo Aichholz PIECE GOODS CLERK Work Phone: [facility] 09-30-2024 10:40-0500 Heart rate 90 /min Galindo Aichholz PIECE GOODS CLERK Work Phone: [facility] 09-30-2024 10:40-0500 Respiratory rate 18 /min Galindo Aichholz PIECE GOODS CLERK Work Phone: [place] [address] 10:40-0500 SaO2% (BldA) [Mass fraction] 99 % Galindo Aichholz PIECE GOODS CLERK Work Phone: [facility] 09-30-2024 10:40-0500 Systolic blood pressure 132 mm[Hg] Galindo Aichholz PIECE GOODS CLERK Work Phone: [facility] 08-20-2024 09:19-0500 Body temperature 97.81 [degF] Galindo Aichholz PIECE GOODS CLERK Work Phone: [facility] 08-20-2024 09:19-0500 Body weight 74.57 kg Galindo Aichholz PIECE GOODS CLERK Work Phone: [facility] 08-20-2024 09:19-0500 Diastolic blood pressure 76 mm[Hg] Galindo Aichholz PIECE GOODS CLERK Work Phone: [facility] 08-20-2024 09:19-0500 Heart rate 59 /min Galindo Aichholz PIECE GOODS CLERK Work Phone: [facility] 08-20-2024 09:19-0500 Respiratory rate 18 /min Galindo Aichholz PIECE GOODS CLERK Work Phone: [facility] 08-20-2024 09:19-0500 SaO2% (BldA) [Mass fraction] 99 % Galindo Aichholz PIECE GOODS CLERK Work Phone: [facility] 08-20-2024 09:19-0500 Systolic blood pressure 148 mm[Hg] Galindo Aichholz PIECE GOODS CLERK Work Phone: [facility] 04-15-2022 06:02-0400 Body temperature 98.2 [degF] MD Atul Vera Work Phone: [facility] 04-15-2022 06:02-0400 Diastolic blood pressure 71 mm[Hg] MD Atul Vera Work Phone: [facility] 04-15-2022 06:02-0400 Heart rate 77 /min MD Atul Vera Work Phone: [facility] 04-15-2022 06:02-0400 Respiratory rate 16 /min MD Atul Vera Work Phone: [facility] 04-15-2022 06:02-0400 SaO2% (BldA) [Mass fraction] 96 % MD Atul Vera Work Phone: [facility] 04-15-2022 06:02-0400 Systolic blood pressure 131 mm[Hg] MD Atul Vera Work Phone: [facility] 04-15-2022 05:59-0400 Body weight 78.3 kg MD Atul Vera Work Phone: [facility] 04-14-2022 07:46-0400 Body height 167.64 cm MD Atul Vera Work Phone: [facility] 04-07-2022 15:42-0400 Body mass index (BMI) [Ratio] 27.7 kg/m2 MD Atul Vera Work Phone: [facility] 03-28-2022 12:00-0400 Body temperature 98 [degF] MD Atul Vera Work Phone: [facility] 03-28-2022 12:00-0400 Diastolic blood pressure 74 mm[Hg] MD Atul Vera Work Phone: [facility] 03-28-2022 12:00-0400 Heart rate 70 /min MD Atul Vera Work Phone: [facility] 03-28-2022 12:00-0400 SaO2% (BldA) [Mass fraction] 96 % MD Atul Vera Work Phone: [facility] 03-28-2022 12:00-0400 Systolic blood pressure 125 mm[Hg] MD Atul Vera Work Phone: [facility] 03-28-2022 11:50-0400 Body height 157.48 cm MD Atul Vera Work Phone: [facility] 03-28-2022 05:56-0400 Body weight 79.1 kg MD Atul Vera Work Phone: [facility] 03-28-2022 03:30-0400 Respiratory rate 19 /min MD Atul Vera Work Phone: [facility] 03-24-2022 04:00-0400 Body height 157.48 cm MD Atul Vera Work Phone: [facility] 03-24-2022 04:00-0400 Body mass index (BMI) [Ratio] 31.6 kg/m2 MD Atul Vera Work Phone: [facility] 03-24-2022 04:00-0400 Body temperature 97.8 [degF] MD Atul Vera Work Phone: [facility] 03-24-2022 04:00-0400 Body weight 78.4 kg MD Atul Vera Work Phone: [facility] 03-24-2022 04:00-0400 Diastolic blood pressure 77 mm[Hg] MD Atul Vera Work Phone: [facility] 03-24-2022 04:00-0400 Heart rate 113 /min MD Atul Vera Work Phone: [facility] 03-24-2022 04:00-0400 Respiratory rate 21 /min MD Atul Vera Work Phone: [facility] 03-24-2022 04:00-0400 SaO2% (BldA) [Mass fraction] 93 % MD Atul Vera Work Phone: [facility] 03-24-2022 04:00-0400 Systolic blood pressure 162 mm[Hg] MD Atul Vera Work Phone: [facility] 03-23-2022 15:30-0400 Body height 167.64 cm Atul Vera Other [facility] Other 03-23-2022 15:30-0400 Body mass index (BMI) [Ratio] 28.34 kg/m2 Atul Vera Other [facility] Other 03-23-2022 15:30-0400 Body weight 79.65 kg Atul Vera Other [facility] Other 03-09-2022 13:28-0400 Body height 158.75 cm MD Atul Vera Work Phone: [facility] 03-09-2022 13:28-0400 Body mass index (BMI) [Ratio] 32.1 kg/m2 MD Atul Vera Work Phone: [facility] 03-09-2022 13:28-0400 Body temperature 98.7 [degF] MD Atul Vera Work Phone: [facility] 03-09-2022 13:28-0400 Body weight 81 kg MD Atul Vera Work Phone: [facility] 03-09-2022 13:28-0400 Diastolic blood pressure 68 mm[Hg] MD Atul Vera Work Phone: [facility] 03-09-2022 13:28-0400 Heart rate 72 /min MD Atul Vera Work Phone: [facility] 03-09-2022 13:28-0400 Respiratory rate 16 /min MD Atul Vera Work Phone: [facility] 03-09-2022 13:28-0400 SaO2% (BldA) [Mass fraction] 96 % MD Atul Vera Work Phone: [facility] 03-09-2022 13:28-0400 Systolic blood pressure 144 mm[Hg] MD Atul Vera Work Phone: [facility] Encounters Encounter Date Encounter Type Care Provider Facility Start: 02-18-2025 End: 02-18-2025 Bamboo flowsheet Galindo Miller PIECE GOODS CLERK Work Phone: [facility] Start: 02-18-2025 End: 02-18-2025 Bamboo flowsheet Galindo Miller PIECE GOODS CLERK Work Phone: [facility] Start: 02-18-2025 End: 02-18-2025 Patient encounter procedure Galindo Miller PIECE GOODS CLERK Work Phone: [facility] Comment on above: Encounter for subseq uent annual wellness visit (AWV) in Medicare patient (Primary Dx); Type 2 diabetes mellitus with diabetic neuropathy, without long-term current use of insulin (CMS/HCC); Benign essential HTN (CMS/HCC); Chronic atrial fibrillation, unspecified (CMS/HCC); Chronic diastolic (congestive) heart failure; Type 2 diabetes mellitus with diabetic peripheral angiopathy without gangrene, without long-term current use of insulin (CMS/HCC); Foot drop, right foot; Type 2 diabetes mellitus without complication, without long-term current use of insulin; Mixed hyperlipidemia (CMS/HCC); Type 2 diabetes mellitus without complications; Acute gastric ulcer without hemorrhage or perforation Start: 02-18-2025 End: 02-18-2025 ambulatory GALINDO PAUL Not Available Start: 01-31-2025 End: 01-31-2025 Clinisync Result Encounter Galindo Miller PIECE GOODS CLERK Work Phone: [facility] External Department Unsolicited Start: 01-31-2025 End: 01-31-2025 Clinisync Result Encounter Galindo Paul PIECE GOODS CLERK Work Phone: [facility] External Department Unsolicited Start: 01-30-2025 End: 01-30-2025 Orders Only Galindo Miller PIECE GOODS CLERK Work Phone: [facility] Comment on above: Benign essential HTN (CMS/HCC) (Primary Dx); Type 2 diabetes mellitus without complication, without long-term current use of insulin; Mixed hyperlipidemia (CMS/HCC); Vitamin B12 deficiency Start: 01-17-2025 End: 01-17-2025 ambulatory ROLANDA CHAPARRO Facility:[facility] Start: 01-17-2025 End: 01-17-2025 Patient encounter procedure Dinora Carroll CNA CAREGIVER.LAUNDRY AIDE Work Phone: Gastroenterology Comment on above: Calculus of gallblad josué without cholecystitis without obstruction (Primary Dx); Unintentional weight loss Start: 12-17-2024 End: 12-17-2024 ambulatory LUCIANA Danay NORMA Facility:[facility] Start: 12-17-2024 End: 12-17-2024 Patient encounter procedure Luciana Green DO Work Phone: Obstetrics/Gynecology Comment on above: Postop check (Primar y Dx) Start: 12-10-2024 End: 02-09-2025 Follow-up encounter Luciana Green DO Work Phone: [facility] Start: 12-06-2024 End: 12-06-2024 Clinisync Result Encounter Generic External Data Provider [facility] External Department Unsolicited Start: 12-06-2024 End: 12-06-2024 Clinisync Result Encounter Generic External Data Provider [facility] External Department Unsolicited Start: 12-06-2024 End: 12-06-2024 ambulatory GALINDO MILLER Facility:[facility] Start: 12-03-2024 End: 12-03-2024 Office outpatient visit 25 minutes Galindo Miller PIECE GOODS CLERK Work Phone: [facility] Comment on above: Type 2 diabetes fernandez itus without complication, without long- term current use of insulin (CMS/HCC) (Primary Dx); Type 2 diabetes mellitus with diabetic neuropathy, without long-term current use of insulin (CMS/HCC); Acute gastric ulcer without hemorrhage or perforation; Benign essential HTN (CMS/HCC); Chronic atrial fibrillation, unspecified (CMS/HCC); Type 2 diabetes mellitus with diabetic peripheral angiopathy without gangrene, without long-term current use of insulin (CMS/HCC); Other thrombophilia (CMS/HCC); Mixed hyperlipidemia (CMS/HCC); Lower abdominal pain; Thickened endometrium Start: 12-03-2024 End: 12-03-2024 ambulatory GALINDO PAUL Not Available Start: 11-15-2024 Encounter for other preprocedural examination BRENDON DORSEY [facility] Start: 11-15-2024 End: 11-15-2024 Subsequent hospital visit by physician Xr Perry Work Phone: Radiology Comment on above: Pre-op evaluation [Z 01.818] Start: 11-15-2024 End: 11-19-2024 Clinisync Result Encounter Generic External Data Provider [facility] External Department Unsolicited Start: 11-15-2024 End: 11-19-2024 Clinisync Result Encounter Generic External Data Provider [facility] External Department Unsolicited Start: 11-15-2024 End: 11-15-2024 Patient encounter procedure Maxine Kaba RT(R) Radiology Start: 11-15-2024 End: 11-17-2024 Refill Galindo Miller PIECE GOODS CLERK Work Phone: [facility] Comment on above: Acute gastric ulcer without hemorrhage or perforation Start: 11-15-2024 End: 11-15-2024 Admission to [place] [address] Work Phone: Pre Anesthesia Start: 11-15-2024 End: 11-15-2024 ambulatory Maxine Kaba RT(R) Radiology Comment on above: Radiology XR Start: 11-15-2024 End: 11-15-2024 Anesthesia consultation [facility] 2 Work Phone: Pre Anesthesia Comment on above: Pre-op evaluation (P rimary Dx); Benign essential HTN; Type 2 diabetes mellitus with other specified complication, without long-term current use of insulin (HCC); Paroxysmal atrial fibrillation (HCC); 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; Other hyperlipidemia Start: 11-15-2024 End: 11-15-2024 Preprocedural examination done Pac 2 Work Phone: [facility] Work Phone: Start: 11-13-2024 End: 11-13-2024 ambulatory [facility] Start: 11-12-2024 End: 11-12-2024 ambulatory [facility] Provider Obstetrics/Gynecolog y Comment on above: Polyp removal proced ure Start: 11-07-2024 End: 11-14-2024 Telephone encounter Luciana Green DO Work Phone: Obstetrics/Gynecology Comment on above: Schedule Surgery Start: 11-07-2024 End: 11-07-2024 ambulatory [facility] Start: 11-07-2024 End: 11-07-2024 Encounter for preprocedural cardiovascular examination [facility] Start: 11-05-2024 End: 11-05-2024 Telephone encounter Luciana Green DO Work Phone: Obstetrics/Gynecology Start: 11-04-2024 End: 11-04-2024 ambulatory LUCIANA GREEN Facility:[facility] Start: 11-04-2024 End: 11-04-2024 Patient encounter procedure Luciana Green DO Work Phone: Obstetrics/Gynecology Comment on above: Endometrial polyp (P rimary Dx) Start: 10-30-2024 End: 10-30-2024 Bamboo flowsheet Galindo Miller NP Work Phone: [facility] Start: 10-30-2024 End: 10-30-2024 Bamboo flowsheet Galindo Miller PIECE GOODS CLERK Work Phone: [facility] Start: 10-30-2024 End: 10-30-2024 Telephone encounter Gabriela Centeno MD Work Phone: Obstetrics/Gynecology Start: 10-30-2024 End: 10-30-2024 Office outpatient visit 25 minutes Galindo Miller NP Work Phone: [facility] Comment on above: Benign essential HTN (CMS/HCC) (Primary Dx); Type 2 diabetes mellitus with diabetic neuropathy, unspecified (CMS/HCC); Type 2 diabetes mellitus with diabetic peripheral angiopathy without gangrene (CMS/HCC); Chronic diastolic (congestive) heart failure (CMS/HCC); Chronic atrial fibrillation, unspecified (CMS/HCC); Delirium due to another medical condition; Endocervical polyp; Abnormal ultrasound of endometrium; Endometrial polyp; Thickened endometrium; Type 2 diabetes mellitus without complication, without long-term current use of insulin ([facility]); Vitamin B12 deficiency; Other thrombophilia ([facility]) Start: 10-30-2024 End: 10-30-2024 ambulatory GALINDO MILLER Not Available Start: 10-29-2024 End: 10-30-2024 Clinisync Result Encounter Generic External Data Provider [facility] External Department Unsolicited Start: 10-29-2024 End: 10-30-2024 Clinisync Result Encounter Generic External Data Provider [facility] External Department Unsolicited Start: 10-29-2024 End: 10-29-2024 Office outpatient new 60 minutes Brendon Dorsey MD Work Phone: Neurology Comment on above: Delirium due to anot her medical condition (Primary Dx); Cognitive decline; History of UTI; Vitamin B12 deficiency Start: 10-29-2024 End: 10-29-2024 ambulatory BRENDON DORSEY Facility:[facility] Start: 10-29-2024 End: 10-29-2024 Patient encounter procedure Instructional Design Specialist [facility] Work Phone: OB/Gynecology Comment on above: Thickened endometriu m (Primary Dx); Endometrial polyp; Endocervical polyp; Abnormal ultrasound of endometrium Start: 10-24-2024 End: 10-24-2024 ambulatory LUCIANA GREEN Facility:[facility] Start: 10-24-2024 End: 10-24-2024 Patient encounter procedure Luciana Green DO Work Phone: Obstetrics/Gynecology Comment on above: Thickened endometriu m (Primary Dx) Start: 10-21-2024 End: 10-22-2024 Clinisync Result Encounter Generic External Data Provider [facility] External Department Unsolicited Start: 10-21-2024 End: 10-22-2024 Clinisync Result Encounter Generic External Data Provider [facility] External Department Unsolicited Start: 10-21-2024 End: 10-21-2024 Evaluation and management of inpatient GALINDO CURTIS LEÓNAlexandreMEGAN Facility:[facility] Start: 10-16-2024 End: 10-21-2024 Evaluation and management of inpatient GASCHARLIE NEMR Facility:[facility] Start: 10-16-2024 End: 10-16-2024 Emergency department patient visit BRENDON DORSEY Facility:[facility] Start: 10-16-2024 End: 10-16-2024 ambulatory SELF Facility:[facility] Start: 10-16-2024 End: 10-16-2024 Patient encounter procedure Briana Schwarz PA-C Work Phone: [facility] Comment on above: Confusion (Primary D x); Abdominal pain, unspecified abdominal location Start: 10-10-2024 End: 10-10-2024 Office outpatient visit 15 minutes Galindo Miller PIECE GOODS CLERK Work Phone: [facility] Comment on above: Non-recurrent acute suppurative otitis media of right ear without spontaneous rupture of tympanic membrane (Primary Dx); Acute non-recurrent sinusitis of other sinus Start: 10-10-2024 End: 10-10-2024 ambulatory GALINDO MILLER Not Available Start: 10-10-2024 End: 10-10-2024 Bamboo flowsheet Galindo Miller PIECE GOODS CLERK Work Phone: [facility] Start: 10-10-2024 End: 10-10-2024 Bamboo flowsheet Galindo Miller PIECE GOODS CLERK Work Phone: [facility] Start: 10-07-2024 End: 10-09-2024 Refill Laurie Walton PIECE GOODS CLERK Work Phone: [facility] Comment on above: Type 2 diabetes fernandez itus without complications ([facility]) Start: 09-30-2024 End: 09-30-2024 Bamboo flowsheet Galindo Miller PIECE GOODS CLERK Work Phone: [facility] Start: 09-30-2024 End: 09-30-2024 Bamboo flowsheet Galindo Miller PIECE GOODS CLERK Work Phone: [facility] Start: 09-30-2024 End: 09-30-2024 Transitional care manage srvc 14 day discharge Galindo Miller PIECE GOODS CLERK Work Phone: [facility] Comment on above: Type 2 diabetes fernandez itus without complication, without long- term current use of insulin (CMS/HCC) (Primary Dx); Acute metabolic encephalopathy; Type 2 diabetes mellitus with diabetic neuropathy, without long-term current use of insulin (CMS/HCC); Chronic atrial fibrillation (HCC) (CMS/HCC); Benign essential HTN (CMS/HCC); Chronic diastolic congestive heart failure (CMS/HCC); Acute cholecystitis; Thickened endometrium; Acute gastric ulcer without hemorrhage or perforation Start: 09-30-2024 End: 09-30-2024 ambulatory GALINDO MILLER Not Available Start: 09-20-2024 Evaluation and management of inpatient KAYGhazal RITIKA [facility] Start: 09-20-2024 Evaluation and management of inpatient DANIAGhazal SANDOVAL [facility] Start: 09-19-2024 Evaluation and management of inpatient KAYLEIGH RIVERA [facility] Start: 09-18-2024 ambulatory ANNELISE PIERCE [facility] Start: 09-17-2024 Emergency department patient visit ANNELISE PIERCE [facility] Start: 09-17-2024 End: 09-21-2024 Evaluation and management of inpatient EDMUNDO FOX [facility] Start: 08-30-2024 End: 08-30-2024 Refill Galindo Miller [employer]IECE GOODS CLERK Work Phone: [facility] Comment on above: UTI symptoms (Primar y Dx); Vaginal yeast infection Start: 08-29-2024 End: 08-29-2024 Clinisync Result Encounter Galindo Miller PIECE GOODS CLERK Work Phone: [facility] External Department Unsolicited Start: 08-29-2024 End: 08-29-2024 Clinisync Result Encounter Galindo Miller PIECE GOODS CLERK Work Phone: [facility] Unsolicited Start: 08-23-2024 End: 08-23-2024 Orders Only Galindo Miller PIECE GOODS CLERK Work Phone: [facility] Comment on above: Hypernatremia (Prima ry Dx) Start: 08-20-2024 End: 08-20-2024 Bamboo flowsheet Galindoghazal Miller PIECE GOODS CLERK Work Phone: [facility] Start: 08-20-2024 End: 08-20-2024 Bamboo flowsheet Galindo Paul PIECE GOODS CLERK Work Phone: [facility] Start: 08-20-2024 End: 08-20-2024 Clinisync Result Encounter Galindoghazal Miller PIECE GOODS CLERK Work Phone: [facility] External Department Unsolicited Start: 08-20-2024 End: 08-20-2024 Office outpatient visit 25 minutes Galindo Miller PIECE GOODS CLERK Work Phone: [facility] Comment on above: Type 2 diabetes fernandez itus without complication, without long- term current use of insulin (CMS/HCC) (Primary Dx); Other thrombophilia (CMS/HCC); Type 2 diabetes mellitus with diabetic neuropathy, unspecified (CMS/HCC); Peripheral vascular disease, unspecified (CMS/HCC); Unspecified diastolic (congestive) heart failure (CMS/HCC); Chronic atrial fibrillation (HCC) (CMS/HCC); Benign essential HTN (CMS/HCC); Coronary arteriosclerosis (CMS/HCC); Type 2 diabetes mellitus without complications (CMS/HCC) Start: 08-20-2024 End: 08-20-2024 ambulatory GALINDO AICHHOLZ Not Available Start: 08-18-2024 End: 08-18-2024 Refill Galindo Aichholz PIECE GOODS CLERK Work Phone: [facility] Comment on above: Type 2 diabetes fernandez itus without complications (CMS/HCC) Start: 08-11-2024 End: 08-12-2024 Refill Galindo Aichholz PIECE GOODS CLERK Work Phone: [facility] Comment on above: Type 2 diabetes fernandez itus without complication, without long- term current use of insulin (CMS/HCC) Start: 02-15-2024 Patient encounter procedure Galindoghazal Miller PIECE GOODS CLERK Work Phone: [facility] Start: 02-02-2024 End: 02-02-2024 ambulatory [facility] Start: 09-07-2022 Telephone encounter Juice Sears MD Work Phone: Neurology Comment on above: Received Outside Med ical Records ([facility] ) Start: 08-23-2022 End: 08-23-2022 Patient encounter procedure Hal Adam PA-C Work Phone: Neurosurgery Comment on above: Foot drop, right maki t (Primary Dx) Start: 08-15-2022 End: 08-16-2022 ambulatory LAUNDRY AIDE GALINDO MILLER Facility:[facility] Start: 07-29-2022 Telephone encounter Juice Sears MD Work Phone: Neurology Comment on above: Other (Power Lineman apy Recertification Note ) Start: 07-26-2022 End: 07-26-2022 Office outpatient new 20 minutes Clayton Hopper DPM Work Phone: Dr[facility] 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); Foot drop, right foot Start: 06-16-2022 Telephone encounter Juice Sears MD Work Phone: Neurology Comment on above: Forms; Other (Discha rge Physician Orders) Start: 05-25-2022 Telephone encounter Juice Sears MD Work Phone: Neurology Comment on above: Forms (Physician Ord ers (Radha) - [facility]//) Start: 05-23-2022 End: 07-29-2022 ambulatory LAUNDRY AIDE GALINDO MILLER Facility:[facility] Start: 05-17-2022 End: 05-17-2022 Patient encounter procedure Juice Sears MD Work Phone: Neurosurgery Comment on above: Spinal stenosis of l umbar region, unspecified whether neurogenic claudication present (Primary Dx); Right leg weakness Start: 05-12-2022 Telephone encounter Juice Sears MD Work Phone: Neurology Comment on above: General ([facility]) Start: 05-06-2022 Telephone encounter Juice Sears MD Work Phone: Neurology Comment on above: Other ([facility] 04/17/22 - 06/15/22) Start: 04-29-2022 Telephone encounter Juice Sears MD Work Phone: Neurology Comment on above: Forms Start: 04-22-2022 Telephone encounter Juice Sears MD Work Phone: Neurology Comment on above: Forms ([facility]) Start: 04-15-2022 Telephone encounter Juice Sears MD Work Phone: Neurology Comment on above: Other (home health o rders requested) Start: 04-07-2022 End: 04-15-2022 Evaluation and management of inpatient Galindo J Aichmegan Facility:[facility] Start: 04-07-2022 End: 04-15-2022 Evaluation and management of inpatient MD Atul Vera Work Phone: [facility] [place] [facility] Start: 04-05-2022 Evaluation and management of inpatient [facility] Start: 03-24-2022 End: 03-28-2022 ambulatory Galindo J Brihfredrickz Facility:[facility] Start: 03-24-2022 End: 03-28-2022 Evaluation and management of inpatient MD Atul Vera Work Phone: [facility] [place] [facility] Start: 03-23-2022 End: 03-23-2022 ambulatory Atul Vera Other [facility] Other Start: 03-23-2022 Postop follow up vis it related to original rey Vera [facility] Neurosurgery Start: 03-17-2022 End: 03-17-2022 ambulatory Galindo J Aichholz Facility:[facility] Start: 03-17-2022 End: 03-17-2022 Departed Referred MD Atul Vera Work Phone: [facility] [place] Start: 03-15-2022 ambulatory LEXI MILLER Facil ity:[facility] Start: 03-09-2022 End: 03-09-2022 ambulatory NON STAFF Facility:[facility] Start: 03-09-2022 End: 03-09-2022 Patient encounter procedure MD Atul Vera Work Phone: [facility] Start: 02-28-2022 End: 02-28-2022 ambulatory Atul Vera Facility:[facility] Start: 02-28-2022 End: 02-28-2022 Patient encounter procedure MD Atul Vera [facility] Start: 02-18-2022 End: 02-19-2022 ambulatory LEXI MEDLEY BRIAlexandreMEGAN Facility:[facility] Start: 02-11-2022 End: 02-12-2022 ambulatory LAUNDRY AIDE GALINDO BRIAlexandreMEGAN Facility:[facility] Start: 02-09-2022 End: 02-10-2022 ambulatory LAUNDRY AIDE GALINDO BRIAlexandreMEGAN Facility:[facility] Procedures Date Procedure Procedure Detail Performing Clinician Start: 01-31-2025 ALL CBC WITH AUTO DIFF Galindo Miller PIECE GOODS CLERK Work Phone: Start: 12-06-2024 Antibody screen Generic Provider Start: 12-06-2024 Antibody screen GALINDO TYLER Comment on above: Order Comment: Speci men Type: BLOOD SPECIMENOrdering Facility: [facility] Address: [address] [place] [address] Performed By: #### T SCR ####NIMITZ BLOOD BANKIA [id number] [place] [address] [place] Start: 12-06-2024 [facility] TYPE + SCREEN Gener ic External Data Provider Start: 12-03-2024 Hemoglobin glycosylated a1c Galindo Miller PIECE GOODS CLERK Work Phone: Start: 11-15-2024 XR CHEST 2V FRONTAL/LAT Generic External Data Provider Start: 10-29-2024 [facility] SURGICAL PATHOLOGY Generic External Data Provider Start: 10-29-2024 Saline infus sonohysterography w/color doppler Luciana Green DO Work Phone: Start: 10-21-2024 [facility] SURGICAL PATHOLOGY Generic External Data Provider Start: 08-29-2024 ALL BASIC METABOLIC PANEL Galindo Leónmaria elena PIECE GOODS CLERK Work Phone: Start: 08-20-2024 ALL CBC WITH AUTO DIFF Galindo Paul PIECE GOODS CLERK Work Phone: Start: 08-20-2024 ALL BASIC METABOLIC PANEL Galindo Leónmaria elena PIECE GOODS CLERK Work Phone: Start: 08-20-2024 Hemoglobin glycosylated a1c Galindo Paul PIECE GOODS CLERK Work Phone: Start: 03-27-2022 Urine culture MD Atul Vera Work Phone: Start: 03-23-2022 Plain chest X-ray MD Osborn Work Phone: Start: 03-23-2022 SARS Antigen (LFIA) MD Atul Vera Work Phone: Start: 02-28-2022 Dual energy X-ray absorptiometry MD Atul Vera Work Phone: Urine culture MD Atul sebastian Work Phone: Plan of Treatment Date Care Activity Detail Author Start: 12-26-2026 Glaucoma screening Diabetes: Retinopathy Screening [facility] Start: 02-23-2026 End: 02-23-2026 Patient encounter procedure 02/23/2026 10:30 AM EDT Office Visit [facility] [address] [place] [phone] Galindo Miller, PIECE GOODS CLERK [address] [place] [id number] [facility] Start: 01-31-2026 Urine screening for protein Diabetes: Urine Protein Screening [facility] Start: 06-02-2025 Hemoglobin A1c measurement HbA1C [facility] Start: 05-22-2025 End: 05-22-2025 Patient encounter procedure 05/22/2025 10:30 AM EDT Office Visit [facility] [address] [place] [address] Galindo Miller NP [address] [place] [address] [facility] Start: 03-02-2025 Hemoglobin A1c measurement Diabetes: Hemoglobin A1C [facility] Start: 02-25-2025 Urine screening for protein Diabetes: Urine Protein Screening [facility] Start: 02-18-2025 End: 02-18-2025 Patient encounter procedure [facility] Comment on above: Type 2 diabetes mellitus with diabetic n europathy, without long-term current use of insulin ([facility]) (Primary Dx); Benign essential HTN (CMS/HCC); Chronic atrial fibrillation, unspecified ([facility]CC); Chronic diastolic (congestive) heart failure; Type 2 diabetes mellitus with diabetic peripheral angiopathy without gangrene, without long-term current use of insulin ([facility]); Foot drop, right foot; Type 2 diabetes mellitus without complication, without long-term current use of insulin; Mixed hyperlipidemia ([facility]); Encounter for subsequent annual wellness visit (AWV) in Medicare patient Start: 02-17-2025 Hemoglobin A1c measurement HbA1C [facility] Start: 02-14-2025 Medicare Annual Wellness (AWV) Medicare Annual Wellness (AWV) [facility] Start: 01-30-2025 End: 01-30-2026 CBC W Auto Differential panel - Blood CBC and differential Lab Routine Vitamin B12 deficiency Expected: 01/30/2025 (Approximate), Expires: 01/30/2026 [facility] Work Phone: Comment on above: Expected: 01/30/2025 (Approximate), Expi res: 01/30/2026 Start: 01-30-2025 End: 01-30-2026 Cobalamin (Vitamin B12) [Mass/volume] in Serum or Plasma Vitamin B12 Lab Routine Vitamin B12 deficiency Expected: 01/30/2025 (Approximate), Expires: 01/30/2026 [facility] Comment on above: Expected: 01/30/2025 (Approximate), Expi res: 01/30/2026 Start: 01-30-2025 End: 01-30-2026 Comprehensive metabolic 2000 panel - Serum or Plasma Comprehensive metabolic panel Lab Routine Benign essential HTN (CMS/HCC) Type 2 diabetes mellitus without complication, without long-term current use of insulin Mixed hyperlipidemia (CMS/HCC) Expected: 01/30/2025 (Approximate), Expires: 01/30/2026 [facility] Comment on above: Expected: 01/30/2025 (Approximate), Expi res: 01/30/2026 Start: 01-30-2025 End: 01-30-2026 Hemoglobin A1c/Hemoglobin.total in Blood Hemoglobin A1c Lab Routine Type 2 diabetes mellitus without complication, without long-term current use of insulin Expected: 01/30/2025 (Approximate), Expires: 01/30/2026 [facility] Comment on above: Expected: 01/30/2025 (Approximate), Expi res: 01/30/2026 Start: 01-30-2025 End: 01-30-2026 Lipid 1996 panel - Serum or Plasma Lipid panel Lab Routine Mixed hyperlipidemia (CMS/HCC) Expected: 01/30/2025 (Approximate), Expires: 01/30/2026 [facility] Comment on above: Expected: 01/30/2025 (Approximate), Expi res: 01/30/2026 Start: 01-30-2025 End: 01-30-2026 Microalbumin/Creatinin e panel in random Urine Microalbumin / creatinine, urine ratio Lab Routine Benign essential HTN (CMS/HCC) Type 2 diabetes mellitus without complication, without long-term current use of insulin Expected: 01/30/2025 (Approximate), Expires: 01/30/2026 [facility] Comment on above: Expected: 01/30/2025 (Approximate), Expi res: 01/30/2026 Start: 01-30-2025 End: 01-30-2026 Urinalysis complete panel - Urine Urinalysis with reflex microscopic (clean catch) Lab Routine Benign essential HTN (CMS/HCC) Type 2 diabetes mellitus without complication, without long-term current use of insulin Expected: 01/30/2025 (Approximate), Expires: 01/30/2026 [facility] Comment on above: Expected: 01/30/2025 (Approximate), Expi res: 01/30/2026 Start: 01-24-2025 End: 01-24-2025 Patient encounter procedure 01/24/2025 11:20 AM EDT Office Visit Gastroenterology [address] [place] [address] [place] [address] Dinora Carroll APRN.[address] [place] [address] Evaluate for colonscopy; Abdominal pain, weight loss. Gastroenterology Comment on above: Evaluate for colonscopy; Abdominal pain, weight loss. Start: 01-17-2025 End: 01-17-2025 Patient encounter procedure 01/17/2025 10:30 AM EDT Office Visit Gastroenterology [address] [place] [address] [place] [address] Dinora Carroll APRN.[address] [place] [address] Evaluate for colonscopy; Abdominal pain, weight loss. Gastroenterology Comment on above: Evaluate for colonscopy; Abdominal pain, weight loss. Start: 12-19-2024 Glaucoma screening Diabetes: Retinopathy Screening [facility] Start: 12-17-2024 End: 12-17-2024 Patient encounter procedure 12/17/2024 9:00 AM EDT Office Visit Obstetrics/Gynecology [address] [address] [place] [address] [address] POST OP Obstetrics/Gynecology Comment on above: POST OP Start: 12-06-2024 End: 12-06-2024 Admission to same day surgery center 12/06/2024 7:30 AM EST - 12/06/2024 8:50 AM EST Surgery [facility] Operating Room [address] [place] [address] [place] [address] [address] EXAM UNDER ANESTHESIA PELVIC / VAGINAL [facility] Operating Room Comment on above: EXAM UNDER ANESTHESIA PELVIC / VAGINAL Start: 12-06-2024 End: 12-06-2024 Hysteroscopy bx endometrium&/polypc w/wo d&c HYSTEROSCOPY SURGICAL W/SAMPLING BIOPSY OF ENDOMETRIUM &/OR POLYPECTOMY W/ OR W/O D&C (TRUCLEAR) Endometrial polyp 12/06/2024 7:30 AM EST [facility] Start: 12-06-2024 End: 12-06-2024 Pelvic examination w/anesthesia other than local EXAM UNDER ANESTHESIA PELVIC / VAGINAL Endometrial polyp 12/06/2024 7:30 AM EST [facility] Start: 12-06-2024 Subsequent hospital visit by physician 12/06/2024 7:30 AM EST Hospital Encounter [facility] Operating Room [address] [place] [address] [place] [address] [facility] [address] [place] [address] Endometrial polyp [N84.0] [facility] Operating Room Comment on above: Endometrial polyp [N84.0] Start: 12-03-2024 End: 12-03-2024 Patient encounter procedure 12/03/2024 9:00 AM EST Office Visit [facility] [address] [place] [address] Galindo Miller, RONNIE [address] [place] [address] [facility] Start: 11-20-2024 Hemoglobin A1c measurement Diabetes: Hemoglobin A1C [facility] Start: 11-15-2024 End: 11-15-2024 Anesthesia consultation 11/15/2024 1:40 PM EST PAT Pre Anesthesia [address] [place] [address] DOS 12/06 Pre Anesthesia Comment on above: DOS 12/06 Start: 10-30-2024 End: 10-30-2024 Patient encounter procedure [facility] Comment on above: Delirium due to another medical conditio n (Primary Dx); Type 2 diabetes mellitus with diabetic neuropathy, unspecified (CMS/HCC); Type 2 diabetes mellitus with diabetic peripheral angiopathy without gangrene (CMS/HCC); Chronic diastolic (congestive) heart failure (CMS/HCC); Chronic atrial fibrillation, unspecified (CMS/HCC); Benign essential HTN (CMS/HCC); Endocervical polyp; Abnormal ultrasound of endometrium; Endometrial polyp; Thickened endometrium; Type 2 diabetes mellitus without complication, without long-term current use of insulin (CMS/HCC); Vitamin B12 deficiency; Other thrombophilia (CMS/HCC) Start: 10-29-2024 End: 10-29-2024 Patient encounter procedure OB/Gynecology Comment on above: EMB/SIS cognitive decline Start: 10-24-2024 End: 10-24-2025 US Uterus and Fallopian tubes W saline IU SONOHYSTEROGRAPHY (SIS) US [facility] Anc Imaging Routine Thickened endometrium Expected: 10/24/2024, Expires: 10/24/2025 [facility] Work Phone: Comment on above: Expected: 10/24/2024, Expires: Start: 10-22-2024 End: 10-22-2024 Patient encounter procedure 10/22/2024 8:30 AM EST Office Visit [facility] [id number] [place] [address] Robby Kim MD [address] [place] [address] Nurse Britt [address] [place] [address] COGNITIVE DECLINE [facility]iatrics Comment on above: COGNITIVE DECLINE Start: 10-10-2024 End: 10-10-2024 Patient encounter procedure 10/10/2024 3:00 PM EST Office Visit [facility] [address] [place] [id number] Galindo Miller NP [address] [place] [phone] Arrived [facility] Comment on above: Arrived Start: 10-09-2024 Advance Directive Discussion Advance Directive Discussion [facility] Start: 09-30-2024 End: 09-30-2024 Patient encounter procedure 09/30/2024 10:30 AM EST Office Visit [facility] [address] [place] [address] Galindo Miller NP [address] [place] [address] Acute metabolic encephalopathy (Primary Dx); Type 2 diabetes mellitus with diabetic neuropathy, without long-term current use of insulin (CMS/HCC); Chronic atrial fibrillation (HCC) (CMS/HCC); Benign essential HTN (CMS/HCC); Chronic diastolic congestive heart failure (CMS/HCC); Acute cholecystitis; Type 2 diabetes mellitus without complication, without long-term current use of insulin (CMS/HCC); Thickened endometrium [facility] Comment on above: Acute metabolic encephalopathy (Primary Dx); Type 2 diabetes mellitus with diabetic neuropathy, without long-term current use of insulin (CMS/HCC); Chronic atrial fibrillation (HCC) (CMS/HCC); Benign essential HTN (CMS/HCC); Chronic diastolic congestive heart failure (CMS/HCC); Acute cholecystitis; Type 2 diabetes mellitus without complication, without long-term current use of insulin (CMS/HCC); Thickened endometrium Start: 09-06-2024 End: 08-23-2025 Basic metabolic 1998 panel - Serum or Plasma Basic metabolic panel Lab Routine Hypernatremia Expected: 09/06/2024 (Approximate), Expires: 08/23/2025 [facility] Work Phone: Comment on above: Expected: 09/06/2024 (Approximate), Expi res: 08/23/2025 Start: 09-06-2024 End: 08-23-2025 Osmolality of Serum or Plasma Osmolality Lab Routine Hypernatremia Expected: 09/06/2024 (Approximate), Expires: 08/23/2025 [facility] Comment on above: Expected: 09/06/2024 (Approximate), Expi res: 08/23/2025 Start: 09-06-2024 End: 08-23-2025 Osmolality, urine Osmolality, urine Lab Routine Hypernatremia Expected: 09/06/2024 (Approximate), Expires: 08/23/2025 [facility] Comment on above: Expected: 09/06/2024 (Approximate), Expi res: 08/23/2025 Start: 09-06-2024 End: 08-23-2025 Urinalysis complete panel - Urine Urinalysis with reflex microscopic (clean catch) Lab Routine Hypernatremia Expected: 09/06/2024 (Approximate), Expires: 08/23/2025 [facility] Comment on above: Expected: 09/06/2024 (Approximate), Expi res: 08/23/2025 Start: 08-20-2024 End: 08-20-2025 Basic metabolic 1998 panel - Serum or Plasma Basic metabolic panel Lab Routine Type 2 diabetes mellitus without complication, without long-term current use of insulin (CMS/HCC) Expected: 08/20/2024 (Approximate), Expires: 08/20/2025 [facility] Work Phone: Comment on above: Expected: 08/20/2024 (Approximate), Expi res: 08/20/2025 Start: 08-20-2024 End: 08-20-2025 CBC W Auto Differential panel - Blood CBC and differential Lab Routine Other thrombophilia (CMS/HCC) Chronic atrial fibrillation (HCC) (CMS/HCC) Expected: 08/20/2024 (Approximate), Expires: 08/20/2025 [facility] Comment on above: Expected: 08/20/2024 (Approximate), Expi res: 08/20/2025 Start: 08-20-2024 End: 08-20-2024 Patient encounter procedure 08/20/2024 9:20 AM EST Office Visit [facility] [address] [place] [id number] Galindo Miller NP [address] [place] [phone] [facility] Start: 06-09-2024 Covid-19 Vaccine ( season) Covid-19 Vaccine ( season) [facility] Start: 06-09-2024 Influenza vaccination Influenza Vaccine (#1) [facility] Start: 11-25-2023 Hemoglobin A1c measurement Diabetes: Hemoglobin A1C [facility] Start: 06-09-2022 Influenza vaccination INFLUENZA (#1) [facility] Start: 04-14-2022 [facility] Work Phone: Start: 04-07-2022 Hospital admission [facility] Work Phone: Start: 04-07-2022 Referral to clinical generalist [facility] Work Phone: Start: 03-28-2022 [facility] Work Phone: Start: 03-27-2022 Urine culture Urine Culture [facility] Start: 03-24-2022 Referral to neurologist [facility] Work Phone: Start: 03-24-2022 Hospital admission [facility] Work Phone: Start: 03-17-2022 Excision of lumbar intervertebral disc OR Lumbar Discectomy (Not Applicable) [facility] Start: 11-23-2021 COVID-19 VACCINE (4 - Booster for Pfizer series) COVID-19 VACCINE (4 - Booster for Pfizer series) [facility] Start: 10-09-2021 ADVANCE DIRECTIVE DISCUSSION ADVANCE DIRECTIVE DISCUSSION [facility] Start: 10-09-2021 DEPRESSION ASSESSMENT DEPRESSION ASSESSMENT [facility] Start: 09-17-2021 COVID-19 VACCINE (4 - Booster for Pfizer series) COVID-19 VACCINE (4 - Booster for Pfizer series) [facility] Start: 2015 RSV Vaccine (1 - 1-dose 75+ series) RSV Vaccine (1 - 1-dose 75+ series) [facility] Start: 2005 BONE DENSITY BONE DENSITY [facility] Start: 2005 Screening for osteoporosis Bone Density Screening [facility] Start: 1990 SHINGRIX VACCINE (1 of 2) SHINGRIX VACCINE (1 of 2) [facility] Start: 1959 Urine microalbumin profile [facility] Start: 1958 Anxiety Screening Anxiety Screening [facility] Start: 1958 Depression Screening Depression Screening [facility] Start: 1958 Hepatitis B surface antibody level LDL CHOLESTEROL [facility] Start: 1950 3 comp foot exam completed DIABETIC FOOT EXAM [facility] Start: 1950 Diabetic foot examination Diabetic Foot Exam [facility] Start: 1950 Glaucoma screening Dilated Retinal Exam [facility] Start: 1950 Hepatitis B screening URINE ALBUMIN:CREATININE RATIO [facility] Start: 1950 Hepatitis C antibody, confirmatory test DILATED RETINAL EXAM [facility] Start: 1946 PNEUMOCOCCAL: 65+ (1 - PCV) PNEUMOCOCCAL: 65+ (1 - PCV) [facility] Start: 1945 Hemoglobin A1c/Hemoglobin.total in Blood HBA1C [facility] Basophil count [facility] Work Phone: Basophil percent differential count [facility] Work Phone: Calcium [Mass/volume ] in Serum or Plasma [facility] Work Phone: Carbon dioxide, tota l [Moles/volume] in Serum or Plasma [facility] Work Phone: Chloride [Moles/volume] in Serum or Plasma [facility] Work Phone: Creatinine and Glomerular filtration rate.predicted panel - Serum, Plasma or Blood [facility] Work Phone: Endometrial bx w/wo endocervix bx w/o dilat spx ENDOMETRIAL BIOPSY Procedures Routine Thickened endometrium Ordered: 10/24/2024 [facility] Comment on above: Ordered: 10/24/2024 Eosinophil percent differential count [facility] Work Phone: Eosinophils [#/volum e] in Blood [facility] Work Phone: Erythrocyte mean corpuscular volume determination [facility] Work Phone: Erythrocytes [#/volume] in Blood [facility] Work Phone: Glucose [Mass/volume ] in Serum or Plasma [facility] Work Phone: Hematocrit [Volume Fraction] of Blood [facility] Work Phone: Hemoglobin [Mass/volume] in Blood [facility] Work Phone: Hemoglobin distribution, width determination [facility] Work Phone: Hysteroscopy bx endometrium&/polypc w/wo d&c HYSTEROSCOPY W/ POLYPECTOMY W/ D&C Endometrial polyp [facility] Leukocytes [#/volume ] in Blood [facility] Work Phone: Lymphocyte count [facility] Work Phone: Lymphocyte percent differential count [facility] Work Phone: Mean corpuscular hemoglobin concentration determination [facility] Work Phone: Mean corpuscular hemoglobin determination [facility] Work Phone: Measurement of renal function [facility] Work Phone: Monocyte count [facility] Work Phone: Monocyte percent differential count [facility] Work Phone: Neutrophil count [facility] Work Phone: Neutrophil percent differential count [facility] Work Phone: Patient Education How to Don an AFO [facility] [facility] Work Phone: Patient referral [facility] Work Phone: Pelvic examination w/anesthesia other than local EXAM UNDER ANESTHESIA PELVIC / VAGINAL Endometrial polyp [facility] Platelet mean volume determination [facility] Work Phone: Platelets [#/volume] in Blood [facility] Work Phone: Potassium [Moles/volume] in Serum or Plasma [facility] Work Phone: SARS-CoV-2 (COVID-19 ) N gene [Presence] in Respiratory specimen by HARMONY with probe detection [facility] Work Phone: Sodium [Moles/volume ] in Serum or Plasma [facility] Work Phone: SURGICAL PATHOLOGY SURGICAL PATH OLOGY Lab Routine Thickened endometrium 10/29/2024 10:40 AM EST [facility] Work Phone: Urea nitrogen [Mass/volume] in Serum or Plasma [facility] Work Phone: End: 12-13-2025 XR Chest PA and Lateral XR CHEST 2V FRONTAL/LAT Radiology Routine Pre-op evaluation Benign essential HTN Type 2 diabetes mellitus with other specified complication, without long-term current use of insulin (HCC) Paroxysmal atrial fibrillation (HCC) 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 Other hyperlipidemia 1 Occurrences starting 11/15/2024 until 12/13/2025 [facility] Work Phone: Comment on above: 1 Occurrences starting 11/15/2024 until 12/13/2025 XR Chest PA and Lateral XR CHEST 2V FRONTAL/LAT Radiology Routine Pre-op evaluation Benign essential HTN Type 2 diabetes mellitus with other specified complication, without long-term current use of insulin (HCC) Paroxysmal atrial fibrillation (HCC) 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 Other hyperlipidemia 11/15/2024 2:40 PM EST [facility] Immunizations Immunization Date Immunization Notes Care Provider Deyanira ferrera 07-22-2024 influenza, high dose seasonal, preservative-free Galindo Aichholz [employer] CL[employer] Work Phone: [facility] 07-25-2023 Influenza, High-dose Seasonal, Quadrivalent, Preservative Free Galindo Aichholz [employer] Work Phone: [facility] 07-25-2023 influenza virus vacc ine, unspecified formulation Galindo Aichholz [employer] Work Phone: [facility] 08-08-2022 Influenza, High-dose Seasonal, Quadrivalent, Preservative Free Galindo Aichholz [employer] Work Phone: [facility] 07-23-2021 COVID-19 mRNA, Comir libia (Easy [employer]) MD Atul Vera Work Phone: [facility] 07-16-2021 Influenza, Seasonal, Quadrivalent, Adjuvanted Galindo Aichholz [employer] Work Phone: [facility] 12-03-2020 COVID-19 mRNA, Comir libia (Pfizer) MD Atul Vera Work Phone: [facility] 11-11-2020 COVID-19 mRNA, Comir libia (Pfizer) MD Atul Vera Work Phone: [facility] 06-06-2020 influenza, injectabl e, quadrivalent, preservative free Galindo Aichholz [employer] Work Phone: [facility] 07-18-2019 Seasonal, quadrivale nt, recombinant, injectable influenza vaccine, preservative free Galindo Aichholz [employer] Work Phone: [facility] 07-25-2018 Seasonal trivalent influenza vaccine, adjuvanted, preservative free Galindo Aichholz [employer] Work Phone: [facility] 07-28-2017 influenza, high dose seasonal, preservative-free Galindo Aichholz [employer] Work Phone: [facility] 07-26-2016 pneumococcal polysaccharide vaccine, 23 valent Galindo Aichholz [employer] Work Phone: [facility] 03-23-2015 pneumococcal conjuga te vaccine, 13 valent Galindo Aichholz [employer] Work Phone: [facility] Payers Date Payer Category Payer Private Health Insurance [id number] 2022 Private Health Insurance [id number] 2022 Self-pay [id number] 2005 Medicare MEDICARE MEDICAR E A AND B [id number] 2005-Present [phone] [address] [address] [place] [address] Medicare [id number] 2005 Medicare [id number] 1959 Medicare [id number] 1959 Unknown [id number] 1940 Unknown [id number]. 593 1940 Unknown [id number] [id number]. 593 1940 Unknown [id number] [id number]. 593 1940 Unknown [id number] 2.16.840.1.119328.3.579.2. 593 1940 Unknown [id number] 2.16.840.1.635429.3.579.2. 593 1940 Unknown [id number] 2.16.840.1.975133.3.579.2. 593 1940 Unknown [id number] 2.16.840.1.353334.3.579.2. 1259 1940 Unknown [id number] 2.16.840.1.832009.3.579.2. 1259 1940 Unknown [id number] 2.16.840.1.844130.3.579.2. 1259 1940 Unknown [id number] 2.16.840.1.515772.3.579.2. 1259 1940 Unknown [id number] 2.16.840.1.275708.3.579.2. 1259 1940 Unknown [id number] 2.16.840.1.838185.3.579.2. 1259 Unknown [id number] 2.16.840.1.810604.3.579.2. 531 Unknown [id number] 2.16.840.1.143103.3.579.2. 531 Unknown [id number] 2.16.840.1.998674.3.579.2. 531 Unknown [id number] [id number]. 531 Unknown [id number]. 531 Social History Date Type Detail Facility Tobacco smoking stat [facility] Unknown if ever smoked [facility] Work Phone: Start: 1940 Sex Assigned At Female F [facility] Start: 03-09-2022 End: 02-15-2024 Tobacco smoking status RIIS Never smoked tobacco (finding) [facility] Start: 02-15-2024 End: 02-18-2025 Sex Assigned At [facility] Other Start: 05-17-2022 Tobacco smoking stat [facility] Tobacco smoking consumption unknown [facility] Start: 1940 Sex Assigned At Not on file [facility] Start: 05-07-2022 End: 08-23-2022 Exposure to SARS-CoV-2 (event) Not sure [facility] Start: 02-15-2024 End: 10-24-2024 Tobacco use and exposure Smokeless tobacco non-user [facility] Start: 02-15-2024 End: 02-18-2025 Alcoholic beverage intake Lifetime non-drinker (finding) [facility] Start: 02-15-2024 End: 02-18-2025 History of Social function [facility] Start: 02-15-2024 Alcohol Comment coffee: 1-2 daily NO [facility] Has the electric, ga s, oil, or water Homeschool Snowboarding threatened to shut off services in your home in past 12Mo No [facility] (I/We) worried carola er (my/our) food would run out before (I/we) got money to buy more. Never true [facility] In the past 12 month s, has lack of transportation kept you from medical appointments or from getting medications? No [facility] Start: 11-02-2024 Gender identity Identifies as female gender (finding) [facility] NEGATED: Highlighted rowStart: NINF History of tobacco use Passive smoker [facility] Medical Equipment Procedure Code Equipment Code Equipment Origin al Text Equipment Identifier Dates [id number] Start: 12-03-2024 End: 12-03-2025 Goals Date Patient Goal Desired Activity /State Functional Status Date Assessment Result Facility 02-18-2025 Patient Health Questionnaire 2 item (PHQ-2) [Reported] [facility] 10-21-2024 Are you deaf, or do you have serious difficulty hearing No 10/21/2024 6:01 PM Izabel Longo RN [facility] 10-21-2024 Are you blind, or do you have serious difficulty seeing, even when wearing glasses No 10/21/2024 6:01 PM Izabel Longo, ELFEGO [facility] 10-21-2024 Do you have serious difficulty walking or climbing stairs No 10/21/2024 6:01 PM Izabel Longo, ELFEGO [facility] 10-21-2024 Do you have difficul ty dressing or bathing No 10/21/2024 6:01 PM Izabel Longo, ELFEGO [facility] 10-21-2024 Because of a physica l, mental, or emotional condition, do you have difficulty doing errands alone such as visiting a physician's office or shopping No 10/21/2024 6:01 PM Izabel Longo RN No [facility] 04-15-2022 Functional status 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 is 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 Baseline [facility] Work Phone: 03-28-2022 Functional status Patient is 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 Baseline [facility] Work Phone: 03-24-2022 Functional status Patient Not at Baseline [facility] Work Phone: [facility] Mental Status Date Assessment Result Facility 10-21-2024 Because of a physica l, mental, or emotional condition, do you have serious difficulty concentrating, remembering, or making decisions No 10/21/2024 6:01 PM Izabel Longo, ELFEGO No [facility] 04-15-2022 Cognitive function Cognitive Sta tus Patient at Baseline [facility] Work Phone: 03-28-2022 Cognitive function Cognitive Sta tus Patient at Baseline [facility] Work Phone: 03-24-2022 Cognitive function Cognitive Sta tus Patient Not at Baseline [facility] Work Phone: Clinical Notes 03-23-2022 to 02-18-2025 Galindo Miller NP - 02/18/2025 11:23 AM Jasen Miller NP - 02/18/2025 10:30 AM Jasen Miller NP - 02/18/2025 6:24 AM Jasen Miller NP - 02/18/2025 6:24 AM EDTPatient Instructions Note Date & Type Note Facility 02-18-2025 History of Present illness Narrative Associated Problem(s): Acute gastric ulcer without hemorrhage or perforation Had fu EGD in October no malignancy Continue PPI BID Images from the original note were not included. Saeed Sarabia is a 84 y.o. 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 The current episode started more than 1 year ago. The problem is unchanged. The problem is controlled. Associated symptoms include peripheral edema (right foot). Pertinent negatives include no blurred vision, chest pain, headaches, palpitations or shortness of breath. There are no associated agents to hypertension. Risk factors for coronary artery disease include diabetes mellitus, dyslipidemia and sedentary lifestyle. Past treatments include beta blockers, BONIFACIO inhibitors and diuretics. The current treatment provides moderate improvement. There are no compliance problems. Hypertensive end-organ damage includes CAD/ME. There is no history of heart failure. Diabetes She presents for her follow-up diabetic visit. She has type 2 diabetes mellitus. Her disease course has been stable. There are no hypoglycemic associated symptoms. Pertinent negatives for hypoglycemia include no dizziness, headaches, nervousness/anxiousness, seizures or tremors. Pertinent negatives for diabetes include no blurred vision, no chest pain, no polydipsia, no polyphagia, no polyuria and no visual change. There are no hypoglycemic complications. Symptoms are stable. Diabetic complications include heart disease and peripheral neuropathy. Risk factors for coronary artery disease include diabetes mellitus, dyslipidemia, hypertension and sedentary lifestyle. Current diabetic treatment includes oral agent (dual therapy). She is compliant with treatment all of the time. She participates in exercise intermittently. Her overall blood glucose range is 90-110 mg/dl. An BONIFACIO inhibitor/angiotensin II receptor donna is being taken. 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 SUBJECTIVE: MEDICATIONS: Current Outpatient Medications Medication Instructions Blood Glucose Monitoring Suppl (True Metrix Meter) w/Device kit USE DIRECTED bumetanide (BUMEX) 1 mg, Oral, Daily PRN cyanocobalamin (VITAMIN B-12) 1,000 mcg, Oral, Daily RT Drug [place] Unilet Lancets 30G [facility] use to test BLOOD SUGAR DAILY Eliquis 5 mg, 2 times daily ezetimibe (ZETIA) 10 mg, Nightly fluconazole (Diflucan) 150 MG tablet Take 1 dose, then repeat in 3 days glipiZIDE (GLUCOTROL) 5 mg, Oral, 2 times daily before meals glucose blood (Accu-Chek Guide Test) test strip Use once daily. Use as instructed lisinopril 20 mg, Daily RT MAGNESIUM PO 250 mg, Oral, Daily RT metFORMIN (GLUCOPHAGE) 1,000 mg, Oral, 2 times daily with meals metoprolol succinate XL (TOPROL-XL) 100 mg, Every morning Multiple Vitamins-Minerals (Oncovite) tablet 1 tablet, Daily RT nitroglycerin (NITROSTAT) 0.4 mg pantoprazole (PROTONIX) 40 mg, Oral, 2 times daily before meals rosuvastatin (CRESTOR) 5 mg, Nightly spironolactone (ALDACTONE) 25 mg, Once ALLERGIES: Allergies Allergen Reactions Morphine GI intolerance and Nausea Only REVIEW OF SYMPTOMS: Review of Systems Constitutional: Negative for appetite change, chills and fever. HENT: Negative for congestion, ear pain and sore throat. Eyes: Negative for blurred vision, pain, discharge, redness and visual disturbance. Respiratory: Negative for cough, shortness of breath and wheezing. Cardiovascular: Positive for leg swelling. Negative for chest pain and palpitations. Gastrointestinal: Negative for abdominal pain, blood in stool, constipation, diarrhea, nausea and vomiting. Genitourinary: Negative for difficulty urinating, dysuria and frequency. Musculoskeletal: Positive for arthralgias. Negative for back pain, joint swelling and myalgias. Skin: Negative for rash and wound. Neurological: Negative for dizziness, tremors, seizures, syncope and headaches. Psychiatric/Behavioral: Negative for behavioral problems, self-injury and suicidal ideas. The patient is not nervous/anxious. Hematological: Does not bruise/bleed easily. Endocrine: Negative for polydipsia, polyphagia and polyuria. Allergic/Immunologic: Negative for environmental allergies and food allergies. PAST MEDICAL HISTORY No past medical history on file. No past surgical history on file. family history is not on file. OBJECTIVE: Visit Vitals BP 128/70 (BP Location: Left arm, Patient Position: Sitting, BP Cuff Size: Adult long) Pulse 57 Temp 97.8 F (Temporal) Resp 20 Wt 160 lb 9.6 oz SpO2 95% BMI 27.57 kg/m Smoking Status Never BSA 1.81 m Physical Exam Vitals and nursing note reviewed. Constitutional: General: She is not in acute distress. Appearance: Normal appearance. HENT: Head: Normocephalic and atraumatic. Right Ear: [...] sounds. Abdominal: General: Bowel sounds are normal. There is no distension. Palpations: Abdomen is soft. There is no mass. Tenderness: There is no abdominal tenderness. Musculoskeletal: General: Normal range of motion. Cervical back: Normal range of motion and neck supple. Right lower leg: Edema present. Skin: General: Skin is warm and dry. Capillary Refill: Capillary refill takes 2 to 3 seconds. Findings: No rash. Neurological: General: No focal deficit present. Mental Status: She is alert and oriented to person, place, and time. Psychiatric: Mood and Affect: Mood normal. Behavior: Behavior normal. Thought Content: Thought content normal. Judgment: Judgment normal. ASSESSMENT AND PLAN: No follow-ups on file. Problem List Items Addressed This Visit Chronic atrial fibrillation, unspecified (CMS/HCC) Continue eliquis therapy as b donna therapy No current symptoms, NSR today Continue w cardiology Benign essential HTN (CMS/HCC) Please check blood pressure daily and record DASH diet Limit caffeine Take medication as directed Contact office if chest pain, pressure, dizziness, shortness of breath, swelling legs Recommend slow position changes Current meds: lisinopril, metoprolol, spironolactone Chronic diastolic (congestive) heart failure Continue with cardiology as well as diuretics, BONIFACIO and b donna Foot drop, 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 Uses a walker, and brace as well for foot drop Hyperlipidemia (CMS/HCC) On zetia and crestor Check labs yearly and prn dose chagnes Type 2 diabetes mellitus without complication Check blood sugars daily, notify if <70 [...] glipizide, metformin, bonifacio, statin, A1c 5.7% 01/31/25 Encounter for subsequent annual wellness visit (AWV) in Medicare patient Reviewed Ht/Wt/BMI Recommend eye exam yearly Recommend dental exams twice a year Exercises is recommended most days of the week (appropriate as chronic conditions allow) Follow up yearly and prn Type 2 diabetes mellitus with diabetic neuropathy, unspecified (CMS/HCC) - Primary Close monitoring of feet for s/s wounds, callous, or infection Good blood sugar control Acute gastric ulcer without hemorrhage or perforation Relevant Medications pantoprazole (ProtoNix) 40 MG EC tablet Type 2 diabetes mellitus with diabetic peripheral angiopathy without gangrene (CMS/HCC) Continue with risk factor modification and control blood glucose as well as BP Other Visit Diagnoses Type 2 diabetes mellitus without complications Relevant Medications metFORMIN (Glucophage) 1000 MG tablet glipiZIDE (Glucotrol) 5 MG tablet Associated Problem(s): Encounter for subsequent annual wellness visit (AWV) in Medicare patient Reviewed Ht/Wt/BMI Recommend eye exam yearly Recommend dental exams twice a year Exercises is recommended most days of the week (appropriate as chronic conditions allow) Follow up yearly and prn Associated Problem(s): Hyperlipidemia (CMS/HCC) On zetia and crestor Check labs yearly and prn dose chagnes Associated Problem(s): Type 2 diabetes mellitus without complication Check blood sugars daily, notify if <70 [...] glipizide, metformin, bonifacio, statin, A1c 5.7% 01/31/25 Associated Problem(s): Foot drop, 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 Uses a walker, and brace as well for foot drop Associated Problem(s): Type 2 diabetes mellitus with diabetic peripheral angiopathy without gangrene (CMS/HCC) Continue with risk factor modification and control blood glucose as well as BP Associated Problem(s): Chronic diastolic (congestive) heart failure Continue with cardiology as well as diuretics, BONIFACIO and b donna Associated Problem(s): Chronic atrial fibrillation, unspecified (CMS/HCC) Continue eliquis therapy as b donna therapy No current symptoms, NSR today Continue w cardiology Associated Problem(s): Benign essential HTN (CMS/HCC) Please check blood pressure daily and record DASH diet Limit caffeine Take medication as directed Contact office if chest pain, pressure, dizziness, shortness of breath, swelling legs Recommend slow position changes Current meds: lisinopril, metoprolol, spironolactone Associated Problem(s): Type 2 diabetes mellitus with diabetic neuropathy, unspecified (CMS/HCC) Close monitoring of feet for s/s wounds, callous, or infection Good blood sugar control documented in this encounter [facility] 02-18-2025 Instructions Galindo Miller NP - 02/18/2025 10:30 AM EDT No labs needed, documented in this encounter [facility] 01-17-2025 Instructions Dinora Carroll APRN.CNP - 01/17/2025 10:47 AM EDT Thank you for seeing me in clinic today. As we discussed, my recommendations are as follows: 1.Consult to general surgery If you have any questions about the above treatment plan, please do not hesitate to call the office or send me a [employer] message. documented in this encounter [facility] 01-17-2025 History and physical note Consultation requested by Dr. Rolanda Chaparro for an opinion regarding weight loss. My final recommendations will be communicated back to the requesting physician by way of shared medical record or fax. REASON FOR VISIT: weight loss HPI: Saeed Sarabia is a 84 year old female who presents for unintentional weight loss and a history of abdominal pain. Approximately one year ago, patient began experiencing abdominal pain. Initial evaluations at [facility] suggested the presence of multiple gallstones, with recommendations for cholecystectomy. However, subsequent evaluations by another physician at the same hospital contradicted this recommendation, stating that surgery was not necessary. After a week of hospitalization and multiple tests, no definitive cause for the abdominal pain was identified. Due to persistent severe pain, patient was taken to the [facility] Room, where further evaluations were conducted, including an endoscopy and various scans. A colonoscopy performed at [facility] revealed non-cancerous polyps, which were removed. During the evaluations at [facility], a scan indicated uterine thickening, leading to concerns about potential cancer. A golf ball cover treater at [facility] subsequently removed a polyp measuring 2 cm by 9 cm from the uterus and cervix. Following this procedure, patient's abdominal pain reportedly resolved. Patient has a known history of gallstones, with conflicting medical opinions on the necessity of cholecystectomy. One physician at [facility] recommended immediate surgery, stating the gallbladder was completely full of stones, while another physician at [facility] advised against it. Patient has also experienced significant unintentional weight loss, approximately 30 pounds over the past six months, but her weight has stabilized recently. She is diabetic and notes that her medication influences her appetite. She reportedly eats like a bird and drinks two 24-ounce cups of water daily, along with protein drinks. . Past Clinical Work-Up: [facility] 10/18/24: CHOLELITHIASIS. 11/13/24: Normal perianal and digital rectal exam Two sessile polyps in the cecum, measuring 3-5 mm. Removed with cold snare. Removal and retrieval was complete One sessile polyp in the ascending colon, measuring 4 mm. Removed with cold snare. Removal and retrieval was complete One sessile polyp in the ascending colon, one fold distal to the ileocecal valve on the same side, measuring 20 mm. Eleview was injected to raise the polyp and separate it from the muscularis propria. The polyp was then resected using piecemeal cold snare polypectomy. 4 hemostatic clips were used to close the mucosal defect. Removal and retrieval was complete Moderate diverticulosis in the sigmoid and descending colons External hemorrhoids seen in the rectum on retroflexion EGD 10/21/24: - Normal duodenal bulb and second portion of the duodenum. Biopsies were taken with a cold forceps to rule out Whipple's Disease. - Erythematous mucosa in the antrum. Biopsied. - Z-line, 38 cm from the incisors. - Normal esophagus. CTAP 10/16/24: IMPRESSION: 1. Bilateral nonobstructing renal calculi. 2. Suggestion of endometrial thickening measuring 15 mm. Recommend nonemergent pelvic ultrasound for further evaluation. 3. Cholelithiasis. 4. Diverticulosis. ALLERGIES Allergen Reactions Morphine GI Upset PAST MEDICAL HISTORY Diagnosis Date A-fib (HCC) CAD (coronary artery disease) Heart attack (HCC) HTN (hypertension) PAST SURGICAL HISTORY Procedure Laterality Date BACK SURGERY HX HEART SURGERY HX 2006 stent placed FAMILY HISTORY Problem Relation Age of Onset Ischemic Heart Disease Mother Ischemic Heart Disease Father Social History Tobacco Use Smoking status: Never Passive exposure: Never Smokeless tobacco: Never Substance Use Topics Alcohol use: Never Drug use: Never Current Outpatient Medications Medication Sig cyanocobalamin (VITAMIN B-12) 1,000 mcg tab Take 1,000 mcg by mouth once daily. Magnesium 250 mg tab Take 250 mg by mouth once daily. therapeutic multivitamin (THERA VITAMIN) tablet Take 1 tablet by mouth once daily. pantoprazole DR (PROTONIX) 40 mg tablet TAKE 1 TABLET BY MOUTH TWICE DAILY (IN THE MORNING and IN THE EVENING) BEFORE MEALS metFORMIN (GLUCOPHAGE) 500 mg tablet Take 1 tablet by mouth twice daily with meals. apixaban (ELIQUIS) 5 mg tab(s) Take 1 tablet by mouth twice daily. acetaminophen (TYLENOL) 325 mg tablet 2 tablets by ORAL/FEEDING TUBE route every 4 hours as needed for pain or fever (specify). bumetanide (BUMEX) 1 mg tablet Take 0.5-1 mg by mouth once daily as needed (edema). ezetimibe (ZETIA) 10 mg tablet Take 10 mg by mouth once daily. lisinopril (ZESTRIL, PRINIVIL) 5 mg tablet Take 20 mg by mouth once daily. metoprolol succinate ER (TOPROL XL) 100 mg Take 100 mg by mouth once daily. rosuvastatin (CRESTOR) 5 mg tablet Take 5 mg by mouth once daily. glipiZIDE (GLUCOTROL) 5 mg tablet Take 5 mg by mouth twice daily before meals. spironolactone (ALDACTONE) 25 mg tablet Take 12.5 mg by mouth once daily. No current facility-administered medications for this visit. I have confirmed and edited, if necessary, the PFSH obtained by others. REVIEW OF SYSTEMS: CONSTITUTIONAL: Negative for malaise or fevers, + weight loss that has stabilized HEENT: Negative for frequent/significant headaches, changes in hearing/vision, nose bleeds or other nasal problems RESPIRATORY: Negative for cough, hemoptysis, wheezing or dyspnea CARDIOVASCULAR: Negative for chest pain, palpitations, syncope or lightheadedness GI: See HPI NEURO: Negative for encephalopathy, tremor or gait abnormality PSYCH: Negative for new changes in mood or affect I have confirmed and edited, if necessary, the PFSH obtained by others. PHYSICAL EXAM: BP 167/74 Pulse 62 Wt 73.1 kg (161 lb 2.5 oz) SpO2 99% BMI 26.01 kg/m Gen: Comfortable in NAD Head: Normocephalic, atraumatic Skin: No jaundice, rashes or skin lesions Eyes: Sclera anicteric, conjunctiva pink Lungs: unlabored breathing Abd: Soft, non-distended, non-tender, bowel sounds present, no palpable masses or organomegaly Rectal Exam: Examination deferred by patient Neuro: Alert and oriented, no tremor or gross focal motor deficits Psych: Congruent mood and affect, appropriate insight and judgement ASSESSMENT/PLAN: Ms. Sarabia is a 84 year old female with a history of A fib, CAD, HTN, and T2 DM presents for weight loss. 1. Calculus of gallbladder without cholecystitis without obstruction (K80.20) Gallstones identified, but no current symptoms of cholecystitis or biliary obstruction. Abdominal pain has resolved following the removal of a uterine polyp. - Educated on the benign nature of asymptomatic gallstones and the potential symptoms that would warrant surgical intervention, such as nausea, vomiting, jaundice, elevated liver enzymes and right upper quadrant pain. - Placed a consult for general surgery in case symptoms develop in the future. 2. Unintentional weight loss (R63.4) Weight loss of approximately 30 pounds over six months, now stable. Extensive evaluations including EGD, colonoscopy, and imaging have ruled out significant gastrointestinal pathology. Uterine polyp removal has alleviated abdominal pain. - Continue current nutritional intake, including protein drinks to maintain weight. - Monitor for any recurrence of symptoms or further weight loss. This note was dictated using [employer] speech recognition software and may contain some errors that were a result of the program not accurately transcribing what was dictated. The patient consented to the use of [employer] software for draft documentation of the visit consistent with [facility] s Notice of Privacy Practices. Dinora Carroll APRN.CNP [facility] 01-17-2025 History and physical note Consultation requested by Dr. Rolanda Chaparro for an opinion regarding weight loss. My final recommendations will be communicated back to the requesting physician by way of shared medical record or fax. REASON FOR VISIT: weight loss HPI: Saeed Sarabia is a 84 year old female who presents for unintentional weight loss and a history of abdominal pain. Approximately one year ago, patient began experiencing abdominal pain. Initial evaluations at [facility] suggested the presence of multiple gallstones, with recommendations for cholecystectomy. However, subsequent evaluations by another physician at the same hospital contradicted this recommendation, stating that surgery was not necessary. After a week of hospitalization and multiple tests, no definitive cause for the abdominal pain was identified. Due to persistent severe pain, patient was taken to the [facility] Room, where further evaluations were conducted, including an endoscopy and various scans. A colonoscopy performed at [facility] revealed non-cancerous polyps, which were removed. During the evaluations at [facility], a scan indicated uterine thickening, leading to concerns about potential cancer. A golf ball cover treater at [facility] subsequently removed a polyp measuring 2 cm by 9 cm from the uterus and cervix. Following this procedure, patient's abdominal pain reportedly resolved. Patient has a known history of gallstones, with conflicting medical opinions on the necessity of cholecystectomy. One physician at [facility] recommended immediate surgery, stating the gallbladder was completely full of stones, while another physician at [facility] advised against it. Patient has also experienced significant unintentional weight loss, approximately 30 pounds over the past six months, but her weight has stabilized recently. She is diabetic and notes that her medication influences her appetite. She reportedly eats like a bird and drinks two 24-ounce cups of water daily, along with protein drinks. . Past Clinical Work-Up: [facility] 10/18/24: CHOLELITHIASIS. 11/13/24: Normal perianal and digital rectal exam Two sessile polyps in the cecum, measuring 3-5 mm. Removed with cold snare. Removal and retrieval was complete One sessile polyp in the ascending colon, measuring 4 mm. Removed with cold snare. Removal and retrieval was complete One sessile polyp in the ascending colon, one fold distal to the ileocecal valve on the same side, measuring 20 mm. Eleview was injected to raise the polyp and separate it from the muscularis propria. The polyp was then resected using piecemeal cold snare polypectomy. 4 hemostatic clips were used to close the mucosal defect. Removal and retrieval was complete Moderate diverticulosis in the sigmoid and descending colons External hemorrhoids seen in the rectum on retroflexion EGD 10/21/24: - Normal duodenal bulb and second portion of the duodenum. Biopsies were taken with a cold forceps to rule out Whipple's Disease. - Erythematous mucosa in the antrum. Biopsied. - Z-line, 38 cm from the incisors. - Normal esophagus. CTAP 10/16/24: IMPRESSION: 1. Bilateral nonobstructing renal calculi. 2. Suggestion of endometrial thickening measuring 15 mm. Recommend nonemergent pelvic ultrasound for further evaluation. 3. Cholelithiasis. 4. Diverticulosis. ALLERGIES Allergen Reactions Morphine GI Upset PAST MEDICAL HISTORY Diagnosis Date A-fib (HCC) CAD (coronary artery disease) Heart attack (HCC) HTN (hypertension) PAST SURGICAL HISTORY Procedure Laterality Date BACK SURGERY HX HEART SURGERY HX 2006 stent placed FAMILY HISTORY Problem Relation Age of Onset Ischemic Heart Disease Mother Ischemic Heart Disease Father Social History Tobacco Use Smoking status: Never Passive exposure: Never Smokeless tobacco: Never Substance Use Topics Alcohol use: Never Drug use: Never Current Outpatient Medications Medication Sig cyanocobalamin (VITAMIN B-12) 1,000 mcg tab Take 1,000 mcg by mouth once daily. Magnesium 250 mg tab Take 250 mg by mouth once daily. therapeutic multivitamin (THERA VITAMIN) tablet Take 1 tablet by mouth once daily. pantoprazole DR (PROTONIX) 40 mg tablet TAKE 1 TABLET BY MOUTH TWICE DAILY (IN THE MORNING and IN THE EVENING) BEFORE MEALS metFORMIN (GLUCOPHAGE) 500 mg tablet Take 1 tablet by mouth twice daily with meals. apixaban (ELIQUIS) 5 mg tab(s) Take 1 tablet by mouth twice daily. acetaminophen (TYLENOL) 325 mg tablet 2 tablets by ORAL/FEEDING TUBE route every 4 hours as needed for pain or fever (specify). bumetanide (BUMEX) 1 mg tablet Take 0.5-1 mg by mouth once daily as needed (edema). ezetimibe (ZETIA) 10 mg tablet Take 10 mg by mouth once daily. lisinopril (ZESTRIL, PRINIVIL) 5 mg tablet Take 20 mg by mouth once daily. metoprolol succinate ER (TOPROL XL) 100 mg Take 100 mg by mouth once daily. rosuvastatin (CRESTOR) 5 mg tablet Take 5 mg by mouth once daily. glipiZIDE (GLUCOTROL) 5 mg tablet Take 5 mg by mouth twice daily before meals. spironolactone (ALDACTONE) 25 mg tablet Take 12.5 mg by mouth once daily. No current facility-administered medications for this visit. I have confirmed and edited, if necessary, the PFSH obtained by others. REVIEW OF SYSTEMS: CONSTITUTIONAL: Negative for malaise or fevers, + weight loss that has stabilized HEENT: Negative for frequent/significant headaches, changes in hearing/vision, nose bleeds or other nasal problems RESPIRATORY: Negative for cough, hemoptysis, wheezing or dyspnea CARDIOVASCULAR: Negative for chest pain, palpitations, syncope or lightheadedness GI: See HPI NEURO: Negative for encephalopathy, tremor or gait abnormality PSYCH: Negative for new changes in mood or affect I have confirmed and edited, if necessary, the PFSH obtained by others. PHYSICAL EXAM: BP 167/74 Pulse 62 Wt 73.1 kg (161 lb 2.5 oz) SpO2 99% BMI 26.01 kg/m Gen: Comfortable in NAD Head: Normocephalic, atraumatic Skin: No jaundice, rashes or skin lesions Eyes: Sclera anicteric, conjunctiva pink Lungs: unlabored breathing Abd: Soft, non-distended, non-tender, bowel sounds present, no palpable masses or organomegaly Rectal Exam: Examination deferred by patient Neuro: Alert and oriented, no tremor or gross focal motor deficits Psych: Congruent mood and affect, appropriate insight and judgement ASSESSMENT/PLAN: Ms. Sarabia is a 84 year old female with a history of A fib, CAD, HTN, and T2 DM presents for weight loss. 1. Calculus of gallbladder without cholecystitis without obstruction (K80.20) Gallstones identified, but no current symptoms of cholecystitis or biliary obstruction. Abdominal pain has resolved following the removal of a uterine polyp. - Educated on the benign nature of asymptomatic gallstones and the potential symptoms that would warrant surgical intervention, such as nausea, vomiting, jaundice, elevated liver enzymes and right upper quadrant pain. - Placed a consult for general surgery in case symptoms develop in the future. 2. Unintentional weight loss (R63.4) Weight loss of approximately 30 pounds over six months, now stable. Extensive evaluations including EGD, colonoscopy, and imaging have ruled out significant gastrointestinal pathology. Uterine polyp removal has alleviated abdominal pain. - Continue current nutritional intake, including protein drinks to maintain weight. - Monitor for any recurrence of symptoms or further weight loss. This note was dictated using [employer] speech recognition software and may contain some errors that were a result of the program not accurately transcribing what was dictated. The patient consented to the use of [employer] software for draft documentation of the visit consistent with [facility] s Notice of Privacy Practices. Dinora Carroll APRN.CNP documented in this encounter [facility] 12-17-2024 Note HNO ID: [id number] Author: LUCIANA GREEN DO Service: ? Author Type: Physician Type: Progress Notes Filed: 12/17/2024 12:51 Note Text: DATE OF SERVICE: 12/17/2024 PROBLEM: Saeed Sarabia presents for postop visit. SURGERY AND DATE: 12/06/2024, Operative hysteroscopy, polypectomy PATHOLOGY: A. Uterus, endometrium, polypectomy -Fragments of benign endometrial polyp B. Uterus, endometrium, dilation and curettage -Fragments of superficial inactive endometrium -Fragments of benign endometrial polyp SUBJECTIVE/INTERVAL HISTORY: Saeed Sarabia feels well. Denies SOB, CP, cough. Appetite is good. Normal bowel and bladder function. Pain is resolved. No bleeding SENSITIVE EXAM: Sensitive exam declined. Discussed rationale and impact on treatment. OBJECTIVE: VITALS: BP 120/70 Pulse 70 Ht 167.6 cm (5' 6 ) Wt 72.5 kg (159 lb 13.3 oz) SpO2 97% BMI 25.80 kg/m? HEENT: Normocephalic, atraumatic, mucus membranes moist, and no lesions LUNGS: Normal work of breathing. HEART: Regular rate. ABDOMEN: Abdomen soft, non-tender PELVIC: offered, declined ASSESSMENT: S/p operative hysteroscopy, polypectomy, healing well PLAN: 1. Discussed results of pathology and implications with patient. 2. Postop restrictions reviewed. Luciana Green DO [facility] 12-17-2024 History of Present illness Narrative DATE OF SERVICE: 12/17/2024 PROBLEM: Saeed Sarabia presents for postop visit. SURGERY & DATE: 12/06/2024, Operative hysteroscopy, polypectomy PATHOLOGY: A. Uterus, endometrium, polypectomy -Fragments of benign endometrial polyp B. Uterus, endometrium, dilation and curettage -Fragments of superficial inactive endometrium -Fragments of benign endometrial polyp SUBJECTIVE/INTERVAL HISTORY: Saeed Sarabia feels well. Denies SOB, CP, cough. Appetite is good. Normal bowel and bladder function. Pain is resolved. No bleeding SENSITIVE EXAM: Sensitive exam declined. Discussed rationale and impact on treatment. OBJECTIVE: VITALS: BP 120/70 Pulse 70 Ht 167.6 cm (5' 6 ) Wt 72.5 kg (159 lb 13.3 oz) SpO2 97% BMI 25.80 kg/m HEENT: Normocephalic, atraumatic, mucus membranes moist, and no lesions LUNGS: Normal work of breathing. HEART: Regular rate. ABDOMEN: Abdomen soft, non-tender PELVIC: offered, declined ASSESSMENT: S/p operative hysteroscopy, polypectomy, healing well PLAN: 1. Discussed results of pathology and implications with patient. 2. Postop restrictions reviewed. Luciana Green DO Powder Operator offered: Patient declines. documented in this encounter [facility] 12-17-2024 Note HNO ID: [id number] Author: CARA YOUNG MA Service: ? Author Type: Scrubber Operator Type: Progress Notes Filed: 12/17/2024 12:51 Note Text: Powder Operator offered: Patient declines. [facility] 12-06-2024 Note HNO ID: [id number] Author: MARGARETTE TRIANA APRN.CORK MOLDER Service: ? Author Type: Nurse Diabetes Nurse Type: Anesthesia Procedure Notes Filed: 12/06/2024 08:19 Note Text: ANESTHESIOLOGY PROCEDURE NOTE PIV General Information Procedure Start Time/Medication Administration: 12/06/2024 8:00 AM Procedure End Time: 12/06/2024 8:00 AM Patient Location: OR Staffing CORK MOLDER: Margarette Triana APRN.CORK MOLDER Performed by: CORK MOLDER Preparation Sterility Preparation: hand hygiene performed prior to procedure, surgical cap used, mask used, skin prep agent completely dried prior to procedure Site Prep: chlorhexidine Procedure Details Indication: need for IV access Needle Size/Type: 20 gauge angiocath Orientation: Right Location: Wrist Imaging Guidance Used: No SIGNATURE: Margarette Triana APRN.CORK MOLDER PATIENT NAME: Saeed Sarabia DATE: December 06, 2024 TIME: 8:19 AM CSN: [id number] [facility] 12-06-2024 Note HNO ID: [id number] Author: MARGARETTE TRIANA APRN.CORK MOLDER Service: ? Author Type: Nurse Diabetes Nurse Type: Anesthesia Procedure Notes Filed: 12/06/2024 08:18 Note Text: ANESTHESIOLOGY PROCEDURE NOTE Airway General Information Procedure Start Time/Medication Administration: 12/06/2024 7:45 AM Procedure End Time: 12/06/2024 7:45 AM Patient location during procedure: OR Patient identity confirmed: arm band and patient Staffing CORK MOLDER: Margarette Triana APRN.CORK MOLDER Performed by: PACO Indications and Patient Condition Indications for airway management: anesthesia Preoxygenated: yes anesthesia circuit Patient position: sniffing Method: sleep Difficult Mask: No Final Airway Details Final airway type: endotracheal airway Final Endotracheal Airway: ETT Cuffed: yes Successful intubation technique: video laryngoscopy Devices used: [employer] Endotracheal tube insertion site: oral Blade size: #3 ETT size (mm): 7.0 Measured from: lips Measurement (cm): 21 Placement verified by: capnometry Cormack-Lehane Classification: grade I - full view of glottis Number of attempts at approach: 1 Airway not difficult Comments Atraumatic intubation. Dentition and lips remain the same as preop. SIGNATURE: Margarette Triana APRN.CORK MOLDER PATIENT NAME: Saeed Sarabia DATE: December 06, 2024 TIME: 8:17 AM CSN: [id number] [facility] 12-03-2024 History of Present illness Narrative Pt has surgery on Monday Pt needs a refill on her test strips *whatever insurance will cover Images from the original note were not included. Saeed Sarabia is a 84 y.o. female presents with chief complaint of No chief complaint on file. HPI: Here for a recheck Is going to have polyp removed from cervix this week Denies any chest pain/pressure or dyspnea No abd pain, bowels moving well no other c/o at this time SUBJECTIVE: MEDICATIONS: Current Outpatient Medications Medication Instructions bumetanide (BUMEX) 1 mg, Oral, Daily PRN cyanocobalamin (VITAMIN B-12) 1,000 mcg, Oral, Daily RT Eliquis 5 mg, 2 times daily ezetimibe (ZETIA) 10 mg, Nightly fluconazole (Diflucan) 150 MG tablet Take 1 dose, then repeat in 3 days glipiZIDE (GLUCOTROL) 5 mg, Oral, 2 times daily before meals lisinopril 20 mg, Daily RT MAGNESIUM PO 250 mg, Oral, Daily RT metFORMIN (GLUCOPHAGE) 1,000 mg, Oral, 2 times daily with meals metoprolol succinate XL (TOPROL-XL) 100 mg, Every morning Multiple Vitamins-Minerals (Oncovite) tablet 1 tablet, Daily RT nitroglycerin (NITROSTAT) 0.4 mg pantoprazole (PROTONIX) 40 mg, Oral, 2 times daily before meals rosuvastatin (CRESTOR) 5 mg, Nightly spironolactone (ALDACTONE) 25 mg, Once ALLERGIES: Allergies Allergen Reactions Morphine GI intolerance and Nausea Only REVIEW OF SYMPTOMS: Review of Systems Constitutional: Negative for appetite change, chills and fever. HENT: Negative for congestion, ear pain and sore throat. Eyes: Negative for pain, discharge, redness and visual disturbance. Respiratory: Negative for cough, shortness of breath and wheezing. Cardiovascular: Negative for chest pain, palpitations and leg swelling. Gastrointestinal: Negative for abdominal pain, blood in stool, constipation, diarrhea, nausea and vomiting. Genitourinary: Negative for difficulty urinating, dysuria and frequency. Musculoskeletal: Positive for arthralgias. Negative for back pain, joint swelling and myalgias. Skin: Negative for rash and wound. Neurological: Negative for dizziness, tremors, seizures, syncope and [...] not on file. OBJECTIVE: Visit Vitals BP 130/76 (BP Location: Left arm, Patient Position: Sitting, BP Cuff Size: Adult long) Pulse 64 Temp 98.2 F (Temporal) Resp 18 Wt 155 lb 6.4 oz SpO2 99% BMI 26.67 kg/m Smoking Status Never BSA 1.78 m Physical Exam Vitals and nursing note reviewed. Constitutional: General: She is not in acute distress. Appearance: Normal appearance. HENT: Head: Normocephalic and atraumatic. Right Ear: External ear normal. Left Ear: External ear normal. Nose: Nose normal. Mouth/Throat: Mouth: Mucous membranes are moist. Eyes: Extraocular Movements: Extraocular movements intact. Conjunctiva/sclera: Conjunctivae normal. Cardiovascular: Rate and Rhythm: Normal rate and regular rhythm. Pulses: Normal pulses. Heart sounds: Normal heart sounds. Pulmonary: Effort: Pulmonary effort is normal. No respiratory distress. Breath sounds: Normal breath sounds. No wheezing. Musculoskeletal: Cervical back: Normal range of motion and neck supple. Right lower leg: Edema present. Left lower leg: Edema present. Comments: Walks with a walker, wears brace to right ankle Skin: General: Skin is warm and dry. Capillary Refill: Capillary refill takes 2 to 3 seconds. Findings: No rash. Neurological: General: No focal deficit present. Mental Status: She is alert and oriented to person, place, and time. Psychiatric: Mood and Affect: Mood normal. Behavior: Behavior normal. Thought Content: Thought content normal. Judgment: Judgment normal. ASSESSMENT AND PLAN: Follow up in about 3 months (around 03/02/2025) for Next scheduled follow-up. Problem List Items Addressed This Visit Chronic atrial fibrillation, unspecified (CMS/HCC) Continue eliquis therapy as b donna therapy No current symptoms, NSR today Continue w cardiology Benign essential HTN (CMS/HCC) Please check blood pressure daily and record DASH diet Limit caffeine Take medication as directed Contact office if chest pain, pressure, dizziness, shortness of breath, swelling legs Recommend slow position changes Current meds: lisinopril, metoprolol, spironolactone Hyperlipidemia (CMS/HCC) On zetia and crestor Check labs yearly and prn dose chagnes Type 2 diabetes mellitus without complication (CMS/HCC) [...] meds: glipizide, metformin, bonifacio, statin, A1c 5.8% Relevant Orders POCT glycosylated hemoglobin (Hb A1C) docked device (Completed) Other thrombophilia (CMS/HCC) On eliquis Type 2 diabetes mellitus with diabetic neuropathy, unspecified (CMS/HCC) - Primary Close monitoring of feet for s/s wounds, callous, or infection Good blood sugar control Thickened endometrium Had recent US with [facility] yesterday, I have reviewed notes and pelvic US Biopsy was neg for malignancy Is scheduled for hysteroscopy on 12/06/24 Acute gastric ulcer without hemorrhage or perforation Had fu EGD in October no malignancy Lower abdominal pain Has had EGD and colonoscopy: colon polyp tubular adenoma and no malignancy Had endometrial biopsy: no malignancy Type 2 diabetes mellitus with diabetic peripheral angiopathy without gangrene (CMS/HCC) Continue with risk factor modification and control blood glucose as well as BP Associated Problem(s): Thickened endometrium Had recent US with [facility] yesterday, I have reviewed notes and pelvic US Biopsy was neg for malignancy Is scheduled for hysteroscopy on 12/06/24 Associated Problem(s): Lower abdominal pain Has had EGD and colonoscopy: colon polyp tubular adenoma and no malignancy Had endometrial biopsy: no malignancy Associated Problem(s): Acute gastric ulcer without hemorrhage or perforation Had fu EGD in October no malignancy Associated Problem(s): Hyperlipidemia (CMS/HCC) On zetia and crestor Check labs yearly and prn dose chagnes Associated Problem(s): Other thrombophilia ([facility]/HCC) On eliquis Associated Problem(s): Type 2 diabetes mellitus without complication ([facility]) Check blood sugars daily, notify if <70 [...] meds: glipizide, metformin, bonifacio, statin, A1c 5.8% Associated Problem(s): Type 2 diabetes mellitus with diabetic peripheral angiopathy without gangrene ([facility]) Continue with risk factor modification and control blood glucose as well as BP Associated Problem(s): Chronic atrial fibrillation, unspecified ([facility]) Continue eliquis therapy as b donna therapy No current symptoms, NSR today Continue w cardiology Associated Problem(s): Benign essential HTN ([facility]) Please check blood pressure daily and record DASH diet Limit caffeine Take medication as directed Contact office if chest pain, pressure, dizziness, shortness of breath, swelling legs Recommend slow position changes Current meds: lisinopril, metoprolol, spironolactone Associated Problem(s): Type 2 diabetes mellitus with diabetic neuropathy, unspecified ([facility]/HCC) Close monitoring of feet for s/s wounds, callous, or infection Good blood sugar control documented in this encounter [facility] 12-03-2024 Instructions Galindo Miller NP - 12/03/2024 9:00 AM EST No med dose changes documented in this encounter [facility] 11-15-2024 Note HNO ID: [id number] Author: MAXINE KABA RT(R) Service: ? Author Type: Technologist Type: Progress Notes Filed: 11/15/2024 14:41 Note Text: Radiology Service Progress Note PATIENT NAME: Saeed Sarabia DATE OF SERVICE: November 15, 2024 TIME: 2:41 PM PATIENT IDENTITY VERIFICATION COMPLETED USING TWO (2) IDENTIFIERS: Name and Date of confirmed by patient verbally. FALL SCREENING: Has the patient had 2 falls in the last year or 1 fall with injury or currently using an Ambulatory Assistive Device (Walker, Cane, Wheelchair, Crutches, etc.)? No PATIENT GENDER DATA: Assigned female at . status: : No status: NO. PATIENT RELEVANT IMPLANT DATA REVIEWED: Not Applicable PATIENT PRESENTS WITH AN IMPLANTABLE OR ATTACHED REVIEW RN: No RADIOLOGY DEPARTMENT: General X-ray: Exam(s) Completed: Chest X-Ray PERIPHERAL IV DATA: Not applicable SIGNED BY: RT Faith(R) November 15, 2024 2:41 PM [facility] 11-15-2024 History of Present illness Narrative Radiology Service Progress Note PATIENT NAME: Saeed Sarabia DATE OF SERVICE: November 15, 2024 TIME: 2:41 PM PATIENT IDENTITY VERIFICATION COMPLETED USING TWO (2) IDENTIFIERS: Name and Date of confirmed by patient verbally. FALL SCREENING: Has the patient had 2 falls in the last year or 1 fall with injury or currently using an Ambulatory Assistive Device (Walker, Cane, Wheelchair, Crutches, etc.)? No PATIENT GENDER DATA: Assigned female at . status: : No status: NO. PATIENT RELEVANT IMPLANT DATA REVIEWED: Not Applicable PATIENT PRESENTS WITH AN IMPLANTABLE OR ATTACHED REVIEW RN: No RADIOLOGY DEPARTMENT: General X-ray: Exam(s) Completed: Chest X-Ray PERIPHERAL IV DATA: Not applicable SIGNED BY: RT Faith(R) November 15, 2024 2:41 PM documented in this encounter [facility] 11-15-2024 Instructions Maxine Singh APRN.DOG RACES MANAGER - 11/15/2024 2:13 PM EST PATIENT PREOPERATIVE INSTRUCTIONS Luciana Green DO has scheduled you for your procedure at this surgery center: [facility]: [phone] --[id number] [id number]. Please check in on the 1st floor at registration desk 6. Please read below carefully for your personalized instructions. Dietary Restrictions: - No solid food after midnight. - You may have 12 ounces of clear liquids (water, clear juices such as apple juice or gatorade, carbonated beverages, clear tea, black coffee, jello) until 2 hours before scheduled arrival at facility. Medications: Unless instructed differently below, stay on all of your medications until your surgery. If you start any new medications after today's visit, please contact your surgeon. Medications you will take the morning of surgery with a small sip of waterl : Lisinopil,Metoprolol,Protonix,Cr estor,Zetia Is Patient Diabetic:Yes Preoperative Instructions for Patient's with Diabetes Mellitus Diabetic Medication Instructions:Please take the following meds at your usual dose the day before surgery. DO NOT TAKE THE MORNING OF SURGERY; Trajenta, Metformin, Actos/Pioglitazone and Amaryl/Glimepiride. For the following Meds, please HOLD 2 DAYS PRIOR TO SURGERY: Glucotrol/Glipizide, Januvia/Sitagliptin, Glyburide, Prandin/Repaglinide, Starlix/Nateglinide,Symlin/Praml intide, Dulaglutide/Trulicity, Exenatide (Bydureon/Byetta), Semaglutide (Ozempic, Rybelsus), Laraglutide (Victoza/Saxenda), Lixsenstide (Adlyxin). Insulin Medication Instructions:N/A If you are currently using a [id number] injectable or oral medication for diabetes or weight loss such as Dulaglutide (Trulicity), Exenatide (Byetta, Bydureon), Liraglutide (Victoza, Saxenda), Semaglutide (Ozempic, Wegovy, Rybelsus), or Tirzepatide (Mounjaro), the medicine should be stopped at least 7 days before surgery. These medicines can cause food to remain in your stomach for a very long time and increase the risks from surgery and anesthesia. Not stopping the medication for a long enough time may result in your surgery being rescheduled. Blood Thinning Medications: - Stop NSAIDS (Ibuprofen, Advil, Aleve, Motrin, Celebrex, Mobic, etc.) 7 days before surgery, as directed by your surgeon. - Stop Aspirin 7 days before surgery, as directed by your surgeon. - Stop , ALL herbals and dietary supplements 7 days before surgery. - You may take Tylenol (Acetaminophen) or any of your pain medications that do not contain aspirin or NSAIDS as needed. STOP ELIQUIS 2 DAYS [place] EOP Important Reminders: - If you use CPAP/BIPAP, bring the machine with you to the surgery center. - If you are prescribed inhalers for breathing, continue using them. If you are on dialysis, please check with your dialysis center or dedicated owner operator to see if any adjustments need to be made to your schedule for the week of your surgery - Candy, mints, and tobacco products are NOT permitted the morning of surgery. - Hearing aids, dentures and glasses may be worn the morning of surgery. - NO jewelry, body piercings, makeup, hairpins or contacts are to be worn the day of surgery. If you develop symptoms such as a fever, cold, or flu, or have other changes to your health within TWO DAYS of scheduled surgery or the morning of surgery, please contact the surgery center above. Personal Belongings: -Please have photo ID and insurance cards. -If you do not have a copy of advance directives on file with us, please bring a copy with you on the day of surgery. - Leave ALL valuables and money at home or with family members. For Outpatient Procedures: - YOU MUST HAVE A RESPONSIBLE VEGETABLE PREPARER TAKE YOU HOME. A CLINICAL ATHLETIC INSTRUCTOR OR SPRING CLIPPER CANNOT BE MADE A RESPONSIBLE VEGETABLE PREPARER. - We recommend that a responsible person stays with you overnight to take care of you. - You cannot stay in a hotel alone after outpatient surgery. You will not be permitted to have your surgery, if you do not have someone to take care of you. Arrival Time for Surgery: - The Surgery Center or hospital where you are having surgery will call the afternoon before surgery (or Monday for Monday surgery) with a scheduled arrival time. - If you have not heard by 4 pm, please contact the surgery center above. Please be aware that emergency situations arise, which may delay or change your surgical time. If this happens, we will notify you as soon as possible and regret any inconvenience. If you already have an Advance Directive, please fax a copy to [phone] or email to for it to be added to your chart. If you do not have an Advance Directive, you can find the appropriate form and more information at [email or web address]. We recommend that you complete the Advance Directive form found on the website and bring it with you the day of your surgery. It can be witnessed and scanned into your chart that day. Maxine Singh APRN.CNS documented in this encounter [facility] 11-15-2024 History and physical note Images from the original note were not included. [facility] HISTORY AND PHYSICAL EXAMINATION SERVICE DATE: 11/14/2024 SERVICE TIME: 3:47 PM PRIMARY CARE PHYSICIAN: Galindo Miller CNP, LAUNDRY AIDE Assessment Patient has the following medical conditions which may affect ashley-operative course: Atrial fibrillation (HCC) Assessment: takes Eliquis daily, will stop 2 days pre op,currently stable Benign essential HTN Assessment: takes Lisinopril,Metoprolol,stable BP 147/56 taken at [facility] visit 11/15/24 CAD (coronary artery disease) Assessment: had LAD stent placed 2005 followed per [place] Hearing Officer Dr. Roberson DM type 2 (diabetes mellitus, type 2) (HCC) Assessment: takes Metformin,Glipizide currently stable Glucose Date Value Ref Range Status 10/20/2024 135 (H) 74 - 99 mg/dL Final Comment: The [place] [employer] Association (ADA) provides guidance for cutoff [...] Standards of Medical Care in Diabetes 2016, [place] [employer]. Diabetes Care. 2016.39(Suppl 1). HLD (hyperlipidemia) Assessment: takes Vic Stewart, stable Wallace Activity Status Index: METS: Walk indoors, such as around the house (1.75 METs) Do light work around the house, such as dusting or washing dishes (2.70 METs) Take care of self; that is eating, dressing, bathing, using the toilet (2.75 METs) Walk a block or two on level ground (2.75 METs) Do moderate work around the house, such as vacuuming, sweeping floors, or carrying in groceries (3.50 METs) Do yardwork, such as raking leaves, weeding, or pushing a power mower (4.50 METs) Climb a flight of stairs or walk up a hill (5.50 METs) DASI Score: 23.45 Patient denies any chest pain or undue shortness of breath with the above physical activity. Clinical Frailty Scale: 5. Mildly frail STOP-Bang Score: Has or is being treated for high blood pressure Denies snoring loudly Denies feeling tired, fatigued, or sleepy during the daytime Has not been observed to stop breathing or choking/gasping during sleep BMI less than or equal to 35 kg/m^2 Patient 50 years old or younger Does not have a large neck Non-male patient STOP-Bang Score: 1 [id number] Score: Age: >=75 Sex: female CHF history: No Hypertension history: Yes Stroke/TIA/thromboembolism history: No Vascular disease history: No Diabetes history: Yes [id number] Score: 5 ARISCAT Score: Age: >80 Preoperative SpO2: >=96% Respiratory infection in the last month: No Preoperative anemia: Yes Surgical incision: peripheral Duration of surgery: <2 hrs Emergency procedure: No ARISCAT Score: 27 ANESTHESIA FINDINGS: Intubation History: No history of difficult intubation Significant Anesthesia Considerations: none Airway History: No history of difficult airway I - PHYSICAL EVALUATION AIRWAY Patient intubated: No. Tracheostomy tube not present Mallampati: III. TM distance: >3 FB. Neck ROM: full ROM without neurological symptoms. Mouth opening: adequate. Short neck: no. Thick neck: no Wang present: no Lip Bite Test: II Microretrognathia/Micronagthia/R ecessed Chin: No DENTAL Normal dental observations. Dental findings: teeth intact. Dentures, upper: complete. II - ANESTHESIA PLAN Anesthetic Plan: other Anesthetic plan additional comments: Anesthesia choice. Beta Donna Monitoring Plan Post Procedure Analgesic Plan Prepared for Surgery: optimally prepared for surgery, pending day of surgery. Chest Xray CONSULTS: Patient does not require consults for optimization at this time The following consults have been initiated at this time: cardiology (cardiac clearance in [facility] of 11/07/[address] Jose Roberson). Planned Anesthetic: other The Following Tests/Procedures Have Been Initiated: Orders Placed This Encounter XR CHEST 2V FRONTAL/LAT Standing Status: Future Number of Occurrences: 1 Standing Expiration Date: 12/13/2025 REASON FOR VISIT: Saeed Sarabia is a 84 year old female who is scheduled for Procedure(s): EXAM UNDER ANESTHESIA PELVIC / VAGINAL (N/A) HYSTEROSCOPY SURGICAL W/SAMPLING BIOPSY OF ENDOMETRIUM &/OR POLYPECTOMY W/ OR W/O D&C (TRUCLEAR) (N/A) at the request of Dr. Green, Luciana Jon DO for consultation. My final recommendation will be communicated back to the requesting physician by way of shared medical record or letter. Subjective The patient has the following: COVID-19 Immunization Status Overdue - Covid-19 Vaccine ( season) Overdue since 06/09/2024 08/12/2022 Imm Admin: COVID-19 vaccine, age 12+ yr, bivalent (PFIZER-BIONTECH) 04/26/2022 Imm Admin: COVID-19 original vaccine, age 12+ yr, monovalent (PFIZER-BIONTECH - PURPLE TOP) 07/23/2021 Imm Admin: COVID-19 original vaccine, age 12+ yr, monovalent (PFIZER-BIONTECH - PURPLE TOP) Only the first 3 history entries have been loaded, but more history exists. CHIEF COMPLAINT: Pre Op Consultation HPI: Patient is a 84 year old female stated she has had pelvic cramping for the last few months. On pain scale, 10/10 stabbing pain. No abnormal vaginal bleeding. Consulted Dr. Green .After. Exam,Dx with Endometrial Polyp. REVIEW OF SYSTEMS: General: No weight loss, malaise or fevers. Neurological: No history of TIA's, stroke, DOG RACES MANAGER tumor, impaired sensorium, hemiplegia, paraplegia or quadraplegia. No neurological symptoms or problems. Respiratory: No history of current cough or dyspnea, or pneumonia in the past 6 weeks. No history of respiratory/pulmonary symptoms or problems. Cardiovascular: Had cardioversion for A -Fib Positive for: atrial fibrillation, CAD, hyperlipidemia and hypertension GI: No history of GI symptoms or problems. No history of esophageal varices, recent ascites, or ETOH greater than 2 drinks per day. : No history of dysuria, frequency or incontinence, stones or chronic kidney disease. No difficulty urinating, nocturia > 1 time per night or hematuria. DIAGNOSTIC IMAGING MANAGER: Negative for abnormal vaginal bleeding, abnormal vaginal discharge. Endocrine: Positive for: diabetes mellitus. Patient's diabetes mellitus is controlled by oral agents. Hematology: No history of bleeding or clotting disorder. Patient is not taking anti-coagulation or platelet medications. No history of hematological symptoms or problems. Oncology: No history of CA metastasis, chemo within 30 days, or radiotherapy within 90 days. No history of oncological symptoms or problems. Psych: No history of psychiatric symptoms or problems. Musculoskeletal: Both hands. Negative for joint pain or swelling, back pain or muscle pain. Positive for: joint pain. Skin: Negative for lesions, rash and itching. Implanted Devices: No implanted devices. PAST MEDICAL HISTORY Diagnosis Date A-fib (HCC) CAD (coronary artery disease) Heart attack (HCC) HTN (hypertension) PAST SURGICAL HISTORY Procedure Laterality Date BACK SURGERY HX HEART SURGERY HX 2006 stent placed FAMILY HISTORY Problem Relation Age of Onset Ischemic Heart Disease Mother Ischemic Heart Disease Father Social History Tobacco Use Smoking status: Never Passive exposure: Never Smokeless tobacco: Never Substance Use Topics Alcohol use: Never Drug use: Never Prior to Admission medications as of 11/15/24 1414 Medication Sig Last Dose Taking cyanocobalamin (VITAMIN B-12) 1,000 mcg tab Take 1,000 mcg by mouth once daily. Taking Yes Magnesium 250 mg tab Take 250 mg by mouth once daily. Taking Yes therapeutic multivitamin (THERA VITAMIN) tablet Take 1 tablet by mouth once daily. Taking Yes pantoprazole DR (PROTONIX) 40 mg tablet TAKE 1 TABLET BY MOUTH TWICE DAILY (IN THE MORNING and IN THE EVENING) BEFORE MEALS Taking Yes metFORMIN (GLUCOPHAGE) 500 mg tablet Take 1 tablet by mouth twice daily with meals. Taking Yes apixaban (ELIQUIS) 5 mg tab(s) Take 1 tablet by mouth twice daily. Taking Yes acetaminophen (TYLENOL) 325 mg tablet 2 tablets by ORAL/FEEDING TUBE route every 4 hours as needed for pain or fever (specify). Taking Yes bumetanide (BUMEX) 1 mg tablet Take 0.5-1 mg by mouth once daily as needed (edema). Taking Yes ezetimibe (ZETIA) 10 mg tablet Take 10 mg by mouth once daily. Taking Yes lisinopril (ZESTRIL, PRINIVIL) 5 mg tablet Take 20 mg by mouth once daily. Taking Yes metoprolol succinate ER (TOPROL XL) 100 mg Take 100 mg by mouth once daily. Taking Yes rosuvastatin (CRESTOR) 5 mg tablet Take 5 mg by mouth once daily. Taking Yes glipiZIDE (GLUCOTROL) 5 mg tablet Take 5 mg by mouth twice daily before meals. Taking Yes spironolactone (ALDACTONE) 25 mg tablet Take 12.5 mg by mouth once daily. Taking Yes No medication comments found. ALLERGIES Allergen Reactions Morphine GI Upset Objective PHYSICAL EXAM: General: alert and oriented and healthy appearance. Pertinent negatives noted - not distressed. Skin: normal color, no rash or lesions. HEENT: EOM intact, pupils equal round and pupils reactive to light. Cardiovascular: regular rate and rhythm, normal S1 and S2, no rub, murmurs, or gallop. Respiratory: normal breath sounds, no wheezes or crackles. No chest wall deformity or tenderness. Abdomen: bowel sounds present and soft. Pertinent negatives noted - not tender. Extremities: no deformity, no edema or tenderness, no joint swelling or clubbing. Neurological: normal cognition and motor skills. Gait normal. No weakness or sensory deficit. PAIN ASSESSMENT: Pain Pain Level: 9 Pain Location: Abdomen-Mid Lower Description: Shooting, Aching VITALS: BP 147/56 Pulse 64 Temp (Src) 99.2 (Temporal) Resp 16 Ht 5' 6 (1.68m) Wt 153 lb 3.5 oz (69.5kg) SpO2 97% BMI 24.74 kg/(m^2). Diagnostic tests reviewed for today's visit: Lab Value Units Date High Low HB 11.9 g/dL 10/21/2024 15.5 11.5 HCT 36.0 % 10/21/2024 46.0 36.0 WBC 6.98 k/uL 10/21/2024 11.00 3.70 PLT 278 k/uL 10/21/2024 400 150 NA 137 mmol/L 10/21/2024 144 136 K 3.7 mmol/L 10/21/2024 5.1 3.7 GLUC 135 mg/dL 10/21/2024 99 74 BUN 11 mg/dL 10/21/2024 21 7 CREAT 0.74 mg/dL 10/21/2024 0.96 0.58 PTSEC No results within date range. INR No results within date range. APTT No results within date range. ALT 16 U/L 10/21/2024 38 7 AST 20 U/L 10/21/2024 35 13 TBILI 0.3 mg/dL 10/21/2024 1.3 0.2 TSH 0.103 mIU/L 10/17/2024 4.200 0.270 Lab Value Units Date High Low HCGQT No results within date range. UHCG No results within date range. HCG, BODY* No results within date range. Lab Value Units Date High Low ABORHD No results within date range. ABSCREEN No results within date range. No results found for: HBA1C Recent Results (from the past 8760 hour(s)) ECG COMPLETE Collection Time: 10/16/24 1:36 PM Result Value Ventricular Rate 76 Atrial Rate 77 P-R Interval 113 QRS Duration 146 QT Interval 413 QTC Calculation (Bazett) 465 Calculated P Bertrand 97 Calculated R Bertrand -42 Calculated T Bertrand 100 Impression Sinus rhythm Atrial premature complex Borderline short [place] interval Left bundle branch block Abnormal ECG No Stemi Confirmed by JASON SAGASTUME MD ([id number]) on 10/16/2024 4:13:30 PM Recent Results (from the past 45420 hour(s)) ECHO Collection Time: 03/29/22 3:52 PM Impression CONCLUSIONS: - Exam indication: CAD - The left ventricle is normal in size. Left ventricular systolic function is normal. EF = 64 5% (2D biplane) - The right ventricle is normal in size. Right ventricular systolic function is normal. -No significant valvular abnormalities. - The patient has not had a prior CC echocardiographic exam for comparison. Final Instructions Given to Patient: Instructions located in the after visit summary. Patient given verbal and written preop instructions and voices comprehension and compliance. SIGNATURE: Maxine Singh APRN.CNS PATIENT NAME: Saeed Sarabia DATE: November 14, 2024 TIME: 4:02 PM PAGER/CONTACT #: [facility] 11-15-2024 History and physical note Images from the original note were not included. [facility] HISTORY AND PHYSICAL EXAMINATION SERVICE DATE: 11/14/2024 SERVICE TIME: 3:47 PM PRIMARY CARE PHYSICIAN: Galindo Miller CNP, LAUNDRY AIDE Assessment Patient has the following medical conditions which may affect ashley-operative course: Atrial fibrillation (HCC) Assessment: takes Eliquis daily, will stop 2 days pre op,currently stable Benign essential HTN Assessment: takes Lisinopril,Metoprolol,stable BP 147/56 taken at [facility] visit 11/15/24 CAD (coronary artery disease) Assessment: had LAD stent placed 2005 followed per [place] Dr. Roberson DM type 2 (diabetes mellitus, type 2) ([facility]) Assessment: takes Metformin,Glipizide currently stable Glucose Date Value Ref Range Status 10/20/2024 135 (H) 74 - 99 mg/dL Final Comment: The [place] [employer] Association (ADA) provides guidance for cutoff [...] Standards of Medical Care in Diabetes 2016, [place] [employer]. Diabetes Care. 2016.39(Suppl 1). HLD (hyperlipidemia) Assessment: takes Vic Stewart, stable Wallace Activity Status Index: METS: Walk indoors, such as around the house (1.75 METs) Do light work around the house, such as dusting or washing dishes (2.70 METs) Take care of self; that is eating, dressing, bathing, using the toilet (2.75 METs) Walk a block or two on level ground (2.75 METs) Do moderate work around the house, such as vacuuming, sweeping floors, or carrying in groceries (3.50 METs) Do yardwork, such as raking leaves, weeding, or pushing a power mower (4.50 METs) Climb a flight of stairs or walk up a hill (5.50 METs) DASI Score: 23.45 Patient denies any chest pain or undue shortness of breath with the above physical activity. Clinical Frailty Scale: 5. Mildly frail STOP-Bang Score: Has or is being treated for high blood pressure Denies snoring loudly Denies feeling tired, fatigued, or sleepy during the daytime Has not been observed to stop breathing or choking/gasping during sleep BMI less than or equal to 35 kg/m^2 Patient 50 years old or younger Does not have a large neck Non-male patient STOP-Bang Score: 1 [id number] Score: Age: >=75 Sex: female CHF history: No Hypertension history: Yes Stroke/TIA/thromboembolism history: No Vascular disease history: No Diabetes history: Yes [id number] Score: 5 ARISCAT Score: Age: >80 Preoperative SpO2: >=96% Respiratory infection in the last month: No Preoperative anemia: Yes Surgical incision: peripheral Duration of surgery: <2 hrs Emergency procedure: No ARISCAT Score: 27 ANESTHESIA FINDINGS: Intubation History: No history of difficult intubation Significant Anesthesia Considerations: none Airway History: No history of difficult airway I - PHYSICAL EVALUATION AIRWAY Patient intubated: No. Tracheostomy tube not present Mallampati: III. TM distance: >3 FB. Neck ROM: full ROM without neurological symptoms. Mouth opening: adequate. Short neck: no. Thick neck: no Wang present: no Lip Bite Test: II Microretrognathia/Micronagthia/R ecessed Chin: No DENTAL Normal dental observations. Dental findings: teeth intact. Dentures, upper: complete. II - ANESTHESIA PLAN Anesthetic Plan: other Anesthetic plan additional comments: Anesthesia choice. Beta Donna Monitoring Plan Post Procedure Analgesic Plan Prepared for Surgery: optimally prepared for surgery, pending day of surgery. Chest Xray CONSULTS: Patient does not require consults for optimization at this time The following consults have been initiated at this time: cardiology (cardiac clearance in [facility] of 11/07/[address] Jose Roberson). Planned Anesthetic: other The Following Tests/Procedures Have Been Initiated: Orders Placed This Encounter XR CHEST 2V FRONTAL/LAT Standing Status: Future Number of Occurrences: 1 Standing Expiration Date: 12/13/2025 REASON FOR VISIT: Saeed Sarabia is a 84 year old female who is scheduled for Procedure(s): EXAM UNDER ANESTHESIA PELVIC / VAGINAL (N/A) HYSTEROSCOPY SURGICAL W/SAMPLING BIOPSY OF ENDOMETRIUM &/OR POLYPECTOMY W/ OR W/O D&C (TRUCLEAR) (N/A) at the request of Luciana Bunn DO for consultation. My final recommendation will be communicated back to the requesting physician by way of shared medical record or letter. Subjective The patient has the following: COVID-19 Immunization Status Overdue - Covid-19 Vaccine ( season) Overdue since 06/09/2024 08/12/2022 Imm Admin: COVID-19 vaccine, age 12+ yr, bivalent (PFIZER-BIONTECH) 04/26/2022 Imm Admin: COVID-19 original vaccine, age 12+ yr, monovalent (PFIZER-BIONTECH - PURPLE TOP) 07/23/2021 Imm Admin: COVID-19 original vaccine, age 12+ yr, monovalent (PFIZER-BIONTECH - PURPLE TOP) Only the first 3 history entries have been loaded, but more history exists. CHIEF COMPLAINT: Pre Op Consultation HPI: Patient is a 84 year old female stated she has had pelvic cramping for the last few months. On pain scale, 10/10 stabbing pain. No abnormal vaginal bleeding. Consulted Dr. Green .After. Exam,Dx with Endometrial Polyp. REVIEW OF SYSTEMS: General: No weight loss, malaise or fevers. Neurological: No history of TIA's, stroke, DOG RACES MANAGER tumor, impaired sensorium, hemiplegia, paraplegia or quadraplegia. No neurological symptoms or problems. Respiratory: No history of current cough or dyspnea, or pneumonia in the past 6 weeks. No history of respiratory/pulmonary symptoms or problems. Cardiovascular: Had cardioversion for A -Fib Positive for: atrial fibrillation, CAD, hyperlipidemia and hypertension GI: No history of GI symptoms or problems. No history of esophageal varices, recent ascites, or ETOH greater than 2 drinks per day. : No history of dysuria, frequency or incontinence, stones or chronic kidney disease. No difficulty urinating, nocturia > 1 time per night or hematuria. DIAGNOSTIC IMAGING MANAGER: Negative for abnormal vaginal bleeding, abnormal vaginal discharge. Endocrine: Positive for: diabetes mellitus. Patient's diabetes mellitus is controlled by oral agents. Hematology: No history of bleeding or clotting disorder. Patient is not taking anti-coagulation or platelet medications. No history of hematological symptoms or problems. Oncology: No history of CA metastasis, chemo within 30 days, or radiotherapy within 90 days. No history of oncological symptoms or problems. Psych: No history of psychiatric symptoms or problems. Musculoskeletal: Both hands. Negative for joint pain or swelling, back pain or muscle pain. Positive for: joint pain. Skin: Negative for lesions, rash and itching. Implanted Devices: No implanted devices. PAST MEDICAL HISTORY Diagnosis Date A-fib (HCC) CAD (coronary artery disease) Heart attack (HCC) HTN (hypertension) PAST SURGICAL HISTORY Procedure Laterality Date BACK SURGERY HX HEART SURGERY HX 2006 stent placed FAMILY HISTORY Problem Relation Age of Onset Ischemic Heart Disease Mother Ischemic Heart Disease Father Social History Tobacco Use Smoking status: Never Passive exposure: Never Smokeless tobacco: Never Substance Use Topics Alcohol use: Never Drug use: Never Prior to Admission medications as of 11/15/24 1414 Medication Sig Last Dose Taking cyanocobalamin (VITAMIN B-12) 1,000 mcg tab Take 1,000 mcg by mouth once daily. Taking Yes Magnesium 250 mg tab Take 250 mg by mouth once daily. Taking Yes therapeutic multivitamin (THERA VITAMIN) tablet Take 1 tablet by mouth once daily. Taking Yes pantoprazole DR (PROTONIX) 40 mg tablet TAKE 1 TABLET BY MOUTH TWICE DAILY (IN THE MORNING and IN THE EVENING) BEFORE MEALS Taking Yes metFORMIN (GLUCOPHAGE) 500 mg tablet Take 1 tablet by mouth twice daily with meals. Taking Yes apixaban (ELIQUIS) 5 mg tab(s) Take 1 tablet by mouth twice daily. Taking Yes acetaminophen (TYLENOL) 325 mg tablet 2 tablets by ORAL/FEEDING TUBE route every 4 hours as needed for pain or fever (specify). Taking Yes bumetanide (BUMEX) 1 mg tablet Take 0.5-1 mg by mouth once daily as needed (edema). Taking Yes ezetimibe (ZETIA) 10 mg tablet Take 10 mg by mouth once daily. Taking Yes lisinopril (ZESTRIL, PRINIVIL) 5 mg tablet Take 20 mg by mouth once daily. Taking Yes metoprolol succinate ER (TOPROL XL) 100 mg Take 100 mg by mouth once daily. Taking Yes rosuvastatin (CRESTOR) 5 mg tablet Take 5 mg by mouth once daily. Taking Yes glipiZIDE (GLUCOTROL) 5 mg tablet Take 5 mg by mouth twice daily before meals. Taking Yes spironolactone (ALDACTONE) 25 mg tablet Take 12.5 mg by mouth once daily. Taking Yes No medication comments found. ALLERGIES Allergen Reactions Morphine GI Upset Objective PHYSICAL EXAM: General: alert and oriented and healthy appearance. Pertinent negatives noted - not distressed. Skin: normal color, no rash or lesions. HEENT: EOM intact, pupils equal round and pupils reactive to light. Cardiovascular: regular rate and rhythm, normal S1 and S2, no rub, murmurs, or gallop. Respiratory: normal breath sounds, no wheezes or crackles. No chest wall deformity or tenderness. Abdomen: bowel sounds present and soft. Pertinent negatives noted - not tender. Extremities: no deformity, no edema or tenderness, no joint swelling or clubbing. Neurological: normal cognition and motor skills. Gait normal. No weakness or sensory deficit. PAIN ASSESSMENT: Pain Pain Level: 9 Pain Location: Abdomen-Mid Lower Description: Shooting, Aching VITALS: BP 147/56 Pulse 64 Temp (Src) 99.2 (Temporal) Resp 16 Ht 5' 6 (1.68m) Wt 153 lb 3.5 oz (69.5kg) SpO2 97% BMI 24.74 kg/(m^2). Diagnostic tests reviewed for today's visit: Lab Value Units Date High Low HB 11.9 g/dL 10/21/2024 15.5 11.5 HCT 36.0 % 10/21/2024 46.0 36.0 WBC 6.98 k/uL 10/21/2024 11.00 3.70 PLT 278 k/uL 10/21/2024 400 150 NA 137 mmol/L 10/21/2024 144 136 K 3.7 mmol/L 10/21/2024 5.1 3.7 GLUC 135 mg/dL 10/21/2024 99 74 BUN 11 mg/dL 10/21/2024 21 7 CREAT 0.74 mg/dL 10/21/2024 0.96 0.58 PTSEC No results within date range. INR No results within date range. APTT No results within date range. ALT 16 U/L 10/21/2024 38 7 AST 20 U/L 10/21/2024 35 13 TBILI 0.3 mg/dL 10/21/2024 1.3 0.2 TSH 0.103 mIU/L 10/17/2024 4.200 0.270 Lab Value Units Date High Low HCGQT No results within date range. UHCG No results within date range. HCG, BODY* No results within date range. Lab Value Units Date High Low ABORHD No results within date range. ABSCREEN No results within date range. No results found for: HBA1C Recent Results (from the past 8760 hour(s)) ECG COMPLETE Collection Time: 10/16/24 1:36 PM Result Value Ventricular Rate 76 Atrial Rate 77 P-R Interval 113 QRS Duration 146 QT Interval 413 QTC Calculation (Bazett) 465 Calculated P Bertrand 97 Calculated R Bertrand -42 Calculated T Bertrand 100 Impression Sinus rhythm Atrial premature complex Borderline short [place] interval Left bundle branch block Abnormal ECG No Stemi Confirmed by JASON SAGASTUME MD ([id number]) on 10/16/2024 4:13:30 PM Recent Results (from the past 65170 hour(s)) ECHO Collection Time: 03/29/22 3:52 PM Impression CONCLUSIONS: - Exam indication: CAD - The left ventricle is normal in size. Left ventricular systolic function is normal. EF = 64 5% (2D biplane) - The right ventricle is normal in size. Right ventricular systolic function is normal. -No significant valvular abnormalities. - The patient has not had a prior CC echocardiographic exam for comparison. Final Instructions Given to Patient: Instructions located in the after visit summary. Patient given verbal and written preop instructions and voices comprehension and compliance. SIGNATURE: Maxine Singh APRN.CNS PATIENT NAME: Saeed Sarabia DATE: November 14, 2024 TIME: 4:02 PM PAGER/CONTACT #: documented in this encounter [facility] 11-13-2024 Note Patient: Saeed lanier Procedure Summary Date: 11/13/24 Room / Location: [facility] [place] Anesthesia Start: 1039 Anesthesia Stop: 1144 Procedure: DIAGNOSTIC COLONOSCOPY Diagnosis: Abdominal pain, unspecified site Scheduled Providers: Bradford Davis MD; ROB Duomnt; Alexis Arango MD Responsible Provider: Alexis Arango MD Anesthesia Type: MAC ASA Status: 4 Anesthesia Type: MAC Vitals Value Taken Time BP 120/52 11/13/24 1150 Temp 36.2 ???C (97.2 ???F) 11/13/24 1150 Pulse 72 11/13/24 1150 Resp 20 11/13/24 1150 SpO2 95 11/13/24 1208 Anesthesia Post Evaluation Patient location during evaluation: PACU Patient participation: complete - patient participated Level of consciousness: awake Pain score: 0 Pain management: adequate Airway patency: patent Cardiovascular status: stable Respiratory status: acceptable Hydration status: balanced Patient is hemodynamically stable and is able to be discharged from PACU per anesthesia protocol. No notable events documented. [facility] 11-13-2024 Note H&P reviewed. The ariane hollis was examined and there are no changes to the H&P. Here for evaluation of ongoing weight loss. Recent EGD was unremarkable. Discussed colonoscopy including risks of the procedure. We discussed that she was higher than average risk for perforation given her age and if that were to occur it could be life threatening. She expressed understanding of this and agreed to proceed. [facility] 11-13-2024 Note Patient: Saeed lanier Procedure Summary Date: 11/13/24 Room / Location: [facility] Anesthesia Start: 1039 Anesthesia Stop: Procedure: DIAGNOSTIC COLONOSCOPY Diagnosis: Abdominal pain, unspecified site Scheduled Providers: Bradford Davis MD; ROB Dumont; Alexis Arango MD Responsible Provider: Alexis Arango MD Anesthesia Type: MAC ASA Status: 4 Anesthesia Post Transport Note Transport to: [place] PACU O2 Route: room air Patient Monitor: direct observation Transport: uneventful Patient condition is: stable [facility] 11-13-2024 Note Patient: Saeed lanier Procedure Information Date/Time: 11/13/24 1130 Scheduled providers: Bradford Davis MD; ROB Dumont; Alexis Arango MD Procedure: DIAGNOSTIC COLONOSCOPY Location: [facility] Relevant Problems Cardio (+) Atrial fibrillation (CMS/HCC) (+) Coronary arteriosclerosis (+) Essential hypertension (+) Mitral valve regurgitation (+) Type 2 diabetes mellitus with diabetic peripheral angiopathy without gangrene (CMS/HCC) Endo (+) Type 2 diabetes mellitus with diabetic peripheral angiopathy without gangrene (CMS/HCC) (+) Type 2 diabetes mellitus without complication (CMS/HCC) GI (+) Acute gastric ulcer without hemorrhage or perforation Clinical information reviewed: Tobacco Allergies Meds Med Hx Surg Hx OB Status Physical Exam Airway Mallampati: II TM distance: >3 FB Neck ROM: limited Cardiovascular Rhythm: regular Dental (+) upper dentures Pulmonary Breath sounds clear to auscultation Abdominal Abdomen: soft Anesthesia Plan ASA 4 MAC (Rt foot drop . Walks eith walker.) intravenous induction Anesthetic plan and risks discussed with patient. Use of blood products discussed with who consented to blood products. Plan discussed with CAA. Additional Equipment Requests [facility] 11-07-2024 Telephone encounter Note [facility] office called to give update from office visit today, see CareEverywhere: Preoperative evaluation for colonoscopy and uterine D&C: She can proceed at low to intermediate cardiac risk. She can hold Eliquis 2 days prior to the procedures and resume Eliquis afterwards. Please advise [facility] 11-07-2024 Miscellaneous Notes [facility] office called to give update from office visit today, see CareEverywhere: Preoperative evaluation for colonoscopy and uterine D&C: She can proceed at low to intermediate cardiac risk. She can hold Eliquis 2 days prior to the procedures and resume Eliquis afterwards. Please advise documented in this encounter [facility] 11-07-2024 Note [place] [facility] Subjective Saeed Sarabia is a 84 y.o. year old female patient being seen for 9 mo follow up CAD, CHF, PAF, and hypertension. She needs clearance for colonoscopy scheduled 11/13/2024 at [facility] with Dr. Davis. Patient also states she needs clearance for D&C at [facility] for uterine polyp. Denies chest pain, SOB, palpitations, lightheadedness/syncope, and bleeding on Eliquis. Had EKG last month. Patient Active Problem List Diagnosis Coronary arteriosclerosis Atrial fibrillation (CMS/HCC) Diastolic heart failure (CMS/HCC) Essential hypertension Hyperlipidemia Mitral valve regurgitation Type 2 diabetes mellitus without complication (CMS/HCC) Constipation Foot drop, right foot Right leg weakness Spinal stenosis Acute abdominal pain Acute metabolic encephalopathy Acute cholecystitis Cholelithiasis Abnormal thyroid blood test Abnormal ultrasound of endometrium Acute gastric ulcer without hemorrhage or perforation Altered mental status Cellulitis of foot 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 Delirium due to another medical condition Diarrhea Encounter for subsequent annual wellness visit (AWV) in Medicare patient Endocervical polyp Endometrial polyp Hypernatremia Malnutrition of moderate degree (CMS/HCC) Non-recurrent acute suppurative otitis media of right ear without spontaneous rupture of tympanic membrane Other acute sinusitis Other thrombophilia (CMS/HCC) Peripheral vascular disease, unspecified (CMS/HCC) Thickened endometrium Type 2 diabetes mellitus with diabetic neuropathy, unspecified (CMS/HCC) Type 2 diabetes mellitus with diabetic peripheral angiopathy without gangrene (CMS/HCC) Vaginal yeast infection Vitamin B12 deficiency Weight loss Family History Problem Relation Name Age of Onset Heart attack Mother Coronary artery disease Mother Heart attack Father Coronary artery disease Father Multiple sclerosis Sister Social History Tobacco Use Smoking status: Never Smokeless tobacco: Never Vaping Use Vaping status: Never Used Substance Use Topics Alcohol use: Not Currently Drug use: Never HPI Saeed aSrabia is a 84 yo woman who is seen in follow [...] the assistance of a walker after her prior back surgery. She has no angina and no shortness of breath on her current level of exertion. She does not feel palpitations. She has no bleeding issues with Eliquis. No claudication. Her right leg is in a brace. She needs to undergo colonoscopy as well as uterine D&C surgeries. Review of Systems Musculoskeletal: Positive for muscle weakness. Objective Visit Vitals BP 152/76 (BP Location: Right arm, Patient Position: Sitting) Pulse 77 Ht 1.676 m (5' 6 ) Wt 69.9 kg (154 lb) SpO2 99% BMI 24.86 kg/m??? Smoking Status Never BSA 1.8 m??? Physical Exam Constitutional: Appearance: She is [...] person, place, and time. Psychiatric: Mood and (more content not included)... [facility] 11-05-2024 Telephone encounter Note Call place to patient who was identified by name and . Reviewed/Discussed DO Manpreet message in detail. Pt verbalized understanding and agreed with the plan. No questions or other concerns at this time. Rehan Rashid RN [facility] 11-05-[address] to patient who was identified by name and . Reviewed/Discussed DO Manpreet message in detail. Pt verbalized understanding and agreed with the plan. No questions or other concerns at this time. 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 Epic wont let me message him due to him being at [place] but we can see things in care everywhere. 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 Epic wont let me message him due to him being at [place] but we can see things in care everywhere. ThanksLuciana [facility] 11-04-2024 Note HNO ID: [id number] Author: LUCIANA GREEN DO Service: ? Author Type: Physician Type: Progress Notes Filed: 11/04/2024 16:11 Note Text: Saeed Sarabia is a 84 year old female who presents for surgical consult. Has endometrial polyp. SIS results (10/29/24): Saline infusion sonohysterogram demonstrated an intracavitary lesion. The details of these findings are described in the procedure section below. The uterus is axial and measures 71 mm x 32 mm x 41 mm. The thickened, irregular and avascular endometrium measures 9.7 mm. The myometrium is heterogenous. There is a large endometrial polyp extending down to the cervix. This polyp measures 34 mm x 20 mm x 19 mm. On examination, while performing the SIS, this large mass is extending down through the external cervical os and is thick and firm. EMB results (10/29/24): A. Endometrium, biopsy: - Superficial strips of inactive endometrium, see comment. REVIEW OF SYSTEMS Allergies and current medication updated:Yes HISTORY OB History No obstetric history on file. 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 No pertinent family history. Social History Tobacco Use Smoking status: Never Passive exposure: Never Smokeless tobacco: Never Substance Use Topics Alcohol use: Never Drug use: Never Current Outpatient Medications Medication Sig cyanocobalamin (VITAMIN B-12) 1,000 mcg tab Take 1,000 mcg by mouth once daily. Magnesium 250 mg tab Take 250 mg by mouth once daily. therapeutic multivitamin (THERA VITAMIN) tablet Take 1 tablet by mouth once daily. pantoprazole DR (PROTONIX) 40 mg tablet TAKE 1 TABLET BY MOUTH TWICE DAILY (IN THE MORNING and IN THE EVENING) BEFORE MEALS metFORMIN (GLUCOPHAGE) 500 mg tablet Take 1 tablet by mouth twice daily with meals. apixaban (ELIQUIS) 5 mg tab(s) Take 1 tablet by mouth twice daily. acetaminophen (TYLENOL) 325 mg tablet 2 tablets by ORAL/FEEDING TUBE route every 4 hours as needed for pain or fever (specify). bumetanide (BUMEX) 1 mg tablet Take 0.5-1 mg by mouth once daily as needed (edema). ezetimibe (ZETIA) 10 mg tablet Take 10 mg by mouth once daily. lisinopril (ZESTRIL, PRINIVIL) 5 mg tablet Take 20 mg by mouth once daily. metoprolol succinate ER (TOPROL XL) 100 mg Take 100 mg by mouth once daily. rosuvastatin (CRESTOR) 5 mg tablet Take 5 mg by mouth once daily. glipiZIDE (GLUCOTROL) 5 mg tablet Take 5 mg by mouth twice daily before meals. spironolactone (ALDACTONE) 25 mg tablet Take 12.5 mg by mouth once daily. No current facility-administered medications for this visit. Allergies As of Date: 11/04/2024 Allergen Noted Reaction MORPHINE 09/17/2024 GI Upset Fully Assessed 11/04/2024 EXAM: BP 160/82 Pulse 80 Ht 5' 6 (1.68m) Wt 155 lb 6.8 oz (70.5kg) SpO2 98% BMI 25.10 kg/(m2). GENERAL: Appears comfortable, in no apparent distress HEENT: Normocephalic, atraumatic, and mucus membranes moist NECK: Supple and full range of motion DERMATOLOGY: Normal, without lesions, non-icteric, and non-hirsute CHEST: Normal inspiratory effort NEURO: alert and oriented x3,exam grossly non-focal EXTREMITIES: normal SENSITIVE EXAM: Sensitive exam not performed. ASSESSMENT AND PLAN: Assessment AND Plan Endometrial polyp - Recommended hysteroscopic removal of polyp and endometrial sampling. - Risks, benefits, and alternatives discussed with the patient. Risks including, but not limited to: bleeding, infection, injury to nearby structures (highest risk to bowel, bladder), uterine perforation as well as surgical risks of DVT, PE, ME, . All questions and concerns were addressed. [...] weeks. Orders: SURGICAL REQUEST - ELECTIVE (05/2020) Luciana Green DO Medical Decision Making: Problems: Moderate: New problem with uncertain prognosis Risk: Moderate: Decision on minor surgery w/ risk factors Medical Decision Making Level: 4 - Moderate [facility] 11-04-2024 History of Present illness Narrative Saeed Sarabia is a 84 year old female who presents for surgical consult. Has endometrial polyp. SIS results (10/29/24): Saline infusion sonohysterogram demonstrated an intracavitary lesion. The details of these findings are described in the procedure section below. The uterus is axial and measures 71 mm x 32 mm x 41 mm. The thickened, irregular and avascular endometrium measures 9.7 mm. The myometrium is heterogenous. There is a large endometrial polyp extending down to the cervix. This polyp measures 34 mm x 20 mm x 19 mm. On examination, while performing the SIS, this large mass is extending down through the external cervical os and is thick and firm. EMB results (10/29/24): A. Endometrium, biopsy: - Superficial strips of inactive endometrium, see comment. REVIEW OF SYSTEMS Allergies and current medication updated:Yes HISTORY OB History No obstetric history on file. 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 No pertinent family history. Social History Tobacco Use Smoking status: Never Passive exposure: Never Smokeless tobacco: Never Substance Use Topics Alcohol use: Never Drug use: Never Current Outpatient Medications Medication Sig cyanocobalamin (VITAMIN B-12) 1,000 mcg tab Take 1,000 mcg by mouth once daily. Magnesium 250 mg tab Take 250 mg by mouth once daily. therapeutic multivitamin (THERA VITAMIN) tablet Take 1 tablet by mouth once daily. pantoprazole DR (PROTONIX) 40 mg tablet TAKE 1 TABLET BY MOUTH TWICE DAILY (IN THE MORNING and IN THE EVENING) BEFORE MEALS metFORMIN (GLUCOPHAGE) 500 mg tablet Take 1 tablet by mouth twice daily with meals. apixaban (ELIQUIS) 5 mg tab(s) Take 1 tablet by mouth twice daily. acetaminophen (TYLENOL) 325 mg tablet 2 tablets by ORAL/FEEDING TUBE route every 4 hours as needed for pain or fever (specify). bumetanide (BUMEX) 1 mg tablet Take 0.5-1 mg by mouth once daily as needed (edema). ezetimibe (ZETIA) 10 mg tablet Take 10 mg by mouth once daily. lisinopril (ZESTRIL, PRINIVIL) 5 mg tablet Take 20 mg by mouth once daily. metoprolol succinate ER (TOPROL XL) 100 mg Take 100 mg by mouth once daily. rosuvastatin (CRESTOR) 5 mg tablet Take 5 mg by mouth once daily. glipiZIDE (GLUCOTROL) 5 mg tablet Take 5 mg by mouth twice daily before meals. spironolactone (ALDACTONE) 25 mg tablet Take 12.5 mg by mouth once daily. No current facility-administered medications for this visit. Allergies As of Date: 11/04/2024 Allergen Noted Reaction MORPHINE 09/17/2024 GI Upset Fully Assessed 11/04/2024 EXAM: BP 160/82 Pulse 80 Ht 5' 6 (1.68m) Wt 155 lb 6.8 oz (70.5kg) SpO2 98% BMI 25.10 kg/(m^2). GENERAL: Appears comfortable, in no apparent distress HEENT: Normocephalic, atraumatic, and mucus membranes moist NECK: Supple and full range of motion DERMATOLOGY: Normal, without lesions, non-icteric, and non-hirsute CHEST: Normal inspiratory effort NEURO: alert and oriented x3,exam grossly non-focal EXTREMITIES: normal SENSITIVE EXAM: Sensitive exam not performed. ASSESSMENT AND PLAN: Assessment & Plan Endometrial polyp - Recommended hysteroscopic removal of polyp and endometrial sampling. - Risks, benefits, and alternatives discussed with the patient. Risks including, but not limited to: bleeding, infection, injury to nearby structures (highest risk to bowel, bladder), uterine perforation as well as surgical risks of DVT, PE, ME, . All questions and concerns were addressed. Pt is willing to accept a blood transfusion in the case of excessive blood loss. She is agreeable to Exam under anesthesia, operative hysteroscopy, dilation and curettage, polypectomy, possible blood transfusion and informed consent was obtained. - Will need cardiology clearance, courtney held. Will attempted to reach out to Dr. Roberson to make him aware. Pt has an appointment with him in the coming weeks. Orders: SURGICAL REQUEST - ELECTIVE (05/2020) Luciana Green DO Medical Decision Making: Problems: Moderate: New problem with uncertain prognosis Risk: Moderate: Decision on minor surgery w/ risk factors Medical Decision Making Level: 4 - Moderate documented in this encounter [facility] 10-30-2024 Telephone encounter Note Spoke with patient's Sammy (patient gave consent to speak with him yesterday). Reported endometrial biopsy with superficial strips of inactive endometrium. Recommend to follow up with Dr. Green as the biopsy did not have enough tissue and they need to get the polyp removed.Told patient's he needs to schedule an appointment with Dr. Green for his . Forwarded results of endometrial biopsy to Dr. Green. FINAL DIAGNOSIS A. Endometrium, biopsy: - Superficial strips of inactive endometrium, see comment. Diagnosis Comment Sections show limited superficial strips of inactive endometrium without intact underlying stroma. There is no evidence of malignancy in this specimen. An endometrial curetting is recommended if clinical indicated. Gabriela Centeno MD [facility] 10-30-2024 Miscellaneous Notes Spoke with patient's Sammy (patient gave consent to speak with him yesterday). Reported endometrial biopsy with superficial strips of inactive endometrium. Recommend to follow up with Dr. Green as the biopsy did not have enough tissue and they need to get the polyp removed.Told patient's he needs to schedule an appointment with Dr. Green for his . Forwarded results of endometrial biopsy to Dr. Green. FINAL DIAGNOSIS A. Endometrium, biopsy: - Superficial strips of inactive endometrium, see comment. Diagnosis Comment Sections show limited superficial strips of inactive endometrium without intact underlying stroma. There is no evidence of malignancy in this specimen. An endometrial curetting is recommended if clinical indicated. Gabriela Centeno MD documented in this encounter [facility] 10-30-2024 History of Present illness Narrative Images from the original note were not included. Subjective Patient ID: Saeed Sarabia is a 84 y.o. female who presents for Diabetes. HPI Review of Systems Objective Physical Exam Assessment/Plan Images from the original note were not included. Saeed Sarabia is a 84 y.o. female presents with chief complaint of Diabetes HPI: Here for recheck: Afib: no heart palpitations, takes b donna elilquis as well. No dyspnea CAD: no chest pain, takes statin, b donna and eliquis Heart failure: no acute dyspnea, mild swelling right leg Uterine mass: had pelvic US and biopsy yesterday-waiting those results Neurology: feels probable delerium as her neuro issues, will fu in 3 months SUBJECTIVE: MEDICATIONS: Current Outpatient Medications Medication Instructions bumetanide (BUMEX) 1 mg, Oral, Daily PRN cyanocobalamin (VITAMIN B-12) 1,000 mcg, Oral, Daily RT Eliquis 5 mg, 2 times daily ezetimibe (ZETIA) 10 mg, Nightly fluconazole (Diflucan) 150 MG tablet Take 1 dose, then repeat in 3 days glipiZIDE (GLUCOTROL) 5 mg, Oral, 2 times daily before meals lisinopril 20 mg, Daily RT MAGNESIUM PO 250 mg, Oral, Daily RT metFORMIN (GLUCOPHAGE) 1,000 mg, Oral, 2 times daily with meals metoprolol succinate XL (TOPROL-XL) 100 mg, Every morning Multiple Vitamins-Minerals (Oncovite) tablet 1 tablet, Daily RT pantoprazole (PROTONIX) 40 mg, Oral, 2 times daily before meals rosuvastatin (CRESTOR) 5 mg, Nightly spironolactone (ALDACTONE) 25 mg, Once ALLERGIES: Allergies Allergen Reactions Morphine GI intolerance and Nausea Only REVIEW OF SYMPTOMS: Review of Systems Constitutional: Positive for fatigue. Negative for appetite change, chills and fever. HENT: Negative for congestion, ear pain and sore throat. Eyes: Negative for pain, discharge, redness and visual disturbance. Respiratory: Negative for cough, shortness of breath and wheezing. Cardiovascular: Negative for chest pain, palpitations and leg swelling. Gastrointestinal: Negative for abdominal pain (intermittent), blood in stool, constipation, diarrhea, nausea and vomiting. Genitourinary: Positive for vaginal bleeding (s/p biopsy). Negative for difficulty urinating, dysuria and frequency. Musculoskeletal: Positive for arthralgias. Negative for back pain, joint swelling and myalgias. Skin: Negative for rash and wound. Neurological: Positive for weakness (RLE). Negative for dizziness, tremors, seizures, syncope and [...] not on file. OBJECTIVE: Visit Vitals BP 140/69 (BP Location: Left arm, Patient Position: Sitting, BP Cuff Size: Adult long) Pulse 62 Temp 98.5 F (Temporal) Resp 18 Wt 154 lb 3.2 oz SpO2 95% BMI 26.47 kg/m Smoking Status Never BSA 1.78 m Physical Exam Vitals and nursing note reviewed. Constitutional: General: She is not in acute distress. Appearance: Normal appearance. HENT: Head: Normocephalic and atraumatic. Right Ear: External ear normal. Left Ear: External ear normal. Nose: Nose normal. Mouth/Throat: Mouth: Mucous membranes are moist. Eyes: Extraocular Movements: Extraocular movements intact. Conjunctiva/sclera: Conjunctivae normal. Neck: Vascular: No carotid bruit. Cardiovascular: Rate and Rhythm: Normal rate and regular rhythm. Pulses: Normal pulses. Heart sounds: Normal heart sounds. No murmur heard. Pulmonary: Effort: Pulmonary effort is normal. Breath sounds: Normal breath sounds. No wheezing or rales. Abdominal: Comments: Not examined d/t s/p biopsy Musculoskeletal: Cervical back: Normal range of motion and neck supple. Right lower leg: Edema present. Comments: Weakness to RLE, walks with walker Lymphadenopathy: Cervical: No cervical adenopathy. Skin: General: Skin is warm and dry. Capillary Refill: Capillary refill takes 2 to 3 seconds. Findings: No rash. Neurological: General: No focal deficit present. Mental Status: She is alert and oriented to person, place, and time. Psychiatric: Mood and Affect: Mood normal. Behavior: Behavior normal. Thought Content: Thought content normal. Judgment: Judgment normal. ASSESSMENT AND PLAN: Follow up in about 1 month (around 11/30/2024) for Recheck. Problem List Items Addressed This Visit Chronic atrial fibrillation, unspecified (CMS/HCC) Continue eliquis therapy as b donna therapy No current symptoms, NSR today Continue w cardiology Benign essential HTN ([facility]/HCC) - Primary Please check blood pressure daily and record DASH diet Limit caffeine Take medication as directed Contact office if chest pain, pressure, dizziness, shortness of breath, swelling legs Recommend slow position changes Current meds: lisinopril, metoprolol, spironolactone Chronic diastolic (congestive) heart failure ([facility]) Continue with cardiology as well as diuretics, BONIFACIO and b donna Type 2 diabetes mellitus without complication ([facility]) Check blood sugars daily, notify if <70 [...] metformin, bonifacio, statin, A1c 6.1% on 08/20/2024 Other thrombophilia ([facility]) On eliquis Type 2 diabetes mellitus with diabetic neuropathy, unspecified ([facility]) Check blood sugars daily, notify if <70 [...] metformin Current A1c test: 6.1% on 08/20/2024 Thickened endometrium Had recent US with [facility] yesterday, I have reviewed notes and pelvic US Plan to get biopsy Type 2 diabetes mellitus with diabetic peripheral angiopathy without gangrene ([facility]) Good glucose control, cont meds Abnormal ultrasound of endometrium Continue with DIAGNOSTIC IMAGING MANAGER Will be having biopsy Delirium due to another medical condition Reviewed neurology notes Low MOCA score as well Alert in office, answers questions appropriately Endocervical polyp Noted on DIAGNOSTIC IMAGING MANAGER exam and pelvic US Will get biopsy Endometrial polyp Seen on DIAGNOSTIC IMAGING MANAGER exam and had US, will be having biopsy Vitamin B12 deficiency Started on supplement Unsure if contributing to her neuro status Associated Problem(s): Altered mental status Noted neuro notes Also had MRI brain Associated Problem(s): Other thrombophilia (CMS/HCC) On eliquis Associated Problem(s): Vitamin B12 deficiency Started on supplement Unsure if contributing to her neuro status Associated Problem(s): Type 2 diabetes mellitus without [...] metformin, bonifacio, statin, A1c 6.1% on 08/20/2024 Associated Problem(s): Endometrial polyp Seen on DIAGNOSTIC IMAGING MANAGER exam and had US, will be having biopsy Associated Problem(s): Endocervical polyp Noted on DIAGNOSTIC IMAGING MANAGER exam and pelvic US Will get biopsy Associated Problem(s): Abnormal ultrasound of endometrium Continue with DIAGNOSTIC IMAGING MANAGER Will be having biopsy Associated Problem(s): Thickened endometrium Had recent US with [facility] yesterday, I have reviewed notes and pelvic US Plan to get biopsy Associated Problem(s): Type 2 diabetes mellitus with diabetic peripheral angiopathy without gangrene (CMS/HCC) Good glucose control, cont meds Associated Problem(s): Chronic diastolic (congestive) heart failure (CMS/HCC) Continue with cardiology as well as diuretics, BONIFACIO and b donna Associated Problem(s): Chronic atrial fibrillation, unspecified (CMS/HCC) Continue eliquis therapy as b donna therapy No current symptoms, NSR today Continue w cardiology Associated Problem(s): Benign essential HTN (CMS/HCC) Please check blood pressure daily and record DASH diet Limit caffeine Take medication as directed Contact office if chest pain, pressure, dizziness, shortness of breath, swelling legs Recommend slow position changes Current meds: lisinopril, metoprolol, spironolactone Associated Problem(s): Type 2 diabetes mellitus with diabetic neuropathy, unspecified (CMS/HCC) Check blood sugars daily, notify if [...] metformin Current A1c test: 6.1% on 08/20/2024 Associated Problem(s): Acute metabolic encephalopathy Dx in hospital Associated Problem(s): Delirium due to another medical condition Reviewed neurology notes Low MOCA score as well Alert in office, answers questions appropriately documented in this encounter [facility] 10-30-2024 Instructions Galindo Miller NP - 10/30/2024 10:00 AM EST Keep fu appts Ask cardiology for refill nitroglycerin Await biopsy endometrial for next steps documented in this encounter [facility] 10-29-2024 Note HNO ID: [id number] Author: BRENDON DORSEY MD Service: ? Author Type: Physician Type: Progress Notes Filed: 10/29/2024 15:53 Note Text: [facility] New Patient Evaluation Date: October 29, 2024 Patient Name: Saeed Sarabia [facility] was asked by to evaluate Seaed Sarabia. Our recommendations of care will be communicated by shared medical record. Reason for Evaluation/Chief complaint: memory concerns Accompanied by: SUBJECTIVE: HPI: Saeed Sarabia is a 84 year old Right handed female who presents to the [facility] for an initial evaluation. Patient has been seen and referred by . Patient has a pertinent PMHx significant for CAD, Atrial Fibrillation, . Today's visit: Visit was scheduled by her daughter. She has been admitted for for confusions. notices that she has been more confused in the last couple of months. Family will ask her questions and she will not be able to respond. She will go blank. has been doing her medication management for a few years. She stopped driving 2.5 years ago because of the foot drop. 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 HS education. 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 She cleans her house and cooks. She is independent in self care. Spoke with daughter on the phone after visit: Lorie notes that she had been having memory problems which were partly attributed to UTI. But she worries that it is more than just UTI. She improved after antibiotics but then confusion came back 2 weeks later. When in [place] she was hallucinating. She got IV antibiotics for UTI. What triggered the visit to ER was two episodes of non-responsiveness noted by daughter while she was on the phone with her. She asked her some questions on the phone and Saeed could not respond. But when she was asked her mom are you there? And she responded yes. She was awake and alert but confused. Prior to these episodes, Over the last year, she would have trouble recalling certain information. Short-term Memory: Repeats questions/statements: NO Misplacing items around the house: NO Difficulty remembering details of recent conversations within a few hours: Yes Difficulty remembering names of familiar people (not family or friends): NO Missed some appointments or major events due to memory changes: NO Language: Word-finding difficulty: NO Fluency: NO Difficulty understanding conversations: NO Difficulty with reading or writing: NO Difficulty with reading comprehension: No Mood: normal Neurobehavioral symptoms: normal Sleep: normal Parkinsonism: normal REVIEW OF SYSTEMS: Weight change/Appetite: no concerns Hearing: no change Vision: no change Constipation, Diarrhea: no Incontinence: no Chest pain: No Edema: No Dyspnea: No Falls/injuries/accidents: No NEURO: SEE HPI OUTPATIENT MEDICATIONS Current Outpatient Medications on File Prior to Visit Medication Sig therapeutic multivitamin (THERA VITAMIN) tablet Take 1 tablet by mouth once daily. pantoprazole DR (PROTONIX) 40 mg tablet TAKE 1 TABLET BY MOUTH TWICE DAILY (IN THE MORNING and IN THE EVENING) BEFORE MEALS metFORMIN (GLUCOPHAGE) 500 mg tablet Take 1 tablet by mouth twice daily with meals. apixaban (ELIQUIS) 5 mg tab(s) Take 1 tablet by mouth twice daily. acetaminophen (TYLENOL) 325 mg tablet 2 tablets by ORAL/FEEDING TUBE route every 4 hours as needed for pain or fever (specify). bumetanide (BUMEX) 1 mg tablet Take 0.5-1 mg by mouth once daily as needed (edema). ezetimibe (ZETIA) 10 mg tablet Take 10 mg by mouth once daily. lisinopril (ZESTRIL, PRINIVIL) 5 mg tablet Take 20 mg by mouth once daily. metoprolol succinate ER (TOPROL XL) 100 mg Take 100 mg by mouth once daily. rosuvastatin (CRESTOR) 5 mg tablet Take 5 mg by mouth once daily. glipiZIDE (GLUCOTROL) 5 mg tablet Take 5 mg by mouth twice daily before meals. spironolactone (ALDACTONE) 25 mg tablet Take 12.5 mg by mouth once daily. No current facility-administered medications on file prior to visit. MEDICAL HISTORY PAST MEDICAL HISTORY Diagnosis Date A-fib (HCC) Heart attack (HCC) SURGICAL HISTORY PAST SURGICAL HISTORY Procedure Laterality Date BACK SURGERY HX HEART SURGERY HX SOCIAL HISTORY Social History Tobacco Use Smoking status: Never Passive exposure: Never Smokeless tobacco: Never Substance Use Topics Alcohol use: Never Drug use: Never -No tobacco. No significant alcohol abuse. No history of substance abuse. -Marital status: -Advanced directives/POA: FAMILY HISTORY No family history on file. N (more content not included)... [facility] 10-29-2024 History of Present illness Narrative Images from the original note were not included. [facility] New Patient Evaluation Date: October 29, 2024 Patient Name: Saeed Sarabia [facility] was asked by to evaluate Saeed Sarabia. Our recommendations of care will be communicated by shared medical record. Reason for Evaluation/Chief complaint: memory concerns Accompanied by: SUBJECTIVE: HPI: Saeed Sarabia is a 84 year old Right handed female who presents to the [facility] for an initial evaluation. Patient has been seen and referred by . Patient has a pertinent PMHx significant for CAD, Atrial Fibrillation, . Today's visit: Visit was scheduled by her daughter. She has been admitted for for confusions. notices that she has been more confused in the last couple of months. Family will ask her questions and she will not be able to respond. She will go blank. has been doing her medication management for a few years. She stopped driving 2.5 years ago because of the foot drop. 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 HS education. 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 She cleans her house and cooks. She is independent in self care. Spoke with daughter on the phone after visit: Lorie notes that she had been having memory problems which were partly attributed to UTI. But she worries that it is more than just UTI. She improved after antibiotics but then confusion came back 2 weeks later. When in [place] she was hallucinating. She got IV antibiotics for UTI. What triggered the visit to ER was two episodes of non-responsiveness noted by daughter while she was on the phone with her. She asked her some questions on the phone and Saeed could not respond. But when she was asked her mom are you there? And she responded yes. She was awake and alert but confused. Prior to these episodes, Over the last year, she would have trouble recalling certain information. Short-term Memory: Repeats questions/statements: NO Misplacing items around the house: NO Difficulty remembering details of recent conversations within a few hours: Yes Difficulty remembering names of familiar people (not family or friends): NO Missed some appointments or major events due to memory changes: NO Language: Word-finding difficulty: NO Fluency: NO Difficulty understanding conversations: NO Difficulty with reading or writing: NO Difficulty with reading comprehension: No Mood: normal Neurobehavioral symptoms: normal Sleep: normal Parkinsonism: normal REVIEW OF SYSTEMS: Weight change/Appetite: no concerns Hearing: no change Vision: no change Constipation, Diarrhea: no Incontinence: no Chest pain: No Edema: No Dyspnea: No Falls/injuries/accidents: No NEURO: SEE HPI OUTPATIENT MEDICATIONS Current Outpatient Medications on File Prior to Visit Medication Sig therapeutic multivitamin (THERA VITAMIN) tablet Take 1 tablet by mouth once daily. pantoprazole DR (PROTONIX) 40 mg tablet TAKE 1 TABLET BY MOUTH TWICE DAILY (IN THE MORNING and IN THE EVENING) BEFORE MEALS metFORMIN (GLUCOPHAGE) 500 mg tablet Take 1 tablet by mouth twice daily with meals. apixaban (ELIQUIS) 5 mg tab(s) Take 1 tablet by mouth twice daily. acetaminophen (TYLENOL) 325 mg tablet 2 tablets by ORAL/FEEDING TUBE route every 4 hours as needed for pain or fever (specify). bumetanide (BUMEX) 1 mg tablet Take 0.5-1 mg by mouth once daily as needed (edema). ezetimibe (ZETIA) 10 mg tablet Take 10 mg by mouth once daily. lisinopril (ZESTRIL, PRINIVIL) 5 mg tablet Take 20 mg by mouth once daily. metoprolol succinate ER (TOPROL XL) 100 mg Take 100 mg by mouth once daily. rosuvastatin (CRESTOR) 5 mg tablet Take 5 mg by mouth once daily. glipiZIDE (GLUCOTROL) 5 mg tablet Take 5 mg by mouth twice daily before meals. spironolactone (ALDACTONE) 25 mg tablet Take 12.5 mg by mouth once daily. No current facility-administered medications on file prior to visit. MEDICAL HISTORY PAST MEDICAL HISTORY Diagnosis Date A-fib (HCC) Heart attack (HCC) SURGICAL HISTORY PAST SURGICAL HISTORY Procedure Laterality Date BACK SURGERY HX HEART SURGERY HX SOCIAL HISTORY Social History Tobacco Use Smoking status: Never Passive exposure: Never Smokeless tobacco: Never Substance Use Topics Alcohol use: Never Drug use: Never -No tobacco. No significant alcohol abuse. No history of substance abuse. -Marital status: -Advanced directives/POA: FAMILY HISTORY No family history on file. No known family history of dementia. ALLERGIES ALLERGIES Allergen Reactions Morphine GI Upset OUTSIDE RECORDS: No outside records provided to review. INTERNAL RECORDS: The patient's electronic medical record was reviewed. The relevant details are summarized in this note. Functional Evaluation: B-ADLs: (I=independent,A=assistance,D=de pendent) ?Bathing: I , Dressing: I , Toileting: I , Transferring: I , Continence: I , Feeding: I I-ADLs: Transportation: D, Medications: D, Handle Finances: D OBJECTIVE: PHYSICAL EXAM: Vitals: There were no vitals taken for this visit. General appearance: Sitting upright. Appears stated age. No acute distress. Non-toxic appearing. No hypomimia. Neuro: Mental Status: Alert, oriented to person, place, and time. Follows commands. Answering questions appropriately. No dysarthria or hypophonia. Mateo Cognitive Assessment (MoCA) Version 8.1 Total Score: 830 Visuospatial/Executive: 1/5 Namin/3 Attention: 0/6 Language: 0/3 Abstraction: 1/2 Delayed Recall: 0/5 Orientation: 3/6 Education less than or equal to 12th grade: +1 MIS Scoring/ Number of words recalled spontaneously: 0 x3: 0 Number of words recalled with a category cue: 1 x2: 2 Number of words recalled with a category cue: 3 x1: 3 Total MIS: 02/20 MoCA Past Scores 10/29/2024 MoCA MOCA TOTAL SCORE 8 out of 30 Visuospatial/ Executive 1 Naming 2 Attention 0 Language 0 Abstraction 1 Delayed Recall 0 Orientation 3 Education Level 1 Cranial Nerves: EOMI CN VII: Face symmetric, no ptosis or facial droop CN VIII: Auditory acuity intact CN IX/CN X: Normal palate elevation CN XI: Normal shoulder shrug CN XII: Normal tongue strength and range of motion; no deviation Motor Exam: Strength 5/5 in UE's bilaterally. LE's 5/5 throughout as well. Sensory: Intact to light touch in all extremities. Pinprick, vibration, and proprioception not assessed. Coordination: FNF with no ataxia or dysmetria. IMAGING REVIEW: 10/17/2024: RESULT: Acute Change: No diffusion restriction to suggest acute infarct. Hemorrhage: Foci of probable chronic microhemorrhages in the subcortical left parietal lobe. Chronic hemosiderin associated with old RIGHT centrum semiovale/jernigan radiata lacunar infarcts. Mass Lesion / Mass Effect: No intracranial mass. No extra-axial collection. No midline shift. Chronic Change: Scattered patchy and confluent T2/FLAIR hyperintensities in the supratentorial white matter. Old lacunar infarcts in the RIGHT centrum semiovale and RIGHT jernigan radiata. Parenchyma: Mild parenchymal volume loss for age. Ventricles: Ventricular enlargement concordant with the degree of parenchymal volume loss. LABS TSH Date Value Ref Range Status 10/17/2024 0.103 (L) 0.270 - 4.200 mIU/L Final Vitamin B12 Date Value Ref Range Status 10/19/2024 229 (L) 232 - 1,245 pg/mL Final Folate Date Value Ref Range Status 10/19/2024 14.7 >4.7 ng/mL Final Free T4 normal on 10/19/2024 EEG 10/19 Classifications: Abnormal I (10-20 Scalp Electrodes, Standard Electrodes, Anterior Temporal Electrodes, Awake) Interictal: Background Slow, Intermittent Slow, Generalized, Impression: This bedside EEG was recorded from 0430 to 1421 on 10/18/2024 and is suggestive of a mild diffuse encephalopathy. No epileptiform discharges or EEG seizures were seen during this recording. Plan ASSESSMENT: Ms. Sarabia is a 84 year old FEMALE with history of DM, HTN who presents for memory loss assessment. She was recently admitted to [facility] and then at [facility] for Altered mental status. During first visit she was found to have UTI, mentation improved after antibiotics. During second admission, no infectious cause was identified, she was given abx for one dose and d/quan because cellulitis was thought to be less likely. Cognitive Decline. Delirium superimposed on vascular cognitive decline Recent confusion is likely related to episodes of delirium in the setting of UTI and then readmission for AMS and abdominal pain few weeks later. There is likely some degree of cognitive decline at baseline. 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 EEG from 10/18 supports delirium diagnosis. Endometrial polyp s/p biopsy today. History of abdominal pain s/p EGD PLAN: - Vitamin B 12 supplementation to be continued. - Allow more time for resolution of delirium. - No cognitive enhancers at this time. - Follow up in 3 months in person with daughter. Spoke with Lorie and discussed the plan after the visit. I spent a total of 45 minutes on the date of the service which included preparing to see the patient, [id number] patient care, completing clinical documentation, obtaining and/or reviewing separately obtained history, performing a medically appropriate examination, counseling and educating the patient/family/caregiver, ordering medications, tests, or procedures, communicating with other HCPs (not separately reported), and independently interpreting results (not separately reported). Voice recognition software was used to compose this office note. Please excuse any unintended typographical errors. Brendon Dorsey MD Geriatric Medicine [place] for [facility] 10/29/2024 1:25 PM CC: Referring Physician: No referring provider defined for this encounter. PCP: Galindo Miller, LAUNDRY AIDE ([facility]) [address] [place] [address] Patient Entered Data: Patient-Reported No data to display Activities of Daily Living (ADL) No data to display PROMIS-10 No data to display PHQ-9 No data to display (0-4) minimal depression (5-9) mild depression (10-14) moderate depression (15-19) moderately severe depression (20-27) severe depression Full History of PHQ-9 Scores No data to display Sleep No data to display No data to display Caregiver-Reported No data to display Dementia Severity Rating Scale (DSRS) No data to display documented in this encounter [facility] 10-29-2024 Instructions Gabriela Centeno MD - 10/29/2024 10:34 AM EST SALINE INFUSION SONOGRAPHY (SIS) is an office procedure used to evaluate the intrauterine cavity or inside lining of the uterus. This is achieved by intrauterine infusion of a saline solution during transvaginal ultrasound (an ultrasound using a vaginal probe). A small, flexible catheter is passed through the cervix (the opening of the uterus) into the uterus so the sterile water can distend the uterine doty and allow visualization of the uterine cavity. AFTER THE PROCEDURE: A small amount of bleeding, cramping, or watery discharge is expected. You may use pads. Tylenol, Advil, or Motrin may be used for abdominal cramping or discomfort you may experience. Refrain from douching or intercourse for 7 days. Showers or tub baths are allowed. However, refrain from hot tubs and swimming for 7 days. NOTIFY YOUR PHYSICIAN'S OFFICE IF YOU HAVE A TEMPERATURE OF 100.4 DEGREES OR HIGHER, OR IF YOU EXPERIENCE SEVERE ABDOMINAL PAIN, OR HEAVY BLEEDING. YOUR PHYSICIAN WILL NOTIFY YOU OF YOUR TEST RESULTS Post-Endometrial Biopsy Instructions You just had a procedure called an Endometrial Biopsy. This means a specimen of tissue was removed from the lining of the uterus for the pathologist to study. The reason for this test was explained to you by your Doctor. IMPORTANT THINGS TO REMEMBER: 1. You may experience vaginal bleeding or spotting. Please the office if: Vaginal discharge increases in quantity or begins to have an unpleasant odor. You experience discomfort that Advil does not relieve quickly. Unusually heavy vaginal bleeding or swelling develops. You develop signs of infection (fever over 100.4 F, chills, aching, or tiredness) 2. You should avoid sexual intercourse, use of tampons and douching for at least one week. . If you have any questions, call the office at any time. documented in this encounter [facility] 10-29-2024 Note HNO ID: [id number] Author: GABRIELA CENTENO MD Service: ? Author Type: Physician Type: Progress Notes Filed: 10/29/2024 20:34 Note Text: Saeed Sarabia is a 84 year old No obstetric history on file. here for SIS. Referred by: Luciana Green [id number] [id number] Chief Complaint: Thickened endometrium Endometrial Biopsy: No Ultrasound: No Hormonal therapy: No. LMP: No LMP recorded. Patient is postmenopausal. Cycles: n/a Contraception: N/A HCG: n/a UNIVERSAL PROTOCOL / SAFETY CHECKLIST Procedure to be Performed: Saline infusion sonohysterogram and endometrial biopsy Sign In: A Moment of CARE was completed. Personnel directly involved with the procedure wore the appropriate PPE (Personal Protective Equipment). No special equipment needed. Patient/Surrogate Stated/Verified: PATIENT VERIFIED(optional for EMERGENT procedures): Patient name, Date of , Relevant allergies, and The intended procedure Time Out Communication: Intended patient and procedure match the source documents. Consent documented and matches the intended procedure. Relevant labs, photos, and/or imaging studies have been reviewed. No correct side/site applicable for marking and visibility. No medications required for procedure. No fire risk assessment and interventions applicable. No implant(s) inserted. Sign Out: SIGN OUT (optional for EMERGENT procedures): All specimen containers correctly labeled. All instruments, equipment, possible retained foreign bodies accounted for. Post-procedure follow-up management communicated and Plan of Care Visit completed when applicable. Gabriela Centeno MD PROCEDURE: Saline Infusion Sonohysterogram and Endometrial Biopsy EXTERNAL GENITALIA: Normal in appearance without lesions VAGINA: Normal in appearance without lesions Speculum placed into the vagina with excellent visualization of the cervix. Cervix cleaned with betadine. There is a large endocervical polyp/mass that is quite thick. SIS catheter inserted into the uterus without difficulty. The cervix external os was approximately 1 cm dilated. Speculum removed and 10 mL sterile saline injected into the uterine cavity under ultrasound guidance. See ViewPoint for procedure results. Endometrial Biopsy was performed as follows: A speculum placed in vagina with good visualization of cervix; cervix swabbed x3 with Betadine solution. Endometrial sampling achieved with Pipelle sampling unit. Tissue collected, labelled and sent to Pathology. Instruments removed. Procedure Summary: Patient tolerated procedure well. Patient to schedule follow-up virtual visit for results See ViewPoint for procedure results. Gabriela Centeno MD Ultrasound [facility] 10-29-2024 History of Present illness Narrative Saeed Sarabia is a 84 year old No obstetric history on file. here for SIS. Referred by: Luciana Green [id number] [place] [id number] Chief Complaint: Thickened endometrium Endometrial Biopsy: No Ultrasound: No Hormonal therapy: No. LMP: No LMP recorded. Patient is postmenopausal. Cycles: n/a Contraception: N/A HCG: n/a UNIVERSAL PROTOCOL / SAFETY CHECKLIST Procedure to be Performed: Saline infusion sonohysterogram and endometrial biopsy Sign In: A Moment of CARE was completed. Personnel directly involved with the procedure wore the appropriate PPE (Personal Protective Equipment). No special equipment needed. Patient/Surrogate Stated/Verified: PATIENT VERIFIED(optional for EMERGENT procedures): Patient name, Date of , Relevant allergies, and The intended procedure Time Out Communication: Intended patient and procedure match the source documents. Consent documented and matches the intended procedure. Relevant labs, photos, and/or imaging studies have been reviewed. No correct side/site applicable for marking and visibility. No medications required for procedure. No fire risk assessment and interventions applicable. No implant(s) inserted. Sign Out: SIGN OUT (optional for EMERGENT procedures): All specimen containers correctly labeled. All instruments, equipment, possible retained foreign bodies accounted for. Post-procedure follow-up management communicated and Plan of Care Visit completed when applicable. Gabriela Centeno MD PROCEDURE: Saline Infusion Sonohysterogram and Endometrial Biopsy EXTERNAL GENITALIA: Normal in appearance without lesions VAGINA: Normal in appearance without lesions Speculum placed into the vagina with excellent visualization of the cervix. Cervix cleaned with betadine. There is a large endocervical polyp/mass that is quite thick. SIS catheter inserted into the uterus without difficulty. The cervix external os was approximately 1 cm dilated. Speculum removed and 10 mL sterile saline injected into the uterine cavity under ultrasound guidance. See ViewPoint for procedure results. Endometrial Biopsy was performed as follows: A speculum placed in vagina with good visualization of cervix; cervix swabbed x3 with Betadine solution. Endometrial sampling achieved with Pipelle sampling unit. Tissue collected, labelled and sent to Pathology. Instruments removed. Procedure Summary: Patient tolerated procedure well. Patient to schedule follow-up virtual visit for results See ViewPoint for procedure results. Gabriela Centeno MD Ultrasound documented in this encounter [facility] 10-24-2024 Note HNO ID: [id number] Author: LUCIANA GREEN, DO Service: ? Author Type: Physician Type: Progress Notes Filed: 10/24/2024 15:36 Note Text: Saeed Sarabia is a 84 year old female who presents for thickened endometrial stripe on CT scan in ED. No bleeding since menopause at age 52. , vaginal deliveries. No hx of fibroids, polyps, endometriosis. No hormonal therapy. All normal pap smears. REVIEW OF SYSTEMS Abdomen: No bloating, early satiety, indigestion, or increased flatulence. No abdominal pain, nausea, vomiting, diarrhea, or constipation. Bladder: No dysuria, gross hematuria, urinary frequency, urinary urgency, or incontinence. Expanded ROS: N/A Allergies and current medication updated:Yes History HISTORY OB History No obstetric history on file. 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 No pertinent family history. Social History Tobacco Use Smoking status: Never Passive exposure: Never Smokeless tobacco: Never Substance Use Topics Alcohol use: Never Drug use: Never Current Outpatient Medications Medication Sig therapeutic multivitamin (THERA VITAMIN) tablet Take 1 tablet by mouth once daily. pantoprazole DR (PROTONIX) 40 mg tablet TAKE 1 TABLET BY MOUTH TWICE DAILY (IN THE MORNING and IN THE EVENING) BEFORE MEALS metFORMIN (GLUCOPHAGE) 500 mg tablet Take 1 tablet by mouth twice daily with meals. ezetimibe (ZETIA) 10 mg tablet Take 10 mg by mouth once daily. lisinopril (ZESTRIL, PRINIVIL) 5 mg tablet Take 20 mg by mouth once daily. metoprolol succinate ER (TOPROL XL) 100 mg Take 100 mg by mouth once daily. rosuvastatin (CRESTOR) 5 mg tablet Take 5 mg by mouth once daily. glipiZIDE (GLUCOTROL) 5 mg tablet Take 5 mg by mouth twice daily before meals. spironolactone (ALDACTONE) 25 mg tablet Take 12.5 mg by mouth once daily. apixaban (ELIQUIS) 5 mg tab(s) Take 1 tablet by mouth twice daily. acetaminophen (TYLENOL) 325 mg tablet 2 tablets by ORAL/FEEDING TUBE route every 4 hours as needed for pain or fever (specify). dextrose (TRUEPLUS) 15 gram/32 mL oral gel Take 32 mL by mouth as needed. (Patient not taking: Reported on 10/16/2024) bumetanide (BUMEX) 1 mg tablet Take 0.5-1 mg by mouth once daily as needed (edema). (Patient not taking: Reported on 10/16/2024) gabapentin (NEURONTIN) 100 mg capsule Take 100 mg by mouth three times daily. (Patient not taking: Reported on 10/16/2024) No current facility-administered medications for this visit. Allergies As of Date: 10/24/2024 Allergen Noted Reaction MORPHINE 09/17/2024 GI Upset Fully Assessed 10/24/2024 EXAM: BP 120/70 Pulse 65 Ht 5' 5 (1.65m) Wt 154 lb 15.7 oz (70.3kg) SpO2 98% BMI 25.79 kg/(m2). GENERAL: Appears comfortable, in no apparent distress HEENT: Normocephalic, atraumatic NECK: Supple and full range of motion DERMATOLOGY: Normal, without lesions, non-icteric, and non-hirsute, bruising CHEST: Normal inspiratory effort ABDOMEN: soft, non-tender, and no masses PELVIC: external genitalia normal, atrophic skin changes on vulva, large irregular vascular polyp noted through cervical os protruding about 3 cm in length (at least 1 cm diameter) from os. Cervical os about 1 cm dilated around polyp. No bleeding. BIMANUAL: uterus normal size, shape and consistency, no adnexal masses, and non-tender, polyp palpated through mildly dilated os NEURO: alert and oriented x3,exam grossly non-focal EXTREMITIES: normal SENSITIVE EXAM: The sensitive examination was discussed with the Patient or Patient's Authorized Inspector Machine Cut Glass. As applicable, any other physician, advance practice provider, medical student, or other health professional student that will be observing or involved in the sensitive examination for educational or training purposes was discussed with the Patient or Authorized Inspector Machine [employer] Glass. The Patient or Authorized Inspector Machine Cut Glass has agreed to proceed with the sensitive examination. (Sensitive examination includes inspection and/or palpation of the breasts, pelvis, prostate and anorectal regions). ASSESSMENT AND PLAN: Assessment AND Plan Thickened endometrium - Likely secondary to polyp seen protruding through cervix - Recommend US/SIS to evaluate and discussed need to r/o endometrial cancer d/t thickened endometrial stripe. - Recommend EMB if possible around polyp - Polyp will need to be surgically removed with hysteroscopy so could also consider sampling in OR, however if EMB can be done and shows malignancy, would refer to onc instead of hysteroscopy as eliquis would need to be held prior. Discussed this (more content not included)... [facility] 10-24-2024 History of Present illness Narrative Saeed Sarabia is a 84 year old female who presents for thickened endometrial stripe on CT scan in ED. No bleeding since menopause at age 52. , vaginal deliveries. No hx of fibroids, polyps, endometriosis. No hormonal therapy. All normal pap smears. REVIEW OF SYSTEMS Abdomen: No bloating, early satiety, indigestion, or increased flatulence. No abdominal pain, nausea, vomiting, diarrhea, or constipation. Bladder: No dysuria, gross hematuria, urinary frequency, urinary urgency, or incontinence. Expanded ROS: N/A Allergies and current medication updated:Yes History HISTORY OB History No obstetric history on file. 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 No pertinent family history. Social History Tobacco Use Smoking status: Never Passive exposure: Never Smokeless tobacco: Never Substance Use Topics Alcohol use: Never Drug use: Never Current Outpatient Medications Medication Sig therapeutic multivitamin (THERA VITAMIN) tablet Take 1 tablet by mouth once daily. pantoprazole DR (PROTONIX) 40 mg tablet TAKE 1 TABLET BY MOUTH TWICE DAILY (IN THE MORNING and IN THE EVENING) BEFORE MEALS metFORMIN (GLUCOPHAGE) 500 mg tablet Take 1 tablet by mouth twice daily with meals. ezetimibe (ZETIA) 10 mg tablet Take 10 mg by mouth once daily. lisinopril (ZESTRIL, PRINIVIL) 5 mg tablet Take 20 mg by mouth once daily. metoprolol succinate ER (TOPROL XL) 100 mg Take 100 mg by mouth once daily. rosuvastatin (CRESTOR) 5 mg tablet Take 5 mg by mouth once daily. glipiZIDE (GLUCOTROL) 5 mg tablet Take 5 mg by mouth twice daily before meals. spironolactone (ALDACTONE) 25 mg tablet Take 12.5 mg by mouth once daily. apixaban (ELIQUIS) 5 mg tab(s) Take 1 tablet by mouth twice daily. acetaminophen (TYLENOL) 325 mg tablet 2 tablets by ORAL/FEEDING TUBE route every 4 hours as needed for pain or fever (specify). dextrose (TRUEPLUS) 15 gram/32 mL oral gel Take 32 mL by mouth as needed. (Patient not taking: Reported on 10/16/2024) bumetanide (BUMEX) 1 mg tablet Take 0.5-1 mg by mouth once daily as needed (edema). (Patient not taking: Reported on 10/16/2024) gabapentin (NEURONTIN) 100 mg capsule Take 100 mg by mouth three times daily. (Patient not taking: Reported on 10/16/2024) No current facility-administered medications for this visit. Allergies As of Date: 10/24/2024 Allergen Noted Reaction MORPHINE 09/17/2024 GI Upset Fully Assessed 10/24/2024 EXAM: BP 120/70 Pulse 65 Ht 5' 5 (1.65m) Wt 154 lb 15.7 oz (70.3kg) SpO2 98% BMI 25.79 kg/(m^2). GENERAL: Appears comfortable, in no apparent distress HEENT: Normocephalic, atraumatic NECK: Supple and full range of motion DERMATOLOGY: Normal, without lesions, non-icteric, and non-hirsute, bruising CHEST: Normal inspiratory effort ABDOMEN: soft, non-tender, and no masses PELVIC: external genitalia normal, atrophic skin changes on vulva, large irregular vascular polyp noted through cervical os protruding about 3 cm in length (at least 1 cm diameter) from os. Cervical os about 1 cm dilated around polyp. No bleeding. BIMANUAL: uterus normal size, shape and consistency, no adnexal masses, and non-tender, polyp palpated through mildly dilated os NEURO: alert and oriented x3,exam grossly non-focal EXTREMITIES: normal SENSITIVE EXAM: The sensitive examination was discussed with the Patient or Patient's Authorized Inspector Machine Cut Glass. As applicable, any other physician, advance practice provider, medical student, or other health professional student that will be observing or involved in the sensitive examination for educational or training purposes was discussed with the Patient or Authorized Inspector Machine Cut Glass. The Patient or Authorized Inspector Machine Cut Glass has agreed to proceed with the sensitive examination. (Sensitive examination includes inspection and/or palpation of the breasts, pelvis, prostate and anorectal regions). ASSESSMENT AND PLAN: Assessment & Plan Thickened endometrium - Likely secondary to polyp seen protruding through cervix - Recommend US/SIS to evaluate and discussed need to r/o endometrial cancer d/t thickened endometrial stripe. - Recommend EMB if possible around polyp - Polyp will need to be surgically removed with hysteroscopy so could also consider sampling in OR, however if EMB can be done and shows malignancy, would refer to onc instead of hysteroscopy as eliquis would need to be held prior. Discussed this with patient and . - F/u and next steps pending US/EMB. Orders: SONOHYSTEROGRAPHY (SIS) US WHI; Future ENDOMETRIAL BIOPSY Luciana Green DO I spent a total of 30 minutes on the date of the service which included preparing to see the patient, [id number] patient care, completing clinical documentation, obtaining and/or reviewing separately obtained history, and counseling and educating the patient/family/caregiver. Powder Operator offered: Patient declines. documented in this encounter [facility] 10-24-2024 Note HNO ID: [id number] Author: CARA YOUNG MA Service: ? Author Type: Scrubber Operator Type: Progress Notes Filed: 10/24/2024 15:36 Note Text: Powder Operator offered: Patient declines. [facility] 10-21-2024 Note HNO ID: [id number] Author: ROLANDA CHAPARRO APRN.LAUNDRY AIDE Service: General Internal Medicine Author Type: Nurse Practitioner Type: Progress Notes Filed: 10/30/2024 07:40 Note Text: Documentation Query Please clarify the Type of encephalopathy Dementia with Encephalopathy, please specify type metabolic This document will become part of the patient's medical record. [facility] 10-21-2024 Note HNO ID: [id number] Author: KIANNA CHAVEZ APRN.CNP Service: Gastroenterology Author Type: Nurse Practitioner Type: Plan of Care Filed: 10/21/2024 14:32 Note Text: DEPARTMENT OF GASTROENTEROLOGY AND HEPATOLOGY [facility] INPATIENT VISIT DATE AND TIME 10/21/24 2:27 PM PLAN OF CARE PATIENT NAME: Saeed Sarabia Reason for Admission / Consultation: Opinion/Advice regarding intermittent confusion, abdominal pain EGD Impression: - Normal duodenal bulb and second portion of the duodenum. Biopsies were taken with a cold forceps to rule out Whipple's Disease. - Erythematous mucosa in the antrum. Biopsied. - Z-line, 38 cm from the incisors. - Normal esophagus. Recommendation: - [facility] to [facility] for [facility]. - Resume previous diet. - Continue present medications. - The patient is not currently taking anticoagulant or antiplatelet agents. GI will sign off at this time. Thank you for consult and re-consult as needed. SIGNATURE: Kianna Chavez APRN.LAUNDRY AIDE PAGER/CONTACT #: [phone] [facility] 10-19-2024 Note HNO ID: [id number] Author: GISSELL TAPIA MD Service: Hospital Medicine Author Type: Physician Type: Progress Notes Filed: 10/19/2024 12:12 Note Text: ROU PROGRESS NOTE SERVICE DATE: 10/19/2024 SERVICE TIME: 11:40 AM Hospital Medicine/Primary Attending: Gissell Tapia MD Subjective INTERVAL HPI: per pts -pt with hallucinations , has had hallucinations while at [place] seeing bugs crawling on the wall She has not been driving for 2.5 yrs due to the foot drop , recently failed the BMV testing for vision as she could not follow the commands Per pt has been confused since sep 17 2024 which is new for her , was admitted in [place] , had some improvement for 4-5 days after discharge but symptoms returned ,she prior to that cooked ,did laundry, she did not do finances or drive Has lost 30 pounds in a year for at least the last month has had poor appetite MEDICATIONS: Reviewed Objective PHYSICAL EXAM: BP 130/60 Pulse 64 Temp (Src) 99.1 (Oral) Resp 18 Ht 5' 5 (1.65m) Wt 168 lb (76.2kg) SpO2 96% BMI 27.96 kg/(m2). O2 Therapy: Room Air Physical Exam Performed GENERAL: Alert, no distress, cooperative LUNGS: Lungs clear to auscultation CARDIAC: Normal S1 and S2 ABDOMEN: Abdomen soft, non-tender, BS normal EXTREMITIES: Rt foot drop ,inability to dorsiflex Lines, Drains, and Airways Line Duration Peripheral 10/16/24 External Facility Left Forearm 20 Gauge 3 days DATA: Diagnostic tests reviewed for today's visit: Most recent labs and imaging results. Most recent EKG Assessment/Plan 84-year-old female with a past medical history of paroxysmal atrial fibrillation on Eliquis, DM2, and essential hypertension, presenting with worsening mental status 3 days prior to admission and abdominal discomfort Principal Problem: Altered mental status (POA: Yes) Lower abdominal pain (POA: Yes) Weight loss (POA: Yes) Diarrhea (POA: Yes) Patient had recent admission to [facility] on 09/17/2024 with concern for cholecystitis and acute mental status change. At that time head CT and MRI of brain was without acute findings other than chronic microvascular ischemic changes. -Family reports that she has had more lethargy and intermittent confusion over the past several months. -MRI of the brain revealed no acute findings, although temporal horn atrophy could suggest underlying neurodegenerative dementia. EEG is negative for seizure activity. -She also has had baseline symptoms consistent with age-related dementia over the past year. -Gastroenterology is consulted for evaluation of abdominal discomfort and consideration of Whipple's evaluation. -CT abdomen/pelvis reveals endometrial thickening with recommendation for nonemergent pelvic ultrasound. Also diverticulosis and cholelithiasis without evidence for cholecystitis. Ammonia level is normal. Right upper quadrant ultrasound is suggestive of cholelithiasis . -GI planning EGD with biopsies on 10/21, to hold Eliquis starting 10/19. -She continues to have poor oral intake. Will provide nutritional supplements. IV hydration supplementation as needed. -Has never had a colonoscopy- GI will determine if needs to be done inpatient versus outpatient. -TSH= 0.103. checked T3 and T4 which are normal B12 is low - replace Active Problems: Spinal stenosis (POA: Yes) Pt with intermittent swelling and erythema rt foot With rt foot drop since 2021 since lumbar laminectomy in 2021 Venous duplex is negative Do not suspect cellulitis - abx have been discontinued Atrial fibrillation (HCC) (POA: Yes) Holding eliquis for EGD and possible colonoscopy on Monday Family is aggreable for colonoscopy Had 10 beat run of VT on 10/18/24 Malnutrition of moderate degree (HCC) (POA: Yes) Diet supplements Medication and Non-Pharmacologic VTE Prophylaxis/Anticoagulants VTE Prophylaxis: VTE prophylaxis appropriate Disposition: Home Plan of care discussed with: Provider, RN, Patient and Family/Significant Other: SIGNATURE: Gissell Tapia MD PATIENT NAME: Saeed Sarabia DATE: October 19, 2024 TIME: 11:40 AM etx [id number] [facility] 10-19-2024 Note HNO ID: [id number] Author: SUDHIR SANTOS LISW Service: Care Management Author Type: Auto Body Worker Type: Care Mgt Progress Note Filed: 10/19/2024 10:19 Note Text: CARE MANAGEMENT PROGRESS NOTE SERVICE DATE: 10/19/2024 SERVICE TIME: 10:18 AM LOS: 1 day Post-Acute Discharge Planning Patient Goal(s): General wellness, Be able to go home [place] of Choice Explained: [place] of Choice Given: No Reason Not Given: No placements necessary Discharge Planning Participant(s): Patient Patient/Family Comments: Anticipated # of Days Until Discharge: 4 Transport at Discharge: Transportation Arrangements: Car Needs Prior to Discharge: Needs Prior to Discharge: To Be Determined, Discharge Prescriptions, Discharge Transportation, Procedure Procedure Needed: EGD w/ biopsies on Saturday 10/21 Post-Acute Discharge Plan: Per GI, will repeat EGD with biopsies on Saturday 10/21, please hold AC starting 10/19 Per Neuro, Brain health follow-up (requested) Spouse to transport pt home upon DC SIGNATURE: FARRAH Mcintyre PATIENT NAME: Saeed Sarabia DATE: October 19, 2024 TIME: 10:18 AM [facility] 10-18-2024 Note HNO ID: [id number] Author: DAWIT DORMAN MD Service: Hospital Medicine Author Type: Physician Type: Progress Notes Filed: 10/18/2024 16:54 Note Text: ROU PROGRESS NOTE SERVICE DATE: 10/18/2024 SERVICE TIME: 4:17 PM Hospital Medicine/Primary Attending: Dawit Dorman MD Subjective INTERVAL HPI: Family reports significant improvement in her mentation and behavior today. MEDICATIONS: Reviewed Objective PHYSICAL EXAM: BP 165/60 Pulse 68 Temp (Src) 97.9 (Oral) Resp 18 Ht 5' 5 (1.65m) Wt 168 lb (76.2kg) SpO2 95% BMI 27.96 kg/(m2). O2 Therapy: Room Air Physical Exam Performed GENERAL: Alert, no distress, cooperative, Obese SKIN: Skin color, texture, turgor normal. No rashes or lesions. HEAD/SINUSES: No significant findings NECK: No jugulovenous distention, Supple, No thyromegaly BACK: No CVAT. LUNGS: Lungs clear to auscultation, Good diaphragmatic excursion CARDIAC: Normal S1 and S2; no rubs, murmurs, or gallops ABDOMEN: Abdomen soft, slight epigastric region tenderness. BS normal, No masses or organomegaly EXTREMITIES: Right foot with erythema, and dorsal swelling, with reduced sensation and inability to dorsiflex. NEURO: No focal sensory or motor deficits other than right lower extremity as reported above. Lines, Drains, and Airways Line Duration Peripheral 10/16/24 External Facility Left Forearm 20 Gauge 2 days Reviewed lines and needs to be continued: REASONS: Difficulty in obtaining/maintaining access and Telemetry DATA: Diagnostic tests reviewed for today's visit: Most recent labs and imaging results. Assessment/Plan 84-year-old female with a past medical history of paroxysmal atrial fibrillation on Eliquis, DM2, and essential hypertension, presenting with worsening mental status 3 days prior to admission and abdominal discomfort. Altered mental status, intermittent abdominal discomfort, approximately 30 pound weight loss over the past 6 months due to poor oral intake. TSH low. (POA: Yes) Assessment AND Plan: -Patient had recent admission to [facility] on 09/17/2024 with concern for cholecystitis and acute mental status change. At that time head CT and MRI of brain was without acute findings other than chronic microvascular ischemic changes. -Family reports that she has had more lethargy and intermittent confusion over the past several months. -MRI of the brain today revealed no acute findings, although temporal horn atrophy could suggest underlying neurodegenerative dementia. EEG is negative for seizure activity. -She also has had baseline symptoms consistent with age-related dementia over the past year. -Gastroenterology is consulted for evaluation of abdominal discomfort and consideration of Whipple's evaluation. -CT abdomen/pelvis reveals endometrial thickening with recommendation for nonemergent pelvic ultrasound. Also diverticulosis and cholelithiasis without evidence for cholecystitis. Ammonia level is normal. Right upper quadrant ultrasound is pending. -GI planning EGD with biopsies on 10/21, to hold Eliquis starting 10/19. -She continues to have poor oral intake. Will provide nutritional supplements. IV hydration supplementation as needed. -Has never had a colonoscopy- GI will determine if needs to be done inpatient versus outpatient. -TSH= 0.103. Will check T3 and T4. Active Problems: Spinal stenosis s/p L3-5 lumbar laminectomy 03/2022 with chronic right foot drop and intermittent symptoms suspicious of reflex sympathetic dystrophy. (POA: Yes) Assessment AND Plan: -Family reports that she has had intermittent erythema, swelling, and discomfort of right foot, as well as persistent right foot drop since lumbar laminectomy in 2021. -Venous duplex reveals no DVT. -Do not suspect cellulitis or infection of right foot. Will discontinue IV antibiotics. Paroxysmal atrial fibrillation (HCC) (POA: Yes) Assessment AND Plan: -Eliquis on hold after today for EGD on 10/21 -Had asymptomatic episode of 10 beats of V. tach today. Malnutrition of moderate degree, chronic anemia. (HCC) (POA: Yes) Assessment AND Plan: -Patient reports poor appetite, without nausea or vomiting. She has lost approximately 30 pounds in the past 6 months according to family. -Concern for malnutrition. Check iron and vitamin levels. -Hb has fluctuated between 13.4 and 11.8, likely due to dilution with IV hydration. -GI workup underway as above. Malnutrition Diagnosis supported by Registered Dietitian:Moderate Protein-Calorie Malnutrition Based on: Subcutaneous Fat Loss, Muscle Loss, Insufficient Energy Intake Assessment: I have reviewed the result of the malnutrition assessment and plan and agree Plan: Diet, Supplements, Medications Medication and Non-Pharmacologic VTE Prophylaxis/Anticoagulants VTE Prophylaxis: VTE prophylaxis appropriate Disposition: To be determined Plan of care discussed with: Pr (more content not included)... [facility] 10-18-2024 Note HNO ID: [id number] Author: HAL ALVAREZ MD Service: Neurology General Author Type: Resident Type: Plan of Care Filed: 10/18/2024 15:09 Note Text: NEUROLOGY PLAN OF CARE NOTE Patient: Saeed Sarabia Date: October 18, 2024 Time: 3:05 PM Interval Events: -MRI brain without acute findings though notable temporal horn atrophy which could suggest an underlying neurodegenerative dementia -Urine porphobilinogen neg -EEG negative for seizures or epileptiform discharges -GI consulted, considering biopsy for evaluation of Whipple's Temporal relationship between abdominal pain of unclear etiology and episodic memory complaints raises concern for whipple's; alternatively, there may be an underlying neurodegenerative process with acute delirium in the setting of abdominal pain. If remainder of work-up is unremarkable, would have her follow-up with brain health clinic. Recommendations: -D/C EEG -Appreciate GI input -Brain health follow-up (requested) Patient plan discussed with staff neurologist. Neuro to sign off. Please page the [facility] [place] [phone] if any further questions or concerns. Hal Alvarez MD PGY-4 [facility] 10-17-2024 Note HNO ID: [id number] Author: ATUL MARITN DO Service: General Internal Medicine Author Type: Physician Type: Plan of Care Filed: 10/17/2024 15:04 Note Text: The patient's right foot is swollen, red, hot and painful. An ultra sound of the right lower extremity was negative for DVT. Most likely developing a cellulitis of the right foot. No tinea pedis seen on exam. Initiate therapy with Ancef. [facility] 10-17-2024 Note HNO ID: [id number] Author: BRITNEY CHOUDHURY RN Service: Care Management Author Type: Registered Nurse Type: Care Mgt Initial Assessment Filed: 10/17/2024 09:26 Note Text: CARE MANAGEMENT: ASSESSMENT AND DISCHARGE PLAN SERVICE DATE: October 17, 2024 SERVICE TIME: 9:20 AM PCP: Galindo Miller CNP, LAUNDRY AIDE Primary Contact: Extended Emergency Contact Information Primary Emergency Contact: Sammy Sarabia Mobile Relation: Spouse Admission Status: Observation Insurance Provider: MEDICARE A AND B Discharge Planning requested by: Per Department Practice Potential Transition Plans Home Advance Directives Current Advance Directive: Health Care Power of Ppap Coordinator In Chart: No Retirement Officer Attempted to Assist with AD Completion: Yes Action: Education Provided Current Living Arrangements and Support Lives with: Spouse/significant other Type of Residence: Private Residence (House) Does the patient have to climb stairs at home?: No Support: Spouse/significant other How do you manage to accomplish the following: Independent: Bathe/Shower;Dress;Meals/Meal Prep;Going to the bathroom;Medication Management Needs Assistance: Ambulation;Transportation to appointments/community Current Services/Equipment Current Post-Acute Service(s): DME Current DME Type: Rolling walker Discharge Planning Patient Goal(s): Independent living, Be able to go home, General wellness Are you interested in bedside delivery of your medications? No Discharge Planning Participant(s): Patient;Spouse/significant other Caregiver Assessment: Caregiver is ready, willing and able to meet the patient's needs as recommended by the inter-professional team: No Caregiver needed Transport at Discharge: Transportation Arrangements: Car Destination: Home Needs Prior to Discharge: Needs Prior to Discharge: To Be Determined Post-Acute Discharge Plan: CM met with patient at bedside to complete assessment. CM introduced self and role. Patient is agreeable to CM visit with at bedside. Patient knows her age, and month of , but not date of , and able to provide partial address. confirmed address. Patient is a 84-year-old female who presents with altered mental status . PMH: T2DM, cholecystitis, HTN, CAD, Afib, gastric ulcers, foot drop, h/o back surgery. Patient reports lives with with ramp steps to enter, and 0 steps inside. Patient reports independent with ADL and iADL with assisting with food prep, no longer drives, retired, and uses a walker. Patient denies issues with drugs, alcohol, and MH at this time. Patient denies being active with community services. reports patient had home PT after back surgery 2 yrs ago. Patient denies financial, social, safety concerns at this time. Skilled needs TBD. to transport. CM/SW available for d/c needs. HCPOA paperwok on file within [facility] [employer] and verified to be current as of date/time of this note: No Legal Next of Kin Hierarchy per [place] Revised Code: Legal Spouse- Sammy Sarabia [phone] Majority of Adult Children (consensus if possible) Parents Majority of Adult Siblings (consensus if possible) Nearest Blood Relative reports patient has HCPOA forms at home. Instructed that he can bring forms in to file. SIGNATURE: Britney Choudhury RN PATIENT NAME: Saeed Sarabia DATE: October 17, 2024 TIME: 9:19 AM [facility] 10-17-2024 Note HNO ID: [id number] Author: ATUL MARTIN DO Service: General Internal Medicine Author Type: Physician Type: Progress Notes Filed: 10/17/2024 09:18 Note Text: ROU PROGRESS NOTE Name: Saeed Sarabia SERVICE DATE: 10/17/2024 SERVICE TIME: 9:01 AM Hospital Medicine/Primary Attending: Atul Martin DO ASSESSMENT AND PLAN *Altered mental status (10/16/2024) was in her normal cognitive state until three days ago uncertain as to the cause no apparent metabolic abnormalities no evidence for stroke history does not support a diagnosis of TIA Lower abdominal pain (10/16/2024) has cholelithiasis evaluated for acute cholecystitis at an outside hospital HIDA scan was negative, no surgery results of the CT scan of the abdomen and pelvis noted This patient was recently discharged from the [facility] where she was evaluated for RLQ abdominal pain. Her evaluation ultimately resulted in her gall bladder not being removed. An EGD was done which demonstrated gastric ulcers and esophagitis for which she was placed on Protonix. She was also treated with Bactrim for a UTI. Upon discharge from the hospital she was at her cognitive baseline and doing well. Then on Monday of this week she developed the change in mental status again which was also a reason for her hospitalization at [facility]. Per her she seems to zone out and is not responsive to questions. Denies chest pain and shortness of breath. Still complaining of right sided lower quadrant abdominal pain. Per the patient her abdomen is distended. The patient stated that she regular bowel movements. In fact her stools are loose from taking metformin. SUBJECTIVE INTERVAL HPI: I still have some abdominal pain MEDICATIONS: Reviewed OBJECTIVE PHYSICAL EXAM: BP 157/85 Pulse 65 Temp (Src) 97.9 (Oral) Resp 18 Ht 5' 5 (1.65m) Wt 168 lb (76.2kg) SpO2 97% BMI 27.96 kg/(m2). O2 Therapy: Room Air GENERAL: alert, no distress SKIN: No acute rashes LUNGS: clear. No wheezing or crackles CARDIAC: regular rate and rhythm ABDOMEN: Abdomen soft, mildly tender in the right upper quadrant. Distended. No guarding, rigidity or rebound tenderness. EXTREMITIES: Extremities normal. No deformities, edema, clubbing or skin discoloration. NEURO: Grossly normal cognition, motor function, and cranial nerves III-XII DATA: Diagnostic tests reviewed for today's visit: Most recent labs Most recent imaging VTE Prophylaxis: Early Ambulation Disposition: Home Plan of care discussed with: Provider, RN, Patient and Family/Significant Other: SIGNATURE: Atul Martin DO DATE: October 17, 2024 TIME: 9:01 AM [facility] 10-16-2024 Note SARS-COV-2 (AGENT OF COVID-19) RNA: Not detected INFLUENZA A RNA: Not detected INFLUENZA B RNA: Not detected RESPIRATORY SYNCYTIAL VIRUS (RSV) RNA: Not detected [facility] Comment on above: Performed By: #### [id number] ####[facility]ORATORY[facility] [id number] [address] [place] [facility] 10-16-2024 Note HNO ID: [id number] Author: BRIANA SCHWARZ PA-C Service: ? Author Type: Physician Supervisor Fur Floor Worker Type: Progress Notes Filed: 10/16/2024 12:57 Note Text: [facility] October 16, 2024 Saeed S Mize 1940 Patient presents with: Abdominal Pain: X6 wks on and off, change in mental status x3 days Was recently treated for uti getting better then abd pain and admitted to [facility] and then transferred to [place] and admitted for a week with gall stone. Was doing well until about 2-3 days ago and became confused and still lower abd pain. No nausea vomiting diarrhea. 10/16/24 1222 BP: 156/61 Pulse: 76 Resp: 18 Temp: 37.4 ?C (99.3 ?F) TempSrc: Temporal SpO2: 98% The patient was seen today for abd pain and confusion. The patient was advised that her complaints and condition require a higher level of care and she was subsequently referred to ER due to the limitations of [facility] testing capabilities. The patient verbalized understanding and denies questions. Patient transported to Emergency Department by who refused transport Abd exam with lower abd pain no guarding no masses no rebound. The patient refused transfer to ER by ambulance. The patient was accompanied by and states that they feel safe to self transport. Advised of possible risks. Report called Briana Schwarz PA-C [facility] 10-16-2024 History of Present illness Narrative Images from the original note were not included. [facility] October 16, 2024 Saeed Nash Mize 1940 Patient presents with: Abdominal Pain: X6 wks on and off, change in mental status x3 days Was recently treated for uti getting better then abd pain and admitted to [facility] and then transferred to [facility] and admitted for a week with gall stone. Was doing well until about 2-3 days ago and became confused and still lower abd pain. No nausea vomiting diarrhea. 10/16/24 1222 BP: 156/61 Pulse: 76 Resp: 18 Temp: 37.4 C (99.3 F) TempSrc: Temporal SpO2: 98% The patient was seen today for abd pain and confusion. The patient was advised that her complaints and condition require a higher level of care and she was subsequently referred to ER due to the limitations of [facility] testing capabilities. The patient verbalized understanding and denies questions. Patient transported to Emergency Department by who refused transport Abd exam with lower abd pain no guarding no masses no rebound. The patient refused transfer to ER by ambulance. The patient was accompanied by and states that they feel safe to self transport. Advised of possible risks. Report called Briana Schwarz PA-C [facility] documented in this encounter [facility] 10-10-2024 History of Present illness Narrative Associated Problem(s): Other acute sinusitis Discussed with pt and spouse likely viral in origin with differentials of COVID, FLU, or RSV to name a few, they do not wish to be tested and would not take anti virals if needed At this point they can continue to manage with fluids, rest, tylenol prn fever/body aches and Coricidin HPB for other symptoms Will contact office if worsens Associated Problem(s): Non-recurrent acute suppurative otitis media of right ear without spontaneous rupture of tympanic membrane Likely secondary to sinus infection Will treat with atb Fu if not better Pt states a couple days ago s/s include congestion, runny nose, sinus headache, sinus pressure, right side pain, right ear pain, sore/scratchy throat, cough, sweats, and body aches. Pt is taking tylenol and c Images from the original note were not included. Saeed Sarabia is a 83 y.o. female presents with chief complaint of Cough HPI: Pt states a couple days ago s/s include congestion, runny nose, sinus headache, sinus pressure, right side pain, right ear pain, sore/scratchy throat, cough, sweats, and body aches. Pt is taking tylenol and coricedn HPB Clear nasal drainage, +sinus pressure and congestion with right ear pain as well SUBJECTIVE: MEDICATIONS: Current Outpatient Medications Medication Instructions amoxicillin-clavulanate (Augmentin) 875-125 MG tablet 875 mg, Oral, 2 times daily bumetanide (BUMEX) 1 mg, Oral, Daily PRN Eliquis 5 mg, 2 times daily ezetimibe (ZETIA) 10 mg, Nightly fluconazole (Diflucan) 150 MG tablet Take 1 dose, then repeat in 3 days glipiZIDE (GLUCOTROL) 5 mg, Oral, 2 times daily before meals lisinopril 20 mg, Daily RT metFORMIN (GLUCOPHAGE) 1,000 mg, Oral, 2 times daily with meals metoprolol succinate XL (TOPROL-XL) 100 mg, Every morning pantoprazole (PROTONIX) 40 mg, Oral, 2 times daily before meals rosuvastatin (CRESTOR) 5 mg, Nightly spironolactone (ALDACTONE) 25 mg, Once ALLERGIES: Allergies Allergen Reactions Morphine GI intolerance and Nausea Only REVIEW OF SYMPTOMS: Review of Systems Constitutional: Positive for fatigue and hot flashes. Negative for appetite change, chills and fever. HENT: Positive for congestion, ear pain, rhinorrhea, sinus pressure and sore throat. Eyes: Negative for pain, discharge, redness and visual disturbance. Respiratory: Negative for cough (occ), shortness of breath and wheezing. Cardiovascular: Negative for chest pain, palpitations and leg swelling. Gastrointestinal: Negative for abdominal pain, blood in stool, constipation, diarrhea, nausea and vomiting. Genitourinary: Negative for difficulty urinating, dysuria and frequency. Musculoskeletal: Negative for arthralgias, back pain, joint swelling and myalgias. Skin: Negative for rash and wound. Neurological: Negative for dizziness, tremors, seizures, syncope and [...] not on file. OBJECTIVE: Visit Vitals BP 138/78 (BP Location: Left arm, Patient Position: Sitting, BP Cuff Size: Adult long) Pulse 67 Temp 99.2 F (Temporal) Wt 156 lb SpO2 97% BMI 26.78 kg/m Smoking Status Never BSA 1.79 m Physical Exam Vitals and nursing note reviewed. Constitutional: General: She is not in acute distress. Appearance: Normal appearance. She is ill-appearing (mild). She is not toxic-appearing. HENT: Head: Normocephalic and atraumatic. Right Ear: External ear normal. There is impacted cerumen. Left Ear: Tympanic membrane, ear canal and external ear normal. Ears: Comments: Cerumen spatula used and removed large hard chunk of cerumen, TM: mod erythema and fluid noted Nose: Congestion and rhinorrhea present. Mouth/Throat: Mouth: Mucous membranes are moist. Pharynx: No oropharyngeal exudate or posterior oropharyngeal erythema. Eyes: Extraocular Movements: Extraocular movements intact. Conjunctiva/sclera: Conjunctivae normal. Cardiovascular: Rate and Rhythm: Normal rate and [...] Edema present. Left lower leg: Edema present. Lymphadenopathy: Cervical: No cervical adenopathy. Skin: General: Skin is warm and dry. Capillary Refill: Capillary refill takes 2 to 3 seconds. Findings: No rash. Neurological: General: No focal deficit present. Mental Status: She is alert and oriented to person, place, and time. Psychiatric: Mood and Affect: Mood normal. Behavior: Behavior normal. Thought Content: Thought content normal. Judgment: Judgment normal. ASSESSMENT AND PLAN: No follow-ups on file. Problem List Items Addressed This Visit Non-recurrent acute suppurative otitis media of right ear without spontaneous rupture of tympanic membrane - Primary Likely secondary to sinus infection Will treat with atb Fu if not better Relevant Medications amoxicillin-clavulanate (Augmentin) 875-125 MG tablet Other acute sinusitis Discussed with pt and spouse likely viral in origin with differentials of COVID, FLU, or RSV to name a few, they do not wish to be tested and would not take anti virals if needed At this point they can continue to manage with fluids, rest, tylenol prn fever/body aches and Coricidin HPB for other symptoms Will contact office if worsens documented in this encounter [facility] 09-30-2024 History of Present illness Narrative Associated Problem(s): Acute gastric ulcer without hemorrhage or perforation Is going to fu with GI Continue PPI at BID ?causing some looser stools?? Obtain copies of EGD Pt is still having stomach issues. A referral to the heart doc for her was sent in regards to pt possible need for gallbladder removal. Pt does have an stomach ulcer Pt is having dull achy pain at times in and out Glucose was 102 9am Saeed Sarabia is a 83 y.o. female presents with chief complaint of Diabetes and Abdominal Pain HPI: Here for TCM follow up: Was treated approx 4 weeks ago for what she thought was UTI or yeast infection, started on amox Her symptoms progressed to confusion, ultimately she was evaluated in [facility] ER, had CT scan head/abd/pelvis-see report and labs and transferred to [facility] for evaluation for gallbladder w cholelithiasis She did not have surgery, she did have EGD told had stomach ulcer and was sent home w BID pantoprazole She is hear now with daughter, she is feeling better, but is still having some lower abd pain, no longer nausea, does not c/o dysuria, does have some loose stools w urgency, no fever. Fatigue is improving Is going to have having fu with surgeon and GI as well Her meds have been reconciled as well It is of note her CT abd/pelvis shows : thickening endometrial lining. She denies any family hx of uterine or ovarian cancer. When asked in more detail, possible scant amounts of blood noted in underwear, but not bright red. No bloating, or unintentional weight loss. SUBJECTIVE: MEDICATIONS: Current Outpatient Medications Medication Instructions bumetanide (BUMEX) 1 mg, Oral, Daily PRN Eliquis 5 mg, 2 times daily ezetimibe (ZETIA) 10 mg, Nightly fluconazole (Diflucan) 150 MG tablet Take 1 dose, then repeat in 3 days glipiZIDE (GLUCOTROL) 5 mg, Oral, 2 times daily before meals lisinopril 20 mg, Daily RT metFORMIN (GLUCOPHAGE) 1,000 mg, Oral, 2 times daily with meals metoprolol succinate XL (TOPROL-XL) 100 mg, Every morning pantoprazole (PROTONIX) 40 mg, 2 times daily before meals rosuvastatin (CRESTOR) 5 mg, Nightly spironolactone (ALDACTONE) 25 mg, Once ALLERGIES: Allergies Allergen Reactions Morphine GI intolerance and Nausea Only REVIEW OF SYMPTOMS: Review of Systems Constitutional: Positive for fatigue. Negative for appetite change, chills and fever. HENT: Negative for congestion, ear pain and sore throat. Eyes: Negative for pain, discharge, redness and visual disturbance. Respiratory: Negative for cough, shortness of breath and wheezing. Cardiovascular: Negative for chest pain, palpitations and leg swelling. Gastrointestinal: Positive for abdominal pain and diarrhea. Negative for blood in stool, constipation, nausea and vomiting. Genitourinary: Positive for vaginal discharge. Negative for difficulty urinating, dysuria and frequency. Musculoskeletal: Positive for back pain. Negative for arthralgias, joint swelling and myalgias. Skin: Negative for rash and wound. Neurological: Negative for dizziness, tremors, seizures, syncope and [...] not on file. OBJECTIVE: Visit Vitals BP 132/80 (BP Location: Left arm, Patient Position: Sitting, BP Cuff Size: Adult long) Pulse 90 Temp 97.8 F (Temporal) Resp 18 Ht 5' 4 Wt 156 lb 12.8 oz SpO2 99% BMI 26.91 kg/m Smoking Status Never BSA 1.79 m Physical Exam Vitals and nursing note reviewed. Constitutional: General: She is not in acute distress. Appearance: Normal appearance. She is not ill-appearing or diaphoretic. HENT: Head: Normocephalic and atraumatic. Right Ear: [...] no mass. Tenderness: There is no abdominal tenderness (mild tenderness lower mid abd/suprapubic region). Musculoskeletal: General: Normal range of motion. Cervical back: Normal range of motion and neck supple. Right lower leg: Edema present. Left lower leg: Edema present. Lymphadenopathy: Cervical: No cervical adenopathy. Skin: General: Skin is warm and dry. Capillary Refill: Capillary refill takes 2 to 3 seconds. Findings: No rash. Neurological: General: No focal deficit present. Mental Status: She is alert and oriented to person, place, and time. Psychiatric: Mood and Affect: Mood normal. Behavior: Behavior normal. Thought Content: Thought content normal. Judgment: Judgment normal. ASSESSMENT AND PLAN: No follow-ups on file. Problem List Items Addressed This Visit Atrial fibrillation (CMS/HCC) Continue eliquis therapy as b donna therapy No current symptoms Continue w cardiology Benign essential HTN ([facility]) Please check blood pressure daily and record DASH diet Limit caffeine Take medication as directed Contact office if chest pain, pressure, dizziness, shortness of breath, swelling legs Recommend slow position changes Current meds: lisinopril, metoprolol, spironolactone Unspecified diastolic (congestive) heart failure ([facility]) Continue with cardiology as well as diuretics, BONIFACIO and b donna Type 2 diabetes mellitus without complication ([facility]) Check blood sugars daily, notify if <70 [...] metformin, bonifacio, statin, A1c 6.1% on 08/20/2024 Type 2 diabetes mellitus with diabetic neuropathy, unspecified ([facility]) Check blood sugars daily, notify if <70 [...] metformin Current A1c test: 6.1% on 08/20/2024 Acute cholecystitis Was transferred to [facility] for this, no surgery as of yet Will need to review notes Acute metabolic encephalopathy - Primary Was part of diagnosis when admitted to [facility] for gallballer resolved Thickened endometrium Noted on CT scan 09/17/24 Discussion of this was done today with daughter and pt We discussed that this could be a benign or a malignant etiology She will think about what to do in the next few weeks and I will contact her early October for answer as to what we do next Acute gastric ulcer without hemorrhage or perforation Is going to fu with GI Continue PPI at BID ?causing some looser stools?? Obtain copies of EGD Relevant Medications pantoprazole (ProtoNix) 40 MG EC tablet Associated Problem(s): Thickened endometrium Noted on CT scan 09/17/24 Discussion of this was done today with daughter and pt We discussed that this could be a benign or a malignant etiology She will think about what to do in the next few weeks and I will contact her early October for answer as to what we do next Associated Problem(s): Type 2 diabetes mellitus without [...] metformin, bonifacio, statin, A1c 6.1% on 08/20/2024 Associated Problem(s): Acute cholecystitis Was transferred to [facility] for this, no surgery as of yet Will need to review notes Associated Problem(s): Unspecified diastolic (congestive) heart failure (CMS/HCC) Continue with cardiology as well as diuretics, BONIFACIO and b donna Associated Problem(s): Benign essential HTN (CMS/HCC) Please check blood pressure daily and record DASH diet Limit caffeine Take medication as directed Contact office if chest pain, pressure, dizziness, shortness of breath, swelling legs Recommend slow position changes Current meds: lisinopril, metoprolol, spironolactone Associated Problem(s): Atrial fibrillation (CMS/HCC) Continue eliquis therapy as b donna therapy No current symptoms Continue w cardiology Associated Problem(s): Type 2 diabetes mellitus with diabetic neuropathy, unspecified ([facility]) Check blood sugars daily, notify if <70 [...] metformin Current A1c test: 6.1% on 08/20/2024 Associated Problem(s): Acute metabolic encephalopathy Was part of diagnosis when admitted to [facility] for gallballer resolved documented in this encounter [facility] 09-30-2024 Instructions Galindo Miller NP - 09/30/2024 10:30 AM EST Keep appts with GI and Cardiology I will call first week of October to see what we want to do in regards to the thickening of the uterine wall documented in this encounter [facility] 09-21-2024 Note Hospital Medicine Discharge Summary Final Discharge Diagnosis: Suprapubic abdominal pain Metabolic encephalopathy Gastric ulcers Esophagitis, LA grade A Cholelithiasis Afib HTN T2DM CHF Admission Diagnosis: Acute cholecystitis [K81.0] Cholecystitis [K81.9] Hospital course: 83yoF who was admitted from [facility] to [facility] on 09/17 for concern for cholecystitis. Patient was seen at [facility] ED for abdominal pain and AMS. CT head was unremarkable but CT Abd showed signs concerning for cholecystitis with the presence of cholelithiasis. She was transferred to [facility] with General Surgery evaluation. HIDA was negative for acute cholecystitis, so no surgical intervention was pursued. LFTs were wnl. As the patient continued to exhibit abdominal pain and N/V, GI was consulted as well. EGD was performed that showed esophagitis and non-bleeding gastric ulcers. She was provided with PPI and instructed to follow up outpatient for repeat EGD in several weeks. H pylori testing pending at time of discharge. The patient was encephalopathic as well without clear cause. UA and metabolic testing was unremarkable. MRI was unremarkable as well beyond chronic ischemic changes. Regardless, she was treated with 3 days Bactrim and showed improvement to her mentation. Neurology was consulted who recommended no further diagnostics as the patient returned to baseline prior to discharge. PT/OT had recommended SNF for which the patient and family politely declined. They declined home health care services as well due to poor experiences in the past. They were amenable to following up with PT/OT outpatient. Surgical, Invasive or Diagnostic Procedures Done During Admission: EGD Consultations During Admission: Gastroenterology, General Surgery, and Neurology Dear Dr. Paul MD, Barbara is advised to follow up with you within 1-2 weeks. Items to follow up in ambulatory setting: Patient will need repeat EGD and follow up with H pylori testing. No definitive etiology of AMS identified. Ongoing neurocognitive testing as warranted. Referrals were sent for PT/OT Follow-up with: Gastroenterology Scheduled appointments: No future appointments. Your medication list START taking these medications Instructions Last Dose Given Next Dose Due pantoprazole 40 mg EC tablet Commonly known as: ProtoNix Take 1 tablet (40 mg) by mouth before breakfast and before evening meal for 196 doses. Do not crush, chew, or split. CHANGE how you take these medications Instructions Last Dose Given Next Dose Due spironolactone 25 mg tablet Commonly known as: Aldactone What changed: how much to take how to take this when to take this reasons to take this TAKE 1/2 (ONE-HALF) OF A TABLET BY MOUTH EVERY DAY CONTINUE taking these medications Instructions Last Dose Given Next Dose Due acetaminophen 500 mg tablet Commonly known as: Tylenol apixaban 5 mg tablet Commonly known as: Eliquis Take 1 tablet (5 mg) by mouth in the morning and at bedtime. bumetanide 1 mg tablet Commonly known as: Bumex Take 1 tablet (1 mg) by mouth if needed (leg swelling and dyspnea). ezetimibe 10 mg tablet Commonly known as: Zetia Take 1 tablet (10 mg) by mouth once daily as directed. glipiZIDE 5 mg tablet Commonly known as: Glucotrol lisinopril 20 mg tablet Take 1 tablet (20 mg) by mouth in the morning. metFORMIN 1,000 mg tablet Commonly known as: Glucophage metoprolol succinate XL 100 mg 24 hr tablet Commonly known as: Toprol-XL TAKE 1 TABLET BY MOUTH IN THE MORNING nitroglycerin 0.4 mg SL tablet Commonly known as: Nitrostat rosuvastatin 5 mg tablet Commonly known as: Crestor Take 1 tablet (5 mg) by mouth at bedtime. STOP taking these medications tiZANidine 4 mg tablet Commonly known as: Zanaflex Where to Get Your Medications These medications were sent to [facility] - [place], [place] - [address] [place] [address] [place] [address], [facility] [id number] pantoprazole 40 mg EC tablet Saeed is allergic to morphine. Disposition: Home or Self Care () Discharge Condition: Stable Code Status: Full Code Diagnostic Results Hematology: Results from last 7 days Lab Units 09/21/24 0406 09/20/24 0603 WBC AUTO 10*3/uL 7.73 7.70 HEMOGLOBIN g/dL 12.3 12.7 HEMATOCRIT % 38.8 39.7 MCV fL 94.2 93.6 PLATELETS AUTO 10*3/uL 289 286 Chemistry: Results from last 7 days Lab Units 09/21/24 0406 09/20/24 0604 09/19/24 0525 09/18/24 0720 09/17/24 1946 SODIUM mmol/L 138 138 137 < > 136 POTASSIUM mmol/L 4.4 4.1 4.0 < > 4.2 CHLORIDE mmol/L 104 104 102 < > 102 CO2 mmol/L 26 27 25 < > 24 BUN mg/dL 15 12 12 < > 16 CREATININE mg/dL 1.00 0.86 0.79 < > 0.68 GLUCOSE mg/dL 131* 115* 147* < > 128* MAGNESIUM mg/dL -- -- 1.7* -- 1.5* CALCIUM mg/dL 8.7 9.0 9.4 < > 9.2 PHOSPHORUS mg/dL -- -- -- -- 3.3 < > = values in this inte (more content not included)... [facility] 09-21-2024 Note Followed up with theodore sung and family to discuss her discharge plan. At this time they continue to decline home healthcare and SNF placement but are agreeable to following up with therapies as an outpatient . [facility] 09-21-2024 Note Physical Therapy Physical Therapy Treatment Patient Name: Saeed Sarabia : 1940 Today's Date: 09/21/2024 Patient Active Problem List Diagnosis Coronary arteriosclerosis Atrial fibrillation (CMS/HCC) Diastolic heart failure (CMS/HCC) Essential hypertension Hyperlipidemia Mitral valve regurgitation Type 2 diabetes mellitus without complication (CMS/HCC) Constipation Foot drop, right foot Right leg weakness Spinal stenosis Acute abdominal pain Acute metabolic encephalopathy Acute cholecystitis Cholelithiasis Objective Upon arrival pt seated in bedside recliner. General Visit Information: PT Last Visit PT Received On: 09/21/24 General Family/Caregiver Present: Yes ( & daughter present) Subjective: pt agreeable to participate with therapy. Activity Tolerance Activity Tolerance Ambulation comments: 40 ft RW SBA Activity Tolerance Comments: pt amb 40 ft RW SBA Precautions Precautions Medical Precautions: chair alarm, telemetry Pain Pain Assessment Pain Assessment: (pt does not rate her abdominal discomfort) Cognition Cognition Overall Cognitive Status: Impaired Arousal/Alertness: Delayed responses to stimuli Orientation Level: Oriented to person, Oriented to place General Assessment Static Standing Balance Static Standing Balance Static Standing-Balance Support: Right upper extremity supported, Left upper extremity supported, With device Static Standing-Level of Assistance: Distant supervision Static Standing-Comment/Number of Minutes: no LOB, R foot wrapped to decrease drop foot Dynamic Standing Balance Dynamic Standing Balance Dynamic Standing-Balance Support: Unilateral upper extremity supported Dynamic Standing-Balance: Reaching for objects, Reaching across midline Dynamic Standing Balance-Level of Assistance: Contact guard Dynamic Standing-Comments: R drop foot wrapped General Assessments: Activity Tolerance Ambulation comments: 40 ft RW SBA Activity Tolerance Comments: pt amb 40 ft RW SBA Cognition Overall Cognitive Status: Impaired Arousal/Alertness: Delayed responses to stimuli Orientation Level: Oriented to person, Oriented to place Treatment: Therapeutic Exercise Therapeutic Exercise Activity 1: yellow tband 10 reps 4 variations Therapeutic Exercise Activity 2: Bilat LE AROM @ 10 reps of: hip abd/add, heels slide, SLR, quad set, hamstring set, gluteal set, PF/DF, marches, LAQ while positioned in supine & seated Therapeutic Exercise Activity 3: 10 reps standing AROM 4 way hip, eyes closed Therapeutic Exercise Activity 4: 10 reps of sit<->stand Therapeutic Activity Therapeutic Activity 1: sit<->stand Therapeutic Activity 2: static/dynamic stand Gait Training Gait Training Time Entry: 17 Gait Training Activity 1: 40 ft RW SBA Ambulation Ambulation: Yes Ambulation 1 Surface 1: Level tile Device 1: Rolling walker Assistance 1: Close supervision Quality of Gait 1: R foot wrapped, slow paced gait, decreased step length, decreased step height, no LOB Comments/Distance (ft) 1: 40 ft, 20 ft x2 Other Activity Other Activity 1: 2 laps each amb @ rail @ 24 ft per lap of: tandem walk forward/revers, lateral Treatment Comments: Pt in recliner, call light within pt reach, chair alarm activated Assessment/Plan PT Assessment 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 Plan PT Plan: Skilled PT PT Discharge Recommendations: Outpatient PT (with focus on balance) PT - Discharge Recommendations Placed: Yes Goals: Multi-Disciplinary Problems (from Physical Therapy) Active Problems Not on file Resolved Problems Problem: PT Misc Start Date: 09/19/24, Resolve Date: 09/21/24 Goal Start Date Expected End Date End Date Pt to ambulate 150' independently with use of rolling walker to improve ability to safely navigate home to safely navigating small spaces and ensure proper alignment before sitting. (RESOLVED) 09/19/24 10/03/24 09/21/24 Goal Start Date Expected End Date End Date Patient will perform bed mobility from flat bed independently without use of bed rails. (RESOLVED) 09/19/24 10/03/24 09/21/24 Goal Start Date Expected End Date End Date Maximize strength B hip and knee extensors, and BUE triceps and lats to facilitate return to independent bed mobility and for ease of transfers and gait. (RESOLVED) 09/19/24 10/03/24 09/21/24 Goal Start Date Expected End Date End Date Pt to progress seated and standing balance to allow return to prior level of functional activity, ADLs and tasks. (RESOLVED) 09/19/24 10/03/24 09/21/24 [facility] 09-20-2024 Note Patient: Saeed lanier Procedure Summary Date: 09/20/24 Room / Location: [facility] Main Operating Room Anesthesia Start: 742 Anesthesia Stop: 808 Procedure: EGD Diagnosis: Epigastric pain Scheduled Providers: Shelly Ricks MD; ROB Dumont; Dania Sandoval MD Responsible Provider: Shelly Ricks MD Anesthesia Type: MAC ASA Status: 3 Anesthesia Type: MAC Vitals Value Taken Time BP 127/62 09/20/24 0835 Temp 36.6 ???C (97.9 ???F) 09/20/24 0805 Pulse 63 09/20/24 0835 Resp 20 09/20/24 0835 SpO2 96 % 09/20/24 0835 Anesthesia Post Evaluation Patient location during evaluation: PACU Patient participation: complete - patient participated Level of consciousness: awake Pain management: adequate Airway patency: patent Cardiovascular status: acceptable Respiratory status: acceptable Hydration status: acceptable Patient is hemodynamically stable and is able to be discharged from PACU per anesthesia protocol. There were no known notable events for this encounter. [facility] 09-20-2024 Note Occupational Therapy Occupational Therapy Treatment Patient Name: Saeed Sarabia : 1940 Today's Date: 09/20/2024 09/20/24 0938 Time Calculation Start Time 0938 Stop Time 1005 Time Calculation (min) 27 min Problem List Patient Active Problem List Diagnosis Coronary arteriosclerosis Atrial fibrillation (CMS/HCC) Diastolic heart failure (CMS/HCC) Essential hypertension Hyperlipidemia Mitral valve regurgitation Type 2 diabetes mellitus without complication (CMS/HCC) Constipation Foot drop, right foot Right leg weakness Spinal stenosis Acute abdominal pain Acute metabolic encephalopathy Acute cholecystitis Cholelithiasis Treatment: 09/20/24937 OT Last Visit OT Received On 09/20/24 General Subjective Pt pleasant and cooperative, I have to go to the bathroom. Family/Caregiver Present Yes Pain Assessment Pain Assessment No/denies pain Cognition Overall Cognitive Status Impaired Orientation Level Oriented to time;Oriented to person;Disoriented to situation;Disoriented to person Safety Judgment Decreased awareness of need for assistance Deficits Not aware of deficits Memory Decreased recall of recent events;Decreased short term memory Cognition Comments Pt requires verbal cues for safety and sequencing General Assessment Hearing WFL Grooming Grooming Level of Assistance Contact guard Grooming Where Assessed Standing sinkside Grooming Comments CGA for safety during oral hygiene, facial hygiene UE Bathing UE Bathing Level of Assistance Contact guard UE Bathing Where Assessed Standing sinkside UE Bathing Comments CGA for hand washing pot toileting task LE Dressing LE Dressing Yes Sock Level of Assistance Minimum assistance LE Dressing Where Assessed Sitting in chair LE Dressing Comments Verbal cues for figure four technique for increased ease as pt demos forward lean to don hong socks, Min A to progress over hong heels Toileting Toileting Level of Assistance Moderate assistance Where Assessed Toilet Toileting Comments Mod A for thoroughness of hygiene and clothing managment post toileting Functional Standing Tolerance Time ~7 minutes standing sinkside Activity grooming Static Sitting Balance Static Sitting-Balance Support No upper extremity supported;Feet supported Static Sitting-Level of Assistance Distant supervision Dynamic Sitting Balance Dynamic Sitting-Balance Support No upper extremity supported;Feet supported Dynamic Sitting-Balance Forward lean;Reaching for objects;Reaching across midline;Trunk control activities Dynamic Sitting Balance-Level of Assistance Close supervision Static Standing Balance Static Standing-Balance Support Right upper extremity supported;Left upper extremity supported;With device Static Standing-Level of Assistance Close supervision Dynamic Standing Balance Dynamic Standing-Balance Support Right upper extremity supported;Left upper extremity supported;With device (w/ RW) Dynamic Standing-Balance Forward lean;Reaching for objects;Reaching across midline Dynamic Standing Balance-Level of Assistance Contact guard Dynamic Standing-Comments verbal cueing for sequencing Bed Mobility Bed Mobility Yes Bed Mobility 1 Bed Mobility From 1 Supine Bed Mobility Type 1 To Bed Mobility to 1 Short sit Level of Assistance 1 Close supervision Transfers Transfer Yes Transfer 1 Transfer From 1 Sit;Bed Transfer Type 1 To Transfer to 1 Stand;Toilet Technique 1 Sit to stand;Stand to sit Transfer Device 1 rolling walker Transfer Level of Assistance 1 Contact guard Transfers 2 Transfer From 2 Sit;Toilet Transfer Type 2 To Transfer to 2 Stand;Chair with arms Technique 2 Sit to stand;Stand to sit Transfer Device 2 rolling walker Transfer Level of Assistance 2 Contact guard Activity Tolerance Ambulation comments household distances Activity Tolerance Comments Pt limited by cognition Other Activity Other Activity 1 Pt left in bedside chair with call light and needs accessible. Other Activity 2 Chair alarm activited upon exit. 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 OT Education/Comments Safety awareness, re-orientation, LB dressing adaptive techniques Plan Level of assist 1 assist Treatment Interventions ADL retraining;Functional transfer training;Endurance training;Patient/family training;Neuromuscular reeducation;Compensatory technique education OT Plan Skilled OT OT Frequency 1 time per day until discharge & PRN OT Discharge Recommendations retirement facility placement OT - Discharge Recommendations Placed Yes Outcome Assessments 09/20/24 0938 AM-PAC 6 Clicks Putting on and taking off regular lower body clothing? 2 Bathing(Including washing,rinsing,drying)? 2 Toiletin (more content not included)... [facility] 09-20-2024 Note Gastroenterology Latrell n of Care Patient underwent EGD this morning for further assessment of abdominal pain. Findings and plan reviewed with patient and her who verbalized understanding and agreement with POC. Assessment Abdominal pain EGD on 09/20/2024 revealed mild LA grade A esophagitis, two small ulcers in the gastric body with overlying adherent clots (not actively bleeding). Gastritis was noted, along with two healing, clean-based ulcers in the gastric antrum. Multiple ulcers were observed in D2 and D3, some with clean bases and a few with overlying flat pigmented spots. Cholelithiasis with possible acute cholecystitis on CT scan CTAP showed findings suggestive of cholelithiasis with possible acute cholecystitis. LFTs are within normal limits. Lipase within normal limits. Abdominal exam unremarkable. General surgery on board. HIDA scan ordered. Plan PPI BID Follow up on H. Pylori stool antigen, gastrin level Repeat EGD in 8 weeks to assess for ulcer healing General surgery on board. Appreciate their recommendations. GI will respectfully sign off; however, we are readily available if additional questions or concerns arise. We will arrange for outpatient repeat EGD. [facility] 09-20-2024 Note Occupational Therapy Name: Saeed Sarabia Date of : 1940 Today's Date: 09/20/24 Pt is unable to be seen for therapy at this time secondary to patient off the floor at this time for EGD per RN . Will check back and complete therapy session as appropriate. Check No Charge Time attempted: 0840A [facility] 09-20-2024 Note Hospital Medicine Daily Progress Note - 09/20/2024 8:14 AM; Room: [address] [place] [address] Admission: 09/17/2024 7:02 PM; Length of stay: 3 days THE HOSPITALIST TEAM PREFERS TO USE [employer] CHAT FOR NON-URGENT COMMUNICATION 7AM-7PM. IF I DO NOT RESPOND WITHIN 20 MINUTES OR URGENT MATTERS, PLEASE CALL THROUGH THE GRAVITY METER OPERATOR. FROM 7PM-7AM, PLEASE PAGE [phone](COVR). Code Status: Full Code Barriers to Discharge: AMS Expected Discharge Date: 1-2 days Discharge Destination: TBD Overview Patient is seen for evaluation and management of abdominal pain and AMS. Subjective Patient seen and examined. she appears a little less confused today and in fact is oriented fully. Perform full sentences without garbled speech. No longer has suprapubic pain on palpation and is eating/drinking without difficulty or pain Physical Exam Visit Vitals BP (!) 97/40 Pulse 67 Temp 36.6 ???C (97.9 ???F) (Temporal) Resp 23 Intake/Output Summary (Last 24 hours) at 09/20/2024 0814 Last data filed at 09/20/2024 0803 Gross per 24 hour Intake 350 ml Output 0 ml Net 350 ml Estimated body mass index is 25.62 kg/m??? as calculated from the following: Height as of this encounter: 1.676 m (5' 6 ). Weight as of this encounter: 72 kg (158 lb 11.7 oz). Constitutional: NAD, AOx3 Eyes: EOMI, normal conjunctiva Mouth: Moist, no lesions CV: RRR, normal S1-S2, no murmurs Resp: CTA, no crackles or wheezing Abd: R sided hernia, suprapubic pain absent Extremities: No swelling, 2+ distal pulses Skin : Warm, dry Neuro: AOx3, no focal deficits Psych: Appropriate mood and affect Active Inpatient Problems Principal Problem: Acute cholecystitis Active Problems: Coronary arteriosclerosis Atrial fibrillation (CMS/HCC) Diastolic heart failure (CMS/HCC) Essential hypertension Hyperlipidemia Type 2 diabetes mellitus without complication (CMS/HCC) Foot drop, right foot Right leg weakness Acute abdominal pain Acute metabolic encephalopathy Cholelithiasis Assessment and Plan Suprapubic abdominal pain, resolved Metabolic encephalopathy, improved -Recent UTI but UA on admission unremarkable -CT unrevealing -No flank pain -Etiology unclear. Will give miralax and Bactrim as no other source for the pain is apparent -CT and MR head unremarkable beyond chronic ischemic changes -Will consult Neurology as I cannot ascertain etiology. Will keep overnight for possibility of EEG, and if not performed then will aim for discharge planning as she has improved since yesterday Gastric ulcers Esophagitis, LA grade A -EGD 09/20 -GI signed off; PPI BID, f/u gastrin, and outpatient follow up Cholelithiasis -OSH CT concerning for cholecystitis -HIDA negative for acute cholecystitis -GI and GS were consulted, no intervention warranted -Advance diet Afib -resume Eliquis HTN T2DM CHF -Resume home meds Nutrition Screen: Malnutrition Attestation: No dietitian assessment is available at this time. VTE Prophylaxis: Eliquis Scheduled Meds apixaban, 5 mg, oral, BID ezetimibe, 10 mg, oral, Once Daily insulin lispro, 0-10 Units, subcutaneous, TID with meals And insulin lispro, 0-8 Units, subcutaneous, Nightly lisinopril, 20 mg, oral, Daily metoprolol succinate XL, 100 mg, oral, q AM polyethylene glycol, 17 g, oral, Daily rosuvastatin, 5 mg, oral, Nightly spironolactone, 12.5 mg, oral, Daily sulfamethoxazole-trimethoprim, 160 mg of trimethoprim, oral, q12h lactated Ringer's, 30 mL/hr Pertinent Investigations Hematology: Results from last 7 days Lab Units 09/20/24 0603 09/19/24 0525 WBC AUTO 10*3/uL 7.70 10.39 HEMOGLOBIN g/dL 12.7 13.4 HEMATOCRIT % 39.7 41.3 MCV fL 93.6 93.0 PLATELETS AUTO 10*3/uL 286 333 Chemistry: Results from last 7 days Lab Units 09/20/24 0604 09/19/24 0525 09/18/24 0720 09/17/24 1946 SODIUM mmol/L 138 137 138 136 POTASSIUM mmol/L 4.1 4.0 4.0 4.2 CHLORIDE mmol/L 104 102 102 102 CO2 mmol/L 27 25 27 24 BUN mg/dL 12 12 17 16 CREATININE mg/dL 0.86 0.79 0.72 0.68 GLUCOSE mg/dL 115* 147* 112* 128* MAGNESIUM mg/dL -- 1.7* -- 1.5* CALCIUM mg/dL 9.0 9.4 9.0 9.2 PHOSPHORUS mg/dL -- -- -- 3.3 Results from last 7 days Lab Units 09/20/24 0604 09/19/24 0829 09/19/24 0525 09/17/24 1946 AMMONIA umol/L -- 25 -- -- AST U/L 22 -- 18 15 ALT U/L 12 -- 11 11 ALK PHOS U/L 44 -- 49 43 BILIRUBIN TOTAL mg/dL 0.5 -- 0.5 0.5 LIPASE U/L -- -- -- 27 Results from last 7 days Lab Units 09/19/24 21009/19/24 1728 09/19/24 1215 09/19/24 0742 09/18/24202809/18/24 1803 POCT GLUCOSE mg/dL 140* 146* 198* 151* 154* 211* Historical Values: (Includes values prior to this admission) Lab Results Component Value Date TSH 0.04 (L) 09/18/2024 FREET4 1.38 09/18/2024 No results found for: [id number] , IRON , TIBC , C3 , C4 , AUTUMN , CANCA , ASO , PSA , CEA , CA125 , CA199 , AFP , CA153 Imaging EGD Table formatting fr (more content not included)... [facility] 09-20-2024 Note Patient: Saeed lanier Procedure Information Date/Time: 09/20/24 0800 Scheduled providers: Shelly Ricks MD; ROB Dumont; Dania Sandoval MD Procedure: EGD Location: [facility] Main Operating Room Relevant Problems Cardio (+) Atrial fibrillation (CMS/HCC) (+) Coronary arteriosclerosis (+) Essential hypertension (+) Mitral valve regurgitation Endo (+) Type 2 diabetes mellitus without complication (CMS/HCC) Clinical information reviewed: Tobacco Allergies Meds Problems Med Hx Surg Hx Fam Hx Soc Hx Physical Exam Airway Mallampati: III TM distance: >3 FB Neck ROM: full Cardiovascular Rhythm: irregular Rate: normal Dental - normal exam Pulmonary Breath sounds clear to auscultation Abdominal Anesthesia Plan ASA 3 MAC (Poor historian) The patient is not a current smoker. Education provided regarding risk of obstructive sleep apnea. intravenous induction Anesthetic plan and risks discussed with patient. Plan discussed with ROB. Additional Equipment Requests [facility] 09-19-2024 Note Patient and family a re declining home healthcare and SNF. No discharge needs at this time. [facility] 09-19-2024 Note Attestation signed by Nitin Carroll MD at 09/20/2024 10:55 PM I personally saw and examined the patient on the same date of service as resident Dr Rodríguez . I reviewed and edited the note that was written by the resident. All entries reflect an accurate accounting of the evaluation and care rendered by me. As the teaching physician, I have personally performed or re-performed the history of present illness, physical exam and medical decision making activities of the encounter and verified the resident's documentation. I made pertinent changes as necessary to ensure accurate documentation. [facility] General Surgery DAILY PROGRESS NOTE Subjective Saeed Sarabia is an 83 year old female consulted by general surgery at bedside for lower abdominal pain. According to patient she's been struggling to eat, was not specific if the cause of this was the abdominal pain or low appetite. Her mentioned she had some soup yesterday, but nothing so far today. Ms. Sarabia denies constitutional symptoms (fever, chills, unintended weight loss), nausea, vomiting. She was unable to have a bowel movement this morning. Objective Vitals: Vitals: 09/19/24 0742 BP: 136/77 Pulse: 86 Resp: 16 Temp: 36.6 ???C (97.9 ???F) SpO2: 95% I/O last 3 completed shifts: In: 350 (4.8 mL/kg) [I.V.:200 (2.7 mL/kg); IV Piggyback:150] Out: - (0 mL/kg) Weight: 73.5 kg No intake/output data recorded. Physical Exam Physical Exam HENT: Head: Normocephalic and atraumatic. Eyes: General: No scleral icterus. Extraocular Movements: Extraocular movements intact. Cardiovascular: Rate and Rhythm: Normal rate and regular rhythm. Pulmonary: Effort: Pulmonary effort is normal. No respiratory distress. Abdominal: General: There is no distension. Tenderness: There is abdominal tenderness. There is no guarding or rebound. Comments: Spear sign negative Musculoskeletal: Right lower leg: No edema. Left lower leg: No edema. Skin: Coloration: Skin is not jaundiced. Findings: No lesion or rash. Neurological: Mental Status: She is alert and oriented to person, place, and time. Labs: Results from last 7 days Lab Units 09/19/24 0525 09/18/24 0720 09/17/247 WBC AUTO 10*3/uL 10.39 6.54 7.10 HEMOGLOBIN g/dL 13.4 12.3 12.9 HEMATOCRIT % 41.3 39.1 39.0 PLATELETS AUTO 10*3/uL 333 284 301 Results from last 7 days Lab Units 09/19/24 0525 09/18/24 0720 09/17/24 1946 SODIUM mmol/L 137 138 136 POTASSIUM mmol/L 4.0 4.0 4.2 CO2 mmol/L 25 27 24 BUN mg/dL 12 17 16 CREATININE mg/dL 0.79 0.72 0.68 Medications: apixaban, 5 mg, oral, BID ezetimibe, 10 mg, oral, Once Daily insulin lispro, 0-10 Units, subcutaneous, TID with meals And insulin lispro, 0-8 Units, subcutaneous, Nightly lisinopril, 20 mg, oral, Daily magnesium sulfate, 1 g, intravenous, q1h metoprolol succinate XL, 100 mg, oral, q AM polyethylene glycol, 17 g, oral, Daily rosuvastatin, 5 mg, oral, Nightly spironolactone, 12.5 mg, oral, Daily sulfamethoxazole-trimethoprim, 160 mg of trimethoprim, oral, q12h technetium Tc-99m mebrofenin, 8.1 millicurie, intravenous, Once in imaging Imaging: CAT Eng Wo Pharm Narrative: [facility] ENG CLINICAL HISTORY: 83-year-old with concern for cholecystitis. Cholelithiasis reported on prior imaging. COMPARISON: None. TECHNIQUE: Following the uneventful intravenous administration of 8.1 mCi Tc-99m mebrofenin, dynamic images of the right upper quadrant were acquired in the anterior projection for 60 seconds per frame for 1 hour. COMMENTS: There is brisk tracer uptake by the liver, Radioactive bile could be seen entering the bowel in the first 60 minutes. The gallbladder was visualized. Impression: 1. No evidence of acute cholecystitis. Electronically signed: Felicita Leal. Assessment/Plan Saeed Sarabia is a 83 y.o. female with pertinent medical history of type 2 diabetes, hypertension, coronary artery disease, atrial fibrillation and congestive heart failure. Admitted on 09/17 for abdominal pain & altered mental status. Consulted by general surgery for abdominal pain today. No surgical intervention needed at this time. HIDA scan followed-up- no evidence of acute cholecystitis GI also consulted- no indication for endoscopic retrograde cholangiopancreatography Okay for trial of diet. Low fat diet. Written by Tunde Grigsby for educational purposes Ryan Rodríguez MD PGY-3 Surgery Resident [facility] 09-19-2024 Note Attestation signed by Cara Vogt PT at 09/19/2024 3:25 PM This senior mortgage underwriter present and provided 1:1 supervision, direction of patient care and assistance with development of plan of care. Cara Vogt PT, MPT Physical Therapy Evaluation Patient Name: Saeed Sarabia Today's Date: 09/19/2024 Admit Date: 09/17/2024 09/19/24 1210 PT Last Visit PT Received On 09/19/24 Plan Level of assist 1 assist PT Plan Skilled PT PT Frequency 5 times per week until discharge & PRN PT Discharge Recommendations retirement facility placement PT - Discharge Recommendations Placed Yes History of present illness Patient is a 83 y.o. female presenting from [facility] with c/o abdominal pain and AMS x4 days. Per facility report, [facility] did not have a surgery bed available, so pt will be getting surgery at [facility]. Pt was diagnosed with cholelithiasis and finished antibiotics at facility. Upon arrival to ER, pt is A&Ox2 - alert to self and time only. Past Medical History DM, HLD, HTN, gallstones, a-fib, HF, CAD, back sx, foot drop (wears AFO) Current Diagnoses Acute cholecystitis/nephrolithiasis Cognition altered from baseline, brain MRI scheduled this afternoon PRIOR LEVEL OF FUNCTION obtained per patient and patient's Vision: glasses Hearing: WNL Mobility: uses rolling walker for household distances. , uses rolling walker for community distances. ADLs: independent with grooming, bathing, and dressing IADLs/household management: assist with cooking, laundry, and cleaning; helps Transportation: relies on family for transportation Occupation: retired Social support spouse / significant other Home Set-Up: Patient lives with spouse in a 1 story home with a ramp to enter Bedroom location: main level Bathroom location: main level Additional DME/adaptive equipment: Rolling walker, Rollator, and Straight cane Pt left up in bedside chair, call light w/in reach, RN aware OBJECTIVE ASSESSMENT/PHYSICAL EXAM Cognition Alert, Disoriented, and Cooperative Overall Cognitive Status: Impaired Arousal/Alertness: Generalized responses to stimuli Orientation Level: Oriented to time, Oriented to person, Disoriented to place, and Disoriented to situation Following Commands: Follows one-step commands with increased difficulty Safety Judgment: Decreased awareness of safety and Decreased awareness of need for assistance Awareness of Errors: Decreased awareness of errors made, Assistance required to identify errors made, and Assistance required to correct errors made Attention Span: Appears intact Memory: Appears intact Problem Solving: Assistance required to identify errors made, Assistance required to generate solutions, and Assistance required to implement solutions Communication: Intact Pain: No complaint of pain Edema/Skin Appearance: Erythremia in R LE Coordination/Tone: Impaired; demonstrated R foot drop Precautions IV, telemetry, fall risk Objective assessment Bed mobility Not performed Upon arrival, pt was sitting in bedside chair Transfers Sit to stand: contact guard assist and Stand to sit: contact guard assist From chair and toilet Gait Patient ambulates 100 feet, with Rolling walker, and minimal assist Demonstrated R foot drop and walked on lateral side of left foot Compensated steppage gait Needed assistance with walker management Pt veered to left and need guidance to not run into items in the hallway Demonstrated wide turns Assistance in bathroom to guide turn and align with toilet Stairs N/T Endurance Able to manage household distances Vitals Stable/unchanged significantly Balance Sitting: patient able to sit independently with both feet on ground, without upper extremity assist. Standing: patient able to stand and reach within base of support Forward without loss of balance with contact guard assist assistance Pt reached forward to open bathroom door and wash hands in sink Posture WNL ROM UE ROM: WNL LE ROM: WNL Strength UE strength: Impaired; HONG shoulder flexion 3+/5 LE strength: Impaired; HONG hip flexion 4-/5, R DF 2/5 Core strength: WNL Education Verbal, Demonstration, Feedback during session, Functional mobility, and Safety Mobility 6-Click T-Score: 09/19/24 1213 6 Clicks (Mobility) Help from another person turning from your back to your side while in a flat bed without using bedrails 3 Help from another person moving from lying on your back to sitting on the side of a flat bed without using bedrails 3 Help from another person moving to and from a bed to a chair (including a wheelchair) 3 Help from another person standing up from a chair using your arms (e.g. wheelchair or bedside chair) 3 Help fro (more content not included)... [facility] 09-19-2024 Note [facility] Medicine Daily Progress Note - 09/19/2024 8:17 AM; Room: [address] [place] [address] Admission: 09/17/2024 7:02 PM; Length of stay: 2 days THE HOSPITALIST TEAM PREFERS TO USE [employer] CHAT FOR NON-URGENT COMMUNICATION 7AM-7PM. IF I DO NOT RESPOND WITHIN 20 MINUTES OR URGENT MATTERS, PLEASE CALL THROUGH THE GRAVITY METER OPERATOR. FROM 7PM-7AM, PLEASE PAGE [phone](COVR). Code Status: Full Code Barriers to Discharge: AMS Expected Discharge Date: 1-2 days Discharge Destination: TBD Overview Patient is seen for evaluation and management of abdominal pain and AMS. Subjective Patient seen and examined. Patient still disoriented without clear etiology Physical Exam Visit Vitals BP 136/77 Pulse 86 Temp 36.6 ???C (97.9 ???F) Resp 16 No intake or output data in the 24 hours ending 09/19/24 0817 Estimated body mass index is 26.15 kg/m??? as calculated from the following: Height as of this encounter: 1.676 m (5' 6 ). Weight as of this encounter: 73.5 kg (162 lb 0.6 oz). Constitutional: NAD, AOx2 Eyes: EOMI, normal conjunctiva Mouth: Moist, no lesions CV: RRR, normal S1-S2, no murmurs Resp: CTA, no crackles or wheezing Abd: R sided hernia, suprapubic pain Extremities: No swelling, 2+ distal pulses Skin : Warm, dry Neuro: AOx2, no focal deficits Psych: Appropriate mood and affect Active Inpatient Problems Principal Problem: Acute cholecystitis Active Problems: Coronary arteriosclerosis Atrial fibrillation (CMS/HCC) Diastolic heart failure (CMS/HCC) Essential hypertension Hyperlipidemia Type 2 diabetes mellitus without complication (CMS/HCC) Foot drop, right foot Right leg weakness Acute abdominal pain Acute metabolic encephalopathy Cholelithiasis Assessment and Plan Suprapubic abdominal pain Metabolic encephalopathy -Recent UTI but UA on admission unremarkable -CT unrevealing -No flank pain -Etiology unclear. Will give miralax and Bactrim as no other source for the pain is apparent -CT head unremarkable, will obtain MR -May require Neuro consult based on results from MRI -NPO midnight for EGD tomorrow Cholelithiasis -OSH CT concerning for cholecystitis -HIDA negative for acute cholecystitis -GI and GS were consulted, no intervention warranted -Advance diet Afib -resume Eliquis HTN T2DM CHF -Resume home meds Nutrition Screen: Malnutrition Attestation: No dietitian assessment is available at this time. VTE Prophylaxis: Eliquis Scheduled Meds apixaban, 5 mg, oral, BID ezetimibe, 10 mg, oral, Once Daily insulin lispro, 0-10 Units, subcutaneous, TID with meals And insulin lispro, 0-8 Units, subcutaneous, Nightly lisinopril, 20 mg, oral, Daily metoprolol succinate XL, 100 mg, oral, q AM polyethylene glycol, 17 g, oral, Daily rosuvastatin, 5 mg, oral, Nightly spironolactone, 12.5 mg, oral, Daily sulfamethoxazole-trimethoprim, 160 mg of trimethoprim, oral, q12h technetium Tc-99m mebrofenin, 8.1 millicurie, intravenous, Once in imaging Pertinent Investigations Hematology: Results from last 7 days Lab Units 09/19/24 0525 09/18/24 0720 WBC AUTO 10*3/uL 10.39 6.54 HEMOGLOBIN g/dL 13.4 12.3 HEMATOCRIT % 41.3 39.1 MCV fL 93.0 96.8 PLATELETS AUTO 10*3/uL 333 284 Chemistry: Results from last 7 days Lab Units 09/19/24 0525 09/18/24 0720 09/17/24 1946 SODIUM mmol/L 137 138 136 POTASSIUM mmol/L 4.0 4.0 4.2 CHLORIDE mmol/L 102 102 102 CO2 mmol/L 25 27 24 BUN mg/dL 12 17 16 CREATININE mg/dL 0.79 0.72 0.68 GLUCOSE mg/dL 147* 112* 128* MAGNESIUM mg/dL 1.7* -- 1.5* CALCIUM mg/dL 9.4 9.0 9.2 PHOSPHORUS mg/dL -- -- 3.3 Results from last 7 days Lab Units 09/19/24 0525 09/17/24 1946 AST U/L 18 15 ALT U/L 11 11 ALK PHOS U/L 49 43 BILIRUBIN TOTAL mg/dL 0.5 0.5 LIPASE U/L -- 27 Results from last 7 days Lab Units 09/19/24 0742 09/18/24202809/18/24 1803 09/18/24 1155 09/18/24 0752 09/17/24 2246 POCT GLUCOSE mg/dL 151* 154* 211* 170* 125* 129* Historical Values: (Includes values prior to this admission) Lab Results Component Value Date TSH 0.04 (L) 09/18/2024 FREET4 1.38 09/18/2024 No results found for: [id number] , IRON , TIBC , C3 , C4 , AUTUMN , CANCA , ASO , PSA , CEA , CA125 , CA199 , AFP , CA153 Imaging [facility] Narrative: [facility] CLINICAL HISTORY: 83-year-old with concern for cholecystitis. Cholelithiasis reported on prior imaging. COMPARISON: None. TECHNIQUE: Following the uneventful intravenous administration of 8.1 mCi Tc-99m mebrofenin, dynamic images of the right upper quadrant were acquired in the anterior projection for 60 seconds per frame for 1 hour. COMMENTS: There is brisk tracer uptake by the liver, Radioactive bile could be seen entering the bowel in the first 60 minutes. The gallbladder was visualized. Impression: 1. No evidence of acute cholecystitis. Electronically signed: Felicita Leal. Discharge Planning Expecte (more content not included)... [facility] 09-19-2024 Note Daily Case Managemen t Update Barriers to Discharge et per Progress Note/s: PT ordered et pt refused. OT recs Home w 24 vs HHC vs SNF. HIDA Scan completed = demonstrated visualization of the gallbladder / no acute surgical intervention. GI following. Remains NPO. MR Brain ordered for AMS w/ Normal CT; pending. SW Consulted; pending. From Home. Diet: Dietary Orders (From admission, onward) Start Ordered 09/19/24 0001 Diet NPO Diet effective midnight Comments: Sips with medications Question: Reason for NPO: Answer: Operation/Procedure 09/18/241655 Physician Expected Discharge Date: 09/19/2024 Discharge Delays: PT Six Click Score: 13 OT Six Click Score: 17 PT Recommendations: OT Recommendations: retirement facility placement (vs return home with 24 hour supervision and Home OT) New Consults: Consult Orders (From admission, onward) Start Ordered 09/17/242218 Inpatient consult to General Surgery Once Specialty: General Surgery Provider: (Not yet assigned) Question Answer Comment Consulting Group GENERAL SURGERY TEAM Reason for Consult? Cholelithiasis with with cholecystitis Level of Consultation Consultation and Management 09/17/24221709/17/242130 Inpatient consult to Hospitalist Once Specialty: Internal Medicine Provider: (Not yet assigned) Question Answer Comment Consulting Group HOSPITALIST (ADMIT/FLOAT) Reason for Consult? confusion, cholecystitis Level of Consultation Consultation and Management 09/17/242130 Ancillary Consults (From admission, onward) Start Ordered 09/19/24811 Inpatient consult to Social Work Once Provider: (Not yet assigned) Question Answer Comment Is discharge planning needed? If yes, who is requesting discharge planning? Other (Comment) Care Coordination Select all services needed for the patient Other Other: PT ordered et pt refused. OT recs Home w 24 vs HHC vs SNF. Please follow for discharge planning. 09/19/2481109/17/242213 Inpatient Consult to Social Work Once Provider: (Not yet assigned) Question Answer Comment Select all services needed for the patient Other Other: Facilitate discharge plans 09/17/242216 Therapy Orders (From admission, onward) Start Ordered 09/17/242213 PT eval and treat Until therapy completed Question: Reason for PT? Answer: Evaluate and treat 09/17/24221609/17/242213 OT eval and treat Until therapy completed Question: Reason for OT? Answer: Evaluate and treat 09/17/242216 [facility] 09-19-2024 Note Attestation signed by Nitin Carroll MD at 09/20/2024 10:37 PM I personally saw and examined the patient on the same date of service as resident Dr Tatum . I reviewed and edited the note that was written by the resident. All entries reflect an accurate accounting of the evaluation and care rendered by me. As the teaching physician, I have personally performed or re-performed the history of present illness, physical exam and medical decision making activities of the encounter and verified the resident's documentation. I made pertinent changes as necessary to ensure accurate documentation. [facility] General Surgery DAILY PROGRESS NOTE Subjective No acute events overnight. Patient reports lower abdominal pain. Denies any RUQ pain. She reports she did not eat much yesterday due to nausea. Denies any nausea or emesis overnight. Denies any fevers or chills. She tried to have a bowel movement this morning but was unsuccessful. Objective Vitals: Vitals: 09/19/24 0332 BP: 132/67 Pulse: 89 Resp: 18 Temp: 36.7 ???C (98.1 ???F) SpO2: 95% I/O last 3 completed shifts: In: 350 (4.8 mL/kg) [I.V.:200 (2.7 mL/kg); IV Piggyback:150] Out: - (0 mL/kg) Weight: 73.5 kg No intake/output data recorded. Physical Exam General Appearance: AAOx3, NAD Neck: trachea midline Pulmonary: good respiratory effort on RA, no audible wheezing, no accessory muscle use Cardiac: RRR Abdomen: Mild suprapubic tenderness, soft, non-distended, no guarding, no rebound tenderness Extremity: no edema bilateral upper and lower extremities Skin: warm and dry without rash Eyes: no scleral icterus Labs: Results from last 7 days Lab Units 09/18/24 0720 09/17/24 1947 WBC AUTO 10*3/uL 6.54 7.10 HEMOGLOBIN g/dL 12.3 12.9 HEMATOCRIT % 39.1 39.0 PLATELETS AUTO 10*3/uL 284 301 Results from last 7 days Lab Units 09/18/24 0720 09/17/24 194 SODIUM mmol/L 138 136 POTASSIUM mmol/L 4.0 4.2 CO2 mmol/L 27 24 BUN mg/dL 17 16 CREATININE mg/dL 0.72 0.68 Medications: apixaban, 5 mg, oral, BID ezetimibe, 10 mg, oral, Once Daily insulin lispro, 0-10 Units, subcutaneous, TID with meals And insulin lispro, 0-8 Units, subcutaneous, Nightly lisinopril, 20 mg, oral, Daily metoprolol succinate XL, 100 mg, oral, q AM polyethylene glycol, 17 g, oral, Daily rosuvastatin, 5 mg, oral, Nightly spironolactone, 12.5 mg, oral, Daily sulfamethoxazole-trimethoprim, 160 mg of trimethoprim, oral, q12h technetium Tc-99m mebrofenin, 8.1 millicurie, intravenous, Once in imaging Imaging: [facility] Narrative: [facility] CLINICAL HISTORY: 83-year-old with concern for cholecystitis. Cholelithiasis reported on prior imaging. COMPARISON: None. TECHNIQUE: Following the uneventful intravenous administration of 8.1 mCi Tc-99m mebrofenin, dynamic images of the right upper quadrant were acquired in the anterior projection for 60 seconds per frame for 1 hour. COMMENTS: There is brisk tracer uptake by the liver, Radioactive bile could be seen entering the bowel in the first 60 minutes. The gallbladder was visualized. Impression: 1. No evidence of acute cholecystitis. Electronically signed: Felicita Leal. Assessment/Plan Saeed Sarabia is a 83 y.o. female with PMH of T2D, HTN, CAD, Afib on Eliquis, and CHF who presented with worsening confusion and abdominal pain. CT AP at OSH showed cholelithiasis and concern for cholecystitis. CBC unremarkable, normal lipase and LFTs. HIDA scan demonstrated visualization of the gallbladder. No acute surgical intervention indicated at this time. No concerns for acute cholecystitis. OK for low fat diet from surgical standpoint GI following peripherally. No indication for ERCP Remainder of care per primary and consulting teams No further surgical plans indicated at this time. General Surgery will sign off. Please contact General Surgery for any questions or concerns requiring surgical input. Salvador Alcazar MD General Surgery Resident, PGY-2 [facility] 09-18-2024 Note Physical Therapy Can cellation Patient unable to be seen for therapy due to: [] Cancel by RN or physician due to: [] Hemodialysis [] Critical Lab Value Level [] Blood transfusion in progress [] Acute or unstable cardiovascular status _MAP < 55 or more than >115 _HR < 40 or > 130 [] Acute or unstable pulmonary status -FiO2 > 60% _RR < 5 or >40 _O2 sats < 85% [] Strict Bedrest [] Off Unit - procedure [] Off Unit for testing [] Pending imaging to R/O fracture [x] Refusal by Patient Patient reports nausea. Recently had Zofran and pain medication and would like to rest. Ornamental Brick Installer relayed to RN, family's concern that patient is NPO and has not had IV hydration during stay. RN reports MD is to talk w/ family. [] Other [] PT being discontinued at this time. Patient independent. No further needs. [] PT being discontinued at this time as the patient has been transferred to hospice care. No further needs. Will follow and initiate session Cara Vogt PT, [facility] Acute Rehabilitation [facility] 09-18-2024 Note Hospital Medicine Daily Progress Note - 09/18/2024 8:44 AM; Room: [address] [place] [address] Admission: 09/17/2024 7:02 PM; Length of stay: 1 days THE HOSPITALIST TEAM PREFERS TO USE EPIC CHAT FOR NON-URGENT COMMUNICATION 7AM-7PM. IF I DO NOT RESPOND WITHIN 20 MINUTES OR URGENT MATTERS, PLEASE CALL THROUGH THE GRAVITY METER OPERATOR. FROM 7PM-7AM, PLEASE PAGE [phone](COVR). Code Status: Full Code Barriers to Discharge: AMS Expected Discharge Date: 1-2 days Discharge Destination: TBD Overview Patient is seen for evaluation and management of abdominal pain and AMS. Subjective Patient seen and examined. Family at bedside and disgruntled. They are upset for several reasons including no surgery, unable to explain pain or AMS. Feels that we are doing nothing. Patient herself is having NICOLE, abdominal pain, and periodic nausea Physical Exam Visit Vitals BP 135/69 Pulse 82 Temp 36.6 ???C (97.9 ???F) Resp 16 Intake/Output Summary (Last 24 hours) at 09/18/2024 0844 Last data filed at 09/18/2024 0125 Gross per 24 hour Intake 350 ml Output -- Net 350 ml Estimated body mass index is 26.01 kg/m??? as calculated from the following: Height as of this encounter: 1.676 m (5' 6 ). Weight as of this encounter: 73.1 kg (161 lb 2.5 oz). Constitutional: NAD, AOx2 Eyes: EOMI, normal conjunctiva Mouth: Moist, no lesions CV: RRR, normal S1-S2, no murmurs Resp: CTA, no crackles or wheezing Abd: R sided hernia, suprapubic pain Extremities: No swelling, 2+ distal pulses Skin : Warm, dry Neuro: AOx2, no focal deficits Psych: Appropriate mood and affect Active Inpatient Problems Principal Problem: Acute cholecystitis Active Problems: Coronary arteriosclerosis Atrial fibrillation (CMS/HCC) Diastolic heart failure (CMS/HCC) Essential hypertension Hyperlipidemia Type 2 diabetes mellitus without complication (CMS/HCC) Foot drop, right foot Right leg weakness Acute abdominal pain Acute metabolic encephalopathy Cholelithiasis Assessment and Plan Suprapubic abdominal pain Metabolic encephalopathy -Recent UTI but UA on admission unremarkable -CT unrevealing -No flank pain -Etiology unclear. Will give miralax and Bactrim as no other source for the pain is apparent -CT head unremarkable, will obtain MR -Check TSH Cholelithiasis -OSH CT concerning for cholecystitis -HIDA negative for acute cholecystitis -GI and GS were consulted, no intervention warranted -Advance diet Afib -resume Eliquis HTN T2DM CHF -Resume home meds Nutrition Screen: Malnutrition Attestation: No dietitian assessment is available at this time. VTE Prophylaxis: Eliquis Scheduled Meds cefTRIAXone, 2 g, intravenous, q24h insulin lispro, 0-10 Units, subcutaneous, TID with meals And insulin lispro, 0-8 Units, subcutaneous, Nightly metroNIDAZOLE, 500 mg, intravenous, q12h Pertinent Investigations Hematology: Results from last 7 days Lab Units 09/18/24 0720 09/17/24 1947 WBC AUTO 10*3/uL 6.54 7.10 HEMOGLOBIN g/dL 12.3 12.9 HEMATOCRIT % 39.1 39.0 MCV fL 96.8 91.3 PLATELETS AUTO 10*3/uL 284 301 Chemistry: Results from last 7 days Lab Units 09/17/24 1946 SODIUM mmol/L 136 POTASSIUM mmol/L 4.2 CHLORIDE mmol/L 102 CO2 mmol/L 24 BUN mg/dL 16 CREATININE mg/dL 0.68 GLUCOSE mg/dL 128* MAGNESIUM mg/dL 1.5* CALCIUM mg/dL 9.2 PHOSPHORUS mg/dL 3.3 Results from last 7 days Lab Units 09/17/24 1946 AST U/L 15 ALT U/L 11 ALK PHOS U/L 43 BILIRUBIN TOTAL mg/dL 0.5 LIPASE U/L 27 Results from last 7 days Lab Units 09/18/24 0752 09/17/24 2246 POCT GLUCOSE mg/dL 125* 129* Historical Values: (Includes values prior to this admission) No results found for: PREALBUMIN , TSH , T3FREE , FREET4 , CORTISOL , FEV1 , UEM3GOZ , DLCO , RVSP , HDL , LDL No results found for: [id number] , IRON , TIBC , C3 , C4 , AUTUMN , CANCA , ASO , PSA , CEA , CA125 , CA199 , AFP , CA153 Imaging CT transfer of outside films This order has been auto-finalized and does not contain a result. Discharge Planning Expected Discharge Disposition: Home or Self Care () (pending PT/OT) OT Discharge Recommendations: retirement facility placement (vs return home with 24 hour supervision and Home OT) Signed Kayleigh Rivera MD [facility] Medicine 09/18/2024 8:44 AM [facility] 09-18-2024 Note Occupational Therapy Occupational Therapy Evaluation Patient Name: Saeed Sarabia : 1940 Today's Date: 09/18/2024 Discharge Recommendation: SNF vs Home with 24 hour supervision and Home OT 83 y/o F admitted with cholelithiasis, cholecystitis, and confusion. Initiated session with pt supine in bed. Pt supine to sit, sit to stand with rw, functional mobility to BSC, stand to sit, seated toileting, to window, back to BSC, to sink, hand hygiene, to chair, stand to sit, doffed/donned socks, and tolerated ROM and MMT. Concluded session with pt seated in chair with chair alarm armed, Nuc Med staff present, and call light in reach. RN approved pt for OOB activity this date and pt agreeable. Time In: 0755 Time Out: 0822 General Subjective: Pt pleasant, cooperative, confused, questionable historian Family/Caregiver Present: No Patient Active Problem List Diagnosis Coronary arteriosclerosis Atrial fibrillation (CMS/HCC) Diastolic heart failure (CMS/HCC) Essential hypertension Hyperlipidemia Mitral valve regurgitation Type 2 diabetes mellitus without complication (CMS/HCC) Constipation Foot drop, right foot Right leg weakness Spinal stenosis Acute abdominal pain Acute metabolic encephalopathy Acute cholecystitis Cholelithiasis Past Medical History: Diagnosis Date Atrial fibrillation (CMS/HCC) CHF (congestive heart failure) (CMS/HCC) Coronary artery disease Diabetes mellitus (CMS/HCC) Heart valve disease Hyperlipidemia Hypertension Past Surgical History: Procedure Laterality Date BACK SURGERY CARDIAC CATHETERIZATION CARDIOVERSION Precautions Precautions Medical Precautions: bed alarm, chair alarm, fall risk, telemetry Pain Pain Assessment Pain Assessment: No/denies pain Cognition Cognition Overall Cognitive Status: Impaired Arousal/Alertness: Delayed responses to stimuli Orientation Level: Oriented to person, Disoriented to place, Disoriented to time, Disoriented to situation Safety Judgment: Decreased awareness of need for assistance Awareness of Errors: Assistance required to identify errors made, Decreased awareness of errors Deficits: Not aware of deficits Attention Span: Attends with cues to redirect Memory: Decreased recall of recent events, Decreased short term memory Problem Solving: Assistance required to identify errors made, Assistance required to generate solutions General Assessment General Assessment Hearing: WFL Home Living Home Living Type of Home: House Lives With: Spouse Home Adaptive Equipment: Walker rolling, Cane, Rollator Home Layout: One level Home Access: Stairs to enter with rails Entrance Stairs-Number of Steps: 3 Bathroom Shower/Tub: Tub/shower unit, Walk-in shower Bathroom Toilet: Handicapped height Bathroom Equipment: Grab bars in shower, Grab bars around toilet, Built-in shower seat, Hand-held shower, Bedside commode Prior Level of Function Prior Function Level of Bearden: Independent with ADLs and functional transfers, Independent with homemaking with ambulation (family drives) Prior Functional Mobility: Independent with rolling walker, Independent with rollator Receives Help From: Family Prior IADLs Static Sitting Balance Static Sitting Balance Static Sitting-Balance Support: Feet supported Static Sitting-Level of Assistance: Distant supervision Dynamic Sitting Balance Dynamic Sitting Balance Dynamic Sitting-Balance Support: Feet supported Dynamic Sitting-Balance: Forward lean, Reaching for objects Dynamic Sitting Balance-Level of Assistance: Close supervision Static Standing Balance Static Standing Balance Static Standing-Balance Support: Right upper extremity supported, Left upper extremity supported, With device Static Standing-Level of Assistance: Close supervision Dynamic Standing Balance Dynamic Standing Balance Dynamic Standing-Balance Support: Right upper extremity supported, Left upper extremity supported, With device Dynamic Standing Balance-Level of Assistance: Close supervision ADL ADL Eating Assistance: Independent Grooming Assistance: Stand by Grooming Deficit: Wash/dry hands Bathing Assistance: Moderate UE Dressing Assistance: Stand by UE Dressing Deficit: (managing gown) LE Dressing Assistance: Moderate LE Dressing Deficit: Don/doff R sock, Don/doff L sock (dodoffed/donned socks seated SBA, concern for further LB dressing d/t cognition/balance/activity tolerance) Toileting Assistance with Device: Minimal Toileting Deficit: Bedside commode (seated urination with A for brief lowering and re-donning) Bed Mobility Bed Mobility Bed Mobility: Yes Bed Mobility 1 Bed Mobility From 1: Supine Bed Mobility Type 1: To Bed Mobility to 1: Short sit Level of Assistance 1: Close supervision Transfers Transfers Transfer: Yes Transfer 1 Transfer From 1: Bed Transfer Type 1: To Transf (more content not included)... [facility] 09-18-2024 Note Physical Therapy Evaluation--Cancellation Patient Name: Saeed Sarabia Today's Date: 09/18/2024 Admit Date: 09/17/2024 Patient admitted w/ abdominal pain. CT scan at OSH indicated possible cholelithiasis. Patient transferred for surgical consult. Patient is currently NPO. Ornamental Brick Installer anticipates patient to have change in mobility status if surgery is performed. Will await surgery consult and evaluate when appropriate. History of present illness Patient is a 83 y.o. female presents from [facility] w/ c/o abdominal pain and AMS x [address] scan of abdomen that found acute vs chronic cholecystitis and cholelithiasis. Transferred to [facility] for sx. Recent UTI Past Medical History DM, HLD, HTN, gallstones, a-fib, HF, CAD, back sx, foot drop, inability to ambulate Current Diagnoses Acute cholecystitis/nephrolithiasis Cara Vogt PT, [facility] Acute Rehabilitation [facility] 09-18-2024 Note Attestation signed by Nitin Carroll MD at 09/20/2024 10:36 PM I personally saw and examined the patient on the same date of service as resident Dr Tatum . I reviewed and edited the note that was written by the resident. All entries reflect an accurate accounting of the evaluation and care rendered by me. As the teaching physician, I have personally performed or re-performed the history of present illness, physical exam and medical decision making activities of the encounter and verified the resident's documentation. I made pertinent changes as necessary to ensure accurate documentation. [facility] General Surgery DAILY PROGRESS NOTE Subjective No acute events overnight. Patient resting comfortably in bed. States that her pain is mostly in LLQ. Denies nausea, vomiting, diarrhea, constipation, fevers or chills. Objective Vitals: Vitals: 09/18/24 0800 BP: 135/69 Pulse: 82 Resp: 16 Temp: 36.6 ???C (97.9 ???F) SpO2: 97% I/O last 3 completed shifts: In: 350 (4.8 mL/kg) [I.V.:200 (2.7 mL/kg); IV Piggyback:150] Out: - (0 mL/kg) Weight: 73.1 kg No intake/output data recorded. Physical Exam General Appearance: AAOx3, NAD Neck: trachea midline Pulmonary: good respiratory effort on RA, no audible wheezing, no accessory muscle use Cardiac: RRR Abdomen: Mild lower abdominal tenderness, soft, non-distended, no guarding, no rebound tenderness Extremity: no edema bilateral upper and lower extremities Skin: warm and dry without rash Eyes: no scleral icterus Labs: Results from last 7 days Lab Units 09/18/24 0720 09/17/24 1947 WBC AUTO 10*3/uL 6.54 7.10 HEMOGLOBIN g/dL 12.3 12.9 HEMATOCRIT % 39.1 39.0 PLATELETS AUTO 10*3/uL 284 301 Results from last 7 days Lab Units 09/18/24 0720 09/17/24 1946 SODIUM mmol/L 138 136 POTASSIUM mmol/L 4.0 4.2 CO2 mmol/L 27 24 BUN mg/dL 17 16 CREATININE mg/dL 0.72 0.68 Medications: cefTRIAXone, 2 g, intravenous, q24h insulin lispro, 0-10 Units, subcutaneous, TID with meals And insulin lispro, 0-8 Units, subcutaneous, Nightly metroNIDAZOLE, 500 mg, intravenous, q12h technetium Tc-99m mebrofenin, 8.1 millicurie, intravenous, Once in imaging Imaging: CT transfer of outside films This order has been auto-finalized and does not contain a result. Assessment/Plan Saeed Sarabia is a 83 y.o. female with PMH of T2D, HTN, CAD, Afib on Eliquis, and CHF who presented with worsening confusion and abdominal pain. CT AP at OSH showed cholelithiasis and concern for cholecystitis. CBC unremarkable, normal lipase and LFTs. Follow up HIDA scan - No evidence of acute cholecystitis No acute surgical intervention warranted at this time OK for low fat diet from gen surg standpoint OK to discontinue abx GI following peripherally- no indication for for ERCP Rest of care per primary and consulting teams Alem Tatum MD General Surgery Resident, PGY-1 [facility] 09-17-2024 Note Hospital Medicine History and Physical 09/17/2024 10:18 PM THE HOSPITALIST TEAM PREFERS TO USE Off [employer] Away FOR NON-URGENT COMMUNICATION 7AM-7PM. IF I DO NOT RESPOND WITHIN 20 MINUTES OR URGENT MATTERS, PLEASE CALL THROUGH THE GRAVITY METER OPERATOR. FROM 7PM-7AM, PLEASE PAGE [phone](COVR). Chief Complaint Chief Complaint Patient presents with Abdominal Pain Transferred from [facility]; will be getting surgery at [facility] Altered Mental Status History of Present Illness Saeed Sarabia is an 83 y.o. female who came from [facility] emergency room with Abdominal pain diagnosed with cholelithiasis and acute cholecystitis. Patient is also confused. Past medical history significant for; diabetes type 2, hypertension, CAD with stents, HLD, atrial fibrillation on Eliquis, history of lumbar stenosis and lower back pain, history of foot drop and inability to ambulate. Patient was transferred from ER at [facility] to [facility] for evaluation and treatment of abdominal pain. She has been confused for a period of according to her weeks but has gotten worse in the past 3 days whereby she is not able to know where she is or communicating any meaningful way. Most of the history was given by patient's and her daughter at bedside says she was confused. states that patient has been having abdominal pain for approximately 2 months and was recently treated for UTI with amoxicillin but has been complaining of increasing abdominal pain, poor appetite and recently confusion that has worsened. While in the emergency room she elicited some discrete pain in the abdomen with no pinpoint point of maximal intensity. Prior to transfer from [facility] CT scan of the head was unremarkable and CT scan of the abdomen and pelvis did show significant cholelithiasis with findings suggestive of acute cholecystitis. Urinalysis done here was negative WBC was 7.10 hemoglobin was 12.9 hematocrit is 39.0 platelet count was 301,000. The basic chemistry was completely unremarkable lipase was 27 but magnesium level was 1.5 low. Chest x-ray is still pending. Patient is therefore being admitted for the management of acute cholecystitis and cholelithiasis with consults to general surgery as well as to gastroenterology. She is also being commenced on antibiotics namely Rocephin and Flagyl for acute cholecystitis. When I saw the patient she was lying on the gurney with and daughter at the bedside. Unable to give much history. She was awake and alert and in no apparent distress. Blood pressure was 140/59 pulse rate was 83 respiration was about 20 pulse oximetry was about 98% at this was on room air. Review of System and Physical Exam Temp: [36.8 ???C (98.3 ???F)] 36.8 ???C (98.3 ???F) Heart Rate: [81-93] 84 Resp: [16-23] 23 BP: (120-160)/(51-76) 145/68 Physical Exam Vitals and nursing note reviewed. Constitutional: General: She is not in acute distress. Appearance: She is obese. She is not diaphoretic. Comments: Patient is alert but confused HENT: Head: Normocephalic and atraumatic. Nose: Nose normal. Mouth/Throat: Mouth: Mucous membranes are moist. Pharynx: Oropharynx is clear. Eyes: Extraocular Movements: Extraocular movements intact. Pupils: Pupils are equal, round, and reactive to light. Cardiovascular: Rate and Rhythm: Normal rate and regular rhythm. Pulses: Normal pulses. Heart sounds: No murmur heard. No gallop. Pulmonary: Effort: Pulmonary effort is normal. Breath sounds: Normal breath sounds. No wheezing or rales. Abdominal: General: Bowel sounds are normal. There is no distension. Palpations: Abdomen is soft. There is no mass. Tenderness: There is no abdominal tenderness. There is guarding. There is no rebound. Comments: Abdomen is full with active bowel sounds and is also soft Musculoskeletal: General: Deformity (Right foot and ankle with foot drop and difficulty with ambulation) present. Normal range of motion. Cervical back: Normal range of motion and neck supple. No rigidity or tenderness. Skin: General: Skin is warm and dry. Neurological: General: No focal deficit present. Mental Status: She is alert. Gait: Gait abnormal. Comments: Oriented to self and not to place and time Psychiatric: Mood and Affect: Mood normal. Review of Systems Constitutional: Positive for fatigue. Negative for fever. HENT: Negative. Eyes: Negative. Respiratory: Negative. Cardiovascular: Negative. Gastrointestinal: Positive for abdominal pain. Negative for constipation, diarrhea, nausea and vomiting. Endocrine: Negative. Genitourinary: Negative. Musculoskeletal: Positive for back pain and gait problem (Patient has foot drop and walks with a walker). Skin: Negative. Allergic/Immunologic: Negative. Neurological: Positive for weakness (Weakness of the right lower extremity with difficulty with ambulation). Psychiatric/Be (more content not included)... [facility] 09-17-2024 Note Relevant Hx: CT scan completed at [facility] on 09/17/24 indicated cholecystitis and cholelithiasis Today's Plan: Discussed with Dr. Lombardi, not clear that her abdominal pain is due to acute cholecystitis as lipase, bilirubin, WBC are all WNL and physical exam findings do not correlate well with cholecystitis. Will have CT imaging of abdomen transferred from [facility] and order HIDA scan to further evaluate, as well as obtain ionized calcium, magnesium, and phosphorus labs. Recommend medicine admit and NPO status while waiting for HIDA scan. No associated orders from this encounter found during lookback period of 72 hours. [facility] 08-20-2024 History of Present illness Narrative Images from the original note [...] Orders CBC and differential Benign essential HTN (CMS/HCC) Please check blood [...] in dizziness and possible fall Coronary arteriosclerosis (CMS/HCC) Cont statin, b donna Unspecified diastolic (congestive) heart failure (CMS/HCC) Continue with cardiology as well as diuretics, BONIFACIO and b donna Type 2 diabetes mellitus without complication ([facility]/HCC) - Primary Check blood sugars daily, notify [...] device (Completed) Basic metabolic panel Other thrombophilia ([facility]) Continue with eliquis Relevant Orders CBC and differential Peripheral vascular disease, unspecified ([facility]) Continue current meds Control of BP as well as DM Type 2 diabetes mellitus with diabetic neuropathy, unspecified (CMS/HCC) Recommend tight blood glucose control Other Visit Diagnoses Type 2 diabetes mellitus without complications ([facility]) Relevant Medications glipiZIDE (Glucotrol) 5 MG tablet [...] blood glucose control documented in this encounter [facility] 08-20-2024 Instructions Galindo Miller NP - 08/20/2024 9:20 AM EST Monitor blood pressure at home, if consistent higher than 140/90 let me know documented in this encounter [facility] 02-02-2024 Note [place] [facility] Subjective Saeed Sarabia is a 83 [...] the morning., Disp: (more content not included)... [facility] 09-07-2022 Miscellaneous Notes Images from the original note were not included. [facility] d/c note reviewed: Discharge summary uploaded to [facility]. documented in this encounter [facility] 08-23-2022 History of Present illness Narrative SPINE SURGERY FOLLOW UP SERVICE [...] to face time was 10 minutes. SIGNATURE: Hal Adam PA-C PATIENT NAME: Saeed Sarabia DATE: August 23, 2022 TIME: 9:09 AM PAGER: documented in this encounter [facility] 08-10-2022 History of Present illness Narrative Patient presents to the office [...] for its avalibilty documented in this encounter [facility] 07-29-2022 Miscellaneous Notes Paperwork uploaded via [employer]. Sent to Luis Adam for review and signature. Copies faxed to Tommie @ [phone] and onbase. Dinora Fisher RN SURGERY [employer] special education teacher Calling: Fax received from [facility] Dirk Villareal PT Is Patient Requesting Appointment?: No Is Patient Calling due to Pain?: No Is Patient Requesting Medication?: No General Concerns: Physical Therapy Recertification Note to be signed and returned by fax to [phone]. Patient of: Dr. Sears documented in this encounter [facility] 06-16-2022 Miscellaneous Notes Paperwork uploaded via [employer] and sent to Luis Adam for review and signature. Copies faxed to [employer] at [phone] per request and onbase. Dinora Fisher RN Form received: From (agency / facility / parent): [facility] wash crew person (if given): none given Phone #: [phone] Fax # : [phone] Email: Information requested: Discharge Physician Orders (Radha) Patient of Dr. Sears documented in this encounter [facility] 05-26-2022 Miscellaneous Notes Forms uploaded via [employer]. Sent to Dr. Sears for review and signature. Copies faxed to [facility] at number provided and onbase. Dinora Fisher RN Form received: From (agency / facility / parent): [facility] wash crew person (if given): none given Phone #: [phone] Fax # : [phone] Email: Information requested: Physician Orders (Radha) Patient of Dr. Sears documented in this encounter [facility] 05-17-2022 History of Present illness Narrative SPINE SURGERY FOLLOW UP SERVICE [...] 3 months to check on her progress. Hal Adam PA-C May 17, 2022 1:04 PM SIGNATURE: Juice Sears MD PATIENT NAME: Saeed Sarabia DATE: May 17, 2022 TIME: 11:12 AM PAGER: Postop visit s/p lumbar laminectomy for lumbar radicular syndrome incision good R foot drop improving walking with walker Should start OP PT Juice Sears MD documented in this encounter [facility] 05-12-2022 Miscellaneous Notes Forms uploaded via [employer]. Sent to Dr. Sears for review and signature. Copies faxed to [facility] at [phone] and onbase. Dinora Fisher RN Form received: From (agency / facility / parent): [facility] wash crew person (if given): Phone #: [phone] Fax # : [phone] Email: Information requested: Physicians orders Patient of Dr. Sears Forwarded to nurse. documented in this encounter [facility] 05-06-2022 Miscellaneous Notes POC paperwork uploaded to [employer] and sent to Dr. Sears for review and signature. Copies faxed to [facility] at [phone] and onbase. Dinora Fisher RN SURGERY [employer] special education teacher Calling: [facility] Is Patient Requesting Appointment?: No Is Patient Calling due to Pain?: No Is Patient Requesting Medication?: No General Concerns: Plan of Care 04/17/22 - 06/15/22 Patient of: Dr. Sears documented in this encounter [facility] 04-29-2022 Miscellaneous Notes Spoke to Mojgan from [facility] regarding plan of care - explained that Dr. Platt will not typically follow patients for extended recovery past the post surgical period. Saeed has a follow up appointment 05/17 - will discuss at this time if her home health plan of care needs to be transitioned to a different practitioner. Forms uploaded to [employer] and sent to Dr. Sears for review and signature. Copies faxed to [facility] [phone] and onbase. Dinora Fisher RN Form received: From (agency / facility / parent): [facility] wash crew person (if given): Mojgan Phone #: [phone] Fax # : ATTN Mojgan [phone] Email: Information requested: Plan of care Patient of Dr. Sears documented in this encounter [facility] 04-22-2022 Miscellaneous Notes Forms received. Uploaded to [employer] and sent to Dr. Sears for review and signature. Copies sent to [facility] at fax [phone] and onbase. Dinora Fisher RN Form received: From (agency / facility / parent): [facility] wash crew person (if given): Saeed Sarabia Phone #: [phone] (home) Fax # : [phone] Email: Information requested: therapy evaluation and care plan Patient of Dr. sears documented in this encounter [facility] 04-20-2022 Miscellaneous Notes PT and home care orders faxed to listed contact and number below. Can fax orders to [phone] to Debbie Miller. Cris Leger RN at [facility] [phone], reports start of care for skilled nurse, PT, OT, ST and bath aide as of 04/16/22. No callback is necessary. Called and left vm with ELFEGO Elliott - requesting fax or email to provide requested orders. Dinora Fisher RN Called and left VM to ELFEGO Elliott - requesting fax number or email to send PT/home health orders. Dinora Fisher RN Orders placed Dimas Ferreira APRN.LEXI Patient s/p 03/31/2022: L2-L5 laminectomy with Dr. Sears. Home health agency is requesting PT and home health order - per epic review, no orders seen in chart. Will forward to BLAYNE for review. Dinora Fisher RN SURGERY [employer] special education teacher Calling: Debbie Miller RNbusiness management professor sample steamer [facility] direct line Is Patient Requesting Appointment?: No Is Patient Calling due to Pain?: No Is Patient Requesting Medication?: No General Concerns: Requesting orders for home health PT and nurse to check on patient in the home. Patient of: Dr. Sears documented in this encounter [facility] 04-13-2022 Progress note Note Date/Time April 13, 2022 1:52pm [facility] [address] [place] [address] Physiatry(Rehab) Progress Note Signed Patient: Saeed Sarabia MR#: [id number] : 1940 Acct:[id number] Age/Sex: 81 / F Adm Date: 2 Loc: Room: 4E3597-0 Type : ADM IN Attending Dr: Kingston [...] lumbar decompression surgery. She initially presented to [facility] ER on 03/23/2022 with [...] She has had an MRI performed at [facility] with Dr. 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 She was scheduled to have a lumbar surgery, but it was cancelled. [facility] neurosurgery was consulted, as there was no neurosurg coverage at [facility] on the day of [...] mg 04/07/22 15:58 Bisacodyl 10 Mg Supp.Rect [place] 04/07/23 15:57 DAILY PRN Constipation Bumetanide 0.5 [...] 15:58 Docusate Enema 283 Mg/5 Ml Enema [place] 04/07/23 15:57 DAILY PRN Constipation Gabapentin 100 [...] mg DAILY LAUREN Administration Assessment/Plan <Brooklyn Swanson, CNA CAREGIVER - Last Filed: 04/13/22 13:52> Assessment/Plan (1) [...] equipment to enhance the patient's a functional anglican Ensure adequate nutrition and hydration Sleep: Reports no issues Pain: Reports Tylenol provides sufficient relief. Occasional neuropathic pains in the right lower leg, may increase gabapentin as needed. Discharge planning: Home with End of this week. I spent greater than 15 minutes for services, including qipm-rv-[id number] encounter with the patient, discussion of the case, plan of care, and exam; and jbjbbyl-ej-ifmz activities, such as reviewing pertinent instructional consultant documentation, recent therapy notes, laboratory and radiology studies, and discussion of case with care team including physician, nursing, case checker, and therapists. More than 50 % of [...] chart, including current orders, allied health and instructional consultant notes, labs/imaging and performed jacobs elements of exam and I formulated the plan of care and facilitated the medical decision making and confirmed the nurse practitioner note, as above Plan for home Monday with family FI went well today Documented By: Brooklyn Swanson APRN 04/13/22 1 342 Signed By: <Electronically signed by OMID Swanson> 04/13/22 1352 <Electronically signed by Kingston Gao MD> 04/13/225 [facility] Work Phone: 1(354) 605-809807-06-2022 Progress note Author Kingston Gao [facility] April 13, 2022 10:22am Note Date/Time April 13, 2022 10:15 am [facility] [address] [place] [address] Physiatry(Rehab) Progress Note Signed Patient: Saeed Sarabia MR#: [id number] : 1940 Acct:[id number] Age/Sex: 81 / F Adm Date: 2 Loc: Room: [address] [place] [address] Type : ADM IN Attending Dr: Kingston Gao MD Copies to: ~ Date of Service: 04/12/2022 Subjective Subjective Narrative: Ms. Sarabia is a 81 year old female with medical history of type 2 diabetes, A. fib anticoagulated with Eliquis, CAD, hypertension, hyperlipidemia presents to inpatient rehabilitation for strengthening s/p lumbar decompression surgery. She initially presented to [facility] ER on 03/23/2022 with [...] She has had an MRI performed at [facility] with Dr. 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 She was scheduled to have a lumbar surgery, but it was cancelled. [facility] neurosurgery was consulted, as there was no neurosurg coverage at [facility] on the day of admission. She was accepted to [facility] and transferred non-emergently, since there was [...] mg 04/07/22 15:58 Bisacodyl 10 Mg Supp.Rect [place] 04/07/23 15:57 DAILY PRN Constipation Bumetanide 0.5 [...] 15:58 Docusate Enema 283 Mg/5 Ml Enema [place] 04/07/23 15:57 DAILY PRN Constipation Gabapentin 100 [...] equipment to enhance the patient's a functional anglican Ensure adequate nutrition and hydration Sleep: Reports no issues Pain: Reports Tylenol provides sufficient relief. Occasional neuropathic pains in the right lower leg, may increase gabapentin as needed. Discharge planning: Home with End of this week. Documented By: Kingston Gao MD 04/12/22 1012 Signed By: <Electronically signed by Kingston Gao MD> 04/13/22 1022 [facility] Work Phone: 1(204) 225-284607-01-2022 History and physical note Author Kingston Gao [facility] April 08, 2022 1:06pm Note Date/Time April 08, 2022 10:50 am [facility] [address] [place] [address] Physiatry (Rehab) H&P Signed Patient: Saeed Sarabia MR#: [id number] : 1940 Acct:[id number] Age/Sex: 81 / F Adm Date: 2 Loc: Room: [address] [place] [address] Type : ADM IN Attending Dr: Kingston Gao MD Copies to: OMID Walker MD Lisa J Aichholz, PIECE GOODS CLERK-C~ <Brooklyn Swanson APRN - Last Filed: 04/08/22 [...] lumbar decompression surgery. She initially presented to [facility] ER on 03/23/2022 with [...] She has had an MRI performed at [facility] with Dr. 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 She was scheduled to have a lumbar surgery, but it was cancelled. [facility] neurosurgery was consulted, as there was no neurosurg coverage at [facility] on the day of [...] complaints, except as documented Meds <Brooklyn Swanson, OMID - Last Filed: 04/08/22 13:03> Medications and [...] Bisacodyl (Bisacodyl 10 Mg Supp.Rect) 10 mg [place] DAILY PRN PRN Reason: Constipation Stop: 04/07/23 [...] Enema 283 Mg/5 Ml Enema) 283 mg [place] DAILY PRN PRN Reason: Constipation Stop: 04/07/23 15:57 Ezetimibe (Ezetimibe 10 Mg Tablet) 10 mg PO DAILY LAUREN Stop: 04/08/23 08:59 Last Admin: 04/08/22 09:48 Dose: 10 mg Documented by: Gabapentin (Gabapentin 100 Mg Capsule) 100 mg PO TID LAUREN Stop: 04/07/23 21:59 Last Admin: 04/08/22 09:48 Dose: 100 mg Documented by: Glipizide (Glipizide 5 Mg Tablet) 5 mg PO BID.WITH.MEALS [facility] Stop: 04/07/23 16:59 Last Admin: 04/08/22 09:48 Dose: 5 mg Documented by: Heparin Sodium (Porcine) (Heparin 5,000 Unit/Ml Vial) 5,000 unit SUBCUT Q12HR LAUREN Stop: 04/09/22 21:01 Last Admin: 04/08/22 09:49 Dose: 5,000 unit Documented by: Lactulose (Lactulose 20 Gm/30 Ml Udc) 30 gm PO DAILY PRN PRN Reason: Constipation Stop: 04/07/23 15:57 Lidocaine (Lidocaine 4% Adh..Patch) 2 patch TOPICAL DAILY LAUREN Stop: 04/08/23 08:59 Last Admin: 04/08/22 09:49 Dose: 2 patch Documented by: Lisinopril (Lisinopril 5 Mg Tablet) 5 mg PO DAILY [facility] Stop: 04/08/23 08:59 Last Admin: 04/08/22 09:48 Dose: 5 mg Documented by: Metformin HCl (Metformin 500 Mg Tablet) 500 mg PO BID.WITH.MEALS [facility] Stop: 04/07/23 16:59 Last Admin: 04/08/22 09:48 Dose: 500 mg Documented by: Metoprolol Succinate (Metoprolol Succinate 100 Mg Tab.Er.24h) 100 mg PO DAILY [facility] Stop: 04/08/23 08:59 Last Admin: 04/08/22 09:48 [...] 12.5 Mg Tablet) 12.5 mg PO DAILY [facility] Stop: 04/08/23 08:59 Last Admin: 04/08/22 09:48 [...] % (Auto) 61.2 Lymph % (Auto) 26.1 Brule % (Auto) 9.4 Eos % (Auto) 2.7 Baso % (Auto) 0.6 Neut # (Auto) 4.7 Lymph # (Auto) 2.0 Brule # (Auto) 0.7 Eos # (Auto) 0.2 [...] MPV Neut % (Auto) Lymph % (Auto) Brule % (Auto) Eos % (Auto) Baso % (Auto) Neut # (Auto) Lymph # (Auto) Brule # (Auto) Eos # (Auto) Baso # [...] 24 hour daily monitoring and intervention from Acid Etch Operator as well as other consulting physicians including internal medicine as well as 24 hour daily seafood preparer nursing - for medical safe / optimal [...] equipment to enhance the patient's a functional anglican Ensure adequate nutrition and hydration Sleep: Reports no issues Pain: Reports Tylenol provides sufficient relief. Occasional neuropathic pains in the right lower leg, may increase gabapentin as needed. Discharge planning: Home with in 7 to 10 days. I spent greater than 15 minutes for services, including fojc-md-srmr encounter with the patient, discussion of the case, plan of care, and exam; and rynnylo-pj-keai activities, such as reviewing pertinent instructional consultant documentation, recent therapy notes, laboratory and radiology studies, and discussion of case with care team including physician, nursing, case checker, and therapists. More than 50 % of [...] chart, including current orders, allied health and instructional consultant notes, labs/imaging and performed jacobs elements [...] equipment to enhance the patient's a functional anglican Encourage deep breathing exercises and incentive spirometry RD evaluation Ensure adequate nutrition and hydration Discharge planning. Documented By: Brooklyn Swanson APRN 04/08/22 1 047 Signed By: <Electronically signed by Kingston Gao MD> 04/08/22 4793 [facility] Work Phone: 1(181) 630-664707-01-2022 Consult note Author Justyn Spann [facility] April 08, 2022 1:04pm Note Date/Time April 08, 2022 1:01p [facility] EN[facility] [address] [place] [address] Hospitalist Consult Note Signed Patient: Saeed Sarabia MR#: [id number] : 1940 Acct:[id number] Age/Sex: 81 / F Adm Date: 2 Loc: Room: [address] [place] [address] Type : ADM IN Attending Dr: Kingston Gao MD Copies to: MD Kingston Stauffer MD Lisa J Aichholz, PIECE GOODS CLERK-C~ HPI DATE OF CONSULTATION: 04/08/22 REQUESTING PROVIDER: Kingston Gao Consult Narrative HPI: Patient is an 81-year-old female, with known history of spinal stenosis, who underwent spinal surgical intervention at [facility]. She has presented to our facility on 05 April, complaining of severe pain in the right lower extremity, foot drop, which was attributed to her known spinal stenosis. Arrangements were made, and the patient was transferred to [facility] for surgical care. The procedure was [...] Spinal stenosis GERD CAD status post PTCI 2006 Family history as noted 10 point review [...] post spinal decompressive surgery for stenosis at [facility]. No complications. Further postoperative care per [...] mg 04/07/22 15:58 Bisacodyl 10 Mg Supp.Rect [place] 04/07/23 15:57 DAILY PRN Constipation Bumetanide 0.5 [...] 15:58 Docusate Enema 283 Mg/5 Ml Enema [place] 04/07/23 15:57 DAILY PRN Constipation Ezetimibe 10 [...] % (Auto) 61.2, Lymph % (Auto) 26.1, Brule % (Auto) 9.4, Eos % (Auto) 2.7, Baso% (Auto) 0.6, Neut # (Auto) 4.7, Lymph # (Auto) 2.0, Brule # (Auto) 0.7, Eos # (Auto) 0.2, Baso # (Auto) 0.0, Nucleated RBC % (auto) 0.1 04/07/22 21:44: POC Glucose 161 04/07/22 17:16: POC Glucose 110 Documented By: Justyn Spann MD 04/08/22 1257 Signed By: <Electronically signed by Justyn Spann MD> 04/08/22 1304 [facility] Work Phone: 1(498) 981-939206-19-2022 Progress note Author Kieran Scott [facility] March 27, 2022 3:10pm Note Date/Time March 27, 2022 3:10 pm [facility] [address] [place] [address] Hospitalist Progress Note Signed Patient: Saeed Sarabia MR#: [id number] : 1940 Acct:[id number] Age/Sex: 81 / F Adm Date: 2 Loc: Room: [address] [place] [address] Type : ADM INOo Attending Dr: Kieran [...] is still waiting to be transferred to [facility]. We still did not hear [...] Patient is waiting to be transferred to [facility]. We do not have any [...] [facility]. We will continue with current medical therapy and plan as given below. I will DC her Claire catheter. She has traumatic urinecollection with plenty RBC. We will try to use [place] and repeat UA for today. Admission Assessment and Plan: Lumbar spinal stenosis/right foot drop Patient continues to have weakness in the right foot with numbness MRI lumbar spine from [facility] reviewed which showed L4-L5 disc desiccation, moderate diffuse disc bulge and ligamentum flavum hypertrophy and facet osteoarthropathy, severe central canal stenosis, moderate right and mild left foraminal stenosis, L5-S1 moderate to severe disc space narrowing with endplate sclerosis [facility] [facility] and is awaiting bed Family is upset that she does not have a bed available yet at [facility] and wants to go to [facility] if possible. Spoke to neurosurgery at [facility] who would like to see the [...] signed by Kieran Scott MD> 03/27/22 1510 [facility] Work Phone: 1(190) 735-808406-18-2022 Progress note Author Kieran Scott [facility] March 26, 2022 3:44pm Note Date/Time March 26, 2022 3:37 pm [facility] [address] [place] [address] Hospitalist Progress Note Signed Patient: Saeed Sarabia MR#: [id number] : 1940 Acct:[id number] Age/Sex: 81 / F Adm Date: 2 Loc: Room: [address] [place] [address] Type : ADM INOo Attending Dr: Kieran [...] is still waiting to be transferred to [facility]. We still did not hear [...] Braedenq PRN Reason Stop Dose Admin Acetaminophen 650 [...] Patient is waiting to be transferred to [facility]. We do not have any [...] [facility] We will continue with current medical therapy and plan as given below. Admission Assessment and Plan: Lumbar spinal stenosis/right foot drop Patient continues to have weakness in the right foot with numbness MRI lumbar spine from [facility] reviewed which showed L4-L5 disc desiccation, moderate diffuse disc bulge and ligamentum flavum hypertrophy and facet osteoarthropathy, severe central canal stenosis, moderate right and mild left foraminal stenosis, L5-S1 moderate to severe disc space narrowing with endplate sclerosis Patient has been accepted by neurosurgery at [facility] and is awaiting bed Family is upset that she does not have a bed available yet at [facility] and wants to go to [facility] if possible. Spoke to neurosurgery at [facility] who would like to see the [...] signed by Kieran Scott MD> 03/26/22 1544 [facility] Work Phone: 1(243) 170-921406-17-2022 Progress note Author Rupert Anthony [facility] March 25, 2022 3:36pm Note Date/Time March 25, 2022 3:36 pm [facility] [address] [place] [address] Hospitalist Progress Note Signed Patient: Saeed Sarabia MR#: [id number] : 1940 Acct:[id number] Age/Sex: 81 / F Adm Date: 2 Loc: Room: [address] [place] [address] Type : ADM INOo Attending Dr: Rupert [...] 03/25/22 12:00 03/25/22 12:00 03/25/22 12:00 03/25/22 12:03/25/22 12:00 Narrative: General: Awake, alert, oriented x3 [...] Tizanidine 4 Mg Tablet PO 03/25/23 21:59 [facility] A&P - Hospitalist Assessment/Plan (1) Lumbar spinal stenosis: (2) Foot drop, right: Plan Lumbar spinal stenosis/right foot drop Patient continues to have weakness in the right foot with numbness MRI lumbar spine from [facility] reviewed which showed L4-L5 disc desiccation, moderate diffuse disc bulge and ligamentum flavum hypertrophy and facet osteoarthropathy, severe central canal stenosis, moderate right and mild left foraminal stenosis, L5-S1 moderate to severe disc space narrowing with endplate sclerosis Patient has been accepted by neurosurgery at [facility] and is awaiting bed Family is upset that she does not have a bed available yet at [facility] and wants to go to [facility] if possible. Spoke to neurosurgery at [facility] who would like to see the [...] signed by Rupert Anthony MD> 03/25/22 1536 [facility] Work Phone: 1(797) 491-929506-17-2022 Consult note Author Yvrose Crocker [facility] March 25, 2022 10:12am Note Date/Time March 24, 2022 9:58 am [facility] [address] [place] [address] Neurology Consult Note Signed with Addenda Patient: Saeed Sarabia MR#: [id number] : 1940 Acct:[id number] Age/Sex: 81 / F Adm Date: 2 Loc: Room: [address] [place] [address] Type : ADM INOo Attending Dr: Rupert [...] does not have a bed assignment at [facility] today we can contact [facility] or [facility] for other options. Patient and state understanding and are agreeable. Addendum Documented By: JH Crocker 03/25/22 1012 Addendum Signed By: <Electronically signed by JH Crocker> 03/25/22 1012 HPI Consult Date: 03/24/22 [id number] Armor Crewman: BLAKE Green with Dr Astorga Reason for [...] MRI scan of her lumbar spine at [facility] recently which prompted the surgery. She [...] compared to the left CEREBELLAR EXAM: * Dfsebp-ry-ogcm and alternating movements are intact and normal in bilateral upper extremities * Mihj-kh-gmql and alternating movements are intact and normal in the left lower extremity. She is able to do ozrk-om-cxci with the right lower extremity with some [...] Donny Wolf M.D.03/23/2022 8:03 PM Dictation Location: [place] [address] Knee X-Ray 03/23/22 19:20 IMPRESSION: Tricompartmental osteoarthritic changes are noted. There is also evidence suggesting underlying chondrocalcinosis. No acute bony injury. Impression dictated by: Donny Wolf M.D.03/23/2022 8:02 PM Dictation Location: [place] [address] Assessment/Plan (1) Lumbar spinal stenosis: Code(s): M48.061 [...] of her lumbar spinein February at the [facility] which is available for review. She was exceptedat the [facility] and we are awaiting a bed. 1. MRI of the lumbar spine from [facility] reviewed. Awaiting a bed assignment at [facility]. I will defer further work-up to the [...] No other recommendations. Documented By: JH Latif [id number] Signed By: <Electronically signed by JH Crocker> 03/24/22 1117 <Electronically signed by Colby Astorga DO> 03/24/22 6873 [facility] Work Phone: 1(402) 973-584906-16-2022 Progress note Author Rupert Anthony [facility] March 24, 2022 5:12pm Note Date/Time March 24, 2022 5:12 pm [facility] [address] [place] [address] Progress Note Signed Patient: Saeed Sarabia MR#: [id number] : 1940 Acct:[id number] Age/Sex: 81 / F Adm Date: 2 Loc: Room: 5D2243-7 Type : ADM INOo Attending Dr: Rupert Anthony MD Copies to: ~ Date of Service: 03/24/2022 Progress Narrative Note PROGRESS NOTE Progress Note: Patient admitted last night for right foot drop. Patient has been accepted to [facility] by neurosurgery and is awaiting bed. Patient denies any pain in her right leg at this time. Continue current management. Neurology and neurosurgery has been consulted. Documented By: Rupert Anthony MD 03/24/22 1711 Signed By: <Electronically signed by Rupert Anthony MD> 03/24/22 1712 [facility] Work Phone: [phone]) 442-653706-16-2022 History and physical note Author Perlita Gautam [facility] March 24, 2022 4:44am Note Date/Time March 24, 2022 4:24 am [facility] [address] [place] [address] Hospitalist H&P Signed Patient: Saeed Sarabia MR#: [id number] : 1940 Acct:[id number] Age/Sex: 81 / F Adm Date: 2 Loc: Room: [address] [place] [address] Type : ADM IN Attending Dr: Perlita Braxton MD Copies to: MD Sarai Martin APRN Lisa J Aichholz, PIECE GOODS CLERK-C~ HPI DATE OF EXAMINATION: 03/24/22 CHIEF COMPLAINT: [...] 03/23/22 19:25 MCHC 32.9 g/dL (32.0-35.0) 03/23/22 19:25 RDW 13.8 % (11.9-15.3) 03/23/22 19:25 Plt Count 295 x10E3/uL (150-450) 03/23/22 19:25 MPV 7.8 fl (6.3-10.7) 03/23/22 19:25 Neut % (Auto) 49.2 % (.) 03/23/22: Lymph % (Auto) 38.7 % (.) 03/23/22 19:25 Brule % (Auto) 9.2 % (.) 03/23/22: Eos % (Auto) 2.3 % (.) 03/23/22: Baso % (Auto) 0.6 % (.) 03/23/22: Neut # (Auto) 4.2 x10E3/uL (1.8-7.7) 03/23/22: Lymph # (Auto) 3.3 x10E3/uL (1.00-4.8) 03/23/22: Brule # (Auto) 0.8 x10E3/uL (0.0-0.8) 03/23/22: Eos # (Auto) 0.2 x10E3/uL (0.0-0.45) 03/23/22: Baso # (Auto) 0.1 x10E3/uL (0.0-0.2) 03/23/22: Nucleated RBC % (auto) 0.0 % (0-0.5) 03/23/22: PT 15.7 Seconds (9.0-12.9) H 03/23/22 19:25 INR 1.4 03/23/22:25 APTT 32.2 Seconds (25.1-36.5) 03/23/22 19:25 PHA Creatinine Clear 46.80 03/23/22 19:25 Sodium 141 mmol/L (136-146) 03/23/22 19:25 Potassium 4.4 mmol/L (3.5-5.1) 03/23/22 19:25 Chloride 103 mmol/L (95-114) 03/23/22 19:25 Carbon [...] pH 7.5 (5.0-9.0) 03/23/22 19:45 Ur Specific [place] 1.017 (1.001-1.030) 03/23/22 19:45 Urine Protein Negative [...] in ED ?ER physician spoke with Dr. Suarez at [facility] neurosurgery who accepted patient and is pending bed availability. According to ER physician conversationwith Dr. Cruz there was no concerns for Julian monsalve at this point. ?MRI from [facility] pending availability, showing L4-L5 severe stenosis [...] plan of care and confirmed the resident's/international controller/medical student's dictation/written note. Documented By: Sarai Singletary APRN 03/24/22 0407 Signed By: <Electronically signed by OMID Singletary> 03/24/22 0438 <Electronically signed by Perlita Braxton MD> 03/24/22 0444 [facility] Work Phone: 1(111) 726-163406-15-2022 Evaluation note* Encounter Date Diagnosis Assessment Notes Treatment Notes Treatment Clinical Notes Mar, Right foot drop (ICD-10 - M21.371) Patient was referred to the emergency room for emergency evaluation in anticipation of probably being transferred to a tertiary center. Mar, Spinal stenosis, lumbar region with neurogenic claudication (ICD-10 - M48.062) [facility] Other evaluation noteNo assessment information available [facility] Work Phone: Evaluation note* Diagnosis Onset Date Resolution Status Foot drop, right acute Lumbar spinal stenosis acute [facility] Work Phone: evaluation note* Diagnosis Onset Date Resolution Status Foot drop, right acute Lumbar spinal stenosis acute Atrial fibrillation acute Diabetes acute Foot drop, right acute Hyperlipidemia acute Hypertension acute Impaired mobility and activities of daily living acute S/P lumbar laminectomy acute [facility] Work Phone: Evaluation note* Diagnosis Spinal stenosis of lumbar region, unspecified whether neurogenic claudication present- Primary [facility] Diagnosis Spinal stenosis of lumbar region, unspecified whether neurogenic claudication present- Primary Right leg weakness Other musculoskeletal symptoms referable to limbs [facility]* Diagnosis Acquired talipes equinovalgus of right foot- Primary Foot drop, right foot [facility]* Diagnosis Foot drop, right foot- Primary [facility]* Diagnosis Encounter for subsequent annual wellness visit (AWV) in Medicare patient- Primary Benign essential HTN (CMS/HCC) Chronic atrial fibrillation (HCC) (CMS/HCC) Atrial fibrillation Type 2 diabetes mellitus without complication, without long-term current use of insulin (CMS/HCC) Mixed hyperlipidemia (CMS/HCC) Mixed hyperlipidemia Abnormal thyroid blood test Type 2 diabetes mellitus without complication, without long-term current use of insulin (CMS/HCC) [facility] Encounter for subsequent annual wellness visit (AWV) in Medicare patient- Primary Benign essential HTN (CMS/HCC) Chronic atrial fibrillation (HCC) (CMS/HCC) Atrial fibrillation Type 2 diabetes mellitus without complication, without long-term current use of insulin (CMS/HCC) Mixed hyperlipidemia (CMS/HCC) Mixed hyperlipidemia Abnormal thyroid blood test Type 2 diabetes mellitus without complications (CMS/HCC) [facility] Diagnosis Encounter for subsequent annual wellness [...] heart failure (CMS/HCC) Chronic atrial fibrillation (HCC) ([facility]/HCC) Atrial fibrillation Benign essential HTN (CMS/HCC) Coronary arteriosclerosis (CMS/HCC) Coronary atherosclerosis of unspecified type of vessel, [place] or graft Type 2 diabetes mellitus without complications (CMS/HCC) documented in this encounter [facility]* Diagnosis Encounter for subsequent annual wellness visit (AWV) in Medicare patient- Primary Benign essential HTN (CMS/HCC) Chronic atrial fibrillation (HCC) ([facility]/HCC) Atrial fibrillation Type 2 diabetes mellitus without [...] heart failure (CMS/HCC) Chronic atrial fibrillation (HCC) ([facility]/HCC) Atrial fibrillation Benign essential HTN (CMS/HCC) Coronary arteriosclerosis (CMS/HCC) Coronary atherosclerosis of unspecified type of vessel, [place] or graft Type 2 diabetes mellitus without complications (CMS/HCC) UTI symptoms- Primary Vaginal yeast infection Candidiasis of vulva and vagina documented in this encounter [facility]* Diagnosis Encounter for subsequent annual wellness visit (AWV) in Medicare patient- Primary Benign essential HTN (CMS/HCC) Chronic atrial fibrillation (HCC) ([facility]/HCC) Atrial fibrillation Type 2 diabetes mellitus without [...] Coronary atherosclerosis of unspecified type of vessel, [place] or graft Type 2 diabetes mellitus without complications (CMS/HCC) Hypernatremia- Primary Hyperosmolality and/or hypernatremia documented in this encounter [facility]* Diagnosis Encounter for subsequent annual [...] Coronary atherosclerosis of unspecified type of vessel, [place] or graft Type 2 diabetes mellitus without complications (CMS/HCC) Type 2 diabetes mellitus without complication, without long-term current use of insulin (CMS/HCC)- Primary Acute metabolic encephalopathy Type 2 diabetes mellitus with diabetic neuropathy, without long-term current use of insulin (CMS/HCC) Chronic atrial fibrillation (HCC) (CMS/HCC) Atrial fibrillation Benign essential HTN (CMS/HCC) Chronic diastolic congestive heart failure (CMS/HCC) Acute cholecystitis Thickened endometrium Nonspecific (abnormal) findings on radiological and other examination of genitourinary organs Acute gastric ulcer without hemorrhage or perforation Acute gastric ulcer without mention of hemorrhage, perforation, or obstruction documented in this encounter [facility]* Diagnosis Encounter for subsequent annual [...] Coronary atherosclerosis of unspecified type of vessel, [place] or graft Type 2 diabetes mellitus without complications (CMS/HCC) Type 2 diabetes mellitus without complication, without long-term current use of insulin (CMS/HCC)- Primary Acute metabolic encephalopathy Type 2 diabetes mellitus with diabetic neuropathy, without long-term current use of insulin (CMS/HCC) Chronic atrial fibrillation (HCC) (CMS/HCC) Atrial fibrillation Benign essential HTN (CMS/HCC) Chronic diastolic congestive heart failure (CMS/HCC) Acute cholecystitis Thickened endometrium Nonspecific (abnormal) findings on radiological and other examination of genitourinary organs Acute gastric ulcer without hemorrhage or perforation Acute gastric ulcer without mention of hemorrhage, perforation, or obstruction Type 2 diabetes mellitus without complications (CMS/HCC) documented in this encounter [facility]* Diagnosis Encounter for subsequent annual [...] Coronary atherosclerosis of unspecified type of vessel, [place] or graft Type 2 diabetes mellitus without complications (CMS/HCC) Type 2 diabetes mellitus without complication, without long-term current use of insulin (CMS/HCC)- Primary Acute metabolic encephalopathy Type 2 diabetes mellitus with diabetic neuropathy, without long-term current use of insulin ([facility]) Chronic atrial fibrillation (HCC) ([facility]) Atrial fibrillation Benign essential HTN ([facility]/HCC) Chronic diastolic congestive heart failure ([facility]/HCC) Acute cholecystitis Thickened endometrium Nonspecific (abnormal) findings on radiological and other examination of genitourinary organs Acute gastric ulcer without hemorrhage or perforation Acute gastric ulcer without mention of hemorrhage, perforation, or obstruction Non-recurrent acute suppurative otitis media of right ear without spontaneous rupture of tympanic membrane- Primary Acute non-recurrent sinusitis of other sinus [facility] Diagnosis Spinal stenosis- Primary Spinal stenosis, unspecified region other than cervical Atrial fibrillation, unspecified type (HCC) Diastolic heart failure, unspecified HF chronicity ([facility]) Atherosclerosis of [place] coronary artery without angina pectoris, unspecified whether [place] or transplanted heart Right leg weakness Other musculoskeletal symptoms referable to limbs HLD (hyperlipidemia) Other and unspecified hyperlipidemia Foot drop, right foot Atrial fibrillation (HCC) Atrial fibrillation Benign essential HTN Essential hypertension, benign DM type 2 (diabetes mellitus, type 2) ([facility]) Type II or unspecified type diabetes mellitus without mention of complication, not stated as uncontrolled Constipation Unspecified constipation Confusion- Primary Unspecified psychosis Abdominal pain, unspecified abdominal location [facility]* Diagnosis Atrial fibrillation, unspecified type (HCC) Diastolic heart failure, unspecified HF chronicity (HCC) Atherosclerosis of [place] coronary artery without angina pectoris, unspecified whether [place] or transplanted heart Right leg weakness Other musculoskeletal symptoms referable to limbs HLD (hyperlipidemia) Other and unspecified hyperlipidemia Foot drop, right foot Benign essential HTN Essential hypertension, benign Constipation Unspecified constipation Altered mental status- Primary Altered mental status, unspecified altered mental status type Lower abdominal pain Abdominal pain, other specified site Decreased appetite Anorexia Nephrolithiasis Calculus of kidney Biliary calculus of other site without obstruction Endometrial hyperplasia Endometrial hyperplasia, unspecified Abdominal pain Abdominal pain, unspecified site Malnutrition of moderate degree ([facility]) Malnutrition of moderate degree Cellulitis of foot Cellulitis and abscess of foot, except toes Weight loss Loss of weight Diarrhea Spinal stenosis Spinal stenosis, unspecified region other than cervical Atrial fibrillation (HCC) Atrial fibrillation 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 Delirium due to another medical condition Delirium due to conditions classified elsewhere Vitamin B12 deficiency Other B-complex deficiencies Thickened endometrium- Primary Nonspecific (abnormal) findings on radiological and other examination of genitourinary organs [facility]* Diagnosis Atrial fibrillation, unspecified type (HCC) Diastolic heart failure, unspecified HF chronicity (HCC) Atherosclerosis of [place] coronary artery without angina pectoris, unspecified whether [place] or transplanted heart Right leg weakness Other musculoskeletal symptoms referable to limbs HLD (hyperlipidemia) Other and unspecified hyperlipidemia Foot drop, right foot Benign essential HTN Essential hypertension, benign Constipation Unspecified constipation Altered mental status- Primary Altered mental status, unspecified altered mental status type Lower abdominal pain Abdominal pain, other specified site Decreased appetite Anorexia Nephrolithiasis Calculus of kidney Biliary calculus of other site without obstruction Endometrial hyperplasia Endometrial hyperplasia, unspecified Abdominal pain Abdominal pain, unspecified site Malnutrition of moderate degree (HCC) Malnutrition of moderate degree Cellulitis of foot Cellulitis and abscess of foot, except toes Weight loss Loss of weight Diarrhea Spinal stenosis Spinal stenosis, unspecified region other than cervical Atrial fibrillation (HCC) Atrial fibrillation 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 Delirium due to another medical condition Delirium due to conditions classified elsewhere Vitamin B12 deficiency Other B-complex deficiencies Delirium due to another medical condition- Primary Delirium due to conditions classified elsewhere Cognitive decline Unspecified persistent mental disorders due to conditions classified elsewhere History of UTI Personal history of urinary (tract) infection Vitamin B12 deficiency Other B-complex deficiencies documented in this encounter [facility] note* Diagnosis Atrial fibrillation, unspecified type (HCC) Diastolic heart failure, unspecified HF chronicity (HCC) Atherosclerosis of [place] coronary artery without angina pectoris, unspecified whether [place] or transplanted heart Right leg weakness Other musculoskeletal symptoms referable to limbs HLD (hyperlipidemia) Other and unspecified hyperlipidemia Foot drop, right foot Benign essential HTN Essential hypertension, benign Constipation Unspecified constipation Altered mental status- Primary Altered mental status, unspecified altered mental status type Lower abdominal pain Abdominal pain, other specified site Decreased appetite Anorexia Nephrolithiasis Calculus of kidney Biliary calculus of other site without obstruction Endometrial hyperplasia Endometrial hyperplasia, unspecified Abdominal pain Abdominal pain, unspecified site Malnutrition of moderate degree (HCC) Malnutrition of moderate degree Cellulitis of foot Cellulitis and abscess of foot, except toes Weight loss Loss of weight Diarrhea Spinal stenosis Spinal stenosis, unspecified region other than cervical Atrial fibrillation (HCC) Atrial fibrillation 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 Delirium due to another medical condition Delirium due to conditions classified elsewhere Vitamin B12 deficiency Other B-complex deficiencies Thickened endometrium- Primary Nonspecific (abnormal) findings on radiological and other examination of genitourinary organs Endometrial polyp Polyp of corpus uteri Endocervical polyp Mucous polyp of cervix Abnormal ultrasound of endometrium Nonspecific (abnormal) findings on radiological and other examination of genitourinary organs documented in this encounter [facility] note* Diagnosis Encounter for subsequent annual wellness [...] heart failure (CMS/HCC) Chronic atrial fibrillation (HCC) ([facility]/HCC) Atrial fibrillation Benign essential HTN (CMS/HCC) Coronary arteriosclerosis (CMS/HCC) Coronary atherosclerosis of unspecified type of vessel, [place] or graft Type 2 diabetes mellitus without complications (CMS/HCC) Type 2 diabetes mellitus without complication, without long-term current use of insulin (CMS/HCC)- Primary Acute metabolic encephalopathy Type 2 diabetes mellitus with diabetic neuropathy, without long-term current use of insulin (CMS/HCC) Chronic atrial fibrillation (HCC) ([facility]/HCC) Atrial fibrillation Benign essential HTN (CMS/HCC) Chronic diastolic congestive heart failure (CMS/HCC) Acute cholecystitis Thickened endometrium Nonspecific (abnormal) findings on radiological and other examination of genitourinary organs Acute gastric ulcer without hemorrhage or perforation Acute gastric ulcer without mention of hemorrhage, perforation, or obstruction Non-recurrent acute suppurative otitis media of right ear without spontaneous rupture of tympanic membrane- Primary Acute non-recurrent sinusitis of other sinus Thickened endometrium Nonspecific (abnormal) findings on radiological and other examination of genitourinary organs Thickened endometrium- Primary Nonspecific (abnormal) findings on radiological and other examination of genitourinary organs Benign essential HTN (CMS/HCC)- Primary Type 2 diabetes mellitus with diabetic neuropathy, unspecified (CMS/HCC) Type 2 diabetes mellitus with diabetic peripheral angiopathy without gangrene (CMS/HCC) Chronic diastolic (congestive) heart failure (CMS/HCC) Chronic atrial fibrillation, unspecified (CMS/HCC) Delirium due to another medical condition Endocervical polyp Mucous polyp of cervix Abnormal ultrasound of endometrium Endometrial polyp Polyp of corpus uteri Thickened endometrium Nonspecific (abnormal) findings on radiological and other examination of genitourinary organs Type 2 diabetes mellitus without complication, without long-term current use of insulin (CMS/HCC) Vitamin B12 deficiency Other B-complex deficiencies Other thrombophilia (CMS/HCC) documented in this encounter [facility] note* Diagnosis Atrial fibrillation, unspecified type (HCC) Diastolic heart failure, unspecified HF chronicity (HCC) Atherosclerosis of [place] coronary artery without angina pectoris, unspecified whether [place] or transplanted heart Right leg weakness Other musculoskeletal symptoms referable to limbs HLD (hyperlipidemia) Other and unspecified hyperlipidemia Foot drop, right foot Benign essential HTN Essential hypertension, benign Constipation Unspecified constipation Altered mental status- Primary Altered mental status, unspecified altered mental status type Lower abdominal pain Abdominal pain, other specified site Decreased appetite Anorexia Nephrolithiasis Calculus of kidney Biliary calculus of other site without obstruction Endometrial hyperplasia Endometrial hyperplasia, unspecified Abdominal pain Abdominal pain, unspecified site Malnutrition of moderate degree (HCC) Malnutrition of moderate degree Cellulitis of foot Cellulitis and abscess of foot, except toes Weight loss Loss of weight Diarrhea Spinal stenosis Spinal stenosis, unspecified region other than cervical Atrial fibrillation (HCC) Atrial fibrillation 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 - Risks, benefits, and alternatives discussed with the patient. Risks including, but not limited to: bleeding, infection, injury to nearby structures (highest risk to bowel, bladder), uterine perforation as well as surgical risks of DVT, PE, ME, . All questions and concerns were addressed. [...] weeks. Orders: SURGICAL REQUEST - ELECTIVE (05/2020) [facility]* Diagnosis Atrial fibrillation, unspecified type (HCC) Diastolic heart failure, unspecified HF chronicity (HCC) Atherosclerosis of [place] coronary artery without angina pectoris, unspecified whether [place] or transplanted heart Right leg weakness Other musculoskeletal symptoms referable to limbs HLD (hyperlipidemia) Other and unspecified hyperlipidemia Foot drop, right foot Benign essential HTN Essential hypertension, benign Constipation Unspecified constipation Altered mental status- Primary Altered mental status, unspecified altered mental status type Lower abdominal pain Abdominal pain, other specified site Decreased appetite Anorexia Nephrolithiasis Calculus of kidney Biliary calculus of other site without obstruction Endometrial hyperplasia Endometrial hyperplasia, unspecified Abdominal pain Abdominal pain, unspecified site Malnutrition of moderate degree (HCC) Malnutrition of moderate degree Cellulitis of foot Cellulitis and abscess of foot, except toes Weight loss Loss of weight Diarrhea Spinal stenosis Spinal stenosis, unspecified region other than cervical Atrial fibrillation (HCC) Atrial fibrillation 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 Delirium due to another medical condition Delirium due to conditions classified elsewhere Vitamin B12 deficiency Other B-complex deficiencies Endometrial polyp- Primary Polyp of corpus uteri Pre-op evaluation- Primary Preoperative examination, unspecified Benign essential HTN Essential hypertension, benign Type 2 diabetes mellitus with other specified complication, without long-term current use of insulin (HCC) Paroxysmal atrial fibrillation (HCC) Atrial fibrillation 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 Other hyperlipidemia Endometrial polyp Polyp of corpus uteri * Assessment & Plan Note - Maxine Singh APRN.CNS - 11/15/2024 3:46 PM EST Associated Problem(s): HLD (hyperlipidemia) Assessment: takes Vic Stewart stable * Assessment & Plan Note - Maxine Singh APRN.CNS - 11/15/2024 3:46 PM EST Associated Problem(s): DM type 2 (diabetes mellitus, type 2) (HCC) Assessment: takes Metformin,Glipizide currently stable Glucose Date Value Ref Range Status 10/20/2024 135 (H) 74 - 99 mg/dL Final Comment: The [place] [employer] (ADA) provides guidance for cutoff values for fasting glucose andrandom glucose. The ADA defines fasting as no [...] Standards of Medical Care in Diabetes 2016, [place] [employer]. Diabetes Care. 2016.39(Suppl 1). * Assessment & Plan Note - Maxine Singh APRN.CNS - 11/15/2024 3:45 PM EST Associated Problem(s): CAD (coronary artery disease) Assessment: had LAD stent placed 2006 followed per [facility] Dr. Roberson * Assessment & Plan Note - Maxine Singh APRN.CNS - 11/15/2024 3:44 PM EST Associated Problem(s): Benign essential HTN Assessment: takes Lisinopril,Metoprolol,stable BP 147/56 taken at [facility] visit 11/15/24 * Assessment & Plan Note - Maxine Singh APRN.CNS - 11/15/2024 3:43 PM EST Associated Problem(s): Atrial fibrillation (HCC) Assessment: takes Eliquis daily, will stop 2 days pre op,currently stable documented in this encounter [facility] note* Diagnosis Atrial fibrillation, unspecified type (HCC) Diastolic heart failure, unspecified HF chronicity (HCC) Atherosclerosis of [place] coronary artery without angina pectoris, unspecified whether [place] or transplanted heart Right leg weakness Other musculoskeletal symptoms referable to limbs HLD (hyperlipidemia) Other and unspecified hyperlipidemia Foot drop, right foot Benign essential HTN Essential hypertension, benign Constipation Unspecified constipation Altered mental status- Primary Altered mental status, unspecified altered mental status type Lower abdominal pain Abdominal pain, other specified site Decreased appetite Anorexia Nephrolithiasis Calculus of kidney Biliary calculus of other site without obstruction Endometrial hyperplasia Endometrial hyperplasia, unspecified Abdominal pain Abdominal pain, unspecified site Malnutrition of moderate degree (HCC) Malnutrition of moderate degree Cellulitis of foot Cellulitis and abscess of foot, except toes Weight loss Loss of weight Diarrhea Spinal stenosis Spinal stenosis, unspecified region other than cervical Atrial fibrillation (HCC) Atrial fibrillation 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 Delirium due to another medical condition Delirium due to conditions classified elsewhere Vitamin B12 deficiency Other B-complex deficiencies Endometrial polyp- Primary Polyp of corpus uteri Pre-op evaluation- Primary Preoperative examination, unspecified Benign essential HTN Essential hypertension, benign Type 2 diabetes mellitus with other specified complication, without long-term current use of insulin (HCC) Paroxysmal atrial fibrillation (HCC) Atrial fibrillation 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 Other hyperlipidemia Pre-op evaluation Preoperative examination, unspecified Benign essential HTN Essential hypertension, benign Type 2 diabetes mellitus with other specified complication, without long-term current use of insulin (HCC) Paroxysmal atrial fibrillation (HCC) Atrial fibrillation 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 Other hyperlipidemia Endometrial polyp Polyp of corpus uteri [facility]* Diagnosis Encounter for subsequent annual wellness [...] Coronary atherosclerosis of unspecified type of vessel, [place] or graft Type 2 diabetes mellitus without complications (CMS/HCC) Type 2 diabetes mellitus without complication, without long-term current use of insulin (CMS/HCC)- Primary Acute metabolic encephalopathy Type 2 diabetes mellitus with diabetic neuropathy, without long-term current use of insulin (CMS/HCC) Chronic atrial fibrillation (HCC) (CMS/HCC) Atrial fibrillation Benign essential HTN (CMS/HCC) Chronic diastolic congestive heart failure (CMS/HCC) Acute cholecystitis Thickened endometrium Nonspecific (abnormal) findings on radiological and other examination of genitourinary organs Acute gastric ulcer without hemorrhage or perforation Acute gastric ulcer without mention of hemorrhage, perforation, or obstruction Non-recurrent acute suppurative otitis media of right ear without spontaneous rupture of tympanic membrane- Primary Acute non-recurrent sinusitis of other sinus Thickened endometrium Nonspecific (abnormal) findings on radiological and other examination of genitourinary organs Thickened endometrium- Primary Nonspecific (abnormal) findings on radiological and other examination of genitourinary organs Benign essential HTN (CMS/HCC)- Primary Type 2 diabetes mellitus with diabetic neuropathy, unspecified (CMS/HCC) Type 2 diabetes mellitus with diabetic peripheral angiopathy without gangrene (CMS/HCC) Chronic diastolic (congestive) heart failure (CMS/HCC) Chronic atrial fibrillation, unspecified (CMS/HCC) Delirium due to another medical condition Endocervical polyp Mucous polyp of cervix Abnormal ultrasound of endometrium Endometrial polyp Polyp of corpus uteri Thickened endometrium Nonspecific (abnormal) findings on radiological and other examination of genitourinary organs Type 2 diabetes mellitus without complication, without long-term current use of insulin (CMS/HCC) Vitamin B12 deficiency Other B-complex deficiencies Other thrombophilia (CMS/HCC) Acute gastric ulcer without hemorrhage or perforation Acute gastric ulcer without mention of hemorrhage, perforation, or obstruction documented in this encounter [facility]Evaluation [facility]* Diagnosis Encounter for subsequent annual [...] heart failure (CMS/HCC) Chronic atrial fibrillation (HCC) (/HCC) Atrial fibrillation Benign essential HTN (CMS/HCC) Coronary arteriosclerosis (/) Coronary atherosclerosis of unspecified type of vessel, [place] or graft Type 2 diabetes mellitus without complications (/) Type 2 diabetes mellitus without complication, without long-term current use of insulin (/HCC)- Primary Acute metabolic encephalopathy Type 2 diabetes mellitus with diabetic neuropathy, without long-term current use of insulin (/HCC) Chronic atrial fibrillation (HCC) ([facility]/HCC) Atrial fibrillation Benign essential HTN (CMS/HCC) Chronic diastolic congestive heart failure (CMS/HCC) Acute cholecystitis Thickened endometrium Nonspecific (abnormal) findings on radiological and other examination of genitourinary organs Acute gastric ulcer without hemorrhage or perforation Acute gastric ulcer without mention of hemorrhage, perforation, or obstruction Non-recurrent acute suppurative otitis media of right ear without spontaneous rupture of tympanic membrane- Primary Acute non-recurrent sinusitis of other sinus Thickened endometrium Nonspecific (abnormal) findings on radiological and other examination of genitourinary organs Thickened endometrium- Primary Nonspecific (abnormal) findings on radiological and other examination of genitourinary organs Benign essential HTN (CMS/HCC)- Primary Type 2 diabetes mellitus with diabetic neuropathy, unspecified (CMS/HCC) Type 2 diabetes mellitus with diabetic peripheral angiopathy without gangrene (CMS/HCC) Chronic diastolic (congestive) heart failure (CMS/HCC) Chronic atrial fibrillation, unspecified (CMS/HCC) Delirium due to another medical condition Endocervical polyp Mucous polyp of cervix Abnormal ultrasound of endometrium Endometrial polyp Polyp of corpus uteri Thickened endometrium Nonspecific (abnormal) findings on radiological and other examination of genitourinary organs Type 2 diabetes mellitus without complication, without long-term current use of insulin ([facility]/HCC) Vitamin B12 deficiency Other B-complex deficiencies Other thrombophilia ([facility]) Type 2 diabetes mellitus without complication, without long-term current use of insulin ([facility])- Primary Type 2 diabetes mellitus with diabetic neuropathy, without long-term current use of insulin ([facility]) Acute gastric ulcer without hemorrhage or perforation Acute gastric ulcer without mention of hemorrhage, perforation, or obstruction Benign essential HTN ([facility]) Chronic atrial fibrillation, unspecified ([facility]) Type 2 diabetes mellitus with diabetic peripheral angiopathy without gangrene, without long-term current use of insulin ([facility]) Other thrombophilia ([facility]) Mixed hyperlipidemia ([facility]) Mixed hyperlipidemia Lower abdominal pain Abdominal pain, other specified site Thickened endometrium Nonspecific (abnormal) findings on radiological and other examination of genitourinary organs [facility] Atrial fibrillation, unspecified type (HCC) Diastolic heart failure, unspecified HF chronicity (HCC) Atherosclerosis of [place] coronary artery without angina pectoris, unspecified whether [place] or transplanted heart Right leg weakness Other musculoskeletal symptoms referable to limbs HLD (hyperlipidemia) Other and unspecified hyperlipidemia Foot drop, right foot Benign essential HTN Essential hypertension, benign Constipation Unspecified constipation Altered mental status- Primary Altered mental status, unspecified altered mental status type Lower abdominal pain Abdominal pain, other specified site Decreased appetite Anorexia Nephrolithiasis Calculus of kidney Biliary calculus of other site without obstruction Endometrial hyperplasia Endometrial hyperplasia, unspecified Abdominal pain Abdominal pain, unspecified site Malnutrition of moderate degree (HCC) Malnutrition of moderate degree Cellulitis of foot Cellulitis and abscess of foot, except toes Weight loss Loss of weight Diarrhea Spinal stenosis Spinal stenosis, unspecified region other than cervical Atrial fibrillation (HCC) Atrial fibrillation 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 Delirium due to another medical condition Delirium due to conditions classified elsewhere Vitamin B12 deficiency Other B-complex deficiencies Endometrial polyp- Primary Polyp of corpus uteri Pre-op evaluation- Primary Preoperative examination, unspecified Benign essential HTN Essential hypertension, benign Type 2 diabetes mellitus with other specified complication, without long-term current use of insulin (HCC) Paroxysmal atrial fibrillation (HCC) Atrial fibrillation 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 Other hyperlipidemia Postop check- Primary Follow-up examination, following unspecified surgery [facility]* Diagnosis Atrial fibrillation, unspecified type (HCC) Diastolic heart failure, unspecified HF chronicity (HCC) Atherosclerosis of [place] coronary artery without angina pectoris, unspecified whether [place] or transplanted heart Right leg weakness Other musculoskeletal symptoms referable to limbs HLD (hyperlipidemia) Other and unspecified hyperlipidemia Foot drop, right foot Benign essential HTN Essential hypertension, benign Constipation Unspecified constipation Altered mental status, unspecified altered mental status type Lower abdominal pain Abdominal pain, other specified site Decreased appetite Anorexia Nephrolithiasis Calculus of kidney Biliary calculus of other site without obstruction Endometrial hyperplasia Endometrial hyperplasia, unspecified Abdominal pain Abdominal pain, unspecified site Malnutrition of moderate degree (HCC) Malnutrition of moderate degree Cellulitis of foot Cellulitis and abscess of foot, except toes Weight loss Loss of weight Diarrhea Spinal stenosis Spinal stenosis, unspecified region other than cervical Atrial fibrillation (HCC) Atrial fibrillation 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 Delirium due to another medical condition Delirium due to conditions classified elsewhere Vitamin B12 deficiency Other B-complex deficiencies Endometrial polyp- Primary Polyp of corpus uteri Pre-op evaluation- Primary Preoperative examination, unspecified Benign essential HTN Essential hypertension, benign Type 2 diabetes mellitus with other specified complication, without long-term current use of insulin (HCC) Paroxysmal atrial fibrillation (HCC) Atrial fibrillation 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 Other hyperlipidemia Calculus of gallbladder without cholecystitis without obstruction- Primary Calculus of gallbladder without mention of cholecystitis or obstruction Unintentional weight loss Loss of weight [facility]* Diagnosis Encounter for subsequent annual wellness visit (AWV) in Medicare patient- Primary Benign essential HTN (CMS/HCC) Chronic atrial fibrillation (HCC) ([facility]/HCC) Atrial fibrillation Type 2 diabetes mellitus without complication, without long-term current use of insulin Mixed hyperlipidemia (CMS/HCC) Mixed hyperlipidemia Abnormal thyroid blood test Type 2 diabetes mellitus without complication, without long-term current use of insulin- Primary Other thrombophilia Type 2 diabetes mellitus with diabetic neuropathy, unspecified (CMS/HCC) Peripheral vascular disease, unspecified (CMS/HCC) Peripheral vascular disease, unspecified Unspecified diastolic (congestive) heart failure (CMS/HCC) Chronic atrial fibrillation (HCC) (CMS/HCC) Atrial fibrillation Benign essential HTN (CMS/HCC) Coronary arteriosclerosis (CMS/HCC) Coronary atherosclerosis of unspecified type of vessel, [place] or graft Type 2 diabetes mellitus without complications Type 2 diabetes mellitus without complication, without long-term current use of insulin- Primary Acute metabolic encephalopathy Type 2 diabetes mellitus with diabetic neuropathy, without long-term current use of insulin (CMS/HCC) Chronic atrial fibrillation (HCC) (CMS/HCC) Atrial fibrillation Benign essential HTN (CMS/HCC) Chronic diastolic congestive heart failure (CMS/HCC) Acute cholecystitis Thickened endometrium Nonspecific (abnormal) findings on radiological and other examination of genitourinary organs Acute gastric ulcer without hemorrhage or perforation Acute gastric ulcer without mention of hemorrhage, perforation, or obstruction Non-recurrent acute suppurative otitis media of right ear without spontaneous rupture of tympanic membrane- Primary Acute non-recurrent sinusitis of other sinus Thickened endometrium Nonspecific (abnormal) findings on radiological and other examination of genitourinary organs Thickened endometrium- Primary Nonspecific (abnormal) findings on radiological and other examination of genitourinary organs Benign essential HTN (CMS/HCC)- Primary Type 2 diabetes mellitus with diabetic neuropathy, unspecified (CMS/HCC) Type 2 diabetes mellitus with diabetic peripheral angiopathy without gangrene (CMS/HCC) Chronic diastolic (congestive) heart failure Chronic atrial fibrillation, unspecified (CMS/HCC) Delirium due to another medical condition Endocervical polyp Mucous polyp of cervix Abnormal ultrasound of endometrium Endometrial polyp Polyp of corpus uteri Thickened endometrium Nonspecific (abnormal) findings on radiological and other examination of genitourinary organs Type 2 diabetes mellitus without complication, without long-term current use of insulin Vitamin B12 deficiency Other B-complex deficiencies Other thrombophilia Type 2 diabetes mellitus without complication, without long-term current use of insulin- Primary Type 2 diabetes mellitus with diabetic neuropathy, without long-term current use of insulin (CMS/HCC) Acute gastric ulcer without hemorrhage or perforation Acute gastric ulcer without mention of hemorrhage, perforation, or obstruction Benign essential HTN (CMS/HCC) Chronic atrial fibrillation, unspecified (CMS/HCC) Type 2 diabetes mellitus with diabetic peripheral angiopathy without gangrene, without long-term current use of insulin (CMS/HCC) Other thrombophilia Mixed hyperlipidemia (CMS/HCC) Mixed hyperlipidemia Lower abdominal pain Abdominal pain, other specified site Thickened endometrium Nonspecific (abnormal) findings on radiological and other examination of genitourinary organs Benign essential HTN (CMS/HCC)- Primary Type 2 diabetes mellitus without complication, without long-term current use of insulin Mixed hyperlipidemia (CMS/HCC) Mixed hyperlipidemia Vitamin B12 deficiency Other B-complex deficiencies documented in this encounter [facility]* Diagnosis Encounter for subsequent annual wellness visit (AWV) in Medicare patient- Primary Benign essential HTN (CMS/HCC) Chronic atrial fibrillation (HCC) ([facility]/HCC) Atrial fibrillation Type 2 diabetes mellitus without complication, without long-term current use of insulin Mixed hyperlipidemia (CMS/HCC) Mixed hyperlipidemia Abnormal thyroid blood test Type 2 diabetes mellitus without complication, without long-term current use of insulin- Primary Other thrombophilia Type 2 diabetes mellitus with diabetic neuropathy, unspecified (CMS/HCC) Peripheral vascular disease, unspecified (CMS/HCC) Peripheral vascular disease, unspecified Unspecified diastolic (congestive) heart failure (CMS/HCC) Chronic atrial fibrillation (HCC) ([facility]/HCC) Atrial fibrillation Benign essential HTN (CMS/HCC) Coronary arteriosclerosis ([facility]/HCC) Coronary atherosclerosis of unspecified type of vessel, [place] or graft Type 2 diabetes mellitus without complications Type 2 diabetes mellitus without complication, without long-term current use of insulin- Primary Acute metabolic encephalopathy Type 2 diabetes mellitus with diabetic neuropathy, without long-term current use of insulin (CMS/HCC) Chronic atrial fibrillation (HCC) ([facility]/HCC) Atrial fibrillation Benign essential HTN (CMS/HCC) Chronic diastolic congestive heart failure ([facility]/HCC) Acute cholecystitis Thickened endometrium Nonspecific (abnormal) findings on radiological and other examination of genitourinary organs Acute gastric ulcer without hemorrhage or perforation Acute gastric ulcer without mention of hemorrhage, perforation, or obstruction Non-recurrent acute suppurative otitis media of right ear without spontaneous rupture of tympanic membrane- Primary Acute non-recurrent sinusitis of other sinus Thickened endometrium Nonspecific (abnormal) findings on radiological and other examination of genitourinary organs Thickened endometrium- Primary Nonspecific (abnormal) findings on radiological and other examination of genitourinary organs Benign essential HTN (CMS/HCC)- Primary Type 2 diabetes mellitus with diabetic neuropathy, unspecified (CMS/HCC) Type 2 diabetes mellitus with diabetic peripheral angiopathy without gangrene (CMS/HCC) Chronic diastolic (congestive) heart failure Chronic atrial fibrillation, unspecified (CMS/HCC) Delirium due to another medical condition Endocervical polyp Mucous polyp of cervix Abnormal ultrasound of endometrium Endometrial polyp Polyp of corpus uteri Thickened endometrium Nonspecific (abnormal) findings on radiological and other examination of genitourinary organs Type 2 diabetes mellitus without complication, without long-term current use of insulin Vitamin B12 deficiency Other B-complex deficiencies Other thrombophilia Type 2 diabetes mellitus without complication, without long-term current use of insulin- Primary Type 2 diabetes mellitus with diabetic neuropathy, without long-term current use of insulin (CMS/HCC) Acute gastric ulcer without hemorrhage or perforation Acute gastric ulcer without mention of hemorrhage, perforation, or obstruction Benign essential HTN (CMS/HCC) Chronic atrial fibrillation, unspecified (CMS/HCC) Type 2 diabetes mellitus with diabetic peripheral angiopathy without gangrene, without long-term current use of insulin (CMS/HCC) Other thrombophilia Mixed hyperlipidemia (CMS/HCC) Mixed hyperlipidemia Lower abdominal pain Abdominal pain, other specified site Thickened endometrium Nonspecific (abnormal) findings on radiological and other examination of genitourinary organs Encounter for subsequent annual wellness visit (AWV) in Medicare patient- Primary Type 2 diabetes mellitus with diabetic neuropathy, without long-term current use of insulin ([facility]/HCC) Benign essential HTN (CMS/HCC) Chronic atrial fibrillation, unspecified (CMS/HCC) Chronic diastolic (congestive) heart failure Type 2 diabetes mellitus with diabetic peripheral angiopathy without gangrene, without long-term current use of insulin (CMS/HCC) Foot drop, right foot Type 2 diabetes mellitus without complication, without long-term current use of insulin Mixed hyperlipidemia (CMS/HCC) Mixed hyperlipidemia Type 2 diabetes mellitus without complications Acute gastric ulcer without hemorrhage or perforation Acute gastric ulcer without mention of hemorrhage, perforation, or obstruction documented in this encounter [facility] N[facility] - Reported* Type Description Date Medical History hypertension Medical History diabetes mallitus Medical History hypercholesterolemia Medical History mitral valve regurgitation Medical History Heart Failure/Diastolic Surgical History blood clot Hospitalization History See Above SeptRx Other reason for referral (narrative)* Outpatient Procedure (Routine) - Authorized Specialty Diagnoses / Procedures Referred By Oscar t Referred To Contact [facility] Diagnoses Thickened endometrium Procedures ENDOMETRIAL BIOPSY ENDOMETRIAL BX W/WO ENDOCERVIX BX W/O DILAT SPX Luciana Green, [address] [address] [facility] [place] [address] [place], [place] [address] [address] Referral ID Status Reason Start Date Expiration Date Visits Requested Visits Authorized [id number] Authorized Auto-Generat ed Referral 10/24/2024 10/24/2025 1 1 * Diagnostic Procedure Only (Routine) - Authorized Specialty Diagnoses / Procedures Referred By Oscar macias Referred To Contact [facility] Diagnoses Thickened endometrium Procedures SONOHYSTEROGRAPHY (SIS) US WHI SALINE INFUS SONOHYSTEROGRAPHY W/[place] [address] [place] [address] [address] [facility] [address] [place] [address] Referral ID Status Reason Start Date Expiration Date Visits Requested Visits Authorized [id number] Authorized Auto-Generat ed Referral 10/24/2024 10/24/2025 1 1 [facility] Chief Complaint and Reason for Visit Chief [...] Documents on File Type Date Recorded Patient Inspector Machine Cut Glass Expl anation Advance Directive(s) 03/29/2022 8:42 PM Latest Code Status on File Code Status Date Activated Date Inactivated Comments Full Code 03/28/2022 5:55 PM 04/07/2022 4:54 PM Full Code Order Discussed With: Patient Date Activated Date Inactivated Comments 03/28/2022 5:55 PM 04/07/2022 4:54 PM Question Answer Comments Full Code Order Discussed With: Patient Date Activated Date Inactivated Comments 10/16/2024 8:19 PM 10/21/2024 9:41 PM Question Answer Comments Full Code Order Discussed With: Discussion Not M edically Appropriate Date Activated Date Inactivated Comments 03/28/2022 5:55 PM 04/07/2022 4:54 PM Question Answer Comments Full Code Order Discussed With: Patient Date Activated Date Inactivated Comments 10/16/2024 8:19 PM 10/21/2024 9:41 PM Question Answer Comments Full Code Order Discussed With: Discussion Not M edically Appropriate Date Activated Date Inactivated Comments 03/28/2022 5:55 PM 04/07/2022 4:54 PM Question Answer Comments Full Code Order Discussed With: Patient Family History No Family History Records Found Relationship Condition Age at Onset Recorded Date/T danis father Myocardial infarction Unknown Coronary artery disease Unknown Not Specified Myocardial infarction Unknown daughter Multiple sclerosis Unknown Summary Purpose Additional Source Comments Care Teams (unrecognized sec tion and content) Team Status: Inactive Member Role Status Dates Atul Vera MD Attending Provider Active NON STAFF Primary Care Provider Active Team Status: Active Member Role Status Dates NON STAFF Primary Care Provider Active Team Status: Inactive Member Role Status Dates NON STAFF Primary Care Provider Active Atul Vera MD Attending Provider Active Team Status: Active Member Role Status Dates Howard Stauffer DO Emergency Provider Active Galindo J Aichholz Primary Care Provider Active Perlita Braxton MD Admit Provider, Attending Kamari mooney Active Team Status: Active Member Role Status Dates Galindo J Aichholz Primary Care Provider Active Team Status: Inactive Member Role Status Dates Howard Stauffer DO Emergency Provider Active Galindo J Aichholz Primary Care Provider Active Perlita Braxton MD Admit Provider Active Colby Astorga DO Other Provider Active Rupert Anthony MD Attending Provider Active Team Status: Inactive Member Role Status Dates Galindo J Aichholz Primary Care Provider Active Kingston Gao MD Admit Provider, Attending Provider A ctshaina Dowling RN Other Provider Active Rachna Winston , ELFEGO Other Provider Active Giselle Wahl , ELFEGO Other Provider Active Gloria Moise , ELFEGO Other Provider Active Lucia Marc RN Other Provider Active Courtney Campbell RN Other Provider Active Cindy Buck RN Other Provider Active Cyndee Aguirre MD Other Provider Active Shadi Chahal MD Other Provider Active Galindo M Dials , CNA CAREGIVER Other Provider Active Shelby Landrum , DO Other Provider Active Kieran Scott MD Other Provider Active Jayesh Clark , DO Other Provider Active Justyn Spann MD Other Provider Active Mayra Saha MD Other Provider Active Selma Barkley , ANP-BC Other Provider Active Lizette Pickard MD Other Provider Active Poli Collins MD Other Provider Active Andrea Muñoz MD Other Provider Active Jay Barrientos MD Other Provider Active Annelise Vila , DO Other Provider Active Nitin Patel MD Other Provider Active Abilio Shafer MD Other Provider Active Gladys Cash MD Other Provider Active Dwight Kelley MD Other Provider Active Debbie Avalos , PIECE GOODS CLERK-C Other Provider Active Saulo Dukes MD Other [...] Team Status: Inactive Member Role Status Dates Atul Vera MD Attending Provider Active Galindo Miller Primary Care Provider Active Photographic Laboratory Technician Relationship Specialty Start Date End Date Mike Steiner MD PCP - General Family Medicine 08/09/23 Galindo Miller NP [address] [place] [phone] Nurse Practitioner Family Medicine 08/09/23 Photographic Laboratory Technician Relationship Specialty Start Date End Date Mike Steiner MD PCP - General Family Medicine 08/09/23 Galindo Miller NP [address] [place] [address] Nurse Practitioner Family Medicine 08/09/23 Photographic Laboratory Technician Relationship Specialty Start Date End Date Mike Steiner MD [address] [place] [phone] PCP - General Family Medicine 08/20/24 Galindo Miller NP [address] [place] [address] Nurse Practitioner Family Medicine 08/09/23 Photographic Laboratory Technician Relationship Specialty Start Date End Date Mike Steiner MD [address] [place] [phone] PCP - General Family Medicine 08/20/24 Galindo Miller NP [address] [place] [address] Nurse Practitioner Family Medicine 08/09/23 Photographic Laboratory Technician Relationship Specialty Start Date End Date Mike Steiner MD [address] [place] [phone] PCP - General Family Medicine 08/20/24 Galindo Miller NP [address] [place] [address] Nurse Practitioner Family Medicine 08/09/23 Photographic Laboratory Technician Relationship Specialty Start Date End Date Mike Steiner MD [address] [place] [phone] PCP - General Family Medicine 08/20/24 Galindo Miller NP [address] [place] [address] Nurse Practitioner Family Medicine 08/09/23 Photographic Laboratory Technician Relationship Specialty Start Date End Date Mike Steiner MD [address] [place] [phone] PCP - General Family Medicine 08/20/24 Galindo Miller NP [address] [place] [address] Nurse Practitioner Family Medicine 08/09/23 Photographic Laboratory Technician Relationship Specialty Start Date End Date Mike Steiner MD [address] [place] [address] PCP - General Family Medicine 08/20/24 Galindo Miller NP [address] [place] [address] Nurse Practitioner Family Medicine 08/09/23 Photographic Laboratory Technician Relationship Specialty Start Date End Date Mike Steiner MD [address] [place] [phone] PCP - General Family Medicine 08/20/24 Galindo Miller NP [address] [place] [address] Nurse Practitioner Family Medicine 08/09/23 Photographic Laboratory Technician Relationship Specialty Start Date End Date Mike Steiner MD [address] [place] [phone] PCP - General Family Medicine 08/20/24 Galindo Miller NP [address] [place] [address] Nurse Practitioner Family Medicine 08/09/23 Photographic Laboratory Technician Relationship Specialty Start Date End Date Mike Steiner MD [address] [place] [phone] PCP - General Family Medicine 08/20/24 Galindo Miller NP [address] [place] [address] Nurse Practitioner Family Medicine 08/09/23 Photographic Laboratory Technician Relationship Specialty Start Date End Date Galindo Miller LAUNDRY AIDE [address] [place] [address] PCP - General Family Medicine 10/16/24 Photographic Laboratory Technician Relationship Specialty Start Date End Date Mike Steiner MD [address] [place] [phone] PCP - General Family Medicine 08/20/24 Galindo Miller NP [address] [place] [address] Nurse Practitioner Family Medicine 08/09/23 Photographic Laboratory Technician Relationship Specialty Start Date End Date Galindo Miller LAUNDRY AIDE [address] [place] [address] PCP - General Family Medicine 10/16/24 Photographic Laboratory Technician Relationship Specialty Start Date End Date Galindo Miller, LEXI [address] [place] [address] PCP - General Family Medicine 10/16/24 Photographic Laboratory Technician Relationship Specialty Start Date End Date Galindo Miller, LAUNDRY AIDE [address] [place] [address] PCP - General Family Medicine 10/16/24 Photographic Laboratory Technician Relationship Specialty Start Date End Date Mike Steiner MD [address] [place] [phone] PCP - General Family Medicine 08/20/24 Galindo Miller NP [address] [place] [phone] Nurse Practitioner Family Medicine 08/09/23 Photographic Laboratory Technician Relationship Specialty Start Date End Date Mike Steiner MD [address] [place] [phone] PCP - General Family Medicine 08/20/24 Galindo Miller NP [address] [place] [phone] Nurse Practitioner Family Medicine 08/09/23 Photographic Laboratory Technician Relationship Specialty Start Date End Date Mike Steiner MD [address] [place] [phone] PCP - General Family Medicine 08/20/24 Galindo Miller NP [address] [place] [address] Nurse Practitioner Family Medicine 08/09/23 Photographic Laboratory Technician Relationship Specialty Start Date End Date Galindo Miller CNP [address] [place] [address] PCP - General Family Medicine 10/16/24 Photographic Laboratory Technician Relationship Specialty Start Date End Date Galindo Miller CNP [address] [place] [address] PCP - General Family Medicine 10/16/24 Photographic Laboratory Technician Relationship Specialty Start Date End Date Galindo Miller CNP [address] [place] [address] PCP - General Family Medicine 10/16/24 Photographic Laboratory Technician Relationship Specialty Start Date End Date Galindo Miller LAUNDRY AIDE [address] [place] [address] PCP - General Family Medicine 10/16/24 Photographic Laboratory Technician Relationship Specialty Start Date End Date Galindo Miller CNP [address] [place] [address] PCP - General Family Medicine 10/16/24 Photographic Laboratory Technician Relationship Specialty Start Date End Date Galindo Miller CNP [address] [place] [address] PCP - General Family Medicine 10/16/24 Photographic Laboratory Technician Relationship Specialty Start Date End Date Galindo Miller, LAUNDRY AIDE [address] [place] [address] PCP - General Family Medicine 10/16/24 Photographic Laboratory Technician Relationship Specialty Start Date End Date Mike Steiner MD [address] [place] [address] PCP - General Family Medicine 08/20/24 Galindo Miller NP [address] [place] [address] Nurse Practitioner Family Medicine 08/09/23 Photographic Laboratory Technician Relationship Specialty Start Date End Date Mike Steiner MD [address] [place] [address] PCP - General Family Medicine 08/20/24 Gailndo Miller, RONNIE [address] [place] [address] Nurse Practitioner Family Medicine 08/09/23 Photographic Laboratory Technician Relationship Specialty Start Date End Date Galindo Miller, LAUNDRY AIDE [address] [place] [address] PCP - General Family Medicine 10/16/24 Photographic Laboratory Technician Relationship Specialty Start Date End Date Galindo Miller, LAUNDRY AIDE [address] [place] [address] PCP - General Family Medicine 10/16/24 Photographic Laboratory Technician Relationship Specialty Start Date End Date Mike Steiner MD [address] [place] [phone] PCP - General Family Medicine 08/20/24 Galindo Miller NP [address] [place] [address] Nurse Practitioner Family Medicine 08/09/23 Photographic Laboratory Technician Relationship Specialty Start Date End Date Galindo Miller CNP [address] [place] [address] PCP - General Family Medicine 10/16/24 Photographic Laboratory Technician Relationship Specialty Start Date End Date Mike Steiner MD [address] [place] [phone] PCP - General Family Medicine 08/20/24 Galindo Miller NP [address] [place] [address] Nurse Practitioner Family Medicine 08/09/23 Photographic Laboratory Technician Relationship Specialty Start Date End Date Mike Steiner MD [address] [place] [address] PCP - General Family Medicine 08/20/24 Galindo Miller NP [address] [place] [address] Nurse Practitioner Family Medicine 08/09/23 Goals (unrecognized section and content) Goals may be documented in a n alternate sectionGoals may be documented in an alternate sectionGoals may be documented in an alternate sectionNo Information REASON FOR VISIT (unrecogniz ed section and content) Reason Comments Other home health orders r equested Reason Comments Forms [facility] medical liu ter Reason Comments Forms Reason Comments Other [facility] Plan of Ca re 04/17/22 - 06/15/22 Reason Comments General [facility] Reason Comments Post-Op Visit Reason Comments Forms Physician Orders ([place]) - [facility] Reason Comments Forms Other Discharge Physician Orders Reason Comments Other Physical Therapy Rec ertification Note Reason Comments Received Outside Medical Records [facility] Reason Comments Med Refill Reason Comments Diabetes Abdominal Pain Reason Onset Date Comments Med Refill 10/07/2024 Reason Comments Cough Reason Comments Abdominal Pain X6 wks on and off, c hange in mental status x3 days Reason Comments ED Follow-up Endometrial thickeni ng Was in for stomach pain and confusion Reason Comments SIS/EMB Specialty Diagnoses / Procedures Referred By Contac t Referred To Contact [facility] Diagnoses Thickened endometrium Procedures SONOHYSTEROGRAPHY (SIS) US WHI SALINE INFUS SONOHYSTEROGRAPHY W/[place] [address] [place] [address] [place] [address] Referral ID Status Reason Start Date Expiration Date V isits Requested Visits Authorized [id number] Closed Auto-Generate d Referral 10/24/2024 10/24/2025 1 1 Reason Comments Diabetes Reason Comments surgical consult Thickened endometriu m / possible EMB Reason Comments Schedule Surgery Reason Comments Radiology XR Reason Comments Post Op Had polyp removed, b led for 4 to 5 days after Reason Comments Follow Up Reason Comments Medicare Annual Wellness Visit Initial INFORMATION SOURCE (unrecogn ized section and content) [facility] AUTHOR'S ORGANIZ ATION 09/15/2022 [facility] DATE CREATED AUTHOR AUTHOR'S ORGANIZ ATION 11/12/2022 [facility] DATE CREATED AUTHOR AUTHOR'S ORGANIZ ATION 11/19/2024 [facility] DATE CREATED AUTHOR AUTHOR'S ORGANIZ ATION 12/10/2024 [facility] DATE CREATED AUTHOR AUTHOR'S ORGANIZ ATION 01/19/2025 [facility] DATE CREATED AUTHOR AUTHOR'S ORGANIZ ATION 02/19/2025 [facility] EPIC Source Comments (unrecognize d section and content) In the event this informatio n is protected by the Federal Confidentiality of Alcohol and Drug Abuse Patient Records regulations: The Federal rules restrict any use of the information to criminally investigate or prosecute any alcohol or drug abuse patient.[facility] the event this information is protected by the Federal Confidentiality of Alcohol and Drug Abuse Patient Records regulations: The Federal rules restrict any use of the information to criminally investigate or prosecute any alcohol or drug abuse patient.[facility] HealthIn the event this information is protected by the Federal Confidentiality of Alcohol and Drug Abuse Patient Records regulations: The Federal rules restrict any use of the information to criminally investigate or prosecute any alcohol or drug abuse patient.[facility]In the event this information is protected by the Federal Confidentiality of Alcohol and Drug Abuse Patient Records regulations: The Federal rules restrict any use of the information to criminally investigate or prosecute any alcohol or drug abuse patient.[facility]In the event this information is protected by the Federal Confidentiality of Alcohol and Drug Abuse Patient Records regulations: The Federal rules restrict any use of the information to criminally investigate or prosecute any alcohol or drug abuse patient.[facility]In the event this information is protected by the Federal Confidentiality of Alcohol and Drug Abuse Patient Records regulations: The Federal rules restrict any use of the information to criminally investigate or prosecute any alcohol or drug abuse patient.[facility] HealthIn the event this information is protected by the Federal Confidentiality of Alcohol and Drug Abuse Patient Records regulations: The Federal rules restrict any use of the information to criminally investigate or prosecute any alcohol or drug abuse patient.[facility]In the event this information is protected by the Federal Confidentiality of Alcohol and Drug Abuse Patient Records regulations: The Federal rules restrict any use of the information to criminally investigate or prosecute any alcohol or drug abuse patient.[facility]In the event this information is protected by the Federal Confidentiality of Alcohol and Drug Abuse Patient Records regulations: The Federal rules restrict any use of the information to criminally investigate or prosecute any alcohol or drug abuse patient.[facility]In the event this information is protected by the Federal Confidentiality of Alcohol and Drug Abuse Patient Records regulations: The Federal rules restrict any use of the information to criminally investigate or prosecute any alcohol or drug abuse patient.[facility]In the event this information is protected by the Federal Confidentiality of Alcohol and Drug Abuse Patient Records regulations: The Federal rules restrict any use of the information to criminally investigate or prosecute any alcohol or drug abuse patient.[facility] HealthIn the event this information is protected by the Federal Confidentiality of Alcohol and Drug Abuse Patient Records regulations: The Federal rules restrict any use of the information to criminally investigate or prosecute any alcohol or drug abuse patient.[facility] HealthIn the event this information is protected by the Federal Confidentiality of Alcohol and Drug Abuse Patient Records regulations: The Federal rules restrict any use of the information to criminally investigate or prosecute any alcohol or drug abuse patient.[facility] HealthIn the event this information is protected by the Federal Confidentiality of Alcohol and Drug Abuse Patient Records regulations: The Federal rules restrict any use of the information to criminally investigate or prosecute any alcohol or drug abuse patient.[facility] HealthIn the event this information is protected by the Federal Confidentiality of Alcohol and Drug Abuse Patient Records regulations: The Federal rules restrict any use of the information to criminally investigate or prosecute any alcohol or drug abuse patient.[facility]In the event this information is protected by the Federal Confidentiality of Alcohol and Drug Abuse Patient Records regulations: The Federal rules restrict any use of the information to criminally investigate or prosecute any alcohol or drug abuse patient.[facility] HealthIn the event this information is protected by the Federal Confidentiality of Alcohol and Drug Abuse Patient Records regulations: The Federal rules restrict any use of the information to criminally investigate or prosecute any alcohol or drug abuse patient.[facility] HealthIn the event this information is protected by the Federal Confidentiality of Alcohol and Drug Abuse Patient Records regulations: The Federal rules restrict any use of the information to criminally investigate or prosecute any alcohol or drug abuse patient.[facility] HealthIn the event this information is protected by the Federal Confidentiality of Alcohol and Drug Abuse Patient Records regulations: The Federal rules restrict any use of the information to criminally investigate or prosecute any alcohol or drug abuse patient.[facility] HealthIn the event this information is protected by the Federal Confidentiality of Alcohol and Drug Abuse Patient Records regulations: The Federal rules restrict any use of the information to criminally investigate or prosecute any alcohol or drug abuse patient.[facility] HealthIn the event this information is protected by the Federal Confidentiality of Alcohol and Drug Abuse Patient Records regulations: The Federal rules restrict any use of the information to criminally investigate or prosecute any alcohol or drug abuse patient.[facility] HealthIn the event this information is protected by the Federal Confidentiality of Alcohol and Drug Abuse Patient Records regulations: The Federal rules restrict any use of the information to criminally investigate or prosecute any alcohol or drug abuse patient.[facility] HealthIn the event this information is protected by the Federal Confidentiality of Alcohol and Drug Abuse Patient Records regulations: The Federal rules restrict any use of the information to criminally investigate or prosecute any alcohol or drug abuse patient.[facility] HealthIn the event this information is protected by the Federal Confidentiality of Alcohol and Drug Abuse Patient Records regulations: The Federal rules restrict any use of the information to criminally investigate or prosecute any alcohol or drug abuse patient.[facility] HealthIn the event this information is protected by the Federal Confidentiality of Alcohol and Drug Abuse Patient Records regulations: The Federal rules restrict any use of the information to criminally investigate or prosecute any alcohol or drug abuse patient.[facility] HealthIn the event this information is protected by the Federal Confidentiality of Alcohol and Drug Abuse Patient Records regulations: The Federal rules restrict any use of the information to criminally investigate or prosecute any alcohol or drug abuse patient.[facility] HealthIn the event this information is protected by the Federal Confidentiality of Alcohol and Drug Abuse Patient Records regulations: The Federal rules restrict any use of the information to criminally investigate or prosecute any alcohol or drug abuse patient.[facility] FOR RECORDS PERTAINING TO PATIENTS WHO ARE [...] BE BASED ON THE PRIMARY CLINICAL RECORDS. [facility]. provides no warranty or guarantee of the accuracy or completeness of information in this document.
--- NOTE | 2025-04-19 08:38 | XR_ITS ---
The [place] [id number] Patient Name: SAEED JOHNSON MRN: [id number] date: 1940 Sex: F Assigned Patient Location: ER Current Patient Location: ER Accession/Order Number: [id number] Exam Date: 04/19/2025 09:25 Report Date: 04/19/2025 09:25 At the request of: DIPESH SMITH MD Procedure: XR ankle LT min 3V XR ankle LT min 3V 04/19/2025 9:02 AM SIGNS AND SYMPTOMS: Fall, left ankle pain PROTOCOL: Frontal, lateral, and oblique radiographs of the left ankle COMPARISON: None FINDINGS: The ankle mortise is preserved. There is no fracture or dislocation. Soft tissue swelling is noted greatest laterally. XR/XR ankle LT min 3V IMPRESSION: No fracture. Soft tissue swelling is noted greatest laterally. Impression dictated by: Donny Wolf M.D. 04/19/2025 9:25 AM Dictation Location: [place] [address] Electronically authenticated by: [id number] Y Date: 04/19/2025 09:25
--- NOTE | 2025-04-19 08:38 | XR_ITS ---
The [place] [id number] Patient Name: SAEED JOHNSON MRN: [id number] date: 1940 Sex: F Assigned Patient Location: ER Current Patient Location: ER Accession/Order Number: [id number] Exam Date: 04/19/2025 09:26 Report Date: 04/19/2025 09:28 At the request of: DIPESH SMITH MD Procedure: XR foot LT min 3V XR foot LT min 3V 04/19/2025 9:02 AM SIGNS AND SYMPTOMS: Fall, left foot pain PROTOCOL: Frontal, lateral, and oblique radiographs of the left foot COMPARISON: None FINDINGS: There is a minimally displaced fracture of the proximal phalanx of the fifth digit. This is transversely oriented without intra-articular extension. There is narrowing of the first metatarsophalangeal joint. There is soft tissue swelling overlying the ankle. There is evidence of a remote appearing avulsion type injury along the lateral malleolus. XR/XR foot LT min 3V IMPRESSION: There is a minimally displaced fracture of the proximal phalanx of the fifth digit. This is transversely oriented without intra-articular extension. Impression dictated by: Donny Wolf M.D. 04/19/2025 9:28 AM Dictation Location: [place] [address] Electronically authenticated by: [id number] Y Date: 04/19/2025 09:28
--- NOTE | 2025-04-19 08:38 | XR_ITS ---
The [address] [address] Patient Name: SAEED JOHNSON MRN: [id number] date: 1940 Sex: F Assigned Patient Location: ER Current Patient Location: ER Accession/Order Number: [id number] Exam Date: 04/19/2025 09:24 Report Date: 04/19/2025 09:25 At the request of: DIPESH SMITH MD Procedure: XR knee LT 3V XR knee LT 3V 04/19/2025 9:02 AM SIGNS AND SYMPTOMS: Fall, left knee pain PROTOCOL: Frontal, lateral, and oblique radiographs of the left knee COMPARISON: None FINDINGS: There is narrowing of the weightbearing and patellofemoral joint spaces. 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 There is a small joint effusion. There is no fracture or dislocation. Vascular calcifications are present. XR/XR knee LT 3V IMPRESSION: No acute bony injury. 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 There is a small joint effusion. Impression dictated by: Donny Wolf M.D. 04/19/2025 9:25 AM Dictation Location: [place] [address] Electronically authenticated by: [id number] Y Date: 04/19/2025 09:25
--- NOTE | 2025-04-19 09:19 | ED.LOWEXI1 ---
HPI HPI - Extremity Injury (Lower) General Chief Complaint: Extremity Injury, Lower Stated Complaint: LEFT ANKLE PAIN Time Seen by Provider: 04/19/25 08:38 Source: patient Mode of arrival: walk-in Limitations: no limitations History of Present Illness HPI Narrative: The patient 84-year-old came into the ER accompanied by her after she had a fall yesterday. She had no head injury she mentioned that she just fell on her left ankle and foot although she is also complaining of left knee pain Patient was able to stand up and she usually walk with a rollator, the patient have a history of right foot drop Related Data Home Medications ?Medication ?Instructions ?Recorded ?Confirmed apixaban 5 mg tablet (Eliquis) 5 mg PO BID 09/17/24 04/19/25 ezetimibe 10 mg tablet 10 mg PO DAILY 09/17/24 04/19/25 glipizide 5 mg tablet 5 mg PO BID 09/17/24 04/19/25 lisinopril 20 mg tablet 20 mg PO DAILY 09/17/24 04/19/25 metformin 1,000 mg tablet 1,000 mg PO BID 09/17/24 04/19/25 metoprolol succinate 100 mg 100 mg PO DAILY 09/17/24 04/19/25 tablet,extended release 24 hr rosuvastatin 5 mg tablet 5 mg PO BEDTIME 09/17/24 04/19/25 spironolactone 25 mg tablet 12.5 mg PO DAILY 09/17/24 04/19/25 lisinopril 10 mg tablet 10 mg PO DAILY 10/15/24 04/19/25 Held on 04/19/25. Instructions: Doctor's Order pantoprazole 40 mg tablet,delayed 40 mg PO BID 10/15/24 04/19/25 release Previous Rx's ?Medication ?Instructions ?Recorded acetaminophen 650 mg 650 mg PO Q8H PRN pain #20 tabs 04/19/25 tablet,extended release (Tylenol Arthritis Pain) Allergies Allergy/AdvReac Type Severity Reaction Status Date / Time morphine AdvReac Nausea Verified 04/19/25 08:34 Opioid HPI Opioid Management Most Recent Pain and Opioid Data: Last Pain Scale 10 Today, 08:35 Review of Systems ROS Status of ROS 10 or more systems reviewed and unremarkable except as noted in history and below PFSH PFSH Social History Little interest or pleasure in doing things: not at all Feeling down, depressed, or hopeless: not at all Exam Narrative Exam Narrative: Nurses notes and vital signs reviewed and patient is not hypoxic. Left lower extremity; there is tenderness upon palpation of the anterior of the left knee there is no effusion on examination and there is no erythema redness hotness or any signs of infection but the patient have a full range of movement in the left knee although she is complaining of pain, patient also have tenderness upon palpation of the lateral aspect of the foot but most of the edema is around the left lateral malleolus of the ankle No vascular injury detected General: Well-appearing and in no apparent distress. Skin: Warm, dry, no pallor noted. No rash. Head: Normocephalic, atraumatic. Neck: Supple, non-tender. Eye: Pupils are equal, round and EOMI. No scleral icterus. Ears, Nose, Mouth, and Throat: TM are clear, no nasal mucosal hypertrophy. Oral mucosa is moist, no posterior oropharynx erythema, uvula is mid-line Cardiovascular: Regular Rate and Rhythm without murmur, gallop or rub. Respiratory: No accessory muscle use or respiratory distress. Lungs are clear to auscultation, no wheezing, rales or rhonchi Chest Wall: no tenderness Back: No midline thoracic or lumbar vertebral tenderness. No CVA tenderness Constitutional Vital Signs, click to edit/add: Last Vital Signs Temp 99.1 F 04/19/25 08:35 Pulse 62 04/19/25 08:35 Resp 16 04/19/25 08:35 BP 173/66 H 04/19/25 08:35 Pulse Ox 98 04/19/25 08:35 O2 Del Method Room Air 04/19/25 08:35 Course Vital Signs Vital signs: Vital Signs Temperature 99.1 F 04/19/25 08:35 Pulse Rate 62 04/19/25 08:35 Respiratory Rate 16 04/19/25 08:35 Blood Pressure 173/66 H 04/19/25 08:35 Pulse Oximetry 98 04/19/25 08:35 Oxygen Delivery Method Room Air 04/19/25 08:35 Temperature 99.1 F 04/19/25 08:35 Pulse Rate 62 04/19/25 08:35 Respiratory Rate 16 04/19/25 08:35 Blood Pressure 173/66 H 04/19/25 08:35 Pulse Oximetry 98 04/19/25 08:35 Oxygen Delivery Method Room Air 04/19/25 08:35 MDM - Extremity Injury (Lower) MDM Narrative Medical decision making narrative: The patient was not in any significant pain in the ER she did not require any pain Her x-ray of the left knee as well as x-ray of the ankle showed no acute significant pathology with the x-ray of the left foot showed that she have mild displacement of the proximal phalanx of the left fifth toe Patient had a El wrap applied to the left ankle in addition to postop shoes and lima taping of the 4th and 5th toe together Patient was able to stand up with no difficulty and she usually ambulates with her rollator The patient continue to take Tylenol at home The patient is to follow up with primary care physician in next 2-3 days or to return to the emergency department should any of the signs or symptoms worsen or new symptoms develop. The patient agrees with the following Diagnosis and Treatment plan and the patient will be discharged home. Discharge Plan Discharge Chief Complaint: Extremity Injury, Lower Clinical Impression: Fracture of toe, Ankle swelling, Fall Patient Disposition: Home, Self-Care Time of Disposition Decision: 10:17 Condition: Good Prescriptions / Home Meds: New acetaminophen [Tylenol Arthritis Pain] 650 mg tablet extended release 650 mg PO Q8H PRN (Reason: pain) Qty: 20 0RF No Action Eliquis 5 mg tablet 5 mg PO BID ezetimibe 10 mg tablet 10 mg PO DAILY glipizide 5 mg tablet 5 mg PO BID lisinopril 20 mg tablet 20 mg PO DAILY metformin 1,000 mg tablet 1,000 mg PO BID metoprolol succinate 100 mg tablet extended release 24 hr 100 mg PO DAILY rosuvastatin 5 mg tablet 5 mg PO BEDTIME spironolactone 25 mg tablet 12.5 mg PO DAILY pantoprazole 40 mg tablet,delayed release (DR/EC) 40 mg PO BID Rx Instructions: take before morning and evening meal lisinopril 10 mg tablet 10 mg PO DAILY Print Language: Stateless Instructions: Toe Fracture (ED), Fall Prevention (ED) Referrals: Kirstin Miller NP [Primary Care Provider, Family Practice] - 1 week Discharge Date/Time: 04/19/25 10:33
--- NOTE | 2025-04-19 10:15 | PC.NURSE ---
lima tapped fourth and fifth toes, luan bandage applied with post op shoe, pt tolerated well, pms intact pre and post splint application
== END 2025-04-19 10:33 | disposition home or self-care (01) ==
PROVIDERS: Emergency Provider Emergency Medicine; PCP Nurse Practitioner
DX: S92.512A Displaced fracture of proximal phalanx of left lesser toe(s), initial encounter for closed fracture (principal); M25.472 Effusion, left ankle; W18.30XA Fall on same level, unspecified, initial encounter; M25.462 Effusion, left knee; M79.672 Pain in left foot; M25.572 Pain in left ankle and joints of left foot; M25.562 Pain in left knee
CPT/HCPCS: 73562; 73610; 73630; 99284

== ENCOUNTER 2025-05-28 12:37 | Outpatient (OUT) | payer MEDICARE, SELFPAY ==
--- OUTSIDE RECORDS SUMMARY | 2025-05-22 10:30 | XMS_ITS | Encounter Summary ---
Author Organization [facility] Address [address] [place] [address] Care Team Providers Care Range Aide Name Role Phone Kirstin Miller NP Unavailable [phone] Mike Steiner MD Primary Care Provider [phone] Reason for Visit * Reason Comments Diabetes Encounter Details Date Type Department Care Team (Late st Contact Info) Description 05/22/2025 10:30 AM EDT Office Visit [facility] [address] [place] [address] Kirstin Miller, PROGRAM ADMIN [address] [place] [address] Type 2 diabetes mellitus without complication, without long-term current use of insulin (HCC) (Primary Dx); Type 2 diabetes mellitus with diabetic neuropathy, without long-term current use of insulin (HCC); Type 2 diabetes mellitus with diabetic peripheral angiopathy without gangrene, without long-term current use of insulin (HCC); Chronic atrial fibrillation, unspecified (HCC); Benign essential HTN ; Mixed hyperlipidemia ; Encounter for screening mammogram for malignant neoplasm of breast; Type 2 diabetes mellitus without complications (HCC); Acute gastric ulcer without hemorrhage or perforation Social History Tobacco Use Types Packs/Day Years [...] on file documented as of this encounter Last Filed Vital Signs Vital Sign Reading Time Taken Comments Blood Pressure 118/82 05/22/2025 10:32 AM EDT Pulse 65 05/22/2025 10:32 AM EDT Temperature 36.6 C (97.8 F) 05/22/2025 10:32 AM EDT Respiratory Rate 18 05/22/2025 10:32 AM EDT Oxygen Saturation 96% 05/22/2025 10:32 AM EDT Inhaled Oxygen Concentration - - Weight 71.4 kg (157 lb 6.4 oz) 05/22/2025 10:32 AM EDT Height - - Body Mass Index 27.02 09/30/2024 10:40 AM EST documented in this encounter Patient Instructions * Patient Instructions* Kirstin Miller NP - 05/22/2025 10:30 AM EDT Glipizide 5mg pill: cut the pill in half, and only take 2.5mg twice a day with meal (breakfast and supper time), if blood sugars are running over 150 consistently call me documented in this encounter Progress Notes * Kirstin Miller NP - 05/22/2025 10:30 AM EDT Images from the original note were not included. Bhumika Sarabia is a 84 y.o. female presents with chief complaint of Diabetes HPI: Diabetes She presents for her follow-up diabetic visit. She has type 2 diabetes mellitus. Her disease coursehas been stable. Pertinent negatives for hypoglycemia include no dizziness, headaches, nervousness/anxiousness, seizures or tremors. (Vision changes) Associated symptoms include foot paresthesias (from lumbar surgery right foot). Pertinent negatives for diabetes include no chest pain, no polydipsia, no polyphagia and no polyuria. There are no hypoglycemic complications. Symptoms are stable. Diabetic complications include heart disease. Pertinent negatives for diabetic complications include no nephropathy, peripheral neuropathy or PVD. Risk factors for coronary artery disease include diabetes mellitus, dyslipidemia, hypertension and post-menopausal. Current diabetic treatment includes oral agent (dual therapy). She is compliant with treatment all of the time. Her overall blood glucose range is 90-110 mg/dl. An BONIFACIO inhibitor/angiotensin II receptor donna is being taken. She does not seea change analyst.Eye exam is current. Hypertension This is a chronic problem. The current episode started more than 1 year ago. The problem is unchanged. The problem is controlled. Associated symptoms include peripheral edema (right LE). Pertinent negatives include no chest pain, headaches, orthopnea, palpitations or shortness of breath. There are no associated agents to hypertension. Risk factors for coronary artery disease include diabetes mellitus, dyslipidemia and sedentary lifestyle. Past treatments include beta blockers, BONIFACIO inhibitors and diuretics. The current treatment provides significant improvement. There are no compliance problems. Hypertensive end-organ damage includes CAD/AZ. There is no history of heart failure or PVD. SUBJECTIVE: MEDICATIONS: Current Outpatient Medications Medication Instructions Blood Glucose Monitoring Suppl (True Metrix Meter) w/Device kit USE DIRECTED bumetanide (BUMEX) 1 mg, Daily PRN cyanocobalamin (VITAMIN B-12) 1,000 mcg, Daily RT Drug [place] Unilet Lancets 30G [facility] use to test BLOOD SUGAR DAILY Eliquis 5 mg, 2 times daily ezetimibe (ZETIA) 10 mg, Nightly fluconazole (Diflucan) 150 MG tablet Take 1 dose, then repeat in 3 days glipiZIDE (GLUCOTROL) 5 mg, Oral, 2 times daily before meals glucose blood (Accu-Chek Guide Test) test strip Use once daily. Use as instructed lisinopril 20 mg, Daily RT MAGNESIUM PO 250 mg, Daily RT metFORMIN (GLUCOPHAGE) 1,000 mg, [...] Positive for leg swelling. Negative for chest pain, palpitations and orthopnea. Gastrointestinal: Negative for abdominal pain, blood in [...] not on file. OBJECTIVE: Visit Vitals BP 118/82 (BP Location: Left arm, Patient Position: Sitting, BP Cuff Size: Adult long) Pulse 65 Temp 97.8 ??F (Temporal) Resp 18 Wt 157 lb 6.4 oz SpO2 96% BMI 27.02 kg/m?? Smoking Status Never BSA 1.8 m?? Physical Exam Vitals and nursing note reviewed. [...] sounds: Normal breath sounds. No wheezing or rhonchi. Abdominal: General: Bowel sounds are normal. There is no distension. Palpations: Abdomen is soft. There is no mass. Tenderness: There is no abdominal tenderness. Musculoskeletal: General: Normal range of motion. Cervical back: Normal range of motion and neck supple. Right lower leg: Edema present. Left lower leg: No edema. Comments: Walks with walker and has RLE weakness Skin: General: Skin is warm and dry. [...] Follow up in about 3 months (around 08/22/2025) for Recheck. Problem List Items Addressed This Visit Chronic atrial fibrillation, unspecified (HCC) Continue eliquis therapy as b donna therapy No current symptoms, NSR today Continue w cardiology Benign essential HTN Please check blood pressure daily and record DASH diet Limit caffeine Take medication as directed Contact office if chest pain, pressure, dizziness, shortness of breath, swelling legs Recommend slow position changes Current meds: lisinopril, metoprolol, spironolactone Hyperlipidemia On zetia and crestor Check labs yearly and prn dose chagnes Type 2 diabetes mellitus without complication (HCC) Check blood sugars daily, notify if <70 or >200. Take medications (pills or insulin) as directed. Monitor for s/s of hypoglycemia (sweaty, dizziness, nausea, vomiting, or shakiness). Watch for increase in thirst, urination, or appetite. Inspect feet frequently monitoring for open wounds , andalso recommend yearly eye exam. Pt should attempt to remain as physically active as chronic conditions allow, as well as trying to follow a diet low in carbohydrates, and simple sugars. Current meds: glipizide, metformin, bonifacio, statin, A1c 5.7% 01/31/25 We will try to cut the dose on SANCHEZ to 2.5mg BID with meals Call office if BS greater than 150 Type 2 diabetes mellitus with diabetic neuropathy, unspecified (HCC) - Primary Close monitoring of feet for s/s wounds, callous, or infection Good blood sugar control Acute gastric ulcer without hemorrhage or perforation Relevant Medications pantoprazole (ProtoNix) 40 MG EC tablet Type 2 diabetes mellitus with diabetic peripheral angiopathy without gangrene (HCC) Continue with risk factor modification and control blood glucose as well as BP Encounter for screening mammogram for malignant neoplasm of breast Relevant Orders Bilateral screening mammogram Other Visit Diagnoses Type 2 diabetes mellitus without complications (HCC) Relevant Medications glipiZIDE (Glucotrol) 5 MG tablet metFORMIN (Glucophage) 1000 MG tablet * Kirstin Miller NP - 05/22/2025 6:30 AM EDTAssociated Problem(s): Hyperlipidemia On zetia and crestor Check labs yearly and prn dose chagnes * Kirstin Miller NP - 05/22/2025 6:30 AM EDTAssociated Problem(s): Type 2 diabetes mellitus without complication (HCC) Check blood sugars daily, notify if <70 or >200. Take medications (pills or insulin) as directed. Monitor for s/s of hypoglycemia (sweaty, dizziness, nausea, vomiting, or shakiness). Watch for increase in thirst, urination, or appetite. Inspect feet frequently monitoring for open wounds , andalso recommend yearly eye exam. Pt should attempt to remain as physically active as chronic conditions allow, as well as trying to follow a diet low in carbohydrates, and simple sugars. Current meds: glipizide, metformin, bonifacio, statin, A1c 5.7% 01/31/25 We will try to cut the dose on SANCHEZ to 2.5mg BID with meals Call office if BS greater than 150 * Kirstin Miller NP - 05/22/2025 6:29 AM EDTAssociated Problem(s): Benign essential HTN Please check blood pressure daily and record DASH diet Limit caffeine Take medication as directed Contact office if chest pain, pressure, dizziness, shortness of breath, swelling legs Recommend slow position changes Current meds: lisinopril, metoprolol, spironolactone * Kirstin Miller NP - 05/22/2025 6:29 AM EDTAssociated Problem(s): Chronic atrial fibrillation, unspecified (HCC) Continue eliquis therapy as b donna therapy No current symptoms, NSR today Continue w cardiology * Kirstin Miller NP - 05/22/2025 6:29 AM EDTAssociated Problem(s): Type 2 diabetes mellitus with diabetic peripheral angiopathy without gangrene (HCC) Continue with risk factor modification and control blood glucose as well as BP * Kirstin Miller NP - 05/22/2025 6:29 AM EDTAssociated Problem(s): Type 2 diabetes mellitus with diabetic neuropathy, unspecified (HCC) Close monitoring of feet for s/s wounds, callous, or infection Good blood sugar control documented in this encounter Plan of Treatment Upcoming Encounters Date Type Department Care Team (Late st Contact Info) Description 08/21/2025 9:20 AM EST Office Visit [facility] [address] [place] [address] Kirstin Miller NP [address] [place] [address] 02/23/2026 10:30 AM EDT Office Visit [facility] [address] [place] [address] Kirstin Miller NP [address] [place] [id number] Scheduled Orders Name Type Priority Associated Diagnoses Orde r Schedule Bilateral screening mammogram Imaging Routine Encounter for screening mammogram for malignant neoplasm of breast Expected: 05/22/2025 (Approximate), Expires: 07/22/2026 documented as of this encounter Visit Diagnoses Diagnosis Type 2 diabetes mellitus without complication, without long-term current use of insulin (HCC)- Primary Type 2 diabetes mellitus with diabetic neuropathy, without long-term current use of insulin (HCC) Type 2 diabetes mellitus with diabetic peripheral angiopathy without gangrene, without long-term current use of insulin (HCC) Chronic atrial fibrillation, unspecified (HCC) Benign essential HTN Mixed hyperlipidemia Mixed hyperlipidemia Encounter for screening mammogram for malignant neoplasm of breast Type 2 diabetes mellitus without complications (HCC) Acute gastric ulcer without hemorrhage or perforation Acute gastric ulcer without mention of hemorrhage, perforation, or obstruction documented in this encounter Additional Health Concerns Assessment Noted Time PHQ-9 Depression Total Score: 1 02/19/20 25 10:38 AM EDT documented as of this encounter Care Teams Range Aide Relationship Specialty Start Date End Date Mike Steiner MD [address] [place] [address] PCP - General Family Medicine 08/20/24 Kirstin Miller NP [address] [place] [address] Nurse Practitioner Family Medicine 08/09/23 documented as of this encounter
--- NOTE | 2025-05-28 12:42 | MM_ITS ---
Patient Name: SAEED JOHNSON MR#: [id number] : 1940 Exam Date: 05/28/2025 Ordering Doctor: LEXI CASAS CNP RADIOLOGY REPORT PROCEDURE: MM SCREENING MAMMO BI COMPARISON: None. INDICATIONS: Screening Calculator Name NCI Breast Cancer Risk Assessment Tool 5 Year Breast Cancer Risk 6.20% Lifetime Breast Cancer Risk 6.90% Personal Breast Cancer No Personal Ovarian Cancer No Treatments None Family Cancers Sister with breast cancer at age 73; Daughter with breast cancer at age 62; Daughter with breast cancer at age 59; Daughter with breast cancer at age 53; Aunt-maternal with breast cancer at age 90. LOCATION: [facility] BREAST COMPOSITION: The breasts are almost entirely fatty. FINDINGS: RIGHT BREAST: No significant suspicious finding. LEFT BREAST: No significant suspicious finding. DIAGNOSTIC CATEGORY 1--NEGATIVE. RECOMMENDATIONS: ROUTINE MAMMOGRAM AND CLINICAL EVALUATION IN 12 MONTHS. PLEASE NOTE: A NORMAL MAMMOGRAM DOES NOT EXCLUDE THE POSSIBILITY OF BREAST CANCER. A CLINICALLY SUSPICIOUS PALPABLE LUMP SHOULD BE BIOPSIED. Dictated by: Jamin Barnhart MD on 05/28/2025 at 14:27 Approved by: Jamin Barnhart MD on 05/28/2025 at 14:29
--- OUTSIDE RECORDS SUMMARY | 2025-05-28 12:42 | XMS_ITS | Encounter Summary ---
Author Organization [facility] Address [address] [facility] [place] [address] Care Team Providers Care Junior Loan Processor Name Role Phone Kirstin Miller NP Unavailable [phone] Mike Steiner MD Primary Care Provider Encounter Details Date Type Department Care Team (Late st Contact Info) Description 12/26/2024 Orders Only [facility] [address] [place] [address] Kirstin Miller, CLOTH TEARER [address] [place] [address] Social History Tobacco Use Types Packs/Day Years [...] 9:20 AM EST Office Visit [facility] [address] [place] [address] Kirstin Miller, RONNIE [address] [place] [address] 02/23/2026 10:30 AM EDT Office Visit [facility] [address] [place] [address] Kirstin Miller NP [address] [place] [phone] documented as of this encounter Procedures Procedure [...] documented as of this encounter Care Teams Junior Loan Processor Relationship Specialty Start Date End Date Mike Steiner MD [address] [place] [address] PCP - General Family Medicine 08/20/24 Kirstin Miller NP [address] [place] [address] Nurse Practitioner Family Medicine 08/09/23 documented as of this encounter
--- OUTSIDE RECORDS SUMMARY | 2025-05-28 12:42 | XMS_ITS | Encounter Summary ---
Author Organization [facility] Address [address] [facility] [place] [address] Care Team Providers Care Health Editor Name Role Phone Kirstin Miller NP Unavailable [phone] Mike Steiner MD Primary Care Provider Encounter Details Date Type Department Care Team (Late st Contact Info) Description 09/17/2024 Orders Only [facility] [address] [place] [address] Kirstin Miller, FORMER HAND [address] [place] [address] Social History Tobacco Use Types Packs/Day Years [...] Visit [facility] [address] [place] [address] Kirstin Miller, RONNIE [address] [place] [address] 02/23/2026 10:30 AM EDT Office Visit [facility] [address] [place] [address] Kirstin Miller, RONNIE [address] [place] [address] documented as of this encounter Procedures Procedure Name Priority Date/Time Associated Diagnosis Comments XR CHEST 2 VIEWS Routine 09/17/2024 12:42 PM EST documented in this encounter Results * XR chest 2 views (09/17/2024 12:42 PM EST) Anatomical Region Laterality Modality Chest Radiographic Daniella ging us Kirstin Miller FORMER HAND IMG XR PROCEDURES Final Result documented in this encounter Visit Diagnoses Not on filedocumented in this encounter Additional Health Concerns Assessment Noted Time PHQ-9 Depression Total Score: 1 02/15/20 24 4:46 PM EDT documented as of this encounter Care Teams Health Editor Relationship Specialty Start Date End Date Mike Steiner MD [address] [place] [address] PCP - General Family Medicine 08/20/24 Kirstin Miller NP [address] [place] [address] Nurse Practitioner Family Medicine 08/09/23 documented as of this encounter
--- OUTSIDE RECORDS SUMMARY | 2025-05-28 12:42 | XMS_ITS | Clinical Summary ---
Author Organization [facility] Address [address] [place] [address] Care Team Providers Care Culinary Specialist Name Role Phone Kirstin Miller NP Unavailable [phone] Mike Steiner MD Primary Care Provider [phone] Allergies Active Allergy Reactions Criticality Noted Date Comments Morphine GI intolerance,Nausea Only Low 4 Medications Eliquis 5 MG tablet Take 5 mg by mouth in the morning and 5 mg before bedtime. Active bumetanide (Bumex) 1 MG tablet Take 1 mg by mouth Daily as needed (edema) 02/02/20 24 Active ezetimibe (Zetia) 10 MG tablet Take 10 mg by mouth at bedtime Active lisinopril 20 MG tablet Take 20 mg by mouth in the morning. 02/02/20 24 Active metoprolol succinate XL (Toprol-XL) 100 MG [...] then repeat in 3 days 2 tablet 08/30/20 24 Active Multiple Vitamins-Minerals (Oncovite) tablet Take 1 tablet by mouth in the morning. 10/21/19 25 Active cyanocobalamin (Vitamin B-12) 1000 MCG tablet Take 1,000 mcg by mouth in the morning. Active MAGNESIUM PO Take 250 mg by mouth in the morning. Active nitroglycerin (Nitrostat) 0.[address] 0.4 mg under the tongue 11/07/19 Active glucose blood (Accu-Chek Guide Test) test stripIndications: Type 2 diabetes mellitus without complication, without long-term current use of insulin (HCC) Use once daily. Use as instructed 50 each 8 12/03/19 Active Drug [place] Unilet Lancets 30G misc use to test BLOOD SUGAR DAILY 12/05/19 Active Blood Glucose Monitoring Suppl (True Metrix Meter) w/Device kit USE DIRECTED 12/05/19 Active glipiZIDE (Glucotrol) 5 MG tabletIndications :Type 2 diabetes mellitus without complications (HCC) Take 1 tablet (5 mg) by mouth in the morning and 1 tablet (5 mg) in the evening. Take before meals. 180 tablet 1 05/22/20 Active Additional Information Patient taking differently: 2.5 mgOral 2 times daily before meals, Morning, Evening, Reported on 05/22/2025 metFORMIN (Glucophage) 1000 MG tabletIndications :Type 2 diabetes mellitus without complications (HCC) Take 1 tablet (1,000 mg) by mouth in the morning and 1 tablet (1,000 mg) in the evening. Take with meals. 180 tablet 1 05/22/20 025 Active pantoprazole (ProtoNix) 40 MG EC tabletIndications :Acute gastric ulcer without hemorrhage or perforation Take 1 tablet (40 mg) by mouth in the morning and 1 tablet (40 mg) in the evening. Take before meals. 180 tablet 1 05/22/20 Active metFORMIN (Glucophage) 1000 MG tabletIndications :Type 2 diabetes mellitus without complications (HCC) Take 1 tablet (1,000 mg) by mouth in the morning and 1 tablet (1,000 mg) in the evening. Take with meals. 180 tablet 1 02/19/20 025 Discontin ued(Reord er) glipiZIDE (Glucotrol) 5 MG tabletIndications :Type 2 diabetes mellitus without complications (HCC) Take 1 tablet (5 mg) by mouth in the morning and 1 tablet (5 mg) in the evening. Take before meals. 180 tablet 1 02/19/20 025 Discontin ued(Reord er) pantoprazole (ProtoNix) 40 MG EC tabletIndications :Acute gastric ulcer without hemorrhage or perforation Take 1 tablet (40 mg) by mouth in the morning and 1 tablet (40 mg) in the evening. Take before meals. 180 tablet 1 02/19/20 025 Discontin ued(Reord er) Active Problems Problem Noted Date Diagnosed Date Encounter for screening mamm ogram for malignant neoplasm of breast 05/22/2025 Type 2 diabetes mellitus wit h diabetic peripheral angiopathy without gangrene 10/30/2024 Assessment & Plan (05/22/2025 6:29 AM EDT): Continue with risk factor modification and control blood glucose as well as BP Assessment & Plan (02/18/2025 6:22 AM EDT): [...] Plan (10/30/2024 6:56 AM EST): Continue with FIRE COORDINATOR Will be having biopsy Endocervical polyp 10/29/2024 Assessment & Plan (10/30/2024 6:56 AM EST): Noted on FIRE COORDINATOR exam and pelvic US Will get biopsy Endometrial polyp 10/29/2024 Assessment & Plan (10/30/2024 6:57 AM EST): Seen on FIRE COORDINATOR exam and had US, will be having [...] 10/16/2024 Overview (10/18/2024): Had MRI brain at [facility] 09/19/24: mod periventricular FLAIR hyperintensities (chronic [...] perfor ation 09/30/2024 Overview (10/18/2024): EGD at [facility] 10/01 mild [place] grade A esophagitis, [...] (09/30/2024 1:08 PM EST): Was transferred to [facility] for this, no surgery as of yet Will need to review notes Acute metabolic encephalopathy 09/17/2024 Assessment & Plan (10/30/2024 6:54 AM EST): Dx in hospital Assessment & Plan (09/30/2024 1:07 PM EST): Was part of diagnosis when admitted to [facility] for gallballer resolved Cholelithiasis 09/17/2024 Vaginal yeast infection 08/30/2024 Hypernatremia 08/23/2024 Other thrombophilia (HHS-HCC) 08/20/2024 Assessment & Plan (12/03/2024 6:17 AM [...] diabetic neuropathy, unspecified 08/20/2024 Assessment & Plan (05/22/2025 6:29 AM EDT): Close monitoring of feet for s/s wounds, callous, or infection Good blood sugar control Assessment & Plan (02/18/2025 6:21 AM EDT): [...] blood test 02/15/2024 Encounter for subsequent [facility] wellness visit (AWV) in Medicare patient 02/15/2024 [...] after surgery- MondayApril 10 Assessment & Plan (05/22/2025 6:29 AM EDT): Continue eliquis therapy as b donna therapy No current symptoms, NSR today Continue w cardiology Assessment & Plan (02/18/2025 6:21 AM EDT): [...] metoprolol ER 100mg Qday Assessment & Plan (05/22/2025 6:29 AM EDT): Please check blood pressure daily and record DASH diet Limit caffeine Take medication as directed Contact office if chest pain, pressure, dizziness, shortness of breath, swelling legs Recommend slow position changes Current meds: lisinopril, metoprolol, spironolactone Assessment & Plan (02/18/2025 6:21 AM EDT): [...] PLAN: Continue home medication Assessment & Plan (05/22/2025 6:30 AM EDT): On zetia and crestor Check labs yearly and prn dose chagnes Assessment & Plan (02/18/2025 6:24 AM EDT): [...] (BID) and glipizide SS1 Assessment & Plan (05/22/2025 11:13 AM EDT): Check blood sugars daily, notify [...] Call office if BS greater than 150 Assessment & Plan (02/18/2025 6:24 AM EDT): [...] Encounters Date Type Department Care Team Description 05/22/2025 10:30 AM EDT Office Visit [facility] [address] [place] [address] Kirstin Miller, RONNIE Type 2 diabetes mellitus without complication, without [...] Acute gastric ulcer without hemorrhage or perforation 05/22/2025 Abstract [facility] [address] [place] [address] Kirstin Miller NP 05/22/2025 Bamboo flowsheet [facility] [address] [place] [address] Kirstin Miller, RONNIE 04/21/2025 Abstract [facility] [address] [place] [address] Kirstin Miller NP 04/21/2025 [facility] [address] [place] [address] from Last 3 Months Immunizations Immunization Administration [...] 6.4 oz) 05/22/2025 10:32 AM EDT Height 162.6 cm (5' 4 ) 09/30/2024 10:40 AM EST Body Mass Index 27.02 09/30/2024 10:40 AM EST Plan of Treatment Upcoming Encounters Date Type Department Care Team (Late st Contact Info) Description 08/21/2025 9:20 AM EST Office Visit [facility] [address] [place] [address] Kirstin Miller NP [address] [place] [phone] 02/23/2026 10:30 AM EDT Office Visit [facility] [address] [place] [address] Kirstin Miller, RONNIE [address] [place] [phone] Health Maintenance Due Date Last Done Comments Diabetes: Hemoglobin A1C 05/02/2025 025, 12/03/2024, 08/20/2024, Additional history exists Influenza Vaccine (#1) 2025 4, 07/25/2023, 08/08/2022, Additional history exists Diabetes: Urine Protein Screening 01/31/2026 025, 08/25/2023 Diabetes: Retinopathy Screening 12/26/2026 5, 12/19/2022 Pneumococcal Vaccine: 65+ Years Completed 6, 03/23/2015 Procedures Procedure Name Priority Date/Time Associated Diagnosis Comments XR FOOT 3+ VIEWS LEFT Routine 04/21/2025 9:36 AM EDT XR KNEE 3 VIEWS LEFT Routine 04/21/2025 9:35 AM EDT XR ANKLE 3+ VIEWS LEFT Routine 04/21/2025 9:34 AM EDT DIABETIC RETINOPATHY SCREENING - OU - BOTH EYES Routine 12/26/2024 10:18 AM EDT POCT GLYCOSYLATED HEMOGLOBIN (HGB A1C) Routine 12/03/2024 9:30 AM EST Type 2 diabetes mellitus without complication, without long-term current use of insulin (HCC) from Last 3 Months or Most Recently Relevant to Health Maintenance Results * XR foot 3+ views left (04/21/2025 9:36 AM EDT) Anatomical Region Laterality Modality Lower Extremities, Foot Left Radiogra phic Imaging [facility] XR PROCEDURES Final Result * XR knee 3 views left (04/21/2025 9:35 AM EDT) Anatomical Region Laterality Modality Lower Extremities, Knee Left Radiogra phic Imaging [facility] XR PROCEDURES Final Result * XR ankle 3+ views left (04/21/2025 9:34 AM EDT) Anatomical Region Laterality Modality Lower Extremities, Ankle Left Radiogr aphic Imaging [facility] XR PROCEDURES Final Result * Diabetic Retinopathy Screening - OU - [...] Recently Relevant to Health Maintenance Insurance MEDICARE [facility] Care Teams Culinary Specialist Relationship Specialty Start Date End Date Mike Steiner MD [address] [place] [phone] PCP - General Family Medicine 08/20/24 Kirstin Miller NP [address] [place] [address] Nurse Practitioner Family Medicine 08/09/23
--- OUTSIDE RECORDS SUMMARY | 2025-05-28 12:42 | XMS_ITS | Encounter Summary ---
Author Organization [facility] Address [address] [facility] [place] [address] Care Team Providers Care A And P Technician Name Role Phone Kirstin Miller CAR JOCKEY Unavailable [phone] Mike Steiner MD Primary Care Provider [phone] Encounter Details Date Type Department Care Team (Late st Contact Info) Description 10/15/2024 Orders Only [facility] [address] [place] [address] Social History Tobacco Use Types Packs/Day Years [...] 08/21/2025 9:20 AM EST Office Visit [facility] [address] [place] [address] Kirstin Miller NP [address] [place] [address] 02/23/2026 10:30 AM EDT Office Visit [facility] [address] [place] [phone] Kirstin Miller NP [address] [place] [address] documented as of this encounter Procedures Procedure Name Priority Date/Time Associated Diagnosis Comments CT ABDOMEN/PELVIS WITH CONTRAST Routine 10/15/2024 1:02 PM EST documented in this encounter Results * CT ABDOMEN/PELVIS WITH CONTRAST (10/15/2024 1:02 PM EST) Anatomical Region Laterality Modality Radiographic Daniella ging [facility] IMG XR PROCEDURES Final Result documented in this encounter Visit Diagnoses Not on filedocumented in this encounter Additional Health Concerns Assessment Noted Time PHQ-9 Depression Total Score: 1 02/15/20 24 4:46 PM EDT documented as of this encounter Care Teams A And P Technician Relationship Specialty Start Date End Date Mike Steiner MD [address] [place] [address] PCP - General Family Medicine 08/20/24 Kirstin Miller NP [address] [place] [address] Nurse Practitioner Family Medicine 08/09/23 documented as of this encounter
--- OUTSIDE RECORDS SUMMARY | 2025-05-28 12:42 | XMS_ITS | Encounter Summary ---
Author Organization [facility] Address [address] [place] [address] Care Team Providers Care Die Attacher Name Role Phone Kirstin Miller MD Primary Care Provider [phone] Reason for Visit * Reason Onset Date Comments Med Refill 05/19/2025 Encounter Details Date Type Department Care Team (Late st Contact Info) Description 05/19/2025 Refill [facility] [address] [place] [phone] Magi Tatum MA Coronary artery disease involving [place] coronary artery of [place] heart without angina pectoris Social History Tobacco Use Types Packs/Day Years Used Date Smoking Tobacco: Never Smokeless Tobacco: Never Alcohol Use Standard Drinks/Week Comments Not Currently 0 (1 standard drink = 0.6 oz pur e alcohol) [facility] Utilities Answer Date Recorded In the past 12 months has [employer], gas, oil, or water [employer] threatened to shut off services in your [...] any time in the past 12 m [facility], were you homeless or living in a fpc (including now)? Patient unable to answer 09/18/2024 [...] PM EST documented as of this encounter Plan of Treatment Not on file documented as of this encounter Visit Diagnoses Diagnosis Coronary artery disease involving [place] coronary artery of [place] heart without angina pectoris documented in this encounter Care Teams Die Attacher Relationship Specialty Start Date End Date Kirstin Miller MD [address] [place] [address] PCP - General 01/16/23 documented as of this encounter
--- OUTSIDE RECORDS SUMMARY | 2025-05-28 12:42 | XMS_ITS | Encounter Summary ---
Author Organization [facility] Address [address] [place] [address] Care Team Providers Care Hybrid Corn Breeder Name Role Phone Paul Kirstin Vitale CNP Primary Care Provider [phone] Source Comments In the event this information is protected by the Federal Confidentiality of Alcohol and Drug AbusePatient Records regulations: The Federal rules restrict any use of the information to criminally investigate or prosecute any alcohol or drug abuse patient.[facility] Encounter Details Date Type Department Care Team (Late st Contact Info) Description 11/29/2024 Get Medical Advice Obstetrics/Gynecology [address] [place] [address] Provider, [facility] Procedure on 12/06 Social History Tobacco Use Types Packs/Day Years Used Date Smoking Tobacco: Never Passive Smoke Exposure: Never Smokeless Tobacco: Never Alcohol Use Standard Drinks/Week Comments Never 0 (1 standard drink = 0.6 oz pur e alcohol) [facility] Utilities Answer Date Recorded In the past 12 months has [employer], [employer], or [employer] threatened to shut off services in your [...] were you homeless or living in a half-way (including now)? No 10/17/2024 Area Deprivation Index Answer Date Terry rded National Score (1-100), lower number is lower ri sk 63 10/17/2024 State Score (1-10), lower number is lower risk 4 10/17/2024 Data from: https://www.neighborhoodatlas.medicine.[facility].edu/. Last address used for calculation [address] [...] Sergio Longo RN * Do you have difficulty dressing [...] on filedocumented in this encounter Care Teams Hybrid Corn Breeder Relationship Specialty Start Date End Date Kirstin Miller CNP [address] [place] [address] PCP - General Family Medicine 10/16/24 documented as of this encounter
--- OUTSIDE RECORDS SUMMARY | 2025-05-28 12:42 | XMS_ITS | Encounter Summary ---
Author Organization [facility] Address [address] [place] [address] Care Team Providers Care Astronomy Department Chair Name Role Phone Kirstin Miller MD Primary Care Provider [phone] Reason for Visit * Reason Onset Date Comments Med Refill 05/20/2025 Encounter Details Date Type Department Care Team (Late st Contact Info) Description 05/20/2025 Refill [facility] [address] [place] [address] Aubrie Mcgovern MA Coronary artery disease involving [place] coronary artery of [place] heart without angina pectoris Social History Tobacco Use Types Packs/Day Years Used Date Smoking Tobacco: Never Smokeless Tobacco: Never Alcohol Use Standard Drinks/Week Comments Not Currently 0 (1 standard drink = 0.6 oz pur e alcohol) [facility] Utilities Answer Date Recorded In the past 12 months has [employer], gas, oil, or water [employer] threatened to shut off services in your [...] any time in the past 12 m [facility], were you homeless or living in a senior care (including now)? Patient unable to answer 09/18/2024 [...] Visit Diagnoses Diagnosis Coronary artery disease involving the [place] coronary artery of [place] heart without angina pectoris documented in this encounter Care Teams Astronomy Department Chair Relationship Specialty Start Date End Date Kirstin Miller MD [address] [place] [address] PCP - General 01/16/23 documented as of this encounter
--- OUTSIDE RECORDS SUMMARY | 2025-05-28 12:42 | XMS_ITS | Encounter Summary ---
Author Organization [facility] Address [address] [facility] [place] [address] Care Team Providers Care Incident Manager Name Role Phone Kirstin Miller NP Unavailable [phone] Mike Steiner MD Primary Care Provider Encounter Details Date Type Department Care Team (Late st Contact Info) Description 04/21/[address] [facility] [address] [place] [address] Kirstin Miller, RONNIE [address] [place] [address] Social History Tobacco Use Types Packs/Day Years [...] 08/21/2025 9:20 AM EST Office Visit [facility] [address] [place] [address] Kirstin Miller, RONNIE [address] [place] [address] 02/23/2026 10:30 AM EDT Office Visit [facility] [address] [place] [address] Kirstin Miller NP [address] [place] [address] documented as of this encounter Visit Diagnoses Not on filedocumented in this encounter Additional Health Concerns Assessment Noted Time PHQ-9 Depression Total Score: 1 02/19/20 25 10:38 AM EDT documented as of this encounter Care Teams Incident Manager Relationship Specialty Start Date End Date Mike Steiner MD [address] [place] [address] PCP - General Family Medicine 08/20/24 Kirstin Miller NP [address] [place] [address] Nurse Practitioner Family Medicine 08/09/23 documented as of this encounter
--- OUTSIDE RECORDS SUMMARY | 2025-05-28 12:42 | XMS_ITS | Encounter Summary ---
Author Organization [facility] Address [address] [facility] [place] [address] Care Team Providers Care Route Sales Delivery Drivers Supervisor Name Role Phone Kirstin Miller NP Unavailable [phone] Mike Steiner MD Primary Care Provider [phone] Encounter Details Date Type Department Care Team (Late st Contact Info) Description 09/19/2024 Orders Only [facility] [address] [place] [address] Kirstin Miller, LIBRARY MONITOR [address] [place] [address] Social History Tobacco Use Types Packs/Day Years [...] Visit [facility] [address] [place] [address] Kirstin Miller, RONNIE [address] [place] [address] 02/23/2026 10:30 AM EDT Office Visit [facility] [address] [place] [address] Kirstin Miller, RONNIE [address] [place] [address] documented as of this encounter Procedures Procedure Name Priority Date/Time Associated Diagnosis Comments SCANNED LABS Routine 09/19/2024 8:43 AM EST documented in this encounter Results * SCANNED LABS (09/19/2024 8:43 AM EST) us Kirstin Miller LIBRARY MONITOR LAB CHG PERFORMABLES Final Resu lt documented in this encounter Visit Diagnoses Not on filedocumented in this encounter Additional Health Concerns Assessment Noted Time PHQ-9 Depression Total Score: 1 02/15/20 24 4:46 PM EDT documented as of this encounter Care Teams Route Sales Delivery Drivers Supervisor Relationship Specialty Start Date End Date Mike Steiner MD [address] [place] [address] PCP - General Family Medicine 08/20/24 Kirstin Miller NP [address] [place] [address] Nurse Practitioner Family Medicine 08/09/23 documented as of this encounter
--- OUTSIDE RECORDS SUMMARY | 2025-05-28 12:42 | XMS_ITS | Encounter Summary ---
Author Organization [facility] Address [address] [facility] [place] [address] Care Team Providers Care Sand Mill Grinder Name Role Phone Kirstin Miller NP Unavailable [phone] Mike Steiner MD Primary Care Provider Encounter Details Date Type Department Care Team (Late st Contact Info) Description 05/22/[address] [facility] [address] [phone] Kirstin Miller, RONNIE [address] [place] [address] Social History Tobacco Use Types Packs/Day Years [...] 9:20 AM EST Office Visit [facility] [address] [place] [phone] Kirstin Miller, RONNIE [address] [place] [address] 02/23/2026 10:30 AM EDT Office Visit [facility] [address] [place] [address] Kirstin Miller NP [address] [place] [phone] documented as of this encounter Visit Diagnoses Not on filedocumented in this encounter Additional Health Concerns Assessment Noted Time PHQ-9 Depression Total Score: 1 02/19/20 25 10:38 AM EDT documented as of this encounter Care Teams Sand Mill Grinder Relationship Specialty Start Date End Date Mike Steiner MD [address] [place] [address] PCP - General Family Medicine 08/20/24 Kirstin Miller NP [address] [place] [address] Nurse Practitioner Family Medicine 08/09/23 documented as of this encounter
--- OUTSIDE RECORDS SUMMARY | 2025-05-28 12:42 | XMS_ITS | Encounter Summary ---
Author Organization [facility] Address [address] [facility] [place] [address] Care Team Providers Care Calculation Reviewer Name Role Phone Kirstin Miller NP Unavailable [phone] Mike Steiner MD Primary Care Provider [phone] Encounter Details Date Type Department Care Team (Late st Contact Info) Description 04/21/2025 Orders Only [facility] [address] [place] [phone] Social History Tobacco Use Types Packs/Day Years [...] 08/21/2025 9:20 AM EST Office Visit [facility] [address] [place] [phone] Kirstin Miller, TELEGRAPH OFFICE ROUTE AIDE [address] [place] [address] 02/23/2026 10:30 AM EDT Office Visit [facility] [address] [place] [phone] Kirstin Miller, RONNIE [address] [place] [address] documented as of this encounter Procedures Procedure Name Priority Date/Time Associated Diagnosis Comments XR FOOT 3+ VIEWS LEFT Routine 04/21/2025 9:36 AM EDT XR KNEE 3 VIEWS LEFT Routine 04/21/2025 9:35 AM EDT XR ANKLE 3+ VIEWS LEFT Routine 04/21/2025 9:34 AM EDT documented in this encounter Results * XR foot 3+ views left (04/21/2025 9:36 AM EDT) Anatomical Region Laterality Modality Lower Extremities, Foot Left Radiogra phic Imaging [facility] XR PROCEDURES Final Result * XR knee 3 views left (04/21/2025 9:35 AM EDT) Anatomical Region Laterality Modality Lower Extremities, Knee Left Radiogra phic Imaging [facility] IMG XR PROCEDURES Final Result * XR ankle 3+ views left (04/21/2025 9:34 AM EDT) Anatomical Region Laterality Modality Lower Extremities, Ankle Left Radiogr aphic Imaging [facility] IMG XR PROCEDURES Final Result documented in this encounter Visit Diagnoses Not on filedocumented in this encounter Additional Health Concerns Assessment Noted Time PHQ-9 Depression Total Score: 1 02/19/20 25 10:38 AM EDT documented as of this encounter Care Teams Calculation Reviewer Relationship Specialty Start Date End Date Mike Steiner MD [address] [place] [address] PCP - General Family Medicine 08/20/24 Kirstin Miller NP [address] [place] [address] Nurse Practitioner Family Medicine 08/09/23 documented as of this encounter
--- OUTSIDE RECORDS SUMMARY | 2025-05-28 12:42 | XMS_ITS | Clinical Summary ---
Author Organization [facility] Address [address] [place] [address], [address] [place] [address] Care Team Providers Care Scientific Research Associate Name Role Phone Unavailable Primary Care Provider [...]
--- OUTSIDE RECORDS SUMMARY | 2025-05-28 12:42 | XMS_ITS | Encounter Summary ---
Author Organization [facility] Address [address] [facility] [place] [address] Care Team Providers Care Cake Knocker Name Role Phone Kirstin Miller NP Unavailable [phone] Mike Setiner MD Primary Care Provider [phone] Encounter Details Date Type Department Care Team (Late st Contact Info) Description 08/23/2024 Orders Only [facility] [address] [place] [address] Kirstin Miller, EXHIBITS MANAGER [address] [place] [address] Social History Tobacco Use Types Packs/Day Years [...] Visit [facility] [address] [place] [address] Kirstin Miller, RONNIE [address] [place] [address] 02/23/2026 10:30 AM EDT Office Visit [facility] [address] [place] [address] Kirstin Miller, RONNIE [address] [place] [address] documented as of this encounter Visit Diagnoses Not on filedocumented in this encounter Additional Health Concerns Assessment Noted Time PHQ-9 Depression Total Score: 1 02/15/20 24 4:46 PM EDT documented as of this encounter Care Teams Cake Knocker Relationship Specialty Start Date End Date Mike Steiner MD [address] [place] [address] PCP - General Family Medicine 08/20/24 Kirstin Miller NP [address] [place] [address] Nurse Practitioner Family Medicine 08/09/23 documented as of this encounter
--- OUTSIDE RECORDS SUMMARY | 2025-05-28 12:42 | XMS_ITS | Encounter Summary ---
Author Organization [facility] Address [address] [facility] [place] [address] Care Team Providers Care Chain Sales Representative Name Role Phone Kirstin Miller NP Unavailable [phone] Mike Steiner MD Primary Care Provider Encounter Details Date Type Department Care Team (Late st Contact Info) Description 10/22/2024 Orders Only [facility] [address] [place] [address] Kirstin Miller, SEA CAPTAIN [address] [place] [address] Thickened endometrium (Primary Dx) Social History Tobacco [...] 9:20 AM EST Office Visit [facility] [address] [place] [address] Kirstin Miller NP [address] [place] [address] 02/23/2026 10:30 AM EDT Office Visit [facility] [address] [place] [phone] Kirstin Miller NP [address] [place] [address] documented as of this encounter Visit Diagnoses Diagnosis Thickened endometrium- Primary Nonspecific (abnormal) findings on radiological and other examination of genitourinary organs documented in this encounter Additional Health Concerns Assessment Noted Time PHQ-9 Depression Total Score: 1 02/15/20 4:46 PM EDT documented as of this encounter Care Teams Chain Sales Representative Relationship Specialty Start Date End Date Mike Steiner MD [address] [place] [phone] PCP - General Family Medicine 08/20/24 Kirstin Miller NP [address] [place] [address] Nurse Practitioner Family Medicine 08/09/23 documented as of this encounter
--- OUTSIDE RECORDS SUMMARY | 2025-05-28 12:42 | XMS_ITS | Encounter Summary ---
Author Organization [facility] Address [address] [place] [address] Care Team Providers Care Director Geophysical Laboratory Name Role Phone Mike Steiner MD Primary Care Provider [phone] Kirstin Miller NP Unavailable [phone] Mike Steiner MD Primary Care Provider [phone] Encounter Details Date Type Department Care Team [...] helpless? No 02/15/2024 4: 49 PM EDT FELIPE GARCIA Do you prefer to stay at [facility], rather than going out and doing [...] is hopeless? No 02/15/2024 4:49 PM EDT CRAOLE GARCIA Do you think that most peopl e are better off than you are? No 02/15/2024 4:49 PM EDT Janet GARCIA Geriatric Depression Scale ( Short Version) Total 1 02/15/2024 4:49 PM EDT CAROLE GARCIA documented as of this encounter Plan of Treatment Upcoming Encounters Date Type Department Care Team (Late st Contact Info) Description 08/21/2025 9:20 AM EST Office Visit [facility] [address] [place] [address] Kirstin Miller NP [address] [place] [address] 02/23/2026 10:30 AM EDT Office Visit [facility] [address] [place] [address] Kirstin Miller NP [address] [place] [address] documented as of this encounter Procedures Procedure Name Priority Date/Time Associated Diagnosis Comments CA ECHO DOPPLER COMPLETE 02/15/2024 5:50 PM EDT documented in this encounter Results * CA ECHO DOPPLER COMPLETE (02/15/2024 5:50 PM EDT) Anatomical Region Laterality Modality Other 02/15/2024 5:50 PM EDT Narrative 02/15/2024 5:52 PM EDT [address] [address] Cardiology Report Signed Patient: SAEED JOHNSON MR#: [id number] : 1940 Acct:[id number] Age/Sex: 83 / F ADM Date: 02/15/24 Loc: CARD Attending Dr: MONI ROBERSON Ordering Physician: MONI ROBERSON Date of Service: 02/15/24 Procedure(s): CA echo doppler complete Accession Number(s): [id number] cc: Kirstin Miller PIT SLAGMAN; MONI ROBERSON Patient Name: SAEED JOHNSON MR#: [id number] : 1940 Exam Date: 02/15/2024 Ordering Doctor: [...] ROBERSON Signed By: 02/15/241751 DD/ 49 TD/TT: Chair Finisher: Procedure Note Radiology, Radiologist, MD - 02/15/2024 [place] [address] Cardiology Report Signed Patient: SAEED JOHNSON SMR#: [id number] : 1940cct:[id number] Age/Sex: 83 / FADM Date: 02/15/24 Loc: CARD Attending Dr: MONI ROBERSON Ordering Physician: MONI ROBERSON Date of Service: 02/15/24 Procedure(s): CA echo doppler complete Accession Number(s): [id number] cc: Kirstin Miller PIT SLAGMAN; MONI ROBERSON Patient Name: SAEED JOHNSON MR#: [id number] : 1940 Exam Date: 02/15/2024 Ordering Doctor: [...] MONI ROBERSON Signed By:02/15/241751 DD/ 49 TD/TT: Chair Finisher: Generic External Data Provider [facility] Final Result documented in this encounter Visit Diagnoses Not on filedocumented in this encounter Additional Health Concerns Assessment Noted Time PHQ-9 Depression Total Score: 1 02/15/20 4:46 PM EDT documented as of this encounter Care Teams Director Geophysical Laboratory Relationship Specialty Start Date End Date Mike Steiner MD PCP - General Family Medicine 08/09/23 08/19/24 Mike Steiner MD [address] [place] [phone] PCP - General Family Medicine 08/20/24 Kirstin Miller NP [address] [place] [address] Nurse Practitioner Family Medicine 08/09/23 documented as of this encounter
--- OUTSIDE RECORDS SUMMARY | 2025-05-28 12:42 | XMS_ITS | Clinical Summary ---
Author Organization [facility] Address [address] [place] [address] Care Team Providers Care Land Economist Name Role Phone Kirstin Miller MD Primary Care Provider [phone] Allergies Active Allergy Reactions Criticality Noted Date [...] (leg swelling and dyspnea). 90 tablet 3 02/02/20 24 Active pantoprazole (ProtoNix) 40 mg EC tabletIndication s:Acute gastric ulcer without hemorrhage or perforation Take 1 tablet (40 mg) by mouth before breakfast and before evening meal for 196 doses. Do not crush, chew, or split. 60 tablet 3 09/21/20 24 Active polyethylene glycol (Glycolax) 17 gram/dose powderIndication s:Screening for malignant neoplasm of colon Use as directed for colonoscopy prep. Follow Physician's instructions. 238 g 10/23/19 25 Active bisacodyl (Dulcolax) 5 mg EC tabletIndication s:Screening for malignant neoplasm of colon Do not crush, chew, or split. Use as directed for colonoscopy prep. Follow Physician's instructions. 4 tablet 10/23/19 25 Active apixaban (Eliquis) 5 mg tabletIndication s:Paroxysmal atrial fibrillation (CMS/HCC) Take 1 tablet (5 mg) by mouth in the morning and at bedtime. 180 tablet 3 10/29/19 25 Active lisinopril 20 mg tabletIndication s:Primary hypertension Take 1 tablet (20 mg) by mouth once daily as directed. 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 90 tablet 3 11/07/19 25 025 Discontin ued(Reord er) Active Problems Problem [...] 10/16/2024 Overview (11/07/2024): Had MRI brain at [facility] 09/19/24: mod periventricular FLAIR hyperintensities (chronic microvascular ischemia), seq of non acute lacunar infarct right centrum semiovale Non-recurrent acute suppurat shaina otitis media of right ear without spontaneous rupture of tympanic membrane 10/10/2024 Other acute sinusitis 10/10/2024 Acute gastric ulcer without hemorrhage or perfor ation 09/30/2024 Overview (11/07/2024): EGD at [facility] 10/01 mild LA grade A esophagitis, 2 small ulcers Thickened endometrium 09/30/2024 Acute abdominal pain 09/17/2024 Assessment & Plan (09/17/2024 9:19 PM EST): Relevant Hx: CT scan completed at [facility] on 09/17/24 indicated cholecystitis and cholelithiasis Today's Plan: Discussed with Dr. Lombardi, not clear that her abdominal pain is due to acute cholecystitis as lipase, bilirubin, WBC are all WNL and physical exam findings do not correlate well with cholecystitis. 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 05/19/2025 [facility] [address] [place] [address] Magi Tatum MA 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 Patient unable to answer 09/18/2024 [...] age to complete this topic Insurance MEDICARE [address] [place] [address] Advance Directives * Full Code (Latest Code Status on File) Date Activated Date Inactivated Comments 09/17/2024 10:17 PM 09/21/2024 4:43 PM Care Teams Land Economist Relationship Specialty Start Date End Date Kirstin Miller MD [facility] [place] [address] PCP - General 01/16/23
--- OUTSIDE RECORDS SUMMARY | 2025-05-28 12:42 | XMS_ITS | Encounter Summary ---
Author Organization [facility] Address [address] [place] [facility] [place] [address] Care Team Providers Care Counseling Services Director Name Role Phone Kirstin Miller NP Unavailable [phone] Mike Steiner MD Primary Care Provider Encounter Details Date Type Department Care Team (Late st Contact Info) Description 05/22/2025 Bamboo flowsheet [facility] [address] [place] [phone] Kirstin Miller, RONNIE [address] [place] [address] Social History Tobacco Use Types Packs/Day Years [...] 08/21/2025 9:20 AM EST Office Visit [facility] [address] [place] [address] Kirstin Miller, RONNIE [address] [place] [address] 02/23/2026 10:30 AM EDT Office Visit [facility] [address] [place] [address] Kirstin Miller NP [address] [place] [address] documented as of this encounter Visit Diagnoses Not on filedocumented in this encounter Additional Health Concerns Assessment Noted Time PHQ-9 Depression Total Score: 1 02/19/20 25 10:38 AM EDT documented as of this encounter Care Teams Counseling Services Director Relationship Specialty Start Date End Date Mike Steiner MD [address] [place] [phone] PCP - General Family Medicine 08/20/24 Kirstin Miller NP [address] [place] [address] Nurse Practitioner Family Medicine 08/09/23 documented as of this encounter
--- OUTSIDE RECORDS SUMMARY | 2025-05-28 12:42 | XMS_ITS | Encounter Summary ---
Author Organization [facility] Address [address] [facility] [place] [address] Care Team Providers Care Solar Process Engineer Name Role Phone Mike Steiner MD Primary Care Provider [phone] Kirstin Miller ACADEMIC AFFAIRS SPECIALIST Unavailable [phone] Mike Steiner MD Primary Care Provider [phone] Encounter Details Date Type Department Care Team (Late st Contact Info) Description 02/16/2024 Orders Only [facility] [address] [facility] [address] [facility] [place] [address] Jose Roberson MD [address] [place] [address] Social History Tobacco Use Types [...] Office Visit [facility] [address] [place] [address] Kirstin Miller NP [address] [place] [address] 02/23/2026 10:30 AM EDT Office Visit [facility] [address] [place] [address] Kirstin Miller, RONNIE [address] [place] [address] documented as of this encounter Procedures Procedure [...] documented as of this encounter Care Teams Solar Process Engineer Relationship Specialty Start Date End Date Mike Steiner MD PCP - General Family Medicine 08/09/23 08/19/24 Mike Steiner MD [address] [place] [address] PCP - General Family Medicine 08/20/24 Kirstin Miller NP [address] [place] [address] Nurse Practitioner Family Medicine 08/09/23 documented as of this encounter
--- OUTSIDE RECORDS SUMMARY | 2025-05-28 12:42 | XMS_ITS | Clinical Summary ---
Author Organization [facility] Address [address] [place] [address] Care Team Providers Care Direct Mail Clerk Name Role Phone Paul Kirstin Vitale CNP [...] well as surgical risks of DVT, PE, VA, . All questions and concerns were addressed. [...] - Currently in sinus rhythm - Continue ENGRAVER Eliquis and metoprolol - Tele order Assessment [...] 74 - 99 mg/dL Final Comment: The [employer] Diabetes Association (ADA) provides guidance for cutoff [...] Standards of Medical Care in Diabetes 2016, [employer] Diabetes Association. Diabetes Care. 2016.39(Suppl 1). Assessment & Plan (10/16/2024 11:03 PM EST): - Blood glucose 127 in the ED - Continue ENGRAVER metformin and glipizide - SSI - Carb [...] Monitor gilmer outpt- most likely d/c tomorrow [facility] POD #2 Pain controll- toradol added for [...] had LAD stent placed 2005 followed per Import Manager Dr. Roberson Resolved Problems Problem Noted Date [...] drink = 0.6 oz pur e alcohol) [facility] Utilities Answer Date Recorded In the past 12 months has th e [employer], gas, oil, or water [employer] threatened to shut off services in your [...] any time in the past 12 m [facility], were you homeless or living in a senior living (including now)? No 10/17/2024 Area Deprivation Index Answer Date Terry rded National Score (1-100), lower number is lower ri sk 63 10/17/2024 State Score (1-10), lower number is lower risk 4 10/17/2024 Data from: https://www.neighborhoodatlas.medicine.[facility].edu/. Last address used for calculation [address] [...] Vaccine (1 - 1-dose 75+ series) 2015 Advance Directive Discussion 10/09/2024 HbA1C 06/02/2025 12/03/2024, 08/20/2024 Influenza Vaccine (#1) 2025 , 07/25/2023, 08/08/2022, Additional history exists Pneumococcal Vaccine: 50+ Completed 07/26/2016, Insurance [facility] [place] [address] [address] [id number] Advance Directives * Full Code (Latest Code Status on File) Date Activated Date Inactivated Comments 10/16/2024 8:19 PM 10/21/2024 9:41 PM Question Answer Comments Full Code Order Discussed With: Discussion Not M edically Appropriate * Full Code Date Activated Date Inactivated Comments 03/28/2022 5:55 PM 04/07/2022 4:54 PM Question Answer Comments Full Code Order Discussed With: Patient Care Teams Direct Mail Clerk Relationship Specialty Start Date End Date Kirstin Miller, FINAL INSPECTOR PAPER [facility] [place] [address] PCP - General Family Medicine 10/16/24
--- OUTSIDE RECORDS SUMMARY | 2025-05-28 12:46 | XMS_ITS | CCD ---
Author Organization [facility] Informat ion Partnership [facility] Care Team Providers Care Double Bottom Driver Name Role Phone MD Atul Vera Attending Provider [phone] NON STAFF Primary Care Provider UnavailDO Howard Lennon Emergency Provider Galindo Miller Primary Care Provider MD Perlita Davis Admit Provider Al MD Perlita Pennington Attending Provider [phone] DO Colby Astorga Other Provider MD Rupert Anthony Attending Provider Atul Vera Unavailable MARGARETTE LINCOLN Attending Unavailable MARGARETTE LINCOLN Admitting Unavailable MD Kingston Gao Admit Provider MD Kingston Gao Attending Provider [phone] ELFEGO Dowling Other Provider Unavailable ELFEGO Winston Other Provider Unavailable ELFEGO Wahl Other Provider Unavailable ELFEOG Moise Other Provider Unavailable ELFEGO Marc Other Provider Unavailable ELFEGO Campbell Other Provider Unavailable ELFEGO Buck Other Provider Unavailable MD Cyndee Aguirre Other Provider MD Shadi Chahal Other Provider OMID Lorenz Other Provider DO Shelby Landrum Other Provider MD Kieran Scott Other Provider [phone] DO Jayesh Clark Other Provider MD Justyn [...] Provider MD Dwight Kelley Other Provider Bailey CURING PICKLING PACKER-Carlos Pleitez Other Provider MD Saulo Dukes Other [...] Care Provider UnavailMD Atul Thompson Attending Provider Galindo Miller Primary Care Provider Unavailable Primary Care Provider Unavailabl e Unavailable Primary Care Provider Unavailabl e AICHHOLZ, TRIALS MANAGER GALINDO Primary Care Unavailable DR SHEILA INIGUEZ V Consulting Unavailable AICHHOLZ, TRIALS MANAGER GALINDO Admitting Unavailable AICHHOLZ, TRIALS MANAGER GALINDO Attending Unavailable AICHHOLZ, TRIALS MANAGER GALINDO Consulting Unavailable AICHHOLZ, TRIALS MANAGER GALINDO Primary Care Unavailable AICHHOLZ, TRIALS MANAGER GALINDO Admitting Unavailable AICHHOLZ, TRIALS MANAGER GALINDO Attending Unavailable AICHHOLZ, TRIALS MANAGER GALINDO Consulting Unavailable AICHHOLZ, TRIALS MANAGER GALINDO Primary Care Unavailable AICHHOLZ, TRIALS MANAGER GALINDO Admitting Unavailable AICHHOLZ, TRIALS MANAGER GALINDO Attending Unavailable AICHHOLZ, TRIALS MANAGER GALINDO Primary Care Unavailable MISC, DOCTOR Attending Unavailable MISC, DOCTOR Admitting Unavailable AICHHOLZ, TRIALS MANAGER GALINDO Primary Care Unavailable AICHHOLZ, TRIALS MANAGER GALINDO Admitting Unavailable AICHHOLZ, TRIALS MANAGER GALINDO Attending Unavailable AICHHOLZ, TRIALS MANAGER GALINDO Consulting Unavailable AICHHOLZ, TRIALS MANAGER GALINDO Primary Care Unavailable DR SHEILA INIGUEZ V Consulting Unavailable AICHHOLZ, TRIALS MANAGER GALINDO Admitting Unavailable AICHHOLZ, TRIALS MANAGER GALINDO Attending Unavailable AICHHOLZ, TRIALS MANAGER GALINDO Consulting Unavailable Atul Vera P Admitting [...] Unavailable Mike Steiner MD Primary Care Provider [phone] Brimegan CURING PICKLING PACKER, Galindo Unavailable Mike Steiner MD Primary Care Provider Paul TRIALS MANAGER, Galindo Vitale Primary Care Provider [phone] JOSE ROBERSON Attending Unavailable ANNELISE PIERCE Referring Unavailable RITIKA, MIRRA Referring Unavailable SANDOVAL, [...] 4 GI intolerance, Nausea Only, GI Upset [facility] Healthcare Work Phone: Medications Current Medications Medication [...] Monitoring Suppl (True Metrix Meter) w/Device kit (6 sources) Start: 12-05-19 Blood Glucose Monitoring Suppl [...] on above: Take 1 capsule by mo [facility] twice daily. fluconazole 150 mg oral [...] 2022 12:00am take 1 capsule by mo [facility] every twenty-four hours Gabapentin 100 MG 1 capsule Orally Once a day Active Comment on above: Take 100 mg by mouth three times daily. glipiZIDE 5 mg oral tablet (20 sources) Sulfonylurea Start: 4 End: take 1 tablet by mouth in the morning glipiZIDE (Glucotrol) 5 MG tablet Indications: Type 2 diabetes mellitus without complications (HCC) Take 1 tablet (5 mg) by mouth in the morning and 1 tablet (5 mg) in the evening. Take before meals. 180 tablet 1 05/22/2025 08/20/2025 Active Start: 03-09-2022 End: 04-14-2022 take 5 [...] 2022 12:00am take 4 tablets by mo ut once daily lisinopril (ZESTRIL, PRINIVIL) 5 mg [...] tablet (20 sources) Biguanide Start: 05-22-2024 End: 08-20-2025 take 1 tablet by mouth in the morning metFORMIN (Glucophage) 1000 MG tablet Indications: Type 2 diabetes mellitus without complications (HCC) Take 1 tablet (1,000 mg) by mouth in the morning and 1 tablet (1,000 mg) in the evening. Take with meals. 180 tablet 1 05/22/2025 08/20/2025 Active Start: 04-07-2022 take 1 tablet by [...] mouth once daily. Multiple Vitamins-Minerals (Oncovite) tablet (17 sources) Start: 10-21-19 take 1 tablet by mouth in the morning Multiple Vitamins-Minerals (Oncovite) tablet Take 1 tablet by mouth in the morning. 10/21/2024 Active nitroglycerin 0.4 mg sublingual tablet (16 sources) Nitrate Vasodilator Start: 11-07-19 nitroglycerin (Nitrostat) 0.[address] 0.4 mg under the tongue 11/07/2024 Active End: 08-20-2024 nitroglycerin (Nitrostat) 0. [address] 0.4 mg under the tongue every 5 (five) minutes if needed for chest pain 08/20/2024 Discontinued (Therapy completed) pantoprazole 40 mg delayed release oral tablet (20 sources) Proton Pump Inhibitor Start: 09-21-2024 End: 08-20-2025 take 1 tablet by mouth in the morning pantoprazole (ProtoNix) 40 MG EC tablet Indications: Acute gastric ulcer without hemorrhage or perforation Take 1 tablet (40 mg) by mouth in the morning and 1 tablet (40 mg) in the evening. Take before meals. 180 tablet 1 05/22/2025 08/20/2025 Active spironolactone 25 mg oral tablet (20 [...] Classification Problem Date Documented Da te Episodic/Chronic Calculus of urinary tract (1 source) Calculus [...] Coronary arteriosclerosis; Translations: [Atherosclerotic heart disease of [place] coronary artery without angina pectoris] Onset: 11-17-2021 [...] specified body structures] Onset: 09-30-2024 09-30-2024 Chronic Other screening for suspected conditions (not mental disorders or infectious disease) (20 sources) Abnormal results of thyroid function studies; Translations: [Thyroid function tests abnormal] Onset: 08-15-2022 Episodic Peripheral and visceral atherosclerosis (20 sources) Peripheral [...] [Unspecified abdominal pain] Onset: 09-17-2024 10-16-2024 Episodic Acquired foot deformities (20 sources) Foot-drop; Translations: [...] Episodic Other nutritional; endocrine; and metabolic disorders (10 sources) Weight decreased; Translations: [Abnormal weight loss] Onset: 10-18-2024 10-18-2024 Episodic Other upper respiratory infections (20 sources) Acute sinusitis; Translations: [Other acute sinusitis] Onset: 10-10-2024 Resolved: 12-03-2024 10-10-2024 Episodic Otitis media and related conditions (20 sources) Acute suppurative otitis media without spontaneous [...] AUTO DIFFon BASOPHILS ABSOLUTE AUTO 0 [facility] Basophils/100 WBC (Bld) 0.4 % 0.2 - 2.0 % [facility] Eosinophils/100 WBC (Bld) 3.7 % 0.9 - 7.0 % [facility] Erythrocyte distribution width (RBC) [Ratio] 13 % 11.0 - 15.0 % [facility] Hematocrit (Bld) [Volume fraction] 41.9 % 36.0 - 48.0 % [facility] Hemoglobin (Bld) [Mass/Vol] 13 g/dL 12.0 - 16.0 g/dL [facility] IMMATURE GRANULOCYTES ABS AUTO 0.01 [facility] Immature granulocytes/100 WBC (Bld) 0.1 % 0.0 - 0.5 % [facility] Interpretation and review of laboratory results Abnormal [facility] LYMPHOCYTES ABSOLUTE AUTO 3.7 [facility] Lymphocytes/100 WBC (Bld) 47.2 % 20.5 - 60.0 % [facility] MCH (RBC) [Entitic mass] 30.4 pg 26. 7 - 34.0 pg [facility] MCHC (RBC) [Mass/Vol] 31 g/dL 29.9 - 35.2 g/dL [facility] MCV (RBC) [Entitic vol] 98.1 fL 81.0 - 99.0 fL [facility] MONOCYTES ABSOLUTE AUTO 0.6 [facility] Monocytes/100 WBC (Bld) 8.3 % 1.7 - 12.0 % [facility] NEUTROPHILS ABSOLUTE AUTO 3.1 [facility] Neutrophils/100 WBC (Bld) 40.3 % Low 43.0 - 75.0 % [facility] Platelet mean volume (Bld) [Entitic vol] 9.4 fL Low 9.5 - 13.5 fL [facility] TBH EO # 0.3 [facility] TB PLT 283 [facility] RBC 4.27 [facility] WBC 7.7 [facility] CNOVon 01-17-2025 CNOV Office Visit ([facility]ST[facility] ) SAEED SARABIA ([id number]) 1940 F Date Time Provider Department 01/17/25 10:30 AM DINORA CARROLL [facility] During your visit today, we recorded the following information about you: Pulse Blood pressure Weight 62/minute 167/74 73.1 kg Dinora Carroll APRN.TRIALS MANAGER 01/17/2025 1:31 PM Signed Consultation requested by [...] began experiencing abdominal pain. Initial evaluations at [facility] suggested the presence of multiple gallstones, with recommendations for cholecystectomy. However, subsequent evaluations by another physician at the same hospital contradicted this recommendation, stating that surgery was not necessary. After a week of hospitalization and multiple tests, no definitive cause for the abdominal pain was identified. Due to persistent severe pain, patient was taken to the [facility] Emergency Room, where further evaluations were conducted, including an endoscopy and various scans. A colonoscopy performed at [facility] revealed non-cancerous polyps, which were removed. During the evaluations at [facility], a scan indicated uterine thickening, leading to concerns about potential cancer. A bookkeeping machine mechanic at [facility] subsequently removed a polyp measuring 2 cm by 9 cm from the uterus and cervix. Following this procedure, patient's abdominal pain reportedly resolved. Patient has a known history of gallstones, with conflicting medical opinions on the necessity of cholecystectomy. One physician at [facility] recommended immediate surgery, stating the gallbladder was completely full of stones, while another physician at [facility] advised against it. Patient has also [...] (TYLENOL) 3 (more content not included)... [facility] HISTORY PHYSICALon HISTORY PHYSICAL HNO ID: [id number] Author: DINORA CARROLL APRN.TRIALS MANAGER Service: ? Author Type: Nurse Practitioner Type: [...] began experiencing abdominal pain. Initial evaluations at [facility] suggested the presence of multiple gallstones, with recommendations for cholecystectomy. However, subsequent evaluations by another physician at the same hospital contradicted this recommendation, stating that surgery was not necessary. After a week of hospitalization and multiple tests, no definitive cause for the abdominal pain was identified. Due to persistent severe pain, patient was taken to the [facility] Emergency Room, where further evaluations were conducted, including an endoscopy and various scans. A colonoscopy performed at [facility] revealed non-cancerous polyps, which were removed. During the evaluations at [facility], a scan indicated uterine thickening, leading to concerns about potential cancer. A bookkeeping machine mechanic at [facility] subsequently removed a polyp measuring 2 cm by 9 cm from the uterus and cervix. Following this procedure, patient's abdominal pain reportedly resolved. Patient has a known history of gallstones, with conflicting medical opinions on the necessity of cholecystectomy. One physician at [facility] recommended immediate surgery, stating the gallbladder was completely full of stones, while another physician at [facility] advised against it. Patient has also [...] once daily (more content not included)... [facility] CNOVon 12-17-2024 CNOV Office Visit (OGF[facility] ) SAEED SARABIA ([id number]) 1940 F Date Time Provider Department 12/17/24 9:00 AM LUCIANA GREEN [facility] During your visit today, we recorded the following information about you: Pulse Blood pressure Weight Height 70/minute 120/70 72.5 kg 1.676 m Cara Young MA 12/17/2024 12:51 PM Signed Svp Research And Strategic Analysis offered: Patient declines. Luciana Green DO 12/17/2024 [...] with patient. 2. Postop restrictions reviewed. Luciana Green, Allergies As of Date: 12/17/2024 Noted Allergy [...] Status:Closed by LUCIANA GREEN on 12/17/24 [facility] ANES POSTPROC EVALon 025 ANES POSTPROC EVAL HNO ID: [id number] Author: BERLIN NAQVI MD Service: Anesthesiology Author [...] December 06, 2024 TIME: 11:36 AM CSN: [id number] [facility] ANES PRE-OPon 12-06-2024 ANES PRE-OP HNO ID: [id number] Author: BERLIN NAQVI MD Service: Anesthesiology Author [...] Time BP 160/68 12/06/24 0637 Pulse 76 12/06/24 0637 Resp 16 12/06/24 0637 Temp 36.3 ?C (97.3 ?F) 12/06/24 0637 SpO2 98 % 12/06/24 0637 No current facility-administered medications on file as [...] December 06, 2024 TIME: 7:27 AM CSN: [id number] [facility] BRIEF OP NOTon 12-06-2024 BRIEF OP NOT HNO ID: [id number] Author: ITZ AVALOS RN Service: ? Author Type: Registered Nurse Type: Brief Op Note Filed: 12/06/2024 09:02 Note Text: Per Surgeon, Fluid deficit is 285cc. [facility] TYPE + SCREENon 12-06-19 25 ABO O [facility] Rh Nom (Bld) Positive [facility] TYPE AND SCREEN EXPIRATION 12/09/2024 23:59 [facility] Specimen Type: BLOOD SPECIMEN Ordering Facility: [facility] Address: [address] [place] [address] BLOOD BANK CLIA [id number] [place] [address] [place] [facility] NURSING PROGon 12-06-2024 NURSING PROG HNO ID: [id number] Author: KATHY TAVERAS RN Service: Nursing Author [...] Signed By: Kathy Taveras RN In Department: [facility] OPERATING ROOM Normal [facility] OPERATIVE NOon 12-06-2024 OPERATIVE NO HNO ID: [id number] Author: LUCIANA GREEN DO Service: Obstetrics Author Type: Physician Type: Operative Report Filed: 12/06/2024 09:21 Note Text: CURRICULUM DEVELOPMENT COORDINATOR OPERATIVE/PROCEDURE REPORT LOG ID: [id number] Surgery/Procedure Date: 12/06/2024 Incision/Procedure Start Time: 8:09 AM Incision Close/Procedure End Time: 8:47 AM Surgeon(s)/Procedurali st(s) and Beveler(s): Surgeons and Role: * Luciana Green DO [...] 06, 2024 TIME: 9:16 AM PAGER/CONTACT #: [facility] Pathology biopsy report Carlos (Tiss)on 12-06-2024 AP DISCLAIMER [facility] Comment on above: Order Comment: Speci men Type: TISSUE SPECIMENOrdering Facility: [facility] Address: [address] [place] [address] Result Comment: Ish beltrán Developed Test (LDT) Disclaimer: Performance characteristics of immunohistochemical, immunofluorescent, and chromogenic in-situ hybridization tests have been determined by the performing laboratory within [facility]'s [facility] Pathology and Laboratory Medicine Department ([facility], [facility], [facility], [facility], [facility], [facility], or [facility]) in a manner consistent with CLIA requirements. One or more of these tests may not have been cleared or approved by the FDA. [facility] is regulated under CLIA as qualified to perform high-complexity testing. These tests are used for clinical purposes. These should not be regarded as investigational or for research. Positive and negative controls stain appropriately. Performed By: #### 6 6121-5 ####[facility] LABCLIA [id number] [place] [id number] [place] CASE REPORT Normal [facility] Comment on above: Order Comment: Speci men Type: TISSUE SPECIMENOrdering Facility: [facility] Address: [address] [place] [address] Result Comment: Surg [facility] Pathology Report Case: [id number] Authorizing Provider: Luciana Green DO Collected: 12/06/2024 08:36 AM Ordering Location: [facility] Received: 12/06/2024 09:22 AM Operating Room Pathologist: Robyn Minaya MD Specimens: A) - Endometrium, Polyp B) - Endometrium, Curettings Performed By: #### 6 6121-5 ####[facility] LABIA [id number] [address] [place] CLINICAL HISTORY [facility] Comment on above: Order Comment: Speci men Type: TISSUE SPECIMENOrdering Facility: [facility] Address: [address] [place] [address] Result Comment: Pre- op diagnosis: Endometrial polyp [N84.0] Performed By: #### 6 6121-5 ####[facility] LABIA [id number] [address] OF [facility] FINAL DIAGNOSIS [facility] Comment on above: Order Comment: Speci men Type: TISSUE SPECIMENOrdering Facility: [facility] Address: [address] [place] [address] Result Comment: A. U terus, endometrium, polypectomy -Fragments of benign endometrial polyp B. Uterus, endometrium, dilation and curettage -Fragments of superficial inactive endometrium -Fragments of benign endometrial polyp at 1231 EST Performed By: #### 6 6121-5 ####[facility] LABCLIA [id number] [address] [address] [place] FINAL PERFORMING LAB [facility] Comment on above: Order Comment: Speci men Type: TISSUE SPECIMENOrdering Facility: [facility] Address: [address] [place] [address] Result Comment: Diag nostic interpretation performed at: [facility], [address] [place] [address] CLIA# [id number] Log Feeder: Liam Naik MD Performed By: #### 6 6121-5 ####[facility] LABCLIA [id number] [place] [address] [place] GROSS DESCRIPTION Normal [facility] Comment on above: Order Comment: Speci men Type: TISSUE SPECIMENOrdering Facility: [facility] Address: [address] [place] [address] Result Comment: A. E ndometrium, Polyp Received [...] 2024 1:33 PM Gross examination performed at [facility], [address] [place] [address] Performed By: #### 6 6121-5 ####[facility] LABCLIA [id number] [place] [id number] [place] TYPE + SCREENon 12-06-2024 ABO O [facility] Comment on above: Order Comment: Speci men Type: BLOOD SPECIMENOrdering Facility: [facility] Address: [address] [place] [address] Performed By: #### T SCR ####[facility] [id number] [place] [address] [place] Rh Nom (Bld) Positive Normal [facility] Comment on above: Order Comment: Speci men Type: BLOOD SPECIMENOrdering Facility: [facility] Address: [place] [place] [address] Performed By: #### T SCR ####[facility] [id number] [place] [id number] [facility] TYPE AND SCREEN EXPIRATION 12/09/2024 23:59 [facility] Comment on above: Order Comment: Speci men Type: BLOOD SPECIMENOrdering Facility: [facility] Address: [place] [id number] Performed By: #### T SCR ####[facility] [id number] [address] HbA1c (Bld) [Mass fraction]o n 12-03-2024 Interpretation and review of laboratory results Abnormal [facility] - Hematology and Cell countson 12-03-2024 HbA1c (Bld) [Mass fraction] 5.80 % [facility] XR CHEST 2V FRONTAL/LATon * * *Final [...] skeletal findings. IMPRESSION: No acute radiographic abnormality. Spout Positioner: ROSS Transcribe Date/Time: Nov 18 2024 12:10P Dictated by : VIOLET MONTENEGRO MD This examination was interpreted and the report reviewed and electronically signed by: VIOLET MONTENEGRO MD on Nov 18 2024 12:12PM EST [id number]^SI^ [facility]N [facility], Radiologist, - 11/19/2024 * * *Final Report* * [...] skeletal findings. IMPRESSION: No acute radiographic abnormality. [facility]out [facility] Transcribe Date/Time: Nov 18 2024 12:10P Dictated by : VIOLET MONTENEGRO MD This examination was interpreted and the report reviewed and electronically signed by: VIOLET MONTENEGRO MD on Nov 18 2024 12:12PM EST [id number]^SI^ ACN [facility] XR CHEST 2V FRONTAL/LATOrder ed By: Radiologist Radiology on 11-18-2024 [facility] Work Phone: HISTORY PHYSICALon HISTORY PHYSICAL HNO ID: [id number] Author: MAXINE SINGH APRN.AUTO COLLISION REPAIR INSTRUCTOR Service: ? Author Type: Clinical Nurse Specialist Type: H&P Filed: 11/18/2024 12:26 Note Text: [facility] HISTORY AND PHYSICAL EXAMINATION SERVICE DATE: 11/14/2024 SERVICE TIME: 3:47 PM PRIMARY CARE PHYSICIAN: Galindo Miller CNP, TRIALS MANAGER Assessment Patient has the following medical conditions which may affect ashley-operative course: Atrial fibrillation (HCC) Assessment: takes Eliquis daily, will stop 2 days pre op,currently stable Benign essential HTN Assessment: takes Lisinopril,Metoprolol, stable BP 147/56 taken at [facility] visit 11/15/24 CAD (coronary artery disease) Assessment: had LAD stent placed 2005 followed per Improvement Lead Dr. Roberson DM type 2 (diabetes mellitus, type 2) ([facility]) Assessment: takes Metformin,Glipizide currently stable Glucose Date Value Ref Range Status 10/20/2024 135 (H) 74 - 99 mg/dL Final Comment: The [place] Diabetes Association (ADA) provides guidance for cutoff [...] Standards of Medical Care in Diabetes 2016, [place] [employer] Association. Diabetes Care. 2016.39(Suppl 1). HLD [...] large neck Non-male patient STOP-Bang Score: 1 [id number] Score: Age: >=75 Sex: female CHF history: No Hypertension history: Yes Stroke/TIA/thromboembo lism history: No Vascular disease history: No Diabetes history: Yes [id number] Score: 5 ARISCAT Score: Age: >80 Preoperative [...] at this time: cardiology (cardiac clearance in [facility] of 11/07/[address] Jose Roberson). [...] W/O DANDC (more content not included)... [facility] XR CHEST 2V FRONTAL/LATon XR CHEST [...] skeletal findings. IMPRESSION: No acute radiographic abnormality. Spout Positioner: [facility] Transcribe Date/Time: Nov 18 2024 12:10P Dictated by : VIOLET MONTENEGRO MD This examination was interpreted and the report reviewed and electronically signed by: VIOLET MONTENEGRO MD on Nov 18 2024 12:12PM EST [id number] [facility] Radiology Study observation (narrative) [facility] HISTOLOGY - TISSUE EXAMon LAB AP CASE REPORT Normal [facility] Comment on above: Result Comment: Surg ical Pathology Case: [id number] Authorizing Provider: Bradford Daivs MD Collected: 11/13/2024 1100 Ordering Location[facility] Received: 11/13/2024 [facility] Pathologist: Cyndee Eden MD Specimens: A) - Large Intestine, Cecum, cecum polyp to r/o adenoma B) - Large Intestine, Right/Ascending Colon, asending EMR polyp to R/O adenoma Performed By: #### L [id number] ####[facility] (BEAKER)[address] [place] [address] LAB AP CLINICAL INFORMATION Order Diagnoses Normal [facility] Comment on above: Result Comment: R10. 9 - Abdominal pain, unspecified site [ICD-10-CM] Performed By: #### L [id number] ####[facility] (BEAKER)[address] [place] [address] LAB AP DIAGNOSIS COMMENT B. Due to exten sive specimen fragmentation, it is not possible to differentiate a sessile serrated adenoma from a hyperplastic polyp. Suggest endoscopic correlation and close follow-up. [facility] Comment on above: Performed By: #### L [id number] ####[facility] ([facility])[address] [place] [address] LAB AP GROSS DESCRIPTION [facility] Comment on above: Result Comment: A. L arge Intestine, Cecum. Part A is received in formalin labeled Saeed Riparius and cecum polyp to rule out adenoma . It consists of 2 frank-pink, irregular pieces of mucosal tissue measuring 0.2 cm and 0.4 cm in greatest dimension. The specimen is submitted in toto in 1 cassette. Brandi Menendez, Pathologists' Beveler student Trinidad Ornelas Pathologists' Beveler student Johnnie. Large Intestine, Right/Ascending Colon. Part [...] to a surgical board. Brandi Menendez, Pathologists' Beveler student Trinidad Ornelas, Pathologists' Beveler student Performed By: #### L [id number] ####[facility] ([facility])[address] [place] [address] LAB AP MICROSCOPIC DESCRIPTION Microscopic examination performed. [facility] Comment on above: Performed By: #### L [id number] ####[facility] ([facility])[address] [place] [address] LAB AP REPORT FINAL DIAGNOSIS NARRATIVE [facility] Comment on above: Result Comment: A. C olon, cecal polyp, polypectomy: - Tubular adenoma. - No high grade dysplasia is seen. B. Colon, ascending polyp, polypectomy: - Multiple fragments of serrated polyp with no dysplasia. - See comment. Performed By: #### L [id number] ####[facility] ([facility])[address] [place] [address] POCT GLUCOSE METER UNSOLICIT ED RESULTSon 11-13-2024 Glucose [Mass/Vol] 120 mg/dL High 70-[address] [facility] Comment on above: Order Comment: Waive d Testing in the ED is performed under the ED CLIA certificate #[id number]. Result Comment: jhag eman Performed By: #### L [id number] #### [facility] (BEAKER) [address] [place] [address] Prep for Procedureon 025 Prep for Procedure [id number] Saeed Sarabia 1940 F Date Provider Department Center 11/13/2024 [facility]LL[facility] CH[facility] PREOP [facility] Family History Problem Relation Age of Onset Heart attack Mother Coronary artery disease Mother Heart attack Father Coronary artery disease Father Multiple sclerosis Sister Family Status - Relation Status Age at Mother Father Sister [facility] CNPMalu 11-07-2024 CNPN Telephone (OGFVWE) SAEED SARABIA ([id number]) 1940 F Date Time Provider Department 11/07/24 LUCIANA GREENFVWE During your visit today, we recorded the following information about you: Alton Wang 11/07/2024 4:33 PM Signed Improvement Lead office called to give update from office [...] Status:Closed by ALTON WANG on 11/14/24 [facility] HPon 11-07-2024 [facility] Cardiology - [facility] Subjective Saeed Sarabia is a 84 y.o. year old female patient being seen for 9 mo follow up CAD, CHF, PAF, and hypertension. She needs clearance for colonoscopy scheduled 11/13/2024 at [facility] with Dr. Davis. Patient also states she needs clearance for D&C at [facility] for uterine polyp. Denies chest pain, SOB, [...] Mood and (more content not included)... [facility] Office Visiton 11-07-2024 Follow-up visit [id number] Saeed Sarabia 1940 F Date Provider Department Center 11/07/2024 [facility]-JOSE ROBERSON [facility] Family History Problem Relation Age of Onset Heart attack Mother Coronary artery disease Mother Heart attack Father Coronary artery disease Father Multiple sclerosis Sister Family Status - Relation Status Age at Mother Father Sister Level of Service:39204 MD OFFICE/OUTPATIENT ESTABLISHED MOD MDM 30 MIN [facility] Jose Cruz 11-05-2024 [place] Telephone (OGFVWE) SAEED SARABIA ([id number]) 1940 F Date Time Provider Department 11/05/24 LUCIANA GREEN OGFVWE During your visit today, we recorded the following information about you: Rehan Rashid RN 11/05/2024 11:19 AM Signed ----- Message from Luciana rGeen DO sent at 11/04/2024 4:08 PM EST ----- Regarding: chad TRACIE Zelaya, Can you let this patient or her know that I was unable to reach her industrial cleaner and to have them tell the industrial cleaner to review my note and that she is going to have surgery and they will need recs. Epic wont let me message him due to him being at [place] but we can see things in care [...] Status:Closed by REHAN RASHID on 11/05/24 [facility] CNOVon 11-04-2024 CNOV Office Visit (OGFVWE ) SAEED SARABIA ([id number]) 1940 F Date Time Provider Department 11/04/24 [...] OB History No obstetric history on file. [employer] History LMP: Postmenopausal Age at Menarche: Age at First : Age at Menopause: [employer] History Comments: Sexual Activity: Not Currently; No [...] well as surgical risks of DVT, PE, WA, . All questions and concerns were addressed. Pt is willing to accept a blood transfusion in the case of excessive blood loss. She is agreeable to Exam under anesthesia, operative hysteroscopy, dilation and curettage, polypectomy, possible blood transfusion and informed consent was obtained. - Will need cardiology clearance, tony foss. Will attempted to reach out to Dr. Roberson to make him aware. Pt has an appointment with him in the coming weeks. Orders: SURGICAL REQUEST - ELECTIVE (05/2020) Luciana Green DO Medical Decision Making: Problems: Moderate: New problem with uncertain prognosis Risk: Moderate: Decision on minor surgery w/ risk factors Medical Decision Making Level: 4 - Mode (more content not included)... [facility] CASE REPORT [facility] Comment on above: Surgical Pathology R eport Case: [id number] Authorizing Provider: Gabriela Centeno MD Collected: 10/29/2024 10:40 AM Ordering Location: OB/Gynecology Received: 10/29/2024 11:58 AM Pathologist: Sabina Santiago MD Specimen: Endometrium, Biopsy, endonetrium [facility] CLINICAL HISTORY thickened endometri um on CT and pelvic ultrasound, large polyp prolapsing out of the cervix appears to be attached to endometrial polyp. growt, no bleeding [facility] Sections show limi rashi superficial strips of inactive endometrium without intact underlying stroma. There is no evidence of malignancy in this specimen. An endometrial curetting is recommended if clinical indicated. [facility] FIN[facility] Comment on above: A. Endometrium, biop sy: - Superficial strips of inactive endometrium, see comment. FINAL PERFORMING LAB [facility] Comment on above: Diagnostic interpret ation performed at: [facility], [facility], Desk [address]IA# [id number] Log Feeder: Liam Naik MD [facility] GROSS DESCRIPTION [facility] Comment on above: A. Endometrium, Biop sy Received in formalin are multiple frank, soft feathery segments of tissue mixed with mucinous material aggregating to 0.3 x 0.1 x 0.1 cm. Totally submitted in one cassette. February not survive processing. Gross examination performed at [facility], [address] [place] [id number] [facility] 10/29/2024 5:17 PM Specimen Type: CASIU E SPECIMEN Ordering Facility: [facility] Address: [address], [place] [id number] Original Ordering Provider: GABRIELA CENTENO [facility] 10-30-2024 [facility] Telephone (OBGFVC) SAEED SARABIA ([id number]) 1940 F Date Time Provider Department 10/30/24 GABRIELA CENTENO [employer] During your visit today, we recorded the [...] Encounter Status:Closed by GABRIELA CENTENO on 10/30/24 [facility] CNOVon 10-29-2024 CNOV Office Visit (NBDH ) SAEED SARABIA ([id number]) 1940 F Date Time Provider Department 10/29/24 12:30 PM BRENDON DORSEY [facility] During your visit today, we recorded the following information about you: Brendon Dorsey MD 10/29/2024 3:53 PM Signed [place] [facility] New Patient Evaluation Date: October 29, 2024 Patient Name: Saeed Sarabia [facility] was asked by to evaluate Saeedjak Wilkinsphreys. Our recommendations of care will be communicated by shared medical record. Reason for Evaluation/Chief complaint: memory concerns Accompanied by: SUBJECTIVE: HPI: Saeed Sarabia is a 84 year old Right handed female who presents to the [facility] for an initial evaluation. Patient has been [...] Never D (more content not included)... [facility] CNOV Office Visit (OBGYST ) SAEED SARABIA ([id number]) 1940 F Date Time Provider Department 10/29/24 10:00 AM US TECH 1 [facility] During your visit today, we recorded the following information about you: Pulse Blood pressure Weight Height 66/minute 155/73 68 kg 1.676 m Gabriela Centeno MD 10/29/2024 8:34 PM Signed Saeed Sarabia is a 84 year old No obstetric history on file. here for SIS. Referred by: Luciana Green [id number] [address] Chief Complaint: Thickened endometrium Endometrial Biopsy: No [...] CASSY GREEN (more content not included)... [facility] SURGICAL PATHOLOGYon 025 CASE REPORT [facility] Comment on above: Order Comment: Speci men Type: TISSUE SPECIMENOrdering Facility: [facility] Address: [address] [place] [address] Result Comment: Surg ical Pathology Report Case: [id number] Authorizing Provider: Gabriela Centeno MD Collected: 10/29/2024 10:40 AM Ordering Location: OB/Gynecology Received: 10/29/2024 11:58 AM Pathologist: Sabina Santiago MD Specimen: Endometrium, Biopsy, endonetrium Performed By: #### S ####[facility] LABCLIA [id number] [place] [address] [place] CLINICAL HISTORY thickened endometriu m on CT and pelvic ultrasound, large polyp prolapsing out of the cervix appears to be attached to endometrial polyp. growt, no bleeding [facility] Comment on above: Order Comment: Speci men Type: TISSUE SPECIMENOrdering Facility: [facility] Address: [address] [place] [address] Performed By: #### S ####[facility] LABCLIA [id number] [place] [address] [place] DIAGNOSIS COMMENT Sections show limite d superficial strips of inactive endometrium without intact underlying stroma. There is no evidence of malignancy in this specimen. An endometrial curetting is recommended if clinical indicated. [facility] Comment on above: Order Comment: Speci men Type: TISSUE SPECIMENOrdering Facility: [facility] Address: [address] [place] [address] Performed By: #### S ####[facility] LABCLIA [id number] [place] [address] [place] FINAL DIAGNOSIS [facility] Comment on above: Order Comment: Speci men Type: TISSUE SPECIMENOrdering Facility: [facility] Address: [address] [place] [address] Result Comment: A. E ndometrium, biopsy: - Superficial strips of inactive endometrium, see comment. Performed By: #### S ####[facility] LABCLIA [id number] [place] [address] [place] FINAL PERFORMING LAB [facility] Comment on above: Order Comment: Speci men Type: TISSUE SPECIMENOrdering Facility: [facility] Address: [address] [place] [address] Result Comment: Diag nostic interpretation performed at: [facility], [address] [place] [address] CLIA# [id number] Log Feeder: Liam Naik MD Performed By: #### S ####[facility] LABIA [id number] [address] STATES OF [facility] GROSS DESCRIPTION Normal [facility] Comment on above: Order Comment: Speci men Type: TISSUE SPECIMENOrdering Facility: [facility] Address: [address] [place] [address] Result Comment: A. E ndometrium, Biopsy Received in formalin are multiple frank, soft feathery segments of tissue mixed with mucinous material aggregating to 0.3 x 0.1 x 0.1 cm. Totally submitted in one cassette. May not survive processing. Gross examination performed at [facility], [address] [place] [address] 10/29/2024 5:17 PM Performed By: #### S ####[facility] LABIA [id number] [place] [address] [place] US Uterus and [...] Read By: Gabriela Centeno M.D. MATERNAL MEDICINE [facility] Rad[facility]narrative[facility] (OGFVWE ) SAEED SARABIA ([id number]) 1940 F Date Time Provider Department 10/24/24 1:30 PM LUCIANA GREEN OGFVWE During your visit today, we recorded the following information about you: Pulse Blood pressure Weight Height 65/minute 120/70 70.3 kg 1.651 m Cara Young MA 10/24/2024 3:36 PM Signed Svp Research And Strategic Analysis offered: Patient declines. Luciana Green, 10/24/2024 3:36 [...] OB History No obstetric history on file. [employer] History LMP: Age at Menarche: Age at First : Age at Menopause: [employer] History Comments: Sexual Activity: Not Currently; No [...] discussed with the Patient or Patient's Authorized Aircraft Ordnance Systems Mechanic. As applicable, any other physician, advance practice provider, medical student, or other health professional student that will be observing or involved in the sensitive examination for educational or training purposes was discussed with the Patient or Authorized Aircraft Ordnance Systems Mechanic. The Patient or Authorized Aircraft Ordnance Systems Mechanic has agreed to proceed with the sensitive examination. (Sensitive examination includes inspection and/or palpation of the breasts, pelvis, prostate and anorectal regions). ASSESSMENT AND PLAN: Assessment AND Plan Thickened endometrium - Likely secondary to polyp seen protruding through cervix - Recommend US/SIS to evaluate and discussed need to (more content not included)... [facility] Orders Onlyon 10-23-2024 Orders Only [id number] Saeed Sarabia 1940 F Date Provider Department Center 10/23/2024 [id number], MALISSA [facility] OR JOSEI Family History Problem Relation Age of Onset Heart attack Mother Coronary artery disease Mother Heart attack Father Coronary artery disease Father Multiple sclerosis Sister Family Status - Relation Status Age at Mother Father Sister [facility] SURGICAL PATHOLOGYon [facility] CASE REPORT [facility] Comment on above: Surgical Pathology R eport Case: [id number] Authorizing Provider: Atul Crowder MD Collected: 10/21/2024 10:59 AM Ordering Location: [facility] Received: 10/21/2024 12:39 PM Endoscopy - ENDO Pathologist: Ned Michel MD Specimens: A) - Small Bowel, Duodenum, Biopsy, Jar A, R/O Whipple's Disease B) - Stomach, Biopsy, Jar B R/O H.Pylori [facility] FINAL DIAGNOSIS [facility] Comment on above: A. Duodenum, biopsy: - Duodenal mucosa with no significant pathologic change. B. Stomach, biopsy: - Gastric antral and oxyntic-type mucosa with mild reactive epithelial changes and histologic features consistent with proton pump inhibitor use. - No intestinal metaplasia or morphologic evidence of Helicobacter pylori organisms. FINAL PERFORMING LAB [facility] Comment on above: Diagnostic interpret ation performed at: [facility], [address] [place] [address], Desk [address] [address] CLIA# [id number] Log Feeder: Liam Naik MD [facility] GROSS DESCRIPTION [facility] Comment on above: A. Small Bowel, Duod enum, Biopsy Received in formalin are multiple pieces of frank, soft tissue aggregating to 1.2 x 0.2 x 0.2 cm. Totally submitted in one cassette. B. Stomach, Biopsy Received in formalin are multiple pieces of frank, soft tissue aggregating to 0.9 x 0.3 x 0.2 cm. Totally submitted in one cassette. Gross examination performed at [facility], [address] [place] [address] October 21, 2024 5:42 PM Specimen Type: TISSU E SPECIMEN Ordering Facility: [facility] Address: [address] [place] [address] Original Ordering Provider: ATUL CROWDER [facility] ANE POSTPROC EVALon 025 ANES POSTPROC EVAL HNO ID: [id number] Author: RAMIREZ SOLIS MD Service: Critical Care Author Type: Anesthesiologist Type: Anesthesia Postprocedure Evaluation Filed: 10/21/2024 12:59 Note Text: POST ANESTHESIA EVALUATION NOTE : 1940 Procedure Summary Date: 10/21/24 Room / Location: [facility] Endoscopy - ENDO Anesthesia Start: 1052 Anesthesia Stop: 1115 Procedure: EGD DIAGNOSTIC Diagnosis: (Dyspepsia, Unspecified) Scheduled Providers: Atul Crowder MD; Ramirez Solis MD; Cayla Edward APRN.COPPER PLATER Responsible Provider: Ramirez Solis MD Anesthesia Type: [...] October 21, 2024 TIME: 12:59 PM CSN: [id number] [facility] ANES PRE-OPon 10-21-2024 ANES PRE-OP HNO ID: [id number] Author: RAMIREZ SOLIS MD Service: Critical Care Author Type: Anesthesiologist Type: Anesthesia Preprocedure Evaluation Filed: 10/21/2024 10:23 Note Text: ANESTHESIOLOGY DAY OF SURGERY NOTE : 1940 Procedure Information Date/Time: 10/21/24 1000 Scheduled providers: Atul Crowder MD; Ramirez Solis MD; Cayla Edward APRN.COPPER PLATER Procedure: EGD DIAGNOSTIC Location: [facility] Endoscopy - ENDO Estimated body mass index [...] three times d (more content not included)... [facility] 10-21-2024 [facility] HNO ID: [id number] Author: AL THOMPSON MD Service: General Internal Medicine Author Type: Nurse Practitioner Type: Discharge Summary Filed: 10/21/2024 21:53 Note Text: Attestation signed by Al Thompson MD at 10/21/2024 9:53 PM aJy DISCHARGE SUMMARY PATIENT NAME: Saeed Sarabia Code [...] MD Primary Care Provider: Galindo Miller CNP, CNP My Medical Team Members: Treatment Team: Attending [...] further evaluation. Please follow up with your bookkeeping machine mechanic on an outpatient basis 3. Cholelithiasis. 4. [...] and unintentional weight loss. Recent admission in [place] for similar symptoms with negative CTH and [...] WNL - Follow up with neurology [facility] as an outpatient - Follow up [...] Thompson MD (more content not included)... [facility] CONSULT PROGon 10-21-2024 CONSULT PROG HNO ID: [id number] Author: DAI BHATT APRN.TRIALS MANAGER Service: Psychiatry Author Type: Nurse Practitioner Type: Consult Progress Note Filed: 10/21/2024 16:03 Note Text: CL FOLLOW UP - PSYCHIATRY CONSULTATION PROGRESS NOTE SERVICE DATE: October 21, 2024 SERVICE TIME: 1424 Visit Type: In person Some elements have [...] BEDTIME Atul Crowder MD 2 mg at 10/20/240 haloperidol 0.5 mg tab(s) (HALDOL) 0.5 mg [...] (0600/1600) Atul Crowder MD 40 mg at 10/21/24 06 NaCl 0.9% iv flush bag 20 mL [...] Rigidity, Hyperreflexia, or Clonus. Moved Extremities Against [place]. Gait / Station: Unable to Examine: sitting in a chair at the bedside MENTAL STATUS EXAMINATION: Appearance: In hospital gown, well groomed, good eye contact, and sitting in chair at the bedside Beh (more content not included)... [facility] HISTORY PHYSICALon HISTORY PHYSICAL HNO ID: [id number] Author: ATUL CROWDER MD Service: Gastroenterology Author [...] MAC Additional Comments: None Atul Crowder MD [facility] NURSING PROGon 10-21-2024 NURSING PROG HNO ID: [id number] Author: JOIE FUENTES, RN Service: Nursing Author [...] (RECOMMENDATION): None Electronically Signed By: Joie Fuentes [facility] SURGICAL PATHOLOGYon 025 CASE REPORT [facility] Comment on above: Order Comment: Speci men Type: TISSUE SPECIMENOrdering Facility: [facility] Address: [address] [place] [address] Result Comment: Surg ical Pathology Report Case: [id number] Authorizing Provider: Atul Crowder MD Collected: 10/21/2024 10:59 AM Ordering Location: [facility] Received: 10/21/2024 12:39 PM Endoscopy - ENDO Pathologist: Ned Michel MD Specimens: A) - Small Bowel, Duodenum, Biopsy, Jar A, R/O Whipple's Disease B) - Stomach, Biopsy, Jar B R/O H.Pylori Performed By: #### S ####[facility] LABCLIA [id number] [address] [place] FINAL DIAGNOSIS [facility] Comment on above: Order Comment: Speci men Type: TISSUE SPECIMENOrdering Facility: [facility] Address: [address] [place] [address] Result Comment: AKen Mercado uodenum, biopsy: - Duodenal mucosa with no significant pathologic change. B. Stomach, biopsy: - Gastric antral and oxyntic-type mucosa with mild reactive epithelial changes and histologic features consistent with proton pump inhibitor use. - No intestinal metaplasia or morphologic evidence of Helicobacter pylori organisms. Performed By: #### S ####[facility] LABCLIA [id number] [address] OF [facility] FINAL PERFORMING LAB [facility] Comment on above: Order Comment: Speci men Type: TISSUE SPECIMENOrdering Facility: [facility] Address: [address] [place] [address] Result Comment: Diag nostic interpretation performed at: [facility], [address] [place] [address] CLIA# [id number] Log Feeder: Liam Naik MD Performed By: #### S ####[facility] LABCLIA [id number] [address] GROSS DESCRIPTION [facility] Comment on above: Order Comment: Speci men Type: TISSUE SPECIMENOrdering Facility: [facility] Address: [address] [place] [address] Result Comment: A. S mall Bowel, Duodenum, Biopsy Received in formalin are multiple pieces of frank, soft tissue aggregating to 1.2 x 0.2 x 0.2 cm. Totally submitted in one cassette. B. Stomach, Biopsy Received in formalin are multiple pieces of frank, soft tissue aggregating to 0.9 x 0.3 x 0.2 cm. Totally submitted in one cassette. Gross examination performed at [facility], [address] [place] [address] October 21, 2024 5:42 PM Performed By: #### S ####[facility] LABCLIA [id number] [place] [id number] [place] Upper GI endoscopyon 10-21-2 025 Upper GI endoscopy [facility] Gastrointestinal Endoscopy Patient Name: Saeed Sarabia Procedure Date: 10/21/2024 10:40 AM Date of : 1940 Admit Type: Inpatient Age: 84 Room: [place] [address] Gender: Female Note Status: Finalized Attending MD: Atul Crowder MD, [id number] Procedure: Upper GI endoscopy Indications: Dyspepsia Providers: Atul Crowder MD, Tatiana Barboza RN, Urvashi Pacheco RN (Assisting Nurse) Patient Profile: This is an [...] history and physical. Referring Physician: Ned Gonzales (procurement representative) Anthony (Referring MD) Medicines: Monitored Anesthesia Care [...] antiplatelet agents. Procedure Code(s): --- Professional --- 99669, Esophagogastroduodenos copy, flexible, transoral; with biopsy, single or multiple Diagnosis Code(s): --- Professional --- K31.89, Other diseases of stomach and duodenum R10.13, Epigastric pain CPT copyright 2020 [employer]. All rights reserved. The codes documented in this report are preliminary and upon certified professional coder review may be revised to meet current compliance requirements. Attending Participation: I personally performed the entire procedure. Scope In: 10:59:20 AM Scope Out: 11:04:58 AM MD Atul Dumas MD 10/21/2024 11:15:51 AM This report has been signed electronically by Atul Crowder MD Number of Addenda: 0 Note Initiated On: 10/21/2024 10:40 AM Estimated Blood Loss: Estimated blood loss was minimal. Normal [facility] CBC W Auto Differential pane l (Bld)on 10-20-2024 Basophils (Bld) [#/Vol] 0.03 10*3/uL Normal <0.11 [facility] Comment on above: Order Comment: Speci men Type: BLOOD SPECIMENOrdering Facility: [facility] Address: [address] [place], [place] [address] [id number] Performed By: #### 5 7021-8 ####[facility] LABORATORYCLIA [id number] [address] [place] Basophils/100 WBC (Bld) 0.4 % Normal [facility] Comment on above: Order Comment: Speci men Type: BLOOD SPECIMENOrdering Facility: [facility] Address: [address] [place] [address] Performed By: #### 5 7021-8 ####[facility] LABORATORYCLIA [id number] [address] [place] Differential cell count method Nom (Bld) Auto Normal [facility] Comment on above: Order Comment: Speci men Type: BLOOD SPECIMENOrdering Facility: [facility] Address: [address] [place] [address] Performed By: #### 5 7021-8 ####[facility] LABORATORYCLIA [id number] [place] [address] [place] Eosinophils (Bld) [#/Vol] 0.32 10*3/uL Normal <0.46 [facility] Comment on above: Order Comment: Speci men Type: BLOOD SPECIMENOrdering Facility: [facility] Address: [address] [place] [address] Performed By: #### 5 7021-8 ####[facility] LABORATORYCLIA [id number] [address] Eosinophils/100 WBC (Bld) 4.6 % Normal [facility] Comment on above: Order Comment: Speci men Type: BLOOD SPECIMENOrdering Facility: [facility] Address: [address] [place] [address] Performed By: #### 5 7021-8 ####[facility] LABORATORYCLIA [id number] [address] [place] Erythrocyte distribution width (RBC) [Ratio] 14.0 % Normal 11.5-15.0 [facility] Comment on above: Order Comment: Speci men Type: BLOOD SPECIMENOrdering Facility: [facility] Address: [address] [place] [address] Performed By: #### 5 7021-8 ####[facility] LABORATORYCLIA [id number] [place] [id number] [place] Hematocrit (Bld) [Volume fraction] 36.0 % Normal 36.0-46.0 [facility] Comment on above: Order Comment: Speci men Type: BLOOD SPECIMENOrdering Facility: [facility] Address: [address] [place] [address] Performed By: #### 5 7021-8 ####[facility] LABORATORYCLIA [id number] [place] [address] [place] Hemoglobin (Bld) [Mass/Vol] 11.9 g/dL Normal 11.5-15.5 [facility] Comment on above: Order Comment: Speci men Type: BLOOD SPECIMENOrdering Facility: [facility] Address: [address] [place] [address] Performed By: #### 5 7021-8 ####[facility] LABORATORYCLIA [id number] [place] [id number] [place] Immature granulocytes (Bld) [#/Vol] 10*3/uL Normal <0.10 [facility] Comment on above: Order Comment: Speci men Type: BLOOD SPECIMENOrdering Facility: [facility] Address: [address] [place] [address] Performed By: #### 5 7021-8 ####[facility] LABORATORYCLIA [id number] [place] [id number] [place] Immature granulocytes/100 WBC (Bld) 0.1 % Normal [facility] Comment on above: Order Comment: Speci men Type: BLOOD SPECIMENOrdering Facility: [facility] Address: [address] [place] [address] Performed By: #### 5 7021-8 ####[facility] LABORATORYCLIA [id number] [place] [id number] [place] Lymphocytes (Bld) [#/Vol] 2.02 10*3/uL Normal 1.00-4.00 [facility] Comment on above: Order Comment: Speci men Type: BLOOD SPECIMENOrdering Facility: [facility] Address: [address] [place] [address] Performed By: #### 5 7021-8 ####[facility] LABORATORYCLIA [id number] [place] [id number] [place] Lymphocytes/100 WBC (Bld) 28.9 % Normal [facility] Comment on above: Order Comment: Speci men Type: BLOOD SPECIMENOrdering Facility: [facility] Address: [address] [place] [address] Performed By: #### 5 7021-8 ####[facility] LABORATORYCLIA [id number] [address] [place] MCH (RBC) [Entitic mass] 30.4 pg Normal 26.0-34.0 [facility] Comment on above: Order Comment: Speci men Type: BLOOD SPECIMENOrdering Facility: [facility] Address: [address] [place] [address] Performed By: #### 5 7021-8 ####[facility] LABORATORYCLIA [id number] [address] STATES [facility] MCHC (RBC) [Mass/Vol] 33.1 g/dL Normal 30.5-36.0 [facility] Comment on above: Order Comment: Speci men Type: BLOOD SPECIMENOrdering Facility: [facility] Address: [address] [place] [address] Performed By: #### 5 7021-8 ####[facility] LABORATORYCLIA [id number] [place] [address] [place] MCV (RBC) [Entitic vol] 92.1 fL Normal 80.0-100.0 [facility] Comment on above: Order Comment: Speci men Type: BLOOD SPECIMENOrdering Facility: [facility] Address: [address] [place] [address] Performed By: #### 5 7021-8 ####[facility] LABORATORYCLIA [id number] [address] [place] Monocytes (Bld) [#/Vol] 0.70 10*3/uL Normal <0.87 [facility] Comment on above: Order Comment: Speci men Type: BLOOD SPECIMENOrdering Facility: [facility] Address: [address] [place] [address] Performed By: #### 5 7021-8 ####[facility] LABORATORYCLIA [id number] [place] [id number] [place] Monocytes/100 WBC (Bld) 10.0 % Normal [facility] Comment on above: Order Comment: Speci men Type: BLOOD SPECIMENOrdering Facility: [facility] Address: [address] [place] [address] Performed By: #### 5 7021-8 ####[facility] LABORATORYCLIA [id number] [place] [address] [place] Neutrophils (Bld) [#/Vol] 3.90 10*3/uL Normal 1.45-7.50 [facility] Comment on above: Order Comment: Speci men Type: BLOOD SPECIMENOrdering Facility: [facility] Address: [address] [place] [address] Performed By: #### 5 7021-8 ####[facility] LABORATORYCLIA [id number] [place] [id number] [place] Neutrophils/100 WBC (Bld) 56.0 % Normal [facility] Comment on above: Order Comment: Speci men Type: BLOOD SPECIMENOrdering Facility: [facility] Address: [address] [place] [address] Performed By: #### 5 7021-8 ####[facility] LABORATORYCLIA [id number] [place] [id number] [place] Nucleated RBC (Bld) [#/Vol] 10*3/uL Normal <0.01 [facility] Comment on above: Order Comment: Speci men Type: BLOOD SPECIMENOrdering Facility: [facility] Address: [address] [place] [address] Performed By: #### 5 7021-8 ####[facility] LABORATORYCLIA [id number] [place] [id number] [place] Nucleated RBC/100 WBC (Bld) [Ratio] 0.0 /100 WBC Normal [facility] Comment on above: Order Comment: Speci men Type: BLOOD SPECIMENOrdering Facility: [facility] Address: [address] [place] [address] Performed By: #### 5 7021-8 ####[facility] LABORATORYCLIA [id number] [place] [id number] [place] Platelet mean volume (Bld) [Entitic vol] 9.4 fL Normal 9.0-12.7 [facility] Comment on above: Order Comment: Speci men Type: BLOOD SPECIMENOrdering Facility: [facility] Address: [address] [place] [address] Performed By: #### 5 7021-8 ####[facility] LABORATORYCLIA [id number] [place] [address] [place] Platelets (Bld) [#/Vol] 278 10*3/uL Normal 150-400 [facility] Comment on above: Order Comment: Speci men Type: BLOOD SPECIMENOrdering Facility: [facility] Address: [address] [place] [address] Performed By: #### 5 7021-8 ####[facility] LABORATORYCLIA [id number] [place] [address] [place] RBC (Bld) [#/Vol] 3.91 10*6/uL Normal 3.90-5.20 [facility] Comment on above: Order Comment: Speci men Type: BLOOD SPECIMENOrdering Facility: [facility] Address: [address] [place] [address] Performed By: #### 5 7021-8 ####[facility] LABORATORYCLIA [id number] [place] [id number] [place] WBC (Bld) [#/Vol] 6.98 10*3/uL Normal 3.70-11.00 [facility] Comment on above: Order Comment: Speci men Type: BLOOD SPECIMENOrdering Facility: [facility] Address: [address] [place] [address] Performed By: #### 5 7021-8 ####[facility] LABORATORYCLIA [id number] [address] [place] CONSULTon 10-20-2024 CONSULT HNO ID: [id number] Author: PUJA PEREZ MD Service: Psychiatry Author Type: Physician Type: Consults Filed: 10/20/2024 11:47 Note Text: CL NEW - PSYCHIATRY INITIAL CONSULTATION NOTE SERVICE DATE: October 20, 2024 SERVICE TIME: 7:17 AM Visit Type: In person CONSULTING SERVICE : Psychiatry, requested by REASON FOR CONSULTATION: Delirium. Subjective IDENTIFYING INFO: Ms. Sarabia is a 84 year old female from [place], [place] HISTORY OF PRESENT ILLNESS : Patient [...] spouse/partner and adult children Legal History: Denied Judaism Affiliation(s): none Abuse History: She denied a [...] Rigidity, Hyperreflexia, or Clonus. Moved Extremities Against [place]. Gait / Station: Not assessed MENTAL STATUS [...] of illnes (more content not included)... Normal [facility] Comprehensive metabolic 2000 panelon 10-20-2024 Albumin [Mass/Vol] 3.5 g/dL Low 3.9-4.9 [facility] Comment on above: Order Comment: Speci men Type: BLOOD SPECIMENOrdering Facility: [facility] Address: [address] [place] [address] Performed By: #### 2 4323-8 ####[facility] LABORATORYCLIA [id number] [place] [address] [place] ALP [Catalytic activity/Vol] 58 U/L Normal 34-123 [facility] Comment on above: Order Comment: Speci men Type: BLOOD SPECIMENOrdering Facility: [facility] Address: [address] [place] [address] Performed By: #### 2 4323-8 ####[facility] LABORATORYCLIA [id number] [place] [address] [place] ALT [Catalytic activity/Vol] 16 U/L Normal 7-38 [facility] Comment on above: Order Comment: Speci men Type: BLOOD SPECIMENOrdering Facility: [facility] Address: [address] [place] [address] Performed By: #### 2 4323-8 ####[facility] LABORATORYCLIA [id number] [place] [address] [place] Anion gap [Moles/Vol] 10 mmol/L Normal 8-15 [facility] Comment on above: Order Comment: Speci men Type: BLOOD SPECIMENOrdering Facility: [facility] Address: [address] [place] [address] Performed By: #### 2 4323-8 ####[facility] LABORATORYCLIA [id number] [place] [id number] [place] AST [Catalytic activity/Vol] 20 U/L Normal 13-35 [facility] Comment on above: Order Comment: Speci men Type: BLOOD SPECIMENOrdering Facility: [facility] Address: [address] [place] [address] Performed By: #### 2 4323-8 ####[facility] LABORATORYCLIA [id number] [place] [id number] [place] Bilirubin [Mass/Vol] 0.3 mg/dL Normal 0.2-1.3 [facility] Comment on above: Order Comment: Speci men Type: BLOOD SPECIMENOrdering Facility: [facility] Address: [address] [place] [address] Performed By: #### 2 4323-8 ####[facility] LABORATORYCLIA [id number] [place] [address] [place] Calcium [Mass/Vol] 9.0 mg/dL Normal 8.5-10.2 [facility] Comment on above: Order Comment: Speci men Type: BLOOD SPECIMENOrdering Facility: [facility] Address: [address] [place] [address] Performed By: #### 2 4323-8 ####[facility] LABORATORYCLIA [id number] [place] [id number] [place] Chloride [Moles/Vol] 99 mmol/L Normal 98-107 [facility] Comment on above: Order Comment: Speci men Type: BLOOD SPECIMENOrdering Facility: [facility] Address: [address] [place] [address] Performed By: #### 2 4323-8 ####[facility] LABORATORYCLIA [id number] [place] [id number] [place] CO2 [Moles/Vol] 28 mmol/L Normal 22-30 [facility] Comment on above: Order Comment: Speci men Type: BLOOD SPECIMENOrdering Facility: [facility] Address: [address] [place] [address] Performed By: #### 2 4323-8 ####[facility] LABORATORYCLIA [id number] [place] [id number] [place] [facility] Creatinine [Mass/Vol] 0.74 mg/dL Normal 0.58-0.96 [facility] Comment on above: Order Comment: Speci men Type: BLOOD SPECIMENOrdering Facility: [facility] Address: [address] [place] [address] Performed By: #### 2 4323-8 ####[facility] LABORATORYCLIA [id number] [address] Creatinine and Glomerular filtration rate.predicted panel (S/P/Bld) 80 mL/min/1.73m??? Normal >=60 [facility] Comment on above: Order Comment: Speci men Type: BLOOD SPECIMENOrdering Facility: [facility] Address: [address] [place] [address] Result Comment: Roz mated Glomerular Filtration Rate [...] actual GFR. Performed By: #### 2 4323-8 ####[facility] LABORATORYCLIA [id number] [place] [id number] [place] Glucose [Mass/Vol] 135 mg/dL High 74-99 [facility] Comment on above: Order Comment: Speci men Type: BLOOD SPECIMENOrdering Facility: [facility] Address: [address] [place] [address] Result Comment: The [employer] (ADA) provides guidance for cutoff [...] Standards of Medical Care in Diabetes 2016, [employer] [employer]. Diabetes Care. 2016.39(Suppl 1). Performed By: #### 2 4323-8 ####[facility] LABORATORYCLIA [id number] [place] [address] [place] Potassium [Moles/Vol] 3.7 mmol/L Normal 3.7-5.1 [facility] Comment on above: Order Comment: Speci men Type: BLOOD SPECIMENOrdering Facility: [facility] Address: [address] [place] [address] Performed By: #### 2 4323-8 ####[facility] LABORATORYCLIA [id number] [place] [id number] [place] Protein [Mass/Vol] 6.2 g/dL Low 6.3-8.0 [facility] Comment on above: Order Comment: Speci men Type: BLOOD SPECIMENOrdering Facility: [facility] Address: [address] [place] [address] Performed By: #### 2 4323-8 ####[facility] LABORATORYCLIA [id number] [place] [id number] [place] Sodium [Moles/Vol] 137 mmol/L Normal 136-144 [facility] Comment on above: Order Comment: Speci men Type: BLOOD SPECIMENOrdering Facility: [facility] Address: [address] [place] [address] Performed By: #### 2 4323-8 ####[facility] LABORATORYCLIA [id number] [place] [id number] [place] Urea nitrogen [Mass/Vol] 11 mg/dL Normal 7-21 [facility] Comment on above: Order Comment: Speci men Type: BLOOD SPECIMENOrdering Facility: [facility] Address: [address] [place] [address] Performed By: #### 2 4323-8 ####BUTTE LABORATORYIA [id number] [place] [address] [place] HISTORY PHYSICALon HISTORY PHYSICAL HNO ID: [id number] Author: AL THOMPSON MD Service: ? Author Type: Physician Type: H&P Filed: 10/20/2024 19:06 Note Text: INTERNAL MEDICINE HANDP EXAMINATION SERVICE DATE: 10/20/2024 SERVICE TIME: 6:22 PM PRIMARY CARE PHYSICIAN: Galindo Miller, TRIALS MANAGER, TRIALS MANAGER CHIEF COMPLAINT Recurrent encephalopathy HISTORY OF PRESENT ILLNESS HPI: Ms. Sarabia is a 84 year old female who presents with recurrent encephalopathy. Patient has PMHx of HTN, HLD, DM-2, GERD, HFpEF (LVEF 64%), and Atrial fibrillation (Eliquis). Patient came in from [place] on 10/16/2024 for recurrent mental status change, with hallucinations. History was taken from her at bedside. On 09/17/2024 patient was evaluated for similar complaint at [facility] (acute mental status change with hallucinations). She [...] hallucination. According to her , prior to [facility] admission patient was totally functional able to [...] paralysis, seizu (more content not included)... Normal [facility] NURSING PROGon 10-20-2024 NURSING PROG HNO ID: [id number] Author: RED COVINGTON RN Service: Nursing Author [...] no other needs at this time. Normal [facility] CREATININE BLDon 10-19-2024 Creatinine [Mass/Vol] 0.70 mg/dL Normal 0.58-0.96 [facility] Comment on above: Order Comment: Speci men Type: BLOOD SPECIMENOrdering Facility: [facility] Address: [address] [place] [address] Performed By: #### 3 024-7, CRET1, 305-0 ####[facility] LABCLIA [id number] [place] [address] [place] Creatinine and Glomerular filtration rate.predicted panel (S/P/Bld) 85 mL/min/1.73m??? Normal >=60 [facility] Comment on above: Order Comment: Speci men Type: BLOOD SPECIMENOrdering Facility: [facility] Address: [address] [place] [address] Result Comment: Roz mated Glomerular Filtration Rate [...] GFR. Performed By: #### 3 024-7, CRET1, 3050-0 ####[facility] LABIA [id number] [place] [address] [place] Folate [facility]19 [facility] Folate [Mass/Vol] 14.7 ng/mL Normal >4.7 [facility] Comment on above: Order Comment: Speci men Type: BLOOD SPECIMENOrdering Facility: [facility] Address: [address] [place] [address] Performed By: #### 2 284-8, 2132-9 ####[facility] LABORATORYCLIA [id number] [place] [address] [place] NURSING PROGon 10-19-2024 NURSING PROG HNO ID: [id number] Author: RED COVINGTON RN Service: Nursing Author [...] no other needs at this time. Normal [facility] T3Free SerPl-mCncon 10-19-19 25 Free T3 [Mass/Vol] 2.6 pg/mL Normal 2.3-4.1 [facility] Comment on above: Order Comment: Speci men Type: BLOOD SPECIMENOrdering Facility: [facility] Address: [address] [place] [address] Performed By: #### 3 024-7, CRET1, 0 ####[facility] [id number] [place] [address] [place] T4 Free SerPl-mCncon 025 Free T4 [Mass/Vol] 1.5 ng/dL Normal 0.9-1.7 [facility] Comment on above: Order Comment: Akilah nieto Type: BLOOD SPECIMENOrdering Facility: [facility] Address: [address] [place] [address] Performed By: #### 3 024-7, CRET1, 0 ####[facility] [id number] [place] [address] [place] VITAMIN B1 (THIAMINE), WHOLE BLOODon 10-19-2024 Thiamine (Bld) [Moles/Vol] 179.7 nmol/L Normal 84.3-213.3 [facility] Comment on above: Order Comment: Akilah nieto Type: BLOOD SPECIMENOrdering Facility: [facility] Address: [address] [place] [address] Result Comment: This assay measures the concentration of thiamine diphosphate (TDP), the primary active form of vitamin B1. Approximately 90 percent of vitamin B1 present in whole blood is TDP. Thiamine and thiamine monophosphate, which comprise the remaining 10 percent, are not measured. This test was developed, and its performance characteristics determined by the [facility] Department of Pathology and Laboratory Medicine. It has not been cleared or approved by the FDA. The [facility] Department of Pathology and Laboratory Medicine is regulated under CLIA as qualified to perform high-complexity testing. This test is used for clinical purposes. It should not be regarded as investigational or for research. Performed By: #### B 1WB ####[facility] LABCLIA [id number] [place] [address] [place] VITAMIN B6/PYRIDOXINon 10-19 VITAMIN B6 20.3 nmol/L Normal 20.0-125.0 [facility] Comment on above: Order Comment: Speci men Type: BLOOD SPECIMENOrdering Facility: [facility] Address: [address] [place] [address] Result Comment: INTE RPRETIVE INFORMATION: Vitamin B6 (Pyridoxal 5-Phosphate) Pyridoxal 5'-phosphate measured in a specimen collected following an 8-hour or overnight fast accurately indicates vitamin B6 nutritional status. Non-fasting specimen concentration reflects recent vitamin intake. This test was developed and its performance characteristics determined by [facility]. It has not been cleared or approved by the US Food and Drug Administration. This test was performed in a CLIA certified laboratory and is intended for clinical purposes. Performed By: [facility] [address] [place] [address] Log Feeder: Ash Worley MD, PhD CLIA Number: [id number] Performed By: #### V ITB6 ####[facility] HOSPITALIA [id number] [place] [address] Vit B12 SerPl-mCncon 025 Cobalamin (Vitamin B12) [Mass/Vol] 229 pg/mL Low 232-1245 [facility] Comment on above: Order Comment: Speci men Type: BLOOD SPECIMENOrdering Facility: [facility] Address: [address] [place] [address] Performed By: #### 2 284-8, 2132-9 ####[facility] LABORATORYIA [id number] [place] [address] [place] Ammonia Plas-sCncon 10-18-19 25 Ammonia (P) [Moles/Vol] 27 umol/L Normal 11-51 [facility] Comment on above: Order Comment: Speci men Type: BLOOD SPECIMENOrdering Facility: [facility] Address: [address] [place] [address] Performed By: #### 1 6362-6 ####GRANT LABORATORYIA [id number] [address] [place] CONSULTon 10-18-2024 CONSULT HNO ID: [id number] Author: NED TERAN APRN.CNP Service: Gastroenterology Author Type: Nurse Practitioner Type: Consults Filed: 10/18/2024 14:07 Note Text: CONSULT: GASTROENTEROLOGY SERVICE SERVICE DATE: 10/18/2024 SERVICE TIME: 10:00 AM REASON FOR CONSULT: intermittent confusion, abdominal pain REQUESTING PHYSICIAN: Dr. Dorman PRIMARY CARE PHYSICIAN: Galindo Miller, TRIALS MANAGER, TRIALS MANAGER Subjective Ms. Sarabia is a 84 year old female with PMH afib(eliquis), HTN, DM-type II, and gastric/duodenal ulcers (09/2024) who presented to ED 10/16 for mental status change x 3 days, abdominal pain/distention. GI consulted for evaluation of intermittent confusion, abdominal pain. Patient initially presented to [facility] mid September 19 for altered mental status [...] EGD done for abd pain done at [facility] Mild LA grade A esophagitis Two small [...] needed -Case to be d/w staff: Dr. Crowder for any other additional recs Addendum: 1400 [...] Rfl: lidoc (more content not included)... Normal [facility] NURSING PROGon 10-18-2024 NURSING PROG HNO ID: [id number] Author: CHER CALDERON, ELFEGO Service: Nursing Author Type: Registered Nurse Type: Nursing Progress Note Filed: 10/18/2024 01:10 Note Text: Event(s) / Intervention Note: PATIENT NAME: Saeed Sarabia Patient Location: [id number] Room: [id number] The patient was observed having the following problems: Patient restless and confused attempting to pull off EEG leads and trying to get out of bed stating I'm getting out of here , patent offered toileting and accepted, patient assisted to the restroom then assisted back to bed. Continued to try to get up and pulled at lines and was unable to redirect, CURING PICKLING PACKER notified and came to the bedside. The time of the event occurred at: 0020 The following intervention(s) were initiated: Placed new order for one time dose of IV haldol, patient compliant with administration. After the initiated interventions, the following observation(s) were made: nothing further noted. Will continue to observe and check with patient.. [facility] US ABD RIGHT UPPER QUADRANTo n [...] Kidney: No hydronephrosis. Ascites: None. IMPRESSION: CHOLELITHIASIS. Spout Positioner: ROSS Transcribe Date/Time: Oct 18 2024 5:04P Dictated by : YAKELIN NICOLE MD This examination was interpreted and the report reviewed and electronically signed by: YAKELIN NICOLE MD on Oct 18 2024 5:06PM EST [id number] [facility] ALLIED HEALTHon 10-17-2024 ALLIED HEALTH HNO ID: [id number] Author: GALINDO FROST, senior gl accountant Service: Radiology Author Type: Vocational Teacher Type: Allied Health Filed: 10/17/2024 17:47 Note [...] PATIENT PRESENTS WITH AN IMPLANTABLE OR ATTACHED HISTOPATHOLOGIST: No RADIOLOGY DEPARTMENT: MR; Exam(s) Completed: Head: Routine Brain PERIPHERAL IV DATA: Not applicable SIGNED BY: Galindo Frost, senior gl accountant October 17, 2024 5:47 PM Normal [facility] CBC panel Auto (Bld)on 10-17 Erythrocyte distribution width (RBC) [Ratio] 13.6 % Normal 11.5-15.0 [facility] Comment on above: Order Comment: Akilah nieto Type: BLOOD SPECIMENOrdering Facility: [facility] Address: [address] [place] [address] Performed By: #### 5 8410-2 ####[facility] LABORATORYCLIA [id number] [address] [place] Hematocrit (Bld) [Volume fraction] 35.9 % Low 36.0-46.0 [facility] Comment on above: Order Comment: Akilah nieto Type: BLOOD SPECIMENOrdering Facility: [facility] Address: [address] [place] [address] Performed By: #### 5 8410-2 ####BUTTE LABORATORYCLIA [id number] [place] [address] [place] Hemoglobin (Bld) [Mass/Vol] 11.8 g/dL Normal 11.5-15.5 [facility] Comment on above: Order Comment: Akilah nieto Type: BLOOD SPECIMENOrdering Facility: [facility] Address: [address] [place] [address] Performed By: #### 5 8410-2 ####BUTTE LABORATORYCLIA [id number] [place] [address] [place] MCH (RBC) [Entitic mass] 30.9 pg Normal 26.0-34.0 [facility] Comment on above: Order Comment: Speci men Type: BLOOD SPECIMENOrdering Facility: [facility] Address: [address] [place] [address] Performed By: #### 5 8410-2 ####[facility] LABORATORYCLIA [id number] [place] [address] [place] MCHC (RBC) [Mass/Vol] 32.9 g/dL Normal 30.5-36.0 [facility] Comment on above: Order Comment: Speci men Type: BLOOD SPECIMENOrdering Facility: [facility] Address: [address] [place] [address] Performed By: #### 5 8410-2 ####[facility] LABORATORYCLIA [id number] [address] [place] MCV (RBC) [Entitic vol] 94.0 fL Normal 80.0-100.0 [facility] Comment on above: Order Comment: Speci men Type: BLOOD SPECIMENOrdering Facility: [facility] Address: [address] [place] [address] Performed By: #### 5 8410-2 ####[facility] LABORATORYCLIA [id number] [place] [address] [place] Nucleated RBC (Bld) [#/Vol] 10*3/uL Normal <0.01 [facility] Comment on above: Order Comment: Speci men Type: BLOOD SPECIMENOrdering Facility: [facility] Address: [address] [place] [address] Performed By: #### 5 8410-2 ####[facility] LABORATORYCLIA [id number] [address] [place] Platelet mean volume (Bld) [Entitic vol] 9.6 fL Normal 9.0-12.7 [facility] Comment on above: Order Comment: Speci men Type: BLOOD SPECIMENOrdering Facility: [facility] Address: [address] [place] [address] Performed By: #### 5 8410-2 ####[facility] LABORATORYCLIA [id number] [place] [id number] [place] Platelets (Bld) [#/Vol] 246 10*3/uL Normal 150-400 [facility] Comment on above: Order Comment: Speci men Type: BLOOD SPECIMENOrdering Facility: [facility] Address: [address] [place] [address] Performed By: #### 5 8410-2 ####BUTTE LABORATORYCLIA [id number] [place] [id number] [place] RBC (Bld) [#/Vol] 3.82 10*6/uL Low 3.90-5.20 [facility] Comment on above: Order Comment: Speci men Type: BLOOD SPECIMENOrdering Facility: [facility] Address: [address] [place] [address] Performed By: #### 5 8410-2 ####BUTTE LABORATORYCLIA [id number] [place] [id number] [place] WBC (Bld) [#/Vol] 5.44 10*3/uL Normal 3.70-11.00 [facility] Comment on above: Order Comment: Speci men Type: BLOOD SPECIMENOrdering Facility: [facility] Address: [address] [place] [address] Performed By: #### 5 8410-2 ####BUTTE LABORATORYCLIA [id number] [place] [id number] [place] CNCOon 10-17-2024 CNCO Letter Text Normal [facility] CONSULTon 10-17-2024 CONSULT HNO ID: [id number] Author: TYLER MATA MD Service: Neurology General [...] Reflexes: Upper (more content not included)... Normal [facility] Comprehensive metabolic 2000 panelon 10-17-2024 Albumin [Mass/Vol] 3.4 g/dL Low 3.9-4.9 [facility] Comment on above: Order Comment: Speci men Type: BLOOD SPECIMENOrdering Facility: [facility] Address: [address] [place] [address] Performed By: #### 2 4323-8, 6-3, 99803-8, 75686-3 ####BUTTE LABORATORYCLIA [id number] [place] [id number] [place] ALP [Catalytic activity/Vol] 46 U/L Normal 34-123 [facility] Comment on above: Order Comment: Speci men Type: BLOOD SPECIMENOrdering Facility: [facility] Address: [address] [place] [address] Performed By: #### 2 4323-8, 6-3, , 19450-5 ####BUTTE LABORATORYCLIA [id number] [place] [id number] [place] ALT [Catalytic activity/Vol] 17 U/L Normal 7-38 [facility] Comment on above: Order Comment: Speci men Type: BLOOD SPECIMENOrdering Facility: [facility] Address: [address] [place] [address] Performed By: #### 2 4323-8, 6-3, 02743-4, 28559-6 ####BUTTE LABORATORYCLIA [id number] [place] [id number] [place] Anion gap [Moles/Vol] 10 mmol/L Normal 8-15 [facility] Comment on above: Order Comment: Speci men Type: BLOOD SPECIMENOrdering Facility: [facility] Address: [address] [place] [address] Performed By: #### 2 4323-8, 3016-3, 70041-3, 27317-6 ####[facility] LABORATORYCLIA [id number] [place] [address] [place] AST [Catalytic activity/Vol] 22 U/L Normal 13-35 [facility] Comment on above: Order Comment: Speci men Type: BLOOD SPECIMENOrdering Facility: [facility] Address: [address] [place] [address] Performed By: #### 2 4323-8, 6-3, 90506-9, 75948-5 ####BUTTE LABORATORYCLIA [id number] [place] [id number] [place] Bilirubin [Mass/Vol] 0.3 mg/dL Normal 0.2-1.3 [facility] Comment on above: Order Comment: Speci men Type: BLOOD SPECIMENOrdering Facility: [facility] Address: [address] [place] [address] Performed By: #### 2 4323-8, 6-3, , 89996-2 ####BUTTE LABORATORYCLIA [id number] [place] [id number] [place] Calcium [Mass/Vol] 9.2 mg/dL Normal 8.5-10.2 [facility] Comment on above: Order Comment: Speci men Type: BLOOD SPECIMENOrdering Facility: [facility] Address: [address] [place], [place] [address] Performed By: #### 2 4323-8, 6-3, , 04678-6 ####[facility] LABORATORYCLIA [id number] [place] [address] [place] Chloride [Moles/Vol] 102 mmol/L Normal 98-107 [facility] Comment on above: Order Comment: Speci men Type: BLOOD SPECIMENOrdering Facility: [facility] Address: [address] [place] [address] Performed By: #### 2 4323-8, 6-3, 43403-6, 11618-0 ####[facility] LABORATORYCLIA [id number] [place] [address] [place] CO2 [Moles/Vol] 28 mmol/L Normal 22-30 [facility] Comment on above: Order Comment: Akilah nieto Type: BLOOD SPECIMENOrdering Facility: [facility] Address: [address] [place] [address] Performed By: #### 2 4323-8, 3016-3, 53469-7, 34850-8 ####[facility] LABORATORYCLIA [id number] [place] [id number] [place] Creatinine [Mass/Vol] 0.80 mg/dL Normal 0.58-0.96 [facility] Comment on above: Order Comment: Akilah nieto Type: BLOOD SPECIMENOrdering Facility: [facility] Address: [address] [place] [address] Performed By: #### 2 4323-8, 6-3, , 61945-3 ####BUTTE LABORATORYCLIA [id number] [place] [address] [place] Creatinine and Glomerular filtration rate.predicted panel (S/P/Bld) 73 mL/min/1.73m??? Normal >=60 [facility] Comment on above: Order Comment: Akilah nieto Type: BLOOD SPECIMENOrdering Facility: [facility] Address: [address] [place] [address] Result Comment: Roz mated Glomerular Filtration Rate [...] GFR. Performed By: #### 2 4323-8, 6-3, 53332-4, 22669-1 ####BUTTE LABORATORYCLIA [id number] [place] [id number] [place] Glucose [Mass/Vol] 103 mg/dL High 74-99 [facility] Comment on above: Order Comment: Musanae nieto Type: BLOOD SPECIMENOrdering Facility: [facility] Address: [address] [facility] [facility]Jess [place] [id number] Result Comment: The [place] Diabetes Association (ADA) provides guidance for cutoff [...] Standards of Medical Care in Diabetes 2016, [place] [employer] Association. Diabetes Care. 2016.39(Suppl 1). Performed By: #### 2 4323-8, 6-3, , 54538-7 ####[facility] LABORATORYCLIA [id number] [place] [id number] [place] Potassium [Moles/Vol] 4.4 mmol/L Normal 3.7-5.1 [facility] Comment on above: Order Comment: Akilah gerson Type: BLOOD SPECIMENOrdering Facility: [facility] Address: [address] [place], [place] [address] Performed By: #### 2 4323-8, 6-3, , ####GR[facility] LABORATORYCLIA [id number] [place] [id number] [place] Protein [Mass/Vol] 5.8 g/dL Low 6.3-8.0 [facility] Comment on above: Order Comment: Akilah gerson Type: BLOOD SPECIMENOrdering Facility: [facility] Address: [address] [place] [address] Performed By: #### 2 4323-8, 6-3, , ####GRANT LABORATORYCLIA [id number] [place] [id number] [place] Sodium [Moles/Vol] 140 mmol/L Normal 136-144 [facility] Comment on above: Order Comment: Speci men Type: BLOOD SPECIMENOrdering Facility: [facility] Address: [address] [place] [address] Performed By: #### 2 4323-8, 6-3, 02782-4, 97933-1 ####GRANT LABORATORYCLIA [id number] [place] [address] [place] Urea nitrogen [Mass/Vol] 10 mg/dL Normal 7-21 [facility] Comment on above: Order Comment: Speci men Type: BLOOD SPECIMENOrdering Facility: [facility] Address: [address] [place] [address] Performed By: #### 2 4323-8, 6-3, , 44353-4 ####GRANT LABORATORYCLIA [id number] [place] [id number] [place] Iron and Iron binding capaci ty panelon 10-17-2024 Iron [Mass/Vol] 74 ug/dL Normal 41-186 [facility] Comment on above: Order Comment: Speci men Type: BLOOD SPECIMENOrdering Facility: [facility] Address: [address] [place] [address] Performed By: #### 2 4323-8, 3015-3, , 06772-4 ####GRANT LABORATORYCLIA [id number] [place] [id number] [place] Iron binding capacity [Mass/Vol] 235 ug/dL Normal 232-386 [facility] Comment on above: Order Comment: Speci men Type: BLOOD SPECIMENOrdering Facility: [facility] Address: [address] [place] [address] Performed By: #### 2 4323-8, 6-3, 61655-5, 22976-9 ####GRANT LABORATORYCLIA [id number] [place] [id number] [place] Iron/TIBC [Molar ratio] 31.5 % Normal 20.0-55.0 [facility] Comment on above: Order Comment: Speci men Type: BLOOD SPECIMENOrdering Facility: [facility] Address: [address] [place], [place] [address] Performed By: #### 2 4323-8, 3016-3, 82467-0, 98169-5 ####[facility]TE LABORATORYCLIA [id number] [place] [id number] [place] MRI BRAIN WO IVCONon 025 MRI BRAIN WO IVCON * * *Final Report* * * DATE OF EXAM: Oct 17 2024 5:58PM F[facility] 0294 - MRI BRAIN WO IVCON / [...] process or mass. Chronic changes as described. Spout Positioner: PSCB Transcribe Date/Time: Oct 17 2024 6:11P Dictated by : ADINA AGEE MD This examination was interpreted and the report reviewed and electronically signed by: GEOFFREY ZAYAS MD on Oct 17 2024 6:44PM EST [id number] Normal [facility]17 Magnesium [Mass/Vol] 2.0 mg/dL Normal 1.7-2.3 [facility] Comment on above: Order Comment: Speci men Type: BLOOD SPECIMENOrdering Facility: [facility] Address: [place] [address] Performed By: #### 2 4323-8, 3016-3, 80650-7, 61282-5 ####BUTTE LABORATORYCLIA [id number] [address] [facility] NURSING PROGon 10-17-2024 NURSING PROG HNO ID: [id number] Author: RED COVINGTON, ELFEGO Service: Nursing Author [...] no other needs at this time. Normal [facility] NUTRITIONon 10-17-2024 NUTRITION HNO ID: [id number] Author: PATIENCE COVINGTON RD Service: NST-Nutrition Support [...] Diet Orders (From admission, onward) Start Ordered 10/17/24 0915 DIET REGULAR START NOW 10/17/24 0907 Anthropometrics: Height: 165.1 cm (5' 5 ) [...] DATE: October 17, 2024 TIME: 12:34 PM Normal [facility] PORPHOBILINOGEN (PBG), URINE , SCREENon 10-17-2024 PORPHOBILINOGEN (PBG), URINE, SCREEN Negative Normal Negative [facility] Comment on above: Order Comment: Speci men Type: URINE SPECIMENOrdering Facility: [facility] Address: [address] [place] [address] Result Comment: This test was developed, and its performance characteristics determined by the [facility] Department of Pathology and Laboratory Medicine. It has not been cleared or approved by the FDA. The [facility] Department of Pathology and Laboratory Medicine is regulated under CLIA as qualified to perform high-complexity testing. This test is used for clinical purposes. It should not be regarded as investigational or for research. Performed By: #### U PBG ####[facility] LABCLIA [id number] [place] [address] [place] TOXICOLOGY SCREEN, ROUTINE U RINEon 10-17-2024 Amphetamines Confirm (U) [Mass/Vol] Negative Normal Negative [facility] Comment on above: Order Comment: Speci men Type: URINE SPECIMENOrdering Facility: [facility] Address: [address] [place] [address] Result Comment: Cuto ff threshold at 1000 ng/mL. Performed By: #### U TOX2 ####[facility] LABORATORYCLIA [id number] [place] [address] [place] BARBITURATES, URINE Negative Normal Negative [facility] Comment on above: Order Comment: Speci men Type: URINE SPECIMENOrdering Facility: [facility] Address: [address] [place] [address] Result Comment: Cuto ff threshold at 200 ng/mL. Performed By: #### U TOX2 ####[facility] LABORATORYCLIA [id number] [place] [address] [place] BENZODIAZEPINES, UR Negative Normal Negative [facility] Comment on above: Order Comment: Speci men Type: URINE SPECIMENOrdering Facility: [facility] Address: [address] [place] [address] Result Comment: Cuto ff threshold at 200 ng/mL. Performed By: #### U TOX2 ####[facility] LABORATORYCLIA [id number] [place] [address] [place] Cannabinoids Screen Ql (U) Negative Normal Negative [facility] Comment on above: Order Comment: Speci men Type: URINE SPECIMENOrdering Facility: [facility] Address: [address] [place] [address] Result Comment: Cuto ff threshold at 50 ng/mL. Performed By: #### U TOX2 ####[facility] LABORATORYCLIA [id number] [place] [address] [place] Cocaine Ql (U) Negative Normal Negative [facility] Comment on above: Order Comment: Speci men Type: URINE SPECIMENOrdering Facility: [facility] Address: [address] [place] [address] Result Comment: Cuto ff threshold at 300 ng/mL. Performed By: #### U TOX2 ####[facility] LABORATORYCLIA [id number] [address] [place] Ethanol (U) [Mass/Vol] <11 Normal <11 [facility] Comment on above: Order Comment: Speci men Type: URINE SPECIMENOrdering Facility: [facility] Address: [address] [place] [address] Performed By: #### U TOX2 ####[facility] LABORATORYCLIA [id number] [address] [place] Opiates Screen Ql (U) Negative Normal Negative [facility] Comment on above: Order Comment: Speci men Type: URINE SPECIMENOrdering Facility: [facility] Address: [address] [place] [address] Result Comment: Cuto ff threshold at 300 ng/mL. Performed By: #### U TOX2 ####[facility] LABORATORYCLIA [id number] [address] [place] oxyCODONE cutoff Screen (U) [Mass/Vol] Negative Normal Negative [facility] Comment on above: Order Comment: Speci men Type: URINE SPECIMENOrdering Facility: [facility] Address: [address] [place] [address] Result Comment: Cuto ff threshold at 100 ng/mL. Performed By: #### U TOX2 ####[facility] LABORATORYCLIA [id number] [place] [id number] [facility] Phencyclidine Ql (U) Negative Normal Negative [facility] Comment on above: Order Comment: Speci men Type: URINE SPECIMENOrdering Facility: [facility] Address: [address] [place] [address] Result Comment: Cuto ff threshold at 25 ng/mL. Performed By: #### U TOX2 ####[facility] LABORATORYCLIA [id number] [address] [place] TSH SerPl-aCncon 10-17-2024 TSH Qn 0.103 m[IU]/L Low 0.270-4.200 [facility] Comment on above: Order Comment: Speci men Type: BLOOD SPECIMENOrdering Facility: [facility] Address: [address] [place] [address] Performed By: #### 2 4323-8, 3016-3, 84478-3, 07012-6 ####[facility] LABORATORYCLIA [id number] [place] [id number] [facility] [place] ALLIED HEALTHon 10-16-2024 ALLIED HEALTH HNO ID: [id number] Author: WAYNE BRANHAM RDMS Service: Radiology Author Type: Roustabout Crew Type: Allied Health Filed: 10/16/2024 16:40 Note [...] PATIENT PRESENTS WITH AN IMPLANTABLE OR ATTACHED HISTOPATHOLOGIST: No RADIOLOGY DEPARTMENT: Ultrasound PERIPHERAL IV DATA: Not applicable SIGNED BY: Wayne Branham RDMS October 16, 2024 4:39 PM [facility] HNO ID: [id number] Author: DULCE BURTON CT Service: Radiology Author Type: Vocational Teacher Type: Allied Health Filed: 10/16/2024 15:37 Note [...] PATIENT PRESENTS WITH AN IMPLANTABLE OR ATTACHED HISTOPATHOLOGIST: No ALLERGIES: Reviewed and unchanged CONTRAST ALLERGY: [...] DATE: October 16, 2024 TIME: 3:36 PM [facility] ALLIED HEALTH HNO ID: [id number] Author: COLBY DE JESUS RT(R) Service: Radiology [...] PATIENT PRESENTS WITH AN IMPLANTABLE OR ATTACHED HISTOPATHOLOGIST: No RADIOLOGY DEPARTMENT: General X-ray: Exam(s) Completed: Chest X-Ray PERIPHERAL IV DATA: Not applicable SIGNED BY: RT Mariana(R) October 16, 2024 2:19 PM [facility] CBC W Auto Differential pane l (Bld)on 10-16-2024 Basophils (Bld) [#/Vol] 10*3/uL Normal <0.11 [facility] Comment on above: Order Comment: Speci men Type: BLOOD SPECIMENOrdering Facility: [facility] Address: [address] [place] [address] Performed By: #### 5 7021-8 ####[facility] LABORATORYCLIA [id number] [place] [address] [place] Basophils/100 WBC (Bld) 0.1 % Normal [facility] Comment on above: Order Comment: Speci men Type: BLOOD SPECIMENOrdering Facility: [facility] Address: [address] [place] [address] Performed By: #### 5 7021-8 ####[facility] LABORATORYCLIA [id number] [place] [address] [place] Differential cell count method Nom (Bld) Auto Normal [facility] Comment on above: Order Comment: Speci men Type: BLOOD SPECIMENOrdering Facility: [facility] Address: [address] [place] [address] Performed By: #### 5 7021-8 ####[facility] LABORATORYCLIA [id number] [address] [place] Eosinophils (Bld) [#/Vol] 0.45 10*3/uL Normal <0.46 [facility] Comment on above: Order Comment: Speci men Type: BLOOD SPECIMENOrdering Facility: [facility] Address: [address] [place] [address] Performed By: #### 5 7021-8 ####[facility] LABORATORYCLIA [id number] [address] Eosinophils/100 WBC (Bld) 5.5 % Normal [facility] Comment on above: Order Comment: Speci men Type: BLOOD SPECIMENOrdering Facility: [facility] Address: [address] [place] [address] Performed By: #### 5 7021-8 ####[facility] LABORATORYCLIA [id number] [address] [place] Erythrocyte distribution width (RBC) [Ratio] 13.6 % Normal 11.5-15.0 [facility] Comment on above: Order Comment: Speci men Type: BLOOD SPECIMENOrdering Facility: [facility] Address: [address] [place] [address] Performed By: #### 5 7021-8 ####[facility] LABORATORYCLIA [id number] [place] [id number] [facility] Hematocrit (Bld) [Volume fraction] 41.4 % Normal 36.0-46.0 [facility] Comment on above: Order Comment: Speci men Type: BLOOD SPECIMENOrdering Facility: [facility] Address: [address] [place] [address] Performed By: #### 5 7021-8 ####GRANT LABORATORYCLIA [id number] [place] [address] [place] Hemoglobin (Bld) [Mass/Vol] 13.4 g/dL Normal 11.5-15.5 [facility] Comment on above: Order Comment: Speci men Type: BLOOD SPECIMENOrdering Facility: [facility] Address: [address] [place] [address] Performed By: #### 5 7021-8 ####GRANT LABORATORYCLIA [id number] [place] [address] [place] Immature granulocytes (Bld) [#/Vol] 0.03 10*3/uL Normal <0.10 [facility] Comment on above: Order Comment: Speci men Type: BLOOD SPECIMENOrdering Facility: [facility] Address: [address] [place] [address] Performed By: #### 5 7021-8 ####GRANT LABORATORYCLIA [id number] [address] [place] Immature granulocytes/100 WBC (Bld) 0.4 % Normal [facility] Comment on above: Order Comment: Speci men Type: BLOOD SPECIMENOrdering Facility: [facility] Address: [address] [place] [address] Performed By: #### 5 7021-8 ####GRANT LABORATORYCLIA [id number] [place] [address] [place] Lymphocytes (Bld) [#/Vol] 3.33 10*3/uL Normal 1.00-4.00 [facility] Comment on above: Order Comment: Speci men Type: BLOOD SPECIMENOrdering Facility: [facility] Address: [address] [place] [address] Performed By: #### 5 7021-8 ####GRANT LABORATORYCLIA [id number] [place] [id number] [place] Lymphocytes/100 WBC (Bld) 40.6 % Normal [facility] Comment on above: Order Comment: Speci men Type: BLOOD SPECIMENOrdering Facility: [facility] Address: [address] [place] [address] Performed By: #### 5 7021-8 ####GRANT LABORATORYCLIA [id number] [place] [address] [place] MCH (RBC) [Entitic mass] 29.9 pg Normal 26.0-34.0 [facility] Comment on above: Order Comment: Speci men Type: BLOOD SPECIMENOrdering Facility: [facility] Address: [address] [place] [address] Performed By: #### 5 7021-8 ####GRANT LABORATORYCLIA [id number] [place] [id number] [place] MCHC (RBC) [Mass/Vol] 32.4 g/dL Normal 30.5-36.0 [facility] Comment on above: Order Comment: Speci men Type: BLOOD SPECIMENOrdering Facility: [facility] Address: [address] [place] [address] Performed By: #### 5 7021-8 ####[facility] LABORATORYCLIA [id number] [address] [place] MCV (RBC) [Entitic vol] 92.4 fL Normal 80.0-100.0 [facility] Comment on above: Order Comment: Speci men Type: BLOOD SPECIMENOrdering Facility: [facility] Address: [address] [place] [address] Performed By: #### 5 7021-8 ####[facility] LABORATORYCLIA [id number] [address] [place] Monocytes (Bld) [#/Vol] 0.50 10*3/uL Normal <0.87 [facility] Comment on above: Order Comment: Speci men Type: BLOOD SPECIMENOrdering Facility: [facility] Address: [address] [place] [address] Performed By: #### 5 7021-8 ####GRANT LABORATORYCLIA [id number] [address] Monocytes/100 WBC (Bld) 6.1 % Normal [facility] Comment on above: Order Comment: Speci men Type: BLOOD SPECIMENOrdering Facility: [facility] Address: [address] [place] [address] Performed By: #### 5 7021-8 ####GRANT LABORATORYCLIA [id number] [place] [address] [place] Neutrophils (Bld) [#/Vol] 3.89 10*3/uL Normal 1.45-7.50 [facility] Comment on above: Order Comment: Speci men Type: BLOOD SPECIMENOrdering Facility: [facility] Address: [address] [place] [address] Performed By: #### 5 7021-8 ####GRANT LABORATORYCLIA [id number] [place] [address] [place] Neutrophils/100 WBC (Bld) 47.3 % Normal [facility] Comment on above: Order Comment: Speci men Type: BLOOD SPECIMENOrdering Facility: [facility] Address: [address] [place] [address] Performed By: #### 5 7021-8 ####GRANT LABORATORYCLIA [id number] [place] [address] [place] Nucleated RBC (Bld) [#/Vol] 10*3/uL Normal <0.01 [facility] Comment on above: Order Comment: Speci men Type: BLOOD SPECIMENOrdering Facility: [facility] Address: [address] [place] [address] Performed By: #### 5 7021-8 ####GRANT LABORATORYCLIA [id number] [place] [address] [place] Nucleated RBC/100 WBC (Bld) [Ratio] 0.0 /100 WBC Normal [facility] Comment on above: Order Comment: Speci men Type: BLOOD SPECIMENOrdering Facility: [facility] Address: [address] [place] [address] Performed By: #### 5 7021-8 ####GRANT LABORATORYCLIA [id number] [place] [id number] [place] Platelet mean volume (Bld) [Entitic vol] 9.9 fL Normal 9.0-12.7 [facility] Comment on above: Order Comment: Speci men Type: BLOOD SPECIMENOrdering Facility: [facility] Address: [address] [place] [address] Performed By: #### 5 7021-8 ####BUTTE LABORATORYCLIA [id number] [place] [id number] [facility] Platelets (Bld) [#/Vol] 288 10*3/uL Normal 150-400 [facility] Comment on above: Order Comment: Speci men Type: BLOOD SPECIMENOrdering Facility: [facility] Address: [address] [place] [address] Performed By: #### 5 7021-8 ####BUTTE LABORATORYCLIA [id number] [place] [id number] [facility] RBC (Bld) [#/Vol] 4.48 10*6/uL Normal 3.90-5.20 [facility] Comment on above: Order Comment: Speci men Type: BLOOD SPECIMENOrdering Facility: [facility] Address: [address] [place] [address] Performed By: #### 5 7021-8 ####BUTTE LABORATORYCLIA [id number] [place] [id number] [facility] WBC (Bld) [#/Vol] 8.21 10*3/uL Normal 3.70-11.00 [facility] Comment on above: Order Comment: Speci men Type: BLOOD SPECIMENOrdering Facility: [facility] Address: [address] [place] [address] Performed By: #### 5 7021-8 ####BUTTE LABORATORYCLIA [id number] [place] [id number] [facility] CNOVon 10-16-2024 CNOV Office Visit (EXPNOL ) SAEED SARABIA ([id number]) 1940 F Date Time Provider Department 10/16/24 11:55 AM BRIANA SCHWARZ EXPNOL During your visit today, we recorded the following information about you: Temperature Pulse Respiration Blood pressure 99.3 degrees 76/minute 18/minute 156/61 Briana Schwarz PA-C 10/16/2024 12:57 PM Signed [facility] October 16, 2024 Saeed Sarabia 1940 Patient presents with: Abdominal Pain: X6 wks on and off, change in mental status x3 days Was recently treated for uti getting better then abd pain and admitted to [place] and then transferred to [place] and admitted for a week with gall [...] to ER due to the limitations of [facility] testing capabilities. The patient verbalized understanding and denies questions. Patient transported to Emergency Department by who refused transport Abd exam with lower abd pain no guarding no masses no rebound. The patient refused transfer to ER by ambulance. The patient was accompanied by and states that they feel safe to self transport. Advised of possible risks. Report called Briana Schwarz PA-C [facility] Referring Provider: SELF [200] Allergies As of [...] Status:Closed by BRIANA SCHWARZ on 10/16/24 Normal [facility] CT ABD/PEL W IVCONon 025 CT ABD/PEL W IVCON * * *Final Report* * * DATE OF EXAM: Oct 16 2024 3:43PM [facility]VC 0530 - CT ABD/PEL W IVCON / [...] Recommendation: US FEMALE PELVIS NON-OB NON TORSION ([id number]) Time Frame: At the discretion of the clinical team. COMMUNICATION: Results will be communicated with the ordering provider via [employer] staff message or phone message by [employer] within 2 business days of report finalization. --END OF FINDING-- Spout Positioner: ROSS Transcribe Date/Time: Oct 16 2024 3:53P Dictated by : YUKI FRAGOSO MD This examination was interpreted and the report reviewed and electronically signed by: YUKI FRAGOSO MD on Oct 16 2024 4:13PM EST [id number] ACTIONABLE Invalid Interpretation Code [facility] Comprehensive metabolic 2000 panelon 10-16-2024 Albumin [Mass/Vol] 4.1 g/dL Normal 3.9-4.9 [facility] Comment on above: Order Comment: Speci men Type: BLOOD SPECIMENOrdering Facility: [facility] Address: [address] [place] [address] Performed By: #### 2 4323-8, ####BUTTE LABORATORYCLIA [id number] [place] [address] [place] ALP [Catalytic activity/Vol] 56 U/L Normal 34-123 [facility] Comment on above: Order Comment: Speci men Type: BLOOD SPECIMENOrdering Facility: [facility] Address: [address] [place] [address] Performed By: #### 2 4328, ####BUTTE LABORATORYCLIA [id number] [place] [id number] [place] ALT [Catalytic activity/Vol] 17 U/L Normal 7-38 [facility] Comment on above: Order Comment: Speci men Type: BLOOD SPECIMENOrdering Facility: [facility] Address: [address] [place] [address] Performed By: #### 2 4323-8, ####BUTTE LABORATORYCLIA [id number] [place] [address] [place] Anion gap [Moles/Vol] 22 mmol/L High 8-15 [facility] Comment on above: Order Comment: Speci men Type: BLOOD SPECIMENOrdering Facility: [facility] Address: [address] [place] [address] Performed By: #### 2 4322-8, ####GRANT LABORATORYCLIA [id number] [place] [id number] [place] AST [Catalytic activity/Vol] 24 U/L Normal 13-35 [facility] Comment on above: Order Comment: Speci men Type: BLOOD SPECIMENOrdering Facility: [facility] Address: [address] [place] [address] Performed By: #### 2 8, ####GRANT LABORATORYCLIA [id number] [place] [id number] [place] Bilirubin [Mass/Vol] 0.4 mg/dL Normal 0.2-1.3 [facility] Comment on above: Order Comment: Speci men Type: BLOOD SPECIMENOrdering Facility: [facility] Address: [address] [place] [address] Performed By: #### 2 4323-05, ####GRANT LABORATORYCLIA [id number] [place] [address] [place] Calcium [Mass/Vol] 9.7 mg/dL Normal 8.5-10.2 [facility] Comment on above: Order Comment: Speci men Type: BLOOD SPECIMENOrdering Facility: [facility] Address: [address] [place] [address] Performed By: #### 2 8, ####GRANT LABORATORYCLIA [id number] [place] [id number] [place] Chloride [Moles/Vol] 96 mmol/L Low 98-107 [facility] Comment on above: Order Comment: Speci men Type: BLOOD SPECIMENOrdering Facility: [facility] Address: [address] [place] [address] Performed By: #### 2 4322-8, ####GRANT LABORATORYCLIA [id number] [place] [id number] [place] CO2 [Moles/Vol] 19 mmol/L Low 22-30 [facility] Comment on above: Order Comment: Speci men Type: BLOOD SPECIMENOrdering Facility: [facility] Address: [address] [place] [address] Performed By: #### 2 4323-8, ####[facility] LABORATORYCLIA [id number] [place] [id number] [place] Creatinine [Mass/Vol] 0.83 mg/dL Normal 0.58-0.96 [facility] Comment on above: Order Comment: Specnae men Type: BLOOD SPECIMENOrdering Facility: [facility] Address: [address] [place] [address] Performed By: #### 2 4323-8, ####[facility] LABORATORYCLIA [id number] [place] [id number] [place] [facility] Creatinine and Glomerular filtration rate.predicted panel (S/P/Bld) 70 mL/min/1.73m??? Normal >=60 [facility] Comment on above: Order Comment: Akilah nieto Type: BLOOD SPECIMENOrdering Facility: [facility] Address: [address] [place] [address] Result Comment: Roz mated Glomerular Filtration Rate [...] actual GFR. Performed By: #### 2 4323-8, ####GRANT LABORATORYCLIA [id number] [place] [id number] [place] Glucose [Mass/Vol] 127 mg/dL High 74-99 [facility] Comment on above: Order Comment: Akilah gerson Type: BLOOD SPECIMENOrdering Facility: [facility] Address: [address] [place] [address] Result Comment: The [place] Diabetes Association (ADA) provides guidance for cutoff [...] Standards of Medical Care in Diabetes 2016, [place] [employer] Association. Diabetes Care. 2016.39(Suppl 1). Performed By: #### 2 4323-8, ####GRANT LABORATORYCLIA [id number] [place] [address] [place] Potassium [Moles/Vol] 4.4 mmol/L Normal 3.7-5.1 [facility] Comment on above: Order Comment: Speci men Type: BLOOD SPECIMENOrdering Facility: [facility] Address: [address] [place] [address] Performed By: #### 2 43212-14, ####[facility] LABORATORYCLIA [id number] [place] [id number] [place] Protein [Mass/Vol] 7.3 g/dL Normal 6.3-8.0 [facility] Comment on above: Order Comment: Speci men Type: BLOOD SPECIMENOrdering Facility: [facility] Address: [address] [place] [address] Performed By: #### 2 4323, ####GRANT LABORATORYCLIA [id number] [place] [id number] [place] Sodium [Moles/Vol] 137 mmol/L Normal 136-144 [facility] Comment on above: Order Comment: Speci men Type: BLOOD SPECIMENOrdering Facility: [facility] Address: [address] [place] [address] Performed By: #### 2 43212-14, ####[facility] LABORATORYCLIA [id number] [place] [address] [place] Urea nitrogen [Mass/Vol] 12 mg/dL Normal 7-21 [facility] Comment on above: Order Comment: Speci men Type: BLOOD SPECIMENOrdering Facility: [facility] Address: [address] [place] [address] Performed By: #### 2 4323-8, 64712-8 ####GRANT LABORATORYCLIA [id number] [place] [address] [place] ECG COMPLETEon 10-16-2024 ECG COMPLETE Ventricular Rate : 7 6 BPM Atrial Rate : 77 BPM P-R Interval : 113 ms QRS Duration : 146 ms Q-T Interval : 413 ms QTC Calculation(Bazett) : 465 ms Calculated P [place] : 97 degrees Calculated R [place] : -42 degrees Calculated T [place] : 100 degrees Sinus rhythm Atrial premature complex Borderline short MD interval Left bundle branch block Abnormal ECG No Stemi Confirmed by JASON SAGASTUME MD ([id number]) on 10/16/2024 4:13:30 PM NAME : SAEED SARABIA PID : [id number] : 1940 Gender : Female Race : ORD : [id number] Procedure Date : Oct 16 2024 13:36:17 Edit Date : Oct 16 2024 16:13:35 Diagnosis: Sinus rhythm Atrial premature complex Borderline short MD interval Left bundle branch block Abnormal ECG No Stemi Confirmed by JASON SAGASTUME MD ([id number]) on 10/16/2024 4:13:30 PM Test Reason : Chest Pain Location : 402 : FVED [id number] Overread By : JASON SAGASTUME MD Edited By : JASON SAGASTUME MD Referred By : , Acquired by : [id number], [facility] ED NOTEon 10-16-2024 ED NOTE HNO ID: [id number] Author: TRUMAN SUBRAMANIAN RN Service: ? Author Type: Registered Nurse Type: ED Notes Filed: 10/16/2024 13:29 Note Text: Bed: 08-ED Expected date: 10/16/24 Expected time: 12:55 PM Means of arrival: [place] [facility] Comments: 84F confusion x 3 days per spouse From AANDox2 169/96, 88, 96%, BGL 135 +IV prenotification [facility] ED PROV NOTEon 10-16-2024 ED PROV NOTE HNO ID: [id number] Author: EVER KEENE DO Service: ? Author [...] current altered mentation. I did review her [facility] note which did show that she had an MRI scan of her head which did show chronic microvascular changes with nothing acute. Patient will be admitted to the CDU for further management of her altered mentation. 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 Abdominal Pain: Distention noted problems with abdominal pain and pressure for some time. Sent By Md: [facility] pt to ED for further eval HPI Patient is an 84-year-old female who presents with altered mental status. Brought in by family. Increasing confusion over the past few days. Patient was recently hospitalized in [place] for abdominal pain, confusion. Encephalopathy of unclear [...] in by . Patient was admitted to [place] in September for similar presentation, no source [...] At this time will obtain CT to [facility] (more content not included)... Normal [facility] ED PROV NOTE HNO ID: [id number] Author: BRIANNA RASMUSSEN DO Service: Emergency Medicine Author Type: Physician Type: ED Provider Notes Filed: 10/16/2024 12:53 Note Text: ED E-CONSULT PROVIDER TO PROVIDER NOTE SERVICE DATE: 10/16/2024 [facility] SERVICE TIME: 12:49 PM REQUESTING PROVIDER: Briana Schwarz PA-C REQUESTING LOCATION: [facility] CONSULTING SERVICE: Emergency Services I am being asked to provide an opinion on management for Saeed who is a 84 year old female. ASSESSMENT Recent treatment for UTI end of August Admitted to [facility] in September Increased confusion x 3 days, disoriented No N/V + lower abd pain From chart review from OSH admission: Hospital course: 83yoF who was admitted from [place] to [facility] on 09/17 for concern for cholecystitis. Patient was seen at [place] ED for abdominal pain and AMS. CT head was unremarkable but CT Abd showed signs concerning for cholecystitis with the presence of cholelithiasis. She was transferred to [facility] with General Surgery evaluation. HIDA [...] the requesting team. The patient or patient's international representative consented to e-consultation. SIGNATURE: Brianna Rasmussen DO PATIENT NAME: Saeed Sarabia DATE: October 16, 2024 TIME: 12:49 PM I have communicated my name and active licensure. The patient's identity and physical location were verified at the time of this visit. Either the patient or their legal international representative has been informed of the risks and benefits of -- and alternatives to -- treatment through a remote evaluation and consents to proceed with the evaluation remotely. BRIANNA RASMUSSEN 10/16/24 1253 Normal [facility] HISTORY PHYSICALon HISTORY PHYSICAL HNO ID: [id number] Author: SUSAN SPRAGUE PA-C Service: General Internal Medicine Author Type: Physician Beveler Type: H&P Filed: 10/17/2024 05:17 Note Text: Department of Internal Medicine HISTORY AND PHYSICAL EXAMINATION SERVICE DATE: 10/16/2024 SERVICE TIME: 8:20 PM PRIMARY CARE PHYSICIAN: Galindo Miller, TRIALS MANAGER, TRIALS MANAGER CONTACT COVERAGE: See Treatment Team and contact assigned BLAYNE. If no BLAYNE assigned: -5N/5W/5PAV/6th floor/2S or ED Hold, [facility] Team A: [phone] -[facility] or [facility], [facility] Team B: [phone] Subjective CHIEF COMPLAINT: Altered Mental Status HPI: [...] in this time. She was admitted to [facility] on 09/17 for concern for [...] Abdomen is (more content not included)... Normal [facility] Magnesium SerPl-mCncon 10-16 Magnesium [Mass/Vol] 1.6 mg/dL Low 1.7-2.3 [facility] Comment on above: Order Comment: Speci men Type: BLOOD SPECIMENOrdering Facility: [facility] Address: [address] [place] [address] Performed By: #### 2 4323-8, 92825-7 ####BUTTE LABORATORYCLIA [id number] [place] [address] [place] US DVT LOWER RTon 10-16-2024 US DVT LOWER RT * * *Final Report* * * DATE OF EXAM: Oct 16 2024 4:47PM [facility] 1007 - US DVT LOWER RT / [...] imaged segments of the right lower extremity. Spout Positioner: PSCB Transcribe Date/Time: Oct 16 2024 4:56P Dictated by : CLARY HUERTAS MD This examination was interpreted and the report reviewed and electronically signed by: CLARY HUERTAS MD on Oct 16 2024 5:07PM EST [id number] Normal [facility] Urinalysis complete panel (U )on 10-16-2024 Bilirubin Ql (U) Negative Normal Negative [facility] Comment on above: Order Comment: Speci men Type: URINE SPECIMENOrdering Facility: [facility] Address: [address] [place] [address] Performed By: #### 2 4356-8 ####BUTTE LABORATORYCLIA [id number] [place] [address] [place] Clarity (Unsp spec) Clear Normal Clear [facility] Comment on above: Order Comment: Speci men Type: URINE SPECIMENOrdering Facility: [facility] Address: [address] [place] [address] Performed By: #### 2 4356-8 ####BUTTE LABORATORYCLIA [id number] [place] [address] [place] Color (U) Light Yellow Normal Yellow [facility] Comment on above: Order Comment: Speci men Type: URINE SPECIMENOrdering Facility: [facility] Address: [address] [place] [address] Performed By: #### 2 4356-8 ####[facility] LABORATORYCLIA [id number] [address] [place] Epithelial cells LM.HPF (Urine sed) [#/Area] Few Normal [facility] Comment on above: Order Comment: Speci men Type: URINE SPECIMENOrdering Facility: [facility] Address: [address] [place] [address] Performed By: #### 2 4356-8 ####GRANT LABORATORYCLIA [id number] [place] [address] [place] Glucose Test strip (U) [Mass/Vol] Negative Normal Trace, Negative [facility] Comment on above: Order Comment: Speci men Type: URINE SPECIMENOrdering Facility: [facility] Address: [address] [place] [address] Performed By: #### 2 4356-8 ####GRANT LABORATORYCLIA [id number] [address] [place] Hemoglobin Ql (U) Negative Normal Negative, Trace [facility] Comment on above: Order Comment: Speci men Type: URINE SPECIMENOrdering Facility: [facility] Address: [address] [place] [address] Performed By: #### 2 4356-8 ####[facility] LABORATORYCLIA [id number] [place] [address] [place] Hyaline casts (Urine sed) [#/Area] 1-3 /LPF Abnormal 0 /LPF [facility] Comment on above: Order Comment: Speci men Type: URINE SPECIMENOrdering Facility: [facility] Address: [address] [place] [address] Performed By: #### 2 4356-8 ####GRANT LABORATORYCLIA [id number] [address] [place] Ketones Ql (U) Negative Normal Negative, [facility] Comment on above: Order Comment: Speci men Type: URINE SPECIMENOrdering Facility: [facility] Address: [address] [place] [address] Performed By: #### 2 4356-8 ####[facility] LABORATORYCLIA [id number] [address] [place] Leukocyte esterase Test strip Ql (U) Negative Normal Negative, 25 Oh/uL [facility] Comment on above: Order Comment: Speci men Type: URINE SPECIMENOrdering Facility: [facility] Address: [address] [place] [address] Performed By: #### 2 4356-8 ####[facility] LABORATORYCLIA [id number] [place] [address] [place] Nitrite Ql (U) Negative Normal Negative [facility] Comment on above: Order Comment: Speci men Type: URINE SPECIMENOrdering Facility: [facility] Address: [address] [place] [address] Performed By: #### 2 4356-8 ####[facility] LABORATORYCLIA [id number] [place] [address] [place] pH (U) 6.0 [pH] Normal 5.0-8.0 [facility] Comment on above: Order Comment: Speci men Type: URINE SPECIMENOrdering Facility: [facility] Address: [address] [place] [address] Performed By: #### 2 4356-8 ####[facility] LABORATORYCLIA [id number] [place] [address] [place] Protein (U) [Mass/Vol] Negative Normal Trace , Negative [facility] Comment on above: Order Comment: Speci men Type: URINE SPECIMENOrdering Facility: [facility] Address: [address] [place] [address] Performed By: #### 2 4356-8 ####[facility] LABORATORYCLIA [id number] [place] [address] [place] RBC LM.HPF (Urine sed) [#/Area] 0-3 /HPF Normal 0-3 /HPF [facility] Comment on above: Order Comment: Speci men Type: URINE SPECIMENOrdering Facility: [facility] Address: [address] [place] [address] Performed By: #### 2 4356-8 ####[facility] LABORATORYCLIA [id number] [address] STATES OF [facility] Specific gravity (U) [Rel density] 1.010 Normal 1.005-1.030 [facility] Comment on above: Order Comment: Speci men Type: URINE SPECIMENOrdering Facility: [facility] Address: [address] [place] [address] Performed By: #### 2 4356-8 ####[facility] LABORATORYCLIA [id number] [place] [address] [place] Urobilinogen Ql (U) Normal Normal Normal [facility] Comment on above: Order Comment: Speci men Type: URINE SPECIMENOrdering Facility: [facility] Address: [address] [place] [address] Performed By: #### 2 4356-8 ####[facility] [id number] [place] [address] [place] WBC LM.HPF (Urine sed) [#/Area] 0-5 /HPF Normal 0-5 /HPF [facility] Comment on above: Order Comment: Speci men Type: URINE SPECIMENOrdering Facility: [facility] Address: [address] [place] [address] Performed By: #### 2 4356-8 ####[facility] LABORATORYCLIA [id number] [place] [address] [place] XR CHEST 1V [...] PATCHY BIBASILAR ATELECTASIS/INFILTRATE , NEW SINCE 03/28/2022 Spout Positioner: ROSS Transcribe Date/Time: Oct 16 2024 3:06P Dictated by : YAKELIN NICOLE MD This examination was interpreted and the report reviewed and electronically signed by: YAKELIN NICOLE MD on Oct 16 2024 3:06PM EST [id number] [facility] 30on 09-21-2024 30 The patient is [...] and maintained or improved Outcome: Progressing Normal [facility] 30 Daily Case Managemen t Update Multidisciplinary [...] further OTM needs identified at this time. [facility] will continue to follow patient and assist [...] PT (with focus on balance) OT Recommendations: snf facility placement Does patient understand post acute [...] OT? Answer: Evaluate and treat 09/17/242216 Normal [facility] CBC WITH AUTO DIFFERENTIALon 09-21-2024 Basophils (Bld) [#/Vol] 0.03 10*3/uL Normal 0.00-0.20 [facility] Comment on above: Performed By: #### L [id number] #### [facility] RESPIRATORY THERAPY [address] [place] [address] [facility] Basophils/100 WBC (Bld) 0.4 % Normal 0.0-1.0 [facility] Comment on above: Performed By: #### L [id number] #### [facility] RESPIRATORY THERAPY [address] [place], [place] [address] Eosinophils (Bld) [#/Vol] 0.18 10*3/uL Normal 0.00-0.50 [facility] Comment on above: Performed By: #### L [id number] #### [facility] RESPIRATORY THERAPY [address] [place] [address] [facility] Eosinophils/100 WBC (Bld) 2.3 % Normal 0.0-6.0 [facility] Comment on above: Performed By: #### L [id number] #### [facility] RESPIRATORY THERAPY [address] [place], [place] [address] Erythrocyte distribution width (RBC) [Ratio] 13.2 % Normal 11.5-15.0 [facility] Comment on above: Performed By: #### L [id number] #### [facility] RESPIRATORY THERAPY [address] [place], [place] [address] ERYTHROCYTE MEAN CORPUSCULAR HEMOGLOBIN CONCENTRATION (G/DL) BY AUTOMATED 31.7 g/dL Low 32.0-35.0 [facility] Comment on above: Performed By: #### L [id number] #### [facility] RESPIRATORY THERAPY [address] [place] [address] [facility] Hematocrit (Bld) [Volume fraction] 38.8 % Normal 36.0-48.0 [facility] Comment on above: Performed By: #### L [id number] #### [facility] RESPIRATORY THERAPY [address] [place] [address] [place] Hemoglobin (Bld) [Mass/Vol] 12.3 g/dL Normal 12.0-15.0 [facility] Comment on above: Performed By: #### L [id number] #### [facility] RESPIRATORY THERAPY [address] [place] [address] [place] Immature granulocytes (Bld) [#/Vol] 0.03 10*3/uL Normal 0.00-0.20 [facility] Comment on above: Performed By: #### L [id number] #### [facility] RESPIRATORY THERAPY [address] [place] [address] [place] Immature granulocytes/100 WBC (Bld) 0.4 % Normal 0.0-1.0 [facility] Comment on above: Performed By: #### L [id number] #### [facility] RESPIRATORY THERAPY [address] [place], [place] [address] Lymphocytes (Bld) [#/Vol] 2.57 10*3/uL Normal 1.20-4.00 [facility] Comment on above: Performed By: #### L [id number] #### [facility] RESPIRATORY THERAPY [address] [place], [place] [address] Lymphocytes/100 WBC (Bld) 33.2 % Normal 20.0-45.0 [facility] Comment on above: Performed By: #### L [id number] #### [facility] RESPIRATORY THERAPY [address] [place], [place] [address] MCH (RBC) [Entitic mass] 29.9 pg Normal 27.0-33.0 [facility] Comment on above: Performed By: #### L [id number] #### [facility] RESPIRATORY THERAPY [address] [place], [place] [address] MCV (RBC) [Entitic vol] 94.2 fL Normal 82.0-98.0 [facility] Comment on above: Performed By: #### L [id number] #### [facility] RESPIRATORY THERAPY [address] [place], [place] [address] Monocytes (Bld) [#/Vol] 0.74 10*3/uL Normal 0.10-1.00 [facility] Comment on above: Performed By: #### L [id number] #### [facility] RESPIRATORY THERAPY [address] [place], [place] [address] Monocytes/100 WBC (Bld) 9.6 % Normal 5.0-12.0 [facility] Comment on above: Performed By: #### L [id number] #### [facility] RESPIRATORY THERAPY [address] [place], [place] [address] Neutrophils (Bld) [#/Vol] 4.21 10*3/uL Normal 1.60-7.60 [facility] Comment on above: Performed By: #### L [id number] #### [facility] RESPIRATORY THERAPY [address] [place] [address] [place] Neutrophils/100 WBC (Bld) 54.5 % Normal 40.0-72.0 [facility] Comment on above: Performed By: #### L [id number] #### [facility] RESPIRATORY THERAPY [address] [place] [address] [place] NRBC (PER 100 WBCS) BY AUTOMATED COUNT 0.0 % Normal 0 [facility] Comment on above: Performed By: #### L [id number] #### [facility] RESPIRATORY THERAPY [address] [place] [address] [place] PLATELETS (10*3/UL) IN BLOOD AUTOMATED COUNT 289 10*3/uL Normal 150-400 [facility] Comment on above: Performed By: #### L [id number] #### [facility] RESPIRATORY THERAPY [address] [place] [address] [facility] RBC (Bld) [#/Vol] 4.12 10*6/uL Normal 3.80-5.00 [facility] Comment on above: Performed By: #### L [id number] #### [facility] RESPIRATORY THERAPY [address] [place] [address] [place] WBC (Bld) [#/Vol] 7.73 10*3/uL Normal 4.00-10.60 [facility] Comment on above: Performed By: #### L [id number] #### [facility] RESPIRATORY THERAPY [address] [place] [address] [facility] COMPREHENSIVE METABOLIC PANE Sadiq 09-21-2024 Albumin [Mass/Vol] 3.5 g/dL Normal 3.5-5.7 [facility] Comment on above: Performed By: #### L [id number] ####[facility] LAB (BEAKER)[address] [place] [address] ALP [Catalytic activity/Vol] 45 U/L Normal 34-104 [facility] Comment on above: Performed By: #### L [id number] ####[facility] (BEAKER)[address] [place] [address] ALT [Catalytic activity/Vol] 25 U/L Normal 7-52 [facility] Comment on above: Performed By: #### L [id number] ####[facility] (BEAKER)[address] [place] [address] Anion gap [Moles/Vol] 12 mmol/L Normal 7-20 [facility] Comment on above: Performed By: #### L [id number] ####[facility] ([facility]AKER)[address] [place] [address] AST [Catalytic activity/Vol] 31 U/L Normal 13-39 [facility] Comment on above: Performed By: #### L [id number] ####[facility] (BEAKER)[address] [place] [address] Bilirubin [Mass/Vol] 0.5 mg/dL Normal 0.3-1.0 [facility] Comment on above: Performed By: #### L [id number] ####[facility] (BEAKER)[address] [place] [address] Calcium [Mass/Vol] 8.7 mg/dL Normal 8.6-10.3 [facility] Comment on above: Performed By: #### L [id number] ####[facility] (BEAKER)[address] [place] [address] Chloride [Moles/Vol] 104 mmol/L Normal 98-107 [facility] Comment on above: Performed By: #### L [id number] ####[facility] (BEAKER)[address] [place] [address] CO2 [Moles/Vol] 26 mmol/L Normal 21-31 [facility] Comment on above: Performed By: #### L [id number] ####[facility] (BEAKER)[address] [place] [address] Creatinine [Mass/Vol] 1.00 mg/dL Normal 0.60-1.20 [facility] Comment on above: Performed By: #### L [id number] ####[facility] (BEAKER)[address] [place] [address] GLOMERULAR FILTRATION RATE ML/MIN/1.73 SQ M.PREDICTED 55.9 mL/min/1.73m*2 Low >60.0 [facility] Comment on above: Result Comment: [facility]???s estimated glomerular filtration rate (eGFR) will no [...] of individuals. Performed By: #### L [id number] ####[facility] ([facility])[address] [facility] [address] Glucose [Mass/Vol] 131 mg/dL High 70-100 [facility] Comment on above: Performed By: #### L [id number] ####[facility] ([facility])[address] [facility] [place] [address] Potassium [Moles/Vol] 4.4 mmol/L Normal 3.5-5.1 [facility] Comment on above: Performed By: #### L [id number] ####[facility] ([facility])[address] [facility] [place] [address] Protein [Mass/Vol] 5.9 g/dL Low 6.0-8.3 [facility] Comment on above: Performed By: #### L [id number] ####[facility] ([facility])[address] [address] Sodium [Moles/Vol] 138 mmol/L Normal 136-145 [facility] Comment on above: Performed By: #### L [id number] ####[facility] ([facility])[address] [facility] [place] [address] Urea nitrogen [Mass/Vol] 15 mg/dL Normal 7-25 [facility] Comment on above: Performed By: #### L [id number] ####[facility] (BEAKER)[address] [place] [address] UREA NITROGEN/CREATININE (MASS RATIO) IN SER/PLAS 15.0 Normal [facility] Comment on above: Performed By: #### L [id number] ####[facility] ([facility])[address] [place] [address] POCT GLUCOSE METER UNSOLICIT ED RESULTSon 09-21-2024 Glucose [Mass/Vol] 182 mg/dL High 70-105 [facility] Comment on above: Order Comment: Waive d Testing in the ED is performed under the ED CLIA certificate #[id number]. Result Comment: srab ee Performed By: #### L [id number] ####[facility] ([facility])[address] [place] [address] Glucose [Mass/Vol] 114 mg/dL High 70-105 [facility] Comment on above: Order Comment: Waive d Testing in the ED is performed under the ED CLIA certificate #[id number]. Result Comment: srab ee Performed By: #### L [id number] #### [facility] ([facility]) [address] [place] [address] 30on 09-20-2024 30 The patient is Moderately [...] Skin integrity remains intact Outcome: Progressing Normal [facility] CBC WITH AUTO DIFFERENTIALon 09-20-2024 Basophils (Bld) [#/Vol] 0.03 10*3/uL Normal 0.00-0.20 [facility] Comment on above: Performed By: #### L [id number] ####[facility] [place] [address] Basophils/100 WBC (Bld) 0.4 % Normal 0.0-1.0 [facility] Comment on above: Performed By: #### L [id number] ####[facility] (BEAKER)[address] [place] [address] Eosinophils (Bld) [#/Vol] 0.12 10*3/uL Normal 0.00-0.50 [facility] Comment on above: Performed By: #### L [id number] ####[facility] ([facility] [place] [address] Eosinophils/100 WBC (Bld) 1.6 % Normal 0.0-6.0 [facility] Comment on above: Performed By: #### L [id number] ####[facility] ([facility])[address] [place] [address] Erythrocyte distribution width (RBC) [Ratio] 13.4 % Normal 11.5-15.0 [facility] Comment on above: Performed By: #### L [id number] ####[facility] ([facility])[address] [place] [address] ERYTHROCYTE MEAN CORPUSCULAR HEMOGLOBIN CONCENTRATION (G/DL) BY AUTOMATED 32.0 g/dL Normal 32.0-35.0 [facility] Comment on above: Performed By: #### L [id number] ####[facility] ([facility] [place] [address] Hematocrit (Bld) [Volume fraction] 39.7 % Normal 36.0-48.0 [facility] Comment on above: Performed By: #### L [id number] ####[facility] ([facility] [place] [address] Hemoglobin (Bld) [Mass/Vol] 12.7 g/dL Normal 12.0-15.0 [facility] Comment on above: Performed By: #### L [id number] ####[facility] (BEAKER)[address] [place] [address] Immature granulocytes (Bld) [#/Vol] 0.04 10*3/uL Normal 0.00-0.20 [facility] Comment on above: Performed By: #### L [id number] ####[facility] ([facility] [place] [address] Immature granulocytes/100 WBC (Bld) 0.5 % Normal 0.0-1.0 [facility] Comment on above: Performed By: #### L [id number] ####[facility] ([facility])[address] [place] [address] Lymphocytes (Bld) [#/Vol] 1.74 10*3/uL Normal 1.20-4.00 [facility] Comment on above: Performed By: #### L [id number] ####[facility] ([facility])[address] [place] [address] Lymphocytes/100 WBC (Bld) 22.6 % Normal 20.0-45.0 [facility] Comment on above: Performed By: #### L [id number] ####[facility] ([facility])[address] [place] [address] MCH (RBC) [Entitic mass] 30.0 pg Normal 27.0-33.0 [facility] Comment on above: Performed By: #### L [id number] ####[facility] ([facility])[address] [place] [address] MCV (RBC) [Entitic vol] 93.6 fL Normal 82.0-98.0 [facility] Comment on above: Performed By: #### L [id number] ####[facility] ([facility])[address] [place] [address] Monocytes (Bld) [#/Vol] 0.73 10*3/uL Normal 0.10-1.00 [facility] Comment on above: Performed By: #### L [id number] ####[facility] ([facility] [place] [address] Monocytes/100 WBC (Bld) 9.5 % Normal 5.0-12.0 [facility] Comment on above: Performed By: #### L [id number] ####[facility] (BEAKER)[address] [place] [address] Neutrophils (Bld) [#/Vol] 5.08 10*3/uL Normal 1.60-7.60 [facility] Comment on above: Performed By: #### L [id number] ####[facility] (BEAKER)[address] [place] [address] Neutrophils/100 WBC (Bld) 65.9 % Normal 40.0-72.0 [facility] Comment on above: Performed By: #### L [id number] ####[facility] ([facility])[address] [place] [address] NRBC (PER 100 WBCS) BY AUTOMATED COUNT 0.0 % Normal 0 [facility] Comment on above: Performed By: #### L [id number] ####[facility] ([facility])[address] [place] [address] PLATELETS (10*3/UL) IN BLOOD AUTOMATED COUNT 286 10*3/uL Normal 150-400 [facility] Comment on above: Performed By: #### L [id number] ####[facility] ([facility])[address] [place] [address] RBC (Bld) [#/Vol] 4.24 10*6/uL Normal 3.80-5.00 [facility] Comment on above: Performed By: #### L [id number] ####[facility] ([facility] [place] [address] WBC (Bld) [#/Vol] 7.70 10*3/uL Normal 4.00-10.60 [facility] Comment on above: Performed By: #### L [id number] ####[facility] (BEAKER)[address] [place] [address] COMPREHENSIVE METABOLIC PANE Sadiq 09-20-2024 Albumin [Mass/Vol] 3.7 g/dL Normal 3.5-5.7 [facility] Comment on above: Performed By: #### L [id number] #### [facility] (BEAKER) [address] [place] [address] ALP [Catalytic activity/Vol] 44 U/L Normal 34-104 [facility] Comment on above: Performed By: #### L [id number] #### [facility] (BEAKER) [address] [place] [address] ALT [Catalytic activity/Vol] 12 U/L Normal 7-52 [facility] Comment on above: Performed By: #### L [id number] #### [facility] (BEAKER) [address] [place] [address] Anion gap [Moles/Vol] 11 mmol/L Normal 7-20 [facility] Comment on above: Performed By: #### L [id number] #### [facility] ([facility] [address] [place] [address] AST [Catalytic activity/Vol] 22 U/L Normal 13-39 [facility] Comment on above: Performed By: #### L [id number] #### [facility] ([facility] [address] [place] [address] Bilirubin [Mass/Vol] 0.5 mg/dL Normal 0.3-1.0 [facility] Comment on above: Performed By: #### L [id number] #### [facility] (BEAKER) [address] [place] [address] Calcium [Mass/Vol] 9.0 mg/dL Normal 8.6-10.3 [facility] Comment on above: Performed By: #### L [id number] #### [facility] (BEAKER) [address] [place] [address] Chloride [Moles/Vol] 104 mmol/L Normal 98-107 [facility] Comment on above: Performed By: #### L [id number] #### [facility] (BEAKER) [address] [place] [address] CO2 [Moles/Vol] 27 mmol/L Normal 21-31 [facility] Comment on above: Performed By: #### L [id number] #### [facility] ([facility]) [address] [place] [address] Creatinine [Mass/Vol] 0.86 mg/dL Normal 0.60-1.20 [facility] Comment on above: Performed By: #### L [id number] #### [facility] ([facility]) [address] [place] [address] GLOMERULAR FILTRATION RATE ML/MIN/1.73 SQ M.PREDICTED 67.0 mL/min/1.73m*2 Normal >60.0 [facility] Comment on above: Result Comment: [facility]???s estimated glomerular filtration rate (eGFR) will no [...] group of individuals. Performed By: #### L [id number] #### [facility] ([facility]) [address] [place] [address] Glucose [Mass/Vol] 115 mg/dL High 70-100 [facility] Comment on above: Performed By: #### L [id number] #### [facility] ([facility]) [address] [place] [address] Potassium [Moles/Vol] 4.1 mmol/L Normal 3.5-5.1 [facility] Comment on above: Performed By: #### L [id number] #### [facility] ([facility]) [address] [place] [address] Protein [Mass/Vol] 6.2 g/dL Normal 6.0-8.3 [facility] Comment on above: Performed By: #### L [id number] #### [facility] ([facility]) [address] [place] [address] Sodium [Moles/Vol] 138 mmol/L Normal 136-145 [facility] Comment on above: Performed By: #### L [id number] #### [facility] ([facility]) [address] [place] [address] Urea nitrogen [Mass/Vol] 12 mg/dL Normal 7-25 [facility] Comment on above: Performed By: #### L [id number] #### [facility] [address] [place] [address] UREA NITROGEN/CREATININE (MASS RATIO) IN SER/PLAS 14.0 Normal [facility] Comment on above: Performed By: #### L [id number] #### [facility] [address] [place] [address] CONSULTon 09-20-2024 CONSULT Reason For Consult Encephalopathy without clear etiology Referring Provider: Kayleigh Rivera MD History Of Present Illness Saeed Sarabia is a 83 y.o. female who was transferred from [facility] to [facility] with cholelithiasis and acute cholecystitis. [...] She tells me the president elect is Trump. She is able to follow simple one-step [...] 5 mg oral BID 5 mg at 09/19/242121 bumetanide 1 mg oral PRN glucose 24 [...] 5 mg oral Nightly 5 mg at 09/19/24 2122 sennosides-docusate sodium 1 tablet oral BID PRN sodium chloride 10 mL intravenou (more content not included)... Normal [facility] GASTRINon 09-20-2024 GASTRIN (PG/ML) IN SER/PLAS 21 pg/mL Normal 0-100 [facility] Comment on above: Result Comment: Perf ormed By: [facility] [address] [place] [id number] Log Feeder: Ash Worley MD, PhD CLIA Number: [id number] Performed By: #### L [id number] #### [facility] [address] [place] [address] HPon 09-20-2024 HP H&P reviewed. The patient was examined and there are no changes to the H&P. [facility] NURSNOTEon 09-20-[address] Ramiro rodrigez with patient being discharged from PACU to return to bed 4184 [facility] NURSNOTE May resume a Regular Diet, with strict anti-reflux measures. May resume all medications as ordered by admitting physician. New prescription for Pantoprazole 40 mg PO BID. Repeat EGD Scope outpatient in 8 weeks for evaluation on ulcers and biopsy samples. [facility] NURSNOTE EGD Findings: Gastri c Ulcers; Duodenal Ulcers; LA Grade A Esophagitis [facility] NURSNOTE . [facility] POCT GLUCOSE METER UNSOLICIT ED RESULTSon 09-20-2024 Glucose [Mass/Vol] 138 mg/dL High 70-105 [facility] Comment on above: Order Comment: Waive d Testing in the ED is performed under the ED CLIA certificate #[id number]. Result Comment: [email or web address] Performed By: #### L [id number] ####[facility] ([employer])[address] [place] [address] Glucose [Mass/Vol] 220 mg/dL High 70-105 [facility] Comment on above: Order Comment: Waive d Testing in the ED is performed under the ED CLIA certificate #[id number]. Result Comment: srab ee Performed By: #### L [id number] ####[facility] ([employer])[address] [place] [address] Glucose [Mass/Vol] 165 mg/dL High 70-105 [facility] Comment on above: Order Comment: Waive d Testing in the ED is performed under the ED CLIA certificate #[id number]. Result Comment: [email or web address] Performed By: #### L [id number] ####[facility] (BEAKER)[address] [place] [address] 30on 09-19-2024 30 The patient is Moderately Stable - Low risk of patient condition declining or worsening The patient's goals for the shift include comfort The clinical goals for the shift include VSS, comfort Normal [facility] AMMONIAon 09-19-2024 AMMONIA (UMOL/L) IN PLASMA 25 umol/L Normal 18-72 [facility] Comment on above: Performed By: #### L [id number] #### [facility] RESPIRATORY THERAPY [address] [place] [address] [facility] CBC WITH AUTO DIFFERENTIALon 09-19-2024 Basophils (Bld) [#/Vol] 0.03 10*3/uL Normal 0.00-0.20 [facility] Comment on above: Performed By: #### L [id number] ####[facility] (BEAKER)[address] [place] [address] Basophils/100 WBC (Bld) 0.3 % Normal 0.0-1.0 [facility] Comment on above: Performed By: #### L [id number] ####[facility] (BEAKER)[address] [place] [address] Eosinophils (Bld) [#/Vol] 0.03 10*3/uL Normal 0.00-0.50 [facility] Comment on above: Performed By: #### L [id number] ####[facility] ([facility]AKER)[address] [place] [address] Eosinophils/100 WBC (Bld) 0.3 % Normal 0.0-6.0 [facility] Comment on above: Performed By: #### L [id number] ####[facility] (BEAKER)[address] [place] [address] Erythrocyte distribution width (RBC) [Ratio] 13.2 % Normal 11.5-15.0 [facility] Comment on above: Performed By: #### L [id number] ####[facility] (BEAKER)[address] [place] [address] ERYTHROCYTE MEAN CORPUSCULAR HEMOGLOBIN CONCENTRATION (G/DL) BY AUTOMATED 32.4 g/dL Normal 32.0-35.0 [facility] Comment on above: Performed By: #### L [id number] ####[facility] ([facility])[address] [place] [address] Hematocrit (Bld) [Volume fraction] 41.3 % Normal 36.0-48.0 [facility] Comment on above: Performed By: #### L [id number] ####[facility] (BEAKER)[address] [place] [address] Hemoglobin (Bld) [Mass/Vol] 13.4 g/dL Normal 12.0-15.0 [facility] Comment on above: Performed By: #### L [id number] ####[facility] (BEAKER)[address] [place] [address] Immature granulocytes (Bld) [#/Vol] 0.03 10*3/uL Normal 0.00-0.20 [facility] Comment on above: Performed By: #### L [id number] ####[facility] (BEAKER)[address] [place] [address] Immature granulocytes/100 WBC (Bld) 0.3 % Normal 0.0-1.0 [facility] Comment on above: Performed By: #### L [id number] ####[facility] (BEAKER)[address] [place] [address] Lymphocytes (Bld) [#/Vol] 2.15 10*3/uL Normal 1.20-4.00 [facility] Comment on above: Performed By: #### L [id number] ####[facility] (BEAKER)[address] [place] [address] Lymphocytes/100 WBC (Bld) 20.7 % Normal 20.0-45.0 [facility] Comment on above: Performed By: #### L [id number] ####[facility] (BEAKER)[address] [place] [address] MCH (RBC) [Entitic mass] 30.2 pg Normal 27.0-33.0 [facility] Comment on above: Performed By: #### L [id number] ####[facility] ([facility])[address] [place] [address] MCV (RBC) [Entitic vol] 93.0 fL Normal 82.0-98.0 [facility] Comment on above: Performed By: #### L [id number] ####[facility] ([facility])[address] [place] [address] Monocytes (Bld) [#/Vol] 0.90 10*3/uL Normal 0.10-1.00 [facility] Comment on above: Performed By: #### L [id number] ####[facility] ([facility])[address] [place] [address] Monocytes/100 WBC (Bld) 8.7 % Normal 5.0-12.0 [facility] Comment on above: Performed By: #### L [id number] ####[facility] ([facility])[address] [place] [address] Neutrophils (Bld) [#/Vol] 7.25 10*3/uL Normal 1.60-7.60 [facility] Comment on above: Performed By: #### L [id number] ####[facility] ([facility])[address] [place] [address] Neutrophils/100 WBC (Bld) 69.7 % Normal 40.0-72.0 [facility] Comment on above: Performed By: #### L [id number] ####[facility] ([facility])[address] [place] [address] NRBC (PER 100 WBCS) BY AUTOMATED COUNT 0.0 % Normal 0 [facility] Comment on above: Performed By: #### L [id number] ####[facility] (BEAKER)[address] [place] [address] PLATELETS (10*3/UL) IN BLOOD AUTOMATED COUNT 333 10*3/uL Normal 150-400 [facility] Comment on above: Performed By: #### L [id number] ####[facility] ([facility])[address] [place] [address] RBC (Bld) [#/Vol] 4.44 10*6/uL Normal 3.80-5.00 [facility] Comment on above: Performed By: #### L [id number] ####[facility] ([facility])[address] [place] [address] WBC (Bld) [#/Vol] 10.39 10*3/uL Normal 4.00-10.60 [facility] Comment on above: Performed By: #### L [id number] ####[facility] ([facility])[address] [place] [address] COMPREHENSIVE METABOLIC PANE [facility] 09-19-2024 Albumin [Mass/Vol] 4.0 g/dL Normal 3.5-5.7 [facility] Comment on above: Performed By: #### L [id number] ####[facility] ([facility])[address] [place] [address] ALP [Catalytic activity/Vol] 49 U/L Normal 34-104 [facility] Comment on above: Performed By: #### L [id number] ####[facility] ([facility])[address] [place] [address] ALT [Catalytic activity/Vol] 11 U/L Normal 7-52 [facility] Comment on above: Performed By: #### L [id number] ####[facility] ([facility])[address] [place] [address] Anion gap [Moles/Vol] 14 mmol/L Normal 7-20 [facility] Comment on above: Performed By: #### L [id number] ####[facility] (BEAKER)[address] [place] [address] AST [Catalytic activity/Vol] 18 U/L Normal 13-39 [facility] Comment on above: Performed By: #### L [id number] ####[facility] (BEAKER)[address] [place] [address] Bilirubin [Mass/Vol] 0.5 mg/dL Normal 0.3-1.0 [facility] Comment on above: Performed By: #### L [id number] ####[facility] ([facility])[address] [place] [address] Calcium [Mass/Vol] 9.4 mg/dL Normal 8.6-10.3 [facility] Comment on above: Performed By: #### L [id number] ####[facility] ([facility])[address] [place] [address] Chloride [Moles/Vol] 102 mmol/L Normal 98-107 [facility] Comment on above: Performed By: #### L [id number] ####[facility] ([facility])[address] [place] [address] CO2 [Moles/Vol] 25 mmol/L Normal 21-31 [facility] Comment on above: Performed By: #### L [id number] ####[facility] ([facility])[address] [place] [address] Creatinine [Mass/Vol] 0.79 mg/dL Normal 0.60-1.20 [facility] Comment on above: Performed By: #### L [id number] ####[facility] ([facility])[address] [place] [address] GLOMERULAR FILTRATION RATE ML/MIN/1.73 SQ M.PREDICTED 74.2 mL/min/1.73m*2 Normal >60.0 [facility] Comment on above: Result Comment: [facility]???s estimated glomerular filtration rate (eGFR) will no [...] of individuals. Performed By: #### L [id number] ####[facility] ([facility])[address] [place] [address] Glucose [Mass/Vol] 147 mg/dL High 70-100 [facility] Comment on above: Performed By: #### L [id number] ####[facility] ([facility])[address] [place] [address] Potassium [Moles/Vol] 4.0 mmol/L Normal 3.5-5.1 [facility] Comment on above: Performed By: #### L [id number] ####[facility] ([facility])[address] [place] [address] Protein [Mass/Vol] 6.5 g/dL Normal 6.0-8.3 [facility] Comment on above: Performed By: #### L [id number] ####[facility] ([facility])[address] [place] [address] Sodium [Moles/Vol] 137 mmol/L Normal 136-145 [facility] Comment on above: Performed By: #### L [id number] ####[facility] ([facility])[address] [place] [address] Urea nitrogen [Mass/Vol] 12 mg/dL Normal 7-25 [facility] Comment on above: Performed By: #### L [id number] ####[facility] ([facility])[address] [place] [address] UREA NITROGEN/CREATININE (MASS RATIO) IN SER/PLAS 15.2 Normal [facility] Comment on above: Performed By: #### L [id number] ####[facility] ([facility])[address] [place] [address] MAGNESIUMon 09-19-2024 Magnesium [Mass/Vol] 1.7 mg/dL Low 1.9-2.7 [facility] Comment on above: Performed By: #### L [id number] ####[facility] (BEAKER)[address] [place] [address] POCT GLUCOSE METER UNSOLICIT ED RESULTSon 09-19-2024 Glucose [Mass/Vol] 140 mg/dL High 70-105 [facility] Comment on above: Order Comment: Waive d Testing in the ED is performed under the ED CLIA certificate #[id number]. Result Comment: [email or web address] Performed By: #### L [id number] ####[facility] ([facility])[address] [place] [address] Glucose [Mass/Vol] 146 mg/dL High 70-105 [facility] Comment on above: Order Comment: Waive d Testing in the ED is performed under the ED CLIA certificate #[id number]. Result Comment: [email or web address] Performed By: #### L [id number] ####[facility] ([facility])[address] [place] [address] Glucose [Mass/Vol] 198 mg/dL High 70-105 [facility] Comment on above: Order Comment: Waive d Testing in the ED is performed under the ED CLIA certificate #[id number]. Result Comment: [email or web address] Performed By: #### L [id number] #### [facility] RESPIRATORY THERAPY [address] [place] [address] [facility] Glucose [Mass/Vol] 151 mg/dL High 70-105 [facility] Comment on above: Order Comment: Waive d Testing in the ED is performed under the ED CLIA certificate #[id number]. Result Comment: [email or web address] Performed By: #### L [id number] ####[facility] ([facility])[address] [place] [address] 30on 09-18-2024 30 The patient is Moderately Stable - Low risk of patient condition declining or worsening The patient's goals for the shift include comfort The clinical goals for the shift include comfort Normal [facility] 30 Daily Case Managemen t Update Multidisciplinary rounds have been completed. Barriers to Discharge: Patient is a transfer from [place] for c/o abd pain, AMS and CT [...] Click Score: 17 PT Recommendations: OT Recommendations: snf facility placement (vs return home with 24 [...] OT? Answer: Evaluate and treat 09/17/242216 Normal [facility] 30 The patient is Moderately Stable - [...] maintained or improved Outcome: Not Progressing Normal [facility] BASIC METABOLIC PANELon 12-1 Anion gap [Moles/Vol] 13 mmol/L Normal 7-20 [facility] Comment on above: Performed By: #### L [id number] #### [facility] RESPIRATORY THERAPY [address] [place] [address] [facility] Calcium [Mass/Vol] 9.0 mg/dL Normal 8.6-10.3 [facility] Comment on above: Performed By: #### L [id number] #### [facility] RESPIRATORY THERAPY [address] [place] [address] [facility] Chloride [Moles/Vol] 102 mmol/L Normal 98-107 [facility] Comment on above: Performed By: #### L [id number] #### [facility] RESPIRATORY THERAPY [address] [place] [address] [facility] CO2 [Moles/Vol] 27 mmol/L Normal 21-31 [facility] Comment on above: Performed By: #### L [id number] #### [facility] RESPIRATORY THERAPY [address] [place] [address] [facility] Creatinine [Mass/Vol] 0.72 mg/dL Normal 0.60-1.20 [facility] Comment on above: Performed By: #### L [id number] #### [facility] RESPIRATORY THERAPY [address] [place] [address] [facility] GLOMERULAR FILTRATION RATE ML/MIN/1.73 SQ M.PREDICTED 82.9 mL/min/1.73m*2 Normal >60.0 [facility] Comment on above: Result Comment: [facility]???s estimated glomerular filtration rate (eGFR) will no [...] individuals. Performed By: #### L [id number] #### [facility] RESPIRATORY THERAPY [address] [place] [address] [facility] Glucose [Mass/Vol] 112 mg/dL High 70-100 [facility] Comment on above: Performed By: #### L [id number] #### [facility] RESPIRATORY THERAPY [address] [place] [address] [facility] Potassium [Moles/Vol] 4.0 mmol/L Normal 3.5-5.1 [facility] Comment on above: Performed By: #### L [id number] #### [facility] RESPIRATORY THERAPY [address] [place] [address] [facility] Sodium [Moles/Vol] 138 mmol/L Normal 136-145 [facility] Comment on above: Performed By: #### L [id number] #### [facility] RESPIRATORY THERAPY [address] [place] [address] [facility] Urea nitrogen [Mass/Vol] 17 mg/dL Normal 7-25 [facility] Comment on above: Performed By: #### L [id number] #### [facility] RESPIRATORY THERAPY [address] [place] [address] [facility] UREA NITROGEN/CREATININE (MASS RATIO) IN SER/PLAS 23.6 Normal [facility] Comment on above: Performed By: #### L [id number] #### [facility] RESPIRATORY THERAPY [address] [place] [address] [facility] CBCon 09-18-2024 Erythrocyte distribution width (RBC) [Ratio] 13.2 % Normal 11.5-15.0 [facility] Comment on above: Performed By: #### L [id number] #### [facility] RESPIRATORY THERAPY [address] [place] [address] [facility] ERYTHROCYTE MEAN CORPUSCULAR HEMOGLOBIN CONCENTRATION (G/DL) BY AUTOMATED 31.5 g/dL Low 32.0-35.0 [facility] Comment on above: Performed By: #### L [id number] #### [facility] RESPIRATORY THERAPY [address] [place] [address] [facility] Hematocrit (Bld) [Volume fraction] 39.1 % Normal 36.0-48.0 [facility] Comment on above: Performed By: #### L [id number] #### [facility] RESPIRATORY THERAPY [address] [place] [address] [facility] Hemoglobin (Bld) [Mass/Vol] 12.3 g/dL Normal 12.0-15.0 [facility] Comment on above: Performed By: #### L [id number] #### [facility] RESPIRATORY THERAPY [address] [place] [address] [facility] MCH (RBC) [Entitic mass] 30.4 pg Normal 27.0-33.0 [facility] Comment on above: Performed By: #### L [id number] #### [facility] RESPIRATORY THERAPY [address] [place] [address] [facility] MCV (RBC) [Entitic vol] 96.8 fL Normal 82.0-98.0 [facility] Comment on above: Performed By: #### L [id number] #### [facility] RESPIRATORY THERAPY [address] [place] [address] [facility] PLATELETS (10*3/UL) IN BLOOD AUTOMATED COUNT 284 10*3/uL Normal 150-400 [facility] Comment on above: Performed By: #### L [id number] #### [facility] RESPIRATORY THERAPY [address] [place] [address] [facility] RBC (Bld) [#/Vol] 4.04 10*6/uL Normal 3.80-5.00 [facility] Comment on above: Performed By: #### L [id number] #### [facility] RESPIRATORY THERAPY [address] [place] [address] [facility] WBC (Bld) [#/Vol] 6.54 10*3/uL Normal 4.00-10.60 [facility] Comment on above: Performed By: #### L [id number] #### [facility] RESPIRATORY THERAPY [address] [place] [address] [facility] CONSULTon 12-11-2024 CONSULT -- Attestation signed by Anaya Khanna [...] lower back pain who was transferred from [facility] ER due to abdominal pain and the diagnosis of cholelithiasis with acute cholecystitis. History was taken from chart since the patient was a poor historian. The story of the patient goes back to 2 months ago when she has been complaining of abdominal pain, poor appetite and worsening her mental status. She was taken to [facility] ER for the evaluation of the abdominal [...] PRN ondanse (more content not included)... Normal [facility] 09-18-2024 -- Attestation signed by Anaya Khanna [...] lower back pain who was transferred from [facility] ER due to abdominal pain and the diagnosis of cholelithiasis with acute cholecystitis. History was taken from chart since the patient was a poor historian. The story of the patient goes back to 2 months ago when she has been complaining of abdominal pain, poor appetite and worsening her mental status. She was taken to [facility] ER for the evaluation of the abdominal [...] PRN ondanse (more content not included)... Normal [facility] MR BRAIN WO CONTRASTon 09-18 MR BRAIN [...] Otilio Wilson MD. 8 Invalid Interpretation Code [facility] POCT GLUCOSE METER UNSOLICIT ED RESULTSon 09-18-2024 Glucose [Mass/Vol] 154 mg/dL High 70-105 [facility] Comment on above: Order Comment: Waive d Testing in the ED is performed under the ED CLIA certificate #[id number]. Result Comment: [email or web address] Performed By: #### L [id number] ####[facility] (BEAKER)[address] [place] [address] Glucose [Mass/Vol] 211 mg/dL High 70-105 [facility] Comment on above: Order Comment: Waive d Testing in the ED is performed under the ED CLIA certificate #[id number]. Result Comment: [email or web address] ppe Performed By: #### L [id number] ####[facility] (BEAKER)[address] [place] [address] Glucose [Mass/Vol] 170 mg/dL High 70-105 [facility] Comment on above: Order Comment: Waive d Testing in the ED is performed under the ED CLIA certificate #[id number]. Result Comment: [email or web address] Performed By: #### L [id number] ####[facility] (BEAKER)[address] [place] [address] Glucose [Mass/Vol] 125 mg/dL High 70-105 [facility] Comment on above: Order Comment: Waive d Testing in the ED is performed under the ED CLIA certificate #[id number]. Result Comment: [email or web address] Performed By: #### L [id number] #### [facility] RESPIRATORY THERAPY [address] [place], [place] [address] T4, FREEon 09-18-2024 THYROXINE (T4) FREE (NG/DL) IN SER/PLAS 1.38 ng/dL Normal 0.71-1.85 [facility] Comment on above: Performed By: #### L [id number] #### [facility] RESPIRATORY THERAPY [address] [place], [place] [address] TSH3 REFLEX TO FT4on 024 THYROTROPIN (MIU/L) IN SER/PLAS BY DETECTION LIMIT <= 0.05 MIU/L 0.04 mIU/L Low 0.34-5.60 [facility] Comment on above: Performed By: #### L [id number] #### [facility] RESPIRATORY THERAPY [address] [place], [place] [address] CALCIUM, IONIZEDon CALCIUM IONIZED (MMOL/L) IN BLOOD 1.02 mmol/L Low 1.15-1.33 [facility] Comment on above: Performed By: #### L [id number] #### [facility] RESPIRATORY THERAPY [address] [place], [place] [address] CBC WITH AUTO DIFFERENTIALon 09-17-2024 Basophils (Bld) [#/Vol] 0.02 10*3/uL Normal 0.00-0.20 [facility] Comment on above: Performed By: #### L [id number] ####[facility] (BEAKER)[address] [place] [address] Basophils/100 WBC (Bld) 0.3 % Normal 0.0-1.0 [facility] Comment on above: Performed By: #### L [id number] ####[facility] (BEAKER)[address] [place] [address] Eosinophils (Bld) [#/Vol] 0.06 10*3/uL Normal 0.00-0.50 [facility] Comment on above: Performed By: #### L [id number] ####[facility] [place] [address] Eosinophils/100 WBC (Bld) 0.8 % Normal 0.0-6.0 [facility] Comment on above: Performed By: #### L [id number] ####[facility] [facility] [place] [address] Erythrocyte distribution width (RBC) [Ratio] 13.1 % Normal 11.5-15.0 [facility] Comment on above: Performed By: #### L [id number] ####[facility] ([facility] [place] [address] ERYTHROCYTE MEAN CORPUSCULAR HEMOGLOBIN CONCENTRATION (G/DL) BY AUTOMATED 33.1 g/dL Normal 32.0-35.0 [facility] Comment on above: Performed By: #### L [id number] ####[facility] ([facility] [place] [address] Hematocrit (Bld) [Volume fraction] 39.0 % Normal 36.0-48.0 [facility] Comment on above: Performed By: #### L [id number] ####[facility] ([facility] [place] [address] Hemoglobin (Bld) [Mass/Vol] 12.9 g/dL Normal 12.0-15.0 [facility] Comment on above: Performed By: #### L [id number] ####[facility] (BEAKER)[address] [place] [address] Immature granulocytes (Bld) [#/Vol] 0.01 10*3/uL Normal 0.00-0.20 [facility] Comment on above: Performed By: #### L [id number] ####[facility] ([facility])[address] [facility] [place] [address] Immature granulocytes/100 WBC (Bld) 0.1 % Normal 0.0-1.0 [facility] Comment on above: Performed By: #### L [id number] ####[facility] ([facility])[address] [place] [address] Lymphocytes (Bld) [#/Vol] 2.03 10*3/uL Normal 1.20-4.00 [facility] Comment on above: Performed By: #### L [id number] ####[facility] ([facility])[address] [place] [address] Lymphocytes/100 WBC (Bld) 28.6 % Normal 20.0-45.0 [facility] Comment on above: Performed By: #### L [id number] ####[facility] ([facility])[address] [place] [address] MCH (RBC) [Entitic mass] 30.2 pg Normal 27.0-33.0 [facility] Comment on above: Performed By: #### L [id number] ####[facility] ([facility])[address] [place] [address] MCV (RBC) [Entitic vol] 91.3 fL Normal 82.0-98.0 [facility] Comment on above: Performed By: #### L [id number] ####[facility] ([facility])[address] [place] [address] Monocytes (Bld) [#/Vol] 0.67 10*3/uL Normal 0.10-1.00 [facility] Comment on above: Performed By: #### L [id number] ####[facility] ([facility] [place] [address] Monocytes/100 WBC (Bld) 9.4 % Normal 5.0-12.0 [facility] Comment on above: Performed By: #### L [id number] ####[facility] ([facility] [place] [address] Neutrophils (Bld) [#/Vol] 4.31 10*3/uL Normal 1.60-7.60 [facility] Comment on above: Performed By: #### L [id number] ####[facility] ([facility])[address] [place] [address] Neutrophils/100 WBC (Bld) 60.8 % Normal 40.0-72.0 [facility] Comment on above: Performed By: #### L [id number] ####[facility] ([facility])[address] [place] [address] NRBC (PER 100 WBCS) BY AUTOMATED COUNT 0.0 % Normal 0 [facility] Comment on above: Performed By: #### L [id number] ####[facility] ([facility])[address] [place] [address] PLATELETS (10*3/UL) IN BLOOD AUTOMATED COUNT 301 10*3/uL Normal 150-400 [facility] Comment on above: Performed By: #### L [id number] ####[facility] ([facility])[address] [place], [place] [address] RBC (Bld) [#/Vol] 4.27 10*6/uL Normal 3.80-5.00 [facility] Comment on above: Performed By: #### L [id number] ####[facility] ([facility])[address] [place] [address] WBC (Bld) [#/Vol] 7.10 10*3/uL Normal 4.00-10.60 [facility] Comment on above: Performed By: #### L [id number] ####[facility] ([facility] [place] [address] COMPREHENSIVE METABOLIC PANE Sadiq 09-17-2024 Albumin [Mass/Vol] 3.9 g/dL Normal 3.5-5.7 [facility] Comment on above: Performed By: #### L [id number] #### [facility] ([facility]) [address] [place] [address] ALP [Catalytic activity/Vol] 43 U/L Normal 34-104 [facility] Comment on above: Performed By: #### L [id number] #### [facility] ([facility]) [address] [place] [address] ALT [Catalytic activity/Vol] 11 U/L Normal 7-52 [facility] Comment on above: Performed By: #### L [id number] #### [facility] ([facility]) [address] [place] [address] Anion gap [Moles/Vol] 14 mmol/L Normal 7-20 [facility] Comment on above: Performed By: #### L [id number] #### [facility] ([facility]) [address] [place] [address] AST [Catalytic activity/Vol] 15 U/L Normal 13-39 [facility] Comment on above: Performed By: #### L [id number] #### [facility] ([facility]) [address] [place] [address] Bilirubin [Mass/Vol] 0.5 mg/dL Normal 0.3-1.0 [facility] Comment on above: Performed By: #### L [id number] #### [facility] ([facility]) [address] [place] [address] Calcium [Mass/Vol] 9.2 mg/dL Normal 8.6-10.3 [facility] Comment on above: Performed By: #### L [id number] #### [facility] ([facility] [address] [place] [address] Chloride [Moles/Vol] 102 mmol/L Normal 98-107 [facility] Comment on above: Performed By: #### L [id number] #### [facility] ([facility]) [address] [place] [address] CO2 [Moles/Vol] 24 mmol/L Normal 21-31 [facility] Comment on above: Performed By: #### L [id number] #### [facility] ([facility]) [address] [place] [address] Creatinine [Mass/Vol] 0.68 mg/dL Normal 0.60-1.20 [facility] Comment on above: Performed By: #### L [id number] #### [facility] ([facility]) [address] [place] [address] GLOMERULAR FILTRATION RATE ML/MIN/1.73 SQ M.PREDICTED 86.4 mL/min/1.73m*2 Normal >60.0 [facility] Comment on above: Result Comment: [facility]???s estimated glomerular filtration rate (eGFR) will no [...] individuals. Performed By: #### L [id number] #### [facility] ([facility]) [address] [place] [address] Glucose [Mass/Vol] 128 mg/dL High 70-100 [facility] Comment on above: Performed By: #### L [id number] #### [facility] ([facility]) [address] [place] [address] Potassium [Moles/Vol] 4.2 mmol/L Normal 3.5-5.1 [facility] Comment on above: Performed By: #### L [id number] #### [facility] ([facility]) [address] [place] [address] Protein [Mass/Vol] 6.7 g/dL Normal 6.0-8.3 [facility] Comment on above: Performed By: #### L [id number] #### [facility] ([facility]) [address] [place] [address] Sodium [Moles/Vol] 136 mmol/L Normal 136-145 [facility] Comment on above: Performed By: #### L [id number] #### [facility] ([facility]) [address] [place] [address] Urea nitrogen [Mass/Vol] 16 mg/dL Normal 7-25 [facility] Comment on above: Performed By: #### L [id number] #### [facility] ([facility]ER) [address] [place] [address] UREA NITROGEN/CREATININE (MASS RATIO) IN SER/PLAS 23.5 Normal [facility] Comment on above: Performed By: #### L [id number] #### [facility] ([facility]ER) [address] [place] [address] CONSULTon 09-17-2024 CONSULT Reason For Consult Abdominal pain Referring Provider: [facility] ER History Of Present Illness Saeed Sarabia is a 83 y.o. female presenting with Abdominal Pain; Altered Mental Status. Patient is not at baseline mental status per and daughter at bedside, states she has had AMS for at least 1 day with recent history of UTI for which she just completed antibiotics for. Patient was transferred from [facility], where she had CT scan of abdomen [...] was also given Rocephin and Flagyll at [facility] during her ER visit today, prior to transfer. Past Medical History She has a past medical history of Atrial fibrillation (CMS/HCC), CHF (congestive heart failure) (CMS/[facility]), Coronary artery disease, Diabetes mellitus ([facility]), Heart valve disease, Hyperlipidemia, and Hypertension. Surgical [...] Temp src Pulse Resp SpO2 Height Weight 09/17/241924 160/76 36.8 ???C (98.3 ???F) Oral 90 [...] (H) 7 (more content not included)... 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 Per facility report, [facility] did not have a surgery bed available, so pt will be getting surgery at [facility]. Pt was diagnosed with cholelithiasis [...] pain. Pt denies SOB and CP. Normal [facility] EDPROVon 09-17-2024 EDPROV History of Present Illness Chief Complaint Patient presents with Abdominal Pain Transferred from [facility]; will be getting surgery at [facility] Altered Mental Status Initial evaluation completed by Dr. Vasquez at 7:20 PM. Saeed Sarabia is a 83 y.o. female presenting to the ED with c/o Abdominal Pain, Altered Mental Status. Patient reports via EMS and is a transfer from [facility]. Patient reports that she has gallstones and [...] currently on Eliquis. 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 Risk Decision regarding hospitalization. Seth Man, documented on behalf of Dr. Vasquez. Chief complaint Abdominal Pain, Altered Mental Status Plan of Care: UA, CBC, Troponin, Lipase, CMP Attestation: Provider Statement BLAYNE: Provider Statement 2nd Scribe. By electronically signing this emergency patient record, the Emergency Physician/CURING PICKLING PACKER/PA-C attests that all entries made into the electronic medical record by the scribe prior to the Physician/CURING PICKLING PACKER/PA-C signature reflect an accurate accounting of the evaluation and care rendered by that Emergency Physician/CURING PICKLING PACKER/PA-C. The Emergency Physician/CURING PICKLING PACKER/PA-C assumes full responsibility for those entries. The Emergency Physician/CURING PICKLING PACKER/PA-C also attests that any patient testing or treatment that was instituted by nursing staff. Sanjeev Vasquez MD 09/17/24 2130 Normal [facility] LIPASEon 09-17-2024 LIPASE (U/L) IN SER/PLAS 27 U/L Normal 11-82 [facility] Comment on above: Performed By: #### L [id number] ####[facility] ([facility])[address] [place] [address] MAGNESIUMon 09-17-2024 Magnesium [Mass/Vol] 1.5 mg/dL Low 1.9-2.7 [facility] Comment on above: Performed By: #### L [id number] ####[facility] ([facility])[address] [place] [address] NM HIDA WO EJECTION FRACTION on 09-17-2024 [...] acute cholecystitis. Electronically signed: Felicita Leal. Normal [facility] PHOSPHORUSon 09-17-2024 Magnesium [Mass/Vol] 3.3 mg/dL Normal 2.5-5.0 [facility] Comment on above: Performed By: #### L [id number] ####[facility] ([facility])[address] [place] [address] POCT GLUCOSE METER UNSOLICIT ED RESULTSon 09-17-2024 Glucose [Mass/Vol] 129 mg/dL High 70-105 [facility] Comment on above: Order Comment: Waive d Testing in the ED is performed under the ED CLIA certificate #[id number]. Result Comment: tloy d Performed By: #### L [id number] #### [facility] RESPIRATORY THERAPY [address] [place] [address] [place] TROPONIN Ion 09-17-2024 Troponin I.cardiac [Mass/Vol] 0.01 ng/mL Normal 0.00-0.04 [facility] Comment on above: Performed By: #### L [id number] #### [facility] ([facility]) [address] [place] [address] URINALYSIS MICROSCOPIC WITH REFLEX CULTUREon 09-17-2024 MUCUS (#/LPF) IN URINE SEDIMENT Occasional Normal None Seen, Occasional, Few [facility] Comment on above: Performed By: #### L [id number] ####[facility] ([facility])[address] [place] [address] RBC (#/HPF) IN URINE SEDIMENT 0-2 Normal None Seen, 0-2 [facility] Comment on above: Performed By: #### L [id number] ####[facility] ([facility])[address] [place] [address] SQUAMOUS EPITHELIAL CELLS (#/LPF) IN URINE SEDIMENT Few Normal None Seen, Occasional, Few [facility] Comment on above: Performed By: #### L [id number] ####[facility] ([facility])[address] [place] [address] WBC (LEUKOCYTE) (#/HPF) IN URINE SEDIMENT 3-5 Abnormal None Seen, 0-2 [facility] Comment on above: Performed By: #### L [id number] ####[facility] ([facility])[address] [place] [address] URINALYSIS WITH REFLEX CULTU REon 09-17-2024 BILIRUBIN, TOTAL PRESENCE IN URINE Negative Normal Negative [facility] Comment on above: Performed By: #### L [id number] #### [facility] ([facility]) [address] [place] [address] Clarity (U) Clear Normal Clear [facility] Comment on above: Performed By: #### L [id number] #### [facility] ([facility]) [address] [place] [address] Color (U) Colorless Normal Colorless, Yellow, Light-Yello w [facility] Comment on above: Performed By: #### L [id number] #### [facility] ([facility]) [address] [place] [address] GLUCOSE (MG/DL) IN URINE Normal Normal Normal [facility] Comment on above: Performed By: #### L [id number] #### [facility] ([facility]) [address] [place] [address] HEMOGLOBIN PRESENCE IN URINE Trace Abnormal Negative [facility] Comment on above: Performed By: #### L [id number] #### [facility] ([facility]) [address] [place] [address] Ketones Ql (U) Trace Abnormal Negative [facility] Comment on above: Performed By: #### L [id number] #### [facility] ([facility]) [address] [place] [address] LEUKOCYTE ESTERASE PRESENCE IN URINE BY TEST STRIP Negative Normal Negative [facility] Comment on above: Performed By: #### L [id number] #### [facility] ([facility]) [address] [place] [address] NITRITE PRESENCE IN URINE Negative Normal Negative [facility] Comment on above: Performed By: #### L [id number] #### [facility] ([facility]) [address] [place] [address] pH (U) 5.0 [pH] Normal 5.0-8.0 [facility] Comment on above: Performed By: #### L [id number] #### [facility] ([facility]) [address] [place] [address] Protein (U) [Mass/Vol] Negative Normal Negative [facility] Comment on above: Performed By: #### L [id number] #### [facility] ([facility]) [address] [place] [address] Specific gravity (U) [Rel density] 1.026 Normal 1.010-1.030 [facility] Comment on above: Performed By: #### L [id number] #### [facility] [address] [place] [address] UROBILINOGEN (MG/DL) IN URINE Normal Normal Normal [facility] Comment on above: Performed By: #### L [id number] #### [facility] ([facility]ER) [address] [place] [address] VENOUS BLOOD GAS WITH IONIZE D CALCIUMon 09-17-2024 Base excess Calc (BldV) [Moles/Vol] -4.9000 mmol/L Normal [facility] Comment on above: Performed By: #### L [id number] #### [facility] RESPIRATORY THERAPY [address] [place] [address] [facility] CALCIUM IONIZED (MMOL/L) IN BLOOD 1.04 mmol/L Low 1.15-1.33 [facility] Comment on above: Performed By: #### L [id number] #### [facility] RESPIRATORY THERAPY [address] [place] [address] [facility] CO2 (BldV) [Partial pressure] 26 mm[Hg] Low 40-50 [facility] Comment on above: Performed By: #### L [id number] #### [facility] RESPIRATORY THERAPY [address] [place] [address] [facility] HCO3 (Bld) [Moles/Vol] 17.7 mmol/L Normal [facility] Comment on above: Performed By: #### L [id number] #### [facility] RESPIRATORY THERAPY [address] [place] [address] [facility] Oxygen (BldV) [Partial pressure] 147 mm[Hg] High 35-45 [facility] Comment on above: Performed By: #### L [id number] #### [facility] RESPIRATORY THERAPY [address] [place] [address] [facility] OXYGEN SATURATION (%) IN VENOUS BLOOD 99.8 % High 65.0-75.0 [facility] Comment on above: Performed By: #### L [id number] #### [facility] RESPIRATORY THERAPY [address] [place] [address] [facility] PH OF VENOUS BLOOD 7.44 High 7.31-7.41 [facility] Comment on above: Performed By: #### L [id number] #### [facility] RESPIRATORY THERAPY [address] [place] [address] [facility] ALL BASIC METABOLIC PANELon 11-21-2024 Anion gap [Moles/Vol] 15.8 mmol/L NO [facility] Calcium [Mass/Vol] 9.8 mg/dL 8.5 - 10. 1 mg/dL [facility] Chloride [Moles/Vol] 103 mmol/L 98 - 10 7 mmol/L [facility] CO2 [Moles/Vol] 26.4 mmol/L 21.0 - 32.0 mmol/L [facility] Creatinine [Mass/Vol] 1.07 mg/dL High 0.55 - 1.02 mg/dL [facility] GFR/1.73 sq M.predicted CKD-EPI (S/P/Bld) [Vol rate/Area] 59 Low >=60 mL/min/1.73 m 2 [facility] Glucose [Mass/Vol] 266 mg/dL High 74 - 106 mg/dL [facility] Interpretation and review of laboratory results Abnormal [facility] Potassium [Moles/Vol] 4.2 mmol/L 3.5 - 5.1 mmol/L [facility] Sodium [Moles/Vol] 141 mmol/L 136 - 145 mmol/L [facility] TBH EGFR-NON AF [place] 49 Low >=6 0 mL/min/1.73 m 2 [facility] Urea nitrogen [Mass/Vol] 21 mg/dL High 7.0 - 18.0 mg/dL [facility] Urea nitrogen/Creatinine [Mass ratio] 19.6 mg/mg [facility] ALL BASIC METABOLIC PANELon 08-20-2024 Anion gap [Moles/Vol] 15.7 mmol/L NO [facility] Calcium [Mass/Vol] 9.5 mg/dL 8.5 - 10. 1 mg/dL [facility] Chloride [Moles/Vol] 108 mmol/L High 98 - 10 7 mmol/L [facility] CO2 [Moles/Vol] 27.8 mmol/L 21.0 - 32.0 mmol/L [facility] Creatinine [Mass/Vol] 0.85 mg/dL 0.55 - 1.02 mg/dL [facility] GFR/1.73 sq M.predicted CKD-EPI (S/P/Bld) [Vol rate/Area] >60 >=60 mL/min/1.73 m 2 [facility] Glucose [Mass/Vol] 118 mg/dL High 74 - 106 mg/dL [facility] Interpretation and review of laboratory results Abnormal [facility] Potassium [Moles/Vol] 4.5 mmol/L 3.5 - 5.1 mmol/L [facility] Sodium [Moles/Vol] 147 mmol/L High 136 - 145 mmol/L [facility] TBH EGFR-NON AF [place] >60 >=6 0 mL/min/1.73 m 2 [facility] Urea nitrogen [Mass/Vol] 14 mg/dL 7.0 - 18.0 mg/dL [facility] Urea nitrogen/Creatinine [Mass ratio] 16.5 mg/mg [facility] ALL CBC WITH AUTO DIFFon BASOPHILS ABSOLUTE AUTO 0 [facility] Basophils/100 WBC (Bld) 0.3 % 0.2 - 2.0 % [facility] Eosinophils/100 WBC (Bld) 0.7 % Low 0.9 - 7.0 % [facility] Erythrocyte distribution width (RBC) [Ratio] 13.6 % 11.0 - 15.0 % [facility] Hematocrit (Bld) [Volume fraction] 40 % 36.0 - 48.0 % [facility] Hemoglobin (Bld) [Mass/Vol] 12.5 g/dL 12.0 - 16.0 g/dL [facility] IMMATURE GRANULOCYTES ABS AUTO 0.01 [facility] Immature granulocytes/100 WBC (Bld) 0.1 % 0.0 - 0.5 % [facility] Interpretation and review of laboratory results Abnormal [facility] LYMPHOCYTES ABSOLUTE AUTO 2.1 [facility] Lymphocytes/100 WBC (Bld) 31.5 % 20.5 - 60.0 % [facility] MCH (RBC) [Entitic mass] 30 pg 26. 7 - 34.0 pg [facility] MCHC (RBC) [Mass/Vol] 31.3 g/dL 29.9 - 35.2 g/dL [facility] MCV (RBC) [Entitic vol] 95.9 fL 81.0 - 99.0 fL [facility] MONOCYTES ABSOLUTE AUTO 0.6 [facility] Monocytes/100 WBC (Bld) 8.5 % 1.7 - 12.0 % [facility] NEUTROPHILS ABSOLUTE AUTO 3.9 [facility] Neutrophils/100 WBC (Bld) 58.9 % 43.0 - 75.0 % [facility] Platelet mean volume (Bld) [Entitic vol] 9.9 fL 9.5 - 13.5 fL [facility] EO # 0.1 [facility] PLT 263 [facility] RBC 4.17 Low [facility] WBC 6.7 [facility] HbA1c (Bld) [Mass fraction]o n 08-20-2024 Interpretation and review of laboratory results Normal [facility] - Hematology and Cell countson 08-20-2024 HbA1c (Bld) [Mass fraction] 6/1% [facility] 36on 02-19-2024 36 Regarding echo from 02/15/2024: MD Cara Bansal MA Her echo is within normal limits. Patient informed. Normal [facility] Office Visiton 02-02-2024 Follow-up visit [id number] Saeed Sarabia 1940 F Date Provider Department Center 02/02/2024 [id number]-[id number] [facility] [facility] Family History Problem Relation Age of Onset Heart attack Mother Coronary artery disease Mother Heart attack Father Coronary artery disease Father Multiple sclerosis Sister Family Status - Relation Status Age at Mother Father Sister Level of Service:96181 MD OFFICE/OUTPATIENT ESTABLISHED MOD MDM 30 MIN Reason for Visit and Comments: Follow-up [654865] - 6 months Normal [facility] FREE T3on 08-15-2022 FREE T3 2.11 pg/mlL Critically low 2.18-3.[address] [facility] Comment on above: Performed By: #### F T3, TSH, CMP, LIPID ####[facility] [address] [place], [place] [address]BkDr. Adilene Koo FREE T4on 08-15-2022 Free T4 [Mass/Vol] 1.13 ng/dL Normal 0.76-1.46 [facility] Comment on above: Performed By: #### F T4 #### [facility] [address] [place], [place] [address] Dr. Adilene Koo GLYCOHEMOGLOBIN A1Con 2021 ADA RECOMMENDATION SEE BELOW Normal [facility] Comment on above: Result Comment: ADA RECOMMENDED LIMIT 4.0 - 6.0 ADA THERAPEUTIC TARGET < 7.0 ACTION SUGGESTED > 7.0 Performed By: #### A 1C #### [facility] [address] [place], [place] [address] Dr. Adilene Koo Glucose [Mass/Vol] 137 mg/dL Normal [facility] Comment on above: Performed By: #### A 1C #### [facility] [address] [place] [id number] Adilene Koo HbA1c (Bld) [Mass fraction] 6.4 % Critically high 4.5-6.2 [facility] Comment on above: Performed By: #### A 1C #### [facility] [address] [place] [address] [address] Adilene Koo LIPID PROFILEon 08-15-2022 CHOL-HDL RATIO NORM SEE BELOW Normal [facility] Comment on above: Result Comment: 3.3 - 4.4 LOW RISK 4.4 - 7.1 AVERAGE RISK 7.1 - 11.0 MODERATE RISK >11.0 HIGH RISK Performed By: #### F T3, TSH, CMP, LIPID ####[facility] [address] [place] [id number]. Adilene Koo Cholesterol [Mass/Vol] 127 mg/dL Normal <=200 [facility] Comment on above: Performed By: #### F T3, TSH, CMP, LIPID ####[facility] [address] [place] [id number] Koo Cholesterol in HDL [Mass/Vol] 48 mg/dL Normal 40-60 [facility] Comment on above: Performed By: #### F T3, TSH, CMP, LIPID ####[facility] [address] [place] [id number]. Adilene Koo Cholesterol in LDL [Mass/Vol] 60.2 mg/dL Normal [facility] Comment on above: Performed By: #### F T3, TSH, CMP, LIPID ####[facility] [address] [place] [id number]. Adilene Koo Cholesterol.total/Choles terol in HDL [Mass ratio] 2.6 {ratio} Normal [facility] Comment on above: Performed By: #### F T3, TSH, CMP, LIPID ####[facility] [address] [place] [id number]. Adilene Koo HDL NORMAL > or = 60 mg/dl - LO W CARDIOVASCULAR RISK <40 mg/dl - HIGH CARDIOVASCULAR RISK Normal [facility] Comment on above: Performed By: #### F T3, TSH, CMP, LIPID ####[facility] [address] [place] [id number]. Adilene Koo LDL CALC NORMAL SEE BELOW Normal [facility] Comment on above: Result Comment: <100 mg/dl OPTIMAL 100 - 129 mg/dl NEAR OR ABOVE OPTIMAL 130 - 159 mg/dl BORDERLINE HIGH 160 - 189 mg/dl HIGH >190 mg/dl VERY HIGH Performed By: #### F T3, TSH, CMP, LIPID ####[facility] [address] [place] [address]DrKen Koo Triglyceride [Mass/Vol] 94 mg/dL Normal <=150 [facility] Comment on above: Performed By: #### F T3, TSH, CMP, LIPID ####[facility] [address] [place] [address]Dr. Adilene Koo VLDL CALC 18.8 mg/dL Normal [facility] Comment on above: Performed By: #### F T3, TSH, CMP, LIPID ####[facility] [address] [place] [address]DrKen Koo MICROALBUMIN, RAND URon 11-0 mALB 1.6 mg/L Normal <=30.0 [facility] Comment on above: Performed By: #### M ALBR #### [facility] [address] [place] [address] [address] Adilene Koo PROF 14(COMP METB)on 022 Albumin [Mass/Vol] 3.2 g/dL Critically low 3.4-5.0 [facility] Comment on above: Performed By: #### F T3, TSH, CMP, LIPID ####[facility] [address] [place] [address]Dr. Adilene Koo Albumin/Globulin [Mass ratio] 0.9 {ratio} Normal [facility] Comment on above: Performed By: #### F T3, TSH, CMP, LIPID ####[facility] [address] [place] [address]Dr. Adilene Koo ALP [Catalytic activity/Vol] 59 U/L Normal 46-116 [facility] Comment on above: Performed By: #### F T3, TSH, CMP, LIPID ####[facility] [address] [place] [address]Dr. Adilene Koo ALT [Catalytic activity/Vol] 19 U/L Normal 14-59 [facility] Comment on above: Performed By: #### F T3, TSH, CMP, LIPID ####[facility] [address] [place] [address]Dr. Adilene Koo Anion gap [Moles/Vol] 10.8 mmol/L Normal [facility] Comment on above: Performed By: #### F T3, TSH, CMP, LIPID ####[facility] [address] [place] [address]Dr. Adilene Koo AST [Catalytic activity/Vol] 18 U/L Normal 15-37 [facility] Comment on above: Performed By: #### F T3, TSH, CMP, LIPID ####[facility] [address] [place], [place] [address]Dr. Adilene Koo Bilirubin [Mass/Vol] 0.4 mg/dL Normal 0.2-1.0 [facility] Comment on above: Performed By: #### F T3, TSH, CMP, LIPID ####[facility] [address] [place] [address]Dr. Adilene Koo Calcium [Mass/Vol] 9.4 mg/dL Normal 8.5-10.1 [facility] Comment on above: Performed By: #### F T3, TSH, CMP, LIPID ####[facility] [address] [place], [place] [address]Dr. Adilene Koo Chloride [Moles/Vol] 106 mmol/L Normal 98-107 [facility] Comment on above: Performed By: #### F T3, TSH, CMP, LIPID ####[facility] [address] [place] [address]Dr. Adilene Koo CO2 [Moles/Vol] 28.9 mmol/L Normal 21.0-32.[address] [facility] Comment on above: Performed By: #### F T3, TSH, CMP, LIPID ####[facility] [address] [place] [address]Dr. Adilene Koo Creatinine [Mass/Vol] 0.73 mg/dL Normal 0.55-1.02 [facility] Comment on above: Performed By: #### F T3, TSH, CMP, LIPID ####[facility] [address] [place] [address]Dr. Adilene Koo EGFR-AF [place]OU[place]ORE[place] >60 Normal >=[address] [facility] Comment on above: Performed By: #### F T3, TSH, CMP, LIPID ####[facility] [address] [place] [address]Dr. Adilene Koo EGFR-NON AF [place]ORE[place] >60 Normal >=60 [facility] Comment on above: Performed By: #### F T3, TSH, CMP, LIPID ####[facility] [address] [place] [address]Dr. Adilene Koo Globulin (S) [Mass/Vol] 3.6 g/dL Normal [facility] Comment on above: Performed By: #### F T3, TSH, CMP, LIPID ####[facility] [address] [place] [address]Dr. Adilene Koo Glucose [Mass/Vol] 94 mg/dL Normal 74-106 [facility] Comment on above: Performed By: #### F T3, TSH, CMP, LIPID ####[facility] [address] [place] [address]Dr. Adilene Koo Potassium [Moles/Vol] 4.7 mmol/L Normal 3.5-5.1 [facility] Comment on above: Performed By: #### F T3, TSH, CMP, LIPID ####[facility] [address] [place] [address]Dr. Adilene Koo Protein [Mass/Vol] 6.8 g/dL Normal 6.4-8.2 [facility] Comment on above: Performed By: #### F T3, TSH, CMP, LIPID ####[facility] [address] [place] [id number]. Adilene Koo Sodium [Moles/Vol] 141 mmol/L Normal 136-145 [facility] Comment on above: Performed By: #### F T3, TSH, CMP, LIPID ####[facility] [address] [place] [address]Dr. Adilene Koo Urea nitrogen [Mass/Vol] 15.0 mg/dL Normal 7.0-18.0 [facility] Comment on above: Performed By: #### F T3, TSH, CMP, LIPID ####[facility] [address] [place] [address]Dr. Adilene Koo Urea nitrogen/Creatinine [Mass ratio] 20.5 mg/mg Normal [facility] Comment on above: Performed By: #### F T3, TSH, CMP, LIPID ####[facility] [address] [place] [address]Dr. Adilene Koo TSHon 08-15-2022 TSH 0.219 uIU/mL Critically low 0.358-3.[address] [facility] Comment on above: Performed By: #### F T3, TSH, CMP, LIPID ####[facility] [address] [place] [address]Dr. Adilene Koo UA RANDOM W/MICROSCOPICon BACTERIA NONE SEEN Normal NONE SEEN [facility] Comment on above: Performed By: #### U AMIC #### [facility] [address] [place] [address] [address] Adilene Koo Bilirubin Ql (U) Negative Normal NEGATIVE [facility] Comment on above: Performed By: #### U AMIC #### [facility] [address] [place] [address] [address] Adilene Koo CAST NONE SEEN Normal NONE SEEN [facility] Comment on above: Performed By: #### U AMIC #### [facility] [address] [place] [address] [address] Adilene Koo Clarity (U) CLEAR Normal CLEAR [facility] Comment on above: Performed By: #### U AMIC #### [facility] [address] [place] [address] [address] Adilene Koo Color (U) LT. YELLOW Normal YELLOW [facility] Comment on above: Performed By: #### U AMIC #### [facility] [address] [place] [address] [address] Adilene Koo Crystals LM Nom (Urine sed) NONE SEEN Normal NONE SEEN [facility] Comment on above: Performed By: #### U AMIC #### [facility] [address] [place] [address] [address] Adilene Koo Epithelial cells LM Ql (Urine sed) RARE Normal NONE SEEN /RARE [facility] Comment on above: Performed By: #### U AMIC #### [facility] [address] [place] [address] [address] Adilene Koo Glucose Ql (U) Negative Normal NEGATIVE [facility] Comment on above: Performed By: #### U AMIC #### [facility] [address] [place] [address] [address] Adilene Koo Hemoglobin Ql (U) Negative Normal NEGATIVE [facility] Comment on above: Performed By: #### U AMIC #### [facility] [address] [place] [address] [address] Adilene Koo Ketones Ql (U) Negative Normal NEGATIVE [facility] Comment on above: Performed By: #### U AMIC #### [facility] [address] [place] [address] [address] Adilene Koo LEUKOCYTES Negative Normal NEGATIVE [facility] Comment on above: Performed By: #### U AMIC #### [facility] [address] [place] [address] [address] Adilene Koo MUCOUS NONE SEEN Normal NONE SEEN [facility] Comment on above: Performed By: #### U AMIC #### [facility] [address] [place] [address] [address] Adilene Koo Nitrite Ql (U) Negative Normal NEGATIVE [facility] Comment on above: Performed By: #### U AMIC #### [facility] [address] [place] [address] [address] Adilene Koo pH (U) 6.0 [pH] Normal 5-9 [facility] Comment on above: Performed By: #### U AMIC #### [facility] [address] [place] [address] [address] Adilene Koo RBC 0-2 Normal 0-2 [facility] Comment on above: Performed By: #### U AMIC #### [facility] [address] [place] [address] [address] Adilene Koo SPEC GRAVITY 1.020 Normal 1.005-<=1.0 25 [facility] Comment on above: Performed By: #### U AMIC #### [facility] [address] [place] [address] [address] Adilene Koo UA PROTEIN Negative Normal NEGATIVE/ TRACE [facility] Comment on above: Performed By: #### U AMIC #### [facility] [address] [place] [address] [address] Adilene oKo Urobilinogen Qn (U) 0.2 {Juan'U}/dL Normal 0.2 - 1. 0 [facility] Comment on above: Performed By: #### U AMIC #### [facility] [address] [place] [address] [address] Adilene Koo WBC 0-2 Abnormal NONE SEEN [facility] Comment on above: Performed By: #### U AMIC #### [facility] [address] [place] [id number] Adilene Koo Glucose Glucometer ([facility]) [M ass/Vol]Ordered By: [place] Gao on 04-15-2022 Glucose [Mass/Vol] 112 mg/dL [facility] Comment on above: Random Glucose Refer ence Range is dependent on time and content of last meal. Glucose of more than 200 mg/dL in a nonstressed, ambulatory subject supports the diagnosis of Diabetes Mellitus. Glucose Poct Glucometerson 0 04-15-2022 Commemt1 Glu2: Cleaned Meter Normal [facility] Comment on above: Result Comment: PERF ORMED BY: [facility] [address] [place] [address] PATHOLOGIST [employer] GUIDO ELIZALDE M.D. Performed By: #### G INOCENTE #### Point of Care testing , Glucose [Mass/Vol] 112 mg/dL Normal [facility] Comment on above: Result Comment: [place] om Glucose Reference Range is dependent on time and content of last meal. Glucose of more than 200 mg/dL in a nonstressed, ambulatory subject supports the diagnosis of Diabetes Mellitus. Performed By: #### G LULS #### Point of Care testing , No Panel InformationOrdered By: [place] Gao on 04-15-2022 Bedside Glucose Comment Glu2: cleaned meter [facility] Glucose Poct Glucometerson 0 04-14-2022 Commemt1 Glu2: Cleaned Meter [facility] Comment on above: Result Comment: PERF ORMED BY: [place] [address] PATHOLOGIST [employer] GUIDO ELIZALDE M.D. Performed By: #### C BC, PT, PTT, CMP #### [facility] [address] [place], [place] [id number] [facility] Glucose [Mass/Vol] 116 mg/dL Normal [facility] Comment on above: Result Comment: [place] Glucose Reference Range is dependent on time and content of last meal. Glucose of more than 200 mg/dL in a nonstressed, ambulatory subject supports the diagnosis of Diabetes Mellitus. Performed By: #### C BC, PT, PTT, CMP #### [facility] [address] [place] [address] [place] Commemt1 Glu2: Cleaned Meter [facility] Comment on above: Result Comment: PERF ORMED BY: [facility] [address] [place] [address] PATHOLOGIST [employer] GUIDO ELIZALDE M.D. Performed By: #### C BC, PT, PTT, CMP #### [facility] [address] [place] [id number] [facility] Glucose [Mass/Vol] 107 mg/dL Normal [facility] Comment on above: Result Comment: [place] Glucose Reference Range is dependent on time and content of last meal. Glucose of more than 200 mg/dL in a nonstressed, ambulatory subject supports the diagnosis of Diabetes Mellitus. Performed By: #### C BC, PT, PTT, CMP #### [facility] [address] [place], [place] [phone] [facility] Glucose Poct Glucometerson 0 04-13-2022 Commemt1 Glu2: Cleaned Meter [facility] Comment on above: Result Comment: PERF ORMED BY: [place] [address] PATHOLOGIST [employer] GUIDO ELIZALDE M.D. Performed By: #### G LULS #### Point of Care testing , Glucose [Mass/Vol] 83 mg/dL Normal [facility] Comment on above: Result Comment: [place] Glucose Reference Range is dependent on time and content of last meal. Glucose of more than 200 mg/dL in a nonstressed, ambulatory subject supports the diagnosis of Diabetes Mellitus. Performed By: #### G LULS #### Point of Care testing , Glucose [Mass/Vol] 76 mg/dL Normal [facility] Comment on above: Result Comment: [place] Glucose Reference Range is dependent on time and content of last meal. Glucose of more than 200 mg/dL in a nonstressed, ambulatory subject supports the diagnosis of Diabetes Mellitus. PERFORMED BY: [place] [address] PATHOLOGIST [employer] GUIDO ELIZALDE M.D. Performed By: #### C BC, PT, PTT, CMP #### [facility] [address] [place], [place] [phone] [facility] Glucose Poct Glucometerson 0 04-12-2022 Commemt1 Glu2: Cleaned Meter [facility] Comment on above: Result Comment: PERF ORMED BY: [place] [address] PATHOLOGIST [employer] GUIDO ELIZALDE M.D. Performed By: #### C BC, PT, PTT, CMP #### [place] [address] [place] Glucose [Mass/Vol] 238 mg/dL Normal [facility] Comment on above: Result Comment: [place] Glucose Reference Range is dependent on time and content of last meal. Glucose of more than 200 mg/dL in a nonstressed, ambulatory subject supports the diagnosis of Diabetes Mellitus. Performed By: #### C BC, PT, PTT, CMP #### [address] Glucose [Mass/Vol] 86 mg/dL Normal [facility] Comment on above: Result Comment: [place] Glucose Reference Range is dependent on time and content of last meal. Glucose of more than 200 mg/dL in a nonstressed, ambulatory subject supports the diagnosis of Diabetes Mellitus. PERFORMED BY: [place] [address] PATHOLOGIST [employer] GUIDO ELIZALDE M.D. Performed By: #### G LULS #### Point of Care testing , Glucose Poct Glucometerson 0 04-11-2022 Commemt1 Glu2: Cleaned Meter Normal [facility] Comment on above: Result Comment: PERF ORMED BY: [place] [address] PATHOLOGIST [employer] GUIDO ELIZALDE M.D. Performed By: #### G LULS #### Point of Care testing , Glucose [Mass/Vol] 123 mg/dL Normal [facility] Comment on above: Result Comment: [place] Glucose Reference Range is dependent on time and content of last meal. Glucose of more than 200 mg/dL in a nonstressed, ambulatory subject supports the diagnosis of Diabetes Mellitus. Performed By: #### G LULS #### Point of Care testing , Glucose [Mass/Vol] 107 mg/dL Normal [facility] Comment on above: Result Comment: [place] Glucose Reference Range is dependent on time and content of last meal. Glucose of more than 200 mg/dL in a nonstressed, ambulatory subject supports the diagnosis of Diabetes Mellitus. PERFORMED BY: [place] [address] PATHOLOGIST [employer] GUIDO ELIZALDE M.D. Performed By: #### G LULS #### Point of Care testing , Glucose Poct Glucometerson 0 04-10-2022 Glucose [Mass/Vol] 100 mg/dL Normal [facility] Comment on above: Result Comment: [facility] Glucose Reference Range is dependent on time and content of last meal. Glucose of more than 200 mg/dL in a nonstressed, ambulatory subject supports the diagnosis of Diabetes Mellitus. PERFORMED BY: [facility] [address] [place] [phone] PATHOLOGIST [employer] GUIDO ELIZALDE M.D. Performed By: #### G LULS #### Point of Care testing , Glucose [Mass/Vol] 99 mg/dL Normal [facility] Comment on above: Result Comment: [facility] Glucose Reference Range is dependent on time and content of last meal. Glucose of more than 200 mg/dL in a nonstressed, ambulatory subject supports the diagnosis of Diabetes Mellitus. PERFORMED BY: [place] [phone] PATHOLOGIST [employer] GUIDO ELIZALDE M.D. Performed By: #### C BC, PT, PTT, CMP #### [facility] [address] [place] [address] [place] A1C with Estimated Average G luon 04-09-2022 Glucose [Mass/Vol] 163 mg/dL Normal [facility] Comment on above: Result Comment: PERF ORMED BY: [place] [phone] PATHOLOGIST [employer] GUIDO ELIZALDE M.D. Performed By: #### G LULS #### Point of Care testing , HbA1c (Bld) [Mass fraction] 7.3 % High 4.3-5.6 [facility] Comment on above: Result Comment: Incr eased risk for diabetes: 5.7 - 6.4 diabetes: >6.4 glycemic control for adults with diabetes: <7.0 Performed By: #### G LULS #### Point of Care testing , Cholesterol [Mass/volume] in Serum or PlasmaOrdered By: Justyn Spann on 04-09-2022 Cholesterol [Mass/Vol] 128 mg/dL 140-200 [facility] Comment on above: Chol less than 200 m g/dl low risk Chol 201-239 mg/dl borderline risk Chol 240 mg/dl and greater high risk Cholesterol in LDL Calc [Mas s/Vol]Ordered By: Justyn Spann on 04-09-2022 Cholesterol in LDL [Mass/Vol] 68 mg/dL 0-100 [facility] Comment on above: LDL ATP III CLASSIFI CATION LDL less than 100 mg/dL Optimal LDL 100-129 mg/dL Near or above optimal LDL 130-159 mg/dL Borderline high LDL 160-189 mg/dL High LDL greater than 189 mg/dL Very high Cholesterol in VLDL Calc [Ma ss/Vol]Ordered By: Justyn Spann on 04-09-2022 Cholesterol in VLDL [Mass/Vol] 22 mg/dL [facility] Glucose Poct Glucometerson 0 04-09-2022 Commemt1 Glu2: Cleaned Meter [facility] Comment on above: Result Comment: PERF ORMED BY: [facility] [address] [place] [address] PATHOLOGIST [employer] GUIDO ELIZALDE M.D. Performed By: #### G LULS #### Point of Care testing , Glucose [Mass/Vol] 164 mg/dL [facility] Comment on above: Result Comment: [place] Glucose Reference Range is dependent on time and content of last meal. Glucose of more than 200 mg/dL in a nonstressed, ambulatory subject supports the diagnosis of Diabetes Mellitus. Performed By: #### G LULS #### Point of Care testing , Commemt1 Glu2: Cleaned Meter [facility] Comment on above: Result Comment: PERF ORMED BY: [facility] [address] [place] [address] PATHOLOGIST [employer] GUIDO ELIZALDE M.D. Performed By: #### C BC, PT, PTT, CMP #### [address] Glucose [Mass/Vol] 152 mg/dL Normal [facility] Comment on above: Result Comment: [place] Glucose Reference Range is dependent on time and content of last meal. Glucose of more than 200 mg/dL in a nonstressed, ambulatory subject supports the diagnosis of Diabetes Mellitus. Performed By: #### C BC, PT, PTT, CMP #### [facility] [address] Glucose mean value [Mass/vol ume] in Blood Estimated from glycated hemoglobinOrdered By: Justyn Spann on 04-09-2022 Average glucose Estimated from glycated hemoglobin (Bld) [Mass/Vol] 163 mg/dL [facility] Hemoglobin A1c percentageOrd ered By: Justyn Spann on 04-09-2022 HbA1c (Bld) [Mass fraction] 7.3 % 4.3-5.6 [facility] Comment on above: Increased risk for d iabetes: 5.7 - 6.4 diabetes: >6.4 glycemic control for adults with diabetes: <7.0 Lipid Panelon 04-09-2022 Cholesterol [Mass/Vol] 128 mg/dL Low 140-200 [facility] Comment on above: Result Comment: Chol less than 200 mg/dl low risk Chol 201-239 mg/dl borderline risk Chol 240 mg/dl and greater high risk Performed By: #### G LULS #### Point of Care testing , Cholesterol in HDL [Mass/Vol] 37 mg/dL Normal 35-85 [facility] Comment on above: Result Comment: HDL CHOL ATP-III CLASSIFICATION Cardiovascular Risk HDL > or equal to 60 mg/dL LOW HDL < 40 mg/dL HIGH Performed By: #### G LULS #### Point of Care testing , Cholesterol.total/Choles terol in HDL [Mass ratio] 3.5 {ratio} Normal <5.0 [facility] Comment on above: Result Comment: PERF ORMED BY: [facility] [address] [place] [address] PATHOLOGIST [employer] GUIDO ELIZALDE M.D. Performed By: #### G LULS #### Point of Care testing , LDL Cholesterol,Calculated 68 mg/dL Normal 0-100 [facility] Comment on above: Result Comment: LDL ATP III CLASSIFICATION LDL less than 100 mg/dL Optimal LDL 100-129 mg/dL Near or above optimal LDL 130-159 mg/dL Borderline high LDL 160-189 mg/dL High LDL greater than 189 mg/dL Very high Performed By: #### G LULS #### Point of Care testing , Triglyceride w/Reflex 114 mg/dL Normal 35-149 [facility] Comment on above: Result Comment: TRIG ATP III CLASSIFICATION TRIG less than 150 mg/dL Normal TRIG 150-199 mg/dL Borderline high TRIG 200-500 mg/dL High TRIG greater than 500 mg/dL Very high Standard traceable to the Center for Disease Conrtrol and Prevention (CDC) test method. Performed By: #### G LULS #### Point of Care testing , VLDL CHOLESTEROL 22 mg/dL Normal [facility] Comment on above: Performed By: #### G LULS #### Point of Care testing , Serum or plasma high density lipoprotein (HDL) cholesterol measurementOrdered By: Justyn Spann on 04-09-2022 Cholesterol in HDL [Mass/Vol] 37 mg/dL 35-85 [facility] Comment on above: HDL CHOL ATP-III CLA SSIFICATION Cardiovascular Risk HDL > or equal to 60 mg/dL LOW HDL < 40 mg/dL HIGH Serum or plasma total choles terol/high density lipoprotein (HDL) cholesterol mass ratOrdered By: Justyn Spann on 04-09-2022 Cholesterol.total/Choles terol in HDL [Mass ratio] 3.5 {ratio} <5.0 [facility] Triglyceride [Mass/volume] i n Serum or PlasmaOrdered By: Justyn Spann on 04-09-2022 Triglyceride [Mass/Vol] 114 mg/dL 35-149 [facility] Comment on above: TRIG ATP III CLASSIF ICATION TRIG less than 150 mg/dL Normal TRIG 150-199 mg/dL Borderline high TRIG 200-500 mg/dL High TRIG greater than 500 mg/dL Very high Standard traceable to the Center for Disease Conrtrol and Prevention (CDC) test method. Albumin [Mass/volume] in Ser um or PlasmaOrdered By: Kingston Gao on 04-08-2022 Albumin [Mass/Vol] 2.6 g/dL Low 3.2-5.5 [facility] Comment on above: Performed By: #### C BC, PT, PTT, CMP #### [address] Automated basophil %Ordered By: Kingston Pooleey on 04-08-2022 Basophils/100 WBC (Bld) 0.6 % Normal . [facility] Comment on above: Performed By: #### C BC, PT, PTT, CMP #### [address] Automated basophil countOrde red By: Kingston Murray on 04-08-2022 Basophils (Bld) [#/Vol] 0.0 10*3/uL Normal 0.0-0.2 [facility] Comment on above: Result Comment: PERF ORMED BY: [place] [address] PATHOLOGIST [employer] GUIDO ELIZALDE M.D. Performed By: #### C BC, PT, PTT, CMP #### [address] Automated blood lymphocyte c ount (number/volume)Ordered By: Kingston Gao on 04-08-2022 Lymphocytes (Bld) [#/Vol] 2.0 10*3/uL Normal 1.00-4.8 [facility] Comment on above: Performed By: #### C BC, PT, PTT, CMP #### [address] Automated blood lymphocyte c ount as percentage of total leukocytesOrdered By: Kingston Gao on 04-08-2022 Lymphocytes/100 WBC (Bld) 26.1 % Normal . [facility] Comment on above: Performed By: #### C BC, PT, PTT, CMP #### [address] Automated blood monocyte cou ntOrdered By: Kingston Gao on 04-08-2022 Monocytes (Bld) [#/Vol] 0.7 10*3/uL Normal 0.0-0.8 [facility] Comment on above: Performed By: #### C BC, PT, PTT, CMP #### [place] [address] [place] Automated blood platelet cou nt (count/volume)Ordered By: Kingston Gao on 04-08-2022 Platelets (Bld) [#/Vol] 285 10*3/uL Normal 150-450 [facility] Comment on above: Performed By: #### C BC, PT, PTT, CMP #### [address] Automated blood platelet juliana n volume measurementOrdered By: Kingston Gao on 04-08-2022 Platelet mean volume (Bld) [Entitic vol] 8.4 fL Normal 6.3-10.7 [facility] Comment on above: Performed By: #### C BC, PT, PTT, CMP #### [address] Automated eosinophil %Ordere d By: Kingston Gao on 04-08-2022 Eosinophils/100 WBC (Bld) 2.7 % Normal . [facility] Comment on above: Performed By: #### C BC, PT, PTT, CMP #### [address] Automated eosinophil countOr dered By: Kingston Gao on 04-08-2022 Eosinophils (Bld) [#/Vol] 0.2 10*3/uL Normal 0.0-0.45 [facility] Comment on above: Performed By: #### C BC, PT, PTT, CMP #### [address] Automated erythrocyte distri bution width ratioOrdered By: Kingston Gao on 04-08-2022 Erythrocyte distribution width (RBC) [Ratio] 14.0 % Normal 11.9-15.3 [facility] Comment on above: Performed By: #### C BC, PT, PTT, CMP #### [address] Automated erythrocyte mean c orpuscular hemoglobin (mass per erythrocyte)Ordered By: Kingston Gao on 04-08-2022 MCH (RBC) [Entitic mass] 30.4 pg Normal 24.7-34.3 [facility] Comment on above: Performed By: #### C BC, PT, PTT, CMP #### [address] Automated erythrocyte mean c orpuscular volumeOrdered By: Kingston Gao on 04-08-2022 MCV (RBC) [Entitic vol] 92.2 fL Normal 80-100 [facility] Comment on above: Performed By: #### C BC, PT, PTT, CMP #### [address] Automated monocyte %Ordered By: Kingston Gao on 04-08-2022 Monocytes/100 WBC (Bld) 9.4 % Normal . [facility] Comment on above: Performed By: #### C BC, PT, PTT, CMP #### [address] Automated neutrophil %Ordere d By: Kingston Gao on 04-08-2022 Neutrophils/100 WBC (Bld) 61.2 % Normal . [facility] Comment on above: Performed By: #### C BC, PT, PTT, CMP #### [address] Blood erythrocytes automated count (number/volume)Ordered By: Kingston Gao on 04-08-2022 RBC (Bld) [#/Vol] 3.69 10*6/uL Normal 3.60-5.[address] [facility] Comment on above: Performed By: #### C BC, PT, PTT, CMP #### [address] Blood hemoglobin measurement (mass/volume)Ordered By: Kingston Gao on 04-08-2022 Hemoglobin (Bld) [Mass/Vol] 11.2 g/dL Low 11.8-15.4 [facility] Comment on above: Performed By: #### C BC, PT, PTT, CMP #### [address] Blood leukocytes automated c ount (number/volume)Ordered By: Kingston Gao on 04-08-2022 WBC (Bld) [#/Vol] 7.6 10*3/uL Normal 4.5-11.0 [facility] Comment on above: Performed By: #### C BC, PT, PTT, CMP #### [address] Blood neutrophil count by au tomated method (number/volume)Ordered By: Kingston Gao on 04-08-2022 Neutrophils (Bld) [#/Vol] 4.7 10*3/uL Normal 1.8-7.7 [facility] Comment on above: Performed By: #### C BC, PT, PTT, CMP #### [address] Complete Blood Count Auto Di ffon 04-08-2022 Mean Corpuscular HGB Conc 33.0 g/dL Normal 32.0-35.0 [facility] Comment on above: Performed By: #### C BC, PT, PTT, CMP #### [address] Complete Blood Count Auto Di ffOrdered By: Kingston Gao on 04-08-2022 Nucleated RBC/100 WBC (Bld) [Ratio] 0.1 % Normal 0-0.5 [facility] Comment on above: Performed By: #### C BC, PT, PTT, CMP #### [address] Comprehensive Metabolic Pane sadiq 04-08-2022 ALT [Catalytic activity/Vol] 17 U/L Normal 10-60 [facility] Comment on above: Performed By: #### C BC, PT, PTT, CMP #### [address] Creatinine Clr Calc Pharmacy 57.76 Normal [facility] Comment on above: Performed By: #### C BC, PT, PTT, CMP #### [address] Estimated GFR ( Froylan > 60 Normal [facility] Comment on above: Result Comment: GFR estimated reference range: According to KDOQI guidelines, <60 ml/min/1.73m2 is sufficient to diagnose a patient with chronic kidney disease. Performed By: #### C BC, PT, PTT, CMP #### [facility] [address] [place] [address] Estimated GFR (Non- Am > 60 Normal [facility] Comment on above: Performed By: #### C BC, PT, PTT, CMP #### [address] Estimated glomerular filtrat ion rate (GFR) non- AmericanOrdered By: Kingston Gao on 04-08-2022 GFR/1.73 sq M.predicted among non-blacks MDRD (S/P/Bld) [Vol rate/Area] > 60 mL/Min [facility] Glucose Poct Glucometerson 0 04-08-2022 Glucose [Mass/Vol] 83 mg/dL Normal [facility] Comment on above: Result Comment: [facility] Glucose Reference Range is dependent on time and content of last meal. Glucose of more than 200 mg/dL in a nonstressed, ambulatory subject supports the diagnosis of Diabetes Mellitus. PERFORMED BY: [place] [address] PATHOLOGIST [employer] GUIDO ELIZALDE M.D. Performed By: #### G LULS #### Point of Care testing , Glucose [Mass/Vol] 115 mg/dL Normal [facility] Comment on above: Result Comment: [facility] Glucose Reference Range is dependent on time and content of last meal. Glucose of more than 200 mg/dL in a nonstressed, ambulatory subject supports the diagnosis of Diabetes Mellitus. PERFORMED BY: [place] [address] PATHOLOGIST [employer] GUIDO ELIZALDE M.D. Performed By: #### C BC, PT, PTT, CMP #### [facility] [address] [place] [address] Hematocrit [Volume Fraction] of Blood by Automated countOrdered By: Kingston Gao on 04-08-2022 Hematocrit (Bld) [Volume fraction] 34.0 % Normal 34.0-46.4 [facility] Comment on above: Performed By: #### C BC, PT, PTT, CMP #### [facility] [address] MCHC Auto (RBC) [Mass/Vol]Or dered By: Kingston Gao on 04-08-2022 MCHC (RBC) [Mass/Vol] 33.0 g/dL 32.0-35.0 [facility] No Panel InformationOrdered By: Kingston Gao on 04-08-2022 Estimated GFR () > 60 mL/Min [facility] Comment on above: GFR estimated refere nce range: According to KDOQI guidelines, <60 ml/min/1.73m2 is sufficient to diagnose a patient with chronic kidney disease. Pharmacy Creatinine Clearance (Chem 57.76 [facility] Protein [Mass/volume] in Ser um or PlasmaOrdered By: Kingston Gao on 04-08-2022 Protein [Mass/Vol] 5.6 g/dL Low 6.1-7.9 [facility] Comment on above: Performed By: #### C BC, PT, PTT, CMP #### [facility] [address] Serum globulin measurement b y calculation (mass/volume)Ordered By: Kingston Gao on 04-08-2022 Globulin (S) [Mass/Vol] 3.0 g/dL Normal [facility] Comment on above: Performed By: #### C BC, PT, PTT, CMP #### [facility] [address] Serum or plasma alanine [place] otransferase measurement without P-5'-P (enzymatic activiOrdered By: Kingston Gao on 04-08-2022 ALT No additional P-5'-P [Catalytic activity/Vol] 17 U/L 10-60 [facility] Serum or plasma albumin/glob ulin mass ratioOrdered By: Kingston Gao on 04-08-2022 Albumin/Globulin [Mass ratio] 0.9 {ratio} Normal [facility] Comment on above: Performed By: #### C BC, PT, PTT, CMP #### [address] Serum or plasma alkaline dolly sphatase measurement (enzymatic activity/volume)Ordered By: Kingston Gao on 04-08-2022 ALP [Catalytic activity/Vol] 56 U/L Normal 32-92 [facility] Comment on above: Performed By: #### C BC, PT, PTT, CMP #### [facility] [address] Serum or plasma aspartate am inotransferase measurement (enzymatic activity/volume)Ordered By: Kingston Murray on 04-08-2022 AST [Catalytic activity/Vol] 18 U/L Normal 10-42 [facility] Comment on above: Performed By: #### C BC, PT, PTT, CMP #### [facility] [address] Serum or plasma calcium nakul urement (mass/volume)Ordered By: Kingston Pooleey on 04-08-2022 Calcium [Mass/Vol] 9.2 mg/dL Normal 8.2-10.2 [facility] Comment on above: Performed By: #### C BC, PT, PTT, CMP #### [address] Serum or plasma chloride juliana surement (moles/volume)Ordered By: Kingston Gao on 04-08-2022 Chloride [Moles/Vol] 101 mmol/L Normal 95-114 [facility] Comment on above: Performed By: #### C BC, PT, PTT, CMP #### [address] Serum or plasma creatinine m easurement with calculation of estimated glomerular filtrOrdered By: Kingston Gao on 04-08-2022 Creatinine [Mass/Vol] 0.72 mg/dL Normal 0.44-1.03 [facility] Comment on above: Performed By: #### C BC, PT, PTT, CMP #### [facility] [address] [place] [address] Serum or plasma glucose nakul urement (mass/volume)Ordered By: Kingston Murray on 04-08-2022 Glucose [Mass/Vol] 119 mg/dL High 70-100 [facility] Comment on above: ADA recommended refe rence range Random Glucose Reference Range is dependent on time and content of last meal. Glucose of more than 200 mg/dL in a nonstressed, ambulatory subject supports the diagnosis of Diabetes Mellitus. Result Comment: [facility] Glucose Reference Range is dependent on time and content of last meal. Glucose of more than 200 mg/dL in a nonstressed, ambulatory subject supports the diagnosis of Diabetes Mellitus. ADA recommended reference range Performed By: #### C BC, PT, PTT, CMP #### [address] Serum or plasma potassium me asurement (moles/volume)Ordered By: Kingston Gao on 04-08-2022 Potassium [Moles/Vol] 4.2 mmol/L Normal 3.5-5.1 [facility] Comment on above: Performed By: #### C BC, PT, PTT, CMP #### [address] Serum or plasma prealbumin m easurement (mass/volume)Ordered By: Kingston Gao on 04-08-2022 Prealbumin [Mass/Vol] 15.9 mg/dL Low 18.0-38.0 [facility] Comment on above: Result Comment: PERF ORMED BY: [place] [address] PATHOLOGIST [employer] GUIDO ELIZALDE M.D. Performed By: #### C BC, PT, PTT, CMP #### [address] Serum or plasma sodium measu rement (moles/volume)Ordered By: Kingston Gao on 04-08-2022 Sodium [Moles/Vol] 138 mmol/L Normal 136-146 [facility] Comment on above: Performed By: #### C BC, PT, PTT, CMP #### [address] Serum or plasma total biliru bin measurement (mass/volume)Ordered By: Kingston Gao on 04-08-2022 Bilirubin [Mass/Vol] 0.5 mg/dL Normal 0.3-1.2 [facility] Comment on above: Performed By: #### C BC, PT, PTT, CMP #### [address] [place] [address] [place] Serum or plasma total carbon dioxide measurement (moles/volume)Ordered By: Kingston Murray on 04-08-2022 CO2 [Moles/Vol] 28.4 mmol/L Normal 22.0-30.0 [facility] Comment on above: Performed By: #### C BC, PT, PTT, CMP #### [address] Serum or plasma urea nitroge n measurement (mass/volume)Ordered By: Kingston Gao on 04-08-2022 Urea nitrogen [Mass/Vol] 7 mg/dL Low 9- [facility] Comment on above: Performed By: #### C BC, PT, PTT, CMP #### [address] Glucose Poct Glucometerson 0 04-07-2022 Glucose [Mass/Vol] 161 mg/dL Normal [facility] Comment on above: Result Comment: [facility] Glucose Reference Range is dependent on time and content of last meal. Glucose of more than 200 mg/dL in a nonstressed, ambulatory subject supports the diagnosis of Diabetes Mellitus. PERFORMED BY: [place] [address] PATHOLOGIST [employer] GUIDO ELIZALDE M.D. Performed By: #### C BC, PT, PTT, CMP #### [address] Glucose [Mass/Vol] 110 mg/dL Normal [facility] Comment on above: Result Comment: [facility] Glucose Reference Range is dependent on time and content of last meal. Glucose of more than 200 mg/dL in a nonstressed, ambulatory subject supports the diagnosis of Diabetes Mellitus. PERFORMED BY: [place] [address] PATHOLOGIST [employer] GUIDO ELIZALDE M.D. Performed By: #### G LUMARKUS #### Point of Care testing , Urine culture routineOrdered By: Kieran Scott on 03-29-2022 Bacteria identified Cx Nom (U) 2 Days [facility] Albumin [Mass/volume] in Ser um or PlasmaOrdered By: Kieran Scott on 03-28-2022 Albumin [Mass/Vol] 2.8 g/dL 3.2-5.5 [facility] Basophils Auto (Bld) [#/Vol] Ordered By: Kieran Scott on 03-28-2022 Basophils (Bld) [#/Vol] 0.0 10*3/uL 0.0-0.2 [facility] Basophils/100 WBC Auto (Bld) Ordered By: Kieran Scott on 03-28-2022 Basophils/100 WBC (Bld) 0.6 % . [facility] Blood hemoglobin measurement (mass/volume)Ordered By: Kieran Scott on 03-28-2022 Hemoglobin (Bld) [Mass/Vol] 13.1 g/dL 11.8-15.4 [facility] Blood leukocytes automated c ount (number/volume)Ordered By: Kieran Scott on 03-28-2022 WBC (Bld) [#/Vol] 7.1 10*3/uL 4.5-11.0 [facility] Complete Blood Count Auto Di ffon 03-28-2022 Basophils (Bld) [#/Vol] 0.0 10*3/uL Normal 0.0-0.2 [facility] Comment on above: Result Comment: PERF ORMED BY: [facility] [address] [place] [address] PATHOLOGIST [employer] GUIDO ELIZALDE M.D. Performed By: #### G LULS #### Point of Care testing , Basophils/100 WBC (Bld) 0.6 % Normal . [facility] Comment on above: Performed By: #### G LULS #### Point of Care testing , Eosinophils (Bld) [#/Vol] 0.3 10*3/uL Normal 0.0-0.45 [facility] Comment on above: Performed By: #### G LULS #### Point of Care testing , Eosinophils/100 WBC (Bld) 3.9 % Normal . [facility] Comment on above: Performed By: #### G LULS #### Point of Care testing , Erythrocyte distribution width (RBC) [Ratio] 13.7 % Normal 11.9-15.3 [facility] Comment on above: Performed By: #### G CLEMENTLS #### Point of Care testing , Hematocrit (Bld) [Volume fraction] 38.7 % Normal 34.0-46.4 [facility] Comment on above: Performed By: #### G CLEMENTLS #### Point of Care testing , Hemoglobin (Bld) [Mass/Vol] 13.1 g/dL Normal 11.8-15.4 [facility] Comment on above: Performed By: #### G CLEMENTLS #### Point of Care testing , Lymphocytes (Bld) [#/Vol] 2.7 10*3/uL Normal 1.00-4.8 [facility] Comment on above: Performed By: #### G CLEMENTLS #### Point of Care testing , Lymphocytes/100 WBC (Bld) 37.6 % Normal . [facility] Comment on above: Performed By: #### G CLEMENTLS #### Point of Care testing , MCH (RBC) [Entitic mass] 30.7 pg Normal 24.7-34.3 [facility] Comment on above: Performed By: #### G CLEMENTLS #### Point of Care testing , MCV (RBC) [Entitic vol] 90.6 fL Normal 80-100 [facility] Comment on above: Performed By: #### G CLEMENTLS #### Point of Care testing , Mean Corpuscular HGB Conc 33.9 g/dL Normal 32.0-35.0 [facility] Comment on above: Performed By: #### G CLEMENTLS #### Point of Care testing , Monocytes (Bld) [#/Vol] 0.6 10*3/uL Normal 0.0-0.8 [facility] Comment on above: Performed By: #### G CLEMENTLS #### Point of Care testing , Monocytes/100 WBC (Bld) 8.5 % Normal . [facility] Comment on above: Performed By: #### G CLEMENTLS #### Point of Care testing , Neutrophils (Bld) [#/Vol] 3.5 10*3/uL Normal 1.8-7.7 [facility] Comment on above: Performed By: #### G INOCENTE #### Point of Care testing , Neutrophils/100 WBC (Bld) 49.4 % Normal . [facility] Comment on above: Performed By: #### G CLEMENTLS #### Point of Care testing , Nucleated RBC/100 WBC (Bld) [Ratio] 0.2 % Normal 0-0.5 [facility] Comment on above: Performed By: #### G INOCENTE #### Point of Care testing , Platelet mean volume (Bld) [Entitic vol] 8.8 fL Normal 6.3-10.7 [facility] Comment on above: Performed By: #### G INOCENTE #### Point of Care testing , Platelets (Bld) [#/Vol] 245 10*3/uL Normal 150-450 [facility] Comment on above: Performed By: #### Shanti BROWER #### Point of Care testing , RBC (Bld) [#/Vol] 4.27 10*6/uL Normal 3.60-5.[address] [facility] Comment on above: Performed By: #### G INOCENTE #### Point of Care testing , WBC (Bld) [#/Vol] 7.1 10*3/uL Normal 4.5-11.0 [facility] Comment on above: Performed By: #### Shanti VAUGHANLS #### Point of Care testing , Comprehensive Metabolic Pane sadiq 03-28-2022 Alanine Aminotransferase Normal 10-60 [facility] Comment on above: Result Comment: Unac ceptable specimen due to hemolysis. Redraw reordered. Performed By: #### G INOCENTE #### Point of Care testing , Albumin [Mass/Vol] 2.8 g/dL Low 3.2-5.5 [facility] Comment on above: Performed By: #### G INOCENTE #### Point of Care testing , Albumin/Globulin [Mass ratio] 1.0 {ratio} Normal [facility] Comment on above: Performed By: #### G LULS #### Point of Care testing , Alkaline Phosphatase Normal 32-92 [facility] Comment on above: Result Comment: Unac ceptable specimen due to hemolysis. Redraw reordered. Performed By: #### G LULS #### Point of Care testing , Aspartate Amino Transferase Normal 10-42 [facility] Comment on above: Result Comment: Unac ceptable specimen due to hemolysis. Redraw reordered. Performed By: #### G LULS #### Point of Care testing , Bilirubin,Total Normal 0.3-1.2 [facility] Comment on above: Result Comment: Unac ceptable specimen due to hemolysis. Redraw reordered. Performed By: #### G LULS #### Point of Care testing , Calcium [Mass/Vol] 8.8 mg/dL Normal 8.2-10.2 [facility] Comment on above: Performed By: #### G LULS #### Point of Care testing , Chloride [Moles/Vol] 104 mmol/L Normal 95-114 [facility] Comment on above: Performed By: #### G LULS #### Point of Care testing , CO2 [Moles/Vol] 25.7 mmol/L Normal 22.0-30.0 [facility] Comment on above: Performed By: #### G LULS #### Point of Care testing , Creatinine [Mass/Vol] 0.74 mg/dL Normal 0.44-1.03 [facility] Comment on above: Performed By: #### G LULS #### Point of Care testing , Creatinine Clr Calc Pharmacy 53.72 [facility] Comment on above: Result Comment: PERF ORMED BY: [facility] [address] [place] [address] PATHOLOGIST [employer] GUIDO ELIZALDE M.D. Performed By: #### G LULS #### Point of Care testing , Estimated GFR ( Froylan > 60 [facility] Comment on above: Result Comment: GFR estimated reference range: According to KDOQI guidelines, <60 ml/min/1.73m2 is sufficient to diagnose a patient with chronic kidney disease. Performed By: #### G LULS #### Point of Care testing , Estimated GFR (Non- Am > 60 Normal [facility] Comment on above: Performed By: #### G LULS #### Point of Care testing , Globulin (S) [Mass/Vol] 2.9 g/dL Normal [facility] Comment on above: Performed By: #### G LULS #### Point of Care testing , Glucose [Mass/Vol] 193 mg/dL High 70-100 [facility] Comment on above: Result Comment: [place] Glucose Reference Range is dependent on time and content of last meal. Glucose of more than 200 mg/dL in a nonstressed, ambulatory subject supports the diagnosis of Diabetes Mellitus. ADA recommended reference range Performed By: #### G LULS #### Point of Care testing , Potassium Normal 3.5-5.1 [facility] Comment on above: Result Comment: Unac ceptable specimen due to hemolysis. Redraw reordered. Performed By: #### G LULS #### Point of Care testing , Protein [Mass/Vol] 5.7 g/dL Low 6.1-7.9 [facility] Comment on above: Performed By: #### G LULS #### Point of Care testing , Sodium [Moles/Vol] 138 mmol/L Normal 136-146 [facility] Comment on above: Performed By: #### G LULS #### Point of Care testing , Urea nitrogen [Mass/Vol] 18 mg/dL Normal 9-23 [facility] [facility] Comment on above: Performed By: #### G LULS #### Point of Care testing , Creatinine and Glomerular fi ltration rate.predicted panel (S/P/Bld)Ordered By: Kieran Scott on 03-28-2022 Creatinine [Mass/Vol] 0.74 mg/dL 0.44-1.03 [facility] Eosinophils Auto (Bld) [#/Vo l]Ordered By: Kieran Scott on 03-28-2022 Eosinophils (Bld) [#/Vol] 0.3 10*3/uL 0.0-0.45 [facility] Eosinophils/100 WBC Auto (Bl d)Ordered By: Kieran Scott on 03-28-2022 Eosinophils/100 WBC (Bld) 3.9 % . [facility] Erythrocyte distribution wid th Auto (RBC) [Ratio]Ordered By: Kieran Scott on 03-28-2022 Erythrocyte distribution width (RBC) [Ratio] 13.7 % 11.9-15.3 [facility] Estimated glomerular filtrat ion rate (GFR) non- AmericanOrdered By: Kieran Scott on 03-28-2022 GFR/1.73 sq M.predicted among non-blacks MDRD (S/P/Bld) [Vol rate/Area] > 60 mL/Min [facility] Globulin Calc (S) [Mass/Vol] Ordered By: Kieran Scott on 03-28-2022 Globulin (S) [Mass/Vol] 2.9 g/dL [facility] Glucose Glucometer (BldC) [M ass/Vol]Ordered By: Rupert Anthony on 03-28-2022 Glucose [Mass/Vol] 236 mg/dL [facility] Comment on above: Random Glucose Refer ence Range is dependent on time and content of last meal. Glucose of more than 200 mg/dL in a nonstressed, ambulatory subject supports the diagnosis of Diabetes Mellitus. Glucose Poct Glucometerson 0 03-28-2022 Commemt1 Glu2: Cleaned Meter Normal [facility] Comment on above: Result Comment: PERF ORMED BY: [place] [address] PATHOLOGIST [employer] GUIDO ELIZALDE M.D. Performed By: #### C BC, PT, PTT, CMP #### [address] Glucose [Mass/Vol] 236 mg/dL Normal [facility] Comment on above: Result Comment: [place] Glucose Reference Range is dependent on time and content of last meal. Glucose of more than 200 mg/dL in a nonstressed, ambulatory subject supports the diagnosis of Diabetes Mellitus. Performed By: #### C BC, PT, PTT, CMP #### [facility] [address] Glucose [Mass/Vol] 193 mg/dL Normal [facility] Comment on above: Result Comment: [facility] Glucose Reference Range is dependent on time and content of last meal. Glucose of more than 200 mg/dL in a nonstressed, ambulatory subject supports the diagnosis of Diabetes Mellitus. PERFORMED BY: [facility] [address] [place] [address] PATHOLOGIST [employer] GUIDO ELIZALDE M.D. Performed By: #### C BC, PT, PTT, CMP #### [facility] [address] Hematocrit Auto (Bld) [Volum e fraction]Ordered By: Kieran Scott on 03-28-2022 Hematocrit (Bld) [Volume fraction] 38.7 % 34.0-46.4 [facility] Laboratory - Chemistry and C hemistry - challengeOrdered By: Kieran Scott on 03-28-2022 AST [Catalytic activity/Vol] 24 U/L 10-42 [facility] Laboratory - Hematology and Cell countsOrdered By: Kieran Scott on 03-28-2022 Nucleated RBC/100 WBC (Bld) [Ratio] 0.2 % 0-0.5 [facility] Lymphocytes Auto (Bld) [#/Vo l]Ordered By: Kieran Scott on 03-28-2022 Lymphocytes (Bld) [#/Vol] 2.7 10*3/uL 1.00-4.8 [facility] Lymphocytes/100 WBC Auto (Bl d)Ordered By: Kieran Scott on 03-28-2022 Lymphocytes/100 WBC (Bld) 37.6 % . [facility] MCH Auto (RBC) [Entitic mass ]Ordered By: Kieran Scott on 03-28-2022 MCH (RBC) [Entitic mass] 30.7 pg 24.7-34.3 [facility] MCHC Auto (RBC) [Mass/Vol]Or dered By: Kieran Scott on 03-28-2022 MCHC (RBC) [Mass/Vol] 33.9 g/dL 32.0-35.0 [facility] MCV Auto (RBC) [Entitic vol] Ordered By: Kieran Scott on 03-28-2022 MCV (RBC) [Entitic vol] 90.6 fL 80-100 [facility] Monocytes Auto (Bld) [#/Vol] Ordered By: Kieran Tyler on 03-28-2022 Monocytes (Bld) [#/Vol] 0.6 10*3/uL 0.0-0.8 [facility] Monocytes/100 WBC Auto (Bld) Ordered By: Kieran Tyler on 03-28-2022 Monocytes/100 WBC (Bld) 8.5 % . [facility] Neutrophils Auto (Bld) [#/Vo l]Ordered By: Kieran Tyler on 03-28-2022 Neutrophils (Bld) [#/Vol] 3.5 10*3/uL 1.8-7.7 [facility] Neutrophils/100 WBC Auto (Bl d)Ordered By: Kieran Scott on 03-28-2022 Neutrophils/100 WBC (Bld) 49.4 % . [facility] No Panel InformationOrdered By: Rupert Anthony on 03-28-2022 Bedside Glucose Comment Glu2: cleaned meter [facility] No Panel InformationOrdered By: Kieran Scott on 03-28-2022 Estimated GFR () > 60 mL/Min [facility] Comment on above: GFR estimated refere nce range: According to KDOQI guidelines, <60 ml/min/1.73m2 is sufficient to diagnose a patient with chronic kidney disease. Pharmacy Creatinine Clearance (Chem 53.72 [facility] Platelet mean volume Auto (B ld) [Entitic vol]Ordered By: Kieran Tyler on 03-28-2022 Platelet mean volume (Bld) [Entitic vol] 8.8 fL 6.3-10.7 [facility] Platelets Auto (Bld) [#/Vol] Ordered By: Kieran Tyler on 03-28-2022 Platelets (Bld) [#/Vol] 245 10*3/uL 150-450 [facility] Protein [Mass/volume] in Ser um or PlasmaOrdered By: Kieran Scott on 03-28-2022 Protein [Mass/Vol] 5.7 g/dL 6.1-7.9 [facility] RBC Auto (Bld) [#/Vol]Ordere d By: Kieran Scott on 03-28-2022 RBC (Bld) [#/Vol] 4.27 10*6/uL 3.60-5.[address] [facility] Redraw Jadyn 03-28-2022 ALT [Catalytic activity/Vol] 25 U/L Normal 10-60 [facility] Comment on above: Order Comment: REDRA W Performed By: #### G LULS #### Point of Care testing , Redraw Tripp 03-28-2022 AST [Catalytic activity/Vol] 24 U/L Normal 10-42 [facility] Comment on above: Order Comment: REDRA W Performed By: #### G LULS #### Point of Care testing , Redraw Alkaline Phosphataseo n 03-28-2022 ALP [Catalytic activity/Vol] 50 U/L Normal 32-92 [facility] Comment on above: Order Comment: REDRA W Result Comment: PERF ORMED BY: [facility] [address] [place] [address] PATHOLOGIST [employer] GUIDO ELIZALDE M.D. Performed By: #### G LULS #### Point of Care testing , Redraw Bilirubin,Totalon Bilirubin [Mass/Vol] 0.8 mg/dL Normal 0.3-1.2 [facility] Comment on above: Order Comment: REDRA W Performed By: #### G LULS #### Point of Care testing , Redraw Potassiumon Potassium [Moles/Vol] 4.7 mmol/L Normal 3.5-5.1 [facility] Comment on above: Order Comment: REDRA W Performed By: #### G LULS #### Point of Care testing , Serum or plasma alanine [place] otransferase measurement without P-5'-P (enzymatic activiOrdered By: Kieran Scott on 03-28-2022 ALT No additional P-5'-P [Catalytic activity/Vol] 25 U/L 10-60 [facility] Serum or plasma albumin/glob ulin mass ratioOrdered By: Kieran Scott on 03-28-2022 Albumin/Globulin [Mass ratio] 1.0 {ratio} [facility] Serum or plasma alkaline dolly sphatase measurement (enzymatic activity/volume)Ordered By: Kieran Scott on 03-28-2022 ALP [Catalytic activity/Vol] 50 U/L 32-92 [facility] Serum or plasma calcium nakul urement (mass/volume)Ordered By: Kieran Scott on 03-28-2022 Calcium [Mass/Vol] 8.8 mg/dL 8.2-10.2 [facility] Serum or plasma chloride juliana surement (moles/volume)Ordered By: Kieran Scott on 03-28-2022 Chloride [Moles/Vol] 104 mmol/L 95-114 [facility] Serum or plasma glucose nakul urement (mass/volume)Ordered By: Kieran Scott on 03-28-2022 Glucose [Mass/Vol] 193 mg/dL 70-100 [facility] Comment on above: ADA recommended refe rence range Random Glucose Reference Range is dependent on time and content of last meal. Glucose of more than 200 mg/dL in a nonstressed, ambulatory subject supports the diagnosis of Diabetes Mellitus. Serum or plasma potassium me asurement (moles/volume)Ordered By: Kieran Scott on 03-28-2022 Potassium [Moles/Vol] 4.7 mmol/L 3.5-5.1 [facility] Serum or plasma sodium measu rement (moles/volume)Ordered By: Kieran Scott on 03-28-2022 Sodium [Moles/Vol] 138 mmol/L 136-146 [facility] Serum or plasma total biliru bin measurement (mass/volume)Ordered By: Kieran Scott on 03-28-2022 Bilirubin [Mass/Vol] 0.8 mg/dL 0.3-1.2 [facility] Serum or plasma total carbon dioxide measurement (moles/volume)Ordered By: Kieranreyes Scott on 03-28-2022 CO2 [Moles/Vol] 25.7 mmol/L 22.0-30.0 [facility] Serum or plasma urea nitroge n measurement (mass/volume)Ordered By: Kieranreyes Scott on 03-28-2022 Urea nitrogen [Mass/Vol] 18 mg/dL 9-23 [facility] Automated erythrocytes count in urine sediment (number/area)Ordered By: Kieran Scott on 03-27-2022 RBC Auto (Urine sed) [#/Area] 10-19 [HPF] 0-4 [facility] Automated leukocytes count i n urine sediment (number/area)Ordered By: Kieran Tyler on 03-27-2022 WBC Auto (Urine sed) [#/Area] 5-9 [HPF] 0-4 [facility] Bilirubin Test strip Ql (U)O rdered By: Kieranreyes Scott on 03-27-2022 Bilirubin Ql (U) Negative Negative [facility] Color Auto (U)Ordered By: Vivek Scott on 03-27-2022 Color (U) Yellow Yellow [facility] Complete Blood Count Auto Di ffon 03-27-2022 Basophils (Bld) [#/Vol] 0.0 10*3/uL Normal 0.0-0.2 [facility] Comment on above: Result Comment: PERF ORMED BY: [place] [address] PATHOLOGIST [employer] GUIDO ELIZALDE M.D. Performed By: #### C BC, PT, PTT, CMP #### [facility] [address] [place] [address] [place] Basophils/100 WBC (Bld) 0.4 % Normal . [facility] Comment on above: Performed By: #### C BC, PT, PTT, CMP #### [facility] [address] [place] [address] [place] Eosinophils (Bld) [#/Vol] 0.3 10*3/uL Normal 0.0-0.45 [facility] Comment on above: Performed By: #### C BC, PT, PTT, CMP #### [facility] [address] Eosinophils/100 WBC (Bld) 4.2 % Normal . [facility] Comment on above: Performed By: #### C BC, PT, PTT, CMP #### [address] Erythrocyte distribution width (RBC) [Ratio] 13.8 % Normal 11.9-15.3 [facility] Comment on above: Performed By: #### C BC, PT, PTT, CMP #### [address] Hematocrit (Bld) [Volume fraction] 40.4 % Normal 34.0-46.4 [facility] Comment on above: Performed By: #### C BC, PT, PTT, CMP #### [address] Hemoglobin (Bld) [Mass/Vol] 13.6 g/dL Normal 11.8-15.4 [facility] Comment on above: Performed By: #### C BC, PT, PTT, CMP #### [address] Lymphocytes (Bld) [#/Vol] 3.0 10*3/uL Normal 1.00-4.8 [facility] Comment on above: Performed By: #### C BC, PT, PTT, CMP #### [place] [address] [place] Lymphocytes/100 WBC (Bld) 36.2 % Normal . [facility] Comment on above: Performed By: #### C BC, PT, PTT, CMP #### [address] MCH (RBC) [Entitic mass] 30.7 pg Normal 24.7-34.3 [facility] Comment on above: Performed By: #### C BC, PT, PTT, CMP #### [address] MCV (RBC) [Entitic vol] 90.9 fL Normal 80-100 [facility] Comment on above: Performed By: #### C BC, PT, PTT, CMP #### [address] Mean Corpuscular HGB Conc 33.7 g/dL Normal 32.0-35.0 [facility] Comment on above: Performed By: #### C BC, PT, PTT, CMP #### [address] Monocytes (Bld) [#/Vol] 0.8 10*3/uL Normal 0.0-0.8 [facility] Comment on above: Performed By: #### C BC, PT, PTT, CMP #### [address] Monocytes/100 WBC (Bld) 9.6 % Normal . [facility] Comment on above: Performed By: #### C BC, PT, PTT, CMP #### [address] Neutrophils (Bld) [#/Vol] 4.1 10*3/uL Normal 1.8-7.7 [facility] Comment on above: Performed By: #### C BC, PT, PTT, CMP #### [address] Neutrophils/100 WBC (Bld) 49.6 % Normal . [facility] Comment on above: Performed By: #### C BC, PT, PTT, CMP #### [address] Nucleated RBC/100 WBC (Bld) [Ratio] 0.0 % Normal 0-0.5 [facility] Comment on above: Performed By: #### C BC, PT, PTT, CMP #### [address] Platelet mean volume (Bld) [Entitic vol] 8.6 fL Normal 6.3-10.7 [facility] Comment on above: Performed By: #### C BC, PT, PTT, CMP #### [address] [place] [address] [place] Platelets (Bld) [#/Vol] 240 10*3/uL Normal 150-450 [facility] Comment on above: Performed By: #### C BC, PT, PTT, CMP #### [address] RBC (Bld) [#/Vol] 4.45 10*6/uL Normal 3.60-5.[address] [facility] Comment on above: Performed By: #### C BC, PT, PTT, CMP #### [address] WBC (Bld) [#/Vol] 8.2 10*3/uL Normal 4.5-11.0 [facility] Comment on above: Performed By: #### C BC, PT, PTT, CMP #### [address] Comprehensive Metabolic Pane sadiq 03-27-2022 Albumin [Mass/Vol] 2.9 g/dL Low 3.2-5.5 [facility] Comment on above: Performed By: #### C BC, PT, PTT, CMP #### [address] Albumin/Globulin [Mass ratio] 1.0 {ratio} Normal [facility] Comment on above: Performed By: #### C BC, PT, PTT, CMP #### [address] ALP [Catalytic activity/Vol] 51 U/L Normal 32-92 [facility] Comment on above: Performed By: #### C BC, PT, PTT, CMP #### [address] ALT [Catalytic activity/Vol] 26 U/L Normal 10-60 [facility] Comment on above: Performed By: #### C BC, PT, PTT, CMP #### [address] AST [Catalytic activity/Vol] 22 U/L Normal 10-42 [facility] Comment on above: Performed By: #### C BC, PT, PTT, CMP #### [facility] [address] Bilirubin [Mass/Vol] 0.8 mg/dL Normal 0.3-1.2 [facility] Comment on above: Performed By: #### C BC, PT, PTT, CMP #### [facility] [address] Calcium [Mass/Vol] 9.0 mg/dL Normal 8.2-10.2 [facility] Comment on above: Performed By: #### C BC, PT, PTT, CMP #### [facility] [address] Chloride [Moles/Vol] 101 mmol/L Normal 95-114 [facility] Comment on above: Performed By: #### C BC, PT, PTT, CMP #### [address] CO2 [Moles/Vol] 27.1 mmol/L Normal 22.0-30.0 [facility] Comment on above: Performed By: #### C BC, PT, PTT, CMP #### [facility] [address] [place] [address] Creatinine [Mass/Vol] 0.85 mg/dL Normal 0.44-1.03 [facility] Comment on above: Performed By: #### C BC, PT, PTT, CMP #### [facility] [address] [place] [address] Creatinine Clr Calc Pharmacy 50.56 [facility] Comment on above: Result Comment: PERF ORMED BY: [place] [address] PATHOLOGIST [employer] GUIDO ELIZALDE M.D. Performed By: #### C BC, PT, PTT, CMP #### [address] Estimated GFR ( Froylan > 60 Normal [facility] Comment on above: Result Comment: GFR estimated reference range: According to KDOQI guidelines, <60 ml/min/1.73m2 is sufficient to diagnose a patient with chronic kidney disease. Performed By: #### C BC, PT, PTT, CMP #### [facility] [address] Estimated GFR (Non- Am > 60 Normal [facility] Comment on above: Performed By: #### C BC, PT, PTT, CMP #### [facility] [address] Globulin (S) [Mass/Vol] 3.0 g/dL Normal [facility] Comment on above: Performed By: #### C BC, PT, PTT, CMP #### [address] Glucose [Mass/Vol] 177 mg/dL High 70-100 [facility] Comment on above: Result Comment: [place] Glucose Reference Range is dependent on time and content of last meal. Glucose of more than 200 mg/dL in a nonstressed, ambulatory subject supports the diagnosis of Diabetes Mellitus. ADA recommended reference range Performed By: #### C BC, PT, PTT, CMP #### [address] Potassium [Moles/Vol] 4.0 mmol/L Normal 3.5-5.1 [facility] Comment on above: Performed By: #### C BC, PT, PTT, CMP #### [address] Protein [Mass/Vol] 5.9 g/dL Low 6.1-7.9 [facility] Comment on above: Performed By: #### C BC, PT, PTT, CMP #### [facility] [address] Sodium [Moles/Vol] 139 mmol/L Normal 136-146 [facility] Comment on above: Performed By: #### C BC, PT, PTT, CMP #### [facility] [address] Urea nitrogen [Mass/Vol] 23 mg/dL Normal 9-23 [facility] Comment on above: Performed By: #### C BC, PT, PTT, CMP #### [facility] [address] [place] [address] [place] Dipstick and Microscopicon 0 03-27-2022 Appearance (U) Clear Normal Clear [facility] Comment on above: Order Comment: Name Collection Type:: Clean-Voided Midstream Performed By: #### G LULS #### Point of Care testing , Bacteria,Urine None Seen Normal None Seen [facility] Comment on above: Order Comment: Name Collection Type:: Clean-Voided Midstream Performed By: #### G LULS #### Point of Care testing , Bilirubin,Urine Negative Normal Negative [facility] Comment on above: Order Comment: Name Collection Type:: Clean-Voided Midstream Performed By: #### G LULS #### Point of Care testing , Color (U) Yellow Normal Yellow [facility] Comment on above: Order Comment: Name Collection Type:: Clean-Voided Midstream Performed By: #### G LULS #### Point of Care testing , Glucose Ql (U) 500 mg/dL High Normal [facility] Comment on above: Order Comment: Name Collection Type:: Clean-Voided Midstream Performed By: #### G LULS #### Point of Care testing , Hyaline Casts,Urine None Seen Normal 0-[address] [facility] Comment on above: Order Comment: Name Collection Type:: Clean-Voided Midstream Result Comment: PERF ORMED BY: [place] [address] PATHOLOGIST [employer] GUIDO ELIZALDE M.D. Performed By: #### G LULS #### Point of Care testing , Ketones Ql (U) Negative Normal Negative [facility] Comment on above: Order Comment: Name Collection Type:: Clean-Voided Midstream Performed By: #### G LULS #### Point of Care testing , Leukocyte esterase Test strip Ql (U) 2+ High Negative [facility] Comment on above: Order Comment: Name Collection Type:: Clean-Voided Midstream Performed By: #### G LULS #### Point of Care testing , Nitrite,Urine Negative Normal Negative [facility] Comment on above: Order Comment: Name Collection Type:: Clean-Voided Midstream Performed By: #### G LULS #### Point of Care testing , Occult Blood,Urine 2+ High Negative [facility] Comment on above: Order Comment: Name Collection Type:: Clean-Voided Midstream Result Comment: PERF ORMED BY: [facility] [place] [address] PATHOLOGIST [employer] GUIDO ELIZALDE M.D. Performed By: #### G LULS #### Point of Care testing , pH (U) 5.5 [pH] Normal 5.0-9.0 [facility] Comment on above: Order Comment: Name Collection Type:: Clean-Voided Midstream Performed By: #### G LULS #### Point of Care testing , Protein,Urine Negative Normal Negative [facility] Comment on above: Order Comment: Name Collection Type:: Clean-Voided Midstream Performed By: #### G LULS #### Point of Care testing , RBC,Urine 10-19 High 0-4 [facility] Comment on above: Order Comment: Name Collection Type:: Clean-Voided Midstream Performed By: #### G LULS #### Point of Care testing , Specificy [place],Urine 1.012 Normal 1.001-1.030 [facility] Comment on above: Order Comment: Name Collection Type:: Clean-Voided Midstream Performed By: #### G LULS #### Point of Care testing , Squamous Epithelial Cell,Urine 0-1 Normal 0-2 [facility] Comment on above: Order Comment: Name Collection Type:: Clean-Voided Midstream Performed By: #### G LULS #### Point of Care testing , Urobilinogen,Urine Normal Normal Normal [facility] Comment on above: Order Comment: Name Collection Type:: Clean-Voided Midstream Performed By: #### G LULS #### Point of Care testing , WBC,Urine 5-9 High 0-4 [facility] Comment on above: Order Comment: Name Collection Type:: Clean-Voided Midstream Performed By: #### G INOCENTE #### Point of Care testing , Glucose Poct Glucometerson 0 03-27-2022 Glucose [Mass/Vol] 164 mg/dL Normal [facility] Comment on above: Result Comment: [place] om Glucose Reference Range is dependent on time and content of last meal. Glucose of more than 200 mg/dL in a nonstressed, ambulatory subject supports the diagnosis of Diabetes Mellitus. PERFORMED BY: [place] [address] PATHOLOGIST [employer] GUIDO ELIZALDE M.D. Performed By: #### C BC, PT, PTT, CMP #### [address] Glucose [Mass/Vol] 222 mg/dL Normal [facility] Comment on above: Result Comment: [place] om Glucose Reference Range is dependent on time and content of last meal. Glucose of more than 200 mg/dL in a nonstressed, ambulatory subject supports the diagnosis of Diabetes Mellitus. PERFORMED BY: [place] [address] PATHOLOGIST [employer] GUIDO ELIZALDE M.D. Performed By: #### C BC, PT, PTT, CMP #### [address] Glucose [Mass/Vol] 256 mg/dL Normal [facility] Comment on above: Result Comment: [place] om Glucose Reference Range is dependent on time and content of last meal. Glucose of more than 200 mg/dL in a nonstressed, ambulatory subject supports the diagnosis of Diabetes Mellitus. PERFORMED BY: [place] [address] PATHOLOGIST [employer] GUIDO ELIZALDE M.D. Performed By: #### C BC, PT, PTT, CMP #### [place] [address] [place] Glucose [Mass/Vol] 202 mg/dL Normal [facility] Comment on above: Result Comment: [place] om Glucose Reference Range is dependent on time and content of last meal. Glucose of more than 200 mg/dL in a nonstressed, ambulatory subject supports the diagnosis of Diabetes Mellitus. PERFORMED BY: [place] [address] PATHOLOGIST [employer] GUIDO ELIZALDE M.D. Performed By: #### C BC, PT, PTT, CMP #### [address] Ketones Auto test strip (U) [Mass/Vol]Ordered By: Kieran Tyler on 03-27-2022 Ketones (U) [Mass/Vol] Negative Negative Fi [facility] - UrinalysisOrder ed By: Kieran Tyler on 03-27-2022 Hyaline casts LM Ql (Urine sed) None seen [LPF] 0-8 [facility] Nitrite Test strip Ql (U)Ord ered By: Kieran Tyler on 03-27-2022 Nitrite Ql (U) Negative Negative [facility] Protein Auto test strip (U) [Mass/Vol]Ordered By: Kieran Tyler on 03-27-2022 Protein (U) [Mass/Vol] Negative Negative [facility] Specific gravity Auto test s trip (U) [Rel density]Ordered By: Kieran Tyler on 03-27-2022 Specific gravity (U) [Rel density] 1.012 1.001-1.030 [facility] Squamous epithelial cells de tection in urine sediment by light microscopyOrdered By: Kieran Scott on 03-27-2022 Epithelial cells.squamous LM Ql (Urine sed) 0-1 [HPF] 0-2 [facility] Urine Cultureon 03-27-2022 Bacteria identified Cx Nom (U) 75,000 colonies/ml mixed bacterial skin contaminants 2 Days PERFORMED BY: [facility] [address] [place] [address] PATHOLOGIST [employer] GUIDO ELIZALDE M.D. Normal [facility] Comment on above: Performed By: #### G LULS #### Point of Care testing , Urine bacteria detection by automated methodOrdered By: Kieran Scott on 03-27-2022 Bacteria Auto Ql (U) None seen None Seen [facility] Urine clarity by refractomet ry automatedOrdered By: Kieran Scott on 03-27-2022 Clarity Refractometry automated (U) Clear Clear [facility] Urine culture routineOrdered By: Kieran Scott on 03-27-2022 Bacteria identified Cx Nom (U) 2 Days [facility] Urine glucose measurement by automated test strip (mass/volume)Ordered By: Kieran Scott on 03-27-2022 Glucose Auto test strip (U) [Mass/Vol] 500 mg/dL Normal [facility] Urine hemoglobin detection b y automated test stripOrdered By: Kieran Scott on 03-27-2022 Hemoglobin Auto test strip Ql (U) 2+ Negative [facility] Urine leukocyte esterase det ection by automated test stripOrdered By: Kieran Scott on 03-27-2022 Leukocyte esterase Auto test strip Ql (U) 2+ Negative [facility] Urobilinogen Auto test strip (U) [Mass/Vol]Ordered By: Kieran Scott on 03-27-2022 Urobilinogen (U) [Mass/Vol] Normal mg/dL Normal [facility] pH Auto test strip (U)Ordere d By: Kieran Scott on 03-27-2022 pH (U) 5.5 [pH] 5.0-9.0 [facility] Glucose Poct Glucometerson 0 03-26-2022 Commemt1 Glu2: Cleaned Meter [facility] Comment on above: Result Comment: PERF ORMED BY: [facility] [address] [place] [address] PATHOLOGIST [employer] GUIDO ELIZALDE M.D. Performed By: #### G LULS #### Point of Care testing , Glucose [Mass/Vol] 263 mg/dL Normal [facility] Comment on above: Result Comment: [facility] Glucose Reference Range is dependent on time and content of last meal. Glucose of more than 200 mg/dL in a nonstressed, ambulatory subject supports the diagnosis of Diabetes Mellitus. Performed By: #### G LULS #### Point of Care testing , Commemt1 Glu2: Cleaned Meter Normal [facility] Comment on above: Result Comment: PERF ORMED BY: [place] [address] PATHOLOGIST [employer] GUIDO ELIZALDE M.D. Performed By: #### C BC, PT, PTT, CMP #### [place] [id number] [facility] Glucose [Mass/Vol] 232 mg/dL Normal [facility] Comment on above: Result Comment: [place] [facility] Glucose Reference Range is dependent on time and content of last meal. Glucose of more than 200 mg/dL in a nonstressed, ambulatory subject supports the diagnosis of Diabetes Mellitus. Performed By: #### C BC, PT, PTT, CMP #### [address] Commemt1 Glu2: Cleaned Meter [facility] Comment on above: Result Comment: PERF ORMED BY: [place] [address] PATHOLOGIST [employer] GUIDO ELIZALDE M.D. Performed By: #### C BC, PT, PTT, CMP #### [place] [address] [place] Glucose [Mass/Vol] 283 mg/dL Normal [facility] Comment on above: Result Comment: [place] Glucose Reference Range is dependent on time and content of last meal. Glucose of more than 200 mg/dL in a nonstressed, ambulatory subject supports the diagnosis of Diabetes Mellitus. Performed By: #### C BC, PT, PTT, CMP #### [address] Commemt1 Glu2: Cleaned Meter [facility] Comment on above: Result Comment: PERF ORMED BY: [place] [address] PATHOLOGIST [employer] GUIDO ELIZALDE M.D. Performed By: #### C BC, PT, PTT, CMP #### [place] [address] [place] Glucose [Mass/Vol] 191 mg/dL Normal [facility] Comment on above: Result Comment: [place] Glucose Reference Range is dependent on time and content of last meal. Glucose of more than 200 mg/dL in a nonstressed, ambulatory subject supports the diagnosis of Diabetes Mellitus. Performed By: #### C BC, PT, PTT, CMP #### [facility] [address] [place] [address] [place] Dipstick and Microscopicon 0 03-25-2022 Appearance (U) Clear Normal Clear [facility] Comment on above: Order Comment: Name Collection Type:: Claire Catheter Performed By: #### C BC, PT, PTT, CMP #### [facility] [address] [place] [address] [place] Bacteria,Urine None Seen Normal None Seen [facility] Comment on above: Order Comment: Name Collection Type:: Claire Catheter Performed By: #### C BC, PT, PTT, CMP #### [facility] [address] [place] [address] [place] Bilirubin,Urine Negative Normal Negative [facility] Comment on above: Order Comment: Name Collection Type:: Claire Catheter Performed By: #### C BC, PT, PTT, CMP #### [facility] [address] [place] [address] [place] Color (U) Yellow Normal Yellow [facility] Comment on above: Order Comment: Name Collection Type:: Claire Catheter Performed By: #### C BC, PT, PTT, CMP #### [facility] [address] [place] [address] [place] Glucose Ql (U) Normal Normal Normal [facility] Comment on above: Order Comment: Name Collection Type:: Claire Catheter Performed By: #### C BC, PT, PTT, CMP #### [facility] [address] [place] [address] [place] Hyaline Casts,Urine 0-8 Normal 0-[address] [facility] Comment on above: Order Comment: Name Collection Type:: Claire Catheter Result Comment: PERF ORMED BY: [place] [address] PATHOLOGIST [employer] GUIDO ELIZALDE M.D. Performed By: #### C BC, PT, PTT, CMP #### [facility] [address] [place] [address] [place] Ketones Ql (U) Negative Normal Negative [facility] Comment on above: Order Comment: Name Collection Type:: Claire Catheter Performed By: #### C BC, PT, PTT, CMP #### [facility] [address] Leukocyte esterase Test strip Ql (U) 3+ High Negative [facility] Comment on above: Order Comment: Name Collection Type:: Claire Catheter Performed By: #### C BC, PT, PTT, CMP #### [facility] [address] [place] [address] [place] Nitrite,Urine Negative Normal Negative [facility] Comment on above: Order Comment: Name Collection Type:: Claire Catheter Performed By: #### C BC, PT, PTT, CMP #### [address] Occult Blood,Urine 3+ High Negative [facility] Comment on above: Order Comment: Name Collection Type:: Claire Catheter Result Comment: PERF ORMED BY: [place] [address] PATHOLOGIST [employer] GUIDO ELIZALDE M.D. Performed By: #### C BC, PT, PTT, CMP #### [address] pH (U) 6.0 [pH] Normal 5.0-9.0 [facility] Comment on above: Order Comment: Name Collection Type:: Claire Catheter Performed By: #### C BC, PT, PTT, CMP #### [facility] [address] [place] [address] [place] Protein (U) [Mass/Vol] 30 mg/dL High Negative [facility] Comment on above: Order Comment: Name Collection Type:: Claire Catheter Performed By: #### C BC, PT, PTT, CMP #### [place] [address] [place] RBC,Urine Innumerable High 0-4 [facility] Comment on above: Order Comment: Name Collection Type:: Claire Catheter Performed By: #### C BC, PT, PTT, CMP #### [facility] [address] [place] [address] Specificy [place],Urine 1.024 Normal 1.001-1.030 [facility] Comment on above: Order Comment: Name Collection Type:: Claire Catheter Performed By: #### C BC, PT, PTT, CMP #### [address] Squamous Epithelial Cell,Urine 0-1 Normal 0-2 [facility] Comment on above: Order Comment: Name Collection Type:: Claire Catheter Performed By: #### C BC, PT, PTT, CMP #### [address] Urobilinogen,Urine Normal Normal Normal [facility] Comment on above: Order Comment: Name Collection Type:: Claire Catheter Performed By: #### C BC, PT, PTT, CMP #### [address] WBC,Urine 20-49 High 0-4 [facility] Comment on above: Order Comment: Name Collection Type:: Claire Catheter Performed By: #### C BC, PT, PTT, CMP #### [address] Glucose Poct Glucometerson 0 03-25-2022 Glucose [Mass/Vol] 267 mg/dL Normal [facility] Comment on above: Result Comment: [facility] Glucose Reference Range is dependent on time and content of last meal. Glucose of more than 200 mg/dL in a nonstressed, ambulatory subject supports the diagnosis of Diabetes Mellitus. PERFORMED BY: [place] [address] PATHOLOGIST [employer] GUIDO ELIZALDE M.D. Performed By: #### C BC, PT, PTT, CMP #### [address] Commemt1 Glu2: Cleaned Meter Normal [facility] Comment on above: Result Comment: PERF ORMED BY: [facility] [address] [place] [address] PATHOLOGIST [employer] GUIDO ELIZALDE M.D. Performed By: #### C BC, PT, PTT, CMP #### [address] Glucose [Mass/Vol] 190 mg/dL Normal [facility] Comment on above: Result Comment: [place] [facility] Glucose Reference Range is dependent on time and content of last meal. Glucose of more than 200 mg/dL in a nonstressed, ambulatory subject supports the diagnosis of Diabetes Mellitus. Performed By: #### C BC, PT, PTT, CMP #### [address] Commemt1 Glu2: Cleaned Meter [facility] Comment on above: Result Comment: PERF ORMED BY: [place] [address] PATHOLOGIST F[employer]ER GUIDO ELIZALDE M.D. Performed By: #### C BC, PT, PTT, CMP #### [place] [address] [place] Glucose [Mass/Vol] 192 mg/dL Normal [facility] Comment on above: Result Comment: [place] [facility] Glucose Reference Range is dependent on time and content of last meal. Glucose of more than 200 mg/dL in a nonstressed, ambulatory subject supports the diagnosis of Diabetes Mellitus. Performed By: #### C BC, PT, PTT, CMP #### [address] Commemt1 Glu2: Cleaned Meter [facility] Comment on above: Result Comment: PERF ORMED BY: [place] [address] PATHOLOGIST F[employer] GUIDO ELIZALDE M.D. Performed By: #### C BC, PT, PTT, CMP #### [address] Glucose [Mass/Vol] 146 mg/dL Normal [facility] Comment on above: Result Comment: [place] [facility] Glucose Reference Range is dependent on time and content of last meal. Glucose of more than 200 mg/dL in a nonstressed, ambulatory subject supports the diagnosis of Diabetes Mellitus. Performed By: #### C BC, PT, PTT, CMP #### [facility] [address] Urine Cultureon 03-25-2022 Bacteria identified Cx Nom (U) Urine Culture Results 75,000 colonies/ml Mixed Bacterial Skin Contaminants 2 Days PERFORMED BY: [place] [address] PATHOLOGIST [employer] GUIDO ELIZALDE M.D. [facility] Comment on above: Performed By: #### C BC, PT, PTT, CMP #### [address] Basic Metabolic Panelon 03-09 Calcium [Mass/Vol] 9.0 mg/dL Normal 8.2-10.2 [facility] Comment on above: Performed By: #### C BC, PT, PTT, CMP #### [address] Chloride [Moles/Vol] 102 mmol/L Normal 95-114 [facility] Comment on above: Performed By: #### C BC, PT, PTT, CMP #### [address] CO2 [Moles/Vol] 24.3 mmol/L Normal 22.0-30.0 [facility] Comment on above: Performed By: #### C BC, PT, PTT, CMP #### [address] Creatinine [Mass/Vol] 1.00 mg/dL Normal 0.44-1.03 [facility] Comment on above: Performed By: #### C BC, PT, PTT, CMP #### [place] [address] [place] Creatinine Clr Calc Pharmacy 42.78 [facility] Comment on above: Result Comment: PERF ORMED BY: [address] [address] PATHOLOGIST F[employer] GUIDO ELIZALDE M.D. Performed By: #### C BC, PT, PTT, CMP #### [address] Estimated GFR ( Froylan > 60 [facility] Comment on above: Result Comment: GFR estimated reference range: According to KDOQI guidelines, <60 ml/min/1.73m2 is sufficient to diagnose a patient with chronic kidney disease. Performed By: #### C BC, PT, PTT, CMP #### [facility] [address] Estimated GFR (Non- Am 53 [facility] Comment on above: Performed By: #### C BC, PT, PTT, CMP #### [address] Glucose [Mass/Vol] 351 mg/dL High 70-100 [facility] Comment on above: Result Comment: [place] [facility] Glucose Reference Range is dependent on time and content of last meal. Glucose of more than 200 mg/dL in a nonstressed, ambulatory subject supports the diagnosis of Diabetes Mellitus. ADA recommended reference range Performed By: #### C BC, PT, PTT, CMP #### [address] Potassium [Moles/Vol] 4.6 mmol/L Normal 3.5-5.1 [facility] Comment on above: Performed By: #### C BC, PT, PTT, CMP #### [address] Sodium [Moles/Vol] 137 mmol/L Normal 136-146 [facility] Comment on above: Performed By: #### C BC, PT, PTT, CMP #### [facility] [address] Urea nitrogen [Mass/Vol] 30 mg/dL High 9-23 [facility] Comment on above: Performed By: #### C BC, PT, PTT, CMP #### [facility] [address] [place] [address] [place] COVID-19 FRMCon 03-24-2022 SARS-CoV-2 (COVID-19) RNA HARMONY+probe Ql (Unsp spec) Negative Normal Negative [facility] Comment on above: Order Comment: Healt hcare Worker?: N Result Comment: Testing for SARS-CoV-2 by RT-PCR This test was developed and its performance characteristics determined by [employer] ([place]) and validated at the [facility]. This test has not been FDA [...] is terminated or revoked sooner. PERFORMED BY: [facility] [address] [place] [address] PATHOLOGIST F[employer]ER GUIDO ELIZALDE M.D. Performed By: #### G LUMARKUS #### Point of Care testing , COVID-19 Positive/NegativeOr dered By: Howard Stauffer on 03-24-2022 SARS-CoV-2 (COVID-19) N gene HARMONY+probe Ql (Resp) Negative Negative [facility] Comment on above: Testing for SARS-CoV -2 by RT-PCR This test was developed and its performance characteristics determined by [employer] [place] and validated at the [facility]. This test has not been FDA [...] Basophils (Bld) [#/Vol] 0.0 10*3/uL Normal 0.0-0.2 [facility] Comment on above: Result Comment: PERF ORMED BY: [place] [address] PATHOLOGIST F[employer] P[employer]ER GUIDO ELIZALDE M.D. Performed By: #### C BC, PT, PTT, CMP #### [address] Basophils/100 WBC (Bld) 0.1 % Normal . [facility] Comment on above: Performed By: #### C BC, PT, PTT, CMP #### [address] Eosinophils (Bld) [#/Vol] 0.0 10*3/uL Normal 0.0-0.45 [facility] Comment on above: Performed By: #### C BC, PT, PTT, CMP #### [address] Eosinophils/100 WBC (Bld) 0.0 % Normal . [facility] Comment on above: Performed By: #### C BC, PT, PTT, CMP #### [facility] [address] [place] [address] Erythrocyte distribution width (RBC) [Ratio] 13.5 % Normal 11.9-15.3 [facility] Comment on above: Performed By: #### C BC, PT, PTT, CMP #### [address] Hematocrit (Bld) [Volume fraction] 41.1 % Normal 34.0-46.4 [facility] Comment on above: Performed By: #### C BC, PT, PTT, CMP #### [address] Hemoglobin (Bld) [Mass/Vol] 13.5 g/dL Normal 11.8-15.4 [facility] Comment on above: Performed By: #### C BC, PT, PTT, CMP #### [address] Lymphocytes (Bld) [#/Vol] 0.8 10*3/uL Low 1.00-4.8 [facility] Comment on above: Performed By: #### C BC, PT, PTT, CMP #### [address] Lymphocytes/100 WBC (Bld) 11.1 % Normal . [facility] Comment on above: Performed By: #### C BC, PT, PTT, CMP #### [address] MCH (RBC) [Entitic mass] 30.0 pg Normal 24.7-34.3 [facility] Comment on above: Performed By: #### C BC, PT, PTT, CMP #### [address] MCV (RBC) [Entitic vol] 91.0 fL Normal 80-100 [facility] Comment on above: Performed By: #### C BC, PT, PTT, CMP #### [address] Mean Corpuscular HGB Conc 33.0 g/dL Normal 32.0-35.0 [facility] Comment on above: Performed By: #### C BC, PT, PTT, CMP #### [address] Monocytes (Bld) [#/Vol] 0.1 10*3/uL Normal 0.0-0.8 [facility] Comment on above: Performed By: #### C BC, PT, PTT, CMP #### [facility] [address] [place] [address] [place] Monocytes/100 WBC (Bld) 0.8 % Normal . [facility] Comment on above: Performed By: #### C BC, PT, PTT, CMP #### [facility] [address] [place] [address] [place] Neutrophils (Bld) [#/Vol] 6.6 10*3/uL Normal 1.8-7.7 [facility] Comment on above: Performed By: #### C BC, PT, PTT, CMP #### [facility] [address] [place] [address] [place] Neutrophils/100 WBC (Bld) 88.0 % Normal . [facility] Comment on above: Performed By: #### C BC, PT, PTT, CMP #### [facility] [address] [place] [address] [place] Nucleated RBC/100 WBC (Bld) [Ratio] 0.0 % Normal 0-0.5 [facility] Comment on above: Performed By: #### C BC, PT, PTT, CMP #### [facility] [address] [place] [address] [place] Platelet mean volume (Bld) [Entitic vol] 8.1 fL Normal 6.3-10.7 [facility] Comment on above: Performed By: #### C BC, PT, PTT, CMP #### [facility] [address] [place] [address] [place] Platelets (Bld) [#/Vol] 252 10*3/uL Normal 150-450 [facility] Comment on above: Performed By: #### C BC, PT, PTT, CMP #### [facility] [address] [place] [address] [place] RBC (Bld) [#/Vol] 4.52 10*6/uL Normal 3.60-5.[address] [facility] Comment on above: Performed By: #### C BC, PT, PTT, CMP #### [facility] [address] [place] [address] [place] WBC (Bld) [#/Vol] 7.5 10*3/uL Normal 4.5-11.0 [facility] Comment on above: Performed By: #### C BC, PT, PTT, CMP #### [facility] [address] [place] [address] [place] Glucose Glucometer (BldC) [M ass/Vol]Ordered By: Perlita Gautam on 03-24-2022 Glucose [Mass/Vol] 218 mg/dL [facility] Comment on above: Random Glucose Refer ence Range is dependent on time and content of last meal. Glucose of more than 200 mg/dL in a nonstressed, ambulatory subject supports the diagnosis of Diabetes Mellitus. Glucose Poct Glucometerson 0 03-24-2022 Glucose [Mass/Vol] 224 mg/dL Normal [facility] Comment on above: Result Comment: [place] [facility] Glucose Reference Range is dependent on time and content of last meal. Glucose of more than 200 mg/dL in a nonstressed, ambulatory subject supports the diagnosis of Diabetes Mellitus. PERFORMED BY: [place] [address] PATHOLOGIST F[employer] GUIDO ELIZALED M.D. Performed By: #### C BC, PT, PTT, CMP #### [address] Commemt1 Glu2: Cleaned Meter [facility] Comment on above: Result Comment: PERF ORMED BY: [place] [address] PATHOLOGIST F[employer] GUIDO ELIZALDE M.D. Performed By: #### C BC, PT, PTT, CMP #### [address] Glucose [Mass/Vol] 306 mg/dL Normal [facility] Comment on above: Result Comment: [place] Glucose Reference Range is dependent on time and content of last meal. Glucose of more than 200 mg/dL in a nonstressed, ambulatory subject supports the diagnosis of Diabetes Mellitus. Performed By: #### C BC, PT, PTT, CMP #### [facility] [address] [place] [id number] [facility] Commemt1 Glu2: Cleaned Meter Normal [facility] Comment on above: Result Comment: PERF ORMED BY: [place] [address] PATHOLOGIST F[employer] GUIDO ELIZALDE M.D. Performed By: #### C BC, PT, PTT, CMP #### [address] Glucose [Mass/Vol] 392 mg/dL Normal [facility] Comment on above: Result Comment: [place] Glucose Reference Range is dependent on time and content of last meal. Glucose of more than 200 mg/dL in a nonstressed, ambulatory subject supports the diagnosis of Diabetes Mellitus. Performed By: #### C BC, PT, PTT, CMP #### [address] Glucose [Mass/Vol] 277 mg/dL Normal [facility] Comment on above: Result Comment: [place] Glucose Reference Range is dependent on time and content of last meal. Glucose of more than 200 mg/dL in a nonstressed, ambulatory subject supports the diagnosis of Diabetes Mellitus. PERFORMED BY: [place] [address] PATHOLOGIST F[employer] GUIDO ELIZALDE M.D. Performed By: #### C BC, PT, PTT, CMP #### [address] [address] Glucose [Mass/Vol] 218 mg/dL Normal [facility] Comment on above: Result Comment: [place] Glucose Reference Range is dependent on time and content of last meal. Glucose of more than 200 mg/dL in a nonstressed, ambulatory subject supports the diagnosis of Diabetes Mellitus. PERFORMED BY: [place] [address] PATHOLOGIST F[employer] P[employer] GUIDO ELIZALDE M.D. Performed By: #### C BC, PT, PTT, CMP #### [address] [address] [facility] Laboratory - Microbiology an d Antimicrobial susceptibilityOrdered By: Howard Stauffer on 03-24-2022 SARS-CoV-2 (COVID-19) RNA HARMONY+probe Ql (Unsp spec) N/A [facility] Activated partial thrombopla stin time (aPTT) in platelet poor plasma by coagulation aOrdered By: Howard Stauffer on 03-23-2022 aPTT Coag (PPP) [Time] 32.2 s 25.1-36.5 [facility] Albumin [Mass/volume] in Ser um or PlasmaOrdered By: Howard Stauffer on 03-23-2022 Albumin [Mass/Vol] 3.6 g/dL 3.2-5.5 [facility] Basophils Auto (Bld) [#/Vol] Ordered By: Howard Stauffer on 03-23-2022 Basophils (Bld) [#/Vol] 0.1 10*3/uL 0.0-0.2 [facility] Basophils/100 WBC Auto (Bld) Ordered By: Howard Stauffer on 03-23-2022 Basophils/100 WBC (Bld) 0.6 % [facility] Bilirubin Test strip Ql (U)O rdered By: Howard Stauffer on 03-23-2022 Bilirubin Ql (U) Negative Negative [facility] Blood hemoglobin measurement (mass/volume)Ordered By: Howard Stauffer on 03-23-2022 Hemoglobin (Bld) [Mass/Vol] 14.3 g/dL 11.8-15.4 [facility] Blood leukocytes automated c ount (number/volume)Ordered By: Howard Stauffer on 03-23-2022 WBC (Bld) [#/Vol] 8.6 10*3/uL 4.5-11.0 [facility] COVID-19 Antigenon 2 COVID-19 Antigen Healthcare Worker?: [...] developed and its performance characteristic determined by [employer] and validated at [facility]. This test has not been FDA [...] for SARS Antigen by DRAKE PERFORMED BY: [place] [address] PATHOLOGIST [employer] GUIDO ELIZALDE M.D. Normal [facility] Comment on above: Performed By: #### C BC, PT, PTT, CMP #### [address] COVID-19 SOFIAOrdered By: Jed Stauffer on 03-23-2022 SARS-CoV+SARS-CoV-2 (COVID-19) Ag IA.rapid Ql (Resp) Negative Negative [facility] Comment on above: This is a duplicate Cecily SARS Antigen (DRAKE) result to be used for statistical tracking purpose only. Color Auto (U)Ordered By: Jed Stauffer on 03-23-2022 Color (U) Yellow Yellow [facility] Complete Blood Count Auto Di ffon 03-23-2022 Basophils (Bld) [#/Vol] 0.1 10*3/uL Normal 0.0-0.2 [facility] Comment on above: Result Comment: PERF ORMED BY: [place] [address] PATHOLOGIST [employer] GUIDO ELIZALDE M.D. Performed By: #### C BC, PT, PTT, CMP #### [address] Basophils/100 WBC (Bld) 0.6 % Normal . [facility] Comment on above: Performed By: #### C BC, PT, PTT, CMP #### [address] Eosinophils (Bld) [#/Vol] 0.2 10*3/uL Normal 0.0-0.45 [facility] Comment on above: Performed By: #### C BC, PT, PTT, CMP #### [address] Eosinophils/100 WBC (Bld) 2.3 % Normal . [facility] Comment on above: Performed By: #### C BC, PT, PTT, CMP #### [address] Erythrocyte distribution width (RBC) [Ratio] 13.8 % Normal 11.9-15.3 [facility] Comment on above: Performed By: #### C BC, PT, PTT, CMP #### [address] Hematocrit (Bld) [Volume fraction] 43.4 % Normal 34.0-46.4 [facility] Comment on above: Performed By: #### C BC, PT, PTT, CMP #### [address] Hemoglobin (Bld) [Mass/Vol] 14.3 g/dL Normal 11.8-15.4 [facility] Comment on above: Performed By: #### C BC, PT, PTT, CMP #### [address] Lymphocytes (Bld) [#/Vol] 3.3 10*3/uL Normal 1.00-4.8 [facility] Comment on above: Performed By: #### C BC, PT, PTT, CMP #### [facility] [address] Lymphocytes/100 WBC (Bld) 38.7 % Normal . [facility] Comment on above: Performed By: #### C BC, PT, PTT, CMP #### [facility] [address] MCH (RBC) [Entitic mass] 29.9 pg Normal 24.7-34.3 [facility] Comment on above: Performed By: #### C BC, PT, PTT, CMP #### [facility] [address] MCV (RBC) [Entitic vol] 91.0 fL Normal 80-100 [facility] Comment on above: Performed By: #### C BC, PT, PTT, CMP #### [address] Mean Corpuscular HGB Conc 32.9 g/dL Normal 32.0-35.0 [facility] Comment on above: Performed By: #### C BC, PT, PTT, CMP #### [place] [address] [place] Monocytes (Bld) [#/Vol] 0.8 10*3/uL Normal 0.0-0.8 [facility] Comment on above: Performed By: #### C BC, PT, PTT, CMP #### [place] [address] [place] Monocytes/100 WBC (Bld) 9.2 % Normal . [facility] Comment on above: Performed By: #### C BC, PT, PTT, CMP #### [place] [address] [place] Neutrophils (Bld) [#/Vol] 4.2 10*3/uL Normal 1.8-7.7 [facility] Comment on above: Performed By: #### C BC, PT, PTT, CMP #### [place] [address] [place] Neutrophils/100 WBC (Bld) 49.2 % Normal . [facility] Comment on above: Performed By: #### C BC, PT, PTT, CMP #### [address] Nucleated RBC/100 WBC (Bld) [Ratio] 0.0 % Normal 0-0.5 [facility] Comment on above: Performed By: #### C BC, PT, PTT, CMP #### [address] Platelet mean volume (Bld) [Entitic vol] 7.8 fL Normal 6.3-10.7 [facility] Comment on above: Performed By: #### C BC, PT, PTT, CMP #### [address] Platelets (Bld) [#/Vol] 295 10*3/uL Normal 150-450 [facility] Comment on above: Performed By: #### C BC, PT, PTT, CMP #### [address] RBC (Bld) [#/Vol] 4.77 10*6/uL Normal 3.60-5.[address] [facility] Comment on above: Performed By: #### C BC, PT, PTT, CMP #### [address] WBC (Bld) [#/Vol] 8.6 10*3/uL Normal 4.5-11.0 [facility] Comment on above: Performed By: #### C BC, PT, PTT, CMP #### [address] Comprehensive Metabolic Pane sadiq 03-23-2022 Albumin [Mass/Vol] 3.6 g/dL Normal 3.2-5.5 [facility] Comment on above: Performed By: #### C BC, PT, PTT, CMP #### [address] Albumin/Globulin [Mass ratio] 1.1 {ratio} Normal [facility] Comment on above: Performed By: #### C BC, PT, PTT, CMP #### [facility] [address] [place] [address] [place] ALP [Catalytic activity/Vol] 48 U/L Normal 32-92 [facility] Comment on above: Performed By: #### C BC, PT, PTT, CMP #### [facility] [address] [place] [address] [place] ALT [Catalytic activity/Vol] 18 U/L Normal 10-60 [facility] Comment on above: Performed By: #### C BC, PT, PTT, CMP #### [facility] [address] [place] [address] [place] AST [Catalytic activity/Vol] 22 U/L Normal 10-42 [facility] Comment on above: Performed By: #### C BC, PT, PTT, CMP #### [facility] [address] [place] [address] [place] Bilirubin [Mass/Vol] 0.6 mg/dL Normal 0.3-1.2 [facility] Comment on above: Performed By: #### C BC, PT, PTT, CMP #### [facility] [address] [place] [address] [place] Calcium [Mass/Vol] 9.6 mg/dL Normal 8.2-10.2 [facility] Comment on above: Performed By: #### C BC, PT, PTT, CMP #### [facility] [address] [place] [address] [place] Chloride [Moles/Vol] 103 mmol/L Normal 95-114 [facility] Comment on above: Performed By: #### C BC, PT, PTT, CMP #### [facility] [address] [place] [address] [place] CO2 [Moles/Vol] 27.4 mmol/L Normal 22.0-30.0 [facility] Comment on above: Performed By: #### C BC, PT, PTT, CMP #### [facility] [address] [place] [address] [place] Creatinine [Mass/Vol] 0.92 mg/dL Normal 0.44-1.03 [facility] Comment on above: Performed By: #### C BC, PT, PTT, CMP #### [facility] [address] Creatinine Clr Calc Pharmacy 46.80 [facility] Comment on above: Result Comment: PERF ORMED BY: [place] [address] PATHOLOGIST [employer] GUIDO ELIZALDE M.D. Performed By: #### C BC, PT, PTT, CMP #### [facility] [address] Estimated GFR ( Froylan > 60 [facility] Comment on above: Result Comment: GFR estimated reference range: According to KDOQI guidelines, <60 ml/min/1.73m2 is sufficient to diagnose a patient with chronic kidney disease. Performed By: #### C BC, PT, PTT, CMP #### [facility] [address] Estimated GFR (Non- Am 59 [facility] Comment on above: Performed By: #### C BC, PT, PTT, CMP #### [address] Globulin (S) [Mass/Vol] 3.2 g/dL Normal [facility] Comment on above: Performed By: #### C BC, PT, PTT, CMP #### [address] Glucose [Mass/Vol] 114 mg/dL High 70-100 [facility] Comment on above: Result Comment: [place] Glucose Reference Range is dependent on time and content of last meal. Glucose of more than 200 mg/dL in a nonstressed, ambulatory subject supports the diagnosis of Diabetes Mellitus. ADA recommended reference range Performed By: #### C BC, PT, PTT, CMP #### [facility] [address] Potassium [Moles/Vol] 4.4 mmol/L Normal 3.5-5.1 [facility] Comment on above: Performed By: #### C BC, PT, PTT, CMP #### [facility] [address] [place] [address] [place] Protein [Mass/Vol] 6.8 g/dL Normal 6.1-7.9 [facility] Comment on above: Performed By: #### C BC, PT, PTT, CMP #### [facility] [address] Sodium [Moles/Vol] 141 mmol/L Normal 136-146 [facility] Comment on above: Performed By: #### C BC, PT, PTT, CMP #### [facility] [address] Urea nitrogen [Mass/Vol] 24 mg/dL High - [facility] Comment on above: Performed By: #### C BC, PT, PTT, CMP #### [facility] [address] [place] [address] [place] Creatinine and Glomerular fi ltration rate.predicted panel (S/P/Bld)Ordered By: Howard Stauffer on 03-23-2022 Creatinine [Mass/Vol] 0.92 mg/dL 0.44-1.03 [facility] ECG 12 lead ECGon 03-23-2022 ECG 12 lead ECG [facility] Main [place] [address] [place] [address] Electrocardiograph Report Signed Patient: Saeed Sarabia MR#: [id number] : 1940 Acct:[id number] Age/Sex: 81 / F ADM Date: 03/24/22 Loc: Room: [address] [place] [address] Type: DIS INOo Attending Dr: Rupert Anthony MD Ordering Provider: Howard Stauffer DO Date of Service: 03/23/22 ECG/ECG 12 [...] longer present Confirmed by Howard Stauffer DO ([id number]) on 03/24/2022 2:06:42 AM Referred By: Electronically Signed By:Howard Stauffer DO Transcribed By: MUS Signed By Howard Stauffer DO 03/24 0206 Normal [facility] Eosinophils Auto (Bld) [#/Vo l]Ordered By: Howard Stauffer on 03-23-2022 Eosinophils (Bld) [#/Vol] 0.2 10*3/uL 0.0-0.45 [facility] Eosinophils/100 WBC Auto (Bl d)Ordered By: Howard Stauffer on 03-23-2022 Eosinophils/100 WBC (Bld) 2.3 % [facility] Erythrocyte distribution wid th Auto (RBC) [Ratio]Ordered By: Howard Stauffer on 03-23-2022 Erythrocyte distribution width (RBC) [Ratio] 13.8 % 11.9-15.3 [facility] Estimated glomerular filtrat ion rate (GFR) non- AmericanOrdered By: Howard Stauffer on 03-23-2022 GFR/1.73 sq M.predicted among non-blacks MDRD (S/P/Bld) [Vol rate/Area] 59 mL/Min [facility] Globulin Calc (S) [Mass/Vol] Ordered By: Howard Stauffer on 03-23-2022 Globulin (S) [Mass/Vol] 3.2 g/dL F [facility] Hematocrit Auto (Bld) [Volum e fraction]Ordered By: Howard Stauffer on 03-23-2022 Hematocrit (Bld) [Volume fraction] 43.4 % 34.0-46.4 [facility] Ketones Auto test strip (U) [Mass/Vol]Ordered By: Howard Stauffer on 03-23-2022 Ketones (U) [Mass/Vol] Trace Negative [facility] - CoagulationOrde red By: Howard Stauffer on 03-23-2022 PT Coag (PPP) [Time] 15.7 s 9.0-12.9 [facility] Laboratory - Hematology and Cell countsOrdered By: Howard Stauffer on 03-23-2022 Nucleated RBC/100 WBC (Bld) [Ratio] 0.0 % 0-0.5 [facility] Lymphocytes Auto (Bld) [#/Vo l]Ordered By: Howard Stauffer on 03-23-2022 Lymphocytes (Bld) [#/Vol] 3.3 10*3/uL 1.00-4.8 [facility] Lymphocytes/100 WBC Auto (Bl d)Ordered By: Howard Stauffer on 03-23-2022 Lymphocytes/100 WBC (Bld) 38.7 % [facility] MCH Auto (RBC) [Entitic mass ]Ordered By: Howard Stauffer on 03-23-2022 MCH (RBC) [Entitic mass] 29.9 pg 24.7-34.3 [facility] MCHC Auto (RBC) [Mass/Vol]Or dered By: Howard Stauffer on 03-23-2022 MCHC (RBC) [Mass/Vol] 32.9 g/dL 32.0-35.0 [facility] MCV Auto (RBC) [Entitic vol] Ordered By: Howard Stauffer on 03-23-2022 MCV (RBC) [Entitic vol] 91.0 fL 80-100 [facility] Monocytes Auto (Bld) [#/Vol] Ordered By: Howard Stauffer on 03-23-2022 Monocytes (Bld) [#/Vol] 0.8 10*3/uL 0.0-0.8 [facility] Monocytes/100 WBC Auto (Bld) Ordered By: Howard Stauffer on 03-23-2022 Monocytes/100 WBC (Bld) 9.2 % [facility] Neutrophils Auto (Bld) [#/Vo l]Ordered By: Howard Stauffer on 03-23-2022 Neutrophils (Bld) [#/Vol] 4.2 10*3/uL 1.8-7.7 [facility] Neutrophils/100 WBC Auto (Bl d)Ordered By: Howard Stauffer on 03-23-2022 Neutrophils/100 WBC (Bld) 49.2 % [facility] Nitrite Test strip Ql (U)Ord ered By: Howrad Stauffer on 03-23-2022 Nitrite Ql (U) Negative Negative [facility] No Panel InformationOrdered By: Howard Stauffer on 03-23-2022 Estimated GFR () > 60 mL/Min [facility] Comment on above: GFR estimated refere nce range: According to KDOQI guidelines, <60 ml/min/1.73m2 is sufficient to diagnose a patient with chronic kidney disease. Pharmacy Creatinine Clearance (Chem 46.80 [facility] SARS Antigen (LFIA) [facility] SARS Antigen (LFIA) [facility] Partial Thromboplastin Timeo n 03-23-2022 aPTT Coag (Bld) [Time] 32.2 s Normal 25.1-36.5 Fi [facility] Comment on above: Result Comment: PERF ORMED BY: [place] [address] PATHOLOGIST [employer] GUIDO ELIZALDE M.D. Performed By: #### C BC, PT, PTT, CMP #### [address] Platelet mean volume Auto (B ld) [Entitic vol]Ordered By: Howard Stauffer on 03-23-2022 Platelet mean volume (Bld) [Entitic vol] 7.8 fL 6.3-10.7 [facility] Platelet poor plasma interna tional normalized ratio (INR) by coagulation assay (relatOrdered By: Howard Stauffer on 03-23-2022 INR Coag (PPP) [Relative time] 1.4 {INR} [facility] Comment on above: INR Therapeutic Rang [...] 03-23-2022 Platelets (Bld) [#/Vol] 295 10*3/uL 150-450 [facility] Protein Auto test strip (U) [Mass/Vol]Ordered By: Howard Stauffer on 03-23-2022 Protein (U) [Mass/Vol] Negative Negative Fi [facility] Protein [Mass/volume] in Ser um or PlasmaOrdered By: Howard Stauffer on 03-23-2022 Protein [Mass/Vol] 6.8 g/dL 6.1-7.9 [facility] Prothrombin Time INRon 03-23 INR Coag (PPP) [Relative time] 1.4 {INR} Normal [facility] Comment on above: Result Comment: INR [...] #### C BC, PT, PTT, CMP #### [facility] [address] PT Coag (PPP) [Time] 15.7 s High 9.0-12.9 [facility] Comment on above: Performed By: #### C BC, PT, PTT, CMP #### [facility] [address] RBC Auto (Bld) [#/Vol]Ordere d By: Howard Stauffer on 03-23-2022 RBC (Bld) [#/Vol] 4.77 10*6/uL 3.60-5.[address] [facility] Serum or plasma alanine [place] otransferase measurement without P-5'-P (enzymatic activiOrdered By: Howard Stauffer on 03-23-2022 ALT No additional P-5'-P [Catalytic activity/Vol] 18 U/L 10-60 [facility] Serum or plasma albumin/glob ulin mass ratioOrdered By: Howard Stauffer on 03-23-2022 Albumin/Globulin [Mass ratio] 1.1 {ratio} [facility] Serum or plasma alkaline dolly sphatase measurement (enzymatic activity/volume)Ordered By: Howard Stauffer on 03-23-2022 ALP [Catalytic activity/Vol] 48 U/L 32-92 [facility] Serum or plasma aspartate am inotransferase measurement (enzymatic activity/volume)Ordered By: Howard Stauffer on 03-23-2022 AST [Catalytic activity/Vol] 22 U/L 10-42 [facility] Serum or plasma calcium nakul urement (mass/volume)Ordered By: Howard Stauffer on 03-23-2022 Calcium [Mass/Vol] 9.6 mg/dL 8.2-10.2 [facility] Serum or plasma chloride juliana surement (moles/volume)Ordered By: Howard Stauffer on 03-23-2022 Chloride [Moles/Vol] 103 mmol/L 95-114 [facility] Serum or plasma glucose nakul urement (mass/volume)Ordered By: Howard Stauffer on 03-23-2022 Glucose [Mass/Vol] 114 mg/dL 70-100 [facility] Comment on above: ADA recommended refe rence range Random Glucose Reference Range is dependent on time and content of last meal. Glucose of more than 200 mg/dL in a nonstressed, ambulatory subject supports the diagnosis of Diabetes Mellitus. Serum or plasma potassium me asurement (moles/volume)Ordered By: Howard Stauffer on 03-23-2022 Potassium [Moles/Vol] 4.4 mmol/L 3.5-5.1 [facility] Serum or plasma sodium measu rement (moles/volume)Ordered By: Howard Stauffer on 03-23-2022 Sodium [Moles/Vol] 141 mmol/L 136-146 [facility] Serum or plasma total biliru bin measurement (mass/volume)Ordered By: Howard Stauffer on 03-23-2022 Bilirubin [Mass/Vol] 0.6 mg/dL 0.3-1.2 [facility] Serum or plasma total carbon dioxide measurement (moles/volume)Ordered By: Howard Stauffer on 03-23-2022 CO2 [Moles/Vol] 27.4 mmol/L 22.0-30.0 [facility] Serum or plasma urea nitroge n measurement (mass/volume)Ordered By: Howard Stauffer on 03-23-2022 Urea nitrogen [Mass/Vol] 24 mg/dL 9 [facility] Cecily Ag Negativeon 03-23-20 22 Cecily Ag Negative Negative Normal Negative [facility] Comment on above: Result Comment: This is a duplicate Cecily SARS Antigen (DRAKE) result to be used for statistical tracking purpose only. PERFORMED BY: [place] [address] PATHOLOGIST [employer] GUIDO ELIZALDE M.D. Performed By: #### G INOCENTE #### Point of Care testing , Specific gravity Auto test s trip (U) [Rel density]Ordered By: Howard Stauffer on 03-23-2022 Specific gravity (U) [Rel density] 1.017 1.001-1.030 [facility] Troponin I High Sensitivityo n 03-23-2022 Troponin I High Sensitivity 6 pg/mL Normal [facility] Comment on above: Result Comment: PERF ORMED BY: [place] [address] PATHOLOGIST [employer] GUIDO ELIZALDE M.D. Performed By: #### C BC, PT, PTT, CMP #### [facility] [address] Troponin I.cardiac [Mass/vol ume] in Serum or Plasma by High sensitivity methodOrdered By: Howard Stauffer on 03-23-2022 Troponin I.cardiac High sensitivity method [Mass/Vol] 6 pg/mL 0 [facility] Urinalysison 03-23-2022 Appearance (U) Clear Normal Clear [facility] Comment on above: Order Comment: Name Collection Type:: Straight Catheter Performed By: #### U A #### [facility] [address] [place] [address] [place] Bilirubin,Urine Negative Normal Negative [facility] Comment on above: Order Comment: Name Collection Type:: Straight Catheter Performed By: #### U A #### [facility] [address] [place] [address] [place] Color (U) Yellow Normal Yellow [facility] Comment on above: Order Comment: Name Collection Type:: Straight Catheter Performed By: #### U A #### [address] Glucose Ql (U) Normal Normal Normal [facility] Comment on above: Order Comment: Name Collection Type:: Straight Catheter Performed By: #### U A #### [address] Ketones Ql (U) Trace High Negative [facility] Comment on above: Order Comment: Name Collection Type:: Straight Catheter Performed By: #### U A #### [address] Leukocyte esterase Test strip Ql (U) Negative Normal Negative [facility] Comment on above: Order Comment: Name Collection Type:: Straight Catheter Performed By: #### U A #### [address] Nitrite,Urine Negative Normal Negative [facility] Comment on above: Order Comment: Name Collection Type:: Straight Catheter Performed By: #### U A #### [address] Occult Blood,Urine Negative Normal Negative [facility] Comment on above: Order Comment: Name Collection Type:: Straight Catheter Result Comment: PERF ORMED BY: [place] [address] PATHOLOGIST [employer] GUIDO ELIZALDE M.D. Performed By: #### U A #### [place] [address] [place] pH (U) 7.5 [pH] Normal 5.0-9.0 [facility] Comment on above: Order Comment: Name Collection Type:: Straight Catheter Performed By: #### U A #### [place] [address] [place] Protein,Urine Negative Normal Negative [facility] Comment on above: Order Comment: Name Collection Type:: Straight Catheter Performed By: #### U A #### [address] Specificy [place],Urine 1.017 Normal 1.001-1.030 [facility] Comment on above: Order Comment: Name Collection Type:: Straight Catheter Performed By: #### U A #### [facility] [address] [place] [id number] [place] Urobilinogen,Urine Normal Normal Normal [facility] Comment on above: Order Comment: Name Collection Type:: Straight Catheter Performed By: #### U A #### [facility] [address] [place] [id number] [place] Urine clarity by refractomet ry automatedOrdered By: Howard Stauffer on 03-23-2022 Clarity Refractometry automated (U) Clear Clear [facility] Urine glucose measurement by automated test strip (mass/volume)Ordered By: Howard Stauffer on 03-23-2022 Glucose Auto test strip (U) [Mass/Vol] Normal mg/dL Normal [facility] Urine hemoglobin detection b y automated test stripOrdered By: Howard Stauffer on 03-23-2022 Hemoglobin Auto test strip Ql (U) Negative Negative [facility] Urine leukocyte esterase det ection by automated test stripOrdered By: Howard Stauffer on 03-23-2022 Leukocyte esterase Auto test strip Ql (U) Negative Negative [facility] Urobilinogen Auto test strip (U) [Mass/Vol]Ordered By: Howard Stauffer on 03-23-2022 Urobilinogen (U) [Mass/Vol] Normal mg/dL Normal [facility] XR chest 1V portableon 03-23 XR chest 1V portable [facility] [place] [address] [place] [id number] XRay Report Signed Patient: Saeed Sarabia MR#: [id number] : 1940 Acct:[id number] Age/Sex: 81 / F ADM Date: 03/23/22 Loc: ER Room: Type: [facility] ER Attending Dr: Copies to: Howard [...] Donny Wolf M.D.03/23/2022 8:03 PM Dictation Location: [place] [address] Transcribed By: [facility] 03/23/222002 Dictated By: Donny Wolf II, MD 03/23/222001 Signed By: 03/23/222002 Normal [facility] XR knee RT 4V*on 03-23-2022 XR knee RT 4V* [facility] Main [place] [address] [place] [address] XRay Report Signed Patient: Saeed Sarabia MR#: [id number] : 1940 Acct:[id number] Age/Sex: 81 / F ADM Date: 03/23/22 Loc: ER Room: Type: [facility] ER Attending Dr: Copies to: Howard [...] Donny Wolf M.D.03/23/2022 8:02 PM Dictation Location: [place] [address] Transcribed By: [facility] 03/23/222001 Dictated By: Donny Wolf II, MD 03/23/222000 Signed By: 03/23/222001 Normal [facility] pH Auto test strip (U)Ordere d By: Howard Stauffer on 03-23-2022 pH (U) 7.5 [pH] 5.0-9.0 [facility] Basic Metabolic Panelon Calcium [Mass/Vol] 9.6 mg/dL Normal 8.2-10.2 [facility] Comment on above: Result Comment: PERF ORMED BY: [place] [address] PATHOLOGIST [employer] GUIDO ELIZALDE M.D. Performed By: #### C BC, PT, PTT, CMP #### [facility] [address] [place] [address] [place] Chloride [Moles/Vol] 99 mmol/L Normal 95-114 [facility] Comment on above: Performed By: #### C BC, PT, PTT, CMP #### [facility] [address] [place] [address] [place] CO2 [Moles/Vol] 26.1 mmol/L Normal 22.0-30.0 [facility] Comment on above: Performed By: #### C BC, PT, PTT, CMP #### [facility] [address] [place] [address] [place] Creatinine [Mass/Vol] 1.04 mg/dL High 0.44-1.03 [facility] Comment on above: Performed By: #### C BC, PT, PTT, CMP #### [facility] [address] [place] [address] [place] Estimated GFR ( Froylan > 60 Normal [facility] Comment on above: Result Comment: GFR estimated reference range: According to KDOQI guidelines, <60 ml/min/1.73m2 is sufficient to diagnose a patient with chronic kidney disease. Performed By: #### C BC, PT, PTT, CMP #### [address] Estimated GFR (Non- Am 51 Normal [facility] Comment on above: Performed By: #### C BC, PT, PTT, CMP #### [address] Glucose [Mass/Vol] 134 mg/dL High 70-100 [facility] Comment on above: Result Comment: [facility] Glucose Reference Range is dependent on time and content of last meal. Glucose of more than 200 mg/dL in a nonstressed, ambulatory subject supports the diagnosis of Diabetes Mellitus. ADA recommended reference range Performed By: #### C BC, PT, PTT, CMP #### [address] Potassium [Moles/Vol] 4.8 mmol/L Normal 3.5-5.1 [facility] Comment on above: Performed By: #### C BC, PT, PTT, CMP #### [address] Sodium [Moles/Vol] 139 mmol/L Normal 136-146 [facility] Comment on above: Performed By: #### C BC, PT, PTT, CMP #### [address] Urea nitrogen [Mass/Vol] 21 mg/dL Normal 9-23 [facility] Comment on above: Performed By: #### C BC, PT, PTT, CMP #### [address] Basophils Auto (Bld) [#/Vol] Ordered By: Atul Vera on 03-09-2022 Basophils (Bld) [#/Vol] 0.1 10*3/uL 0.0-0.2 [facility] Basophils/100 WBC Auto (Bld) Ordered By: Atul Vera on 03-09-2022 Basophils/100 WBC (Bld) 0.8 % [facility] Blood hemoglobin measurement (mass/volume)Ordered By: Atul Vera on 03-09-2022 Hemoglobin (Bld) [Mass/Vol] 13.7 g/dL 11.8-15.4 [facility] Blood leukocytes automated c ount (number/volume)Ordered By: Atul Vera on 03-09-2022 WBC (Bld) [#/Vol] 6.4 10*3/uL 4.5-11.0 [facility] Complete Blood Count Auto Di ffon 03-09-2022 Basophils (Bld) [#/Vol] 0.1 10*3/uL Normal 0.0-0.2 [facility] Comment on above: Result Comment: PERF ORMED BY: [place] [address] PATHOLOGIST [employer] GUIDO ELIZALDE M.D. Performed By: #### C BC, PT, PTT, CMP #### [facility] [address] Basophils/100 WBC (Bld) 0.8 % Normal . [facility] Comment on above: Performed By: #### C BC, PT, PTT, CMP #### [facility] [address] [place] [address] [place] Eosinophils (Bld) [#/Vol] 0.1 10*3/uL Normal 0.0-0.45 [facility] Comment on above: Performed By: #### C BC, PT, PTT, CMP #### [place] [address] [place] Eosinophils/100 WBC (Bld) 1.9 % Normal . [facility] Comment on above: Performed By: #### C BC, PT, PTT, CMP #### [facility] [address] [place] [address] [place] Erythrocyte distribution width (RBC) [Ratio] 13.8 % Normal 11.9-15.3 [facility] Comment on above: Performed By: #### C BC, PT, PTT, CMP #### [facility] [address] Hematocrit (Bld) [Volume fraction] 41.8 % Normal 34.0-46.4 [facility] Comment on above: Performed By: #### C BC, PT, PTT, CMP #### [facility] [address] Hemoglobin (Bld) [Mass/Vol] 13.7 g/dL Normal 11.8-15.4 [facility] Comment on above: Performed By: #### C BC, PT, PTT, CMP #### [facility] [address] Lymphocytes (Bld) [#/Vol] 2.1 10*3/uL Normal 1.00-4.8 [facility] Comment on above: Performed By: #### C BC, PT, PTT, CMP #### [facility] [address] Lymphocytes/100 WBC (Bld) 32.8 % Normal . [facility] Comment on above: Performed By: #### C BC, PT, PTT, CMP #### [address] MCH (RBC) [Entitic mass] 30.2 pg Normal 24.7-34.3 [facility] Comment on above: Performed By: #### C BC, PT, PTT, CMP #### [address] MCV (RBC) [Entitic vol] 92.0 fL Normal 80-100 [facility] Comment on above: Performed By: #### C BC, PT, PTT, CMP #### [address] Mean Corpuscular HGB Conc 32.8 g/dL Normal 32.0-35.0 [facility] Comment on above: Performed By: #### C BC, PT, PTT, CMP #### [facility] [address] [place] [address] [place] Monocytes (Bld) [#/Vol] 0.5 10*3/uL Normal 0.0-0.8 [facility] Comment on above: Performed By: #### C BC, PT, PTT, CMP #### [facility] [address] [place] [address] [place] Monocytes/100 WBC (Bld) 7.6 % Normal . [facility] Comment on above: Performed By: #### C BC, PT, PTT, CMP #### [address] Neutrophils (Bld) [#/Vol] 3.7 10*3/uL Normal 1.8-7.7 [facility] Comment on above: Performed By: #### C BC, PT, PTT, CMP #### [facility] [address] Neutrophils/100 WBC (Bld) 56.9 % Normal . [facility] Comment on above: Performed By: #### C BC, PT, PTT, CMP #### [address] Nucleated RBC/100 WBC (Bld) [Ratio] 0.1 % Normal 0-0.5 [facility] Comment on above: Performed By: #### C BC, PT, PTT, CMP #### [address] Platelet mean volume (Bld) [Entitic vol] 9.0 fL Normal 6.3-10.7 [facility] Comment on above: Performed By: #### C BC, PT, PTT, CMP #### [address] Platelets (Bld) [#/Vol] 277 10*3/uL Normal 150-450 [facility] Comment on above: Performed By: #### C BC, PT, PTT, CMP #### [address] RBC (Bld) [#/Vol] 4.55 10*6/uL Normal 3.60-5.[address] [facility] Comment on above: Performed By: #### C BC, PT, PTT, CMP #### [address] WBC (Bld) [#/Vol] 6.4 10*3/uL Normal 4.5-11.0 [facility] Comment on above: Performed By: #### C BC, PT, PTT, CMP #### [facility] [address] Creatinine and Glomerular fi ltration rate.predicted panel (S/P/Bld)Ordered By: Atul Vera on 03-09-2022 Creatinine [Mass/Vol] 1.04 mg/dL 0.44-1.03 [facility] ECG 12 lead ECGon 03-09-2022 ECG 12 lead ECG [facility] Main [place] [address] [place] [address] Electrocardiograph Report Signed Patient: Saeed Sarabia MR#: [id number] : 1940 Acct:[id number] Age/Sex: 81 / F ADM Date: 03/09/22 Loc: PS Room: Type: [employer] Attending Dr: Atul Vera MD Ordering Provider: [...] Signed By Piedad Lockhart DO 03/12 Normal [facility] Eosinophils Auto (Bld) [#/Vo l]Ordered By: Atul Vera on 03-09-2022 Eosinophils (Bld) [#/Vol] 0.1 10*3/uL 0.0-0.45 [facility] Eosinophils/100 WBC Auto (Bl d)Ordered By: Atul Vera on 03-09-2022 Eosinophils/100 WBC (Bld) 1.9 % [facility] Erythrocyte distribution wid th Auto (RBC) [Ratio]Ordered By: Atul Vera on 03-09-2022 Erythrocyte distribution width (RBC) [Ratio] 13.8 % 11.9-15.3 [facility] Estimated glomerular filtrat ion rate (GFR) non- AmericanOrdered By: Atul Vera on 03-09-2022 GFR/1.73 sq M.predicted among non-blacks MDRD (S/P/Bld) [Vol rate/Area] 51 mL/Min [facility] Hematocrit Auto (Bld) [Volum e fraction]Ordered By: Atul Vera on 03-09-2022 Hematocrit (Bld) [Volume fraction] 41.8 % 34.0-46.4 [facility] Laboratory - Hematology and Cell countsOrdered By: Atul Vera on 03-09-2022 Nucleated RBC/100 WBC (Bld) [Ratio] 0.1 % 0-0.5 [facility] Lymphocytes Auto (Bld) [#/Vo l]Ordered By: Atul Vera on 03-09-2022 Lymphocytes (Bld) [#/Vol] 2.1 10*3/uL 1.00-4.8 [facility] Lymphocytes/100 WBC Auto (Bl d)Ordered By: Atul Vera on 03-09-2022 Lymphocytes/100 WBC (Bld) 32.8 % [facility] MCH Auto (RBC) [Entitic mass ]Ordered By: Atul Vera on 03-09-2022 MCH (RBC) [Entitic mass] 30.2 pg 24.7-34.3 [facility] MCHC Auto (RBC) [Mass/Vol]Or dered By: Atul Vera on 03-09-2022 MCHC (RBC) [Mass/Vol] 32.8 g/dL 32.0-35.0 [facility] MCV Auto (RBC) [Entitic vol] Ordered By: Atul Vera on 03-09-2022 MCV (RBC) [Entitic vol] 92.0 fL 80-100 [facility] Monocytes Auto (Bld) [#/Vol] Ordered By: Atul Vera on 03-09-2022 Monocytes (Bld) [#/Vol] 0.5 10*3/uL 0.0-0.8 [facility] Monocytes/100 WBC Auto (Bld) Ordered By: Atul Vera on 03-09-2022 Monocytes/100 WBC (Bld) 7.6 % [facility] Neutrophils Auto (Bld) [#/Vo l]Ordered By: Atul Vera on 03-09-2022 Neutrophils (Bld) [#/Vol] 3.7 10*3/uL 1.8-7.7 [facility] Neutrophils/100 WBC Auto (Bl d)Ordered By: Atul Vera on 03-09-2022 Neutrophils/100 WBC (Bld) 56.9 % [facility] No Panel InformationOrdered By: Atul Vera on 03-09-2022 Estimated GFR () > 60 mL/Min [facility] Comment on above: GFR estimated refere nce range: According to KDOQI guidelines, <60 ml/min/1.73m2 is sufficient to diagnose a patient with chronic kidney disease. Pharmacy Creatinine Clearance (Chem N/A [facility] Platelet mean volume Auto (B ld) [Entitic vol]Ordered By: Atul Vera on 03-09-2022 Platelet mean volume (Bld) [Entitic vol] 9.0 fL 6.3-10.7 [facility] Platelets Auto (Bld) [#/Vol] Ordered By: Atul Vera on 03-09-2022 Platelets (Bld) [#/Vol] 277 10*3/uL 150-450 [facility] RBC Auto (Bld) [#/Vol]Ordere d By: Atul Vera on 03-09-2022 RBC (Bld) [#/Vol] 4.55 10*6/uL 3.60-5.[address] [facility] Serum or plasma calcium nakul urement (mass/volume)Ordered By: Atul Vera on 03-09-2022 Calcium [Mass/Vol] 9.6 mg/dL 8.2-10.2 [facility] Serum or plasma chloride juliana surement (moles/volume)Ordered By: Atul Vera on 03-09-2022 Chloride [Moles/Vol] 99 mmol/L 95-114 [facility] Serum or plasma glucose nakul urement (mass/volume)Ordered By: Atul Vera on 03-09-2022 Glucose [Mass/Vol] 134 mg/dL 70-100 [facility] Comment on above: ADA recommended refe rence range Random Glucose Reference Range is dependent on time and content of last meal. Glucose of more than 200 mg/dL in a nonstressed, ambulatory subject supports the diagnosis of Diabetes Mellitus. Serum or plasma potassium me asurement (moles/volume)Ordered By: Atul Vera on 03-09-2022 Potassium [Moles/Vol] 4.8 mmol/L 3.5-5.1 [facility] Serum or plasma sodium measu rement (moles/volume)Ordered By: Atul Vera on 03-09-2022 Sodium [Moles/Vol] 139 mmol/L 136-146 [facility] Serum or plasma total carbon dioxide measurement (moles/volume)Ordered By: Atul Vera on 03-09-2022 CO2 [Moles/Vol] 26.1 mmol/L 22.0-30.0 [facility] Serum or plasma urea nitroge n measurement (mass/volume)Ordered By: Atul Vera on 03-09-2022 Urea nitrogen [Mass/Vol] 21 mg/dL 9-23 [facility] MRI LSFITZPATRICK WO CONon 02-19-20 22 MRI [facility] CON EXAMINATION: MRI [facility] CON HISTORY: Lumbar spondylosis with myelopathy COMPARISON: [...] by: SHEILA INIGUEZ Date: 2022-02-18 11:32 Normal [facility] US ARTERY LEG BILon 02-12-20 US ARTERY LEG HONG EXAMINATION: US FORD [...] by: SHEILA INIGUEZ Date: 2022-02-11 16:21 Normal [facility] XR LSPINE 2_3 VIEWSon 2021 XR [...] by: SHEILA INIGUEZ Date: 2022-02-11 17:09 Normal [facility] VITAMIN B12on 02-10-2022 Cobalamin (Vitamin B12) [Mass/Vol] 359 pg/mL Normal 232-1245 [facility] Comment on above: Performed By: #### V B12LC #### [facility] [address] [place] [address] [address] Adilene Koo CBC AUTO DIFFon 02-09-2022 BASO # 0.0 103/ul Normal 0.0-0.1 [facility] Comment on above: Performed By: #### C BC ####[facility] [address] [place] [address]Dr. Adilene Koo Basophils/100 WBC (Bld) 0.2 % Normal 0.2-2.0 [facility] Comment on above: Performed By: #### C BC ####[facility] [address] [place] [address]Dr. Adilene Koo EO # 0.1 103/ul Normal 0.0-0.7 [facility] Comment on above: Performed By: #### C BC ####[facility] [address] [place] [id number]. Adilene Koo Eosinophils/100 WBC (Bld) 1.5 % Normal 0.9-7.0 [facility] Comment on above: Performed By: #### C BC ####[facility] [address] [place] [id number]. Adilene Koo Erythrocyte distribution width (RBC) [Ratio] 13.2 % Normal 11.0-15.0 [facility] Comment on above: Performed By: #### C BC ####[facility] [address] [place] [address]Dr. Adilene Koo Hematocrit (Bld) [Volume fraction] 46.3 % Normal 36.0-48.0 [facility] Comment on above: Performed By: #### C BC ####[facility] [address] [place] [address]DrKen Adilene Koo Hemoglobin (Bld) [Mass/Vol] 14.1 g/dL Normal 12.0-16.0 [facility] Comment on above: Performed By: #### C BC ####[facility] [address] [place] [address]DrKen Adilene Koo IG # 0.02 10e3/ul Normal 0.00-0.03 [facility] Comment on above: Performed By: #### C BC ####[facility] [address] [place], [place] [address]DrKen Adilene Hayes IG % 0.2 % Normal 0.0-0.5 [facility] Comment on above: Performed By: #### C BC ####[facility] [address] [place], [place] [address]DrKen Adilene Hayes LYMPH # 2.4 103/ul Normal 1.2-3.8 [facility] Comment on above: Performed By: #### C BC ####[facility] [address] [place], [place] [address]DrKen Adilene Hayes Lymphocytes/100 WBC (Bld) 29.9 % Normal 20.5-60.0 [facility] Comment on above: Performed By: #### C BC ####[facility] [address] [place], [place] [address]DrKen Josephinerossy Koo MANUAL DIFF REQ NO Normal [facility] Comment on above: Performed By: #### C BC ####[facility] [address] [place], [place] [address]DrKen Adilene Hayes MCH (RBC) [Entitic mass] 29.2 pg Normal 26.7-34.0 [facility] Comment on above: Performed By: #### C BC ####[facility] [address] [place], [place] [address]DrKen Adilene Hayes MCHC (RBC) [Mass/Vol] 30.5 g/dL Normal 29.9-35.2 [facility] Comment on above: Performed By: #### C BC ####[facility] [address] [place], [place] [address]DrKen Koo MCV (RBC) [Entitic vol] 95.9 fL Normal 81.0-99.0 [facility] Comment on above: Performed By: #### C BC ####[facility] [address] [place], [place] [address]DrKen Koo MONO # 0.6 103/ul Normal 0.3-0.8 [facility] Comment on above: Performed By: #### C BC ####[facility] [address] [place], [place] [address]DrKen Koo Monocytes/100 WBC (Bld) 8.0 % Normal 1.7-12.0 [facility] Comment on above: Performed By: #### C BC ####[facility] [address] [place], [place] [address]DrKen Koo NEUT # 4.8 103/ul Normal 1.4-6.5 [facility] Comment on above: Performed By: #### C BC ####[facility] [address] [place], [place] [address]DrKen Koo Neutrophils/100 WBC (Bld) 60.2 % Normal 43.0-75.0 [facility] Comment on above: Performed By: #### C BC ####[facility] [address] [place], [place] [address]DrKen Koo Platelet mean volume (Bld) [Entitic vol] 10.9 fL Normal 9.5-13.5 [facility] Comment on above: Performed By: #### C BC ####[facility] [address] [place], [place] [address]DrKen Koo PLT 276 103/ul Normal 150-450 [facility] Comment on above: Performed By: #### C BC ####[facility] [address] [place], [place] [address]DrKen Koo RBC 4.83 106/ul Normal 4.20-5.40 [facility] Comment on above: Performed By: #### C BC ####[facility] [address] [place] [address]Dr. Adilene Koo WBC 8.0 103/ul Normal 4.0-11.0 [facility] Comment on above: Performed By: #### C BC ####[facility] [address] [place] [address]Dr. Adilene Koo FREE T3on 02-09-2022 FREE T3 2.41 pg/mlL Normal 2.18-3.98 [facility] Comment on above: Performed By: #### B MP, FT3, TSH #### [facility] [address] [place] [address] [address] Adilene Koo FREE T4on 02-09-2022 Free T4 [Mass/Vol] 1.39 ng/dL Normal 0.76-1.46 [facility] Comment on above: Performed By: #### F T4 ####[facility] [address] [place] [address]Dr. Adilene Koo GLYCOHEMOGLOBIN A1Con 2021 ADA RECOMMENDATION SEE BELOW Normal [facility] Comment on above: Result Comment: ADA RECOMMENDED LIMIT 4.0 - 6.0 ADA THERAPEUTIC TARGET < 7.0 ACTION SUGGESTED > 7.0 Performed By: #### A 1C ####[facility] [address] [address]Dr. Adilene Koo Glucose [Mass/Vol] 137 mg/dL Normal [facility] Comment on above: Performed By: #### A 1C ####[facility] [address] [place] [address]Dr. Adilene Koo HbA1c (Bld) [Mass fraction] 6.4 % Critically high 4.5-6.2 [facility] Comment on above: Performed By: #### A 1C ####[facility] [address] [place] [address]Dr. Adilene Koo PROF CHEM 8 (BAS METB)on Anion gap [Moles/Vol] 9.1 mmol/L Normal [facility] Comment on above: Performed By: #### B MP, FT3, TSH #### [facility] [address] [place] [address] [address] Adilene Koo Calcium [Mass/Vol] 9.0 mg/dL Normal 8.5-10.1 [facility] Comment on above: Performed By: #### B MP, FT3, TSH #### [facility] [address] [place] [address] [address] Adilene Koo Chloride [Moles/Vol] 105 mmol/L Normal 98-107 [facility] Comment on above: Performed By: #### B MP, FT3, TSH #### [facility] [address] [place] [address] Dr. Adilene Koo CO2 [Moles/Vol] 30.5 mmol/L Normal 21.0-32.[address] [facility] Comment on above: Performed By: #### B MP, FT3, TSH #### [facility] [address] [place] [address] Dr. Adilene Koo Creatinine [Mass/Vol] 0.93 mg/dL Normal 0.55-1.02 [facility] Comment on above: Performed By: #### B MP, FT3, TSH #### [facility] [address] [place] [address] Dr. Adilene Koo EGFR-AF [place]OU[place]ORE[place] >60 Normal >=[address] [facility] Comment on above: Performed By: #### B MP, FT3, TSH #### [facility] [address] [place] [address] Dr. Adilene Koo EGFR-NON AF [place]ORE[place] 58 mL/min/1.73m2 Critically low >=60 [facility] Comment on above: Performed By: #### B MP, FT3, TSH #### [facility] [address] [place] [address] Dr. Adilene Koo Glucose [Mass/Vol] 105 mg/dL Normal 74-106 [facility] Comment on above: Performed By: #### B MP, FT3, TSH #### [facility] [address] [place] [address] Dr. Adilene Koo Potassium [Moles/Vol] 4.6 mmol/L Normal 3.5-5.1 [facility] Comment on above: Performed By: #### B MP, FT3, TSH #### [facility] [address] [place] [address] Dr. Adilene Koo Sodium [Moles/Vol] 140 mmol/L Normal 136-145 [facility] Comment on above: Performed By: #### B MP, FT3, TSH #### [facility] [address] [place] [address] Dr. Adilene Koo Urea nitrogen [Mass/Vol] 20.0 mg/dL Critically high 7.0-18 .0 [facility] Comment on above: Performed By: #### B MP, FT3, TSH #### [facility] [address] [place] [address] Dr. Adilene Koo Urea nitrogen/Creatinine [Mass ratio] 21.5 mg/mg Normal [facility] Comment on above: Performed By: #### B MP, FT3, TSH #### [facility] [address] [place] [address] Dr. Adilene Koo TSHon 02-09-2022 TSH 0.134 uIU/mL Critically low 0.470-4.[address] [facility] Comment on above: Performed By: #### B MP, FT3, TSH #### [facility] [address] [place] [address] Dr. Adilene Koo TSH RANGE SEE BELOW Normal [facility] Comment on above: Result Comment: <0.3 4 UIU/ml HYPERTHYROID 0.34-5.60 UIU/ml EUTHYROID >5.60 UIU/ml HYPOTHYROID Performed By: #### B MP, FT3, TSH #### [facility] [address] [place] [address] Dr. Adilene Koo Vital Signs Date Time Vital Sign Value Performing Clinician Facility 05-22-2025 10:32-0400 Body mass index (BMI) [Ratio] 27.02 kg/m2 Galindo Miller [employer] Work Phone: [facility] 05-22-2025 10:32-0400 Body temperature 97.81 [degF] Galindo Aichholz [employer] Work Phone: [facility] 05-22-2025 10:32-0400 Body weight 71.4 kg Galindo Aichholz [employer] Work Phone: [facility] 05-22-2025 10:32-0400 Diastolic blood pressure 82 mm[Hg] Galindo Aichholz [employer] Work Phone: [facility] 05-22-2025 10:32-0400 Heart rate 65 /min Galindo Aichholz [employer] Work Phone: [facility] 05-22-2025 10:32-0400 Respiratory rate 18 /min Galindo Aichholz [employer] Work Phone: [facility] 05-22-2025 10:32-0400 SaO2% (BldA) [Mass fraction] 96 % Galindo Aichholz [employer] Work Phone: [facility] 05-22-2025 10:32-0400 Systolic blood pressure 118 mm[Hg] Galindo Aichholz [employer] Work Phone: [facility] 02-18-2025 10:34-0400 Body mass index (BMI) [Ratio] 27.57 kg/m2 Galindo Aichholz [employer] Work Phone: [facility] 02-18-2025 10:34-0400 Body temperature 97.81 [degF] Galindo Aichholz [employer] Work Phone: [facility] 02-18-2025 10:34-0400 Body weight 72.85 kg Galindo Aichholz [employer] Work Phone: [facility] 02-18-2025 10:34-0400 Diastolic blood pressure 70 mm[Hg] Galindo Aichholz [employer] Work Phone: [facility] 02-18-2025 10:34-0400 Heart rate 57 /min Galindo Aichholz [employer] Work Phone: [facility] 02-18-2025 10:34-0400 Respiratory rate 20 /min Galindo Miller [employer] Work Phone: [facility] 02-18-2025 10:34-0400 SaO2% (BldA) [Mass fraction] 95 % Galindo Miller [employer] Work Phone: [facility] 02-18-2025 10:34-0400 Systolic blood pressure 128 mm[Hg] Galindo Miller [employer] Work Phone: [facility] 01-17-2025 10:18-0400 Body mass index (BMI) [Ratio] 26.01 kg/m2 Dinora Pack [employer]LAST[employer] WORKER.[employer]IALS MANAGER Work Phone: [facility] 01-17-2025 10:18-0400 Body weight 73.1 kg Dinora Pack PLAST[employer] WORKER.[employer]IALS MANAGER Work Phone: [facility] 01-17-2025 10:18-0400 Diastolic blood pressure 74 mm[Hg] Dinora Pack PLASTICS WORKER.TRIALS MANAGER Work Phone: [facility] 01-17-2025 10:18-0400 Heart rate 62 /min Dinora Pack PLASTICS WORKER.TRIALS MANAGER Work Phone: [facility] 01-17-2025 10:18-0400 SaO2% (BldA) [Mass fraction] 99 % Dinora Pack PLASTICS WORKER.TRIALS MANAGER Work Phone: [facility] 01-17-2025 10:18-0400 Systolic blood pressure 167 mm[Hg] Dinora Pack PLASTICS WORKER.TRIALS MANAGER Work Phone: [facility] 12-17-2024 08:54-0400 Body height 167.6 cm Luciana Hirzel DO Work Phone: [facility] 12-17-2024 08:54-0400 Body mass index (BMI) [Ratio] 25.8 kg/m2 Luciana Hirzel DO Work Phone: [facility] 12-17-2024 08:54-0400 Body weight 72.5 kg Luciana Hirzel DO Work Phone: [facility] 12-17-2024 08:54-0400 Diastolic blood pressure 70 mm[Hg] Luciananabil Green DO Work Phone: [facility] 12-17-2024 08:54-0400 Heart rate 70 /min Luciana Sherley DO Work Phone: [facility] 12-17-2024 08:54-0400 SaO2% (BldA) [Mass fraction] 97 % Lucianafranky Green DO Work Phone: [facility] 12-17-2024 08:54-0400 Systolic blood pressure 120 mm[Hg] Luciananabil Zimmermanzel DO Work Phone: [facility] 12-03-2024 09:00-0500 Body mass index (BMI) [Ratio] 26.67 kg/m2 Galindo Aichholz CURING PICKLING PACKER Work Phone: [facility] 12-03-2024 09:00-0500 Body temperature 98.2 [degF] Galindo Aichholz [employer]ING P[employer] P[employer]ER Work Phone: [facility] 12-03-2024 09:00-0500 Body weight 70.49 kg Galindo Aichholz [employer] P[employer]ER Work Phone: [facility] 12-03-2024 09:00-0500 Diastolic blood pressure 76 mm[Hg] Galindo Aichholz [employer] P[employer] P[employer]ER Work Phone: [facility] 12-03-2024 09:00-0500 Heart rate 64 /min Galindo Aichholz [employer]ING P[employer] P[employer]ER Work Phone: [facility] 12-03-2024 09:00-0500 Respiratory rate 18 /min Galindo Aichholz [employer] P[employer]ER Work Phone: [facility] 12-03-2024 09:00-0500 SaO2% (BldA) [Mass fraction] 99 % Galindo Aichholz [employer] P[employer] P[employer]ER Work Phone: [facility] 12-03-2024 09:00-0500 Systolic blood pressure 130 mm[Hg] Galindo Aichholz [employer] P[employer]ER Work Phone: [facility] 11-15-2024 13:50-0500 Body height 167.6 cm Pacc 2 Work Phone: [facility] 11-15-2024 13:50-0500 Body mass index (BMI) [Ratio] 24.73 kg/m2 Pacc 2 Work Phone: [facility] 11-15-2024 13:50-0500 Body temperature 99.19 [degF] Pacc 2 Work Phone: [facility] 11-15-2024 13:50-0500 Body weight 69.5 kg Pacc 2 Work Phone: [facility] 11-15-2024 13:50-0500 Diastolic blood pressure 56 mm[Hg] Pacc 2 Work Phone: [facility] 11-15-2024 13:50-0500 Heart rate 64 /min Pacc 2 Work Phone: [facility] 11-15-2024 13:50-0500 Respiratory rate 16 /min Pacc 2 Work Phone: [facility] 11-15-2024 13:50-0500 SaO2% (BldA) [Mass fraction] 97 % Pacc 2 Work Phone: [facility] 11-15-2024 13:50-0500 Systolic blood pressure 147 mm[Hg] Pacc 2 Work Phone: [facility] 11-04-2024 08:44-0500 Body height 167.6 cm Luciana Hirzel DO Work Phone: [facility] 11-04-2024 08:44-0500 Body mass index (BMI) [Ratio] 25.09 kg/m2 Luciana Hirzel DO Work Phone: [facility] 11-04-2024 08:44-0500 Body weight 70.5 kg Luciana Hirzel DO Work Phone: [facility] 11-04-2024 08:44-0500 Diastolic blood pressure 82 mm[Hg] Luciananabil Green DO Work Phone: [facility] 11-04-2024 08:44-0500 Heart rate 80 /min Luciana Erasmozel DO Work Phone: [facility] 11-04-2024 08:44-0500 SaO2% (BldA) [Mass fraction] 98 % Luciananabil Green DO Work Phone: [facility] 11-04-2024 08:44-0500 Systolic blood pressure 160 mm[Hg] Luciana Erasmozel DO Work Phone: [facility] 10-30-2024 11:13-0500 Heart rate 62 /min Galindo Paul [employer]ING P[employer] P[employer]ER Work Phone: [facility] 10-30-2024 10:09-0500 Body mass index (BMI) [Ratio] 26.47 kg/m2 Galindo Paul [employer]ING P[employer] P[employer]ER Work Phone: [facility] 10-30-2024 10:09-0500 Body temperature 98.49 [degF] Galindo Romeliaz [employer]ING P[employer]LING P[employer]ER Work Phone: [facility] 10-30-2024 10:09-0500 Body weight 69.94 kg Galindo Romeliaz [employer]ING P[employer]LING P[employer]ER Work Phone: [facility] 10-30-2024 10:09-0500 Diastolic blood pressure 69 mm[Hg] Galindo Paul [employer]ING P[employer] P[employer]ER Work Phone: [facility] 10-30-2024 10:09-0500 Respiratory rate 18 /min Galindo Romeliaz [employer]ING P[employer] P[employer]ER Work Phone: [facility] 10-30-2024 10:09-0500 SaO2% (BldA) [Mass fraction] 95 % Galindo Romeliaz [employer]ING P[employer] P[employer]ER Work Phone: [facility] 10-30-2024 10:09-0500 Systolic blood pressure 140 mm[Hg] Galindo Romeliaz [employer]ING P[employer] P[employer]ER Work Phone: [facility] 10-29-2024 09:15-0500 Diastolic blood pressure 73 mm[Hg] Us Stro Work Phone: [facility] Comment on above: retaken 10-29-2024 09:15-0500 Heart rate 66 /min Us Stro Work Phone: [facility] 10-29-2024 09:15-0500 Systolic blood pressure 155 mm[Hg] Us Stro Work Phone: [facility] Comment on above: retaken 10-29-2024 09:14-0500 Body height 167.6 cm Us Stro Work Phone: [facility] 10-29-2024 09:14-0500 Body mass index (BMI) [Ratio] 24.21 kg/m2 Us Stro Work Phone: [facility] 10-29-2024 09:14-0500 Body weight 68.04 kg Us Stro Work Phone: [facility] 10-24-2024 13:18-0500 Body height 165.1 cm Luciana Hirzel DO Work Phone: [facility] 10-24-2024 13:18-0500 Body mass index (BMI) [Ratio] 25.79 kg/m2 Luciana Hirzel DO Work Phone: [facility] 10-24-2024 13:18-0500 Body weight 70.3 kg Luciana Hirzel DO Work Phone: [facility] 10-24-2024 13:18-0500 Diastolic blood pressure 70 mm[Hg] Luciana Hirzel DO Work Phone: [facility] 10-24-2024 13:18-0500 Heart rate 65 /min Luciana Hirzel DO Work Phone: [facility] 10-24-2024 13:18-0500 SaO2% (BldA) [Mass fraction] 98 % Luciana Hirzel DO Work Phone: [facility] 10-24-2024 13:18-0500 Systolic blood pressure 120 mm[Hg] Luciana Hirzel DO Work Phone: [facility] 10-16-2024 12:22-0500 Body temperature 99.3 [degF] Briana Torsney PA-C Work Phone: [facility] 10-16-2024 12:22-0500 Diastolic blood pressure 61 mm[Hg] Briana Torsney PA-C Work Phone: [facility] 10-16-2024 12:22-0500 Heart rate 76 /min Briana Torsney PA-C Work Phone: [facility] 10-16-2024 12:22-0500 Respiratory rate 18 /min Briana Torsney PA-C Work Phone: [facility] 10-16-2024 12:22-0500 SaO2% (BldA) [Mass fraction] 98 % Briana Torsney PA-C Work Phone: [facility] 10-16-2024 12:22-0500 Systolic blood pressure 156 mm[Hg] Briana Torsney PA-C Work Phone: [facility] 10-10-2024 15:01-0500 Body mass index (BMI) [Ratio] 26.78 kg/m2 Galindo Miller [employer]ING P[employer] P[employer]ER Work Phone: [facility] 10-10-2024 15:01-0500 Body temperature 99.19 [degF] Galindo Miller CURING P[employer] P[employer]ER Work Phone: [facility] 10-10-2024 15:01-0500 Body weight 70.76 kg Galindo Miller [employer] P[employer] P[employer]ER Work Phone: [facility] 10-10-2024 15:01-0500 Diastolic blood pressure 78 mm[Hg] Galindo Miller CURING P[employer] P[employer]ER Work Phone: [facility] 10-10-2024 15:01-0500 Heart rate 67 /min Galindo Miller [employer]ING P[employer] P[employer]ER Work Phone: [facility] 10-10-2024 15:01-0500 SaO2% (BldA) [Mass fraction] 97 % Galindo Aichholz CURING P[employer] P[employer]ER Work Phone: [facility] 10-10-2024 15:01-0500 Systolic blood pressure 138 mm[Hg] Galindo Aichholz CURING P[employer] P[employer]ER Work Phone: [facility] 09-30-2024 10:40-0500 Body height 162.6 cm Galindo Aichholz CURING P[employer] P[employer]ER Work Phone: [facility] 09-30-2024 10:40-0500 Body mass index (BMI) [Ratio] 26.91 kg/m2 Galindo Aichholz [employer]ING P[employer] P[employer]ER Work Phone: [facility] 09-30-2024 10:40-0500 Body temperature 97.81 [degF] Galindo Aichholz CURING P[employer] P[employer]ER Work Phone: [facility] 09-30-2024 10:40-0500 Body weight 71.12 kg Galindo Aichholz [employer]ING P[employer] P[employer]ER Work Phone: [facility] 09-30-2024 10:40-0500 Diastolic blood pressure 80 mm[Hg] Galindo Aichholz [employer]ING P[employer] P[employer]ER Work Phone: [facility] 09-30-2024 10:40-0500 Heart rate 90 /min Galindo Aichholz CURING P[employer] P[employer]ER Work Phone: [facility] 09-30-2024 10:40-0500 Respiratory rate 18 /min Galindo Aichholz CURING P[employer] P[employer]ER Work Phone: [facility] 09-30-2024 10:40-0500 SaO2% (BldA) [Mass fraction] 99 % Galindo Aichholz [employer] P[employer] P[employer]ER Work Phone: [facility] 09-30-2024 10:40-0500 Systolic blood pressure 132 mm[Hg] Galindo Aichholz [employer]ING P[employer] P[employer]ER Work Phone: [facility] 08-20-2024 09:19-0500 Body temperature 97.81 [degF] Galindo Aichholz [employer]ING P[employer] P[employer]ER Work Phone: [facility] 08-20-2024 09:19-0500 Body weight 74.57 kg Galindo Miller [employer] P[employer]ER Work Phone: [facility] 08-20-2024 09:19-0500 Diastolic blood pressure 76 mm[Hg] Galindo Leónz [employer]ING P[employer] P[employer]ER Work Phone: [facility] 08-20-2024 09:19-0500 Heart rate 59 /min Galindofranky Meansholz [employer]ING P[employer] P[employer]ER Work Phone: [facility] 08-20-2024 09:19-0500 Respiratory rate 18 /min Galindo Leónz [employer] P[employer]ER Work Phone: [facility] 08-20-2024 09:19-0500 SaO2% (BldA) [Mass fraction] 99 % Galindo Miller [employer] P[employer]ER Work Phone: [facility] 08-20-2024 09:19-0500 Systolic blood pressure 148 mm[Hg] Galindo Leónz [employer] P[employer] P[employer]ER Work Phone: [facility] 04-15-2022 06:02-0400 Body temperature 98.2 [degF] MD Atul Vera Work Phone: [facility] 04-15-2022 06:02-0400 Diastolic blood pressure 71 mm[Hg] MD Atul Vera Work Phone: [facility] 04-15-2022 06:02-0400 Heart rate 77 /min MD Atul Vera Work Phone: [facility] 04-15-2022 06:02-0400 Respiratory rate 16 /min MD Atul Vera Work Phone: [facility] 04-15-2022 06:02-0400 SaO2% (BldA) [Mass fraction] 96 % MD Atul Vera Work Phone: [facility] 04-15-2022 06:02-0400 Systolic blood pressure 131 mm[Hg] MD Atul Vera Work Phone: [facility] 04-15-2022 05:59-0400 Body weight 78.3 kg MD Atul Vera Work Phone: [facility] 04-14-2022 07:46-0400 Body height 167.64 cm MD Atul Vera Work Phone: [facility] 04-07-2022 15:42-0400 Body mass index (BMI) [Ratio] 27.7 kg/m2 MD Atul Vera Work Phone: [facility] 03-28-2022 12:00-0400 Body temperature 98 [degF] MD Atul Vera Work Phone: [facility] 03-28-2022 12:00-0400 Diastolic blood pressure 74 mm[Hg] MD Atul Vera Work Phone: [facility] 03-28-2022 12:00-0400 Heart rate 70 /min MD Atul Vera Work Phone: [facility] 03-28-2022 12:00-0400 SaO2% (BldA) [Mass fraction] 96 % MD Atul Vera Work Phone: [facility] 03-28-2022 12:00-0400 Systolic blood pressure 125 mm[Hg] MD Atul Vera Work Phone: [facility] 03-28-2022 11:50-0400 Body height 157.48 cm MD Atul Vera Work Phone: [facility] 03-28-2022 05:56-0400 Body weight 79.1 kg MD Atul Vera Work Phone: [facility] 03-28-2022 03:30-0400 Respiratory rate 19 /min MD Atul Vera Work Phone: [facility] 03-24-2022 04:00-0400 Body height 157.48 cm MD Atul Vera Work Phone: [facility] 03-24-2022 04:00-0400 Body mass index (BMI) [Ratio] 31.6 kg/m2 MD Atul Vera Work Phone: [facility] 03-24-2022 04:00-0400 Body temperature 97.8 [degF] MD Atul Vera Work Phone: [facility] 03-24-2022 04:00-0400 Body weight 78.4 kg MD Atul Vera Work Phone: [facility] 03-24-2022 04:00-0400 Diastolic blood pressure 77 mm[Hg] MD Atul Vera Work Phone: [facility] 03-24-2022 04:00-0400 Heart rate 113 /min MD Atul Vera Work Phone: [facility] 03-24-2022 04:00-0400 Respiratory rate 21 /min MD Atul Vera Work Phone: [facility] 03-24-2022 04:00-0400 SaO2% (BldA) [Mass fraction] 93 % MD Atul Vera Work Phone: [facility] 03-24-2022 04:00-0400 Systolic blood pressure 162 mm[Hg] MD Atul Vera Work Phone: [facility] 03-23-2022 15:30-0400 Body height 167.64 cm Atul Vera Other [employer] [facility] [employer] Other 03-23-2022 15:30-0400 Body mass index (BMI) [Ratio] 28.34 kg/m2 Atul Vera Other [employer] Other 03-23-2022 15:30-0400 Body weight 79.65 kg Atul Vera Other [employer] Other 03-09-2022 13:28-0400 Body height 158.75 cm MD Atul Vera Work Phone: [facility] 03-09-2022 13:28-0400 Body mass index (BMI) [Ratio] 32.1 kg/m2 MD Atul Vera Work Phone: [facility] 03-09-2022 13:28-0400 Body temperature 98.7 [degF] MD Atul Vera Work Phone: [facility] 03-09-2022 13:28-0400 Body weight 81 kg MD Atul Vera Work Phone: [facility] 03-09-2022 13:28-0400 Diastolic blood pressure 68 mm[Hg] MD Atul Vera Work Phone: [facility] 03-09-2022 13:28-0400 Heart rate 72 /min MD Atul Vera Work Phone: [facility] 03-09-2022 13:28-0400 Respiratory rate 16 /min MD Atul Vera Work Phone: [facility] 03-09-2022 13:28-0400 SaO2% (BldA) [Mass fraction] 96 % MD Atul Vera Work Phone: [facility] 03-09-2022 13:28-0400 Systolic blood pressure 144 mm[Hg] MD Atul Vera Work Phone: [facility] Encounters Encounter Date Encounter Type Care Provider Facility Start: 05-22-2025 End: 05-22-2025 Bamboo flowsheet Galindo Miller [employer] Work Phone: [facility] Start: 05-22-2025 End: 05-22-2025 Bamboo flowsheet Galindo Miller [employer] Work Phone: [facility] Start: 05-22-2025 End: 05-22-2025 Office outpatient visit 25 minutes Galindo Miller [employer] Work Phone: [facility] Comment on above: Type 2 diabetes fernandez itus without complication, without long- term current use of insulin (HCC) (Primary Dx); [...] gastric ulcer without hemorrhage or perforation Start: 05-22-2025 End: 05-22-2025 ambulatory GALINDO KENHOLZ Not Available Start: 02-18-2025 End: 02-18-2025 Bamboo flowsheet Galindo Miller [employer] Work Phone: [facility] Start: 02-18-2025 End: 02-18-2025 Bamboo flowsheet Galindo Miller [employer] Work Phone: [facility] Start: 02-18-2025 End: 02-18-2025 Patient encounter procedure Galindo Miller [employer] Work Phone: [facility] Comment on above: Encounter for subs uent annual wellness visit (AWV) in Medicare patient (Primary Dx); Type 2 diabetes mellitus with diabetic neuropathy, without long-term current use of insulin ([facility]/HCC); Benign essential HTN (CMS/HCC); Chronic atrial fibrillation, unspecified ([facility]/HCC); Chronic diastolic (congestive) heart failure; Type 2 diabetes mellitus with diabetic peripheral angiopathy without gangrene, without long-term current use of insulin (CMS/HCC); Foot drop, right foot; Type 2 diabetes mellitus without complication, without long-term current use of insulin; Mixed hyperlipidemia ([facility]); Type 2 diabetes mellitus without complications; Acute gastric ulcer without hemorrhage or perforation Start: 02-18-2025 End: 02-18-2025 ambulatory GALINDO AICHHOLZ Not Available Start: 01-31-2025 End: 01-31-2025 Clinisync Result Encounter Galindo Miller [employer] Work Phone: [facility] Unsolicited Start: 01-31-2025 End: 01-31-2025 Clinisync Result Encounter Galindo Miller [employer] Work Phone: [facility] Unsolicited Start: 01-30-2025 End: 01-30-2025 Orders Only Galindo Miller [employer] Work Phone: [facility] Comment on above: Benign essential HTN (CMS/HCC) (Primary Dx); Type 2 diabetes mellitus without complication, without long-term current use of insulin; Mixed hyperlipidemia (CMS/HCC); Vitamin B12 deficiency Start: 01-17-2025 End: 01-17-2025 ambulatory ROLANDA CHAPARRO Facility:[facility] Start: 01-17-2025 End: 01-17-2025 Patient encounter procedure Dinora Glen YUSUFTRIALS MANAGER Work Phone: Gastroenterology Comment on above: Calculus of gallblad josué without cholecystitis without obstruction (Primary Dx); Unintentional weight loss Start: 12-17-2024 End: 12-17-2024 ambulatory LUCIANA GREEN Facility:[facility] Start: 12-17-2024 End: 12-17-2024 Patient encounter procedure [...] Start: 12-06-2024 End: 12-06-2024 ambulatory GALINDO MILLER Facility:[facility] Start: 12-03-2024 End: 12-03-2024 Office outpatient visit 25 minutes Galindo Miller [employer] Work Phone: [facility] Comment on above: Type 2 diabetes fernandez itus without complication, without long- term current use of insulin ([facility]) (Primary Dx); Type 2 diabetes mellitus with diabetic neuropathy, without long-term current use of insulin ([facility]); Acute gastric ulcer without hemorrhage or perforation; Benign essential HTN ([facility]); Chronic atrial fibrillation, unspecified ([facility]); Type 2 diabetes mellitus with diabetic peripheral angiopathy without gangrene, without long-term current use of insulin ([facility]); Other thrombophilia ([facility]); Mixed hyperlipidemia ([facility]); Lower abdominal pain; Thickened endometrium Start: 12-03-2024 End: 12-03-2024 ambulatory GALINDO PAUL Not Available Start: 11-15-2024 Encounter for other preprocedural examination BRENDON DORSEY [facility] Start: 11-15-2024 End: 11-15-2024 Subsequent hospital visit by physician Jaskaran Dayton Work Phone: Radiology Comment on above: Pre-op evaluation [Z 01.818] Start: 11-15-2024 End: 11-19-2024 Clinisync Result Encounter Generic External Data Provider [facility] Unsolicited Start: 11-15-2024 End: 11-19-2024 Clinisync Result Encounter Generic External Data Provider [facility] External [facility] Unsolicited Start: 11-15-2024 End: 11-15-2024 Patient encounter procedure Maxine Kaba RT(R) Radiology Start: 11-15-2024 End: 11-17-2024 Refill Galindo Miller [employer] Work Phone: [facility] Comment on above: Acute gastric ulcer without hemorrhage or perforation Start: 11-15-2024 End: 11-15-2024 [facility] Work Phone: Pre [facility] Start: 11-15-2024 End: 11-15-2024 ambulatory Maxine Kaba RT(R) Radiology Comment on above: Radiology XR Start: 11-15-2024 End: 11-15-2024 Anesthesia consultation Pac 2 Work Phone: Pre Anesthesia Comment on above: Pre-op evaluation (P rimary Dx); Benign essential HTN; Type 2 diabetes mellitus with other specified complication, without long-term current use of insulin (HCC); Paroxysmal atrial fibrillation (HCC); Coronary artery disease involving [place] coronary artery of [place] heart without angina pectoris; Other hyperlipidemia Start: 11-15-2024 End: 11-15-2024 Preprocedural examination done [facility] 2 Work Phone: [facility] Work Phone: Start: 11-13-2024 End: 11-13-2024 ambulatory [facility] Start: 11-12-2024 End: 11-12-2024 ambulatory [facility] Obstetrics/Gynecolog y Comment on above: Polyp removal proced ure Start: 11-07-2024 End: 11-14-2024 Telephone encounter Luciana Green DO Work Phone: Obstetrics/Gynecology Comment on above: Schedule Surgery Start: 11-07-2024 End: 11-07-2024 ambulatory [facility] Start: 11-07-2024 End: 11-07-2024 Encounter for preprocedural cardiovascular examination [facility] Start: 11-05-2024 End: 11-05-2024 Telephone encounter Luciana Green DO Work Phone: Obstetrics/Gynecology Start: 11-04-2024 End: 11-04-2024 ambulatory LUCIANA GREEN Facility:[facility] Start: 11-04-2024 End: 11-04-2024 Patient encounter procedure Luciana Green DO Work Phone: Obstetrics/Gynecology Comment on above: Endometrial polyp (P rimary Dx) Start: 10-30-2024 End: 10-30-2024 Bamboo flowsheet Galindo Miller [employer] Work Phone: [facility] Start: 10-30-2024 End: 10-30-2024 Bamboo flowsheet Galindo Miller [employer] Work Phone: [facility] Start: 10-30-2024 End: 10-30-2024 Telephone encounter Gabriela Centeno MD Work Phone: Obstetrics/Gynecology Start: 10-30-2024 End: 10-30-2024 Office outpatient visit 25 minutes Galindo Miller [employer] Work Phone: [facility] Comment on above: Benign essential HTN (CMS/HCC) [...] Vitamin B12 deficiency; Other thrombophilia (CMS/HCC) Start: 10-30-2024 End: 10-30-2024 ambulatory GALINDO MILLER [...] Start: 10-29-2024 End: 10-29-2024 ambulatory BRENDON DORSEY Facility:[facility] Start: 10-29-2024 End: 10-29-2024 Patient encounter procedure Facilities Management Executive [facility] Work Phone: OB/Gynecology Comment on above: Thickened endometriu m (Primary Dx); Endometrial polyp; Endocervical polyp; Abnormal ultrasound of endometrium Start: 10-24-2024 End: 10-24-2024 ambulatory LUCIANA GREEN Facility:[facility] Start: 10-24-2024 End: 10-24-2024 Patient encounter procedure Luciana Green DO Work Phone: Obstetrics/Gynecology Comment on above: Thickened endometriu m (Primary Dx) Start: 10-21-2024 End: 10-22-2024 Clinisync Result Encounter Generic External Data Provider [facility] External [facility] Unsolicited Start: 10-21-2024 End: 10-22-2024 Clinisync Result Encounter Generic External Data Provider [facility] External Department Unsolicited Start: 10-21-2024 End: 10-21-2024 Evaluation and management of inpatient GALINDO MILLER Facility:[facility] Start: 10-16-2024 End: 10-21-2024 Evaluation and management of inpatient GASAN NEMR Facility:[facility] Start: 10-16-2024 End: 10-16-2024 Emergency department patient visit HIBA DORSEY Facility:[facility] Start: 10-16-2024 End: 10-16-2024 ambulatory SELF Facility:[facility] Start: 10-16-2024 End: 10-16-2024 Patient encounter procedure Briana Schwarz PA-C Work Phone: [facility] Comment on above: Confusion (Primary D x); Abdominal pain, unspecified abdominal location Start: 10-10-2024 End: 10-10-2024 Office outpatient visit 15 minutes Galindo Miller [employer] Work Phone: [facility] Comment on above: Non-recurrent acute suppurative otitis media of right ear without spontaneous rupture of tympanic membrane (Primary Dx); Acute non-recurrent sinusitis of other sinus Start: 10-10-2024 End: 10-10-2024 ambulatory GALINDO MILLER Not Available Start: 10-10-2024 End: 10-10-2024 Bamboo flowsheet Galindo Miller [employer] Work Phone: [facility] Start: 10-10-2024 End: 10-10-2024 Bamboo flowsheet Galindo Miller [employer] Work Phone: [facility] Start: 10-07-2024 End: 10-09-2024 Refill Laurie Walton [employer] Work Phone: [facility] Comment on above: Type 2 diabetes fernandez itus without complications (CMS/HCC) Start: 09-30-2024 End: 09-30-2024 Bamboo flowsheet Galindo Miller [employer] Work Phone: [facility] Start: 09-30-2024 End: 09-30-2024 Bamboo flowsheet Galindo Miller [employer] Work Phone: [facility] Start: 09-30-2024 End: 09-30-2024 Transitional care manage srvc 14 day discharge Galindo Miller [employer] Work Phone: [facility] Comment on [...] perforation Start: 09-30-2024 End: 09-30-2024 ambulatory GALINDO PAUL Not Available Start: 09-20-2024 Evaluation and management of inpatient MIRRA RITIKA [facility] Start: 09-20-2024 Evaluation and management of inpatient DANIA SANDOVAL [facility] Start: 09-19-2024 Evaluation and management of inpatient KAYLEIGH RIVERA [facility] Start: 09-18-2024 ambulatory ANNELISE PIERCE [facility] Start: 09-17-2024 Emergency department patient visit ANNELISE PIERCE [facility] Start: 09-17-2024 End: 09-21-2024 Evaluation and management of inpatient EDMUNDO FOX [facility] Start: 08-30-2024 End: 08-30-2024 Refill Galindo Miller [employer] Work Phone: [facility] Comment on above: UTI symptoms (Primar y Dx); Vaginal yeast infection Start: 08-29-2024 End: 08-29-2024 Clinisync Result Encounter Galindo Miller [employer] Work Phone: [facility] Unsolicited Start: 08-29-2024 End: 08-29-2024 Clinisync Result Encounter Galindo Paul [employer] Work Phone: [facility] Unsolicited Start: 08-23-2024 End: 08-23-2024 Orders Only Galindofranky Miller [employer] Work Phone: [facility] Comment on above: Hypernatremia (Prima ry Dx) Start: 08-20-2024 End: 08-20-2024 Bamboo flowsheet Galindo Miller [employer] Work Phone: [facility] Start: 08-20-2024 End: 08-20-2024 Bamboo flowsheet Galindo Paul [employer] Work Phone: [facility] Start: 08-20-2024 End: 08-20-2024 Clinisync Result Encounter Galindo Paul [employer] Work Phone: [facility] Unsolicited Start: 08-20-2024 End: 08-20-2024 Office outpatient visit 25 minutes Galindo Miller [employer] Work Phone: [facility] Comment on [...] (CMS/HCC) Start: 08-20-2024 End: 08-20-2024 ambulatory GALINDO BRIHHOLZ Not Available Start: 08-18-2024 End: 08-18-2024 Refill Galindofranky Miller [employer] Work Phone: [facility] Comment on above: Type 2 diabetes fernandez itus without complications ([facility]) Start: 08-11-2024 End: 08-12-2024 Refill Galindo Paul [employer] Work Phone: [facility] Comment on above: Type 2 diabetes fernandez itus without complication, without long- term current use of insulin ([facility]) Start: 02-15-2024 Patient encounter procedure Galindo Miller [employer] Work Phone: [facility] Start: 02-02-2024 End: 02-02-2024 ambulatory [facility] Start: 09-07-2022 Telephone encounter Juice Sears MD Work Phone: Neurology Comment on above: Received Outside Med ical Records ([facility] ) Start: 08-23-2022 End: 08-23-2022 Patient encounter procedure Hal Adam PA-C Work Phone: Neurosurgery Comment on above: Foot drop, right maki t (Primary Dx) Start: 08-15-2022 End: 08-16-2022 ambulatory TRIALS MANAGER GALINDO MILLER Facility:[facility] Start: 07-29-2022 Telephone encounter Juice Sears MD Work Phone: Neurology Comment on above: Other (Civil Engineering Professor apy Recertification Note ) Start: 07-26-2022 End: 07-26-2022 Office outpatient new 20 minutes Clayton Hopper DPM Work Phone: Dr[facility] 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 (Primary Dx); Foot drop, right foot Start: 06-16-2022 Telephone encounter Juice Sears MD Work Phone: Neurology Comment on above: Forms; Other (Discha rge Physician Orders) Start: 05-25-2022 Telephone encounter Juice Sears MD Work Phone: Neurology Comment on above: Forms (Physician Ord ers ([place]) - [facility]//) Start: 05-23-2022 End: 07-29-2022 ambulatory TRIALS MANAGER GALINDO MILLER Facility:[facility] Start: 05-17-2022 End: 05-17-2022 Patient encounter procedure Juice Sears MD Work Phone: Neurosurgery Comment on above: Spinal stenosis of l umbar region, unspecified whether neurogenic claudication present (Primary Dx); Right leg weakness Start: 05-12-2022 Telephone encounter Juice Sears MD Work Phone: Neurology Comment on above: General ([facility]) Start: 05-06-2022 Telephone encounter Juice Sears MD Work Phone: Neurology Comment on above: Other ([facility] Care 04/17/22 - 06/15/22) Start: 04-29-2022 Telephone encounter Juice Sears MD Work Phone: Neurology Comment on above: Forms Start: 04-22-2022 Telephone encounter Juice Sears MD Work Phone: Neurology Comment on above: Forms ([facility]) Start: 04-15-2022 Telephone encounter Juice Sears MD Work Phone: Neurology Comment on above: Other (home health o rders requested) Start: 04-07-2022 End: 04-15-2022 Evaluation and management of inpatient Galindo Meansfredrickjaziel Facility:[facility] Start: 04-07-2022 End: 04-15-2022 Evaluation and management of inpatient MD Atul Vera Work Phone: [facility] Start: 04-05-2022 Evaluation and management of inpatient [facility] Start: 03-24-2022 End: 03-28-2022 ambulatory Galindo Miller Facility:[facility] Start: 03-24-2022 End: 03-28-2022 Evaluation and management of inpatient MD Atul Vera Work Phone: [facility] Start: 03-23-2022 End: 03-23-2022 ambulatory Atul Vera Other [facility] [employer] Other Start: 03-23-2022 Postop follow up vis it related to original px Atul Vera [facility] Neurosurgery Start: 03-17-2022 End: 03-17-2022 ambulatory Galindo Miller Facility:[facility] Start: 03-17-2022 End: 03-17-2022 Departed Referred MD Atul Vera Work Phone: [facility] [place] Start: 03-15-2022 ambulatory TRIALS MANAGER GALINDO MILLER Facil ity:[facility] Start: 03-09-2022 End: 03-09-2022 ambulatory NON STAFF Facility:[facility] Start: 03-09-2022 End: 03-09-2022 Patient encounter procedure MD Atul Vera Work Phone: [facility] Start: 02-28-2022 End: 02-28-2022 ambulatory Atul Vera Facility:[facility] Start: 02-28-2022 End: 02-28-2022 Patient encounter procedure MD Atul Vera Work Phone: [facility] Start: 02-18-2022 End: 02-19-2022 ambulatory TRIALS MANAGER GALINDO PAUL Facility:[facility] Start: 02-11-2022 End: 02-12-2022 ambulatory TRIALS MANAGER GALINDO AICHHOLZ Facility:[facility] Start: 02-09-2022 End: 02-10-2022 ambulatory TRIALS MANAGER GALINDO AICHHOLZ Facility:[facility] Procedures Date Procedure Procedure Detail Performing Clinician Start: 01-31-2025 ALL CBC WITH AUTO DIFF Galindo Miller [employer] Work Phone: Start: 12-06-2024 Antibody screen Generic Provider Start: 12-06-2024 Antibody screen GALINDO TYLER Comment on above: Order Comment: Speci men Type: BLOOD SPECIMENOrdering Facility: [facility] Address: [address] [place] [address] [place] [address] Performed By: #### T SCR ####[facility] HOSPITALDEYSI [facility] [id number] [address] [place] [facility] Start: 12-06-2024 [facility] TYPE + SCREEN Gener ic External Data Provider Start: 12-03-2024 Hemoglobin glycosylated a1c Galindo Meansfredrickjaziel [employer] Work Phone: Start: 11-15-2024 XR CHEST 2V FRONTAL/LAT Generic External Data Provider Start: 10-29-2024 [facility] SURGICAL PATHOLOGY Generic External Data Provider Start: 10-29-2024 Saline infus sonohysterography w/color doppler Luciana Green DO Work Phone: Start: 10-21-2024 [facility] SURGICAL [facility]OLOG[facility] Generic External Data Provider Start: 08-29-2024 ALL BASIC METABOLIC PANEL Galindo Paul [employer] Work Phone: Start: 08-20-2024 ALL CBC WITH AUTO DIFF Galindo Paul [employer] Work Phone: Start: 08-20-2024 ALL BASIC METABOLIC PANEL Galindo Kenfredrickz [employer] Work Phone: Start: 08-20-2024 Hemoglobin glycosylated a1c Galindofranky Meansfredrickz [employer] Work Phone: Start: 03-27-2022 Urine culture MD Atul Vera Work Phone: Start: 03-23-2022 Plain chest X-ray MD Osborn Work Phone: Start: 03-23-2022 SARS Antigen (LFIA) MD Atlu Vera Work Phone: Start: 02-28-2022 Dual energy X-ray absorptiometry MD Atul Vera Work Phone: Urine culture MD Atul sebastian Work Phone: Plan of Treatment Date Care Activity Detail Author Start: 12-26-2026 Glaucoma screening Diabetes: Retinopathy Screening [facility] Start: 02-23-2026 End: 02-23-2026 Patient encounter procedure 02/23/2026 10:30 AM EDT Office Visit [facility] [address] [place] [address] Galindo Miller, [employer] [address] [place] [phone] [facility] Start: 01-31-2026 Urine screening for protein Diabetes: Urine Protein Screening [facility] Start: 08-21-2025 End: 08-21-2025 Patient encounter procedure 08/21/2025 9:20 AM EST Office Visit [facility] [address] [place] [address] Galindo Miller, RONNIE [address] [place] [phone] [facility] Start: 06-09-2025 Influenza vaccination Influenza Vaccine (#1) [facility] Start: 06-02-2025 Hemoglobin A1c measurement HbA1C [facility] Start: 05-22-2025 End: 07-22-2026 MG Breast - bilateral Screening Bilateral screening mammogram Imaging Routine Encounter for screening mammogram for malignant neoplasm of breast Expected: 05/22/2025 (Approximate), Expires: 07/22/2026 [facility] Work Phone: Comment on above: Expected: 05/22/2025 (Approximate), Expi res: 07/22/2026 Start: 05-22-2025 End: 05-22-2025 Patient encounter procedure [facility] Comment on above: Type 2 diabetes mellitus with diabetic n europathy, without long-term current use of insulin (HCC) (Primary Dx); Type 2 diabetes mellitus with diabetic peripheral angiopathy without gangrene, without long-term current use of insulin (HCC); Chronic atrial fibrillation, unspecified (HCC); Benign essential HTN ; Type 2 diabetes mellitus without complication, without long-term current use of insulin (HCC); Mixed hyperlipidemia Start: 05-02-2025 Hemoglobin A1c measurement Diabetes: Hemoglobin A1C [facility] Start: 03-02-2025 Hemoglobin A1c measurement Diabetes: Hemoglobin A1C [facility] Start: 02-25-2025 Urine screening for protein Diabetes: Urine Protein Screening [facility] Start: 02-18-2025 End: 02-18-2025 Patient encounter procedure [facility] Comment on above: Type 2 diabetes mellitus with diabetic n europathy, without long-term current use of insulin ([facility]/HCC) (Primary Dx); Benign essential HTN (CMS/HCC); Chronic atrial fibrillation, unspecified (CMS/HCC); Chronic diastolic (congestive) heart failure; Type 2 diabetes mellitus with diabetic peripheral angiopathy without gangrene, without long-term current use of insulin (CMS/HCC); Foot drop, right foot; Type 2 diabetes mellitus without complication, without long-term current use of insulin; Mixed hyperlipidemia ([facility]/HCC); Encounter for subsequent annual wellness visit (AWV) in Medicare patient Start: 02-17-2025 Hemoglobin A1c measurement HbA1C [facility] Start: 02-14-2025 Medicare Annual Wellness (AWV) Medicare Annual Wellness (AWV) [facility] Start: 01-30-2025 End: 01-30-2026 CBC W Auto Differential panel - Blood CBC and differential Lab Routine Vitamin B12 deficiency Expected: 01/30/2025 (Approximate), Expires: 01/30/2026 [facility] Work Phone: Comment on above: Expected: 01/30/2025 (Approximate), Expi res: 01/30/2026 Start: 01-30-2025 End: 01-30-2026 Cobalamin (Vitamin B12) [Mass/volume] in Serum or Plasma Vitamin B12 Lab Routine Vitamin B12 deficiency Expected: 01/30/2025 (Approximate), Expires: 01/30/2026 [facility] Comment on above: Expected: 01/30/2025 (Approximate), Expi res: 01/30/2026 Start: 01-30-2025 End: 01-30-2026 Comprehensive metabolic 2000 panel - Serum or Plasma Comprehensive metabolic panel Lab Routine Benign essential HTN (CMS/HCC) Type 2 diabetes mellitus without complication, without long-term current use of insulin Mixed hyperlipidemia (CMS/HCC) Expected: 01/30/2025 (Approximate), Expires: 01/30/2026 [facility] Comment on above: Expected: 01/30/2025 (Approximate), Expi res: 01/30/2026 Start: 01-30-2025 End: 01-30-2026 Hemoglobin A1c/Hemoglobin.total in Blood Hemoglobin A1c Lab Routine Type 2 diabetes mellitus without complication, without long-term current use of insulin Expected: 01/30/2025 (Approximate), Expires: 01/30/2026 [facility] Comment on above: Expected: 01/30/2025 (Approximate), Expi res: 01/30/2026 Start: 01-30-2025 End: 01-30-2026 Lipid 1996 panel - Serum or Plasma Lipid panel Lab Routine Mixed hyperlipidemia (CMS/HCC) Expected: 01/30/2025 (Approximate), Expires: 01/30/2026 [facility] Comment on above: Expected: 01/30/2025 (Approximate), Expi res: 01/30/2026 Start: 01-30-2025 End: 01-30-2026 Microalbumin/Creatinin e panel in random Urine Microalbumin / creatinine, urine ratio Lab Routine Benign essential HTN (CMS/HCC) Type 2 diabetes mellitus without complication, without long-term current use of insulin Expected: 01/30/2025 (Approximate), Expires: 01/30/2026 [facility] Comment on above: Expected: 01/30/2025 (Approximate), Expi res: 01/30/2026 Start: 01-30-2025 End: 01-30-2026 Urinalysis complete panel - Urine Urinalysis with reflex microscopic (clean catch) Lab Routine Benign essential HTN (CMS/HCC) Type 2 diabetes mellitus without complication, without long-term current use of insulin Expected: 01/30/2025 (Approximate), Expires: 01/30/2026 [facility] Comment on above: Expected: 01/30/2025 (Approximate), Expi res: 01/30/2026 Start: 01-24-2025 End: 01-24-2025 Patient encounter procedure 01/24/2025 11:20 AM EDT Office Visit Gastroenterology [address] [place] [address] Dinora Carroll APRN.TRIALS MANAGER [address] [facility] [address] [place], [place] [id number] Evaluate for colonscopy; Abdominal pain, weight loss. Gastroenterology Comment on above: Evaluate for colonscopy; Abdominal pain, weight loss. Start: 01-17-2025 End: 01-17-2025 Patient encounter procedure 01/17/2025 10:30 AM EDT Office Visit Gastroenterology [address] [place] [address] Dinora Carroll APRN.[facility] [address] [place] [address] Evaluate for colonscopy; Abdominal pain, weight loss. Gastroenterology Comment on above: Evaluate for colonscopy; Abdominal pain, weight loss. Start: 12-19-2024 Glaucoma screening Diabetes: Retinopathy Screening [facility] Start: 12-17-2024 End: 12-17-2024 Patient encounter procedure 12/17/2024 9:00 AM EDT Office Visit Obstetrics/Gynecology [id number] [address] [place] [address] [address] POST OP Obstetrics/Gynecology Comment on above: POST OP Start: 12-06-2024 End: 12-06-2024 Admission to same day surgery center 12/06/2024 7:30 AM EST - 12/06/2024 8:50 AM EST Surgery [facility] Operating Room [id number] [place] [address] [place] [address] [address] EXAM UNDER ANESTHESIA PELVIC / VAGINAL [facility] Operating Room Comment on above: EXAM UNDER [...] physician 12/06/2024 7:30 AM EST Hospital Encounter [facility] Operating Room [address] [place] [address] [place] [address] [facility] [address] [place] [address] Endometrial polyp [N84.0] [facility] Operating Room Comment on above: Endometrial polyp [N84.0] Start: 12-03-2024 End: 12-03-2024 Patient encounter procedure 12/03/2024 9:00 AM EST Office Visit [facility] [address] [address] Galindo Miller NP [address] [place] [address] [facility] Start: 11-20-2024 Hemoglobin A1c measurement Diabetes: Hemoglobin A1C [facility] Start: 11-15-2024 End: 11-15-2024 Anesthesia consultation 11/15/2024 1:40 PM EST PAT [facility]est[facility] [address] [facility] [address] [place] [address] DOS 12/06 Pre Anesthesia Comment on above: DOS 12/06 Start: 10-30-2024 End: 10-30-2024 [facility] Comment on above: Delirium due to [...] Routine Thickened endometrium Expected: 10/24/2024, Expires: 10/24/2025 [facility] Work Phone: Comment on above: Expected: 10/24/2024, Expires: Start: 10-22-2024 End: 10-22-2024 Patient encounter procedure 10/22/2024 8:30 AM EST Office Visit Geriatrics [address] [place], [place] [id number] Robby Kim MD [address] [place] [address] , Nurse Britt Gonzales [place] [address] [place] [address] COGNITIVE DECLINE Geriatrics Comment on above: COGNITIVE DECLINE Start: 10-10-2024 End: 10-10-2024 Patient encounter procedure 10/10/2024 3:00 PM EST Office Visit [facility] [address] [place] [address] Gailndo Miller, RONNIE [address] [place] [phone] Arrived [facility] Comment on above: Arrived Start: 10-09-2024 Advance Directive Discussion Advance Directive Discussion [facility] Start: 09-30-2024 End: 09-30-2024 Patient encounter procedure 09/30/2024 10:30 AM EST Office Visit [facility] [address] [place] [phone] Galindo Miller, CURING [employer] P[employer]ER [address] [place] [phone] Acute metabolic encephalopathy (Primary Dx); Type 2 diabetes mellitus with diabetic neuropathy, without long-term current use of insulin (CMS/HCC); Chronic atrial fibrillation (HCC) (CMS/HCC); Benign essential HTN (CMS/HCC); Chronic diastolic congestive heart failure (CMS/HCC); Acute cholecystitis; Type 2 diabetes mellitus without complication, without long-term current use of insulin (CMS/HCC); Thickened endometrium [facility] Comment on above: Acute metabolic encephalopathy (Primary [...] Routine Hypernatremia Expected: 09/06/2024 (Approximate), Expires: 08/23/2025 [facility] Work Phone: Comment on above: Expected: 09/06/2024 (Approximate), Expi res: 08/23/2025 Start: 09-06-2024 End: 08-23-2025 Osmolality of Serum or Plasma Osmolality Lab Routine Hypernatremia Expected: 09/06/2024 (Approximate), Expires: 08/23/2025 [facility] Comment on above: Expected: 09/06/2024 (Approximate), Expi res: 08/23/2025 Start: 09-06-2024 End: 08-23-2025 Osmolality, urine Osmolality, urine Lab Routine Hypernatremia Expected: 09/06/2024 (Approximate), Expires: 08/23/2025 [facility] Comment on above: Expected: 09/06/2024 (Approximate), Expi res: 08/23/2025 Start: 09-06-2024 End: 08-23-2025 Urinalysis complete panel - Urine Urinalysis with reflex microscopic (clean catch) Lab Routine Hypernatremia Expected: 09/06/2024 (Approximate), Expires: 08/23/2025 [facility] Comment on above: Expected: 09/06/2024 (Approximate), Expi res: 08/23/2025 Start: 08-20-2024 End: 08-20-2025 Basic metabolic 1998 panel - Serum or Plasma Basic metabolic panel Lab Routine Type 2 diabetes mellitus without complication, without long-term current use of insulin (CMS/HCC) Expected: 08/20/2024 (Approximate), Expires: 08/20/2025 [facility] Work Phone: Comment on above: Expected: 08/20/2024 (Approximate), Expi res: 08/20/2025 Start: 08-20-2024 End: 08-20-2025 CBC W Auto Differential panel - Blood CBC and differential Lab Routine Other thrombophilia (CMS/HCC) Chronic atrial fibrillation (HCC) (CMS/HCC) Expected: 08/20/2024 (Approximate), Expires: 08/20/2025 [facility] Comment on above: Expected: 08/20/2024 (Approximate), Expi res: 08/20/2025 Start: 08-20-2024 End: 08-20-2024 Patient encounter procedure 08/20/2024 9:20 AM EST Office Visit [facility] [address] [place] [address] Galindo Miller NP [address] [place] [address] [facility] Start: 06-09-2024 Covid-19 Vaccine ( season) Covid-19 Vaccine ( season) [facility] Start: 06-09-2024 Influenza vaccination Influenza Vaccine (#1) [facility] Start: 11-25-2023 Hemoglobin A1c measurement Diabetes: Hemoglobin A1C [facility] Start: 06-09-2022 Influenza vaccination INFLUENZA (#1) [facility] Start: 04-14-2022 [facility] Work Phone: Start: 04-07-2022 Hospital admission [facility] Work Phone: Start: 04-07-2022 Referral to clinical dentist/owner [facility] Work Phone: Start: 03-28-2022 [facility] Work Phone: Start: 03-27-2022 Urine culture Urine Culture [facility] Start: 03-24-2022 Referral to neurologist [facility] Work Phone: Start: 03-24-2022 Hospital admission [facility] Work Phone: Start: 03-17-2022 Excision of lumbar intervertebral disc OR Lumbar Discectomy (Not Applicable) [facility] Start: 11-23-2021 COVID-19 VACCINE (4 - Booster for Pfizer series) COVID-19 VACCINE (4 - Booster for Pfizer series) [facility] Start: 10-09-2021 ADVANCE DIRECTIVE DISCUSSION ADVANCE DIRECTIVE DISCUSSION [facility] Start: 10-09-2021 DEPRESSION ASSESSMENT DEPRESSION ASSESSMENT [facility] Start: 09-17-2021 COVID-19 VACCINE (4 - Booster for Pfizer series) COVID-19 VACCINE (4 - Booster for Pfizer series) [facility] Start: 2015 RSV Vaccine (1 - 1-dose 75+ series) RSV Vaccine (1 - 1-dose 75+ series) [facility] Start: 2005 BONE DENSITY BONE DENSITY [facility] Start: 2005 Screening for osteoporosis Bone Density Screening [facility] Start: 1990 SHINGRIX VACCINE (1 of 2) SHINGRIX VACCINE (1 of 2) [facility] Start: 1959 Urine microalbumin profile [facility] Start: 1958 Anxiety Screening Anxiety Screening [facility] Start: 1958 Depression Screening Depression Screening [facility] Start: 1958 Hepatitis B surface antibody level LDL CHOLESTEROL [facility] Start: 1950 3 comp foot exam completed DIABETIC FOOT EXAM [facility] Start: 1950 Diabetic foot examination Diabetic Foot Exam [facility] Start: 1950 Glaucoma screening Dilated Retinal Exam [facility] Start: 1950 Hepatitis B screening URINE ALBUMIN:CREATININE RATIO [facility] Start: 1950 Hepatitis C antibody, confirmatory test DILATED RETINAL EXAM [facility] Start: 1946 PNEUMOCOCCAL: 65+ (1 - PCV) PNEUMOCOCCAL: 65+ (1 - PCV) [facility] Start: 1945 Hemoglobin A1c/Hemoglobin.total in Blood HBA1C [facility] Basophil count [facility] Work Phone: Basophil percent differential count [facility] Work Phone: Calcium [Mass/volume ] in Serum or Plasma [facility] Work Phone: Carbon dioxide, tota l [Moles/volume] in Serum or Plasma [facility] Work Phone: Chloride [Moles/volume] in Serum or Plasma [facility] Work Phone: Creatinine and Glomerular filtration rate.predicted panel - Serum, Plasma or Blood [facility] Work Phone: Endometrial bx w/wo endocervix bx w/o dilat spx ENDOMETRIAL BIOPSY Procedures Routine Thickened endometrium Ordered: 10/24/2024 [facility] Comment on above: Ordered: 10/24/2024 Eosinophil percent differential count [facility] Work Phone: Eosinophils [#/volum e] in Blood [facility] Work Phone: Erythrocyte mean corpuscular volume determination [facility] Work Phone: Erythrocytes [#/volume] in Blood [facility] Work Phone: Glucose [Mass/volume ] in Serum or Plasma [facility] Work Phone: Hematocrit [Volume Fraction] of Blood [facility] Work Phone: Hemoglobin [Mass/volume] in Blood [facility] Work Phone: Hemoglobin distribution, width determination [facility] Work Phone: Hysteroscopy bx endometrium&/polypc w/wo d&c HYSTEROSCOPY W/ POLYPECTOMY W/ D&C Endometrial polyp [facility] Leukocytes [#/volume ] in Blood [facility] Work Phone: Lymphocyte count [facility] Work Phone: Lymphocyte percent differential count [facility] Work Phone: Mean corpuscular hemoglobin concentration determination [facility] Work Phone: Mean corpuscular hemoglobin determination [facility] Work Phone: Measurement of renal function [facility] Work Phone: Monocyte count [facility] Work Phone: Monocyte percent differential count [facility] Work Phone: Neutrophil count [facility] Work Phone: Neutrophil percent differential count [facility] Work Phone: Patient Education How to Don an AFO [facility] Work Phone: Patient referral [facility] Work Phone: Pelvic examination w/anesthesia other than local EXAM UNDER ANESTHESIA PELVIC / VAGINAL Endometrial polyp [facility] Platelet mean volume determination [facility] Work Phone: Platelets [#/volume] in Blood [facility] Work Phone: Potassium [Moles/volume] in Serum or Plasma [facility] Work Phone: SARS-CoV-2 (COVID-19 ) N gene [Presence] in Respiratory specimen by HARMONY with probe detection [facility] Work Phone: Sodium [Moles/volume ] in Serum or Plasma [facility] Work Phone: SURGICAL PATHOLOGY SURGICAL PATH OLOGY Lab Routine Thickened endometrium 10/29/2024 10:40 AM EST [facility] Work Phone: Urea nitrogen [Mass/volume] in Serum or Plasma [facility] Work Phone: End: 12-13-2025 XR Chest PA and Lateral XR CHEST 2V FRONTAL/LAT Radiology Routine Pre-op evaluation Benign essential HTN Type 2 diabetes mellitus with other specified complication, without long-term current use of insulin (HCC) Paroxysmal atrial fibrillation (HCC) Coronary artery disease involving [place] coronary artery of [place] heart without angina pectoris Other hyperlipidemia 1 Occurrences starting 11/15/2024 until 12/13/2025 [facility] Work Phone: Comment on above: 1 Occurrences starting 11/15/2024 until 12/13/2025 XR Chest PA and Lateral XR CHEST 2V FRONTAL/LAT Radiology Routine Pre-op evaluation Benign essential HTN Type 2 diabetes mellitus with other specified complication, without long-term current use of insulin (HCC) Paroxysmal atrial fibrillation (HCC) Coronary artery disease involving [place] coronary artery of [place] heart without angina pectoris Other hyperlipidemia 11/15/2024 2:40 PM EST [facility] Immunizations Immunization Date Immunization Notes Care Provider Deyanira cabral 07-22-2024 influenza, high dose seasonal, preservative-free Galindo Aichholz [employer]ING [employer] Work Phone: [facility] 07-22-2024 influenza virus vacc ine, unspecified formulation Galindo Aichholz [employer] Work Phone: [facility] 07-25-2023 Influenza, High-dose Seasonal, Quadrivalent, Preservative Free Galindo Aichholz [employer] Work Phone: [facility] 07-25-2023 influenza virus vacc ine, unspecified formulation Galindo Aichholz [employer] Work Phone: [facility] 08-08-2022 Influenza, High-dose Seasonal, Quadrivalent, Preservative Free Galindo Aichholz [employer] Work Phone: [facility] 07-23-2021 COVID-19 Ld Perez (Pfizer) MD Atlu Vera Work Phone: [facility] 07-16-2021 Influenza, Seasonal, Quadrivalent, Adjuvanted Galindo Aichholz [employer] Work Phone: [facility] 12-03-2020 COVID-19 Ld Perez (Pfizer) MD Atul Vera Work Phone: [facility] 11-11-2020 COVID-19 mRNALd (Pfizer) MD Atul Vera Work Phone: [facility] 06-06-2020 influenza, injectabl e, quadrivalent, preservative free Galindo Aichholz [employer] Work Phone: [facility] 07-18-2019 Seasonal, quadrivale nt, recombinant, injectable influenza vaccine, preservative free Galindo Aichholz [employer] Work Phone: [facility] 07-25-2018 Seasonal trivalent influenza vaccine, adjuvanted, preservative free Galindo Aichholz [employer] Work Phone: [facility] 07-28-2017 influenza, high dose seasonal, preservative-free Galindo Aichholz [employer] Work Phone: [facility] 07-26-2016 pneumococcal polysaccharide vaccine, 23 valent Galindo Aichholz [employer] Work Phone: [facility] 03-23-2015 pneumococcal conjuga te vaccine, 13 valent Galindo Aichholz [employer] Work Phone: [facility] Healthcare Payers Date Payer Category Payer Private Health Insurance [id number] 2022 Private Health Insurance [id number] 2022 Self-pay [id number] 2005 Medicare MEDICARE MEDICAR E A AND B [id number] 2005-Present [phone] [address] [address] [place] [address] Medicare [id number] 2005 Medicare [id number] 1959 Medicare [id number] 1959 Unknown [id number] 1940 Unknown [id number] [id number]. 593 1940 Unknown [id number] 2.16.840.1.166899.3.579.2. 593 1940 Unknown [id number] 2.16.840.1.444746.3.579.2. 593 1940 Unknown [id number] 2.16.840.1.763230.3.579.2. 593 1940 Unknown [id number] 2.16.840.1.892054.3.579.2. 593 1940 Unknown [id number] 2.16.840.1.426650.3.579.2. 593 1940 Unknown [id number] 2.16.840.1.737685.3.579.2. 1259 1940 Unknown [id number] 2.16.840.1.641930.3.579.2. 1259 1940 Unknown [id number] 2.16.840.1.575664.3.579.2. 1259 1940 Unknown [id number] 2.16.840.1.569276.3.579.2. 1259 1940 Unknown [id number] 2.16.840.1.593997.3.579.2. 1259 1940 Unknown [id number] 2.16.840.1.953637.3.579.2. 1259 1940 Unknown [id number] 2.16.840.1.743184.3.579.2. 1259 Unknown [id number] 2.16.840.1.180631.3.579.2. 531 Unknown [id number] 2.16.840.1.611395.3.579.2. 531 Unknown [id number] 2.16.840.1.892042.3.579.2. 531 Unknown [id number] 2.16.840.1.193230.3.579.2. 531 Unknown [id number] 2.16.840.1.849757.3.579.2. 531 Social History Date Type Detail Facility Tobacco smoking stat us OKIS Unknown if ever smoked [facility] Work Phone: Start: 1940 Sex Assigned At Female F [facility] Start: 03-09-2022 End: 02-15-2024 Tobacco smoking status OKIS Never smoked tobacco (finding) [facility] Start: 02-15-2024 End: 02-18-2025 Sex Assigned At aihuishou Other Start: 05-17-2022 Tobacco smoking stat [facility] Tobacco smoking consumption unknown [facility] Start: 1940 Sex Assigned At Not on file C [facility] Start: 05-07-2022 End: 08-23-2022 Exposure to SARS-CoV-2 (event) Not sure [facility] Start: 02-15-2024 End: 10-24-2024 Tobacco use and exposure Smokeless tobacco non-user [facility] Start: 02-15-2024 End: 05-22-2025 Alcoholic beverage intake Lifetime non-drinker (finding) [facility] Start: 02-15-2024 End: 02-18-2025 History of Social function [facility] Start: 02-15-2024 Alcohol Comment coffee: 1-2 daily NO [facility] Has the electric, [employer], [email or web address], or water company threatened to shut off services in your home in past 12Mo No [facility] (I/We) worried whesarah er (my/our) food would run out before (I/we) got money to buy more. Never true [facility] In the past 12 month s, has lack of transportation kept you from medical appointments or from getting medications? No [facility] Start: 11-02-2024 Gender identity Identifies as female gender (finding) [facility] NEGATED: Highlighted rowStart: FLOR History of tobacco use Passive smoker [facility] Medical Equipment Procedure Code Equipment Code Equipment Origin al Text Equipment Identifier Dates [id number] Start: 12-03-2024 End: 12-03-2025 Goals Date Patient Goal Desired Activity /State Functional Status Date Assessment Result Facility 02-18-2025 Patient Health Questionnaire 2 item (PHQ-2) [Reported] [facility] 10-21-2024 Are you deaf, or do you have serious difficulty hearing No 10/21/2024 6:01 PM Izabel Longo RN No [facility] 10-21-2024 Are you blind, or do you have serious difficulty seeing, even when wearing glasses No 10/21/2024 6:01 PM Izabel Longo RN No [facility] 10-21-2024 Do you have serious difficulty walking or climbing stairs No 10/21/2024 6:01 PM Izabel Longo, ELFEGO [facility] 10-21-2024 Do you have difficul ty dressing or bathing No 10/21/2024 6:01 PM Izabel Longo, ELFEGO [facility] 10-21-2024 Because of a physica l, mental, or emotional condition, do you have difficulty doing errands alone such as visiting a physician's office or shopping No 10/21/2024 6:01 PM Izabel Longo RN No [facility] 04-15-2022 Functional status Patient is 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 Baseline [facility] Work Phone: 03-28-2022 Functional status Patient is 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 Baseline [facility] Work Phone: 03-24-2022 Functional status Patient Not at Baseline [facility] Work Phone: [facility] Mental Status Date Assessment Result Facility 10-21-2024 Because of a physica l, mental, or emotional condition, do you have serious difficulty concentrating, remembering, or making decisions No 10/21/2024 6:01 PM Izabel Longo, ELFEGO No [facility] 04-15-2022 Cognitive function Cognitive Sta tus Patient at Baseline [facility] Work Phone: 03-28-2022 Cognitive function Cognitive Sta tus Patient at Baseline [facility] Work Phone: 03-24-2022 Cognitive function Cognitive Sta tus Patient Not at Baseline [facility] Work Phone: Clinical Notes 03-23-2022 to 05-22-2025 Galindo Miller, RONNIE - 05/22/2025 10:30 AM Jasen Miller, RONNIE - 05/22/2025 6:30 AM Jasen Miller, [employer] - 05/22/2025 6:30 AM EDDuarte Miller, [employer]ING [employer]ER - 05/22/2025 6:29 AM EDTPatient Instructions Note Date & Type Note Facility 05-22-2025 History of Present illness Narrative Images from the original note were not included. Saeed Sarabia is a 84 y.o. female presents with chief complaint of Diabetes HPI: Diabetes She presents for her follow-up diabetic visit. She has type 2 diabetes mellitus. Her disease course has been stable. Pertinent negatives for hypoglycemia include [...] being taken. She does not see a erp technical lead.Eye exam is current. Hypertension This is a [...] no compliance problems. Hypertensive end-organ damage includes CAD/WA. There is no history of heart failure or PVD. SUBJECTIVE: MEDICATIONS: Current Outpatient Medications Medication Instructions Blood Glucose Monitoring Suppl (True Metrix Meter) w/Device kit USE DIRECTED bumetanide (BUMEX) 1 mg, Daily PRN cyanocobalamin (VITAMIN B-12) 1,000 mcg, Daily RT Drug Hessel Unilet Lancets 30G mis use to test BLOOD SUGAR DAILY Eliquis [...] Size: Adult long) Pulse 65 Temp 97.8 F (Temporal) Resp 18 Wt 157 lb 6.4 oz SpO2 96% BMI 27.02 kg/m Smoking Status Never BSA 1.8 m Physical Exam Vitals and nursing note [...] MG tablet metFORMIN (Glucophage) 1000 MG tablet Associated Problem(s): Hyperlipidemia On zetia and crestor Check [...] Call office if BS greater than 150 Associated Problem(s): Benign essential HTN Please check blood pressure daily and record DASH diet Limit caffeine Take medication as directed Contact office if chest pain, pressure, dizziness, shortness of breath, swelling legs Recommend slow position changes Current meds: lisinopril, metoprolol, spironolactone Associated Problem(s): Chronic atrial fibrillation, unspecified (HCC) Continue eliquis therapy as b donna therapy No current symptoms, NSR today Continue w cardiology Associated Problem(s): Type 2 diabetes mellitus with diabetic peripheral angiopathy without gangrene (HCC) Continue with risk factor modification and control blood glucose as well as BP Associated Problem(s): Type 2 diabetes mellitus with diabetic neuropathy, unspecified (HCC) Close monitoring of feet for s/s wounds, callous, or infection Good blood sugar control documented in this encounter [facility] 05-22-2025 Instructions Galindo Miller NP - 05/22/2025 10:30 AM EDT Glipizide 5mg pill: cut the pill in half, and only take 2.5mg twice a day with meal (breakfast and supper time), if blood sugars are running over 150 consistently call me documented in this encounter [facility] 02-18-2025 History of Present illness Narrative Associated [...] year: yes for mental status changes 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 Hypertensive end-organ damage includes CAD/WA. There is no history of heart failure. [...] being taken. She does not see a erp technical lead.Eye exam is current. SUBJECTIVE: MEDICATIONS: Current Outpatient Medications Medication Instructions Blood Glucose Monitoring Suppl (True Metrix Meter) w/Device kit USE DIRECTED bumetanide (BUMEX) 1 mg, Oral, Daily PRN cyanocobalamin (VITAMIN B-12) 1,000 mcg, Oral, Daily RT Drug Hessel Unilet Lancets 30G [facility] use to test BLOOD SUGAR DAILY Eliquis [...] brace as well for foot drop Hyperlipidemia ([facility]/HCC) On zetia and crestor Check labs yearly [...] mellitus with diabetic peripheral angiopathy without gangrene ([facility]) Continue with risk factor modification and control [...] up yearly and prn Associated Problem(s): Hyperlipidemia ([facility]) On zetia and crestor Check labs yearly [...] blood sugar control documented in this encounter [facility] 02-18-2025 Instructions Galindo Miller NP - 02/18/2025 10:30 AM EDT No labs needed, documented in this encounter [facility] 01-17-2025 Instructions Dinora Carroll APRN.CNP - 01/17/2025 10:47 AM EDT Thank you for seeing me in clinic today. As we discussed, my recommendations are as follows: 1.Consult to general surgery If you have any questions about the above treatment plan, please do not hesitate to call the office or send me a Mallstreethart message. documented in this encounter [facility] 01-17-2025 History and physical note Consultation requested [...] began experiencing abdominal pain. Initial evaluations at [facility] suggested the presence of multiple gallstones, with recommendations for cholecystectomy. However, subsequent evaluations by another physician at the same hospital contradicted this recommendation, stating that surgery was not necessary. After a week of hospitalization and multiple tests, no definitive cause for the abdominal pain was identified. Due to persistent severe pain, patient was taken to the [facility] Emergency Room, where further evaluations were conducted, including an endoscopy and various scans. A colonoscopy performed at [facility] revealed non-cancerous polyps, which were removed. During the evaluations at [facility], a scan indicated uterine thickening, leading to concerns about potential cancer. A bookkeeping machine mechanic at [facility] subsequently removed a polyp measuring 2 cm by 9 cm from the uterus and cervix. Following this procedure, patient's abdominal pain reportedly resolved. Patient has a known history of gallstones, with conflicting medical opinions on the necessity of cholecystectomy. One physician at [facility] recommended immediate surgery, stating the gallbladder was completely full of stones, while another physician at [facility] advised against it. Patient has also experienced significant unintentional weight loss, approximately 30 pounds over the past six months, but her weight has stabilized recently. She is diabetic and notes that her medication influences her appetite. She reportedly eats like a bird and drinks two 24-ounce cups of water daily, along with protein drinks. . Past Clinical Work-Up: RUQ 10/18/24: CHOLELITHIASIS. 11/13/24: Normal perianal and digital [...] weight loss. This note was dictated using [employer] speech recognition software and may contain some errors that were a result of the program not accurately transcribing what was dictated. The patient consented to the use of [employer] software for draft documentation of the visit consistent with [facility] s Notice of Privacy Practices. Dinora Carroll APRN.CNP [facility] 01-17-2025 History and physical note Consultation requested [...] began experiencing abdominal pain. Initial evaluations at [facility] suggested the presence of multiple gallstones, with recommendations for cholecystectomy. However, subsequent evaluations by another physician at the same hospital contradicted this recommendation, stating that surgery was not necessary. After a week of hospitalization and multiple tests, no definitive cause for the abdominal pain was identified. Due to persistent severe pain, patient was taken to the [facility] Emergency Room, where further evaluations were conducted, including an endoscopy and various scans. A colonoscopy performed at [facility] revealed non-cancerous polyps, which were removed. During the evaluations at [facility], a scan indicated uterine thickening, leading to concerns about potential cancer. A bookkeeping machine mechanic at [facility] subsequently removed a polyp measuring 2 cm by 9 cm from the uterus and cervix. Following this procedure, patient's abdominal pain reportedly resolved. Patient has a known history of gallstones, with conflicting medical opinions on the necessity of cholecystectomy. One physician at [facility] recommended immediate surgery, stating the gallbladder was completely full of stones, while another physician at [facility] advised against it. Patient has also [...] weight loss. This note was dictated using [employer] speech recognition software and may contain some errors that were a result of the program not accurately transcribing what was dictated. The patient consented to the use of [employer] software for draft documentation of the visit consistent with [facility] s Notice of Privacy Practices. Dinora Carroll APRN.CNP documented in this encounter [facility] 12-17-2024 Note HNO ID: [id number] Author: LUCIANA GREEN, DO Service: ? Author [...] 2. Postop restrictions reviewed. Luciana Green DO [facility] 12-17-2024 History of Present illness Narrative [...] 2. Postop restrictions reviewed. Luciana Green DO [employer] Research [employer] Strategic Analysis offered: Patient declines. documented in this encounter [facility] 12-17-2024 Note HNO ID: [id number] Author: CARA YOUNG MA Service: ? Author Type: Coil Cutter Type: Progress Notes Filed: 12/17/2024 12:51 Note Text: Svp Research And Strategic Analysis offered: Patient declines. [facility] 12-06-2024 Note HNO ID: [id number] Author: MARGARETTE TRIANA APRN.COPPER PLATER Service: ? Author Type: Nurse Hardware Design Engineer Type: Anesthesia Procedure Notes Filed: 12/06/2024 08:19 Note Text: ANESTHESIOLOGY PROCEDURE NOTE PIV General Information Procedure Start Time/Medication Administration: 12/06/2024 8:00 AM Procedure End Time: 12/06/2024 8:00 AM Patient Location: OR Staffing COPPER PLATER: Margarette Triana APRN.COPPER PLATER Performed by: PACO Preparation Sterility Preparation: hand hygiene performed prior to procedure, surgical cap used, mask used, skin prep agent completely dried prior to procedure Site Prep: chlorhexidine Procedure Details Indication: need for IV access Needle Size/Type: 20 gauge angiocath Orientation: Right Location: Wrist Imaging Guidance Used: No SIGNATURE: Margarette Triana APRN.COPPER PLATER PATIENT NAME: Saeed Sarabia DATE: December 06, 2024 TIME: 8:19 AM CSN: [id number] [facility] 12-06-2024 Note HNO ID: [id number] Author: MARGARETTE TRIANA APRN.COPPER PLATER Service: ? Author Type: Nurse Hardware Design Engineer Type: Anesthesia Procedure Notes Filed: 12/06/2024 08:18 Note Text: ANESTHESIOLOGY PROCEDURE NOTE Airway General Information Procedure Start Time/Medication Administration: 12/06/2024 7:45 AM Procedure End Time: 12/06/2024 7:45 AM Patient location during procedure: OR Patient identity confirmed: arm band and patient Staffing COPPER PLATER: Margarette Triana APRN.COPPER PLATER Performed by: PACO Indications and Patient Condition Indications for airway management: anesthesia Preoxygenated: yes anesthesia circuit Patient position: sniffing Method: sleep Difficult Mask: No Final Airway Details Final airway type: endotracheal airway Final Endotracheal Airway: ETT Cuffed: yes Successful intubation technique: video laryngoscopy Devices used: Massey Endotracheal tube insertion site: oral Blade size: #3 ETT size (mm): 7.0 Measured from: lips Measurement (cm): 21 Placement verified by: capnometry Cormack-Lehane Classification: grade I - full view of glottis Number of attempts at approach: 1 Airway not difficult Comments Atraumatic intubation. Dentition and lips remain the same as preop. SIGNATURE: Margarette Triana APRN.COPPER PLATER PATIENT NAME: Saeed Sarabia DATE: December 06, 2024 TIME: 8:17 AM CSN: [id number] [facility] 12-03-2024 History of Present illness Narrative Pt has surgery on Monday Pt needs a refill on her test strips *whatever insurance will cover Images from the original note were not included. aSeed Sarabia is a 84 y.o. female presents [...] Addressed This Visit Chronic atrial fibrillation, unspecified ([facility]/HCC) Continue eliquis therapy as b donna therapy No current symptoms, NSR today Continue w cardiology Benign essential HTN ([facility]/HCC) Please check blood pressure daily and record DASH diet Limit caffeine Take medication as directed Contact office if chest pain, pressure, dizziness, shortness of breath, swelling legs Recommend slow position changes Current meds: lisinopril, metoprolol, spironolactone Hyperlipidemia (CMS/HCC) On zetia and crestor Check labs yearly and prn dose chagnes Type 2 diabetes mellitus without complication ([facility]) Check blood sugars daily, notify if <70 [...] prn dose chagnes Associated Problem(s): Other thrombophilia (CMS/HCC) On eliquis Associated Problem(s): Type 2 diabetes [...] BP Associated Problem(s): Chronic atrial fibrillation, unspecified (CMS/HCC) [...] blood sugar control documented in this encounter [facility] 12-03-2024 Instructions Galindo Miller NP - 12/03/2024 9:00 AM EST No med dose changes documented in this encounter [facility] 11-15-2024 Note HNO ID: [id number] Author: MAXINE KABA RT(Josue) Service: ? Author Type: Technologist Type: Progress [...] PATIENT PRESENTS WITH AN IMPLANTABLE OR ATTACHED HISTOPATHOLOGIST: No RADIOLOGY DEPARTMENT: General X-ray: Exam(s) Completed: Chest X-Ray PERIPHERAL IV DATA: Not applicable SIGNED BY: RT Faith(R) November 15, 2024 2:41 PM [facility] 11-15-2024 History of Present illness Narrative [...] PATIENT PRESENTS WITH AN IMPLANTABLE OR ATTACHED HISTOPATHOLOGIST: No RADIOLOGY DEPARTMENT: General X-ray: Exam(s) Completed: Chest X-Ray PERIPHERAL IV DATA: Not applicable SIGNED BY: RT Faith(R) November 15, 2024 2:41 PM documented in this encounter [facility] 11-15-2024 Instructions Maxine Singh APRN.AUTO COLLISION REPAIR INSTRUCTOR - 11/15/2024 2:13 PM EST PATIENT PREOPERATIVE INSTRUCTIONS Luciana Green DO has scheduled you for your procedure at this surgery center: [facility]: [phone] --[id number] [address]. Please check in on the 1st floor [...] Instructions:N/A If you are currently using a [id number]-[id number] injectable or oral medication for diabetes or [...] NSAIDS as needed. STOP ELIQUIS 2 DAYS MD EOP Important Reminders: - If you use CPAP/BIPAP, bring the machine with you to the surgery center. - If you are prescribed inhalers for breathing, continue using them. If you are on dialysis, please check with your dialysis center or management aide to see if any adjustments need to [...] Procedures: - YOU MUST HAVE A RESPONSIBLE MAINTENANCE JOB TITLES TAKE YOU HOME. A SOAKING PITS SUPERVISOR OR CUT OFF MACHINE OPERATOR CANNOT BE MADE A RESPONSIBLE MAINTENANCE JOB TITLES. - We recommend that a responsible person [...] Advance Directive, please fax a copy to [phone] or email to for it to be [...] into your chart that day. Maxine Singh APRN.AUTO COLLISION REPAIR INSTRUCTOR documented in this encounter [facility] 11-15-2024 History and physical note Images from the original note were not included. [facility] HISTORY AND PHYSICAL EXAMINATION SERVICE DATE: 11/14/2024 SERVICE TIME: 3:47 PM PRIMARY CARE PHYSICIAN: Galindo Miller CNP, LEXI Assessment Patient has the following medical conditions which may affect ashley-operative course: Atrial fibrillation (HCC) Assessment: takes Eliquis daily, will stop 2 days pre op,currently stable Benign essential HTN Assessment: takes Lisinopril,Metoprolol,stable BP 147/56 taken at [facility] visit 11/15/24 CAD (coronary artery disease) Assessment: had LAD stent placed 2005 followed per Improvement Lead Dr. Roberson DM type 2 (diabetes mellitus, type 2) ([facility]) Assessment: takes Metformin,Glipizide currently stable Glucose Date Value Ref Range Status 10/20/2024 135 (H) 74 - 99 mg/dL Final Comment: The [place] Diabetes Association (ADA) provides guidance for cutoff [...] Standards of Medical Care in Diabetes 2016, [place] Diabetes Association. Diabetes Care. 2016.39(Suppl 1). HLD (hyperlipidemia) Assessment: takes Vic Stewart, stable [place] Activity Status Index: METS: Walk indoors, such [...] large neck Non-male patient STOP-Bang Score: 1 [id number] Score: Age: >=75 Sex: female CHF history: No Hypertension history: Yes Stroke/TIA/thromboembolism history: No Vascular disease history: No Diabetes history: Yes [id number] Score: 5 ARISCAT Score: Age: >80 Preoperative [...] COVID-19 Immunization Status Overdue - Covid-19 Vaccine () Overdue since 06/09/2024 08/12/2022 Imm Admin: COVID-19 [...] fevers. Neurological: No history of TIA's, stroke, AUTO COLLISION REPAIR INSTRUCTOR tumor, impaired sensorium, hemiplegia, paraplegia or quadraplegia. [...] > 1 time per night or hematuria. CURRICULUM DEVELOPMENT COORDINATOR: Negative for abnormal vaginal bleeding, abnormal vaginal [...] 413 QTC Calculation (Bazett) 465 Calculated P [place] 97 Calculated R [place] -42 Calculated T [place] 100 Impression Sinus rhythm Atrial premature complex Borderline short MD interval Left bundle branch block Abnormal ECG No Stemi Confirmed by JASON SAGASTUME MD ([id number]) on 10/16/2024 4:13:30 PM Recent Results (from the past 93182 hour(s)) ECHO Collection Time: 03/29/22 3:52 PM [...] 14, 2024 TIME: 4:02 PM PAGER/CONTACT #: [facility] 11-15-2024 History and physical note Images from the original note were not included. [facility] HISTORY AND PHYSICAL EXAMINATION SERVICE DATE: 11/14/2024 SERVICE TIME: 3:47 PM PRIMARY CARE PHYSICIAN: Galindo Miller, TRIALS MANAGER, TRIALS MANAGER Assessment Patient has the following medical conditions which may affect ashley-operative course: Atrial fibrillation (HCC) Assessment: takes Eliquis daily, will stop 2 days pre op,currently stable Benign essential HTN Assessment: takes Lisinopril,Metoprolol,stable BP 147/56 taken at [facility] visit 11/15/24 CAD (coronary artery disease) Assessment: had LAD stent placed 2005 followed per Improvement Lead Dr. Roberson DM type 2 (diabetes mellitus, type 2) (HCC) Assessment: takes Metformin,Glipizide currently stable Glucose Date Value Ref Range Status 10/20/2024 135 (H) 74 - 99 mg/dL Final Comment: The [place] Diabetes Association (ADA) provides guidance for cutoff [...] Standards of Medical Care in Diabetes 2016, [place] Diabetes Association. Diabetes Care. 2016.39(Suppl 1). HLD (hyperlipidemia) Assessment: takes Vic Stewart stable Wallace Activity Status Index: METS: Walk [...] large neck Non-male patient STOP-Bang Score: 1 [id number] Score: Age: >=75 Sex: female CHF history: No Hypertension history: Yes Stroke/TIA/thromboembolism history: No Vascular disease history: No Diabetes history: Yes [id number] Score: 5 ARISCAT Score: Age: >80 Preoperative [...] Admin: COVID-19 vaccine, age 12+ yr, bivalent (Brightleaf-BIONTECH) 04/26/2022 Imm Admin: COVID-19 original vaccine, age 12+ yr, monovalent (Posterous - PURPLE TOP) 07/23/2021 Imm Admin: COVID-19 original vaccine, age 12+ yr, monovalent (Posterous - PURPLE TOP) Only the first 3 [...] fevers. Neurological: No history of TIA's, stroke, AUTO COLLISION REPAIR INSTRUCTOR tumor, impaired sensorium, hemiplegia, paraplegia or quadraplegia. [...] > 1 time per night or hematuria. CURRICULUM DEVELOPMENT COORDINATOR: Negative for abnormal vaginal bleeding, abnormal vaginal [...] 413 QTC Calculation (Bazett) 465 Calculated P [place] 97 Calculated R [place] -42 Calculated T [place] 100 Impression Sinus rhythm Atrial premature complex Borderline short MD interval Left bundle branch block Abnormal ECG No Stemi Confirmed by MITESH ABARCA, JASON ([id number]) on 10/16/2024 4:13:30 PM Recent Results (from the past 05340 hour(s)) ECHO Collection Time: 03/29/22 3:52 PM [...] PM PAGER/CONTACT #: documented in this encounter [facility] 11-13-2024 Note Patient: Saeed lanier Procedure Summary Date: 11/13/24 Room / Location: [facility] [place] Anesthesia Start: 1039 Anesthesia Stop: 1144 Procedure: [...] per anesthesia protocol. No notable events documented. [facility] 11-13-2024 Note H&P reviewed. The pa bunny was examined and there are no changes to the H&P. Here for evaluation of ongoing weight loss. Recent EGD was unremarkable. Discussed colonoscopy including risks of the procedure. We discussed that she was higher than average risk for perforation given her age and if that were to occur it could be life threatening. She expressed understanding of this and agreed to proceed. [facility] 11-13-2024 Note Patient: Saeed lanier Procedure Summary Date: 11/13/24 Room / Location: [facility] Anesthesia Start: 1039 Anesthesia Stop: Procedure: DIAGNOSTIC COLONOSCOPY Diagnosis: Abdominal pain, unspecified site Scheduled Providers: Bradford Davis MD; ROB Dumont; Alexis Arango MD Responsible Provider: Alexis Arango MD Anesthesia Type: MAC ASA Status: 4 Anesthesia Post Transport Note Transport to: [place] PACU O2 Route: room air Patient Monitor: direct observation Transport: uneventful Patient condition is: stable [facility] 11-13-2024 Note Patient: Saeed lanier Procedure Information Date/Time: 11/13/24 1130 Scheduled providers: Bradford Davis MD; ROB Dumont; Alexis Arango MD Procedure: DIAGNOSTIC COLONOSCOPY Location: [facility] Relevant Problems Cardio (+) Atrial fibrillation (CMS/HCC) [...] consented to blood products. Plan discussed with ROB. Additional Equipment Requests [facility] 11-07-2024 Telephone encounter Note Improvement Lead office called to give update from office visit today, see CareEverywhere: Preoperative evaluation for colonoscopy and uterine D&C: She can proceed at low to intermediate cardiac risk. She can hold Eliquis 2 days prior to the procedures and resume Eliquis afterwards. Please advise [facility] 11-07-2024 Miscellaneous Notes Improvement Lead office called to give update from office visit today, see CareEverywhere: Preoperative evaluation for colonoscopy and uterine D&C: She can proceed at low to intermediate cardiac risk. She can hold Eliquis 2 days prior to the procedures and resume Eliquis afterwards. Please advise documented in this encounter [facility] 11-07-2024 Note [place] [facility] Subjective Saeed Sarabia is a 84 y.o. year old female patient being seen for 9 mo follow up CAD, CHF, PAF, and hypertension. She needs clearance for colonoscopy scheduled 11/13/2024 at [facility] with Dr. Davis. Patient also states she needs clearance for D&C at [facility] for uterine polyp. Denies chest pain, SOB, [...] Psychiatric: Mood and (more content not included)... [facility] 11-05-2024 Telephone encounter Note Call place to patient who was identified by name and . Reviewed/Discussed DO Manpreet message in detail. Pt verbalized understanding and agreed with the plan. No questions or other concerns at this time. Rehan Rashid RN [facility] 11-05-[address] to patient [...] that I was unable to reach her industrial cleaner and to have them tell the industrial cleaner to review my note and that she is going to have surgery and they will need recs. Epic wont let me message him due to him being at [place] but we can see things in care everywhere. Luciana Chavez documented in this encounter [facility] 11-05-2024 Telephone encounter Note ----- Message from Luciana Green DO sent at 11/04/2024 4:08 PM EST ----- Regarding: chad Zelaya, Can you let this patient or her know that I was unable to reach her industrial cleaner and to have them tell the industrial cleaner to review my note and that she is going to have surgery and they will need recs. Epic wont let me message him due to him being at [place] but we can see things in care everywhere. Thanks, Luciana [facility] 11-04-2024 Note HNO ID: [id number] Author: LUCIANA GREEN DO Service: ? Author [...] OB History No obstetric history on file. [employer] History LMP: Postmenopausal Age at Menarche: Age at First : Age at Menopause: [employer] History Comments: Sexual Activity: Not Currently; No [...] well as surgical risks of DVT, PE, [place], . All questions and concerns were addressed. Pt is willing to accept a blood transfusion in the case of excessive blood loss. She is agreeable to Exam under anesthesia, operative hysteroscopy, dilation and curettage, polypectomy, possible blood transfusion and informed consent was obtained. - Will need cardiology clearance, tony foss. Will attempted to reach out to Dr. Roberson to make him aware. Pt has an appointment with him in the coming weeks. Orders: SURGICAL REQUEST - ELECTIVE (05/2020) Luciana Green DO Medical Decision Making: Problems: Moderate: New problem with uncertain prognosis Risk: Moderate: Decision on minor surgery w/ risk factors Medical Decision Making Level: 4 - Moderate [facility] 11-04-2024 History of Present illness Narrative [...] OB History No obstetric history on file. [employer] History LMP: Postmenopausal Age at Menarche: Age at First : Age at Menopause: [employer] History Comments: Sexual Activity: Not Currently; No [...] well as surgical risks of DVT, PE, [place], . All questions and concerns were addressed. Pt is willing to accept a blood transfusion in the case of excessive blood loss. She is agreeable to Exam under anesthesia, operative hysteroscopy, dilation and curettage, polypectomy, possible blood transfusion and informed consent was obtained. - Will need cardiology clearance, tony foss. Will attempted to reach out to Dr. Roberson to make him aware. Pt has an appointment with him in the coming weeks. Orders: SURGICAL REQUEST - ELECTIVE (05/2020) Luciana Green DO Medical Decision Making: Problems: Moderate: New problem with uncertain prognosis Risk: Moderate: Decision on minor surgery w/ risk factors Medical Decision Making Level: 4 - Moderate documented in this encounter [facility] 10-30-2024 Telephone encounter Note Spoke with patient's [...] recommended if clinical indicated. Gabriela Centeno MD [facility] 10-30-2024 Miscellaneous Notes Spoke with patient's Sammy [...] Gabriela Centeno MD documented in this encounter [facility] 10-30-2024 History of Present illness Narrative Images [...] Continue w cardiology Benign essential HTN (CMS/HCC) - Primary Please check blood pressure daily and record DASH diet Limit caffeine Take medication as directed Contact office if chest pain, pressure, dizziness, shortness of breath, swelling legs Recommend slow position changes Current meds: lisinopril, metoprolol, spironolactone Chronic diastolic (congestive) heart failure ([facility]) Continue with cardiology as well as diuretics, BONIFACIO and b donna Type 2 diabetes mellitus without complication ([facility]) Check blood sugars daily, notify if <70 [...] statin, A1c 6.1% on 08/20/2024 Other thrombophilia ([facility]) On eliquis Type 2 diabetes mellitus with diabetic neuropathy, unspecified ([facility]) Check blood sugars daily, notify if <70 [...] mellitus with diabetic peripheral angiopathy without gangrene ([facility]) Good glucose control, cont meds Abnormal ultrasound of endometrium Continue with CURRICULUM DEVELOPMENT COORDINATOR Will be having biopsy Delirium due to another medical condition Reviewed neurology notes Low MOCA score as well Alert in office, answers questions appropriately Endocervical polyp Noted on CURRICULUM DEVELOPMENT COORDINATOR exam and pelvic US Will get biopsy Endometrial polyp Seen on CURRICULUM DEVELOPMENT COORDINATOR exam and had US, will be having biopsy Vitamin B12 deficiency Started on supplement Unsure if contributing to her neuro status Associated Problem(s): Altered mental status Noted neuro notes Also had MRI brain Associated Problem(s): Other thrombophilia ([facility]/HCC) On eliquis Associated Problem(s): Vitamin B12 deficiency Started on supplement Unsure if contributing to her neuro status Associated Problem(s): Type 2 diabetes mellitus without complication ([facility]) Check blood sugars daily, notify if <70 [...] 08/20/2024 Associated Problem(s): Endometrial polyp Seen on CURRICULUM DEVELOPMENT COORDINATOR exam and had US, will be having biopsy Associated Problem(s): Endocervical polyp Noted on CURRICULUM DEVELOPMENT COORDINATOR exam and pelvic US Will get biopsy Associated Problem(s): Abnormal ultrasound of endometrium Continue with CURRICULUM DEVELOPMENT COORDINATOR Will be having biopsy Associated Problem(s): Thickened [...] answers questions appropriately documented in this encounter [facility] 10-30-2024 Instructions Galindo Miller NP - 10/30/2024 10:00 AM EST Keep fu appts Ask cardiology for refill nitroglycerin Await biopsy endometrial for next steps documented in this encounter [facility] 10-29-2024 Note HNO ID: [id number] Author: BRENDON DORSEY MD Service: ? Author Type: Physician Type: Progress Notes Filed: 10/29/2024 15:53 Note Text: [facility] New Patient Evaluation Date: October 29, 2024 Patient Name: Saeed Sarabia The [facility] was asked by to evaluate Saeed Sarabia. Our recommendations of care will be communicated by shared medical record. Reason for Evaluation/Chief complaint: memory concerns Accompanied by: SUBJECTIVE: HPI: Saeed Sarabia is a 84 year old Right handed female who presents to the [facility] for an initial evaluation. Patient has been [...] on file. N (more content not included)... [facility] 10-29-2024 History of Present illness Narrative Images from the original note were not included. [facility] New Patient Evaluation Date: October 29, 2024 Patient Name: Saeed Sarabia The [facility] was asked by to evaluate Saeed Sarabia. Our recommendations of care will be communicated by shared medical record. Reason for Evaluation/Chief complaint: memory concerns Accompanied by: SUBJECTIVE: HPI: Saeed Sarabia is a 84 year old Right handed female who presents to the [place] [facility] at [facility] for an initial evaluation. Patient has been [...] Answering questions appropriately. No dysarthria or hypophonia. [place] Cognitive Assessment (MoCA) Version 8.1 Total Score: 06/07 Visuospatial/Executive: 1 Namin/3 Attention: 0/6 Language: 0/3 Abstraction: 1/2 Delayed Recall: 0/5 Orientation: 3/6 Education less than or equal to 12th grade: +1 MIS Scoring/ Number of words recalled spontaneously: 0 x3: 0 Number of words recalled with a category cue: 1 x2: 2 Number of words recalled with a category cue: 3 x1: 3 Total MIS: 15 MoCA Past Scores 10/29/2024 MoCA MOCA TOTAL [...] loss assessment. She was recently admitted to [facility] and then at [facility] for Altered mental status. During first visit [...] which included preparing to see the patient, [id number] patient care, completing clinical documentation, obtaining and/or reviewing separately obtained history, performing a medically appropriate examination, counseling and educating the patient/family/caregiver, ordering medications, tests, or procedures, communicating with other HCPs (not separately reported), and independently interpreting results (not separately reported). Voice recognition software was used to compose this office note. Please excuse any unintended typographical errors. Brendon Dorsey MD [facility] 10/29/2024 1:25 PM CC: Referring Physician: No referring provider defined for this encounter. PCP: Galindo Miller, TRIALS MANAGER ([facility]) [address] [place] [address] Patient Entered Data: Patient-Reported No data to [...] data to display documented in this encounter [facility] 10-29-2024 Instructions Gabriela Centeno MD - 10/29/2024 [...] at any time. documented in this encounter [facility] 10-29-2024 Note HNO ID: [id number] Author: GABRIELA CENTENO MD Service: ? Author Type: Physician Type: Progress Notes Filed: 10/29/2024 20:34 Note Text: Saeed Sarabia is a 84 year old No obstetric history on file. here for SIS. Referred by: Luciana Green [id number] [id number] Chief Complaint: Thickened endometrium Endometrial Biopsy: No [...] for procedure results. Gabriela Centeno MD Ultrasound [facility] 10-29-2024 History of Present illness Narrative Saeed Sarabia is a 84 year old No obstetric history on file. here for SIS. Referred by: Luciana Green [id number] [id number] Chief Complaint: Thickened endometrium Endometrial Biopsy: No [...] Centeno MD Ultrasound documented in this encounter [facility] 10-24-2024 Note HNO ID: [id number] Author: LUCIANA GREEN DO Service: ? Author [...] OB History No obstetric history on file. [employer] History LMP: Age at Menarche: Age at First : Age at Menopause: [employer] History Comments: Sexual Activity: Not Currently; No [...] discussed with the Patient or Patient's Authorized Aircraft Ordnance Systems Mechanic. As applicable, any other physician, advance practice provider, medical student, or other health professional student that will be observing or involved in the sensitive examination for educational or training purposes was discussed with the Patient or Authorized Aircraft Ordnance Systems Mechanic. The Patient or Authorized Aircraft Ordnance Systems Mechanic has agreed to proceed with the sensitive [...] prior. Discussed this (more content not included)... [facility] 10-24-2024 History of Present illness Narrative [...] OB History No obstetric history on file. [employer] History LMP: Age at Menarche: Age at First : Age at Menopause: [employer] History Comments: Sexual Activity: Not Currently; No [...] discussed with the Patient or Patient's Authorized Aircraft Ordnance Systems Mechanic. As applicable, any other physician, advance practice provider, medical student, or other health professional student that will be observing or involved in the sensitive examination for educational or training purposes was discussed with the Patient or Authorized Aircraft Ordnance Systems Mechanic. The Patient or Authorized Aircraft Ordnance Systems Mechanic has agreed to proceed with the sensitive [...] which included preparing to see the patient, [id number] patient care, completing clinical documentation, obtaining and/or reviewing separately obtained history, and counseling and educating the patient/family/caregiver. Svp Research And Strategic Analysis offered: Patient declines. documented in this encounter [facility] 10-24-2024 Note HNO ID: [id number] Author: CARA YOUNG MA Service: ? Author Type: Coil Cutter Type: Progress Notes Filed: 10/24/2024 15:36 Note Text: Svp Research And Strategic Analysis offered: Patient declines. [facility] 10-21-2024 Note HNO ID: [id number] Author: ROLANDA CHAPARRO APRN.CNP Service: General Internal Medicine Author Type: Nurse Practitioner Type: Progress Notes Filed: 10/30/2024 07:40 Note Text: Documentation Query Please clarify the Type of encephalopathy Dementia with Encephalopathy, please specify type metabolic This document will become part of the patient's medical record. [facility] 10-21-2024 Note HNO ID: [id number] Author: KIANNA CHAVEZ APRN.CNP Service: Gastroenterology Author Type: Nurse Practitioner Type: Plan of Care Filed: 10/21/2024 14:32 Note Text: DEPARTMENT OF GASTROENTEROLOGY AND HEPATOLOGY [facility] INPATIENT VISIT DATE AND TIME 10/21/24 [...] and re-consult as needed. SIGNATURE: Kianna Chavez APRN.TRIALS MANAGER PAGER/CONTACT #: [phone] [facility] 10-19-2024 Note HNO ID: [id number] Author: GISSELL TAPIA MD Service: Hospital Medicine Author Type: Physician Type: Progress Notes Filed: 10/19/2024 12:12 Note Text: ROU PROGRESS NOTE SERVICE DATE: 10/19/2024 SERVICE TIME: 11:40 AM Hospital Medicine/Primary Attending: Gissell Tapia MD Subjective INTERVAL HPI: per pts -pt with hallucinations , has had hallucinations while at [place] seeing bugs crawling on the wall She has not been driving for 2.5 yrs due to the foot drop , recently failed the BMV testing for vision as she could not follow the commands Per pt has been confused since sep 17 2024 which is new for her , was admitted in [place] , had some improvement for 4-5 days [...] (POA: Yes) Patient had recent admission to [facility] on 09/17/2024 with concern for cholecystitis and [...] October 19, 2024 TIME: 11:40 AM etx [id number] [facility] 10-19-2024 Note HNO ID: [id number] Author: SUDHIR SANTOS LISW Service: Care Management Author Type: Accounting Lecturer Type: Care Mgt Progress Note Filed: 10/19/2024 10:19 Note Text: CARE MANAGEMENT PROGRESS NOTE SERVICE DATE: 10/19/2024 SERVICE TIME: 10:18 AM LOS: 1 day Post-Acute Discharge Planning Patient Goal(s): General wellness, Be able to go home [place] of Choice Explained: [place] of Choice Given: No Reason Not Given: [...] DATE: October 19, 2024 TIME: 10:18 AM [facility] 10-18-2024 Note HNO ID: [id number] Author: DAWIT DORMAN MD Service: Hospital Medicine [...] AND Plan: -Patient had recent admission to [facility] on 09/17/2024 with concern for cholecystitis and [...] fibrillation (HCC) (POA: Yes) Assessment AND Plan: -Tony on hold after today for EGD on [...] discussed with: Pr (more content not included)... [facility] 10-18-2024 Note HNO ID: [id number] Author: HAL ALVAREZ MD Service: Neurology General [...] Neuro to sign off. Please page [place] [facility] [place] [phone] if any further questions or concerns. Hal Alvarez MD PGY-4 [facility] 10-17-2024 Note HNO ID: [id number] Author: MARTIN, ATUL, DO Service: General Internal Medicine Author Type: Physician Type: Plan of Care Filed: 10/17/2024 15:04 Note Text: The patient's right foot is swollen, red, hot and painful. An ultra sound of the right lower extremity was negative for DVT. Most likely developing a cellulitis of the right foot. No tinea pedis seen on exam. Initiate therapy with Ancef. [facility] 10-17-2024 Note HNO ID: [id number] Author: BRITNEY CHOUDHURY RN Service: Care Management Author Type: Registered Nurse Type: Care Mgt Initial Assessment Filed: 10/17/2024 09:26 Note Text: CARE MANAGEMENT: ASSESSMENT AND DISCHARGE PLAN SERVICE DATE: October 17, 2024 SERVICE TIME: 9:20 AM PCP: Galindo Miller CNP, CNP Primary Contact: Extended Emergency Contact Information Primary Emergency Contact: Sammy Sarabia Mobile Relation: Spouse Admission Status: Observation Insurance Provider: MEDICARE A AND B Discharge Planning requested by: Per Department Practice Potential Transition Plans Home Advance Directives Current Advance Directive: Health Care Power of Balance Wheel Screw Hole Tapper In Chart: No Banking Paralegal Attempted to Assist with AD Completion: Yes [...] d/c needs. HCPOA paperwok on file within Mobile System 7 and verified to be current as of date/time of this note: No Legal Next of Kin Hierarchy per [place] Revised Code: Legal Spouse- Sammy Sarabia [phone] Majority of Adult Children (consensus if possible) Parents Majority of Adult Siblings (consensus if possible) Nearest Blood Relative reports patient has HCPOA forms at home. Instructed that he can bring forms in to file. SIGNATURE: Britney Choudhury RN PATIENT NAME: Saeed Sarabia DATE: October 17, 2024 TIME: 9:19 AM [facility] 10-17-2024 Note HNO ID: [id number] Author: ATUL MARTIN DO Service: General Internal [...] This patient was recently discharged from the [facility] where she was evaluated for RLQ abdominal [...] also a reason for her hospitalization at [facility]. Per her she seems to [...] RN, Patient and Family/Significant Other: SIGNATURE: Atul Martin, DO DATE: October 17, 2024 TIME: 9:01 AM [facility] 10-16-2024 Note SARS-COV-2 (AGENT OF COVID-19) RNA: Not detected INFLUENZA A RNA: Not detected INFLUENZA B RNA: Not detected RESPIRATORY SYNCYTIAL VIRUS (RSV) RNA: Not detected [facility] Comment on above: Performed By: #### 9 [id number] ####[facility] [employer]ORY[employer] [id number] [address] [place] 10-16-2024 Note HNO ID: [id number] Author: BRIANA SCHWARZ PA-C Service: ? Author Type: Physician Beveler Type: Progress Notes Filed: 10/16/2024 12:57 Note Text: [facility] October 16, 2024 Saeed Isaacsreys 1940 Patient presents with: Abdominal Pain: X6 wks on and off, change in mental status x3 days Was recently treated for uti getting better then abd pain and admitted to [place] and then transferred to [place] and admitted for a week with gall [...] to ER due to the limitations of [facility] testing capabilities. The patient verbalized understanding and denies questions. Patient transported to Emergency Department by who refused transport Abd exam with lower abd pain no guarding no masses no rebound. The patient refused transfer to ER by ambulance. The patient was accompanied by and states that they feel safe to self transport. Advised of possible risks. Report called Briana Schwarz PA-C [facility] 10-16-2024 History of Present illness Narrative Images from the original note were not included. [facility] October 16, 2024 Saeed Nash Riparius 1940 Patient presents with: Abdominal Pain: X6 wks on and off, change in mental status x3 days Was recently treated for uti getting better then abd pain and admitted to [place] and then transferred to [place] and admitted for a week with gall [...] possible risks. Report called Briana Schwarz PA-C [facility] documented in this encounter [facility] 10-10-2024 History of Present illness Narrative Associated [...] office if worsens documented in this encounter [facility] 09-30-2024 History of Present illness Narrative Associated [...] to confusion, ultimately she was evaluated in [facility] ER, had CT scan head/abd/pelvis-see report and labs and transferred to [facility] for evaluation for gallbladder w [...] symptoms Continue w cardiology Benign essential HTN (CMS/HCC) Please check blood pressure daily and record DASH diet Limit caffeine Take medication as directed Contact office if chest pain, pressure, dizziness, shortness of breath, swelling legs Recommend slow position changes Current meds: lisinopril, metoprolol, spironolactone Unspecified diastolic (congestive) heart failure ([facility]) Continue with cardiology as well as diuretics, BONIFACIO and b donna Type 2 diabetes mellitus without complication ([facility]) Check blood sugars daily, notify if <70 [...] 2 diabetes mellitus with diabetic neuropathy, unspecified ([facility]) Check blood sugars daily, notify if <70 [...] on 08/20/2024 Acute cholecystitis Was transferred to [facility] for this, no surgery as of yet Will need to review notes Acute metabolic encephalopathy - Primary Was part of diagnosis when admitted to [facility] for gallballer resolved Thickened endometrium [...] Associated Problem(s): Acute cholecystitis Was transferred to [facility] for this, no surgery [...] Was part of diagnosis when admitted to [facility] for gallballer resolved documented in this encounter [facility] 09-30-2024 Instructions Galindo Miller NP - 09/30/2024 10:30 AM EST Keep appts with GI and Cardiology I will call first week of October to see what we want to do in regards to the thickening of the uterine wall documented in this encounter [facility] 09-21-2024 Note Hospital Medicine Discharge Summary Final Discharge Diagnosis: Suprapubic abdominal pain Metabolic encephalopathy Gastric ulcers Esophagitis, LA grade A Cholelithiasis Afib HTN T2DM CHF Admission Diagnosis: Acute cholecystitis [K81.0] Cholecystitis [K81.9] Hospital course: 83yoF who was admitted from [place] to [facility] on 09/17 for concern for cholecystitis. Patient was seen at [place] ED for abdominal pain and AMS. CT head was unremarkable but CT Abd showed signs concerning for cholecystitis with the presence of cholelithiasis. She was transferred to [facility] with General Surgery evaluation. HIDA [...] Surgery, and Neurology Dear Dr. Paul MD, Saeed is advised to follow up with you [...] Medications These medications were sent to [facility] - [address] [place] [address] [facility] [place] [address], [facility] [address] pantoprazole 40 mg EC tablet Saeed is [...] in this inte (more content not included)... [facility] 09-21-2024 Note Followed up with theodore sung and family to discuss her discharge plan. At this time they continue to decline home healthcare and SNF placement but are agreeable to following up with therapies as an outpatient . [facility] 09-21-2024 Note Physical Therapy Physical Therapy Treatment [...] chair alarm activated Assessment/Plan PT Assessment PT Assessment/MAMMAL CONTROL AGENT Summary: pt claudia therapy well, pt could [...] ADLs and tasks. (RESOLVED) 09/19/24 10/03/24 09/21/24 [facility] 09-20-2024 Note Patient: Saeed lanier Procedure Summary Date: 09/20/24 Room / Location: [facility] Main Operating Room Anesthesia Start: [...] no known notable events for this encounter. [facility] 09-20-2024 Note Occupational Therapy Occupational Therapy Treatment [...] Assessment OT Impairments Decreased ADL status OT Assessment/LUZMA Summary Pt would benefit from continued skilled therapy to improve cognition, safety awareness, activity tolerance. OT Education/Comments Safety awareness, re-orientation, LB dressing adaptive techniques Plan Level of assist 1 assist Treatment Interventions ADL retraining;Functional transfer training;Endurance training;Patient/family training;Neuromuscular reeducation;Compensatory technique education OT Plan Skilled OT OT Frequency 1 time per day until discharge & PRN OT Discharge Recommendations snf facility placement OT - Discharge Recommendations Placed Yes Outcome Assessments 09/20/24 0938 AM-PAC 6 Clicks Putting on and taking off regular lower body clothing? 2 Bathing(Including washing,rinsing,drying)? 2 Toiletin (more content not included)... [facility] 09-20-2024 Note Gastroenterology Latrell n of Care [...] We will arrange for outpatient repeat EGD. [facility] 09-20-2024 Note Occupational Therapy Name: Saeed Sarabia Date of : 1940 Today's Date: 09/20/24 Pt is unable to be seen for therapy at this time secondary to patient off the floor at this time for EGD per RN . Will check back and complete therapy session as appropriate. Check No Charge Time attempted: 0840A [facility] 09-20-2024 Note Hospital Medicine Daily Progress Note - 09/20/2024 8:14 AM; Room: [address] [place] [address] Admission: 09/17/2024 7:02 PM; Length of stay: 3 days THE HOSPITALIST TEAM PREFERS TO USE [employer] FOR NON-URGENT COMMUNICATION 7AM-7PM. IF I DO NOT RESPOND WITHIN 20 MINUTES OR URGENT MATTERS, PLEASE CALL THROUGH THE ASSISTANT DIRECTOR. FROM 7PM-7AM, PLEASE PAGE [phone](COVR). Code Status: Full Code Barriers to Discharge: [...] from last 7 days Lab Units 09/19/24 2109 09/19/24 1728 09/19/24 1215 09/19/24 0742 09/18/24202809/18/24 1803 POCT GLUCOSE mg/dL 140* 146* 198* 151* 154* 211* Historical Values: (Includes values prior to this admission) Lab Results Component Value Date TSH 0.04 (L) 09/18/2024 FREET4 1.38 09/18/2024 No results found for: LPCTTSPQ36 , IRON , TIBC , C3 , C4 , AUTUMN , CANCA , ASO , PSA , CEA , CA125 , CA199 , AFP , CA153 Imaging EGD Table formatting fr (more content not included)... [facility] 09-20-2024 Note Patient: Saeed lanier Procedure Information Date/Time: 09/20/24 0800 Scheduled providers: Shelly Ricks MD; ROB Dumont; Dania Sandoval MD Procedure: EGD Location: [facility] Main Operating Room Relevant Problems [...] risks discussed with patient. Plan discussed with CAA. Additional Equipment Requests [facility] 09-19-2024 Note Patient and family a re declining home healthcare and SNF. No discharge needs at this time. [facility] 09-19-2024 Note Attestation signed by Nitin Carroll [...] changes as necessary to ensure accurate documentation. [facility] General Surgery DAILY PROGRESS NOTE Subjective Saeed [...] Lab Units 09/19/24 0525 09/18/24 0720 09/17/24 1947 WBC AUTO 10*3/uL 10.39 6.54 7.10 HEMOGLOBIN [...] millicurie, intravenous, Once in imaging Imaging: CAT Alanis [facility] Pharm Narrative: [facility] CLINICAL HISTORY: 83-year-old with concern for cholecystitis. [...] purposes Ryan Rodríguez MD PGY-3 Surgery Resident [facility] 09-19-2024 Note Attestation signed by Cara Vogt PT at 09/19/2024 3:25 PM This service writer present and provided 1:1 supervision, direction of [...] until discharge & PRN PT Discharge Recommendations snf facility placement PT - Discharge Recommendations Placed Yes History of present illness Patient is a 83 y.o. female presenting from [facility] with c/o abdominal pain and AMS x4 days. Per facility report, [place] did not have a surgery bed available, so pt will be getting surgery at [facility]. Pt was diagnosed with cholelithiasis [...] 3 Help fro (more content not included)... [facility] 09-19-2024 Note [facility] Daily Progress Note - 09/19/2024 8:17 AM; Room: [address] [place] [address] Admission: 09/17/2024 7:02 PM; Length of stay: 2 days THE HOSPITALIST TEAM PREFERS TO USE Mobile System 7 CHAT FOR NON-URGENT COMMUNICATION 7AM-7PM. IF I DO NOT RESPOND WITHIN 20 MINUTES OR URGENT MATTERS, PLEASE CALL THROUGH THE ASSISTANT DIRECTOR. FROM 7PM-7AM, PLEASE PAGE [phone](COVR). Code Status: Full Code Barriers to Discharge: [...] last 7 days Lab Units 09/19/24 0742 09/18/24 2029 09/18/24 1803 09/18/24 1155 09/18/24 0752 09/17/24 2246 POCT GLUCOSE mg/dL 151* 154* 211* 170* 125* 129* Historical Values: (Includes values prior to this admission) Lab Results Component Value Date TSH 0.04 (L) 09/18/2024 FREET4 1.38 09/18/2024 No results found for: [id number] , IRON , TIBC , C3 , [...] Discharge Planning Expecte (more content not included)... [facility] 09-19-2024 Note Daily Case Managemen t Update [...] Reason for NPO: Answer: Operation/Procedure 09/18/24 1656 Physician Expected Discharge Date: 09/19/2024 Discharge Delays: PT Six Click Score: 13 OT Six Click Score: 17 PT Recommendations: OT Recommendations: snf facility placement (vs return home with 24 [...] for OT? Answer: Evaluate and treat 09/17/242216 [facility] 09-19-2024 Note Attestation signed by Nitin Carroll [...] changes as necessary to ensure accurate documentation. [facility] General Surgery DAILY PROGRESS NOTE Subjective No [...] millicurie, intravenous, Once in imaging Imaging: [place] Albertina [facility] Pharm Narrative: [facility] [...] Salvador Alcazar MD General Surgery Resident, PGY-2 [facility] 09-18-2024 Note Physical Therapy Can cellation Patient [...] pain medication and would like to rest. Dehydrogenation Operator Head relayed to RN, family's concern that patient [...] follow and initiate session Cara Vogt PT, MPT [facility] Acute Rehabilitation [facility] 09-18-2024 Note Hospital Medicine Daily Progress Note - 09/18/2024 8:44 AM; Room: [address] [place] [address] Admission: 09/17/2024 7:02 PM; Length of stay: 1 days THE HOSPITALIST TEAM PREFERS TO USE Mobile System 7 CHAT FOR NON-URGENT COMMUNICATION 7AM-7PM. IF I DO NOT RESPOND WITHIN 20 MINUTES OR URGENT MATTERS, PLEASE CALL THROUGH THE ASSISTANT DIRECTOR. FROM 7PM-7AM, PLEASE PAGE [phone](COVR). Code Status: Full Code Barriers to Discharge: [...] from last 7 days Lab Units 09/17/24 194 SODIUM mmol/L 136 POTASSIUM mmol/L 4.2 CHLORIDE mmol/L 102 CO2 mmol/L 24 BUN mg/dL 16 CREATININE mg/dL 0.68 GLUCOSE mg/dL 128* MAGNESIUM mg/dL 1.5* CALCIUM mg/dL 9.2 PHOSPHORUS mg/dL 3.3 Results from last 7 days Lab Units 09/17/24 194 AST U/L 15 ALT U/L 11 ALK PHOS U/L 43 BILIRUBIN TOTAL mg/dL 0.5 LIPASE U/L 27 Results from last 7 days Lab Units 09/18/24 0752 09/17/24 2246 POCT GLUCOSE mg/dL 125* 129* Historical Values: (Includes values prior to this admission) No results found for: PREALBUMIN , TSH , T3FREE , FREET4 , CORTISOL , FEV1 , QVG5WEZ , DLCO , RVSP , HDL , LDL No results found for: PNUAXUNR55 , IRON , TIBC , C3 , C4 , AUTUMN , CANCA , ASO , PSA , CEA , CA125 , CA199 , AFP , CA153 Imaging CT transfer of outside films This order has been auto-finalized and does not contain a result. Discharge Planning Expected Discharge Disposition: Home or Self Care () (pending PT/OT) OT Discharge Recommendations: snf facility placement (vs return home with 24 hour supervision and Home OT) Signed Kayleigh Rivera MD [facility] 09/18/2024 8:44 AM [facility] 09-18-2024 Note Occupational Therapy Occupational Therapy Evaluation [...] this date and pt agreeable. Time In: 754 Time Out: 821 General Subjective: Pt pleasant, cooperative, confused, questionable historian Family/Caregiver Present: No Patient Active Problem List Diagnosis Coronary arteriosclerosis Atrial fibrillation ([facility]/HCC) Diastolic heart failure ([facility]/HCC) Essential hypertension Hyperlipidemia Mitral valve regurgitation Type 2 diabetes mellitus without complication (CMS/HCC) Constipation Foot drop, right foot Right leg weakness Spinal stenosis Acute abdominal pain Acute metabolic encephalopathy Acute cholecystitis Cholelithiasis Past Medical History: Diagnosis Date Atrial fibrillation ([facility]/HCC) CHF (congestive heart failure) ([facility]/HCC) Coronary artery disease Diabetes mellitus ([facility]) Heart valve disease Hyperlipidemia Hypertension Past Surgical [...] Level of Function Prior Function Level of [place]: Independent with ADLs and functional transfers, Independent [...] 1: To Transf (more content not included)... [facility] 09-18-2024 Note Physical Therapy Evaluation--Cancellation Patient Name: Saeed Sarabia Today's Date: 09/18/2024 Admit Date: 09/17/2024 Patient admitted w/ abdominal pain. CT scan at OSH indicated possible cholelithiasis. Patient transferred for surgical consult. Patient is currently NPO. Dehydrogenation Operator Head anticipates patient to have change in mobility status if surgery is performed. Will await surgery consult and evaluate when appropriate. History of present illness Patient is a 83 y.o. female presents from [facility] w/ c/o abdominal pain and AMS x [address] [place] performed CT scan of abdomen that found acute vs chronic cholecystitis and cholelithiasis. Transferred to [facility] for sx. Recent UTI Past Medical History DM, HLD, HTN, gallstones, a-fib, HF, CAD, back sx, foot drop, inability to ambulate Current Diagnoses Acute cholecystitis/nephrolithiasis Cara Vogt PT, [facility] Acute Rehabilitation [facility] 09-18-2024 Note Attestation signed by Nitin Carroll [...] changes as necessary to ensure accurate documentation. [facility] General Surgery DAILY PROGRESS NOTE Subjective No [...] Alem Tatum MD General Surgery Resident, PGY-1 [facility] 09-17-2024 Note Hospital Medicine History and Physical 09/17/2024 10:18 PM THE HOSPITALIST TEAM PREFERS TO USE Mobile System 7 CHAT FOR NON-URGENT COMMUNICATION 7AM-7PM. IF I DO NOT RESPOND WITHIN 20 MINUTES OR URGENT MATTERS, PLEASE CALL THROUGH THE ASSISTANT DIRECTOR. FROM 7PM-7AM, PLEASE PAGE [phone](COVR). Chief Complaint Chief Complaint Patient presents with Abdominal Pain Transferred from [facility]; will be getting surgery at [facility] Altered Mental Status History of Present Illness Saeed Sarabia is an 83 y.o. female who came from [facility] emergency room with Abdominal pain diagnosed with cholelithiasis and acute cholecystitis. Patient is also confused. Past medical history significant for; diabetes type 2, hypertension, CAD with stents, HLD, atrial fibrillation on Eliquis, history of lumbar stenosis and lower back pain, history of foot drop and inability to ambulate. Patient was transferred from ER at [facility] to [facility] for evaluation and treatment of [...] of maximal intensity. Prior to transfer from [facility] CT scan of the head was unremarkable [...] with ambulation). Psychiatric/Be (more content not included)... [facility] 09-17-2024 Note Relevant Hx: CT scan completed at [facility] on 09/17/24 indicated cholecystitis and cholelithiasis Today's Plan: Discussed with Dr. Lombardi, not clear that her abdominal pain is due to acute cholecystitis as lipase, bilirubin, WBC are all WNL and physical exam findings do not correlate well with cholecystitis. Will have CT imaging of abdomen transferred from [facility] and order HIDA scan to further evaluate, as well as obtain ionized calcium, magnesium, and phosphorus labs. Recommend medicine admit and NPO status while waiting for HIDA scan. No associated orders from this encounter found during lookback period of 72 hours. [facility] 08-20-2024 History of Present illness Narrative Images [...] compliance problems. There is no history of CAD/WA, CVA or retinopathy. SUBJECTIVE: MEDICATIONS: Current Outpatient [...] in dizziness and possible fall Coronary arteriosclerosis ([facility]) Cont statin, b donna Unspecified diastolic (congestive) heart failure ([facility]) Continue with cardiology as well as diuretics, BONIFACIO and b donna Type 2 diabetes mellitus without complication ([facility]) - Primary Check blood sugars daily, notify [...] device (Completed) Basic metabolic panel Other thrombophilia ([facility]) Continue with eliquis Relevant Orders CBC and differential Peripheral vascular disease, unspecified ([facility]) Continue current meds Control of BP as well as DM Type 2 diabetes mellitus with diabetic neuropathy, unspecified ([facility]) Recommend tight blood glucose control Other Visit Diagnoses Type 2 diabetes mellitus without complications ([facility]) Relevant Medications glipiZIDE (Glucotrol) 5 MG tablet metFORMIN (Glucophage) 1000 MG tablet Other Relevant Orders POCT glycosylated hemoglobin (Hb A1C) docked device (Completed) Basic metabolic panel Associated Problem(s): Other thrombophilia ([facility]) Continue with eliquis Associated Problem(s): Type 2 diabetes mellitus without complication ([facility]) Check blood sugars daily, notify if <70 [...] blood glucose control documented in this encounter [facility] 08-20-2024 Instructions Galindo Miller NP - 08/20/2024 9:20 AM EST Monitor blood pressure at home, if consistent higher than 140/90 let me know documented in this encounter [facility] 02-02-2024 Note [place] [facility] - [facility] Subjective Saeed Sarabia is a [...] the morning., Disp: (more content not included)... [facility] 09-07-2022 Miscellaneous Notes Images from the original note were not included. [facility] d/c note reviewed: Discharge summary uploaded to [employer]. documented in this encounter [facility] 08-23-2022 History of Present illness Narrative SPINE [...] 9:09 AM PAGER: documented in this encounter [facility] 08-10-2022 History of Present illness Narrative Patient [...] for its avalibilty documented in this encounter [facility] 07-29-2022 Miscellaneous Notes Paperwork uploaded via [employer]. Sent to Luis Adam for review and signature. Copies faxed to [facility] @ [phone] and onbase. Dinora Fisher RN SURGERY data acquisition technician Calling: Fax received from [facility] Dirk Villareal PT Is Patient Requesting Appointment?: No Is Patient Calling due to Pain?: No Is Patient Requesting Medication?: No General Concerns: Physical Therapy Recertification Note to be signed and returned by fax to [phone]. Patient of: Dr. Sears documented in this encounter [facility] 06-16-2022 Miscellaneous Notes Paperwork uploaded via [employer] and sent to Luis Adam for review and signature. Copies faxed to [facility] at [phone] per request and onbase. Dinora Fisher RN Form received: From (agency / facility / parent): [facility] personal banking assistant (if given): none given Phone #: [phone] Fax # : [phone] Email: Information requested: Discharge Physician Orders (Radha) Patient of Dr. Sears documented in this encounter [facility] 05-26-2022 Miscellaneous Notes Forms uploaded via [employer]. Sent to Dr. Sears for review and signature. Copies faxed to [facility] at number provided and onbase. Dinora Fisher RN Form received: From (agency / facility / parent): [facility] personal banking assistant (if given): none given Phone #: [phone] Fax # : [phone] Email: Information requested: Physician Orders (Radha) Patient of Dr. Sears documented in this encounter [facility] 05-17-2022 History of Present illness Narrative SPINE [...] Juice Sears MD documented in this encounter [facility] 05-12-2022 Miscellaneous Notes Forms uploaded via [employer]. Sent to Dr. Sears for review and signature. Copies faxed to [facility] at [phone] and onbase. Dinora Fisher RN Form received: From (agency / facility / parent): [facility] personal banking assistant (if given): Phone #: [phone] Fax # : [phone] Email: Information requested: Physicians orders Patient of Dr. Sears Forwarded to nurse. documented in this encounter [facility] 05-06-2022 Miscellaneous Notes POC paperwork uploaded to [employer] and sent to Dr. Sears for review and signature. [facility] [phone] and onbase. Dinora Fisher RN SURGERY data acquisition technician Calling: [facility] Is Patient Requesting Appointment?: No Is Patient Calling due to Pain?: No Is Patient Requesting Medication?: No General Concerns: Plan of Care 04/17/22 - 06/15/22 Patient of: Dr. Sears documented in this encounter [facility] 04-29-2022 Miscellaneous Notes Spoke to Mojgan from [facility] regarding plan of care - explained that Dr. Platt will not typically follow patients for extended recovery past the post surgical period. Saeed has a follow up appointment 05/17 - will discuss at this time if her home health plan of care needs to be transitioned to a different practitioner. Forms uploaded to [employer] and sent to Dr. Sears for review and signature. Copies faxed to [facility] [phone] and onbase. Dinora Fisher RN Form received: From (agency / facility / parent): [facility] personal banking assistant (if given): Mojgan Phone #: [phone] Fax # : SHANITA Ulrich [phone] Email: Information requested: Plan of care Patient of Dr. Sears documented in this encounter [facility] 04-22-2022 Miscellaneous Notes Forms received. Uploaded to [employer] and sent to Dr. Sears for review and signature. Copies sent to [facility] at fax [phone] and onbase. Dinora Fisher RN Form received: From (agency / facility / parent): [facility] personal banking assistant (if given): Saeed Nash Cornell Phone #: [phone] (home) Fax # : [phone] Email: Information requested: therapy evaluation and care plan Patient of Dr. sears documented in this encounter [facility] 04-20-2022 Miscellaneous Notes PT and home care orders faxed to listed contact and number below. Can fax orders to [phone] to Debbie Miller. Cris Leger RN at [facility] [phone], reports start of care for skilled nurse, [...] Dinora Fisher RN Orders placed Dimas Ferreira APRN.CNP Patient s/p 03/31/2022: L2-L5 laminectomy with Dr. Sears. Home health agency is requesting PT and home health order - per epic review, no orders seen in chart. Will forward to BLAYNE for review. Dinora Fisher RN SURGERY data acquisition technician Calling: Debbie Miller RNmanagement aide clinical team lead [facility] direct line Is Patient Requesting Appointment?: No Is Patient Calling due to Pain?: No Is Patient Requesting Medication?: No General Concerns: Requesting orders for home health PT and nurse to check on patient in the home. Patient of: Dr. Sears documented in this encounter [facility] 04-13-2022 Progress note Note Date/Time April 13, 2022 1:52pm [facility] [address] [place] [address] Physiatry(Rehab) Progress Note Signed Patient: Saeed Sarabia MR#: [id number] : 1940 Acct:[id number] Age/Sex: 81 / F Adm Date: 2 Loc: Room: [address] [place] [address] Type : ADM IN Attending Dr: Kingston Gao MD Copies to: ~ <Brooklyn Swanson APRN - Last Filed: 04/13/22 13:52> Date of Service: 04/13/2022 Subjective <Brooklyn Randolphyuediandra, OMID - Last Filed: 04/13/22 13:52> Subjective Narrative: Ms. Sarabia is a 81 year old female with medical history of type 2 diabetes, A. fib anticoagulated with Eliquis, CAD, hypertension, hyperlipidemia presents to inpatient rehabilitation for strengthening s/p lumbar decompression surgery. She initially presented to [facility] ER on 03/23/2022 with complaints of [...] She has had an MRI performed at [facility] with Dr. 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 She was scheduled to have a lumbar surgery, but it was cancelled. [facility] neurosurgery was consulted, as there was no neurosurg coverage at [facility] on the day of admission. She [...] mg 04/07/22 15:58 Bisacodyl 10 Mg Supp.Rect MD 04/07/23 15:57 DAILY PRN Constipation Bumetanide 0.5 [...] 15:58 Docusate Enema 283 Mg/5 Ml Enema MD 04/07/23 15:57 DAILY PRN Constipation Gabapentin 100 [...] equipment to enhance the patient's a functional confucianist Ensure adequate nutrition and hydration Sleep: Reports no issues Pain: Reports Tylenol provides sufficient relief. Occasional neuropathic pains in the right lower leg, may increase gabapentin as needed. Discharge planning: Home with End of this week. I spent greater than 15 minutes for services, including wxrx-vt-fwtg encounter with the patient, discussion of the case, plan of care, and exam; and jgzweqg-ul-xckt activities, such as reviewing pertinent [employer] consultant documentation, recent therapy notes, laboratory and radiology studies, and discussion of case with care team including physician, nursing, case sealer, and therapists. More than 50 % of [...] chart, including current orders, allied health and oracle webcenter consultant notes, labs/imaging and performed jacobs elements of exam and I formulated the plan of care and facilitated the medical decision making and confirmed the nurse practitioner note, as above Plan for home Monday with family FI went well today Documented By: Brooklyn Swanson APRN 04/13/22 1 342 Signed By: <Electronically signed by OMID Swanson> 04/13/22 1352 <Electronically signed by Kingston Gao MD> 04/13/221 [facility] Work Phone: 1(882) 119-526107-06-2022 Progress note Author Kingston Gao [facility] April 13, 2022 10:22am Note Date/Time April 13, 2022 10:15 am [facility] [address] [place] [address] Physiatry(Rehab) Progress Note Signed Patient: Saeed Sarabia MR#: [id number] : 1940 Acct:[id number] Age/Sex: 81 / F Adm Date: 2 Loc: Room: 4W0138-7 Type : ADM IN Attending Dr: Kingston Gao MD Copies to: ~ Date of Service: 04/12/2022 Subjective Subjective Narrative: Ms. Sarabia is a 81 year old female with medical history of type 2 diabetes, A. fib anticoagulated with Eliquis, CAD, hypertension, hyperlipidemia presents to inpatient rehabilitation for strengthening s/p lumbar decompression surgery. She initially presented to [facility] ER on 03/23/2022 with complaints of [...] She has had an MRI performed at [facility] with Dr. 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 She was scheduled to have a lumbar surgery, but it was cancelled. [facility] neurosurgery was consulted, as there was no neurosurg coverage at [facility] on the day of admission. She was accepted to [facility] and transferred non-emergently, since there was no [...] mg 04/07/22 15:58 Bisacodyl 10 Mg Supp.Rect MD 04/07/23 15:57 DAILY PRN Constipation Bumetanide 0.5 [...] 15:58 Docusate Enema 283 Mg/5 Ml Enema MD 04/07/23 15:57 DAILY PRN Constipation Gabapentin 100 [...] equipment to enhance the patient's a functional confucianist Ensure adequate nutrition and hydration Sleep: Reports no issues Pain: Reports Tylenol provides sufficient relief. Occasional neuropathic pains in the right lower leg, may increase gabapentin as needed. Discharge planning: Home with End of this week. Documented By: Kingston Gao MD 04/12/22 1012 Signed By: <Electronically signed by Kingston Gao MD> 04/13/22 1022 [facility] Work Phone: 1(329) 794-536907-01-2022 History and physical note Author Kingston Gao [facility] April 08, 2022 1:06pm Note Date/Time April 08, 2022 10:50 am [facility] [address] [place] [address] Physiatry (Rehab) H&P Signed Patient: Saeed Sarabia MR#: [id number] : 1940 Acct:[id number] Age/Sex: 81 / F Adm Date: 2 Loc: 5T Room: 4J6419-2 Type : ADM IN Attending Dr: Kingston aGo MD Copies to: OMID Walker MD Lisa J Aichholz, NP-C~ <Brooklyn Swanson APRN - Last Filed: 04/08/22 [...] lumbar decompression surgery. She initially presented to [facility] ER on 03/23/2022 with complaints of [...] She has had an MRI performed at [facility] with Dr. 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 She was scheduled to have a lumbar surgery, but it was cancelled. [facility] neurosurgery was consulted, as there was no neurosurg coverage at [facility] on the day of admission. She [...] complaints, except as documented Meds <Brooklyn Swanson, PLASTICS WORKER - Last Filed: 04/08/22 13:03> Medications [...] Bisacodyl (Bisacodyl 10 Mg Supp.Rect) 10 mg MD DAILY PRN PRN Reason: Constipation Stop: 04/07/23 [...] Enema 283 Mg/5 Ml Enema) 283 mg MD DAILY PRN PRN Reason: Constipation Stop: 04/07/23 15:57 Ezetimibe (Ezetimibe 10 Mg Tablet) 10 mg PO DAILY LAUREN Stop: 04/08/23 08:59 Last Admin: 04/08/22 09:48 Dose: 10 mg Documented by: Gabapentin (Gabapentin 100 Mg Capsule) 100 mg PO TID LAUREN Stop: 04/07/23 21:59 Last Admin: 04/08/22 09:48 Dose: 100 mg Documented by: Glipizide (Glipizide 5 Mg Tablet) 5 mg PO BID.WITH.MEALS LAUREN Stop: 04/07/23 16:59 [...] 5 Mg Tablet) 5 mg PO DAILY LAUREN Stop: 04/08/23 08:59 Last Admin: 04/08/22 09:48 Dose: 5 mg Documented by: Metformin HCl (Metformin 500 Mg Tablet) 500 mg PO BID.WITH.MEALS LAUREN Stop: 04/07/23 16:59 Last Admin: 04/08/22 09:48 Dose: 500 mg Documented by: Metoprolol Succinate (Metoprolol Succinate 100 Mg Tab.Er.24h) 100 mg PO DAILY [facility] Stop: 04/08/23 08:59 Last Admin: 04/08/22 09:48 [...] 12.5 Mg Tablet) 12.5 mg PO DAILY [facility] Stop: 04/08/23 08:59 Last Admin: 04/08/22 09:48 [...] % (Auto) 61.2 Lymph % (Auto) 26.1 Jessamine % (Auto) 9.4 Eos % (Auto) 2.7 Baso % (Auto) 0.6 Neut # (Auto) 4.7 Lymph # (Auto) 2.0 Jessamine # (Auto) 0.7 Eos # (Auto) 0.2 [...] MPV Neut % (Auto) Lymph % (Auto) Jessamine % (Auto) Eos % (Auto) Baso % (Auto) Neut # (Auto) Lymph # (Auto) Jessamine # (Auto) Eos # (Auto) Baso # [...] 24 hour daily monitoring and intervention from Manager Room as well as other consulting physicians including internal medicine as well as 24 hour daily news reporter nursing - for medical safe / optimal [...] equipment to enhance the patient's a functional confucianist Ensure adequate nutrition and hydration Sleep: Reports no issues Pain: Reports Tylenol provides sufficient relief. Occasional neuropathic pains in the right lower leg, may increase gabapentin as needed. Discharge planning: Home with in 7 to 10 days. I spent greater than 15 minutes for services, including koig-ux-unbc encounter with the patient, discussion of the case, plan of care, and exam; and kfkebov-bk-cbil activities, such as reviewing pertinent oracle webcenter consultant documentation, recent therapy notes, laboratory and radiology studies, and discussion of case with care team including physician, nursing, case sealer, and therapists. More than 50 % of [...] chart, including current orders, allied health and oracle webcenter consultant notes, labs/imaging and performed jacobs elements [...] equipment to enhance the patient's a functional confucianist Encourage deep breathing exercises and incentive spirometry RD evaluation Ensure adequate nutrition and hydration Discharge planning. Documented By: Brooklyn Swanson APRN 04/08/22 1 047 Signed By: <Electronically signed by Kingston Gao MD> 04/08/22 9457 [facility] Work Phone: 1(380) 458-831807-01-2022 Consult note Author Justyn Spann [facility] April 08, 2022 1:04pm Note Date/Time April 08, 2022 1:01p m [facility] [address] [place] [address] Hospitalist Consult Note Signed Patient: Saeed Sarabia MR#: [id number] : 1940 Acct:[id number] Age/Sex: 81 / F Adm Date: 2 Loc: Room: [address] [place] [address] Type : ADM IN Attending Dr: Kingston Gao MD Copies to: MD Kingston Stauffer MD Lisa J Aichholz, CURING PICKLING PACKER-C~ HPI DATE OF CONSULTATION: 04/08/22 REQUESTING PROVIDER: Kingston Gao Consult Narrative HPI: Patient is an 81-year-old female, with known history of spinal stenosis, who underwent spinal surgical intervention at [facility]. She has presented to our facility on 05 April, complaining of severe pain in the right lower extremity, foot drop, which was attributed to her known spinal stenosis. Arrangements were made, and the patient was transferred to [facility] for surgical care. The procedure was uncomplicated, [...] post spinal decompressive surgery for stenosis at [facility]. No complications. Further postoperative care per rehab [...] mg 04/07/22 15:58 Bisacodyl 10 Mg Supp.Rect MD 04/07/23 15:57 DAILY PRN Constipation Bumetanide 0.5 [...] 15:58 Docusate Enema 283 Mg/5 Ml Enema MD 04/07/23 15:57 DAILY PRN Constipation Ezetimibe 10 [...] Vial SUBCUT 04/09/22 21:01 5,000 unit Q12HR LARUEN Administration Lactulose 30 gm 04/07/22 15:58 Lactulose [...] % (Auto) 61.2, Lymph % (Auto) 26.1, Jessamine % (Auto) 9.4, Eos % (Auto) 2.7, Baso% (Auto) 0.6, Neut # (Auto) 4.7, Lymph # (Auto) 2.0, Jessamine # (Auto) 0.7, Eos # (Auto) 0.2, Baso # (Auto) 0.0, Nucleated RBC % (auto) 0.1 04/07/22 21:44: POC Glucose 161 04/07/22 17:16: POC Glucose 110 Documented By: Justyn Spann MD 04/08/22 1257 Signed By: <Electronically signed by Justyn Spann MD> 04/08/22 1304 [facility] Work Phone: 1(685) 521-353806-19-2022 Progress note Author Kieran Scott [facility] March 27, 2022 3:10pm Note Date/Time March 27, 2022 3:10 pm [facility] [address] [place] [address] Hospitalist Progress Note Signed Patient: Saeed Sarabia MR#: [id number] : 1940 Acct:[id number] Age/Sex: 81 / F Adm Date: 2 Loc: 4N Room: [address] [place] [address] Type : ADM INOo Attending Dr: Kieran [...] is still waiting to be transferred to [facility]. We still did not hear any open [...] Patient is waiting to be transferred to [facility]. We do not have any neurosurgical coverage [...] plenty RBC. We will try to use Onyx and repeat UA for today. Admission Assessment and Plan: Lumbar spinal stenosis/right foot drop Patient continues to have weakness in the right foot with numbness MRI lumbar spine from [facility] reviewed which showed L4-L5 disc desiccation, moderate diffuse disc bulge and ligamentum flavum hypertrophy and facet osteoarthropathy, severe central canal stenosis, moderate right and mild left foraminal stenosis, L5-S1 moderate to severe disc space narrowing with endplate sclerosis Patient has been accepted by neurosurgery at [facility] and is awaiting bed Family is upset that she does not have a bed available yet at [facility] and wants to go to [facility] if possible. Spoke to neurosurgery at [facility] who would like to see the patient on consult if accepted by medical service. Awaiting call from medical service. Chronic conditions: Atrial fibrillation-we will hold Eliquis at this point due to possible surgery Type 2 diabetes/hypertension?we will resume home medications CODE STATUS: Full code DVT prophylaxis: SCDs Documented By: Kieran Scott MD 03/27/22 1507 Signed By: <Electronically signed by Kieran Scott MD> 03/27/22 6260 [facility] Work Phone: 1(382) 187-524306-18-2022 Progress note Author Kieran Scott [facility] March 26, 2022 3:44pm Note Date/Time March 26, 2022 3:37 pm [facility] [address] [place] [address] Hospitalist Progress Note Signed Patient: Saeed Sarabia MR#: [id number] : 1940 Acct:[id number] Age/Sex: 81 / F Adm Date: 2 Loc: 4N Room: 0F2846-3 Type : ADM INOo Attending Dr: Kieran [...] is still waiting to be transferred to [facility]. We still did not hear any open [...] Patient is waiting to be transferred to [facility]. We do not have any neurosurgical coverage [...] [facility] We will continue with current medical therapy and plan as given below. Admission Assessment and Plan: Lumbar spinal stenosis/right foot drop Patient continues to have weakness in the right foot with numbness MRI lumbar spine from [facility] reviewed which showed L4-L5 disc desiccation, moderate diffuse disc bulge and ligamentum flavum hypertrophy and facet osteoarthropathy, severe central canal stenosis, moderate right and mild left foraminal stenosis, L5-S1 moderate to severe disc space narrowing with endplate sclerosis Patient has been accepted by neurosurgery at [facility] and is awaiting bed Family is upset that she does not have a bed available yet at [facility] and wants to go to [facility] if possible. Spoke to neurosurgery at [facility] who would like to see the patient on consult if accepted by medical service. Awaiting call from medical service. Chronic conditions: Atrial fibrillation-we will hold Eliquis at this point due to possible surgery Type 2 diabetes/hypertension?we will resume home medications CODE STATUS: Full code DVT prophylaxis: SCDs Documented By: Kieran Scott MD 03/26/22 152 Signed By: <Electronically signed by Kieran Scott MD> 03/26/22 0743 [facility] Work Phone: 1(614) 444-741306-17-2022 Progress note Author Rupert Anthony [facility] March 25, 2022 3:36pm Note Date/Time March 25, 2022 3:36 pm [facility] [address] [place] [address] Hospitalist Progress Note Signed Patient: Saeed Sarabia MR#: [id number] : 1940 Acct:[id number] Age/Sex: 81 / F Adm Date: 2 Loc: Room: [address] [place] [address] Type : ADM INOo Attending Dr: Rupert [...] Tizanidine 4 Mg Tablet PO 03/25/23 21:59 [facility] A&P - Hospitalist Assessment/Plan (1) Lumbar spinal stenosis: (2) Foot drop, right: Plan Lumbar spinal stenosis/right foot drop Patient continues to have weakness in the right foot with numbness MRI lumbar spine from [facility] reviewed which showed L4-L5 disc desiccation, moderate diffuse disc bulge and ligamentum flavum hypertrophy and facet osteoarthropathy, severe central canal stenosis, moderate right and mild left foraminal stenosis, L5-S1 moderate to severe disc space narrowing with endplate sclerosis Patient has been accepted by neurosurgery at [facility] and is awaiting bed Family is upset that she does not have a bed available yet at [facility] and wants to go to [facility] if possible. Spoke to neurosurgery at [facility] who would like to see the patient on consult if accepted by medical service. Awaiting call from medical service. Chronic conditions: Atrial fibrillation-we will hold Eliquis at this point due to possible surgery Type 2 diabetes/hypertension?we will resume home medications CODE STATUS: Full code DVT prophylaxis: SCDs Documented By: Rupert Anthony MD 03/25/22 8590 Signed By: <Electronically signed by Rupert Anthony MD> 03/25/22 8141 [facility] Work Phone: [phone]) 593-563406-17-2022 Consult note Author Yvrose Crocker [facility] March 25, 2022 10:12am Note Date/Time March 24, 2022 9:58 am [facility] [address] [place] [address] Neurology Consult Note Signed with Addenda Patient: Saeed Sarabia MR#: [id number] : 1940 Acct:[id number] Age/Sex: 81 / F Adm Date: 2 Loc: Room: [address] [place] [address] Type : ADM INOo Attending Dr: Rupert [...] does not have a bed assignment at [facility] today we can contact [facility] or [facility] for other options. Patient and state understanding and are agreeable. Addendum Documented By: JH Crocker 03/25/22 1012 Addendum Signed By: <Electronically signed by JH Crocker> 03/25/22 1012 HPI Consult Date: 03/24/22 Claims Collector: BLAKE Green with Dr Astorga Reason for [...] MRI scan of her lumbar spine at [facility] recently which prompted the surgery. She denies [...] compared to the left CEREBELLAR EXAM: * Qczbaz-dj-lqkh and alternating movements are intact and normal in bilateral upper extremities * Ehwh-od-bvip and alternating movements are intact and normal in the left lower extremity. 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 There is also evidence suggesting underlying chondrocalcinosis. No acute bony injury. Impression dictated by: Donny Wolf M.D.03/23/2022 8:02 PM Dictation Location: [place] [address] Assessment/Plan (1) Lumbar spinal stenosis: Code(s): M48.061 [...] of her lumbar spinein February at the [facility] which is available for review. She was exceptedat the [facility] and we are awaiting a bed. 1. MRI of the lumbar spine from [facility] reviewed. Awaiting a bed assignment at [facility]. I will defer further work-up to the [...] 1117 <Electronically signed by Colby Astorga DO> 03/24/222205 [facility] Work Phone: [phone]) 287-906806-16-2022 Progress note Author Rupert Anthony [facility] March 24, 2022 5:12pm Note Date/Time March 24, 2022 5:12 pm [facility] [address] [place] [address] Progress Note Signed Patient: Saeed Sarabia MR#: [id number] : 1940 Acct:[id number] Age/Sex: 81 / F Adm Date: 2 Loc: Room: [address] [place] [address] Type : ADM INOo Attending Dr: Rupert Anthony MD Copies to: ~ Date of Service: 03/24/2022 Progress Narrative Note PROGRESS NOTE Progress Note: Patient admitted last night for right foot drop. Patient has been accepted to [facility] by neurosurgery and is awaiting bed. Patient denies any pain in her right leg at this time. Continue current management. Neurology and neurosurgery has been consulted. Documented By: Rupert Anthony MD 03/24/221710 Signed By: <Electronically signed by Rupert Anthony MD> 03/24/221711 [facility] Work Phone: [phone]) 731-936806-16-2022 History and physical note Author Perlita Gautam [facility] March 24, 2022 4:44am Note Date/Time March 24, 2022 4:24 am [facility] [address] [place] [address] Hospitalist H&P Signed Patient: Saeed Sarabia MR#: [id number] : 1940 Acct:[id number] Age/Sex: 81 / F Adm Date: 2 Loc: Room: [address] [place] [address] Type : ADM IN Attending Dr: Perlita Braxton MD Copies to: MD Sarai Martin APRN Lisa J Aichholz, NP-Carlos~ HPI DATE OF EXAMINATION: 03/24/22 CHIEF COMPLAINT: [...] 19:25 Neut % (Auto) 49.2 % (.) 03/23/22 19:25 Lymph % (Auto) 38.7 % (.) 03/23/22 19:25 Jessamine % (Auto) 9.2 % (.) 03/23/22 19:25 Eos % (Auto) 2.3 % (.) 03/23/22 19:25 Baso % (Auto) 0.6 % (.) 03/23/22:25 Neut # (Auto) 4.2 x10E3/uL (1.8-7.7) 03/23/22 19:25 Lymph # (Auto) 3.3 x10E3/uL (1.00-4.8) 03/23/22:25 Jessamine # (Auto) 0.8 x10E3/uL (0.0-0.8) 03/23/22:25 Eos # (Auto) 0.2 x10E3/uL (0.0-0.45) 03/23/22: Baso # (Auto) 0.1 x10E3/uL (0.0-0.2) 03/23/22: Nucleated RBC % (auto) 0.0 % (0-0.5) 03/23/22: PT 15.7 Seconds (9.0-12.9) H 03/23/22 19:25 INR 1.4 03/23/22 19:25 APTT 32.2 Seconds (25.1-36.5) 03/23/22 19:25 PHA Creatinine Clear 46.80 03/23/22 19:25 Sodium 141 mmol/L (136-146) 03/23/22 19:25 Potassium 4.4 mmol/L (3.5-5.1) 03/23/22: Chloride 103 mmol/L (95-114) 03/23/22 19:25 Carbon [...] (6.1-7.9) 03/23/22 19:25 Albumin 3.6 gm/dL (3.2-5.5) 03/23/22:25 Globulin 3.2 gm/dL 03/23/22: Albumin/Globulin Ratio 1.1 03/23/22 19:25 Urine Color Yellow (Yellow) 03/23/22 19:45 Urine Appearance Clear (Clear) 03/23/22 19:45 Urine pH 7.5 (5.0-9.0) 03/23/22 19:45 Ur Specific [place] 1.017 (1.001-1.030) 03/23/22 19:45 Urine Protein Negative [...] ?ER physician spoke with Dr. Suarez at [facility] neurosurgery who accepted patient and is pending bed availability. According to ER physician conversationwith Dr. Cruz there was no concerns for Jonathancoby bello at this point. ?MRI from [facility] pending availability, showing L4-L5 severe stenosis with [...] plan of care and confirmed the resident's/international editorial producer/medical student's dictation/written note. Documented By: Sarai Singletary APRN 03/24/22 0407 Signed By: <Electronically signed by OMID Singletary> 03/24/22 0438 <Electronically signed by Perlita Braxton MD> 03/24/22 0444 [facility] Work Phone: [phone] Evaluation note* Encounter Date Diagnosis Assessment Notes Treatment Notes Treatment Clinical Notes Mar, Right foot drop (ICD-10 - M21.371) Patient was referred to the emergency room for emergency evaluation in anticipation of probably being transferred to a tertiary center. Mar, Spinal stenosis, lumbar region with neurogenic claudication (ICD-10 - M48.062) aihuishou Other evaluation noteNo assessment information available [facility] Work Phone: Evaluation note* Diagnosis Onset Date Resolution Status Foot drop, right acute Lumbar spinal stenosis acute [facility] Work Phone: Evaluation note* Diagnosis Onset Date Resolution Status Foot drop, right acute Lumbar spinal stenosis acute Atrial fibrillation acute Diabetes acute Foot drop, right acute Hyperlipidemia acute Hypertension acute Impaired mobility and activities of daily living acute S/P lumbar laminectomy acute [facility] Work Phone: Evaluation note* Diagnosis Spinal stenosis of lumbar region, unspecified whether neurogenic claudication present- Primary documented in this encounter [facility]* Diagnosis Spinal stenosis of lumbar region, unspecified whether neurogenic claudication present- Primary Right leg weakness Other musculoskeletal symptoms referable to limbs [facility] Diagnosis Acquired talipes equinovalgus of right foot- Primary Foot drop, right foot [facility] Diagnosis Foot drop, right foot- Primary [facility]* Diagnosis Encounter for subsequent annual wellness visit (AWV) in Medicare patient- Primary Benign essential HTN (CMS/HCC) Chronic atrial fibrillation (HCC) (CMS/HCC) Atrial fibrillation Type 2 diabetes mellitus without complication, without long-term current use of insulin (CMS/HCC) Mixed hyperlipidemia (CMS/HCC) Mixed hyperlipidemia Abnormal thyroid blood test Type 2 diabetes mellitus without complication, without long-term current use of insulin (CMS/HCC) [facility] Diagnosis Encounter for subsequent annual wellness visit (AWV) in Medicare patient- Primary Benign essential HTN (CMS/HCC) Chronic atrial fibrillation (HCC) (CMS/HCC) Atrial fibrillation Type 2 diabetes mellitus without complication, without long-term current use of insulin (CMS/HCC) Mixed hyperlipidemia (CMS/HCC) Mixed hyperlipidemia Abnormal thyroid blood test Type 2 diabetes mellitus without complications (CMS/HCC) [facility]* Diagnosis Encounter for subsequent [...] Coronary atherosclerosis of unspecified type of vessel, [place] or graft Type 2 diabetes mellitus without complications (CMS/HCC) documented in this encounter [facility]* Diagnosis Encounter for subsequent [...] Coronary atherosclerosis of unspecified type of vessel, [place] or graft Type 2 diabetes mellitus without complications (CMS/HCC) UTI symptoms- Primary Vaginal yeast infection Candidiasis of vulva and vagina documented in this encounter [facility]* Diagnosis Encounter for subsequent [...] Coronary atherosclerosis of unspecified type of vessel, [place] or graft Type 2 diabetes mellitus without complications (CMS/HCC) Hypernatremia- Primary Hyperosmolality and/or hypernatremia documented in this encounter [facility]* Diagnosis Encounter for subsequent [...] Coronary atherosclerosis of unspecified type of vessel, [place] or graft Type 2 diabetes mellitus without complications (CMS/HCC) Type 2 diabetes mellitus without complication, without long-term current use of insulin (CMS/HCC)- Primary Acute metabolic encephalopathy Type 2 diabetes mellitus with diabetic neuropathy, without long-term current use of insulin (CMS/HCC) Chronic atrial fibrillation (HCC) ([facility]/HCC) Atrial fibrillation Benign essential HTN (CMS/HCC) Chronic diastolic congestive heart failure (CMS/HCC) Acute cholecystitis Thickened endometrium Nonspecific (abnormal) findings on radiological and other examination of genitourinary organs Acute gastric ulcer without hemorrhage or perforation Acute gastric ulcer without mention of hemorrhage, perforation, or obstruction documented in this encounter [facility]* Diagnosis Encounter for subsequent annual wellness visit (AWV) in Medicare patient- Primary Benign essential HTN (CMS/HCC) Chronic atrial fibrillation (HCC) ([facility]/HCC) Atrial fibrillation Type 2 diabetes mellitus [...] Coronary atherosclerosis of unspecified type of vessel, [place] or graft Type 2 diabetes mellitus without [...] without complications (CMS/HCC) documented in this encounter [facility]* Diagnosis Encounter for subsequent [...] Coronary atherosclerosis of unspecified type of vessel, [place] or graft Type 2 diabetes mellitus without [...] of other sinus [facility]* Diagnosis Spinal stenosis- Primary Spinal stenosis, unspecified region other than cervical Atrial fibrillation, unspecified type (HCC) Diastolic heart failure, unspecified HF chronicity (HCC) Atherosclerosis of [place] coronary artery without angina pectoris, unspecified whether [place] or transplanted heart Right leg weakness Other musculoskeletal symptoms referable to limbs HLD (hyperlipidemia) Other and unspecified hyperlipidemia Foot drop, right foot Atrial fibrillation (HCC) Atrial fibrillation Benign essential HTN Essential hypertension, benign DM type 2 (diabetes mellitus, type 2) ([facility]) Type II or unspecified type diabetes mellitus without mention of complication, not stated as uncontrolled Constipation Unspecified constipation Confusion- Primary Unspecified psychosis Abdominal pain, unspecified abdominal location documented in this encounter [facility]* Diagnosis Atrial fibrillation, unspecified type (HCC) Diastolic heart failure, unspecified HF chronicity (HCC) Atherosclerosis of [place] coronary artery without angina pectoris, unspecified whether [place] or transplanted heart Right leg weakness Other [...] of genitourinary organs documented in this encounter [facility] note* Diagnosis Atrial fibrillation, unspecified type (HCC) Diastolic heart failure, unspecified HF chronicity (HCC) Atherosclerosis of [place] coronary artery without angina pectoris, unspecified whether [place] or transplanted heart Right leg weakness Other [...] Other B-complex deficiencies documented in this encounter [facility] note* Diagnosis Atrial fibrillation, unspecified type (HCC) Diastolic heart failure, unspecified HF chronicity (HCC) Atherosclerosis of [place] coronary artery without angina pectoris, unspecified whether [place] or transplanted heart Right leg weakness Other [...] of genitourinary organs [facility] Diagnosis Encounter for subsequent annual [...] heart failure (CMS/HCC) Chronic atrial fibrillation (HCC) ([facility]/HCC) Atrial fibrillation Benign essential HTN (CMS/HCC) Coronary arteriosclerosis (CMS/HCC) Coronary atherosclerosis of unspecified type of vessel, [place] or graft Type 2 diabetes mellitus without complications (CMS/HCC) Type 2 diabetes mellitus without complication, without long-term current use of insulin (/HCC)- Primary Acute metabolic encephalopathy Type 2 diabetes mellitus with diabetic neuropathy, without long-term current use of insulin (CMS/HCC) Chronic atrial fibrillation (HCC) ([facility]/HCC) Atrial fibrillation Benign essential HTN (CMS/HCC) [...] B12 deficiency Other B-complex deficiencies Other thrombophilia ([facility]) documented in this encounter [facility]* Diagnosis Atrial fibrillation, unspecified type (HCC) Diastolic heart failure, unspecified HF chronicity (HCC) Atherosclerosis of [place] coronary artery without angina pectoris, unspecified whether [place] or transplanted heart Right leg weakness Other [...] well as surgical risks of DVT, PE, [place], . All questions and concerns were addressed. Pt is willing to accept a blood transfusion in the case of excessive blood loss. She is agreeable to Exam under anesthesia, operative hysteroscopy, dilation and curettage, polypectomy, possible blood transfusion and informed consent was obtained. - Will need cardiology clearance, tony foss. Will attempted to reach out to Dr. Roberson to make him aware. Pt has an appointment with him in the coming weeks. Orders: SURGICAL REQUEST - ELECTIVE (05/2020) [facility]* Diagnosis Atrial fibrillation, unspecified type (HCC) Diastolic heart failure, unspecified HF chronicity (HCC) Atherosclerosis of [place] coronary artery without angina pectoris, unspecified whether [place] or transplanted heart Right leg weakness Other [...] (HCC) Atrial fibrillation Coronary artery disease involving [place] coronary artery of [place] heart without angina pectoris Other hyperlipidemia Endometrial polyp Polyp of corpus uteri * Assessment & Plan Note - Maxine Singh APRN.CNS - 11/15/2024 3:46 PM EST Associated Problem(s): HLD (hyperlipidemia) Assessment: takes CrestorVic, gaston * Assessment & Plan Note - Maxine Singh APRN.CNS - 11/15/2024 3:46 PM EST Associated Problem(s): DM type 2 (diabetes mellitus, type 2) (HCC) Assessment: takes Metformin,Glipizide currently stable Glucose Date Value Ref Range Status 10/20/2024 135 (H) 74 - 99 mg/dL Final Comment: The [place] [employer] Association (ADA) provides guidance for cutoff [...] Standards of Medical Care in Diabetes 2016, [place] [employer]. Diabetes Care. 2016.39(Suppl 1). * Assessment & Plan Note - Maxine Singh APRN.CNS - 11/15/2024 3:45 PM EST Associated Problem(s): CAD (coronary artery disease) Assessment: had LAD stent placed 2006 followed per Improvement Lead Dr. Roberson * Assessment & Plan Note [...] pre op,currently stable [facility]* Diagnosis Atrial fibrillation, unspecified type (HCC) Diastolic heart failure, unspecified HF chronicity (HCC) Atherosclerosis of [place] coronary artery without angina pectoris, unspecified whether [place] or transplanted heart Right leg weakness Other [...] (HCC) Atrial fibrillation Coronary artery disease involving [place] coronary artery of [place] heart without angina pectoris Other hyperlipidemia Pre-op evaluation Preoperative examination, unspecified Benign essential HTN Essential hypertension, benign Type 2 diabetes mellitus with other specified complication, without long-term current use of insulin (HCC) Paroxysmal atrial fibrillation (HCC) Atrial fibrillation Coronary artery disease involving [place] coronary artery of [place] heart without angina pectoris Other hyperlipidemia Endometrial polyp Polyp of corpus uteri [facility] Diagnosis Encounter for subsequent annual wellness [...] Coronary atherosclerosis of unspecified type of vessel, [place] or graft Type 2 diabetes mellitus without [...] or obstruction [facility] [...] use of insulin (CMS/HCC)- Primary Other thrombophilia (/HCC) Type 2 diabetes mellitus with diabetic neuropathy, unspecified (/HCC) Peripheral vascular disease, unspecified ([facility]/HCC) Peripheral vascular disease, unspecified Unspecified diastolic (congestive) heart failure (CMS/HCC) Chronic atrial fibrillation (HCC) ([facility]/) Atrial fibrillation Benign essential HTN (/) Coronary arteriosclerosis (/) Coronary atherosclerosis of unspecified type of vessel, [place] or graft Type 2 diabetes mellitus without complications ([facility]/) Type 2 diabetes mellitus without complication, without long-term current use of insulin (/)- Primary Acute metabolic encephalopathy Type 2 diabetes mellitus with diabetic neuropathy, without long-term current use of insulin (/) Chronic atrial fibrillation (HCC) ([facility]) Atrial fibrillation Benign essential HTN (/) Chronic diastolic congestive heart failure (/) Acute cholecystitis Thickened endometrium Nonspecific (abnormal) findings [...] examination of genitourinary organs Benign essential HTN ([facility]/HCC)- Primary Type 2 diabetes mellitus with diabetic neuropathy, unspecified (/) Type 2 diabetes mellitus with diabetic peripheral angiopathy without gangrene (/) Chronic diastolic (congestive) heart failure (/) Chronic atrial fibrillation, unspecified (/) Delirium due to another medical condition Endocervical polyp Mucous polyp of cervix Abnormal ultrasound of endometrium Endometrial polyp Polyp of corpus uteri Thickened endometrium Nonspecific (abnormal) findings on radiological and other examination of genitourinary organs Type 2 diabetes mellitus without complication, without long-term current use of insulin (/) Vitamin B12 deficiency Other B-complex deficiencies Other thrombophilia (/) Type 2 diabetes mellitus without complication, without long-term current use of insulin (/)- Primary Type 2 diabetes mellitus with diabetic neuropathy, without long-term current use of insulin (/) Acute gastric ulcer without hemorrhage or perforation Acute gastric ulcer without mention of hemorrhage, perforation, or obstruction Benign essential HTN (CMS/HCC) Chronic atrial fibrillation, unspecified (CMS/HCC) Type 2 diabetes mellitus with diabetic peripheral angiopathy without gangrene, without long-term current use of insulin (CMS/HCC) Other thrombophilia (CMS/HCC) Mixed hyperlipidemia (CMS/HCC) Mixed hyperlipidemia Lower abdominal pain Abdominal pain, other specified site Thickened endometrium Nonspecific (abnormal) findings on radiological and other examination of genitourinary organs [facility] Diagnosis Atrial fibrillation, unspecified type (HCC) Diastolic heart failure, unspecified HF chronicity (HCC) Atherosclerosis of [place] coronary artery without angina pectoris, unspecified whether [place] or transplanted heart Right leg weakness Other [...] (HCC) Atrial fibrillation Coronary artery disease involving [place] coronary artery of [place] heart without angina pectoris Other hyperlipidemia Postop check- Primary Follow-up examination, following unspecified surgery [facility]* Diagnosis Atrial fibrillation, unspecified type (HCC) Diastolic heart failure, unspecified HF chronicity (HCC) Atherosclerosis of [place] coronary artery without angina pectoris, unspecified whether [place] or transplanted heart Right leg weakness Other [...] (HCC) Atrial fibrillation Coronary artery disease involving [place] coronary artery of [place] heart without angina pectoris Other hyperlipidemia Calculus of gallbladder without cholecystitis without obstruction- Primary Calculus of gallbladder without mention of cholecystitis or obstruction Unintentional weight loss Loss of weight [facility] Diagnosis Encounter for subsequent annual wellness [...] Coronary atherosclerosis of unspecified type of vessel, [place] or graft Type 2 diabetes mellitus without [...] Other B-complex deficiencies documented in this encounter [facility]* Diagnosis Encounter for subsequent annual [...] Coronary atherosclerosis of unspecified type of vessel, [place] or graft Type 2 diabetes mellitus without complications Type 2 diabetes mellitus without complication, without long-term current use of insulin- Primary Acute metabolic encephalopathy Type 2 diabetes mellitus with diabetic neuropathy, without long-term current use of insulin (CMS/HCC) Chronic atrial fibrillation (HCC) ([facility]/HCC) Atrial fibrillation Benign essential HTN (CMS/HCC) [...] (congestive) heart failure Chronic atrial fibrillation, unspecified ([facility]/HCC) Delirium due to another medical condition Endocervical [...] neuropathy, without long-term current use of insulin ([facility]/HCC) Benign essential HTN (CMS/HCC) Chronic atrial fibrillation, unspecified (CMS/HCC) Chronic diastolic (congestive) heart failure Type 2 diabetes mellitus with diabetic peripheral angiopathy without gangrene, without long-term current use of insulin (CMS/HCC) Foot drop, right foot Type 2 diabetes mellitus without complication, without long-term current use of insulin Mixed hyperlipidemia ([facility]/HCC) Mixed hyperlipidemia Type 2 diabetes mellitus without complications Acute gastric ulcer without hemorrhage or perforation Acute gastric ulcer without mention of hemorrhage, perforation, or obstruction documented in this encounter [facility] HealthcareEvaluation note* Diagnosis Encounter for subsequent annual wellness visit (AWV) in Medicare patient- Primary Benign essential HTN Chronic atrial fibrillation (HCC) Atrial fibrillation Type 2 diabetes mellitus without complication, without long-term current use of insulin (HCC) Mixed hyperlipidemia Mixed hyperlipidemia Abnormal thyroid blood test Type 2 diabetes mellitus without complication, without long-term current use of insulin (HCC)- Primary Other thrombophilia ([facility]-HCC) Type 2 diabetes mellitus with diabetic neuropathy, unspecified (HCC) Peripheral vascular disease, unspecified Unspecified diastolic (congestive) heart failure (HCC) Chronic atrial fibrillation (HCC) Atrial fibrillation Benign essential HTN Coronary arteriosclerosis Coronary atherosclerosis of unspecified type of vessel, [place] or graft Type 2 diabetes mellitus without complications (HCC) Type 2 diabetes mellitus without complication, without long-term current use of insulin (HCC)- Primary Acute metabolic encephalopathy Type 2 diabetes mellitus with diabetic neuropathy, without long-term current use of insulin (HCC) Chronic atrial fibrillation (HCC) Atrial fibrillation Benign essential HTN Chronic diastolic congestive heart failure (HCC) Acute cholecystitis Thickened endometrium Nonspecific (abnormal) findings [...] other examination of genitourinary organs Benign essential HTN- Primary Type 2 diabetes mellitus with diabetic neuropathy, unspecified (HCC) Type 2 diabetes mellitus with diabetic peripheral angiopathy without gangrene (HCC) Chronic diastolic (congestive) heart failure (HCC) Chronic atrial fibrillation, unspecified (HCC) Delirium due to another medical condition Endocervical polyp Mucous polyp of cervix Abnormal ultrasound of endometrium Endometrial polyp Polyp of corpus uteri Thickened endometrium Nonspecific (abnormal) findings on radiological and other examination of genitourinary organs Type 2 diabetes mellitus without complication, without long-term current use of insulin (HCC) Vitamin B12 deficiency Other B-complex deficiencies Other thrombophilia ([facility]-HCC) Type 2 diabetes mellitus without complication, without long-term current use of insulin (HCC)- Primary Type 2 diabetes mellitus with diabetic neuropathy, without long-term current use of insulin (HCC) Acute gastric ulcer without hemorrhage or perforation Acute gastric ulcer without mention of hemorrhage, perforation, or obstruction Benign essential HTN Chronic atrial fibrillation, unspecified (HCC) Type 2 diabetes mellitus with diabetic peripheral angiopathy without gangrene, without long-term current use of insulin (HCC) Other thrombophilia ([facility]-HCC) Mixed hyperlipidemia Mixed hyperlipidemia Lower abdominal pain Abdominal pain, other specified site Thickened endometrium Nonspecific (abnormal) findings on radiological and other examination of genitourinary organs Encounter for subsequent annual wellness visit (AWV) in Medicare patient- Primary Type 2 diabetes mellitus with diabetic neuropathy, without long-term current use of insulin (HCC) Benign essential HTN Chronic atrial fibrillation, unspecified (HCC) Chronic diastolic (congestive) heart failure (HCC) Type 2 diabetes mellitus with diabetic peripheral angiopathy without gangrene, without long-term current use of insulin (HCC) Foot drop, right foot Type 2 diabetes mellitus without complication, without long-term current use of insulin (HCC) Mixed hyperlipidemia Mixed hyperlipidemia Type 2 diabetes mellitus without complications (HCC) Acute gastric ulcer without hemorrhage or perforation Acute gastric ulcer without mention of hemorrhage, perforation, or obstruction Type 2 diabetes mellitus without complication, without [...] History blood clot Hospitalization History See Above aihuishou Other reason for referral (narrative)* Outpatient Procedure (Routine) - Authorized Specialty Diagnoses / Procedures Referred By Contac t Referred To Contact [facility] Diagnoses Thickened endometrium Procedures ENDOMETRIAL BIOPSY ENDOMETRIAL BX W/WO ENDOCERVIX BX W/[place] [address] [address] [facility] [employer] [place] [address] Referral ID Status Reason Start Date Expiration Date Visits Requested Visits Authorized [id number] Authorized Auto-Generat ed Referral 10/24/2024 10/24/2025 1 1 * Diagnostic Procedure Only (Routine) - Authorized Specialty Diagnoses / Procedures Referred By Contac t Referred To Contact [facility] Diagnoses Thickened endometrium Procedures SONOHYSTEROGRAPHY (SIS) US WHI SALINE INFUS SONOHYSTEROGRAPHY W/[place] [address] [address] [facility] [address] [address] Referral ID Status Reason Start Date Expiration Date Visits Requested Visits Authorized [id number] Authorized Auto-Generat ed Referral 10/24/2024 10/24/2025 1 1 [facility] Chief Complaint and Reason for Visit Chief [...] Documents on File Type Date Recorded Patient [employer] anation Advance Directive(s) 03/29/2022 8:42 PM [...] Active Member Role Status Dates Howard Stauffer , DO Emergency Provider Active Galindo J [facility] Primary Care Provider Active Perlita Braxton MD Admit Provider, Attending Kamari mooney Active Team Status: Active Member Role Status Dates Galindo J [facility] Primary Care Provider Active Team Status: Inactive Member Role Status Dates Howard Stauffer , DO Emergency Provider Active Galindo J [facility] Primary Care Provider Active Perlita Braxton MD Admit Provider Active Colby Astorga , DO Other Provider Active Rupert Anthony MD Attending Provider Active Team Status: Inactive Member Role Status Dates Galindo J [facility] Primary Care Provider Active Kingston Gao MD Admit Provider, Attending Provider A ctshaina Dowling , ELFEGO Other Provider Active Rachna Winston , ELFEGO Other Provider Active Giselle Wahl , ELFEGO Other Provider Active Gloria Moise , ELFEGO Other Provider Active Lucia Marc RN Other Provider Active Courtney Campbell , ELFEGO Other Provider Active Cindy Buck RN Other Provider Active Cyndee Aguirre MD Other Provider Active Shadi Chahal MD Other Provider Active Galindo Lorenz , PLASTICS WORKER Other Provider Active Shelby Landrum , DO [...] MD Other Provider Active Debbie Avalos , CURING PICKLING PACKER-C Other Provider Active Saulo Dukes MD Other [...] Active Galindo Miller Primary Care Provider Active Double Bottom Driver Relationship Specialty Start Date End Date Mike Steiner MD PCP - General Family Medicine 08/09/23 Galindo Miller NP [address] [place] [address] Nurse Practitioner Family Medicine 08/09/23 Double Bottom Driver Relationship Specialty Start Date End Date Mike Steiner MD PCP - General Family Medicine 08/09/23 Galindo Miller NP [address] [place] [address] Nurse Practitioner Family Medicine 08/09/23 Double Bottom Driver Relationship Specialty Start Date End Date Mike Steiner MD [address] [place] [address] PCP - General Family Medicine 08/20/24 Galindo Miller NP [address] [place] [address] Nurse Practitioner Family Medicine 08/09/23 Double Bottom Driver Relationship Specialty Start Date End Date Mike Steiner MD [address] [place] [address] PCP - General Family Medicine 08/20/24 Galindo Miller NP [address] [place] [address] Nurse Practitioner Family Medicine 08/09/23 Double Bottom Driver Relationship Specialty Start Date End Date Mike Steiner MD [address] [place] [address] PCP - General Family Medicine 08/20/24 Galindo Miller NP [address] [place] [address] Nurse Practitioner Family Medicine 08/09/23 Double Bottom Driver Relationship Specialty Start Date End Date Mike Steiner MD [address] [place] [address] PCP - General Family Medicine 08/20/24 Galindo Miller NP [address] [place] [address] Nurse Practitioner Family Medicine 08/09/23 Double Bottom Driver Relationship Specialty Start Date End Date Mike Steiner MD [address] [place] [address] PCP - General Family Medicine 08/20/24 Galindo Miller NP [address] [place] [address] Nurse Practitioner Family Medicine 08/09/23 Double Bottom Driver Relationship Specialty Start Date End Date Mike Steiner MD [address] [place] [address] PCP - General Family Medicine 08/20/24 Galindo Miller NP [address] [place] [address] Nurse Practitioner Family Medicine 08/09/23 Double Bottom Driver Relationship Specialty Start Date End Date Mike Steiner MD [address] [place] [address] PCP - General Family Medicine 08/20/24 Galindo Miller NP [address] [place] [address] Nurse Practitioner Family Medicine 08/09/23 Double Bottom Driver Relationship Specialty Start Date End Date Mike Steiner MD [address] [place] [address] PCP - General Family Medicine 08/20/24 Galindo Miller NP [address] [place] [address] Nurse Practitioner Family Medicine 08/09/23 Double Bottom Driver Relationship Specialty Start Date End Date Mike Steiner MD [address] [place] [address] PCP - General Family Medicine 08/20/24 Galindo Miller NP [address] [place] [address] Nurse Practitioner Family Medicine 08/09/23 Double Bottom Driver Relationship Specialty Start Date End Date Galindo Miller CNP [address] [place] [address] PCP - General Family Medicine 10/16/24 Double Bottom Driver Relationship Specialty Start Date End Date Mike Steiner MD [address] [place] [address] PCP - General Family Medicine 08/20/24 Galindo Miller NP [address] [place] [address] Nurse Practitioner Family Medicine 08/09/23 Double Bottom Driver Relationship Specialty Start Date End Date Galindo Miller CNP [address] [place] [address] PCP - General Family Medicine 10/16/24 Double Bottom Driver Relationship Specialty Start Date End Date Galindo Miller CNP [address] [place] [address] PCP - General Family Medicine 10/16/24 Double Bottom Driver Relationship Specialty Start Date End Date Galindo Miller CNP [address] [place] [address] PCP - General Family Medicine 10/16/24 Double Bottom Driver Relationship Specialty Start Date End Date Mike Steiner MD [address] [place] [address] PCP - General Family Medicine 08/20/24 Galindo Miller NP [address] [place] [address] Nurse Practitioner Family Medicine 08/09/23 Double Bottom Driver Relationship Specialty Start Date End Date Mike Steiner MD [address] [place] [address] PCP - General Family Medicine 08/20/24 Galindo Miller NP [address] [place] [address] Nurse Practitioner Family Medicine 08/09/23 Double Bottom Driver Relationship Specialty Start Date End Date Mike Steiner MD [address] [place] [address] PCP - General Family Medicine 08/20/24 Galindo Miller NP [address] [place] [address] Nurse Practitioner Family Medicine 08/09/23 Double Bottom Driver Relationship Specialty Start Date End Date Galindo Miller, TRIALS MANAGER [address] [place] [address] PCP - General Family Medicine 10/16/24 Double Bottom Driver Relationship Specialty Start Date End Date Galindo Miller TRIALS MANAGER [address] [place] [address] PCP - General Family Medicine 10/16/24 Double Bottom Driver Relationship Specialty Start Date End Date Galindo Miller CNP [address] [place] [address] PCP - General Family Medicine 10/16/24 Double Bottom Driver Relationship Specialty Start Date End Date Galindo Miller CNP [address] [place] [address] PCP - General Family Medicine 10/16/24 Double Bottom Driver Relationship Specialty Start Date End Date Galindo Miller CNP [address] [place] [address] PCP - General Family Medicine 10/16/24 Double Bottom Driver Relationship Specialty Start Date End Date Galindo Miller CNP [address] [place] [address] PCP - General Family Medicine 10/16/24 Double Bottom Driver Relationship Specialty Start Date End Date Galindo Miller CNP [address] [place] [address] PCP - General Family Medicine 10/16/24 Double Bottom Driver Relationship Specialty Start Date End Date Mike Steiner MD [address] [place] [address] PCP - General Family Medicine 08/20/24 Galindo Miller NP [address] [place] [address] Nurse Practitioner Family Medicine 08/09/23 Double Bottom Driver Relationship Specialty Start Date End Date Mike Steiner MD [address] [place] [address] PCP - General Family Medicine 08/20/24 Galindo Miller NP [address] [place] [address] Nurse Practitioner Family Medicine 08/09/23 Double Bottom Driver Relationship Specialty Start Date End Date Galindo Miller TRIALS MANAGER [address] [place] [address] PCP - General Family Medicine 10/16/24 Double Bottom Driver Relationship Specialty Start Date End Date Galindo Miller TRIALS MANAGER [address] [place] [address] PCP - General Family Medicine 10/16/24 Double Bottom Driver Relationship Specialty Start Date End Date Mike Steiner MD [address] [place] [address] PCP - General Family Medicine 08/20/24 Galindo Miller NP [address] [place] [address] Nurse Practitioner Family Medicine 08/09/23 Double Bottom Driver Relationship Specialty Start Date End Date Galindo Miller, TRIALS MANAGER [address] [place] [address] PCP - General Family Medicine 10/16/24 Double Bottom Driver Relationship Specialty Start Date End Date Mike Steiner MD [address] [place] [address] PCP - General Family Medicine 08/20/24 Galindo Miller NP [address] [place] [address] Nurse Practitioner Family Medicine 08/09/23 Double Bottom Driver Relationship Specialty Start Date End Date Mike Steiner MD [address] [place] [address] PCP - General Family Medicine 08/20/24 Galindo Miller NP [address] [place] [address] Nurse Practitioner Family Medicine 08/09/23 Double Bottom Driver Relationship Specialty Start Date End Date Mike Steiner MD [address] [place] [address] PCP - General Family Medicine 08/20/24 Galindo Miller NP [address] [place] [address] Nurse Practitioner Family Medicine 08/09/23 Double Bottom Driver Relationship Specialty Start Date End Date Mike Steiner MD [address] [place] [address] PCP - General Family Medicine 08/20/24 Galindo Miller NP [address] [place] [address] Nurse Practitioner Family Medicine 08/09/23 Goals (unrecognized section and content) Goals may be documented in a n alternate sectionGoals may be documented in an alternate sectionGoals may be documented in an alternate sectionNo Information REASON FOR VISIT (unrecogniz ed section and content) Reason Comments Other home health orders r equested Reason Comments Forms [facility] ter Reason Comments Forms Reason Comments Other [facility] Plan of Ca re 04/17/22 - 06/15/22 Reason Comments General FR Reason Comments Post-Op Visit Reason Comments Forms Physician Orders ([place]) - [facility] Reason Comments Forms Other Discharge Physician Orders Reason Comments Other Physical Therapy Rec ertification Note Reason Comments Received Outside Medical Records [facility] Reason Comments Med Refill Reason Comments Diabetes Abdominal Pain Reason Onset Date Comments Med Refill 10/07/2024 Reason Comments Cough Reason Comments Abdominal Pain X6 wks on and off, c hange in mental status x3 days Reason Comments ED Follow-up Endometrial thickeni ng Was in for stomach pain and confusion Reason Comments SIS/EMB Specialty Diagnoses / Procedures Referred By Oscar t Referred To Contact [facility] Diagnoses Thickened endometrium Procedures SONOHYSTEROGRAPHY (SIS) US WHI SALINE INFUS SONOHYSTEROGRAPHY W/[place] [address] [id number] [place] [address] Referral ID Status Reason Start Date Expiration Date V isits Requested Visits Authorized [id number] Closed Auto-Generate d Referral 10/24/2024 10/24/2025 1 [...] section and content) DATE CREATED AUTHOR [facility]20[facility] DATE CREATED AUTHOR AUTHOR'S ORGANIZ ATION 09/15/2022 [facility] DATE CREATED AUTHOR AUTHOR'S ORGANIZ ATION 11/12/2022 [facility] DATE CREATED AUTHOR AUTHOR'S ORGANIZ ATION 11/19/2024 [facility] DATE CREATED AUTHOR AUTHOR'S ORGANIZ ATION 12/10/2024 [facility] DATE CREATED AUTHOR AUTHOR'S ORGANIZ ATION 01/19/2025 [facility] DATE CREATED AUTHOR AUTHOR'S ORGANIZ ATION 05/24/2025 [facility] EPIC Source Comments (unrecognize d section and content) In the event this informatio n is protected by the Federal Confidentiality of Alcohol and Drug Abuse Patient Records regulations: The Federal rules restrict any use of the information to criminally investigate or prosecute any alcohol or drug abuse patient.[facility] the event this information is protected by the Federal Confidentiality of Alcohol and Drug Abuse Patient Records regulations: The Federal rules restrict any use of the information to criminally investigate or prosecute any alcohol or drug abuse patient.[facility]In the event this information is protected by the Federal Confidentiality of Alcohol and Drug Abuse Patient Records regulations: The Federal rules restrict any use of the information to criminally investigate or prosecute any alcohol or drug abuse patient.[facility]In the event this information is protected by the Federal Confidentiality of Alcohol and Drug Abuse Patient Records regulations: The Federal rules restrict any use of the information to criminally investigate or prosecute any alcohol or drug abuse patient.[facility] the event this information is protected by the Federal Confidentiality of Alcohol and Drug Abuse Patient Records regulations: The Federal rules restrict any use of the information to criminally investigate or prosecute any alcohol or drug abuse patient.[facility] the event this information is protected by the Federal Confidentiality of Alcohol and Drug Abuse Patient Records regulations: The Federal rules restrict any use of the information to criminally investigate or prosecute any alcohol or drug abuse patient.[facility] NorthIn the event this information is protected by the Federal Confidentiality of Alcohol and Drug Abuse Patient Records regulations: The Federal rules restrict any use of the information to criminally investigate or prosecute any alcohol or drug abuse patient.[facility] the event this information is protected by the Federal Confidentiality of Alcohol and Drug Abuse Patient Records regulations: The Federal rules restrict any use of the information to criminally investigate or prosecute any alcohol or drug abuse patient.[facility] North[facility] the event this information is protected by the Federal Confidentiality of Alcohol and Drug Abuse Patient Records regulations: The Federal rules restrict any use of the information to criminally investigate or prosecute any alcohol or drug abuse patient.[facility] the event this information is protected by the Federal Confidentiality of Alcohol and Drug Abuse Patient Records regulations: The Federal rules restrict any use of the information to criminally investigate or prosecute any alcohol or drug abuse patient.[facility] the event this information is protected by the Federal Confidentiality of Alcohol and Drug Abuse Patient Records regulations: The Federal rules restrict any use of the information to criminally investigate or prosecute any alcohol or drug abuse patient.[facility] the event this information is protected by the Federal Confidentiality of Alcohol and Drug Abuse Patient Records regulations: The Federal rules restrict any use of the information to criminally investigate or prosecute any alcohol or drug abuse patient.[facility] NorthIn the event this information is protected by the Federal Confidentiality of Alcohol and Drug Abuse Patient Records regulations: The Federal rules restrict any use of the information to criminally investigate or prosecute any alcohol or drug abuse patient.[facility] NorthIn the event this information is protected by the Federal Confidentiality of Alcohol and Drug Abuse Patient Records regulations: The Federal rules restrict any use of the information to criminally investigate or prosecute any alcohol or drug abuse patient.[facility] NorthIn the event this information is protected by the Federal Confidentiality of Alcohol and Drug Abuse Patient Records regulations: The Federal rules restrict any use of the information to criminally investigate or prosecute any alcohol or drug abuse patient.[facility] NorthIn the event this information is protected by the Federal Confidentiality of Alcohol and Drug Abuse Patient Records regulations: The Federal rules restrict any use of the information to criminally investigate or prosecute any alcohol or drug abuse patient.[facility] NorthIn the event this information is protected by the Federal Confidentiality of Alcohol and Drug Abuse Patient Records regulations: The Federal rules restrict any use of the information to criminally investigate or prosecute any alcohol or drug abuse patient.[facility] NorthIn the event this information is protected by the Federal Confidentiality of Alcohol and Drug Abuse Patient Records regulations: The Federal rules restrict any use of the information to criminally investigate or prosecute any alcohol or drug abuse patient.[facility] NorthIn the event this information is protected by the Federal Confidentiality of Alcohol and Drug Abuse Patient Records regulations: The Federal rules restrict any use of the information to criminally investigate or prosecute any alcohol or drug abuse patient.[facility] NorthIn the event this information is protected by the Federal Confidentiality of Alcohol and Drug Abuse Patient Records regulations: The Federal rules restrict any use of the information to criminally investigate or prosecute any alcohol or drug abuse patient.[facility] NorthIn the event this information is protected by the Federal Confidentiality of Alcohol and Drug Abuse Patient Records regulations: The Federal rules restrict any use of the information to criminally investigate or prosecute any alcohol or drug abuse patient.[facility] NorthIn the event this information is protected by the Federal Confidentiality of Alcohol and Drug Abuse Patient Records regulations: The Federal rules restrict any use of the information to criminally investigate or prosecute any alcohol or drug abuse patient.[facility] NorthIn the event this information is protected by the Federal Confidentiality of Alcohol and Drug Abuse Patient Records regulations: The Federal rules restrict any use of the information to criminally investigate or prosecute any alcohol or drug abuse patient.[facility] NorthIn the event this information is protected by the Federal Confidentiality of Alcohol and Drug Abuse Patient Records regulations: The Federal rules restrict any use of the information to criminally investigate or prosecute any alcohol or drug abuse patient.[facility]In the event this information is protected by the Federal Confidentiality of Alcohol and Drug Abuse Patient Records regulations: The Federal rules restrict any use of the information to criminally investigate or prosecute any alcohol or drug abuse patient.[facility]In the event this information is protected by the Federal Confidentiality of Alcohol and Drug Abuse Patient Records regulations: The Federal rules restrict any use of the information to criminally investigate or prosecute any alcohol or drug abuse patient.[facility] NorthIn the event this information is protected by the Federal Confidentiality of Alcohol and Drug Abuse Patient Records regulations: The Federal rules restrict any use of the information to criminally investigate or prosecute any alcohol or drug abuse patient.[facility] FOR RECORDS PERTAINING TO PATIENTS WHO ARE [...] BE BASED ON THE PRIMARY CLINICAL RECORDS. [facility]. provides no warranty or guarantee of the accuracy or completeness of information in this document.
== END 2025-05-28 12:38 | disposition home or self-care (01) ==
LOC: MAMMO 12:37
PROVIDERS: PCP Nurse Practitioner; Visit Provider Nurse Practitioner
DX: Z12.31 Encounter for screening mammogram for malignant neoplasm of breast (principal); Z80.3 Family history of malignant neoplasm of breast
CPT/HCPCS: 77067

== ENCOUNTER 2025-06-29 17:50 | Emergency (ER) | payer MEDICARE, SELFPAY ==
[2025-06-29 17:58] VITALS: PULSE 62; TEMP 36.6; O2SAT 97; O2SAT 99; BMI 27.5
[2025-06-29 18:00] VITALS: O2SAT 99
[2025-06-29 18:01] VITALS: BP 160/65
--- OUTSIDE RECORDS SUMMARY | 2025-06-29 18:05 | XMS_ITS | CCD ---
Author Organization [facility] Informat ion Partnership [facility] Care Team Providers Care Car Cleaner Name Role Phone MD Atul Vera Attending Provider [phone] NON STAFF Primary Care Provider UnavailDO Howard Lennon Emergency Provider [phone] Galindo Miller Primary Care Provider [phone] MD Perlita Davis Admit Provider Al MD Perlita Pennington Attending Provider [phone] DO Colby Astorga Other Provider MD Rupert Anthony Attending Provider Atul Vera Unavailable MARGARETTE LINCOLN Attending Unavailable MARGARETTE LINCOLN Admitting Unavailable MD Kingston Gao Admit Provider MD Kingston Gao Attending Provider ELFEGO Dowling Other Provider Unavailable ELFEGO Winston Other Provider Unavailable ELFEGO Wahl Other Provider Unavailable ELFEGO Moise Other Provider Unavailable ELFEGO Marc Other Provider Unavailable ELFEGO Campbell Other Provider Unavailable ELFEGO Buck Other Provider Unavailable MD Cyndee Aguirre Other Provider MD Shadi Chahal Other Provider OMID Lorenz Other Provider DO Shelby Landrum Other Provider MD Kieran Scott Other Provider [phone] DO Jayesh Clark Other Provider MD Justyn [...] Provider MD Dwight Kelley Other Provider Bailey TRAFFIC OR SYSTEM DISPATCHER-Carlos Pleitez Other Provider MD Saulo Dukes Other Provider MD Abel Oglesby Other Provider MD Jesu Mcmanus Other Provider Unavailable MD Ann-Marie Mustafa Other Provider MD Rupert Anthony Other Provider MD Sadneep Morel Other Provider DO Letty Ramsey Other Provider MD Perlita Davis Other Provider DO Jr Zayas Other Provider DO Adis Rouse Other Provider OMID Singletary Other Provider DO Cm Zarco Other Provider MD Rik Davis Other Provider ELFEGO Hudson Other Provider Unavailable Unavailable Primary Care Provider UnavailMD Atul Thompson Attending Provider [phone] Galindo Miller Primary Care Provider Unavailable Primary Care Provider Unavailabl e Unavailable Primary Care Provider Unavailabl e AICHHOLZ, NURSING HOME AIDE GALINDO Primary Care Unavailable DR SHEILA INIGUEZ V Consulting Unavailable AICHHOLZ, NURSING HOME AIDE GALINDO Admitting Unavailable AICHHOLZ, NURSING HOME AIDE GALINDO Attending Unavailable AICHHOLZ, NURSING HOME AIDE GALINDO Consulting Unavailable AICHHOLZ, NURSING HOME AIDE GALINDO Primary Care Unavailable AICHHOLZ, NURSING HOME AIDE GALINDO Admitting Unavailable AICHHOLZ, NURSING HOME AIDE GALINDO Attending Unavailable AICHHOLZ, NURSING HOME AIDE GALINDO Consulting Unavailable AICHHOLZ, NURSING HOME AIDE GALINDO Primary Care Unavailable AICHHOLZ, NURSING HOME AIDE GALINDO Admitting Unavailable AICHHOLZ, NURSING HOME AIDE GALINDO Attending Unavailable AICHHOLZ, NURSING HOME AIDE GALINDO Primary Care Unavailable MISC, DOCTOR Attending Unavailable MISC, DOCTOR Admitting Unavailable AICHHOLZ, NURSING HOME AIDE GALINDO Primary Care Unavailable AICHHOLZ, NURSING HOME AIDE GALINDO Admitting Unavailable AICHHOLZ, NURSING HOME AIDE GALINDO Attending Unavailable AICHHOLZ, NURSING HOME AIDE GALINDO Consulting Unavailable AICHHOLZ, NURSING HOME AIDE GALINDO Primary Care Unavailable DR SHEILA INIGUEZ V Consulting Unavailable AICHHOLZ, NURSING HOME AIDE GALINDO Admitting Unavailable AICHHOLZ, NURSING HOME AIDE GALINDO Attending Unavailable AICHHOLZ, NURSING HOME AIDE GALINDO Consulting Unavailable Atul Vera P [...] Abel Consulting Unavailable Jesu Mcmanus Consulting Unavailable MonoAnn-Marie tobar Consulting Unavailable Raj, Rupert Consulting Unavailable Ghadiran Hillman, Sandeep Consulting Jacquelin Letty Gómez Consulting Unavailable Perlita Davis Consulting Unavailab Jr Almeida Consulting Unavailable MiniAdis schroeder Consulting Unavailable Obika, Sarai Consulting Unavailable Cm Zarco Consulting Unavailable Daromar, Obaydah M Consulting Unavailable Lexie Hudson Consulting Unavailable Paul Galindo Pricilla Primary Care Unavailable Atul Vera Attending Unavailable Atul Vera Admitting Unavailable Mike Steiner MD Primary Care Provider [phone] Brimegan TRAFFIC OR SYSTEM DISPATCHER, Galindo Unavailable Mike Steiner MD Primary Care Provider Paul NURSING HOME AIDE, Galindo Vitale Primary Care Provider JOSE ROBERSON Attending Unavailable ANNELISE PIERCE Referring [...] Unavailable ATUL MARTIN Admitting Unavailable AICHHOLZ, GALINDO WINIFRED Primary Care Unavailable ROSIE IZAGUIRRE Consulting Unavailable AICHHOLZ, GALINDO WINIFRED Primary Care Unavailable HIRZEL, LUCIANA M Attending Unavailable HIRZEL, LUCIANA M Admitting Unavailable BRENDON DORSEY Attending Unavailable AICHHOLZ, GALINDO WINIFRED Primary Care Unavailable HIRZEL, LUCIANA M Referring Unavailable AICHHOLZ, GALINDO WINIFRED Primary Care Unavailable HIRZEL, LUCIANA M Attending Unavailable AICHHOLZ, GALINDO WINIFRED Primary Care Unavailable SELF Referring Unavailable ROLANDA CHAPARRO Referring Unavailable AICHHOLZ, GALINDO WINIFRED Primary Care Unavailable DINORA CARROLL Attending Unavailable HIRZEL, LUCIANA M Attending Unavailable AICHHOLZ, GALINDO WINIFRED Primary Care Unavailable MAXINE SINGH Referring Unavailable AICHHOLZ, GALINDO WINIFRED Primary Care Unavailable HIRZEL, LUCIANA M Referring Unavailable AICHHOLZ, GALINDO WINIFRED Primary Care Unavailable HIRZEL, LUCIANA M Attending Unavailable AICHHOLZ, GALINDO WINIFRED Primary Care Unavailable AICHHOLZ, GALINDO Attending Unavailable AICHHOLZ, GALINDO Attending Unavailable AICHHOLZ, GALINDO Attending Unavailable AICHHOLZ, GALINDO Attending Unavailable AICHHOLZ, GALINDO Attending Unavailable AICHHOLZ, GALINDO Attending Unavailable AICHHOLZ, GALINDO Attending Unavailable Allergies Allergy Classification Reported Allergen(s) Allergy Type Date of Onset Reaction(s) Facility (20 sources) Morphine; Translations: [MORPHINE] Drug Allergy 4 GI intolerance, Nausea Only, GI Upset [facility] Work Phone: Medications Current Medications [...] Monitoring Suppl (True Metrix Meter) w/Device kit (7 sources) Start: 12-05-19 Blood Glucose Monitoring Suppl [...] on above: Take 1 capsule by mo [facility] twice daily. fluconazole 150 mg oral tablet [...] 2022 12:00am take 1 capsule by mo [facility] every twenty-four hours Gabapentin 100 MG 1 [...] mouth once daily. Multiple Vitamins-Minerals (Oncovite) tablet (18 sources) Start: 10-21-19 take 1 tablet by mouth in the morning Multiple Vitamins-Minerals (Oncovite) tablet Take 1 tablet by mouth in the morning. 10/21/2024 Active nitroglycerin 0.4 mg sublingual tablet (17 sources) Nitrate Vasodilator Start: 11-07-19 nitroglycerin (Nitrostat) [...] Coronary arteriosclerosis; Translations: [Atherosclerotic heart disease of [place] coronary artery without angina pectoris] Onset: 11-17-2021 [...] Onset: 02-01-2012 03-28-2022 Chronic Heart valve disorders (20 sources) Mitral valve [...] [Hyperosmolality and hypernatremia] Onset: 08-23-2024 08-23-2024 Episodic Gastroduodenal ulcer (except hemorrhage) (20 sources) Acute gastric ulcer without hemorrhage AND without perforation; Translations: [Acute gastric ulcer without hemorrhage or perforation] Onset: 09-17-2024 09-30-2024 Episodic Genitourinary symptoms and ill-defined conditions (20 [...] Episodic Other nutritional; endocrine; and metabolic disorders (11 sources) Weight decreased; Translations: [Abnormal weight loss] [...] Test Name Value Interpretation Reference Range Facility MG Breast - bilateral Screen ingon 05-28-2025 [place] [address] Mammography Report Signed Patient: SAEED SARABIA MR#: [id number] : 1940 Acct:[id number] Age/Sex: 84 / F ADM Date: 05/28/25 Loc: MAMMO Attending Dr: Galindo Miller NP Ordering Physician: Galindo Miller NP Results: Date of Service: 05/28/25 Follow Up: Procedure(s): MM screening mammo BI Accession Number(s): [id number] cc: Galindo Miller NP Patient Name: SAEED SARABIA MR#: [id number] : 1940 Exam Date: 05/28/2025 Ordering Doctor: LEXI MILLER CNP RADIOLOGY REPORT PROCEDURE: MM SCREENING MAMMO BI COMPARISON: None. INDICATIONS: Screening Calculator Name NCI Breast Cancer Risk Assessment Tool 5 Year Breast Cancer Risk 6.20% Lifetime Breast Cancer Risk 6.90% Personal Breast Cancer No Personal Ovarian Cancer No Treatments None Family Cancers Sister with breast cancer at age 73; Daughter with breast cancer at age 62; Daughter with breast cancer at age 59; Daughter with breast cancer at age 53; Aunt-maternal with breast cancer at age 90. LOCATION: [facility] BREAST COMPOSITION: The breasts are almost entirely fatty. FINDINGS: RIGHT BREAST: No significant suspicious finding. LEFT BREAST: No significant suspicious finding. DIAGNOSTIC CATEGORY 1--NEGATIVE. RECOMMENDATIONS: ROUTINE MAMMOGRAM AND CLINICAL EVALUATION IN 12 MONTHS. PLEASE NOTE: A NORMAL MAMMOGRAM DOES NOT EXCLUDE THE POSSIBILITY OF BREAST CANCER. A CLINICALLY SUSPICIOUS PALPABLE LUMP SHOULD BE BIOPSIED. Dictated by: Jamin Barnhart MD on 05/28/2025 at 14:27 Approved by: Jamin Barnhart MD on 05/28/2025 at 14:29 Dictated By: Jamin Barnhart M.D. Signed By: 05/28/25 1429 DD/ 1429 TD/TT: Publicity Expert: [facility] Radiology, Radiologist, MD - 05/28/2025 [place] [address] Mammography Report Signed Patient: SAEED SARABIA MR#: [id number] : 1940 Acct:[id number] Age/Sex: 84 / F ADM Date: 05/28/25 Loc: MAMMO Attending Dr: Galindo Miller NP Ordering Physician: Galindo Miller NP Results: Date of Service: 05/28/25 Follow Up: Procedure(s): MM screening mammo BI Accession Number(s): [id number] cc: Galindo Miller NP Patient Name: SAEED SARABIA MR#: [id number] : 1940 Exam Date: 05/28/2025 Ordering Doctor: LEXI MILLER CNP RADIOLOGY REPORT PROCEDURE: MM SCREENING MAMMO BI COMPARISON: None. INDICATIONS: Screening Calculator Name NCI Breast Cancer Risk Assessment Tool 5 Year Breast Cancer Risk 6.20% Lifetime Breast Cancer Risk 6.90% Personal Breast Cancer No Personal Ovarian Cancer No Treatments None Family Cancers Sister with breast cancer at age 73; Daughter with breast cancer at age 62; Daughter with breast cancer at age 59; Daughter with breast cancer at age 53; Aunt-maternal with breast cancer at age 90. LOCATION: [facility] BREAST COMPOSITION: The breasts are almost entirely fatty. FINDINGS: RIGHT BREAST: No significant suspicious finding. LEFT BREAST: No significant suspicious finding. DIAGNOSTIC CATEGORY 1--NEGATIVE. RECOMMENDATIONS: ROUTINE MAMMOGRAM AND CLINICAL EVALUATION IN 12 MONTHS. PLEASE NOTE: A NORMAL MAMMOGRAM DOES NOT EXCLUDE THE POSSIBILITY OF BREAST CANCER. A CLINICALLY SUSPICIOUS PALPABLE LUMP SHOULD BE BIOPSIED. Dictated by: Jamin Barnhart MD on 05/28/2025 at 14:27 Approved by: Jamin Barnhart MD on 05/28/2025 at 14:29 Dictated By: Jamin Barnhart M.D. Signed By: 05/28/25 142 DD/ 28 TD/TT: Publicity Expert: [facility] Radiology Study observation (narrative) [facility] MG Breast - bilateral Screen ingOrdered By: Radiologist Radiology on 05-28-2025 [facility] Work Phone: ALL CBC WITH AUTO DIFFon BASOPHILS ABSOLUTE AUTO 0 N [facility] Basophils/100 WBC (Bld) 0.4 % 0.2 - 2.0 % [facility] Eosinophils/100 WBC (Bld) 3.7 % 0.9 - 7.0 % [facility] Erythrocyte distribution width (RBC) [Ratio] 13 % 11.0 - 15.0 % [facility] Hematocrit (Bld) [Volume fraction] 41.9 % 36.0 - 48.0 % [facility] Hemoglobin (Bld) [Mass/Vol] 13 g/dL 12.0 - 16.0 g/dL [facility] IMMATURE GRANULOCYTES ABS AUTO 0.01 [facility] Immature granulocytes/100 WBC (Bld) 0.1 % 0.0 - 0.5 % [facility] Interpretation and review of laboratory results Abnormal [facility] LYMPHOCYTES ABSOLUTE AUTO 3.7 [facility] Lymphocytes/100 WBC (Bld) 47.2 % 20.5 - 60.0 % [facility] MCH (RBC) [Entitic mass] 30.4 pg 26. 7 - 34.0 pg [facility] MCHC (RBC) [Mass/Vol] 31 g/dL 29.9 - 35.2 g/dL [facility] MCV (RBC) [Entitic vol] 98.1 fL 81.0 - 99.0 fL [facility] MONOCYTES ABSOLUTE AUTO 0.6 N [facility] Monocytes/100 WBC (Bld) 8.3 % 1.7 - 12.0 % [facility] NEUTROPHILS ABSOLUTE AUTO 3.1 [facility] Neutrophils/100 WBC (Bld) 40.3 % Low 43.0 - 75.0 % [facility] Platelet mean volume (Bld) [Entitic vol] 9.4 fL Low 9.5 - 13.5 fL [facility] TBH EO # 0.3 [facility] TB PLT 283 [facility] RBC 4.27 [facility] WBC 7.7 [facility] CNOVon 01-17-2025 CNOV Office Visit (GASTCC ) SAEED SARABIA ([id number]) 1940 F Date Time Provider Department 01/17/25 10:30 AM DINORA CARROLL [facility] During your visit today, we recorded the following information about you: Pulse Blood pressure Weight 62/minute 167/74 73.1 kg Dinora Carroll APRN.NURSING HOME AIDE 01/17/2025 1:31 PM Signed Consultation requested [...] began experiencing abdominal pain. Initial evaluations at [facility] suggested the presence of multiple gallstones, with recommendations for cholecystectomy. However, subsequent evaluations by another physician at the same hospital contradicted this recommendation, stating that surgery was not necessary. After a week of hospitalization and multiple tests, no definitive cause for the abdominal pain was identified. Due to persistent severe pain, patient was taken to the [facility] Emergency Room, where further evaluations were conducted, including an endoscopy and various scans. A colonoscopy performed at [facility] revealed non-cancerous polyps, which were removed. During the evaluations at [facility], a scan indicated uterine thickening, leading to concerns about potential cancer. A can filling machine operator at [facility] subsequently removed a polyp measuring 2 cm by 9 cm from the uterus and cervix. Following this procedure, patient's abdominal pain reportedly resolved. Patient has a known history of gallstones, with conflicting medical opinions on the necessity of cholecystectomy. One physician at [facility] recommended immediate surgery, stating the gallbladder was completely full of stones, while another physician at [facility] advised against it. Patient has also [...] (TYLENOL) 3 (more content not included)... Normal [facility] HISTORY PHYSICALon HISTORY PHYSICAL HNO ID: [id number] Author: DINORA CARROLL APRN.NURSING HOME AIDE Service: ? Author Type: Nurse Practitioner [...] began experiencing abdominal pain. Initial evaluations at [facility] suggested the presence of multiple gallstones, with recommendations for cholecystectomy. However, subsequent evaluations by another physician at the same hospital contradicted this recommendation, stating that surgery was not necessary. After a week of hospitalization and multiple tests, no definitive cause for the abdominal pain was identified. Due to persistent severe pain, patient was taken to the [facility] Emergency Room, where further evaluations were conducted, including an endoscopy and various scans. A colonoscopy performed at [facility] revealed non-cancerous polyps, which were removed. During the evaluations at [facility], a scan indicated uterine thickening, leading to concerns about potential cancer. A can filling machine operator at [facility] subsequently removed a polyp measuring 2 cm by 9 cm from the uterus and cervix. Following this procedure, patient's abdominal pain reportedly resolved. Patient has a known history of gallstones, with conflicting medical opinions on the necessity of cholecystectomy. One physician at [facility] recommended immediate surgery, stating the gallbladder was completely full of stones, while another physician at [facility] advised against it. Patient has also [...] once daily (more content not included)... Normal [facility] CNOVon 12-17-2024 CNOV Office Visit (OGFVWE ) SAEED SARABIA ([id number]) 1940 F Date Time Provider Department 12/17/24 9:00 AM LUCIANA GREEN OGFVWE During your visit today, we recorded the following information about you: Pulse Blood pressure Weight Height 70/minute 120/70 72.5 kg 1.676 m Cara Young MA 12/17/2024 12:51 PM Signed Criminal Justice Professor offered: Patient declines. Luciana Green DO 12/17/2024 [...] Status:Closed by LUCIANA GREEN on 12/17/24 Normal [facility] ANES POSTPROC EVALon 025 ANES POSTPROC EVAL HNO ID: [id number] Author: BERLIN NAQVI MD Service: Anesthesiology Author [...] December 06, 2024 TIME: 11:36 AM CSN: [id number] [facility] ANES PRE-OPon 12-06-2024 ANES PRE-OP HNO ID: [id number] Author: BERLIN NAQVI MD Service: Anesthesiology Author [...] December 06, 2024 TIME: 7:27 AM CSN: [id number] [facility] BRIEF OP NOTon 12-06-2024 BRIEF OP NOT HNO ID: [id number] Author: ITZ AVALOS RN Service: ? Author Type: Registered Nurse Type: Brief Op Note Filed: 12/06/2024 09:02 Note Text: Per Surgeon, Fluid deficit is 285cc. [facility] TYPE + SCREENon 12-06-19 25 ABO O [facility] Rh Nom (Bld) Positive [facility] TYPE AND SCREEN EXPIRATION 12/09/2024 23:59 [facility] Specimen Type: BLOOD SPECIMEN Ordering Facility: [facility] Address: [address] [place] [address] BLOOD BANK CLIA [id number] [place] [address] [place] [facility] NURSING PROGon 12-06-2024 NURSING PROG HNO ID: [id number] Author: KATHY TAVERAS RN Service: Nursing Author [...] Signed By: Kathy Taveras RN In Department: [facility] OPERATING ROOM Normal [facility] OPERATIVE NOon 12-06-2024 OPERATIVE NO HNO ID: [id number] Author: LUCIANA GREEN DO Service: Obstetrics Author Type: Physician Type: Operative Report Filed: 12/06/2024 09:21 Note Text: DESK CLERK OPERATIVE/PROCEDURE REPORT LOG ID: [id number] Surgery/Procedure Date: 12/06/2024 Incision/Procedure Start Time: 8:09 AM Incision Close/Procedure End Time: 8:47 AM Surgeon(s)/Procedurali st(s) and Senior Functional Analyst(s): Surgeons and Role: * Luciana Green DO [...] 06, 2024 TIME: 9:16 AM PAGER/CONTACT #: [facility] Pathology biopsy report Carlos (Tiss)on 12-06-2024 AP DISCLAIMER [facility] Comment on above: Order Comment: Speci men Type: TISSUE SPECIMENOrdering Facility: [facility] Address: [address] [place] [address] Result Comment: Ish beltrán Developed Test (LDT) Disclaimer: Performance characteristics of immunohistochemical, immunofluorescent, and chromogenic in-situ hybridization tests have been determined by the performing laboratory within [facility]'s [facility] Pathology and Laboratory Medicine Department ([facility], [facility], [facility], [facility], [facility], or [facility]) in a manner consistent with CLIA requirements. One or more of these tests may not have been cleared or approved by the FDA. [facility] is regulated under CLIA as qualified to perform high-complexity testing. These tests are used for clinical purposes. These should not be regarded as investigational or for research. Positive and negative controls stain appropriately. Performed By: #### 6 6121-5 ####[facility] LABCLIA [id number] [place] [id number] [place] CASE REPORT Normal [facility] Comment on above: Order Comment: Speci men Type: TISSUE SPECIMENOrdering Facility: [facility] Address: [address] [place] [address] Result Comment: Surg [facility] Pathology Report Case: [id number] Authorizing Provider: Luciana Green DO Collected: 12/06/2024 08:36 AM Ordering Location: [facility] Received: 12/06/2024 09:22 AM Operating Room Pathologist: Robyn Minaya MD Specimens: A) - Endometrium, Polyp B) - Endometrium, Curettings Performed By: #### 6 6121-5 ####[facility] LABIA [id number] [address] [place] CLINICAL HISTORY Normal [facility] Comment on above: Order Comment: Speci men Type: TISSUE SPECIMENOrdering Facility: [facility] Address: [address] [place] [address] Result Comment: Pre- op diagnosis: Endometrial polyp [N84.0] Performed By: #### 6 6121-5 ####[facility] LABIA [id number] [address] OF [facility] FINAL DIAGNOSIS [facility] Comment on above: Order Comment: Speci men Type: TISSUE SPECIMENOrdering Facility: [facility] Address: [address] [place] [address] Result Comment: A. U terus, endometrium, polypectomy -Fragments of benign endometrial polyp B. Uterus, endometrium, dilation and curettage -Fragments of superficial inactive endometrium -Fragments of benign endometrial polyp at 1231 EST Performed By: #### 6 6121-5 ####[facility] LABCLIA [id number] [address] [address] [place] FINAL PERFORMING LAB [facility] Comment on above: Order Comment: Speci men Type: TISSUE SPECIMENOrdering Facility: [facility] Address: [address] [place] [address] Result Comment: Diag nostic interpretation performed at: [facility], [address] [place] [address] CLIA# [id number] Fmd Teacher: Liam Naik MD Performed By: #### 6 6121-5 ####[facility] LABCLIA [id number] [place] [address] [place] GROSS DESCRIPTION Normal [facility] Comment on above: Order Comment: Speci men Type: TISSUE SPECIMENOrdering Facility: [facility] Address: [address] [place] [address] Result Comment: A. E ndometrium, Polyp Received [...] 2024 1:33 PM Gross examination performed at [facility], [address] [place] [address] Performed By: #### 6 6121-5 ####[facility] LABCLIA [id number] [place] [id number] [place] TYPE + SCREENon 12-06-2024 ABO O [facility] Comment on above: Order Comment: Speci men Type: BLOOD SPECIMENOrdering Facility: [facility] Address: [address] [place] [address] Performed By: #### T SCR ####[facility] BANKCLIA [id number] [place] [address] [place] Rh Nom (Bld) Positive [facility] Comment on above: Order Comment: Speci men Type: BLOOD SPECIMENOrdering Facility: [facility] Address: [facility] [address] [place] [address] Performed By: #### T SCR ####[facility] BLOOD BANKCLIA [id number] [place] [id number] [facility] TYPE AND SCREEN EXPIRATION 12/09/2024 23:59 Normal [facility] Comment on above: Order Comment: Speci men Type: BLOOD SPECIMENOrdering Facility: [facility] Address: [place] [id number] Performed By: #### T SCR ####[facility] BLOOD BANKCLIA [id number] [address] HbA1c (Bld) [Mass fraction]o n 12-03-2024 Interpretation and review of laboratory results Abnormal Replaced by [facility] - Hematology and Cell countson 12-03-2024 HbA1c (Bld) [Mass fraction] 5.80 % [facility] XR CHEST 2V FRONTAL/LATon * * *Final [...] skeletal findings. IMPRESSION: No acute radiographic abnormality. Publicity Expert: ROSS Transcribe Date/Time: Nov 18 2024 12:10P Dictated by : VIOLET MONTENEGRO MD This examination was interpreted and the report reviewed and electronically signed by: VIOLET MONTENEGRO MD on Nov 18 2024 12:12PM EST [id number]^ [facility] Radiology, Radiologist, - 11/19/2024 * [...] skeletal findings. IMPRESSION: No acute radiographic abnormality. Publicity Expert: [facility] Transcribe Date/Time: Nov 18 2024 12:10P Dictated by : VIOLET MONTENEGRO MD This examination was interpreted and the report reviewed and electronically signed by: VIOLET MONTENEGRO MD on Nov 18 2024 12:12PM EST [id number]^ ACN [facility] XR CHEST 2V FRONTAL/LATOrder ed By: Radiologist Radiology on 11-18-2024 [facility] Work Phone: HISTORY PHYSICALon HISTORY PHYSICAL HNO ID: [id number] Author: MAXINE SINGH APRN.AIRFRAME AND POWERPLANT MECHANIC Service: ? Author Type: Clinical Nurse Specialist Type: H&P Filed: 11/18/2024 12:26 Note Text: [facility] HISTORY AND PHYSICAL EXAMINATION SERVICE DATE: 11/14/2024 SERVICE TIME: 3:47 PM PRIMARY CARE PHYSICIAN: Galindo Miller CNP, NURSING HOME AIDE Assessment Patient has the following medical conditions which may affect ashley-operative course: Atrial fibrillation (HCC) Assessment: takes Eliquis daily, will stop 2 days pre op,currently stable Benign essential HTN Assessment: takes Lisinopril,Metoprolol, stable BP 147/56 taken at [facility] visit 11/15/24 CAD (coronary artery disease) Assessment: had LAD stent placed 2005 followed per Door To Door Selling Agent Dr. Roberson DM type 2 (diabetes mellitus, type 2) ([facility]) Assessment: takes Metformin,Glipizide currently stable Glucose Date Value Ref Range Status 10/20/2024 135 (H) 74 - 99 mg/dL Final Comment: The [place] Diabetes Association (ADA) provides guidance for cutoff [...] Standards of Medical Care in Diabetes 2016, [place] [employer]. Diabetes Care. 2016.39(Suppl 1). HLD [...] large neck Non-male patient STOP-Bang Score: 1 [id number] Score: Age: >=75 Sex: female CHF history: No Hypertension history: Yes Stroke/TIA/thromboembo lism history: No Vascular disease history: No Diabetes history: Yes [id number] Score: 5 ARISCAT Score: Age: >80 Preoperative [...] at this time: cardiology (cardiac clearance in [facility] of 11/07/[address] Jose Roberson). [...] W/O DANDC (more content not included)... Normal [facility] XR CHEST 2V FRONTAL/LATon XR CHEST 2V [...] skeletal findings. IMPRESSION: No acute radiographic abnormality. Publicity Expert: PSCB Transcribe Date/Time: Nov 18 2024 12:10P Dictated by : VIOLET MONTENEGRO MD This examination was interpreted and the report reviewed and electronically signed by: VIOLET MONTENEGRO MD on Nov 18 2024 12:12PM EST [id number] Normal [facility] Radiology Study observation (narrative) [facility] HISTOLOGY - TISSUE EXAMon LAB AP CASE REPORT Normal [facility] Comment on above: Result Comment: Surg ical Pathology Case: [id number] Authorizing Provider: Bradford Davis MD Collected: 11/13/2024 1100 Ordering Location: [facility] Received: 11/13/2024 [facility] Pathologist: Cyndee Eden MD Specimens: A) - Large Intestine, Cecum, cecum polyp to r/o adenoma B) - Large Intestine, Right/Ascending Colon, asending EMR polyp to R/O adenoma Performed By: #### L [id number] ####[facility] (BEAKER)[address] [place] [address] LAB AP CLINICAL INFORMATION Order Diagnoses Normal [facility] Comment on above: Result Comment: R10. 9 - Abdominal pain, unspecified site [ICD-10-CM] Performed By: #### L [id number] ####[facility] (BEAKER)[address] [place] [address] LAB AP DIAGNOSIS COMMENT B. Due to exten sive specimen fragmentation, it is not possible to differentiate a sessile serrated adenoma from a hyperplastic polyp. Suggest endoscopic correlation and close follow-up. [facility] Comment on above: Performed By: #### L [id number] ####[facility] ([facility])[address] [facility] [address] LAB AP GROSS DESCRIPTION [facility] Comment on above: Result Comment: A. L arge Intestine, Cecum. Part A is received in formalin labeled Saeed Cornell and cecum polyp to rule out adenoma . It consists of 2 frank-pink, irregular pieces of mucosal tissue measuring 0.2 cm and 0.4 cm in greatest dimension. The specimen is submitted in toto in 1 cassette. Brandi Menendez, Pathologists' Senior Functional Analyst student Trinidad Ornelas Pathologists' Senior Functional Analyst student Johnnie. Large Intestine, Right/Ascending Colon. Part [...] to a surgical board. Brandi Menendez, Pathologists' Senior Functional Analyst student Trinidad Ornelas, Pathologists' Senior Functional Analyst student Performed By: #### L [id number] ####[facility] ([facility])[address] [place] [address] LAB AP MICROSCOPIC DESCRIPTION Microscopic examination performed. [facility] Comment on above: Performed By: #### L [id number] ####[facility] ([facility])[address] [place] [address] LAB AP REPORT FINAL DIAGNOSIS NARRATIVE [facility] Comment on above: Result Comment: A. C olon, cecal polyp, polypectomy: - Tubular adenoma. - No high grade dysplasia is seen. B. Colon, ascending polyp, polypectomy: - Multiple fragments of serrated polyp with no dysplasia. - See comment. Performed By: #### L [id number] ####[facility] ([facility])[address] [place] [address] POCT GLUCOSE METER UNSOLICIT ED RESULTSon 11-13-2024 Glucose [Mass/Vol] 120 mg/dL High 70-105 [facility] Comment on above: Order Comment: Waive d Testing in the ED is performed under the ED CLIA certificate #[id number]. Result Comment: jhag eman Performed By: #### L [id number] #### [facility] (BEAKER) [address] [place] [address] Prep for Procedureon 025 Prep for Procedure [id number] Saeed Sarabia 1940 F Date Provider Department Center 11/13/2024 [facility] CHIL[facility] PREOP [facility] Family History Problem Relation Age of Onset Heart attack Mother Coronary artery disease Mother Heart attack Father Coronary artery disease Father Multiple sclerosis Sister Family Status - Relation Status Age at Mother Father Sister Normal [facility] CNPMalu 11-07-2024 CNPN Telephone (OGFVWE) SAEED SARABIA ([id number]) 1940 F Date Time Provider Department 11/07/24 LUCIANA GREENFVWE During your visit today, we recorded the following information about you: Alton Wang 11/07/2024 4:33 PM Signed Door To Door Selling Agent office called to give update from office [...] Status:Closed by ALTON WANG on 11/14/24 Normal [facility] HPon 11-07-2024 [facility] Cardiology - [facility] Subjective Saeed Sarabia is a 84 y.o. year old female patient being seen for 9 mo follow up CAD, CHF, PAF, and hypertension. She needs clearance for colonoscopy scheduled 11/13/2024 at [facility] with Dr. Davis. Patient also states she needs clearance for D&C at [facility] for uterine polyp. Denies chest pain, [...] Mood and (more content not included)... Normal [facility] Office Visiton 11-07-2024 Follow-up visit [id number] Saeed Sarabia 1940 F Date Provider Department Center 11/07/2024 Navarro-JOSE ROBERSON [facility] Family History Problem Relation Age of Onset Heart attack Mother Coronary artery disease Mother Heart attack Father Coronary artery disease Father Multiple sclerosis Sister Family Status - Relation Status Age at Mother Father Sister Level of Service:53497 [place] OFFICE/OUTPATIENT ESTABLISHED MOD MDM 30 MIN [facility] Jose Cruz 11-05-2024 [place] Telephone (OGFVWE) SAEED SARABIA ([id number]) 1940 F Date Time Provider Department 11/05/24 LUCIANA GREEN OGFVWE During your visit today, we recorded the following information about you: Rehan Rashid RN 11/05/2024 11:19 AM Signed ----- Message from Luciana Green DO sent at 11/04/2024 4:08 PM EST ----- Regarding: chad TRACIE Zelaya, Can you let this patient or her know that I was unable to reach her net web developer and to have them tell the net web developer to review my note and that she is going to have surgery and they will need recs. Epic wont let me message him due to him being at [place] but we can see things in care [...] Status:Closed by REHAN RASHID on 11/05/24 Normal [facility] CNOVon 11-04-2024 CNOV Office Visit (OGFVWE ) SAEED SARABIA ([id number]) 1940 F Date Time Provider Department 11/04/24 [...] OB History No obstetric history on file. 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 All questions and concerns were addressed. [...] - Mode (more content not included)... [facility] CASE REPORT [facility] Comment on above: Surgical Pathology R eport Case: [id number] Authorizing Provider: Gabriela Centeno MD Collected: 10/29/2024 10:40 AM Ordering Location: OB/Gynecology Received: 10/29/2024 11:58 AM Pathologist: Sabina Santiago MD Specimen: Endometrium, Biopsy, endonetrium [facility] CLINICAL HISTORY thickened endometri um on CT and pelvic ultrasound, large polyp prolapsing out of the cervix appears to be attached to endometrial polyp. growt, no bleeding [facility] Sections show limi rashi superficial strips of inactive endometrium without intact underlying stroma. There is no evidence of malignancy in this specimen. An endometrial curetting is recommended if clinical indicated. [facility] FIN[facility] DIAGNOSIS [facility] Comment on above: A. Endometrium, biop sy: - Superficial strips of inactive endometrium, see comment. FINAL PERFORMING LAB [facility] Comment on above: Diagnostic interpret ation performed at: [facility], [facility], Desk [address]# [id number] Fmd Teacher: Liam Naik MD [facility] GROSS DESCRIPTION [facility] Comment on above: A. Endometrium, Biop sy Received in formalin are multiple frank, soft feathery segments of tissue mixed with mucinous material aggregating to 0.3 x 0.1 x 0.1 cm. Totally submitted in one cassette. February not survive processing. Gross examination performed at [facility], [address] [place] [id number] [facility] 10/29/2024 5:17 PM Specimen Type: CASIU E SPECIMEN Ordering Facility: [facility] Address: [address], [place] [address] Original Ordering Provider: GABRIELA CENTENO [facility] 10-30-2024 [facility] Telephone (OBGFVC) SAEED SARABIA ([id number]) 1940 F Date Time Provider Department 10/30/24 GABRIELA ECNTENO [facility] During your visit today, we recorded the [...] Status:Closed by GABRIELA CENTENO on 10/30/24 Normal [facility] CNOVon 10-29-2024 CNOV Office Visit (NBDH ) SAEED SARABIA ([id number]) 1940 F Date Time Provider Department 10/29/24 12:30 PM BRENDON DORSEY [facility] During your visit today, we recorded the following information about you: Brendon Dorsey MD 10/29/2024 3:53 PM Signed [facility] New Patient Evaluation Date: October 29, 2024 Patient Name: Saeed Sarabia [facility] was asked by to evaluate Saeedjak Wilkinsphreys. Our recommendations of care will be communicated by shared medical record. Reason for Evaluation/Chief complaint: memory concerns Accompanied by: SUBJECTIVE: HPI: Saeed Sarabia is a 84 year old Right handed female who presents to the [facility] for an initial evaluation. Patient has [...] Never D (more content not included)... Normal [facility] CNOV Office Visit (OBGYST ) SAEED SARABIA ([id number]) 1940 F Date Time Provider Department 10/29/24 10:00 AM US TECH 1 [facility] OBGYST During your visit today, we recorded the following information about you: Pulse Blood pressure Weight Height 66/minute 155/73 68 kg 1.676 m Gabriela Centeno MD 10/29/2024 8:34 PM Signed Saeed Sarabia is a 84 year old No obstetric history on file. here for SIS. Referred by: Luciana Green [id number] [address] Chief Complaint: Thickened endometrium Endometrial Biopsy: No [...] CASSY GREEN (more content not included)... Normal [facility] SURGICAL PATHOLOGYon 025 CASE REPORT Normal [facility] Comment on above: Order Comment: Speci men Type: TISSUE SPECIMENOrdering Facility: [facility] Address: [address] [place] [address] Result Comment: Surg ical Pathology Report Case: [id number] Authorizing Provider: Gabriela Centeno MD Collected: 10/29/2024 10:40 AM Ordering Location: OB/Gynecology Received: 10/29/2024 11:58 AM Pathologist: Sabina Santiago MD Specimen: Endometrium, Biopsy, endonetrium Performed By: #### S ####[facility] LABCLIA [id number] [place] [address] [place] CLINICAL HISTORY thickened endometriu m on CT and pelvic ultrasound, large polyp prolapsing out of the cervix appears to be attached to endometrial polyp. growt, no bleeding Normal [facility] Comment on above: Order Comment: Speci men Type: TISSUE SPECIMENOrdering Facility: [facility] Address: [address] [place] [address] Performed By: #### S ####[facility] LABCLIA [id number] [place] [address] [place] DIAGNOSIS COMMENT Sections show limite d superficial strips of inactive endometrium without intact underlying stroma. There is no evidence of malignancy in this specimen. An endometrial curetting is recommended if clinical indicated. Normal [facility] Comment on above: Order Comment: Speci men Type: TISSUE SPECIMENOrdering Facility: [facility] Address: [address] [place] [address] Performed By: #### S ####[facility] LABCLIA [id number] [place] [address] [place] FINAL DIAGNOSIS Normal [facility] Comment on above: Order Comment: Speci men Type: TISSUE SPECIMENOrdering Facility: [facility] Address: [address] [place] [address] Result Comment: A. E ndometrium, biopsy: - Superficial strips of inactive endometrium, see comment. Performed By: #### S ####[facility] LABCLIA [id number] [place] [address] [place] FINAL PERFORMING LAB Normal [facility] Comment on above: Order Comment: Speci men Type: TISSUE SPECIMENOrdering Facility: [facility] Address: [address] [place] [address] Result Comment: Diag nostic interpretation performed at: [facility], [address] [place] [address] CLIA# [id number] Fmd Teacher: Liam Naik MD Performed By: #### S ####[facility] LABIA [id number] [address] STATES OF [facility] GROSS DESCRIPTION Normal [facility] Comment on above: Order Comment: Speci men Type: TISSUE SPECIMENOrdering Facility: [facility] Address: [address] [place] [address] Result Comment: A. E ndometrium, Biopsy Received in formalin are multiple frank, soft feathery segments of tissue mixed with mucinous material aggregating to 0.3 x 0.1 x 0.1 cm. Totally submitted in one cassette. May not survive processing. Gross examination performed at [facility], [address] [place] [address] 10/29/2024 5:17 PM Performed By: #### S ####[facility] LABIA [id number] [place] [address] [place] US Uterus and [...] Read By: Gabriela Centeno M.D. MATERNAL MEDICINE [facility] Radiology [facility]ative[facility] (OGFVWE ) SAEED SARABIA ([id number]) 1940 F Date Time Provider Department 10/24/24 1:30 PM LUCIANA GREEN OGFVWE During your visit today, we recorded the following information about you: Pulse Blood pressure Weight Height 65/minute 120/70 70.3 kg 1.651 m Cara Young MA 10/24/2024 3:36 PM Signed Criminal Justice Professor offered: Patient declines. Luciana Green, 10/24/2024 3:36 [...] OB History No obstetric history on file. 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 As applicable, any other physician, advance practice provider, medical student, or other health professional student that will be observing or involved in the sensitive examination for educational or training purposes was discussed with the Patient or Authorized International Logistics Manager. The Patient or Authorized International Logistics Manager has agreed to proceed with the sensitive examination. (Sensitive examination includes inspection and/or palpation of the breasts, pelvis, prostate and anorectal regions). ASSESSMENT AND PLAN: Assessment AND Plan Thickened endometrium - Likely secondary to polyp seen protruding through cervix - Recommend US/SIS to evaluate and discussed need to (more content not included)... Normal [facility] Orders Onlyon 10-23-2024 Orders Only [id number] Saeed Sarabia 1940 F Date Provider Department Center 10/23/2024 [id number], MALISSA ASC OR JOSEI Family History Problem Relation Age of Onset Heart attack Mother Coronary artery disease Mother Heart attack Father Coronary artery disease Father Multiple sclerosis Sister Family Status - Relation Status Age at Mother Father Sister Normal [facility] SURGICAL PATHOLOGYon [facility] CASE REPORT [facility] Comment on above: Surgical Pathology R eport Case: [id number] Authorizing Provider: Atul Crowder MD Collected: 10/21/2024 10:59 AM Ordering Location: [facility] Received: 10/21/2024 12:39 PM Endoscopy - ENDO Pathologist: Ned Michel MD Specimens: A) - Small Bowel, Duodenum, Biopsy, Jar A, R/O Whipple's Disease B) - Stomach, Biopsy, Jar B R/O H.Pylori [facility] FINAL DIAGNOSIS [facility] Comment on above: A. Duodenum, biopsy: - Duodenal mucosa with no significant pathologic change. B. Stomach, biopsy: - Gastric antral and oxyntic-type mucosa with mild reactive epithelial changes and histologic features consistent with proton pump inhibitor use. - No intestinal metaplasia or morphologic evidence of Helicobacter pylori organisms. FINAL PERFORMING LAB [facility] Comment on above: Diagnostic interpret ation performed at: [facility], [address] [place] [address], Desk [address] [address] CLIA# [id number] Fmd Teacher: Liam Naik MD [facility] GROSS DESCRIPTION [facility] Comment on above: A. Small [...] in one cassette. Gross examination performed at [facility], [address] [place] [address] October 21, 2024 5:42 PM Specimen Type: TISSU E SPECIMEN Ordering Facility: [facility] Address: [address] [place] [address] Original Ordering Provider: ATUL CROWDER [facility] ANE POSTPROC EVALon 025 ANES POSTPROC EVAL HNO ID: [id number] Author: RAMIREZ SOLIS MD Service: Critical Care Author Type: Anesthesiologist Type: Anesthesia Postprocedure Evaluation Filed: 10/21/2024 12:59 Note Text: POST ANESTHESIA EVALUATION NOTE : 1940 Procedure Summary Date: 10/21/24 Room / Location: [facility] Endoscopy - ENDO Anesthesia Start: 1052 Anesthesia Stop: 1115 Procedure: EGD DIAGNOSTIC Diagnosis: (Dyspepsia, Unspecified) Scheduled Providers: Atul Crowder MD; Ramirez Solis MD; Cayla Edward APRN.BATCH DUMPER Responsible Provider: Ramirez Solis MD Anesthesia Type: [...] October 21, 2024 TIME: 12:59 PM CSN: [id number] Normal [facility] ANES PRE-OPon 10-21-2024 ANES PRE-OP HNO ID: [id number] Author: RAMIREZ SOLIS MD Service: Critical Care Author Type: Anesthesiologist Type: Anesthesia Preprocedure Evaluation Filed: 10/21/2024 10:23 Note Text: ANESTHESIOLOGY DAY OF SURGERY NOTE : 1940 Procedure Information Date/Time: 10/21/24 1000 Scheduled providers: Atul Crowder MD; Ramirez Solis MD; Cayla Edward APRN.BATCH DUMPER Procedure: EGD DIAGNOSTIC Location: [facility] Endoscopy - ENDO Estimated body mass [...] three times d (more content not included)... [facility] 10-21-2024 [facility] HNO ID: [id number] Author: AL TOHMPSON MD Service: General Internal Medicine Author Type: [...] further evaluation. 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 Cholelithiasis. 4. [...] and unintentional weight loss. Recent admission in [place] for similar symptoms with negative CTH and [...] WNL - Follow up with neurology brain [facility] as an outpatient - Follow up with [...] Thompson MD (more content not included)... Normal [facility] CONSULT PROGon 10-21-2024 CONSULT PROG HNO ID: [id number] Author: DAI BHATT APRN.NURSING HOME AIDE Service: Psychiatry Author Type: Nurse Practitioner Type: [...] Rigidity, Hyperreflexia, or Clonus. Moved Extremities Against Ambrose. Gait / Station: Unable to Examine: sitting in a chair at the bedside MENTAL STATUS EXAMINATION: Appearance: In hospital gown, well groomed, good eye contact, and sitting in chair at the bedside Beh (more content not included)... Normal [facility] HISTORY PHYSICALon HISTORY PHYSICAL HNO ID: [id number] Author: ATUL CROWDER MD Service: Gastroenterology Author Type: Physician Type: H&P Filed: 10/21/2024 08:02 Note Text: HISTORY AND PHYSICAL Saeed Sraabia, 84 year old female with PMH afib(eliquis), [...] MAC Additional Comments: None Atul Crowder MD [facility] NURSING PROGon 10-21-2024 NURSING PROG HNO ID: [id number] Author: JOIE FUENTES, RN Service: Nursing Author [...] (RECOMMENDATION): None Electronically Signed By: Joie Fuentes [facility] SURGICAL PATHOLOGYon 025 CASE REPORT [facility] Comment on above: Order Comment: Speci men Type: TISSUE SPECIMENOrdering Facility: [facility] Address: [address] [place] [address] Result Comment: Surg ical Pathology Report Case: [id number] Authorizing Provider: Atul Crowder MD Collected: 10/21/2024 10:59 AM Ordering Location: [facility] Received: 10/21/2024 12:39 PM Endoscopy - ENDO Pathologist: Ned Michel MD Specimens: A) - Small Bowel, Duodenum, Biopsy, Jar A, R/O Whipple's Disease B) - Stomach, Biopsy, Jar B R/O H.Pylori Performed By: #### S ####[facility] LAB[facility]IA [id number] [address] [place] FINAL DIAGNOSIS Normal [facility] Comment on above: Order Comment: Speci men Type: TISSUE SPECIMENOrdering Facility: [facility] Address: [address] [place] [address] Result Comment: AKen Mercado uodenum, biopsy: - Duodenal mucosa with no significant pathologic change. B. Stomach, biopsy: - Gastric antral and oxyntic-type mucosa with mild reactive epithelial changes and histologic features consistent with proton pump inhibitor use. - No intestinal metaplasia or morphologic evidence of Helicobacter pylori organisms. Performed By: #### S ####[facility] LABCLIA [id number] [address] OF [facility] FINAL PERFORMING LAB [facility] Comment on above: Order Comment: Speci men Type: TISSUE SPECIMENOrdering Facility: [facility] Address: [address] [place] [address] Result Comment: Diag nostic interpretation performed at: [facility], [address] [place] [address] CLIA# [id number] Fmd Teacher: Liam Naik MD Performed By: #### S ####[facility] LABCLIA [id number] [address] GROSS DESCRIPTION Normal [facility] Comment on above: Order Comment: Speci men Type: TISSUE SPECIMENOrdering Facility: [facility] Address: [address] [place] [address] Result Comment: A. S mall Bowel, Duodenum, Biopsy Received in formalin are multiple pieces of frank, soft tissue aggregating to 1.2 x 0.2 x 0.2 cm. Totally submitted in one cassette. B. Stomach, Biopsy Received in formalin are multiple pieces of frank, soft tissue aggregating to 0.9 x 0.3 x 0.2 cm. Totally submitted in one cassette. Gross examination performed at [facility], [address] [place] [address] October 21, 2024 5:42 PM Performed By: #### S ####[facility] LABCLIA [id number] [place] [id number] [place] Upper GI endoscopyon 10-21-2 025 Upper GI endoscopy [facility] Gastrointestinal Endoscopy Patient Name: Saeed aSrabia Procedure Date: 10/21/2024 10:40 AM Date of : 1940 Admit Type: Inpatient Age: 84 Room: [place] [address] Gender: Female Note Status: Finalized Attending MD: Atul Crowder MD, [id number] Procedure: Upper GI endoscopy Indications: Dyspepsia Providers: [...] history and physical. Referring Physician: Ned Gonzales (bookkeeping service sales agent) Anthony (Referring MD) Medicines: Monitored Anesthesia Care [...] antiplatelet agents. Procedure Code(s): --- Professional --- 86589, Esophagogastroduodenos copy, flexible, transoral; with biopsy, single or multiple Diagnosis Code(s): --- Professional --- K31.89, Other diseases of stomach and duodenum R10.13, Epigastric pain CPT copyright 2020 [employer]. All rights reserved. The codes documented in this report are preliminary and upon ent consultant review may be revised to meet current compliance requirements. Attending Participation: I personally performed the entire procedure. Scope In: 10:59:20 AM Scope Out: 11:04:58 AM MD Atul Dumas MD 10/21/2024 11:15:51 AM This report has been signed electronically by Atul Crowder MD Number of Addenda: 0 Note Initiated On: 10/21/2024 10:40 AM Estimated Blood Loss: Estimated blood loss was minimal. Normal [facility] CBC W Auto Differential pane l (Bld)on 10-20-2024 Basophils (Bld) [#/Vol] 0.03 10*3/uL Normal <0.11 [facility] Comment on above: Order Comment: Speci men Type: BLOOD SPECIMENOrdering Facility: [facility] Address: [address] [place], [place] [address] [id number] Performed By: #### 5 7021-8 ####[facility] LABORATORYCLIA [id number] [address] [place] Basophils/100 WBC (Bld) 0.4 % Normal [facility] Comment on above: Order Comment: Speci men Type: BLOOD SPECIMENOrdering Facility: [facility] Address: [address] [place] [address] Performed By: #### 5 7021-8 ####[facility]ORATORYCLIA [id number] [address] [place] Differential cell count method Nom (Bld) Auto Normal [facility] Comment on above: Order Comment: Speci men Type: BLOOD SPECIMENOrdering Facility: [facility] Address: [address] [place] [address] Performed By: #### 5 7021-8 ####[facility] LABORATORYCLIA [id number] [place] [address] [place] Eosinophils (Bld) [#/Vol] 0.32 10*3/uL Normal <0.46 [facility] Comment on above: Order Comment: Speci men Type: BLOOD SPECIMENOrdering Facility: [facility] Address: [address] [place] [address] Performed By: #### 5 7021-8 ####[facility] LABORATORYCLIA [id number] [address] Eosinophils/100 WBC (Bld) 4.6 % Normal [facility] Comment on above: Order Comment: Speci men Type: BLOOD SPECIMENOrdering Facility: [facility] Address: [address] [place] [address] Performed By: #### 5 7021-8 ####[facility] LABORATORYCLIA [id number] [address] [place] Erythrocyte distribution width (RBC) [Ratio] 14.0 % Normal 11.5-15.0 [facility] Comment on above: Order Comment: Speci men Type: BLOOD SPECIMENOrdering Facility: [facility] Address: [address] [place] [address] Performed By: #### 5 7021-8 ####[facility] LABORATORYCLIA [id number] [place] [id number] [place] Hematocrit (Bld) [Volume fraction] 36.0 % Normal 36.0-46.0 [facility] Comment on above: Order Comment: Speci men Type: BLOOD SPECIMENOrdering Facility: [facility] Address: [address] [place] [address] Performed By: #### 5 7021-8 ####[facility] LABORATORYCLIA [id number] [place] [address] [place] Hemoglobin (Bld) [Mass/Vol] 11.9 g/dL Normal 11.5-15.5 [facility] Comment on above: Order Comment: Speci men Type: BLOOD SPECIMENOrdering Facility: [facility] Address: [address] [place] [address] Performed By: #### 5 7021-8 ####[facility] LABORATORYCLIA [id number] [place] [id number] [place] Immature granulocytes (Bld) [#/Vol] 10*3/uL Normal <0.10 [facility] Comment on above: Order Comment: Speci men Type: BLOOD SPECIMENOrdering Facility: [facility] Address: [address] [place] [address] Performed By: #### 5 7021-8 ####[facility] LABORATORYCLIA [id number] [place] [id number] [place] Immature granulocytes/100 WBC (Bld) 0.1 % Normal [facility] Comment on above: Order Comment: Speci men Type: BLOOD SPECIMENOrdering Facility: [facility] Address: [address] [place] [address] Performed By: #### 5 7021-8 ####[facility] LABORATORYCLIA [id number] [place] [id number] [place] Lymphocytes (Bld) [#/Vol] 2.02 10*3/uL Normal 1.00-4.00 [facility] Comment on above: Order Comment: Speci men Type: BLOOD SPECIMENOrdering Facility: [facility] Address: [address] [place] [address] Performed By: #### 5 7021-8 ####[facility] LABORATORYCLIA [id number] [place] [address] [place] Lymphocytes/100 WBC (Bld) 28.9 % Normal [facility] Comment on above: Order Comment: Speci men Type: BLOOD SPECIMENOrdering Facility: [facility] Address: [address] [place] [address] Performed By: #### 5 7021-8 ####[facility] LABORATORYCLIA [id number] [address] [place] MCH (RBC) [Entitic mass] 30.4 pg Normal 26.0-34.0 [facility] Comment on above: Order Comment: Speci men Type: BLOOD SPECIMENOrdering Facility: [facility] Address: [address] [place] [address] Performed By: #### 5 7021-8 ####[facility] LABORATORYCLIA [id number] [address] STATES [facility] MCHC (RBC) [Mass/Vol] 33.1 g/dL Normal 30.5-36.0 [facility] Comment on above: Order Comment: Speci men Type: BLOOD SPECIMENOrdering Facility: [facility] Address: [address] [place] [address] Performed By: #### 5 7021-8 ####[facility] LABORATORYCLIA [id number] [place] [address] [place] MCV (RBC) [Entitic vol] 92.1 fL Normal 80.0-100.0 [facility] Comment on above: Order Comment: Speci men Type: BLOOD SPECIMENOrdering Facility: [facility] Address: [address] [place] [address] Performed By: #### 5 7021-8 ####[facility] LABORATORYCLIA [id number] [address] [place] Monocytes (Bld) [#/Vol] 0.70 10*3/uL Normal <0.87 [facility] Comment on above: Order Comment: Speci men Type: BLOOD SPECIMENOrdering Facility: [facility] Address: [address] [place] [address] Performed By: #### 5 7021-8 ####[facility] LABORATORYCLIA [id number] [place] [id number] [place] Monocytes/100 WBC (Bld) 10.0 % Normal [facility] Comment on above: Order Comment: Speci men Type: BLOOD SPECIMENOrdering Facility: [facility] Address: [address] [place] [address] Performed By: #### 5 7021-8 ####[facility] LABORATORYCLIA [id number] [place] [address] [place] Neutrophils (Bld) [#/Vol] 3.90 10*3/uL Normal 1.45-7.50 [facility] Comment on above: Order Comment: Speci men Type: BLOOD SPECIMENOrdering Facility: [facility] Address: [address] [place] [address] Performed By: #### 5 7021-8 ####[facility] LABORATORYCLIA [id number] [place] [id number] [place] Neutrophils/100 WBC (Bld) 56.0 % Normal [facility] Comment on above: Order Comment: Speci men Type: BLOOD SPECIMENOrdering Facility: [facility] Address: [address] [place] [address] Performed By: #### 5 7021-8 ####[facility] LABORATORYCLIA [id number] [place] [id number] [place] Nucleated RBC (Bld) [#/Vol] 10*3/uL Normal <0.01 [facility] Comment on above: Order Comment: Speci men Type: BLOOD SPECIMENOrdering Facility: [facility] Address: [address] [place] [address] Performed By: #### 5 7021-8 ####[facility] LABORATORYCLIA [id number] [place] [id number] [place] Nucleated RBC/100 WBC (Bld) [Ratio] 0.0 /100 WBC Normal [facility] Comment on above: Order Comment: Speci men Type: BLOOD SPECIMENOrdering Facility: [facility] Address: [address] [place] [address] Performed By: #### 5 7021-8 ####[facility] LABORATORYCLIA [id number] [place] [id number] [place] Platelet mean volume (Bld) [Entitic vol] 9.4 fL Normal 9.0-12.7 [facility] Comment on above: Order Comment: Speci men Type: BLOOD SPECIMENOrdering Facility: [facility] Address: [address] [place] [address] Performed By: #### 5 7021-8 ####[facility] LABORATORYCLIA [id number] [place] [address] [place] Platelets (Bld) [#/Vol] 278 10*3/uL Normal 150-400 [facility] Comment on above: Order Comment: Speci men Type: BLOOD SPECIMENOrdering Facility: [facility] Address: [address] [place] [address] Performed By: #### 5 7021-8 ####[facility] LABORATORYCLIA [id number] [place] [address] [place] RBC (Bld) [#/Vol] 3.91 10*6/uL Normal 3.90-5.20 [facility] Comment on above: Order Comment: Speci men Type: BLOOD SPECIMENOrdering Facility: [facility] Address: [address] [place] [address] Performed By: #### 5 7021-8 ####[facility] LABORATORYCLIA [id number] [place] [id number] [place] WBC (Bld) [#/Vol] 6.98 10*3/uL Normal 3.70-11.00 [facility] Comment on above: Order Comment: Speci men Type: BLOOD SPECIMENOrdering Facility: [facility] Address: [address] [place] [address] Performed By: #### 5 7021-8 ####[facility] LABORATORYCLIA [id number] [address] [place] CONSULTon 10-20-2024 CONSULT HNO ID: [id number] Author: PUJA PEREZ MD Service: Psychiatry Author Type: Physician Type: Consults Filed: 10/20/2024 11:47 Note Text: CL NEW - PSYCHIATRY INITIAL CONSULTATION NOTE SERVICE DATE: October 20, 2024 SERVICE TIME: 7:17 AM Visit Type: In person CONSULTING SERVICE : Psychiatry, requested by REASON FOR CONSULTATION: Delirium. Subjective IDENTIFYING INFO: Ms. Sarabia is a 84 year old female from [place], [place] HISTORY OF PRESENT ILLNESS : Patient [...] spouse/partner and adult children Legal History: Denied Latter-Day Affiliation(s): none Abuse History: She denied a [...] Rigidity, Hyperreflexia, or Clonus. Moved Extremities Against Ambrose. Gait / Station: Not assessed MENTAL STATUS [...] of illnes (more content not included)... Normal [facility] Comprehensive metabolic 2000 panelon 10-20-2024 Albumin [Mass/Vol] 3.5 g/dL Low 3.9-4.9 [facility] Comment on above: Order Comment: Speci men Type: BLOOD SPECIMENOrdering Facility: [facility] Address: [address] [place] [address] Performed By: #### 2 4323-8 ####[facility] LABORATORYCLIA [id number] [place] [address] [place] ALP [Catalytic activity/Vol] 58 U/L Normal 34-123 [facility] Comment on above: Order Comment: Speci men Type: BLOOD SPECIMENOrdering Facility: [facility] Address: [address] [place] [address] Performed By: #### 2 4323-8 ####[facility] LABORATORYCLIA [id number] [place] [address] [place] ALT [Catalytic activity/Vol] 16 U/L Normal 7-38 [facility] Comment on above: Order Comment: Speci men Type: BLOOD SPECIMENOrdering Facility: [facility] Address: [address] [place] [address] Performed By: #### 2 4323-8 ####[facility] LABORATORYCLIA [id number] [place] [address] [place] Anion gap [Moles/Vol] 10 mmol/L Normal 8-15 [facility] Comment on above: Order Comment: Speci men Type: BLOOD SPECIMENOrdering Facility: [facility] Address: [address] [place] [address] Performed By: #### 2 4323-8 ####[facility] LABORATORYCLIA [id number] [place] [id number] [place] AST [Catalytic activity/Vol] 20 U/L Normal 13-35 [facility] Comment on above: Order Comment: Speci men Type: BLOOD SPECIMENOrdering Facility: [facility] Address: [address] [place] [address] Performed By: #### 2 4323-8 ####[facility] LABORATORYCLIA [id number] [place] [id number] [place] Bilirubin [Mass/Vol] 0.3 mg/dL Normal 0.2-1.3 [facility] Comment on above: Order Comment: Speci men Type: BLOOD SPECIMENOrdering Facility: [facility] Address: [address] [place] [address] Performed By: #### 2 4323-8 ####[facility] LABORATORYCLIA [id number] [place] [address] [place] Calcium [Mass/Vol] 9.0 mg/dL Normal 8.5-10.2 [facility] Comment on above: Order Comment: Speci men Type: BLOOD SPECIMENOrdering Facility: [facility] Address: [address] [place] [address] Performed By: #### 2 4323-8 ####[facility] LABORATORYCLIA [id number] [place] [id number] [place] Chloride [Moles/Vol] 99 mmol/L Normal 98-107 [facility] Comment on above: Order Comment: Speci men Type: BLOOD SPECIMENOrdering Facility: [facility] Address: [address] [place] [address] Performed By: #### 2 4323-8 ####[facility] LABORATORYCLIA [id number] [place] [id number] [place] CO2 [Moles/Vol] 28 mmol/L Normal 22-30 [facility] Comment on above: Order Comment: Speci men Type: BLOOD SPECIMENOrdering Facility: [facility] Address: [address] [place] [address] Performed By: #### 2 4323-8 ####[facility] LABORATORYCLIA [id number] [place] [id number] [place] [facility] Creatinine [Mass/Vol] 0.74 mg/dL Normal 0.58-0.96 [facility] Comment on above: Order Comment: Speci men Type: BLOOD SPECIMENOrdering Facility: [facility] Address: [address] [place] [address] Performed By: #### 2 4323-8 ####[facility] LABORATORYCLIA [id number] [address] Creatinine and Glomerular filtration rate.predicted panel (S/P/Bld) 80 mL/min/1.73m??? Normal >=60 [facility] Comment on above: Order Comment: Speci men Type: BLOOD SPECIMENOrdering Facility: [facility] Address: [address] [place] [address] Result Comment: Roz mated Glomerular Filtration Rate [...] actual GFR. Performed By: #### 2 4323-8 ####[facility] LABORATORYCLIA [id number] [place] [id number] [place] Glucose [Mass/Vol] 135 mg/dL High 74-99 [facility] Comment on above: Order Comment: Speci men Type: BLOOD SPECIMENOrdering Facility: [facility] Address: [address] [place] [address] Result Comment: The [employer] (ADA) provides guidance for cutoff [...] Standards of Medical Care in Diabetes 2016, [employer]. Diabetes Care. 2016.39(Suppl 1). Performed By: #### 2 4323-8 ####[facility] LABORATORYCLIA [id number] [place] [address] [place] Potassium [Moles/Vol] 3.7 mmol/L Normal 3.7-5.1 [facility] Comment on above: Order Comment: Speci men Type: BLOOD SPECIMENOrdering Facility: [facility] Address: [address] [place] [address] Performed By: #### 2 4323-8 ####[facility] LABORATORYCLIA [id number] [place] [id number] [place] Protein [Mass/Vol] 6.2 g/dL Low 6.3-8.0 [facility] Comment on above: Order Comment: Speci men Type: BLOOD SPECIMENOrdering Facility: [facility] Address: [address] [place] [address] Performed By: #### 2 4323-8 ####[facility] LABORATORYCLIA [id number] [place] [id number] [place] Sodium [Moles/Vol] 137 mmol/L Normal 136-144 [facility] Comment on above: Order Comment: Speci men Type: BLOOD SPECIMENOrdering Facility: [facility] Address: [address] [place] [address] Performed By: #### 2 4323-8 ####[facility] LABORATORYCLIA [id number] [place] [id number] [place] Urea nitrogen [Mass/Vol] 11 mg/dL Normal 7-21 [facility] Comment on above: Order Comment: Speci men Type: BLOOD SPECIMENOrdering Facility: [facility] Address: [address] [place] [address] Performed By: #### 2 4323-8 ####[facility] LABORATORYIA [id number] [place] [address] [place] HISTORY PHYSICALon HISTORY PHYSICAL HNO ID: [id number] Author: AL THOMPSON MD Service: ? Author Type: Physician Type: H&P Filed: 10/20/2024 19:06 Note Text: INTERNAL MEDICINE HANDP EXAMINATION SERVICE DATE: 10/20/2024 SERVICE TIME: 6:22 PM PRIMARY CARE PHYSICIAN: Galindo Miller, NURSING HOME AIDE, NURSING HOME AIDE CHIEF COMPLAINT Recurrent encephalopathy HISTORY OF PRESENT ILLNESS HPI: Ms. Sarabia is a 84 year old female who presents with recurrent encephalopathy. Patient has PMHx of HTN, HLD, DM-2, GERD, HFpEF (LVEF 64%), and Atrial fibrillation (Eliquis). Patient came in from [place] on 10/16/2024 for recurrent mental status change, with hallucinations. History was taken from her at bedside. On 09/17/2024 patient was evaluated for similar complaint at [facility] (acute mental status change with [...] hallucination. According to her , prior to [facility] admission patient was totally functional able to [...] paralysis, seizu (more content not included)... Normal [facility] NURSING PROGon 10-20-2024 NURSING PROG HNO ID: [id number] Author: RED COVINGTON RN Service: Nursing Author [...] no other needs at this time. Normal [facility] CREATININE BLDon 10-19-2024 Creatinine [Mass/Vol] 0.70 mg/dL Normal 0.58-0.96 [facility] Comment on above: Order Comment: Speci men Type: BLOOD SPECIMENOrdering Facility: [facility] Address: [address] [place] [address] Performed By: #### 3 024-7, CRET1, 305-0 ####[facility] LABCLIA [id number] [place] [address] [place] Creatinine and Glomerular filtration rate.predicted panel (S/P/Bld) 85 mL/min/1.73m??? Normal >=60 [facility] Comment on above: Order Comment: Speci men Type: BLOOD SPECIMENOrdering Facility: [facility] Address: [address] [place] [address] Result Comment: Roz mated Glomerular Filtration Rate [...] Performed By: #### 3 024-7, CRET1, 3050-0 ####[facility] LABIA [id number] [place] [address] [place] [facility] Folate [Mass/Vol] 14.7 ng/mL Normal >4.7 [facility] Comment on above: Order Comment: Speci men Type: BLOOD SPECIMENOrdering Facility: [facility] Address: [address] [place] [address] Performed By: #### 2 284-8, 2132-9 ####[facility] LABORATORYCLIA [id number] [place] [address] [place] NURSING PROGon 10-19-2024 NURSING PROG HNO ID: [id number] Author: RDE COVINGTON RN Service: Nursing Author Type: Registered [...] no other needs at this time. Normal [facility] T3Free SerPl-mCncon 10-19-19 25 Free T3 [Mass/Vol] 2.6 pg/mL Normal 2.3-4.1 [facility] Comment on above: Order Comment: Speci men Type: BLOOD SPECIMENOrdering Facility: [facility] Address: [address] [place] [address] Performed By: #### 3 024-7, CRET1, 0 ####[facility] [id number] [place] [address] [place] T4 Free SerPl-mCncon 025 Free T4 [Mass/Vol] 1.5 ng/dL Normal 0.9-1.7 [facility] Comment on above: Order Comment: Akilah nieto Type: BLOOD SPECIMENOrdering Facility: [facility] Address: [address] [place] [address] Performed By: #### 3 024-7, CRET1, 0 ####[facility] [id number] [place] [address] [place] VITAMIN B1 (THIAMINE), WHOLE BLOODon 10-19-2024 Thiamine (Bld) [Moles/Vol] 179.7 nmol/L Normal 84.3-213.3 [facility] Comment on above: Order Comment: Akilah nieto Type: BLOOD SPECIMENOrdering Facility: [facility] Address: [address] [place] [address] Result Comment: This assay measures the concentration of thiamine diphosphate (TDP), the primary active form of vitamin B1. Approximately 90 percent of vitamin B1 present in whole blood is TDP. Thiamine and thiamine monophosphate, which comprise the remaining 10 percent, are not measured. This test was developed, and its performance characteristics determined by the [facility] Department of Pathology and Laboratory Medicine. It has not been cleared or approved by the FDA. The [facility] Department of Pathology and Laboratory Medicine is regulated under CLIA as qualified to perform high-complexity testing. This test is used for clinical purposes. It should not be regarded as investigational or for research. Performed By: #### B 1WB ####[facility] LABCLIA [id number] [place] [address] [place] VITAMIN B6/PYRIDOXINon 10-19 VITAMIN B6 20.3 nmol/L Normal 20.0-125.0 [facility] Comment on above: Order Comment: Speci men Type: BLOOD SPECIMENOrdering Facility: [facility] Address: [address] [place] [address] Result Comment: INTE RPRETIVE INFORMATION: Vitamin B6 (Pyridoxal 5-Phosphate) Pyridoxal 5'-phosphate measured in a specimen collected following an 8-hour or overnight fast accurately indicates vitamin B6 nutritional status. Non-fasting specimen concentration reflects recent vitamin intake. This test was developed and its performance characteristics determined by [facility]. It has not been cleared or approved by the [place] Food and Drug Administration. This test was performed in a CLIA certified laboratory and is intended for clinical purposes. Performed By: [facility] [address] [place] [address] Fmd Teacher: Ash Worley MD, PhD CLIA Number: [id number] Performed By: #### V ITB6 ####[facility] [id number] [place] [address] Vit B12 SerPl-mCncon 025 Cobalamin (Vitamin B12) [Mass/Vol] 229 pg/mL Low 232-1245 [facility] Comment on above: Order Comment: Speci men Type: BLOOD SPECIMENOrdering Facility: [facility] Address: [address] [place] [address] Performed By: #### 2 284-8, 2132-9 ####[facility] LABORATORYIA [id number] [place] [address] [place] Ammonia Plas-sCncon 10-18-19 25 Ammonia (P) [Moles/Vol] 27 umol/L Normal 11-51 [facility] Comment on above: Order Comment: Speci men Type: BLOOD SPECIMENOrdering Facility: [facility] Address: [address] [place] [address] Performed By: #### 1 6362-6 ####GRANT LABORATORYIA [id number] [address] [place] CONSULTon 10-18-2024 CONSULT HNO ID: [id number] Author: NED TERAN APRN.CNP Service: Gastroenterology Author Type: Nurse Practitioner Type: Consults Filed: 10/18/2024 14:07 Note Text: CONSULT: GASTROENTEROLOGY SERVICE SERVICE DATE: 10/18/2024 SERVICE TIME: 10:00 AM REASON FOR CONSULT: intermittent confusion, abdominal pain REQUESTING PHYSICIAN: Dr. Dorman PRIMARY CARE PHYSICIAN: Galindo Miller, NURSING HOME AIDE, NURSING HOME AIDE Subjective Ms. Sarabia is a 84 year old female with PMH afib(eliquis), HTN, DM-type II, and gastric/duodenal ulcers (09/2024) who presented to ED 10/16 for mental status change x 3 days, abdominal pain/distention. GI consulted for evaluation of intermittent confusion, abdominal pain. Patient initially presented to [facility] mid September 19 for altered mental status [...] done at [facility] Mild LA grade A esophagitis Two small [...] Rfl: lidoc (more content not included)... Normal [facility] NURSING PROGon 10-18-2024 NURSING PROG HNO ID: [id number] Author: CHER CALDERON, ELFEGO Service: Nursing Author Type: Registered Nurse Type: Nursing Progress Note Filed: 10/18/2024 01:10 Note Text: Event(s) / Intervention Note: PATIENT NAME: Saeed Sarabia Patient Location: [id number] Room: [id number] The patient was observed having the following problems: Patient restless and confused attempting to pull off EEG leads and trying to get out of bed stating I'm getting out of here , patent offered toileting and accepted, patient assisted to the restroom then assisted back to bed. Continued to try to get up and pulled at lines and was unable to redirect, TRAFFIC OR SYSTEM DISPATCHER notified and came to the bedside. The time of the event occurred at: 0020 The following intervention(s) were initiated: Placed new order for one time dose of IV haldol, patient compliant with administration. After the initiated interventions, the following observation(s) were made: nothing further noted. Will continue to observe and check with patient.. [facility] US ABD RIGHT UPPER QUADRANTo n [...] Kidney: No hydronephrosis. Ascites: None. IMPRESSION: CHOLELITHIASIS. Publicity Expert: ROSS Transcribe Date/Time: Oct 18 2024 5:04P Dictated by : YAKELIN NICOLE MD This examination was interpreted and the report reviewed and electronically signed by: YAKELIN NICOLE MD on Oct 18 2024 5:06PM EST [id number] [facility] ALLIED HEALTHon 10-17-2024 ALLIED HEALTH HNO ID: [id number] Author: GALINDO FROST, aws consultant Service: Radiology Author Type: Heel Slugger Type: Allied Health Filed: 10/17/2024 17:47 Note [...] PATIENT PRESENTS WITH AN IMPLANTABLE OR ATTACHED APARTMENT HOUSE MANAGER: No RADIOLOGY DEPARTMENT: MR; Exam(s) Completed: Head: Routine Brain PERIPHERAL IV DATA: Not applicable SIGNED BY: Galindo Frost, aws consultant October 17, 2024 5:47 PM Normal [facility] CBC panel Auto (Bld)on 10-17 Erythrocyte distribution width (RBC) [Ratio] 13.6 % Normal 11.5-15.0 [facility] Comment on above: Order Comment: Akilah nieto Type: BLOOD SPECIMENOrdering Facility: [facility] Address: [address] [place] [address] Performed By: #### 5 8410-2 ####TOM BEAN LABORATORYCLIA [id number] [address] [place] Hematocrit (Bld) [Volume fraction] 35.9 % Low 36.0-46.0 [facility] Comment on above: Order Comment: Akilah nieto Type: BLOOD SPECIMENOrdering Facility: [facility] Address: [address] [place] [address] Performed By: #### 5 8410-2 ####TOM BEAN LABORATORYCLIA [id number] [place] [address] [place] Hemoglobin (Bld) [Mass/Vol] 11.8 g/dL Normal 11.5-15.5 [facility] Comment on above: Order Comment: Akilah neito Type: BLOOD SPECIMENOrdering Facility: [facility] Address: [address] [place] [address] Performed By: #### 5 8410-2 ####TOM BEAN LABORATORYCLIA [id number] [place] [address] [place] MCH (RBC) [Entitic mass] 30.9 pg Normal 26.0-34.0 [facility] Comment on above: Order Comment: Speci men Type: BLOOD SPECIMENOrdering Facility: [facility] Address: [address] [place] [address] Performed By: #### 5 8410-2 ####[facility] LABORATORYCLIA [id number] [place] [address] [place] MCHC (RBC) [Mass/Vol] 32.9 g/dL Normal 30.5-36.0 [facility] Comment on above: Order Comment: Speci men Type: BLOOD SPECIMENOrdering Facility: [facility] Address: [address] [place] [address] Performed By: #### 5 8410-2 ####[facility] LABORATORYCLIA [id number] [address] [place] MCV (RBC) [Entitic vol] 94.0 fL Normal 80.0-100.0 [facility] Comment on above: Order Comment: Speci men Type: BLOOD SPECIMENOrdering Facility: [facility] Address: [address] [place] [address] Performed By: #### 5 8410-2 ####[facility] LABORATORYCLIA [id number] [place] [address] [place] Nucleated RBC (Bld) [#/Vol] 10*3/uL Normal <0.01 [facility] Comment on above: Order Comment: Speci men Type: BLOOD SPECIMENOrdering Facility: [facility] Address: [address] [place] [address] Performed By: #### 5 8410-2 ####[facility] LABORATORYCLIA [id number] [address] [place] Platelet mean volume (Bld) [Entitic vol] 9.6 fL Normal 9.0-12.7 [facility] Comment on above: Order Comment: Speci men Type: BLOOD SPECIMENOrdering Facility: [facility] Address: [address] [place] [address] Performed By: #### 5 8410-2 ####[facility] LABORATORYCLIA [id number] [place] [id number] [place] Platelets (Bld) [#/Vol] 246 10*3/uL Normal 150-400 [facility] Comment on above: Order Comment: Speci men Type: BLOOD SPECIMENOrdering Facility: [facility] Address: [address] [place] [address] Performed By: #### 5 8410-2 ####T[facility] BE[facility] LABORATORYCLIA [id number] [place] [id number] [place] RBC (Bld) [#/Vol] 3.82 10*6/uL Low 3.90-5.20 [facility] Comment on above: Order Comment: Speci men Type: BLOOD SPECIMENOrdering Facility: [facility] Address: [address] [place] [address] Performed By: #### 5 8410-2 ####TOM BEAN LABORATORYCLIA [id number] [place] [id number] [place] WBC (Bld) [#/Vol] 5.44 10*3/uL Normal 3.70-11.00 [facility] Comment on above: Order Comment: Speci men Type: BLOOD SPECIMENOrdering Facility: [facility] Address: [address] [place] [address] Performed By: #### 5 8410-2 ####TOM BEAN LABORATORYCLIA [id number] [place] [id number] [place] CNCOon 10-17-2024 CNCO Letter Text Normal [facility] CONSULTon 10-17-2024 CONSULT HNO ID: [id number] Author: TYLER MATA MD Service: Neurology General [...] Reflexes: Upper (more content not included)... Normal [facility] Comprehensive metabolic 2000 panelon 10-17-2024 Albumin [Mass/Vol] 3.4 g/dL Low 3.9-4.9 [facility] Comment on above: Order Comment: Speci men Type: BLOOD SPECIMENOrdering Facility: [facility] Address: [address] [place] [address] Performed By: #### 2 4323-8, 6-3, 26387-1, 39697-3 ####TOM BEAN LABORATORYCLIA [id number] [place] [id number] [place] ALP [Catalytic activity/Vol] 46 U/L Normal 34-123 [facility] Comment on above: Order Comment: Speci men Type: BLOOD SPECIMENOrdering Facility: [facility] Address: [address] [place] [address] Performed By: #### 2 4323-8, 6-3, , 13661-7 ####TOM BEAN LABORATORYCLIA [id number] [place] [id number] [place] ALT [Catalytic activity/Vol] 17 U/L Normal 7-38 [facility] Comment on above: Order Comment: Speci men Type: BLOOD SPECIMENOrdering Facility: [facility] Address: [address] [place] [address] Performed By: #### 2 4323-8, 6-3, 98740-7, 93650-3 ####TOM BEAN LABORATORYCLIA [id number] [place] [id number] [place] Anion gap [Moles/Vol] 10 mmol/L Normal 8-15 [facility] Comment on above: Order Comment: Speci men Type: BLOOD SPECIMENOrdering Facility: [facility] Address: [address] [place] [address] Performed By: #### 2 4323-8, 3016-3, 32542-4, 10624-1 ####[facility] LABORATORYCLIA [id number] [place] [address] [place] AST [Catalytic activity/Vol] 22 U/L Normal 13-35 [facility] Comment on above: Order Comment: Speci men Type: BLOOD SPECIMENOrdering Facility: [facility] Address: [address] [place] [address] Performed By: #### 2 4323-8, 6-3, 72983-1, 89816-4 ####TOM BEAN LABORATORYCLIA [id number] [place] [id number] [place] Bilirubin [Mass/Vol] 0.3 mg/dL Normal 0.2-1.3 [facility] Comment on above: Order Comment: Speci men Type: BLOOD SPECIMENOrdering Facility: [facility] Address: [address] [place] [address] Performed By: #### 2 4323-8, 6-3, , 07025-6 ####TOM BEAN LABORATORYCLIA [id number] [place] [id number] [place] Calcium [Mass/Vol] 9.2 mg/dL Normal 8.5-10.2 [facility] Comment on above: Order Comment: Speci men Type: BLOOD SPECIMENOrdering Facility: [facility] Address: [address] [place], [place] [address] Performed By: #### 2 4323-8, 6-3, , 71053-0 ####[facility] LABORATORYCLIA [id number] [place] [address] [place] Chloride [Moles/Vol] 102 mmol/L Normal 98-107 [facility] Comment on above: Order Comment: Speci men Type: BLOOD SPECIMENOrdering Facility: [facility] Address: [address] [place] [address] Performed By: #### 2 4323-8, 6-3, 92433-4, 72658-6 ####[facility] LABORATORYCLIA [id number] [place] [address] [place] CO2 [Moles/Vol] 28 mmol/L Normal 22-30 [facility] Comment on above: Order Comment: Akilah nieto Type: BLOOD SPECIMENOrdering Facility: [facility] Address: [address] [place] [address] Performed By: #### 2 4323-8, 3016-3, 49686-7, 28233-2 ####TOM BEAN LABORATORYCLIA [id number] [place] [id number] [place] Creatinine [Mass/Vol] 0.80 mg/dL Normal 0.58-0.96 [facility] Comment on above: Order Comment: Akilah nieto Type: BLOOD SPECIMENOrdering Facility: [facility] Address: [address] [place] [address] Performed By: #### 2 4323-8, 6-3, , 08353-4 ####TOM BEAN LABORATORYCLIA [id number] [place] [address] [place] Creatinine and Glomerular filtration rate.predicted panel (S/P/Bld) 73 mL/min/1.73m??? Normal >=60 [facility] Comment on above: Order Comment: Akilah nieto Type: BLOOD SPECIMENOrdering Facility: [facility] Address: [address] [place] [address] Result Comment: Roz mated Glomerular Filtration Rate [...] GFR. Performed By: #### 2 4323-8, 6-3, 53571-0, 18633-5 ####TOM BEAN LABORATORYCLIA [id number] [place] [id number] [place] Glucose [Mass/Vol] 103 mg/dL High 74-99 [facility] Comment on above: Order Comment: Musanae nieto Type: BLOOD SPECIMENOrdering Facility: [facility] Address: [address] [place] [id number] Result Comment: The [place] [employer] (ADA) provides guidance for cutoff [...] Standards of Medical Care in Diabetes 2016, [place] [employer]. Diabetes Care. 2016.39(Suppl 1). Performed By: #### 2 4323-8, 6-3, , 28759-1 ####GRANT LABORATORYCLIA [id number] [place] [id number] [place] Potassium [Moles/Vol] 4.4 mmol/L Normal 3.7-5.1 [facility] Comment on above: Order Comment: Akilah gerson Type: BLOOD SPECIMENOrdering Facility: [facility] Address: [address] [place], [place] [address] Performed By: #### 2 4323-8, 6-3, , ####GRANT LABORATORYCLIA [id number] [place] [id number] [place] Protein [Mass/Vol] 5.8 g/dL Low 6.3-8.0 [facility] Comment on above: Order Comment: Akilah gerson Type: BLOOD SPECIMENOrdering Facility: [facility] Address: [address] [place] [address] Performed By: #### 2 4323-8, 6-3, , ####GRANT LABORATORYCLIA [id number] [place] [id number] [place] Sodium [Moles/Vol] 140 mmol/L Normal 136-144 [facility] Comment on above: Order Comment: Speci men Type: BLOOD SPECIMENOrdering Facility: [facility] Address: [address] [place] [address] Performed By: #### 2 4323-8, 6-3, 74657-2, 18629-3 ####GRANT LABORATORYCLIA [id number] [place] [address] [place] Urea nitrogen [Mass/Vol] 10 mg/dL Normal 7-21 [facility] Comment on above: Order Comment: Speci men Type: BLOOD SPECIMENOrdering Facility: [facility] Address: [address] [place] [address] Performed By: #### 2 4323-8, 6-3, , 89113-9 ####GRANT LABORATORYCLIA [id number] [place] [id number] [place] Iron and Iron binding capaci ty panelon 10-17-2024 Iron [Mass/Vol] 74 ug/dL Normal 41-186 [facility] Comment on above: Order Comment: Speci men Type: BLOOD SPECIMENOrdering Facility: [facility] Address: [address] [place] [address] Performed By: #### 2 4323-8, 3015-3, , 55839-4 ####GRANT LABORATORYCLIA [id number] [place] [id number] [place] Iron binding capacity [Mass/Vol] 235 ug/dL Normal 232-386 [facility] Comment on above: Order Comment: Speci men Type: BLOOD SPECIMENOrdering Facility: [facility] Address: [address] [place] [address] Performed By: #### 2 4323-8, 6-3, 46428-4, 58026-6 ####GRANT LABORATORYCLIA [id number] [place] [id number] [place] Iron/TIBC [Molar ratio] 31.5 % Normal 20.0-55.0 [facility] Comment on above: Order Comment: Speci men Type: BLOOD SPECIMENOrdering Facility: [facility] Address: [address] [place], [place] [address] Performed By: #### 2 4323-8, 3016-3, 31394-3, 09341-4 ####TOM BEAN LABORATORYCLIA [id number] [place] [id number] [place] MRI BRAIN WO [...] process or mass. Chronic changes as described. Publicity Expert: PSCB Transcribe Date/Time: Oct 17 2024 6:11P Dictated by : ADINA AGEE MD This examination was interpreted and the report reviewed and electronically signed by: GEOFFREY ZAYAS MD on Oct 17 2024 6:44PM EST [id number] Normal [facility]17 Magnesium [Mass/Vol] 2.0 mg/dL Normal 1.7-2.3 [facility] Comment on above: Order Comment: Speci men Type: BLOOD SPECIMENOrdering Facility: [facility] Address: [place] [address] Performed By: #### 2 4323-8, 3016-3, 69281-4, 20799-4 ####TOM BEAN LABORATORYCLIA [id number] OF [facility] NURSING PROGon 10-17-2024 NURSING PROG HNO ID: [id number] Author: RED COVINGTON, ELFEGO Service: Nursing Author [...] no other needs at this time. Normal [facility] NUTRITIONon 10-17-2024 NUTRITION HNO ID: [id number] Author: PATIENCE COVINGTON RD Service: NST-Nutrition Support [...] October 17, 2024 TIME: 12:34 PM Normal [facility] PORPHOBILINOGEN (PBG), URINE , SCREENon 10-17-2024 PORPHOBILINOGEN (PBG), URINE, SCREEN Negative Normal Negative [facility] Comment on above: Order Comment: Speci men Type: URINE SPECIMENOrdering Facility: [facility] Address: [address] [place] [address] Result Comment: This test was developed, and its performance characteristics determined by the [facility] Department of Pathology and Laboratory Medicine. It has not been cleared or approved by the FDA. The [facility] Department of Pathology and Laboratory Medicine is regulated under CLIA as qualified to perform high-complexity testing. This test is used for clinical purposes. It should not be regarded as investigational or for research. Performed By: #### U PBG ####[facility] LABCLIA [id number] [place] [address] [place] TOXICOLOGY SCREEN, ROUTINE U RINEon 10-17-2024 Amphetamines Confirm (U) [Mass/Vol] Negative Normal Negative [facility] Comment on above: Order Comment: Speci men Type: URINE SPECIMENOrdering Facility: [facility] Address: [address] [place] [address] Result Comment: Cuto ff threshold at 1000 ng/mL. Performed By: #### U TOX2 ####[facility] LABORATORYCLIA [id number] [place] [address] [place] BARBITURATES, URINE Negative Normal Negative [facility] Comment on above: Order Comment: Speci men Type: URINE SPECIMENOrdering Facility: [facility] Address: [address] [place] [address] Result Comment: Cuto ff threshold at 200 ng/mL. Performed By: #### U TOX2 ####[facility] LABORATORYCLIA [id number] [place] [address] [place] BENZODIAZEPINES, UR Negative Normal Negative [facility] Comment on above: Order Comment: Speci men Type: URINE SPECIMENOrdering Facility: [facility] Address: [address] [place] [address] Result Comment: Cuto ff threshold at 200 ng/mL. Performed By: #### U TOX2 ####[facility] LABORATORYCLIA [id number] [place] [address] [place] Cannabinoids Screen Ql (U) Negative Normal Negative [facility] Comment on above: Order Comment: Speci men Type: URINE SPECIMENOrdering Facility: [facility] Address: [address] [place] [address] Result Comment: Cuto ff threshold at 50 ng/mL. Performed By: #### U TOX2 ####[facility] LABORATORYCLIA [id number] [place] [address] [place] Cocaine Ql (U) Negative Normal Negative [facility] Comment on above: Order Comment: Speci men Type: URINE SPECIMENOrdering Facility: [facility] Address: [address] [place] [address] Result Comment: Cuto ff threshold at 300 ng/mL. Performed By: #### U TOX2 ####[facility] LABORATORYCLIA [id number] [address] [place] Ethanol (U) [Mass/Vol] <11 Normal <11 [facility] Comment on above: Order Comment: Speci men Type: URINE SPECIMENOrdering Facility: [facility] Address: [address] [place] [address] Performed By: #### U TOX2 ####[facility] LABORATORYCLIA [id number] [address] [place] Opiates Screen Ql (U) Negative Normal Negative [facility] Comment on above: Order Comment: Speci men Type: URINE SPECIMENOrdering Facility: [facility] Address: [address] [place] [address] Result Comment: Cuto ff threshold at 300 ng/mL. Performed By: #### U TOX2 ####[facility] LABORATORYCLIA [id number] [address] [place] oxyCODONE cutoff Screen (U) [Mass/Vol] Negative Normal Negative [facility] Comment on above: Order Comment: Speci men Type: URINE SPECIMENOrdering Facility: [facility] Address: [address] [place] [address] Result Comment: Cuto ff threshold at 100 ng/mL. Performed By: #### U TOX2 ####T[facility] BE[facility] LABORATORYCLIA [id number] [place] [id number] [facility] Phencyclidine Ql (U) Negative Normal Negative [facility] Comment on above: Order Comment: Speci men Type: URINE SPECIMENOrdering Facility: [facility] Address: [address] [place] [address] Result Comment: Cuto ff threshold at 25 ng/mL. Performed By: #### U TOX2 ####[facility] BE[facility] LABORATORYCLIA [id number] [address] [place] TSH SerPl-aCncon 10-17-2024 TSH Qn 0.103 m[IU]/L Low 0.270-4.200 [facility] Comment on above: Order Comment: Speci men Type: BLOOD SPECIMENOrdering Facility: [facility] Address: [address] [place] [address] Performed By: #### 2 4323-8, 3016-3, 91218-5, 55390-2 ####[facility] BE[facility] LABORATORYCLIA [id number] [place] [id number] [facility] [place] ALLIED HEALTHon 10-16-2024 ALLIED HEALTH HNO ID: [id number] Author: WAYNE BRANHAM RDMS Service: Radiology Author Type: Water Trainer Type: Allied Health Filed: 10/16/2024 16:40 Note [...] PATIENT PRESENTS WITH AN IMPLANTABLE OR ATTACHED APARTMENT HOUSE MANAGER: No RADIOLOGY DEPARTMENT: Ultrasound PERIPHERAL IV DATA: Not applicable SIGNED BY: Wayne Branham RDMS October 16, 2024 4:[address] [facility] HNO ID: [id number] Author: DULCE BURTON CT Service: Radiology Author Type: Heel Slugger Type: Allied Health Filed: 10/16/2024 15:37 Note [...] PATIENT PRESENTS WITH AN IMPLANTABLE OR ATTACHED APARTMENT HOUSE MANAGER: No ALLERGIES: Reviewed and unchanged CONTRAST ALLERGY: [...] DATE: October 16, 2024 TIME: 3:36 PM [facility] ALLIED HEALTH HNO ID: [id number] Author: COLBY DE JESUS RT(R) Service: Radiology [...] PATIENT PRESENTS WITH AN IMPLANTABLE OR ATTACHED APARTMENT HOUSE MANAGER: No RADIOLOGY DEPARTMENT: General X-ray: Exam(s) Completed: Chest X-Ray PERIPHERAL IV DATA: Not applicable SIGNED BY: RT Mariana(R) October 16, 2024 2:19 PM [facility] CBC W Auto Differential pane l (Bld)on 10-16-2024 Basophils (Bld) [#/Vol] 10*3/uL Normal <0.11 [facility] Comment on above: Order Comment: Speci men Type: BLOOD SPECIMENOrdering Facility: [facility] Address: [address] [place] [address] Performed By: #### 5 7021-8 ####[facility] BE[facility] LABORATORYCLIA [id number] [place] [address] [place] Basophils/100 WBC (Bld) 0.1 % Normal [facility] Comment on above: Order Comment: Speci men Type: BLOOD SPECIMENOrdering Facility: [facility] Address: [address] [place] [address] Performed By: #### 5 7021-8 ####[facility] BE[facility] LABORATORYCLIA [id number] [place] [address] [place] Differential cell count method Nom (Bld) Auto Normal [facility] Comment on above: Order Comment: Speci men Type: BLOOD SPECIMENOrdering Facility: [facility] Address: [address] [place] [address] Performed By: #### 5 7021-8 ####[facility] LABORATORYCLIA [id number] [address] [place] Eosinophils (Bld) [#/Vol] 0.45 10*3/uL Normal <0.46 [facility] Comment on above: Order Comment: Speci men Type: BLOOD SPECIMENOrdering Facility: [facility] Address: [address] [place] [address] Performed By: #### 5 7021-8 ####[facility] LABORATORYCLIA [id number] Eosinophils/100 WBC (Bld) 5.5 % Normal [facility] Comment on above: Order Comment: Speci men Type: BLOOD SPECIMENOrdering Facility: [facility] Address: [address] [place] [address] Performed By: #### 5 7021-8 ####[facility] LABORATORYCLIA [id number] [address] [place] Erythrocyte distribution width (RBC) [Ratio] 13.6 % Normal 11.5-15.0 [facility] Comment on above: Order Comment: Speci men Type: BLOOD SPECIMENOrdering Facility: [facility] Address: [address] [place] [address] Performed By: #### 5 7021-8 ####GRANT LABORATORYCLIA [id number] [place] [id number] [facility] [place] Hematocrit (Bld) [Volume fraction] 41.4 % Normal 36.0-46.0 [facility] Comment on above: Order Comment: Speci men Type: BLOOD SPECIMENOrdering Facility: [facility] Address: [address] [place] [address] Performed By: #### 5 7021-8 ####[facility] LABORATORYCLIA [id number] [place] [address] [place] Hemoglobin (Bld) [Mass/Vol] 13.4 g/dL Normal 11.5-15.5 [facility] Comment on above: Order Comment: Speci men Type: BLOOD SPECIMENOrdering Facility: [facility] Address: [address] [place] [address] Performed By: #### 5 7021-8 ####GRANT LABORATORYCLIA [id number] [place] [address] [place] Immature granulocytes (Bld) [#/Vol] 0.03 10*3/uL Normal <0.10 [facility] Comment on above: Order Comment: Speci men Type: BLOOD SPECIMENOrdering Facility: [facility] Address: [address] [place] [address] Performed By: #### 5 7021-8 ####GRANT LABORATORYCLIA [id number] [address] [place] Immature granulocytes/100 WBC (Bld) 0.4 % Normal [facility] Comment on above: Order Comment: Speci men Type: BLOOD SPECIMENOrdering Facility: [facility] Address: [address] [place] [address] Performed By: #### 5 7021-8 ####GRANT LABORATORYCLIA [id number] [place] [address] [place] Lymphocytes (Bld) [#/Vol] 3.33 10*3/uL Normal 1.00-4.00 [facility] Comment on above: Order Comment: Speci men Type: BLOOD SPECIMENOrdering Facility: [facility] Address: [address] [place] [address] Performed By: #### 5 7021-8 ####GRANT LABORATORYCLIA [id number] [place] [id number] [place] Lymphocytes/100 WBC (Bld) 40.6 % Normal [facility] Comment on above: Order Comment: Speci men Type: BLOOD SPECIMENOrdering Facility: [facility] Address: [address] [place] [address] Performed By: #### 5 7021-8 ####GRANT LABORATORYCLIA [id number] [place] [address] [place] MCH (RBC) [Entitic mass] 29.9 pg Normal 26.0-34.0 [facility] Comment on above: Order Comment: Speci men Type: BLOOD SPECIMENOrdering Facility: [facility] Address: [address] [place] [address] Performed By: #### 5 7021-8 ####GRANT LABORATORYCLIA [id number] [place] [id number] [place] MCHC (RBC) [Mass/Vol] 32.4 g/dL Normal 30.5-36.0 [facility] Comment on above: Order Comment: Speci men Type: BLOOD SPECIMENOrdering Facility: [facility] Address: [address] [place] [address] Performed By: #### 5 7021-8 ####[facility] LABORATORYCLIA [id number] [address] [place] MCV (RBC) [Entitic vol] 92.4 fL Normal 80.0-100.0 [facility] Comment on above: Order Comment: Speci men Type: BLOOD SPECIMENOrdering Facility: [facility] Address: [address] [place] [address] Performed By: #### 5 7021-8 ####[facility] LABORATORYCLIA [id number] [address] [place] Monocytes (Bld) [#/Vol] 0.50 10*3/uL Normal <0.87 [facility] Comment on above: Order Comment: Speci men Type: BLOOD SPECIMENOrdering Facility: [facility] Address: [address] [place] [address] Performed By: #### 5 7021-8 ####GRANT LABORATORYCLIA [id number] [address] Monocytes/100 WBC (Bld) 6.1 % Normal [facility] Comment on above: Order Comment: Speci men Type: BLOOD SPECIMENOrdering Facility: [facility] Address: [address] [place] [address] Performed By: #### 5 7021-8 ####GRANT LABORATORYCLIA [id number] [place] [address] [place] Neutrophils (Bld) [#/Vol] 3.89 10*3/uL Normal 1.45-7.50 [facility] Comment on above: Order Comment: Speci men Type: BLOOD SPECIMENOrdering Facility: [facility] Address: [address] [place] [address] Performed By: #### 5 7021-8 ####GRANT LABORATORYCLIA [id number] [place] [address] [place] Neutrophils/100 WBC (Bld) 47.3 % Normal [facility] Comment on above: Order Comment: Speci men Type: BLOOD SPECIMENOrdering Facility: [facility] Address: [address] [place] [address] Performed By: #### 5 7021-8 ####GRANT LABORATORYCLIA [id number] [place] [address] [place] Nucleated RBC (Bld) [#/Vol] 10*3/uL Normal <0.01 [facility] Comment on above: Order Comment: Speci men Type: BLOOD SPECIMENOrdering Facility: [facility] Address: [address] [place] [address] Performed By: #### 5 7021-8 ####GRANT LABORATORYCLIA [id number] [place] [address] [place] Nucleated RBC/100 WBC (Bld) [Ratio] 0.0 /100 WBC Normal [facility] Comment on above: Order Comment: Speci men Type: BLOOD SPECIMENOrdering Facility: [facility] Address: [address] [place] [address] Performed By: #### 5 7021-8 ####GRANT LABORATORYCLIA [id number] [place] [id number] [place] Platelet mean volume (Bld) [Entitic vol] 9.9 fL Normal 9.0-12.7 [facility] Comment on above: Order Comment: Speci men Type: BLOOD SPECIMENOrdering Facility: [facility] Address: [address] [place] [address] Performed By: #### 5 7021-8 ####T[facility] LABORATORYCLIA [id number] [place] [id number] [place] [facility] [place] Platelets (Bld) [#/Vol] 288 10*3/uL Normal 150-400 [facility] Comment on above: Order Comment: Speci men Type: BLOOD SPECIMENOrdering Facility: [facility] Address: [address] [place] [address] Performed By: #### 5 7021-8 ####TOM BEAN LABORATORYCLIA [id number] [place] [id number] [place] [facility] [place] RBC (Bld) [#/Vol] 4.48 10*6/uL Normal 3.90-5.20 [facility] Comment on above: Order Comment: Speci men Type: BLOOD SPECIMENOrdering Facility: [facility] Address: [address] [place] [address] Performed By: #### 5 7021-8 ####TOM BEAN LABORATORYCLIA [id number] [place] [id number] [facility] [place] WBC (Bld) [#/Vol] 8.21 10*3/uL Normal 3.70-11.00 [facility] Comment on above: Order Comment: Speci men Type: BLOOD SPECIMENOrdering Facility: [facility] Address: [address] [place] [address] Performed By: #### 5 7021-8 ####TOM BEAN LABORATORYCLIA [id number] [place] [id number] [facility] CNOVon 10-16-2024 CNOV Office Visit (EXPNOL ) SAEED SARABIA ([id number]) 1940 F Date Time Provider Department 10/16/24 11:55 AM BRIANA SCHWARZ EXPNOL During your visit today, we recorded the following information about you: Temperature Pulse Respiration Blood pressure 99.3 degrees 76/minute 18/minute 156/61 Briana Schwazr PA-C 10/16/2024 12:57 PM Signed [facility] October 16, 2024 Saeed Sarabia 1940 Patient presents with: Abdominal Pain: X6 wks on and off, change in mental status x3 days Was recently treated for uti getting better then abd pain and admitted to [place] and then transferred to [place] and admitted for a week with gall [...] to ER due to the limitations of [facility] testing capabilities. The patient verbalized understanding and denies questions. Patient transported to Emergency Department by who refused transport Abd exam with lower abd pain no guarding no masses no rebound. The patient refused transfer to ER by ambulance. The patient was accompanied by and states that they feel safe to self transport. Advised of possible risks. Report called Briana Schwarz PA-C [facility] Referring Provider: SELF [200] Allergies As of [...] Status:Closed by BRIANA SCHWARZ on 10/16/24 Normal [facility] CT ABD/PEL W IVCONon 025 CT ABD/PEL [...] Recommendation: US FEMALE PELVIS NON-OB NON TORSION ([id number]) Time Frame: At the discretion of the clinical team. COMMUNICATION: Results will be communicated with the ordering provider via [employer] staff message or phone message by [employer] within 2 business days of report finalization. --END OF FINDING-- Publicity Expert: ROSS Transcribe Date/Time: Oct 16 2024 3:53P Dictated by : YUKI FRAGOSO MD This examination was interpreted and the report reviewed and electronically signed by: YUKI FRAGOSO MD on Oct 16 2024 4:13PM EST [id number] ACTIONABLE Invalid Interpretation Code [facility] Comprehensive metabolic 2000 panelon 10-16-2024 Albumin [Mass/Vol] 4.1 g/dL Normal 3.9-4.9 [facility] Comment on above: Order Comment: Speci men Type: BLOOD SPECIMENOrdering Facility: [facility] Address: [address] [place] [address] Performed By: #### 2 4323-8, ####TOM BEAN LABORATORYCLIA [id number] [place] [address] [place] ALP [Catalytic activity/Vol] 56 U/L Normal 34-123 [facility] Comment on above: Order Comment: Speci men Type: BLOOD SPECIMENOrdering Facility: [facility] Address: [address] [place] [address] Performed By: #### 2 4328, ####TOM BEAN LABORATORYCLIA [id number] [place] [id number] [place] ALT [Catalytic activity/Vol] 17 U/L Normal 7-38 [facility] Comment on above: Order Comment: Speci men Type: BLOOD SPECIMENOrdering Facility: [facility] Address: [address] [place] [address] Performed By: #### 2 4323-8, ####TOM BEAN LABORATORYCLIA [id number] [place] [address] [place] Anion gap [Moles/Vol] 22 mmol/L High 8-15 [facility] Comment on above: Order Comment: Speci men Type: BLOOD SPECIMENOrdering Facility: [facility] Address: [address] [place] [address] Performed By: #### 2 4322-8, ####GRANT LABORATORYCLIA [id number] [place] [id number] [place] AST [Catalytic activity/Vol] 24 U/L Normal 13-35 [facility] Comment on above: Order Comment: Speci men Type: BLOOD SPECIMENOrdering Facility: [facility] Address: [address] [place] [address] Performed By: #### 2 8, ####GRANT LABORATORYCLIA [id number] [place] [id number] [place] Bilirubin [Mass/Vol] 0.4 mg/dL Normal 0.2-1.3 [facility] Comment on above: Order Comment: Speci men Type: BLOOD SPECIMENOrdering Facility: [facility] Address: [address] [place] [address] Performed By: #### 2 4323-05, ####GRANT LABORATORYCLIA [id number] [place] [address] [place] Calcium [Mass/Vol] 9.7 mg/dL Normal 8.5-10.2 [facility] Comment on above: Order Comment: Speci men Type: BLOOD SPECIMENOrdering Facility: [facility] Address: [address] [place] [address] Performed By: #### 2 8, ####GRANT LABORATORYCLIA [id number] [place] [id number] [place] Chloride [Moles/Vol] 96 mmol/L Low 98-107 [facility] Comment on above: Order Comment: Speci men Type: BLOOD SPECIMENOrdering Facility: [facility] Address: [address] [place] [address] Performed By: #### 2 4322-8, ####GRANT LABORATORYCLIA [id number] [place] [id number] [place] CO2 [Moles/Vol] 19 mmol/L Low 22-30 [facility] Comment on above: Order Comment: Speci men Type: BLOOD SPECIMENOrdering Facility: [facility] Address: [address] [place] [address] Performed By: #### 2 4323-8, ####[facility] LABORATORYCLIA [id number] [place] [id number] [place] Creatinine [Mass/Vol] 0.83 mg/dL Normal 0.58-0.96 [facility] Comment on above: Order Comment: Specnae men Type: BLOOD SPECIMENOrdering Facility: [facility] Address: [address] [place] [address] Performed By: #### 2 4323-8, ####[facility] LABORATORYCLIA [id number] [place] [id number] [place] [facility] Creatinine and Glomerular filtration rate.predicted panel (S/P/Bld) 70 mL/min/1.73m??? Normal >=60 [facility] Comment on above: Order Comment: Akilah nieto Type: BLOOD SPECIMENOrdering Facility: [facility] Address: [address] [place] [address] Result Comment: Roz mated Glomerular Filtration Rate [...] Performed By: #### 2 4323-8, ####GRANT LABORATORYCLIA [id number] [place] [id number] [place] Glucose [Mass/Vol] 127 mg/dL High 74-99 [facility] Comment on above: Order Comment: Akilah gerson Type: BLOOD SPECIMENOrdering Facility: [facility] Address: [address] [place] [address] Result Comment: The [place] [employer] (ADA) provides guidance for cutoff [...] Standards of Medical Care in Diabetes 2016, [place] [employer]. Diabetes Care. 2016.39(Suppl 1). Performed By: #### 2 4323-8, ####GRANT LABORATORYCLIA [id number] [place] [address] [place] Potassium [Moles/Vol] 4.4 mmol/L Normal 3.7-5.1 [facility] Comment on above: Order Comment: Speci men Type: BLOOD SPECIMENOrdering Facility: [facility] Address: [address] [place] [address] Performed By: #### 2 43212-14, ####[facility] LABORATORYCLIA [id number] [place] [id number] [place] Protein [Mass/Vol] 7.3 g/dL Normal 6.3-8.0 [facility] Comment on above: Order Comment: Speci men Type: BLOOD SPECIMENOrdering Facility: [facility] Address: [address] [place] [address] Performed By: #### 2 4323, ####GRANT LABORATORYCLIA [id number] [place] [id number] [place] Sodium [Moles/Vol] 137 mmol/L Normal 136-144 [facility] Comment on above: Order Comment: Speci men Type: BLOOD SPECIMENOrdering Facility: [facility] Address: [address] [place] [address] Performed By: #### 2 43212-14, ####[facility] LABORATORYCLIA [id number] [place] [address] [place] Urea nitrogen [Mass/Vol] 12 mg/dL Normal 7-21 [facility] Comment on above: Order Comment: Speci men Type: BLOOD SPECIMENOrdering Facility: [facility] Address: [address] [place] [address] Performed By: #### 2 4323-8, 86480-9 ####GRANT LABORATORYCLIA [id number] [place] [address] [place] ECG COMPLETEon 10-16-2024 ECG COMPLETE Ventricular Rate : 7 6 BPM Atrial Rate : 77 BPM P-R Interval : 113 ms QRS Duration : 146 ms Q-T Interval : 413 ms QTC Calculation(Bazett) : 465 ms Calculated P [place] : 97 degrees Calculated R [place] : -42 degrees Calculated T [place] : 100 degrees Sinus rhythm Atrial premature complex Borderline short NH interval Left bundle branch block Abnormal ECG No Stemi Confirmed by JASON SAGASTUME MD ([id number]) on 10/16/2024 4:13:30 PM NAME : SAEED SARABIA PID : [id number] : 1940 Gender : Female Race : ORD : [id number] Procedure Date : Oct 16 2024 13:36:17 Edit Date : Oct 16 2024 16:13:35 Diagnosis: Sinus rhythm Atrial premature complex Borderline short NH interval Left bundle branch block Abnormal ECG No Stemi Confirmed by JASON SAGASTUME MD ([id number]) on 10/16/2024 4:13:30 PM Test Reason : Chest Pain Location : 402 : FVED [id number] Overread By : JASON SAGASTUME MD Edited By : JASON SAGASTUME MD Referred By : , Acquired by : [id number], [facility] ED NOTEon 10-16-2024 ED NOTE HNO ID: [id number] Author: TRUMAN SUBRAMANIAN RN Service: ? Author Type: Registered Nurse Type: ED Notes Filed: 10/16/2024 13:29 Note Text: Bed: 08-ED Expected date: 10/16/24 Expected time: 12:55 PM Means of arrival: [place] [facility] Comments: 84F confusion x 3 days per spouse From AANDox2 169/96, 88, 96%, BGL 135 +IV prenotification [facility] ED PROV NOTEon 10-16-2024 ED PROV NOTE HNO ID: [id number] Author: EVER KEENE DO Service: ? Author [...] review her [facility] note which did show that she had an MRI scan of her head which did show chronic microvascular changes with nothing acute. Patient will be admitted to the CDU for further management of her altered mentation. 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 Abdominal Pain: Distention noted problems with abdominal pain and pressure for some time. Sent By Md: [facility] pt to ED for further eval HPI Patient is an 84-year-old female who presents with altered mental status. Brought in by family. Increasing confusion over the past few days. Patient was recently hospitalized in [place] for abdominal pain, confusion. Encephalopathy of unclear [...] in by . Patient was admitted to [place] in September for similar presentation, no source [...] At this time will obtain CT to [facility] (more content not included)... Normal [facility] ED PROV NOTE HNO ID: [id number] Author: BRIANNA RASMUSSEN DO Service: Emergency Medicine Author Type: Physician Type: ED Provider Notes Filed: 10/16/2024 12:53 Note Text: ED E-CONSULT PROVIDER TO PROVIDER NOTE SERVICE DATE: 10/16/2024 PATIENT [facility]ATION[facility] SERVICE TIME: 12:49 PM REQUESTING PROVIDER: Briana Schwarz PA-C REQUESTING LOCATION: [facility] CONSULTING SERVICE: Emergency Services I am being asked to provide an opinion on management for Saeed who is a 84 year old female. ASSESSMENT Recent treatment for UTI end of August Admitted to [facility] in September Increased confusion x 3 days, disoriented No N/V + lower abd pain From chart review from OSH admission: Hospital course: 83yoF who was admitted from [place] to [facility] on 09/17 for concern for cholecystitis. Patient was seen at [place] ED for abdominal pain and AMS. CT head was unremarkable but CT Abd showed signs concerning for cholecystitis with the presence of cholelithiasis. She was transferred to [facility] with General Surgery evaluation. HIDA was [...] the requesting team. The patient or patient's jewelry sales representative consented to e-consultation. SIGNATURE: Brianna Rasmussen DO PATIENT NAME: Saeed Sarabia DATE: October 16, 2024 TIME: 12:49 PM I have communicated my name and active licensure. The patient's identity and physical location were verified at the time of this visit. Either the patient or their legal jewelry sales representative has been informed of the risks and benefits of -- and alternatives to -- treatment through a remote evaluation and consents to proceed with the evaluation remotely. BRIANNA RASMUSSEN 10/16/24 1253 Normal [facility] HISTORY PHYSICALon HISTORY PHYSICAL HNO ID: [id number] Author: SUSAN SPRAGUE PA-C Service: General Internal Medicine Author Type: Physician Senior Functional Analyst Type: H&P Filed: 10/17/2024 05:17 Note Text: Department of Internal Medicine HISTORY AND PHYSICAL EXAMINATION SERVICE DATE: 10/16/2024 SERVICE TIME: 8:20 PM PRIMARY CARE PHYSICIAN: Galindo Miller, NURSING HOME AIDE, NURSING HOME AIDE CONTACT COVERAGE: See Treatment Team and contact assigned BLAYNE. If no BLAYNE assigned: -5N/5W/5PAV/6th floor/2S or ED Hold, [facility] Team A: [phone] -[facility] or [facility], [facility] Team B: [phone] Subjective CHIEF COMPLAINT: Altered Mental Status HPI: [...] in this time. She was admitted to [facility] on 09/17 for concern for cholecystitis [...] Abdomen is (more content not included)... Normal [facility] Magnesium SerPl-mCncon 10-16 Magnesium [Mass/Vol] 1.6 mg/dL Low 1.7-2.3 [facility] Comment on above: Order Comment: Speci men Type: BLOOD SPECIMENOrdering Facility: [facility] Address: [address] [place] [address] Performed By: #### 2 4323-8, 24706-2 ####T[facility] BE[facility] LABORATORYCLIA [id number] [place] [address] [place] US DVT LOWER RTon 10-16-2024 US DVT LOWER RT * * *Final Report* * * DATE OF EXAM: Oct 16 2024 4:47PM [facility] 1007 - US DVT LOWER RT [...] imaged segments of the right lower extremity. Publicity Expert: PSCB Transcribe Date/Time: Oct 16 2024 4:56P Dictated by : CLARY HUERTAS MD This examination was interpreted and the report reviewed and electronically signed by: CLARY HUERTAS MD on Oct 16 2024 5:07PM EST [id number] Normal [facility] Urinalysis complete panel (U )on 10-16-2024 Bilirubin Ql (U) Negative Normal Negative [facility] Comment on above: Order Comment: Speci men Type: URINE SPECIMENOrdering Facility: [facility] Address: [address] [place] [address] Performed By: #### 2 4356-8 ####TOM BEAN LABORATORYCLIA [id number] [place] [address] [place] Clarity (Unsp spec) Clear Normal Clear [facility] Comment on above: Order Comment: Speci men Type: URINE SPECIMENOrdering Facility: [facility] Address: [address] [place] [address] Performed By: #### 2 4356-8 ####T[facility] BE[facility] LABORATORYCLIA [id number] [place] [address] [place] Color (U) Light Yellow Normal Yellow [facility] Comment on above: Order Comment: Speci men Type: URINE SPECIMENOrdering Facility: [facility] Address: [address] [place] [address] Performed By: #### 2 4356-8 ####[facility] LABORATORYCLIA [id number] [address] [place] Epithelial cells LM.HPF (Urine sed) [#/Area] Few Normal [facility] Comment on above: Order Comment: Speci men Type: URINE SPECIMENOrdering Facility: [facility] Address: [address] [place] [address] Performed By: #### 2 4356-8 ####GRANT LABORATORYCLIA [id number] [place] [address] [place] Glucose Test strip (U) [Mass/Vol] Negative Normal Trace, Negative [facility] Comment on above: Order Comment: Speci men Type: URINE SPECIMENOrdering Facility: [facility] Address: [address] [place] [address] Performed By: #### 2 4356-8 ####GRANT LABORATORYCLIA [id number] [address] [place] Hemoglobin Ql (U) Negative Normal Negative, Trace [facility] Comment on above: Order Comment: Speci men Type: URINE SPECIMENOrdering Facility: [facility] Address: [address] [place] [address] Performed By: #### 2 4356-8 ####[facility] LABORATORYCLIA [id number] [place] [address] [place] Hyaline casts (Urine sed) [#/Area] 1-3 /LPF Abnormal 0 /LPF [facility] Comment on above: Order Comment: Speci men Type: URINE SPECIMENOrdering Facility: [facility] Address: [address] [place] [address] Performed By: #### 2 4356-8 ####GRANT LABORATORYCLIA [id number] [address] [place] Ketones Ql (U) Negative Normal Negative, Trace [facility] Comment on above: Order Comment: Speci men Type: URINE SPECIMENOrdering Facility: [facility] Address: [address] [place] [address] Performed By: #### 2 4356-8 ####[facility] LABORATORYCLIA [id number] [address] [place] Leukocyte esterase Test strip Ql (U) Negative Normal Negative, 25 Oh/uL [facility] Comment on above: Order Comment: Speci men Type: URINE SPECIMENOrdering Facility: [facility] Address: [address] [place] [address] Performed By: #### 2 4356-8 ####[facility] LABORATORYCLIA [id number] [place] [address] [place] Nitrite Ql (U) Negative Normal Negative [facility] Comment on above: Order Comment: Speci men Type: URINE SPECIMENOrdering Facility: [facility] Address: [address] [place] [address] Performed By: #### 2 4356-8 ####[facility] LABORATORYCLIA [id number] [place] [address] [place] pH (U) 6.0 [pH] Normal 5.0-8.0 [facility] Comment on above: Order Comment: Speci men Type: URINE SPECIMENOrdering Facility: [facility] Address: [address] [place] [address] Performed By: #### 2 4356-8 ####[facility] LABORATORYCLIA [id number] [place] [address] [place] Protein (U) [Mass/Vol] Negative Normal Trace , Negative [facility] Comment on above: Order Comment: Speci men Type: URINE SPECIMENOrdering Facility: [facility] Address: [address] [place] [address] Performed By: #### 2 4356-8 ####[facility] LABORATORYCLIA [id number] [place] [address] [place] RBC LM.HPF (Urine sed) [#/Area] 0-3 /HPF Normal 0-3 /HPF [facility] Comment on above: Order Comment: Speci men Type: URINE SPECIMENOrdering Facility: [facility] Address: [address] [place] [address] Performed By: #### 2 4356-8 ####[facility] LABORATORYCLIA [id number] [address] STATES OF [facility] Specific gravity (U) [Rel density] 1.010 Normal 1.005-1.030 [facility] Comment on above: Order Comment: Speci men Type: URINE SPECIMENOrdering Facility: [facility] Address: [address] [place] [address] Performed By: #### 2 4356-8 ####[facility] LABORATORYCLIA [id number] [place] [address] [place] Urobilinogen Ql (U) Normal Normal Normal [facility] Comment on above: Order Comment: Speci men Type: URINE SPECIMENOrdering Facility: [facility] Address: [address] [place] [address] Performed By: #### 2 4356-8 ####[facility]PITALIA [id number] [place] [address] [place] WBC LM.HPF (Urine sed) [#/Area] 0-5 /HPF Normal 0-5 /HPF [facility] Comment on above: Order Comment: Speci men Type: URINE SPECIMENOrdering Facility: [facility] Address: [address] [place] [address] Performed By: #### 2 4356-8 ####[facility] LABORATORYCLIA [id number] [place] [address] [place] XR CHEST 1V [...] PATCHY BIBASILAR ATELECTASIS/INFILTRATE , NEW SINCE 03/28/2022 Publicity Expert: ROSS Transcribe Date/Time: Oct 16 2024 3:06P Dictated by : YAKELIN NICOLE MD This examination was interpreted and the report reviewed and electronically signed by: YAKELIN NICOLE MD on Oct 16 2024 3:06PM EST [id number] [facility] 30on 09-21-2024 30 The patient is [...] and maintained or improved Outcome: Progressing Normal [facility] 30 Daily Case Managemen t Update [...] further OTM needs identified at this time. [facility] will continue to follow patient and assist [...] PT (with focus on balance) OT Recommendations: [facility] facility placement Does patient understand post acute [...] OT? Answer: Evaluate and treat 09/17/242216 Normal [facility] CBC WITH AUTO DIFFERENTIALon 09-21-2024 Basophils (Bld) [#/Vol] 0.03 10*3/uL Normal 0.00-0.20 [facility] Comment on above: Performed By: #### L [id number] #### [facility] RESPIRATORY THERAPY [address] [place] [address] [facility] Basophils/100 WBC (Bld) 0.4 % Normal 0.0-1.0 [facility] Comment on above: Performed By: #### L [id number] #### [facility] RESPIRATORY THERAPY [address] [place], [place] [address] Eosinophils (Bld) [#/Vol] 0.18 10*3/uL Normal 0.00-0.50 [facility] Comment on above: Performed By: #### L [id number] #### [facility] RESPIRATORY THERAPY [address] [place] [address] [facility] Eosinophils/100 WBC (Bld) 2.3 % Normal 0.0-6.0 [facility] Comment on above: Performed By: #### L [id number] #### [facility] RESPIRATORY THERAPY [address] [place], [place] [address] Erythrocyte distribution width (RBC) [Ratio] 13.2 % Normal 11.5-15.0 [facility] Comment on above: Performed By: #### L [id number] #### [facility] RESPIRATORY THERAPY [address] [place], [place] [address] ERYTHROCYTE MEAN CORPUSCULAR HEMOGLOBIN CONCENTRATION (G/DL) BY AUTOMATED 31.7 g/dL Low 32.0-35.0 [facility] Comment on above: Performed By: #### L [id number] #### [facility] RESPIRATORY THERAPY [address] [place] [address] [facility] Hematocrit (Bld) [Volume fraction] 38.8 % Normal 36.0-48.0 [facility] Comment on above: Performed By: #### L [id number] #### [facility] RESPIRATORY THERAPY [address] [place] [address] [place] Hemoglobin (Bld) [Mass/Vol] 12.3 g/dL Normal 12.0-15.0 [facility] Comment on above: Performed By: #### L [id number] #### [facility] RESPIRATORY THERAPY [address] [place] [address] [place] Immature granulocytes (Bld) [#/Vol] 0.03 10*3/uL Normal 0.00-0.20 [facility] Comment on above: Performed By: #### L [id number] #### [facility] RESPIRATORY THERAPY [address] [place] [address] [place] Immature granulocytes/100 WBC (Bld) 0.4 % Normal 0.0-1.0 [facility] Comment on above: Performed By: #### L [id number] #### [facility] RESPIRATORY THERAPY [address] [place], [place] [address] Lymphocytes (Bld) [#/Vol] 2.57 10*3/uL Normal 1.20-4.00 [facility] Comment on above: Performed By: #### L [id number] #### [facility] RESPIRATORY THERAPY [address] [place], [place] [address] Lymphocytes/100 WBC (Bld) 33.2 % Normal 20.0-45.0 [facility] Comment on above: Performed By: #### L [id number] #### [facility] RESPIRATORY THERAPY [address] [place], [place] [address] MCH (RBC) [Entitic mass] 29.9 pg Normal 27.0-33.0 [facility] Comment on above: Performed By: #### L [id number] #### [facility] RESPIRATORY THERAPY [address] [place], [place] [address] MCV (RBC) [Entitic vol] 94.2 fL Normal 82.0-98.0 U [facility] Comment on above: Performed By: #### L [id number] #### [facility] RESPIRATORY THERAPY [address] [place], [place] [address] Monocytes (Bld) [#/Vol] 0.74 10*3/uL Normal 0.10-1.00 [facility] Comment on above: Performed By: #### L [id number] #### [facility] RESPIRATORY THERAPY [address] [place], [place] [address] Monocytes/100 WBC (Bld) 9.6 % Normal 5.0-12.0 U [facility] Comment on above: Performed By: #### L [id number] #### [facility] RESPIRATORY THERAPY [address] [place], [place] [address] Neutrophils (Bld) [#/Vol] 4.21 10*3/uL Normal 1.60-7.60 [facility] Comment on above: Performed By: #### L [id number] #### [facility] RESPIRATORY THERAPY [address] [place] [address] [place] Neutrophils/100 WBC (Bld) 54.5 % Normal 40.0-72.0 [facility] Comment on above: Performed By: #### L [id number] #### [facility] RESPIRATORY THERAPY [address] [place] [address] [place] NRBC (PER 100 WBCS) BY AUTOMATED COUNT 0.0 % Normal 0 [facility] Comment on above: Performed By: #### L [id number] #### [facility] RESPIRATORY THERAPY [address] [facility] [place] [place] [address] [place] PLATELETS (10*3/UL) IN BLOOD AUTOMATED COUNT 289 10*3/uL Normal 150-400 [facility] Comment on above: Performed By: #### L [id number] #### [facility] RESPIRATORY THERAPY [address] [place] [address] [facility] RBC (Bld) [#/Vol] 4.12 10*6/uL Normal 3.80-5.00 [facility] Comment on above: Performed By: #### L [id number] #### [facility] RESPIRATORY THERAPY [address] [place] [address] [place] WBC (Bld) [#/Vol] 7.73 10*3/uL Normal 4.00-10.60 [facility] Comment on above: Performed By: #### L [id number] #### [facility] RESPIRATORY THERAPY [address] [place] [address] [facility] COMPREHENSIVE METABOLIC PANE Sadiq 09-21-2024 Albumin [Mass/Vol] 3.5 g/dL Normal 3.5-5.7 [facility] Comment on above: Performed By: #### L [id number] ####[facility] HOSPITAL LAB (BEAKER)[address] [place] [address] ALP [Catalytic activity/Vol] 45 U/L Normal 34-104 [facility] Comment on above: Performed By: #### L [id number] ####[facility] HOSPITAL LAB (BEAKER)[address] [place] [address] ALT [Catalytic activity/Vol] 25 U/L Normal 7-52 [facility] Comment on above: Performed By: #### L [id number] ####[facility] HOSPITAL LAB (BEAKER)[address] [place] [address] Anion gap [Moles/Vol] 12 mmol/L Normal 7-20 [facility] Comment on above: Performed By: #### L [id number] ####[facility] HOSPITAL LAB (BEAKER)[address] [place] [address] AST [Catalytic activity/Vol] 31 U/L Normal 13-39 [facility] Comment on above: Performed By: #### L [id number] ####[facility] LAB (BEAKER)[address] [place] [address] Bilirubin [Mass/Vol] 0.5 mg/dL Normal 0.3-1.0 [facility] Comment on above: Performed By: #### L [id number] ####[facility] LAB (BEAKER)[address] [place] [address] Calcium [Mass/Vol] 8.7 mg/dL Normal 8.6-10.3 [facility] Comment on above: Performed By: #### L [id number] ####[facility] HOSPITAL LAB (BEAKER)[address] [place] [address] Chloride [Moles/Vol] 104 mmol/L Normal 98-107 [facility] Comment on above: Performed By: #### L [id number] ####[facility] HOSPITAL LAB (BEAKER)[address] [place] [address] CO2 [Moles/Vol] 26 mmol/L Normal 21-31 [facility] Comment on above: Performed By: #### L [id number] ####[facility] HOSPITAL LAB (BEAKER)[address] [place] [address] Creatinine [Mass/Vol] 1.00 mg/dL Normal 0.60-1.20 [facility] Comment on above: Performed By: #### L [id number] ####[facility] HOSPITAL LAB (BEAKER)[address] [place] [address] GLOMERULAR FILTRATION RATE ML/MIN/1.73 SQ M.PREDICTED 55.9 mL/min/1.73m*2 Low >60.0 [facility] Comment on above: Result Comment: The [facility]???s estimated glomerular filtration rate (eGFR) will [...] of individuals. Performed By: #### L [id number] ####[facility] LAB ([facility])[address] [facility] [place] [address] Glucose [Mass/Vol] 131 mg/dL High 70-100 [facility] Comment on above: Performed By: #### L [id number] ####[facility] LAB ([facility])[address] [facility] [place] [address] Potassium [Moles/Vol] 4.4 mmol/L Normal 3.5-5.1 [facility] Comment on above: Performed By: #### L [id number] ####[facility] LAB ([facility])[address] [facility] [place] [address] Protein [Mass/Vol] 5.9 g/dL Low 6.0-8.3 [facility] Comment on above: Performed By: #### L [id number] ####[facility] LAB ([facility])[address] [place] [address] Sodium [Moles/Vol] 138 mmol/L Normal 136-145 [facility] Comment on above: Performed By: #### L [id number] ####[facility] LAB ([facility])[address] [place] [address] Urea nitrogen [Mass/Vol] 15 mg/dL Normal 7-25 [facility] Comment on above: Performed By: #### L [id number] ####[facility] LAB (BEAKER)[address] [place] [address] UREA NITROGEN/CREATININE (MASS RATIO) IN SER/PLAS 15.0 Normal [facility] Comment on above: Performed By: #### L [id number] ####[facility] LAB ([facility])[address] [place] [address] POCT GLUCOSE METER UNSOLICIT ED RESULTSon 09-21-2024 Glucose [Mass/Vol] 182 mg/dL High 70-105 [facility] Comment on above: Order Comment: Waive d Testing in the ED is performed under the ED CLIA certificate #[id number]. Result Comment: srab ee Performed By: #### L [id number] ####[facility] LAB ([facility])[address] [place] [address] Glucose [Mass/Vol] 114 mg/dL High 70-105 [facility] Comment on above: Order Comment: Waive d Testing in the ED is performed under the ED CLIA certificate #[id number]. Result Comment: srab ee Performed By: #### L [id number] #### [facility] LAB ([facility]) [address] [place] [address] 30on 09-20-2024 30 The patient is Moderately [...] Skin integrity remains intact Outcome: Progressing Normal [facility] CBC WITH AUTO DIFFERENTIALon 09-20-2024 Basophils (Bld) [#/Vol] 0.03 10*3/uL Normal 0.00-0.20 [facility] Comment on above: Performed By: #### L [id number] ####[facility] LAB ([facility] [place] [address] Basophils/100 WBC (Bld) 0.4 % Normal 0.0-1.0 [facility] Comment on above: Performed By: #### L [id number] ####[facility] HOSPITAL LAB (BEAKER)[address] [place] [address] Eosinophils (Bld) [#/Vol] 0.12 10*3/uL Normal 0.00-0.50 [facility] Comment on above: Performed By: #### L [id number] ####[facility] LAB ([facility] [place] [address] Eosinophils/100 WBC (Bld) 1.6 % Normal 0.0-6.0 [facility] Comment on above: Performed By: #### L [id number] ####[facility] LAB ([facility])[address] [place] [address] Erythrocyte distribution width (RBC) [Ratio] 13.4 % Normal 11.5-15.0 [facility] Comment on above: Performed By: #### L [id number] ####[facility] LAB ([facility])[address] [place] [address] ERYTHROCYTE MEAN CORPUSCULAR HEMOGLOBIN CONCENTRATION (G/DL) BY AUTOMATED 32.0 g/dL Normal 32.0-35.0 [facility] Comment on above: Performed By: #### L [id number] ####[facility] LAB ([facility] [place] [address] Hematocrit (Bld) [Volume fraction] 39.7 % Normal 36.0-48.0 [facility] Comment on above: Performed By: #### L [id number] ####[facility] LAB ([facility] [place] [address] Hemoglobin (Bld) [Mass/Vol] 12.7 g/dL Normal 12.0-15.0 [facility] Comment on above: Performed By: #### L [id number] ####[facility] LAB (BEAKER)[address] [place] [address] Immature granulocytes (Bld) [#/Vol] 0.04 10*3/uL Normal 0.00-0.20 [facility] Comment on above: Performed By: #### L [id number] ####[facility] LAB ([facility] [place] [address] Immature granulocytes/100 WBC (Bld) 0.5 % Normal 0.0-1.0 [facility] Comment on above: Performed By: #### L [id number] ####[facility] LAB ([facility])[address] [place] [address] Lymphocytes (Bld) [#/Vol] 1.74 10*3/uL Normal 1.20-4.00 [facility] Comment on above: Performed By: #### L [id number] ####[facility] LAB ([facility])[address] [place] [address] Lymphocytes/100 WBC (Bld) 22.6 % Normal 20.0-45.0 [facility] Comment on above: Performed By: #### L [id number] ####[facility] LAB ([facility])[address] [place] [address] MCH (RBC) [Entitic mass] 30.0 pg Normal 27.0-33.0 [facility] Comment on above: Performed By: #### L [id number] ####[facility] LAB ([facility])[address] [place] [address] MCV (RBC) [Entitic vol] 93.6 fL Normal 82.0-98.0 U [facility] Comment on above: Performed By: #### L [id number] ####[facility] LAB ([facility])[address] [place] [address] Monocytes (Bld) [#/Vol] 0.73 10*3/uL Normal 0.10-1.00 [facility] Comment on above: Performed By: #### L [id number] ####[facility] LAB ([facility] [place] [address] Monocytes/100 WBC (Bld) 9.5 % Normal 5.0-12.0 U [facility] Comment on above: Performed By: #### L [id number] ####[facility] LAB (BEAKER)[address] [place] [address] Neutrophils (Bld) [#/Vol] 5.08 10*3/uL Normal 1.60-7.60 [facility] Comment on above: Performed By: #### L [id number] ####[facility] LAB (BEAKER)[address] [place] [address] Neutrophils/100 WBC (Bld) 65.9 % Normal 40.0-72.0 [facility] Comment on above: Performed By: #### L [id number] ####[facility] LAB ([facility])[address] [place] [address] NRBC (PER 100 WBCS) BY AUTOMATED COUNT 0.0 % Normal 0 [facility] Comment on above: Performed By: #### L [id number] ####[facility] ([facility])[address] [place] [address] PLATELETS (10*3/UL) IN BLOOD AUTOMATED COUNT 286 10*3/uL Normal 150-400 [facility] Comment on above: Performed By: #### L [id number] ####[facility] LAB ([facility])[address] [place] [address] RBC (Bld) [#/Vol] 4.24 10*6/uL Normal 3.80-5.00 [facility] Comment on above: Performed By: #### L [id number] ####[facility] LAB ([facility] [place] [address] WBC (Bld) [#/Vol] 7.70 10*3/uL Normal 4.00-10.60 [facility] Comment on above: Performed By: #### L [id number] ####[facility] LAB (BEAKER)[address] [place] [address] COMPREHENSIVE METABOLIC PANE Sadiq 09-20-2024 Albumin [Mass/Vol] 3.7 g/dL Normal 3.5-5.7 [facility] Comment on above: Performed By: #### L [id number] #### [facility] LAB (BEAKER) [address] [place] [address] ALP [Catalytic activity/Vol] 44 U/L Normal 34-104 [facility] Comment on above: Performed By: #### L [id number] #### [facility] LAB (BEAKER) [address] [place] [address] ALT [Catalytic activity/Vol] 12 U/L Normal 7-52 [facility] Comment on above: Performed By: #### L [id number] #### [facility] LAB (BEAKER) [address] [place] [address] Anion gap [Moles/Vol] 11 mmol/L Normal 7-20 [facility] Comment on above: Performed By: #### L [id number] #### [facility] ([facility] [address] [place] [address] AST [Catalytic activity/Vol] 22 U/L Normal 13-39 [facility] Comment on above: Performed By: #### L [id number] #### [facility] ([facility] [address] [place] [address] Bilirubin [Mass/Vol] 0.5 mg/dL Normal 0.3-1.0 [facility] Comment on above: Performed By: #### L [id number] #### [facility] LAB (BEAKER) [address] [place] [address] Calcium [Mass/Vol] 9.0 mg/dL Normal 8.6-10.3 [facility] Comment on above: Performed By: #### L [id number] #### [facility] HOSPITAL LAB (BEAKER) [address] [place] [address] Chloride [Moles/Vol] 104 mmol/L Normal 98-107 [facility] Comment on above: Performed By: #### L [id number] #### [facility] HOSPITAL LAB (BEAKER) [address] [place] [address] CO2 [Moles/Vol] 27 mmol/L Normal 21-31 [facility] Comment on above: Performed By: #### L [id number] #### [facility] ([facility]) [address] [facility] [place] [address] Creatinine [Mass/Vol] 0.86 mg/dL Normal 0.60-1.20 [facility] Comment on above: Performed By: #### L [id number] #### [facility] LAB ([facility]) [address] [place] [address] GLOMERULAR FILTRATION RATE ML/MIN/1.73 SQ M.PREDICTED 67.0 mL/min/1.73m*2 Normal >60.0 [facility] Comment on above: Result Comment: The [facility]???s estimated glomerular filtration rate (eGFR) will [...] group of individuals. Performed By: #### L [id number] #### [facility] ([facility]) [address] [place] [address] Glucose [Mass/Vol] 115 mg/dL High 70-100 [facility] Comment on above: Performed By: #### L [id number] #### [facility] ([facility]) [address] [place] [address] Potassium [Moles/Vol] 4.1 mmol/L Normal 3.5-5.1 [facility] Comment on above: Performed By: #### L [id number] #### [facility] ([facility]) [address] [place] [address] Protein [Mass/Vol] 6.2 g/dL Normal 6.0-8.3 [facility] Comment on above: Performed By: #### L [id number] #### [facility] LAB (BEAKER) [address] [place] [address] Sodium [Moles/Vol] 138 mmol/L Normal 136-145 [facility] Comment on above: Performed By: #### L [id number] #### [facility] LAB (BEAKER) [address] [place] [address] Urea nitrogen [Mass/Vol] 12 mg/dL Normal 7-25 [facility] Comment on above: Performed By: #### L [id number] #### [facility] [address] [place] [address] UREA NITROGEN/CREATININE (MASS RATIO) IN SER/PLAS 14.0 Normal [facility] Comment on above: Performed By: #### L [id number] #### [facility] ([facility] [address] [place] [address] CONSULTon 09-20-2024 CONSULT Reason For Consult Encephalopathy without clear etiology Referring Provider: Kayleigh Rivera MD History Of Present Illness Saeed Sarabia is a 83 y.o. female who was transferred from [facility] to [facility] with cholelithiasis and acute cholecystitis. She [...] mL intravenou (more content not included)... Normal [facility] GASTRINon 09-20-2024 GASTRIN (PG/ML) IN SER/PLAS 21 pg/mL Normal 0-100 [facility] Comment on above: Result Comment: Perf ormed By: [employer] [address] [place] [id number] Fmd Teacher: Ash Worley MD, PhD CLIA Number: [id number] Performed By: #### L [id number] #### [facility] [address] [place] [address] HPon 09-20-2024 HP H&P reviewed. The patient was examined and there are no changes to the H&P. [facility] NURSNOTEon 09-20-[address] Ramiro rodrigez with patient being discharged from PACU to return to bed 4184 [facility] NURSNOTE May resume a Regular Diet, with strict anti-reflux measures. May resume all medications as ordered by admitting physician. New prescription for Pantoprazole 40 mg PO BID. Repeat EGD Scope outpatient in 8 weeks for evaluation on ulcers and biopsy samples. [facility] NURSNOTE EGD Findings: Gastri c Ulcers; Duodenal Ulcers; LA Grade A Esophagitis [facility] NURSNOTE . [facility] POCT GLUCOSE METER UNSOLICIT ED RESULTSon 09-20-2024 Glucose [Mass/Vol] 138 mg/dL High 70-105 [facility] Comment on above: Order Comment: Waive d Testing in the ED is performed under the ED CLIA certificate #[id number]. Result Comment: [email or web address] Performed By: #### L [id number] ####[facility] ([employer])[address] [place] [address] Glucose [Mass/Vol] 220 mg/dL High 70-105 [facility] Comment on above: Order Comment: Waive d Testing in the ED is performed under the ED CLIA certificate #[id number]. Result Comment: [email or web address] Performed By: #### L [id number] ####[facility] ([employer])[address] [place] [address] Glucose [Mass/Vol] 165 mg/dL High 70-105 [facility] Comment on above: Order Comment: Waive d Testing in the ED is performed under the ED CLIA certificate #[id number]. Result Comment: [email or web address] Performed By: #### L [id number] ####[facility] (BEAKER)[address] [place] [address] 30on 09-19-2024 30 The patient is Moderately Stable - Low risk of patient condition declining or worsening The patient's goals for the shift include comfort The clinical goals for the shift include VSS, comfort Normal [facility] AMMONIAon 09-19-2024 AMMONIA (UMOL/L) IN PLASMA 25 umol/L Normal 18-72 [facility] Comment on above: Performed By: #### L [id number] #### [facility] RESPIRATORY THERAPY [address] [place] [address] [facility] CBC WITH AUTO DIFFERENTIALon 09-19-2024 Basophils (Bld) [#/Vol] 0.03 10*3/uL Normal 0.00-0.20 [facility] Comment on above: Performed By: #### L [id number] ####[facility] HOSPITAL LAB (BEAKER)[address] [place] [address] Basophils/100 WBC (Bld) 0.3 % Normal 0.0-1.0 [facility] Comment on above: Performed By: #### L [id number] ####[facility] LAB (BEAKER)[address] [place] [address] Eosinophils (Bld) [#/Vol] 0.03 10*3/uL Normal 0.00-0.50 [facility] Comment on above: Performed By: #### L [id number] ####[facility]PITAL LAB (BEAKER)[address] [place] [address] Eosinophils/100 WBC (Bld) 0.3 % Normal 0.0-6.0 [facility] Comment on above: Performed By: #### L [id number] ####[facility] LAB (BEAKER)[address] [place] [address] Erythrocyte distribution width (RBC) [Ratio] 13.2 % Normal 11.5-15.0 [facility] Comment on above: Performed By: #### L [id number] ####[facility]PITAL LAB (BEAKER)[address] [place] [address] ERYTHROCYTE MEAN CORPUSCULAR HEMOGLOBIN CONCENTRATION (G/DL) BY AUTOMATED 32.4 g/dL Normal 32.0-35.0 [facility] Comment on above: Performed By: #### L [id number] ####[facility] [place] [address] Hematocrit (Bld) [Volume fraction] 41.3 % Normal 36.0-48.0 [facility] Comment on above: Performed By: #### L [id number] ####[facility] LAB (BEAKER)[address] [place] [address] Hemoglobin (Bld) [Mass/Vol] 13.4 g/dL Normal 12.0-15.0 [facility] Comment on above: Performed By: #### L [id number] ####[facility] LAB (BEAKER)[address] [place] [address] Immature granulocytes (Bld) [#/Vol] 0.03 10*3/uL Normal 0.00-0.20 [facility] Comment on above: Performed By: #### L [id number] ####[facility] LAB (BEAKER)[address] [place] [address] Immature granulocytes/100 WBC (Bld) 0.3 % Normal 0.0-1.0 [facility] Comment on above: Performed By: #### L [id number] ####[facility] LAB (BEAKER)[address] [place] [address] Lymphocytes (Bld) [#/Vol] 2.15 10*3/uL Normal 1.20-4.00 [facility] Comment on above: Performed By: #### L [id number] ####[facility] LAB (BEAKER)[address] [place] [address] Lymphocytes/100 WBC (Bld) 20.7 % Normal 20.0-45.0 [facility] Comment on above: Performed By: #### L [id number] ####[facility] LAB (BEAKER)[address] [place] [address] MCH (RBC) [Entitic mass] 30.2 pg Normal 27.0-33.0 [facility] Comment on above: Performed By: #### L [id number] ####[facility] [place] [address] MCV (RBC) [Entitic vol] 93.0 fL Normal 82.0-98.0 [facility] Comment on above: Performed By: #### L [id number] ####[facility] LAB ([facility])[address] [place] [address] Monocytes (Bld) [#/Vol] 0.90 10*3/uL Normal 0.10-1.00 [facility] Comment on above: Performed By: #### L [id number] ####[facility] LAB ([facility])[address] [place] [address] Monocytes/100 WBC (Bld) 8.7 % Normal 5.0-12.0 [facility] Comment on above: Performed By: #### L [id number] ####[facility] LAB ([facility])[address] [place] [address] Neutrophils (Bld) [#/Vol] 7.25 10*3/uL Normal 1.60-7.60 [facility] Comment on above: Performed By: #### L [id number] ####[facility] [place] [address] Neutrophils/100 WBC (Bld) 69.7 % Normal 40.0-72.0 [facility] Comment on above: Performed By: #### L [id number] ####[facility] [place] [address] NRBC (PER 100 WBCS) BY AUTOMATED COUNT 0.0 % Normal 0 [facility] Comment on above: Performed By: #### L [id number] ####[facility] LAB (BEAKER)[address] [place] [address] PLATELETS (10*3/UL) IN BLOOD AUTOMATED COUNT 333 10*3/uL Normal 150-400 [facility] Comment on above: Performed By: #### L [id number] ####[facility] [place] [address] RBC (Bld) [#/Vol] 4.44 10*6/uL Normal 3.80-5.00 [facility] Comment on above: Performed By: #### L [id number] ####[facility] [place] [address] WBC (Bld) [#/Vol] 10.39 10*3/uL Normal 4.00-10.60 [facility] Comment on above: Performed By: #### L [id number] ####[facility] LAB ([facility])[address] [place] [address] COMPREHENSIVE METABOLIC PANE [facility] 09-19-2024 Albumin [Mass/Vol] 4.0 g/dL Normal 3.5-5.7 [facility] Comment on above: Performed By: #### L [id number] ####[facility] [place] [address] ALP [Catalytic activity/Vol] 49 U/L Normal 34-104 [facility] Comment on above: Performed By: #### L [id number] ####[facility] [place] [address] ALT [Catalytic activity/Vol] 11 U/L Normal 7-52 [facility] Comment on above: Performed By: #### L [id number] ####[facility] [place] [address] Anion gap [Moles/Vol] 14 mmol/L Normal 7-20 [facility] Comment on above: Performed By: #### L [id number] ####[facility] LAB (BEAKER)[address] [place] [address] AST [Catalytic activity/Vol] 18 U/L Normal 13-39 [facility] Comment on above: Performed By: #### L [id number] ####[facility] LAB (BEAKER)[address] [place] [address] Bilirubin [Mass/Vol] 0.5 mg/dL Normal 0.3-1.0 [facility] Comment on above: Performed By: #### L [id number] ####[facility] [place] [address] Calcium [Mass/Vol] 9.4 mg/dL Normal 8.6-10.3 [facility] Comment on above: Performed By: #### L [id number] ####[facility] [place] [address] Chloride [Moles/Vol] 102 mmol/L Normal 98-107 [facility] Comment on above: Performed By: #### L [id number] ####[facility] [place] [address] CO2 [Moles/Vol] 25 mmol/L Normal 21-31 [facility] Comment on above: Performed By: #### L [id number] ####[facility] [place] [address] Creatinine [Mass/Vol] 0.79 mg/dL Normal 0.60-1.20 [facility] Comment on above: Performed By: #### L [id number] ####[facility] [place] [address] GLOMERULAR FILTRATION RATE ML/MIN/1.73 SQ M.PREDICTED 74.2 mL/min/1.73m*2 Normal >60.0 [facility] Comment on above: Result Comment: The [facility]???s estimated glomerular filtration rate (eGFR) will [...] of individuals. Performed By: #### L [id number] ####[facility] [place] [address] Glucose [Mass/Vol] 147 mg/dL High 70-100 [facility] Comment on above: Performed By: #### L [id number] ####[facility] [place] [address] Potassium [Moles/Vol] 4.0 mmol/L Normal 3.5-5.1 [facility] Comment on above: Performed By: #### L [id number] ####[facility] LAB ([facility])[address] [place] [address] Protein [Mass/Vol] 6.5 g/dL Normal 6.0-8.3 [facility] Comment on above: Performed By: #### L [id number] ####[facility] LAB ([facility])[address] [place] [address] Sodium [Moles/Vol] 137 mmol/L Normal 136-145 [facility] Comment on above: Performed By: #### L [id number] ####[facility] LAB ([facility])[address] [place] [address] Urea nitrogen [Mass/Vol] 12 mg/dL Normal 7-25 [facility] Comment on above: Performed By: #### L [id number] ####[facility] [place] [address] UREA NITROGEN/CREATININE (MASS RATIO) IN SER/PLAS 15.2 Normal [facility] Comment on above: Performed By: #### L [id number] ####[facility] LAB [facility] [place] [address] MAGNESIUMon 09-19-2024 Magnesium [Mass/Vol] 1.7 mg/dL Low 1.9-2.7 [facility] Comment on above: Performed By: #### L [id number] ####[facility] LAB (BEAKER)[address] [place] [address] POCT GLUCOSE METER UNSOLICIT ED RESULTSon 09-19-2024 Glucose [Mass/Vol] 140 mg/dL High 70-105 [facility] Comment on above: Order Comment: Waive d Testing in the ED is performed under the ED CLIA certificate #[id number]. Result Comment: [email or web address] Performed By: #### L [id number] ####[facility] HOSPITAL LAB ([facility])[address] [place] [address] Glucose [Mass/Vol] 146 mg/dL High 70-105 [facility] Comment on above: Order Comment: Waive d Testing in the ED is performed under the ED CLIA certificate #[id number]. Result Comment: [email or web address] ppe Performed By: #### L [id number] ####[facility] LAB ([facility])[address] [facility] [address] Glucose [Mass/Vol] 198 mg/dL High 70-105 [facility] Comment on above: Order Comment: Waive d Testing in the ED is performed under the ED CLIA certificate #[id number]. Result Comment: [email or web address] Performed By: #### L [id number] #### [facility] RESPIRATORY THERAPY [address] [place] [address] [facility] Glucose [Mass/Vol] 151 mg/dL High 70-105 [facility] Comment on above: Order Comment: Waive d Testing in the ED is performed under the ED CLIA certificate #[id number]. Result Comment: [email or web address] Performed By: #### L [id number] ####[facility]OSP[facility] LAB ([facility])[address] [place] [address] 30on 09-18-2024 30 The patient is Moderately Stable - Low risk of patient condition declining or worsening The patient's goals for the shift include comfort The clinical goals for the shift include comfort Normal [facility] 30 Daily Case Managemen t Update Multidisciplinary rounds have been completed. Barriers to Discharge: Patient is a transfer from [place] for c/o abd pain, AMS and CT [...] Click Score: 17 PT Recommendations: OT Recommendations: USP facility placement (vs return home with 24 [...] OT? Answer: Evaluate and treat 09/17/242216 Normal [facility] 30 The patient is Moderately Stable [...] maintained or improved Outcome: Not Progressing Normal [facility] BASIC METABOLIC PANELon 12-1 Anion gap [Moles/Vol] 13 mmol/L Normal 7-20 [facility] Comment on above: Performed By: #### L [id number] #### [facility] RESPIRATORY THERAPY [address] [place] [address] [facility] Calcium [Mass/Vol] 9.0 mg/dL Normal 8.6-10.3 [facility] Comment on above: Performed By: #### L [id number] #### [facility] RESPIRATORY THERAPY [address] [place] [address] [facility] Chloride [Moles/Vol] 102 mmol/L Normal 98-107 [facility] Comment on above: Performed By: #### L [id number] #### [facility] RESPIRATORY THERAPY [address] [place] [address] [facility] CO2 [Moles/Vol] 27 mmol/L Normal 21-31 [facility] Comment on above: Performed By: #### L [id number] #### [facility] RESPIRATORY THERAPY [address] [place] [address] [facility] Creatinine [Mass/Vol] 0.72 mg/dL Normal 0.60-1.20 [facility] Comment on above: Performed By: #### L [id number] #### [facility] RESPIRATORY THERAPY [address] [place] [address] [facility] GLOMERULAR FILTRATION RATE ML/MIN/1.73 SQ M.PREDICTED 82.9 mL/min/1.73m*2 Normal >60.0 [facility] Comment on above: Result Comment: The [facility]???s estimated glomerular filtration rate (eGFR) will [...] individuals. Performed By: #### L [id number] #### [facility] RESPIRATORY THERAPY [address] [place] [address] [facility] Glucose [Mass/Vol] 112 mg/dL High 70-100 [facility] Comment on above: Performed By: #### L [id number] #### [facility] RESPIRATORY THERAPY [address] [place] [address] [facility] Potassium [Moles/Vol] 4.0 mmol/L Normal 3.5-5.1 [facility] Comment on above: Performed By: #### L [id number] #### [facility] RESPIRATORY THERAPY [address] [place] [address] [facility] Sodium [Moles/Vol] 138 mmol/L Normal 136-145 [facility] Comment on above: Performed By: #### L [id number] #### [facility] RESPIRATORY THERAPY [address] [place] [address] [facility] Urea nitrogen [Mass/Vol] 17 mg/dL Normal 7-25 [facility] Comment on above: Performed By: #### L [id number] #### [facility] RESPIRATORY THERAPY [address] [place] [address] [facility] UREA NITROGEN/CREATININE (MASS RATIO) IN SER/PLAS 23.6 Normal [facility] Comment on above: Performed By: #### L [id number] #### [facility] RESPIRATORY THERAPY [address] [place] [address] [facility] CBCon 09-18-2024 Erythrocyte distribution width (RBC) [Ratio] 13.2 % Normal 11.5-15.0 [facility] Comment on above: Performed By: #### L [id number] #### [facility] RESPIRATORY THERAPY [address] [place] [address] [facility] ERYTHROCYTE MEAN CORPUSCULAR HEMOGLOBIN CONCENTRATION (G/DL) BY AUTOMATED 31.5 g/dL Low 32.0-35.0 [facility] Comment on above: Performed By: #### L [id number] #### [facility] RESPIRATORY THERAPY [address] [place] [address] [facility] Hematocrit (Bld) [Volume fraction] 39.1 % Normal 36.0-48.0 [facility] Comment on above: Performed By: #### L [id number] #### [facility] RESPIRATORY THERAPY [address] [place] [address] [facility] Hemoglobin (Bld) [Mass/Vol] 12.3 g/dL Normal 12.0-15.0 [facility] Comment on above: Performed By: #### L [id number] #### [facility] RESPIRATORY THERAPY [address] [place] [address] [facility] MCH (RBC) [Entitic mass] 30.4 pg Normal 27.0-33.0 [facility] Comment on above: Performed By: #### L [id number] #### [facility] RESPIRATORY THERAPY [address] [place] [address] [facility] MCV (RBC) [Entitic vol] 96.8 fL Normal 82.0-98.0 [facility] Comment on above: Performed By: #### L [id number] #### [facility] RESPIRATORY THERAPY [address] [place] [address] [facility] PLATELETS (10*3/UL) IN BLOOD AUTOMATED COUNT 284 10*3/uL Normal 150-400 [facility] Comment on above: Performed By: #### L [id number] #### [facility] RESPIRATORY THERAPY [address] [place] [address] [facility] RBC (Bld) [#/Vol] 4.04 10*6/uL Normal 3.80-5.00 [facility] Comment on above: Performed By: #### L [id number] #### [facility] RESPIRATORY THERAPY [address] [place] [address] [facility] WBC (Bld) [#/Vol] 6.54 10*3/uL Normal 4.00-10.60 [facility] Comment on above: Performed By: #### L [id number] #### [facility] RESPIRATORY THERAPY [address] [place] [address] [facility] CONSULTon 12-11-2024 CONSULT -- Attestation signed [...] lower back pain who was transferred from [facility] ER due to abdominal pain and the diagnosis of cholelithiasis with acute cholecystitis. History was taken from chart since the patient was a poor historian. The story of the patient goes back to 2 months ago when she has been complaining of abdominal pain, poor appetite and worsening her mental status. She was taken to [facility] ER for the evaluation of the [...] PRN ondanse (more content not included)... Normal [facility] 09-18-2024 -- Attestation signed by Anaya Khnana MD at 09/18/2024 10:42 PM The patient [...] lower back pain who was transferred from [facility] ER due to abdominal pain and the diagnosis of cholelithiasis with acute cholecystitis. History was taken from chart since the patient was a poor historian. The story of the patient goes back to 2 months ago when she has been complaining of abdominal pain, poor appetite and worsening her mental status. She was taken to [facility] ER for the evaluation of the [...] PRN ondanse (more content not included)... Normal [facility] MR BRAIN WO CONTRASTon 09-18 MR [...] Otilio Wilson MD. 8 Invalid Interpretation Code [facility] POCT GLUCOSE METER UNSOLICIT ED RESULTSon 09-18-2024 Glucose [Mass/Vol] 154 mg/dL High 70-105 [facility] Comment on above: Order Comment: Waive d Testing in the ED is performed under the ED CLIA certificate #[id number]. Result Comment: [email or web address] Performed By: #### L [id number] ####[facility] LAB (BEAKER)[address] [place] [address] Glucose [Mass/Vol] 211 mg/dL High 70-105 [facility] Comment on above: Order Comment: Waive d Testing in the ED is performed under the ED CLIA certificate #[id number]. Result Comment: [email or web address] ppe Performed By: #### L [id number] ####[facility] LAB (BEAKER)[address] [place] [address] Glucose [Mass/Vol] 170 mg/dL High 70-105 [facility] Comment on above: Order Comment: Waive d Testing in the ED is performed under the ED CLIA certificate #[id number]. Result Comment: [email or web address] Performed By: #### L [id number] ####[facility] LAB (BEAKER)[address] [place] [address] Glucose [Mass/Vol] 125 mg/dL High 70-105 [facility] Comment on above: Order Comment: Waive d Testing in the ED is performed under the ED CLIA certificate #[id number]. Result Comment: [email or web address] Performed By: #### L [id number] #### [facility] RESPIRATORY THERAPY [address] [place], [place] [address] T4, FREEon 09-18-2024 THYROXINE (T4) FREE (NG/DL) IN SER/PLAS 1.38 ng/dL Normal 0.71-1.85 [facility] Comment on above: Performed By: #### L [id number] #### [facility] RESPIRATORY THERAPY [address] [place], [place] [address] TSH3 REFLEX TO FT4on 024 THYROTROPIN (MIU/L) IN SER/PLAS BY DETECTION LIMIT <= 0.05 MIU/L 0.04 mIU/L Low 0.34-5.60 [facility] Comment on above: Performed By: #### L [id number] #### [facility] RESPIRATORY THERAPY [address] [place], [place] [address] CALCIUM, IONIZEDon CALCIUM IONIZED (MMOL/L) IN BLOOD 1.02 mmol/L Low 1.15-1.33 [facility] Comment on above: Performed By: #### L [id number] #### [facility] RESPIRATORY THERAPY [address] [place], [place] [address] CBC WITH AUTO DIFFERENTIALon 09-17-2024 Basophils (Bld) [#/Vol] 0.02 10*3/uL Normal 0.00-0.20 [facility] Comment on above: Performed By: #### L [id number] ####[facility] LAB (BEAKER)[address] [place] [address] Basophils/100 WBC (Bld) 0.3 % Normal 0.0-1.0 [facility] Comment on above: Performed By: #### L [id number] ####[facility] LAB (BEAKER)[address] [place] [address] Eosinophils (Bld) [#/Vol] 0.06 10*3/uL Normal 0.00-0.50 [facility] Comment on above: Performed By: #### L [id number] ####[facility] [place] [address] Eosinophils/100 WBC (Bld) 0.8 % Normal 0.0-6.0 [facility] Comment on above: Performed By: #### L [id number] ####[facility] [place] [address] Erythrocyte distribution width (RBC) [Ratio] 13.1 % Normal 11.5-15.0 [facility] Comment on above: Performed By: #### L [id number] ####[facility] [place] [address] ERYTHROCYTE MEAN CORPUSCULAR HEMOGLOBIN CONCENTRATION (G/DL) BY AUTOMATED 33.1 g/dL Normal 32.0-35.0 [facility] Comment on above: Performed By: #### L [id number] ####[facility] [place] [address] Hematocrit (Bld) [Volume fraction] 39.0 % Normal 36.0-48.0 [facility] Comment on above: Performed By: #### L [id number] ####[facility] [place] [address] Hemoglobin (Bld) [Mass/Vol] 12.9 g/dL Normal 12.0-15.0 [facility] Comment on above: Performed By: #### L [id number] ####[facility] LAB (BEAKER)[address] [place] [address] Immature granulocytes (Bld) [#/Vol] 0.01 10*3/uL Normal 0.00-0.20 [facility] Comment on above: Performed By: #### L [id number] ####[facility] LAB ([facility])[address] [place] [address] Immature granulocytes/100 WBC (Bld) 0.1 % Normal 0.0-1.0 [facility] Comment on above: Performed By: #### L [id number] ####[facility] ([facility])[address] [place] [address] Lymphocytes (Bld) [#/Vol] 2.03 10*3/uL Normal 1.20-4.00 [facility] Comment on above: Performed By: #### L [id number] ####[facility] LAB ([facility])[address] [place] [address] Lymphocytes/100 WBC (Bld) 28.6 % Normal 20.0-45.0 [facility] Comment on above: Performed By: #### L [id number] ####[facility] LAB ([facility])[address] [place] [address] MCH (RBC) [Entitic mass] 30.2 pg Normal 27.0-33.0 [facility] Comment on above: Performed By: #### L [id number] ####[facility] LAB ([facility])[address] [place] [address] MCV (RBC) [Entitic vol] 91.3 fL Normal 82.0-98.0 [facility] Comment on above: Performed By: #### L [id number] ####[facility] ([facility])[address] [place] [address] Monocytes (Bld) [#/Vol] 0.67 10*3/uL Normal 0.10-1.00 [facility] Comment on above: Performed By: #### L [id number] ####[facility] [place] [address] Monocytes/100 WBC (Bld) 9.4 % Normal 5.0-12.0 [facility] Comment on above: Performed By: #### L [id number] ####[facility] [place] [address] Neutrophils (Bld) [#/Vol] 4.31 10*3/uL Normal 1.60-7.60 [facility] Comment on above: Performed By: #### L [id number] ####[facility] [address] Neutrophils/100 WBC (Bld) 60.8 % Normal 40.0-72.0 [facility] Comment on above: Performed By: #### L [id number] ####[facility] ([facility])[address] [place] [address] NRBC (PER 100 WBCS) BY AUTOMATED COUNT 0.0 % Normal 0 [facility] Comment on above: Performed By: #### L [id number] ####[facility] ([facility])[address] [place] [address] PLATELETS (10*3/UL) IN BLOOD AUTOMATED COUNT 301 10*3/uL Normal 150-400 [facility] Comment on above: Performed By: #### L [id number] ####[facility] ([facility])[address] [place], [place] [address] RBC (Bld) [#/Vol] 4.27 10*6/uL Normal 3.80-5.00 [facility] Comment on above: Performed By: #### L [id number] ####[facility] ([facility] [place], [place] [address] WBC (Bld) [#/Vol] 7.10 10*3/uL Normal 4.00-10.60 [facility] Comment on above: Performed By: #### L [id number] ####[facility] ([facility] [place] [address] COMPREHENSIVE METABOLIC PANE Sdaiq 09-17-2024 Albumin [Mass/Vol] 3.9 g/dL Normal 3.5-5.7 [facility] Comment on above: Performed By: #### L [id number] #### [facility] ([facility]) [address] [place] [address] ALP [Catalytic activity/Vol] 43 U/L Normal 34-104 [facility] Comment on above: Performed By: #### L [id number] #### [facility] ([facility]) [address] [place] [address] ALT [Catalytic activity/Vol] 11 U/L Normal 7-52 [facility] Comment on above: Performed By: #### L [id number] #### [facility] ([facility]) [address] [place] [address] Anion gap [Moles/Vol] 14 mmol/L Normal 7-20 [facility] Comment on above: Performed By: #### L [id number] #### [facility] ([facility]) [address] [place] [address] AST [Catalytic activity/Vol] 15 U/L Normal 13-39 [facility] Comment on above: Performed By: #### L [id number] #### [facility] ([facility]) [address] [place] [address] Bilirubin [Mass/Vol] 0.5 mg/dL Normal 0.3-1.0 [facility] Comment on above: Performed By: #### L [id number] #### [facility] ([facility]) [address] [place] [address] Calcium [Mass/Vol] 9.2 mg/dL Normal 8.6-10.3 [facility] Comment on above: Performed By: #### L [id number] #### [facility] [address] [place] [address] Chloride [Moles/Vol] 102 mmol/L Normal 98-107 [facility] Comment on above: Performed By: #### L [id number] #### [facility] ([facility]) [address] [place] [address] CO2 [Moles/Vol] 24 mmol/L Normal 21-31 [facility] Comment on above: Performed By: #### L [id number] #### [facility] ([facility]) [address] [place] [address] Creatinine [Mass/Vol] 0.68 mg/dL Normal 0.60-1.20 [facility] Comment on above: Performed By: #### L [id number] #### [facility] ([facility]) [address] [place] [address] GLOMERULAR FILTRATION RATE ML/MIN/1.73 SQ M.PREDICTED 86.4 mL/min/1.73m*2 Normal >60.0 [facility] Comment on above: Result Comment: The [facility]???s estimated glomerular filtration rate (eGFR) will [...] individuals. Performed By: #### L [id number] #### [facility] ([facility]) [address] [place] [address] Glucose [Mass/Vol] 128 mg/dL High 70-100 [facility] Comment on above: Performed By: #### L [id number] #### [facility] ([facility]) [address] [place] [address] Potassium [Moles/Vol] 4.2 mmol/L Normal 3.5-5.1 [facility] Comment on above: Performed By: #### L [id number] #### [facility] ([facility]) [address] [place] [address] Protein [Mass/Vol] 6.7 g/dL Normal 6.0-8.3 [facility] Comment on above: Performed By: #### L [id number] #### [facility] ([facility]) [address] [place] [address] Sodium [Moles/Vol] 136 mmol/L Normal 136-145 [facility] Comment on above: Performed By: #### L [id number] #### [facility] ([facility]ER) [address] [place] [address] Urea nitrogen [Mass/Vol] 16 mg/dL Normal 7-25 [facility] Comment on above: Performed By: #### L [id number] #### [facility] ([facility]) [address] [place] [address] UREA NITROGEN/CREATININE (MASS RATIO) IN SER/PLAS 23.5 Normal [facility] Comment on above: Performed By: #### L [id number] #### [facility] ([facility]ER) [address] [place] [address] CONSULTon 09-17-2024 CONSULT Reason For Consult Abdominal pain Referring Provider: [facility] ER History Of Present Illness Saeed Sarabia is a 83 y.o. female presenting with Abdominal Pain; Altered Mental Status. Patient is not at baseline mental status per and daughter at bedside, states she has had AMS for at least 1 day with recent history of UTI for which she just completed antibiotics for. Patient was transferred from [facility], where she had CT scan of [...] was also given Rocephin and Flagyll at [facility] during her ER visit today, prior to transfer. Past Medical History She has a past medical history of Atrial fibrillation (CMS/HCC), CHF (congestive heart failure) (CMS/[facility]), Coronary artery disease, Diabetes mellitus ([facility]), Heart valve disease, Hyperlipidemia, and Hypertension. Surgical [...] (H) 7 (more content not included)... Normal [facility] EDNURSon 09-17-2024 EDNURS Mode of arrival (squ ad #, walk in, police, etc): [facility] Chief complaint(s): abdominal pain, altered mental status Arrival Note (brief scenario, treatment SAFETY SPECIALIST, etc): Pt arrives via [facility] stretcher from [facility] with c/o of abdominal pain and altered mental status x4 days. Per facility report, [facility] did not have a surgery bed available, so pt will be getting surgery at [facility]. Pt was diagnosed with cholelithiasis and [...] pain. Pt denies SOB and CP. Normal [facility] EDPROVon 09-17-2024 EDPROV History of Present Illness Chief Complaint Patient presents with Abdominal Pain Transferred from [facility]; will be getting surgery at [facility] Altered Mental Status Initial evaluation completed by Dr. Vasquez at 7:20 PM. Saeed Sarabia is a 83 y.o. female presenting to the ED with c/o Abdominal Pain, Altered Mental Status. Patient reports via EMS and is a transfer from [place]. Patient reports that she has gallstones and [...] currently on Eliquis. History provided by: Patient lead caregiver used: No Altered Mental Status Associated symptoms: abdominal pain, headaches and nausea Associated symptoms: no vomiting Abdominal Pain Associated symptoms: nausea Associated symptoms: no vomiting No data recorded History Past Medical History: Diagnosis Date Atrial fibrillation (CMS/HCC) CHF (congestive heart failure) ([facility]/HCC) Coronary artery disease Diabetes mellitus (CMS/HCC) Heart [...] signing this emergency patient record, the Emergency Physician/TRAFFIC OR SYSTEM DISPATCHER/PA-C attests that all entries made into the electronic medical record by the scribe prior to the Physician/TRAFFIC OR SYSTEM DISPATCHER/PA-C signature reflect an accurate accounting of the evaluation and care rendered by that Emergency Physician/TRAFFIC OR SYSTEM DISPATCHER/PA-C. The Emergency Physician/TRAFFIC OR SYSTEM DISPATCHER/PA-C assumes full responsibility for those entries. The Emergency Physician/TRAFFIC OR SYSTEM DISPATCHER/PA-C also attests that any patient testing or treatment that was instituted by nursing staff. Sanjeev Vasquez MD 09/17/24 2130 Normal [facility] LIPASEon 09-17-2024 LIPASE (U/L) IN SER/PLAS 27 U/L Normal 11-82 [facility] Comment on above: Performed By: #### L [id number] ####[facility] ([facility])[address] [place] [address] MAGNESIUMon 09-17-2024 Magnesium [Mass/Vol] 1.5 mg/dL Low 1.9-2.7 [facility] Comment on above: Performed By: #### L [id number] ####[facility] ([facility])[address] [place] [address] NM HIDA WO EJECTION FRACTION on 09-17-2024 [...] acute cholecystitis. Electronically signed: Felicita Leal. Normal [facility] PHOSPHORUSon 09-17-2024 Magnesium [Mass/Vol] 3.3 mg/dL Normal 2.5-5.0 [facility] Comment on above: Performed By: #### L [id number] ####[facility] ([facility])[address] [place] [address] POCT GLUCOSE METER UNSOLICIT ED RESULTSon 09-17-2024 Glucose [Mass/Vol] 129 mg/dL High 70-105 [facility] Comment on above: Order Comment: Waive d Testing in the ED is performed under the ED CLIA certificate #[id number]. Result Comment: tloy d Performed By: #### L [id number] #### [facility] RESPIRATORY THERAPY [address] [place] [address] [place] TROPONIN Ion 09-17-2024 Troponin I.cardiac [Mass/Vol] 0.01 ng/mL Normal 0.00-0.04 [facility] Comment on above: Performed By: #### L [id number] #### [facility] ([facility]) [address] [place] [address] URINALYSIS MICROSCOPIC WITH REFLEX CULTUREon 09-17-2024 MUCUS (#/LPF) IN URINE SEDIMENT Occasional Normal None Seen, Occasional, Few [facility] Comment on above: Performed By: #### L [id number] ####[facility] ([facility])[address] [place] [address] RBC (#/HPF) IN URINE SEDIMENT 0-2 Normal None Seen, 0-2 [facility] Comment on above: Performed By: #### L [id number] ####[facility] ([facility])[address] [place] [address] SQUAMOUS EPITHELIAL CELLS (#/LPF) IN URINE SEDIMENT Few Normal None Seen, Occasional, Few [facility] Comment on above: Performed By: #### L [id number] ####[facility] ([facility])[address] [place] [address] WBC (LEUKOCYTE) (#/HPF) IN URINE SEDIMENT 3-5 Abnormal None Seen, 0-2 [facility] Comment on above: Performed By: #### L [id number] ####[facility] ([facility])[address] [place] [address] URINALYSIS WITH REFLEX CULTU REon 09-17-2024 BILIRUBIN, TOTAL PRESENCE IN URINE Negative Normal Negative [facility] Comment on above: Performed By: #### L [id number] #### [facility] ([facility]) [address] [place] [address] Clarity (U) Clear Normal Clear [facility] Comment on above: Performed By: #### L [id number] #### [facility] ([facility]) [address] [place] [address] Color (U) Colorless Normal Colorless, Yellow, Light-Yello w [facility] Comment on above: Performed By: #### L [id number] #### [facility] ([facility]) [address] [place] [address] GLUCOSE (MG/DL) IN URINE Normal Normal Normal [facility] Comment on above: Performed By: #### L [id number] #### [facility] ([facility]) [address] [place] [address] HEMOGLOBIN PRESENCE IN URINE Trace Abnormal Negative [facility] Comment on above: Performed By: #### L [id number] #### [facility] ([facility]) [address] [place] [address] Ketones Ql (U) Trace Abnormal Negative [facility] Comment on above: Performed By: #### L [id number] #### [facility] ([facility]) [address] [place] [address] LEUKOCYTE ESTERASE PRESENCE IN URINE BY TEST STRIP Negative Normal Negative [facility] Comment on above: Performed By: #### L [id number] #### [facility] ([facility]) [address] [place] [address] NITRITE PRESENCE IN URINE Negative Normal Negative [facility] Comment on above: Performed By: #### L [id number] #### [facility] ([facility]) [address] [place] [address] pH (U) 5.0 [pH] Normal 5.0-8.0 [facility] Comment on above: Performed By: #### L [id number] #### [facility] ([facility]) [address] [place] [address] Protein (U) [Mass/Vol] Negative Normal [facility] Comment on above: Performed By: #### L [id number] #### [facility] ([facility]) [address] [place] [address] Specific gravity (U) [Rel density] 1.026 Normal 1.010-1.030 [facility] Comment on above: Performed By: #### L [id number] #### [facility] [address] [place] [address] UROBILINOGEN (MG/DL) IN URINE Normal Normal Normal [facility] Comment on above: Performed By: #### L [id number] #### [facility] (BEAKER) [address] [place] [address] VENOUS BLOOD GAS WITH IONIZE D CALCIUMon 09-17-2024 Base excess Calc (BldV) [Moles/Vol] -4.9000 mmol/L Normal [facility] Comment on above: Performed By: #### L [id number] #### [facility] RESPIRATORY THERAPY [address] [place] [address] [facility] CALCIUM IONIZED (MMOL/L) IN BLOOD 1.04 mmol/L Low 1.15-1.33 [facility] Comment on above: Performed By: #### L [id number] #### [facility] RESPIRATORY THERAPY [address] [place] [address] [facility] CO2 (BldV) [Partial pressure] 26 mm[Hg] Low 40-50 [facility] Comment on above: Performed By: #### L [id number] #### [facility] RESPIRATORY THERAPY [address] [place] [address] [facility] HCO3 (Bld) [Moles/Vol] 17.7 mmol/L Normal [facility] Comment on above: Performed By: #### L [id number] #### [facility] RESPIRATORY THERAPY [address] [place] [address] [facility] Oxygen (BldV) [Partial pressure] 147 mm[Hg] High 35-45 [facility] Comment on above: Performed By: #### L [id number] #### [facility] RESPIRATORY THERAPY [address] [place] [address] [facility] OXYGEN SATURATION (%) IN VENOUS BLOOD 99.8 % High 65.0-75.0 [facility] Comment on above: Performed By: #### L [id number] #### [facility] RESPIRATORY THERAPY [address] [place] [address] [facility] PH OF VENOUS BLOOD 7.44 High 7.31-7.41 [facility] Comment on above: Performed By: #### L [id number] #### [facility] RESPIRATORY THERAPY [address] [place] [address] [facility] ALL BASIC METABOLIC PANELon 11-21-2024 Anion gap [Moles/Vol] 15.8 mmol/L NO [facility] Calcium [Mass/Vol] 9.8 mg/dL 8.5 - 10. 1 mg/dL [facility] Chloride [Moles/Vol] 103 mmol/L 98 - 10 7 mmol/L [facility] CO2 [Moles/Vol] 26.4 mmol/L 21.0 - 32.0 mmol/L [facility] Creatinine [Mass/Vol] 1.07 mg/dL High 0.55 - 1.02 mg/dL [facility] GFR/1.73 sq M.predicted CKD-EPI (S/P/Bld) [Vol rate/Area] 59 Low >=60 mL/min/1.73 m 2 [facility] Glucose [Mass/Vol] 266 mg/dL High 74 - 106 mg/dL [facility] Interpretation and review of laboratory results Abnormal [facility] Potassium [Moles/Vol] 4.2 mmol/L 3.5 - 5.1 mmol/L [facility] Sodium [Moles/Vol] 141 mmol/L 136 - 145 mmol/L [facility] TBH EGFR-NON AF INDIAN 49 Low >=6 0 mL/min/1.73 m 2 [facility] Urea nitrogen [Mass/Vol] 21 mg/dL High 7.0 - 18.0 mg/dL [facility] Urea nitrogen/Creatinine [Mass ratio] 19.6 mg/mg [facility] ALL BASIC METABOLIC PANELon 08-20-2024 Anion gap [Moles/Vol] 15.7 mmol/L NO [facility] Calcium [Mass/Vol] 9.5 mg/dL 8.5 - 10. 1 mg/dL [facility] Chloride [Moles/Vol] 108 mmol/L High 98 - 10 7 mmol/L [facility] CO2 [Moles/Vol] 27.8 mmol/L 21.0 - 32.0 mmol/L [facility] Creatinine [Mass/Vol] 0.85 mg/dL 0.55 - 1.02 mg/dL [facility] GFR/1.73 sq M.predicted CKD-EPI (S/P/Bld) [Vol rate/Area] >60 >=60 mL/min/1.73 m 2 [facility] Glucose [Mass/Vol] 118 mg/dL High 74 - 106 mg/dL [facility] Interpretation and review of laboratory results Abnormal [facility] Potassium [Moles/Vol] 4.5 mmol/L 3.5 - 5.1 mmol/L [facility] Sodium [Moles/Vol] 147 mmol/L High 136 - 145 mmol/L [facility] TBH EGFR-NON AF INDIAN >60 >=6 0 mL/min/1.73 m 2 [facility] Urea nitrogen [Mass/Vol] 14 mg/dL 7.0 - 18.0 mg/dL [facility] Urea nitrogen/Creatinine [Mass ratio] 16.5 mg/mg [facility] ALL CBC WITH AUTO DIFFon BASOPHILS ABSOLUTE AUTO 0 N [facility] Basophils/100 WBC (Bld) 0.3 % 0.2 - 2.0 % [facility] Eosinophils/100 WBC (Bld) 0.7 % Low 0.9 - 7.0 % [facility] Erythrocyte distribution width (RBC) [Ratio] 13.6 % 11.0 - 15.0 % [facility] Hematocrit (Bld) [Volume fraction] 40 % 36.0 - 48.0 % [facility] Hemoglobin (Bld) [Mass/Vol] 12.5 g/dL 12.0 - 16.0 g/dL [facility] IMMATURE GRANULOCYTES ABS AUTO 0.01 [facility] Immature granulocytes/100 WBC (Bld) 0.1 % 0.0 - 0.5 % [facility] Interpretation and review of laboratory results Abnormal [facility] LYMPHOCYTES ABSOLUTE AUTO 2.1 [facility] Lymphocytes/100 WBC (Bld) 31.5 % 20.5 - 60.0 % [facility] MCH (RBC) [Entitic mass] 30 pg 26. 7 - 34.0 pg [facility] MCHC (RBC) [Mass/Vol] 31.3 g/dL 29.9 - 35.2 g/dL [facility] MCV (RBC) [Entitic vol] 95.9 fL 81.0 - 99.0 fL [facility] MONOCYTES ABSOLUTE AUTO 0.6 N [facility] Monocytes/100 WBC (Bld) 8.5 % 1.7 - 12.0 % [facility] NEUTROPHILS ABSOLUTE AUTO 3.9 [facility] Neutrophils/100 WBC (Bld) 58.9 % 43.0 - 75.0 % [facility] Platelet mean volume (Bld) [Entitic vol] 9.9 fL 9.5 - 13.5 fL [facility] EO # 0.1 [facility] PLT 263 [facility] RBC 4.17 Low [facility] WBC 6.7 [facility] HbA1c (Bld) [Mass fraction]o n 08-20-2024 Interpretation and review of laboratory results Normal Replaced by [facility] - Hematology and Cell countson 08-20-2024 HbA1c (Bld) [Mass fraction] 6/1% [facility] 36on 02-19-2024 36 Regarding echo from 02/15/2024: MD Cara Bansal MA Her echo is within normal limits. Patient informed. Normal [facility] Office Visiton 02-02-2024 Follow-up visit [id number] Saeed Sarabia 1940 F Date Provider Department Center 02/02/2024 367-JOSE ROBERSON [facility] Family History Problem Relation Age of Onset Heart attack Mother Coronary artery disease Mother Heart attack Father Coronary artery disease Father Multiple sclerosis Sister Family Status - Relation Status Age at Mother Father Sister Level of Service:900[address] [place] OFFICE/OUTPATIENT ESTABLISHED MOD MDM 30 MIN Reason for Visit and Comments: Follow-up [268263] - 6 months Normal [facility] FREE T3on 08-15-2022 FREE T3 2.11 pg/mlL Critically low 2.18-3.[address] [facility] Comment on above: Performed By: #### F T3, TSH, CMP, LIPID ####[facility] [address] [place], [place] [address]DtDr. Adilene Koo FREE T4on 08-15-2022 Free T4 [Mass/Vol] 1.13 ng/dL Normal 0.76-1.46 [facility] Comment on above: Performed By: #### F T4 #### [facility] [address] [place], [place] [address] Dr. Adilene Koo GLYCOHEMOGLOBIN A1Con 2021 ADA RECOMMENDATION SEE BELOW Normal [facility] Comment on above: Result Comment: ADA RECOMMENDED LIMIT 4.0 - 6.0 ADA THERAPEUTIC TARGET < 7.0 ACTION SUGGESTED > 7.0 Performed By: #### A 1C #### [facility] [address] [place], [place] [address] Dr. Adilene Koo Glucose [Mass/Vol] 137 mg/dL Normal [facility] Comment on above: Performed By: #### A 1C #### [facility] [address] [place] [id number] Adilene Koo HbA1c (Bld) [Mass fraction] 6.4 % Critically high 4.5-6.2 [facility] Comment on above: Performed By: #### A 1C #### [facility] [address] [place] [address] [address] Adilene Koo LIPID PROFILEon 08-15-2022 CHOL-HDL RATIO NORM SEE BELOW Normal [facility] Comment on above: Result Comment: 3.3 - 4.4 LOW RISK 4.4 - 7.1 AVERAGE RISK 7.1 - 11.0 MODERATE RISK >11.0 HIGH RISK Performed By: #### F T3, TSH, CMP, LIPID ####[facility] [address] [place] [id number]. Adilene Koo Cholesterol [Mass/Vol] 127 mg/dL Normal <=200 [facility] Comment on above: Performed By: #### F T3, TSH, CMP, LIPID ####[facility] [address] [place] [id number] Koo Cholesterol in HDL [Mass/Vol] 48 mg/dL Normal 40-60 [facility] Comment on above: Performed By: #### F T3, TSH, CMP, LIPID ####[facility] [address] [place] [id number]. Adilene Koo Cholesterol in LDL [Mass/Vol] 60.2 mg/dL Normal [facility] Comment on above: Performed By: #### F T3, TSH, CMP, LIPID ####[facility] [address] [place] [address]Dr. Adilene Koo Cholesterol.total/Choles terol in HDL [Mass ratio] 2.6 {ratio} Normal [facility] Comment on above: Performed By: #### F T3, TSH, CMP, LIPID ####[facility] [address] [place] [id number]. Adilene Koo HDL NORMAL > or = 60 mg/dl - LO W CARDIOVASCULAR RISK <40 mg/dl - HIGH CARDIOVASCULAR RISK Normal [facility] Comment on above: Performed By: #### F T3, TSH, CMP, LIPID ####[facility] [address] [place] [id number]. Adilene Koo LDL CALC NORMAL SEE BELOW Normal [facility] Comment on above: Result Comment: <100 mg/dl OPTIMAL 100 - 129 mg/dl NEAR OR ABOVE OPTIMAL 130 - 159 mg/dl BORDERLINE HIGH 160 - 189 mg/dl HIGH >190 mg/dl VERY HIGH Performed By: #### F T3, TSH, CMP, LIPID ####[facility] [address] [place] [address]DrKen Koo Triglyceride [Mass/Vol] 94 mg/dL Normal <=[address] [facility] Comment on above: Performed By: #### F T3, TSH, CMP, LIPID ####[facility] [address] [place] [address]Dr. Adilene Koo VLDL CALC 18.8 mg/dL Normal [facility] Comment on above: Performed By: #### F T3, TSH, CMP, LIPID ####[facility] [address] [place] [address]DrKen Koo MICROALBUMIN, RAND URon 11-0 mALB 1.6 mg/L Normal <=30.0 [facility] Comment on above: Performed By: #### M ALBR #### [facility] [address] [place] [address] [address] Adilene Koo PROF 14(COMP METB)on 022 Albumin [Mass/Vol] 3.2 g/dL Critically low 3.4-5.0 [facility] Comment on above: Performed By: #### F T3, TSH, CMP, LIPID ####[facility] [address] [place] [address]Dr. Adilene Koo Albumin/Globulin [Mass ratio] 0.9 {ratio} Normal [facility] Comment on above: Performed By: #### F T3, TSH, CMP, LIPID ####[facility] [address] [place] [address]Dr. Adilene Koo ALP [Catalytic activity/Vol] 59 U/L Normal 46-116 [facility] Comment on above: Performed By: #### F T3, TSH, CMP, LIPID ####[facility] [address] [place] [address]Dr. Adilene Koo ALT [Catalytic activity/Vol] 19 U/L Normal 14-59 [facility] Comment on above: Performed By: #### F T3, TSH, CMP, LIPID ####[facility] [address] [place] [address]Dr. Adilene Koo Anion gap [Moles/Vol] 10.8 mmol/L Normal [facility] Comment on above: Performed By: #### F T3, TSH, CMP, LIPID ####[facility] [address] [place] [address]Dr. Adilene Koo AST [Catalytic activity/Vol] 18 U/L Normal 15-37 [facility] Comment on above: Performed By: #### F T3, TSH, CMP, LIPID ####[facility] [address] [place], [place] [address]Dr. Adilene Koo Bilirubin [Mass/Vol] 0.4 mg/dL Normal 0.2-1.0 [facility] Comment on above: Performed By: #### F T3, TSH, CMP, LIPID ####[facility] [address] [place] [address]Dr. Adilene Koo Calcium [Mass/Vol] 9.4 mg/dL Normal 8.5-10.1 [facility] Comment on above: Performed By: #### F T3, TSH, CMP, LIPID ####[facility] [address] [place], [place] [address]Dr. Adilene Koo Chloride [Moles/Vol] 106 mmol/L Normal 98-107 [facility] Comment on above: Performed By: #### F T3, TSH, CMP, LIPID ####[facility] [address] [place] [address]Dr. Adilene Koo CO2 [Moles/Vol] 28.9 mmol/L Normal 21.0-32.0 [facility] Comment on above: Performed By: #### F T3, TSH, CMP, LIPID ####[facility] [address] [place] [address]Dr. Adilene Koo Creatinine [Mass/Vol] 0.73 mg/dL Normal 0.55-1.02 [facility] Comment on above: Performed By: #### F T3, TSH, CMP, LIPID ####[facility] [address] [place] [address]Dr. Adilene Koo EGFR-AF INDIAN >60 Normal >=60 [facility] Comment on above: Performed By: #### F T3, TSH, CMP, LIPID ####[facility] [address] [place] [address]Dr. Adilene Koo EGFR-NON AF INDIAN >60 Normal >=60 [facility] Comment on above: Performed By: #### F T3, TSH, CMP, LIPID ####[facility] [address] [place] [address]Dr. Adilene Koo Globulin (S) [Mass/Vol] 3.6 g/dL Normal [facility] Comment on above: Performed By: #### F T3, TSH, CMP, LIPID ####[facility] [address] [place] [address]Dr. Adilene Koo Glucose [Mass/Vol] 94 mg/dL Normal 74-106 [facility] Comment on above: Performed By: #### F T3, TSH, CMP, LIPID ####[facility] [address] [place] [address]Dr. Adilene Koo Potassium [Moles/Vol] 4.7 mmol/L Normal 3.5-5.1 [facility] Comment on above: Performed By: #### F T3, TSH, CMP, LIPID ####[facility] [address] [place] [address]Dr. Adilene Koo Protein [Mass/Vol] 6.8 g/dL Normal 6.4-8.2 [facility] Comment on above: Performed By: #### F T3, TSH, CMP, LIPID ####[facility] [address] [place] [id number]. Adilene Koo Sodium [Moles/Vol] 141 mmol/L Normal 136-145 [facility] Comment on above: Performed By: #### F T3, TSH, CMP, LIPID ####[facility] [address] [place] [address]Dr. Adilene Koo Urea nitrogen [Mass/Vol] 15.0 mg/dL Normal 7.0-18.0 [facility] Comment on above: Performed By: #### F T3, TSH, CMP, LIPID ####[facility] [address] [place] [address]Dr. Adilene Koo Urea nitrogen/Creatinine [Mass ratio] 20.5 mg/mg Normal [facility] Comment on above: Performed By: #### F T3, TSH, CMP, LIPID ####[facility] [address] [place] [address]Dr. Adilene Koo TSHon 08-15-2022 TSH 0.219 uIU/mL Critically low 0.358-3.740 [facility] Comment on above: Performed By: #### F T3, TSH, CMP, LIPID ####[facility] [address] [place] [address]Dr. Adilene Koo UA RANDOM W/MICROSCOPICon BACTERIA NONE SEEN Normal NONE SEEN [facility] Comment on above: Performed By: #### U AMIC #### [facility] [address] [address] [address] Adilene Koo Bilirubin Ql (U) Negative Normal NEGATIVE [facility] Comment on above: Performed By: #### U AMIC #### [facility] [address] [address] [address] Adilene Koo CAST NONE SEEN Normal NONE SEEN [facility] Comment on above: Performed By: #### U AMIC #### [facility] [address] [address] [address] Adilene Koo Clarity (U) CLEAR Normal CLEAR [facility] Comment on above: Performed By: #### U AMIC #### [facility] [address] [address] [address] Adilene Koo Color (U) LT. YELLOW Normal YELLOW [facility] Comment on above: Performed By: #### U AMIC #### [facility] [address] [address] [address] Adilene Koo Crystals LM Nom (Urine sed) NONE SEEN Normal NONE SEEN [facility] Comment on above: Performed By: #### U AMIC #### [facility] [address] [address] [address] Adilene Koo Epithelial cells LM Ql (Urine sed) RARE Normal NONE SEEN /RARE [facility] Comment on above: Performed By: #### U AMIC #### [facility] [address] [address] [address] Adilene Koo Glucose Ql (U) Negative Normal NEGATIVE [facility] Comment on above: Performed By: #### U AMIC #### [facility] [address] [address] [address] Adilene Koo Hemoglobin Ql (U) Negative Normal NEGATIVE [facility] Comment on above: Performed By: #### U AMIC #### [facility] [address] [address] [address] Adilene Koo Ketones Ql (U) Negative Normal NEGATIVE [facility] Comment on above: Performed By: #### U AMIC #### [facility] [address] [address] [address] Adilene Koo LEUKOCYTES Negative Normal NEGATIVE [facility] Comment on above: Performed By: #### U AMIC #### [facility] [address] [address] [address] Adilene Koo MUCOUS NONE SEEN Normal NONE SEEN [facility] Comment on above: Performed By: #### U AMIC #### [facility] [address] [address] [address] Adilene Koo Nitrite Ql (U) Negative Normal NEGATIVE [facility] Comment on above: Performed By: #### U AMIC #### [facility] [address] [address] [address] Adilene Koo pH (U) 6.0 [pH] Normal 5-9 [facility] Comment on above: Performed By: #### U AMIC #### [facility] [address] [address] [address] Adilene Koo RBC 0-2 Normal 0-2 [facility] Comment on above: Performed By: #### U AMIC #### [facility] [address] [address] [address] Adilene Koo SPEC GRAVITY 1.020 Normal 1.005-<=1.0 25 [facility] Comment on above: Performed By: #### U AMIC #### [facility] [address] [address] [address] Adilene Koo UA PROTEIN Negative Normal NEGATIVE/ TRACE [facility] Comment on above: Performed By: #### U AMIC #### [facility] [address] [address] [address] Adilene Koo Urobilinogen Qn (U) 0.2 {Juan'U}/dL Normal 0.2 - 1. 0 [facility] Comment on above: Performed By: #### U AMIC #### [facility] [address] [address] [address] Adilene Koo WBC 0-2 Abnormal NONE SEEN [facility] Comment on above: Performed By: #### U AMIC #### [facility] [id number] Adilene Koo Glucose Glucometer ([facility]) [M ass/Vol]Ordered By: Kingston Gao on 04-15-2022 Glucose [Mass/Vol] 112 mg/dL [facility] Comment on above: Random Glucose Refer ence Range is dependent on time and content of last meal. Glucose of more than 200 mg/dL in a nonstressed, ambulatory subject supports the diagnosis of Diabetes Mellitus. Glucose Poct Glucometerson 0 04-15-2022 Commemt1 Glu2: Cleaned Meter Normal [facility] Comment on above: Result Comment: PERF ORMED BY: [facility] [address] [place] [address] PATHOLOGIST GLASS TECHNICIAN/INSTALLER GUIDO ELIZALDE M.D. Performed By: #### G INOCENTE #### Point of Care testing , Glucose [Mass/Vol] 112 mg/dL Normal [facility] Comment on above: Result Comment: [place] [facility] Glucose Reference Range is dependent on time and content of last meal. Glucose of more than 200 mg/dL in a nonstressed, ambulatory subject supports the diagnosis of Diabetes Mellitus. Performed By: #### G LULS #### Point of Care testing , No Panel InformationOrdered By: Kingston Gao on 04-15-2022 Bedside Glucose Comment Glu2: cleaned meter [facility] Glucose Poct Glucometerson 0 04-14-2022 Commemt1 Glu2: Cleaned Meter [facility] Comment on above: Result Comment: PERF ORMED BY: [place] [address] PATHOLOGIST GLASS TECHNICIAN/INSTALLER GUIDO ELIZALDE M.D. Performed By: #### C BC, PT, PTT, CMP #### [facility] [address] [place], [place] [id number] [facility] Glucose [Mass/Vol] 116 mg/dL Normal [facility] Comment on above: Result Comment: [place] om Glucose Reference Range is dependent on time and content of last meal. Glucose of more than 200 mg/dL in a nonstressed, ambulatory subject supports the diagnosis of Diabetes Mellitus. Performed By: #### C BC, PT, PTT, CMP #### [facility] [address] [place] [address] [place] Commemt1 Glu2: Cleaned Meter [facility] Comment on above: Result Comment: PERF ORMED BY: [facility] [address] [place] [address] PATHOLOGIST GLASS TECHNICIAN/INSTALLER GUIDO ELIZALDE M.D. Performed By: #### C BC, PT, PTT, CMP #### [facility] [address] [place] [id number] [facility] Glucose [Mass/Vol] 107 mg/dL Normal [facility] Comment on above: Result Comment: [place] om Glucose Reference Range is dependent on time and content of last meal. Glucose of more than 200 mg/dL in a nonstressed, ambulatory subject supports the diagnosis of Diabetes Mellitus. Performed By: #### C BC, PT, PTT, CMP #### [facility] [address] [place], [place] [id number] [facility] Glucose Poct Glucometerson 0 04-13-2022 Commemt1 Glu2: Cleaned Meter [facility] Comment on above: Result Comment: PERF ORMED BY: [place] [address] PATHOLOGIST GLASS TECHNICIAN/INSTALLER GUIDO ELIZALDE M.D. Performed By: #### G LULS #### Point of Care testing , Glucose [Mass/Vol] 83 mg/dL Normal [facility] Comment on above: Result Comment: [place] om Glucose Reference Range is dependent on time and content of last meal. Glucose of more than 200 mg/dL in a nonstressed, ambulatory subject supports the diagnosis of Diabetes Mellitus. Performed By: #### G LULS #### Point of Care testing , Glucose [Mass/Vol] 76 mg/dL Normal [facility] Comment on above: Result Comment: [place] [facility] Glucose Reference Range is dependent on time and content of last meal. Glucose of more than 200 mg/dL in a nonstressed, ambulatory subject supports the diagnosis of Diabetes Mellitus. PERFORMED BY: [place] [address] PATHOLOGIST GLASS TECHNICIAN/INSTALLER GUIDO ELIZALDE M.D. Performed By: #### C BC, PT, PTT, CMP #### [facility] [address] [place], [place] [id number] [facility] Glucose Poct Glucometerson 0 04-12-2022 Commemt1 Glu2: Cleaned Meter [facility] Comment on above: Result Comment: PERF ORMED BY: [place] [address] PATHOLOGIST GLASS TECHNICIAN/INSTALLER GUIDO ELIZALDE M.D. Performed By: #### C BC, PT, PTT, CMP #### [place] [address] [place] Glucose [Mass/Vol] 238 mg/dL Normal [facility] Comment on above: Result Comment: [place] om Glucose Reference Range is dependent on time and content of last meal. Glucose of more than 200 mg/dL in a nonstressed, ambulatory subject supports the diagnosis of Diabetes Mellitus. Performed By: #### C BC, PT, PTT, CMP #### [address] Glucose [Mass/Vol] 86 mg/dL Normal [facility] Comment on above: Result Comment: [place] [facility] Glucose Reference Range is dependent on time and content of last meal. Glucose of more than 200 mg/dL in a nonstressed, ambulatory subject supports the diagnosis of Diabetes Mellitus. PERFORMED BY: [place] [address] PATHOLOGIST GLASS TECHNICIAN/INSTALLER GUIDO ELIZALDE M.D. Performed By: #### G LULS #### Point of Care testing , Glucose Poct Glucometerson 0 04-11-2022 Commemt1 Glu2: Cleaned Meter Normal [facility] Comment on above: Result Comment: PERF ORMED BY: [place] [address] PATHOLOGIST GLASS TECHNICIAN/INSTALLER GUIDO ELIZALDE M.D. Performed By: #### G LULS #### Point of Care testing , Glucose [Mass/Vol] 123 mg/dL Normal [facility] Comment on above: Result Comment: [place] om Glucose Reference Range is dependent on time and content of last meal. Glucose of more than 200 mg/dL in a nonstressed, ambulatory subject supports the diagnosis of Diabetes Mellitus. Performed By: #### G LULS #### Point of Care testing , Glucose [Mass/Vol] 107 mg/dL Normal [facility] Comment on above: Result Comment: [place] om Glucose Reference Range is dependent on time and content of last meal. Glucose of more than 200 mg/dL in a nonstressed, ambulatory subject supports the diagnosis of Diabetes Mellitus. PERFORMED BY: [place] [address] PATHOLOGIST GLASS TECHNICIAN/INSTALLER GUIDO ELIZALDE M.D. Performed By: #### G LULS #### Point of Care testing , Glucose Poct Glucometerson 0 04-10-2022 Glucose [Mass/Vol] 100 mg/dL Normal [facility] Comment on above: Result Comment: [facility] Glucose Reference Range is dependent on time and content of last meal. Glucose of more than 200 mg/dL in a nonstressed, ambulatory subject supports the diagnosis of Diabetes Mellitus. PERFORMED BY: [facility] [address] [place] [phone] PATHOLOGIST GLASS TECHNICIAN/INSTALLER GUIDO ELIZALDE M.D. Performed By: #### G LULS #### Point of Care testing , Glucose [Mass/Vol] 99 mg/dL Normal [facility] Comment on above: Result Comment: [facility] Glucose Reference Range is dependent on time and content of last meal. Glucose of more than 200 mg/dL in a nonstressed, ambulatory subject supports the diagnosis of Diabetes Mellitus. PERFORMED BY: [place] [phone] PATHOLOGIST GLASS TECHNICIAN/INSTALLER GUIDO ELIZALDE M.D. Performed By: #### C BC, PT, PTT, CMP #### [facility] [address] [place] [address] [place] A1C with Estimated Average G luon 04-09-2022 Glucose [Mass/Vol] 163 mg/dL Normal [facility] Comment on above: Result Comment: PERF ORMED BY: [place] [phone] PATHOLOGIST GLASS TECHNICIAN/INSTALLER GUIDO ELIZALDE M.D. Performed By: #### G LULS #### Point of Care testing , HbA1c (Bld) [Mass fraction] 7.3 % High 4.3-5.6 [facility] Comment on above: Result Comment: Incr eased risk for diabetes: 5.7 - 6.4 diabetes: >6.4 glycemic control for adults with diabetes: <7.0 Performed By: #### G LULS #### Point of Care testing , Cholesterol [Mass/volume] in Serum or PlasmaOrdered By: Justyn Spann on 04-09-2022 Cholesterol [Mass/Vol] 128 mg/dL 140-200 [facility] Comment on above: Chol less than 200 m g/dl low risk Chol 201-239 mg/dl borderline risk Chol 240 mg/dl and greater high risk Cholesterol in LDL Calc [Mas s/Vol]Ordered By: Justyn Spann on 04-09-2022 Cholesterol in LDL [Mass/Vol] 68 mg/dL 0-100 [facility] Comment on above: LDL ATP III CLASSIFI CATION LDL less than 100 mg/dL Optimal LDL 100-129 mg/dL Near or above optimal LDL 130-159 mg/dL Borderline high LDL 160-189 mg/dL High LDL greater than 189 mg/dL Very high Cholesterol in VLDL Calc [Ma ss/Vol]Ordered By: Justyn Spann on 04-09-2022 Cholesterol in VLDL [Mass/Vol] 22 mg/dL [facility] Glucose Poct Glucometerson 0 04-09-2022 Commemt1 Glu2: Cleaned Meter [facility] Comment on above: Result Comment: PERF ORMED BY: [facility] [address] [place] [address] PATHOLOGIST GLASS TECHNICIAN/INSTALLER GUIDO ELIZALDE M.D. Performed By: #### G LULS #### Point of Care testing , Glucose [Mass/Vol] 164 mg/dL [facility] Comment on above: Result Comment: [place] Glucose Reference Range is dependent on time and content of last meal. Glucose of more than 200 mg/dL in a nonstressed, ambulatory subject supports the diagnosis of Diabetes Mellitus. Performed By: #### G LULS #### Point of Care testing , Commemt1 Glu2: Cleaned Meter [facility] Comment on above: Result Comment: PERF ORMED BY: [facility] [address] [place] [address] PATHOLOGIST GLASS TECHNICIAN/INSTALLER GUIDO ELIZALDE M.D. Performed By: #### C BC, PT, PTT, CMP #### [address] Glucose [Mass/Vol] 152 mg/dL Normal [facility] Comment on above: Result Comment: [place] Glucose Reference Range is dependent on time and content of last meal. Glucose of more than 200 mg/dL in a nonstressed, ambulatory subject supports the diagnosis of Diabetes Mellitus. Performed By: #### C BC, PT, PTT, CMP #### [facility] [address] Glucose mean value [Mass/vol ume] in Blood Estimated from glycated hemoglobinOrdered By: Justyn Spann on 04-09-2022 Average glucose Estimated from glycated hemoglobin (Bld) [Mass/Vol] 163 mg/dL [facility] Hemoglobin A1c percentageOrd ered By: Justyn Spann on 04-09-2022 HbA1c (Bld) [Mass fraction] 7.3 % 4.3-5.6 [facility] Comment on above: Increased risk for d iabetes: 5.7 - 6.4 diabetes: >6.4 glycemic control for adults with diabetes: <7.0 Lipid Panelon 04-09-2022 Cholesterol [Mass/Vol] 128 mg/dL Low 140-200 [facility] Comment on above: Result Comment: Chol less than 200 mg/dl low risk Chol 201-239 mg/dl borderline risk Chol 240 mg/dl and greater high risk Performed By: #### G LULS #### Point of Care testing , Cholesterol in HDL [Mass/Vol] 37 mg/dL Normal 35-85 [facility] Comment on above: Result Comment: HDL CHOL ATP-III CLASSIFICATION Cardiovascular Risk HDL > or equal to 60 mg/dL LOW HDL < 40 mg/dL HIGH Performed By: #### G LULS #### Point of Care testing , Cholesterol.total/Choles terol in HDL [Mass ratio] 3.5 {ratio} Normal <5.0 [facility] Comment on above: Result Comment: PERF ORMED BY: [facility] [address] [place] [address] PATHOLOGIST GLASS TECHNICIAN/INSTALLER GUIDO ELIZALDE M.D. Performed By: #### G LULS #### Point of Care testing , LDL Cholesterol,Calculated 68 mg/dL Normal 0-100 [facility] Comment on above: Result Comment: LDL ATP III CLASSIFICATION LDL less than 100 mg/dL Optimal LDL 100-129 mg/dL Near or above optimal LDL 130-159 mg/dL Borderline high LDL 160-189 mg/dL High LDL greater than 189 mg/dL Very high Performed By: #### G LULS #### Point of Care testing , Triglyceride w/Reflex 114 mg/dL Normal 35-149 [facility] Comment on above: Result Comment: TRIG ATP III CLASSIFICATION TRIG less than 150 mg/dL Normal TRIG 150-199 mg/dL Borderline high TRIG 200-500 mg/dL High TRIG greater than 500 mg/dL Very high Standard traceable to the Center for Disease Conrtrol and Prevention (CDC) test method. Performed By: #### G LULS #### Point of Care testing , VLDL CHOLESTEROL 22 mg/dL Normal [facility] Comment on above: Performed By: #### G LULS #### Point of Care testing , Serum or plasma high density lipoprotein (HDL) cholesterol measurementOrdered By: Justyn Spann on 04-09-2022 Cholesterol in HDL [Mass/Vol] 37 mg/dL 35-85 [facility] Comment on above: HDL CHOL ATP-III CLA SSIFICATION Cardiovascular Risk HDL > or equal to 60 mg/dL LOW HDL < 40 mg/dL HIGH Serum or plasma total choles terol/high density lipoprotein (HDL) cholesterol mass ratOrdered By: Justyn Spann on 04-09-2022 Cholesterol.total/Choles terol in HDL [Mass ratio] 3.5 {ratio} <5.0 [facility] Triglyceride [Mass/volume] i n Serum or PlasmaOrdered By: Justyn Spann on 04-09-2022 Triglyceride [Mass/Vol] 114 mg/dL 35-149 [facility] Comment on above: TRIG ATP III CLASSIF ICATION TRIG less than 150 mg/dL Normal TRIG 150-199 mg/dL Borderline high TRIG 200-500 mg/dL High TRIG greater than 500 mg/dL Very high Standard traceable to the Center for Disease Conrtrol and Prevention (CDC) test method. Albumin [Mass/volume] in Ser um or PlasmaOrdered By: Kingston Gao on 04-08-2022 Albumin [Mass/Vol] 2.6 g/dL Low 3.2-5.5 [facility] Comment on above: Performed By: #### C BC, PT, PTT, CMP #### [address] Automated basophil %Ordered By: Kingston Pooleey on 04-08-2022 Basophils/100 WBC (Bld) 0.6 % Normal . [facility] Comment on above: Performed By: #### C BC, PT, PTT, CMP #### [address] Automated basophil countOrde red By: Kingston Murray on 04-08-2022 Basophils (Bld) [#/Vol] 0.0 10*3/uL Normal 0.0-0.2 [facility] Comment on above: Result Comment: PERF ORMED BY: [place] [address] PATHOLOGIST GLASS TECHNICIAN/INSTALLER GUIDO ELIZALDE M.D. Performed By: #### C BC, PT, PTT, CMP #### [address] Automated blood lymphocyte c ount (number/volume)Ordered By: Kingston Gao on 04-08-2022 Lymphocytes (Bld) [#/Vol] 2.0 10*3/uL Normal 1.00-4.8 [facility] Comment on above: Performed By: #### C BC, PT, PTT, CMP #### [address] Automated blood lymphocyte c ount as percentage of total leukocytesOrdered By: Kingston Gao on 04-08-2022 Lymphocytes/100 WBC (Bld) 26.1 % Normal . [facility] Comment on above: Performed By: #### C BC, PT, PTT, CMP #### [address] Automated blood monocyte cou ntOrdered By: Kingston Gao on 04-08-2022 Monocytes (Bld) [#/Vol] 0.7 10*3/uL Normal 0.0-0.8 [facility] Comment on above: Performed By: #### C BC, PT, PTT, CMP #### [place] [address] [place] Automated blood platelet cou nt (count/volume)Ordered By: Kingston Gao on 04-08-2022 Platelets (Bld) [#/Vol] 285 10*3/uL Normal 150-450 [facility] Comment on above: Performed By: #### C BC, PT, PTT, CMP #### [address] Automated blood platelet juliana n volume measurementOrdered By: Kingston Gao on 04-08-2022 Platelet mean volume (Bld) [Entitic vol] 8.4 fL Normal 6.3-10.7 [facility] Comment on above: Performed By: #### C BC, PT, PTT, CMP #### [address] Automated eosinophil %Ordere d By: Kingston Gao on 04-08-2022 Eosinophils/100 WBC (Bld) 2.7 % Normal . [facility] Comment on above: Performed By: #### C BC, PT, PTT, CMP #### [address] Automated eosinophil countOr dered By: Kingston Gao on 04-08-2022 Eosinophils (Bld) [#/Vol] 0.2 10*3/uL Normal 0.0-0.45 [facility] Comment on above: Performed By: #### C BC, PT, PTT, CMP #### [address] Automated erythrocyte distri bution width ratioOrdered By: Kingston Gao on 04-08-2022 Erythrocyte distribution width (RBC) [Ratio] 14.0 % Normal 11.9-15.3 [facility] Comment on above: Performed By: #### C BC, PT, PTT, CMP #### [address] Automated erythrocyte mean c orpuscular hemoglobin (mass per erythrocyte)Ordered By: Kignston Gao on 04-08-2022 MCH (RBC) [Entitic mass] 30.4 pg Normal 24.7-34.3 [facility] Comment on above: Performed By: #### C BC, PT, PTT, CMP #### [address] Automated erythrocyte mean c orpuscular volumeOrdered By: Kingston Gao on 04-08-2022 MCV (RBC) [Entitic vol] 92.2 fL Normal 80-100 [facility] Comment on above: Performed By: #### C BC, PT, PTT, CMP #### [address] Automated monocyte %Ordered By: Kingston Gao on 04-08-2022 Monocytes/100 WBC (Bld) 9.4 % Normal . [facility] Comment on above: Performed By: #### C BC, PT, PTT, CMP #### [address] [address] Automated neutrophil %Ordere d By: Kingston Gao on 04-08-2022 Neutrophils/100 WBC (Bld) 61.2 % Normal . [facility] Comment on above: Performed By: #### C BC, PT, PTT, CMP #### [address] Blood erythrocytes automated count (number/volume)Ordered By: Kingston Gao on 04-08-2022 RBC (Bld) [#/Vol] 3.69 10*6/uL Normal 3.60-5.00 [facility] Comment on above: Performed By: #### C BC, PT, PTT, CMP #### [address] Blood hemoglobin measurement (mass/volume)Ordered By: Kingston Gao on 04-08-2022 Hemoglobin (Bld) [Mass/Vol] 11.2 g/dL Low 11.8-15.4 [facility] Comment on above: Performed By: #### C BC, PT, PTT, CMP #### [address] Blood leukocytes automated c ount (number/volume)Ordered By: Kingston Gao on 04-08-2022 WBC (Bld) [#/Vol] 7.6 10*3/uL Normal 4.5-11.0 [facility] Comment on above: Performed By: #### C BC, PT, PTT, CMP #### [address] Blood neutrophil count by au tomated method (number/volume)Ordered By: Kingston Gao on 04-08-2022 Neutrophils (Bld) [#/Vol] 4.7 10*3/uL Normal 1.8-7.7 [facility] Comment on above: Performed By: #### C BC, PT, PTT, CMP #### [address] Complete Blood Count Auto Di ffon 04-08-2022 Mean Corpuscular HGB Conc 33.0 g/dL Normal 32.0-35.0 [facility] Comment on above: Performed By: #### C BC, PT, PTT, CMP #### [address] Complete Blood Count Auto Di ffOrdered By: Kingston Gao on 04-08-2022 Nucleated RBC/100 WBC (Bld) [Ratio] 0.1 % Normal 0-0.5 [facility] Comment on above: Performed By: #### C BC, PT, PTT, CMP #### [address] Comprehensive Metabolic Pane sadiq 04-08-2022 ALT [Catalytic activity/Vol] 17 U/L Normal 10-60 [facility] Comment on above: Performed By: #### C BC, PT, PTT, CMP #### [address] Creatinine Clr Calc Pharmacy 57.76 Normal [facility] Comment on above: Performed By: #### C BC, PT, PTT, CMP #### [address] Estimated GFR ( Froylan > 60 Normal [facility] Comment on above: Result Comment: GFR estimated reference range: According to KDOQI guidelines, <60 ml/min/1.73m2 is sufficient to diagnose a patient with chronic kidney disease. Performed By: #### C BC, PT, PTT, CMP #### [facility] [address] [place] [address] Estimated GFR (Non- Am > 60 Normal [facility] Comment on above: Performed By: #### C BC, PT, PTT, CMP #### [address] Estimated glomerular filtrat ion rate (GFR) non- AmericanOrdered By: Kingston Gao on 04-08-2022 GFR/1.73 sq M.predicted among non-blacks MDRD (S/P/Bld) [Vol rate/Area] > 60 mL/Min [facility] Glucose Poct Glucometerson 0 04-08-2022 Glucose [Mass/Vol] 83 mg/dL Normal [facility] Comment on above: Result Comment: [facility] Glucose Reference Range is dependent on time and content of last meal. Glucose of more than 200 mg/dL in a nonstressed, ambulatory subject supports the diagnosis of Diabetes Mellitus. PERFORMED BY: [place] [address] PATHOLOGIST GLASS TECHNICIAN/INSTALLER GUIDO ELIZALDE M.D. Performed By: #### G LULS #### Point of Care testing , Glucose [Mass/Vol] 115 mg/dL Normal [facility] Comment on above: Result Comment: [facility] Glucose Reference Range is dependent on time and content of last meal. Glucose of more than 200 mg/dL in a nonstressed, ambulatory subject supports the diagnosis of Diabetes Mellitus. PERFORMED BY: [place] [address] PATHOLOGIST GLASS TECHNICIAN/INSTALLER GUIDO ELIZLADE M.D. Performed By: #### C BC, PT, PTT, CMP #### [facility] [address] [place] [address] Hematocrit [Volume Fraction] of Blood by Automated countOrdered By: Kingston Gao on 04-08-2022 Hematocrit (Bld) [Volume fraction] 34.0 % Normal 34.0-46.4 [facility] Comment on above: Performed By: #### C BC, PT, PTT, CMP #### [facility] [address] MCHC Auto (RBC) [Mass/Vol]Or dered By: Kingston Gao on 04-08-2022 MCHC (RBC) [Mass/Vol] 33.0 g/dL 32.0-35.0 [facility] No Panel InformationOrdered By: Kingston Gao on 04-08-2022 Estimated GFR () > 60 mL/Min [facility] Comment on above: GFR estimated refere nce range: According to KDOQI guidelines, <60 ml/min/1.73m2 is sufficient to diagnose a patient with chronic kidney disease. Pharmacy Creatinine Clearance (Chem 57.76 [facility] Protein [Mass/volume] in Ser um or PlasmaOrdered By: Kingston Gao on 04-08-2022 Protein [Mass/Vol] 5.6 g/dL Low 6.1-7.9 [facility] Comment on above: Performed By: #### C BC, PT, PTT, CMP #### [facility] [address] Serum globulin measurement b y calculation (mass/volume)Ordered By: Kingston Gao on 04-08-2022 Globulin (S) [Mass/Vol] 3.0 g/dL Normal [facility] Comment on above: Performed By: #### C BC, PT, PTT, CMP #### [facility] [address] Serum or plasma alanine [place] otransferase measurement without P-5'-P (enzymatic activiOrdered By: Kingston Gao on 04-08-2022 ALT No additional P-5'-P [Catalytic activity/Vol] 17 U/L 10-60 [facility] Serum or plasma albumin/glob ulin mass ratioOrdered By: Kingston Gao on 04-08-2022 Albumin/Globulin [Mass ratio] 0.9 {ratio} Normal [facility] Comment on above: Performed By: #### C BC, PT, PTT, CMP #### [address] Serum or plasma alkaline dolly sphatase measurement (enzymatic activity/volume)Ordered By: Kingston Gao on 04-08-2022 ALP [Catalytic activity/Vol] 56 U/L Normal 32-92 [facility] Comment on above: Performed By: #### C BC, PT, PTT, CMP #### [facility] [address] Serum or plasma aspartate am inotransferase measurement (enzymatic activity/volume)Ordered By: Kingston Murray on 04-08-2022 AST [Catalytic activity/Vol] 18 U/L Normal 10-42 [facility] Comment on above: Performed By: #### C BC, PT, PTT, CMP #### [facility] [address] Serum or plasma calcium nakul urement (mass/volume)Ordered By: Kingston Pooleey on 04-08-2022 Calcium [Mass/Vol] 9.2 mg/dL Normal 8.2-10.2 [facility] Comment on above: Performed By: #### C BC, PT, PTT, CMP #### [address] Serum or plasma chloride juliana surement (moles/volume)Ordered By: Kingston Gao on 04-08-2022 Chloride [Moles/Vol] 101 mmol/L Normal 95-114 [facility] Comment on above: Performed By: #### C BC, PT, PTT, CMP #### [address] Serum or plasma creatinine m easurement with calculation of estimated glomerular filtrOrdered By: Kingston Gao on 04-08-2022 Creatinine [Mass/Vol] 0.72 mg/dL Normal 0.44-1.03 [facility] Comment on above: Performed By: #### C BC, PT, PTT, CMP #### [facility] [address] [place] [address] Serum or plasma glucose nakul urement (mass/volume)Ordered By: Kingston Murray on 04-08-2022 Glucose [Mass/Vol] 119 mg/dL High 70-100 [facility] Comment on above: ADA recommended refe rence range Random Glucose Reference Range is dependent on time and content of last meal. Glucose of more than 200 mg/dL in a nonstressed, ambulatory subject supports the diagnosis of Diabetes Mellitus. Result Comment: [facility] Glucose Reference Range is dependent on time and content of last meal. Glucose of more than 200 mg/dL in a nonstressed, ambulatory subject supports the diagnosis of Diabetes Mellitus. ADA recommended reference range Performed By: #### C BC, PT, PTT, CMP #### [address] Serum or plasma potassium me asurement (moles/volume)Ordered By: Kingston Gao on 04-08-2022 Potassium [Moles/Vol] 4.2 mmol/L Normal 3.5-5.1 [facility] Comment on above: Performed By: #### C BC, PT, PTT, CMP #### [address] Serum or plasma prealbumin m easurement (mass/volume)Ordered By: Kingston Gao on 04-08-2022 Prealbumin [Mass/Vol] 15.9 mg/dL Low 18.0-38.0 [facility] Comment on above: Result Comment: PERF ORMED BY: [place] [address] PATHOLOGIST GLASS TECHNICIAN/INSTALLER GUIDO ELIZALDE M.D. Performed By: #### C BC, PT, PTT, CMP #### [address] Serum or plasma sodium measu rement (moles/volume)Ordered By: Kingston Gao on 04-08-2022 Sodium [Moles/Vol] 138 mmol/L Normal 136-146 [facility] Comment on above: Performed By: #### C BC, PT, PTT, CMP #### [address] Serum or plasma total biliru bin measurement (mass/volume)Ordered By: Kingston Gao on 04-08-2022 Bilirubin [Mass/Vol] 0.5 mg/dL Normal 0.3-1.2 [facility] Comment on above: Performed By: #### C BC, PT, PTT, CMP #### [address] [place] [address] [place] Serum or plasma total carbon dioxide measurement (moles/volume)Ordered By: Kingston Murray on 04-08-2022 CO2 [Moles/Vol] 28.4 mmol/L Normal 22.0-30.0 [facility] Comment on above: Performed By: #### C BC, PT, PTT, CMP #### [address] Serum or plasma urea nitroge n measurement (mass/volume)Ordered By: Kingston Gao on 04-08-2022 Urea nitrogen [Mass/Vol] 7 mg/dL Low 9- [facility] Comment on above: Performed By: #### C BC, PT, PTT, CMP #### [address] Glucose Poct Glucometerson 0 04-07-2022 Glucose [Mass/Vol] 161 mg/dL Normal [facility] Comment on above: Result Comment: [facility] Glucose Reference Range is dependent on time and content of last meal. Glucose of more than 200 mg/dL in a nonstressed, ambulatory subject supports the diagnosis of Diabetes Mellitus. PERFORMED BY: [place] [address] PATHOLOGIST GLASS TECHNICIAN/INSTALLER GUIDO ELIZALDE M.D. Performed By: #### C BC, PT, PTT, CMP #### [address] Glucose [Mass/Vol] 110 mg/dL Normal [facility] Comment on above: Result Comment: [facility] Glucose Reference Range is dependent on time and content of last meal. Glucose of more than 200 mg/dL in a nonstressed, ambulatory subject supports the diagnosis of Diabetes Mellitus. PERFORMED BY: [place] [address] PATHOLOGIST GLASS TECHNICIAN/INSTALLER GUIDO ELIZALDE M.D. Performed By: #### G LUMARKUS #### Point of Care testing , Urine culture routineOrdered By: Kieran Scott on 03-29-2022 Bacteria identified Cx Nom (U) 2 Days [facility] Albumin [Mass/volume] in Ser um or PlasmaOrdered By: Kieran Scott on 03-28-2022 Albumin [Mass/Vol] 2.8 g/dL 3.2-5.5 [facility] Basophils Auto (Bld) [#/Vol] Ordered By: Kieran Scott on 03-28-2022 Basophils (Bld) [#/Vol] 0.0 10*3/uL 0.0-0.2 [facility] Basophils/100 WBC Auto (Bld) Ordered By: Kieran Scott on 03-28-2022 Basophils/100 WBC (Bld) 0.6 % . [facility] Blood hemoglobin measurement (mass/volume)Ordered By: Kieran Scott on 03-28-2022 Hemoglobin (Bld) [Mass/Vol] 13.1 g/dL 11.8-15.4 [facility] Blood leukocytes automated c ount (number/volume)Ordered By: Kieran Scott on 03-28-2022 WBC (Bld) [#/Vol] 7.1 10*3/uL 4.5-11.0 [facility] Complete Blood Count Auto Di ffon 03-28-2022 Basophils (Bld) [#/Vol] 0.0 10*3/uL Normal 0.0-0.2 [facility] Comment on above: Result Comment: PERF ORMED BY: [facility] [address] [place] [address] PATHOLOGIST GLASS TECHNICIAN/INSTALLER GUIDO ELIZALDE M.D. Performed By: #### G LULS #### Point of Care testing , Basophils/100 WBC (Bld) 0.6 % Normal . [facility] Comment on above: Performed By: #### G LULS #### Point of Care testing , Eosinophils (Bld) [#/Vol] 0.3 10*3/uL Normal 0.0-0.45 [facility] Comment on above: Performed By: #### G LULS #### Point of Care testing , Eosinophils/100 WBC (Bld) 3.9 % Normal . [facility] Comment on above: Performed By: #### G LULS #### Point of Care testing , Erythrocyte distribution width (RBC) [Ratio] 13.7 % Normal 11.9-15.3 [facility] Comment on above: Performed By: #### G CLEMENTLS #### Point of Care testing , Hematocrit (Bld) [Volume fraction] 38.7 % Normal 34.0-46.4 [facility] Comment on above: Performed By: #### G CLEMENTLS #### Point of Care testing , Hemoglobin (Bld) [Mass/Vol] 13.1 g/dL Normal 11.8-15.4 [facility] Comment on above: Performed By: #### G CLEMENTLS #### Point of Care testing , Lymphocytes (Bld) [#/Vol] 2.7 10*3/uL Normal 1.00-4.8 [facility] Comment on above: Performed By: #### G CLEMENTLS #### Point of Care testing , Lymphocytes/100 WBC (Bld) 37.6 % Normal . [facility] Comment on above: Performed By: #### G CLEMENTLS #### Point of Care testing , MCH (RBC) [Entitic mass] 30.7 pg Normal 24.7-34.3 [facility] Comment on above: Performed By: #### G CLEMENTLS #### Point of Care testing , MCV (RBC) [Entitic vol] 90.6 fL Normal 80-100 [facility] Comment on above: Performed By: #### G CLEMENTLS #### Point of Care testing , Mean Corpuscular HGB Conc 33.9 g/dL Normal 32.0-35.0 [facility] Comment on above: Performed By: #### G CLEMENTLS #### Point of Care testing , Monocytes (Bld) [#/Vol] 0.6 10*3/uL Normal 0.0-0.8 [facility] Comment on above: Performed By: #### G CLEMENTLS #### Point of Care testing , Monocytes/100 WBC (Bld) 8.5 % Normal . [facility] Comment on above: Performed By: #### G CLEMENTLS #### Point of Care testing , Neutrophils (Bld) [#/Vol] 3.5 10*3/uL Normal 1.8-7.7 [facility] Comment on above: Performed By: #### G INOCENTE #### Point of Care testing , Neutrophils/100 WBC (Bld) 49.4 % Normal . [facility] Comment on above: Performed By: #### G CLEMENTLS #### Point of Care testing , Nucleated RBC/100 WBC (Bld) [Ratio] 0.2 % Normal 0-0.5 [facility] Comment on above: Performed By: #### G INOCENTE #### Point of Care testing , Platelet mean volume (Bld) [Entitic vol] 8.8 fL Normal 6.3-10.7 [facility] Comment on above: Performed By: #### G INOCENTE #### Point of Care testing , Platelets (Bld) [#/Vol] 245 10*3/uL Normal 150-450 [facility] Comment on above: Performed By: #### Shanti BROWER #### Point of Care testing , RBC (Bld) [#/Vol] 4.27 10*6/uL Normal 3.60-5.00 [facility] Comment on above: Performed By: #### G INOCENTE #### Point of Care testing , WBC (Bld) [#/Vol] 7.1 10*3/uL Normal 4.5-11.0 [facility] Comment on above: Performed By: #### Shanti VAUGHANLS #### Point of Care testing , Comprehensive Metabolic Pane sadiq 03-28-2022 Alanine Aminotransferase Normal 10-60 [facility] Comment on above: Result Comment: Unac ceptable specimen due to hemolysis. Redraw reordered. Performed By: #### G INOCENTE #### Point of Care testing , Albumin [Mass/Vol] 2.8 g/dL Low 3.2-5.5 [facility] Comment on above: Performed By: #### G INOCENTE #### Point of Care testing , Albumin/Globulin [Mass ratio] 1.0 {ratio} Normal [facility] Comment on above: Performed By: #### G LULS #### Point of Care testing , Alkaline Phosphatase Normal 32-92 [facility] Comment on above: Result Comment: Unac ceptable specimen due to hemolysis. Redraw reordered. Performed By: #### G LULS #### Point of Care testing , Aspartate Amino Transferase Normal 10-42 [facility] Comment on above: Result Comment: Unac ceptable specimen due to hemolysis. Redraw reordered. Performed By: #### G LULS #### Point of Care testing , Bilirubin,Total Normal 0.3-1.2 [facility] Comment on above: Result Comment: Unac ceptable specimen due to hemolysis. Redraw reordered. Performed By: #### G LULS #### Point of Care testing , Calcium [Mass/Vol] 8.8 mg/dL Normal 8.2-10.2 [facility] Comment on above: Performed By: #### G LULS #### Point of Care testing , Chloride [Moles/Vol] 104 mmol/L Normal 95-114 [facility] Comment on above: Performed By: #### G LULS #### Point of Care testing , CO2 [Moles/Vol] 25.7 mmol/L Normal 22.0-30.0 [facility] Comment on above: Performed By: #### G LULS #### Point of Care testing , Creatinine [Mass/Vol] 0.74 mg/dL Normal 0.44-1.03 [facility] Comment on above: Performed By: #### G LULS #### Point of Care testing , Creatinine Clr Calc Pharmacy 53.72 [facility] Comment on above: Result Comment: PERF ORMED BY: [facility] [address] [place] [address] PATHOLOGIST GLASS TECHNICIAN/INSTALLER GUIDO ELIZALDE M.D. Performed By: #### G LULS #### Point of Care testing , Estimated GFR ( Froylan > 60 [facility] Comment on above: Result Comment: GFR estimated reference range: According to KDOQI guidelines, <60 ml/min/1.73m2 is sufficient to diagnose a patient with chronic kidney disease. Performed By: #### G LULS #### Point of Care testing , Estimated GFR (Non- Am > 60 Normal [facility] Comment on above: Performed By: #### G LULS #### Point of Care testing , Globulin (S) [Mass/Vol] 2.9 g/dL Normal [facility] Comment on above: Performed By: #### G LULS #### Point of Care testing , Glucose [Mass/Vol] 193 mg/dL High 70-100 [facility] Comment on above: Result Comment: [place] Glucose Reference Range is dependent on time and content of last meal. Glucose of more than 200 mg/dL in a nonstressed, ambulatory subject supports the diagnosis of Diabetes Mellitus. ADA recommended reference range Performed By: #### G LULS #### Point of Care testing , Potassium Normal 3.5-5.1 [facility] Comment on above: Result Comment: Unac ceptable specimen due to hemolysis. Redraw reordered. Performed By: #### G LULS #### Point of Care testing , Protein [Mass/Vol] 5.7 g/dL Low 6.1-7.9 [facility] Comment on above: Performed By: #### G LULS #### Point of Care testing , Sodium [Moles/Vol] 138 mmol/L Normal 136-146 [facility] Comment on above: Performed By: #### G LULS #### Point of Care testing , Urea nitrogen [Mass/Vol] 18 mg/dL Normal 9-23 [facility] Comment on above: Performed By: #### G LULS #### Point of Care testing , Creatinine and Glomerular fi ltration rate.predicted panel (S/P/Bld)Ordered By: Kieran Scott on 03-28-2022 Creatinine [Mass/Vol] 0.74 mg/dL 0.44-1.03 [facility] Eosinophils Auto (Bld) [#/Vo l]Ordered By: Kieran Scott on 03-28-2022 Eosinophils (Bld) [#/Vol] 0.3 10*3/uL 0.0-0.45 [facility] Eosinophils/100 WBC Auto (Bl d)Ordered By: Kieran Scott on 03-28-2022 Eosinophils/100 WBC (Bld) 3.9 % . [facility] Erythrocyte distribution wid th Auto (RBC) [Ratio]Ordered By: Kieran Scott on 03-28-2022 Erythrocyte distribution width (RBC) [Ratio] 13.7 % 11.9-15.3 [facility] Estimated glomerular filtrat ion rate (GFR) non- AmericanOrdered By: Kieran Scott on 03-28-2022 GFR/1.73 sq M.predicted among non-blacks MDRD (S/P/Bld) [Vol rate/Area] > 60 mL/Min [facility] Globulin Calc (S) [Mass/Vol] Ordered By: Kieran Scott on 03-28-2022 Globulin (S) [Mass/Vol] 2.9 g/dL [facility] Glucose Glucometer (BldC) [M ass/Vol]Ordered By: Rupert Anthony on 03-28-2022 Glucose [Mass/Vol] 236 mg/dL [facility] Comment on above: Random Glucose Refer ence Range is dependent on time and content of last meal. Glucose of more than 200 mg/dL in a nonstressed, ambulatory subject supports the diagnosis of Diabetes Mellitus. Glucose Poct Glucometerson 0 03-28-2022 Commemt1 Glu2: Cleaned Meter Normal [facility] Comment on above: Result Comment: PERF ORMED BY: [place] [address] PATHOLOGIST GLASS TECHNICIAN/INSTALLER GUIDO ELIZALDE M.D. Performed By: #### C BC, PT, PTT, CMP #### [address] Glucose [Mass/Vol] 236 mg/dL Normal [facility] Comment on above: Result Comment: [place] Glucose Reference Range is dependent on time and content of last meal. Glucose of more than 200 mg/dL in a nonstressed, ambulatory subject supports the diagnosis of Diabetes Mellitus. Performed By: #### C BC, PT, PTT, CMP #### [facility] [address] Glucose [Mass/Vol] 193 mg/dL Normal [facility] Comment on above: Result Comment: [facility] Glucose Reference Range is dependent on time and content of last meal. Glucose of more than 200 mg/dL in a nonstressed, ambulatory subject supports the diagnosis of Diabetes Mellitus. PERFORMED BY: [facility] [address] [place] [address] PATHOLOGIST GLASS TECHNICIAN/INSTALLER GUIDO ELIZALDE M.D. Performed By: #### C BC, PT, PTT, CMP #### [facility] [address] Hematocrit Auto (Bld) [Volum e fraction]Ordered By: Kieran Scott on 03-28-2022 Hematocrit (Bld) [Volume fraction] 38.7 % 34.0-46.4 [facility] Laboratory - Chemistry and C hemistry - challengeOrdered By: Kieran Scott on 03-28-2022 AST [Catalytic activity/Vol] 24 U/L 10-42 [facility] Laboratory - Hematology and Cell countsOrdered By: Kieran Scott on 03-28-2022 Nucleated RBC/100 WBC (Bld) [Ratio] 0.2 % 0-0.5 [facility] Lymphocytes Auto (Bld) [#/Vo l]Ordered By: Kieran Scott on 03-28-2022 Lymphocytes (Bld) [#/Vol] 2.7 10*3/uL 1.00-4.8 [facility] Lymphocytes/100 WBC Auto (Bl d)Ordered By: Kieran Scott on 03-28-2022 Lymphocytes/100 WBC (Bld) 37.6 % . [facility] MCH Auto (RBC) [Entitic mass ]Ordered By: Kieran Scott on 03-28-2022 MCH (RBC) [Entitic mass] 30.7 pg 24.7-34.3 [facility] MCHC Auto (RBC) [Mass/Vol]Or dered By: Kieran Scott on 03-28-2022 MCHC (RBC) [Mass/Vol] 33.9 g/dL 32.0-35.0 [facility] MCV Auto (RBC) [Entitic vol] Ordered By: Kieran Scott on 03-28-2022 MCV (RBC) [Entitic vol] 90.6 fL 80-100 [facility] Monocytes Auto (Bld) [#/Vol] Ordered By: Kieran Tyler on 03-28-2022 Monocytes (Bld) [#/Vol] 0.6 10*3/uL 0.0-0.8 [facility] Monocytes/100 WBC Auto (Bld) Ordered By: Kieran Tyler on 03-28-2022 Monocytes/100 WBC (Bld) 8.5 % . [facility] Neutrophils Auto (Bld) [#/Vo l]Ordered By: Kieran Tyler on 03-28-2022 Neutrophils (Bld) [#/Vol] 3.5 10*3/uL 1.8-7.7 [facility] Neutrophils/100 WBC Auto (Bl d)Ordered By: Kieran Scott on 03-28-2022 Neutrophils/100 WBC (Bld) 49.4 % . [facility] No Panel InformationOrdered By: Rupert Anthony on 03-28-2022 Bedside Glucose Comment Glu2: cleaned meter [facility] No Panel InformationOrdered By: Kieran Scott on 03-28-2022 Estimated GFR () > 60 mL/Min [facility] Comment on above: GFR estimated refere nce range: According to KDOQI guidelines, <60 ml/min/1.73m2 is sufficient to diagnose a patient with chronic kidney disease. Pharmacy Creatinine Clearance (Chem 53.72 [facility] Platelet mean volume Auto (B ld) [Entitic vol]Ordered By: Kieran Tyler on 03-28-2022 Platelet mean volume (Bld) [Entitic vol] 8.8 fL 6.3-10.7 [facility] Platelets Auto (Bld) [#/Vol] Ordered By: Kieran Tyler on 03-28-2022 Platelets (Bld) [#/Vol] 245 10*3/uL 150-450 [facility] Protein [Mass/volume] in Ser um or PlasmaOrdered By: Kieran Scott on 03-28-2022 Protein [Mass/Vol] 5.7 g/dL 6.1-7.9 [facility] RBC Auto (Bld) [#/Vol]Ordere d By: Kieran Scott on 03-28-2022 RBC (Bld) [#/Vol] 4.27 10*6/uL 3.60-5.00 [facility] Redraw Jadyn 03-28-2022 ALT [Catalytic activity/Vol] 25 U/L Normal 10-60 [facility] Comment on above: Order Comment: REDRA W Performed By: #### G LULS #### Point of Care testing , Redraw Tripp 03-28-2022 AST [Catalytic activity/Vol] 24 U/L Normal 10-42 [facility] Comment on above: Order Comment: REDRA W Performed By: #### G LULS #### Point of Care testing , Redraw Alkaline Phosphataseo n 03-28-2022 ALP [Catalytic activity/Vol] 50 U/L Normal 32-92 [facility] Comment on above: Order Comment: REDRA W Result Comment: PERF ORMED BY: [facility] [address] [place] [address] PATHOLOGIST GLASS TECHNICIAN/INSTALLER GUIDO ELIZALDE M.D. Performed By: #### G LULS #### Point of Care testing , Redraw Bilirubin,Totalon Bilirubin [Mass/Vol] 0.8 mg/dL Normal 0.3-1.2 [facility] Comment on above: Order Comment: REDRA W Performed By: #### G LULS #### Point of Care testing , Redraw Potassiumon Potassium [Moles/Vol] 4.7 mmol/L Normal 3.5-5.1 [facility] Comment on above: Order Comment: REDRA W Performed By: #### G LULS #### Point of Care testing , Serum or plasma alanine [place] otransferase measurement without P-5'-P (enzymatic activiOrdered By: Kieran Scott on 03-28-2022 ALT No additional P-5'-P [Catalytic activity/Vol] 25 U/L 10-60 [facility] Serum or plasma albumin/glob ulin mass ratioOrdered By: Kieran Scott on 03-28-2022 Albumin/Globulin [Mass ratio] 1.0 {ratio} [facility] Serum or plasma alkaline dolly sphatase measurement (enzymatic activity/volume)Ordered By: Kieran Scott on 03-28-2022 ALP [Catalytic activity/Vol] 50 U/L 32-92 [facility] Serum or plasma calcium nakul urement (mass/volume)Ordered By: Kieran Scott on 03-28-2022 Calcium [Mass/Vol] 8.8 mg/dL 8.2-10.2 [facility] Serum or plasma chloride juliana surement (moles/volume)Ordered By: Kieran Scott on 03-28-2022 Chloride [Moles/Vol] 104 mmol/L 95-114 [facility] Serum or plasma glucose nakul urement (mass/volume)Ordered By: Kieran Scott on 03-28-2022 Glucose [Mass/Vol] 193 mg/dL 70-100 [facility] Comment on above: ADA recommended refe rence range Random Glucose Reference Range is dependent on time and content of last meal. Glucose of more than 200 mg/dL in a nonstressed, ambulatory subject supports the diagnosis of Diabetes Mellitus. Serum or plasma potassium me asurement (moles/volume)Ordered By: Kieran Scott on 03-28-2022 Potassium [Moles/Vol] 4.7 mmol/L 3.5-5.1 [facility] Serum or plasma sodium measu rement (moles/volume)Ordered By: Kieran Scott on 03-28-2022 Sodium [Moles/Vol] 138 mmol/L 136-146 [facility] Serum or plasma total biliru bin measurement (mass/volume)Ordered By: Kieran Scott on 03-28-2022 Bilirubin [Mass/Vol] 0.8 mg/dL 0.3-1.2 [facility] Serum or plasma total carbon dioxide measurement (moles/volume)Ordered By: Kieranreyes Scott on 03-28-2022 CO2 [Moles/Vol] 25.7 mmol/L 22.0-30.0 [facility] Serum or plasma urea nitroge n measurement (mass/volume)Ordered By: Kieranreyes Scott on 03-28-2022 Urea nitrogen [Mass/Vol] 18 mg/dL 9-23 [facility] Automated erythrocytes count in urine sediment (number/area)Ordered By: Kieran Scott on 03-27-2022 RBC Auto (Urine sed) [#/Area] 10-19 [HPF] 0-4 [facility] Automated leukocytes count i n urine sediment (number/area)Ordered By: Kieran Tyler on 03-27-2022 WBC Auto (Urine sed) [#/Area] 5-9 [HPF] 0-4 [facility] Bilirubin Test strip Ql (U)O rdered By: Kieranreyes Scott on 03-27-2022 Bilirubin Ql (U) Negative Negative [facility] Color Auto (U)Ordered By: Vivek Scott on 03-27-2022 Color (U) Yellow Yellow [facility] Complete Blood Count Auto Di ffon 03-27-2022 Basophils (Bld) [#/Vol] 0.0 10*3/uL Normal 0.0-0.2 [facility] Comment on above: Result Comment: PERF ORMED BY: [place] [address] PATHOLOGIST GLASS TECHNICIAN/INSTALLER GUIDO ELIZALDE M.D. Performed By: #### C BC, PT, PTT, CMP #### [facility] [address] [place] [address] [place] Basophils/100 WBC (Bld) 0.4 % Normal . [facility] Comment on above: Performed By: #### C BC, PT, PTT, CMP #### [facility] [address] [place] [address] [place] Eosinophils (Bld) [#/Vol] 0.3 10*3/uL Normal 0.0-0.45 [facility] Comment on above: Performed By: #### C BC, PT, PTT, CMP #### [facility] [address] Eosinophils/100 WBC (Bld) 4.2 % Normal . [facility] Comment on above: Performed By: #### C BC, PT, PTT, CMP #### [address] Erythrocyte distribution width (RBC) [Ratio] 13.8 % Normal 11.9-15.3 [facility] Comment on above: Performed By: #### C BC, PT, PTT, CMP #### [address] Hematocrit (Bld) [Volume fraction] 40.4 % Normal 34.0-46.4 [facility] Comment on above: Performed By: #### C BC, PT, PTT, CMP #### [address] Hemoglobin (Bld) [Mass/Vol] 13.6 g/dL Normal 11.8-15.4 [facility] Comment on above: Performed By: #### C BC, PT, PTT, CMP #### [address] Lymphocytes (Bld) [#/Vol] 3.0 10*3/uL Normal 1.00-4.8 [facility] Comment on above: Performed By: #### C BC, PT, PTT, CMP #### [place] [address] [place] Lymphocytes/100 WBC (Bld) 36.2 % Normal . [facility] Comment on above: Performed By: #### C BC, PT, PTT, CMP #### [address] MCH (RBC) [Entitic mass] 30.7 pg Normal 24.7-34.3 [facility] Comment on above: Performed By: #### C BC, PT, PTT, CMP #### [address] MCV (RBC) [Entitic vol] 90.9 fL Normal 80-100 [facility] Comment on above: Performed By: #### C BC, PT, PTT, CMP #### [address] Mean Corpuscular HGB Conc 33.7 g/dL Normal 32.0-35.0 [facility] Comment on above: Performed By: #### C BC, PT, PTT, CMP #### [address] Monocytes (Bld) [#/Vol] 0.8 10*3/uL Normal 0.0-0.8 [facility] Comment on above: Performed By: #### C BC, PT, PTT, CMP #### [address] Monocytes/100 WBC (Bld) 9.6 % Normal . [facility] Comment on above: Performed By: #### C BC, PT, PTT, CMP #### [address] Neutrophils (Bld) [#/Vol] 4.1 10*3/uL Normal 1.8-7.7 [facility] Comment on above: Performed By: #### C BC, PT, PTT, CMP #### [address] Neutrophils/100 WBC (Bld) 49.6 % Normal . [facility] Comment on above: Performed By: #### C BC, PT, PTT, CMP #### [address] Nucleated RBC/100 WBC (Bld) [Ratio] 0.0 % Normal 0-0.5 [facility] Comment on above: Performed By: #### C BC, PT, PTT, CMP #### [address] Platelet mean volume (Bld) [Entitic vol] 8.6 fL Normal 6.3-10.7 [facility] Comment on above: Performed By: #### C BC, PT, PTT, CMP #### [address] [place] [address] [place] Platelets (Bld) [#/Vol] 240 10*3/uL Normal 150-450 [facility] Comment on above: Performed By: #### C BC, PT, PTT, CMP #### [address] RBC (Bld) [#/Vol] 4.45 10*6/uL Normal 3.60-5.00 [facility] Comment on above: Performed By: #### C BC, PT, PTT, CMP #### [address] WBC (Bld) [#/Vol] 8.2 10*3/uL Normal 4.5-11.0 [facility] Comment on above: Performed By: #### C BC, PT, PTT, CMP #### [address] Comprehensive Metabolic Pane sadiq 03-27-2022 Albumin [Mass/Vol] 2.9 g/dL Low 3.2-5.5 [facility] Comment on above: Performed By: #### C BC, PT, PTT, CMP #### [address] Albumin/Globulin [Mass ratio] 1.0 {ratio} Normal [facility] Comment on above: Performed By: #### C BC, PT, PTT, CMP #### [address] ALP [Catalytic activity/Vol] 51 U/L Normal 32-92 [facility] Comment on above: Performed By: #### C BC, PT, PTT, CMP #### [address] ALT [Catalytic activity/Vol] 26 U/L Normal 10-60 [facility] Comment on above: Performed By: #### C BC, PT, PTT, CMP #### [address] AST [Catalytic activity/Vol] 22 U/L Normal 10-42 [facility] Comment on above: Performed By: #### C BC, PT, PTT, CMP #### [facility] [address] Bilirubin [Mass/Vol] 0.8 mg/dL Normal 0.3-1.2 [facility] Comment on above: Performed By: #### C BC, PT, PTT, CMP #### [facility] [address] Calcium [Mass/Vol] 9.0 mg/dL Normal 8.2-10.2 [facility] Comment on above: Performed By: #### C BC, PT, PTT, CMP #### [facility] [address] Chloride [Moles/Vol] 101 mmol/L Normal 95-114 [facility] Comment on above: Performed By: #### C BC, PT, PTT, CMP #### [address] CO2 [Moles/Vol] 27.1 mmol/L Normal 22.0-30.0 [facility] Comment on above: Performed By: #### C BC, PT, PTT, CMP #### [facility] [address] [place] [address] Creatinine [Mass/Vol] 0.85 mg/dL Normal 0.44-1.03 [facility] Comment on above: Performed By: #### C BC, PT, PTT, CMP #### [facility] [address] [place] [address] Creatinine Clr Calc Pharmacy 50.56 [facility] Comment on above: Result Comment: PERF ORMED BY: [place] [address] PATHOLOGIST GLASS TECHNICIAN/INSTALLER GUIDO ELIZALDE M.D. Performed By: #### C BC, PT, PTT, CMP #### [address] Estimated GFR ( Froylan > 60 Normal [facility] Comment on above: Result Comment: GFR estimated reference range: According to KDOQI guidelines, <60 ml/min/1.73m2 is sufficient to diagnose a patient with chronic kidney disease. Performed By: #### C BC, PT, PTT, CMP #### [facility] [address] Estimated GFR (Non- Am > 60 Normal [facility] Comment on above: Performed By: #### C BC, PT, PTT, CMP #### [facility] [address] Globulin (S) [Mass/Vol] 3.0 g/dL Normal [facility] Comment on above: Performed By: #### C BC, PT, PTT, CMP #### [address] Glucose [Mass/Vol] 177 mg/dL High 70-100 [facility] Comment on above: Result Comment: [place] Glucose Reference Range is dependent on time and content of last meal. Glucose of more than 200 mg/dL in a nonstressed, ambulatory subject supports the diagnosis of Diabetes Mellitus. ADA recommended reference range Performed By: #### C BC, PT, PTT, CMP #### [address] Potassium [Moles/Vol] 4.0 mmol/L Normal 3.5-5.1 [facility] Comment on above: Performed By: #### C BC, PT, PTT, CMP #### [address] Protein [Mass/Vol] 5.9 g/dL Low 6.1-7.9 [facility] Comment on above: Performed By: #### C BC, PT, PTT, CMP #### [facility] [address] Sodium [Moles/Vol] 139 mmol/L Normal 136-146 [facility] Comment on above: Performed By: #### C BC, PT, PTT, CMP #### [facility] [address] Urea nitrogen [Mass/Vol] 23 mg/dL Normal 9-23 [facility] Comment on above: Performed By: #### C BC, PT, PTT, CMP #### [facility] [address] [place] [address] [place] Dipstick and Microscopicon 0 03-27-2022 Appearance (U) Clear Normal Clear [facility] Comment on above: Order Comment: Name Collection Type:: Clean-Voided Midstream Performed By: #### G LULS #### Point of Care testing , Bacteria,Urine None Seen Normal None Seen [facility] Comment on above: Order Comment: Name Collection Type:: Clean-Voided Midstream Performed By: #### G LULS #### Point of Care testing , Bilirubin,Urine Negative Normal Negative [facility] Comment on above: Order Comment: Name Collection Type:: Clean-Voided Midstream Performed By: #### G LULS #### Point of Care testing , Color (U) Yellow Normal Yellow [facility] Comment on above: Order Comment: Name Collection Type:: Clean-Voided Midstream Performed By: #### G LULS #### Point of Care testing , Glucose Ql (U) 500 mg/dL High Normal [facility] Comment on above: Order Comment: Name Collection Type:: Clean-Voided Midstream Performed By: #### G LULS #### Point of Care testing , Hyaline Casts,Urine None Seen Normal 0-8 [facility] Comment on above: Order Comment: Name Collection Type:: Clean-Voided Midstream Result Comment: PERF ORMED BY: [place] [address] PATHOLOGIST GLASS TECHNICIAN/INSTALLER GUIDO ELIZALDE M.D. Performed By: #### G LULS #### Point of Care testing , Ketones Ql (U) Negative Normal Negative [facility] Comment on above: Order Comment: Name Collection Type:: Clean-Voided Midstream Performed By: #### G LULS #### Point of Care testing , Leukocyte esterase Test strip Ql (U) 2+ High Negative [facility] Comment on above: Order Comment: Name Collection Type:: Clean-Voided Midstream Performed By: #### G LULS #### Point of Care testing , Nitrite,Urine Negative Normal Negative [facility] Comment on above: Order Comment: Name Collection Type:: Clean-Voided Midstream Performed By: #### G LULS #### Point of Care testing , Occult Blood,Urine 2+ High Negative [facility] Comment on above: Order Comment: Name Collection Type:: Clean-Voided Midstream Result Comment: PERF ORMED BY: [facility] [place] [address] PATHOLOGIST GLASS TECHNICIAN/INSTALLER GUIDO ELIZALDE M.D. Performed By: #### G LULS #### Point of Care testing , pH (U) 5.5 [pH] Normal 5.0-9.0 [facility] Comment on above: Order Comment: Name Collection Type:: Clean-Voided Midstream Performed By: #### G LULS #### Point of Care testing , Protein,Urine Negative Normal Negative [facility] Comment on above: Order Comment: Name Collection Type:: Clean-Voided Midstream Performed By: #### G LULS #### Point of Care testing , RBC,Urine 10-19 High 0-4 [facility] Comment on above: Order Comment: Name Collection Type:: Clean-Voided Midstream Performed By: #### G LULS #### Point of Care testing , Specificy [place],Urine 1.012 Normal 1.001-1.030 [facility] Comment on above: Order Comment: Name Collection Type:: Clean-Voided Midstream Performed By: #### G LULS #### Point of Care testing , Squamous Epithelial Cell,Urine 0-1 Normal 0-2 [facility] Comment on above: Order Comment: Name Collection Type:: Clean-Voided Midstream Performed By: #### G LULS #### Point of Care testing , Urobilinogen,Urine Normal Normal Normal [facility] Comment on above: Order Comment: Name Collection Type:: Clean-Voided Midstream Performed By: #### G LULS #### Point of Care testing , WBC,Urine 5-9 High 0-4 [facility] Comment on above: Order Comment: Name Collection Type:: Clean-Voided Midstream Performed By: #### G INOCENTE #### Point of Care testing , Glucose Poct Glucometerson 0 03-27-2022 Glucose [Mass/Vol] 164 mg/dL Normal [facility] Comment on above: Result Comment: [place] om Glucose Reference Range is dependent on time and content of last meal. Glucose of more than 200 mg/dL in a nonstressed, ambulatory subject supports the diagnosis of Diabetes Mellitus. PERFORMED BY: [place] [address] PATHOLOGIST GLASS TECHNICIAN/INSTALLER GUIDO ELIZALDE M.D. Performed By: #### C BC, PT, PTT, CMP #### [address] Glucose [Mass/Vol] 222 mg/dL Normal [facility] Comment on above: Result Comment: [place] om Glucose Reference Range is dependent on time and content of last meal. Glucose of more than 200 mg/dL in a nonstressed, ambulatory subject supports the diagnosis of Diabetes Mellitus. PERFORMED BY: [place] [address] PATHOLOGIST GLASS TECHNICIAN/INSTALLER GUIDO ELIZALDE M.D. Performed By: #### C BC, PT, PTT, CMP #### [address] Glucose [Mass/Vol] 256 mg/dL Normal [facility] Comment on above: Result Comment: [place] om Glucose Reference Range is dependent on time and content of last meal. Glucose of more than 200 mg/dL in a nonstressed, ambulatory subject supports the diagnosis of Diabetes Mellitus. PERFORMED BY: [place] [address] PATHOLOGIST GLASS TECHNICIAN/INSTALLER GUIDO ELIZALDE M.D. Performed By: #### C BC, PT, PTT, CMP #### [place] [address] [place] Glucose [Mass/Vol] 202 mg/dL Normal [facility] Comment on above: Result Comment: [place] om Glucose Reference Range is dependent on time and content of last meal. Glucose of more than 200 mg/dL in a nonstressed, ambulatory subject supports the diagnosis of Diabetes Mellitus. PERFORMED BY: [place] [address] PATHOLOGIST GLASS TECHNICIAN/INSTALLER GUIDO ELIZALDE M.D. Performed By: #### C BC, PT, PTT, CMP #### [address] Ketones Auto test strip (U) [Mass/Vol]Ordered By: Kieran Tyler on 03-27-2022 Ketones (U) [Mass/Vol] Negative Negative [facility] - UrinalysisOrder ed By: Kieran Tyler on 03-27-2022 Hyaline casts LM Ql (Urine sed) None seen [LPF] 0-8 [facility] Nitrite Test strip Ql (U)Ord ered By: Kieran Tyler on 03-27-2022 Nitrite Ql (U) Negative Negative [facility] Protein Auto test strip (U) [Mass/Vol]Ordered By: Kieran Tyler on 03-27-2022 Protein (U) [Mass/Vol] Negative Negative [facility] Specific gravity Auto test s trip (U) [Rel density]Ordered By: Kieran Tyler on 03-27-2022 Specific gravity (U) [Rel density] 1.012 1.001-1.030 [facility] Squamous epithelial cells de tection in urine sediment by light microscopyOrdered By: Kieran Scott on 03-27-2022 Epithelial cells.squamous LM Ql (Urine sed) 0-1 [HPF] 0-2 [facility] Urine Cultureon 03-27-2022 Bacteria identified Cx Nom (U) 75,000 colonies/ml mixed bacterial skin contaminants 2 Days PERFORMED BY: [facility] [address] [place] [address] PATHOLOGIST GLASS TECHNICIAN/INSTALLER GUIDO ELIZALDE M.D. Normal [facility] Comment on above: Performed By: #### G LULS #### Point of Care testing , Urine bacteria detection by automated methodOrdered By: Kieran Scott on 03-27-2022 Bacteria Auto Ql (U) None seen None Seen [facility] Urine clarity by refractomet ry automatedOrdered By: Kieran Scott on 03-27-2022 Clarity Refractometry automated (U) Clear Clear [facility] Urine culture routineOrdered By: Kieran Scott on 03-27-2022 Bacteria identified Cx Nom (U) 2 Days [facility] Urine glucose measurement by automated test strip (mass/volume)Ordered By: Kieran Scott on 03-27-2022 Glucose Auto test strip (U) [Mass/Vol] 500 mg/dL Normal [facility] Urine hemoglobin detection b y automated test stripOrdered By: Kieran Scott on 03-27-2022 Hemoglobin Auto test strip Ql (U) 2+ Negative [facility] Urine leukocyte esterase det ection by automated test stripOrdered By: Kieran Scott on 03-27-2022 Leukocyte esterase Auto test strip Ql (U) 2+ Negative [facility] Urobilinogen Auto test strip (U) [Mass/Vol]Ordered By: Keiran Scott on 03-27-2022 Urobilinogen (U) [Mass/Vol] Normal mg/dL Normal [facility] pH Auto test strip (U)Ordere d By: Kieran Scott on 03-27-2022 pH (U) 5.5 [pH] 5.0-9.0 [facility] Glucose Poct Glucometerson 0 03-26-2022 Commemt1 Glu2: Cleaned Meter [facility] Comment on above: Result Comment: PERF ORMED BY: [facility] [address] [place] [address] PATHOLOGIST GLASS TECHNICIAN/INSTALLER GUIDO ELIZALDE M.D. Performed By: #### G LULS #### Point of Care testing , Glucose [Mass/Vol] 263 mg/dL Normal [facility] Comment on above: Result Comment: [facility] Glucose Reference Range is dependent on time and content of last meal. Glucose of more than 200 mg/dL in a nonstressed, ambulatory subject supports the diagnosis of Diabetes Mellitus. Performed By: #### G LULS #### Point of Care testing , Commemt1 Glu2: Cleaned Meter Normal [facility] Comment on above: Result Comment: PERF ORMED BY: [place] [address] PATHOLOGIST GLASS TECHNICIAN/INSTALLER GUIDO ELIZALDE M.D. Performed By: #### C BC, PT, PTT, CMP #### [place] [id number] [facility] Glucose [Mass/Vol] 232 mg/dL Normal [facility] Comment on above: Result Comment: [place] om Glucose Reference Range is dependent on time and content of last meal. Glucose of more than 200 mg/dL in a nonstressed, ambulatory subject supports the diagnosis of Diabetes Mellitus. Performed By: #### C BC, PT, PTT, CMP #### [address] Commemt1 Glu2: Cleaned Meter [facility] Comment on above: Result Comment: PERF ORMED BY: [place] [address] PATHOLOGIST GLASS TECHNICIAN/INSTALLER GUIDO ELIZALDE M.D. Performed By: #### C BC, PT, PTT, CMP #### [place] [address] [place] Glucose [Mass/Vol] 283 mg/dL Normal [facility] Comment on above: Result Comment: [place] om Glucose Reference Range is dependent on time and content of last meal. Glucose of more than 200 mg/dL in a nonstressed, ambulatory subject supports the diagnosis of Diabetes Mellitus. Performed By: #### C BC, PT, PTT, CMP #### [address] Commemt1 Glu2: Cleaned Meter [facility] Comment on above: Result Comment: PERF ORMED BY: [place] [address] PATHOLOGIST GLASS TECHNICIAN/INSTALLER GUIDO ELIZALDE M.D. Performed By: #### C BC, PT, PTT, CMP #### [place] [address] [place] Glucose [Mass/Vol] 191 mg/dL Normal [facility] Comment on above: Result Comment: [place] Glucose Reference Range is dependent on time and content of last meal. Glucose of more than 200 mg/dL in a nonstressed, ambulatory subject supports the diagnosis of Diabetes Mellitus. Performed By: #### C BC, PT, PTT, CMP #### [facility] [address] [place] [address] [place] Dipstick and Microscopicon 0 03-25-2022 Appearance (U) Clear Normal Clear [facility] Comment on above: Order Comment: Name Collection Type:: Claire Catheter Performed By: #### C BC, PT, PTT, CMP #### [facility] [address] [place] [address] [place] Bacteria,Urine None Seen Normal None Seen [facility] Comment on above: Order Comment: Name Collection Type:: Claire Catheter Performed By: #### C BC, PT, PTT, CMP #### [facility] [address] [place] [address] [place] Bilirubin,Urine Negative Normal Negative [facility] Comment on above: Order Comment: Name Collection Type:: Claire Catheter Performed By: #### C BC, PT, PTT, CMP #### [facility] [address] [place] [address] [place] Color (U) Yellow Normal Yellow [facility] Comment on above: Order Comment: Name Collection Type:: Claire Catheter Performed By: #### C BC, PT, PTT, CMP #### [facility] [address] [place] [address] [place] Glucose Ql (U) Normal Normal Normal [facility] Comment on above: Order Comment: Name Collection Type:: Claire Catheter Performed By: #### C BC, PT, PTT, CMP #### [facility] [address] [place] [address] [place] Hyaline Casts,Urine 0-8 Normal 0-8 [facility] Comment on above: Order Comment: Name Collection Type:: Claire Catheter Result Comment: PERF ORMED BY: [place] [address] PATHOLOGIST GLASS TECHNICIAN/INSTALLER GUIDO ELIZALDE M.D. Performed By: #### C BC, PT, PTT, CMP #### [facility] [address] [place] [address] [place] Ketones Ql (U) Negative Normal Negative [facility] Comment on above: Order Comment: Name Collection Type:: Claire Catheter Performed By: #### C BC, PT, PTT, CMP #### [facility] [address] Leukocyte esterase Test strip Ql (U) 3+ High Negative [facility] Comment on above: Order Comment: Name Collection Type:: Claire Catheter Performed By: #### C BC, PT, PTT, CMP #### [facility] [address] [place] [address] [place] Nitrite,Urine Negative Normal Negative [facility] Comment on above: Order Comment: Name Collection Type:: Claire Catheter Performed By: #### C BC, PT, PTT, CMP #### [address] Occult Blood,Urine 3+ High Negative [facility] Comment on above: Order Comment: Name Collection Type:: Claire Catheter Result Comment: PERF ORMED BY: [place] [address] PATHOLOGIST GLASS TECHNICIAN/INSTALLER GUIDO ELIZALDE M.D. Performed By: #### C BC, PT, PTT, CMP #### [address] pH (U) 6.0 [pH] Normal 5.0-9.0 [facility] Comment on above: Order Comment: Name Collection Type:: Claire Catheter Performed By: #### C BC, PT, PTT, CMP #### [facility] [address] [place] [address] [place] Protein (U) [Mass/Vol] 30 mg/dL High Negative [facility] Comment on above: Order Comment: Name Collection Type:: Claire Catheter Performed By: #### C BC, PT, PTT, CMP #### [place] [address] [place] RBC,Urine Innumerable High 0-4 [facility] Comment on above: Order Comment: Name Collection Type:: Claire Catheter Performed By: #### C BC, PT, PTT, CMP #### [facility] [address] [place] [address] Specificy Ambrose,Urine 1.024 Normal 1.001-1.030 [facility] Comment on above: Order Comment: Name Collection Type:: Claire Catheter Performed By: #### C BC, PT, PTT, CMP #### [address] Squamous Epithelial Cell,Urine 0-1 Normal 0-2 [facility] Comment on above: Order Comment: Name Collection Type:: Claire Catheter Performed By: #### C BC, PT, PTT, CMP #### [address] Urobilinogen,Urine Normal Normal Normal [facility] Comment on above: Order Comment: Name Collection Type:: Claire Catheter Performed By: #### C BC, PT, PTT, CMP #### [address] WBC,Urine 20-49 High 0-4 [facility] Comment on above: Order Comment: Name Collection Type:: Claire Catheter Performed By: #### C BC, PT, PTT, CMP #### [address] Glucose Poct Glucometerson 0 03-25-2022 Glucose [Mass/Vol] 267 mg/dL Normal [facility] Comment on above: Result Comment: [facility] Glucose Reference Range is dependent on time and content of last meal. Glucose of more than 200 mg/dL in a nonstressed, ambulatory subject supports the diagnosis of Diabetes Mellitus. PERFORMED BY: [place] [address] PATHOLOGIST GLASS TECHNICIAN/INSTALLER GUIDO ELIZALDE M.D. Performed By: #### C BC, PT, PTT, CMP #### [address] Commemt1 Glu2: Cleaned Meter Normal [facility] Comment on above: Result Comment: PERF ORMED BY: [facility] [address] [place] [address] PATHOLOGIST GLASS TECHNICIAN/INSTALLER GUIDO ELIZALDE M.D. Performed By: #### C BC, PT, PTT, CMP #### [address] Glucose [Mass/Vol] 190 mg/dL Normal [facility] Comment on above: Result Comment: [place] Glucose Reference Range is dependent on time and content of last meal. Glucose of more than 200 mg/dL in a nonstressed, ambulatory subject supports the diagnosis of Diabetes Mellitus. Performed By: #### C BC, PT, PTT, CMP #### [address] Commemt1 Glu2: Cleaned Meter [facility] Comment on above: Result Comment: PERF ORMED BY: [place] [address] PATHOLOGIST GLASS TECHNICIAN/INSTALLER GUIDO ELIZALDE M.D. Performed By: #### C BC, PT, PTT, CMP #### [place] [address] [place] Glucose [Mass/Vol] 192 mg/dL Normal [facility] Comment on above: Result Comment: [place] Glucose Reference Range is dependent on time and content of last meal. Glucose of more than 200 mg/dL in a nonstressed, ambulatory subject supports the diagnosis of Diabetes Mellitus. Performed By: #### C BC, PT, PTT, CMP #### [address] Commemt1 Glu2: Cleaned Meter [facility] Comment on above: Result Comment: PERF ORMED BY: [place] [address] PATHOLOGIST GLASS TECHNICIAN/INSTALLER GUIDO ELIZALDE M.D. Performed By: #### C BC, PT, PTT, CMP #### [address] Glucose [Mass/Vol] 146 mg/dL Normal [facility] Comment on above: Result Comment: [place] Glucose Reference Range is dependent on time and content of last meal. Glucose of more than 200 mg/dL in a nonstressed, ambulatory subject supports the diagnosis of Diabetes Mellitus. Performed By: #### C BC, PT, PTT, CMP #### [facility] [address] Urine Cultureon 03-25-2022 Bacteria identified Cx Nom (U) Urine Culture Results 75,000 colonies/ml Mixed Bacterial Skin Contaminants 2 Days PERFORMED BY: [place] [address] PATHOLOGIST GLASS TECHNICIAN/INSTALLER GUIDO ELIZALDE M.D. [facility] Comment on above: Performed By: #### C BC, PT, PTT, CMP #### [address] Basic Metabolic Panelon 03-09 Calcium [Mass/Vol] 9.0 mg/dL Normal 8.2-10.2 [facility] Comment on above: Performed By: #### C BC, PT, PTT, CMP #### [address] Chloride [Moles/Vol] 102 mmol/L Normal 95-114 [facility] Comment on above: Performed By: #### C BC, PT, PTT, CMP #### [address] CO2 [Moles/Vol] 24.3 mmol/L Normal 22.0-30.0 [facility] Comment on above: Performed By: #### C BC, PT, PTT, CMP #### [address] Creatinine [Mass/Vol] 1.00 mg/dL Normal 0.44-1.03 [facility] Comment on above: Performed By: #### C BC, PT, PTT, CMP #### [place] [address] [place] Creatinine Clr Calc Pharmacy 42.78 [facility] Comment on above: Result Comment: PERF ORMED BY: [address] [address] PATHOLOGIST GLASS TECHNICIAN/INSTALLER GUIDO ELIZALDE M.D. Performed By: #### C BC, PT, PTT, CMP #### [address] Estimated GFR ( Froylan > 60 [facility] Comment on above: Result Comment: GFR estimated reference range: According to KDOQI guidelines, <60 ml/min/1.73m2 is sufficient to diagnose a patient with chronic kidney disease. Performed By: #### C BC, PT, PTT, CMP #### [facility] [address] Estimated GFR (Non- Am 53 [facility] Comment on above: Performed By: #### C BC, PT, PTT, CMP #### [address] Glucose [Mass/Vol] 351 mg/dL High 70-100 [facility] Comment on above: Result Comment: [place] om Glucose Reference Range is dependent on time and content of last meal. Glucose of more than 200 mg/dL in a nonstressed, ambulatory subject supports the diagnosis of Diabetes Mellitus. ADA recommended reference range Performed By: #### C BC, PT, PTT, CMP #### [address] Potassium [Moles/Vol] 4.6 mmol/L Normal 3.5-5.1 [facility] Comment on above: Performed By: #### C BC, PT, PTT, CMP #### [address] Sodium [Moles/Vol] 137 mmol/L Normal 136-146 [facility] Comment on above: Performed By: #### C BC, PT, PTT, CMP #### [facility] [address] Urea nitrogen [Mass/Vol] 30 mg/dL High 9-23 [facility] Comment on above: Performed By: #### C BC, PT, PTT, CMP #### [facility] [address] [place] [address] [place] COVID-19 FRMCon 03-24-2022 SARS-CoV-2 (COVID-19) RNA HARMONY+probe Ql (Unsp spec) Negative Normal Negative [facility] Comment on above: Order Comment: Healt hcare Worker?: N Result Comment: Testing for SARS-CoV-2 by RT-PCR This test was developed and its performance characteristics determined by [employer] and validated at the [facility]. This test has not [...] is terminated or revoked sooner. PERFORMED BY: [facility] [address] [place] [address] PATHOLOGIST GLASS TECHNICIAN/INSTALLER GUIDO ELIZALDE M.D. Performed By: #### G LUMARKUS #### Point of Care testing , COVID-19 Positive/NegativeOr dered By: Howard Stauffer on 03-24-2022 SARS-CoV-2 (COVID-19) N gene HARMONY+probe Ql (Resp) Negative Negative [facility] Comment on above: Testing for SARS-CoV -2 by RT-PCR This test was developed and its performance characteristics determined by [employer] and validated at the [facility]. This test has not [...] Basophils (Bld) [#/Vol] 0.0 10*3/uL Normal 0.0-0.2 [facility] Comment on above: Result Comment: PERF ORMED BY: [place] [address] PATHOLOGIST GLASS TECHNICIAN/INSTALLER GUIDO ELIZALDE M.D. Performed By: #### C BC, PT, PTT, CMP #### [address] Basophils/100 WBC (Bld) 0.1 % Normal . [facility] Comment on above: Performed By: #### C BC, PT, PTT, CMP #### [address] Eosinophils (Bld) [#/Vol] 0.0 10*3/uL Normal 0.0-0.45 [facility] Comment on above: Performed By: #### C BC, PT, PTT, CMP #### [address] Eosinophils/100 WBC (Bld) 0.0 % Normal . [facility] Comment on above: Performed By: #### C BC, PT, PTT, CMP #### [facility] [address] [place] [address] Erythrocyte distribution width (RBC) [Ratio] 13.5 % Normal 11.9-15.3 [facility] Comment on above: Performed By: #### C BC, PT, PTT, CMP #### [address] Hematocrit (Bld) [Volume fraction] 41.1 % Normal 34.0-46.4 [facility] Comment on above: Performed By: #### C BC, PT, PTT, CMP #### [address] Hemoglobin (Bld) [Mass/Vol] 13.5 g/dL Normal 11.8-15.4 [facility] Comment on above: Performed By: #### C BC, PT, PTT, CMP #### [address] Lymphocytes (Bld) [#/Vol] 0.8 10*3/uL Low 1.00-4.8 [facility] Comment on above: Performed By: #### C BC, PT, PTT, CMP #### [address] Lymphocytes/100 WBC (Bld) 11.1 % Normal . [facility] Comment on above: Performed By: #### C BC, PT, PTT, CMP #### [address] MCH (RBC) [Entitic mass] 30.0 pg Normal 24.7-34.3 [facility] Comment on above: Performed By: #### C BC, PT, PTT, CMP #### [address] MCV (RBC) [Entitic vol] 91.0 fL Normal 80-100 [facility] Comment on above: Performed By: #### C BC, PT, PTT, CMP #### [address] Mean Corpuscular HGB Conc 33.0 g/dL Normal 32.0-35.0 [facility] Comment on above: Performed By: #### C BC, PT, PTT, CMP #### [address] Monocytes (Bld) [#/Vol] 0.1 10*3/uL Normal 0.0-0.8 [facility] Comment on above: Performed By: #### C BC, PT, PTT, CMP #### [facility] [address] [place] [address] [place] Monocytes/100 WBC (Bld) 0.8 % Normal . [facility] Comment on above: Performed By: #### C BC, PT, PTT, CMP #### [facility] [address] [place] [address] [place] Neutrophils (Bld) [#/Vol] 6.6 10*3/uL Normal 1.8-7.7 [facility] Comment on above: Performed By: #### C BC, PT, PTT, CMP #### [facility] [address] [place] [address] [place] Neutrophils/100 WBC (Bld) 88.0 % Normal . [facility] Comment on above: Performed By: #### C BC, PT, PTT, CMP #### [facility] [address] [place] [address] [place] Nucleated RBC/100 WBC (Bld) [Ratio] 0.0 % Normal 0-0.5 [facility] Comment on above: Performed By: #### C BC, PT, PTT, CMP #### [facility] [address] [place] [address] [place] Platelet mean volume (Bld) [Entitic vol] 8.1 fL Normal 6.3-10.7 [facility] Comment on above: Performed By: #### C BC, PT, PTT, CMP #### [facility] [address] [place] [address] [place] Platelets (Bld) [#/Vol] 252 10*3/uL Normal 150-450 [facility] Comment on above: Performed By: #### C BC, PT, PTT, CMP #### [facility] [address] [place] [address] [place] RBC (Bld) [#/Vol] 4.52 10*6/uL Normal 3.60-5.00 [facility] Comment on above: Performed By: #### C BC, PT, PTT, CMP #### [facility] [address] [place] [address] [place] WBC (Bld) [#/Vol] 7.5 10*3/uL Normal 4.5-11.0 [facility] Comment on above: Performed By: #### C BC, PT, PTT, CMP #### [facility] [address] [place] [address] [place] Glucose Glucometer (BldC) [M ass/Vol]Ordered By: Perlita Gautam on 03-24-2022 Glucose [Mass/Vol] 218 mg/dL [facility] Comment on above: Random Glucose Refer ence Range is dependent on time and content of last meal. Glucose of more than 200 mg/dL in a nonstressed, ambulatory subject supports the diagnosis of Diabetes Mellitus. Glucose Poct Glucometerson 0 03-24-2022 Glucose [Mass/Vol] 224 mg/dL Normal [facility] Comment on above: Result Comment: [place] om Glucose Reference Range is dependent on time and content of last meal. Glucose of more than 200 mg/dL in a nonstressed, ambulatory subject supports the diagnosis of Diabetes Mellitus. PERFORMED BY: [place] [address] PATHOLOGIST GLASS TECHNICIAN/INSTALLER GUIDO ELIZALDE M.D. Performed By: #### C BC, PT, PTT, CMP #### [address] Commemt1 Glu2: Cleaned Meter [facility] Comment on above: Result Comment: PERF ORMED BY: [place] [address] PATHOLOGIST GLASS TECHNICIAN/INSTALLER GUIDO ELIZALDE M.D. Performed By: #### C BC, PT, PTT, CMP #### [address] Glucose [Mass/Vol] 306 mg/dL Normal [facility] Comment on above: Result Comment: [place] om Glucose Reference Range is dependent on time and content of last meal. Glucose of more than 200 mg/dL in a nonstressed, ambulatory subject supports the diagnosis of Diabetes Mellitus. Performed By: #### C BC, PT, PTT, CMP #### [facility] [address] [place] [id number] [facility] Commemt1 Glu2: Cleaned Meter Normal [facility] Comment on above: Result Comment: PERF ORMED BY: [place] [address] PATHOLOGIST GLASS TECHNICIAN/INSTALLER GUIDO ELIZALDE M.D. Performed By: #### C BC, PT, PTT, CMP #### [address] Glucose [Mass/Vol] 392 mg/dL Normal [facility] Comment on above: Result Comment: [place] Glucose Reference Range is dependent on time and content of last meal. Glucose of more than 200 mg/dL in a nonstressed, ambulatory subject supports the diagnosis of Diabetes Mellitus. Performed By: #### C BC, PT, PTT, CMP #### [address] Glucose [Mass/Vol] 277 mg/dL Normal [facility] Comment on above: Result Comment: [place] Glucose Reference Range is dependent on time and content of last meal. Glucose of more than 200 mg/dL in a nonstressed, ambulatory subject supports the diagnosis of Diabetes Mellitus. PERFORMED BY: [place] [address] PATHOLOGIST GLASS TECHNICIAN/INSTALLER GUIDO ELIZALDE M.D. Performed By: #### C BC, PT, PTT, CMP #### [address] [address] Glucose [Mass/Vol] 218 mg/dL Normal [facility] Comment on above: Result Comment: [place] Glucose Reference Range is dependent on time and content of last meal. Glucose of more than 200 mg/dL in a nonstressed, ambulatory subject supports the diagnosis of Diabetes Mellitus. PERFORMED BY: [place] [address] PATHOLOGIST GLASS TECHNICIAN/INSTALLER GUIDO ELIZALDE M.D. Performed By: #### C BC, PT, PTT, CMP #### [address] [address] [facility] Laboratory - Microbiology an d Antimicrobial susceptibilityOrdered By: Howard Stauffer on 03-24-2022 SARS-CoV-2 (COVID-19) RNA HARMONY+probe Ql (Unsp spec) N/A [facility] Activated partial thrombopla stin time (aPTT) in platelet poor plasma by coagulation aOrdered By: Howard Stauffer on 03-23-2022 aPTT Coag (PPP) [Time] 32.2 s 25.1-36.5 [facility] Albumin [Mass/volume] in Ser um or PlasmaOrdered By: Howard Stauffer on 03-23-2022 Albumin [Mass/Vol] 3.6 g/dL 3.2-5.5 [facility] Basophils Auto (Bld) [#/Vol] Ordered By: Howard Stauffer on 03-23-2022 Basophils (Bld) [#/Vol] 0.1 10*3/uL 0.0-0.2 [facility] Basophils/100 WBC Auto (Bld) Ordered By: Howard Stauffer on 03-23-2022 Basophils/100 WBC (Bld) 0.6 % [facility] Bilirubin Test strip Ql (U)O rdered By: Howard Stauffer on 03-23-2022 Bilirubin Ql (U) Negative Negative [facility] Blood hemoglobin measurement (mass/volume)Ordered By: Howard Stauffer on 03-23-2022 Hemoglobin (Bld) [Mass/Vol] 14.3 g/dL 11.8-15.4 [facility] Blood leukocytes automated c ount (number/volume)Ordered By: Howard Stauffer on 03-23-2022 WBC (Bld) [#/Vol] 8.6 10*3/uL 4.5-11.0 [facility] COVID-19 Antigenon 2 COVID-19 Antigen [facility] [...] developed and its performance characteristic determined by [employer] and validated at [facility]. This test has not [...] for SARS Antigen by [employer] PERFORMED BY: [place] [address] PATHOLOGIST GLASS TECHNICIAN/INSTALLER GUIDO ELIZALDE M.D. Normal [facility] Comment on above: Performed By: #### C BC, PT, PTT, CMP #### [address] COVID-19 SOFIAOrdered By: Jed Stauffer on 03-23-2022 SARS-CoV+SARS-CoV-2 (COVID-19) Ag IA.rapid Ql (Resp) Negative Negative [facility] Comment on above: This is a duplicate Cecily SARS Antigen (DRAKE) result to be used for statistical tracking purpose only. Color Auto (U)Ordered By: Jed Stauffer on 03-23-2022 Color (U) Yellow Yellow [facility] Complete Blood Count Auto Di ffon 03-23-2022 Basophils (Bld) [#/Vol] 0.1 10*3/uL Normal 0.0-0.2 [facility] Comment on above: Result Comment: PERF ORMED BY: [place] [address] PATHOLOGIST GLASS TECHNICIAN/INSTALLER GUIDO ELIZALDE M.D. Performed By: #### C BC, PT, PTT, CMP #### [address] Basophils/100 WBC (Bld) 0.6 % Normal . [facility] Comment on above: Performed By: #### C BC, PT, PTT, CMP #### [address] Eosinophils (Bld) [#/Vol] 0.2 10*3/uL Normal 0.0-0.45 [facility] Comment on above: Performed By: #### C BC, PT, PTT, CMP #### [address] Eosinophils/100 WBC (Bld) 2.3 % Normal . [facility] Comment on above: Performed By: #### C BC, PT, PTT, CMP #### [address] Erythrocyte distribution width (RBC) [Ratio] 13.8 % Normal 11.9-15.3 [facility] Comment on above: Performed By: #### C BC, PT, PTT, CMP #### [address] Hematocrit (Bld) [Volume fraction] 43.4 % Normal 34.0-46.4 [facility] Comment on above: Performed By: #### C BC, PT, PTT, CMP #### [address] Hemoglobin (Bld) [Mass/Vol] 14.3 g/dL Normal 11.8-15.4 [facility] Comment on above: Performed By: #### C BC, PT, PTT, CMP #### [address] Lymphocytes (Bld) [#/Vol] 3.3 10*3/uL Normal 1.00-4.8 [facility] Comment on above: Performed By: #### C BC, PT, PTT, CMP #### [facility] [address] Lymphocytes/100 WBC (Bld) 38.7 % Normal . [facility] Comment on above: Performed By: #### C BC, PT, PTT, CMP #### [facility] [address] MCH (RBC) [Entitic mass] 29.9 pg Normal 24.7-34.3 [facility] Comment on above: Performed By: #### C BC, PT, PTT, CMP #### [facility] [address] MCV (RBC) [Entitic vol] 91.0 fL Normal 80-100 [facility] Comment on above: Performed By: #### C BC, PT, PTT, CMP #### [address] Mean Corpuscular HGB Conc 32.9 g/dL Normal 32.0-35.0 [facility] Comment on above: Performed By: #### C BC, PT, PTT, CMP #### [place] [address] [place] Monocytes (Bld) [#/Vol] 0.8 10*3/uL Normal 0.0-0.8 [facility] Comment on above: Performed By: #### C BC, PT, PTT, CMP #### [place] [address] [place] Monocytes/100 WBC (Bld) 9.2 % Normal . [facility] Comment on above: Performed By: #### C BC, PT, PTT, CMP #### [place] [address] [place] Neutrophils (Bld) [#/Vol] 4.2 10*3/uL Normal 1.8-7.7 [facility] Comment on above: Performed By: #### C BC, PT, PTT, CMP #### [place] [address] [place] Neutrophils/100 WBC (Bld) 49.2 % Normal . [facility] Comment on above: Performed By: #### C BC, PT, PTT, CMP #### [address] Nucleated RBC/100 WBC (Bld) [Ratio] 0.0 % Normal 0-0.5 [facility] Comment on above: Performed By: #### C BC, PT, PTT, CMP #### [address] Platelet mean volume (Bld) [Entitic vol] 7.8 fL Normal 6.3-10.7 [facility] Comment on above: Performed By: #### C BC, PT, PTT, CMP #### [address] Platelets (Bld) [#/Vol] 295 10*3/uL Normal 150-450 [facility] Comment on above: Performed By: #### C BC, PT, PTT, CMP #### [address] RBC (Bld) [#/Vol] 4.77 10*6/uL Normal 3.60-5.00 [facility] Comment on above: Performed By: #### C BC, PT, PTT, CMP #### [address] WBC (Bld) [#/Vol] 8.6 10*3/uL Normal 4.5-11.0 [facility] Comment on above: Performed By: #### C BC, PT, PTT, CMP #### [address] Comprehensive Metabolic Pane sadiq 03-23-2022 Albumin [Mass/Vol] 3.6 g/dL Normal 3.2-5.5 [facility] Comment on above: Performed By: #### C BC, PT, PTT, CMP #### [address] Albumin/Globulin [Mass ratio] 1.1 {ratio} Normal [facility] Comment on above: Performed By: #### C BC, PT, PTT, CMP #### [facility] [address] [place] [address] [place] ALP [Catalytic activity/Vol] 48 U/L Normal 32-92 [facility] Comment on above: Performed By: #### C BC, PT, PTT, CMP #### [facility] [address] [place] [address] [place] ALT [Catalytic activity/Vol] 18 U/L Normal 10-60 [facility] Comment on above: Performed By: #### C BC, PT, PTT, CMP #### [facility] [address] [place] [address] [place] AST [Catalytic activity/Vol] 22 U/L Normal 10-42 [facility] Comment on above: Performed By: #### C BC, PT, PTT, CMP #### [facility] [address] [place] [address] [place] Bilirubin [Mass/Vol] 0.6 mg/dL Normal 0.3-1.2 [facility] Comment on above: Performed By: #### C BC, PT, PTT, CMP #### [facility] [address] [place] [address] [place] Calcium [Mass/Vol] 9.6 mg/dL Normal 8.2-10.2 [facility] Comment on above: Performed By: #### C BC, PT, PTT, CMP #### [facility] [address] [place] [address] [place] Chloride [Moles/Vol] 103 mmol/L Normal 95-114 [facility] Comment on above: Performed By: #### C BC, PT, PTT, CMP #### [facility] [address] [place] [address] [place] CO2 [Moles/Vol] 27.4 mmol/L Normal 22.0-30.0 [facility] Comment on above: Performed By: #### C BC, PT, PTT, CMP #### [facility] [address] [place] [address] [place] Creatinine [Mass/Vol] 0.92 mg/dL Normal 0.44-1.03 [facility] Comment on above: Performed By: #### C BC, PT, PTT, CMP #### [facility] [address] Creatinine Clr Calc Pharmacy 46.80 [facility] Comment on above: Result Comment: PERF ORMED BY: [place] [address] PATHOLOGIST GLASS TECHNICIAN/INSTALLER GUIDO ELIZALDE M.D. Performed By: #### C BC, PT, PTT, CMP #### [facility] [address] Estimated GFR ( Froylan > 60 [facility] Comment on above: Result Comment: GFR estimated reference range: According to KDOQI guidelines, <60 ml/min/1.73m2 is sufficient to diagnose a patient with chronic kidney disease. Performed By: #### C BC, PT, PTT, CMP #### [facility] [address] Estimated GFR (Non- Am 59 [facility] Comment on above: Performed By: #### C BC, PT, PTT, CMP #### [address] Globulin (S) [Mass/Vol] 3.2 g/dL Normal [facility] Comment on above: Performed By: #### C BC, PT, PTT, CMP #### [address] Glucose [Mass/Vol] 114 mg/dL High 70-100 [facility] Comment on above: Result Comment: [place] Glucose Reference Range is dependent on time and content of last meal. Glucose of more than 200 mg/dL in a nonstressed, ambulatory subject supports the diagnosis of Diabetes Mellitus. ADA recommended reference range Performed By: #### C BC, PT, PTT, CMP #### [facility] [address] Potassium [Moles/Vol] 4.4 mmol/L Normal 3.5-5.1 [facility] Comment on above: Performed By: #### C BC, PT, PTT, CMP #### [facility] [address] [place] [address] [place] Protein [Mass/Vol] 6.8 g/dL Normal 6.1-7.9 [facility] Comment on above: Performed By: #### C BC, PT, PTT, CMP #### [facility] [address] Sodium [Moles/Vol] 141 mmol/L Normal 136-146 [facility] Comment on above: Performed By: #### C BC, PT, PTT, CMP #### [facility] [address] Urea nitrogen [Mass/Vol] 24 mg/dL High - [facility] Comment on above: Performed By: #### C BC, PT, PTT, CMP #### [facility] [address] [place] [address] [place] Creatinine and Glomerular fi ltration rate.predicted panel (S/P/Bld)Ordered By: Howard Stauffer on 03-23-2022 Creatinine [Mass/Vol] 0.92 mg/dL 0.44-1.03 [facility] ECG 12 lead ECGon 03-23-2022 ECG 12 lead ECG [facility] [place] [address] [place] [address] Electrocardiograph Report Signed Patient: Saeed Sarabia MR#: [id number] : 1940 Acct:[id number] Age/Sex: 81 / F ADM Date: 03/24/22 Loc: Room: [address] [place] [address] Type: DIS INOo Attending Dr: Rupert Anthony [...] longer present Confirmed by Howard Stauffer DO ([id number]) on 03/24/2022 2:06:42 AM Referred By: Electronically Signed By:Howard Stauffer DO Transcribed By: MUS Signed By Howard Stauffer DO 03/24 0206 Normal [facility] Eosinophils Auto (Bld) [#/Vo l]Ordered By: Howard Stauffer on 03-23-2022 Eosinophils (Bld) [#/Vol] 0.2 10*3/uL 0.0-0.45 [facility] Eosinophils/100 WBC Auto (Bl d)Ordered By: Howard Stauffer on 03-23-2022 Eosinophils/100 WBC (Bld) 2.3 % [facility] Erythrocyte distribution wid th Auto (RBC) [Ratio]Ordered By: Howard Stauffer on 03-23-2022 Erythrocyte distribution width (RBC) [Ratio] 13.8 % 11.9-15.3 [facility] Estimated glomerular filtrat ion rate (GFR) non- AmericanOrdered By: Howard Stauffer on 03-23-2022 GFR/1.73 sq M.predicted among non-blacks MDRD (S/P/Bld) [Vol rate/Area] 59 mL/Min [facility] Globulin Calc (S) [Mass/Vol] Ordered By: Howard Stauffer on 03-23-2022 Globulin (S) [Mass/Vol] 3.2 g/dL F [facility] Hematocrit Auto (Bld) [Volum e fraction]Ordered By: Howard Stauffer on 03-23-2022 Hematocrit (Bld) [Volume fraction] 43.4 % 34.0-46.4 [facility] Ketones Auto test strip (U) [Mass/Vol]Ordered By: Howard Stauffer on 03-23-2022 Ketones (U) [Mass/Vol] Trace Negative [facility] - CoagulationOrde red By: Howard Stauffer on 03-23-2022 PT Coag (PPP) [Time] 15.7 s 9.0-12.9 [facility] Laboratory - Hematology and Cell countsOrdered By: Howard Stauffer on 03-23-2022 Nucleated RBC/100 WBC (Bld) [Ratio] 0.0 % 0-0.5 [facility] Lymphocytes Auto (Bld) [#/Vo l]Ordered By: Howard Stauffer on 03-23-2022 Lymphocytes (Bld) [#/Vol] 3.3 10*3/uL 1.00-4.8 [facility] Lymphocytes/100 WBC Auto (Bl d)Ordered By: Howard Stauffer on 03-23-2022 Lymphocytes/100 WBC (Bld) 38.7 % [facility] MCH Auto (RBC) [Entitic mass ]Ordered By: Howard Stauffer on 03-23-2022 MCH (RBC) [Entitic mass] 29.9 pg 24.7-34.3 [facility] MCHC Auto (RBC) [Mass/Vol]Or dered By: Howard Stauffer on 03-23-2022 MCHC (RBC) [Mass/Vol] 32.9 g/dL 32.0-35.0 [facility] MCV Auto (RBC) [Entitic vol] Ordered By: Howard Stauffer on 03-23-2022 MCV (RBC) [Entitic vol] 91.0 fL 80-100 [facility] Monocytes Auto (Bld) [#/Vol] Ordered By: Howard Stauffer on 03-23-2022 Monocytes (Bld) [#/Vol] 0.8 10*3/uL 0.0-0.8 [facility] Monocytes/100 WBC Auto (Bld) Ordered By: Howard Stauffer on 03-23-2022 Monocytes/100 WBC (Bld) 9.2 % [facility] Neutrophils Auto (Bld) [#/Vo l]Ordered By: Howard Stauffer on 03-23-2022 Neutrophils (Bld) [#/Vol] 4.2 10*3/uL 1.8-7.7 [facility] Neutrophils/100 WBC Auto (Bl d)Ordered By: Howard Stauffer on 03-23-2022 Neutrophils/100 WBC (Bld) 49.2 % [facility] Nitrite Test strip Ql (U)Ord ered By: Howard Stauffer on 03-23-2022 Nitrite Ql (U) Negative Negative [facility] No Panel InformationOrdered By: Howard Stauffer on 03-23-2022 Estimated GFR () > 60 mL/Min [facility] Comment on above: GFR estimated refere nce range: According to KDOQI guidelines, <60 ml/min/1.73m2 is sufficient to diagnose a patient with chronic kidney disease. Pharmacy Creatinine Clearance (Chem 46.80 [facility] SARS Antigen (LFIA) [facility] SARS Antigen (LFIA) [facility] Partial Thromboplastin Timeo n 03-23-2022 aPTT Coag (Bld) [Time] 32.2 s Normal 25.1-36.5 Fi [facility] Comment on above: Result Comment: PERF ORMED BY: [place] [address] PATHOLOGIST GLASS TECHNICIAN/INSTALLER GUIDO ELIZALDE M.D. Performed By: #### C BC, PT, PTT, CMP #### [address] Platelet mean volume Auto (B ld) [Entitic vol]Ordered By: Howard Stauffer on 03-23-2022 Platelet mean volume (Bld) [Entitic vol] 7.8 fL 6.3-10.7 [facility] Platelet poor plasma interna tional normalized ratio (INR) by coagulation assay (relatOrdered By: Howard Stauffer on 03-23-2022 INR Coag (PPP) [Relative time] 1.4 {INR} [facility] Comment on above: INR [...] 03-23-2022 Platelets (Bld) [#/Vol] 295 10*3/uL 150-450 [facility] Protein Auto test strip (U) [Mass/Vol]Ordered By: Howard Stauffer on 03-23-2022 Protein (U) [Mass/Vol] Negative Negative Fi [facility] Protein [Mass/volume] in Ser um or PlasmaOrdered By: Howard Stauffer on 03-23-2022 Protein [Mass/Vol] 6.8 g/dL 6.1-7.9 [facility] Prothrombin Time INRon 03-23 INR Coag (PPP) [Relative time] 1.4 {INR} Normal [facility] Comment on above: Result [...] PT, PTT, CMP #### [facility] [address] PT Coag (PPP) [Time] 15.7 s High 9.0-12.9 [facility] Comment on above: Performed By: #### C BC, PT, PTT, CMP #### [facility] [address] RBC Auto (Bld) [#/Vol]Ordere d By: Howard tSauffer on 03-23-2022 RBC (Bld) [#/Vol] 4.77 10*6/uL 3.60-5.00 [facility] Serum or plasma alanine [place] otransferase measurement without P-5'-P (enzymatic activiOrdered By: Howard Stauffer on 03-23-2022 ALT No additional P-5'-P [Catalytic activity/Vol] 18 U/L 10-60 [facility] Serum or plasma albumin/glob ulin mass ratioOrdered By: Howard Stauffer on 03-23-2022 Albumin/Globulin [Mass ratio] 1.1 {ratio} [facility] Serum or plasma alkaline dolly sphatase measurement (enzymatic activity/volume)Ordered By: Howard Stauffer on 03-23-2022 ALP [Catalytic activity/Vol] 48 U/L 32-92 [facility] Serum or plasma aspartate am inotransferase measurement (enzymatic activity/volume)Ordered By: Howard Stauffer on 03-23-2022 AST [Catalytic activity/Vol] 22 U/L 10-42 [facility] Serum or plasma calcium nakul urement (mass/volume)Ordered By: Howard Stauffer on 03-23-2022 Calcium [Mass/Vol] 9.6 mg/dL 8.2-10.2 [facility] Serum or plasma chloride juliana surement (moles/volume)Ordered By: Howard Stauffer on 03-23-2022 Chloride [Moles/Vol] 103 mmol/L 95-114 [facility] Serum or plasma glucose nakul urement (mass/volume)Ordered By: Howard Stauffer on 03-23-2022 Glucose [Mass/Vol] 114 mg/dL 70-100 [facility] Comment on above: ADA recommended refe rence range [place] Glucose Reference Range is dependent on time and content of last meal. Glucose of more than 200 mg/dL in a nonstressed, ambulatory subject supports the diagnosis of Diabetes Mellitus. Serum or plasma potassium me asurement (moles/volume)Ordered By: Howard Stauffer on 03-23-2022 Potassium [Moles/Vol] 4.4 mmol/L 3.5-5.1 [facility] Serum or plasma sodium measu rement (moles/volume)Ordered By: Howard Stauffer on 03-23-2022 Sodium [Moles/Vol] 141 mmol/L 136-146 [facility] Serum or plasma total biliru bin measurement (mass/volume)Ordered By: Howard Stauffer on 03-23-2022 Bilirubin [Mass/Vol] 0.6 mg/dL 0.3-1.2 [facility] Serum or plasma total carbon dioxide measurement (moles/volume)Ordered By: Howard Stauffer on 03-23-2022 CO2 [Moles/Vol] 27.4 mmol/L 22.0-30.0 [facility] Serum or plasma urea nitroge n measurement (mass/volume)Ordered By: Howard Stauffer on 03-23-2022 Urea nitrogen [Mass/Vol] 24 mg/dL 9 [facility] Cecily Ag Negativeon 03-23-20 22 Cecily Ag Negative Negative Normal Negative [facility] Comment on above: Result Comment: This is a duplicate Cecily SARS Antigen (DRAKE) result to be used for statistical tracking purpose only. PERFORMED BY: [place] [address] PATHOLOGIST GLASS TECHNICIAN/INSTALLER GUIDO ELIZALDE M.D. Performed By: #### G INOCENTE #### Point of Care testing , Specific gravity Auto test s trip (U) [Rel density]Ordered By: Howard Stauffer on 03-23-2022 Specific gravity (U) [Rel density] 1.017 1.001-1.030 [facility] Troponin I High Sensitivityo n 03-23-2022 Troponin I High Sensitivity 6 pg/mL Normal [facility] Comment on above: Result Comment: PERF ORMED BY: [place] [address] PATHOLOGIST GLASS TECHNICIAN/INSTALLER GUIDO ELIZALDE M.D. Performed By: #### C BC, PT, PTT, CMP #### [facility] [address] Troponin I.cardiac [Mass/vol ume] in Serum or Plasma by High sensitivity methodOrdered By: Howard Stauffer on 03-23-2022 Troponin I.cardiac High sensitivity method [Mass/Vol] 6 pg/mL 0 [facility] Urinalysison 03-23-2022 Appearance (U) Clear Normal Clear [facility] Comment on above: Order Comment: Name Collection Type:: Straight Catheter Performed By: #### U A #### [facility] [address] [place] [address] [place] Bilirubin,Urine Negative Normal Negative [facility] Comment on above: Order Comment: Name Collection Type:: Straight Catheter Performed By: #### U A #### [facility] [address] [place] [address] [place] Color (U) Yellow Normal Yellow [facility] Comment on above: Order Comment: Name Collection Type:: Straight Catheter Performed By: #### U A #### [address] Glucose Ql (U) Normal Normal Normal [facility] Comment on above: Order Comment: Name Collection Type:: Straight Catheter Performed By: #### U A #### [address] Ketones Ql (U) Trace High Negative [facility] Comment on above: Order Comment: Name Collection Type:: Straight Catheter Performed By: #### U A #### [address] Leukocyte esterase Test strip Ql (U) Negative Normal Negative [facility] Comment on above: Order Comment: Name Collection Type:: Straight Catheter Performed By: #### U A #### [address] Nitrite,Urine Negative Normal Negative [facility] Comment on above: Order Comment: Name Collection Type:: Straight Catheter Performed By: #### U A #### [address] Occult Blood,Urine Negative Normal Negative [facility] Comment on above: Order Comment: Name Collection Type:: Straight Catheter Result Comment: PERF ORMED BY: [place] [address] PATHOLOGIST GLASS TECHNICIAN/INSTALLER GUIDO ELIZALDE M.D. Performed By: #### U A #### [place] [address] [place] pH (U) 7.5 [pH] Normal 5.0-9.0 [facility] Comment on above: Order Comment: Name Collection Type:: Straight Catheter Performed By: #### U A #### [place] [address] [place] Protein,Urine Negative Normal Negative [facility] Comment on above: Order Comment: Name Collection Type:: Straight Catheter Performed By: #### U A #### [address] Specificy [place],Urine 1.017 Normal 1.001-1.030 [facility] Comment on above: Order Comment: Name Collection Type:: Straight Catheter Performed By: #### U A #### [facility] [address] [place] [id number] [place] Urobilinogen,Urine Normal Normal Normal [facility] Comment on above: Order Comment: Name Collection Type:: Straight Catheter Performed By: #### U A #### [facility] [address] [place] [id number] [place] Urine clarity by refractomet ry automatedOrdered By: Howard Stauffer on 03-23-2022 Clarity Refractometry automated (U) Clear Clear [facility] Urine glucose measurement by automated test strip (mass/volume)Ordered By: Howard Stauffer on 03-23-2022 Glucose Auto test strip (U) [Mass/Vol] Normal mg/dL Normal [facility] Urine hemoglobin detection b y automated test stripOrdered By: Howard Stauffer on 03-23-2022 Hemoglobin Auto test strip Ql (U) Negative Negative [facility] Urine leukocyte esterase det ection by automated test stripOrdered By: Howard Stauffer on 03-23-2022 Leukocyte esterase Auto test strip Ql (U) Negative Negative [facility] Urobilinogen Auto test strip (U) [Mass/Vol]Ordered By: Howard Stauffer on 03-23-2022 Urobilinogen (U) [Mass/Vol] Normal mg/dL Normal [facility] XR chest 1V portableon 03-23 XR chest 1V portable [facility] Main [place] [address] [place] [id number] XRay Report Signed Patient: Saeed Sarabia MR#: [id number] : 1940 Acct:[id number] Age/Sex: 81 / F ADM Date: 03/23/22 Loc: ER Room: Type: [facility] ER Attending Dr: Copies to: Howard [...] Donny Wolf M.D.03/23/2022 8:03 PM Dictation Location: [place] [address] Transcribed By: [facility] 03/23/222002 Dictated By: Donny Wolf II, MD 03/23/222001 Signed By: 03/23/222002 Normal [facility] XR knee RT 4V*on 03-23-2022 XR knee RT 4V* [facility] [place] [address] [place] [address] XRay Report Signed Patient: Saeed Sarabia MR#: [id number] : 1940 Acct:[id number] Age/Sex: 81 / F ADM Date: 03/23/22 Loc: ER Room: Type: [facility] ER Attending Dr: Copies to: Howard [...] Donny Wolf M.D.03/23/2022 8:02 PM Dictation Location: [place] [address] Transcribed By: [facility] 03/23/222001 Dictated By: Donny Wolf II, MD 03/23/222000 Signed By: 03/23/222001 Normal [facility] pH Auto test strip (U)Ordere d By: Howard Stauffer on 03-23-2022 pH (U) 7.5 [pH] 5.0-9.0 [facility] Basic Metabolic Panelon Calcium [Mass/Vol] 9.6 mg/dL Normal 8.2-10.2 [facility] Comment on above: Result Comment: PERF ORMED BY: [place] [address] PATHOLOGIST GLASS TECHNICIAN/INSTALLER GUIDO ELIZALDE M.D. Performed By: #### C BC, PT, PTT, CMP #### [facility] [address] [place] [address] [place] Chloride [Moles/Vol] 99 mmol/L Normal 95-114 [facility] Comment on above: Performed By: #### C BC, PT, PTT, CMP #### [facility] [address] [place] [address] [place] CO2 [Moles/Vol] 26.1 mmol/L Normal 22.0-30.0 [facility] Comment on above: Performed By: #### C BC, PT, PTT, CMP #### [facility] [address] [place] [address] [place] Creatinine [Mass/Vol] 1.04 mg/dL High 0.44-1.03 [facility] Comment on above: Performed By: #### C BC, PT, PTT, CMP #### [facility] [address] [place] [address] [place] Estimated GFR ( Froylan > 60 Normal [facility] Comment on above: Result Comment: GFR estimated reference range: According to KDOQI guidelines, <60 ml/min/1.73m2 is sufficient to diagnose a patient with chronic kidney disease. Performed By: #### C BC, PT, PTT, CMP #### [address] Estimated GFR (Non- Am 51 Normal [facility] Comment on above: Performed By: #### C BC, PT, PTT, CMP #### [address] Glucose [Mass/Vol] 134 mg/dL High 70-100 [facility] Comment on above: Result Comment: [facility] Glucose Reference Range is dependent on time and content of last meal. Glucose of more than 200 mg/dL in a nonstressed, ambulatory subject supports the diagnosis of Diabetes Mellitus. ADA recommended reference range Performed By: #### C BC, PT, PTT, CMP #### [address] Potassium [Moles/Vol] 4.8 mmol/L Normal 3.5-5.1 [facility] Comment on above: Performed By: #### C BC, PT, PTT, CMP #### [address] Sodium [Moles/Vol] 139 mmol/L Normal 136-146 [facility] Comment on above: Performed By: #### C BC, PT, PTT, CMP #### [address] Urea nitrogen [Mass/Vol] 21 mg/dL Normal 9-23 [facility] Comment on above: Performed By: #### C BC, PT, PTT, CMP #### [address] Basophils Auto (Bld) [#/Vol] Ordered By: Atul Vera on 03-09-2022 Basophils (Bld) [#/Vol] 0.1 10*3/uL 0.0-0.2 [facility] Basophils/100 WBC Auto (Bld) Ordered By: Atul Vera on 03-09-2022 Basophils/100 WBC (Bld) 0.8 % [facility] Blood hemoglobin measurement (mass/volume)Ordered By: Atul Vera on 03-09-2022 Hemoglobin (Bld) [Mass/Vol] 13.7 g/dL 11.8-15.4 [facility] Blood leukocytes automated c ount (number/volume)Ordered By: Atul Vera on 03-09-2022 WBC (Bld) [#/Vol] 6.4 10*3/uL 4.5-11.0 [facility] Complete Blood Count Auto Di ffon 03-09-2022 Basophils (Bld) [#/Vol] 0.1 10*3/uL Normal 0.0-0.2 [facility] Comment on above: Result Comment: PERF ORMED BY: [place] [address] PATHOLOGIST GLASS TECHNICIAN/INSTALLER GUIDO ELIZALDE M.D. Performed By: #### C BC, PT, PTT, CMP #### [facility] [address] Basophils/100 WBC (Bld) 0.8 % Normal . [facility] Comment on above: Performed By: #### C BC, PT, PTT, CMP #### [facility] [address] [place] [address] [place] Eosinophils (Bld) [#/Vol] 0.1 10*3/uL Normal 0.0-0.45 [facility] Comment on above: Performed By: #### C BC, PT, PTT, CMP #### [place] [address] [place] Eosinophils/100 WBC (Bld) 1.9 % Normal . [facility] Comment on above: Performed By: #### C BC, PT, PTT, CMP #### [facility] [address] [place] [address] [place] Erythrocyte distribution width (RBC) [Ratio] 13.8 % Normal 11.9-15.3 [facility] Comment on above: Performed By: #### C BC, PT, PTT, CMP #### [facility] [address] Hematocrit (Bld) [Volume fraction] 41.8 % Normal 34.0-46.4 [facility] Comment on above: Performed By: #### C BC, PT, PTT, CMP #### [facility] [address] Hemoglobin (Bld) [Mass/Vol] 13.7 g/dL Normal 11.8-15.4 [facility] Comment on above: Performed By: #### C BC, PT, PTT, CMP #### [facility] [address] Lymphocytes (Bld) [#/Vol] 2.1 10*3/uL Normal 1.00-4.8 [facility] Comment on above: Performed By: #### C BC, PT, PTT, CMP #### [facility] [address] Lymphocytes/100 WBC (Bld) 32.8 % Normal . [facility] Comment on above: Performed By: #### C BC, PT, PTT, CMP #### [address] MCH (RBC) [Entitic mass] 30.2 pg Normal 24.7-34.3 [facility] Comment on above: Performed By: #### C BC, PT, PTT, CMP #### [address] MCV (RBC) [Entitic vol] 92.0 fL Normal 80-100 [facility] Comment on above: Performed By: #### C BC, PT, PTT, CMP #### [address] Mean Corpuscular HGB Conc 32.8 g/dL Normal 32.0-35.0 [facility] Comment on above: Performed By: #### C BC, PT, PTT, CMP #### [facility] [address] [place] [address] [place] Monocytes (Bld) [#/Vol] 0.5 10*3/uL Normal 0.0-0.8 [facility] Comment on above: Performed By: #### C BC, PT, PTT, CMP #### [facility] [address] [place] [address] [place] Monocytes/100 WBC (Bld) 7.6 % Normal . [facility] Comment on above: Performed By: #### C BC, PT, PTT, CMP #### [address] Neutrophils (Bld) [#/Vol] 3.7 10*3/uL Normal 1.8-7.7 [facility] Comment on above: Performed By: #### C BC, PT, PTT, CMP #### [facility] [address] Neutrophils/100 WBC (Bld) 56.9 % Normal . [facility] Comment on above: Performed By: #### C BC, PT, PTT, CMP #### [address] Nucleated RBC/100 WBC (Bld) [Ratio] 0.1 % Normal 0-0.5 [facility] Comment on above: Performed By: #### C BC, PT, PTT, CMP #### [address] Platelet mean volume (Bld) [Entitic vol] 9.0 fL Normal 6.3-10.7 [facility] Comment on above: Performed By: #### C BC, PT, PTT, CMP #### [address] Platelets (Bld) [#/Vol] 277 10*3/uL Normal 150-450 [facility] Comment on above: Performed By: #### C BC, PT, PTT, CMP #### [address] RBC (Bld) [#/Vol] 4.55 10*6/uL Normal 3.60-5.00 [facility] Comment on above: Performed By: #### C BC, PT, PTT, CMP #### [address] WBC (Bld) [#/Vol] 6.4 10*3/uL Normal 4.5-11.0 [facility] Comment on above: Performed By: #### C BC, PT, PTT, CMP #### [facility] [address] Creatinine and Glomerular fi ltration rate.predicted panel (S/P/Bld)Ordered By: Atul Vera on 03-09-2022 Creatinine [Mass/Vol] 1.04 mg/dL 0.44-1.03 [facility] ECG 12 lead ECGon 03-09-2022 ECG 12 lead ECG [facility] [place] [address] [place] [address] Electrocardiograph Report Signed Patient: Saeed Sarabia MR#: [id number] : 1940 Acct:[id number] Age/Sex: 81 / F ADM Date: 03/09/22 Loc: PS Room: Type: [facility] Attending Dr: Atul Vera MD Ordering Provider: [...] Signed By Piedad Lockhart DO 03/12 Normal [facility] Eosinophils Auto (Bld) [#/Vo l]Ordered By: Atul Vera on 03-09-2022 Eosinophils (Bld) [#/Vol] 0.1 10*3/uL 0.0-0.45 [facility] Eosinophils/100 WBC Auto (Bl d)Ordered By: Atul Vera on 03-09-2022 Eosinophils/100 WBC (Bld) 1.9 % [facility] Erythrocyte distribution wid th Auto (RBC) [Ratio]Ordered By: Atul Vera on 03-09-2022 Erythrocyte distribution width (RBC) [Ratio] 13.8 % 11.9-15.3 [facility] Estimated glomerular filtrat ion rate (GFR) non- AmericanOrdered By: Atul Vera on 03-09-2022 GFR/1.73 sq M.predicted among non-blacks MDRD (S/P/Bld) [Vol rate/Area] 51 mL/Min [facility] Hematocrit Auto (Bld) [Volum e fraction]Ordered By: Atul Vera on 03-09-2022 Hematocrit (Bld) [Volume fraction] 41.8 % 34.0-46.4 [facility] Laboratory - Hematology and Cell countsOrdered By: Atul Vera on 03-09-2022 Nucleated RBC/100 WBC (Bld) [Ratio] 0.1 % 0-0.5 [facility] Lymphocytes Auto (Bld) [#/Vo l]Ordered By: Atul Vera on 03-09-2022 Lymphocytes (Bld) [#/Vol] 2.1 10*3/uL 1.00-4.8 [facility] Lymphocytes/100 WBC Auto (Bl d)Ordered By: Atul Vera on 03-09-2022 Lymphocytes/100 WBC (Bld) 32.8 % [facility] MCH Auto (RBC) [Entitic mass ]Ordered By: Atul Vera on 03-09-2022 MCH (RBC) [Entitic mass] 30.2 pg 24.7-34.3 [facility] MCHC Auto (RBC) [Mass/Vol]Or dered By: Atul Vera on 03-09-2022 MCHC (RBC) [Mass/Vol] 32.8 g/dL 32.0-35.0 [facility] MCV Auto (RBC) [Entitic vol] Ordered By: Atul Vera on 03-09-2022 MCV (RBC) [Entitic vol] 92.0 fL 80-100 [facility] Monocytes Auto (Bld) [#/Vol] Ordered By: Atul Vera on 03-09-2022 Monocytes (Bld) [#/Vol] 0.5 10*3/uL 0.0-0.8 [facility] Monocytes/100 WBC Auto (Bld) Ordered By: Atul Vera on 03-09-2022 Monocytes/100 WBC (Bld) 7.6 % [facility] Neutrophils Auto (Bld) [#/Vo l]Ordered By: Atul Vera on 03-09-2022 Neutrophils (Bld) [#/Vol] 3.7 10*3/uL 1.8-7.7 [facility] Neutrophils/100 WBC Auto (Bl d)Ordered By: Atul Vera on 03-09-2022 Neutrophils/100 WBC (Bld) 56.9 % [facility] No Panel InformationOrdered By: Atul Vera on 03-09-2022 Estimated GFR () > 60 mL/Min [facility] Comment on above: GFR estimated refere nce range: According to KDOQI guidelines, <60 ml/min/1.73m2 is sufficient to diagnose a patient with chronic kidney disease. Pharmacy Creatinine Clearance (Chem N/A [facility] Platelet mean volume Auto (B ld) [Entitic vol]Ordered By: Atul Vera on 03-09-2022 Platelet mean volume (Bld) [Entitic vol] 9.0 fL 6.3-10.7 [facility] Platelets Auto (Bld) [#/Vol] Ordered By: Atul Vera on 03-09-2022 Platelets (Bld) [#/Vol] 277 10*3/uL 150-450 [facility] RBC Auto (Bld) [#/Vol]Ordere d By: Atul Vera on 03-09-2022 RBC (Bld) [#/Vol] 4.55 10*6/uL 3.60-5.00 [facility] Serum or plasma calcium nakul urement (mass/volume)Ordered By: Atul Vera on 03-09-2022 Calcium [Mass/Vol] 9.6 mg/dL 8.2-10.2 [facility] Serum or plasma chloride juliana surement (moles/volume)Ordered By: Atul Vera on 03-09-2022 Chloride [Moles/Vol] 99 mmol/L 95-114 [facility] Serum or plasma glucose nakul urement (mass/volume)Ordered By: Atul Vera on 03-09-2022 Glucose [Mass/Vol] 134 mg/dL 70-100 [facility] Comment on above: ADA recommended refe rence range Random Glucose Reference Range is dependent on time and content of last meal. Glucose of more than 200 mg/dL in a nonstressed, ambulatory subject supports the diagnosis of Diabetes Mellitus. Serum or plasma potassium me asurement (moles/volume)Ordered By: Atul Vera on 03-09-2022 Potassium [Moles/Vol] 4.8 mmol/L 3.5-5.1 [facility] Serum or plasma sodium measu rement (moles/volume)Ordered By: Atul Vera on 03-09-2022 Sodium [Moles/Vol] 139 mmol/L 136-146 [facility] Serum or plasma total carbon dioxide measurement (moles/volume)Ordered By: Atul Vera on 03-09-2022 CO2 [Moles/Vol] 26.1 mmol/L 22.0-30.0 [facility] Serum or plasma urea nitroge n measurement (mass/volume)Ordered By: Atul Vera on 03-09-2022 Urea nitrogen [Mass/Vol] 21 mg/dL 9-23 [facility] MRI [place]SB[place]ON WO CONon 02-19-20 22 MRI [facility] CON EXAMINATION: MRI [facility] CON HISTORY: Lumbar spondylosis with myelopathy COMPARISON: [...] by: SHEILA INIGUEZ Date: 2022-02-18 11:32 Normal [facility] US ARTERY LEG BILon 02-12-20 US [...] by: SHEILA INIGUEZ Date: 2022-02-11 16:21 Normal [facility] XR LSPINE 2_3 VIEWSon 2021 XR [...] by: SHEILA INIGUEZ Date: 2022-02-11 17:09 Normal [facility] VITAMIN B12on 02-10-2022 Cobalamin (Vitamin B12) [Mass/Vol] 359 pg/mL Normal 232-1245 [facility] Comment on above: Performed By: #### V B12LC #### [facility] [address] [address] [address] Adilene Koo CBC AUTO DIFFon 02-09-2022 BASO # 0.0 103/ul Normal 0.0-0.1 [facility] Comment on above: Performed By: #### C BC ####[facility] [address] [address]Dr. Adilene Koo Basophils/100 WBC (Bld) 0.2 % Normal 0.2-2.[address] [facility] Comment on above: Performed By: #### C BC ####[facility] [address] [address]Dr. Adilene Koo EO # 0.1 103/ul Normal 0.0-0.7 [facility] Comment on above: Performed By: #### C BC ####[facility] [address] [id number]. Adilene Koo Eosinophils/100 WBC (Bld) 1.5 % Normal 0.9-7.0 [facility] Comment on above: Performed By: #### C BC ####[facility] [address] [id number]. Adilene Koo Erythrocyte distribution width (RBC) [Ratio] 13.2 % Normal 11.0-15.0 [facility] Comment on above: Performed By: #### C BC ####[facility] [address] [address]Dr. Adilene Koo Hematocrit (Bld) [Volume fraction] 46.3 % Normal 36.0-48.0 [facility] Comment on above: Performed By: #### C BC ####[facility] [address] [address]DrKen Adilene Koo Hemoglobin (Bld) [Mass/Vol] 14.1 g/dL Normal 12.0-16.0 [facility] Comment on above: Performed By: #### C BC ####[facility] [address] [address]DrKen Adilene Koo IG # 0.02 10e3/ul Normal 0.00-0.03 [facility] Comment on above: Performed By: #### C BC ####[facility] [address] [place], [place] [address]DrKen Adilene Hayes IG % 0.2 % Normal 0.0-0.5 [facility] Comment on above: Performed By: #### C BC ####[facility] [address] [place], [place] [address]DrKen Adilene Hayes LYMPH # 2.4 103/ul Normal 1.2-3.8 [facility] Comment on above: Performed By: #### C BC ####[facility] [address] [place], [place] [address]DrKen Adilene Hayes Lymphocytes/100 WBC (Bld) 29.9 % Normal 20.5-60.0 [facility] Comment on above: Performed By: #### C BC ####[facility] [address] [place], [place] [address]DrKen Josephinerossy Koo MANUAL DIFF REQ NO Normal [facility] Comment on above: Performed By: #### C BC ####[facility] [address] [place], [place] [address]DrKen Adilene Hayes MCH (RBC) [Entitic mass] 29.2 pg Normal 26.7-34.0 [facility] Comment on above: Performed By: #### C BC ####[facility] [address] [place], [place] [address]DrKen Adilene Hayes MCHC (RBC) [Mass/Vol] 30.5 g/dL Normal 29.9-35.2 [facility] Comment on above: Performed By: #### C BC ####[facility] [address] [place], [place] [address]DrKen Koo MCV (RBC) [Entitic vol] 95.9 fL Normal 81.0-99.[address] [facility] Comment on above: Performed By: #### C BC ####[facility] [address] [place], [place] [address]DrKen Koo MONO # 0.6 103/ul Normal 0.3-0.8 [facility] Comment on above: Performed By: #### C BC ####[facility] [address] [place], [place] [address]DrKen Koo Monocytes/100 WBC (Bld) 8.0 % Normal 1.7-12.[address] [facility] Comment on above: Performed By: #### C BC ####[facility] [address] [place], [place] [address]DrKen Koo NEUT # 4.8 103/ul Normal 1.4-6.5 [facility] Comment on above: Performed By: #### C BC ####[facility] [address] [place], [place] [address]DrKen Koo Neutrophils/100 WBC (Bld) 60.2 % Normal 43.0-75.0 [facility] Comment on above: Performed By: #### C BC ####[facility] [address] [place], [place] [address]DrKen Koo Platelet mean volume (Bld) [Entitic vol] 10.9 fL Normal 9.5-13.5 [facility] Comment on above: Performed By: #### C BC ####[facility] [address] [place], [place] [address]DrKen Koo PLT 276 103/ul Normal 150-450 [facility] Comment on above: Performed By: #### C BC ####[facility] [address] [place], [place] [address]DrKen Koo RBC 4.83 106/ul Normal 4.20-5.40 [facility] Comment on above: Performed By: #### C BC ####[facility] [address] [address]Dr. Adilene Koo WBC 8.0 103/ul Normal 4.0-11.0 [facility] Comment on above: Performed By: #### C BC ####[facility] [address] [address]Dr. Adilene Koo FREE T3on 02-09-2022 FREE T3 2.41 pg/mlL Normal 2.18-3.98 [facility] Comment on above: Performed By: #### B MP, FT3, TSH #### [facility] [address] [address] [address] Adilene Koo FREE T4on 02-09-2022 Free T4 [Mass/Vol] 1.39 ng/dL Normal 0.76-1.46 [facility] Comment on above: Performed By: #### F T4 ####[facility] [address] [address]Dr. Adilene Koo GLYCOHEMOGLOBIN A1Con 2021 ADA RECOMMENDATION SEE BELOW Normal [facility] Comment on above: Result Comment: ADA RECOMMENDED LIMIT 4.0 - 6.0 ADA THERAPEUTIC TARGET < 7.0 ACTION SUGGESTED > 7.0 Performed By: #### A 1C ####[facility] [address] [address]Dr. Adilene Koo Glucose [Mass/Vol] 137 mg/dL Normal [facility] Comment on above: Performed By: #### A 1C ####[facility] [address] [address]Dr. Adilene Koo HbA1c (Bld) [Mass fraction] 6.4 % Critically high 4.5-6.2 [facility] Comment on above: Performed By: #### A 1C ####[facility] [address] [address]Dr. Adilene Koo PROF CHEM 8 (BAS METB)on Anion gap [Moles/Vol] 9.1 mmol/L Normal [facility] Comment on above: Performed By: #### B MP, FT3, TSH #### [facility] [address] [address] [address] Adilene Koo Calcium [Mass/Vol] 9.0 mg/dL Normal 8.5-10.1 [facility] Comment on above: Performed By: #### B MP, FT3, TSH #### [facility] [address] [address] [address] Adilene Koo Chloride [Moles/Vol] 105 mmol/L Normal 98-107 [facility] Comment on above: Performed By: #### B MP, FT3, TSH #### [facility] [address] [place] [address] Dr. Adilene Koo CO2 [Moles/Vol] 30.5 mmol/L Normal 21.0-32.0 [facility] Comment on above: Performed By: #### B MP, FT3, TSH #### [facility] [address] [place] [address] Dr. Adilene Koo Creatinine [Mass/Vol] 0.93 mg/dL Normal 0.55-1.02 [facility] Comment on above: Performed By: #### B MP, FT3, TSH #### [facility] [address] [place] [address] Dr. Adilene Koo EGFR-AF INDIAN >60 Normal >=60 [facility] Comment on above: Performed By: #### B MP, FT3, TSH #### [facility] [address] [place] [address] Dr. Adilene Koo EGFR-NON AF INDIAN 58 mL/min/1.73m2 Critically low >=60 [facility] Comment on above: Performed By: #### B MP, FT3, TSH #### [facility] [address] [place] [address] Dr. Adilene Koo Glucose [Mass/Vol] 105 mg/dL Normal 74-106 [facility] Comment on above: Performed By: #### B MP, FT3, TSH #### [facility] [address] [place] [address] Dr. Adilene Koo Potassium [Moles/Vol] 4.6 mmol/L Normal 3.5-5.1 [facility] Comment on above: Performed By: #### B MP, FT3, TSH #### [facility] [address] [place] [address] Dr. Adilene Koo Sodium [Moles/Vol] 140 mmol/L Normal 136-145 [facility] Comment on above: Performed By: #### B MP, FT3, TSH #### [facility] [address] [place] [address] Dr. Adilene Koo Urea nitrogen [Mass/Vol] 20.0 mg/dL Critically high 7.0-18 .0 [facility] Comment on above: Performed By: #### B MP, FT3, TSH #### [facility] [address] [place] [address] Dr. Adilene Koo Urea nitrogen/Creatinine [Mass ratio] 21.5 mg/mg Normal [facility] Comment on above: Performed By: #### B MP, FT3, TSH #### [facility] [address] [place] [address] Dr. Adilene Koo TSHon 02-09-2022 TSH 0.134 uIU/mL Critically low 0.470-4.680 [facility] Comment on above: Performed By: #### B MP, FT3, TSH #### [facility] [address] [place] [address] Dr. Adilene Koo TSH RANGE SEE BELOW Normal [facility] Comment on above: Result Comment: <0.3 4 UIU/ml HYPERTHYROID 0.34-5.60 UIU/ml EUTHYROID >5.60 UIU/ml HYPOTHYROID Performed By: #### B MP, FT3, TSH #### [facility] [address] [place] [address] Dr. Adilene Koo Vital Signs Date Time Vital Sign Value Performing Clinician Facility 05-22-2025 10:32-0400 Body mass index (BMI) [Ratio] 27.02 kg/m2 Galindo Miller TRAFFIC OR SYSTEM DISPATCHER Work Phone: [facility] 05-22-2025 10:32-0400 Body temperature 97.81 [degF] Galindo Aichholz TRAFFIC OR SYSTEM DISPATCHER Work Phone: [facility] 05-22-2025 10:32-0400 Body weight 71.4 kg Galindo Aichholz TRAFFIC OR SYSTEM DISPATCHER Work Phone: [facility] 05-22-2025 10:32-0400 Diastolic blood pressure 82 mm[Hg] Galindo Aichholz TRAFFIC OR SYSTEM DISPATCHER Work Phone: [facility] 05-22-2025 10:32-0400 Heart rate 65 /min Galindo Aichholz TRAFFIC OR SYSTEM DISPATCHER Work Phone: [facility] 05-22-2025 10:32-0400 Respiratory rate 18 /min Galindo Aichholz TRAFFIC OR SYSTEM DISPATCHER Work Phone: [facility] 05-22-2025 10:32-0400 SaO2% (BldA) [Mass fraction] 96 % Galindo Aichholz TRAFFIC OR SYSTEM DISPATCHER Work Phone: [facility] 05-22-2025 10:32-0400 Systolic blood pressure 118 mm[Hg] Galindo Aichholz TRAFFIC OR SYSTEM DISPATCHER Work Phone: [facility] 02-18-2025 10:34-0400 Body mass index (BMI) [Ratio] 27.57 kg/m2 Galindo Aichholz TRAFFIC OR SYSTEM DISPATCHER Work Phone: [facility] 02-18-2025 10:34-0400 Body temperature 97.81 [degF] Galindo Aichholz TRAFFIC OR SYSTEM DISPATCHER Work Phone: [facility] 02-18-2025 10:34-0400 Body weight 72.85 kg Galindo Aichholz TRAFFIC OR SYSTEM DISPATCHER Work Phone: [facility] 02-18-2025 10:34-0400 Diastolic blood pressure 70 mm[Hg] Galindo Aichholz TRAFFIC OR SYSTEM DISPATCHER Work Phone: [facility] 02-18-2025 10:34-0400 Heart rate 57 /min Galindo Aichholz TRAFFIC OR SYSTEM DISPATCHER Work Phone: [facility] 02-18-2025 10:34-0400 Respiratory rate 20 /min Galindo Miller TRAFFIC OR SYSTEM DISPATCHER Work Phone: [facility] 02-18-2025 10:34-0400 SaO2% (BldA) [Mass fraction] 95 % Galindo Miller TRAFFIC OR SYSTEM DISPATCHER Work Phone: [facility] 02-18-2025 10:34-0400 Systolic blood pressure 128 mm[Hg] Galindo Miller TRAFFIC OR SYSTEM DISPATCHER Work Phone: [facility] 01-17-2025 10:18-0400 Body mass index (BMI) [Ratio] 26.01 kg/m2 Dinora Pack DATABASE REPORT WRITER.NURSING HOME AIDE Work Phone: [facility] 01-17-2025 10:18-0400 Body weight 73.1 kg Dinora Pack DATABASE REPORT WRITER.NURSING HOME AIDE Work Phone: [facility] 01-17-2025 10:18-0400 Diastolic blood pressure 74 mm[Hg] Dinora Pack DATABASE REPORT WRITER.NURSING HOME AIDE Work Phone: [facility] 01-17-2025 10:18-0400 Heart rate 62 /min Dinora Pack DATABASE REPORT WRITER.NURSING HOME AIDE Work Phone: [facility] 01-17-2025 10:18-0400 SaO2% (BldA) [Mass fraction] 99 % Dinora Pack DATABASE REPORT WRITER.NURSING HOME AIDE Work Phone: [facility] 01-17-2025 10:18-0400 Systolic blood pressure 167 mm[Hg] Dinora Pack DATABASE REPORT WRITER.NURSING HOME AIDE Work Phone: [facility] 12-17-2024 08:54-0400 Body height 167.6 cm Luciana Hirzel DO Work Phone: [facility] 12-17-2024 08:54-0400 Body mass index (BMI) [Ratio] 25.8 kg/m2 Luciana Hirzel DO Work Phone: [facility] 12-17-2024 08:54-0400 Body weight 72.5 kg Luciana Hirzel DO Work Phone: [facility] 12-17-2024 08:54-0400 Diastolic blood pressure 70 mm[Hg] Lucianadeandra Green DO Work Phone: [facility] 12-17-2024 08:54-0400 Heart rate 70 /min Luciana Sherley DO Work Phone: [facility] 12-17-2024 08:54-0400 SaO2% (BldA) [Mass fraction] 97 % Lucianafranky Green DO Work Phone: [facility] 12-17-2024 08:54-0400 Systolic blood pressure 120 mm[Hg] Lucianadeandra Zimmermanzel DO Work Phone: [facility] 12-03-2024 09:00-0500 Body mass index (BMI) [Ratio] 26.67 kg/m2 Galindo Aichholz TRAFFIC OR SYSTEM DISPATCHER Work Phone: [facility] 12-03-2024 09:00-0500 Body temperature 98.2 [degF] Galindo Aichholz TRAFFIC OR SYSTEM DISPATCHER Work Phone: [facility] 12-03-2024 09:00-0500 Body weight 70.49 kg Galindo Aichholz TRAFFIC OR SYSTEM DISPATCHER Work Phone: [facility] 12-03-2024 09:00-0500 Diastolic blood pressure 76 mm[Hg] Galindo Aichholz TRAFFIC OR SYSTEM DISPATCHER Work Phone: [facility] 12-03-2024 09:00-0500 Heart rate 64 /min Galindo Aichholz TRAFFIC OR SYSTEM DISPATCHER Work Phone: [facility] 12-03-2024 09:00-0500 Respiratory rate 18 /min Galindo Aichholz TRAFFIC OR SYSTEM DISPATCHER Work Phone: [facility] 12-03-2024 09:00-0500 SaO2% (BldA) [Mass fraction] 99 % Galindo Aichholz TRAFFIC OR SYSTEM DISPATCHER Work Phone: [facility] 12-03-2024 09:00-0500 Systolic blood pressure 130 mm[Hg] Galindo Aichholz TRAFFIC OR SYSTEM DISPATCHER Work Phone: [facility] 11-15-2024 13:50-0500 Body height 167.6 cm Pacc 2 Work Phone: [facility] 11-15-2024 13:50-0500 Body mass index (BMI) [Ratio] 24.73 kg/m2 Pacc 2 Work Phone: [facility] 11-15-2024 13:50-0500 Body temperature 99.19 [degF] Pacc 2 Work Phone: [facility] 11-15-2024 13:50-0500 Body weight 69.5 kg Pacc 2 Work Phone: [facility] 11-15-2024 13:50-0500 Diastolic blood pressure 56 mm[Hg] Pacc 2 Work Phone: [facility] 11-15-2024 13:50-0500 Heart rate 64 /min Pacc 2 Work Phone: [facility] 11-15-2024 13:50-0500 Respiratory rate 16 /min Pacc 2 Work Phone: [facility] 11-15-2024 13:50-0500 SaO2% (BldA) [Mass fraction] 97 % Pacc 2 Work Phone: [facility] 11-15-2024 13:50-0500 Systolic blood pressure 147 mm[Hg] Pacc 2 Work Phone: [facility] 11-04-2024 08:44-0500 Body height 167.6 cm Luciana Hirzel DO Work Phone: [facility] 11-04-2024 08:44-0500 Body mass index (BMI) [Ratio] 25.09 kg/m2 Luciana Hirzel DO Work Phone: [facility] 11-04-2024 08:44-0500 Body weight 70.5 kg Luciana Hirzel DO Work Phone: [facility] 11-04-2024 08:44-0500 Diastolic blood pressure 82 mm[Hg] Lucianadeandra Green DO Work Phone: [facility] 11-04-2024 08:44-0500 Heart rate 80 /min Luciana Erasmozel DO Work Phone: [facility] 11-04-2024 08:44-0500 SaO2% (BldA) [Mass fraction] 98 % Lucianadeandra Green DO Work Phone: [facility] 11-04-2024 08:44-0500 Systolic blood pressure 160 mm[Hg] Luciana Erasmozel DO Work Phone: [facility] 10-30-2024 11:13-0500 Heart rate 62 /min Galindo Paul TRAFFIC OR SYSTEM DISPATCHER Work Phone: [facility] 10-30-2024 10:09-0500 Body mass index (BMI) [Ratio] 26.47 kg/m2 Galindo Paul TRAFFIC OR SYSTEM DISPATCHER Work Phone: [facility] 10-30-2024 10:09-0500 Body temperature 98.49 [degF] Galindo Romeliaz TRAFFIC OR SYSTEM DISPATCHER Work Phone: [facility] 10-30-2024 10:09-0500 Body weight 69.94 kg Galindo Romeliaz TRAFFIC OR SYSTEM DISPATCHER Work Phone: [facility] 10-30-2024 10:09-0500 Diastolic blood pressure 69 mm[Hg] Galindo Paul TRAFFIC OR SYSTEM DISPATCHER Work Phone: [facility] 10-30-2024 10:09-0500 Respiratory rate 18 /min Galindo Romeliaz TRAFFIC OR SYSTEM DISPATCHER Work Phone: [facility] 10-30-2024 10:09-0500 SaO2% (BldA) [Mass fraction] 95 % Galindo Romeliaz TRAFFIC OR SYSTEM DISPATCHER Work Phone: [facility] 10-30-2024 10:09-0500 Systolic blood pressure 140 mm[Hg] Galindo Romeliaz TRAFFIC OR SYSTEM DISPATCHER Work Phone: [facility] 10-29-2024 09:15-0500 Diastolic blood pressure 73 mm[Hg] Us Stro Work Phone: [facility] Comment on above: retaken 10-29-2024 09:15-0500 Heart rate 66 /min Us Stro Work Phone: [facility] 10-29-2024 09:15-0500 Systolic blood pressure 155 mm[Hg] Us Stro Work Phone: [facility] Comment on above: retaken 10-29-2024 09:14-0500 Body height 167.6 cm Us Stro Work Phone: [facility] 10-29-2024 09:14-0500 Body mass index (BMI) [Ratio] 24.21 kg/m2 Us Stro Work Phone: [facility] 10-29-2024 09:14-0500 Body weight 68.04 kg Us Stro Work Phone: [facility] 10-24-2024 13:18-0500 Body height 165.1 cm Luciana Hirzel DO Work Phone: [facility] 10-24-2024 13:18-0500 Body mass index (BMI) [Ratio] 25.79 kg/m2 Luciana Hirzel DO Work Phone: [facility] 10-24-2024 13:18-0500 Body weight 70.3 kg Luciana Hirzel DO Work Phone: [facility] 10-24-2024 13:18-0500 Diastolic blood pressure 70 mm[Hg] Luciana Hirzel DO Work Phone: [facility] 10-24-2024 13:18-0500 Heart rate 65 /min Luciana Hirzel DO Work Phone: [facility] 10-24-2024 13:18-0500 SaO2% (BldA) [Mass fraction] 98 % Luciana Hirzel DO Work Phone: [facility] 10-24-2024 13:18-0500 Systolic blood pressure 120 mm[Hg] Luciana Hirzel DO Work Phone: [facility] 10-16-2024 12:22-0500 Body temperature 99.3 [degF] Briana Torsney PA-C Work Phone: [facility] 10-16-2024 12:22-0500 Diastolic blood pressure 61 mm[Hg] Briana Torsney PA-C Work Phone: [facility] 10-16-2024 12:22-0500 Heart rate 76 /min Briana Torsney PA-C Work Phone: [facility] 10-16-2024 12:22-0500 Respiratory rate 18 /min Briana Torsney PA-C Work Phone: [facility] 10-16-2024 12:22-0500 SaO2% (BldA) [Mass fraction] 98 % Briana Torsney PA-C Work Phone: [facility] 10-16-2024 12:22-0500 Systolic blood pressure 156 mm[Hg] Briana Torsney PA-C Work Phone: [facility] 10-10-2024 15:01-0500 Body mass index (BMI) [Ratio] 26.78 kg/m2 Galindo Miller TRAFFIC OR SYSTEM DISPATCHER Work Phone: [facility] 10-10-2024 15:01-0500 Body temperature 99.19 [degF] Galindo Miller TRAFFIC OR SYSTEM DISPATCHER Work Phone: [facility] 10-10-2024 15:01-0500 Body weight 70.76 kg Galindo Miller TRAFFIC OR SYSTEM DISPATCHER Work Phone: [facility] 10-10-2024 15:01-0500 Diastolic blood pressure 78 mm[Hg] Galindo Miller TRAFFIC OR SYSTEM DISPATCHER Work Phone: [facility] 10-10-2024 15:01-0500 Heart rate 67 /min Galindo Miller TRAFFIC OR SYSTEM DISPATCHER Work Phone: [facility] 10-10-2024 15:01-0500 SaO2% (BldA) [Mass fraction] 97 % Galindo Aichholz TRAFFIC OR SYSTEM DISPATCHER Work Phone: [facility] 10-10-2024 15:01-0500 Systolic blood pressure 138 mm[Hg] Galindo Aichholz TRAFFIC OR SYSTEM DISPATCHER Work Phone: [facility] 09-30-2024 10:40-0500 Body height 162.6 cm Galindo Aichholz TRAFFIC OR SYSTEM DISPATCHER Work Phone: [facility] 09-30-2024 10:40-0500 Body mass index (BMI) [Ratio] 26.91 kg/m2 Galindo Aichholz TRAFFIC OR SYSTEM DISPATCHER Work Phone: [facility] 09-30-2024 10:40-0500 Body temperature 97.81 [degF] Galindo Aichholz TRAFFIC OR SYSTEM DISPATCHER Work Phone: [facility] 09-30-2024 10:40-0500 Body weight 71.12 kg Galindo Aichholz TRAFFIC OR SYSTEM DISPATCHER Work Phone: [facility] 09-30-2024 10:40-0500 Diastolic blood pressure 80 mm[Hg] Galindo Aichholz TRAFFIC OR SYSTEM DISPATCHER Work Phone: [facility] 09-30-2024 10:40-0500 Heart rate 90 /min Galindo Aichholz TRAFFIC OR SYSTEM DISPATCHER Work Phone: [facility] 09-30-2024 10:40-0500 Respiratory rate 18 /min Galindo Aichholz TRAFFIC OR SYSTEM DISPATCHER Work Phone: [facility] 09-30-2024 10:40-0500 SaO2% (BldA) [Mass fraction] 99 % Galindo Aichholz TRAFFIC OR SYSTEM DISPATCHER Work Phone: [facility] 09-30-2024 10:40-0500 Systolic blood pressure 132 mm[Hg] Galindo Aichholz TRAFFIC OR SYSTEM DISPATCHER Work Phone: [facility] 08-20-2024 09:19-0500 Body temperature 97.81 [degF] Galindo Aichholz TRAFFIC OR SYSTEM DISPATCHER Work Phone: [facility] 08-20-2024 09:19-0500 Body weight 74.57 kg Galindo Miller TRAFFIC OR SYSTEM DISPATCHER Work Phone: [facility] 08-20-2024 09:19-0500 Diastolic blood pressure 76 mm[Hg] Galindo Leónz TRAFFIC OR SYSTEM DISPATCHER Work Phone: [facility] 08-20-2024 09:19-0500 Heart rate 59 /min Galindofranky Meansholz TRAFFIC OR SYSTEM DISPATCHER Work Phone: [facility] 08-20-2024 09:19-0500 Respiratory rate 18 /min Galindo Leónz TRAFFIC OR SYSTEM DISPATCHER Work Phone: [facility] 08-20-2024 09:19-0500 SaO2% (BldA) [Mass fraction] 99 % Galindo Miller TRAFFIC OR SYSTEM DISPATCHER Work Phone: [facility] 08-20-2024 09:19-0500 Systolic blood pressure 148 mm[Hg] Galindo Leónz TRAFFIC OR SYSTEM DISPATCHER Work Phone: [facility] 04-15-2022 06:02-0400 Body temperature 98.2 [degF] MD Atul Vera Work Phone: [facility] 04-15-2022 06:02-0400 Diastolic blood pressure 71 mm[Hg] MD Atul Vera Work Phone: [facility] 04-15-2022 06:02-0400 Heart rate 77 /min MD Atul Vera Work Phone: [facility] 04-15-2022 06:02-0400 Respiratory rate 16 /min MD Atul Vera Work Phone: [facility] 04-15-2022 06:02-0400 SaO2% (BldA) [Mass fraction] 96 % MD Atul Vera Work Phone: [facility] 04-15-2022 06:02-0400 Systolic blood pressure 131 mm[Hg] MD Atul Vera Work Phone: [facility] 04-15-2022 05:59-0400 Body weight 78.3 kg MD Atul Vera Work Phone: [facility] 04-14-2022 07:46-0400 Body height 167.64 cm MD Atul Vera Work Phone: [facility] 04-07-2022 15:42-0400 Body mass index (BMI) [Ratio] 27.7 kg/m2 MD Atul Vera Work Phone: [facility] 03-28-2022 12:00-0400 Body temperature 98 [degF] MD Atul Vera Work Phone: [facility] 03-28-2022 12:00-0400 Diastolic blood pressure 74 mm[Hg] MD Atul Vera Work Phone: [facility] 03-28-2022 12:00-0400 Heart rate 70 /min MD Atul Vera Work Phone: [facility] 03-28-2022 12:00-0400 SaO2% (BldA) [Mass fraction] 96 % MD Atul Vera Work Phone: [facility] 03-28-2022 12:00-0400 Systolic blood pressure 125 mm[Hg] MD Atul Vera Work Phone: [facility] 03-28-2022 11:50-0400 Body height 157.48 cm MD Atul Vera Work Phone: [facility] 03-28-2022 05:56-0400 Body weight 79.1 kg MD Atul Vera Work Phone: [facility] 03-28-2022 03:30-0400 Respiratory rate 19 /min MD Atul Vera Work Phone: [facility] 03-24-2022 04:00-0400 Body height 157.48 cm MD Atul Vera Work Phone: [facility] 03-24-2022 04:00-0400 Body mass index (BMI) [Ratio] 31.6 kg/m2 MD Atul Vera Work Phone: [facility] 03-24-2022 04:00-0400 Body temperature 97.8 [degF] MD Atul Vera Work Phone: [facility] 03-24-2022 04:00-0400 Body weight 78.4 kg MD Atul Vera Work Phone: [facility] 03-24-2022 04:00-0400 Diastolic blood pressure 77 mm[Hg] MD Atul Vera Work Phone: [facility] 03-24-2022 04:00-0400 Heart rate 113 /min MD Atul Vera Work Phone: [facility] 03-24-2022 04:00-0400 Respiratory rate 21 /min MD Atul Vera Work Phone: [facility] 03-24-2022 04:00-0400 SaO2% (BldA) [Mass fraction] 93 % MD Atul Vera Work Phone: [facility] 03-24-2022 04:00-0400 Systolic blood pressure 162 mm[Hg] MD Atul Vera Work Phone: [facility] 03-23-2022 15:30-0400 Body height 167.64 cm Atul Vera Other [employer] [facility] Other 03-23-2022 15:30-0400 Body mass index (BMI) [Ratio] 28.34 kg/m2 Atul Vera Other [employer] Other 03-23-2022 15:30-0400 Body weight 79.65 kg Atul Vera Other [employer] Other 03-09-2022 13:28-0400 Body height 158.75 cm MD Atul Vera Work Phone: [facility] 03-09-2022 13:28-0400 Body mass index (BMI) [Ratio] 32.1 kg/m2 MD Atul Vera Work Phone: [facility] 03-09-2022 13:28-0400 Body temperature 98.7 [degF] MD Atul Vera Work Phone: [facility] 03-09-2022 13:28-0400 Body weight 81 kg MD Atul Vera Work Phone: [facility] 03-09-2022 13:28-0400 Diastolic blood pressure 68 mm[Hg] MD Atul Vera Work Phone: [facility] 03-09-2022 13:28-0400 Heart rate 72 /min MD Atul Vera Work Phone: [facility] 03-09-2022 13:28-0400 Respiratory rate 16 /min MD Atul Vera Work Phone: [facility] 03-09-2022 13:28-0400 SaO2% (BldA) [Mass fraction] 96 % MD Atul Vera Work Phone: [facility] 03-09-2022 13:28-0400 Systolic blood pressure 144 mm[Hg] MD Atul Vera Work Phone: [facility] Encounters Encounter Date Encounter Type Care Provider Facility Start: 05-28-2025 End: 05-28-2025 Clinisync Result Encounter Galindo Miller TRAFFIC OR SYSTEM DISPATCHER Work Phone: [facility] External Department Unsolicited Start: 05-28-2025 End: 05-28-2025 Clinisync Result Encounter Galindo Miller TRAFFIC OR SYSTEM DISPATCHER Work Phone: [facility] External Department Unsolicited Start: 05-22-2025 End: 05-22-2025 Bamboo flowsheet Galindo Miller TRAFFIC OR SYSTEM DISPATCHER Work Phone: [facility] Start: 05-22-2025 End: 05-22-2025 Bamboo flowsheet Galindo Miller TRAFFIC OR SYSTEM DISPATCHER Work Phone: [facility] Start: 05-22-2025 End: 05-22-2025 Office outpatient visit 25 minutes Galindo Miller TRAFFIC OR SYSTEM DISPATCHER Work Phone: [facility] Comment on above: Type 2 diabetes fernandez [...] perforation Start: 05-22-2025 End: 05-22-2025 ambulatory GALINDO MILLER Not Available Start: 02-18-2025 End: 02-18-2025 Bamboo flowsheet Galindo Miller TRAFFIC OR SYSTEM DISPATCHER Work Phone: [facility] Start: 02-18-2025 End: 02-18-2025 Bamboo flowsheet Galindo Miller TRAFFIC OR SYSTEM DISPATCHER Work Phone: [facility] Start: 02-18-2025 End: 02-18-2025 Patient encounter procedure Galindo Miller TRAFFIC OR SYSTEM DISPATCHER Work Phone: [facility] Comment on above: Encounter for subseq uent [...] perforation Start: 02-18-2025 End: 02-18-2025 ambulatory GALINDO MILLER Not Available Start: 01-31-2025 End: 01-31-2025 Clinisync Result Encounter Galindo Miller TRAFFIC OR SYSTEM DISPATCHER Work Phone: [facility] External Department Unsolicited Start: 01-31-2025 End: 01-31-2025 Clinisync Result Encounter Galindo Miller TRAFFIC OR SYSTEM DISPATCHER Work Phone: [facility] External Department Unsolicited Start: 01-30-2025 End: 01-30-2025 Orders Only Galindo Miller TRAFFIC OR SYSTEM DISPATCHER Work Phone: [facility] Comment on above: Benign essential HTN (CMS/HCC) (Primary Dx); Type 2 diabetes mellitus without complication, without long-term current use of insulin; Mixed hyperlipidemia (CMS/HCC); Vitamin B12 deficiency Start: 01-17-2025 End: 01-17-2025 ambulatory ROLANDA CHAPARRO Facility:[facility] Start: 01-17-2025 End: 01-17-2025 Patient encounter procedure Dinora Carroll DATABASE REPORT WRITER.NURSING HOME AIDE Work Phone: Gastroenterology Comment on above: Calculus of gallblad josué without cholecystitis without obstruction (Primary Dx); Unintentional weight loss Start: 12-17-2024 End: 12-17-2024 ambulatory LUCIANA GREEN Facility:[facility] Start: 12-17-2024 End: 12-17-2024 Patient encounter [...] Start: 12-06-2024 End: 12-06-2024 ambulatory GALINDO MILLER Facility:[facility] Start: 12-03-2024 End: 12-03-2024 Office outpatient visit 25 minutes Galindo Miller TRAFFIC OR SYSTEM DISPATCHER Work Phone: [facility] Comment on [...] endometrium Start: 12-03-2024 End: 12-03-2024 ambulatory GALINDO MILLER Not Available Start: 11-15-2024 Encounter for other preprocedural examination BRENDON DORSEY [facility] Start: 11-15-2024 End: 11-15-2024 Subsequent hospital visit by physician Jaskaran Sherman Work Phone: Radiology Comment on above: Pre-op evaluation [Z 01.818] Start: 11-15-2024 End: 11-19-2024 Clinisync Result Encounter Generic External Data Provider [facility] External Department Unsolicited Start: 11-15-2024 End: 11-19-2024 Clinisync Result Encounter Generic External Data Provider [facility] External Department Unsolicited Start: 11-15-2024 End: 11-15-2024 Patient encounter procedure Maxine Kaba RT(R) Radiology Start: 11-15-2024 End: 11-17-2024 Refill Galindo Miller TRAFFIC OR SYSTEM DISPATCHER Work Phone: [facility] Comment on above: Acute gastric ulcer without hemorrhage or perforation Start: 11-15-2024 End: 11-15-2024 Admission to [place] [id number] Work Phone: Pre Anesthesia Start: 11-15-2024 End: 11-15-2024 ambulatory Maxine Kaba RT(R) Radiology Comment on above: Radiology XR Start: 11-15-2024 End: 11-15-2024 Anesthesia consultation Pacc 2 Work Phone: Pre Anesthesia Comment on above: Pre-op evaluation (P rimary Dx); Benign essential HTN; Type 2 diabetes mellitus with other specified complication, without long-term current use of insulin (HCC); Paroxysmal atrial fibrillation (HCC); 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; Other hyperlipidemia Start: 11-15-2024 End: 11-15-2024 Preprocedural examination done Pac 2 Work Phone: [facility] Work Phone: Start: 11-13-2024 End: 11-13-2024 ambulatory [facility] Start: 11-12-2024 End: 11-12-2024 ambulatory [facility] Provider Obstetrics/Gynecolog y Comment on above: Polyp removal proced ure Start: 11-07-2024 End: 11-14-2024 Telephone encounter Luciana Green DO Work Phone: Obstetrics/Gynecology Comment on above: Schedule Surgery Start: 11-07-2024 End: 11-07-2024 ambulatory [facility] Start: 11-07-2024 End: 11-07-2024 Encounter for preprocedural cardiovascular examination [facility] Start: 11-05-2024 End: 11-05-2024 Telephone encounter Luciana Green DO Work Phone: Obstetrics/Gynecology Start: 11-04-2024 End: 11-04-2024 ambulatory LUCIANA GREEN Facility:[facility] Start: 11-04-2024 End: 11-04-2024 Patient encounter procedure Luciana Green DO Work Phone: Obstetrics/Gynecology Comment on above: Endometrial polyp (P rimary Dx) Start: 10-30-2024 End: 10-30-2024 Bamboo flowsheet Galindo Miller TRAFFIC OR SYSTEM DISPATCHER Work Phone: [facility] Start: 10-30-2024 End: 10-30-2024 Bamboo flowsheet Galindo Paul TRAFFIC OR SYSTEM DISPATCHER Work Phone: [facility] Start: 10-30-2024 End: 10-30-2024 Telephone encounter Gabriela Centeno MD Work Phone: Obstetrics/Gynecology Start: 10-30-2024 End: 10-30-2024 Office outpatient visit 25 minutes Galindo Miller TRAFFIC OR SYSTEM DISPATCHER Work Phone: [facility] Comment on [...] (CMS/HCC) Start: 10-30-2024 End: 10-30-2024 ambulatory GALINDO PAUL Not Available Start: 10-29-2024 End: 10-30-2024 Clinisync [...] Start: 10-29-2024 End: 10-29-2024 ambulatory BRENDON DORSEY Facility:[facility] Start: 10-29-2024 End: 10-29-2024 Patient encounter procedure Spinning And Winding Supervisor [facility] Work Phone: OB/Gynecology Comment on above: Thickened endometriu m (Primary Dx); Endometrial polyp; Endocervical polyp; Abnormal ultrasound of endometrium Start: 10-24-2024 End: 10-24-2024 ambulatory LUCIANADEANDRA GREEN Facility:[facility] Start: 10-24-2024 End: 10-24-2024 Patient encounter procedure Luciana Green DO Work Phone: Obstetrics/Gynecology Comment on above: Thickened endometriu m (Primary Dx) Start: 10-21-2024 End: 10-22-2024 Clinisync Result Encounter Generic External Data Provider [facility] External Department Unsolicited Start: 10-21-2024 End: 10-22-2024 Clinisync Result Encounter Generic External Data Provider [facility] External Department Unsolicited Start: 10-21-2024 End: 10-21-2024 Evaluation and management of inpatient GALINDO MILLER Facility:[facility] Start: 10-16-2024 End: 10-21-2024 Evaluation and management of inpatient GASAN NEMR Facility:[facility] Start: 10-16-2024 End: 10-16-2024 Emergency department patient visit HIBA DORSEY Facility:[facility] Start: 10-16-2024 End: 10-16-2024 ambulatory SELF Facility:[facility] Start: 10-16-2024 End: 10-16-2024 Patient encounter procedure Briana Schwarz PA-C Work Phone: [facility] Comment on above: Confusion (Primary D x); Abdominal pain, unspecified abdominal location Start: 10-10-2024 End: 10-10-2024 Office outpatient visit 15 minutes Galindo Miller TRAFFIC OR SYSTEM DISPATCHER Work Phone: [facility] Comment on above: Non-recurrent acute suppurative otitis media of right ear without spontaneous rupture of tympanic membrane (Primary Dx); Acute non-recurrent sinusitis of other sinus Start: 10-10-2024 End: 10-10-2024 ambulatory GALINDO MILLER Not Available Start: 10-10-2024 End: 10-10-2024 Bamboo flowsheet Galindo Aichholz TRAFFIC OR SYSTEM DISPATCHER Work Phone: [facility] Start: 10-10-2024 End: 10-10-2024 Bamboo flowsheet Galindo Aichholz TRAFFIC OR SYSTEM DISPATCHER Work Phone: [facility] Start: 10-07-2024 End: 10-09-2024 Refill Laurie Anton TRAFFIC OR SYSTEM DISPATCHER Work Phone: [facility] Comment on above: Type 2 diabetes fernandez itus without complications (CMS/HCC) Start: 09-30-2024 End: 09-30-2024 Bamboo flowsheet Galindo Aichholz TRAFFIC OR SYSTEM DISPATCHER Work Phone: [facility] Start: 09-30-2024 End: 09-30-2024 Bamboo flowsheet Galindo Aichholz TRAFFIC OR SYSTEM DISPATCHER Work Phone: [facility] Start: 09-30-2024 End: 09-30-2024 Transitional care manage srvc 14 day discharge Galindo Brialexandrefredrickz TRAFFIC OR SYSTEM DISPATCHER Work Phone: [facility] Comment on [...] perforation Start: 09-30-2024 End: 09-30-2024 ambulatory GALINDO AICHHOLZ Not Available Start: 09-20-2024 Evaluation and management of inpatient KAYA RITIKA [facility] Start: 09-20-2024 Evaluation and management of inpatient DANIA SANDOVAL [facility] Start: 09-19-2024 Evaluation and management of inpatient KAYLEIGH RIVERA [facility] Start: 09-18-2024 ambulatory ANNELISE Rico [facility] Start: 09-17-2024 Emergency department patient visit ANNELISE PIERCE [facility] Start: 09-17-2024 End: 09-21-2024 Evaluation and management of inpatient EDMUNDO DOMINIQUE [facility] Start: 08-30-2024 End: 08-30-2024 Refill Galindo Miller TRAFFIC OR SYSTEM DISPATCHER Work Phone: [facility] Comment on above: UTI symptoms (Primar y Dx); Vaginal yeast infection Start: 08-29-2024 End: 08-29-2024 Clinisync Result Encounter Galindo Miller TRAFFIC OR SYSTEM DISPATCHER Work Phone: [facility] External Department Unsolicited Start: 08-29-2024 End: 08-29-2024 Clinisync Result Encounter Galindo Paul TRAFFIC OR SYSTEM DISPATCHER Work Phone: [facility] External Department Unsolicited Start: 08-23-2024 End: 08-23-2024 Orders Only Galindofranky Miller TRAFFIC OR SYSTEM DISPATCHER Work Phone: [facility] Comment on above: Hypernatremia (Prima ry Dx) Start: 08-20-2024 End: 08-20-2024 Bamboo flowsheet Galindo Paul TRAFFIC OR SYSTEM DISPATCHER Work Phone: [facility] Start: 08-20-2024 End: 08-20-2024 Bamboo flowsheet Galindo Paul TRAFFIC OR SYSTEM DISPATCHER Work Phone: [facility] Start: 08-20-2024 End: 08-20-2024 Clinisync Result Encounter Galindo Paul TRAFFIC OR SYSTEM DISPATCHER Work Phone: [facility] External Department Unsolicited Start: 08-20-2024 End: 08-20-2024 Office outpatient visit 25 minutes Galindo Miller TRAFFIC OR SYSTEM DISPATCHER Work Phone: [facility] Comment on [...] Start: 08-18-2024 End: 08-18-2024 Refill Galindo Aichholz TRAFFIC OR SYSTEM DISPATCHER Work Phone: [facility] Comment on above: Type 2 diabetes fernandez itus without complications (CMS/HCC) Start: 08-11-2024 End: 08-12-2024 Refill Galindo Aichfredrickz TRAFFIC OR SYSTEM DISPATCHER Work Phone: [facility] Comment on above: Type 2 diabetes fernandez itus without complication, without long- term current use of insulin (CMS/[facility]ER[facility]) Start: 02-15-2024 Patient encounter procedure Galindo Miller TRAFFIC OR SYSTEM DISPATCHER Work Phone: [facility] Start: 02-02-2024 End: 02-02-2024 ambulatory [facility] Start: 09-07-2022 Telephone encounter Juice Sears MD Work Phone: Neurology Comment on above: Received Outside [facility] Records ([facility] ) Start: 08-23-2022 End: 08-23-2022 Patient encounter procedure Hal Adam PA-C Work Phone: Neurosurgery Comment on above: Foot drop, right maki t (Primary Dx) Start: 08-15-2022 End: 08-16-2022 ambulatory NURSING HOME AIDE GALINDO BRIAlexandreMEGAN Facility: Start: 07-29-2022 Telephone encounter Juice Sears MD Work Phone: Neurology Comment on above: Other (Digital Forensics Examiner apy Recertification Note ) Start: 07-26-2022 End: 07-26-2022 Office outpatient new 20 minutes Clayton Hopper DPM Work Phone: Dr[facility] 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); Foot drop, right foot Start: 06-16-2022 Telephone encounter Juice Sears MD Work Phone: Neurology Comment on above: Forms; Other ([facility] Physician Orders) Start: 05-25-2022 Telephone encounter Juice Sears MD Work Phone: Neurology Comment on above: Forms (Physician Ord ers (Radha) - [facility]//) Start: 05-23-2022 End: 07-29-2022 ambulatory NURSING HOME AIDE GALINDO MILLER Facility: Start: 05-17-2022 End: 05-17-2022 Patient encounter procedure Juice Sears MD Work Phone: Neurosurgery Comment on above: Spinal stenosis of l umbar region, unspecified whether neurogenic claudication present (Primary Dx); Right leg weakness Start: 05-12-2022 Telephone encounter Juice Sears MD Work Phone: Neurology Comment on above: General ([facility]) Start: 05-06-2022 Telephone encounter Juice Sears MD Work Phone: Neurology Comment on above: Other ([facility] 04/17/22 - 06/15/22) Start: 04-29-2022 Telephone encounter Juice Sears MD Work Phone: Neurology Comment on above: Forms Start: 04-22-2022 Telephone encounter Juice Sears MD Work Phone: Neurology Comment on above: Forms ([facility]) Start: 04-15-2022 Telephone encounter Juice Sears MD Work Phone: Neurology Comment on above: Other (home health o rders requested) Start: 04-07-2022 End: 04-15-2022 Evaluation and management of inpatient Galindo Miller Facility:[facility] Start: 04-07-2022 End: 04-15-2022 Evaluation and management of inpatient MD Atul Vera Work Phone: [facility] Start: 04-05-2022 Evaluation and management of inpatient MARGARETTE [facility] Start: 03-24-2022 End: 03-28-2022 ambulatory Galindo Pricilla Miller Facility:[facility] Start: 03-24-2022 End: 03-28-2022 Evaluation and management of inpatient MD Atul Vera Work Phone: [facility] Start: 03-23-2022 End: 03-23-2022 ambulatory Atul Vera Other [facility] Other Start: 03-23-2022 Postop follow up vis it related to original rey Vera [facility] Neurosurgery Start: 03-17-2022 End: 03-17-2022 ambulatory Galindo Miller Facility:[facility] Start: 03-17-2022 End: 03-17-2022 Departed Referred MD Atul Vera Work Phone: [facility] [place] Start: 03-15-2022 ambulatory NURSING HOME AIDE GALINDO PAUL Facil ity:[facility] Start: 03-09-2022 End: 03-09-2022 ambulatory NON STAFF Facility:[facility] Start: 03-09-2022 End: 03-09-2022 Patient encounter procedure MD Atul Vera Work Phone: [facility]-Pre-Surgical Testing Start: 02-28-2022 End: 02-28-2022 ambulatory Atul Vera Facility:[facility] Start: 02-28-2022 End: 02-28-2022 Patient encounter procedure MD Atul Vera Work Phone: [facility] Start: 02-18-2022 End: 02-19-2022 ambulatory NURSING HOME AIDE GALINDO AICHHOLZ Facility:[facility] Start: 02-11-2022 End: 02-12-2022 ambulatory NURSING HOME AIDE GALINDO AICHFREDRICKZ Facility:[facility] Start: 02-09-2022 End: 02-10-2022 ambulatory NURSING HOME AIDE GALINDO AICHHOLZ Facility:[facility] Procedures Date Procedure Procedure Detail Performing Clinician Start: 05-28-2025 Screening mammograph y bi 2-view breast inc cad Galindo Paul TRAFFIC OR SYSTEM DISPATCHER Work Phone: Start: 01-31-2025 ALL CBC WITH AUTO DIFF Galindo Aicalexandreholz TRAFFIC OR SYSTEM DISPATCHER Work Phone: Start: 12-06-2024 Antibody screen Generic Provider Start: 12-06-2024 Antibody screen GALINDO TYLER Comment on above: Order Comment: Speci men Type: BLOOD SPECIMENOrdering Facility: [facility] Address: [address] [place] [address] Performed By: #### T [facility] ####TOM BEAN BLOOD BANKCLIA [id number] [address] Start: 12-06-2024 [facility] TYPE + SCREEN Gener ic External Data Provider Start: 12-03-2024 Hemoglobin glycosylated a1c Galindo Paul TRAFFIC OR SYSTEM DISPATCHER Work Phone: Start: 11-15-2024 XR CHEST 2V FRONTAL/LAT Generic External Data Provider Start: 10-29-2024 [facility] SURGICAL PATHOLOGY Generic External Data Provider Start: 10-29-2024 Saline infus sonohysterography w/color doppler Luciana Green DO Work Phone: Start: 10-21-2024 [facility] SURGICAL PATHOLOGY Generic External Data Provider Start: 08-29-2024 ALL BASIC METABOLIC PANEL Galindo Romeliaz TRAFFIC OR SYSTEM DISPATCHER Work Phone: Start: 08-20-2024 ALL CBC WITH AUTO DIFF Galindo Aicalexandreholz TRAFFIC OR SYSTEM DISPATCHER Work Phone: Start: 08-20-2024 ALL BASIC METABOLIC PANEL Galindo Aicalexandreholz TRAFFIC OR SYSTEM DISPATCHER Work Phone: Start: 08-20-2024 Hemoglobin glycosylated a1c Galindo Claryholz TRAFFIC OR SYSTEM DISPATCHER Work Phone: Start: 03-27-2022 Urine culture MD Atul Vera Work Phone: Start: 03-23-2022 Plain chest X-ray MD Osborn Work Phone: Start: 03-23-2022 SARS Antigen (LFIA) MD Atul Vera Work Phone: Start: 02-28-2022 Dual energy X-ray absorptiometry MD Atul Vera Work Phone: Urine culture MD Atul sebastian Work Phone: Plan of Treatment Date Care Activity Detail Author Start: 12-26-2026 Glaucoma screening Diabetes: Retinopathy Screening [facility] Start: 02-23-2026 End: 02-23-2026 Patient encounter procedure 02/23/2026 10:30 AM EDT Office Visit [facility] [address], [place] [id number] Galindo Miller, TRAFFIC OR SYSTEM DISPATCHER [address] [place] [phone] [facility] Start: 01-31-2026 Urine screening for protein Diabetes: Urine Protein Screening [facility] Start: 08-21-2025 End: 08-21-2025 Patient encounter procedure 08/21/2025 9:20 AM EST Office Visit [facility] [address] [place] [phone] Galindo Miller, TRAFFIC OR SYSTEM DISPATCHER [address] [place] [phone] [facility] Start: 06-09-2025 Influenza vaccination Influenza Vaccine (#1) [facility] Start: 06-02-2025 Hemoglobin A1c measurement HbA1C [facility] Start: 05-22-2025 End: 07-22-2026 MG Breast - bilateral Screening Bilateral screening mammogram Imaging Routine Encounter for screening mammogram for malignant neoplasm of breast Expected: 05/22/2025 (Approximate), Expires: 07/22/2026 [facility] Work Phone: Comment on above: Expected: 05/22/2025 (Approximate), Expi res: 07/22/2026 Start: 05-22-2025 End: 05-22-2025 Patient encounter procedure [facility] Comment on above: Type 2 diabetes mellitus [...] 05-02-2025 Hemoglobin A1c measurement Diabetes: Hemoglobin A1C [facility] Start: 03-02-2025 Hemoglobin A1c measurement Diabetes: Hemoglobin A1C [facility] Start: 02-25-2025 Urine screening for protein Diabetes: Urine Protein Screening [facility] Start: 02-18-2025 End: 02-18-2025 Patient encounter procedure [facility] Comment on above: Type 2 diabetes mellitus with diabetic n europathy, without long-term current use of insulin (CMS/HCC) (Primary Dx); Benign essential HTN (CMS/HCC); Chronic atrial fibrillation, unspecified (CMS/HCC); Chronic diastolic (congestive) heart failure; Type 2 diabetes mellitus with diabetic peripheral angiopathy without gangrene, without long-term current use of insulin (CMS/HCC); Foot drop, right foot; Type 2 diabetes mellitus without complication, without long-term current use of insulin; Mixed hyperlipidemia (CMS/HCC); Encounter for subsequent annual wellness visit (AWV) in Medicare patient Start: 02-17-2025 Hemoglobin A1c measurement HbA1C [facility] Start: 02-14-2025 Medicare Annual Wellness (AWV) Medicare Annual Wellness (AWV) [facility] Start: 01-30-2025 End: 01-30-2026 CBC W Auto Differential panel - Blood CBC and differential Lab Routine Vitamin B12 deficiency Expected: 01/30/2025 (Approximate), Expires: 01/30/2026 [facility] Work Phone: Comment on above: Expected: 01/30/2025 (Approximate), Expi res: 01/30/2026 Start: 01-30-2025 End: 01-30-2026 Cobalamin (Vitamin B12) [Mass/volume] in Serum or Plasma Vitamin B12 Lab Routine Vitamin B12 deficiency Expected: 01/30/2025 (Approximate), Expires: 01/30/2026 [facility] Comment on above: Expected: 01/30/2025 (Approximate), Expi res: 01/30/2026 Start: 01-30-2025 End: 01-30-2026 Comprehensive metabolic 2000 panel - Serum or Plasma Comprehensive metabolic panel Lab Routine Benign essential HTN (CMS/HCC) Type 2 diabetes mellitus without complication, without long-term current use of insulin Mixed hyperlipidemia (CMS/HCC) Expected: 01/30/2025 (Approximate), Expires: 01/30/2026 [facility] Comment on above: Expected: 01/30/2025 (Approximate), Expi res: 01/30/2026 Start: 01-30-2025 End: 01-30-2026 Hemoglobin A1c/Hemoglobin.total in Blood Hemoglobin A1c Lab Routine Type 2 diabetes mellitus without complication, without long-term current use of insulin Expected: 01/30/2025 (Approximate), Expires: 01/30/2026 [facility] Comment on above: Expected: 01/30/2025 (Approximate), Expi res: 01/30/2026 Start: 01-30-2025 End: 01-30-2026 Lipid 1996 panel - Serum or Plasma Lipid panel Lab Routine Mixed hyperlipidemia (CMS/HCC) Expected: 01/30/2025 (Approximate), Expires: 01/30/2026 [facility] Comment on above: Expected: 01/30/2025 (Approximate), Expi res: 01/30/2026 Start: 01-30-2025 End: 01-30-2026 Microalbumin/Creatinin e panel in random Urine Microalbumin / creatinine, urine ratio Lab Routine Benign essential HTN (CMS/HCC) Type 2 diabetes mellitus without complication, without long-term current use of insulin Expected: 01/30/2025 (Approximate), Expires: 01/30/2026 [facility] Comment on above: Expected: 01/30/2025 (Approximate), Expi res: 01/30/2026 Start: 01-30-2025 End: 01-30-2026 Urinalysis complete panel - Urine Urinalysis with reflex microscopic (clean catch) Lab Routine Benign essential HTN (CMS/HCC) Type 2 diabetes mellitus without complication, without long-term current use of insulin Expected: 01/30/2025 (Approximate), Expires: 01/30/2026 [facility] Comment on above: Expected: 01/30/2025 (Approximate), Expi res: 01/30/2026 Start: 01-24-2025 End: 01-24-2025 Patient encounter procedure 01/24/2025 11:20 AM EDT Office Visit Gastroenterology [address] [place] [address] [place] [address] Dinora Carroll APRN.[address] [place] [address] Evaluate for colonscopy; Abdominal pain, weight loss. Gastroenterology Comment on above: Evaluate for colonscopy; Abdominal pain, weight loss. Start: 01-17-2025 End: 01-17-2025 Patient encounter procedure 01/17/2025 10:30 AM EDT Office Visit Gastroenterology [address] [place] [address] [place] [address] Dinora Carroll APRN.[address] [place] [address] Evaluate for colonscopy; Abdominal pain, weight loss. Gastroenterology Comment on above: Evaluate for colonscopy; Abdominal pain, weight loss. Start: 12-19-2024 Glaucoma screening Diabetes: Retinopathy Screening [facility] Start: 12-17-2024 End: 12-17-2024 Patient encounter procedure 12/17/2024 9:00 AM EDT Office Visit Obstetrics/Gynecology [address] [address] [place] [address] [address] POST OP Obstetrics/Gynecology Comment on above: POST OP Start: 12-06-2024 End: 12-06-2024 Admission to same day surgery center 12/06/2024 7:30 AM EST - 12/06/2024 8:50 AM [facility] [address] [place] [address] [place] [address] [address] EXAM UNDER ANESTHESIA PELVIC / VAGINAL [facility] Comment on above: EXAM [...] physician 12/06/2024 7:30 AM EST Hospital Encounter [facility] [address] [place] [address] [place] [address] [facility] [address] [place] [address] Endometrial polyp [N84.0] [facility] Comment on above: Endometrial polyp [N84.0] Start: 12-03-2024 End: 12-03-2024 Patient encounter procedure 12/03/2024 9:00 AM EST Office Visit [facility] [address] [place] [address] Galindo Miller NP [address] [place] [address] [facility] Start: 11-20-2024 Hemoglobin A1c measurement Diabetes: Hemoglobin A1C [facility] Start: 11-15-2024 End: 11-15-2024 Anesthesia consultation 11/15/2024 1:40 PM EST PAT Pre Anesthesia [address] [facility] [address] [place] [address] DOS 12/06 Pre Anesthesia Comment on above: DOS 12/06 Start: 10-30-2024 End: 10-30-2024 Patient encounter procedure [facility] Comment on above: Delirium due to another medical conditio n (Primary Dx); Type 2 diabetes mellitus with diabetic neuropathy, unspecified ([facility]/HCC); Type 2 diabetes mellitus with diabetic peripheral angiopathy without gangrene ([facility]/HCC); Chronic diastolic (congestive) heart failure ([facility]/HCC); Chronic atrial fibrillation, unspecified (CMS/HCC); Benign essential HTN ([facility]); Endocervical polyp; Abnormal ultrasound of endometrium; Endometrial polyp; Thickened endometrium; Type 2 diabetes mellitus without complication, without long-term current use of insulin ([facility]); Vitamin B12 deficiency; Other thrombophilia ([facility]) Start: 10-29-2024 End: 10-29-2024 Patient encounter procedure OB/Gynecology Comment on above: EMB/SIS cognitive decline Start: 10-24-2024 End: 10-24-2025 US Uterus and Fallopian tubes W saline IU SONOHYSTEROGRAPHY (SIS) US [facility] Anc Imaging Routine Thickened endometrium Expected: 10/24/2024, Expires: 10/24/2025 [facility] Work Phone: Comment on above: Expected: 10/24/2024, Expires: Start: 10-22-2024 End: 10-22-2024 Patient encounter procedure 10/22/2024 8:30 AM EST Office Visit Geriatrics [address] [place] [address] Robby Kim MD [address] [place], [place] [phone] Nurse Britt Frye [address] [place] [address] COGNITIVE DECLINE [facility]iatric[facility] Comment on above: COGNITIVE DECLINE Start: 10-10-2024 End: 10-10-2024 Patient encounter procedure 10/10/2024 3:00 PM EST Office Visit [facility] [address] [place] [address] Galindo Miller NP [address] [place] [phone] Arrived [facility] Comment on above: Arrived Start: 10-09-2024 Advance Directive Discussion Advance Directive Discussion [facility] Start: 09-30-2024 End: 09-30-2024 Patient encounter procedure 09/30/2024 10:30 AM EST Office Visit [facility] [address] [place] [address] Galindo Miller NP [address] [place] [address] Acute metabolic encephalopathy (Primary Dx); Type 2 diabetes mellitus with diabetic neuropathy, without long-term current use of insulin (CMS/HCC); Chronic atrial fibrillation (HCC) (CMS/HCC); Benign essential HTN (CMS/HCC); Chronic diastolic congestive heart failure (CMS/HCC); Acute cholecystitis; Type 2 diabetes mellitus without complication, without long-term current use of insulin (CMS/HCC); Thickened endometrium [facility] Comment on above: Acute metabolic encephalopathy (Primary [...] Routine Hypernatremia Expected: 09/06/2024 (Approximate), Expires: 08/23/2025 [facility] Work Phone: Comment on above: Expected: 09/06/2024 (Approximate), Expi res: 08/23/2025 Start: 09-06-2024 End: 08-23-2025 Osmolality of Serum or Plasma Osmolality Lab Routine Hypernatremia Expected: 09/06/2024 (Approximate), Expires: 08/23/2025 [facility] Comment on above: Expected: 09/06/2024 (Approximate), Expi res: 08/23/2025 Start: 09-06-2024 End: 08-23-2025 Osmolality, urine Osmolality, urine Lab Routine Hypernatremia Expected: 09/06/2024 (Approximate), Expires: 08/23/2025 [facility] Comment on above: Expected: 09/06/2024 (Approximate), Expi res: 08/23/2025 Start: 09-06-2024 End: 08-23-2025 Urinalysis complete panel - Urine Urinalysis with reflex microscopic (clean catch) Lab Routine Hypernatremia Expected: 09/06/2024 (Approximate), Expires: 08/23/2025 [facility] Comment on above: Expected: 09/06/2024 (Approximate), Expi res: 08/23/2025 Start: 08-20-2024 End: 08-20-2025 Basic metabolic 1998 panel - Serum or Plasma Basic metabolic panel Lab Routine Type 2 diabetes mellitus without complication, without long-term current use of insulin (CMS/HCC) Expected: 08/20/2024 (Approximate), Expires: 08/20/2025 [facility] Work Phone: Comment on above: Expected: 08/20/2024 (Approximate), Expi res: 08/20/2025 Start: 08-20-2024 End: 08-20-2025 CBC W Auto Differential panel - Blood CBC and differential Lab Routine Other thrombophilia (CMS/HCC) Chronic atrial fibrillation (HCC) (CMS/HCC) Expected: 08/20/2024 (Approximate), Expires: 08/20/2025 [facility] Comment on above: Expected: 08/20/2024 (Approximate), Expi res: 08/20/2025 Start: 08-20-2024 End: 08-20-2024 Patient encounter procedure 08/20/2024 9:20 AM EST Office Visit [facility] [address] [place] [address] Galindo Miller NP [address] [place] [phone] [facility] Start: 06-09-2024 Covid-19 Vaccine ( season) Covid-19 Vaccine ( season) [facility] Start: 06-09-2024 Influenza vaccination Influenza Vaccine (#1) [facility] Start: 11-25-2023 Hemoglobin A1c measurement Diabetes: Hemoglobin A1C [facility] Start: 06-09-2022 Influenza vaccination INFLUENZA (#1) [facility] Start: 04-14-2022 [facility] Work Phone: Start: 04-07-2022 Hospital admission [facility] Work Phone: Start: 04-07-2022 Referral to clinical veterinary surgery technician [facility] Work Phone: Start: 03-28-2022 [facility] Work Phone: Start: 03-27-2022 Urine culture Urine Culture [facility] Start: 03-24-2022 Referral to neurologist [facility] Work Phone: Start: 03-24-2022 Hospital admission [facility] Work Phone: Start: 03-17-2022 Excision of lumbar intervertebral disc OR Lumbar Discectomy (Not Applicable) [facility] Start: 11-23-2021 COVID-19 VACCINE (4 - Booster for Pfizer series) COVID-19 VACCINE (4 - Booster for Pfizer series) [facility] Start: 10-09-2021 ADVANCE DIRECTIVE DISCUSSION ADVANCE DIRECTIVE DISCUSSION [facility] Start: 10-09-2021 DEPRESSION ASSESSMENT DEPRESSION ASSESSMENT [facility] Start: 09-17-2021 COVID-19 VACCINE (4 - Booster for Pfizer series) COVID-19 VACCINE (4 - Booster for Pfizer series) [facility] Start: 2015 RSV Vaccine (1 - 1-dose 75+ series) RSV Vaccine (1 - 1-dose 75+ series) [facility] Start: 2005 BONE DENSITY BONE DENSITY [facility] Start: 2005 Screening for osteoporosis Bone Density Screening [facility] Start: 1990 SHINGRIX VACCINE (1 of 2) SHINGRIX VACCINE (1 of 2) [facility] Start: 1959 Urine microalbumin profile [facility] Start: 1958 Anxiety Screening Anxiety Screening [facility] Start: 1958 Depression Screening Depression Screening [facility] Start: 1958 Hepatitis B surface antibody level LDL CHOLESTEROL [facility] Start: 1950 3 comp foot exam completed DIABETIC FOOT EXAM [facility] Start: 1950 Diabetic foot examination Diabetic Foot Exam [facility] Start: 1950 Glaucoma screening Dilated Retinal Exam [facility] Start: 1950 Hepatitis B screening URINE ALBUMIN:CREATININE RATIO [facility] Start: 1950 Hepatitis C antibody, confirmatory test DILATED RETINAL EXAM [facility] Start: 1946 PNEUMOCOCCAL: 65+ (1 - PCV) PNEUMOCOCCAL: 65+ (1 - PCV) [facility] Start: 1945 Hemoglobin A1c/Hemoglobin.total in Blood HBA1C [facility] Basophil count [facility] Work Phone: Basophil percent differential count [facility] Work Phone: Calcium [Mass/volume ] in Serum or Plasma [facility] Work Phone: Carbon dioxide, tota l [Moles/volume] in Serum or Plasma [facility] Work Phone: Chloride [Moles/volume] in Serum or Plasma [facility] Work Phone: Creatinine and Glomerular filtration rate.predicted panel - Serum, Plasma or Blood [facility] Work Phone: Endometrial bx w/wo endocervix bx w/o dilat spx ENDOMETRIAL BIOPSY Procedures Routine Thickened endometrium Ordered: 10/24/2024 [facility] Comment on above: Ordered: 10/24/2024 Eosinophil percent differential count [facility] Work Phone: Eosinophils [#/volum e] in Blood [facility] Work Phone: Erythrocyte mean corpuscular volume determination [facility] Work Phone: Erythrocytes [#/volume] in Blood [facility] Work Phone: Glucose [Mass/volume ] in Serum or Plasma [facility] Work Phone: Hematocrit [Volume Fraction] of Blood [facility] Work Phone: Hemoglobin [Mass/volume] in Blood [facility] Work Phone: Hemoglobin distribution, width determination [facility] Work Phone: Hysteroscopy bx endometrium&/polypc w/wo d&c HYSTEROSCOPY W/ POLYPECTOMY W/ D&C Endometrial polyp [facility] Leukocytes [#/volume ] in Blood [facility] Work Phone: Lymphocyte count [facility] Work Phone: Lymphocyte percent differential count [facility] Work Phone: Mean corpuscular hemoglobin concentration determination [facility] Work Phone: Mean corpuscular hemoglobin determination [facility] Work Phone: Measurement of renal function [facility] Work Phone: Monocyte count [facility] Work Phone: Monocyte percent differential count [facility] Work Phone: Neutrophil count [facility] Work Phone: Neutrophil percent differential count [facility] Work Phone: Patient Education How to Don an AFO [employer] [facility] Work Phone: Patient referral [facility] Work Phone: Pelvic examination w/anesthesia other than local EXAM UNDER ANESTHESIA PELVIC / VAGINAL Endometrial polyp [facility] Platelet mean volume determination [facility] Work Phone: Platelets [#/volume] in Blood [facility] Work Phone: Potassium [Moles/volume] in Serum or Plasma [facility] Work Phone: SARS-CoV-2 (COVID-19 ) N gene [Presence] in Respiratory specimen by HARMONY with probe detection [facility] Work Phone: Sodium [Moles/volume ] in Serum or Plasma [facility] Work Phone: SURGICAL PATHOLOGY SURGICAL PATH OLOGY Lab Routine Thickened endometrium 10/29/2024 10:[address] 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 Other hyperlipidemia 11/15/2024 2:40 PM EST [facility] Immunizations Immunization Date Immunization Notes Care Provider Deyanira cabral 07-22-2024 influenza, high dose seasonal, preservative-free Galindo Aichholz TRAFFIC OR SYSTEM DISPATCHER Work Phone: [facility] 07-22-2024 influenza virus vacc ine, unspecified formulation Galindo Aichholz TRAFFIC OR SYSTEM DISPATCHER Work Phone: [facility] 07-25-2023 Influenza, High-dose Seasonal, Quadrivalent, Preservative Free Galindo Aichholz TRAFFIC OR SYSTEM DISPATCHER Work Phone: [facility] 07-25-2023 influenza virus vacc ine, unspecified formulation Galindo Aichholz TRAFFIC OR SYSTEM DISPATCHER Work Phone: [facility] 08-08-2022 Influenza, High-dose Seasonal, Quadrivalent, Preservative Free Galindo Aichholz TRAFFIC OR SYSTEM DISPATCHER Work Phone: [facility] 07-23-2021 COVID-19 mRNA, Comir libia (Pfizer) MD Atul Vera Work Phone: [facility] 07-16-2021 Influenza, Seasonal, Quadrivalent, Adjuvanted Galindo Aichholz TRAFFIC OR SYSTEM DISPATCHER Work Phone: [facility] 12-03-2020 COVID-19 mRNA, Comir libia (Pfizer) MD Atul Vera Work Phone: [facility] 11-11-2020 COVID-19 mRNA, Comir libia (Pfizer) MD Atul Vera Work Phone: [facility] 06-06-2020 influenza, injectabl e, quadrivalent, preservative free Galindo Aichholz TRAFFIC OR SYSTEM DISPATCHER Work Phone: [facility] 07-18-2019 Seasonal, quadrivale nt, recombinant, injectable influenza vaccine, preservative free Galindo Aichholz TRAFFIC OR SYSTEM DISPATCHER Work Phone: [facility] 07-25-2018 Seasonal trivalent influenza vaccine, adjuvanted, preservative free Galindo Aichholz TRAFFIC OR SYSTEM DISPATCHER Work Phone: [facility] 07-28-2017 influenza, high dose seasonal, preservative-free Galindo Aichholz TRAFFIC OR SYSTEM DISPATCHER Work Phone: [facility] 07-26-2016 pneumococcal polysaccharide vaccine, 23 valent Galindo Aichholz TRAFFIC OR SYSTEM DISPATCHER Work Phone: [facility] 03-23-2015 pneumococcal conjuga te vaccine, 13 valent Galindo Aichholz TRAFFIC OR SYSTEM DISPATCHER Work Phone: [facility] Payers Date Payer Category Payer Private Health Insurance [id number] 2022 Private Health Insurance [id number] 2022 Self-pay [id number] 2005 Medicare MEDICARE MEDICAR E A AND B [id number] 2005-Present [phone] [address] [address] [place] [address] Medicare [id number] 2005 Medicare [id number] 1959 Medicare [id number] 1959 Unknown [id number] 1940 Unknown [id number] 2.16.840.1.540631.3.579.2. 593 1940 Unknown [id number] 2.16.840.1.824063.3.579.2. 593 1940 Unknown [id number] 2.16.840.1.109783.3.579.2. 593 1940 Unknown [id number] 2.16.840.1.325560.3.579.2. 593 1940 Unknown [id number] 2.16.840.1.906060.3.579.2. 593 1940 Unknown [id number] 2.16.840.1.186667.3.579.2. 593 1940 Unknown [id number] 2.16.840.1.302816.3.579.2. 1259 1940 Unknown [id number] 2.16.840.1.671513.3.579.2. 1259 1940 Unknown [id number] 2.16.840.1.162592.3.579.2. 1259 1940 Unknown [id number] 2.16.840.1.198947.3.579.2. 9 1940 Unknown [id number] 2.16.840.1.745898.3.579.2. 1259 1940 Unknown [id number] 2.16.840.1.621341.3.579.2. 1259 1940 Unknown [id number] 2.16.840.1.756613.3.579.2. 1259 Unknown [id number] 2.16.840.1.269534.3.579.2. 531 Unknown [id number] 2.16.840.1.882468.3.579.2. 531 Unknown [id number] 2.16.840.1.215195.3.579.2. 531 Unknown [id number] 2.16.840.1.743223.3.579.2. 531 Unknown [id number] 2.16.840.1.532070.3.579.2. 531 Social History Date Type Detail Facility Tobacco smoking stat [facility] Unknown if ever smoked [facility] Work Phone: Start: 1940 Sex Assigned At Female F [facility] Start: 03-09-2022 End: 02-15-2024 Tobacco smoking status NHIS Never smoked tobacco (finding) [facility] Start: 02-15-2024 End: 02-18-2025 Sex Assigned At [employer] Other Start: 05-17-2022 Tobacco smoking stat [facility] Tobacco smoking consumption unknown [facility] Start: 1940 Sex Assigned At Not on file [facility] Start: 05-07-2022 End: 08-23-2022 Exposure to SARS-CoV-2 (event) Not sure [facility] Start: 02-15-2024 End: 10-24-2024 Tobacco use and exposure Smokeless tobacco non-user [facility] Start: 02-15-2024 End: 05-22-2025 Alcoholic beverage intake Lifetime non-drinker (finding) [facility] Start: 02-15-2024 End: 02-18-2025 History of Social function [facility] Start: 02-15-2024 Alcohol Comment coffee: 1-2 daily NO [facility] Has the [employer], [employer], or water [employer] threatened to shut off services in your home in past 12Mo No [facility] (I/We) worried carola er (my/our) food would run out before (I/we) got money to buy more. Never true [facility] In the past 12 month s, has lack of transportation kept you from medical appointments or from getting medications? No [facility] Start: 11-02-2024 Gender identity Identifies as female gender (finding) [facility] NEGATED: Highlighted rowStart: NINF History of tobacco use Passive smoker [facility] Medical Equipment Procedure Code Equipment Code Equipment Origin al Text Equipment Identifier Dates [id number] Start: 12-03-2024 End: 12-03-2025 Goals Date Patient Goal Desired Activity /State Functional Status Date Assessment Result Facility 02-18-2025 Patient Health Questionnaire 2 item (PHQ-2) [Reported] [facility] 10-21-2024 Are you deaf, or do you have serious difficulty hearing No 10/21/2024 6:01 PM Izabel Longo RN [facility] 10-21-2024 Are you blind, or do you have serious difficulty seeing, even when wearing glasses No 10/21/2024 6:01 PM Izabel Longo RN [facility] 10-21-2024 Do you have serious difficulty walking or climbing stairs No 10/21/2024 6:01 PM Izabel Longo RN [facility] 10-21-2024 Do you have difficul ty dressing or bathing No 10/21/2024 6:01 PM Izabel Longo, ELFEGO [facility] 10-21-2024 Because of a physica l, mental, or emotional condition, do you have difficulty doing errands alone such as visiting a physician's office or shopping No 10/21/2024 6:01 PM Izabel Longo RN [facility] 04-15-2022 Functional status Patient is 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 [facility] Work Phone: 03-28-2022 Functional status Patient is 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 [facility] Work Phone: 03-24-2022 Functional status Patient Not at [facility] Work Phone: [facility] Mental Status Date Assessment Result Facility 10-21-2024 Because of a physica l, mental, or emotional condition, do you have serious difficulty concentrating, remembering, or making decisions No 10/21/2024 6:01 PM Izabel Longo RN No [facility] 04-15-2022 Cognitive function Cognitive Sta tus Patient at [facility] Work Phone: 03-28-2022 Cognitive function Cognitive Sta tus Patient at [facility] Work Phone: 03-24-2022 Cognitive function Cognitive Sta tus Patient Not at [facility] Work Phone: Clinical Notes 03-23-2022 to 05-22-2025 Galindo Miller, RONNIE - 05/22/2025 10:30 AM Jasen Miller, RONNIE - 05/22/2025 6:30 AM EDDuarte Miller, TRAFFIC OR SYSTEM DISPATCHER - 05/22/2025 6:30 AM EDDuarte Miller, RONNIE - 05/22/2025 6:29 AM EDTPatient Instructions Note [...] being taken. She does not see a program development specialist.Eye exam is current. Hypertension This is a [...] no compliance problems. Hypertensive end-organ damage includes CAD/CO. There is no history of heart failure or PVD. SUBJECTIVE: MEDICATIONS: Current Outpatient Medications Medication Instructions Blood Glucose Monitoring Suppl (True Metrix Meter) w/Device kit USE DIRECTED bumetanide (BUMEX) 1 mg, Daily PRN cyanocobalamin (VITAMIN B-12) 1,000 mcg, Daily RT Drug [place] Lancets 30G mis use to test [...] blood sugar control documented in this encounter [facility] 05-22-2025 Instructions Galindo Milelr NP - 05/22/2025 10:30 AM EDT Glipizide 5mg pill: cut the pill in half, and only take 2.5mg twice a day with meal (breakfast and supper time), if blood sugars are running over 150 consistently call me documented in this encounter [facility] 02-18-2025 History of Present illness Narrative Associated [...] year: yes for mental status changes Specialist: net web developerJANOA/Living Will: yes Concerns: Hypertension This is a [...] no compliance problems. Hypertensive end-organ damage includes CAD/CO. There is no history of heart failure. [...] being taken. She does not see a program development specialist.Eye exam is current. SUBJECTIVE: MEDICATIONS: Current Outpatient Medications Medication Instructions Blood Glucose Monitoring Suppl (True Metrix Meter) w/Device kit USE DIRECTED bumetanide (BUMEX) 1 mg, Oral, Daily PRN cyanocobalamin (VITAMIN B-12) 1,000 mcg, Oral, Daily RT Drug [place]t Lancets 30G [facility] use to test BLOOD SUGAR DAILY Eliquis [...] 2 diabetes mellitus with diabetic neuropathy, unspecified ([facility]) - Primary Close monitoring of feet for s/s wounds, callous, or infection Good blood sugar control Acute gastric ulcer without hemorrhage or perforation Relevant Medications pantoprazole (ProtoNix) 40 MG EC tablet Type 2 diabetes mellitus with diabetic peripheral angiopathy without gangrene ([facility]) Continue with risk factor modification and control [...] up yearly and prn Associated Problem(s): Hyperlipidemia ([facility]) On zetia and crestor Check labs yearly [...] blood sugar control documented in this encounter [facility] 02-18-2025 Instructions Galindo Miller NP - 02/18/2025 10:30 AM EDT No labs needed, documented in this encounter [facility] 01-17-2025 Instructions Dinora Carroll APRN.CNP - 01/17/2025 10:47 AM EDT Thank you for seeing me in clinic today. As we discussed, my recommendations are as follows: 1.Consult to general surgery If you have any questions about the above treatment plan, please do not hesitate to call the office or send me a [email or web address] message. documented in this encounter [facility] 01-17-2025 History and physical note Consultation [...] began experiencing abdominal pain. Initial evaluations at [facility] suggested the presence of multiple gallstones, with recommendations for cholecystectomy. However, subsequent evaluations by another physician at the same hospital contradicted this recommendation, stating that surgery was not necessary. After a week of hospitalization and multiple tests, no definitive cause for the abdominal pain was identified. Due to persistent severe pain, patient was taken to the [facility] Emergency Room, where further evaluations were conducted, including an endoscopy and various scans. A colonoscopy performed at [facility] revealed non-cancerous polyps, which were removed. During the evaluations at [facility], a scan indicated uterine thickening, leading to concerns about potential cancer. A can filling machine operator at [facility] subsequently removed a polyp measuring 2 cm by 9 cm from the uterus and cervix. Following this procedure, patient's abdominal pain reportedly resolved. Patient has a known history of gallstones, with conflicting medical opinions on the necessity of cholecystectomy. One physician at [facility] recommended immediate surgery, stating the gallbladder was completely full of stones, while another physician at [facility] advised against it. Patient has also [...] weight loss. This note was dictated using [employer] speech recognition software and may contain some errors that were a result of the program not accurately transcribing what was dictated. The patient consented to the use of ambient [employer] software for draft documentation of the visit consistent with [facility] s Notice of Privacy Practices. Dinora Carroll APRN.CNP [facility] 01-17-2025 History and physical note Consultation [...] began experiencing abdominal pain. Initial evaluations at [facility] suggested the presence of multiple gallstones, with recommendations for cholecystectomy. However, subsequent evaluations by another physician at the same hospital contradicted this recommendation, stating that surgery was not necessary. After a week of hospitalization and multiple tests, no definitive cause for the abdominal pain was identified. Due to persistent severe pain, patient was taken to the [facility] Emergency Room, where further evaluations were conducted, including an endoscopy and various scans. A colonoscopy performed at [facility] revealed non-cancerous polyps, which were removed. During the evaluations at [facility], a scan indicated uterine thickening, leading to concerns about potential cancer. A can filling machine operator at [facility] subsequently removed a polyp measuring 2 cm by 9 cm from the uterus and cervix. Following this procedure, patient's abdominal pain reportedly resolved. Patient has a known history of gallstones, with conflicting medical opinions on the necessity of cholecystectomy. One physician at [facility] recommended immediate surgery, stating the gallbladder was completely full of stones, while another physician at [facility] advised against it. Patient has also [...] weight loss. This note was dictated using [employer] speech recognition software and may contain some errors that were a result of the program not accurately transcribing what was dictated. The patient consented to the use of [employer] software for draft documentation of the visit consistent with [facility] s Notice of Privacy Practices. Dinora Carroll APRN.LEXI documented in this encounter [facility] 12-17-2024 Note HNO ID: [id number] Author: LUCIANA GREEN DO Service: ? Author [...] 2. Postop restrictions reviewed. Luciana Green DO [facility] 12-17-2024 History of Present illness Narrative DATE OF SERVICE: 12/17/2024 PROBLEM: Saeed Sarabia presents for postop visit. SURGERY & DATE: 12/06/2024, Operative hysteroscopy, polypectomy PATHOLOGY: A. Uterus, endometrium, polypectomy -Fragments of benign endometrial polyp B. Uterus, endometrium, dilation and curettage -Fragments of superficial inactive endometrium -Fragments of benign endometrial polyp SUBJECTIVE/INTERVAL HISTORY: Saeed S Cornell feels well. Denies SOB, CP, cough. Appetite [...] 2. Postop restrictions reviewed. Luciana Green DO Criminal Justice Professor offered: Patient declines. documented in this encounter [facility] 12-17-2024 Note HNO ID: [id number] Author: CARA YOUNG MA Service: ? Author Type: Major Sales Associate Type: Progress Notes Filed: 12/17/2024 12:51 Note Text: Criminal Justice Professor offered: Patient declines. [facility] 12-06-2024 Note HNO ID: [id number] Author: MARGARETTE TRIANA APRN.BATCH DUMPER Service: ? Author Type: Nurse Hydraulic Repairer Type: Anesthesia Procedure Notes Filed: 12/06/2024 08:19 Note Text: ANESTHESIOLOGY PROCEDURE NOTE PIV General Information Procedure Start Time/Medication Administration: 12/06/2024 8:00 AM Procedure End Time: 12/06/2024 8:00 AM Patient Location: OR Staffing BATCH DUMPER: Margarette Triana APRN.BATCH DUMPER Performed by: PACO Preparation Sterility Preparation: hand hygiene performed prior to procedure, surgical cap used, mask used, skin prep agent completely dried prior to procedure Site Prep: chlorhexidine Procedure Details Indication: need for IV access Needle Size/Type: 20 gauge angiocath Orientation: Right Location: Wrist Imaging Guidance Used: No SIGNATURE: Margarette Triana APRN.BATCH DUMPER PATIENT NAME: Saeed Sarabia DATE: December 06, 2024 TIME: 8:19 AM CSN: [id number] [facility] 12-06-2024 Note HNO ID: [id number] Author: MARGARETTE TRIANA APRN.CRNA Service: ? Author Type: Nurse Hydraulic Repairer Type: Anesthesia Procedure Notes Filed: 12/06/2024 08:18 Note Text: ANESTHESIOLOGY PROCEDURE NOTE Airway General Information Procedure Start Time/Medication Administration: 12/06/2024 7:45 AM Procedure End Time: 12/06/2024 7:45 AM Patient location during procedure: OR Patient identity confirmed: arm band and patient Staffing BATCH DUMPER: Margarette Triana APRN.BATCH DUMPER Performed by: PACO Indications and Patient Condition Indications for airway management: anesthesia Preoxygenated: yes anesthesia circuit Patient position: sniffing Method: sleep Difficult Mask: No Final Airway Details Final airway type: endotracheal airway Final Endotracheal Airway: ETT Cuffed: yes Successful intubation technique: video laryngoscopy Devices used: [facility] Endotracheal tube insertion site: oral Blade size: #3 ETT size (mm): 7.0 Measured from: lips Measurement (cm): 21 Placement verified by: capnometry Cormack-Lehane Classification: grade I - full view of glottis Number of attempts at approach: 1 Airway not difficult Comments Atraumatic intubation. Dentition and lips remain the same as preop. SIGNATURE: Margarette Triana APRN.CRNA PATIENT NAME: Saeed Sarabia DATE: December 06, 2024 TIME: 8:17 AM CSN: [id number] [facility] 12-03-2024 History of Present illness Narrative [...] blood sugar control documented in this encounter [facility] 12-03-2024 Instructions Galindo Miller NP - 12/03/2024 9:00 AM EST No med dose changes documented in this encounter [facility] 11-15-2024 Note HNO ID: [id number] Author: MAXINE KABA RT(R) Service: ? Author [...] PATIENT PRESENTS WITH AN IMPLANTABLE OR ATTACHED APARTMENT HOUSE MANAGER: No RADIOLOGY DEPARTMENT: General X-ray: Exam(s) Completed: Chest X-Ray PERIPHERAL IV DATA: Not applicable SIGNED BY: RT Faith(R) November 15, 2024 2:41 PM [facility] 11-15-2024 History of Present illness Narrative Radiology [...] PATIENT PRESENTS WITH AN IMPLANTABLE OR ATTACHED APARTMENT HOUSE MANAGER: No RADIOLOGY DEPARTMENT: General X-ray: Exam(s) Completed: Chest X-Ray PERIPHERAL IV DATA: Not applicable SIGNED BY: RT Faith(R) November 15, 2024 2:41 PM documented in this encounter [facility] 11-15-2024 Instructions Maxine Singh APRN.AIRFRAME AND POWERPLANT MECHANIC - 11/15/2024 2:13 PM EST PATIENT PREOPERATIVE INSTRUCTIONS Luciana Green DO has scheduled you for your procedure at this surgery center: [facility]: [phone] --[id number] [id number]. Please check in on the 1st floor [...] Instructions:N/A If you are currently using a bunh-niw-gutn injectable or oral medication for diabetes or [...] NSAIDS as needed. STOP ELIQUIS 2 DAYS NH EOP Important Reminders: - If you use CPAP/BIPAP, bring the machine with you to the surgery center. - If you are prescribed inhalers for breathing, continue using them. If you are on dialysis, please check with your dialysis center or professional development instructor to see if any adjustments need to [...] Procedures: - YOU MUST HAVE A RESPONSIBLE MUD ANALYSIS WELL LOGGING OPERATOR TAKE YOU HOME. A TECHNICIAN TEST SYSTEMS OR STRETCHING PRESS OPERATOR CANNOT BE MADE A RESPONSIBLE MUD ANALYSIS WELL LOGGING OPERATOR. - We recommend that a responsible person [...] Advance Directive, please fax a copy to [phone] or email to for it to be [...] into your chart that day. Maxine Singh APRN.LEILA documented in this encounter [facility] 11-15-2024 History and physical note Images from the original note were not included. [facility] HISTORY AND PHYSICAL EXAMINATION SERVICE DATE: 11/14/2024 SERVICE TIME: 3:47 PM PRIMARY CARE PHYSICIAN: Galindo Miller CNP, NURSING HOME AIDE Assessment Patient has the following medical conditions which may affect ashley-operative course: Atrial fibrillation (HCC) Assessment: takes Eliquis daily, will stop 2 days pre op,currently stable Benign essential HTN Assessment: takes Lisinopril,Metoprolol,stable BP 147/56 taken at [facility] visit 11/15/24 CAD (coronary artery disease) Assessment: had LAD stent placed 2005 followed per Door To Door Selling Agent Dr. Roberson DM type 2 (diabetes mellitus, type 2) (HCC) Assessment: takes Metformin,Glipizide currently stable Glucose Date Value Ref Range Status 10/20/2024 135 (H) 74 - 99 mg/dL Final Comment: The [place] Diabetes Association (ADA) provides guidance for cutoff [...] Standards of Medical Care in Diabetes 2016, [place] [employer]. Diabetes Care. 2016.39(Suppl 1). HLD (hyperlipidemia) Assessment: takes Vic Stewart, gaston Wallace Activity Status Index: METS: Walk indoors, [...] large neck Non-male patient STOP-Bang Score: 1 [id number] Score: Age: >=75 Sex: female CHF history: No Hypertension history: Yes Stroke/TIA/thromboembolism history: No Vascular disease history: No Diabetes history: Yes [id number] Score: 5 ARISCAT Score: Age: >80 Preoperative [...] fevers. Neurological: No history of TIA's, stroke, AIRFRAME AND POWERPLANT MECHANIC tumor, impaired sensorium, hemiplegia, paraplegia or quadraplegia. [...] > 1 time per night or hematuria. DESK CLERK: Negative for abnormal vaginal bleeding, abnormal vaginal [...] 413 QTC Calculation (Bazett) 465 Calculated P [place] 97 Calculated R [place] -42 Calculated T [place] 100 Impression Sinus rhythm Atrial premature complex Borderline short NH interval Left bundle branch block Abnormal ECG No Stemi Confirmed by JASON SAGASTUME MD ([id number]) on 10/16/2024 4:13:30 PM Recent Results (from the past 14800 hour(s)) ECHO Collection Time: 03/29/22 3:52 PM [...] 14, 2024 TIME: 4:02 PM PAGER/CONTACT #: [facility] 11-15-2024 History and physical note Images from the original note were not included. [facility] Pre-Anesthesia Consultation Clinic HISTORY AND PHYSICAL EXAMINATION SERVICE DATE: 11/14/2024 SERVICE TIME: 3:47 PM PRIMARY CARE PHYSICIAN: Galindo Winifred Aichholz, NURSING HOME AIDE, NURSING HOME AIDE Assessment Patient has the following medical conditions which may affect ashley-operative course: Atrial fibrillation (HCC) Assessment: takes Eliquis daily, will stop 2 days pre op,currently stable Benign essential HTN Assessment: takes Lisinopril,Metoprolol,stable BP 147/56 taken at [facility] visit 11/15/24 CAD (coronary artery disease) Assessment: had LAD stent placed 2005 followed per Door To Door Selling Agent Dr. Roberson DM type 2 (diabetes mellitus, type 2) (HCC) Assessment: takes Metformin,Glipizide currently stable Glucose Date Value Ref Range Status 10/20/2024 135 (H) 74 - 99 mg/dL Final Comment: The [place] Diabetes Association (ADA) provides guidance for cutoff [...] Standards of Medical Care in Diabetes 2016, [place] [employer]. Diabetes Care. 2016.39(Suppl 1). HLD [...] large neck Non-male patient STOP-Bang Score: 1 [id number] Score: Age: >=75 Sex: female CHF history: No Hypertension history: Yes Stroke/TIA/thromboembolism history: No Vascular disease history: No Diabetes history: Yes [id number] Score: 5 ARISCAT Score: Age: >80 Preoperative [...] at this time: cardiology (cardiac clearance in [facility] of 11/07/[address] Jose Roberson). [...] fevers. Neurological: No history of TIA's, stroke, AIRFRAME AND POWERPLANT MECHANIC tumor, impaired sensorium, hemiplegia, paraplegia or quadraplegia. [...] > 1 time per night or hematuria. DESK CLERK: Negative for abnormal vaginal bleeding, abnormal vaginal [...] 413 QTC Calculation (Bazett) 465 Calculated P [place] 97 Calculated R [place] -42 Calculated T [place] 100 Impression Sinus rhythm Atrial premature complex Borderline short NH interval Left bundle branch block Abnormal ECG No Stemi Confirmed by JASON SAGASTUME MD ([id number]) on 10/16/2024 4:13:30 PM Recent Results (from the past 91364 hour(s)) ECHO Collection Time: 03/29/22 3:52 PM [...] PM PAGER/CONTACT #: documented in this encounter [facility] 11-13-2024 Note Patient: Saeed lanier Procedure Summary Date: 11/13/24 Room / Location: [facility] [place] Anesthesia Start: 1039 Anesthesia Stop: 1144 Procedure: [...] per anesthesia protocol. No notable events documented. [facility] 11-13-2024 Note H&P reviewed. The pa [...] understanding of this and agreed to proceed. [facility] 11-13-2024 Note Patient: Saeed lanier Procedure Summary Date: 11/13/24 Room / Location: [facility] Anesthesia Start: 1039 Anesthesia Stop: Procedure: DIAGNOSTIC COLONOSCOPY Diagnosis: Abdominal pain, unspecified site Scheduled Providers: Bradford Davis MD; ROB Dumont; Alexis Arango MD Responsible Provider: Alexis Arango MD Anesthesia Type: MAC ASA Status: 4 Anesthesia Post [facility] Patient Monitor: direct observation Transport: uneventful Patient condition is: stable [facility] 11-13-2024 Note Patient: Saeed lanier Procedure Information Date/Time: 11/13/24 1130 Scheduled providers: Bradford Davis MD; ROB Dumont; Alexis Arango MD Procedure: DIAGNOSTIC COLONOSCOPY Location: [facility] Relevant Problems Cardio (+) Atrial fibrillation [...] Plan discussed with CAA. Additional Equipment Requests [facility] 11-07-2024 Telephone encounter Note [employer] To Door Selling Agent office called to give update from office visit today, see CareEverywhere: Preoperative evaluation for colonoscopy and uterine D&C: She can proceed at low to intermediate cardiac risk. She can hold Eliquis 2 days prior to the procedures and resume Eliquis afterwards. Please advise [facility] 11-07-2024 Miscellaneous Notes Door To Door Selling Agent office called to give update from office visit today, see CareEverywhere: Preoperative evaluation for colonoscopy and uterine D&C: She can proceed at low to intermediate cardiac risk. She can hold Eliquis 2 days prior to the procedures and resume Eliquis afterwards. Please advise documented in this encounter [facility] 11-07-2024 Note [place] [facility] - [facility] Subjective Saeed Sarabia is a 84 y.o. year old female patient being seen for 9 mo follow up CAD, CHF, PAF, and hypertension. She needs clearance for colonoscopy scheduled 11/13/2024 at [facility] with Dr. Dvais. Patient also states she needs clearance for D&C at [facility] for uterine polyp. Denies chest pain, [...] Psychiatric: Mood and (more content not included)... [facility] 11-05-2024 Telephone encounter Note Call place to patient who was identified by name and . Reviewed/Discussed DO malka Case in detail. Pt verbalized understanding and agreed with the plan. No questions or other concerns at this time. Rehan Rashid RN [facility] 11-05-[address] to [...] that I was unable to reach her net web developer and to have them tell the net web developer to review my note and that she is going to have surgery and they will need recs. Epic wont let me message him due to him being at [place] but we can see things in care everywhere. Luciana Chavez documented in this encounter [facility] 11-05-2024 Telephone encounter Note ----- Message from Luciana Green DO sent at 11/04/2024 4:08 PM EST ----- Regarding: chad Zelaya, Can you let this patient or her know that I was unable to reach her net web developer and to have them tell the net web developer to review my note and that she is going to have surgery and they will need recs. Epic wont let me message him due to him being at [place] but we can see things in care everywhere. Luciana Chavez [facility] 11-04-2024 Note HNO ID: [id number] Author: LUCIANA GREEN DO Service: ? Author [...] OB History No obstetric history on file. 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 All questions and concerns were addressed. [...] Medical Decision Making Level: 4 - Moderate [facility] 11-04-2024 History of Present illness Narrative Saeed [...] OB History No obstetric history on file. 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 All questions and concerns were addressed. [...] 4 - Moderate documented in this encounter [facility] 10-30-2024 Telephone encounter Note Spoke with [...] recommended if clinical indicated. Gabriela Centeno MD [facility] 10-30-2024 Miscellaneous Notes Spoke with patient's [...] Gabriela Centeno MD documented in this encounter [facility] 10-30-2024 History of Present illness Narrative [...] Addressed This Visit Chronic atrial fibrillation, unspecified ([facility]) Continue eliquis therapy as b donna therapy No current symptoms, NSR today Continue w cardiology Benign essential HTN ([facility]) - Primary Please check blood pressure daily and record DASH diet Limit caffeine Take medication as directed Contact office if chest pain, pressure, dizziness, shortness of breath, swelling legs Recommend slow position changes Current meds: lisinopril, metoprolol, spironolactone Chronic diastolic (congestive) heart failure ([facility]) Continue with cardiology as well as diuretics, BONIFACIO and b donna Type 2 diabetes mellitus without complication ([facility]) Check blood sugars daily, notify if <70 [...] statin, A1c 6.1% on 08/20/2024 Other thrombophilia ([facility]) On eliquis Type 2 diabetes mellitus with diabetic neuropathy, unspecified ([facility]) Check blood sugars daily, notify if <70 [...] mellitus with diabetic peripheral angiopathy without gangrene ([facility]) Good glucose control, cont meds Abnormal ultrasound of endometrium Continue with DESK CLERK Will be having biopsy Delirium due to another medical condition Reviewed neurology notes Low MOCA score as well Alert in office, answers questions appropriately Endocervical polyp Noted on DESK CLERK exam and pelvic US Will get biopsy Endometrial polyp Seen on DESK CLERK exam and had US, will be having biopsy Vitamin B12 deficiency Started on supplement Unsure if contributing to her neuro status Associated Problem(s): Altered mental status Noted neuro notes Also had MRI brain Associated Problem(s): Other thrombophilia ([facility]) On eliquis Associated Problem(s): Vitamin B12 deficiency Started on supplement Unsure if contributing to her neuro status Associated Problem(s): Type 2 diabetes mellitus without complication ([facility]) Check blood sugars daily, notify if <70 [...] 08/20/2024 Associated Problem(s): Endometrial polyp Seen on DESK CLERK exam and had US, will be having biopsy Associated Problem(s): Endocervical polyp Noted on DESK CLERK exam and pelvic US Will get biopsy Associated Problem(s): Abnormal ultrasound of endometrium Continue with DESK CLERK Will be having biopsy Associated Problem(s): Thickened [...] answers questions appropriately documented in this encounter [facility] 10-30-2024 Instructions Galindo Miller NP - 10/30/2024 10:00 AM EST Keep fu appts Ask cardiology for refill nitroglycerin Await biopsy endometrial for next steps documented in this encounter [facility] 10-29-2024 Note HNO ID: [id number] Author: BRENDON DORSEY MD Service: ? Author Type: Physician Type: Progress Notes Filed: 10/29/2024 15:53 Note Text: [facility] New Patient Evaluation Date: October 29, 2024 Patient Name: Saeed Sarabia The [facility] was asked by to evaluate Saeed Sarabia. Our recommendations of care will be communicated by shared medical record. Reason for Evaluation/Chief complaint: memory concerns Accompanied by: SUBJECTIVE: HPI: Saeed Sarabia is a 84 year old Right handed female who presents to the [facility] for an initial evaluation. Patient has [...] on file. N (more content not included)... [facility] 10-29-2024 History of Present illness Narrative Images from the original note were not included. [facility] Outpatient Clinic New Patient Evaluation Date: October 29, 2024 Patient Name: Saeed Sarabia The [facility] was asked by to evaluate Saeed Sarabia. Our recommendations of care will be communicated by shared medical record. Reason for Evaluation/Chief complaint: memory concerns Accompanied by: SUBJECTIVE: HPI: Saeed Sarabia is a 84 year old Right handed female who presents to the [facility] for an initial evaluation. Patient has [...] loss assessment. She was recently admitted to [facility] and then at [facility] for Altered mental status. During first [...] which included preparing to see the patient, [id number] patient care, completing clinical documentation, obtaining and/or reviewing separately obtained history, performing a medically appropriate examination, counseling and educating the patient/family/caregiver, ordering medications, tests, or procedures, communicating with other HCPs (not separately reported), and independently interpreting results (not separately reported). Voice recognition software was used to compose this office note. Please excuse any unintended typographical errors. Brendon Dorsey MD Geriatric Medicine [facility] 10/29/2024 1:25 PM CC: Referring Physician: No referring provider defined for this encounter. PCP: Galindo Miller, NURSING HOME AIDE ([facility]) [address] [place] [address] Patient Entered Data: Patient-Reported No data to [...] data to display documented in this encounter [facility] 10-29-2024 Instructions Gabriela Centeno MD - [...] at any time. documented in this encounter [facility] 10-29-2024 Note HNO ID: [id number] Author: GABRIELA CENTENO MD Service: ? Author Type: Physician Type: Progress Notes Filed: 10/29/2024 20:34 Note Text: Saeed Sarabia is a 84 year old No obstetric history on file. here for SIS. Referred by: Luciana Green [id number] [id number] Chief Complaint: Thickened endometrium Endometrial Biopsy: No [...] for procedure results. Gabriela Centeno MD Ultrasound [facility] 10-29-2024 History of Present illness Narrative Saeed Sarabia is a 84 year old No obstetric history on file. here for SIS. Referred by: Luciana Green [id number] [address] Chief Complaint: Thickened endometrium Endometrial Biopsy: No [...] Centeno MD Ultrasound documented in this encounter [facility] 10-24-2024 Note HNO ID: [id number] Author: LUCIANA GREEN, DO Service: ? Author [...] OB History No obstetric history on file. 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 As applicable, any other physician, advance practice provider, medical student, or other health professional student that will be observing or involved in the sensitive examination for educational or training purposes was discussed with the Patient or Authorized International Logistics Manager. The Patient or Authorized International Logistics Manager has agreed to proceed with the sensitive [...] prior. Discussed this (more content not included)... [facility] 10-24-2024 History of Present illness Narrative Saeed [...] OB History No obstetric history on file. 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 As applicable, any other physician, advance practice provider, medical student, or other health professional student that will be observing or involved in the sensitive examination for educational or training purposes was discussed with the Patient or Authorized International Logistics Manager. The Patient or Authorized International Logistics Manager has agreed to proceed with the sensitive [...] which included preparing to see the patient, [id number] patient care, completing clinical documentation, obtaining and/or reviewing separately obtained history, and counseling and educating the patient/family/caregiver. Criminal Justice Professor offered: Patient declines. documented in this encounter [facility] 10-24-2024 Note HNO ID: [id number] Author: CARA YOUNG MA Service: ? Author Type: Major Sales Associate Type: Progress Notes Filed: 10/24/2024 15:36 Note Text: Criminal Justice Professor offered: Patient declines. [facility] 10-21-2024 Note HNO ID: [id number] Author: ROLANDA CHAPARRO APRN.CNP Service: General Internal Medicine Author Type: Nurse Practitioner Type: Progress Notes Filed: 10/30/2024 07:40 Note Text: Documentation Query Please clarify the Type of encephalopathy Dementia with Encephalopathy, please specify type metabolic This document will become part of the patient's medical record. [facility] 10-21-2024 Note HNO ID: [id number] Author: KIANNA CHAVEZ APRN.NURSING HOME AIDE Service: Gastroenterology Author Type: Nurse Practitioner Type: Plan of Care Filed: 10/21/2024 14:32 Note Text: DEPARTMENT OF GASTROENTEROLOGY AND HEPATOLOGY [facility] INPATIENT VISIT DATE AND TIME 10/21/24 2:27 [...] and re-consult as needed. SIGNATURE: Kianna Chavez APRN.NURSING HOME AIDE PAGER/CONTACT #: [phone] [facility] 10-19-2024 Note HNO ID: [id number] Author: GISSELL TAPIA MD Service: Hospital Medicine Author Type: Physician Type: Progress Notes Filed: 10/19/2024 12:12 Note Text: ROU PROGRESS NOTE SERVICE DATE: 10/19/2024 SERVICE TIME: 11:40 AM Hospital Medicine/Primary Attending: Gissell Tapia MD Subjective INTERVAL HPI: per pts -pt with hallucinations , has had hallucinations while at [place] seeing bugs crawling on the wall She has not been driving for 2.5 yrs due to the foot drop , recently failed the BMV testing for vision as she could not follow the commands Per pt has been confused since sep 17 2024 which is new for her , was admitted in [place] , had some improvement for 4-5 days [...] (POA: Yes) Patient had recent admission to [facility] on 09/17/2024 with concern for cholecystitis and [...] October 19, 2024 TIME: 11:40 AM etx [id number] [facility] 10-19-2024 Note HNO ID: [id number] Author: SUDHIR SANTOS LISW Service: Care Management Author Type: Linen Clerk Type: Care Mgt Progress Note Filed: 10/19/2024 10:19 Note Text: CARE MANAGEMENT PROGRESS NOTE SERVICE DATE: 10/19/2024 SERVICE TIME: 10:18 AM LOS: 1 day Post-Acute Discharge Planning Patient Goal(s): General wellness, Be able to go home [place] Explained: [place] Given: No Reason Not Given: [...] DATE: October 19, 2024 TIME: 10:18 AM [facility] 10-18-2024 Note HNO ID: [id number] Author: DAWIT DORMAN MD Service: Hospital Medicine [...] AND Plan: -Patient had recent admission to [facility] on 09/17/2024 with concern for cholecystitis and [...] discussed with: Pr (more content not included)... [facility] 10-18-2024 Note HNO ID: [id number] Author: HAL ALVAREZ MD Service: Neurology General [...] Neuro to sign off. Please page [place] [facility] [place] [phone] if any further questions or concerns. Hal Alvarez MD PGY-4 [facility] 10-17-2024 Note HNO ID: [id number] Author: ATUL MARTIN DO Service: General Internal Medicine Author Type: Physician Type: Plan of Care Filed: 10/17/2024 15:04 Note Text: The patient's right foot is swollen, red, hot and painful. An ultra sound of the right lower extremity was negative for DVT. Most likely developing a cellulitis of the right foot. No tinea pedis seen on exam. Initiate therapy with Ancef. [facility] 10-17-2024 Note HNO ID: [id number] Author: BRITNEY CHOUDHURY RN Service: Care Management Author Type: Registered Nurse Type: Care Mgt Initial Assessment Filed: 10/17/2024 09:26 Note Text: CARE MANAGEMENT: ASSESSMENT AND DISCHARGE PLAN SERVICE DATE: October 17, 2024 SERVICE TIME: 9:20 AM PCP: Galindo Miller CNP, LEXI Primary Contact: Extended Emergency Contact Information Primary Emergency Contact: [place] Relation: Spouse Admission Status: Observation Insurance Provider: MEDICARE A AND B Discharge Planning requested by: Per Department Practice Potential Transition Plans Home Advance Directives Current Advance Directive: Health Care Power of Gas Station Operator In Chart: No Marine Fitter Attempted to Assist with AD Completion: Yes [...] d/c needs. HCPOA paperwok on file within [employer] and verified to be current as of date/time of this note: No Legal Next of Kin Hierarchy per [place] Revised Code: Legal Spouse- Sammy Sarabia [phone] Majority of Adult Children (consensus if possible) Parents Majority of Adult Siblings (consensus if possible) Nearest Blood Relative reports patient has HCPOA forms at home. Instructed that he can bring forms in to file. SIGNATURE: Britney Choudhury RN PATIENT NAME: Saeed Sarabia DATE: October 17, 2024 TIME: 9:19 AM [facility] 10-17-2024 Note HNO ID: [id number] Author: ATUL MARTIN DO Service: General Internal Medicine Author Type: Physician Type: Progress Notes Filed: 10/17/2024 09:18 Note Text: ROU PROGRESS NOTE Name: Saeed Sarabia SERVICE DATE: 10/17/2024 SERVICE TIME: 9:01 AM Hospital Medicine/Primary Attending: Atul Martin, DO ASSESSMENT AND PLAN *Altered mental status [...] This patient was recently discharged from the [facility] where she was evaluated for RLQ [...] also a reason for her hospitalization at [facility]. Per her she seems to zone [...] DATE: October 17, 2024 TIME: 9:01 AM [facility] 10-16-2024 Note SARS-COV-2 (AGENT OF COVID-19) RNA: Not detected INFLUENZA A RNA: Not detected INFLUENZA B RNA: Not detected RESPIRATORY SYNCYTIAL VIRUS (RSV) RNA: Not detected [facility] Comment on above: Performed By: #### 9 [id number] ####[facility] LABORATORYCLIA [id number] [address] 10-16-2024 Note HNO ID: [id number] Author: BRIANA SCHWARZ PA-C Service: ? Author Type: Physician Senior Functional Analyst Type: Progress Notes Filed: 10/16/2024 12:57 Note Text: [facility] October 16, 2024 Saeed Saad Sarabia 1940 Patient presents with: Abdominal Pain: X6 wks on and off, change in mental status x3 days Was recently treated for uti getting better then abd pain and admitted to [facility] and then transferred to [place] and admitted for a week with gall [...] to ER due to the limitations of [facility] testing capabilities. The patient verbalized understanding and denies questions. Patient transported to Emergency Department by who refused transport Abd exam with lower abd pain no guarding no masses no rebound. The patient refused transfer to ER by ambulance. The patient was accompanied by and states that they feel safe to self transport. Advised of possible risks. Report called Briana Schwarz PA-C [facility] 10-16-2024 History of Present illness Narrative Images from the original note were not included. [facility] October 16, 2024 Saeed Sarabia 1940 Patient presents with: Abdominal Pain: X6 wks on and off, change in mental status x3 days Was recently treated for uti getting better then abd pain and admitted to [place] and then transferred to [place] and admitted for a week with gall [...] to ER due to the limitations of [facility] testing capabilities. The patient verbalized understanding and denies questions. Patient transported to Emergency Department by who refused transport Abd exam with lower abd pain no guarding no masses no rebound. The patient refused transfer to ER by ambulance. The patient was accompanied by and states that they feel safe to self transport. Advised of possible risks. Report called Briana Schwarz PA-C [facility] documented in this encounter [facility] 10-10-2024 History of Present illness Narrative [...] office if worsens documented in this encounter [facility] 09-30-2024 History of Present illness Narrative Associated [...] to confusion, ultimately she was evaluated in [facility] ER, had CT scan head/abd/pelvis-see report and labs and transferred to [facility] for evaluation for gallbladder w cholelithiasis [...] List Items Addressed This Visit Atrial fibrillation ([facility]) Continue eliquis therapy as b donna therapy No current symptoms Continue w cardiology Benign essential HTN ([facility]) Please check blood pressure daily and record DASH diet Limit caffeine Take medication as directed Contact office if chest pain, pressure, dizziness, shortness of breath, swelling legs Recommend slow position changes Current meds: lisinopril, metoprolol, spironolactone Unspecified diastolic (congestive) heart failure ([facility]) Continue with cardiology as well as diuretics, BONIFACIO and b donna Type 2 diabetes mellitus without complication ([facility]) Check blood sugars daily, notify if <70 [...] 2 diabetes mellitus with diabetic neuropathy, unspecified ([facility]) Check blood sugars daily, notify if <70 [...] on 08/20/2024 Acute cholecystitis Was transferred to [facility] for this, no surgery as of yet Will need to review notes Acute metabolic encephalopathy - Primary Was part of diagnosis when admitted to [facility] for gallballer resolved Thickened endometrium Noted [...] Associated Problem(s): Acute cholecystitis Was transferred to [facility] for this, no surgery as of [...] part of diagnosis when admitted to [facility] for gallballer resolved documented in this encounter [facility] 09-30-2024 Instructions Galindo Miller NP - 09/30/2024 10:30 AM EST Keep appts with GI and Cardiology I will call first week of October to see what we want to do in regards to the thickening of the uterine wall documented in this encounter [facility] 09-21-2024 Note Hospital Medicine Discharge Summary Final Discharge Diagnosis: Suprapubic abdominal pain Metabolic encephalopathy Gastric ulcers Esophagitis, LA grade A Cholelithiasis Afib HTN T2DM CHF Admission Diagnosis: Acute cholecystitis [K81.0] Cholecystitis [K81.9] Hospital course: 83yoF who was admitted from [place] to [facility] on 09/17 for concern for cholecystitis. Patient was seen at [place] ED for abdominal pain and AMS. CT head was unremarkable but CT Abd showed signs concerning for cholecystitis with the presence of cholelithiasis. She was transferred to [facility] with General Surgery evaluation. HIDA was [...] Medications These medications were sent to [facility] - [place], [place] - [address] [place] [address] [place] [address], [facility] [address] pantoprazole 40 mg EC tablet Saeed is [...] in this inte (more content not included)... [facility] 09-21-2024 Note Followed up with theodore sung and family to discuss her discharge plan. At this time they continue to decline home healthcare and SNF placement but are agreeable to following up with therapies as an outpatient . [facility] 09-21-2024 Note Physical Therapy Physical Therapy [...] chair alarm activated Assessment/Plan PT Assessment PT Assessment/SAFETY SPECIALIST Summary: pt claudia therapy well, pt could [...] ADLs and tasks. (RESOLVED) 09/19/24 10/03/24 09/21/24 [facility] 09-20-2024 Note Patient: Seaed lanier Procedure Summary Date: 09/20/24 Room / Location: [facility] Main Operating Room Anesthesia Start: 742 [...] no known notable events for this encounter. [facility] 09-20-2024 Note Occupational Therapy Occupational Therapy [...] Assessment OT Impairments Decreased ADL status OT Assessment/PREFITTER Summary Pt would benefit from continued skilled therapy to improve cognition, safety awareness, activity tolerance. OT Education/Comments Safety awareness, re-orientation, LB dressing adaptive techniques Plan Level of assist 1 assist Treatment Interventions ADL retraining;Functional transfer training;Endurance training;Patient/family training;Neuromuscular reeducation;Compensatory technique education OT Plan Skilled OT OT Frequency 1 time per day until discharge & PRN OT Discharge Recommendations USP facility placement OT - Discharge Recommendations Placed Yes Outcome Assessments 09/20/24 0938 AM-PAC 6 Clicks Putting on and taking off regular lower body clothing? 2 Bathing(Including washing,rinsing,drying)? 2 Toiletin (more content not included)... [facility] 09-20-2024 Note Gastroenterology Latrell n of [...] We will arrange for outpatient repeat EGD. [facility] 09-20-2024 Note Occupational Therapy Name: Saeed Sarabia Date of : 1940 Today's Date: 09/20/24 Pt is unable to be seen for therapy at this time secondary to patient off the floor at this time for EGD per RN . Will check back and complete therapy session as appropriate. Check No Charge Time attempted: 0840A [facility] 09-20-2024 Note Hospital Medicine Daily Progress Note - 09/20/2024 8:14 AM; Room: [address] [place] [address] Admission: 09/17/2024 7:02 PM; Length of stay: 3 days THE HOSPITALIST TEAM PREFERS TO USE [employer] CHAT FOR NON-URGENT COMMUNICATION 7AM-7PM. IF I DO NOT RESPOND WITHIN 20 MINUTES OR URGENT MATTERS, PLEASE CALL THROUGH THE [employer] CONSOLE OPERATOR TRACK. FROM 7PM-7AM, PLEASE PAGE [phone](COVR). Code Status: Full Code Barriers to Discharge: [...] FREET4 1.38 09/18/2024 No results found for: PVUSRPFR01 , IRON , TIBC , C3 , C4 , AUTUMN , CANCA , ASO , PSA , CEA , CA125 , CA199 , AFP , CA153 Imaging EGD Table formatting fr (more content not included)... [facility] 09-20-2024 Note Patient: Saeed lanier Procedure Information Date/Time: 09/20/24 0800 Scheduled providers: Shelly Ricks MD; ROB Dumont; Dania Sandoval MD Procedure: EGD Location: [facility] Main Operating Room Relevant Problems Cardio [...] Plan discussed with CAA. Additional Equipment Requests [facility] 09-19-2024 Note Patient and family a re declining home healthcare and SNF. No discharge needs at this time. [facility] 09-19-2024 Note Attestation signed by Nitin [...] accurate documentation. [facility] General Surgery DAILY PROGRESS NOTE Subjective Saeed [...] days Lab Units 09/19/24 0525 09/18/24 0720 09/17/241946 WBC AUTO 10*3/uL 10.39 6.54 7.10 HEMOGLOBIN g/dL 13.4 12.3 12.9 HEMATOCRIT % 41.3 39.1 39.0 PLATELETS AUTO 10*3/uL 333 284 301 Results from last 7 days Lab Units 09/19/24 0525 09/18/24 0720 09/17/241945 SODIUM mmol/L 137 138 136 POTASSIUM mmol/L [...] imaging Imaging: CAT Eng Wo Pharm Narrative: NAYELI ENG CLINICAL HISTORY: 83-year-old with concern for [...] purposes Ryan Rodríguez MD PGY-3 Surgery Resident [facility] 09-19-2024 Note Attestation signed by Cara Vogt PT at 09/19/2024 3:25 PM This mortgage underwriter present and provided 1:1 supervision, [...] until discharge & PRN PT Discharge Recommendations USP facility placement PT - Discharge Recommendations Placed Yes History of present illness Patient is a 83 y.o. female presenting from [facility] with c/o abdominal pain and AMS x4 days. Per facility report, [facility] did not have a surgery bed available, so pt will be getting surgery at [facility]. Pt was diagnosed with cholelithiasis and [...] 3 Help fro (more content not included)... [facility] 09-19-2024 Note [facility] Medicine Daily Progress Note - 09/19/2024 8:17 AM; Room: [facility]- Admission: 09/17/2024 7:02 PM; Length of stay: 2 days THE HOSPITALIST TEAM PREFERS TO USE Adpoints CHAT FOR NON-URGENT COMMUNICATION 7AM-7PM. IF I DO NOT RESPOND WITHIN 20 MINUTES OR URGENT MATTERS, PLEASE CALL THROUGH THE [employer] CONSOLE OPERATOR TRACK. FROM 7PM-7AM, PLEASE PAGE [phone](COVR). Code Status: Full Code Barriers to Discharge: [...] FREET4 1.38 09/18/2024 No results found for: QHOIPSEU78 , IRON , TIBC , C3 , [...] Discharge Planning Expecte (more content not included)... [facility] 09-19-2024 Note Daily Case Managemen t [...] Question: Reason for NPO: Answer: Operation/Procedure 09/18/24 165 Physician Expected Discharge Date: 09/19/2024 Discharge Delays: PT Six Click Score: 13 OT Six Click Score: 17 PT Recommendations: OT Recommendations: USP facility placement (vs return home with 24 [...] Ancillary Consults (From admission, onward) Start Ordered 09/19/24 08 Inpatient consult to Social Work Once Provider: (Not yet assigned) Question Answer Comment Is discharge planning needed? If yes, who is requesting discharge planning? Other (Comment) Care Coordination Select all services needed for the patient Other Other: PT ordered et pt refused. OT recs Home w 24 vs HHC vs SNF. Please follow for discharge planning. 09/19/24 0812 09/17/242213 Inpatient Consult to Social Work Once [...] for OT? Answer: Evaluate and treat 09/17/242216 [facility] 09-19-2024 Note Attestation signed by Nitin [...] accurate documentation. [facility] General Surgery DAILY PROGRESS NOTE Subjective No [...] imaging Imaging: CAT Eng Wo Pharm Narrative: [facility] HIDA CLINICAL [...] Salvador Alcazar MD General Surgery Resident, PGY-2 [facility] 09-18-2024 Note Physical Therapy Can cellation [...] pain medication and would like to rest. Medical Technical Writer relayed to RN, family's concern that patient [...] follow and initiate session Cara Vogt PT, [facility] Acute Rehabilitation [facility] 09-18-2024 Note Hospital Medicine Daily Progress Note - 09/18/2024 8:44 AM; Room: [facility]- Admission: 09/17/2024 7:02 PM; Length of stay: 1 days THE HOSPITALIST TEAM PREFERS TO USE Litographs FOR NON-URGENT COMMUNICATION 7AM-7PM. IF I DO NOT RESPOND WITHIN 20 MINUTES OR URGENT MATTERS, PLEASE CALL THROUGH THE [employer] CONSOLE OPERATOR TRACK. FROM 7PM-7AM, PLEASE PAGE [phone](COVR). Code Status: Full Code Barriers to Discharge: [...] , FREET4 , CORTISOL , FEV1 , DCA2XAZ , DLCO , RVSP , HDL , LDL No results found for: SOIAMPOA38 , IRON , TIBC , C3 , C4 , AUTUMN , CANCA , ASO , PSA , CEA , CA125 , CA199 , AFP , CA153 Imaging CT transfer of outside films This order has been auto-finalized and does not contain a result. Discharge Planning Expected Discharge Disposition: Home or Self Care (01) (pending PT/OT) OT Discharge Recommendations: USP facility placement (vs return home with 24 hour supervision and Home OT) Signed Kayleigh Rivera MD [facility] Medicine 09/18/2024 8:44 AM [facility] 09-18-2024 Note Occupational Therapy Occupational Therapy [...] Problem List Diagnosis Coronary arteriosclerosis Atrial fibrillation ([facility]/HCC) Diastolic heart failure ([facility]) Essential hypertension Hyperlipidemia Mitral valve regurgitation Type 2 diabetes mellitus without complication ([facility]/HCC) Constipation Foot drop, right foot Right leg weakness Spinal stenosis Acute abdominal pain Acute metabolic encephalopathy Acute cholecystitis Cholelithiasis Past Medical History: Diagnosis Date Atrial fibrillation ([facility]/HCC) CHF (congestive heart failure) ([facility]) Coronary artery disease Diabetes mellitus ([facility]) Heart valve disease Hyperlipidemia Hypertension Past Surgical [...] Level of Function Prior Function Level of [place]: Independent with ADLs and functional transfers, Independent [...] 1: To Transf (more content not included)... [facility] 09-18-2024 Note Physical Therapy Evaluation--Cancellation Patient Name: Saeed Sarabia Today's Date: 09/18/2024 Admit Date: 09/17/2024 Patient admitted w/ abdominal pain. CT scan at OSH indicated possible cholelithiasis. Patient transferred for surgical consult. Patient is currently NPO. Medical Technical Writer anticipates patient to have change in mobility status if surgery is performed. Will await surgery consult and evaluate when appropriate. History of present illness Patient is a 83 y.o. female presents from [facility] w/ c/o abdominal pain and AMS x [address] days[address] [facility] performed CT scan of abdomen that found acute vs chronic cholecystitis and cholelithiasis. Transferred to [facility] for sx. Recent UTI Past Medical History DM, HLD, HTN, gallstones, a-fib, HF, CAD, back sx, foot drop, inability to ambulate Current Diagnoses Acute cholecystitis/nephrolithiasis Cara Vogt PT, [facility] Acute Rehabilitation [facility] 09-18-2024 Note Attestation signed by Nitin [...] accurate documentation. [facility] General Surgery DAILY PROGRESS NOTE Subjective No [...] last 7 days Lab Units 09/18/24 0720 09/17/247 WBC AUTO 10*3/uL 6.54 7.10 HEMOGLOBIN g/dL [...] Alem Tatum MD General Surgery Resident, PGY-1 [facility] 09-17-2024 Note Hospital Medicine History and Physical 09/17/2024 10:18 PM THE HOSPITALIST TEAM PREFERS TO USE Adpoints CHAT FOR NON-URGENT COMMUNICATION 7AM-7PM. IF I DO NOT RESPOND WITHIN 20 MINUTES OR URGENT MATTERS, PLEASE CALL THROUGH THE [employer] CONSOLE OPERATOR TRACK. FROM 7PM-7AM, PLEASE PAGE [phone](COVR). Chief Complaint Chief Complaint Patient presents with Abdominal Pain Transferred from [facility]; will be getting surgery at [facility] Altered Mental Status History of Present Illness Saeed Sarabia is an 83 y.o. female who came from [facility] emergency room with Abdominal pain diagnosed with cholelithiasis and acute cholecystitis. Patient is also confused. Past medical history significant for; diabetes type 2, hypertension, CAD with stents, HLD, atrial fibrillation on Eliquis, history of lumbar stenosis and lower back pain, history of foot drop and inability to ambulate. Patient was transferred from ER at [facility] to [facility] for evaluation and treatment of abdominal [...] of maximal intensity. Prior to transfer from [facility] CT scan of the head was [...] with ambulation). Psychiatric/Be (more content not included)... [facility] 09-17-2024 Note Relevant Hx: CT scan completed at [facility] on 09/17/24 indicated cholecystitis and cholelithiasis Today's Plan: Discussed with Dr. Lombardi, not clear that her abdominal pain is due to acute cholecystitis as lipase, bilirubin, WBC are all WNL and physical exam findings do not correlate well with cholecystitis. Will have CT imaging of abdomen transferred from [facility] and order HIDA scan to further evaluate, as well as obtain ionized calcium, magnesium, and phosphorus labs. Recommend medicine admit and NPO status while waiting for HIDA scan. No associated orders from this encounter found during lookback period of 72 hours. [facility] 08-20-2024 History of Present illness Narrative [...] compliance problems. There is no history of CAD/CO, CVA or retinopathy. SUBJECTIVE: MEDICATIONS: Current Outpatient [...] List Items Addressed This Visit Atrial fibrillation ([facility]/HCC) Continue eliquis therapy as b donna therapy No current symptoms Relevant Orders CBC and differential Benign essential HTN ([facility]) Please check blood pressure daily and record- [...] b donna Unspecified diastolic (congestive) heart failure ([facility]) Continue with cardiology as well as diuretics, BONIFACIO and b donna Type 2 diabetes mellitus without complication ([facility]) - Primary Check blood sugars daily, notify [...] device (Completed) Basic metabolic panel Other thrombophilia ([facility]) Continue with eliquis Relevant Orders CBC and differential Peripheral vascular disease, unspecified ([facility]) Continue current meds Control of BP as well as DM Type 2 diabetes mellitus with diabetic neuropathy, unspecified ([facility]) Recommend tight blood glucose control Other Visit Diagnoses Type 2 diabetes mellitus without complications ([facility]) Relevant Medications glipiZIDE (Glucotrol) 5 MG tablet metFORMIN (Glucophage) 1000 MG tablet Other Relevant Orders POCT glycosylated hemoglobin (Hb A1C) docked device (Completed) Basic metabolic panel Associated Problem(s): Other thrombophilia ([facility]) Continue with eliquis Associated Problem(s): Type 2 [...] blood glucose control documented in this encounter [facility] 08-20-2024 Instructions Galindo Miller NP - 08/20/2024 9:20 AM EST Monitor blood pressure at home, if consistent higher than 140/90 let me know documented in this encounter [facility] 02-02-2024 Note [place] [facility] - [facility] Subjective Saeed Sarabia is a [...] the morning., Disp: (more content not included)... [facility] 09-07-2022 Miscellaneous Notes Images from the original note were not included. [facility] d/c note reviewed: Discharge summary uploaded to [employer]. documented in this encounter [facility] 08-23-2022 History of Present illness Narrative [...] 9:09 AM PAGER: documented in this encounter [facility] 08-10-2022 History of Present illness Narrative [...] for its avalibilty documented in this encounter [facility] 07-29-2022 Miscellaneous Notes Paperwork uploaded via benchee. Sent to Luis Adam for review and signature. Copies faxed to Tommie @ [phone] and onbase. Dinora Fisher RN SURGERY parole officer Calling: Fax received from [facility] Dirk Villareal PT Is Patient Requesting Appointment?: No Is Patient Calling due to Pain?: No Is Patient Requesting Medication?: No General Concerns: Physical Therapy Recertification Note to be signed and returned by fax to [phone]. Patient of: Dr. Sears documented in this encounter [facility] 06-16-2022 Miscellaneous Notes Paperwork uploaded via benchee and sent to Luis Adam for review and signature. Copies faxed to [facility] [employer] at [phone] per request and onbase. Dinora Fisher RN Form received: From (agency / facility / parent): [facility] nurseryperson (if given): none given Phone #: [phone] Fax # : [phone] Email: Information requested: Discharge Physician Orders (Devero) Patient of Dr. Sears documented in this encounter [facility] 05-26-2022 Miscellaneous Notes Forms uploaded via benchee. Sent to Dr. Sears for review and signature. Copies faxed to [facility] at number provided and onbase. Dinora Fisher RN Form received: From (agency / facility / parent): [facility] nurseryperson (if given): none given Phone #: [phone] Fax # : [phone] Email: Information requested: Physician Orders (Devero) Patient of Dr. Sears documented in this encounter [facility] 05-17-2022 History of Present illness Narrative [...] Juice Sears MD documented in this encounter [facility] 05-12-2022 Miscellaneous Notes Forms uploaded via benchee. Sent to Dr. Sears for review and signature. Copies faxed to [facility] at [phone] and onbase. Dinora Fisher RN Form received: From (agency / facility / parent): [facility] nurseryperson (if given): Phone #: [phone] Fax # : [phone] Email: Information requested: Physicians orders Patient of Dr. Sears Forwarded to nurse. documented in this encounter [facility] 05-06-2022 Miscellaneous Notes POC paperwork uploaded to benchee and sent to Dr. Sears for review and signature. Copies faxed to [facility] at [phone] and onbase. Dinora Fisher RN SURGERY parole officer Calling: [facility] Is Patient Requesting Appointment?: No Is Patient Calling due to Pain?: No Is Patient Requesting Medication?: No General Concerns: Plan of Care 04/17/22 - 06/15/22 Patient of: Dr. Sears documented in this encounter [facility] 04-29-2022 Miscellaneous Notes Spoke to Mojgan from [facility] regarding plan of care - explained that Dr. Platt will not typically follow patients for extended recovery past the post surgical period. Saeed has a follow up appointment 05/17 - will discuss at this time if her home health plan of care needs to be transitioned to a different practitioner. Forms uploaded to benchee and sent to Dr. Sears for review and signature. Copies faxed to [facility] [phone] and onbase. Dinora Fisher RN Form received: From (agency / facility / parent): [facility] nurseryperson (if given): Mojgan Phone #: [phone] Fax # : ATTN Mojgan [phone] Email: Information requested: Plan of care Patient of Dr. Sears documented in this encounter [facility] 04-22-2022 Miscellaneous Notes Forms received. Uploaded to benchee and sent to Dr. Sears for review and signature. Copies sent to [facility] at fax [phone] and onbase. Dinora Fisher RN Form received: From (agency / facility / parent): [facility] nurseryperson (if given): Saeed Sarabia Phone #: [phone] (home) Fax # : [phone] Email: Information requested: therapy evaluation and care plan Patient of Dr. sears documented in this encounter [facility] 04-20-2022 Miscellaneous Notes PT and home care orders faxed to listed contact and number below. Can fax orders to [phone] to Debbie Miller. Cris Leger RN at [facility] [phone], reports start of care for skilled nurse, [...] BLAYNE for review. Dinora Fisher RN SURGERY parole officer Calling: Debbie Miller RNwaste management engineer child care team lead [facility] direct line Is Patient Requesting Appointment?: No Is Patient Calling due to Pain?: No Is Patient Requesting Medication?: No General Concerns: Requesting orders for home health PT and nurse to check on patient in the home. Patient of: Dr. Sears documented in this encounter [facility] 04-13-2022 Progress note Note Date/Time April 13, 2022 1:52pm [facility] [address] [place] [address] Physiatry(Rehab) Progress Note Signed Patient: Saeed Sarabia MR#: [id number] : 1940 Acct:[id number] Age/Sex: 81 / F Adm Date: 2 Loc: Room: 4A6041-8 Type : ADM IN Attending Dr: Kingston [...] lumbar decompression surgery. She initially presented to [facility] ER on 03/23/2022 with complaints [...] She has had an MRI performed at [facility] with Dr. 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 She was scheduled to have a lumbar surgery, but it was cancelled. [facility] neurosurgery was consulted, as there was no neurosurg coverage at [facility] on the day of admission. [...] good Judgment: judgment good Objective <Brooklyn Swanson DATABASE REPORT WRITER - Last Filed: 04/13/22 13:52> Labs CBC [...] mg 04/07/22 15:58 Bisacodyl 10 Mg Supp.Rect NH 04/07/23 15:57 DAILY PRN Constipation Bumetanide 0.5 [...] 15:58 Docusate Enema 283 Mg/5 Ml Enema NH 04/07/23 15:57 DAILY PRN Constipation Gabapentin 100 [...] mg DAILY LAUREN Administration Assessment/Plan <Brooklyn Swanson, DATABASE REPORT WRITER - Last Filed: 04/13/22 13:52> Assessment/Plan (1) [...] equipment to enhance the patient's a functional scientology Ensure adequate nutrition and hydration Sleep: Reports no issues Pain: Reports Tylenol provides sufficient relief. Occasional neuropathic pains in the right lower leg, may increase gabapentin as needed. Discharge planning: Home with End of this week. I spent greater than 15 minutes for services, including ncpy-do-lyjh encounter with the patient, discussion of the case, plan of care, and exam; and oiqodcv-ty-blyp activities, such as reviewing pertinent plan consultant documentation, recent therapy notes, laboratory and radiology studies, and discussion of case with care team including physician, nursing, director case management, and therapists. More than 50 % of [...] chart, including current orders, allied health and plan consultant notes, labs/imaging and performed jacobs elements [...] <Electronically signed by Kingston Gao MD> 04/13/225 [facility] Work Phone: 1(159) 989-890807-06-2022 Progress note Author Kingston Gao [facility] April 13, 2022 10:22am Note Date/Time April 13, 2022 10:15 am [facility] [address] [place] [address] Physiatry(Rehab) Progress Note Signed Patient: Saeed Sarabia MR#: [id number] : 1940 Acct:[id number] Age/Sex: 81 / F Adm Date: 2 Loc: Room: 0C6119-3 Type : ADM IN Attending Dr: Kingston Gao MD Copies to: ~ Date of Service: 04/12/2022 Subjective Subjective Narrative: Ms. Sarabia is a 81 year old female with medical history of type 2 diabetes, A. fib anticoagulated with Eliquis, CAD, hypertension, hyperlipidemia presents to inpatient rehabilitation for strengthening s/p lumbar decompression surgery. She initially presented to [facility] ER on 03/23/2022 with complaints [...] She has had an MRI performed at [facility] with Dr. 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 She was scheduled to have a lumbar surgery, but it was cancelled. [facility] neurosurgery was consulted, as there was no neurosurg coverage at [facility] on the day of admission. She was accepted to [facility] and transferred non-emergently, since there was [...] in her lower extremities, we discussed teds thatrastae uses at home Discussed at team meeting [...] mg 04/07/22 15:58 Bisacodyl 10 Mg Supp.Rect NH 04/07/23 15:57 DAILY PRN Constipation Bumetanide 0.5 [...] 15:58 Docusate Enema 283 Mg/5 Ml Enema NH 04/07/23 15:57 DAILY PRN Constipation Gabapentin 100 [...] equipment to enhance the patient's a functional scientology Ensure adequate nutrition and hydration Sleep: Reports no issues Pain: Reports Tylenol provides sufficient relief. Occasional neuropathic pains in the right lower leg, may increase gabapentin as needed. Discharge planning: Home with End of this week. Documented By: Kingston Gao MD 04/12/22 1012 Signed By: <Electronically signed by Kingston Gao MD> 04/13/[address] [place] [address] Ctr Work Phone: 1(589) 886-908107-01-2022 History and physical note Author Kingston Gao [facility] April 08, 2022 1:06pm Note Date/Time April 08, 2022 10:50 am [facility] [address] [place] [address] Physiatry (Rehab) H&P Signed Patient: Saeed Sarabia MR#: [id number] : 1940 Acct:[id number] Age/Sex: 81 / F Adm Date: 2 Loc: Room: [address] [place] [address] Type : ADM IN Attending Dr: Kingston Gao MD Copies to: OMID Walker MD Lisa J Aichholz, TRAFFIC OR SYSTEM DISPATCHER-C~ <Brooklyn Swanson APRN - Last Filed: 04/08/22 [...] lumbar decompression surgery. She initially presented to [facility] ER on 03/23/2022 with complaints [...] She has had an MRI performed at [facility] with Dr. 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 She was scheduled to have a lumbar surgery, but it was cancelled. [facility] neurosurgery was consulted, as there was no neurosurg coverage at [facility] on the day of admission. She was accepted to [facility] and transferred non-emergently, since there was [...] 5 Mg Tablet) 5 mg PO BID [facility] Stop: 04/10/23 08:59 Atorvastatin Calcium (Atorvastatin 20 Mg Tablet) 20 mg PO DAILY LAUREN Stop: 04/08/23 08:59 Last Admin: 04/08/22 09:48 Dose: 20 mg Documented by: Bisacodyl (Bisacodyl 10 Mg Supp.Rect) 10 mg NH DAILY PRN PRN Reason: Constipation Stop: 04/07/23 [...] Enema 283 Mg/5 Ml Enema) 283 mg NH DAILY PRN PRN Reason: Constipation Stop: 04/07/23 15:57 Ezetimibe (Ezetimibe 10 Mg Tablet) 10 mg PO DAILY [facility] Stop: 04/08/23 08:59 Last Admin: 04/08/22 09:48 Dose: 10 mg Documented by: Gabapentin (Gabapentin 100 Mg Capsule) 100 mg PO TID LAUREN Stop: 04/07/23 21:59 Last Admin: 04/08/22 09:48 Dose: 100 mg Documented by: Glipizide (Glipizide 5 Mg Tablet) 5 mg PO BID.WITH.MEALS [facility] Stop: 04/07/23 16:59 Last Admin: 04/08/22 09:48 Dose: 5 mg Documented by: Heparin Sodium (Porcine) (Heparin 5,000 Unit/Ml Vial) 5,000 unit SUBCUT Q12HR LAUREN Stop: 04/09/22 21:01 Last Admin: 04/08/22 09:49 Dose: 5,000 unit Documented by: Lactulose (Lactulose 20 Gm/30 Ml Udc) 30 gm PO DAILY PRN PRN Reason: Constipation Stop: 04/07/23 15:57 Lidocaine (Lidocaine 4% Adh..Patch) 2 patch TOPICAL DAILY [facility] Stop: 04/08/23 08:59 Last Admin: 04/08/22 [...] 100 Mg Tab.Er.24h) 100 mg PO DAILY [facility] Stop: 04/08/23 08:59 Last Admin: 04/08/22 [...] 12.5 Mg Tablet) 12.5 mg PO DAILY [facility] Stop: 04/08/23 08:59 Last Admin: 04/08/22 09:48 Dose: 12.5 mg Documented by: Exam <Brooklyn Swanson, DATABASE REPORT WRITER - Last Filed: 04/08/22 13:03> Physical Exam [...] % (Auto) 61.2 Lymph % (Auto) 26.1 Hunt % (Auto) 9.4 Eos % (Auto) 2.7 Baso % (Auto) 0.6 Neut # (Auto) 4.7 Lymph # (Auto) 2.0 Hunt # (Auto) 0.7 Eos # (Auto) 0.2 [...] MPV Neut % (Auto) Lymph % (Auto) Hunt % (Auto) Eos % (Auto) Baso % (Auto) Neut # (Auto) Lymph # (Auto) Hunt # (Auto) Eos # (Auto) Baso # [...] 24 hour daily monitoring and intervention from Land Title Examiner as well as other consulting physicians including internal medicine as well as 24 hour daily perinatal educator nursing - for medical safe / optimal [...] equipment to enhance the patient's a functional scientology Ensure adequate nutrition and hydration Sleep: Reports no issues Pain: Reports Tylenol provides sufficient relief. Occasional neuropathic pains in the right lower leg, may increase gabapentin as needed. Discharge planning: Home with in 7 to 10 days. I spent greater than 15 minutes for services, including rmhq-rg-bwen encounter with the patient, discussion of the case, plan of care, and exam; and padruoi-ey-sdep activities, such as reviewing pertinent plan consultant documentation, recent therapy notes, laboratory and radiology studies, and discussion of case with care team including physician, nursing, director case management, and therapists. More than 50 % of [...] chart, including current orders, allied health and plan consultant notes, labs/imaging and performed jacobs elements [...] equipment to enhance the patient's a functional scientology Encourage deep breathing exercises and incentive spirometry RD evaluation Ensure adequate nutrition and hydration Discharge planning. Documented By: Brooklyn Swanson APRN 04/08/22 1 047 Signed By: <Electronically signed by Kingston Gao MD> 04/08/22 4362 [facility] Work Phone: 1(893) 516-916307-01-2022 Consult note Author Justyn Spann [facility] April 08, 2022 1:04pm Note Date/Time April 08, 2022 1:01p [facility] ENTER [address] [address] Hospitalist Consult Note Signed Patient: Saeed Sarabia MR#: [id number] : 1940 Acct:[id number] Age/Sex: 81 / F Adm Date: 2 Loc: Room: 0H8476-2 Type : ADM IN Attending Dr: Kingston Gao MD Copies to: MD Kingston Stauffer MD Lisa J Aichholz, TRAFFIC OR SYSTEM DISPATCHER-C~ HPI DATE OF CONSULTATION: 04/08/22 REQUESTING PROVIDER: Kingston Gao Consult Narrative HPI: Patient is an 81-year-old female, with known history of spinal stenosis, who underwent spinal surgical intervention at [facility]. She has presented to our facility on 05 April, complaining of severe pain in the right lower extremity, foot drop, which was attributed to her known spinal stenosis. Arrangements were made, and the patient was transferred to [facility] for surgical care. The procedure was [...] post spinal decompressive surgery for stenosis at [facility]. No complications. Further postoperative care per [...] mg 04/07/22 15:58 Bisacodyl 10 Mg Supp.Rect NH 04/07/23 15:57 DAILY PRN Constipation Bumetanide 0.5 [...] 15:58 Docusate Enema 283 Mg/5 Ml Enema NH 04/07/23 15:57 DAILY PRN Constipation Ezetimibe 10 [...] % (Auto) 61.2, Lymph % (Auto) 26.1, Hunt % (Auto) 9.4, Eos % (Auto) 2.7, Baso% (Auto) 0.6, Neut # (Auto) 4.7, Lymph # (Auto) 2.0, Hunt # (Auto) 0.7, Eos # (Auto) 0.2, Baso # (Auto) 0.0, Nucleated RBC % (auto) 0.1 04/07/22 21:44: POC Glucose 161 04/07/22 17:16: POC Glucose 110 Documented By: Justyn Spann MD 04/08/22 1257 Signed By: <Electronically signed by Justyn Spann MD> 04/08/22 1304 [facility] Work Phone: 1(992) 114-533106-19-2022 Progress note Author Kieran Scott [facility] March 27, 2022 3:10pm Note Date/Time March 27, 2022 3:10 pm [facility] ENTER [address] [place] [address] Hospitalist Progress Note Signed Patient: Saeed Sarabia MR#: [id number] : 1940 Acct:[id number] Age/Sex: 81 / F Adm Date: 2 Loc: 4N Room: 9K9049-3 Type : ADM INOo Attending Dr: Kieran [...] is still waiting to be transferred to [facility]. We still did not hear any open [...] Patient is waiting to be transferred to [facility]. We do not have any neurosurgical coverage [...] plenty RBC. We will try to use Shepherd and repeat UA for today. Admission Assessment and Plan: Lumbar spinal stenosis/right foot drop Patient continues to have weakness in the right foot with numbness MRI lumbar spine from [facility] reviewed which showed L4-L5 disc desiccation, moderate diffuse disc bulge and ligamentum flavum hypertrophy and facet osteoarthropathy, severe central canal stenosis, moderate right and mild left foraminal stenosis, L5-S1 moderate to severe disc space narrowing with endplate sclerosis Patient has been accepted by neurosurgery at [facility] and is awaiting bed Family is upset that she does not have a bed available yet at [facility] and wants to go to [facility] if possible. Spoke to neurosurgery at [facility] who would like to see the patient [...] Scott MD> 03/27/22 1510 [facility] Work Phone: [phone]) 823-794206-18-2022 Progress note Author Kieran Scott [facility] March 26, 2022 3:44pm Note Date/Time March 26, 2022 3:37 pm [facility] ENTER [address] [place] [place] [address] Hospitalist Progress Note Signed Patient: Saeed Sarabia MR#: [id number] : 1940 Acct:[id number] Age/Sex: 81 / F Adm Date: 2 Loc: 4N Room: 2E8937-9 Type : ADM INOo Attending Dr: Kieran [...] is still waiting to be transferred to [facility]. We still did not hear any open [...] Patient is waiting to be transferred to [facility]. We do not have any neurosurgical coverage [...] foot with numbness MRI lumbar spine from [facility] reviewed which showed L4-L5 disc desiccation, moderate diffuse disc bulge and ligamentum flavum hypertrophy and facet osteoarthropathy, severe central canal stenosis, moderate right and mild left foraminal stenosis, L5-S1 moderate to severe disc space narrowing with endplate sclerosis Patient has been accepted by neurosurgery at [facility] and is awaiting bed Family is upset that she does not have a bed available yet at [facility] and wants to go to [facility] if possible. Spoke to neurosurgery at [facility] who would like to see the patient [...] Scott MD> 03/26/22 1544 [facility] Work Phone: 1(210) 366-833906-17-2022 Progress note Author Rupert Anthony [facility] March 25, 2022 3:36pm Note Date/Time March 25, 2022 3:36 pm [facility] ENTER [address] [place] [address] Hospitalist Progress Note Signed Patient: Saeed Sarabia MR#: [id number] : 1940 Acct:[id number] Age/Sex: 81 / F Adm Date: 2 Loc: Room: [address] [place] [address] Type : ADM INOo Attending Dr: Rupert [...] Insuln.Pen SUBCUT 03/24/23 07:59 1 units TID.WM.HS [facility] Administration Protocol Insulin Detemir 5 units [...] Tizanidine 4 Mg Tablet PO 03/25/23 21:59 [facility] A&P - Hospitalist Assessment/Plan (1) Lumbar spinal stenosis: (2) Foot drop, right: Plan Lumbar spinal stenosis/right foot drop Patient continues to have weakness in the right foot with numbness MRI lumbar spine from [facility] reviewed which showed L4-L5 disc desiccation, moderate diffuse disc bulge and ligamentum flavum hypertrophy and facet osteoarthropathy, severe central canal stenosis, moderate right and mild left foraminal stenosis, L5-S1 moderate to severe disc space narrowing with endplate sclerosis Patient has been accepted by neurosurgery at [facility] and is awaiting bed Family is upset that she does not have a bed available yet at [facility] and wants to go to [facility] if possible. Spoke to neurosurgery at [facility] who would like to see the patient [...] Anthony MD> 03/25/22 1536 [facility] Work Phone: [phone] 308-332006-17-2022 Consult note Author Yvrose Crocker [facility] March 25, 2022 10:12am Note Date/Time March 24, 2022 9:58 am [facility] ENTER [address] [place] [address] Neurology Consult Note Signed with Addenda Patient: Saeed Sarabia MR#: [id number] : 1940 Acct:[id number] Age/Sex: 81 / F Adm Date: 2 Loc: Room: [address] [place] [address] Type : ADM INOo Attending Dr: Rupert [...] does not have a bed assignment at [facility] today we can contact [facility] or [facility] for other options. Patient and state understanding and are agreeable. Addendum Documented By: JH Crocker 03/25/22 1012 Addendum Signed By: <Electronically signed by JH Crocker> 03/25/22 1012 HPI Consult Date: 03/24/22 Home Health Specialist: BLAKE Green with Dr Astorga Reason for [...] MRI scan of her lumbar spine at [facility] recently which prompted the surgery. She [...] compared to the left CEREBELLAR EXAM: * Ukzfzw-ao-sdwp and alternating movements are intact and normal in bilateral upper extremities * Tbze-zh-fekz and alternating movements are intact and normal in the left lower extremity. She is able to do qbck-na-vtwc with the right lower extremity with some [...] Donny Wolf M.D.03/23/2022 8:03 PM Dictation Location: [place] [address] Knee X-Ray 03/23/22 19:20 IMPRESSION: Tricompartmental osteoarthritic changes are noted. There is also evidence suggesting underlying chondrocalcinosis. No acute bony injury. Impression dictated by: Donny Wolf M.D.03/23/2022 8:02 PM Dictation Location: [place] [address] Assessment/Plan (1) Lumbar spinal stenosis: Code(s): M48.061 [...] of her lumbar spinein February at the [facility] which is available for review. She was exceptedat the [facility] and we are awaiting a bed. 1. MRI of the lumbar spine from [facility] reviewed. Awaiting a bed assignment at [facility]. I will defer further work-up to [...] <Electronically signed by Colby Astorga DO> 03/24/22 3738 [facility] Work Phone: 1(580) 970-668306-16-2022 Progress note Author Rupert Anthony [facility] March 24, 2022 5:12pm Note Date/Time March 24, 2022 5:12 pm [facility] ENTER [address] [place] [place] [address] Progress Note Signed Patient: Saeed Sarabia MR#: [id number] : 1940 Acct:[id number] Age/Sex: 81 / F Adm Date: 2 Loc: Room: 2E2405-8 Type : ADM INOo Attending Dr: Rupert Anthony MD Copies to: ~ Date of Service: 03/24/2022 Progress Narrative Note PROGRESS NOTE Progress Note: Patient admitted last night for right foot drop. Patient has been accepted to [facility] by neurosurgery and is awaiting bed. Patient denies any pain in her right leg at this time. Continue current management. Neurology and neurosurgery has been consulted. Documented By: Rupert Anthony MD 03/24/221710 Signed By: <Electronically signed by Rupert Anthony MD> 03/24/221711 [facility] Work Phone: [phone]) 924-447306-16-2022 History and physical note Author Perlita Gautam [facility] March 24, 2022 4:44am Note Date/Time March 24, 2022 4:24 am [facility] ENTER [address] [place] [address] Hospitalist H&P Signed Patient: Saeed Sarabia MR#: [id number] : 1940 Acct:[id number] Age/Sex: 81 / F Adm Date: 2 Loc: Room: [address] [place] [address] Type : ADM IN Attending Dr: Perlita [...] (32.0-35.0) 03/23/22 19: RDW 13.8 % (11.9-15.3) 03/23/22: Plt Count 295 x10E3/uL (150-450) 03/23/22 19: MPV 7.8 fl (6.3-10.7) 03/23/22 19: Neut % (Auto) 49.2 % (.) 03/23/22: Lymph % (Auto) 38.7 % (.) 03/23/22: Hunt % (Auto) 9.2 % (.) 03/23/22: Eos % (Auto) 2.3 % (.) 03/23/22: Baso % (Auto) 0.6 % (.) 03/23/22: Neut # (Auto) 4.2 x10E3/uL (1.8-7.7) 03/23/22: Lymph # (Auto) 3.3 x10E3/uL (1.00-4.8) 03/23/22: Hunt # (Auto) 0.8 x10E3/uL (0.0-0.8) 03/23/22: Eos # (Auto) 0.2 x10E3/uL (0.0-0.45) 03/23/22: Baso # (Auto) 0.1 x10E3/uL (0.0-0.2) 03/23/22: Nucleated RBC % (auto) 0.0 % (0-0.5) 03/23/22: PT 15.7 Seconds (9.0-12.9) H 03/23/22:25 INR 1.4 03/23/22: APTT 32.2 Seconds (25.1-36.5) 03/23/22 19:25 PHA Creatinine Clear 46.80 03/23/22 19:25 Sodium 141 mmol/L (136-146) 03/23/22 19:25 Potassium 4.4 mmol/L (3.5-5.1) 03/23/22: Chloride 103 mmol/L (95-114) 03/23/22: Carbon Dioxide 27.4 mmol/L (22.0-30.0) 03/23/22 19:25 [...] pH 7.5 (5.0-9.0) 03/23/22 19:45 Ur Specific Ambrose 1.017 (1.001-1.030) 03/23/22 19:45 Urine Protein Negative [...] ?ER physician spoke with Dr. Suarez at [facility] neurosurgery who accepted patient and is pending bed availability. According to ER physician conversationwith Dr. Cruz there was no concerns for Julian monsalve at this point. ?MRI from [facility] pending availability, showing L4-L5 severe stenosis [...] the plan of care and confirmed the resident's/manager of internal/medical student's dictation/written note. Documented By: Sarai Singletary APRN 03/24/22 0404 Signed By: <Electronically signed by OMID Singletary> 03/24/22 0438 <Electronically signed by Perlita Braxton MD> 03/24/22 0444 [facility] Work Phone: 1(395) 409-268706-15-2022 Evaluation note* Encounter Date Diagnosis Assessment Notes Treatment Notes Treatment Clinical Notes Mar, Right foot drop (ICD-10 - M21.371) Patient was referred to the emergency room for emergency evaluation in anticipation of probably being transferred to a tertiary center. Mar, Spinal stenosis, lumbar region with neurogenic claudication (ICD-10 - M48.062) [employer] Other evaluation noteNo assessment information available [facility] Work Phone: Evaluation note* Diagnosis Onset Date Resolution Status Foot drop, right acute Lumbar spinal stenosis acute [facility] Work Phone: Evaluation note* Diagnosis Onset Date Resolution Status Foot drop, right acute Lumbar spinal stenosis acute Atrial fibrillation acute Diabetes acute Foot drop, right acute Hyperlipidemia acute Hypertension acute Impaired mobility and activities of daily living acute S/P lumbar laminectomy acute [facility] Work Phone: evaluation note* Diagnosis Spinal stenosis of lumbar region, unspecified whether neurogenic claudication present- Primary [facility] Spinal stenosis of lumbar region, unspecified whether neurogenic claudication present- Primary Right leg weakness Other musculoskeletal symptoms referable to limbs [facility] Diagnosis Acquired talipes equinovalgus of right foot- Primary Foot drop, right foot [facility] Diagnosis Foot drop, right foot- Primary [facility] Diagnosis Encounter for subsequent annual [...] of insulin (CMS/HCC) documented in this encounter [facility]* Diagnosis Encounter for subsequent annual wellness visit (AWV) in Medicare patient- Primary Benign essential HTN (CMS/HCC) Chronic atrial fibrillation (HCC) (CMS/HCC) Atrial fibrillation Type 2 diabetes mellitus without complication, without long-term current use of insulin (CMS/HCC) Mixed hyperlipidemia (CMS/HCC) Mixed hyperlipidemia Abnormal thyroid blood test Type 2 diabetes mellitus without complications (CMS/HCC) documented in [facility] encounter [facility]* [...] Coronary atherosclerosis of unspecified type of vessel, akut[place] or graft Type 2 diabetes mellitus without complications (CMS/HCC) documented in this encounter [facility]* Diagnosis Encounter for subsequent annual wellness visit (AWV) in Medicare patient- Primary Benign essential HTN (CMS/HCC) Chronic atrial fibrillation (HCC) ([facility]/HCC) Atrial fibrillation Type 2 diabetes mellitus without [...] Coronary atherosclerosis of unspecified type of vessel, [place] or graft Type 2 diabetes mellitus without complications (CMS/HCC) UTI symptoms- Primary Vaginal yeast infection Candidiasis of vulva and vagina documented in this encounter [facility]* Diagnosis Encounter for subsequent annual wellness visit (AWV) in Medicare patient- Primary Benign essential HTN (CMS/HCC) Chronic atrial fibrillation (HCC) ([facility]/HCC) Atrial fibrillation Type 2 diabetes mellitus without [...] Coronary atherosclerosis of unspecified type of vessel, [place] or graft Type 2 diabetes mellitus without complications (CMS/HCC) Hypernatremia- Primary Hyperosmolality and/or hypernatremia documented in this encounter [facility]* Diagnosis Encounter for subsequent annual [...] Coronary atherosclerosis of unspecified type of vessel, [place] or graft Type 2 diabetes mellitus without [...] perforation, or obstruction documented in this encounter [facility]* Diagnosis Encounter for subsequent annual [...] Coronary atherosclerosis of unspecified type of vessel, [place] or graft Type 2 diabetes mellitus without [...] without complications (CMS/HCC) documented in this encounter [facility]* Diagnosis Encounter for subsequent annual [...] Coronary atherosclerosis of unspecified type of vessel, [place] or graft Type 2 diabetes mellitus without [...] of other sinus [facility] Spinal stenosis- Primary Spinal stenosis, unspecified region other than cervical Atrial fibrillation, unspecified type (HCC) Diastolic heart failure, unspecified HF chronicity (HCC) Atherosclerosis of [place] coronary artery without angina pectoris, unspecified whether [place] or transplanted heart Right leg weakness Other musculoskeletal symptoms referable to limbs HLD (hyperlipidemia) Other and unspecified hyperlipidemia Foot drop, right foot Atrial fibrillation (HCC) Atrial fibrillation Benign essential HTN Essential hypertension, benign DM type 2 (diabetes mellitus, type 2) ([facility]) Type II or unspecified type diabetes mellitus without mention of complication, not stated as uncontrolled Constipation Unspecified constipation Confusion- Primary Unspecified psychosis Abdominal pain, unspecified abdominal location [facility] Atrial fibrillation, unspecified type (HCC) Diastolic heart failure, unspecified HF chronicity (HCC) Atherosclerosis of ak[place] coronary artery without angina pectoris, unspecified whether [place] or transplanted heart Right leg weakness Other [...] of genitourinary organs documented in this encounter [facility] note* Diagnosis Atrial fibrillation, unspecified type (HCC) Diastolic heart failure, unspecified HF chronicity (HCC) Atherosclerosis of [place] coronary artery without angina pectoris, unspecified whether [place] or transplanted heart Right leg weakness Other [...] Other B-complex deficiencies documented in this encounter [facility] note* Diagnosis Atrial fibrillation, unspecified type (HCC) Diastolic heart failure, unspecified HF chronicity (HCC) Atherosclerosis of [place] coronary artery without angina pectoris, unspecified whether [place] or transplanted heart Right leg weakness Other [...] of genitourinary organs [facility] Diagnosis Encounter for subsequent annual wellness visit (AWV) in Medicare patient- Primary Benign essential HTN (CMS/HCC) Chronic atrial fibrillation (HCC) ([facility]/HCC) Atrial fibrillation Type 2 diabetes mellitus without complication, without long-term current use of insulin (CMS/HCC) Mixed hyperlipidemia (CMS/HCC) Mixed hyperlipidemia Abnormal thyroid blood test Type 2 diabetes mellitus without complication, without long-term current use of insulin ([facility]/HCC)- Primary Other thrombophilia (CMS/HCC) Type 2 diabetes mellitus with diabetic neuropathy, unspecified (CMS/HCC) Peripheral vascular disease, unspecified (CMS/HCC) Peripheral vascular disease, unspecified Unspecified diastolic (congestive) heart failure (CMS/HCC) Chronic atrial fibrillation (HCC) ([facility]/HCC) Atrial fibrillation Benign essential HTN (CMS/HCC) Coronary arteriosclerosis (CMS/HCC) Coronary atherosclerosis of unspecified type of vessel, [place] or graft Type 2 diabetes mellitus without complications (CMS/HCC) Type 2 diabetes mellitus without complication, without long-term current use of insulin ([facility]/HCC)- Primary Acute metabolic encephalopathy Type 2 diabetes mellitus with diabetic neuropathy, without long-term current use of insulin (CMS/HCC) Chronic atrial fibrillation (HCC) ([facility]/HCC) Atrial fibrillation Benign essential HTN (CMS/HCC) Chronic [...] Other thrombophilia (CMS/HCC) documented in this encounter [facility]* Diagnosis Atrial fibrillation, unspecified type (HCC) Diastolic heart failure, unspecified HF chronicity (HCC) Atherosclerosis of akut[place] coronary artery without angina pectoris, unspecified whether [place] or transplanted heart Right leg weakness Other [...] well as surgical risks of DVT, PE, CO, . All questions and concerns were addressed. [...] - ELECTIVE (05/2020) [facility] Diagnosis Atrial fibrillation, unspecified type (HCC) Diastolic heart failure, unspecified HF chronicity (HCC) Atherosclerosis of ak[place] coronary artery without angina pectoris, unspecified whether [place] or transplanted heart Right leg weakness Other [...] (HCC) Atrial fibrillation 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 Other hyperlipidemia Endometrial polyp Polyp of corpus uteri * Assessment & Plan Note - Maxine Singh APRN.AIRFRAME AND POWERPLANT MECHANIC - 11/15/2024 3:46 PM EST Associated Problem(s): HLD (hyperlipidemia) Assessment: takes Vic Stewart stable * Assessment & Plan Note - Maxine Singh APRN.CNS - 11/15/2024 3:46 PM EST Associated Problem(s): DM type 2 (diabetes mellitus, type 2) ([facility]) Assessment: takes Metformin,Glipizide currently stable Glucose Date Value Ref Range Status 10/20/2024 135 (H) 74 - 99 mg/dL Final Comment: The [place] [employer] (ADA) provides guidance for cutoff [...] Standards of Medical Care in Diabetes 2016, [place] [employer]. Diabetes Care. 2016.39(Suppl 1). * Assessment & Plan Note - Maxine Singh APRN.CNS - 11/15/2024 3:45 PM EST Associated Problem(s): CAD (coronary artery disease) Assessment: had LAD stent placed 2006 followed per [employer] Dr. Roberson * Assessment & Plan Note [...] pre op,currently stable documented in this encounter [facility] note* Diagnosis Atrial fibrillation, unspecified type (HCC) Diastolic heart failure, unspecified HF chronicity (HCC) Atherosclerosis of ak[place] coronary artery without angina pectoris, unspecified whether [place] or transplanted heart Right leg weakness Other [...] (HCC) Atrial fibrillation 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 Other hyperlipidemia Pre-op evaluation Preoperative examination, unspecified Benign essential HTN Essential hypertension, benign Type 2 diabetes mellitus with other specified complication, without long-term current use of insulin (HCC) Paroxysmal atrial fibrillation (HCC) Atrial fibrillation 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 Other hyperlipidemia Endometrial polyp Polyp of corpus uteri documented in this encounter [facility] note* Diagnosis Encounter for subsequent annual wellness visit (AWV) in Medicare patient- Primary Benign essential HTN (CMS/HCC) Chronic atrial fibrillation (HCC) (CMS/HCC) Atrial fibrillation Type 2 diabetes mellitus without complication, without long-term current use of insulin (CMS/HCC) Mixed hyperlipidemia (CMS/HCC) Mixed hyperlipidemia Abnormal thyroid blood test Type 2 diabetes mellitus without complication, without long-term current use of insulin (/)- Primary Other thrombophilia (CMS/HCC) Type 2 diabetes mellitus with diabetic neuropathy, unspecified (CMS/HCC) Peripheral vascular disease, unspecified (CMS/HCC) Peripheral vascular disease, unspecified Unspecified diastolic (congestive) heart failure (CMS/HCC) Chronic atrial fibrillation (HCC) ([facility]/HCC) Atrial fibrillation Benign essential HTN (/HCC) Coronary arteriosclerosis (/) Coronary atherosclerosis of unspecified type of vessel, [place] or graft Type 2 diabetes mellitus without complications (/) Type 2 diabetes mellitus without complication, without long-term current use of insulin (/)- Primary Acute metabolic encephalopathy Type 2 diabetes mellitus with diabetic neuropathy, without long-term current use of insulin (/) Chronic atrial fibrillation (HCC) ([facility]/) Atrial fibrillation Benign essential HTN (CMS/HCC) Chronic diastolic congestive heart failure ([facility]/) Acute cholecystitis Thickened endometrium Nonspecific (abnormal) findings [...] gangrene (CMS/HCC) Chronic diastolic (congestive) heart failure (/HCC) Chronic atrial fibrillation, unspecified ([facility]/HCC) Delirium due to another medical condition Endocervical [...] perforation, or obstruction documented in this encounter [facility] HealthcareEvaluation note* Diagnosis Encounter for subsequent annual [...] heart failure (CMS/HCC) Chronic atrial fibrillation (HCC) ([facility]/HCC) Atrial fibrillation Benign essential HTN (CMS/HCC) Coronary arteriosclerosis (/HCC) Coronary atherosclerosis of unspecified type of vessel, [place] or graft Type 2 diabetes mellitus without complications (CMS/HCC) Type 2 diabetes mellitus without complication, without long-term current use of insulin (CMS/HCC)- Primary Acute metabolic encephalopathy Type 2 diabetes mellitus with diabetic neuropathy, without long-term current use of insulin (CMS/HCC) Chronic atrial fibrillation (HCC) ([facility]/HCC) Atrial fibrillation Benign essential HTN (CMS/HCC) Chronic [...] deficiency Other B-complex deficiencies Other thrombophilia (CMS/HCC) Type 2 diabetes mellitus without complication, without long-term current use of insulin (CMS/HCC)- Primary Type 2 diabetes mellitus with diabetic neuropathy, without long-term current use of insulin ([facility]/HCC) Acute gastric ulcer without hemorrhage or perforation Acute gastric ulcer without mention of hemorrhage, perforation, or obstruction Benign essential HTN (CMS/HCC) Chronic atrial fibrillation, unspecified ([facility]/HCC) Type 2 diabetes mellitus with diabetic peripheral angiopathy without gangrene, without long-term current use of insulin ([facility]/HCC) Other thrombophilia (CMS/HCC) Mixed hyperlipidemia (CMS/HCC) Mixed hyperlipidemia Lower abdominal pain Abdominal pain, other specified site Thickened endometrium Nonspecific (abnormal) findings on radiological and other examination of genitourinary organs documented in this encounter [facility] HealthcareEvaluation note* Diagnosis Atrial fibrillation, unspecified type (HCC) Diastolic heart failure, unspecified HF chronicity (HCC) Atherosclerosis of [place] coronary artery without angina pectoris, unspecified whether [place] or transplanted heart Right leg weakness Other [...] (HCC) Atrial fibrillation 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 Other hyperlipidemia Postop check- Primary Follow-up examination, following unspecified surgery documented in this encounter [facility] note* Diagnosis Atrial fibrillation, unspecified type (HCC) Diastolic heart failure, unspecified HF chronicity (HCC) Atherosclerosis of [place] coronary artery without angina pectoris, unspecified whether [place] or transplanted heart Right leg weakness Other [...] (HCC) Atrial fibrillation 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 Other hyperlipidemia Calculus of gallbladder without cholecystitis without obstruction- Primary Calculus of gallbladder without mention of cholecystitis or obstruction Unintentional weight loss Loss of [facility] Diagnosis Encounter for subsequent annual wellness [...] Coronary atherosclerosis of unspecified type of vessel, [place] or graft Type 2 diabetes mellitus without [...] Other B-complex deficiencies documented in this encounter [facility] HealthcareEvaluation note* Diagnosis Encounter for subsequent annual [...] Coronary atherosclerosis of unspecified type of vessel, [place] or graft Type 2 diabetes mellitus without [...] without long-term current use of insulin (CMS/HCC) Benign essential HTN (CMS/HCC) Chronic atrial fibrillation, [...] perforation, or obstruction [facility] Encounter for subsequent annual wellness visit (AWV) in Medicare patient- Primary Benign essential HTN Chronic atrial fibrillation (HCC) Atrial fibrillation Type 2 diabetes mellitus without complication, without long-term current use of insulin (HCC) Mixed hyperlipidemia Mixed hyperlipidemia Abnormal thyroid blood test Type 2 diabetes mellitus without complication, without long-term current use of insulin (HCC)- Primary Other thrombophilia ([facility]HS-HCC) Type 2 diabetes mellitus with diabetic neuropathy, unspecified (HCC) Peripheral vascular disease, unspecified Unspecified diastolic (congestive) heart failure (HCC) Chronic atrial fibrillation (HCC) Atrial fibrillation Benign essential HTN Coronary arteriosclerosis Coronary atherosclerosis of unspecified type of vessel, [place] or graft Type 2 diabetes mellitus without [...] History blood clot Hospitalization History See Above [employer] Other reason for referral (narrative)* Outpatient Procedure (Routine) - Authorized Specialty Diagnoses / Procedures Referred By Oscar macias Referred To Contact [facility] Diagnoses Thickened endometrium Procedures ENDOMETRIAL BIOPSY ENDOMETRIAL BX W/WO ENDOCERVIX BX W/[place] [address] [address] [address] [place] [address] Referral ID Status Reason Start Date Expiration Date Visits Requested Visits Authorized [id number] Authorized Auto-Generat ed Referral 10/24/2024 10/24/2025 1 1 * Diagnostic Procedure Only (Routine) - Authorized Specialty Diagnoses / Procedures Referred By Oscar macias Referred To Contact [facility] Diagnoses Thickened endometrium Procedures SONOHYSTEROGRAPHY (SIS) US WHI SALINE INFUS SONOHYSTEROGRAPHY W/[place] [address] [address] [place] [address] [place] [address] Referral ID Status Reason Start Date Expiration Date Visits Requested Visits Authorized [id number] Authorized Auto-Generat ed Referral 10/24/2024 10/24/2025 1 1 [facility] Chief Complaint and Reason for Visit Chief [...] Documents on File Type Date Recorded Patient International Logistics Manager Expl anation Advance Directive(s) 03/29/2022 8:42 PM [...] Stauffer DO Emergency Provider Active Galindo J [facility] Primary Care Provider Active Perlita Braxton MD Admit Provider, Attending Kamari mooney Active Team Status: Active Member Role Status Dates Galindo J [facility] Primary Care Provider Active Team Status: Inactive Member Role Status Dates Howard Stauffer DO Emergency Provider Active Galindo J [facility] Primary Care Provider Active Perlita Braxton MD Admit Provider Active Colby Astorga DO Other Provider Active Rupert Anthony MD Attending Provider Active Team Status: Inactive Member Role Status Dates Galindo J [facility] Primary Care Provider Active Kingston Gao [...] MD Other Provider Active Galindo Lorenz , DATABASE REPORT WRITER Other Provider Active Shelby Landrum , DO Other Provider Active Kieran Scott MD Other Provider Active Jayesh Clark DO Other Provider Active Justyn Spann MD [...] MD Other Provider Active Debbie Avalos , TRAFFIC OR SYSTEM DISPATCHER-C Other Provider Active Saulo Dukes MD Other [...] Active Galindo Miller Primary Care Provider Active Car Cleaner Relationship Specialty Start Date End Date Mike Steiner MD PCP - General Family Medicine 08/09/23 Galindo Miller NP [address] [place] [address] Nurse Practitioner Family Medicine 08/09/23 Car Cleaner Relationship Specialty Start Date End Date Mike Steiner MD PCP - General Family Medicine 08/09/23 Galindo Miller NP [address] [place] [address] Nurse Practitioner Family Medicine 08/09/23 Car Cleaner Relationship Specialty Start Date End Date Mike Steiner MD [address] [place] [address] PCP - General Family Medicine 08/20/24 Galindo Miller NP [address] [place] [address] Nurse Practitioner Family Medicine 08/09/23 Car Cleaner Relationship Specialty Start Date End Date Mike Steiner MD [address] [place] [address] PCP - General Family Medicine 08/20/24 Galindo Miller NP [address] [place] [address] Nurse Practitioner Family Medicine 08/09/23 Car Cleaner Relationship Specialty Start Date End Date Mike Steiner MD [address] [place] [address] PCP - General Family Medicine 08/20/24 Galindo Miller NP [address] [place] [address] Nurse Practitioner Family Medicine 08/09/23 Car Cleaner Relationship Specialty Start Date End Date Mike Steiner MD [address] [place] [address] PCP - General Family Medicine 08/20/24 Galindo Miller NP [address] [place] [address] Nurse Practitioner Family Medicine 08/09/23 Car Cleaner Relationship Specialty Start Date End Date Mike Steiner MD [address] [place] [address] PCP - General Family Medicine 08/20/24 Galindo Miller NP [address] [place] [address] Nurse Practitioner Family Medicine 08/09/23 Car Cleaner Relationship Specialty Start Date End Date Mike Steiner MD [address] [place] [address] PCP - General Family Medicine 08/20/24 Galindo Miller NP [address] [place] [address] Nurse Practitioner Family Medicine 08/09/23 Car Cleaner Relationship Specialty Start Date End Date Mike Steiner MD [address] [place] [address] PCP - General Family Medicine 08/20/24 Galidno Miller NP [address] [place] [address] Nurse Practitioner Family Medicine 08/09/23 Car Cleaner Relationship Specialty Start Date End Date Mike Steiner MD [address] [place] [address] PCP - General Family Medicine 08/20/24 Galindo Miller NP [address] [place] [address] Nurse Practitioner Family Medicine 08/09/23 Car Cleaner Relationship Specialty Start Date End Date Mike Steiner MD [address] [place] [address] PCP - General Family Medicine 08/20/24 Galindo Miller NP [address] [place] [address] Nurse Practitioner Family Medicine 08/09/23 Car Cleaner Relationship Specialty Start Date End Date Galindo Miller, NURSING HOME AIDE [address] [place] [address] PCP - General Family Medicine 10/16/24 Car Cleaner Relationship Specialty Start Date End Date Mike Steiner MD [address] [place] [address] PCP - General Family Medicine 08/20/24 Glaindo Miller TRAFFIC OR SYSTEM DISPATCHER [address] [place] [address] Nurse Practitioner Family Medicine 08/09/23 Car Cleaner Relationship Specialty Start Date End Date Galindo Miller, NURSING HOME AIDE [address] [place] [address] PCP - General Family Medicine 10/16/24 Car Cleaner Relationship Specialty Start Date End Date Galindo Miller, NURSING HOME AIDE [address] [place] [address] PCP - General Family Medicine 10/16/24 Car Cleaner Relationship Specialty Start Date End Date Galindo Miller CNP [address] [place] [address] PCP - General Family Medicine 10/16/24 Car Cleaner Relationship Specialty Start Date End Date Mike Steiner MD [address] [place] [address] PCP - General Family Medicine 08/20/24 Galindo Miller NP [address] [place] [address] Nurse Practitioner Family Medicine 08/09/23 Car Cleaner Relationship Specialty Start Date End Date Mike Steiner MD [address] [place] [address] PCP - General Family Medicine 08/20/24 Galindo Miller TRAFFIC OR SYSTEM DISPATCHER [address] [place] [address] Nurse Practitioner Family Medicine 08/09/23 Car Cleaner Relationship Specialty Start Date End Date Mike Steiner MD [address] [place] [address] PCP - General Family Medicine 08/20/24 Galindo Miller NP [address] [place] [address] Nurse Practitioner Family Medicine 08/09/23 Car Cleaner Relationship Specialty Start Date End Date Galindo Miller CNP [address] [place] [address] PCP - General Family Medicine 10/16/24 Car Cleaner Relationship Specialty Start Date End Date Galindo Miller CNP [address] [place] [address] PCP - General Family Medicine 10/16/24 Car Cleaner Relationship Specialty Start Date End Date Galindo Miller CNP [address] [place] [address] PCP - General Family Medicine 10/16/24 Car Cleaner Relationship Specialty Start Date End Date Galindo Miller CNP [address] [place] [address] PCP - General Family Medicine 10/16/24 Car Cleaner Relationship Specialty Start Date End Date Galindo Miller CNP [address] [place] [address] PCP - General Family Medicine 10/16/24 Car Cleaner Relationship Specialty Start Date End Date Galindo Miller CNP [address] [place] [address] PCP - General Family Medicine 10/16/24 Car Cleaner Relationship Specialty Start Date End Date Galindo Miller CNP [address] [place] [address] PCP - General Family Medicine 10/16/24 Car Cleaner Relationship Specialty Start Date End Date Mike Steiner MD [address] [place] [address] PCP - General Family Medicine 08/20/24 Galindo Miller NP [address] [place] [address] Nurse Practitioner Family Medicine 08/09/23 Car Cleaner Relationship Specialty Start Date End Date Mike Steiner MD [address] [place] [address] PCP - General Family Medicine 08/20/24 Galindo Miller NP [address] [place] [address] Nurse Practitioner Family Medicine 08/09/23 Car Cleaner Relationship Specialty Start Date End Date Galindo Miller, NURSING HOME AIDE [address] [place] [address] PCP - General Family Medicine 10/16/24 Car Cleaner Relationship Specialty Start Date End Date Galindo Miller, NURSING HOME AIDE [address] [place] [address] PCP - General Family Medicine 10/16/24 Car Cleaner Relationship Specialty Start Date End Date Mike Steiner MD [address] [place] [address] PCP - General Family Medicine 08/20/24 Galindo Miller NP [address] [place] [address] Nurse Practitioner Family Medicine 08/09/23 Car Cleaner Relationship Specialty Start Date End Date Galindo Miller CNP [address] [place] [address] PCP - General Family Medicine 10/16/24 Car Cleaner Relationship Specialty Start Date End Date Mike Steiner MD [address] [place] [address] PCP - General Family Medicine 08/20/24 Galindo Miller NP [address] [place] [address] Nurse Practitioner Family Medicine 08/09/23 Car Cleaner Relationship Specialty Start Date End Date Mike Steiner MD [address] [place] [address] PCP - General Family Medicine 08/20/24 Galindo Miller TRAFFIC OR SYSTEM DISPATCHER [address] [place] [address] Nurse Practitioner Family Medicine 08/09/23 Car Cleaner Relationship Specialty Start Date End Date Mike Steiner MD [address] [place] [address] PCP - General Family Medicine 08/20/24 Galindo Miller NP [address] [place] [address] Nurse Practitioner Family Medicine 08/09/23 Car Cleaner Relationship Specialty Start Date End Date Mike Steiner MD [address] [place] [address] PCP - General Family Medicine 08/20/24 Galindo Miller NP [address] [place] [address] Nurse Practitioner Family Medicine 08/09/23 Car Cleaner Relationship Specialty Start Date End Date Mike Steiner MD [address] [place] [address] PCP - General Family Medicine 08/20/24 Galindo Miller NP [address] [place] [address] Nurse Practitioner Family Medicine 08/09/23 Goals (unrecognized section and content) Goals may be documented in a n alternate sectionGoals may be documented in an alternate sectionGoals may be documented in an alternate sectionNo Information REASON FOR VISIT (unrecogniz ed section and content) Reason Comments Other home health orders r equested Reason Comments Forms [facility] Reason Comments Forms Reason Comments Other [facility] Plan of Ca re 04/17/22 - 06/15/22 Reason Comments General [facility] Reason Comments Post-Op Visit Reason Comments Forms Physician Orders (De irvin) - [facility] Reason Comments Forms Other Discharge Physician Orders Reason Comments Other Physical Therapy Rec ertification Note Reason Comments Received Outside Medical Records [facility] Reason Comments Med Refill Reason Comments [...] Referred By Contac t Referred To Contact [facility] Diagnoses Thickened endometrium Procedures SONOHYSTEROGRAPHY (SIS) US WHI SALINE INFUS SONOHYSTEROGRAPHY W/[place] [address] [place] [address] [facility] [address] [place] [address] Referral ID Status Reason Start Date Expiration Date V isits Requested Visits Authorized [id number] Closed Auto-Generate d Referral 10/24/2024 10/24/2025 1 [...] section and content) DATE CREATED AUTHOR 04/06/2022 [facility] DATE CREATED AUTHOR AUTHOR'S ORGANIZ ATION 09/15/2022 [facility] DATE CREATED AUTHOR AUTHOR'S ORGANIZ ATION 11/12/2022 [facility] DATE CREATED AUTHOR AUTHOR'S ORGANIZ ATION 11/19/2024 [facility] DATE CREATED AUTHOR AUTHOR'S ORGANIZ ATION 12/10/2024 [facility] DATE CREATED AUTHOR AUTHOR'S ORGANIZ ATION 01/19/2025 [facility] DATE CREATED AUTHOR AUTHOR'S ORGANIZ ATION 05/24/2025 [facility] d[facility]ists [employer] Source Comments (unrecognize d section and content) In the event this informatio n is protected by the Federal Confidentiality of Alcohol and Drug Abuse Patient Records regulations: The Federal rules restrict any use of the information to criminally investigate or prosecute any alcohol or drug abuse patient.[facility] the event this information is protected by the Federal Confidentiality of Alcohol and Drug Abuse Patient Records regulations: The Federal rules restrict any use of the information to criminally investigate or prosecute any alcohol or drug abuse patient.[facility] HealthIn the event this information is protected by the Federal Confidentiality of Alcohol and Drug Abuse Patient Records regulations: The Federal rules restrict any use of the information to criminally investigate or prosecute any alcohol or drug abuse patient.[facility] HealthIn the event this information is protected by the Federal Confidentiality of Alcohol and Drug Abuse Patient Records regulations: The Federal rules restrict any use of the information to criminally investigate or prosecute any alcohol or drug abuse patient.[facility] HealthIn the event this information is protected by the Federal Confidentiality of Alcohol and Drug Abuse Patient Records regulations: The Federal rules restrict any use of the information to criminally investigate or prosecute any alcohol or drug abuse patient.[facility] HealthIn the event this information is protected by the Federal Confidentiality of Alcohol and Drug Abuse Patient Records regulations: The Federal rules restrict any use of the information to criminally investigate or prosecute any alcohol or drug abuse patient.[facility] HealthIn the event this information is protected by the Federal Confidentiality of Alcohol and Drug Abuse Patient Records regulations: The Federal rules restrict any use of the information to criminally investigate or prosecute any alcohol or drug abuse patient.[facility] HealthIn the event this information is protected by the Federal Confidentiality of Alcohol and Drug Abuse Patient Records regulations: The Federal rules restrict any use of the information to criminally investigate or prosecute any alcohol or drug abuse patient.[facility] HealthIn the event this information is protected by the Federal Confidentiality of Alcohol and Drug Abuse Patient Records regulations: The Federal rules restrict any use of the information to criminally investigate or prosecute any alcohol or drug abuse patient.[facility] HealthIn the event this information is protected by the Federal Confidentiality of Alcohol and Drug Abuse Patient Records regulations: The Federal rules restrict any use of the information to criminally investigate or prosecute any alcohol or drug abuse patient.[facility] HealthIn the event this information is protected by the Federal Confidentiality of Alcohol and Drug Abuse Patient Records regulations: The Federal rules restrict any use of the information to criminally investigate or prosecute any alcohol or drug abuse patient.[facility] HealthIn the event this information is protected by the Federal Confidentiality of Alcohol and Drug Abuse Patient Records regulations: The Federal rules restrict any use of the information to criminally investigate or prosecute any alcohol or drug abuse patient.[facility] HealthIn the event this information is protected by the Federal Confidentiality of Alcohol and Drug Abuse Patient Records regulations: The Federal rules restrict any use of the information to criminally investigate or prosecute any alcohol or drug abuse patient.[facility] HealthIn the event this information is protected by the Federal Confidentiality of Alcohol and Drug Abuse Patient Records regulations: The Federal rules restrict any use of the information to criminally investigate or prosecute any alcohol or drug abuse patient.[facility] HealthIn the event this information is protected by the Federal Confidentiality of Alcohol and Drug Abuse Patient Records regulations: The Federal rules restrict any use of the information to criminally investigate or prosecute any alcohol or drug abuse patient.[facility] HealthIn the event this information is protected by the Federal Confidentiality of Alcohol and Drug Abuse Patient Records regulations: The Federal rules restrict any use of the information to criminally investigate or prosecute any alcohol or drug abuse patient.[facility] HealthIn the event this information is protected by the Federal Confidentiality of Alcohol and Drug Abuse Patient Records regulations: The Federal rules restrict any use of the information to criminally investigate or prosecute any alcohol or drug abuse patient.[facility] HealthIn the event this information is protected by the Federal Confidentiality of Alcohol and Drug Abuse Patient Records regulations: The Federal rules restrict any use of the information to criminally investigate or prosecute any alcohol or drug abuse patient.[facility] HealthIn the event this information is protected by the Federal Confidentiality of Alcohol and Drug Abuse Patient Records regulations: The Federal rules restrict any use of the information to criminally investigate or prosecute any alcohol or drug abuse patient.[facility] HealthIn the event this information is protected by the Federal Confidentiality of Alcohol and Drug Abuse Patient Records regulations: The Federal rules restrict any use of the information to criminally investigate or prosecute any alcohol or drug abuse patient.[facility] HealthIn the event this information is protected by the Federal Confidentiality of Alcohol and Drug Abuse Patient Records regulations: The Federal rules restrict any use of the information to criminally investigate or prosecute any alcohol or drug abuse patient.[facility] HealthIn the event this information is protected by the Federal Confidentiality of Alcohol and Drug Abuse Patient Records regulations: The Federal rules restrict any use of the information to criminally investigate or prosecute any alcohol or drug abuse patient.[facility] HealthIn the event this information is protected by the Federal Confidentiality of Alcohol and Drug Abuse Patient Records regulations: The Federal rules restrict any use of the information to criminally investigate or prosecute any alcohol or drug abuse patient.[facility] HealthIn the event this information is protected by the Federal Confidentiality of Alcohol and Drug Abuse Patient Records regulations: The Federal rules restrict any use of the information to criminally investigate or prosecute any alcohol or drug abuse patient.[facility] HealthIn the event this information is protected by the Federal Confidentiality of Alcohol and Drug Abuse Patient Records regulations: The Federal rules restrict any use of the information to criminally investigate or prosecute any alcohol or drug abuse patient.[facility] HealthIn the event this information is protected by the Federal Confidentiality of Alcohol and Drug Abuse Patient Records regulations: The Federal rules restrict any use of the information to criminally investigate or prosecute any alcohol or drug abuse patient.[facility] HealthIn the event this information is protected by the Federal Confidentiality of Alcohol and Drug Abuse Patient Records regulations: The Federal rules restrict any use of the information to criminally investigate or prosecute any alcohol or drug abuse patient.[facility] FOR RECORDS PERTAINING TO PATIENTS WHO [...] BE BASED ON THE PRIMARY CLINICAL RECORDS. [facility] [employer] [facility]. provides no warranty or guarantee of the accuracy or completeness of information in this document.
--- NOTE | 2025-06-29 18:15 | XR_ITS ---
The [address] [address] Patient Name: SAEED JOHNSON MRN: [id number] date: 1940 Sex: F Assigned Patient Location: ER Current Patient Location: ER Accession/Order Number: [id number] Exam Date: 06/29/2025 18:44 Report Date: 06/29/2025 18:54 At the request of: EDIS PECK Procedure: XR chest 1V AP chest CLINICAL HISTORY: Abdominal pain, N/V COMPARISON: 09/17/2024 Borderline cardiomediastinal silhouette. No focal opacity effusion or pneumothorax. XR/XR chest 1V IMPRESSION: Negative acute pleural-parenchymal disease Impression dictated by: Jamin Barnhart M.D. 06/29/2025 6:54 PM Dictation Location: [place] [address] Electronically authenticated by: [id number] Y Date: 06/29/2025 18:54
--- NOTE | 2025-06-29 18:15 | ECG_ITS ---
The [facility] Test Date: 2025-06-29 Pat Name: SAEED JOHNSON Department: Room: - Gender: Female Sqe: : 1940 Requested By: [id number] Order Number: [id number] Reading MD: MONI KELLY M.D. Measurements Intervals Vista Rate: 60 P: 90 WY: 136 QRS: -6 QRSD: 142 T: 63 QT: 486 QTc: 487 Interpretive Statements 1100 Sinus rhythm 1570 with occasional ventricular premature complexes 2550 Left bundle branch block 9150 abnormal ECG Compared to ECG 09/17/2024 11:11:07 Ventricular premature complex(es) now present Electronically Signed On 06-30-2025 7:09:23 EDT by MONI KELLY M.D.
--- NOTE | 2025-06-29 18:18 | ED.GENADUL1 ---
Documented by User: LIV Puente 06/29/25 20:00 HPI HPI - General Adult General Chief complaint: Abdominal Pain Stated complaint: Nausea/Vomiting/Diarrhea Time Seen by Provider: 06/29/25 18:09 Source: patient Mode of arrival: Wheelchair History of Present Illness HPI narrative: Patient is an 84-year-old female presents to the ER with her daughter for evaluation of nausea vomiting and diarrhea. Symptoms started abruptly around 930 this morning. Patient states she has vomited twice, the daughter states she has vomited multiple times with multiple loose watery stools. They deny any known ill exposures. She attended a wedding last night and felt well and this morning even ate pancakes before symptoms started. She denies any chest pain or shortness of breath. She is complaining of abdominal cramping that is mild to moderate. She states she cannot take anything narcotic as it causes her to vomit. She denies any blood or mucus in her stools. She did have a large cyst taken off of her uterus last year but denies any other abdominal surgeries to her knowledge. Patient appears in no distress but admits she is nervous about having an accident with frequency of symptoms. Onset (ago): hour(s) (10) Location: Reports abdomen Severity: moderate Relieving factors: Reports rest Exacerbating factors: Reports eating Related Data Home Medications ?Medication ?Instructions ?Recorded ?Confirmed apixaban 5 mg tablet (Eliquis) 5 mg PO BID 09/17/24 06/29/25 ezetimibe 10 mg tablet 10 mg PO DAILY 09/17/24 06/29/25 glipizide 5 mg tablet 5 mg PO BID 09/17/24 06/29/25 lisinopril 20 mg tablet 20 mg PO DAILY 09/17/24 06/29/25 metformin 1,000 mg tablet 1,000 mg PO BID 09/17/24 04/19/25 metoprolol succinate 100 mg 100 mg PO DAILY 09/17/24 06/29/25 tablet,extended release 24 hr rosuvastatin 5 mg tablet 5 mg PO BEDTIME 09/17/24 06/29/25 spironolactone 25 mg tablet 12.5 mg PO DAILY 09/17/24 06/29/25 pantoprazole 40 mg tablet,delayed 40 mg PO BID 10/15/24 06/29/25 release Previous Rx's ?Medication ?Instructions ?Recorded acetaminophen 650 mg 650 mg PO Q8H PRN pain #20 tabs 04/19/25 tablet,extended release (Tylenol Arthritis Pain) cephalexin 500 mg capsule 500 mg PO BID 7 days #14 caps 06/29/25 ondansetron 4 mg disintegrating 4 mg PO Q6H PRN nausea and 06/29/25 tablet vomiting #20 tabs tamsulosin 0.4 mg capsule (Flomax) 0.4 mg PO DAILY #10 caps 06/29/25 Allergies Allergy/AdvReac Type Severity Reaction Status Date / Time morphine AdvReac Nausea Verified 04/19/25 08:34 Opioid HPI Opioid Management Most Recent Opioid Data: Last Pain Scale 6 Today, 19:50 Last MAR Pain Assessment Today, 19:50 Review of Systems ROS Constitutional Denies: fever or chills Eyes Denies: change in vision Ears, nose, mouth, and throat Denies: throat pain, neck pain or throat swelling Cardiovascular Denies: chest pain, palpitations or edema Respiratory Denies: shortness of breath or cough Gastrointestinal Reports: abdominal pain, nausea, vomiting and diarrhea; Denies: coffee grounds in vomit or constipation Genitourinary Denies: painful urination Musculoskeletal Denies: back pain, neck pain or extremity pain Integumentary/Breast Denies: rash Neurological Denies: headache or numbness in extremities Psychiatric Denies: anxiety PFSH PFSH Social History Little interest or pleasure in doing things: not at all Feeling down, depressed, or hopeless: not at all Exam Narrative Exam Narrative: Nurses notes and vital signs reviewed and patient is not hypoxic. General: The patient appears well and in no apparent distress, dry emesis basin at the bedside.. Patient is resting comfortably on cart. Skin: Warm, dry, no pallor noted. Evidence of rash no facial petechia. Head: Normocephalic, atraumatic Neck: Supple, trachea mid-line, no tenderness, no lymphadenopathy Eye: Pupils are equal, round and reactive to light, EOMI Ears, Nose, Mouth, and Throat: External inspection unremarkable oral mucosa is moist, no posterior oropharynx erythema or hypertrophy, uvula is mid-line Cardiovascular: Regular Rate and Rhythm Respiratory: Patient is in no distress, no accessory muscle use, lungs are clear to auscultation, no wheezing, rales or rhonchi. Chest Wall: no tenderness Back: non-tender, no CVA tenderness Musculoskeletal: normal ROM, no tenderness, drop foot splint right ankle/ foot GI: Normal bowel sounds, tenderness to deep palpation, pt complaint of feeling sore. no masses appreciated. No rebound, guarding, or rigidity noted. Neurological: A&O x4 Psychiatric: Cooperative Constitutional Vital Signs, click to edit/add: Last Vital Signs Temp 98 F 06/29/25 17:58 Pulse 62 06/29/25 17:58 Resp 20 06/29/25 17:58 BP 160/65 H 06/29/25 18:01 Pulse Ox 99 06/29/25 18:00 Course Vital Signs Vital signs: Vital Signs Temperature 98 F 06/29/25 17:58 Pulse Rate 62 06/29/25 17:58 Respiratory Rate 20 06/29/25 17:58 Pulse Oximetry 99 06/29/25 17:58 Temperature 98 F 06/29/25 17:58 Pulse Rate 62 06/29/25 17:58 Respiratory Rate 20 06/29/25 17:58 Blood Pressure 160/65 H 06/29/25 18:01 Pulse Oximetry 99 06/29/25 18:00 Medical Decision Making MDM Narrative Medical decision making narrative: Daughter states she became concerned when patient complained of some lightheaded and dizziness with standing mostly concerned about dehydration. Patient has pain that is tolerable declines any pain medications. States she typically only takes Tylenol as needed. Patient reevaluated after returning from CT. She notes she was initially feeling better with nausea medicine but after being moved for the CT some nausea is returning. We discussed her abdominal cramping which is somewhat intermittent and she is agreeable to oral Tylenol and will try Levsin. We are initially going to try IM Bentyl but decided to hold pending CT study. Patient worried about side effects. Has elevated lactic fever and her kidney function favors likely dehydration given multiple bouts of vomiting and diarrhea. Patient received 1 L IV fluids and a second liter will be started pending some p.o. intake. Pt reports feeling better after 2nd zofran. no vomiting or diarrhea yet doing her stay. pt aware CT read is still pending. 20:00. Lab Data Labs: Lab Results 06/29/25 06/29/25 06/29/25 Range/Units 18:20 21:32 22:07 WBC 10.7 (4.0-11.0) 10^3/uL RBC 4.34 (4.20-5.40) 10^6/uL Hgb 13.1 (12.0-16.0) g/dL Hct 41.0 (36.0-48.0) % MCV 94.5 (81.0-99.0) fL MCH 30.2 (26.7-34.0) pg MCHC 32.0 (29.9-35.2) g/dL RDW 13.2 (11.0-15.0) % Plt Count 281 (150-450) 10^3/uL MPV 10.0 (9.5-13.5) fL Neut % (Auto) 83.2 H (43.0-75.0) % Lymph % (Auto) 12.2 L (20.5-60.0) % Boone % (Auto) 3.9 (1.7-12.0) % Eos % (Auto) 0.1 L (0.9-7.0) % Baso % (Auto) 0.2 (0.2-2.0) % Neut # (Auto) 8.9 H (1.4-6.5) 10^3/uL Lymph # (Auto) 1.3 (1.2-3.8) 10^3/uL Boone # (Auto) 0.4 (0.3-0.8) 10^3/uL Eos # (Auto) 0.0 (0.0-0.7) 10^3/uL Baso # (Auto) 0.0 (0.0-0.1) 10^3/uL Abs Immat Gran (auto) 0.04 H (0.00-0.03) 10^3/uL Imm/Tot Granulo (auto) 0.4 (0.0-0.5) % Sodium 143 (136-145) mmol/L Potassium 4.8 (3.5-5.1) mmol/L Chloride 105 (98-107) mmol/L Carbon Dioxide 27.0 (21.0-32.0) mmol/L Anion Gap 15.8 BUN 25.0 H (7.0-18.0) mg/dL Creatinine 1.16 H (0.55-1.02) mg/dL Est GFR ( Amer) 54 L (>=60 mL/min/1.73m^2) Est GFR (Non-Af Amer) 45 L (>=60 mL/min/1.73m^2) BUN/Creatinine Ratio 21.6 Glucose 189 H (74-106) mg/dL Lactate 3.0 H* 2.3 H* (0.4-2.0) mmol/L Calcium 9.7 (8.5-10.1) mg/dL Total Bilirubin 0.6 (0.2-1.0) mg/dL AST 15 (15-37) U/L ALT 18 (14-59) U/L Alkaline Phosphatase 61 (46-116) U/L Troponin I High Sens 6.8 (4.0-51.3) pg/mL Total Protein 7.4 (6.4-8.2) g/dL Albumin 3.6 (3.4-5.0) g/dL Globulin 3.8 g/dL Albumin/Globulin Ratio 0.9 Lipase 34.0 (16.0-77.0) U/L Urine Color Lt. yellow (YELLOW) Urine Clarity Clear (CLEAR) Urine pH 5.5 (5.0-9.0) Ur Specific Geary 1.015 (1.005-1.025) Urine Protein Negative (NEG/TRACE) mg/dL Urine Glucose (UA) Negative (NEGATIVE) mg/dL Urine Ketones 15 A (NEGATIVE) mg/dL Urine Occult Blood Large A (NEGATIVE) Urine Nitrite Negative (NEGATIVE) Urine Bilirubin Negative (NEGATIVE) Urine Urobilinogen 0.2 (0.2-1.0) EU/dL Ur Leukocyte Esterase Negative (NEGATIVE) Urine RBC 10-20 A (0-2) #/HPF Urine WBC None seen (NONE SEEN) #/HPF Ur Squamous Epith Cells Rare (NONE/RARE) #/LPF Ur Transition Epith Cell Rare A (NONE SEEN) #/LPF Urine Crystals None seen (None Seen) #/HPF Urine Bacteria None seen (NONE SEEN) #/HPF Urine Casts None seen (NONE SEEN) #/LPF Urine Mucus None seen (NONE SEEN) Ur Culture Indicated? No POC Glucose 167 H (74-106) mg/dL Imaging Data cxr, ct abd/pelvis: Radiologist's impression: ITS Impressions Chest X-Ray 06/29/25 18:15 IMPRESSION: Negative acute pleural-parenchymal disease Impression dictated by: Jamin Barnhart M.D. 06/29/2025 6:54 PM Dictation Location: [place] [address] Electronically authenticated by: [id number] Y Date: 06/29/2025 18:54 ECG Data Attestation: I personally reviewed and interpreted this ECG as follows: Interpretation: EKG interpretation: Emergency Department physician interpretation, normal sinus rhythm 60 bpm, occasional pvc no ST segment elevation, normal axis. Discharge Plan Discharge Chief Complaint: Abdominal Pain Clinical Impression: Calculus of ureterovesical junction (UVJ), Hydroureter, Hydronephrosis Patient Disposition: Home, Self-Care Time of Disposition Decision: 22:17 Prescriptions / Home Meds: New tamsulosin [Flomax] 0.4 mg capsule 0.4 mg PO DAILY Qty: 10 0RF cephalexin 500 mg capsule 500 mg PO BID 7 Days Qty: 14 0RF ondansetron 4 mg tablet,disintegrating 4 mg PO Q6H PRN (Reason: nausea and vomiting) Qty: 20 0RF No Action Eliquis 5 mg tablet 5 mg PO BID ezetimibe 10 mg tablet 10 mg PO DAILY glipizide 5 mg tablet 5 mg PO BID lisinopril 20 mg tablet 20 mg PO DAILY metformin 1,000 mg tablet 1,000 mg PO BID metoprolol succinate 100 mg tablet extended release 24 hr 100 mg PO DAILY rosuvastatin 5 mg tablet 5 mg PO BEDTIME spironolactone 25 mg tablet 12.5 mg PO DAILY acetaminophen [Tylenol Arthritis Pain] 650 mg tablet extended release 650 mg PO Q8H PRN (Reason: pain) Qty: 20 0RF pantoprazole 40 mg tablet,delayed release (DR/EC) 40 mg PO BID Rx Instructions: take before morning and evening meal Print Language: Nauruan Instructions: Hydronephrosis (ED), Ureteral Stones (ED) Referrals: Seth Main MD [Physician, Urology] - As soon as possible Documented by User: Neno Noble 06/29/25 22:56 HPI HPI - General Adult General Chief complaint: Abdominal Pain Stated complaint: Nausea/Vomiting/Diarrhea Time Seen by Provider: 06/29/25 18:09 Related Data Home Medications ?Medication ?Instructions ?Recorded ?Confirmed apixaban 5 mg tablet (Eliquis) 5 mg PO BID 09/17/24 06/29/25 ezetimibe 10 mg tablet 10 mg PO DAILY 09/17/24 06/29/25 glipizide 5 mg tablet 5 mg PO BID 09/17/24 06/29/25 lisinopril 20 mg tablet 20 mg PO DAILY 09/17/24 06/29/25 metformin 1,000 mg tablet 1,000 mg PO BID 09/17/24 04/19/25 metoprolol succinate 100 mg 100 mg PO DAILY 09/17/24 06/29/25 tablet,extended release 24 hr rosuvastatin 5 mg tablet 5 mg PO BEDTIME 09/17/24 06/29/25 spironolactone 25 mg tablet 12.5 mg PO DAILY 09/17/24 06/29/25 pantoprazole 40 mg tablet,delayed 40 mg PO BID 10/15/24 06/29/25 release Previous Rx's ?Medication ?Instructions ?Recorded acetaminophen 650 mg 650 mg PO Q8H PRN pain #20 tabs 04/19/25 tablet,extended release (Tylenol Arthritis Pain) cephalexin 500 mg capsule 500 mg PO BID 7 days #14 caps 06/29/25 ondansetron 4 mg disintegrating 4 mg PO Q6H PRN nausea and 06/29/25 tablet vomiting #20 tabs tamsulosin 0.4 mg capsule (Flomax) 0.4 mg PO DAILY #10 caps 06/29/25 Allergies Allergy/AdvReac Type Severity Reaction Status Date / Time morphine AdvReac Nausea Verified 04/19/25 08:34 Opioid HPI Opioid Management Most Recent Opioid Data: Last Pain Scale 6 Today, 19:50 Last MAR Pain Assessment Today, 19:50 PFSH PFSH Social History Little interest or pleasure in doing things: not at all Feeling down, depressed, or hopeless: not at all Exam Constitutional Vital Signs, click to edit/add: Last Vital Signs Temp 98 F 06/29/25 17:58 Pulse 62 06/29/25 17:58 Resp 20 06/29/25 17:58 BP 160/65 H 06/29/25 18:01 Pulse Ox 99 06/29/25 18:00 Course Vital Signs Vital signs: Vital Signs Temperature 98 F 06/29/25 17:58 Pulse Rate 62 06/29/25 17:58 Respiratory Rate 20 06/29/25 17:58 Pulse Oximetry 99 06/29/25 17:58 Temperature 98 F 06/29/25 17:58 Pulse Rate 62 06/29/25 17:58 Respiratory Rate 06/29/25 17:58 Blood Pressure 160/65 H 06/29/25 18:01 Pulse Oximetry 99 06/29/25 18:00 Medical Decision Making MDM Narrative Medical decision making narrative: Daughter states she became concerned when patient complained of some lightheaded and dizziness with standing mostly concerned about dehydration. Patient has pain that is tolerable declines any pain medications. States she typically only takes Tylenol as needed. Patient reevaluated after returning from CT. She notes she was initially feeling better with nausea medicine but after being moved for the CT some nausea is returning. We discussed her abdominal cramping which is somewhat intermittent and she is agreeable to oral Tylenol and will try Levsin. We are initially going to try IM Bentyl but decided to hold pending CT study. Patient worried about side effects. Has elevated lactic fever and her kidney function favors likely dehydration given multiple bouts of vomiting and diarrhea. Patient received 1 L IV fluids and a second liter will be started pending some p.o. intake. Pt reports feeling better after 2nd zofran. no vomiting or diarrhea yet doing her stay. pt aware CT read is still pending. 20:00. The patient was signed out to me at 8 PM by the physician assistant film editor. Please review his portion of the chart for his findings and impression. Patient was feeling better after ED treatment. CT scan of the abdomen pelvis revealed a right UVJ stone with some mild hydroureter and hydronephrosis. Urinalysis shows blood but no infection. Lactic acid was elevated and decreased after receiving IV fluids. Normal white blood cell count. No fever. Negative urinalysis. No other signs of infection on the CT scan. Patient received IV Rocephin and then was discharged home with prescriptions for oral dissolvable Zofran, Flomax, cephalexin 500 mg twice daily for 1 week to treat any potential infection that might result from this UVJ stone. She was also given a single dose of oral dissolvable Zofran to take home with her in case she developed nausea before tomorrow morning, when the pharmacies open. She was given referral information for local urology group. I talked to the patient and her daughter about reasons to return to the emergency department. Clinical impression -right UVJ stone, mild right hydronephrosis, mild right hydroureter. Medical Records Medical records reviewed: Yes I reviewed the patient's medical records Lab Data Lab results reviewed: Yes I reviewed the patient's lab results Labs: Lab Results 06/29/25 06/29/25 06/29/25 Range/Units 18:20 21:32 22:07 WBC 10.7 (4.0-11.0) 10^3/uL RBC 4.34 (4.20-5.40) 10^6/uL Hgb 13.1 (12.0-16.0) g/dL Hct 41.0 (36.0-48.0) % MCV 94.5 (81.0-99.0) fL MCH 30.2 (26.7-34.0) pg MCHC 32.0 (29.9-35.2) g/dL RDW 13.2 (11.0-15.0) % Plt Count 281 (150-450) 10^3/uL MPV 10.0 (9.5-13.5) fL Neut % (Auto) 83.2 H (43.0-75.0) % Lymph % (Auto) 12.2 L (20.5-60.0) % Boone % (Auto) 3.9 (1.7-12.0) % Eos % (Auto) 0.1 L (0.9-7.0) % Baso % (Auto) 0.2 (0.2-2.0) % Neut # (Auto) 8.9 H (1.4-6.5) 10^3/uL Lymph # (Auto) 1.3 (1.2-3.8) 10^3/uL Boone # (Auto) 0.4 (0.3-0.8) 10^3/uL Eos # (Auto) 0.0 (0.0-0.7) 10^3/uL Baso # (Auto) 0.0 (0.0-0.1) 10^3/uL Abs Immat Gran (auto) 0.04 H (0.00-0.03) 10^3/uL Imm/Tot Granulo (auto) 0.4 (0.0-0.5) % Sodium 143 (136-145) mmol/L Potassium 4.8 (3.5-5.1) mmol/L Chloride 105 (98-107) mmol/L Carbon Dioxide 27.0 (21.0-32.0) mmol/L Anion Gap 15.8 BUN 25.0 H (7.0-18.0) mg/dL Creatinine 1.16 H (0.55-1.02) mg/dL Est GFR ( Amer) 54 L (>=60 mL/min/1.73m^2) Est GFR (Non-Af Amer) 45 L (>=60 mL/min/1.73m^2) BUN/Creatinine Ratio 21.6 Glucose 189 H (74-106) mg/dL Lactate 3.0 H* 2.3 H* (0.4-2.0) mmol/L Calcium 9.7 (8.5-10.1) mg/dL Total Bilirubin 0.6 (0.2-1.0) mg/dL AST 15 (15-37) U/L ALT 18 (14-59) U/L Alkaline Phosphatase 61 (46-116) U/L Troponin I High Sens 6.8 (4.0-51.3) pg/mL Total Protein 7.4 (6.4-8.2) g/dL Albumin 3.6 (3.4-5.0) g/dL Globulin 3.8 g/dL Albumin/Globulin Ratio 0.9 Lipase 34.0 (16.0-77.0) U/L Urine Color Lt. yellow (YELLOW) Urine Clarity Clear (CLEAR) Urine pH 5.5 (5.0-9.0) Ur Specific Geary 1.015 (1.005-1.025) Urine Protein Negative (NEG/TRACE) mg/dL Urine Glucose (UA) Negative (NEGATIVE) mg/dL Urine Ketones 15 A (NEGATIVE) mg/dL Urine Occult Blood Large A (NEGATIVE) Urine Nitrite Negative (NEGATIVE) Urine Bilirubin Negative (NEGATIVE) Urine Urobilinogen 0.2 (0.2-1.0) EU/dL Ur Leukocyte Esterase Negative (NEGATIVE) Urine RBC 10-20 A (0-2) #/HPF Urine WBC None seen (NONE SEEN) #/HPF Ur Squamous Epith Cells Rare (NONE/RARE) #/LPF Ur Transition Epith Cell Rare A (NONE SEEN) #/LPF Urine Crystals None seen (None Seen) #/HPF Urine Bacteria None seen (NONE SEEN) #/HPF Urine Casts None seen (NONE SEEN) #/LPF Urine Mucus None seen (NONE SEEN) Ur Culture Indicated? No POC Glucose 167 H (74-106) mg/dL Imaging Data cxr, ct abd/pelvis: My impression: Radiologist interpretation of CT scan - lung bases are clear. No pleural effusion. Liver normal. Numerous gallstones. Pancreas spleen normal. Adrenals normal. Mild left renal volume loss. Probable left lower pole calyceal stones. Early excretion of contrast could appear similar. Right UVJ stone, 4 mm. Mild right hydronephrosis and hydroureter as a result. Additional multiple right lower pole 3 mm stones. Stomach small bowel normal. Appendix normal. Atherosclerosis. Uterus normal. Diverticulosis sigmoid. Diffuse degenerative change spine. Radiologist's impression: ITS Impressions Chest X-Ray 06/29/25 18:15 IMPRESSION: Negative acute pleural-parenchymal disease Impression dictated by: Jamin Barnhart M.D. 06/29/2025 6:54 PM Dictation Location: [place] [address] Electronically authenticated by: [id number] Y Date: 06/29/2025 18:54 Discharge Plan Discharge Chief Complaint: Abdominal Pain Clinical Impression: Calculus of ureterovesical junction (UVJ), Hydroureter, Hydronephrosis Patient Disposition: Home, Self-Care Time of Disposition Decision: 22:17 Prescriptions / Home Meds: New tamsulosin [Flomax] 0.4 mg capsule 0.4 mg PO DAILY Qty: 10 0RF cephalexin 500 mg capsule 500 mg PO BID 7 Days Qty: 14 0RF ondansetron 4 mg tablet,disintegrating 4 mg PO Q6H PRN (Reason: nausea and vomiting) Qty: 20 0RF No Action Eliquis 5 mg tablet 5 mg PO BID ezetimibe 10 mg tablet 10 mg PO DAILY glipizide 5 mg tablet 5 mg PO BID lisinopril 20 mg tablet 20 mg PO DAILY metformin 1,000 mg tablet 1,000 mg PO BID metoprolol succinate 100 mg tablet extended release 24 hr 100 mg PO DAILY rosuvastatin 5 mg tablet 5 mg PO BEDTIME spironolactone 25 mg tablet 12.5 mg PO DAILY acetaminophen [Tylenol Arthritis Pain] 650 mg tablet extended release 650 mg PO Q8H PRN (Reason: pain) Qty: 20 0RF pantoprazole 40 mg tablet,delayed release (DR/EC) 40 mg PO BID Rx Instructions: take before morning and evening meal Print Language: Nauruan Instructions: Hydronephrosis (ED), Ureteral Stones (ED) Referrals: Seth Main MD [Physician, Urology] - As soon as possible
[2025-06-29 18:32] LABS: Hematocrit 41.0 % (36.0-48.0); Hemoglobin 13.1 g/dL (12.0-16.0); Immature Granulocytes Abs Auto 0.04 10^3/uL (0.00-0.03); Immature Granulocytes Pct Auto 0.4 % (0.0-0.5); Lymphocytes Absolute Auto 1.3 10^3/uL (1.2-3.8); Mean Corpuscular HGB Conc 32.0 g/dL (29.9-35.2); Mean Corpuscular Hemoglobin 30.2 pg (26.7-34.0); Mean Corpuscular Volume 94.5 fL (81.0-99.0); Platelet Count 281 10^3/uL (150-450); Red Blood Count 4.34 10^6/uL (4.20-5.40); White Blood Count 10.7 10^3/uL (4.0-11.0)
[2025-06-29] MEDS: 0.9 % SODIUM CHLORIDE 1,000 ML 999 ML IV ×2 (18:32→19:53)
[2025-06-29 18:52] LABS: Alanine Aminotransferase 18 U/L (14-59); Albumin Globulin Ratio 0.9; Albumin Level 3.6 g/dL (3.4-5.0); Alkaline Phosphatase 61 U/L (46-116); Anion Gap 15.8; Aspartate Amino Transferase 15 U/L (15-37); Blood Urea Nitrogen 25.0 mg/dL (7.0-18.0); Calcium 9.7 mg/dL (8.5-10.1); Carbon Dioxide 27.0 mmol/L (21.0-32.0); Chloride 105 mmol/L (98-107); Estimated GFR (African America 54 (>=60 mL/min/1.73m^2); Estimated GFR (Non-African Ame 45 (>=60 mL/min/1.73m^2); Globulin 3.8 g/dL; Glucose 189 mg/dL (74-106); Lipase 34.0 U/L (16.0-77.0); Potassium 4.8 mmol/L (3.5-5.1); Sodium 143 mmol/L (136-145); Total Protein 7.4 g/dL (6.4-8.2)
[2025-06-29 19:04] LABS: Lactate/Lactic Acid 3.0 mmol/L (0.4-2.0)
--- NOTE | 2025-06-29 19:20 | PC.NURSE ---
pt back from imaging at this time via stretcher. aware of pending result.
[2025-06-29] MEDS: ACETAMINOPHEN 500 MG TABLET 1000 MG PO (19:50)
[2025-06-29] MEDS: HYOSCYAMINE SULFATE 0.125 MG TAB.SUBL SL (19:50)
--- NOTE | 2025-06-29 20:37 | PC.NURSE ---
pt provided with warm blanket per request. pt and family member aware of pending imaging result at this time. pt denies further needs at this time.
[2025-06-29 21:55] LABS: Lactate/Lactic Acid 2.3 mmol/L (0.4-2.0)
[2025-06-29 22:14] LABS: Glucose Urine UA NEGATIVE (NEGATIVE)
[2025-06-29 22:26] LABS: Cast Seen? NONE SEEN #/LPF (NONE SEEN); Crystals Seen? None Seen #/HPF (None Seen); Urine Culture Indicated NO
[2025-06-29] MEDS: ONDANSETRON 4 MG RAPDIS TABLET SL (23:13)
[2025-06-29 23:28] VITALS: BP 145/81; PULSE 81; O2SAT 98
== END 2025-06-29 23:30 | disposition home or self-care (01) ==
PROVIDERS: Personal Emergency Response Attendant; Emergency Provider Emergency Medicine; PCP Nurse Practitioner
DX: N13.2 Hydronephrosis with renal and ureteral calculous obstruction (principal); R11.2 Nausea with vomiting, unspecified; R10.9 Unspecified abdominal pain; R19.7 Diarrhea, unspecified
CPT/HCPCS: 36415; 71045; 74177; 80053; 81001; 83605; 83690; 84484; 85025; 93005; 96361; 96365; 96375; 96376; 99285; J0696; J2405; Q0162; Q9967

== ENCOUNTER 2025-07-02 12:47 | Outpatient (OUT) | payer MEDICARE, SELFPAY ==
--- NOTE | 2025-07-02 12:59 | XR_ITS ---
The [address] [address] Patient Name: SAEED JOHNSON MRN: [id number] date: 1940 Sex: F Assigned Patient Location: [facility] Current Patient Location: [facility] Accession/Order Number: [id number] Exam Date: 07/02/2025 13:06 Report Date: 07/02/2025 16:50 At the request of: NEGRA HERRERA NP Procedure: XR abdomen 1V XR abdomen 1V 07/02/2025 1:10 PM SIGNS AND SYMPTOMS: ^Kidney Stones PROTOCOL: Frontal radiograph of the abdomen and pelvis COMPARISON: 06/29/2025 FINDINGS: No radiodense renal stones are visualized. Vascular calcifications are noted in the abdominal aorta and within the pelvis. The previously visualized distal right ureteral stone is not well visualized within the pelvis. There is a dextro convex curvature of the lumbar spine with degenerative changes in the thoracolumbar spine, hips, and sacroiliac joints. XR/XR abdomen 1V IMPRESSION: No radiodense renal stones are visualized. Vascular calcifications are noted in the abdominal aorta and within the pelvis. The previously visualized distal right ureteral stone is not well visualized within the pelvis. Impression dictated by: Donny Wolf M.D. 07/02/2025 4:50 PM Dictation Location: [place] [address] Electronically authenticated by: [id number] Y Date: 07/02/2025 16:50
--- OUTSIDE RECORDS SUMMARY | 2025-07-02 13:01 | XMS_ITS | CCD ---
Author Organization [facility] Care Team Providers Care Accounting Advisory Services Manager Name Role Phone MD Atul Vera Attending Provider NON STAFF Primary Care Provider UnavailDO Howard Lennon Emergency Provider [phone] Galindo Miller Primary Care Provider MD Perlita Davis Admit Provider Al MD Perlita Pennington Attending Provider [phone] DO Colby Astorga Other Provider MD Rupert Anthony Attending Provider [phone] Atul Vera Unavailable MARGARETTE LINCOLN Attending Unavailable [...] Chahal Other Provider OMID Lorenz Other Provider [phone] DO Shelby Landrum Other Provider [phone] MD Kieran Scott Other Provider [phone] DO Jayesh Clark Other Provider MD Justyn [...] Other Provider MD Dwight Kelley Other Provider RONNIE Avalos-C Debbie Pleitez Other Provider [phone] MD [...] Other Provider DO Cm Zarco Other Provider [phone] MD Rik Davis Other Provider ELFEGO Hudson Other Provider Unavailable Unavailable Primary Care Provider MD Will Graceel P Attending Provider [phone] Galindo Miller Primary Care Provider [phone] Unavailable Primary Care Provider Unavailowen e Unavailable Primary Care Provider Unavailowen e AICHHOLZ, HOSPICE EXECUTIVE DIRECTOR GALINDO Primary Care Unavailable DR SHEILA INIGUEZ V Consulting Unavailable AICHHOLZ, HOSPICE EXECUTIVE DIRECTOR GALINDO Admitting Unavailable AICHHOLZ, HOSPICE EXECUTIVE DIRECTOR GALINDO Attending Unavailable AICHHOLZ, HOSPICE EXECUTIVE DIRECTOR GALINDO Consulting Unavailable AICHHOLZ, HOSPICE EXECUTIVE DIRECTOR GALINDO Primary Care Unavailable AICHHOLZ, HOSPICE EXECUTIVE DIRECTOR GALINDO Admitting Unavailable AICHHOLZ, HOSPICE EXECUTIVE DIRECTOR GALINDO Attending Unavailable AICHHOLZ, HOSPICE EXECUTIVE DIRECTOR GALINDO Consulting Unavailable AICHHOLZ, HOSPICE EXECUTIVE DIRECTOR GALINDO Primary Care Unavailable AICHHOLZ, HOSPICE EXECUTIVE DIRECTOR GALINDO Admitting Unavailable AICHHOLZ, HOSPICE EXECUTIVE DIRECTOR GALINDO Attending Unavailable AICHHOLZ, HOSPICE EXECUTIVE DIRECTOR GALINDO Primary Care Unavailable MISC, DOCTOR Attending Unavailable MISC, DOCTOR Admitting Unavailable AICHHOLZ, HOSPICE EXECUTIVE DIRECTOR GALINDO Primary Care Unavailable AICHHOLZ, HOSPICE EXECUTIVE DIRECTOR GALINDO Admitting Unavailable AICHHOLZ, HOSPICE EXECUTIVE DIRECTOR GALINDO Attending Unavailable AICHHOLZ, HOSPICE EXECUTIVE DIRECTOR GALINDO Consulting Unavailable AICHHOLZ, HOSPICE EXECUTIVE DIRECTOR GALINDO Primary Care Unavailable DR SHEILA INIGUEZ V Consulting Unavailable AICHHOLZ, HOSPICE EXECUTIVE DIRECTOR GALINDO Admitting Unavailable AICHHOLZ, HOSPICE EXECUTIVE DIRECTOR GALINDO Attending Unavailable AICHHOLZ, HOSPICE EXECUTIVE DIRECTOR GALINDO Consulting Unavailable Atul Vera Admitting Unavailable NON STAFF Primary Care Unavailable Atul Vera Attending Unavailable NON STAFF Primary Care Unavailable Atul Vera Admitting Unavailable Atul Vera Attending Unavailable Aichholz, Galindo J Primary Care [...] Consulting Unavailable Cyndee Aguirre Consulting Unavailable TirsoShadi K Consulting Unavailable DialGalindo meza M Consulting Unavailable Shelby Landrum Consulting Unavailable Kieran Scott Consulting Unavailable Jayesh Clark Consulting UnavailJustyn Sanches Consulting Unavailable Mayra Saha Consulting Unavailable Selma Barkley Consulting Unavailable Liztete Pickard Consulting Unavailable oPli Collins Consulting Unavailable Andrea Muñoz Consulting Unavailable Jay Barrientos Consulting Unavailable Annelise Vila Consulting Unavailable Nitin Patel Consulting Unavailable Abilio Shafer Consulting Unavailable Gladys Cash Consulting Unavailable Dwight Kelley Consulting Unavailable Debbie Avalos Consulting Unavailable Saulo Dukes Consulting Unavailab Abel Foley Consulting Unavailable Jesu Mcmanus Consulting Unavailable Moon, Ann-Marie Consulting Unavailable Rupert Anthony Consulting Unavailable Sandeep Morel Consulting Jacquelin Letty Gómez Consulting Unavailable Perlita Davis Consulting Unavailab Jr Almeida Consulting Unavailable Adis Rouse Consulting Unavailable ObSarai gray Consulting Unavailable Cm Zarco Consulting Unavailable Daromar Obaydah M Consulting Unavailable Lexie Hudson Consulting Unavailable Galindo Miller Primary Care Unavailable Atul Vera Attending Unavailable Atul Vera Admitting Unavailable Obdulia ABARCA, Mike Primary Care Provider Paul RN TRANSITION, Galindo Unavailable Mike Steiner MD Primary Care Provider [phone] Paul HOSPICE EXECUTIVE DIRECTOR, Galindo Vitale Primary Care Provider [phone] JOSE ROBERSON Attending Unavailable ANNELISE PIERCE Referring Unavailable RITIKA, MIRRA Referring Unavailable SANDOVAL, DANIA Referring Unavailable SHELLY RICKS Attending Unavailable KAYLEIGH RIVERA Referring Unavailable BRADFORD DAVIS Admitting Unavailable BRADFORD DAVIS Attending Unavailable NITIN ROBERTS Referring Unavailable ANNELISE PIERCE Referring Unavailable JOSE ROBERSON Attending Unavailable DOMINIQUE, EDMUNDO Referring Unavailable RODNEY, BONAVENTURE Admitting Unavailable COLLEEN RIVERAEB T Attending Unavailable GALINDO MILLER Primary Care Unavailable [...] GALINDO Attending Unavailable AICHHOLZ, GALINDO Attending Unavailable CARI LEBLANC Attending Unavail able Allergies Allergy Classification Reported Allergen(s) Allergy Type Date of Onset Reaction(s) Facility (20 sources) Morphine; Translations: [MORPHINE] Drug Allergy 4 GI intolerance, Nausea Only, GI Upset [facility] Work Phone: Medications Current Medications Medication [...] PO Q4H 11 07April 14, 2022 3:08pm amoxicillin 500 mg oral [...] above: Take 1 capsule by mo [facility] twice daily. fluconazole 150 mg oral tablet [...] 12:00am take 1 capsule by mo [facility] every twenty-four hours Gabapentin 100 MG 1 capsule Orally Once a day Active Comment on above: Take 100 mg by mouth three times daily. glipiZIDE 5 mg oral tablet (20 sources) Sulfonylurea Start: 4 End: 5 take 1 tablet [...] 14, 2022 12:00am take 4 tablets by [facility] once daily lisinopril (ZESTRIL, PRINIVIL) 5 mg [...] Coronary arteriosclerosis; Translations: [Atherosclerotic heart disease of [place] coronary artery without angina pectoris] Onset: 11-17-2021 [...] MG Breast - bilateral Screen ingon 05-28-2025 [place] [address] Mammography Report Signed Patient: SAEED SARABIA MR#: [id number] : 1940 Acct:[id number] Age/Sex: 84 / F ADM Date: 05/28/25 Loc: MAMMO Attending Dr: Galindo Miller NP Ordering Physician: Galindo Miller NP Results: Date of Service: 05/28/25 Follow Up: Procedure(s): MM screening mammo BI Accession Number(s): [id number] cc: Galindo Miller NP Patient Name: SAEED SARABIA MR#: [id number] : 1940 Exam Date: 05/28/2025 Ordering Doctor: LEXI MILLER HOSPICE EXECUTIVE DIRECTOR RADIOLOGY REPORT PROCEDURE: MM SCREENING MAMMO BI [...] breast cancer at age 89. LOCATION: [facility] BREAST COMPOSITION: The breasts are almost entirely [...] Signed By: 05/28/25 1429 DD/ 1429 TD/TT: Supervisor Prop Making: [facility] Radiology, Radiologist, MD - 05/28/2025 [place] [address] Mammography Report Signed Patient: SAEED SARABIA MR#: [id number] : 1940 Acct:[id number] Age/Sex: 84 / F ADM Date: 05/28/25 Loc: MAMMO Attending Dr: Galindo Miller NP Ordering Physician: Galindo Miller NP Results: Date of Service: 05/28/25 Follow Up: Procedure(s): MM screening mammo BI Accession Number(s): [id number] cc: Galindo Miller NP Patient Name: SAEED SARABIA MR#: [id number] : 1940 Exam Date: 05/28/2025 Ordering Doctor: [...] breast cancer at age 89. LOCATION: [facility] BREAST COMPOSITION: The breasts are almost entirely [...] Dictated By: Jamin Barnhart M.D. Signed By: 05/28/251428 DD/ 28 TD/TT: Supervisor Prop Making: [facility] Radiology Study observation (narrative) [facility] MG Breast - bilateral Screen ingOrdered By: Radiologist Radiology on 05-28-2025 [facility] Work Phone: ALL CBC WITH AUTO DIFFon BASOPHILS ABSOLUTE AUTO 0 N [facility] Basophils/100 WBC (Bld) 0.4 % 0.2 - 2.0 % [facility] Eosinophils/100 WBC (Bld) 3.7 % 0.9 - 7.0 % [facility] Erythrocyte distribution width (RBC) [Ratio] 13 % 11.0 - 15.0 % [facility] Hematocrit (Bld) [Volume fraction] 41.9 % 36.0 - 48.0 % [facility] Hemoglobin (Bld) [Mass/Vol] 13 g/dL 12.0 - 16.0 g/dL [facility] IMMATURE GRANULOCYTES ABS AUTO 0.01 [facility] Immature granulocytes/100 WBC (Bld) 0.1 % 0.0 - 0.5 % [facility] Interpretation and review of laboratory results Abnormal [facility] LYMPHOCYTES ABSOLUTE AUTO 3.7 [facility] Lymphocytes/100 WBC (Bld) 47.2 % 20.5 - 60.0 % [facility] MCH (RBC) [Entitic mass] 30.4 pg 26. 7 - 34.0 pg [facility] MCHC (RBC) [Mass/Vol] 31 g/dL 29.9 - 35.2 g/dL [facility] MCV (RBC) [Entitic vol] 98.1 fL 81.0 - 99.0 fL [facility] MONOCYTES ABSOLUTE AUTO 0.6 N [facility] Monocytes/100 WBC (Bld) 8.3 % 1.7 - 12.0 % [facility] NEUTROPHILS ABSOLUTE AUTO 3.1 [facility] Neutrophils/100 WBC (Bld) 40.3 % Low 43.0 - 75.0 % [facility] Platelet mean volume (Bld) [Entitic vol] 9.4 fL Low 9.5 - 13.5 fL [facility] TBH EO # 0.3 [facility] TB PLT 283 [facility] RBC 4.27 [facility] WBC 7.7 [facility] CNOVon 01-17-2025 CNOV Office Visit (GASTCC ) SAEED SARABIA ([id number]) 1940 F Date Time Provider Department 01/17/25 10:30 AM DINORA CARROLL [facility] During your visit today, we recorded the following information about you: Pulse Blood pressure Weight 62/minute 167/74 73.1 kg Dinora Carroll APRN.HOSPICE EXECUTIVE DIRECTOR 01/17/2025 1:31 PM Signed Consultation requested by [...] began experiencing abdominal pain. Initial evaluations at [facility] suggested the presence of multiple gallstones, with recommendations for cholecystectomy. However, subsequent evaluations by another physician at the same hospital contradicted this recommendation, stating that surgery was not necessary. After a week of hospitalization and multiple tests, no definitive cause for the abdominal pain was identified. Due to persistent severe pain, patient was taken to the [facility] Emergency Room, where further evaluations were conducted, including an endoscopy and various scans. A colonoscopy performed at [facility] revealed non-cancerous polyps, which were removed. During the evaluations at [facility], a scan indicated uterine thickening, leading to concerns about potential cancer. A family court justice at [facility] subsequently removed a polyp measuring 2 cm by 9 cm from the uterus and cervix. Following this procedure, patient's abdominal pain reportedly resolved. Patient has a known history of gallstones, with conflicting medical opinions on the necessity of cholecystectomy. One physician at [facility] recommended immediate surgery, stating the gallbladder was completely full of stones, while another physician at [facility] advised against it. Patient has also experienced [...] (TYLENOL) 3 (more content not included)... Normal [facility] HISTORY PHYSICALon HISTORY PHYSICAL HNO ID: [id number] Author: DINORA CARROLL APRN.HOSPICE EXECUTIVE DIRECTOR Service: ? Author Type: Nurse Practitioner Type: [...] began experiencing abdominal pain. Initial evaluations at [facility] suggested the presence of multiple gallstones, with recommendations for cholecystectomy. However, subsequent evaluations by another physician at the same hospital contradicted this recommendation, stating that surgery was not necessary. After a week of hospitalization and multiple tests, no definitive cause for the abdominal pain was identified. Due to persistent severe pain, patient was taken to the [facility] Emergency Room, where further evaluations were conducted, including an endoscopy and various scans. A colonoscopy performed at [facility] revealed non-cancerous polyps, which were removed. During the evaluations at [facility], a scan indicated uterine thickening, leading to concerns about potential cancer. A family court justice at [facility] subsequently removed a polyp measuring 2 cm by 9 cm from the uterus and cervix. Following this procedure, patient's abdominal pain reportedly resolved. Patient has a known history of gallstones, with conflicting medical opinions on the necessity of cholecystectomy. One physician at [facility] recommended immediate surgery, stating the gallbladder was completely full of stones, while another physician at [facility] advised against it. Patient has also experienced [...] once daily (more content not included)... Normal [facility] CNOVon 12-17-2024 CNOV Office Visit (OGFVWE ) SAEED SARABIA ([id number]) 1940 F Date Time Provider Department 12/17/24 9:00 AM LUCIANA GREEN OGFVWE During your visit today, we recorded the following information about you: Pulse Blood pressure Weight Height 70/minute 120/70 72.5 kg 1.676 m Cara Young MA 12/17/2024 12:51 PM Signed Sandstone Splitter offered: Patient declines. Luciana Green DO 12/17/2024 [...] Encounter Status:Closed by LUCIANA GREEN on 12/17/24 [facility] ANES POSTPROC EVALon 025 ANES POSTPROC EVAL HNO ID: [id number] Author: BERLIN NAQVI MD Service: Anesthesiology Author [...] December 06, 2024 TIME: 11:36 AM CSN: [id number] [facility] ANES PRE-OPon 12-06-2024 ANES PRE-OP HNO ID: [id number] Author: BERLIN NAQVI MD Service: Anesthesiology Author Type: Anesthesiologist Type: Anesthesia Preprocedure Evaluation Filed: 12/06/2024 07:27 Note Text: ANESTHESIOLOGY DAY OF SURGERY NOTE : 1940 Procedure Information Date/Time: 12/06/24 0730 Procedures: EXAM UNDER ANESTHESIA PELVIC / VAGINAL [...] and consent discussed: yes. Patient / Responsible Libertarian agrees to proceed: yes Patient / Surrogate [...] December 06, 2024 TIME: 7:27 AM CSN: [id number] [facility] BRIEF OP NOTon 12-06-2024 BRIEF OP NOT HNO ID: [id number] Author: ITZ AVALOS RN Service: ? Author Type: Registered Nurse Type: Brief Op Note Filed: 12/06/2024 09:02 Note Text: Per Surgeon, Fluid deficit is 285cc. [facility] TYPE + SCREENon 12-06-19 25 ABO O [facility] Rh Nom (Bld) Positive [facility] TYPE AND SCREEN EXPIRATION 12/09/2024 23:59 [facility] Specimen Type: BLOOD SPECIMEN Ordering Facility: [facility] Address: [address] [place] [address] BLOOD BANK CLIA [id number] [address] [place] [address] [place] [facility] NURSING PROGon 12-06-2024 NURSING PROG HNO ID: [id number] Author: KATHY TAVERAS RN Service: Nursing Author [...] Signed By: Kathy Taveras RN In Department: [facility] OPERATING ROOM Normal [facility] OPERATIVE NOon 12-06-2024 OPERATIVE NO HNO ID: [id number] Author: LUCIANA GREEN DO Service: Obstetrics Author Type: Physician Type: Operative Report Filed: 12/06/2024 09:21 Note Text: ELECTRONICS TESTER OPERATIVE/PROCEDURE REPORT LOG ID: [id number] Surgery/Procedure Date: 12/06/2024 Incision/Procedure Start Time: 8:09 AM Incision Close/Procedure End Time: 8:47 AM Surgeon(s)/Procedurali st(s) and Music Internship(s): Surgeons and Role: * Luciana Green DO [...] 06, 2024 TIME: 9:16 AM PAGER/CONTACT #: [facility] Pathology biopsy report Carlos (Tiss)on 12-06-2024 AP DISCLAIMER [facility] Comment on above: Order Comment: Speci men Type: TISSUE SPECIMENOrdering Facility: [facility] Address: [address] [place] [address] Result Comment: Ish beltrán Developed Test (LDT) Disclaimer: Performance characteristics of immunohistochemical, immunofluorescent, and chromogenic in-situ hybridization tests have been determined by the performing laboratory within [facility]'s [facility] Pathology and Laboratory Medicine Department ([facility], [facility], [facility], [facility], [facility], [facility], or [facility]) in a manner consistent with CLIA requirements. One or more of these tests may not have been cleared or approved by the FDA. [facility] is regulated under CLIA as qualified to perform high-complexity testing. These tests are used for clinical purposes. These should not be regarded as investigational or for research. Positive and negative controls stain appropriately. Performed By: #### 6 6121-5 ####[facility] LABCLIA [id number] [address] [place] CASE REPORT Normal [facility] Comment on above: Order Comment: Speci men Type: TISSUE SPECIMENOrdering Facility: [facility] Address: [address] [place] [address] Result Comment: Surg [facility] Pathology Report Case: [id number] Authorizing Provider: Luciana Green DO Collected: 12/06/2024 08:36 AM Ordering Location: [facility] Received: 12/06/2024 09:22 AM Operating Room Pathologist: Robyn Minaya MD Specimens: A) - Endometrium, Polyp B) - Endometrium, Curettings Performed By: #### 6 6121-5 ####[facility] LABIA [id number] [address] [place] CLINICAL HISTORY Normal [facility] Comment on above: Order Comment: Speci men Type: TISSUE SPECIMENOrdering Facility: [facility] Address: [address] [place] [address] Result Comment: Pre- op diagnosis: Endometrial polyp [N84.0] Performed By: #### 6 6121-5 ####[facility] LABIA [id number] [address] OF [facility] FINAL DIAGNOSIS Normal [facility] Comment on above: Order Comment: Speci men Type: TISSUE SPECIMENOrdering Facility: [facility] Address: [address] [place] [address] Result Comment: A. U terus, endometrium, polypectomy -Fragments of benign endometrial polyp B. Uterus, endometrium, dilation and curettage -Fragments of superficial inactive endometrium -Fragments of benign endometrial polyp at 1231 EST Performed By: #### 6 6121-5 ####[facility] LABCLIA [id number] [address] [address] [place] FINAL PERFORMING LAB Normal [facility] Comment on above: Order Comment: Speci men Type: TISSUE SPECIMENOrdering Facility: [facility] Address: [address] [place] [address] Result Comment: Diag nostic interpretation performed at: [facility], [address] [place] [address], [facility] [place] [address] CLIA# [id number] Sr Risk Management Consultant: Liam Naik MD Performed By: #### 6 6121-5 ####[facility] LABCLIA [id number] [place] [address] [place] GROSS DESCRIPTION Normal [facility] Comment on above: Order Comment: Speci men Type: TISSUE SPECIMENOrdering Facility: [facility] Address: [address] [place] [address] Result Comment: A. E ndometrium, Polyp Received [...] 2024 1:33 PM Gross examination performed at [facility], [address] [place] [address] Performed By: #### 6 6121-5 ####[facility] LABCLIA [id number] [address] [address] [place] TYPE + SCREENon 12-06-2024 ABO O Normal [facility] Comment on above: Order Comment: Speci men Type: BLOOD SPECIMENOrdering Facility: [facility] Address: [address] [place] [address] Performed By: #### T SCR ####[facility] [id number] [place] [address] [place] Rh Nom (Bld) Positive Normal [facility] Comment on above: Order Comment: Speci men Type: BLOOD SPECIMENOrdering Facility: [facility] Address: [address] [place] [address] Performed By: #### T SCR ####[facility]ANKCL[facility] [id number] [place] [id number] [facility] TYPE AND SCREEN EXPIRATION 12/09/2024 23:59 Normal [facility] Comment on above: Order Comment: Speci men Type: BLOOD SPECIMENOrdering Facility: [facility] Address: [address] [place] [address] Performed By: #### T SCR ####[facility]CL[facility] [id number] [address] HbA1c (Bld) [Mass fraction]o n 12-03-2024 Interpretation and review of laboratory results Abnormal [facility] - Hematology and Cell countson 12-03-2024 HbA1c (Bld) [Mass fraction] 5.80 % [facility] XR CHEST 2V FRONTAL/LATon * * *Final [...] skeletal findings. IMPRESSION: No acute radiographic abnormality. Supervisor Prop Making: ROSS Transcribe Date/Time: Nov 18 2024 12:10P Dictated by : VIOLET MONTENEGRO MD This examination was interpreted and the report reviewed and electronically signed by: VIOLET MONTENEGRO MD on Nov 18 2024 12:12PM EST [id number]^ ACN [facility] Radiology, MD Naga - 11/19/2024 * * [...] skeletal findings. IMPRESSION: No acute radiographic abnormality. Supervisor Prop Making: PSCB Transcribe Date/Time: Nov 18 2024 12:10P Dictated by : VIOLET MONTENEGRO MD This examination was interpreted and the report reviewed and electronically signed by: VIOLET MONTENEGRO MD on Nov 18 2024 12:12PM EST [id number]^SI^ ACN [facility] XR CHEST 2V FRONTAL/LATOrder ed By: Radiologist Radiology on 11-18-2024 [facility] Work Phone: HISTORY PHYSICALon HISTORY PHYSICAL HNO ID: [id number] Author: MAXINE SINGH APRN.EXPANDED FUNCTION DENTAL ASSISTANT Service: ? Author Type: Clinical Nurse Specialist Type: H&P Filed: 11/18/2024 12:26 Note Text: [facility] HISTORY AND PHYSICAL EXAMINATION SERVICE DATE: 11/14/2024 SERVICE TIME: 3:47 PM PRIMARY CARE PHYSICIAN: Galindo Miller CNP, HOSPICE EXECUTIVE DIRECTOR Assessment Patient has the following medical conditions which may affect ashley-operative course: Atrial fibrillation (HCC) Assessment: takes Eliquis daily, will stop 2 days pre op,currently stable Benign essential HTN Assessment: takes Lisinopril,Metoprolol, stable BP 147/[address] [facility] visit 11/15/24 CAD (coronary artery disease) Assessment: had LAD stent placed 2005 followed per [address] Door Maker Dr. Roberson DM type 2 (diabetes mellitus, type 2) (HCC) Assessment: takes Metformin,Glipizide currently stable Glucose Date Value Ref Range Status 10/20/2024 135 (H) 74 - 99 mg/dL Final Comment: The [place] Diabetes Association (ADA) provides guidance for cutoff [...] Standards of Medical Care in Diabetes 2016, [place] Diabetes Association. Diabetes Care. 2016.39(Suppl 1). HLD [...] large neck Non-male patient STOP-Bang Score: 1 [id number] Score: Age: >=75 Sex: female CHF history: No Hypertension history: Yes Stroke/TIA/thromboembo lism history: No Vascular disease history: No Diabetes history: Yes [id number] Score: 5 ARISCAT Score: Age: >80 Preoperative [...] W/O DANDC (more content not included)... Normal [facility] XR CHEST 2V FRONTAL/LATon XR CHEST [...] skeletal findings. IMPRESSION: No acute radiographic abnormality. Supervisor Prop Making: PSCJohnnie Transcribe Date/Time: Nov 18 2024 12:10P Dictated by : VIOLET MONTENEGRO MD This examination was interpreted and the report reviewed and electronically signed by: VIOLET MONTENEGRO MD on Nov 18 2024 12:12PM EST [id number] Normal [facility] Radiology Study observation (narrative) [facility] HISTOLOGY - TISSUE EXAMon LAB AP CASE REPORT Normal [facility] Comment on above: Result Comment: Surg ical Pathology Case: [id number] Authorizing Provider: Bradford Davis MD Collected: 11/13/2024 1100 Ordering Location: [facility] [facility] Received: 11/13/2024 [facility] Pathologist: Cyndee Eden MD Specimens: A) - Large Intestine, Cecum, cecum polyp to r/o adenoma B) - Large Intestine, Right/Ascending Colon, asending EMR polyp to R/O adenoma Performed By: #### L [id number] ####[facility] (BEAKER)[address] [place] [address] LAB AP CLINICAL INFORMATION Order Diagnoses Normal [facility] Comment on above: Result Comment: R10. 9 - Abdominal pain, unspecified site [ICD-10-CM] Performed By: #### L [id number] ####[facility] (BEAKER)[address] [place] [address] LAB AP DIAGNOSIS COMMENT B. Due to exten sive specimen fragmentation, it is not possible to differentiate a sessile serrated adenoma from a hyperplastic polyp. Suggest endoscopic correlation and close follow-up. [facility] Comment on above: Performed By: #### L [id number] ####[facility] ([facility])[address] [place] [address] LAB AP GROSS DESCRIPTION [facility] Comment on above: Result Comment: A. L arge Intestine, Cecum. Part A is received in formalin labeled Saeed Cornell and cecum polyp to rule out adenoma . It consists of 2 frank-pink, irregular pieces of mucosal tissue measuring 0.2 cm and 0.4 cm in greatest dimension. The specimen is submitted in toto in 1 cassette. Brandi Menendez, Pathologists' Music Internship student Trinidad Ornelas, Pathologists' Music Internship student B. Large Intestine, Right/Ascending Colon. Part B is received in formalin labeled Saeed [place] and ascending EMR polyp to rule out adenoma . It consists of multiple frank-pink, irregular pieces of mucosal tissue measuring 2.3 x 1.7 x 0.3 cm in aggregate. The specimen is submitted in toto in 1 cassette. No specimen is received pinned to a surgical board. Brandi Menendez, Pathologists' Music Internship student Trinidad Ornelas, Pathologists' Music Internship student Performed By: #### L [id number] ####[facility] ([facility])[address] [place] [address] LAB AP MICROSCOPIC DESCRIPTION Microscopic examination performed. [facility] Comment on above: Performed By: #### L [id number] ####[facility] ([facility])[address] [place] [address] LAB AP REPORT FINAL DIAGNOSIS NARRATIVE [facility] Comment on above: Result Comment: A. C olon, cecal polyp, polypectomy: - Tubular adenoma. - No high grade dysplasia is seen. B. Colon, ascending polyp, polypectomy: - Multiple fragments of serrated polyp with no dysplasia. - See comment. Performed By: #### L [id number] ####[facility] ([facility])[address] [place] [address] POCT GLUCOSE METER UNSOLICIT ED RESULTSon 11-13-2024 Glucose [Mass/Vol] 120 mg/dL High 70-105 [facility]iver angella [facility] Comment on above: Order Comment: Waive d Testing in the ED is performed under the ED CLIA certificate #[id number]. Result Comment: jhag eman Performed By: #### L [id number] #### [facility] (BEAKER) [address] [place] [address] Prep for Procedureon 025 Prep for Procedure [id number] Saeed Sarabia 1940 F Date Provider Department Center 11/13/2024 328-MARIELLA CHILDS [facility] PREOP [facility] Family History Problem Relation Age of Onset Heart attack Mother Coronary artery disease Mother Heart attack Father Coronary artery disease Father Multiple sclerosis Sister Family Status - Relation Status Age at Mother Father Sister Normal [facility] CNPNon 11-07-2024 CNPN Telephone (OGFVWE) SAEED SARABIA ([id number]) 1940 F Date Time Provider Department 11/07/24 LUCIANA GREEN During your visit today, we recorded the following information about you: Alton Wang 11/07/2024 4:33 PM Signed Screen Door Maker office called to give update from office [...] Status:Closed by ALTON WANG on 11/14/24 Normal [facility] HPon 11-07-2024 [facility] Cardiology - [facility] Subjective Saeed Sarabia is a 84 y.o. year old female patient being seen for 9 mo follow up CAD, CHF, PAF, and hypertension. She needs clearance for colonoscopy scheduled 11/13/2024 at [facility] with Dr. Davis. Patient also states she needs clearance for D&C at [facility] for uterine polyp. Denies chest pain, [...] Mood and (more content not included)... Normal [facility] Office Visiton 11-07-2024 Follow-up visit [id number] Saeed Sarabia 1940 F Date Provider Department Center 11/07/2024 JOSE [facility] Family History Problem Relation Age of Onset Heart attack Mother Coronary artery disease Mother Heart attack Father Coronary artery disease Father Multiple sclerosis Sister Family Status - Relation Status Age at Mother Father Sister Level of Service:[address] [place] OFFICE/OUTPATIENT ESTABLISHED MOD MDM 30 MIN Normal [facility] Jose Cruz 11-05-2024 [place] Telephone (OGFVWE) SAEED SARABIA ([id number]) 1940 F Date Time Provider Department 11/05/24 LUCIANA GREEN OGFVWE During your visit today, we recorded the following information about you: Rehan Rashid RN 11/05/2024 11:19 AM Signed ----- Message from Luciana Green DO sent at 11/04/2024 4:08 PM EST ----- Regarding: chad TRACIE Zelaya, Can you let this patient or her know that I was unable to reach her core maker helper and to have them tell the core maker helper to review my note and that she is going to have surgery and they will need recs. [facility] wont let me message him due to him being at [place] but we can see things in care [...] Status:Closed by REHAN RASHID on 11/05/24 Normal [facility] CNOVon 11-04-2024 CNOV Office Visit (OGFVWE ) SAEED SARABIA ([id number]) 1940 F Date Time Provider Department 11/04/24 [...] OB History No obstetric history on file. 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 All questions and concerns were addressed. [...] - Mode (more content not included)... Normal [facility] SURGICAL PATHOLOGYon [facility] CASE REPORT [facility] Comment on above: Surgical Pathology R eport Case: [id number] Authorizing Provider: Gabriela Centeno MD Collected: 10/29/2024 10:40 AM Ordering Location: OB/Gynecology Received: 10/29/2024 11:58 AM Pathologist: Sabina Santiago MD Specimen: Endometrium, Biopsy, endonetrium [facility] CLINICAL HISTORY thickened endometri um on CT and pelvic ultrasound, large polyp prolapsing out of the cervix appears to be attached to endometrial polyp. growt, no bleeding [facility] DIAGNOSIS COMMENT Sections show limi rashi superficial strips of inactive endometrium without intact underlying stroma. There is no evidence of malignancy in this specimen. An endometrial curetting is recommended if clinical [facility]. [facility] Comment on above: A. Endometrium, biop sy: - Superficial strips of inactive endometrium, see comment. FINAL PERFORMING LAB [facility] Comment on above: Diagnostic interpret ation performed at: [facility], [facility], Desk [address]IA# [id number] Sr Risk Management Consultant: Liam Naik MD [facility] GROSS DESCRIPTION [facility] Comment on above: A. Endometrium, Biop sy Received in formalin are multiple frank, soft feathery segments of tissue mixed with mucinous material aggregating to 0.3 x 0.1 x 0.1 cm. Totally submitted in one cassette. May not survive processing. Gross examination performed at [facility], [address], [place] [id number] [facility] 10/29/2024 5:17 PM Specimen Type: TISSU E SPECIMEN Ordering Facility: [facility] Address: [address], [place] [id number] Original Ordering Provider: GABRIELA CENTENO [facility] 10-30-2024 [facility] Telephone (OBGFVC) SAEED SARABIA ([id number]) 1940 F Date Time Provider Department 10/30/24 GABRIEAL CENTENO [employer] During your visit today, we recorded the [...] Status:Closed by GABRIELA CENTENO on 10/30/24 Normal [facility] CNOVon 10-29-2024 CNOV Office Visit (NBHMDH ) SAEED SARABIA ([id number]) 1940 F Date Time Provider Department 10/29/24 12:30 PM [facility] During your visit today, we recorded the following information about you: Brendon Dorsey MD 10/29/2024 3:53 PM Signed [facility] New Patient Evaluation Date: October 29, 2024 Patient Name: Saeed Sarabia [facility] was asked by to evaluate Saeed S Cornell. Our recommendations of care will be communicated by shared medical record. Reason for Evaluation/Chief complaint: memory concerns Accompanied by: SUBJECTIVE: HPI: Saeed Sarabia is a 84 year old Right handed female who [facility] for an initial evaluation. Patient has been [...] Never D (more content not included)... Normal [facility] CNOV Office Visit (OBGYST ) SAEED SARABIA ([id number]) 1940 F Date Time Provider Department 10/29/24 10:00 AM TECH 1 [facility] STRO OBGYST During your visit today, we recorded the following information about you: Pulse Blood pressure Weight Height 66/minute 155/73 68 kg 1.676 m Gabriela Centeno MD 10/29/2024 8:34 PM Signed Saeed Sarabia is a 84 year old No obstetric history on file. here for SIS. Referred by: Luciana Green [id number] [address] Chief Complaint: Thickened endometrium Endometrial Biopsy: No [...] for procedure results. Gabriela Centeno MD Ultrasound Garbiela Centeno MD 10/29/2024 10:34 AM Signed SALINE [...] CASSY GREEN (more content not included)... Normal [facility] SURGICAL PATHOLOGYon 025 CASE REPORT Normal [facility] Comment on above: Order Comment: Speci men Type: TISSUE SPECIMENOrdering Facility: [facility] Address: [address] [place] [address] Result Comment: Surg ical Pathology Report Case: [id number] Authorizing Provider: Gabriela Centeno MD Collected: 10/29/2024 10:40 AM Ordering Location: OB/Gynecology Received: 10/29/2024 11:58 AM Pathologist: Sabina Santiago MD Specimen: Endometrium, Biopsy, endonetrium Performed By: #### S ####[facility] LABCLIA [id number] [place] [address] [place] CLINICAL HISTORY thickened endometriu m on CT and pelvic ultrasound, large polyp prolapsing out of the cervix appears to be attached to endometrial polyp. growt, no bleeding Normal [facility] Comment on above: Order Comment: Speci men Type: TISSUE SPECIMENOrdering Facility: [facility] Address: [address] [place] [address] Performed By: #### S ####[facility] LABCLIA [id number] [place] [address] [place] DIAGNOSIS COMMENT Sections show limite d superficial strips of inactive endometrium without intact underlying stroma. There is no evidence of malignancy in this specimen. An endometrial curetting is recommended if clinical indicated. Normal [facility] Comment on above: Order Comment: Speci men Type: TISSUE SPECIMENOrdering Facility: [facility] Address: [address] [place] [address] Performed By: #### S ####[facility] LABCLIA [id number] [place] [address] [place] FINAL DIAGNOSIS Normal [facility] Comment on above: Order Comment: Speci men Type: TISSUE SPECIMENOrdering Facility: [facility] Address: [address] [place] [address] Result Comment: A. E ndometrium, biopsy: - Superficial strips of inactive endometrium, see comment. Performed By: #### S ####[facility] LABCLIA [id number] [address] [place] FINAL PERFORMING LAB Normal [facility] Comment on above: Order Comment: Speci men Type: TISSUE SPECIMENOrdering Facility: [facility] Address: [address] [place] [address] Result Comment: Diag nostic interpretation performed at: [facility], [address] [place] [address] CLIA# [id number] Sr Risk Management Consultant: Liam Naik MD Performed By: #### S ####[facility] LABCLIA [id number] [address] STATES OF [facility] GROSS DESCRIPTION Normal [facility] Comment on above: Order Comment: Speci men Type: TISSUE SPECIMENOrdering Facility: [facility] Address: [address] [place] [address] Result Comment: A. E ndometrium, Biopsy Received in formalin are multiple frank, soft feathery segments of tissue mixed with mucinous material aggregating to 0.3 x 0.1 x 0.1 cm. Totally submitted in one cassette. May not survive processing. Gross examination performed at [facility], [address] [place] [address] 10/29/2024 5:17 PM Performed By: #### S ####[facility] LABIA [id number] [place] [address] [place] US Uterus and [...] Read By: Gabriela Centeno M.D. MATERNAL MEDICINE [facility] Radiology Study observation (narrative) [facility] CNOVon 10-24-2024 CNOV Office Visit (OGFVWE ) SAEED SARABIA ([id number]) 1940 F Date Time Provider Department 10/24/24 1:30 PM LUCIANA GREEN OGFVWE During your visit today, we recorded the following information about you: Pulse Blood pressure Weight Height 65/minute 120/70 70.3 kg 1.651 m Cara Young MA 10/24/2024 3:36 PM Signed [place] Splitter offered: Patient declines. Luciana Green, 10/24/2024 3:36 [...] OB History No obstetric history on file. 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 As applicable, any other physician, advance practice provider, medical student, or other health professional student that will be observing or involved in the sensitive examination for educational or training purposes was discussed with the Patient or Authorized Rn Home Health. The Patient or Authorized Rn Home Health has agreed to proceed with the sensitive examination. (Sensitive examination includes inspection and/or palpation of the breasts, pelvis, prostate and anorectal regions). ASSESSMENT AND PLAN: Assessment AND Plan Thickened endometrium - Likely secondary to polyp seen protruding through cervix - Recommend US/SIS to evaluate and discussed need to (more content not included)... Normal [facility] Orders Onlyon 10-23-2024 Orders Only [id number] Saeed Sarabia 1940 F Date Provider Department Center 10/23/2024 [id number], MALISSA [facility] OR [facility] Family History Problem Relation Age of Onset Heart attack Mother Coronary artery disease Mother Heart attack Father Coronary artery disease Father Multiple sclerosis Sister Family Status - Relation Status Age at Mother Father Sister Normal [facility] SURGICAL PATHOLOGYon [facility] CASE REPORT [facility] Comment on above: Surgical Pathology R eport Case: [id number] Authorizing Provider: Atul Crowder MD Collected: 10/21/2024 10:59 AM Ordering Location: [facility] Received: 10/21/2024 12:39 PM Endoscopy - ENDO Pathologist: Ned Michel MD Specimens: A) - Small Bowel, Duodenum, Biopsy, Jar A, R/O Whipple's Disease B) - Stomach, Biopsy, Jar B R/O H.Pylori [facility] FINAL DIAGNOSIS [facility] Comment on above: A. Duodenum, biopsy: - Duodenal mucosa with no significant pathologic change. B. Stomach, biopsy: - Gastric antral and oxyntic-type mucosa with mild reactive epithelial changes and histologic features consistent with proton pump inhibitor use. - No intestinal metaplasia or morphologic evidence of Helicobacter pylori organisms. FINAL PERFORMING LAB [facility] Comment on above: Diagnostic interpret ation performed at: [facility], [address] [place] [address], Desk [address] [address] CLIA# [id number] Sr Risk Management Consultant: Liam Naik MD [facility] GROSS DESCRIPTION [facility] Comment on above: A. Small Bowel, Duod enum, Biopsy Received in formalin are multiple pieces of frank, soft tissue aggregating to 1.2 x 0.2 x 0.2 cm. Totally submitted in one cassette. B. Stomach, Biopsy Received in formalin are multiple pieces of frakn, soft tissue aggregating to 0.9 x 0.3 x 0.2 cm. Totally submitted in one cassette. Gross examination performed at [facility], [address] [place] [address] October 21, 2024 5:42 PM Specimen Type: TISSU E SPECIMEN Ordering Facility: [facility] Address: [address] [place] [address] Original Ordering Provider: ATUL CROWDER [facility] ANES POSTPROC EVALon 025 ANES POSTPROC EVAL HNO ID: [id number] Author: RAMIREZ SOLIS MD Service: Critical Care Author Type: Anesthesiologist Type: Anesthesia Postprocedure Evaluation Filed: 10/21/2024 12:59 Note Text: POST ANESTHESIA EVALUATION NOTE : 1940 Procedure Summary Date: 10/21/24 Room / Location: [facility] Endoscopy - ENDO Anesthesia Start: 1052 Anesthesia Stop: 1115 Procedure: EGD DIAGNOSTIC Diagnosis: (Dyspepsia, Unspecified) Scheduled Providers: Atul Crowder MD; Ramirez Solis MD; Cayla Edward APRN.M48 M60 ARMOR CREWMAN Responsible Provider: Ramirez Solis MD Anesthesia Type: [...] October 21, 2024 TIME: 12:59 PM CSN: [id number] Normal [facility] ANES PRE-OPon 10-21-2024 ANES PRE-OP HNO ID: [id number] Author: RAMIREZ SOLIS MD Service: Critical Care Author Type: Anesthesiologist Type: Anesthesia Preprocedure Evaluation Filed: 10/21/2024 10:23 Note Text: ANESTHESIOLOGY DAY OF SURGERY NOTE : 1940 Procedure Information Date/Time: 10/21/24 1000 Scheduled providers: Atul Crowder MD; Ramirez Solis MD; Cayla Edward APRN.M48 M60 ARMOR CREWMAN Procedure: EGD DIAGNOSTIC Location: [facility] Endoscopy - ENDO Estimated body mass [...] and consent discussed: yes. Patient / Responsible Libertarian agrees to proceed: yes Patient / Surrogate [...] three times d (more content not included)... [facility] 10-21-2024 [facility] HNO ID: [id number] Author: AL THOMPSON MD Service: General Internal Medicine Author Type: Nurse Practitioner Type: Discharge Summary Filed: 10/21/2024 21:53 Note Text: Attestation signed by Al Thompson MD at 10/21/2024 9:53 PM [place] DISCHARGE SUMMARY PATIENT NAME: Saeed Sarabia Code [...] further evaluation. Please follow up with your family court justice on an outpatient basis 3. Cholelithiasis. 4. [...] and unintentional weight loss. Recent admission in [place] for similar symptoms with negative CTH and [...] WNL - Follow up with [facility] as an outpatient - Follow up with [...] Thompson MD (more content not included)... Normal [facility] CONSULT PROGon 10-21-2024 CONSULT PROG HNO ID: [id number] Author: DAI BHATT APRN.HOSPICE EXECUTIVE DIRECTOR Service: Psychiatry Author Type: Nurse Practitioner Type: [...] (!) 53 (!) 59 68 Resp: 8 19 18 18 Temp: 36.7 ?C (98.1 ?F) 36.9 ?C (98.4 ?F) TempSrc: Oral Oral SpO2: 100% 95% 96% 97% Weight: Height: PHYSICAL EXAMINATION: Muscle Tone/Strength: No Tremors, Rigidity, Hyperreflexia, or Clonus. Moved Extremities Against [place]. Gait / Station: Unable to Examine: sitting in a chair at the bedside MENTAL STATUS EXAMINATION: Appearance: In hospital gown, well groomed, good eye contact, and sitting in chair at the bedside Beh (more content not included)... Normal [facility] HISTORY PHYSICALon HISTORY PHYSICAL HNO ID: [id number] Author: ATUL CROWDER MD Service: Gastroenterology Author [...] MAC Additional Comments: None Atul Crowder MD [facility] NURSING PROGon 10-21-2024 NURSING PROG HNO ID: [id number] Author: JOIE FUENTES, RN Service: Nursing Author [...] (RECOMMENDATION): None Electronically Signed By: Joie Fuentes [facility] SURGICAL PATHOLOGYon 025 CASE REPORT [facility] Comment on above: Order Comment: Speci men Type: TISSUE SPECIMENOrdering Facility: [facility] Address: [address] [place] [address] Result Comment: Surg ica Pathology Report Case: [id number] Authorizing Provider: Atul Crowder MD Collected: 10/21/2024 10:59 AM Ordering Location: [facility] Received: 10/21/2024 12:39 PM Endoscopy - ENDO Pathologist: Ned Michel MD Specimens: A) - Small Bowel, Duodenum, Biopsy, Jar A, R/O Whipple's Disease B) - Stomach, Biopsy, Jar B R/O H.Pylori Performed By: #### S ####[facility] LABCLIA [id number] [place] [address] FINAL DIAGNOSIS Normal [facility] Comment on above: Order Comment: Speci men Type: TISSUE SPECIMENOrdering Facility: [facility] Address: [address] [place] [address] Result Comment: A. D uodenum, biopsy: - Duodenal mucosa with no significant pathologic change. B. Stomach, biopsy: - Gastric antral and oxyntic-type mucosa with mild reactive epithelial changes and histologic features consistent with proton pump inhibitor use. - No intestinal metaplasia or morphologic evidence of Helicobacter pylori organisms. Performed By: #### S ####[facility] LABCLIA [id number] [address] OF [facility] FINAL PERFORMING LAB Normal [facility] Comment on above: Order Comment: Speci men Type: TISSUE SPECIMENOrdering Facility: [facility] Address: [address] [place] [address] Result Comment: Diag nostic interpretation performed at: [facility], [address] [place] [address] CLIA# [id number] Sr Risk Management Consultant: Liam Naik MD Performed By: #### S ####[facility] LABCLIA [id number] [address] GROSS DESCRIPTION Normal [facility] Comment on above: Order Comment: Speci men Type: TISSUE SPECIMENOrdering Facility: [facility] Address: [address] [place] [address] Result Comment: A. S mall Bowel, Duodenum, Biopsy Received in formalin are multiple pieces of frank, soft tissue aggregating to 1.2 x 0.2 x 0.2 cm. Totally submitted in one cassette. B. Stomach, Biopsy Received in formalin are multiple pieces of frank, soft tissue aggregating to 0.9 x 0.3 x 0.2 cm. Totally submitted in one cassette. Gross examination performed at [facility], [address] [place] [address] October 21, 2024 5:42 PM Performed By: #### S ####[facility] LABCLIA [id number] [place] [address] [place] Upper GI endoscopyon 025 Upper GI endoscopy [facility] Gastrointestinal Endoscopy Patient Name: Saeed Sarabia Procedure Date: 10/21/2024 10:40 AM Date of : 1940 Admit Type: Inpatient Age: 84 Room: [place] [address] Gender: Female Note Status: Finalized Attending MD: Atul Crowder MD, [id number] Procedure: Upper GI endoscopy Indications: Dyspepsia Providers: [...] history and physical. Referring Physician: Ned Gonzales (carburetor mechanic) Anthony (Referring MD) Medicines: Monitored Anesthesia Care [...] antiplatelet agents. Procedure Code(s): --- Professional --- 53087, Esophagogastroduodenos copy, flexible, transoral; with biopsy, single or multiple Diagnosis Code(s): --- Professional --- K31.89, Other diseases of stomach and duodenum R10.13, Epigastric pain CPT copyright 2020 [employer] [place] [employer]. All rights reserved. The codes documented in this report are preliminary and upon disposal man review may be revised to meet current compliance requirements. Attending Participation: I personally performed the entire procedure. Scope In: 10:59:20 AM Scope Out: 11:04:58 AM MD Atul Dumas MD 10/21/2024 11:15:51 AM This report has been signed electronically by Atul Crowder MD Number of Addenda: 0 Note Initiated On: 10/21/2024 10:40 AM Estimated Blood Loss: Estimated blood loss was minimal. Normal [facility] CBC W Auto Differential pane l (Bld)on 10-20-2024 Basophils (Bld) [#/Vol] 0.03 10*3/uL Normal <0.11 [facility] Comment on above: Order Comment: Speci men Type: BLOOD SPECIMENOrdering Facility: [facility] Address: [address] [place] [address] [place] [address] Performed By: #### 5 7021-8 ####[facility] LABORATORYCLIA [id number] [place] [id number] [place] Basophils/100 WBC (Bld) 0.4 % Normal [facility] Comment on above: Order Comment: Speci men Type: BLOOD SPECIMENOrdering Facility: [facility] Address: [address] [place] [address] Performed By: #### 5 7021-8 ####[facility] LABORATORYCLIA [id number] [address] Differential cell count method Nom (Bld) Auto Normal [facility] Comment on above: Order Comment: Speci men Type: BLOOD SPECIMENOrdering Facility: [facility] Address: [address] [place] [address] Performed By: #### 5 7021-8 ####[facility] LABORATORYCLIA [id number] [place] [address] [place] Eosinophils (Bld) [#/Vol] 0.32 10*3/uL Normal <0.46 [facility] Comment on above: Order Comment: Speci men Type: BLOOD SPECIMENOrdering Facility: [facility] Address: [address] [place] [address] Performed By: #### 5 7021-8 ####[facility] LABORATORYCLIA [id number] [address] Eosinophils/100 WBC (Bld) 4.6 % Normal [facility] Comment on above: Order Comment: Speci men Type: BLOOD SPECIMENOrdering Facility: [facility] Address: [address] [place] [address] Performed By: #### 5 7021-8 ####[facility] LABORATORYCLIA [id number] [address] [place] Erythrocyte distribution width (RBC) [Ratio] 14.0 % Normal 11.5-15.0 [facility] Comment on above: Order Comment: Speci men Type: BLOOD SPECIMENOrdering Facility: [facility] Address: [address] [place] [address] Performed By: #### 5 7021-8 ####[facility] LABORATORYCLIA [id number] [place] [address] [place] Hematocrit (Bld) [Volume fraction] 36.0 % Normal 36.0-46.0 [facility] Comment on above: Order Comment: Speci men Type: BLOOD SPECIMENOrdering Facility: [facility] Address: [address] [place] [address] Performed By: #### 5 7021-8 ####[facility] LABORATORYCLIA [id number] [place] [address] [place] Hemoglobin (Bld) [Mass/Vol] 11.9 g/dL Normal 11.5-15.5 [facility] Comment on above: Order Comment: Speci men Type: BLOOD SPECIMENOrdering Facility: [facility] Address: [address] [place] [address] Performed By: #### 5 7021-8 ####[facility] LABORATORYCLIA [id number] [place] [address] [place] Immature granulocytes (Bld) [#/Vol] 10*3/uL Normal <0.10 [facility] Comment on above: Order Comment: Speci men Type: BLOOD SPECIMENOrdering Facility: [facility] Address: [address] [place] [address] Performed By: #### 5 7021-8 ####[facility] LABORATORYCLIA [id number] [place] [address] [place] Immature granulocytes/100 WBC (Bld) 0.1 % Normal [facility] Comment on above: Order Comment: Speci men Type: BLOOD SPECIMENOrdering Facility: [facility] Address: [address] [place] [address] Performed By: #### 5 7021-8 ####[facility] LABORATORYCLIA [id number] [place] [address] [place] Lymphocytes (Bld) [#/Vol] 2.02 10*3/uL Normal 1.00-4.00 [facility] Comment on above: Order Comment: Speci men Type: BLOOD SPECIMENOrdering Facility: [facility] Address: [address] [place] [address] Performed By: #### 5 7021-8 ####[facility] LABORATORYCLIA [id number] [address] [place] Lymphocytes/100 WBC (Bld) 28.9 % Normal [facility] Comment on above: Order Comment: Speci men Type: BLOOD SPECIMENOrdering Facility: [facility] Address: [address] [place] [address] Performed By: #### 5 7021-8 ####[facility] LABORATORYCLIA [id number] [address] [place] MCH (RBC) [Entitic mass] 30.4 pg Normal 26.0-34.0 [facility] Comment on above: Order Comment: Speci men Type: BLOOD SPECIMENOrdering Facility: [facility] Address: [address] [place] [address] Performed By: #### 5 7021-8 ####[facility] LABORATORYCLIA [id number] [address] [place] MCHC (RBC) [Mass/Vol] 33.1 g/dL Normal 30.5-36.0 [facility] Comment on above: Order Comment: Speci men Type: BLOOD SPECIMENOrdering Facility: [facility] Address: [address] [place] [address] Performed By: #### 5 7021-8 ####[facility] LABORATORYCLIA [id number] [address] [place] MCV (RBC) [Entitic vol] 92.1 fL Normal 80.0-100.0 [facility] Comment on above: Order Comment: Speci men Type: BLOOD SPECIMENOrdering Facility: [facility] Address: [address] [place] [address] Performed By: #### 5 7021-8 ####[facility] LABORATORYCLIA [id number] [address] [place] Monocytes (Bld) [#/Vol] 0.70 10*3/uL Normal <0.87 [facility] Comment on above: Order Comment: Speci men Type: BLOOD SPECIMENOrdering Facility: [facility] Address: [facility] [place] [address] Performed By: #### 5 7021-8 ####[facility] LABORATORYCLIA [id number] [place] [address] [place] Monocytes/100 WBC (Bld) 10.0 % Normal [facility] Comment on above: Order Comment: Speci men Type: BLOOD SPECIMENOrdering Facility: [facility] Address: [address] [place] [address] Performed By: #### 5 7021-8 ####[facility] LABORATORYCLIA [id number] [place] [address] [place] Neutrophils (Bld) [#/Vol] 3.90 10*3/uL Normal 1.45-7.50 [facility] Comment on above: Order Comment: Speci men Type: BLOOD SPECIMENOrdering Facility: [facility] Address: [address] [place] [address] Performed By: #### 5 7021-8 ####[facility] LABORATORYCLIA [id number] [place] [address] [place] Neutrophils/100 WBC (Bld) 56.0 % Normal [facility] Comment on above: Order Comment: Speci men Type: BLOOD SPECIMENOrdering Facility: [facility] Address: [address] [place] [address] Performed By: #### 5 7021-8 ####[facility] LABORATORYCLIA [id number] [place] [address] [place] Nucleated RBC (Bld) [#/Vol] 10*3/uL Normal <0.01 [facility] Comment on above: Order Comment: Speci men Type: BLOOD SPECIMENOrdering Facility: [facility] Address: [address] [place] [address] Performed By: #### 5 7021-8 ####[facility] LABORATORYCLIA [id number] [place] [address] [place] Nucleated RBC/100 WBC (Bld) [Ratio] 0.0 /100 WBC Normal [facility] Comment on above: Order Comment: Speci men Type: BLOOD SPECIMENOrdering Facility: [facility] Address: [address] [place] [address] Performed By: #### 5 7021-8 ####[facility] LABORATORYCLIA [id number] [place] [address] [place] Platelet mean volume (Bld) [Entitic vol] 9.4 fL Normal 9.0-12.7 [facility] Comment on above: Order Comment: Speci men Type: BLOOD SPECIMENOrdering Facility: [facility] Address: [address] [place] [address] Performed By: #### 5 7021-8 ####[facility] LABORATORYCLIA [id number] [place] [address] [place] Platelets (Bld) [#/Vol] 278 10*3/uL Normal 150-400 [facility] Comment on above: Order Comment: Speci men Type: BLOOD SPECIMENOrdering Facility: [facility] Address: [address] [place] [address] Performed By: #### 5 7021-8 ####[facility] LABORATORYCLIA [id number] [place] [address] [place] RBC (Bld) [#/Vol] 3.91 10*6/uL Normal 3.90-5.20 [facility] Comment on above: Order Comment: Speci men Type: BLOOD SPECIMENOrdering Facility: [facility] Address: [address] [place] [address] Performed By: #### 5 7021-8 ####[facility] LABORATORYCLIA [id number] [place] [address] [place] WBC (Bld) [#/Vol] 6.98 10*3/uL Normal 3.70-11.00 [facility] Comment on above: Order Comment: Speci men Type: BLOOD SPECIMENOrdering Facility: [facility] Address: [address] [place] [address] Performed By: #### 5 7021-8 ####[facility] LABORATORYCLIA [id number] [address] [place] CONSULTon 10-20-2024 CONSULT HNO ID: [id number] Author: PUJA PEREZ MD Service: Psychiatry Author Type: Physician Type: Consults Filed: 10/20/2024 11:47 Note Text: CL NEW - PSYCHIATRY INITIAL CONSULTATION NOTE SERVICE DATE: October 20, 2024 SERVICE TIME: 7:17 AM Visit Type: In person CONSULTING SERVICE : Psychiatry, requested by REASON FOR CONSULTATION: Delirium. Subjective IDENTIFYING INFO: Ms. Sarabia is a 84 year old female from [place], [place] HISTORY OF PRESENT ILLNESS : Patient [...] spouse/partner and adult children Legal History: Denied Tenriism Affiliation(s): none Abuse History: She denied a [...] Rigidity, Hyperreflexia, or Clonus. Moved Extremities Against [place]. Gait / Station: Not assessed MENTAL STATUS [...] of illnes (more content not included)... Normal [facility] Comprehensive metabolic 2000 panelon 10-20-2024 Albumin [Mass/Vol] 3.5 g/dL Low 3.9-4.9 [facility] Comment on above: Order Comment: Speci men Type: BLOOD SPECIMENOrdering Facility: [facility] Address: [address] [place] [address] Performed By: #### 2 4323-8 ####[facility] LABORATORYCLIA [id number] [place] [address] [place] ALP [Catalytic activity/Vol] 58 U/L Normal 34-123 [facility] Comment on above: Order Comment: Speci men Type: BLOOD SPECIMENOrdering Facility: [facility] Address: [address] [place] [address] Performed By: #### 2 4323-8 ####[facility] LABORATORYCLIA [id number] [place] [address] [place] ALT [Catalytic activity/Vol] 16 U/L Normal 7-38 [facility] Comment on above: Order Comment: Speci men Type: BLOOD SPECIMENOrdering Facility: [facility] Address: [address] [place] [address] Performed By: #### 2 4323-8 ####[facility] LABORATORYCLIA [id number] [place] [address] [place] Anion gap [Moles/Vol] 10 mmol/L Normal 8-15 [facility] Comment on above: Order Comment: Speci men Type: BLOOD SPECIMENOrdering Facility: [facility] Address: [address] [place] [address] Performed By: #### 2 4323-8 ####[facility] LABORATORYCLIA [id number] [place] [address] [place] AST [Catalytic activity/Vol] 20 U/L Normal 13-35 [facility] Comment on above: Order Comment: Speci men Type: BLOOD SPECIMENOrdering Facility: [facility] Address: [address] [place] [address] Performed By: #### 2 4323-8 ####[facility] LABORATORYCLIA [id number] [place] [address] [place] Bilirubin [Mass/Vol] 0.3 mg/dL Normal 0.2-1.3 [facility] Comment on above: Order Comment: Speci men Type: BLOOD SPECIMENOrdering Facility: [facility] Address: [address] [place] [address] Performed By: #### 2 4323-8 ####[facility] LABORATORYCLIA [id number] [place] [address] [place] Calcium [Mass/Vol] 9.0 mg/dL Normal 8.5-10.2 [facility] Comment on above: Order Comment: Speci men Type: BLOOD SPECIMENOrdering Facility: [facility] Address: [address] [place] [address] Performed By: #### 2 4323-8 ####[facility] LABORATORYCLIA [id number] [place] [address] [place] Chloride [Moles/Vol] 99 mmol/L Normal 98-107 [facility] Comment on above: Order Comment: Speci men Type: BLOOD SPECIMENOrdering Facility: [facility] Address: [address] [place] [address] Performed By: #### 2 4323-8 ####[facility] LABORATORYCLIA [id number] [place] [address] [place] CO2 [Moles/Vol] 28 mmol/L Normal 22-30 [facility] Comment on above: Order Comment: Speci men Type: BLOOD SPECIMENOrdering Facility: [facility] Address: [address] [place] [address] Performed By: #### 2 4323-8 ####[facility] LABORATORYCLIA [id number] [place] [address] [place] [facility] Creatinine [Mass/Vol] 0.74 mg/dL Normal 0.58-0.96 [facility] Comment on above: Order Comment: Musanae nieto Type: BLOOD SPECIMENOrdering Facility: [facility] Address: [address] [place] [address] Performed By: #### 2 4323-8 ####[facility] LABORATORYCLIA [id number] [place] [address] [place] Creatinine and Glomerular filtration rate.predicted panel (S/P/Bld) 80 mL/min/1.73m??? Normal >=60 [facility] Comment on above: Order Comment: Musanae nieto Type: BLOOD SPECIMENOrdering Facility: [facility] Address: [address] [place] [address] Result Comment: Roz mated Glomerular Filtration Rate [...] actual GFR. Performed By: #### 2 4323-8 ####[facility] LABORATORYCLIA [id number] [place] [address] [place] Glucose [Mass/Vol] 135 mg/dL High 74-99 [facility] Comment on above: Order Comment: Akilah nieto Type: BLOOD SPECIMENOrdering Facility: [facility] Address: [address] [place] [address] Result Comment: The [place] [employer] (ADA) provides guidance for cutoff [...] Standards of Medical Care in Diabetes 2016, [place] [employer] [place] [employer]. Diabetes Care. 2016.39(Suppl 1). Performed By: #### 2 4323-8 ####[facility] LABORATORYCLIA [id number] [place] [address] [place] Potassium [Moles/Vol] 3.7 mmol/L Normal 3.7-5.1 [facility] Comment on above: Order Comment: Speci gerson Type: BLOOD SPECIMENOrdering Facility: [facility] Address: [address] [place] [address] Performed By: #### 2 4323-8 ####[facility] LABORATORYCLIA [id number] [place] [address] [place] Protein [Mass/Vol] 6.2 g/dL Low 6.3-8.0 [facility] Comment on above: Order Comment: Speci men Type: BLOOD SPECIMENOrdering Facility: [facility] Address: [address] [place] [address] Performed By: #### 2 4323-8 ####[facility] LABORATORYCLIA [id number] [place] [address] [place] Sodium [Moles/Vol] 137 mmol/L Normal 136-144 [facility] Comment on above: Order Comment: Speci men Type: BLOOD SPECIMENOrdering Facility: [facility] Address: [address] [place] [address] Performed By: #### 2 4323-8 ####[facility] LABORATORYCLIA [id number] [place] [address] [place] Urea nitrogen [Mass/Vol] 11 mg/dL Normal 7-21 [facility] Comment on above: Order Comment: Speci men Type: BLOOD SPECIMENOrdering Facility: [facility] Address: [address] [place] [address] Performed By: #### 2 4323-8 ####[facility] LABORATORYCLIA [id number] [place] [address] [place] HISTORY PHYSICALon HISTORY PHYSICAL HNO ID: [id number] Author: AL THOMPSON MD Service: ? Author Type: Physician Type: H&P Filed: 10/20/2024 19:06 Note Text: INTERNAL MEDICINE HANDP EXAMINATION SERVICE DATE: 10/20/2024 SERVICE TIME: 6:22 PM PRIMARY CARE PHYSICIAN: Galindo Miller, HOSPICE EXECUTIVE DIRECTOR, HOSPICE EXECUTIVE DIRECTOR CHIEF COMPLAINT Recurrent encephalopathy HISTORY OF PRESENT ILLNESS HPI: Ms. Sarabia is a 84 year old female who presents with recurrent encephalopathy. Patient has PMHx of HTN, HLD, DM-2, GERD, HFpEF (LVEF 64%), and Atrial fibrillation (Eliquis). Patient came in from [place] on 10/16/2024 for recurrent mental status change, [...] hallucination. According to her , prior to [facility] admission patient was totally functional able to [...] paralysis, seizu (more content not included)... Normal [facility] NURSING PROGon 10-20-2024 NURSING PROG HNO ID: [id number] Author: RED COVINGTON RN Service: Nursing Author [...] no other needs at this time. Normal [facility] CREATININE BLDon 10-19-2024 Creatinine [Mass/Vol] 0.70 mg/dL Normal 0.58-0.96 [facility] Comment on above: Order Comment: Speci men Type: BLOOD SPECIMENOrdering Facility: [facility] Address: [address] [place] [address], [place] [address] Performed By: #### 3 024-7, CRET1, 305-0 ####[facility] LABCLIA [id number] [place] [address] [place] Creatinine and Glomerular filtration rate.predicted panel (S/P/Bld) 85 mL/min/1.73m??? Normal >=60 [facility] Comment on above: Order Comment: Speci men Type: BLOOD SPECIMENOrdering Facility: [facility] Address: [address] [place] [address] Result Comment: Roz mated Glomerular Filtration Rate [...] Performed By: #### 3 024-7, CRET1, 3050-0 ####[facility] LABCLIA [id number] [place] [address] [place] Folate [facility] 10-19-19 25 Folate [Mass/Vol] 14.7 ng/mL Normal >4.7 [facility] Comment on above: Order Comment: Speci men Type: BLOOD SPECIMENOrdering Facility: [facility] Address: [address] [place] [address] Performed By: #### 2 284-8, 2132-9 ####[facility] LABORATORYCLIA [id number] [place] [address] [place] NURSING PROGon 10-19-2024 NURSING PROG HNO ID: [id number] Author: RED COVINGTON RN Service: Nursing Author [...] no other needs at this time. Normal [facility] T3Free SerPl-mCncon 10-19-19 25 Free T3 [Mass/Vol] 2.6 pg/mL Normal 2.3-4.1 [facility] Comment on above: Order Comment: Speci men Type: BLOOD SPECIMENOrdering Facility: [facility] Address: [address] [place] [address] Performed By: #### 3 024-7, CRET1, 0 ####[facility] [id number] [place] [address] [place] T4 Free SerPl-mCncon 025 Free T4 [Mass/Vol] 1.5 ng/dL Normal 0.9-1.7 [facility] Comment on above: Order Comment: Speci gerson Type: BLOOD SPECIMENOrdering Facility: [facility] Address: [address] [place] [address] Performed By: #### 3 024-7, CRET1, 0 ####[facility] [id number] [place] [address] [place] VITAMIN B1 (THIAMINE), WHOLE BLOODon 10-19-2024 Thiamine (Bld) [Moles/Vol] 179.7 nmol/L Normal 84.3-213.3 [facility] Comment on above: Order Comment: Akilah gerson Type: BLOOD SPECIMENOrdering Facility: [facility] Address: [address] [place] [address] Result Comment: This assay measures the concentration of thiamine diphosphate (TDP), the primary active form of vitamin B1. Approximately 90 percent of vitamin B1 present in whole blood is TDP. Thiamine and thiamine monophosphate, which comprise the remaining 10 percent, are not measured. This test was developed, and its performance characteristics determined by the [facility] Department of Pathology and Laboratory Medicine. It has not been cleared or approved by the FDA. The [facility] Department of Pathology and Laboratory Medicine is regulated under CLIA as qualified to perform high-complexity testing. This test is used for clinical purposes. It should not be regarded as investigational or for research. Performed By: #### B 1WB ####[facility] LABCLIA [id number] [place] [address] [place] VITAMIN B6/PYRIDOXINon 10-19 VITAMIN B6 20.3 nmol/L Normal 20.0-125.0 [facility] Comment on above: Order Comment: Speci men Type: BLOOD SPECIMENOrdering Facility: [facility] Address: [address] [place] [address] Result Comment: INTE RPRETIVE INFORMATION: Vitamin B6 (Pyridoxal 5-Phosphate) Pyridoxal 5'-phosphate measured in a specimen collected following an 8-hour or overnight fast accurately indicates vitamin B6 nutritional status. Non-fasting specimen concentration reflects recent vitamin intake. This test was developed and its performance characteristics determined by [facility]. It has not been cleared or approved by the [place] Food and Drug Administration. This test was performed in a CLIA certified laboratory and is intended for clinical purposes. Performed By: [facility] [address] [place] [address] Sr Risk Management Consultant: Ash Worley MD, PhD [place] Number: [id number] Performed By: #### V ITB6 ####[facility] [id number] [place] [address] Vit B12 SerPl-mCncon 025 Cobalamin (Vitamin B12) [Mass/Vol] 229 pg/mL Low 232-1245 [facility] Comment on above: Order Comment: Speci men Type: BLOOD SPECIMENOrdering Facility: [facility] Address: [address] [place] [address] Performed By: #### 2 284-8, 2132-9 ####[facility] LABORATORYIA [id number] [place] [address] [place] Ammonia Plas-sCncon 10-18-19 25 Ammonia (P) [Moles/Vol] 27 umol/L Normal 11-51 [facility] Comment on above: Order Comment: Speci men Type: BLOOD SPECIMENOrdering Facility: [facility] Address: [address] [place] [address] Performed By: #### 1 6362-6 ####[facility] LABORATORYCLIA [id number] [place] [id number] [place] CONSULTon 10-18-2024 CONSULT HNO ID: [id number] Author: NED TERAN APRN.CNP Service: Gastroenterology Author Type: Nurse Practitioner Type: Consults Filed: 10/18/2024 14:07 Note Text: CONSULT: GASTROENTEROLOGY SERVICE SERVICE DATE: 10/18/2024 SERVICE TIME: 10:00 AM REASON FOR CONSULT: intermittent confusion, abdominal pain REQUESTING PHYSICIAN: Dr. Dorman PRIMARY CARE PHYSICIAN: Galindo Miller, HOSPICE EXECUTIVE DIRECTOR, HOSPICE EXECUTIVE DIRECTOR Subjective Ms. Sarabia is a 84 year old female with PMH afib(eliquis), HTN, DM-type II, and gastric/duodenal ulcers (09/2024) who presented to ED 10/16 for mental status change x 3 days, abdominal pain/distention. GI consulted for evaluation of intermittent confusion, abdominal pain. Patient initially presented to [facility] mid September 19 for altered mental status [...] EGD done for abd pain done at [facility] Mild LA grade A esophagitis Two small [...] Rfl: lidoc (more content not included)... Normal [facility] NURSING PROGon 10-18-2024 NURSING PROG HNO ID: [id number] Author: CHER CALDERON, RN Service: Nursing Author Type: Registered Nurse Type: Nursing Progress Note Filed: 10/18/2024 01:10 Note Text: Event(s) / Intervention Note: PATIENT NAME: Saeed Sarabia Patient [facility]: [place] [address] Room: [id number] The patient was observed having the following problems: Patient restless and confused attempting to pull off EEG leads and trying to get out of bed stating I'm getting out of here , patent offered toileting and accepted, patient assisted to the restroom then assisted back to bed. Continued to try to get up and pulled at lines and was unable to redirect, RN TRANSITION notified and came to the bedside. The time of the event occurred at: 0020 The following intervention(s) were initiated: Placed new order for one time dose of IV haldol, patient compliant with administration. After the initiated interventions, the following observation(s) were made: nothing further noted. Will continue to observe and check with patient.. [facility] US ABD RIGHT UPPER QUADRANTo n 10-18-2024 [...] Kidney: No hydronephrosis. Ascites: None. IMPRESSION: CHOLELITHIASIS. Supervisor Prop Making: ROSS Transcribe Date/Time: Oct 18 2024 5:04P Dictated by : YAKLEIN NICOLE MD This examination was interpreted and the report reviewed and electronically signed by: YAKELIN NICOLE MD on Oct 18 2024 5:06PM EST [id number] [facility] ALLIED HEALTHon 10-17-2024 ALLIED HEALTH HNO ID: [id number] Author: GALINDO FROST, direct of real estate Service: Radiology Author Type: Benefits Director Type: Allied Health Filed: 10/17/2024 17:47 Note [...] PATIENT PRESENTS WITH AN IMPLANTABLE OR ATTACHED BREAKER ENGINEER: No RADIOLOGY DEPARTMENT: MR; Exam(s) Completed: Head: Routine Brain PERIPHERAL IV DATA: Not applicable SIGNED BY: Galindo Frost, direct of real estate October 17, 2024 5:47 PM Normal [facility] CBC panel Auto (Bld)on 10-17 Erythrocyte distribution width (RBC) [Ratio] 13.6 % Normal 11.5-15.0 [facility] Comment on above: Order Comment: Akilah nieto Type: BLOOD SPECIMENOrdering Facility: [facility] Address: [address] [place] [address] Performed By: #### 5 8410-2 ####[facility] LABORATORYCLIA [id number] [address] [place] Hematocrit (Bld) [Volume fraction] 35.9 % Low 36.0-46.0 [facility] Comment on above: Order Comment: Akilah nieto Type: BLOOD SPECIMENOrdering Facility: [facility] Address: [address] [place] [address] Performed By: #### 5 8410-2 ####[facility] LABORATORYCLIA [id number] [address] [place] Hemoglobin (Bld) [Mass/Vol] 11.8 g/dL Normal 11.5-15.5 [facility] Comment on above: Order Comment: Akilah nieto Type: BLOOD SPECIMENOrdering Facility: [facility] Address: [address] [place] [address] Performed By: #### 5 8410-2 ####[facility] LABORATORYCLIA [id number] [place] [address] [place] MCH (RBC) [Entitic mass] 30.9 pg Normal 26.0-34.0 [facility] Comment on above: Order Comment: Speci men Type: BLOOD SPECIMENOrdering Facility: [facility] Address: [address] [place] [address] Performed By: #### 5 8410-2 ####[facility] LABORATORYCLIA [id number] [place] [address] [place] MCHC (RBC) [Mass/Vol] 32.9 g/dL Normal 30.5-36.0 [facility] Comment on above: Order Comment: Speci men Type: BLOOD SPECIMENOrdering Facility: [facility] Address: [address] [place] [address] Performed By: #### 5 8410-2 ####[facility] LABORATORYCLIA [id number] [address] [place] MCV (RBC) [Entitic vol] 94.0 fL Normal 80.0-100.0 [facility] Comment on above: Order Comment: Speci men Type: BLOOD SPECIMENOrdering Facility: [facility] Address: [address] [place] [address] Performed By: #### 5 8410-2 ####[facility] LABORATORYCLIA [id number] [place] [address] [place] Nucleated RBC (Bld) [#/Vol] 10*3/uL Normal <0.01 [facility] Comment on above: Order Comment: Speci men Type: BLOOD SPECIMENOrdering Facility: [facility] Address: [address] [place] [address] Performed By: #### 5 8410-2 ####[facility] LABORATORYCLIA [id number] [place] [address] [place] Platelet mean volume (Bld) [Entitic vol] 9.6 fL Normal 9.0-12.7 [facility] Comment on above: Order Comment: Speci men Type: BLOOD SPECIMENOrdering Facility: [facility] Address: [address] [place] [address] Performed By: #### 5 8410-2 ####[facility] LABORATORYCLIA [id number] [place] [address] [place] Platelets (Bld) [#/Vol] 246 10*3/uL Normal 150-400 [facility] Comment on above: Order Comment: Speci men Type: BLOOD SPECIMENOrdering Facility: [facility] Address: [address] [place] [address] Performed By: #### 5 8410-2 ####[facility] LABORATORYCLIA [id number] [place] [address] [place] RBC (Bld) [#/Vol] 3.82 10*6/uL Low 3.90-5.20 [facility] Comment on above: Order Comment: Speci men Type: BLOOD SPECIMENOrdering Facility: [facility] Address: [address] [place] [address] Performed By: #### 5 8410-2 ####[facility] LABORATORYCLIA [id number] [place] [address] [place] WBC (Bld) [#/Vol] 5.44 10*3/uL Normal 3.70-11.00 [facility] Comment on above: Order Comment: Speci men Type: BLOOD SPECIMENOrdering Facility: [facility] Address: [address] [place] [address] Performed By: #### 5 8410-2 ####[facility] LABORATORYCLIA [id number] [place] [address] [place] CNCOon 10-17-2024 CNCO Letter Text Normal [facility] CONSULTon 10-17-2024 CONSULT HNO ID: [id number] Author: TYLER MATA MD Service: Neurology General [...] Reflexes: Upper (more content not included)... Normal [facility] Comprehensive metabolic 2000 panelon 10-17-2024 Albumin [Mass/Vol] 3.4 g/dL Low 3.9-4.9 [facility] Comment on above: Order Comment: Speci men Type: BLOOD SPECIMENOrdering Facility: [facility] Address: [address] [place] [address] Performed By: #### 2 4323-8, 6-3, 15447-4, 76957-8 ####[facility] LABORATORYCLIA [id number] [place] [address] [place] ALP [Catalytic activity/Vol] 46 U/L Normal 34-123 [facility] Comment on above: Order Comment: Speci men Type: BLOOD SPECIMENOrdering Facility: [facility] Address: [address] [place] [id number] Performed By: #### 2 4323-8, 6-3, , 75554-6 ####[facility] LABORATORYCLIA [id number] [place] [address] [place] ALT [Catalytic activity/Vol] 17 U/L Normal 7-38 [facility] Comment on above: Order Comment: Speci men Type: BLOOD SPECIMENOrdering Facility: [facility] Address: [address] [place] [address] Performed By: #### 2 4323-8, 6-3, 65205-0, 14258-9 ####[facility] LABORATORYCLIA [id number] [place] [address] [place] Anion gap [Moles/Vol] 10 mmol/L Normal 8-15 [facility] Comment on above: Order Comment: Speci men Type: BLOOD SPECIMENOrdering Facility: [facility] Address: [address] [place] [address] Performed By: #### 2 4323-8, 3016-3, 79664-2, 91373-8 ####[facility] LABORATORYCLIA [id number] [place] [address] [place] AST [Catalytic activity/Vol] 22 U/L Normal 13-35 [facility] Comment on above: Order Comment: Speci men Type: BLOOD SPECIMENOrdering Facility: [facility] Address: [address] [place] [address] Performed By: #### 2 4323-8, 6-3, 13439-7, 75960-5 ####[facility] LABORATORYCLIA [id number] [place] [address] [place] Bilirubin [Mass/Vol] 0.3 mg/dL Normal 0.2-1.3 [facility] Comment on above: Order Comment: Speci men Type: BLOOD SPECIMENOrdering Facility: [facility] Address: [address] [place] [address] Performed By: #### 2 4323-8, 6-3, , 54917-2 ####[facility] LABORATORYCLIA [id number] [place] [address] [place] Calcium [Mass/Vol] 9.2 mg/dL Normal 8.5-10.2 [facility] Comment on above: Order Comment: Speci men Type: BLOOD SPECIMENOrdering Facility: [facility] Address: [address] [place] [address] Performed By: #### 2 4323-8, 6-3, , 86897-9 ####[facility] LABORATORYCLIA [id number] [place] [address] [place] Chloride [Moles/Vol] 102 mmol/L Normal 98-107 [facility] Comment on above: Order Comment: Speci men Type: BLOOD SPECIMENOrdering Facility: [facility] Address: [address] [place] [address] Performed By: #### 2 4323-8, 6-3, 61292-2, 77985-0 ####[facility] LABORATORYCLIA [id number] [place] [address] [place] CO2 [Moles/Vol] 28 mmol/L Normal 22-30 [facility] Comment on above: Order Comment: Speci gerson Type: BLOOD SPECIMENOrdering Facility: [facility] Address: [address] [place] [address] Performed By: #### 2 4323-8, 3016-3, 87105-7, 77668-8 ####[facility] LABORATORYCLIA [id number] [place] [address] [place] Creatinine [Mass/Vol] 0.80 mg/dL Normal 0.58-0.96 [facility] Comment on above: Order Comment: Speci men Type: BLOOD SPECIMENOrdering Facility: [facility] Address: [address] [place] [address] Performed By: #### 2 4323-8, 3016-3, , 49214-1 ####[facility] LABORATORYIA [id number] [place] [address] [place] Creatinine and Glomerular filtration rate.predicted panel (S/P/Bld) 73 mL/min/1.73m??? Normal >=60 [facility] Comment on above: Order Comment: Specnae nieto Type: BLOOD SPECIMENOrdering Facility: [facility] Address: [address] [place] [address] Result Comment: Roz mated Glomerular Filtration Rate [...] actual GFR. Performed By: #### 2 4323-8, 3016-3, 46289-4, 37782-4 ####[facility] LABORATORYCLIA [id number] [place] [address] [place] Glucose [Mass/Vol] 103 mg/dL High 74-99 [facility] Comment on above: Order Comment: Speci men Type: BLOOD SPECIMENOrdering Facility: [facility] Address: [address] [place] [address] Result Comment: The Citizen [place] Diabetes Association (ADA) provides guidance for cutoff [...] Standards of Medical Care in Diabetes 2016, Citizen [place] Diabetes Association. Diabetes Care. 2016.39(Suppl 1). Performed By: #### 2 4323-8, 6-3, 93706-5, 12466-3 ####[facility] LABORATORYCLIA [id number] [place] [address] [place] Potassium [Moles/Vol] 4.4 mmol/L Normal 3.7-5.1 [facility] Comment on above: Order Comment: Akilah nieto Type: BLOOD SPECIMENOrdering Facility: [facility] Address: [address] [place] [address] Performed By: #### 2 4323-8, 6-3, , ####[facility] LABORATORYCLIA [id number] [place] [address] [place] Protein [Mass/Vol] 5.8 g/dL Low 6.3-8.0 [facility] Comment on above: Order Comment: Akilah nieto Type: BLOOD SPECIMENOrdering Facility: [facility] Address: [address] [place] [address] Performed By: #### 2 4323-8, 6-3, , ####[facility] LABORATORYCLIA [id number] [place] [address] [place] Sodium [Moles/Vol] 140 mmol/L Normal 136-144 [facility] Comment on above: Order Comment: Speci men Type: BLOOD SPECIMENOrdering Facility: [facility] Address: [address] [place] [address] Performed By: #### 2 4323-8, 6-3, 76201-9, 55961-0 ####[facility] LABORATORYCLIA [id number] [place] [address] [place] Urea nitrogen [Mass/Vol] 10 mg/dL Normal 7-21 [facility] Comment on above: Order Comment: Speci men Type: BLOOD SPECIMENOrdering Facility: [facility] Address: [address] [place] [address] Performed By: #### 2 4323-8, 3015-3, , 04453-8 ####[facility] LABORATORYCLIA [id number] [place] [address] [place] Iron and Iron binding capaci ty panelon 10-17-2024 Iron [Mass/Vol] 74 ug/dL Normal 41-186 [facility] Comment on above: Order Comment: Speci men Type: BLOOD SPECIMENOrdering Facility: [facility] Address: [address] [place] [address] Performed By: #### 2 4323-8, 3015-3, , 18810-0 ####[facility] LABORATORYCLIA [id number] [place] [address] [place] Iron binding capacity [Mass/Vol] 235 ug/dL Normal 232-386 [facility] Comment on above: Order Comment: Speci men Type: BLOOD SPECIMENOrdering Facility: [facility] Address: [address] [place] [address] Performed By: #### 2 4323-8, 3015-3, , 47690-1 ####[facility] LABORATORYCLIA [id number] [place] [address] [place] Iron/TIBC [Molar ratio] 31.5 % Normal 20.0-55.0 [facility] Comment on above: Order Comment: Speci men Type: BLOOD SPECIMENOrdering Facility: [facility] Address: [address] [place] [address] Performed By: #### 2 4323-8, 3016-3, 71820-1, 02916-7 ####[facility] LABORATORYCLIA [id number] [place] [address] [place] MRI BRAIN WO IVCONon [...] process or mass. Chronic changes as described. Supervisor Prop Making: PSCB Transcribe Date/Time: Oct 17 2024 6:11P Dictated by : ADINA AGEE MD This examination was interpreted and the report reviewed and electronically signed by: GEOFFREY ZAYAS MD on Oct 17 2024 6:44PM EST [id number] Normal [facility] Magnesium SerPl-mCncon 10-17 Magnesium [Mass/Vol] 2.0 mg/dL Normal 1.7-2.3 [facility] Comment on above: Order Comment: Speci men Type: BLOOD SPECIMENOrdering Facility: [facility] Address: [address] [place] [address] Performed By: #### 2 4323-8, 3016-3, 24599-8, 40513-5 ####[facility] LABORATORYCLIA [id number] [address] [place] NURSING PROGon 10-17-2024 NURSING PROG HNO ID: [id number] Author: RED COVINGTON, ELFEGO Service: Nursing Author [...] no other needs at this time. Normal [facility] NUTRITIONon 10-17-2024 NUTRITION HNO ID: [id number] Author: PATIENCE COVINGTON RD Service: NST-Nutrition Support [...] October 17, 2024 TIME: 12:34 PM Normal [facility] PORPHOBILINOGEN (PBG), URINE , SCREENon 10-17-2024 PORPHOBILINOGEN (PBG), URINE, SCREEN Negative Normal Negative [facility] Comment on above: Order Comment: Speci men Type: URINE SPECIMENOrdering Facility: [facility] Address: [address] [place] [address] Result Comment: This test was developed, and its performance characteristics determined by the [facility] Department of Pathology and Laboratory Medicine. It has not been cleared or approved by the FDA. The [facility] Department of Pathology and Laboratory Medicine is regulated under CLIA as qualified to perform high-complexity testing. This test is used for clinical purposes. It should not be regarded as investigational or for research. Performed By: #### U PBG ####[facility] LABCLIA [id number] [place] [address] [place] TOXICOLOGY SCREEN, ROUTINE U RINEon 10-17-2024 Amphetamines Confirm (U) [Mass/Vol] Negative Normal Negative [facility] Comment on above: Order Comment: Speci men Type: URINE SPECIMENOrdering Facility: [facility] Address: [address] [place] [address] Result Comment: Cuto ff threshold at 1000 ng/mL. Performed By: #### U TOX2 ####[facility] LABORATORYCLIA [id number] [place] [address] [place] BARBITURATES, URINE Negative Normal Negative [facility] Comment on above: Order Comment: Speci men Type: URINE SPECIMENOrdering Facility: [facility] Address: [address] [place] [address] Result Comment: Cuto ff threshold at 200 ng/mL. Performed By: #### U TOX2 ####[facility] LABORATORYCLIA [id number] [place] [address] [place] BENZODIAZEPINES, UR Negative Normal Negative [facility] Comment on above: Order Comment: Speci men Type: URINE SPECIMENOrdering Facility: [facility] Address: [address] [place] [address] Result Comment: Cuto ff threshold at 200 ng/mL. Performed By: #### U TOX2 ####[facility] LABORATORYCLIA [id number] [place] [address] [place] Cannabinoids Screen Ql (U) Negative Normal Negative [facility] Comment on above: Order Comment: Speci men Type: URINE SPECIMENOrdering Facility: [facility] Address: [address] [place] [address] Result Comment: Cuto ff threshold at 50 ng/mL. Performed By: #### U TOX2 ####[facility] LABORATORYCLIA [id number] [place] [address] [place] Cocaine Ql (U) Negative Normal Negative [facility] Comment on above: Order Comment: Speci men Type: URINE SPECIMENOrdering Facility: [facility] Address: [address] [place] [address] Result Comment: Cuto ff threshold at 300 ng/mL. Performed By: #### U TOX2 ####[facility] LABORATORYCLIA [id number] [place] [address] [place] Ethanol (U) [Mass/Vol] <11 Normal <11 [facility] Comment on above: Order Comment: Speci men Type: URINE SPECIMENOrdering Facility: [facility] Address: [address] [place] [address] Performed By: #### U TOX2 ####[facility] LABORATORYCLIA [id number] [place] [address] [place] Opiates Screen Ql (U) Negative Normal Negative [facility] Comment on above: Order Comment: Speci men Type: URINE SPECIMENOrdering Facility: [facility] Address: [address] [place] [address] Result Comment: Cuto ff threshold at 300 ng/mL. Performed By: #### U TOX2 ####[facility] LABORATORYCLIA [id number] [place] [address] [place] oxyCODONE cutoff Screen (U) [Mass/Vol] Negative Normal Negative [facility] Comment on above: Order Comment: Speci men Type: URINE SPECIMENOrdering Facility: [facility] Address: [address] [place] [address] Result Comment: Cuto ff threshold at 100 ng/mL. Performed By: #### U TOX2 ####[facility] LABORATORYCLIA [id number] [place] [address] [facility] Phencyclidine Ql (U) Negative Normal Negative [facility] Comment on above: Order Comment: Speci men Type: URINE SPECIMENOrdering Facility: [facility] Address: [address] [place] [address] Result Comment: Cuto ff threshold at 25 ng/mL. Performed By: #### U TOX2 ####[facility] LABORATORYCLIA [id number] [address] OF [facility] TSH SerPl-aCncon 10-17-2024 TSH Qn 0.103 m[IU]/L Low 0.270-4.200 [facility] Comment on above: Order Comment: Speci men Type: BLOOD SPECIMENOrdering Facility: [facility] Address: [address] [place] [address] Performed By: #### 2 4323-8, 3016-3, 42998-0, 84793-9 ####[facility] LABORATORYCLIA [id number] [place] [address] [facility] ALLIED HEALTHon 10-16-2024 ALLIED HEALTH HNO ID: [id number] Author: WAYNE BRANHAM RDMS Service: Radiology Author Type: Laboratory Assistant Type: Allied Health Filed: 10/16/2024 16:40 Note [...] PATIENT PRESENTS WITH AN IMPLANTABLE OR ATTACHED BREAKER ENGINEER: No RADIOLOGY DEPARTMENT: Ultrasound PERIPHERAL IV DATA: Not applicable SIGNED BY: Wayne Branham RDMS October 16, 2024 4:39 PM [facility] HNO ID: [id number] Author: DULCE BURTON CT Service: Radiology Author Type: Benefits Director Type: Allied Health Filed: 10/16/2024 15:37 Note [...] PATIENT PRESENTS WITH AN IMPLANTABLE OR ATTACHED BREAKER ENGINEER: No ALLERGIES: Reviewed and unchanged CONTRAST ALLERGY: [...] DATE: October 16, 2024 TIME: 3:36 PM [facility] ALLIED HEALTH HNO ID: [id number] Author: COLBY DE JESUS RT(R) Service: Radiology [...] PATIENT PRESENTS WITH AN IMPLANTABLE OR ATTACHED BREAKER ENGINEER: No RADIOLOGY DEPARTMENT: General X-ray: Exam(s) Completed: Chest X-Ray PERIPHERAL IV DATA: Not applicable SIGNED BY: RT Mariana(R) October 16, 2024 2:19 PM [facility] CBC W Auto Differential pane l (Bld)on 10-16-2024 Basophils (Bld) [#/Vol] 10*3/uL Normal <0.11 [facility] Comment on above: Order Comment: Speci men Type: BLOOD SPECIMENOrdering Facility: [facility] Address: [address] [place] [address] Performed By: #### 5 7021-8 ####[facility] LABORATORYCLIA [id number] [place] [address] [place] Basophils/100 WBC (Bld) 0.1 % Normal [facility] Comment on above: Order Comment: Akilah nieto Type: BLOOD SPECIMENOrdering Facility: [facility] Address: [address] [place] [address] Performed By: #### 5 7021-8 ####[facility] LABORATORYCLIA [id number] [place] [address] [place] Differential cell count method Nom (Bld) Auto Normal [facility] Comment on above: Order Comment: Speci men Type: BLOOD SPECIMENOrdering Facility: [facility] Address: [address] [place] [address] Performed By: #### 5 7021-8 ####[facility] LABORATORYCLIA [id number] [place] [address] [place] Eosinophils (Bld) [#/Vol] 0.45 10*3/uL Normal <0.46 [facility] Comment on above: Order Comment: Speci men Type: BLOOD SPECIMENOrdering Facility: [facility] Address: [address] [place] [address] Performed By: #### 5 7021-8 ####[facility] LABORATORYCLIA [id number] [address] [place] Eosinophils/100 WBC (Bld) 5.5 % Normal [facility] Comment on above: Order Comment: Speci men Type: BLOOD SPECIMENOrdering Facility: [facility] Address: [address] [place] [address] Performed By: #### 5 7021-8 ####[facility] LABORATORYCLIA [id number] [place] [address] [place] Erythrocyte distribution width (RBC) [Ratio] 13.6 % Normal 11.5-15.0 [facility] Comment on above: Order Comment: Speci men Type: BLOOD SPECIMENOrdering Facility: [facility] Address: [address] [place] [address] Performed By: #### 5 7021-8 ####GRANT LABORATORYCLIA [id number] [place] [address] [place] Hematocrit (Bld) [Volume fraction] 41.4 % Normal 36.0-46.0 [facility] Comment on above: Order Comment: Speci men Type: BLOOD SPECIMENOrdering Facility: [facility] Address: [address] [place] [address] Performed By: #### 5 7021-8 ####[facility] LABORATORYCLIA [id number] [place] [address] [place] Hemoglobin (Bld) [Mass/Vol] 13.4 g/dL Normal 11.5-15.5 [facility] Comment on above: Order Comment: Speci men Type: BLOOD SPECIMENOrdering Facility: [facility] Address: [address] [place] [address] Performed By: #### 5 7021-8 ####GRANT LABORATORYCLIA [id number] [place] [address] [place] Immature granulocytes (Bld) [#/Vol] 0.03 10*3/uL Normal <0.10 [facility] Comment on above: Order Comment: Speci men Type: BLOOD SPECIMENOrdering Facility: [facility] Address: [address] [place] [address] Performed By: #### 5 7021-8 ####GRANT LABORATORYCLIA [id number] [address] Immature granulocytes/100 WBC (Bld) 0.4 % Normal [facility] Comment on above: Order Comment: Speci men Type: BLOOD SPECIMENOrdering Facility: [facility] Address: [address] [place] [address] Performed By: #### 5 7021-8 ####GRANT LABORATORYCLIA [id number] [place] [address] [place] Lymphocytes (Bld) [#/Vol] 3.33 10*3/uL Normal 1.00-4.00 [facility] Comment on above: Order Comment: Speci men Type: BLOOD SPECIMENOrdering Facility: [facility] Address: [address] [place] [address] Performed By: #### 5 7021-8 ####GRANT LABORATORYCLIA [id number] [place] [address] [place] Lymphocytes/100 WBC (Bld) 40.6 % Normal [facility] Comment on above: Order Comment: Speci men Type: BLOOD SPECIMENOrdering Facility: [facility] Address: [address] [place] [address] Performed By: #### 5 7021-8 ####GRANT LABORATORYCLIA [id number] [place] [address] [place] MCH (RBC) [Entitic mass] 29.9 pg Normal 26.0-34.0 [facility] Comment on above: Order Comment: Speci men Type: BLOOD SPECIMENOrdering Facility: [facility] Address: [address] [place] [address] Performed By: #### 5 7021-8 ####GRANT LABORATORYCLIA [id number] [place] [address] [place] MCHC (RBC) [Mass/Vol] 32.4 g/dL Normal 30.5-36.0 [facility] Comment on above: Order Comment: Speci men Type: BLOOD SPECIMENOrdering Facility: [facility] Address: [address] [place] [address] Performed By: #### 5 7021-8 ####GRANT LABORATORYCLIA [id number] [address] [place] MCV (RBC) [Entitic vol] 92.4 fL Normal 80.0-100.0 [facility] Comment on above: Order Comment: Speci men Type: BLOOD SPECIMENOrdering Facility: [facility] Address: [address] [place] [address] Performed By: #### 5 7021-8 ####GRANT LABORATORYCLIA [id number] [address] [place] Monocytes (Bld) [#/Vol] 0.50 10*3/uL Normal <0.87 [facility] Comment on above: Order Comment: Speci men Type: BLOOD SPECIMENOrdering Facility: [facility] Address: [address] [place] [address] Performed By: #### 5 7021-8 ####GRANT LABORATORYCLIA [id number] [address] Monocytes/100 WBC (Bld) 6.1 % Normal [facility] Comment on above: Order Comment: Speci men Type: BLOOD SPECIMENOrdering Facility: [facility] Address: [address] [place] [address] Performed By: #### 5 7021-8 ####GRANT LABORATORYCLIA [id number] [place] [address] [place] Neutrophils (Bld) [#/Vol] 3.89 10*3/uL Normal 1.45-7.50 [facility] Comment on above: Order Comment: Speci men Type: BLOOD SPECIMENOrdering Facility: [facility] Address: [address] [place] [address] Performed By: #### 5 7021-8 ####[facility] LABORATORYCLIA [id number] [place] [address] [place] Neutrophils/100 WBC (Bld) 47.3 % Normal [facility] Comment on above: Order Comment: Speci men Type: BLOOD SPECIMENOrdering Facility: [facility] Address: [address] [place] [address] Performed By: #### 5 7021-8 ####[facility] LABORATORYCLIA [id number] [place] [address] [place] Nucleated RBC (Bld) [#/Vol] 10*3/uL Normal <0.01 [facility] Comment on above: Order Comment: Speci men Type: BLOOD SPECIMENOrdering Facility: [facility] Address: [address] [place] [address] Performed By: #### 5 7021-8 ####[facility] LABORATORYCLIA [id number] [place] [address] [place] Nucleated RBC/100 WBC (Bld) [Ratio] 0.0 /100 WBC Normal [facility] Comment on above: Order Comment: Speci men Type: BLOOD SPECIMENOrdering Facility: [facility] Address: [address] [place] [address] Performed By: #### 5 7021-8 ####[facility] LABORATORYCLIA [id number] [place] [address] [place] Platelet mean volume (Bld) [Entitic vol] 9.9 fL Normal 9.0-12.7 [facility] Comment on above: Order Comment: Speci men Type: BLOOD SPECIMENOrdering Facility: [facility] Address: [address] [place] [address] Performed By: #### 5 7021-8 ####SCRANTON LABORATORYCLIA [id number] [place] [address] [facility] [place] Platelets (Bld) [#/Vol] 288 10*3/uL Normal 150-400 [facility] Comment on above: Order Comment: Speci men Type: BLOOD SPECIMENOrdering Facility: [facility] Address: [address] [place] [address] Performed By: #### 5 7021-8 ####SCRANTON LABORATORYCLIA [id number] [place] [address] [facility] [place] RBC (Bld) [#/Vol] 4.48 10*6/uL Normal 3.90-5.20 [facility] Comment on above: Order Comment: Speci men Type: BLOOD SPECIMENOrdering Facility: [facility] Address: [address] [place] [address] Performed By: #### 5 7021-8 ####SCRANTON LABORATORYCLIA [id number] [place] [address] [facility] [place] WBC (Bld) [#/Vol] 8.21 10*3/uL Normal 3.70-11.00 [facility] Comment on above: Order Comment: Speci men Type: BLOOD SPECIMENOrdering Facility: [facility] Address: [address] [place] [address] Performed By: #### 5 7021-8 ####SCRANTON LABORATORYCLIA [id number] [place] [address] [facility] CNOVon 10-16-2024 CNOV Office Visit (EXPNOL ) SAEED SARABIA ([id number]) 1940 F Date Time Provider Department 10/16/24 11:55 AM BRIANA SCHWARZ EXPNOL During your visit today, we recorded the following information about you: Temperature Pulse Respiration Blood pressure 99.3 degrees 76/minute 18/minute 156/61 Briana Schwarz PA-C 10/16/2024 12:57 PM Signed [facility] October 16, 2024 Saeed Sarabia 1940 Patient presents with: Abdominal Pain: X6 wks on and off, change in mental status x3 days Was recently treated for uti getting better then abd pain and admitted to [place] and then transferred to [place] and admitted for a week with gall [...] to ER due to the limitations of [facility] testing capabilities. The patient verbalized understanding and denies questions. Patient transported to Emergency Department by who refused transport Abd exam with lower abd pain no guarding no masses no rebound. The patient refused transfer to ER by ambulance. The patient was accompanied by and states that they feel safe to self transport. Advised of possible risks. Report called Briana Schwarz PA-C [facility] Referring Provider: SELF [200] Allergies [...] Encounter Status:Closed by BRIANA SCHWARZ on 10/16/[address] [facility] [address] ABD/PEL W IVCONon 01-08-[address] ABD/PEL W IVCON * * [...] Recommendation: US FEMALE PELVIS NON-OB NON TORSION ([id number]) Time Frame: At the discretion of the clinical team. COMMUNICATION: Results will be communicated with the ordering provider via [employer] staff message or phone message by [employer] within 2 business days of report finalization. --END OF FINDING-- Supervisor Prop Making: ROSS Transcribe Date/Time: Oct 16 2024 3:53P Dictated by : YUKI FRAGOSO MD This examination was interpreted and the report reviewed and electronically signed by: YUKI FRAGOSO MD on Oct 16 2024 4:13PM EST [id number] [id number] Invalid Interpretation Code [facility] Comprehensive metabolic 2000 panelon 10-16-2024 Albumin [Mass/Vol] 4.1 g/dL Normal 3.9-4.9 [facility] Comment on above: Order Comment: Speci men Type: BLOOD SPECIMENOrdering Facility: [facility] Address: [address] [place] [address] Performed By: #### 2 432-8, ####SCRANTON LABORATORYCLIA [id number] [place] [address] [place] ALP [Catalytic activity/Vol] 56 U/L Normal 34-123 [facility] Comment on above: Order Comment: Speci men Type: BLOOD SPECIMENOrdering Facility: [facility] Address: [address] [place] [address] Performed By: #### 2 4323-05, ####SCRANTON LABORATORYCLIA [id number] [place] [address] [place] ALT [Catalytic activity/Vol] 17 U/L Normal 7-38 [facility] Comment on above: Order Comment: Speci men Type: BLOOD SPECIMENOrdering Facility: [facility] Address: [address] [place] [address] Performed By: #### 2 43212-14, ####SCRANTON LABORATORYCLIA [id number] [place] [address] [place] Anion gap [Moles/Vol] 22 mmol/L High 8-15 [facility] Comment on above: Order Comment: Speci men Type: BLOOD SPECIMENOrdering Facility: [facility] Address: [address] [place] [id number] Performed By: #### 2 8, ####[facility] LABORATORYCLIA [id number] [place] [address] [place] AST [Catalytic activity/Vol] 24 U/L Normal 13-35 [facility] Comment on above: Order Comment: Speci men Type: BLOOD SPECIMENOrdering Facility: [facility] Address: [facility] [place] [address] Performed By: #### 2 4323-05, ####[facility] LABORATORYCLIA [id number] [place] [address] [place] Bilirubin [Mass/Vol] 0.4 mg/dL Normal 0.2-1.3 [facility] Comment on above: Order Comment: Speci men Type: BLOOD SPECIMENOrdering Facility: [facility] Address: [facility] [place] [address] Performed By: #### 2 4323-05, ####[facility] LABORATORYCLIA [id number] [place] [address] [place] Calcium [Mass/Vol] 9.7 mg/dL Normal 8.5-10.2 [facility] Comment on above: Order Comment: Speci men Type: BLOOD SPECIMENOrdering Facility: [facility] Address: [facility] [place] [address] Performed By: #### 2 4323-05, ####GRANT LABORATORYCLIA [id number] [place] [address] [place] Chloride [Moles/Vol] 96 mmol/L Low 98-107 [facility] Comment on above: Order Comment: Speci men Type: BLOOD SPECIMENOrdering Facility: [facility] Address: [facility] [place] [id number] Performed By: #### 2 4322-8, ####[facility] LABORATORYCLIA [id number] [place] [address] [place] CO2 [Moles/Vol] 19 mmol/L Low 22-30 [facility] Comment on above: Order Comment: Speci men Type: BLOOD SPECIMENOrdering Facility: [facility] Address: [address] [place] [address] Performed By: #### 2 4323-8, ####[facility] LABORATORYCLIA [id number] [place] [address] [place] Creatinine [Mass/Vol] 0.83 mg/dL Normal 0.58-0.96 [facility] Comment on above: Order Comment: Specnae men Type: BLOOD SPECIMENOrdering Facility: [facility] Address: [address] [place] [address] Performed By: #### 2 4323-8, ####[facility] LABORATORYCLIA [id number] [place] [address] [place] Creatinine and Glomerular filtration rate.predicted panel (S/P/Bld) 70 mL/min/1.73m??? Normal >=60 [facility] Comment on above: Order Comment: Akilah nieto Type: BLOOD SPECIMENOrdering Facility: [facility] Address: [address] [place] [address] Result Comment: Roz mated Glomerular Filtration Rate [...] Performed By: #### 2 4323-8, ####GRANT LABORATORYCLIA [id number] [place] [address] [place] Glucose [Mass/Vol] 127 mg/dL High 74-99 [facility] Comment on above: Order Comment: Akilah gerson Type: BLOOD SPECIMENOrdering Facility: [facility] Address: [address] [place] [address] Result Comment: The [place] Diabetes Association (ADA) provides guidance for cutoff [...] Standards of Medical Care in Diabetes 2016, [place] Diabetes Association. Diabetes Care. 2016.39(Suppl 1). Performed By: #### 2 43212-14, ####GRANT LABORATORYCLIA [id number] [place] [address] [place] Potassium [Moles/Vol] 4.4 mmol/L Normal 3.7-5.1 [facility] Comment on above: Order Comment: Speci men Type: BLOOD SPECIMENOrdering Facility: [facility] Address: [address] [place] [address] Performed By: #### 2 4323-05, ####[facility] LABORATORYCLIA [id number] [place] [address] [place] Protein [Mass/Vol] 7.3 g/dL Normal 6.3-8.0 [facility] Comment on above: Order Comment: Speci men Type: BLOOD SPECIMENOrdering Facility: [facility] Address: [address] [place] [address] Performed By: #### 2 43212-14, ####GRANT LABORATORYCLIA [id number] [place] [address] [place] Sodium [Moles/Vol] 137 mmol/L Normal 136-144 [facility] Comment on above: Order Comment: Speci men Type: BLOOD SPECIMENOrdering Facility: [facility] Address: [address] [place] [address] Performed By: #### 2 43212-14, ####[facility] LABORATORYCLIA [id number] [place] [address] [place] Urea nitrogen [Mass/Vol] 12 mg/dL Normal 7-21 [facility] Comment on above: Order Comment: Speci men Type: BLOOD SPECIMENOrdering Facility: [facility] Address: [address] [place] [address] Performed By: #### 2 4323-8, 39799-8 ####GRANT LABORATORYCLIA [id number] [place] [address] [place] ECG COMPLETEon 10-16-2024 ECG COMPLETE Ventricular Rate : 7 6 BPM Atrial Rate : 77 BPM P-R Interval : 113 ms QRS Duration : 146 ms Q-T Interval : 413 ms QTC Calculation(Bazett) : 465 ms Calculated P [place] : 97 degrees Calculated R [place] : -42 degrees Calculated T [place] : 100 degrees Sinus rhythm Atrial premature complex Borderline short TN interval Left bundle branch block Abnormal ECG No Stemi Confirmed by JASON SAGASTUME MD ([id number]) on 10/16/2024 4:13:30 PM NAME : SAEED SARABIA PID : [id number] : 1940 Gender : Female Race : ORD : [id number] Procedure Date : Oct 16 2024 13:36:17 Edit Date : Oct 16 2024 16:13:35 Diagnosis: Sinus rhythm Atrial premature complex Borderline short TN interval Left bundle branch block Abnormal ECG No Stemi Confirmed by JASON SAGASTUME MD ([id number]) on 10/16/2024 4:13:30 PM Test Reason : Chest Pain Location : 402 : FVED [id number] Overread By : JASON SAGASTUME MD Edited By : JASON SAGASTUME MD Referred By : , Acquired by : [id number], [facility] ED NOTEon 10-16-2024 ED NOTE HNO ID: [id number] Author: TRUMAN SUBRAMANIAN RN Service: ? Author Type: Registered Nurse Type: ED Notes Filed: 10/16/2024 13:29 Note Text: Bed: 08-ED Expected date: 10/16/24 Expected time: 12:55 PM Means of arrival: [place] [facility] Comments: 84F confusion x 3 days per spouse From AANDox2 169/96, 88, 96%, BGL 135 +IV prenotification [facility] ED PROV NOTEon 10-16-2024 ED PROV NOTE HNO ID: [id number] Author: EVER KEENE DO Service: ? Author Type: Physician Type: ED Provider Notes Filed: 10/16/2024 17:34 Note Text: ED CONTINUATION OF CARE NOTE Code Status: Prior Assumed care from: Dr. Sagatsume Presentation / Findings / Interventions / Plan [...] current altered mentation. I did review her [facility] note which did show that she had an MRI scan of her head which did show chronic microvascular changes with nothing acute. Patient will be admitted to the CDU for further management of her altered mentation. SIGNATURE: Ever Keene DO PATIENT NAME: Saeed Sarabia DATE: October 16, 2024 TIME: 4:04 PM PAGER/CONTACT #: EVER KEENE 10/16/24 1734 [facility] ED PROV NOTE HNO ID: [id number] Author: JASON SAGASTUME DO Service: Emergency Medicine Author Type: Physician Type: ED Provider Notes Filed: 10/16/2024 16:14 Note Text: ED Provider Note Patient Name: Saeed Sarabia : 1940 SERVICE DATE: 10/16/24 History Patient presents with: Mental Status Changes: overnight associate the past 3+ days per family. Abdominal Pain: Distention noted problems with abdominal pain and pressure for some time. Sent By Md: [facility] ED for further eval HPI Patient is an 84-year-old female who presents with altered mental status. Brought in by family. Increasing confusion over the past few days. Patient was recently hospitalized in [place] for abdominal pain, confusion. Encephalopathy of unclear [...] in by . Patient was admitted to [place] in September for similar presentation, no source [...] At this time will obtain CT to [facility] (more content not included)... Normal [facility] ED PROV NOTE HNO ID: [id number] Author: BRIANNA RASMUSSEN DO Service: Emergency Medicine Author Type: Physician Type: ED Provider Notes Filed: 10/16/2024 12:53 Note Text: ED E-CONSULT PROVIDER TO PROVIDER NOTE SERVICE DATE: 10/16/2024 PATIENT LOCATION: [facility] SERVICE TIME: 12:49 PM REQUESTING PROVIDER: Briana Schwarz PA-C REQUESTING LOCATION: [facility] CONSULTING SERVICE: Emergency Services I am being asked to provide an opinion on management for Saeed who is a 84 year old female. ASSESSMENT Recent treatment for UTI end of August Admitted to [facility] in September Increased confusion x 3 days, disoriented No N/V + lower abd pain From chart review from OSH admission: Hospital course: 83yoF who was admitted from [place] to [facility] on 09/17 for concern for cholecystitis. Patient was seen at [place] ED for abdominal pain and AMS. CT head was unremarkable but CT Abd showed signs concerning for cholecystitis with the presence of cholelithiasis. She was transferred to [facility] with General Surgery evaluation. HIDA was negative [...] the requesting team. The patient or patient's field support representative consented to e-consultation. SIGNATURE: Brianna Rasmussen DO PATIENT NAME: Saeed Sarabia DATE: October 16, 2024 TIME: 12:49 PM I have communicated my name and active licensure. The patient's identity and physical location were verified at the time of this visit. Either the patient or their legal field support representative has been informed of the risks and benefits of -- and alternatives to -- treatment through a remote evaluation and consents to proceed with the evaluation remotely. BRIANNA RASMUSSEN 10/16/24 1253 Normal [facility] HISTORY PHYSICALon HISTORY PHYSICAL HNO ID: [id number] Author: SUSAN SPRAGUE PA-C Service: General Internal Medicine Author Type: Physician Music Internship Type: H&P Filed: 10/17/2024 05:17 Note Text: Department of Internal Medicine HISTORY AND PHYSICAL EXAMINATION SERVICE DATE: 10/16/2024 SERVICE TIME: 8:20 PM PRIMARY CARE PHYSICIAN: Galindo Miller, HOSPICE EXECUTIVE DIRECTOR, HOSPICE EXECUTIVE DIRECTOR CONTACT COVERAGE: See Treatment Team and contact assigned BLAYNE. If no BLAYNE assigned: -5N/5W/5PAV/6th floor/2S or ED Hold, [facility] Team A: [phone] -[facility] or [facility], [facility] Team B: [phone] Subjective CHIEF COMPLAINT: Altered Mental Status HPI: [...] in this time. She was admitted to [facility] on 09/17 for concern for cholecystitis where [...] Abdomen is (more content not included)... Normal [facility] Magnesium SerPl-mCncon 10-16 Magnesium [Mass/Vol] 1.6 mg/dL Low 1.7-2.3 [facility] Comment on above: Order Comment: Speci men Type: BLOOD SPECIMENOrdering Facility: [facility] Address: [address] [place] [address] Performed By: #### 2 4323-8, 33674-8 ####SCRANTON LABORATORYCLIA [id number] [place] [address] [place] US DVT LOWER RTon 10-16-2024 US DVT LOWER RT * * *Final Report* * * DATE OF EXAM: Oct 16 2024 4:47PM [facility] 1007 - US DVT LOWER RT / [...] imaged segments of the right lower extremity. Supervisor Prop Making: ROSS Transcribe Date/Time: Oct 16 2024 4:56P Dictated by : CLARY HUERTAS MD This examination was interpreted and the report reviewed and electronically signed by: CLARY HUERTAS MD on Oct 16 2024 5:07PM EST [id number] Normal [facility] Urinalysis complete panel (U )on 10-16-2024 Bilirubin Ql (U) Negative Normal Negative [facility] Comment on above: Order Comment: Speci men Type: URINE SPECIMENOrdering Facility: [facility] Address: [address] [place] [address] Performed By: #### 2 4356-8 ####SCRANTON LABORATORYCLIA [id number] [place] [address] [place] Clarity (Unsp spec) Clear Normal Clear [facility] Comment on above: Order Comment: Speci men Type: URINE SPECIMENOrdering Facility: [facility] Address: [address] [place] [address] Performed By: #### 2 4356-8 ####[facility] LABORATORYCLIA [id number] [place] [address] [place] Color (U) Light Yellow Normal Yellow [facility] Comment on above: Order Comment: Speci men Type: URINE SPECIMENOrdering Facility: [facility] Address: [address] [place] [address] Performed By: #### 2 4356-8 ####GRANT LABORATORYCLIA [id number] [address] Epithelial cells LM.HPF (Urine sed) [#/Area] Few Normal [facility] Comment on above: Order Comment: Speci men Type: URINE SPECIMENOrdering Facility: [facility] Address: [address] [place] [address] Performed By: #### 2 4356-8 ####GRANT LABORATORYCLIA [id number] [address] [place] Glucose Test strip (U) [Mass/Vol] Negative Normal Trace, Negative [facility] Comment on above: Order Comment: Speci men Type: URINE SPECIMENOrdering Facility: [facility] Address: [address] [place] [address] Performed By: #### 2 4356-8 ####[facility] LABORATORYCLIA [id number] [address] [place] Hemoglobin Ql (U) Negative Normal Negative, Trace [facility] Comment on above: Order Comment: Speci men Type: URINE SPECIMENOrdering Facility: [facility] Address: [address] [place] [address] Performed By: #### 2 4356-8 ####[facility] LABORATORYCLIA [id number] [address] [place] Hyaline casts (Urine sed) [#/Area] 1-3 /LPF Abnormal 0 /LPF [facility] Comment on above: Order Comment: Speci men Type: URINE SPECIMENOrdering Facility: [facility] Address: [address] [place] [address] Performed By: #### 2 4356-8 ####[facility] LABORATORYCLIA [id number] [address] STATES [facility] Ketones Ql (U) Negative Normal Negative, Trace [facility] Comment on above: Order Comment: Speci men Type: URINE SPECIMENOrdering Facility: [facility] Address: [address] [place] [address] Performed By: #### 2 4356-8 ####[facility] LABORATORYCLIA [id number] [address] [place] Leukocyte esterase Test strip Ql (U) Negative Normal Negative, 25 Oh/uL [facility] Comment on above: Order Comment: Speci men Type: URINE SPECIMENOrdering Facility: [facility] Address: [address] [place] [address] Performed By: #### 2 4356-8 ####[facility] LABORATORYCLIA [id number] [place] [address] [place] Nitrite Ql (U) Negative Normal Negative [facility] Comment on above: Order Comment: Speci men Type: URINE SPECIMENOrdering Facility: [facility] Address: [address] [place] [address] Performed By: #### 2 4356-8 ####[facility] LABORATORYCLIA [id number] [place] [address] [place] pH (U) 6.0 [pH] Normal 5.0-8.0 [facility] Comment on above: Order Comment: Speci men Type: URINE SPECIMENOrdering Facility: [facility] Address: [address] [place] [address] Performed By: #### 2 4356-8 ####[facility] LABORATORYCLIA [id number] [place] [address] [place] Protein (U) [Mass/Vol] Negative Normal Trace , Negative [facility] Comment on above: Order Comment: Speci men Type: URINE SPECIMENOrdering Facility: [facility] Address: [address] [place] [address] Performed By: #### 2 4356-8 ####[facility] LABORATORYCLIA [id number] [place] [address] [place] RBC LM.HPF (Urine sed) [#/Area] 0-3 /HPF Normal 0-3 /HPF [facility] Comment on above: Order Comment: Speci men Type: URINE SPECIMENOrdering Facility: [facility] Address: [address] [place] [address] Performed By: #### 2 4356-8 ####[facility] LABORATORYCLIA [id number] [address] Specific gravity (U) [Rel density] 1.010 Normal 1.005-1.030 [facility] Comment on above: Order Comment: Speci men Type: URINE SPECIMENOrdering Facility: [facility] Address: [address] [place] [address] Performed By: #### 2 4356-8 ####[facility] LABORATORYCLIA [id number] [place] [id number] [place] Urobilinogen Ql (U) Normal Normal Normal [facility] Comment on above: Order Comment: Speci men Type: URINE SPECIMENOrdering Facility: [facility] Address: [address] [place] [address] Performed By: #### 2 4356-8 ####[facility] LABORATORYCLIA [id number] [place] [address] [place] WBC LM.HPF (Urine sed) [#/Area] 0-5 /HPF Normal 0-5 /HPF [facility] Comment on above: Order Comment: Speci men Type: URINE SPECIMENOrdering Facility: [facility] Address: [address] [place] [address] Performed By: #### 2 4356-8 ####[facility] LABORATORYCLIA [id number] [address] [place] XR CHEST 1V FRONTAL [...] PATCHY BIBASILAR ATELECTASIS/INFILTRATE , NEW SINCE 03/28/2022 Supervisor Prop Making: ROSS Transcribe Date/Time: Oct 16 2024 3:06P Dictated by : YAKELIN NICOLE MD This examination was interpreted and the report reviewed and electronically signed by: YAKELIN NICOLE MD on Oct 16 2024 3:06PM EST [id number] Normal [facility] 30on 09-21-2024 30 The patient is [...] and maintained or improved Outcome: Progressing Normal [facility] 30 Daily Case Managemen t Update Multidisciplinary [...] further OTM needs identified at this time. [facility] will continue to follow patient [...] OT? Answer: Evaluate and treat 09/17/242216 Normal [facility] CBC WITH AUTO DIFFERENTIALon 09-21-2024 Basophils (Bld) [#/Vol] 0.03 10*3/uL Normal 0.00-0.20 [facility] Comment on above: Performed By: #### L [id number] #### [facility] [address] [place] [address] [facility] Basophils/100 WBC (Bld) 0.4 % Normal 0.0-1.0 [facility] Comment on above: Performed By: #### L [id number] #### [facility] [address] [place] [address] [facility] Eosinophils (Bld) [#/Vol] 0.18 10*3/uL Normal 0.00-0.50 [facility] Comment on above: Performed By: #### L [id number] #### [facility] [address] [place] [address] [place] Eosinophils/100 WBC (Bld) 2.3 % Normal 0.0-6.0 [facility] Comment on above: Performed By: #### L [id number] #### [facility] [address] [place] [address] [facility] Erythrocyte distribution width (RBC) [Ratio] 13.2 % Normal 11.5-15.0 [facility] Comment on above: Performed By: #### L [id number] #### [facility] [address] [place], [place] [address] ERYTHROCYTE MEAN CORPUSCULAR HEMOGLOBIN CONCENTRATION (G/DL) BY AUTOMATED 31.7 g/dL Low 32.0-35.0 [facility] Comment on above: Performed By: #### L [id number] #### [facility] [address] [place] [address] [facility] Hematocrit (Bld) [Volume fraction] 38.8 % Normal 36.0-48.0 [facility] Comment on above: Performed By: #### L [id number] #### [facility] [address] [place] [address] [place] Hemoglobin (Bld) [Mass/Vol] 12.3 g/dL Normal 12.0-15.0 [facility] Comment on above: Performed By: #### L [id number] #### [facility] [address] [place] [address] [place] Immature granulocytes (Bld) [#/Vol] 0.03 10*3/uL Normal 0.00-0.20 [facility] Comment on above: Performed By: #### L [id number] #### [facility] [address] [place] [address] [place] Immature granulocytes/100 WBC (Bld) 0.4 % Normal 0.0-1.0 [facility] Comment on above: Performed By: #### L [id number] #### [facility] [address] Lymphocytes (Bld) [#/Vol] 2.57 10*3/uL Normal 1.20-4.00 [facility] Comment on above: Performed By: #### L [id number] #### [facility] [address] Lymphocytes/100 WBC (Bld) 33.2 % Normal 20.0-45.0 [facility] Comment on above: Performed By: #### L [id number] #### [facility] [address] MCH (RBC) [Entitic mass] 29.9 pg Normal 27.0-33.0 [facility] Comment on above: Performed By: #### L [id number] #### [facility] [address] MCV (RBC) [Entitic vol] 94.2 fL Normal 82.0-98.0 U [facility] Comment on above: Performed By: #### L [id number] #### [facility] [address] Monocytes (Bld) [#/Vol] 0.74 10*3/uL Normal 0.10-1.00 [facility] Comment on above: Performed By: #### L [id number] #### [facility] [address] Monocytes/100 WBC (Bld) 9.6 % Normal 5.0-12.0 U [facility] Comment on above: Performed By: #### L [id number] #### [facility] [address] Neutrophils (Bld) [#/Vol] 4.21 10*3/uL Normal 1.60-7.60 [facility] Comment on above: Performed By: #### L [id number] #### [facility] [address] [place] [address] [place] Neutrophils/100 WBC (Bld) 54.5 % Normal 40.0-72.0 [facility] Comment on above: Performed By: #### L [id number] #### [facility] [address] [place] [address] [place] NRBC (PER 100 WBCS) BY AUTOMATED COUNT 0.0 % Normal 0 [facility] Comment on above: Performed By: #### L [id number] #### [facility] [address] [place] [address] [place] PLATELETS (10*3/UL) IN BLOOD AUTOMATED COUNT 289 10*3/uL Normal 150-400 [facility] Comment on above: Performed By: #### L [id number] #### [facility] [address] [place] [address] [facility] RBC (Bld) [#/Vol] 4.12 10*6/uL Normal 3.80-5.[address] [facility] Comment on above: Performed By: #### L [id number] #### [facility] [address] [place] [address] [place] WBC (Bld) [#/Vol] 7.73 10*3/uL Normal 4.00-10.[address] [facility] Comment on above: Performed By: #### L [id number] #### [facility] [address] [place] [address] [place] COMPREHENSIVE METABOLIC PANE Sadiq 09-21-2024 Albumin [Mass/Vol] 3.5 g/dL Normal 3.5-5.7 [facility] Comment on above: Performed By: #### L [id number] ####[facility] ([facility])[address] [place] [address] ALP [Catalytic activity/Vol] 45 U/L Normal 34-104 [facility] Comment on above: Performed By: #### L [id number] ####[facility] (BEAKER)[address] [place] [address] ALT [Catalytic activity/Vol] 25 U/L Normal 7-52 [facility] Comment on above: Performed By: #### L [id number] ####[facility] ([facility])[address] [place] [address] Anion gap [Moles/Vol] 12 mmol/L Normal 7-20 [facility] Comment on above: Performed By: #### L [id number] ####[facility] ([facility]ER)[address] [place] [address] AST [Catalytic activity/Vol] 31 U/L Normal 13-39 [facility] Comment on above: Performed By: #### L [id number] ####[facility] ([facility])[address] [place] [address] Bilirubin [Mass/Vol] 0.5 mg/dL Normal 0.3-1.0 [facility] Comment on above: Performed By: #### L [id number] ####[facility] (BEAKER)[address] [place] [address] Calcium [Mass/Vol] 8.7 mg/dL Normal 8.6-10.3 [facility] Comment on above: Performed By: #### L [id number] ####[facility] ([facility]ER)[address] [place] [address] Chloride [Moles/Vol] 104 mmol/L Normal 98-107 [facility] Comment on above: Performed By: #### L [id number] ####[facility] ([facility]ER)[address] [place] [address] CO2 [Moles/Vol] 26 mmol/L Normal 21-31 [facility] Comment on above: Performed By: #### L [id number] ####[facility] ([facility]ER)[address] [place] [address] Creatinine [Mass/Vol] 1.00 mg/dL Normal 0.60-1.20 [facility] Comment on above: Performed By: #### L [id number] ####[facility] ([facility]ER)[address] [place] [address] GLOMERULAR FILTRATION RATE ML/MIN/1.73 SQ M.PREDICTED 55.9 mL/min/1.73m*2 Low >60.0 [facility] Comment on above: Result Comment: The [facility]???s estimated glomerular filtration rate (eGFR) will no [...] of individuals. Performed By: #### L [id number] ####[facility] ([facility])[address] [place] [address] Glucose [Mass/Vol] 131 mg/dL High 70-100 [facility] Comment on above: Performed By: #### L [id number] ####[facility] ([facility])[address] [place] [address] Potassium [Moles/Vol] 4.4 mmol/L Normal 3.5-5.1 [facility] Comment on above: Performed By: #### L [id number] ####[facility] ([facility])[address] [place] [address] Protein [Mass/Vol] 5.9 g/dL Low 6.0-8.3 [facility] Comment on above: Performed By: #### L [id number] ####[facility] ([facility] [place] [address] Sodium [Moles/Vol] 138 mmol/L Normal 136-145 [facility] Comment on above: Performed By: #### L [id number] ####[facility] ([facility])[address] [place] [address] Urea nitrogen [Mass/Vol] 15 mg/dL Normal 7-25 [facility] Comment on above: Performed By: #### L [id number] ####[facility] ([facility])[address] [place] [address] UREA NITROGEN/CREATININE (MASS RATIO) IN SER/PLAS 15.0 Normal [facility] Comment on above: Performed By: #### L [id number] ####[facility] ([facility])[address] [place] [address] POCT GLUCOSE METER UNSOLICIT ED RESULTSon 09-21-2024 Glucose [Mass/Vol] 182 mg/dL High 70-105 [facility] Comment on above: Order Comment: Waive d Testing in the ED is performed under the ED CLIA certificate #[id number]. Result Comment: srab ee Performed By: #### L [id number] ####[facility] ([facility])[address] [place] [address] Glucose [Mass/Vol] 114 mg/dL High 70-105 [facility] Comment on above: Order Comment: Waive d Testing in the ED is performed under the ED CLIA certificate #[id number]. Result Comment: srab ee Performed By: #### L [id number] #### [facility] ([facility]) [address] [place] [address] 30on 09-20-2024 30 The patient is Moderately [...] Skin integrity remains intact Outcome: Progressing Normal [facility] CBC WITH AUTO DIFFERENTIALon 09-20-2024 Basophils (Bld) [#/Vol] 0.03 10*3/uL Normal 0.00-0.20 [facility] Comment on above: Performed By: #### L [id number] ####[facility] ([facility])[address] [place] [address] Basophils/100 WBC (Bld) 0.4 % Normal 0.0-1.0 [facility] Comment on above: Performed By: #### L [id number] ####[facility] (BEAKER)[address] [place] [address] Eosinophils (Bld) [#/Vol] 0.12 10*3/uL Normal 0.00-0.50 [facility] Comment on above: Performed By: #### L [id number] ####[facility] ([facility])[address] [place] [address] Eosinophils/100 WBC (Bld) 1.6 % Normal 0.0-6.0 [facility] Comment on above: Performed By: #### L [id number] ####[facility] ([facility])[address] [place] [address] Erythrocyte distribution width (RBC) [Ratio] 13.4 % Normal 11.5-15.0 [facility] Comment on above: Performed By: #### L [id number] ####[facility] ([facility])[address] [place] [address] ERYTHROCYTE MEAN CORPUSCULAR HEMOGLOBIN CONCENTRATION (G/DL) BY AUTOMATED 32.0 g/dL Normal 32.0-35.0 [facility] Comment on above: Performed By: #### L [id number] ####[facility] ([facility])[address] [place] [address] Hematocrit (Bld) [Volume fraction] 39.7 % Normal 36.0-48.0 [facility] Comment on above: Performed By: #### L [id number] ####[facility] (BEAKER)[address] [place] [address] Hemoglobin (Bld) [Mass/Vol] 12.7 g/dL Normal 12.0-15.0 [facility] Comment on above: Performed By: #### L [id number] ####[facility] (BEAKER)[address] [place] [address] Immature granulocytes (Bld) [#/Vol] 0.04 10*3/uL Normal 0.00-0.20 [facility] Comment on above: Performed By: #### L [id number] ####[facility] ([facility])[address] [facility] [place] [address] Immature granulocytes/100 WBC (Bld) 0.5 % Normal 0.0-1.0 [facility] Comment on above: Performed By: #### L [id number] ####[facility] ([facility])[address] [place] [address] Lymphocytes (Bld) [#/Vol] 1.74 10*3/uL Normal 1.20-4.00 [facility] Comment on above: Performed By: #### L [id number] ####[facility] ([facility])[address] [place] [address] Lymphocytes/100 WBC (Bld) 22.6 % Normal 20.0-45.0 [facility] Comment on above: Performed By: #### L [id number] ####[facility] ([facility])[address] [place] [address] MCH (RBC) [Entitic mass] 30.0 pg Normal 27.0-33.0 [facility] Comment on above: Performed By: #### L [id number] ####[facility] ([facility])[address] [place] [address] MCV (RBC) [Entitic vol] 93.6 fL Normal 82.0-98.0 U [facility] Comment on above: Performed By: #### L [id number] ####[facility] ([facility])[address] [facility] [place] [address] Monocytes (Bld) [#/Vol] 0.73 10*3/uL Normal 0.10-1.00 [facility] Comment on above: Performed By: #### L [id number] ####[facility] ([facility])[address] [place] [address] Monocytes/100 WBC (Bld) 9.5 % Normal 5.0-12.0 U [facility] Comment on above: Performed By: #### L [id number] ####[facility] ([facility])[address] [place] [address] Neutrophils (Bld) [#/Vol] 5.08 10*3/uL Normal 1.60-7.60 [facility] Comment on above: Performed By: #### L [id number] ####[facility] ([facility])[address] [place] [address] Neutrophils/100 WBC (Bld) 65.9 % Normal 40.0-72.0 [facility] Comment on above: Performed By: #### L [id number] ####[facility] ([facility])[address] [place] [address] NRBC (PER 100 WBCS) BY AUTOMATED COUNT 0.0 % Normal 0 [facility] Comment on above: Performed By: #### L [id number] ####[facility] ([facility])[address] [place] [address] PLATELETS (10*3/UL) IN BLOOD AUTOMATED COUNT 286 10*3/uL Normal 150-400 [facility] Comment on above: Performed By: #### L [id number] ####[facility] ([facility])[address] [place] [address] RBC (Bld) [#/Vol] 4.24 10*6/uL Normal 3.80-5.[address] [facility] Comment on above: Performed By: #### L [id number] ####[facility] ([facility])[address] [place] [address] WBC (Bld) [#/Vol] 7.70 10*3/uL Normal 4.00-10.[address] [facility] Comment on above: Performed By: #### L [id number] ####[facility] ([facility])[address] [place] [address] COMPREHENSIVE METABOLIC PANE Sadiq 09-20-2024 Albumin [Mass/Vol] 3.7 g/dL Normal 3.5-5.7 [facility] Comment on above: Performed By: #### L [id number] #### [facility] ([facility]ER) [address] [place] [address] ALP [Catalytic activity/Vol] 44 U/L Normal 34-104 [facility] Comment on above: Performed By: #### L [id number] #### [facility] (BEAKER) [address] [place] [address] ALT [Catalytic activity/Vol] 12 U/L Normal 7-52 [facility] Comment on above: Performed By: #### L [id number] #### [facility] (BEAKER) [address] [place] [address] Anion gap [Moles/Vol] 11 mmol/L Normal 7-20 [facility] Comment on above: Performed By: #### L [id number] #### [facility] (BEAKER) [address] [place] [address] AST [Catalytic activity/Vol] 22 U/L Normal 13-39 [facility] Comment on above: Performed By: #### L [id number] #### [facility] (BEAKER) [address] [place] [address] Bilirubin [Mass/Vol] 0.5 mg/dL Normal 0.3-1.0 [facility] Comment on above: Performed By: #### L [id number] #### [facility] (BEAKER) [address] [place] [address] Calcium [Mass/Vol] 9.0 mg/dL Normal 8.6-10.3 [facility] Comment on above: Performed By: #### L [id number] #### [facility] ([facility]ER) [address] [place] [address] Chloride [Moles/Vol] 104 mmol/L Normal 98-107 [facility] Comment on above: Performed By: #### L [id number] #### [facility] (BE[facility]ER) [address] [place] [address] CO2 [Moles/Vol] 27 mmol/L Normal 21-31 [facility] Comment on above: Performed By: #### L [id number] #### [facility] ([facility]) [address] [place] [address] Creatinine [Mass/Vol] 0.86 mg/dL Normal 0.60-1.20 [facility] Comment on above: Performed By: #### L [id number] #### [facility] ([facility]) [address] [place] [address] GLOMERULAR FILTRATION RATE ML/MIN/1.73 SQ M.PREDICTED 67.0 mL/min/1.73m*2 Normal >60.0 [facility] Comment on above: Result Comment: The [facility]???s estimated glomerular filtration rate (eGFR) will no [...] group of individuals. Performed By: #### L [id number] #### [facility] ([facility]) [address] [place] [address] Glucose [Mass/Vol] 115 mg/dL High 70-100 [facility] Comment on above: Performed By: #### L [id number] #### [facility] ([facility]) [address] [place] [address] Potassium [Moles/Vol] 4.1 mmol/L Normal 3.5-5.1 [facility] Comment on above: Performed By: #### L [id number] #### [facility] ([facility]) [address] [place] [address] Protein [Mass/Vol] 6.2 g/dL Normal 6.0-8.3 [facility] Comment on above: Performed By: #### L [id number] #### [facility] (BEAKER) [address] [place] [address] Sodium [Moles/Vol] 138 mmol/L Normal 136-145 [facility] Comment on above: Performed By: #### L [id number] #### [facility] ([facility]) [address] [place] [address] Urea nitrogen [Mass/Vol] 12 mg/dL Normal 7-25 [facility] Comment on above: Performed By: #### L [id number] #### [facility] ([facility]) [address] [place] [address] UREA NITROGEN/CREATININE (MASS RATIO) IN SER/PLAS 14.0 Normal [facility] Comment on above: Performed By: #### L [id number] #### [facility] [facility] [address] [place] [address] CONSULTon 09-20-2024 CONSULT Reason For Consult Encephalopathy without clear etiology Referring Provider: Kayleigh Rivera MD History Of Present Illness Saeed Sarabia is a 83 y.o. female who was transferred from [facility] to [facility] with cholelithiasis and acute cholecystitis. She has [...] mg oral Nightly 5 mg at 09/19/24 212 sennosides-docusate sodium 1 tablet oral BID PRN sodium chloride 10 mL intravenou (more content not included)... Normal [facility] GASTRINon 09-20-2024 GASTRIN (PG/ML) IN SER/PLAS 21 pg/mL Normal 0-100 [facility] Comment on above: Result Comment: Perf ormed By: [employer] [address] [place] [id number] Sr Risk Management Consultant: Ash Worley MD, PhD CLIA Number: [id number] Performed By: #### L [id number] #### [facility] ([facility]) [address] [place] [address] HPon 09-20-2024 HP H&P reviewed. The patient was examined and there are no changes to the H&P. [facility] NURSNOTEon 09-20-[address] Ramiro rodrigez with patient being discharged from PACU to return to bed 4184 [facility] NURSNOTE May resume a Regular Diet, with strict anti-reflux measures. May resume all medications as ordered by admitting physician. New prescription for Pantoprazole 40 mg PO BID. Repeat EGD Scope outpatient in 8 weeks for evaluation on ulcers and biopsy samples. [facility] NURSNOTE EGD Findings: Gastri c Ulcers; Duodenal Ulcers; LA Grade A Esophagitis [facility] NURSNOTE . [facility] POCT GLUCOSE METER UNSOLICIT ED RESULTSon 09-20-2024 Glucose [Mass/Vol] 138 mg/dL High 70-105 [facility] Comment on above: Order Comment: Waive d Testing in the ED is performed under the ED CLIA certificate #[id number]. Result Comment: [email or web address] Performed By: #### L [id number] ####[facility] ([employer])[address] [place] [address] Glucose [Mass/Vol] 220 mg/dL High 70-105 [facility] Comment on above: Order Comment: Waive d Testing in the ED is performed under the ED CLIA certificate #[id number]. Result Comment: [email or web address] Performed By: #### L [id number] ####[facility] ([employer])[address] [place] [address] Glucose [Mass/Vol] 165 mg/dL High 70-105 [facility] Comment on above: Order Comment: Waive d Testing in the ED is performed under the ED CLIA certificate #[id number]. Result Comment: [email or web address] Performed By: #### L [id number] ####[facility] (BEAKER)[address] [address] 30on 09-19-2024 30 The patient is Moderately Stable - Low risk of patient condition declining or worsening The patient's goals for the shift include comfort The clinical goals for the shift include VSS, comfort Normal [facility] AMMONIAon 09-19-2024 AMMONIA (UMOL/L) IN PLASMA 25 umol/L Normal 18-72 [facility] Comment on above: Performed By: #### L [id number] #### [facility] RESPIRATORY THERAPY [address] [place] [address] [place] CBC WITH AUTO DIFFERENTIALon 09-19-2024 Basophils (Bld) [#/Vol] 0.03 10*3/uL Normal 0.00-0.20 [facility] Comment on above: Performed By: #### L [id number] ####[facility] (BEAKER)[address] [place] [address] Basophils/100 WBC (Bld) 0.3 % Normal 0.0-1.0 [facility] Comment on above: Performed By: #### L [id number] ####[facility] (BEAKER)[address] [place] [address] Eosinophils (Bld) [#/Vol] 0.03 10*3/uL Normal 0.00-0.50 [facility] Comment on above: Performed By: #### L [id number] ####[facility] (BEAKER)[address] [place] [address] Eosinophils/100 WBC (Bld) 0.3 % Normal 0.0-6.0 [facility] Comment on above: Performed By: #### L [id number] ####[facility] (BEAKER)[address] [place] [address] Erythrocyte distribution width (RBC) [Ratio] 13.2 % Normal 11.5-15.0 [facility] Comment on above: Performed By: #### L [id number] ####[facility] (BEAKER)[address] [place] [address] ERYTHROCYTE MEAN CORPUSCULAR HEMOGLOBIN CONCENTRATION (G/DL) BY AUTOMATED 32.4 g/dL Normal 32.0-35.0 [facility] Comment on above: Performed By: #### L [id number] ####[facility] ([facility])[address] [place] [address] Hematocrit (Bld) [Volume fraction] 41.3 % Normal 36.0-48.0 [facility] Comment on above: Performed By: #### L [id number] ####[facility] ([facility])[address] [place] [address] Hemoglobin (Bld) [Mass/Vol] 13.4 g/dL Normal 12.0-15.0 [facility] Comment on above: Performed By: #### L [id number] ####[facility] ([facility])[address] [place] [address] Immature granulocytes (Bld) [#/Vol] 0.03 10*3/uL Normal 0.00-0.20 [facility] Comment on above: Performed By: #### L [id number] ####[facility] (BEAKER)[address] [place] [address] Immature granulocytes/100 WBC (Bld) 0.3 % Normal 0.0-1.0 [facility] Comment on above: Performed By: #### L [id number] ####[facility] (BEAKER)[address] [place] [address] Lymphocytes (Bld) [#/Vol] 2.15 10*3/uL Normal 1.20-4.00 [facility] Comment on above: Performed By: #### L [id number] ####[facility] (BEAKER)[address] [place] [address] Lymphocytes/100 WBC (Bld) 20.7 % Normal 20.0-45.0 [facility] Comment on above: Performed By: #### L [id number] ####[facility] (BEAKER)[address] [place] [address] MCH (RBC) [Entitic mass] 30.2 pg Normal 27.0-33.0 [facility] Comment on above: Performed By: #### L [id number] ####[facility] ([facility])[address] [place] [address] MCV (RBC) [Entitic vol] 93.0 fL Normal 82.0-98.0 [facility] Comment on above: Performed By: #### L [id number] ####[facility] ([facility])[address] [place] [address] Monocytes (Bld) [#/Vol] 0.90 10*3/uL Normal 0.10-1.00 [facility] Comment on above: Performed By: #### L [id number] ####[facility] ([facility])[address] [place] [address] Monocytes/100 WBC (Bld) 8.7 % Normal 5.0-12.0 [facility] Comment on above: Performed By: #### L [id number] ####[facility] ([facility])[address] [place] [address] Neutrophils (Bld) [#/Vol] 7.25 10*3/uL Normal 1.60-7.60 [facility] Comment on above: Performed By: #### L [id number] ####[facility] ([facility])[address] [place] [address] Neutrophils/100 WBC (Bld) 69.7 % Normal 40.0-72.0 [facility] Comment on above: Performed By: #### L [id number] ####[facility] ([facility])[address] [place] [address] NRBC (PER 100 WBCS) BY AUTOMATED COUNT 0.0 % Normal 0 [facility] Comment on above: Performed By: #### L [id number] ####[facility] (BEAKER)[address] [place] [address] PLATELETS (10*3/UL) IN BLOOD AUTOMATED COUNT 333 10*3/uL Normal 150-400 [facility] Comment on above: Performed By: #### L [id number] ####[facility] (BEAKER)[address] [place] [address] RBC (Bld) [#/Vol] 4.44 10*6/uL Normal 3.80-5.[address] [facility] Comment on above: Performed By: #### L [id number] ####[facility] ([facility])[address] [place] [address] WBC (Bld) [#/Vol] 10.39 10*3/uL Normal 4.00-10.60 [facility] Comment on above: Performed By: #### L [id number] ####[facility] ([facility])[address] [place] [address] [address]IC [address] [facility] 09-19-2024 Albumin [Mass/Vol] 4.0 g/dL Normal 3.5-5.7 [facility] Comment on above: Performed By: #### L [id number] ####[facility] (BEAKER)[address] [place] [address] ALP [Catalytic activity/Vol] 49 U/L Normal 34-104 [facility] Comment on above: Performed By: #### L [id number] ####[facility] (BEAKER)[address] [place] [address] ALT [Catalytic activity/Vol] 11 U/L Normal 7-52 [facility] Comment on above: Performed By: #### L [id number] ####[facility] (BEAKER)[address] [place] [address] Anion gap [Moles/Vol] 14 mmol/L Normal 7-20 [facility] Comment on above: Performed By: #### L [id number] ####[facility] (BEAKER)[address] [place] [address] AST [Catalytic activity/Vol] 18 U/L Normal 13-39 [facility] Comment on above: Performed By: #### L [id number] ####[facility] (BEAKER)[address] [place] [address] Bilirubin [Mass/Vol] 0.5 mg/dL Normal 0.3-1.0 [facility] Comment on above: Performed By: #### L [id number] ####[facility] ([facility])[address] [place] [address] Calcium [Mass/Vol] 9.4 mg/dL Normal 8.6-10.3 [facility] Comment on above: Performed By: #### L [id number] ####[facility] ([facility])[address] [place] [address] Chloride [Moles/Vol] 102 mmol/L Normal 98-107 [facility] Comment on above: Performed By: #### L [id number] ####[facility] ([facility])[address] [place] [address] CO2 [Moles/Vol] 25 mmol/L Normal 21-31 [facility] Comment on above: Performed By: #### L [id number] ####[facility] ([facility])[address] [place] [address] Creatinine [Mass/Vol] 0.79 mg/dL Normal 0.60-1.20 [facility] Comment on above: Performed By: #### L [id number] ####[facility] ([facility])[address] [place] [address] GLOMERULAR FILTRATION RATE ML/MIN/1.73 SQ M.PREDICTED 74.2 mL/min/1.73m*2 Normal >60.0 [facility] Comment on above: Result Comment: The [facility]???s estimated glomerular filtration rate (eGFR) will no [...] of individuals. Performed By: #### L [id number] ####[facility] ([facility])[address] [place] [address] Glucose [Mass/Vol] 147 mg/dL High 70-100 [facility] Comment on above: Performed By: #### L [id number] ####[facility] ([facility])[address] [place] [address] Potassium [Moles/Vol] 4.0 mmol/L Normal 3.5-5.1 [facility] Comment on above: Performed By: #### L [id number] ####[facility] ([facility])[address] [place] [address] Protein [Mass/Vol] 6.5 g/dL Normal 6.0-8.3 [facility] Comment on above: Performed By: #### L [id number] ####[facility] ([facility])[address] [place] [address] Sodium [Moles/Vol] 137 mmol/L Normal 136-145 [facility] Comment on above: Performed By: #### L [id number] ####[facility] ([facility])[address] [place] [address] Urea nitrogen [Mass/Vol] 12 mg/dL Normal 7-25 [facility] Comment on above: Performed By: #### L [id number] ####[facility] ([facility])[address] [place] [address] UREA NITROGEN/CREATININE (MASS RATIO) IN SER/PLAS 15.2 Normal [facility] Comment on above: Performed By: #### L [id number] ####[facility] ([facility])[address] [place] [address] MAGNESIUMon 09-19-2024 Magnesium [Mass/Vol] 1.7 mg/dL Low 1.9-2.7 [facility] Comment on above: Performed By: #### L [id number] ####[facility] ([facility])[address] [place] [address] POCT GLUCOSE METER UNSOLICIT ED RESULTSon 09-19-2024 Glucose [Mass/Vol] 140 mg/dL High 70-105 [facility] Comment on above: Order Comment: Waive d Testing in the ED is performed under the ED CLIA certificate #[id number]. Result Comment: [email or web address] Performed By: #### L [id number] ####[facility] (BEAKER)[address] [place] [address] Glucose [Mass/Vol] 146 mg/dL High 70-105 [facility] Comment on above: Order Comment: Waive d Testing in the ED is performed under the ED CLIA certificate #[id number]. Result Comment: [email or web address] Performed By: #### L [id number] ####[facility] ([facility])[address] [place] [address] Glucose [Mass/Vol] 198 mg/dL High 70-105 [facility] Comment on above: Order Comment: Waive d Testing in the ED is performed under the ED CLIA certificate #[id number]. Result Comment: [email or web address] Performed By: #### L [id number] #### [facility]PIRATORY THERAPY [address] [place] [address] [facility] Glucose [Mass/Vol] 151 mg/dL High 70-105 [facility] Comment on above: Order Comment: Waive d Testing in the ED is performed under the ED CLIA certificate #[id number]. Result Comment: [email or web address] Performed By: #### L [id number] ####[facility] ([facility])[address] [place] [address] 30on 09-18-2024 30 The patient is Moderately Stable - Low risk of patient condition declining or worsening The patient's goals for the shift include comfort The clinical goals for the shift include comfort Normal [facility] 30 Daily Case Managemen t Update Multidisciplinary rounds have been completed. Barriers to Discharge: Patient is a transfer from [place] for c/o abd pain, AMS and CT [...] OT? Answer: Evaluate and treat 09/17/242216 Normal [facility] 30 The patient is Moderately Stable - [...] maintained or improved Outcome: Not Progressing Normal [facility] BASIC METABOLIC PANELon 12-1 Anion gap [Moles/Vol] 13 mmol/L Normal 7-20 [facility] Comment on above: Performed By: #### L [id number] #### [facility]PIRATORY THERAPY [address] [place], [place] [address] Calcium [Mass/Vol] 9.0 mg/dL Normal 8.6-10.3 [facility] Comment on above: Performed By: #### L [id number] #### [facility] RESPIRATORY THERAPY [address] [place] [address] [facility] Chloride [Moles/Vol] 102 mmol/L Normal 98-107 [facility] Comment on above: Performed By: #### L [id number] #### [facility] RESPIRATORY THERAPY [address] [place] [address] [facility] CO2 [Moles/Vol] 27 mmol/L Normal 21-31 [facility] Comment on above: Performed By: #### L [id number] #### [facility] RESPIRATORY THERAPY [address] [place] [address] [facility] Creatinine [Mass/Vol] 0.72 mg/dL Normal 0.60-1.20 [facility] Comment on above: Performed By: #### L [id number] #### [facility]PIRATORY THERAPY [address] [place] [address] [facility] GLOMERULAR FILTRATION RATE ML/MIN/1.73 SQ M.PREDICTED 82.9 mL/min/1.73m*2 Normal >60.0 [facility] Comment on above: Result Comment: The [facility]???s estimated glomerular filtration rate (eGFR) will no [...] individuals. Performed By: #### L [id number] #### [facility] RESPIRATORY THERAPY [address] [place] [address] [facility] Glucose [Mass/Vol] 112 mg/dL High 70-100 [facility] Comment on above: Performed By: #### L [id number] #### [facility] RESPIRATORY THERAPY [address] [place] [address] [facility] Potassium [Moles/Vol] 4.0 mmol/L Normal 3.5-5.1 [facility] Comment on above: Performed By: #### L [id number] #### [facility]PIRATORY THERAPY [address] [place] [address] [facility] Sodium [Moles/Vol] 138 mmol/L Normal 136-145 [facility] Comment on above: Performed By: #### L [id number] #### [facility] RESPIRATORY THERAPY [address] [place] [address] [facility] Urea nitrogen [Mass/Vol] 17 mg/dL Normal 7-25 [facility] Comment on above: Performed By: #### L [id number] #### [facility] RESPIRATORY THERAPY [address] [place] [address] [facility] UREA NITROGEN/CREATININE (MASS RATIO) IN SER/PLAS 23.6 Normal [facility] Comment on above: Performed By: #### L [id number] #### [facility] RESPIRATORY THERAPY [address] [place] [address] [facility] CBCon 09-18-2024 Erythrocyte distribution width (RBC) [Ratio] 13.2 % Normal 11.5-15.0 [facility] Comment on above: Performed By: #### L [id number] #### [facility] RESPIRATORY THERAPY [address] [place] [address] [facility] ERYTHROCYTE MEAN CORPUSCULAR HEMOGLOBIN CONCENTRATION (G/DL) BY AUTOMATED 31.5 g/dL Low 32.0-35.0 [facility] Comment on above: Performed By: #### L [id number] #### [facility] RESPIRATORY THERAPY [address] [place] [address] [facility] Hematocrit (Bld) [Volume fraction] 39.1 % Normal 36.0-48.0 [facility] Comment on above: Performed By: #### L [id number] #### [facility] RESPIRATORY THERAPY [address] [place] [address] [facility] Hemoglobin (Bld) [Mass/Vol] 12.3 g/dL Normal 12.0-15.0 [facility] Comment on above: Performed By: #### L [id number] #### [facility] RESPIRATORY THERAPY [address] [place] [address] [facility] MCH (RBC) [Entitic mass] 30.4 pg Normal 27.0-33.0 [facility] Comment on above: Performed By: #### L [id number] #### [facility] RESPIRATORY THERAPY [address] [place], [place] [address] MCV (RBC) [Entitic vol] 96.8 fL Normal 82.0-98.0 [facility] Comment on above: Performed By: #### L [id number] #### [facility] RESPIRATORY THERAPY [address] [place] [address] [facility] PLATELETS (10*3/UL) IN BLOOD AUTOMATED COUNT 284 10*3/uL Normal 150-400 [facility] Comment on above: Performed By: #### L [id number] #### [facility] RESPIRATORY THERAPY [address] [place], [place] [address] RBC (Bld) [#/Vol] 4.04 10*6/uL Normal 3.80-5.[address] [facility] Comment on above: Performed By: #### L [id number] #### [facility] RESPIRATORY THERAPY [address] [place] [address] [facility] WBC (Bld) [#/Vol] 6.54 10*3/uL Normal 4.00-10.[address] [facility] Comment on above: Performed By: #### L [id number] #### [facility] RESPIRATORY THERAPY [address] [place] [address] [facility] CONSULTon 09-18-2024 CONSULT -- Attestation signed by [...] lower back pain who was transferred from [facility] ER due to abdominal pain and the diagnosis of cholelithiasis with acute cholecystitis. History was taken from chart since the patient was a poor historian. The story of the patient goes back to 2 months ago when she has been complaining of abdominal pain, poor appetite and worsening her mental status. She was taken to [facility] ER for the evaluation of the abdominal [...] PRN ondanse (more content not included)... Normal [facility] 09-18-2024 -- Attestation signed by [...] lower back pain who was transferred from [facility] ER due to abdominal pain and the diagnosis of cholelithiasis with acute cholecystitis. History was taken from chart since the patient was a poor historian. The story of the patient goes back to 2 months ago when she has been complaining of abdominal pain, poor appetite and worsening her mental status. She was taken to [facility] ER for the evaluation of the abdominal [...] PRN ondanse (more content not included)... Normal [facility] MR BRAIN WO CONTRASTon 09-18 MR BRAIN [...] Otilio Wilson MD. 8 Invalid Interpretation Code [facility] POCT GLUCOSE METER UNSOLICIT ED RESULTSon 09-18-2024 Glucose [Mass/Vol] 154 mg/dL High 70-105 [facility] Comment on above: Order Comment: Waive d Testing in the ED is performed under the ED CLIA certificate #[id number]. Result Comment: [email or web address] Performed By: #### L [id number] ####[facility] (BEAKER)[address] [place] [address] Glucose [Mass/Vol] 211 mg/dL High 70-105 [facility] Comment on above: Order Comment: Waive d Testing in the ED is performed under the ED CLIA certificate #[id number]. Result Comment: [email or web address] ppe Performed By: #### L [id number] ####[facility] (BEAKER)[address] [place] [address] Glucose [Mass/Vol] 170 mg/dL High 70-105 [facility] Comment on above: Order Comment: Waive d Testing in the ED is performed under the ED CLIA certificate #[id number]. Result Comment: [email or web address] Performed By: #### L [id number] ####[facility] (BEAKER)[address] [place] [address] Glucose [Mass/Vol] 125 mg/dL High 70-105 [facility] Comment on above: Order Comment: Waive d Testing in the ED is performed under the ED CLIA certificate #[id number]. Result Comment: [email or web address] Performed By: #### L [id number] #### [facility] RESPIRATORY THERAPY [address] [place], [place] [address] T4, FREEon 09-18-2024 THYROXINE (T4) FREE (NG/DL) IN SER/PLAS 1.38 ng/dL Normal 0.71-1.85 [facility] Comment on above: Performed By: #### L [id number] #### [facility] RESPIRATORY THERAPY [address] [place], [place] [address] TSH3 REFLEX TO FT4on 024 THYROTROPIN (MIU/L) IN SER/PLAS BY DETECTION LIMIT <= 0.05 MIU/L 0.04 mIU/L Low 0.34-5.60 [facility] Comment on above: Performed By: #### L [id number] #### [facility] RESPIRATORY THERAPY [address] [place], [place] [address] CALCIUM, IONIZEDon CALCIUM IONIZED (MMOL/L) IN BLOOD 1.02 mmol/L Low 1.15-1.33 [facility] Comment on above: Performed By: #### L [id number] #### [facility] RESPIRATORY THERAPY [address] [place], [place] [address] CBC WITH AUTO DIFFERENTIALon 09-17-2024 Basophils (Bld) [#/Vol] 0.02 10*3/uL Normal 0.00-0.20 [facility] Comment on above: Performed By: #### L [id number] ####[facility] (BEAKER)[address] [place] [address] Basophils/100 WBC (Bld) 0.3 % Normal 0.0-1.0 [facility] Comment on above: Performed By: #### L [id number] ####[facility] (BEAKER)[address] [place] [address] Eosinophils (Bld) [#/Vol] 0.06 10*3/uL Normal 0.00-0.50 [facility] Comment on above: Performed By: #### L [id number] ####[facility] (BEAKER)[address] [place] [address] Eosinophils/100 WBC (Bld) 0.8 % Normal 0.0-6.0 [facility] Comment on above: Performed By: #### L [id number] ####[facility] ([facility])[address] [place] [address] Erythrocyte distribution width (RBC) [Ratio] 13.1 % Normal 11.5-15.0 [facility] Comment on above: Performed By: #### L [id number] ####[facility] (BEAKER)[address] [place] [address] ERYTHROCYTE MEAN CORPUSCULAR HEMOGLOBIN CONCENTRATION (G/DL) BY AUTOMATED 33.1 g/dL Normal 32.0-35.0 [facility] Comment on above: Performed By: #### L [id number] ####[facility] (BEAKER)[address] [place] [address] Hematocrit (Bld) [Volume fraction] 39.0 % Normal 36.0-48.0 [facility] Comment on above: Performed By: #### L [id number] ####[facility] (BEAKER)[address] [place] [address] Hemoglobin (Bld) [Mass/Vol] 12.9 g/dL Normal 12.0-15.0 [facility] Comment on above: Performed By: #### L [id number] ####[facility] (BEAKER)[address] [place] [address] Immature granulocytes (Bld) [#/Vol] 0.01 10*3/uL Normal 0.00-0.20 [facility] Comment on above: Performed By: #### L [id number] ####[facility] ([facility])[address] [place] [address] Immature granulocytes/100 WBC (Bld) 0.1 % Normal 0.0-1.0 [facility] Comment on above: Performed By: #### L [id number] ####[facility] ([facility])[address] [place] [address] Lymphocytes (Bld) [#/Vol] 2.03 10*3/uL Normal 1.20-4.00 [facility] Comment on above: Performed By: #### L [id number] ####[facility] ([facility])[address] [place] [address] Lymphocytes/100 WBC (Bld) 28.6 % Normal 20.0-45.0 [facility] Comment on above: Performed By: #### L [id number] ####[facility] ([facility])[address] [place] [address] MCH (RBC) [Entitic mass] 30.2 pg Normal 27.0-33.0 [facility] Comment on above: Performed By: #### L [id number] ####[facility] ([facility])[address] [place] [address] MCV (RBC) [Entitic vol] 91.3 fL Normal 82.0-98.0 U [facility] Comment on above: Performed By: #### L [id number] ####[facility] ([facility])[address] [place] [address] Monocytes (Bld) [#/Vol] 0.67 10*3/uL Normal 0.10-1.00 [facility] Comment on above: Performed By: #### L [id number] ####[facility] ([facility])[address] [place] [address] Monocytes/100 WBC (Bld) 9.4 % Normal 5.0-12.0 U [facility] Comment on above: Performed By: #### L [id number] ####[facility] ([facility])[address] [place] [address] Neutrophils (Bld) [#/Vol] 4.31 10*3/uL Normal 1.60-7.60 [facility] Comment on above: Performed By: #### L [id number] ####[facility] ([facility])[address] [place] [address] Neutrophils/100 WBC (Bld) 60.8 % Normal 40.0-72.0 [facility] Comment on above: Performed By: #### L [id number] ####[facility] ([facility])[address] [place] [address] NRBC (PER 100 WBCS) BY AUTOMATED COUNT 0.0 % Normal 0 [facility] Comment on above: Performed By: #### L [id number] ####[facility] ([facility])[address] [place] [address] PLATELETS (10*3/UL) IN BLOOD AUTOMATED COUNT 301 10*3/uL Normal 150-400 [facility] Comment on above: Performed By: #### L [id number] ####[facility] ([facility])[address] [place] [address] RBC (Bld) [#/Vol] 4.27 10*6/uL Normal 3.80-5.[address] [facility] Comment on above: Performed By: #### L [id number] ####[facility] ([facility])[address] [address] WBC (Bld) [#/Vol] 7.10 10*3/uL Normal 4.00-10.[address] [facility] Comment on above: Performed By: #### L [id number] ####[facility] ([facility])[address] [place] [address] COMPREHENSIVE METABOLIC PANE Sadiq 09-17-2024 Albumin [Mass/Vol] 3.9 g/dL Normal 3.5-5.7 [facility] Comment on above: Performed By: #### L [id number] #### [facility] (BEAKER) [address] [place] [address] ALP [Catalytic activity/Vol] 43 U/L Normal 34-104 [facility] Comment on above: Performed By: #### L [id number] #### [facility] (BEAKER) [address] [place] [address] ALT [Catalytic activity/Vol] 11 U/L Normal 7-52 [facility] Comment on above: Performed By: #### L [id number] #### [facility] ([facility]) [address] [place] [address] Anion gap [Moles/Vol] 14 mmol/L Normal 7-20 [facility] Comment on above: Performed By: #### L [id number] #### [facility] ([facility]) [address] [place] [address] AST [Catalytic activity/Vol] 15 U/L Normal 13-39 [facility] Comment on above: Performed By: #### L [id number] #### [facility] ([facility]) [address] [place] [address] Bilirubin [Mass/Vol] 0.5 mg/dL Normal 0.3-1.0 [facility] Comment on above: Performed By: #### L [id number] #### [facility] ([facility]) [address] [place] [address] Calcium [Mass/Vol] 9.2 mg/dL Normal 8.6-10.3 [facility] Comment on above: Performed By: #### L [id number] #### [facility] ([facility]AKER) [address] [place] [address] Chloride [Moles/Vol] 102 mmol/L Normal 98-107 [facility] Comment on above: Performed By: #### L [id number] #### [facility] (BEAKER) [address] [place] [address] CO2 [Moles/Vol] 24 mmol/L Normal 21-31 [facility] Comment on above: Performed By: #### L [id number] #### [facility] ([facility]) [address] [place] [address] Creatinine [Mass/Vol] 0.68 mg/dL Normal 0.60-1.20 [facility] Comment on above: Performed By: #### L [id number] #### [facility] ([facility]) [address] [place] [address] GLOMERULAR FILTRATION RATE ML/MIN/1.73 SQ M.PREDICTED 86.4 mL/min/1.73m*2 Normal >60.0 [facility] Comment on above: Result Comment: The [facility]???s estimated glomerular filtration rate (eGFR) will no [...] individuals. Performed By: #### L [id number] #### [facility] ([facility]) [address] [place] [address] Glucose [Mass/Vol] 128 mg/dL High 70-100 [facility] Comment on above: Performed By: #### L [id number] #### [facility] ([facility]) [address] [place] [address] Potassium [Moles/Vol] 4.2 mmol/L Normal 3.5-5.1 [facility] Comment on above: Performed By: #### L [id number] #### [facility] ([facility]) [address] [place] [address] Protein [Mass/Vol] 6.7 g/dL Normal 6.0-8.3 [facility] Comment on above: Performed By: #### L [id number] #### [facility] ([facility]) [address] [place] [address] Sodium [Moles/Vol] 136 mmol/L Normal 136-145 [facility] Comment on above: Performed By: #### L [id number] #### [facility] (BEAKER) [address] [place] [address] Urea nitrogen [Mass/Vol] 16 mg/dL Normal 7-25 [facility] Comment on above: Performed By: #### L [id number] #### [facility] (BEAKER) [address] [place] [address] UREA NITROGEN/CREATININE (MASS RATIO) IN SER/PLAS 23.5 Normal [facility] Comment on above: Performed By: #### L [id number] #### [facility] (BEAKER) [address] [place] [address] CONSULTon 09-17-2024 CONSULT Reason For Consult Abdominal pain Referring Provider: [facility] History Of Present Illness Saeed Sarabia is a 83 y.o. female presenting with Abdominal Pain; Altered Mental Status. Patient is not at baseline mental status per and daughter at bedside, states she has had AMS for at least 1 day with recent history of UTI for which she just completed antibiotics for. Patient was transferred from [facility], where she had CT scan of abdomen [...] was also given Rocephin and Flagyll at [facility] during her ER visit today, prior to transfer. Past Medical History She has a past medical history of Atrial fibrillation (CMS/HCC), CHF (congestive heart failure) ([facility]), Coronary artery disease, Diabetes mellitus ([facility]), Heart valve disease, Hyperlipidemia, and Hypertension. Surgical [...] (H) 7 (more content not included)... Normal [facility] EDNURSon 09-17-2024 EDNURS Mode of arrival (squ ad #, walk in, police, etc): [facility] Chief complaint(s): abdominal pain, altered mental status Arrival Note (brief scenario, treatment E LEARNING COORDINATOR, etc): Pt arrives via [facility] stretcher from [facility] with c/o of abdominal pain and altered mental status x4 days. Per facility report, [facility] did not have a surgery bed available, so pt will be getting surgery at [facility]. Pt was diagnosed with cholelithiasis and finished [...] pain. Pt denies SOB and CP. Normal [facility] EDPROVon 09-17-2024 EDPROV History of Present Illness Chief Complaint Patient presents with Abdominal Pain Transferred from [facility]; will be getting surgery at [facility] Altered Mental Status Initial evaluation completed by Dr. Vasquez at 7:20 PM. Saeed Sarabia is a 83 y.o. female presenting to the ED with c/o Abdominal Pain, Altered Mental Status. Patient reports via EMS and is a transfer from [facility]. Patient reports that she has gallstones and [...] currently on Eliquis. History provided by: Patient scourer used: No Altered Mental Status Associated symptoms: abdominal pain, headaches and nausea Associated symptoms: no vomiting Abdominal Pain Associated symptoms: nausea Associated symptoms: no vomiting No data recorded History Past Medical History: Diagnosis Date Atrial fibrillation (CMS/HCC) CHF (congestive heart failure) ([facility]/HCC) Coronary artery disease Diabetes mellitus ([facility]) Heart valve disease Hyperlipidemia Hypertension Past Surgical [...] ED Course. Risk Decision regarding hospitalization. Seth Manibe, documented on behalf of Dr. Vasquez. Chief complaint Abdominal Pain, Altered Mental Status Plan of Care: UA, CBC, Troponin, Lipase, CMP Attestation: Provider Statement BLAYNE: Provider Statement 2nd Scribe. By electronically signing this emergency patient record, the Emergency Physician/RN TRANSITION/PA-C attests that all entries made into the electronic medical record by the scribe prior to the Physician/RN TRANSITION/PA-C signature reflect an accurate accounting of the evaluation and care rendered by that Emergency Physician/RN TRANSITION/PA-C. The Emergency Physician/RN TRANSITION/PA-C assumes full responsibility for those entries. The Emergency Physician/RN TRANSITION/PA-C also attests that any patient testing or treatment that was instituted by nursing staff. Sanjeev Vasuqez MD 09/17/24 2130 Normal [facility] LIPASEon 09-17-2024 LIPASE (U/L) IN SER/PLAS 27 U/L Normal 11-82 [facility] Comment on above: Performed By: #### L [id number] ####[facility] ([facility])[address] [place] [address] MAGNESIUMon 09-17-2024 Magnesium [Mass/Vol] 1.5 mg/dL Low 1.9-2.7 [facility] Comment on above: Performed By: #### L [id number] ####[facility] ([facility])[address] [place] [address] NM HIDA WO EJECTION FRACTION on 09-17-2024 [...] acute cholecystitis. Electronically signed: Felicita Leal. Normal [facility] PHOSPHORUSon 09-17-2024 Magnesium [Mass/Vol] 3.3 mg/dL Normal 2.5-5.0 [facility] Comment on above: Performed By: #### L [id number] ####[facility] ([facility])[address] [place] [address] POCT GLUCOSE METER UNSOLICIT ED RESULTSon 09-17-2024 Glucose [Mass/Vol] 129 mg/dL High 70-105 [facility] Comment on above: Order Comment: Waive d Testing in the ED is performed under the ED CLIA certificate #[id number]. Result Comment: tloy d Performed By: #### L [id number] #### [facility] RESPIRATORY THERAPY [address] [place] [address] [place] TROPONIN Ion 09-17-2024 Troponin I.cardiac [Mass/Vol] 0.01 ng/mL Normal 0.00-0.04 [facility] Comment on above: Performed By: #### L [id number] #### [facility] ([facility]) [address] [place] [address] URINALYSIS MICROSCOPIC WITH REFLEX CULTUREon 09-17-2024 MUCUS (#/LPF) IN URINE SEDIMENT Occasional Normal None Seen, Occasional, Few [facility] Comment on above: Performed By: #### L [id number] ####[facility] ([facility])[address] [place] [address] RBC (#/HPF) IN URINE SEDIMENT 0-2 Normal None Seen, 0-2 [facility] Comment on above: Performed By: #### L [id number] ####[facility] ([facility])[address] [place] [address] SQUAMOUS EPITHELIAL CELLS (#/LPF) IN URINE SEDIMENT Few Normal None Seen, Occasional, Few [facility] Comment on above: Performed By: #### L [id number] ####[facility] ([facility])[address] [place] [address] WBC (LEUKOCYTE) (#/HPF) IN URINE SEDIMENT 3-5 Abnormal None Seen, 0-2 [facility] Comment on above: Performed By: #### L [id number] ####[facility] ([facility])[address] [place] [address] URINALYSIS WITH REFLEX CULTU REon 09-17-2024 BILIRUBIN, TOTAL PRESENCE IN URINE Negative Normal Negative [facility] Comment on above: Performed By: #### L [id number] #### [facility] ([facility]) [address] [place] [address] Clarity (U) Clear Normal Clear [facility] Comment on above: Performed By: #### L [id number] #### [facility] ([facility]) [address] [place] [address] Color (U) Colorless Normal Colorless, Yellow, Light-Yello w [facility] Comment on above: Performed By: #### L [id number] #### [facility] ([facility]) [address] [place] [address] GLUCOSE (MG/DL) IN URINE Normal Normal Normal [facility] Comment on above: Performed By: #### L [id number] #### [facility] ([facility]) [address] [place] [address] HEMOGLOBIN PRESENCE IN URINE Trace Abnormal Negative [facility] Comment on above: Performed By: #### L [id number] #### [facility] ([facility]) [address] [place] [address] Ketones Ql (U) Trace Abnormal Negative [facility] Comment on above: Performed By: #### L [id number] #### [facility] ([facility]) [address] [place] [address] LEUKOCYTE ESTERASE PRESENCE IN URINE BY TEST STRIP Negative Normal Negative [facility] Comment on above: Performed By: #### L [id number] #### [facility] ([facility]) [address] [place] [address] NITRITE PRESENCE IN URINE Negative Normal Negative [facility] Comment on above: Performed By: #### L [id number] #### [facility] ([facility]) [address] [place] [address] pH (U) 5.0 [pH] Normal 5.0-8.0 [facility] Comment on above: Performed By: #### L [id number] #### [facility] ([facility]) [address] [place] [address] Protein (U) [Mass/Vol] Negative Normal [facility]: Performed By: #### L [id number] #### [facility] ([facility]) [address] [place] [address] Specific gravity (U) [Rel density] 1.026 Normal 1.010-1.030 [facility] Comment on above: Performed By: #### L [id number] #### [facility] ([facility]) [address] [place] [address] UROBILINOGEN (MG/DL) IN URINE Normal Normal Normal [facility] Comment on above: Performed By: #### L [id number] #### [facility] (BEAKER) [address] [place] [address] VENOUS BLOOD GAS WITH IONIZE D CALCIUMon 09-17-2024 Base excess Calc (BldV) [Moles/Vol] -4.9000 mmol/L Normal [facility] Comment on above: Performed By: #### L [id number] #### [facility] RESPIRATORY THERAPY [address] [place] [address] [facility] CALCIUM IONIZED (MMOL/L) IN BLOOD 1.04 mmol/L Low 1.15-1.33 [facility] Comment on above: Performed By: #### L [id number] #### [facility] RESPIRATORY THERAPY [address] [place] [address] [facility] CO2 (BldV) [Partial pressure] 26 mm[Hg] Low 40-50 [facility] Comment on above: Performed By: #### L [id number] #### [facility] RESPIRATORY THERAPY [address] [place] [address] [facility] HCO3 (Bld) [Moles/Vol] 17.7 mmol/L Normal [facility] Comment on above: Performed By: #### L [id number] #### [facility] RESPIRATORY THERAPY [address] [place] [address] [place] Oxygen (BldV) [Partial pressure] 147 mm[Hg] High 35-45 [facility] Comment on above: Performed By: #### L [id number] #### [facility] RESPIRATORY THERAPY [address] [place] [address] [facility] OXYGEN SATURATION (%) IN VENOUS BLOOD 99.8 % High 65.0-75.0 [facility] Comment on above: Performed By: #### L [id number] #### [facility] RESPIRATORY THERAPY [address] [place] [address] [facility] PH OF VENOUS BLOOD 7.44 High 7.31-7.41 [facility] Comment on above: Performed By: #### L [id number] #### [facility] RESPIRATORY THERAPY [address] [place] [address] [facility] ALL BASIC METABOLIC PANELon 08-29-2024 Anion gap [Moles/Vol] 15.8 mmol/L NO [facility] Calcium [Mass/Vol] 9.8 mg/dL 8.5 - 10. 1 mg/dL [facility] Chloride [Moles/Vol] 103 mmol/L 98 - 10 7 mmol/L [facility] CO2 [Moles/Vol] 26.4 mmol/L 21.0 - 32.0 mmol/L [facility] Creatinine [Mass/Vol] 1.07 mg/dL High 0.55 - 1.02 mg/dL [facility] GFR/1.73 sq M.predicted CKD-EPI (S/P/Bld) [Vol rate/Area] 59 Low >=60 mL/min/1.73 m 2 [facility] Glucose [Mass/Vol] 266 mg/dL High 74 - 106 mg/dL [facility] Interpretation and review of laboratory results Abnormal [facility] Potassium [Moles/Vol] 4.2 mmol/L 3.5 - 5.1 mmol/L [facility] Sodium [Moles/Vol] 141 mmol/L 136 - 145 mmol/L [facility] TBH EGFR-NON AF [place]UR[place]ER 49 Low >=6 0 mL/min/1.73 m 2 [facility] Urea nitrogen [Mass/Vol] 21 mg/dL High 7.0 - 18.0 mg/dL [facility] Urea nitrogen/Creatinine [Mass ratio] 19.6 mg/mg [facility] ALL BASIC METABOLIC PANELon 08-20-2024 Anion gap [Moles/Vol] 15.7 mmol/L NO [facility] Calcium [Mass/Vol] 9.5 mg/dL 8.5 - 10. 1 mg/dL [facility] Chloride [Moles/Vol] 108 mmol/L High 98 - 10 7 mmol/L [facility] CO2 [Moles/Vol] 27.8 mmol/L 21.0 - 32.0 mmol/L [facility] Creatinine [Mass/Vol] 0.85 mg/dL 0.55 - 1.02 mg/dL [facility] GFR/1.73 sq M.predicted CKD-EPI (S/P/Bld) [Vol rate/Area] >60 >=60 mL/min/1.73 m 2 [facility] Glucose [Mass/Vol] 118 mg/dL High 74 - 106 mg/dL [facility] Interpretation and review of laboratory results Abnormal [facility] Potassium [Moles/Vol] 4.5 mmol/L 3.5 - 5.1 mmol/L [facility] Sodium [Moles/Vol] 147 mmol/L High 136 - 145 mmol/L [facility]H EGFR-NON AF [place]UR[place] >60 >=6 0 mL/min/1.73 m 2 [facility] Urea nitrogen [Mass/Vol] 14 mg/dL 7.0 - 18.0 mg/dL [facility] Urea nitrogen/Creatinine [Mass ratio] 16.5 mg/mg [facility] ALL CBC WITH AUTO DIFFon BASOPHILS ABSOLUTE AUTO 0 N [facility] Basophils/100 WBC (Bld) 0.3 % 0.2 - 2.0 % [facility] Eosinophils/100 WBC (Bld) 0.7 % Low 0.9 - 7.0 % [facility] Erythrocyte distribution width (RBC) [Ratio] 13.6 % 11.0 - 15.0 % [facility] Hematocrit (Bld) [Volume fraction] 40 % 36.0 - 48.0 % [facility] Hemoglobin (Bld) [Mass/Vol] 12.5 g/dL 12.0 - 16.0 g/dL [facility] IMMATURE GRANULOCYTES ABS AUTO 0.01 [facility] Immature granulocytes/100 WBC (Bld) 0.1 % 0.0 - 0.5 % [facility] Interpretation and review of laboratory results Abnormal [facility] LYMPHOCYTES ABSOLUTE AUTO 2.1 [facility] Lymphocytes/100 WBC (Bld) 31.5 % 20.5 - 60.0 % [facility] MCH (RBC) [Entitic mass] 30 pg 26. 7 - 34.0 pg [facility] MCHC (RBC) [Mass/Vol] 31.3 g/dL 29.9 - 35.2 g/dL [facility] MCV (RBC) [Entitic vol] 95.9 fL 81.0 - 99.0 fL [facility] MONOCYTES ABSOLUTE AUTO 0.6 N [facility] Monocytes/100 WBC (Bld) 8.5 % 1.7 - 12.0 % [facility] NEUTROPHILS ABSOLUTE AUTO 3.9 [facility] Neutrophils/100 WBC (Bld) 58.9 % 43.0 - 75.0 % [facility] Platelet mean volume (Bld) [Entitic vol] 9.9 fL 9.5 - 13.5 fL [facility] TB EO # 0.1 [facility] PLT 263 [facility] RBC 4.17 Low [facility] WBC 6.7 [facility] HbA1c (Bld) [Mass fraction]o n 08-20-2024 Interpretation and review of laboratory results Normal [facility] - Hematology and Cell countson 08-20-2024 HbA1c (Bld) [Mass fraction] 6/1% [facility] 36on 02-19-2024 36 Regarding echo from 02/15/2024: MD Cara Bansal [place] Her echo is within normal limits. Patient informed. Normal [facility] Office Visiton 02-02-2024 Follow-up visit [id number] Saeed Sarabia 1940 F Date Provider Department Center 02/02/2024 [facility] ROBERSON [facility] Family History Problem Relation Age of Onset Heart attack Mother Coronary artery disease Mother Heart attack Father Coronary artery disease Father Multiple sclerosis Sister Family Status - Relation Status Age at Mother Father Sister Level of Service:24089 [place] OFFICE/OUTPATIENT ESTABLISHED MOD MDM 30 MIN Reason for Visit and Comments: Follow-up [185266] - 6 months Normal [facility] FREE T3on 08-15-2022 FREE T3 2.11 pg/mlL Critically low 2.18-3.98 [facility] Comment on above: Performed By: #### F T3, TSH, CMP, LIPID ####[facility] [id number] [place], [place] [address]KgDr. Adilene Koo FREE T4on 08-15-2022 Free T4 [Mass/Vol] 1.13 ng/dL Normal 0.76-1.46 [facility] Comment on above: Performed By: #### F T4 #### [facility] [address] [place], [place] [address] Dr. Adilene Koo GLYCOHEMOGLOBIN A1Con 2021 ADA RECOMMENDATION SEE BELOW Normal [facility] Comment on above: Result Comment: ADA RECOMMENDED LIMIT 4.0 - 6.0 ADA THERAPEUTIC TARGET < 7.0 ACTION SUGGESTED > 7.0 Performed By: #### A 1C #### [facility] [address] [place] [address] [address] Adilene Koo Glucose [Mass/Vol] 137 mg/dL Normal [facility] Comment on above: Performed By: #### A 1C #### [facility] [address] [place] [address] [address] Adilene Koo HbA1c (Bld) [Mass fraction] 6.4 % Critically high 4.5-6.2 [facility] Comment on above: Performed By: #### A 1C #### [facility] [facility] [address] [address] [address] Adilene Koo LIPID PROFILEon 08-15-2022 CHOL-HDL RATIO NORM SEE BELOW Normal [facility] Comment on above: Result Comment: 3.3 - 4.4 LOW RISK 4.4 - 7.1 AVERAGE RISK 7.1 - 11.0 MODERATE RISK >11.0 HIGH RISK Performed By: #### F T3, TSH, CMP, LIPID ####[facility] [address] [id number]. Adilene Koo Cholesterol [Mass/Vol] 127 mg/dL Normal <=200 [facility] Comment on above: Performed By: #### F T3, TSH, CMP, LIPID ####[facility] [address] [id number]. Adilene Koo Cholesterol in HDL [Mass/Vol] 48 mg/dL Normal 40-60 [facility] Comment on above: Performed By: #### F T3, TSH, CMP, LIPID ####[facility] [address] [id number]. Adilene Koo Cholesterol in LDL [Mass/Vol] 60.2 mg/dL Normal [facility] Comment on above: Performed By: #### F T3, TSH, CMP, LIPID ####[facility] [address] [id number]. Adilene Koo Cholesterol.total/Choles terol in HDL [Mass ratio] 2.6 {ratio} Normal [facility] Comment on above: Performed By: #### F T3, TSH, CMP, LIPID ####[facility] [address] [id number]. Adilene Koo HDL NORMAL > or = 60 mg/dl - LO W CARDIOVASCULAR RISK <40 mg/dl - HIGH CARDIOVASCULAR RISK Normal [facility] Comment on above: Performed By: #### F T3, TSH, CMP, LIPID ####[facility] [address] [id number]. Adilene Koo LDL CALC NORMAL SEE BELOW Normal [facility] Comment on above: Result Comment: <100 mg/dl OPTIMAL 100 - 129 mg/dl NEAR OR ABOVE OPTIMAL 130 - 159 mg/dl BORDERLINE HIGH 160 - 189 mg/dl HIGH >190 mg/dl VERY HIGH Performed By: #### F T3, TSH, CMP, LIPID ####[facility] [address] [address]Dr. Adilene Koo Triglyceride [Mass/Vol] 94 mg/dL Normal <=150 [facility] Comment on above: Performed By: #### F T3, TSH, CMP, LIPID ####[facility] [address] [address]Dr. Adilene Koo VLDL CALC 18.8 mg/dL Normal [facility] Comment on above: Performed By: #### F T3, TSH, CMP, LIPID ####[facility] [address] [address]DrKen Koo MICROALBUMIN, RAND URon 11-0 mALB 1.6 mg/L Normal <=30.0 [facility] Comment on above: Performed By: #### M ALBR #### [facility] [address] [address] [address] Adilene Koo PROF 14(COMP METB)on 022 Albumin [Mass/Vol] 3.2 g/dL Critically low 3.4-5.0 [facility] Comment on above: Performed By: #### F T3, TSH, CMP, LIPID ####[facility] [address] [address]Dr. Adilene Koo Albumin/Globulin [Mass ratio] 0.9 {ratio} Normal [facility] Comment on above: Performed By: #### F T3, TSH, CMP, LIPID ####[facility] [address] [address]Dr. Adilene Koo ALP [Catalytic activity/Vol] 59 U/L Normal 46-116 [facility] Comment on above: Performed By: #### F T3, TSH, CMP, LIPID ####[facility] [address] [address]Dr. Adilene Koo ALT [Catalytic activity/Vol] 19 U/L Normal 14-59 [facility] Comment on above: Performed By: #### F T3, TSH, CMP, LIPID ####[facility] [address] [address]Dr. Adilene Koo Anion gap [Moles/Vol] 10.8 mmol/L Normal [facility] Comment on above: Performed By: #### F T3, TSH, CMP, LIPID ####[facility] [address] [address]Dr. Josephinerossy Koo AST [Catalytic activity/Vol] 18 U/L Normal 15-37 [facility] Comment on above: Performed By: #### F T3, TSH, CMP, LIPID ####[facility] [address] [place], [place] [address]Dr. Adilene Hayes Bilirubin [Mass/Vol] 0.4 mg/dL Normal 0.2-1.0 [facility] Comment on above: Performed By: #### F T3, TSH, CMP, LIPID ####[facility] [address] [address]Dr. Adilene Hayes Calcium [Mass/Vol] 9.4 mg/dL Normal 8.5-10.1 [facility] Comment on above: Performed By: #### F T3, TSH, CMP, LIPID ####[facility] [address] [place], [place] [address]Dr. Josephinerossy Koo Chloride [Moles/Vol] 106 mmol/L Normal 98-107 [facility] Comment on above: Performed By: #### F T3, TSH, CMP, LIPID ####[facility] [address] [place], [place] [address]Dr. Adilene Koo CO2 [Moles/Vol] 28.9 mmol/L Normal 21.0-32.0 [facility] Comment on above: Performed By: #### F T3, TSH, CMP, LIPID ####[facility] [address] [phone]. Adilene Koo Creatinine [Mass/Vol] 0.73 mg/dL Normal 0.55-1.02 [facility] Comment on above: Performed By: #### F T3, TSH, CMP, LIPID ####[facility] [address] [phone]. Adilene Koo EGFR-AF TURKS AND CAICOS ISLANDER >60 Normal >=60 [facility] Comment on above: Performed By: #### F T3, TSH, CMP, LIPID ####[facility] [address] [phone]. Adilene Koo EGFR-NON AF TURKS AND CAICOS ISLANDER >60 Normal >=60 [facility] Comment on above: Performed By: #### F T3, TSH, CMP, LIPID ####[facility] [address] [phone]. Adilene Koo Globulin (S) [Mass/Vol] 3.6 g/dL Normal [facility] Comment on above: Performed By: #### F T3, TSH, CMP, LIPID ####[facility] [address] [phone]. Adilene Koo Glucose [Mass/Vol] 94 mg/dL Normal 74-106 [facility] Comment on above: Performed By: #### F T3, TSH, CMP, LIPID ####[facility] [address] [phone]. Adilene Koo Potassium [Moles/Vol] 4.7 mmol/L Normal 3.5-5.1 [facility] Comment on above: Performed By: #### F T3, TSH, CMP, LIPID ####[facility] [address] [phone]. Adilene Koo Protein [Mass/Vol] 6.8 g/dL Normal 6.4-8.2 [facility] Comment on above: Performed By: #### F T3, TSH, CMP, LIPID ####[facility] [address] [address]Dr. Adilene Koo Sodium [Moles/Vol] 141 mmol/L Normal 136-145 [facility] Comment on above: Performed By: #### F T3, TSH, CMP, LIPID ####[facility] [address] [address]Dr. Adilene Koo Urea nitrogen [Mass/Vol] 15.0 mg/dL Normal 7.0-18.0 [facility] Comment on above: Performed By: #### F T3, TSH, CMP, LIPID ####[facility] [address] [address]Dr. Adilene Koo Urea nitrogen/Creatinine [Mass ratio] 20.5 mg/mg Normal [facility] Comment on above: Performed By: #### F T3, TSH, CMP, LIPID ####[facility] [address] [address]Dr. Adilene Koo TSHon 08-15-2022 TSH 0.219 uIU/mL Critically low 0.358-3.740 [facility] Comment on above: Performed By: #### F T3, TSH, CMP, LIPID ####[facility] [address] [address]Dr. Adilene Koo UA RANDOM W/MICROSCOPICon BACTERIA NONE SEEN Normal NONE SEEN [facility] Comment on above: Performed By: #### U AMIC #### [facility] [address] [address] [address] Adilene Koo Bilirubin Ql (U) Negative Normal NEGATIVE [facility] Comment on above: Performed By: #### U AMIC #### [facility] [address] [address] [address] Adilene Koo CAST NONE SEEN Normal NONE SEEN [facility] Comment on above: Performed By: #### U AMIC #### [facility] [address] [address] [address] Adilene Koo Clarity (U) CLEAR Normal CLEAR [facility] Comment on above: Performed By: #### U AMIC #### [facility] [address] [address] [address] Adilene Koo Color (U) LT. YELLOW Normal YELLOW [facility] Comment on above: Performed By: #### U AMIC #### [facility] [address] [address] [address] Adilene Koo Crystals LM Nom (Urine sed) NONE SEEN Normal NONE SEEN [facility] Comment on above: Performed By: #### U AMIC #### [facility] [address] [place] [address] Dr. Adilene Koo Epithelial cells LM Ql (Urine sed) RARE Normal NONE SEEN /RARE [facility] Comment on above: Performed By: #### U AMIC #### [facility] [address] [place] [address] Dr. Adilene Koo Glucose Ql (U) Negative Normal NEGATIVE [facility] Comment on above: Performed By: #### U AMIC #### [facility] [address] [address] [address] Adilene Koo Hemoglobin Ql (U) Negative Normal NEGATIVE [facility] Comment on above: Performed By: #### U AMIC #### [facility] [address] [place] [address] Dr. Adilene Koo Ketones Ql (U) Negative Normal NEGATIVE [facility] Comment on above: Performed By: #### U AMIC #### [facility] [address] [address] [address] Adilene Koo LEUKOCYTES Negative Normal NEGATIVE [facility] Comment on above: Performed By: #### U AMIC #### [facility] [address] [place] [address] Dr. Adilene Koo MUCOUS NONE SEEN Normal NONE SEEN [facility] Comment on above: Performed By: #### U AMIC #### [facility] [address] [place] [address] Dr. Adilene Koo Nitrite Ql (U) Negative Normal NEGATIVE [facility] Comment on above: Performed By: #### U AMIC #### [facility] [address] [place] [address] Dr. Adilene Koo pH (U) 6.0 [pH] Normal 5-9 [facility] Comment on above: Performed By: #### U AMIC #### [facility] [address] [address] [address] Adilene Koo RBC 0-2 Normal 0-2 [facility] Comment on above: Performed By: #### U AMIC #### [facility] [address] [address] [address] Adilene Koo SPEC GRAVITY 1.020 Normal 1.005-<=1.0 25 [facility] Comment on above: Performed By: #### U AMIC #### [facility] [address] [address] [address] Adilene Koo UA PROTEIN Negative Normal NEGATIVE/ TRACE [facility] Comment on above: Performed By: #### U AMIC #### [facility] [address] [address] [address] Adilene Koo Urobilinogen Qn (U) 0.2 {Juan'U}/dL Normal 0.2 - 1. 0 [facility] Comment on above: Performed By: #### U AMIC #### [facility] [address] [address] [address] Adilene Koo WBC 0-2 Abnormal NONE SEEN [facility] Comment on above: Performed By: #### U AMIC #### [facility] [address] [address] [address] Adilene Koo Glucose Glucometer ([facility]) [M ass/Vol]Ordered By: Kingston Gao on 04-15-2022 Glucose [Mass/Vol] 112 mg/dL [facility] Comment on above: Random Glucose Refer ence Range is dependent on time and content of last meal. Glucose of more than 200 mg/dL in a nonstressed, ambulatory subject supports the diagnosis of Diabetes Mellitus. Glucose Poct Glucometerson 0 04-15-2022 Commemt1 Glu2: Cleaned Meter Normal [facility] Comment on above: Result Comment: PERF ORMED BY: [facility] [address] [place] [address] PATHOLOGIST RIB BENDER GUIDO ELIZALDE M.D. Performed By: #### G INOCENTE #### Point of Care testing , Glucose [Mass/Vol] 112 mg/dL Normal [facility] Comment on above: Result Comment: [place] om Glucose Reference Range is dependent on time and content of last meal. Glucose of more than 200 mg/dL in a nonstressed, ambulatory subject supports the diagnosis of Diabetes Mellitus. Performed By: #### G LUMARKUS #### Point of Care testing , No Panel InformationOrdered By: Kingston Gao on 04-15-2022 Bedside Glucose Comment Glu2: cleaned meter [facility] Glucose Poct Glucometerson 0 04-14-2022 Commemt1 Glu2: Cleaned Meter [facility] Comment on above: Result Comment: PERF ORMED BY: [place] [address] PATHOLOGIST RIB BENDER GUIDO ELIZALDE M.D. Performed By: #### C BC, PT, PTT, CMP #### [facility] [address] [place] [address] Glucose [Mass/Vol] 116 mg/dL Normal [facility] Comment on above: Result Comment: [place] om Glucose Reference Range is dependent on time and content of last meal. Glucose of more than 200 mg/dL in a nonstressed, ambulatory subject supports the diagnosis of Diabetes Mellitus. Performed By: #### C BC, PT, PTT, CMP #### [facility] [address] [place] [address] [place] Commemt1 Glu2: Cleaned Meter [facility] Comment on above: Result Comment: PERF ORMED BY: [facility] [address] [place] [address] PATHOLOGIST RIB BENDER GUIDO ELIZALDE M.D. Performed By: #### C BC, PT, PTT, CMP #### [facility] [address] [place], [place] [id number] [facility] Glucose [Mass/Vol] 107 mg/dL Normal [facility] Comment on above: Result Comment: [place] om Glucose Reference Range is dependent on time and content of last meal. Glucose of more than 200 mg/dL in a nonstressed, ambulatory subject supports the diagnosis of Diabetes Mellitus. Performed By: #### C BC, PT, PTT, CMP #### [address] [id number] [facility] Glucose Poct Glucometerson 0 04-13-2022 Commemt1 Glu2: Cleaned Meter Normal [facility] Comment on above: Result Comment: PERF ORMED BY: [place] [address] PATHOLOGIST RIB BENDER GUIDO ELIZALDE M.D. Performed By: #### G LULS #### Point of Care testing , Glucose [Mass/Vol] 83 mg/dL Normal [facility] Comment on above: Result Comment: [place] om Glucose Reference Range is dependent on time and content of last meal. Glucose of more than 200 mg/dL in a nonstressed, ambulatory subject supports the diagnosis of Diabetes Mellitus. Performed By: #### G LULS #### Point of Care testing , Glucose [Mass/Vol] 76 mg/dL Normal [facility] Comment on above: Result Comment: [place] om Glucose Reference Range is dependent on time and content of last meal. Glucose of more than 200 mg/dL in a nonstressed, ambulatory subject supports the diagnosis of Diabetes Mellitus. PERFORMED BY: [place] [address] PATHOLOGIST RIB BENDER GUIDO ELIZALDE M.D. Performed By: #### C BC, PT, PTT, CMP #### [address] [id number] [facility] Glucose Poct Glucometerson 0 04-12-2022 Commemt1 Glu2: Cleaned Meter [facility] Comment on above: Result Comment: PERF ORMED BY: [place] [address] PATHOLOGIST RIB BENDER GUIDO ELIZALDE M.D. Performed By: #### C BC, PT, PTT, CMP #### [place] [address] [place] Glucose [Mass/Vol] 238 mg/dL Normal [facility] Comment on above: Result Comment: [place] om Glucose Reference Range is dependent on time and content of last meal. Glucose of more than 200 mg/dL in a nonstressed, ambulatory subject supports the diagnosis of Diabetes Mellitus. Performed By: #### C BC, PT, PTT, CMP #### [address] Glucose [Mass/Vol] 86 mg/dL Normal [facility] Comment on above: Result Comment: [place] om Glucose Reference Range is dependent on time and content of last meal. Glucose of more than 200 mg/dL in a nonstressed, ambulatory subject supports the diagnosis of Diabetes Mellitus. PERFORMED BY: [place] [address] PATHOLOGIST RIB BENDER GUIDO ELIZALDE M.D. Performed By: #### G LULS #### Point of Care testing , Glucose Poct Glucometerson 0 04-11-2022 Commemt1 Glu2: Cleaned Meter Normal [facility] Comment on above: Result Comment: PERF ORMED BY: [place] [address] PATHOLOGIST RIB BENDER GUIDO ELIZALDE M.D. Performed By: #### G LULS #### Point of Care testing , Glucose [Mass/Vol] 123 mg/dL Normal [facility] Comment on above: Result Comment: [place] om Glucose Reference Range is dependent on time and content of last meal. Glucose of more than 200 mg/dL in a nonstressed, ambulatory subject supports the diagnosis of Diabetes Mellitus. Performed By: #### G LULS #### Point of Care testing , Glucose [Mass/Vol] 107 mg/dL Normal [facility] Comment on above: Result Comment: [place] om Glucose Reference Range is dependent on time and content of last meal. Glucose of more than 200 mg/dL in a nonstressed, ambulatory subject supports the diagnosis of Diabetes Mellitus. PERFORMED BY: [place] [address] PATHOLOGIST RIB BENDER JIANLAN SUN M.D. Performed By: #### G LULS #### Point of Care testing , Glucose Poct Glucometerson 0 04-10-2022 Glucose [Mass/Vol] 100 mg/dL Normal [facility] Comment on above: Result Comment: [facility] Glucose Reference Range is dependent on time and content of last meal. Glucose of more than 200 mg/dL in a nonstressed, ambulatory subject supports the diagnosis of Diabetes Mellitus. PERFORMED BY: [facility] [address] [phone] PATHOLOGIST RIB BENDER GUIDO ELIZALDE M.D. Performed By: #### G LULS #### Point of Care testing , Glucose [Mass/Vol] 99 mg/dL Normal [facility] Comment on above: Result Comment: [facility] Glucose Reference Range is dependent on time and content of last meal. Glucose of more than 200 mg/dL in a nonstressed, ambulatory subject supports the diagnosis of Diabetes Mellitus. PERFORMED BY: [place] [phone] PATHOLOGIST RIB BENDER GUIDO ELIZALDE M.D. Performed By: #### C BC, PT, PTT, CMP #### [place] [address] [place] A1C with Estimated Average G luon 04-09-2022 Glucose [Mass/Vol] 163 mg/dL Normal [facility] Comment on above: Result Comment: PERF ORMED BY: [place] [phone] PATHOLOGIST RIB BENDER GUIDO ELIZALDE M.D. Performed By: #### G LULS #### Point of Care testing , HbA1c (Bld) [Mass fraction] 7.3 % High 4.3-5.6 [facility] Comment on above: Result Comment: Incr eased risk for diabetes: 5.7 - 6.4 diabetes: >6.4 glycemic control for adults with diabetes: <7.0 Performed By: #### G LULS #### Point of Care testing , Cholesterol [Mass/volume] in Serum or PlasmaOrdered By: Justyn Spann on 04-09-2022 Cholesterol [Mass/Vol] 128 mg/dL 140-200 [facility] Comment on above: Chol less than 200 m g/dl low risk Chol 201-239 mg/dl borderline risk Chol 240 mg/dl and greater high risk Cholesterol in LDL Calc [Mas s/Vol]Ordered By: Justyn Spann on 04-09-2022 Cholesterol in LDL [Mass/Vol] 68 mg/dL 0-100 [facility] Comment on above: LDL ATP III CLASSIFI CATION LDL less than 100 mg/dL Optimal LDL 100-129 mg/dL Near or above optimal LDL 130-159 mg/dL Borderline high LDL 160-189 mg/dL High LDL greater than 189 mg/dL Very high Cholesterol in VLDL Calc [Ma ss/Vol]Ordered By: Justyn Spann on 04-09-2022 Cholesterol in VLDL [Mass/Vol] 22 mg/dL [facility] Glucose Poct Glucometerson 0 04-09-2022 Commemt1 Glu2: Cleaned Meter [facility] Comment on above: Result Comment: PERF ORMED BY: [place] [address] PATHOLOGIST RIB BENDER GUIDO ELIZALDE M.D. Performed By: #### G LUMARKUS #### Point of Care testing , Glucose [Mass/Vol] 164 mg/dL [facility] Comment on above: Result Comment: [place] Glucose Reference Range is dependent on time and content of last meal. Glucose of more than 200 mg/dL in a nonstressed, ambulatory subject supports the diagnosis of Diabetes Mellitus. Performed By: #### G LULS #### Point of Care testing , Commemt1 Glu2: Cleaned Meter [facility] Comment on above: Result Comment: PERF ORMED BY: [place] [address] PATHOLOGIST RIB BENDER GUIDO ELIZALDE M.D. Performed By: #### C BC, PT, PTT, CMP #### [address] Glucose [Mass/Vol] 152 mg/dL [facility] Comment on above: Result Comment: [place] Glucose Reference Range is dependent on time and content of last meal. Glucose of more than 200 mg/dL in a nonstressed, ambulatory subject supports the diagnosis of Diabetes Mellitus. Performed By: #### C BC, PT, PTT, CMP #### [facility] [address] Glucose mean value [Mass/vol ume] in Blood Estimated from glycated hemoglobinOrdered By: Justyn Spann on 04-09-2022 Average glucose Estimated from glycated hemoglobin (Bld) [Mass/Vol] 163 mg/dL [facility] Hemoglobin A1c percentageOrd ered By: Justyn Spann on 04-09-2022 HbA1c (Bld) [Mass fraction] 7.3 % 4.3-5.6 [facility] Comment on above: Increased risk for d iabetes: 5.7 - 6.4 diabetes: >6.4 glycemic control for adults with diabetes: <7.0 Lipid Panelon 04-09-2022 Cholesterol [Mass/Vol] 128 mg/dL Low 140-200 [facility] Comment on above: Result Comment: Chol less than 200 mg/dl low risk Chol 201-239 mg/dl borderline risk Chol 240 mg/dl and greater high risk Performed By: #### G LULS #### Point of Care testing , Cholesterol in HDL [Mass/Vol] 37 mg/dL Normal 35-85 [facility] Comment on above: Result Comment: HDL CHOL ATP-III CLASSIFICATION Cardiovascular Risk HDL > or equal to 60 mg/dL LOW HDL < 40 mg/dL HIGH Performed By: #### G LULS #### Point of Care testing , Cholesterol.total/Choles terol in HDL [Mass ratio] 3.5 {ratio} Normal <5.0 [facility] Comment on above: Result Comment: PERF ORMED BY: [facility] [address] [place] [address] PATHOLOGIST RIB BENDER GUIDO ELIZALDE M.D. Performed By: #### G LULS #### Point of Care testing , LDL Cholesterol,Calculated 68 mg/dL Normal 0-100 [facility] Comment on above: Result Comment: LDL ATP III CLASSIFICATION LDL less than 100 mg/dL Optimal LDL 100-129 mg/dL Near or above optimal LDL 130-159 mg/dL Borderline high LDL 160-189 mg/dL High LDL greater than 189 mg/dL Very high Performed By: #### G LULS #### Point of Care testing , Triglyceride w/Reflex 114 mg/dL Normal 35-149 [facility] Comment on above: Result Comment: TRIG ATP III CLASSIFICATION TRIG less than 150 mg/dL Normal TRIG 150-199 mg/dL Borderline high TRIG 200-500 mg/dL High TRIG greater than 500 mg/dL Very high Standard traceable to the Center for Disease Conrtrol and Prevention (CDC) test method. Performed By: #### G LULS #### Point of Care testing , VLDL CHOLESTEROL 22 mg/dL Normal [facility] Comment on above: Performed By: #### G LULS #### Point of Care testing , Serum or plasma high density lipoprotein (HDL) cholesterol measurementOrdered By: Justyn Spann on 04-09-2022 Cholesterol in HDL [Mass/Vol] 37 mg/dL 35-85 [facility] Comment on above: HDL CHOL ATP-III CLA SSIFICATION Cardiovascular Risk HDL > or equal to 60 mg/dL LOW HDL < 40 mg/dL HIGH Serum or plasma total choles terol/high density lipoprotein (HDL) cholesterol mass ratOrdered By: Justyn Spann on 04-09-2022 Cholesterol.total/Choles terol in HDL [Mass ratio] 3.5 {ratio} <5.0 [facility] Triglyceride [Mass/volume] i n Serum or PlasmaOrdered By: Justyn Spann on 04-09-2022 Triglyceride [Mass/Vol] 114 mg/dL 35-149 [facility] Comment on above: TRIG ATP III CLASSIF ICATION TRIG less than 150 mg/dL Normal TRIG 150-199 mg/dL Borderline high TRIG 200-500 mg/dL High TRIG greater than 500 mg/dL Very high Standard traceable to the Center for Disease Conrtrol and Prevention (CDC) test method. Albumin [Mass/volume] in Ser um or PlasmaOrdered By: Kingston Gao on 04-08-2022 Albumin [Mass/Vol] 2.6 g/dL Low 3.2-5.5 [facility] Comment on above: Performed By: #### C BC, PT, PTT, CMP #### [address] Automated basophil %Ordered By: Kingston Gao on 04-08-2022 Basophils/100 WBC (Bld) 0.6 % Normal . [facility] Comment on above: Performed By: #### C BC, PT, PTT, CMP #### [address] Automated basophil countOrde red By: Kingston Gao on 04-08-2022 Basophils (Bld) [#/Vol] 0.0 10*3/uL Normal 0.0-0.2 [facility] Comment on above: Result Comment: PERF ORMED BY: [place] [address] PATHOLOGIST RIB BENDER GUIDO ELIZALDE M.D. Performed By: #### C BC, PT, PTT, CMP #### [address] Automated blood lymphocyte c ount (number/volume)Ordered By: Kingston Gao on 04-08-2022 Lymphocytes (Bld) [#/Vol] 2.0 10*3/uL Normal 1.00-4.8 [facility] Comment on above: Performed By: #### C BC, PT, PTT, CMP #### [address] Automated blood lymphocyte c ount as percentage of total leukocytesOrdered By: Kingston Gao on 04-08-2022 Lymphocytes/100 WBC (Bld) 26.1 % Normal . [facility] Comment on above: Performed By: #### C BC, PT, PTT, CMP #### [address] Automated blood monocyte cou ntOrdered By: Kingston Gao on 04-08-2022 Monocytes (Bld) [#/Vol] 0.7 10*3/uL Normal 0.0-0.8 [facility] Comment on above: Performed By: #### C BC, PT, PTT, CMP #### [address] [place] [address] [place] Automated blood platelet cou nt (count/volume)Ordered By: Kingston Gao on 04-08-2022 Platelets (Bld) [#/Vol] 285 10*3/uL Normal 150-450 [facility] Comment on above: Performed By: #### C BC, PT, PTT, CMP #### [address] Automated blood platelet juliana n volume measurementOrdered By: Kingston Gao on 04-08-2022 Platelet mean volume (Bld) [Entitic vol] 8.4 fL Normal 6.3-10.7 [facility] Comment on above: Performed By: #### C BC, PT, PTT, CMP #### [address] Automated eosinophil %Ordere d By: Kingston Gao on 04-08-2022 Eosinophils/100 WBC (Bld) 2.7 % Normal . [facility] Comment on above: Performed By: #### C BC, PT, PTT, CMP #### [address] Automated eosinophil countOr dered By: Kingston Gao on 04-08-2022 Eosinophils (Bld) [#/Vol] 0.2 10*3/uL Normal 0.0-0.45 [facility] Comment on above: Performed By: #### C BC, PT, PTT, CMP #### [address] Automated erythrocyte distri bution width ratioOrdered By: Kingston Gao on 04-08-2022 Erythrocyte distribution width (RBC) [Ratio] 14.0 % Normal 11.9-15.3 [facility] Comment on above: Performed By: #### C BC, PT, PTT, CMP #### [address] Automated erythrocyte mean c orpuscular hemoglobin (mass per erythrocyte)Ordered By: Kingston Gao on 04-08-2022 MCH (RBC) [Entitic mass] 30.4 pg Normal 24.7-34.3 [facility] Comment on above: Performed By: #### C BC, PT, PTT, CMP #### [address] Automated erythrocyte mean c orpuscular volumeOrdered By: Kingston Gao on 04-08-2022 MCV (RBC) [Entitic vol] 92.2 fL Normal 80-100 [facility] Comment on above: Performed By: #### C BC, PT, PTT, CMP #### [address] Automated monocyte %Ordered By: Kingston Gao on 04-08-2022 Monocytes/100 WBC (Bld) 9.4 % Normal . [facility] Comment on above: Performed By: #### C BC, PT, PTT, CMP #### [address] Automated neutrophil %Ordere d By: Kingston aGo on 04-08-2022 Neutrophils/100 WBC (Bld) 61.2 % Normal . [facility] Comment on above: Performed By: #### C BC, PT, PTT, CMP #### [address] Blood erythrocytes automated count (number/volume)Ordered By: Kingston Gao on 04-08-2022 RBC (Bld) [#/Vol] 3.69 10*6/uL Normal 3.60-5.00 [facility] Comment on above: Performed By: #### C BC, PT, PTT, CMP #### [address] Blood hemoglobin measurement (mass/volume)Ordered By: Kingston Gao on 04-08-2022 Hemoglobin (Bld) [Mass/Vol] 11.2 g/dL Low 11.8-15.4 [facility] Comment on above: Performed By: #### C BC, PT, PTT, CMP #### [address] Blood leukocytes automated c ount (number/volume)Ordered By: Kingston Gao on 04-08-2022 WBC (Bld) [#/Vol] 7.6 10*3/uL Normal 4.5-11.0 [facility] Comment on above: Performed By: #### C BC, PT, PTT, CMP #### [address] Blood neutrophil count by au tomated method (number/volume)Ordered By: Kingston Gao on 04-08-2022 Neutrophils (Bld) [#/Vol] 4.7 10*3/uL Normal 1.8-7.7 [facility] Comment on above: Performed By: #### C BC, PT, PTT, CMP #### [address] Complete Blood Count Auto Di ffon 04-08-2022 Mean Corpuscular HGB Conc 33.0 g/dL Normal 32.0-35.0 [facility] Comment on above: Performed By: #### C BC, PT, PTT, CMP #### [address] Complete Blood Count Auto Di ffOrdered By: Kingston Gao on 04-08-2022 Nucleated RBC/100 WBC (Bld) [Ratio] 0.1 % Normal 0-0.5 [facility] Comment on above: Performed By: #### C BC, PT, PTT, CMP #### [address] Comprehensive Metabolic Pane sadiq 04-08-2022 ALT [Catalytic activity/Vol] 17 U/L Normal 10-60 [facility] Comment on above: Performed By: #### C BC, PT, PTT, CMP #### [address] Creatinine Clr Calc Pharmacy 57.76 Normal [facility] Comment on above: Performed By: #### C BC, PT, PTT, CMP #### [address] Estimated GFR ( Froylan > 60 Normal [facility] Comment on above: Result Comment: GFR estimated reference range: According to KDOQI guidelines, <60 ml/min/1.73m2 is sufficient to diagnose a patient with chronic kidney disease. Performed By: #### C BC, PT, PTT, CMP #### [facility] [address] Estimated GFR (Non- Am > 60 Normal [facility] Comment on above: Performed By: #### C BC, PT, PTT, CMP #### [facility] [address] Estimated glomerular filtrat ion rate (GFR) non- AmericanOrdered By: Kingston Gao on 04-08-2022 GFR/1.73 sq M.predicted among non-blacks MDRD (S/P/Bld) [Vol rate/Area] > 60 mL/Min [facility] Glucose Poct Glucometerson 0 04-08-2022 Glucose [Mass/Vol] 83 mg/dL Normal [facility] Comment on above: Result Comment: [facility] Glucose Reference Range is dependent on time and content of last meal. Glucose of more than 200 mg/dL in a nonstressed, ambulatory subject supports the diagnosis of Diabetes Mellitus. PERFORMED BY: [place] [address] PATHOLOGIST RIB BENDER GUIDO ELIZALDE M.D. Performed By: #### G LULS #### Point of Care testing , Glucose [Mass/Vol] 115 mg/dL Normal [facility] Comment on above: Result Comment: [facility] Glucose Reference Range is dependent on time and content of last meal. Glucose of more than 200 mg/dL in a nonstressed, ambulatory subject supports the diagnosis of Diabetes Mellitus. PERFORMED BY: [place] [address] PATHOLOGIST RIB BENDER GUIDO ELIZALDE M.D. Performed By: #### C BC, PT, PTT, CMP #### [facility] [address] Hematocrit [Volume Fraction] of Blood by Automated countOrdered By: Kingston Gao on 04-08-2022 Hematocrit (Bld) [Volume fraction] 34.0 % Normal 34.0-46.4 [facility] Comment on above: Performed By: #### C BC, PT, PTT, CMP #### [facility] [address] MCHC Auto (RBC) [Mass/Vol]Or dered By: Kingston Gao on 04-08-2022 MCHC (RBC) [Mass/Vol] 33.0 g/dL 32.0-35.0 [facility] No Panel InformationOrdered By: Kingston Gao on 04-08-2022 Estimated GFR () > 60 mL/Min [facility] Comment on above: GFR estimated refere nce range: According to KDOQI guidelines, <60 ml/min/1.73m2 is sufficient to diagnose a patient with chronic kidney disease. Pharmacy Creatinine Clearance (Chem 57.76 [facility] Protein [Mass/volume] in Ser um or PlasmaOrdered By: Kingston Gao on 04-08-2022 Protein [Mass/Vol] 5.6 g/dL Low 6.1-7.9 [facility] Comment on above: Performed By: #### C BC, PT, PTT, CMP #### [facility] [address] Serum globulin measurement b y calculation (mass/volume)Ordered By: Kingston Gao on 04-08-2022 Globulin (S) [Mass/Vol] 3.0 g/dL Normal [facility] Comment on above: Performed By: #### C BC, PT, PTT, CMP #### [address] Serum or plasma alanine [place] otransferase measurement without P-5'-P (enzymatic activiOrdered By: Kingston Gao on 04-08-2022 ALT No additional P-5'-P [Catalytic activity/Vol] 17 U/L 10-60 [facility] Serum or plasma albumin/glob ulin mass ratioOrdered By: Kingston Gao on 04-08-2022 Albumin/Globulin [Mass ratio] 0.9 {ratio} Normal [facility] Comment on above: Performed By: #### C BC, PT, PTT, CMP #### [address] Serum or plasma alkaline dolly sphatase measurement (enzymatic activity/volume)Ordered By: Kingston Goa on 04-08-2022 ALP [Catalytic activity/Vol] 56 U/L Normal 32-92 [facility] Comment on above: Performed By: #### C BC, PT, PTT, CMP #### [facility] [address] Serum or plasma aspartate am inotransferase measurement (enzymatic activity/volume)Ordered By: Kingston Gao on 04-08-2022 AST [Catalytic activity/Vol] 18 U/L Normal 10-42 [facility] Comment on above: Performed By: #### C BC, PT, PTT, CMP #### [facility] [address] Serum or plasma calcium nakul urement (mass/volume)Ordered By: Kingston Gao on 04-08-2022 Calcium [Mass/Vol] 9.2 mg/dL Normal 8.2-10.2 [facility] Comment on above: Performed By: #### C BC, PT, PTT, CMP #### [address] Serum or plasma chloride juliana surement (moles/volume)Ordered By: Kingston Gao on 04-08-2022 Chloride [Moles/Vol] 101 mmol/L Normal 95-114 [facility] Comment on above: Performed By: #### C BC, PT, PTT, CMP #### [address] Serum or plasma creatinine m easurement with calculation of estimated glomerular filtrOrdered By: Kingston Gao on 04-08-2022 Creatinine [Mass/Vol] 0.72 mg/dL Normal 0.44-1.03 [facility] Comment on above: Performed By: #### C BC, PT, PTT, CMP #### [address] Serum or plasma glucose nakul urement (mass/volume)Ordered By: Kingston Gao on 04-08-2022 Glucose [Mass/Vol] 119 mg/dL High 70-100 [facility] Comment on above: ADA recommended refe rence range Random Glucose Reference Range is dependent on time and content of last meal. Glucose of more than 200 mg/dL in a nonstressed, ambulatory subject supports the diagnosis of Diabetes Mellitus. Result Comment: [facility] Glucose Reference Range is dependent on time and content of last meal. Glucose of more than 200 mg/dL in a nonstressed, ambulatory subject supports the diagnosis of Diabetes Mellitus. ADA recommended reference range Performed By: #### C BC, PT, PTT, CMP #### [address] Serum or plasma potassium me asurement (moles/volume)Ordered By: Kingston Gao on 04-08-2022 Potassium [Moles/Vol] 4.2 mmol/L Normal 3.5-5.1 [facility] Comment on above: Performed By: #### C BC, PT, PTT, CMP #### [address] Serum or plasma prealbumin m easurement (mass/volume)Ordered By: Kingston Gao on 04-08-2022 Prealbumin [Mass/Vol] 15.9 mg/dL Low 18.0-38.0 [facility] Comment on above: Result Comment: PERF ORMED BY: [place] [address] PATHOLOGIST RIB BENDER GUIDO ELIZALDE M.D. Performed By: #### C BC, PT, PTT, CMP #### [address] Serum or plasma sodium measu rement (moles/volume)Ordered By: Kingston Gao on 04-08-2022 Sodium [Moles/Vol] 138 mmol/L Normal 136-146 [facility] Comment on above: Performed By: #### C BC, PT, PTT, CMP #### [address] Serum or plasma total biliru bin measurement (mass/volume)Ordered By: Kingston Gao on 04-08-2022 Bilirubin [Mass/Vol] 0.5 mg/dL Normal 0.3-1.2 [facility] Comment on above: Performed By: #### C BC, PT, PTT, CMP #### [address] [place] [address] [place] Serum or plasma total carbon dioxide measurement (moles/volume)Ordered By: Kingston Gao on 04-08-2022 CO2 [Moles/Vol] 28.4 mmol/L Normal 22.0-30.0 [facility] Comment on above: Performed By: #### C BC, PT, PTT, CMP #### [facility] [address] Serum or plasma urea nitroge n measurement (mass/volume)Ordered By: Kingston Gao on 04-08-2022 Urea nitrogen [Mass/Vol] 7 mg/dL Low - [facility] Comment on above: Performed By: #### C BC, PT, PTT, CMP #### [facility] [address] Glucose Poct Glucometerson 0 04-07-2022 Glucose [Mass/Vol] 161 mg/dL Normal [facility] Comment on above: Result Comment: [facility] Glucose Reference Range is dependent on time and content of last meal. Glucose of more than 200 mg/dL in a nonstressed, ambulatory subject supports the diagnosis of Diabetes Mellitus. PERFORMED BY: [place] [address] PATHOLOGIST RIB BENDER GUIDO ELIZALDE M.D. Performed By: #### C BC, PT, PTT, CMP #### [address] Glucose [Mass/Vol] 110 mg/dL Normal [facility] Comment on above: Result Comment: [facility] Glucose Reference Range is dependent on time and content of last meal. Glucose of more than 200 mg/dL in a nonstressed, ambulatory subject supports the diagnosis of Diabetes Mellitus. PERFORMED BY: [place] [address] PATHOLOGIST RIB BENDER GUIDO ELIZALDE M.D. Performed By: #### G LULS #### Point of Care testing , Urine culture routineOrdered By: Kieran Scott on 03-29-2022 Bacteria identified Cx Nom (U) 2 Days [facility] Albumin [Mass/volume] in Ser um or PlasmaOrdered By: Kieran Scott on 03-28-2022 Albumin [Mass/Vol] 2.8 g/dL 3.2-5.5 [facility] Basophils Auto (Bld) [#/Vol] Ordered By: Kieran Benjaminmood on 03-28-2022 Basophils (Bld) [#/Vol] 0.0 10*3/uL 0.0-0.2 [facility] Basophils/100 WBC Auto (Bld) Ordered By: Kieran Benjaminmood on 03-28-2022 Basophils/100 WBC (Bld) 0.6 % . [facility] Blood hemoglobin measurement (mass/volume)Ordered By: Kieran Scott on 03-28-2022 Hemoglobin (Bld) [Mass/Vol] 13.1 g/dL 11.8-15.4 [facility] Blood leukocytes automated c ount (number/volume)Ordered By: Kieran Scott on 03-28-2022 WBC (Bld) [#/Vol] 7.1 10*3/uL 4.5-11.0 [facility] Complete Blood Count Auto Di ffon 03-28-2022 Basophils (Bld) [#/Vol] 0.0 10*3/uL Normal 0.0-0.2 [facility] Comment on above: Result Comment: PERF ORMED BY: [facility] [address] [place] [address] PATHOLOGIST RIB BENDER GUIDO ELIZALDE M.D. Performed By: #### G LULS #### Point of Care testing , Basophils/100 WBC (Bld) 0.6 % Normal . [facility] Comment on above: Performed By: #### G LULS #### Point of Care testing , Eosinophils (Bld) [#/Vol] 0.3 10*3/uL Normal 0.0-0.45 [facility] Comment on above: Performed By: #### G LULS #### Point of Care testing , Eosinophils/100 WBC (Bld) 3.9 % Normal . [facility] Comment on above: Performed By: #### G CLEMENTLS #### Point of Care testing , Erythrocyte distribution width (RBC) [Ratio] 13.7 % Normal 11.9-15.3 [facility] Comment on above: Performed By: #### G CLEMENTLS #### Point of Care testing , Hematocrit (Bld) [Volume fraction] 38.7 % Normal 34.0-46.4 [facility] Comment on above: Performed By: #### G CLEMENTLS #### Point of Care testing , Hemoglobin (Bld) [Mass/Vol] 13.1 g/dL Normal 11.8-15.4 [facility] Comment on above: Performed By: #### G CLEMENTLS #### Point of Care testing , Lymphocytes (Bld) [#/Vol] 2.7 10*3/uL Normal 1.00-4.8 [facility] Comment on above: Performed By: #### G CLEMENTLS #### Point of Care testing , Lymphocytes/100 WBC (Bld) 37.6 % Normal . [facility] Comment on above: Performed By: #### G CLEMENTLS #### Point of Care testing , MCH (RBC) [Entitic mass] 30.7 pg Normal 24.7-34.3 [facility] Comment on above: Performed By: #### G CLEMENTLS #### Point of Care testing , MCV (RBC) [Entitic vol] 90.6 fL Normal 80-100 [facility] Comment on above: Performed By: #### G CLEMENTLS #### Point of Care testing , Mean Corpuscular HGB Conc 33.9 g/dL Normal 32.0-35.0 [facility] Comment on above: Performed By: #### G CLEMENTLS #### Point of Care testing , Monocytes (Bld) [#/Vol] 0.6 10*3/uL Normal 0.0-0.8 [facility] Comment on above: Performed By: #### G CLEMENTLS #### Point of Care testing , Monocytes/100 WBC (Bld) 8.5 % Normal . [facility] Comment on above: Performed By: #### G LULS #### Point of Care testing , Neutrophils (Bld) [#/Vol] 3.5 10*3/uL Normal 1.8-7.7 [facility] Comment on above: Performed By: #### G INOCENTE #### Point of Care testing , Neutrophils/100 WBC (Bld) 49.4 % Normal . [facility] Comment on above: Performed By: #### G CLEMENTLS #### Point of Care testing , Nucleated RBC/100 WBC (Bld) [Ratio] 0.2 % Normal 0-0.5 [facility] Comment on above: Performed By: #### G INOCENTE #### Point of Care testing , Platelet mean volume (Bld) [Entitic vol] 8.8 fL Normal 6.3-10.7 [facility] Comment on above: Performed By: #### G INOCENTE #### Point of Care testing , Platelets (Bld) [#/Vol] 245 10*3/uL Normal 150-450 [facility] Comment on above: Performed By: #### G INOCENTE #### Point of Care testing , RBC (Bld) [#/Vol] 4.27 10*6/uL Normal 3.60-5.00 [facility] Comment on above: Performed By: #### G INOCENTE #### Point of Care testing , WBC (Bld) [#/Vol] 7.1 10*3/uL Normal 4.5-11.0 [facility] Comment on above: Performed By: #### G INOCENTE #### Point of Care testing , Comprehensive Metabolic Pane sadiq 03-28-2022 Alanine Aminotransferase Normal 10-60 [facility] Comment on above: Result Comment: Unac ceptable specimen due to hemolysis. Redraw reordered. Performed By: #### G INOCENTE #### Point of Care testing , Albumin [Mass/Vol] 2.8 g/dL Low 3.2-5.5 [facility] Comment on above: Performed By: #### G INOCENTE #### Point of Care testing , Albumin/Globulin [Mass ratio] 1.0 {ratio} Normal [facility] Comment on above: Performed By: #### G LULS #### Point of Care testing , Alkaline Phosphatase Normal 32-92 [facility] Comment on above: Result Comment: Unac ceptable specimen due to hemolysis. Redraw reordered. Performed By: #### G LULS #### Point of Care testing , Aspartate Amino Transferase Normal 10-42 [facility] Comment on above: Result Comment: Unac ceptable specimen due to hemolysis. Redraw reordered. Performed By: #### G LULS #### Point of Care testing , Bilirubin,Total Normal 0.3-1.2 [facility] Comment on above: Result Comment: Unac ceptable specimen due to hemolysis. Redraw reordered. Performed By: #### G LULS #### Point of Care testing , Calcium [Mass/Vol] 8.8 mg/dL Normal 8.2-10.2 [facility] Comment on above: Performed By: #### G LULS #### Point of Care testing , Chloride [Moles/Vol] 104 mmol/L Normal 95-114 [facility] Comment on above: Performed By: #### G LULS #### Point of Care testing , CO2 [Moles/Vol] 25.7 mmol/L Normal 22.0-30.0 [facility] Comment on above: Performed By: #### G LULS #### Point of Care testing , Creatinine [Mass/Vol] 0.74 mg/dL Normal 0.44-1.03 [facility] Comment on above: Performed By: #### G LULS #### Point of Care testing , Creatinine Clr Calc Pharmacy 53.72 [facility] Comment on above: Result Comment: PERF ORMED BY: [facility] [address] [place] [address] PATHOLOGIST RIB BENDER GUIDO ELIZALDE M.D. Performed By: #### G LULS #### Point of Care testing , Estimated GFR ( Froylan > 60 Normal [facility] Comment on above: Result Comment: GFR estimated reference range: According to KDOQI guidelines, <60 ml/min/1.73m2 is sufficient to diagnose a patient with chronic kidney disease. Performed By: #### G LULS #### Point of Care testing , Estimated GFR (Non- Am > 60 Normal [facility] Comment on above: Performed By: #### G LULS #### Point of Care testing , Globulin (S) [Mass/Vol] 2.9 g/dL Normal [facility] Comment on above: Performed By: #### G LULS #### Point of Care testing , Glucose [Mass/Vol] 193 mg/dL High 70-100 [facility] Comment on above: Result Comment: [facility] Glucose Reference Range is dependent on time and content of last meal. Glucose of more than 200 mg/dL in a nonstressed, ambulatory subject supports the diagnosis of Diabetes Mellitus. ADA recommended reference range Performed By: #### G LULS #### Point of Care testing , Potassium Normal 3.5-5.1 [facility] Comment on above: Result Comment: Unac ceptable specimen due to hemolysis. Redraw reordered. Performed By: #### G LULS #### Point of Care testing , Protein [Mass/Vol] 5.7 g/dL Low 6.1-7.9 [facility] Comment on above: Performed By: #### G LULS #### Point of Care testing , Sodium [Moles/Vol] 138 mmol/L Normal 136-146 [facility] Comment on above: Performed By: #### G LULS #### Point of Care testing , Urea nitrogen [Mass/Vol] 18 mg/dL Normal 9-23 [facility] Comment on above: Performed By: #### G LULS #### Point of Care testing , Creatinine and Glomerular fi ltration rate.predicted panel (S/P/Bld)Ordered By: Kieran Scott on 03-28-2022 Creatinine [Mass/Vol] 0.74 mg/dL 0.44-1.03 [facility] Eosinophils Auto (Bld) [#/Vo l]Ordered By: Kieran Scott on 03-28-2022 Eosinophils (Bld) [#/Vol] 0.3 10*3/uL 0.0-0.45 [facility] Eosinophils/100 WBC Auto (Bl d)Ordered By: Kieran Scott on 03-28-2022 Eosinophils/100 WBC (Bld) 3.9 % . [facility] Erythrocyte distribution wid th Auto (RBC) [Ratio]Ordered By: Kieran Scott on 03-28-2022 Erythrocyte distribution width (RBC) [Ratio] 13.7 % 11.9-15.3 [facility] Estimated glomerular filtrat ion rate (GFR) non- AmericanOrdered By: Kieran Scott on 03-28-2022 GFR/1.73 sq M.predicted among non-blacks MDRD (S/P/Bld) [Vol rate/Area] > 60 mL/Min [facility] Globulin Calc (S) [Mass/Vol] Ordered By: Kieran Scott on 03-28-2022 Globulin (S) [Mass/Vol] 2.9 g/dL [facility] Glucose Glucometer (BldC) [M ass/Vol]Ordered By: Rupert Anthony on 03-28-2022 Glucose [Mass/Vol] 236 mg/dL [facility] Comment on above: Random Glucose Refer ence Range is dependent on time and content of last meal. Glucose of more than 200 mg/dL in a nonstressed, ambulatory subject supports the diagnosis of Diabetes Mellitus. Glucose Poct Glucometerson 0 03-28-2022 Commemt1 Glu2: Cleaned Meter Normal [facility] Comment on above: Result Comment: PERF ORMED BY: [place] [address] PATHOLOGIST RIB BENDER GUIDO ELIZALDE M.D. Performed By: #### C BC, PT, PTT, CMP #### [address] Glucose [Mass/Vol] 236 mg/dL Normal [facility] Comment on above: Result Comment: [place] Glucose Reference Range is dependent on time and content of last meal. Glucose of more than 200 mg/dL in a nonstressed, ambulatory subject supports the diagnosis of Diabetes Mellitus. Performed By: #### C BC, PT, PTT, CMP #### [facility] [address] Glucose [Mass/Vol] 193 mg/dL Normal [facility] Comment on above: Result Comment: [facility] Glucose Reference Range is dependent on time and content of last meal. Glucose of more than 200 mg/dL in a nonstressed, ambulatory subject supports the diagnosis of Diabetes Mellitus. PERFORMED BY: [facility] [address] [place] [address] PATHOLOGIST RIB BENDER GUIDO ELIZALDE M.D. Performed By: #### C BC, PT, PTT, CMP #### [facility] [address] Hematocrit Auto (Bld) [Volum e fraction]Ordered By: Kieran Scott on 03-28-2022 Hematocrit (Bld) [Volume fraction] 38.7 % 34.0-46.4 [facility] Laboratory - Chemistry and C hemistry - challengeOrdered By: Kieran Scott on 03-28-2022 AST [Catalytic activity/Vol] 24 U/L 10-42 [facility] - Hematology and Cell countsOrdered By: Kieran Scott on 03-28-2022 Nucleated RBC/100 WBC (Bld) [Ratio] 0.2 % 0-0.5 [facility] Lymphocytes Auto (Bld) [#/Vo l]Ordered By: Kieran Scott on 03-28-2022 Lymphocytes (Bld) [#/Vol] 2.7 10*3/uL 1.00-4.8 [facility] Lymphocytes/100 WBC Auto (Bl d)Ordered By: Kieran Scott on 03-28-2022 Lymphocytes/100 WBC (Bld) 37.6 % . [facility] MCH Auto (RBC) [Entitic mass ]Ordered By: Kieran Scott on 03-28-2022 MCH (RBC) [Entitic mass] 30.7 pg 24.7-34.3 [facility] MCHC Auto (RBC) [Mass/Vol]Or dered By: Kieran cSott on 03-28-2022 MCHC (RBC) [Mass/Vol] 33.9 g/dL 32.0-35.0 [facility] MCV Auto (RBC) [Entitic vol] Ordered By: Kieran Scott on 03-28-2022 MCV (RBC) [Entitic vol] 90.6 fL 80-100 [facility] Monocytes Auto (Bld) [#/Vol] Ordered By: Kieran Tyler on 03-28-2022 Monocytes (Bld) [#/Vol] 0.6 10*3/uL 0.0-0.8 [facility] Monocytes/100 WBC Auto (Bld) Ordered By: Kieran Scott on 03-28-2022 Monocytes/100 WBC (Bld) 8.5 % . [facility] Neutrophils Auto (Bld) [#/Vo l]Ordered By: Kieran Benjaminmood on 03-28-2022 Neutrophils (Bld) [#/Vol] 3.5 10*3/uL 1.8-7.7 [facility] Neutrophils/100 WBC Auto (Bl d)Ordered By: Kieran cSott on 03-28-2022 Neutrophils/100 WBC (Bld) 49.4 % . [facility] No Panel InformationOrdered By: Rupert Anthony on 03-28-2022 Bedside Glucose Comment Glu2: cleaned meter [facility] No Panel InformationOrdered By: Kieran Scott on 03-28-2022 Estimated GFR () > 60 mL/Min [facility] Comment on above: GFR estimated refere nce range: According to KDOQI guidelines, <60 ml/min/1.73m2 is sufficient to diagnose a patient with chronic kidney disease. Pharmacy Creatinine Clearance (Chem 53.72 [facility] Platelet mean volume Auto (B ld) [Entitic vol]Ordered By: Kieran Tyler on 03-28-2022 Platelet mean volume (Bld) [Entitic vol] 8.8 fL 6.3-10.7 [facility] Platelets Auto (Bld) [#/Vol] Ordered By: Kieran Tyler on 03-28-2022 Platelets (Bld) [#/Vol] 245 10*3/uL 150-450 [facility] Protein [Mass/volume] in Ser um or PlasmaOrdered By: Kieran Scott on 03-28-2022 Protein [Mass/Vol] 5.7 g/dL 6.1-7.9 [facility] RBC Auto (Bld) [#/Vol]Ordere d By: Kieran Scott on 03-28-2022 RBC (Bld) [#/Vol] 4.27 10*6/uL 3.60-5.00 [facility] Redraw Jadyn 03-28-2022 ALT [Catalytic activity/Vol] 25 U/L Normal 10-60 [facility] Comment on above: Order Comment: REDRA W Performed By: #### G LULS #### Point of Care testing , Redraw Tripp 03-28-2022 AST [Catalytic activity/Vol] 24 U/L Normal 10-42 [facility] Comment on above: Order Comment: REDRA W Performed By: #### G LULS #### Point of Care testing , Redraw Alkaline Phosphataseo n 03-28-2022 ALP [Catalytic activity/Vol] 50 U/L Normal 32-92 [facility] Comment on above: Order Comment: REDRA W Result Comment: PERF ORMED BY: [facility] [address] [place] [address] PATHOLOGIST RIB BENDER GUIDO ELIZALDE M.D. Performed By: #### G LULS #### Point of Care testing , Redraw Bilirubin,Totalon Bilirubin [Mass/Vol] 0.8 mg/dL Normal 0.3-1.2 [facility] Comment on above: Order Comment: REDRA W Performed By: #### G LULS #### Point of Care testing , Redraw Potassiumon 2 Potassium [Moles/Vol] 4.7 mmol/L Normal 3.5-5.1 [facility] Comment on above: Order Comment: REDRA W Performed By: #### G LULS #### Point of Care testing , Serum or plasma alanine [place] otransferase measurement without P-5'-P (enzymatic activiOrdered By: Kieran Scott on 03-28-2022 ALT No additional P-5'-P [Catalytic activity/Vol] 25 U/L 10-60 [facility] Serum or plasma albumin/glob ulin mass ratioOrdered By: Kieran Sctot on 03-28-2022 Albumin/Globulin [Mass ratio] 1.0 {ratio} [facility] Serum or plasma alkaline dolly sphatase measurement (enzymatic activity/volume)Ordered By: Kieran Scott on 03-28-2022 ALP [Catalytic activity/Vol] 50 U/L 32-92 [facility] Serum or plasma calcium nakul urement (mass/volume)Ordered By: Kieran Scott on 03-28-2022 Calcium [Mass/Vol] 8.8 mg/dL 8.2-10.2 [facility] Serum or plasma chloride juliana surement (moles/volume)Ordered By: Kieran Scott on 03-28-2022 Chloride [Moles/Vol] 104 mmol/L 95-114 [facility] Serum or plasma glucose nakul urement (mass/volume)Ordered By: Kieran Scott on 03-28-2022 Glucose [Mass/Vol] 193 mg/dL 70-100 [facility] Comment on above: ADA recommended refe rence range Random Glucose Reference Range is dependent on time and content of last meal. Glucose of more than 200 mg/dL in a nonstressed, ambulatory subject supports the diagnosis of Diabetes Mellitus. Serum or plasma potassium me asurement (moles/volume)Ordered By: Kieran Scott on 03-28-2022 Potassium [Moles/Vol] 4.7 mmol/L 3.5-5.1 [facility] Serum or plasma sodium measu rement (moles/volume)Ordered By: Kieran Scott on 03-28-2022 Sodium [Moles/Vol] 138 mmol/L 136-146 [facility] Serum or plasma total biliru bin measurement (mass/volume)Ordered By: Kieran Scott on 03-28-2022 Bilirubin [Mass/Vol] 0.8 mg/dL 0.3-1.2 [facility] Serum or plasma total carbon dioxide measurement (moles/volume)Ordered By: Kieran Tyler on 03-28-2022 CO2 [Moles/Vol] 25.7 mmol/L 22.0-30.0 [facility] Serum or plasma urea nitroge n measurement (mass/volume)Ordered By: Kieran Tyler on 03-28-2022 Urea nitrogen [Mass/Vol] 18 mg/dL 9-23 [facility] Automated erythrocytes count in urine sediment (number/area)Ordered By: Kieranreyes Scott on 03-27-2022 RBC Auto (Urine sed) [#/Area] 10-19 [HPF] 0-4 [facility] Automated leukocytes count i n urine sediment (number/area)Ordered By: Kieran Tyler on 03-27-2022 WBC Auto (Urine sed) [#/Area] 5-9 [HPF] 0-4 [facility] Bilirubin Test strip Ql (U)O rdered By: Kieranreyes Scott on 03-27-2022 Bilirubin Ql (U) Negative Negative [facility] Color Auto (U)Ordered By: Vivek Scott on 03-27-2022 Color (U) Yellow Yellow [facility] Complete Blood Count Auto Di ffon 03-27-2022 Basophils (Bld) [#/Vol] 0.0 10*3/uL Normal 0.0-0.2 [facility] Comment on above: Result Comment: PERF ORMED BY: [place] [address] PATHOLOGIST RIB BENDER GUIDO ELIZALDE M.D. Performed By: #### C BC, PT, PTT, CMP #### [facility] [address] [place] [address] [place] Basophils/100 WBC (Bld) 0.4 % Normal . [facility] Comment on above: Performed By: #### C BC, PT, PTT, CMP #### [facility] [address] [place] [address] [place] Eosinophils (Bld) [#/Vol] 0.3 10*3/uL Normal 0.0-0.45 [facility] Comment on above: Performed By: #### C BC, PT, PTT, CMP #### [address] Eosinophils/100 WBC (Bld) 4.2 % Normal . [facility] Comment on above: Performed By: #### C BC, PT, PTT, CMP #### [address] Erythrocyte distribution width (RBC) [Ratio] 13.8 % Normal 11.9-15.3 [facility] Comment on above: Performed By: #### C BC, PT, PTT, CMP #### [address] Hematocrit (Bld) [Volume fraction] 40.4 % Normal 34.0-46.4 [facility] Comment on above: Performed By: #### C BC, PT, PTT, CMP #### [address] Hemoglobin (Bld) [Mass/Vol] 13.6 g/dL Normal 11.8-15.4 [facility] Comment on above: Performed By: #### C BC, PT, PTT, CMP #### [address] Lymphocytes (Bld) [#/Vol] 3.0 10*3/uL Normal 1.00-4.8 [facility] Comment on above: Performed By: #### C BC, PT, PTT, CMP #### [address] Lymphocytes/100 WBC (Bld) 36.2 % Normal . [facility] Comment on above: Performed By: #### C BC, PT, PTT, CMP #### [address] MCH (RBC) [Entitic mass] 30.7 pg Normal 24.7-34.3 [facility] Comment on above: Performed By: #### C BC, PT, PTT, CMP #### [address] MCV (RBC) [Entitic vol] 90.9 fL Normal 80-100 [facility] Comment on above: Performed By: #### C BC, PT, PTT, CMP #### [address] Mean Corpuscular HGB Conc 33.7 g/dL Normal 32.0-35.0 [facility] Comment on above: Performed By: #### C BC, PT, PTT, CMP #### [place] [address] [place] Monocytes (Bld) [#/Vol] 0.8 10*3/uL Normal 0.0-0.8 [facility] Comment on above: Performed By: #### C BC, PT, PTT, CMP #### [address] Monocytes/100 WBC (Bld) 9.6 % Normal . [facility] Comment on above: Performed By: #### C BC, PT, PTT, CMP #### [address] Neutrophils (Bld) [#/Vol] 4.1 10*3/uL Normal 1.8-7.7 [facility] Comment on above: Performed By: #### C BC, PT, PTT, CMP #### [address] Neutrophils/100 WBC (Bld) 49.6 % Normal . [facility] Comment on above: Performed By: #### C BC, PT, PTT, CMP #### [place] [address] [place] Nucleated RBC/100 WBC (Bld) [Ratio] 0.0 % Normal 0-0.5 [facility] Comment on above: Performed By: #### C BC, PT, PTT, CMP #### [address] Platelet mean volume (Bld) [Entitic vol] 8.6 fL Normal 6.3-10.7 [facility] Comment on above: Performed By: #### C BC, PT, PTT, CMP #### [facility] [place] [address] Platelets (Bld) [#/Vol] 240 10*3/uL Normal 150-450 [facility] Comment on above: Performed By: #### C BC, PT, PTT, CMP #### [address] RBC (Bld) [#/Vol] 4.45 10*6/uL Normal 3.60-5.00 [facility] Comment on above: Performed By: #### C BC, PT, PTT, CMP #### [address] WBC (Bld) [#/Vol] 8.2 10*3/uL Normal 4.5-11.0 [facility] Comment on above: Performed By: #### C BC, PT, PTT, CMP #### [address] Comprehensive Metabolic Pane sadiq 03-27-2022 Albumin [Mass/Vol] 2.9 g/dL Low 3.2-5.5 [facility] Comment on above: Performed By: #### C BC, PT, PTT, CMP #### [address] Albumin/Globulin [Mass ratio] 1.0 {ratio} Normal [facility] Comment on above: Performed By: #### C BC, PT, PTT, CMP #### [address] ALP [Catalytic activity/Vol] 51 U/L Normal 32-92 [facility] Comment on above: Performed By: #### C BC, PT, PTT, CMP #### [address] ALT [Catalytic activity/Vol] 26 U/L Normal 10-60 [facility] Comment on above: Performed By: #### C BC, PT, PTT, CMP #### [address] AST [Catalytic activity/Vol] 22 U/L Normal 10-42 [facility] Comment on above: Performed By: #### C BC, PT, PTT, CMP #### [facility] [address] Bilirubin [Mass/Vol] 0.8 mg/dL Normal 0.3-1.2 [facility] Comment on above: Performed By: #### C BC, PT, PTT, CMP #### [facility] [address] Calcium [Mass/Vol] 9.0 mg/dL Normal 8.2-10.2 [facility] Comment on above: Performed By: #### C BC, PT, PTT, CMP #### [facility] [place] [address] Chloride [Moles/Vol] 101 mmol/L Normal 95-114 [facility] Comment on above: Performed By: #### C BC, PT, PTT, CMP #### [address] CO2 [Moles/Vol] 27.1 mmol/L Normal 22.0-30.0 [facility] Comment on above: Performed By: #### C BC, PT, PTT, CMP #### [facility] [place] [address] Creatinine [Mass/Vol] 0.85 mg/dL Normal 0.44-1.03 [facility] Comment on above: Performed By: #### C BC, PT, PTT, CMP #### [facility] [address] [place] [address] Creatinine Clr Calc Pharmacy 50.56 [facility] Comment on above: Result Comment: PERF ORMED BY: [place] [address] PATHOLOGIST RIB BENDER GUIDO ELIZALDE M.D. Performed By: #### C BC, PT, PTT, CMP #### [address] Estimated GFR ( Froylan > 60 Normal [facility] Comment on above: Result Comment: GFR estimated reference range: According to KDOQI guidelines, <60 ml/min/1.73m2 is sufficient to diagnose a patient with chronic kidney disease. Performed By: #### C BC, PT, PTT, CMP #### [facility] [place] [address] Estimated GFR (Non- Am > 60 Normal [facility] Comment on above: Performed By: #### C BC, PT, PTT, CMP #### [facility] [place] [address] Globulin (S) [Mass/Vol] 3.0 g/dL Normal F [facility] Comment on above: Performed By: #### C BC, PT, PTT, CMP #### [address] Glucose [Mass/Vol] 177 mg/dL High 70-100 [facility] Comment on above: Result Comment: [place] Glucose Reference Range is dependent on time and content of last meal. Glucose of more than 200 mg/dL in a nonstressed, ambulatory subject supports the diagnosis of Diabetes Mellitus. ADA recommended reference range Performed By: #### C BC, PT, PTT, CMP #### [facility] [place] [address] Potassium [Moles/Vol] 4.0 mmol/L Normal 3.5-5.1 [facility] Comment on above: Performed By: #### C BC, PT, PTT, CMP #### [facility] [place] [address] Protein [Mass/Vol] 5.9 g/dL Low 6.1-7.9 [facility] Comment on above: Performed By: #### C BC, PT, PTT, CMP #### [facility] [place] [address] Sodium [Moles/Vol] 139 mmol/L Normal 136-146 [facility] Comment on above: Performed By: #### C BC, PT, PTT, CMP #### [facility] [place] [address] Urea nitrogen [Mass/Vol] 23 mg/dL Normal 9-23 [facility] Comment on above: Performed By: #### C BC, PT, PTT, CMP #### [place] [address] [place] Dipstick and Microscopicon 0 03-27-2022 Appearance (U) Clear Normal Clear [facility] Comment on above: Order Comment: Name Collection Type:: Clean-Voided Midstream Performed By: #### G LULS #### Point of Care testing , Bacteria,Urine None Seen Normal None Seen [facility] Comment on above: Order Comment: Name Collection Type:: Clean-Voided Midstream Performed By: #### G LULS #### Point of Care testing , Bilirubin,Urine Negative Normal Negative [facility] Comment on above: Order Comment: Name Collection Type:: Clean-Voided Midstream Performed By: #### G LULS #### Point of Care testing , Color (U) Yellow Normal Yellow [facility] Comment on above: Order Comment: Name Collection Type:: Clean-Voided Midstream Performed By: #### G LULS #### Point of Care testing , Glucose Ql (U) 500 mg/dL High Normal [facility] Comment on above: Order Comment: Name Collection Type:: Clean-Voided Midstream Performed By: #### G LULS #### Point of Care testing , Hyaline Casts,Urine None Seen Normal 0-8 [facility] Comment on above: Order Comment: Name Collection Type:: Clean-Voided Midstream Result Comment: PERF ORMED BY: [place] [address] PATHOLOGIST RIB BENDER GUIDO ELIZALDE M.D. Performed By: #### G LULS #### Point of Care testing , Ketones Ql (U) Negative Normal Negative [facility] Comment on above: Order Comment: Name Collection Type:: Clean-Voided Midstream Performed By: #### G LULS #### Point of Care testing , Leukocyte esterase Test strip Ql (U) 2+ High Negative [facility] Comment on above: Order Comment: Name Collection Type:: Clean-Voided Midstream Performed By: #### G LULS #### Point of Care testing , Nitrite,Urine Negative Normal Negative [facility] Comment on above: Order Comment: Name Collection Type:: Clean-Voided Midstream Performed By: #### G LULS #### Point of Care testing , Occult Blood,Urine 2+ High Negative [facility] Comment on above: Order Comment: Name Collection Type:: Clean-Voided Midstream Result Comment: PERF ORMED BY: [facility] [place] [address] PATHOLOGIST RIB BENDER GUIDO ELIZALDE M.D. Performed By: #### G LULS #### Point of Care testing , pH (U) 5.5 [pH] Normal 5.0-9.0 [facility] Comment on above: Order Comment: Name Collection Type:: Clean-Voided Midstream Performed By: #### G LULS #### Point of Care testing , Protein,Urine Negative Normal Negative [facility] Comment on above: Order Comment: Name Collection Type:: Clean-Voided Midstream Performed By: #### G LULS #### Point of Care testing , RBC,Urine 10-19 High 0-4 [facility] Comment on above: Order Comment: Name Collection Type:: Clean-Voided Midstream Performed By: #### G LULS #### Point of Care testing , Specificy [place],Urine 1.012 Normal 1.001-1.030 [facility] Comment on above: Order Comment: Name Collection Type:: Clean-Voided Midstream Performed By: #### G LULS #### Point of Care testing , Squamous Epithelial Cell,Urine 0-1 Normal 0-2 [facility] Comment on above: Order Comment: Name Collection Type:: Clean-Voided Midstream Performed By: #### G LULS #### Point of Care testing , Urobilinogen,Urine Normal Normal Normal [facility] Comment on above: Order Comment: Name Collection Type:: Clean-Voided Midstream Performed By: #### G LULS #### Point of Care testing , WBC,Urine 5-9 High 0-4 [facility] Comment on above: Order Comment: Name Collection Type:: Clean-Voided Midstream Performed By: #### G LULS #### Point of Care testing , Glucose Poct Glucometerson 0 03-27-2022 Glucose [Mass/Vol] 164 mg/dL Normal [facility] Comment on above: Result Comment: [place] om Glucose Reference Range is dependent on time and content of last meal. Glucose of more than 200 mg/dL in a nonstressed, ambulatory subject supports the diagnosis of Diabetes Mellitus. PERFORMED BY: [place] [address] PATHOLOGIST RIB BENDER GUIDO ELIZALDE M.D. Performed By: #### C BC, PT, PTT, CMP #### [address] Glucose [Mass/Vol] 222 mg/dL Normal [facility] Comment on above: Result Comment: [place] om Glucose Reference Range is dependent on time and content of last meal. Glucose of more than 200 mg/dL in a nonstressed, ambulatory subject supports the diagnosis of Diabetes Mellitus. PERFORMED BY: [place] [address] PATHOLOGIST RIB BENDER GUIDO ELIZALDE M.D. Performed By: #### C BC, PT, PTT, CMP #### [address] Glucose [Mass/Vol] 256 mg/dL Normal [facility] Comment on above: Result Comment: [place] om Glucose Reference Range is dependent on time and content of last meal. Glucose of more than 200 mg/dL in a nonstressed, ambulatory subject supports the diagnosis of Diabetes Mellitus. PERFORMED BY: [place] [address] PATHOLOGIST RIB BENDER GUIDO ELIZALDE M.D. Performed By: #### C BC, PT, PTT, CMP #### [place] [address] [place] Glucose [Mass/Vol] 202 mg/dL Normal [facility] Comment on above: Result Comment: [place] om Glucose Reference Range is dependent on time and content of last meal. Glucose of more than 200 mg/dL in a nonstressed, ambulatory subject supports the diagnosis of Diabetes Mellitus. PERFORMED BY: [place] [address] PATHOLOGIST RIB BENDER GUIDO ELIZALDE M.D. Performed By: #### C BC, PT, PTT, CMP #### [place] [id number] [facility] Ketones Auto test strip (U) [Mass/Vol]Ordered By: Kieran Tyler on 03-27-2022 Ketones (U) [Mass/Vol] Negative Negative [facility] - UrinalysisOrder ed By: Kieran Scott on 03-27-2022 Hyaline casts LM Ql (Urine sed) None seen [LPF] 0-8 [facility] Nitrite Test strip Ql (U)Ord ered By: Kieran Tyler on 03-27-2022 Nitrite Ql (U) Negative Negative [facility] Protein Auto test strip (U) [Mass/Vol]Ordered By: Kieran Tyler on 03-27-2022 Protein (U) [Mass/Vol] Negative Negative [facility] Specific gravity Auto test s trip (U) [Rel density]Ordered By: Kieran Tyler on 03-27-2022 Specific gravity (U) [Rel density] 1.012 1.001-1.030 [facility] Squamous epithelial cells de tection in urine sediment by light microscopyOrdered By: Kieranreyes Scott on 03-27-2022 Epithelial cells.squamous LM Ql (Urine sed) 0-1 [HPF] 0-2 [facility] Urine Cultureon 03-27-2022 Bacteria identified Cx Nom (U) 75,000 colonies/ml mixed bacterial skin contaminants 2 Days PERFORMED BY: [place] [address] PATHOLOGIST RIB BENDER GUIDO ELIZALDE M.D. Normal [facility] Comment on above: Performed By: #### G LULS #### Point of Care testing , Urine bacteria detection by automated methodOrdered By: Kieran Scott on 03-27-2022 Bacteria Auto Ql (U) None seen None Seen [facility] Urine clarity by refractomet ry automatedOrdered By: Kieran Scott on 03-27-2022 Clarity Refractometry automated (U) Clear Clear [facility] Urine culture routineOrdered By: Kieran Scott on 03-27-2022 Bacteria identified Cx Nom (U) 2 Days [facility] Urine glucose measurement by automated test strip (mass/volume)Ordered By: Kieran Scott on 03-27-2022 Glucose Auto test strip (U) [Mass/Vol] 500 mg/dL Normal [facility] Urine hemoglobin detection b y automated test stripOrdered By: Kieran Scott on 03-27-2022 Hemoglobin Auto test strip Ql (U) 2+ Negative [facility] Urine leukocyte esterase det ection by automated test stripOrdered By: Kierna Scott on 03-27-2022 Leukocyte esterase Auto test strip Ql (U) 2+ Negative [facility] Urobilinogen Auto test strip (U) [Mass/Vol]Ordered By: Kieran Scott on 03-27-2022 Urobilinogen (U) [Mass/Vol] Normal mg/dL Normal [facility] pH Auto test strip (U)Ordere d By: Kieran Scott on 03-27-2022 pH (U) 5.5 [pH] 5.0-9.0 [facility] Glucose Poct Glucometerson 0 03-26-2022 Commemt1 Glu2: Cleaned Meter [facility] Comment on above: Result Comment: PERF ORMED BY: [facility] [address] [place] [address] PATHOLOGIST RIB BENDER GUIDO ELIZALDE M.D. Performed By: #### G LULS #### Point of Care testing , Glucose [Mass/Vol] 263 mg/dL Normal [facility] Comment on above: Result Comment: [facility] Glucose Reference Range is dependent on time and content of last meal. Glucose of more than 200 mg/dL in a nonstressed, ambulatory subject supports the diagnosis of Diabetes Mellitus. Performed By: #### G LULS #### Point of Care testing , Commemt1 Glu2: Cleaned Meter Normal [facility] Comment on above: Result Comment: PERF ORMED BY: [place] [address] PATHOLOGIST RIB BENDER GUIDO ELIZALDE M.D. Performed By: #### C BC, PT, PTT, CMP #### [address] Glucose [Mass/Vol] 232 mg/dL Normal [facility] Comment on above: Result Comment: [place] om Glucose Reference Range is dependent on time and content of last meal. Glucose of more than 200 mg/dL in a nonstressed, ambulatory subject supports the diagnosis of Diabetes Mellitus. Performed By: #### C BC, PT, PTT, CMP #### [address] Commemt1 Glu2: Cleaned Meter Normal [facility] Comment on above: Result Comment: PERF ORMED BY: [place] [address] PATHOLOGIST RIB BENDER GUIDO ELIZALDE M.D. Performed By: #### C BC, PT, PTT, CMP #### [place] [address] [place] Glucose [Mass/Vol] 283 mg/dL Normal [facility] Comment on above: Result Comment: [place] Glucose Reference Range is dependent on time and content of last meal. Glucose of more than 200 mg/dL in a nonstressed, ambulatory subject supports the diagnosis of Diabetes Mellitus. Performed By: #### C BC, PT, PTT, CMP #### [address] Commemt1 Glu2: Cleaned Meter [facility] Comment on above: Result Comment: PERF ORMED BY: [place] [address] PATHOLOGIST RIB BENDER GUIDO ELIZALDE M.D. Performed By: #### C BC, PT, PTT, CMP #### [place] [address] [place] Glucose [Mass/Vol] 191 mg/dL Normal [facility] Comment on above: Result Comment: [place] Glucose Reference Range is dependent on time and content of last meal. Glucose of more than 200 mg/dL in a nonstressed, ambulatory subject supports the diagnosis of Diabetes Mellitus. Performed By: #### C BC, PT, PTT, CMP #### [facility] [address] [place] [address] [place] Dipstick and Microscopicon 0 03-25-2022 Appearance (U) Clear Normal Clear [facility] Comment on above: Order Comment: Name Collection Type:: Claire Catheter Performed By: #### C BC, PT, PTT, CMP #### [facility] [address] [place] [address] [place] Bacteria,Urine None Seen Normal None Seen [facility] Comment on above: Order Comment: Name Collection Type:: Claire Catheter Performed By: #### C BC, PT, PTT, CMP #### [facility] [address] [place] [address] [place] Bilirubin,Urine Negative Normal Negative [facility] Comment on above: Order Comment: Name Collection Type:: Claire Catheter Performed By: #### C BC, PT, PTT, CMP #### [facility] [address] [place] [address] [place] Color (U) Yellow Normal Yellow [facility] Comment on above: Order Comment: Name Collection Type:: Claire Catheter Performed By: #### C BC, PT, PTT, CMP #### [facility] [address] [place] [address] [place] Glucose Ql (U) Normal Normal Normal [facility] Comment on above: Order Comment: Name Collection Type:: Claire Catheter Performed By: #### C BC, PT, PTT, CMP #### [facility] [address] [place] [address] [place] Hyaline Casts,Urine 0-8 Normal 0-8 [facility] Comment on above: Order Comment: Name Collection Type:: Claire Catheter Result Comment: PERF ORMED BY: [place] [address] PATHOLOGIST RIB BENDER GUIDO ELIZALDE M.D. Performed By: #### C BC, PT, PTT, CMP #### [facility] [address] [place] [address] [place] Ketones Ql (U) Negative Normal Negative [facility] Comment on above: Order Comment: Name Collection Type:: Claire Catheter Performed By: #### C BC, PT, PTT, CMP #### [facility] [place] [address] Leukocyte esterase Test strip Ql (U) 3+ High Negative [facility] Comment on above: Order Comment: Name Collection Type:: Claire Catheter Performed By: #### C BC, PT, PTT, CMP #### [facility] [place] [address] Nitrite,Urine Negative Normal Negative [facility] Comment on above: Order Comment: Name Collection Type:: Claire Catheter Performed By: #### C BC, PT, PTT, CMP #### [address] Occult Blood,Urine 3+ High Negative [facility] Comment on above: Order Comment: Name Collection Type:: Claire Catheter Result Comment: PERF ORMED BY: [place] [address] PATHOLOGIST RIB BENDER GUIDO ELIZALDE M.D. Performed By: #### C BC, PT, PTT, CMP #### [address] pH (U) 6.0 [pH] Normal 5.0-9.0 [facility] Comment on above: Order Comment: Name Collection Type:: Claire Catheter Performed By: #### C BC, PT, PTT, CMP #### [facility] [address] [place] [address] [place] Protein (U) [Mass/Vol] 30 mg/dL High Negative [facility] Comment on above: Order Comment: Name Collection Type:: Claire Catheter Performed By: #### C BC, PT, PTT, CMP #### [place] [address] [place] RBC,Urine Innumerable High 0-4 [facility] Comment on above: Order Comment: Name Collection Type:: Claire Catheter Performed By: #### C BC, PT, PTT, CMP #### [facility] [address] [place] [address] Specificy [place],Urine 1.024 Normal 1.001-1.030 [facility] Comment on above: Order Comment: Name Collection Type:: Claire Catheter Performed By: #### C BC, PT, PTT, CMP #### [address] Squamous Epithelial Cell,Urine 0-1 Normal 0-2 [facility] Comment on above: Order Comment: Name Collection Type:: Claire Catheter Performed By: #### C BC, PT, PTT, CMP #### [address] Urobilinogen,Urine Normal Normal Normal [facility] Comment on above: Order Comment: Name Collection Type:: Claire Catheter Performed By: #### C BC, PT, PTT, CMP #### [address] WBC,Urine 20-49 High 0-4 [facility] Comment on above: Order Comment: Name Collection Type:: Claire Catheter Performed By: #### C BC, PT, PTT, CMP #### [address] Glucose Poct Glucometerson 0 03-25-2022 Glucose [Mass/Vol] 267 mg/dL Normal [facility] Comment on above: Result Comment: [facility] Glucose Reference Range is dependent on time and content of last meal. Glucose of more than 200 mg/dL in a nonstressed, ambulatory subject supports the diagnosis of Diabetes Mellitus. PERFORMED BY: [place] [address] PATHOLOGIST RIB BENDER GUIDO ELIZALDE M.D. Performed By: #### C BC, PT, PTT, CMP #### [facility] [address] [place] [address] Commemt1 Glu2: Cleaned Meter Normal [facility] Comment on above: Result Comment: PERF ORMED BY: [place] [address] PATHOLOGIST RIB BENDER GUIDO ELIZALDE M.D. Performed By: #### C BC, PT, PTT, CMP #### [place] [address] [place] Glucose [Mass/Vol] 190 mg/dL Normal [facility] Comment on above: Result Comment: [place] Glucose Reference Range is dependent on time and content of last meal. Glucose of more than 200 mg/dL in a nonstressed, ambulatory subject supports the diagnosis of Diabetes Mellitus. Performed By: #### C BC, PT, PTT, CMP #### [address] Commemt1 Glu2: Cleaned Meter [facility] Comment on above: Result Comment: PERF ORMED BY: [place] [address] PATHOLOGIST RIB BENDER GUIDO ELIZALDE M.D. Performed By: #### C BC, PT, PTT, CMP #### [place] [address] [place] Glucose [Mass/Vol] 192 mg/dL Normal [facility] Comment on above: Result Comment: [place] Glucose Reference Range is dependent on time and content of last meal. Glucose of more than 200 mg/dL in a nonstressed, ambulatory subject supports the diagnosis of Diabetes Mellitus. Performed By: #### C BC, PT, PTT, CMP #### [address] Commemt1 Glu2: Cleaned Meter [facility] Comment on above: Result Comment: PERF ORMED BY: [place] [address] PATHOLOGIST RIB BENDER GUIDO ELIZALDE M.D. Performed By: #### C BC, PT, PTT, CMP #### [place] [address] [place] Glucose [Mass/Vol] 146 mg/dL Normal [facility] Comment on above: Result Comment: [facility] Glucose Reference Range is dependent on time and content of last meal. Glucose of more than 200 mg/dL in a nonstressed, ambulatory subject supports the diagnosis of Diabetes Mellitus. Performed By: #### C BC, PT, PTT, CMP #### [facility] [address] Urine Cultureon 03-25-2022 Bacteria identified Cx Nom (U) Urine Culture Results 75,000 colonies/ml Mixed Bacterial Skin Contaminants 2 Days PERFORMED BY: [facility] [address] [place] [address] PATHOLOGIST RIB BENDER GUIDO ELIZALDE M.D. [facility] Comment on above: Performed By: #### C BC, PT, PTT, CMP #### [address] Basic Metabolic Panelon 03-09 Calcium [Mass/Vol] 9.0 mg/dL Normal 8.2-10.2 [facility] Comment on above: Performed By: #### C BC, PT, PTT, CMP #### [facility] [place] [address] Chloride [Moles/Vol] 102 mmol/L Normal 95-114 [facility] Comment on above: Performed By: #### C BC, PT, PTT, CMP #### [address] CO2 [Moles/Vol] 24.3 mmol/L Normal 22.0-30.0 [facility] Comment on above: Performed By: #### C BC, PT, PTT, CMP #### [facility] [address] Creatinine [Mass/Vol] 1.00 mg/dL Normal 0.44-1.03 [facility] Comment on above: Performed By: #### C BC, PT, PTT, CMP #### [facility] [place] [address] [place] [address] [place] Creatinine Clr Calc Pharmacy 42.78 [facility] Comment on above: Result Comment: PERF ORMED BY: [place] [address] PATHOLOGIST RIB BENDER GUIDO ELIZALDE M.D. Performed By: #### C BC, PT, PTT, CMP #### [address] Estimated GFR ( Froylan > 60 [facility] Comment on above: Result Comment: GFR estimated reference range: According to KDOQI guidelines, <60 ml/min/1.73m2 is sufficient to diagnose a patient with chronic kidney disease. Performed By: #### C BC, PT, PTT, CMP #### [address] Estimated GFR (Non- Am 53 [facility] Comment on above: Performed By: #### C BC, PT, PTT, CMP #### [address] Glucose [Mass/Vol] 351 mg/dL High 70-100 [facility] Comment on above: Result Comment: [place] Glucose Reference Range is dependent on time and content of last meal. Glucose of more than 200 mg/dL in a nonstressed, ambulatory subject supports the diagnosis of Diabetes Mellitus. ADA recommended reference range Performed By: #### C BC, PT, PTT, CMP #### [address] Potassium [Moles/Vol] 4.6 mmol/L Normal 3.5-5.1 [facility] Comment on above: Performed By: #### C BC, PT, PTT, CMP #### [address] Sodium [Moles/Vol] 137 mmol/L Normal 136-146 [facility] Comment on above: Performed By: #### C BC, PT, PTT, CMP #### [address] Urea nitrogen [Mass/Vol] 30 mg/dL High 9-23 [facility] Comment on above: Performed By: #### C BC, PT, PTT, CMP #### [place] [address] [place] COVID-19 [facility] SARS-CoV-2 (COVID-19) RNA HARMONY+probe Ql (Unsp spec) Negative Normal Negative [facility] Comment on above: Order Comment: Healt hcare Worker?: N Result Comment: Testing for SARS-CoV-2 by RT-PCR This test was developed and its performance characteristics determined by [employer] and validated at the [facility]. This test has not been FDA [...] sooner. PERFORMED BY: [facility] [address] [place] [address] PATHOLOGIST RIB BENDER GUIDO ELIZALDE M.D. Performed By: #### G INOCENTE #### Point of Care testing , COVID-19 Positive/NegativeOr dered By: Howard Stauffer on 03-24-2022 SARS-CoV-2 (COVID-19) N gene HARMONY+probe Ql (Resp) Negative Negative [facility] Comment on above: Testing for SARS-CoV -2 by RT-PCR This test was developed and its performance characteristics determined by [employer] and validated at the [facility]. This test has not been FDA [...] [#/Vol] 0.0 10*3/uL Normal 0.0-0.2 [facility] Comment on above: Result Comment: PERF ORMED BY: [place] [address] PATHOLOGIST RIB BENDER GUIDO ELIZALDE M.D. Performed By: #### C BC, PT, PTT, CMP #### [address] Basophils/100 WBC (Bld) 0.1 % Normal . [facility] Comment on above: Performed By: #### C BC, PT, PTT, CMP #### [facility] [address] [place] [address] Eosinophils (Bld) [#/Vol] 0.0 10*3/uL Normal 0.0-0.45 [facility] Comment on above: Performed By: #### C BC, PT, PTT, CMP #### [address] Eosinophils/100 WBC (Bld) 0.0 % Normal . [facility] Comment on above: Performed By: #### C BC, PT, PTT, CMP #### [address] Erythrocyte distribution width (RBC) [Ratio] 13.5 % Normal 11.9-15.3 [facility] Comment on above: Performed By: #### C BC, PT, PTT, CMP #### [address] Hematocrit (Bld) [Volume fraction] 41.1 % Normal 34.0-46.4 [facility] Comment on above: Performed By: #### C BC, PT, PTT, CMP #### [address] Hemoglobin (Bld) [Mass/Vol] 13.5 g/dL Normal 11.8-15.4 [facility] Comment on above: Performed By: #### C BC, PT, PTT, CMP #### [address] Lymphocytes (Bld) [#/Vol] 0.8 10*3/uL Low 1.00-4.8 [facility] Comment on above: Performed By: #### C BC, PT, PTT, CMP #### [address] Lymphocytes/100 WBC (Bld) 11.1 % Normal . [facility] Comment on above: Performed By: #### C BC, PT, PTT, CMP #### [address] MCH (RBC) [Entitic mass] 30.0 pg Normal 24.7-34.3 [facility] Comment on above: Performed By: #### C BC, PT, PTT, CMP #### [address] MCV (RBC) [Entitic vol] 91.0 fL Normal 80-100 [facility] Comment on above: Performed By: #### C BC, PT, PTT, CMP #### [address] Mean Corpuscular HGB Conc 33.0 g/dL Normal 32.0-35.0 [facility] Comment on above: Performed By: #### C BC, PT, PTT, CMP #### [address] Monocytes (Bld) [#/Vol] 0.1 10*3/uL Normal 0.0-0.8 [facility] Comment on above: Performed By: #### C BC, PT, PTT, CMP #### [facility] [address] [place] [address] [place] Monocytes/100 WBC (Bld) 0.8 % Normal . [facility] Comment on above: Performed By: #### C BC, PT, PTT, CMP #### [facility] [address] [place] [address] [place] Neutrophils (Bld) [#/Vol] 6.6 10*3/uL Normal 1.8-7.7 [facility] Comment on above: Performed By: #### C BC, PT, PTT, CMP #### [facility] [place] [address] Neutrophils/100 WBC (Bld) 88.0 % Normal . [facility] Comment on above: Performed By: #### C BC, PT, PTT, CMP #### [facility] [place] [address] [place] [address] [place] Nucleated RBC/100 WBC (Bld) [Ratio] 0.0 % Normal 0-0.5 [facility] Comment on above: Performed By: #### C BC, PT, PTT, CMP #### [facility] [place] [address] [place] [address] [place] Platelet mean volume (Bld) [Entitic vol] 8.1 fL Normal 6.3-10.7 [facility] Comment on above: Performed By: #### C BC, PT, PTT, CMP #### [facility] [place] [address] [place] [address] [place] Platelets (Bld) [#/Vol] 252 10*3/uL Normal 150-450 [facility] Comment on above: Performed By: #### C BC, PT, PTT, CMP #### [facility] [address] [place] [address] [place] RBC (Bld) [#/Vol] 4.52 10*6/uL Normal 3.60-5.00 [facility] Comment on above: Performed By: #### C BC, PT, PTT, CMP #### [facility] [place] [address] [place] [address] [place] WBC (Bld) [#/Vol] 7.5 10*3/uL Normal 4.5-11.0 [facility] Comment on above: Performed By: #### C BC, PT, PTT, CMP #### [place] [address] [place] Glucose Glucometer (BldC) [M ass/Vol]Ordered By: Perlita Gautam on 03-24-2022 Glucose [Mass/Vol] 218 mg/dL [facility] Comment on above: Random Glucose Refer ence Range is dependent on time and content of last meal. Glucose of more than 200 mg/dL in a nonstressed, ambulatory subject supports the diagnosis of Diabetes Mellitus. Glucose Poct Glucometerson 0 03-24-2022 Glucose [Mass/Vol] 224 mg/dL Normal [facility] Comment on above: Result Comment: [place] Glucose Reference Range is dependent on time and content of last meal. Glucose of more than 200 mg/dL in a nonstressed, ambulatory subject supports the diagnosis of Diabetes Mellitus. PERFORMED BY: [place] [address] PATHOLOGIST RIB BENDER GUIDO ELIZALDE M.D. Performed By: #### C BC, PT, PTT, CMP #### [address] Commemt1 Glu2: Cleaned Meter Normal [facility] Comment on above: Result Comment: PERF ORMED BY: [place] [address] PATHOLOGIST RIB BENDER GUIDO ELIZALDE M.D. Performed By: #### C BC, PT, PTT, CMP #### [address] Glucose [Mass/Vol] 306 mg/dL Normal [facility] Comment on above: Result Comment: [place] om Glucose Reference Range is dependent on time and content of last meal. Glucose of more than 200 mg/dL in a nonstressed, ambulatory subject supports the diagnosis of Diabetes Mellitus. Performed By: #### C BC, PT, PTT, CMP #### [address] Commemt1 Glu2: Cleaned Meter Normal [facility] Comment on above: Result Comment: PERF ORMED BY: [place] [address] PATHOLOGIST RIB BENDER GUIDO ELIZALDE M.D. Performed By: #### C BC, PT, PTT, CMP #### [address] Glucose [Mass/Vol] 392 mg/dL Normal [facility] Comment on above: Result Comment: [place] Glucose Reference Range is dependent on time and content of last meal. Glucose of more than 200 mg/dL in a nonstressed, ambulatory subject supports the diagnosis of Diabetes Mellitus. Performed By: #### C BC, PT, PTT, CMP #### [address] Glucose [Mass/Vol] 277 mg/dL Normal [facility] Comment on above: Result Comment: [place] Glucose Reference Range is dependent on time and content of last meal. Glucose of more than 200 mg/dL in a nonstressed, ambulatory subject supports the diagnosis of Diabetes Mellitus. PERFORMED BY: [place] [address] PATHOLOGIST RIB BENDER GUIDO ELIZALDE M.D. Performed By: #### C BC, PT, PTT, CMP #### [address] [address] [facility] Glucose [Mass/Vol] 218 mg/dL Normal [facility] Comment on above: Result Comment: [place] Glucose Reference Range is dependent on time and content of last meal. Glucose of more than 200 mg/dL in a nonstressed, ambulatory subject supports the diagnosis of Diabetes Mellitus. PERFORMED BY: [place] [address] PATHOLOGIST RIB BENDER GUIDO ELIZALDE M.D. Performed By: #### C BC, PT, PTT, CMP #### [address] [address] [facility] Laboratory - Microbiology an d Antimicrobial susceptibilityOrdered By: Howard Stauffer on 03-24-2022 SARS-CoV-2 (COVID-19) RNA HARMONY+probe Ql (Unsp spec) N/A [facility] Activated partial thrombopla stin time (aPTT) in platelet poor plasma by coagulation aOrdered By: Howard Stauffer on 03-23-2022 aPTT Coag (PPP) [Time] 32.2 s 25.1-36.5 [facility] Albumin [Mass/volume] in Ser um or PlasmaOrdered By: Howard Stauffer on 03-23-2022 Albumin [Mass/Vol] 3.6 g/dL 3.2-5.5 [facility] Basophils Auto (Bld) [#/Vol] Ordered By: Howard Stauffer on 03-23-2022 Basophils (Bld) [#/Vol] 0.1 10*3/uL 0.0-0.2 [facility] Basophils/100 WBC Auto (Bld) Ordered By: Howard Stauffer on 03-23-2022 Basophils/100 WBC (Bld) 0.6 % F [facility] Bilirubin Test strip Ql (U)O rdered By: Howard Stauffer on 03-23-2022 Bilirubin Ql (U) Negative Negative [facility] Blood hemoglobin measurement (mass/volume)Ordered By: Howard Stauffer on 03-23-2022 Hemoglobin (Bld) [Mass/Vol] 14.3 g/dL 11.8-15.4 [facility] Blood leukocytes automated c ount (number/volume)Ordered By: Howard Stauffer on 03-23-2022 WBC (Bld) [#/Vol] 8.6 10*3/uL 4.5-11.0 [facility] COVID-19 Antigenon 2 COVID-19 Antigen Healthcare [...] developed and its performance characteristic determined by [employer] and validated at [facility]. This test has not been FDA [...] for SARS Antigen by [employer] PERFORMED BY: [place] [address] PATHOLOGIST RIB BENDER GUIDO ELIZALDE M.D. Normal [facility] Comment on above: Performed By: #### C BC, PT, PTT, CMP #### [address] COVID-19 SOFIAOrdered By: Jed Stauffer on 03-23-2022 SARS-CoV+SARS-CoV-2 (COVID-19) Ag IA.rapid Ql (Resp) Negative Negative [facility] Comment on above: This is a duplicate Cecily SARS Antigen (DRAKE) result to be used for statistical tracking purpose only. Color Auto (U)Ordered By: Jed Stauffer on 03-23-2022 Color (U) Yellow Yellow [facility] Complete Blood Count Auto Di ffon 03-23-2022 Basophils (Bld) [#/Vol] 0.1 10*3/uL Normal 0.0-0.2 [facility] Comment on above: Result Comment: PERF ORMED BY: [place] [address] PATHOLOGIST RIB BENDER GUIDO ELIZALDE M.D. Performed By: #### C BC, PT, PTT, CMP #### [address] Basophils/100 WBC (Bld) 0.6 % Normal . F [facility] Comment on above: Performed By: #### C BC, PT, PTT, CMP #### [address] Eosinophils (Bld) [#/Vol] 0.2 10*3/uL Normal 0.0-0.45 [facility] Comment on above: Performed By: #### C BC, PT, PTT, CMP #### [address] Eosinophils/100 WBC (Bld) 2.3 % Normal . [facility] Comment on above: Performed By: #### C BC, PT, PTT, CMP #### [address] Erythrocyte distribution width (RBC) [Ratio] 13.8 % Normal 11.9-15.3 [facility] Comment on above: Performed By: #### C BC, PT, PTT, CMP #### [address] Hematocrit (Bld) [Volume fraction] 43.4 % Normal 34.0-46.4 [facility] Comment on above: Performed By: #### C BC, PT, PTT, CMP #### [address] Hemoglobin (Bld) [Mass/Vol] 14.3 g/dL Normal 11.8-15.4 [facility] Comment on above: Performed By: #### C BC, PT, PTT, CMP #### [address] Lymphocytes (Bld) [#/Vol] 3.3 10*3/uL Normal 1.00-4.8 [facility] Comment on above: Performed By: #### C BC, PT, PTT, CMP #### [place] [address] [place] Lymphocytes/100 WBC (Bld) 38.7 % Normal . [facility] Comment on above: Performed By: #### C BC, PT, PTT, CMP #### [address] MCH (RBC) [Entitic mass] 29.9 pg Normal 24.7-34.3 [facility] Comment on above: Performed By: #### C BC, PT, PTT, CMP #### [address] MCV (RBC) [Entitic vol] 91.0 fL Normal 80-100 [facility] Comment on above: Performed By: #### C BC, PT, PTT, CMP #### [address] Mean Corpuscular HGB Conc 32.9 g/dL Normal 32.0-35.0 [facility] Comment on above: Performed By: #### C BC, PT, PTT, CMP #### [place] [address] [place] Monocytes (Bld) [#/Vol] 0.8 10*3/uL Normal 0.0-0.8 [facility] Comment on above: Performed By: #### C BC, PT, PTT, CMP #### [place] [address] [place] Monocytes/100 WBC (Bld) 9.2 % Normal . [facility] Comment on above: Performed By: #### C BC, PT, PTT, CMP #### [place] [address] [place] Neutrophils (Bld) [#/Vol] 4.2 10*3/uL Normal 1.8-7.7 [facility] Comment on above: Performed By: #### C BC, PT, PTT, CMP #### [place] [address] [place] Neutrophils/100 WBC (Bld) 49.2 % Normal . [facility] Comment on above: Performed By: #### C BC, PT, PTT, CMP #### [facility] [place] [address] [place] [address] [place] Nucleated RBC/100 WBC (Bld) [Ratio] 0.0 % Normal 0-0.5 [facility] Comment on above: Performed By: #### C BC, PT, PTT, CMP #### [address] Platelet mean volume (Bld) [Entitic vol] 7.8 fL Normal 6.3-10.7 [facility] Comment on above: Performed By: #### C BC, PT, PTT, CMP #### [address] Platelets (Bld) [#/Vol] 295 10*3/uL Normal 150-450 [facility] Comment on above: Performed By: #### C BC, PT, PTT, CMP #### [address] RBC (Bld) [#/Vol] 4.77 10*6/uL Normal 3.60-5.00 [facility] Comment on above: Performed By: #### C BC, PT, PTT, CMP #### [address] WBC (Bld) [#/Vol] 8.6 10*3/uL Normal 4.5-11.0 [facility] Comment on above: Performed By: #### C BC, PT, PTT, CMP #### [address] Comprehensive Metabolic Pane sadiq 03-23-2022 Albumin [Mass/Vol] 3.6 g/dL Normal 3.2-5.5 [facility] Comment on above: Performed By: #### C BC, PT, PTT, CMP #### [address] Albumin/Globulin [Mass ratio] 1.1 {ratio} Normal [facility] Comment on above: Performed By: #### C BC, PT, PTT, CMP #### [facility] [address] [place] [address] [place] ALP [Catalytic activity/Vol] 48 U/L Normal 32-92 [facility] [facility] Comment on above: Performed By: #### C BC, PT, PTT, CMP #### [facility] [address] [place] [address] [place] ALT [Catalytic activity/Vol] 18 U/L Normal 10-60 [facility] Comment on above: Performed By: #### C BC, PT, PTT, CMP #### [facility] [address] [place] [address] [place] AST [Catalytic activity/Vol] 22 U/L Normal 10-42 [facility] Comment on above: Performed By: #### C BC, PT, PTT, CMP #### [facility] [address] [place] [address] [place] Bilirubin [Mass/Vol] 0.6 mg/dL Normal 0.3-1.2 [facility] Comment on above: Performed By: #### C BC, PT, PTT, CMP #### [facility] [address] [place] [address] [place] Calcium [Mass/Vol] 9.6 mg/dL Normal 8.2-10.2 [facility] Comment on above: Performed By: #### C BC, PT, PTT, CMP #### [facility] [address] [place] [address] [place] Chloride [Moles/Vol] 103 mmol/L Normal 95-114 [facility] Comment on above: Performed By: #### C BC, PT, PTT, CMP #### [facility] [address] [place] [address] [place] CO2 [Moles/Vol] 27.4 mmol/L Normal 22.0-30.0 [facility] Comment on above: Performed By: #### C BC, PT, PTT, CMP #### [facility] [address] [place] [address] [place] Creatinine [Mass/Vol] 0.92 mg/dL Normal 0.44-1.03 [facility] Comment on above: Performed By: #### C BC, PT, PTT, CMP #### [facility] [place] [address] Creatinine Clr Calc Pharmacy 46.80 [facility] Comment on above: Result Comment: PERF ORMED BY: [place] [address] PATHOLOGIST RIB BENDER GUIDO ELIZALDE M.D. Performed By: #### C BC, PT, PTT, CMP #### [facility] [place] [address] Estimated GFR ( Froylan > 60 [facility] Comment on above: Result Comment: GFR estimated reference range: According to KDOQI guidelines, <60 ml/min/1.73m2 is sufficient to diagnose a patient with chronic kidney disease. Performed By: #### C BC, PT, PTT, CMP #### [facility] [place] [address] Estimated GFR (Non- Am 59 [facility] Comment on above: Performed By: #### C BC, PT, PTT, CMP #### [facility] [place] [address] Globulin (S) [Mass/Vol] 3.2 g/dL Normal [facility] Comment on above: Performed By: #### C BC, PT, PTT, CMP #### [facility] [place] [address] Glucose [Mass/Vol] 114 mg/dL High 70-100 [facility] Comment on above: Result Comment: [place] Glucose Reference Range is dependent on time and content of last meal. Glucose of more than 200 mg/dL in a nonstressed, ambulatory subject supports the diagnosis of Diabetes Mellitus. ADA recommended reference range Performed By: #### C BC, PT, PTT, CMP #### [facility] [place] [address] Potassium [Moles/Vol] 4.4 mmol/L Normal 3.5-5.1 [facility] Comment on above: Performed By: #### C BC, PT, PTT, CMP #### [facility] [address] [place] [id number] [place] Protein [Mass/Vol] 6.8 g/dL Normal 6.1-7.9 [facility] Comment on above: Performed By: #### C BC, PT, PTT, CMP #### [facility] [address] Sodium [Moles/Vol] 141 mmol/L Normal 136-146 [facility] Comment on above: Performed By: #### C BC, PT, PTT, CMP #### [facility] [address] [place] [address] [place] Urea nitrogen [Mass/Vol] 24 mg/dL High - [facility] Comment on above: Performed By: #### C BC, PT, PTT, CMP #### [facility] [address] [place] [address] [place] Creatinine and Glomerular fi ltration rate.predicted panel (S/P/Bld)Ordered By: Howard Stauffer on 03-23-2022 Creatinine [Mass/Vol] 0.92 mg/dL 0.44-1.03 [facility] ECG 12 lead ECGon 03-23-2022 ECG 12 lead ECG [facility] [place] [address] [place] [address] Electrocardiograph Report Signed Patient: Saeed Sarabia MR#: [id number] : 1940 Acct:[id number] Age/Sex: 81 / F ADM Date: 03/24/22 Loc: Room: [address] [place] [address] Type: DIS INOo Attending Dr: Rupert Anthony [...] longer present Confirmed by Howard Stauffer DO ([id number]) on 03/24/2022 2:06:42 AM Referred By: Electronically Signed By:Howard Stauffer DO Transcribed By: MUS Signed By Howard Stauffer DO 03/24 0206 Normal [facility] Eosinophils Auto (Bld) [#/Vo l]Ordered By: Howard Stauffer on 03-23-2022 Eosinophils (Bld) [#/Vol] 0.2 10*3/uL 0.0-0.45 [facility] Eosinophils/100 WBC Auto (Bl d)Ordered By: Howard Stauffer on 03-23-2022 Eosinophils/100 WBC (Bld) 2.3 % [facility] Erythrocyte distribution wid th Auto (RBC) [Ratio]Ordered By: Howard Stauffer on 03-23-2022 Erythrocyte distribution width (RBC) [Ratio] 13.8 % 11.9-15.3 [facility] Estimated glomerular filtrat ion rate (GFR) non- AmericanOrdered By: Howard Stauffer on 03-23-2022 GFR/1.73 sq M.predicted among non-blacks MDRD (S/P/Bld) [Vol rate/Area] 59 mL/Min [facility] Globulin Calc (S) [Mass/Vol] Ordered By: Howard Stauffer on 03-23-2022 Globulin (S) [Mass/Vol] 3.2 g/dL F [facility] Hematocrit Auto (Bld) [Volum e fraction]Ordered By: Howard Stauffer on 03-23-2022 Hematocrit (Bld) [Volume fraction] 43.4 % 34.0-46.4 [facility] Ketones Auto test strip (U) [Mass/Vol]Ordered By: Howard Stauffer on 03-23-2022 Ketones (U) [Mass/Vol] Trace Negative [facility] - CoagulationOrde red By: Howard Stauffer on 03-23-2022 PT Coag (PPP) [Time] 15.7 s 9.0-12.9 [facility] - Hematology and Cell countsOrdered By: Howard Stauffer on 03-23-2022 Nucleated RBC/100 WBC (Bld) [Ratio] 0.0 % 0-0.5 [facility] Lymphocytes Auto (Bld) [#/Vo l]Ordered By: Howard Stauffer on 03-23-2022 Lymphocytes (Bld) [#/Vol] 3.3 10*3/uL 1.00-4.8 [facility] Lymphocytes/100 WBC Auto (Bl d)Ordered By: Howard Stauffer on 03-23-2022 Lymphocytes/100 WBC (Bld) 38.7 % [facility] MCH Auto (RBC) [Entitic mass ]Ordered By: Howard Stauffer on 03-23-2022 MCH (RBC) [Entitic mass] 29.9 pg 24.7-34.3 [facility] MCHC Auto (RBC) [Mass/Vol]Or dered By: Howard Stauffer on 03-23-2022 MCHC (RBC) [Mass/Vol] 32.9 g/dL 32.0-35.0 [facility] MCV Auto (RBC) [Entitic vol] Ordered By: Howard Stauffer on 03-23-2022 MCV (RBC) [Entitic vol] 91.0 fL 80-100 F [facility] Monocytes Auto (Bld) [#/Vol] Ordered By: Howard Stauffer on 03-23-2022 Monocytes (Bld) [#/Vol] 0.8 10*3/uL 0.0-0.8 [facility] Monocytes/100 WBC Auto (Bld) Ordered By: Howard Stauffer on 03-23-2022 Monocytes/100 WBC (Bld) 9.2 % [facility] Neutrophils Auto (Bld) [#/Vo l]Ordered By: Howard Stauffer on 03-23-2022 Neutrophils (Bld) [#/Vol] 4.2 10*3/uL 1.8-7.7 [facility] Neutrophils/100 WBC Auto (Bl d)Ordered By: Howard Stauffer on 03-23-2022 Neutrophils/100 WBC (Bld) 49.2 % [facility] Nitrite Test strip Ql (U)Ord ered By: Howard Stauffer on 03-23-2022 Nitrite Ql (U) Negative Negative [facility] No Panel InformationOrdered By: Howard Stauffer on 03-23-2022 Estimated GFR () > 60 mL/Min [facility] Comment on above: GFR estimated refere nce range: According to KDOQI guidelines, <60 ml/min/1.73m2 is sufficient to diagnose a patient with chronic kidney disease. Pharmacy Creatinine Clearance (Chem 46.80 [facility] SARS Antigen (LFIA) [facility] SARS Antigen (LFIA) [facility] Partial Thromboplastin Timeo n 03-23-2022 aPTT Coag (Bld) [Time] 32.2 s Normal 25.1-36.5 [facility] Comment on above: Result Comment: PERF ORMED BY: [place] [address] PATHOLOGIST RIB BENDER GUIDO ELIZALDE M.D. Performed By: #### C BC, PT, PTT, CMP #### [address] Platelet mean volume Auto (B ld) [Entitic vol]Ordered By: Howard Stauffer on 03-23-2022 Platelet mean volume (Bld) [Entitic vol] 7.8 fL 6.3-10.7 [facility] Platelet poor plasma interna tional normalized ratio (INR) by coagulation assay (relatOrdered By: Howard Stauffer on 03-23-2022 INR Coag (PPP) [Relative time] 1.4 {INR} [facility] Comment on above: INR Therapeutic Rang [...] (Bld) [#/Vol] 295 10*3/uL 150-450 [facility] Protein Auto test strip (U) [Mass/Vol]Ordered By: Howard Stauffer on 03-23-2022 Protein (U) [Mass/Vol] Negative Negative [facility] Protein [Mass/volume] in Ser um or PlasmaOrdered By: Howard Stauffer on 03-23-2022 Protein [Mass/Vol] 6.8 g/dL 6.1-7.9 [facility] Prothrombin Time INRon 03-23 INR Coag (PPP) [Relative time] 1.4 {INR} Normal [facility] Comment on above: Result Comment: INR [...] #### C BC, PT, PTT, CMP #### [facility] [address] PT Coag (PPP) [Time] 15.7 s High 9.0-12.9 [facility] Comment on above: Performed By: #### C BC, PT, PTT, CMP #### [facility] [address] RBC Auto (Bld) [#/Vol]Ordere d By: Howard Stauffer on 03-23-2022 RBC (Bld) [#/Vol] 4.77 10*6/uL 3.60-5.00 [facility] Serum or plasma alanine [place] otransferase measurement without P-5'-P (enzymatic activiOrdered By: Howard Stauffer on 03-23-2022 ALT No additional P-5'-P [Catalytic activity/Vol] 18 U/L 10-60 [facility] Serum or plasma albumin/glob ulin mass ratioOrdered By: Howard Stauffer on 03-23-2022 Albumin/Globulin [Mass ratio] 1.1 {ratio} [facility] Serum or plasma alkaline dolly sphatase measurement (enzymatic activity/volume)Ordered By: Howard Stauffer on 03-23-2022 ALP [Catalytic activity/Vol] 48 U/L 32-92 [facility] Serum or plasma aspartate am inotransferase measurement (enzymatic activity/volume)Ordered By: Howard Stauffer on 03-23-2022 AST [Catalytic activity/Vol] 22 U/L 10-42 [facility] Serum or plasma calcium nakul urement (mass/volume)Ordered By: Howard Stauffer on 03-23-2022 Calcium [Mass/Vol] 9.6 mg/dL 8.2-10.2 [facility] Serum or plasma chloride juliana surement (moles/volume)Ordered By: Howard Stauffer on 03-23-2022 Chloride [Moles/Vol] 103 mmol/L 95-114 [facility] Serum or plasma glucose nakul urement (mass/volume)Ordered By: Howard Stauffer on 03-23-2022 Glucose [Mass/Vol] 114 mg/dL 70-100 [facility] Comment on above: ADA recommended refe rence range [place] Glucose Reference Range is dependent on time and content of last meal. Glucose of more than 200 mg/dL in a nonstressed, ambulatory subject supports the diagnosis of Diabetes Mellitus. Serum or plasma potassium me asurement (moles/volume)Ordered By: Howard Stauffer on 03-23-2022 Potassium [Moles/Vol] 4.4 mmol/L 3.5-5.1 [facility] Serum or plasma sodium measu rement (moles/volume)Ordered By: Howard Stauffer on 03-23-2022 Sodium [Moles/Vol] 141 mmol/L 136-146 [facility] Serum or plasma total biliru bin measurement (mass/volume)Ordered By: Howard Stauffer on 03-23-2022 Bilirubin [Mass/Vol] 0.6 mg/dL 0.3-1.2 [facility] Serum or plasma total carbon dioxide measurement (moles/volume)Ordered By: Howard Stauffer on 03-23-2022 CO2 [Moles/Vol] 27.4 mmol/L 22.0-30.0 [facility] Serum or plasma urea nitroge n measurement (mass/volume)Ordered By: Howard Stauffer on 03-23-2022 Urea nitrogen [Mass/Vol] 24 mg/dL 07-01 [facility] Cecily Ag Negativeon 03-23-20 22 Cecily Ag Negative Negative Normal Negative [facility] Comment on above: Result Comment: This is a duplicate Cecily SARS Antigen (DRAKE) result to be used for statistical tracking purpose only. PERFORMED BY: [place] [address] PATHOLOGIST RIB BENDER GUIDO ELIZALDE M.D. Performed By: #### G INOCENTE #### Point of Care testing , Specific gravity Auto test s trip (U) [Rel density]Ordered By: Howard Stauffer on 03-23-2022 Specific gravity (U) [Rel density] 1.017 1.001-1.030 [facility] Troponin I High Sensitivityo n 03-23-2022 Troponin I High Sensitivity 6 pg/mL Normal [facility] Comment on above: Result Comment: PERF ORMED BY: [place] [address] PATHOLOGIST RIB BENDER GUIDO ELIZALDE M.D. Performed By: #### C BC, PT, PTT, CMP #### [facility] [address] [place] [address] Troponin I.cardiac [Mass/vol ume] in Serum or Plasma by High sensitivity methodOrdered By: Howard Stauffer on 03-23-2022 Troponin I.cardiac High sensitivity method [Mass/Vol] 6 pg/mL [facility] Urinalysison 03-23-2022 Appearance (U) Clear Normal Clear [facility] Comment on above: Order Comment: Name Collection Type:: Straight Catheter Performed By: #### U A #### [facility] [address] [place] [address] [place] Bilirubin,Urine Negative Normal Negative [facility] Comment on above: Order Comment: Name Collection Type:: Straight Catheter Performed By: #### U A #### [facility] [address] [place] [address] [place] Color (U) Yellow Normal Yellow [facility] Comment on above: Order Comment: Name Collection Type:: Straight Catheter Performed By: #### U A #### [facility] [address] [place] [address] Glucose Ql (U) Normal Normal Normal [facility] Comment on above: Order Comment: Name Collection Type:: Straight Catheter Performed By: #### U A #### [facility] [address] [place] [address] Ketones Ql (U) Trace High Negative [facility] Comment on above: Order Comment: Name Collection Type:: Straight Catheter Performed By: #### U A #### [address] Leukocyte esterase Test strip Ql (U) Negative Normal Negative [facility] Comment on above: Order Comment: Name Collection Type:: Straight Catheter Performed By: #### U A #### [address] Nitrite,Urine Negative Normal Negative [facility] Comment on above: Order Comment: Name Collection Type:: Straight Catheter Performed By: #### U A #### [address] Occult Blood,Urine Negative Normal Negative [facility] Comment on above: Order Comment: Name Collection Type:: Straight Catheter Result Comment: PERF ORMED BY: [place] [address] PATHOLOGIST RIB BENDER GUIDO ELIZALDE M.D. Performed By: #### U A #### [place] [address] [place] pH (U) 7.5 [pH] Normal 5.0-9.0 [facility] Comment on above: Order Comment: Name Collection Type:: Straight Catheter Performed By: #### U A #### [place] [address] [place] Protein,Urine Negative Normal Negative [facility] Comment on above: Order Comment: Name Collection Type:: Straight Catheter Performed By: #### U A #### [address] Specificy [place],Urine 1.017 Normal 1.001-1.030 [facility] Comment on above: Order Comment: Name Collection Type:: Straight Catheter Performed By: #### U A #### [facility] [address] [place] [id number] [facility] Urobilinogen,Urine Normal Normal Normal [facility] Comment on above: Order Comment: Name Collection Type:: Straight Catheter Performed By: #### U A #### [facility] [address] [place] [id number] [place] Urine clarity by refractomet ry automatedOrdered By: Howard Stauffer on 03-23-2022 Clarity Refractometry automated (U) Clear Clear [facility] Urine glucose measurement by automated test strip (mass/volume)Ordered By: Howard Stauffer on 03-23-2022 Glucose Auto test strip (U) [Mass/Vol] Normal mg/dL Normal [facility] Urine hemoglobin detection b y automated test stripOrdered By: Howard Stauffer on 03-23-2022 Hemoglobin Auto test strip Ql (U) Negative Negative [facility] Urine leukocyte esterase det ection by automated test stripOrdered By: Howard Stauffer on 03-23-2022 Leukocyte esterase Auto test strip Ql (U) Negative Negative [facility] Urobilinogen Auto test strip (U) [Mass/Vol]Ordered By: Howard Stauffer on 03-23-2022 Urobilinogen (U) [Mass/Vol] Normal mg/dL Normal [facility] XR chest 1V portableon 03-23 XR chest 1V portable [facility] [place] [address] [place] [id number] XRay Report Signed Patient: Saeed Sarabia MR#: [id number] : 1940 Acct:[id number] Age/Sex: 81 / F ADM Date: 03/23/22 Loc: ER Room: Type: [facility] ER Attending Dr: Copies to: [...] Donny Wolf M.D.03/23/2022 8:03 PM Dictation Location: [place] [address] Transcribed By: [facility] 03/23/222002 Dictated By: Donny Wolf II, MD 03/23/222001 Signed By: 03/23/222002 Normal [facility] XR knee RT 4V*on 03-23-2022 XR knee RT 4V* [facility] [place] [address] [place] [address] XRay Report Signed Patient: Saeed Sarabia MR#: [id number] : 1940 Acct:[id number] Age/Sex: 81 / F ADM Date: 03/23/22 Loc: ER Room: Type: [facility] ER Attending Dr: Copies to: [...] Donny Wolf M.D.03/23/2022 8:02 PM Dictation Location: [place] [address] Transcribed By: [facility] 03/23/222001 Dictated By: Donny Wolf II, MD 03/23/222000 Signed By: 03/23/222001 Normal [facility] pH Auto test strip (U)Ordere d By: Howard Stauffer on 03-23-2022 pH (U) 7.5 [pH] 5.0-9.0 [facility] Basic Metabolic Panelon Calcium [Mass/Vol] 9.6 mg/dL Normal 8.2-10.2 [facility] Comment on above: Result Comment: PERF ORMED BY: [place] [address] PATHOLOGIST RIB BENDER GUIDO ELIZALDE M.D. Performed By: #### C BC, PT, PTT, CMP #### [facility] [place] [address] Chloride [Moles/Vol] 99 mmol/L Normal 95-114 [facility] Comment on above: Performed By: #### C BC, PT, PTT, CMP #### [facility] [place] [address] CO2 [Moles/Vol] 26.1 mmol/L Normal 22.0-30.0 [facility] Comment on above: Performed By: #### C BC, PT, PTT, CMP #### [facility] [address] [place] [address] [place] Creatinine [Mass/Vol] 1.04 mg/dL High 0.44-1.03 [facility] Comment on above: Performed By: #### C BC, PT, PTT, CMP #### [facility] [address] [place] [address] [place] Estimated GFR ( Froylan > 60 [facility] Comment on above: Result Comment: GFR estimated reference range: According to KDOQI guidelines, <60 ml/min/1.73m2 is sufficient to diagnose a patient with chronic kidney disease. Performed By: #### C BC, PT, PTT, CMP #### [facility] [place] [address] Estimated GFR (Non- Am 51 Normal [facility] Comment on above: Performed By: #### C BC, PT, PTT, CMP #### [facility] [place] [address] Glucose [Mass/Vol] 134 mg/dL High 70-100 [facility] Comment on above: Result Comment: [place] Glucose Reference Range is dependent on time and content of last meal. Glucose of more than 200 mg/dL in a nonstressed, ambulatory subject supports the diagnosis of Diabetes Mellitus. ADA recommended reference range Performed By: #### C BC, PT, PTT, CMP #### [address] Potassium [Moles/Vol] 4.8 mmol/L Normal 3.5-5.1 [facility] Comment on above: Performed By: #### C BC, PT, PTT, CMP #### [address] Sodium [Moles/Vol] 139 mmol/L Normal 136-146 [facility] Comment on above: Performed By: #### C BC, PT, PTT, CMP #### [address] Urea nitrogen [Mass/Vol] 21 mg/dL Normal 9-23 [facility] Comment on above: Performed By: #### C BC, PT, PTT, CMP #### [facility] [address] [place] [address] Basophils Auto (Bld) [#/Vol] Ordered By: Atul Vera on 03-09-2022 Basophils (Bld) [#/Vol] 0.1 10*3/uL 0.0-0.2 [facility] Basophils/100 WBC Auto (Bld) Ordered By: Atul Vera on 03-09-2022 Basophils/100 WBC (Bld) 0.8 % [facility] Blood hemoglobin measurement (mass/volume)Ordered By: Atul Vera on 03-09-2022 Hemoglobin (Bld) [Mass/Vol] 13.7 g/dL 11.8-15.4 [facility] Blood leukocytes automated c ount (number/volume)Ordered By: Atul Vera on 03-09-2022 WBC (Bld) [#/Vol] 6.4 10*3/uL 4.5-11.0 [facility] Complete Blood Count Auto Di ffon 03-09-2022 Basophils (Bld) [#/Vol] 0.1 10*3/uL Normal 0.0-0.2 [facility] Comment on above: Result Comment: PERF ORMED BY: [place] [address] PATHOLOGIST RIB BENDER GUIDO ELIZALDE M.D. Performed By: #### C BC, PT, PTT, CMP #### [facility] [address] Basophils/100 WBC (Bld) 0.8 % Normal . [facility] Comment on above: Performed By: #### C BC, PT, PTT, CMP #### [facility] [address] [place] [address] [place] Eosinophils (Bld) [#/Vol] 0.1 10*3/uL Normal 0.0-0.45 [facility] Comment on above: Performed By: #### C BC, PT, PTT, CMP #### [facility] [place] [address] [place] [address] [place] Eosinophils/100 WBC (Bld) 1.9 % Normal . [facility] Comment on above: Performed By: #### C BC, PT, PTT, CMP #### [facility] [address] [place] [address] [place] Erythrocyte distribution width (RBC) [Ratio] 13.8 % Normal 11.9-15.3 [facility] Comment on above: Performed By: #### C BC, PT, PTT, CMP #### [facility] [address] [place] [address] [place] Hematocrit (Bld) [Volume fraction] 41.8 % Normal 34.0-46.4 [facility] Comment on above: Performed By: #### C BC, PT, PTT, CMP #### [facility] [place] [address] Hemoglobin (Bld) [Mass/Vol] 13.7 g/dL Normal 11.8-15.4 [facility] Comment on above: Performed By: #### C BC, PT, PTT, CMP #### [address] Lymphocytes (Bld) [#/Vol] 2.1 10*3/uL Normal 1.00-4.8 [facility] Comment on above: Performed By: #### C BC, PT, PTT, CMP #### [address] Lymphocytes/100 WBC (Bld) 32.8 % Normal . [facility] Comment on above: Performed By: #### C BC, PT, PTT, CMP #### [address] MCH (RBC) [Entitic mass] 30.2 pg Normal 24.7-34.3 [facility] Comment on above: Performed By: #### C BC, PT, PTT, CMP #### [address] MCV (RBC) [Entitic vol] 92.0 fL Normal 80-100 [facility] Comment on above: Performed By: #### C BC, PT, PTT, CMP #### [address] Mean Corpuscular HGB Conc 32.8 g/dL Normal 32.0-35.0 [facility] Comment on above: Performed By: #### C BC, PT, PTT, CMP #### [facility] [place] [address] [place] [address] [place] Monocytes (Bld) [#/Vol] 0.5 10*3/uL Normal 0.0-0.8 [facility] Comment on above: Performed By: #### C BC, PT, PTT, CMP #### [place] [address] [place] Monocytes/100 WBC (Bld) 7.6 % Normal . [facility] Comment on above: Performed By: #### C BC, PT, PTT, CMP #### [address] Neutrophils (Bld) [#/Vol] 3.7 10*3/uL Normal 1.8-7.7 [facility] Comment on above: Performed By: #### C BC, PT, PTT, CMP #### [address] Neutrophils/100 WBC (Bld) 56.9 % Normal . [facility] Comment on above: Performed By: #### C BC, PT, PTT, CMP #### [address] Nucleated RBC/100 WBC (Bld) [Ratio] 0.1 % Normal 0-0.5 [facility] Comment on above: Performed By: #### C BC, PT, PTT, CMP #### [address] Platelet mean volume (Bld) [Entitic vol] 9.0 fL Normal 6.3-10.7 [facility] Comment on above: Performed By: #### C BC, PT, PTT, CMP #### [address] Platelets (Bld) [#/Vol] 277 10*3/uL Normal 150-450 [facility] Comment on above: Performed By: #### C BC, PT, PTT, CMP #### [address] RBC (Bld) [#/Vol] 4.55 10*6/uL Normal 3.60-5.00 [facility] [facility] Comment on above: Performed By: #### C BC, PT, PTT, CMP #### [address] WBC (Bld) [#/Vol] 6.4 10*3/uL Normal 4.5-11.0 [facility] Comment on above: Performed By: #### C BC, PT, PTT, CMP #### [facility] [address] [place] [address] [place] Creatinine and Glomerular fi ltration rate.predicted panel (S/P/Bld)Ordered By: Atul Vera on 03-09-2022 Creatinine [Mass/Vol] 1.04 mg/dL 0.44-1.03 [facility] ECG 12 lead ECGon 03-09-2022 ECG 12 lead ECG [facility] [address] [place] [address] Electrocardiograph Report Signed Patient: Saeed Sarabia MR#: [id number] : 1940 Acct:[id number] Age/Sex: 81 / F ADM Date: 03/09/22 Loc: Room: Type: [facility] Attending Dr: Atul Vera MD Ordering Provider: [...] Piedad Lockhart DO 03/12 Normal [facility] Eosinophils Auto (Bld) [#/Vo l]Ordered By: Atul Vera on 03-09-2022 Eosinophils (Bld) [#/Vol] 0.1 10*3/uL 0.0-0.45 [facility] Eosinophils/100 WBC Auto (Bl d)Ordered By: Atul Vera on 03-09-2022 Eosinophils/100 WBC (Bld) 1.9 % [facility] Erythrocyte distribution wid th Auto (RBC) [Ratio]Ordered By: Atul Vera on 03-09-2022 Erythrocyte distribution width (RBC) [Ratio] 13.8 % 11.9-15.3 [facility] Estimated glomerular filtrat ion rate (GFR) non- AmericanOrdered By: Atul Vera on 03-09-2022 GFR/1.73 sq M.predicted among non-blacks MDRD (S/P/Bld) [Vol rate/Area] 51 mL/Min [facility] Hematocrit Auto (Bld) [Volum e fraction]Ordered By: Atul Vera on 03-09-2022 Hematocrit (Bld) [Volume fraction] 41.8 % 34.0-46.4 [facility] Laboratory - Hematology and Cell countsOrdered By: Atul Vera on 03-09-2022 Nucleated RBC/100 WBC (Bld) [Ratio] 0.1 % 0-0.5 [facility] Lymphocytes Auto (Bld) [#/Vo l]Ordered By: Atul Vera on 03-09-2022 Lymphocytes (Bld) [#/Vol] 2.1 10*3/uL 1.00-4.8 [facility] Lymphocytes/100 WBC Auto (Bl d)Ordered By: Atul Vera on 03-09-2022 Lymphocytes/100 WBC (Bld) 32.8 % [facility] MCH Auto (RBC) [Entitic mass ]Ordered By: Atul Vera on 03-09-2022 MCH (RBC) [Entitic mass] 30.2 pg 24.7-34.3 [facility] MCHC Auto (RBC) [Mass/Vol]Or dered By: Atul Vera on 03-09-2022 MCHC (RBC) [Mass/Vol] 32.8 g/dL 32.0-35.0 [facility] MCV Auto (RBC) [Entitic vol] Ordered By: Atul Vera on 03-09-2022 MCV (RBC) [Entitic vol] 92.0 fL 80-100 [facility] Monocytes Auto (Bld) [#/Vol] Ordered By: Atul Vera on 03-09-2022 Monocytes (Bld) [#/Vol] 0.5 10*3/uL 0.0-0.8 [facility] Monocytes/100 WBC Auto (Bld) Ordered By: Atul Vera on 03-09-2022 Monocytes/100 WBC (Bld) 7.6 % [facility] Neutrophils Auto (Bld) [#/Vo l]Ordered By: Atul Vera on 03-09-2022 Neutrophils (Bld) [#/Vol] 3.7 10*3/uL 1.8-7.7 [facility] Neutrophils/100 WBC Auto (Bl d)Ordered By: Atul Vera on 03-09-2022 Neutrophils/100 WBC (Bld) 56.9 % [facility] No Panel InformationOrdered By: Atul Vera on 03-09-2022 Estimated GFR () > 60 mL/Min [facility] Comment on above: GFR estimated refere nce range: According to KDOQI guidelines, <60 ml/min/1.73m2 is sufficient to diagnose a patient with chronic kidney disease. Pharmacy Creatinine Clearance (Chem N/A [facility] Platelet mean volume Auto (B ld) [Entitic vol]Ordered By: Atul Vera on 03-09-2022 Platelet mean volume (Bld) [Entitic vol] 9.0 fL 6.3-10.7 [facility] Platelets Auto (Bld) [#/Vol] Ordered By: Atul Vera on 03-09-2022 Platelets (Bld) [#/Vol] 277 10*3/uL 150-450 [facility] RBC Auto (Bld) [#/Vol]Ordere d By: Atul Vera on 03-09-2022 RBC (Bld) [#/Vol] 4.55 10*6/uL 3.60-5.00 [facility] Serum or plasma calcium nakul urement (mass/volume)Ordered By: Atul Vera on 03-09-2022 Calcium [Mass/Vol] 9.6 mg/dL 8.2-10.2 [facility] Serum or plasma chloride juliana surement (moles/volume)Ordered By: Atul Vera on 03-09-2022 Chloride [Moles/Vol] 99 mmol/L 95-114 [facility] Serum or plasma glucose nakul urement (mass/volume)Ordered By: Atul Vera on 03-09-2022 Glucose [Mass/Vol] 134 mg/dL 70-100 [facility] Comment on above: ADA recommended refe rence range Random Glucose Reference Range is dependent on time and content of last meal. Glucose of more than 200 mg/dL in a nonstressed, ambulatory subject supports the diagnosis of Diabetes Mellitus. Serum or plasma potassium me asurement (moles/volume)Ordered By: Atul Vera on 03-09-2022 Potassium [Moles/Vol] 4.8 mmol/L 3.5-5.1 [facility] Serum or plasma sodium measu rement (moles/volume)Ordered By: Atul Vera on 03-09-2022 Sodium [Moles/Vol] 139 mmol/L 136-146 [facility] Serum or plasma total carbon dioxide measurement (moles/volume)Ordered By: Atul Vera on 03-09-2022 CO2 [Moles/Vol] 26.1 mmol/L 22.0-30.0 [facility] Serum or plasma urea nitroge n measurement (mass/volume)Ordered By: Atul Vera on 03-09-2022 Urea nitrogen [Mass/Vol] 21 mg/dL 9-23 [facility] MRI LSPINE WO CONon 02-19-20 22 MRI [facility] WO CON EXAMINATION: MRI LSCHINO WO CON HISTORY: Lumbar spondylosis with myelopathy [...] by: SHEILA INIGUEZ Date: 2022-02-18 11:32 Normal [facility] US ARTERY LEG BILon 02-12-20 US [...] by: SHEILA INIGUEZ Date: 2022-02-11 16:21 Normal [facility] XR LSPINE 2_3 VIEWSon 2021 XR [...] by: SHEILA INIGUEZ Date: 2022-02-11 17:09 Normal [facility] VITAMIN B12on 02-10-2022 Cobalamin (Vitamin B12) [Mass/Vol] 359 pg/mL Normal 232-1245 [facility] Comment on above: Performed By: #### V B12LC #### [facility] [address] [address] [address] Adilene Koo CBC AUTO DIFFon 02-09-2022 BASO # 0.0 103/ul Normal 0.0-0.1 [facility] Comment on above: Performed By: #### C BC ####[facility] [address] [address]Dr. Adilene Koo Basophils/100 WBC (Bld) 0.2 % Normal 0.2-2.0 [facility] Comment on above: Performed By: #### C BC ####[facility] [address] [address]Dr. Adilene Koo EO # 0.1 103/ul Normal 0.0-0.7 [facility] Comment on above: Performed By: #### C BC ####[facility] [address] [address]Dr. Adilene Koo Eosinophils/100 WBC (Bld) 1.5 % Normal 0.9-7.0 [facility] Comment on above: Performed By: #### C BC ####[facility] [address] [address]Dr. Adilene Koo Erythrocyte distribution width (RBC) [Ratio] 13.2 % Normal 11.0-15.0 [facility] Comment on above: Performed By: #### C BC ####[facility] [address] [address]Dr. Adilene Koo Hematocrit (Bld) [Volume fraction] 46.3 % Normal 36.0-48.0 [facility] Comment on above: Performed By: #### C BC ####[facility] [address] [address]Dr. Adilene Koo Hemoglobin (Bld) [Mass/Vol] 14.1 g/dL Normal 12.0-16.0 [facility] Comment on above: Performed By: #### C BC ####[facility] [address] [place], [place] [address]Dr. dAilene Koo IG # 0.02 10e3/ul Normal 0.00-0.03 [facility] Comment on above: Performed By: #### C BC ####[facility] [address] [place], [place] [address]Dr. Adilene Hayes IG % 0.2 % Normal 0.0-0.5 [facility] Comment on above: Performed By: #### C BC ####[facility] [address] [place], [place] [address]Dr. Adilene Hayes LYMPH # 2.4 103/ul Normal 1.2-3.8 [facility] Comment on above: Performed By: #### C BC ####[facility] [address] [place], [place] [address]DrKen Adilene Hayes Lymphocytes/100 WBC (Bld) 29.9 % Normal 20.5-60.0 [facility] Comment on above: Performed By: #### C BC ####[facility] [address] [place], [place] [address]DrKen Adilene Hayes MANUAL DIFF REQ NO Normal [facility] Comment on above: Performed By: #### C BC ####[facility] [address] [place], [place] [address]Dr. Adilene Hayes MCH (RBC) [Entitic mass] 29.2 pg Normal 26.7-34.0 [facility] Comment on above: Performed By: #### C BC ####[facility] [address] [place], [place] [address]Dr. Josephinerossy Koo MCHC (RBC) [Mass/Vol] 30.5 g/dL Normal 29.9-35.2 [facility] Comment on above: Performed By: #### C BC ####[facility] [address] [place], [place] [address]DrKen Koo MCV (RBC) [Entitic vol] 95.9 fL Normal 81.0-99.0 [facility] Comment on above: Performed By: #### C BC ####[facility] [address] [place], [place] [address]DrKen Koo MONO # 0.6 103/ul Normal 0.3-0.8 [facility] Comment on above: Performed By: #### C BC ####[facility] [address] [place], [place] [address]DrKen Koo Monocytes/100 WBC (Bld) 8.0 % Normal 1.7-12.0 [facility] Comment on above: Performed By: #### C BC ####[facility] [address] [place], [place] [address]DrKen Koo NEUT # 4.8 103/ul Normal 1.4-6.5 [facility] Comment on above: Performed By: #### C BC ####[facility] [address] [place], [place] [address]DrKen Koo Neutrophils/100 WBC (Bld) 60.2 % Normal 43.0-75.0 [facility] Comment on above: Performed By: #### C BC ####[facility] [address] [place], [place] [address]DrKen Koo Platelet mean volume (Bld) [Entitic vol] 10.9 fL Normal 9.5-13.5 [facility] Comment on above: Performed By: #### C BC ####[facility] [address] [place], [place] [address]DrKen Koo PLT 276 103/ul Normal 150-450 [facility] Comment on above: Performed By: #### C BC ####[facility] [address] [place], [place] [address]DrKen Koo RBC 4.83 106/ul Normal 4.20-5.40 [facility] Comment on above: Performed By: #### C BC ####[facility] [address] [address]DrKen Koo WBC 8.0 103/ul Normal 4.0-11.0 [facility] Comment on above: Performed By: #### C BC ####[facility] [address] [address]Dr. Adilene Koo FREE T3on 02-09-2022 FREE T3 2.41 pg/mlL Normal 2.18-3.98 [facility] Comment on above: Performed By: #### B MP, FT3, TSH #### [facility] [address] [address] [address] Adilene Koo FREE T4on 02-09-2022 Free T4 [Mass/Vol] 1.39 ng/dL Normal 0.76-1.46 [facility] Comment on above: Performed By: #### F T4 ####[facility] [address] [address]Dr. Adilene Koo GLYCOHEMOGLOBIN A1Con 2021 ADA RECOMMENDATION SEE BELOW Normal [facility] Comment on above: Result Comment: ADA RECOMMENDED LIMIT 4.0 - 6.0 ADA THERAPEUTIC TARGET < 7.0 ACTION SUGGESTED > 7.0 Performed By: #### A 1C ####[facility] [address] [address]DrKen Koo Glucose [Mass/Vol] 137 mg/dL Normal [facility] Comment on above: Performed By: #### A 1C ####[facility] [address] [address]Dr. Adilene Koo HbA1c (Bld) [Mass fraction] 6.4 % Critically high 4.5-6.2 [facility] Comment on above: Performed By: #### A 1C ####[facility] [address] [address]Dr. Adilene Koo PROF CHEM 8 (BAS METB)on Anion gap [Moles/Vol] 9.1 mmol/L Normal [facility] Comment on above: Performed By: #### B MP, FT3, TSH #### [facility] [address] [place] [address] Dr. Adilene Koo Calcium [Mass/Vol] 9.0 mg/dL Normal 8.5-10.1 [facility] Comment on above: Performed By: #### B MP, FT3, TSH #### [facility] [address] [place] [address] Dr. Adilene Koo Chloride [Moles/Vol] 105 mmol/L Normal 98-107 [facility] Comment on above: Performed By: #### B MP, FT3, TSH #### [facility] [address] [place] [address] Dr. Adilene Koo CO2 [Moles/Vol] 30.5 mmol/L Normal 21.0-32.0 [facility] Comment on above: Performed By: #### B MP, FT3, TSH #### [facility] [address] [place] [address] Dr. Adilene Koo Creatinine [Mass/Vol] 0.93 mg/dL Normal 0.55-1.02 [facility] Comment on above: Performed By: #### B MP, FT3, TSH #### [facility] [address] [place] [address] Dr. Adilene Koo EGFR-AF TURKS AND CAICOS ISLANDER >60 Normal >=60 [facility] Comment on above: Performed By: #### B MP, FT3, TSH #### [facility] [address] [place] [address] Dr. Adilene Koo EGFR-NON AF TURKS AND CAICOS ISLANDER 58 mL/min/1.73m2 Critically low >=60 [facility] Comment on above: Performed By: #### B MP, FT3, TSH #### [facility] [address] [place] [address] Dr. Adilene Koo Glucose [Mass/Vol] 105 mg/dL Normal 74-106 [facility] Comment on above: Performed By: #### B MP, FT3, TSH #### [facility] [address] [place] [address] Dr. Adilene Koo Potassium [Moles/Vol] 4.6 mmol/L Normal 3.5-5.1 [facility] Comment on above: Performed By: #### B MP, FT3, TSH #### [facility] [address] [address] [address] Adilene Koo Sodium [Moles/Vol] 140 mmol/L Normal 136-145 [facility] Comment on above: Performed By: #### B MP, FT3, TSH #### [facility] [address] [address] [address] Adilene Koo Urea nitrogen [Mass/Vol] 20.0 mg/dL Critically high 7.0-18 .0 [facility] Comment on above: Performed By: #### B MP, FT3, TSH #### [facility] [address] [address] [address] Adilene Koo Urea nitrogen/Creatinine [Mass ratio] 21.5 mg/mg Normal [facility] Comment on above: Performed By: #### B MP, FT3, TSH #### [facility] [address] [address] [address] Adilene Koo TSHon 02-09-2022 TSH 0.134 uIU/mL Critically low 0.470-4.680 [facility] Comment on above: Performed By: #### B MP, FT3, TSH #### [facility] [address] [address] [address] Adilene Koo TSH RANGE SEE BELOW Normal [facility] Comment on above: Result Comment: <0.3 4 UIU/ml HYPERTHYROID 0.34-5.60 UIU/ml EUTHYROID >5.60 UIU/ml HYPOTHYROID Performed By: #### B MP, FT3, TSH #### [facility] [address] [place] [address] Dr. Adilene Koo Vital Signs Date Time Vital Sign Value Performing Clinician Facility 05-22-2025 10:32-0400 Body mass index (BMI) [Ratio] 27.02 kg/m2 Galindo Miller RN TRANSITION Work Phone: [facility] 05-22-2025 10:32-0400 Body temperature 97.81 [degF] Galindo Aichholz RN TRANSITION Work Phone: [facility] 05-22-2025 10:32-0400 Body weight 71.4 kg Galindo Aichholz RN TRANSITION Work Phone: [facility] 05-22-2025 10:32-0400 Diastolic blood pressure 82 mm[Hg] Galindo Aichholz RN TRANSITION Work Phone: [facility] 05-22-2025 10:32-0400 Heart rate 65 /min Galindo Aichholz RN TRANSITION Work Phone: [facility] 05-22-2025 10:32-0400 Respiratory rate 18 /min Galindo Aichholz RN TRANSITION Work Phone: [facility] 05-22-2025 10:32-0400 SaO2% (BldA) [Mass fraction] 96 % Galindo Aichholz RN TRANSITION Work Phone: [facility] 05-22-2025 10:32-0400 Systolic blood pressure 118 mm[Hg] Galindo Aichholz RN TRANSITION Work Phone: [facility] 02-18-2025 10:34-0400 Body mass index (BMI) [Ratio] 27.57 kg/m2 Galindo Aichholz RN TRANSITION Work Phone: [facility] 02-18-2025 10:34-0400 Body temperature 97.81 [degF] Galindo Aichholz RN TRANSITION Work Phone: [facility] 02-18-2025 10:34-0400 Body weight 72.85 kg Galindo Aichholz RN TRANSITION Work Phone: [facility] 02-18-2025 10:34-0400 Diastolic blood pressure 70 mm[Hg] Galindo Aichholz RN TRANSITION Work Phone: [facility] 02-18-2025 10:34-0400 Heart rate 57 /min Galindo Aichholz RN TRANSITION Work Phone: [place] [id number] 10:34-0400 Respiratory rate 20 /min Galindo Miller RN TRANSITION Work Phone: [facility] 02-18-2025 10:34-0400 SaO2% (BldA) [Mass fraction] 95 % Galindo Miller RN TRANSITION Work Phone: [facility] 02-18-2025 10:34-0400 Systolic blood pressure 128 mm[Hg] Galindo Miller RN TRANSITION Work Phone: [facility] 01-17-2025 10:18-0400 Body mass index (BMI) [Ratio] 26.01 kg/m2 Dinora Pack [employer]HOSPICE EXECUTIVE DIRECTOR Work Phone: [facility] 01-17-2025 10:18-0400 Body weight 73.1 kg Dinora Pack [employer].HOSPICE EXECUTIVE DIRECTOR Work Phone: [facility] 01-17-2025 10:18-0400 Diastolic blood pressure 74 mm[Hg] Dinora Pack [employer].HOSPICE EXECUTIVE DIRECTOR Work Phone: [facility] 01-17-2025 10:18-0400 Heart rate 62 /min Dinora Pack [employer].HOSPICE EXECUTIVE DIRECTOR Work Phone: [facility] 01-17-2025 10:18-0400 SaO2% (BldA) [Mass fraction] 99 % Dinora Pack [employer].HOSPICE EXECUTIVE DIRECTOR Work Phone: [facility] 01-17-2025 10:18-0400 Systolic blood pressure 167 mm[Hg] Dinora Pack [employer].HOSPICE EXECUTIVE DIRECTOR Work Phone: [facility] 12-17-2024 08:54-0400 Body height 167.6 cm Luciana Hirzel DO Work Phone: [facility] 12-17-2024 08:54-0400 Body mass index (BMI) [Ratio] 25.8 kg/m2 Luciana Hirzel DO Work Phone: [facility] 12-17-2024 08:54-0400 Body weight 72.5 kg Luciana Hirzel DO Work Phone: [facility] 12-17-2024 08:54-0400 Diastolic blood pressure 70 mm[Hg] Luciana Green DO Work Phone: [facility] 12-17-2024 08:54-0400 Heart rate 70 /min Luciananabil Green DO Work Phone: [facility] 12-17-2024 08:54-0400 SaO2% (BldA) [Mass fraction] 97 % Luciananabil Green DO Work Phone: [facility] 12-17-2024 08:54-0400 Systolic blood pressure 120 mm[Hg] Luciana Zimmermanzel DO Work Phone: [facility] 12-03-2024 09:00-0500 Body mass index (BMI) [Ratio] 26.67 kg/m2 Galindo Romeliaz RN TRANSITION Work Phone: [facility] 12-03-2024 09:00-0500 Body temperature 98.2 [degF] Galindo Brihholz RN TRANSITION Work Phone: [facility] 12-03-2024 09:00-0500 Body weight 70.49 kg Galindo Aichholz RN TRANSITION Work Phone: [facility] 12-03-2024 09:00-0500 Diastolic blood pressure 76 mm[Hg] Galindo Aichholz RN TRANSITION Work Phone: [facility] 12-03-2024 09:00-0500 Heart rate 64 /min Galindo Aichholz RN TRANSITION Work Phone: [facility] 12-03-2024 09:00-0500 Respiratory rate 18 /min Galindo Aichholz RN TRANSITION Work Phone: [facility] 12-03-2024 09:00-0500 SaO2% (BldA) [Mass fraction] 99 % Galindo Aichholz RN TRANSITION Work Phone: [facility] 12-03-2024 09:00-0500 Systolic blood pressure 130 mm[Hg] Galindo Brihholz RN TRANSITION Work Phone: [facility] 11-15-2024 13:50-0500 Body height 167.6 cm Pacc 2 Work Phone: [facility] 11-15-2024 13:50-0500 Body mass index (BMI) [Ratio] 24.73 kg/m2 Pacc 2 Work Phone: [facility] 11-15-2024 13:50-0500 Body temperature 99.19 [degF] Pacc 2 Work Phone: [facility] 11-15-2024 13:50-0500 Body weight 69.5 kg Pacc 2 Work Phone: [facility] 11-15-2024 13:50-0500 Diastolic blood pressure 56 mm[Hg] Pacc 2 Work Phone: [facility] 11-15-2024 13:50-0500 Heart rate 64 /min Pacc 2 Work Phone: [facility] 11-15-2024 13:50-0500 Respiratory rate 16 /min Pacc 2 Work Phone: [facility] 11-15-2024 13:50-0500 SaO2% (BldA) [Mass fraction] 97 % Pacc 2 Work Phone: [facility] 11-15-2024 13:50-0500 Systolic blood pressure 147 mm[Hg] Pacc 2 Work Phone: [facility] 11-04-2024 08:44-0500 Body height 167.6 cm Luciana Hirzel DO Work Phone: [facility] 11-04-2024 08:44-0500 Body mass index (BMI) [Ratio] 25.09 kg/m2 Luciana Hirzel DO Work Phone: [facility] 11-04-2024 08:44-0500 Body weight 70.5 kg Luciana Hirzel DO Work Phone: [facility] 11-04-2024 08:44-0500 Diastolic blood pressure 82 mm[Hg] Luciana Green DO Work Phone: [facility] 11-04-2024 08:44-0500 Heart rate 80 /min Luciananabil Green DO Work Phone: [facility] 11-04-2024 08:44-0500 SaO2% (BldA) [Mass fraction] 98 % Luciana Green DO Work Phone: [facility] 11-04-2024 08:44-0500 Systolic blood pressure 160 mm[Hg] Luciananabil Green DO Work Phone: [facility] 10-30-2024 11:13-0500 Heart rate 62 /min Galindo Paul RN TRANSITION Work Phone: [facility] 10-30-2024 10:09-0500 Body mass index (BMI) [Ratio] 26.47 kg/m2 Galindo Paul RN TRANSITION Work Phone: [facility] 10-30-2024 10:09-0500 Body temperature 98.49 [degF] Galindo Romeliaz RN TRANSITION Work Phone: [facility] 10-30-2024 10:09-0500 Body weight 69.94 kg Galindo Romeliaz RN TRANSITION Work Phone: [facility] 10-30-2024 10:09-0500 Diastolic blood pressure 69 mm[Hg] Galindo Paul RN TRANSITION Work Phone: [facility] 10-30-2024 10:09-0500 Respiratory rate 18 /min Galindo Romeliaz RN TRANSITION Work Phone: [facility] 10-30-2024 10:09-0500 SaO2% (BldA) [Mass fraction] 95 % Galindo Romeliaz RN TRANSITION Work Phone: [facility] 10-30-2024 10:09-0500 Systolic blood pressure 140 mm[Hg] Galindo Romeliaz RN TRANSITION Work Phone: [facility] 10-29-2024 09:15-0500 Diastolic blood pressure 73 mm[Hg] Us Stro Work Phone: [facility] Comment on above: retaken 10-29-2024 09:15-0500 Heart rate 66 /min Us Stro Work Phone: [facility] 10-29-2024 09:15-0500 Systolic blood pressure 155 mm[Hg] Us Stro Work Phone: [facility] Comment on above: retaken 10-29-2024 09:14-0500 Body height 167.6 cm Us Stro Work Phone: [facility] 10-29-2024 09:14-0500 Body mass index (BMI) [Ratio] 24.21 kg/m2 Us Stro Work Phone: [facility] 10-29-2024 09:14-0500 Body weight 68.04 kg Us Stro Work Phone: [facility] 10-24-2024 13:18-0500 Body height 165.1 cm Luciana Hirzel DO Work Phone: [facility] 10-24-2024 13:18-0500 Body mass index (BMI) [Ratio] 25.79 kg/m2 Luciana Hirzel DO Work Phone: [facility] 10-24-2024 13:18-0500 Body weight 70.3 kg Luciana Hirzel DO Work Phone: [facility] 10-24-2024 13:18-0500 Diastolic blood pressure 70 mm[Hg] Luciana Hirzel DO Work Phone: [facility] 10-24-2024 13:18-0500 Heart rate 65 /min Luciana Hirzel DO Work Phone: [facility] 10-24-2024 13:18-0500 SaO2% (BldA) [Mass fraction] 98 % Luciana Hirzel DO Work Phone: [facility] 10-24-2024 13:18-0500 Systolic blood pressure 120 mm[Hg] Luciana Hirzel DO Work Phone: [facility] 10-16-2024 12:22-0500 Body temperature 99.3 [degF] Briana Torsney PA-C Work Phone: [facility] 10-16-2024 12:22-0500 Diastolic blood pressure 61 mm[Hg] Briana Torsney PA-C Work Phone: [facility] 10-16-2024 12:22-0500 Heart rate 76 /min Briana Torsney PA-C Work Phone: [facility] 10-16-2024 12:22-0500 Respiratory rate 18 /min Briana Torsney PA-C Work Phone: [facility] 10-16-2024 12:22-0500 SaO2% (BldA) [Mass fraction] 98 % Briana Torsney PA-C Work Phone: [facility] 10-16-2024 12:22-0500 Systolic blood pressure 156 mm[Hg] Briana Torsney PA-C Work Phone: [facility] 10-10-2024 15:01-0500 Body mass index (BMI) [Ratio] 26.78 kg/m2 Galindo Paul RN TRANSITION Work Phone: [facility] 10-10-2024 15:01-0500 Body temperature 99.19 [degF] Galindo Paul RN TRANSITION Work Phone: [facility] 10-10-2024 15:01-0500 Body weight 70.76 kg Galindo Paul RN TRANSITION Work Phone: [facility] 10-10-2024 15:01-0500 Diastolic blood pressure 78 mm[Hg] Galindo Paul RN TRANSITION Work Phone: [facility] 10-10-2024 15:01-0500 Heart rate 67 /min Galindo Paul RN TRANSITION Work Phone: [facility] 10-10-2024 15:01-0500 SaO2% (BldA) [Mass fraction] 97 % Galindo Claryholz RN TRANSITION Work Phone: [facility] 10-10-2024 15:01-0500 Systolic blood pressure 138 mm[Hg] Galindo Aichholz RN TRANSITION Work Phone: [facility] 09-30-2024 10:40-0500 Body height 162.6 cm Galindo Aichholz RN TRANSITION Work Phone: [facility] 09-30-2024 10:40-0500 Body mass index (BMI) [Ratio] 26.91 kg/m2 Galindo Aichholz RN TRANSITION Work Phone: [facility] 09-30-2024 10:40-0500 Body temperature 97.81 [degF] Galindo Aichholz RN TRANSITION Work Phone: [facility] 09-30-2024 10:40-0500 Body weight 71.12 kg Galindo Brihholz RN TRANSITION Work Phone: [facility] 09-30-2024 10:40-0500 Diastolic blood pressure 80 mm[Hg] Galindo Aichholz RN TRANSITION Work Phone: [facility] 09-30-2024 10:40-0500 Heart rate 90 /min Galindo Aichholz RN TRANSITION Work Phone: [facility] 09-30-2024 10:40-0500 Respiratory rate 18 /min Galindo Aichholz RN TRANSITION Work Phone: [facility] 09-30-2024 10:40-0500 SaO2% (BldA) [Mass fraction] 99 % Galindo Brihholz RN TRANSITION Work Phone: [facility] 09-30-2024 10:40-0500 Systolic blood pressure 132 mm[Hg] Galindo Aichholz RN TRANSITION Work Phone: [facility] 08-20-2024 09:19-0500 Body temperature 97.81 [degF] Galindo Aichholz RN TRANSITION Work Phone: [facility] 08-20-2024 09:19-0500 Body weight 74.57 kg Galindo Miller RN TRANSITION Work Phone: [facility] 08-20-2024 09:19-0500 Diastolic blood pressure 76 mm[Hg] Galindo Miller RN TRANSITION Work Phone: [facility] 08-20-2024 09:19-0500 Heart rate 59 /min Galindofranky Leónz RN TRANSITION Work Phone: [facility] 08-20-2024 09:19-0500 Respiratory rate 18 /min Galindo Miller RN TRANSITION Work Phone: [facility] 08-20-2024 09:19-0500 SaO2% (BldA) [Mass fraction] 99 % Galindo Miller RN TRANSITION Work Phone: [facility] 08-20-2024 09:19-0500 Systolic blood pressure 148 mm[Hg] Galindo Miller RN TRANSITION Work Phone: [facility] 04-15-2022 06:02-0400 Body temperature 98.2 [degF] MD Atul Vera Work Phone: [facility] 04-15-2022 06:02-0400 Diastolic blood pressure 71 mm[Hg] MD Atul Vera Work Phone: [facility] 04-15-2022 06:02-0400 Heart rate 77 /min MD Atul Vera Work Phone: [facility] 04-15-2022 06:02-0400 Respiratory rate 16 /min MD Atul Vera Work Phone: [facility] 04-15-2022 06:02-0400 SaO2% (BldA) [Mass fraction] 96 % MD Atul Vera Work Phone: [facility] 04-15-2022 06:02-0400 Systolic blood pressure 131 mm[Hg] MD Atul Vera Work Phone: [facility] 04-15-2022 05:59-0400 Body weight 78.3 kg MD Atul Vera Work Phone: [facility] 04-14-2022 07:46-0400 Body height 167.64 cm MD Atul Vera Work Phone: [facility] 04-07-2022 15:42-0400 Body mass index (BMI) [Ratio] 27.7 kg/m2 MD Atul Vera Work Phone: [facility] 03-28-2022 12:00-0400 Body temperature 98 [degF] MD Atul Vera Work Phone: [facility] 03-28-2022 12:00-0400 Diastolic blood pressure 74 mm[Hg] MD Atul Vera Work Phone: [facility] 03-28-2022 12:00-0400 Heart rate 70 /min MD Atul Vera Work Phone: [facility] 03-28-2022 12:00-0400 SaO2% (BldA) [Mass fraction] 96 % MD Atul Vera Work Phone: [facility] 03-28-2022 12:00-0400 Systolic blood pressure 125 mm[Hg] MD Atul Vera Work Phone: [facility] 03-28-2022 11:50-0400 Body height 157.48 cm MD Atul Vera Work Phone: [facility] 03-28-2022 05:56-0400 Body weight 79.1 kg MD Atul Vera Work Phone: [facility] 03-28-2022 03:30-0400 Respiratory rate 19 /min MD Atul Vera Work Phone: [facility] 03-24-2022 04:00-0400 Body height 157.48 cm MD Atul Vera Work Phone: [facility] 03-24-2022 04:00-0400 Body mass index (BMI) [Ratio] 31.6 kg/m2 MD Atul Vera Work Phone: [facility] 03-24-2022 04:00-0400 Body temperature 97.8 [degF] MD Atul Vera Work Phone: [facility] 03-24-2022 04:00-0400 Body weight 78.4 kg MD Atul Vera Work Phone: [facility] 03-24-2022 04:00-0400 Diastolic blood pressure 77 mm[Hg] MD Atul Vera Work Phone: [facility] 03-24-2022 04:00-0400 Heart rate 113 /min MD Atul Vera Work Phone: [facility] 03-24-2022 04:00-0400 Respiratory rate 21 /min MD Atul Vera Work Phone: [facility] 03-24-2022 04:00-0400 SaO2% (BldA) [Mass fraction] 93 % MD Atul Vera Work Phone: [facility] 03-24-2022 04:00-0400 Systolic blood pressure 162 mm[Hg] MD Atul Vera Work Phone: [facility] 03-23-2022 15:30-0400 Body height 167.64 cm Atul Vera Other [facility] [employer] Other 03-23-2022 15:30-0400 Body mass index (BMI) [Ratio] 28.34 kg/m2 Atul Vera Other [employer] Other 03-23-2022 15:30-0400 Body weight 79.65 kg Atul Vera Other [employer] Other 03-09-2022 13:28-0400 Body height 158.75 cm MD Atul Vera Work Phone: [facility] 03-09-2022 13:28-0400 Body mass index (BMI) [Ratio] 32.1 kg/m2 MD Atul Vera Work Phone: [facility] 03-09-2022 13:28-0400 Body temperature 98.7 [degF] MD Atul Vera Work Phone: [facility] 03-09-2022 13:28-0400 Body weight 81 kg MD Atul Vera Work Phone: [facility] 03-09-2022 13:28-0400 Diastolic blood pressure 68 mm[Hg] MD Atul Vera Work Phone: [facility] 03-09-2022 13:28-0400 Heart rate 72 /min MD Atul Vera Work Phone: [facility] 03-09-2022 13:28-0400 Respiratory rate 16 /min MD Atul Vera Work Phone: [facility] 03-09-2022 13:28-0400 SaO2% (BldA) [Mass fraction] 96 % MD Atul Vera Work Phone: [facility] 03-09-2022 13:28-0400 Systolic blood pressure 144 mm[Hg] MD Atul Vera Work Phone: [facility] Encounters Encounter Date Encounter Type Care Provider Facility Start: 07-07-2025 ambulatory CARI NKANSAH-AMANKRA Facility: [place] Start: 06-30-2025 ambulatory CARI NKANSAH-AMANKRA Facility: [place] Start: 05-28-2025 End: 05-28-2025 Clinisync Result Encounter Galindo Miller NP Work Phone: [facility] External Department Unsolicited Start: 05-28-2025 End: 05-28-2025 Clinisync Result Encounter Galindo Aichholz RN TRANSITION Work Phone: [facility] External Department Unsolicited Start: 05-22-2025 End: 05-22-2025 Bamboo flowsheet Galindo Paul RN TRANSITION Work Phone: [facility] Start: 05-22-2025 End: 05-22-2025 Bamboo flowsheet Galindo Paul RN TRANSITION Work Phone: [facility] Start: 05-22-2025 End: 05-22-2025 Office outpatient visit 25 minutes Galindo Miller RN TRANSITION Work Phone: [facility] Comment on above: Type 2 diabetes fernandez [...] perforation Start: 05-22-2025 End: 05-22-2025 ambulatory GALINDO PAUL Not Available Start: 02-18-2025 End: 02-18-2025 Bamboo flowsheet Galindo Paul RN TRANSITION Work Phone: [facility] Start: 02-18-2025 End: 02-18-2025 Bamboo flowsheet Galindo Paul RN TRANSITION Work Phone: [facility] Start: 02-18-2025 End: 02-18-2025 Patient encounter procedure Galindo Miller RN TRANSITION Work Phone: [facility] Comment on above: Encounter for subseq uent [...] End: 01-31-2025 Clinisync Result Encounter Galindo Paul RN TRANSITION Work Phone: [facility] External Department Unsolicited Start: 01-31-2025 End: 01-31-2025 Clinisync Result Encounter Galindo Brialexandremegan RN TRANSITION Work Phone: [facility] External Department Unsolicited Start: 01-30-2025 End: 01-30-2025 Orders Only Galindo Miller RN TRANSITION Work Phone: [facility] Comment on above: Benign essential HTN (CMS/HCC) (Primary Dx); Type 2 diabetes mellitus without complication, without long-term current use of insulin; Mixed hyperlipidemia (CMS/HCC); Vitamin B12 deficiency Start: 01-17-2025 End: 01-17-2025 ambulatory ROLANDA CHAPARRO Facility:[facility] Start: 01-17-2025 End: 01-17-2025 Patient encounter procedure Dinora Carroll APRN.HOSPICE EXECUTIVE DIRECTOR Work Phone: Gastroenterology Comment on above: Calculus of gallblad josué without cholecystitis without obstruction (Primary Dx); Unintentional weight loss Start: 12-17-2024 End: 12-17-2024 ambulatory LUCIANA GREEN Facility:[facility] Start: 12-17-2024 End: 12-17-2024 Patient encounter [...] Start: 12-06-2024 End: 12-06-2024 ambulatory GALINDO MILLER Facility:[facility] Start: 12-03-2024 End: 12-03-2024 Office outpatient visit 25 minutes Galindo Miller RN TRANSITION Work Phone: [facility] Comment on [...] Encounter for other preprocedural examination BRENDON DORSEY [facility] Start: 11-15-2024 End: 11-15-2024 Subsequent hospital visit by physician Jaskaran [place] Work Phone: Radiology Comment on above: Pre-op evaluation [Z 01.818] Start: 11-15-2024 End: 11-19-2024 Clinisync Result Encounter Generic External Data Provider [facility] External Department Unsolicited Start: 11-15-2024 End: 11-19-2024 Clinisync Result Encounter Generic External Data Provider [facility] External Department Unsolicited Start: 11-15-2024 End: 11-15-2024 Patient encounter procedure Maxine Kaba RT(R) Radiology Start: 11-15-2024 End: 11-17-2024 Refill Galindo Miller RN TRANSITION Work Phone: [facility] Comment on above: Acute gastric ulcer without hemorrhage or perforation Start: 11-15-2024 End: 11-15-2024 Admission to [place] [id number] Work Phone: Pre Anesthesia Start: 11-15-2024 End: [...] atrial fibrillation (HCC); 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; Other hyperlipidemia Start: 11-15-2024 End: 11-15-2024 Preprocedural examination done Pac 2 Work Phone: [facility] Work Phone: Start: 11-13-2024 End: 11-13-2024 ambulatory [facility] Start: 11-12-2024 End: 11-12-2024 ambulatory [facility] Provider Obstetrics/Gynecolog y Comment on above: Polyp removal proced ure Start: 11-07-2024 End: 11-14-2024 Telephone encounter Luciana Green DO Work Phone: Obstetrics/Gynecology Comment on above: Schedule Surgery Start: 11-07-2024 End: 11-07-2024 ambulatory [facility] Start: 11-07-2024 End: 11-07-2024 Encounter for preprocedural cardiovascular examination [facility] Start: 11-05-2024 End: 11-05-2024 Telephone encounter Luciana Green DO Work Phone: Obstetrics/Gynecology Start: 11-04-2024 End: 11-04-2024 ambulatory LUCIANA GREEN Facility:[facility] Start: 11-04-2024 End: 11-04-2024 Patient encounter procedure Luciana M Hirzel DO Work Phone: Obstetrics/Gynecology Comment on above: Endometrial polyp (P rimary Dx) Start: 10-30-2024 End: 10-30-2024 Bamboo flowsheet Galindo Miller RN TRANSITION Work Phone: [facility] Start: 10-30-2024 End: 10-30-2024 Bamboo flowsheet Galindo Miller RN TRANSITION Work Phone: [facility] Start: 10-30-2024 End: 10-30-2024 Telephone encounter Gabriela Centeno MD Work Phone: Obstetrics/Gynecology Start: 10-30-2024 End: 10-30-2024 Office outpatient visit 25 minutes Galindo Miller RN TRANSITION Work Phone: [facility] Comment on above: Benign essential [...] Start: 10-29-2024 End: 10-29-2024 ambulatory BRENDON DORSEY Facility:[facility] Start: 10-29-2024 End: 10-29-2024 Patient encounter procedure [employer] [facility] Work Phone: OB/Gynecology Comment on above: Thickened endometriu m (Primary Dx); Endometrial polyp; Endocervical polyp; Abnormal ultrasound of endometrium Start: 10-24-2024 End: 10-24-2024 ambulatory LUCIANA GREEN Facility:[facility] Start: 10-24-2024 End: 10-24-2024 Patient encounter procedure Luciana Green DO Work Phone: Obstetrics/Gynecology Comment on above: Thickened endometriu m (Primary Dx) Start: 10-21-2024 End: 10-22-2024 Clinisync Result Encounter Generic External Data Provider [facility] External Department Unsolicited Start: 10-21-2024 End: 10-22-2024 Clinisync Result Encounter Generic External Data Provider [facility] External Department Unsolicited Start: 10-21-2024 End: 10-21-2024 Evaluation and management of inpatient GALINDO MILLER Facility:[facility] Start: 10-16-2024 End: 10-21-2024 Evaluation and management of inpatient AL THOMPSON Facility:[facility] Start: 10-16-2024 End: 10-16-2024 Emergency department patient visit BRENDON DORSEY Facility:[facility] Start: 10-16-2024 End: 10-16-2024 ambulatory SELF Facility:[facility] Start: 10-16-2024 End: 10-16-2024 Patient encounter procedure Briana Schwarz PA-C Work Phone: [facility] Comment on above: Confusion (Primary D x); Abdominal pain, unspecified abdominal location Start: 10-10-2024 End: 10-10-2024 Office outpatient visit 15 minutes Galindo Miller NP Work Phone: [facility] Comment on above: Non-recurrent acute suppurative otitis media of right ear without spontaneous rupture of tympanic membrane (Primary Dx); Acute non-recurrent sinusitis of other sinus Start: 10-10-2024 End: 10-10-2024 ambulatory GALNIDO AICHHOLZ Not Available Start: 10-10-2024 End: 10-10-2024 Bamboo flowsheet Galindo Aichholz RN TRANSITION Work Phone: [facility] Start: 10-10-2024 End: 10-10-2024 Bamboo flowsheet Galindo Aichholz RN TRANSITION Work Phone: [facility] Start: 10-07-2024 End: 10-09-2024 Refill Laurie Anton RN TRANSITION Work Phone: [facility] Comment on above: Type 2 diabetes fernandez itus without complications (CMS/HCC) Start: 09-30-2024 End: 09-30-2024 Bamboo flowsheet Galindo Aichholz RN TRANSITION Work Phone: [facility] Start: 09-30-2024 End: 09-30-2024 Bamboo flowsheet Galindo Aichholz RN TRANSITION Work Phone: [facility] Start: 09-30-2024 End: 09-30-2024 Transitional care manage srvc 14 day discharge Galindo Brihfredrickz RN TRANSITION Work Phone: [facility] Comment on [...] Start: 09-20-2024 [facility]: 09-20-[facility]24 Evaluation and management of inpatient DANIA SANDOVAL [facility] Start: 09-19-2024 Evaluation and management of inpatient KAYLEIGH SENIORNCER [facility] Start: 09-18-2024 ambulatory ANNELISE PIERCE [facility] Start: 09-17-2024 Emergency department patient visit ANNELISE PIERCE [facility] Start: 09-17-2024 End: 09-21-2024 Evaluation and management of inpatient EDMUNDO DOMINIQUE [facility] Start: 08-30-2024 End: 08-30-2024 Refill Galindo Miller RN TRANSITION Work Phone: [facility] Comment on above: UTI symptoms (Primar y Dx); Vaginal yeast infection Start: 08-29-2024 End: 08-29-2024 Clinisync Result Encounter Galindo Miller RN TRANSITION Work Phone: [facility] External Department Unsolicited Start: 08-29-2024 End: 08-29-2024 Clinisync Result Encounter Galindo Miller RN TRANSITION Work Phone: [facility] External Department Unsolicited Start: 08-23-2024 End: 08-23-2024 Orders Only Galindo Miller RN TRANSITION Work Phone: [facility] Comment on above: Hypernatremia (Prima ry Dx) Start: 08-20-2024 End: 08-20-2024 Bamboo flowsheet Galindo Miller RN TRANSITION Work Phone: [facility] Start: 08-20-2024 End: 08-20-2024 Bamboo flowsheet Galindo Paul RN TRANSITION Work Phone: [facility] Start: 08-20-2024 End: 08-20-2024 Clinisync Result Encounter Galindo Miller RN TRANSITION Work Phone: [facility] External Department Unsolicited Start: 08-20-2024 End: 08-20-2024 Office outpatient visit 25 minutes Galindo Miller RN TRANSITION Work Phone: [facility] Comment on above: Type 2 diabetes fernandez itus without complication, without long- term current use of insulin ([facility]/HCC) (Primary Dx); Other thrombophilia ([facility]); Type 2 diabetes mellitus with diabetic neuropathy, unspecified ([facility]/HCC); Peripheral vascular disease, unspecified ([facility]/HCC); Unspecified diastolic (congestive) heart failure ([facility]/HCC); Chronic atrial fibrillation (HCC) ([facility]/HCC); Benign essential HTN ([facility]/HCC); Coronary arteriosclerosis ([facility]/HCC); Type 2 diabetes mellitus without complications ([facility]/HCC) Start: 08-20-2024 End: 08-20-2024 ambulatory GALINDO AICHHOLZ Not Available Start: 08-18-2024 End: 08-18-2024 Refill Galindo Aichholz RN TRANSITION Work Phone: [facility] Comment on above: Type 2 diabetes fernandez itus without complications ([facility]/HCC) Start: 08-11-2024 End: 08-12-2024 Refill Galindo Aichholz RN TRANSITION Work Phone: [facility] Comment on above: Type 2 diabetes fernandez itus without complication, without long- term current use of insulin ([facility]) Start: 02-15-2024 Patient encounter procedure Galindo Miller RN TRANSITION Work Phone: [facility] Start: 02-02-2024 End: 02-02-2024 ambulatory [facility] Start: 09-07-2022 Telephone encounter Juice Sears MD Work Phone: Neurology Comment on above: Received Outside Med ical Records ([facility] ) Start: 08-23-2022 End: 08-23-2022 Patient encounter procedure Hal Adam PA-C Work Phone: Neurosurgery Comment on above: Foot drop, right maki t (Primary Dx) Start: 08-15-2022 End: 08-16-2022 ambulatory HOSPICE EXECUTIVE DIRECTOR GALINDO BRIHHOLZ Facility: Start: 07-29-2022 Telephone encounter Juice Sears MD Work Phone: Neurology Comment on above: 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); Foot drop, right foot Start: 06-16-2022 Telephone encounter Juice Sears MD Work Phone: Neurology Comment on above: Forms; Other ([facility]app[facility] Physician Orders) Start: 05-25-2022 Telephone encounter Juice Sears MD Work Phone: Neurology Comment on above: Forms (Physician Ord ers (Radha) - [facility]//) Start: 05-23-2022 End: 07-29-2022 ambulatory HOSPICE EXECUTIVE DIRECTOR GALINDO ROGERSFREDRICKAndrew Facility: Start: 05-17-2022 End: 05-17-2022 Patient encounter procedure Juice Sears MD Work Phone: Neurosurgery Comment on above: Spinal stenosis of l umbar region, unspecified whether neurogenic claudication present (Primary Dx); Right leg weakness Start: 05-12-2022 Telephone encounter Juice Sears MD Work Phone: Neurology Comment on above: General ([facility]) Start: 05-06-2022 Telephone encounter Juice Sears MD Work Phone: Neurology Comment on above: Other ([facility] 04/17/22 - 06/15/22) Start: 04-29-2022 Telephone encounter Juice Sears MD Work Phone: Neurology Comment on above: Forms Start: 04-22-2022 Telephone encounter Juice Sears MD Work Phone: Neurology Comment on above: Forms ([facility]) Start: 04-15-2022 Telephone encounter Juice Sears MD Work Phone: Neurology Comment on above: Other (home health o rders requested) Start: 04-07-2022 End: 04-15-2022 Evaluation and management of inpatient Galindo Pleitez Brialexandrefredrickandrew Facility:[facility] Start: 04-07-2022 End: 04-15-2022 Evaluation and management of inpatient MD Atul Vera Work Phone: [facility] [place] [facility] Start: 04-05-2022 Evaluation and management of inpatient MARGARETTE [facility] Start: 03-24-2022 End: 03-28-2022 ambulatory Galindo Pricilla Miller Facility:[facility] Start: 03-24-2022 End: 03-28-2022 Evaluation and management of inpatient MD Atul Vera Work Phone: [facility] [place] [facility] Start: 03-23-2022 End: 03-23-2022 ambulatory Atul Vera Other [facility] [employer] Other Start: 03-23-2022 Postop follow up vis it related to original rey Vera [facility] Start: 03-17-2022 End: 03-17-2022 ambulatory Galindo Pricilla Miller Facility:[facility] Start: 03-17-2022 End: 03-17-2022 Departed Referred MD Atul Vera Work Phone: [facility] [place] Start: 03-15-2022 ambulatory HOSPICE EXECUTIVE DIRECTOR GALINDO MILLER Facil ity:[facility] Start: 03-09-2022 End: 03-09-2022 ambulatory NON STAFF Facility:[facility] Start: 03-09-2022 End: 03-09-2022 Patient encounter procedure MD Atul Vera Work Phone: [id number] Start: 02-28-2022 End: 02-28-2022 ambulatory Atul Vera Facility:[facility] Start: 02-28-2022 End: 02-28-2022 Patient encounter procedure MD Atul Vera Work Phone: [facility] Start: 02-18-2022 End: 02-19-2022 ambulatory HOSPICE EXECUTIVE DIRECTOR GALINDO PAUL Facility:[facility] Start: 02-11-2022 End: 02-12-2022 ambulatory HOSPICE EXECUTIVE DIRECTOR GALINDO BRIAlexandreMEGAN Facility:[facility] Start: 02-09-2022 End: 02-10-2022 ambulatory HOSPICE EXECUTIVE DIRECTOR GALINDO BRIAlexandreMEGAN Facility: Procedures Date Procedure Procedure Detail Performing Clinician Start: 05-28-2025 Screening mammograph y bi 2-view breast inc cad Galindo Romeliaz RN TRANSITION Work Phone: Start: 01-31-2025 ALL CBC WITH AUTO DIFF Galindo Aicalexandreholz RN TRANSITION Work Phone: Start: 12-06-2024 Antibody screen Generic Provider Start: 12-06-2024 Antibody screen GALINDO TYLER Comment on above: Order Comment: Speci men Type: BLOOD SPECIMENOrdering Facility: [facility] Address: [address] [place] [address] Performed By: #### T SCR ####[facility] BLOOD BANKCLIA [id number] [address] Start: 12-06-2024 [facility] TYPE + SCREEN Gener ic External Data Provider Start: 12-03-2024 Hemoglobin glycosylated a1c Galindo Romeliaz RN TRANSITION Work Phone: Start: 11-15-2024 XR CHEST 2V FRONTAL/LAT Generic External Data Provider Start: 10-29-2024 [facility] SURGICAL PATHOLOGY Generic External Data Provider Start: 10-29-2024 Saline infus sonohysterography w/color doppler Luciana Green DO Work Phone: Start: 10-21-2024 [facility] SURGICAL PATHOLOGY Generic External Data Provider Start: 08-29-2024 ALL BASIC METABOLIC PANEL Galindo Aicalexandreholz RN TRANSITION Work Phone: Start: 08-20-2024 ALL CBC WITH AUTO DIFF Galindo Aicalexandreholz RN TRANSITION Work Phone: Start: 08-20-2024 ALL BASIC METABOLIC PANEL Galindo Aichholz RN TRANSITION Work Phone: Start: 08-20-2024 Hemoglobin glycosylated a1c Galindo Aichholz RN TRANSITION Work Phone: Start: 03-27-2022 Urine culture MD Atul Vera Work Phone: Start: 03-23-2022 Plain chest X-ray MD Osborn Work Phone: Start: 03-23-2022 SARS Antigen (LFIA) MD Atul Vera Work Phone: Start: 02-28-2022 Dual energy X-ray absorptiometry MD Atul Vera Work Phone: Urine culture MD Atul sebastian Work Phone: Plan of Treatment Date Care Activity Detail Author Start: 12-26-2026 Glaucoma screening Diabetes: Retinopathy Screening [facility] Start: 02-23-2026 End: 02-23-2026 Patient encounter procedure 02/23/2026 10:30 AM EDT Office Visit [facility] [address] [place] [address] Galindo Miller, RONNIE [address] [place] [phone] [facility] Start: 01-31-2026 Urine screening for protein Diabetes: Urine Protein Screening [facility] Start: 08-21-2025 End: 08-21-2025 Patient encounter procedure 08/21/2025 9:20 AM EST Office Visit [facility] [address] [place] [address] Galindo Miller, RN TRANSITION [address] [place] [phone] [facility] Start: 06-09-2025 Influenza vaccination Influenza Vaccine (#1) [facility] Start: 06-02-2025 Hemoglobin A1c measurement HbA1C [facility] Start: 05-22-2025 End: 07-22-2026 MG Breast - bilateral Screening Bilateral screening mammogram Imaging Routine Encounter for screening mammogram for malignant neoplasm of breast Expected: 05/22/2025 (Approximate), Expires: 07/22/2026 [facility] Work Phone: Comment on above: Expected: 05/22/2025 (Approximate), Expi res: 07/22/2026 Start: 05-22-2025 End: 05-22-[address] [facility] Comment on above: Type 2 diabetes mellitus [...] 05-02-2025 Hemoglobin A1c measurement Diabetes: Hemoglobin A1C [facility] Start: 03-02-2025 Hemoglobin A1c measurement Diabetes: Hemoglobin A1C [facility] Start: 02-25-2025 Urine screening for protein Diabetes: Urine Protein Screening [facility] Start: 02-18-2025 End: 02-18-[address] [facility] Comment on above: Type 2 diabetes mellitus [...] patient Start: 02-17-2025 Hemoglobin A1c measurement HbA1C [facility] Start: 02-14-2025 Medicare Annual Wellness (AWV) Medicare Annual Wellness (AWV) [facility] Start: 01-30-2025 End: 01-30-2026 CBC W Auto Differential panel - Blood CBC and differential Lab Routine Vitamin B12 deficiency Expected: 01/30/2025 (Approximate), Expires: 01/30/2026 [facility] Work Phone: Comment on above: Expected: 01/30/2025 (Approximate), Expi res: 01/30/2026 Start: 01-30-2025 End: 01-30-2026 Cobalamin (Vitamin B12) [Mass/volume] in Serum or Plasma Vitamin B12 Lab Routine Vitamin B12 deficiency Expected: 01/30/2025 (Approximate), Expires: 01/30/2026 [facility] Comment on above: Expected: 01/30/2025 (Approximate), Expi res: 01/30/2026 Start: 01-30-2025 End: 01-30-2026 Comprehensive metabolic 2000 panel - Serum or Plasma Comprehensive metabolic panel Lab Routine Benign essential HTN (CMS/HCC) Type 2 diabetes mellitus without complication, without long-term current use of insulin Mixed hyperlipidemia (CMS/HCC) Expected: 01/30/2025 (Approximate), Expires: 01/30/2026 [facility] Comment on above: Expected: 01/30/2025 (Approximate), Expi res: 01/30/2026 Start: 01-30-2025 End: 01-30-2026 Hemoglobin A1c/Hemoglobin.total in Blood Hemoglobin A1c Lab Routine Type 2 diabetes mellitus without complication, without long-term current use of insulin Expected: 01/30/2025 (Approximate), Expires: 01/30/2026 [facility] Comment on above: Expected: 01/30/2025 (Approximate), Expi res: 01/30/2026 Start: 01-30-2025 End: 01-30-2026 Lipid 1996 panel - Serum or Plasma Lipid panel Lab Routine Mixed hyperlipidemia (CMS/HCC) Expected: 01/30/2025 (Approximate), Expires: 01/30/2026 [facility] Comment on above: Expected: 01/30/2025 (Approximate), Expi res: 01/30/2026 Start: 01-30-2025 End: 01-30-2026 Microalbumin/Creatinin e panel in random Urine Microalbumin / creatinine, urine ratio Lab Routine Benign essential HTN (CMS/HCC) Type 2 diabetes mellitus without complication, without long-term current use of insulin Expected: 01/30/2025 (Approximate), Expires: 01/30/2026 [facility] Comment on above: Expected: 01/30/2025 (Approximate), Expi res: 01/30/2026 Start: 01-30-2025 End: 01-30-2026 Urinalysis complete panel - Urine Urinalysis with reflex microscopic (clean catch) Lab Routine Benign essential HTN (CMS/HCC) Type 2 diabetes mellitus without complication, without long-term current use of insulin Expected: 01/30/2025 (Approximate), Expires: 01/30/2026 [facility] Comment on above: Expected: 01/30/2025 (Approximate), Expi res: 01/30/2026 Start: 01-24-2025 End: 01-24-2025 Patient encounter procedure 01/24/2025 11:20 AM EDT Office Visit Gastroenterology [address] [place] [address] [place] [address] Dinora Carroll APRN.[address] [place] [address] Evaluate for colonscopy; Abdominal pain, weight loss. Gastroenterology Comment on above: Evaluate for colonscopy; Abdominal pain, weight loss. Start: 01-17-2025 End: 01-17-2025 Patient encounter procedure 01/17/2025 10:30 AM EDT Office Visit Gastroenterology [address] [place] [address] [place] [address] Dinora Carroll APRN[address] [place] [address] Evaluate for colonscopy; Abdominal pain, weight loss. Gastroenterology Comment on above: Evaluate for colonscopy; Abdominal pain, weight loss. Start: 12-19-2024 Glaucoma screening Diabetes: Retinopathy Screening [facility] Start: 12-17-2024 End: 12-17-2024 Patient encounter procedure 12/17/2024 9:00 AM EDT Office Visit Obstetrics/Gynecology [address] [address] [place] [address] [address] POST OP Obstetrics/Gynecology Comment on above: POST OP Start: 12-06-2024 End: 12-06-2024 Admission to same day surgery center 12/06/2024 7:30 AM EST - 12/06/2024 8:50 AM EST Surgery [facility] Operating Room [id number] [place] [address] [place] [address] [facility] [address] [place] [address] EXAM UNDER ANESTHESIA PELVIC / VAGINAL [facility] Operating Room Comment on above: EXAM [...] physician 12/06/2024 7:30 AM EST Hospital Encounter [facility] Operating Room [address] [place], [place] [phone] [place] [address] [address] Endometrial polyp [N84.0] [facility] Operating Room Comment on above: Endometrial polyp [N84.0] Start: 12-03-2024 End: 12-03-2024 Patient encounter procedure 12/03/2024 9:00 AM EST Office Visit [facility] [address] [place] [address] Galindo Miller NP [address] [place] [address] [facility] Start: 11-20-2024 Hemoglobin A1c measurement Diabetes: Hemoglobin A1C [facility] Start: 11-15-2024 End: 11-15-2024 Anesthesia consultation 11/15/2024 1:40 PM EST PAT Pre Anesthesia [address] [facility] [address] [place] [address] DOS 12/06 Pre Anesthesia Comment on above: DOS 12/06 Start: 10-30-2024 End: 10-30-2024 Patient encounter procedure [facility] Comment on above: Delirium due to another [...] Routine Thickened endometrium Expected: 10/24/2024, Expires: 10/24/2025 [facility] Work Phone: Comment on above: Expected: 10/24/2024, Expires: Start: 10-22-2024 End: 10-22-2024 Patient encounter procedure 10/22/2024 8:30 AM EST Office Visit Geriatrics [address] [place] [address] Robby Kim MD [address] [place] [address] Valentin Nurse Britt [place]sted [address] [place] [address] COGNITIVE DECLINE Geriatrics Comment on above: COGNITIVE DECLINE Start: 10-10-2024 End: 10-10-2024 Patient encounter procedure 10/10/2024 3:00 PM EST Office Visit [facility] [address] [place] [address] Galindo Miller, RONNIE [address] [place] [phone] Arrived [facility] Comment on above: Arrived Start: 10-09-2024 Advance Directive Discussion Advance Directive Discussion [facility] Start: 09-30-2024 End: 09-30-2024 Patient encounter procedure 09/30/2024 10:30 AM EST Office Visit [facility] [address] [place] [phone] Galindo Miller NP [address] [place] [address] Acute metabolic encephalopathy (Primary Dx); Type 2 diabetes mellitus with diabetic neuropathy, without long-term current use of insulin (CMS/HCC); Chronic atrial fibrillation (HCC) (CMS/HCC); Benign essential HTN (CMS/HCC); Chronic diastolic congestive heart failure (CMS/HCC); Acute cholecystitis; Type 2 diabetes mellitus without complication, without long-term current use of insulin (CMS/HCC); Thickened endometrium [facility] Comment on above: Acute metabolic [...] Routine Hypernatremia Expected: 09/06/2024 (Approximate), Expires: 08/23/2025 [facility] Work Phone: Comment on above: Expected: 09/06/2024 (Approximate), Expi res: 08/23/2025 Start: 09-06-2024 End: 08-23-2025 Osmolality of Serum or Plasma Osmolality Lab Routine Hypernatremia Expected: 09/06/2024 (Approximate), Expires: 08/23/2025 [facility] Comment on above: Expected: 09/06/2024 (Approximate), Expi res: 08/23/2025 Start: 09-06-2024 End: 08-23-2025 Osmolality, urine Osmolality, urine Lab Routine Hypernatremia Expected: 09/06/2024 (Approximate), Expires: 08/23/2025 [facility] Comment on above: Expected: 09/06/2024 (Approximate), Expi res: 08/23/2025 Start: 09-06-2024 End: 08-23-2025 Urinalysis complete panel - Urine Urinalysis with reflex microscopic (clean catch) Lab Routine Hypernatremia Expected: 09/06/2024 (Approximate), Expires: 08/23/2025 [facility] Comment on above: Expected: 09/06/2024 (Approximate), Expi res: 08/23/2025 Start: 08-20-2024 End: 08-20-2025 Basic metabolic 1998 panel - Serum or Plasma Basic metabolic panel Lab Routine Type 2 diabetes mellitus without complication, without long-term current use of insulin (CMS/HCC) Expected: 08/20/2024 (Approximate), Expires: 08/20/2025 [facility] Work Phone: Comment on above: Expected: 08/20/2024 (Approximate), Expi res: 08/20/2025 Start: 08-20-2024 End: 08-20-2025 CBC W Auto Differential panel - Blood CBC and differential Lab Routine Other thrombophilia (CMS/HCC) Chronic atrial fibrillation (HCC) (CMS/HCC) Expected: 08/20/2024 (Approximate), Expires: 08/20/2025 [facility] Comment on above: Expected: 08/20/2024 (Approximate), Expi res: 08/20/2025 Start: 08-20-2024 End: 08-20-2024 Patient encounter procedure 08/20/2024 9:20 AM EST Office Visit [facility] [address] [place] [address] Galindo Miller, RONNIE [address] [place] [phone] [facility] Start: 06-09-2024 Covid-19 Vaccine ( season) Covid-19 Vaccine ( season) [facility] Start: 06-09-2024 Influenza vaccination Influenza Vaccine (#1) [facility] Start: 11-25-2023 Hemoglobin A1c measurement Diabetes: Hemoglobin A1C [facility] Start: 06-09-2022 Influenza vaccination INFLUENZA (#1) [facility] Start: 04-14-2022 [facility] Work Phone: Start: 04-07-2022 Hospital admission [facility] Work Phone: Start: 04-07-2022 Referral to clinical therapeutic recreation leader [facility] Work Phone: Start: 03-28-2022 [facility] Work Phone: Start: 03-27-2022 Urine culture Urine Culture [facility] Start: 03-24-2022 Referral to neurologist [facility] Work Phone: Start: 03-24-2022 Hospital admission [facility] Work Phone: Start: 03-17-2022 Excision of lumbar intervertebral disc OR Lumbar Discectomy (Not Applicable) [facility] Start: 11-23-2021 COVID-19 VACCINE (4 - Booster for Pfizer series) COVID-19 VACCINE (4 - Booster for Pfizer series) [facility] Start: 10-09-2021 ADVANCE DIRECTIVE DISCUSSION ADVANCE DIRECTIVE DISCUSSION [facility] Start: 10-09-2021 DEPRESSION ASSESSMENT DEPRESSION ASSESSMENT [facility] Start: 09-17-2021 COVID-19 VACCINE (4 - Booster for Pfizer series) COVID-19 VACCINE (4 - Booster for Pfizer series) [facility] Start: 2015 RSV Vaccine (1 - 1-dose 75+ series) RSV Vaccine (1 - 1-dose 75+ series) [facility] Start: 2005 BONE DENSITY BONE DENSITY [facility] Start: 2005 Screening for osteoporosis Bone Density Screening [facility] Start: 1990 SHINGRIX VACCINE (1 of 2) SHINGRIX VACCINE (1 of 2) [facility] Start: 1959 Urine microalbumin profile [facility] Start: 1958 Anxiety Screening Anxiety Screening [facility] Start: 1958 Depression Screening Depression Screening [facility] Start: 1958 Hepatitis B surface antibody level LDL CHOLESTEROL [facility] Start: 1950 3 comp foot exam completed DIABETIC FOOT EXAM [facility] Start: 1950 Diabetic foot examination Diabetic Foot Exam [facility] Start: 1950 Glaucoma screening Dilated Retinal Exam [facility] Start: 1950 Hepatitis B screening URINE ALBUMIN:CREATININE RATIO [facility] Start: 1950 Hepatitis C antibody, confirmatory test DILATED RETINAL EXAM [facility] Start: 1946 PNEUMOCOCCAL: 65+ (1 - PCV) PNEUMOCOCCAL: 65+ (1 - PCV) [facility] Start: 1945 Hemoglobin A1c/Hemoglobin.total in Blood HBA1C [facility] Basophil count [facility] Work Phone: Basophil percent differential count [facility] Work Phone: Calcium [Mass/volume ] in Serum or Plasma [facility] Work Phone: Carbon dioxide, tota l [Moles/volume] in Serum or Plasma [facility] Work Phone: Chloride [Moles/volume] in Serum or Plasma [facility] Work Phone: Creatinine and Glomerular filtration rate.predicted panel - Serum, Plasma or Blood [facility] Work Phone: Endometrial bx w/wo endocervix bx w/o dilat spx ENDOMETRIAL BIOPSY Procedures Routine Thickened endometrium Ordered: 10/24/2024 [facility] Comment on above: Ordered: 10/24/2024 Eosinophil percent differential count [facility] Work Phone: Eosinophils [#/volum e] in Blood [facility] Work Phone: Erythrocyte mean corpuscular volume determination [facility] Work Phone: Erythrocytes [#/volume] in Blood [facility] Work Phone: Glucose [Mass/volume ] in Serum or Plasma [facility] Work Phone: Hematocrit [Volume Fraction] of Blood [facility] Work Phone: Hemoglobin [Mass/volume] in Blood [facility] Work Phone: Hemoglobin distribution, width determination [facility] Work Phone: Hysteroscopy bx endometrium&/polypc w/wo d&c HYSTEROSCOPY W/ POLYPECTOMY W/ D&C Endometrial polyp [facility] Leukocytes [#/volume ] in Blood [facility] Work Phone: Lymphocyte count [facility] Work Phone: Lymphocyte percent differential count [facility] Work Phone: Mean corpuscular hemoglobin concentration determination [facility] Work Phone: Mean corpuscular hemoglobin determination [facility] Work Phone: Measurement of renal function [facility] Work Phone: Monocyte count [facility] Work Phone: Monocyte percent differential count [facility] Work Phone: Neutrophil count [facility] Work Phone: Neutrophil percent differential count [facility] Work Phone: Patient Education How [facility] Don [facility] Work Phone: Patient referral [facility] Work Phone: Pelvic examination w/anesthesia other than local EXAM UNDER ANESTHESIA PELVIC / VAGINAL Endometrial polyp [facility] Platelet mean volume determination [facility] Work Phone: Platelets [#/volume] in Blood [facility] Work Phone: Potassium [Moles/volume] in Serum or Plasma [facility] Work Phone: SARS-CoV-2 (COVID-19 ) N gene [Presence] in Respiratory specimen by HARMONY with probe detection [facility] Work Phone: Sodium [Moles/volume ] in Serum or Plasma [facility] Work Phone: SURGICAL PATHOLOGY SURGICAL PATH OLOGY Lab Routine Thickened endometrium 10/29/2024 10:40 AM EST [facility] Work Phone: Urea nitrogen [Mass/volume] in Serum or Plasma [facility] Work Phone: End: 12-13-2025 XR Chest PA and Lateral XR CHEST 2V FRONTAL/LAT Radiology Routine Pre-op evaluation Benign essential HTN Type 2 diabetes mellitus with other specified complication, without long-term current use of insulin (HCC) Paroxysmal atrial fibrillation (HCC) 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 Other hyperlipidemia 1 Occurrences starting 11/15/2024 until 12/13/2025 [facility] Work Phone: Comment on above: 1 Occurrences starting 11/15/2024 until 12/13/2025 XR Chest PA and Lateral XR CHEST 2V FRONTAL/LAT Radiology Routine Pre-op evaluation Benign essential HTN Type 2 diabetes mellitus with other specified complication, without long-term current use of insulin (HCC) Paroxysmal atrial fibrillation (HCC) 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 Other hyperlipidemia 11/15/2024 2:40 PM EST [facility] Immunizations Immunization Date Immunization Notes Care Provider Deyanira cabral 07-22-2024 influenza, high dose seasonal, preservative-free Galindo Aichholz RN TRANSITION Work Phone: [facility] 07-22-2024 influenza virus vacc ine, unspecified formulation Galindo Aichholz RN TRANSITION Work Phone: [facility] 07-25-2023 Influenza, High-dose Seasonal, Quadrivalent, Preservative Free Galindo Aichholz RN TRANSITION Work Phone: [facility] 07-25-2023 influenza virus vacc ine, unspecified formulation Galindo Aichholz RN TRANSITION Work Phone: [facility] 08-08-2022 Influenza, High-dose Seasonal, Quadrivalent, Preservative Free Galindo Aichholz RN TRANSITION Work Phone: [facility] 07-23-2021 COVID-19 mRNA, Comir libia (Pfizer) MD Atul Vera Work Phone: [facility] 07-16-2021 Influenza, Seasonal, Quadrivalent, Adjuvanted Galindo Aichholz RN TRANSITION Work Phone: [facility] 12-03-2020 COVID-19 mRNA, Comir libia (Pfizer) MD Atul Vera Work Phone: [facility] 11-11-2020 COVID-19 mRNA, Comir libia (Pfizer) MD Atul Vera Work Phone: [facility] 06-06-2020 influenza, injectabl e, quadrivalent, preservative free Galindo Aichholz RN TRANSITION Work Phone: [facility] 07-18-2019 Seasonal, quadrivale nt, recombinant, injectable influenza vaccine, preservative free Galindo Aichholz RN TRANSITION Work Phone: [facility] 07-25-2018 Seasonal trivalent influenza vaccine, adjuvanted, preservative free Galindo Aichholz RN TRANSITION Work Phone: [facility] 07-28-2017 influenza, high dose seasonal, preservative-free Galindo Aichholz RN TRANSITION Work Phone: [facility] 07-26-2016 pneumococcal polysaccharide vaccine, 23 valent Galindo Aichholz RN TRANSITION Work Phone: [facility] 03-23-2015 pneumococcal conjuga te vaccine, 13 valent Galindo Aichholz RN TRANSITION Work Phone: [facility] Payers Date Payer Category Payer Private Health Insurance [id number] 2022 Private Health Insurance [id number] 2022 Self-pay [id number] 2005 Medicare MEDICARE MEDICAR E A AND B [id number] 2005-Present [phone] [address] [address] [place] [address] Medicare [id number] 2005 Medicare [id number] 1959 Medicare [id number] 1959 Unknown [id number] 1940 Unknown [id number] 2.16.840.1.085199.3.579.2. 593 1940 Unknown [id number] 2.16.840.1.347473.3.579.2. 593 1940 Unknown [id number] 2.16.840.1.718957.3.579.2. 593 1940 Unknown [id number] 2.16.840.1.806028.3.579.2. 593 1940 Unknown [id number] 2.16.840.1.210319.3.579.2. 593 1940 Unknown [id number] 2.16.840.1.476542.3.579.2. 593 1940 Unknown [id number] 2.16.840.1.316803.3.579.2. 1259 1940 Unknown [id number] 2.16.840.1.876829.3.579.2. 9 1940 Unknown [id number] 2.16.840.1.596803.3.579.2. 9 1940 Unknown [id number] 2.16.840.1.623783.3.579.2. 1258 1940 Unknown [id number] 2.16.840.1.344508.3.579.2. 1258 1940 Unknown [id number] 2.16.840.1.822583.3.579.2. 9 1940 Unknown [id number] 2.16.840.1.295833.3.579.2. 9 1940 Unknown [id number] 2.16.840.1.223855.3.579.2. 727 Unknown [id number] 2.16.840.1.899479.3.579.2. 531 Unknown [id number] 2.16.840.1.920890.3.579.2. 531 Unknown [id number] 2.16.840.1.872491.3.579.2. 531 Unknown [id number] 2.16.840.1.681010.3.579.2. 531 Unknown [id number] 2.16.840.1.232833.3.579.2. 531 Social History Date Type Detail Facility Tobacco smoking stat us PRIS Unknown if ever smoked [facility] Work Phone: Start: 1940 Sex Assigned At Female F [facility] Start: 03-09-2022 End: 02-15-2024 Tobacco smoking status PRIS Never smoked tobacco (finding) [facility] Start: 02-15-2024 End: 02-18-2025 Sex Assigned At [employer] Other Start: 05-17-2022 Tobacco smoking stat [facility] Tobacco smoking consumption unknown [facility] Start: 1940 Sex Assigned At Not on file C [facility] Start: 05-07-2022 End: 08-23-2022 Exposure to SARS-CoV-2 (event) Not sure [facility] Start: 02-15-2024 End: 10-24-2024 Tobacco use and exposure Smokeless tobacco non-user [facility] Start: 02-15-2024 End: 05-22-2025 Alcoholic beverage intake Lifetime non-drinker (finding) [facility] Start: 02-15-2024 End: 02-18-2025 History of Social function [facility] Start: 02-15-2024 Alcohol Comment coffee: 1-2 daily [facility] Has the [employer] Player, or water Apparent threatened to shut off services in your home in past 12Mo No [facility] (I/We) worried gifty er (my/our) food would run out before (I/we) got money to buy more. Never true [facility] In the past 12 month s, has lack of transportation kept you from medical appointments or from getting medications? No [facility] Start: 11-02-2024 Gender identity Identifies as female gender (finding) [facility] NEGATED: Highlighted rowStart: FLOR History of tobacco use Passive smoker [facility] Medical Equipment Procedure Code Equipment Code Equipment Origin al Text Equipment Identifier Dates [id number] Start: 12-03-2024 End: 12-03-2025 Goals Date Patient Goal Desired Activity /State Functional Status Date Assessment Result Facility 02-18-2025 Patient Health Questionnaire 2 item (PHQ-2) [Reported] [facility] 10-21-2024 Are you deaf, or do you have serious difficulty hearing No 10/21/2024 6:01 PM Izabel Longo, ELFEGO No [facility] 10-21-2024 Are you blind, or do you have serious difficulty seeing, even when wearing glasses No 10/21/2024 6:01 PM Izabel Longo, RN No [facility] 10-21-2024 Do you have serious difficulty walking or climbing stairs No 10/21/2024 6:01 PM Izabel Longo, ELFEGO No [facility] 10-21-2024 Do you have difficul ty dressing or bathing No 10/21/2024 6:01 PM Izabel Longo, ELFEGO No [facility] 10-21-2024 Because of a physica l, mental, or emotional condition, do you have difficulty doing errands alone such as visiting a physician's office or shopping No 10/21/2024 6:01 PM Izabel Longo, ELFEGO No [facility] 04-15-2022 Functional status Patient is 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 Baseline [facility] Work Phone: 03-28-2022 Functional status Patient is 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 Baseline [facility] Work Phone: 03-24-2022 Functional status Patient Not at Baseline [facility] Work Phone: [facility] Mental Status Date Assessment Result Facility 10-21-2024 Because of a physica l, mental, or emotional condition, do you have serious difficulty concentrating, remembering, or making decisions No 10/21/2024 6:01 PM Izabel Longo, ELFEGO No [facility] 04-15-2022 Cognitive function Cognitive Sta tus Patient at Baseline [facility] Work Phone: 03-28-2022 Cognitive function Cognitive Sta tus Patient at Baseline [facility] Work Phone: 03-24-2022 Cognitive function Cognitive Sta tus Patient Not at Baseline [facility] Work Phone: Clinical Notes 03-23-2022 to 05-22-2025 Galindo Miller NP - 05/22/2025 10:30 AM Jasen Miller NP - 05/22/2025 6:30 AM Jasen Miller NP - 05/22/2025 6:30 AM Jasen Miller NP - 05/22/2025 6:29 AM EDTPatient Instructions Note [...] being taken. 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 Hypertension This is a [...] no compliance problems. Hypertensive end-organ damage includes CAD/AR. There is no history of heart failure or PVD. SUBJECTIVE: MEDICATIONS: Current Outpatient Medications Medication Instructions Blood Glucose Monitoring Suppl (True Metrix Meter) w/Device kit USE DIRECTED bumetanide (BUMEX) 1 mg, Daily PRN cyanocobalamin (VITAMIN B-12) 1,000 mcg, Daily RT Drug [place] Unilet Lancets 30G mis use to test [...] blood sugar control documented in this encounter [facility] 05-22-2025 Instructions Galindo Miller NP - 05/22/2025 10:30 AM EDT Glipizide 5mg pill: cut the pill in half, and only take 2.5mg twice a day with meal (breakfast and supper time), if blood sugars are running over 150 consistently call me documented in this encounter [facility] 02-18-2025 History of Present illness Narrative Associated [...] year: yes for mental status changes Specialist: core maker helper, JANOA/Living Will: yes Concerns: Hypertension This is a [...] no compliance problems. Hypertensive end-organ damage includes CAD/AR. There is no history of heart failure. [...] being taken. 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 SUBJECTIVE: MEDICATIONS: Current Outpatient Medications Medication Instructions Blood Glucose Monitoring Suppl (True Metrix Meter) w/Device kit USE DIRECTED bumetanide (BUMEX) 1 mg, Oral, Daily PRN cyanocobalamin (VITAMIN B-12) 1,000 mcg, Oral, Daily RT Drug [place] Unilet Lancets [facility] use to test BLOOD SUGAR DAILY Eliquis [...] 2 diabetes mellitus with diabetic neuropathy, unspecified ([facility]) - Primary Close monitoring of feet for s/s wounds, callous, or infection Good blood sugar control Acute gastric ulcer without hemorrhage or perforation Relevant Medications pantoprazole (ProtoNix) 40 MG EC tablet Type 2 diabetes mellitus with diabetic peripheral angiopathy without gangrene ([facility]) Continue with risk factor modification and control [...] up yearly and prn Associated Problem(s): Hyperlipidemia ([facility]) On zetia and crestor Check labs yearly [...] blood sugar control documented in this encounter [facility] 02-18-2025 Instructions Galindo Miller NP - 02/18/2025 10:30 AM EDT No labs needed, documented in this encounter [facility] 01-17-2025 Instructions Dinora Carroll APRN.CNP - 01/17/2025 10:47 AM EDT Thank you for seeing me in clinic today. As we discussed, my recommendations are as follows: 1.Consult to general surgery If you have any questions about the above treatment plan, please do not hesitate to call the office or send me a Ongo message. documented in this encounter [facility] 01-17-2025 History and physical note Consultation requested [...] began experiencing abdominal pain. Initial evaluations at [facility] suggested the presence of multiple gallstones, with recommendations for cholecystectomy. However, subsequent evaluations by another physician at the same hospital contradicted this recommendation, stating that surgery was not necessary. After a week of hospitalization and multiple tests, no definitive cause for the abdominal pain was identified. Due to persistent severe pain, patient was taken to the [facility] Emergency Room, where further evaluations were conducted, including an endoscopy and various scans. A colonoscopy performed at [facility] revealed non-cancerous polyps, which were removed. During the evaluations at [facility], a scan indicated uterine thickening, leading to concerns about potential cancer. A family court justice at [facility] subsequently removed a polyp measuring 2 cm by 9 cm from the uterus and cervix. Following this procedure, patient's abdominal pain reportedly resolved. Patient has a known history of gallstones, with conflicting medical opinions on the necessity of cholecystectomy. One physician at [facility] recommended immediate surgery, stating the gallbladder was completely full of stones, while another physician at [facility] advised against it. Patient has also experienced [...] weight loss. This note was dictated using [employer] speech recognition software and may contain some errors that were a result of the program not accurately transcribing what was dictated. The patient consented to the use of [employer] software for draft documentation of the visit consistent with [facility] s Notice of Privacy Practices. Dinora Carroll APRN.LEXI [facility] 01-17-2025 History and physical note Consultation requested [...] began experiencing abdominal pain. Initial evaluations at [facility] suggested the presence of multiple gallstones, with recommendations for cholecystectomy. However, subsequent evaluations by another physician at the same hospital contradicted this recommendation, stating that surgery was not necessary. After a week of hospitalization and multiple tests, no definitive cause for the abdominal pain was identified. Due to persistent severe pain, patient was taken to the [facility] Emergency Room, where further evaluations were conducted, including an endoscopy and various scans. A colonoscopy performed at [facility] revealed non-cancerous polyps, which were removed. During the evaluations at [facility], a scan indicated uterine thickening, leading to concerns about potential cancer. A family court justice at [facility] subsequently removed a polyp measuring 2 cm by 9 cm from the uterus and cervix. Following this procedure, patient's abdominal pain reportedly resolved. Patient has a known history of gallstones, with conflicting medical opinions on the necessity of cholecystectomy. One physician at [facility] recommended immediate surgery, stating the gallbladder was completely full of stones, while another physician at [facility] advised against it. Patient has also experienced [...] weight loss. This note was dictated using [employer] speech recognition software and may contain some errors that were a result of the program not accurately transcribing what was dictated. The patient consented to the use of [employer] software for draft documentation of the visit consistent with [facility] s Notice of Privacy Practices. Dinora Carroll APRN.CNP documented in this encounter [facility] 12-17-2024 Note HNO ID: [id number] Author: LUCIANA GREEN DO Service: ? Author [...] 2. Postop restrictions reviewed. Luciana Green DO [facility] 12-17-2024 History of Present illness Narrative [...] 2. Postop restrictions reviewed. Luciana Green DO Sandstone Splitter offered: Patient declines. documented in this encounter [facility] 12-17-2024 Note HNO ID: [id number] Author: CARA YOUNG MA Service: ? Author Type: Technologist Development Type: Progress Notes Filed: 12/17/2024 12:51 Note Text: Sandstone Splitter offered: Patient declines. [facility] 12-06-2024 Note HNO ID: [id number] Author: MARGARETTE TRIANA APRN.M48 M60 ARMOR CREWMAN Service: ? Author Type: Nurse Cereal Maker Type: Anesthesia Procedure Notes Filed: 12/06/2024 08:19 Note Text: ANESTHESIOLOGY PROCEDURE NOTE PIV General Information Procedure Start Time/Medication Administration: 12/06/2024 8:00 AM Procedure End Time: 12/06/2024 8:00 AM Patient Location: OR Staffing M48 M60 ARMOR CREWMAN: Margarette Triana APRN.M48 M60 ARMOR CREWMAN Performed by: PACO Preparation Sterility Preparation: hand hygiene performed prior to procedure, surgical cap used, mask used, skin prep agent completely dried prior to procedure Site Prep: chlorhexidine Procedure Details Indication: need for IV access Needle Size/Type: 20 gauge angiocath Orientation: Right Location: Wrist Imaging Guidance Used: No SIGNATURE: Margarette Triana APRN.CRNA PATIENT NAME: Saeed Sarabia DATE: December 06, 2024 TIME: 8:19 AM CSN: [id number] [facility] 12-06-2024 Note HNO ID: [id number] Author: MARGARETTE TRIANA APRN.PACO Service: ? Author Type: Nurse Cereal Maker Type: Anesthesia Procedure Notes Filed: 12/06/2024 08:18 Note Text: ANESTHESIOLOGY PROCEDURE NOTE Airway General Information Procedure Start Time/Medication Administration: 12/06/2024 7:45 AM Procedure End Time: 12/06/2024 7:45 AM Patient location during procedure: OR Patient identity confirmed: arm band and patient Staffing M48 M60 ARMOR CREWMAN: Margarette Triana APRN.M48 M60 ARMOR CREWMAN Performed by: PACO Indications and Patient Condition Indications for airway management: anesthesia Preoxygenated: yes anesthesia circuit Patient position: sniffing Method: sleep Difficult Mask: No Final Airway Details Final airway type: endotracheal airway Final Endotracheal Airway: ETT Cuffed: yes Successful intubation technique: video laryngoscopy Devices used: Room Endotracheal tube insertion site: oral Blade size: #3 ETT size (mm): 7.0 Measured from: lips Measurement (cm): 21 Placement verified by: capnometry Cormack-Lehane Classification: grade I - full view of glottis Number of attempts at approach: 1 Airway not difficult Comments Atraumatic intubation. Dentition and lips remain the same as preop. SIGNATURE: Margarette Triana APRN.CRNA PATIENT NAME: Saeed Sarbaia DATE: December 06, 2024 TIME: 8:17 AM CSN: [id number] [facility] 12-03-2024 History of Present illness Narrative [...] blood sugar control documented in this encounter [facility] 12-03-2024 Instructions Galindo Miller NP - 12/03/2024 9:00 AM EST No med dose changes documented in this encounter [facility] 11-15-2024 Note HNO ID: [id number] Author: MAXINE KABA RT(R) Service: ? Author [...] PATIENT PRESENTS WITH AN IMPLANTABLE OR ATTACHED BREAKER ENGINEER: No RADIOLOGY DEPARTMENT: General X-ray: Exam(s) Completed: Chest X-Ray PERIPHERAL IV DATA: Not applicable SIGNED BY: RT Faith(R) November 15, 2024 2:41 PM [facility] 11-15-2024 History of Present illness Narrative [...] PATIENT PRESENTS WITH AN IMPLANTABLE OR ATTACHED BREAKER ENGINEER: No RADIOLOGY DEPARTMENT: General X-ray: Exam(s) Completed: Chest X-Ray PERIPHERAL IV DATA: Not applicable SIGNED BY: RT Faith(R) November 15, 2024 2:41 PM documented in this encounter [facility] 11-15-2024 Instructions Maxine Singh APRN.EXPANDED FUNCTION DENTAL ASSISTANT - 11/15/2024 2:13 PM EST PATIENT PREOPERATIVE INSTRUCTIONS Luciana Green DO has scheduled you for your procedure at this surgery center: [facility]: [phone] --[phone] [address]. Please check in on the 1st floor [...] Instructions:N/A If you are currently using a [id number] injectable or oral medication for diabetes or [...] NSAIDS as needed. STOP ELIQUIS 2 DAYS TN EOP Important Reminders: - If you use CPAP/BIPAP, bring the machine with you to the surgery center. - If you are prescribed inhalers for breathing, continue using them. If you are on dialysis, please check with your dialysis center or machine sewer to see if any adjustments need to [...] Procedures: - YOU MUST HAVE A RESPONSIBLE COMPUTER SYSTEMS DESIGN ANALYST TAKE YOU HOME. A SMALL BUSINESS CONSULTANT OR ORACLE DEVELOPER CANNOT BE MADE A RESPONSIBLE COMPUTER SYSTEMS DESIGN ANALYST. - We recommend that a responsible person [...] Advance Directive, please fax a copy to [phone] or email to for it to be [...] into your chart that day. Maxine Singh APRN.EXPANDED FUNCTION DENTAL ASSISTANT documented in this encounter [facility] 11-15-2024 History and physical note Images from the original note were not included. [facility] HISTORY AND PHYSICAL EXAMINATION SERVICE DATE: 11/14/2024 SERVICE TIME: 3:47 PM PRIMARY CARE PHYSICIAN: Galindo Miller, HOSPICE EXECUTIVE DIRECTOR, HOSPICE EXECUTIVE DIRECTOR Assessment Patient has the following medical conditions which may affect ashley-operative course: Atrial fibrillation (HCC) Assessment: takes Eliquis daily, will stop 2 days pre op,currently stable Benign essential HTN Assessment: takes Lisinopril,Metoprolol,stable BP 147/56 taken at [facility] visit 11/15/24 CAD (coronary artery disease) Assessment: had LAD stent placed 2005 followed per Screen Door Maker Dr. Roberson DM type 2 (diabetes mellitus, type 2) (HCC) Assessment: takes Metformin,Glipizide currently stable Glucose Date Value Ref Range Status 10/20/2024 135 (H) 74 - 99 mg/dL Final Comment: The [place] Diabetes Association (ADA) provides guidance for cutoff [...] Standards of Medical Care in Diabetes 2016, [place] Diabetes Association. Diabetes Care. 2016.39(Suppl 1). HLD [...] large neck Non-male patient STOP-Bang Score: 1 [id number] Score: Age: >=75 Sex: female CHF history: No Hypertension history: Yes Stroke/TIA/thromboembolism history: No Vascular disease history: No Diabetes history: Yes [id number] Score: 5 ARISCAT Score: Age: >80 Preoperative [...] at this time: cardiology (cardiac clearance in psychiatric of 11/07/[address] Jose Roberson). Planned [...] fevers. Neurological: No history of TIA's, stroke, EXPANDED FUNCTION DENTAL ASSISTANT tumor, impaired sensorium, hemiplegia, paraplegia or quadraplegia. [...] > 1 time per night or hematuria. ELECTRONICS TESTER: Negative for abnormal vaginal bleeding, abnormal vaginal [...] 413 QTC Calculation (Bazett) 465 Calculated P [place] 97 Calculated R [place] -42 Calculated T [place] 100 Impression Sinus rhythm Atrial premature complex Borderline short TN interval Left bundle branch block Abnormal ECG No Stemi Confirmed by MITESH ABARCA, JASON ([id number]) on 10/16/2024 4:13:30 PM Recent Results (from the past 22930 hour(s)) ECHO Collection Time: 03/29/22 3:52 PM [...] 14, 2024 TIME: 4:02 PM PAGER/CONTACT #: [facility] 11-15-2024 History and physical note Images from the original note were not included. [facility] Pre[facility]esthesia [facility]ation Clinic HISTORY AND PHYSICAL EXAMINATION SERVICE DATE: 11/14/2024 SERVICE TIME: 3:47 PM PRIMARY CARE PHYSICIAN: Galindo Miller, HOSPICE EXECUTIVE DIRECTOR, HOSPICE EXECUTIVE DIRECTOR Assessment Patient has the following medical conditions which may affect ashley-operative course: Atrial fibrillation (HCC) Assessment: takes Eliquis daily, will stop 2 days pre op,currently stable Benign essential HTN Assessment: takes Lisinopril,Metoprolol,stable BP 147/56 taken at [facility] visit 11/15/24 CAD (coronary artery disease) Assessment: had LAD stent placed 2005 followed per Screen Door Maker Dr. Roberson DM type 2 (diabetes mellitus, type 2) (HCC) Assessment: takes Metformin,Glipizide currently stable Glucose Date Value Ref Range Status 10/20/2024 135 (H) 74 - 99 mg/dL Final Comment: The [place] Diabetes Association (ADA) provides guidance for cutoff [...] Standards of Medical Care in Diabetes 2016, [place] Diabetes Association. Diabetes Care. 2016.39(Suppl 1). HLD [...] large neck Non-male patient STOP-Bang Score: 1 [id number] Score: Age: >=75 Sex: female CHF history: No Hypertension history: Yes Stroke/TIA/thromboembolism history: No Vascular disease history: No Diabetes history: Yes [id number] Score: 5 ARISCAT Score: Age: >80 Preoperative [...] fevers. Neurological: No history of TIA's, stroke, EXPANDED FUNCTION DENTAL ASSISTANT tumor, impaired sensorium, hemiplegia, paraplegia or quadraplegia. [...] > 1 time per night or hematuria. ELECTRONICS TESTER: Negative for abnormal vaginal bleeding, abnormal vaginal [...] 413 QTC Calculation (Bazett) 465 Calculated P [place] 97 Calculated R [place] -42 Calculated T [place] 100 Impression Sinus rhythm Atrial premature complex Borderline short TN interval Left bundle branch block Abnormal ECG No Stemi Confirmed by JASON SAGASTUME MD ([id number]) on 10/16/2024 4:13:30 PM Recent Results (from the past 27566 hour(s)) ECHO Collection Time: 03/29/22 3:52 PM [...] PM PAGER/CONTACT #: documented in this encounter [facility] 11-13-2024 Note Patient: Saeed lanier Procedure Summary Date: 11/13/24 Room / Location: [facility] Anesthesia Start: 1039 Anesthesia Stop: 1144 Procedure: [...] per anesthesia protocol. No notable events documented. [facility] 11-13-2024 Note H&P reviewed. The ariane hollis [...] understanding of this and agreed to proceed. [facility] 11-13-2024 Note Patient: Saeed lanier Procedure Summary Date: 11/13/24 Room / Location: [facility] Anesthesia Start: 1038 Anesthesia Stop: Procedure: DIAGNOSTIC COLONOSCOPY Diagnosis: Abdominal pain, unspecified site Scheduled Providers: Bradford Davis MD; ROB Dumont; Alexis Arango MD Responsible Provider: Alexis Arango MD Anesthesia Type: MAC ASA Status: 4 Anesthesia Post [facility] Patient Monitor: direct observation Transport: uneventful Patient condition is: stable [facility] 11-13-2024 Note Patient: Saeed lanier Procedure Information Date/Time: 11/13/24 1130 Scheduled providers: Bradford Davis MD; ROB Dumont; Alexis Arango MD Procedure: DIAGNOSTIC COLONOSCOPY Location: [facility] Relevant Problems Cardio (+) Atrial fibrillation [...] Plan discussed with CAA. Additional Equipment Requests [facility] 11-07-2024 Telephone encounter Note Screen Door Maker office called to give update from office visit today, see CareEverywhere: Preoperative evaluation for colonoscopy and uterine D&C: She can proceed at low to intermediate cardiac risk. She can hold Eliquis 2 days prior to the procedures and resume Eliquis afterwards. Please advise [facility] 11-07-2024 Miscellaneous Notes [facility] office called to give update from office visit today, see CareEverywhere: Preoperative evaluation for colonoscopy and uterine D&C: She can proceed at low to intermediate cardiac risk. She can hold Eliquis 2 days prior to the procedures and resume Eliquis afterwards. Please advise documented in this encounter [facility] 11-07-2024 Note ID Cardiology - [facility] Subjective Saeed Sarabia is a 84 y.o. year old female patient being seen for 9 mo follow up CAD, CHF, PAF, and hypertension. She needs clearance for colonoscopy scheduled 11/13/2024 at [facility] with Dr. Davis. Patient also states she needs clearance for D&C at [facility] for uterine polyp. Denies chest pain, SOB, [...] Psychiatric: Mood and (more content not included)... [facility] 11-05-2024 Telephone encounter Note Call place to patient who was identified by name and . Reviewed/Discussed DO Manpreet message in detail. Pt verbalized understanding and agreed with the plan. No questions or other concerns at this time. Rehan Rashid RN [facility] 11-05-[address] to patient [...] that I was unable to reach her core maker helper and to have them tell the core maker helper to review my note and that she is going to have surgery and they will need recs. Epic wont let me message him due to him being at [place] but we can see things in care everywhere. Kathy, Luciana documented in this encounter [facility] 11-05-2024 Telephone encounter Note ----- Message from Luciana Green DO sent at 11/04/2024 4:08 PM EST ----- Regarding: chad Zelaya, Can you let this patient or her know that I was unable to reach her core maker helper and to have them tell the core maker helper to review my note and that she is going to have surgery and they will need recs. Epic wont let me message him due to him being at [place] but we can see things in care everywhere. Thanks, Luciana [facility] 11-04-2024 Note HNO ID: [id number] Author: LUCIANA GREEN, DO Service: ? Author [...] OB History No obstetric history on file. 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 All questions and concerns were addressed. [...] Medical Decision Making Level: 4 - Moderate [facility] 11-04-2024 History of Present illness Narrative [...] OB History No obstetric history on file. 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 All questions and concerns were addressed. [...] 4 - Moderate documented in this encounter [facility] 10-30-2024 Telephone encounter Note Spoke with patient's [...] recommended if clinical indicated. Gabriela Centeno MD [facility] 10-30-2024 Miscellaneous Notes Spoke with patient's Sammy [...] Gabriela Centeno MD documented in this encounter [facility] 10-30-2024 History of Present illness Narrative Images [...] Addressed This Visit Chronic atrial fibrillation, unspecified ([facility]) Continue eliquis therapy as b donna therapy No current symptoms, NSR today Continue w cardiology Benign essential HTN ([facility]) - Primary Please check blood pressure daily and record DASH diet Limit caffeine Take medication as directed Contact office if chest pain, pressure, dizziness, shortness of breath, swelling legs Recommend slow position changes Current meds: lisinopril, metoprolol, spironolactone Chronic diastolic (congestive) heart failure ([facility]) Continue with cardiology as well as diuretics, BONIFACIO and b donna Type 2 diabetes mellitus without complication ([facility]) Check blood sugars daily, notify if <70 [...] statin, A1c 6.1% on 08/20/2024 Other thrombophilia ([facility]) On eliquis Type 2 diabetes mellitus with diabetic neuropathy, unspecified ([facility]) Check blood sugars daily, notify if <70 [...] gangrene (CMS/HCC) Good glucose control, cont meds Abnormal ultrasound of endometrium Continue with ELECTRONICS TESTER Will be having biopsy Delirium due to another medical condition Reviewed neurology notes Low MOCA score as well Alert in office, answers questions appropriately Endocervical polyp Noted on ELECTRONICS TESTER exam and pelvic US Will get biopsy Endometrial polyp Seen on ELECTRONICS TESTER exam and had US, will be having [...] 08/20/2024 Associated Problem(s): Endometrial polyp Seen on ELECTRONICS TESTER exam and had US, will be having biopsy Associated Problem(s): Endocervical polyp Noted on ELECTRONICS TESTER exam and pelvic US Will get biopsy Associated Problem(s): Abnormal ultrasound of endometrium Continue with ELECTRONICS TESTER Will be having biopsy Associated Problem(s): Thickened [...] answers questions appropriately documented in this encounter [facility] 10-30-2024 Instructions Galindo Miller NP - 10/30/2024 10:00 AM EST Keep fu appts Ask cardiology for refill nitroglycerin Await biopsy endometrial for next steps documented in this encounter [facility] 10-29-2024 Note HNO ID: [id number] Author: BRENDON DORSEY MD Service: ? Author Type: Physician Type: Progress Notes Filed: 10/29/2024 15:53 Note Text: [facility] New Patient Evaluation Date: October 29, 2024 Patient Name: Saeed Sarabia [facility] was asked by to evaluate Saeed Sarabia. Our recommendations of care will be communicated by shared medical record. Reason for Evaluation/Chief complaint: memory concerns Accompanied by: SUBJECTIVE: HPI: Saeed Sarabia is a 84 year old Right handed female who presents to the [facility] for an initial evaluation. Patient has been [...] on file. N (more content not included)... [facility] 10-29-2024 History of Present illness Narrative Images from the original note were not included. [facility] New Patient Evaluation Date: October 29, 2024 Patient Name: Saeed Sarabia The [facility] was asked by to evaluate Saeed Sarabia. Our recommendations of care will be communicated by shared medical record. Reason for Evaluation/Chief complaint: memory concerns Accompanied by: SUBJECTIVE: HPI: Saeed Sarabia is a 84 year old Right handed female who presents to the [facility] for an initial evaluation. Patient has been [...] (MoCA) Version 8.1 Total Score: 06/07 Visuospatial/Executive: 15 Namin/3 Attention: 0/6 Language: 0/3 Abstraction: 1/2 Delayed Recall: 0/5 Orientation: 6 Education less than or equal to 12th [...] loss assessment. She was recently admitted to [facility] and then at [facility] for Altered mental status. During first visit [...] which included preparing to see the patient, [id number]-[id number] patient care, completing clinical documentation, obtaining and/or reviewing separately obtained history, performing a medically appropriate examination, counseling and educating the patient/family/caregiver, ordering medications, tests, or procedures, communicating with other HCPs (not separately reported), and independently interpreting results (not separately reported). Voice recognition software was used to compose this office note. Please excuse any unintended typographical errors. Brendon Dorsey MD Geriatric Medicine [facility] 10/29/2024 1:25 PM CC: Referring Physician: No referring provider defined for this encounter. PCP: Galindo Miller, HOSPICE EXECUTIVE DIRECTOR ([facility]) [address] [place] [address] Patient Entered Data: Patient-Reported No data to [...] data to display documented in this encounter [facility] 10-29-2024 Instructions Gabriela Centeno MD - 10/29/2024 [...] at any time. documented in this encounter [facility] 10-29-2024 Note HNO ID: [id number] Author: GABRIELA CENTENO MD Service: ? Author Type: Physician Type: Progress Notes Filed: 10/29/2024 20:34 Note Text: Saeed Sarabia is a 84 year old No obstetric history on file. here for SIS. Referred by: Luciana Green [id number] [address] Chief Complaint: Thickened endometrium Endometrial Biopsy: No [...] for procedure results. Gabriela Centeno MD Ultrasound [facility] 10-29-2024 History of Present illness Narrative Saeed Sarabia is a 84 year old No obstetric history on file. here for SIS. Referred by: Luciana Green [id number] [facility] [place] [address] [facility] [address] Chief Complaint: Thickened endometrium Endometrial Biopsy: No [...] Centeno MD Ultrasound documented in this encounter [facility] 10-24-2024 Note HNO ID: [id number] Author: LUCIANA GREEN DO Service: ? Author [...] OB History No obstetric history on file. 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 As applicable, any other physician, advance practice provider, medical student, or other health professional student that will be observing or involved in the sensitive examination for educational or training purposes was discussed with the Patient or Authorized Rn Home Health. The Patient or Authorized Rn Home Health has agreed to proceed with the sensitive [...] prior. Discussed this (more content not included)... [facility] 10-24-2024 History of Present illness Narrative [...] OB History No obstetric history on file. 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 As applicable, any other physician, advance practice provider, medical student, or other health professional student that will be observing or involved in the sensitive examination for educational or training purposes was discussed with the Patient or Authorized Rn Home Health. The Patient or Authorized Rn Home Health has agreed to proceed with the sensitive [...] which included preparing to see the patient, enpa-yf-bsiy patient care, completing clinical documentation, obtaining and/or reviewing separately obtained history, and counseling and educating the patient/family/caregiver. Sandstone Splitter offered: Patient declines. documented in this encounter [facility] 10-24-2024 Note HNO ID: [id number] Author: CARA YOUNG MA Service: ? Author Type: Technologist Development Type: Progress Notes Filed: 10/24/2024 15:36 Note Text: Sandstone Splitter offered: Patient declines. [facility] 10-21-2024 Note HNO ID: [id number] Author: ROLANDA CHAPARRO APRN.CNP Service: General Internal Medicine Author Type: Nurse Practitioner Type: Progress Notes Filed: 10/30/2024 07:40 Note Text: Documentation Query Please clarify the Type of encephalopathy Dementia with Encephalopathy, please specify type metabolic This document will become part of the patient's medical record. [facility] 10-21-2024 Note HNO ID: [id number] Author: KIANNA CHAVEZ APRN.HOSPICE EXECUTIVE DIRECTOR Service: Gastroenterology Author Type: Nurse Practitioner Type: Plan of Care Filed: 10/21/2024 14:32 Note Text: DEPARTMENT OF GASTROENTEROLOGY AND HEPATOLOGY [facility] INPATIENT VISIT DATE AND TIME 10/21/24 2:27 [...] and re-consult as needed. SIGNATURE: Kianna Chavez APRN.HOSPICE EXECUTIVE DIRECTOR PAGER/CONTACT #: [phone] [facility] 10-19-2024 Note HNO ID: [id number] Author: GISSELL TAPIA MD Service: Hospital Medicine Author Type: Physician Type: Progress Notes Filed: 10/19/2024 12:12 Note Text: ROU PROGRESS NOTE SERVICE DATE: 10/19/2024 SERVICE TIME: 11:40 AM Hospital Medicine/Primary Attending: Gissell Tpaia MD Subjective INTERVAL HPI: per pts -pt with hallucinations , has had hallucinations while at [place] seeing bugs crawling on the wall She has not been driving for 2.5 yrs due to the foot drop , recently failed the BMV testing for vision as she could not follow the commands Per pt has been confused since sep 17 2024 which is new for her , was admitted in [place] , had some improvement for 4-5 days [...] (POA: Yes) Patient had recent admission to [facility] on 09/17/2024 with concern for cholecystitis and [...] October 19, 2024 TIME: 11:40 AM etx [id number] [facility] 10-19-2024 Note HNO ID: [id number] Author: SUDHIR SANTOS LISW Service: Care Management Author Type: Wire Stitcher Type: Care Mgt Progress Note Filed: 10/19/2024 10:19 Note Text: CARE MANAGEMENT PROGRESS NOTE SERVICE DATE: 10/19/2024 SERVICE TIME: 10:18 AM LOS: 1 day Post-Acute Discharge Planning Patient Goal(s): General wellness, Be able to go home [place] of Choice Explained: [place] of Choice Given: No Reason Not Given: [...] DATE: October 19, 2024 TIME: 10:18 AM [facility] 10-18-2024 Note HNO ID: [id number] Author: DAWIT DORMAN MD Service: Hospital Medicine [...] AND Plan: -Patient had recent admission to [facility] on 09/17/2024 with concern for cholecystitis and [...] discussed with: Pr (more content not included)... [facility] 10-18-2024 Note HNO ID: [id number] Author: HAL ALVAREZ MD Service: Neurology General [...] Neuro to sign off. Please page the [facility] [place] [phone] if any further questions or concerns. Hal Alvarez MD PGY-4 [facility] 10-17-2024 Note HNO ID: [id number] Author: ATUL MARTIN DO Service: General Internal Medicine Author Type: Physician Type: Plan of Care Filed: 10/17/2024 15:04 Note Text: The patient's right foot is swollen, red, hot and painful. An ultra sound of the right lower extremity was negative for DVT. Most likely developing a cellulitis of the right foot. No tinea pedis seen on exam. Initiate therapy with Ancef. [facility] 10-17-2024 Note HNO ID: [id number] Author: BRITNEY CHOUDHURY RN Service: Care Management Author Type: Registered Nurse Type: Care Mgt Initial Assessment Filed: 10/17/2024 09:26 Note Text: CARE MANAGEMENT: ASSESSMENT AND DISCHARGE PLAN SERVICE DATE: October 17, 2024 SERVICE TIME: 9:20 AM PCP: Galindo Miller CNP, HOSPICE EXECUTIVE DIRECTOR Primary Contact: Extended Emergency Contact Information Primary Emergency Contact: Sammy Sarabia Mobile Relation: Spouse Admission Status: Observation Insurance Provider: MEDICARE A AND B Discharge Planning requested by: Per Department Practice Potential Transition Plans Home Advance Directives Current Advance Directive: Health Care Power of Soil Checker In Chart: No Admin Prog Coord Attempted to Assist with AD Completion: Yes [...] d/c needs. HCPOA paperwok on file within [facility] and verified to be current as of date/time of this note: No Legal Next of Kin Hierarchy per [place] Revised Code: Legal Spouse- Sammy Sarabia [phone] Majority of Adult Children (consensus if possible) Parents Majority of Adult Siblings (consensus if possible) Nearest Blood Relative reports patient has HCPOA forms at home. Instructed that he can bring forms in to file. SIGNATURE: Britney Choudhury RN PATIENT NAME: Saeed Sarabia DATE: October 17, 2024 TIME: 9:19 AM [facility] 10-17-2024 Note HNO ID: [id number] Author: ATUL MARTIN DO Service: General Internal [...] This patient was recently discharged from the [facility] where she was evaluated for RLQ abdominal [...] also a reason for her hospitalization at [facility]. Per her she seems to zone out [...] Patient and Family/Significant Other: SIGNATURE: Atul Martin, DATE: October 17, 2024 TIME: 9:01 AM [facility] 10-16-2024 Note SARS-COV-2 (AGENT OF COVID-19) RNA: Not detected INFLUENZA A RNA: Not detected INFLUENZA B RNA: Not detected RESPIRATORY SYNCYTIAL VIRUS (RSV) RNA: Not detected [facility] Comment on above: Performed By: #### 9 [id number] ####[facility] [id number] [address] 10-16-2024 Note HNO ID: [id number] Author: BRIANA SCHWARZ PA-C Service: ? Author Type: Physician Music Internship Type: Progress Notes Filed: 10/16/2024 12:57 Note Text: [facility] October 16, 2024 Saeed Sarabia 1940 Patient presents with: Abdominal Pain: X6 wks on and off, change in mental status x3 days Was recently treated for uti getting better then abd pain and admitted to [facility] and then transferred to [facility] and admitted for a week with gall [...] possible risks. Report called Briana Schwarz PA-C [facility] 10-16-2024 History of Present illness Narrative Images from the original note were not included. [facility] October 16, 2024 Saeed Sarabia 1940 Patient presents with: Abdominal Pain: X6 wks on and off, change in mental status x3 days Was recently treated for uti getting better then abd pain and admitted to [facility] and then transferred to [place] and admitted for a week with gall [...] to ER due to the limitations of [facility] testing capabilities. The patient verbalized understanding and denies questions. Patient transported to Emergency Department by who refused transport Abd exam with lower abd pain no guarding no masses no rebound. The patient refused transfer to ER by ambulance. The patient was accompanied by and states that they feel safe to self transport. Advised of possible risks. Report called Briana Schwarz PA-C [facility] documented in this encounter [facility] 10-10-2024 History of Present illness Narrative Associated [...] office if worsens documented in this encounter [facility] 09-30-2024 History of Present illness Narrative Associated [...] to confusion, ultimately she was evaluated in [facility] ER, had CT scan head/abd/pelvis-see report and labs and transferred to [facility] for evaluation for gallbladder w cholelithiasis She [...] List Items Addressed This Visit Atrial fibrillation ([facility]) Continue eliquis therapy as b donna therapy No current symptoms Continue w cardiology Benign essential HTN ([facility]) Please check blood pressure daily and record DASH diet Limit caffeine Take medication as directed Contact office if chest pain, pressure, dizziness, shortness of breath, swelling legs Recommend slow position changes Current meds: lisinopril, metoprolol, spironolactone Unspecified diastolic (congestive) heart failure ([facility]) Continue with cardiology as well as diuretics, BONIFACIO and b donna Type 2 diabetes mellitus without complication ([facility]) Check blood sugars daily, notify if <70 [...] 2 diabetes mellitus with diabetic neuropathy, unspecified ([facility]) Check blood sugars daily, notify if <70 [...] on 08/20/2024 Acute cholecystitis Was transferred to [facility] for this, no surgery as of yet Will need to review notes Acute metabolic encephalopathy - Primary Was part of diagnosis when admitted to [facility] for gallballer resolved Thickened endometrium Noted on [...] Associated Problem(s): Acute cholecystitis Was transferred to [facility] for this, no surgery as of yet [...] Was part of diagnosis when admitted to [facility] for gallballer resolved documented in this encounter [facility] 09-30-2024 Instructions Galindo Miller NP - 09/30/2024 10:30 AM EST Keep appts with GI and Cardiology I will call first week of October to see what we want to do in regards to the thickening of the uterine wall documented in this encounter [facility] 09-21-2024 Note Hospital Medicine Discharge Summary Final Discharge Diagnosis: Suprapubic abdominal pain Metabolic encephalopathy Gastric ulcers Esophagitis, LA grade A Cholelithiasis Afib HTN T2DM CHF Admission Diagnosis: Acute cholecystitis [K81.0] Cholecystitis [K81.9] Hospital course: 83yoF who was admitted from [place] to [facility] on 09/17 for concern for cholecystitis. Patient was seen at [facility] ED for abdominal pain and AMS. CT head was unremarkable but CT Abd showed signs concerning for cholecystitis with the presence of cholelithiasis. She was transferred to [facility] with General Surgery evaluation. HIDA was negative [...] Medications These medications were sent to [facility] [place], [place] - [facility] [place] [address] [place] [address] [place] [address], [facility] [address] pantoprazole 40 mg EC tablet Saeed is [...] in this inte (more content not included)... [facility] 09-21-2024 Note Followed up with theodore sung and family to discuss her discharge plan. At this time they continue to decline home healthcare and SNF placement but are agreeable to following up with therapies as an outpatient . [facility] 09-21-2024 Note Physical Therapy Physical Therapy Treatment [...] chair alarm activated Assessment/Plan PT Assessment PT Assessment/E LEARNING COORDINATOR Summary: pt claudia therapy well, pt could [...] ADLs and tasks. (RESOLVED) 09/19/24 10/03/24 09/21/24 [facility] 09-20-2024 Note Patient: Saeed lanier Procedure Summary Date: 09/20/24 Room / Location: [facility] Main Operating Room Anesthesia Start: 742 Anesthesia [...] no known notable events for this encounter. 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 2 Toiletin (more content not included)... [facility] 09-20-2024 Note Gastroenterology Latrell n of Care [...] We will arrange for outpatient repeat EGD. [facility] 09-20-2024 Note Occupational Therapy Name: Saeed Sarabia Date of : 1940 Today's Date: 09/20/24 Pt is unable to be seen for therapy at this time secondary to patient off the floor at this time for EGD per RN . Will check back and complete therapy session as appropriate. Check No Charge Time attempted: 0840A [facility] 09-20-2024 Note Hospital Medicine Daily Progress Note - 09/20/2024 8:14 AM; Room: 4184/4184-01 Admission: 09/17/2024 7:02 PM; Length of stay: 3 days THE HOSPITALIST TEAM PREFERS TO USE Germin8 FOR NON-URGENT COMMUNICATION 7AM-7PM. IF I DO NOT RESPOND WITHIN 20 MINUTES OR URGENT MATTERS, PLEASE CALL THROUGH THE DRUG SAFETY ASSOCIATE. FROM 7PM-7AM, PLEASE PAGE [phone](COVR). Code Status: Full Code Barriers to Discharge: [...] 22 -- 18 15 ALT U/L 12 11 ALK PHOS U/L 44 -- 49 43 BILIRUBIN TOTAL mg/dL 0.5 -- 0.5 0.5 LIPASE U/L -- -- -- 27 Results from last 7 days Lab Units 09/19/24 2109 09/19/24 1728 09/19/24 1215 09/19/24 0742 09/18/249 09/18/24 1803 POCT GLUCOSE mg/dL 140* 146* 198* 151* 154* 211* Historical Values: (Includes values prior to this admission) Lab Results Component Value Date TSH 0.04 (L) 09/18/2024 FREET4 1.38 09/18/2024 No results found for: [id number] , IRON , TIBC , C3 , C4 , AUTUMN , CANCA , ASO , PSA , CEA , CA125 , CA199 , AFP , CA153 Imaging EGD Table formatting fr (more content not included)... [facility] 09-20-2024 Note Patient: Saeed lanier Procedure Information Date/Time: 09/20/24 0800 Scheduled providers: Shelly Ricks MD; ROB Dumont; Dania Sandoval MD Procedure: EGD Location: [facility] Main Operating Room Relevant Problems Cardio (+) [...] Plan discussed with ROB. Additional Equipment Requests [facility] 09-19-2024 Note Patient and family a re declining home healthcare and SNF. No discharge needs at this time. [facility] 09-19-2024 Note Attestation signed by Nitin Carroll [...] changes as necessary to ensure accurate documentation. [facility] General Surgery DAILY PROGRESS NOTE Subjective Saeed [...] Results from last 7 days Lab Units 09/19/2425 09/18/24 0720 09/17/241945 SODIUM mmol/L 137 138 [...] CAT [facility]is [facility] Pharm Narrative: [facility] [...] purposes Ryan Rodríguez MD PGY-3 Surgery Resident [facility] 09-19-2024 Note Attestation signed by Cara Vogt PT at 09/19/2024 3:25 PM This feature writer present and provided 1:1 supervision, direction [...] is a 83 y.o. female presenting from [facility] with c/o abdominal pain and AMS x4 days. Per facility report, [place] did not have a surgery bed available, so pt will be getting surgery at [facility]. Pt was diagnosed with cholelithiasis and finished [...] 3 Help fro (more content not included)... [facility] 09-19-2024 Note Hospital Medicine Daily Progress Note - 09/19/2024 8:17 AM; Room: 4184/4184- Admission: 09/17/2024 7:02 PM; Length of stay: 2 days THE HOSPITALIST TEAM PREFERS TO USE [employer] CHAT FOR NON-URGENT COMMUNICATION 7AM-7PM. IF I DO NOT RESPOND WITHIN 20 MINUTES OR URGENT MATTERS, PLEASE CALL THROUGH THE DRUG SAFETY ASSOCIATE. FROM 7PM-7AM, PLEASE PAGE [phone](COVR). Code Status: Full Code Barriers to Discharge: [...] FREET4 1.38 09/18/2024 No results found for: [id number] , IRON , TIBC , C3 , [...] Discharge Planning Expecte (more content not included)... [facility] 09-19-2024 Note Daily Case Managemen t Update [...] Consults (From admission, onward) Start Ordered 09/19/24 0812 Inpatient consult to Social Work Once Provider: [...] for OT? Answer: Evaluate and treat 09/17/242216 [facility] 09-19-2024 Note Attestation signed by Nitin Carroll [...] changes as necessary to ensure accurate documentation. [facility] General Surgery DAILY PROGRESS NOTE Subjective No [...] millicurie, intravenous, Once in imaging Imaging: [place] [facility] Narrative: [facility] [...] Salvador Alcazar MD General Surgery Resident, PGY-2 [facility] 09-18-2024 Note Physical Therapy Can cellation [...] pain medication and would like to rest. Exceptional Children Teacher relayed to RN, family's concern that patient [...] and initiate session Cara Vogt PT, MPT [facility] Acute Rehabilitation [facility] 09-18-2024 Note Hospital Medicine Daily Progress Note - 09/18/2024 8:44 AM; Room: [address] [place] [address] Admission: 09/17/2024 7:02 PM; Length of stay: 1 days THE HOSPITALIST TEAM PREFERS TO USE [employer] That CHAT FOR NON-URGENT COMMUNICATION 7AM-7PM. IF I DO NOT RESPOND WITHIN 20 MINUTES OR URGENT MATTERS, PLEASE CALL THROUGH THE DRUG SAFETY ASSOCIATE. FROM 7PM-7AM, PLEASE PAGE [phone](COVR). Code Status: Full Code Barriers to Discharge: [...] are doing nothing. Patient herself is having NICLOE, abdominal pain, and periodic nausea Physical Exam [...] , FREET4 , CORTISOL , FEV1 , AHV1YTG , DLCO , RVSP , HDL , LDL No results found for: [id number] , IRON , TIBC , C3 , C4 , AUTUMN , CANCA , ASO , PSA , CEA , CA125 , CA199 , AFP , CA153 Imaging CT transfer of outside films This order has been auto-finalized and does not contain a result. Discharge Planning Expected Discharge Disposition: Home or Self Care (01) (pending PT/OT) OT Discharge Recommendations: snf facility placement (vs return home with 24 hour supervision and Home OT) Signed Kayleigh Rivera MD [facility] Medicine 09/18/2024 8:44 AM [facility] 09-18-2024 Note Occupational Therapy Occupational Therapy Evaluation [...] pt agreeable. Time In: 0755 Time Out: 08 General Subjective: Pt pleasant, cooperative, confused, questionable [...] Level of Function Prior Function Level of [place]: Independent with ADLs and functional transfers, Independent [...] 1: To Transf (more content not included)... [facility] 09-18-2024 Note Physical Therapy Evaluation--Cancellation Patient Name: Saeed Sarabia Today's Date: 09/18/2024 Admit Date: 09/17/2024 Patient admitted w/ abdominal pain. CT scan at OSH indicated possible cholelithiasis. Patient transferred for surgical consult. Patient is currently NPO. Exceptional Children Teacher anticipates patient to have change in mobility status if surgery is performed. Will await surgery consult and evaluate when appropriate. History of present illness Patient is a 83 y.o. female presents from [facility] w/ c/o abdominal pain and AMS x [address] [place] performed CT scan of abdomen that found acute vs chronic cholecystitis and cholelithiasis. Transferred to [facility] for sx. Recent UTI Past Medical History DM, HLD, HTN, gallstones, a-fib, HF, CAD, back sx, foot drop, inability to ambulate Current Diagnoses Acute cholecystitis/nephrolithiasis Cara Vogt PT, MPT [facility] Acute Rehabilitation [facility] 09-18-2024 Note Attestation signed by Nitin Carroll [...] changes as necessary to ensure accurate documentation. [facility] General Surgery DAILY PROGRESS NOTE Subjective No [...] from last 7 days Lab Units 09/18/24 0709/17/241946 WBC AUTO 10*3/uL 6.54 7.10 HEMOGLOBIN g/dL 12.3 12.9 HEMATOCRIT % 39.1 39.0 PLATELETS AUTO 10*3/uL 284 301 Results from last 7 days Lab Units 09/18/2471909/17/241945 SODIUM mmol/L 138 136 POTASSIUM mmol/L 4.0 [...] Alem Tatum MD General Surgery Resident, PGY-1 [facility] 09-17-2024 Note Hospital Medicine History and Physical 09/17/2024 10:18 PM THE HOSPITALIST TEAM PREFERS TO USE [employer] FOR NON-URGENT COMMUNICATION 7AM-7PM. IF I DO NOT RESPOND WITHIN 20 MINUTES OR URGENT MATTERS, PLEASE CALL THROUGH THE DRUG SAFETY ASSOCIATE. FROM 7PM-7AM, PLEASE PAGE [phone](COVR). Chief Complaint Chief Complaint Patient presents with Abdominal Pain Transferred from [facility]; will be getting surgery at [facility] Altered Mental Status History of Present Illness Saeed Sarabia is an 83 y.o. female who came from [facility] emergency room with Abdominal pain diagnosed with cholelithiasis and acute cholecystitis. Patient is also confused. Past medical history significant for; diabetes type 2, hypertension, CAD with stents, HLD, atrial fibrillation on Eliquis, history of lumbar stenosis and lower back pain, history of foot drop and inability to ambulate. Patient was transferred from ER at [facility] to [facility] for evaluation and treatment of abdominal pain. [...] of maximal intensity. Prior to transfer from [facility] CT scan of the head [...] with ambulation). Psychiatric/Be (more content not included)... [facility] 09-17-2024 Note Relevant Hx: CT scan completed at [facility] on 09/17/24 indicated cholecystitis and cholelithiasis Today's Plan: Discussed with Dr. Lombardi, not clear that her abdominal pain is due to acute cholecystitis as lipase, bilirubin, WBC are all WNL and physical exam findings do not correlate well with cholecystitis. Will have CT imaging of abdomen transferred from [facility] and order HIDA scan to further evaluate, as well as obtain ionized calcium, magnesium, and phosphorus labs. Recommend medicine admit and NPO status while waiting for HIDA scan. No associated orders from this encounter found during lookback period of 72 hours. [facility] 08-20-2024 History of Present illness Narrative Images from the original note were not included. lisamarkus Sarabia is a 83 y.o. female presents [...] compliance problems. There is no history of CAD/AR, CVA or retinopathy. SUBJECTIVE: MEDICATIONS: Current Outpatient [...] Left lower leg: Edema present. Comments: Trace-1+ RLCheco, niko JACK Uses a walker to walk Skin: General: [...] Orders CBC and differential Benign essential HTN ([facility]) Please check blood pressure daily and record- call if higher than 150/90 DASH diet Limit caffeine Take medication as directed Contact office if chest pain, pressure, dizziness, shortness of breath, swelling legs Recommend slow position changes I do recommend keeping at current dose of meds, with her age concern would be over possible increase in dizziness and possible fall Coronary arteriosclerosis ([facility]) Cont statin, b donna Unspecified diastolic (congestive) heart failure ([facility]) Continue with cardiology as well as diuretics, BONIFACIO and b donna Type 2 diabetes mellitus without complication ([facility]) - Primary Check blood sugars daily, notify [...] device (Completed) Basic metabolic panel Other thrombophilia ([facility]) Continue with eliquis Relevant Orders CBC and differential Peripheral vascular disease, unspecified (CMS/HCC) Continue current [...] blood glucose control documented in this encounter [facility] 08-20-2024 Instructions Galindo Miller NP - 08/20/2024 9:20 AM EST Monitor blood pressure at home, if consistent higher than 140/90 let me know documented in this encounter [facility] 02-02-2024 Note ID Cardiology - [facility] Subjective Saeed Sarabia is a [...] the morning., Disp: (more content not included)... [facility] 09-07-2022 Miscellaneous Notes Images from the original note were not included. [facility] d/c note reviewed: Discharge summary uploaded to [employer]. documented in this encounter [facility] 08-23-2022 History of Present illness Narrative SPINE [...] 9:09 AM PAGER: documented in this encounter [facility] 08-10-2022 History of Present illness Narrative Patient [...] for its avalibilty documented in this encounter [facility] 07-29-2022 Miscellaneous Notes Paperwork uploaded via [employer]. Sent to Luis Adam for review and signature. Copies faxed to Tom[employer] @ [phone] and onbase. Dinora Fisher RN SURGERY security consultant Calling: Fax received from [facility] Dirk Villareal PT Is Patient Requesting Appointment?: No Is Patient Calling due to Pain?: No Is Patient Requesting Medication?: No General Concerns: Physical Therapy Recertification Note to be signed and returned by fax to [phone]. Patient of: Dr. Sears documented in this encounter [facility] 06-16-2022 Miscellaneous Notes Paperwork uploaded via [employer] and sent to Luis Adam for review and signature. Copies faxed to [facility] at [phone] per request and onbase. Dinora Fisher RN Form received: From (agency / facility / parent): [facility] salesperson automobiles (if given): none given Phone #: [phone] Fax # : [phone] Email: Information requested: Discharge Physician Orders (Radha) Patient of Dr. Sears documented in this encounter [facility] 05-26-2022 Miscellaneous Notes Forms uploaded via [employer]. Sent to Dr. Sears for review and signature. Copies faxed to [facility] at number provided and onbase. Dinora Fisher RN Form received: From (agency / facility / parent): [facility] salesperson [employer] (if given): none given Phone #: [phone] Fax # : [phone] Email: Information requested: Physician Orders (Radha) Patient of Dr. Sears documented in this encounter [facility] 05-17-2022 History of Present illness Narrative SPINE [...] Juice Sears MD documented in this encounter [facility] 05-12-2022 Miscellaneous Notes Forms uploaded via [employer]. Sent to Dr. Sears for review and signature. Copies faxed to [facility] at [phone] and onbase. Dinora Fisher RN Form received: From (agency / facility / parent): [facility] salesperson [employer] (if given): Phone #: [phone] Fax # : [phone] Email: Information requested: Physicians orders Patient of Dr. Sears Forwarded to nurse. documented in this encounter [facility] 05-06-2022 Miscellaneous Notes POC paperwork uploaded to [employer] and sent to Dr. Sears for review and signature. Copies faxed to [facility] at [phone] and onbase. Dinora Fisher RN SURGERY security consultant Calling: [facility] Is Patient Requesting Appointment?: No Is Patient Calling due to Pain?: No Is Patient Requesting Medication?: No General Concerns: Plan of Care 04/17/22 - 06/15/22 Patient of: Dr. Sears documented in this encounter [facility] 04-29-2022 Miscellaneous Notes Spoke to Mojgan from [facility] regarding plan of care - explained that Dr. Platt will not typically follow patients for extended recovery past the post surgical period. Saeed has a follow up appointment 05/17 - will discuss at this time if her home health plan of care needs to be transitioned to a different practitioner. Forms uploaded to [employer] and sent to Dr. Sears for review and signature. Copies faxed to [facility] [phone] and onbase. Dinora Fisher RN Form received: From (agency / facility / parent): [facility] salesperson [employer] (if given): Mojgan Phone #: [phone] Fax # : ATTN Mojgan [phone] Email: Information requested: Plan of care Patient of Dr. Sears documented in this encounter [facility] 04-22-2022 Miscellaneous Notes Forms received. Uploaded to [employer] and sent to Dr. Sears for review and signature. Copies sent to [facility] at fax [phone] and onbase. Dinora Fisher RN Form received: From (agency / facility / parent): [facility] salesperson automobiles (if given): Saeed Saad Sarabia Phone #: [phone] (home) Fax # : [phone] Email: Information requested: therapy evaluation and care plan Patient of Dr. sears documented in this encounter [facility] 04-20-2022 Miscellaneous Notes PT and home care orders faxed to listed contact and number below. Can fax orders to [phone] to Debbie Miller. Cris Leger RN at [facility] [phone], reports start of care for skilled nurse, [...] BLAYNE for review. Dinora Fisher RN SURGERY security consultant Calling: Debbie Miller RNdocument management analyst retail team member [facility] direct line Is Patient Requesting Appointment?: No Is Patient Calling due to Pain?: No Is Patient Requesting Medication?: No General Concerns: Requesting orders for home health PT and nurse to check on patient in the home. Patient of: Dr. Sears documented in this encounter [facility] 04-13-2022 Progress note Note Date/Time April 13, 2022 1:52pm [facility] [address] [place] [address] Physiatry(Rehab) Progress Note Signed Patient: Saeed Sarabia MR#: [id number] : 1940 Acct:[id number] Age/Sex: 81 / F Adm Date: 2 Loc: Room: 8C3097-4 Type : ADM IN Attending Dr: Kingston [...] lumbar decompression surgery. She initially presented to [facility] ER on 03/23/2022 with complaints [...] She has had an MRI performed at [place] with Dr. 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 She was scheduled to have a lumbar surgery, but it was cancelled. [facility] neurosurgery was consulted, as there was no neurosurg coverage at [facility] on the day of admission. She was accepted to [facility] and transferred non-emergently, since there was [...] mg 04/07/22 15:58 Bisacodyl 10 Mg Supp.Rect TN 04/07/23 15:57 DAILY PRN Constipation Bumetanide 0.5 [...] 15:58 Docusate Enema 283 Mg/5 Ml Enema TN 04/07/23 15:57 DAILY PRN Constipation Gabapentin 100 [...] mg DAILY LAUREN Administration Assessment/Plan <Brooklyn Swanson, CRAY FISHING HAND - Last Filed: 04/13/22 13:52> Assessment/Plan (1) [...] equipment to enhance the patient's a functional rastafari Ensure adequate nutrition and hydration Sleep: Reports no issues Pain: Reports Tylenol provides sufficient relief. Occasional neuropathic pains in the right lower leg, may increase gabapentin as needed. Discharge planning: Home with End of this week. I spent greater than 15 minutes for services, including saax-rb-nnfe encounter with the patient, discussion of the case, plan of care, and exam; and npueedz-rl-jtnc activities, such as reviewing pertinent senior information security consultant documentation, recent therapy notes, laboratory and radiology studies, and discussion of case with care team including physician, nursing, case loader operator, and therapists. More than 50 % of [...] chart, including current orders, allied health and senior information security consultant notes, labs/imaging and performed jacobs elements [...] <Electronically signed by Kingston Gao MD> 04/13/221 [facility] Work Phone: 1(969) 366-484307-06-2022 Progress note Author Kingston Gao [facility] April 13, 2022 10:22am Note Date/Time April 13, 2022 10:15 am [facility] [address] [place] [address] Physiatry(Rehab) Progress Note Signed Patient: Saeed Sarabia MR#: [id number] : 1940 Acct:[id number] Age/Sex: 81 / F Adm Date: 2 Loc: 5T Room: [address] [place] [address] Type : ADM IN Attending Dr: Kingston Gao MD Copies to: ~ Date of Service: 04/12/2022 Subjective Subjective Narrative: Ms. Sarabia is a 81 year old female with medical history of type 2 diabetes, A. fib anticoagulated with Eliquis, CAD, hypertension, hyperlipidemia presents to inpatient rehabilitation for strengthening s/p lumbar decompression surgery. She initially presented to [facility] ER on 03/23/2022 with complaints [...] She has had an MRI performed at [place] with Dr. 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 She was scheduled to have a lumbar surgery, but it was cancelled. [facility] neurosurgery was consulted, as there was no neurosurg coverage at [facility] on the day of admission. She was accepted to [facility] and transferred non-emergently, since there was [...] mg 04/07/22 15:58 Bisacodyl 10 Mg Supp.Rect TN 04/07/23 15:57 DAILY PRN Constipation Bumetanide 0.5 [...] 15:58 Docusate Enema 283 Mg/5 Ml Enema TN 04/07/23 15:57 DAILY PRN Constipation Gabapentin 100 mg 04/07/22 22:00 04/13/22 08:41 Gabapentin 100 Mg Capsule PO 04/07/23 21:59 100 mg TID LAUREN Administration Glipizide 5 mg 04/07/22 17:00 04/13/22 08:41 Glipizide 5 Mg Tablet PO 04/07/23 16:59 5 mg BID.WITH.MEALS ALUREN Administration Lactulose 30 gm 04/07/22 15:58 Lactulose [...] equipment to enhance the patient's a functional rastafari Ensure adequate nutrition and hydration Sleep: Reports no issues Pain: Reports Tylenol provides sufficient relief. Occasional neuropathic pains in the right lower leg, may increase gabapentin as needed. Discharge planning: Home with End of this week. Documented By: Kingston Gao MD 04/12/22 1012 Signed By: <Electronically signed by Kingston Gao MD> 04/13/22 1022 [facility] Work Phone: 1(563) 375-312907-01-2022 History and physical note Author Kingston Gao [facility] April 08, 2022 1:06pm Note Date/Time April 08, 2022 10:50 am [facility] [address] [place] [address] Physiatry (Rehab) H&P Signed Patient: Saeed Sarabia MR#: [id number] : 1940 Acct:[id number] Age/Sex: 81 / F Adm Date: 2 Loc: Room: [address] [place] [address] Type : ADM IN Attending Dr: Kingston Gao MD Copies to: OMID Walker MD Lisa J Aichholz, RN TRANSITION-C~ <Brooklyn Swanson APRN - Last Filed: 04/08/22 [...] lumbar decompression surgery. She initially presented to [facility] ER on 03/23/2022 with complaints [...] She has had an MRI performed at [place] with Dr. 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 She was scheduled to have a lumbar surgery, but it was cancelled. [facility] neurosurgery was consulted, as there was no neurosurg coverage at [facility] on the day of admission. She was accepted to [facility] and transferred non-emergently, since there was [...] 20 Mg Tablet) 20 mg PO DAILY [facility] Stop: 04/08/23 08:59 Last Admin: 04/08/22 09:48 Dose: 20 mg Documented by: Bisacodyl (Bisacodyl 10 Mg Supp.Rect) 10 mg TN DAILY PRN PRN Reason: Constipation Stop: 04/07/23 [...] Enema 283 Mg/5 Ml Enema) 283 mg TN DAILY PRN PRN Reason: Constipation Stop: 04/07/23 15:57 Ezetimibe (Ezetimibe 10 Mg Tablet) 10 mg PO DAILY [facility] Stop: 04/08/23 08:59 Last Admin: 04/08/22 09:48 Dose: 10 mg Documented by: Gabapentin (Gabapentin 100 Mg Capsule) 100 mg PO TID [facility] Stop: 04/07/23 21:59 Last Admin: 04/08/22 09:48 Dose: 100 mg Documented by: Glipizide (Glipizide 5 Mg Tablet) 5 mg PO BID.WITH.MEALS [facility] Stop: 04/07/23 16:59 Last Admin: 04/08/22 09:48 Dose: 5 mg Documented by: Heparin Sodium (Porcine) (Heparin 5,000 Unit/Ml Vial) 5,000 unit SUBCUT Q12HR [facility] Stop: 04/09/22 21:01 Last Admin: 04/08/22 09:49 [...] Tab.Er.24h) 100 mg PO DAILY [facility] Stop: 04/08/23 08:59 Last Admin: 04/08/22 09:48 [...] % (Auto) 61.2 Lymph % (Auto) 26.1 Pratt % (Auto) 9.4 Eos % (Auto) 2.7 Baso % (Auto) 0.6 Neut # (Auto) 4.7 Lymph # (Auto) 2.0 Pratt # (Auto) 0.7 Eos # (Auto) 0.2 [...] MPV Neut % (Auto) Lymph % (Auto) Pratt % (Auto) Eos % (Auto) Baso % (Auto) Neut # (Auto) Lymph # (Auto) Pratt # (Auto) Eos # (Auto) Baso # [...] 24 hour daily monitoring and intervention from [employer] Admin as well as other consulting physicians including internal medicine as well as 24 hour daily starch and prosize mixer nursing - for medical safe / optimal [...] equipment to enhance the patient's a functional rastafari Ensure adequate nutrition and hydration Sleep: Reports no issues Pain: Reports Tylenol provides sufficient relief. Occasional neuropathic pains in the right lower leg, may increase gabapentin as needed. Discharge planning: Home with in 7 to 10 days. I spent greater than 15 minutes for services, including mqbz-md-veno encounter with the patient, discussion of the case, plan of care, and exam; and uzgrmjk-vi-nxhm activities, such as reviewing pertinent senior information security consultant documentation, recent therapy notes, laboratory and radiology studies, and discussion of case with care team including physician, nursing, case loader operator, and therapists. More than 50 % of [...] chart, including current orders, allied health and senior information security consultant notes, labs/imaging and performed jacobs elements [...] equipment to enhance the patient's a functional rastafari Encourage deep breathing exercises and incentive spirometry RD evaluation Ensure adequate nutrition and hydration Discharge planning. Documented By: Brooklyn Swanson APRN 04/08/22 1 047 Signed By: <Electronically signed by Kingston Gao MD> 04/08/22 1306 [facility] Work Phone: 1(492) 742-389507-01-2022 Consult note Author Justyn Spann [facility] April 08, 2022 1:04pm Note Date/Time April 08, 2022 1:01p [facility] [address] [place] [address] Hospitalist Consult Note Signed Patient: Saeed Sarabia MR#: [id number] : 1940 Acct:[id number] Age/Sex: 81 / F Adm Date: 2 Loc: Room: [address] [place] [address] Type : ADM IN Attending Dr: Kingston Gao MD Copies to: MD Kingston Stauffer MD Lisa J Aichholz, RN TRANSITION-C~ HPI DATE OF CONSULTATION: 04/08/22 REQUESTING PROVIDER: Kingston Gao Consult Narrative HPI: Patient is an 81-year-old female, with known history of spinal stenosis, who underwent spinal surgical intervention at [facility]. She has presented to our facility on 05 April, complaining of severe pain in the right lower extremity, foot drop, which was attributed to her known spinal stenosis. Arrangements were made, and the patient was transferred to [facility] for surgical care. The procedure was [...] post spinal decompressive surgery for stenosis at [facility]. No complications. Further postoperative care per [...] mg 04/07/22 15:58 Bisacodyl 10 Mg Supp.Rect TN 04/07/23 15:57 DAILY PRN Constipation Bumetanide 0.5 [...] 15:58 Docusate Enema 283 Mg/5 Ml Enema TN 04/07/23 15:57 DAILY PRN Constipation Ezetimibe 10 [...] Tablet PO 04/08/23 08:59 12.5 mg DAILY ALUREN Administration Exam Physical Exam Vital Signs: Temp [...] % (Auto) 61.2, Lymph % (Auto) 26.1, Pratt % (Auto) 9.4, Eos % (Auto) 2.7, Baso% (Auto) 0.6, Neut # (Auto) 4.7, Lymph # (Auto) 2.0, Pratt # (Auto) 0.7, Eos # (Auto) 0.2, Baso # (Auto) 0.0, Nucleated RBC % (auto) 0.1 04/07/22 21:44: POC Glucose 161 04/07/22 17:16: POC Glucose 110 Documented By: Justyn Spann MD 04/08/22 1257 Signed By: <Electronically signed by Justyn Spann MD> 04/08/22 1304 [facility] Work Phone: 1(920) 556-857206-19-2022 Progress note Author Kieran Scott [facility] March 27, 2022 3:10pm Note Date/Time March 27, 2022 3:10 pm [facility] [address] [place] [address] Hospitalist Progress Note Signed Patient: Saeed Sarabia MR#: [id number] : 1940 Acct:[id number] Age/Sex: 81 / F Adm Date: 2 Loc: Room: [address] [place] [address] Type : ADM INOo Attending Dr: Kieran [...] is still waiting to be transferred to [facility]. We still did not hear any [...] Patient is waiting to be transferred to [facility]. We do not have any neurosurgical [...] plenty RBC. We will try to use [place] and repeat UA for today. Admission Assessment and Plan: Lumbar spinal stenosis/right foot drop Patient continues to have weakness in the right foot with numbness MRI lumbar spine from [facility] reviewed which showed L4-L5 disc desiccation, moderate diffuse disc bulge and ligamentum flavum hypertrophy and facet osteoarthropathy, severe central canal stenosis, moderate right and mild left foraminal stenosis, L5-S1 moderate to severe disc space narrowing with endplate sclerosis Patient has been accepted by neurosurgery at [facility] and is awaiting bed Family is upset that she does not have a bed available yet at [facility] and wants to go to [facility] if possible. Spoke to neurosurgery at [facility] who would like to see the [...] <Electronically signed by Kieran Scott MD> 03/27/22 1511 [facility] Work Phone: 1(831) 538-136606-18-2022 Progress note Author Kieran Scott [facility] March 26, 2022 3:44pm Note Date/Time March 26, 2022 3:37 pm [facility] [address] [place] [address] Hospitalist Progress Note Signed Patient: Saeed Sarabia MR#: [id number] : 1940 Acct:[id number] Age/Sex: 81 / F Adm Date: 2 Loc: Room: [address] [place] [address] Type : ADM INOo Attending Dr: Kieran [...] is still waiting to be transferred to [facility]. We still did not hear any [...] Patient is waiting to be transferred to [facility]. We do not have any neurosurgical [...] [facility] We will continue with current medical therapy and plan as given below. Admission Assessment and Plan: Lumbar spinal stenosis/right foot drop Patient continues to have weakness in the right foot with numbness MRI lumbar spine from [facility] reviewed which showed L4-L5 disc desiccation, moderate diffuse disc bulge and ligamentum flavum hypertrophy and facet osteoarthropathy, severe central canal stenosis, moderate right and mild left foraminal stenosis, L5-S1 moderate to severe disc space narrowing with endplate sclerosis Patient has been accepted by neurosurgery at [facility] and is awaiting bed Family is upset that she does not have a bed available yet at [facility] and wants to go to [facility] if possible. Spoke to neurosurgery at [facility] who would like to see the [...] signed by Kieran Scott MD> 03/26/22 1544 [facility] Work Phone: [phone]) 366-804506-17-2022 Progress note Author Rupert Anthony [facility] March 25, 2022 3:36pm Note Date/Time March 25, 2022 3:36 pm [facility] [address] [place] [address] Hospitalist Progress Note Signed Patient: Saeed Sarabia MR#: [id number] : 1940 Acct:[id number] Age/Sex: 81 / F Adm Date: 2 Loc: Room: [address] [place] [address] Type : ADM INOo Attending Dr: Rupert [...] Insuln.Pen SUBCUT 03/24/23 07:59 1 units TID.WM.HS [facility] Administration Protocol Insulin Detemir 5 units 03/24/22 08:00 03/25/22 08:44 Insulin Detemir 300 Units/3 Ml Insuln.Pen SUBCUT 03/24/23 07:59 5 units DAILY.WITH.BKFAST [facility] Administration Lisinopril 5 mg 03/24/22 09:00 03/25/22 08:43 Lisinopril 5 Mg Tablet PO 03/24/23 08:59 5 mg DAILY [facility] Administration Metoprolol Succinate 100 mg 03/24/22 09:00 03/25/22 08:44 Metoprolol Succinate 100 Mg Tab.Er.24h PO 03/24/23 08:59 100 mg DAILY [facility] Administration Ondansetron HCl 4 mg 03/24/22 14:01 03/24/22 14:05 Ondansetron 4 Mg/2 Ml Vial IV-PUSH 03/24/23 14:00 4 mg Q6H PRN Administration Nausea And Vomiting Sodium Chloride 0 ml 03/23/22 15:36 Sodium Chloride 0.9 % 10 Ml Syringe IV-PUSH 03/23/23 15:35 PRN PRN Flush Tizanidine HCl 2 mg 03/25/22 22:00 Tizanidine 4 Mg Tablet PO 03/25/23 21:59 [facility] A&P - Hospitalist Assessment/Plan (1) Lumbar spinal stenosis: (2) Foot drop, right: Plan Lumbar spinal stenosis/right foot drop Patient continues to have weakness in the right foot with numbness MRI lumbar spine from [facility] reviewed which showed L4-L5 disc desiccation, moderate diffuse disc bulge and ligamentum flavum hypertrophy and facet osteoarthropathy, severe central canal stenosis, moderate right and mild left foraminal stenosis, L5-S1 moderate to severe disc space narrowing with endplate sclerosis Patient has been accepted by neurosurgery at [facility] and is awaiting bed Family is upset that she does not have a bed available yet at [facility] and wants to go to [facility] if possible. Spoke to neurosurgery at [facility] who would like to see the [...] <Electronically signed by Rupert Anthony MD> 03/25/22 0560 [facility] Work Phone: [phone]) 617-392606-17-2022 Consult note Author Yvrose Crocker [facility] March 25, 2022 10:12am Note Date/Time March 24, 2022 9:58 am [facility] [address] [place] [address] Neurology Consult Note Signed with Lyric Patient: Saeed Sarabia MR#: [id number] : 1940 Acct:[id number] Age/Sex: 81 / F Adm Date: 2 Loc: Room: [address] [place] [address] Type : ADM INOo Attending Dr: Rupert Anthony MD Copies to: MD Yvrose Colin, ANP-C BLAKE Fisher~ ADDENDUM1 Patient still having discomfort in the right lower extremity described as burning type pain into her leg and groin. We will increase her gabapentin to 3 times a day 100 mg. We will also make her Zanaflex scheduled to set up as needed. Can consider steroid dosing. If the patient does not have a bed assignment at [facility] today we can contact [facility] or [facility] for other options. Patient and state understanding and are agreeable. Addendum Documented By: JH Crocker 03/25/22 1012 Addendum Signed By: <Electronically signed by JH Crocker> 03/25/22 1012 HPI Consult Date: 03/24/22 College Recruiter: BLAKE Green with Dr Astorga Reason for [...] MRI scan of her lumbar spine at [facility] recently which prompted the surgery. She denies [...] compared to the left CEREBELLAR EXAM: * Alsgcs-hq-wsmq and alternating movements are intact and normal in bilateral upper extremities * Zbsa-kt-nyrg and alternating movements are intact and normal in the left lower extremity. She is able to do abnc-lw-choz with the right lower extremity with some [...] Donny Wolf M.D.03/23/2022 8:03 PM Dictation Location: [place] [address] Knee X-Ray 03/23/22 19:20 IMPRESSION: Tricompartmental osteoarthritic changes are noted. There is also evidence suggesting underlying chondrocalcinosis. No acute bony injury. Impression dictated by: Donny Wolf M.D.03/23/2022 8:02 PM Dictation Location: [place] [address] Assessment/Plan (1) Lumbar spinal stenosis: Code(s): M48.061 [...] of her lumbar spinein February at the [facility] which is available for review. She was exceptedat the [facility] and we are awaiting a bed. 1. MRI of the lumbar spine from [facility] reviewed. Awaiting a bed assignment at [facility]. I will defer further work-up to [...] <Electronically signed by Colby Astorga DO> 03/24/22 7690 [facility] Work Phone: [phone]) 800-649206-16-2022 Progress note Author Rupert Anthony [facility] March 24, 2022 5:12pm Note Date/Time March 24, 2022 5:12 pm [facility] [address] [place], [place] [address] Progress Note Signed Patient: Saeed Sarabia MR#: [id number] : 1940 Acct:[id number] Age/Sex: 81 / F Adm Date: 2 Loc: Room: 3J5146-1 Type : ADM INOo Attending Dr: Rupert Anthony MD Copies to: ~ Date of Service: 03/24/2022 Progress Narrative Note PROGRESS NOTE Progress Note: Patient admitted last night for right foot drop. Patient has been accepted to [facility] by neurosurgery and is awaiting bed. Patient denies any pain in her right leg at this time. Continue current management. Neurology and neurosurgery has been consulted. Documented By: Rupert Anthony MD 03/24/221710 Signed By: <Electronically signed by Rupert Anthony MD> 03/24/221711 [facility] Work Phone: [phone]) 720-174806-16-2022 History and physical note Author Perlita Gautam [facility] March 24, 2022 4:44am Note Date/Time March 24, 2022 4:24 am [facility] [address] [place] [address] Hospitalist H&P Signed Patient: Saeed Sarabia MR#: [id number] : 1940 Acct:[id number] Age/Sex: 81 / F Adm Date: 2 Loc: Room: 4W7943-0 Type : ADM IN Attending Dr: Perlita [...] (3.60-5.00) 03/23/22 19:25 Hgb 14.3 g/dL (11.8-15.4) 03/23/22: Hct 43.4 % (34.0-46.4) 03/23/22: MCV 91.0 fl (80-100) 03/23/22: MCH 29.9 pg (24.7-34.3) 03/23/22: MCHC 32.9 g/dL (32.0-35.0) 03/23/22: RDW 13.8 % (11.9-15.3) 03/23/22: Plt Count 295 x10E3/uL (150-450) 03/23/22: MPV 7.8 fl (6.3-10.7) 03/23/22: Neut % (Auto) 49.2 % (.) 03/23/22 Lymph % (Auto) 38.7 % (.) 03/23/22 Pratt % (Auto) 9.2 % (.) 03/23/22 Eos % (Auto) 2.3 % (.) 03/23/22 Baso % (Auto) 0.6 % (.) 03/23/22 Neut # (Auto) 4.2 x10E3/uL (1.8-7.7) 03/23/22 Lymph # (Auto) 3.3 x10E3/uL (1.00-4.8) 03/23/22 Pratt # (Auto) 0.8 x10E3/uL (0.0-0.8) 03/23/22 Eos # (Auto) 0.2 x10E3/uL (0.0-0.45) 03/23/22 Baso # (Auto) 0.1 x10E3/uL (0.0-0.2) 03/23/22 Nucleated RBC % (auto) 0.0 % (0-0.5) 03/23/22 PT 15.7 Seconds (9.0-12.9) H 03/23/22: INR 1.4 03/23/22: APTT 32.2 Seconds (25.1-36.5) 06/15/22 19:25 PHA Creatinine Clear 46.80 03/23/22 19:25 [...] 1.1 03/23/22 19:25 Urine Color Yellow (Yellow) 03/23/22:45 Urine Appearance Clear (Clear) 03/23/22 19:45 Urine pH 7.5 (5.0-9.0) 03/23/22 19:45 Ur Specific Kenvir 1.017 (1.001-1.030) 03/23/22:45 Urine Protein Negative mg/dL (Negative) 03/23/22:45 Urine Glucose (UA) Normal mg/dL (Normal) 03/23/22 [...] ?ER physician spoke with Dr. Suarez at [facility] neurosurgery who accepted patient and is pending bed availability. According to ER physician conversationwith Dr. Cruz there was no concerns for Julian monsalve at this point. ?MRI from [facility] pending availability, showing L4-L5 severe stenosis with [...] the plan of care and confirmed the resident's/commander internal affairs/medical student's dictation/written note. Documented By: Sarai Singletary APRN 03/24/22 1594 Signed By: <Electronically signed by OMID Singletary> 03/24/22 0438 <Electronically signed by Perlita Braxton MD> 03/24/22 3813 [facility] Work Phone: [phone]) 857-682606-15-2022 Evaluation note* Encounter Date Diagnosis Assessment Notes Treatment Notes Treatment Clinical Notes Mar, Right foot drop (ICD-10 - M21.371) Patient was referred to the emergency room for emergency evaluation in anticipation of probably being transferred to a tertiary center. Mar, Spinal stenosis, lumbar region with neurogenic claudication (ICD-10 - M48.062) [employer] Other evaluation noteNo assessment information available [facility] Work Phone: evaluation note* Diagnosis Onset Date Resolution Status Foot drop, right acute Lumbar spinal stenosis acute [facility] Work Phone: evaluation note* Diagnosis Onset Date Resolution Status Foot drop, right acute Lumbar spinal stenosis acute Atrial fibrillation acute Diabetes acute Foot drop, right acute Hyperlipidemia acute Hypertension acute Impaired mobility and activities of daily living acute S/P lumbar laminectomy acute [facility] Work Phone: Evaluation note* Diagnosis Spinal stenosis of lumbar region, unspecified whether neurogenic claudication present- Primary [facility] Spinal stenosis of lumbar region, unspecified whether neurogenic claudication present- Primary Right leg weakness Other musculoskeletal symptoms referable to limbs [facility] Diagnosis Acquired talipes equinovalgus of right foot- Primary Foot drop, right foot [facility] Diagnosis Foot drop, right foot- Primary [facility] Diagnosis Encounter for subsequent annual [...] of insulin (CMS/HCC) [facility] Diagnosis Encounter for subsequent annual wellness visit (AWV) in Medicare patient- Primary Benign essential HTN (CMS/HCC) Chronic atrial fibrillation (HCC) (CMS/HCC) Atrial fibrillation Type 2 diabetes mellitus without complication, without long-term current use of insulin (CMS/HCC) Mixed hyperlipidemia (CMS/HCC) Mixed hyperlipidemia Abnormal thyroid blood test Type 2 diabetes mellitus without complications (CMS/HCC) documented in this encounter [facility]* Diagnosis Encounter for subsequent annual [...] Coronary atherosclerosis of unspecified type of vessel, [place] or graft Type 2 diabetes mellitus without complications (CMS/HCC) documented in this encounter [facility]* Diagnosis Encounter for subsequent annual [...] Coronary atherosclerosis of unspecified type of vessel, [place] or graft Type 2 diabetes mellitus without complications (CMS/HCC) UTI symptoms- Primary Vaginal yeast infection Candidiasis of vulva and vagina documented in this encounter [facility]* Diagnosis Encounter for subsequent annual wellness visit (AWV) in Medicare patient- Primary Benign essential HTN (CMS/HCC) Chronic atrial fibrillation (HCC) ([facility]/HCC) Atrial fibrillation Type 2 diabetes mellitus without complication, without long-term current use of insulin (CMS/HCC) Mixed hyperlipidemia ([facility]/HCC) Mixed hyperlipidemia Abnormal thyroid blood test Type 2 diabetes mellitus without complication, without long-term current use of insulin ([facility]/HCC)- Primary Other thrombophilia (CMS/HCC) Type 2 diabetes mellitus with diabetic neuropathy, unspecified (CMS/HCC) Peripheral vascular disease, unspecified ([facility]/HCC) Peripheral vascular disease, unspecified Unspecified diastolic (congestive) heart failure (CMS/HCC) Chronic atrial fibrillation (HCC) ([facility]/HCC) Atrial fibrillation Benign essential HTN (CMS/HCC) Coronary arteriosclerosis ([facility]/HCC) Coronary atherosclerosis of unspecified type of vessel, [place] or graft Type 2 diabetes mellitus without complications ([facility]) Hypernatremia- Primary Hyperosmolality and/or hypernatremia documented in this encounter [facility]* Diagnosis Encounter for subsequent annual wellness visit (AWV) in Medicare patient- Primary Benign essential HTN (CMS/HCC) Chronic atrial fibrillation (HCC) ([facility]/HCC) Atrial fibrillation Type 2 diabetes mellitus without complication, without long-term current use of insulin (CMS/HCC) Mixed hyperlipidemia ([facility]/HCC) Mixed hyperlipidemia Abnormal thyroid blood test Type 2 diabetes mellitus without complication, without long-term current use of insulin ([facility]/HCC)- Primary Other thrombophilia ([facility]/HCC) Type 2 diabetes mellitus with diabetic neuropathy, unspecified (CMS/HCC) Peripheral vascular disease, unspecified (CMS/HCC) Peripheral vascular disease, unspecified Unspecified diastolic (congestive) heart failure (CMS/HCC) Chronic atrial fibrillation (HCC) ([facility]/HCC) Atrial fibrillation Benign essential HTN (CMS/HCC) Coronary arteriosclerosis (CMS/HCC) Coronary atherosclerosis of unspecified type of vessel, [place] or graft Type 2 diabetes mellitus without complications ([facility]/HCC) Type 2 diabetes mellitus without complication, without long-term current use of insulin ([facility]/HCC)- Primary Acute metabolic encephalopathy Type 2 diabetes [...] perforation, or obstruction documented in this encounter [facility] note* Diagnosis Encounter for subsequent annual [...] Coronary atherosclerosis of unspecified type of vessel, [place] or graft Type 2 diabetes mellitus without [...] without complications (CMS/HCC) documented in this encounter [facility]* Diagnosis Encounter for subsequent annual wellness visit (AWV) in Medicare patient- Primary Benign essential HTN (CMS/HCC) Chronic atrial fibrillation (HCC) (CMS/HCC) Atrial fibrillation Type 2 diabetes mellitus without complication, without long-term current use of insulin (CMS/HCC) Mixed hyperlipidemia (CMS/HCC) Mixed hyperlipidemia Abnormal thyroid blood test Type 2 diabetes mellitus without complication, without long-term current use of insulin ([facility])- Primary Other thrombophilia ([facility]) Type 2 diabetes mellitus with diabetic neuropathy, unspecified ([facility]) Peripheral vascular disease, unspecified ([facility]) Peripheral vascular disease, unspecified Unspecified diastolic (congestive) heart failure ([facility]) Chronic atrial fibrillation (HCC) ([facility]) Atrial fibrillation Benign essential HTN ([facility]) Coronary arteriosclerosis ([facility]) Coronary atherosclerosis of unspecified type of vessel, [place] or graft Type 2 diabetes mellitus without complications ([facility]) Type 2 diabetes mellitus without complication, without long-term current use of insulin ([facility])- Primary Acute metabolic encephalopathy Type 2 diabetes mellitus with diabetic neuropathy, without long-term current use of insulin ([facility]) Chronic atrial fibrillation (HCC) ([facility]) Atrial fibrillation Benign essential HTN ([facility]) Chronic diastolic congestive heart failure ([facility]) Acute cholecystitis Thickened endometrium Nonspecific (abnormal) findings on radiological and other examination of genitourinary organs Acute gastric ulcer without hemorrhage or perforation Acute gastric ulcer without mention of hemorrhage, perforation, or obstruction Non-recurrent acute suppurative otitis media of right ear without spontaneous rupture of tympanic membrane- Primary Acute non-recurrent sinusitis of other sinus [facility]* Diagnosis Spinal stenosis- Primary Spinal stenosis, unspecified region other than cervical Atrial fibrillation, unspecified type (HCC) Diastolic heart failure, unspecified HF chronicity (HCC) Atherosclerosis of [place] coronary artery without angina pectoris, unspecified whether tak[place] or transplanted heart Right leg weakness Other musculoskeletal symptoms referable to limbs HLD (hyperlipidemia) Other and unspecified hyperlipidemia Foot drop, right foot Atrial fibrillation (HCC) Atrial fibrillation Benign essential HTN Essential hypertension, benign DM type 2 (diabetes mellitus, type 2) ([facility]) Type II or unspecified type diabetes mellitus without mention of complication, not stated as uncontrolled Constipation Unspecified constipation Confusion- Primary Unspecified psychosis Abdominal pain, unspecified abdominal location [facility] Diagnosis Atrial fibrillation, unspecified type (HCC) Diastolic heart failure, unspecified HF chronicity (HCC) Atherosclerosis of [place] coronary artery without angina pectoris, unspecified whether [place] or transplanted heart Right leg weakness Other [...] of genitourinary organs [facility]* Diagnosis Atrial fibrillation, unspecified type (HCC) Diastolic heart failure, unspecified HF chronicity (HCC) Atherosclerosis of [place] coronary artery without angina pectoris, unspecified whether [place] or transplanted heart Right leg weakness Other [...] Other B-complex deficiencies documented in this encounter [facility] note* Diagnosis Atrial fibrillation, unspecified type (HCC) Diastolic heart failure, unspecified HF chronicity (HCC) Atherosclerosis of [place] coronary artery without angina pectoris, unspecified whether [place] or transplanted heart Right leg weakness Other [...] of genitourinary organs [facility] Diagnosis Encounter for subsequent annual [...] Coronary atherosclerosis of unspecified type of vessel, [place] or graft Type 2 diabetes mellitus without [...] Other thrombophilia (CMS/HCC) documented in this encounter [facility]* Diagnosis Atrial fibrillation, unspecified type (HCC) Diastolic heart failure, unspecified HF chronicity (HCC) Atherosclerosis of [place] coronary artery without angina pectoris, unspecified whether [place] or transplanted heart Right leg weakness Other [...] well as surgical risks of DVT, PE, AR, . All questions and concerns were addressed. [...] - ELECTIVE (05/2020) [facility] Diagnosis Atrial fibrillation, unspecified type (HCC) Diastolic heart failure, unspecified HF chronicity (HCC) Atherosclerosis of [place] coronary artery without angina pectoris, unspecified whether tak[place] or transplanted heart Right leg weakness Other [...] (HCC) Atrial fibrillation 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 Other hyperlipidemia Endometrial polyp Polyp of corpus uteri * Assessment & Plan Note - Maxine Singh APRN.CNS - 11/15/2024 3:46 PM EST Associated Problem(s): HLD (hyperlipidemia) Assessment: takes Crestor, Zetia, stable * Assessment & Plan Note - Maxine Singh APRN.CNS - 11/15/2024 3:46 PM EST Associated Problem(s): DM type 2 (diabetes mellitus, type 2) ([facility]) Assessment: takes Metformin,Glipizide currently stable Glucose Date Value Ref Range Status 10/20/2024 135 (H) 74 - 99 mg/dL Final Comment: The [place] Diabetes Association (ADA) provides guidance for cutoff [...] Standards of Medical Care in Diabetes 2016, [place] Diabetes Association. Diabetes Care. 2016.39(Suppl 1). * Assessment & Plan Note - Maxine Singh APRN.CNS - 11/15/2024 3:45 PM EST Associated Problem(s): CAD (coronary artery disease) Assessment: had LAD stent placed 2006 followed per [employer] Dr. Roberson * Assessment & Plan Note [...] pre op,currently stable [facility] Diagnosis Atrial fibrillation, unspecified type (HCC) Diastolic heart failure, unspecified HF chronicity (HCC) Atherosclerosis of [place] coronary artery without angina pectoris, unspecified whether takotna or transplanted heart Right leg weakness Other [...] (HCC) Atrial fibrillation 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 Other hyperlipidemia Pre-op evaluation Preoperative examination, unspecified Benign essential HTN Essential hypertension, benign Type 2 diabetes mellitus with other specified complication, without long-term current use of insulin (HCC) Paroxysmal atrial fibrillation (HCC) Atrial fibrillation 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 Other hyperlipidemia Endometrial polyp Polyp of corpus uteri [facility]* Diagnosis Encounter for subsequent annual wellness [...] Coronary atherosclerosis of unspecified type of vessel, [place] or graft Type 2 diabetes mellitus without [...] perforation, or obstruction documented in this encounter [facility]* Diagnosis Encounter for subsequent annual [...] Coronary atherosclerosis of unspecified type of vessel, [place] or graft Type 2 diabetes mellitus without [...] of genitourinary organs documented in this encounter [facility]* Diagnosis Atrial fibrillation, unspecified type (HCC) Diastolic heart failure, unspecified HF chronicity (HCC) Atherosclerosis of [place] coronary artery without angina pectoris, unspecified whether [place] or transplanted heart Right leg weakness Other [...] (HCC) Atrial fibrillation 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 Other hyperlipidemia Postop check- Primary Follow-up examination, following unspecified surgery [facility] Diagnosis Atrial fibrillation, unspecified type (HCC) Diastolic heart failure, unspecified HF chronicity (HCC) Atherosclerosis of [place] coronary artery without angina pectoris, unspecified whether [place] or transplanted heart Right leg weakness Other [...] (HCC) Atrial fibrillation 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 Other hyperlipidemia Calculus of gallbladder without cholecystitis without obstruction- Primary Calculus of gallbladder without mention of cholecystitis or obstruction Unintentional weight loss Loss of [facility] Diagnosis Encounter for subsequent annual wellness visit (AWV) in Medicare patient- Primary Benign essential HTN (CMS/HCC) Chronic atrial fibrillation (HCC) (CMS/HCC) Atrial fibrillation Type 2 diabetes mellitus without complication, without long-term current use of insulin Mixed hyperlipidemia ([facility]) Mixed hyperlipidemia Abnormal thyroid blood test Type 2 diabetes mellitus without complication, without long-term current use of insulin- Primary Other thrombophilia Type 2 diabetes mellitus with diabetic neuropathy, unspecified ([facility]) Peripheral vascular disease, unspecified ([facility]) Peripheral vascular disease, unspecified Unspecified diastolic (congestive) heart failure ([facility]) Chronic atrial fibrillation (HCC) ([facility]) Atrial fibrillation Benign essential HTN ([facility]) Coronary arteriosclerosis ([facility]) Coronary atherosclerosis of unspecified type of vessel, [place] or graft Type 2 diabetes mellitus without complications Type 2 diabetes mellitus without complication, without long-term current use of insulin- Primary Acute metabolic encephalopathy Type 2 diabetes mellitus with diabetic neuropathy, without long-term current use of insulin ([facility]) Chronic atrial fibrillation (HCC) ([facility]) Atrial fibrillation Benign essential HTN ([facility]) Chronic diastolic congestive heart failure ([facility]) Acute cholecystitis Thickened endometrium Nonspecific (abnormal) findings [...] examination of genitourinary organs Benign essential HTN ([facility]/HCC)- Primary Type 2 diabetes mellitus with diabetic neuropathy, unspecified ([facility]) Type 2 diabetes mellitus with diabetic peripheral angiopathy without gangrene ([facility]) Chronic diastolic (congestive) heart failure Chronic atrial fibrillation, unspecified ([facility]) Delirium due to another medical condition Endocervical [...] neuropathy, without long-term current use of insulin ([facility]) Acute gastric ulcer without hemorrhage or perforation [...] Other B-complex deficiencies documented in this encounter [facility] HealthcareEvaluation note* Diagnosis Encounter for subsequent annual [...] Coronary atherosclerosis of unspecified type of vessel, [place] or graft Type 2 diabetes mellitus without [...] Coronary atherosclerosis of unspecified type of vessel, [place] or graft Type 2 diabetes mellitus without [...] History blood clot Hospitalization History See Above [employer] Other reason for referral (narrative)* Outpatient Procedure (Routine) - Authorized Specialty Diagnoses / Procedures Referred By Oscar macias Referred To Contact [facility] Diagnoses Thickened endometrium Procedures ENDOMETRIAL BIOPSY ENDOMETRIAL BX W/WO ENDOCERVIX BX W/[place] [address] [address] [facility] [address] [place] [id number] Referral ID Status Reason Start Date Expiration Date Visits Requested Visits Authorized [id number] Authorized Auto-Generat ed Referral 10/24/2024 10/24/2025 1 1 * Diagnostic Procedure Only (Routine) - Authorized Specialty Diagnoses / Procedures Referred By Oscar macias Referred To Contact [facility] Diagnoses Thickened endometrium Procedures SONOHYSTEROGRAPHY (SIS) US WHI SALINE INFUS SONOHYSTEROGRAPHY W/[place] [address] [place] [address] [facility] [address] [place] [address] Referral ID Status Reason Start Date Expiration Date Visits Requested Visits Authorized [id number] Authorized Auto-Generat ed Referral 10/24/2024 10/24/2025 1 1 [facility] Chief Complaint and Reason for Visit [...] Documents on File Type Date Recorded Patient Rn Home Health Expl anation Advance Directive(s) 03/29/2022 8:42 PM [...] ELFEGO Other Provider Active Cindy Buck , ELFEGO Other Provider Active Cyndee Aguirre MD Other Provider Active Shadi Chahal MD Other Provider Active Galindo Lorenz APRN Other Provider Active Ronobir Diallo , DO Other Provider Active Kieran Scott [...] MD Other Provider Active Debbie Avalos , RN TRANSITION-C Other Provider Active Saulo Dukes MD Other [...] Active Galindo Miller Primary Care Provider Active [employer] Advisory Services Manager Relationship Specialty Start Date End Date Mike Steiner MD PCP - General Family Medicine 08/09/23 Galindo Miller NP [address] [place] [address] Nurse Practitioner Family Medicine 08/09/23 [employer] Manager Relationship Specialty Start Date End Date Mike Steiner MD PCP - General Family Medicine 08/09/23 Galindo Miller NP [address] [place] [phone] Nurse Practitioner Family Medicine 08/09/23 Account[employer] Advisory Services Manager Relationship Specialty Start Date End Date Mike Steiner MD [address] [place] [address] PCP - General Family Medicine 08/20/24 Galindo Miller NP [address] [place] [address] Nurse Practitioner Family Medicine 08/09/23 [employer] Advisory Services Manager Relationship Specialty Start Date End Date Mike Steiner MD [address] [place] [address] PCP - General Family Medicine 08/20/24 Galindo Miller NP [address] [place] [address] Nurse Practitioner Family Medicine 08/09/23 Account[employer] Advisory Services Manager Relationship Specialty Start Date End Date Mike Steiner MD [address] [place] [address] PCP - General Family Medicine 08/20/24 Galindo Miller NP [address] [place] [address] Nurse Practitioner Family Medicine 08/09/23 Account[employer] Advisory Services Manager Relationship Specialty Start Date End Date Mike Steiner MD [address] [place] [address] PCP - General Family Medicine 08/20/24 Galindo Miller NP [address] [place] [address] Nurse Practitioner Family Medicine 08/09/23 Account[employer] Advisory Services Manager Relationship Specialty Start Date End Date Mike Steiner MD [address] [place] [address] PCP - General Family Medicine 08/20/24 Galindo Miller NP [address] [place] [address] Nurse Practitioner Family Medicine 08/09/23 Account[employer] Advisory Services Manager Relationship Specialty Start Date End Date Mike Steiner MD [address] [place] [address] PCP - General Family Medicine 08/20/24 Galindo Miller NP [address] [place] [address] Nurse Practitioner Family Medicine 08/09/23 Accounting Advisory Services Manager Relationship Specialty Start Date End Date Mike Steiner MD [address] [place] [address] PCP - General Family Medicine 08/20/24 Galindo Miller NP [address] [place] [address] Nurse Practitioner Family Medicine 08/09/23 Accounting Advisory Services Manager Relationship Specialty Start Date End Date Mike Steiner MD [address] [place] [address] PCP - General Family Medicine 08/20/24 Galindo Miller NP [address] [place] [address] Nurse Practitioner Family Medicine 08/09/23 Accounting Advisory Services Manager Relationship Specialty Start Date End Date Mike Steiner MD [address] [place] [address] PCP - General Family Medicine 08/20/24 Galindo Miller NP [address] [place] [address] Nurse Practitioner Family Medicine 08/09/23 Accounting Advisory Services Manager Relationship Specialty Start Date End Date Galindo Miller HOSPICE EXECUTIVE DIRECTOR [address] [place] [address] PCP - General Family Medicine 10/16/24 Account[employer] Advisory Services Manager Relationship Specialty Start Date End Date Mike Steiner MD [address] [place] [address] PCP - General Family Medicine 08/20/24 Galindo Miller NP [address] [place] [address] Nurse Practitioner Family Medicine 08/09/23 Accounting Advisory Services Manager Relationship Specialty Start Date End Date Galindo Miller HOSPICE EXECUTIVE DIRECTOR [address] [place] [address] PCP - General Family Medicine 10/16/24 Accounting Advisory Services Manager Relationship Specialty Start Date End Date Galindo Miller CNP [address] [place] [address] PCP - General Family Medicine 10/16/24 Accounting Advisory Services Manager Relationship Specialty Start Date End Date Galindo Miller, HOSPICE EXECUTIVE DIRECTOR [address] [place] [address] PCP - General Family Medicine 10/16/24 Account[employer] Advisory Services Manager Relationship Specialty Start Date End Date Mike Steiner MD [address] [place] [phone] PCP - General Family Medicine 08/20/24 Galindo Miller NP [address] [place] [address] Nurse Practitioner Family Medicine 08/09/23 Accounting Advisory Services Manager Relationship Specialty Start Date End Date Mike Steiner MD [address] [place] [phone] PCP - General Family Medicine 08/20/24 Galindo Miller NP [address] [place] [address] Nurse Practitioner Family Medicine 08/09/23 Accounting Advisory Services Manager Relationship Specialty Start Date End Date Mike Steiner MD [address] [place] [phone] PCP - General Family Medicine 08/20/24 Galindo Miller, RN TRANSITION [address] [place] [address] Nurse Practitioner Family Medicine 08/09/23 Accounting Advisory Services Manager Relationship Specialty Start Date End Date Galindo Miller CNP [address] [place] [address] PCP - General Family Medicine 10/16/24 Accounting Advisory Services Manager Relationship Specialty Start Date End Date Galindo Miller CNP [address] [place] [address] PCP - General Family Medicine 10/16/24 Accounting Advisory Services Manager Relationship Specialty Start Date End Date Galindo Miller CNP [address] [place] [address] PCP - General Family Medicine 10/16/24 Accounting Advisory Services Manager Relationship Specialty Start Date End Date Galindo Miller CNP [address] [place] [address] PCP - General Family Medicine 10/16/24 Accounting Advisory Services Manager Relationship Specialty Start Date End Date Galindo Miller HOSPICE EXECUTIVE DIRECTOR [address] [place] [address] PCP - General Family Medicine 10/16/24 Accounting Advisory Services Manager Relationship Specialty Start Date End Date Galindo Miller HOSPICE EXECUTIVE DIRECTOR [address] [place] [address] PCP - General Family Medicine 10/16/24 Accounting Advisory Services Manager Relationship Specialty Start Date End Date Galindo Miller HOSPICE EXECUTIVE DIRECTOR [address] [place] [address] PCP - General Family Medicine 10/16/24 Accounting Advisory Services Manager Relationship Specialty Start Date End Date Mike Steiner MD [address] [place] [address] PCP - General Family Medicine 08/20/24 Galindo Miller NP [address] [place] [address] Nurse Practitioner Family Medicine 08/09/23 Accounting Advisory Services Manager Relationship Specialty Start Date End Date Mike Steiner MD [address] [place] [address] PCP - General Family Medicine 08/20/24 Galindo Miller NP [address] [place] [address] Nurse Practitioner Family Medicine 08/09/23 Accounting Advisory Services Manager Relationship Specialty Start Date End Date Galindo Miller, HOSPICE EXECUTIVE DIRECTOR [address] [place] [address] PCP - General Family Medicine 10/16/24 Accounting Advisory Services Manager Relationship Specialty Start Date End Date Galindo Miller, HOSPICE EXECUTIVE DIRECTOR [address] [place] [address] PCP - General Family Medicine 10/16/24 Accounting Advisory Services Manager Relationship Specialty Start Date End Date Mike Steiner MD [address] [place] [address] PCP - General Family Medicine 08/20/24 Galindo Miller NP [address] [place] [address] Nurse Practitioner Family Medicine 08/09/23 Accounting Advisory Services Manager Relationship Specialty Start Date End Date Galindo Miller CNP [address] [place] [address] PCP - General Family Medicine 10/16/24 Accounting Advisory Services Manager Relationship Specialty Start Date End Date Mike Steiner MD [address] [place] [address] PCP - General Family Medicine 08/20/24 Galindo Miller NP [address] [place] [address] Nurse Practitioner Family Medicine 08/09/23 Accounting Advisory Services Manager Relationship Specialty Start Date End Date Mike Steiner MD [address] [place] [address] PCP - General Family Medicine 08/20/24 Galindo Miller NP [address] [place] [address] Nurse Practitioner Family Medicine 08/09/23 Accounting Advisory Services Manager Relationship Specialty Start Date End Date Mike Steiner MD [address] [place] [address] PCP - General Family Medicine 08/20/24 Galindo Miller NP [address] [place] [phone] Nurse Practitioner Family Medicine 08/09/23 Accounting Advisory Services Manager Relationship Specialty Start Date End Date Mike Steiner MD [address] [place] [address] PCP - General Family Medicine 08/20/24 Galindo Miller NP [address] [place] [address] Nurse Practitioner Family Medicine 08/09/23 Accounting Advisory Services Manager Relationship Specialty Start Date End Date Mike Steiner MD [address] [place] [address] PCP - General Family Medicine 08/20/24 Galidno Miller NP [address] [place] [address] Nurse Practitioner Family Medicine 08/09/23 Goals (unrecognized section and content) Goals may be documented in a n alternate sectionGoals may be documented in an alternate sectionGoals may be documented in an alternate sectionNo Information REASON FOR VISIT (unrecogniz ed section and content) Reason Comments Other home health orders r equested Reason Comments Forms [facility] ter Reason Comments Forms Reason Comments Other [facility] Plan of Ca re 04/17/22 - 06/15/22 Reason Comments General [facility] Reason Comments Post-Op Visit Reason Comments Forms Physician Orders (De irvin) - [facility] Reason Comments Forms Other Discharge Physician Orders Reason Comments Other Physical Therapy Rec ertification Note Reason Comments Received Outside Medical Records [facility] Reason Comments Med Refill Reason [...] Referred By Contac t Referred To Contact [facility] Diagnoses Thickened endometrium Procedures SONOHYSTEROGRAPHY (SIS) US WHI SALINE INFUS SONOHYSTEROGRAPHY W/[place] [address] [place] [address] [facility] [address] [place] [address] Referral ID Status Reason Start Date Expiration Date V isits Requested Visits Authorized [id number] Closed Auto-Generate d Referral 10/24/2024 10/24/2025 1 [...] section and content) DATE CREATED AUTHOR 04/06/2022 [facility] DATE CREATED AUTHOR AUTHOR'S ORGANIZ ATION 09/15/2022 [facility] DATE CREATED AUTHOR AUTHOR'S ORGANIZ ATION 11/12/2022 [facility] DATE CREATED AUTHOR AUTHOR'S ORGANIZ ATION 11/19/2024 [facility] DATE CREATED AUTHOR AUTHOR'S ORGANIZ ATION 12/10/2024 [facility] DATE CREATED AUTHOR AUTHOR'S ORGANIZ ATION 01/19/2025 [facility] DATE CREATED AUTHOR AUTHOR'S ORGANIZ ATION 05/24/2025 [facility] DATE CREATED AUTHOR AUTHOR'S ORGANIZ ATION 07/01/2025 [facility] Source Comments (unrecognize d section and content) In the event this informatio n is protected by the Federal Confidentiality of Alcohol and Drug Abuse Patient Records regulations: The Federal rules restrict any use of the information to criminally investigate or prosecute any alcohol or drug abuse patient.[facility] HospitalIn the event this information is protected by the Federal Confidentiality of Alcohol and Drug Abuse Patient Records regulations: The Federal rules restrict any use of the information to criminally investigate or prosecute any alcohol or drug abuse patient.[facility] HospitalIn the event this information is protected by the Federal Confidentiality of Alcohol and Drug Abuse Patient Records regulations: The Federal rules restrict any use of the information to criminally investigate or prosecute any alcohol or drug abuse patient.[facility] HospitalIn the event this information is protected by the Federal Confidentiality of Alcohol and Drug Abuse Patient Records regulations: The Federal rules restrict any use of the information to criminally investigate or prosecute any alcohol or drug abuse patient.[facility] HospitalIn the event this information is protected by the Federal Confidentiality of Alcohol and Drug Abuse Patient Records regulations: The Federal rules restrict any use of the information to criminally investigate or prosecute any alcohol or drug abuse patient.[facility] HospitalIn the event this information is protected by the Federal Confidentiality of Alcohol and Drug Abuse Patient Records regulations: The Federal rules restrict any use of the information to criminally investigate or prosecute any alcohol or drug abuse patient.[facility] HospitalIn the event this information is protected by the Federal Confidentiality of Alcohol and Drug Abuse Patient Records regulations: The Federal rules restrict any use of the information to criminally investigate or prosecute any alcohol or drug abuse patient.[facility] HospitalIn the event this information is protected by the Federal Confidentiality of Alcohol and Drug Abuse Patient Records regulations: The Federal rules restrict any use of the information to criminally investigate or prosecute any alcohol or drug abuse patient.[facility] HospitalIn the event this information is protected by the Federal Confidentiality of Alcohol and Drug Abuse Patient Records regulations: The Federal rules restrict any use of the information to criminally investigate or prosecute any alcohol or drug abuse patient.[facility] HospitalIn the event this information is protected by the Federal Confidentiality of Alcohol and Drug Abuse Patient Records regulations: The Federal rules restrict any use of the information to criminally investigate or prosecute any alcohol or drug abuse patient.[facility] HospitalIn the event this information is protected by the Federal Confidentiality of Alcohol and Drug Abuse Patient Records regulations: The Federal rules restrict any use of the information to criminally investigate or prosecute any alcohol or drug abuse patient.[facility] HospitalIn the event this information is protected by the Federal Confidentiality of Alcohol and Drug Abuse Patient Records regulations: The Federal rules restrict any use of the information to criminally investigate or prosecute any alcohol or drug abuse patient.[facility] HospitalIn the event this information is protected by the Federal Confidentiality of Alcohol and Drug Abuse Patient Records regulations: The Federal rules restrict any use of the information to criminally investigate or prosecute any alcohol or drug abuse patient.[facility] HospitalIn the event this information is protected by the Federal Confidentiality of Alcohol and Drug Abuse Patient Records regulations: The Federal rules restrict any use of the information to criminally investigate or prosecute any alcohol or drug abuse patient.[facility] HospitalIn the event this information is protected by the Federal Confidentiality of Alcohol and Drug Abuse Patient Records regulations: The Federal rules restrict any use of the information to criminally investigate or prosecute any alcohol or drug abuse patient.[facility] HospitalIn the event this information is protected by the Federal Confidentiality of Alcohol and Drug Abuse Patient Records regulations: The Federal rules restrict any use of the information to criminally investigate or prosecute any alcohol or drug abuse patient.[facility] HospitalIn the event this information is protected by the Federal Confidentiality of Alcohol and Drug Abuse Patient Records regulations: The Federal rules restrict any use of the information to criminally investigate or prosecute any alcohol or drug abuse patient.[facility] HospitalIn the event this information is protected by the Federal Confidentiality of Alcohol and Drug Abuse Patient Records regulations: The Federal rules restrict any use of the information to criminally investigate or prosecute any alcohol or drug abuse patient.[facility] HospitalIn the event this information is protected by the Federal Confidentiality of Alcohol and Drug Abuse Patient Records regulations: The Federal rules restrict any use of the information to criminally investigate or prosecute any alcohol or drug abuse patient.[facility] HospitalIn the event this information is protected by the Federal Confidentiality of Alcohol and Drug Abuse Patient Records regulations: The Federal rules restrict any use of the information to criminally investigate or prosecute any alcohol or drug abuse patient.[facility] HospitalIn the event this information is protected by the Federal Confidentiality of Alcohol and Drug Abuse Patient Records regulations: The Federal rules restrict any use of the information to criminally investigate or prosecute any alcohol or drug abuse patient.[facility] HospitalIn the event this information is protected by the Federal Confidentiality of Alcohol and Drug Abuse Patient Records regulations: The Federal rules restrict any use of the information to criminally investigate or prosecute any alcohol or drug abuse patient.[facility] HospitalIn the event this information is protected by the Federal Confidentiality of Alcohol and Drug Abuse Patient Records regulations: The Federal rules restrict any use of the information to criminally investigate or prosecute any alcohol or drug abuse patient.[facility] HospitalIn the event this information is protected by the Federal Confidentiality of Alcohol and Drug Abuse Patient Records regulations: The Federal rules restrict any use of the information to criminally investigate or prosecute any alcohol or drug abuse patient.[facility] HospitalIn the event this information is protected by the Federal Confidentiality of Alcohol and Drug Abuse Patient Records regulations: The Federal rules restrict any use of the information to criminally investigate or prosecute any alcohol or drug abuse patient.[facility] HospitalIn the event this information is protected by the Federal Confidentiality of Alcohol and Drug Abuse Patient Records regulations: The Federal rules restrict any use of the information to criminally investigate or prosecute any alcohol or drug abuse patient.[facility] HospitalIn the event this information is protected by the Federal Confidentiality of Alcohol and Drug Abuse Patient Records regulations: The Federal rules restrict any use of the information to criminally investigate or prosecute any alcohol or drug abuse patient.[facility] FOR RECORDS PERTAINING TO PATIENTS WHO [...] BE BASED ON THE PRIMARY CLINICAL RECORDS. [facility] [employer] [facility]. provides no warranty or guarantee of the accuracy or completeness of information in this document.
== END 2025-07-02 12:48 | disposition home or self-care (01) ==
LOC: RAD 12:50
PROVIDERS: PCP Nurse Practitioner; Visit Provider Nurse Practitioner
DX: N20.0 Calculus of kidney (principal)
CPT/HCPCS: 74018

== ENCOUNTER 2025-07-10 08:32 | Outpatient (OUT) | payer MEDICARE, SELFPAY ==
--- OUTSIDE RECORDS SUMMARY | 2025-07-07 09:58 | XMS_ITS ---
Author Name Auto Generated Organization [facility] Care Team Providers Care Orthopedic Physician Name Role Phone ANNELISE PIERCE Referring Unavailable EDMUNDO FOX Referring Unavailable JOSE KIDD Admitting Unavailable KAYLEIGH RIVERA Attending Unavailable MONI ROBERSON Attending Unavailable ANNELISE PIERCE Referring Unavailable KAYLEIGH RIVERA Referring Unavailable DANIA SANDOVAL Referring Unavailable SHELLY RICKS Attending Unavailable SHELIA NEWTON Referring Unavailable WALTER DAVIS Admitting Unavailable WALTER DAVIS Attending Unavailable NITIN ROBERTS Referring Unavailable AICHHOLZ, KIRSTIN Attending Unavailable AICHHOLZ, KIRSTIN Attending Unavailable AICHHOLZ, KIRSTIN Attending Unavailable AICHHOLZ, KIRSTIN Attending Unavailable AICHHOLZ, KIRSTIN Attending Unavailable AICHHOLZ, KIRSTIN Attending Unavailable AICHHOLZ, KIRSTIN Attending Unavailable BRENDON DORSEY Attending Unavailable AICHHOLZ, KIRSTIN CURTIS Primary Care Unavailable HIRZEL, LUCIANA M Referring Unavailable AICHHOLZ, KIRSTIN CURTIS Primary Care Unavailable HIRZEL, LUCIANA M Attending Unavailable AICHHOLZ, KIRSTIN CURTIS Primary Care Unavailable SELF Referring Unavailable FRANCIS CARROLL Attending Unavailable ROLANDA CHAPARRO Referring Unavailable AICHHOLZ, KIRSTIN CURTIS Primary Care Unavailable HIRZEL, LUCIANA M Attending Unavailable AICHHOLZ, KIRSTIN CURTIS Primary Care Unavailable MAXINE SINGH Referring Unavailable AICHHOLZ, KIRSTIN CURTIS Primary Care Unavailable HIRZEL, LUCIANA M Referring Unavailable AICHHOLZ, KIRSTIN CURTIS Primary Care Unavailable HIRZEL, LUCIANA M Attending Unavailable AICHHOLZ, KIRSTIN CURTIS Primary Care Unavailable MD CARI GROVE Attending Unav kevinable CAYLA EDWARD Attending Unavailable NED CRUZ Referring Unavailable AICHHOLZ, KIRSTIN CURTIS Primary Care Unavailable GLENROY MARTIN Admitting Unavailable AICHHOLZ, KIRSTIN CURTIS Primary Care Unavailable GIN THOMPSON Attending Unavailable CR IZAGUIRRE Unavailable HIRZEL, LUCIANA M Admitting Unavailable HIRZEL, LUCIANA M Attending Unavailable AICHHOLZ, KIRSTIN CURTIS Primary Care Unavailable PROBLEMS DATE TYPE CONDITION / CODE ATTENDING STATUS [facility] 10/29/2024 Active Endometrial poly p / N84.0(ICD-10) LUCIANA GREEN Active [facility] 11/14/2024 Active 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 / I25.10(ICD-10) NA Active [facility] 10/18/2024 Active Paroxysmal atria l fibrillation (HCC) / I48.0(ICD-10) NA Active [facility] 10/17/2024 Active Type 2 diabetes mellitus with other specified complication, without long-term current use of insulin (HCC) / E11.69(ICD-10) NA Active [facility] 03/29/2022 Active Benign essential HTN / I10(ICD-10) NA Active [facility] 03/29/2022 Active Other hyperlipid emia / E78.49(ICD-10) NA Active [facility] 11/15/2024 Active Pre-op evaluatio n / Z01.818(ICD-10) Active [facility] 11/13/2024 Admitting Diagnosis Unspecified abdominal pain / R10.9(ICD-10) WALTER DAVIS [facility] 09/17/2024 Admitting Diagnosis Paroxysmal atrial fibrillation / I48.0(ICD-10) ROBIN [facility] 11/07/2024 Admitting Diagnosis Atherosclerotic heart disease of [place] coronary artery without angina pectoris / I25.10(ICD-10) ROBIN [facility] 11/07/2024 Admitting Diagnosis Encounter for preprocedural cardiovascular examination / Z01.810(ICD-10) ROBIN [facility] 11/07/2024 Admitting Diagnosis Chronic diastolic (congestive) heart failure / I50.32(ICD-10) ROBIN [facility] 11/07/2024 Admitting Diagnosis Essential (primary) hypertension / I10(ICD-10) ROBIN [facility] 11/07/2024 Admitting Diagnosis Left bundle-branch block, unspecified / I44.7(ICD-10) ROBIN [facility] 10/29/2024 Active Thickened endome trium / R93.89(ICD-10) Active [facility] 10/21/2024 Active Lower abdominal pain / R10.30(ICD-10) JAY [facility] 10/16/2024 Active Altered mental status, unspecified altered mental status type / R41.82(ICD-10) [facility] Decreased appeti te / R63.0(ICD-10) [facility] Active Nephrolithiasis / N20.0(ICD-10) [facility] Active [facility] 10/16/2024 Active Biliary calculus of other site without obstruction / K80.80(ICD-10) [facility] 10/16/2024 Active Endometrial hyperplasia / N85.00(ICD-10) [facility] 10/16/2024 Active Abdominal pain, unspecified abdominal location / R10.9(ICD-10) NA Active [facility] 09/17/2024 Admitting Diagnosis Acute cholecystitis / K81.0(ICD-10) KAYLEIGH RIVERA Active [facility] 09/17/2024 Admitting Diagnosis Cholecystitis, unspecified / K81.9(ICD-10) KAYLEIGH RIVERA Active [facility] 09/17/2024 Admitting Diagnosis Epigastric pain / R10.13(ICD-10) KAYLEIGH RIVERA Active [facility] 09/17/2024 Admitting Diagnosis Acute gastric ulcer without hemorrhage or perforation / K25.3(ICD-10) KAYLEIGH RIVERA Active [facility] 09/17/2024 Admitting Diagnosis Weakness / R53.1(ICD-10) KAYLEIGH RIVERA Active [facility] PROCEDURES No Procedure Records Found RESULTS PATIENT EDUCATION Observed: 07/07/2025 10:29 AM Status: F Source: [facility] Patient Education Nephrology Dietary Guidelines to Help Prevent Kidney Stones Kidney stones are deposits of minerals and salts that form inside your kidneys. Your risk of developing kidney stones may be greater depending on your diet, your lifestyle, the medicines you take, and whether you have certain medical conditions. Most people can lower their risks of developing kidney stones by following these dietary guidelines. Your dietitian may give you more specific instructions depending on your overall health and the type of kidney stones you tend to develop. What are tips for following this plan? Reading food labels ??? Choose foods with no salt added or low-salt labels. Limit your salt (sodium) intake to less than 1,500 mg a day. ??? Choose foods with calcium for each meal and snack. Try to eat about 300 mg of calcium at each meal. Foods that contain 200?500 mg of calcium a serving include: ? 8 oz (237 mL) of milk, sgeqcpz-lggsoajmstnb-pyvaw milk, and calcium- fortifiedfruit juice. Calcium-fortified means that calcium has been added to these drinks. ? 8 oz (237 mL) of kefir, yogurt, and soy yogurt. ? 4 oz (114 g) of tofu. ? 1 oz (28 g) of cheese. ? 1 cup (150 g) of dried figs. ? 1 cup (91 g) of cooked broccoli. ? One 3 oz (85 g) can of sardines or mackerel. Most people need 1,000?1,500 mg of calcium a day. Talk to your dietitian about how much calcium is recommended for you. Shopping ??? Buy plenty of fresh fruits and vegetables. Most people do not need to avoid fruits and vegetables, even if these foods contain nutrients that may contribute to kidney stones. ??? When shopping for convenience foods, choose: ? Whole pieces of fruit. ? Pre-made salads with dressing on the side. ? Low-fat fruit and yogurt smoothies. ??? Avoid buying frozen meals or prepared deli foods. These can be high in sodium. ??? Look for foods with live cultures, such as yogurt and kefir. ??? Choose high-fiber grains, such as whole-wheat breads, oat bran, and wheat cereals. Cooking ??? Do not add salt to food when cooking. Place a salt shaker on the table and allow each person to add their own salt to taste. ??? Use vegetable protein, such as beans, textured vegetable protein (TVP), or tofu, instead of meat in pasta, casseroles, and soups. Meal planning ??? Eat less salt, if told by your dietitian. To do this: ? Avoid eating processed or pre-made food. ? Avoid eating fast food. ??? Eat less animal protein, including cheese, meat, poultry, or fish, if told by your dietitian. To do this: ? Limit the number of times you have meat, poultry, fish, or cheese each week. Eat a diet free of meat at least 2 days a week. ? Eat only one serving each day of meat, poultry, fish, or seafood. ? When you prepare animal proteins, cut pieces into small portion sizes. For most meat and fish, one serving is about the size of the palm of your hand. ??? Eat at least five servings of fresh fruits and vegetables each day. To do this: ? Keep fruits and vegetables on hand for snacks. ? Eat one piece of fruit or a handful of berries with breakfast. ? Have a salad and fruit at lunch. ? Have two kinds of vegetables at dinner. ??? You may be told to limit foods that are high in a substance called oxalate. These include: ? Spinach (cooked), rhubarb, beets, sweet potatoes, and [place] chard. ? Peanuts. ? Potato chips, malay fries, and baked potatoes with skin on. ? Nuts and nut products. ? Chocolate. ??? If you regularly take a diuretic medicine, make sure to eat at least 1 or 2 servings of fruits or vegetables that are high in potassium each day. These include: ? Avocado. ? Banana. ? [place], prune, carrot, or tomato juice. ? Baked potato. ? Cabbage. ? Beans and split peas. Lifestyle ??? Drink enough fluid to keep your urine pale yellow. This is the most important thing you can do. Spread your fluid intake throughout the day. ??? If you drink alcohol: ? Limit how much you have to: ? 0?1 drink a day for women who are not . ? 0?2 drinks a day for men. ? Know how much alcohol is in your drink. In the [place] one drink equals one 12 oz bottle of beer (355 mL), one 5 oz glass of wine (148 mL), or one 1? oz glass of hard liquor (44 mL). ??? Lose weight if told by your health care provider. Work with your dietitian to find an eating plan and weight loss strategies that work best for you. General information ??? Talk to your health care provider and dietitian about taking daily supplements. Depending on your health and the cause of your kidney stones, you may be told: ? Do not take high-dose supplements of vitamin C (1,000 mg a day or more). ? To take a calcium supplement. ? To take a daily probiotic supplement. ? To take other supplements such as magnesium, fish oil, or vitamin B6. ??? Take jrsg-eeq-jhxmyxc and prescription medicines only as told by your health care provider. These include supplements. What foods should I limit? Limit your intake of the following foods, or eat them as told by your dietitian. Vegetables Spinach. Rhubarb. Beets. Canned vegetables. Pickles. Olives. Baked potatoes with skin. Grains Wheat bran. Baked goods. Salted crackers. Cereals high in sugar. Meats and other proteins Nuts. Nut butters. Large portions of meat, poultry, or fish. Salted, precooked, or cured meats, such as sausages, meat loaves, and hot dogs. Dairy Cheeses. Beverages Regular soft drinks. Regular vegetable juice. Seasonings and condiments Seasoning blends with salt. Salad dressings. Soy sauce. Ketchup. Barbecue sauce. Other foods Canned soups. Canned pasta sauce. Casseroles. Pizza. Lasagna. Frozen meals. Potato chips. [place] fries. The items listed above may not be a complete list of foods and beverages you should limit. Contact a dietitian for more information. What foods should I avoid? Talk to your dietitian about specific foods you should avoid based on the type of kidney stones you have and your overall health. Fruits Grapefruit. The item listed above may not be a complete list of foods and beverages you should avoid. Contact a dietitian for more information. Summary ??? Kidney stones are deposits of minerals and salts that form inside your kidneys. ??? You can lower your risk of kidney stones by making changes to your diet. ??? The most important thing you can do is drink enough fluid. Drink enough fluid to keep your urine pale yellow. ??? Talk to your dietitian about how much calcium you should have each day, and eat less salt and animal protein as told by your dietitian. This information is not intended to replace advice given to you by your health care provider. Make sure you discuss any questions you have with your health care provider. Document Revised: 01/05/2023 Document Reviewed: 01/05/2023 [employer] Patient Education ? 2023 [employer] AMBULATORY VISIT SUMMARY Observed: 07/07 9:58 AM Status: F Source: [facility] Ambulatory Visit Summary SAEED SARABIA :1940 Visit Date:07/07/2025 Ambulatory Visit Instructions Your Diagnosis Ureteral stone with hydronephrosis Kidney stones Anticoagulated Tests Performed US Renal -- Results Pending -- Please visit your patient portal for your results or contact your primary care physician. Your Care Team Attending Physician - DEANA ABARCA, CARI Primary Care Physician - KIRSTIN MILLER CNP This Is Your Medications List apixaban (Eliquis 5 mg oral tablet) ezetimibe (ezetimibe 10 mg Tab) glipiZIDE (glipiZIDE 5 mg Tab) lisinopril (lisinopril 20 mg Tab) metformin (metformin 1000 mg Tab) metoprolol (metoprolol succinate 100 mg ER Tab) pantoprazole (Pantoprazole [address] Tab) rosuvastatin (rosuvastatin 5 mg Tab) spironolactone (spironolactone 25 mg Tab) Discharge Vitals Temperature (Tympanic) 37 ???C Respiratory Rate 16 Height 164 cm Height 65 in Weight 73.7 kg Weight 162.48 lb BMI 27.4 What to do next You Need to Schedule the Following Appointments Follow Up with DEANA ABARCA, PEDRITO ALCALA When: Where: Medications What How Much When Instructions Unchanged apixaban (Eliquis 5 mg oral tablet) 1 Tablets By Mouth 2 times a day Unchanged ezetimibe (ezetimibe 10 mg Tab) 1 Tablets By Mouth Every day Unchanged glipiZIDE (glipiZIDE 5 mg Tab) 1 Tablets By Mouth Every day Unchanged lisinopril (lisinopril 20 mg Tab) 1 Tablets By Mouth Every day Unchanged metformin (metformin 1000 mg Tab) 1 Tablets By Mouth 2 times a day Unchanged metoprolol (metoprolol succinate 100 mg ER Tab) 1 Tablets By Mouth Every day Unchanged pantoprazole (Pantoprazole [address] Tab) 1 Tablets TAKE 1 TABLET BY MOUTH IN THE MORNING then TAKE 1 TABLET BY MOUTH IN THE EVENING BEFORE MEALS Unchanged rosuvastatin (rosuvastatin 5 mg Tab) 1 Tablets By Mouth Every day Unchanged spironolactone (spironolactone 25 mg Tab) 1 Tablets By Mouth Every day Allergies No Known Medication Allergies Problems Ongoing - Any problem that you are currently receiving treatment for. Anticoagulated Kidney stones Ureteral stone with hydronephrosis Patient Survey You may receive a survey via text or e-mail asking about your office visit. Please share your experience with us by completing your survey. We appreciate your feedback and thank you for choosing us for your care. Education Materials Dietary Guidelines to Help Prevent Kidney Stones Kidney stones are deposits of minerals and salts that form inside your kidneys. Your risk of developing kidney stones may be greater depending on your diet, your lifestyle, the medicines you take, and whether you have certain medical conditions. Most people can lower their risks of developing kidney stones by following these dietary guidelines. Your dietitian may give you more specific instructions depending on your overall health and the type of kidney stones you tend to develop. What are tips for following this plan? Reading food labels ??? Choose foods with no salt added or low-salt labels. Limit your salt (sodium) intake to less than 1,500 mg a day. ??? Choose foods with calcium for each meal and snack. Try to eat about 300 mg of calcium at each meal. Foods that contain 200???500 mg of calcium a serving include: ? 8 oz (237 mL) of milk, xsruudo-liaatxtsfvbp-mzqkd milk, and calcium- fortifiedfruit juice. Calcium-fortified means that calcium has been added to these drinks. ? 8 oz (237 mL) of kefir, yogurt, and soy yogurt. ? 4 oz (114 g) of tofu. ? 1 oz (28 g) of cheese. ? 1 cup (150 g) of dried figs. ? 1 cup (91 g) of cooked broccoli. ? One 3 oz (85 g) can of sardines or mackerel. Most people need 1,000???1,500 mg of calcium a day. Talk to your dietitian about how much calcium is recommended for you. Shopping ??? Buy plenty of fresh fruits and vegetables. Most people do not need to avoid fruits and vegetables, even if these foods contain nutrients that may contribute to kidney stones. ??? When shopping for convenience foods, choose: ? Whole pieces of fruit. ? Pre-made salads with dressing on the side. ? Low-fat fruit and yogurt smoothies. ??? Avoid buying frozen meals or prepared deli foods. These can be high in sodium. ??? Look for foods with live cultures, such as yogurt and kefir. ??? Choose high-fiber grains, such as whole-wheat breads, oat bran, and wheat cereals. Cooking ??? Do not add salt to food when cooking. Place a salt shaker on the table and allow each person to add their own salt to taste. ??? Use vegetable protein, such as beans, textured vegetable protein (TVP), or tofu, instead of meat in pasta, casseroles, and soups. Meal planning ??? Eat less salt, if told by your dietitian. To do this: ? Avoid eating processed or pre-made food. ? Avoid eating fast food. ??? Eat less animal protein, including cheese, meat, poultry, or fish, if told by your dietitian. To do this: ? Limit the number of times you have meat, poultry, fish, or cheese each week. Eat a diet free of meat at least 2 days a week. ? Eat only one serving each day of meat, poultry, fish, or seafood. ? When you prepare animal proteins, cut pieces into small portion sizes. For most meat and fish, one serving is about the size of the palm of your hand. ??? Eat at least five servings of fresh fruits and vegetables each day. To do this: ? Keep fruits and vegetables on hand for snacks. ? Eat one piece of fruit or a handful of berries with breakfast. ? Have a salad and fruit at lunch. ? Have two kinds of vegetables at dinner. ??? You may be told to limit foods that are high in a substance called oxalate. These include: ? Spinach (cooked), rhubarb, beets, sweet potatoes, and [place] chard. ? Peanuts. ? Potato chips, malay fries, and baked potatoes with skin on. ? Nuts and nut products. ? Chocolate. ??? If you regularly take a diuretic medicine, make sure to eat at least 1 or 2 servings of fruits or vegetables that are high in potassium each day. These include: ? Avocado. ? Banana. ? [place], prune, carrot, or tomato juice. ? Baked potato. ? Cabbage. ? Beans and split peas. Lifestyle ??? Drink enough fluid to keep your urine pale yellow. This is the most important thing you can do. Spread your fluid intake throughout the day. ??? If you drink alcohol: ? Limit how much you have to: ? 0???1 drink a day for women who are not . ? 0???2 drinks a day for men. ? Know how much alcohol is in your drink. In the [place] one drink equals one 12 oz bottle of beer (355 mL), one 5 oz glass of wine (148 mL), or one 1??? oz glass of hard liquor (44 mL). ??? Lose weight if told by your health care provider. Work with your dietitian to find an eating plan and weight loss strategies that work best for you. General information ??? Talk to your health care provider and dietitian about taking daily supplements. Depending on your health and the cause of your kidney stones, you may be told: ? Do not take high-dose supplements of vitamin C (1,000 mg a day or more). ? To take a calcium supplement. ? To take a daily probiotic supplement. ? To take other supplements such as magnesium, fish oil, or vitamin B6. ??? Take acvy-xfm-qkdjncu and prescription medicines only as told by your health care provider. These include supplements. What foods should I limit? Limit your intake of the following foods, or eat them as told by your dietitian. Vegetables Spinach. Rhubarb. Beets. Canned vegetables. Pickles. Olives. Baked potatoes with skin. Grains Wheat bran. Baked goods. Salted crackers. Cereals high in sugar. Meats and other proteins Nuts. Nut butters. Large portions of meat, poultry, or fish. Salted, precooked, or cured meats, such as sausages, meat loaves, and hot dogs. Dairy Cheeses. Beverages Regular soft drinks. Regular vegetable juice. Seasonings and condiments Seasoning blends with salt. Salad dressings. Soy sauce. Ketchup. Barbecue sauce. Other foods Canned soups. Canned pasta sauce. Casseroles. Pizza. Lasagna. Frozen meals. Potato chips. [place] fries. The items listed above may not be a complete list of foods and beverages you should limit. Contact a dietitian for more information. What foods should I avoid? Talk to your dietitian about specific foods you should avoid based on the type of kidney stones you have and your overall health. Fruits Grapefruit. The item listed above may not be a complete list of foods and beverages you should avoid. Contact a dietitian for more information. Summary ??? Kidney stones are deposits of minerals and salts that form inside your kidneys. ??? You can lower your risk of kidney stones by making changes to your diet. ??? The most important thing you can do is drink enough fluid. Drink enough fluid to keep your urine pale yellow. ??? Talk to your dietitian about how much calcium you should have each day, and eat less salt and animal protein as told by your dietitian. This information is not intended to replace advice given to you by your health care provider. Make sure you discuss any questions you have with your health care provider. Document Revised: 01/05/2023 Document Reviewed: 01/05/2023 [employer] Patient Education ??? 2023 [employer] Patient Portal You may access all of your results and other medical record information on our secure patient portal. If you are not signed up for this yet, please contact [employer] at [phone] to get signed up today. Language Information Language assistance services are available as needed. 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 denies having incontinence Pt. denies having pain with urination Pt. denies having gross hematuria Pt. denies having abd pain Pt. denies having flank pain History of Present Illness Tests reviewed: reviewed ER note, CT, labs, new pt paperwork. I have reviewed the previous health record information and history for this patient from external provider I have reviewed and verified the staff HPI to be accurate for this encounter. Review of Systems PHQ Score Initial Depression Screen Score: 0 SCORE ROS - Provider Constitutional: denies weight loss, denies hot flashes. Eyes: denies eye problems. Gastrointestinal: denies nausea, denies vomiting. Cardiovascular: denies chest pain or angina. Integumentary: no dryness Musculoskeletal: denies musculoskeletal symptoms. ENMT: denies otolaryngeal symptoms. Respiratory: no shortness of breath. Heme/Lymph: denies easy bleeding tendency, denies easy bruising tendency. Psychiatric: no confusion, no anxiety. Genitourinary: See HPI. Physical Exam Vitals & Measurements T: 37 ???C(Tympanic) RR: 16 HT: 65 in HT: 164 cm WT: 162.48 lb WT: 73.7 kg BMI: 27.4 General Appearance: alert , no acute distress, well nourished, well developed female. Head: normocephalic . Eyes: normal orbit and globe. ENMT: normal examination of external ears. Chest: Lungs CTA, respirations non labored . Psychiatric: cooperative, affect appropriate for age, normal judgement, euthymic mood. Assessment/Plan 84 yo F presents for f/up to recent [facility] ER visit for ureteral stone. Pt accompanied by . Ambulates with walker secondary to drop foot. BBSQ 5 Portions of this record may have been created with voice recognition artificial intelligence software, specifically [employer], [employer] and or [employer] Substitutions may have occurred due to the inherent limitations of voice recognition and artificial intelligence software. 1. Ureteral stone with hydronephrosis (N13.2: Hydronephrosis with renal and ureteral calculous obstruction) Pt presented to [facility] ER 06/29/25 with N/V and diarrhea. CT AP w con reveals 4 mm R UVJ calculus with mild R hydroureteronephrosis. Labs - Cr 1.16, eGFR 45 KUB 07/02/25 [facility] - previously visualized distal R ureteral stone is not well visualized within the pelvis. First stone event. Pt reports today that she had pain when she was in the ER. Last pain episode was a few days ago. Pt did not visibly see the stone pass. Was not provided a strainer upon discharge. Discussed options including BONILLA, CT vs URS. Will proceed with BONILLA. If hydro is still present, will further discuss surgical mgmt of stone. -Urine strainer, hat and specimen cup provided today, pt to keep stone if she passes -Schedule BONILLA at [facility], pt to be called with results -If hydro persists, will further discuss surgical mgmt 2. Kidney stones (N20.0: Calculus of kidney) CT AP w con 06/29/25 [facility] - multiple RLP 3 mm stones. -See #1 3. 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 Elevated risk for periop complications. Patient is an 84-year-old female who presented with right-sided flank pain. CT abdomen pelvis did show a 4 mm right UVJ stone. KUB does not show any stone present. She has not had pain for few days. I discussed with the patient that we will obtain a renal ultrasound to rule out any silent hydronephrosis. If hydronephrosis part present she would benefit from intervention with a ureteroscopy, laser lithotripsy. Risk, benefits, alternatives discussed extensive detail with her and we will proceed as such. Follow-up on renal ultrasound. Follow-up With When Contact Information DEANA ABARCA, CARI, URL Additional Instructions: F/up pending [facility] Patient Education Dietary Guidelines to Help Prevent Kidney Stones ILeandra, personally scribed for Dr. Palacios on 07/07/2025 10:33:15. . Documentation recorded by the scribe, Leandra Carlisle, accurately reflects the services(s) I performed and decisions made by me. Authenticated by Dr. Grove on 07/07/2025 10:37:37. Problem List/Past Medical History Ongoing Anticoagulated Kidney stones Ureteral stone with hydronephrosis Historical No qualifying data Medications No active medications Allergies No Known Medication Allergies Social History Alcohol Never., 07/07/2025 Substance Abuse Never., 07/07/2025 Tobacco Never (less than 100 in lifetime) Tobacco Use:. Never Smokeless Tobacco Use:., 07/07/2025 Result Comment: Electronical ly Signed By: CARI GROVE MD\.br\Date and Time Signed: 07/07/25 10:40 EDT\.br\Electronically Co-Signed By: Leandra Carlisle.doug\Date and Time Co-Signed: 07/07/25 10:34 EDT HISTORY PHYSICAL Observed: 01/17/2025 10:34 AM Status: COMPLETED Source: [facility] HNO ID: [id number] Author: FRANCIS CARROLL APRN.STOCK SPECULATOR Service: ? Author Type: Nurse Practitioner Type: [...] abdominal pain. Initial evaluations at [facility] suggested the presence of multiple gallstones, with recommendations for cholecystectomy. However, subsequent evaluations by another physician at the same hospital contradicted this recommendation, stating that surgery was not necessary. After a week of hospitalization and multiple tests, no definitive cause for the abdominal pain was identified. Due to persistent severe pain, patient was taken to the [facility] Emergency Room, where further evaluations were conducted, including an endoscopy and various scans. A colonoscopy performed at [facility] revealed non-cancerous polyps, which were removed. During the evaluations at [facility], a scan indicated uterine thickening, leading to concerns about potential cancer. A enamel shader at [facility] subsequently removed a polyp measuring 2 cm by 9 cm from the uterus and cervix. Following this procedure, patient's abdominal pain reportedly resolved. Patient has a known history of gallstones, with conflicting medical opinions on the necessity of cholecystectomy. One physician at [facility] recommended immediate surgery, stating the gallbladder was completely full of stones, while another physician at [facility] advised against it. Patient has [...] lb 2.5 oz) SpO2 99% BMI 26.01 kg/m? Gen: Comfortable in NAD Head: Normocephalic, atraumatic [...] weight loss. This note was dictated using [employer] speech recognition software and may contain some errors that were a result of the program not accurately transcribing what was dictated. The patient consented to the use of [employer] software for draft documentation of the visit consistent with [facility]?s Notice of Privacy Practices. Francis Carroll APRN.CNP CNOV Observed: 01/17/2025 10:30 AM Status: COMPLETED Source: [facility] Office Visit ([facility]ST[facility]) SAEED SARABIA ([id number]) 1940 F Date Time Provider Department 01/17/25 10:30 AM FRANCIS ACRROLL [facility] During your visit today, we recorded the following information about you: Pulse Blood pressure Weight 62/minute 167/74 73.1 kg Francis Carroll APRN.CNP 01/17/2025 1:31 PM Signed Consultation requested by [...] abdominal pain. Initial evaluations at [facility] suggested the presence of multiple gallstones, with recommendations for cholecystectomy. However, subsequent evaluations by another physician at the same hospital contradicted this recommendation, stating that surgery was not necessary. After a week of hospitalization and multiple tests, no definitive cause for the abdominal pain was identified. Due to persistent severe pain, patient was taken to the [facility] Emergency Room, where further evaluations were conducted, including an endoscopy and various scans. A colonoscopy performed at [facility] revealed non-cancerous polyps, which were removed. During the evaluations at [facility], a scan indicated uterine thickening, leading to concerns about potential cancer. A enamel shader at [facility] subsequently removed a polyp measuring 2 cm by 9 cm from the uterus and cervix. Following this procedure, patient's abdominal pain reportedly resolved. Patient has a known history of gallstones, with conflicting medical opinions on the necessity of cholecystectomy. One physician at [facility] recommended immediate surgery, stating the gallbladder was completely full of stones, while another physician at [facility] advised against it. Patient has [...] lb 2.5 oz) SpO2 99% BMI 26.01 kg/m? Gen: Comfortable in NAD Head: Normocephalic, atraumatic [...] weight loss. This note was dictated using [employer] speech recognition software and may contain some errors that were a result of the program not accurately transcribing what was dictated. The patient consented to the use of ambient [employer] software for draft documentation of the visit consistent with [facility]?s Notice of Privacy Practices. BRADEN Cade Nicole, APRN.CNP 01/17/2025 10:47 AM Signed Thank you for seeing me in clinic today. As we discussed, my recommendations are as follows: 1.Consult to general surgery If you have any questions about the above treatment plan, please do not hesitate to call the office or send me a [employer] message. Referring Provider: ROLANDA CHAPARRO [[id number]] Allergies As of Date: 01/17/2025 Noted Allergy Reaction MORPHINE 09/17/2024 8 - GI Upset Date Reviewed: 01/17/2025 Reviewed by: Franca Montgomery MA - Fully Assessed Reason for Visit: Follow Up [171] Primary Visit Diagnosis:Calculus of gallbladder without cholecystitis without obstruction [K80.20] Other Visit Diagnosis:Unintentional weight loss [R63.4] Order(s):CONSULT TO GENERAL SURGERY [9011] Order #: [id number]: 1 FUTURE Prescriptions as of 01/17/2025 - cyanocobalamin (VITAMIN B-12) 1,000 mcg tab [...] once daily. Problem List As Of Date 01/17/2025 Noted Resolved Spinal stenosis [M48.00] 03/28/2022 Right leg weakness [R29.898] 03/29/2022 HLD (hyperlipidemia) [E78.5] 03/29/2022 Foot drop, right foot [M21.371] 03/29/2022 Atrial fibrillation (HCC) [I48.91] 03/29/2022 Benign essential HTN [I10] 03/29/2022 DM type 2 (diabetes mellitus, type 2) (HCC) [E1*03/29/2022 Constipation [K59.00] 04/02/2022 Altered mental status [R41.82] 10/16/2024 01/06/2025 Abdominal pain [R10.9] 10/16/2024 Malnutrition of moderate [...] [R93.5] 10/29/2024 CAD (coronary artery disease) [I25.10] Other instructions from your clinician: Thank you for seeing me in clinic today. As we discussed, my recommendations are as follows: 1.Consult to general surgery If you have any questions about the above treatment plan, please do not hesitate to call the office or send me a [employer] message. Encounter Status:Closed by ENRIKE FRANCIS on 01/17/25 PROGRESS Observed: 12/17/2024 9:14 AM Status: COMPLETED Source: [facility] HNO ID: [id number] Author: LUCIANA GREEN DO Service: ? Author [...] 2. Postop restrictions reviewed. Luciana Green DO CNOV Observed: 12/17/2024 9:00 AM Status: COMPLETED Source: [facility] Office Visit (OGFVWE) SAEED SARABIA ([id number]) 1940 F Date Time Provider Department 12/17/24 9:00 AM LUCIANA GREEN O[facility]WE During your visit today, we recorded the following information about you: Pulse Blood pressure Weight Height 70/minute 120/70 72.5 kg 1.676 m Aubrie Young MA 12/17/2024 12:51 PM Signed Patient Admitting Clerk offered: Patient declines. Luciana Green DO 12/17/2024 [...] GI Upset Date Reviewed: 12/17/2024 Reviewed by: Aubrie Young MA - Fully Assessed Reason for [...] Encounter Status:Closed by LUCIANA GREEN on 12/17/24 PROGRESS Observed: 12/17/2024 8:53 AM Status: COMPLETED Source: [facility] HNO ID: [id number] Author: AUBRIE YOUNG MA Service: ? Author Type: Oracle Business Intelligence Developer Type: Progress Notes Filed: 12/17/2024 12:51 Note Text: Patient Admitting Clerk offered: Patient declines. ANES POSTPROC EVAL Observed: 12/06/2024 11:36 AM Status: COMPLETED Source: [facility] HNO ID: [id number] Author: GEMA NAQVI MD Service: Anesthesiology Author Type: Anesthesiologist [...] [N84.0]) Surgeons: Luciana Green DO Responsible Provider: Gema Naqvi MD Anesthesia Type: general ASA Status: 3 Anesthesia Type: general Airway Type: LMA, ETT Last Vitals Vitals Value Taken Time BP 135/88 12/06/24 1019 Temp 36.4 ?C (97.5 ?F) 12/06/24 1019 HR SpO2 60 12/06/24 1023 Resp 15 12/06/24 1000 SpO2 100 % 12/06/24 1023 Vitals shown include unfiled device data. [facility] AN POST OP NOTE Anesthesia Observations No Documentation SIGNATURE: Gema Naqvi MD PATIENT NAME: Saeed Sarabia DATE: December 06, 2024 TIME: 11:36 AM CSN: [id number] NURSING PROG Observed: 12/06/2024 10:12 AM Status: COMPLETED Source: [facility] HNO ID: [id number] Author: KATHY TAVERAS RN Service: Nursing Author [...] Signed By: Kathy Taveras RN In Department: [facility] OPERATING ROOM BRIEF OP NOT Observed: 12/06/2024 9:02 AM Status: COMPLETED Source: [facility] HNO ID: [id number] Author: ITZ AVALOS RN Service: ? Author Type: Registered Nurse Type: Brief Op Note Filed: 12/06/2024 09:02 Note Text: Per Surgeon, Fluid deficit is 285cc. TISS PATH BX REPORT Collected: 12/06/2024 8:[address] atus: F Source: [facility] Order Comment: Specimen Type : TISSUE SPECIMEN Ordering Facility: [facility] Address: [address] [place] [address] TYPE CODE TESTS RESULT OUT OF RANGE REFERENCE UNITS PATHOLOGY [id number] CASE REPORT Result Comment: Surgical Pat hology Report Case: [id number] Authorizing Provider: Luciana Green DO Collected: 12/06/2024 08:36 AM Ordering Location: [facility] Received: 12/06/2024 09:22 AM Operating Room Pathologist: Robyn Minaya MD Specimens: A) - Endometrium, Polyp B) - Endometrium, Curettings PATHOLOGY [id number] FINAL DIAGNOSIS Result Comment: A. Uterus, e ndometrium, polypectomy -Fragments of benign endometrial polyp B. Uterus, endometrium, dilation and curettage -Fragments of superficial inactive endometrium -Fragments of benign endometrial polyp at 1231 EST PATHOLOGY [id number] GROSS DESCRIPTION Result Comment: A. Endometri um, Polyp Received in formalin are two segments [...] 2024 1:33 PM Gross examination performed at [facility], [address] [place] [address] PATHOLOGY CDX2 CLINICAL HISTORY Result Comment: Pre-op diagn osis: Endometrial polyp [N84.0] PATHOLOGY [facility] FINAL PERFORMING LAB Result Comment: Diagnostic i nterpretation performed at: [facility], [address] [place] [address] CLIA# [id number] Drafter Commercial: Liam Naik MD PATHOLOGY [id number] AP DISCLAIMER Result Comment: Laboratory D eveloped Test (LDT) Disclaimer: Performance characteristics of immunohistochemical, immunofluorescent, and chromogenic in-situ hybridization tests have been determined by the performing laboratory within [facility]'s [facility] Pathology and Laboratory Medicine Department ([facility], [facility], [facility], [facility], [facility], [facility], or [facility]) in a manner consistent with CLIA requirements. One or more of these tests may not have been cleared or approved by the FDA. [facility] is regulated under CLIA as qualified to perform high-complexity testing. These tests are used for clinical purposes. These should not be regarded as investigational or for research. Positive and negative controls stain appropriately. Performed By: #### [id number] # ### [facility] CLIA [id number] [address] [place], [place] [address] [place] ANES PROCEDURE NOTE Observed: 12/06/2024 8:19 AM Status: COMPLETED Source: [facility] HNO ID: [id number] Author: MARGARETTE TRIANA APRN.CRNA Service: ? Author Type: Nurse Clinical Transformation Specialist Type: Anesthesia Procedure Notes Filed: 12/06/2024 08:19 Note Text: ANESTHESIOLOGY PROCEDURE NOTE PIV General Information Procedure Start Time/Medication Administration: 12/06/2024 8:00 AM Procedure End Time: 12/06/2024 8:00 AM Patient Location: OR Staffing FAST FOOD SALES ASSISTANT: Margarette Triana APRN.FAST FOOD SALES ASSISTANT Performed by: PACO Preparation Sterility Preparation: hand [...] December 06, 2024 TIME: 8:19 AM CSN: [id number] ANES PROCEDURE NOTE Observed: 12/06/2024 8:17 AM Status: COMPLETED Source: [facility] ID: [id number] Author: MARGARETTE TRIANA APRN.FAST FOOD SALES ASSISTANT Service: ? Author Type: Nurse Clinical Transformation Specialist Type: Anesthesia Procedure Notes Filed: 12/06/2024 08:18 Note Text: ANESTHESIOLOGY PROCEDURE NOTE Airway General Information Procedure Start Time/Medication Administration: 12/06/2024 7:45 AM Procedure End Time: 12/06/2024 7:45 AM Patient location during procedure: OR Patient identity confirmed: arm band and patient Staffing FAST FOOD SALES ASSISTANT: Margarette Triana APRN.FAST FOOD SALES ASSISTANT Performed by: PACO Indications and Patient Condition Indications for airway management: anesthesia Preoxygenated: yes anesthesia circuit Patient position: sniffing Method: sleep Difficult Mask: No Final Airway Details Final airway type: endotracheal airway Final Endotracheal Airway: ETT Cuffed: yes Successful intubation technique: video laryngoscopy Devices used: Mobilitrix Endotracheal tube insertion site: oral Blade size: [...] December 06, 2024 TIME: 8:17 AM CSN: [id number] TYPE + SCREEN Collected: 12/06/2024 8:02 AM Status: F Source: [facility] Order Comment: Specimen Type : BLOOD SPECIMEN Ordering Facility: [facility] Address: [address] [place] [address] TYPE CODE TESTS RESULT OUT OF RANGE REFERENCE UNITS LAB [id number] ABO O LAB [id number] RH Positive LAB [id number] ANTIBODY SCREEN Negative LAB [id number] TYPE AND SCREEN EXPIRATION 12/09/2024 23:59 Performed By: #### TSCR #### [facility] CLIA [id number] [address] [place] [address] OPERATIVE NO Observed: 12/06/2024 7:34 AM Status: COMPLETED Source: [facility] HNO ID: [id number] Author: LUCIANA GREEN DO Service: Obstetrics Author Type: Physician Type: Operative Report Filed: 12/06/2024 09:21 Note Text: BOTTLE AND GLASS INSPECTOR OPERATIVE/PROCEDURE REPORT LOG ID: [id number] Surgery/Procedure Date: 12/06/2024 Incision/Procedure Start Time: 8:09 AM Incision Close/Procedure End Time: 8:47 AM Surgeon(s)/Proceduralist(s) and Clinical Cytogeneticist Scientist(s): Surgeons and Role: * Luciana Green DO [...] 06, 2024 TIME: 9:16 AM PAGER/CONTACT #: ANES PRE-OP Observed: 12/06/2024 7:27 AM Status: COMPLETED [facility] [id number] Author: GEMA NAQVI MD Service: Anesthesiology Author Type: Anesthesiologist Type: Anesthesia Preprocedure Evaluation Filed: 12/06/2024 07:27 Note Text: ANESTHESIOLOGY DAY OF SURGERY NOTE : 1940 Procedure Information Date/Time: 12/06/24729 Procedures: EXAM UNDER ANESTHESIA PELVIC / VAGINAL (Vagina ) HYSTEROSCOPY SURGICAL W/SAMPLING BIOPSY OF ENDOMETRIUM AND/OR POLYPECTOMY W/ OR W/O DANDC (TRUCLEAR) Location: [facility] OR11 / [facility] Surgeons: Luciana Green DO Estimated body [...] Anesthetic Plan: general Airway type: LMA Beta Gabbi Monitoring Plan Post Procedure Analgesic Plan Informed Consent Anesthetic risks, benefits, alternatives, personnel and consent discussed: yes. Patient / Responsible Libertarian agrees to proceed: yes Patient / Surrogate agrees to blood products: blood products not planned Vitals Value Taken Time BP 160/68 12/06/2437 Pulse 76 12/06/24636 Resp 16 12/06/24636 Temp 36.3 ?C (97.3 ?F) 12/06/24636 SpO2 [...] obtained within 48 hours of Surgery/Procedure. SIGNATURE: Gema Naqvi MD PATIENT NAME: Saeed Sarabia DATE: December 06, 2024 TIME: 7:27 AM CSN: [id number] PROGRESS Observed: 11/15/2024 2:41 PM Status: COMPLETED Source: [facility] ID: [id number] Author: MAXINE KABA RT(R) Service: ? Author [...] PATIENT PRESENTS WITH AN IMPLANTABLE OR ATTACHED PIGMENT PROCESSOR: No RADIOLOGY DEPARTMENT: General X-ray: Exam(s) Completed: Chest X-Ray PERIPHERAL IV DATA: Not applicable SIGNED BY: Maxine Kaba RT(R) November 15, 2024 2:41 PM XR CHEST 2V FRONTAL/LAT Observed: 2024 2:40 PM Status: F Source: [facility] * * *Final Report* * * DATE [...] skeletal findings. IMPRESSION: No acute radiographic abnormality. Teller Vault: ROSS Transcribe Date/Time: Nov 18 2024 12:10P Dictated by : VIOLET MONTENEGRO MD This examination was interpreted and the report reviewed and electronically signed by: VIOLET MONTENEGRO MD on Nov 18 2024 12:12PM EST [id number] HISTORY PHYSICAL Observed: 11/15/2024 1:40 PM Status: COMPLETED Source: [facility] HNO ID: [id number] Author: MAXINE SINGH APRN.BREAKER UP MACHINE OPERATOR Service: ? Author Type: Clinical Nurse Specialist Type: H&P Filed: 11/18/2024 12:26 Note Text: [facility] HISTORY AND PHYSICAL EXAMINATION SERVICE DATE: 11/14/2024 SERVICE TIME: 3:47 PM PRIMARY CARE PHYSICIAN: Kirstin Miller, STOCK SPECULATOR, STOCK SPECULATOR Assessment Patient has the following medical conditions which may affect ashley-operative course: Atrial fibrillation (HCC) Assessment: takes Eliquis daily, will stop 2 days pre op,currently stable Benign essential HTN Assessment: takes Lisinopril,Metoprolol,stable BP 147/56 taken at [facility] visit 11/15/24 CAD (coronary artery disease) Assessment: had LAD stent placed 2005 followed per [facility] Roberson DM type 2 (diabetes mellitus, type 2) (HCC) Assessment: takes Metformin,Glipizide currently stable Glucose Date Value Ref Range Status 10/20/2024 135 (H) 74 - 99 mg/dL Final Comment: The [place] Diabetes Association (ADA) provides guidance for cutoff [...] Standards of Medical Care in Diabetes 2016, [place] Diabetes Association. Diabetes Care. 2016.39(Suppl 1). HLD [...] large neck Non-male patient STOP-Bang Score: 1 [id number] Score: Age: >=75 Sex: female CHF history: No Hypertension history: Yes Stroke/TIA/thromboembolism history: No Vascular disease history: No Diabetes history: Yes [id number] Score: 5 ARISCAT Score: Age: >80 Preoperative [...] Wang present: no Lip Bite Test: II Microretrognathia/Micronagthia/Recessed Chin: No DENTAL Normal dental observations. Dental findings: teeth intact. Dentures, upper: complete. II - ANESTHESIA PLAN Anesthetic Plan: other Anesthetic plan additional comments: Anesthesia choice. Beta Gabbi Monitoring Plan Post Procedure Analgesic Plan Prepared for Surgery: optimally prepared for surgery, pending day of surgery. Chest Xray CONSULTS: Patient does not require consults for optimization at this time The following consults have been initiated at this time: cardiology (cardiac clearance in [facility] of 11/07/[address] Moni Roberson). Planned Anesthetic: other The Following Tests/Procedures [...] AND/OR POLYPECTOMY W/ OR W/O DANDC (TRUCLEAR) (N/A) at the request of Luciana Bunn DO for consultation. My final recommendation will be communicated back to the requesting physician by way of shared medical record or letter. Subjective The patient has the following: COVID-19 Immunization Status Overdue - Covid-19 Vaccine (2023- season) Overdue since 06/09/2024 08/12/2022 Imm Admin: [...] fevers. Neurological: No history of TIA's, stroke, BREAKER UP MACHINE OPERATOR tumor, impaired sensorium, hemiplegia, paraplegia or quadraplegia. [...] > 1 time per night or hematuria. BOTTLE AND GLASS INSPECTOR: Negative for abnormal vaginal bleeding, abnormal vaginal [...] 3.5 oz (69.5kg) SpO2 97% BMI 24.74 kg/(m2). Diagnostic tests reviewed for today's visit: Lab [...] 413 QTC Calculation (Bazett) 465 Calculated P [place] 97 Calculated R Sal[place] -42 Calculated T [place] 100 Impression Sinus rhythm Atrial premature complex Borderline short WV interval Left bundle branch block Abnormal ECG No Stemi Confirmed by JASON SAGASTUME MD ([id number]) on 10/16/2024 4:13:30 PM Recent Results (from the past 12300 hour(s)) ECHO Collection Time: 03/29/22 3:52 PM [...] prior CC echocardiographic exam for comparison. Final CHEST Xray in epic of 11/15/24 RESULT: Lines, tubes, and devices: None. Lungs and pleura: No consolidation. Bibasal atelectatic changes. No lung mass. No pleural effusion. No pneumothorax. Cardiomediastinal silhouette: Heart size is within normal limits. Calcified aortic knuckle. Instructions Given to Patient: Instructions located in the after visit summary. Patient given verbal and written preop instructions and voices comprehension and compliance. SIGNATURE: Maxine Singh APRN.BREAKER UP MACHINE OPERATOR PATIENT NAME: Saeed Sarabia DATE: November 14, 2024 TIME: 4:02 PM PAGER/CONTACT #: NICOLE Observed: 11/13/2024 12:08 PM Status: COMPLETED Source: [facility] Patient: Saeed Sarabia Procedure Summary Date: 11/13/24 Room / Location: [facility] [place] Anesthesia Start: 1039 Anesthesia Stop: 1144 Procedure: DIAGNOSTIC COLONOSCOPY Diagnosis: Abdominal pain, unspecified site Scheduled Providers: Walter Davis MD; ROB Dumont; Alexis Arango MD [...] per anesthesia protocol. No notable events documented. HP Observed: 11/13/2024 11:30 AM Status: COMPLETED Source: [facility] H&P reviewed. The patient wa s examined and there are no changes to the H&P. Here for evaluation of ongoing weight loss. Recent EGD was unremarkable. Discussed colonoscopy including risks of the procedure. We discussed that she was higher than average risk for perforation given her age and if that were to occur it could be life threatening. She expressed understanding of this and agreed to proceed. [id number] Observed: 11/13/2024 11:30 AM Status: COMPLETED Source: [facility] Patient: Saeed Sarabia Procedure Summary Date: 11/13/24 Room / Location: [facility] [place] Anesthesia Start: 1039 Anesthesia Stop: Procedure: DIAGNOSTIC COLONOSCOPY Diagnosis: Abdominal pain, unspecified site Scheduled Providers: Walter Davis MD; ROB Dumont; Alexis Arango MD Responsible Provider: Alexis Arango MD Anesthesia Type: MAC ASA Status: 4 Anesthesia Post Transport Note [facility]: room air Patient Monitor: direct observation Transport: uneventful Patient condition is: stable HISTOLOGY - TISSUE EXAM Collected: 02/2025 11:00 AM Status: UNK Source: [facility] TYPE CODE TESTS RESULT OUT OF RANGE REFERENCE UNITS PATHOLOGY 1499 LAB AP CASE REPORT Result Comment: Surgical Pat hology Case: [id number] Authorizing Provider: Walter Davis MD Collected: 11/13/2024 1100 Ordering Location: Moni Saavedra Received: 11/13/2024 1303 [facility] Pathologist: Cyndee Eden MD Specimens: A) - Large Intestine, Cecum, cecum polyp to r/o adenoma B) - Large Intestine, Right/Ascending Colon, asending EMR polyp to R/O adenoma PATHOLOGY 34 LAB AP REPORT FINAL DIAGNOSIS NARRATIVE Result Comment: A. Colon, ce cory polyp, polypectomy: - Tubular adenoma. - No high grade dysplasia is seen. B. Colon, ascending polyp, polypectomy: - Multiple fragments of serrated polyp with no dysplasia. - See comment. OLOGY 29 LAB AP CLINICAL INFORMATION Order Diagnoses Result Comment: R10.9 - Abdo yg pain, unspecified site [ICD-10-CM] PATHOLOGY 35 LAB AP DIAGNOSIS COMMENT B. Due to extensive specimen fragmentation, it is not possible to differentiate a sessile serrated adenoma from a hyperplastic polyp. Suggest endoscopic correlation and close follow-up. PATHOLOGY [id number] LAB AP GROSS DESCRIPTION Result Comment: A. Large Int estine, Cecum. Part A is received in formalin labeled Saeed Maxwell and cecum polyp to rule out adenoma . It consists of 2 frank-pink, irregular pieces of mucosal tissue measuring 0.2 cm and 0.4 cm in greatest dimension. The specimen is submitted in toto in 1 cassette. Brandi Menendez, Pathologists' Clinical Cytogeneticist Scientist student Trinidad Ornelas, Pathologists' Clinical Cytogeneticist Scientist studentB. Large Intestine, Right/Ascending Colon. Part B is received in formalin labeled Saeed Maxwell and ascending EMR polyp to rule out adenoma . It consists of multiple frank-pink, irregular pieces of mucosal tissue measuring 2.3 x 1.7 x 0.3 cm in aggregate. The specimen is submitted in toto in 1 cassette. No specimen is received pinned to a surgical board. Brandi Menendez, Pathologists' Clinical Cytogeneticist Scientist student Trinidad Ornelas, Pathologists' Clinical Cytogeneticist Scientist student PATHOLOGY 32 LAB AP MICROSCOPIC DESCRIPTION Microscopic examination performed. Performed By: #### [id number] # ### [facility] (BEAKER) [address] [place] [address] ANES Observed: 11/13/2024 10:20 AM Status: COMPLETED Source: [facility] Patient: Saeed Sarabia Procedure Information Date/Time: 11/13/24 1130 Scheduled providers: Walter Davis MD; ROB Dumont; Alexis Arango MD Procedure: DIAGNOSTIC COLONOSCOPY Location: [facility] [place] Relevant Problems Cardio (+) Atrial fibrillation (CMS/HCC) [...] Plan discussed with ROB. Additional Equipment Requests POCT GLUCOSE METER UNSOLICIT ED RESULTS Collected: 11/13/2024 10:03 AM Status: UNK Source: [facility] Order Comment: Waived Testin g in the ED is performed under the ED CLIA certificate #[id number]. TYPE CODE TESTS RESULT OUT OF RANGE REFERENCE UNITS LAB 885 POCT GLUCOSE 120 High 70-105 mg/dL Result Comment: kevin Performed By: #### [id number] #### [facility] ([facility]) [address] [place] [address] PREP FOR PROCEDURE Observed: 11/13/2024 12:00 AM Status: COMPLETED Source: [facility] [id number] Saeed Sarabia 1940 F Date Provider Department Center 11/13/2024 Leann-MARIELLA CHILDS [facility] PREOP MD Medical C Family History Problem Relation Age of Onset Heart attack Mother Coronary artery disease Mother Heart attack Father Coronary artery disease Father Multiple sclerosis Sister Family Status - Relation Status Age at Mother Father Sister HP Observed: 11/07/2024 9:45 AM Status: COMPLETED Source: [facility] Cardiology - [facility] Subjective Saeed Sarabia is a 84 y.o. year old female patient being seen for 9 mo follow up CAD, CHF, PAF, and hypertension. She needs clearance for colonoscopy scheduled 11/13/2024 at [facility] with Dr. Davis. Patient also states she [...] Behavior is cooperative. Judgment: Judgment normal. Allergies Allergies Allergen Reactions Morphine Nausea Only and GI intolerance Medications Current Outpatient Medications: apixaban (Eliquis) 5 mg tablet, Take 1 tablet (5 mg) by mouth in the morning and at bedtime., Disp: 180 tablet, Rfl: 3 bumetanide (Bumex) 1 mg tablet, Take 1 tablet (1 mg) by mouth if needed (leg swelling and dyspnea)., Disp: 90 tablet, Rfl: 3 glipiZIDE (Glucotrol) 5 mg tablet, Take 1 tablet by mouth in the morning and at bedtime., Disp: , Rfl: metFORMIN (Glucophage) 1,000 mg tablet, Take 1 tablet by mouth in the morning and at bedtime., Disp: , Rfl: pantoprazole (ProtoNix) 40 mg EC tablet, Take 1 tablet (40 mg) by mouth before breakfast and before evening meal for 196 doses. Do not crush, chew, or split., Disp: 60 tablet, Rfl: 3 bisacodyl (Dulcolax) 5 mg EC tablet, Do not crush, chew, or split. Use as directed for colonoscopy prep. Follow Physician's instructions., Disp: 4 tablet, Rfl: 0 ezetimibe (Zetia) 10 mg tablet, Take 1 tablet (10 mg) by mouth once daily as directed., Disp: 90 tablet, Rfl: 3 lisinopril 20 mg tablet, Take 1 tablet (20 mg) by mouth once daily as directed., Disp: 90 tablet, Rfl: 3 metoprolol succinate XL (Toprol-XL) 100 mg 24 hr tablet, Take 1 tablet (100 mg) by mouth once daily as directed., Disp: 90 tablet, Rfl: 3 nitroglycerin (Nitrostat) 0.4 mg SL tablet, Place 1 tablet (0.4 mg) under the tongue every 5 (five) minutes if needed for chest pain., Disp: 25 tablet, Rfl: 3 polyethylene glycol (Glycolax) 17 gram/dose powder, Use as directed for colonoscopy prep. Follow Physician's instructions., Disp: 238 g, Rfl: 0 rosuvastatin (Crestor) 5 mg tablet, Take 1 tablet (5 mg) by mouth at bedtime., Disp: 90 tablet, Rfl: 3 spironolactone (Aldactone) 25 mg tablet, TAKE 1/2 (ONE-HALF) OF A TABLET BY MOUTH EVERY DAY, Disp: 45 tablet, Rfl: 3 Recent Labs Blood testing 10/15/2024: Hemoglobin 13.2, platelets 239, potassium 4.8, BUN 15, creatinine 0.92, EGFR 58, LFTs normal. blood testing 08/25/2023: Hemoglobin 13.6, platelets 302, potassium 4.3, BUN 15, creatinine 0.73, EGFR more than 60, hemoglobin A1c 6.0, LFTs normal, triglycerides 104, cholesterol 133, LDL 57, HDL 55, TSH 0.105, free T4 normal, free T3 normal. blood testing 08/15/2022: Potassium 4.7, BUN 15, creatinine 0.73, EGFR more than 60, LFTs normal, cholesterol 128, HDL 48, triglycerides 94, LDL 60, TSH 0.219, free T32.11, hemoglobin A1c 6.4. Blood testing 12/16/2019: Hemoglobin 14.1, platelets 253, potassium 4.1, creatinine 0.97, BUN 19. Lipid profile 06/11/2019: Cholesterol 157, HDL 48, LDL 80, triglycerides 142. Blood testing 12/15/2017: normal renal function and electrolytes. Blood testing 06/14/2018: normal BMP, LDL 91, TG 152. Imaging and other tests ECG 09/17/2024: Sinus rhythm, left bundle branch block. Echocardiogram 02/15/2024: Mild concentric left ventricular hypertrophy with normal systolic function. LVEF is 55 to 60%. Normal right ventricular size and systolic function. No significant valvular dysfunction. Normal right-sided pressures. Mild to moderate biatrial dilatation. ECG 03/28/2022: NORMAL SINUS RHYTHM WITH SINUS ARRHYTHMIA NONSPECIFIC ST ABNORMALITY ABNORMAL ECG EKG 12/16/2019: Sinus rhythm. Cardiac catheterization 07/11/2016: 1. Coronary artery disease. 2. A 70% sequential stenosis in the mid right PDA. 3. Patent previously placed mid LAD stent. 4. Mild disease in the proximal LAD, proximal right coronary artery, left main and mid circumflex vessel (20% at each location). 5. No evidence of aortic stenosis. 6. Severely elevated left filling pressures. RODRIGUEZ guided cardioversion 07/11/2016: Global left ventricular systolic function is normal. The left atrium appears enlarged. The left atrial appendage is monolobular. No thrombus in left appendage. Mild mitral regurgitation. Mild atherosclerotic plaque is seen in the aorta. No intracardiac shunt by agitated saline injections. Biphasic cardioversion was performed at 360 J, the patient was converted to sinus rhythm Assessment/Plan Diagnoses and all orders for this visit: 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 - ezetimibe (Zetia) 10 mg tablet; Take 1 tablet (10 mg) by mouth once daily as directed. - metoprolol succinate XL (Toprol-XL) 100 mg 24 hr tablet; Take 1 tablet (100 mg) by mouth once daily as directed. - rosuvastatin (Crestor) 5 mg tablet; Take 1 tablet (5 mg) by mouth at bedtime. - nitroglycerin (Nitrostat) 0.4 mg SL tablet; Place 1 tablet (0.4 mg) under the tongue every 5 (five) minutes if needed for chest pain. Preop cardiovascular exam Chronic diastolic congestive heart failure (CMS/HCC) Primary hypertension - lisinopril 20 mg tablet; Take 1 tablet (20 mg) by mouth once daily as directed. - spironolactone (Aldactone) 25 mg tablet; TAKE 1/2 (ONE-HALF) OF A TABLET BY MOUTH EVERY DAY Paroxysmal atrial fibrillation (CMS/HCC) LBBB (left bundle branch block) This is an 84-year-old woman with history of coronary disease status post stenting in the past, paroxysmal atrial fibrillation, hypertension and chronic diastolic heart failure. At this time, she seems to be doing well, She has no symptoms of angina or heart failure. NYHA class I. She is in sinus rhythm by exam. Continue Eliquis. No bleeding. Chronic diastolic heart failure: she is in good volume status. Continue current diuretic therapy with as needed Bumex. Recent blood testing that I reviewed shows renal function to be normal. Her blood pressure is elevated. I asked her to monitor blood pressure at home and call me back with readings so we can make adjustments as needed if the systolic blood pressure is consistently above 130 mmHg. Her ECG in September 2024 showed sinus rhythm with left bundle branch block. The left bundle branch block appears to be a new finding for her as it was not present on the most recent ECG in 2021. I am not sure when she developed the bundle branch block. She has no angina and no heart failure symptoms. Her echocardiogram in January 2024 showed normal ventricular and valvular function. At this time we will continue to manage her coronary artery disease medically. I do not think that we need to proceed with further testing such as a stress test. Preoperative evaluation for colonoscopy and uterine D&C: She can proceed at low to intermediate cardiac risk. She can hold Eliquis 2 days prior to the procedures and resume Eliquis afterwards. I have refilled most of her cardiac medications. I will plan on seeing her in follow-up in 6 months. Follow up in about 6 months (around 05/07/2025). Moni Roberson MD PROGRESS Observed: 11/07/2024 9:45 AM Status: COMPLETED Source: [facility] Cardiology - [facility] Subjective Saeed Sarabia is a 84 y.o. year old female patient being seen for 9 mo follow up CAD, CHF, PAF, and hypertension. She needs clearance for colonoscopy scheduled 11/13/2024 at [facility] with Dr. Davis. Patient also states she needs clearance for D&C at [facility] for uterine polyp. Denies chest pain, SOB, [...] Behavior is cooperative. Judgment: Judgment normal. Allergies Allergies Allergen Reactions Morphine Nausea Only and GI intolerance Medications Current Outpatient Medications: apixaban (Eliquis) 5 mg tablet, Take 1 tablet (5 mg) by mouth in the morning and at bedtime., Disp: 180 tablet, Rfl: 3 bumetanide (Bumex) 1 mg tablet, Take 1 tablet (1 mg) by mouth if needed (leg swelling and dyspnea)., Disp: 90 tablet, Rfl: 3 glipiZIDE (Glucotrol) 5 mg tablet, Take 1 tablet by mouth in the morning and at bedtime., Disp: , Rfl: metFORMIN (Glucophage) 1,000 mg tablet, Take 1 tablet by mouth in the morning and at bedtime., Disp: , Rfl: pantoprazole (ProtoNix) 40 mg EC tablet, Take 1 tablet (40 mg) by mouth before breakfast and before evening meal for 196 doses. Do not crush, chew, or split., Disp: 60 tablet, Rfl: 3 bisacodyl (Dulcolax) 5 mg EC tablet, Do not crush, chew, or split. Use as directed for colonoscopy prep. Follow Physician's instructions., Disp: 4 tablet, Rfl: 0 ezetimibe (Zetia) 10 mg tablet, Take 1 tablet (10 mg) by mouth once daily as directed., Disp: 90 tablet, Rfl: 3 lisinopril 20 mg tablet, Take 1 tablet (20 mg) by mouth once daily as directed., Disp: 90 tablet, Rfl: 3 metoprolol succinate XL (Toprol-XL) 100 mg 24 hr tablet, Take 1 tablet (100 mg) by mouth once daily as directed., Disp: 90 tablet, Rfl: 3 nitroglycerin (Nitrostat) 0.4 mg SL tablet, Place 1 tablet (0.4 mg) under the tongue every 5 (five) minutes if needed for chest pain., Disp: 25 tablet, Rfl: 3 polyethylene glycol (Glycolax) 17 gram/dose powder, Use as directed for colonoscopy prep. Follow Physician's instructions., Disp: 238 g, Rfl: 0 rosuvastatin (Crestor) 5 mg tablet, Take 1 tablet (5 mg) by mouth at bedtime., Disp: 90 tablet, Rfl: 3 spironolactone (Aldactone) 25 mg tablet, TAKE 1/2 (ONE-HALF) OF A TABLET BY MOUTH EVERY DAY, Disp: 45 tablet, Rfl: 3 Recent Labs Blood testing 10/15/2024: Hemoglobin 13.2, platelets 239, potassium 4.8, BUN 15, creatinine 0.92, EGFR 58, LFTs normal. blood testing 08/25/2023: Hemoglobin 13.6, platelets 302, potassium 4.3, BUN 15, creatinine 0.73, EGFR more than 60, hemoglobin A1c 6.0, LFTs normal, triglycerides 104, cholesterol 133, LDL 57, HDL 55, TSH 0.105, free T4 normal, free T3 normal. blood testing 08/15/2022: Potassium 4.7, BUN 15, creatinine 0.73, EGFR more than 60, LFTs normal, cholesterol 128, HDL 48, triglycerides 94, LDL 60, TSH 0.219, free T32.11, hemoglobin A1c 6.4. Blood testing 12/16/2019: Hemoglobin 14.1, platelets 253, potassium 4.1, creatinine 0.97, BUN 19. Lipid profile 06/11/2019: Cholesterol 157, HDL 48, LDL 80, triglycerides 142. Blood testing 12/15/2017: normal renal function and electrolytes. Blood testing 06/14/2018: normal BMP, LDL 91, TG 152. Imaging and other tests ECG 09/17/2024: Sinus rhythm, left bundle branch block. Echocardiogram 02/15/2024: Mild concentric left ventricular hypertrophy with normal systolic function. LVEF is 55 to 60%. Normal right ventricular size and systolic function. No significant valvular dysfunction. Normal right-sided pressures. Mild to moderate biatrial dilatation. ECG 03/28/2022: NORMAL SINUS RHYTHM WITH SINUS ARRHYTHMIA NONSPECIFIC ST ABNORMALITY ABNORMAL ECG EKG 12/16/2019: Sinus rhythm. Cardiac catheterization 07/11/2016: 1. Coronary artery disease. 2. A 70% sequential stenosis in the mid right PDA. 3. Patent previously placed mid LAD stent. 4. Mild disease in the proximal LAD, proximal right coronary artery, left main and mid circumflex vessel (20% at each location). 5. No evidence of aortic stenosis. 6. Severely elevated left filling pressures. RODRIGUEZ guided cardioversion 07/11/2016: Global left ventricular systolic function is normal. The left atrium appears enlarged. The left atrial appendage is monolobular. No thrombus in left appendage. Mild mitral regurgitation. Mild atherosclerotic plaque is seen in the aorta. No intracardiac shunt by agitated saline injections. Biphasic cardioversion was performed at 360 J, the patient was converted to sinus rhythm Assessment/Plan Diagnoses and all orders for this visit: 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 - ezetimibe (Zetia) 10 mg tablet; Take 1 tablet (10 mg) by mouth once daily as directed. - metoprolol succinate XL (Toprol-XL) 100 mg 24 hr tablet; Take 1 tablet (100 mg) by mouth once daily as directed. - rosuvastatin (Crestor) 5 mg tablet; Take 1 tablet (5 mg) by mouth at bedtime. - nitroglycerin (Nitrostat) 0.4 mg SL tablet; Place 1 tablet (0.4 mg) under the tongue every 5 (five) minutes if needed for chest pain. Preop cardiovascular exam Chronic diastolic congestive heart failure (CMS/HCC) Primary hypertension - lisinopril 20 mg tablet; Take 1 tablet (20 mg) by mouth once daily as directed. - spironolactone (Aldactone) 25 mg tablet; TAKE 1/2 (ONE-HALF) OF A TABLET BY MOUTH EVERY DAY Paroxysmal atrial fibrillation (CMS/HCC) LBBB (left bundle branch block) This is an 84-year-old woman with history of coronary disease status post stenting in the past, paroxysmal atrial fibrillation, hypertension and chronic diastolic heart failure. At this time, she seems to be doing well, She has no symptoms of angina or heart failure. NYHA class I. She is in sinus rhythm by exam. Continue Eliquis. No bleeding. Chronic diastolic heart failure: she is in good volume status. Continue current diuretic therapy with as needed Bumex. Recent blood testing that I reviewed shows renal function to be normal. Her blood pressure is elevated. I asked her to monitor blood pressure at home and call me back with readings so we can make adjustments as needed if the systolic blood pressure is consistently above 130 mmHg. Her ECG in September 2024 showed sinus rhythm with left bundle branch block. The left bundle branch block appears to be a new finding for her as it was not present on the most recent ECG in 2021. I am not sure when she developed the bundle branch block. She has no angina and no heart failure symptoms. Her echocardiogram in January 2024 showed normal ventricular and valvular function. At this time we will continue to manage her coronary artery disease medically. I do not think that we need to proceed with further testing such as a stress test. Preoperative evaluation for colonoscopy and uterine D&C: She can proceed at low to intermediate cardiac risk. She can hold Eliquis 2 days prior to the procedures and resume Eliquis afterwards. I have refilled most of her cardiac medications. I will plan on seeing her in follow-up in 6 months. Follow up in about 6 months (around 05/07/2025). Moni Roberson MD OFFICE VISIT Observed: 11/07/2024 9:45 AM Status: COMPLETED Source: [facility] [id number] Saeed Sarabia Saad 1940 F Date Provider Department Center 11/07/2024 [facility]I ROBERSON [facility] Family History Problem Relation Age of Onset Heart attack Mother Coronary artery disease Mother Heart attack Father Coronary artery disease Father Multiple sclerosis Sister Family Status - Relation Status Age at Mother Father Sister Level of Service:258[address] [place] OFFICE/OUTPATIENT ESTABLISHED MOD MDM 30 MIN CNPN Observed: 11/07/2024 12:00 AM Status: COMPLETED Source: [facility] Telephone (OGFVWE) CORNELLSAEED Nash ([id number]) 1940 F Date Time Provider Department 11/07/24 LUCIANA GREEN OGFVWE During your visit today, we recorded the following information about you: Sabine Wang 11/07/2024 4:33 PM Signed [facility] [place] office called to give update from office [...] of endometrium [R93.5] 10/29/2024 Encounter Status:Closed by SABINE WANG on 11/14/24 CORINNA Observed: 11/05/2024 12:00 AM Status: COMPLETED Source: [facility] Telephone (OGFVWE) SAEED SARABIA ([id number]) 1940 F Date Time Provider Department 11/05/24 LUCIANA GREEN OGFVWE During your visit today, we recorded the following information about you: Paradise Rashid RN 11/05/2024 11:19 AM Signed ----- Message from Luciana Green DO sent at 11/04/2024 4:08 PM EST ----- Regarding: chad Zelaya, Can you let this patient or her know that 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 [employer] let me message him due to him being at [place] but we can see things in care everywhere. Thanks, Paradise Kowalski RN 11/05/2024 11:[address] to patient who was identified by name and . Reviewed/Discussed DO Manpreet message in detail. Pt verbalized understanding and agreed with the plan. No questions or other concerns at this time. Paradise Rashid RN Allergies As of Date: 11/05/2024 [...] of endometrium [R93.5] 10/29/2024 Encounter Status:Closed by PARADISE RASHID on 11/05/24 PROGRESS Observed: 11/04/2024 9:26 AM Status: COMPLETED Source: [facility] ID: [id number] Author: LUCIANA GREEN, DO Service: ? Author [...] OB History No obstetric history on file. Testing Manager History LMP: Postmenopausal Age at Menarche: Age at First : Age at Menopause: Testing Manager History Comments: Sexual Activity: Not Currently; [...] well as surgical risks of DVT, PE, DE, . All questions and concerns were addressed. Pt is willing to accept a blood transfusion in the case of excessive blood loss. She is agreeable to Exam under anesthesia, operative hysteroscopy, dilation and curettage, polypectomy, possible blood transfusion and informed consent was obtained. - Will need cardiology clearance, eliquis held. Will attempted to reach out to Dr. Roberson to make him aware. Pt has an appointment with him in the coming weeks. Orders: SURGICAL REQUEST - ELECTIVE (05/2020) Luciana Green DO Medical Decision Making: Problems: Moderate: New problem with uncertain prognosis Risk: Moderate: Decision on minor surgery w/ risk factors Medical Decision Making Level: 4 - Moderate CNOV Observed: 11/04/2024 9:00 AM Status: COMPLETED Source: [facility] Office Visit (OGFVWE) SAEED SARABIA ([id number]) 1940 F Date Time Provider Department 11/04/24 9:00 AM LUCIANA GREEN OGFVWE During your visit today, we recorded the following information about you: Pulse Blood pressure Weight Height 80/minute 160/82 70.5 kg 1.676 m Luciana Green DO 11/04/2024 4:11 PM Signed Saeed Sarabia [...] OB History No obstetric history on file. Testing Manager History LMP: Postmenopausal Age at Menarche: Age at First : Age at Menopause: Testing Manager History Comments: Sexual Activity: Not Currently; [...] well as surgical risks of DVT, PE, DE, . All questions and concerns were addressed. Pt is willing to accept a blood transfusion in the case of excessive blood loss. She is agreeable to Exam under anesthesia, operative hysteroscopy, dilation and curettage, polypectomy, possible blood transfusion and informed consent was obtained. - Will need cardiology clearance, eliquis held. Will attempted to reach out to Dr. Roberson to make him aware. Pt has an appointment with him in the coming weeks. Orders: SURGICAL REQUEST - ELECTIVE (05/2020) Luciana Green DO Medical Decision Making: Problems: Moderate: New problem with uncertain prognosis Risk: Moderate: Decision on minor surgery w/ risk factors Medical Decision Making Level: 4 - Moderate Luciana Green DO 11/04/2024 4:11 PM Edited - Recommended hysteroscopic removal of polyp and endometrial sampling. - Risks, benefits, and alternatives discussed with the patient. Risks including, but not limited to: bleeding, infection, injury to nearby structures (highest risk to bowel, bladder), uterine perforation as well as surgical risks of DVT, PE, DE, . All questions and concerns were addressed. Pt is willing to accept a blood transfusion in the case of excessive blood loss. She is agreeable to Exam under anesthesia, operative hysteroscopy, dilation and curettage, polypectomy, possible blood transfusion and informed consent was obtained. - Will need cardiology clearance, eliquis held. Will attempted to reach out to Dr. Roberson to make him aware. Pt has an appointment with him in the coming weeks. Orders: SURGICAL REQUEST - ELECTIVE (05/2020) Allergies As of Date: 11/04/2024 Noted Allergy Reaction MORPHINE 09/17/2024 8 - GI Upset Date Reviewed: 11/04/2024 Reviewed by: Luciana Green DO - Fully Assessed Reason for Visit: surgical consult [Other] Cmt: Thickened endometrium / possible EMB Primary Visit Diagnosis:Endometrial polyp [N84.0] Order(s):SURGICAL REQUEST - ELECTIVE (05/2020) [[id number]] Order #: [id number]: 1 Prescriptions as of 11/04/2024 - cyanocobalamin (VITAMIN B-12) 1,000 mcg tab [...] once daily. Problem List As Of Date 11/04/2024 Noted Resolved Spinal stenosis [M48.00] 03/28/2022 Right [...] of endometrium [R93.5] 10/29/2024 Encounter Status:Closed by LUCIANA GREEN on 11/04/24 CNPN Observed: 10/30/2024 12:00 AM Status: COMPLETED Source: [facility] Telephone (coJuvo) SAEED SARABIA ([id number]) 1940 F Date Time Provider Department 10/30/24 TAHIR CENTENO coJuvo During your visit today, we recorded the following information about you: Tahir Centeno MD 10/30/2024 2:21 PM Signed Spoke with patient's Cecilia (patient gave consent to speak with him [...] endometrial curetting is recommended if clinical indicated. Tahir Centeno MD Allergies As of Date: 10/30/2024 Noted Allergy Reaction MORPHINE 09/17/2024 8 - GI Upset Date Reviewed: 10/29/2024 Reviewed by: Tahir Centeno MD - Fully Assessed Prescriptions as [...] of endometrium [R93.5] 10/29/2024 Encounter Status:Closed by TAHIR CENTENO on 10/30/24 PROGRESS Observed: 10/29/2024 1:24 PM Status: COMPLETED Source: [facility] ID: [id number] Author: BRENDON DORSEY MD Service: ? Author Type: Physician Type: Progress Notes Filed: 10/29/2024 15:53 Note Text: [facility] New Patient Evaluation Date: October 29, 2024 Patient Name: Saeed Sarabia The [facility] was asked by to evaluate Saeed Sarabia. Our recommendations of care will be communicated by shared medical record. Reason for Evaluation/Chief complaint: memory concerns Accompanied by: SUBJECTIVE: HPI: Saeed Sarabia is a 84 year old Right handed female who presents to the [facility] for an initial evaluation. Patient has [...] summarized in this note. Functional Evaluation: B-ADLs: (I=independent,A=assistance,D=dependent) ?Bathing: I , Dressing: I , Toileting: [...] Answering questions appropriately. No dysarthria or hypophonia. [place] Cognitive Assessment (MoCA) Version 8.1 Total Score: 830 Visuospatial/Executive: 15 Namin/3 Attention: 0/6 Language: 0/3 Abstraction: 1/2 Delayed Recall: 05 Orientation: 12/12 Education less than or equal to 12th [...] She was recently admitted to [facility] and then at [facility] for Altered mental status. During first [...] which included preparing to see the patient, [id number]-hr-gots patient care, completing clinical documentation, obtaining and/or [...] referring provider defined for this encounter. PCP: Kirstin Miller, STOCK SPECULATOR ([facility]) [address] [place] [address] Patient Entered Data: Patient-Reported No data to displayActivities of Daily Living (ADL) No data to displayPROMIS-10 No data to displayPHQ-9 No data to display(0-4) minimal depression (5-9) mild depression (10-14) moderate depression (15-19) moderately severe depression (20-27) severe depression Full History of PHQ-9 Scores No data to displaySleep No data to displayNo data to displayCaregiver-Reported No data to displayDementia Severity Rating Scale (DSRS) No data to display CNOV Observed: 10/29/2024 12:30 PM Status: COMPLETED Source: [facility] Office Visit ([facility]) CORNELLSAEED Nash ([id number]) 1940 F Date Time Provider Department 10/29/24 12:30 PM BRENDON DORSEY [facility] During your visit today, we recorded the following information about you: Brendon Dorsey MD 10/29/2024 3:53 PM Signed [facility] New Patient Evaluation Date: October 29, 2024 Patient Name: Saeed Sarabia The [facility] was asked by to evaluate Saeed Sarabia. Our recommendations of care will be communicated by shared medical record. Reason for Evaluation/Chief complaint: memory concerns Accompanied by: SUBJECTIVE: HPI: Saeed Sarabia is a 84 year old Right handed female who presents to the [facility] for an initial evaluation. Patient has [...] summarized in this note. Functional Evaluation: B-ADLs: (I=independent,A=assistance,D=dependent) ?Bathing: I , Dressing: I , Toileting: [...] She was recently admitted to [facility] and then at [facility] for Altered mental status. During first [...] which included preparing to see the patient, vqey-vt-loaj patient care, completing clinical documentation, obtaining and/or reviewing separately obtained history, performing a medically appropriate examination, counseling and educating the patient/family/caregiver, ordering medications, tests, or procedures, communicating with other HCPs (not separately reported), and independently interpreting results (not separately reported). Voice recognition software was used to compose this office note. Please excuse any unintended typographical errors. Brendon Dorsey MD Geriatric Medicine [facility] 10/29/2024 1:25 PM CC: Referring Physician: No referring provider defined for this encounter. PCP: Kirstin Miller, STOCK SPECULATOR ([facility]) [address] [place] [address] Patient Entered Data: Patient-Reported No data to [...] Rating Scale (DSRS) No data to display Allergies As of Date: 10/29/2024 Noted Allergy Reaction MORPHINE 09/17/2024 8 - GI Upset Date Reviewed: 10/29/2024 Reviewed by: Tahir Centeno MD - Fully Assessed Primary Visit Diagnosis:Delirium due to another medical condition [F05] Other Visit Diagnoses:Cognitive decline [R41.89] History of UTI [Z87.440] Vitamin B12 deficiency [E53.8] Prescriptions as of 10/29/2024 - cyanocobalamin (VITAMIN B-12) 1,000 mcg tab [...] once daily. Problem List As Of Date 10/29/2024 Noted Resolved Spinal stenosis [M48.00] 03/28/2022 Right [...] [F05] 10/18/2024 Vitamin B12 deficiency [E53.8] 10/21/2024 Level of Service: OFFICE/OUTPATIENT NEW HIGH MDM 60 MINUTES [48216] Additional E/M codes: VISIT CPLX INHERENT EANDM ASSOC WITH MED * LOS History for Encounter Level of Service: OFFICE/OUTPATIENT NEW MODERATE MDM 45 MINUTES[18336] Date AND Time: 10-29-2024 3:50 PM Recorded by User: BRENDON DORSEY Encounter Status:Closed by BRENDON DORSEY on 10/29/24 SURGICAL PATHOLOGY Collected: 10:40 AM Status: F Source: [facility] Order Comment: Specimen Type : TISSUE SPECIMEN Ordering Facility: [facility] Address: [address] [place] [address] TYPE CODE TESTS RESULT OUT OF RANGE REFERENCE UNITS PATHOLOGY [id number] CASE REPORT Result Comment: Surgical Pat hology Report Case: [id number] Authorizing Provider: Tahir Centeno MD Collected: 10/29/2024 10:40 AM Ordering Location: OB/Gynecology Received: 10/29/2024 11:58 AM Pathologist: Sabina Santiago MD Specimen: Endometrium, Biopsy, endonetrium PATHOLOGY [id number] FINAL DIAGNOSIS Result Comment: A. Endometri um, biopsy: - Superficial strips of inactive endometrium, see comment. OLOGY [id number] DIAGNOSIS COMMENT Sections show limited superficial strips of inactive endometrium without intact underlying stroma. There is no evidence of malignancy in this specimen. An endometrial curetting is recommended if clinical indicated. PATHOLOGY [id number] GROSS DESCRIPTION Result Comment: A. Endometri um, Biopsy Received in formalin are multiple frank, soft feathery segments of tissue mixed with mucinous material aggregating to 0.3 x 0.1 x 0.1 cm. Totally submitted in one cassette. May not survive processing. Gross examination performed at [facility], [address] [place] [address] 10/29/2024 5:17 PM PATHOLOGY CDX2 CLINICAL HISTORY thickened endometrium on CT and pelvic ultrasound, large polyp prolapsing out of the cervix appears to be attached to endometrial polyp. growt, no bleeding PATHOLOGY [facility] FINAL PERFORMING LAB Result Comment: Diagnostic i nterpretation performed at: [facility], [address] [place] [address], [place] [address] CLIA# [id number] Drafter Commercial: Liam Naik MD Performed By: #### S #### [facility] CLIA [id number] [address] [place] [address] [place] CNOV Observed: 10/29/2024 10:00 AM Status: COMPLETED Source: [facility] Office Visit ([facility]) SAEED SARABIA ([id number]) 1940 F Date Time Provider Department 10/29/24 10:[address] [facility] During your visit today, we recorded the following information about you: Pulse Blood pressure Weight Height 66/minute 155/73 68 kg 1.676 m Tahir Centeno MD 10/29/2024 8:34 PM Signed Saeed Sarabia is a 84 year old No obstetric history on file. here for SIS. Referred by: Luciana Green [address] [place] [address] [facility] [address] Chief Complaint: Thickened endometrium Endometrial Biopsy: No [...] Plan of Care Visit completed when applicable. Tahir Centeno MD PROCEDURE: Saline Infusion Sonohysterogram and [...] for results See ViewPoint for procedure results. Tahir Centeno MD Ultrasound Tahir Centeno MD 10/29/2024 10:34 AM Signed SALINE [...] the office at any time. Referring Provider: LUCIANA GREEN [[id number]] Allergies As of Date: 10/29/2024 Noted Allergy Reaction MORPHINE 09/17/2024 8 - GI Upset Date Reviewed: 10/29/2024 Reviewed by: Tahir Centeno MD - Fully Assessed Reason for Visit: SIS/EMB [Other] Primary Visit Diagnosis:Thickened endometrium [R93.89] Other Visit Diagnoses:Endometrial polyp [N84.0] Endocervical polyp [N84.1] Abnormal ultrasound of endometrium [R93.5] Order(s):SONOHYSTEROGRAPHY (SIS) [facility] [[id number]] Order #: [id number]. #:[id number]: 1 SURGICAL PATHOLOGY [YUS5300] Order #: [id number]. #:[id number] Prescriptions as of 10/29/2024 - cyanocobalamin (VITAMIN B-12) 1,000 mcg tab [...] once daily. Problem List As Of Date 10/29/2024 Noted Resolved Spinal stenosis [M48.00] 03/28/2022 Right [...] 10/29/2024 Abnormal ultrasound of endometrium [R93.5] 10/29/2024 Other instructions from your clinician: SALINE INFUSION SONOGRAPHY (SIS) is an office [...] questions, call the office at any time. Encounter Status:Closed by TAHIR CENTENO on 10/29/24 PROGRESS Observed: 10/29/2024 9:26 AM Status: COMPLETED Source: [facility] ID: [id number] Author: TAHIR CENTENO MD Service: ? Author Type: Physician Type: Progress Notes Filed: 10/29/2024 20:34 Note Text: Saeed Sarabia is a 84 year old No obstetric history on file. here for SIS. Referred by: Luciana Green [address] [address] [facility] [address] [facility] [address] Chief Complaint: Thickened endometrium Endometrial Biopsy: No [...] Plan of Care Visit completed when applicable. Tahir Centeno MD PROCEDURE: Saline Infusion Sonohysterogram and [...] for results See ViewPoint for procedure results. Tahir Centeno MD Ultrasound PROGRESS Observed: 10/24/2024 1:34 PM Status: COMPLETED Source: [facility] ID: [id number] Author: LUCIANA GREEN DO Service: ? Author [...] OB History No obstetric history on file. Testing Manager History LMP: Age at Menarche: Age at First : Age at Menopause: Testing Manager History Comments: Sexual Activity: Not Currently; [...] discussed with the Patient or Patient's Authorized Refrigeration Operator. As applicable, any other physician, advance practice provider, medical student, or other health professional student that will be observing or involved in the sensitive examination for educational or training purposes was discussed with the Patient or Authorized Refrigeration Operator. The Patient or Authorized Refrigeration Operator has agreed to proceed with the sensitive [...] which included preparing to see the patient, [id number]-ie-evso patient care, completing clinical documentation, obtaining and/or reviewing separately obtained history, and counseling and educating the patient/family/caregiver. CNOV Observed: 10/24/2024 1:30 PM Status: COMPLETED Source: [facility] Office Visit ([facility]) SAEED [id number]) 1940 F Date Time Provider Department 10/24/24 1:30 PM LUCIANA GREEN [facility] During your visit today, we recorded the following information about you: Pulse Blood pressure Weight Height 65/minute 120/70 70.3 kg 1.651 m Aubrie Young MA 10/24/2024 3:36 PM Signed Patient Admitting Clerk offered: Patient declines. Luciana Green, 10/24/2024 3:36 PM Signed Saeed Saad Sarabia is a 84 year old female [...] OB History No obstetric history on file. Testing Manager History LMP: Age at Menarche: Age at First : Age at Menopause: Testing Manager History Comments: Sexual Activity: Not Currently; [...] discussed with the Patient or Patient's Authorized Refrigeration Operator. As applicable, any other physician, advance practice provider, medical student, or other health professional student that will be observing or involved in the sensitive examination for educational or training purposes was discussed with the Patient or Authorized Refrigeration Operator. The Patient or Authorized Refrigeration Operator has agreed to proceed with the sensitive [...] which included preparing to see the patient, [id number] patient care, completing clinical documentation, obtaining and/or reviewing separately obtained history, and counseling and educating the patient/family/caregiver. Allergies As of Date: 10/24/2024 Noted Allergy Reaction MORPHINE 09/17/2024 8 - GI Upset Date Reviewed: 10/24/2024 Reviewed by: Luciana Green DO - Fully Assessed Reason for Visit: ED Follow-up [821] Cmt: Endometrial thickening Was in for stomach pain and confusion Primary Visit Diagnosis:Thickened endometrium [R93.89] Order(s):SONOHYSTEROGRAPHY (SIS) [facility] [[id number]] Order #: [id number]: 1 FUTURE ENDOMETRIAL BIOPSY [[id number]] Order #: [id number] Prescriptions as of 10/24/2024 - therapeutic multivitamin (THERA VITAMIN) tablet Take [...] once daily. Problem List As Of Date 10/24/2024 Noted Resolved Spinal stenosis [M48.00] 03/28/2022 Right [...] [F05] 10/18/2024 Vitamin B12 deficiency [E53.8] 10/21/2024 Medications Discontinued During This Encounter Prescriptions - dextrose (TRUEPLUS) 15 gram/32 mL oral gel (Discontinued) Reported on 10/16/2024 - gabapentin (NEURONTIN) 100 mg capsule (Discontinued) Reported on 10/16/2024 Encounter Status:Closed by LUCIANA GREEN on 10/24/24 PROGRESS Observed: 10/24/2024 1:15 PM Status: COMPLETED Source: [facility] HNO ID: [id number] Author: AUBRIE YOUNG MA Service: ? Author Type: Oracle Business Intelligence Developer Type: Progress Notes Filed: 10/24/2024 15:36 Note Text: Patient Admitting Clerk offered: Patient declines. ORDERS ONLY Observed: 10/23/2024 12:00 AM Status: COMPLETED Source: [facility] [id number] Saeed Sarabia 1940 F Date Provider Department Center 10/23/2024 Gerald9-IRMA, MALISSA CUEVAS OR RANJANA Family History Problem Relation Age of Onset Heart attack Mother Coronary artery disease Mother Heart attack Father Coronary artery disease Father Multiple sclerosis Sister Family Status - Relation Status Age at Mother Father Sister PROGRESS Observed: 10/21/2024 6:41 PM Status: COMPLETED Source: [facility] HNO ID: [id number] Author: ROLANDA CHAPARRO APRN.CNP Service: General Internal Medicine Author Type: Nurse Practitioner Type: Progress Notes Filed: 10/30/2024 07:40 Note Text: Documentation Query Please clarify the Type of encephalopathy Dementia with Encephalopathy, please specify type metabolic This document will become part of the patient's medical record. CNDS Observed: 10/21/2024 4:24 PM Status: COMPLETED Source: [facility] HNO ID: [id number] Author: GIN THOMPSON MD Service: General Internal Medicine Author Type: Nurse Practitioner Type: Discharge Summary Filed: 10/21/2024 21:53 Note Text: Attestation signed by Gin Thompson MD at 10/21/2024 9:53 PM Jay [...] AND MEDICAL TEAM: My Main Hospital Doctor: Gin Thompson MD Primary Care Provider: Kirstin Miller CNP, CNP My Medical Team Members: Treatment Team: Attending Provider: Gin Thompson MD Nurse Practitioner: Rolanda Chaparro APRN.CNP [...] further evaluation. 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 Cholelithiasis. 4. [...] and unintentional weight loss. Recent admission in [place] for similar symptoms with negative CTH and [...] WNL - Follow up with neurology brain health as an outpatient - Follow up [...] hospital problems. * Treatment Team: Attending Provider: Gin Thompson MD Nurse Practitioner: Rolanda Chaparro APRN.STOCK SPECULATOR Transitions of Care Critical Issues: SPECIALIST FOLLOW-UP: [facility]rology [facility], Gastroenterology LABS AND PROCEDURES PENDING AT DISCHARGE: Biopsy Results (EGD) INCIDENTAL OR ACTIONABLE FINDING (Last Refresh: 10/21/2024 4:42 PM) Test(s): CT ABD/PEL W IVCON FOLLOW-UP APPOINTMENTS ALREADY SCHEDULED WITH A [facility] PROVIDER: No future appointments. ALLERGIES Allergen Reactions Morphine GI Upset DISCHARGE MEDICATION: Medication List START taking these medications therapeutic multivitamin tablet Commonly known as: THERA VITAMIN Take 1 tablet by mouth once daily. CONTINUE taking these medications acetaminophen 325 mg tablet Commonly known as: TYLENOL 2 tablets by ORAL/FEEDING TUBE route every 4 hours as needed for pain or fever (specify). apixaban 5 mg tab(s) Commonly known as: ELIQUIS Take 1 tablet by mouth twice daily. ezetimibe 10 mg tablet Commonly known as: ZETIA glipiZIDE 5 mg tablet Commonly known as: GLUCOTROL lisinopril 5 mg tablet Commonly known as: ZESTRIL metFORMIN 500 mg tablet Commonly known as: GLUCOPHAGE Take 1 tablet by mouth twice daily with meals. metoprolol succinate ER 100 mg Commonly known as: TOPROL XL pantoprazole DR 40 mg tablet Commonly known as: PROTONIX rosuvastatin 5 mg tablet Commonly known as: CRESTOR spironolactone 25 mg tablet Commonly known as: ALDACTONE STOP taking these medications docusate sodium 100 mg capsule Commonly known as: COLACE lidocaine 4 % patch Commonly known as: SALONPAS methocarbamol 750 mg tablet Commonly known as: ROBAXIN ASK your doctor about these medications bumetanide 1 mg tablet Commonly known as: BUMEX dextrose 15 gram/32 mL oral gel Commonly known as: TRUEPLUS Take 32 mL by mouth as needed. gabapentin 100 mg capsule Commonly known as: NEURONTIN Where to Get Your Medications You can get these medications from any pharmacy You don't need a prescription for these medications therapeutic multivitamin tablet Physical Exam: GEN: Alert, cooperative, in NAD; HEENT: Normocephalic, atraumatic, mmm; CVS: RR, S1 S2, no m/r/g; Pulm: CTAB, no wheeze; Abd.: Soft, NT/ND, +BS; Ext: R foot drop, no calf tenderness; Neuro: Alert, cooperative, FC x 4; Psych: Mood and affect WNL; Additional health information I need to know after I leave the hospital: No additional instructions. The patient's risk for 30-day readmission is determined using the following contributing factors: Pt variables contributing to increased readmission risk: 23 Active Medication Orders 11 Most Recent BUN Result 9.7 First Resulted Calcium During Admission 2 Number of Previous ED Visits (6 mos.) 1 Previous ED Visit (6 mos.)? 1 Insurance - Medicare 1 Discharge Disposition - Home 1 Barriers to Health Literacy Identified Plan of care discussed with Provider, RN, Patient I spent a total of 56 minutes on the date of the service which included preparing to see the patient, [id number]-[id number] patient care, completing clinical documentation, obtaining and/or reviewing separately obtained history, performing a medically appropriate examination, counseling and educating the patient/family/caregiver, ordering medications, tests, or procedures, communicating with other HCPs (not separately reported), independently interpreting results (not separately reported), communicating results to the patient/family/caregiver, and care coordination (not separately reported). SIGNATURE: Rolanda Chaparro APRN.CNP DATE: October 21, 2024 TIME: 4:25 PM PLAN OF CARE Observed: 10/21/2024 2:27 PM Status: COMPLETED Source: [facility] HNO ID: [id number] Author: KIANNA CHAVEZ APRN.CNP Service: Gastroenterology Author Type: Nurse Practitioner Type: Plan of Care Filed: 10/21/2024 14:32 Note Text: DEPARTMENT OF GASTROENTEROLOGY AND HEPATOLOGY [facility] INPATIENT VISIT DATE AND TIME 10/21/24 [...] and re-consult as needed. SIGNATURE: Kianna Chavez APRN.STOCK SPECULATOR PAGER/CONTACT #: [phone] CONSULT PROG Observed: 10/21/2024 2:25 PM Status: COMPLETED Source: [facility] HNO ID: [id number] Author: DAI BHATT APRN.LEXI Service: Psychiatry Author [...] tab(s) (HALDOL) 2 mg ORAL AT BEDTIME Glenroy Crowder MD 2 mg at 10/20/24 2130 haloperidol 0.5 mg tab(s) (HALDOL) 0.5 mg ORAL DAILY PRN Glenroy Crowder MD ezetimibe 10 mg tab(s) (ZETIA) 10 mg ORAL DAILY Glenroy Crowder MD 10 mg at 10/21/24 1339 lisinopril 5 mg tab(s) (ZESTRIL) 5 mg ORAL DAILY Glenroy Crowder MD 5 mg at 10/20/242128 metoprolol succinate ER 100 mg tab(s) (TOPROL XL) 100 mg ORAL DAILY Glenroy Crowder MD 100 mg at 10/20/242131 rosuvastatin 5 mg tab(s) (CRESTOR) 5 mg ORAL DAILY Glenroy Crowder MD 5 mg at 10/21/241338 spironolactone 12.5 mg tab(s) (ALDACTONE) 12.5 mg ORAL DAILY Glenroy Crowder MD 12.5 mg at 10/21/241338 metFORMIN 500 mg tab(s) (GLUCOPHAGE) 500 mg ORAL BID w MEALS Glenroy Crowder MD 500 mg at 10/21/241338 pantoprazole DR 40 mg tab(s) (PROTONIX) 40 mg ORAL BID AC (0600/1600) Glenroy Crowder MD 40 mg at 10/21/24611 NaCl 0.9% iv flush bag 20 mL INTRAVENOUS PRN Glenroy Crowder MD senna-docusate 8.6-50 mg 1 tablet (SENNA-S) 1 tablet ORAL BID PRN Glenroy Crowder MD melatonin 6 mg tab(s) 6 mg ORAL AT BEDTIME PRN Glenroy Crowder MD 6 mg at 10/19/242020 ondansetron (PF) 4 mg injection (ZOFRAN) 4 mg INTRAVENOUS q 6 H PRN Glenroy Crowder MD acetaminophen 500-1,000 mg tab(s) (TYLENOL) 500-1,000 mg ORAL q 6 H PRN Glenroy Crowder MD 500 mg at 10/20/242131 dextrose 40 % 15 g 15 g ORAL PRN Glenroy Crowder MD Or glucagon 1 mg injection 1 mg INTRAMUSCULAR PRN Glenroy Crowder MD Or dextrose 10% iv bolus 12.5 g INTRAVENOUS PRN Glenroy Crowder MD insulin lispro injection (rapid acting) (ADMElog) SUBCUTANEOUS w MEALS AND HS Glenroy Crowder MD 1 Units at 10/20/242126 Objective [...] Rigidity, Hyperreflexia, or Clonus. Moved Extremities Against [place]. Gait / Station: Unable to Examine: sitting in a chair at the bedside MENTAL STATUS EXAMINATION: Appearance: In hospital gown, well groomed, good eye contact, and sitting in chair at the bedside Behavior: Engaged readily, cooperative, appropriate. Psychomotor: No psychomotor agitation. Cognition: Level of Consciousness: Awake and alert. No fluctuation in wakefulness. Orientation: Person, Place, Time and Situation. Can tell me th outgoing and incoming presidents Memory: Intact Attention/Concentration: Fair Fund of Knowledge: Able to demonstrate [...] or plan. Insight: Recognized the presence of illness. Judgment: Appropriate. ASSESSMENT : Ms. Sarabia is an 84 yr old female who presented to the ED after episodes of staring and not responding to questions. She was disoriented and having abdominal pain and weight loss. She was seen by neurology and psychiatry who felt she was delirious with possible underlying neurocognitive disorder. Psychiatry started scheduled and prn haldol. Upon assessment she was oriented x3 and could discuss current events. She denied any psychiatric symptoms including suicidality. DIAGNOSIS: 1. Delirium, multifactorial PLAN: 1. Continue Haldol 2 mg QHS and can use haldol 0.5 mg daily prn for agitation ( medication is not intended for a mcfp) 2. Standard delirium recs Reorient Frequently Encourage Early Mobility when possible Encourage talking to patient prior to hands on care Prevent overstimulation Prevent Day night Reversal : Out of bed at least 3 times during the day. Can be sitting in chair or walking in unit with assistance or even sitting on bed : Curtains up from 8 am to 8 pm : At least 6 hours of uninterrupted sleep at night Avoid Benzodiazepines, Anticholinergics and antihistaminergics if possible/appropriate. Avoid Restraints : if needed utilize the least restrictive form : 1:1 hydrology professor <hand mitts< 2 point soft < 4 point soft < 2 point hard < 4 point hard Treat underlying cause Maintain K>4 and Mg >2 at all times SIGNATURE: Dai Bhatt APRN.CNP PATIENT NAME: Saede Sarabia DATE: October 21, 2024 TIME: 3:50 PM ANES POSTPROC EVAL Observed: 10/21/2024 12:59 PM Status: COMPLETED Source: [facility] HNO ID: [id number] Author: RAMIREZ SOLIS MD Service: Critical Care Author Type: Anesthesiologist Type: Anesthesia Postprocedure Evaluation Filed: 10/21/2024 12:59 Note Text: POST ANESTHESIA EVALUATION NOTE : 1940 Procedure Summary Date: 10/21/24 Room / Location: [facility] Endoscopy - ENDO Anesthesia Start: 1052 Anesthesia Stop: 1114 Procedure: EGD DIAGNOSTIC Diagnosis: (Dyspepsia, Unspecified) Scheduled Providers: Glenroy Crowder MD; Ramirez Solis MD; Cayla Edward APRN.FAST FOOD SALES ASSISTANT Responsible Provider: Ramirez Solis MD Anesthesia Type: [...] October 21, 2024 TIME: 12:59 PM CSN: [id number] SURGICAL PATHOLOGY Collected: 10:59 AM Status: F Source: [facility] Order Comment: Specimen Type : TISSUE SPECIMEN Ordering Facility: [facility] Address: [address] [place] [address] TYPE CODE TESTS RESULT OUT OF RANGE REFERENCE UNITS PATHOLOGY [id number] CASE REPORT Result Comment: Surgical Pat hology Report Case: [id number] Authorizing Provider: Glenroy Crowder MD Collected: 10/21/2024 10:59 AM Ordering Location: [facility] Received: 10/21/2024 12:39 PM Endoscopy - ENDO Pathologist: Ned Michel MD Specimens: A) - Small Bowel, Duodenum, Biopsy, Jar A, R/O Whipple's Disease B) - Stomach, Biopsy, Jar B R/O H.Pylori PATHOLOGY [id number] FINAL DIAGNOSIS Result Comment: A. Duodenum, biopsy: - Duodenal mucosa with no significant pathologic change. B. Stomach, biopsy: - Gastric antral and oxyntic-type mucosa with mild reactive epithelial changes and histologic features consistent with proton pump inhibitor use. - No intestinal metaplasia or morphologic evidence of Helicobacter pylori organisms. OLOGY [id number] GROSS DESCRIPTION Result Comment: A. Small Sheldon el, Duodenum, Biopsy Received in formalin are multiple pieces of frank, soft tissue aggregating to 1.2 x 0.2 x 0.2 cm. Totally submitted in one cassette. B. Stomach, Biopsy Received in formalin are multiple pieces of frank, soft tissue aggregating to 0.9 x 0.3 x 0.2 cm. Totally submitted in one cassette. Gross examination performed at [facility], [address] [place] [address] October 21, 2024 5:42 PM PATHOLOGY [facility] FINAL PERFORMING LAB Result Comment: Diagnostic i nterpretation performed at: [facility], [address] [place] [address], [place] [address] CLIA# [id number] Drafter Commercial: Liam Naik MD Performed By: #### S #### [facility] CLIA [id number] [address] [place] [address] [place] UPPER GI ENDOSCOPY Observed: 10/21/2024 10:40 AM Status: F Source: [facility] Gastrointestinal Endoscopy Patient Name: Saeed Sarabia Procedure Date: 10/21/2024 10:40 AM Date of : 1940 Admit Type: Inpatient Age: 84 Room: [place] [address] Gender: Female Note Status: Finalized Attending MD: Glenroy Crowder MD, [id number] Procedure: Upper GI endoscopy Indications: Dyspepsia Providers: Glenroy Crowder MD, Tatiana Barboza RN, Urvashi Pacheco [...] history and physical. Referring Physician: Ned Gonzales (patricia Cruz (Referring MD) Medicines: Monitored Anesthesia Care Complications: [...] antiplatelet agents. Procedure Code(s): --- Professional --- 20483, Esophagogastroduodenoscopy, flexible, transoral; with biopsy, single or multiple Diagnosis Code(s): --- Professional --- K31.89, Other diseases of stomach and duodenum R10.13, Epigastric pain CPT copyright 202 [employer]. All rights reserved. The codes documented in this report are preliminary and upon director of cardiology review may be revised to meet current compliance requirements. Attending Participation: I personally performed the entire procedure. Scope In: 10:59:20 AM Scope Out: 11:04:58 AM MD Glenroy Dumas MD 10/21/2024 11:15:51 AM This report has been signed electronically by Glenroy Crowder MD Number of Addenda: 0 Note Initiated On: 10/21/2024 10:40 AM Estimated Blood Loss: Estimated blood loss was minimal. ANES PRE-OP Observed: 10/21/2024 10:20 AM Status: COMPLETED Source: [facility] HNO ID: [id number] Author: RAMIREZ SOLIS MD Service: Critical Care Author Type: Anesthesiologist Type: Anesthesia Preprocedure Evaluation Filed: 10/21/2024 10:23 Note Text: ANESTHESIOLOGY DAY OF SURGERY NOTE : 1940 Procedure Information Date/Time: 10/21/24 1000 Scheduled providers: Glenroy Crowder MD; Ramirez Solis MD; Cayla Edward APRN.FAST FOOD SALES ASSISTANT Procedure: EGD DIAGNOSTIC Location: [facility] Endoscopy - ENDO Estimated body mass [...] of anesthesia and ongoing mental issues. Beta Gabbi Monitoring Plan Monitoring plan: standard ASA. Post [...] daily. (Patient not taking: Reported on 10/16/2024) ezetimibe (ZETIA) 10 mg tablet Take 10 [...] obtained within 48 hours of Surgery/Procedure. SIGNATURE: Ramirez Solis MD PATIENT NAME: Saeed Sarabia DATE: October 21, 2024 TIME: 10:20 AM CSN: [id number] NURSING PROG Observed: 10/21/2024 10:09 AM Status: COMPLETED Source: [facility] ID: [id number] Author: JOIE FUENTES RN Service: Nursing Author Type: Registered Nurse Type: Nursing Progress Note Filed: 10/21/2024 10:10 Note Text: PATIENT EDUCATION TOPIC: PROCEDURE / SURGERY: Pre Procedure Teaching: EGD PATIENT NAME: Saeed Sarabia PATIENT LOCATION: ENDO POOL/FV ENDO POOL READINESS TO LEARN [...] (RECOMMENDATION): None Electronically Signed By: Joie Fuentes HISTORY PHYSICAL Observed: 10/21/2024 8:01 AM Status: COMPLETED Source: [facility] HNO ID: [id number] Author: GLENROY CROWDER MD Service: Gastroenterology Author Type: Physician [...] out Whipple Disease. PROCEDURE(S) SCHEDULED FOR: EGD (Esophagogastroduodenoscopy) with or without biopsies, removal of polyps [...] organomegaly. Sedation Plan: MAC Additional Comments: None Glenroy Crowder MD COMP METAB 2000 PNL SERPL Collected: 11:56 PM Status: F Source: [facility] Order Comment: Specimen Type : BLOOD SPECIMEN Ordering Facility: [facility] Address: [address] [place] [address] TYPE CODE TESTS RESULT OUT OF RANGE REFERENCE UNITS LAB 2885-2(LOINC) Prot SerPl-mCnc 6.2 Low 6.3-8.0 g/dL LAB 1751-7(LOINC) Albumin SerPl-mCnc 3.5 Low 3.9-4.9 g/dL LAB 35421-8(LOINC) Calcium SerPl-mCnc 9.0 8.5-10.2 mg/dL LAB 1975-2(LOINC) Bilirub SerPl-mCnc 0.3 0.2-1.3 mg/dL LAB 6768-6(LOINC) ALP SerPl-cCnc 58 34-123 U/L LAB 1920-8(LOINC) AST SerPl-cCnc 20 13-35 U/L LAB 1742-6(LOINC) ALT SerPl-cCnc 16 7-38 U/L LAB 2345-7(LOINC) Glucose SerPl-mCnc 135 High 74-99 mg/dL Result Comment: The [place] Diabetes Association (ADA) provides guidance for cutoff [...] Standards of Medical Care in Diabetes 2016, [place] [employer]. Diabetes Care. 2016.39(Suppl 1). LAB 3094-0(LOINC) BUN SerPl-mCnc 11 7-21 mg/ dL LAB 2160-0(LOINC) Creat SerPl-mCnc 0.74 0.58-0.96 mg/dL LAB 2951-2(LOINC) Sodium SerPl-sCnc 137 136-144 mmol/L LAB 2823-3(LOINC) Potassium SerPl-sCnc 3.7 3.7-5.1 mmol/L LAB 2075-0(LOINC) Chloride SerPl-sCnc 99 98-107 mmol/L LAB 2028-9(LOINC) CO2 SerPl-sCnc 28 22-30 mmo l/L LAB 48113-5(LOINC) Anion Gap SerPl-sCnc 10 8-15 mmol/L LAB 32384-6(LOINC) Creatinine + eGFR Pnl SerPlBld 80 >=60 mL/min/1. 73m??? Result Comment: Estimated Gl omerular Filtration Rate (eGFR) is calculated using the 2020 CKD-EPI creatinine equation. This equation utilizes serum creatinine, sex, and age as parameters. The creatinine assay has traceable calibration to isotope dilution-mass spectrometry. Refer to KDIGO guidelines for clinical interpretation. In patients with unstable renal function, e.g. those with acute kidney injury, the eGFR may not accurately reflect actual GFR. Performed By: #### 06394-0 # ### [facility] CLIA [id number] [address] [place] [address] [place] CBC W AUTO DIFF BLD Collected: 10/20/2024 11:56 PM S tatus: F Source: [facility] Order Comment: Specimen Type : BLOOD SPECIMEN Ordering Facility: [facility] Address: [address] [place] [address] TYPE CODE TESTS RESULT OUT OF RANGE REFERENCE UNITS LAB 6690-2(LOINC) WBC # Bld Auto 6.98 3.70-11.00 k/uL LAB 789-8(LOINC) RBC # Bld Auto 3.91 3.90-5.20 m/ uL LAB 718-7(LOINC) Hgb Bld-mCnc 11.9 11.5-15.5 g/dL LAB 4544-3(LOINC) Hct VFr Bld Auto 36.0 36.0-46.0 % LAB 787-2(LOINC) MCV RBC Auto 92.1 80.0-100.0 fL LAB 785-6(LOINC) MCH RBC Qn Auto 30.4 26.0-34.0 p g LAB 786-4([facility]) MCHC RBC Auto-mCnc 33.1 30.5-36.0 g/dL LAB 03699-5([facility]) RDW RBC-Rto 14.0 11.5-15.0 % LAB 777-3([facility]) Platelet # Bld Auto 278 150-400 k/uL LAB 89448-4([facility]) PMV Bld Auto 9.4 9.0-12.7 fL LAB 770-8([facility]) Neutrophils/leuk NFr Bld Auto 56.0 % LAB 751-8([facility]) Neutrophils # Bld Auto 3.90 1.45-7.50 k/uL LAB 736-9([facility]) Lymphocytes/leuk NFr Bld Auto 28.9 % LAB 731-0([facility]) Lymphocytes # Bld Auto 2.02 1.00-4.00 k/uL LAB 5905-5([facility]) Monocytes/leuk NFr Bld Auto 10.0 % LAB 742-7([facility]) Monocytes # Bld Auto 0.70 <0.87 k/uL LAB 713-8([facility]) Eosinophil/leuk NFr Bld Auto 4.6 % LAB 711-2([facility]) Eosinophil # Bld Auto 0.32 <0.46 k/uL LAB 706-2([facility]) Basophils/leuk NFr Bld Auto 0.4 % LAB 704-7([facility]) Basophils # Bld Auto 0.03 <0.11 k/uL LAB 83089-7([facility]) Imm Granulocytes/oh k NFr Bld Auto 0.1 % LAB 38946-9([facility]) Imm Granulocytes # Bld Auto <0.03 <0.10 k/uL LAB 49102-9([facility]) nRBC/100 WBC Bld-Rto 0.0 /100 WBC LAB 771-6([facility]) nRBC # Bld Auto <0.01 <0.01 k/u L LAB 51707-8([facility]) Differential method Bld Auto Performed By: #### 17994-1 # ### [facility] [id number] HISTORY PHYSICAL Observed: 10/20/2024 6:22 PM Status: COMPLETED Source: [facility] HNO ID: [id number] Author: GIN THOMPSON MD Service: ? Author Type: Physician Type: H&P Filed: 10/20/2024 19:06 Note Text: INTERNAL MEDICINE HANDP EXAMINATION SERVICE DATE: 10/20/2024 SERVICE TIME: 6:22 PM PRIMARY CARE PHYSICIAN: Kirstin Miller, LEXI, STOCK SPECULATOR CHIEF COMPLAINT Recurrent encephalopathy HISTORY OF PRESENT ILLNESS HPI: Ms. Sarabia is a 84 year old female who presents with recurrent encephalopathy. Patient has PMHx of HTN, HLD, DM-2, GERD, HFpEF (LVEF 64%), and Atrial fibrillation (Eliquis). Patient came in from [place] on 10/16/2024 for recurrent mental status change, [...] hallucination. According to her , prior to [facility] admission patient was totally functional able to [...] 246. UA was negative. CXR. Patchy bibasilar atelectasis/infiltrate. Brain MRI. No acute intracranial process or [...] of headaches, syncope, paralysis, seizures or tremors PHYSICAL EXAM Patient Vitals for the past 24 hrs: BP Temp Temp src Pulse Resp SpO2 10/20/24 1532 144/58 37.1 ?C (98.8 ?F) Oral (!) 58 18 99 % 10/20/24 1104 127/55 36.7 ?C (98.1 ?F) Oral 65 18 94 % 10/20/24 0730 162/63 37.1 ?C (98.8 ?F) Oral 62 18 95 % 10/20/24 0516 163/71 36.7 ?C (98.1 ?F) Oral 65 18 95 % 10/19/24 2253 132/64 37.1 ?C (98.8 ?F) Oral (!) 58 16 100 % 10/19/24 1911 162/79 37.1 ?C (98.8 ?F) Oral 70 20 95 % Body mass index is 27.96 kg/m?. GENERAL: Alert, no distress, cooperative SKIN: Skin color, texture, turgor normal. No rashes or lesions. OROPHARYNX: Lips, mucosa, and tongue are normal.Teeth and gums, normal. Oropharynx normal. NECK: No jugulovenous distention, No carotid bruits, Carotid pulse normal contour, Supple LUNGS: Lungs clear to auscultation. Good diaphragmatic excursion. CARDIAC: Normal S1 and S2; no rubs, murmurs, or gallops ABDOMEN: Abdomen soft, non-tender, BS normal, No masses or organomegaly EXTREMETIES: Extremities normal, no deformities, edema, clubbing or skin discoloration. Good capillary refill., No ulcers NEURO: Alert, oriented X 3, Gait normal. Non-focal. Reflexes normal and symmetric. Sensation grossly intact., Cranial nerves II-XII intact PULSES: 2+ radial, 2+ carotid DATA: Diagnostic tests reviewed for today's visit: Most recent labs and imaging results. ASSESSMENT AND PLAN Assessment/Plan Recurrent mental status change. Brain MRI is negative EEG for evidence for encephalopathy but no seizure activities Evaluated by psychiatry, given diagnosis of delirium multifactorial Evaluated by neurology who recommended Urine porphobilinogen's to rule out acute intermittent poor phoria has been negative GI planning EGD with biopsy to rule out Whipple's disease (Eliquis is on hold) Abdominal pain with significant weight loss. Reportedly, patient came in with diffuse abdominal pain and [address] abdomen pelvis is negative GI is on board Paroxysmal atrial fibrillation. Currently in sinus rhythm On metoprolol ER 100 mg daily Eliquis is on hold for EGD and biopsy Moderate protein calorie malnutrition. Diet supplement Medication and Non-Pharmacologic VTE Prophylaxis/Anticoagulants VTE Prophylaxis: VTE prophylaxis appropriate SIGNATURE: Gin Thompson MD PATIENT NAME: Saeed Sarabia DATE: October 20, 2024 TIME: 6:22 PM PAGER/CONTACT #: NURSING PROG Observed: 10/20/2024 9:38 AM Status: COMPLETED Source: [facility] HNO ID: [id number] Author: RED COVINGTON RN Service: Nursing Author [...] states no other needs at this time. CONSULT Observed: 10/20/2024 7:17 AM Status: COMPLETED [facility] [id number] Author: LILLIE PEREZ MD Service: Psychiatry Author Type: Physician Type: Consults Filed: 10/20/2024 11:47 Note Text: CL NEW - PSYCHIATRY INITIAL CONSULTATION NOTE SERVICE DATE: October 20, 2024 SERVICE TIME: 7:17 AM Visit Type: In person CONSULTING SERVICE : Psychiatry, requested by REASON FOR CONSULTATION: Delirium. Subjective IDENTIFYING INFO: Ms. Sarabia is a 84 year old female from [place], [place] HISTORY OF PRESENT ILLNESS : Patient [...] spouse/partner and adult children Legal History: Denied Synagogue Affiliation(s): none Abuse History: She denied a [...] Rigidity, Hyperreflexia, or Clonus. Moved Extremities Against [place]. Gait / Station: Not assessed MENTAL STATUS EXAMINATION: Appearance: In hospital gown, well groomed, good eye contact Behavior: Engaged readily, cooperative, appropriate. Psychomotor: No psychomotor agitation. Cognition: Level of Consciousness: Awake and alert. No fluctuation in wakefulness. Orientation: Person Memory: Mildly impaired Attention/Concentration: Fair Fund of Knowledge: Able to demonstrate [...] or plan. Insight: Recognized the presence of illness. Judgment: Appropriate. LABS : Lab Results Component Value Date/Time WBC 5.44 10/17/2024 06:28 AM RBC 3.82 (L) 10/17/2024 06:28 AM HCT 35.9 (L) 10/17/2024 06:28 AM MCV 94.0 10/17/2024 06:28 AM MCH 30.9 10/17/2024 06:28 AM MCHC 32.9 10/17/2024 06:28 AM RDWCV 13.6 10/17/2024 06:28 AM PLT 246 10/17/2024 06:28 AM NEUTP 47.3 10/16/2024 01:50 PM LYMPHP 40.6 10/16/2024 01:50 PM MONOP 6.1 10/16/2024 01:50 PM EODINP 5.5 10/16/2024 01:50 PM BASOP 0.1 10/16/2024 01:50 PM ABSNEUT 3.89 10/16/2024 01:50 PM ABSMONO 0.50 10/16/2024 01:50 PM ABSEOSIN 0.45 10/16/2024 01:50 PM ABSBASO <0.03 10/16/2024 01:50 PM GLUC 103 (H) 10/17/2024 06:28 AM NA 140 10/17/2024 06:28 AM K 4.4 10/17/2024 06:28 AM CHLOR 102 10/17/2024 06:28 AM BUN 10 10/17/2024 06:28 AM CREAT 0.70 10/19/2024 07:08 AM MG 2.0 10/17/2024 06:28 AM TSH 0.103 (L) 10/17/2024 06:28 AM CO2 28 10/17/2024 06:28 AM TPROT 5.8 (L) 10/17/2024 06:28 AM ALB 3.4 (L) 10/17/2024 06:28 AM CA 9.2 10/17/2024 06:28 AM AST 22 10/17/2024 06:28 AM ALT 17 10/17/2024 06:28 AM ALKPHOS 46 10/17/2024 06:28 AM TBILI 0.3 10/17/2024 06:28 AM Urinalysis (past 7 days) Recent Labs 10/16/24 1533 UPH 6.0 SPGR 1.010 UGLUC Negative UBILI Negative UKET Negative UHB Negative UPROT Negative UROBILINOGEN Normal NITRITES Negative UWBC 0-5 /HPF Urine Toxicology AND Blood Alcohol Lab Results Component Value Date UBARB2 Negative 10/17/2024 UBENZ Negative 10/17/2024 UCOC2 Negative 10/17/2024 UTHC Negative 10/17/2024 UOPI Negative 10/17/2024 UPCP Negative 10/17/2024 UETOH <11 10/17/2024 IMAGING : MRI Brain IMPRESSION: No acute intracranial process or mass. Chronic changes as described. EKG: QTC =465 ASSESSMENT : Patient is 84 yo female presenting [...] No self mutilation behaviors Denied CURRENT SI/HI DIAGNOSIS: 1. Delirium multifacorial Global Assessment of Functionin-41 Serious symptoms or any serious impairment in social, occupational or school functioning. Clinical Global Impression--Severity of illness Scale: 5 = Markedly ill (intrusive symptoms, distinctly impair social/occupational function) PLAN : 1. 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 Please maintain K above 4 and Mg above 2 to prevent torsade depointes 3. Frequent reorientation 4. Delirium protocol 5. Avoid benzos, anticholinergics and narcotics can worsen mental status Follow up: Will follow up during hospitalization. I discussed my assessment and recommendations with RN My final impression and recommendations will be communicated back to the requesting physician by way of the shared medical record. During weekdays, 8 AM - 5 PM: please page for any questions of concerns. After 5 PM, weekends, and holidays: Please page psychiatry investor relations analyst at [phone]. SIGNATURE: Lillie Perez MD PATIENT NAME: Saeed Sarabia DATE: October 20, 2024 TIME: 7:17 AM I spent a total of 45 minutes on the date of the service which included preparing to see the patient, completing clinical documentation, obtaining and/or reviewing separately obtained history, counseling and educating the patient/family/caregiver, ordering medications, tests, or procedures, and care coordination (not separately reported). PROGRESS Observed: 10/19/2024 11:40 AM Status: COMPLETED Source: [facility] HNO ID: [id number] Author: ROSE TAPIA MD Service: Hospital Medicine Author Type: Physician Type: Progress Notes Filed: 10/19/2024 12:12 Note Text: ROU PROGRESS NOTE SERVICE DATE: 10/19/2024 SERVICE TIME: 11:40 AM Hospital Medicine/Primary Attending: Rose Tapia MD Subjective INTERVAL HPI: per pts -pt with hallucinations , has had hallucinations while at [place] seeing bugs crawling on the wall She has not been driving for 2.5 yrs due to the foot drop , recently failed the BMV testing for vision as she could not follow the commands Per pt has been confused since sep 17 2024 which is new for her , was admitted in [place] , had some improvement for 4-5 days [...] (POA: Yes) Patient had recent admission to [facility] on 09/17/2024 with concern for cholecystitis and [...] Provider, RN, Patient and Family/Significant Other: SIGNATURE: Rose Tapia MD PATIENT NAME: Saeed Sarabia DATE: October 19, 2024 TIME: 11:40 AM etx [id number] CASE MANAGEM Observed: 10/19/2024 10:18 AM Status: COMPLETED Source: [facility] HNO ID: [id number] Author: SUDHIR SANTOS LISW Service: Care Management Author Type: Adult Ministries Director Type: Care Mgt Progress Note Filed: 10/19/2024 10:19 Note Text: CARE MANAGEMENT PROGRESS NOTE SERVICE DATE: 10/19/2024 SERVICE TIME: 10:18 AM LOS: 1 day Post-Acute Discharge Planning Patient Goal(s): General wellness, Be able to go home [place] of Choice Explained: [place] of Choice Given: No Reason Not Given: [...] DATE: October 19, 2024 TIME: 10:18 AM NURSING PROG Observed: 10/19/2024 10:09 AM Status: COMPLETED Source: [facility] HNO ID: [id number] Author: RED COVINGTON RN Service: Nursing Author [...] states no other needs at this time. VIT B12 SERPL-MCNC Collected: 10/19/2024 7:09 AM Sta tus: F Source: [facility] Order Comment: Specimen Type : BLOOD SPECIMEN Ordering Facility: [facility] Address: [address] [place] [address] TYPE CODE TESTS RESULT OUT OF RANGE REFERENCE UNITS LAB 2132-9(LOINC) Vit B12 SerPl-mCnc 229 Low 232-1245 pg/mL Performed By: #### 2284-8, 2 132-9 #### [facility] CLIA [id number] [place] FOLATE SERPL-MCNC Collected: 10/19/2024 7:09 AM Stat us: F Source: [facility] Order Comment: Specimen Type : BLOOD SPECIMEN Ordering Facility: [facility] Address: [address] [place] [address] TYPE CODE TESTS RESULT OUT OF RANGE REFERENCE UNITS LAB 2284-8(LOINC) Folate SerPl-mCnc 14.7 >4.7 ng/mL Performed By: #### 2284-8, 2 132-9 #### [facility] CLIA [id number] [place] VITAMIN B6/PYRIDOXIN Collected: 025 7:08 AM Status: F Source: [facility] Order Comment: Specimen Type : BLOOD SPECIMEN Ordering Facility: [facility] Address: [address] [place] [address] TYPE CODE TESTS RESULT OUT OF RANGE REFERENCE UNITS LAB VITB6 VITAMIN B6 20.3 20.0-125.0 nmol/L Result Comment: INTERPRETIVE INFORMATION: Vitamin B6 (Pyridoxal 5-Phosphate) Pyridoxal 5'-phosphate measured in a specimen collected following an 8-hour or overnight fast accurately indicates vitamin B6 nutritional status. Non-fasting specimen concentration reflects recent vitamin intake. This test was developed and its performance characteristics determined by [email or web address]. It has not been cleared or approved by the US Food and Drug Administration. This test was performed in a CLIA certified laboratory and is intended for clinical purposes. Performed By: [facility] [address] [place] [address] Drafter Commercial: Ash Worley MD, PhD CLIA Number: [id number] Performed By: #### VITB6 ### # [facility] CLIA [id number] [address] [place] [address] VITAMIN B1 (THIAMINE), WHOLE BLOOD Lyle ected: 10/19/2024 7:08 AM Status: F Source: [facility] Order Comment: Specimen Type : BLOOD SPECIMEN Ordering Facility: [facility] Address: [address] [place] [address] TYPE CODE TESTS RESULT OUT OF RANGE REFERENCE UNITS LAB 97478-1(LOINC) Vit B1 Bld-sCnc 179.7 84.3-213.3 nmol/L Result Comment: This assay m easures the concentration of thiamine diphosphate (TDP), the primary active form of vitamin B1. Approximately 90 percent of vitamin B1 present in whole blood is TDP. Thiamine and thiamine monophosphate, which comprise the remaining 10 percent, are not measured. This test was developed, and its performance characteristics determined by the [facility] Department of Pathology and Laboratory Medicine. It has not been cleared or approved by the FDA. The [facility] Department of Pathology and Laboratory Medicine is regulated under CLIA as qualified to perform high- complexity testing. This test is used for clinical purposes. It should not be regarded as investigational or for research. Performed By: #### B1WB #### [facility] CLIA [id number] [address] [place], [place] [address]K [place] [id number] [place] T3FREE SERPL-MCNC Collected: 10/19/2024 7:08 AM Stat us: F Source: [facility] Order Comment: Specimen Type : BLOOD SPECIMEN Ordering Facility: [facility] Address: [address] [place] [address] TYPE CODE TESTS RESULT OUT OF RANGE REFERENCE UNITS LAB 3051-0(LOINC) T3Free SerPl-mCnc 2.6 2.3-4.1 pg/mL Performed By: #### 3024-7, C RET1, 3051-0 #### [facility] CLIA [id number] [address] [place] [address] [place] [facility] T4 FREE SERPL-MCNC Collected: 10/19/2024 7:08 AM Sta tus: F Source: [facility] Order Comment: Specimen Type : BLOOD SPECIMEN Ordering Facility: [facility] Address: [address] [place] [address] TYPE CODE TESTS RESULT OUT OF RANGE REFERENCE UNITS LAB 3024-7(LOINC) T4 Free SerPl-mCnc 1.5 0.9-1.7 ng/dL Performed By: #### 3024-7, C RET1, 305-0 #### [facility] CLIA [id number] [address] [place] [address] CREATININE BLD Collected: 10/19/2024 7:08 AM Status: F Source: [facility] Order Comment: Specimen Type : BLOOD SPECIMEN Ordering Facility: [facility] Address: [address] [place] [address] TYPE CODE TESTS RESULT OUT OF RANGE REFERENCE UNITS LAB 2160-0(LOINC) Creat SerPl-mCnc 0.70 0.58-0.96 mg/dL LAB 35572-2(LOINC) Creatinine + eGFR Pnl SerPlBld 85 >=60 mL/min/1. 73m??? Result Comment: Estimated Gl omerular Filtration Rate (eGFR) is calculated using the 2020 CKD-EPI creatinine equation. This equation utilizes serum creatinine, sex, and age as parameters. The creatinine assay has traceable calibration to isotope dilution-mass spectrometry. Refer to KDIGO guidelines for clinical interpretation. In patients with unstable renal function, e.g. those with acute kidney injury, the eGFR may not accurately reflect actual GFR. Performed By: #### 3024-7, C RET1, 3051-0 #### [facility] CLIA [id number] [address] [place] [address] [place] US ABD RIGHT UPPER QUADRANT Observed: 4:44 PM Status: F Source: [facility] * * *Final Report* * * DATE [...] Kidney: No hydronephrosis. Ascites: None. IMPRESSION: CHOLELITHIASIS. Teller Vault: PSCB Transcribe Date/Time: Oct 18 2024 5:04P Dictated by : YAKELIN NICOLE MD This examination was interpreted and the report reviewed and electronically signed by: YAKELIN NICOLE MD on Oct 18 2024 5:06PM EST [id number] PROGRESS Observed: 10/18/2024 4:17 PM Status: COMPLETED Source: [facility] HNO ID: [id number] Author: TIERRA DORMAN MD Service: Hospital Medicine Author Type: Physician Type: Progress Notes Filed: 10/18/2024 16:54 Note Text: ROU PROGRESS NOTE SERVICE DATE: 10/18/2024 SERVICE TIME: 4:17 PM Hospital Medicine/Primary Attending: Tierra Dorman MD Subjective INTERVAL HPI: Family reports [...] AND Plan: -Patient had recent admission to [facility] on 09/17/2024 with concern for cholecystitis and [...] be determined Plan of care discussed with: Provider, RN, Patient SIGNATURE: Tierra Dorman MD PATIENT NAME: Saeed Sarabia DATE: October 18, 2024 TIME: 4:17 PM etx [id number] PLAN OF CARE Observed: 10/18/2024 3:05 PM Status: COMPLETED [facility] [id number] Author: LUIZ ALVAREZ MD Service: Neurology General Author Type: [...] Neuro to sign off. Please page the [facility] [place] [phone] if any further questions or concerns. Luiz Alvarez MD PGY-4 CONSULT Observed: 10/18/2024 10:00 AM Status: COMPLETED Source: [facility] HNO ID: [id number] Author: NED CRUZ APRN.CNP Service: Gastroenterology Author Type: Nurse Practitioner Type: Consults Filed: 10/18/2024 14:07 Note Text: CONSULT: GASTROENTEROLOGY SERVICE SERVICE DATE: 10/18/2024 SERVICE TIME: 10:00 AM REASON FOR CONSULT: intermittent confusion, abdominal pain REQUESTING PHYSICIAN: Dr. Dorman PRIMARY CARE PHYSICIAN: Kirstin Miller, STOCK SPECULATOR, STOCK SPECULATOR Subjective Ms. Sarabia is a 84 year old female with PMH afib(eliquis), HTN, DM-type II, and gastric/duodenal ulcers (09/2024) who presented to ED 10/16 for mental status change x 3 days, abdominal pain/distention. GI consulted for evaluation of intermittent confusion, abdominal pain. Patient initially presented to [facility] mid September 19 for altered [...] EGD done for abd pain done at [facility] Mild LA grade A esophagitis [...] the bowel in the first 60 minutes. Impression/Recommendations Ms. Sarabia is a 84 year old [...] mouth once daily., Disp: , Rfl: Current Facility-Administered Medications Medication Dose Route Frequency [...] acting) (ADMElog) SUBCUTANEOUS w MEALS AND HS ceFAZolin iv piggyback 2 g in D5W (iso-osmotic) 100 mL (ANCEF) 2 g INTRAVENOUS q 8 HR Allergies As of Date: 10/16/2024 Allergen Noted Reaction MORPHINE 09/17/2024 GI Upset Fully Assessed 10/16/2024 COMPLETE REVIEW OF SYSTEMS: PAIN ASSESSMENT: CURRENTLY HAVING PAIN; see HPI GENERAL: Weight loss HEENT: Negative for frequent or significant headaches, No changes in hearing or vision, no nose bleeds or other nasal problems NECK: Negative for lumps, goiter, pain and significant neck swelling RESPIRATORY: Negative for cough, hemoptysis, wheezing, COPD, dyspnea or shortness of breath CARDIOVASCULAR: See HPI GI: See HPI : No history of dysuria, frequency or incontinence MUSCULOSKELETAL: Negative for joint pain or swelling, back pain or muscle pain SKIN: See HPI PSYCH: Negative for sleep disturbance, mood disorder and recent psychosocial stressors HEMATOLOGY/LYMPHOLOGY: Negative for prolonged bleeding, bruising easily or swollen nodes ENDOCRINE: See HPI NEURO: SEE HPI, confusion Objective PHYSICAL EXAM: Physical Exam Performed: GENERAL: Alert x 1, no distress, cooperative SKIN: Skin color, texture, turgor normal LUNGS: Lungs clear to auscultation, diminished CARDIAC: Normal S1 and S2 ABDOMEN: Abdomen soft, endorses mid/lower abd pain, BS + EXTREMITIES: Rt foot - purple/edema NEURO: Speech is clear. Grossly normal cognition, motor function PULSES: 2+ radial BP 154/76 Pulse 69 Temp (Src) 99 (Oral) Resp 16 Ht 5' 5 (1.65m) Wt 168 lb (76.2kg) SpO2 95% BMI 27.96 kg/(m2). O2 Therapy: Room Air DATA: Diagnostic tests reviewed for today's visit: Most recent labs and imaging results. Recent Labs 10/17/24 0628 10/16/24 1350 WBC 5.44 8.21 HB 11.8 13.4 HCT 35.9* 41.4 PLT 246 288 NA 140 137 K 4.4 4.4 CHLOR 102 96* CO2 28 19* BUN 10 12 CREAT 0.80 0.83 GLUC 103* 127* CA 9.2 9.7 MG 2.0 1.6* Recent Labs 10/17/24 0628 10/16/24 1350 TPROT 5.8* 7.3 ALB 3.4* 4.1 ALT 17 17 AST 22 24 ALKPHOS 46 56 TBILI 0.3 0.4 SIGNATURE: Ned Cruz APRN.CNP PATIENT NAME: Saeed Sarabia DATE: October 18, 2024 TIME: 10:00 AM PAGER: AMMONIA PLAS-SCNC Collected: 10/18/2024 9:42 AM Stat us: F Source: [facility] Order Comment: Specimen Type : BLOOD SPECIMEN Ordering Facility: [facility] Address: [address] [place] [address] TYPE CODE TESTS RESULT OUT OF RANGE REFERENCE UNITS LAB 26601-2([facility]) Ammonia Plas-sCnc 27 11-51 umol/L Performed By: #### 42787-3 # ### [facility] CLIA [id number] OF [facility] NURSING PROG Observed: 10/18/2024 1:00 AM Status: COMPLETED Source: [facility] HNO ID: [id number] Author: CHER CALDERON RN Service: Nursing Author Type: Registered Nurse Type: Nursing Progress Note Filed: 10/18/2024 01:10 Note Text: Event(s) / Intervention Note: PATIENT NAME: Saeed Sarabia Patient Location: [place] [id number] Room: [place] [address] The patient was observed having the following problems: Patient restless and confused attempting to pull off EEG leads and trying to get out of bed stating I'm getting out of here , patent offered toileting and accepted, patient assisted to the restroom then assisted back to bed. Continued to try to get up and pulled at lines and was unable to redirect, NURSE RECEPTIONIST notified and came to the bedside. The time of the event occurred at: 0020 The following intervention(s) were initiated: Placed new order for one time dose of IV haldol, patient compliant with administration. After the initiated interventions, the following observation(s) were made: nothing further noted. Will continue to observe and check with patient.. MRI BRAIN WO IVCON Observed: 10/17/2024 5:58 PM Status: F Source: [facility] * * *Final Report* * * DATE [...] process or mass. Chronic changes as described. Teller Vault: PSCB Transcribe Date/Time: Oct 17 2024 6:11P Dictated by : ADINA AGEE MD This examination was interpreted and the report reviewed and electronically signed by: GEOFFREY WELSH MD on Oct 17 2024 6:44PM EST [id number] ALLIED HEALTH Observed: 10/17/2024 5:47 PM Status: COMPLETED Source: [facility] HNO ID: [id number] Author: KIRSTIN FROST MRI Tech Service: Radiology Author Type: Consultant Intern Type: Allied Health Filed: 10/17/2024 17:47 Note [...] PATIENT PRESENTS WITH AN IMPLANTABLE OR ATTACHED PIGMENT PROCESSOR: No RADIOLOGY DEPARTMENT: MR; Exam(s) Completed: Head: Routine Brain PERIPHERAL IV DATA: Not applicable SIGNED BY: ZACK Velasquez October 17, 2024 5:47 PM PORPHOBILINOGEN (PBG), URINE , SCREEN Collected: 10/17/2024 4:40 PM Status: F Source: [facility] Order Comment: Specimen Type : URINE SPECIMEN Ordering Facility: [facility] Address: [address] [place] [address] TYPE CODE TESTS RESULT OUT OF RANGE REFERENCE UNITS LAB UPBG PORPHOBILINOGEN (PBG), URINE, SCREEN Negative Negative Result Comment: This test wa s developed, and its performance characteristics determined by the [facility] Department of Pathology and Laboratory Medicine. It has not been cleared or approved by the FDA. The [facility] Department of Pathology and Laboratory Medicine is regulated under CLIA as qualified to perform high-complexity testing. This test is used for clinical purposes. It should not be regarded as investigational or for research. Performed By: #### UPBG #### [facility] CLIA [id number] [address] [place], [place] [address] [address] [place] PLAN OF CARE Observed: 10/17/2024 3:03 PM Status: COMPLETED Source: [facility] HNO ID: [id number] Author: GLENROY MARTIN DO Service: General Internal Medicine Author Type: Physician Type: Plan of Care Filed: 10/17/2024 15:04 Note Text: The patient's right foot is swollen, red, hot and painful. An ultra sound of the right lower extremity was negative for DVT. Most likely developing a cellulitis of the right foot. No tinea pedis seen on exam. Initiate therapy with Ancef. NUTRITION Observed: 10/17/2024 12:34 PM Status: COMPLETED Source: [facility] HNO ID: [id number] Author: PATIENCE COVINGTON RD Service: NST-Nutrition Support [...] DATE: October 17, 2024 TIME: 12:34 PM CASE MGT MAGDALENA FOSTER Observed: 10/17/2024 9:19 AM Status: COMPLETED Source: [facility] HNO ID: [id number] Author: BRITNEY CHOUDHURY RN Service: Care Management Author Type: Registered Nurse Type: Care Mgt Initial Assessment Filed: 10/17/2024 09:26 Note Text: CARE MANAGEMENT: ASSESSMENT AND DISCHARGE PLAN SERVICE DATE: October 17, 2024 SERVICE TIME: 9:20 AM PCP: Kirstin Miller CNP, STOCK SPECULATOR Primary Contact: Extended Emergency Contact Information Primary Emergency Contact: CornellCecilia Mobile Relation: Spouse Admission Status: Observation Insurance Provider: MEDICARE A AND B Discharge Planning requested by: Per Department Practice Potential Transition Plans Home Advance Directives Current Advance Directive: Health Care Power of Deputy K 9 In Chart: No Editorial Project Manager Attempted to Assist with AD Completion: Yes [...] d/c needs. HCPOA paperwok on file within [employer] and verified to be current as of date/time of this note: No Legal Next of Kin Hierarchy per [place] Revised Code: Legal Spouse- Cecilia Sarabia [phone] Majority of Adult Children (consensus if possible) Parents Majority of Adult Siblings (consensus if possible) Nearest Blood Relative reports patient has HCPOA forms at home. Instructed that he can bring forms in to file. SIGNATURE: Britney Choudhury RN PATIENT NAME: Saeed Sarabia DATE: October 17, 2024 TIME: 9:19 AM CONSULT Observed: 10/17/2024 9:11 AM Status: COMPLETED Source: [facility] HNO ID: [id number] Author: SUNDEEP MATA MD Service: Neurology General Author Type: Physician Type: Consults Filed: 10/17/2024 21:23 Note Text: INITIAL CONSULT - GENERAL NEUROLOGY SERVICE DATE: 10/17/2024 SERVICE TIME: 9:11 AM Team Requesting Consult: Medicine Current Attending Provider: Glenroy Martin DO Neurology was asked to evaluate [...] appears comfortable in no acute distress HEENT: Normocephalic/atraumatic, sclera non-icteric Lungs: unlabored respiratory effort on [...] Pinprick: diminished in RLE only Reflexes: Upper Extremity Right Left Triceps 2+ 2+ Biceps 2+ 2+ Brachioradialis 2+ 2+ Lower Extremity Right Left Patellar 0 3+ Achilles 2+ 2+ Plantar Mute Mute Cerebellar testing: Finger to Nose: finger to nose intact without dysmetria BL Gait: not assessed LABS/DATA: WBC (k/uL) Date Value 10/17/2024 5.44 10/16/2024 8.21 04/04/2022 8.74 04/03/2022 10.11 04/02/2022 11.18 RBC (m/uL) Date Value 10/17/2024 3.82 10/16/2024 4.48 04/04/2022 3.55 04/03/2022 3.41 04/02/2022 3.57 Platelet Count (k/uL) Date Value 10/17/2024 246 10/16/2024 288 04/04/2022 240 04/03/2022 202 04/02/2022 210 BUN (mg/dL) Date Value 10/17/2024 10 10/16/2024 12 04/04/2022 12 04/03/2022 14 04/02/2022 13 Creatinine (mg/dL) Date Value 10/17/2024 0.80 10/16/2024 0.83 04/04/2022 0.68 04/03/2022 0.80 04/02/2022 0.69 Lab Results Component Value Date NEUTP 47.3 10/16/2024 ABSNEUT 3.89 10/16/2024 LYMPHP 40.6 10/16/2024 ABSLYMPH 3.33 10/16/2024 ABSMONO 0.50 10/16/2024 EODINP 5.5 10/16/2024 ABSEOSIN 0.45 10/16/2024 BASOP 0.1 10/16/2024 ABSBASO <0.03 10/16/2024 Lab Results Component Value Date PLT 246 10/17/2024 HB 11.8 10/17/2024 HCT 35.9 10/17/2024 ALB 3.4 10/17/2024 CA 9.2 10/17/2024 TBILI 0.3 10/17/2024 ALKPHOS 46 10/17/2024 AST 22 10/17/2024 GLUC 103 10/17/2024 BUN 10 10/17/2024 NA 140 10/17/2024 K 4.4 10/17/2024 CHLOR 102 10/17/2024 CO2 28 10/17/2024 ANION 10 10/17/2024 ALT 17 10/17/2024 Sed Rate, Westergren (mm/hr) Date Value 03/28/2022 29 CRP (mg/dL) Date Value 03/28/2022 0.6 No results found for: USCRP No results found for: CHOL No results found for: LDL No results found for: HDL No results found for: TG No results found for: HBA1C DATA: Diagnostic tests reviewed for today's visit: Most recent labs and imaging results. Impression/Recommendations This is Saeed Sarabia, a 84 year old female with episodic confusion. Patient's episodic confusion with hallucinations and associated abdominal pain are unusual. Acute intermittent porphyria can present like this but is usually accompanied with dark urine and a diffuse motor neuropathy. Whipple's disease is a rare cause of abdominal pain and confusion. However there is typically a lesion seen on MRI brain; patient's Mri was reportedly unremarkable in September although we only have the report. Alternatively, she may have an underlying neurodegenerative process in the background that has gone unrecognized by family with superimposed delirium in setting of abdominal pain. Recommendations: -Urine porphobilinogens -Consult GI for evaluation of possible Whipple's disease causing symptoms -Repeat Mri brain w/wo -EEG to r/o seizures Patient seen by and plan discussed with staff neurologist. [place] [facility] [place] [phone] if any further questions or concerns. SIGNATURE: Luiz Alvarez MD PATIENT NAME: Saeed Sarabia DATE: October 17, 2024 TIME: 9:11 AM I have reviewed the clinical details obtained and documented by Dr. Alvarez and I have participated in the jacobs components, including pertinent aspects of the interval history, impression and plan. I have discussed the case and management of the patient's care with Dr. Alvarez. I essentially agree with the assessment and plan as documented above. Edits to the note are indicated by italics. I spent a total of 61 minutes on the date of the service which included preparing to see the patient, [id number] patient care (or video call virtual visit if indicated above), completing clinical documentation, obtaining and/or reviewing separately obtained history, performing a medically appropriate examination, counseling tand educating the patient/family/caregiver and ordering medications, tests or procedures. >50% of time in counseling This note was partially created using voice recognition software and is inherently subject to errors including those of syntax and sound-alike substitutions which may escape proofreading. In such instances, original meaning may be extrapolated by contextual derivation. PROGRESS Observed: 10/17/2024 9:01 AM Status: COMPLETED Source: [facility] ID: [id number] Author: GLENROY MARTIN DO Service: General Internal Medicine Author Type: Physician Type: Progress Notes Filed: 10/17/2024 09:18 Note Text: ROU PROGRESS NOTE Name: Saeed Sarabia SERVICE DATE: 10/17/2024 SERVICE TIME: 9:01 AM Hospital Medicine/Primary Attending: Glenroy Martin DO ASSESSMENT AND PLAN *Altered mental [...] This patient was recently discharged from the [facility] where she was evaluated for [...] also a reason for her hospitalization at [facility]. Per her she seems to zone out [...] Provider, RN, Patient and Family/Significant Other: SIGNATURE: Glenroy Martin DO DATE: October 17, 2024 TIME: 9:01 AM NURSING PROG Observed: 10/17/2024 8:59 AM Status: COMPLETED [facility] [id number] Author: RED COVINGTON, RN Service: Nursing Author Type: Registered Nurse [...] states no other needs at this time. COMP METAB 2000 PNL SERPL Collected: 6:28 AM Status: F Source: [facility] Order Comment: Specimen Type : BLOOD SPECIMEN Ordering Facility: [facility] Address: [address] [place] [address] TYPE CODE TESTS RESULT OUT OF RANGE REFERENCE UNITS LAB 2885-2(LOINC) Prot SerPl-mCnc 5.8 Low 6.3-8.0 g/dL LAB 1751-7(LOINC) Albumin SerPl-mCnc 3.4 Low 3.9-4.9 g/dL LAB 86843-1(LOINC) Calcium SerPl-mCnc 9.2 8.5-10.2 mg/dL LAB 1975-2(LOINC) Bilirub SerPl-mCnc 0.3 0.2-1.3 mg/dL LAB 6768-6(LOINC) ALP SerPl-cCnc 46 34-123 U/L LAB 1920-8(LOINC) AST SerPl-cCnc 22 13-35 U/L LAB 1742-6(LOINC) ALT SerPl-cCnc 17 7-38 U/L LAB 2345-7(LOINC) Glucose SerPl-mCnc 103 High 74-99 mg/dL Result Comment: The [place] Diabetes Association (ADA) provides guidance for cutoff [...] Standards of Medical Care in Diabetes 2016, [place] Diabetes Association. Diabetes Care. 2016.39(Suppl 1). LAB 3094-0(LOINC) BUN SerPl-mCnc 10 7-21 mg/ dL LAB 2160-0(LOINC) Creat SerPl-mCnc 0.80 0.58-0.96 mg/dL LAB 2951-2(LOINC) Sodium SerPl-sCnc 140 136-144 mmol/L LAB 2823-3(LOINC) Potassium SerPl-sCnc 4.4 3.7-5.1 mmol/L LAB 2075-0(LOINC) Chloride SerPl-sCnc 102 98-107 mmol/L LAB 2028-9(LOINC) CO2 SerPl-sCnc 28 22-30 mmo l/L LAB 60601-3(LOINC) Anion Gap SerPl-sCnc 10 8-15 mmol/L LAB 43956-6(LOINC) Creatinine + eGFR Pnl SerPlBld 73 >=60 mL/min/1. 73m??? Result Comment: Estimated Gl omerular Filtration Rate (eGFR) is calculated using the 2020 CKD-EPI creatinine equation. This equation utilizes serum creatinine, sex, and age as parameters. The creatinine assay has traceable calibration to isotope dilution-mass spectrometry. Refer to KDIGO guidelines for clinical interpretation. In patients with unstable renal function, e.g. those with acute kidney injury, the eGFR may not accurately reflect actual GFR. Performed By: #### 70132-1, 3016-3, 90968-4, 06485-6 #### [facility] CLIA [id number] [address] [place] [address] [place] MAGNESIUM SERPL-MCNC Collected: 10/17/2024 6:28 AM S tatus: F Source: [facility] Order Comment: Specimen Type : BLOOD SPECIMEN Ordering Facility: [facility] Address: [address] [place] [address] TYPE CODE TESTS RESULT OUT OF RANGE REFERENCE UNITS LAB 20187-4(LOINC) Magnesium SerPl-mCnc 2.0 1.7-2.3 mg/dL Performed By: #### 44787-7, 3016-3, 88547-9, 55362-6 #### [facility] CLIA [id number] STATES [place] TSH SERPL-ACNC Collected: 6:28 AM Status: F Source: [facility] Order Comment: Specimen Type : BLOOD SPECIMEN Ordering Facility: [facility] Address: [address] [place] [address] TYPE CODE TESTS RESULT OUT OF RANGE REFERENCE UNITS LAB 3016-3(LOINC) TSH SerPl-aCnc 0.103 Low 0.270-4.200 mIU/L Performed By: #### 18057-7, 6-3, 20177-7, 72998-4 #### [facility] CLIA [id number] [address] [place] [address] OF [place] IRON+TIBC PNL SERPL Collected: 10/17/2024 6:[address] atus: F Source: [facility] Order Comment: Specimen Type : BLOOD SPECIMEN Ordering Facility: [facility] Address: [address] [place] [address] TYPE CODE TESTS RESULT OUT OF RANGE REFERENCE UNITS LAB 2498-4(LOINC) Iron SerPl-mCnc 74 41-186 ug/dL LAB 2500-7(LOINC) TIBC SerPl-mCnc 235 232-386 ug/dL LAB 66276-9(LOINC) Iron/TIBC SerPl-sRto 31.5 20.0-55.0 % Performed By: #### 04628-1, 3016-3, 99748-1, 95460-9 #### [facility] CLIA [id number] [address] [place] [address] [place] CBC PNL BLD AUTO Collected: 10/17/2024 6:28 AM Statu s: F Source: [facility] Order Comment: Specimen Type : BLOOD SPECIMEN Ordering Facility: [facility] Address: [address], [place] [address] TYPE CODE TESTS RESULT OUT OF RANGE REFERENCE UNITS LAB 6690-2([facility] WBC # Bld Auto 5.44 3.70-11.00 k/uL LAB 789-8(LOINC) RBC # Bld Auto 3.82 Low 3.90-5.20 m/uL LAB 718-7(LOINC) Hgb Bld-mCnc 11.8 11.5-15.5 g/dL LAB 4544-3(LOINC) Hct VFr Bld Auto 35.9 Low 36.0-46.0 % LAB 787-2(LOINC) MCV RBC Auto 94.0 80.0-100.0 fL LAB 785-6(LOINC) MCH RBC Qn Auto 30.9 26.0-34.0 pg LAB 786-4([facility] MCHC RBC Auto-mCnc 32.9 30.5-36.0 g/dL LAB 75736-3(LOINC) RDW RBC-Rto 13.6 11.5-15.0 % LAB 777-3(INC) Platelet # Bld Auto 246 150-400 k/uL LAB 23127-6([facility]) PMV Bld Auto 9.6 9.0-12.7 fL LAB 771-6([facility]) nRBC # Bld Auto <0.01 <0.01 k/uL Performed By: #### 10642-0 # ### [facility] CLIA [id number] [address] [place] [address] [place] TOXICOLOGY SCREEN, ROUTINE URINE Collected: 10/17/2024 5:31 AM Status: F Source: [facility] Order Comment: Specimen Type : URINE SPECIMEN Ordering Facility: [facility] Address: [address] [place] [address] TYPE CODE TESTS RESULT OUT OF RANGE REFERENCE UNITS LAB 76314-8([facility]) PCP Ur Ql Scn Negative Negative Result Comment: Cutoff thres hold at 25 ng/mL. LAB UBENZR BENZODIAZEPINES, UR Negative Negative Result Comment: Cutoff thres hold at 200 ng/mL. LAB 7957-7(LOINC) Cocaine Ur Ql Negative Negative Result Comment: Cutoff thres hold at 300 ng/mL. LAB 28732-0([facility]) Amphetamines Ur Cfm-mCnc Negative Negative Result Comment: Cutoff thres hold at 1000 ng/mL. LAB 39197-6(LOINC) Cannabinoids Ur Ql Scn Negative Negative Result Comment: Cutoff thres hold at 50 ng/mL. LAB 72229-9(LOINC) Opiates Ur Ql Scn Negative Negati ve Result Comment: Cutoff thres hold at 300 ng/mL. LAB UBARBR BARBITURATES, URINE Negative Negative Result Comment: Cutoff thres hold at 200 ng/mL. LAB 5645-7(LOINC) Ethanol Ur-mCnc <11 <11 mg /dL LAB 54016-7(LOINC) oxyCODONE rug scratcher Ur Scn-mCnc Negative Negative Result Comment: Cutoff thres hold at 100 ng/mL. Performed By: #### [id number] ### # [facility] CLIA [id number] [address] [place] [address] CNCO Observed: 10/17/2024 12:00 AM Status: COMPLETED Source: [facility] Letter Text HISTORY PHYSICAL Observed: 10/16/2024 8:20 PM Status: COMPLETED Source: [facility] HNO ID: [id number] Author: TYSHAWN CARO PA-C Service: General Internal Medicine Author Type: Physician Clinical Cytogeneticist Scientist Type: H&P Filed: 10/17/2024 05:17 Note Text: Department of Internal Medicine HISTORY AND PHYSICAL EXAMINATION SERVICE DATE: 10/16/2024 SERVICE TIME: 8:20 PM PRIMARY CARE PHYSICIAN: Kirstin Miller, STOCK SPECULATOR, STOCK SPECULATOR CONTACT COVERAGE: See Treatment Team and contact assigned BLAYNE. If no BLAYNE assigned: -5N/5W/5PAV/6th floor/2S or ED Hold, page House Team A: [phone] [facility], naheed House Team B: [phone] Subjective CHIEF COMPLAINT: Altered Mental Status HPI: [...] in this time. She was admitted to [facility] on 09/17 for concern for cholecystitis where [...] Negative DVT study. CXR shows patchy bibasilar atelectasis/infiltrate. Code status discussion is not medically appropriate [...] Negative for difficulty urinating, dysuria and frequency. Psychiatric/Behavioral: Positive for confusion. Objective PHYSICAL EXAM: Physical [...] sounds. No wheezing. Abdominal: Palpations: Abdomen is soft. Tenderness: There is abdominal tenderness in the right lower quadrant and left lower quadrant. Musculoskeletal: Comments: 1+ pitting edema noted to the BLE Skin: General: Skin is warm and dry. Neurological: Mental Status: She is alert. She is disoriented. Sensory: No sensory deficit. Motor: No weakness. 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 O2 Therapy: Room Air DATA: Diagnostic tests reviewed for today's visit: Most recent labs and imaging results. CBC: Recent Labs 10/16/24 1350 WBC 8.21 RBC 4.48 HB 13.4 HCT 41.4 PLT 288 MCV 92.4 MCH 29.9 MPV 9.9 CMP: Recent Labs 10/16/24 1350 NA 137 K 4.4 CHLOR 96* CO2 19* BUN 12 CREAT 0.83 GLUC 127* TPROT 7.3 CA 9.7 MG 1.6* TBILI 0.4 ALKPHOS 56 ALT 17 AST 24 ANION 22* Assessment/Plan Assessment AND Plan Altered mental status - Presents with AMS over the last [...] Management consult - Neurology Consult, appreciate involvement Lower abdominal pain - Presents with mild lower abdominal pain - CT ABD/PEL did not show any acute process other than endometrial thickening - Pain control with Tylenol PRN Atrial fibrillation (HCC) - Currently in sinus rhythm - Continue SAMPLE CUTTER Eliquis and metoprolol - Tele order DM type 2 (diabetes mellitus, type 2) ([facility]) - Blood glucose 127 in the ED - Continue SAMPLE CUTTER metformin and glipizide - SSI - Carb controlled diet Medication and Non-Pharmacologic VTE Prophylaxis/Anticoagulants Anticoagulant AND Antiplatelet Medications (From admission, onward) Start Dose Route Frequency Last Action Ordered Stop 10/16/242099 apixaban 5 mg tab(s) (ELIQUIS) 5 mg ORAL 2 TIMES DAILY Ordered 10/16/24 2019 -- VTE Prophylaxis: Taking Eliquis BID This note was created using [employer]. Any inadvertent grammar, spelling or syntax errors are due to voice recognition software error and are not intentional. Plan of care discussed with: Provider, RN, Patient. I spent a total of 45 minutes on the date of the service which included preparing to see the patient, [id number] patient care, completing clinical documentation, obtaining and/or reviewing separately obtained history, performing a medically appropriate examination, counseling and educating the patient/family/caregiver, ordering medications, tests, or procedures, and care coordination (not separately reported). SIGNATURE: Tyshawn Caro PA-C PATIENT NAME: Saeed Sarabia DATE: October 16, 2024 TIME: 8:20 PM PAGER/CONTACT #: US DVT LOWER RT Observed: 10/16/2024 4:47 PM Status: F Source: [facility] * * *Final Report* * * DATE OF EXAM: Oct 16 2024 4:47PM FVU 1007 - US DVT LOWER RT / [...] imaged segments of the right lower extremity. Teller Vault: ROSS Transcribe Date/Time: Oct 16 2024 4:56P Dictated by : CLARY HUERTAS MD This examination was interpreted and the report reviewed and electronically signed by: CLARY HUERTAS MD on Oct 16 2024 5:07PM EST [id number] ALLIED HEALTH Observed: 10/16/2024 4:39 PM Status: COMPLETED Source: [facility] HNO ID: [id number] Author: ANIA BRANHAM RDMS Service: Radiology Author Type: Gin Pole Operator Type: Allied Health Filed: 10/16/2024 16:40 Note [...] PATIENT PRESENTS WITH AN IMPLANTABLE OR ATTACHED PIGMENT PROCESSOR: No RADIOLOGY DEPARTMENT: Ultrasound PERIPHERAL IV DATA: Not applicable SIGNED BY: Ania Branham RDMS October 16, 2024 4:39 PM ED PROV NOTE Observed: 10/16/2024 4:04 PM Status: COMPLETED Source: [facility] HNO ID: [id number] Author: NADYA KEENE DO Service: ? Author Type: Physician [...] current altered mentation. I did review her [facility] note which did show that she had an MRI scan of her head which did show chronic microvascular changes with nothing acute. Patient will be admitted to the CDU for further management of her altered mentation. SIGNATURE: Nadya Keene DO PATIENT NAME: Saeed Sarabia DATE: October 16, 2024 TIME: 4:04 PM PAGER/CONTACT #: NADYA KEENE 10/16/[address] ABD/PEL W IVCON Observed: 10/16/2024 3:43 PM Status: F Source: [facility] * * *Final Report* * * DATE [...] Recommendation: US FEMALE PELVIS NON-OB NON TORSION ([id number]) Time Frame: At the discretion of the clinical team. COMMUNICATION: Results will be communicated with the ordering provider via [employer] staff message or phone message by [employer] within 2 business days of report finalization. --END OF FINDING-- Teller Vault: ROSS Transcribe Date/Time: Oct 16 2024 3:53P Dictated by : YUKI FRAGOSO MD This examination was interpreted and the report reviewed and electronically signed by: YUKI FRAGOSO MD on Oct 16 2024 4:13PM EST [id number] ACTIONABLE ALLIED HEALTH Observed: 10/16/2024 3:36 PM Status: COMPLETED Source: [facility] HNO ID: [id number] Author: DULCE BURTON CT Service: Radiology Author Type: Consultant Intern Type: Allied Health Filed: 10/16/2024 15:37 Note [...] PATIENT PRESENTS WITH AN IMPLANTABLE OR ATTACHED PIGMENT PROCESSOR: No ALLERGIES: Reviewed and unchanged CONTRAST ALLERGY: [...] PERIPHERAL IV DATA: Inpatient - refer to [facility] documentation RADIOLOGY DEPARTMENT: CT; Exam(s) Completed: Abdomen/Pelvis SIGNATURE: GRACY Garcia PATIENT NAME: Saeed Sarabia DATE: October 16, 2024 TIME: 3:36 PM URINALYSIS COMPLETE PNL UR Collected: 10/16/2024 3:33 PM Status: F Source: [facility] Order Comment: Specimen Type : URINE SPECIMEN Ordering Facility: [facility] Address: [address] [place] [address] TYPE CODE TESTS RESULT OUT OF RANGE REFERENCE UNITS LAB 5778-6(LOINC) Color Ur Light Yellow Yellow LAB 98880-9(LOINC) Clarity Spec Clear Clear LAB 5792-7(LOINC) Glucose Ur Strip-mCnc Negative Trace, Negative LAB 5770-3(LOINC) Bilirub Ur Ql Strip Negative Negative LAB 2514-8(LOINC) Ketones Ur Strip Negative Negative, Trace LAB 5811-5(LOINC) Sp Gr Ur Strip 1.010 1.005-1.030 LAB 5794-3(LOINC) Hgb Ur Ql Strip Negative Negative, Trace LAB 5803-2(LOINC) pH Ur Strip 6.0 5.0-8.0 LAB 5804-0(LOINC) Prot Ur Strip-mCnc Negative Trace, Negative LAB 5818-0(LOINC) Urobilinogen Ur Strip Normal Normal LAB 5802-4(LOINC) Nitrite Ur Ql Strip Negative Negative LAB 5799-2(LOINC) Leukocyte esterase Ur Ql Strip Negative Negative, 25 Oh/uL LAB 5821-4(LOINC) WBC #/area UrnS HPF 0-5 /HPF 0-5 /HPF LAB 08172-1(LOINC) RBC #/area UrnS HPF 0-3 /HPF 0-3 /HPF LAB 5787-7(LOINC) Epi Cells #/area UrnS HPF Few /HPF LAB 5796-8(LOINC) Hyaline Casts #/area UrnS LPF 1-3 /LPF Abnormal 0 /LPF Performed By: #### 05883-2 # ### [facility] CLIA [id number] ED PROV NOTE Observed: 10/16/2024 2:38 PM Status: COMPLETED Source: [facility] HNO ID: [id number] Author: JASON SAGASTUME DO Service: Emergency Medicine Author Type: Physician Type: ED Provider Notes Filed: 10/16/2024 16:14 Note Text: ED Provider Note Patient Name: Saeed Sarabia : 1940 SERVICE DATE: 10/16/24 History Patient presents with: Mental Status Changes: seat cover 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 Abdominal Pain: Distention noted problems with abdominal pain and pressure for some time. Sent By Md: [facility] pt to ED for further eval HPI Patient is an 84-year-old female who presents with altered mental status. Brought in by family. Increasing confusion over the past few days. Patient was recently hospitalized in [place] for abdominal pain, confusion. Encephalopathy of unclear [...] Negative for dizziness, syncope, light-headedness and headaches. Psychiatric/Behavioral: Positive for confusion. Negative for behavioral problems. [...] in by . Patient was admitted to [place] in September for similar presentation, no source [...] At this time will obtain CT to further evaluate etiology of abdominal pain. Labs are overall unremarkable, no UTI. Unclear source of her encephalopathy. Signed out to Dr. Keene pending CT and admission for inpatient continued workup of altered mental status History and Record Review Clinical information obtained from an independent historian. History obtained from or confirmed by: spouse. External record(s) reviewed: prior inpatient record. Findings from review of inpatient records: Reviewed discharge summary from [place]. Differential Diagnoses - Altered mental status -Intracranial Hemorrhage Less likely because:no hx of trauma (for epidural,SDH,IPH) and no focal neurologic deficits -Ischemic Stroke/TIA Less likely because:no focal neurologic deficits -Electrolyte abnormalities Less likely because:labs without electrolyte disturbance -Hepatic Encephalopathy Less likely because:no evidence of hepatic dysfunction on CMP -Hypo/hyperglycemia Less likely because:blood glucose normal -Infectious Less likely because:afebrile and no focal signs of infection -Toxic/drug Less likely because:no suspicion of medication overdose Additional complaint based differentials considered: neurologic, metabolic, infectious, toxic/drug, intracranial hemorrhage, ischemic stroke/ TIA, electrolyte abnormalities, hepatic encephalopathy, hypo/hyperglycemia Management Meds Given During Visit ED Medication Administration from 10/16/2024 1328 to 10/16/2024 1613 None Contributing Factors Chronic conditions affecting care: diabetes and hypertension Re-evaluation Resting in bed comfortably, calm and cooperative Transfer of Care The patient's care was transferred over to Dr. Keene at 4:14 PM. The care and plan was discussed with the oncoming provider. Items pending that need to be reviewed: Radiology - CT/MRI . Tentative impression of patient: CT, admit SIGNATURE: DO Sita Swann MEGAN 10/16/24 1614 XR CHEST 1V FRONTAL PORT Observed: 10/16 2:20 PM Status: F Source: [facility] * * *Final Report* * * DATE [...] Lungs and pleura: There is patchy bibasilar atelectasis/infiltrate, new since 03/28/2022. Cardiomediastinal silhouette: Stable cardiomediastinal silhouette. Other: No bony abnormalities. IMPRESSION: PATCHY BIBASILAR ATELECTASIS/INFILTRATE, NEW SINCE 03/28/2022 Teller Vault: ROSS Transcribe Date/Time: Oct 16 2024 3:06P Dictated by : YAKELIN NICOLE MD This examination was interpreted and the report reviewed and electronically signed by: YAKELIN NICOLE MD on Oct 16 2024 3:06PM EST [id number] ALLIED HEALTH Observed: 10/16/2024 2:19 PM Status: COMPLETED Source: [facility] HNO ID: [id number] Author: MEENA DE JESUS RT(R) Service: Radiology Author Type: [...] PATIENT PRESENTS WITH AN IMPLANTABLE OR ATTACHED PIGMENT PROCESSOR: No RADIOLOGY DEPARTMENT: General X-ray: Exam(s) Completed: Chest X-Ray PERIPHERAL IV DATA: Not applicable SIGNED BY: RT Mariana(R) October 16, 2024 2:19 PM CBC W AUTO DIFF BLD Collected: 10/16/2024 1:[address] atus: F Source: [facility] Order Comment: Specimen Type : BLOOD SPECIMEN Ordering Facility: [facility] Address: [address] [place] [address] TYPE CODE TESTS RESULT OUT OF RANGE REFERENCE UNITS LAB 6690-2(LOINC) WBC # Bld Auto 8.21 3.70-11.00 k/uL LAB 789-8(LOINC) RBC # Bld Auto 4.48 3.90-5.20 m/ uL LAB 718-7(LOINC) Hgb Bld-mCnc 13.4 11.5-15.5 g/dL LAB 4544-3(LOINC) Hct VFr Bld Auto 41.4 36.0-46.0 % LAB 787-2(LOINC) MCV RBC Auto 92.4 80.0-100.0 fL LAB 785-6(LOINC) MCH RBC Qn Auto 29.9 26.0-34.0 p g LAB 786-4(LOINC) MCHC RBC Auto-mCnc 32.4 30.5-36.0 g/dL LAB 94200-2(LOINC) RDW RBC-Rto 13.6 11.5-15.0 % LAB 777-3(LOINC) Platelet # Bld Auto 288 150-400 k/uL LAB 08296-4(LOINC) PMV Bld Auto 9.9 9.0-12.7 fL LAB 770-8(LOINC) Neutrophils/leuk NFr Bld Auto 47.3 % LAB 751-8(LOINC) Neutrophils # Bld Auto 3.89 1.45-7.50 k/uL LAB 736-9(INC) Lymphocytes/leuk NFr Bld Auto 40.6 % LAB 731-0(INC) Lymphocytes # Bld Auto 3.33 1.00-4.00 k/uL LAB 5905-5(INC) Monocytes/leuk NFr Bld Auto 6.1 % LAB 742-7(INC) Monocytes # Bld Auto 0.50 <0.87 k/uL LAB 713-8(INC) Eosinophil/leuk NFr Bld Auto 5.5 % LAB 711-2([facility]) Eosinophil # Bld Auto 0.45 <0.46 k/uL LAB 706-2([facility]) Basophils/leuk NFr Bld Auto 0.1 % LAB 704-7([facility]) Basophils # Bld Auto <0.03 <0.11 k/uL LAB 32371-4([facility]) Imm Granulocytes/oh k NFr Bld Auto 0.4 % LAB 48617-9([facility]) Imm Granulocytes # Bld Auto 0.03 <0.10 k/uL LAB 25244-1([facility]) nRBC/100 WBC Bld-Rto 0.0 /100 WBC LAB 771-6([facility]) nRBC # Bld Auto <0.01 <0.01 k/u L LAB 58613-4([facility]) Differential method Bld Auto Performed By: #### 42428-1 # ### [facility] CLIA [id number] [place] [address] [place] COMP METAB 2000 PNL SERPL Collected: 1:50 PM Status: F Source: [facility] Order Comment: Specimen Type : BLOOD SPECIMEN Ordering Facility: [facility] Address: [address] [place] [address] TYPE CODE TESTS RESULT OUT OF RANGE REFERENCE UNITS LAB 2885-2([facility]) Prot SerPl-mCnc 7.3 6.3-8.0 g/dL LAB 1751-7([facility]) Albumin SerPl-mCnc 4.1 3.9-4.9 g/dL LAB 25146-6(LOINC) Calcium SerPl-mCnc 9.7 8.5-10.2 mg/dL LAB 1975-2(LOINC) Bilirub SerPl-mCnc 0.4 0.2-1.3 mg/dL LAB 6768-6(LOINC) ALP SerPl-cCnc 56 34-123 U/L LAB 1920-8(LOINC) AST SerPl-cCnc 24 13-35 U/L LAB 1742-6(LOINC) ALT SerPl-cCnc 17 7-38 U/L LAB 2345-7(LOINC) Glucose SerPl-mCnc 127 High 74-99 mg/dL Result Comment: The [place] Diabetes Association (ADA) provides guidance for cutoff [...] Standards of Medical Care in Diabetes 2016, [place] Diabetes Association. Diabetes Care. 2016.39(Suppl 1). LAB 3094-0(LOINC) BUN SerPl-mCnc 12 7-21 mg/ dL LAB 2160-0(LOINC) Creat SerPl-mCnc 0.83 0.58-0.96 mg/dL LAB 2951-2(LOINC) Sodium SerPl-sCnc 137 136-144 mmol/L LAB 2823-3(LOINC) Potassium SerPl-sCnc 4.4 3.7-5.1 mmol/L LAB 2075-0(LOINC) Chloride SerPl-sCnc 96 Low 98-107 mmol/L LAB 8-9(LOINC) CO2 SerPl-sCnc 19 Low 22-30 mmo l/L LAB 63487-5(LOINC) Anion Gap SerPl-sCnc 22 High 8-15 mmol/L LAB 92541-1(LOINC) Creatinine + eGFR Pnl SerPlBld 70 >=60 mL/min/1. 73m??? Result Comment: Estimated Gl omerular Filtration Rate (eGFR) is calculated using the 2020 CKD-EPI creatinine equation. This equation utilizes serum creatinine, sex, and age as parameters. The creatinine assay has traceable calibration to isotope dilution-mass spectrometry. Refer to KDIGO guidelines for clinical interpretation. In patients with unstable renal function, e.g. those with acute kidney injury, the eGFR may not accurately reflect actual GFR. Performed By: #### 99209-5, #### [facility] CLIA [id number] [place] [address] [place] MAGNESIUM SERPL-MCNC Collected: 10/16/2024 1:50 PM S tatus: F Source: [facility] Order Comment: Specimen Type : BLOOD SPECIMEN Ordering Facility: [facility] Address: [address] [place] [address] TYPE CODE TESTS RESULT OUT OF RANGE REFERENCE UNITS LAB (LOINC) Magnesium SerPl-mCnc 1.6 Low 1.7-2.3 mg/dL Performed By: #### 37186-4, #### [facility] CLIA [id number] [place] FLUABV+SARS-COV-2+RSV PNL RE SP HARMONY+PROBE Observed: 10/16/2024 1:49 PM Status: F Source: [facility] SARS-COV-2 (AGENT OF COVID-1 9) RNA: Not detectedINFLUENZA A RNA: Not detectedINFLUENZA B RNA: Not detectedRESPIRATORY SYNCYTIAL VIRUS (RSV) RNA: Not detected Performed By: #### 22159-6 # ### [facility] CLIA [id number] [address] [place] [address] [place] ECG COMPLETE Observed: 10/16/2024 1:36 PM Status: F Source: [facility] Ventricular Rate : 76 BPM Atrial Rate : 77 BPM P-R Interval : 113 ms QRS Duration : 146 ms Q-T Interval : 413 ms QTC Calculation(Bazett) : 465 ms Calculated P [place] : 97 degrees Calculated R [place] : -42 degrees Calculated T [place] : 100 degrees Sinus rhythm Atrial premature complex Borderline short WV interval Left bundle branch block Abnormal ECG No Stemi Confirmed by JASON SAGASTUME MD ([id number]) on 10/16/2024 4:13:30 PM NAME : SAEED SARABIA PID : [id number] : 1940 Gender : Female Race : ORD : [id number] Procedure Date : Oct 16 2024 13:36:17 Edit Date : Oct 16 2024 16:13:35 Diagnosis: Sinus rhythm Atrial premature complex Borderline short WV interval Left bundle branch block Abnormal ECG No Stemi Confirmed by JASON SAGASTUME MD ([id number]) on 10/16/2024 4:13:30 PM Test Reason : Chest Pain Location : 402 : FVED [id number] Overread By : JASON SAGASTUME MD Edited By : JASON SAGASTUME MD Referred By : , Acquired by : [id number], ED NOTE Observed: 10/16/2024 1:29 PM Status: COMPLETED Source: [facility] HNO ID: [id number] Author: TRUMAN SUBRAMANIAN RN Service: ? Author Type: Registered Nurse Type: ED Notes Filed: 10/16/2024 13:29 Note Text: Bed: -ED Expected date: 10/16/24 Expected time: 12:55 PM Means of arrival: [facility]/EMS Comments: 84F confusion x 3 days per spouse From AANDox2 169/96, 88, 96%, BGL 135 +IV prenotification ED PROV NOTE Observed: 10/16/2024 12:49 PM Status: COMPLETED Source: [facility] HNO ID: [id number] Author: BRIANNA RASMUSSEN DO Service: Emergency Medicine Author Type: Physician Type: ED Provider Notes Filed: 10/16/2024 12:53 Note Text: ED E-CONSULT PROVIDER TO PROVIDER NOTE SERVICE DATE: 10/16/2024 PATIENT LOCATION: [facility] SERVICE TIME: 12:49 PM REQUESTING PROVIDER: Briana Schwarz PA-C REQUESTING LOCATION: [facility] CONSULTING SERVICE: Emergency Services I am being asked to provide an opinion on management for Saeed who is a 84 year old female. ASSESSMENT Recent treatment for UTI end of August Admitted to OSH in September Increased confusion x 3 days, disoriented No N/V + lower abd pain From chart review from OSH admission: Hospital course: 83yoF who was admitted from [place] to [facility] on 09/17 for concern for cholecystitis. Patient was seen at [place] ED for abdominal pain and AMS. CT head was unremarkable but CT Abd showed signs concerning for cholecystitis with the presence of cholelithiasis. She was transferred to [facility] with General Surgery evaluation. HIDA was negative [...] the requesting team. The patient or patient's visitor services representative consented to e-consultation. SIGNATURE: Brianna Rasmussen DO PATIENT NAME: Saeed Sarabia DATE: October 16, 2024 TIME: 12:49 PM I have communicated my name and active licensure. The patient's identity and physical location were verified at the time of this visit. Either the patient or their legal visitor services representative has been informed of the risks and benefits of -- and alternatives to -- treatment through a remote evaluation and consents to proceed with the evaluation remotely. BRIANNA RASMUSSEN 10/16/24 1253 PROGRESS Observed: 10/16/2024 12:48 PM Status: COMPLETED [facility] [id number] Author: BRIANA SCHWARZ PA-C Service: ? Author Type: Physician Clinical Cytogeneticist Scientist Type: Progress Notes Filed: 10/16/2024 12:57 Note Text: [facility] October 16, 2024 Saeed Sarabia 1940 Patient presents with: Abdominal Pain: X6 wks on and off, change in mental status x3 days Was recently treated for uti getting better then abd pain and admitted to [facility] and then transferred to [place] and admitted for a week with gall [...] to ER due to the limitations of [facility] testing capabilities. The patient verbalized understanding and denies questions. Patient transported to Emergency Department by who refused transport Abd exam with lower abd pain no guarding no masses no rebound. The patient refused transfer to ER by ambulance. The patient was accompanied by and states that they feel safe to self transport. Advised of possible risks. Report called Briana Schwarz PA-C [facility] CNOV Observed: 10/16/2024 11:55 AM Status: COMPLETED Source: [facility] Office Visit (EXPNOL) SAEED SARABIA ([id number]) 1940 F Date Time Provider Department 10/16/24 11:55 AM BRIANA SCHWARZ EXPNOL During your visit today, we recorded the following information about you: Temperature Pulse Respiration Blood pressure 99.3 degrees 76/minute 18/minute 156/61 Briana Schwarz PA-C 10/16/2024 12:57 PM Signed [facility] October 16, 2024 Saeed Sarabia 1940 Patient presents with: Abdominal Pain: X6 wks on and off, change in mental status x3 days Was recently treated for uti getting better then abd pain and admitted to [place] and then transferred to [place] and admitted for a week with gall [...] ER due to the limitations of [facility] testing capabilities. The patient verbalized understanding and denies questions. Patient transported to Emergency Department by who refused transport Abd exam with lower abd pain no guarding no masses no rebound. The patient refused transfer to ER by ambulance. The patient was accompanied by and states that they feel safe to self transport. Advised of possible risks. Report called Briana Schwarz PA-C [facility] Referring Provider: SELF [[id number]] Allergies As [...] Encounter Status:Closed by BRIANA SCHWARZ on 10/16/24 DS Observed: 09/21/2024 2:43 PM Status: COMPLETED Source: [facility] Hospital Medicine Discharge Summary Final Discharge Diagnosis: Suprapubic abdominal pain Metabolic encephalopathy Gastric ulcers Esophagitis, LA grade A Cholelithiasis Afib HTN T2DM CHF Admission Diagnosis: Acute cholecystitis [K81.0] Cholecystitis [K81.9] Hospital course: 83yoF who was admitted from [place] to [facility] on 09/17 for concern for cholecystitis. Patient was seen at [place] ED for abdominal pain and AMS. CT head was unremarkable but CT Abd showed signs concerning for cholecystitis with the presence of cholelithiasis. She was transferred to [facility] with General Surgery evaluation. HIDA was negative [...] Medications These medications were sent to [facility] - [address] [place] [address] [address] [facility] [place] [address], [facility] [address] pantoprazole 40 mg EC tablet Saeed is [...] 3.3 < > = values in this interval not displayed. Results from last 7 days Lab Units 09/21/24 0406 09/20/24 0604 09/19/24 0829 09/19/24 0525 09/17/24 1946 AMMONIA umol/L -- -- 25 -- -- AST U/L 31 22 -- 18 15 ALT U/L 25 12 -- 11 11 ALK PHOS U/L 45 44 -- 49 43 BILIRUBIN TOTAL mg/dL 0.5 0.5 -- 0.5 0.5 LIPASE U/L -- -- -- -- 27 Test Results Pending At Discharge: Pending Labs Order Current Status Gastrin In process Diet at the time of discharge: regular diet Nutrition Screen Activity: Patient currently has no discharge activity orders Objective Blood pressure 138/66, pulse 54, temperature 36.5 ???C (97.7 ???F), temperature source Temporal, resp. rate 16, height 1.676 m (5' 6 ), weight 73.7 kg (162 lb 7.7 oz), SpO2 97%. General: Alert and oriented x3. Cardiology: Normal rate, regular rhythm. Lungs: Clear to auscultation, no wheezes, rales or rhonchi, symmetric air entry. Abdomen: Soft, non tender, non distended. Total time for discharge - review of data, exam, discussion with providers and care-team, med-rec and orders, arranging follow up, counseling of patient and/or family and documentation was 30 minutes. Signed Kayleigh Rivera MD [facility] Medicine 09/21/2024 4:42 PM CC: MD Paul 30 Observed: 09/21/2024 11:45 AM Status: COMPLETED Source: [facility] The patient is Moderately St able - Low risk of patient condition declining or worsening The patient's goals for the shift include comfort/rest The clinical goals for the shift include VSS/Comfort Problem: Pain - Adult Goal: Verbalizes/displays adequate comfort level or baseline comfort level Outcome: ProgressingProblem: Safety - Adult Goal: Free from fall injury Outcome: ProgressingProblem: Discharge Planning Goal: Discharge to home or other facility with appropriate resources Outcome: ProgressingProblem: Chronic Conditions and Co-morbidities Goal: Patient's chronic conditions and co-morbidity symptoms are monitored and maintained or improved Outcome: Progressing POCT GLUCOSE METER UNSOLICIT ED RESULTS Collected: 09/21/2024 11:35 AM Status: UNK Source: [facility] Order Comment: Waived Testin g in the ED is performed under the ED CLIA certificate #[id number]. TYPE CODE TESTS RESULT OUT OF RANGE REFERENCE UNITS LAB 885 POCT GLUCOSE 182 High 70-105 mg/dL Result Comment: [email or web address] Performed By: #### [id number] #### [facility] ([facility]) [address] [place] [address] PROGRESS Observed: 09/21/2024 11:34 AM Status: COMPLETED Source: [facility] Followed up with patient and family to discuss her discharge plan. At this time they continue to decline home healthcare and SNF placement but are agreeable to following up with therapies as an outpatient . 30 Observed: 09/21/2024 10:51 AM Status: COMPLETED Source: [facility] Daily Case Management Update Multidisciplinary rounds have been completed. Barriers [...] further OTM needs identified at this time. [facility] will continue to follow patient and assist [...] the patient Other Other: Facilitate discharge plans 09/17/242216Therapy Orders (From admission, onward) Start Ordered 09/17/242213 PT eval and treat Until therapy completed Question: Reason for PT? Answer: Evaluate and treat 09/17/242213 OT eval and treat Until therapy completed Question: Reason for OT? Answer: Evaluate and treat 09/17/242216 POCT GLUCOSE METER UNSOLICIT ED RESULTS Collected: 09/21/2024 8:05 AM Status: UNK Source: [facility] Order Comment: Waived Testin g in the ED is performed under the ED CLIA certificate #[id number]. TYPE CODE TESTS RESULT OUT OF RANGE REFERENCE UNITS LAB 885 POCT GLUCOSE 114 High 70-105 mg/dL Result Comment: [email or web address] Performed By: #### [id number] #### [facility] ([facility]) [address] [place] [address] CBC WITH AUTO DIFFERENTIAL Collected: 09/21/2024 4:06 AM Status: UNK Source: [facility] TYPE CODE TESTS RESULT OUT OF RANGE REFERENCE UNITS LAB [id number] LEUKOCYTES(10*3/ UL) IN BLOOD BY AUTOMATED COUNT 7.73 4.00-10.60 10*3/uL LAB [id number] ERYTHROCYTES (10*6/UL) IN BLOOD BY AUTOMATED COUNT 4.12 3.80-5.00 10*6/uL LAB [id number] HEMOGLOBIN (G/DL) IN BLOOD 12.3 12.0-15.0 g/dL LAB [id number] HEMATOCRIT (%) IN BLOOD BY AUTOMATED COUNT 38.8 36.0-48.0 % LAB 3994076 ERYTHROCYTE MEAN CORPUSCULAR VOLUME (FL) BY AUTOMATED COUNT 94.2 82.0-98.0 fL LAB [id number] ERYTHROCYTE MEAN CORPUSCULAR HEMOGLOBIN (PG) BY AUTOMATED COUNT 29.9 27.0-33.0 pg LAB [id number] ERYTHROCYTE MEAN CORPUSCULAR HEMOGLOBIN CONCENTRATION (G/DL) BY AUTOMATED 31.7 Low 32.0-35.0 g/dL LAB [id number] ERYTHROCYTE DISTRIBUTION WIDTH (RATIO) BY AUTOMATED COUNT 13.2 11.5-15.0 % LAB [id number] NEUTROPHILS/100 LEUKOCYTES IN BLOOD BY AUTOMATED COUNT 54.5 40.0-72.0 % LAB [id number] LYMPHOCYTES/100 LEUKOCYTES IN BLOOD BY AUTOMATED COUNT 33.2 20.0-45.0 % LAB 8235534 MONOCYTES/100 LEUKOCYTES IN BLOOD BY AUTOMATED COUNT 9.6 5.0-12.0 % LAB [id number] EOSINOPHILS/100 LEUKOCYTES IN BLOOD BY AUTOMATED COUNT 2.3 0.0-6.0 % LAB [id number] BASOPHILS/100 LEUKOCYTES IN BLOOD BY AUTOMATED COUNT 0.4 0.0-1.0 % LAB [id number] NEUTROPHILS (10*3/UL) IN BLOOD BY AUTOMATED COUNT 4.21 1.60-7.60 10*3/uL LAB [id number] LYMPHOCYTES (10*3/UL) IN BLOOD BY AUTOMATED COUNT 2.57 1.20-4.00 10*3/uL LAB [id number] MONOCYTES (10*3/UL) IN BLOOD BY AUTOMATED COUNT 0.74 0.10-1.00 10*3/uL LAB [id number] EOSINOPHILS (10*3/UL) IN BLOOD BY AUTOMATED COUNT 0.18 0.00-0.50 10*3/uL LAB [id number] BASOPHILS (10*3/UL) IN BLOOD BY AUTOMATED COUNT 0.03 0.00-0.20 10*3/uL LAB [id number] PLATELETS (10*3/UL) IN BLOOD AUTOMATED COUNT 289 150-400 10*3/uL LAB 254 NRBC (PER 100 WBCS) BY AUTOMATED COUNT 0.0 0 % LAB 1767 IMMATURE GRANULOCYTES/100 LEUKOCYTES IN BLOOD BY AUTOMATED COUNT 0.4 0.0-1.0 % LAB 1768 IMMATURE GRANULOCYTES (10*3/UL) IN BLOOD BY AUTOMATED COUNT 0.03 0.00-0.20 10*3/uL Performed By: #### [id number] # ### [facility] (BEAKER) [address] [place] [address] COMPREHENSIVE METABOLIC PANEL Collected: 09/21/2024 4 :06 AM Status: UNK Source: [facility] TYPE CODE TESTS RESULT OUT OF RANGE REFERENCE UNITS LAB [id number] SODIUM (MMOL/L) IN SER/PLAS 138 136-145 mmol/L LAB [id number] POTASSIUM (MMOL/ L) IN SER/PLAS 4.4 3.5-5.1 mmol/L LAB 7923654 CHLORIDE (MMOL/L ) IN SER/PLAS 104 98-107 mmol/L LAB [id number] CARBON DIOXIDE, TOTAL (MMOL/L) IN SER/PLAS 26 21-31 mmol/L LAB 9378782 ANION GAP IN SER/PLAS 12 7-20 mmol/L LAB [id number] UREA NITROGEN (MG/DL) IN SER/PLAS 15 7-25 mg/dL LAB 1072394 CREATININE (MG/D L) IN SER/PLAS 1.00 0.60-1.20 mg/dL LAB [id number] UREA NITROGEN/CREATININ E (MASS RATIO) IN SER/PLAS 15.0 NA LAB 2139588 GLUCOSE (MG/DL) IN SER/PLAS 131 High 70-100 mg/dL LAB [id number] CALCIUM (MG/DL) IN SER/PLAS 8.7 8.6-10.3 mg/dL LAB [id number] ASPARTATE AMINOTRANSFERASE (SGOT) (U/L) IN SER/PLAS 31 13-39 U/L LAB [id number] ALANINE AMINOTRANSFERASE (SGPT) (U/L) IN SER/PLAS 25 7-52 U/L LAB 3991511 ALKALINE PHOSPHATASE (U/L) IN SER/PLAS 45 34-104 U/L LAB [id number] PROTEIN (G/DL) I N SER/PLAS 5.9 Low 6.0-8.3 g/dL LAB 3584828 ALBUMIN (G/DL) I N SER/PLAS 3.5 3.5-5.7 g/dL LAB 0761902 BILIRUBIN TOTAL (MG/DL) IN SER/PLAS 0.5 0.3-1.0 mg/dL LAB [id number] GLOMERULAR FILTRATION RATE ML/MIN/1.73 SQ M.PREDICTED 55.9 Low >60.0 mL/min /1.73m *2 Result Comment: [facility]???s estimated glomerular filtration rate (eGFR) will no [...] one group of individuals. Performed By: #### [id number] ### # [facility] (VANDANA) [address] [place] [address] PROGRESS Observed: 09/21/2024 2:43 AM Status: COMPLETED Source: [facility] Physical Therapy Physical Therapy Treatment Patient Name: [...] chair alarm activated Assessment/Plan PT Assessment PT Assessment/SAMPLE CUTTER Summary: pt claudia therapy well, pt could [...] proper alignment before sitting. (RESOLVED) 09/19/24 10/03/24 09/21/24Goal Start Date Expected End Date End Date Patient will perform bed mobility from flat bed independently without use of bed rails. (RESOLVED) 09/19/24 10/03/24 09/21/24Goal Start Date Expected End Date End Date Maximize strength B hip and knee extensors, and BUE triceps and lats to facilitate return to independent bed mobility and for ease of transfers and gait. (RESOLVED) 09/19/24 10/03/24 09/21/24Goal Start Date Expected End Date End Date Pt to progress seated and standing balance to allow return to prior level of functional activity, ADLs and tasks. (RESOLVED) 09/19/24 10/03/24 09/21/24 30 Observed: 09/20/2024 10:25 PM Status: COMPLETED Source: [facility] The patient is Moderately St able - Low risk of patient condition declining or worsening The patient's goals for the shift include comfort/rest The clinical goals for the shift include VSS/Comfort Problem: Pain - Adult Goal: Verbalizes/displays adequate comfort level or baseline comfort level Outcome: ProgressingProblem: Safety - Adult Goal: Free from fall injury Outcome: ProgressingProblem: Discharge Planning Goal: Discharge to home or other facility with appropriate resources Outcome: ProgressingProblem: Skin/Tissue Integrity - Adult Goal: Skin integrity remains intact Outcome: Progressing POCT GLUCOSE METER UNSOLICIT ED RESULTS Collected: 09/20/2024 8:34 PM Status: UNK Source: [facility] Order Comment: Cyrus Testin g in the ED is performed under the ED CLIA certificate #[id number]. TYPE CODE TESTS RESULT OUT OF RANGE REFERENCE UNITS LAB 885 POCT GLUCOSE 138 High 70-105 mg/dL Result Comment: [email or web address] Performed By: #### [id number] #### [facility] (BEAKER) [address] [place] [address] POCT GLUCOSE METER UNSOLICIT ED RESULTS Collected: 09/20/2024 5:07 PM Status: UNK Source: [facility] Order Comment: Waived Testin g in the ED is performed under the ED CLIA certificate #[id number]. TYPE CODE TESTS RESULT OUT OF RANGE REFERENCE UNITS LAB 885 POCT GLUCOSE 220 High 70-105 mg/dL Result Comment: [email or web address] Performed By: #### [id number] #### [facility] ([facility]) [address] [place] [address] POCT GLUCOSE METER UNSOLICIT ED RESULTS Collected: 09/20/2024 11:57 AM Status: UNK Source: [facility] Order Comment: Waived Testin g in the ED is performed under the ED CLIA certificate #[id number]. TYPE CODE TESTS RESULT OUT OF RANGE REFERENCE UNITS LAB 885 POCT GLUCOSE 165 High 70-105 mg/dL Result Comment: [email or web address] Performed By: #### [id number] #### [facility] ([facility]) [address] [place] [address] GASTRIN Collected: 11:32 AM Status: UNK Source: [facility] TYPE CODE TESTS RESULT OUT OF RANGE REFERENCE UNITS LAB [id number] GASTRIN (PG/ML) IN SER/PLAS 21 0-100 pg/mL Result Comment: Performed By : [email or web address] [address] [place] [address] [employer]: Ash Worley MD, PhD CLIA Number: [id number] Performed By: #### [id number] ### # [facility] ([facility]) [address] [place] [address] ANES Observed: 09/20/2024 10:05 AM Status: COMPLETED Source: [facility] Patient: Saeed Sarabia Procedure Summary Date: 09/20/24 Room / Location: [facility] Main Operating Room Anesthesia Start: 742 Anesthesia [...] no known notable events for this encounter. PROGRESS Observed: 09/20/2024 9:38 AM Status: COMPLETED Source: [facility] Occupational Therapy Occupational Therapy Treatment Patient Name: [...] lower body clothing? 2 Bathing(Including washing,rinsing,drying)? 2 Toileting, which includes using the toilet,bedpan,or urinal? 3 Putting on and taking off regular upper body clothing? 3 Taking care of personal grooming such as brushing teeth? 3 Eating meals? 4 Total Score OT [facility] 17 OT Goals: Multi-Disciplinary Problems (from Occupational Therapy) Active Problems Problem: Balance Start Date: 09/18/24 Goal Start Date Expected End Date End Date LTG - Patient will demo mod I balance to allow for safe mobility 09/18/24 10/02/24 -- Goal Start Date Expected End Date End Date LTG - Patient will demo mod I standing and sitting balance to allow for completion of daily activities 09/18/24 10/02/24 -- Problem: Bathing Start Date: 09/18/24 Goal Start Date Expected End Date End Date LTG - Patient will utilize adaptive techniques to bathe body with stand-by/contact guard 09/18/24 10/02/24 -- Problem: Dressings Lower Extremities Start Date: 09/18/24 Goal Start Date Expected End Date End Date LTG - Patient will utilize adaptive techniques/equipment to dress lower body with modified independent 09/18/24 10/02/24 -- Problem: Dressing Upper Extremities Start Date: 09/18/24 Goal Start Date Expected End Date End Date STG - Patient will ambulate to closet to retrieve clothing with modified independent 09/18/24 10/02/24 -- Problem: Grooming Start Date: 09/18/24 Goal Start Date Expected End Date End Date STG - Patient will tolerate standing sink side to complete grooming with modified independent 09/18/24 10/02/24 -- Problem: Toileting Start Date: 09/18/24 Goal Start Date Expected End Date End Date LTG - Patient will utilize adaptive techniques/equipment to complete daily toileting tasks with modified independent 09/18/24 10/02/24 -- Problem: Transfers Start Date: 09/18/24 Goal Start Date Expected End Date End Date LTG - Patient will transfer from bed <> chair/toilet/shower with modified independent using walker 09/18/24 10/02/24 -- Goal Start Date Expected End Date End Date LTG - Patient will perform bed mobility with modified independent 09/18/24 10/02/24 -- Problem: OT Misc Start Date: 09/18/24 Goal Start Date Expected End Date End Date Pt will increase activity tolerance to engage in at least 20-30 minutes of dynamic seated/standing activity with no more than min rest breaks PRN. 09/18/24 10/02/24 -- Goal Start Date Expected End Date End Date Pt will demo I with attention, safety awareness, sequencing, and problem solving. 09/18/24 10/02/24 -- NURSNOTE Observed: 09/20/2024 9:12 AM Status: COMPLETED Source: [facility] Dr. Ramiro rodrigez with ariane hollis being discharged from PACU to return to bed 4184 CONSULT Observed: 09/20/2024 9:00 AM Status: COMPLETED Source: [facility] Reason For Consult Encephalopathy without clear etiology Referring Provider: Kayleigh Rivera MD History Of Present Illness Saeed Sarabia is a 83 y.o. female who was transferred from [facility] to [facility] with cholelithiasis and acute cholecystitis. She has [...] a past medical history of Atrial fibrillation ([facility]), CHF (congestive heart failure) (CMS/[facility]), Coronary artery disease, Diabetes mellitus (CMS/HCC), Heart [...] oral BID PRN sodium chloride 10 mL intravenous q8h PRN spironolactone 12.5 mg oral Daily 12.5 mg at 09/19/24 1103 sulfamethoxazole-trimethoprim 160 mg of trimethoprim oral q12h 160 mg at 09/20/24 0411 Review of Systems -as above in HPI Last Recorded Vitals Patient Vitals for the past 24 hrs: BP Temp Temp src Pulse Resp SpO2 Weight 09/20/24 0805 (!) 97/40 36.6 ???C (97.9 ???F) Temporal 67 23 96 % -- 09/20/24 0734 143/73 36.5 ???C (97.7 ???F) Tympanic 66 20 97 % -- 09/20/24 0412 133/68 36.6 ???C (97.9 ???F) -- 62 16 96 % 72 kg (158 lb 11.7 oz) 09/19/24 1845 107/72 36.1 ???C (97 ???F) -- 68 16 94 % -- Physical Exam Vitals reviewed. Constitutional: Non-ill appearing. No acute distress noted. Head & Face: Head is normocephalic and atraumatic. Face is symmetric. Neck: Supple. Skin: Normal skin color and turgor. Cardiovascular: Peripheral pulses intact. Respiratory: Respirations are easy and regular. Neurologic: Mental Status: Patient is awake, alert and oriented to self, knows she is in the hospital although unaware of the name, knows the month is September and the year is 2023. She is slow to recall with some questions. She follows simple one-step commands and able to follow more complex commands with rephrasing the question. Language intact. No aphasia, dysarthria, or apraxias. Cranial Nerves: II: PERRLA. Normal tracking. No evidence of hemianopia or other visual field defect. III, IV, : Extraocular movements intact; No ptosis. No nystagmus. V: Facial sensation equal to touch in all 3 divisions bilaterally. No weakness of muscles of mastication. VII: Face symmetric with normal eye closure and smile. VIII: Hearing normal bilaterally to conversation. IX, X: Palate elevates symmetrically. Phonation normal. XI: Shoulder elevation symmetric and 5/5. Sternocleidomastoid muscle strength symmetric. XII: Tongue midline with good movements. No fasciculations seen. Tongue strength intact. Motor: Purposeful movement noted in all 4 extremities. Motor strength 5/5 in all areas tested areas besides Right ankle dorsal flexors and Right ankle plantar flexors is 2/5 due to foot drop. No acute focal motor weakness. Muscle bulk appropriate for age. Muscle tone without hyper or hypotonicity. No dystonia or bradykinesia. No motor tics, tremors, rigidity or spasticity. Plantar response: Flexor on left; right is equivocal. Sensory: Sensation intact to light touch throughout. Coordination/ Cerebellar: [id number] test is normal. Gait and Station: BRUNA Deep Tendon Reflexes: Biceps Triceps Brachioradialis Patella Achilles Right 2 2 2 Left 2 2 2 Relevant Results Admission on 09/17/2024 Component Date [...] 09/17/2024 23.5 Final Glucose 09/17/2024 128 (H) 70 - 100 mg/dL Final Calcium 09/17/2024 9.2 8.6 - 10.3 mg/dL Final AST 09/17/2024 15 13 - 39 U/L Final ALT (SGPT) 09/17/2024 11 7 - 52 U/L Final Alkaline Phosphatase 09/17/2024 43 34 - 104 U/L Final Total Protein 09/17/2024 6.7 6.0 - 8.3 g/dL Final Albumin 09/17/2024 3.9 3.5 - 5.7 g/dL Final Total Bilirubin 09/17/2024 0.5 0.3 - 1.0 mg/dL Final eGFR 09/17/2024 86.4 >60.0 mL/min/1.73m*2 Final [facility]???s estimated glomerular filtration rate (eGFR) [...] disproportionately affect any one group of individuals. Lipase 09/17/2024 27 11 - 82 U/L Final Troponin I 09/17/2024 0.01 0.00 - 0.04 ng/mL Final Auto WBC 09/17/2024 7.10 4.00 - 10.60 10*3/uL Final RBC 09/17/2024 4.27 3.80 - 5.00 10*6/uL Final Hemoglobin 09/17/2024 12.9 12.0 - 15.0 g/dL Final Hematocrit 09/17/2024 39.0 36.0 - 48.0 % Final MCV 09/17/2024 91.3 82.0 - 98.0 fL Final MCH 09/17/2024 30.2 27.0 - 33.0 pg Final MCHC 09/17/2024 33.1 32.0 - 35.0 g/dL Final RDW 09/17/2024 13.1 11.5 - 15.0 % Final Neutrophils Relative 09/17/2024 60.8 40.0 - 72.0 % Final Lymphocytes Relative 09/17/2024 28.6 20.0 - 45.0 % Final Monocytes Relative 09/17/2024 9.4 5.0 - 12.0 % Final Eosinophils Relative 09/17/2024 0.8 0.0 - 6.0 % Final Basophils Relative 09/17/2024 0.3 0.0 - 1.0 % Final Neutrophils Absolute 09/17/2024 4.31 1.60 - 7.60 10*3/uL Final Lymphocytes Absolute 09/17/2024 2.03 1.20 - 4.00 10*3/uL Final Monocytes Absolute 09/17/2024 0.67 0.10 - 1.00 10*3/uL Final Eosinophils Absolute 09/17/2024 0.06 0.00 - 0.50 10*3/uL Final Basophils Absolute 09/17/2024 0.02 0.00 - 0.20 10*3/uL Final Platelets 09/17/2024 301 150 - 400 10*3/uL Final nRBC % 09/17/2024 0.0 0 % Final Immature Granulocytes Relative 09/17/2024 0.1 0.0 - 1.0 % Final Immature Granulocytes Absolute 09/17/2024 0.01 0.00 - 0.20 10*3/uL Final Color, Urine 09/17/2024 Colorless Colorless, Yellow, Light-Yellow Final Clarity, Urine 09/17/2024 Clear Clear Final pH, Urine 09/17/2024 5.0 5.0 - 8.0 pH Final Leukocytes, Urine 09/17/2024 Negative Negative Final Nitrite, Urine 09/17/2024 Negative Negative Final Protein, Urine 09/17/2024 Negative Negative mg/dL Final Glucose, Urine 09/17/2024 Normal Normal mg/dL Final Bilirubin, Urine 09/17/2024 Negative Negative Final Specific Walton, Urine 09/17/2024 1.026 1.010 - 1.030 Final Ketones, Urine 09/17/2024 Trace (A) Negative mg/dL Final Blood, Urine 09/17/2024 Trace (A) Negative Final Urobilinogen, Urine 09/17/2024 Normal Normal mg/dL Final RBC, Urine 09/17/2024 0-2 None Seen, 0-2 /HPF Final WBC, Urine 09/17/2024 3-5 (A) None Seen, 0-2 /HPF Final Squamous Epithelial, Urine 09/17/2024 Few None Seen, Occasional, Few /LPF Final Mucus, Urine 09/17/2024 Occasional None Seen, Occasional, Few /LPF Final Magnesium 09/17/2024 1.5 (L) 1.9 - 2.7 mg/dL Final Phosphorus 09/17/2024 3.3 2.5 - 5.0 mg/dL Final pH, Garret 09/17/2024 7.44 (H) 7.31 - 7.41 Final pCO2, Garret 09/17/2024 26 (L) 40 - 50 mmHg Final pO2, Garret 09/17/2024 147 (H) 35 - 45 mmHg Final HCO3, Venous 09/17/2024 17.7 mmol/L Final Calcium, Ion 09/17/2024 1.04 (L) 1.15 - 1.33 mmol/L Final O2 Sat, Garret 09/17/2024 99.8 (H) 65.0 - 75.0 % Final Base Excess, Garret 09/17/2024 -4.9 mmol/L Final Calcium, Ion 09/17/2024 1.02 (L) 1.15 - 1.33 mmol/L Final Glucose POC 09/17/2024 129 (H) 70 - 105 mg/dL Final [email or web address] Sodium 09/18/2024 138 136 - 145 mmol/L Final Potassium 09/18/2024 4.0 3.5 - 5.1 mmol/L Final Chloride 09/18/2024 102 98 - 107 mmol/L Final CO2 09/18/2024 27 21 - 31 mmol/L Final BUN 09/18/2024 17 7 - 25 mg/dL Final Creatinine 09/18/2024 0.72 0.60 - 1.20 mg/dL Final Glucose 09/18/2024 112 (H) 70 - 100 mg/dL Final Calcium 09/18/2024 9.0 8.6 - 10.3 mg/dL Final Anion Gap 09/18/2024 13 7 - 20 mmol/L Final eGFR 09/18/2024 82.9 >60.0 mL/min/1.73m*2 Final [facility]???s estimated glomerular filtration rate (eGFR) [...] disproportionately affect any one group of individuals. BUN/Creatinine Ratio 09/18/2024 23.6 Final Auto WBC 09/18/2024 6.54 4.00 - 10.60 10*3/uL Final RBC 09/18/2024 4.04 3.80 - 5.00 10*6/uL Final Hemoglobin 09/18/2024 12.3 12.0 - 15.0 g/dL Final Hematocrit 09/18/2024 39.1 36.0 - 48.0 % Final MCV 09/18/2024 96.8 82.0 - 98.0 fL Final MCH 09/18/2024 30.4 27.0 - 33.0 pg Final MCHC 09/18/2024 31.5 (L) 32.0 - 35.0 g/dL Final RDW 09/18/2024 13.2 11.5 - 15.0 % Final Platelets 09/18/2024 284 150 - 400 10*3/uL Final Glucose POC 09/18/2024 125 (H) 70 - 105 mg/dL Final [email or web address] Glucose POC 09/18/2024 170 (H) 70 - 105 mg/dL Final [email or web address] TSH 09/18/2024 0.04 (L) 0.34 - 5.60 mIU/L Final Free T4 09/18/2024 1.38 0.71 - 1.85 ng/dL Final Glucose POC 09/18/2024 211 (H) 70 - 105 mg/dL Final [email or web address] Glucose POC 09/18/2024 154 (H) 70 - 105 mg/dL Final [email or web address] Sodium 09/19/2024 137 136 - 145 mmol/L Final Potassium 09/19/2024 4.0 3.5 - 5.1 mmol/L Final Chloride 09/19/2024 102 98 - 107 mmol/L Final CO2 09/19/2024 25 21 - 31 mmol/L Final Anion Gap 09/19/2024 14 7 - 20 mmol/L Final BUN 09/19/2024 12 7 - 25 mg/dL Final Creatinine 09/19/2024 0.79 0.60 - 1.20 mg/dL Final BUN/Creatinine Ratio 09/19/2024 15.2 Final Glucose 09/19/2024 147 (H) 70 - 100 mg/dL Final Calcium 09/19/2024 9.4 8.6 - 10.3 mg/dL Final AST 09/19/2024 18 13 - 39 U/L Final ALT (SGPT) 09/19/2024 11 7 - 52 U/L Final Alkaline Phosphatase 09/19/2024 49 34 - 104 U/L Final Total Protein 09/19/2024 6.5 6.0 - 8.3 g/dL Final Albumin 09/19/2024 4.0 3.5 - 5.7 g/dL Final Total Bilirubin 09/19/2024 0.5 0.3 - 1.0 mg/dL Final eGFR 09/19/2024 74.2 >60.0 mL/min/1.73m*2 Final [facility]???s estimated glomerular filtration rate (eGFR) [...] disproportionately affect any one group of individuals. Magnesium 09/19/2024 1.7 (L) 1.9 - 2.7 mg/dL Final Auto WBC 09/19/2024 10.39 4.00 - 10.60 10*3/uL Final RBC 09/19/2024 4.44 3.80 - 5.00 10*6/uL Final Hemoglobin 09/19/2024 13.4 12.0 - 15.0 g/dL Final Hematocrit 09/19/2024 41.3 36.0 - 48.0 % Final MCV 09/19/2024 93.0 82.0 - 98.0 fL Final MCH 09/19/2024 30.2 27.0 - 33.0 pg Final MCHC 09/19/2024 32.4 32.0 - 35.0 g/dL Final RDW 09/19/2024 13.2 11.5 - 15.0 % Final Neutrophils Relative 09/19/2024 69.7 40.0 - 72.0 % Final Lymphocytes Relative 09/19/2024 20.7 20.0 - 45.0 % Final Monocytes Relative 09/19/2024 8.7 5.0 - 12.0 % Final Eosinophils Relative 09/19/2024 0.3 0.0 - 6.0 % Final Basophils Relative 09/19/2024 0.3 0.0 - 1.0 % Final Neutrophils Absolute 09/19/2024 7.25 1.60 - 7.60 10*3/uL Final Lymphocytes Absolute 09/19/2024 2.15 1.20 - 4.00 10*3/uL Final Monocytes Absolute 09/19/2024 0.90 0.10 - 1.00 10*3/uL Final Eosinophils Absolute 09/19/2024 0.03 0.00 - 0.50 10*3/uL Final Basophils Absolute 09/19/2024 0.03 0.00 - 0.20 10*3/uL Final Platelets 09/19/2024 333 150 - 400 10*3/uL Final nRBC % 09/19/2024 0.0 0 % Final Immature Granulocytes Relative 09/19/2024 0.3 0.0 - 1.0 % Final Immature Granulocytes Absolute 09/19/2024 0.03 0.00 - 0.20 10*3/uL Final Glucose POC 09/19/2024 151 (H) 70 - 105 mg/dL Final [email or web address] Ammonia 09/19/2024 25 18 - 72 umol/L Final Glucose POC 09/19/2024 198 (H) 70 - 105 mg/dL Final [email or web address] Glucose POC 09/19/2024 146 (H) 70 - 105 mg/dL Final [email or web address] Glucose POC 09/19/2024 140 (H) 70 - 105 mg/dL Final lbortle Sodium 09/20/2024 138 136 - 145 mmol/L Final Potassium 09/20/2024 4.1 3.5 - 5.1 mmol/L Final Chloride 09/20/2024 104 98 - 107 mmol/L Final CO2 09/20/2024 27 21 - 31 mmol/L Final Anion Gap 09/20/2024 11 7 - 20 mmol/L Final BUN 09/20/2024 12 7 - 25 mg/dL Final Creatinine 09/20/2024 0.86 0.60 - 1.20 mg/dL Final BUN/Creatinine Ratio 09/20/2024 14.0 Final Glucose 09/20/2024 115 (H) 70 - 100 mg/dL Final Calcium 09/20/2024 9.0 8.6 - 10.3 mg/dL Final AST 09/20/2024 22 13 - 39 U/L Final ALT (SGPT) 09/20/2024 12 7 - 52 U/L Final Alkaline Phosphatase 09/20/2024 44 34 - 104 U/L Final Total Protein 09/20/2024 6.2 6.0 - 8.3 g/dL Final Albumin 09/20/2024 3.7 3.5 - 5.7 g/dL Final Total Bilirubin 09/20/2024 0.5 0.3 - 1.0 mg/dL Final eGFR 09/20/2024 67.0 >60.0 mL/min/1.73m*2 Final [facility]???s estimated glomerular filtration rate (eGFR) [...] disproportionately affect any one group of individuals. Auto WBC 09/20/2024 7.70 4.00 - 10.60 10*3/uL Final RBC 09/20/2024 4.24 3.80 - 5.00 10*6/uL Final Hemoglobin 09/20/2024 12.7 12.0 - 15.0 g/dL Final Hematocrit 09/20/2024 39.7 36.0 - 48.0 % Final MCV 09/20/2024 93.6 82.0 - 98.0 fL Final MCH 09/20/2024 30.0 27.0 - 33.0 pg Final MCHC 09/20/2024 32.0 32.0 - 35.0 g/dL Final RDW 09/20/2024 13.4 11.5 - 15.0 % Final Neutrophils Relative 09/20/2024 65.9 40.0 - 72.0 % Final Lymphocytes Relative 09/20/2024 22.6 20.0 - 45.0 % Final Monocytes Relative 09/20/2024 9.5 5.0 - 12.0 % Final Eosinophils Relative 09/20/2024 1.6 0.0 - 6.0 % Final Basophils Relative 09/20/2024 0.4 0.0 - 1.0 % Final Neutrophils Absolute 09/20/2024 5.08 1.60 - 7.60 10*3/uL Final Lymphocytes Absolute 09/20/2024 1.74 1.20 - 4.00 10*3/uL Final Monocytes Absolute 09/20/2024 0.73 0.10 - 1.00 10*3/uL Final Eosinophils Absolute 09/20/2024 0.12 0.00 - 0.50 10*3/uL Final Basophils Absolute 09/20/2024 0.03 0.00 - 0.20 10*3/uL Final Platelets 09/20/2024 286 150 - 400 10*3/uL Final nRBC % 09/20/2024 0.0 0 % Final Immature Granulocytes Relative 09/20/2024 0.5 0.0 - 1.0 % Final Immature Granulocytes Absolute 09/20/2024 0.04 0.00 - 0.20 10*3/uL Final MR brain wo contrast Result Date: 09/20/2024 Moderate periventricular FLAIR hyperintensities, most often seen setting of chronic microvascular ischemia. 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 No acute intracranial abnormality. Electronically signed: Otilio Wilson MD. Assessment/Plan 83 y.o. female who was transferred from [facility] to [facility] on 09/17/2024 with cholelithiasis and acute cholecystitis. Neurology consulted today due to altered mental status. Neuro exam non focal. Family agrees much improvement in patients mentation since yesterday. TSH 0.04. Today's CMP and CBC results are unremarkable MRI brain imaging reviewed with Dr. Derrick Davis showing sequelae nonacute lacunar infarct right centrum semiovale. Impression: Mild mental status changes in the setting of UTI with improvement Plan: -Continue medical mgmt per primary team. No further recommends for neuro standpoint at this time. -Patient examined by Dr. Bacon, neurologist -Sign off Shelia Newton CNP 09/20/24 at 3:14 PM [facility] Neurology 8:30 am - 4 pm weekdays (M,T,W,F) in house: [phone] 4 pm - 8 am or weekends or holidays: Please contact the multifold operator to page the attending investor relations analyst. This consult note was completed using a voice manager of software system. Every effort was made to ensure accuracy; however, inadvertent computerized manager of software errors may be present. PROGRESS Observed: 09/20/2024 8:56 AM Status: COMPLETED Source: [facility] Gastroenterology Plan of Car e Patient underwent EGD this morning for further [...] We will arrange for outpatient repeat EGD. PROGRESS Observed: 09/20/2024 8:40 AM Status: COMPLETED Source: [facility] Occupational Therapy Name: Saeed Sarabia Date of : 1940 Today's Date: 09/20/24 Pt is unable to be seen for therapy at this time secondary to patient off the floor at this time for EGD per RN . Will check back and complete therapy session as appropriate. Check No Charge Time attempted: 0840A PROGRESS Observed: 09/20/2024 8:14 AM Status: COMPLETED Source: [facility] Hospital Medicine Daily Progress Note - 09/20/2024 8:14 AM; Room: [address] [place] [address] Admission: 09/17/2024 7:02 PM; Length of stay: 3 days THE HOSPITALIST TEAM PREFERS TO USE [employer] CHAT FOR NON-URGENT COMMUNICATION 7AM-7PM. IF I DO NOT RESPOND WITHIN 20 MINUTES OR URGENT MATTERS, PLEASE CALL THROUGH THE DIRECTOR OF CLOUD SERVICES. FROM 7PM-7AM, PLEASE PAGE [phone](COVR). Code Status: Full Code Barriers to Discharge: [...] FREET4 1.38 09/18/2024 No results found for: [id number] , IRON , TIBC , C3 , C4 , AUTUMN , CANCA , ASO , PSA , CEA , CA125 , CA199 , AFP , CA153 Imaging EGD Table formatting from the original result was not included. Esophagogastroduodenoscopy (EGD) Procedure Note Procedure: EGD with anesthesia Indications: 83 y.o. female referred for EGD for evaluation of abdominal pain Sedation: MAC Medications: No administrations occurring from 0743 to 0801 on 09/20/24 Attending Physician: Dania Sandoval MD Clinical Cytogeneticist Scientist: None Procedure Details: Informed consent was obtained for the procedure, including sedation. Risks of infection, perforation, hemorrhage, adverse drug reaction, and aspiration were discussed. The patient was placed in the left lateral decubitus position. The patient was monitored continuously with ECG tracing, pulse oximetry, blood pressure monitoring, and direct observation. The gastroscope was inserted into the mouth and advanced under direct vision to third portion of the duodenum. A careful inspection was made as the gastroscope was withdrawn, including a retroflexed view of the proximal stomach; findings and interventions are described below. Appropriate photodocumentation was obtained. Findings: Mild LA grade A esophagitis Two small ulcers in the gastric body with overlying adherent clots. The ulcers were not bleeding Gastritis and two healing clean based ulcers in the gastric antrum Multiple ulcers in D2 and D3. Some were clean base and a few had overlying flat pigmented spots Specimens: No specimens collected Complications: None Estimated blood loss: None Disposition: Return to inpatient [facility] Condition: stable Impression: Mild LA grade A esophagitis Two small ulcers in the gastric body with overlying adherent clots. The ulcers were not bleeding Gastritis and two healing clean based ulcers in the gastric antrum Multiple ulcers in D2 and D3. Some were clean base and a few had overlying flat pigmented spots Recommendations: PPI BID H. Pylori stool antigen Repeat EGD in 8 weeks to assess for ulcer healing Attending Attestation: I performed the procedure. MR brain wo contrast Narrative: MR BRAIN WO CONTRAST 09/19/2024 3:46 PM HISTORY: Mental status change, [...] thickening ethmoid air cells. A dentulous maxilla. Impression: Moderate periventricular FLAIR hyperintensities, most often seen setting of chronic microvascular ischemia. 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 No acute intracranial abnormality. Electronically signed: Otilio Wilson MD. Discharge Planning Expected Discharge Disposition: Intermediate Facility (03) PT Discharge Recommendations: retirement facility placement OT Discharge Recommendations: retirement facility placement (vs return home with 24 hour supervision and Home OT) Signed Kayleigh Rivera MD Hospital Medicine 09/20/2024 8:14 AM NURSNOTE Observed: 09/20/2024 8:00 AM Status: COMPLETED Source: [facility] May resume a Regular Diet, w ith strict anti-reflux measures. May resume all medications as ordered by admitting physician. New prescription for Pantoprazole 40 mg PO BID. Repeat EGD Scope outpatient in 8 weeks for evaluation on ulcers and biopsy samples. NURSNOTE Observed: 09/20/2024 7:57 AM Status: COMPLETED Source: [facility] EGD Findings: Gastric Ulcers ; Duodenal Ulcers; LA Grade A Esophagitis NURSNOTE Observed: 09/20/2024 7:57 AM Status: COMP LETED Source: [facility] . ANES Observed: 09/20/2024 7:40 AM Status: COMPLETED Source: [facility] Patient: Saeed Sarabia Procedure Information Date/Time: 09/20/24 0800 Scheduled providers: Shelly Ricks MD; ROB Dumont; Dania Sandoval MD Procedure: EGD Location: [facility] Main Operating Room Relevant Problems Cardio (+) [...] Plan discussed with CAA. Additional Equipment Requests HP Observed: 09/20/2024 7:36 AM Status: COMPLETED Source: [facility] H&P reviewed. The patient wa s examined and there are no changes to the H&P. COMPREHENSIVE METABOLIC PANEL Collected: 09/20/2024 6 :04 AM Status: UNK Source: [facility] TYPE CODE TESTS RESULT OUT OF RANGE REFERENCE UNITS LAB [id number] SODIUM (MMOL/L) IN SER/PLAS 138 136-145 mmol/L LAB [id number] POTASSIUM (MMOL/ L) IN SER/PLAS 4.1 3.5-5.1 mmol/L LAB [id number] CHLORIDE (MMOL/L ) IN SER/PLAS 104 98-107 mmol/L LAB 0279109 CARBON DIOXIDE, TOTAL (MMOL/L) IN SER/PLAS 27 21-31 mmol/L LAB [id number] ANION GAP IN SER/PLAS 11 7-20 mmol/L LAB 9134759 UREA NITROGEN (MG/DL) IN SER/PLAS 12 7-25 mg/dL LAB [id number] CREATININE (MG/D L) IN SER/PLAS 0.86 0.60-1.20 mg/dL LAB [id number] UREA NITROGEN/CREATININ E (MASS RATIO) IN SER/PLAS 14.0 NA LAB [id number] GLUCOSE (MG/DL) IN SER/PLAS 115 High 70-100 mg/dL LAB [id number] CALCIUM (MG/DL) IN SER/PLAS 9.0 8.6-10.3 mg/dL LAB 0537865 ASPARTATE AMINOTRANSFERASE (SGOT) (U/L) IN SER/PLAS 22 13-39 U/L LAB 1869373 ALANINE AMINOTRANSFERASE (SGPT) (U/L) IN SER/PLAS 12 7-52 U/L LAB [id number] ALKALINE PHOSPHATASE (U/L) IN SER/PLAS 44 34-104 U/L LAB 2997302 PROTEIN (G/DL) I N SER/PLAS 6.2 6.0-8.3 g/dL LAB 3005073 ALBUMIN (G/DL) I N SER/PLAS 3.7 3.5-5.7 g/dL LAB 1200916 BILIRUBIN TOTAL (MG/DL) IN SER/PLAS 0.5 0.3-1.0 mg/dL LAB 2796330 GLOMERULAR FILTRATION RATE ML/MIN/1.73 SQ M.PREDICTED 67.0 >60.0 mL/min /1.73m *2 Result Comment: [facility]???s estimated glomerular filtration rate (eGFR) will no [...] one group of individuals. Performed By: #### [id number] ### # [facility] ([facility]) [address] [place] [address] CBC WITH AUTO DIFFERENTIAL Collected: 09/20/2024 6:03 AM Status: UNK Source: [facility] TYPE CODE TESTS RESULT OUT OF RANGE REFERENCE UNITS LAB [id number] LEUKOCYTES(10*3/ UL) IN BLOOD BY AUTOMATED COUNT 7.70 4.00-10.60 10*3/uL LAB 4078782 ERYTHROCYTES (10*6/UL) IN BLOOD BY AUTOMATED COUNT 4.24 3.80-5.00 10*6/uL LAB 6232080 HEMOGLOBIN (G/DL) IN BLOOD 12.7 12.0-15.0 g/dL LAB 8253796 HEMATOCRIT (%) IN BLOOD BY AUTOMATED COUNT 39.7 36.0-48.0 % LAB 7671976 ERYTHROCYTE MEAN CORPUSCULAR VOLUME (FL) BY AUTOMATED COUNT 93.6 82.0-98.0 fL LAB 9901629 ERYTHROCYTE MEAN CORPUSCULAR HEMOGLOBIN (PG) BY AUTOMATED COUNT 30.0 27.0-33.0 pg LAB 4346754 ERYTHROCYTE MEAN CORPUSCULAR HEMOGLOBIN CONCENTRATION (G/DL) BY AUTOMATED 32.0 32.0-35.0 g/dL LAB 6160495 ERYTHROCYTE DISTRIBUTION WIDTH (RATIO) BY AUTOMATED COUNT 13.4 11.5-15.0 % LAB 6076559 NEUTROPHILS/100 LEUKOCYTES IN BLOOD BY AUTOMATED COUNT 65.9 40.0-72.0 % LAB [id number] LYMPHOCYTES/100 LEUKOCYTES IN BLOOD BY AUTOMATED COUNT 22.6 20.0-45.0 % LAB 9220942 MONOCYTES/100 LEUKOCYTES IN BLOOD BY AUTOMATED COUNT 9.5 5.0-12.0 % LAB 4176791 EOSINOPHILS/100 LEUKOCYTES IN BLOOD BY AUTOMATED COUNT 1.6 0.0-6.0 % LAB 2793771 BASOPHILS/100 LEUKOCYTES IN BLOOD BY AUTOMATED COUNT 0.4 0.0-1.0 % LAB 8286153 NEUTROPHILS (10*3/UL) IN BLOOD BY AUTOMATED COUNT 5.08 1.60-7.60 10*3/uL LAB 2726050 LYMPHOCYTES (10*3/UL) IN BLOOD BY AUTOMATED COUNT 1.74 1.20-4.00 10*3/uL LAB 6333375 MONOCYTES (10*3/UL) IN BLOOD BY AUTOMATED COUNT 0.73 0.10-1.00 10*3/uL LAB 7247396 EOSINOPHILS (10*3/UL) IN BLOOD BY AUTOMATED COUNT 0.12 0.00-0.50 10*3/uL LAB [id number] BASOPHILS (10*3/UL) IN BLOOD BY AUTOMATED COUNT 0.03 0.00-0.20 10*3/uL LAB 0344131 PLATELETS (10*3/UL) IN BLOOD AUTOMATED COUNT 286 150-400 10*3/uL LAB 254 NRBC (PER 100 WBCS) BY AUTOMATED COUNT 0.0 0 % LAB 1767 IMMATURE GRANULOCYTES/100 LEUKOCYTES IN BLOOD BY AUTOMATED COUNT 0.5 0.0-1.0 % LAB 1768 IMMATURE GRANULOCYTES (10*3/UL) IN BLOOD BY AUTOMATED COUNT 0.04 0.00-0.20 10*3/uL Performed By: #### [id number] # ### [facility] ([facility]) [address] [place] [address] 30 Observed: 09/19/2024 10:47 PM Status: COMPLETED Source: [facility] The patient is Moderately St able - Low risk of patient condition declining or worsening The patient's goals for the shift include comfort The clinical goals for the shift include VSS, comfort POCT GLUCOSE METER UNSOLICIT ED RESULTS Collected: 09/19/2024 9:09 PM Status: UNK Source: [facility] Order Comment: Waived Testin g in the ED is performed under the ED CLIA certificate #[id number]. TYPE CODE TESTS RESULT OUT OF RANGE REFERENCE UNITS LAB 885 POCT GLUCOSE 140 High 70-105 mg/dL Result Comment: [email or web address] Performed By: #### [id number] #### [facility] ([facility]) [address] [place] [address] POCT GLUCOSE METER UNSOLICIT ED RESULTS Collected: 09/19/2024 5:28 PM Status: UNK Source: [facility] Order Comment: Waived Testin g in the ED is performed under the ED CLIA certificate #[id number]. TYPE CODE TESTS RESULT OUT OF RANGE REFERENCE UNITS LAB 885 POCT GLUCOSE 146 High 70-105 mg/dL Result Comment: [email or web address] Performed By: #### [id number] #### [facility] ([facility]) [address] [place] [address] PROGRESS Observed: 09/19/2024 2:48 PM Status: COMPLETED Source: [facility] Patient and family are [facility] SN[facility]. No discharge needs at this time. POCT GLUCOSE METER UNSOLICIT ED RESULTS Collected: 09/19/2024 12:15 PM Status: UNK Source: [facility] Order Comment: Waived Testin g in the ED is performed under the ED CLIA certificate #[id number]. TYPE CODE TESTS RESULT OUT OF RANGE REFERENCE UNITS LAB 885 POCT GLUCOSE 198 High 70-105 mg/dL Result Comment: [email or web address] Performed By: #### [id number] #### [facility] ([facility]) [address] [place] [address] PROGRESS Observed: 09/19/2024 9:23 AM Status: COMPLETED Source: [facility] Attestation signed by Nitin Carroll MD at [...] changes as necessary to ensure accurate documentation. [facility] General Surgery DAILY PROGRESS NOTE [...] purposes Ryan Rodríguez MD PGY-3 Surgery Resident PROGRESS Observed: 09/19/2024 8:34 AM Status: COMPLETED Source: [facility] Attestation signed by Aubrie Vogt PT at 09/19/2024 3:25 PM This technical proposal writer present and provided 1:1 supervision, direction of patient care and assistance with development of plan of care. Aubrie Vogt PT, MPT Physical Therapy Evaluation Patient [...] is a 83 y.o. female presenting from [facility] with c/o abdominal pain and AMS x4 days. Per facility report, [facility] did not have a surgery bed available, so pt will be getting surgery at [facility]. Pt was diagnosed with cholelithiasis and finished [...] (e.g. wheelchair or bedside chair) 3 Help from another person to walk in hospital room 3 Help from another person climbing 3-5 steps with a railing 2 Mobility 6 Clicks T-Score 17 Assessment Patient will benefit from Skilled Physical Therapy Services due to demonstrating limited functional mobility secondary to decreased strength, endurance, and gait/balance impairments. These impairments limit the patient's ability to perform daily tasks including walking, performing basic ADLs, performing transfers. Skilled PT to address impairments and facilitate return to safe and prior level of mobility and functional tasks following hospitalization for acute cholecystitis. Pt would benefit from cont skilled PT to regain functional mobility/independence and ensure safe return to PLOF. Pt limited by fatigue and deconditioning due to medical complexities. Daughter reports cognitive changes began 1-2 months, worsening 2-3 weeks ago. Current cognitive impairment limits safety. Director Of Campus Recreation assumes patient will need prolonged rehab stay to return to safe mobility. Interventions Fall Prevention strategies, Therapeutic Exercise, Dynamic Balance interventions, Gait Training, Education, Functional Mobility, and Endurance Training Plan PT Misc Pt to ambulate 150' independently with use of rolling walker to improve ability to safely navigate home to safely navigating small spaces and ensure proper alignment before sitting. Patient will perform bed mobility from flat bed independently without use of bed rails. Maximize strength B hip and knee extensors, and BUE triceps and lats to facilitate return to independent bed mobility and for ease of transfers and gait. Pt to progress seated and standing balance to allow return to prior level of functional activity, ADLs and tasks. Student PT, Lona Reyes, was involved in the care of this patient with direct supervision of the cosigning therapist, who was present and actively involved in the patient's care. Lona Reyes, SPT AMMONIA Collected: 8:29 AM Status: UNK Source: [facility] TYPE CODE TESTS RESULT OUT OF RANGE REFERENCE UNITS LAB [id number] AMMONIA (UMOL/L) IN PLASMA 25 18-72 umol/L Performed By: #### [id number] ### # [facility] ([facility]) [address] [place] [address] PROGRESS Observed: 09/19/2024 8:17 AM Status: COMPLETED Source: [facility] Medicine Daily Progress Note - 09/19/2024 8:17 AM; Room: [address] [place] [address] Admission: 09/17/2024 7:02 PM; Length of stay: 2 days THE HOSPITALIST TEAM PREFERS TO USE [employer] CHAT FOR NON-URGENT COMMUNICATION 7AM-7PM. IF I DO NOT RESPOND WITHIN 20 MINUTES OR URGENT MATTERS, PLEASE CALL THROUGH THE DIRECTOR OF CLOUD SERVICES. FROM 7PM-7AM, PLEASE PAGE [phone](COVR). Code Status: Full Code Barriers to Discharge: [...] FREET4 1.38 09/18/2024 No results found for: [id number] , IRON , TIBC , C3 , [...] cholecystitis. Electronically signed: Felicita Leal. Discharge Planning Expected Discharge Disposition: Intermediate Facility (03) OT Discharge Recommendations: retirement facility placement (vs return home with 24 hour supervision and Home OT) Signed Kayleigh Rivera MD Hospital Medicine 09/19/2024 8:17 AM 30 Observed: 09/19/2024 8:12 AM Status: COMPLETED Source: [facility] Daily Case Management Update Barriers to Discharge et per Progress [...] the patient Other Other: Facilitate discharge plans 09/17/242216Therapy Orders (From admission, onward) Start Ordered 09/17/242213 PT eval and treat Until therapy completed Question: Reason for PT? Answer: Evaluate and treat 09/17/[id number]/18/232213 OT eval and treat Until therapy completed Question: Reason for OT? Answer: Evaluate and treat 09/17/242216 POCT GLUCOSE METER UNSOLICIT ED RESULTS Collected: 09/19/2024 7:42 AM Status: UNK Source: [facility] Order Comment: Waived Testin g in the ED is performed under the ED CLIA certificate #[id number]. TYPE CODE TESTS RESULT OUT OF RANGE REFERENCE UNITS LAB 885 POCT GLUCOSE 151 High 70-105 mg/dL Result Comment: [email or web address] Performed By: #### [id number] #### [facility] ([facility]) [address] [place] [address] PROGRESS Observed: 09/19/2024 7:27 AM Status: COMPLETED Source: [facility] Attestation signed by Nitin Carroll MD at [...] changes as necessary to ensure accurate documentation. [facility] General Surgery DAILY PROGRESS NOTE [...] millicurie, intravenous, Once in imaging Imaging: NM Yoana [facility] Pharm Narrative: [facility] [...] Salvador Alcazar MD General Surgery Resident, PGY-2 [facility] CBC WITH AUTO DIFFERENTIAL Collected: 09/19/2024 5:25 AM Status: UNK Source: [facility] TYPE CODE TESTS RESULT OUT OF RANGE REFERENCE UNITS LAB [id number] LEUKOCYTES(10*3/ UL) IN BLOOD BY AUTOMATED COUNT 10.39 4.00-10.60 10*3/uL LAB 1532547 ERYTHROCYTES (10*6/UL) IN BLOOD BY AUTOMATED COUNT 4.44 3.80-5.00 10*6/uL LAB 8422317 HEMOGLOBIN (G/DL) IN BLOOD 13.4 12.0-15.0 g/dL LAB 7243680 HEMATOCRIT (%) IN BLOOD BY AUTOMATED COUNT 41.3 36.0-48.0 % LAB 2158443 ERYTHROCYTE MEAN CORPUSCULAR VOLUME (FL) BY AUTOMATED COUNT 93.0 82.0-98.0 fL LAB 0454902 ERYTHROCYTE MEAN CORPUSCULAR HEMOGLOBIN (PG) BY AUTOMATED COUNT 30.2 27.0-33.0 pg LAB 9018246 ERYTHROCYTE MEAN CORPUSCULAR HEMOGLOBIN CONCENTRATION (G/DL) BY AUTOMATED 32.4 32.0-35.0 g/dL LAB 1144831 ERYTHROCYTE DISTRIBUTION WIDTH (RATIO) BY AUTOMATED COUNT 13.2 11.5-15.0 % LAB 9228496 NEUTROPHILS/100 LEUKOCYTES IN BLOOD BY AUTOMATED COUNT 69.7 40.0-72.0 % LAB 8757201 LYMPHOCYTES/100 LEUKOCYTES IN BLOOD BY AUTOMATED COUNT 20.7 20.0-45.0 % LAB 4390027 MONOCYTES/100 LEUKOCYTES IN BLOOD BY AUTOMATED COUNT 8.7 5.0-12.0 % LAB 2522668 EOSINOPHILS/100 LEUKOCYTES IN BLOOD BY AUTOMATED COUNT 0.3 0.0-6.0 % LAB 0015104 BASOPHILS/100 LEUKOCYTES IN BLOOD BY AUTOMATED COUNT 0.3 0.0-1.0 % LAB 4974762 NEUTROPHILS (10*3/UL) IN BLOOD BY AUTOMATED COUNT 7.25 1.60-7.60 10*3/uL LAB 3476358 LYMPHOCYTES (10*3/UL) IN BLOOD BY AUTOMATED COUNT 2.15 1.20-4.00 10*3/uL LAB 0969334 MONOCYTES (10*3/UL) IN BLOOD BY AUTOMATED COUNT 0.90 0.10-1.00 10*3/uL LAB 4256952 EOSINOPHILS (10*3/UL) IN BLOOD BY AUTOMATED COUNT 0.03 0.00-0.50 10*3/uL LAB 4235165 BASOPHILS (10*3/UL) IN BLOOD BY AUTOMATED COUNT 0.03 0.00-0.20 10*3/uL LAB 7094911 PLATELETS (10*3/UL) IN BLOOD AUTOMATED COUNT 333 150-400 10*3/uL LAB 254 NRBC (PER 100 WBCS) BY AUTOMATED COUNT 0.0 0 % LAB 1767 IMMATURE GRANULOCYTES/100 LEUKOCYTES IN BLOOD BY AUTOMATED COUNT 0.3 0.0-1.0 % LAB 1768 IMMATURE GRANULOCYTES (10*3/UL) IN BLOOD BY AUTOMATED COUNT 0.03 0.00-0.20 10*3/uL Performed By: #### [id number] # ### [facility] ([facility]) [address] [place] [address] COMPREHENSIVE METABOLIC PANEL Collected: 09/19/2024 5 :25 AM Status: UNK Source: [facility] TYPE CODE TESTS RESULT OUT OF RANGE REFERENCE UNITS LAB 8250550 SODIUM (MMOL/L) IN SER/PLAS 137 136-145 mmol/L LAB 1882706 POTASSIUM (MMOL/ L) IN SER/PLAS 4.0 3.5-5.1 mmol/L LAB 6526956 CHLORIDE (MMOL/L ) IN SER/PLAS 102 98-107 mmol/L LAB 8462961 CARBON DIOXIDE, TOTAL (MMOL/L) IN SER/PLAS 25 21-31 mmol/L LAB 1145823 ANION GAP IN SER/PLAS 14 7-20 mmol/L LAB 6630750 UREA NITROGEN (MG/DL) IN SER/PLAS 12 7-25 mg/dL LAB 2221327 CREATININE (MG/D L) IN SER/PLAS 0.79 0.60-1.20 mg/dL LAB 2659614 UREA NITROGEN/CREATININ E (MASS RATIO) IN SER/PLAS 15.2 NA LAB 3237034 GLUCOSE (MG/DL) IN SER/PLAS 147 High 70-100 mg/dL LAB 3742520 CALCIUM (MG/DL) IN SER/PLAS 9.4 8.6-10.3 mg/dL LAB 1706694 ASPARTATE AMINOTRANSFERASE (SGOT) (U/L) IN SER/PLAS 18 13-39 U/L LAB 1409276 ALANINE AMINOTRANSFERASE (SGPT) (U/L) IN SER/PLAS 11 7-52 U/L LAB 2392836 ALKALINE PHOSPHATASE (U/L) IN SER/PLAS 49 34-104 U/L LAB 1065245 PROTEIN (G/DL) I N SER/PLAS 6.5 6.0-8.3 g/dL LAB 4868398 ALBUMIN (G/DL) I N SER/PLAS 4.0 3.5-5.7 g/dL LAB 2858811 BILIRUBIN TOTAL (MG/DL) IN SER/PLAS 0.5 0.3-1.0 mg/dL LAB 3013345 GLOMERULAR FILTRATION RATE ML/MIN/1.73 SQ M.PREDICTED 74.2 >60.0 mL/min /1.73m *2 Result Comment: [facility]???s estimated glomerular filtration rate (eGFR) will no [...] one group of individuals. Performed By: #### [id number] ### # [facility] ([facility]) [address] [place] [address] MAGNESIUM Collected: 09/19/2024 5:25 AM Status: UN K Source: [facility] TYPE CODE TESTS RESULT OUT OF RANGE REFERENCE UNITS LAB [id number] MAGNESIUM (MG/DL) IN SER/PLAS 1.7 Low 1.9-2.7 mg/dL Performed By: #### [id number] ## ## [facility] ([facility]) [address] [place] [address] 30 Observed: 09/18/2024 11:43 PM Status: COMPLETED Source: [facility] The patient is Moderately St able - Low risk of patient condition declining or worsening The patient's goals for the shift include comfort The clinical goals for the shift include comfort POCT GLUCOSE METER UNSOLICIT ED RESULTS Collected: 09/18/2024 8:29 PM Status: UNK Source: [facility] Order Comment: Waived Testin g in the ED is performed under the ED CLIA certificate #[id number]. TYPE CODE TESTS RESULT OUT OF RANGE REFERENCE UNITS LAB 885 POCT GLUCOSE 154 High 70-105 mg/dL Result Comment: [email or web address] Performed By: #### [id number] #### [facility] ([facility]) [address] [place] [address] POCT GLUCOSE METER UNSOLICIT ED RESULTS Collected: 09/18/2024 6:03 PM Status: UNK Source: [facility] Order Comment: Waived Testin g in the ED is performed under the ED CLIA certificate #[id number]. TYPE CODE TESTS RESULT OUT OF RANGE REFERENCE UNITS LAB 885 POCT GLUCOSE 211 High 70-105 mg/dL Result Comment: [email or web address] Performed By: #### [id number] #### [facility] ([facility]) [address] [address] 30 Observed: 09/18/2024 5:20 PM Status: COMPLETED Source: [facility] Daily Case Management Update Multidisciplinary rounds have been completed. Barriers to Discharge: Patient is a transfer from [place] for c/o abd pain, AMS and CT [...] the patient Other Other: Facilitate discharge plans 09/17/242216Therapy Orders (From admission, onward) Start Ordered 09/17/242213 PT eval and treat Until therapy completed Question: Reason for PT? Answer: Evaluate and treat 09/17/24 [id number] OT eval and treat Until therapy completed Question: Reason for OT? Answer: Evaluate and treat 09/17/242216 MR BRAIN WO CONTRAST Observed: 4 3:14 PM Status: UNK Source: [facility] MR BRAIN WO CONTRAST 024 3:46 PM HISTORY: Mental status change, persistent [...] abnormality. Electronically signed: Otilio Wilson MD. 8 PROGRESS Observed: 09/18/2024 12:59 PM Status: COMPLETED Source: [facility] Physical Therapy Cancellatio n Patient unable to be seen for therapy [...] pain medication and would like to rest. Director Of Campus Recreation relayed to RN, family's concern that patient is NPO and has not had IV hydration during stay. RN reports MD is to talk w/ family. [] Other [] PT being discontinued at this time. Patient independent. No further needs. [] PT being discontinued at this time as the patient has been transferred to hospice care. No further needs. Will follow and initiate session Aubrie Vogt PT, [facility] POCT GLUCOSE METER UNSOLICIT ED RESULTS Collected: 09/18/2024 11:55 AM Status: UNK Source: [facility] Order Comment: Waived Testin g in the ED is performed under the ED CLIA certificate #[id number]. TYPE CODE TESTS RESULT OUT OF RANGE REFERENCE UNITS LAB 885 POCT GLUCOSE 170 High 70-105 mg/dL Result Comment: [email or web address] Performed By: #### [id number] #### [facility] ([facility]) [address] [place] [address] HP Observed: 09/18/2024 9:42 AM Status: COMPLETED Source: [facility] Attestation signed by Anaya Khanna MD at [...] peptic ulcer disease September 19, 2024. Initial Gastroenterology/Hepatology Consultation Note IDENTIFYING DATA PATIENT: Saeed Sarabia ADMIT DATE: 09/17/2024 TIME OF EVALUATION: 09/18/2024 9:42 AM Reason for Consult: Abdominal pain and cholelithiasis/Cholecystitis Admitting Physician: Kayleigh Rivera MD HISTORY OF PRESENT ILLNESS Saeed Sarabia is a 83 y.o. female with a known past medical history significant for diabetes mellitus, hypertension, CAD s/p stent placement, HLD, A-fib on Eliquis, history of lumbar stenosis and lower back pain who was transferred from [facility] ER due to abdominal pain and the diagnosis of cholelithiasis with acute cholecystitis. History was taken from chart since the patient was a poor historian. The story of the patient goes back to 2 months ago when she has been complaining of abdominal pain, poor appetite and worsening her mental status. She was taken to [facility] ER for the evaluation of the abdominal [...] Atrial fibrillation (CMS/HCC) CHF (congestive heart failure) ([facility]/HCC) Coronary artery disease Diabetes mellitus ([facility]) Heart valve disease Hyperlipidemia Hypertension Past Surgical [...] if needed (leg swelling and dyspnea). 02/02/24 Moni Roberson MD ezetimibe (Zetia) 10 mg tablet Take 1 tablet (10 mg) by mouth once daily as directed. 05/22/24 05/22/25 Moni Roberson MD glipiZIDE (Glucotrol) 5 mg tablet Take 1 tablet by mouth in the morning and at bedtime. Historical Provider, lisinopril 20 mg tablet Take 1 tablet (20 mg) by mouth in the morning. 02/02/24 02/01/25 Moni Roberson MD metFORMIN (Glucophage) 1,000 mg tablet [...] A TABLET BY MOUTH EVERY DAY 09/03/24 Moni Roberson MD tiZANidine (Zanaflex) 4 mg tablet [...] water (D50W), 25 g, q15 min PRN ondansetron ODT, 4 mg, q8h PRN Or ondansetron, 4 mg, q6h PRN sennosides-docusate sodium, 1 tablet, BID PRN REVIEW OF SYSTEMS See HPI, otherwise ROS negative as below CONSTITUTIONAL: negative HEENT: negative RESPIRATORY: negative CARDIOVASCULAR: negative GASTROINTESTINAL: as in HPI GENITOURINARY: negative OBJECTIVE DATA Vitals: BP 135/69 Pulse 82 Temp 36.6 ???C (97.9 ???F) Resp 16 Ht 1.676 m (5' 6 ) Wt 73.1 kg (161 lb 2.5 oz) SpO2 97% BMI 26.01 kg/m??? GEN: Alert and oriented x3, NAD HEENT: Atraumatic, normocephalic CV: Regular rate and rhythm PULM: Breathing comfortably ABD: Soft, non-tender, non-distended NEURO: Moves all 4 extremities spontaneously LABS AND IMAGING CBC: Results from last 7 days Lab Units 09/18/24 0709/17/241946 WBC AUTO 10*3/uL 6.54 7.10 RBC AUTO 10*6/uL 4.04 4.27 HEMOGLOBIN g/dL 12.3 12.9 HEMATOCRIT % 39.1 39.0 MCV fL 96.8 91.3 RDW % 13.2 13.1 PLATELETS AUTO 10*3/uL 284 301 PT/INR BMP: Results from last 7 days Lab Units 09/18/24 0720 09/17/241945 SODIUM mmol/L 138 136 POTASSIUM mmol/L 4.0 4.2 CHLORIDE mmol/L 102 102 BUN mg/dL 17 16 CREATININE mg/dL 0.72 0.68 EGFR mL/min/1.73m*2 82.9 86.4 GLUCOSE mg/dL 112* 128* LFTs: Results from last 7 days Lab Units 09/17/241945 BILIRUBIN TOTAL mg/dL 0.5 ALK PHOS U/L 43 AST U/L 15 ALT U/L 11 ALBUMIN g/dL 3.9 TOTAL PROTEIN g/dL 6.7 B12/Folate/Iron studies: No results found for: [id number] , FOLATE , IRON , TIBC , UIBC , IRONSAT , FERRITIN Viral Hepatitis No results found for: HEPAIGM , HAV , HEPBSAG , HEPBSAB , HEPBEAB , HEPBIGM , HEPBCAB , HEPBCOREAB , HBVNAT , HCVSCR , HEPCAB , HCVNAT , HCVPCR , HCVTMA Liver workup No results found for: AUTUMN , SMOOTHMUSCAB , CERULOPLSM , [id number] , TTGA , IGA , TSH , FREET4 , AFP Pancreatitis Lab Results Component Value Date LIPASE 27 09/17/2024 CALCIUM 9.0 09/18/2024 IMAGING: N/A ASSESSMENT AND PLAN Saeed Sarabia is a 83 y.o. female with a known past medical history significant for diabetes mellitus, hypertension, CAD s/p stent placement, HLD, A-fib on Eliquis, history of lumbar stenosis and lower back pain who was transferred from [facility] ER due to abdominal pain and the diagnosis of cholelithiasis with acute cholecystitis. History was taken from chart since the patient was a poor historian. The story of the patient goes back to 2 months ago when she has been complaining of abdominal pain, poor appetite and worsening her mental status. She was taken to [facility] ER for the evaluation of the abdominal pain. CT scan of the abdomen and pelvis there showed significant cholelithiasis with findings suggestive of acute cholecystitis. Therefore, the patient was transferred to our facility for further evaluation. Upon my assessment: Patient was afebrile and hemodynamically stable. CBC unremarkable. CMP showed normal lipase and LFTs. Abdominal exam was unremarkable. Assessment Cholelithiasis with possible acute cholecystitis on CT scan: CTAP showed findings suggestive of cholelithiasis with possible acute cholecystitis. LFTs are within normal limits. Lipase within normal limits. Abdominal exam unremarkable. General surgery on board. HIDA scan ordered. Plan Currently, no concerns for choledocholithiasis based on the labs and imaging report. No indication for ERCP or endoscopic evaluation for the time being. General surgery on board. Appreciate their recommendations. No further intervention from GI perspective. GI service will follow peripherally. Please call us back if you have any questions or concerns. This consult will be discussed with attending physician. If you have any questions please feel free to contact the GI Service. Thank you for allowing us to participate in the care of Saeed Sarabia. Gastroenterology 6 am to 4 pm weekdays in house: [phone] 4 pm to 6 am or weekends: Please contact the multifold operator to page the fellow investor relations analyst CONSULT Observed: 09/18/2024 9:42 AM Status: COMPLETED Source: [facility] Attestation signed by Anaya Khanna MD at [...] peptic ulcer disease September 19, 2024. Initial Gastroenterology/Hepatology Consultation Note IDENTIFYING DATA PATIENT: Saeed Sarabia ADMIT DATE: 09/17/2024 TIME OF EVALUATION: 09/18/2024 9:42 AM Reason for Consult: Abdominal pain and cholelithiasis/Cholecystitis Admitting Physician: Kayleigh Rivera MD HISTORY OF PRESENT ILLNESS Saeed Sarabia is a 83 y.o. female with a known past medical history significant for diabetes mellitus, hypertension, CAD s/p stent placement, HLD, A-fib on Eliquis, history of lumbar stenosis and lower back pain who was transferred from [facility] ER due to abdominal pain and the diagnosis of cholelithiasis with acute cholecystitis. History was taken from chart since the patient was a poor historian. The story of the patient goes back to 2 months ago when she has been complaining of abdominal pain, poor appetite and worsening her mental status. She was taken to [facility] ER for the evaluation of the abdominal [...] if needed (leg swelling and dyspnea). 02/02/24 Moni Roberson MD ezetimibe (Zetia) 10 mg tablet Take 1 tablet (10 mg) by mouth once daily as directed. 05/22/24 05/22/25 Moni Roberson MD glipiZIDE (Glucotrol) 5 mg tablet Take 1 tablet by mouth in the morning and at bedtime. Historical Provider, lisinopril 20 mg tablet Take 1 tablet (20 mg) by mouth in the morning. 02/02/24 02/01/25 Moni Roberson MD metFORMIN (Glucophage) 1,000 mg tablet [...] A TABLET BY MOUTH EVERY DAY 09/03/24 Moni Roberson MD tiZANidine (Zanaflex) 4 mg tablet [...] water (D50W), 25 g, q15 min PRN ondansetron ODT, 4 mg, q8h PRN Or ondansetron, 4 mg, q6h PRN sennosides-docusate sodium, 1 tablet, BID PRN REVIEW OF SYSTEMS See HPI, otherwise ROS negative as below CONSTITUTIONAL: negative HEENT: negative RESPIRATORY: negative CARDIOVASCULAR: negative GASTROINTESTINAL: as in HPI GENITOURINARY: negative OBJECTIVE DATA Vitals: BP 135/69 Pulse 82 Temp 36.6 ???C (97.9 ???F) Resp 16 Ht 1.676 m (5' 6 ) Wt 73.1 kg (161 lb 2.5 oz) SpO2 97% BMI 26.01 kg/m??? GEN: Alert and oriented x3, NAD HEENT: Atraumatic, normocephalic CV: Regular rate and rhythm PULM: Breathing comfortably ABD: Soft, non-tender, non-distended NEURO: Moves all 4 extremities spontaneously LABS AND IMAGING CBC: Results from last 7 days Lab Units 09/18/24 0720 09/17/24 1947 WBC AUTO 10*3/uL 6.54 7.10 RBC AUTO 10*6/uL 4.04 4.27 HEMOGLOBIN g/dL 12.3 12.9 HEMATOCRIT % 39.1 39.0 MCV fL 96.8 91.3 RDW % 13.2 13.1 PLATELETS AUTO 10*3/uL 284 301 PT/INR BMP: Results from last 7 days Lab Units 09/18/24 0720 09/17/24 1946 SODIUM mmol/L 138 136 POTASSIUM mmol/L 4.0 4.2 CHLORIDE mmol/L 102 102 BUN mg/dL 17 16 CREATININE mg/dL 0.72 0.68 EGFR mL/min/1.73m*2 82.9 86.4 GLUCOSE mg/dL 112* 128* LFTs: Results from last 7 days Lab Units 09/17/24 1946 BILIRUBIN TOTAL mg/dL 0.5 ALK PHOS U/L 43 AST U/L 15 ALT U/L 11 ALBUMIN g/dL 3.9 TOTAL PROTEIN g/dL 6.7 B12/Folate/Iron studies: No results found for: [id number] , FOLATE , IRON , TIBC , UIBC , IRONSAT , FERRITIN Viral Hepatitis No results found for: HEPAIGM , HAV , HEPBSAG , HEPBSAB , HEPBEAB , HEPBIGM , HEPBCAB , HEPBCOREAB , HBVNAT , HCVSCR , HEPCAB , HCVNAT , HCVPCR , HCVTMA Liver workup No results found for: AUTUMN , SMOOTHMUSCAB , CERULOPLSM , [id number] , TTGA , IGA , TSH , FREET4 , AFP Pancreatitis Lab Results Component Value Date LIPASE 27 09/17/2024 CALCIUM 9.0 09/18/2024 IMAGING: N/A ASSESSMENT AND PLAN Saeed Sarabia is a 83 y.o. female with a known past medical history significant for diabetes mellitus, hypertension, CAD s/p stent placement, HLD, A-fib on Eliquis, history of lumbar stenosis and lower back pain who was transferred from [facility] ER due to abdominal pain and the diagnosis of cholelithiasis with acute cholecystitis. History was taken from chart since the patient was a poor historian. The story of the patient goes back to 2 months ago when she has been complaining of abdominal pain, poor appetite and worsening her mental status. She was taken to [facility] ER for the evaluation of the abdominal pain. CT scan of the abdomen and pelvis there showed significant cholelithiasis with findings suggestive of acute cholecystitis. Therefore, the patient was transferred to our facility for further evaluation. Upon my assessment: Patient was afebrile and hemodynamically stable. CBC unremarkable. CMP showed normal lipase and LFTs. Abdominal exam was unremarkable. Assessment Cholelithiasis with possible acute cholecystitis on CT scan: CTAP showed findings suggestive of cholelithiasis with possible acute cholecystitis. LFTs are within normal limits. Lipase within normal limits. Abdominal exam unremarkable. General surgery on board. HIDA scan ordered. Plan Currently, no concerns for choledocholithiasis based on the labs and imaging report. No indication for ERCP or endoscopic evaluation for the time being. General surgery on board. Appreciate their recommendations. No further intervention from GI perspective. GI service will follow peripherally. Please call us back if you have any questions or concerns. This consult will be discussed with attending physician. If you have any questions please feel free to contact the GI Service. Thank you for allowing us to participate in the care of Saeed Sarabia. Gastroenterology 6 am to 4 pm weekdays in house: [phone] 4 pm to 6 am or weekends: Please contact the multifold operator to page the fellow investor relations analyst PROGRESS Observed: 09/18/2024 8:44 AM Status: COMPLETED Source: [facility] Medicine Daily Progress Note - 09/18/2024 8:44 AM; Room: [facility]4/4184- Admission: 09/17/2024 7:02 PM; Length of stay: 1 days THE HOSPITALIST TEAM PREFERS TO USE [employer] CHAT FOR NON-URGENT COMMUNICATION 7AM-7PM. IF I DO NOT RESPOND WITHIN 20 MINUTES OR URGENT MATTERS, PLEASE CALL THROUGH THE DIRECTOR OF CLOUD SERVICES. FROM 7PM-7AM, PLEASE PAGE [phone](COVR). Code Status: Full Code Barriers to Discharge: [...] Results from last 7 days Lab Units 09/17/241945 SODIUM mmol/L 136 POTASSIUM mmol/L 4.2 CHLORIDE [...] , FREET4 , CORTISOL , FEV1 , AGV8IRM , DLCO , RVSP , HDL , LDL No results found for: [id number] , IRON , TIBC , C3 , C4 , AUTUMN , CANCA , ASO , PSA , CEA , CA125 , CA199 , AFP , CA153 Imaging CT transfer of outside films This order has been auto-finalized and does not contain a result. Discharge Planning Expected Discharge Disposition: Home or Self Care (01) (pending PT/OT) OT Discharge Recommendations: retirement facility placement (vs return home with 24 hour supervision and Home OT) Signed Kayleigh Rivera MD [facility] 09/18/2024 8:44 AM PROGRESS Observed: 09/18/2024 8:39 AM Status: COMPLETED Source: [facility] Occupational Therapy Occupational Therapy Evaluation Patient Name: [...] this date and pt agreeable. Time In: 075 Time Out: 821 General Subjective: Pt pleasant, cooperative, confused, questionable historian Family/Caregiver Present: No Patient Active Problem List Diagnosis Coronary arteriosclerosis Atrial fibrillation (CMS/HCC) Diastolic heart failure ([facility]/HCC) Essential hypertension Hyperlipidemia Mitral valve regurgitation Type 2 diabetes mellitus without complication (CMS/HCC) Constipation Foot drop, right foot Right leg weakness Spinal stenosis Acute abdominal pain Acute metabolic encephalopathy Acute cholecystitis Cholelithiasis Past Medical History: Diagnosis Date Atrial fibrillation (CMS/HCC) CHF (congestive heart failure) ([facility]/HCC) Coronary artery disease Diabetes mellitus ([facility]/HCC) Heart valve disease Hyperlipidemia Hypertension Past Surgical [...] Level of Function Prior Function Level of [place]: Independent with ADLs and functional transfers, Independent [...] From 1: Bed Transfer Type 1: To Transfer to 1: Commode-standard Technique 1: Sit to stand, Stand to sit Transfer Device 1: rolling walker Transfer Level of Assistance 1: Contact guard Transfers 2 Transfer From 2: Commode-standard Transfer Type 2: To Transfer to 2: Chair with arms Technique 2: Sit to stand, Stand to sit Transfer Device 2: rolling walker Transfer Level of Assistance 2: Contact guard Objective General Assessments Activity Tolerance Endurance: Stage III Vision - Basic Assessment Current Vision: Wears glasses only for reading Sensation Light Touch: No apparent deficits Coordination Movements are Fluid and Coordinated: Yes Hand Function Gross Grasp: Functional Coordination: Functional Extremity Assessments RUE Assessment RUE Assessment: Exceptions to WFL RUE Strength RUE Overall Strength: (4/5) LUE Assessment LUE Assessment: Exceptions to WFL LUE Strength L Hand Biomedical Engineering Director Strength: 4/5 L Shoulder Flexion: 4-/5 L Elbow Flexion: 4/5 L Elbow Extension: 4/5 Outcome Assessments AM-PAC 6 Clicks Putting on and taking off regular lower body clothing?: A Lot (Mod/Max Assist) Bathing(Including washing,rinsing,drying)?: A Lot (Mod/Max Assist) Toileting, which includes using the toilet,bedpan,or urinal?: A Little (Min Assist/Contact Guard/Supervision) Putting on and taking off regular upper body clothing?: A Little (Min Assist/Contact Guard/Supervision) Taking care of personal grooming such as brushing teeth?: A Little (Min Assist/Contact Guard/Supervision) Eating meals?: None (Independent) Total Score OT [facility]: 17 Assessment/Plan OT Assessment OT Impairments: Decreased ADL status, Decreased upper extremity strength, Decreased safe judgment during ADL, Decreased cognition, Decreased endurance, Decreased functional mobility, Decreased IADLs, Decreased trunk control for functional activities OT Assessment/LUZMA Summary: Pt demo impaired activity tolerance, balance, and cognition inhibiting performance in bathing, dressing, toileting, transfers, and mobility Prognosis: Good Evaluation/Treatment Tolerance: Patient tolerated treatment well Medical Staff Made Aware: Yes OT Education/Comments: OT POC, safety awareness Plan Level of assist: 1 assist Treatment Interventions: ADL retraining, Functional transfer training, UE strengthening/ROM, Endurance training, Cognitive reorientation, Patient/family training, Equipment evaluation/education, Neuromuscular reeducation, Compensatory technique education OT Plan: Skilled OT OT Frequency: 1 time per day until discharge & PRN OT Discharge Recommendations: retirement facility placement (vs return home with 24 hour supervision and Home OT) OT - Discharge Recommendations Placed: Yes OT Goals Multi-Disciplinary Problems (from Occupational Therapy) Active Problems Problem: Balance Start Date: 09/18/24 Goal Start Date Expected End Date End Date LTG - Patient will demo mod I balance to allow for safe mobility 09/18/24 10/02/24 -- Goal Start Date Expected End Date End Date LTG - Patient will demo mod I standing and sitting balance to allow for completion of daily activities 09/18/24 10/02/24 -- Problem: Bathing Start Date: 09/18/24 Goal Start Date Expected End Date End Date LTG - Patient will utilize adaptive techniques to bathe body with stand-by/contact guard 09/18/24 10/02/24 -- Problem: Dressings Lower Extremities Start Date: 09/18/24 Goal Start Date Expected End Date End Date LTG - Patient will utilize adaptive techniques/equipment to dress lower body with modified independent 09/18/24 10/02/24 -- Problem: Dressing Upper Extremities Start Date: 09/18/24 Goal Start Date Expected End Date End Date STG - Patient will ambulate to closet to retrieve clothing with modified independent 09/18/24 10/02/24 -- Problem: Grooming Start Date: 09/18/24 Goal Start Date Expected End Date End Date STG - Patient will tolerate standing sink side to complete grooming with modified independent 09/18/24 10/02/24 -- Problem: Toileting Start Date: 09/18/24 Goal Start Date Expected End Date End Date LTG - Patient will utilize adaptive techniques/equipment to complete daily toileting tasks with modified independent 09/18/24 10/02/24 -- Problem: Transfers Start Date: 09/18/24 Goal Start Date Expected End Date End Date LTG - Patient will transfer from bed <> chair/toilet/shower with modified independent using walker 09/18/24 10/02/24 -- Goal Start Date Expected End Date End Date LTG - Patient will perform bed mobility with modified independent 09/18/24 10/02/24 -- Problem: OT Misc Start Date: 09/18/24 Goal Start Date Expected End Date End Date Pt will increase activity tolerance to engage in at least 20-30 minutes of dynamic seated/standing activity with no more than min rest breaks PRN. 09/18/24 10/02/24 -- Goal Start Date Expected End Date End Date Pt will demo I with attention, safety awareness, sequencing, and problem solving. 09/18/24 10/02/24 -- PROGRESS Observed: 09/18/2024 8:37 AM Status: COMPLETED Source: [facility] Physical Therapy Evaluation- -Cancellation Patient Name: Saeed Sarabia Today's Date: 09/18/2024 Admit Date: 09/17/2024 Patient admitted w/ abdominal pain. CT scan at OSH indicated possible cholelithiasis. Patient transferred for surgical consult. Patient is currently NPO. Director Of Campus Recreation anticipates patient to have change in mobility status if surgery is performed. Will await surgery consult and evaluate when appropriate. History of present illness Patient is a 83 y.o. female presents from [facility] w/ c/o abdominal pain and AMS x 4 days. [place] performed CT scan of abdomen that found acute vs chronic cholecystitis and cholelithiasis. Transferred to [facility] for sx. Recent UTI Past Medical History DM, HLD, HTN, gallstones, a-fib, HF, CAD, back sx, foot drop, inability to ambulate Current Diagnoses Acute cholecystitis/nephrolithiasis Aubrie Vogt PT, MPT [facility] Acute Rehabilitation POCT GLUCOSE METER UNSOLICIT ED RESULTS Collected: 09/18/2024 7:52 AM Status: UNK Source: [facility] Order Comment: Waived Testin g in the ED is performed under the ED CLIA certificate #[id number]. TYPE CODE TESTS RESULT OUT OF RANGE REFERENCE UNITS LAB 885 POCT GLUCOSE 125 High 70-105 mg/dL Result Comment: [email or web address] Performed By: #### [id number] #### [facility] ([facility]) [address] [place] [address] T4, FREE Collected: 09/18/2024 7:20 AM Status: UN K Source: [facility] TYPE CODE TESTS RESULT OUT OF RANGE REFERENCE UNITS LAB [id number] THYROXINE (T4) FREE (NG/DL) IN SER/PLAS 1.38 0.71-1.85 ng/dL Performed By: #### [id number] ## ## [facility] ([facility]) [address] [place] [address] TSH3 REFLEX TO FT4 Collected: 09/18/2024 7:20 AM Sta tus: UNK Source: [facility] TYPE CODE TESTS RESULT OUT OF RANGE REFERENCE UNITS LAB [id number] THYROTROPIN (MIU/L) IN SER/PLAS BY DETECTION LIMIT <= 0.05 MIU/L 0.04 Low 0.34-5.60 mIU/L Performed By: #### [id number] # ### [facility] ([facility]) [address] [place] [address] BASIC METABOLIC PANEL Collected: 2023 7:20 AM Status: UNK Source: [facility] TYPE CODE TESTS RESULT OUT OF RANGE REFERENCE UNITS LAB [id number] SODIUM (MMOL/L) IN SER/PLAS 138 136-145 mmol/L LAB [id number] POTASSIUM (MMOL/L) IN SER/PLAS 4.0 3.5-5.1 mmol/L LAB 9508968 CHLORIDE (MMOL/L) IN SER/PLAS 102 98-107 mmol/L LAB [id number] CARBON DIOXIDE, TOTAL (MMOL/L) IN SER/PLAS 27 21-31 mmol/L LAB 5617921 UREA NITROGEN (MG/DL) IN SER/PLAS 17 7-25 mg/dL LAB [id number] CREATININE (MG/DL) IN SER/PLAS 0.72 0.60-1.20 mg/dL LAB 8978901 GLUCOSE (MG/DL) IN SER/PLAS 112 High 70-100 mg/dL LAB 3881171 CALCIUM (MG/DL) IN SER/PLAS 9.0 8.6-10.3 mg/dL LAB 4684969 ANION GAP IN SER/PLAS 13 7-20 mmol/L LAB [id number] GLOMERULAR FILTRATION RATE ML/MIN/1.73 SQ M.PREDICTED 82.9 >60.0 mL/min/ 1.73m*2 Result Comment: [facility]???s estimated glomerular filtration rate (eGFR) will no [...] disproportionately affect any one group of individuals. LAB 0151746 UREA NITROGEN/CREA TININE (MASS RATIO) IN SER/PLAS 23.6 NA Performed By: #### [id number] ### # [facility] (BEAKER) [address] [place] [address] CBC Collected: 09/18/2024 7:20 AM Status: UN K Source: [facility] TYPE CODE TESTS RESULT OUT OF RANGE REFERENCE UNITS LAB [id number] LEUKOCYTES(10*3/ U L) IN BLOOD BY AUTOMATED COUNT 6.54 4.00-10.60 10*3/uL LAB 3719328 ERYTHROCYTES (10*6/UL) IN BLOOD BY AUTOMATED COUNT 4.04 3.80-5.00 10*6/uL LAB 1813183 HEMOGLOBIN (G/DL ) IN BLOOD 12.3 12.0-15.0 g/dL LAB 9205731 HEMATOCRIT (%) I N BLOOD BY AUTOMATED COUNT 39.1 36.0-48.0 % LAB 7032967 ERYTHROCYTE MEAN CORPUSCULAR VOLUME (FL) BY AUTOMATED COUNT 96.8 82.0-98.0 fL LAB [id number] ERYTHROCYTE MEAN CORPUSCULAR HEMOGLOBIN (PG) BY AUTOMATED COUNT 30.4 27.0-33.0 pg LAB 1710177 ERYTHROCYTE MEAN CORPUSCULAR HEMOGLOBIN CONCENTRATION (G/DL) BY AUTOMATED 31.5 Low 32.0-35.0 g/dL LAB 7522854 ERYTHROCYTE DISTRIBUTION WIDTH (RATIO) BY AUTOMATED COUNT 13.2 11.5-15.0 % LAB 5977808 PLATELETS (10*3/UL) IN BLOOD AUTOMATED COUNT 284 150-400 10*3/uL Performed By: #### [id number] ## ## [facility] ([facility]AK[facility]) [address] [place] [address] PROGRESS Observed: 09/18/2024 6:25 AM Status: COMPLETED Source: [facility] Attestation signed by Nitin Carroll MD at [...] changes as necessary to ensure accurate documentation. [facility] General Surgery DAILY PROGRESS NOTE [...] last 7 days Lab Units 09/18/24 0720 09/17/241946 WBC AUTO 10*3/uL 6.54 7.10 HEMOGLOBIN g/dL 12.3 12.9 HEMATOCRIT % 39.1 39.0 PLATELETS AUTO 10*3/uL 284 301 Results from last 7 days Lab Units 09/18/24 0720 09/17/241945 SODIUM mmol/L 138 136 POTASSIUM mmol/L 4.0 [...] Alem Tatum MD General Surgery Resident, PGY-1 30 Observed: 09/18/2024 2:16 AM Status: COMPLETED Source: [facility] The patient is Moderately St able - Low risk of patient condition declining or worsening The patient's goals for the shift include The clinical goals for the shift include Problem: Pain - Adult Goal: Verbalizes/displays adequate comfort level or baseline comfort level Outcome: Not ProgressingProblem: Safety - Adult Goal: Free from fall injury Outcome: Not ProgressingProblem: Discharge Planning Goal: Discharge to home or other facility with appropriate resources Outcome: Not ProgressingProblem: Chronic Conditions and Co-morbidities Goal: Patient's chronic conditions and co-morbidity symptoms are monitored and maintained or improved Outcome: Not Progressing POCT GLUCOSE METER UNSOLICIT ED RESULTS Collected: 09/17/2024 10:46 PM Status: UNK Source: [facility] Order Comment: Waived Testin g in the ED is performed under the ED CLIA certificate #[id number]. TYPE CODE TESTS RESULT OUT OF RANGE REFERENCE UNITS LAB 885 POCT GLUCOSE 129 High 70-105 mg/dL Result Comment: [email or web address] Performed By: #### [id number] #### [facility] ([facility]AKER) [address] [place] [address] HP Observed: 09/17/2024 10:18 PM Status: COMPLETED Source: [facility] Hospital Medicine History and Physical 09/17/2024 10:18 PM THE HOSPITALIST TEAM PREFERS TO USE [employer] FOR NON-URGENT COMMUNICATION 7AM-7PM. IF I DO NOT RESPOND WITHIN 20 MINUTES OR URGENT MATTERS, PLEASE CALL THROUGH THE DIRECTOR OF CLOUD SERVICES. FROM 7PM-7AM, PLEASE PAGE [phone]([phone]). Chief Complaint Chief Complaint Patient presents with Abdominal Pain Transferred from [facility]; will be getting surgery at [facility] Altered Mental Status History of Present Illness Saeed Sarabia is an 83 y.o. female who came from [facility] emergency room with Abdominal pain diagnosed with cholelithiasis and acute cholecystitis. Patient is also confused. Past medical history significant for; diabetes type 2, hypertension, CAD with stents, HLD, atrial fibrillation on Eliquis, history of lumbar stenosis and lower back pain, history of foot drop and inability to ambulate. Patient was transferred from ER at [facility] to [facility] for evaluation and treatment of abdominal pain. [...] of maximal intensity. Prior to transfer from [facility] CT scan of the head [...] right lower extremity with difficulty with ambulation). Psychiatric/Behavioral: Positive for confusion. Problem List Principal Problem: Acute cholecystitis Active Problems: Coronary arteriosclerosis Atrial fibrillation (CMS/HCC) Diastolic heart failure (CMS/HCC) Essential hypertension Hyperlipidemia Type 2 diabetes mellitus without complication (CMS/HCC) Foot drop, right foot Right leg weakness Acute abdominal pain Acute metabolic encephalopathy Cholelithiasis Hypomagnesemia Assessment and Plan PLAN OF CARE: 83-year-old lady with multiple medical problems is being admitted for abdominal pain caused by cholecystitis and cholelithiasis which in turn may be responsible for the acute confusional state. Patient is being admitted to the hospital commenced on IV antibiotics namely Rocephin and Flagyl and consults to general surgery and to gastroenterology. 1. Abdominal pain: -Abdominal pain secondary to cholelithiasis and possible acute cholecystitis. -Pain control with IV analgesics namely morphine sulfate -Commence patient on antibiotics for the management of cholecystitis -Consult with general surgery as well as gastroenterology -Will place patient n.p.o. after midnight. 2. Acute cholecystitis/nephrolithiasis: -Pain control -IV antibiotics -Surgery consult and GI consult -N.p.o. past midnight in case general surgery may want to proceed with cholecystectomy 3. Hypomagnesemia: -Replace magnesium with magnesium sulfate IV -Repeat mag level in the morning 4. Other comorbidities including diabetes type 2, hypertension, CAD, atrial fibrillation, HLD, (all is stable): -Will manage these conditions by reconciling home medications as appropriate -Will monitor patient's cardiac status -Will also utilize glucose monitoring and sliding scale for diabetes management while resuming home meds -Monitor all labs and correct any abnormalities -DVT prophylaxis patient is on Eliquis will resume -GI protection with Protonix -Monitor labs and correct any abnormalities -Consult with general surgery and gastroenterology -Approximate length of stay for this hospitalization may be 2 to 3 days -I discussed the plan of care with the patient's family daughter who is an RN and and everyone appears to be in agreement. VTE Prophylaxis: Eliquis ----- Focus of this inpatient stay will remain on problems that need acute care setting for care. We will review available studies and will order additional labs, imaging and other studies as appropriate. As needed medicines are ordered as appropriate. VTE Prophylaxis will be ordered as appropriate. Please see above for management plan for individual hospital problems. Home medications are reviewed and will be continued as appropriate. Patient will be continued to be followed during this hospital stay by a member of [facility]. Past Medical History Past Medical History: Diagnosis Date Atrial fibrillation ([facility]) CHF (congestive heart failure) ([facility]) Coronary artery disease Diabetes mellitus ([facility]) Heart valve disease Hyperlipidemia Hypertension Past Surgical History Past Surgical History: Procedure Laterality Date BACK SURGERY CARDIAC CATHETERIZATION CARDIOVERSION Social History Social History Socioeconomic History Marital status: Spouse name: Not on file Number of children: Not on file Years of education: Not on file Highest education level: Not on file Occupational History Not on file Tobacco Use Smoking status: Never Smokeless tobacco: Never Vaping Use Vaping status: Never Used Substance and Sexual Activity Alcohol use: Not Currently Drug use: Never Sexual activity: Defer Other Topics Concern Not on file Social History Narrative Not on file Social Determinants of Health Financial Resource Strain: Not on file Food Insecurity: Not on file Transportation Needs: Not on file Physical Activity: Not on file Stress: Not on file Social Connections: Not on file Intimate Partner Violence: Unknown (11/30/2023) MD Safety & Environment Fear of Current or Ex-Partner: Not on file Emotionally Abused: Not on file Physically Abused: Not on file Sexually Abused: Not on file Physically or Sexually Abused: Not on file Housing Stability: Not on file Family History family history includes Coronary artery disease in her father and mother; Heart attack in her father and mother; Multiple sclerosis in her sister. Allergies is allergic to morphine. Prior to Admission Medications (Not in a hospital admission) Labs Labs Reviewed COMPREHENSIVE METABOLIC PANEL - Abnormal Result Value Sodium 136 Potassium 4.2 Chloride 102 CO2 24 Anion Gap 14 BUN 16 Creatinine 0.68 BUN/Creatinine Ratio 23.5 Glucose 128 (*) Calcium 9.2 AST 15 ALT (SGPT) 11 Alkaline Phosphatase 43 Total Protein 6.7 Albumin 3.9 Total Bilirubin 0.5 eGFR 86.4 URINALYSIS WITH REFLEX CULTURE - Abnormal Color, Urine Colorless Clarity, Urine Clear pH, Urine 5.0 Leukocytes, Urine Negative Nitrite, Urine Negative Protein, Urine Negative Glucose, Urine Normal Bilirubin, Urine Negative Specific Walton, Urine 1.026 Ketones, Urine Trace (*) Blood, Urine Trace (*) Urobilinogen, Urine Normal URINALYSIS MICROSCOPIC WITH REFLEX CULTURE - Abnormal RBC, Urine 0-2 WBC, Urine 3-5 (*) Squamous Epithelial, Urine Few Mucus, Urine Occasional MAGNESIUM - Abnormal Magnesium 1.5 (*) VENOUS BLOOD GAS WITH IONIZED CALCIUM - Abnormal pH, Garret 7.44 (*) pCO2, Garret 26 (*) pO2, Garret 147 (*) HCO3, Venous 17.7 Calcium, Ion 1.04 (*) O2 Sat, Garret 99.8 (*) Base Excess, Garret -4.9 CALCIUM, IONIZED - Abnormal Calcium, Ion 1.02 (*) LIPASE - Normal Lipase 27 TROPONIN I - Normal Troponin I 0.01 CBC WITH AUTO DIFFERENTIAL - Normal Auto WBC 7.10 RBC 4.27 Hemoglobin 12.9 Hematocrit 39.0 MCV 91.3 MCH 30.2 MCHC 33.1 RDW 13.1 Neutrophils Relative 60.8 Lymphocytes Relative 28.6 Monocytes Relative 9.4 Eosinophils Relative 0.8 Basophils Relative 0.3 Neutrophils Absolute 4.31 Lymphocytes Absolute 2.03 Monocytes Absolute 0.67 Eosinophils Absolute 0.06 Basophils Absolute 0.02 Platelets 301 nRBC % 0.0 Immature Granulocytes Relative 0.1 Immature Granulocytes Absolute 0.01 PHOSPHORUS - Normal Phosphorus 3.3 CBC AND DIFFERENTIAL Narrative: The following orders were created for panel order CBC and differential. Procedure Abnormality Status --------- ------ CBC auto differential[[id number]] Normal Final result Please view results for these tests on the individual orders. Imaging CT transfer of outside films This order has been auto-finalized and does not contain a result. Signed Jose Kidd MD [facility] Medicine 09/17/2024 10:18 PM PROGRESS Observed: 09/17/2024 9:19 PM Status: COMPLETED Source: [facility] Relevant Hx: CT scan complet ed at [facility] on 09/17/24 indicated cholecystitis and cholelithiasis Today's Plan: Discussed with Dr. Lombardi, not clear that her abdominal pain is due to acute cholecystitis as lipase, bilirubin, WBC are all WNL and physical exam findings do not correlate well with cholecystitis. Will have CT imaging of abdomen transferred from [facility] and order HIDA scan to further evaluate, as well as obtain ionized calcium, magnesium, and phosphorus labs. Recommend medicine admit and NPO status while waiting for HIDA scan. No associated orders from this encounter found during lookback period of 72 hours. VENOUS BLOOD GAS WITH IONIZE D CALCIUM Collected: 09/17/2024 8:46 PM Status: UNK Source: [facility] TYPE CODE TESTS RESULT OUT OF RANGE REFERENCE UNITS LAB [id number] PH OF VENOUS BLOOD 7.44 High 7.31-7.41 NA LAB [id number] CARBON DIOXIDE (MM HG) IN VENOUS BLOOD 26 Low 40-50 mmHg LAB 1182868 OXYGEN (MM HG) IN VENOUS BLOOD 147 High 35-45 mmHg LAB 2830535 BICARBONATE IN VENOUS BLOOD 17.7 mmol/L LAB 3049002 CALCIUM IONIZED (MMOL/L) IN BLOOD 1.04 Low 1.15-1.33 mmol/L LAB 6144702 OXYGEN SATURATION (%) IN VENOUS BLOOD 99.8 High 65.0-75.0 % LAB 1626180 BASE EXCESS (MMOL/L) IN VENOUS BLOOD BY CALCULATION -4.9 mmol/L Performed By: #### [id number] # ### [facility] RESPIRATORY THERAPY [address] [place], [place] [address] CALCIUM, IONIZED Collected: 8:46 PM Status: UNK Source: [facility] TYPE CODE TESTS RESULT OUT OF RANGE REFERENCE UNITS LAB 0726731 CALCIUM IONIZED (MMOL/L) IN BLOOD 1.02 Low 1.15-1.33 mmol/L Performed By: #### [id number] ### # [facility] RESPIRATORY THERAPY [address] [place] [address] [facility] CONSULT Observed: 09/17/2024 8:20 PM Status: COMPLETED Source: [facility] Reason For Consult Abdominal pain Referring Provider: [facility] ER History Of Present Illness Saeed Sarabia is a 83 y.o. female presenting with Abdominal Pain; Altered Mental Status. Patient is not at baseline mental status per and daughter at bedside, states she has had AMS for at least 1 day with recent history of UTI for which she just completed antibiotics for. Patient was transferred from [facility], where she had CT scan of abdomen [...] was also given Rocephin and Flagyll at [facility] during her ER visit today, prior to transfer. Past Medical History She has a past medical history of Atrial fibrillation ([facility]), CHF (congestive heart failure) ([facility]), Coronary artery disease, Diabetes mellitus ([facility]), Heart valve disease, Hyperlipidemia, and Hypertension. Surgical [...] Musculoskeletal: Positive for back pain. Skin: Negative. Psychiatric/Behavioral: Positive for confusion. Last Recorded Vitals Patient [...] 09/17/2024 23.5 Final Glucose 09/17/2024 128 (H) 70 - 100 mg/dL Final Calcium 09/17/2024 9.2 8.6 - 10.3 mg/dL Final AST 09/17/2024 15 13 - 39 U/L Final ALT (SGPT) 09/17/2024 11 7 - 52 U/L Final Alkaline Phosphatase 09/17/2024 43 34 - 104 U/L Final Total Protein 09/17/2024 6.7 6.0 - 8.3 g/dL Final Albumin 09/17/2024 3.9 3.5 - 5.7 g/dL Final Total Bilirubin 09/17/2024 0.5 0.3 - 1.0 mg/dL Final eGFR 09/17/2024 86.4 >60.0 mL/min/1.73m*2 Final [facility]???s estimated glomerular filtration rate (eGFR) [...] disproportionately affect any one group of individuals. Lipase 09/17/2024 27 11 - 82 U/L Final Auto WBC 09/17/2024 7.10 4.00 - 10.60 10*3/uL Final RBC 09/17/2024 4.27 3.80 - 5.00 10*6/uL Final Hemoglobin 09/17/2024 12.9 12.0 - 15.0 g/dL Final Hematocrit 09/17/2024 39.0 36.0 - 48.0 % Final MCV 09/17/2024 91.3 82.0 - 98.0 fL Final MCH 09/17/2024 30.2 27.0 - 33.0 pg Final MCHC 09/17/2024 33.1 32.0 - 35.0 g/dL Final RDW 09/17/2024 13.1 11.5 - 15.0 % Final Neutrophils Relative 09/17/2024 60.8 40.0 - 72.0 % Final Lymphocytes Relative 09/17/2024 28.6 20.0 - 45.0 % Final Monocytes Relative 09/17/2024 9.4 5.0 - 12.0 % Final Eosinophils Relative 09/17/2024 0.8 0.0 - 6.0 % Final Basophils Relative 09/17/2024 0.3 0.0 - 1.0 % Final Neutrophils Absolute 09/17/2024 4.31 1.60 - 7.60 10*3/uL Final Lymphocytes Absolute 09/17/2024 2.03 1.20 - 4.00 10*3/uL Final Monocytes Absolute 09/17/2024 0.67 0.10 - 1.00 10*3/uL Final Eosinophils Absolute 09/17/2024 0.06 0.00 - 0.50 10*3/uL Final Basophils Absolute 09/17/2024 0.02 0.00 - 0.20 10*3/uL Final Platelets 09/17/2024 301 150 - 400 10*3/uL Final nRBC % 09/17/2024 0.0 0 % Final Immature Granulocytes Relative 09/17/2024 0.1 0.0 - 1.0 % Final Immature Granulocytes Absolute 09/17/2024 0.01 0.00 - 0.20 10*3/uL Final Color, Urine 09/17/2024 Colorless Colorless, Yellow, Light-Yellow Final Clarity, Urine 09/17/2024 Clear Clear Final pH, Urine 09/17/2024 5.0 5.0 - 8.0 pH Final Leukocytes, Urine 09/17/2024 Negative Negative Final Nitrite, Urine 09/17/2024 Negative Negative Final Protein, Urine 09/17/2024 Negative Negative mg/dL Final Glucose, Urine 09/17/2024 Normal Normal mg/dL Final Bilirubin, Urine 09/17/2024 Negative Negative Final Specific Walton, Urine 09/17/2024 1.026 1.010 - 1.030 Final Ketones, Urine 09/17/2024 Trace (A) Negative mg/dL Final Blood, Urine 09/17/2024 Trace (A) Negative Final Urobilinogen, Urine 09/17/2024 Normal Normal mg/dL Final RBC, Urine 09/17/2024 0-2 None Seen, 0-2 /HPF Final WBC, Urine 09/17/2024 3-5 (A) None Seen, 0-2 /HPF Final Squamous Epithelial, Urine 09/17/2024 Few None Seen, Occasional, Few /LPF Final Mucus, Urine 09/17/2024 Occasional None Seen, Occasional, Few /LPF Final Assessment/Plan Assessment & Plan Acute abdominal pain Relevant Hx: CT scan completed at [facility] on 09/17/24 indicated cholecystitis and cholelithiasis Today's Plan: Discussed with Dr. Lombardi, not clear that her abdominal pain is due to acute cholecystitis as lipase, bilirubin, WBC are all WNL and physical exam findings do not correlate well with cholecystitis. Will have CT imaging of abdomen transferred from [facility] and order HIDA scan to further evaluate, as well as obtain ionized calcium, magnesium, and phosphorus labs. Recommend medicine admit and NPO status while waiting for HIDA scan. No associated orders from this encounter found during lookback period of 72 hours. NM HIDA WO EJECTION FRACTION Observed: 09/17/2024 8:15 PM Status: UNK Source: [facility]UCS GI HIDA CLINICAL HISTORY: 83-year-old with [...] of acute cholecystitis. Electronically signed: Felicita Leal. CBC WITH AUTO DIFFERENTIAL Collected: 09/17/2024 7:47 PM Status: UNK Source: [facility] TYPE CODE TESTS RESULT OUT OF RANGE REFERENCE UNITS LAB [id number] LEUKOCYTES(10*3/ UL) IN BLOOD BY AUTOMATED COUNT 7.10 4.00-10.60 10*3/uL LAB [id number] ERYTHROCYTES (10*6/UL) IN BLOOD BY AUTOMATED COUNT 4.27 3.80-5.00 10*6/uL LAB 1268383 HEMOGLOBIN (G/DL) IN BLOOD 12.9 12.0-15.0 g/dL LAB 2954000 HEMATOCRIT (%) IN BLOOD BY AUTOMATED COUNT 39.0 36.0-48.0 % LAB [id number] ERYTHROCYTE MEAN CORPUSCULAR VOLUME (FL) BY AUTOMATED COUNT 91.3 82.0-98.0 fL LAB 4756479 ERYTHROCYTE MEAN CORPUSCULAR HEMOGLOBIN (PG) BY AUTOMATED COUNT 30.2 27.0-33.0 pg LAB [id number] ERYTHROCYTE MEAN CORPUSCULAR HEMOGLOBIN CONCENTRATION (G/DL) BY AUTOMATED 33.1 32.0-35.0 g/dL LAB 1725782 ERYTHROCYTE DISTRIBUTION WIDTH (RATIO) BY AUTOMATED COUNT 13.1 11.5-15.0 % LAB [id number] NEUTROPHILS/100 LEUKOCYTES IN BLOOD BY AUTOMATED COUNT 60.8 40.0-72.0 % LAB 9177495 LYMPHOCYTES/100 LEUKOCYTES IN BLOOD BY AUTOMATED COUNT 28.6 20.0-45.0 % LAB [id number] MONOCYTES/100 LEUKOCYTES IN BLOOD BY AUTOMATED COUNT 9.4 5.0-12.0 % LAB 1566993 EOSINOPHILS/100 LEUKOCYTES IN BLOOD BY AUTOMATED COUNT 0.8 0.0-6.0 % LAB 5131307 BASOPHILS/100 LEUKOCYTES IN BLOOD BY AUTOMATED COUNT 0.3 0.0-1.0 % LAB 0315008 NEUTROPHILS (10*3/UL) IN BLOOD BY AUTOMATED COUNT 4.31 1.60-7.60 10*3/uL LAB 9975938 LYMPHOCYTES (10*3/UL) IN BLOOD BY AUTOMATED COUNT 2.03 1.20-4.00 10*3/uL LAB 1242096 MONOCYTES (10*3/UL) IN BLOOD BY AUTOMATED COUNT 0.67 0.10-1.00 10*3/uL LAB 4169227 EOSINOPHILS (10*3/UL) IN BLOOD BY AUTOMATED COUNT 0.06 0.00-0.50 10*3/uL LAB [id number] BASOPHILS (10*3/UL) IN BLOOD BY AUTOMATED COUNT 0.02 0.00-0.20 10*3/uL LAB 4062152 PLATELETS (10*3/UL) IN BLOOD AUTOMATED COUNT 301 150-400 10*3/uL LAB 254 NRBC (PER 100 WBCS) BY AUTOMATED COUNT 0.0 0 % LAB 1767 IMMATURE GRANULOCYTES/100 LEUKOCYTES IN BLOOD BY AUTOMATED COUNT 0.1 0.0-1.0 % LAB 1768 IMMATURE GRANULOCYTES (10*3/UL) IN BLOOD BY AUTOMATED COUNT 0.01 0.00-0.20 10*3/uL Performed By: #### [id number] # ### [facility] (BEAKER) [address] [place] [address] TROPONIN I Collected: 09/17/2024 7:46 PM Status: UN K Source: [facility] TYPE CODE TESTS RESULT OUT OF RANGE REFERENCE UNITS LAB [id number] TROPONIN I.CARDIAC (NG/ML) IN SERUM OR PLASMA 0.01 0.00-0.04 ng/mL Performed By: #### [id number] ## ## [facility] (BEAKER) [address] [place] [address] COMPREHENSIVE METABOLIC PANEL Collected: 09/17/2024 7 :46 PM Status: UNK Source: [facility] TYPE CODE TESTS RESULT OUT OF RANGE REFERENCE UNITS LAB 0419316 SODIUM (MMOL/L) IN SER/PLAS 136 136-145 mmol/L LAB 5827510 POTASSIUM (MMOL/ L) IN SER/PLAS 4.2 3.5-5.1 mmol/L LAB 3817044 CHLORIDE (MMOL/L ) IN SER/PLAS 102 98-107 mmol/L LAB 3084864 CARBON DIOXIDE, TOTAL (MMOL/L) IN SER/PLAS 24 21-31 mmol/L LAB 9162368 ANION GAP IN SER/PLAS 14 7-20 mmol/L LAB 6167511 UREA NITROGEN (MG/DL) IN SER/PLAS 16 7-25 mg/dL LAB 3953024 CREATININE (MG/D L) IN SER/PLAS 0.68 0.60-1.20 mg/dL LAB 5725476 UREA NITROGEN/CREATININ E (MASS RATIO) IN SER/PLAS 23.5 NA LAB 1948619 GLUCOSE (MG/DL) IN SER/PLAS 128 High 70-100 mg/dL LAB 9977769 CALCIUM (MG/DL) IN SER/PLAS 9.2 8.6-10.3 mg/dL LAB 0236285 ASPARTATE AMINOTRANSFERASE (SGOT) (U/L) IN SER/PLAS 15 13-39 U/L LAB 5221528 ALANINE AMINOTRANSFERASE (SGPT) (U/L) IN SER/PLAS 11 7-52 U/L LAB 2238789 ALKALINE PHOSPHATASE (U/L) IN SER/PLAS 43 34-104 U/L LAB 4870986 PROTEIN (G/DL) I N SER/PLAS 6.7 6.0-8.3 g/dL LAB 4641062 ALBUMIN (G/DL) I N SER/PLAS 3.9 3.5-5.7 g/dL LAB 6520171 BILIRUBIN TOTAL (MG/DL) IN SER/PLAS 0.5 0.3-1.0 mg/dL LAB 3532422 GLOMERULAR FILTRATION RATE ML/MIN/1.73 SQ M.PREDICTED 86.4 >60.0 mL/min /1.73m *2 Result Comment: [facility]???s estimated glomerular filtration rate (eGFR) will [...] one group of individuals. Performed By: #### [id number] ### # [facility] ([facility]) [address] [place] [address] PHOSPHORUS Collected: 09/17/2024 7:46 PM Status: UN K Source: [facility] TYPE CODE TESTS RESULT OUT OF RANGE REFERENCE UNITS LAB [id number] PHOSPHATE (MG/DL) IN SER/PLAS 3.3 2.5-5.0 mg/dL Performed By: #### [id number] ## ## [facility] [address] [address] MAGNESIUM Collected: 09/17/2024 7:46 PM Status: UN K Source: [facility] TYPE CODE TESTS RESULT OUT OF RANGE REFERENCE UNITS LAB [id number] MAGNESIUM (MG/DL) IN SER/PLAS 1.5 Low 1.9-2.7 mg/dL Performed By: #### [id number] ## ## [facility] [address] [place] [address] LIPASE Collected: 09/17/2024 7:46 PM Status: UN K Source: [facility] TYPE CODE TESTS RESULT OUT OF RANGE REFERENCE UNITS LAB [id number] LIPASE (U/L) IN SER/PLAS 27 11-82 U/L Performed By: #### LAB99 ### # [facility] [address] [place] [address] URINALYSIS WITH REFLEX CULTURE Collected: 09/17/2024 7:44 PM Status: UNK [facility]: [facility] TYPE CODE TESTS RESULT OUT OF RANGE REFERENCE UNITS LAB [id number] COLOR OF URINE Colorless Color less, Yellow, Light-Yellow LAB 8777542 CLARITY OF URINE Clear Clear LAB 5572791 PH OF URINE 5.0 5.0-8.0 pH LAB 4269464 LEUKOCYTE ESTERASE PRESENCE IN URINE BY TEST STRIP Negative Negative LAB 6333543 NITRITE PRESENCE IN URINE Negative Negative LAB 2070060 PROTEIN (MG/DL) IN URINE BY TEST STRIP Negative Negative mg/dL LAB 0132035 GLUCOSE (MG/DL) IN URINE Normal Normal mg/dL LAB 7828288 BILIRUBIN, TOTAL PRESENCE IN URINE Negative Negative LAB 9 SPECIFIC GRAVITY OF URINE 1.026 1.010-1.030 NA LAB 548 KETONES (MG/DL) IN URINE Trace Abnormal Negative mg/dL LAB 549 HEMOGLOBIN PRESENCE IN URINE Trace Abnormal Negative LAB 1192421 UROBILINOGEN (MG/DL) IN URINE Normal Normal mg/dL Performed By: #### [id number] # ### [facility] (BEAKER) [address] [place] [address] URINALYSIS MICROSCOPIC WITH REFLEX CULTURE Collected: 09/17/2024 7:44 PM Status: UNK Source: [facility] TYPE CODE TESTS RESULT OUT OF RANGE REFERENCE UNITS LAB [id number] RBC (#/HPF) IN URINE SEDIMENT 0-2 None Seen, 0-2 /HPF LAB 7129634 WBC (LEUKOCYTE) (#/HPF) IN URINE SEDIMENT 3-5 Abnormal None Seen, 0-2 /HPF LAB 6058961 SQUAMOUS EPITHELIAL CELLS (#/LPF) IN URINE SEDIMENT Few None Seen, Occasional, Few /LPF LAB 194 MUCUS (#/LPF) IN URINE SEDIMENT Occasional None Seen, Occasional, Few /LPF Performed By: #### PBE7463 # ### [facility] (BEAKER) [address] [place] [address] EDPROV Observed: 09/17/2024 7:36 PM Status: COMPLETED Source: [facility] History of Present Illness Chief Complaint Patient presents with Abdominal Pain Transferred from [facility]; will be getting surgery at [facility] Altered Mental Status Initial evaluation completed by Dr. Vasquez at 7:20 PM. Saeed Sarabia is a 83 y.o. female presenting to the ED with c/o Abdominal Pain, Altered Mental Status. Patient reports via EMS and is a transfer from [facility]. Patient reports that she has gallstones and [...] currently on Eliquis. History provided by: Patient tongue lining stitcher used: No Altered Mental Status Associated symptoms: [...] signing this emergency patient record, the Emergency Physician/NURSE RECEPTIONIST/PA-C attests that all entries made into the electronic medical record by the scribe prior to the Physician/NURSE RECEPTIONIST/PA-C signature reflect an accurate accounting of the evaluation and care rendered by that Emergency Physician/NURSE RECEPTIONIST/PA-C. The Emergency Physician/NURSE RECEPTIONIST/PA-C assumes full responsibility for those entries. The Emergency Physician/NURSE RECEPTIONIST/PA-C also attests that any patient testing or treatment that was instituted by nursing staff. Sanjeev Vasquez MD 09/17/242129 EDNURS Observed: 09/17/2024 7:29 PM Status: COMPLETED Source: [facility] Mode of arrival (squad #, wa lk in, police, etc): [facility] Chief complaint(s): abdominal pain, altered mental status Arrival Note (brief scenario, treatment SAMPLE CUTTER, etc): Pt arrives via [facility] stretcher from [facility] with c/o of abdominal pain and altered mental status x4 days. Per facility report, [facility] did not have a surgery bed available, so pt will be getting surgery at [facility]. Pt was diagnosed with cholelithiasis and finished [...] for pain. Pt denies SOB and CP. ALLERGIES DATE TYPE / CODE NAME / CODE REACTION SEVERITY SOURCE 09/17/2024 DRUG INGREDI/770293 003(SNOMED CT) MORPHINE GI UPSET Low [facility] 09/17/2024 DRUG INGREDI/887081 003(SNOMED CT) MORPHINE [facility] Drug Class/00475294 3(SNOMED CT) NO KNOWN ALLERGIES [facility] ENCOUNTERS ADMIT/DISCHARGE ACCOUNT NUMBER ADMITTING ENCOUNTER CLASS LOCATION SOURCE 07/07/2025/07/07/20 [id number] [place]ulatory [place] Exam 2 [facility] 06/30/2025 [id number] [place] [facility] 05/22/2025/05/22/20 [id number] Ambulatory Building:[facility] 02/18/2025/02/19/20 25 [id number] Ambulatory Building:[facility] 01/17/2025/01/18/20 [id number] [facility] 12/17/2024/12/18/19 25 [id number] [facility]FWOG [facility] 12/06/2024/12/06/19 [id number] LUCIANA GREEN [facility]FVOR[facility]oo m: POOLBed: 03 [facility] 12/03/2024/12/03/19 25 [id number] Ambulatory Building:[facility] 11/15/2024/11/15/19 25 [id number] Ambulatory [facility] HospitalBuil ding:HOLLY [facility] 11/15/2024/11/15/19 25 [id number] [facility]ulatory [facility]DOMINICK [facility] 11/13/2024/11/13/19 [id number] WALTER DAVIS Ambulatory BuildinC [facility] 11/07/2024/11/07/19 [id number] Ambulatory Building:CCB [facility] 11/04/2024/11/04/19 [id number] Ambulatory [facility] HospitalBuil ding:FWOG [facility] 10/30/2024/10/30/19 25 [id number] Ambulatory Building:[facility] EPIC 10/29/2024/10/29/19 25 [id number] Ambulatory [facility] HospitalBuil ding:NBHMDH [facility] 10/29/2024/10/29/19 25 [id number] Ambulatory [facility] HospitalBuil ding:STOB [facility] 10/24/2024/10/24/19 [id number] Ambulatory [facility] HospitalBuil ding:FWOG [facility] 10/21/2024/10/21/19 25 [id number] [facility] 10/16/2024/10/21/19 25 [id number] GLENROY MARTIN [facility] din[facility]URoo m: 0531Bed: [facility] 10/16/2024/10/16/19 25 [id number] Emergency [facility] HospitalBuil ding:VEDRoom : POOLBed: [facility] 10/16/2024/10/16/19 25 [id number] Ambulatory [facility] HospitalBuil ding:NOEX [facility] 10/10/2024/10/10/19 25 [id number] Ambulatory Building:[facility] 09/30/2024/09/30/20 24 [id number] Ambulatory Building:[facility] 09/20/2024 [id number] Inpatient Encounter Buildin [id number] [facility] 09/20/2024 [id number] Inpatient Encounter Building:OR [facility] 09/19/2024 [id number] Inpatient Encounter Buildin [id number] [facility] 09/18/2024 [id number] Ambulatory Buildin [id number] [facility] 09/17/2024 [id number] Emergency Buildin [id number] [facility] 09/17/2024/09/21/20 24 [id number] ONUR KIDDJIMENA Inpatient Encounter BuildinCD [facility] [address] [place] [address] 08/20/2024/08/20/20 24 [id number] Ambulatory Building:[facility] EPIC PAYERS ENCOUNTER GUARANTOR PAYER SUBSCRIBER SOURCE 07/07/2025 SAEED AGUILARSDOB: [id number] [address]Tel: ~(6 [phone] (HP) Primary Insurance:MEDICAREPolic y Number: [id number] Date:3053-30-06[address] [place] [address]FJ: SAEED Nash [facility]/07/2025 Secondary Insurance:AARPPolicy Number: [id number] Date:6798-68-48WZ [address] [address]BW: CECILIA Ruggiero [facility] 05/22/2025 SAEED CANTUREYSDOB: [id number] [address] [address]Kmz: (HP) Primary Insurance:MEDICAREPolic y Number: [id number] Date:3543-18-46Fkkf Name:Medicare SAEED CANTUREYSDOB: [id number] [address] [address] [facility] EPIC 05/22/2025 Secondary Insurance:AARPPolicy Number: [id number] Date:2022-10-09 SAEED CANTUREYSDOB: [id number] [address] [address] [facility] EPIC 02/18/2025 SAEED CANTUREYSDOB: [id number] [address] [address]Eno: () Primary Insurance:MEDICAREPolic y Number: [id number] Date:8938-87-52Swcp Name:Medicare BARBARA S HUMPHREYSDOB: [id number] [address] [address] [facility] 02/18/2025 Secondary Insurance:AARPPolicy Number: [id number] Date:2022-10-09 SAEED AGUILARSDOB: [id number] [address] [address] [facility] 01/17/2025 Primary Insurance:MEDICARE A AND BPolicy Number: [id number] Date:0706-22-95Xcrl Name:Kamari KARIMIOB: [id number] [address] [address] [facility] 01/17/2025 Secondary Insura nce:[facility] AARP SUPPLEMENTPolicy Number: [id number] Date:3346-91-20Gjeq Name:Betty AGUILARSDOB: [id number] [address] [address] [facility] 12/17/2024 Primary Insurance:MEDICARE A AND BPolicy Number: [id number] Date:1024-59-00Tztl Name:Kamari AGUILARSDOB: [id number] [address]NOTE [facility] [place] [address] [facility] 12/17/2024 Secondary Insura nce:[facility] AARP SUPPLEMENTPolicy Number: [id number] Date:6834-11-05Evvg Name:Betty AGUILARSDOB: [id number] [address] [address] [facility] 12/06/2024 Primary Insurance:MEDICARE A AND BPolicy Number: [id number] Date:5957-99-50Xnyz Name:Kamari AGUILARSDOB: [id number] [address] [address] [facility] 12/06/2024 Secondary Insura nce:[facility] AARP SUPPLEMENTPolicy Number: [id number] Date:8202-25-88Prut Name:Betty KARIMIOB: [id number] [address] [place] [address] [facility] 12/03/2024 SAEED KARIMIOB: [id number] [address] [address]Krt: () Primary Insurance:MEDICAREPolic y Number: [id number] Date:5477-74-73Ijxz Name:Medicare BARBARA S HUMPHREYSDOB: [id number] [address] [address] [facility] 12/03/2024 Secondary Insurance:AARPPolicy Number: [id number] Date:2022-10-09 SAEED KARIMIOB: [id number] [address] [address] [facility] 11/15/2024 Primary Insurance:MEDICARE A AND BPolicy Number: [id number] Date:6753-45-08Emwe Name:Kamari KARIMIOB: [id number] [address] [address] [facility] 11/15/2024 Secondary Insura nce:[facility] AARP SUPPLEMENTPolicy Number: [id number] Date:6155-86-72Urtc Name:Betty KARIMIOB: [id number] [address] [address] [facility] 11/15/2024 Primary Insurance:MEDICARE A AND BPolicy Number: [id number] Date:1707-40-42Yvgd Name:Kamari KARIMIOB: [id number] [address] [address] [facility] 11/15/2024 Secondary Insura nce:[facility] AARP SUPPLEMENTPolicy Number: [id number] Date:1753-93-92Rvwi Name:Betty AGUILARSDOB: [id number] [address] [place] [address] [facility] 11/13/2024 Primary Insurance:MEDICAREPolic y Number: [id number] Date:8099-20-13Kaqn Name:Medicare BARBARA S HUMPHREYSDOB: [id number] [address] [address] 11/13/2024 Secondary Insurance:AARPPolicy Number: [id number] Date:2022-10-09 SAEED CANTUREYSDOB: [id number] [address] [place] [address] 11/07/2024 Primary Insurance:MEDICAREPolic y Number: [id number] Date:5404-10-09Focb Name:Medicare SAEED AGUILARSDOB: [id number] [address] [place] [address] 11/07/2024 Secondary Insurance:AARPPolicy Number: [id number] Date:2022-10-09 SAEED AGUILARSDOB: [id number] [address] [address] 11/04/2024 Primary Insurance:MEDICARE A AND BPolicy Number: [id number] Date:7480-01-93Xmwb Name:Kamari AGUILARSDOB: [id number] [address] [place] [address] [facility] 11/04/2024 Secondary Insura nce:[facility] AAR SUPPLEMENTPolicy Number: [id number] Date:8960-08-82Etmo Name:Betty CANTUREYSDOB: [id number] [address] [place] [address] [facility] 10/30/2024 SAEED CANTUREYSDOB: [id number] [address] [address]Hbk: () Primary Insurance:MEDICAREPolic y Number: [id number] Date:2517-78-25Wlpy Name:Medicare BARBARA S HUMPHREYSDOB: [id number] [address] [address] [facility] 10/30/2024 Secondary Insurance:AARPPolicy Number: [id number] Date:2022-10-09 SEAED AGUILARSDOB: [id number] [address] [address] [facility] 10/29/2024 Primary Insurance:MEDICARE A AND BPolicy Number: [id number] Date:9325-91-80Enct Name:Kamari KARIMIOB: [id number] [address] [address] [facility] 10/29/2024 Secondary Insura nce:[facility] AARP SUPPLEMENTPolicy Number: [id number] Date:6198-64-04Ebiq Name:Betty AGUILARSDOB: [id number] [address] [address] [facility] 10/29/2024 Primary Insurance:MEDICARE A AND BPolicy Number: [id number] Date:2144-19-48Dgfm Name:Kamari AGUILARSDOB: [id number] [address] [facility] 10/29/2024 Secondary Insura nce:[facility] AARP SUPPLEMENTPolicy Number: [id number] Date:2173-69-16Atbu Name:Betty AGUILARSDOB: [id number] [address] [address] [facility] 10/24/2024 Primary Insurance:MEDICARE A AND BPolicy Number: [id number] Date:5922-35-84Cshd Name:Kamari AGUILARSDOB: [id number], [place] [address] [facility] 10/24/2024 Secondary Insura nce:[facility] AARP SUPPLEMENTPolicy Number: [id number] Date:7078-36-28Tgxt Name:Betty AUGILARSDOB: [id number], [place] [address] [facility] 10/21/2024 Primary Insurance:MEDICARE A AND BPolicy Number: [id number] Date:4790-49-40Xebc Name:Kamari AGUILARSDOB: [id number] [address] [facility] 10/21/2024 Secondary Insura nce:[facility] AARP SUPPLEMENTPolicy Number: [id number] Date:3153-49-72Omvn Name:Betty AGUILARSDOB: [id number], [place] [address] [facility] 10/16/2024 Primary Insurance:MEDICARE A AND BPolicy Number: [id number] Date:4645-12-41Athk Name:Kamari AGUILARSDOB: [id number], [place] [address] [facility] 10/16/2024 Secondary Insura nce:[facility] AARP SUPPLEMENTPolicy Number: [id number] Date:1148-00-15Cfnn Name:Betty AGUILARSDOB: [id number] [address], [place] [address] [facility] 10/16/2024 Primary Insurance:MEDICARE A AND BPolicy Number: [id number] Date:6499-13-29Oaud Name:Kamari AGUILARSDOB: [id number], [place] [address] [facility] 10/16/2024 Primary Insurance:MEDICARE A AND BPolicy Number: [id number] Date:5949-19-38Cvdb Name:Kamari AGUILARSDOB: [id number] [address] [address] [facility] 10/10/2024 SAEED AGUILARSDOB: 3239-25-320756 [address] [address]Ckd: (HP) Primary Insurance:MEDICAREPolic y Number: [id number] Date:7052-30-75Dhry Name:Medicare SAEED AGUILARSDOB: [id number] [address] [address] [facility] EPIC 10/10/2024 Secondary Insurance:AARPPolicy Number: [id number] Date:2022-10-09 SAEED AGUILARSDOB: [id number] [address] [address] [facility] EPIC 09/30/2024 SAEED AGUILARSDOB: [id number] [address] [address]Kxt: (HP) Primary Insurance:MEDICAREPolic y Number: [id number] Date:1905-49-47Psbw Name:Medicare SAEED AGUILARSDOB: [id number] [address] [address] [facility] EPIC 09/30/2024 Secondary Insurance:AARPPolicy Number: [id number] Date:2022-10-09 SAEED AGUILARSDOB: [id number] [address] [address] [facility] EPIC 09/20/2024 Primary Insurance:MEDICAREPolic y Number: [id number] Date:4141-33-79Lfhg Name:Medicare SAEED AGUILARSDOB: [id number] [address] [address] [facility] 09/20/2024 Secondary Insurance:AARPPolicy Number: [id number] Date:2022-10-09 SAEED AGUILARSDOB: [id number] [address] [address] [facility] 09/20/2024 Primary Insurance:MEDICAREPolic y Number: [id number] Date:2992-29-53Shbr Name:Medicare BARBARA S HUMPHREYSDOB: [id number] [address] [address] [facility] 09/20/2024 Secondary Insurance:AARPPolicy Number: [id number] Date:2022-10-09 SAEED AGUILARSDOB: [id number] [address] [place] [address] [facility] 09/19/2024 Primary Insurance:MEDICAREPolic y Number: [id number] Date:2040-08-90Xlbi Name:Medicare BARBARA S HUMPHREYSDOB: [id number] [address] [place] [address] 09/19/2024 Secondary Insurance:AARPPolicy Number: [id number] Date:2022-10-09 SAEED AGUILARSDOB: [id number] [address] [place] [address] [facility] 09/18/2024 Primary Insurance:MEDICAREPolic y Number: [id number] Date:6034-77-99Hfvb Name:Medicare BARBARA S HUMPHREYSDOB: [id number] [address] [place] [address] [facility] 09/18/2024 Secondary Insurance:AARPPolicy Number: [id number] Date:2022-10-09 SAEED AGUILARSDOB: [id number] [address] [place] [address] [facility] 09/17/2024 Primary Insurance:MEDICAREPolic y Number: [id number] Date:3182-39-85Xryo Name:Medicare BARBARA S HUMPHREYSDOB: [id number] [address] [address] [facility] 09/17/2024 Secondary Insurance:AARPPolicy Number: [id number] Date:2022-10-09 SAEED KARIMIOB: [id number] [address] [address] [facility] 09/17/2024 Primary Insurance:MEDICAREPolic y Number: [id number] Date:1937-90-16Mkrj Name:Medicare SAEED KARIMIOB: [id number] [address] [place] [address] 09/17/2024 Secondary Insurance:AARPPolicy Number: [id number] Date:2022-10-09 SAEED AGUILARSDOB: [id number] [address] [address] [place] [address] 08/20/2024 SAEED AGUILARSDOB: 5059-76-382593 [place], [place] [address]Tel: (HP) Primary Insurance:MEDICAREPolic y Number: [id number] Date:6529-63-95Kkic Name:Medicare SAEED KARIMIOB: [id number] [id number] [place] [address] [facility] 08/20/2024 Secondary Insurance:AARPPolicy Number: [id number] Date:2022-10-09 SAEED AGUILARSDOB: [id number] [id number] [place] [address] [facility] EPIC
--- OUTSIDE RECORDS SUMMARY | 2025-07-10 08:35 | XMS_ITS | Encounter Summary ---
Author Organization [facility] Address [address] [place] [address] Care Team Providers Care Digital Sales Representative Name Role Phone Kirstin Miller NUCLEAR WASTE PROCESS OPERATOR Unavailable Mike Steiner MD Primary Care Provider [phone] Encounter Details Date Type Department Care Team (Late st Contact Info) Description 10/15/2024 Orders Only [facility] [address] [place] [address] Social History Tobacco Use Types Packs/Day Years [...] on file documented as of this encounter Procedures Procedure Name Priority Date/Time Associated Diagnosis Comments CT ABDOMEN/PELVIS WITH CONTRAST Routine 10/15/2024 1:02 PM EST documented in this encounter Results * CT ABDOMEN/PELVIS WITH CONTRAST (10/15/2024 1:02 PM EST) Anatomical Region Laterality Modality Radiographic Daniella ging [facility] IMG XR PROCEDURES Final Result documented in this encounter Visit Diagnoses Not on filedocumented in this encounter Additional Health Concerns Assessment Noted Time PHQ-9 Depression Total Score: 1 02/15/20 24 4:46 PM EDT documented as of this encounter Care Teams Digital Sales Representative Relationship Specialty Start Date End Date Mike Steiner MD PCP - General Family Medicine 08/20/24 Kirstin Miller NP Nurse Practitioner Family Medicine 08/09/23 documented as of this encounter
--- OUTSIDE RECORDS SUMMARY | 2025-07-10 08:36 | XMS_ITS | Encounter Summary ---
Author Organization [facility] Address [address] [facility] [place] [address] Care Team Providers Care Veneer Drier Tailer Name Role Phone Mike Steiner MD Primary Care Provider [phone] Kirstin Miller SURVEY WORKERS SUPERVISOR Unavailable [phone] Mike Steiner MD Primary Care Provider [phone] Encounter Details Date Type Department Care Team (Late st Contact Info) Description 02/16/2024 Orders Only [facility] [address] [facility] [address] [place] [address] Jose Roberson MD [address] [place] [address] Social History Tobacco Use Types [...] Anatomical Region Laterality Modality Radiographic Daniella ging Jose Roberson MD IMG XR PROCEDURES Final Resu lt documented in this encounter Visit Diagnoses Not on filedocumented in this encounter Additional Health Concerns Assessment Noted Time PHQ-9 Depression Total Score: 1 02/15/20 24 4:46 PM EDT documented as of this encounter Care Teams Veneer Drier Tailer Relationship Specialty Start Date End Date Mike Steiner MD PCP - General Family Medicine 08/09/23 08/19/24 Mike Steiner MD PCP - General Family Medicine 08/20/24 Kirstin Miller NP Nurse Practitioner Family Medicine 08/09/23 documented as of this encounter
--- OUTSIDE RECORDS SUMMARY | 2025-07-10 08:36 | XMS_ITS | Encounter Summary ---
Author Organization [facility] Address [address] [facility] [place] [address] Care Team Providers Care Head Waiter/Waitress Name Role Phone Kirstin Miller NP Unavailable [phone] Mike Steiner MD Primary Care Provider [phone] Encounter Details Date Type Department Care Team (Late st Contact Info) Description 09/19/2024 Orders Only [facility] [address] [place] [address] Kirstin Miller, PROJECT FACILITATOR [address] [place] [address] Social History Tobacco Use Types Packs/Day Years [...] (09/19/2024 8:43 AM EST) us Kirstin Miller NP LAB CHG PERFORMABLES Final Resu lt documented in this encounter Visit Diagnoses Not on filedocumented in this encounter Additional Health Concerns Assessment Noted Time PHQ-9 Depression Total Score: 1 02/15/20 24 4:46 PM EDT documented as of this encounter Care Teams Head Waiter/Waitress Relationship Specialty Start Date End Date Mike Steiner MD PCP - General Family Medicine 08/20/24 Kirstin Miller NP Nurse Practitioner Family Medicine 08/09/23 documented as of this encounter
--- OUTSIDE RECORDS SUMMARY | 2025-07-10 08:36 | XMS_ITS | Encounter Summary ---
Author Organization [facility] Address [address] [place] [address] Care Team Providers Care Patient Centered Care Specialist Name Role Phone Kirstin Miller NP Unavailable [phone] Mike Steiner MD Primary Care Provider Encounter Details Date Type Department Care Team (Late st Contact Info) Description 10/22/2024 Orders Only [facility] [address] [place] [address] Kirstin Miller, AREA SECRETARY [address] [place] [address] Thickened endometrium (Primary Dx) Social History Tobacco [...] documented as of this encounter Care Teams Patient Centered Care Specialist Relationship Specialty Start Date End Date Mike Steiner MD PCP - General Family Medicine 08/20/24 Kirstin Miller NP Nurse Practitioner Family Medicine 08/09/23 documented as of this encounter
--- OUTSIDE RECORDS SUMMARY | 2025-07-10 08:36 | XMS_ITS | Encounter Summary ---
Author Organization [facility] Address [address] [place] [address] Care Team Providers Care Tribunal Member Name Role Phone Kirstin Miller MD Primary Care Provider [phone] Reason for Visit * Reason Comments Med Refill Encounter Details Date Type Department Care Team (Late st Contact Info) Description 12/02/2022 Refill [facility] Cardiology [address] [place] [id number] Nela Garcia, CHEMICALS FERMENTATION OPERATOR [address] [place] [address] Essential (primary) hypertension Social History [...] hypertension documented in this encounter Care Teams Tribunal Member Relationship Specialty Start Date End Date Kirstin Miller MD [address] [place] [address] PCP - General 01/16/23 documented as of this encounter
--- OUTSIDE RECORDS SUMMARY | 2025-07-10 08:36 | XMS_ITS | Clinical Summary ---
Author Organization [facility] Address [address] [place] [address], [address] [place] [address] Care Team Providers Care Half Backer Name Role Phone Unavailable Primary Care Provider [...]
--- OUTSIDE RECORDS SUMMARY | 2025-07-10 08:36 | XMS_ITS | Clinical Summary ---
Author Organization [facility] Address [address] [place] [address] Care Team Providers Care Pottery Kiln Builder Name Role Phone Paul Kirstin Vitale CNP [...] - Currently in sinus rhythm - Continue CAREER CONSULTANT Eliquis and metoprolol - Tele order Assessment [...] 74 - 99 mg/dL Final Comment: The [place] Diabetes Association (ADA) provides guidance for cutoff [...] Standards of Medical Care in Diabetes 2016, [place] Diabetes Association. Diabetes Care. 2016.39(Suppl 1). Assessment & Plan (10/16/2024 11:03 PM EST): - Blood glucose 127 in the ED - Continue CAREER CONSULTANT metformin and glipizide - SSI - Carb [...] Monitor gilmer outpt- most likely d/c tomorrow [facility] POD #2 Pain controll- toradol added for [...] had LAD stent placed 2005 followed per Curriculum Development Manager Dr. Roberson Resolved Problems Problem Noted [...] drink = 0.6 oz pur e alcohol) [facility] Utilities Answer Date Recorded In the past 12 months has th e [employer], gas, oil, or water [employer] threatened to shut off services in your [...] any time in the past 12 m [facility], were you homeless or living in a correction (including now)? No 10/17/2024 Area Deprivation Index Answer Date Terry rded National Score (1-100), lower number is lower ri sk 63 10/17/2024 State Score (1-10), lower number is lower risk 4 10/17/2024 Data from: https://www.neighborhoodatlas.medicine.[facility].edu/. Last address used for calculation [...] exists Pneumococcal Vaccine: 50+ Completed 07/26/2016, Insurance [facility] [place] [address] [address] [phone] Advance Directives * Full Code (Latest Code Status on File) Date Activated Date Inactivated Comments 10/16/2024 8:19 PM 10/21/2024 9:41 PM Question Answer Comments Full Code Order Discussed With: Discussion Not M edically Appropriate * Full Code Date Activated Date Inactivated Comments 03/28/2022 5:55 PM 04/07/2022 4:54 PM Question Answer Comments Full Code Order Discussed With: Patient Care Teams Pottery Kiln Builder Relationship Specialty Start Date End Date Kirstin Miller, QUALITY PROCESS LEAD [facility] [place] [address] PCP - General Family Medicine 10/16/24
--- OUTSIDE RECORDS SUMMARY | 2025-07-10 08:36 | XMS_ITS | Encounter Summary ---
Author Organization [facility] Address [address] [facility] [place] [address] Care Team Providers Care Rip And Groove Machine Operator Name Role Phone Kirstin Miller RESTAURANT GENERAL MANAGER Unavailable [phone] Mike Steiner MD Primary Care Provider Encounter Details Date Type Department Care Team (Late st Contact Info) Description 08/23/2024 Orders Only [facility] [address] [place] [address] Kirstin Miller, RESTAURANT GENERAL MANAGER [address] [place] [address] Social History Tobacco Use Types Packs/Day Years [...] documented as of this encounter Care Teams Rip And Groove Machine Operator Relationship Specialty Start Date End Date Mike Steiner MD PCP - General Family Medicine 08/20/24 Kirstin Miller NP Nurse Practitioner Family Medicine 08/09/23 documented as of this encounter
--- OUTSIDE RECORDS SUMMARY | 2025-07-10 08:36 | XMS_ITS | Encounter Summary ---
Author Organization [facility] Address [address] [facility] [place] [address] Care Team Providers Care Mold Sheet Cleaner Name Role Phone Kirstin Miller BOILERMAKER FITTER Unavailable [phone] Mike Steiner MD Primary Care Provider Encounter Details Date Type Department Care Team (Late st Contact Info) Description 05/22/2025 Abstract [facility] [address] [place] [address] Kirstin Miller, BOILERMAKER FITTER [address] [place] [address] Social History Tobacco Use Types Packs/Day Years [...] documented as of this encounter Care Teams Mold Sheet Cleaner Relationship Specialty Start Date End Date Mike Steiner MD PCP - General Family Medicine 11/12/24 Kirstin Miller NP Nurse Practitioner Family Medicine 08/09/23 documented as of this encounter
--- OUTSIDE RECORDS SUMMARY | 2025-07-10 08:36 | XMS_ITS | Encounter Summary ---
Author Organization [facility] Address [address] [facility] [place] [address] Care Team Providers Care System Integration Engineer Name Role Phone Kirstin Miller NP Unavailable [phone] Mike Steiner MD Primary Care Provider [phone] Encounter Details Date Type Department Care Team (Late st Contact Info) Description 09/17/2024 Orders Only [facility] [address] [place] [address] Kirstin Miller, RADIO COMMUNICATIONS MECHANICIAN [address] [place] [address] Social History Tobacco Use Types Packs/Day Years [...] Chest Radiographic Daniella ging us Kirstin Miller NP IMG XR PROCEDURES Final Result documented in this encounter Visit Diagnoses Not on filedocumented in this encounter Additional Health Concerns Assessment Noted Time PHQ-9 Depression Total Score: 1 02/15/20 24 4:46 PM EDT documented as of this encounter Care Teams System Integration Engineer Relationship Specialty Start Date End Date Mike Steiner MD PCP - General Family Medicine 08/20/24 Kirstin Miller NP Nurse Practitioner Family Medicine 08/09/23 documented as of this encounter
--- OUTSIDE RECORDS SUMMARY | 2025-07-10 08:36 | XMS_ITS | Encounter Summary ---
Author Organization [facility] Address [address] [place] [address] Care Team Providers Care Factory Hand Name Role Phone Mike Steiner MD Primary Care Provider [phone] Kirstin Miller NP Unavailable [phone] Mike Steiner MD Primary Care Provider [phone] Encounter Details Date Type Department Care Team [...] Not at all 02/15/2024 4:46 PM EDT Madiha Romeo MA Feeling down, depressed, or hopeless Not at all 02/15/2024 4:46 PM EDT Madiha Romeo MA Patient Health Questionnaire-2 Score 0 02/15/2024 4:46 PM EDT Edwina Romeo MA * Question Answer Date of Assessment Author Trouble falling or staying asleep, or sleeping too much Not at all 02/15/2024 4:46 PM EDT Naya Reyes MA Feeling tired or having little energy Several days 02/15/2024 4:46 PM Madiha Le MA Poor appetite or overeating Not at all 02/15/2024 4: 46 PM Naya Le MA Feeling bad about yourself - or that you are a failure or have let yourself or your family down Not at all 02/15/2024 4:46 PM HUYT Madiha Romeo MA Trouble concentrating on things, such as reading the newspaper or watching television Not at all 02/15/2024 4:46 PM HUYT Madiha Romeo MA Moving or speaking so slowly that other people could have noticed? Or the opposite - being so fidgety or restless that you have been moving around a lot more than usual. Not at all 02/15/2024 4:46 PM Madiha Le MA Thoughts that you would be better off or hurting yourself in some way Not at all 02/15/2024 4:46 PM Sebastian Le MA Patient Health Questionnaire-9 Score 1 02/15/2024 4:46 PM Edwina Le MA * How difficult have these problems made it for you to do your work, take care of things at home, or get along with other people? Answer Date of Assessment Author Not difficult at all 02/15/2024 4:46 PM Naya Gloria MA * Geriatric Depression Scale (Short Version) Question Answer Date of Assessment Author Are you basically satisfied with your life? Yes 02/15/2024 4:49 PM Madiha Le MA Have you dropped many of you r activities and interests? No 02/15/2024 4:49 PM Naya Le MA Do you feel that your life i s empty? No 02/15/2024 4:49 PM Madiha Le MA Do you often get bored? No 02/15/2024 4:49 PM Naya Le MA Are you in good spirits most of the time? Yes 02/15/2024 4:49 PM EDT Madiha Romeo MA Are you afraid that somethin g bad is going to happen to you? No 02/15/2024 4:49 PM EDT Naya Xie MA Do you feel happy most of th e time? Yes 02/15/2024 4:49 PM EDT Madiha Romeo MA Do you often feel helpless? No 02/15/2024 4: 49 PM EDT Naya Romeo MA Do you prefer to stay at avel e, rather than going out and doing new things? Yes 02/15/2024 4:49 PM EDT Madiha Romeo MA Do you feel you have more problems with memory than most? No 02/15/2024 4:49 PM EDT Naya Patten MA Do you think it is wonderful to be alive now? Yes 02/15/2024 4:49 PM EDT Madiha Romeo MA Do you feel pretty worthless the way you are now? No 02/15/2024 4:49 PM EDT Sebastian Romeo MA Do you feel full of energy? Yes 02/15/2024 4: 49 PM EDT Naya Romeo MA Do you feel that your situat ion is hopeless? No 02/15/2024 4:49 PM EDT Madiha Romeo MA Do you think that most peopl e are better off than you are? No 02/15/2024 4:49 PM EDT Naya Reyes MA Geriatric Depression Scale (Short Version) Total 1 02/15/2024 4:49 PM EDT Edwina Romeo MA documented as of this encounter Plan of Treatment Not on file documented as of this encounter Procedures Procedure Name Priority Date/Time Associated Diagnosis Comments CA ECHO DOPPLER COMPLETE 02/15/2024 5:50 PM EDT documented in this encounter Results * CA ECHO DOPPLER COMPLETE (02/15/2024 5:50 PM EDT) Anatomical Region Laterality Modality Other 02/15/2024 5:50 PM EDT Narrative 02/15/2024 5:52 [place] [address] Cardiology Report Signed Patient: BHUMIKA JOHNSON MR#: [id number] : 1940 Acct:[id number] Age/Sex: 83 / F ADM Date: 02/15/24 Loc: CARD Attending Dr: MONI ROBERSON Ordering Physician: MONI ROBERSON Date of Service: 02/15/24 Procedure(s): CA echo doppler complete Accession Number(s): [id number] cc: Kirstin Miller WREATH INSPECTOR; MONI ROBERSON Patient Name: BHUMIKA JOHNSON MR#: [id number] : 1940 Exam Date: 02/15/2024 Ordering Doctor: [...] ROBERSON Signed By: 02/15/241751 DD/ 49 TD/TT: Health Services Rn: Procedure Note Radiology, Radiologist, MD - 02/15/2024 [place] [address] Cardiology Report Signed Patient: BHUMIKA JOHNSON SMR#: [id number] : 1940cct:[id number] Age/Sex: 83 / FADM Date: 02/15/24 Loc: CARD Attending Dr: MONI ROBERSON Ordering Physician: MONI ORBERSON Date of Service: 02/15/24 Procedure(s): CA echo doppler complete Accession Number(s): [id number] cc: Kirstin Miller WREATH INSPECTOR; MONI ROBERSON Patient Name: BHUMIKA JOHNSON MR#: [id number] : 1940 Exam Date: 02/15/2024 Ordering Doctor: [...] MONI ROBERSON Signed By:02/15/241751 DD/ 49 TD/TT: Health Services Rn: us Generic External Data Provider [facility] Final Result documented in this encounter Visit Diagnoses Not on filedocumented in this encounter Additional Health Concerns Assessment Noted Time PHQ-9 Depression Total Score: 1 02/15/20 24 4:46 PM EDT documented as of this encounter Care Teams Factory Hand Relationship Specialty Start Date End Date Mike Steiner MD PCP - General Family Medicine 08/09/23 08/19/24 Mike Steiner MD PCP - General Family Medicine 08/20/24 Kirstin Miller NP Nurse Practitioner Family Medicine 08/09/23 documented as of this encounter
--- NOTE | 2025-07-10 08:37 | US_ITS ---
The [address] [address] Patient Name: SAEED JOHNSON MRN: [id number] date: 1940 Sex: F Assigned Patient Location: US Current Patient Location: US Accession/Order Number: [id number] Exam Date: 07/10/2025 08:40 Report Date: 07/10/2025 09:59 At the request of: CARI LEBLANC MD Procedure: US renal BI BILATERAL RENAL AND BLADDER ULTRASOUND CLINICAL HISTORY: Abdominal pain and history of recent right ureterovesical junction stone. COMPARISON: CT 06/29/2025 Estimation of renal size is approximately 9.5 cm on the right and 9.9 cm on the left. No shadowing calculi or hydronephrosis are identified. No renal mass lesions were imaged. There is no perinephric fluid. The urinary bladder is partially distended with a volume of 52 mL. No intraluminal abnormalities are seen. Borderline wall thickening may relate to incomplete distention. US/US renal BI IMPRESSION: NO OBSTRUCTIVE UROPATHY. Impression dictated by: Kathy Samuel M.D. 07/10/2025 9:59 AM Dictation Location: [place] [address] Electronically authenticated by: [id number] Y Date: 07/10/2025 09:59
--- OUTSIDE RECORDS SUMMARY | 2025-07-10 08:37 | XMS_ITS | Encounter Summary ---
Author Organization [facility] Address [address] [facility] [place] [address] Care Team Providers Care Electrodynamicist Name Role Phone Kirstin Miller NP Unavailable [phone] Mike Steiner MD Primary Care Provider [phone] Encounter Details Date Type Department Care Team (Late st Contact Info) Description 12/26/2024 Orders Only [facility] [address] [place] [address] Kirstin Miller, STERILISATION TECHNICIAN [address] [place] [place] [address] Social History Tobacco Use Types Packs/Day Years [...] documented as of this encounter Care Teams Electrodynamicist Relationship Specialty Start Date End Date Mike Steiner MD PCP - General Family Medicine 08/20/24 Kirstin Miller NP Nurse Practitioner Family Medicine 08/09/23 documented as of this encounter
--- OUTSIDE RECORDS SUMMARY | 2025-07-10 08:37 | XMS_ITS | Encounter Summary ---
Author Organization [facility] Address [address] [facility] [place] [address] Care Team Providers Care Powderer Name Role Phone Kirstin Miller NP Unavailable [phone] Mike Steiner MD Primary Care Provider [phone] Encounter Details Date Type Department Care Team (Late st Contact Info) Description 04/21/2025 Orders Only [facility] [address] [place] [address] Social History Tobacco Use Types Packs/Day Years [...] Lower Extremities, Foot Left Radiogra phic Imaging [facility] IMG XR PROCEDURES Final Result * XR knee 3 views left (04/21/2025 9:35 AM EDT) Anatomical Region Laterality Modality Lower Extremities, Knee Left Radiogra phic Imaging [facility] IMG XR PROCEDURES Final Result * XR ankle 3+ views left (04/21/2025 9:34 AM EDT) Anatomical Region Laterality Modality Lower Extremities, Ankle Left Radiogr aphic Imaging [facility] IMG XR PROCEDURES Final Result documented in this encounter Visit Diagnoses Not on filedocumented in this encounter Additional Health Concerns Assessment Noted Time PHQ-9 Depression Total Score: 1 02/19/20 25 10:38 AM EDT documented as of this encounter Care Teams Powderer Relationship Specialty Start Date End Date Mike Steiner MD PCP - General Family Medicine 08/20/24 Kirstin Miller NP Nurse Practitioner Family Medicine 08/09/23 documented as of this encounter
--- OUTSIDE RECORDS SUMMARY | 2025-07-10 08:37 | XMS_ITS | Clinical Summary ---
Author Organization [facility] Healthcare Address [address] [place] [address] Care Team Providers Care Tool Sharpener Name Role Phone Kirstin Miller NP Unavailable [phone] Mike Steiner MD Primary Care Provider Allergies Active Allergy Reactions [...] Use as instructed 50 each 8 5 026 Active Drug Garfield Unilet Lancets 30G misc use to test BLOOD SUGAR DAILY 5 Active Blood Glucose Monitoring Suppl (True Metrix Meter) w/Device kit USE DIRECTED 5 Active glipiZIDE (Glucotrol) 5 MG tabletIndications :Type 2 diabetes mellitus without complications (HCC) Take 1 tablet (5 mg) by mouth in the morning and 1 tablet (5 mg) in the evening. Take before meals. 180 tablet 1 5 Active Additional Information Patient taking differently: 2.5 mgOral 2 times daily before meals, Morning, Evening, Reported on 05/22/2025 metFORMIN (Glucophage) 1000 MG tabletIndications :Type 2 diabetes mellitus without complications (HCC) Take 1 tablet (1,000 mg) by mouth in the morning and 1 tablet (1,000 mg) in the evening. Take with meals. 180 tablet 1 5 025 Active pantoprazole (ProtoNix) 40 MG EC tabletIndications :Acute gastric ulcer without hemorrhage or perforation Take 1 tablet (40 mg) by mouth in the morning and 1 tablet (40 mg) in the evening. Take before meals. 180 tablet 1 5 025 Active Active Problems Problem Noted Date Diagnosed [...] Plan (10/30/2024 6:56 AM EST): Continue with [facility] Will be having biopsy Endocervical polyp 10/29/2024 Assessment & Plan (10/30/2024 6:56 AM EST): Noted on [facility] exam and pelvic US Will get biopsy Endometrial polyp 10/29/2024 Assessment & Plan (10/30/2024 6:57 AM EST): Seen on [facility] exam and had US, will be having [...] 10/16/2024 Overview (10/18/2024): Had MRI brain at [facility] 09/19/24: mod periventricular FLAIR [...] perfor ation 09/30/2024 Overview (10/18/2024): EGD at [facility] 10/01 mild LA grade [...] (09/30/2024 1:08 PM EST): Was transferred to [facility] for this, no surgery as of yet Will need to review notes Acute metabolic encephalopathy 09/17/2024 Assessment & Plan (10/30/2024 6:54 AM EST): Dx in hospital Assessment & Plan (09/30/2024 1:07 PM EST): Was part of diagnosis when admitted to [facility] for gallballer resolved Cholelithiasis [...] blood test 02/15/2024 Encounter for subsequent [facility] wellness visit (AWV) in Medicare [...] regurgitation 02/01/2012 Type 2 diabetes mellitus without complications 0 02/01/2012 Overview (02/15/2024): Last Assessment & Plan: [...] Encounters Date Type Department Care Team Description 05/28/2025 Clinisync Result Encounter [facility] External Department Unsolicited Kirstin Miller NP 05/22/2025 10:30 AM EDT Office Visit [facility] [address] [place] [address] Kirstin Miller NP Type 2 diabetes mellitus without complication, without [...] without hemorrhage or perforation 05/22/2025 [facility] [address] [place] [address] Kirstin Miller NP 05/22/2025 Bamboo flowsheet [facility] [address] [place] [address] Kirstin Miller NP 04/21/2025 Abstract [facility] [address] [place] [id number] Kirstin Miller NP 04/21/2025 Orders Only [facility] [address] [place] [id number] from Last 3 Months Immunizations Immunization Administration [...] 09/30/2024 10:40 AM EST Plan of Treatment Health Maintenance Due Date Last Done Comments Influenza Vaccine (#1) 2025 4, 07/25/2023, 08/08/2022, Additional history exists Pneumococcal Vaccine: 65+ Years Completed 6, 03/23/2015 Procedures Procedure Name Priority Date/Time Associated Diagnosis Comments BI MAMMOGRAM SCREENING BILATERAL 05/28/2025 2:29 PM EDT XR FOOT 3+ VIEWS LEFT Routine 04/21/2025 9:36 AM EDT XR KNEE 3 VIEWS LEFT Routine 04/21/2025 9:35 AM EDT XR ANKLE 3+ VIEWS LEFT Routine 04/21/2025 9:34 AM EDT from Last 3 Months Results * Bilateral screening mammogram (05/28/2025 2:29 PM EDT) Anatomical Region Laterality Modality Breast Bilateral Mammography 05/28/2025 2:29 PM EDT Narrative 05/28/2025 2:29 [place] [address] Mammography Report Signed Patient: BHUMIKA JOHNSON MR#: [id number] : 1940 Acct:[id number] Age/Sex: 84 / F ADM Date: 05/28/25 Loc: MAMMO Attending Dr: Kirstin Miller NP Ordering Physician: Kirstin Miller NP Results: Date of Service: 05/28/25 Follow Up: Procedure(s): MM screening mammo BI Accession Number(s): [id number] cc: Kirstin Miller NP Patient Name: BHUMIKA JOHNSON MR#: [id number] : 1940 Exam Date: 05/28/2025 Ordering Doctor: [...] breast cancer at age 89. LOCATION: [facility] BREAST COMPOSITION: The breasts are almost [...] Signed By: 05/28/25 1429 DD/ 1429 TD/TT: Tour Actor: Procedure Note Radiology, Radiologist, MD - 05/28/2025 [place] [address] Mammography Report Signed Patient: BHUMIKA JOHNSON SMR#: [id number] : 1940cct:[id number] Age/Sex: 84 / FADM Date: 05/28/25 Loc: MAMMO Attending Dr: Kirstin Miller NP Ordering Physician: Kirstin Miller NPResults: Date of Service: 05/28/25Follow Up: Procedure(s): MM screening mammo BI Accession Number(s): [id number] cc: Kirstin Miller NP Patient Name: BHUMIKA JOHNSON MR#: [id number] : 1940 Exam Date: 05/28/2025 Ordering Doctor: LEXI MILLER CNP RADIOLOGY REPORT PROCEDURE: MM SCREENING MAMMO BI COMPARISON: None. INDICATIONS: Screening Calculator Name NCI Breast Cancer Risk Assessment Tool 5 Year Breast Cancer Risk 6.20% Lifetime Breast Cancer Risk 6.90% Personal Breast Cancer No Personal Ovarian Cancer No Treatments None Family Cancers Sister with breast cancer at age 73; Daughter withbreast cancer at age 62; Daughter with breast cancer at age 59; Daughter withbreast cancer at age 53; Aunt-maternal with breast cancer at age 90. LOCATION: [facility] BREAST COMPOSITION: The breasts are almost entirely fatty. FINDINGS: RIGHT BREAST: No significant suspicious finding. LEFT BREAST: No significant suspicious finding. DIAGNOSTIC CATEGORY 1--NEGATIVE. RECOMMENDATIONS: ROUTINE MAMMOGRAM AND CLINICAL EVALUATION IN 12 MONTHS. PLEASE NOTE: A NORMAL MAMMOGRAM DOES NOT EXCLUDE THE POSSIBILITY OFBREAST CANCER. A CLINICALLY SUSPICIOUS PALPABLE LUMP SHOULD BE BIOPSIED. Dictated by: Jamin Barnhart MD on 05/28/2025 at 14:27 Approved by: Jamin Barnhart MD on 05/28/2025 at 14:29 Dictated By: Jamin Barnhart M.D. Signed By:05/28/25 1429 DD/ 1429 TD/TT: Tour Actor: Kirstin Miller NP IMG BI PROCEDURES Final Result * XR foot 3+ views left (04/21/2025 9:36 AM EDT) Anatomical Region Laterality Modality Lower Extremities, Foot Left Radiogra phic Imaging [facility] XR PROCEDURES Final Result * XR knee 3 views left (04/21/2025 9:35 AM EDT) Anatomical Region Laterality Modality Lower Extremities, Knee Left Radiogra phic Imaging [facility] XR PROCEDURES Final Result * XR ankle 3+ views left (04/21/2025 9:34 AM EDT) Anatomical Region Laterality Modality Lower Extremities, Ankle Left Radiogr aphic Imaging [facility] IMG XR PROCEDURES Final Result from Last 3 Months Insurance MEDICARE [facility] Care Teams Tool Sharpener Relationship Specialty Start Date End Date Mike Steiner MD PCP - General Family Medicine 08/20/24 Kirstin Miller NP Nurse Practitioner Family Medicine 08/09/23
--- OUTSIDE RECORDS SUMMARY | 2025-07-10 08:37 | XMS_ITS | Clinical Summary ---
Author Organization [facility] Address [address] [place] [address] Care Team Providers Care Distributor Publications Name Role Phone Kirstin Miller MD Primary Care Provider [phone] Allergies Active Allergy Reactions Criticality Noted Date [...] at bedtime. 180 tablet 3 5 Active lisinopril 20 mg tabletIndication s:Primary hypertension Take 1 tablet (20 mg) by mouth once daily as directed. 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 90 tablet 3 5 05/20/20 26 Active Active Problems Problem Noted Date Diagnosed [...] Overview (11/07/2024): Had MRI brain at [facility] 09/19/24: mod periventricular FLAIR hyperintensities (chronic microvascular ischemia), seq of non acute lacunar infarct right centrum semiovale Non-recurrent acute suppurat shaina otitis media of right ear without spontaneous rupture of tympanic membrane 10/10/2024 Other acute sinusitis 10/10/2024 Acute gastric ulcer without hemorrhage or perfor ation 09/30/2024 Overview (11/07/2024): EGD at [facility] 10/01 mild LA grade A esophagitis, 2 small ulcers Thickened endometrium 09/30/2024 Acute abdominal pain 09/17/2024 Assessment & Plan (09/17/2024 9:19 PM EST): Relevant Hx: CT scan completed at [facility] on 09/17/24 indicated cholecystitis and cholelithiasis Today's Plan: Discussed with Dr. Lombardi, not clear that her abdominal pain is due to acute cholecystitis as lipase, bilirubin, WBC are all WNL and physical exam findings do not correlate well with cholecystitis. 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 05/19/2025 [facility] [address] [place] [address] Magi Tatum MA 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 Patient unable to answer 09/18/2024 [...] of 2) 1990 COVID-19 Vaccine ( season) 2025 07/22/2024, 07/25/2023, 08/12/2022, Additional history exists Influenza [...] age to complete this topic Insurance MEDICARE [facility] Advance Directives * Full Code (Latest Code Status on File) Date Activated Date Inactivated Comments 09/17/2024 10:17 PM 09/21/2024 4:43 PM Care Teams Distributor Publications Relationship Specialty Start Date End Date Kirstin Miller MD [address] [place] [address] PCP - General 01/16/23
--- OUTSIDE RECORDS SUMMARY | 2025-07-10 08:37 | XMS_ITS | Encounter Summary ---
Author Organization [facility] Address [address] [place] [address] Care Team Providers Care Stem Cutter Name Role Phone Paul Kirstin Vitale CNP Primary Care Provider [phone] Source Comments In the event this information is protected by the Federal Confidentiality of Alcohol and Drug AbusePatient Records regulations: The Federal rules restrict any use of the information to criminally investigate or prosecute any alcohol or drug abuse patient.[facility] Encounter Details Date Type Department Care Team (Late st Contact Info) Description 11/29/2024 Get Medical Advice Obstetrics/Gynecology [address] [place] [address] Provider, [facility] Procedure on 12/06 Social History Tobacco Use Types Packs/Day Years Used Date Smoking Tobacco: Never Passive Smoke Exposure: Never Smokeless Tobacco: Never Alcohol Use Standard Drinks/Week Comments Never 0 (1 standard drink = 0.6 oz pur e alcohol) [facility] Utilities Answer Date Recorded In the past 12 months has [employer], [employer], or [employer] threatened to shut off services in your [...] were you homeless or living in a halfway (including now)? No 10/17/2024 Area Deprivation Index Answer Date Terry rded National Score (1-100), lower number is lower ri sk 63 10/17/2024 State Score (1-10), lower number is lower risk 4 10/17/2024 Data from: https://www.neighborhoodatlas.medicine.[facility].edu/. Last address used for calculation [address] [...] on filedocumented in this encounter Care Teams Stem Cutter Relationship Specialty Start Date End Date Kirstin Miller CNP [address] [place] [address] PCP - General Family Medicine 10/16/24 documented as of this encounter
--- OUTSIDE RECORDS SUMMARY | 2025-07-10 08:37 | XMS_ITS | Encounter Summary ---
Author Organization [facility] Address [address] [place] [address] Care Team Providers Care Musical Performer Name Role Phone Kirstin Miller HEAD OF PARTNER DEVELOPMENT Unavailable [phone] Mike Steiner MD Primary Care Provider [phone] Encounter Details Date Type Department Care Team (Late st Contact Info) Description 04/21/2025 Abstract [facility] [address] [place] [address] Kirstin Miller, HEAD OF PARTNER DEVELOPMENT [address] [place] [address] Social History Tobacco Use Types Packs/Day Years [...] documented as of this encounter Care Teams Musical Performer Relationship Specialty Start Date End Date Mike Steiner MD PCP - General Family Medicine 11/12/24 Kirstin Miller NP Nurse Practitioner Family Medicine 08/09/23 documented as of this encounter
== END 2025-07-10 08:33 | disposition home or self-care (01) ==
LOC: US 08:32
PROVIDERS: PCP Nurse Practitioner; Visit Provider Student in an Organized Health Care Education/Training Program
DX: N13.2 Hydronephrosis with renal and ureteral calculous obstruction (principal)
CPT/HCPCS: 76775